=== PATIENT | female | born 1960 | race Caucasian/White ===

== ENCOUNTER 2022-06-15 16:51 | Outpatient (REF) | payer MEDICARE, MEDICAID, SELFPAY ==
[2022-06-15 16:38] LABS: ALT 20 U/L (14-59); AST 18 U/L (15-37); Albumin 3.9 g/dL (3.4-5.0); Alkaline Phosphatase 125 U/L (46-116); Anion Gap 8.6 mmol/L (3-11); BUN 26 mg/dL (7-18); Bilirubin, Total 0.3 mg/dL (0.2-1.0); CO2 29.4 mmol/L (21.0-32.0); CREATININE 0.9 mg/dL (0.55-1.02); Calcium 9.2 mg/dL (8.5-10.1); Chloride 99 mmol/L (98-107); Estimated GFR 72.28 (mL/min/1.73m2); Glucose 147 mg/dL (74-106); Potassium 4.1 mmol/L (3.5-5.1); Sodium 137 mmol/L (136-145)
[2022-06-16 17:18] LABS: COMMENT (LAB VIEW ONLY) 64.76 mg/dL; Microalb ug/mg Crea 4.3 ug/mg Cr
[2022-06-16 17:23] LABS: Bilirubin Negative (Negative); Blood Trace-intact (Negative); Clarity Clear (Clear); Glucose Negative (Negative); Ketones Negative (Negative); Leukocyte Esterase Small (Negative); Nitrite Negative (Negative); Specific Gravity 1.015 (1.005-1.025); Urobilinogen 0.2 EU/dL (Up TO 0.2); pH 6.5 (5-8)
[2022-06-16 17:38] LABS: Bacteria Few HPF (Negative); C & S Indicated? Yes; Crystals Negative HPF (Negative); Epithelial Cells Few HPF (Negative); Mucus Trace (Negative); RBC 0-2 HPF (0-2)
== END 2022-06-15 16:52 | disposition home or self-care (01) ==
LOC: NCHCN 16:51
PROVIDERS: PCP Nurse Practitioner Family; Visit Provider Nurse Practitioner Family
DX: N39.0 Urinary tract infection, site not specified (principal)
CPT/HCPCS: 80053; 81003; 81015; 82043; 82570; 87086

== ENCOUNTER 2022-08-02 11:02 | Outpatient (REF) | payer MEDICARE, MEDICAID, SELFPAY ==
[2022-08-02 10:03] LABS: Abs Immature Grans 0.04 10^3/uL (0.0-0.06); Absolute Basophil Count 0.08 10^3/uL (0.0-0.2); Absolute Eosinophil Count 0.08 10^3/uL (0.0-0.7); Absolute Lymphocyte Count 1.77 10^3/uL (1.2-3.4); Basophils % 0.9; Eosinophils % 0.9; HCT 43.3 % (36.0-46.0); HGB 13.5 g/dL (11.2-15.7); Immature Grans % 0.4; Lymphocytes % 19.5; MCH 30.5 pg (27.0-33.0); MCHC 31.2 % (32.0-36.0); MCV 98 fL (80-95); MPV 9.9 fL (8.0-11.0); Monocytes % 5.5; Neutrophils % 72.8; Platelet Count 245 10^3/uL (130-400); RBC 4.43 10^6/uL (3.93-5.22); RDW 14.2 % (11.7-14.6); RDW-SD 51.9 fL; WBC 9.07 10^3/uL (4.4-10.8)
[2022-08-02 10:12] LABS: Iron 119 ug/dL (50-170); Total Iron Binding Capacity 370 ug/dL (250-450); Transferrin Sat 32 % (15-50)
[2022-08-02 10:36] LABS: Vitamin D 25 Total 55.3 ng/mL (30-100)
[2022-08-02 10:42] LABS: ALT 18 U/L (14-59); AST 13 U/L (15-37); Albumin 3.8 g/dL (3.4-5.0); Alkaline Phosphatase 116 U/L (46-116); BUN 21 mg/dL (7-18); Bilirubin, Total 0.3 mg/dL (0.2-1.0); CREATININE 0.8 mg/dL (0.55-1.02); Calcium 9.5 mg/dL (8.5-10.1); Chloride 102 mmol/L (98-107); Estimated GFR 83.26 (mL/min/1.73m2); Ferritin 29 ng/mL (8-252); Glucose 110 mg/dL (74-106); Magnesium 1.8 mg/dL (1.8-2.4); Potassium 4.3 mmol/L (3.5-5.1); Sodium 139 mmol/L (136-145); TSH (W/Ref FT4) 1.83 uIU/mL (0.36-3.74); Total Protein 6.7 g/dL (6.4-8.2); Vitamin B12 1583 pg/mL (193-986)
[2022-08-02 10:49] LABS: GGT 19 U/L (5-55)
[2022-08-02 12:01] LABS: Hemoglobin A1C 5.9 % (<5.7)
[2022-08-02 23:42] LABS: Parathyroid Hormone,Intact 38 pg/mL (19-88)
[2022-08-05 20:17] LABS: Thiamine (Vitamin B1), WB 168 nmol/L (70-180)
== END 2022-08-02 11:03 | disposition home or self-care (01) ==
LOC: NCHCN 11:02
PROVIDERS: PCP Nurse Practitioner Family; Visit Provider Nurse Practitioner Family
DX: E66.9 Obesity, unspecified (principal); R73.03 Prediabetes; K59.00 Constipation, unspecified; E55.9 Vitamin D deficiency, unspecified; E03.9 Hypothyroidism, unspecified; E53.8 Deficiency of other specified B group vitamins; I25.10 Atherosclerotic heart disease of native coronary artery without angina pectoris
CPT/HCPCS: 80053; 82306; 82607; 82728; 82977; 83036; 83540; 83550; 83735; 83970; 84425; 84443; 85025

== ENCOUNTER 2022-08-20 00:42 | Outpatient (CLI) | payer MEDICARE, MEDICAID, SELFPAY ==
--- NOTE | 2022-08-20 | DI.CTLCSR_ITS ---
Exam(s) CT CHEST LUNG CANCER SCREEN EXAM: CT CHEST LUNG CANCER SCREEN CLINICAL HISTORY: SCREENING FOR LUNG CA, SMOKER,F17.210 TECHNIQUE: Imaging Protocol: Axial computed tomography images with coronal and sagittal reformatted images were created and reviewed COMPARISON: No exams were available for comparison FINDINGS: Tracheobronchial tree: Patent where visualized. Pulmonary parenchyma: No consolidation or dominant measurable mass. No architectural distortion. Ther e are calcified granuloma present. Lung Nodules: There is a 4 mm nodule in the right lower lobe. Mediastinum and Ruth: No dominant adenopathy or fluid collection. The esophagus is unremarkable. Thyroid gland: Unremarkable. Lymph nodes: Unremarkable. Pleura: No effusion or pneumothorax. Heart: The heart is not dilated. Moderate coronary artery calcification is present. No pericardial e ffusion. Aorta: Thoracic aorta non-dilated.Atherosclerosis is present. Upper abdomen: Status post cholecystectomy. Soft Tissues: Unremarkable. Bones: Within normal limits. IMPRESSION: 4 mm noncalcified right lower lobe pulmonary nodule. Lung RADS Cat 3 - Probably Benign: Probably benign finding(s) - short term follow-up suggested; inclu de nodules with a low likelihood of becoming a clinically active cancer. Lung-RADS 1.0 CATEGORIES: Category 0 - Prior chest CT exam(s) being located for comparison. Category 1 - Annual screening in 12 months. No nodules or definitely benign nodules. Category 2 - Annual screening in 12 months. Benign appearance. Nodules with low likelihood of becomin g active cancer. Category 3 - 6-month follow-up. Probably benign. Short-term follow-up suggested. Nodules with low lik elihood of becoming active cancer. Category 4A - 3-month follow-up and CT/PET if >8 mm in size. Suspicious finding. Findings which requi re additional testing. Category 4B - Findings which require additional testing and tissue sampling. Suspicious finding. Category 4X - Category 3 or 4 nodules with additional features or imaging findings that increases the suspicion of malignancy. Modifier S- Potentially clinically significant finding. (Non lung cancer) RADIATION DOSE DELIVERED: 87.29mGy.cm Total DLP 87.29mGy.cmTotal DLP DATA REPOSITORY: All CT scans at this facility are submitted to the National Radiology Data Registry (NRDR) Dose Index Registry (DIR) with the [employer] (ACR). RADIATION OPTIMIZATION: All CT scans at this facility use at least one of these dose optimization te chniques: automated exposure control; mA and/or kV adjustment per patient size (includes targeted exa ms where dose is matched to clinical indication); or iterative reconstruction.
== END 2022-08-20 01:02 ==
LOC: DI 00:42
PROVIDERS: PCP Nurse Practitioner Family; Visit Provider Nurse Practitioner Family
DX: Z12.2 Encounter for screening for malignant neoplasm of respiratory organs (principal); F17.210 Nicotine dependence, cigarettes, uncomplicated; R91.1 Solitary pulmonary nodule
CPT/HCPCS: 71271

== ENCOUNTER 2022-09-09 13:37 | Outpatient (REF) | payer MEDICARE, MEDICAID, SELFPAY ==
[2022-09-09 10:17] LABS: Abs Immature Grans 0.03 10^3/uL (0.0-0.06); Absolute Basophil Count 0.06 10^3/uL (0.0-0.2); Absolute Eosinophil Count 0.08 10^3/uL (0.0-0.7); Absolute Monocyte Count 0.55 10^3/uL (0.1-0.8); Absolute Neutrophil Count 5.84 10^3/uL (1.2-6.7); Basophils % 0.7; HCT 42.6 % (36.0-46.0); HGB 13.6 g/dL (11.2-15.7); Immature Grans % 0.4; Lymphocytes % 18.6; MCH 31.2 pg (27.0-33.0); MCHC 31.9 % (32.0-36.0); MCV 98 fL (80-95); MPV 10.1 fL (8.0-11.0); Monocytes % 6.8; Neutrophils % 72.5; Platelet Count 222 10^3/uL (130-400); RBC 4.36 10^6/uL (3.93-5.22); RDW 14.1 % (11.7-14.6); RDW-SD 50.8 fL; WBC 8.06 10^3/uL (4.4-10.8)
[2022-09-09 10:34] LABS: VALPROIC ACID 17.9 ug/mL
[2022-09-09 10:44] LABS: Hemoglobin A1C 5.8 % (<5.7)
[2022-09-09 10:59] LABS: ALT 17 U/L (14-59); AST 11 U/L (15-37); Albumin 3.8 g/dL (3.4-5.0); Alkaline Phosphatase 113 U/L (46-116); BUN 20 mg/dL (7-18); Bilirubin, Total 0.4 mg/dL (0.2-1.0); CREATININE 0.8 mg/dL (0.55-1.02); Calcium 9.4 mg/dL (8.5-10.1); Calculated LDL 41 mg/dL (<100); Chloride 102 mmol/L (98-107); Cholesterol 104 mg/dL (<200); Estimated GFR 83.26 (mL/min/1.73m2); Folate 13.1 ng/mL (8.6-20.0); Glucose 88 mg/dL (74-106); HDL Cholesterol 52 mg/dL (40-60); Potassium 4.7 mmol/L (3.5-5.1); Sodium 140 mmol/L (136-145); Total Protein 6.5 g/dL (6.4-8.2); Triglyceride 56 mg/dL (<150)
[2022-09-09 11:01] LABS: Vitamin D 25 Total 58.4 ng/mL (30-100)
[2022-09-09 11:02] LABS: Vitamin B12 > 2000 pg/mL (193-986)
[2022-09-09 11:19] LABS: FREE T4 1.23 ng/dL (0.76-1.46)
[2022-09-13 09:43] LABS: Insulin 7.8 uIU/mL (<29.0)
== END 2022-09-09 13:38 | disposition home or self-care (01) ==
LOC: LBN 13:37
PROVIDERS: PCP Nurse Practitioner Family; Visit Provider Psychiatry & Neurology Psychiatry
DX: Z79.899 Other long term (current) drug therapy (principal); Z51.81 Encounter for therapeutic drug level monitoring; E03.9 Hypothyroidism, unspecified; E53.8 Deficiency of other specified B group vitamins; E55.9 Vitamin D deficiency, unspecified; E66.8 Other obesity; R73.03 Prediabetes
CPT/HCPCS: 80053; 80061; 82306; 83090; 80164; 82607; 82746; 83036; 83525; 83735; 84439; 84443; 85025

== ENCOUNTER 2022-09-16 11:40 | Observation (INO) | payer MEDICARE, MEDICAID, SELFPAY ==
[2022-09-16 11:40] VITALS: BP 157/75; PULSE 54; RESP 18; TEMP 36.9; O2SAT 95
--- NOTE | 2022-09-16 11:45 | DI.RAD_ITS ---
Exam(s) XR ANKLE RT COMPLETE EXAM: XR ANKLE RT COMPLETE CLINICAL HISTORY: fall, pain. TECHNIQUE: 2D digital imaging was performed of the right ankle. Three images were obtained. AP, la teral and oblique views were obtained. COMPARISON: No exams were available for comparison FINDINGS: BONES: There is an old healed distal fibular fracture. There is an acute comminuted oblique fracture through the metadiaphyseal junction of the distal right tibia. The distal fracture is displaced 1/2 shaft's with laterally. No bony destructive lesion is seen. JOINTS: The ankle mortise is normally aligned. SOFT TISSUE: There is soft tissue swelling about the ankle. IMPRESSION: Acute comminuted displaced fracture of the distal metadiaphyseal junction of the right tibia. Associ ated soft tissue swelling. DATA REPOSITORY: RADIATION DOSE DELIVERED:
--- NOTE | 2022-09-16 11:59 | ED.GENADUL_ITS ---
Discharge Plan Disposition Patient Disposition: Admit to [facility] Condition: Fair Discharge Details Clinical Impression: Closed right tibial fracture, Fall Admit Date/Time: 09/16/22 14:05 Admit Provider: Yannick Saldaña Attending Provider: Yannick Saldaña Primary Care Provider: Jolly Davenport ED Provider: Nuno Purdy Discharge Data Discharge Date/Time-TO BE ENTERED AT DEPARTURE: 09/16/22 15:17 Medical Decision Making 1253??62-year-old female presents after mechanical fall from standing using her walker to the ground with injury to her right ankle. Ankle is exquisitely tender. Concern for fracture. Patient is neurovascular intact distal to injury. No proximal lower leg tenderness. Dilaudid 1 mg IM for pain. Will obtain x-ray 1350 --x-ray of the ankle was reviewed and interpreted by me: Displaced oblique fracture distal tibia. I called and spoke with Dr. Box, on-call orthopedics who evaluated the patient. He recommends posterior splint and CT of the leg. He recommends admission to hospitalist service given medical problems. Posterior splint was applied by me without complication. Patient neurovascular intact post splint application. HPI General Mode of arrival: EMS . Date/Time Provider Initiated Documentation: 09/16/22 11:58 . Limitations to Documentation: no limitations . Information obtained by: patient . HPI Narrative: 62-year-old female here after mechanical fall with injury to her right ankle. Pain in her ankle severe and worse with any movement. No associated numbness or tingling. No other injury sustained. Patient denies neck pain or back pain. Related Data Home Medications Medication Instructions Recorded Confirmed Lactobacillus rhamnosus GG 10 1 cap PO DAILY 09/16/22 09/16/22 billion cell capsule (Culturelle) acetaminophen 500 mg capsule 1,000 mg PO QHS PRN 09/16/22 09/16/22 albuterol 90 mcg/actuation aerosol 90 mcg inhalation Q6H PRN PRN 09/16/22 09/16/22 inhaler ascorbic acid (vitamin C) 1,000 mg 1,000 mg PO DAILY 09/16/22 09/16/22 tablet atorvastatin 40 mg tablet 40 mg PO QPM 09/16/22 09/16/22 calcium citrate 200 mg PO BID 09/16/22 09/16/22 cannabidiol 100 mg/mL oral solution 100 mg PO DAILY 09/16/22 09/16/22 cholecalciferol (vitamin D3) 25 75 mcg PO HS 09/16/22 09/16/22 mcg (1,000 unit) tablet clonazepam 0.5 mg tablet (Klonopin) 0.5 mg PO QPM 09/16/22 09/16/22 cyanocobalamin (vitamin B-12) 1,000 mcg PO HS 09/16/22 09/16/22 1,000 mcg tablet (Vitamin B-12) divalproex 250 mg tablet,extended 250 mg PO QPM 09/16/22 09/16/22 release 24 hr famotidine 20 mg tablet (Pepcid) 20 mg PO DAILY 09/16/22 09/16/22 ferrous sulfate 325 mg (65 mg 325 mg PO DIRECTED 09/16/22 09/16/22 iron) tablet (FeroSul) fluoxetine 20 mg capsule 20 mg PO DAILY 09/16/22 09/16/22 fluticasone 500 mcg-salmeterol 50 1 inh inhalation BID 09/16/22 09/16/22 mcg/dose blistr powdr for inhalation (Advair Diskus) ibuprofen 800 mg tablet 800 mg PO Q8H PRN PRN 09/16/22 09/16/22 lamotrigine 200 mg tablet 200 mg PO QPM 09/16/22 09/16/22 levothyroxine 50 mcg tablet 50 mcg PO DAILY 09/16/22 09/16/22 magnesium oxide 400 mg PO QPM 09/16/22 09/16/22 nicotine (polacrilex) 2 mg gum 2 mg buccal Q2H 09/16/22 09/16/22 nicotine 14 mg/24 hr daily 1 patch transdermal DAILY 09/16/22 09/16/22 transdermal patch nitroglycerin 0.4 mg sublingual 0.4 mg sublingual Q5M PRN 09/16/22 09/16/22 tablet omeprazole 20 mg capsule,delayed 20 mg PO DAILY PRN PRN 09/16/22 09/16/22 release phenyleph-shark liver 1 applic NV QID PRN PRN 09/16/22 09/16/22 uno-[id number]-vjh rectal cream polyethylene glycol 3350 17 gram 17 g PO DAILY 09/16/22 09/16/22 oral powder packet (Miralax) prazosin 2 mg capsule 6 mg PO QPM 09/16/22 09/16/22 sennosides 8.6 mg tablet (senna) 8.6 mg PO QPM 09/16/22 09/16/22 tiotropium bromide 2.5 2 puff inhalation QHS 09/16/22 09/16/22 mcg/actuation mist for inhalation (Spiriva Respimat) tizanidine 4 mg tablet 4 mg PO QHS PRN 09/16/22 09/16/22 trazodone 50 mg tablet 50 mg PO QHS PRN Insomnia 09/16/22 09/16/22 aspirin 81 mg chewable tablet 81 mg PO BID #0 tabs 09/18/22 09/16/22 calcium citrate 200 mg (950 mg) 950 mg PO DAILY #0 tabs 09/18/22 tablet clonazepam 0.5 mg tablet 0.5 mg PO BID PRN PRN Anxiety #0 09/18/22 tabs docusate sodium 100 mg capsule 100 mg PO TID PRN PRN #0 caps 09/18/22 (Colace) oxycodone 5 mg tablet 5 mg PO Q4H PRN PRN #0 tabs 09/18/22 prazosin 2 mg capsule (Minipress) 6 mg PO QPM #0 caps 09/18/22 tizanidine 4 mg tablet 4 mg PO BID #0 tabs 09/18/22 Previous Rx's Medication Instructions Recorded aspirin 81 mg chewable tablet 81 mg PO BID #0 tabs 09/18/22 calcium citrate 200 mg (950 mg) 950 mg PO DAILY #0 tabs 09/18/22 tablet clonazepam 0.5 mg tablet 0.5 mg PO BID PRN PRN Anxiety #0 09/18/22 tabs docusate sodium 100 mg capsule 100 mg PO TID PRN PRN #0 caps 09/18/22 (Colace) oxycodone 5 mg tablet 5 mg PO Q4H PRN PRN #0 tabs 09/18/22 prazosin 2 mg capsule (Minipress) 6 mg PO QPM #0 caps 09/18/22 tizanidine 4 mg tablet 4 mg PO BID #0 tabs 09/18/22 Allergies Allergy/AdvReac Type Severity Reaction Status Date / Time sumatriptan [From Imitrex] Allergy Unverified 09/16/22 11:44 General Stated Complaint: Orthopedic GEOFFREY: 3 Review of Systems All systems reviewed & are unremarkable except as noted in HPI and below Musculoskeletal Musculoskeletal: Reports as per HPI PFSH All Active Problems (Updated 09/19/22 @ 00:04 by ANNALISE ELAINE) Fracture of right tibia and fibula (Acute) Fracture of left proximal fibula (Acute) Closed fracture of left distal tibia (Acute) Medical History Asthma CAD (coronary artery disease) Cervical stenosis of spinal canal Chronic neck pain with history of cervical spinal surgery Migraine Prediabetes Smoker Surgical History Stented coronary artery Social History Smoking/Tobacco Use Status: Current every day Tobacco Type: cigarettes Smoking risk assessment performed?: Yes Alcohol Intake: never Substance use type: marijuana Do you feel safe at home: Yes Do you feel safe in your relationship?: Yes Exam Const General: cooperative and no acute distress HENMT Head: atraumatic Mouth: moist mucous membranes Cardio Rate: regular rate and not tachycardic Rhythm: regular rhythm Back/Spine/Pelvis Cervical Spine: cervical ROM normal, No cervical spinal tenderness and No step off deformity Thoracic/Lumbar Spine: No thoracic spinal tenderness and No lumbar spinal tenderness Neuro General: patient alert, patient awake and tone normal Extrem Right lower extremity: lower leg Details: no tenderness, ankle Details: tenderness Location: of the lateral malleolus and of the medial malleolus and foot Details: normal to inspection, toes with normal ROM, vascular exam Details: dorsalis pedis pulse present and motor-sensory exam Details: light-touch normal; no tenderness Course Vital Signs Vital signs: Vital Signs Temperature 36.9 C 09/16/22 11:40 Pulse 54 L 09/16/22 11:40 Respiratory Rate 18 09/16/22 11:40 Blood Pressure 157/75 H 09/16/22 11:40 Pulse Oximetry 95 09/16/22 11:40 Temperature 36.9 C 09/16/22 11:40 Temperature Source Oral 09/16/22 11:40 Pulse 54 L 09/16/22 11:40 Respiratory Rate 18 09/16/22 11:40 Respiratory Effort Normal, Non-Labored 09/16/22 11:43 Blood Pressure 157/75 H 09/16/22 11:40 Pulse Oximetry 95 09/16/22 11:40 Oxygen Delivery Method Room Air 09/16/22 11:40 Oxygen Flow Rate 0 09/16/22 11:40 Pain Level 6 09/16/22 11:45 Procedures Orthopedic Splinting/Casting Injury #1: Side: right Lower Extremity Injury Location: lower leg Lower Extremity Immobilizer: posterior splint Additional Comments: Neurovascular intact post splint application
[2022-09-16] MEDS: HYDROmorphone 2 MG/ML SYR 1 MG IM (12:11)
[2022-09-16 13:04] VITALS: BP 127/78; PULSE 66; RESP 16; O2SAT 97
[2022-09-16 13:05] VITALS: BP 127/78; PULSE 60; O2SAT 97
--- NOTE | 2022-09-16 13:30 | DI.CT_ITS ---
Exam(s) CT LOWER EXTREMITY RT WO EXAM: CT LOWER EXTREMITY RT WO CLINICAL HISTORY: fracture distal tibia, request from ortho. TECHNIQUE: Imaging Protocol: Axial computed tomography images with coronal and sagittal reformatted images were created and reviewed. COMPARISON: CR XR ANKLE RT COMPLETE from 09/16/2022 FINDINGS: Bones: There is an acute fracture involving the metadiaphyseal junction of the distal tibia. There is lateral displacement of the distal fracture 1/2 shaft's width. There is an old healed distal fibu lar fracture. There is a well corticated osseous density at the lateral aspect of the distal tibia w hich is chronic. No cellulitic or osteomyelitic changes are identified. There is no evidence of luanne nt space narrowing or cystic degeneration seen. No lytic or sclerotic lesions are identified. Soft Tissues: There is edema in the soft tissues of the lower extremity. IMPRESSION: Comminuted displaced distal right tibial fracture as described above. RADIATION DOSE DELIVERED: 246.26mGy.cm Total DLP 246.26mGy.cm Total DLP DATA REPOSITORY: All CT scans at this facility are submitted to the National Radiology Data Registry (NRDR) Dose Index Registry (DIR) with the [employer] (ACR). RADIATION OPTIMIZATION: All CT scans at this facility use at least one of these dose optimization te chniques: automated exposure control; mA and/or kV adjustment per patient size (includes targeted exa ms where dose is matched to clinical indication); or iterative reconstruction.
[2022-09-16 13:56] LABS: Source Nasal/Nares
[2022-09-16 13:58] LABS: Abs Immature Grans 0.06 10^3/uL (0.0-0.06); Absolute Basophil Count 0.07 10^3/uL (0.0-0.2); Absolute Eosinophil Count 0.07 10^3/uL (0.0-0.7); Absolute Lymphocyte Count 1.38 10^3/uL (1.2-3.4); Basophils % 0.5; Eosinophils % 0.5; HCT 40.8 % (36.0-46.0); Immature Grans % 0.4; Lymphocytes % 9.7; MCHC 31.9 % (32.0-36.0); MCV 97 fL (80-95); MPV 9.4 fL (8.0-11.0); Monocytes % 5.6; Neutrophils % 83.3; Platelet Count 235 10^3/uL (130-400); RBC 4.19 10^6/uL (3.93-5.22); RDW 14.2 % (11.7-14.6); RDW-SD 51.2 fL; WBC 14.23 10^3/uL (4.4-10.8)
[2022-09-16 13:59] LABS: Absolute Neutrophil Count 11.85 10^3/uL (1.2-6.7)
--- NOTE | 2022-09-16 14:00 | DI.RAD_ITS ---
Exam(s) XR CHEST 2V PA LATERAL EXAM: XR CHEST 2V PA LATERAL CLINICAL HISTORY: elev wbc, preop TECHNIQUE: 2D digital imaging was performed of the chest. Three images were obtained. PA and later al views were obtained. COMPARISON: CT CT CHEST LUNG CANCER SCREEN from 08/20/2022 FINDINGS: MEDIASTINUM: Normal. HEART: Normal. PULMONARY VASCULATURE: Normal. LUNGS: Clear. PLEURAL SPACE: No pleural effusion or pneumothorax. BONE:Within normal limits for the patient's age. Calcifications are seen centrally in the proximal m etaphysis of the left humerus. These findings are most suggestive of an enchondroma. These findings are present on the prior CT scan of the chest. OTHER FINDINGS:Normal. IMPRESSION: No acute pulmonary findings. DATA REPOSITORY: RADIATION DOSE DELIVERED:
--- NOTE | 2022-09-16 14:00 | RT.EKG_ITS ---
APPROVED REPORT Exam: Resting ECG Reason for Exam: preop Patient Location: E HR:60 bpm ECG Measurements Heart Rate 60 AXIS RI 143 P 18 QRSd 88 QRS 33 QT 404 T 28 QTc 405 Conclusion Sinus rhythm...normal P axis, V-rate 60- 99 Low voltage, extremity leads...all extremity leads <0.5mV
--- NOTE | 2022-09-16 14:08 | OCONE_ITS ---
Date of service: 09/16/22 Time of Service: 14:09 History of Present Illness History of Present Illness Chief Complaint: Right leg deformity and pain Narrative: Jeannie is a 62-year-old who lives at the [facility]. She was mobilizing to the bathroom when she tripped and fell. When she went down she had a twisting injury to her right leg and had immediate deformity and pain. She is brought to the emergency department and diagnosed with a right tibia and fibula fracture. She does have a longstanding history of cardiovascular disease as well as seizure disorder. However, she reports all these have been stable. She denies any modification to her health in the last years. She has been living at [facility] for the last few months. She uses a walker for all mobilization. She denies any numbness or tingling which is new from this fall. She denies any issues with this right leg prior to the fall. Consults Consult date: 09/16/22 Requesting physician: Nuno Purdy Consult Reason Right distal tibia fracture Assessment and Plan Assessment and plan (1) Closed right tibial fracture: Status: Acute Assessment and plan: Jeannie is a 62-year-old resident of the [facility] who had a mechanical fall today twisting her right ankle suffering a distal tibia fracture. There is notable displacement. Given this fracture pattern I recommend proceeding with operative fixation. This would allow for early mobilization and more accurate control of fracture positioning. She does have multiple medical issues although they seem to be stable. Therefore, I do recommend admission to the hospital service for medical management. I discussed treatment options with Jeannie and recommended proceeding with operative fixation of the right distal tibia, likely with an intramedullary nail. The fracture pattern, although low, would still allow 3 screws to be placed in the distal segment which should be adequate for stability. I discussed treatment options with her and she agrees to proceed with surgery. I reviewed the risk include bleeding, infection, pain, stiffness, malunion, nonunion, malrotation, damage to nerves and vessels, damage to muscle and tendons, loss of reduction, hardware failure, however prominence, blood clot, need for repeat procedures, cardiopulmonary demise. After answering her questions and discussing these risks, she elects to proceed. Review of Systems All systems reviewed & are unremarkable except as noted in HPI and below PFSH All Active Problems DVT prophylaxis (Acute) Discharge planning issues (Acute) Closed right tibial fracture (Acute) Fall (Acute) Medical History Asthma CAD (coronary artery disease) Cervical stenosis of spinal canal Chronic neck pain with history of cervical spinal surgery Migraine Prediabetes Smoker Surgical History Stented coronary artery Social History Smoking/Tobacco Use Status: Current every day Tobacco Type: cigarettes Smoking risk assessment performed?: Yes Alcohol Intake: never Substance use type: marijuana Do you feel safe at home: Yes Do you feel safe in your relationship?: Yes Exam Narrative Exam Narrative: Resting in the hospital stretcher. Appears comfortable. Alert and oriented x3. Head is normocephalic and atraumatic. No pain with head or neck range of motion. No gross deformities upper extremities that she is able to demonstrate full active range of motion of both upper extremities. Extrem Other: Evaluation of the right lower extremity shows an externally rotated foot in comparison to the right knee. There is no skin breakdown. No lacerations or abrasions. No pain to palpation of the knee, thigh. No significant ecchymosis is appreciated she endorses sensation over the superficial and deep peroneal nerve as well as the tibial nerve. Palpable DP and PT pulse. Results Last Vital Signs Temp 36.9 C 09/16/22 11:40 Pulse 66 09/16/22 13:04 Resp 16 09/16/22 13:04 BP 127/78 09/16/22 13:04 Pulse Ox 97 09/16/22 13:04 Labs 09/16/22 13:50 09/16/22 13:50 Labs: Laboratory Results - last 24 hr 09/16/22 09/16/22 13:50 13:50 WBC 14.23 H RBC 4.19 Hgb 13.0 Hct 40.8 MCV 97 H MCH 31.0 MCHC 31.9 L RDW 14.2 Plt Count 235 MPV 9.4 Immature Gran % 0.4 Neutrophils % 83.3 Lymphocytes % 9.7 Monocytes % 5.6 Eosinophils % 0.5 Basophils % 0.5 Nucleated RBC % 0.0 Absolute Neutrophils 11.85 H Absolute Lymphocytes 1.38 Absolute Monocytes 0.80 Absolute Eosinophils 0.07 Absolute Basophils 0.07 COVID-19 Source Nasal/Nares Imaging Imaging Studies: X-ray of the right ankle shows a displaced distal tibia fracture with lateral displacement. Is a short oblique fracture in the metaphyseal region. There appears to be a subacute fracture of the distal fibula. CT scan of the right ankle demonstrates the above-mentioned fracture of the distal tibia. There is no apparent fracture line extending into the joint surface. No articular involvement. The distalmost aspect of the fracture plane is approximately 24 mm above the physeal scar.
[2022-09-16 14:21] LABS: Anion Gap 5.7 mmol/L (3-11); BUN 22 mg/dL (7-18); CO2 30.3 mmol/L (21.0-32.0); CREATININE 0.8 mg/dL (0.55-1.02); Chloride 104 mmol/L (98-107); Estimated GFR 83.26 (mL/min/1.73m2); Glucose 99 mg/dL (74-106); Potassium 5.1 mmol/L (3.5-5.1); Sodium 140 mmol/L (136-145)
[2022-09-16 14:29] LABS: COVID-19 PCR Negative (Negative)
[2022-09-16 15:45] VITALS: BP 150/79; PULSE 59; RESP 20; TEMP 36.9; O2SAT 93
[2022-09-16] MEDS: HYDROmorphone 2 MG/ML SYR 0.5 MG IVP (16:18)
[2022-09-16] MEDS: Normal Saline Flush 10 ML SYR IVP (16:19)
[2022-09-16 17:05] LABS: Bilirubin Negative (Negative); Blood Negative (Negative); Clarity Sl Cloudy (Clear); Glucose Negative (Negative); Ketones Negative (Negative); Leukocyte Esterase Moderate (Negative); Nitrite Negative (Negative); Urobilinogen 0.2 mg/dL (Up to 0.2)
[2022-09-16 17:20] LABS: Bacteria Moderate HPF (Negative); C & S Indicated? Yes; Casts Negative LPF (Negative); Crystals Negative HPF (Negative); Epithelial Cells Few HPF (Negative); Mucus Negative (Negative); RBC 0-2 HPF (0-2)
--- NOTE | 2022-09-16 17:43 | HPE_ITS ---
Date of service: 09/16/22 Time of Service: 17:00 Assessment and Plan Assessment and plan (1) Closed right tibial fracture: Status: Deleted Assessment and plan: NPO after midnight Ice, immobilize, elevate, IVF Ketorolac and hydromorphone for pain Plan ortho to take her to OR 09/17 She would like to go to [facility] for rehab (2) Fall: Status: Deleted Assessment and plan: Fx right lower leg; see above (3) Chronic neck pain with history of cervical spinal surgery: Assessment and plan: Recent surgery at [facility] for cervical spinal stenosis; stable (4) Smoker: Assessment and plan: Continues to smoke 5 cigarettes/day 60 pack years - she moved to the [facility] 4 months ago and has slowed down to 5/d (5) CAD (coronary artery disease): Assessment and plan: Stents x2 2006 @ [facility] one vessel occluded 96%, the other 76% (6) Prediabetes: Assessment and plan: unknown A1C - will add on to ED labs (7) Asthma: Assessment and plan: Stable; continues to smoke (8) DVT prophylaxis: Status: Deleted Assessment and plan: Held for OR (9) Discharge planning issues: Status: Deleted Assessment and plan: Would like to rehab at [facility] History of Present Illness History of Present Illness Chief Complaint: Right leg pain Narrative: This is a 62-year-old female patient with past medical history of presented to the [facility] ED after a mechanical fall from standing while using her walker, with injury to her right ankle.? Pain in her ankle severe and worse with any movement, she denied associated numbness or tingling.? No other injury sustained.?She states she did not hit her head and did not have any dizziness. Patient denies neck pain or back pain. Xray in the ED revealed oblique displaced fracture of the right distal tibia. She was put in a posterior splint and given dilaudid for pain. She was evaluated by orthopedics; they will take her to the OR tomorrow, 09/17/2022 for repair. She is NPO after midnight. [facility] pharmacy order for med rec placed. She does not have PCP in the area, although she lives at the [facility]. Review of Systems All systems reviewed & are unremarkable except as noted in HPI and below PFSH All Active Problems (Updated 10/11/22 @ 10:36 by Raffi Rosas RN) Fracture of right tibia and fibula (Acute) S/P IM FIXATION Fracture of left proximal fibula (Acute) Closed fracture of left distal tibia (Acute) Medical History Asthma CAD (coronary artery disease) Cervical stenosis of spinal canal Chronic neck pain with history of cervical spinal surgery Migraine Prediabetes Smoker Surgical History Stented coronary artery Social History Smoking/Tobacco Use Status: Current every day Tobacco Type: cigarettes Smoking risk assessment performed?: Yes Alcohol Intake: never Substance use type: marijuana Do you feel safe at home: Yes Do you feel safe in your relationship?: Yes Meds Allergies and Home Medications Allergies Allergy/AdvReac Type Severity Reaction Status Date / Time sumatriptan [From Imitrex] Allergy Unverified 10/11/22 10:26 Home Medications Medication Instructions Recorded Confirmed Type Lactobacillus rhamnosus GG 10 1 cap PO DAILY 09/16/22 10/11/22 History billion cell capsule (Culturelle) acetaminophen 500 mg capsule 1,000 mg PO QHS PRN 09/16/22 10/11/22 History albuterol 90 mcg/actuation aerosol 90 mcg inhalation Q6H PRN PRN 09/16/22 10/11/22 History inhaler ascorbic acid (vitamin C) 1,000 mg 1,000 mg PO DAILY 09/16/22 10/11/22 History tablet atorvastatin 40 mg tablet 40 mg PO QPM 09/16/22 10/11/22 History calcium citrate 200 mg PO BID 09/16/22 10/11/22 History cannabidiol 100 mg/mL oral solution 100 mg PO DAILY 09/16/22 10/11/22 History cholecalciferol (vitamin D3) 25 75 mcg PO HS 09/16/22 10/11/22 History mcg (1,000 unit) tablet clonazepam 0.5 mg tablet (Klonopin) 0.5 mg PO QPM 09/16/22 10/11/22 History cyanocobalamin (vitamin B-12) 1,000 mcg PO HS 09/16/22 10/11/22 History 1,000 mcg tablet (Vitamin B-12) divalproex 250 mg tablet,extended 250 mg PO QPM 09/16/22 10/11/22 History release 24 hr famotidine 20 mg tablet (Pepcid) 20 mg PO DAILY 09/16/22 10/11/22 History ferrous sulfate 325 mg (65 mg 325 mg PO DIRECTED 09/16/22 10/11/22 History iron) tablet (FeroSul) fluoxetine 20 mg capsule 20 mg PO DAILY 09/16/22 10/11/22 History fluticasone 500 mcg-salmeterol 50 1 inh inhalation BID 09/16/22 10/11/22 History mcg/dose blistr powdr for inhalation (Advair Diskus) ibuprofen 800 mg tablet 800 mg PO Q8H PRN PRN 09/16/22 10/11/22 History lamotrigine 200 mg tablet 200 mg PO QPM 09/16/22 10/11/22 History levothyroxine 50 mcg tablet 50 mcg PO DAILY 09/16/22 10/11/22 History magnesium oxide 400 mg PO QPM 09/16/22 10/11/22 History nicotine (polacrilex) 2 mg gum 2 mg buccal Q2H 09/16/22 10/11/22 History nicotine 14 mg/24 hr daily 1 patch transdermal DAILY 09/16/22 10/11/22 History transdermal patch nitroglycerin 0.4 mg sublingual 0.4 mg sublingual Q5M PRN 09/16/22 10/11/22 History tablet omeprazole 20 mg capsule,delayed 20 mg PO DAILY PRN PRN 09/16/22 10/11/22 History release polyethylene glycol 3350 17 gram 17 g PO DAILY 09/16/22 10/11/22 History oral powder packet (Miralax) sennosides 8.6 mg tablet (senna) 8.6 mg PO QPM 09/16/22 10/11/22 History tiotropium bromide 2.5 2 puff inhalation QHS 09/16/22 10/11/22 History mcg/actuation mist for inhalation (Spiriva Respimat) tizanidine 4 mg tablet 4 mg PO QHS PRN 09/16/22 10/11/22 History trazodone 50 mg tablet 50 mg PO QHS PRN Insomnia 09/16/22 10/11/22 History aspirin 81 mg chewable tablet 81 mg PO BID #0 tabs 09/18/22 10/11/22 Rx calcium citrate 200 mg (950 mg) 950 mg PO DAILY #0 tabs 09/18/22 10/11/22 Rx tablet docusate sodium 100 mg capsule 100 mg PO TID PRN PRN #0 caps 09/18/22 10/11/22 Rx (Colace) prazosin 2 mg capsule (Minipress) 6 mg PO QPM #0 caps 09/18/22 10/11/22 Rx isosorbide mononitrate 30 mg 30 mg PO DAILY 10/11/22 10/11/22 History tablet,extended release 24 hr Exam Const General: cooperative and no acute distress HENMT Head: atraumatic Mouth: moist mucous membranes Cardio Rate: regular rate and not tachycardic Rhythm: regular rhythm Back/Spine/Pelvis Cervical Spine: cervical ROM normal, No cervical spinal tenderness and No step off deformity Thoracic/Lumbar Spine: No thoracic spinal tenderness and No lumbar spinal tenderness Neuro General: patient alert, patient awake and tone normal Extrem Right lower extremity: lower leg Details: no tenderness, ankle Details: tenderness Location: of the lateral malleolus and of the medial malleolus and foot Details: normal to inspection, toes with normal ROM, vascular exam Details: dorsalis pedis pulse present and motor-sensory exam Details: light-touch normal; no tenderness Results Labs 09/16/22 13:50 09/16/22 13:50 Labs: Laboratory Results - last 24 hr 09/16/22 09/16/22 09/16/22 13:50 13:50 13:50 WBC 14.23 H RBC 4.19 Hgb 13.0 Hct 40.8 MCV 97 H MCH 31.0 MCHC 31.9 L RDW 14.2 Plt Count 235 MPV 9.4 Immature Gran % 0.4 Neutrophils % 83.3 Lymphocytes % 9.7 Monocytes % 5.6 Eosinophils % 0.5 Basophils % 0.5 Nucleated RBC % 0.0 Absolute Neutrophils 11.85 H Absolute Lymphocytes 1.38 Absolute Monocytes 0.80 Absolute Eosinophils 0.07 Absolute Basophils 0.07 Sodium 140 Potassium 5.1 Chloride 104 Carbon Dioxide 30.3 Anion Gap 5.7 BUN 22 H Creatinine 0.8 Est GFR (CKD-EPI 2020) 83.26 Glucose 99 Calcium 10.0 Urine Color Urine Clarity Urine pH Ur Specific Perryman Urine Protein Urine Ketones Urine Blood Urine Nitrite Urine Bilirubin Urine Urobilinogen Ur Leukocyte Esterase Urine RBC Urine WBC Ur Epithelial Cells Urine Crystals Urine Bacteria Urine Casts Urine Mucus Ur Culture Indicated? Urine Glucose COVID-19 Source Nasal/Nares SARS-CoV-2 (PCR) Negative 09/16/22 16:28 WBC RBC Hgb Hct MCV MCH MCHC RDW Plt Count MPV Immature Gran % Neutrophils % Lymphocytes % Monocytes % Eosinophils % Basophils % Nucleated RBC % Absolute Neutrophils Absolute Lymphocytes Absolute Monocytes Absolute Eosinophils Absolute Basophils Sodium Potassium Chloride Carbon Dioxide Anion Gap BUN Creatinine Est GFR (CKD-EPI 2020) Glucose Calcium Urine Color Yellow Urine Clarity Sl Cloudy Urine pH 6.0 Ur Specific Perryman 1.020 Urine Protein Negative Urine Ketones Negative Urine Blood Negative Urine Nitrite Negative Urine Bilirubin Negative Urine Urobilinogen 0.2 Ur Leukocyte Esterase Moderate H Urine RBC 0-2 Urine WBC 10-20 H Ur Epithelial Cells Few Urine Crystals Negative Urine Bacteria Moderate Urine Casts Negative Urine Mucus Negative Ur Culture Indicated? Yes Urine Glucose Negative COVID-19 Source SARS-CoV-2 (PCR) Last Vital Signs Temp 36.9 C 09/16/22 15:45 Pulse 59 L 09/16/22 15:45 Resp 20 09/16/22 15:45 BP 150/79 H 09/16/22 15:45 Pulse Ox 93 09/16/22 15:45 Time Spent Time spent with Patient: 40-54 minutes Time was spent: preparing to see the patient(eg.review tests), obtaining and/or reviewing separately otained hiistory, ordering medications,tests, procedures, referring, communicating with other health progressive care unit registered nurse, indepentently interpreting results and counseling the patient
[2022-09-16] MEDS: Ketorolac 30 MG/ML VIAL IVP (17:54)
[2022-09-16] MEDS: Nicotine 14 MG/24 HR PATCH TD (17:55)
[2022-09-16] MEDS: Lactated Ringers 1,000 ML 125 ML IV (18:54)
[2022-09-16 19:25] VITALS: BP 146/76; PULSE 64; RESP 18; TEMP 36.2; O2SAT 97
[2022-09-16] MEDS: traZODone 50 MG TAB PO (20:23)
[2022-09-16] MEDS: Acetaminophen 500 MG TAB 1000 MG PO (20:23)
[2022-09-16] MEDS: Lactobacillus Acidophilus CAP 1 CAP PO (20:23)
[2022-09-16] MEDS: Prazosin 2 MG CAP PO (20:23)
[2022-09-16] MEDS: clonazePAM 0.5 MG TAB PO (20:23)
[2022-09-16] MEDS: Budesonide/Formoterol 160/4.5 6 GM 60 PUFF INH IH (20:24)
[2022-09-16] MEDS: Tiotropium Bromide-Respimat 10 PUFF INH 2 PUFF IH (20:24)
--- NOTE | 2022-09-16 21:17 | TELEP.MEDR_ITS ---
Date of service: 09/16/22 Time of Service: 21:17 Telepharmacy Home Med Rec Allergies Allergies: sumatriptan [From Imitrex] Allergy (Unverified 09/16/22 11:44) Interview Person Interviewed: * facility MAR Quality Quality of Interview/Accuracy of Medication List: Excellent Sources Sources used to compile medication list: [facility]book Medication List and MAR Changes made to Home Medication List: ADDITIONS: * Vitamin C 1000mg PO daily * cannabis 1 capsule PO daily DELETIONS: * none CHANGES: * calcium 200mg PO BID (increased from 200mg PO daily) * Prazosin 6mg PO QPM (changed from 2mg PO QPM) * Vitamin D 75mcg (3000 units) PO HS (changed from 250mcg Po daily) Recommended Changes Attestation: The home medication list is now updated to the best of my knowledge and is ready to be reconciled by the provider. Please contact the TelePharmacy Medication Reconciliation Pharmacist at for any questions.
--- NOTE | 2022-09-16 21:17 | TELEP.MEDREC ---
Date of service: 09/16/22 Time of Service: 21:17 Telepharmacy Home Med Rec Allergies Allergies: sumatriptan [From Imitrex] Allergy (Unverified 09/16/22 11:44) Interview Person Interviewed: facility MAR Quality Quality of Interview/Accuracy of Medication List: Excellent Sources Sources used to compile medication list: [facility] Medication List and MAR Changes made to Home Medication List: ADDITIONS: Vitamin C 1000mg PO daily cannabis 1 capsule PO daily DELETIONS: none CHANGES: calcium 200mg PO BID (increased from 200mg PO daily) Prazosin 6mg PO QPM (changed from 2mg PO QPM) Vitamin D 75mcg (3000 units) PO HS (changed from 250mcg Po daily) Recommended Changes Attestation: The home medication list is now updated to the best of my knowledge and is ready to be reconciled by the provider. Please contact the TelePharmacy Medication Reconciliation Pharmacist at for any questions.
[2022-09-16 23:20] VITALS: BP 109/58; PULSE 62; RESP 18; TEMP 36.3; O2SAT 92
[2022-09-17] VITALS (16 sets, daily range): BP systolic 101–134; BP diastolic 46–83; PULSE 53–63; RESP 14–19; TEMP 36.2–37.3; O2SAT 91–97; BMI 42.7
--- NOTE | 2022-09-17 | DI.CT_ITS ---
Exam(s) CT LOWER EXTREMITY LT WO EXAM: CT LOWER EXTREMITY LT WO CLINICAL HISTORY: ?nondisplaced distal tibia fracture. TECHNIQUE: Imaging Protocol: Axial computed tomography images with coronal and sagittal reformatted images were created and reviewed. COMPARISON: CR,XR XR TIB/FIB LT from 09/17/2022 FINDINGS: Bones: There is a fracture of the neck of the proximal fibula which shows very mild displacement. T here is also a nondisplaced fracture involving the base of the medial malleolus. There is a nondispl aced fracture also seen at the lateral aspect of the tibial plafond. Bony alignment is satisfactory. No cellulitic or osteomyelitic changes are identified. There is no evidence of joint space narrowi ng or cystic degeneration seen. No lytic or sclerotic lesions are identified. Soft Tissues: There is soft tissue swelling of the leg. IMPRESSION: 1. Acute minimally displaced fracture of the proximal fibular neck. 2. Nondisplaced fracture involving the base of the medial malleolus. 3. Nondisplaced fracture involving the lateral aspect of the tibial plafond. 4. Soft tissue swelling of the leg. RADIATION DOSE DELIVERED: 418.18mGy.cm Total DLP 418.18mGy.cm Total DLP DATA REPOSITORY: All CT scans at this facility are submitted to the National Radiology Data Registry (NRDR) Dose Index Registry (DIR) with the [employer] ([employer]). RADIATION OPTIMIZATION: All CT scans at this facility use at least one of these dose optimization te chniques: automated exposure control; mA and/or kV adjustment per patient size (includes targeted exa ms where dose is matched to clinical indication); or iterative reconstruction.
--- NOTE | 2022-09-17 | DI.RAD_ITS ---
Exam(s) XR TIB/FIB LT XR ANKLE LT COMPLETE XR FOOT LT LIMITED EXAM: XR TIB/FIB LT, XR foot LT limited and XR ankle LT complete CLINICAL HISTORY: left leg pain. TECHNIQUE: 2D digital imaging was performed of the left tibia and fibula. Eight images were obtained . AP, oblique and lateral views were obtained. COMPARISON: None. FINDINGS: BONES: There is an acute nondisplaced fracture at the proximal metadiaphyseal junction of the left fi bula. There is a nondisplaced fracture of the base of the medial malleolus. No bony destructive les ion is seen. Visualized portion of the knee is unremarkable. SOFT TISSUE: Soft tissue swelling is seen in the lower leg, foot and ankle. IMPRESSION: 1. Nondisplaced fracture of the base of the medial malleolus. 2. Nondisplaced fracture at the proximal metadiaphyseal junction of the left fibula. 3. Soft tissue swelling of the leg and foot. DATA REPOSITORY: RADIATION DOSE DELIVERED:
--- NOTE | 2022-09-17 | DI.RAD_ITS ---
Exam(s) XR KNEE RT 2V AP,LAT EXAM: XR KNEE RT 2V AP,LAT INDICATION: s/p R tib-fib fracture, hemarthrosis. COMPARISON: XR TIB/FIB RT from 09/17/2022 CR XR TIB/FIB RT from 09/17/2022 TECHNIQUE: 2D digital imaging was performed. Two views. FINDINGS: Intramedullary conchita has been placed in the tibia. Skin artie are noted. There is a mildly displace d fracture of the proximal fibula. The knee is unremarkable. DATA REPOSITORY: RADIATION DOSE DELIVERED:
--- NOTE | 2022-09-17 | DI.RAD_ITS ---
Exam(s) XR TIB/FIB RT EXAM: XR TIB/FIB RT INDICATION: s/p IMN of R tib-fib frx. COMPARISON: XR TIB/FIB RT from 09/17/2022 TECHNIQUE: 2D digital imaging was performed. Two views. FINDINGS: An intramedullary conchita has been placed through the tibia for fixation of the distal tibial fracture. The alignment is satisfactory. Proximal fibular fracture mildly displaced, unchanged.. Skin staple s and splint in place. DATA REPOSITORY: RADIATION DOSE DELIVERED:
[2022-09-17] MEDS: Lactated Ringers 1,000 ML 125 ML IV ×3 (03:07→15:53)
[2022-09-17] MEDS: Normal Saline Flush 10 ML SYR IVP ×3 (03:07→18:21)
[2022-09-17] MEDS: Levothyroxine 50 MCG TAB PO (05:52)
[2022-09-17 07:03] LABS: Abs Immature Grans 0.03 10^3/uL (0.0-0.06); Absolute Basophil Count 0.06 10^3/uL (0.0-0.2); Absolute Lymphocyte Count 1.37 10^3/uL (1.2-3.4); Absolute Monocyte Count 0.92 10^3/uL (0.1-0.8); Absolute Neutrophil Count 7.29 10^3/uL (1.2-6.7); Basophils % 0.6; HCT 35.7 % (36.0-46.0); HGB 11.7 g/dL (11.2-15.7); Immature Grans % 0.3; MCHC 32.8 % (32.0-36.0); MCV 98 fL (80-95); MPV 9.4 fL (8.0-11.0); Monocytes % 9.4; Neutrophils % 74.7; Platelet Count 205 10^3/uL (130-400); RBC 3.66 10^6/uL (3.93-5.22); RDW 14.2 % (11.7-14.6); RDW-SD 51.4 fL; WBC 9.77 10^3/uL (4.4-10.8)
[2022-09-17 07:18] LABS: Anion Gap 1.6 mmol/L (3-11); BUN 24 mg/dL (7-18); CO2 32.4 mmol/L (21.0-32.0); CREATININE 0.8 mg/dL (0.55-1.02); Calcium 8.8 mg/dL (8.5-10.1); Chloride 104 mmol/L (98-107); Estimated GFR 83.26 (mL/min/1.73m2); Glucose 88 mg/dL (74-106); Magnesium 1.9 mg/dL (1.8-2.4); Potassium 4.1 mmol/L (3.5-5.1); Sodium 138 mmol/L (136-145)
--- NOTE | 2022-09-17 08:34 | NUR.NOTE ---
Nursing Note: At approximately 0834 on 09/17/22, RN called the OR desk and asked to speak with one of the GENERATION ENGINEERING TECHNOLOGIST's regarding which medications they would like administered to the pt. prior to surgery. OR pathology secretary stated that all GENERATION ENGINEERING TECHNOLOGIST's were busy, that Hunter Garsia CRNA would be participating in the pt.'s surgery, and that she would have Hunter Garsia CRNA call up to Med/Surg when available.
[2022-09-17] MEDS: Budesonide/Formoterol 160/4.5 6 GM 60 PUFF INH IH ×2 (08:37→19:43)
--- NOTE | 2022-09-17 08:49 | INITIAL_ITS ---
- If Service Date Differs Date of service: 09/17/22 Time of Service: 08:49 Care Management Initial Assess REASON FOR HOSPITALIZATION:: Fracture of distal right tibia PAST MEDICAL HISTORY/PAST SURGICAL HISTORY:: Medical History. Asthma. CAD (coronary artery disease). Cervical stenosis of spinal canal. Chronic neck pain with history of cervical spinal surgery. Migraine. Prediabetes. Smoker. Surgical History (Updated 09/16/22 @ 18:49 by Luci Barbosa NP). Stented coronary artery PREVIOUS FUNCTIONAL STATUS/SOCIAL/FAMILY SUPPORTS:: Resides at [facility] for last four months, with her Brandon who has advanced dementia. Uses [facility] at baseline. CURRENT FUNCTIONAL STATUS:: NPO for OR today, 09/17/22. ADVANCE DIRECTIVES:: None on file. Has patient been provided with info about the portal/API?: No Did the patient sign up for the portal?: No CODE STATUS:: Full Code INSURANCE COVERAGE / FINANCIAL ISSUES:: Medicaid. Medicare CURRENT HOME/COMMUNITY SERVICES/EQUIPMENT:: [facility]: Level 3 Assisted Living PRIMARY CARE PHYSICIAN:: Jolly Davenport POTENTIAL DISCHARGE NEEDS:: Evaluations for further needs. PATIENT/FAMILY EDUCATION NEEDS:: Review discharge instructions, discuss Ask Me Three. ANTICIPATED BARRIERS TO DISCHARGE:: None identified. TRANSPORTATION:: Dependent on mobility and disposition. PLAN:: Jeannie will be brought to the OR today for a right tibia fracture fix. She will be evaluated post surgically for rehab needs, and is reportedly asking for a referral to be faxed to [facility]. This will be completed if recommended by PTMD once evaluations and documentation is available. CM continues to follow.
--- NOTE | 2022-09-17 08:52 | NUR.NOTE ---
Nursing Note: At approximately 0852 on 09/17/22, this RN answered a call from Hunter Garsia CRNA. Per TOPHER, pt. can take all of the medications scheduled for this morning with small sips of water to take them.
[2022-09-17] MEDS: Cholecalciferol (Vitamin D3) 1,000 UNIT TAB 5000 UNITS PO (09:13)
[2022-09-17] MEDS: Divalproex Sodium 250 MG TAB.ER.24H PO (09:13)
[2022-09-17] MEDS: lamoTRIgine 100 MG TAB 200 MG PO (09:14)
[2022-09-17] MEDS: Atorvastatin 40 MG TAB PO (09:14)
[2022-09-17] MEDS: FLUoxetine 20 MG CAP PO (09:14)
[2022-09-17] MEDS: Senna TAB 1 TAB PO (09:14)
[2022-09-17] MEDS: Famotidine 20 MG TAB PO (09:14)
[2022-09-17] MEDS: Ferrous Sulfate 325 MG TAB PO (09:14)
[2022-09-17] MEDS: Calcium Citrate 950 MG TAB PO (09:14)
[2022-09-17] MEDS: Cyanocobalamin 500 MCG TAB 1000 MCG PO (09:14)
[2022-09-17] MEDS: Isosorbide Mononitrate 30 MG TABCR PO (09:14)
[2022-09-17] MEDS: clonazePAM 0.5 MG TAB PO (09:14)
[2022-09-17] MEDS: Lactobacillus Acidophilus CAP 1 CAP PO ×2 (09:14→19:41)
[2022-09-17] MEDS: Magnesium Oxide 400 MG TAB PO (09:14)
[2022-09-17] MEDS: Omeprazole 20 MG CAPCR PO (09:14)
[2022-09-17] MEDS: Ketorolac 30 MG/ML VIAL IVP (09:15)
--- NOTE | 2022-09-17 10:44 | ANES.PREOP_ITS ---
General Info Date of Service Date Performed: 09/17/22 Height: 5 ft 2 in Weight: 106.1 kg Body Mass Index (BMI): 42.7 Surgical Procedure: Operation Date: 09/17/22 11:40 Proposed Procedure Side Surgeon p Tibial Rodding/IM Nailing Right Xander Box MD Meds Allergies and Home Medications Allergies Allergy/AdvReac Type Severity Reaction Status Date / Time sumatriptan [From Imitrex] Allergy Unverified 09/16/22 11:44 Home Medication Medication Instructions Recorded Lactobacillus rhamnosus GG 10 1 cap PO DAILY 09/16/22 billion cell capsule (Culturelle) acetaminophen 500 mg capsule 1,000 mg PO QHS PRN 09/16/22 albuterol 90 mcg/actuation aerosol 90 mcg inhalation Q6H PRN PRN 09/16/22 inhaler ascorbic acid (vitamin C) 1,000 mg 1,000 mg PO DAILY 09/16/22 tablet aspirin 81 mg chewable tablet 81 mg PO DAILY 09/16/22 atorvastatin 40 mg tablet 40 mg PO QPM 09/16/22 calcium citrate 200 mg PO BID 09/16/22 cannabidiol 100 mg/mL oral solution 100 mg PO DAILY 09/16/22 cholecalciferol (vitamin D3) 25 75 mcg PO HS 09/16/22 mcg (1,000 unit) tablet clonazepam 0.5 mg tablet (Klonopin) 0.5 mg PO QPM 09/16/22 cyanocobalamin (vitamin B-12) 1,000 mcg PO HS 09/16/22 1,000 mcg tablet (Vitamin B-12) divalproex 250 mg tablet,extended 250 mg PO QPM 09/16/22 release 24 hr famotidine 20 mg tablet (Pepcid) 20 mg PO DAILY 09/16/22 ferrous sulfate 325 mg (65 mg 325 mg PO DIRECTED 09/16/22 iron) tablet (FeroSul) fluoxetine 20 mg capsule 20 mg PO DAILY 09/16/22 fluticasone 500 mcg-salmeterol 50 1 inh inhalation BID 09/16/22 mcg/dose blistr powdr for inhalation (Advair Diskus) ibuprofen 800 mg tablet 800 mg PO Q8H PRN PRN 09/16/22 isosorbide mononitrate 30 mg 30 mg PO DAILY 09/16/22 tablet,extended release 24 hr lamotrigine 200 mg tablet 200 mg PO QPM 09/16/22 levothyroxine 50 mcg tablet 50 mcg PO DAILY 09/16/22 magnesium oxide 400 mg PO QPM 09/16/22 nicotine (polacrilex) 2 mg gum 2 mg buccal Q2H 09/16/22 nicotine 14 mg/24 hr daily 1 patch transdermal DAILY 09/16/22 transdermal patch nitroglycerin 0.4 mg sublingual 0.4 mg sublingual Q5M PRN 09/16/22 tablet omeprazole 20 mg capsule,delayed 20 mg PO DAILY PRN PRN 09/16/22 release phenyleph-shark liver 1 applic NM QID PRN PRN 09/16/22 dob-kbspzr-wly rectal cream polyethylene glycol 3350 17 gram 17 g PO DAILY 09/16/22 oral powder packet (Miralax) prazosin 2 mg capsule 6 mg PO QPM 09/16/22 sennosides 8.6 mg tablet (senna) 8.6 mg PO QPM 09/16/22 tiotropium bromide 2.5 2 puff inhalation QHS 09/16/22 mcg/actuation mist for inhalation (Spiriva Respimat) tizanidine 4 mg tablet 4 mg PO QHS PRN 09/16/22 trazodone 50 mg tablet 50 mg PO QHS PRN Insomnia 09/16/22 Current Visit Medications: Current Medications Generic Name Dose Route Start Last Admin Trade Name Freq PRN Reason Stop Dose Admin Acetaminophen 0 mg 09/16/22 14:10 Acetaminophen 325 Mg Tab PO Q4H PRN PRN Acetaminophen 1,000 mg 09/16/22 17:06 09/16/22 20:23 Acetaminophen 500 Mg Tab PO 1,000 mg HS PRN PRN Administration Acidophilus/Pectin 1 cap 09/16/22 20:00 09/17/22 09:14 Lactobacillus Acidophilus Cap PO 1 cap BID MARIA VICTORIA Administration Al Hydrox/Mg Hydrox/Simethicone 30 ml 09/16/22 14:10 Mylanta Suspension 30 Ml Cup PO Q2H PRN PRN Atorvastatin Calcium 40 mg 09/17/22 08:30 09/17/22 09:14 Atorvastatin 40 Mg Tab PO 40 mg DAILY MARIA VICTORIA Administration Budesonide/Formoterol Fumarate 2 puff 09/16/22 20:00 09/17/22 08:37 Budesonide/Formoterol 160/4.5 6 Gm 60 Puff Inh IH 2 puff BID MARIA VICTORIA Administration Calcium Citrate 950 mg 09/17/22 08:30 09/17/22 09:14 Calcium Citrate 950 Mg Tab PO 950 mg DAILY MARIA VICTORIA Administration Cholecalciferol 5,000 units 09/17/22 08:30 09/17/22 09:13 Cholecalciferol (Vitamin D3) 1,000 Unit Tab PO 5,000 units DAILY MARIA VICTORIA Administration Clonazepam 0.5 mg 09/16/22 14:17 09/16/22 20:23 Clonazepam 0.5 Mg Tab PO 0.5 mg BID PRN PRN Administration Anxiety Clonazepam 0.5 mg 09/17/22 08:30 09/17/22 09:14 Clonazepam 0.5 Mg Tab PO 0.5 mg QAM MARIA VICTORIA Administration Cyanocobalamin 1,000 mcg 09/17/22 08:30 09/17/22 09:14 Cyanocobalamin 500 Mcg Tab PO 1,000 mcg DAILY MARIA VICTORIA Administration Dextrose 0 gm 09/16/22 14:05 Glucose Oral Gel 15 Gm/37.5 Gm Tube PO DIRECTED PRN Dextrose/Water 0 gm 09/16/22 14:05 Dextrose 50%-Water 25 Gm/50 Ml Syr IVP DIRECTED PRN Divalproex Sodium 250 mg 09/17/22 08:30 09/17/22 09:13 Divalproex Sodium 250 Mg Tab.Er.24h PO 250 mg DAILY MARIA VICTORIA Administration Docusate Sodium 100 mg 09/16/22 14:10 Docusate Sodium 100 Mg Cap PO TID PRN PRN Famotidine 20 mg 09/17/22 08:30 09/17/22 09:14 Famotidine 20 Mg Tab PO 20 mg DAILY MARIA VICTORIA Administration Ferrous Sulfate 325 mg 09/17/22 08:30 09/17/22 09:14 Ferrous Sulfate 325 Mg Tab PO 325 mg DAILY MARIA VICTORIA Administration Fluoxetine HCl 20 mg 09/17/22 08:30 09/17/22 09:14 Fluoxetine 20 Mg Cap PO 20 mg DAILY MARIA VICTORIA Administration Hydromorphone HCl 1 - 2 mg 09/16/22 18:34 Hydromorphone 2 Mg/Ml Syr IVP Q3H PRN PRN Ringer's Solution 1,000 mls @ 125 mls/hr 09/16/22 18:15 09/17/22 10:31 IV 125 mls/hr INFUSION MARIA VICTORIA Administration IV Miscellaneous Supplies 1 each 09/16/22 13:15 Iv Access IV DIRECTED MARIA VICTORIA Isosorbide Mononitrate 30 mg 09/17/22 08:30 09/17/22 09:14 Isosorbide Mononitrate 30 Mg Tabcr PO 30 mg DAILY MARIA VICTORIA Administration Ketorolac Tromethamine 30 mg 09/16/22 17:37 09/17/22 09:15 Ketorolac 30 Mg/Ml Vial IVP 09/21/22 17:36 30 mg Q6H PRN PRN Administration Lamotrigine 200 mg 09/17/22 08:30 09/17/22 09:14 Lamotrigine 100 Mg Tab PO 200 mg DAILY MARIA VICTORIA Administration Levothyroxine Sodium 50 mcg 09/17/22 06:00 09/17/22 05:52 Levothyroxine 50 Mcg Tab PO 50 mcg DAILY@0600 MARIA VICTORIA Administration Magnesium Hydroxide 30 ml 09/16/22 14:10 Milk Of Magnesia 30 Ml Cup PO DAILY PRN PRN Magnesium Oxide 400 mg 09/17/22 08:30 09/17/22 09:14 Magnesium Oxide 400 Mg Tab PO 400 mg DAILY MARIA VICTORIA Administration Nicotine 14 mg 09/16/22 18:00 09/16/22 17:55 Nicotine 14 Mg/24 Hr Patch TD 14 mg Q24H MARIA VICTORIA Administration Omeprazole 20 mg 09/17/22 07:30 09/17/22 09:14 Omeprazole 20 Mg Capcr PO 20 mg DAILY@0730 MARIA VICTORIA Administration Ondansetron HCl 4 mg 09/16/22 14:42 Ondansetron 4 Mg/2 Ml Vial IVP Q4H PRN PRN Polyethylene Glycol 17 gm 09/16/22 14:10 Polyethylene Glycol 3350 17 Gm Packet PO DAILY PRN PRN Constipation Prazosin HCl 2 mg 09/16/22 20:00 09/16/22 20:23 Prazosin 2 Mg Cap PO 2 mg QPM MARIA VICTORIA Administration Sennosides 1 tab 09/17/22 08:30 09/17/22 09:14 Senna Tab PO 1 tab DAILY MARIA VICTORIA Administration Sodium Chloride 0 ml 09/16/22 13:13 09/17/22 09:15 Normal Saline Flush 10 Ml Syr IVP 20 ml PRN PRN Administration Tiotropium [place] 2 puff 09/16/22 22:00 09/16/22 20:24 Tiotropium [place]-Respimat 10 Puff Inh IH 2 puff HS MARIA VICTORIA Administration Trazodone HCl 50 mg 09/16/22 14:17 09/16/22 20:23 Trazodone 50 Mg Tab PO 50 mg HS PRN PRN Administration PFSH Active Problems Active Problems: Problem Status Onset Code DVT prophylaxis Z29.9 Discharge planning issues Z02.9 Closed right tibial fracture S82.201A Fall W19.XXXA Medical History Medical History Asthma CAD (coronary artery disease) Cervical stenosis of spinal canal Chronic neck pain with history of cervical spinal surgery Migraine Prediabetes Smoker Surgical History Surgical History Stented coronary artery Tobacco Smoking/Tobacco Use Status: Current every day Tobacco Type: cigarettes Alcohol Alcohol Intake: never Substance Use Substance use type: marijuana Vital Signs and Lab Results Vital Signs Most Recent Vital Signs in EMR: Most Recent Vital Signs Temp Pulse Resp BP Pulse Ox 37.3 C 57 L 16 124/67 92 09/17/22 07:45 09/17/22 07:45 09/17/22 07:45 09/17/22 07:45 09/17/22 07:45 Lab Results 09/17/22 06:25 09/17/22 06:25 Blood Type / Crossmatch: No Data to Display Complete Blood Count: White Blood Count 9.77 10^3/uL (4.4-10.8) 09/17/22 06:25 Red Blood Count 3.66 10^6/uL (3.93-5.22) L 09/17/22 06:25 Hemoglobin 11.7 g/dL (11.2-15.7) 09/17/22 06:25 Hematocrit 35.7 % (36.0-46.0) L 09/17/22 06:25 Platelet Count 205 10^3/uL (130-400) 09/17/22 06:25 Complete Metabolic Panel: Sodium 138 mmol/L (136-145) 09/17/22 06:25 Potassium 4.1 mmol/L (3.5-5.1) 09/17/22 06:25 Chloride 104 mmol/L (98-107) 09/17/22 06:25 Carbon Dioxide 32.4 mmol/L (21.0-32.0) H 09/17/22 06:25 BUN 24 mg/dL (7-18) H 09/17/22 06:25 Creatinine 0.8 mg/dL (0.55-1.02) 09/17/22 06:25 Est GFR (CKD-EPI 2020) 83.26 (mL/min/1.73m2) 09/17/22 06:25 Magnesium 1.9 mg/dL (1.8-2.4) 09/17/22 06:25 Calcium 8.8 mg/dL (8.5-10.1) 09/17/22 06:25 Albumin 3.8 g/dL (3.4-5.0) 09/09/22 07:35 Glucose 88 mg/dL (74-106) 09/17/22 06:25 Hemoglobin A1c 5.8 % (<5.7) H 09/09/22 07:35 Liver Function Panel: Alanine Aminotransferase (ALT/SGPT) 17 U/L (14-59) 09/09/22 07: 35 Aspartate Amino Transf (AST/SGOT) 11 U/L (15-37) L 09/09/22 07: 35 Coagulation Panel: No Data to Display Cardiac Panel: No Data to Display Arterial Blood Gas: No Data to Display Venous Blood Gas: No Data to Display Pancreas Panel: No Data to Display Thyroid Panel: Thyroid Stimulating Hormone (TSH) 1.80 uIU/mL (0.36-3.74) 09/09 07:35 Infectious Disease: Coronavirus (COVID-19)(PCR) Negative (Negative) 09/16/22 13:50 Coronavirus 2019 Source Nasal/Nares 09/16/22 13:50 Blood Cultures: No Data to Display Toxicology Panel: No Data to Display Imaging and Studies Imaging and Studies Study information below may be from another EMR and interpreted by another provider. Please see original notes in EMR for more complete details. EKG Summary: 09/16/22: sinus rhythm, low voltage. Echocardiogram Summary: 01/07/2021: ([facility] [place]): EF 65%, No hemodynamically significant valve disease Anesthesia Assessment and Plan Anesthesia History Personal History: No History of Anesthesia Complications Family History: No Family History of Anesthesia Complications Exercise Tolerance Exercise Tolerance: Metabolic Equivalents>4 Cardiac & Pulmonary Exam Cardiac Exam: Normal S1/S2 Heart Sounds Pulmonary Exam: Clear Bilateral Breath Sounds Implantable Cardiac Device Does patient have a Pacemaker or an ICD?: No Airway Exam Known Difficult Airway: No Mallampati Class: 3 Mouth Opening: Normal (> 3cm) Thyromental Distance: Greater than 3 cm Neck Range of Motion: Full ROM Neck Circumference: Thick Teeth Condition: Edentulous ASA Classification ASA Score: ASA 3 Emergency Case?: No NPO Status NPO Status: NPO Clears >2 hours, Solids >8 hours Anesthesia Plan Resuscitation Status: Full Code Anesthesia Technique: General Anesthesia Airway Planned: Endotracheal Tube Monitors Used: Standard Monitors Preoperative Comments:: 62 yo female with tib fib fracture. Sig PMHx: CAD, cervial spinal stenosis, migraine, preDM, smoker (tobacco and cannabis)
--- NOTE | 2022-09-17 11:04 | PGE_ITS ---
Date of Service Date of service: 09/17/22 Time of Service: 11:04 Assessment and Plan Assessment and plan (1) Closed right tibial fracture: Status: Deleted Assessment and plan: Ice, immobilize, elevate, IVF Seen by Ortho - other leg, left lower leg has a fx also that is non operable; splint/boot Ketorolac and hydromorphone for pain Post op day 1 She would like to go to [facility] for rehab, care mgrs have sent referrals (2) Fall: Status: Deleted Assessment and plan: Fx right lower leg; see above Fx left lower leg: see above (3) Chronic neck pain with history of cervical spinal surgery: Assessment and plan: Recent surgery at [facility] [place] for cervical spinal stenosis; stable (4) Smoker: Assessment and plan: Continues to smoke 5 cigarettes/day 60 pack years - she moved to the [facility] 4 months ago and has slowed down to 5/d (5) CAD (coronary artery disease): Assessment and plan: Stents x2 2006 @ [facility] [place] one vessel occluded 96%, the other 76% (6) Prediabetes: Assessment and plan: unknown A1C - will add on to ED labs (7) Asthma: Assessment and plan: Stable; continues to smoke (8) DVT prophylaxis: Status: Deleted Assessment and plan: Aspirin 81 mg BID (9) Discharge planning issues: Status: Deleted Assessment and plan: Would like to rehab at [facility] Discussed with Dr Saldaña and Dr Box Subjective Subjective Patient reports: no new complaints, pain is less, tolerating a regular diet and afebrile; denies flatus, diarrhea, vomiting or shortness of breath Exam Narrative Exam Narrative: Sitting up in hospital bed. No acute distress. Alert and oriented x3. Evaluation of the right lower extremity shows clean dry and intact dressings, some swelling, DP/PT palp and DRUM BARKER OPERATOR < 2 sec Evaluation of the left lower extremity shows no gross deformity, DP/PT palp and DRUM BARKER OPERATOR < 2 sec Const General: cooperative and no acute distress HENMT Head: atraumatic Mouth: moist mucous membranes Cardio Rate: regular rate and not tachycardic Rhythm: regular rhythm Back/Spine/Pelvis Cervical Spine: cervical ROM normal, No cervical spinal tenderness and No step off deformity Thoracic/Lumbar Spine: No thoracic spinal tenderness and No lumbar spinal tenderness Neuro General: patient alert, patient awake and tone normal Extrem Right lower extremity: lower leg Details: no tenderness, ankle Details: tenderness Location: of the lateral malleolus and of the medial malleolus and foot Details: normal to inspection, toes with normal ROM, vascular exam Details: dorsalis pedis pulse present and motor-sensory exam Details: light-touch normal; no tenderness Psych Mental Status: mental status grossly normal Speech and Movement: speech and movement normal Mood: congruent mood Affect: normal affect Objective Last Vital Signs Temp 37.3 C 09/17/22 07:45 Pulse 57 L 09/17/22 07:45 Resp 16 09/17/22 07:45 BP 124/67 09/17/22 07:45 Pulse Ox 92 09/17/22 07:45 Laboratory Results - last 24 hr 09/16/22 09/16/22 09/16/22 13:50 13:50 13:50 WBC 14.23 H RBC 4.19 Hgb 13.0 Hct 40.8 MCV 97 H MCH 31.0 MCHC 31.9 L RDW 14.2 Plt Count 235 MPV 9.4 Immature Gran % 0.4 Neutrophils % 83.3 Lymphocytes % 9.7 Monocytes % 5.6 Eosinophils % 0.5 Basophils % 0.5 Nucleated RBC % 0.0 Absolute Neutrophils 11.85 H Absolute Lymphocytes 1.38 Absolute Monocytes 0.80 Absolute Eosinophils 0.07 Absolute Basophils 0.07 Sodium 140 Potassium 5.1 Chloride 104 Carbon Dioxide 30.3 Anion Gap 5.7 BUN 22 H Creatinine 0.8 Est GFR (CKD-EPI 2020) 83.26 Glucose 99 Calcium 10.0 Magnesium Urine Color Urine Clarity Urine pH Ur Specific [place] Urine Protein Urine Ketones Urine Blood Urine Nitrite Urine Bilirubin Urine Urobilinogen Ur Leukocyte Esterase Urine RBC Urine WBC Ur Epithelial Cells Urine Crystals Urine Bacteria Urine Casts Urine Mucus Ur Culture Indicated? Urine Glucose COVID-19 Source Nasal/Nares SARS-CoV-2 (PCR) Negative 09/16/22 09/17/22 09/17/22 16:28 06:25 06:25 WBC 9.77 RBC 3.66 L Hgb 11.7 Hct 35.7 L MCV 98 H MCH 32.0 MCHC 32.8 RDW 14.2 Plt Count 205 MPV 9.4 Immature Gran % 0.3 Neutrophils % 74.7 Lymphocytes % 14.0 Monocytes % 9.4 Eosinophils % 1.0 Basophils % 0.6 Nucleated RBC % 0.0 Absolute Neutrophils 7.29 H Absolute Lymphocytes 1.37 Absolute Monocytes 0.92 H Absolute Eosinophils 0.10 Absolute Basophils 0.06 Sodium 138 Potassium 4.1 D Chloride 104 Carbon Dioxide 32.4 H Anion Gap 1.6 L BUN 24 H Creatinine 0.8 Est GFR (CKD-EPI 2020) 83.26 Glucose 88 Calcium 8.8 Magnesium 1.9 Urine Color Yellow Urine Clarity Sl Cloudy Urine pH 6.0 Ur Specific [place] 1.020 Urine Protein Negative Urine Ketones Negative Urine Blood Negative Urine Nitrite Negative Urine Bilirubin Negative Urine Urobilinogen 0.2 Ur Leukocyte Esterase Moderate H Urine RBC 0-2 Urine WBC 10-20 H Ur Epithelial Cells Few Urine Crystals Negative Urine Bacteria Moderate Urine Casts Negative Urine Mucus Negative Ur Culture Indicated? Yes Urine Glucose Negative COVID-19 Source SARS-CoV-2 (PCR) Time Spent with Patient Time Spent with Patient: 25-34 minutes Time was spent: preparing to see the patient(eg.review tests), ordering medications,tests, procedures, referring, communicating with other health client care consultant, indepentently interpreting results and counseling the patient
--- NOTE | 2022-09-17 13:15 | W.PM.PROGNOT ---
Date of Service Date of service: 09/17/22 Time of Service: 13:15 Assessment and Plan Assessment and plan (1) Closed right tibial fracture: Status: Acute Assessment and plan: Jeannie is a 62-year-old who has a distal tibia fracture which is notably displaced. Given the fracture location and its displacement I recommend operative fixation. I discussed the case with with Jeannie. I also called her sister, Kyra Mittal, her power of contract attorney. I discussed the case with Kyra at length. I reviewed the risk of the procedure to include bleeding, infection, pain, stiffness, damage nerves and vessels, damage to muscle and tendons, hardware prominence, heart failure, malunion, nonunion, loss of reduction, blood clot, cardiopulmonary complication, need for repeat procedures. Despite these risk, Jeannie and her sister, Kyra, agreed to proceed. Subjective Subjective Interval history since last seen: Jeannie denies any significant change from yesterday. She has some pain but has been controlled with the splint. She denies any new numbness or tingling. No new symptoms. She denies any chest pain or shortness of breath. She has been evaluated by the medicine service and has been cleared for surgery today. She is NPO. Objective Last Vital Signs Temp 37.3 C 09/17/22 11:10 Pulse 61 09/17/22 11:10 Resp 16 09/17/22 11:10 BP 106/62 09/17/22 11:10 Pulse Ox 93 09/17/22 11:10 Laboratory Results - last 24 hr 09/16/22 09/16/22 09/16/22 13:50 13:50 13:50 WBC 14.23 H RBC 4.19 Hgb 13.0 Hct 40.8 MCV 97 H MCH 31.0 MCHC 31.9 L RDW 14.2 Plt Count 235 MPV 9.4 Immature Gran % 0.4 Neutrophils % 83.3 Lymphocytes % 9.7 Monocytes % 5.6 Eosinophils % 0.5 Basophils % 0.5 Nucleated RBC % 0.0 Absolute Neutrophils 11.85 H Absolute Lymphocytes 1.38 Absolute Monocytes 0.80 Absolute Eosinophils 0.07 Absolute Basophils 0.07 Sodium 140 Potassium 5.1 Chloride 104 Carbon Dioxide 30.3 Anion Gap 5.7 BUN 22 H Creatinine 0.8 Est GFR (CKD-EPI 2020) 83.26 Glucose 99 Calcium 10.0 Magnesium Urine Color Urine Clarity Urine pH Ur Specific [place] Urine Protein Urine Ketones Urine Blood Urine Nitrite Urine Bilirubin Urine Urobilinogen Ur Leukocyte Esterase Urine RBC Urine WBC Ur Epithelial Cells Urine Crystals Urine Bacteria Urine Casts Urine Mucus Ur Culture Indicated? Urine Glucose COVID-19 Source Nasal/Nares SARS-CoV-2 (PCR) Negative 09/16/22 09/17/22 09/17/22 16:28 06:25 06:25 WBC 9.77 RBC 3.66 L Hgb 11.7 Hct 35.7 L MCV 98 H MCH 32.0 MCHC 32.8 RDW 14.2 Plt Count 205 MPV 9.4 Immature Gran % 0.3 Neutrophils % 74.7 Lymphocytes % 14.0 Monocytes % 9.4 Eosinophils % 1.0 Basophils % 0.6 Nucleated RBC % 0.0 Absolute Neutrophils 7.29 H Absolute Lymphocytes 1.37 Absolute Monocytes 0.92 H Absolute Eosinophils 0.10 Absolute Basophils 0.06 Sodium 138 Potassium 4.1 D Chloride 104 Carbon Dioxide 32.4 H Anion Gap 1.6 L BUN 24 H Creatinine 0.8 Est GFR (CKD-EPI 2020) 83.26 Glucose 88 Calcium 8.8 Magnesium 1.9 Urine Color Yellow Urine Clarity Sl Cloudy Urine pH 6.0 Ur Specific [place] 1.020 Urine Protein Negative Urine Ketones Negative Urine Blood Negative Urine Nitrite Negative Urine Bilirubin Negative Urine Urobilinogen 0.2 Ur Leukocyte Esterase Moderate H Urine RBC 0-2 Urine WBC 10-20 H Ur Epithelial Cells Few Urine Crystals Negative Urine Bacteria Moderate Urine Casts Negative Urine Mucus Negative Ur Culture Indicated? Yes Urine Glucose Negative COVID-19 Source SARS-CoV-2 (PCR) Time Spent with Patient Time Spent with Patient: <25 minutes Time was spent: counseling the patient and care coordination
[2022-09-17] MEDS: ceFAZolin 2 GM/50 ML BAG 100 GM (13:45)
--- NOTE | 2022-09-17 14:02 | CHAPLAIN ---
Jeannie was waiting to go to surgery this morning when I visited. She and her live at [facility]. Her has dementia so Jeannie is quite worried about him and would like to get back to as soon as possible. While I was there, an CELLULAR BIOLOGIST brought in the phone so Jeannie could talk with her . I didn't stay after that.
--- NOTE | 2022-09-17 14:53 | DI.RAD_ITS ---
Exam(s) XR TIB/FIB RT EXAM: XR TIB/FIB RT CLINICAL HISTORY: right tibia and fibula fracture. TECHNIQUE: 2D and realtime digital imaging was performed. COMPARISON: CR XR ANKLE RT COMPLETE from 09/16/[address] LOWER EXTREMITY RT WO from 09/16/2022 FINDINGS: Hard copy images show placement of an intramedullary conchita through the tibia for fracture fixation. Th e alignment is improved. Proximal fibular fracture also noted. Please see procedure note for details. Fluoro time: 148.1seconds RADIATION DOSE DELIVERED: whitney Tanner=5.36 mGy
--- NOTE | 2022-09-17 16:01 | ROE_ITS ---
Date of service: 09/17/22 Time of Service: 15:15 Operative Note Operative Note DATE OF PROCEDURE: 09/17/22 PRE-OP DIAGNOSIS: Right Tibia and Fibula Fracture POST-OP DIAGNOSIS: same Right Knee Hemarthrosis PROCEDURE: Right Intramedullary Fixation of Tibia Fracture SURGEON: Xander Box BOWLING FLOOR MANAGER: Nilam Connelly ANESTHESIA TYPE: General LMA/ETT Refer to Anesthesia Record ESTIMATED BLOOD LOSS: 100 PATHOLOGY: none sent COMPLICATIONS: None Patient was transported to: PACU Patient's condition: stable Implants: Depuy-Synthes Tibial Nail Advanced 12mm x 315mm Indications: Jeannie who presented to the Emergency Department after a fall. X-rays confirmed the diagnosis of a oblique fracture of the right distal tibia. I reviewed the possible treatment options and given the fracture, I recommended operative fixation. I discussed the technical details of the surgery. I reviewed the risks such as bleeding, infection, pain, stiffness, malunion, nonunion, hardware prominence, hardware faiilure, malrotation, damage to nerves and vessels, blood clot. Despite these risks, she and her sister, Kyra (DPSHANEL), agreed to proceed. Findings: There was a fracture of the tibia which was reduced with traction and internal rotation and external manipulation, held with a clamp. This was secured with the IMN and screws. There was a hemarthrosis encountered. The knee was inspected with fluoroscopy and showed no signs of fracture. Procedure Description: Jeannie was greeted in the preoperative area. Consent was previously reviewed and signed. Once in the operating room, general anesthesia was administered. The patient was transferred to the fracture table in the supine position. She was positioned in the supine position with the operative side placed onto a bone foam ramp. All bony prominences were well padded. Arms were placed out to the side, padded, and secured. A single dose of TXA, 1 gram, was then administered IV. Prophylactic antibioti cs, Cefazolin 2 grams, was given for prophylactic antibiotics. A timeout was performed for safe surgery. The right leg was prepped with Chloraprep. The leg was draped with a stockinette and U drapes. An incision was then made over the lateral aspect of the knee. This was taken down from the midpoint of patella at his lateral margin following the lateral aspect of the patellar tendon down to the tibial tubercle. The skin was incised sharply. The retinacular tissues were then incised sharply as well. The synovium underlying this was visualized and bluntly dissected off of the anterior, proximal tibia. The patella was mobilized medially allowing access to the central portion of the proximal tibia. A starting position in line with the axis of the tibia, approximate the level of the lateral spine, and at the ventral edge of the proximal tibia was made with the awl. X-ray in both the AP and lateral views were used to confirm this positioning. The awl was then advanced manually into the proximal tibia. This was once again confirmed to be in good position on the AP and lateral views. The ball-tipped guidewire was then inserted through the awl and into the proximal tibia. A bend in the guidewire was placed prior to insertion allowing it to make the turn off the back of the tibia. At this point there was noted to be a small defect of the synovium with blood. This defect was enlarged and there was a large hemarthrosis which was evacuated. This was unexpected. Therefore, brought in the C arm to fully investigate the distal femur and the knee itself. No fracture was identified. Reduction maneuver was then performed of the fracture. Gentle traction and some internal rotation was used to grossly reduce the fracture fragments. Focus was made sure to restore normal rotational alignment of the leg in length. A clamp was used to help secure and hold these pieces in appropriate position. This appeared to be nearly anatomic on the AP view as well as the lateral view. The bone was quite soft and therefore I did not want to over tighten the clamp. The ball-tipped guidewire was then advanced across the fracture site into the distal tibia. It was confirmed to be in appropriate positions on both the AP and the lateral. This was then measured. Using a tissue protector to protect proximal tissues, the tibia was reamed from 8.5 mm to 13.5mm. The 12mm x 315mm Synthes tibial nail advanced was opened. The nail was assembled to the aiming arm on the back table and confirmed to be aligned with the trochars for screw insertion. Using manual force the nail was advanced into the tibia. A few light mallet blows advanced the nail through the proximal tibia and down into the final seated position of the distal tibia, approximately at the level of the physeal scar. AP and lateral x-rays of both the knee and the ankle and the entire tibia was performed. They show appropriate positioning of the tibial nail. Starting distally, perfect circles were obtained for each screw. Distal locking screws were placed in the 3 distal holes. These were inserted to be bicortical but prominence was attempted to be minimized as much as possible without compromisi ng stability and screw purchase. The bone was fairly soft and the oblique, most distal hole, was noted to have some screw head insertion into the bone due to the poor quality of the bone cortex. Attention was then turned to the proximal aspect. Through the targeting arm, two 5.0 millimeter screws were placed. One was placed in the dynamic hole and the other was placed in the static hole. These were placed without difficulty and once again were ensured to be bicortical. The targeting device was removed. AP and lateral x-rays of were taken of the tibia and fibula. The fracture site is once again investigated and showed to be well aligned as was the overall alignment of the leg. The deep tissues and superficial tissues of the leg and the incision sites were injected with a mixture of 50 cc of ropivacaine, epinephrine, clonidine, and ketorolac. The wounds were thoroughly irrigated. The retinaculum of the knee was reapproximated with a running #1 Vicryl. The deep tissue was closed with a 2-0 Vicryl followed by artie. The smaller wounds for screw placement were closed with Vicryl and artie in a similar fashion. The wounds were dressed with Xeroform, 4 x 4's, ABD, web roll. A short posterior leg splint was applied. At the end of the case, all counts were correct. Jeannie tolerated the procedure well without known complication and was taken to the PACU for recovery. Physical therapy will start post-operatively, touchdown weightbearing for the first 2 weeks with assistive devices. Anticoagulation will start within 12-24 hours. 3 doses of post-operative antibiotics for prophylaxis will be administered.
--- NOTE | 2022-09-17 16:39 | W.ANESPOSTOP ---
Postoperative Evaluation Date, Time and Location Date Performed: 09/17/22 Time Performed: 16:39 Patient Location: PACU Vital Signs Most Recent Imported Vital Signs: Most Recent Vital Signs Temp Pulse Resp BP Pulse Ox 36.2 C L 56 L 16 103/68 95 09/17/22 16:30 09/17/22 16:30 09/17/22 16:30 09/17/22 16:30 09/17/22 16:30 Pain Score Most Recent Pain Score: Most Recent Pain Score Pain Level [Right Ankle] 6 09/16/22 11:45 Pain Level 0 09/17/22 16:30 Assessment Mental Status: Awake (Alert & Oriented to Patient Baseline) Airway and Respiratory Function: Patent airway with normal (patient baseline) respiratory exam Cardiovascular Function: Hemodynamically Stable Hydration Status: Adequately Hydrated Nausea & Vomiting: No Nausea or Vomiting Pain: Pain is tolerable per patient Peripheral Nerve Block: Patient did not receive a nerve block
--- NOTE | 2022-09-17 16:55 | PT.INIE ---
Date of service: 09/17/22 Time of Service: 16:30 PT Notes Visit Reasons: Fracture of the Distal Right Tibia Inpatient Physical Therapy Evaluation Date: 09/17/22 Referring Doctor: Xander Box MD PT Orders: PT CONSULT: S/P ortho surgery, S/P IMN fixation of R tibia, TDWB Precautions: TDWB R LE Patient Profile/Admitting Diagnosis: This is a 62-year-old female patient with past medical? history of? presented to the [facility] ED after a mechanical fall from standing while using her walker, with injury to her right ankle.?Status post IMN fixation of right tibia 09/17/2022, orders of touchdown weightbearing right LE. PMHX: All Active Problems?(Updated 09/16/22 @ 18:56 by Luci Barbosa NP) DVT prophylaxis (Acute) Discharge planning issues (Acute) Closed right tibial fracture (Acute) Fall (Acute) Medical History Asthma CAD (coronary artery disease) Cervical stenosis of spinal canal Chronic neck pain with history of cervical spinal surgery Migraine Prediabetes Smoker Surgical History?(Updated 09/16/22 @ 18:49 by Luci Barbosa NP) Stented coronary artery Social History/Home Situation: Resident at [facility] in [facility]. Elevators in the building, she does not have to utilize stairs. Current Functional Limitations: Touchdown weightbearing right LE with RW, requires max assist for bed mobility and mod assist sit to stand. C/o left LE pain, making standing difficult Equipment Owned/DME: RW Subjective: C/o pain left LE in addition to right LE. She feels she strained her left leg during her fall as well. Pain level 5/10 right knee region, increasing to 7/10 post attempt of transfer. Objective: General Observation: Right lower extremity cast, Hernandez, IV, O2 via nasal cannula 1 L, lying in hospital bed. Mental Status: Alert and oriented to person, place, and time Pain: 5/10 pretransfer, 7/10 post transfer Vital Signs: Stable per nursing notes ROM: Right Upper Extremity: WNL Left Upper Extremity: WNL Right Lower Extremity: Not assessed Left Lower Extremity: WNL Strength: Right Upper Extremity: Grossly 4/5 Left Upper Extremity: Grossly 4/5 Right Lower Extremity: Not assessed, demonstrating active movement of toes Left Lower Extremity: Grossly 4/5, exception of left ankle inversion limited to 3+/5, and 4 -/5 all other planes Sensation: WNL Bed Mobility/Transfers: Bed mobility max assist x2 Attempt of sit to stand to RW mod assist x2, had to abort due to patient inability to not put weight through right LE, due to left LE pain. Gait: Unable Balance: Static Sitting: Fair Dynamic Sitting: Poor Static Standing: Poor Dynamic Standing: Unable to assess Special Tests: Mobility Limitations Standardized Measure [facility] AM-PAC 6 clicks Basic Mobility Inpatient Short Form: 92% disability Informed Consent/Education: Patient instructed in purpose of PT consult and plan of care. Assessment: Patient is a 62 year old female referred to physical therapy services status post right tibial IMN fixation of right tibia, 09/17/2022, touchdown weightbearing. Patient presents with clinical signs and symptoms consistent with postop condition, in addition to left lower extremity pain due to possible strain or injury at time of fall, limiting her tolerance to transfer attempt. Evaluation of left ankle reveals pain with range of motion and weakness with internal rotation, lateral ankle swelling. This may be worth further evaluation to determine potential for aggravation and safety with attempt of transfers, and need for further stabilization or bracing etc of L LE. Patient requires max assist with bed mobility moderate assist for sit to stand, requiring PT services to improve her functional ability and transfer ability in hopes of returning to [facility]. Current functional performance suggesting need for SNF rehab. Patient is assessed as a Moderate 50851 complexity based on the following: History: See comorbidities Examination: Poor right LE mobility and strength, intolerant to left lower extremity weightbearing, touchdown weightbearing right LE Presentation: Evolving Decision Making: Moderate Goals: Goals X1 week 1. Supine-Sit independent 2. Sit-Supine independent 3. Sit-Stand contact-guard 4. Stand-Sit contact-guard 5. Bed-Chair min assist x1 RW 6. Chair-Bed min assist x1 RW 7. Gait 10 feet, touchdown weightbearing right LE, CG x1, RW Plan of Care/Treatment Plan: 1-2x/day, 7 days/week x 1 week. Plan of care has been reviewed with the ELEMENTARY EDUCATOR providing the service under Physical Therapy direction. Initiate Physical Therapy intervention for strengthening, bed mobility, transfers, gait, stairs, balance training, use of assistive device. DISCHARGE RECOMMENDATIONS: SNF for continued rehabilitation TREATMENT CODE/TIME: 30 minutes, [id number]
[2022-09-17] MEDS: ceFAZolin 1 GM/50 ML BAG IVPB (17:49)
[2022-09-17] MEDS: Nicotine 14 MG/24 HR PATCH TD (17:51)
[2022-09-17] MEDS: Ketorolac 15 MG/ML VIAL IVP (18:20)
[2022-09-17] MEDS: Prazosin 2 MG CAP PO (19:41)
[2022-09-17] MEDS: Docusate Sodium 100 MG CAP PO (19:41)
[2022-09-17] MEDS: Polyethylene Glycol 3350 17 GM PACKET PO (19:42)
--- NOTE | 2022-09-17 20:51 | DI.VRAD_ITS ---
PROCEDURE INFORMATION: Exam: XR Left Ankle Exam date and time: 09/17/2022 8:23 PM Age: 62 years old Clinical indication: Pain; Ankle; Left TECHNIQUE: Imaging protocol: Radiologic exam of the left ankle. Views: 3 or more views. COMPARISON: CR XR TIB/FIB LT 09/17/2022 8:21 PM FINDINGS: Bones/joints: Mild fracture at the base of the medial malleolus. This is an oblique fracture which is nondisplaced. No fibular fracture is evident. Talar dome is unremarkable. Ankle mortise is intact. Soft tissues: Nonspecific soft tissue swelling. No gas. No foreign body. IMPRESSION: 1. Nondisplaced fracture at the base of the medial malleolus. 2. Soft tissue swelling. Dictated and Authenticated by: Ken Lamar MD. Ordering:COREY Terrell MD
--- NOTE | 2022-09-17 20:52 | DI.VRAD_ITS ---
PROCEDURE INFORMATION: Exam: XR Left Tibia and Fibula Exam date and time: 09/17/2022 8:21 PM Age: 62 years old Clinical indication: Pain; Lower leg; Left TECHNIQUE: Imaging protocol: Radiologic exam of the left tibia and fibula. Views: 2 views. COMPARISON: No relevant prior studies available. FINDINGS: Bones/joints: There is a proximal fracture of the fibula. This is an oblique fracture of the fibular neck. Best appreciated on the lateral view. Nondisplaced. Proximal tibia is unremarkable. Distal tibia remarkable for nondisplaced fracture of the base of the medial malleolus. Soft tissues: Soft tissue swelling. No gas or foreign body. IMPRESSION: 1. Fibular neck oblique nondisplaced fracture. 2. Medial malleolus nondisplaced fracture. 3. Soft tissue swelling. Dictated and Authenticated by: Ken Lamar MD. Ordering:COREY Terrell MD
--- NOTE | 2022-09-17 20:53 | DI.VRAD_ITS ---
PROCEDURE INFORMATION: Exam: XR Left Foot Exam date and time: 09/17/2022 8:28 PM Age: 62 years old Clinical indication: Pain; Foot; Left TECHNIQUE: Imaging protocol: Radiologic exam of the left foot. Views: 1 or 2 views. COMPARISON: CR XR ANKLE LT COMPLETE 09/17/2022 8:23 PM FINDINGS: Bones/joints: Forefoot and midfoot structures without acute fracture or dislocation. Soft tissues: Soft tissue swelling over the dorsum of the foot. This is nonspecific. IMPRESSION: 1. Soft tissue swelling over the dorsum of the foot. No gas or foreign body. 2. No foot fracture or dislocation. Dictated and Authenticated by: Ken Lamar MD. Ordering:COREY Terrell MD
--- NOTE | 2022-09-17 22:10 | DI.VRAD_ITS ---
PROCEDURE INFORMATION: Exam: CT Left Lower Extremity Without Contrast; Lower Leg Exam date and time: 09/17/2022 9:44 PM Age: 62 years old Clinical indication: Pain; Lower leg; Left TECHNIQUE: Imaging protocol: CT of the left lower extremity without contrast was performed. Exam focused on the lower leg. Radiation optimization: All CT scans at this facility use at least one of these dose optimization techniques: automated exposure control; mA and/or kV adjustment per patient size (includes targeted exams where dose is matched to clinical indication); or iterative reconstruction. COMPARISON: CR XR TIB/FIB LT 09/17/2022 8:21 PM FINDINGS: Bones/joints: Mild nondisplaced fracture of the base of the medial malleolus. This extends to the medial aspect the tibial plafond. There is also a mild fracture of the lateral tibial plafond without displacement. See series 2, image 210. A proximal oblique fibular neck fracture is noted with minor displacement. Axial series 2, images 66-90. Soft tissues: Soft tissue swelling. No foreign body or soft tissue gas. IMPRESSION: 1. Proximal fibular neck fracture with mild displacement. 2. Nondisplaced fracture the tibial medial malleolus. There is also a mild fracture of the lateral aspect of the tibial plafond. No significant displacement. No articular step-off. 3. Soft tissue swelling. Dictated and Authenticated by: Ken Lamar MD. Ordering:COREY Terrell MD
--- NOTE | 2022-09-17 22:22 | W.PM.PROGNOT ---
Date of Service Date of service: 09/17/22 Time of Service: 19:10 Assessment and Plan Assessment and plan (1) Closed fracture of left distal tibia: Status: Acute Assessment and plan: Partial weightbearing with a fracture walker boot. Given the injury to her right side this will make her transfers only. This will need to be followed closely to ensure there is no displacement. (2) Fracture of left proximal fibula: Status: Acute Assessment and plan: Concerning for Maisonneuve variant which is an unstable injury about the ankle. However, there is no incongruity seen on CT scan therefore a trial of weightbearing and transferring is reasonable to start. (3) Fracture of right tibia and fibula: Status: Acute Assessment and plan: Status post intramedullary nail fixation of the right tibia. Protected weightbearing on the right lower extremity. Given the newly discovered injury to the left side I will plan to transition her to a fracture walker boot on the right side, hopefully to allow for ease of transfers. May resume anticoagulation this evening or in the morning. Continue physical therapy. Complete 3 doses of postoperative Ancef. Will likely require group home facility discharge or acute level rehab given bilateral lower extremity fractures. Subjective Subjective Interval history since last seen: Jeannie reports be doing well for her right leg after surgery. She tried to mobilize physical therapy and found that putting weight on the right leg was actually minimally painful. However, she had significant pain with weightbearing on the left side. She has not reported much left leg pain until she tried to mobilize today. She says feels like a sprain. She reports pain over the medial aspect of the ankle and the medial aspect of the foot as well as towards the knee slightly more lateral than medial but more diffuse. No hip or groin pain. She denies numbness or tingling. Exam Extrem Other: Evaluation of the right leg shows a dressing which is clean dry and intact. She is able to actively dorsiflex and plantarflex the right foot. She endorses sensation over the deep and superficial peroneal nerve and tibial nerve. No significant pain with passive or active range of motion of the toes nor the knee. Evaluation of the left leg shows no overlying skin changes. There is no ecchymosis. There is no significant swelling. There is no abrasions or lacerations. There is some tenderness palpation over the medial aspect of the foot and the medial aspect of the ankle. This ankle pain is quite significant. She does have some pain with palpation laterally although it is worse medially. Active range of motion is limited and passive range of motion does recreate some pain. Manipulation of the leg is tolerable although she does have some pains at the endpoints of motion. There is pain to palpation about the proximal leg, worse laterally than medially. No knee instability, stable to varus and valgus stress. No quadriceps defect, able to straight leg raise. However, active motion seem to recreate some of the ankle and foot pain. Objective Last Vital Signs Temp 36.5 C 09/17/22 22:47 Pulse 56 L 09/17/22 22:47 Resp 16 09/17/22 22:47 BP 104/53 L 09/17/22 22:47 Pulse Ox 97 09/17/22 23:50 Laboratory Results - last 24 hr 09/17/22 06:25 Sodium 138 Potassium 4.1 D Chloride 104 Carbon Dioxide 32.4 H Anion Gap 1.6 L BUN 24 H Creatinine 0.8 Est GFR (CKD-EPI 2020) 83.26 Glucose 88 Calcium 8.8 Magnesium 1.9 Objective Narrative Objective Narrative: X-ray of the left foot, ankle, tibia and fibula shows a proximal fibula fracture as well as a nondisplaced medial malleolus fracture. Given these fracture patterns I ordered a CT scan. CT scan of the left ankle and leg demonstrates is nondisplaced fracture of the medial malleolus there is no displacement of the articular segment. There is no displacement of the talus or incongruity of the tibiotalar joint. Time Spent with Patient Time Spent with Patient: 35-49 minutes Time was spent: obtaining and/or reviewing separately otained hiistory, ordering medications,tests, procedures, referring, communicating with other health memory care program director and indepentently interpreting results
[2022-09-17] MEDS: Acetaminophen 325 MG TAB PO (22:35)
[2022-09-17] MEDS: traZODone 50 MG TAB PO (22:36)
[2022-09-17] MEDS: Tiotropium Bromide-Respimat 10 PUFF INH 2 PUFF IH (22:38)
[2022-09-18] MEDS: Lactated Ringers 1,000 ML 125 ML IV (01:31)
[2022-09-18] MEDS: ceFAZolin 1 GM/50 ML BAG IVPB ×2 (01:45→09:22)
[2022-09-18] MEDS: HYDROmorphone 2 MG/ML SYR IVP ×3 (02:06→14:34)
[2022-09-18] MEDS: Levothyroxine 50 MCG TAB PO (05:58)
[2022-09-18 07:45] LABS: Abs Immature Grans 0.06 10^3/uL (0.0-0.06); Absolute Basophil Count 0.03 10^3/uL (0.0-0.2); Absolute Eosinophil Count 0.01 10^3/uL (0.0-0.7); Absolute Lymphocyte Count 1.02 10^3/uL (1.2-3.4); Absolute Monocyte Count 1.02 10^3/uL (0.1-0.8); Basophils % 0.2; Eosinophils % 0.1; HCT 31.2 % (36.0-46.0); HGB 9.8 g/dL (11.2-15.7); Immature Grans % 0.5; Lymphocytes % 7.9; MCH 30.7 pg (27.0-33.0); MCHC 31.4 % (32.0-36.0); MCV 98 fL (80-95); MPV 9.5 fL (8.0-11.0); Monocytes % 7.9; Neutrophils % 83.4; Platelet Count 181 10^3/uL (130-400); RBC 3.19 10^6/uL (3.93-5.22); RDW 13.7 % (11.7-14.6); RDW-SD 49.4 fL; WBC 12.97 10^3/uL (4.4-10.8)
[2022-09-18 07:56] LABS: Absolute Neutrophil Count 10.82 10^3/uL (1.2-6.7); Anion Gap 0.5 mmol/L (3-11); BUN 25 mg/dL (7-18); CO2 33.5 mmol/L (21.0-32.0); CREATININE 0.7 mg/dL (0.55-1.02); Calcium 8.8 mg/dL (8.5-10.1); Chloride 104 mmol/L (98-107); Estimated GFR 97.72 (mL/min/1.73m2); Glucose 127 mg/dL (74-106); Magnesium 2.1 mg/dL (1.8-2.4); Potassium 4.6 mmol/L (3.5-5.1); Sodium 138 mmol/L (136-145)
[2022-09-18 08:30] VITALS: BP 118/53; PULSE 53; RESP 16; TEMP 36.9; O2SAT 99
[2022-09-18 08:33] VITALS: O2SAT 99
[2022-09-18] MEDS: Senna TAB 1 TAB PO (08:35)
[2022-09-18] MEDS: Lactobacillus Acidophilus CAP 1 CAP PO (08:35)
[2022-09-18] MEDS: Cyanocobalamin 500 MCG TAB 1000 MCG PO (08:35)
[2022-09-18] MEDS: Cholecalciferol (Vitamin D3) 1,000 UNIT TAB 5000 UNITS PO (08:36)
[2022-09-18] MEDS: Calcium Citrate 950 MG TAB PO (08:36)
[2022-09-18] MEDS: Ferrous Sulfate 325 MG TAB PO (08:36)
[2022-09-18] MEDS: Famotidine 20 MG TAB PO (08:37)
[2022-09-18] MEDS: Atorvastatin 40 MG TAB PO (08:37)
[2022-09-18] MEDS: FLUoxetine 20 MG CAP PO (08:39)
[2022-09-18] MEDS: lamoTRIgine 100 MG TAB 200 MG PO (08:39)
[2022-09-18] MEDS: Divalproex Sodium 250 MG TAB.ER.24H PO (08:40)
[2022-09-18] MEDS: clonazePAM 0.5 MG TAB PO (08:41)
[2022-09-18] MEDS: Budesonide/Formoterol 160/4.5 6 GM 60 PUFF INH IH (08:54)
[2022-09-18] MEDS: Normal Saline Flush 10 ML SYR IVP ×2 (09:22→14:34)
[2022-09-18] MEDS: Ketorolac 15 MG/ML VIAL IVP (09:23)
--- NOTE | 2022-09-18 10:28 | W.PM.PROGNOT ---
Date of Service Date of service: 09/18/22 Time of Service: 09:15 Assessment and Plan Assessment and plan (1) Closed fracture of left distal tibia: Status: Acute Assessment and plan: Nondisplaced fracture of the medial malleolus. Questionable fracture of the very far lateral aspect of the distal tibia. Not a true plafond injury but likely an ankle type injury from rotation. Concern for potential Maisonneuve type variant. We will treat nonoperatively in a boot. She was placed into a boot today. Protected weightbearing on the left lower extremity in the boot. She may remove the boot while in the bed. (2) Fracture of left proximal fibula: Status: Acute Assessment and plan: We will follow with serial ankle x-rays. (3) Fracture of right tibia and fibula: Status: Acute Assessment and plan: Postop day #1 status post intramedullary nail fixation of a complex distal tibia fracture. This is notably complicated given his low position on the tibia and also her poor bone quality. He was able to tolerate some weightbearing on this yesterday. Given the new diagnosis of a fracture of the left side I did remove the splint and the dressings and have a boot which she can go into. However, this is going to be challenging given the contracture of her right leg. I think a portion of this is related to her previous spinal cord issues with myelopathy status post decompression last year. She was very spastic even in the operating room. I think is imperative to work on try to get the foot to a more neutral position. Resumption of muscle relaxation may be necessary. She has used tizanidine at home. I discussed this with the medical team. I also reviewed this with the physical therapist will work on transfers. She may place her weight on the right leg although protected weightbearing is usually all that can be expected. I recommend use of the boot for transfers but if unable to tolerate the boot we may place her back into the splint. The splint was left in the room as well. Mepilex dressings may be left in place. However, if they get saturated they can be changed. Arash to be removed between 2 and 3 weeks postoperatively. We will likely need rehabilitation on discharge either acute or penitentiary facility level. May resume DVT prophylaxis today. Continue with multimodal pain treatment. Subjective Subjective Interval history since last seen: Jeannie reports having some increasing pain about the right leg overnight. She continues have some pain about the left leg. I did see her last night with concern about her left leg. X-rays and CT scan did show a nondisplaced fracture of the medial malleolus, questionable through the lateral aspect of the distal tibia and then with a proximal fibula fracture. She denies any chest pain or shortness of breath. She denies any new numbness or tingling. Exam Narrative Exam Narrative: Sitting up in hospital bed. No acute distress. Alert and oriented x3. Evaluation of the right lower extremity shows clean dry and intact dressings. I did remove the dressings on the right leg which did show sanguinous discharge on the deeper levels. Mepilex silver dressings were applied to the wounds in anticipation of placing the right leg into a boot. There was some swelling but the thigh and the calf is compressible. However, she had notable contracture of the posterior chain with the knee in some flexion and the foot and some plantarflexion. The posterior calf was quite tight with almost spastic characteristics of the gastrocsoleus complex. However, with some passive work I was able to get the foot to almost neutral dorsiflexion although this did cause some pain within the distal leg. Evaluation of the left lower extremity shows no gross deformity. Once again there is pain to palpation about the ankle, worse medially than laterally. There is also pain within the leg, worse laterally than medially and some generalized pain with palpation about the knee itself. Gentle passive range of motion of the knee did not seem to increase pain with manipulation of the leg did. Passive and active range of motion of the left ankle causes pain. Sensation intact to light touch over the deep and superficial peroneal nerve and tibial nerve. Objective Last Vital Signs Temp 36.5 C 09/17/22 22:47 Pulse 56 L 09/17/22 22:47 Resp 16 09/17/22 22:47 BP 104/53 L 09/17/22 22:47 Pulse Ox 99 09/18/22 08:33 Laboratory Results - last 24 hr 09/18/22 09/18/22 07:15 07:15 WBC 12.97 H RBC 3.19 L Hgb 9.8 L Hct 31.2 L MCV 98 H MCH 30.7 MCHC 31.4 L RDW 13.7 Plt Count 181 MPV 9.5 Immature Gran % 0.5 Neutrophils % 83.4 Lymphocytes % 7.9 Monocytes % 7.9 Eosinophils % 0.1 Basophils % 0.2 Nucleated RBC % 0.0 Absolute Neutrophils 10.82 H Absolute Lymphocytes 1.02 L Absolute Monocytes 1.02 H Absolute Eosinophils 0.01 Absolute Basophils 0.03 Sodium 138 Potassium 4.6 Chloride 104 Carbon Dioxide 33.5 H Anion Gap 0.5 L BUN 25 H Creatinine 0.7 Est GFR (CKD-EPI 2020) 97.72 Glucose 127 H Calcium 8.8 Magnesium 2.1 Time Spent with Patient Time Spent with Patient: 25-34 minutes Time was spent: preparing to see the patient(eg.review tests), obtaining and/or reviewing separately otained hiistory, ordering medications,tests, procedures, referring, communicating with other health personal care aide and counseling the patient
[2022-09-18 11:12] VITALS: BP 103/64; PULSE 64; RESP 16; TEMP 36.4; O2SAT 94
--- NOTE | 2022-09-18 11:35 | PT.INTREAT ---
PT Notes Visit Reasons: Fracture of the Distal Right Tibia Inpatient Physical Therapy Treatment Note [facility] Date:09/18/22 SUBJECTIVE: Jeannie states that she is feeling a little better as her pain meds have kicked in. She reports significant improvement in pain on left since being in boot. OBJECTIVE: [] BED MOBILITY/TRANSFERS Supine-sit: min assist with LE Sit-stand: CGA Stand-sit: CGA Bed-Chair: CGA GAIT Assistive Device:FWW Weight bearing: WBAT in B CAM boot Assist: SBA Distance: 3-4 steps Deviation: cues for proper gait sequencing ASSESSMENT: tolerated session quite well. Was able to get her into CAM boot on right after I provided some light stretching of gastroc. PLAN: continue to progress strength and functional mobility to tolerance. TREATMENT CODE/TIME: 25 min [id number]
[2022-09-18 11:50] VITALS: O2SAT 100
[2022-09-18 15:03] VITALS: BP 107/64; PULSE 65; RESP 19; TEMP 36.7; O2SAT 98
--- NOTE | 2022-09-18 15:28 | W.PM.DS.N ---
Date of service: 09/18/22 Time of Service: 15:28 DS: Diagnosis Discharge Diagnosis (1) Closed fracture of left distal tibia: Status: Acute Asessment and Plan: Splint/boot - non-displaced - no surgery Going to [facility] for rehab (2) Fracture of right tibia and fibula: Status: Acute Asessment and Plan: Surgically repaired, no bleeding, dressing dry intact Going to [facility] for rehab Discharge Plan Disposition Patient Disposition: Group Home Facility(SNF) Condition: Fair Condition: Improving Discharge Details Reason For Visit: Fracture of the Distal Right Tibia Admit Date/Time: 09/16/22 14:05 Admit Provider: Yannick Saldaña Attending Provider: Yannick Saldaña Primary Care Provider: Jolly Davenport [facility] Hospital Course: This is a 62-year-old female patient who lives at the [facility].? She was mobilizing to the bathroom with a walker, when she tripped and fell.? When she went down she had a twisting injury to her right leg and had immediate deformity and pain.? She was brought to the [facility] emergency department and diagnosed with a right tibia and fibula fracture.? She does have a longstanding history of cardiovascular disease as well as seizure disorder.? She had neck surgery in October 2021 for cervical neck spinal stenosis. She reports all of her chronic medical problems have been stable.? She denied any modification to her health in the last few years.? She has been living at [facility] for about four months.? She uses a walker for all mobilization.? She denied any numbness or tingling.? She denied any issues with the injured right leg prior to the fall. She was seen by orthopedic surgery. This fracture was displaced and orthopedics recommended proceeding with operative fixation.? Orthopedics discussed patient?s right leg being repaired likely with an intramedullary nail.? Patient agreed to proceed with surgery.? She went to surgery and had an uneventful repair.? On reexamination, and her first time up with physical therapy, she complained of a lot of pain to her left lower leg which she did not have prior to the fall, suspect the pain of the left lower leg was masked by the pain of her right leg fractures and once repaired and stable, she was able to localize pain to the left lower leg.? A plain film was completed and she was found to have a non displaced fracture of her left tibia.? This is not an operable fracture.? The orthopedic surgeon recommended she place her weight on the right leg although protected weightbearing is usually all that can be expected.? Orthopedic surgeon recommended use of the boot for transfers but if unable to tolerate the boot we may place her back into the splint - sent with her to the rehab facility.? Mepilex dressings may be left in place.? However, if they get saturated they can be changed.? Arash to be removed between 2 and 3 weeks postoperatively.? DVT prophalaxis started today, Aspirin 81 mg BID; 09/18/2022.?She was receiving ketorelac and dilaudid IV for pain, with good pain control. Continue with oral multimodal pain treatment. She was discharged stable via EMS to [facility] in [facility], this was the patient's preferable facility. Discussed with Dr Glass. Home Meds and New Rx's Prescriptions: New clonazepam 0.5 mg Tablet 0.5 mg PO BID PRN PRN (Reason: Anxiety) Qty: 0 0RF tizanidine 4 mg Tablet 4 mg PO BID Qty: 0 0RF prazosin [Minipress] 2 mg Capsule 6 mg PO QPM Qty: 0 0RF oxycodone 5 mg Tablet 5 mg PO Q4H PRN PRNQty: 0 0RF calcium citrate 200 mg (950 mg) Tablet 950 mg PO DAILY Qty: 0 0RF docusate sodium [Colace] 100 mg Capsule 100 mg PO TID PRN PRNQty: 0 0RF Continued atorvastatin 40 mg Tablet 40 mg PO QPM ferrous sulfate [FeroSul] 325 mg (65 mg iron) tablet 325 mg PO DIRECTED Rx Instructions: 3 times weekly divalproex 250 mg Tablet Extended Release 24 Hr 250 mg PO QPM sennosides [senna] 8.6 mg Tablet 8.6 mg PO QPM lamotrigine 200 mg Tablet 200 mg PO QPM nicotine 14 mg/24 hr Patch 24 Hour 1 patch TRANSDERMAL DAILY trazodone 50 mg Tablet 50 mg PO QHS PRN (Reason: Insomnia) polyethylene glycol 3350 [Miralax] 17 gram Powder In Packet 17 g PO DAILY ibuprofen 800 mg Tablet 800 mg PO Q8H PRN PRN tizanidine 4 mg Tablet 4 mg PO QHS PRN clonazepam [Klonopin] 0.5 mg Tablet 0.5 mg PO QPM cyanocobalamin (vitamin B-12) [Vitamin B-12] 1,000 mcg Tablet 1,000 mcg PO HS famotidine [Pepcid] 20 mg tablet 20 mg PO DAILY Patient Comments: Take 1 tablet by mouth once a day as needed levothyroxine 50 mcg Tablet 50 mcg PO DAILY fluticasone propion-salmeterol [Advair Diskus] 500-50 mcg/dose Blister With Device 1 inh INHALATION BID nitroglycerin 0.4 mg Tablet, Sublingual 0.4 mg SUBLINGUAL Q5M PRN Rx Instructions: do not exceed 3 doses per episode omeprazole 20 mg Capsule,Delayed Release(Dr/Ec) 20 mg PO DAILY PRN PRN fluoxetine 20 mg Capsule 20 mg PO DAILY acetaminophen 500 mg Capsule 1,000 mg PO QHS PRN prazosin 2 mg Capsule 6 mg PO QPM calcium citrate 250 mg calcium Tablet 200 mg PO BID Spiriva Respimat 2.5 mcg/actuation Mist 2 puff INHALATION QHS magnesium oxide 400 mg magnesium Tablet 400 mg PO QPM ascorbic acid (vitamin C) 1,000 mg Tablet 1,000 mg PO DAILY nicotine (polacrilex) 2 mg Gum 2 mg BUCCAL Q2H albuterol 90 mcg/actuation Aerosol 90 mcg INHALATION Q6H PRN PRN Culturelle 10 billion cell Capsule 1 cap PO DAILY phenyleph-shark [id number]-[id number] Cream 1 applic WV QID PRN PRN cholecalciferol (vitamin D3) 25 mcg (1,000 unit) Tablet 75 mcg PO HS cannabidiol 100 mg/mL Solution 100 mg PO DAILY Rx Instructions: 1 capsule THC cannabis daily Changed aspirin 81 mg Tablet,Chewable 81 mg PO BID Qty: 0 0RF Discontinued isosorbide mononitrate 30 mg Tablet Extended Release 24 Hr 30 mg PO DAILY Discharge Instructions Instructions: Ankle Fracture (DC) Stand Alone Forms: Nursing Discharge Form Referrals: Xander Box MD [ [facility] STAFF PHYSICIAN] - (Please call Tuesday to make her an Appointment with the Surgical Team [phone]) Activity:: per rehab facility Equipment/Supplies:: Walker Diet:: Low Sodium Discharge Orders Discharge Orders: Discharge Order (Routine); Ordered 09/18/22 Ordered By: Luci Barbosa Discharge Data Discharge Date/Time-TO BE ENTERED AT DEPARTURE: 09/18/22 15:44 DS: Summary Time Spent with Patient providing and/or coordinating discharge services: Greater than 30 minutes Status at Discharge Functional status at discharge: wheelchair bound Overall status at discharge: patient is not back to baseline Mental Status: mental status grossly normal Speech and Movement: speech and movement normal Mood: congruent mood Affect: normal affect Exam Narrative Exam Narrative: Sitting up in hospital bed. No acute distress. Alert and oriented x3. Evaluation of the right lower extremity shows clean dry and intact dressings, some swelling, DP/PT palp and [facility] < 2 sec Evaluation of the left lower extremity shows no gross deformity, DP/PT palp and [facility] < 2 sec Const General: cooperative and no acute distress HENMT Head: atraumatic Mouth: moist mucous membranes Cardio Rate: regular rate and not tachycardic Rhythm: regular rhythm Back/Spine/Pelvis Cervical Spine: cervical ROM normal, No cervical spinal tenderness and No step off deformity Thoracic/Lumbar Spine: No thoracic spinal tenderness and No lumbar spinal tenderness Neuro General: patient alert, patient awake and tone normal Extrem Right lower extremity: lower leg Details: no tenderness, ankle Details: tenderness Location: of the lateral malleolus and of the medial malleolus and foot Details: normal to inspection, toes with normal ROM, vascular exam Details: dorsalis pedis pulse present and motor-sensory exam Details: light-touch normal; no tenderness Psych Mental Status: mental status grossly normal Speech and Movement: speech and movement normal Mood: congruent mood Affect: normal affect DS: Data Vitals/I&O Vitals and I&O: Vital Signs Temperature 36.4 C L 09/18/22 11:12 Temperature Source Tympanic 09/18/22 11:12 Pulse 64 09/18/22 11:12 Pulse Rhythm Regular 09/18/22 12:13 Respiratory Rate 16 09/18/22 11:12 Respiratory Effort Normal 09/18/22 12:13 Respiratory Depth Normal 09/18/22 12:13 Respiratory Pattern Normal 09/18/22 12:13 Blood Pressure 103/64 09/18/22 11:12 Blood Pressure Mean 89 09/16/22 13:05 Pulse Oximetry 100 09/18/22 11:50 Respiratory End-tidal CO2 39 09/17/22 15:50 Oxygen Delivery Method Nasal Cannula 09/18/22 11:50 Oxygen Flow Rate 3 09/18/22 11:12 Pain Level 9 09/18/22 14:34 Comment decreased to 2LNC 09/18/22 11:50 Intake & Output 09/17/22 09/18/22 09/18/22 23:59 11:59 23:59 Intake Total 2410.00 / 4355.00 1100 / 1220 120 / 1220 Output Total 850 / 1550 400 / 400 Balance 1560.00 / 2805.00 700 / 820 120 / 820 Intake: IV 1970.00 / 3915.00 1100 / 1100 Oral 440 / 440 120 / 120 Output: Urine 750 / 1450 400 / 400 Estimated Blood Loss 100 / 100 Other: Urine Color Light Karen Yellow Urine Appearance Clear Cloudy Clear Emesis Description None Data Completed and Pending Labs on day of discharge: Labs from last 24 hours 09/18/22 09/18/22 07:15 07:15 WBC 12.97 H RBC 3.19 L Hgb 9.8 L Hct 31.2 L MCV 98 H MCH 30.7 MCHC 31.4 L RDW 13.7 Plt Count 181 MPV 9.5 Immature Gran % 0.5 Neutrophils % 83.4 Lymphocytes % 7.9 Monocytes % 7.9 Eosinophils % 0.1 Basophils % 0.2 Nucleated RBC % 0.0 Absolute Neutrophils 10.82 H Absolute Lymphocytes 1.02 L Absolute Monocytes 1.02 H Absolute Eosinophils 0.01 Absolute Basophils 0.03 Sodium 138 Potassium 4.6 Chloride 104 Carbon Dioxide 33.5 H Anion Gap 0.5 L BUN 25 H Creatinine 0.7 Est GFR (CKD-EPI 2020) 97.72 Glucose 127 H Calcium 8.8 Magnesium 2.1 PFSH All Active Problems (Updated 09/18/22 @ 07:27 by Xander Box MD) Fracture of right tibia and fibula (Acute) Fracture of left proximal fibula (Acute) Closed fracture of left distal tibia (Acute) DVT prophylaxis (Acute) Discharge planning issues (Acute) Fall (Acute) Medical History Asthma CAD (coronary artery disease) Cervical stenosis of spinal canal Chronic neck pain with history of cervical spinal surgery Migraine Prediabetes Smoker Surgical History Stented coronary artery Social History Smoking/Tobacco Use Status: Current every day Tobacco Type: cigarettes Smoking risk assessment performed?: Yes Alcohol Intake: never Substance use type: marijuana Do you feel safe at home: Yes Do you feel safe in your relationship?: Yes Time Spent with Patient Time Spent with Patient: 45-69 minutes Time was spent: preparing to see the patient(eg.review tests), obtaining and/or reviewing separately otained hiistory, ordering medications,tests, procedures, referring, communicating with other health lawn care specialist, indepentently interpreting results, counseling the patient and care coordination
[2022-09-18] MEDS: Aspirin 81 MG CHEW PO (15:29)
--- NOTE | 2022-09-18 16:31 | PDOC.CMDIS ---
- If Service Date Differs Date of service: 09/18/22 Time of Service: 16:31 LACE Index Scoring Tool - Questions: Length of Stay (in days): 2 Acuity (Admit via E.D.?): Yes E.D. Visits: 2 - Answers: Total Score: 7 Risk of Readmission: Low Risk Care Management Discharge Reason for Hospitalization: Fracture of distal right tibia Discharge Plan: Jeannie is discharged to [facility] for short term rehab. She will follow up with her PCP, surgeon and plan of care as instructed. She is transported to the rehab center via EMS. Patient/Family Education Needs: Nursing staff review discharge instructions including medications, limitations and follow up plan of care and discuss Ask Me Three.
--- NOTE | 2022-09-21 15:05 | INDS_ITS ---
PT Notes Visit Reasons: Fracture of the Distal Right Tibia Inpatient Physical Therapy Discharge Summary Date: 09/21/22 Dates of Service: 09/17/22 through 09/18/22 Referring Doctor:? Xander Box MD PT Orders: PT CONSULT: S/P ortho surgery, S/P IMN fixation of R tibia, TDWB Precautions: TDWB R LE This is a clinical summary of care provided for the duration of dates listed above. No charge was made in the completion of this documentation. Patient Profile/Admitting Diagnosis:?This is a 62-year-old female patient who presented to the [facility] ED after a mechanical fall from standing while using her walker, with injury to her right ankle.?Status post IMN fixation of right tibia 09/17/2022, orders of touchdown weightbearing right LE.? Assessment: Patient discharged by attending physician and transferred to [facility] for short term rehab. Due to requiring bilateral CAM boots, walking is limited. Goals: Goals X1 week 1. Supine-Sit independent - Min A with LEs 2. Sit-Supine independent - - Min A with LEs 3. Sit-Stand contact-guard - Met 4. Stand-Sit contact-guard - Met 5. Bed-Chair min assist x1 RW - Met, CGA 6. Chair-Bed min assist x1 RW - Met, CGA 7. Gait 10 feet, touchdown weightbearing right LE, CG x1, RW - Not met TREATMENT CODE/TIME: No charge Thank you for the opportunity to participate in the care of this patient.
== END 2022-09-18 15:44 | disposition skilled nursing facility (03) ==
LOC: ER 14:25 → MS 15:19
PROVIDERS: Nurse Practitioner Family; Student in an Organized Health Care Education/Training Program; Admitting Provider Family Medicine; Emergency Provider Student in an Organized Health Care Education/Training Program; PCP Nurse Practitioner Family; Visit Provider Family Medicine
PROC: (CPT 27759; principal; 2022-09-17 11:30)
DX: S82.201A Unspecified fracture of shaft of right tibia, initial encounter for closed fracture (principal); S82.832A Other fracture of upper and lower end of left fibula, initial encounter for closed fracture; S82.875A Nondisplaced pilon fracture of left tibia, initial encounter for closed fracture; Z20.822 Contact with and (suspected) exposure to COVID-19; W01.0XXA Fall on same level from slipping, tripping and stumbling without subsequent striking against object, initial encounter; I25.10 Atherosclerotic heart disease of native coronary artery without angina pectoris; J45.909 Unspecified asthma, uncomplicated; M48.02 Spinal stenosis, cervical region; G43.909 Migraine, unspecified, not intractable, without status migrainosus; R73.03 Prediabetes; Z95.5 Presence of coronary angioplasty implant and graft; F17.210 Nicotine dependence, cigarettes, uncomplicated; F12.90 Cannabis use, unspecified, uncomplicated; G89.29 Other chronic pain; Z79.899 Other long term (current) drug therapy
CPT/HCPCS: 27759; 29515; 36415; 80048; 87635; 93005; 94640; 96361; 96365; 96372; 96375; 96376; 97162; 97530; 99223; 99231; 99285; 71046; 73560; 73590; 73610; 73620; 73700; 81003; 81015; 83735; 85025; 87086; 93010; 94664; 99232; 99239; G0378; J0690; J1100; J1170; J1885; J2370; J2405; J2704

== ENCOUNTER 2022-10-11 10:42 | Outpatient (CLI) | payer MEDICARE, MEDICAID, SELFPAY ==
--- NOTE | 2022-10-11 10:55 | DI.RAD_ITS ---
Exam(s) XR TIB/FIB RT EXAM: XR TIB/FIB RT CLINICAL HISTORY: S/P IM FIXATION. TECHNIQUE: 2D digital imaging was performed. COMPARISON: CR,XR XR TIB/FIB LT from 09/17/2022 FINDINGS: 2 views-AP and lateral. There is an intramedullary conchita in the tibia transfixing the fracture site in the lower half the tibia . Satisfactory position. The fracture at the junction of the upper and mid thirds of the fibula aga in noted. No widening of the ankle mortise evident. No obvious fracture of the tibial plateau. IMPRESSION: As above. DATA REPOSITORY: RADIATION DOSE DELIVERED:
--- NOTE | 2022-10-11 10:58 | DI.RAD_ITS ---
Exam(s) XR ANKLE LT COMPLETE EXAM: XR ANKLE LT COMPLETE CLINICAL HISTORY: LEFT DISTAL TIB FX. TECHNIQUE: 2D digital imaging was performed. COMPARISON: CR,XR XR ANKLE LT COMPLETE from 09/17/[address] LOWER EXTREMITY LT WO from 09/17/2022 FINDINGS: 3 views Fracture line at the base of the medial malleolus is again noted, nondisplaced. No obvious fracture at the level of the posterior malleolus. Talar dome appears unremarkable. Later al malleolus unremarkable. There is no widening of the ankle mortise. Base of the 5th metatarsal is intact. IMPRESSION: Subtle fracture lines/till evident at the base of the medial malleolus, nondisplaced. No widening of the ankle mortise. Soft tissue swelling evident. DATA REPOSITORY: RADIATION DOSE DELIVERED:
== END 2022-10-11 10:43 | disposition home or self-care (01) ==
LOC: DIORS 10:42
PROVIDERS: PCP Nurse Practitioner Family; Referring Provider Nurse Practitioner Family; Visit Provider Student in an Organized Health Care Education/Training Program
DX: S82.302D Unspecified fracture of lower end of left tibia, subsequent encounter for closed fracture with routine healing (principal); S82.201D Unspecified fracture of shaft of right tibia, subsequent encounter for closed fracture with routine healing; S82.401D Unspecified fracture of shaft of right fibula, subsequent encounter for closed fracture with routine healing; S82.832D Other fracture of upper and lower end of left fibula, subsequent encounter for closed fracture with routine healing; X58.XXXD Exposure to other specified factors, subsequent encounter
CPT/HCPCS: 73590; 73610

== ENCOUNTER 2022-11-01 13:59 | Outpatient (REF) | payer MEDICARE, MEDICAID, SELFPAY ==
[2022-11-01 11:00] LABS: Abs Immature Grans 0.03 10^3/uL (0.0-0.06); Absolute Basophil Count 0.06 10^3/uL (0.0-0.2); Absolute Eosinophil Count 0.11 10^3/uL (0.0-0.7); Absolute Lymphocyte Count 1.66 10^3/uL (1.2-3.4); Absolute Monocyte Count 0.84 10^3/uL (0.1-0.8); Absolute Neutrophil Count 7.79 10^3/uL (1.2-6.7); Basophils % 0.6; HCT 39.2 % (36.0-46.0); HGB 12.4 g/dL (11.2-15.7); Immature Grans % 0.3; Lymphocytes % 15.8; MCH 31.6 pg (27.0-33.0); MCHC 31.6 % (32.0-36.0); MCV 100 fL (80-95); MPV 9.4 fL (8.0-11.0); Neutrophils % 74.3; Platelet Count 263 10^3/uL (130-400); RBC 3.92 10^6/uL (3.93-5.22); RDW-SD 51.3 fL; WBC 10.49 10^3/uL (4.4-10.8)
[2022-11-01 11:19] LABS: Iron 52 ug/dL (50-170); Total Iron Binding Capacity 338 ug/dL (250-450); Transferrin Sat 15 % (15-50)
[2022-11-01 11:25] LABS: Ferritin 62 ng/mL (8-252)
== END 2022-11-01 14:00 | disposition home or self-care (01) ==
LOC: NCHCN 13:59
PROVIDERS: PCP Nurse Practitioner Family; Visit Provider Nurse Practitioner Family
DX: D64.9 Anemia, unspecified (principal)
CPT/HCPCS: 82728; 83540; 83550; 85025

== ENCOUNTER 2022-11-08 10:33 | Outpatient (CLI) | payer MEDICARE, MEDICAID, SELFPAY ==
--- NOTE | 2022-11-08 10:00 | DI.RAD_ITS ---
Exam(s) XR TIB/FIB RT EXAM: XR TIB/FIB RT CLINICAL HISTORY: f/u fx. TECHNIQUE: 2D digital imaging was performed. COMPARISON: CR XR TIB/FIB RT from 10/11/2022 FINDINGS: Two views: Long intramedullary conchita in the tibia is again noted is stable alignment the fracture fragments in the distal tibia. No further displacement. No radiographic evidence of prominent callus formation at t his time. Fracture line still visible. No hardware loosening. No radiographic evidence of osteomye litis The fracture site in the upper half of the fibula appears unchanged. IMPRESSION: Stable appearance. DATA REPOSITORY: RADIATION DOSE DELIVERED:
--- NOTE | 2022-11-08 10:00 | DI.RAD_ITS ---
Exam(s) XR ANKLE LT COMPLETE EXAM: XR ANKLE LT COMPLETE CLINICAL HISTORY: f/u fx. TECHNIQUE: 2D digital imaging was performed. COMPARISON: CR XR ANKLE LT COMPLETE from 10/11/2022 FINDINGS: Five views: No evidence of acute fracture nor widening of the ankle mortise. Fracture site at the medial malleol us base exhibits further healing and no displacement. Talar dome unremarkable. No obvious degenerat kayden changes in the tibiotalar and subtalar joints. No osseous tarsal coalition. IMPRESSION: Further healing at the medial malleolus fracture site. No widening of the ankle mortise. DATA REPOSITORY: RADIATION DOSE DELIVERED:
== END 2022-11-08 10:34 | disposition home or self-care (01) ==
LOC: DIORS 10:33
PROVIDERS: PCP Nurse Practitioner Family; Referring Provider Nurse Practitioner Family
DX: S82.52XD Displaced fracture of medial malleolus of left tibia, subsequent encounter for closed fracture with routine healing; S82.832D Other fracture of upper and lower end of left fibula, subsequent encounter for closed fracture with routine healing; X58.XXXD Exposure to other specified factors, subsequent encounter
CPT/HCPCS: 73590; 73610

== ENCOUNTER 2022-11-10 13:51 | Outpatient (REF) | payer MEDICARE, MEDICAID, SELFPAY ==
[2022-11-10 15:01] LABS: HCT 41.1 % (36.0-46.0); MCH 31.6 pg (27.0-33.0); MCHC 31.6 % (32.0-36.0); MCV 100 fL (80-95); MPV 9.5 fL (8.0-11.0); Platelet Count 263 10^3/uL (130-400); RBC 4.12 10^6/uL (3.93-5.22); RDW 13.5 % (11.7-14.6); RDW-SD 50.2 fL
[2022-11-10 15:44] LABS: Folate 11.9 ng/mL (8.6-20.0)
[2022-11-10 15:45] LABS: Vitamin B12 > 2000 pg/mL (193-986)
== END 2022-11-10 13:52 | disposition home or self-care (01) ==
LOC: NCHCN 13:51
PROVIDERS: PCP Nurse Practitioner Family; Visit Provider Nurse Practitioner Family
DX: D64.9 Anemia, unspecified (principal); D75.89 Other specified diseases of blood and blood-forming organs; M79.604 Pain in right leg; M79.605 Pain in left leg; E53.8 Deficiency of other specified B group vitamins
CPT/HCPCS: 85027; 82607; 82746

== ENCOUNTER 2022-12-06 10:48 | Outpatient (CLI) | payer MEDICARE, MEDICAID, SELFPAY ==
--- NOTE | 2022-12-06 10:30 | DI.RAD_ITS ---
Exam(s) XR TIB/FIB RT EXAM: XR TIB/FIB RT INDICATION: s/p IM fixation. COMPARISON: CR XR TIB/FIB RT from 11/08/2022 TECHNIQUE: 2D digital imaging was performed. Two views. FINDINGS: Intramedullary conchita is again noted in the tibia. There has been continued healing at distal tibial an d proximal fibular fractures. No new abnormalities are seen. DATA REPOSITORY: RADIATION DOSE DELIVERED:
--- NOTE | 2022-12-06 10:30 | DI.RAD_ITS ---
Exam(s) XR ANKLE LT COMPLETE EXAM: XR ANKLE LT COMPLETE CLINICAL HISTORY: fu left fib fracture TECHNIQUE: 2D digital imaging was performed. Three views. COMPARISON: CR,XR XR ANKLE LT COMPLETE from 09/17/2022 CR XR ANKLE LT COMPLETE from 11/08/2022 FINDINGS: BONES: There has been further healing at the medial malleolar fracture. No new abnormalities are see n. No bony destructive lesion is seen. Heel spurs are again noted. JOINTS:The ankle mortise is normally aligned. SOFT TISSUE: Normal. IMPRESSION: Healing fracture of the medial malleolus. DATA REPOSITORY: RADIATION DOSE DELIVERED:
== END 2022-12-06 10:49 | disposition home or self-care (01) ==
LOC: DIORS 10:48
PROVIDERS: PCP Nurse Practitioner Family; Referring Provider Nurse Practitioner Family; Visit Provider Student in an Organized Health Care Education/Training Program
DX: S82.832D Other fracture of upper and lower end of left fibula, subsequent encounter for closed fracture with routine healing (principal); S82.201D Unspecified fracture of shaft of right tibia, subsequent encounter for closed fracture with routine healing; S82.301D Unspecified fracture of lower end of right tibia, subsequent encounter for closed fracture with routine healing; X58.XXXD Exposure to other specified factors, subsequent encounter
CPT/HCPCS: 73590; 73610

== ENCOUNTER 2023-01-02 12:08 | Outpatient (REF) | payer MEDICARE, MEDICAID, SELFPAY ==
[2023-01-02 14:50] LABS: Reticulocyte 1.4 % (0.5-2.4)
[2023-01-04 14:10] LABS: Albumin 58.8 % (55.8-66.1); Albumin g/dL 3.8 g/dL (3.6-5.2); Total Protein 6.4 g/dL (6.3-8.2)
== END 2023-01-02 12:09 | disposition home or self-care (01) ==
LOC: NCHCN 12:08
PROVIDERS: PCP Nurse Practitioner Family; Visit Provider Nurse Practitioner Family
DX: D75.89 Other specified diseases of blood and blood-forming organs (principal)
CPT/HCPCS: 82525; 84165; 85045

== ENCOUNTER 2023-01-13 01:15 | Outpatient (CLI) | payer MEDICARE, MEDICAID, SELFPAY ==
--- NOTE | 2023-01-13 | DI.DEXA_ITS ---
Exam(s) XR DEXA BONE DENSITY W/WO KILO EXAM: XR DEXA BONE DENSITY W/WO KILO CLINICAL HISTORY: OSTEOPOROSIS M81.0 TECHNIQUE: HoloKeyVive Horizon C densitometer analysis of left hip, lumbar spine and left forearm. Lat eral survey image of the thoracic and lumbar spine could not be performed due to patient pain. COMPARISON: No exams were available for comparison FINDINGS: Bone mineral density measurements of the lumbar spine correspond to a total T-score of -1.5, in the osteopenic range. Bone mineral density measurements of the left hip correspond to a total T-score of -2.6. The femora l neck T-score is -3.3, in the osteoporotic range.. The left forearm bone mineral density measurements correspond to a T-score of the distal 3rd of -4.2 , in the osteoporotic range. IMPRESSION: Osteoporosis of the left hip and forearm. Osteopenia of the spine.
--- NOTE | 2023-01-13 11:23 | DI.MAMMO_ITS ---
Exam(s) MG MAMMO SCREENING 60 MIN DUR EXAM: MG MAMMO SCREENING 60 MIN DUR CLINICAL HISTORY: SCREENING MAMMO Z12.31 TECHNIQUE: Mammograms were interpreted according to the usual protocol including computer analysis w ith CAD system, tomosynthesis and C-view imaging. COMPARISON: No comparison exams are available. If priors become available, an addendum will be issu ed. FINDINGS: The breasts are composed of mainly fatty density , Breast Density category A. No suspicious masses or suspicious microcalcifications are seen. No skin thickening or abnormal axillary lymph nodes are seen. IMPRESSION: BI-RADS Category 1, Negative mammogram Yearly screening mammography is recommended. Breast Density - Category A, fatty density. A negative radiographic report should not delay biopsy if a dominant or clinically suspicious mass is present. Up to ten percent of cancers are not identified on mammography. A negative report may reinforce clinical impression. Adenosis and dense breasts may obscure an underlying neoplasm. False positive reports average 6 to 10%. Patient will receive a letter notifying them of these results.
== END 2023-01-13 01:35 ==
LOC: DI 01:15
PROVIDERS: PCP Nurse Practitioner Family; Visit Provider Nurse Practitioner Family
DX: M81.0 Age-related osteoporosis without current pathological fracture (principal); Z13.820 Encounter for screening for osteoporosis; M85.88 Other specified disorders of bone density and structure, other site
CPT/HCPCS: 77080

== ENCOUNTER 2023-01-13 02:09 | Outpatient (CLI) | payer MEDICARE, MEDICAID, SELFPAY ==
[2023-01-13 10:31] LABS: Bilirubin Negative (Negative); Blood Negative (Negative); Clarity Clear (Clear); Glucose Negative (Negative); Ketones Trace mg/dL (Negative); Leukocyte Esterase Small (Negative); Nitrite Negative (Negative); pH 5.5 (5-8)
[2023-01-13 10:38] LABS: Bacteria Few HPF (Negative); C & S Indicated? No/Sq. Contamination; Casts 0-2 Hyaline LPF (Negative); Crystals Negative HPF (Negative); Epithelial Cells Moderate HPF (Negative); Mucus Trace (Negative); RBC Negative HPF (0-2)
[2023-01-13 11:17] LABS: COMMENT (LAB VIEW ONLY) 181.85 mg/dL; Microalb ug/mg Crea 5.6 ug/mg Cr
[2023-01-14 19:21] LABS: Copper, Serum 141 mcg/dL (77-206)
== END 2023-01-13 02:10 | disposition home or self-care (01) ==
LOC: LBO 02:09
PROVIDERS: PCP Nurse Practitioner Family; Visit Provider Nurse Practitioner Family
DX: D75.89 Other specified diseases of blood and blood-forming organs (principal); N39.0 Urinary tract infection, site not specified; R74.8 Abnormal levels of other serum enzymes
CPT/HCPCS: 36415; 77063; 77067; 77080; 82525; 81003; 81015; 82043; 82570

== ENCOUNTER 2023-01-19 11:56 | Outpatient (REF) | payer MEDICARE, MEDICAID, SELFPAY ==
[2023-01-19 10:13] LABS: Abs Immature Grans 0.03 10^3/uL (0.0-0.06); Absolute Basophil Count 0.07 10^3/uL (0.0-0.2); Absolute Eosinophil Count 0.11 10^3/uL (0.0-0.7); Absolute Lymphocyte Count 1.76 10^3/uL (1.2-3.4); Absolute Monocyte Count 0.55 10^3/uL (0.1-0.8); Absolute Neutrophil Count 7.13 10^3/uL (1.2-6.7); Basophils % 0.7; Eosinophils % 1.1; HCT 42.5 % (36.0-46.0); HGB 13.5 g/dL (11.2-15.7); Immature Grans % 0.3; Lymphocytes % 18.2; MCH 30.6 pg (27.0-33.0); MCHC 31.8 % (32.0-36.0); MCV 96 fL (80-95); MPV 9.2 fL (8.0-11.0); Monocytes % 5.7; Platelet Count 250 10^3/uL (130-400); RBC 4.41 10^6/uL (3.93-5.22); RDW 14.4 % (11.7-14.6); RDW-SD 51.3 fL; Reticulocyte 1.5 % (0.5-2.4); WBC 9.65 10^3/uL (4.4-10.8)
[2023-01-19 11:04] LABS: Folate 13.3 ng/mL (8.6-20.0)
[2023-01-19 11:05] LABS: Vitamin B12 > 2000 pg/mL (193-986)
[2023-01-20 11:14] LABS: Haptoglobin 184 mg/dL (32-197)
== END 2023-01-19 11:57 | disposition home or self-care (01) ==
LOC: NCHCN 11:56
PROVIDERS: PCP Nurse Practitioner Family; Visit Provider Nurse Practitioner Family
DX: D64.9 Anemia, unspecified (principal); D75.89 Other specified diseases of blood and blood-forming organs; E53.8 Deficiency of other specified B group vitamins
CPT/HCPCS: 82607; 82746; 83010; 85025; 85045

== ENCOUNTER 2023-01-31 11:22 | Outpatient (CLI) | payer MEDICARE, MEDICAID, SELFPAY ==
--- NOTE | 2023-01-31 12:20 | DI.RAD_ITS ---
Exam(s) XR FOOT RT COMPLETE EXAM: XR FOOT RT COMPLETE CLINICAL HISTORY: fall/pain. TECHNIQUE: 2D digital imaging was performed. COMPARISON: CR,XR XR FOOT LT LIMITED from 09/17/2022 FINDINGS: 3 views Hardware at level of the ankle is described on the ankle images. There is osteopenia in the foot evident. There appears to be a fracture site at the head-neck level of the 4th metatarsal. IMPRESSION: Healing fracture 4th metatarsal head-neck. DATA REPOSITORY: RADIATION DOSE DELIVERED:
--- NOTE | 2023-01-31 12:20 | DI.RAD_ITS ---
Exam(s) XR ANKLE RT COMPLETE EXAM: XR ANKLE RT COMPLETE CLINICAL HISTORY: fall/pain. TECHNIQUE: 2D digital imaging was performed. COMPARISON: CR XR ANKLE LT COMPLETE from 10/11/2022 CR XR ANKLE LT COMPLETE from 11/08/2022 CR XR TIB/FIB RT from 12/06/2022 CR XR ANKLE LT COMPLETE from 12/06/2022 FINDINGS: Three views. Lower aspect of lung trick medullary conchita in the tibia is noted. Healing oblique fracture of the dist al diaphysis of the tibia is again noted appears stable. No acute appearing ankle fractures identifi ed. No widening of the ankle mortise. Talar dome unremarkable. No hardware loosening. The intrame dullary conchita is secured by 3 3 screws distally, without evidence of sitting and no radiographic eviden ce of osteomyelitis. Sub talar and tibiotalar joints appear unremarkable. IMPRESSION: Satisfactory appearance. DATA REPOSITORY: RADIATION DOSE DELIVERED:
--- NOTE | 2023-01-31 12:21 | DI.RAD_ITS ---
Exam(s) XR TIB/FIB RT EXAM: XR TIB/FIB RT CLINICAL HISTORY: fall/pain. TECHNIQUE: 2D digital imaging was performed. COMPARISON: CR XR TIB/FIB RT from 12/06/2022 FINDINGS: Two views: Stable position of the intramedullary conchita and distal oblique fracture site in the distal diaphysis of the tibia. No further displacement. Some callus formation noted. No hardware loosening. Also fur ther callus formation at the healing fracture in the proximal half of the ipsilateral fibula. IMPRESSION: Satisfactory appearance. DATA REPOSITORY: RADIATION DOSE DELIVERED:
== END 2023-01-31 11:23 | disposition home or self-care (01) ==
LOC: DIORS 11:22
PROVIDERS: PCP Nurse Practitioner Family; Referring Provider Nurse Practitioner Family; Visit Provider Student in an Organized Health Care Education/Training Program
DX: S82.831D Other fracture of upper and lower end of right fibula, subsequent encounter for closed fracture with routine healing; S82.832D Other fracture of upper and lower end of left fibula, subsequent encounter for closed fracture with routine healing; X58.XXXD Exposure to other specified factors, subsequent encounter
CPT/HCPCS: 99213; 73590; 73610; 73630

== ENCOUNTER 2023-02-15 01:49 | Outpatient (CLI) | payer MEDICARE, MEDICAID, SELFPAY ==
--- NOTE | 2023-02-15 | DI.CT_ITS ---
Exam(s) CT CHEST WO EXAM: CT CHEST WO CLINICAL HISTORY: FORMER SMOKER, Z87.8916 MO F/U, F/U ABNL LDCT,RLL PULMONARY NODULE. TECHNIQUE: Multi planar reconstructions were performed. CONTRAST MATERIAL: None COMPARISON: CT CT CHEST LUNG CANCER SCREEN from 08/20/2022 FINDINGS: CHEST: LUNGS: Benign calcified granulomas again noted in the lower lobe left lung. The previously described right lower lobe nodule exhibits stable size. No new nodules. No confluent infiltrates. No pleura l effusions no new findings in trachea and mainstem bronchi. MEDIASTINUM: There is no obvious hilar nor mediastinal adenopathy. Visualized thyroid unremarkable.No obvious axillary adenopathy CARDIAC: Heart size is normal. There is no pericardial effusion.Moderate coronary artery calcificati on noted in the LAD. The thoracic aorta is within normal limits. VISUALIZED UPPER ABDOMEN:There appears to been prior bariatric surgery. OSSEOUS: No significant osseous lesions.Fractures.. IMPRESSION: 1. Stable appearance of previously described right lower lobe nodule. No new ominous pulmonary nodul es nor pleural effusions. No intrathoracic adenopathy. 2. Other findings as above RADIATION DOSE DELIVERED: Total DLP DATA REPOSITORY: All CT scans at this facility are submitted to the National Radiology Data Registry (NRDR) Dose Index Registry (DIR) with the [employer] (ACR). RADIATION OPTIMIZATION: All CT scans at this facility use at least one of these dose optimization te chniques: automated exposure control; mA and/or kV adjustment per patient size (includes targeted exa ms where dose is matched to clinical indication); or iterative reconstruction.
== END 2023-02-15 02:09 ==
LOC: DI 01:50
PROVIDERS: PCP Nurse Practitioner Family; Visit Provider Nurse Practitioner Family
DX: Z87.891 Personal history of nicotine dependence (principal); M81.0 Age-related osteoporosis without current pathological fracture; R91.1 Solitary pulmonary nodule
CPT/HCPCS: 71250

== ENCOUNTER → 2023-03-14 10:34 | Outpatient (BNVA) | payer MEDICARE, MEDICAID, SELFPAY | PROVIDERS: PCP Nurse Practitioner Family; Referring Provider Nurse Practitioner Family; Visit Provider Student in an Organized Health Care Education/Training Program | DX: S82.201D Unspecified fracture of shaft of right tibia, subsequent encounter for closed fracture with routine healing (principal); S82.401D Unspecified fracture of shaft of right fibula, subsequent encounter for closed fracture with routine healing; S82.832D Other fracture of upper and lower end of left fibula, subsequent encounter for closed fracture with routine healing; X58.XXXD Exposure to other specified factors, subsequent encounter | CPT/HCPCS: 99213 ==

== ENCOUNTER 2023-03-21 13:24 | Outpatient (REF) | payer MEDICARE, MEDICAID, SELFPAY ==
[2023-03-21 16:06] LABS: Abs Immature Grans 0.03 10^3/uL (0.0-0.06); Absolute Basophil Count 0.07 10^3/uL (0.0-0.2); Absolute Eosinophil Count 0.07 10^3/uL (0.0-0.7); Absolute Lymphocyte Count 1.83 10^3/uL (1.2-3.4); Absolute Monocyte Count 0.66 10^3/uL (0.1-0.8); Absolute Neutrophil Count 8.03 10^3/uL (1.2-6.7); Basophils % 0.7; Eosinophils % 0.7; HCT 42.8 % (36.0-46.0); HGB 13.5 g/dL (11.2-15.7); Immature Grans % 0.3; Lymphocytes % 17.1; MCH 31.4 pg (27.0-33.0); MCHC 31.5 % (32.0-36.0); MCV 100 fL (80-95); MPV 9.9 fL (8.0-11.0); Monocytes % 6.2; Platelet Count 274 10^3/uL (130-400); RDW 15.3 % (11.7-14.6); WBC 10.69 10^3/uL (4.4-10.8)
[2023-03-21 17:15] LABS: ALT 23 U/L (14-59); AST 14 U/L (15-37); Albumin 3.9 g/dL (3.4-5.0); Alkaline Phosphatase 94 U/L (46-116); Anion Gap 7.2 mmol/L (3-11); BUN 21 mg/dL (7-18); Bilirubin, Total 0.3 mg/dL (0.2-1.0); CO2 30.8 mmol/L (21.0-32.0); CREATININE 0.8 mg/dL (0.55-1.02); Calcium 9.5 mg/dL (8.5-10.1); Chloride 104 mmol/L (98-107); Estimated GFR 83.26 (mL/min/1.73m2); Ferritin 47 ng/mL (8-252); Glucose 109 mg/dL (74-106); Potassium 4.3 mmol/L (3.5-5.1); Sodium 142 mmol/L (136-145); Total Protein 6.6 g/dL (6.4-8.2)
[2023-03-21 17:16] LABS: Vitamin B12 > 2000 pg/mL (193-986)
[2023-03-21 17:38] LABS: Iron 54 ug/dL (50-170); Total Iron Binding Capacity 320 ug/dL (250-450); Transferrin Sat 17 % (15-50)
[2023-03-21 18:24] LABS: Vitamin D 25 Total 56.7 ng/mL (30-100)
[2023-03-21 22:27] LABS: Parathyroid Hormone,Intact 37 pg/mL (19-88)
[2023-03-23 12:42] LABS: Lamotrigine 3.6 mcg/mL (3.0-15.0)
== END 2023-03-21 13:25 | disposition home or self-care (01) ==
LOC: NCHCN 13:24
PROVIDERS: PCP Nurse Practitioner Family; Visit Provider Nurse Practitioner Family
DX: D64.9 Anemia, unspecified (principal); D75.89 Other specified diseases of blood and blood-forming organs; E55.9 Vitamin D deficiency, unspecified; E53.8 Deficiency of other specified B group vitamins; R56.9 Unspecified convulsions; F31.9 Bipolar disorder, unspecified; Z98.84 Bariatric surgery status; E66.9 Obesity, unspecified; Z79.899 Other long term (current) drug therapy; Z51.81 Encounter for therapeutic drug level monitoring
CPT/HCPCS: 80053; 80175; 82306; 82607; 82728; 83540; 83550; 83874; 83970; 85025

== ENCOUNTER 2023-07-31 15:54 | Outpatient (REF) | payer MEDICARE, MEDICAID, SELFPAY ==
[2023-07-31 16:17] LABS: Abs Immature Grans 0.04 10^3/uL (0.0-0.06); Absolute Basophil Count 0.07 10^3/uL (0.0-0.2); Absolute Eosinophil Count 0.06 10^3/uL (0.0-0.7); Absolute Lymphocyte Count 2.14 10^3/uL (1.2-3.4); Absolute Monocyte Count 0.73 10^3/uL (0.1-0.8); Absolute Neutrophil Count 7.76 10^3/uL (1.2-6.7); Basophils % 0.6; Eosinophils % 0.6; HCT 41.6 % (36.0-46.0); HGB 13.3 g/dL (11.2-15.7); Immature Grans % 0.4; Lymphocytes % 19.8; MCH 31.3 pg (27.0-33.0); MCV 98 fL (80-95); MPV 9.8 fL (8.0-11.0); Monocytes % 6.8; Neutrophils % 71.8; Platelet Count 250 10^3/uL (130-400); RBC 4.25 10^6/uL (3.93-5.22); RDW 14.7 % (11.7-14.6); RDW-SD 53.5 fL
[2023-07-31 16:40] LABS: Iron 81 ug/dL (50-170); Total Iron Binding Capacity 326 ug/dL (250-450); Transferrin Sat 25 % (15-50)
[2023-07-31 17:04] LABS: ALT 22 U/L (14-59); AST 12 U/L (15-37); Albumin 3.6 g/dL (3.4-5.0); Alkaline Phosphatase 94 U/L (46-116); Anion Gap 4.3 mmol/L (3-11); BUN 25 mg/dL (7-18); Bilirubin, Total 0.3 mg/dL (0.2-1.0); CO2 32.7 mmol/L (21.0-32.0); Calcium 9.6 mg/dL (8.5-10.1); Chloride 101 mmol/L (98-107); Ferritin 42 ng/mL (8-252); Glucose 81 mg/dL (74-106); Potassium 4.9 mmol/L (3.5-5.1); Sodium 138 mmol/L (136-145); Total Protein 6.4 g/dL (6.4-8.2); Vitamin B12 1898 pg/mL (193-986)
[2023-08-05 12:26] LABS: Thiamine (Vitamin B1), WB 184 nmol/L (70-180)
== END 2023-07-31 15:55 | disposition home or self-care (01) ==
LOC: NCHCN 15:54
PROVIDERS: PCP Nurse Practitioner Family; Visit Provider Nurse Practitioner Family
DX: E66.9 Obesity, unspecified (principal)
CPT/HCPCS: 80053; 82306; 82607; 82728; 83036; 83540; 83550; 84425; 85025

== ENCOUNTER 2023-10-27 16:46 | Outpatient (REF) | payer MEDICARE, MEDICAID, SELFPAY ==
[2023-10-27 16:19] LABS: TSH (W/Ref FT4) 2.01 uIU/mL (0.36-3.74)
== END 2023-10-27 16:47 | disposition home or self-care (01) ==
LOC: NCHCN 16:46
PROVIDERS: PCP Nurse Practitioner Family; Visit Provider Nurse Practitioner Family
DX: E03.9 Hypothyroidism, unspecified (principal)
CPT/HCPCS: 84443

== ENCOUNTER → 2023-12-30 15:18 | Outpatient (CLI) | payer MEDICARE, MEDICAID, SELFPAY ==
--- NOTE | 2023-12-30 | DI.RAD_ITS ---
Exam(s) XR KNEE LT 3V AP,LAT,MAYRA EXAM: XR KNEE LT 3V AP,LAT,MAYRA CLINICAL HISTORY: M25.562 pain in rt leg, fell, twisted rt knee/leg. TECHNIQUE: 2D digital imaging was performed of the left knee. Three images were obtained. AP, late ral and PA tunnel views were obtained. COMPARISON: No priors for comparison. FINDINGS: BONES: No acute fracture is present. No bony destructive lesion is seen. Enthesophytes are seen at t he anterior patella. JOINTS: The knee is normally aligned. No joint effusion is seen. No loose body. SOFT TISSUE: Normal. IMPRESSION: No acute fracture or dislocation. DATA REPOSITORY: RADIATION DOSE DELIVERED:
--- NOTE | 2023-12-30 | DI.RAD_ITS ---
Exam(s) XR KNEE RT 3V AP,LAT,MAYRA XR TIB/FIB RT EXAM: XR TIB/FIB RT and XR knee RT 3 V CLINICAL HISTORY: M79.604 pain in rt leg, fell, twisted rt knee/leg. TECHNIQUE: 2D digital imaging was performed of the right knee, tibia and fibula. Five images were ob tained. AP, AP tunnel and lateral views were obtained. COMPARISON: CR XR TIB/FIB RT from 01/31/2023 CR XR KNEE RT 3V AP,LAT,MAYRA from 12/30/2023 FINDINGS: BONES: No acute fracture is present. There is an intramedullary conchita again seen in the tibia. Old he aled tibial and fibular fractures are noted. No bony destructive lesion is seen. The knee is well ma intained. The articular surfaces are unremarkable. There is a small joint effusion. There is a sma ll enthesophyte at the superior patella. SOFT TISSUE: Normal. IMPRESSION: No acute fracture or dislocation in the right knee, tibia or fibula. DATA REPOSITORY: RADIATION DOSE DELIVERED:
== END ==
PROVIDERS: PCP Nurse Practitioner Family; Visit Provider Nurse Practitioner Family
DX: M79.604 Pain in right leg (principal); M79.605 Pain in left leg
CPT/HCPCS: 73562; 73590

== ENCOUNTER 2024-01-01 10:22 | Outpatient (REF) | payer MEDICARE, MEDICAID, SELFPAY ==
[2024-01-01 11:52] LABS: Bilirubin Negative (Negative); Blood Negative (Negative); Clarity Clear (Clear); Glucose Negative (Negative); Ketones Negative (Negative); Leukocyte Esterase Small (Negative); Nitrite Negative (Negative); Urobilinogen 0.2 mg/dL (Up to 0.2)
[2024-01-01 11:59] LABS: Bacteria Rare HPF (Negative); C & S Indicated? Yes; Casts Negative LPF (Negative); Crystals Negative HPF (Negative); Epithelial Cells Few HPF (Negative); Mucus Negative (Negative); RBC Negative HPF (0-2)
[2024-01-01 13:01] LABS: COMMENT (LAB VIEW ONLY) 103.44 mg/dL; Microalb ug/mg Crea 8.3 ug/mg Cr
== END 2024-01-01 10:23 | disposition home or self-care (01) ==
LOC: LBN 10:22
PROVIDERS: PCP Nurse Practitioner Family; Visit Provider Nurse Practitioner Family
DX: I25.10 Atherosclerotic heart disease of native coronary artery without angina pectoris (principal)
CPT/HCPCS: 81003; 81015; 82043; 82570; 87086

== ENCOUNTER → 2024-02-22 00:42 | Outpatient (CLI) | payer MEDICARE, MEDICAID, SELFPAY ==
--- OUTSIDE RECORDS SUMMARY | 2024-02-22 00:44 | XMS_ITS | Encounter Summary ---
Author Organization [facility] Address [address] [place] [address] Care Team Providers Care Surveyor Mine Name Role Phone Unavailable Primary Care Provider Unavailabl e Encounter Details Date Type Department Care Team (Late st Contact Info) Description 01/03/2023 Lab Requisition [facility] Pathology & Laboratory Medicine - [facility] [address] [place] [address] Outr Resulting Lab, Provider Social History Tobacco Use Types Packs/Day Years Used Date Smoking Tobacco: Never Assessed Sex and Gender Information Value Date Recorded Sex Assigned at Not on file Gender Identity Not on file Sexual Orientation Not on file documented as of this encounter Plan of Treatment Not on file documented as of this encounter Procedures Procedure Name Priority Date/Time Associated Diagnosis Comments SPEP, INCLUDES QUANTITATION OF MONOCLONAL SPIKE PERFORMABLE Today 01/02/2023 11:00 EDT SPEP, INCLUDES QUANTITATION OF MONOCLONAL SPIKE Routine 01/02/2023 11:00 EDT PROTEIN, TOTAL Today 01/02/2023 11:00 EDT documented in this encounter Results * (ABNORMAL) SPEP, INCLUDES QUANTITATION OF MONOCLONAL SPIKE PERFORMABLE (01/02/2023 11:00 EDT) Albumin % 58.8 55.8 - 66.1 % 01/04/2023 14:04 EDT [facility] Albumin g/dL 3.8 3.6 - 5.2 g/dL 01/04/2023 14:04 EDT [facility] Alpha-1 % 5.6(H) 2.9 - 4.9 % 01/04/2023 14:04 EDT [facility] Alpha-1 g/dL 0.40 0.15 - 0.40 g/dL 01/04/2023 14:04 [facility] Alpha-2 % 11.8 7.1 - 11.8 % 01/04/2023 14:04 [facility] Alpha-2 g/dL 0.80 0.50 - 1.00 g/dL 01/04/2023 14:04 [facility] Beta % 12.8 8.4 - 13.1 % 01/04/2023 14:04 [facility] Beta g/dL 0.80 0.60 - 1.20 g/dL 01/04/2023 14:04 [facility] Gamma % 11.0(L) 11.1 - 18.8 % 01/04/2023 14:04 [facility] Gamma g/dL 0.70 0.60 - 1.60 g/dL 01/04/2023 14:04 [facility] SPEP Comment No apparent monoclonal protein seen on serum electrophoresis 01/04/2023 14:04 [facility] Comment:See scanned/suppleme ntary report. Total Protein 6.4 6.3 - 8.2 g/dL 01/04/2023 14:04 [facility] Blood VENOUS BLOOD / Unknown 01/02/2023 11:00 EDT 01/03/2023 17:13 EDT Provider Outr Resulting Lab CHEMISTRY & BLOOD GAS ORDERABLES Performing Organization Address City/[facility]/ZIP Co de Phone Number [facility] [address] [place] [address] * PROTEIN, TOTAL (01/02/2023 11:00 EDT) Blood VENOUS BLOOD / Unknown 01/02/2023 11:00 EDT 01/03/2023 17:13 EDT Provider Outr Resulting Lab CHEMISTRY & BLOOD GAS ORDERABLES Performing Organization Address City/[facility]/ZIP Co de Phone Number [facility] [address] [place] [address] documented in this encounter Visit Diagnoses Not on filedocumented in this encounter
--- OUTSIDE RECORDS SUMMARY | 2024-02-22 00:44 | XMS_ITS | Encounter Summary ---
Author Organization [facility] Address [address] [place] [address] Care Team Providers Care Groutman Name Role Phone Unavailable Primary Care Provider Unavailabl e Encounter Details Date Type Department Care Team (Late st Contact Info) Description 08/02/2022 Lab Requisition [facility] Pathology & Laboratory Medicine - [facility] [address] [place] [address] Outr Resulting Lab, Provider Social History Tobacco [...] Procedure Name Priority Date/Time Associated Diagnosis Comments PTH INTACT Routine 08/02/2022 9:00 EST documented in this encounter Results * PTH INTACT (08/02/2022 9:00 EST) Intact PTH 38 19 - 88 pg/mL 08/02/2022 23:37 EST [facility] Blood VENOUS BLOOD / Unknown 08/02/2022 9:00 EST 08/02/2022 17:01 EST Provider Outr Resulting Lab CHEMISTRY & BLOOD GAS ORDERABLES [facility] [address] [place] [address] documented in this encounter Visit Diagnoses Not on filedocumented in this encounter
--- OUTSIDE RECORDS SUMMARY | 2024-02-22 00:44 | XMS_ITS | Encounter Summary ---
Author Organization [facility] Address [address] [place] [address] Care Team Providers Care Glass Designer Name Role Phone Unavailable Primary Care Provider Unavailabl e Encounter Details Date Type Department Care Team (Late st Contact Info) Description 03/21/2023 Lab Requisition [facility] Pathology & Laboratory Medicine - [facility] [address] [place] [address] Outr Resulting Lab, Provider Social History Tobacco [...] Date/Time Associated Diagnosis Comments PTH INTACT Routine 03/21/2023 9:45 EDT documented in this encounter Results * PTH INTACT (03/21/2023 9:45 EDT) Intact PTH 37 19 - 88 pg/mL 03/21/2023 22:22 EDT [facility] Blood VENOUS BLOOD / Unknown 03/21/2023 9:45 EDT 03/21/2023 21:17 EDT Provider Outr Resulting Lab CHEMISTRY & BLOOD GAS ORDERABLES [facility] [address] [place] [address] documented in this encounter Visit Diagnoses Not on filedocumented in this encounter
--- OUTSIDE RECORDS SUMMARY | 2024-02-22 00:44 | XMS_ITS | Referral Summary ---
Author Organization [facility] Address [address] [place] [address] Care Team Providers Care Aircraft Systems Repairer Name Role Phone Unavailable Primary Care Provider Unavailabl e Social History Tobacco Use Types Packs/Day Years Used Date Smoking Tobacco: Never Assessed Sex and Gender Information Value Date Recorded Sex Assigned at Not on file Gender Identity Not on file Sexual Orientation Not on file Plan of Treatment Not on file
--- OUTSIDE RECORDS SUMMARY | 2024-02-22 00:44 | XMS_ITS | Clinical Summary ---
Author Organization [facility] Address [address] [place] [address] Care Team Providers Care Director Of Student Financial Services Name Role Phone Unavailable Primary Care Provider Unavailabl e Social History Tobacco Use Types Packs/Day Years Used Date Smoking Tobacco: Never Assessed Sex and Gender Information Value Date Recorded Sex Assigned at Not on file Gender Identity Not on file Sexual Orientation Not on file Plan of Treatment Health Maintenance Due Date Last Done Comments Hepatitis C Screen 1960 RSV Immunization ( o r 60+ Years) (1 - 1-dose 60+ series) 2020 COVID-19 Vaccine (24 season) 2023
--- OUTSIDE RECORDS SUMMARY | 2024-02-22 00:44 | XMS_ITS | Encounter Summary ---
Author Organization [facility] Address [address] [place] [address] Care Team Providers Care Electric Motors Salesperson Name Role Phone Unavailable Primary Care Provider Unavailabl e Encounter Details Date Type Department Care Team (Late st Contact Info) Description 09/09/2022 Lab Requisition [facility] Pathology & Laboratory Medicine - [facility] [address] [place] [address] Outr Resulting Lab, Provider Social History Tobacco [...] Procedure Name Priority Date/Time Associated Diagnosis Comments INSULIN Routine 09/09/2022 7:35 EST documented in this encounter Results * INSULIN (09/09/2022 7:35 EST) Insulin 7.8 <29.0 uIU/mL 09/13/2022 9:38 EST [facility] Comment: Displayed Reference Range applies to fasting specimens only. Blood VENOUS BLOOD / Unknown 09/09/2022 7:35 EST 09/09/2022 16:51 EST Provider Outr Resulting Lab CHEMISTRY & BLOOD GAS ORDERABLES [facility] [address] [place] [address] documented in this encounter Visit Diagnoses Not on filedocumented in this encounter
--- OUTSIDE RECORDS SUMMARY | 2024-02-22 00:44 | XMS_ITS | Encounter Summary ---
Author Organization [facility] Address [address] [place] [address] Care Team Providers Care Phlebotomist Prn Name Role Phone Unavailable Primary Care Provider Unavailabl e Encounter Details Date Type Department Care Team (Late st Contact Info) Description 01/19/[address] [facility] Pathology & Laboratory Medicine - [facility] [address] [place] [address] Outr Resulting Lab, Provider Social History Tobacco [...] Procedure Name Priority Date/Time Associated Diagnosis Comments HAPTOGLOBIN Routine 01/19/2023 8:05 EDT documented in this encounter Results * HAPTOGLOBIN (01/19/2023 8:05 EDT) Haptoglobin 184 32 - 197 mg/dL 01/20/2023 11:[address] [facility] Blood VENOUS BLOOD / Unknown 01/19/2023 8:05 EDT 01/19/2023 17:07 EDT Provider Outr Resulting Lab CHEMISTRY & BLOOD GAS ORDERABLES [facility] [address] [place] [address] documented in this encounter Visit Diagnoses Not on filedocumented in this encounter
--- OUTSIDE RECORDS SUMMARY | 2024-02-22 00:45 | XMS_ITS | Encounter Summary ---
Author Organization [facility] [place] [address] Care Team Providers Care Network Support Manager Name Role Phone Hoang Castellanos APRN Primary Care Provider Encounter Details Date Type Department Care Team (Late st Contact Info) Description 05/06/2022 12:00 PM EDT Home Care Visit [facility] [address] [place] [id number] Kimberly Austin, RETAIL SERVICE SPECIALIST LT LIABILITY CLAIMS MANAGER HOME VISIT Social History Tobacco Use Types Packs/Day Years Used Date Smoking Tobacco: Every Day Cigarettes Last attempted to quit: 07/25/2021 Smokeless Tobacco: Never Comments:smoking 3 cigarette s some days Alcohol Use Standard Drinks/Week Comments No 0 (1 standard drink = 0.6 oz pur e alcohol) not drank in 24 years Overall Financial Resource Strain (CARDIA) Answe r Date Recorded How hard is it for you to pa y for the very basics like food, housing, medical care, and heating? Hard 03/23/2022 Exercise Vital Sign Answer Date Recorde d On average, how many days pe r week do you engage in moderate to strenuous exercise (like a brisk walk)? 1 day Minutes of Exercise per Session Not on file 03/23/2022 Hunger Vital Sign Answer Date Recorded Within the past 12 months, y ou worried that your food would run out before you got the money to buy more. Sometimes true Within the past 12 months, t he food you bought just didn't last and you didn't have money to get more. Often true PRAPARE - Transportation Answer Date Re corded In the past 12 months, has l ack of transportation kept you from medical appointments or from getting medications? No 02/24 In the past 12 months, has l ack of transportation kept you from meetings, work, or from getting things needed for daily living? No 03/23/2022 Housing Stability Vital Sign Answer Aaron e Recorded In the last 12 months, was t here a time when you were not able to pay the mortgage or rent on time? No 03/23/2022 In the last 12 months, how many places have you lived? 1 03/23/2022 In the last 12 months, was t here a time when you did not have a steady place to sleep or slept in a care home (including now)? No 03/23/2022 Sex and Gender Information Value Date Recorded Sex Assigned at Not on file Gender Identity Not on file Sexual Orientation Not on file documented as of this encounter Plan of Treatment Not on file documented as of this encounter Visit Diagnoses Not on filedocumented in this encounter Home Health Visit - Care Plan Visit Details Visit Type -LTC LIABILITY CLAIMS MANAGER Home Vis it Discipline -Home Health Aide Problems Problem Description Start Date Status Goals Interve ntions A Required Screenings Disciplines: [facility] 03/25/2022 Active 1 goal linked to scheduled/documente d intervention 1 goal intervention scheduled/documente d in this visit Other Disciplines: [facility] 03/25/2022 Active 1 goal linked to scheduled/documente d intervention 1 goal intervention scheduled/documente d in this visit House Keeping Disciplines: [facility] 03/25/2022 Active 1 goal linked to scheduled/documente d intervention 9 goal interventions scheduled/documente d in this visit Personal Care Disciplines: [facility] 03/25/2022 Active 1 goal linked to scheduled/documente d intervention 2 goal interventions scheduled/documente d in this visit Goals Goal Associated Problem Outcome Goal Met? Visit Notes Screenings will be perfomed by aide as directed A Required Screenings No Additional duties for patient will be perfomed by aide as directed Other No Aide to assist with clean-up of patient's environment as directed House Keeping No Patient's personal care will be completed by aide as directed Personal Care No Interventions Intervention Associated Problem/Goal Status Variance Visit Notes COVID-19 (ALMANZA VIRUS) SCREEN QUESTIONS Description: Complete COVID-19 (Almanza virus) screening questions Problem:A Required Screenings Goal:Screenings will be perfomed by aide as directed Completed SHOP FOR GROCERIES Description: Shop for Groceries Problem:Other Goal:Additional duties for patient will be perfomed by aide as directed Scheduled with variance N/A MOP Description: Mop Problem:House Keeping Goal:Aide to assist with clean-up of patient's environment as directed Completed [facility] KITCHEN AREA Description: Straighten kitchen area Problem:House Keeping Goal:Aide to assist with clean-up of patient's environment as directed Completed STRAIGHTEN IMMEDIATE CARE AREA Description: Straighten immediate care area Problem:House Keeping Goal:Aide to assist with clean-up of patient's environment as directed Completed SWEEP Description: Sweep Problem:House Keeping Goal:Aide to assist with clean-up of patient's environment as directed Completed CLEAN BATHROOM Description: Clean Bathroom Problem:House Keeping Goal:Aide to assist with clean-up of patient's environment as directed Completed LINEN CHANGE AND MAKE BED Description: Linen Change and Make Bed Problem:House Keeping Goal:Aide to assist with clean-up of patient's environment as directed Completed VACUUM Description: Vacuum Problem:House Keeping Goal:Aide to assist with clean-up of patient's environment as directed Scheduled with variance N/A DUST Description: Dust Problem:House Keeping Goal:Aide to assist with clean-up of patient's environment as directed Scheduled with variance N/A DO LAUNDRY Description: Do Laundry Problem:House Keeping Goal:Aide to assist with clean-up of patient's environment as directed Scheduled with variance N/A LOTION AND OR POWDER Description: Lotion and or Powder Problem:Personal Care Goal:Patient's personal care will be completed by aide as directed Scheduled with variance Patient refused BATHE SHOW ASSISTING ONLY NEEDED USING ASSISTIVE DEVICES Description: Bathe show assisting only as needed using assistive devices Problem:Personal Care Goal:Patient's personal care will be completed by aide as directed Scheduled with variance Patient refused documented in this encounter Care Teams Network Support Manager Relationship Specialty Start Date End Date Hoang Castellanos, WATER TANKER DRIVER [address] [place] [address] PCP - General Family Medicine 03/12/20 documented as of this encounter
--- OUTSIDE RECORDS SUMMARY | 2024-02-22 00:45 | XMS_ITS | Encounter Summary ---
Author Organization [facility] Address [facility] [place] [address] Care Team Providers Care Home And Family Living Professor Name Role Phone Hoang aCstellanos APRN Primary Care Provider Encounter Details Date Type Department Care Team (Late st Contact Info) Description 05/03/2022 12:00 PM EDT Home Care Visit [facility] for Care [address] [place] [phone] Kimberly Austin, REGIONAL DRIVER LT SHEET CUTTER HOME VISIT Social History Tobacco Use Types [...] place to sleep or slept in a residential (including now)? No 03/23/2022 Sex and Gender Information Value Date Recorded Sex Assigned at Not on file Gender Identity Not on file Sexual Orientation Not on file documented as of this encounter Plan of Treatment Not on file documented as of this encounter Visit Diagnoses Not on filedocumented in this encounter Home Health Visit - Care Plan Visit Details Visit Type -LTC SHEET CUTTER Home Vis it Discipline -Home Health Aide Problems Problem Description Start Date Status Goals Interve ntions A Required Screenings Disciplines: [facility] 03/25/2022 Active 1 goal linked to scheduled/documente d intervention 1 goal intervention scheduled/documente d in this visit Other Disciplines: [facility] 03/25/2022 Active 1 goal linked to scheduled/documente d intervention 1 goal intervention scheduled/documente d in this visit House Keeping Disciplines: [facility] 03/25/2022 Active 1 goal linked to scheduled/documente d intervention 9 goal interventions scheduled/documente d in this visit Personal Care Disciplines: [facility] 03/25/2022 Active 1 goal linked to [...] of patient's environment as directed Completed STRAIGHTEN KITCHEN AREA Description: Straighten kitchen area Problem:House [...] clean-up of patient's environment as directed Completed DUST Description: Dust Problem:House Keeping Goal:Aide to assist with clean-up of patient's environment as directed Completed CLEAN BATHROOM Description: Clean Bathroom Problem:House Keeping Goal:Aide to assist with clean-up of patient's environment as directed Completed LINEN CHANGE AND MAKE BED Description: Linen Change and Make Bed Problem:House Keeping Goal:Aide to assist with clean-up of patient's environment as directed Completed DO LAUNDRY Description: Do Laundry Problem:House Keeping [...] refused documented in this encounter Care Teams Home And Family Living Professor Relationship Specialty Start Date End Date Hoang Castellanos, DEALER DEVELOPMENT MANAGER [address] [place] [address] PCP - General Family Medicine 03/12/20 documented as of this encounter
--- OUTSIDE RECORDS SUMMARY | 2024-02-22 00:45 | XMS_ITS | Encounter Summary ---
Author Organization [facility] [place] [address] Care Team Providers Care Postal Service Window Clerk Name Role Phone Hoang Castellanos APRN Primary Care Provider Reason for Visit * Reason Comments Medication Refill Encounter Details Date Type Department Care Team (Late st Contact Info) Description 05/07/2022 Refill Primary Care at [facility] [address] [facility] [place] [phone] Hoang Castellanos APRN [address] [facility] [address] Social History Tobacco Use Types Packs/Day Years [...] place to sleep or slept in a intermediate (including now)? No 03/23/2022 Sex and Gender Information Value Date Recorded Sex Assigned at Not on file Gender Identity Not on file Sexual Orientation Not on file documented as of this encounter Miscellaneous Notes * Telephone Encounter - Jeannie Luciano RN - 05/07/2022 1:35 PM EDT PCP: Hoang Castellanos APRN Last Visit: With PCP: 03/23/2022 In Primary Care: 03/23/2022 (All medications/supplies require visit within the last 12 months except for: Allergy (24 mo), OralContraceptives (24 mo), Diabetes Meds (6 mo)) Upcoming Appointment: Future Appointments Date Time Provider Department Center 05/10/2022 To Be Determined Kimberly Austin None 05/11/2022 To Be Determined Kimberly Austin None 05/12/2022 To Be Determined Kimberly AustinHCM None 05/13/2022 9:45 AM APD PRIMARY CARE NURSE [facility] 05/13/2022 To Be Determined Kimberly AustinM None 05/14/2022 To Be Determined Norman, Kimberly M [facility] None 05/17/2022 To Be Determined Norman, Kimberly M [facility] None 05/18/2022 To Be Determined Norman, Kimberly M [facility] None 05/19/2022 To Be Determined Norman, Kimberly M [facility] None 05/20/2022 8:00 AM [facility] DX ROOM 2 MH Xray [facility] Rad 05/20/2022 9:00 AM Freddy Dolan [place] [facility] [id number] [facility] 05/20/2022 To Be Determined Norman, Kimberly M [facility] None 05/21/2022 To Be Determined Norman, Kimberly M [facility] None 05/24/2022 To Be Determined Norman, Kimberly M [facility] None 05/25/2022 To Be Determined Norman, Kimberly M [facility] None 05/26/2022 To Be Determined Norman, Kimberly M [facility] None 2022 To Be Determined Norman, Kimberly M [facility] None 05/28/2022 To Be Determined Norman, Kimberly M [facility] None 05/31/2022 To Be Determined Norman, Kimberly M [facility] None 06/01/2022 To Be Determined Norman, Kimberly M [facility] None 06/02/2022 To Be Determined Norman, Kimberly M [facility] None 06/03/2022 To Be Determined Norman, Kimberly M [facility] None 06/04/2022 To Be Determined Norman, Kimberly M [facility] None 06/07/2022 To Be Determined Norman, Kimberly M [facility] None 06/08/2022 To Be Determined Norman, Kimberly M [facility] None 06/09/2022 To Be Determined Norman, Kimberly M [facility] None 06/10/2022 To Be Determined Norman, Kimberly M [facility] None 06/11/2022 To Be Determined Norman, Kimberly M [facility] None 06/14/2022 To Be Determined Norman, Kimberly M [facility] None 06/15/2022 To Be Determined Norman, Kimberly M [facility] None 06/16/2022 To Be Determined Norman, Kimberly M [facility] None 06/18/2022 To Be Determined Norman, Kimberly M [facility] None 06/21/2022 To Be Determined Kimberly Austin [facility] None 06/22/2022 To Be Determined Kimberly Austin [facility] None 06/23/2022 To Be Determined [facility] If no appointment recommendation at last visit - Per PCP return in about 1 yr (around 03/23/23) for in person CDR Requested Prescriptions Pending Prescriptions Disp Refills ??? lamoTRIgine (LaMICtal) 200 mg Tablet [Pharmacy Med Name: lamoTRIgine 200 MG Tablet] 28 tablet 11 Sig: TAKE ONE (1) TABLET BY MOUTH EVERY DAY ??? levothyroxine (Synthroid) 50 mcg Tablet [Pharmacy Med Name: Levothyroxine Sodium 50 MCG Tablet]28 tablet 11 Sig: TAKE ONE (1) TABLET BY MOUTH EVERY DAY Last refill date: lamotrigine 06/09/21 Levothyroxine 06/09/21 LAB Requirements: TSH (Thyroid Meds) Lab Results Component Value Date TSH 2.42 03/31/2022 TSH must be in the last 12 months If TSH not in normal range (0.8 - 4.15), pend Special Considerations: THYROID: Must be on med for more than 6 months without any changes All medications are refilled for 90 day supply with 3 Refills unless noted below: Oral Contraceptives: 84 day supply with 4 refills Diabetes Meds: 90 day supply with 1 refill documented in this encounter Plan of Treatment Not on file documented as of this encounter Visit Diagnoses Not on filedocumented in this encounter Care Teams Postal Service Window Clerk Relationship Specialty Start Date End Date Hoang Castellanos APRN [address] [facility] [place] [address] PCP - General Family Medicine 03/12/20 documented as of this encounter
--- OUTSIDE RECORDS SUMMARY | 2024-02-22 00:45 | XMS_ITS | Encounter Summary ---
Author Organization [facility] [place] [address] Care Team Providers Care Public Safety Dispatcher Name Role Phone Hoang Castellanos APRN Primary Care Provider Encounter Details Date Type Department Care Team (Late st Contact Info) Description 06/04/2022 Telephone Primary Care at [facility] [address] [facility] [place] [phone] Jeannie Luciano, RN Social History Tobacco Use Types Packs/Day Years [...] place to sleep or slept in a nursing home (including now)? No 03/23/2022 Sex and Gender Information Value Date Recorded Sex Assigned at Not on file Gender Identity Not on file Sexual Orientation Not on file documented as of this encounter Miscellaneous Notes * Telephone Encounter - Jeannie Luciano RN - 06/04/2022 11:16 AM EST Message received from Kasia at [facility] where Jeannie has moved to. They received a sign medication list but Jeannie arrived with 2 medications not on our list. They are Depakote ER 250mg and Prozac 20mg. She asked if Jeannie is supposed to be on both Sertraline and Prozac. Returned call to [facility] and spoke with felicita Farr who asked us to add those medications to Jeannie's medication list and have the list signed by Hoang Castellanos APRN. As those are not prescribed by this office, asked Chika to reach out to the provider who is prescribing those for a signed order but I would send message to Hoang Castellanos APRN. documented in this encounter Plan of Treatment Not on file documented as of this encounter Visit Diagnoses Not on filedocumented in this encounter Care Teams Public Safety Dispatcher Relationship Specialty Start Date End Date Hoang Castellanos APRN [address] [place] [address] PCP - General Family Medicine 03/12/20 documented as of this encounter
--- OUTSIDE RECORDS SUMMARY | 2024-02-22 00:45 | XMS_ITS | Encounter Summary ---
Author Organization [facility] Address [facility] [place] [address] Care Team Providers Care Learning And Development Specialist Name Role Phone Hoang Castellanos APRN Primary Care Provider Encounter Details Date Type Department Care Team (Latest Contact Info) Description 05/26/2022 Travel Social History Tobacco Use Types Packs/Day Years [...] have money to get more. Often true 08/ PRAPARE - Transportation Answer Date Re corded [...] place to sleep or slept in a fci (including now)? No 03/23/2022 Sex and Gender Information Value Date Recorded Sex Assigned at Not on file Gender Identity Not on file Sexual Orientation Not on file documented as of this encounter Plan of Treatment Not on file documented as of this encounter Visit Diagnoses Not on filedocumented in this encounter Care Teams Learning And Development Specialist Relationship Specialty Start Date End Date Hoang Castellanos, CURATOR HERBARIUM [address] [place] [address] PCP - General Family Medicine 03/12/20 documented as of this encounter
--- OUTSIDE RECORDS SUMMARY | 2024-02-22 00:45 | XMS_ITS | Encounter Summary ---
Author Organization [facility] Address [facility] [place] [address] Care Team Providers Care Supervisor Tower Name Role Phone Hoang Castellanos APRN Primary Care Provider Encounter Details Date Type Department Care Team (Late st Contact Info) Description 05/07/2022 11:15 AM EDT Home Care Visit [facility] for Care [address] [place] [phone] Kimberly Austin, HIGHWAY PAINTER LT FIELD STAFF HOME VISIT Social History Tobacco Use Types [...] place to sleep or slept in a penitentiary (including now)? No 03/23/2022 Sex and Gender Information Value Date Recorded Sex Assigned at Not on file Gender Identity Not on file Sexual Orientation Not on file documented as of this encounter Plan of Treatment Not on file documented as of this encounter Visit Diagnoses Not on filedocumented in this encounter Home Health Visit - Care Plan Visit Details Visit Type -LTC FIELD STAFF Home Vis it Discipline -Home Health Aide Problems Problem Description Start Date Status Goals Interve ntions A Required Screenings Disciplines: [facility] 03/25/2022 Active 1 goal linked to scheduled/documente d intervention 1 goal intervention scheduled/documente d in this visit Other Disciplines: [facility] 03/25/2022 Active 1 goal linked to scheduled/documente d intervention 1 goal intervention scheduled/documente d in this visit House Keeping Disciplines: [facility] 03/25/2022 Active 1 goal linked to scheduled/documente d intervention 9 goal interventions scheduled/documente d in this visit Personal Care Disciplines: [facility] 03/25/2022 Active 1 goal linked to [...] be perfomed by aide as directed Completed MOP Description: Mop Problem:House Keeping Goal:Aide to [...] refused documented in this encounter Care Teams Supervisor Tower Relationship Specialty Start Date End Date Hoang Castellanos, CHANGE DIRECTOR [address] [place] [address] PCP - General Family Medicine 03/12/20 documented as of this encounter
--- OUTSIDE RECORDS SUMMARY | 2024-02-22 00:45 | XMS_ITS | Encounter Summary ---
Author Organization [facility] Address [facility] [place] [address] Care Team Providers Care Seed Technician Name Role Phone Hoang Castellanos APRN Primary Care Provider Encounter Details Date Type Department Care Team (Latest Contact Info) Description 05/19/2022 Travel Social History Tobacco Use Types Packs/Day [...] on filedocumented in this encounter Care Teams Seed Technician Relationship Specialty Start Date End Date Hoang Castellanos, FACSIMILE OPERATOR [address] [place] [address] PCP - General Family Medicine 03/12/20 documented as of this encounter
--- OUTSIDE RECORDS SUMMARY | 2024-02-22 00:45 | XMS_ITS | Encounter Summary ---
Author Organization [facility] [place] [address] Care Team Providers Care Internet Systems Administrator Name Role Phone Hoang Castellanos APRN Primary Care Provider Encounter Details Date Type Department Care Team (Late st Contact Info) Description 05/20/2022 Telephone Primary Care at [facility] [place] [phone] Jeannie Luciano, RN Social History Tobacco Use [...] place to sleep or slept in a fpc (including now)? No 03/23/2022 Sex and Gender Information Value Date Recorded Sex Assigned at Not on file Gender Identity Not on file Sexual Orientation Not on file documented as of this encounter Miscellaneous Notes * Telephone Encounter - Jeannie Luciano RN - 05/26/2022 9:35 AM EDT Pt notified, TH made for 130p today. * Telephone Encounter - Hoang Castellanos APRN - 05/26/2022 8:31 AM EDT Received a 3 page fax on my desk. Unsure what they need me to complete. Please book HV at 1:30 today so I can review. * Telephone Encounter - Devi Mccormick RN - 05/25/2022 2:29 PM EDT Received fax, placed on Koffi Castellanos desk, no available appointments for this week. * Telephone Encounter - Hoang Castellanos APRN - 05/20/2022 4:21 PM EDT Happy to look at it-might want to set up an appt next week w patient anyways- assuming it could be over [facility]? * Telephone Encounter - Jeannie Luciano RN - 05/20/2022 4:01 PM EDT Message received from Kimberly with [employer] asking if Hoagn Castellanos APRN would complete paperwork for her to continue in the LTC Choices for Care with the [facility]. Jeannie will be moving very soon to an assisted living facility and that program will cover her expenses there. Jeannie is moving 05/31/22. Kimberly said this is normally done with a nurse through their program, but they are without a nurse todo this at this time. Kimberly will fax the paper to office on 05/25/22. She is aware, depending on the questions asked, we may need her to come in. Note routed to PCP. documented in this encounter Plan of Treatment Not on file documented as of this encounter Visit Diagnoses Not on filedocumented in this encounter Care Teams Internet Systems Administrator Relationship Specialty Start Date End Date Hoang Castellanos APRN [address] [place] [address] PCP - General Family Medicine 03/12/20 documented as of this encounter
--- OUTSIDE RECORDS SUMMARY | 2024-02-22 00:45 | XMS_ITS | Encounter Summary ---
Author Organization [facility] Address [facility] [place] [address] Care Team Providers Care Belt Glass Sander Name Role Phone Hoang Castellanos APRN Primary Care Provider [phone] Encounter Details Date Type Department Care Team (Late st Contact Info) Description 05/04/2022 9:00 AM EDT Home Care Visit [facility] for Care [address] [place] [phone] Kimberly Austin, OFFSET PLATEMAKER LT BOARD HAMMER OPERATOR HOME VISIT Social History Tobacco Use Types [...] place to sleep or slept in a assisted (including now)? No 03/23/2022 Sex and Gender Information Value Date Recorded Sex Assigned at Not on file Gender Identity Not on file Sexual Orientation Not on file documented as of this encounter Plan of Treatment Not on file documented as of this encounter Visit Diagnoses Not on filedocumented in this encounter Home Health Visit - Care Plan Visit Details Visit Type -LTC BOARD HAMMER OPERATOR Home Vis it Discipline -Home Health Aide Problems Problem Description Start Date Status Goals Interve ntions A Required Screenings Disciplines: [facility] 03/25/2022 Active 1 goal linked to scheduled/documente d intervention 1 goal intervention scheduled/documente d in this visit Other Disciplines: [facility] 03/25/2022 Active 1 goal linked to scheduled/documente d intervention 1 goal intervention scheduled/documente d in this visit House Keeping Disciplines: [facility] 03/25/2022 Active 1 goal linked to scheduled/documente d intervention 9 goal interventions scheduled/documente d in this visit Personal Care Disciplines: [facility] 03/25/2022 Active 1 goal linked to [...] clean-up of patient's environment as directed Completed [facility] KITCHEN AREA Description: [facility] kitchen area Problem:House Keeping Goal:Aide to assist [...] refused documented in this encounter Care Teams Belt Glass Sander Relationship Specialty Start Date End Date Hoang Castellanos APRN [address] [place] [address] PCP - General Family Medicine 03/12/20 documented as of this encounter
--- OUTSIDE RECORDS SUMMARY | 2024-02-22 00:45 | XMS_ITS | Encounter Summary ---
Author Organization [facility] Address [facility] [place] [address] Care Team Providers Care Weight Recorder Name Role Phone Hoang Castellanos APRN Primary Care Provider [phone] Reason for Visit * Reason Comments Medication Refill Encounter Details Date Type Department Care Team (Late st Contact Info) Description 05/07/2022 [place] [phone] Michael Espinoza MD [facility] [place] [address] Social History Tobacco Use Types Packs/Day Years [...] place to sleep or slept in a senior care (including now)? No 03/23/2022 Sex and Gender Information Value Date Recorded Sex Assigned at Not on file Gender Identity Not on file Sexual Orientation Not on file documented as of this encounter Plan of Treatment Not on file documented as of this encounter Visit Diagnoses Not on filedocumented in this encounter Care Teams Weight Recorder Relationship Specialty Start Date End Date Hoang Castellanos APRN [address] [place] [address] PCP - General Family Medicine 03/12/20 documented as of this encounter
--- OUTSIDE RECORDS SUMMARY | 2024-02-22 00:45 | XMS_ITS | Encounter Summary ---
Author Organization [facility] [place] [address] Care Team Providers Care Music Teacher Name Role Phone Hoang Castellanos APRN Primary Care Provider Encounter Details Date Type Department Care Team (Late st Contact Info) Description 12/31/2022 Orders [place] [phone] Priya Charles, NETWORK ADMINISTRATOR 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
--- OUTSIDE RECORDS SUMMARY | 2024-02-22 00:45 | XMS_ITS | Encounter Summary ---
Author Organization [facility] [place] [address] Care Team Providers Care Bill Adjuster Name Role Phone Hoang Castellanos APRN Primary Care Provider Encounter Details Date Type Department Care Team (Latest Contact Info) Description 05/13/2022 9:45 AM EDT Clinical Support Primary Care at [facility] [place] [address] Need for vaccination Social History Tobacco Use Types Packs/Day Years [...] place to sleep or slept in a longterm (including now)? No 03/23/2022 Sex and Gender Information Value Date Recorded Sex Assigned at Not on file Gender Identity Not on file Sexual Orientation Not on file documented as of this encounter Progress Notes * Bhavani Watters, RMA - 05/13/2022 9:45 AM EDT Flu Vaccine [id number] Age Considerations Vaccine Name Pediatric [] 6 month to 18 yrs If patient is receiving their first flu vaccination and is below the age 7 years they will require a booster in 1 month. Fluarix State vaccine only [] 2 yrs -18 yrs DO NOT GIVE IF: ??? Dx of Asthma ??? Children age 2-4 yrs with episodes of wheezing within the last 12 months ??? Patient currently has moderate nasal congestion ??? Immunosuppressed conditions or lives in a home with someone who is immunocompromised ??? If taking aspirin or asprin containing products Flumist State vaccine only Adult [x] 19 yrs and older None Flulaval [] 65 yrs and older Should only be given to those patients who are 65 yrs and older Fluzone The information was supplied by patient. Have you had any of the following: History of Guillian-Theresa Syndrome, allergy to eggs, or allergicreaction to a previous dose of influenza, or fever greater than 101 degrees in the last 24 hours? no. Influenza immunization was administered as documented. . Patient here for bivalent covid booster. Are you 60 days past your last covid vaccine? yes If no, reschedule appointment. Which vaccine does the patient want? Pfizer documented in this encounter Plan of Treatment Not on file documented as of this encounter Visit Diagnoses Diagnosis Need for vaccination Need for prophylactic vaccination and inoculation against unspecified single disease documented in this encounter Care Teams Bill Adjuster Relationship Specialty Start Date End Date Hoang Castellanos, MECHANIC FOREMAN [address] [place] [address] PCP - General Family Medicine 03/12/20 documented as of this encounter
--- OUTSIDE RECORDS SUMMARY | 2024-02-22 00:45 | XMS_ITS | Encounter Summary ---
Author Organization [facility] Address [facility] [place] [address] Care Team Providers Care Police Crime Scene Technician Name Role Phone Hoang Castellanos APRN Primary Care Provider Encounter Details Date Type Department Care Team (Late st Contact Info) Description 05/05/2022 12:00 PM EDT Home Care Visit [facility] [address] [place] [id number] Kimberly Austin, LAB AID LT ORDER ENTRY SPECIALIST HOME VISIT Social History Tobacco Use Types [...] Care Plan Visit Details Visit Type -LTC ORDER ENTRY SPECIALIST Home Vis it Discipline -Home Health Aide Problems Problem Description Start Date Status Goals Interve ntions A Required Screenings Disciplines: [facility] 03/25/2022 Active 1 goal linked to scheduled/documente d intervention 1 goal intervention scheduled/documente d in this visit Other Disciplines: [facility] 03/25/2022 Active 1 goal linked to scheduled/documente d intervention 1 goal intervention scheduled/documente d in this visit House Keeping Disciplines: [facility] 03/25/2022 Active 1 goal linked to scheduled/documente d intervention 9 goal interventions scheduled/documente d in this visit Personal Care Disciplines: [facility] 03/25/2022 Active 1 goal linked to scheduled/documente [...] clean-up of patient's environment as directed Completed [facility] Description: Straighten kitchen area Problem:House [...] refused documented in this encounter Care Teams Police Crime Scene Technician Relationship Specialty Start Date End Date Hoang Castellanos, SENIOR CONTRACTS ADMINISTRATOR [address] [place] [address] PCP - General Family Medicine 03/12/20 documented as of this encounter
--- OUTSIDE RECORDS SUMMARY | 2024-02-22 00:45 | XMS_ITS | Encounter Summary ---
Author Organization [facility] [place] [address] Care Team Providers Care Medical Records Secretary Name Role Phone Hoang Castellanos APRN Primary Care Provider [phone] Reason for Visit * Consultation (Routine) - Closed Specialty Diagnoses / Procedures Referred By Vanita t Referred To Contact Hematology and Oncology Diagnoses Macrocytosis Anemia, unspecified type Jolly Davenport APRN [address] [place] [address] [facility] [address] [place] [address] Referral ID Status Reason Start Date Expiration Date V isits Requested Visits Authorized [id number] Closed Consult, Test & Treat PCP Updated and/or Approved 03/31/2023 03/30/2024 12 12 Encounter Details Date Type Department Care Team (Late st Contact Info) Description 04/14/2023 3:00 PM EDT Office Visit Hematology/Oncology at [address] [phone] Matthew Ortiz MD [facility] [address] HEMATOLOGY [place] [address] Macrocytosis without anemia Social History Tobacco Use Types Packs/Day Years [...] like food, housing, medical care, and heating? Not hard at all 04/14/2023 Exercise Vital Sign Answer Date Recorde d [...] you got the money to buy more. Never true 04/14/20 23 Within the past 12 months, t he food you bought just didn't last and you didn't have money to get more. Never true 04/14/2023 PRAPARE - Transportation Answer Date Re corded In the past 12 months, has l ack of transportation kept you from medical appointments or from getting medications? No 03/26 In the past 12 months, has l ack of transportation kept you from meetings, work, or from getting things needed for daily living? No 04/14/2023 Housing Stability Vital Sign Answer Aaron e Recorded In the last 12 months, was t here a time when you were not able to pay the mortgage or rent on time? No 04/14/2023 In the last 12 months, how many places have you lived? 2 04/14/2023 In the last 12 months, was t here a time when you did not have a steady place to sleep or slept in a jail (including now)? No 04/14/2023 Sex and Gender Information Value Date Recorded Sex Assigned at Not on file Gender Identity Not on file Sexual Orientation Not on file documented as of this encounter Last Filed Vital Signs Vital Sign Reading Time Taken Comments Blood Pressure 144/93 04/14/2023 3:08 PM EDT Pulse 52 04/14/2023 3:08 PM EDT Temperature 36.3 ??C (97.3 ??F) 04/14/2023 3:08 PM ED T Respiratory Rate 20 04/14/2023 3:08 PM EDT Oxygen Saturation 100% 04/14/2023 3:08 PM EDT Inhaled Oxygen Concentration - - Weight 96.2 kg (212 lb) 04/14/2023 3:08 PM EDT Height 161.5 cm (5' 3.58) 04/14/2023 3:08 PM ED T Body Mass Index 36.87 04/14/2023 3:08 PM EDT documented in this encounter Progress Notes * Matthew Ortiz MD - 04/14/2023 3:00 PM EDT Subjective Patient ID: Jeannie Rico is a 62 y.o. female. HPI The patient is a 62-year-old female referred by Jolly Davenport APRN in evaluation of macrocytosis. I had a chance to review the available records including old computer records at [facility] The patient has multiple medical problems as noted below. She did have gastric bypass and has been on a variety of symptoms including iron and B12 as well as multivitamins. She does not tolerate oraliron very well. She has been iron deficient in the past but most recent iron studies have been adequate. She is referred to me because of the persistent macrocytosis. Her MCV has varied from 96-100. The laboratory locally reports that those are elevated MCVs. She has had B12, folate, thyroid studies, SPEP, reticulocyte count and evaluation of hemolysis. Allhave been normal. The patient has no new symptoms. She has not been anemic. Her neutrophils occasionally are mildly elevated but not persistently. I did find a report of a CBC from 1995 with an MCV of 94 Patient Active Problem List Diagnosis Code Cervicalgia M54.2 Chronic pain G89.29 Lumbago M54.50 GERD (gastroesophageal reflux disease) K21.9 Anxiety F41.9 Depression F32.A Post traumatic stress disorder (PTSD) F43.10 Hidradenitis suppurativa L73.2 Osteoporosis M81.0 Borderline personality disorder F60.3 Asthma J45.909 Benign essential hypertension I10 Bulimia F50.2 Chronic obstructive pulmonary disease J44.9 Constipation K59.00 History of diabetes mellitus, type II Z86.39 Hyperlipidemia E78.5 Obstructive sleep apnea (adult) (pediatric) G47.33 Osteoarthrosis M19.90 Seizures R56.9 Coronary artery disease I25.10 Headache R51.9 Bipolar disorder F31.9 Hypothyroidism, acquired E03.9 Vitamin D deficiency E55.9 Vitamin B12 deficiency E53.8 Cataract of right eye H26.9 Right leg weakness R29.898 Chronic pain of right ankle M25.571, G89.29 Bilateral leg edema R60.0 Cervical spinal stenosis M48.02 Arthrodesis present Z98.1 Current Outpatient Medications: famotidine (Pepcid) 20 mg tablet, Take 20 mg by mouth daily., Disp: , Rfl: FLUoxetine (PROzac) 20 mg capsule, Take 20 mg by mouth daily., Disp: , Rfl: divalproex EC (Depakote) [address] tablet, Take 125 mg by mouth 2 times daily., Disp: , Rfl: calcium citrate (Calcitrate) 200 mg (950 mg) Tablet, TAKE TWO (2) TABLETS BY MOUTH THREE TIMES A DAY, Disp: 180 tablet, Rfl: 3 cholecalciferol (Vitamin D) 1,000 unit Tablet, TAKE THREE (3) TABLETS (3000IU) BY MOUTH EVERY DAY (PM), Disp: 84 tablet, Rfl: 11 lamoTRIgine (LaMICtal) 200 mg Tablet, TAKE ONE (1) TABLET BY MOUTH EVERY DAY, Disp: 28 tablet, Rfl:11 levothyroxine (Synthroid) 50 mcg Tablet, TAKE ONE (1) TABLET BY MOUTH EVERY DAY, Disp: 28 tablet, Rfl: 11 ibuprofen (Advil) 800 mg Tablet, TAKE ONE (1) TABLET BY MOUTH EVERY 8HRS NEEDED FOR PAIN - SKIP ASPIRIN IF USING THIS- *CALL TO REFILL* (VIAL) (Patient taking differently: Take 400 mg by mouth Daily at Noon.), Disp: 90 tablet, Rfl: 5 Advair Diskus 500-50 mcg/dose Disk with Device, USE 1 INHALATION TWICE A DAY, Disp: 60 each, Rfl: 11 Spiriva Respimat 2.5 mcg/actuation Mist, INHALE TWO (2) PUFFS INTO THE LUNGS NIGHTLY, Disp: 3 each,Rfl: 3 cyanocobalamin, Vitamin B-12, (Vitamin B-12) 1,000 mcg Tablet, TAKE ONE (1) TABLET BY MOUTH ONCE WEEKLY (PM) (Patient taking differently: Take 1,000 mcg by mouth daily.), Disp: 4 tablet, Rfl: 11 isosorbide mononitrate CR (Imdur) 30 mg Tablet Sustained Release 24 hr, Take 1 tablet by mouth daily., Disp: 28 tablet, Rfl: 11 albuteroL (Ventolin HFA) 90 mcg/actuation HFA Aerosol Inhaler, INHALE 1 TO 2 PUFFS EVERY SIX HOURS NEEDED *CALL TO REFILL*, Disp: 18 g, Rfl: 2 diclofenac (Voltaren) 1 % Gel, Apply 2-4g daily., Disp: 100 g, Rfl: 5 Lactobacillus acidophilus 500 million cell Capsule, Take 2 capsules by mouth 2 times daily., Disp: 120 capsule, Rfl: 11 tiZANidine (Zanaflex) 4 mg Tablet, Take 1 tablet by mouth every 6 hours as needed. (Patient taking differently: Take 4 mg by mouth nightly.), Disp: 56 tablet, Rfl: 3 polyethylene glycoL (Miralax) 17 gram Powder in Packet, Take 17 g by mouth daily as needed., Disp: 14 each, Rfl: 0 acetaminophen (Tylenol) 500 mg Tablet, Take 2 tablets by mouth every 6 hours., Disp: 30 tablet, Rfl: 1 aspirin EC 81 mg Tablet, Delayed Release (E.C.), Take 1 tablet by mouth daily., Disp: 30 tablet, Rfl: 5 atorvastatin (Lipitor) 40 mg Tablet, TAKE ONE (1) TABLET BY MOUTH EVERY DAY, Disp: 28 tablet, Rfl: 11 clonazePAM (KlonoPIN) 0.5 mg Tablet, Take 0.5 mg by mouth nightly., Disp: , Rfl: multivitamin (THERAGRAN) Tablet, Take 1 tablet by mouth daily., Disp: , Rfl: MARIJUANA ORAL, Take 1 Dose by mouth 2 times daily., Disp: , Rfl: nicotine (Nicoderm CQ) 14 mg/24 hr Patch 24 hr, APPLY ONE (1) PATCH EVERY DAY (Patient not taking: Reported on 04/14/2023), Disp: 28 patch, Rfl: 3 Miconazole Powder, 1 Application by [facility].(Non-Drug; Combo Route) route 2 times daily., Disp: 100 g,Rfl: 3 nitroGLYcerin (Nitrostat) 0.4 mg Tablet, Sublingual, Place 1 tablet under the tongue every 5 minutes as needed for Chest pain., Disp: 30 tablet, Rfl: 1 lidocaine (Lidoderm) 5% Adhesive Patch, Medicated, Place 2 patches onto affected area for 12 hours then remove for 12 hours, Disp: 60 patch, Rfl: 5 senna-docusate (Pericolace) 8.6-50 mg Tablet, Take 2 tablets by mouth 2 times daily., Disp: 60 tablet, Rfl: 11 ferrous sulfate (FeroSuL) 325 mg (65 mg iron) Tablet, Take 1 tablet by mouth three times a week. (Patient not taking: Reported on 04/14/2023), Disp: 12 tablet, Rfl: 11 omeprazole (PriLOSEC) 20 mg Capsule, Delayed Release(E.C.), TAKE ONE (1) CAPSULE BY MOUTH TWICE A DAY 30 MIN BEFORE BREKAFAST AND IN THE EVENING (Patient not taking: Reported on 04/14/2023), Disp: 56 capsule, Rfl: 11 Miscellaneous Medical Supply Misc, 1 walker on wheels with seat, Disp: 1 each, Rfl: 0 Allergies Allergen Reactions Morphine Shortness Of Breath Sumatriptan Hives Other reaction(s): Hives and Rash (Urticaria) Oxycodone Other (See Comments) drunk feeling, dizzy Oxycodone-Acetaminophen Other (See Comments) dizziness, feels drunk Other reaction(s): Unknown Chantix [Varenicline] psychotic Imitrex [Sumatriptan Succinate] Hives Prednisone Other reaction(s): aggitation Social History Socioeconomic History Marital status: Spouse name: Not on file Number of children: Not on file Years of education: Not on file Highest education level: Not on file Occupational History Not on file Tobacco Use Smoking status: Every Day Types: Cigarettes Last attempt to quit: 07/25/2021 Years since quittin.7 Smokeless tobacco: Never Tobacco comments: smoking 3 cigarettes some days Vaping Use Vaping Use: Never used Substance and Sexual Activity Alcohol use: No Comment: not drank in 24 years Drug use: Yes Frequency: 21.0 times per week Types: Marijuana Comment: 3 times per day, edibles Sexual activity: Not on file Other Topics Concern Do You live alone? No Tobacco in Home Not Asked Social History Narrative Living w , Brandon. Social Determinants of Health Financial Resource Strain: Low Risk Difficulty of Paying Living Expenses: Not hard at all Food Insecurity: No Food Insecurity Worried About Running Out of Food in the Last Year: Never true Ran Out of Food in the Last Year: Never true Transportation Needs: No Transportation Needs Lack of Transportation (Medical): No Lack of Transportation (Non-Medical): No Physical Activity: Not on file Housing Stability: Low Risk Unable to Pay for Housing in the Last Year: No Number of Places Lived in the Last Year: 2 Unstable Housing in the Last Year: No Review of Systems Constitutional: Negative for fatigue, fever and unexpected weight change. HENT: Negative for nosebleeds. Respiratory: Negative for cough and shortness of breath. Cardiovascular: Negative for chest pain and palpitations. Gastrointestinal: Negative for abdominal pain and diarrhea. Musculoskeletal: Negative for back pain. Skin: Negative for rash. Neurological: Negative for speech difficulty. Hematological: Negative for adenopathy. Does not bruise/bleed easily. All other systems reviewed and are negative. Objective BP (!) 144/93 (Patient Position: Sitting) Pulse 52 Temp 36.3 ??C (97.3 ??F) (Temporal) Resp 20 Ht 161.5 cm (5' 3.58) Wt 96.2 kg (212 lb) LMP (LMP Unknown) SpO2 100% BMI 36.87 kg/m?? Physical Exam Constitutional: Appearance: She is not ill-appearing. HENT: Mouth/Throat: Mouth: Mucous membranes are moist. Eyes: General: No scleral icterus. Pulmonary: Effort: Pulmonary effort is normal. Skin: Findings: No rash. Neurological: Mental Status: She is alert and oriented to person, place, and time. Assessment and Plan 62-year-old female who has had a persistent macrocytosis by laboratory reports since 1995. I do not think she has a pathologic condition. I think this is just normal for her. Historically we have considered a normal MCV to be 80-100. Some labs report a lower MCV probably because they are normalizing their local values based on the normal values which include iron deficient just. I would not work this up further. She does not need monitoring for her CBC. I did provide reassurance. She does not need further hematologic follow-up. documented in this encounter Plan of Treatment Not on file documented as of this encounter Visit Diagnoses Diagnosis Macrocytosis without anemia Other specified diseases of blood and blood-forming organs documented in this encounter Care Teams Medical Records Secretary Relationship Specialty Start Date End Date Hoang Castellanos, COMMERCIAL HOUSEKEEPER [address] [place] [address] PCP - General Family Medicine 03/12/20 documented as of this encounter
--- OUTSIDE RECORDS SUMMARY | 2024-02-22 00:45 | XMS_ITS | Encounter Summary ---
Author Organization [facility] Address [facility] [place] [address] Care Team Providers Care Supervisor Machine Setter Name Role Phone Hoang Castellanos APRN Primary Care Provider Encounter Details Date Type Department Care Team (Latest Contact Info) Description 04/14/2023 Travel Social History Tobacco Use Types Packs/Day [...] in a senior care (including now)? No 04/14/2023 Sex and Gender Information Value Date Recorded Sex Assigned at Not on file Gender Identity Not on file Sexual Orientation Not on file documented as of this encounter Plan of Treatment Not on file documented as of this encounter Visit Diagnoses Not on filedocumented in this encounter Care Teams Supervisor Machine Setter Relationship Specialty Start Date End Date Hoang Castellanos, BRACER [address] [place] [address] PCP - General Family Medicine 03/12/20 documented as of this encounter
--- OUTSIDE RECORDS SUMMARY | 2024-02-22 00:45 | XMS_ITS | Encounter Summary ---
Author Organization [facility] Address [facility] [place] [address] Care Team Providers Care Track Service Person Name Role Phone Hoang Castellanos APRN Primary Care Provider Encounter Details Date Type Department Care Team (Latest Contact Info) Description 07/13/2023 Travel Social History Tobacco Use Types Packs/Day [...] place to sleep or slept in a fdc (including now)? No 04/14/2023 Sex and Gender Information Value Date Recorded Sex Assigned at Not on file Gender Identity Not on file Sexual Orientation Not on file documented as of this encounter Plan of Treatment Not on file documented as of this encounter Visit Diagnoses Not on filedocumented in this encounter Care Teams Track Service Person Relationship Specialty Start Date End Date Hoang Castellanos, SKIN LIFTER BACON [address] [place] [address] PCP - General Family Medicine 03/12/20 documented as of this encounter
--- OUTSIDE RECORDS SUMMARY | 2024-02-22 00:45 | XMS_ITS | Clinical Summary ---
Author Organization [facility] Address [facility] [address] Care Team Providers Care Automobile Designer Name Role Phone Hoang Castellanos APRN Primary Care Provider Allergies Active Allergy Reactions Criticality Noted Date Comments Varenicline 07/04/2013 psychotic Sumatriptan Succinate Hives 02/07/2019 Morphine Shortness Of Breath High 06/14/2016 Oxycodone Other (See Comments) Medium drunk feeling, dizzy Oxycodone-Acetaminophe n Other (See Comments) Medium 09/12/2009 dizziness, feels drunk Other reaction(s): Unknown Prednisone 05/17/2011 Other reaction(s): aggitation Sumatriptan Hives High 09/12/2009 Other reaction(s): Hives and Rash (Urticaria) Medications Medication Sig Dispensed Refills Start Date End Date Status MARIJUANA ORAL Take 1 Dose by mouth 2 times daily. Active multivitamin (THERAGRAN) Tablet Take 1 tablet by mouth daily. Active Miscellaneous Medical Supply MiscIndications:Dizz iness,Chronic right-sided low back pain without sciatica 1 walker on wheels with seat 1 each 03/12/2020 Active clonazePAM (KlonoPIN) 0.5 mg Tablet Take 0.5 mg by mouth nightly. 05/20/2021 Active atorvastatin (Lipitor) 40 mg TabletIndications:Hy perlipidemia, unspecified hyperlipidemia type TAKE ONE (1) TABLET BY MOUTH EVERY DAY 28 tablet 11 09/01/2021 Active omeprazole (PriLOSEC) 20 mg Capsule, Delayed Release(E.C.)Indicat ions:Gastroesophagea l reflux disease TAKE ONE (1) CAPSULE BY MOUTH TWICE A DAY 30 MIN BEFORE BREKAFAST AND IN THE EVENING 56 capsule 11 09/01/2021 Active Additional Information Patient not taking.Reported on 04/14/2023 ferrous sulfate (FeroSuL) 325 mg (65 mg iron) Tablet Take 1 tablet by mouth three times a week. 12 tablet 11 10/28/2021 Active Additional Information Patient not taking.Reported on 04/14/2023 polyethylene glycoL (Miralax) 17 gram Powder in Packet Take 17 g by mouth daily as needed. 14 each 11/04/2021 Active senna-docusate (Pericolace) 8.6-50 mg Tablet Take 2 tablets by mouth 2 times daily. 60 tablet 11 11/04/2021 Active acetaminophen (Tylenol) 500 mg Tablet Take 2 tablets by mouth every 6 hours. 30 tablet 1 11/04/2021 Active aspirin EC 81 mg Tablet, Delayed Release (E.C.) Take 1 tablet by mouth daily. 30 tablet 5 11/09/2021 Active lidocaine (Lidoderm) 5% Adhesive Patch, MedicatedIndications :Cervicalgia Place 2 patches onto affected area for 12 hours then remove for 12 hours 60 patch 5 12/01/2021 Active tiZANidine (Zanaflex) 4 mg TabletIndications:Ce rvicalgia,Chronic pain syndrome Take 1 tablet by mouth every 6 hours as needed. 56 tablet 3 12/01/2021 Active Additional Information Patient taking differently:4 mg OralNIGHTLY, Reported on 04/14/2023 nitroGLYcerin (Nitrostat) 0.4 mg Tablet, SublingualIndication s:Coronary artery disease involving [place] coronary artery of [place] heart without angina pectoris Place 1 tablet under the tongue every 5 minutes as needed for Chest pain. 30 tablet 1 12/02/2021 Active albuteroL (Ventolin HFA) 90 mcg/actuation HFA Aerosol InhalerIndications:C hronic obstructive pulmonary disease, unspecified COPD type INHALE 1 TO 2 PUFFS EVERY SIX HOURS NEEDED *CALL TO REFILL* 18 g 2 12/02/2021 Active diclofenac (Voltaren) 1 % GelIndications:Cervi calgia Apply 2-4g daily. 100 g 5 12/02/2021 Active Lactobacillus acidophilus 500 million cell CapsuleIndications:C ervicalgia Take 2 capsules by mouth 2 times daily. 120 capsule 11 12/02/2021 Active Miconazole PowderIndications:De rmal mycosis 1 Application by [facility]Non-Drug; Combo Route) route 2 times daily. 100 g 3 01/14/2022 Active isosorbide mononitrate CR (Imdur) 30 mg Tablet Sustained Release 24 hrIndications:Almanza ry artery disease involving [place] coronary artery of [place] heart without angina pectoris Take 1 tablet by mouth daily. 28 tablet 11 01/18/2022 Active cyanocobalamin, Vitamin B-12, (Vitamin B-12) 1,000 mcg TabletIndications:B1 2 deficiency TAKE ONE (1) TABLET BY MOUTH ONCE WEEKLY (PM) 4 tablet 11 02/15/2022 Active Additional Information Patient taking differently: 1,000 mcg Oral DAILY, Reported on 04/14/2023 nicotine (Nicoderm CQ) 14 mg/24 hr Patch 24 hrIndications:Cervic algia APPLY ONE (1) PATCH EVERY DAY 28 patch 3 03/19/2022 Active Additional Information Patient not taking.Reported on 04/14/2023 Spiriva Respimat 2.5 mcg/actuation MistIndications:Asth ma with acute exacerbation, unspecified asthma severity, unspecified whether persistent INHALE TWO (2) PUFFS INTO THE LUNGS NIGHTLY 3 each 3 03/19/2022 Active ibuprofen (Advil) 800 mg Tablet TAKE ONE (1) TABLET BY MOUTH EVERY 8HRS NEEDED FOR PAIN - SKIP ASPIRIN IF USING THIS- *CALL TO REFILL* (VIAL) 90 tablet 5 04/12/2022 Active Additional Information Patient not taking.Reported on 07/13/2023 Advair Diskus 500-50 mcg/dose Disk with Device USE 1 INHALATION TWICE A DAY 60 each 11 04/12/2022 Active calcium citrate (Calcitrate) 200 mg (950 mg) Tablet TAKE TWO (2) TABLETS BY MOUTH THREE TIMES A DAY 180 tablet 3 05/10/2022 Active cholecalciferol (Vitamin D) 1,000 unit Tablet TAKE THREE (3) TABLETS (3000IU) BY MOUTH EVERY DAY (PM) 84 tablet 11 05/10/2022 Active lamoTRIgine (LaMICtal) 200 mg Tablet TAKE ONE (1) TABLET BY MOUTH EVERY DAY 28 tablet 11 05/07/2022 Active levothyroxine (Synthroid) 50 mcg Tablet TAKE ONE (1) TABLET BY MOUTH EVERY DAY 28 tablet 11 05/07/2022 Active famotidine (Pepcid) 20 mg tablet Take 20 mg by mouth daily. Active FLUoxetine (PROzac) 20 mg capsule Take 20 mg by mouth daily. Active divalproex EC (Depakote) [address] tablet Take 125 mg by mouth 2 times daily. Active prazosin (Minipress) 1 mg capsule 06/25/2023 Active traZODone (Desyrel) 50 mg tablet Take 50 mg by mouth nightly. 07/07/2023 Active Incruse Ellipta 62.5 mcg/actuation Disk with Device Inhale into the lungs. 06/20/2023 Active lactobacillus rhamnosus, GG, (CULTURELLE) 10 billion cell Capsule Take 1 capsule by mouth daily. Active magnesium oxide (Mag-Ox) 400 mg (241.3 mg magnesium) Tablet Take 400 mg by mouth daily. Active ascorbic acid, vitamin C, (Vitamin C) 1,000 mg tablet Take 1,000 mg by mouth daily. Active Active Problems Problem Noted Date Diagnosed Date Arthrodesis present 10/28/2021 Cervical spinal stenosis 08/31/2021 Cataract of right eye 12/17/2020 Right leg weakness 12/17/2020 Chronic pain of right ankle 12/17/2020 Bilateral leg edema 12/17/2020 Vitamin D deficiency 10/16/2020 Vitamin B12 deficiency 10/16/2020 Asthma 08/02/2019 Benign essential hypertension 08/02/2019 Bulimia 08/02/2019 Chronic obstructive pulmonary disease 08/02/2019 Constipation 08/02/2019 History of diabetes mellitus, type II 08/02/2019 Hyperlipidemia 08/02/2019 Obstructive sleep apnea (adult) (pediatric) 03/2020 Osteoarthrosis 08/02/2019 Seizures 08/02/2019 Coronary artery disease 08/02/2019 Overview (04/24/2021): s/p PCI to prox and mid LAD (2012) 10/09/2020 Zio Patch Ambulatory Cardiac Event Monitor Duration of recording - 7 days 1 hour Conclusion(s): 1. Predominant rhythm is sinus. 2. Symptoms occurred during sinus rhythm. 3. No sustained arrhythmias. TTE 01/07/2021: SUMMARY: 1. The left ventricular chamber size is normal. Left ventricular wall thickness is normal. There are no left ventricular segmental wall motion abnormalities. There is normal global left ventricular systolic function. Ejection fraction is estimated to be 65%. 2. Right ventricular chamber size, wall thickness, and systolic function are within normal limits. 3. There is no hemodynamically significant valve disease. 4. See remainder of report for additional findings. [employer] Stress 04/15/2021: No fixed or reversible perfusion defects are present. Functional analysis: Myocardial function: There is normal wall thickening and wall motion. Left ventricular ejection fraction: 66 % (normal greater than than 50%). INCIDENTAL CT FINDINGS: Coronary artery calcifications. ??IMPRESSION No ischemia or scar. Left ventricular function is normal. Headache 08/02/2019 Bipolar disorder 08/02/2019 Hypothyroidism, acquired 08/02/2019 Borderline personality disorder 11/06/2018 Overview (11/06/2018): Per [facility] Osteoporosis 02/02/2016 Overview (02/02/2016): DEXA done at [facility] on 10/29/15: osteoporosis at the left hip T-3, and osteopenia of the spine T-1.9 GERD (gastroesophageal reflux disease) 3 Anxiety 05/09/2013 Depression 05/09/2013 Post traumatic stress disorder (PTSD) 05/09/2013 Hidradenitis suppurativa 05/09/2013 Cervicalgia Chronic pain Lumbago Resolved Problems Problem Noted Date Diagnosed Date Resolved Date Generalized weakness 03/12/2020 022 Right forearm pain 02/05/2020 0 Closed fracture of right distal radius 02/05/2020 07/14/2020 Dizziness 08/02/2019 12/01/2021 Suicide attempt 08/02/2019 03/04/2020 Low back pain 08/02/2019 03/23/2022 Cerumen impaction 12/13/2014 02/05/2020 Atherosclerosis of [place] co ronary artery of [place] heart without angina pectoris 05/09/2013 Hypertension 05/09/2013 01/08/2020 Smokes cigarettes 05/09/2013 12/01/2021 Hypothyroidism 05/09/2013 01/08/2020 Obesity, S/P remote gastric bypass in 1996, prior VBG 05/09/2013 03/04/2020 Immunizations Name Administration Dates Next Due Covid-19 (Pfizer), [place] Cap Bivalent 30mcg (12Yrs+) 05/13/2022 Covid-19 (Pfizer), Purple Ca p Monovalent Vaccine (12yrs+) 06/10/2021,10/26/2020,09/25/2020 Influenza PF, Split 05/03/2014,04/17/2013 Influenza Quadrivalent, Pres ervative Free 05/13/2022,2021,05/01/2020,09/23 Influenza Trivalent w/Preservative 05/03,04/17/2013,05/25/2012,06/14,05/13/2009 Influenza Unspecified Formulation 07/14/2010, Influenza Vaccine PF, Season al, Injectible 06/27/2018,05/19/2017,05/24/2016,05/30 Pneumococcal Conjugate (Prevnar 20) 03/23/2022 Pneumococcal Polysaccharide (Pneumovax 23) 05/19/2017,05/13/2008 TD Adult 01/22/2007 Td Adult, Absorbed 01/22/2007 Tdap 03/28/2018 Zoster (ShingRix), Recombinant 03/04/2020,2019 Family History Medical History Relation Comments Depression Father Heart Disease Father Hypertension Father Obesity Father Type 2 Diabetes Father Heart Disease Maternal Grandfather Type 2 Diabetes Maternal Grandfather Heart Disease Maternal Grandmother Anxiety Disorder Mother Depression Mother Heart Disease Mother Congestive Heart Failure Hypertension Mother Lung Cancer Mother Multiple Sclerosis Mother Leukemia Other Heart Disease Paternal Grandmother Cervical Cancer Sister 1 Other Sister 2 Breast Neoplasm, Benign Breast Cancer Neg Hx Relation Status Comments Father Maternal Grandfather Maternal Grandmother Mother Other Alive Paternal Grandmother Sister 1 Sister 2 Social History Tobacco Use Types Packs/Day Years Used Date Smoking Tobacco: Every Day Cigarettes Last attempted to quit: 07/25/2021 Smokeless Tobacco: Never Tobacco Cessation:Ready to Q uit: No; Counseling Given: Yes Comments:smoking 3 cigarettes some days Alcohol Use Standard Drinks/Week Comments [...] place to sleep or slept in a chcf (including now)? No 04/14/2023 Sex and Gender Information Value Date Recorded Sex Assigned at Not on file Gender Identity Not on file Sexual Orientation Not on file Last Filed Vital Signs Vital Sign Reading Time Taken Comments Blood Pressure 151/82 07/13/2023 1:20 PM EST Pulse 47 07/13/2023 1:20 PM EST Temperature 36.3 ??C (97.4 ??F) 07/13/2023 1:20 PM ES T Respiratory Rate 16 07/13/2023 1:20 PM EST Oxygen Saturation 99% 07/13/2023 1:20 PM EST Inhaled Oxygen Concentration - - Weight 91.9 kg (202 lb 9.6 oz) 07/13/2023 1:20 P M EST Height 161.5 cm (5' 3.58) 07/13/2023 1:20 PM ES T Body Mass Index 35.23 07/13/2023 1:20 PM EST Plan of Treatment Health Maintenance Due Date Last Done Comments CT Colonography 1960 Colonoscopy 1960 Colorectal Cancer Screening 1960 FIT DNA 1960 FIT 1960 Sigmoidoscopy (10 year) with FIT yearly 1960 Sigmoidoscopy 1960 HIV screen 1978 Hepatitis C Screening 1978 HPV test 1990 PAP Smear 1990 Breast Cancer Share Decision Needed 2000 Breast Cancer screening 05/26/2023 05/26/2021, 11/09 Influenza (Flu) vaccine (1 o f 1 - Influenza standard series) 03/25/2024 05/13/2022, 2021, 05/01/2020, Additional history exists Diabetes Screening (HgbA1C o r Glucose) 07/13/2026 07/13/2023, 03/31/2022, 03/31/2022, Additional history exists Tetanus vaccine 03/28/2028 03/28/2018, 07/2006, 01/22/2007 Tdap adult Completed 03/28/2018 Zoster vaccine Completed 03/04/2020, 09/24/2019 Pneumococcal Vaccine: At-Ris k 5-64yrs Completed 03/23/2022, 05/19/2017, 05/13/2008 Covid-19 Vaccine Completed 06/30/2023, , 06/10/2021, Additional history exists Medical Devices Implanted Type Area Shiatsu Therapist Device Identifier Shelf Expiration Date Model / Serial / Lot Graft Bone Filler [id number] Dbm Freeze Dried Chips ([id number]) (Autoreq) - [id number] Implanted:Qty : 1 on 10/30/2021 by Campos Puente MD at [facility] IMPLANTS N/A: Spine Cervical [employer] 06/16/2025 [id number] / [id number] / [id number] Graft Bone Filler 5cc Dbm Jar Putty Maury ([id number]) ([employer]oreq) - [id number] Implanted:Qty : 1 on 10/30/2021 by Campos Puente MD at [facility] IMPLANTS N/A: Spine Cervical [employer] - [employer] 06/08/2024 [id number] / [id number] / Yaya Spinal 3.5x25mm [place] Cervical Pre Cut Ti ([id number]) ([employer]) - [id number] Implanted:Qty : 2 on 10/30/2021 by Campos Puente MD at [facility] IMPLANTS N/A: Spine Cervical [employer] [id number] / / Screw Spinal 3.5x12mm Posterior Cervical Mltaxl Sld Ti ([id number]) ([employer]q) - [id number] Implanted:Qty : 4 on 10/30/2021 by Campos Puente MD at [facility] IMPLANTS N/A: Spine Cervical [employer] - [employer] [id number] / / Screw Spinal Set Posterior Cervical Mltaxl Sld Pt Infinity ([id number]) ([employer]q) - [id number] Implanted:Qty : 1 on 10/30/2021 by Campos Puente MD at [facility] IMPLANTS N/A: Spine Cervical [employer] [id number] / / Procedures Procedure Name Priority Date/Time Associated Diagnosis Comments COMPREHENSIVE METABOLIC PANEL (NON-FASTING) Routine 07/13/2023 12:38 PM EST S/P gastric bypass Disorder of iron metabolism Intestinal malabsorption, unspecified type MAMMO SCREENING CAD AND JESSY BILATERAL Routine 05/26/2021 10:30 AM EDT Breast cancer screening by mammogram from Last 3 Months or Most Recently Relevant to Health Maintenance Results * (ABNORMAL) Comprehensive metabolic panel (non-fasting) (07/13/2023 12:38 PM EST) Glucose Lvl 131 65 - 199 mg/dL [facility] Comment:Diabetes: >=200 mg/d L plus symptoms BUN 24(H) 8 - 18 mg/dL [facility] Creatinine 0.69(L) 0.70 - 1.20 mg/dL [facility] Sodium 139 135 - 145 mmol/L [facility] Potassium 4.5 3.5 - 5.0 mmol/L [facility] Comment: Please note: ??Patients with WBC >100,000 may have falsely elevated Potassium levels. ??For accurate Potassium quantification in these patients send serum separator tube (gold top) for subsequent determinations. ??Contact the Clinical Chemistry Laboratory if there are any questions. Chloride 100 98 - 107 mmol/L [facility] CO2 30 22 - 31 mmol/L [facility] Anion Gap 9 5 - 15 mmol/L [facility] Calcium 10.0 8.5 - 10.5 mg/dL [facility] Total Protein 6.9 6.1 - 8.0 g/dL [facility] Albumin 4.4 3.2 - 5.2 g/dL [facility] AST 20 0 - 30 unit/L [facility] ALT 21 0 - 30 unit/L [facility] Alk Phos 97 35 - 105 unit/L [facility] Total Bilirubin <0.2(L) 0.2 - 1.3 mg/dL [facility] Estimated GFR 97 >=60 mL/min/1. 73 m?? [facility] Comment: This patient's estimated GFR was calculated using the 2020 CKD-EPI equation. The estimated GFR can vary from the measured GFR by up to 30% in the absence of rapidly changing kidney function. Assessment of the estimated GFR is not appropriate when creatinine concentrations are rapidly changing. For clinical situations in which a more precise estimate of GFR is necessary, consider alternative methods of GFR estimation such as a 24-hour urine creatinine clearance. Assignment of CKD stage 1-5 for patients with an eGFR near the transition point between stages may be based on clinical assessment of muscle mass and symptoms in addition to eGFR. Blood 07/13/2023 12:3 8 PM EST 07/13/2023 12:43 PM EST Narrative Resulting Agency Comment Spec In Lab Priya Charles APRN CHEMISTRY ORDERA BLES [facility] [place] [address] * Mammo Screening Cad and Jessy Bilateral (05/26/2021 10:30 AM EDT) Anatomical Region Laterality Modality Breast Bilateral Mammography Narrative 05/29/2021 10:20 PM EDT BILATERAL MAMMOGRAPHY REASON FOR EXAM: Screening TECHNIQUE: CC and MLO views were obtained of each breast using standard 2-D mammography as well as 3-D tomosynthesis. Computer aided detection was used. This is compared with prior images from 11/10/11. FINDINGS: There are scattered areas of fibroglandular density. There are no suspicious microcalcifications, masses, or areas of distortion. The pattern is stable. CONCLUSION: No mammographic evidence of malignancy. RECOMMENDATION: Regular screening mammograms starting between age 40 and 50 reduces the risk of from breast cancer. All screening tests have both risks and benefits. These risks and benefits should be assessed for each individual patient through discussion with their provider to determine their preferred breast cancer screening schedule. Women should report any breast changes to a health care provider right away. Some women, because of their family history, a genetic tendency, or other factors, should be screened with annual breast MRI as well as with mammograms. (The number of women who fall into this category is very small). Patients and health care providers should discuss each patient? s history to decide if earlier screening and/or breast MRI are appropriate. Screening should continue as long as a woman is in good health and is expected to live 10 years or longer. Screening mammography may not detect 10-15% of breast cancers. A result letter has been sent to this patient by the [facility]. BIRADS CATEGORY 1: NEGATIVE Electronically signed by: Serafin Yan MD Hoang Castellanos APRN IMG MAMMO ORDERABLES from Last 3 Months or Most Recently Relevant to Health Maintenance Advance Directives Documents on File Type Date Recorded Patient Straw Boss Expl anation Advance Directives and Livin g Will 09/26/2014 2:30 PM 09/06/14 * Attempt Cardiopulmonary Resuscitation - Inpatient (Latest Code Status on File) Date Activated Date Inactivated Comments 10/30/2021 1:52 PM 11/04/2021 6:08 PM Question Answer Comments Code Status decision made by: Healthcare Agent ( DPOA) Name (and relationship if needed): DPOA * Full Code Date Activated Date Inactivated Comments 04/15/2013 1:27 AM 04/17/2013 5:43 PM Question Answer Comments Order Status: Initial Order Does patient have decision m aking capacity? Yes, Order is based on Patients wishes. Care Teams Automobile Designer Relationship Specialty Start Date End Date Hoang Castellanos, FILM SOUND ENGINEER [address] [place] [address] PCP - General Family Medicine 03/12/20
--- OUTSIDE RECORDS SUMMARY | 2024-02-22 00:45 | XMS_ITS | Encounter Summary ---
[place] [address] Care Team Providers Care Bowling Teacher Name Role Phone Hoang Castellanos APRN Primary Care Provider Reason for Visit * Reason Comments Establish Care Encounter Details Date Type Department Care Team (Late st Contact Info) Description 07/13/2023 1:30 PM EST Office Visit [place] [address] Jessica Mcfarland APRN [facility] [place] [address] Meena Hastings, JEREMY [facility] [place] [address] S/P gastric bypass; Disorder of iron metabolism; Intestinal malabsorption, unspecified type Social History Tobacco Use Types Packs/Day Years Used Date Smoking Tobacco: Every Day Cigarettes Last attempted to quit: 07/25/2021 Smokeless Tobacco: Never Comments:smoking 3 cigarette s some days Alcohol Use Standard Drinks/Week Comments No 0 (1 standard drink = 0.6 oz pur e alcohol) not drank in 24 years Overall Financial Resource Strain (CARDIA) [place]et[place] r Date Recorded How hard is it [...] slept in a residential (including now)? No 04/14/2023 Sex and Gender [...] Mass Index 35.23 07/13/2023 1:20 PM EST documented in this encounter Patient Instructions * Patient Instructions* Jessica Mcfarland, CARE CENTER MANAGER - 07/13/2023 1:30 PM EST [facility] business support professional Lela [phone] and [place] [phone] Dietitians: [phone] Surgeons/ nurse practitioners: [phone] Nurse line: [phone] Dear Jeannie, Please see your electronic medical record note from today for details we discussed at your visit. Below is some additional general information that you may find helpful. Testing: It would be helpful if you can have your lab work drawn a couple days before your visit guerline [facility] facility so the results are available at the time of your follow up visit. If you have labwork done by your primary patient care coordinator before that date, please have a copy sent to the Bariatric Surgery Program. Please call/send my SafeMedia message if you have not heard from us within 2 weeks of having labs work done. Here's the link to [facility] Lab hours and locations: [email or web address] Next visit: Follow up visits are done at 4 months and 12 months after surgery and yearly thereafter. Some patients are evaluated on a more frequent basis. Please call [phone] if you do not receive an appointment by 3-4 weeks prior to the expected visit. Vitamins/Nutrition/Activity Recommendations: Please see your visit note for personalized recommendations General Vitamin recommendations: Multivitamins with minerals twice daily- needs to be an under 50 multivitamin that contains iron. Vitamin B12 500 mcg by mouth once daily Calcium citrate 500-600 mg with Vitamin D 400 units twice daily (600 mg in AM and 600 mg in PM- 2 pills twice a day) (or 1 chewable twice a day) Iron supplement: as specified in today's visit Vitamin D: as specified in today's visit General Nutrition recommendations: 1,000-1,200 calories per day (300 calories per meal, 100 calories per snack, 1-2 snacks per day) 60 grams of protein per day (20 grams per meal) 48-64 oz of non-caloric and hydrating fluids per day (6-8, 8 oz cups) Do not drink with meals- pushes food through more quickly, can cause upset stomach Activity: Aim for 30 minutes of exercise daily, 5 days a week of both cardio and strength training exercises. Skinfold care: Cleanse area with soap and water. Blow dry area on low setting with hairspring adjuster. Avoid excessive heat and/or sweating as friction and moisture can exacerbate disease. Try OTC Dove clinical strength anti perspirant to affected areas nightly or an absorbent powder such as Gold Villalobos and Desinex Apply cotton strips (such as strips from old sheets) or larger size cotton underwear folded beneathskin folds to act as a wick. Do not apply pipo cloth toweling which can cause further irritation Try combination of over the counter hydrocortisone cream with over the counter antifungal cream such as lotrimin twice a day for 2 weeks. If your symptoms do not improve you may require prescription of anti-fungal cream/powder. Follow up with PCP if symptoms worsen/fail to improve with above strategies. Constipation: Increase fiber, fluids and fitness. Yerba Prima is a fiber supplement that comes in capsule form. Additionally, consider trying 1 capful daily of miralax daily (preferably at night) with a goal of at least 1 BM per day. You can increase the dose as needed every 2-3 days (by adding on 1 capful either morning or night) without safety concerns, noting that individual tolerance becomes limited by loose stools and bloating with doses higher than 2 capfuls twice daily. Please call if you do not have a BM after 3 days. On days with loose stools, we recommend reducing miralax to 1/2 capful daily but continue to take miralax every day Nausea: Common causes for nausea post bariatric surgery are: Eating too fast, eating too much, drinking with meals, or not chewing well enough. Be sure to eat slowly and chew food well. Take at least30 minutes or more to eat a meal. Call if symptoms worsen, fail to improve, or if you have difficulty keeping food or fluid down. Alcohol: is not recommended for at least 6-12 months after surgery. Alcohol is absorbed much fasterand stays in your system much longer post bariatric surgery and as a result there is an increase risk of alcohol misuse/abuse after bariatric surgery. It should be used sparingly, no more than one drink per occasion, no more than 2 drinks a week. Alcohol is toxic to the liver, a source of empty calories, it can cause ulcers, vitamin and mineral deficiencies, as well as impair digestion and absorption of nutrients. Call or follow up with your therapist or primary care provider if you are struggling or think your alcohol intake is a problem. control for women of child bearing age: is recommended for at least 18-24 months after surgery. f non-prescribed drugs and treet drugs is unsafe Anti-inflammatory medications such as Ibuprofen (Advil), Aleve (Naproxen), Excedrin, Aimee-Greenwood should be used sparingly after gastric bypass, since they increase the risk of ulcer and bleeding. A bone mineral density scan (DEXA) is recommended every 2 years after bariatric surgery. Please schedule this study through your primary care providers office. Hair Loss: is associated with rapid weight loss and is seen approximately 3 to 6 months after surgery and can last 3 to 6 months. It is almost always temporary. Eating a healthy diet with 60 grams ofprotein per day and taking your multivitamin with minerals will help. Sleep Apnea: If you have a history of sleep apnea and have a CPAP/BiPAP, please be sure to follow up with the sleep center to confirm your pressures and determine if continued use of CPAP/BiPAP is recommended. Potential lifetime risks of gastric bypass include risk of ulcer, which is increased with alcohol and antiinflammatory medications and internal hernia (less than 5%), which may be increased with higher than predicted weight loss Potential lifetime risks of sleeve gastrectomy include developed heartburn or severe reflux Call us: If you have concerns. If you have unexplained abdominal pain. if you see blood in your stool or vomit blood If you have prolonged vomiting Post Surgery Support Group: Our post surgery support group meets at [facility] on the first Tuesday of every month from 1:00 PM-2:00 PM. You can attend online or in person. Use the following link to attend online: [email or web address] Nutrition and Activity apps- Baritastic, My Fitness Pal, Lose It, My Plate Internet resources: www.Wooshii www.TheWorldAccordingtoEggFace.com www.bariatriceating.com www.MyFitnessPal.com/blog [facility] facebook page: [email or web address] Books & Magazines: - Recipes for Life After Weight Loss Surgery by Suly Cruz - Shrink Yourself by Dr Juan Carlos Carlos - Eating Well - www.BigDNA.Scaled Agile - Cooking Light- www.cookinglight.Scaled Agile Anxiety: The Happiness Trap by Efren Richey The Mindfulness and acceptance workbook for anxiety By Jose A Acosta. Mindful eating: What are you Hungry For? By Ricardo Murray The Mindful Diet by Katerine Nelson and the [facility] group. Emotional eating: End Emotional Eating by Tamar Russo Calming the Emotional Storm Jessica Hayes documented in this encounter Progress Notes * Jessica Mcfarland APRN - 07/13/2023 1:30 PM EST [place] [address] Reason for visit: Bariatric Surgery follow up visit Subjective: Jeannie Rico is s/p partitioned, non-divided Genesis en Y gastric bypass on 05/12/[address] Trejo. Last seen in 2019. Jeannie is reestablishing care for support with supplements and diet. Jennifer lives in an assisted living facility ([facility]). She is seeking for our team to advise on her recommended supplement and meal plan. She notes she has been placed on a gluten free meal planfor antiinflammatory effect (change made by her PCP). Jeannie was last seen by [facility] in 12/2019. She reports since then her weight is down, which she attributes to her restricted meal plan. Tolerating foods and fluids. Pt reports no difficulty swallowing, epigastric pain, or bloating. Continues to struggle with constipation (FB PCP who has prescribed Miralax and sees her at [facility]). Taking PRN omeprazole and daily famotidine. Endorses GERD (rare regurgitation and heartburn unsure of frequency). Supplements: Per list from [facility] MV B12 1000 mcg daily Blood Builders Iron daily Calcium citrate 200 mg twice daily Vitamin D 2000 IU daily Vitamin c 1000 mg daily Magnesium oxide Probiotic Interim Health: Reports health has been stable overall, no new medical issues, surgeries or hospitalizations/ED visits since the last visit. No kidney stones or atraumatic fractures. Pt has no bariatric related concerns/complaints today Pt follows with PCP/specialist for disease management and age specific screening. Pre-Bariatric Surgery Obesity related medical issues: Problem Baseline issue if checked Comments Diabetes/prediabetes/insulin resistance [x] Metabolic syndrome or PCOS [] HTN [x] GERD [x] Recommend increase to daily PPI today re: GERD symptoms and Nicotine use Hyperlipidemia [x] KARINA [] Musculoskeletal issues [] Liver Disease [] Other [] Patient Active Problem List Diagnosis Code Cervicalgia [...] Cervical spinal stenosis M48.02 Arthrodesis present Z98.1 Review of Systems Constitutional: energy level is really poor (re: mental health PTSD), stable c/o restless (using magnesium with good effect), hair loss Neuro: stable paresthesias (re: neck surgery), denies memory loss CV: no chest pain or palpitations. Pulm: endorses SOB and cough (re: smoking) GI: denies bloating or abdominal pain. occasional nausea, no vomiting, diarrhea. BM tend toward constipation, seeing PCP taking Miralax. : no urinary concerns/changes Skin: + redundant skin. no skin fold rashes. Mood: stable, in therapy and on meds. Dietary history/ exericse/ activity level: See dietitian note from today's visit for complete dietary evaluation. Health Habits: Tobacco: previously 2.5 packs/day, now 8 cigarettes/day. ETOH: none NSAIDS: None, tylenol only. Visit date Wt (lbs) BMI HT: 64 Pre-op 06/08/99 299 51.8 Post-op %EBW lost 08/13/10 248 42.5 30 07/04/13 236 40.5 37.5 10/23/15 238 41.6 36.3 11/15/16 228 40 42 11/15/18 221 38 53 01/08/20 224 38.4 51 07/13/23 202 35.2 64 Post op wt history: 222 pounds on 02/20/01, 238 pounds on 03/30/02, 242 pounds on 10/04/02, 255 pounds on 10/22/03, 263 pounds on 05/26/05, 222 pounds on 10/11/05 LMP (LMP Unknown) Physical Exam General: Alert, pleasant, NAD, appears well. Abdomen: Soft, non-distended, non-tender. Resp: No increased work of breathing. Speaking in full sentences. No cough/wheeze witnessed. Skin: excess skin noted abdomen. Skin is warm and dry. No rash noted on exam today. Psychiatric: Normal mood and affect. Appropriate eye contact. Recent Results (from the past 72 hour(s)) Vitamin D, 25-Hydroxy Result Value Ref Range 25-OH Vit D Total 56 21 - 100 ng/mL 25-OH Vit D Interp Sufficient PTH Result Value Ref Range PTH 46 15 - 65 pg/mL Iron and TIBC Result Value Ref Range Iron 74 30 - 150 mcg/dL TIBC 344 250 - 450 mcg/dL Iron Saturation 22 20 - 50 % Hemogram Result Value Ref Range WBC 11.1 (H) 4.0 - 9.5 x10(3)/mcL RBC 4.53 4.00 - 5.21 x10(6)/mcL Hemoglobin 14.3 11.7 - 15.5 g/dL Hematocrit 44.5 35.7 - 45.8 % MCV 98.2 (H) 82.6 - 94.4 fL MCH 31.6 27.1 - 32.0 pg MCHC 32.1 31.7 - 35.0 g/dL Platelets 226 145 - 357 x10(3)/mcL RDWSD 52.4 (H) 37.0 - 46.0 fL RDWCV 14.4 (H) 11.5 - 14.1 % MPV 9.4 7.6 - 12.9 fL nRBC % Auto 0.0 % nRBC Abs Auto 0.000 0.000 - 0.000 x10(3)/mcL Folate, serum Result Value Ref Range Folate Lvl 16.5 4.8 - 24.2 ng/mL Ferritin Result Value Ref Range Ferritin 46 11 - 328 ng/mL Comprehensive metabolic panel (non-fasting) Result Value Ref Range Glucose Lvl 131 65 - 199 mg/dL BUN 24 (H) 8 - 18 mg/dL Creatinine 0.69 (L) 0.70 - 1.20 mg/dL Sodium 139 135 - 145 mmol/L Potassium 4.5 3.5 - 5.0 mmol/L Chloride 100 98 - 107 mmol/L CO2 30 22 - 31 mmol/L Anion Gap 9 5 - 15 mmol/L Calcium 10.0 8.5 - 10.5 mg/dL Total Protein 6.9 6.1 - 8.0 g/dL Albumin 4.4 3.2 - 5.2 g/dL AST 20 0 - 30 unit/L ALT 21 0 - 30 unit/L Alk Phos 97 35 - 105 unit/L Total Bilirubin <0.2 (L) 0.2 - 1.3 mg/dL Estimated GFR 97 >=60 mL/min/1.73 m?? Assessment/Plan : Jeannie Rico is 63 y.o. woman approaching 23 years s/p non- divided Genesis en Y gastric bypass on 05/12/00. S/p bariatric surgery: Doing well from a bariatric surgery perspective, reviewed dietary considerations and strategies to meet nutritional goals. Reviewed importance of meeting nutritional/protein/fluid requirements , tracking food/preplanning, meal prep, pairing carbs with protein and following post bariatric eating behaviors. JEREMY has contacted [facility] and discussed meal plan with Daniella (television program director), who states gluten free meal plan has been discontinued. Discussed risks associated with alcohol intake after bariatric surgery (increased risk of alcohol misuse/abuse, increased risk of ulcers, empty calorie). Patient has met with rejector today, please see note for additional details/dietary evaluation. Discussion re: patient's nicotine/tobacco use: encouraged cessation. Toxic nature, carcinogenic effects and risk for ulcers were reviewed. Recommended PPI for ulcer prevention. Pt understands rationale for quitting, declines desire to quit today. Pre-Bariatric surgery obesity related co-morbidities: Improved/stable overall, patient to continue to follow with PCP/specialist. GERD: recommend increasing PPI to daily (also to decrease risk of ulcer re: nicotine use). Recommendation sent through ED[facility] to PCP (Jolly Davenport). Constipation: Reviewed supportive measures, recommend Risk for vitamin deficiencies: Reviewed lab results as above. Labs faxed to [facility] for PCP review. Reviewed recommended vitamin/mineral supplements- recommendations sent to Sherry [facility] (by JEREMY merinoo reviewed recommendations with Sherry [facility] by phone) and shared with PCP via EDH. As below: These are the bariatric surgery supplements we recommend: -Multivitamin with iron and minerals twice a day (the recommendation for all bariatric surgery patients is 2x the INDUCTION BRAZER) -Continue B12 1000 mcg once a day (labs were at goal) -Calcium citrate 600 mg with vitamin D 400 IU twice a day -Continue Vitamin D 2000 IU/Daily (labs were at goal) -Based on her recent labs with us, Jeannie did not seem to need extra iron at this time (I suspect the double dose of iron in the multivitamin would be sufficient). -If you feel she should stay on additional iron, that is totally fine as well. We recommend every other day administration of iron as this has been shown to increase absorption. We usually recommend the brand Vitron C which contains vitamin C, to further help with absorption. The other supplements Jeannie is taking are not related to her bariatric surgery and thus I have no strong opinion either way. These include: Vitamin c 1000 mg daily Magnesium oxide Probiotic Pt reminded that a bone mineral density scan (DEXA) is recommended every 2 years after bariatric surgery. Recommended f/u with primary care provider to check if up to date. RTC in for next annual BSP follow up visit, with labs (patient undecided, may choose to continue follow up with PCP instead). Call/rtc sooner prn with questions/concerns or unexplained abdominal pain, prolonged nausea, vomiting or inability to hydrate. Bariatric Program Summary report is availabe for patient's review via e-DH I spent a total 60 minutes associated with this encounter, including chart review, the patient encounter, and documentation. Jessica Mcfarland APRN RECOMMENDED BARIATRIC SURGERY PROGRAM POSTOPERATIVE FOLLOW-UP: Follow up: done at 4, 12 and yearly thereafter. High risk patients are evaluated on a more frequentbasis. *Typical Supplement recommendations: Multivitamin with minerals twice a day, B12 500 mcg once a day, calcium citrate 600 mg/400 units vitamin D twice a day, iron (ferrous fumarate, carbonyl iron taken with vitamin C 250 mg once every other day) for menstruating females or those with Iron Deficiency. Labwork: Hemogram, ferritin, iron (transferrin) saturation, iron, folate, B1, B12, D (25 hydroxy only), Intact PTH and comprehensive metabolic profile at 4, 12 months and yearly. If labwork is done by the primary patient care coordinator: please send a copy to the Bariatric Surgery Program, General Surgery Clinic, [facility], or fax [phone] * Meena Hastings, RD - 07/13/2023 1:30 PM EST Bariatric Surgery Program Nutrition Progress Note Encounter Type: follow up SUBJECTIVE: Topics Discussed/Patient Concerns: Pt states she would like to discuss vitamin and mineral supplement costs and necessity of taking supplements. Advised pt that the vitamin and mineral supplements are necessary for life after bariatric surgery. Reviewed vitamin and mineral supplements in detail and discussed average cost. Advised pt that I would call [facility] facility to review vitamin and mineral supplement recommendations Pt also reported that she was instructed to follow a gluten-free diet at the [facility] for inflammation. Advised pt that I would also discuss her dietary restrictions with the [facility] Welfare Supervisor. Social History: Has a supportive home health care case manager. OBJECTIVE: Type of Surgery: non-divided RNY gastric bypass on 05/12/00 Weight History: Date WT HT BMI Comments 06/08/99 306 64 51.8 Pre-op weight %EWL 08/13/10 248 30 42.5 11/11/10 237 37.5 40.7 07/04/13 236 37.5 40.5 13 Years post-op 10/23/15 238 36.3% 41.6 15.5 years post-op 11/15/16 228# 42.3% 40.5 16.5 years post-op 11/15/18 221# 53% 38.1 18.5 years post-op 01/08/20 224# 51% 38.4 19.5 years post-op 07/13/23 203# 64% 34.8 23 years post-op Bryan Body Weight (based on BMI of 25): 146# 30-70% Excess Weight Loss: 194-258#; 50% Excess Weight Loss: 226# Vitamin/Mineral Supplements (reported by patient): Supplement Type Brand/Form Dosage/Amount Frequency Comments Multivitamin none Start complete MVM 2 pills daily Calcium Calcium citrate petite 200 mg Twice daily Vitamin B12 pill 1,000 mcg daily Iron Blood builder 1 tablet daily 26 mg iron w/ vitamin C Discuss constipation with PCP Vitamin D3 pill 2,000 IU daily Vitamin C pill 1,000 mg daily probiotics Magnesium oxide 400 mg daily Food Allergies/Intolerances: Lactose intolerant, red meat, sausage, pork chops, lettuce (can tolerate spinach and other leafy greens)- not reviewed at today's visit Tracking Intake: Not currently tracking 24-Hour Intake: Pt states she uses Premier Protein drinks to increase protein intake Breakfast Premier protein, chex cereal w/ LF milk, 1/4 banana, 1/4 c yogurt, coffee AM Snack 20 oz water Lunch Salad OR protein drink and cereal PM Snack Dinner Salad OR protein drink and cereal HS Snack Protein/ grams per day: 60+g Hydrating fluids- oz/ day: 60 oz+ Plain ice water in addition to protein drinks Soda: none ETOH: None. Caffeine: 1 cup daily Sweets: avoids Meals per day: 3 Has had dumping syndrome: none In the past month, pt has vomited/regurgitated: none Constipation/Diarrhea: +constipation, 1 BM every 7 days, taking Miralax and senna. Advised pt to discuss constipation with PCP. Exercise: not discussed at today's visit ASSESSMENT: Summary of Weight Loss: Jeannie Rico returns for routine follow-up at 23 years s/p surgery. Her excess weight loss is at64%. Pt is tolerating the diet and is meeting protein and fluid goals. Pt reported that she was instructed to follow a gluten-free diet at the [facility] for inflammation, advised pt that I woulddiscuss her dietary restrictions with the [facility] Welfare Supervisor to further understand the reasoning for the gluten-free diet. Pt asked to discuss vitamin and mineral supplement costs and necessity of taking supplements. Advised pt that the vitamin and mineral supplements are necessary for life after bariatric surgery. Reviewed vitamin and mineral supplements in detail and discussedaverage cost. Advised pt to take vitamin and mineral supplements as listed above. Advised pt that Iwould call [facility] facility to review vitamin and mineral supplement recommendations. NUTRITION INTERVENTION & MONITORING: Provided support/encouragement and reinforced importance of meeting nutritional goals. Aim for 60-80g of protein/day- eat protein at all meals and snacks, eat protein first Aim for 48-64 oz hydrating fluid/day Reviewed vitamin and mineral supplement recommendations. Multivitamins with minerals twice daily- needs to be an under 50 multivitamin that contains iron. Vitamin B12 500 mcg by mouth once daily Calcium citrate 500-600 mg with Vitamin D 400 units twice daily (2 pills twice a day) (or 1 chewable twice a day) Vitamin D 2000 IU daily Evaluation by nurse practitioner today. Handouts provided: Bariatric Toolkit (revised 2020) Refer to this booklet for high protein recipes and snack ideas F/u in 1 yr, sooner if requested. documented in this encounter Plan of Treatment Not on file documented as of this encounter Results * Vitamin D, 25-Hydroxy (07/13/2023 12:38 PM EST) 25-OH Vit D Total 56 21 - 100 ng/mL [facility] 25-OH Vit D Interp Sufficient [facility] Blood 07/13/2023 12:3 8 PM EST 07/13/2023 12:43 PM EST Narrative Resulting Agency Comment Spec In Lab Priya Charles CARE CENTER MANAGER CHEMISTRY ORDERA BLES [facility] [place] [address] * (ABNORMAL) Vitamin B12 (07/13/2023 12:38 PM EST) [facility] Vitamin B-12 1,754(H) 232 - 1,245 pg/mL [facility] Blood 07/13/2023 12:3 8 PM EST 07/13/2023 12:43 PM EST Narrative Resulting Agency Comment Spec In Lab Priya Charles APRN CHEMISTRY ORDERA BLES Performing Organization Address [facility]/ZIP Co de Phone Number [facility] [place] [address] * (ABNORMAL) Vitamin B1, whole blood (07/13/2023 12:38 PM EST) [facility] Vit B1 Lvl WB 189(H) 70 - 180 nmol/L [facility] Comment: ADDITIONAL INFORMATION This test was developed and its performance characteristics determined by [facility] in a manner consistent with CLIA requirements. This test has not been cleared or approved by the U.S. Food and Drug Administration. Test Performed by: [facility] [place] [id number] Filling Station Laborer: Skinny Reyes M.D. Ph.D.; CLIA# [id number] Blood 07/13/2023 12:3 8 PM EST 07/14/2023 9:55 AM EST Narrative Resulting Agency Comment Spec In Lab Priya Charles APRN CHEMISTRY ORDERA BLES Performing Organization Address City/[facility]/ZIP Co de Phone Number [facility] [place] [address] * PTH (07/13/2023 12:38 PM EST) [facility] PTH 46 15 - 65 pg/mL [facility] Blood 07/13/2023 12:3 8 PM EST 07/13/2023 12:43 PM EST Narrative Resulting Agency Comment Spec In Lab Priyaeunice Ricoliher VARGAS CHEMISTRY ORDERA BLES Performing Organization Address [facility]/ZIP Co de Phone Number [facility] [place] [address] * Iron and TIBC (07/13/2023 12:38 PM EST) Iron 74 30 - 150 mcg/dL [facility] TIBC 344 250 - 450 mcg/dL [facility] Iron Saturation 22 20 - 50 % [facility] Blood 07/13/2023 12:3 8 PM EST 07/13/2023 12:43 PM EST Narrative Resulting Agency Comment Spec In Lab Priya Charles APRN CHEMISTRY ORDERA BLES Performing Organization Address [facility] Co de Phone Number [facility] [place] [address] * (ABNORMAL) Hemogram (07/13/2023 12:38 PM EST) WBC 11.1(H) 4.0 - 9.5 x10(3)/[facility] LABORATORY RBC 4.53 4.00 - 5.21 x10(6)/[facility] LABORATORY Hemoglobin 14.3 11.7 - 15.5 g/dL [facility] Hematocrit 44.5 35.7 - 45.8 % [facility] MCV 98.2(H) 82.6 - 94.4 fL [facility] MCH 31.6 27.1 - 32.0 pg [facility] MCHC 32.1 31.7 - 35.0 g/dL [facility] Platelets 226 145 - 357 x10(3)/[facility] LABORATORY RDWSD 52.4(H) 37.0 - 46.0 fL [facility] RDWCV 14.4(H) 11.5 - 14.1 % [facility] MPV 9.4 7.6 - 12.9 fL [facility] nRBC % Auto 0.0 % [facility] nRBC Abs Auto 0.000 0.000 - 0.000 x10(3)/mcL [facility] Blood 07/13/2023 12:3 8 PM EST 07/13/2023 12:43 PM EST Narrative Resulting Agency Comment Spec In Lab Priya Charles APRN HEMATOLOGY ORDER MORENO Performing Organization Address [facility] Co de Phone Number [facility] [place] [address] * Folate, serum (07/13/2023 12:38 PM EST) Folate Lvl 16.5 4.8 - 24.2 ng/mL [facility] Blood 07/13/2023 12:3 8 PM EST 07/13/2023 12:43 PM EST Narrative Resulting Agency Comment Spec In Lab Priya Charles APRN CHEMISTRY ORDERA BLES Performing Organization Address [facility] Co de Phone Number [facility] [place] [address] * Ferritin (07/13/2023 12:38 PM EST) Ferritin 46 11 - 328 ng/mL [facility] Comment: Please note that as of 06/29/2023, the reference intervals for Ferritin have been updated. Blood 07/13/2023 12:3 8 PM EST 07/13/2023 12:43 PM EST Narrative Resulting Agency Comment Spec In Lab Priya Charles APRN CHEMISTRY ORDERA BLES Performing Organization Address City/[facility]/ZIP Co de Phone Number [facility] [place] [address] * (ABNORMAL) Comprehensive metabolic panel (non-fasting) (07/13/2023 12:38 PM EST) Glucose Lvl 131 65 - 199 mg/dL [facility] Comment:Diabetes: >=200 mg/d L plus symptoms BUN 24(H) 8 - 18 mg/dL [facility] Creatinine 0.69(L) 0.70 - 1.20 mg/dL [facility] Sodium 139 135 - 145 mmol/L [facility] Potassium 4.5 3.5 - 5.0 mmol/L [facility] Comment: Please note: ??Patients with WBC >100,000 may have falsely elevated Potassium levels. ??For accurate Potassium quantification in these patients send serum separator tube (gold top) for subsequent determinations. ??Contact the Clinical Chemistry Laboratory if there are any questions. Chloride 100 98 - 107 mmol/L [facility] CO2 30 22 - 31 mmol/L [facility] Anion Gap 9 5 - 15 mmol/L [facility] Calcium 10.0 8.5 - 10.5 mg/dL [facility] Total Protein 6.9 6.1 - 8.0 g/dL [facility] Albumin 4.4 3.2 - 5.2 g/dL [facility] AST 20 0 - 30 unit/L [facility] ALT 21 0 - 30 unit/L [facility] Alk Phos 97 35 - 105 unit/L [facility] Total Bilirubin <0.2(L) 0.2 - 1.3 mg/dL [facility] Estimated GFR 97 >=60 mL/min/1. 73 m?? [facility] Comment: This patient's estimated GFR [...] Lab Priya Charles APRN CHEMISTRY ORDERA BLES [facility] [place] [address] documented in this encounter Visit Diagnoses Diagnosis S/P gastric bypass Bariatric surgery status Disorder of iron metabolism Other disorders of iron metabolism Intestinal malabsorption, unspecified type documented in this encounter Care Teams Bowling Teacher Relationship Specialty Start Date End Date Hoang Castellanos APRN [address] [place] [address] PCP - General Family Medicine 03/12/20 documented as of this encounter
--- OUTSIDE RECORDS SUMMARY | 2024-02-22 00:45 | XMS_ITS | Encounter Summary ---
Author Organization [facility] Address [facility] [place] [address] Care Team Providers Care Patient Services Rep Name Role Phone Hoang Castellanos APRN Primary Care Provider Encounter Details Date Type Department Care Team (Late st Contact Info) Description 05/06/2022 Telephone Primary Care at [facility] [place] [phone] Prior, Gabriela Cruz Social History Tobacco Use Types Packs/Day Years [...] slept in a jail (including now)? No 03/23/2022 Sex and Gender Information Value Date Recorded Sex Assigned at Not on file Gender Identity Not on file Sexual Orientation Not on file documented as of this encounter Miscellaneous Notes * Telephone Encounter - Gabriela Torres - 05/06/2022 1:50 PM EDT Msg from PT on PSW line: PT wanted to know if release was rec'd for [facility] Called back: Advised release had been rec'd documented in this encounter Plan of Treatment Not on file documented as of this encounter Visit Diagnoses Not on filedocumented in this encounter Care Teams Patient Services Rep Relationship Specialty Start Date End Date Hoang Castellanos APRN [address] [place] [address] PCP - General Family Medicine 03/12/20 documented as of this encounter
--- OUTSIDE RECORDS SUMMARY | 2024-02-22 00:45 | XMS_ITS | Encounter Summary ---
Author Organization [facility] [address] Care Team Providers Care Litigation Services Manager Name Role Phone Hoang Castellanos APRN Primary Care Provider [phone] Encounter Details Date Type Department Care Team (Latest Contact Info) Description 05/26/2022 1:30 PM EDT TH Visit (TeleHealth) Primary Care at [facility] [address] [facility] [place] [phone] Hoang Castellanos APRN [address] [place] [address] Cervical spinal stenosis; Arthrodesis present; Right leg weakness; Administrative encounter; Bipolar affective disorder, remission status unspecified Social History Tobacco Use Types Packs/Day Years [...] as of this encounter Progress Notes * Hoang Castellanos, LOGISTICS VICE PRESIDENT - 05/26/2022 1:30 PM EDT [facility] Telehealth Encounter Nurse Call: Patient called to notify of telehealth visit. For patients in facilities or with caregivers, these were also notified. BEST PHONE NUMBER: [phone] Is this a cell phone number: yes Patient or family advised that telehealth visit will be conducted similar to office/home visit and may ultimately be billable. Patient or family agrees to visit: yes Patient advised to check vital signs prior to visit to report to provider if possible (for patientsin facility setting, nursing staff asked to obtain vitals in advance). Subjective: HPI: Jeannie Rico is a 61 y.o. female who presents for a telehealth visit with [facility] Primary Care. Concerns: 1. Paperwork Chronic care needs Urinary incontinence, occasional fecal incontinence RLE weakness Cervical stenosis, chronic neck pain PTSD/LAURA/bipolar disorder Moving to a facility in [facility] Will be switching her primary care Objective: VS: Physical Exam Assessment and Plan: Diagnoses and all orders for this visit: Cervical spinal stenosis Arthrodesis present Right leg weakness Administrative encounter On the day of this encounter, I the medical provider spent a total of at least 20 minutes providingthis patient's care. This includes time spent [id number] with the patient performing evaluation, examination, and counseling. It also includes non [id number] time preparing to see the patient, reviewing the chart, coordinating care, and documenting clinical information in the electronic health record. (Established patient total visit time: 84541 - 20min, 87022 - 30 min, 32742 - 40 min; New patient total visit times: 55074 - 30 min, 16913 - 45 min, 52402 - 60 min) Follow-up: No follow-ups on file. documented in this encounter Plan of Treatment Not on file documented as of this encounter Visit Diagnoses Diagnosis Cervical spinal stenosis Spinal stenosis in cervical region Arthrodesis present Arthrodesis status Right leg weakness Other musculoskeletal symptoms referable to limbs Administrative encounter Encounters for unspecified administrative purpose Bipolar affective disorder, remission status unspecified documented in this encounter Care Teams Litigation Services Manager Relationship Specialty Start Date End Date Hoang Castellanos APRN [address] [place] [address] PCP - General Family Medicine 03/12/20 documented as of this encounter
--- OUTSIDE RECORDS SUMMARY | 2024-02-22 00:45 | XMS_ITS | Encounter Summary ---
[place] [address] Care Team Providers Care Third Mate Name Role Phone Haong Castellanos APRN Primary Care Provider Reason for Referral * Consultation (Routine) - Closed Specialty Diagnoses / Procedures Referred By Vanita t Referred To Contact Hematology and Oncology Diagnoses Macrocytosis Anemia, unspecified type Jolly Davenport APRN [address] [place] [address] [facility] [address] [place] [address] Referral ID Status Reason Start Date Expiration Date V isits Requested Visits Authorized [id number] Closed Consult, Test & Treat PCP Updated and/or Approved 03/31/2023 03/30/2024 12 12 Encounter Details Date Type Department Care Team (Latest Contact Info) Description 03/31/2023 Transcribe Orders eDH Incoming Referrals [phone] Jolly Davenport APRN [address] [place], [place] [address] Macrocytosis; Anemia, unspecified type Social History Tobacco Use Types [...] place to sleep or slept in a group home (including now)? No 03/23/2022 Sex and Gender Information Value Date Recorded Sex Assigned at Not on file Gender Identity Not on file Sexual Orientation Not on file documented as of this encounter Plan of Treatment Scheduled Referrals Name Type Priority Associated Diagnoses Orde r Schedule Referral to Hematology and Oncology Outpatient Referral Routine Macrocytosis Anemia, unspecified type Ordered: 03/31/2023 documented as of this encounter Visit Diagnoses Diagnosis Macrocytosis Other specified diseases of blood and blood-forming organs Anemia, unspecified type documented in this encounter Care Teams Third Mate Relationship Specialty Start Date End Date Hoang Castellanos, AUTOMATIC VULCANIZING LEAD OPERATOR [address] [place] [address] PCP - General Family Medicine 03/12/20 documented as of this encounter
--- OUTSIDE RECORDS SUMMARY | 2024-02-22 00:45 | XMS_ITS | Encounter Summary ---
Author Organization [facility] Address [facility] [place] [address] Care Team Providers Care Note Taker Name Role Phone Hoang Castellanos APRN Primary Care Provider Encounter Details Date Type Department Care Team (Late st Contact Info) Description 07/14/2023 Telephone [place] [phone] Meena Hastings, JEREMY [facility] [place] [address] Social History Tobacco Use Types Packs/Day Years [...] money to buy more. Never true 04/14/20 Within the past 12 months, t he [...] slept in a longterm (including now)? No 04/14/2023 Sex and Gender Information Value Date Recorded Sex Assigned at Not on file Gender Identity Not on file Sexual Orientation Not on file documented as of this encounter Miscellaneous Notes * Telephone Encounter - Meena Hastings, RD - 07/14/2023 3:48 PM EST Called [facility] after appt with Jeannie on 07/13/23 and spoke with Daniella, the nursing educator. Reviewed vitamin and mineral supplement recommendation with Daniella and the typical cost of the supplements. As discussed during Jeannie's visit, the vitamin and mineral s upplements are recommended for life after bariatric surgery and the cost of her current supplement plan is less than what we typically see. Advised Daniella that I would send a written copy of the vitamin and mineral supplements to her to have documented. Daniella requested a endoscopy nurse of Jeannie's labwork be sent to the [facility]. Asked Daniella about Jeannie's gluten-free diet. Daniella reported that Jeannie has struggled with pain management since joining the [facility] about 1 yr ago. Jeannie will not take many pain medications given her history of addiction. Daniella reported that Jeannie wanted to try cannabis for pain managementand found it helpful but expensive. Daniella reported that in discussions with Jeannie's PCP they discussed trying a gluten-free diet to see if it would help with inflammation and reduce pain. Daniella reported that Jeannie has difficulty following the diet and was upset with the meal options provided. Daniella reported that Jeannie had a;ready been taken off of the gluten-free diet. Briefly discussed dietary recommendations for patients s/p bariatric surgery and advised Daniella that I would also send her awritten copy of our protein, carbohydrate, and fluid recommendations. Advised Daniella that Jessica Mcfarland APRN would also call Jeannie's PCP to discuss POC. documented in this encounter Plan of Treatment Not on file documented as of this encounter Visit Diagnoses Not on filedocumented in this encounter Care Teams Note Taker Relationship Specialty Start Date End Date Hoang Castellanos APRN [address] [place] [address] PCP - General Family Medicine 03/12/20 documented as of this encounter
--- OUTSIDE RECORDS SUMMARY | 2024-02-22 00:45 | XMS_ITS | Encounter Summary ---
[place] [address] Care Team Providers Care Stone [employer]ter [employer] Name Role Phone Hoang Castellanos APRN Primary Care Provider Encounter Details Date Type Department Care Team (Latest Contact Info) Description 07/13/2023 12:30 PM EST Laboratory Appointment Lab [address] [place] [id number] S/P gastric bypass; Disorder of iron metabolism; [...] slept in a fpc (including now)? No 04/14/2023 Sex and Gender Information Value Date Recorded Sex Assigned at Not on file Gender Identity Not on file Sexual Orientation Not on file documented as of this encounter Plan of Treatment Not on file documented as of this encounter Procedures Procedure Name Priority Date/Time Associated Diagnosis Comments HC PARATHYROID HORMONE(PTH INTACT Routine 07/13/2023 12:38 PM EST S/P gastric bypass Disorder of iron metabolism Intestinal malabsorption, unspecified type HC HEMOGRAM Routine 07/13/2023 12:38 PM EST S/P gastric bypass Disorder of iron metabolism Intestinal malabsorption, unspecified type HC PCH THIAMIN LVL(VITAMIN B1) WB-PERALTA Routine 07/13/2023 12:38 PM EST S/P gastric bypass Disorder of iron metabolism Intestinal malabsorption, unspecified type HC IRON BINDING CAPACITY Routine 07/13/2023 12:38 PM EST S/P gastric bypass Disorder of iron metabolism Intestinal malabsorption, unspecified type HC VITAMIN D TOTAL-25 HYDROXY Routine 07/13/2023 12:38 PM EST S/P gastric bypass Disorder of iron metabolism Intestinal malabsorption, unspecified type HC FOLATE, SERUM Routine 07/13/2023 12:3 8 PM EST S/P gastric bypass Disorder of iron metabolism Intestinal malabsorption, unspecified type HC FERRITIN, SERUM Routine 07/13/2023 12 :38 PM EST S/P gastric bypass Disorder of iron metabolism Intestinal malabsorption, unspecified type HC VITAMIN B12 SERUM Routine 07/13/2023 12:38 PM EST S/P gastric bypass Disorder of iron metabolism Intestinal malabsorption, unspecified type COMPREHENSIVE METABOLIC PANEL (NON-FASTING) Routine 07/13/2023 12:38 PM EST S/P gastric bypass Disorder of iron metabolism Intestinal malabsorption, unspecified type documented in this encounter Results * (ABNORMAL) Comprehensive metabolic panel (non-fasting) (07/13/2023 12:38 PM EST) [facility] Glucose Lvl 131 65 - 199 mg/dL [facility] Comment:Diabetes: >=200 mg/d L plus symptoms BUN 24(H) 8 - 18 mg/dL [facility] Creatinine 0.69(L) 0.70 - 1.20 mg/dL [facility] Sodium 139 135 - 145 mmol/L [facility] Potassium 4.5 3.5 - 5.0 mmol/L [facility] Comment: Please note: ??Patients with WBC >100,000 may have falsely elevated Potassium levels. ??For accurate Potassium quantification in these patients send serum separator tube (gold top) for subsequent determinations. ??Contact the Clinical Chemistry Laboratory if there are any questions. Chloride 100 98 - 107 mmol/L [facility] CO2 30 22 - 31 mmol/L [facility] Anion Gap 9 5 - 15 mmol/L [facility] Calcium 10.0 8.5 - 10.5 mg/dL [facility] Total Protein 6.9 6.1 - 8.0 g/dL [facility] Albumin 4.4 3.2 - 5.2 g/dL [facility] AST 20 0 - 30 unit/L [facility] ALT 21 0 - 30 unit/L [facility] Alk Phos 97 35 - 105 unit/L [facility] Total Bilirubin <0.2(L) 0.2 - 1.3 mg/dL [facility] Estimated GFR 97 >=60 mL/min/1. 73 m?? [facility] Comment: This patient's estimated GFR was [...] APRN CHEMISTRY ORDERA BLES Performing Organization Address [facility] Co de Phone Number [facility] [place] [address] * Ferritin (07/13/2023 12:38 PM EST) Ferritin 46 11 - 328 ng/mL [facility] Comment: Please note that as of 06/29/2023, the reference intervals for Ferritin have been updated. Blood 07/13/2023 12:3 8 PM EST 07/13/2023 12:43 PM EST Narrative Resulting Agency Comment Spec In Lab Priya Charles APRN CHEMISTRY ORDERA BLES Performing Organization Address City/[facility]/ZIP Co de Phone Number [facility] [place] [address] * Folate, serum (07/13/2023 12:38 PM EST) Folate Lvl 16.5 4.8 - 24.2 ng/mL [facility] Blood 07/13/2023 12:3 8 PM EST 07/13/2023 12:43 PM EST Narrative Resulting Agency Comment Spec In Lab Priya Charles MANAGER [employer] CHEMISTRY ORDERA BLES [facility] [place] [address] * (ABNORMAL) Hemogram (07/13/2023 12:38 PM EST) Pathologist [facility] WBC 11.1(H) 4.0 - 9.5 x10(3)/[facility] RBC 4.53 4.00 - 5.21 x10(6)/[facility] Hemoglobin 14.3 11.7 - 15.5 g/dL [facility] Hematocrit 44.5 35.7 - 45.8 % [facility] MCV 98.2(H) 82.6 - 94.4 [facility] MCH 31.6 27.1 - 32.0 pg [facility] MCHC 32.1 31.7 - 35.0 g/dL [facility] Platelets 226 145 - 357 x10(3)/[facility] LAB[facility] RDWSD 52.4(H) 37.0 - 46.0 [facility] RDWCV 14.4(H) 11.5 - 14.1 % [facility] MPV 9.4 7.6 - 12.9 [facility] nRBC % Auto 0.0 % [facility] nRBC Abs Auto 0.000 0.000 - 0.000 x10(3)/[facility] Blood 07/13/2023 12:3 8 PM EST 07/13/2023 12:43 PM EST Narrative Resulting Agency Comment Spec In Lab Priya Charles APRN HEMATOLOGY ORDER MORENO Performing Organization Address [facility] de Phone Number [facility] [place] [address] * Iron and TIBC (07/13/2023 12:38 PM EST) Iron 74 30 - 150 mcg/dL [facility] TIBC 344 250 - 450 mcg/dL [facility] Iron Saturation 22 20 - 50 % [facility] Blood 07/13/2023 12:3 8 PM EST 07/13/2023 12:43 PM EST Narrative Resulting Agency Comment Spec In Lab Priya Charles APRN CHEMISTRY ORDERA BLES Performing Organization Address [facility] de Phone Number [facility] [place] [address] * PTH (07/13/2023 12:38 PM EST) PTH 46 15 - 65 pg/mL [facility] Blood 07/13/2023 12:3 8 PM EST 07/13/2023 12:43 PM EST Narrative Resulting Agency Comment Spec In Lab Priya Charles APRN CHEMISTRY ORDERA BLES Performing Organization Address [facility] de Phone Number [facility] [place] [address] * (ABNORMAL) Vitamin B1, whole blood (07/13/2023 12:38 PM EST) Vit B1 Lvl WB 189(H) 70 - 180 nmol/L [facility] Comment: ADDITIONAL INFORMATION This test was developed and its performance characteristics determined by [facility] in a manner consistent with CLIA requirements. This test has not been cleared or approved by the U.S. Food and Drug Administration. Test Performed by: [facility], [place] [address] [place] [id number] [address] [place]: Skinny Reyes M.D. Ph.D.; CLIA# [id number] Blood 07/13/2023 12:3 8 PM EST 07/14/2023 9:55 AM EST Narrative Resulting Agency Comment Spec In Lab Priya Charles APRN CHEMISTRY ORDERA BLES Performing Organization Address City/[facility]/ZIP Co de Phone Number [facility] [place] [place] [address] * (ABNORMAL) Vitamin B12 (07/13/2023 12:38 PM EST) Vitamin B-12 1,754(H) 232 - 1,245 pg/mL [facility] Blood 07/13/2023 12:3 8 PM EST 07/13/2023 12:43 PM EST Narrative Resulting Agency Comment Spec In Lab Priya Charles APRN CHEMISTRY ORDERA BLES Performing Organization Address [facility]/ZIP Co de Phone Number [facility] [place] [address] * Vitamin D, 25-Hydroxy (07/13/2023 12:38 PM EST) 25-OH Vit D Total 56 21 - 100 ng/mL [facility] 25-OH Vit D Interp Sufficient [facility] Blood 07/13/2023 12:3 8 PM EST 07/13/2023 12:43 PM EST Narrative Resulting Agency Comment Spec In Lab Priya Charles APRN CHEMISTRY ORDERA BLES Performing Organization Address City/[facility]/ZIP Co de Phone Number [facility] [place] [address] documented in this encounter Visit Diagnoses Diagnosis S/P gastric bypass Bariatric surgery status Disorder of iron metabolism Other disorders of iron metabolism Intestinal malabsorption, unspecified type documented in this encounter Care Teams [employer] Relationship Specialty Start Date End Date Hoang Castellanos, MANAGER [employer] [address] [place] [address] PCP - General Family Medicine 03/12/20 documented as of this encounter
--- OUTSIDE RECORDS SUMMARY | 2024-02-22 00:45 | XMS_ITS | Encounter Summary ---
Author Organization [facility] [place] [address] Care Team Providers Care Rabbit Dresser Name Role Phone Hoang Castellanos APRN Primary Care Provider Encounter Details Date Type Department Care Team (Late st Contact Info) Description 05/21/2022 Home Care Visit [facility] Choices for Care [address] [place] [phone] Farrah Jama [facility] [place] DISCHARGE Social History Tobacco Use Types Packs/Day Years [...] on filedocumented in this encounter Care Teams Rabbit Dresser Relationship Specialty Start Date End Date Hoang Castellanos, SMA [address] [place] [address] PCP - General Family Medicine 03/12/20 documented as of this encounter
--- OUTSIDE RECORDS SUMMARY | 2024-02-22 00:45 | XMS_ITS | Data Portability ---
Author Organization [place] - [facility] [place] [address] Assessment Encounter Date Assessment Date Assessment LastModified by Organization Details LastModified Time 06/30/2023 06/30/2023 Cominarty vaccine provided today. Tolerated well. Observed, no reactions occurred. Not available 06/28/2023 12:42:35 07/14/2023 07/14/2023 The total time devoted to today's encounter, including both the jfiz-up-coki time with the patient and/or family/caregi thanh and fqh-qakf-ve-f noa time I personally spent is 65 minutes. [facility] Orders: 1. CBCD, iron, ferritin, TIBC, calcium, PTH, CMP, vitamin B12, vitamin D, thiamine, A1C, lamictal level, TSH with R- Due Aug 17 2. Miralax 1 cap PO BID 3. D/C diclofenac 4. D/C magnesium Not available 07/14/2023 11:34:01 10/20/2023 10/20/2023 The total time devoted to today's encounter, including both the xnep-jo-pulw time with the patient and/or family/caregi thanh and lzd-pcmo-dm-f noa time I personally spent is 30 minutes. Follow-up in 6 Months. Call or RTO sooner if needs arise. [facility] Orders: 1. CBCD, iron, ferritin, TIBC, calcium, PTH, CMP, vitamin B12, vitamin D, thiamine, A1C, lamictal level, Due Jul 2024. 2. TSH with R 10/15 3. UA/ MA next 01/15 4. LDCT scan due February 14 Not available 10/20/2023 09:04:27 Plan of Treatment Reminders Order Date Submit Date Provider Last Modified By Organization Details Last Modified Time Details Appointments Home Visit 2023 09:00A M DAMARI CHAPMAN Not available Not available Not available Lab CBC w/ diff 2022 024 [email or web address] [facility] (Registration ), [address] [place] [address] [place], [address], 08/08/2023 08:52:07 iron + TIBC + ferritin, serum 2022 024 [email or web address] [facility] (Registration ), [address] [place] [address] [place], [address], 08/08/2023 08:52:08 CMP, serum or plasma 2022 024 [email or web address] [facility] (Registration ), [address] [place] [address] [place], [address], 08/08/2023 08:52:08 vitamin B12, serum 2022 024 [email or web address] [facility] (Registration ), [address] [place] [address] [place], [address], 08/08/2023 08:52:08 vitamin D, 25-hydrox y, total, serum [address] Laboratory (Registration ), [address] [place] [address] [place], [address], 08/08/2023 08:52:08 vitamin B1 (thiamine ), blood 2022 024 [email or web address] [facility] (Registration ), [address] [place] [address] [place], [address], 08/08/2023 08:52:08 HbA1c (hemoglob in A1c), blood [address] [facility] (Registration ), [address] [place] [address] [place], [address], 08/08/2023 08:52:08 PTH (parathyr oid hormone), intact, serum or plasma [address] Laboratory (Registration ), [address] [place] [address] [place], [address], 08/30/2023 04:31:33 magnesium , serum or plasma [address] [facility] (Registration ), [address] [place] [address] [place], [address], 08/30/2023 04:31:32 TSH, serum, reflex free T4 [address] [facility] (Registration ), [address] [place] [address] [place], [address], 11/21/2023 09:18:41 urinalysi s, complete [address] [facility] (Registration ), [address] [place] [address] [place], [address], 01/23/2024 11:04:38 microalbu min/creat inine, ratio panel, urine [address] [facility] (Registration ), [address] [place] [address] [place], [address], 01/23/2024 11:04:52 CBC w/ diff [address] [facility] (Registration ), [address] [place] [address] [place], [address], 10/20/2023 09:04:33 iron + TIBC + ferritin, serum 2023 024 [email or web address] [facility] (Registration ), [address] [place] [address] [place], [address], 10/27/2023 14:08:01 CMP, serum or plasma [address] [facility] (Registration ), [address] [place] [address] [place], [address], 10/20/2023 09:04:33 vitamin B12, serum [address] [facility] (Registration ), [address] [place] [address] [place], [address], 10/20/2023 09:04:33 vitamin D, 25-hydrox y, total, serum [address] [facility] (Registration ), [address] [place] [address] [place], [address], 10/20/2023 09:04:34 vitamin B1 (thiamine ), blood [address] [facility] (Registration ), [address] [place] [address] [place], [address], 10/20/2023 09:04:34 HbA1c (hemoglob in A1c), blood [address] [facility] (Registration ), [address] [place] [address] [place], [address], 10/20/2023 09:04:34 PTH (parathyr oid hormone), intact, serum or plasma [address] [facility] (Registration ), [address] [place] [address] [place], [address], 10/20/2023 09:04:34 urinalysi s complete, reflex culture 2023 024 [facility] (Registration ), [address] [place] [address] [place], [address], 10/28/2023 09:06:37 urinalysi s complete, reflex culture 2023 024 [facility] (Registration ), [address] [place] [address] [place], [address], 11/01/2023 08:34:00 urinalysi s complete, reflex culture 2023 024 [email or web address] [facility] ([facility] ), [address] [place] [address] , [place], [address], 11/03/2023 11:01:11 urinalysi s complete, reflex culture 2023 024 [email or web address] [facility] ([facility] ), [address] [place] [address] [place], [address], 11/10/2023 12:55:05 urinalysi s complete, reflex culture 2023 024 [email or web address] [facility] ([facility] ), [address] [place] [address] [place], [address], 11/17/2023 09:39:13 urinalysi s complete, reflex culture 2023 024 [email or web address] [facility] ([facility] ), [address] [place] [address] [place], [address], 11/24/2023 08:17:11 urinalysi s complete, reflex culture 2023 024 [facility] ([facility] ), [address] [place] [address] [place], [address], 12/01/2023 10:25:37 urinalysi s complete, reflex culture 2023 024 [email or web address] [facility] (Registration ), [address] [place] [address] [place], [address], 12/15/2023 08:17:14 urinalysi s complete, reflex culture 2023 024 [email or web address] [facility] (Registration ), [address] [place] [address] [place], [address], 12/15/2023 09:51:29 urinalysi s complete, reflex culture 2023 024 [email or web address] [facility] (Registration ), [address] [place] [address] [place], [address], 12/22/2023 08:41:56 urinalysi s complete, reflex culture 2023 [facility]24 [email or web address] (Registration ), [address] [place] [address] [place], [address], 12/29/2023 13:36:34 urinalysi s complete, reflex culture 2023 024 [email or web address] [facility] (Registration ), [address] [place] [address] [place], [address], 01/05/2024 09:42:00 urinalysi s complete, reflex culture 2023 024 [facility] (Registration ), [address] [place] [address] [place], [address], 01/12/2024 12:28:35 urinalysi s complete, reflex culture 2023 024 [facility] (Registration ), [address] [place] [address] [place], [address], 01/19/2024 10:53:44 urinalysi s complete, reflex culture 2023 024 [facility] (Registration ), [address] [place] [address] [place], [address], 01/19/2024 10:53:44 TSH, serum, reflex free T4 [address] Laboratory (Registration ), [address] [place] [address] [place], [address], 11/08/2023 14:16:44 Referral None recorded. Procedures None recorded. Surgeries None recorded. Imaging LDCT, chest, for lung cancer screening - Due in February 142023 024 [facility] (Radiology), [address] [facility] [place], [address], 02/01/2024 08:13:39 Medication Orders Miralax 17 gram/dose oral powder [address], [address], 10/20/2023 09:00:53 Miralax 17 gram/dose oral powder [address], [address], 10/20/2023 09:04:47 docusate sodium 100 mg capsule [address], [address], 10/20/2023 10:27:53 senna 8.6 mg tablet [address], [address], 10/20/2023 10:27:53 omeprazol e 40 mg capsule,d elayed release [address], [address], 10/20/2023 09:04:48 Patient TargetsNo targets recorded. Patient InstructionsNo instructions recorded. Reason for Referral None Reported. Results Created Date Observation Date Name Description Value Unit Range Abnormal Flag LastModifiedBy Organization Detail LastModifiedTime 07/31/1907/31/2023 COMPL ETE BLOOD COUNT W/DIF F WBC 10.80 10_3/ uL 4.4-10 .8 normal Not Available [address] [place], [address] 07/31/2023 16:23:02 07/31/19 24 07/31/2023 COMPL ETE BLOOD COUNT W/DIF F RBC 4.25 10_6/ uL 3.93-5 .22 normal Not Available [address] [place], [address] 07/31/2023 16:23:02 07/31/19 24 07/31/2023 COMPL ETE BLOOD COUNT W/DIF F HGB 13.3 g/dL 11.2-1 5.7 normal Not Available [address] [place], [address] 07/31/2023 16:23:02 07/31/19 24 07/31/2023 COMPL ETE BLOOD COUNT W/DIF F HCT 41.6 % 36.0-4 6.0 normal Not Available [address] [place], [address] 07/31/2023 16:23:02 07/31/19 24 07/31/2023 COMPL ETE BLOOD COUNT W/DIF F MCV 98 fL 80-95 high Not Available [address] [place], [address] 07/31/2023 16:23:02 07/31/19 24 07/31/2023 COMPL ETE BLOOD COUNT W/DIF F MCH 31.3 pg 27.0-3 3.0 normal Not Available [address] [place], [address] 07/31/2023 16:23:02 07/31/19 24 07/31/2023 COMPL ETE BLOOD COUNT W/DIF F MCHC 32.0 % 32.0-3 6.0 normal Not Available [address] [place], [address] 07/31/2023 16:23:02 07/31/19 24 07/31/2023 COMPL ETE BLOOD COUNT W/DIF F RDW 14.7 % 11.7-1 4.6 high Not Available [address] [place], [address] 07/31/2023 16:23:02 07/31/19 24 07/31/2023 COMPL ETE BLOOD COUNT W/DIF F platelet count 250 10_3/ uL 130-40 0 normal Not Available [address] [place], [address] 07/31/2023 16:23:02 07/31/19 24 07/31/2023 COMPL ETE BLOOD COUNT W/DIF F MPV 9.8 fL 8.0-11 .0 normal Not Available [address] [place], [address] 07/31/2023 16:23:02 07/31/19 24 07/31/2023 COMPL ETE BLOOD COUNT W/DIF F neutrophils % 71.8 Not Available [address] [place], [address] 07/31/2023 16:23:02 07/31/19 24 07/31/2023 COMPL ETE BLOOD COUNT W/DIF F lymphocytes % 19.8 Not Available [address] [place], [address] 07/31/2023 16:23:02 07/31/19 24 07/31/2023 COMPL ETE BLOOD COUNT W/DIF F monocytes % 6.8 Not Available [address] [place], [address] 07/31/2023 16:23:02 07/31/19 24 07/31/2023 COMPL ETE BLOOD COUNT W/DIF F eosinophils % 0.6 Not Available [address] [place], [address] 07/31/2023 16:23:02 07/31/19 24 07/31/2023 COMPL ETE BLOOD COUNT W/DIF F basophils % 0.6 Not Available [address] [place], [address] 07/31/2023 16:23:02 07/31/19 24 07/31/2023 COMPL ETE BLOOD COUNT W/DIF F immature grans % 0.4 Not Available [address] [place], [address] 07/31/2023 16:23:02 07/31/19 24 07/31/2023 COMPL ETE BLOOD COUNT W/DIF F nucleated RBC 0.0 % 0.0-0. 3 normal Not Available [address] [place], [address] 07/31/2023 16:23:02 07/31/19 24 07/31/2023 COMPL ETE BLOOD COUNT W/DIF F absolute neutrophil count 7.76 10_3/ uL 1.2-6. 7 high Not Available [address] [place], [address] 07/31/2023 16:23:02 07/31/19 24 07/31/2023 COMPL ETE BLOOD COUNT W/DIF F absolute lymphocyte count 2.14 10_3/ uL 1.2-3. 4 normal Not Available [address] [place], [address] 07/31/2023 16:23:02 07/31/19 24 07/31/2023 COMPL ETE BLOOD COUNT W/DIF F absolute monocyte count 0.73 10_3/ uL 0.1-0. 8 normal Not Available [address] [place], [address] 07/31/2023 16:23:02 07/31/19 24 07/31/2023 COMPL ETE BLOOD COUNT W/DIF F absolute eosinophil count 0.06 10_3/ uL 0.0-0. 7 normal Not Available [address] [place], [address] 07/31/2023 16:23:02 07/31/19 24 07/31/2023 COMPL ETE BLOOD COUNT W/DIF F absolute basophil count 0.07 10_3/ uL 0.0-0. 2 normal Not Available [address] [place], [address] 07/31/2023 16:23:02 07/31/19 24 07/31/2023 HEMOG LOBIN A1C hemoglobin A1C 6.0 % <5.7 high Not Available [address] [place], [address] 07/31/2023 16:37:02 07/31/19 24 07/31/2023 IRON/ IBCT iron 81 ug/dL 50-170 normal Not Available [address] [place], [address] 07/31/2023 16:49:05 07/31/19 24 07/31/2023 IRON/ IBCT total iron binding capacity 326 ug/dL 250-45 0 normal Not Available [address] [place], [address] 07/31/2023 16:49:05 07/31/19 24 07/31/2023 IRON/ IBCT transferrin sat 25 % 15-50 normal Not Available [address] [place], [address] 07/31/2023 16:49:05 07/31/19 24 07/31/2023 VITAM IN D 25 TOTAL vitamin D 25 total 53.0 NG/mL 30-100 normal Not Available [address] [place], [address] 07/31/2023 17:08:09 07/31/19 24 07/31/2023 COMPR EHENS DARIUS METAB OLIC PANEL calcium 9.6 mg/dL 8.5-10 .1 normal Not Available [address] [place], [address] 07/31/2023 17:08:10 07/31/19 24 07/31/2023 COMPR EHENS DARIUS METAB OLIC PANEL glucose 81 mg/dL 74-106 normal Not Available [address] [place], [address] 07/31/2023 17:08:10 07/31/19 24 07/31/2023 COMPR EHENS DARIUS METAB OLIC PANEL BUN 25 mg/dL 7-18 high Not Available [address] [place], [address] 07/31/2023 17:08:10 07/31/19 24 07/31/2023 COMPR EHENS DARIUS METAB OLIC PANEL creatinine 1.0 mg/dL 0.55-1 .02 normal Not Available [address] [place], [address] 07/31/2023 17:08:10 07/31/19 24 07/31/2023 COMPR EHENS DARIUS METAB OLIC PANEL estimated GFR 63.30 mL/min /1.73m 2 Not Available [address] [place], [address] 07/31/2023 17:08:10 07/31/19 24 07/31/2023 COMPR EHENS DARIUS METAB OLIC PANEL total protein 6.4 g/dL 6.4-8. 2 normal Not Available [address] [place], [address] 07/31/2023 17:08:10 07/31/19 24 07/31/2023 COMPR EHENS DARIUS METAB OLIC PANEL albumin 3.6 g/dL 3.4-5. 0 normal Not Available [address] [place], [address] 07/31/2023 17:08:10 07/31/19 24 07/31/2023 COMPR EHENS DARIUS METAB OLIC PANEL bilirubin, total 0.3 mg/dL 0.2-1. 0 normal Not Available [address] [place], [address] 07/31/2023 17:08:10 07/31/19 24 07/31/2023 COMPR EHENS DARIUS METAB OLIC PANEL alk phos 94 U/L 46-116 normal Not Available [address] [place], [address] 07/31/2023 17:08:10 07/31/19 24 07/31/2023 COMPR EHENS DARIUS METAB OLIC PANEL sodium 138 mmol/ L 136-14 5 normal Not Available [address] [place], [address] 07/31/2023 17:08:10 07/31/19 24 07/31/2023 COMPR EHENS DARIUS METAB OLIC PANEL potassium 4.9 mmol/ L 3.5-5. 1 normal Not Available [address] [place], [address] 07/31/2023 17:08:10 07/31/19 24 07/31/2023 COMPR EHENS DARIUS METAB OLIC PANEL chloride 101 mmol/ L 98-107 normal Not Available [address] [place], [address] 07/31/2023 17:08:10 07/31/19 24 07/31/2023 COMPR EHENS DARIUS METAB OLIC PANEL CO2 32.7 mmol/ L 21.0-3 2.0 high Not Available [address] [place], [address] 07/31/2023 17:08:10 07/31/19 24 07/31/2023 COMPR EHENS DARIUS METAB OLIC PANEL anion gap 4.3 mmol/ L 3-11 normal Not Available [address] [place], [address] 07/31/2023 17:08:10 07/31/19 24 07/31/2023 COMPR EHENS DARIUS METAB OLIC PANEL AST 12 U/L 15-37 low Not Available [address] [place], [address] 07/31/2023 17:08:10 07/31/19 24 07/31/2023 COMPR EHENS DARIUS METAB OLIC PANEL ALT 22 U/L 14-59 normal Not Available [address] [place], [address] 07/31/2023 17:08:10 07/31/19 24 07/31/2023 ELSY TIN ferritin 42 NG/mL 8-252 normal Not Available [address] [place], [address] 07/31/2023 17:08:11 07/31/19 24 07/31/2023 VITAM IN B12 vitamin B12 1898 pg/mL 193-98 6 high Not Available [address] [place], [address] 07/31/2023 17:08:11 07/31/19 24 08/05/2023 JOSIAH IN (PASQUALE MIN B1), WB thiamin (vitamin B1), WB 184 nmol/ L 70-180 abnormal Not Available [address] [place], [address] 08/05/2023 15:52:45 10/27/19 24 10/27/2023 TSH (W/RE F FT4) TSH (w/ref FT4) 2.01 uIU/m L 0.36-3 .74 normal Not Available [address] [place], [address] 10/28/2023 10:23:48 01/01/20 24 01/01/2024 URINA LYSIS color Yellow yellow Not Available [address] [place], [address] 01/01/2024 12:01:17 01/01/20 24 01/01/2024 URINA LYSIS clarity Clear clear Not Available [address] [place], [address] 01/01/2024 12:01:17 01/01/20 24 01/01/2024 URINA LYSIS specific gravity 1.020 1.005- 1.025 normal Not Available [address] [place], [address] 01/01/2024 12:01:17 01/01/20 24 01/01/2024 URINA LYSIS pH 7.0 5-8 normal [facility] [address] [place], [address] 01/01/2024 12:01:17 01/01/20 24 01/01/2024 URINA LYSIS leukocyte esterase Small negati ve abnormal Not Available [address] [place], [address] 01/01/2024 12:01:17 01/01/20 24 01/01/2024 URINA LYSIS nitrite Negati ve negati ve Not Available [address] [place], [address] 01/01/2024 12:01:17 01/01/20 24 01/01/2024 URINA LYSIS protein Negati ve mg/dL neg-tr noa Not Available [address] [place], [address] 01/01/2024 12:01:17 01/01/20 24 01/01/2024 URINA LYSIS glucose Negati ve mg/dL negati ve Not Available [address] [place], [address] 01/01/2024 12:01:17 01/01/20 24 01/01/2024 URINA LYSIS ketones Negati ve mg/dL negati ve Not Available [address] [place], [address] 01/01/2024 12:01:17 01/01/20 24 01/01/2024 URINA LYSIS urobilinogen 0.2 mg/dL up to 0.2 Not Available [address] [place], [address] 01/01/2024 12:01:17 01/01/20 24 01/01/2024 URINA LYSIS bilirubin Negati ve negati ve Not Available [address] [place], [address] 01/01/2024 12:01:17 01/01/20 24 01/01/2024 URINA LYSIS blood Negati ve negati ve Not Available [address] [place], [address] 01/01/2024 12:01:17 01/01/20 24 01/01/2024 MICRO SCOPI C FINDI NGS WBC 10-20 hpf 0-5 abnormal Not Available [address] [place], [address] 01/01/2024 12:01:19 01/01/20 24 01/01/2024 MICRO SCOPI C FINDI NGS RBC Negati ve hpf 0-2 Not Available [address] [place], [address] 01/01/2024 12:01:19 01/01/20 24 01/01/2024 MICRO SCOPI C FINDI NGS epithelial cells Few hpf negati ve Not Available [address] [place], [address] 01/01/2024 12:01:19 01/01/20 24 01/01/2024 MICRO SCOPI C FINDI NGS bacteria Rare hpf negati ve Not Available [address] [place], [address] 01/01/2024 12:01:19 01/01/20 24 01/01/2024 MICRO SCOPI C FINDI NGS crystals Negati ve hpf negati ve Not Available [address] [place], [address] 01/01/2024 12:01:19 01/01/20 24 01/01/2024 MICRO SCOPI C FINDI NGS mucus Negati ve negati ve Not Available [address] [place], [address] 01/01/2024 12:01:19 01/01/20 24 01/01/2024 MICRO SCOPI C FINDI NGS casts Negati ve lpf negati ve Not Available [address] [place], [address] 01/01/2024 12:01:19 01/01/20 24 01/01/2024 MICRO SCOPI C FINDI NGS C S indicated? Yes Not Available [address] [place], [address] 01/01/2024 12:01:19 01/01/20 24 01/01/2024 MICRO ALBUM IN microalbumin 8.6 mg/L 1.30-2 0.0 normal Not Available [address] [place], [address] 01/01/2024 13:04:19 01/01/20 24 01/01/2024 MICRO ALBUM IN creatinine urine 103.44 mg/dL Not Available [address] [place], [address] 01/01/2024 13:04:19 01/01/20 24 01/01/2024 MICRO ALBUM IN microalb ug/mg crea 8.3 ug/mg _cr Not Available [address] [place], [address] 01/01/2024 13:04:19 01/01/20 24 01/02/2024 URINE CULTU RE urine culture Not Available [address] [place], [address] 01/02/2024 07:50:07 01/01/20 24 01/02/2024 URINE CULTU RE urine culture colon ies/m L Not Available [address] [place], [address] 01/02/2024 07:50:07 01/01/20 24 01/03/2024 URINE CULTU RE urine culture Not Available [facility] [place] [address] [facility] [place], [address] 01/03/2024 08:13:04 01/01/20 24 01/03/2024 URINE CULTU RE urine culture colon ies/m L Not Available [address] [place], [address] 01/03/2024 08:13:04 12/30/19 24 12/30/2023 XR, knee, 3 view No observ ation record ed. Not Available 01/02/2024 11:33:25 12/30/19 24 12/30/2023 XR, tibia + fibul a, 2 view Patien t Name: Silvia De La Cruz Unit #: [id number] Loc: DI Orderi [facility] er: Delfina Mojica Accoun t #: [id number] Status : REG CLI Primar y Care Provid er: Delfina Mojica Date of Exam: 02/14 Sex: F Admiss ion Date: : 1959 Age: 63 Exam(s ) XR KNEE RT 3V AP,LAT ,MAYRA XR TIB/FI B RT EXAM: XR TIB/FI B RT and XR knee RT 3 V CLINIC AL HISTOR Y: M79.60 4 pain in rt leg, fell, twiste d rt knee/l eg. TECHNI QUE: 2D digita l imagin g was perfor med of the right knee, tibia and fibula . Five images were obtain ed. AP, AP tunnel and latera l views were obtain ed. COMPAR WAYNE: CR XR TIB/FI B RT from 2022 CR XR KNEE RT 3V AP,LAT ,MAYRA from 2023 FINDIN GS: BONES: No acute fractu re is presen t. There is an intram edulla ry conchita again seen in the tibia. Old healed tibial and fibula r fractu res are noted. No bony destru ctive lesion is seen. The knee is well mainta ined. The articu lar surfac es are unrema rkable . There is a small joint effusi on. There is a small enthes ophyte at the superi or patell a. SOFT TISSUE : Normal . IMPRES IRVIN: No acute fractu re or disloc ation in the right knee, tibia or fibula . DATA REPOSI TORY: RADIAT ION DOSE DELIVE RED: Ordere d By: Delfina Mojica CC: ------ ------ ------ ------ ------ ------ ------ ------ ------ ------ ------ ------ - Dictat ed By: Anthony Rosas M.D. [id number] Transc ribed By: Anthony Rosas 154 This is privil eged, confid ential inform ation intend ed only for the provid er named. Any use or distri bution by any person other than this provid er is strict ly prohib ited. If you receiv e this report in error, please notify us immedi jeremíasly at and return the origin al report to us at the addres s above. Thank- you. [email or web address] [facility] (Radiology) [address], [place], [address], 01/13/2024 11:19:10 12/30/19 24 12/30/2023 XR, knee Patien t Name: iSlvia De La Cruz Unit #: [id number] Loc: DI Orderi ng Provid er: Delfina Mojica Accoun t #: [id number] Status : REG CLI Primar y Care Provid er: Delfina Mojica Date of Exam: 02/14 Sex: F Admiss ion Date: : 1959 Age: 63 Exam(s ) XR KNEE RT 3V AP,LAT ,MAYRA XR TIB/FI B RT EXAM: XR TIB/FI B RT and XR knee RT 3 V CLINIC AL HISTOR Y: M79.60 4 pain in rt leg, fell, twiste d rt knee/l eg. TECHNI QUE: 2D digita l imagin g was perfor med of the right knee, tibia and fibula . Five images were obtain ed. AP, AP tunnel and latera l views were obtain ed. COMPAR WAYNE: CR XR TIB/FI B RT from 2022 CR XR KNEE RT 3V AP,LAT ,MAYRA from 2023 FINDIN GS: BONES: No acute fractu re is presen t. There is an intram edulla ry conchita again seen in the tibia. Old healed tibial and fibula r fractu res are noted. No bony destru ctive lesion is seen. The knee is well mainta ined. The articu lar surfac es are unrema rkable . There is a small joint effusi on. There is a small enthes ophyte at the superi or patell a. SOFT TISSUE : Normal . IMPRES IRVIN: No acute fractu re or disloc ation in the right knee, tibia or fibula . DATA REPOSI TORY: RADIAT ION DOSE DELIVE RED: Ordere d By: Delfina Mojica CC: ------ ------ ------ ------ ------ ------ ------ ------ ------ ------ ------ ------ - Dictat ed By: Anthony Rosas M.D. 1545 1545 Transc ribed By: Anthony Rosas 1545 This is privil eged, confid ential inform ation intend ed only for the provid er named. Any use or distri bution by any person other than this [facility] is strict ly prohib ited. If you receiv e this report in error, please notify us immedi ately at [phone] and return the origin al report to us at the addres s above. Thank- you. [email or web address] [facility] (Radiology) [address], [place], [address], 01/13/2024 11:19:43 12/30/19 24 12/30/2023 XR, knee, 3 view No observ ation record ed. [email or web address] [facility] (Radiology) [address] [place], [address], 01/02/2024 11:33:10 12/30/19 24 12/30/2023 XR, knee Patien t Name: Silvia De La Cruz Unit #: [id number] Loc: DI Orderi ng Provid er: Delfina Mojica Accoun t #: [id number] Status : REG CLI Primar y Care Provid er: Delfina Mojica Date of Exam: 02/14 Sex: F Admiss ion Date: : 1959 Age: 63 Exam(s ) XR KNEE LT 3V AP,LAT ,MAYRA EXAM: XR KNEE LT 3V AP,LAT ,MAYRA CLINIC AL HISTOR Y: M25.56 2 pain in rt leg, fell, twiste d rt knee/l eg. TECHNI QUE: 2D digita l imagin g was perfor med of the left knee. Three images were obtain ed. AP, latera l and PA tunnel views were obtain ed. COMPAR WAYNE: No priors for compar wayne. FINDIN GS: BONES: No acute fractu re is presen t. No bony destru ctive lesion is seen. Enthes ophyte s are seen at the anteri or patell a. JOINTS : The knee is normal ly aligne d. No joint effusi on is seen. No loose body. SOFT TISSUE : Normal . IMPRES IRVIN: No acute fractu re or disloc ation. DATA REPOSI TORY: RADIAT ION DOSE DELIVE RED: Ordere d By: Delfina Mojica CC: ------ ------ ------ ------ ------ ------ ------ ------ ------ ------ ------ ------ - Dictat ed By: Anthony Rosas M.D. 1602 160 Transc ribed By: Anthony Rosas 160 This is privil eged, confid ential inform ation intend ed only for the provid er named. Any use or distri bution by any person other than this provid er is strict ly prohib ited. If you receiv e this report in error, please notify us immedi jeremíasly at and return the origin al report to us at the addres s above. Thank- you. [email or web address] [facility] (Radiology) [facility], [place], [address], 01/13/2024 11:19:58 01/02/20 24 12/30/2023 x-ray imagi ng repor t Patien t Name: Silvia De La Cruz Unit #: [id number] Loc: DI Orderi ng Provid er: Delfina Mojica Accoun t #: [id number] Status : REG CLI Primar y Care Provid er: Delfina Mojica Date of Exam: 02/14 Sex: F Admiss ion Date: : 1959 Age: 63 Exam(s ) XR KNEE RT 3V AP,LAT ,MAYRA XR TIB/FI B RT EXAM: XR TIB/FI B RT and XR knee RT 3 V CLINIC AL HISTOR Y: M79.60 4 pain in rt leg, fell, twiste d rt knee/l eg. TECHNI QUE: 2D digita l imagin g was perfor med of the right knee, tibia and fibula . Five images were obtain ed. AP, AP tunnel and latera l views were obtain ed. COMPAR WAYNE: CR XR TIB/FI B RT from 2022 CR XR KNEE RT 3V AP,LAT ,MAYRA from 2023 FINDIN GS: BONES: No acute fractu re is presen t. There is an intram edulla ry conchita again seen in the tibia. Old healed tibial and fibula r fractu res are noted. No bony destru ctive lesion is seen. The knee is well mainta ined. The articu lar surfac es are unrema rkable . There is a small joint effusi on. There is a small enthes ophyte at the superi or patell a. SOFT TISSUE : Normal . IMPRES IRVIN: No acute fractu re or disloc ation in the right knee, tibia or fibula . DATA REPOSI TORY: RADIAT ION DOSE DELIVE RED: Ordere d By: Delfina Mojica CC: ------ ------ ------ ------ ------ ------ ------ ------ ------ ------ ------ ------ - Dictat ed By: Anthony Rosas M.D. 1545 1545 Transc ribed By: Anthony Rosas 1545 This is privil eged, confid ential inform ation intend ed only for the provid er named. Any use or distri bution by any person other than this provid er is strict ly prohib ited. If you receiv e this report in error, please notify us immedi ately at and return the origin al report to us at the addres s above. Thank- you. [facility] [address], [place], [address] 01/02/2024 09:08:56 01/02/20 24 12/30/2023 x-ray imagi ng repor t Ming t Name: Silvia De La Cruz Unit #: [id number] Loc: DI Orderi ng Provid er: Delfina Mojica Accoun t #: [id number] Status : REG CLI Primar y Care Provid er: Delfina Mojica Date of Exam: 02/14 Sex: F Admiss ion Date: : 1959 Age: 63 Exam(s ) XR KNEE LT 3V AP,LAT ,MAYRA EXAM: XR KNEE LT 3V AP,LAT ,MAYRA CLINIC AL HISTOR Y: M25.56 2 pain in rt leg, fell, twiste d rt knee/l eg. TECHNI QUE: 2D digita l imagin g was perfor med of the left knee. Three images were obtain ed. AP, latera l and PA tunnel views were obtain ed. COMPAR WAYNE: No priors for compar wayne. FINDIN GS: BONES: No acute fractu re is presen t. No bony destru ctive lesion is seen. Enthes ophyte s are seen at the anteri or patell a. JOINTS : The knee is normal ly aligne d. No joint effusi on is seen. No loose body. SOFT TISSUE : Normal . IMPRES IRVIN: No acute fractu re or disloc ation. DATA REPOSI TORY: RADIAT ION DOSE DELIVE RED: Ordere d By: Delfina Mojica CC: ------ ------ ------ ------ ------ ------ ------ ------ ------ ------ ------ ------ - Dictat ed By: Anthony Rosas M.D. 1602 1602 Transc ribed By: Anthony Rosas 1602 This is privil eged, confid ential inform ation intend ed only for the provid er named. Any use or distri bution by any person other than this provid er is strict ly prohib ited. If you receiv e this report in error, please notify us immedi ately at and return the origin al report to us at the addres s above. Thank- you. [facility] [address], [place], [address] 01/02/2024 09:08:57 01/02/20 24 12/30/2023 x-ray imagi ng repor t Patien t Name: Silvia De La Cruz Unit #: [id number] Loc: DI Orderi ng Provid er: Delfina Mojica Accoun t #: [id number] Status : REG CLI Primar y Care Provid er: Delfina Mojica Date of Exam: 02/14 Sex: F Admiss ion Date: : 1959 Age: 63 Exam(s ) XR KNEE RT 3V AP,LAT ,MAYRA XR TIB/FI B RT EXAM: XR TIB/FI B RT and XR knee RT 3 V CLINIC AL HISTOR Y: M79.60 4 pain in rt leg, fell, twiste d rt knee/l eg. TECHNI QUE: 2D digita l imagin g was perfor med of the right knee, tibia and fibula . Five images were obtain ed. AP, AP tunnel and latera l views were obtain ed. COMPAR WAYNE: CR XR TIB/FI B RT from 2022 CR XR KNEE RT 3V AP,LAT ,MAYRA from 2023 FINDIN GS: BONES: No acute fractu re is presen t. There is an intram edulla ry conchita again seen in the tibia. Old healed tibial and fibula r fractu res are noted. No bony destru ctive lesion is seen. The knee is well mainta ined. The articu lar surfac es are unrema rkable . There is a small joint effusi on. There is a small enthes ophyte at the superi or patell a. SOFT TISSUE : Normal . IMPRES IRVIN: No acute fractu re or disloc ation in the right knee, tibia or fibula . DATA REPOSI TORY: RADIAT ION DOSE DELIVE RED: Ordere d By: Delfina Mojica CC: ------ ------ ------ ------ ------ ------ ------ ------ ------ ------ ------ ------ - Dictat ed By: Anthony Rosas M.D. 1545 1545 Transc ribed By: Anthony Rosas 1545 This is privil eged, confid ential inform ation intend ed only for the provid er named. Any use or distri bution by any person other than this [facility] is strict ly prohib ited. If you receiv e this report in error, please notify us immedi ately at [phone] and return the origin al report to us at the addres s above. Thank- you. [facility] [address], [facility] [address] 01/02/2024 09:08:57 Result Notes None recorded. Problems Name Status Onset Date Resolution Date Notes Provider Name and Address Organization Details Recorded Time Anxiety disorder Active 2021 Problem Code: F41.9; Problem Code Type: ICD-10; [address], [facility] [address] , [facility] 3 10:18:48 Arthrodesis Active 2021 Problem Code: Z98.1; Problem Code Type: ICD-10; [address], [facility] [address] [place] [address] 3 10:18:48 Asthma Active 2021 Problem Code: J45.998; Problem Code Type: ICD-10; [address], [facility] [id number] [place] [address] 3 10:18:48 Atherosclerosis of coronary artery without angina pectoris Active 2021 Problem Code: I25.10; Problem Code Type: ICD-10; [address], [facility] [id number] [place] [address] 3 10:18:48 Essential hypertension Active 2021 Problem Code: I10; Problem Code Type: ICD-10; [address], [facility] [address] [place] [address] 3 10:18:48 Localized edema Active 2021 Problem Code: R60.0; Problem Code Type: ICD-10; [address], [facility] [address] [place] [address] 3 10:18:48 Bipolar disorder Active 2021 Problem Code: F31.9; Problem Code Type: ICD-10; [address], [place], [address] , [facility] 3 10:18:48 Borderline personality disorder Active 2021 Problem Code: F60.3; Problem Code Type: ICD-10; [address], [place], [address] , [facility] 3 10:18:48 Bulimia nervosa Active 2021 Problem Code: F50.2; Problem Code Type: ICD-10; [address], [place], [address] , [facility] 3 10:18:49 Cataract Active 2021 Problem Code: H26.9; Problem Code Type: ICD-10; [address], [place], [address] , [facility] 3 10:18:48 Spinal stenosis in cervical region Active 2021 Problem Code: M48.02; Problem Code Type: ICD-10; [address], [place], [address] , [facility] 3 10:18:49 Neck pain Active 2021 Problem Code: M54.2; Problem Code Type: ICD-10; [address], [place], [address] , [facility] 3 10:18:49 Chronic obstructive pulmonary disease Active 2021 Problem Code: J44.9; Problem Code Type: ICD-10; [address], [place], [address] , [facility] 3 10:18:48 Chronic pain Active 2021 Problem Code: G89.29; Problem Code Type: ICD-10; [address], [address] 3 10:18:49 Arthralgia of the ankle and/or foot Active 2021 Problem Code: M25.579; Problem Code Type: ICD-10; [address], [address] 3 10:18:48 Major depression, single episode Active 2021 Problem Code: F32.9; Problem Code Type: ICD-10; [address], [address] 3 10:18:48 Dizziness and giddiness Active 2021 Problem Code: R42; Problem Code Type: ICD-10; [address], [address] 3 10:18:48 Asthenia Active 2021 Problem Code: R53.1; Problem Code Type: ICD-10; [address], [address] 3 10:18:48 Gastroesophageal reflux disease without esophagitis Active 2021 Problem Code: K21.9; Problem Code Type: ICD-10; [address], [address] 3 10:18:48 Headache Active 2021 Problem Code: R51.9; Problem Code Type: ICD-10; [address], [address] 3 10:18:48 Hyperlipidemia Active 2021 Problem Code: E78.5; Problem Code Type: ICD-10; [address], [address] 3 10:18:48 Hypothyroidism Active 2021 Problem Code: E03.9; Problem Code Type: ICD-10; [address], [address] 3 10:18:48 Low back pain Active 2021 Problem Code: M54.50; Problem Code Type: ICD-10; [address], [address] 3 10:18:48 Obesity Active 2021 Problem Code: E66.9; Problem Code Type: ICD-10; [address], [address] 3 10:18:48 Obstructive sleep apnea syndrome Active 2021 Problem Code: G47.33; Problem Code Type: ICD-10; [address], [address] 3 10:18:49 Osteoarthritis of multiple joints Active 2021 Problem Code: M15.9; Problem Code Type: ICD-10; [address], [address] 3 10:18:48 Senile osteoporosis Active 2021 Problem Code: M81.0; Problem Code Type: ICD-10; [address], [address] 3 10:18:48 Posttraumatic stress disorder Active 2021 Problem Code: F43.10; Problem Code Type: ICD-10; [address], [address] 3 10:18:48 Seizure Active 2021 Problem Code: R56.9; Problem Code Type: ICD-10; [address], [address] 3 10:18:49 Nicotine dependence Active 2021 Problem Code: Z87.891; Problem Code Type: ICD-10; [address], [address] 3 10:18:48 History of risk factor for suicide Active 2021 Problem Code: Z91.51; Problem Code Type: ICD-10; [address], [address] 3 10:18:48 Vitamin D deficiency Active 2021 Problem Code: E55.9; Problem Code Type: ICD-10; [address], [place] [address] , [facility] 3 10:18:48 Vitamin B deficiency Active 2021 Problem Code: E53.8; Problem Code Type: ICD-10; [address], [facility] [address] [place] [address] 3 10:18:48 History of bariatric surgical procedure Active 2021 Problem Code: Z98.84; Problem Code Type: ICD-10; [address], [address] 3 10:18:48 Prediabetes Active 2021 Problem Code: R73.03; Problem Code Type: ICD-10; [address], [address] 3 10:18:49 Hemorrhoids Active 2021 Problem Code: K64.9; Problem Code Type: ICD-10; [address], [address] 3 10:18:49 Constipation Active 2021 Problem Code: K59.00; Problem Code Type: ICD-10; [address], [address] 3 10:18:48 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 Active 2021 Problem Code: H54.3; Problem Code Type: ICD-10; [address], [address] 3 10:18:48 Urinary incontinence Active 2021 Problem Code: R32; Problem Code Type: ICD-10; [address], [address] 3 10:18:48 History of malignant neoplasm of ovary Active 2021 Problem Code: Z85.43; Problem Code Type: ICD-Nany; [address], [address] 3 10:18:48 Screening mammography Active 2022 Problem Code: Z12.31; Problem Code Type: ICD-10; [address], [place], [address] , [facility] 3 10:18:48 Solitary nodule of lung Active 2022 Problem Code: R91.1; Problem Code Type: ICD-10; [address], [place], [address] , [facility] 3 10:18:48 Anemia Active 2022 Problem Code: D64.9; Problem Code Type: ICD-10; [address], [place], [address] , [facility] 3 10:18:48 Disorder of hematopoietic structure Active 2022 Problem Code: D75.89; Problem Code Type: ICD-10; [address], [facility] [address] , [facility] 3 10:18:48 Pain in lower limb Completed 202202/03/2023 Problem Code: M79.606; Problem Code Type: ICD-10; Not Available [facility] 3 05:27:04 Urinary tract infectious disease Completed 202106/18/2022 Problem Code: N39.0; Problem Code Type: ICD-10; Not Available [facility] 3 05:27:05 Tobacco dependence caused by cigarettes Completed 202104/20/2023 Problem Code: F17.210; Problem Code Type: ICD-10; Not Available [facility] 3 05:27:05 History of nutritional disorder Completed 202109/09/2022 Not Available [facility] 3 05:27:05 Tobacco dependence caused by cigarettes Completed 202208/23/2022 Problem Code: F17.210; Problem Code Type: ICD-10; Not Available [facility] 3 05:27:05 Nicotine dependence Completed 202208/23/2022 Problem Code: F17.200; Problem Code Type: ICD-10; DAMARI CHAPMAN APRN [address], [place], [address] , [facility] 3 10:18:48 Edema of lower leg Active 2022 DAMARI CHAPMAN APRN [address], [place], [address] , [facility] 3 14:13:38 Restless legs Active 2022 DAMARI CHAPMAN APRN [address], [place], [address] , [facility] 3 11:31:07 Active immunization Active 2022 Problem Code: Z23; Problem Code Type: ICD-10; Not Available [facility] 4 05:37:46 Problem Notes None recorded. Procedures Surgical History None recorded. Imaging Results Imaging Date Name Status [facility] by [facility] Details LastModified Time 12/30/2023 XR, knee, 3 view completed Information not available 01/02/2024 11:33:25 12/30/2023 XR, tibia + fibula, [address] [facility] (Radiology) [address] [place] [address] [place], [address], 01/13/2024 11:19:10 12/30/2023 XR, knee completed [email or web address] [facility] (Radiology) [address] [place] [address] [place], [address], 01/13/2024 11:19:43 12/30/2023 XR, knee, [email or web address] [facility] (Radiology) [address] [place] [address] [place], [address], 01/02/2024 11:33:10 12/30/2023 XR, knee completed [email or web address] [facility] (Radiology) [address] [place] [address] [place], [address], 01/13/2024 11:19:58 12/30/2023 x-ray imaging report completed [address] [place], [address] 01/02/2024 09:08:56 12/30/2023 x-ray imaging report completed [address] [place] [place], [address] 01/02/2024 09:08:57 12/30/2023 x-ray imaging report completed [address] [place] [place], [address] 01/02/2024 09:08:57 Procedure Notes None recorded. Medical Equipment None Reported. Allergies Allergen ID Allergen Name Allergen Category Reaction Reaction Severity Criticality Documentation Date Start Date Code Code System Note Provider Name and Address Organization Details Recorded Time 54339 prednison e medicatio n other moderate Not available 06/03/20232010 8640 RxNorm Aggit ation Aller gyRea ction : 'Aggi tatio n'; Not Available [facility] 3 16:21:47 52200 morphine sulfate medicatio n dyspnea Not available Not available 06/03/20232015 83966 RxNorm SOB Aller gyRea ction : 'SOB' ; Not Available [facility] 3 16:21:47 Medications Name Sig Start Date Stop Date Status Note LastModified by Organization Details LastModified Time fluoxetine 40 mg capsule 1 tablet daily active Not Available Not Available No t Available atorvastat in 40 mg tablet 1 TAB BY MOUTH EVERY DAY active Not Available Not Available No t Available lamotrigin e 200 mg tablet Take 1 tablet by mouth at bedtime 02/02 completed Not Available Not Available Not Available divalproex 250 mg tablet,del ayed release 1 capsule sprinkle over yogurt in the morning active Not Available Not Available No t Available Vitamin C 500 mg tablet Take 2 tablets every day by oral route. 2023 active Not Available Not Available Not Avai lable trazodone 50 mg tablet Take 1 tablet by mouth at bedtime active Not Available Not Available No t Available ibuprofen 800 mg tablet Take 1 tablet by mouth every eight hours as needed for pain Hold aspirin if using 07/08 completed Not Available Not Available Not Available tizanidine 4 mg tablet Take 1 tablet by mouth at bedtime active Not Available Not Available No t Available prazosin 1 mg capsule 4 capsuls at bedtime active Not Available Not Available No t Available senna 8.6 mg tablet TAKE 2 TABLET BY MOUTH AT NOON 2023 active Not Available Not Available Not Avai lable Nicorette 2 mg gum chew 1 piece every 2-4 hours for 3 weeks, then 1 piece every 4-8 hours for 3 weeks; then stop 12/30 completed Not Available Not Available Not Available isosorbide mononitrat e ER 30 mg tablet,ext ended release 24 hr TAKE 1 TABLET BY MOUTH ONCE A DAY active Not Available Not Available No t Available clonazepam 0.5 mg tablet TAKE 1 TABLET BY ORAL ROUTE PER AT BEDTIME NEEDED ONLY FOR BREAKTHR OUGH ANXIETY. active Not Available Not Available No t Available fluoxetine 10 mg tablet Take 1 tablet by mouth once a day 06/14 completed Not Available Not Available Not Available cyanocobal saldana (vit B-12) 1,000 mcg tablet Take 1 tablet by mouth at Noon active Not Available Not Available No t Available omeprazole 40 mg capsule,de layed release Take 1 capsule every day by oral route. active Not Available Not Available No t Available aspirin 81 mg tablet,del ayed release 1 TABLET BY MOUTH ONCE A DAY 2022 active Not Available Not Available Not Avai lable prazosin 5 mg capsule active Not Available Not Available N ot Available Nicoderm CQ 7 mg/24 hr daily transderma l patch 1 patch to skin once a day for six weeks 03/17 completed Not Available Not Available Not Available famotidine 20 mg tablet Take 1 tablet by mouth once a day 07/15 completed Not Available Not Available Not Available magnesium oxide 400 mg (241.3 mg magnesium) tablet 1 TAB BY MOUTH AT BEDTIME 07/14 completed Not Available Not Available Not Available Vitamin C 1,000 mg tablet Take 1 tablet by mouth once a day 10/19 completed Not Available Not Available Not Available miconazole nitrate (bulk) powder apply 2 times daily 08/04 completed Not Available Not Available Not Available Nicoderm CQ 14 mg/24 hr daily transderma l patch Apply 1 patch to skin once a day alternat ing arms for six weeks then switch to Nicoderm CQ 7mg. 03/17 completed Not Available Not Available Not Available levothyrox ine 50 mcg tablet TAKE 1 TABLET BY MOUTH ONCE A DAY active Not Available Not Available No t Available ferrous sulfate 325 mg (65 mg iron) tablet Take 1 tablet by mouth three times a week 06/09 completed Not Available Not Available Not Available divalproex 125 mg tablet,del ayed release Take by mouth as directed as directed 1 tablet every morning and 2 tablets in the evening. 07/08 completed Not Available Not Available Not Available fluoxetine 10 mg capsule 06/14 completed Not Available Not Available Not Available Advair Diskus 500 mcg-50 mcg/dose powder for inhalation Inhale 1 puff as directed twice a day 2023 active Not Available Not Available Not Avai lable nitroglyce rin 0.[address] 1 under the tongue every 5 minutes for chest pain, ma repeat x 3 active Not Available Not Available No t Available docusate sodium 100 mg capsule TAKE 1 CAPSULE BY MOUTH TWICE A DAY 2023 active Not Available Not Available Not Avai lable omeprazole 20 mg capsule,de layed release Take 1 capsule by mouth once a day as needed 10/19 completed Not Available Not Available Not Available polyethyle ne glycol 3350 17 gram/dose oral powder 1/2 CAP BY MOUTH TWICE A DAY 2023 active Not Available Not Available Not Avai lable albuterol sulfate HFA 90 mcg/actuat ion aerosol inhaler Inhale 1-2 puff using inhaler every six hours as needed active Not Available Not Available No t Available Ibuprofen IB 200 mg tablet Take 2 tablet by mouth once a day 05/12 completed Not Available Not Available Not Available fluoxetine 20 mg capsule Take 1 capsule by mouth once a day 08/04 completed Not Available Not Available Not Available divalproex 125 mg capsule,de layed release sprinkle 1 capsule sprinkle d over yogurt at bedtime with a 250mg. totallyi ng 375mg active Not Available Not Available No t Available lamotrigin e 100 mg tablet Take 1 tablet every day by oral route. active Not Available Not Available No t Available prazosin 2 mg capsule Take 3 capsule by mouth at bedtime 06/09 completed Not Available Not Available Not Available Acidophilu s capsule Take 2 capsule by mouth twice a day 06/09 completed Not Available Not Available Not Available Tylenol Extra Strength 500 mg tablet Take 1 tablet 3 times a day by oral route with meals. 2022 active Not Available Not Available Not Avai lable oxycodone 5 mg tablet TAKE ONE TABLET BY MOUTH EVERY 4 HOURS NEEDED FOR PAIN (SCALE 4-10) 07/08 completed Not Available Not Available Not Available calcium citrate 200 mg (950 mg) tablet TAKE 1 TABLET BY MOUTH TWICE A DAY 2023 active Not Available Not Available Not Avai lable divalproex ER 250 mg tablet,ext ended release 24 hr Take 1 tablet by mouth at bedtime 02/21 completed Not Available Not Available Not Available cholecalci ferol (vitamin D3) 25 mcg (1,000 unit) tablet Take 3 tablet by mouth at bedtime 06/09 completed Not Available Not Available Not Available diclofenac 1 % topical gel Apply 2-4 gram to affected area once a day 07/14 completed Not Available Not Available Not Available cholecalci ferol (vitamin D3) 50 mcg (2,000 unit) tablet Take 1 tablet by mouth at noon 2022 active Not Available Not Available Not Avai lable Probiotic 10 billion cell capsule Take 1 capsule by mouth once a day Dairy Free 08/04 completed Not Available Not Available Not Available Affirm Underwear Use 1 each as directed six times a day adult pull ups briefs 3x active Not Available Not Available No t Available boswellia frank extract (bulk) 65 % powder Take 1 capsule TID active Mental health Not Available Not Available Not Available Preparatio n H 0.25 %-14 %-74.9 % ointment Apply 1 a small amount to affected area four times a day as needed around rectum- Bedside may self administ er 2022 active Not Available Not Available Not Avai lable Spiriva Respimat 2.5 mcg/actuat ion solution for inhalation Inhale 2 puff as directed every night 06/09 completed Not Available Not Available Not Available Incruse Ellipta 62.5 mcg/actuat ion powder for inhalation Inhale 1 puff every day by inhalati on route. active Not Available Not Available No t Available fluticason e furoate 200 mcg-vilant aly 25 mcg/dose inhalation powder Inhale 1 puff every day by inhalati on route. active Not Available Not Available No t Available Wixela Inhub 100 mcg-50 mcg/dose powder for inhalation INHALE 1 PUFF BY MOUTH TWICE A DAY active Not Available Not Available No t Available lidocaine HCl 4 % topical patch Apply 1 patch to skin as directed 12 hours on 12 hours off as needed active Not Available Not Available No t Available Lagevrio 200 mg capsule (EUA) TAKE 4 CAPSULES BY MOUTH EVERY 12 HOURS FOR 5 DAYS active Not Available Not Available No t Available Vitals Date Recorded Body height Body temperature Oxygen saturation Oxygen saturation in Arterial blood by Pulse oximetry Heart rate Respiratory rate Systolic blood pressure Diastolic blood pressure Provider Name and Address Organization Details Last Updated DateTime 3 157.48 cm 93.7 [degF] 97 % 97 % 50 /min 15 /min 150 mm[Hg] 67 mm[Hg] DAMARI CHAPMAN, SAM [address], [place], [address] [place] [address] 3 13:11:35 Date Recorded Body height Body mass index (BMI) Body weight Body temperature Oxygen saturation Oxygen saturation in Arterial blood by Pulse oximetry Heart rate Respiratory rate Systolic blood pressure Diastolic blood pressure Provider Name and Address Organization Details Last Updated DateTime 3 157.48 cm 37.3 kg/m2 15981.8 4 g 97.2 [degF] 97 % 97 % 51 /min 14 /min 135 mm[Hg] 69 mm[Hg] DAMARI CHAPMAN, SAM [address], [place], [address] [place] [address] 3 10:43:49 Date Recorded Body height Body mass index (BMI) Body weight Body temperature Oxygen saturation Oxygen saturation in Arterial blood by Pulse oximetry Heart rate Respiratory rate Systolic blood pressure Diastolic blood pressure Provider Name and Address Organization Details Last Updated DateTime 4 157.48 cm 34.5 kg/m2 95223.4 7 g 97 [degF] 96 % 96 % 67 /min 15 /min 130 mm[Hg] 67 mm[Hg] DAMARI CHAPMAN APRN [address], [place], [address] [place] [address] 08:44:52 Social History Question Answer Notes LastModified by Organizat ion Details LastModified Time Tobacco Smoking Status Current Every Day Smoker DAMARI CHAPMAN APRN [address], [place], [address], [facility] 10/20/2023 08:49:41 What Was The Date Of Your Most Recent Tobacco Screening? 10/20/2023 Information not available 10/20/2023 What Is Your Current Pack Years? 30ormorepack years Information not available 10/20/2023 At What Age Did You Start Smoking Tobacco? 11 Information not available 10/20/2023 How Much Tobacco Do You Smoke? 2 PPW Information not available 10/20/2023 Has Tobacco Cessation Counseling Been Provided? Yes Information not available 10/20/2023 On What Date Was Tobacco Cessation Counseling Provided? 10/20/2023 Information not available 10/20/2023 How Many Years Have You Smoked Tobacco? 50 Information not available 10/20/2023 Do You Or Have You Ever Used Any Other Forms Of Tobacco Or Nicotine? No Information not available 10/20/2023 Sex: Female Functional Status None recorded. Mental Status None recorded. Family History Relationship Description Onset Age of this Age Resolved Age Notes Notes:*Problem: Mother- anxi ety, depression, CHF, HTN, lung CA, multiple sclerosis Father- depression, CAD, HTN, obesity, Diabetes Siblings- sister, cervical cancer Other: leukemia in uncle CAD: maternal grandmother, maternal grandfather, paternal grandmother Medical History No medical history recorded. Gynecological HistoryNo gynecological history recorded. Obstetrics History GPAL:G 0 P 0 0 0 0 Immunizations Vaccine Type Date Status Provider Name and Address Organization Details Recorded Time Tdap 03/28/2018 completed Not Available [facility] 04:40:27 zoster live 09/24/2019 completed Not Available [facility] 06/03/2023 04:40:27 zoster live 03/04/2022 completed Not Available [facility] 06/03/2023 04:40:27 Td(adult) unspecified formulation 01/22/2007 completed Not Available [facility] 06/03/2023 04:40:27 SARS-COV-2 (COVID-19) vaccine, UNSPECIFIED 09/25/2020 completed Not Available [facility] 06/03/2023 04:40:27 SARS-COV-2 (COVID-19) vaccine, UNSPECIFIED 10/26/2020 completed Not Available [facility] 06/03/2023 04:40:27 SARS-COV-2 (COVID-19) vaccine, UNSPECIFIED 05/13/2022 completed Not Available [facility] 06/03/2023 04:40:28 SARS-COV-2 (COVID-19) vaccine, UNSPECIFIED 06/10/2021 completed Not Available [facility] 06/03/2023 04:40:28 Pneumococcal conjugate PCV20, polysaccharide [id number] conjugate, adjuvant, PF 03/23/2022 completed Not Available [facility] 06/03/2023 04:40:28 pneumococcal polysaccharide PPV23 05/13/2008 completed Not Available [facility] 2022 04:40:29 pneumococcal polysaccharide PPV23 05/19/2017 completed Not Available [facility] 2022 04:40:29 influenza, unspecified formulation 09/24/2019 completed Not Available [facility] 06/03/2023 04:40:29 influenza, unspecified formulation 05/13/2022 completed Not Available [facility] 06/03/2023 04:40:30 influenza, unspecified formulation 05/19/2017 completed Not Available [facility] 06/03/2023 04:40:30 influenza, unspecified formulation 05/24/2016 completed Not Available [facility] 06/03/2023 04:40:30 influenza, unspecified formulation 2021 completed Not Available [facility] 06/03/2023 04:40:30 influenza, unspecified formulation 05/30/2015 completed Not Available [facility] 06/03/2023 04:40:30 influenza, unspecified formulation 06/27/2018 completed Not Available [facility] 06/03/2023 04:40:31 COVID-19, mRNA, LNP-S, PF, mike-sucrose, 30 mcg/0.3 mL 06/30/[address], [place], [address], [facility] 06/30/2023 13:41:28 Influenza, split virus, quadrivalent, PF 05/12/2023 completed Not Available [facility] 08/05/2023 05:33:03 Past Encounters Encounter ID Performer Location Encounter Start Date Encounter Closed Date Diagnosis/Indication Diagnosis SNOMED-CT Code [id number] DAMARI CHAPMAN [address] [address] 06/30/2023 09:47:30 06/30/2023 15:17:56 Active or passive immunization [id number] DAMARI CHAPMAN [address] [address] 07/14/2023 06:52:54 09/08/2023 05:37:42 Urinary incontinence 993361312 Constipation 32578546 Seizure 31303355 Obstructiv e sleep apnea syndrome 30382171 Obesity 507322675 Hypothyroidism 11406220 Headache 64545166 Gastroesop hageal reflux disease without esophagitis 525859019 Chronic pain 58612590 Atheroscle rosis of coronary artery without angina pectoris 048448114228114 Dizziness and giddiness 657885114 Asthma 191899038 Bipolar disorder 6418172 4 Edema of lower leg 48536 7004 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 Restless legs 76395096 [id number] DAMARI CHAPMAN APRN [address] [address] 10/20/2023 07:32:39 10/20/2023 13:47:57 Urinary incontinence 350873334 Constipation 54581758 Seizure 24477187 Obstructiv e sleep apnea syndrome 85246265 Obesity 947784933 Hypothyroidism 97078003 Headache 43068157 Gastroesop hageal reflux disease without esophagitis 442943918 Edema of lower leg 53962 7004 Dizziness and giddiness 828105405 Atheroscle rosis of coronary artery without angina pectoris 740550080554298 Asthma 632581253 Bipolar disorder 1476851 4 Chronic pain 03221166 Disorder o f hematopoietic structure 345882663 Restless legs 53254734 Tobacco de pendence caused by cigarettes [id number] 07 Health Concerns Section Related Observation LastModified by Organization Detai ls LastModified Time None Recorded Concern Status LastModified by Organization Details LastModified Time None Recorded Advance Directives Directive None Recorded Payers Encounter Date Sequence Insurance Name Policy Number Policy Brar Covered Member ID Brar Member ID Guarantor Name 06/30/2023 1 [place] [employer] Jeannie Carbino [id number] Jeannie Carbino 06/30/2023 2 [facility] (MEDICAID) Jeannie Carbino [id number] Jeannie Carbino 07/14/2023 1 [place] [facility] [employer] Jeannie Carbino [id number] Jeannie Carbino 07/14/2023 2 [facility] (MEDICAID) Jeannie Carbino [id number] Jeannie Carbino 10/20/2023 1 [place] [facility] [employer] Jeannie Carbino [id number] Jeannie Carbino 10/20/2023 2 [facility] (MEDICAID) Jeannie Carbino [id number] Jeannie Carbino Notes Date Note Type Note Provider Name and Address Organization Details Recorded Time 06/30/2023 text/html HPI Notes: Home visit for vaccination. Needs Cominarty vaccine. Denies fevers or chills. Has no concerns. DAMARI CHAPMAN, EMBLEM FUSER TENDER [address], [place], [address], [facility]. 06/30/2023 13:41:45 07/14/2023 text/html HPI Notes: Home visit for follow-up: - Urinary incont. Has depends PRN. - Constipation. Hemorrhoids. Takes senna, miralax ?? cap daily, colace, prep H. Uses prep H. Iron was stopped last visit. - Seizures. Takes lamotrigine - KARINA. Managed with side sleeping. - Obesity. hx of gastric bypass. Hx of DM. Prediabetes. B12 deficiency. Vitamin D deficiency. Osteoporosis. Takes vitamin D, calcium citrate, B12. Last visit iron was stopped to see if constipation improved/ lessened. She saw the gastric bypass specialist and was told they were worried about her kidney function and being gluten free - Hypothyroidism. Takes levothyroxine - Headache. Has APAP PRN. - GERD. Takes pepcid, has prilosec PRN. - Leg edema. Completed course of PT. Does not wear compression socks. - Dizziness. see ROS. - HLD. CAD. HTN. Takes ASA, isosorbide, prazosin, atorvastatin. - COPD. Asthma. Smoker. Takes spirva, advair, albuterol PRN. - Chronic pain. Cervicalgia. spinal stenosis cervical. Ankle pain, chronic. lumbago. Osteoarthrosis. Takes tizanidine, voltaren topically, lidocaine patch, APAP PRN, magnesium QHS - Bipolar. bulimia. borderline personality disorder. anxiety. depression. PTSD. hx of suicide attempt. Takes prozac, klonopin, lamotrigine, depakote, prazosin, trazodone through psychiatry. - Macrocytosis. 01/14 labs- retic, normal; SPEP abnormal, elevated alpha1 and gamma, but no monoclonal protein, copper normal; B12 and folate normal; haptoglobin normal. Saw hematology [facility], their note stated persistent macrocytosis since 1995, recommends no further work-up needed. DAMARI CHAPMAN, EMBLEM FUSER TENDER [address], [place], [address], [facility]. 07/14/2023 11:50:46 10/20/2023 text/html HPI Notes: Home visit for follow-up: - Urinary incont. Has depends PRN. - Constipation. Hemorrhoids. Takes senna, miralax 1/2 cap BID, colace, prep H. Uses prep H. - Seizures. Takes lamotrigine - KARINA. Managed with side sleeping. - Obesity. hx of gastric bypass. Hx of DM. Prediabetes. B12 deficiency. Vitamin D deficiency. Osteoporosis. Takes vitamin D, calcium citrate, B12. no longer on iron supplement. Takes MVI and supplements per recommendations of bariatric clinic. - Hypothyroidism. Takes levothyroxine - Headache. Has APAP PRN. - GERD. Takes pepcid, has prilosec PRN. - Leg edema. Completed course of PT. Does not wear compression socks. - Dizziness. see ROS. - HLD. CAD. HTN. Takes ASA, isosorbide, prazosin, atorvastatin. - COPD. Asthma. Smoker. Takes wixela, advair, albuterol PRN. Feels helpful regimen. Not needing emergency inahler. - Chronic pain. Cervicalgia. spinal stenosis cervical. Ankle pain, chronic. lumbago. Osteoarthrosis. Takes tizanidine, lidocaine patch, APAP PRN. Mag and diclofenac were stopped last visit per her desires. - Bipolar. bulimia. borderline personality disorder. anxiety. depression. PTSD. hx of suicide attempt. Takes prozac, klonopin, lamotrigine, depakote, prazosin, trazodone through psychiatry. - Macrocytosis. 01/14 labs- retic, normal; SPEP abnormal, elevated alpha1 and gamma, but no monoclonal protein, copper normal; B12 and folate normal; haptoglobin normal. Saw hematology [facility], their note stated persistent macrocytosis since 1995, recommends no further work-up needed. DAMARI CHAPMAN, EMBLEM FUSER TENDER [address], [place], [address], [place] [facility]. 10/20/2023 11:06:26 OBGyn Episode No OBEpisode recorded.
--- OUTSIDE RECORDS SUMMARY | 2024-02-22 00:46 | XMS_ITS | Encounter Summary ---
Author Organization [facility] Address [facility] [place] [address] Care Team Providers Care Puller Out Name Role Phone Hoang Castellanos APRN Primary Care Provider Encounter Details Date Type Department Care Team (Late st Contact Info) Description 04/09/2022 12:00 PM EDT Home Care Visit [facility] for Care [address] [place] [phone] Kimberly Austin, SENIOR ACCOUNTANT CPA LT CONCRETE PIPE PLANT SUPERVISOR HOME VISIT Social History Tobacco Use Types [...] Care Plan Visit Details Visit Type -LTC CONCRETE PIPE PLANT SUPERVISOR Home Vis it Discipline -Home Health Aide Problems Problem Description Start Date Status Goals Interve ntions A Required Screenings Disciplines: [facility] 03/25/2022 Active 1 goal linked to scheduled/documente d intervention 1 goal intervention scheduled/documente d in this visit Other Disciplines: [facility] 03/25/2022 Active 1 goal linked to scheduled/documente d intervention 1 goal intervention scheduled/documente d in this visit House Keeping Disciplines: [facility] 03/25/2022 Active 1 goal linked to scheduled/documente d intervention 9 goal interventions scheduled/documente d in this visit Personal Care Disciplines: [facility] 03/25/2022 Active 1 goal linked to [...] patient's environment as directed Scheduled with variance Patient refused DO LAUNDRY Description: Do Laundry Problem:House Keeping Goal:Aide to assist with clean-up of patient's environment as directed Scheduled with variance Equipment unavailable LOTION AND OR POWDER Description: Lotion and [...] refused documented in this encounter Care Teams Puller Out Relationship Specialty Start Date End Date Hoang Castellanos, ESTATE PLANNING PAR[employer] [address] [place] [address] PCP - General Family Medicine 03/12/20 documented as of this encounter
--- OUTSIDE RECORDS SUMMARY | 2024-02-22 00:46 | XMS_ITS | Encounter Summary ---
Author Organization [facility] Address [facility] [place] [address] Care Team Providers Care Operating Cost Clerk Name Role Phone Hoang Castellanos APRN Primary Care Provider Encounter Details Date Type Department Care Team (Late st Contact Info) Description 04/12/2022 1:00 PM EDT Home Care Visit [facility] for Care [address] [place] [phone] Kimberly Austin, COPPER MINER LT DISSOLVER OPERATOR HOME VISIT Social History Tobacco Use [...] Care Plan Visit Details Visit Type -LTC DISSOLVER OPERATOR Home Vis it Discipline -Home Health Aide Problems Problem Description Start Date Status Goals Interve ntions A Required Screenings Disciplines: [facility] 03/25/2022 Active 1 goal linked to scheduled/documente d intervention 1 goal intervention scheduled/documente d in this visit Other Disciplines: [facility] 03/25/2022 Active 1 goal linked to scheduled/documente d intervention 1 goal intervention scheduled/documente d in this visit House Keeping Disciplines: [facility] 03/25/2022 Active 1 goal linked to scheduled/documente d intervention 9 goal interventions scheduled/documente d in this visit Personal Care Disciplines: [facility] 03/25/2022 Active 1 goal linked to [...] refused documented in this encounter Care Teams Operating Cost Clerk Relationship Specialty Start Date End Date Hoang Castellanos, MANA[address] [place] [address] PCP - General Family Medicine 03/12/20 documented as of this encounter
--- OUTSIDE RECORDS SUMMARY | 2024-02-22 00:46 | XMS_ITS | Encounter Summary ---
Author Organization [facility] Address [facility] [place] [address] Care Team Providers Care Negative Restorer Name Role Phone Hoang Castellanos APRN Primary Care Provider [phone] Encounter Details Date Type Department Care Team (Late st Contact Info) Description 04/21/2022 11:00 AM EDT Home Care Visit [facility] for Care [address] [place] [phone] Kimbelry Austin, CAN RUNNER LT SHIP PURSER HOME VISIT Social History Tobacco Use Types [...] Care Plan Visit Details Visit Type -LTC SHIP PURSER Home Vis it Discipline -Home Health Aide Problems Problem Description Start Date Status Goals Interve ntions A Required Screenings Disciplines: [facility] 03/25/2022 Active 1 goal linked to scheduled/documente d intervention 1 goal intervention scheduled/documente d in this visit Other Disciplines: [facility] 03/25/2022 Active 1 goal linked to scheduled/documente d intervention 1 goal intervention scheduled/documente d in this visit House Keeping Disciplines: [facility] 03/25/2022 Active 1 goal linked to scheduled/documente d intervention 9 goal interventions scheduled/documente d in this visit Personal Care Disciplines: [facility] 03/25/2022 Active 1 goal linked to [...] clean-up of patient's environment as directed Completed [facility] KITCHEN AREA Description: [facility] kitchen area Problem:House Keeping Goal:Aide to assist [...] refused documented in this encounter Care Teams Negative Restorer Relationship Specialty Start Date End Date Haong Castellanos, CARE ANALYST [address] [place] [address] PCP - General Family Medicine 03/12/20 documented as of this encounter
--- OUTSIDE RECORDS SUMMARY | 2024-02-22 00:46 | XMS_ITS | Encounter Summary ---
Author Organization [place] [address] Care Team Providers Care Tenon Machine Operator Name Role Phone Hoang Castellanos APRN Primary Care Provider [phone] Reason for Visit * Reason Comments Medication Refill Encounter Details Date Type Department Care Team (Late st Contact Info) Description 03/18/2022 Refill Primary Care at [facility] [address] [facility] [place] [address] Hoang Castellanos APRN [address] [place] [address] Cervicalgia; Asthma with acute exacerbation, unspecified asthma severity, unspecified whether persistent Social History Tobacco Use Types Packs/Day Years [...] food, housing, medical care, and heating? Hard 12/01/2021 Exercise Vital Sign Answer Date Recorde d On average, how many days pe r week do you engage in moderate to strenuous exercise (like a brisk walk)? 3 days 12/01/2021 On average, how many minutes do you engage in exercise at this level? 30 min 12/01/2021 Hunger Vital Sign Answer Date Recorded Within the past 12 months, y ou worried that your food would run out before you got the money to buy more. Often true Within the past 12 months, t he food you bought just didn't last and you didn't have money to get more. Sometimes true 04/2022 PRAPARE - Transportation Answer Date Re corded In the past 12 months, has l ack of transportation kept you from medical appointments or from getting medications? Yes 11/22 In the past 12 months, has l ack of transportation kept you from meetings, work, or from getting things needed for daily living? Yes 12/01/2021 Housing Stability Vital Sign Answer Aaron e Recorded In the last 12 months, was t here a time when you were not able to pay the mortgage or rent on time? No 12/01/2021 In the last 12 months, how many places have you lived? 1 12/01/2021 In the last 12 months, was t here a time when you did not have a steady place to sleep or slept in a penitentiary (including now)? No 12/01/2021 Sex and Gender Information Value Date Recorded Sex Assigned at Not on file Gender Identity Not on file Sexual Orientation Not on file documented as of this encounter Miscellaneous Notes * Telephone Encounter - Jeannie Luciano RN - 03/19/2022 4:05 PM EDT Requested Prescriptions Pending Prescriptions Disp Refills ??? nicotine (Nicoderm CQ) 14 mg/24 hr Patch 24 hr [Pharmacy Med Name: Nicotine 14 MG/24HR Patch 24hr] 11 Sig: APPLY ONE (1) PATCH EVERY DAY ??? Spiriva Respimat 2.5 mcg/actuation Mist [Pharmacy Med Name: Spiriva Respimat 2.5 MCG/ACT Aerosol, solution] 11 Sig: INHALE TWO (2) PUFFS INTO THE LUNGS NIGHTLY Last Prescription Fill Date: Nicoderm 12/01/2119/10 Spiriva 03/23/2107/27 Last Related Office Visit: 5/10/22 Upcoming Appointment: 03/23/2022 No flowsheet data found. Lab Results Component Value Date HGB 13.0 10/31/2021 HCT 40.9 10/31/2021 CHLPL 114 12/27/2019 TRIG 102 12/27/2019 HDL 38 12/27/2019 LDLCHOL 56 12/27/2019 ALT 8 2021 AST 11 2021 NA 134 (L) 10/31/2021 K 4.7 10/31/2021 CL 98 10/31/2021 CREATININE 0.74 10/31/2021 TSH 2.40 2021 INR 1.0 07/03/2020 HA1C 5.6 2021 documented in this encounter Plan of Treatment Not on file documented as of this encounter Visit Diagnoses Diagnosis Cervicalgia Asthma with acute exacerbation, unspecified asthma severity, unspecified whether persistent documented in this encounter Care Teams Tenon Machine Operator Relationship Specialty Start Date End Date Hoang Castellanos, CHARTERED WEALTH MANAGER [address] [place] [address] PCP - General Family Medicine 03/12/20 documented as of this encounter
--- OUTSIDE RECORDS SUMMARY | 2024-02-22 00:46 | XMS_ITS | Encounter Summary ---
Author Organization Formerly [facility] Address [facility] [place] [address] Care Team Providers Care Stenciling Machine Tender Name Role Phone Hoang Castellanos APRN Primary Care Provider Encounter Details Date Type Department Care Team (Late st Contact Info) Description 04/02/2022 8:00 AM EDT Home Care Visit [facility] [address] [place] [phone] Kimberly Austin, ASSISTANT WRESTLING COACH LT PARK WORKER HOME VISIT Social History Tobacco Use Types [...] place to sleep or slept in a long term (including now)? No 03/23/2022 Sex and Gender Information Value Date Recorded Sex Assigned at Not on file Gender Identity Not on file Sexual Orientation Not on file documented as of this encounter Plan of Treatment Not on file documented as of this encounter Visit Diagnoses Not on filedocumented in this encounter Home Health Visit - Care Plan Visit Details Visit Type -LTC PARK WORKER Home Vis it Discipline -Home Health Aide Problems Problem Description Start Date Status Goals Interve ntions A Required Screenings Disciplines: [facility] 03/25/2022 Active 1 goal linked to scheduled/documente d intervention 1 goal intervention scheduled/documente d in this visit Other Disciplines: [facility] 03/25/2022 Active 1 goal linked to scheduled/documente d intervention 1 goal intervention scheduled/documente d in this visit House Keeping Disciplines: [facility] 03/25/2022 Active 1 goal linked to scheduled/documente d intervention 9 goal interventions scheduled/documente d in this visit Personal Care Disciplines: [facility] 03/25/2022 Active 1 goal linked to scheduled/documente [...] will be completed by aide as directed Completed BATHE SHOW ASSISTING ONLY NEEDED USING ASSISTIVE DEVICES Description: Bathe show assisting only as needed using assistive devices Problem:Personal Care Goal:Patient's personal care will be completed by aide as directed Completed documented in this encounter Care Teams Stenciling Machine Tender Relationship Specialty Start Date End Date Hoang Castellanos, BARN AND PROPERTY MANAGER [address] [place] [address] PCP - General Family Medicine 03/12/20 documented as of this encounter
--- OUTSIDE RECORDS SUMMARY | 2024-02-22 00:46 | XMS_ITS | Encounter Summary ---
Author Organization [facility] Address [facility] [place] [address] Care Team Providers Care Highway Traffic Control Technician Name Role Phone Hoang Castellanos APRN Primary Care Provider Encounter Details Date Type Department Care Team (Late st Contact Info) Description 04/22/2022 12:00 PM EDT Home Care Visit [facility] for Care [address] [place] [phone] Kimberly Austin, SEWAGE RETICULATION DRAFTING OFFICER LT FIRM ADMINISTRATOR HOME VISIT Social History Tobacco Use Types [...] Care Plan Visit Details Visit Type -LTC FIRM ADMINISTRATOR Home Vis it Discipline -Home Health Aide Problems Problem Description Start Date Status Goals Interve ntions A Required Screenings Disciplines: [facility] 03/25/2022 Active 1 goal linked to scheduled/documente d intervention 1 goal intervention scheduled/documente d in this visit Other Disciplines: [facility] 03/25/2022 Active 1 goal linked to scheduled/documente d intervention 1 goal intervention scheduled/documente d in this visit House Keeping Disciplines: [facility] 03/25/2022 Active 1 goal linked to scheduled/documente d intervention 9 goal interventions scheduled/documente d in this visit Personal Care Disciplines: [facility] 03/25/2022 Active 1 goal linked to [...] aide as directed Scheduled with variance N/A STRAIGHT KITCHEN AREA Description: Straighten kitchen area Problem:House [...] clean-up of patient's environment as directed Completed MOP Description: Mop Problem:House [...] refused documented in this encounter Care Teams Highway Traffic Control Technician Relationship Specialty Start Date End Date Hoang Castellanos, MACHINE HEDDLE CLEANER [address] [place] [address] PCP - General Family Medicine 03/12/20 documented as of this encounter
--- OUTSIDE RECORDS SUMMARY | 2024-02-22 00:46 | XMS_ITS | Encounter Summary ---
Author Organization [facility] Address [facility] [place] [address] Care Team Providers Care Precinct Commanding Officer Name Role Phone Hoang Castellanos APRN Primary Care Provider [phone] Reason for Referral * Physical Therapy (Routine) - Closed Specialty Diagnoses / Procedures Referred By Vanita t Referred To Contact Physical Therapy Diagnoses Cervical spinal stenosis Hoang Castellanos APRN [address] [place] [address] Physical Therapy, [address] [address] Referral ID Status Reason Start Date Expiration Date V isits Requested Visits Authorized [id number] Closed Evaluate and Treat 01/22/2022 07/21/2022 12 12 Encounter Details Date Type Department Care Team (Late st Contact Info) Description 01/22/2022 Orders Only [facility] at [facility] [address] [place] [phone] Hoang Castellanos APRN [address] [place] [address] Cervical spinal stenosis Social History Tobacco Use Types Packs/Day Years [...] place to sleep or slept in a halfway (including now)? No 12/01/2021 Sex and Gender Information Value Date Recorded Sex Assigned at Not on file Gender Identity Not on file Sexual Orientation Not on file documented as of this encounter Plan of Treatment Scheduled Referrals Name Type Priority Associated Diagnoses Orde r Schedule Referral to Physical Therapy Outpatient Referral Routine Cervical spinal stenosis Ordered: 01/22/2022 documented as of this encounter Visit Diagnoses Diagnosis Cervical spinal stenosis Spinal stenosis in cervical region documented in this encounter Care Teams Precinct Commanding Officer Relationship Specialty Start Date End Date Hoang Castellanos, STAINED GLASS WINDOW DESIGNER [address] [place] [address] PCP - General Family Medicine 03/12/20 documented as of this encounter
--- OUTSIDE RECORDS SUMMARY | 2024-02-22 00:46 | XMS_ITS | Encounter Summary ---
Author Organization [facility] Address [facility] [address] Care Team Providers Care Child Neurologist Name Role Phone Hoang Castellanos APRN Primary Care Provider Encounter Details Date Type Department Care Team (Late st Contact Info) Description 04/16/2022 8:00 AM EDT Home Care Visit [facility] for Care [address] [place] [phone] Kimberly Austin, SKEIN TIER LT FOURDRINIER OPERATOR HOME VISIT Social History Tobacco Use [...] Care Plan Visit Details Visit Type -LTC FOURDRINIER OPERATOR Home Vis it Discipline -Home Health Aide Problems Problem Description Start Date Status Goals Interve ntions A Required Screenings Disciplines: [facility] 03/25/2022 Active 1 goal linked to scheduled/documente d intervention 1 goal intervention scheduled/documente d in this visit Other Disciplines: [facility] 03/25/2022 Active 1 goal linked to scheduled/documente d intervention 1 goal intervention scheduled/documente d in this visit House Keeping Disciplines: [facility] 03/25/2022 Active 1 goal linked to scheduled/documente d intervention 9 goal interventions scheduled/documente d in this visit Personal Care Disciplines: [facility] 03/25/2022 Active 1 goal linked to scheduled/documente [...] clean-up of patient's environment as directed Completed [facility] KITCHEN AREA Description: [facility] kitchen area Problem:House Keeping Goal:Aide to [...] refused documented in this encounter Care Teams Child Neurologist Relationship Specialty Start Date End Date Hoang Castellanos, PURLER [address] [place] [address] PCP - General Family Medicine 03/12/20 documented as of this encounter
--- OUTSIDE RECORDS SUMMARY | 2024-02-22 00:46 | XMS_ITS | Encounter Summary ---
Author Organization [facility] Address [facility] [place] [address] Care Team Providers Care Children'S Minister Name Role Phone Hoang Castellanos APRN Primary Care Provider [phone] Encounter Details Date Type Department Care Team (Late st Contact Info) Description 01/21/2022 [place] [phone] Freddy Dolan PA [facility] [place] [address] Social History Tobacco Use Types Packs/Day Years [...] slept in a intermediate (including now)? No 12/01/2021 Sex and Gender Information Value Date Recorded Sex Assigned at Not on file Gender Identity Not on file Sexual Orientation Not on file documented as of this encounter Miscellaneous Notes * Telephone Encounter - Marli Hernández - 01/21/2022 2:49 PM EDT Scheduled XR and DPS for 05/20 appts Sent pt a Operax message with appt details. Jeannie Rico - 01/21/22 Freddy Dolan PA Sent: Carlota January 21, 2022 ??9:40 AM To: P [facility] [place] ?? Follow-up and Dispositions Check-out Note: FU 4 months w/ XR c-spine documented in this encounter Plan of Treatment Not on file documented as of this encounter Visit Diagnoses Not on filedocumented in this encounter Care Teams Children'S Minister Relationship Specialty Start Date End Date Hoang Castellanos APRN [address] [place] [address] PCP - General Family Medicine 03/12/20 documented as of this encounter
--- OUTSIDE RECORDS SUMMARY | 2024-02-22 00:46 | XMS_ITS | Encounter Summary ---
Author Organization [facility] Address [facility] [place] [address] Care Team Providers Care Sales And Leasing Consultant Name Role Phone Hoang Castellanos APRN Primary Care Provider [phone] Encounter Details Date Type Department Care Team (Late st Contact Info) Description 04/07/2022 12:00 PM EDT Home Care Visit [facility] [address] [place] [phone] Kimberly Austin, POLICE STENOGRAPHER LT REHABILITATION INSPECTOR HOME VISIT Social History Tobacco Use Types [...] place to sleep or slept in a usp (including now)? No 03/23/2022 Sex and Gender Information Value Date Recorded Sex Assigned at Not on file Gender Identity Not on file Sexual Orientation Not on file documented as of this encounter Plan of Treatment Not on file documented as of this encounter Visit Diagnoses Not on filedocumented in this encounter Home Health Visit - Care Plan Visit Details Visit Type -LTC REHABILITATION INSPECTOR Home Vis it Discipline -Home Health Aide [...] refused documented in this encounter Care Teams Sales And Leasing Consultant Relationship Specialty Start Date End Date Hoang Castellanos, RN SANE [address] [place] [address] PCP - General Family Medicine 03/12/20 documented as of this encounter
--- OUTSIDE RECORDS SUMMARY | 2024-02-22 00:46 | XMS_ITS | Encounter Summary ---
Author Organization [facility] Address [facility] [place] [address] Care Team Providers Care Iron Miner Blasting Name Role Phone Hoang Castellanos APRN Primary Care Provider Encounter Details Date Type Department Care Team (Late st Contact Info) Description 04/27/2022 9:00 AM EDT Home Care Visit [facility] for Care [address] [place] [phone] Kimberly Austin, CORPORATE QUALITY ASSURANCE MANAGER LT SENIOR SUPPORT ENGINEER HOME VISIT Social History Tobacco Use Types [...] place to sleep or slept in a detention (including now)? No 03/23/2022 Sex and Gender Information Value Date Recorded Sex Assigned at Not on file Gender Identity Not on file Sexual Orientation Not on file documented as of this encounter Plan of Treatment Not on file documented as of this encounter Visit Diagnoses Not on filedocumented in this encounter Home Health Visit - Care Plan Visit Details Visit Type -LTC SENIOR SUPPORT ENGINEER Home Vis it Discipline -Home Health Aide Problems Problem Description Start Date Status Goals Interve ntions A Required Screenings Disciplines: [facility] 03/25/2022 Active 1 goal linked to scheduled/documente d intervention 1 goal intervention scheduled/documente d in this visit Other Disciplines: [facility] 03/25/2022 Active 1 goal linked to scheduled/documente d intervention 1 goal intervention scheduled/documente d in this visit House Keeping Disciplines: [facility] 03/25/2022 Active 1 goal linked to scheduled/documente d intervention 9 goal interventions scheduled/documente d in this visit Personal Care Disciplines: [facility] 03/25/2022 Active 1 goal linked to [...] be perfomed by aide as directed Completed [facility] KITCHEN AREA [...] environment as directed Scheduled with variance N/A VACUUM Description: Vacuum Problem:House Keeping Goal:Aide to [...] aide as directed Scheduled with variance N/A BATHE SHOW ASSISTING ONLY NEEDED USING ASSISTIVE DEVICES Description: Bathe show assisting only as needed using assistive devices Problem:Personal Care Goal:Patient's personal care will be completed by aide as directed Scheduled with variance Patient refused documented in this encounter Care Teams Iron Miner Blasting Relationship Specialty Start Date End Date Hoang Castellanos APRN [address] [place] [address] PCP - General Family Medicine 03/12/20 documented as of this encounter
--- OUTSIDE RECORDS SUMMARY | 2024-02-22 00:46 | XMS_ITS | Encounter Summary ---
Author Organization [facility] Address [facility] [address] Care Team Providers Care Online User Experience Strategist Name Role Phone Hoang Castellanos APRN Primary Care Provider Encounter Details Date Type Department Care Team (Late st Contact Info) Description 03/25/2022 Home Care Visit [facility] for Care [address] [place] [phone] Kimberly Austin, [facility] [place] HOME VISIT Social History Tobacco Use Types [...] place to sleep or slept in a [facility] (including now)? No 03/23/2022 Sex and Gender Information Value Date Recorded Sex Assigned at Not on file Gender Identity Not on file Sexual Orientation Not on file documented as of this encounter Plan of Treatment Not on file documented as of this encounter Visit Diagnoses Not on filedocumented in this encounter Home Health Visit - Care Plan Visit Details Visit Type -LTC [place] Home Vis it Discipline -Home Health Aide Problems Problem Description Start Date Status Goals Interve ntions A Required Screenings Disciplines: [facility] 03/25/2022 Active 1 goal linked to scheduled/documente d intervention 1 goal intervention scheduled/documente d in this visit Other Disciplines: [facility] 03/25/2022 Active 1 goal linked to scheduled/documente d intervention 1 goal intervention scheduled/documente d in this visit House Keeping Disciplines: [facility] 03/25/2022 Active 1 goal linked to scheduled/documente d intervention 9 goal interventions scheduled/documente d in this visit Personal Care Disciplines: [facility] 03/25/2022 Active 1 goal linked to scheduled/documente [...] be perfomed by aide as directed Completed STRAIGHTEN KITCHEN AREA Description: [...] as directed Scheduled with variance Patient refused DUST Description: Dust Problem:House Keeping Goal:Aide to assist with clean-up of patient's environment as directed Scheduled with variance Patient refused DO LAUNDRY Description: Do Laundry Problem:House Keeping Goal:Aide to assist with clean-up of patient's environment as directed Scheduled with variance Patient refused LOTION AND OR POWDER Description: Lotion and or Powder Problem:Personal Care Goal:Patient's personal care will be completed by aide as directed Completed BATHE SHOW ASSISTING ONLY NEEDED USING ASSISTIVE DEVICES Description: Bathe show assisting only as needed using assistive devices Problem:Personal Care Goal:Patient's personal care will be completed by aide as directed Completed documented in this encounter Care Teams Online User Experience Strategist Relationship Specialty Start Date End Date Hoang Castellanos, SYNOPTIC METEOROLOGIST [address] [place] [address] PCP - General Family Medicine 03/12/20 documented as of this encounter
--- OUTSIDE RECORDS SUMMARY | 2024-02-22 00:46 | XMS_ITS | Encounter Summary ---
Author Organization [facility] Address [facility] [place] [address] Care Team Providers Care Aerospace Physiological Technician Name Role Phone Hoang Castellanos APRN Primary Care Provider Reason for Visit * Reason Onset Date Comments Prior Authorization 04/20/2022 Spiriva Resp imat 2.5mcg Encounter Details Date Type Department Care Team (Late st Contact Info) Description 04/20/2022 Telephone Primary Care at [facility] [address] [place] [phone] Gautam Davidson Prior Authorization (Spiriva Respimat 2.5mcg) Social History Tobacco Use Types Packs/Day Years [...] to sleep or slept in a senior living (including now)? No 03/23/2022 Sex and Gender Information Value Date Recorded Sex Assigned at Not on file Gender Identity Not on file Sexual Orientation Not on file documented as of this encounter Miscellaneous Notes * Telephone Encounter - Deepa Spencer - 04/23/2022 9:44 AM EDT Medication Prior Authorization Approval Approved: Yes Start Date: 07/25/2021 End Date: 04/20/2023 Case/Reference #: Was Patient Notified: Yes Was Pharmacy Notified: Yes See Approval Letter in scanned documents. * Telephone Encounter - Gautam Davidson - 04/20/2022 10:40 AM EDT Medication Prior Authorization Request received via: Fax from [employer]: Medicare Part D Renewed previous Prior Authorization Sent via: Cover my meds [place]: [id number] Physician: Hoang Castellanos APRN Medication Requested: Spiriva Respimat Strength: 2.5MCG Frequency/Sig: Inhale 2 puffs into the lungs nightly Disp: 3 each Refills: 3 Currently taking: yes If yes, how lon09/12/18 Diagnosis for this medication: ICD-10 code: J45.901 Prior medications trialed in this patient: Atrovent HFA and Incruse Ellipta based off of the prior authorization that was submitted in 2020 Additional Notes: documented in this encounter Plan of Treatment Not on file documented as of this encounter Visit Diagnoses Not on filedocumented in this encounter Care Teams Aerospace Physiological Technician Relationship Specialty Start Date End Date Hoang Castellanos, COUNTERPERSON [address] [place] [address] PCP - General Family Medicine 03/12/20 documented as of this encounter
--- OUTSIDE RECORDS SUMMARY | 2024-02-22 00:46 | XMS_ITS | Encounter Summary ---
Author Organization [facility] Address [place] [address] Care Team Providers Care Collection Correspondent Name Role Phone Hoang Castellanos APRN Primary Care Provider [phone] Encounter Details Date Type Department Care Team (Late st Contact Info) Description 03/26/2022 Home Care Visit [facility] Choices for Care [address] [place] [phone] Kimberly Austin, [facility] INVENTORY CHECKER HOME VISIT Social History Tobacco Use Types [...] place to sleep or slept in a [facility] (including now)? No 03/23/2022 Sex and Gender Information Value Date Recorded Sex Assigned at Not on file Gender Identity Not on file Sexual Orientation Not on file documented as of this encounter Plan of Treatment Not on file documented as of this encounter Visit Diagnoses Not on filedocumented in this encounter Home Health Visit - Care Plan Visit Details Visit Type -LTC INVENTORY CHECKER Home Vis it Discipline -Home Health Aide Problems Problem Description Start Date Status Goals Interve ntions A Required Screenings Disciplines: [facility] 03/25/2022 Active 1 goal linked to scheduled/documente d intervention 1 goal intervention scheduled/documente d in this visit Other Disciplines: [facility] 03/25/2022 Active 1 goal linked to scheduled/documente d intervention 1 goal intervention scheduled/documente d in this visit House Keeping Disciplines: [facility] 03/25/2022 Active 1 goal linked to scheduled/documente d intervention 9 goal interventions scheduled/documente d in this visit Personal Care Disciplines: [facility] 03/25/2022 Active 1 goal linked to [...] be perfomed by aide as directed Completed DO LAUNDRY Description: Do Laundry Problem:House Keeping Goal:Aide to assist with clean-up of patient's environment as directed Completed with variance Equipment unavailable MOP Description: Mop Problem:House Keeping Goal:Aide to [...] clean-up of patient's environment as directed Completed LOTION AND OR POWDER Description: Lotion and [...] refused documented in this encounter Care Teams Collection Correspondent Relationship Specialty Start Date End Date Hoang Castellanos, DIRECTOR OF OUTPATIENT SERVICES [address] [place] [address] PCP - General Family Medicine 03/12/20 documented as of this encounter
--- OUTSIDE RECORDS SUMMARY | 2024-02-22 00:46 | XMS_ITS | Encounter Summary ---
Author Organization [facility] Address [facility] [place] [place] [address] Care Team Providers Care Skein Inspector Name Role Phone Hoang Casetllanos APRN Primary Care Provider Reason for Referral * [facility] Assisted Care (Routine) - Closed Specialty Diagnoses / Procedures Referred By Contdavide t Referred To Contact Home Health Services Diagnoses Age-related physical debility Visiting Nurse, [facility] [address] [address] [facility] Choices For Care [address] [place] [phone] Referral ID Status Reason Start Date Expiration Date V isits Requested Visits Authorized [id number] Closed Consult, Test & Treat 03/03/2022 03/03/[phone] Encounter Details Date Type Department Care Team (Late st Contact Info) Description 03/03/2022 Transcribe Orders eD Incoming Referrals [phone] Visiting Nurse, [facility] [address] [address] Age-related physical debility Social History Tobacco Use Types Packs/Day Years [...] slept in a detention (including now)? 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
--- OUTSIDE RECORDS SUMMARY | 2024-02-22 00:46 | XMS_ITS | Encounter Summary ---
Author Organization [facility] Address [facility] [place] [address] Care Team Providers Care Director Of Cath Lab Name Role Phone Hoang Castellanos APRN Primary Care Provider [phone] Encounter Details Date Type Department Care Team (Late st Contact Info) Description 04/20/2022 8:15 AM EDT Home Care Visit [facility] for Care [address] [place] [phone] Kimberly Austin, RIM BUSTER LT RISK MANAGEMENT SPECIALIST HOME VISIT Social History Tobacco Use [...] Care Plan Visit Details Visit Type -LTC RISK MANAGEMENT SPECIALIST Home Vis it Discipline -Home Health Aide Problems Problem Description Start Date Status Goals Interve ntions A Required Screenings Disciplines: [facility] 03/25/2022 Active 1 goal linked to scheduled/documente d intervention 1 goal intervention scheduled/documente d in this visit Other Disciplines: [facility] 03/25/2022 Active 1 goal linked to scheduled/documente d intervention 1 goal intervention scheduled/documente d in this visit House Keeping Disciplines: [facility] 03/25/2022 Active 1 goal linked to scheduled/documente d intervention 9 goal interventions scheduled/documente d in this visit Personal Care Disciplines: [facility] 03/25/2022 Active 1 goal linked to [...] Associated Problem/Goal Status Variance Visit Notes COVID-19 (CONROY VIRUS) SCREEN QUESTIONS Description: Complete COVID-19 (Conroy virus) screening questions Problem:A Required Screenings Goal:Screenings will be perfomed by aide as directed Completed [employer] Description: Shop for Groceries Problem:Other Goal:Additional duties for patient will be perfomed by aide as directed Scheduled with variance N/A MOP Description: Mop Problem:House Keeping Goal:Aide to assist with clean-up of patient's environment as directed Completed [facility] KITCHEN AREA Description: Straighten kitchen area [...] refused documented in this encounter Care Teams Director Of Cath Lab Relationship Specialty Start Date End Date Hoang Castellanos, TOWN PLANNER [address] [place] [address] PCP - General Family Medicine 03/12/20 documented as of this encounter
--- OUTSIDE RECORDS SUMMARY | 2024-02-22 00:46 | XMS_ITS | Encounter Summary ---
Author Organization [facility] Address [facility] [place] [address] Care Team Providers Care Maintenance Representative Name Role Phone Hoang Castellanos APRN Primary Care Provider Encounter Details Date Type Department Care Team (Late st Contact Info) Description 04/15/2022 12:00 PM EDT Home Care Visit [facility] for Care [address] [place] [phone] Kimberly Austin, REVIT DRAFTER LT SPIRITUAL ADVISOR HOME VISIT Social History Tobacco Use Types [...] slept in a fdc (including now)? No 03/23/2022 Sex and Gender Information Value Date Recorded Sex Assigned at Not on file Gender Identity Not on file Sexual Orientation Not on file documented as of this encounter Plan of Treatment Not on file documented as of this encounter Visit Diagnoses Not on filedocumented in this encounter Home Health Visit - Care Plan Visit Details Visit Type -LTC SPIRITUAL ADVISOR Home Vis it Discipline -Home Health Aide Problems Problem Description Start Date Status Goals Interve ntions A Required Screenings Disciplines: [facility] 03/25/2022 Active 1 goal linked to scheduled/documente d intervention 1 goal intervention scheduled/documente d in this visit Other Disciplines: [facility] 03/25/2022 Active 1 goal linked to scheduled/documente d intervention 1 goal intervention scheduled/documente d in this visit House Keeping Disciplines: [facility] 03/25/2022 Active 1 goal linked to scheduled/documente d intervention 9 goal interventions scheduled/documente d in this visit Personal Care Disciplines: [facility] 03/25/2022 Active 1 goal linked to scheduled/documente [...] refused documented in this encounter Care Teams Maintenance Representative Relationship Specialty Start Date End Date Hoang Castellanos, CELLOPHANE BAG MACHINE OPERATOR [address] [place] [address] PCP - General Family Medicine 03/12/20 documented as of this encounter
--- OUTSIDE RECORDS SUMMARY | 2024-02-22 00:46 | XMS_ITS | Encounter Summary ---
Author Organization [facility] [place] [address] Care Team Providers Care Logistics Planner Name Role Phone Hoang Castellanos APRN Primary Care Provider Reason for Visit * Reason Comments Medication Refill Encounter Details Date Type Department Care Team (Late st Contact Info) Description 04/12/2022 Refill Primary Care at [facility] [address] [facility] [phone] Hoang Castellanos APRN [address] [place] [place] [address] Social History Tobacco Use Types Packs/Day Years [...] place to sleep or slept in a retirement (including now)? No 03/23/2022 Sex and Gender Information Value Date Recorded Sex Assigned at Not on file Gender Identity Not on file Sexual Orientation Not on file documented as of this encounter Miscellaneous Notes * Telephone Encounter - Rachel Serrano MA - 04/12/2022 1:35 PM EDT Last Prescription Fill Date: 12/01/2021- [facility] Medical Number Dispensed and Refills: 1 puff Last Related Office Visit: 03/23/2022 Upcoming Appointment: Visit date not found No flowsheet data found. Lab Results Component Value Date HGB 13.2 03/31/2022 HCT 42.9 03/31/2022 CHLPL 103 03/31/2022 TRIG 111 03/31/2022 HDL 47 03/31/2022 LDLCHOL 34 03/31/2022 ALT 10 03/31/2022 AST 11 03/31/2022 NA 143 03/31/2022 K 4.2 03/31/2022 CL 104 03/31/2022 CREATININE 0.72 03/31/2022 TSH 2.42 03/31/2022 INR 1.0 07/03/2020 HA1C 6.0 (H) 03/31/2022 Last Prescription Fill Date: Ibuprofen Number Dispensed and Refills: ? Last Related Office Visit: 03/23/2022 Upcoming Appointment: Visit date not found No flowsheet data found. Lab Results Component Value Date HGB 13.2 03/31/2022 HCT 42.9 03/31/2022 CHLPL 103 03/31/2022 TRIG 111 03/31/2022 HDL 47 03/31/2022 LDLCHOL 34 03/31/2022 ALT 10 03/31/2022 AST 11 03/31/2022 NA 143 03/31/2022 K 4.2 03/31/2022 CL 104 03/31/2022 CREATININE 0.72 03/31/2022 TSH 2.42 03/31/2022 INR 1.0 07/03/2020 HA1C 6.0 (H) 03/31/2022 documented in this encounter Plan of Treatment Not on file documented as of this encounter Visit Diagnoses Not on filedocumented in this encounter Care Teams Logistics Planner Relationship Specialty Start Date End Date Hoang Castellanos APRN [address] [place] [address] PCP - General Family Medicine 03/12/20 documented as of this encounter
--- OUTSIDE RECORDS SUMMARY | 2024-02-22 00:46 | XMS_ITS | Encounter Summary ---
Author Organization [facility] Address [facility] [place] [address] Care Team Providers Care Career Coordinator Name Role Phone Hoang Castellanos APRN Primary Care Provider Encounter Details Date Type Department Care Team (Late st Contact Info) Description 04/20/2022 Home Care Visit [facility] for Care [address] [place] [phone] Farrah Jama TELEPHONE ENCOUNTER Social History Tobacco Use Types Packs/Day Years [...] the money to buy more. Sometimes true 08 / Within the past 12 months, t he [...] place to sleep or slept in a custodial (including now)? No 03/23/2022 Sex and Gender Information Value Date Recorded Sex Assigned at Not on file Gender Identity Not on file Sexual Orientation Not on file documented as of this encounter Miscellaneous Notes * Case Communication - Farrah Jama - 04/21/2022 12:46 PM EDTSPOKE TO COA CASE MANAGE [facility] [employer] CLIENT IS RECEIVING THRU [facility]. PER BRITTA CLIENT IS VERY HAPPY WITH MINERALOGY TEACHER. SHE DOES A WONDERFUL JOB, PER BRITTA NEED TO ADD COOKING TO THE CARE GLADYS THE MINERALOGY TEACHER ONCE IN AWHILE WILL MAKE MEALS FOR THE CLIENT. BRITTA ALSO INDICATED THAT CLIENT WOULD LIKE 3 HOURS EACH DAY IF POSSIBLE. I LET BRITTA KNOW THAT I WOULD LOOK AT THE MINERALOGY TEACHER'S SCHEDULE AND SEE WHAT WE COULD DO. OTHER THAN THAT, BRITTA INDICATED THE CLIENT HAS NO QUESTIONS OR CONCERNS AT THIS TIME. documented in this encounter Plan of Treatment Not on file documented as of this encounter Visit Diagnoses Not on filedocumented in this encounter Care Teams Career Coordinator Relationship Specialty Start Date End Date Hoang Castellanos APRN [address] [place] [address] PCP - General Family Medicine 03/12/20 documented as of this encounter
--- OUTSIDE RECORDS SUMMARY | 2024-02-22 00:46 | XMS_ITS | Encounter Summary ---
Author Organization [facility] Address [facility] [place] [address] Care Team Providers Care Epic Beacon Analyst Name Role Phone Hoang Castellanos APRN Primary Care Provider [phone] Reason for Visit * Reason Onset Date Comments Colonoscopy 03/25/2022 Pt screening jessica sierra Encounter Details Date Type Department Care Team (Late st Contact Info) Description 03/25/2022 Telephone Surgical Specialties at [facility] [address] [facility] [place] [phone] [place] Arvizu Colonoscopy (Pt screening questions) Social History Tobacco Use Types Packs/Day Years [...] slept in a chcf (including now)? No 03/23/2022 Sex and Gender Information Value Date Recorded Sex Assigned at Not on file Gender Identity Not on file Sexual Orientation Not on file documented as of this encounter Miscellaneous Notes * Telephone Encounter - Kingston Arvizu - 03/25/2022 10:20 AM EDT Jeannie Rico [phone] PCP: Hoang Castellanos APRN Received referral: Yes Received last office note: Yes Insurance verified: Yes Diagnosis/Indication: Screening ICD-10 Codes: Z12.11 1. Have you ever had a/an Colonoscopy before? No If yes, did you have any problems with the procedure? No What type of sedation was used? N/A Have you had a problem with sedation or anesthesia? No 2. Do you take any Blood Thinners such as Coumadin, Xeralto, Eliquis, or Brilinta? No 3. Do you have any cardiac disease? Such as a history of heart surgery, stent placement, or PA (heart attack)? No 4. Do you have a Pacemaker or Defibrillator device? No 5. Are you a diabetic? No 6. Do you have any Allergies to Eggs, Latex or Medications? Yes: in edh 7. Have you had any recent lab work within the last 3 months? No 8. Do you have any respiratory issues such as a recent COVID infection, sleep apnea, COPD, or asthma. yes 9. Do you have a c-pap machine or oxygen tank? Neither 10. Are you on dialysis? No 11. Do you take prescription narcotic pain medications, including suboxone or methodone? No 12. Have you been diagnoses with or experiencing constipation? Yes 13. Do you have a daily bowel movement? No 14. Have you had any problems with colonoscopy prep in the past (including being told that it was poor or incomplete)? No 15. Are you allergic or unable to tolerate Miralax due to side effects of nausea and vomiting? No *Please Verify the height and weight, and adjust if height and/or weight have changed* Estimated body mass index is 41.37 kg/m?? as calculated from the following: Height as of 03/23/22: 157.5 cm (5' 2). Weight as of 03/23/22: 102.6 kg (226 lb 3.2 oz). documented in this encounter Plan of Treatment Not on file documented as of this encounter Visit Diagnoses Not on filedocumented in this encounter Care Teams Epic Beacon Analyst Relationship Specialty Start Date End Date Hoang Castellanos, SAM [address] [place] [address] PCP - General Family Medicine 03/12/20 documented as of this encounter
--- OUTSIDE RECORDS SUMMARY | 2024-02-22 00:46 | XMS_ITS | Encounter Summary ---
Author Organization [facility] Address [facility] [place] [address] Care Team Providers Care Children'S Tutor Name Role Phone Hoang Castellanos APRN Primary Care Provider Encounter Details Date Type Department Care Team (Late st Contact Info) Description 04/14/2022 12:00 PM EDT Home Care Visit [facility] for Care [address] [place] [phone] Kimberly Austin, CYBER THREAT ANALYST LT CHORE TENDER HOME VISIT Social History Tobacco Use Types [...] Care Plan Visit Details Visit Type -LTC CHORE TENDER Home Vis it Discipline -Home Health Aide Problems Problem Description Start Date Status Goals Interve ntions A Required Screenings Disciplines: [facility] 03/25/2022 Active 1 goal linked to scheduled/documente d intervention 1 goal intervention scheduled/documente d in this visit Other Disciplines: [facility] 03/25/2022 Active 1 goal linked to scheduled/documente d intervention 1 goal intervention scheduled/documente d in this visit House Keeping Disciplines: [facility] 03/25/2022 Active 1 goal linked to scheduled/documente d intervention 9 goal interventions scheduled/documente d in this visit Personal Care Disciplines: [facility] 03/25/2022 Active 1 goal linked [...] Completed documented in this encounter Care Teams Children'S Tutor Relationship Specialty Start Date End Date Hoang Castellanos APRN [address] [place] [phone] PCP - General Family Medicine 03/12/20 documented as of this encounter
--- OUTSIDE RECORDS SUMMARY | 2024-02-22 00:46 | XMS_ITS | Encounter Summary ---
Author Organization [facility] [place] [address] Care Team Providers Care Gig Tender Name Role Phone Hoang Castellanos APRN Primary Care Provider Encounter Details Date Type Department Care Team (Latest Contact Info) Description 02/23/2022 Transcribe Orders Laboratory at [facility] [place] [phone] Sophie Mejia MD [address] [place] [id number] Encounter for long-term (current) use of other medications; Explosive personality disorder Social History Tobacco Use Types Packs/Day Years [...] place to sleep or slept in a correction (including now)? No 12/01/2021 Sex and Gender Information Value Date Recorded Sex Assigned at Not on file Gender Identity Not on file Sexual Orientation Not on file documented as of this encounter Plan of Treatment Not on file documented as of this encounter Results * TSH (03/31/2022 9:29 AM EDT) TSH 2.42 0.27 - 4.20 mcIU/mL [facility] Comment: Reference Interval (mcIU/mL): Females: ??First Trimester: 0.23-3.88 ??Second Trimester: 0.22-3.90 ??Third Trimester: 0.44-4.66 Blood 03/31/2022 9:29 AM EDT 03/31/2022 11:41 AM EDT Narrative Resulting Agency Comment Spec In Lab Sophie Mejia MD CHEMISTRY ORDERABLES [facility] [address] [place] [address] * Lipid Panel (Reflex Direct LDL) (03/31/2022 9:29 AM EDT) Chol, Total 103 mg/dL [facility] Comment: Lower Risk: <200 mg/dL Average Risk: 200-239 mg/dL Higher Risk: >rq=360 mg/dL Triglycerides 111 mg/dL [facility] Comment: Average Risk/Lower Risk: <150 mg/dL Borderline High Risk: 150-199 mg/dL High Risk: 200-499 mg/dL Very High Risk: >hc=926 mg/dL HDL 47 mg/dL [facility] Comment: Males: ?? Higher Risk: <40 mg/dL Females: ?? Higher Risk: <50 mg/dL LDL Cholesterol 34 mg/dL [facility] Comment: Lowest Risk: <100 mg/dL Lower Risk: 100-129 mg/dL Borderline High Risk: 130-159 mg/dL High Risk: 160-189 mg/dL Very High Risk: >wf=791 mg/dL Chol/HDL Ratio 2.2 ratio [facility] Lipid Interpretation See Note [facility] Comment: Lipid management should be guided by a patient? s ASCVD risk, goals and preferences. ACC/AHA Guidelines recommend high intensity statin if clinical ASCVD or LDL greater than or equal to 190 mg/dL. http://TempoIQ.com/TMB-DIK-Agstzhapv Adults aged 40-75 with LDL 70-189 mg/dL should have their 10 year ASCVD risk estimated with the ACC/AHA ASCVD risk reel repairer http://tools.acc.org/KXOFW-Xtnq-Wvumbjznk/ Statin should be discussed if risk greater than or equal to 7.5% in non-diabetics. With diabetes, moderate intensity statin is recommended if risk less than 7.5%, high intensity if risk greater than or equal to 7.5%. Annual lipid monitoring on statins is not necessary. Evaluate secondary causes of Triglycerides greater than 500 mg/dL or LDL greater than 190 mg/dL: See table 6 of ACC/AHA Guideline. Lifestyle modification is a critical component of ASCVD risk reduction. Blood 03/31/2022 9:29 AM EDT 03/31/2022 11:41 AM EDT Narrative Resulting Agency Comment Spec In Lab Sophie Mejia MD CHEMISTRY ORDERABLES [facility] [address] [place] [address] * (ABNORMAL) CMP w/fasting Glucose (03/31/2022 9:29 AM EDT) Glucose Fasting 99 65 - 99 mg/dL [facility] Comment: ?Fasting* Glucose Interpretive Criteria Normal ?65-99 mg/dL Impaired Fasting glucose ?100-125 mg/dL Consistent with Diabetes Mellitus ? >or= 126 mg/dL *Fasting is defined as no caloric intake for at least 8 hours In the absence of unequivocal hyperglycemia a plasma glucose value of >or= 126 mg/dL should be repeated on a subsequent day. Diagnosis and Classification of Diabetes Mellitus, Position Statement from the [place] Diabetes Association. ??Diabetes Care, Volume 33, Supplement 1, Jul 2009 BUN 18 8 - 18 mg/dL [facility] Creatinine 0.72 0.70 - 1.20 mg/dL [facility] Sodium 143 135 - 145 mmol/L [facility] Potassium 4.2 3.5 - 5.0 mmol/L [facility] Comment: Please note: ??Patients with WBC >100,000 may have falsely elevated Potassium levels. ??For accurate Potassium quantification in these patients send serum separator tube (gold top) for subsequent determinations. ??Contact the Clinical Chemistry Laboratory if there are any questions. Chloride 104 98 - 107 mmol/L [facility] CO2 28 22 - 31 mmol/L [facility] Anion Gap 11 5 - 15 mmol/L [facility] Calcium 9.7 8.5 - 10.5 mg/dL [facility] Total Protein 6.9 6.1 - 8.0 g/dL [facility] Albumin 4.0 3.2 - 5.2 g/dL [facility] AST 11 0 - 30 unit/L [facility] ALT 10 0 - 30 unit/L [facility] Alk Phos 134(H) 35 - 105 unit/L [facility] Total Bilirubin 0.2 0.2 - 1.3 mg/dL [facility] Estimated GFR 95 >=60 mL/min/1. 73 m?? [facility] Comment: This patient's estimated GFR was [...] and symptoms in addition to eGFR. Blood 03/31/2022 9:29 AM EDT 03/31/2022 11:41 AM EDT Narrative Resulting Agency Comment Spec In Lab Sophie Mejia MD CHEMISTRY ORDERABLES [facility] [address] [place] [address] documented in this encounter Visit Diagnoses Diagnosis Encounter for long-term (current) use of other medications Explosive personality disorder documented in this encounter Care Teams Gig Tender Relationship Specialty Start Date End Date Hoang Castellanos, SAM [address] [address] PCP - General Family Medicine 03/12/20 documented as of this encounter
--- OUTSIDE RECORDS SUMMARY | 2024-02-22 00:46 | XMS_ITS | Encounter Summary ---
Author Organization [facility] [place] [address] Care Team Providers Care Cable Worker Helper Name Role Phone Hoang Castellanos APRN Primary Care Provider Encounter Details Date Type Department Care Team (Late st Contact Info) Description 03/25/2022 Telephone Primary Care at [facility] 10 [facility] [place] [phone] Jeannie Luciano, RN Social History Tobacco Use [...] place to sleep or slept in a long-term (including now)? No 03/23/2022 Sex and Gender Information Value Date Recorded Sex Assigned at Not on file Gender Identity Not on file Sexual Orientation Not on file documented as of this encounter Miscellaneous Notes * Telephone Encounter - Jeannie Luciano RN - 03/31/2022 8:33 AM EDT Images from the original note were not included. Called to speak with Jeannie and she does consent to referral. Demographics, medlist and notes faxed to facility. Lashawn Brunner, DISTRICT COURT JUDGE to Me ??? Hoang Castellanos, SOLUTION DEVELOPER ?? 12:30 PM Samara Gallegos provides Level II (SNF) and Level III ([facility]). We can certainly send a referral, is pt/spouse consenting to referral? Thanks Lashawn * Telephone Encounter - Jeannie Luciano RN - 03/25/2022 1:55 PM EDT Message received from Angela at [facility] ([facility] on file) asking for call back to discuss a referral to an JUDITH for Jeannie. [facility] is Samara Gallegos in [facility]. Contact at [facility] is Colin Martinez [phone] fax#[phone]. Angela said a referral is needed to the facility, tried to reach pt to discuss, no answer, msg left. Discussed with SW Lashawn Brunner for assistance in this matter as I am not familiar with this process. Note routed to PCP and SW. documented in this encounter Plan of Treatment Not on file documented as of this encounter Visit Diagnoses Not on filedocumented in this encounter Care Teams Cable Worker Helper Relationship Specialty Start Date End Date Hoang Castellanos, SOLUTION DEVELOPER [address] [place] [address] PCP - General Family Medicine 03/12/20 documented as of this encounter
--- OUTSIDE RECORDS SUMMARY | 2024-02-22 00:46 | XMS_ITS | Encounter Summary ---
Author Organization [facility] Address [facility] [address] Care Team Providers Care Incinerator Attendant Name Role Phone Hoang Castellanos APRN Primary Care Provider Encounter Details Date Type Department Care Team (Late st Contact Info) Description 03/30/2022 8:00 AM EDT Home Care Visit [facility] for Care [address] [place] [phone] Kimberly Austin, CHANGE MANAGEMENT MANAGER LT GATE OPERATOR HOME VISIT Social History Tobacco Use [...] Care Plan Visit Details Visit Type -LTC GATE OPERATOR Home Vis it Discipline -Home Health Aide Problems Problem Description Start Date Status Goals Interve ntions A Required Screenings Disciplines: [facility] 03/25/2022 Active 1 goal linked to scheduled/documente d intervention 1 goal intervention scheduled/documente d in this visit Other Disciplines: [facility] 03/25/2022 Active 1 goal linked to scheduled/documente d intervention 1 goal intervention scheduled/documente d in this visit House Keeping Disciplines: [facility] 03/25/2022 Active 1 goal linked to scheduled/documente d intervention 9 goal interventions scheduled/documente d in this visit Personal Care Disciplines: [facility] 03/25/2022 Active 1 goal linked to [...] refused documented in this encounter Care Teams Incinerator Attendant Relationship Specialty Start Date End Date Hoang Castellanos APRN [address] [place] [address] PCP - General Family Medicine 03/12/20 documented as of this encounter
--- OUTSIDE RECORDS SUMMARY | 2024-02-22 00:46 | XMS_ITS | Encounter Summary ---
Author Organization [facility] Address [facility] [place] [address] Care Team Providers Care Assistant Import Manager Name Role Phone Hoang Castellanos APRN Primary Care Provider Encounter Details Date Type Department Care Team (Late st Contact Info) Description 04/23/2022 11:00 AM EDT Home Care Visit [facility] for Care [address] [place] [phone] Kimberly Austin, METAL SPRAYER MACHINED PARTS LT FAMILY HELPER HOME VISIT Social History Tobacco Use Types [...] Care Plan Visit Details Visit Type -LTC FAMILY HELPER Home Vis it Discipline -Home Health Aide Problems Problem Description Start Date Status Goals Interve ntions A Required Screenings Disciplines: [facility] 03/25/2022 Active 1 goal linked to scheduled/documente d intervention 1 goal intervention scheduled/documente d in this visit Other Disciplines: [facility] 03/25/2022 Active 1 goal linked to scheduled/documente d intervention 1 goal intervention scheduled/documente d in this visit House Keeping Disciplines: [facility] 03/25/2022 Active 1 goal linked to scheduled/documente d intervention 9 goal interventions scheduled/documente d in this visit Personal Care Disciplines: [facility] 03/25/2022 Active 1 goal linked to [...] refused documented in this encounter Care Teams Assistant Import Manager Relationship Specialty Start Date End Date Hoang Castellanos, MANAGER WOUND [address] [place] [address] PCP - General Family Medicine 03/12/20 documented as of this encounter
--- OUTSIDE RECORDS SUMMARY | 2024-02-22 00:46 | XMS_ITS | Encounter Summary ---
Author Organization [facility] Address [facility] [place] [address] Care Team Providers Care Manager Social Responsibility Name Role Phone Hoang Castellanos APRN Primary Care Provider [phone] Encounter Details Date Type Department Care Team (Late st Contact Info) Description 04/13/2022 9:30 AM EDT Home Care Visit [facility] for Care [address] [place] [phone] Kimberly Austin, WOOD POLISHER LT RESPIRATORY CLINICIAN HOME VISIT Social History Tobacco Use Types [...] Care Plan Visit Details Visit Type -LTC RESPIRATORY CLINICIAN Home Vis it Discipline -Home Health Aide Problems Problem Description Start Date Status Goals Interve ntions A Required Screenings Disciplines: [facility] 03/25/2022 Active 1 goal linked to scheduled/documente d intervention 1 goal intervention scheduled/documente d in this visit Other Disciplines: [facility] 03/25/2022 Active 1 goal linked to scheduled/documente d intervention 1 goal intervention scheduled/documente d in this visit House Keeping Disciplines: [facility] 03/25/2022 Active 1 goal linked to scheduled/documente d intervention 9 goal interventions scheduled/documente d in this visit Personal Care Disciplines: [facility] 03/25/2022 Active 1 goal linked [...] refused documented in this encounter Care Teams Manager Social Responsibility Relationship Specialty Start Date End Date Hoang Castellanos, SENIOR MECHANICAL TECHNICIAN [address] [facility] [place] [address] PCP - General Family Medicine 03/12/20 documented as of this encounter
--- OUTSIDE RECORDS SUMMARY | 2024-02-22 00:46 | XMS_ITS | Encounter Summary ---
Author Organization [facility] Address [facility] [place] [address] Care Team Providers Care Recreation Adviser Name Role Phone Hoang Castellanos APRN Primary Care Provider Encounter Details Date Type Department Care Team (Late st Contact Info) Description 04/26/2022 12:00 PM EDT Home Care Visit [facility] for Care [address] [place] [phone] Kimberly Austin, FINISH MACHINE TENDER LT STAFF COUNSELOR HOME VISIT Social History Tobacco Use Types [...] Care Plan Visit Details Visit Type -LTC STAFF COUNSELOR Home Vis it Discipline -Home Health Aide Problems Problem Description Start Date Status Goals Interve ntions A Required Screenings Disciplines: [facility] 03/25/2022 Active 1 goal linked to scheduled/documente d intervention 1 goal intervention scheduled/documente d in this visit Other Disciplines: [facility] 03/25/2022 Active 1 goal linked to scheduled/documente d intervention 1 goal intervention scheduled/documente d in this visit House Keeping Disciplines: [facility] 03/25/2022 Active 1 goal linked to scheduled/documente d intervention 9 goal interventions scheduled/documente d in this visit Personal Care Disciplines: [facility] 03/25/2022 Active 1 goal linked to [...] be perfomed by aide as directed Completed STRAIGHT KITCHEN AREA Description: Straighten kitchen area [...] environment as directed Scheduled with variance N/A SWEEP Description: Sweep Problem:House Keeping Goal:Aide to assist with clean-up of patient's environment as directed Scheduled with variance N/A DUST Description: Dust Problem:House Keeping Goal:Aide to assist with clean-up of patient's environment as directed Scheduled with variance N/A CLEAN BATHROOM Description: Clean Bathroom Problem:House Keeping [...] refused documented in this encounter Care Teams Recreation Adviser Relationship Specialty Start Date End Date Hoang Castellanos, RECEIVING CHECKER [address] [place] [address] PCP - General Family Medicine 03/12/20 documented as of this encounter
--- OUTSIDE RECORDS SUMMARY | 2024-02-22 00:46 | XMS_ITS | Encounter Summary ---
Author Organization [place] [address] Care Team Providers Care Child & Adolescent Psychiatrist Name Role Phone Hoang Castellanos APRN Primary Care Provider Reason for Visit * Reason Comments Medication Refill Encounter Details Date Type Department Care Team (Late st Contact Info) Description 02/15/2022 Refill Primary Care at [facility] [address] [place] [phone] Hoang Castellanos APRN [address] [place] [address] B12 deficiency Social History Tobacco Use Types Packs/Day Years [...] place to sleep or slept in a half-way (including now)? No 12/01/2021 Sex and Gender Information Value Date Recorded Sex Assigned at Not on file Gender Identity Not on file Sexual Orientation Not on file documented as of this encounter Miscellaneous Notes * Telephone Encounter - [facility], [facility] - 02/15/2022 1:45 PM EDT Requested Prescriptions Pending Prescriptions Disp Refills ??? cyanocobalamin, Vitamin B-12, (Vitamin B-12) 1,000 mcg Tablet [Pharmacy Med Name: Vitamin B-12 1000 MCG Tablet] 4 tablet 11 Sig: TAKE ONE (1) TABLET BY MOUTH ONCE WEEKLY (PM) Last Prescription Fill Date: 03/17/21 Number Dispensed and Refills: 11/02 Last Related Office Visit: 12/01/21 Upcoming Appointment: 03/10/2022 No flowsheet data found. Lab Results Component [...] as of this encounter Visit Diagnoses Diagnosis B12 deficiency Other B-complex deficiencies documented in this encounter Care Teams Child & Adolescent Psychiatrist Relationship Specialty Start Date End Date Hoang Castellanos, HIGH RISK OB [address] [place] [address] PCP - General Family Medicine 03/12/20 documented as of this encounter
--- OUTSIDE RECORDS SUMMARY | 2024-02-22 00:46 | XMS_ITS | Encounter Summary ---
Author Organization [facility] Address [facility] [place] [address] Care Team Providers Care Liquor Bridge Operator Helper Name Role Phone Hoang Castellanos APRN Primary Care Provider Encounter Details Date Type Department Care Team (Late st Contact Info) Description 04/19/2022 11:00 AM EDT Home Care Visit [facility] for Care [address] [place] [phone] Kimberly Austin, SHOE LAY OUT PLANNER LT SUPERVISOR SALVAGE HOME VISIT Social History Tobacco Use Types [...] slept in a halfway (including now)? No 03/23/2022 Sex and Gender Information Value Date Recorded Sex Assigned at Not on file Gender Identity Not on file Sexual Orientation Not on file documented as of this encounter Plan of Treatment Not on file documented as of this encounter Visit Diagnoses Not on filedocumented in this encounter Home Health Visit - Care Plan Visit Details Visit Type -LTC SUPERVISOR SALVAGE Home Vis it Discipline -Home Health Aide Problems Problem Description Start Date Status Goals Interve ntions A Required Screenings Disciplines: [facility] 03/25/2022 Active 1 goal linked to scheduled/documente d intervention 1 goal intervention scheduled/documente d in this visit Other Disciplines: [facility] 03/25/2022 Active 1 goal linked to scheduled/documente d intervention 1 goal intervention scheduled/documente d in this visit House Keeping Disciplines: [facility] 03/25/2022 Active 1 goal linked to scheduled/documente d intervention 9 goal interventions scheduled/documente d in this visit Personal Care Disciplines: [facility] 03/25/2022 Active 1 goal linked to scheduled/documente [...] aide as directed Scheduled with variance N/A STRAIGHTEN KITCHEN AREA Description: Straighten kitchen area [...] refused documented in this encounter Care Teams Liquor Bridge Operator Helper Relationship Specialty Start Date End Date Hoang Castellanos, DEALER SALES REP [address] [place] [address] PCP - General Family Medicine 03/12/20 documented as of this encounter
--- OUTSIDE RECORDS SUMMARY | 2024-02-22 00:46 | XMS_ITS | Encounter Summary ---
Author Organization [facility] Address [facility] [place] [address] Care Team Providers Care Financial Services Technician Name Role Phone Hoang Castellanos APRN Primary Care Provider Encounter Details Date Type Department Care Team (Late st Contact Info) Description 04/28/2022 12:00 PM EDT Home Care Visit [facility] for Care [address] [place] [phone] Kimberly Austin, OLERICULTURIST LT STEAM TUNNEL FEEDER HOME VISIT Social History Tobacco Use Types [...] place to sleep or slept in a [place] [facility] [place] (including now)? No 03/23/2022 Sex and Gender Information Value Date Recorded Sex Assigned at Not on file Gender Identity Not on file Sexual Orientation Not on file documented as of this encounter Plan of Treatment Not on file documented as of this encounter Visit Diagnoses Not on filedocumented in this encounter Home Health Visit - Care Plan Visit Details Visit Type -LTC STEAM TUNNEL FEEDER Home Vis it Discipline -Home Health Aide Problems Problem Description Start Date Status Goals Interve ntions A Required Screenings Disciplines: [facility] 03/25/2022 Active 1 goal linked to scheduled/documente d intervention 1 goal intervention scheduled/documente d in this visit Other Disciplines: [facility] 03/25/2022 Active 1 goal linked to scheduled/documente d intervention 1 goal intervention scheduled/documente d in this visit House Keeping Disciplines: [facility] 03/25/2022 Active 1 goal linked to scheduled/documente d intervention 9 goal interventions scheduled/documente d in this visit Personal Care Disciplines: [facility] 03/25/2022 Active 1 goal linked to [...] Completed documented in this encounter Care Teams Financial Services Technician Relationship Specialty Start Date End Date Hoang Castellanos, SCHEDULING ASSISTANT [address] [place] [address] PCP - General Family Medicine 03/12/20 documented as of this encounter
--- OUTSIDE RECORDS SUMMARY | 2024-02-22 00:46 | XMS_ITS | Encounter Summary ---
Author Organization [facility] [place] [address] Care Team Providers Care River Tester Name Role Phone Hoang Castellanos APRN Primary Care Provider Encounter Details Date Type Department Care Team (Latest Contact Info) Description 03/31/2022 9:15 AM EDT Laboratory Appointment Laboratory at [facility] [place] [address] S/P gastric bypass; Disorder of iron metabolism; Post-resection malabsorption; Encounter for long-term (current) use of other medications; Explosive personality disorder; Vitamin D deficiency; History of diabetes mellitus, type II Social History Tobacco Use Types Packs/Day Years [...] Diagnosis Comments HC PARATHYROID HORMONE(PTH INTACT Routine 03/31/2022 9:29 AM EDT S/P gastric bypass Disorder of iron metabolism Post-resection malabsorption CMP W/FASTING GLUCOSE Routine 03/31/2022 9:29 AM EDT Encounter for long-term (current) use of other medications Explosive personality disorder HC HEMOGRAM Routine 03/31/2022 9:29 AM EDT S/P gastric bypass Disorder of iron metabolism Post-resection malabsorption DIFFERENTIAL, AUTOMATED Routine 03/31/2022 9:29 AM EDT Encounter for long-term (current) use of other medications Explosive personality disorder HC PCH THIAMIN LVL(VITAMIN B1) -PERALTA Routine 03/31/2022 9:29 AM EDT S/P gastric bypass Disorder of iron metabolism Post-resection malabsorption HC IRON BINDING CAPACITY Routine 03/31/2022 9:29 AM EDT S/P gastric bypass Disorder of iron metabolism Post-resection malabsorption HC VITAMIN D TOTAL-25 HYDROXY Routine 03/31/2022 9:29 AM EDT Vitamin D deficiency CBC (WITH DIFF) Routine 03/31/2022 9:29 AM EDT Encounter for long-term (current) use of other medications Explosive personality disorder HC THYROID STIMULATING HORMONE, SERUM Routine 03/31/2022 9:29 AM EDT Encounter for long-term (current) use of other medications Explosive personality disorder HC HEMOGLOBIN A1C Routine 03/31/2022 9:2 9 AM EDT History of diabetes mellitus, type II HC FOLATE, SERUM Routine 03/31/2022 9:29 AM EDT S/P gastric bypass Disorder of iron metabolism Post-resection malabsorption HC FERRITIN, SERUM Routine 03/31/2022 9: 29 AM EDT S/P gastric bypass Disorder of iron metabolism Post-resection malabsorption HC VITAMIN B12 SERUM Routine 03/31/2022 9:29 AM EDT S/P gastric bypass Disorder of iron metabolism Post-resection malabsorption LIPID PANEL (REFLEX DIRECT LDL) Routine 03/31/2022 9:29 AM EDT Encounter for long-term (current) use of other medications Explosive personality disorder documented in this encounter Results * (ABNORMAL) Differential, Automated (03/31/2022 9:29 AM EDT) Neutrophils % 72.3 % [facility] Neutr Abs (ANC) 7.72(H) 1.70 - 6.10 x10(3)/mc L [facility] Lymphocytes % 19.9 % [facility] Lymphocytes Abs 2.1 0.9 - 3.2 x10(3)/mc L [facility] Monocytes % 7.0 % [facility] Monocyte Abs 0.8 0.3 - 0.9 x10(3)/mc L [facility] Eosinophils % 0.3 % [facility] Eosinophils Abs 0.0 0.0 - 0.4 x10(3)/mc L [facility] Basophils % 0.3 % [facility] Basophils Abs 0.0 0.0 - 0.1 x10(3)/mc L [facility] Immature Gran % 0.20 % [facility] Comment: Immature granulocytes(IG's)percentage and absolute count will include metamyelocytes, myelocytes, and promyelocytes. Blood smears from CBCs yielding IG's will be scanned manually for concordance. If this scan disagrees with the automated IG or if promyelocytes are noted, a manual differential will be performed. Fartun Gran Abs 0.02 0.00 - 0.04 x10(3)/mc L [facility] Blood 03/31/2022 9:29 AM EDT 03/31/2022 11:41 AM EDT Narrative Resulting Agency Comment Spec In Lab Sophie Mejia MD HEMATOLOGY ORDERABLE S Performing Organization Address City/[facility]/ZIP Co de Phone Number LABORATORY [address] [place] [address] * (ABNORMAL) Hemoglobin A1c (03/31/2022 9:29 AM EDT) Hemoglobin A1C 6.0(H) 4.3 - 5.6 % [facility] Est Avg Gluc 126 mg/dL [facility] Blood 03/31/2022 9:29 AM EDT 03/31/2022 11:41 AM EDT Narrative Resulting Agency Comment Spec In Lab Hoang Castellanos APRN CHEMISTRY ORDERABLES [facility]AT[facility] [address] [place] [address] * Vitamin D, 25-Hydroxy (03/31/2022 9:29 AM EDT) 25-OH Vit D Total 54 21 - 100 ng/mL [facility] 25-OH Vit D Interp Sufficient [facility] Blood 03/31/2022 9:29 AM EDT 03/31/2022 5:10 PM EDT Narrative Resulting Agency Comment Spec In Lab Hoang Castellanos PARKING LOT ATTENDANT CHEMISTRY ORDERABLES [facility] [place] [address] * (ABNORMAL) CMP w/fasting Glucose (03/31/2022 9:29 AM EDT) Glucose Fasting 99 65 - 99 mg/dL [facility] Comment: ?Fasting* Glucose Interpretive Criteria Normal [...] of Diabetes Mellitus, Position Statement from the [place] [employer]. ??Diabetes Care, Volume 33, Supplement 1, Jul 2009 BUN 18 8 - 18 mg/dL [facility] Creatinine 0.72 0.70 - 1.20 mg/dL [facility] Sodium 143 135 - 145 mmol/L [facility] Potassium 4.2 3.5 - 5.0 mmol/L [facility] Comment: Please note: ??Patients with WBC >100,000 may have falsely elevated Potassium levels. ??For accurate Potassium quantification in these patients send serum separator tube (gold top) for subsequent determinations. ??Contact the Clinical Chemistry Laboratory if there are any questions. Chloride 104 98 - 107 mmol/L [facility] CO2 28 22 - 31 mmol/L [facility] Anion Gap 11 5 - 15 mmol/L [facility] Calcium 9.7 8.5 - 10.5 mg/dL [facility] Total Protein 6.9 6.1 - 8.0 g/dL [facility] Albumin 4.0 3.2 - 5.2 g/dL [...] In Lab Sophie Mejia MD CHEMISTRY ORDERABLES LABORATORY [address] [place] [address] * Lipid Panel (Reflex Direct LDL) (03/31/2022 9:29 AM EDT) Chol, Total 103 mg/dL [facility] Comment: Lower Risk: <200 mg/dL Average Risk: 200-239 mg/dL Higher Risk: >oh=520 mg/dL Triglycerides 111 mg/dL [facility] Comment: Average Risk/Lower Risk: <150 mg/dL Borderline High Risk: 150-199 mg/dL High Risk: 200-499 mg/dL Very High Risk: >jk=443 mg/dL HDL 47 mg/dL [facility] Comment: Males: ?? Higher Risk: <40 mg/dL Females: ?? Higher Risk: <50 mg/dL LDL Cholesterol 34 mg/dL [facility] Comment: Lowest Risk: <100 mg/dL Lower Risk: 100-129 mg/dL Borderline High Risk: 130-159 mg/dL High Risk: 160-189 mg/dL Very High Risk: >sv=010 mg/dL Chol/HDL Ratio 2.2 ratio LAB[facility]ORY Lipid Interpretation See Note [facility]ORY Comment: Lipid management should be guided by a patient? s ASCVD risk, goals and preferences. ACC/AHA Guidelines recommend high intensity statin if clinical ASCVD or LDL greater than or equal to 190 mg/dL. http://[employer]com/UTD-EHI-Kyqtkbufd Adults aged 40-75 with LDL 70-189 mg/dL should have their 10 year ASCVD risk estimated with the ACC/AHA ASCVD risk plasterer spray gun http://tools.acc.org/PIDVY-Xwkm-Xkbuiprzc/ Statin should be discussed if risk greater [...] In Lab Sophie Mejia MD CHEMISTRY ORDERABLES LABORATORY [address] [place] [address] * TSH (03/31/2022 9:29 AM EDT) [facility] TSH 2.42 0.27 - 4.20 mcIU/mL [facility] Comment: Reference Interval (mcIU/mL): Females: ??First Trimester: 0.23-3.88 ??Second Trimester: 0.22-3.90 ??Third Trimester: 0.44-4.66 Blood 03/31/2022 9:29 AM EDT 03/31/2022 11:41 AM EDT Narrative Resulting Agency Comment Spec In Lab Sophie Mejia MD CHEMISTRY ORDERABLES Performing Organization Address [facility] Co de Phone Number [facility] [address] [place] [address] * (ABNORMAL) Ferritin (03/31/2022 9:29 AM EDT) [facility] Ferritin 17(L) 30 - 400 ng/mL [facility] Comment: Pediatric reference ranges not verified at [facility], interpret with caution. Reference ranges for females greater than 50 years of age approach values for men, i.e., 30-400 ng/mL. Blood 03/31/2022 9:29 AM EDT 03/31/2022 11:41 AM EDT Narrative Resulting Agency Comment Spec In Lab Priya Charles APRN CHEMISTRY ORDERA BLES Performing Organization Address [facility] Co de Phone Number [facility] [address] [place] [address] * Folate, serum (03/31/2022 9:29 AM EDT) [facility] Folate Lvl 7.5 4.8 - 24.2 ng/mL [facility] Blood 03/31/2022 9:29 AM EDT 03/31/2022 5:10 PM EDT Narrative Resulting Agency Comment Spec In Lab Priya Charles APRN CHEMISTRY ORDERA BLES Performing Organization Address City/[facility]/ZIP Co de Phone Number [facility] [place] [address] * (ABNORMAL) Hemogram (03/31/2022 9:29 AM EDT) WBC 10.7(H) 4.0 - 9.5 x10(3)/mcL [facility] RBC 4.46 4.00 - 5.21 x10(6)/[facility] Hemoglobin 13.2 11.7 - 15.5 g/dL [facility] Hematocrit 42.9 35.7 - 45.8 % [facility] MCV 96.2(H) 82.6 - 94.4 fL [facility] MCH 29.6 27.1 - 32.0 pg [facility] MCHC 30.8(L) 31.7 - 35.0 g/dL [facility] Platelets 277 145 - 357 x10(3)/mcL [facility] RDWSD 53.0(H) 37.0 - 46.0 fL [facility] RDWCV 14.6(H) 11.5 - 14.1 % [facility] MPV 10.5 7.6 - 12.9 fL [facility] Blood 03/31/2022 9:29 AM EDT 03/31/2022 11:41 AM EDT Narrative Resulting Agency Comment Spec In Lab Priya Charles PARKING LOT ATTENDANT HEMATOLOGY ORDER MORENO [facility] [address] [place] [address] * (ABNORMAL) Iron and TIBC (03/31/2022 9:29 AM EDT) Iron 40 30 - 150 mcg/dL [facility] TIBC 381 250 - 450 mcg/dL [facility] Iron Saturation 10(L) 20 - 50 % [facility] Blood 03/31/2022 9:29 AM EDT 03/31/2022 11:41 AM EDT Narrative Resulting Agency Comment Spec In Lab Priya Ricoliher PARKING LOT ATTENDANT CHEMISTRY ORDERA BLES Performing Organization Address City/[facility]/ZIP Co de Phone Number [facility] [address] [place] [address] * PTH (03/31/2022 9:29 AM EDT) PTH 52 15 - 65 pg/mL [facility] Blood 03/31/2022 9:29 AM EDT 03/31/2022 4:41 PM EDT Narrative Resulting Agency Comment Spec In Lab Priya Charles APRN CHEMISTRY ORDERA BLES Performing Organization Address [facility] Co de Phone Number [facility] [place] [address] * Vitamin B12 (03/31/2022 9:29 AM EDT) Vitamin B-12 690 232 - 1,245 pg/mL [facility] Blood 03/31/2022 9:29 AM EDT 03/31/2022 5:10 PM EDT Narrative Resulting Agency Comment Spec In Lab Priya Charles APRN CHEMISTRY ORDERA BLES Performing Organization Address [facility] Co de Phone Number [facility] [place] [address] * Vitamin B1, whole blood (03/31/2022 9:29 AM EDT) Vit B1 Lvl WB 150 70 - 180 nmol/L [facility] Comment: ADDITIONAL INFORMATION This test was developed and its performance characteristics determined by [facility] in a manner consistent with CLIA requirements. This test has not been cleared or approved by the U.S. Food and Drug Administration. Test Performed by: [facility] [address] [place] [address] Manufacturing Shift Supervisor: Skinny Reyes M.D. Ph.D.; CLIA# [id number] Blood 03/31/2022 9:29 AM EDT 03/31/2022 4:59 PM EDT Narrative Resulting Agency Comment Spec In Lab Priya Charles APRN CHEMISTRY ORDERA BLES [facility] [address] [place] [address] documented in this encounter Visit Diagnoses Diagnosis S/P gastric bypass Bariatric surgery status Disorder of iron metabolism Other disorders of iron metabolism Post-resection malabsorption Other and unspecified postsurgical nonabsorption Encounter for long-term (current) use of other medications Explosive personality disorder Vitamin D deficiency Unspecified vitamin D deficiency History of diabetes mellitus, type II Personal history of other endocrine, metabolic, and immunity disorders documented in this encounter Care Teams River Tester Relationship Specialty Start Date End Date Hoang Castellanos APRN [address] [place] [address] PCP - General Family Medicine 03/12/20 documented as of this encounter
--- OUTSIDE RECORDS SUMMARY | 2024-02-22 00:46 | XMS_ITS | Encounter Summary ---
Author Organization [facility] Address [facility] [place] [address] Care Team Providers Care Clinical Haematologist Name Role Phone Hoang Castellanos APRN Primary Care Provider Reason for Referral * [facility] Skilled Nursing Care (Routine) - Closed Specialty Diagnoses / Procedures Referred By Contdavide t Referred To Contact Home Health Services Diagnoses Age-related physical debility R54 [facility] [address] [address] [facility] Choices For Care [address] [place] [phone] Referral ID Status Reason Start Date Expiration Date V isits Requested Visits Authorized [id number] Closed Consult, Test & Treat 02/08/2022 02/08/[phone] Encounter Details Date Type Department Care Team (Late st Contact Info) Description 02/08/2022 Transcribe Orders eD Incoming Referrals [phone] [facility] [address] [address] Social History Tobacco Use Types Packs/Day Years [...] slept in a assisted (including now)? No 12/01/2021 Sex and Gender Information Value Date Recorded Sex Assigned at Not on file Gender Identity Not on file Sexual Orientation Not on file documented as of this encounter Plan of Treatment Scheduled Referrals Name Type Priority Associated Diagnoses Orde r Schedule Amb Referral to [facility] Skilled Nursing Care Outpatient Referral Routine Ordered: 02/08/2022 documented as of this encounter Visit Diagnoses Not on filedocumented in this encounter Care Teams Clinical Haematologist Relationship Specialty Start Date End Date Hoang Castellanos, PACK WORKER SUPERVISOR [address] [place] [address] PCP - General Family Medicine 03/12/20 documented as of this encounter
--- OUTSIDE RECORDS SUMMARY | 2024-02-22 00:46 | XMS_ITS | Encounter Summary ---
Author Organization [facility] Address [facility] [place] [address] Care Team Providers Care Operator Electronic Warfare Name Role Phone Hoang Castellanos APRN Primary Care Provider Encounter Details Date Type Department Care Team (Late st Contact Info) Description 04/01/2022 8:00 AM EDT Home Care Visit [facility] for Care [address] [place] [phone] Kimberly Austin, SCREEN PRINTING PASTER LT UX DESIGN LEAD HOME VISIT Social History Tobacco Use Types [...] Care Plan Visit Details Visit Type -LTC UX DESIGN LEAD Home Vis it Discipline -Home Health Aide Problems Problem Description Start Date Status Goals Interve ntions A Required Screenings Disciplines: [facility] 03/25/2022 Active 1 goal linked to scheduled/documente d intervention 1 goal intervention scheduled/documente d in this visit Other Disciplines: [facility] 03/25/2022 Active 1 goal linked to scheduled/documente d intervention 1 goal intervention scheduled/documente d in this visit House Keeping Disciplines: [facility] 03/25/2022 Active 1 goal linked to scheduled/documente d intervention 9 goal interventions scheduled/documente d in this visit Personal Care Disciplines: [facility] 03/25/2022 Active 1 goal linked to [...] refused documented in this encounter Care Teams Operator Electronic Warfare Relationship Specialty Start Date End Date Hoang Castellanos, CONVERTIBLE POWER SHOVEL OPERATOR [address] [place] [address] PCP - General Family Medicine 03/12/20 documented as of this encounter
--- OUTSIDE RECORDS SUMMARY | 2024-02-22 00:46 | XMS_ITS | Encounter Summary ---
Author Organization [facility] Address [facility] [place] [address] Care Team Providers Care Resolution Rep Name Role Phone Hoang aCstellanos APRN Primary Care Provider Encounter Details Date Type Department Care Team (Late st Contact Info) Description 03/31/2022 1:00 PM EDT Home Care Visit [facility] for Care [address] [place] [phone] Kimberly Austin, VICE SQUAD POLICE OFFICER LT DRY PRESS OPERATOR HOME VISIT Social History Tobacco Use [...] Care Plan Visit Details Visit Type -LTC DRY PRESS OPERATOR Home Vis it Discipline -Home Health Aide Problems Problem Description Start Date Status Goals Interve ntions A Required Screenings Disciplines: [facility] 03/25/2022 Active 1 goal linked to scheduled/documente d intervention 1 goal intervention scheduled/documente d in this visit Other Disciplines: [facility] 03/25/2022 Active 1 goal linked to scheduled/documente d intervention 1 goal intervention scheduled/documente d in this visit House Keeping Disciplines: [facility] 03/25/2022 Active 1 goal linked to scheduled/documente d intervention 9 goal interventions scheduled/documente d in this visit Personal Care Disciplines: [facility] 03/25/2022 Active 1 goal linked [...] Completed documented in this encounter Care Teams Resolution Rep Relationship Specialty Start Date End Date Hoang Castellanos, LIVE IN COMPANION [address] [place] [address] PCP - General Family Medicine 03/12/20 documented as of this encounter
--- OUTSIDE RECORDS SUMMARY | 2024-02-22 00:46 | XMS_ITS | Encounter Summary ---
Author Organization [facility] [place] [address] Care Team Providers Care Associate Material Handler Name Role Phone Hoang Castellanos APRN Primary Care Provider Reason for Referral * Surgical (Routine) - Closed Specialty Diagnoses / Procedures Referred By Vanita dimas Referred To Contact Gastroenterology Diagnoses Colon cancer screening screen Procedures PRO COLONOSCOPY, DIAGNOSTIC PRO ANESTH, LWR INTESTINE, SCREENING COLONOSCOPY colo Hoang Castellanos APRN [address] [place] [address] [facility] End[facility] [address] [place] [address] Referral ID Status Reason Start Date Expiration Date V isits Requested Visits Authorized [id number] Closed Test Only 03/23/2022 03/23/2023 6 6 * Consultation (Routine) - Specialty Diagnoses / Procedures Referred By Vanita dimas Referred To Contact Ophthalmology Diagnoses Cataract of right eye, unspecified cataract type Hoang Castellanos APRN [address] [place] [address] Ruby Calderon, OD [facility] [place] [address] Referral ID Status Reason Start Date Expiration Date V isits Requested Visits Authorized [id number] Consult, Test & Treat 03/23/2022 03/23/2023 6 6 Encounter Details Date Type Department Care Team (Late st Contact Info) Description 03/23/2022 9:00 AM EDT Office Visit Primary Care at [address] [place] [address] Hoang Castellanos, FATBACK TRIMMER [address] [place] [address] Annual physical exam; Depression, unspecified depression type; Cataract of right eye, unspecified cataract type; Health care maintenance; History of diabetes mellitus, type II; Vitamin D deficiency; Cervical spinal stenosis; Right ear impacted cerumen; Colon cancer screening Social History Tobacco Use Types Packs/Day Years [...] Sign Reading Time Taken Comments Blood Pressure 116/72 03/23/2022 9:12 AM EDT Pulse 60 03/23/2022 9:12 AM EDT Temperature - - Respiratory Rate - - Oxygen Saturation 95% 03/23/2022 9:12 AM EDT Inhaled Oxygen Concentration - - Weight 102.6 kg (226 lb 3.2 oz) 03/23/2022 9:12 AM EDT Height 157.5 cm (5' 2) 03/23/2022 9:12 AM EDT Body Mass Index 41.37 03/23/2022 9:12 AM EDT documented in this encounter Progress Notes * Hoang Castellanos, FATBACK TRIMMER - 03/23/2022 9:00 AM EDT Subjective: HPI: Jeannie Rico is a 61 y.o. female presenting to the [facility] Primary Care Clinic for an annual chronicdisease review. 1. Depression, unspecified depression type A lot of anxiety and depression She has an appt w Psychiatry on 04/01 Tried viibryd/trintellix/abilify but did not tolerate d/t side effects States she should not be taking Vraylar 2. Cataract of right eye, unspecified cataract type Referral to Ophthalmology at [facility] Evaluated by Jasmeet Garica at [facility] Right eye completely blind d/t cataract Concerns Today: 1. Swelling in feet Has zipper compression stockings but they are the wrong size 2. Constipation Painful BMs Going 2-3 times per week, or some medications cause diarrhea 3. Using MJ for pain and PTSD every day Chronic pain persists in neck/pain Right arm tingling and weakness Right leg swelling, weakness Using walker at home WC at home, buggy at home No falls at home Awaiting assisted living voltaren gel is helping Lifestyle Diet: Not so healthy Exercise: no regular exercise never Sleep: sleeping poorly Preventative Immunizations Due: Health Maintenance Due Topic ??? Covid-19 Vaccine (1) ??? Influenza (Flu) vaccine (1 of 1 - Influenza standard series) Completed COVID vaccine and booster Labs: Lab Results Component Value Date CHLPL 114 12/27/2019 HDL 38 12/27/2019 CHOLHDL 3.0 12/27/2019 TRIG 102 12/27/2019 LDLCHOL 56 12/27/2019 Lab Results Component Value Date HA1C 5.6 2021 GLUCOSE 118 10/31/2021 Recent Labs 10/31/21 1221 10/31/21 0814 08/07/21 1100 NA 134* -- 138 K 4.7 -- 4.4 CO2 28 -- 28 ANIONGAP 8 -- 10 BUN 12 -- 19* CREATININE 0.74 -- 0.91 CALCIUM 9.0 -- 10.1 WBC -- 10.6* 6.8 HGB -- 13.0 14.7 HCT -- 40.9 45.7 MCV -- 96.0* 94.2 PLATELET -- 210 215 No results for input(s): HQBXAECT64, SFOLATE, BQDO0GE, VITAMINB6, 25OHVITD, NUVA10UB, VITAMIND, VITAMINA, VITAMINE, IRON, TRANSFERRIN, IRONSAT, FERRITIN in the last 7068 hours. Colonoscopy: Declines colonoscopy Skin concerns: Denies any changing moles, spot or skin lesions. Advance Directives: Y has advance directives and a copy is on file. Mammogram: Last mammogram: 05/26/2021 Last mammogram was 2020 Bone Density Scan: has osteoporosis, postmenopausal and has had a Dexa scan in 05/26/2021 Lung cancer screening Does patient qualify for low-dose CT (age 50-80, 20+pack years, current smoker or quit within 15y)? Yes Geriatric Screens and Health Risk Assessment: Hearing Good Vision (date of last eye check) Needs referral Falls (# last six months) No Assistive Device Walker, wheel chair and buggy Urinary Incontinence No Fecal Incontinence No ADLs (bathing, dressing, transfers, Toileting, feeding) Yes, home health aid Driving No IADLs (transport, cooking, meds, Finances, phone, shopping, Housekeeping) Home health aid Cognitive Screen: Mini-Cog 5/5 PHQ-9 QUESTIONNAIRE (AMB) 03/23/2022 PHQ - 9 Score (Clinic) - PHQ - 9 Score (Patient) 14 (Moderate Depression) Little interest or pleasure (Clinic) - Little interest or pleasure (Patient) More than half the days Down, depressed, hopeless (Clinic) - Down, depressed, hopeless (Patient) More than half the days Trouble sleeping (Patient) More than half the days Tired or no energy (Patient) More than half the days Poor appetite or overeating (Patient) More than half the days Feeling like a failure (Patient) More than half the days Trouble concentrating (Patient) More than half the days Moving or speaking slowly (Patient) Not at all Would be better off (Patient) Not at all PHQ-9 QUESTIONNAIRE SCORE ONLY (AMB) 03/23/2022 PHQ - 9 Score (Patient) 14 (Moderate Depression) Some recent data might be hidden Current Outpatient Medications Medication Sig ??? Spiriva Respimat 2.5 mcg/actuation Mist INHALE TWO (2) PUFFS INTO THE LUNGS NIGHTLY ??? cyanocobalamin, Vitamin B-12, (Vitamin B-12) 1,000 mcg Tablet TAKE ONE (1) TABLET BY MOUTH ONCEWEEKLY (PM) ??? isosorbide mononitrate CR (Imdur) 30 mg Tablet Sustained Release 24 hr Take 1 tablet by mouth daily. ??? Miconazole Powder [address] [facility]Non-Drug; Combo Route) route 2 times daily. ??? nitroGLYcerin (Nitrostat) 0.4 mg Tablet, Sublingual Place 1 tablet under the tongue every 5 minutes as needed for Chest pain. ??? albuteroL (Ventolin HFA) 90 mcg/actuation HFA Aerosol Inhaler INHALE 1 TO 2 PUFFS EVERY SIX HOURS NEEDED *CALL TO REFILL* ??? diclofenac (Voltaren) 1 % Gel Apply 2-4g daily. ??? Lactobacillus acidophilus 500 million cell Capsule Take 2 capsules by mouth 2 times daily. ??? fluticasone propion-salmeteroL (ADVAIR) 500-50 mcg/dose Disk with Device Inhale 1 puff into thelungs every 12 hours. ??? lidocaine (Lidoderm) 5% Adhesive Patch, Medicated Place 2 patches onto affected area for 12 hours then remove for 12 hours ??? tiZANidine (Zanaflex) 4 mg Tablet Take 1 tablet by mouth every 6 hours as needed. ??? polyethylene glycoL (Miralax) 17 gram Powder in Packet Take 17 g by mouth daily as needed. ??? senna-docusate (Pericolace) 8.6-50 mg Tablet Take 2 tablets by mouth 2 times daily. ??? acetaminophen (Tylenol) 500 mg Tablet Take 2 tablets by mouth every 6 hours. ??? aspirin EC 81 mg Tablet, Delayed Release (E.C.) Take 1 tablet by mouth daily. ??? ferrous sulfate (FeroSuL) 325 mg (65 mg iron) Tablet Take 1 tablet by mouth three times a week. ??? prazosin (Minipress) 2 mg Capsule Take 3 capsules by mouth nightly. ??? atorvastatin (Lipitor) 40 mg Tablet TAKE ONE (1) TABLET BY MOUTH EVERY DAY ??? omeprazole (PriLOSEC) 20 mg Capsule, Delayed Release(E.C.) TAKE ONE (1) CAPSULE BY MOUTH TWICE A DAY 30 MIN BEFORE BREKAFAST AND IN THE EVENING ??? cholecalciferol, Vitamin D3, (Vitamin D3) 1,000 unit Tablet Take 3 tabs daily ??? calcium citrate (Calcitrate) 200 mg (950 mg) Tablet Take 2 tabs three times daily ??? lamoTRIgine (LaMICtal) 200 mg Tablet TAKE ONE (1) TABLET BY MOUTH EVERY DAY ??? levothyroxine (Synthroid) 50 mcg Tablet TAKE ONE (1) TABLET BY MOUTH EVERY DAY ??? clonazePAM (KlonoPIN) 0.5 mg Tablet Take 0.5 mg by mouth daily as needed. ??? Miscellaneous Medical Supply [facility] 1 walker on wheels with seat ??? sertraline (ZOLOFT) 100 mg Tablet Take 2 tablets by mouth 2 times daily. ??? multivitamin (THERAGRAN) Tablet Take 1 tablet by mouth daily. ??? MARIJUANA ORAL Take by mouth. ??? nicotine (Nicoderm CQ) 14 mg/24 hr Patch 24 hr APPLY ONE (1) PATCH EVERY DAY Patient Active Problem List Diagnosis ??? Chronic obstructive pulmonary disease ??? Seizures ??? Coronary artery disease s/p PCI to prox and mid LAD [...] or scar. Left ventricular function is normal. ??? Post traumatic stress disorder (PTSD) ??? Asthma ??? Benign essential hypertension ??? History of diabetes mellitus, type II ??? Obstructive sleep apnea (adult) (pediatric) ??? Bipolar disorder ??? Hypothyroidism, acquired ??? Osteoporosis DEXA done at [facility] on 10/29/15: osteoporosis at the left hip T-3, and osteopenia of the spine T-1.9 ??? Arthrodesis present ??? Cervical spinal stenosis ??? Cataract of right eye ??? Right leg weakness ??? Chronic pain of right ankle ??? Bilateral leg edema ??? Vitamin D deficiency ??? Vitamin B12 deficiency ??? Bulimia ??? Constipation ??? Hyperlipidemia ??? Osteoarthrosis ??? Headache ??? Borderline personality disorder Per [facility] ??? GERD (gastroesophageal reflux disease) ??? Anxiety ??? Depression ??? Hidradenitis suppurativa ??? Chronic pain ??? Cervicalgia ??? Lumbago Past Medical History: Diagnosis Date ??? Depression ??? Diabetes mellitus ??? Hypertension ??? Obesity, S/P remote gastric bypass in 1995, prior VBG 05/09/2013 ??? Osteoporosis ??? Suicide attempt 08/02/2019 ??? Thyroid disease Past Surgical History: Procedure Laterality Date ??? CHOLECYSTECTOMY, OPEN 1991 ??? CORONARY ANGIOPLASTY WITH STENT PLACEMENT 2012 stent to LAD ??? CREATED BY INTERFACE a carotid bypass Procedure Date: Unknown ??? DENTAL SURGERY 1998 complete dental extractions ??? GASTRIC BYPASS SURGERY 05/05/2000 open, non-divided. Dr Trejo ??? HYSTERECTOMY, TOTAL ABDOMINAL 1985 ??? LIPECTOMY 2001 ??? PRO ARTHRODESIS, POST/POSTEROLAT TQ, SNGLE INTERSPACE; CERVICAL BELOW C2 SEGMNT N/A 10/30/2021 @ARTHRODESIS, POSTERIOR CERVICAL SPINE (WRVU 17.4) performed by Campos Puente MD at [facility] MAIN OR ??? PRO DUDLEY W/O FACETEC FORAMOT/DSKC 07/26 VRT SEG, CERVICAL N/A 10/30/2021 LAMINECTOMY, CX W/EXPLOR , W/O FACETECTOMY, 1 OR 2 SEGMENTS (WRVU 17.61) performed by Campos Puente MD at [facility] MAIN OR ??? PRO POSTERIOR SEGMENTAL INSTRUMENTATION 3-6 VRT SEG N/A 10/30/2021 POST SPINAL INSTRUMENTATION, 3-6 VERTEBRA, NON SEGMENTAL (WRVU 12.56) performed by Campos Puente MD at [facility] MAIN OR ??? PRO UPPER GI ENDOSCOPY, BIOPSY N/A 12/03/2015 EGD WITH BIOPSY performed by Ken Sanders MD at [facility] ENDOSCOPY ??? PRO UPPER GI ENDOSCOPY, BIOPSY N/A 09/19/2018 UPPER GASTROINTESTINAL ENDOSCOPY,WITH BIOPSY SINGLE OR MULTIPLE (WRVU 2.49) performed by Tyron Mercado MD at [facility] ENDOSCOPY ??? TONSILLECTOMY ??? UPPER GI ENDOSCOPY, EXAM 12/04/2010 UPPER GI ENDOSCOPY performed by DEE WRIGHT at [facility] ENDOSCOPY Family History Problem (# of Occurrences) Relation (Name,Age of Onset) Anxiety Disorder (1) Mother Cervical Cancer (1) Sister Depression (2) Mother, Father Heart Disease (5) Mother: Congestive Heart Failure, Father, Maternal Grandmother, Maternal Grandfather, Paternal Grandmother Hypertension (2) Mother, Father Leukemia (1) Other (Uncle) Lung Cancer (1) Mother Multiple Sclerosis (1) Mother Obesity (1) Father Other (1) Sister (43): Breast Neoplasm, Benign Type 2 Diabetes (2) Father, Maternal Grandfather Negative family history of: Breast Cancer Allergies Allergen Reactions ??? Morphine Shortness Of Breath ??? Sumatriptan Hives Other reaction(s): Hives and Rash (Urticaria) ??? Oxycodone Other (See Comments) drunk feeling, dizzy ??? Oxycodone-Acetaminophen Other (See Comments) dizziness, feels drunk Other reaction(s): Unknown ??? Chantix [Varenicline] psychotic ??? Imitrex [Sumatriptan Succinate] Hives ??? Prednisone Other reaction(s): aggitation Social History Tobacco Use ??? Smoking status: Current Every Day Smoker Types: Cigarettes Last attempt to quit: 07/25/2021 Years since quittin.6 ??? Smokeless tobacco: Never Used ??? Tobacco comment: smoking 3 cigarettes some days Substance Use Topics ??? Alcohol use: No Comment: not drank in 24 years Social History Social History Narrative Living w , Brandon. ROS: Review of Systems REVIEW OF SYSTEMS 03/23/2022 Constitutional Weakness, Fatigue, lack of energy, Pain Ear / nose / throat / mouth Dry mouth, Difficulty swallowing Eyes Blurry vision, Dry eyes Respiratory Wheezing, Cough, Thick mucous or spit (Sputum or Phlegm) Cardiovascular Swelling of legs Gastrointestinal Trouble swallowing, Constipation, Diarrhea, Appetite problems, Abdominal pain Skin, hair Itching Musculoskeletal Joint stiffness, Back pain, Joint pain, Muscle stiffness, Reduced range of motion, Unable to walk/difficulty walking Neurological Balance difficulty, dizziness, Headaches, Numbness, tingling Hematologic / Lymphatic None of the above Genitourinary None of the above Objective: VS: BP 116/72 (BP Location (NBP): Left arm, Patient Position: Sitting, BP Cuff Sizes: Adult (25-34 cm)) Pulse 60 Ht 157.5 cm (5' 2) Wt 102.6 kg (226 lb 3.2 oz) LMP (LMP Unknown) SpO2 95% BMI 41.37 kg/m?? BMI: Body mass index is 41.37 kg/m??. Physical Exam Vitals reviewed. Constitutional: General: She is awake. Appearance: Normal appearance. She is well-developed and well-groomed. She is obese. HENT: Head: Normocephalic and atraumatic. Right Ear: Hearing, tympanic membrane and ear canal normal. Left Ear: Hearing, tympanic membrane and ear canal normal. Nose: Nose normal. Mouth/Throat: Lips: [place]. Mouth: Mucous membranes are moist. Pharynx: Oropharynx is clear. Uvula midline. Eyes: General: Lids are normal. Pupils: Pupils are equal, round, and reactive to light. Neck: Thyroid: No thyroid mass or thyromegaly. Cardiovascular: Rate and Rhythm: Normal rate and regular rhythm. Pulses: Normal pulses. Radial pulses are 2+ on the right side and 2+ on the left side. Dorsalis pedis pulses are 2+ on the right side and 2+ on the left side. Heart sounds: Normal heart sounds, S1 normal and S2 normal. Pulmonary: Effort: Pulmonary effort is normal. Breath sounds: Normal breath sounds. Abdominal: General: Bowel sounds are normal. Palpations: Abdomen is soft. Musculoskeletal: General: Normal range of motion. Cervical back: Normal range of motion. Right lower le+ Edema present. Left lower le+ Edema present. Lymphadenopathy: Cervical: No cervical adenopathy. Skin: General: Skin is warm and dry. Capillary Refill: Capillary refill takes less than 2 seconds. Neurological: General: No focal deficit present. Mental Status: She is alert, oriented to person, place, and time and easily aroused. Mental status is at baseline. Psychiatric: Attention and Perception: Attention normal. Mood and Affect: Mood normal. Speech: Speech normal. Behavior: Behavior normal. Behavior is cooperative. Thought Content: Thought content normal. Judgment: Judgment normal. Assessment and Plan: Diagnoses and all orders for this visit: Annual physical exam - Pneumococcal Conjugate 20-Valent (PCV20) Depression, unspecified depression type Cataract of right eye, unspecified cataract type - Referral to Ophthalmology Health care maintenance - Pneumococcal Conjugate 20-Valent (PCV20) History of diabetes mellitus, type II - Hemoglobin A1c; Future Vitamin D deficiency - Vitamin D, 25-Hydroxy; Future Cervical spinal stenosis Right ear impacted cerumen - Ear wax removal Colon cancer screening - REFERRAL TO COLONOSCOPY PROCEDURE Depression/PTSD managed by psychiatry at [facility]. Encouraged her to bring med list from pharmacy to each appt as psychiatry is working on medication adjustments and can be difficult to keep track of. Right eye cataract-referral to Ophthalmology Hx of DM-due for repeat A1c Encouraged compression stockings for bilateral LE edema. Normal LVEF on Echo 01/07/21. Likely r/t dependent position in WC often. Cervical spine stenosis s/p C5-6 PCDF 10/30/[address] Puente-chronic neck/back pain, using MJ daily for management. Certification of condition for therapeutic cannabis program completed. She agrees to colonoscopy w the right sedation. According to the automated reminder system in the medical record, the following health maintenance items are due: Health Maintenance Due Topic Date Due ??? Covid-19 Vaccine (1) Never done ??? Hepatitis C Screening Never done ??? HIV screen Never done ??? PAP Smear Never done ??? HPV test Never done ??? Breast Cancer Share Decision Needed Never done ??? Colonoscopy Never done ??? Influenza (Flu) vaccine (1 of 1 - Influenza standard series) 03/25/2022 FOLLOWUP: Return in about 1 year (around 03/23/2023) for In Person CDR. documented in this encounter Plan of Treatment Scheduled Referrals Name Type Priority Associated Diagnoses Order Schedule Referral to Ophthalmology Outpatient Referral Routine Cataract of right eye, unspecified cataract type Ordered: 03/23/2022 REFERRAL TO COLONOSCOPY PROCEDURE Outpatient Referral Routine Colon cancer screening Ordered: 03/23/2022 documented as of this encounter Procedures Procedure Name Priority Date/Time Associated Diagnosis Comments EAR WAX REMOVAL Routine 03/23/2022 Right ear impacted cerumen documented in this encounter Results * Vitamin D, 25-Hydroxy (03/31/2022 9:29 AM EDT) 25-OH Vit D Total 54 21 - 100 ng/mL [facility] 25-OH Vit D Interp Sufficient [facility] Blood 03/31/2022 9:29 AM EDT 03/31/2022 5:10 PM EDT Narrative Resulting Agency Comment Spec In Lab Hoang Castellanos APRN CHEMISTRY ORDERABLES [facility] [place] [address] * (ABNORMAL) Hemoglobin A1c (03/31/2022 9:29 AM EDT) Hemoglobin A1C 6.0(H) 4.3 - 5.6 % [facility] Est Avg Gluc 126 mg/dL [facility] Blood 03/31/2022 9:29 AM EDT 03/31/2022 11:41 AM EDT Narrative Resulting Agency Comment Spec In Lab Hoang Castellanos APRN CHEMISTRY ORDERABLES Performing Organization Address City/[facility]/ZIP Co de Phone Number [facility] [address] [place] [address] * Ear wax removal (03/23/2022) Narrative Heena Stapleton - 03/23/2022 R ear wax flushed and cleared. Hoang Castellanos APRN NURSING TREATMENT OR DERABLES - ONCE documented in this encounter Visit Diagnoses Diagnosis Annual physical exam Routine general medical examination at a health care facility Depression, unspecified depression type Cataract of right eye, unspecified cataract type Health care maintenance Unspecified general medical examination History of diabetes mellitus, type II Personal history of other endocrine, metabolic, and immunity disorders Vitamin D deficiency Unspecified vitamin D deficiency Cervical spinal stenosis Spinal stenosis in cervical region Right ear impacted cerumen Impacted cerumen Colon cancer screening Special screening for malignant neoplasms, colon documented in this encounter Care Teams Associate Material Handler Relationship Specialty Start Date End Date Hoang Castellanos APRN [address] [place] [address] PCP - General Family Medicine 03/12/20 documented as of this encounter
--- OUTSIDE RECORDS SUMMARY | 2024-02-22 00:46 | XMS_ITS | Encounter Summary ---
Author Organization [facility] Address [facility] [place] [address] Care Team Providers Care Counter Molder Name Role Phone Hoang Castellanos APRN Primary Care Provider Encounter Details Date Type Department Care Team (Late st Contact Info) Description 04/29/2022 12:00 PM EDT Home Care Visit [facility] [address] [place] [phone] Kimberly Austin, FLOOR INSTALLER LT [employer] HOME VISIT Social History Tobacco Use Types [...] Care Plan Visit Details Visit Type -LTC [employer] Home Vis it Discipline -Home Health Aide Problems Problem Description Start Date Status Goals Interve ntions A Required Screenings Disciplines: [facility] 03/25/2022 Active 1 goal linked to scheduled/documente d intervention 1 goal intervention scheduled/documente d in this visit Other Disciplines: [facility] 03/25/2022 Active 1 goal linked to scheduled/documente d intervention 1 goal intervention scheduled/documente d in this visit House Keeping Disciplines: [facility] 03/25/2022 Active 1 goal linked to scheduled/documente d intervention 9 goal interventions scheduled/documente d in this visit Personal Care Disciplines: [facility] 03/25/2022 Active 1 goal linked to [...] clean-up of patient's environment as directed Completed [employer] MOP Description: Mop Problem:House Keeping Goal:Aide to assist with clean-up of patient's environment as directed Scheduled with variance N/A STRAIGHTEN KITCHEN AREA Description: Straighten kitchen area Problem:House Keeping Goal:Aide to assist with clean-up of patient's environment as directed Scheduled with variance N/A VACUUM Description: Vacuum Problem:House Keeping Goal:Aide to assist with clean-up of patient's environment as directed Scheduled with variance N/A STRAIGHTEN IMMEDIATE CARE AREA Description: Straighten immediate [...] patient's environment as directed Scheduled with variance Environmental barriers Bombing house for bugs today LINEN CHANGE AND MAKE BED Description: Linen [...] aide as directed Scheduled with variance N/A documented in this encounter Care Teams Counter Molder Relationship Specialty Start Date End Date Hoang Castellanos, TELEVISION PROGRAM DIRECTOR [address] [place] [address] PCP - General Family Medicine 03/12/20 documented as of this encounter
--- OUTSIDE RECORDS SUMMARY | 2024-02-22 00:46 | XMS_ITS | Encounter Summary ---
Author Organization [facility] Address [facility] [place] [address] Care Team Providers Care Geoscience Technician Name Role Phone Hoang Castellanos APRN Primary Care Provider Encounter Details Date Type Department Care Team (Late st Contact Info) Description 04/30/2022 11:00 AM EDT Home Care Visit [facility] for Care [address] [place] [phone] Kimberly Austin, PLANT CHIEF LT FOOD PROCESSING CHEMIST HOME VISIT Social History Tobacco Use Types [...] Care Plan Visit Details Visit Type -LTC FOOD PROCESSING CHEMIST Home Vis it Discipline -Home Health Aide Problems Problem Description Start Date Status Goals Interve ntions A Required Screenings Disciplines: [facility] 03/25/2022 Active 1 goal linked to scheduled/documente d intervention 1 goal intervention scheduled/documente d in this visit Other Disciplines: [facility] 03/25/2022 Active 1 goal linked to scheduled/documente d intervention 1 goal intervention scheduled/documente d in this visit House Keeping Disciplines: [facility] 03/25/2022 Active 1 goal linked to scheduled/documente d intervention 9 goal interventions scheduled/documente d in this visit Personal Care Disciplines: [facility] 03/25/2022 Active 1 goal linked to scheduled/documente [...] N/A documented in this encounter Care Teams Geoscience Technician Relationship Specialty Start Date End Date Hoang Castellanos APRN [address] [place] [address] PCP - General Family Medicine 03/12/20 documented as of this encounter
--- OUTSIDE RECORDS SUMMARY | 2024-02-22 00:47 | XMS_ITS | Encounter Summary ---
Author Organization [facility] [place] [address] Care Team Providers Care Inside Trucker Name Role Phone Hoang Castellanos APRN Primary Care Provider Encounter Details Date Type Department Care Team (Late st Contact Info) Description 12/18/2021 10:00 AM EDT Home Care Visit [facility] [address] [place] [phone] Renetta Ta, OT OT HOME VISIT Social History Tobacco Use Types [...] place to sleep or slept in a skilled nursing (including now)? No 12/01/2021 Sex and Gender Information Value Date Recorded Sex Assigned at Not on file Gender Identity Not on file Sexual Orientation Not on file documented as of this encounter Last Filed Vital Signs Vital Sign Reading Time Taken Comments Blood Pressure 130/70 12/18/2021 9:30 AM EDT Pulse 90 12/18/2021 9:30 AM EDT Temperature 36.6 ??C (97.9 ??F) 12/18/2021 9:30 AM ED T Respiratory Rate 18 12/18/2021 9:30 AM EDT Oxygen Saturation 90% 12/18/2021 9:30 AM EDT Inhaled Oxygen Concentration - - Weight - - Height - - Body Mass Index - - documented in this encounter Miscellaneous Notes * Case Communication - Renetta Ta, OT - 12/18/2021 3:38 PM EDTPT PRESENTS TO SKILLED OT INTERVENTION TODAY WITH FOCUS ON ADL INCLUDING USE OF DME (TUB SHOWER BENCH) WITH CGA AND CUES FOR HAND PLACEMENT AND TRANSFER TECHNIQUES. PT ALSO WAS PROVIDED SKILLED ED ONUSE OF HAND HELD SHOWER HOSE AND LONG HANDLED EQUIPMENT INCLUDING USE OF LONG HANDLED SPONGE FOR CARMELITA CARE AND WASHING HER BACK. SHE REQ MIN A FOR BACK OF HER LEGS AND HER BACK BUT WAS ABLE TO COMPLETE CARMELITA CARE WITH CGA AND VERBAL CUES. SHE ALSO REQ MIN A FOR DRESSING AND USE OF IT SUPPORT ANALYST FOR UNDERWEAR. HER IS BACK AT THE HOSPITAL AND MADE COMMENTS TO THIS CERTIFIED PESTICIDE APPLICATOR THAT SHE IS WORRIED ABOUT HER SAFETY BEING HOME ALONE AND COOKING.FABIANA DUDLEY, FROM [facility] PCP OFFICE, CALLED DURING OT VISIT AND DISCUSSED WITH PT STRATEGIES TO INCREASE HER SAFETY IN THE HOME INCLUDING USE OF NIGHT LIGHTS, FLASHLIGHTS, CONTINUED USE OF WALKER AND CARRYING A PHONE, AND HAVING HER FRIEND FROM [place] COME TO CHECK ON HER DAILY, WELL OBTAINING FROZEN MEALS THAT ARE EASIER FOR PTTO COOK. PCP OFFICE AWARE OF OT'S SAFETY CONCERNS BROUGHT ABOUT VIA TELEPHONE MENTIONED ABOVE. PLAN FOR NEXT VISIT: SHOWER LEVEL BATHING AND HEP FOR UB * Home Health - Renetta Ta OT - 12/18/2021 11:06 AM EDT PT PRESENTS TO SKILLED OT INTERVENTION TODAY WITH FOCUS ON ADL INCLUDING USE OF DME (TUB SHOWER BENCH) WITH CGA AND CUES FOR HAND PLACEMENT AND TRANSFER TECHNIQUES. PT ALSO WAS PROVIDED SKILLED ED ONUSE OF HAND HELD SHOWER HOSE AND LONG HANDLED EQUIPMENT INCLUDING USE OF LONG HANDLED SPONGE FOR CARMELITA CARE AND WASHING HER BACK. SHE REQ MIN A FOR BACK OF HER LEGS AND HER BACK BUT WAS ABLE TO COMPLETE CARMELITA CARE WITH CGA AND VERBAL CUES. SHE ALSO REQ MIN A FOR DRESSING AND USE OF IT SUPPORT ANALYST FOR UNDERWEAR. HER IS BACK AT THE HOSPITAL AND MADE COMMENTS TO THIS CERTIFIED PESTICIDE APPLICATOR THAT SHE IS WORRIED ABOUT HER SAFETY BEING HOME ALONE AND COOKING. FABIANA DUDLEY, FROM [facility] PCP OFFICE, CALLED DURING OT VISIT AND DISCUSSED WITH PT STRATEGIES TO INCREASE HER SAFETY IN THE HOME INCLUDING USE OF NIGHT LIGHTS, FLASHLIGHTS, CONTINUED USE OF WALKER AND CARRYING A PHONE, AND HAVING HER FRIEND FROM [place] [address] COMET[place] CHECK ON HER DAILY, WELL OBTAINING FROZEN MEALS THAT ARE EASIER FOR PT TO COOK. PCP OFFICEAWARE OF OT'S SAFETY CONCERNS BROUGHT ABOUT VIA TELEPHONE MENTIONED ABOVE. PLAN FOR NEXT VISIT: S HOWER LEVEL BATHING AND HEP FOR UB documented in this encounter Plan of Treatment Not on file documented as of this encounter Visit Diagnoses Not on filedocumented in this encounter Home Health Visit - Care Plan Visit Details Visit Type -OT Home Visit Discipline -Occupational Therapy Problems Problem Description Start Date Status Goals Interve ntions Decreased ADLs Disciplines: OT Decreased independence in self-care including bathing, toileting, personal cares, ambulating, grooming, hygiene, dressing upper body, dressing lower body and meal preparation. 12/02/2021 Active 1 goal linked to scheduled/documen leela intervention 1 goal intervention scheduled/document ed in this visit Decreased IADLs Disciplines: OT Decreased independence in instrumental meal preparation, housekeeping, laundry and leisure 12/02/2021 Active 1 goal linked to scheduled/documen leela intervention 1 goal intervention scheduled/document ed in this visit Goals Goal Associated Problem Outcome Goal Met? Visit Notes Patient demonstrates increased functional mobility and/or endurance Description: - Improve bathing, toileting, personal cares, ambulating, grooming, hygiene, dressing upper body, dressing lower body and meal preparation to stand-by assist within 60 days. - Demonstrate safe use of adaptive equipment within 30 days. - Patient demonstrates energy conservation and breathing techniques within <2 weeks. - Demonstrate improved endurance for activities of daily living utilizing energy conservation and deep breathing techniques within 30 days. - Improve functional mobility with transfer and walker within 30 days. - Instruct/recommend low vision techniques and adaptations in activities of daily living within 60 days. - Patient demonstrates improved cognitive abilities problem solving and judgment for activities of daily living and instrumental activities of daily living within <2 weeks. - Demonstrate improved safety in home environment within 30 days. - Patient and Caregiver demonstrate ability to follow diagnosis and surgically related precautions within 30 days. Decreased ADLs No Patient improves functional mobility Description: - Improve instrumental activities of daily living and leisure to stand-by assist within 30 days. - Demonstrate safe use of adaptive equipment within 30 days. - Patient demonstrates energy conservation and breathing techniques within <2 weeks. - Demonstrate improved endurance for activities of daily living utilizing energy conservation and deep breathing techniques within <2 weeks. - Improve functional mobility with transfer and walker within 30 days. - Instruct/recommend low vision techniques and adaptations in activities of daily living within 30 days. - Patient demonstrates improved cognitive abilities attention and concentration, problem solving and judgment for activities of daily living and instrumental activities of daily living within 30 days. - Demonstrate improved safety in home environment within 30 days. - Patient and caregiver demonstrate ability to follow diagnosis and surgically related precautions within 30 days. Decreased IADLs No Interventions Intervention Associated Problem/Goal Status Variance Visit Notes ADLs Interventions Description: - Instruct in self-care including bathing, toileting, personal cares, ambulating, grooming, hygiene, dressing upper body, dressing lower body and meal preparation. - Instruct in use of adaptive equipment and environmental adaptations. - Activities of daily living mobility training with transfer and walker. - Low vision training and adaptations. - Instruct in cognitive strategies. - Assess and make recommendations for increased safety. - Instruct in energy conservation and breathing techniques. - Patient and Caregiver education. - Instruct patient in following surgically related precautions. Problem:Decreased ADLs Goal:Patient demonstrates increased functional mobility and/or endurance Completed Completed this visit: Instruct in self-care including bathing, toileting, personal cares, ambulating, grooming, hygiene, dressing upper body, dressing lower body and meal preparation, Instruct in use of adaptive equipment and environmental adaptations, Activities of daily living mobility training with transfer and walker, Assess and make recommendations for increased safety and Patient/Caregiver education IADLs Interventions Description: - Instruct in instrumental activities of daily living and leisure. - Instruct in use of adaptive equipment and environmental adaptations. - Activities of daily living mobility training with transfer and walker. - Low vision training and adaptations. - Instruct in cognitive strategies. - Assess and make recommendations for increased safety. - Instruct in energy conservation and breathing techniques. - Patient and caregiver education. - Instruct safe functional reaching Problem:Decreased IADLs Goal:Patient improves functional mobility Completed Completed this visit: Assess and make recommendations for increased safety, Instruct in energy conservation and breathing techniques, Patient and caregiver education and Instruct in instrumental activities of daily living documented in this encounter Care Teams Inside Trucker Relationship Specialty Start Date End Date Hoang Castellanos, COLOR ADVISER [address] [place] [address] PCP - General Family Medicine 03/12/20 documented as of this encounter
--- OUTSIDE RECORDS SUMMARY | 2024-02-22 00:47 | XMS_ITS | Encounter Summary ---
Author Organization [facility] Address [facility] [place] [address] Care Team Providers Care Orthopedic Physician Assistant Name Role Phone Hoang Castellanos APRN Primary Care Provider [phone] Encounter Details Date Type Department Care Team (Late st Contact Info) Description 01/11/2022 3:00 PM EDT Home Care Visit [facility] [address] [place] [phone] Raj Nowak, PT PT HOME VISIT Social History Tobacco Use Types [...] slept in a fci (including now)? No 12/01/2021 Sex and Gender Information Value Date Recorded Sex Assigned at Not on file Gender Identity Not on file Sexual Orientation Not on file documented as of this encounter Last Filed Vital Signs Vital Sign Reading Time Taken Comments Blood Pressure 140/80 01/11/2022 2:40 PM EDT Pulse 64 01/11/2022 2:40 PM EDT Temperature 37.1 ??C (98.8 ??F) 01/11/2022 2:40 PM ED T Respiratory Rate - - Oxygen Saturation 92% 01/11/2022 2:40 PM EDT Inhaled Oxygen Concentration - - Weight - - Height - - Body Mass Index - - documented in this encounter Miscellaneous Notes * Home Health - Raj Lr, PT - 01/11/2022 2:35 PM EDT PATIENT CONTINUES SKILLED HH PT FOCUSED ON IMPROVING GAIT/BALANCE, MOBILITY, POSTURE, AND OVERALL STRENGTH. PATIENT CONTINUES WITH GAIT TRAINING ON UNEVEN SURFACES USING FWW- SHE REQUIRES VC THROUGHOUT FOR UPRIGHT POSTURE TO REDUCE STRESS ON CERVICOTHORACIC SPINE. SHE IS ABLE TO AMBULATE UP/DOWN RAMP TO FRONTDOOR USING ONLY UNILATERAL RAILING IN LUE. SHE CONTINUES WITH PROGRESSIVE LE STRENGTHENING, AND INITIATES SEATED LAQ/HS CURL WITH THERABAND RESISTANCE. SHE TOLERATES WITH FATIGUE BUT NO ADVERSE EFFECTS. PATIENT EDUCATED THAT SHE IS NEARING APPROPRIATE TIME-FRAME FOR OPPT. HOWEVER, SHE DEMONSTRATES SOME APPREHENSION ABOUT GOING TO OPPT DUE TO FEAR OF FALLING OR INJURY. documented in this encounter Plan of Treatment Not on file documented as of this encounter Visit Diagnoses Not on filedocumented in this encounter Home Health Visit - Care Plan Visit Details Visit Type -PT Home Visit Discipline -Physical Therapy Problems Problem Description Start Date Status Goals Interve ntions Gait Deficit Disciplines: PT - Decreased ambulation requiring stand-by level of assist. - Decreased quality of gait with gait deviations and/or impaired postural alignment. 11/30/2021 Active 1 goal linked to scheduled/documen leela intervention 1 goal intervention scheduled/document ed in this visit Decreased Strength Disciplines: PT Decreased strength in lower extremities and upper extremities related to HISTORY OF CORD COMPRESSION. 11/30/2021 Active 1 goal linked to scheduled/documen leela intervention 1 goal intervention scheduled/document ed in this visit Home Exercise Program Disciplines: PT Requires instruction of home program for therapeutic exercise and functional mobility. 11/30/2021 Active 1 goal linked to scheduled/documen leela intervention 1 goal intervention scheduled/document ed in this visit Balance Deficit Disciplines: PT Impaired standing and dynamic balance with potential safety problems related to HISTORY OF CORD COMPRESSION, STRENGTH DEFICITS. 11/30/2021 Active 1 goal linked to scheduled/documen leela intervention 1 goal intervention scheduled/document ed in this visit Goals Goal Associated Problem Outcome Goal Met? Visit Notes Patient improves ambulation and quality of gait Description: - Improved household and outdoors ambulation as evidenced by ambulation with independent with device level of assist within 60 days. - Improved quality of gait as evidenced by reduced right foot drag in 60 days. - Patient will negotiate ramp, curb requiring independent with device level of assist with RW/FWW, within 60 days. Gait Deficit No Patient increases strength and/or functional mobility Description: - Demonstrate good follow-through with progressive program within 60 days. - Increased functional mobility as evidenced by improved transfers, bed mobility, gait within 60 days. Decreased Strength No Patient performs home exercise program Description: - Demonstrates good follow-through with progressive exercise and ambulation program within 60 days. - Patient will be able to demonstrate home program within 60 days. - Patient will be able to perform home program with independent with device level of assist in 60 days. Home Exercise Program No Patient improves balance and reduces fall frequency Description: - Improved balance for functional ambulation within 60 days. - Patient will implement fall risk strategies within 60 days. - Patient will report reduced fall/balance frequency within 60 days. - Improved standard balance testing score TO >19/28 Tinetti within 60 days. Balance Deficit No Interventions Intervention Associated Problem/Goal Status Variance Visit Notes Gait Deficit Description: Gait training Therapeutic exercise Therapeutic activities Balance training Problem:Gait Deficit Goal:Patient improves ambulation and quality of gait Completed Decreased Strength Description: - Therapeutic exercise. - Establish home exercise program. - Therapeutic Activities Problem:Decreased Strength Goal:Patient increases strength and/or functional mobility Completed Completed this visit: Therapeutic exercise and Modify home exercise program Home Exercise Program Description: - Establish home exercise program. - Instruct Patient and Caregiver in home exercise program. Problem:Home Exercise Program Goal:Patient performs home exercise program Completed Completed this visit: Upgrade home exercise program Balance Deficit Description: - Therapeutic exercise. - Establish or upgrade home program. - Implement balance training. - Refer to occupational therapist for evaluation and treatment. - Perform home safety assessment and give recommendations to Patient and Caregiver. - Instruct Patient and Caregiver to assist patient with fall prevention strategies, functional mobility and home exercise program. Problem:Balance Deficit Goal:Patient improves balance and reduces fall frequency Completed Completed this visit: Therapeutic exercise and Implement balance training documented in this encounter Care Teams Orthopedic Physician Assistant Relationship Specialty Start Date End Date Hoang Castellanos APRN [address] [place] [address] PCP - General Family Medicine 03/12/20 documented as of this encounter
--- OUTSIDE RECORDS SUMMARY | 2024-02-22 00:47 | XMS_ITS | Encounter Summary ---
Author Organization [facility] Address [facility] [place] [address] Care Team Providers Care Hydraulic Plumber Name Role Phone Hoang Castellanos APRN Primary Care Provider [phone] Encounter Details Date Type Department Care Team (Late st Contact Info) Description 01/08/2022 9:30 AM EDT Home Care Visit [facility] [address] [place] [phone] Renetta Ta, OT OT HOME VISIT [...] Sign Reading Time Taken Comments Blood Pressure 138/80 01/08/2022 10:16 AM EDT Pulse 56 01/08/2022 10:16 AM EDT Temperature 36.9 ??C (98.4 ??F) 01/08/2022 10:16 AM E DT Respiratory Rate 16 01/08/2022 10:16 AM EDT Oxygen Saturation 96% 01/08/2022 10:16 AM EDT Inhaled Oxygen Concentration - - Weight - - Height - - Body Mass Index - - documented in this encounter Miscellaneous Notes * Home Health - Renetta Ta, OT - 01/08/2022 10:14 AM EDT PT PARTICIPATED IN OT SESSION TODAY WITH FOCUS ON OT UE HEP WITH WILLIAM BANERJEE AND SHANE CALLEJAS WAS PRESENT FOR CAREGIVER ED WELL. PT IS PROGRESSING WELL WITH OT HEP AND NEEDED ONLY V. CUES ONLY FOR ACCURACY OF TECHNIQUE. OT ALSO PROVIDED SKILLED OT ED ON ADL ADAPTIVE/COMPENSATORY TECHNIQUES USING AEFOR BACK WASHING - PT AND CAREGIVER VERB. UNDERSTANDING OF TECHNIQUE. PLAN FOR NEXT SESSION: PROGRESS UE HEP USING RESISTANCE BAND TO ADDRESS IMPAIRED STRENGTH AND AROM OF BILATERAL UE. documented in this encounter Plan of Treatment [...] intervention scheduled/document ed in this visit Decreased Upper Extremity Function Disciplines: OT Decreased upper extremity function in bilateral upper extremity. 12/02/2021 Active 1 goal linked to scheduled/documen [...] within 30 days. Decreased ADLs No Patient demonstrates improved endurance for activities of daily living Description: - Increase functional use of right/left upper extremity for activities of daily living within 30 days. - Increase right/left upper extremity range of motion within 30 days. - Increase right/left upper extremity strength within 60 days.- Increase right/left upper extremity fine motor strength/coordination within 60 days. - Improve right/left side sensation within 30 days. - Patient and Caregiver demonstrates ability to follow diagnosis and surgically related precautions within 30 days. - Patient will have therapeutic home program in place within 30 days. - Decreased pain as evidenced by improved functional activity within 30 days. Decreased Upper Extremity Function No Patient improves functional mobility Description: - [...] mobility and/or endurance Completed Completed this visit: Assess and make recommendations for increased safety and Patient/Caregiver education Upper Extremity Description: - Instruct in range of motion exercises. - Instruct in therapeutic strengthening program. - Instruct in fine and gross motor coordination exercises. - Safety for decreased sensory - Measure edema and perform reduction techniques and education. - Measure and recommend for compression garments. - Instruct in home program. - Patient and caregiver education. - Instruct Patient and Caregiver in following surgically related precautions within 30 days. - Teach home safety to prevent falls. - Pain management and instruct on positioning of upper extremity Problem:Decreased Upper Extremity Function Goal:Patient demonstrates improved endurance for activities of daily living Completed Completed this visit: Instruct in range of motion exercises and flexibility, Instruct in therapeutic strengthening program, Instruct in home program and Patient and caregiver education IADLs Interventions Description: - Instruct in [...] improves functional mobility Completed Completed this visit: Instruct in instrumental activities of daily living and leisure, Instruct in use of adaptive equipment and environmental adaptations, Assess and make recommendations for increased safety and Patient and caregiver education documented in this encounter Care Teams Hydraulic Plumber Relationship Specialty Start Date End Date Hoang Castellanos, SAM [address] [place] [address] PCP - General Family Medicine 03/12/20 documented as of this encounter
--- OUTSIDE RECORDS SUMMARY | 2024-02-22 00:47 | XMS_ITS | Encounter Summary ---
Author Organization [facility] Address [facility] [place] [address] Care Team Providers Care Calciner Feeder Name Role Phone Hoang Castellanos APRN Primary Care Provider Encounter Details Date Type Department Care Team (Late st Contact Info) Description 12/16/2021 Home Care Visit [facility] [address] [place] [phone] Meena Greenwood, MANAGER RECOVERY CASE COMMUNICATION Social History Tobacco Use Types Packs/Day Years [...] in a senior living (including now)? No 12/01/2021 Sex and Gender Information Value Date Recorded Sex Assigned at Not on file Gender Identity Not on file Sexual Orientation Not on file documented as of this encounter Miscellaneous Notes * Case Communication - Meena Greenwood LPN - 12/16/2021 8:43 AM EDTPt thought her visit was supposed to be for . States her and her are cleaning the house and have things all over the place. Please move to . documented in this encounter Plan of Treatment Not on file documented as of this encounter Visit Diagnoses Not on filedocumented in this encounter Care Teams Calciner Feeder Relationship Specialty Start Date End Date Hoang Castellanos APRN [address] [place] [address] PCP - General Family Medicine 03/12/20 documented as of this encounter
--- OUTSIDE RECORDS SUMMARY | 2024-02-22 00:47 | XMS_ITS | Encounter Summary ---
Author Organization [facility] Address [facility] [place] [address] Care Team Providers Care Tape Calender Name Role Phone Hoang Castellanos APRN Primary Care Provider Encounter Details Date Type Department Care Team (Late st Contact Info) Description 12/17/2021 9:00 AM EDT Home Care Visit [facility] [address] [place] [phone] Bárbara Morfin, RN SN HOME VISIT Social History Tobacco Use Types [...] place to sleep or slept in a prison (including now)? No 12/01/2021 Sex and Gender Information Value Date Recorded Sex Assigned at Not on file Gender Identity Not on file Sexual Orientation Not on file documented as of this encounter Last Filed Vital Signs Vital Sign Reading Time Taken Comments Blood Pressure - - Pulse - - Temperature 36.3 ??C (97.3 ??F) 12/17/2021 11:32 AM E DT Respiratory Rate - - Oxygen Saturation - - Inhaled Oxygen Concentration - - Weight - - Height - - Body Mass Index - - documented in this encounter Miscellaneous Notes * Home Health - Bárbara Morfin RN - 12/17/2021 11:17 AM EDT Plan for next visit: CP assess, Oxygen safety, reconcile/add New medications that were not in home yet, FOUNTAIN VENDING MECHANIC check in, Hygiene GI/ care, Pain mgmt documented in this encounter Plan of Treatment Not on file documented as of this encounter Visit Diagnoses Not on filedocumented in this encounter Home Health Visit - Care Plan Visit Details Visit Type -SN Home Visit Discipline -Prison Problems Problem Description Start Date Status Goals Interventions Learning/Teaching Needs - Inhalation Treatments Disciplines: SN, COMPLETIONS ENGINEER Lack of knowledge in how to administer inhalant treatments and how to care for the equipment. 11/26/2021 Active 1 goal linked to scheduled/docume nted intervention 1 goal intervention scheduled/documen shabana in this visit Supervisory Visit Disciplines: DONALD BARRERA Supervision of the [facility]. 11/26/2021 Active 1 goal linked to scheduled/docume nted intervention 1 goal intervention scheduled/documen shabana in this visit Pain/Comfort Deficit Disciplines: DONALD BARRERA Pain/comfort deficit related to back and shoulders from cervical surgery. 11/26/2021 Active 1 goal linked to scheduled/docume nted intervention 1 goal intervention scheduled/documen shabana in this visit Edema Disciplines: All Disciplines Edema - Location: bilateral lower extremities - Amount: non-pitting with compression sock use 11/26/2021 Active 1 goal linked to scheduled/docume nted intervention 1 goal intervention scheduled/documen shabana in this visit Alteration in Integumentary Status - Other Disciplines: DONALD BARRERA Patient d/c from rehab with sutures remaining in skin 12/01/2021 Active - 1 problem intervention scheduled/documen shabana in this visit Chronic Obstructive Pulmonary Disease Disciplines: DONALD BARRERA, Physical Therapy, Occupational Therapy Care related to chronic obstructive pulmonary disease (includes asthma/bronchiti s/emphysema). 12/11/2021 Active 1 goal linked to scheduled/docume nted intervention 1 goal intervention scheduled/documen shabana in this visit Goals Goal Associated Problem Outcome Goal Met? Visit Notes Patient/caregiver demonstrates ability to administer inhalant medications and care for inhalant equipment Description: Pt will demonstrate the ability to administer inhalant medications and care for the equipment within end of certification period Learning/Teaching Needs - Inhalation Treatments No Supervisory visit will be completed as ordered Description: Perform supervisory visit at minimum every 16 days. Supervisory Visit No Patient reports that pain has been reduced or controlled through verbal or nonverbal means and that measures to promote comfort are effective Description: Patient will report that pain has been reduced or controlled through verbal or nonverbal means and that measures to promote comfort are effective withinend of certification period Pain/Comfort Deficit No Patient's edema is decreased or stabilized Description: Decrease or stabilization in amount of edema. Edema No Patient pulmonary care needs met without signs/symptoms of complications Description: Patient verbalizes comfort, ease of respiratory effort within 30 days. Chronic Obstructive Pulmonary Disease No Interventions Intervention Associated Problem/Goal Status Variance Visit Notes Instruct Oxygen Description: Instruct pt and cg in use of home oxygen therapy including precautions to avoid smoking, static electricity, pilot plant operator lights on gas stoves and water heaters, oil-based lubricants, and proper storage of portable tanks. Problem:Learning/Teach ing Needs - Inhalation Treatments Goal:Patient/caregiver demonstrates ability to administer inhalant medications and care for inhalant equipment Completed Patient instructed in the use of home oxygen therapy, safe/proper use of equipment, and precautions. Patient verbalizes understanding of disease process, causative factors, complication, and management related to use of oxygen. Pt will try to use oxygen one night this week and assess symptoms. Supervisory Visit Description: Perform supervisory visit of the FOUNTAIN VENDING MECHANIC at minimum every 16 days. Perform supervisory visit of the PT Kardex Clerk at minimum every 5th visit or every 30 days. Problem:Supervisory Visit Goal:Supervisory visit will be completed as ordered Completed Supervisory visit of FOUNTAIN VENDING MECHANIC performed. See aide/supervisory visit documentation for assessment. Skilled Assessment Pain Description: Assess pain (with standardized pain assessment tool) Problem:Pain/Comfort Deficit Goal:Patient reports that pain has been reduced or controlled through verbal or nonverbal means and that measures to promote comfort are effective Completed Instruct on management of edema Description: - Provide instruction regarding the cause/treatment of edema. - Instruct on infection prevention - Positioning, medication use, dietary restrictions (fluid/salt). - Ongoing assessment with measurement and documentation. - Notification of breaks in skin integrity to care team. - Management of drainage. - Elastic, support or SHABANA stockings - Avoid tight, constrictive clothing - Evaluate and consider removal of rings - Treat underlying co-morbidity, if clinically indicated per treatment goals, and as indicated to relieve symptoms of swelling and edema. Problem:Edema Goal:Patient's edema is decreased or stabilized Completed Skin Integrity Description: Remove any remaining sutures, these should have been removed prior to rehab discharge Problem:Alteration in Integumentary Status - Other Completed Assess Signs and Symptoms Description: - Assess respiratory rate and effort, lung sounds, changes in vital signs, SpO2, pain. - Assess for inability to move secretions, air hunger, reduced tolerance for activity, confusion, anxiety. Problem:Chronic Obstructive Pulmonary Disease Goal:Patient pulmonary care needs met without signs/symptoms of complications Completed documented in this encounter Care Teams Tape Calender Relationship Specialty Start Date End Date Hoang Castellanos APRN [address] [place] [address] PCP - General Family Medicine 03/12/20 documented as of this encounter
--- OUTSIDE RECORDS SUMMARY | 2024-02-22 00:47 | XMS_ITS | Encounter Summary ---
Author Organization [facility] Address [facility] [place] [address] Care Team Providers Care Mortgage Loan Assistant Name Role Phone Hoang Castellanos APRN Primary Care Provider [phone] Encounter Details Date Type Department Care Team (Late st Contact Info) Description 12/17/2021 10:30 AM EDT Home Care Visit [facility] [address] [place] [phone] Raj Nowak, PT PT HOME VISIT [...] in a long term (including now)? No 12/01/2021 Sex and Gender Information Value Date Recorded Sex Assigned at Not on file Gender Identity Not on file Sexual Orientation Not on file documented as of this encounter Last Filed Vital Signs Vital Sign Reading Time Taken Comments Blood Pressure 128/60 12/17/2021 10:35 AM EDT Pulse 66 12/17/2021 10:35 AM EDT Temperature 36.5 ??C (97.7 ??F) 12/17/2021 10:35 AM E DT Respiratory Rate - - Oxygen Saturation 98% 12/17/2021 10:35 AM EDT Inhaled Oxygen Concentration - - Weight - - Height - - Body Mass Index - - documented in this encounter Miscellaneous Notes * Home Health - Raj Lr, PT - 12/17/2021 10:30 AM EDT PATIENT MAKING GOOD PROGRESS WITH THERAPY, WITH IMPROVED PAIN LEVELS AND IMPROVED OVERALL MOBILITY.HEP UPDATED TO REFLECT CONTINUED RIGHT FOOT DROP AND NEED FOR DORSIFLEXION STRENGTHENING. SHE TRIALS TRANSFER TO<>FROM MOTORIZED SCOOTER TODAY, WHICH SHE CAN USE TO GET AROUND TOWN IF NEEDED. SHE REQUIRES USE OF FWW AND SUPERVISION FOR TRANSFER. SHE CONTINUES WITH AMBULATION TRAINING OUTDOORSUSING ROLLATOR WALKER- DEGREE OF RIGHT FOOT DROP INCREASES SHE FATIGUES, POSING TRIPPING HAZARD.PLAN TO CONTINUE WITH MOBILITY TRAINING, SAFETY TRAINING, AND PROGRESSIVE STRENGTHENING IN ORDER TOMEET HER GOALS. documented in this encounter Plan of Treatment [...] reduces fall frequency Completed Completed this visit: Establish or upgrade home program and Implement balance training documented in this encounter Care Teams Mortgage Loan Assistant Relationship Specialty Start Date End Date Hoang Castellanos APRN [address] [place] [address] PCP - General Family Medicine 03/12/20 documented as of this encounter
--- OUTSIDE RECORDS SUMMARY | 2024-02-22 00:47 | XMS_ITS | Encounter Summary ---
Author Organization [facility] Address [facility] [place] [place] [address] Care Team Providers Care Radio Station Audio Engineer Name Role Phone Hoang Castellanos APRN Primary Care Provider Encounter Details Date Type Department Care Team (Late st Contact Info) Description 12/14/2021 1:00 PM EDT Home Care Visit [facility] [address] [place] [phone] Raj Nowak, PT PT HOME VISIT [...] in a care home (including now)? No 12/01/2021 Sex and Gender Information Value Date Recorded Sex Assigned at Not on file Gender Identity Not on file Sexual Orientation Not on file documented as of this encounter Last Filed Vital Signs Vital Sign Reading Time Taken Comments Blood Pressure 112/60 12/14/2021 1:10 PM EDT Pulse 70 12/14/2021 1:10 PM EDT Temperature 36.7 ??C (98 ??F) 12/14/2021 1:10 PM EDT Respiratory Rate - - Oxygen Saturation 97% 12/14/2021 1:10 PM EDT Inhaled Oxygen Concentration - - Weight - - Height - - Body Mass Index - - documented in this encounter Miscellaneous Notes * Home Health - Raj Lr, PT - 12/14/2021 1:00 PM EDT PATIENT WITH COMPLAINTS OF CERVICAL PAIN TODAY. SHE INITIATES GAIT TRAINING ON UNEVEN SURFACES OUTDOORS WITH USE OF ROLLATOR WALKER. SHE REQUIRES VC FOR INCREASED HIP/KNEE FLEXION AND DORSIFLEXION THROUGHOUT RIGHT SWING PHASE TO AVOID CATCHING RIGHT FOOT ON THE GROUND. SHE TOLERATES APPROPRIATELY, ALTHOUGH WITH FATIGUE. PLAN TO CONTINUE TOLERATED NEXT VISIT. documented in this encounter Plan of Treatment [...] within 60 days. Gait Deficit No Patient performs home exercise program Description: [...] improves ambulation and quality of gait Completed Home Exercise Program Description: - Establish home [...] training documented in this encounter Care Teams Radio Station Audio Engineer Relationship Specialty Start Date End Date Hoang Castellanos, ELECTROPHYSIOLOGY TECHNICIAN [address] [place] [place] [address] PCP - General Family Medicine 03/12/20 documented as of this encounter
--- OUTSIDE RECORDS SUMMARY | 2024-02-22 00:47 | XMS_ITS | Encounter Summary ---
Author Organization [facility] Address [facility] [place] [address] Care Team Providers Care Engineer Assistant Name Role Phone Hoang Castellanos APRN Primary Care Provider Reason for Visit * Reason Onset Date Comments Prior Authorization 12/02/2021 Encounter Details Date Type Department Care Team (Late st Contact Info) Description 12/02/2021 Telephone Primary Care at [facility] [address] [place] [phone] Gautam Davidson Prior Authorization Social History Tobacco Use Types Packs/Day Years [...] * Telephone Encounter - Deepa Spencer - 12/02/2021 4:09 PM EDT MedPA for Diclofenac sodium gel has been approved from 07/25/2021 - 12/02/2022. Patient and pharmacy are aware. * Telephone Encounter - Gautam Davidson - 12/02/2021 10:02 AM EDT Sent in Med [facility] for Diclofenac Sodium 1% gel. Awaiting review. documented in this encounter Plan of Treatment Not on file documented as of this encounter Visit Diagnoses Not on filedocumented in this encounter Care Teams Engineer Assistant Relationship Specialty Start Date End Date Hoang Castellanos APRN [address] [place] [address] PCP - General Family Medicine 03/12/20 documented as of this encounter
--- OUTSIDE RECORDS SUMMARY | 2024-02-22 00:47 | XMS_ITS | Encounter Summary ---
Author Organization [facility] Address [facility] [place] [address] Care Team Providers Care Grey Stock Recorder Name Role Phone Hoang Castellanos APRN Primary Care Provider Encounter Details Date Type Department Care Team (Late st Contact Info) Description 01/20/2022 10:00 AM EDT Home Care Visit [facility] [address] [place] [phone] Meena Greenwood LPN SN HOME VISIT Social History Tobacco Use [...] slept in a usp (including now)? No 12/01/2021 Sex and Gender Information Value Date Recorded Sex Assigned at Not on file Gender Identity Not on file Sexual Orientation Not on file documented as of this encounter Last Filed Vital Signs Vital Sign Reading Time Taken Comments Blood Pressure 134/72 01/20/2022 12:45 PM EDT Pulse - - Temperature 36.2 ??C (97.1 ??F) 01/20/2022 12:45 PM E DT Respiratory Rate 18 01/20/2022 12:45 PM EDT Oxygen Saturation 95% 01/20/2022 12:45 PM EDT Inhaled Oxygen Concentration - - Weight - - Height - - Body Mass Index - - documented in this encounter Miscellaneous Notes * Case Communication - Meena Greenwood LPN - 01/20/2022 9:10 PM EDTPt ready for SN discharge. PT and OT have already discharged pt. Lizbet or Jasmin please set next visit up for a DC. Pt prefers phone DC, but ok with either. * Home Health - Meena Greenwood LPN - 01/20/2022 12:20 PM EDT Discharge next visit. Forms signed 6/29/22. documented in this encounter Plan of Treatment Not on file documented as of this encounter Visit Diagnoses Not on filedocumented in this encounter Home Health Visit - Care Plan Visit Details Visit Type -SN Home Visit Discipline -Jail Problems Problem Description Start Date Status Goals Interventions Learning/Teaching Needs - Inhalation Treatments Disciplines: DONALD BARRERA Lack of knowledge in how to administer inhalant treatments and how to care for the equipment. 11/26/2021 Resolved on 01/20/2022 1 goal linked to scheduled/docume nted intervention Supervisory Visit Disciplines: DONALD BARRERA Supervision of the JAVA SQL DEVELOPER. 11/26/2021 Resolved on 01/20/2022 1 goal linked to scheduled/docume nted intervention Pain/Comfort Deficit Disciplines: DONALD BARRERA Pain/comfort deficit related to back and shoulders from cervical surgery. 11/26/2021 Resolved on 01/20/2022 1 goal linked to scheduled/docume nted intervention 2 goal interventions scheduled/documen leela in this visit Edema Disciplines: All Disciplines Edema - Location: bilateral lower extremities - Amount: non-pitting with compression sock use 11/26/2021 Resolved on 01/20/2022 1 goal linked to scheduled/docume nted intervention 1 goal intervention scheduled/documen leela in this visit Chronic Obstructive Pulmonary Disease Disciplines: DONALD BARRERA, Physical Therapy, Occupational Therapy Care related to chronic obstructive pulmonary disease (includes asthma/bronchiti s/emphysema). 12/11/2021 Resolved on 01/20/2022 1 goal linked to scheduled/docume nted intervention Goals Goal Associated Problem Outcome Goal Met? Visit Notes Patient/caregiver demonstrates ability to administer inhalant medications and care for inhalant equipment Description: Pt will demonstrate the ability to administer inhalant medications and care for the equipment within end of certification period Learning/Teaching Needs - Inhalation Treatments Outcome (s) achieved Yes Supervisory visit will be completed as ordered Description: Perform supervisory visit at minimum every 16 days. Supervisory Visit Outcome (s) achieved Yes Patient reports that pain has been reduced or controlled through verbal or nonverbal means and that measures to promote comfort are effective Description: Patient will report that pain has been reduced or controlled through verbal or nonverbal means and that measures to promote comfort are effective withinend of certification period Pain/Comfort Deficit Outcome (s) achieved Yes Patient's edema is decreased or stabilized Description: Decrease or stabilization in amount of edema. Edema Outcome (s) achieved Yes Patient pulmonary care needs met without signs/symptoms of complications Description: Patient verbalizes comfort, ease of respiratory effort within 30 days. Chronic Obstructive Pulmonary Disease Outcome (s) achieved Yes Interventions Intervention Associated Problem/Goal Status Variance Visit Notes Skilled Assessment Pain Description: Assess pain (with standardized pain assessment tool) Problem:Pain/Comfort Deficit Goal:Patient reports that pain has been reduced or controlled through verbal or nonverbal means and that measures to promote comfort are effective Completed Pain Management Description: Instruct in pharmacologic and nonpharmacologic pain management techniques. Problem:Pain/Comfort Deficit Goal:Patient reports that pain has been reduced or controlled through verbal or nonverbal means and that measures to promote comfort are effective Completed Completed this visit: Instruct patient/caregiver in pain management Assess Edema Description: - Measure and document degree of edema. - Obtain patient weight (if appropriate). - Assess effectiveness of positioning and medication use. - Initiate changes as patient status dictates. - Assess for risk of infection. - Assess for underlying cause of edema. - Assess fluid balance and other systems such as respiratory status Problem:Edema Goal:Patient's edema is decreased or stabilized Completed documented in this encounter Care Teams Grey Stock Recorder Relationship Specialty Start Date End Date Hoang Castellanos, SENIOR RUBY DEVELOPER [address] [place] [address] PCP - General Family Medicine 03/12/20 documented as of this encounter
--- OUTSIDE RECORDS SUMMARY | 2024-02-22 00:47 | XMS_ITS | Encounter Summary ---
Author Organization [facility] [place] [address] Care Team Providers Care Gas Burner Operator Name Role Phone Hoang Castellanos APRN Primary Care Provider Encounter Details Date Type Department Care Team (Late st Contact Info) Description 12/15/2021 Refill Primary Care at [facility] [address] [place] [phone] Yvonne Luciano RN Social History Tobacco Use Types Packs/Day [...] as of this encounter Miscellaneous Notes * Addendum Note - Yvonne Luciano RN - 12/16/2021 3:43 PM EDTAddended by: YVONNE LUCIANO on: 12/16/2021 03:43 PM Modules accepted: Orders * Telephone Encounter - Yvonne Luciano RN - 12/16/2021 3:38 PM EDT Spoke with pt. She is not tachycardic, she has none of the following: chills, wheezing, N/V/D, headache, sore throat, fatigue, loss of taste or smell, runny nose, fever or nasal congestion. Reviewed GERD precautions per Fabby Freedman APRN. She is taking her Omeprazole BID, will try to elevate the HOB and not eat too close to bedtime. She would like to try benzonatate capsules and asked if they could go to [facility]. Rx pended to PCP if ok. * Telephone Encounter - Hoang Castellanos APRN - 12/16/2021 3:26 PM EDT She has HH, looks like nursing is going to home tomorrow, 12/17? Can they listen to her lungs, checkher vitals, O2 sat and call us with their assessment? May be COPD exacerbation as well-can treat with prednisone if sx are not improving, wheezing, low O2 sat. * Telephone Encounter - Fabby Freedman APRN - 12/16/2021 12:11 PM EDT Sorry for the delay. If her inhalers aren't really helping, especially albuterol at least for a bit, then it's probably not asthma itself that's setting this off. I would recommend triaging for COVIDand pneumonia (especially pneumo in the post-op setting), bringing her in if tachycardia at rest orany fever, and if none, then making sure she has GERD precautions optimized (PPI and elevated head of bed by just a couple of inches, smaller meals for inactivity, separate foods and liquids in the evening, sit up for 2-3 hours after dinner), and adding a cough suppressant at nighttime ([id number]) for about two weeks. Hopefully in that time she'll be able to get more active. If not able to get more active, then incentive spirometer. That whole discussion would certainly be reasonable for a THHV (better yet an in person V), but if no one has time, that's what I'd recommend. Ro, sound good to you? * Telephone Encounter - Yvonne Luciano RN - 12/15/2021 2:45 PM EDT Message received from pt that she has a cough, asthma is worsening Symptoms started about a week ago; Cough worse at HS; She has 3 inhalers she's using, minimally helpful with asthma . Her cough is productive of clear sputum. No fever; SOB when ambulating but since her surgery she has not been very active. Some SOB is not unusual for her. She can take a deep breath, no pain with inhalation. Surgery was 10/30/21 and she's not able to make it in for an appt. She is interested in TH visit if needed. She will continue with inhalers knows if her cough, SOB worsen or if she has chest tightness she should call office PRN or go to the closest ED. Pt verbalized understanding. Note routed to universal branch consultant provider. documented in this encounter Plan of Treatment Not on file documented as of this encounter Visit Diagnoses Not on filedocumented in this encounter Care Teams Gas Burner Operator Relationship Specialty Start Date End Date Hoang Castellanos APRN [address] [place] [address] PCP - General Family Medicine 03/12/20 documented as of this encounter
--- OUTSIDE RECORDS SUMMARY | 2024-02-22 00:47 | XMS_ITS | Encounter Summary ---
Author Organization [facility] Address [facility] [place] [address] Care Team Providers Care Delivery Coordinator Name Role Phone Hoang Castellanos APRN Primary Care Provider Encounter Details Date Type Department Care Team (Late st Contact Info) Description 12/29/2021 12:00 PM EDT Home Care Visit [facility] [address] [place] [phone] Raj Nowak, PT PT REASSESSMENT Social History Tobacco Use Types Packs/Day Years [...] place to sleep or slept in a alf (including now)? No 03/23/2022 Sex and Gender Information Value Date Recorded Sex Assigned at Not on file Gender Identity Not on file Sexual Orientation Not on file documented as of this encounter Last Filed Vital Signs Vital Sign Reading Time Taken Comments Blood Pressure 124/78 12/29/2021 12:25 PM EDT Pulse 62 12/29/2021 12:25 PM EDT Temperature 36.3 ??C (97.3 ??F) 12/29/2021 12:25 PM E DT Respiratory Rate - - Oxygen Saturation 96% 12/29/2021 12:25 PM EDT Inhaled Oxygen Concentration - - Weight - - Height - - Body Mass Index - - documented in this encounter Miscellaneous Notes * Home Health - aRj Nowak, PT - 12/29/2021 12:25 PM EDT PATIENT SEEN TODAY FOR PT REASSESSMENT. PATIENT CONTINUES TO FOCUS ON GAIT TRAINING, WITH EMPHASIS ON AVOIDING R FOOT DROP/DRAG. PATIENT DEMONSTRATES IMPROVED GAIT PATTERN TODAY, WITH FEWER INSTANCESOF FOOT DROP. PATIENT CONTINUES TO BE LIMITED BY FATIGUE. PATIENT WITH OVERALL IMPROVEMENT IN SYMPTOMS AND OVERALL FUNCTION. PLAN TO CONTINUE FUNCTIONAL STRENGTHENING, ACTIVITY TOLERANCE, GAIT TRAINING NEXT VISIT. documented in this encounter Plan of Treatment Not on file documented as of this encounter Visit Diagnoses Not on filedocumented in this encounter Home Health Visit - Care Plan Visit Details Visit Type -PT Reassessment Discipline -Physical Therapy Problems Problem Description Start [...] within 60 days. Decreased Strength No Patient improves balance and reduces fall [...] mobility Completed Completed this visit: Therapeutic exercise Balance Deficit Description: - Therapeutic exercise. - [...] training documented in this encounter Care Teams Delivery Coordinator Relationship Specialty Start Date End Date Hoang Castellanos, PETROLEUM INSPECTOR SUPERVISOR [address] [place] [address] PCP - General Family Medicine 03/12/20 documented as of this encounter
--- OUTSIDE RECORDS SUMMARY | 2024-02-22 00:47 | XMS_ITS | Encounter Summary ---
Author Organization [facility] Address [facility] [place] [address] Care Team Providers Care Meat Cutting Teacher Name Role Phone Hoang Castellanos APRN Primary Care Provider Encounter Details Date Type Department Care Team (Late st Contact Info) Description 01/14/2022 Orders Only Primary Care at [facility] [address] [place] [phone] Hoang Castellanos APRN [address] [place] [address] Dermal mycosis Social History Tobacco Use Types Packs/Day Years [...] slept in a custodial (including now)? No 12/01/2021 Sex and Gender Information Value Date Recorded Sex Assigned at Not on file Gender Identity Not on file Sexual Orientation Not on file documented as of this encounter Plan of Treatment Not on file documented as of this encounter Visit Diagnoses Diagnosis Dermal mycosis Dermatomycosis, unspecified documented in this encounter Care Teams Meat Cutting Teacher Relationship Specialty Start Date End Date Hoang Castellanos APRN [address] [place] [address] PCP - General Family Medicine 03/12/20 documented as of this encounter
--- OUTSIDE RECORDS SUMMARY | 2024-02-22 00:47 | XMS_ITS | Encounter Summary ---
Author Organization [facility] Address [facility] [place] [address] Care Team Providers Care Individual Small Group Instructor Name Role Phone Hoang Castellanos APRN Primary Care Provider Encounter Details Date Type Department Care Team (Late st Contact Info) Description 01/07/2022 1:30 PM EDT Home Care Visit [facility] [address] [place] [phone] Raj Nowak, PT PT HOME VISIT [...] Reading Time Taken Comments Blood Pressure 130/70 01/07/2022 3:42 PM EDT Pulse 60 01/07/2022 3:42 PM EDT Temperature 36.7 ??C (98 ??F) 01/07/2022 3:42 PM EDT Respiratory Rate - - Oxygen Saturation 94% 01/07/2022 3:42 PM EDT Inhaled Oxygen Concentration - - Weight - - Height - - Body Mass Index - - documented in this encounter Miscellaneous Notes * Home Health - Raj Lr, PT - 01/07/2022 2:03 PM EDT PATIENT MAKING GOOD PROGRESS WITH PT. SHE IS ABLE TO INCREASED AMBULATORY DISTANCE WITH FWW TO 300FT WITH PT SUPERVISION. SHE REQUIRES 1 INSTANCE OF STANDING REST THROUGHOUT 300FT. SHE CONTINUES TO DEMONSTRATE R FOOT DROP, DESPITE CONTINUED EFFORTS TO IMPROVE STRENGTH. PATIENT EDUCATED REGARDINGUSE OF R AFO DURING LONG DISTANCE AMBULATION IN ORDER TO IMPROVE GAIT AND INCREASE WALKING TOLERANCE. SHE VERBALIZES UNDERSTANDING. PATIENT TRIALS AMBULATION TODAY USING LEFT UNILATERAL HANDRAIL ON OUTDOOR RAMP- SHE REQUIRES SUPERVISION BUT IS ABLE TO AMBULATE WITH UNILATERAL EXTERNAL SUPPORT FROM RAILING. PLAN TO CONTINUE PROGRESSING GAIT/BALANCE TRAINING NEXT VISIT. PATIENT NEARING PT DISCHARGEBY END OF CERT. documented in this encounter Plan of Treatment [...] fall frequency Completed Completed this visit: Therapeutic exercise, Implement balance training and Perform home safety assessment and give recommendations to patient/caregiver documented in this encounter Care Teams Individual Small Group Instructor Relationship Specialty Start Date End Date Hoang Castellanos, DRAFTER GEOLOGICAL [address] [place] [address] PCP - General Family Medicine 03/12/20 documented as of this encounter
--- OUTSIDE RECORDS SUMMARY | 2024-02-22 00:47 | XMS_ITS | Encounter Summary ---
Author Organization [facility] Address [facility] [place] [address] Care Team Providers Care Blood Bank Supervisor Name Role Phone Hoang Castellanos APRN Primary Care Provider Reason for Visit * Reason Onset Date Comments Social Service Coordination 12/18/2021 Encounter Details Date Type Department Care Team (Late st Contact Info) Description 12/18/2021 Telephone Primary Care at [facility] [address] [place] [phone] Jeannie Luciano, RN Social Service Coordination Social History Tobacco Use Types Packs/Day Years [...] slept in a m[facility] (including now)? No 12/01/2021 Sex and Gender Information Value Date Recorded Sex Assigned at Not on file Gender Identity Not on file Sexual Orientation Not on file documented as of this encounter Miscellaneous Notes * Telephone Encounter - Hoang Castellanos APRN - 12/18/2021 2:44 PM EDT I think that's a well thought out plan. Thanks for working with her today! * Telephone Encounter - Jeannie Luciano RN - 12/18/2021 1:32 PM EDT Message received from pt's sister (Rae Mittal) with concerns about Jeannie. Jeannie's is the hospital and Jeannie has a hard doing anything for herself. She isn't able to cook anything at home, she doesn't drive, and has difficulty getting into her hospital bed without assistance. Rae was concerned Jeannie couldn't get to the bathroom alone. Rae said she's been visiting but will be ret'd home to [place] tomorrow. No release on file to speak with rae; placed call to pt. Jeannie said ERMA Jackson from [facility] was there at the time. Renetta did have Jeannie transfer to bathroom and back safely. Jeannie was dressed before Renetta arrivedfor her visit today. I let Jeannie know why I was calling and she was happy to hear from me. Jeannie put me on speaker phoneso Renetta could hear conversation as well. Concerns: 1) Jeannie is living alone. 2) Can't afford to hire private home care. 3) Unable to drive to store and p/u food. 4) high fall risk d/t the lights in her rooms are in the middle of the ceiling so she has to walk skilled nursing into the room before she can turn a light on. Discussed with Jeannie and Renetta and the plan is as follows: Jeannie has a friend who is also her neighbor, Sanjuana. Sanjuana does work but Jeannie was contacting her tosee if Sanjuana could check in with her after she gets home from work every day. Jeannie was also going to see if Sanjuana would be willing to machine operator hop picker some easy to prepare frozen foods that are also healthy options. Jeannie does get [employer] Wheels on weekdays and they also have frozen meal options. Jeannie will call them to arrange delivery. Jeannie has [facility] PT, OT, CLINICAL LEADER and SN who will visit her regularly. HCRS Matcher, Angela was scheduled to visit Jeannie today to help her have a plan in place anddo some add'l problem solving. Rae will continue to check in with Jeannie twice a day by phone and is going to look into getting her Lifeline or something similar. Jeannie will keep her phones nearby at all times and will give her neighbor Sanjuana a ramírez to her apartment for emergencies. eJannie is aware she can call [facility] 14/02 with any questions or concerns. She knows she can also call the clinic at any time; if it's after hours, the provider electronic induction hardener will be paged. Jeannie or Rae will call 911 if needed. Jeannie did give me verbal permission to speak with her sister about our conversation and the plan put in place. documented in this encounter Plan of Treatment Not on file documented as of this encounter Visit Diagnoses Not on filedocumented in this encounter Care Teams Blood Bank Supervisor Relationship Specialty Start Date End Date Hoang Castellanos, VOCAL PERFORMER [address] [place] [address] PCP - General Family Medicine 03/12/20 documented as of this encounter
--- OUTSIDE RECORDS SUMMARY | 2024-02-22 00:47 | XMS_ITS | Encounter Summary ---
Author Organization [facility] Address [facility] [place] [address] Care Team Providers Care Legal Associate Name Role Phone Hoang Castellanos APRN Primary Care Provider Encounter Details Date Type Department Care Team (Late st Contact Info) Description 01/13/2022 9:00 AM EDT Home Care Visit [facility] [address] [place] [phone] Fara Joel RN SN HOME VISIT Social History Tobacco [...] Sign Reading Time Taken Comments Blood Pressure 118/62 01/13/2022 9:29 AM EDT Pulse 55 01/13/2022 9:29 AM EDT Temperature 37.1 ??C (98.8 ??F) 01/13/2022 9:29 AM ED T Respiratory Rate 21 01/13/2022 9:29 AM EDT Oxygen Saturation 97% 01/13/2022 9:29 AM EDT Inhaled Oxygen Concentration - - Weight - - Height - - Body Mass Index - - documented in this encounter Miscellaneous Notes * Case Communication - Fara Joel RN - 01/13/2022 10:01 AM EDTCG met SN at the door and let SN into the home upon arrival. SNV was done for observationand assesment of COPD and concern about redness under R breast. Moved to living room where visit completed. Upon assessment, R breast has some redness that appears to be yeast, lungs clear, pt continues to smoke, meds stable. Advised to get some Miconazole powder and place once a day, advised to keep area clean and dry. No drainage from wound Educated on COPD exac using zone tool, smoking cessation which pt has chosen a date of 01/22 to stop. Prior to arrival COVID screening performed and no positives found. Standard COVID precautions used entirevisit. SN wore masks. Hoang, if you agree with this plan for area under breast please respond. paz Garcias report * Home Health - Fara Joel RN - 01/13/2022 9:17 AM EDT CG met SN at the door and let SN into the home upon arrival. SNV was done for observationand assesment of COPD and concern about redness under R breast. Moved to living room where visit completed. Upon assessment, R breast has some redness that appears to be yeast, lungs clear, pt continues to smoke, meds stable. Advised to get some Miconazole powder and place once a day, advised to keep area clean and dry. No drainage from wound Educated on COPD exac using zone tool, smoking cessation which pthas chosen a date of 01/22 to stop. Prior to arrival COVID screening performed and no positives found. Standard COVID precautions used entire visit. SN wore masks. documented in this encounter Plan of Treatment Not on file documented as of this encounter Visit Diagnoses Not on filedocumented in this encounter Care Teams Legal Associate Relationship Specialty Start Date End Date Hoang Castellanos, MAINTENANCE SHOP WELDER [address] [place] [address] PCP - General Family Medicine 03/12/20 documented as of this encounter
--- OUTSIDE RECORDS SUMMARY | 2024-02-22 00:47 | XMS_ITS | Encounter Summary ---
Author Organization [facility] Address [facility] [place] [address] Care Team Providers Care Market Analyst Name Role Phone Hoang Castellanos APRN Primary Care Provider [phone] Encounter Details Date Type Department Care Team (Late st Contact Info) Description 01/12/2022 [facility] [address] [place] [phone] Marlene Carolina, RN TELEPHONE ENCOUNTER Social History Tobacco Use Types [...] on filedocumented in this encounter Care Teams Market Analyst Relationship Specialty Start Date End Date Hoang Castellanos APRN [address] [place] [address] PCP - General Family Medicine 03/12/20 documented as of this encounter
--- OUTSIDE RECORDS SUMMARY | 2024-02-22 00:47 | XMS_ITS | Encounter Summary ---
Author Organization [facility] Address [facility] [place] [address] Care Team Providers Care Plant Maintenance Worker Name Role Phone Hoang Castellanos APRN Primary Care Provider Encounter Details Date Type Department Care Team (Late st Contact Info) Description 12/04/2021 11:00 AM EDT Home Care Visit [facility] [address] [place] [phone] Jolly Haddad LNA AIDE HOME VISIT Social History Tobacco Use Types [...] slept in a fpc (including now)? No 12/01/2021 Sex and Gender Information Value Date Recorded Sex Assigned at Not on file Gender Identity Not on file Sexual Orientation Not on file documented as of this encounter Plan of Treatment Not on file documented as of this encounter Visit Diagnoses Not on filedocumented in this encounter Home Health Visit - Care Plan Visit Details Visit Type -Aide Home Visit Discipline -Home Health Aide Problems Problem Description Start Date Status Goals Interve ntions Personal Care Disciplines: ACCOUNT REVIEW SPECIALIST Aide to assist patient with personal cares as directed. 11/26/2021 Active 1 goal linked to scheduled/documen leela intervention 6 goal interventions scheduled/document ed in this visit Activity Disciplines: ACCOUNT REVIEW SPECIALIST Aide to assist patient activity tasks as directed. 11/26/2021 Active 1 goal linked to scheduled/documen leela intervention 3 goal interventions scheduled/document ed in this visit Goals Goal Associated Problem Outcome Goal Met? Visit Notes Patient's personal care will be completed by aide as ordered Description: Patient's personal cares will be supported by aide to maintain or improve function as ordered within certification period Personal Care No Patient activity needs will be completed by aide as ordered Description: Aide support with the goal in patient activity of maintaining current function, and/or improving function aide as ordered within certification period Activity No Interventions Intervention Associated Problem/Goal Status Variance Visit Notes Perform Hair Care Description: Perform hair care using brush or comb. Problem:Personal Care Goal:Patient's personal care will be completed by aide as ordered Completed Inspect Skin Description: Inspect skin for signs of pressure or irritation. Report any observed or patient-reported concerns to RN. Problem:Personal Care Goal:Patient's personal care will be completed by aide as ordered Completed Assist Dressing Description: Assist patient with upper and lower clothes dressing. Problem:Personal Care Goal:Patient's personal care will be completed by aide as ordered Completed Assist Bath Description: Assistance with bath. Acceptable bath location(s): tub/shower, bathroom area. Clean immediate area after bath. Problem:Personal Care Goal:Patient's personal care will be completed by aide as ordered Completed Assist Shampoo Description: Assist patient with shampooing hair in shower or bathtub, pt not able (due to md orders) to lean over sink Problem:Personal Care Goal:Patient's personal care will be completed by aide as ordered Completed Apply Lotion Description: Apply lotion to patient's skin. Lotion per patient preference. Problem:Personal Care Goal:Patient's personal care will be completed by aide as ordered Scheduled with variance N/A Transfers Description: ACCOUNT REVIEW SPECIALIST assist with transfers using Tub chair with extension Problem:Activity Goal:Patient activity needs will be completed by aide as ordered Completed Assist with Ambulation Description: ACCOUNT REVIEW SPECIALIST assist with ambulation using walker or wheelchair Problem:Activity Goal:Patient activity needs will be completed by aide as ordered Completed Assist Repositioning Description: Assist with repositioning patient. Problem:Activity Goal:Patient activity needs will be completed by aide as ordered Completed documented in this encounter Care Teams Plant Maintenance Worker Relationship Specialty Start Date End Date Hoang Castellanos, ELECTRICIAN AIRCRAFT [address] [place] [address] PCP - General Family Medicine 03/12/20 documented as of this encounter
--- OUTSIDE RECORDS SUMMARY | 2024-02-22 00:47 | XMS_ITS | Encounter Summary ---
Author Organization [facility] Address [facility] [place] [address] Care Team Providers Care Carry All Driver Name Role Phone Hoang Castellanos APRN Primary Care Provider Encounter Details Date Type Department Care Team (Late st Contact Info) Description 12/24/2021 12:30 PM EDT Home Care Visit [facility] [address] [place] [phone] Raj Nowak, PT PT HOME VISIT [...] Sign Reading Time Taken Comments Blood Pressure 140/82 12/24/2021 1:16 PM EDT Pulse 65 12/24/2021 1:16 PM EDT Temperature 36.9 ??C (98.4 ??F) 12/24/2021 1:16 PM ED T Respiratory Rate - - Oxygen Saturation 95% 12/24/2021 1:16 PM EDT Inhaled Oxygen Concentration - - Weight - - Height - - Body Mass Index - - documented in this encounter Miscellaneous Notes * Home Health - Raj Lr, PT - 12/24/2021 12:37 PM EDT PATIENT CONTINUES TODAY WITH AMBULATION OUTDOORS ON UNEVEN TERRAIN UTILIZING RW. PATIENT CONTINUES TO DEMONSTRATE R FOOT DROP, MOST SIGNIFICANT IN TERMINAL STANCE TO INITIAL SWING PHASES OF RLE. DROPFOOT IMPROVES WITH WALKING, BUT WILL THEN WORSEN AGAIN SHE FATIGUES. PATIENT CONTINUES WITH AND PROGRESSES FUNCTIONAL STRENGTHENING EXERCISES TO INCLUDE SIT<>STAND, WHICH SHE TOLERATES WITHOUT ADVERSE EFFECTS. PT REMINDS PATIENT OF IMPORTANCE OF POSTURE, INCLUDING INCREASED EXTENSION THROUGHOUT THORACIC SPINE TO BETTER SUPPORT HER NECK. SHE IS EDUCATED THAT SHE NEEDS TO MAKE A CONSCIOUS EFFORT TO IMPROVE HER POSTURE, AND THAN IT LIKELY WILL NOT BE INSTINCTIVE YET. SHE VERBALIZES UNDERSTANDING. PLAN TO CONTINUE WITH PT WEEKLY FOCUSED ON IMPROVING GAIT/BALANCE, STRENGTH, AND OVERALL MOBILITY. documented in this encounter Plan of Treatment [...] training documented in this encounter Care Teams Carry All Driver Relationship Specialty Start Date End Date Hoang Castellanos, SAM [address] [place] [address] PCP - General Family Medicine 03/12/20 documented as of this encounter
--- OUTSIDE RECORDS SUMMARY | 2024-02-22 00:47 | XMS_ITS | Encounter Summary ---
Author Organization [facility] Address [facility] [place] [address] Care Team Providers Care Sound Ranging Crewmember Name Role Phone Hoang Castellanos APRN Primary Care Provider Encounter Details Date Type Department Care Team (Late st Contact Info) Description 12/14/2021 9:45 AM EDT Home Care Visit [facility] [address] [place] [phone] Jolly Haddad LNA AIDE HOME VISIT [...] Status Goals Interve ntions Personal Care Disciplines: LAY BROTHER Aide to assist patient with personal cares as directed. 11/26/2021 Active 1 goal linked to scheduled/documen leela intervention 6 goal interventions scheduled/document ed in this visit Activity Disciplines: LAY BROTHER Aide to assist patient activity tasks as [...] be completed by aide as ordered Completed Transfers Description: LAY BROTHER assist with transfers using Tub chair with extension Problem:Activity Goal:Patient activity needs will be completed by aide as ordered Completed Assist with Ambulation Description: LAY BROTHER assist with ambulation using walker or wheelchair Problem:Activity Goal:Patient activity needs will be completed by aide as ordered Completed Assist Repositioning Description: Assist with repositioning patient. Problem:Activity Goal:Patient activity needs will be completed by aide as ordered Completed documented in this encounter Care Teams Sound Ranging Crewmember Relationship Specialty Start Date End Date Hoang Castellanos, BEREAVEMENT COUNSELOR [address] [place] [address] PCP - General Family Medicine 03/12/20 documented as of this encounter
--- OUTSIDE RECORDS SUMMARY | 2024-02-22 00:47 | XMS_ITS | Encounter Summary ---
Author Organization [facility] Address [facility] [place] [address] Care Team Providers Care Chartered Accountant Name Role Phone Hoang Castellanos APRN Primary Care Provider [phone] Encounter Details Date Type Department Care Team (Late st Contact Info) Description 01/21/2022 2:00 PM EDT Home Care Visit [facility] Home Health [address] [place] [phone] Fara Joel RN SN OASIS DISCHARGE Social History Tobacco Use Types Packs/Day [...] slept in a fdc (including now)? No 12/01/2021 Sex and Gender Information Value Date Recorded Sex Assigned at Not on file Gender Identity Not on file Sexual Orientation Not on file documented as of this encounter Plan of Treatment Not on file documented as of this encounter Visit Diagnoses Not on filedocumented in this encounter Care Teams Chartered Accountant Relationship Specialty Start Date End Date Hoang Castellanos APRN [address] [place] [address] PCP - General Family Medicine 03/12/20 documented as of this encounter
--- OUTSIDE RECORDS SUMMARY | 2024-02-22 00:47 | XMS_ITS | Encounter Summary ---
Author Organization [facility] Address [facility] [address] Care Team Providers Care Supervisory Forester Name Role Phone Hoang Castellanos APRN Primary Care Provider Encounter Details Date Type Department Care Team (Late st Contact Info) Description 01/12/2022 Home Care Visit [facility] Home Health [address] [place] [phone] Fara Joel RN TELEPHONE ENCOUNTER Social History Tobacco Use [...] slept in a alf (including now)? No 12/01/2021 Sex and Gender Information Value Date Recorded Sex Assigned at Not on file Gender Identity Not on file Sexual Orientation Not on file documented as of this encounter Miscellaneous Notes * Case Communication - Fara Joel RN - 01/12/2022 11:49 AM EDTCalled and spoke to pt RE: triage call about the redness under her breast. She is ok with visit tomorrow (Tuesday) am as planned. She denies drainage or pain at the site. Advised she could get somemiconazole powder as if its from moisture it's likely yeast. She verbalized understanding and will be seen in am tomorrow. documented in this encounter Plan of Treatment Not on file documented as of this encounter Visit Diagnoses Not on filedocumented in this encounter Care Teams Supervisory Forester Relationship Specialty Start Date End Date Hoang Castellanos, DIRECTOR PRESALES [address] [place] [address] PCP - General Family Medicine 03/12/20 documented as of this encounter
--- OUTSIDE RECORDS SUMMARY | 2024-02-22 00:47 | XMS_ITS | Encounter Summary ---
Author Organization [facility] Address [facility] [place] [address] Care Team Providers Care Sorting Grapple Operator Name Role Phone Hoang Castellanos APRN Primary Care Provider Encounter Details Date Type Department Care Team (Latest Contact Info) Description 01/19/2022 9:00 AM EDT Home Care Visit [facility] [address] [place] [phone] Raj Nowak, PT PT DISCIPLINE DISCHARGE Social History Tobacco Use Types Packs/Day [...] Sign Reading Time Taken Comments Blood Pressure 110/76 01/19/2022 9:05 AM EDT Pulse 55 01/19/2022 9:05 AM EDT Temperature 36.9 ??C (98.4 ??F) 01/19/2022 9:05 AM ED T Respiratory Rate - - Oxygen Saturation 96% 01/19/2022 9:05 AM EDT Inhaled Oxygen Concentration - - Weight - - Height - - Body Mass Index - - documented in this encounter Miscellaneous Notes * Home Health - Raj Lr, PT - 01/19/2022 9:00 AM EDT NO FURTHER PT NEEDED. GOALS MET. documented in this encounter Plan of Treatment Not on file documented as of this encounter Visit Diagnoses Not on filedocumented in this encounter Home Health Visit - Care Plan Visit Details Visit Type -PT Discipline Judith bar Discipline -Physical Therapy Problems Problem Description Start Date Status Goals Interve ntions Pain Disciplines: PT Chronic pain of grade 2 or less on a scale of 0-10. 11/30/2021 Active 1 goal linked to scheduled/documen leela intervention Decreased Bed Mobility Disciplines: PT Decreased bed mobility. 11/30/2021 Active 1 goal linked to scheduled/documen leela intervention Gait Deficit Disciplines: PT - Decreased ambulation requiring stand-by level of assist. - Decreased quality of gait with gait deviations and/or impaired postural alignment. 11/30/2021 Active 1 goal linked to scheduled/documen leela intervention 1 goal intervention scheduled/document ed in this visit Transfer Deficit Disciplines: PT - Decreased transfer ability requiring independent with device level of assist related to sit<>stand. - Requires caregiver instruction. 11/30/2021 Active 1 goal linked to scheduled/documen leela intervention Decreased Strength Disciplines: PT Decreased strength in lower extremities and upper extremities related to HISTORY OF CORD COMPRESSION. 11/30/2021 Active 1 goal linked to scheduled/documen leela intervention 1 goal intervention scheduled/document ed in this visit Home Exercise Program Disciplines: PT Requires instruction of home program for therapeutic exercise and functional mobility. 11/30/2021 Active 1 goal linked to scheduled/documen leela intervention Balance Deficit Disciplines: PT Impaired standing and dynamic balance with potential safety problems related to HISTORY OF CORD COMPRESSION, STRENGTH DEFICITS. 11/30/2021 Active 1 goal linked to scheduled/documen leela intervention 1 goal intervention scheduled/document ed in this visit Goals Goal Associated Problem Outcome Goal Met? Visit Notes Patient reports decreased pain and/or increased functional activity Description: - Patient will report decreased shoulder/neck pain to 2 or less on a scale of 0-10 within 60 days. - Decreased neck/shoulder pain as evidenced by improved functional activity within 60 days. - Patient will demonstrate safe use of appropriate modality for pain management within 60 days. Pain Outcome (s) achieved Yes Patient improves bed mobility Description: Improved bed mobility as evidenced by moving in bed with independent with device level of assist within 60 days. Decreased Bed Mobility Outcome (s) achieved Yes Patient improves ambulation and quality of gait Description: - Improved household and outdoors ambulation as evidenced by ambulation with independent with device level of assist within 60 days. - Improved quality of gait as evidenced by reduced right foot drag in 60 days. - Patient will negotiate ramp, curb requiring independent with device level of assist with RW/FWW, within 60 days. Gait Deficit Outcome (s) achieved Yes Patient improves transfer ability Description: Improved transfer ability of patient as evidenced by independent with device level of assist in 60 days. Transfer Deficit Outcome (s) achieved Yes Patient increases strength and/or functional mobility Description: - Demonstrate good follow-through with progressive program within 60 days. - Increased functional mobility as evidenced by improved transfers, bed mobility, gait within 60 days. Decreased Strength Outcome (s) achieved Yes Patient performs home exercise program Description: - Demonstrates good follow-through with progressive exercise and ambulation program within 60 days. - Patient will be able to demonstrate home program within 60 days. - Patient will be able to perform home program with independent with device level of assist in 60 days. Home Exercise Program Outcome (s) achieved Yes Patient improves balance and reduces fall frequency Description: - Improved balance for functional ambulation within 60 days. - Patient will implement fall risk strategies within 60 days. - Patient will report reduced fall/balance frequency within 60 days. - Improved standard balance testing score TO >19/28 Tinetti within 60 days. Balance Deficit Outcome (s) achieved Yes Interventions Intervention Associated [...] reduces fall frequency Completed Completed this visit: Implement balance training documented in this encounter Care Teams Sorting Grapple Operator Relationship Specialty Start Date End Date Hoang Castellanos APRN [address] [place] [place] [address] PCP - General Family Medicine 03/12/20 documented as of this encounter
--- OUTSIDE RECORDS SUMMARY | 2024-02-22 00:47 | XMS_ITS | Encounter Summary ---
Author Organization [facility] [place] [address] Care Team Providers Care Alcoholic Counselor Name Role Phone Hoang Castellanos APRN Primary Care Provider [phone] Encounter Details Date Type Department Care Team (Late st Contact Info) Description 01/08/2022 Orders Only [place] [phone] Priya Charles, LINEN CONTROLLER [facility] [place] [address] S/P gastric bypass; Disorder of iron metabolism; [...] as of this encounter Results * Vitamin B1, whole blood (03/31/2022 9:29 AM EDT) Pathologist [facility] Vit B1 Lvl WB 150 70 - 180 nmol/L [facility] Comment: ADDITIONAL INFORMATION This test was developed and its performance characteristics determined by [facility] in a manner consistent with CLIA requirements. This test has not been cleared or approved by the U.S. Food and Drug Administration. Test Performed by: [facility] - [address] [address] Environmental Manager: Skinny Reyes M.D. Ph.D.; CLIA# [id number] Blood 03/31/2022 9:29 AM EDT 03/31/2022 4:59 PM EDT Narrative Resulting Agency Comment Spec In Lab Priya Charles APRN CHEMISTRY ORDERA BLES Performing Organization Address City/[facility]/ZIP Co de Phone Number LABORATORY [address] [place] [address] * Vitamin B12 (03/31/2022 9:29 AM EDT) Vitamin B-12 690 232 - 1,245 pg/mL [facility] Blood 03/31/2022 9:29 AM EDT 03/31/2022 5:10 PM EDT Narrative Resulting Agency Comment Spec In Lab Priya Charles APRN CHEMISTRY ORDERA BLES Performing Organization Address [facility] Co de Phone Number [facility] [place] [address] * PTH (03/31/2022 9:29 AM EDT) PTH 52 15 - 65 pg/mL [facility] Blood 03/31/2022 9:29 AM EDT 03/31/2022 4:41 PM EDT Narrative Resulting Agency Comment Spec In Lab Priya Charles APRN CHEMISTRY ORDERA BLES Performing Organization Address [facility] Co de Phone Number [facility] [place] [address] * (ABNORMAL) Iron and TIBC (03/31/2022 9:29 AM EDT) Iron 40 30 - 150 mcg/dL [facility] TIBC 381 250 - 450 mcg/dL [facility] Iron Saturation 10(L) 20 - 50 % [facility] Blood 03/31/2022 9:29 AM EDT 03/31/2022 11:41 AM EDT Narrative Resulting Agency Comment Spec In Lab Priya Charles LINEN CONTROLLER CHEMISTRY ORDERA BLES Performing Organization Address City/[facility]/ZIP Co de Phone Number LABORATORY [address] [place] [address] * (ABNORMAL) Hemogram (03/31/2022 9:29 AM EDT) WBC 10.7(H) 4.0 - 9.5 x10(3)/mcL [facility] RBC 4.46 4.00 - 5.21 x10(6)/mcL [facility] Hemoglobin 13.2 11.7 - 15.5 g/dL [facility] Hematocrit 42.9 35.7 - 45.8 % [facility] MCV 96.2(H) 82.6 - 94.4 fL [facility] MCH 29.6 27.1 - 32.0 pg [facility] MCHC 30.8(L) 31.7 - 35.0 g/dL [facility] Platelets 277 145 - 357 x10(3)/mcL [facility] RDWSD 53.0(H) 37.0 - 46.0 fL [facility] RDWCV 14.6(H) 11.5 - 14.1 % [facility] MPV 10.5 7.6 - 12.9 fL [facility] Blood 03/31/2022 9:29 AM EDT 03/31/2022 11:41 AM EDT Narrative Resulting Agency Comment Spec In Lab Priya Charles APRN HEMATOLOGY ORDER MORENO [facility] [address] [place] [address] * Folate, serum (03/31/2022 9:29 AM EDT) Folate Lvl 7.5 4.8 - 24.2 ng/mL [facility] Blood 03/31/2022 9:29 AM EDT 03/31/2022 5:10 PM EDT Narrative Resulting Agency Comment Spec In Lab Priya Charles APRN CHEMISTRY ORDERA KE Performing Organization Address [facility] Co de Phone Number [facility] [place] [address] * (ABNORMAL) Ferritin (03/31/2022 9:29 AM EDT) [facility] Signature Ferritin 17(L) 30 - 400 ng/mL [facility] Comment: Pediatric reference ranges not verified at [facility], interpret with caution. Reference ranges for females greater than 50 years of age approach values for men, i.e., 30-400 ng/mL. 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
--- OUTSIDE RECORDS SUMMARY | 2024-02-22 00:47 | XMS_ITS | Encounter Summary ---
[place] [address] Care Team Providers Care Senior Naval Parachutist Name Role Phone Hoang Castellanos APRN Primary Care Provider Encounter Details Date Type Department Care Team (Late st Contact Info) Description 01/06/2022 [place] [address] Tegan Garcia RN Cervical spinal stenosis Social History Tobacco Use [...] documented as of this encounter Results * XR Cervical Spine 2 or 3 Views (01/21/2022 8:08 AM EDT) Anatomical Region Laterality Modality C-spine N/A Digital Radiogra phy Impressions 01/21/2022 11:34 AM EDT Postoperative changes status post posterior decompression and fusion from C5 to C6. No breakage of the hardware. No screw backout. No change in position of the hardware. Minimally displaced C7 spinous process fracture. I have personally reviewed the image(s) and the resident's interpretation and agree with the findings, Naomi Ricci MD at 01/21/2022 11:34 AM Thank you for letting us participate in the care of this patient. ??If you are a health care provider and have any questions regarding this report, please contact the number below. ??For patients who have questions please contact the health manager critical care that requested your imaging first. ? Electronically signed by: Naomi Ricci MD, [facility] ([phone]), at 01/21/2022 11:34 AM Narrative 01/21/2022 11:34 AM EDT EXAMINATION: XR CERVICAL SPINE 2 OR 3 VIEWS CLINICAL HISTORY: Cspine fracture (as entered by ordering provider in the order requisition) TECHNIQUE: AP and lateral views of the cervical spine. COMPARISON: None FINDINGS: The cervical spine is well seen in the lateral projection from C1 to C7. . Postoperative changes status post posterior decompression and fusion from C5-6. The anterior atlantodental interval is within normal limits. There is trace retrolisthesis of C4 on C5. No focal vertebral body height loss. Unchanged alignment of posterior cervical lateral mass screws and rods at C5-C6 accounting for subtle differences in projection. No hardware fracture or hernan-hardware lucency. Normal prevertebral soft tissues. Redemonstrated disc height loss and degenerative endplate changes with osteophytes at C6-7. Fracture of the C7 spinous process. Procedure Note Naomi Ricci MD - 01/21/2022 EXAMINATION: XR CERVICAL SPINE 2 OR 3 VIEWS CLINICAL HISTORY: Cspine fracture (as entered by ordering provider in theorder requisition) TECHNIQUE: AP and lateral views of the cervical spine. COMPARISON: None FINDINGS: The cervical spine is well seen in the lateral projection from C1 to C7.. Postoperative changes status post posterior decompression and fusion fromC5-6. The anterior atlantodental interval is within normal limits. There istrace retrolisthesis of C4 on C5. No focal vertebral body height loss.Unchanged alignment of posterior cervical lateral mass screws and rods at C5-[id number] for subtle differences in projection. No hardware fracture orperi-hardware lucency. Normal prevertebral soft tissues. Redemonstrated disc height lossand degenerative endplate changes with osteophytes at C6-7. Fracture of theC7 spinous process. IMPRESSION Postoperative changes status post posterior decompression and fusion fromC5 to C6. No breakage of the hardware. No screw backout. No change in positionof the hardware. Minimally displaced C7 spinous process fracture. I have personally reviewed the image(s) and the resident's interpretationand agree with the findings, Naomi Ricci MD at 01/21/2022 11:34 AM Thank you for letting us participate in the care of this patient. If youare a health care provider and have any questions regarding this report,please contact the number below. For patients who have questions please contactthe health manager critical care that requested your imaging first. Campos Puente MD IMG DX ORDERABLES documented in this encounter Visit Diagnoses Diagnosis Cervical spinal stenosis Spinal stenosis in cervical region Cervical spinal stenosis Spinal stenosis in cervical region documented in this encounter Care Teams Senior Naval Parachutist Relationship Specialty Start Date End Date Hoang Castellanos, FAMILY SPECIALIST [address] [place] [address] PCP - General Family Medicine 03/12/20 documented as of this encounter
--- OUTSIDE RECORDS SUMMARY | 2024-02-22 00:47 | XMS_ITS | Encounter Summary ---
Author Organization [facility] Address [facility] [place] [place] [address] Care Team Providers Care Airport Electrician Name Role Phone Hoang Castellanos APRN Primary Care Provider Encounter Details Date Type Department Care Team (Late st Contact Info) Description 12/28/2021 9:30 AM EDT Home Care Visit [facility] [address] [place] [phone] Renetta Ta, OT OT HOME VISIT [...] place to sleep or slept in a snf (including now)? No 12/01/2021 Sex and Gender Information Value Date Recorded Sex Assigned at Not on file Gender Identity Not on file Sexual Orientation Not on file documented as of this encounter Last Filed Vital Signs Vital Sign Reading Time Taken Comments Blood Pressure 130/80 12/28/2021 10:02 AM EDT Pulse 80 12/28/2021 10:02 AM EDT Temperature 36.9 ??C (98.5 ??F) 12/28/2021 10:02 AM E DT Respiratory Rate 18 12/28/2021 10:02 AM EDT Oxygen Saturation 94% 12/28/2021 10:02 AM EDT Inhaled Oxygen Concentration - - Weight - - Height - - Body Mass Index - - documented in this encounter Miscellaneous Notes * Home Health - Renetta Ta, OT - 12/28/2021 10:25 AM EDT PT PARTICIPATED IN OT SESSION TODAY TO GOOD EFFECT. SHE WAS ABLE TO TOLERATE IMPLEMENTATION OF A SEATED UB STRENGTHENING HEP WITH USE OF ORGANGE/LIGHT THERAPY BAND, WITH 5 EXERCISES, 10 REPS EACH (BICEP CURL, SHOULDER FLEXION, SHOULDER ABUDCTION, SHOULDER INTERNAL/EXTERNAL ROTATION, SHOULDER BLADE P INCHES/ROWS). SHE REQ MIN A AND VERB. AND TACTILE CUES FOR ACCURACY OF TECHNIQUE DUE TO PT NEW LEARNING. PLAN FOR NEXT SESSION IS TO ASSESS AND PROGRESS HEP APPROPRIATE AND CONTINUE TO ADDRESS ADL/IADL NEEDED. PT HAS PROGRESSED INDEP. WITH SHOWER LEVEL BATHING AND TOILETING. documented in this encounter Plan of Treatment [...] endurance Completed Completed this visit: Instruct in use of adaptive equipment and environmental adaptations, Instruct in energy conservation and breathing techniques and Patient/Caregiver education Upper Extremity Description: - [...] this visit: Instruct in range of motion exercises, Instruct in therapeutic strengthening program, Instruct in fine motor coordination exercises, Instruct in home program and Patient and [...] instrumental activities of daily living and leisure, documented in this encounter Care Teams Airport Electrician Relationship Specialty Start Date End Date Hoang Castellanos APRN [address] [place] [address] PCP - General Family Medicine 03/12/20 documented as of this encounter
--- OUTSIDE RECORDS SUMMARY | 2024-02-22 00:47 | XMS_ITS | Encounter Summary ---
Author Organization [facility] Address [facility] [place] [address] Care Team Providers Care Product Engineer Name Role Phone Hoang Castellanos APRN Primary Care Provider Encounter Details Date Type Department Care Team (Late st Contact Info) Description 01/06/2022 11:00 AM EDT Home Care Visit [facility] [address] [place] [phone] Meena Greenwood LPN SN HOME VISIT [...] Sign Reading Time Taken Comments Blood Pressure 148/83 01/06/2022 10:00 AM EDT Pulse 52 01/06/2022 10:00 AM EDT Temperature 36.8 ??C (98.3 ??F) 01/06/2022 10:00 AM E DT Respiratory Rate 16 01/06/2022 10:00 AM EDT Oxygen Saturation 98% 01/06/2022 10:00 AM EDT Inhaled Oxygen Concentration - - Weight - - Height - - Body Mass Index - - documented in this encounter Miscellaneous Notes * Case Communication - Meena Greenwood LPN - 01/06/2022 7:03 PM EDTStates her landlord will charge her if she plugs the toilet again. Now pt affraid to have a BM in their bathroom in fear of having to pay. Pt states the health dept is involved and discussing w the landlord. * Home Health - Meena Greenwood LPN - 01/06/2022 10:00 AM EDT CP assessment, not using o2, edema, has the pt had a BM? States her landlord will charge her if sheplugs the toilet again. Now pt afraid to have a BM in their bathroom in fear of having to pay. Pt states the health dept is involved and discussing w the landlord. documented in this encounter Plan of Treatment Not on file documented as of this encounter Visit Diagnoses Not on filedocumented in this encounter Home Health Visit - Care Plan Visit Details Visit Type -SN Home Visit Discipline -Correction Problems Problem Description Start Date Status Goals Interventions Learning/Teaching Needs - Inhalation Treatments Disciplines: , DONALD Lack of knowledge in how to administer inhalant treatments and how to care for the equipment. 11/26/2021 Active 1 goal linked to scheduled/docume nted intervention 2 goal interventions scheduled/documen shabana in this visit Medications Disciplines: DONALD BARRERA Management of home medications. 11/26/2021 Active 1 goal linked to scheduled/docume nted intervention 5 goal interventions scheduled/documen shabana in this visit Home Safety Deficit Disciplines: DONALD BARRERA Safety deficit related to Fall Risk post surgery, oxygen use, and smoking 11/26/2021 Resolved on 01/06/2022 1 goal linked to scheduled/docume nted intervention 1 goal intervention scheduled/documen shabana in this visit Pain/Comfort Deficit Disciplines: SN, SPECIALIZED LANGUAGE INSTRUCTOR Pain/comfort deficit related to back and shoulders from cervical surgery. 11/26/2021 Active 1 goal linked to scheduled/docume nted intervention 2 goal interventions scheduled/documen shabana in this visit Nutritional Concerns - Diabetes Disciplines: , DONALD Lack of knowledge related to diabetic nutritional concerns. 11/26/2021 Active 1 goal linked to scheduled/docume nted intervention 1 goal intervention scheduled/documen shabana in this visit Edema Disciplines: All Disciplines Edema - Location: bilateral lower extremities - Amount: non-pitting with compression sock use 11/26/2021 Active 1 goal linked to scheduled/docume nted intervention 2 goal interventions scheduled/documen shabana in this visit Alteration in Integumentary Status - Other Disciplines: DONALD BARRERA Patient d/c from rehab with sutures remaining in skin 12/01/2021 Resolved on 01/06/2022 - 1 problem intervention scheduled/documen shabana in this visit Chronic Obstructive Pulmonary Disease Disciplines: DONALD BARRERA, Physical Therapy, Occupational Therapy Care related to chronic obstructive pulmonary disease (includes asthma/bronchit is/emphysema). 12/11/2021 Active 1 goal linked to scheduled/docume nted intervention 6 goal interventions scheduled/documen shabana in this visit Goals Goal Associated Problem Outcome Goal Met? Visit Notes Patient/caregiver demonstrates ability to administer inhalant medications and care for inhalant equipment Description: Pt will demonstrate the ability to administer inhalant medications and care for the equipment within end of certification period Learning/Teaching Needs - Inhalation Treatments Ongoing (Interventions Implemented as Appropriate) No Patient verbalizes understanding of medication regimen Description: Pt will verbalize understanding of medication regimen within end of certification period. Medications Outcome (s) achieved Yes Patient remains safe and free from harm Description: Pt will demonstrate use of safety precautions to prevent falls and improve safety within end of certification period. Home Safety Deficit Outcome (s) achieved Yes Patient reports that pain has been reduced or controlled through verbal or nonverbal means and that measures to promote comfort are effective Description: Patient will report that pain has been reduced or controlled through verbal or nonverbal means and that measures to promote comfort are effective withinend of certification period Pain/Comfort Deficit Ongoing (Interventions Implemented as Appropriate) No Patient/caregiver demonstrates compliance with diabetic diet and appropriate diet planning to maintain blood sugar levels within normal range Description: Patient/caregiver will demonstrate compliance with diabetic diet and appropriate diet planning to maintain A1C levels Nutritional Concerns - Diabetes Outcome (s) achieved Yes Patient's edema is decreased or stabilized Description: Decrease or stabilization in amount of edema. Edema No Patient pulmonary care needs met without signs/symptoms of complications Description: Patient verbalizes comfort, ease of respiratory effort within 30 days. Chronic Obstructive Pulmonary Disease No Interventions Intervention Associated Problem/Goal Status Variance Visit Notes Teaching and Training Inhalation Description: Instruct pt in how to administer inhalant medications. Problem:Learning/Teac elbert Needs - Inhalation Treatments Goal:Patient/caregive r demonstrates ability to administer inhalant medications and care for inhalant equipment Completed Instruct Oxygen Description: Instruct pt and cg in use of home oxygen therapy including precautions to avoid smoking, static electricity, skill training program coordinator lights on gas stoves and water heaters, oil-based lubricants, and proper storage of portable tanks. Problem:Learning/Teac elbert Needs - Inhalation Treatments Goal:Patient/caregive r demonstrates ability to administer inhalant medications and care for inhalant equipment Completed Patient instructed in the use of home oxygen therapy, safe/proper use of equipment, and precautions. Patient verbalize ability to perform o2 safety. Skilled Assessment Medications Description: - Assess pt ability to manage medications. - Assess pt knowledge of drug allergies, dose/route/frequency, new or changed medications, classifications, food and drug interactions, and potential complications. Problem:Medications Goal:Patient verbalizes understanding of medication regimen Completed Instruct Side Effects Description: Instruct pt and cg to monitor for side effects and adverse reactions. Problem:Medications Goal:Patient verbalizes understanding of medication regimen Completed Instruct Medications Description: Instruct pt in medication administration, purpose, dosages, preparation, scheduling, side effects, food/drug interactions, storage, and potential complications. Problem:Medications Goal:Patient verbalizes understanding of medication regimen Completed Patient instructed on medication administration, purpose, dosages, preparation, scheduling, side effects, food/drug interactions, and potential complications. Current regimen and compliance reviewed with Patient. Patient verbalize ability to perform take meds safely. Instruct Medication Box Description: Instruct pt how to fill medication box. Problem:Medications Goal:Patient verbalizes understanding of medication regimen Completed Instruct High-Risk Meds Description: Instruct pt on high-risk medications including narcotics. Problem:Medications Goal:Patient verbalizes understanding of medication regimen Completed Safety Deficit Description: - Assess and make recommendations for increased safety. - Reinforce in use of adaptive equipment and environmental adaptations. - Activities of daily living mobility training. - Patient and caregiver education. - Assess fall risk. - Teach home safety to prevent falls. Tape or secure rugs - Add PT/OT referral/eval as appropriate Problem:Home Safety Deficit Goal:Patient remains safe and free from harm Completed Skilled Assessment Pain Description: Assess pain (with [...] comfort are effective Completed Completed this visit: Implement appropriate modality for pain control Instruct Diet Description: - Instruct on Diabetic diet and any fluid restrictions/requirement s. - Instruct on how to keep a daily log of intake of food, carbohydrates, weekly weight, and incidence of changes in diet to reflect changes in blood sugars. Problem:Nutritional Concerns - Diabetes Goal:Patient/caregive r demonstrates compliance with diabetic diet and appropriate diet planning to maintain blood sugar levels within normal range Completed Patient instructed on diabetic and fluid restrictions/requir ements. Patient verbalize ability to perform ada diet. Instruct on management of edema Description: - [...] Goal:Patient's edema is decreased or stabilized Completed Assess Edema Description: - Measure and document [...] Problem:Alteration in Integumentary Status - Other Completed Anxiety Management Description: - Instruct patient in methods to reduce anxiety including providing a calm environment with minimal disturbances, encouraging family members and friends to visit in small numbers to reduce stimulation, and routine schedule of ADLs. - Instruct caregiver on the proper administration and use of anti-anxiety medications. Problem:Chronic Obstructive Pulmonary Disease Goal:Patient pulmonary care needs met without signs/symptoms of complications Completed Respiratory Appliance Description: -Instruct patient in proper use and cleansing of if appropriate oxygenm, inhalers -Instruct in mouth care for infection prevention and optimal pulmonary function Problem:Chronic Obstructive Pulmonary Disease Goal:Patient pulmonary care needs met without signs/symptoms of complications Completed Instruct Disease Process Description: - Instruct patient in COPD process; respiratory distress; complications of exacerbation, hypoxia, and cardiac function. - Instruct patient on the types of disease: chronic bronchitis, emphysema, or asthma. Symptoms may be due to alveolar destruction or mucus. - Discuss signs/symptoms, complications, and actions to take if exacerbation occurs. -Provide patient with COPD zone tool. -Instruct patient on COPD zone tool. Problem:Chronic Obstructive Pulmonary Disease Goal:Patient pulmonary care needs met without signs/symptoms of complications Completed Assess Signs and Symptoms Description: - Assess respiratory rate and effort, lung sounds, changes in vital signs, SpO2, pain. - Assess for inability to move secretions, air hunger, reduced tolerance for activity, confusion, anxiety. Problem:Chronic Obstructive Pulmonary Disease Goal:Patient pulmonary care needs met without signs/symptoms of complications Completed Instruct Smoking Cessation Description: Instruct patient in smoking cessation rationales, strategies, and available resources. QUIT DAY 12/12/21, patch use Problem:Chronic Obstructive Pulmonary Disease Goal:Patient pulmonary care needs met without signs/symptoms of complications Completed Patient instructed on smoking cessation rationales, strategies, and available resources. Patient verbalize ability to perform less smoking. Medication Management Description: Instruct patient in medication administration, purpose, dosages, preparation, scheduling, side effects, food/drug interactions, storage, and potential complications. Problem:Chronic Obstructive Pulmonary Disease Goal:Patient pulmonary care needs met without signs/symptoms of complications Completed Home medication management demonstrated with patient. documented in this encounter Care Teams Product Engineer Relationship Specialty Start Date End Date Hoang Castellanos, RESIDENTIAL CAREGIVER [address] [place] [address] PCP - General Family Medicine 03/12/20 documented as of this encounter
--- OUTSIDE RECORDS SUMMARY | 2024-02-22 00:47 | XMS_ITS | Encounter Summary ---
Author Organization [facility] Address [facility] [place] [address] Care Team Providers Care Creative Project Manager Name Role Phone Hoang Castellanos APRN Primary Care Provider Encounter Details Date Type Department Care Team (Latest Contact Info) Description 01/21/2022 7:52 AM EDT - 01/21/2022 11:59 PM EDT [place] [facility] [place] [address] [place] [address] Cervical spinal stenosis Discharge Disposition: Home Social History Tobacco Use Types Packs/Day Years [...] on file documented as of this encounter Medications at Time of Discharge Medication Sig Dispensed Refills Start Date End Date isosorbide mononitrate CR (Imdur) 30 mg Tablet Sustained Release 24 hrIndications:Coronary artery disease involving kashia coronary artery of kashia heart without angina pectoris Take 1 tablet by mouth daily. 28 tablet 11 01/18/2022 Miconazole PowderIndications:Derm al mycosis 1 [place] [facility] [place]; Combo Route) route 2 times daily. 100 g 3 01/14/2022 nitroGLYcerin (Nitrostat) 0.4 mg Tablet, SublingualIndications: Coronary artery disease involving kashia coronary artery of kashia heart without angina pectoris Place 1 tablet under the tongue every 5 minutes as needed for Chest pain. 30 tablet 1 12/02/2021 albuteroL (Ventolin HFA) 90 mcg/actuation HFA Aerosol InhalerIndications:Chr onic obstructive pulmonary disease, unspecified COPD type INHALE 1 TO 2 PUFFS EVERY SIX HOURS NEEDED *CALL TO REFILL* 18 g 2 12/02/2021 diclofenac (Voltaren) 1 % GelIndications:Cervica lgia Apply 2-4g daily. 100 g 5 12/02/2021 Lactobacillus acidophilus 500 million cell CapsuleIndications:Cer vicalgia Take 2 capsules by mouth 2 times daily. 120 capsule 11 12/02/2021 lidocaine (Lidoderm) 5% Adhesive Patch, MedicatedIndications:C ervicalgia Place 2 patches onto affected area for 12 hours then remove for 12 hours 60 patch 5 12/01/2021 tiZANidine (Zanaflex) 4 mg TabletIndications:Cerv icalgia,Chronic pain syndrome Take 1 tablet by mouth every 6 hours as needed. 56 tablet 3 12/01/2021 polyethylene glycoL (Miralax) 17 gram Powder in Packet Take 17 g by mouth daily as needed. 14 each 11/04/2021 senna-docusate (Pericolace) 8.6-50 mg Tablet Take 2 tablets by mouth 2 times daily. 60 tablet 11 11/04/2021 acetaminophen (Tylenol) 500 mg Tablet Take 2 tablets by mouth every 6 hours. 30 tablet 1 11/04/2021 aspirin EC 81 mg Tablet, Delayed Release (E.C.) Take 1 tablet by mouth daily. 30 tablet 5 11/09/2021 ferrous sulfate (FeroSuL) 325 mg (65 mg iron) Tablet Take 1 tablet by mouth three times a week. 12 tablet 11 10/28/2021 atorvastatin (Lipitor) 40 mg TabletIndications:Hype rlipidemia, unspecified hyperlipidemia type TAKE ONE (1) TABLET BY MOUTH EVERY DAY 28 tablet 11 09/01/2021 omeprazole (PriLOSEC) 20 mg Capsule, Delayed Release(E.C.)Indicatio ns:Gastroesophageal reflux disease TAKE ONE (1) CAPSULE BY MOUTH TWICE A DAY 30 MIN BEFORE BREKAFAST AND IN THE EVENING 56 capsule 11 09/01/2021 clonazePAM (KlonoPIN) 0.5 mg Tablet Take 0.5 mg by mouth nightly. 05/20/2021 Miscellaneous Medical Supply MiscIndications:Dizzin ess,Chronic right-sided low back pain without sciatica 1 walker on wheels with seat 1 each 03/12/2020 multivitamin (THERAGRAN) Tablet Take 1 tablet by mouth daily. MARIJUANA ORAL Take 1 Dose by mouth 2 times daily. Vraylar 1.5 mg Capsule 01/18/202203/23 fluticasone propion-salmeteroL (ADVAIR) 500-50 mcg/dose Disk with Device Inhale 1 puff into the lungs every 12 hours. 04/12/2022 prazosin (Minipress) 2 mg Capsule Take 3 capsules by mouth nightly. 84 capsule 11 09/29/2021 04/14/2023 cholecalciferol, Vitamin D3, (Vitamin D3) 1,000 unit Tablet Take 3 tabs daily 270 tablet 3 06/22/2021 05/10/2022 calcium citrate (Calcitrate) 200 mg (950 mg) Tablet Take 2 tabs three times daily 540 tablet 3 06/22/2021 05/10/2022 lamoTRIgine (LaMICtal) 200 mg Tablet TAKE ONE (1) TABLET BY MOUTH EVERY DAY 28 tablet 11 06/09/2021 05/07/2022 levothyroxine (Synthroid) 50 mcg Tablet TAKE ONE (1) TABLET BY MOUTH EVERY DAY 28 tablet 11 06/09/2021 05/07/2022 sertraline (ZOLOFT) 100 mg Tablet Take 2 tablets by mouth 2 times daily. 01/27/2020 04/14/2023 nicotine (Nicoderm CQ) 14 mg/24 hr Patch 24 hrIndications:Cervical jin Change 1 patch on the skin daily. 28 patch 3 12/01/2021 03/19/2022 tiotropium bromide (Spiriva Respimat) 2.5 mcg/actuation MistIndications:Asthma with acute exacerbation, unspecified asthma severity, unspecified whether persistent Inhale 2 puffs into the lungs nightly. 12 g 3 03/23/2021 03/19/2022 Vitamin B-12 1,000 mcg TabletIndications:B12 deficiency TAKE ONE (1) TABLET BY MOUTH ONCE WEEKLY (PM) 4 tablet 11 03/17/2021 02/15/2022 documented as of this encounter Plan of Treatment Not on file documented as of this encounter Procedures Procedure Name Priority Date/Time Associated Diagnosis Comments XR CERVICAL SPINE 2 OR 3 VIEWS Routine 01/21/2022 8:08 AM EDT Cervical spinal stenosis documented in this encounter Results * XR Cervical Spine [...] who have questions please contact the health direct care staffer that requested your imaging first. ? Electronically signed by: Naomi Ricci MD, [facility] ([phone]), at 01/21/2022 11:34 AM Narrative 01/21/2022 11:34 [...] cervical lateral mass screws and rods at [id number] for subtle differences in projection. No hardware [...] patients who have questions please contactthe health direct care staffer that requested your imaging first. Electronically signed by: Naomi Ricci MD, [facility]([phone]), at 01/21/2022 11:34 AM Campos Puente MD IMG DX ORDERABLES documented in this encounter Visit Diagnoses Diagnosis Cervical spinal stenosis Spinal stenosis in cervical region documented in this encounter Care Teams Creative Project Manager Relationship Specialty Start Date End Date Hoang Castellanos, UNDERGROUND ROOF BOLTER [address] [place] [address] PCP - General Family Medicine 03/12/20 documented as of this encounter
--- OUTSIDE RECORDS SUMMARY | 2024-02-22 00:47 | XMS_ITS | Encounter Summary ---
Author Organization [facility] Address [facility] [place] [address] Care Team Providers Care Medical Transcriber Name Role Phone Hoang Castellanos APRN Primary Care Provider [phone] Encounter Details Date Type Department Care Team (Latest Contact Info) Description 01/18/2022 12:30 PM EDT Home Care Visit [facility] [address] [place] [phone] Renetta Ta, OT OT DISCIPLINE DISCHARGE Social History Tobacco Use Types [...] Sign Reading Time Taken Comments Blood Pressure 130/90 01/18/2022 1:09 PM EDT Pulse 55 01/18/2022 1:09 PM EDT Temperature 36.9 ??C (98.4 ??F) 01/18/2022 1:09 PM ED T Respiratory Rate 16 01/18/2022 1:09 PM EDT Oxygen Saturation 99% 01/18/2022 1:09 PM EDT Inhaled Oxygen Concentration - - Weight - - Height - - Body Mass Index - - documented in this encounter Miscellaneous Notes * Case Communication - Renetta Ta, OT - 01/18/2022 1:25 PM EDTPT PRESENTS TO OT DC VIST TODAY WITH HER BULLET ASSEMBLY PRESS OPERATOR CAREGIVER, BRITTA, AND HER SPOUSE. SHE IS APPROPRIATE FOR HH OT DC AT THIS POINT IN TIME SHE HAS MET HER OT GOALS INCLUDING INCREASED SAFETY AND INDEP. WITH ADL, IADL, AND UE FUNCTION. SHE HAS CHRONIC RIGHT SHOULDER PAIN, HOWEVER, HER AROM HAS IMPROVED AND SHE IS INDEP WITH HER OT HEP WHICH SHE WILL CONTINUE AT HOME POST OT DC VISIT TODAY. SHE HAS APPROPRIATE DME AND AE FOR CONTINUED SAFE ADL AND SHE WILL CONTINUE TO HAVE BULLET ASSEMBLY PRESS OPERATOR CARE SUPPORTS NEEDED. PT IS AGREEABLE WITH OT POC. * Home Health - Renetta Ta OT - 01/18/2022 1:20 PM EDT PT PRESENTS TO OT DC VIST TODAY WITH HER BULLET ASSEMBLY PRESS OPERATOR CAREGIVER, BRITTA, AND HER SPOUSE. SHE IS APPROPRIATE FOR HH OT DC AT THIS POINT IN TIME SHE HAS MET HER OT GOALS INCLUDING INCREASED SAFETY AND INDEP. WITH ADL, IADL, AND UE FUNCTION. SHE HAS CHRONIC RIGHT SHOULDER PAIN, HOWEVER, HER AROM HAS IMPROVED AND SHE IS INDEP WITH HER OT HEP WHICH SHE WILL CONTINUE AT HOME POST OT DC VISIT TODAY. SHE HAS APPROPRIATE DME AND AE FOR CONTINUED SAFE ADL AND SHE WILL CONTINUE TO HAVE JAIL CARE SUPPORTS NEEDED. PT IS AGREEABLE WITH OT POC AND PCP HAS BEEN NOTIFIED. documented in this encounter Plan of Treatment Not on file documented as of this encounter Visit Diagnoses Not on filedocumented in this encounter Home Health Visit - Care Plan Visit Details Visit Type -OT Discipline Judith bar Discipline -Occupational Therapy Problems Problem Description Start [...] related precautions within 30 days. Decreased ADLs Outcome (s) achieved Yes Patient demonstrates improved endurance for activities of [...] within 30 days. Decreased Upper Extremity Function Outcome (s) achieved Yes Patient improves functional mobility Description: - Improve [...] related precautions within 30 days. Decreased IADLs Outcome (s) achieved Yes Interventions Intervention Associated [...] in self-care including bathing, toileting, personal cares, grooming and meal preparation, Instruct in use of adaptive equipment and environmental adaptations, Activities of daily living mobility training with transfer and walker, Assess and make recommendations for increased safety, Instruct in energy conservation and breathing techniques [...] in therapeutic strengthening program, Instruct in home program, Patient and caregiver education and Teach home safety to prevent falls IADLs Interventions Description: - Instruct in instrumental [...] visit: Instruct in instrumental activities of daily living, Instruct in use of adaptive equipment and environmental adaptations, Activities of daily living mobility training with transfer and walker, Assess and make recommendations for increased safety, Instruct in energy conservation and breathing techniques and Patient and caregiver education documented in this encounter Care Teams Medical Transcriber Relationship Specialty Start Date End Date Hoang Castellanos APRN [address] [facility] [place] [address] PCP - General Family Medicine 03/12/20 documented as of this encounter
--- OUTSIDE RECORDS SUMMARY | 2024-02-22 00:47 | XMS_ITS | Encounter Summary ---
Author Organization [facility] Address [facility] [place] [address] Care Team Providers Care Hot Patcher Name Role Phone Hoang Castellanos APRN Primary Care Provider Encounter Details Date Type Department Care Team (Late st Contact Info) Description 12/11/2021 2:15 PM EDT Home Care Visit [facility] [address] [place] [phone] Bárbara Morfin, RN SN HOME VISIT [...] slept in a residential (including now)? No 12/01/2021 Sex and Gender Information Value Date Recorded Sex Assigned at Not on file Gender Identity Not on file Sexual Orientation Not on file documented as of this encounter Last Filed Vital Signs Vital Sign Reading Time Taken Comments Blood Pressure 152/88 12/11/2021 12:09 PM EDT Pulse 86 12/11/2021 12:09 PM EDT Temperature 36.8 ??C (98.2 ??F) 12/11/2021 12:09 PM E DT Respiratory Rate - - Oxygen Saturation - - Inhaled Oxygen Concentration - - Weight - - Height - - Body Mass Index - - documented in this encounter Miscellaneous Notes * Home Health - Bárbara Morfin RN - 12/11/2021 1:12 PM EDT CP assess and inhaler use/management, smoking QUIT DAY 12/12/21 with patch use and list of tools, ptwrote out a set of goals for the week: 6-16 ounce bottle of water a day, 1 glass of prune juice to prevent further constipation, pt inquiring with senior solutions and landlord about additional assistance in the home, GI/ assess- call md if still decreased urine output for possible urainalysis, assess oxygen nocturnal use and anxiety about having tank in home, pt may need assistance calling [employer] to remove empty tank. documented in this encounter Plan of Treatment Not on file documented as of this encounter Visit Diagnoses Not on filedocumented in this encounter Home Health Visit - Care Plan Visit Details Visit Type -SN Home Visit Discipline -Long Term Problems Problem Description Start Date Status Goals Interventions Learning/Teaching Needs - Inhalation Treatments Disciplines: DONALD BARRERA Lack of knowledge in how to administer inhalant treatments and how to care for the equipment. 11/26/2021 Active 1 goal linked to scheduled/docume nted intervention 1 goal intervention scheduled/documen leela in this visit Medications Disciplines: DONALD BARRERA Management of home medications. 11/26/2021 Active 1 goal linked to scheduled/docume nted intervention 1 goal intervention scheduled/documen leela in this visit Pain/Comfort Deficit Disciplines: DONALD BARRERA Pain/comfort deficit related to back and shoulders from cervical surgery. 11/26/2021 Active 1 goal linked to scheduled/docume nted intervention 1 goal intervention scheduled/documen leela in this visit Nutritional Concerns - Diabetes Disciplines: DONALD BARRERA Lack of knowledge related to diabetic nutritional concerns. 11/26/2021 Active 1 goal linked to scheduled/docume nted intervention 1 goal intervention scheduled/documen leela in this visit Edema Disciplines: All Disciplines Edema - Location: bilateral lower extremities - Amount: non-pitting with compression sock use 11/26/2021 Active 1 goal linked to scheduled/docume nted intervention 1 goal intervention scheduled/documen leela in this visit Alteration in Integumentary Status - Other Disciplines: DONALD BARRERA Patient d/c from rehab with sutures remaining in skin 12/01/2021 Active - 1 problem intervention scheduled/documen leela in this visit Chronic Obstructive Pulmonary Disease Disciplines: DONALD BARRERA, Physical Therapy, Occupational Therapy Care related to chronic obstructive pulmonary disease (includes asthma/bronchiti s/emphysema). 12/11/2021 Active 1 goal linked to scheduled/docume nted intervention 3 goal interventions scheduled/documen leela in this visit Goals Goal Associated Problem Outcome Goal Met? Visit Notes Patient/caregiver demonstrates ability to administer inhalant medications and care for inhalant equipment Description: Pt will demonstrate the ability to administer inhalant medications and care for the equipment within end of certification period Learning/Teaching Needs - Inhalation Treatments No Patient verbalizes understanding of medication regimen Description: Pt will verbalize understanding of medication regimen within end of certification period. Medications No Patient reports that pain has been reduced or controlled through verbal or nonverbal means and that measures to promote comfort are effective Description: Patient will report that pain has been reduced or controlled through verbal or nonverbal means and that measures to promote comfort are effective withinend of certification period Pain/Comfort Deficit No Patient/caregiver demonstrates compliance with diabetic diet and appropriate diet planning to maintain blood sugar levels within normal range Description: Patient/caregiver will demonstrate compliance with diabetic diet and appropriate diet planning to maintain A1C levels Nutritional Concerns - Diabetes No Patient's edema is decreased or stabilized [...] including precautions to avoid smoking, static electricity, menhaden vessel pilot lights on gas stoves and water heaters, oil-based lubricants, and proper storage of portable tanks. Problem:Learning/Teac elbert Needs - Inhalation Treatments Goal:Patient/caregive r demonstrates ability to administer inhalant medications and care for inhalant equipment Completed Reviewed oxygen safety and relieved anxiety about nocturnal use with no smoking in home. Instruct Side Effects Description: Instruct pt and cg to monitor for side effects and adverse reactions. Problem:Medications Goal:Patient verbalizes understanding of medication regimen Pain Management Description: Instruct in pharmacologic and nonpharmacologic pain management techniques. Problem:Pain/Comfort Deficit Goal:Patient reports that pain has been reduced or controlled through verbal or nonverbal means and that measures to promote comfort are effective Completed Pt will start using lidocaine patches below shoulder at night. Instruct Diet Description: - Instruct on Diabetic [...] blood sugar levels within normal range Completed Pt states goal is to drink 6 -16 ounce water bottles a day, add prune juice 8 ounces a day, and apple juice. Assess Edema Description: - Measure and document degree of edema. - Obtain patient weight (if appropriate). - Assess effectiveness of positioning and medication use. - Initiate changes as patient status dictates. - Assess for risk of infection. - Assess for underlying cause of edema. - Assess fluid balance and other systems such as respiratory status Problem:Edema Goal:Patient's edema is decreased or stabilized Completed non-pitting edema 1+ noted Skin Integrity Description: Remove any remaining sutures, these should have been removed prior to rehab discharge Problem:Alteration in Integumentary Status - Other Completed No remainin sutures to remove, surgical incision is healed. Instruct Disease Process Description: - Instruct patient [...] needs met without signs/symptoms of complications Completed Provided pt with COPD zone tool and pt verbally understood when to call 911. Instruct Smoking Cessation Description: Instruct patient in smoking cessation rationales, strategies, and available resources. QUIT DAY 12/12/21, patch use Problem:Chronic Obstructive Pulmonary Disease Goal:Patient pulmonary care needs met without signs/symptoms of complications Completed Confirmed quit day is 12/12/21, pt agreed to use patch and write down distraction tools when she has an urge Medication Management Description: Instruct patient in medication administration, purpose, dosages, preparation, scheduling, side effects, food/drug interactions, storage, and potential complications. Problem:Chronic Obstructive Pulmonary Disease Goal:Patient pulmonary care needs met without signs/symptoms of complications Completed pt states she takes: purple one each morning, 2 puffs yellow Albuterol one each morning Green Spireva in evening Alubuterol as needed: pt reports s/s of asthma attack before taking. Oxygen nocturnally use, educated oxygen safety and use with the wall heater is ok, no smoking in house. documented in this encounter Care Teams Hot Patcher Relationship Specialty Start Date End Date Hoang Castellanos APRN [address] [place] [address] PCP - General Family Medicine 03/12/20 documented as of this encounter
--- OUTSIDE RECORDS SUMMARY | 2024-02-22 00:47 | XMS_ITS | Encounter Summary ---
Author Organization [facility] Address [facility] [place] [address] Care Team Providers Care Technical Data Analyst Name Role Phone Hoang Castellanos APRN Primary Care Provider Encounter Details Date Type Department Care Team (Late st Contact Info) Description 12/12/2021 3:00 PM EDT Home Care Visit [facility] [address] [place] [phone] Dhruv Balderrama, PT PT HOME VISIT Social History Tobacco [...] [place] [facility] (including now)? No 12/01/2021 Sex and Gender Information Value Date Recorded Sex Assigned at Not on file Gender Identity Not on file Sexual Orientation Not on file documented as of this encounter Last Filed Vital Signs Vital Sign Reading Time Taken Comments Blood Pressure 146/85 12/12/2021 3:50 PM EDT Pulse - - Temperature - - Respiratory Rate - - Oxygen Saturation - - Inhaled Oxygen Concentration - - Weight - - Height - - Body Mass Index - - documented in this encounter Miscellaneous Notes * Home Health - Dhruv Balderrama, PT - 12/12/2021 3:40 PM EDT Pt demonstrates good HEP compliance. She was able to complete all HEP exercises from memory withouthaving to look at written handout. She demonstrates improved ther ex tolerance this visit. Pt recently obtained hospital bed and is now IND with bed mobility. Her BUE function is returning as she is now able to lift her arms above her head. She will continue to benefit from skilled PT services to fu rther improve her strength and endurance. documented in this encounter Plan of Treatment [...] goal intervention scheduled/document ed in this visit Gait Deficit Disciplines: PT - Decreased ambulation [...] for pain management within 60 days. Pain No Patient improves ambulation and quality of gait [...] Intervention Associated Problem/Goal Status Variance Visit Notes Pain Management Description: - Implement appropriate modality for pain control. - Implement therapeutic exercise program for pain control. - Instruct Patient and Caregiver in pain management. - Perform manual therapy. Problem:Pain Goal:Patient reports decreased pain and/or increased functional activity Completed Completed this visit: Implement therapeutic exercise program for pain control Gait Deficit Description: Gait training Therapeutic exercise Therapeutic activities Balance training Problem:Gait Deficit Goal:Patient improves ambulation and quality of gait Completed Decreased Strength Description: - Therapeutic exercise. - Establish home exercise program. - Therapeutic Activities Problem:Decreased Strength Goal:Patient increases strength and/or functional mobility Completed Completed this visit: Therapeutic exercise Home Exercise Program Description: - Establish home [...] frequency Completed Completed this visit: Therapeutic exercise documented in this encounter Care Teams Technical Data Analyst Relationship Specialty Start Date End Date Hoang Castellanos, TWITCHELL OPERATOR [address] [place] [address] PCP - General Family Medicine 03/12/20 documented as of this encounter
--- OUTSIDE RECORDS SUMMARY | 2024-02-22 00:47 | XMS_ITS | Encounter Summary ---
Author Organization [facility] [place] [address] Care Team Providers Care Cfa Name Role Phone Hoang Castellanos APRN Primary Care Provider [phone] Reason for Referral * Physical Therapy (Routine) - Closed Specialty Diagnoses / Procedures Referred By Contac t Referred To Contact Diagnoses Cervical spinal stenosis Freddy Dolan PA [facility] [place] [address] Physical Therapy, [address] [address] Referral ID Status Reason Start Date Expiration Date V isits Requested Visits Authorized [id number] Closed Evaluate and Treat 01/21/2022 07/20/2022 12 12 Encounter Details Date Type Department Care Team (Late st Contact Info) Description 01/21/2022 9:00 AM EDT [place] [address] Freddy Dolan PA [facility] [place] [address] Cervical spinal stenosis; Cervicalgia Social History Tobacco Use Types Packs/Day Years [...] Sign Reading Time Taken Comments Blood Pressure 124/67 01/21/2022 9:03 AM EDT Pulse 53 01/21/2022 9:03 AM EDT Temperature 36.6 ??C (97.9 ??F) 01/21/2022 9:03 AM ED T Respiratory Rate 18 01/21/2022 9:03 AM EDT Oxygen Saturation 96% 01/21/2022 9:03 AM EDT Inhaled Oxygen Concentration - - Weight 97.4 kg (214 lb 12.8 oz) 01/21/2022 9:03 AM EDT Height 160 cm (5' 3) 01/21/2022 9:03 AM EDT Body Mass Index 38.05 01/21/2022 9:03 AM EDT documented in this encounter Progress Notes * Freddy Dolan PA - 01/21/2022 9:00 AM EDT Name: Jeannie Rico : 1960 PCP: Hoang Castellanos APRN REF: Gurjit Bass Date of Service: 01/21/2022 CHIEF COMPLAINT: Postoperative follow up HISTORY: Jeannie Rico presents in FU s/p C5-6 PCDF (Ball 10/30/21) Ms. Rico reports that she is doing well. She reports her neck pain and incidentally her back pain improved following surgery. Her neck ROM is also better. Pain down the left arm has improved immensely and coordination has improved too. She can stand up straighter (better posture). Gait is about the same. Using a walker at home. Still having pain down the R arm. Incontinence unchanged. Home PT through [facility] just ended. PHYSICAL EXAM: BP 124/67 (BP Location (NBP): Left arm, Patient Position: Sitting, BP Cuff Sizes: Large Adult (32-43 cm)) Pulse 53 Temp 36.6 ??C (97.9 ??F) (Temporal) Resp 18 Ht 160 cm (5' 3) Wt 97.4 kg (214 lb 12.8 oz) LMP (LMP Unknown) SpO2 96% BMI 38.05 kg/m?? . 61 y.o. female in no cardiorespiratory distress Awake and alert conversing appropriately Strength is subtly weaker on the R compared to the L diffusely R orchid hand is 4/5 and R HF is 4/5 otherwise no focal motor deficits Sensation intact to LT x4 extremities DTRs are brisk bilaterally at the patellars Cruz's positive on the R and negative on the L Seated in wheelchair, gait not assessed Posterior cervical incision is well healed IMAGING & OTHER RESULTS: XR cervical spine 01/21/2022 Expected postop changes without evidence of hardware complication ASSESSMENT: 61 yo F s/p C5-6 PCDF Presenting for routine 3 month FU Satisfactory clinical and radiologic postoperative course with improvement in preoperative symptomsand no radiographic evidence of hardware complication PLAN: Referral provided to continue PT FU in 4 months with repeat x-rays Freddy Dolan PA-C, MS Physician [facility] of Neurosurgery [address] [address] documented in this encounter Plan of Treatment Scheduled Referrals Name Type Priority Associated Diagnoses Orde r Schedule Referral to Physical Therapy Outpatient Referral Routine Cervical spinal stenosis Ordered: 01/21/2022 documented as of this encounter Visit Diagnoses Diagnosis Cervical spinal stenosis Spinal stenosis in cervical region Cervicalgia documented in this encounter Care Teams Cfa Relationship Specialty Start Date End Date Hoang Csatellanos, BENCH CARPENTER [address] [place] [address] PCP - General Family Medicine 03/12/20 documented as of this encounter
--- OUTSIDE RECORDS SUMMARY | 2024-02-22 00:47 | XMS_ITS | Encounter Summary ---
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 Social History Tobacco Use Types Packs/Day Years [...] encounter Miscellaneous Notes * Telephone Encounter - Earlene Head, ISELA - 01/18/2022 1:45 PM EDT Isosorbide mononitrate CR (Imdur) 30 mg Tablet, sustained release 24 hr, take one tablet by mouth every day Last Prescription Fill Date: 02/17/2021 Number Dispensed and Refills: 21/06 Last Related Office Visit: 12/01/2021 Upcoming Appointment: 03/10/2022 Lab Results Component Value Date HGB 13.0 [...] as of this encounter Visit Diagnoses Diagnosis 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
--- OUTSIDE RECORDS SUMMARY | 2024-02-22 00:47 | XMS_ITS | Encounter Summary ---
Author Organization [facility] [place] [address] Care Team Providers Care Solutions Consultant Name Role Phone Hoang Castellanos APRN Primary Care Provider [phone] Reason for Visit * Home Health Care (Routine) - Closed Specialty Diagnoses / Procedures Referred By Vanita t Referred To Contact Diagnoses Cervical spondylosis with myelopathy Adri Moe MD [address] [place] [address] [address] Referral ID Status Reason Start Date Expiration Date V isits Requested Visits Authorized [id number] Closed Consult, Test & Treat 11/24/2021 11/24/[phone] Encounter Details Date Type Department Care Team (Late st Contact Info) Description 12/02/2021 9:00 AM EDT Home Care Visit [address] [phone] Renetta Ta, OT OT EVALUATION Social History Tobacco Use Types Packs/Day Years [...] Reading Time Taken Comments Blood Pressure 138/80 12/02/2021 9:45 AM EDT Pulse 60 12/02/2021 9:45 AM EDT Temperature 36.3 ??C (97.4 ??F) 12/02/2021 9:45 AM ED T Respiratory Rate 16 12/02/2021 9:45 AM EDT Oxygen Saturation 98% 12/02/2021 9:45 AM EDT Inhaled Oxygen Concentration - - Weight - - Height - - Body Mass Index - - documented in this encounter Miscellaneous Notes * Case Communication - Renetta Ta OT - 12/02/2021 10:33 AM EDTPT SEEN FOR OT EVAL TODAY. SHE REQ MIN A TO [facility] FOR ALL ADL AND IADL WITH USE OF WALKER AND DME. SHE HAD OT INSTALL A NEW TUB SHOWER BENCH TODAY AND REQ MIN A FOR SAFE USE AND WILL NEED ONGOING INTERVENTION AND SHOWER ASSIST. SHE ALSO REQ MIN A FOR LB/UB DRESSING, HYGIENE/GROOMING, HAIR CARE, AND DONNING COMPRESSION STOCKINS. ED. WAS PROVIDED TO SPOUSE FOR EASIER DONNING OF COMPRESSION STOCKINGS TODAY WITH FAIR TEACHBACK. SHE WILL REQ FURTHER OT ED TO PROGRESS SAFETY AND INDEP WITH ADL/IAL WITH USE OF COMPENSATORY STRATEGIES, AE/DME,AND A HEP FOR UE STRENGTH/FUNCTION. * Home Health - Renetta Ta OT - 12/02/2021 10:27 AM EDT OT WAS SEEN FOR OT ADD ON EVAL TO ASSESS FOR SAFETY AND INDEP WITH ADL AND IADL POST OP. SHE PRESENTS WITH BILATERAL UE WEAKNESS, LIMITED ROM, AND COORDINATION DEFECITS IMPACTING PARTICIPATION WITH ADL, IADL, AND CHOICE OCCUPATIONS. SHE HAS SEVERAL PIECES OF DME/AE BUT REQ SKILLED ED. ON SAFE AND APPROPRIATE USE FOR ADL/IADL. SHE ALSO WOULD BENEFIT FROM IMPLEMENTATION OF A HEP TO ADDRESS UE DEFECITS NOTED ABOVE. SHE IS AGREEABLE TO OT POC. OT TO FOLLOW 1X/WEEK FOR 6 WEEKS FOR HEP AND ADL/IADL INTERVENTION. documented in this encounter Plan of Treatment Not on file documented as of this encounter Visit Diagnoses Not on filedocumented in this encounter Care Teams Solutions Consultant Relationship Specialty Start Date End Date Hoang Castellanos APRN [address] [place] [address] PCP - General Family Medicine 03/12/20 documented as of this encounter
--- OUTSIDE RECORDS SUMMARY | 2024-02-22 00:47 | XMS_ITS | Encounter Summary ---
Author Organization [facility] Address [facility] [address] Care Team Providers Care Hydraulic Miner Blasting Name Role Phone Hoang Castellanos APRN Primary Care Provider Encounter Details Date Type Department Care Team (Late st Contact Info) Description 12/30/2021 10:00 AM EDT Home Care Visit [facility] Home Health [address] [place] [phone] Samira Gasca LNA [facility] HOME VISIT Social History Tobacco Use Types [...] in a senior care (including now)? No 12/01/2021 Sex and Gender [...] Status Goals Interve ntions Personal Care Disciplines: MANAGER MARKETING COMMUNICATION Aide to assist patient with personal cares as directed. 11/26/2021 Active 1 goal linked to scheduled/documen leela intervention 6 goal interventions scheduled/document ed in this visit Activity Disciplines: MANAGER MARKETING COMMUNICATION Aide to assist patient activity tasks as [...] ordered Scheduled with variance N/A Transfers Description: MANAGER MARKETING COMMUNICATION assist with transfers using Tub chair with extension Problem:Activity Goal:Patient activity needs will be completed by aide as ordered Completed Assist with Ambulation Description: MANAGER MARKETING COMMUNICATION assist with ambulation using walker or wheelchair Problem:Activity Goal:Patient activity needs will be completed by aide as ordered Completed Assist Repositioning Description: Assist with repositioning patient. Problem:Activity Goal:Patient activity needs will be completed by aide as ordered Scheduled with variance N/A documented in this encounter Care Teams Hydraulic Miner Blasting Relationship Specialty Start Date End Date Hoang Castellanos, SPECIAL EVENTS DRIVER [address] [place] [address] PCP - General Family Medicine 03/12/20 documented as of this encounter
--- OUTSIDE RECORDS SUMMARY | 2024-02-22 00:47 | XMS_ITS | Encounter Summary ---
Author Organization [facility] Address [facility] [place] [address] Care Team Providers Care Marketing Information Analyst Name Role Phone Hoang Castellanos APRN Primary Care Provider Encounter Details Date Type Department Care Team (Late st Contact Info) Description 01/15/2022 9:00 AM EDT Home Care Visit [facility] [address] [place] [id number] Renetta Ta, OT OT HOME VISIT [...] in a nursing home (including now)? No 12/01/2021 Sex and Gender Information Value Date Recorded Sex Assigned at Not on file Gender Identity Not on file Sexual Orientation Not on file documented as of this encounter Last Filed Vital Signs Vital Sign Reading Time Taken Comments Blood Pressure - - Pulse 70 01/15/2022 9:50 AM EDT Temperature - - Respiratory Rate 18 01/15/2022 9:50 AM EDT Oxygen Saturation 95% 01/15/2022 9:50 AM EDT Inhaled Oxygen Concentration - - Weight - - Height - - Body Mass Index - - documented in this encounter Miscellaneous Notes * Home Health - Renetta Ta OT - 01/15/2022 9:58 AM EDT PT PARTICIPATED IN HH OT SESSION TODAY WITH FOCUS ON IADL MANAGEMENT INCLUDING LAUNDRY, HEATING MEALS, SAFE USE OF MICROWAVE, SAFE USE OF ROLLING WALKER IN KITCHEN, TRANSFERS, AND SAFE USE OF ROLLATOR SEAT FOR PACING AND ENERGY CONSERVATION TECHNIQUES. PT IS PROGRESSING WELL BUT WILL REQ FURTHER OTVISITS TO ENSURE SAFE CARRYOVER OF NEWLY LEARNED TECHNIQUES FOR ADL AND IADL MANAGEMENT. documented in this encounter Plan of Treatment Not on file documented as of this encounter Visit Diagnoses Not on filedocumented in this encounter Home Health Visit - Care Plan Visit Details Visit Type -OT Home Visit Discipline -Occupational Therapy Problems Problem Description Start Date Status Goals Interve ntions Decreased IADLs Disciplines: OT Decreased independence in instrumental meal preparation, housekeeping, laundry and leisure 12/02/2021 Active 1 goal linked to scheduled/documen leela intervention 1 goal intervention scheduled/document ed in this visit Goals Goal Associated Problem Outcome Goal Met? Visit Notes Patient improves functional mobility Description: - Improve [...] Intervention Associated Problem/Goal Status Variance Visit Notes IADLs Interventions Description: - Instruct in instrumental [...] education documented in this encounter Care Teams Marketing Information Analyst Relationship Specialty Start Date End Date Hoang Castellanos, ACCOUNT PROCESSOR [address] [place] [address] PCP - General Family Medicine 03/12/20 documented as of this encounter
--- OUTSIDE RECORDS SUMMARY | 2024-02-22 00:47 | XMS_ITS | Encounter Summary ---
Author Organization [facility] Address [facility] [place] [address] Care Team Providers Care Manager Clinical Name Role Phone Hoang Castellanos APRN Primary Care Provider Encounter Details Date Type Department Care Team (Late st Contact Info) Description 12/23/2021 1:30 PM EDT Home Care Visit [facility] [address] [place] [phone] Bárbara Morfin, RN SN HOME VISIT [...] slept in a longterm (including now)? No 12/01/2021 Sex and Gender Information Value Date Recorded Sex Assigned at Not on file Gender Identity Not on file Sexual Orientation Not on file documented as of this encounter Last Filed Vital Signs Vital Sign Reading Time Taken Comments Blood Pressure 158/88 12/23/2021 11:33 AM EDT Pulse 80 12/23/2021 11:33 AM EDT Temperature 36.9 ??C (98.4 ??F) 12/23/2021 11:33 AM E DT Respiratory Rate - - Oxygen Saturation 97% 12/23/2021 11:33 AM EDT Inhaled Oxygen Concentration - - Weight - - Height - - Body Mass Index - - documented in this encounter Miscellaneous Notes * Home Health - Bárbara Morfin RN - 12/23/2021 11:29 AM EDT POC reviewed as pt expressed once [facility] is done, [facility] will take over care. Cleanliness and hygiene reviewed to prevent infection, new rib pain assessment from bending over, pt considering muscle relaxant as advised by PCP. was back in hospital for 4 days and she had a lot of anxiety about it, continues to smoke Has number to call oxygen company to remove tank, pt is not using nocturnally. documented in this encounter Plan of Treatment Not on file documented as of this encounter Visit Diagnoses Not on filedocumented in this encounter Home Health Visit - Care Plan Visit Details Visit Type -SN Home Visit Discipline -Halfway Problems Problem Description Start Date Status Goals Interventions Learning/Teaching Needs - Inhalation Treatments Disciplines: SN, HAND SAMPLE MAKER Lack of knowledge in how to administer inhalant treatments and how to care for the equipment. 11/26/2021 Active 1 goal linked to scheduled/docume nted intervention 1 goal intervention scheduled/documen leela in this visit Medications Disciplines: , DONALD Management of home medications. 11/26/2021 Active 1 goal linked to scheduled/docume nted intervention 1 goal intervention scheduled/documen leela in this visit Home Safety Deficit Disciplines: DONALD BARRERA Safety deficit related to Fall Risk post surgery, oxygen use, and smoking 11/26/2021 Active 1 goal linked to scheduled/docume [...] goal intervention scheduled/documen leela in this visit Goals Goal [...] end of certification period. Medications No Patient remains safe and free from harm Description: Pt will demonstrate use of safety precautions to prevent falls and improve safety within end of certification period. Home Safety Deficit No Patient reports that pain has been [...] including precautions to avoid smoking, static electricity, storage architect lights on gas stoves and water heaters, oil-based lubricants, and proper storage of portable tanks. Problem:Learning/Teac elbert Needs - Inhalation Treatments Goal:Patient/caregive r demonstrates ability to administer inhalant medications and care for inhalant equipment Completed PTwill call to remove Oxygen tank, pt does not report using and smoking still in home Instruct Medications Description: Instruct pt in medication administration, purpose, dosages, preparation, scheduling, side effects, food/drug interactions, storage, and potential complications. Problem:Medications Goal:Patient verbalizes understanding of medication regimen Completed Inhaler found on floor, educated about storage Safety Deficit Description: - Assess and make [...] remains safe and free from harm Completed Flies present in home, has spray bug stuff, pt has researched getting cleaning bombs but needs to be out of the house for 4 hours. [facility] looking for a weekly boat cleaner but needs a deep clean first. Pain Management Description: Instruct in pharmacologic and [...] Goal:Patient's edema is decreased or stabilized Completed No edema noted Skin Integrity Description: Remove any remaining sutures, these should have been removed prior to rehab discharge Problem:Alteration in Integumentary Status - Other Scheduled Instruct Smoking Cessation Description: Instruct patient in smoking cessation rationales, strategies, and available resources. QUIT DAY 12/12/21, patch use Problem:Chronic Obstructive Pulmonary Disease Goal:Patient pulmonary care needs met without signs/symptoms of complications Completed Pt has quit for three weeks while in rehab didn't even think about it, pt not using patches and has not utilize the hotline number documented in this encounter Care Teams Manager Clinical Relationship Specialty Start Date End Date Hoang Castellanos, SCIENCE WRITER [address] [place] [address] PCP - General Family Medicine 03/12/20 documented as of this encounter
--- OUTSIDE RECORDS SUMMARY | 2024-02-22 00:47 | XMS_ITS | Encounter Summary ---
Author Organization [facility] Address [facility] [place] [address] Care Team Providers Care Analytical Laboratory Technician Name Role Phone Hoang Castellanos APRN Primary Care Provider Encounter Details Date Type Department Care Team (Late st Contact Info) Description 12/02/2021 2:00 PM EDT Home Care Visit [facility] [address] [place] [phone] Bárbara Morfin, RN SN HOME VISIT [...] slept in a [facility] (including now)? No 12/01/2021 Sex and Gender Information Value Date Recorded Sex Assigned at Not on file Gender Identity Not on file Sexual Orientation Not on file documented as of this encounter Last Filed Vital Signs Vital Sign Reading Time Taken Comments Blood Pressure 111/65 12/02/2021 2:23 PM EDT Pulse 64 12/02/2021 2:23 PM EDT Temperature 36.7 ??C (98 ??F) 12/02/2021 2:23 PM EDT Respiratory Rate 12 12/02/2021 2:23 PM EDT Oxygen Saturation 97% 12/02/2021 2:23 PM EDT Inhaled Oxygen Concentration - - Weight - - Height - - Body Mass Index - - documented in this encounter Miscellaneous Notes * Home Health - Bárbara Morfin RN - 12/02/2021 2:05 PM EDT CP assessment, hospital bed, constipation Mirilax use, SENIOR COMPLIANCE ANALYST supervisory if necessary, Covid screening s/s, oxygen tank removal support, inhaler medication management documented in this encounter Plan of Treatment [...] goal intervention scheduled/documen shabana in this visit Medications Disciplines: [...] goal intervention scheduled/documen shabana in this visit Nutritional Concerns [...] problem intervention scheduled/documen shabana in this visit Goals [...] of certification period. Home Safety Deficit No Patient/caregiver demonstrates compliance with diabetic diet and appropriate diet planning to maintain blood sugar levels within normal range Description: Patient/caregiver will demonstrate compliance with diabetic diet and appropriate diet planning to maintain A1C levels Nutritional Concerns - Diabetes No Patient's edema is decreased or stabilized Description: Decrease or stabilization in amount of edema. Edema No Interventions Intervention Associated Problem/Goal Status Variance Visit Notes Instruct Oxygen Description: Instruct pt and cg in use of home oxygen therapy including precautions to avoid smoking, static electricity, highway patrol pilot lights on gas stoves and water heaters, oil-based lubricants, and proper storage of portable tanks. Problem:Learning/Teac elbert Needs - Inhalation Treatments Goal:Patient/caregive r demonstrates ability to administer inhalant medications and care for inhalant equipment Completed Patient instructed in the use of home oxygen therapy, safe/proper use of equipment, and precautions. Patient verbalize understanding of execution of plan, who to call and where to go in case of emergency. Pt verbalized she will call oxygen company to report empty tank and interest in having it removed. Pt verbalize understanding of smoking risk and her and spouse smoke outside. Instruct Medication Box Description: Instruct pt how to fill medication box. Problem:Medications Goal:Patient verbalizes understanding of medication regimen Completed Pt stated she has a cg coming in to fill the pill town planner for her and her . Pt keeps pain medication separate. Instruct High-Risk Meds Description: Instruct pt on high-risk medications including narcotics. Problem:Medications Goal:Patient verbalizes understanding of medication regimen Completed Pt verbalizes inhalers were taken in the am and will take as needed for sob, wheezing, and increase coughing. Safety Deficit Description: - Assess and make [...] remains safe and free from harm Completed Instruct Diet Description: - Instruct on Diabetic diet and any fluid restrictions/requiremen ts. - Instruct on how to keep a daily log of intake of food, carbohydrates, weekly weight, and incidence of changes in diet to reflect changes in blood sugars. Problem:Nutritional Concerns - Diabetes Goal:Patient/caregive r demonstrates compliance with diabetic diet and appropriate diet planning to maintain blood sugar levels within normal range Completed Patient instructed on low sugar diet and fluid restrictions/require ments. Patient verbalize increase in knowledge level related to choosing low sugar items to comply with diabetic diet. Instruct on management of edema Description: [...] Problem:Alteration in Integumentary Status - Other Completed documented in this encounter Care Teams Analytical Laboratory Technician Relationship Specialty Start Date End Date Hoang Castellanos, COLLEGE ARCHIVIST [address] [place] [address] PCP - General Family Medicine 03/12/20 documented as of this encounter
--- OUTSIDE RECORDS SUMMARY | 2024-02-22 00:48 | XMS_ITS | Encounter Summary ---
[place] [address] Care Team Providers Care Offshoring Manager Name Role Phone Hoang Castellanos APRN Primary Care Provider Reason for Visit * Auth/Cert Specialty Diagnoses / Procedures Referred By Vanita t Referred To Contact Diagnoses C 11/27 and 12/29 ACDF Procedures PRO ARTHRODESIS, ANT INTERBODY,DECOMPRESSION; CERVICAL BELOW C2 PRO ARTHRD ANT INTERDY CERVCL BELW C2 EA ADDL NTRSPC PRO ALLOGRAFT FOR SPINE SURGERY ONLY STRUCTURAL PRO ANTERIOR INSTRUMENTATION 2-3 VERTEBRAL SEGMENTS ARTHRODESIS, ANT INTERBODY,DECOMPRESSION; CERVICAL BELOW C2 (WRVU 25) ARTHRODESIS ANT INTERBDY CERVCL BELOW C2 EA ADDL INTRSPACE (WRVU 6.5) ALLOGRAFT FOR SPINE SURGERY ONLY; STRUCTUAL (WRVU 1.81) ANT. SPINAL INSTRUMENTATION, 2-3 VERTEBRA, SEGMENTED (WRVU 11.94) MODIFIER,ANTERIOR CERVICAL ZEVO REGULAR [employer] Referral ID Status Reason Start Date Expiration Date Visits Re quested Visits Authorized [id number] 1 1 Encounter Details Date Type Department Care Team (Latest Contact Info) Description 10/30/2021 6:57 AM EDT - 11/04/2021 4:02 PM EDT Hospital Encounter [address] [place] [id number] Campos Schumacher MD [facility] [address] Cervical spinal stenosis; Bradycardia; Right leg weakness Discharge Disposition: Rehab Center in a Facility Social History Tobacco Use Types Packs/Day Years Used Date Smoking Tobacco: Former Cigarettes Q uit: 07/25/2021 Smokeless Tobacco: Never Comments:smoking 3 cigarette s some days Alcohol Use Standard Drinks/Week Comments No 0 (1 standard drink = 0.6 oz pur e alcohol) not drank in 24 years Sex and Gender Information Value Date Recorded Sex Assigned at Not on file Gender Identity Not on file Sexual Orientation Not on file documented as of this encounter Last Filed Vital Signs Vital Sign Reading Time Taken Comments Blood Pressure 131/73 11/04/2021 12:05 PM EDT Pulse 70 11/04/2021 9:10 AM EDT Temperature 36.5 ??C (97.7 ??F) 11/04/2021 12:05 PM E DT Respiratory Rate 17 11/04/2021 12:05 PM EDT Oxygen Saturation 91% 11/04/2021 12:05 PM EDT Inhaled Oxygen Concentration - - Weight 96.7 kg (213 lb 3.2 oz) 10/30/2021 7:53 A M EDT Height 160 cm (5' 3) 10/30/2021 7:53 AM EDT Body Mass Index 37.77 10/30/2021 7:53 AM EDT documented in this encounter Discharge Summaries * Lela Giordano APRN - 11/04/2021 10:49 AM EDTSummary: Neurosurgery Discharge Summary Images from the original note were not included. Patient Name: Jeannie Rico Patient Age: 61 y.o. Admit date: 10/30/2021 Discharge Date and Time: 11/04/21 11:39 AM Attending Physician: Campos Schumacher MD Discharging Provider: Lela Giordano APRN Discharging Service: NEUROSURGERY Operations/Major Procedures: 10/30/2021; Dr. Campos Schumacher; C5-6 PCDF Active Hospital Problems: Active Hospital Problems Diagnosis ??? Arthrodesis present Resolved Hospital Problems No resolved problems to display. Active Non Hospital Problems: Active Non-Hospital Problems Diagnosis ??? Cervical spinal stenosis ??? Cataract of right eye ??? Right leg weakness ??? Chronic pain of right ankle ??? Bilateral leg edema ??? Vitamin D deficiency ??? Vitamin B12 deficiency ??? Generalized weakness ??? Asthma ??? Benign essential hypertension ??? Bulimia ??? Chronic obstructive pulmonary disease ??? Constipation ??? Diabetes mellitus, type II ??? Dizziness ??? Hyperlipidemia ??? Obstructive sleep apnea (adult) (pediatric) ??? Osteoarthrosis ??? Seizures ??? Coronary artery disease ??? Headache ??? Bipolar disorder ??? Low back pain ??? Hypothyroidism, acquired ??? Borderline personality disorder ??? Osteoporosis ??? Smokes cigarettes ??? GERD (gastroesophageal reflux disease) ??? Anxiety ??? Depression ??? Post traumatic stress disorder (PTSD) ??? Hidradenitis suppurativa ??? Chronic pain ??? Cervicalgia ??? Lumbago History of Presentation: Per review of relevant records-from H&P on 10/30/2021 from [facility] This is a 61 y.o. female h/o CAD s/p stents x 2 on ASA 81mg (stopped for surgery), anxiety, bipolar, PTSD, hypothyoidism, migraines, R wrist fracture, R ankle fracture, gastric bypass, hysterectomy,DM, smoker (quit in July 2021) who presents for elective procedure with Dr. Schumacher. Patient has had unsteadiness while ambulating and too many falls to count recently. Patient states that she usually uses a wheelchair now. She states that she has trouble using her hands because she has numbness bilaterally. She states that she has right > left radicular arm pain. This has been getting worseover the last few months. telephone consent by [facility] Course: Jeannie Rico presented 10/30/2021 for elective surgery with Dr. Schumacher. She underwent a C5-6 PCDF due to worsening neurological symptoms which include too many falls to count, bilateral hand numbness and right worse than left radicular arm pain in the setting of C5-6 stenosis with myelopathy. A JPdrain was placed. Incision was closed with artie(due 11/13) . There were no complications with theprocedure. Patient tolerated the procedure well. Post-op imaging was appropriate. Patient was awakened from anesthesia, extubated and taken to the recovery room in a stable condition, having sufferedno apparent untoward event. drain was removed 10/31/21; closed with monocryl. 11/01/21; patient having urinary retention. A hernandez was placed at that time. Patient will be due fora voiding trial at rehab on Tuesday11/06/21. On 11/02/21; patient requiring O2 between 2-4L nasal cannula. Patient does not have a home requirement. A BLE duplex completed which was negative. No tachycardia noted. Hospital medicine was consulted for further work-up. Per initial consult on 11/02 reports: Medicine is consulted for intermittent hypoxia and trace pleural effusions seen on CXR. ?? I suspect patient's hypoxia and dypsnea are likely secondary to atelectasis in the setting of possible COPD w/ smoking hx and inactivity/deconditioning while recuperating from surgery. Her pleural effusions appear minor and patient does not appear to be in acute heart failure, if no improvement, can consider getting proBNP level and trial 20 mg IV lasix as patient is net up a 1L since admission. Cardiac work up in the past year does not seem likely given echo and NST in the past year was normal, although patient may have component of pulmonary hypertension given risk factors. Wbc count mildly elevated no URI sx and CXR shows no signs of PNA or aspiration making an infectivecause less likely. Her Wells score is 1.5; low likelihood of PE. No trauma or signs of pulmonary contusion or PTX. Would recommend continuing monitoring improvement of hypoxia with IS and current inhalers with PRN duonebs. As patient reported was recommended using a CPAP at night in the past, could trial at night. F/u with outpatient PFTs as it did not appear she had those completed when prescribed previously On day of discharge (11/04), patient with improvement with O2 requirements and dyspnea. Intermittently requiring 2-3L NC with talking and movement but otherwise remains asymptomatic. Did receive a dose of 20mg IV lasix on 11/03 with 2.6L of urine output. Despite diuresing, patient continued to have an oxygen requirement. Final recommendations from Hospital Medicine include; continue home inhalers, IS, PT/OT to improve conditioning, outpatient PFTs, outpatient referral for CPAP/KARINA and evaluation for home oxygen use. During OT evaluation while in the hospital on 11/04; patient ambulating on room air and within one minute oxygen went down to 83%, which required use of nasal cannula. Patient intermittently may require oxygen use when out of the hospital. Patient was evaluated by rehab services and deemed appropriate for rehab. Patient was discharged instable condition 11/04/21 At time of discharge patient is afebrile, tolerating a carb controlled diet, ambulating with assistance and walker for safety , has a hernandez in place due to urinary retentionand due for a voiding trial on Tuesday11/06/2021, and managing pain with oral pain medications. Patient required tylenol and tramadol for pain management. Patient will be discharged to rehab with a prescription for tramadol. Exam on Day of Discharge; GEN: NAD, sitting up in bedside chair eating ice cream NEURO: AOx4 PERRL, FS 5/5 LUE 4+ R D/B/T, otherwise 5/5 LLE: 5/5 throughout RLE: The R knee is extended with difficult active range of motion in flexion (baseline). She is able to flex passively with moderate resistance. HF 3/5. KE 5/5. 5/5 at the ankle. Incision CDI (artie in place), SHERIN site c/d/i Case discussed with Neurosurgery Attending Dr. Campos Schumacher, who agrees with the above plan for discharge to rehab. Important Studies and Lab Data: Labs: Recent Results (from the past 24 hour(s)) POCT Glucose Result Value Ref Range POC Glucose 307 (H) 65 - 199 mg/dL POCT Glucose Result Value Ref Range POC Glucose 216 (H) 65 - 199 mg/dL POCT Glucose Result Value Ref Range POC Glucose 95 65 - 199 mg/dL POCT Glucose Result Value Ref Range POC Glucose 98 65 - 199 mg/dL POCT Glucose Result Value Ref Range POC Glucose 85 65 - 199 mg/dL POCT Glucose Result Value Ref Range POC Glucose 133 65 - 199 mg/dL Studies: Results for orders placed or performed during the hospital encounter of 10/30/21 XR Cervical Spine 2 or 3 Views (Exam End: 10/30/2021 5:15 PM) Impression Baseline radiographic appearance of the cervical spine in patient status post C5-6 PCDF without findings to suggest complication. Thank you for letting us participate in the care of this patient. If you are a health care provider and have any questions regarding this report, please contact the number below. For patients who have questions please contact the health child care associate teacher that requested your imaging first. Head wo & Multiphase CTA Head/Neck (THROMBECTOMY PROTOCOL) (Exam End: 11/01/2021 10:35 PM) Impression CT HEAD WITHOUT CONTRAST: * No acute intracranial abnormality. MULTIPHASE CTA HEAD AND CTA NECK: * No intracranial large vessel occlusion. * No hemodynamically significant stenosis, aneurysm or dissection of anterior or posterior circulation. * Postsurgical changes in posterior neck. Preliminary report signed by: Tyron Roach at 11/01/2021 11:52 PM I have personally reviewed the image(s) and the resident's interpretation and agree with the findings, Janie Aguilar MD at 11/02/2021 12:47 AM Thank you for letting us participate in the care of this patient. If you are a health care provider and have any questions regarding this report, please contact the number below. For patients who have questions please contact the health child care associate teacher that requested your imaging first. Electronically signed by: Janie Aguilar MD, [facility] ([phone]), at 11/02/2021 12:47 AM XR Chest PA & Lateral (Generic) (Exam End: 11/02/2021 9:39 AM) Impression Trace bibasilar pleural effusions and atelectasis by posterior costophrenic angles. Thank you for letting us participate in the care of this patient. If you are a health care provider and have any questions regarding this report, please contact the number below. For patients who have questions please contact the health child care associate teacher that requested your imaging first. Electronically signed by: Tahira Medrano MD, [facility] ([phone]), at 11/02/2021 11:12 AM Pending Studies and Lab Data: na Discharge Condition: Stable Discharge to: rehab Future Appointments and Orders Future Appointments and Orders Future Appointments Provider Department Dept Phone 12/03/2021 10:30 AM Campos Schumacher MD [place] at [facility] [place] at: [place] [facility] [phone] 12/22/2021 9:45 AM Michael Espinoza MD Endocrinology at [facility] [place]rive at: [place] [facility] [address]A [phone] Future Orders Complete By Expires XR Cervical Spine 2 or 3 Views [[id number] Custom] 12/04/2021 (Approximate) 01/04/2022 Process Instructions: Scheduling Instructions: Questions: Where will study be performed?: [facility] Radiology Portable exam?: Reason for exam and clinical history: Cspine fracture Clinical information / ramírez questions for radiologist: Stat read required?: Date of injury if applicable: Requested Time: Discharge Medications: Your Medications New Medications Dose Details acetaminophen 500 mg Tab Commonly known as: Tylenol Take 2 tablets by mouth every 6 hours. 1,000 mg Quantity: 30 tablet Refills: 1 polyethylene glycoL 17 gram Pwpk Commonly known as: Miralax Take 17 g by mouth daily as needed. 17 g Quantity: 14 each Refills: 0 senna-docusate 8.6-50 mg Tab Commonly known as: Pericolace Take 2 tablets by mouth 2 times daily. 2 tablet Quantity: 60 tablet Refills: 11 traMADoL 100 mg Tab Take 100 mg by mouth every 6 hours as needed for Pain. 100 mg Quantity: 45 tablet Refills: 0 Continued medications with new dosing Dose Details aspirin EC 81 mg Tbec Take 1 tablet by mouth daily. Start taking on: November 09, 2021 What changed: These instructions start on November 09, 2021. If you are unsure what to do until then, ask your doctor or other care provider. 81 mg Quantity: 30 tablet Refills: 5 Spiriva Respimat 2.5 mcg/actuation Mist Inhale 2 puffs into the lungs nightly. Generic drug: tiotropium bromide What changed: when to take this 2 puff Quantity: 12 g Refills: 3 Continued medications, unchanged Dose Details Acidophilus Cap Take 1 tablet by mouth daily. Generic drug: lactobacillus 1 tablet Refills: 0 Advair Diskus 500-50 mcg/dose Dsdv USE 1 INHALATION TWICE A DAY Generic drug: fluticasone propion-salmeteroL Quantity: 60 each Refills: 11 alum-mag hydroxide-simeth 200-200-20 mg/5 mL Susp Commonly known as: Maalox Take 10 mLs by mouth every 6 hours as needed for Indigestion. 10 mL Refills: 0 amLODIPine 5 mg Tab Commonly known as: Norvasc TAKE ONE (1) TABLET BY MOUTH EVERY DAY Quantity: 28 tablet Refills: 11 ARIPiprazole 5 mg Tab Commonly known as: Abilify Take 5 mg by mouth daily. 5 mg Refills: 0 atorvastatin 40 mg Tab Commonly known as: Lipitor TAKE ONE (1) TABLET BY MOUTH EVERY DAY Quantity: 28 tablet Refills: 11 calcium citrate 200 mg (950 mg) Tab Commonly known as: Calcitrate Take 2 tabs three times daily Quantity: 540 tablet Refills: 3 cholecalciferol 1,000 unit Tab Commonly known as: Vitamin D3 Take 3 tabs daily Quantity: 270 tablet Refills: 3 clonazePAM 0.5 mg Tab Commonly known as: KlonoPIN Take 0.5 mg by mouth daily as needed. 0.5 mg Refills: 0 ferrous sulfate 325 mg (65 mg iron) Tab Commonly known as: FeroSuL Take 1 tablet by mouth three times a week. 325 mg Quantity: 12 tablet Refills: 11 isosorbide mononitrate CR 30 mg Tablet sr Commonly known as: Imdur TAKE ONE (1) TABLET BY MOUTH EVERY DAY Quantity: 28 tablet Refills: 11 lamoTRIgine 200 mg Tab Commonly known as: LaMICtal TAKE ONE (1) TABLET BY MOUTH EVERY DAY Quantity: 28 tablet Refills: 11 lancets 30 gauge Misc 1 each by [facility].(Non-Drug; Combo Route) route daily. 1 each Quantity: 100 each Refills: 3 levothyroxine 50 mcg Tab Commonly known as: Synthroid TAKE ONE (1) TABLET BY MOUTH EVERY DAY Quantity: 28 tablet Refills: 11 lisinopriL 40 mg Tab Commonly known as: Zestril TAKE ONE (1) TABLET BY MOUTH EVERY DAY Quantity: 28 tablet Refills: 11 MARIJUANA ORAL Take by mouth. Refills: 0 metoprolol succinate XL 25 mg Tablet sr Commonly known as: Toprol-XL TAKE ONE-HALF (1/2) TABLET BY MOUTH EVERY DAY Quantity: 14 tablet Refills: 11 Miscellaneous Medical Supply Misc 1 walker on wheels with seat Quantity: 1 each Refills: 0 multivitamin Tab Commonly known as: THERAGRAN Take 1 tablet by mouth daily. 1 tablet Refills: 0 * nicotine polacrilex 2 mg Gum Commonly known as: Nicorette Take 1 each by mouth every 4 hours as needed for Smoking cessation (may alternate with lozenges). 2 mg Quantity: 100 each Refills: 5 * nicotine polacrilex 2 mg Lozg Commonly known as: Commit Place 1 lozenge inside cheek every 4 hours as needed for Smoking cessation (may alternative with gum). 2 mg Quantity: 100 tablet Refills: 3 nitroGLYcerin 0.4 mg Subl Commonly known as: Nitrostat Place 1 tablet under the tongue every 5 minutes as needed for Chest pain. 0.4 mg Quantity: 30 tablet Refills: 1 omeprazole 20 mg Cpdr Commonly known as: PriLOSEC TAKE ONE (1) CAPSULE BY MOUTH TWICE A DAY 30 MIN BEFORE BREKAFAST AND IN THE EVENING Quantity: 56 capsule Refills: 11 prazosin 2 mg Cap Commonly known as: Minipress Take 3 capsules by mouth nightly. 6 mg Quantity: 84 capsule Refills: 11 sertraline 100 mg Tab Commonly known as: ZOLOFT Take 2 tablets by mouth 2 times daily. 2 tablet Refills: 0 tiZANidine 4 mg Tab Commonly known as: Zanaflex Take 1 tablet by mouth every 6 hours as needed. 4 mg Quantity: 30 tablet Refills: 3 Ventolin HFA 90 mcg/actuation Hfaa INHALE 1 TO 2 PUFFS EVERY SIX HOURS NEEDED *CALL TO REFILL* Generic drug: albuteroL Quantity: 18 g Refills: 2 Vitamin B-12 1,000 mcg Tab TAKE ONE (1) TABLET BY MOUTH ONCE WEEKLY (PM) Generic drug: cyanocobalamin (Vitamin B-12) Quantity: 4 tablet Refills: 11 * This list has 2 medication(s) that are the same as other medications prescribed for you. Read thedirections carefully, and ask your doctor or other care provider to review them with you. STOPPED Medications ibuprofen 800 mg Tab Commonly known as: Advil Updated Allergies/ADRs: Allergies Allergen Reactions ??? Morphine Shortness Of Breath ??? Sumatriptan Hives Other reaction(s): Hives and Rash (Urticaria) ??? Oxycodone Other (See Comments) drunk feeling, dizzy ??? Oxycodone-Acetaminophen Other (See Comments) dizziness, feels drunk Other reaction(s): Unknown ??? Chantix [Varenicline] psychotic ??? Imitrex [Sumatriptan Succinate] Hives ??? Prednisone Other reaction(s): aggitation Follow-up Recommendations for Providers: Please see Discharge Instructions Please follow up in Neurosurgery Clinic in 4-[address] Schumacher. An Xray will be completed priorto your visit. Please follow up with your PCP for further work-up for new oxygen requirement Outpatient referrals: na Instructions Given to Patient at Discharge: Patient Instructions SPINAL SURGERY DISCHARGE INSTRUCTIONS PRESCRIPTION INSTRUCTIONS: Please see the medication reconciliation list on this discharge summary for a current list of your medications. Stop the use of blood thinning medications until instructed otherwise by your surgical team. This includes medications known as antiplatelet, anticoagulant, and non-steroidal anti-inflammatory (NSAIDs) drugs. Common qwcu-qns-zztzrsj medications which should be avoided include Aspirin, ibuprofen, and naproxen among others. These medications are sometimes combined with other drugs or are sold undera trade name. Common prescription medications which should be avoided include Plavix (clopidogrel) and Coumadin (warfarin) among others. You may restart your ASA 81mg daily starting on 11/09/2021 The following medications are commonly prescribed after surgery. An [x] indicates that these medications have been prescribed for you. Tramadol 50mg q 6-8 as needed for pain [x] Stool softeners - Constipation relief: docusate or senakot and/or miralax Stool softeners are commonly used after surgery to help make stools easier to pass. These medications can be obtained gcah-dgp-yeemysk and their use is recommended on an as needed basis for hard or difficult stools. They should be discontinued for loose stools and diarrhea. [x] Tylenol prn as needed for mil pain WHEN TO SEEK MEDICAL CARE: Signs or symptoms of an infection: - Fever over 101F - Redness, swelling, or increasing pain around your incision - Drainage of pus, blood, or clear fluid from your incision New neurologic symptoms: - New sensory changes such as numbness, tingling, or altered sensation - New weakness, unsteadiness, difficulty walking, or difficulty using your hands - New pain that radiates down your spine or into one of you extremities - New bowel or bladder dysfunction such as incontinence or retention Constipation not relieved by diet and/or taau-efz-sgvnili stool softeners and laxatives Nausea/vomiting (upset stomach) not controlled with anti-nausea medication Symptoms of a deep venous thrombosis (DVT) or pulmonary embolism (PE): - Swelling/warmth/redness of the leg - Pain in the leg, which can be worse with standing or walking - Chest pain or shortness of breath To help prevent a DVT: - Exercise regularly. Walking, at least several times daily, is helpful. - Ankle pump exercises (like pressing and releasing the gas pedal) should be done regularly. - Keep hydrated with water or other clear liquids (coffee/tea/cola can dehydrate you). - Avoid alcohol and crossing your legs. - Remember not to sit or lay in bed, while awake, for prolonged amounts of time. WOUND CARE: - Keep incisional site clean and dry. You can remove your dressing 2 days after surgery. - You may shower and shampoo incisional site, per your usual routine, 4 days after surgery. - Do not pick/scratch/itch your incision. Pat dry. - Do not submerge your incision underwater (do not bath in a tub or go swimming in any pools, [place], lakes, oceans) for a minimal of 4 weeks after the operation. - Please consider taking supplemental Vitamin C (500mg) for up to 3 months, Zinc (220mg) for 2-6 weeks, and Vitamin A (10,000units) for up to 5 days as these supplements may decrease your risk of infection and promote healing of your surgical wound. - Keep your incision out of the sun for at least 6 months. The new skin is at high risk of having malignant (cancerous) changes and UV sunlight also makes scars more pronounced. DIET: - You may resume your usual diet. - Make sure your stay well hydrate. - A well-balanced diet is recommended for wound healing. - Prune juice or prunes can be added to your diet to assist with any constipation. - If you do not have kidney diease, it is recommended that you consume extra protein to help your body heal. You may consider supplemental protein in the form of shakes, powders, or bars. - Consider foods high in calcium (ex. dairy products or dark, leafy greens) and vitamin D (ex. Seafood) if you have had a spinal fusion as these will help your bones heal. You should also consider taking supplemental calcium (citrate is better than carbonate) 1000mg and vitamin D3 600units daily. ACTIVITY: - You should avoid lifting more than 5 lbs. - Restrict strenuous activity (such as running, jumping, jogging, shoveling, etc.) until cleared byyour surgical team - Avoid bending and twisting your spine. DRIVING: - Do not drive while taking narcotic pain medication. [x] You may NOT drive until cleared by Neurosurgery. SMOKING: Smoking has a negative impact on bone healing, in terms of delayed union, nonunion, and more complications. Smoking is the leading preventable cause of , and quitting is the single most important thing you can do for your health. However, it's hard to quit smoking and you might need some help. Nicotine in tobacco is an addictive drug and it can be a very difficult to quit. Seventy percent of all adult smokers want to quit smoking but are overwhelmed with the process. We can help! Our Tobacco Dependence Clinics We have tobacco dependence clinics in these locations: ??? [facility] for Tobacco-Free Communities: [place] ??? [facility] [place], [place] Other Programs at [facility] [place] ??? Living Free of Tobacco support group: For anyone who has quit tobacco or is considering quitting tobacco. [facility] Education [facility], Level 4, [place] 3:30 to 4:30 p.m. on the tuesday of every month. Other Programs in the Area ??? [facility] in [place] One-on-one counseling, hypnosis. Cassidy Jamison ??? [facility] in [place], [place] One-on-one counseling, QuitLine, classes. Lay Ferris ??? [facility]: One-on-one counseling. All ages and incomes eligible. Sakshi Camacho [facility]: Classes & support group. Behzad Schwab ??? [facility] in [place], [place] One-on-one counseling, QuitLine, classes, hypnosis therapy. Ruth Corey Information about Quitting Smoking and Tobacco See our Quitting Smoking - Information and Materials page ([email or web address]- information/[email or web address]/information_on_quitting_smoking.html) for educational information about quitting smoking, downloadable smoking cessation materials, podcasts, websites, helplines, and more. FOLLOW UP PLAN: Incision: [x] Your artie need to be removed on 11/13/2021. You can get them removed by coming into our office, PCP office, or at rehab. a Appointments: Please follow up in the Neurosurgery Clinic in 4-6 weeks. Please call the Neurosurgery Office at [phone] if you do not receive a scheduled appointment within two weeks. Your follow-up appointment will be with: [x] Dr. Schumacher Follow-up Imaging: [x] XR - Cervical HOW TO REACH NEUROSURGERY Office Hours: Tuesday through Tuesday, 8am-5pm. Call . On weekends or after office hours: Call [phone] and ask the central office operator to page the Neurosurgery Resident/Advanced Practice Provider home care companion. IMPORTANT PHONE NUMBERS: Outpatient Nurse (Karen Belle) Inpatient Nurses Neurosurgical Resident/Advanced Practice Provider On-Call (after 5pm or before 8am) Neurosurgery offices (Tuesday through Tuesday between 8am-5pm): Adult Neurosurgery Dr. Remy Green Pediatric Neurosurgery Dr. Cassidy Funes Advanced Practice Providers Prudence Heaton, Nurse Practitioner (outpatient) Cheryl Patel, Physician Dope Edger (inpatient) Mabel Metcalf, Nurse Practitioner (inpatient) Brandi Chiu, Physician Dope Edger (inpatient) Brandi Benavides, Physician Dope Edger (inpatient) Karen Barksdale, Nurse Practitioner (outpatient: vascular) Amanda Mendez, Physician Dope Edger (outpatient: spine) David Herring, Nurse Practitioner (inpatient/outpatient) Freddy Dolan, Physician Dope Edger (outpatient) Margo Almodovar, Nurse Practitioner (outpatient: neuro-oncology) HOW TO REACH NEUROSURGERY Office Hours (Tuesday through Tuesday 8am-5pm): Call On weekends or after office hours (after 5pm or before 8am): Call [phone] and ask the central office operator to page the Neurosurgery Resident/Advanced Practice Provider home care companion. *Your surgeon may not be body recall instructor (especially after office hours or on the weekend) so be ready totell about yourself and your surgery when you call. Neurosurgery Providers Adult Neurosurgery Dr. Remy Green Pediatric Neurosurgery Dr. Cassidy Funes Advanced Practice Providers Prudence Heaton, Nurse Practitioner (outpatient) Cheryl Patel, Physician Dope Edger (inpatient) Mabel Metcalf, Nurse Practitioner (inpatient) Brandi Chiu, Physician Dope Edger (inpatient) Dereck Salgado, Nurse Practitioner (outpatient: pediatric) Brandi Benavides, Physician Dope Edger (inpatient) Karen Barksdale, Nurse Practitioner (outpatient: vascular) Amanda Mendez, Physician Dope Edger (outpatient: spine) David Herring, Nurse Practitioner (inpatient/outpatient) Freddy Dolan, Physician Dope Edger (outpatient) Margo Almodovar, Nurse Practitioner (outpatient: neuro-oncology) Outpatient Nurses Tegan Giordano APRN 11/04/2021 documented in this encounter Discharge Instructions * Patient Instructions* Lela Giordano APRN - 11/03/2021 1:06 PM EDT SPINAL SURGERY DISCHARGE INSTRUCTIONS PRESCRIPTION INSTRUCTIONS: Please see the medication reconciliation list on this discharge summary for a current list of your medications. Stop the use of blood thinning medications until instructed otherwise by your surgical team. This includes medications known as antiplatelet, anticoagulant, and non-steroidal anti-inflammatory (NSAIDs) drugs. Common brqz-ipe-uhpwzqa medications which should be avoided include Aspirin, ibuprofen, and naproxen among others. These medications are sometimes combined with other drugs or are sold undera trade name. Common prescription medications which should be avoided include Plavix (clopidogrel) and Coumadin (warfarin) among others. You may restart your ASA 81mg daily starting on 11/09/2021 The following medications are commonly prescribed after surgery. An [x] indicates that these medications have been prescribed for you. Tramadol 50mg q 6-8 as needed for pain [x] Stool softeners - Constipation relief: docusate or senakot and/or miralax Stool softeners are commonly used after surgery to help make stools easier to pass. These medications can be obtained teck-bbv-kbldbvk and their use is recommended on an as needed basis for hard or difficult stools. They should be discontinued for loose stools and diarrhea. [x] Tylenol prn as needed for mil pain WHEN TO SEEK MEDICAL CARE: Signs or symptoms of an infection: - Fever over 101F - Redness, swelling, or increasing pain around your incision - Drainage of pus, blood, or clear fluid from your incision New neurologic symptoms: - New sensory changes such as numbness, tingling, or altered sensation - New weakness, unsteadiness, difficulty walking, or difficulty using your hands - New pain that radiates down your spine or into one of you extremities - New bowel or bladder dysfunction such as incontinence or retention Constipation not relieved by diet and/or efqt-imz-mxjpgyy stool softeners and laxatives Nausea/vomiting (upset stomach) not controlled with anti-nausea medication Symptoms of a deep venous thrombosis (DVT) or pulmonary embolism (PE): - Swelling/warmth/redness of the leg - Pain in the leg, which can be worse with standing or walking - Chest pain or shortness of breath To help prevent a DVT: - Exercise regularly. Walking, at least several times daily, is helpful. - Ankle pump exercises (like pressing and releasing the gas pedal) should be done regularly. - Keep hydrated with water or other clear liquids (coffee/tea/cola can dehydrate you). - Avoid alcohol and crossing your legs. - Remember not to sit or lay in bed, while awake, for prolonged amounts of time. WOUND CARE: - Keep incisional site clean and dry. You can remove your dressing 2 days after surgery. - You may shower and shampoo incisional site, per your usual routine, 4 days after surgery. - Do not pick/scratch/itch your incision. Pat dry. - Do not submerge your incision underwater (do not bath in a tub or go swimming in any pools, [place], lakes, oceans) for a minimal of 4 weeks after the operation. - Please consider taking supplemental Vitamin C (500mg) for up to 3 months, Zinc (220mg) for 2-6 weeks, and Vitamin A (10,000units) for up to 5 days as these supplements may decrease your risk of infection and promote healing of your surgical wound. - Keep your incision out of the sun for at least 6 months. The new skin is at high risk of having malignant (cancerous) changes and UV sunlight also makes scars more pronounced. DIET: - You may resume your usual diet. - Make sure your stay well hydrate. - A well-balanced diet is recommended for wound healing. - Prune juice or prunes can be added to your diet to assist with any constipation. - If you do not have kidney diease, it is recommended that you consume extra protein to help your body heal. You may consider supplemental protein in the form of shakes, powders, or bars. - Consider foods high in calcium (ex. dairy products or dark, leafy greens) and vitamin D (ex. Seafood) if you have had a spinal fusion as these will help your bones heal. You should also consider taking supplemental calcium (citrate is better than carbonate) 1000mg and vitamin D3 600units daily. ACTIVITY: - You should avoid lifting more than 5 lbs. - Restrict strenuous activity (such as running, jumping, jogging, shoveling, etc.) until cleared byyour surgical team - Avoid bending and twisting your spine. DRIVING: - Do not drive while taking narcotic pain medication. [x] You may NOT drive until cleared by Neurosurgery. SMOKING: Smoking has a negative impact on bone healing, in terms of delayed union, nonunion, and more complications. Smoking is the leading preventable cause of , and quitting is the single most important thing you can do for your health. However, it's hard to quit smoking and you might need some help. Nicotine in tobacco is an addictive drug and it can be a very difficult to quit. Seventy percent of all adult smokers want to quit smoking but are overwhelmed with the process. We can help! Our Tobacco Dependence Clinics We have tobacco dependence clinics in these locations: [facility] for Tobacco-Free Communities: [place] [facility] Tobacco Treatment [facility], [place] Other Programs at [facility] in [place] Living Free of Tobacco support group: For anyone who has quit tobacco or is considering quitting tobacco. [facility], Level 4, [place] 3:30 to 4:30 p.m. on the tuesday of every month. Other Programs in the Area [facility] in [place] One-on-one counseling, hypnosis. Cassidy Jamison [facility] in [place], [place] One-on-one counseling, QuitLine, classes. Lay Ferris [facility]: One-on-one counseling. All ages and incomes eligible. Sakshi Camacho [facility]: Classes & support group. Behzad Schwab [facility] in [place], [place] One-on-one counseling, QuitLine, classes, hypnosis therapy. Ruth Corey Information about Quitting Smoking and Tobacco See our Quitting Smoking - Information and Materials page ([email or web address]- [email or web address]_[email or web address]_quitting_[email or web address]) for educational information about quitting smoking, downloadable smoking cessation materials, podcasts, websites, helplines, and more. FOLLOW UP PLAN: Incision: [x] Your artie need to be removed on 11/13/2021. You can get them removed by coming into our office, PCP office, or at rehab. a Appointments: Please follow up in the Neurosurgery Clinic in 4-6 weeks. Please call the Neurosurgery Office at [phone] if you do not receive a scheduled appointment within two weeks. Your follow-up appointment will be with: [x] Dr. Schumacher Follow-up Imaging: [x] XR - Cervical HOW TO REACH NEUROSURGERY Office Hours: Tuesday through Tuesday, 8am-5pm. Call . On weekends or after office hours: Call [phone] and ask the central office operator to page the Neurosurgery Resident/Advanced Practice Provider home care companion. IMPORTANT PHONE NUMBERS: Outpatient Nurse (Karen Belle) Inpatient Nurses Neurosurgical Resident/Advanced Practice Provider On-Call (after 5pm or before 8am) Neurosurgery offices (Tuesday through Tuesday between 8am-5pm): Adult Neurosurgery Dr. Remy Green Pediatric Neurosurgery Dr. Cassidy Funes Advanced Practice Providers Prudence Heaton, Nurse Practitioner (outpatient) Cheryl Patel, Physician Dope Edger (inpatient) Mabel Metcalf, Nurse Practitioner (inpatient) Brandi Chiu, Physician Dope Edger (inpatient) Brandi Benavides, Physician Dope Edger (inpatient) Karen Barksdale, Nurse Practitioner (outpatient: vascular) Amanda Mendez, Physician Dope Edger (outpatient: spine) David Herring, Nurse Practitioner (inpatient/outpatient) Freddy Dolan, Physician Dope Edger (outpatient) Margo Almodovar, Nurse Practitioner (outpatient: neuro-oncology) documented in this encounter Medications at Time of Discharge Medication Sig Dispensed Refills Start Date End Date polyethylene glycoL (Miralax) 17 gram Powder in [...] tablet 11 10/28/2021 atorvastatin (Lipitor) 40 mg TabletIndications:Hyper lipidemia, unspecified hyperlipidemia type TAKE ONE (1) TABLET BY MOUTH EVERY DAY 28 tablet 11 09/01/2021 omeprazole (PriLOSEC) 20 mg Capsule, Delayed Release(E.C.)Indication s:Gastroesophageal reflux disease TAKE ONE (1) CAPSULE BY MOUTH TWICE A DAY 30 MIN BEFORE BREKAFAST AND IN THE EVENING 56 capsule 11 09/01/2021 clonazePAM (KlonoPIN) 0.5 mg Tablet Take 0.5 mg by mouth nightly. 05/20/2021 Miscellaneous Medical Supply MiscIndications:Dizzine ss,Chronic right-sided low back pain without sciatica 1 walker on wheels with seat 1 each 03/12/2020 multivitamin (THERAGRAN) Tablet Take 1 tablet by mouth daily. MARIJUANA ORAL Take 1 Dose by mouth 2 times daily. prazosin (Minipress) 2 mg Capsule Take 3 [...] by mouth 2 times daily. 01/27/2020 04/14/2023 traMADoL 100 mg Tablet Take 100 mg by mouth every 6 hours as needed for Pain. 45 tablet 11/04/2021 12/01/2021 tiZANidine (Zanaflex) 4 mg TabletIndications:Cervi calgia,Chronic pain syndrome Take 1 tablet by mouth every 6 hours as needed. 30 tablet 3 09/15/2021 12/01/2021 amLODIPine (Norvasc) 5 mg TabletIndications:Benig n essential hypertension TAKE ONE (1) TABLET BY MOUTH EVERY DAY 28 tablet 11 09/01/2021 12/01/2021 Acidophilus Capsule Take 1 tablet by mouth daily. 05/24/2021 12/01/2021 nicotine polacrilex (Nicorette) 2 mg GumIndications:Smokes cigarettes Take 1 each by mouth every 4 hours as needed for Smoking cessation (may alternate with lozenges). 100 each 5 2021 12/01/2021 nicotine polacrilex (Commit) 2 mg LozengeIndications:Smok es cigarettes Place 1 lozenge inside cheek every 4 hours as needed for Smoking cessation (may alternative with gum). 100 tablet 3 2021 12/01/2021 Advair Diskus 500-50 mcg/dose Disk with Device [The details of the medication are not available because there are pending changes by a home health clinician.] 60 each 11 04/24/2021 11/30/2021 lisinopriL (Zestril) 40 mg TabletIndications:Candy n essential hypertension TAKE ONE (1) TABLET BY MOUTH EVERY DAY 28 tablet 11 04/14/2021 12/01/2021 tiotropium bromide (Spiriva Respimat) 2.5 mcg/actuation MistIndications:Asthma with acute exacerbation, unspecified asthma severity, unspecified whether persistent Inhale 2 puffs into the lungs nightly. 12 g 3 03/23/2021 03/19/2022 metoprolol succinate XL (Toprol-XL) 25 mg Tablet Sustained Release 24 hr TAKE ONE-HALF (1/2) TABLET BY MOUTH EVERY DAY 14 tablet 11 03/17/2021 12/01/2021 Vitamin B-12 1,000 mcg TabletIndications:B12 deficiency TAKE ONE (1) TABLET BY MOUTH ONCE WEEKLY (PM) 4 tablet 11 03/17/2021 02/15/2022 isosorbide mononitrate CR (Imdur) 30 mg Tablet Sustained Release 24 hrIndications:Coronary artery disease involving [place] coronary artery of [place] heart without angina pectoris TAKE ONE (1) TABLET BY MOUTH EVERY DAY 28 tablet 11 02/17/2021 01/18/2022 Ventolin HFA 90 mcg/actuation HFA Aerosol InhalerIndications:Pharmacy Student randell obstructive pulmonary disease, unspecified COPD type INHALE 1 TO 2 PUFFS EVERY SIX HOURS NEEDED *CALL TO REFILL* 18 g 2 10/27/2020 12/01/2021 nitroGLYcerin (Nitrostat) 0.4 mg Tablet, Sublingual Place 1 tablet under the tongue every 5 minutes as needed for Chest pain. 30 tablet 1 06/02/2020 12/01/2021 lancets 30 gauge MiscIndications:Type 2 diabetes mellitus without complication, without long-term current use of insulin [The details of the medication are not available because there are pending changes by a home health clinician.] 100 each 3 12/26/2019 11/30/2021 ARIPiprazole (Abilify) 5 mg Tablet Take 5 mg by mouth daily. Taking half 12/12/2019 12/11/2021 alum-mag hydroxide-simeth (Maalox) 200-200-20 mg/5 mL Suspension Take 10 mLs by mouth every 6 hours as needed for Indigestion. 11/26/2021 documented as of this encounter Progress Notes * Kanu Roberts RN - 11/04/2021 4:02 PM EDT Jeannie Rico discharged to [facility] by ambulance. All belongings sent with patient. KILO removed, incision GRINDER OPERATOR TOOL, skin free from pressure ulcers. Discharge instructions, medications, and follow-up appointments reviewed, education provided on 1300, all questions answered. Report called to at 1300. Patient instructed to call with concerns. * Parvin Barksdale RN - 11/04/2021 11:44 AM EDT Physician Certification Statement for Non-Emergency Ambulance Services Section I - General Information Jeannie Rico 1960 Medicare Number: [id number] Transport Date: 11/04/21 (PCS is valid for round trips on this date and for all repetitive trips in the 60-day range as noted below.) Origin: [facility] Destination: [facility], [place] Is the patient's stay covered under Medicare Part A (PPS/DRG)?: Yes Closest appropriate facility? Yes Transfer Type: N/A Section II - Medical Necessity Questionnaire Ambulance Transportation is medically necessary only if other means of transport are contraindicated or would be potentially harmful to the patient. To meet this requirement, the patient must be either bed confined or suffer from a condition such that transport by means other than ambulance is contraindicated by the patient's condition. The following questions must be answered by the medical professional signing below for this form to be valid: 1) Describe the MEDICAL CONDITION (physical and/or mental) of this patient AT THE TIME OF AMBULANCETRANSPORT that requires the patient to be transported in an ambulance and why transport by other means is contraindicated by the patient's condition: s/p ACDF for Arthrodesis 2) Is the patient bed confined as defined below? Yes To be bed confined the patient must satisfy all three of the following conditions: - unable to get up from bed without assistance AND unable to ambulate AND unable to sit in a chair or wheelchair. 3) Can this patient safely be transported by car or wheelchair van (i.e. seated during transport, without director of medical review or monitoring?): No 4) In addition to complete questions 1-3 above, please select any of the following conditions that apply: *Note: supporting documentation for any boxes checked must be maintained in the patient's medical records Moderate/severe pain on movement Unable to tolerate seated position for time needed to transport Section III - Signature of Physician or Healthcare Professional I certify that the above information is true and correct based on my evaluation of this patient, and represent that the patient requires transport by ambulance and that other forms of transport are contraindicated. I understand that this information will be used by the Centers of Medicare and Medicaid Services (CMS) to support the determination of medical necessity for ambulance services, and I represent that I have personal knowledge of the patient's condition at the time of transport. Parvin Barksdale RN 11/04/21 Form was electronically signed and dated by the patient's Physician or Healthcare Professional *Form must be signed only by patient's attending physician for scheduled, repetitive transports. For non-repetitive, unscheduled ambulance transports, when unable to obtain the signature of the attending physician, this form was signed by Registered Nurse * Pravin Barksdale RN - 11/04/2021 11:43 AM EDT Ambulance transportation is medically necessary at discharge related to s/p PCDF for Arthrodesis, pain, unable to tolerate seated position for time of transport. I have discussed Medicare/Private Insurance reimbursement guidelines for ambulance transport. Patient/family(name of individual)pt and SO verbalize understanding of their potential financial obligation and agree with ambulance transport. Parvin Barksdale MSN-Ed, RN ACM resident medical officer Office of Care Management Pager #[phone] * Kanu Roberts RN - 11/04/2021 11:23 AM EDT OUTCOME EVALUATION NOTE: ?? OUTCOME SUMMARY: ?? Pt neurologically unchanged. VSS fair with 2L NC. Pt controlled with scheduled and PRN medication. Hernandez in place with adequate output. Safety maintained.? PLAN MOVING FORWARD: ?? DC to rehab ?? INDIVIDUALIZED FALL PREVENTION INTERVENTIONS: ?? Patient-specific fall risk factors per assessment: recent surgery, generalized weakness, hospital environment, lines/wires ?? Assistance: 2 assist, FWW ?? Supervision: ??Hands on ?? Surveillance: Bed locked in low position, call damian within reach, purposeful hourly rounding, clutter free environment, bed/chair alarm on, family at bedside ?? CPG GOAL OUTCOME EVALUATION: ?? Continue care plan as documented. * Jeremy Pearson - 11/04/2021 11:11 AM EDTSummary: Discharge Note Office of Care Management/Rail Car Welder Patient Name: Jeannie Rico : 1960 Patient has been offered an acute rehab bed at [facility] for today, 11/04/21 [facility] arranged for a 1530 transport. Ambulance will need: Medicare ambulance form completed and signed (MD or Cleaning Attendant RN/COLLEGE DEAN) Copy of patient demographics [place] or [place] [facility] Hospital DNR/DNI order, if active No MD to MD report necessary Please call Nursing Report to , ask for clinical informaticist. Info to accompany patient: Copies of Medication Administration Records and IV sheets for past 10 days. Plan: Rail Car Welder will be available to the patient and Cleaning Attendant-RN and/or Social Workerfor further assistance. Patient will be discharged to: [facility] Jeremy Pearson, Rail Car Welder * Amelie Howell OTA - 11/04/2021 9:37 AM EDT Occupational Therapy Treatment Note Treatment Number OT: 3 Patient Dx: Jeannie Rico is a 61 y.o. 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 Pt is not s/p C5-C6 PCDF on 10/[address] Schumacher. Precautions/Special Considerations: fall risk, SBP 90-160, up with assist, activity as tolerated, up in chair TID, ambulate TID Interval History: Per Resident Note 11/04/2021 A&O x 4 - AVSS on room air currently but intermittently requires 2-3L NC - resting comfortably; dyspnea improved - pt was diuresed with 20 mg IV lasix yesterday with 2.6L UO and cumulatively net negative 1L - denies fevers, chills, chest pain, pleurisy, wheezing, URI sx, dizziness, nausea, vomiting, or any other acute sx - chronic cough but stable - on room air this morning but intermittently sats drop to low 80s and 70s with talking or movementrequiring 2-3L NC; hypoxia is asymptomatic S: I feel great after walking, I knew I could do it O: Patient seen for skilled OT treatment, and demonstrated the following: ?? Self-care/Functional Mobility ?? Pt seated in chair upon entry, agreeable to therapy ?? Pt was pre medicated prior to session after request given to RN ?? Pt ambulated to bathroom to complete sink side ADL. Demonstrated the following ?? Washed B LE and UE with L arm. Pt winces in pain when her L UE is unsupported, required cues forboth direction and prevention ?? Pt Max A to don personal gown secondary to reports of pain (05/03) ?? Pain behaviors remain inconsistent with specific motions or actions however appear at their worst when pt is seated with R UE unsupported ?? Pt provided education about importance of R UE positioning for pain prevention ?? Sit>stand Min A with FWW and gait belt pt reported feeling lightheaded following sit >stad, BP taken: 122/71. ?? Following max encouragement, pt agreed to ambulate in hallway, ambulated ~150 ft in total with intermittent rest breaks and 2 L O2 ?? Pt ambulated in hallway before O2 destatted to 80. 2L of O2 applied and pt seated, recovered in ~1 min. O2 remained on for remainder of session ?? Pt requires frequent seated rest breaks (approx. every 20 ft) during ambulation secondary to desaturation of O2 levels and reports of feeling lightheaded ?? Pt returned to room and sat in recliner chair. ?? Pt slightly impulsive with using FWW when performing stand>sit, not keeping walker close to body/surface. Pt provided education on importance of safety with FWW ?? Rinsed mouth with mouthwash following setup assistance ?? Pt left in recliner with alarm active and all needs within reach. ?? Cognition: ?? Behavior / Mood: alert, cooperative and labile ?? Alert and oriented to: person, place, time and situation ?? Follows commands: 1 step, 75% of the time, requires increased time and requires repetition ?? Attention: WFL ?? Safety awareness: impulsive ?? 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 minimal vision R eye ?? Strength and ROM: ?? Pt strength and ROM in RUE improved 4/5 strength with report of improvement in sensation ?? Endurance:fair ?? Vitals: pt reported feeling lightheaded following sit >stad, BP taken: 122/71. Pain: Pt articulates pain in R cervical/ shoulder area intermittently throughout session. Pain not consistent with specific behaviors and appears somewhat sporadic. Pt rates pain at 10/10 Education: Pt/family/caregiver education ongoing regarding: Role of occupational therapy/rehabilitation, Transfers, Assistive device/technique, ADL, Exercise, Positioning, Safety, Precautions/Protocol, Functional Mobility and Balance. Staff Communication: Patient status, treatment, and mobility recommendations discussed with nursing/other staff. ASSESSMENT: Pt seen today for occupational therapy services. Pt was premedicated in anticipation ofOT session this morning. Pt continues to articulate severe pain behaviors central to R cervical area (05/03) during seated ADL. Pain does not appear to be consistent with certain movements however occurs when R UE is unsupported in seated positions. Pt mobilized ~[address] with FWW, gaitbelt and ~5 seated rest breaks (every ~20ft). Will continue to encourage participation in therapy. Pt will benefit from ongoing therapeutic interventions to achieve pt's and therapy goals Anticipated Discharge Disposition (OT): acute rehabilitation facility Equipment Recommendations: TBD ?? Daily schedule / Staff Recommendations: Transfer to recliner chair or commode as appropriate with min assist of 2 and FWW Encourage participation in ADL's by providing set up A on tray table and physical assist only as needed Occupational Therapy Goals: To be achieved by November 16, 2021. Pt will complete self feeding after complete set up with necessary tools and opening packages/cutting foods to consume 75% of all meals. Pt will complete toileting routine including transfer, clothing management, and hygiene with min assist. Pt will complete UB bathing and dressing in sitting with supervision assist using compensatory strategies as needed.Progressing Pt will complete LB dressing with min assist using AE as needed. Pt will complete functional transfers and mobility of a household distance with supervision assist for participation in ADLs using self pacing as needed. Progressing Pt will participate in UE strength/ROM/coordination exercises as appropriate for improved participation in daily tasks. Therapy Frequency (OT): 1-3 times/wk Total Minutes, Occupational Therapy: 47 (2x SCHM 1xfunctional mobility) 9:37-10:24 Herminio MIGUEL Occupational Therapy Rehabilitation Department SRUTHI Tomas Pager # [phone] Patient status, treatment interventions, and goals discussed with student. I am in agreement with all details and associated flowsheet rows as documented and was present for all aspects of the patient treatment session. * Darby Cruz MD - 11/04/2021 9:04 AM EDT Medicine Consults Progress Note ID: Ms. Jeannie Rico is a ??61 y.o.??female??h/o CAD s/p stents x 2 on ASA 81mg (stopped for surgery), anxiety, bipolar, PTSD, hypothyoidism, migraines, R wrist fracture, R ankle fracture, gastric bypass, hysterectomy, DM, smoker (quit in July 2021) who presents for elective cervical decompression fusion with Dr. Schumacher for myelopathic sx with unsteadiness, recent falls, BUE numbness, and right > left radicular arm pain. Medicine is consulted for intermittent hypoxia and trace pleural effusions seen on CR. 24 Hour Events/Subjective: - A&O x 4 - AVSS on room air currently but intermittently requires 2-3L NC - resting comfortably; dyspnea improved - pt was diuresed with 20 mg IV lasix yesterday with 2.6L UO and cumulatively net negative 1L - denies fevers, chills, chest pain, pleurisy, wheezing, URI sx, dizziness, nausea, vomiting, or any other acute sx - chronic cough but stable - on room air this morning but intermittently sats drop to low 80s and 70s with talking or movementrequiring 2-3L NC; hypoxia is asymptomatic Vitals: Last value Range last 24 hrs Temperature Temp: 37 ??C (98.6 ??F) Temp: [36.5 ??C (97.7 ??F)-37.1 ??C (98.8 ??F)] Heart Rate Heart Rate: 59 Heart Rate: [59-70] Blood Pressure BP: 112/60 BP: (93-114)/(55-62) Respiratory Rate Resp: 16 Resp: [15-18] SpO2 SpO2: 97 % SpO2: [89 %-97 %] Ins/Outs: Intake/Output Summary (Last 24 hours) at 11/04/2021 0904 Last data filed at 11/04/2021 0400 Gross per 24 hour Intake 750 ml Output 2600 ml Net -1850 ml Weights: Admit weight: 96.71 kg Patient Vitals for the past 168 hrs: Weight 10/30/21 0753 96.7 kg (213 lb 3.2 oz) Physical Exam: General: Chronically ill-appearing obese female in NAD, A&O x 4 Head: NCAT Eyes: EOMI, PERRLA, no scleral icterus Oropharynx: MMM, no erythema, exudates, or lesions Neck: Supple, trachea midline, no thyromegaly; cervical spine with long-vertical surgical scar on posterior side closed by artie; no bleeding, purulence, or erythema Lungs: Improved air movement in upper lobes and lower lobes but mild rales in LLL; no clubbing, cyanosis, or tachypnea on room air; no noted wheezing Heart: RRR w/o M/R/G/C with loud S1; no JVD Abdomen: Soft, NT/ND Extremities: Trace non-pitting edema to BLE; 2+ DP pulses Neuro: Cranial Nerves 2-12 grossly intact; no gross focal deficits Skin: No gross rashes, lesions, or ecchymoses; noted hirsutism Lymphatics: No cervical or clavicular LAD Labs: Recent Labs 10/31/21 0814 WBC 10.6* HGB 13.0 HCT 40.9 PLATELET 210 Recent Labs 10/31/21 1221 NA 134* K 4.7 CL 98 CO2 28 BUN 12 CREATININE 0.74 No results for input(s): AST, ALT, ALKPHOS, BILITOT, BILIDIR in the last 168 hours. Recent Labs 10/31/21 1221 CALCIUM 9.0 MAGNESIUM 0.78 PHOS 4.4 No results for input(s): INR, PT, PTT in the last 168 hours. Recent Labs 10/31/21 1221 TROPONINT <0.01 Recent Labs 11/04/21 0741 11/04/21 0356 11/03/21 2346 11/03/21 1956 11/03/21 1515 11/03/21 1203 POCGLU 133 85 98 95 216* 307* Microbiology: Microbiology Results (Last 30 days) Procedure Component Value Units Date/Time COVID-19 PCR [[id number]] Collected: 11/02/21 1615 Lab Status: Final result Specimen: Nasopharyngeal Swab Updated: 11/02/212002 SARS-CoV-2 RNA PCR Not Detected Comment: This result should be interpreted in combination with the clinical observations, patient history and epidemiological information. For testing of asymptomatic individuals, assay performance characteristics and clinical utility have not been evaluated. Testing for SARS-CoV-2 (Severe acute respiratory syndrome coronavirus 2, formerly known as 2019 novel coronavirus or 2019-nCoV) to aid in the diagnosis of COVID-19 is performed using the Simplex[employer] COVID-19 Direct Assay by [employer] as authorized by the FDA issued Emergency Use Authorization (EUA). This assay is intended for In-vitro Diagnostic (IVD) use with nasopharyngeal swabs collected from individuals meeting the CDC criteria for testing. The assay is performed based on the instructions for use and additional guidance provided by the FDA. Testing is performed in the Microbiology Laboratory within the Department of Pathology and Laboratory Medicine at [facility], certified under the Clinical Laboratory Improvement Amendments of 1988 (CLIA), 42 U.S.C. section 263a, to perform high complexity tests. Assay performance has been verified according to clinical laboratory regulatory requirements. Test results are provided above. A result of Not Detected indicates that the viral RNA target is not present but does not preclude SARS-CoV-2 infection. False negative results may occur if a specimen is improperly collected, transported or handled; if amplification inhibitors are present; or if inadequate numbers of viral particles are present in the specimen. A result of Detected suggests a current or recent infection and the patient is presumed to be infected. Positive and negative predictive values for this test are highly dependent on disease prevalence. A result of Invalid indicates the inability to conclusively determine the presence or absence of SARS-CoV-2 RNA in the sample which can be due to a variety of factors. Recollection is recommended in the case of an invalid result. CDC COVID-19 criteria for testing on human specimens and clinical management guidance information are available at the CDC Coronavirus Disease 2019 (COVID-19) webpage under Information for Healthcare Professionals (https://www.cdc.gov/coronavirus/2019-ncov/hcp/index.html). Additional information about this and other EUA tests can be found in provider and patient fact sheets at the following FDA website: https://www.fda.gov/medical-devices/cxkxobkhwzp-twmwgoh-1902-zrkdv-42-icgmuswwh- vib-enndwxcokfgbtx-jpbrlwg-devices/wmvdn-sunahcfsukw-pepw SARS-CoV-2 Source [employer] Swab COVID-19 PCR [[id number]] Collected: 10/27/21 1132 Lab Status: Final result Specimen: Nasopharyngeal Swab Updated: 10/28/21821 SARS-CoV-2 RNA Not Detected Comment: This result should be interpreted in combination with the clinical observations, patient history and epidemiological information in making a final diagnosis. For testing of asymptomatic individuals, assay performance characteristics and clinical utility have not been evaluated. Testing for SARS-CoV-2 (Severe acute respiratory syndrome coronavirus 2, formerly known as 2019 novel coronavirus or 2019-nCoV) to aid in the diagnosis of COVID-19 is performed using the [employer] m SARS-CoV-2 Assay as authorized by the FDA Emergency Use Authorization (EUA). This EUA assay is intended for In-vitro Diagnostic (IVD) use with respiratory specimens such as nasopharyngeal swabs collected from individuals during the acute phase of infection. This assay is performed based on the instructions for use provided by [employer] and additional guidance provided by CDC and FDA. Testing is performed in the Clinical Genomics and [facility] Laboratory within the Department of Pathology and Laboratory Medicine at [facility], certified under the Clinical Laboratory Improvement Amendments of 1988 (CLIA), 42 U.S.C. 263a, to perform high complexity tests. Assay performance has been verified according to clinical laboratory regulatory requirements for use with specimens collected from individuals suspected of COVID-19. Test results are provided above. A result of Not Detected indicates that the viral RNA target is not present above the limit of detection, but does not preclude SARS-CoV-2 infection. False negative results may occur if a specimen is improperly collected, transported or handled; if amplification inhibitors are present; or if inadequate numbers of viral particles are present in the specimen. When a diagnostic test is negative, the possibility of a false negative result should be considered in the context of a patient's recent exposures and the presence of clinical signs and symptoms consistent with COVID-19. A result of Detected indicates that RNA from SARS-CoV-2 was detected and the patient is infected. As required or requested by public health authorities, positive specimens may be sent for additional testing. Positive and negative predictive values for this test are highly dependent on disease prevalence. A result of Invalid indicates that neither the viral RNA targets nor the internal control target was detected. An invalid result suggests the presence of inhibitors. Recollection and re-testing is recommended in the case of an invalid result. CDC COVID-19 criteria for testing on human specimens and clinical management guidance information are available at the CDC Coronavirus Disease 2019 (COVID-19) webpage under Information for Healthcare Professionals (https://www.cdc.gov/coronavirus/2019-ncov/hcp/index.html) Additional information about this and other EUA tests can be found in provider and patient fact sheets at the following FDA website: https://www.fda.gov/medical-devices/uzjyiddqnfj-mmrkepn-1289-mjqic-12-xtgmuspro- wpc-menogpnlcjdfem-yubvjpj-devices/pvwus-xcvraikusqk-ynih SARS-Cov-2 RNA Source [employer] Swab Diagnostic Studies: Results for orders placed or performed during the hospital encounter of 10/30/21 XR Cervical Spine 2 or 3 Views (Exam End: 10/30/2021 5:15 PM) Impression Baseline radiographic appearance of the cervical spine in patient status post C5-6 PCDF without findings to suggest complication. Thank you for letting us participate in the care of this patient. If you are a health care provider and have any questions regarding this report, please contact the number below. For patients who have questions please contact the health child care associate teacher that requested your imaging first. Head wo & Multiphase CTA Head/Neck (THROMBECTOMY PROTOCOL) (Exam End: 11/01/2021 10:35 PM) Impression CT HEAD WITHOUT CONTRAST: * No acute intracranial abnormality. MULTIPHASE CTA HEAD AND CTA NECK: * No intracranial large vessel occlusion. * No hemodynamically significant stenosis, aneurysm or dissection of anterior or posterior circulation. * Postsurgical changes in posterior neck. Preliminary report signed by: Tyron Roach at 11/01/2021 11:52 PM I have personally reviewed the image(s) and the resident's interpretation and agree with the findings, Janie Aguilar MD at 11/02/2021 12:47 AM Thank you for letting us participate in the care of this patient. If you are a health care provider and have any questions regarding this report, please contact the number below. For patients who have questions please contact the health child care associate teacher that requested your imaging first. Electronically signed by: Janie Aguilar MD, [facility] ([phone]), at 11/02/2021 12:47 AM XR Chest PA & Lateral (Generic) (Exam End: 11/02/2021 9:39 AM) Impression Trace bibasilar pleural effusions and atelectasis by posterior costophrenic angles. Thank you for letting us participate in the care of this patient. If you are a health care provider and have any questions regarding this report, please contact the number below. For patients who have questions please contact the health child care associate teacher that requested your imaging first. Electronically signed by: Tahira Medrano MD, [facility] ([phone]), at 11/02/2021 11:12 AM Inpatient Medications: Scheduled Meds: ??? sodium chloride 0.9 % (flush) 5 mL Intravenous BID ??? budesonide-formoteroL 2 Inhalation Inhalation BID ??? tiotropium bromide 2 puff Inhalation BID ??? gabapentin 900 mg Oral TID ??? heparin (porcine) 5,000 Units Subcutaneous 2 times per day ??? prazosin 6 mg Oral Nightly ??? pantoprazole EC 40 mg Oral Daily ??? metoprolol succinate XL 12.5 mg Oral Daily ??? lisinopriL 40 mg Oral Daily ??? levothyroxine 50 mcg Oral Daily ??? lamoTRIgine 200 mg Oral Daily ??? isosorbide mononitrate CR 30 mg Oral Daily ??? atorvastatin 40 mg Oral Daily ??? ARIPiprazole 5 mg Oral Daily ??? amLODIPine 5 mg Oral Daily ??? senna-docusate 2 tablet Oral BID ??? insulin lispro 1-4 Units Subcutaneous Q4H MARIA VICTORIA ??? acetaminophen 1,000 mg Oral Q6H MARIA VICTORIA ??? lidocaine 3 patch Transdermal Q24H And ??? lidocaine 3 patch Transdermal Q24H ??? sertraline 200 mg Oral Daily Continuous Infusions: PRN Meds: sodium chloride 0.9 % (flush), lidocaine, albuteroL, traMADoL, gelatin adsorbable, bacitracin zinc-polymyxin B, thrombin (Bovine), lidocaine- EPINEPHrine, ipratropium-albuteroL, nitroGLYcerin, nicotine polacrilex, clonazePAM, bisacodyL, magnesium hydroxide, polyethylene glycoL, magnesium citrate OR magnesium citrate, ondansetron OR ondansetron, prochlorperazine OR prochlorperazine, labetaloL, hydrALAZINE, glucose 40% oral geL OR dextrose 10% OR glucagon, bisacodyl EC Assessment: Ms. Jeannie Rico is a ??61 y.o.??female??h/o CAD s/p stents x 2 on ASA 81mg (stopped for surgery),anxiety, bipolar, PTSD, hypothyoidism, migraines, R wrist fracture, R ankle fracture, gastric bypass, hysterectomy, DM, smoker (quit in July 2021) who presents for elective cervical decompression fusion with Dr. Schumacher for myelopathic sx with unsteadiness, recent falls, BUE numbness, and right > left radicular arm pain. Medicine is consulted for intermittent hypoxia and trace pleural effusions seen on CXR. Despite diuresis trial yesterday with sufficient output, patient continues to intermittently require 2-3L NC cannula with exertion and while speaking, but otherwise remains asymptomatic from a respiratory standpoint, resting comfortably. I suspect that this is her baseline function in the setting of her likely preexisting COPD that was exacerbated by atelectasis and deconditioning during her hospitalization. At this point, would recommend evaluation for home O2 and outpatient PFTs for further work up. Otherwise, remaining recommendations will standing including continuing inhalers, nightly CPAP, and incentive spirometry with pulmonary toileting as well as working with PT/OT and mobilizing as tolerated. Would not continue diuresis as patient does not appear overtly overloaded. No signs of respiratory infection. Recommendations: - continue spiriva and symbicort and PRN duonebs - continue incentive spirometry and pulmonary toileting - PT/OT to improve deconditioning - outpatient PFTs -CPAP at night with outpatient referral for CPAP at home - eval for home O2 Darby Cruz MD Internal Medicine - PGY3 Medicine Consults #[id number] Recommendations discussed with primary treating team. Medicine Consult service will continue to follow. X Recommendations are above. Medicine Consult service will sign off. If clinical changes occur or new questions arise, page [phone]. Case discussed with Dr. Adal Trinidad. Associated attestation - Adal Trinidad MD - 11/04/2021 12:41 PM EDT Medicine Staff I saw and examined the patient and discussed their care with the medical team. I have reviewed all data and studies personally. My findings agree with those outlined by Dr. Cruz, whose note reflects our assessment and plan. Oxygen weaned off, with intermittent requirement in aluminum pourer which likely relates to sleep apnea. Hemodynamics remain excellent. Our suspicion for severe volume overload or a pulmonary embolus or pulmonary infection is very low. I expect as she mobilizes with rehab her oxygenation will improve. A target SpO2 > 88% is acceptable. I think she would benefit from CPAP at night. From my perspective on her oxygenation, she is safe to discharge to rehab. Adal Trinidad MD * David Byers RN - 11/04/2021 1:40 AM EDT OUTCOME EVALUATION NOTE: OUTCOME SUMMARY: A+Ox4, neuro status unchanged. VSS on 3LNC. Pt reporting 2/10 pain treated with scheduled tylenol. Pt appears to be resting comfortably overnight. Hernandez in place with adequate output. Safety maintained. ?? PLAN MOVING FORWARD: ?? Q4 NC Q4 VS Q4 BS Work with PT/OT Pain management Maintain Safety Discharge planning ?? INDIVIDUALIZED FALL PREVENTION INTERVENTIONS: ?? Patient-specific fall risk factors per assessment: recent surgery, generalized weakness, hospital environment, lines/wires ?? Assistance: 2 assist, FWW ?? Supervision: ??Hands on ?? Surveillance: Bed locked in low position, call damian within reach, purposeful hourly rounding, clutter free environment, bed/chair alarm on, family at bedside ?? Patient-specific fall prevention interventions for sensory deficits provided: Yes CPG GOAL OUTCOME EVALUATION: Continue care plan as documented. * Kimberly Lee MSW - 11/03/2021 3:50 PM EDT Went to meet with patient at the request of RNSARIKA.Patient reported she would go to the [facility] facility.She reported that the [facility] staff had told her they would be checking on her in the home while she was at Rehab which has made the decision easier. Kimberly Lee [facility] [phone] * Kanu Roberts RN - 11/03/2021 1:59 PM EDT OUTCOME EVALUATION NOTE: OUTCOME SUMMARY: A+Ox4, neuro status unchanged. VSS on 3LNC. Pt reporting 8/10 pain treated with prn meds. Safety maintained. ?? PLAN MOVING FORWARD: ?? DC to rehab INDIVIDUALIZED FALL PREVENTION INTERVENTIONS: ?? Patient-specific fall risk factors per assessment: recent surgery, generalized weakness, hospital environment, lines/wires ?? Assistance: 2 assist, FWW ?? Supervision: ??Hands on ?? Surveillance: Bed locked in low position, call damian within reach, purposeful hourly rounding, clutter free environment, bed/chair alarm on, family at bedside CPG GOAL OUTCOME EVALUATION: Continue care plan as documented. * Andres Nino, PT - 11/03/2021 1:33 PM EDT Physical Therapy Note Treatment Number PT: 3 Patient profile: Jeannie Rico is a 61 y.o. right handed female admitted on 10/30/2021. Pt presented to same day surgery with history of C5-6 stenosis and myelopathy. She underwent 10/30/21 C5-6 laminectomy and arthrodesis. She had issues with pain, hypotension, and lethargy on POD#1. She is being managed on 5- west. She has required straight caths due to urinary retention, and has had on and off issues with continued lethargy. Hernandez replaced due to retention. Interval History: Hospital medicine consulted- recommend trial of CPAP at night. Reports she had pain after walking, worked with OT earlier today. Continues issues with pain. Sleepy at times. Social History: Home set-up: Pt lives with he in an apt with 3 cats. is home, and has home PT and home therapy teacher services. Bathroom Set-up: tub shower with seat and grab bars. Stairs: reports there is a ramp to enter. Baseline Mobility: uses a rollator walker in the home, helps with pericare and with mobility as needed. Has started getting home PT. Sleeps in a regular bed. Equipment at home: rollator walker, rolling walker, wheelchair, shower chair, grab bars. Fall history: reports no recent falls, but reports she hurt her right knee in a fall in June, Pt groggy at times during history taking. ?? Precautions/Special Considerations: c-spine surgery- no lifting, avoid strain, Fall risk, UE weakness and incoordination bilaterally, right foot drop, and limited right knee flexion ROM on the right,decreased RLE strength. Lines: IV RUE, hernandez catheter, O2. Activity Orders: activity as tolerated, up with assistance. Diet: carb controlled. Mobility and Positioning Recommendations: ?? Pt. to utilize rolling walker and contact guard to min assist of 1-2 with gait belt for transfers with nursing. Encourage short walker with walker and follow of chair, 2 assist present with gait belt for safety. ?? Please encourage up to chair for meal times as able. Subjective: It hurts, it hurts, it comes and goes, had some right arm shooting pain in sitting that resolved with rest. I am going to [facility], regarding rehab. Objective: Patient seen for physical therapy and demonstrated the following: Pain: Reports 0/10 pre and post treatment session; but reported occ sharp shooting RUE pain and neck painas 10/10 with sitting or after standing, and some left leg/buttock pain with bed mobility. Left in supine with HOB elevated with ice pack on right side of neck and shoulder. Vital Signs: Heart Rate: 67 (end HR=72 rest) BP: 110/62 SpO2: 92 % (end 95% 2L) O2 Flow Rate (L/min): 2 L/min O2 Device: Nasal cannula ?? Pt in bed when PT arrived, she was sleepy and needed stimulation to arise. Perked up with stimulation. ?? Able to move UE in supine without issues, but more limited knee flexion in supine today, but moving bilateral ankles. ?? Supine to sit to right side of bed with cues and contact guard with HOB elevated using rail, With mod assist today due to pain, needed extra time and cues. ?? Able to sit EOB with contact guard and was steady, sits with head forward flexed, some RUE pain at times in sitting. ?? Stood 3x from bed with cues, gait belt and min assist to walker. ?? Stood for 1 minute the 1st time, and able to side step to right with walker and gait belt 5 steps with cues and min assist. ?? 2nd time stood for 1-2 minutes and marched in place 10x, occ posterior sway or loss of balance and needed min assist with gait belt to correct. Used ROM. ?? Stood a 3rd time with min assist, but fatigued quickly and sat back down. ?? Stand to sit with contact guard to min assist and cues. ?? Sit to supine with cues and min assist for LEs. ?? Left in bed with HOB elevated, UEs supported on pillows and bed alarm on with all needs in reach, RN aware of her status, ice on her neck. Education: Again discussed rehab, and pt remains agreeable, reviewed ther-ex, and need to call for assistance with all mobility. Discussed mobility progression and need for 2 assist with walker and gait belt for ambulation at this time. Assessment: Jeannie Rico was seen today for physical therapy treatment session for continuation of POC. Pt a bit sleepier today than yesterday, but agreeable to work with PT. She had some sharp pains in RUE that were not present yesterday. She continues to need cues, a walker and gait belt and 1-2 assist for transfer and short distances ambulation and she remains generally weak and deconditioned. She will benefit from and is agreeable to a rehab stay prior to returning home. Will continue PTto safely progress her mobility and function while she remains in-house. Pt will benefit from ongoing therapeutic interventions to achieve therapy goals. Discharge Recommendations: Based on the current findings, Anticipated Discharge Disposition (PT): acute rehabilitation facility, swing bed rehabilitation facility when medically ready for hospital discharge. Consult Recommendations: Inpatient rehab prior to returning home Equipment needs: Anticipated Equipment Needs at Discharge (PT): to be determined Physical Therapy Goals: To be achieved by 11/26/21:-The BELOW GOALS remain ONGOING- ?? 1. Pt. to demonstrate knowledge of safety limitations and precautions and will appropriately request assistance for functional activities and to mobilize. 2. Pt. to demonstrate understanding of AROM and breathing exercises. 3. Pt. to perform bed mobility with supervision. 4. Pt. to perform Sit<->stand and Stand Pivot transfers with supervision using a front wheeled walker. 5. Pt. to ambulate 150 feet with supervision using a front wheeled walker. ?? 6. Family or caregiver to demonstrate understanding of therapeutic interventions to support the care of the patient. ?? Plan: Therapy Frequency (PT): 3-5 times/wk for as outlined in initial evaluation. Time IN / OUT: 1305 to 1333 Total Minutes, Physical Therapy: 28 ; Billing Code: functional mobility ANDRES NINO PT Pager:[phone] Physical Therapy Inpatient Rehabilitation Department * Kimberly Lee MSW - 11/03/2021 11:50 AM EDT Met with patient at the request of RNCM.Patient reported that she was receiving excellent care and feels the staff are talking to her at a level she understands and are answering all of her questions. Patient reported that she tried to work with OT/PT without taking pain meds and said it was too painful.She just had some meds and is hoping that she can try to work with them later on this afternoon. Patient reports that she has a history of MH issues and works with a team of people including her therapist John King and her Casemanager Jodie at [facility] out of [place].Her team has been callingto check in on her while she has been Hospitalized.Patient reports she is on MH medications and hasnot had any side effects from the medications that she can not tolerate at this time.Patient ststesher has MH struggles also and [facility] will be checking on him while she is I rehab for a couple of weeks. Kimberly DIOR,[facility] [phone] * Amelie Howell, GRINDER OPERATOR [employer]OL - 11/03/2021 9:47 AM EDT Occupational Therapy Treatment Note Treatment Number OT: 2 Patient Dx: Jeannie Rico is a 61 y.o. 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 Pt is not s/p C5-C6 PCDF on 10/[address] Schumacher. Precautions/Special Considerations: fall risk, SBP 90-160, up with assist, activity as tolerated, up in chair TID, ambulate TID Interval History: Per RN Note 11/02/2021 Neuro status unchanged. Sating at 93- 96% on 3L NC. Pt endorsing pain -10/01, PRN meds given. Ativan PRN given for anxiety as well S: I could walk to the bathroom last time O: Patient seen for skilled OT treatment, and demonstrated the following: ?? Self-care/Functional Mobility ?? Pt supine in bed upon entry, agreeable to therapy, therapist asked pt about being premedicated prior to therapy, pt declining ?? Sup>sit with HOB elevated, bed rails. Pt required Min A with bringing R LE off bed ?? Pt seated EOB and attempted to perform sit>stand, suddenly winced and exclaimed pain in cervical incision area/ R shoulder, unable to move ?? Pt remained EOB holding R UE, rated pain as 10/10 ?? Pt reported that pain meds prior to activity would increase activity tolerance though she previously denied pre medication. RN in to provided pain meds, made plan with pt to return after meds tookeffect ?? Pt performed bed mobility to return to supine, Min A for R LE ?? Session terminated at this time (10:20am) for RN to provide pain medication ?? Returned to pt at 11:28 ?? Sup>sit Min A to bring R LE off bed ?? Pt somewhat dizzy sitting EOB, BP taken:109/68 ?? Pt sit>stands throughout session Min-Mod Ax2 ?? Pt ambulated ~10 feet with CGA, FWW ?? Pt seated at sink to complete ADLs, extended R arm forward to retreive ADL item and suddenly winced and exclaimed pain 10/10. Pt continued to demonstrate consistent and severe pain for ~2 min. Pain inconsistent with behaviors and not present with specific motions. ?? Pt unable to continue ADL activity, performed lateral stand step transfer back to recliner chairwith Mod A x2. ?? Pt provided education on importance of premedication for activity, admits understanding. ?? Pt left seated in recline chair with all needs met and in reach ?? Cognition: ?? Behavior / Mood: alert, cooperative and labile ?? Alert and oriented to: person, place, time and situation ?? Follows commands: 1 step, 75% of the time, requires increased time and requires repetition ?? Attention: WFL ?? Safety awareness: impulsive ?? 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 minimal vision R eye ?? Strength and ROM: ?? Pt strength and ROM in RUE improved 4/5 strength with report of improvement in sensation ?? Endurance:fair ?? Vitals: pt reported feeling lightheaded following sup>sit, BP taken: 109/68. ?? Pt oxygen found not to be turned on, this travel writer placed pt on 2 L. VSS through remainder of session Pain: Pt articulates pain in R cervical/ shoulder area intermittently throughout session. Pain not consistent with specific behaviors and appears somewhat sporadic. Pt rates pain at 10/10 Education: Pt/family/caregiver education ongoing regarding: Role of occupational therapy/rehabilitation, Transfers, Assistive device/technique, ADL, Exercise, Positioning, Safety, Precautions/Protocol, Functional Mobility and Balance. Staff Communication: Patient status, treatment, and mobility recommendations discussed with nursing/other staff. ASSESSMENT: Pt seen today for occupational therapy services. Pt supine in bed agreeable to therapy.Pt denied pre medication for pain management prior to session. Attempted to stand pt however pt displayed severe pain behaviors central to R cervical area and rated pain 10/10. Pt placed back in bed and provided education on benefit of premedication prior to therapy, RN notified and pt provided medication. Returned to pt within 1 hour and resumed session. Pt mobilized with Min-Mod A x2 and FWW short distance and tolerated well, however was unable to complete ADL tasks at sink 2' pain. Will continue to encourage participation in therapy. Pt will benefit from ongoing therapeutic interventions to achieve pt's and therapy goals Anticipated Discharge Disposition (OT): acute rehabilitation facility Equipment Recommendations: TBD ?? Daily schedule / Staff Recommendations: Transfer to recliner chair or commode as appropriate with min assist of 2 and FWW Encourage participation in ADL's by providing set up A on tray table and physical assist only as needed Occupational Therapy Goals: To be achieved by November 16, 2021. Pt will complete self feeding after complete set up with necessary tools and opening packages/cutting foods to consume 75% of all meals. Pt will complete toileting routine including transfer, clothing management, and hygiene with min assist. Pt will complete UB bathing and dressing in sitting with supervision assist using compensatory strategies as needed. Pt will complete LB dressing with min assist using AE as needed. Pt will complete functional transfers and mobility of a household distance with supervision assist for participation in ADLs using self pacing as needed. Pt will participate in UE strength/ROM/coordination exercises as appropriate for improved participation in daily tasks. Therapy Frequency (OT): 1-3 times/wk Total Minutes, Occupational Therapy: 63 (3x SCHM 1x functional mobility) 9:47-10:20 11:28-11:58 Herminio MIGUEL Occupational Therapy Rehabilitation Department Amelie NEGRO Pager #[phone] Patient status, treatment interventions, and goals discussed with student. I am in agreement with all details and associated flowsheet rows as documented and was present for all aspects of the patient treatment session. * Darby Cruz MD - 11/03/2021 7:54 AM EDT Medicine Consults Progress Note ID: Ms. Jeannie Rico is a ??61 y.o.??female??h/o CAD s/p stents x 2 on ASA 81mg (stopped for surgery), anxiety, bipolar, PTSD, hypothyoidism, migraines, R wrist fracture, R ankle fracture, gastric bypass, hysterectomy, DM, smoker (quit in July 2021) who presents for elective cervical decompression fusion with Dr. Schumacher for myelopathic sx with unsteadiness, recent falls, BUE numbness, and right> left radicular arm pain. Medicine is consulted for intermittent hypoxia and trace pleural effusions seen on CR. 24 Hour Events/Subjective: - A&O x 4 - AVSS on 3L NC satting 95& - patient reports her breathing feels improved today and she able to clear her lungs more by coughing with some brown sputum - denies fevers, chills, chest pain, pleurisy, wheezing, URI sx, dizziness, nausea, vomiting, or any other acute sx Vitals: Last value Range last 24 hrs Temperature Temp: 36.9 ??C (98.4 ??F) Temp: [36.4 ??C (97.5 ??F)-37.2 ??C (99 ??F)] Heart Rate Heart Rate: 65 Heart Rate: [65-70] Blood Pressure BP: 125/58 BP: (112-151)/(51-69) Respiratory Rate Resp: 18 Resp: [16-18] SpO2 SpO2: 95 % SpO2: [91 %-95 %] Ins/Outs: Intake/Output Summary (Last 24 hours) at 11/03/2021 0843 Last data filed at 11/03/2021 0411 Gross per 24 hour Intake 700 ml Output 2175 ml Net -1475 ml Weights: Admit weight: 96.71 kg Patient Vitals for the past 168 hrs: Weight 10/30/21 0753 96.7 kg (213 lb 3.2 oz) Physical Exam: General: Chronically ill-appearing obese female in NAD, A&O x 4 Head: NCAT Eyes: EOMI, PERRLA, no scleral icterus Oropharynx: MMM, no erythema, exudates, or lesions Neck: Supple, trachea midline, no thyromegaly; neck veins mildly distended; cervical spine with long-vertical surgical scar on posterior side closed by artie; no bleeding, purulence, or erythema Lungs: Improved air movement in upper lobes; mildly diminished in lower lobes; no rales or wheezing; no clubbing, cyanosis, or tachypnea on 3L NC; no noted wheezing Heart: RRR w/o M/R/G/C with loud S1 Abdomen: Soft, NT/ND Extremities: Trace non-pitting edema to BLE; 2+ DP pulses Neuro: Cranial Nerves 2-12 grossly intact; no gross focal deficits Skin: No gross rashes, lesions, or ecchymoses; noted hirsutism Lymphatics: No cervical or clavicular LAD Labs: Recent Labs 10/31/21 0814 WBC 10.6* HGB 13.0 HCT 40.9 PLATELET 210 Recent Labs 10/31/21 1221 NA 134* K 4.7 CL 98 CO2 28 BUN 12 CREATININE 0.74 No results for input(s): AST, ALT, ALKPHOS, BILITOT, BILIDIR in the last 168 hours. Recent Labs 10/31/21 1221 CALCIUM 9.0 MAGNESIUM 0.78 PHOS 4.4 No results for input(s): INR, PT, PTT in the last 168 hours. Recent Labs 10/31/21 1221 TROPONINT <0.01 Recent Labs 11/03/21 0744 11/03/21 0413 11/03/21 0003 11/02/21 1951 11/02/21 1535 11/02/21 1157 POCGLU 110 103 100 116 100 77 Microbiology: Microbiology Results (Last 30 days) Procedure Component Value Units Date/Time COVID-19 PCR [[id number]] Collected: 11/02/21 1615 Lab Status: Final result Specimen: Nasopharyngeal Swab Updated: 11/02/212002 SARS-CoV-2 RNA PCR Not Detected Comment: This result should be interpreted in combination with the clinical observations, patient history and epidemiological information. For testing of asymptomatic individuals, assay performance characteristics and clinical utility have not been evaluated. Testing for SARS-CoV-2 (Severe acute respiratory syndrome coronavirus 2, formerly known as 2019 novel coronavirus or 2019-nCoV) to aid in the diagnosis of COVID-19 is performed using the Simplexa COVID-19 Direct Assay by [employer] as authorized by the FDA issued Emergency Use Authorization (EUA). This assay is intended for In-vitro Diagnostic (IVD) use with nasopharyngeal swabs collected from individuals meeting the CDC criteria for testing. The assay is performed based on the instructions for use and additional guidance provided by the FDA. Testing is performed in the Microbiology Laboratory within the Department of Pathology and Laboratory Medicine at [facility], certified under the Clinical Laboratory Improvement Amendments of 1988 (CLIA), 42 U.S.C. section 263a, to perform high complexity tests. Assay performance has been verified according to clinical laboratory regulatory requirements. Test results are provided above. A result of Not Detected indicates that the viral RNA target is not present but does not preclude SARS-CoV-2 infection. False negative results may occur if a specimen is improperly collected, transported or handled; if amplification inhibitors are present; or if inadequate numbers of viral particles are present in the specimen. A result of Detected suggests a current or recent infection and the patient is presumed to be infected. Positive and negative predictive values for this test are highly dependent on disease prevalence. A result of Invalid indicates the inability to conclusively determine the presence or absence of SARS-CoV-2 RNA in the sample which can be due to a variety of factors. Recollection is recommended in the case of an invalid result. CDC COVID-19 criteria for testing on human specimens and clinical management guidance information are available at the CDC Coronavirus Disease 2019 (COVID-19) webpage under Information for Healthcare Professionals (https://www.cdc.gov/coronavirus/2019-ncov/hcp/index.html). Additional information about this and other EUA tests can be found in provider and patient fact sheets at the following FDA website: https://www.fda.gov/medical-devices/zvglvjektty-drbkqyj-6502-ojvgo-53-gwnnfnefq- ovq-icjfbhulnojchu-sqsvjfg-devices/oqisg-zxklumjzcmt-mtre SARS-CoV-2 Source [employer] Swab COVID-19 PCR [[id number]] Collected: 10/27/21 1132 Lab Status: Final result Specimen: Nasopharyngeal Swab Updated: 10/28/21821 SARS-CoV-2 RNA Not Detected Comment: This result should be interpreted in combination with the clinical observations, patient history and epidemiological information in making a final diagnosis. For testing of asymptomatic individuals, assay performance characteristics and clinical utility have not been evaluated. Testing for SARS-CoV-2 (Severe acute respiratory syndrome coronavirus 2, formerly known as 2019 novel coronavirus or 2019-nCoV) to aid in the diagnosis of COVID-19 is performed using the [employer] m SARS-CoV-2 Assay as authorized by the FDA Emergency Use Authorization (EUA). This EUA assay is intended for In-vitro Diagnostic (IVD) use with respiratory specimens such as nasopharyngeal swabs collected from individuals during the acute phase of infection. This assay is performed based on the instructions for use provided by [employer] and additional guidance provided by CDC and FDA. Testing is performed in the Clinical [facility] Laboratory within the Department of Pathology and Laboratory Medicine at [facility], certified under the Clinical Laboratory Improvement Amendments of 1988 (CLIA), 42 U.S.C. 263a, to perform high complexity tests. Assay performance has been verified according to clinical laboratory regulatory requirements for use with specimens collected from individuals suspected of COVID-19. Test results are provided above. A result of Not Detected indicates that the viral RNA target is not present above the limit of detection, but does not preclude SARS-CoV-2 infection. False negative results may occur if a specimen is improperly collected, transported or handled; if amplification inhibitors are present; or if inadequate numbers of viral particles are present in the specimen. When a diagnostic test is negative, the possibility of a false negative result should be considered in the context of a patient's recent exposures and the presence of clinical signs and symptoms consistent with COVID-19. A result of Detected indicates that RNA from SARS-CoV-2 was detected and the patient is infected. As required or requested by public health authorities, positive specimens may be sent for additional testing. Positive and negative predictive values for this test are highly dependent on disease prevalence. A result of Invalid indicates that neither the viral RNA targets nor the internal control target was detected. An invalid result suggests the presence of inhibitors. Recollection and re-testing is recommended in the case of an invalid result. CDC COVID-19 criteria for testing on human specimens and clinical management guidance information are available at the CDC Coronavirus Disease 2019 (COVID-19) webpage under Information for Healthcare Professionals (https://www.cdc.gov/coronavirus/2019-ncov/hcp/index.html) Additional information about this and other EUA tests can be found in provider and patient fact sheets at the following FDA website: https://www.fda.gov/medical-devices/vkjgjgtjqal-stnggps-5054-yrqob-48-fjnnajuni- slt-yxchzpybtghcph-eoknwdi-devices/tobye-zavoafzdkvz-hhld SARS-Cov-2 RNA Source [employer] Swab Diagnostic Studies: Results for orders placed or performed during the hospital encounter of 10/30/21 XR Cervical Spine 2 or 3 Views (Exam End: 10/30/2021 5:15 PM) Impression Baseline radiographic appearance of the cervical spine in patient status post C5-6 PCDF without findings to suggest complication. Thank you for letting us participate in the care of this patient. If you are a health care provider and have any questions regarding this report, please contact the number below. For patients who have questions please contact the health child care associate teacher that requested your imaging first. Head wo & Multiphase CTA Head/Neck (THROMBECTOMY PROTOCOL) (Exam End: 11/01/2021 10:35 PM) Impression CT HEAD WITHOUT CONTRAST: * No acute intracranial abnormality. MULTIPHASE CTA HEAD AND CTA NECK: * No intracranial large vessel occlusion. * No hemodynamically significant stenosis, aneurysm or dissection of anterior or posterior circulation. * Postsurgical changes in posterior neck. Preliminary report signed by: Tyron Roach at 11/01/2021 11:52 PM I have personally reviewed the image(s) and the resident's interpretation and agree with the findings, Janie Aguilar MD at 11/02/2021 12:47 AM Thank you for letting us participate in the care of this patient. If you are a health care provider and have any questions regarding this report, please contact the number below. For patients who have questions please contact the health child care associate teacher that requested your imaging first. Electronically signed by: Janie Aguilar MD, [facility] ([phone]), at 11/02/2021 12:47 AM XR Chest PA & Lateral (Generic) (Exam End: 11/02/2021 9:39 AM) Impression Trace bibasilar pleural effusions and atelectasis by posterior costophrenic angles. Thank you for letting us participate in the care of this patient. If you are a health care provider and have any questions regarding this report, please contact the number below. For patients who have questions please contact the health child care associate teacher that requested your imaging first. Electronically signed by: Tahira Medrano MD, [facility] ([phone]), at 11/02/2021 11:12 AM Inpatient Medications: Scheduled Meds: ??? furosemide 20 mg Intravenous Once ??? budesonide-formoteroL 2 Inhalation Inhalation BID ??? tiotropium bromide 2 puff Inhalation BID ??? gabapentin 900 mg Oral TID ??? heparin (porcine) 5,000 Units Subcutaneous 2 times per day ??? prazosin 6 mg Oral Nightly ??? pantoprazole EC 40 mg Oral Daily ??? metoprolol succinate XL 12.5 mg Oral Daily ??? lisinopriL 40 mg Oral Daily ??? levothyroxine 50 mcg Oral Daily ??? lamoTRIgine 200 mg Oral Daily ??? isosorbide mononitrate CR 30 mg Oral Daily ??? atorvastatin 40 mg Oral Daily ??? ARIPiprazole 5 mg Oral Daily ??? amLODIPine 5 mg Oral Daily ??? senna-docusate 2 tablet Oral BID ??? insulin lispro 1-4 Units Subcutaneous Q4H MARIA VICTORIA ??? acetaminophen 1,000 mg Oral Q6H MARIA VICTORIA ??? lidocaine 3 patch Transdermal Q24H And ??? lidocaine 3 patch Transdermal Q24H ??? sertraline 200 mg Oral Daily Continuous Infusions: PRN Meds: albuteroL, traMADoL, gelatin adsorbable, bacitracin zinc-polymyxin B, thrombin (Bovine), lidocaine-EPINEPHrine, ipratropium-albuteroL, nitroGLYcerin, nicotine polacrilex, clonazePAM, bisacodyL, magnesium hydroxide, polyethylene glycoL, magnesium citrate OR magnesium citrate, ondansetron OR ondansetron, prochlorperazine OR prochlorperazine, labetaloL, hydrALAZINE, glucose 40% oral geL OR dextrose 10% OR glucagon, bisacodyl EC Assessment: Ms. Jeannie Rico is a ??61 y.o.??female??h/o CAD s/p stents x 2 on ASA 81mg (stopped for surgery),anxiety, bipolar, PTSD, hypothyoidism, migraines, R wrist fracture, R ankle fracture, gastric bypass, hysterectomy, DM, smoker (quit in July 2021) who presents for elective cervical decompression fusion with Dr. Schumacher for myelopathic sx with unsteadiness, recent falls, BUE numbness, and right > left radicular arm pain. Medicine is consulted for intermittent hypoxia and trace pleural effusions seen on CXR. Patient reports subjective improvement with incentive spirometry and with restarting of home inhalers. Pt's oxygen requirements are stable and for now would continue to monitor on conservative therapy with incentive spirometry, inhalers, and COPD. Patient did not appear to be placed on CPAP at night and would recommend trialing CPAP when sleeping to improve lung volumes. If no improvement in oxygen requirements, can consider repeat CXR in the AM. Recommendations: - continue spiriva and symbicort and PRN duonebs - continue incentive spirometry and pulmonary toileting - PT/OT to improve deconditioning - consider f/u outpatient PFTs -CPAP at night Darby Cruz MD Internal Medicine - PGY3 Medicine Consults #[id number] X Recommendations discussed with primary treating team. Medicine Consult service will continue to follow. Recommendations are above. Medicine Consult service will sign off. If clinical changes occur or newquestions arise, page [phone]. Case discussed with Dr. Adal Trinidad. Associated attestation - Adal Trinidad MD - 11/03/2021 4:27 PM EDT Medicine Staff I saw and examined the patient and discussed their care with the medical team. I have reviewed all data and studies personally. My findings agree with those outlined by Dr. Cruz, whose note reflects our assessment and plan. Adal Trinidad MD * David Byers RN - 11/03/2021 1:31 AM EDT OUTCOME EVALUATION NOTE: OUTCOME SUMMARY: A+Ox4, neuro status unchanged. VSS on 3LNC. Pt reporting 8/10 pain treated with prn meds. Pt appears to be resting comfortably overnight. Hernandez in place with adequate output. Safety maintained. PLAN MOVING FORWARD: Q4 NC Q4 VS Q4 BS Work with PT/OT Pain management Maintain Safety Discharge planning ?? INDIVIDUALIZED FALL PREVENTION INTERVENTIONS: ?? Patient-specific fall risk factors per assessment: recent surgery, generalized weakness, hospital environment, lines/wires ?? Assistance: 2 assist, FWW ?? Supervision: ??Hands on ?? Surveillance: Bed locked in low position, call damian within reach, purposeful hourly rounding, clutter free environment, bed/chair alarm on, family at bedside ?? Patient-specific fall prevention interventions for sensory deficits provided: Yes CPG GOAL OUTCOME EVALUATION: Continue care plan as documented. * Andres Nino, PT - 11/02/2021 1:32 PM EDT Physical Therapy Note Treatment Number PT: 2 Patient profile: Jeannie Rico is a 61 y.o. right handed female admitted on 10/30/2021. Pt presented to same day surgery with history of C5-6 stenosis and myelopathy. She underwent 10/30/21 C5-6 laminectomy and arthrodesis. She had issues with pain, hypotension, and lethargy on POD#1. She is being managed on 5- west. She has required straight caths due to urinary retention, and has had on and off issues with continued lethargy. Hernandez replaced due to retention. Interval History: hernandez catheter placed, head CT overnight negative was done due to concern of RLE weakness. More alert today, still on O2. Medicine team consulted. Social History: Home set-up: Pt lives with he in an apt with 3 cats. is home, and has home PT and home therapy teacher services. Bathroom Set-up: tub shower with seat and grab bars. Stairs: reports there is a ramp to enter. Baseline Mobility: uses a rollator walker in the home, helps with pericare and with mobility as needed. Has started getting home PT. Sleeps in a regular bed. Equipment at home: rollator walker, rolling walker, wheelchair, shower chair, grab bars. Fall history: reports no recent falls, but reports she hurt her right knee in a fall in June, Pt groggy at times during history taking. ?? Precautions/Special Considerations: c-spine surgery- no lifting, avoid strain, Fall risk, UE weakness and incoordination bilaterally, right foot drop, and limited right knee flexion ROM on the right,decreased RLE strength. Lines: IV RUE, hernandez catheter, O2. Activity Orders: activity as tolerated, up with assistance. Diet: carb controlled. Mobility and Positioning Recommendations: ?? Pt. to utilize rolling walker and contact guard to min assist of 1-2 with gait belt for transfers with nursing. Encourage short walker with walker and follow of chair, 2 assist present with gait belt for safety. ?? Please encourage up to chair for meal times as able. Subjective: That is about it, I have to sit, after walking a short distance today. Objective: Patient seen for physical therapy and demonstrated the following: Pain: Reports 610 neck and shoulder pain pre and post treatment session. Vital Signs: Heart Rate: (74-80 during session.) BP: 123/53 SpO2: 91 % (91-94% end session at rest on 2L) O2 Flow Rate (L/min): 2 L/min O2 Device: Nasal cannula ?? Pt in bed when PT arrived, friendly and pleasant, and alert and talkative. ?? Moving RLE more actively in bed today. ?? Reviewed deep breathing, and IS use to 1000ml. ?? Able to also move right ankle actively with ankles pumps which she could not do yesterday. Also more coordinated movement of UEs today, able to bring soda can to mouth without issues. ?? Supine to sit to right side of bed with cues and contact guard with HOB elevated using rail, needed extra time and cues. ?? Able to sit EOB with contact guard and was steady, head still forward flexed some. ?? Sit to and from bed with gait belt with cues and min assist, sat abruptly 1st time with min assist for safety. ?? Sit to stand a 2nd time with cues and contact guard, able to pivot to right to recliner with minassist and cues with walker and extra time and cues. ?? Stand to sit with cues and contact guard. ?? Rested in recliner for several minutes, received a phone call. ?? Pt then able to stand from recliner with cues and contact guard to min assist. ?? Ambulated 6 ft with rolling walker and gait belt with contact guard to min assist, and 2nd follow with recliner, with cues, step to gait, slight sway, decreased DAMIR, decreased step length. ?? Stand to sit with contact guard and cues. ?? Then returned to recliner with assist in recliner with pillows for UEs and LE support. Left withchair alarm on and all need in reach, and educated to call for assistance with all mobility. Education: Again discussed rehab, and pt remains agreeable, reviewed ther-ex, and need to call for assistance with all mobility. Assessment: Jeannie Rico was seen today for physical therapy treatment session for continuation of POC. Pt more alert today with no lethargy during session. He had improved coordination of UEs andRLE today. She continues to need cues, a walker and gait belt and 1-2 assist for transfer and shortdistances ambulation and she remains generally deconditioned. She will benefit from and is agreeable to a rehab stay prior to returning home. Will continue PT to safely progress her mobility and function while she remains in-house. Pt will benefit from ongoing therapeutic interventions to achieve therapy goals. Discharge Recommendations: Based on the current findings, Anticipated Discharge Disposition (PT): acute rehabilitation facility, swing bed rehabilitation facility when medically ready for hospital discharge. Consult Recommendations: Inpatient rehab prior to returning home Equipment needs: Anticipated Equipment Needs at Discharge (PT): to be determined Physical Therapy Goals: To be achieved by 11/26/21:-The BELOW GOALS remain ONGOING- ?? 1. Pt. to demonstrate knowledge of safety limitations and precautions and will appropriately request assistance for functional activities and to mobilize. 2. Pt. to demonstrate understanding of AROM and breathing exercises. 3. Pt. to perform bed mobility with supervision. 4. Pt. to perform Sit<->stand and Stand Pivot transfers with supervision using a front wheeled walker. 5. Pt. to ambulate 150 feet with supervision using a front wheeled walker. ?? 6. Family or caregiver to demonstrate understanding of therapeutic interventions to support the care of the patient. ?? Plan: Therapy Frequency (PT): 3-5 times/wk for as outlined in initial evaluation. Time IN / OUT: 1255 to 1332 Total Minutes, Physical Therapy: 37 ; Billing Code: functional mobility ANDRES NINO, PT Pager:[phone] Physical Therapy Inpatient Rehabilitation Department * Parvin Barksdale RN - 11/02/2021 10:28 AM EDT Based on discussions with the multi-disciplinary healthcare team, the patient would benefit from acute/swing level of care at discharge. ?? I have met with the Patient to discuss discharge planning needs. I have provided the [facility] Office of Care Management letter from the Supervisor [employer] pertaining to rehab referrals. I have also provided a letter describing our affiliations within the [facility] and educatedthem about their right to choose where referrals are. ?? Provided patient with [facility] Star Quality Rating for SNF, LTAC and/or IRF hand out. ?? I reviewed the different levels of rehab including SNF, swing, acute and LTAC with the Patient. ?? The Patient has been provided a list of facilities within their preferred geographic area. ?? I have requested that the Patient provide at least three choices for referral. ?? The Patient have requested referrals to: 1. [facility] [address] [place] [address] ?? 2. [facility] Acute Rehabilitation and Sub-Acute (Swing) Rehab Levels of Care [address] [place] [address] ?? 3. [facility] (Swing) ([facility]) [address] [place] [address] ?? PHONE: [phone] FAX: [phone] ?? Expected date of discharge: 11/03/21 Has patient received the COVID vaccine: Yes Booster: Yes Does patient have COVID vaccine card: Yes Copy of Card Obtained: No Note routed to Rail [employer] who will communicate referrals to facilities and provide any required information. Parvin Barksdale MSN-Ed, RN ACM resident medical officer Office of Care Management Pager #[phone] * Earlene Lee RN - 11/02/2021 12:14 AM EDT Patient desated to 70s on 3l NC o2, on 4L o2 NC, sat is 94%. Provider aware. Patient had a ct head and neck as her RLE was 2/5 strength at bedtime, and family was concerned about patient's shorter responses and confusion, though was AOx4 for this travel writer's check of orientationat bedtime. Provider aware. * Andres Nino, PT - 11/01/2021 11:29 AM EDT Physical Therapy Evaluation Patient profile: Jeannie Rico is a 61 y.o. right handed female admitted on 10/30/2021. Pt presented to same day surgery with history of C5-6 stenosis and myelopathy. She underwent 10/30/21 C5-6 laminectomy and arthrodesis. She had issues with pain, hypotension, and lethargy on POD#1. She is being managed on 5- west. She has required straight caths due to urinary retention, and has had on and off issues with continued lethargy. Patient with the following active problems: Past Medical History: Diagnosis Date Depression Diabetes mellitus Hypertension Obesity, S/P remote gastric bypass in 1995, prior VBG 05/09/2013 Osteoporosis Suicide attempt 08/02/2019 Thyroid disease Active Non-Hospital Problems Diagnosis Cervical spinal stenosis Cataract of right eye Right leg weakness Chronic pain of right ankle Bilateral leg edema Vitamin D deficiency Vitamin B12 deficiency Generalized weakness Asthma Benign essential hypertension Bulimia Chronic obstructive pulmonary disease Constipation Diabetes mellitus, type II Dizziness Hyperlipidemia Obstructive sleep apnea (adult) (pediatric) Osteoarthrosis Seizures Coronary artery disease Headache Bipolar disorder Low back pain Hypothyroidism, acquired Borderline personality disorder Osteoporosis Smokes cigarettes GERD (gastroesophageal reflux disease) Anxiety Depression Post traumatic stress disorder (PTSD) Hidradenitis suppurativa Chronic pain Cervicalgia Lumbago Past Surgical History: Procedure Laterality Date CHOLECYSTECTOMY, OPEN 1991 CORONARY ANGIOPLASTY WITH STENT PLACEMENT 2012 stent to LAD CREATED BY INTERFACE a carotid bypass Procedure Date: Unknown DENTAL SURGERY 1998 complete dental extractions GASTRIC BYPASS SURGERY 05/05/2000 open, non-divided. Dr Trejo HYSTERECTOMY, TOTAL ABDOMINAL 1986 LIPECTOMY 2001 PRO ARTHRODESIS, POST/POSTEROLAT TQ, SNGLE INTERSPACE; CERVICAL BELOW C2 SEGMNT N/A 10/30/2021 @ARTHRODESIS, POSTERIOR CERVICAL SPINE (WRVU 17.4) performed by Campos Schumacher MD at [facility] MAIN OR PRO DUDLEY W/O FACETEC FORAMOT/DSKC 1/ VRT SEG, CERVICAL N/A 10/30/2021 LAMINECTOMY, CX W/EXPLOR , W/O FACETECTOMY, 1 OR 2 SEGMENTS (WRVU 17.61) performed by Campos Schumacher MD at [facility] MAIN OR PRO POSTERIOR SEGMENTAL INSTRUMENTATION 3-6 VRT SEG N/A 10/30/2021 POST SPINAL INSTRUMENTATION, 3-6 VERTEBRA, NON SEGMENTAL (WRVU 12.56) performed by Campos Schumacher MD at [facility] MAIN OR PRO UPPER GI ENDOSCOPY, BIOPSY N/A 12/03/2015 EGD WITH BIOPSY performed by Ken Sanders MD at [facility] ENDOSCOPY PRO UPPER GI ENDOSCOPY, BIOPSY N/A 09/19/2018 UPPER GASTROINTESTINAL ENDOSCOPY,WITH BIOPSY SINGLE OR MULTIPLE (WRVU 2.49) performed by Tyron Mercado MD at [facility] ENDOSCOPY TONSILLECTOMY UPPER GI ENDOSCOPY, EXAM 12/04/2010 UPPER GI ENDOSCOPY performed by DEE WRIGHT at [facility] ENDOSCOPY Social History: Home set-up: Pt lives with he in an apt with 3 cats. is home, and has home PT and home therapy teacher services. Bathroom Set-up: tub shower with seat and grab bars. Stairs: reports there is a ramp to enter. Baseline Mobility: uses a rollator walker in the home, helps with pericare and with mobility as needed. Has started getting home PT. Sleeps in a regular bed. Equipment at home: rollator walker, rolling walker, wheelchair, shower chair, grab bars. Fall history: reports no recent falls, but reports she hurt her right knee in a fall in June, Pt groggy at times during history taking. Precautions/Special Considerations: c-spine surgery- no lifting, avoid strain, Fall risk, UE weakness and incoordination bilaterally, right foot drop, and limited right knee flexion ROM on the right,decreased RLE strength. Lines: IV RUE Activity Orders: activity as tolerated, up with assistance. Diet: carb controlled. Mobility and Positioning Recommendations: Pt. to utilize rolling walker and contact guard to min assist of 2 for transfers with nursing. Please encourage up to chair for meal times as able. Would follow with chair if any attempts to mobilize or ambulate more than pivoting to chair. Has only pivoted to a chair at this point. Subjective: ???My helps me at home.?? I have medical marijuana at home. I want to go to rehab, pt stated at end of session. Objective: Pt seen for evaluation today; pt seen on in collaboration with OT; she was very groggy when we arrived, but perked up some during session. RN aware of pt's status. Pain: Pt reports 6-7/10 at rest in her neck, and after mobility reported 8-9/10 pain in neck; left with an ice back for neck. Vital Signs: Heart Rate: 63 (69 in sitting) BP: 123/65 (sitting reported dizzy 127/76) SpO2: 92 % (90% in sitting when dizzy.) O2 Flow Rate (L/min): 3 L/min O2 Device: Nasal cannula Mental Status: very groggy initially, but perked up as session progressed. Friendly and cooperative. Vision: not tested, but at times closed eyes. Skin: bruises BUEs, cervical incision bandaged posteriorly. Forward flexes head in sitting. IV RUE. Musculoskeletal: ROM: limited AROM of Bilateral shoulders, and limited AROM of right and knees- has a right foot drop, but able to wiggle toes, has increased extensor tone in RLE and keeps knee extended in supine with tone; able to flex knee ~ 40 degrees in sitting with extra times. Strength: decreased RLE, but unable to tested; moves LLE against gravity. Incoordination of BUEs- needed assist to feed self today- see OT note. Sensation: intact to light touch in the LEs. Bed Mobility: Supine to Sit: to right side of bed via pivoting with min assist and cues. Sit to Supine: not done left sitting in reclined in recliner. Transfers: Sit to Stand: with min assist of 2 and cues. Stand to Sit: with contact guard of 2 and cues. Bed to Chair: with min assist of one and contact guard of a 2nd pivoting to right with cues and rolling walker. Gait: Pivoted a few steps to the right with walker with min assist of one and contact guard of a 2nd today. Stairs: not done. Balance: Sitting Static: able to sit EOB with contact guard- forward flexed head. Standing Static: with walker with contact guard Standing Dynamic / Gait: with walker with contact guard to min assist of 1-2. Education: family has been educated on Bed mobility, Transfers, Assistive device/technique, Exercise, Breathing exercises, Positioning, Safety , Equipment use, Gait , Role of therapy, Balance, Discharge planning, and to call for assistance with all mobility and needs reinforcement. Patient status, treatment, and mobility recommendations discussed with nursing. Ther-ex: reviewed AROM and deep breathing ther-ex. Assessment: Jeannie Rico was seen today for physical therapy evaluation. Patient presenting withinitial grogginess and impaired response time, but perked up some as session progressed. She has impaired mobility, strength, balance, and function, and needs 1-2 assist with walker for safety with all mobility at this time. She also continues to have issues with neck pain and safety awareness and coordination issues. She needed assistance with mobility and feeding today. She is weak and generally deconditioned from surgery and medical issues, and she will benefit from and is agreeable to rehabprior to returning home. Will continue PT to safely progress patient's mobility and function while she remains in-house working toward a safe d/c plan. Discharge Recommendations: Based on the current findings, Anticipated Discharge Disposition (PT): acute rehabilitation facility, swing bed rehabilitation facility when medically ready for hospital discharge. Consult Recommendations: No other consults recommended at this time. Equipment needs: Anticipated Equipment Needs at Discharge (PT): to be determined Goals: To be achieved by 11/26/21: Pt. to demonstrate knowledge of safety limitations and precautions and will appropriately request assistance for functional activities and to mobilize. Pt. to demonstrate understanding of AROM and breathing exercises. Pt. to perform bed mobility with supervision. Pt. to perform Sit<->stand and Stand Pivot transfers with supervision using a front wheeled walker. Pt. to ambulate 150 feet with supervision using a front wheeled walker. Family or caregiver to demonstrate understanding of therapeutic interventions to support the care of the patient. Plan: Therapy Frequency (PT): 3-5 times/wk for therapy including balance training, bed mobility training, gait training, home exercise program, motor coordination training, neuromuscular re-education, orthotic fitting and training, patient/family education, postural re-education, range of motion, st rengthening, stretching, transfer training, wheelchair managment/propulsion training, and d/c planning, functional mobility training, selfcare and home management training . 2017 PT Evaluation Code Rationale: Diagnosis & Pertinent Co-Morbidities, personal factors, and present illness affecting Plan of Care: (see above); Additional personal factors or co- morbidities that impact plan: Total # of Factors: 0 1-2 3+ x Examination of body system impairments, functional limitations and behaviors, and/or participation restrictions. Addressing 1-2 elements Addressing 3 + elements Addressing 4 + elements x Clinical presentation: See assessment above. Stable/Uncomplicated Evolving/Fluctuating Symptoms Unstable/Unpredictable x Clinical decision making of high complexity based on pt's functional performance as outlined in this evaluation. Time IN / OUT: 1035 to 1129 Total Minutes, Physical Therapy: 54 Billing Code: miles NINO, PT Pager: [phone] Physical Therapy Inpatient Rehabilitation Department * Pham Shannon, OT - 11/01/2021 10:35 AM EDT Occupational Therapy Evaluation Patient profile: Jeannie Rico is a 61 y.o. 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 Pt is not s/p C5-C6 PCDF on 10/[address] Schumacher. Past Medical History: Diagnosis Date ??? Depression [...] CERVICAL SPINE (WRVU 17.4) performed by Campos Schumacher MD at [facility] MAIN OR ??? PRO DUDLEY W/O FACETEC FORAMOT/DSKC 1/2 VRT SEG, CERVICAL N/A 10/30/2021 LAMINECTOMY, CX W/EXPLOR , W/O FACETECTOMY, 1 OR 2 SEGMENTS (WRVU 17.61) performed by Campos Schumacher MD at [facility] MAIN OR ??? PRO POSTERIOR SEGMENTAL INSTRUMENTATION 3-6 VRT SEG N/A 10/30/2021 POST SPINAL INSTRUMENTATION, 3-6 VERTEBRA, NON SEGMENTAL (WRVU 12.56) performed by Campos Schumacher MD at [facility] MAIN OR ??? PRO UPPER GI ENDOSCOPY, BIOPSY N/A 12/03/2015 EGD WITH BIOPSY performed by Ken Sanders MD at [facility] ENDOSCOPY ??? PRO UPPER GI ENDOSCOPY, BIOPSY N/A 09/19/2018 UPPER GASTROINTESTINAL ENDOSCOPY,WITH BIOPSY SINGLE OR MULTIPLE (WRVU 2.49) performed by Tyron Mercado MD at [facility] ENDOSCOPY ??? TONSILLECTOMY ??? UPPER GI ENDOSCOPY, EXAM 12/04/2010 UPPER GI ENDOSCOPY performed by DEE WRIGHT at [facility] ENDOSCOPY Social History: Patient lives with her in an apartment with a ramp entrance. is supportive and hometo assist as needed. Home Setup: Bathroom has a tub shower with grab bars and a shower chair. DME: 4WW, shower chair, FWW, wheelchair Baseline ADL/Mobility: Pt reported her was assisting with all ADLs and she was using a Rollator walker indoors and a wheelchair in the community. She was working with home services including RN/OT/PT/aide. Precautions/Special Considerations: fall risk, SBP 90-160, up with assist, activity as tolerated, up in chair TID, ambulate TID Subjective: He takes really good care of me. Objective: Seen today for OT evaluation. Cognitive Status/Behavior: ?? Behavior / Mood: cooperative and lethargic ?? Alert and oriented to: person, place and time ?? Follows commands: 1 step and 100% of the time ?? Attention: difficulty attending to task/directions and requires cues to redirect ?? Safety awareness: decreased insight into deficits Vision & Perception: ?? 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 minimal vision R eye Communication: WFL Range of motion, strength, coordination: Hand dominance: right UE limitations: decreased AROM, decreased strength, and impaired coordination BUE; shoulder flexion3-/5; elbow flexion 4-/5 LE limitations: decreased strength RLE; extensor tone RLE Sensation: diminished BUE; intact to light touch BLE Activities of Daily Living: Self-feeding: Mod assist; Pt was provided built up utensils and education for use of compensatory strategies for self feeding. Grooming: Mod assist for combing hair in sitting Dressing: Max assist LB dressing Bathing: Not assessed Toileting: Transfer: Min assist of 2 for stand step transfer to bedside commode Hygiene: Max assist Functional Mobility: Supine to sit: Min assist Sit to stand: Min assist of 2 Ambulation: Min to CGA of 2 for stand step transfer to recliner chair Stand to sit: CGA Sit to supine: Not assessed Balance: Sitting balance: Fair Standing balance: Fair with use of FWW Vitals: 3L O2 NC At Rest With Activity SpO2 93% Heart Rate 65 Blood Pressure 123/65 127/76 Pain: 6-7/10 at rest and 9/10 following activity Skin: incision cervical spine vertical, at high risk for skin breakdown Education: patient have been educated on Role of occupational therapy/rehabilitation, Transfers, ADL, Safety, Precautions/Protocol, Functional Mobility, Activity pacing/Energy conservation, Balance, Recommendations and Discharge planning and verbalizes understanding. Patient status, treatment, and mobility recommendations discussed with nursing. Assessment: Pt has been seen for occupational therapy evaluation. Jeannie Rico presents with thefollowing performance skill deficits and client factors: increased pain, decreased activity tolerance, decreased flexibility/ROM, decreased strength, decreased sitting/standing balance and decreased motor control. These performance deficits have led to activity limitations and participation restrictions in the following areas of occupation: dressing, bathing, grooming, toileting, self-feeding, transfers/mobility and community mobility. Pt was sleeping upon arrival but was willing to wake to part icipate initially needing mod cues to remain alert. She presented as motivated for independence despite demonstrated UE weakness and incoordination during participation in self care activities. She was able to perform stand step transfer with min assist of 2. Recommend inpatient rehab placement upon discharge for continued skilled therapy to reach functional goals. Pt would benefit from further inpatient OT interventions to address performance deficits and maximize participation and independence with occupations of daily living. Equipment needs at discharge: TBD Anticipated Discharge Disposition (OT): acute rehabilitation facility, swing bed rehabilitation facility Other Recommendations: ?? Transfer to recliner chair or commode as appropriate with min assist of 2 and FWW ?? Encourage participation in ADL's by providing set up A on tray table and physical assist only asneeded Other Recommendations: No other consults recommended at this time Goals: To be achieved by November 16, 2021. Pt will complete self feeding after complete set up with necessary tools and opening packages/cutting foods to consume 75% of all meals. Pt will complete 2 grooming tasks in sitting with supervision assist using compensatory strategies/AE as needed. Pt will complete toileting routine including transfer, clothing management, and hygiene with min assist. Pt will complete UB bathing and dressing in sitting with supervision assist using compensatory strategies as needed. Pt will complete LB dressing with min assist using AE as needed. Pt will complete functional transfers and mobility of a household distance with supervision assist for participation in ADLs using self pacing as needed. Pt will participate in UE strength/ROM/coordination exercises as appropriate for improved participation in daily tasks. Plan: OT: Therapy Frequency (OT): 1-3 times/wk Planned OT interventions: Role of occupational therapy/rehabilitation, Transfers, Assistive device/technique, Adaptive equipment training, ADL, Exercise, Breathing exercises, Positioning, Safety, Precautions/Protocol, Functional Mobility, Activity pacing/Energy conservation, Home Management, Balance, Recommendations, Family training and Discharge planning. Total Minutes, Occupational Therapy: 51 OT Evaluation Code Rationale: ?? Diagnosis & Pertinent Co-Morbidities affecting Plan of Care: see PMHx ?? Occupational Profile & Client History: Brief Expanded Extensive X ?? Assessment of Occupational Performance: 1-3 performance deficits 3-5 performance deficits 5 + performance deficits X ?? Clinical Decision Making: Low Moderate High X Clinical decision making of moderate complexity using standardized patient assessment instrument and measurable assessment of functional outcome. Pager: [phone] Pham Shannon OT 11/01/2021 Occupational Therapy Rehabilitation Department * Kenna Diane, PT - 10/31/2021 3:25 PM EDT Physical Therapy Contact Note 10/31/21 1355 Evaluation & Treatment Document Type contact Total Minutes, Physical Therapy 0 Comment, Session Not Performed Consult received, chart reviewed. Attempted to see pt however discussed with RN and pt having difficulties with pain control in AM and lethargy, hypotension and bradycardia in PM. Not appropriate for PT at this time, will follow up for formal eval as able. Kenna Diane, PT Pager: [phone] Physical Therapy Inpatient Rehabilitation Department * Moe Cantrell OT - 10/31/2021 2:54 PM EDT Occupational Therapy Note Document Type: contact Total Minutes, Occupational Therapy: 0 Reason: 10/31/21 1323 Evaluation & Treatment Document Type contact Total Minutes, Occupational Therapy 0 Comment, Session Not Performed Order received. Attempted to see Pt twice with PT. Pt though struggling with pain control, and then lethargic in the afternoon & hypotensive, and bradycardiac. Willput on list for tomorrow to see as appropriate. Pager: [phone] MOE CANTRELL OT 10/31/2021 Occupational Therapy Rehabilitation Department * Tom Hernandez RN - 10/30/2021 1:53 PM EDT Pt admitted from OR, report received, VSS, pt GUILLORY, denies pain documented in this encounter H&P Notes * Brandi Benavides PA - 10/30/2021 7:47 AM EDT Neurosurgery ID: Name: Jeannie Rico, 61 y.o. female Admission Date: 10/30/2021 CC: Elective procedure HPI: This is a 61 y.o. female h/o CAD s/p stents x 2 on ASA 81mg (stopped for surgery), anxiety, bipolar, PTSD, hypothyoidism, migraines, R wrist fracture, R ankle fracture, gastric bypass, hysterectomy, DM, smoker (quit in July 2021) who presents for elective procedure with Dr. Schumacher. Patient has hadunsteadiness while ambulating and too many falls to count recently. Patient states that she usually uses a wheelchair now. She states that she has trouble using her hands because she has numbness bilaterally. She states that she has right > left radicular arm pain. This has been getting worse over the last few months. PMH: Past Medical History: Diagnosis Date ??? Depression [...] ABDOMINAL 1985 ??? LIPECTOMY 2001 ??? PRO UPPER GI ENDOSCOPY, BIOPSY N/A 12/03/2015 EGD WITH BIOPSY performed by Ken Sanders MD at [facility] ENDOSCOPY ??? PRO UPPER GI ENDOSCOPY, BIOPSY N/A 09/19/2018 UPPER GASTROINTESTINAL ENDOSCOPY,WITH BIOPSY SINGLE OR MULTIPLE (WRVU 2.49) performed by Tyron Mercado MD at [facility] ENDOSCOPY ??? TONSILLECTOMY ??? UPPER GI ENDOSCOPY, EXAM 12/04/2010 UPPER GI ENDOSCOPY performed by DEE WRIGHT at [facility] ENDOSCOPY Medications: No current facility-administered medications on file prior to encounter. Current Outpatient Medications on File Prior to Encounter Medication Sig Dispense Refill ??? Advair Diskus 500-50 mcg/dose Disk with Device USE 1 INHALATION TWICE A DAY 60 each 11 ??? lisinopriL (Zestril) 40 mg Tablet TAKE ONE (1) TABLET BY MOUTH EVERY DAY 28 tablet 11 ??? tiotropium bromide (Spiriva Respimat) 2.5 mcg/actuation Mist Inhale 2 puffs into the lungs nightly. (Patient taking differently: Inhale 2 puffs into the lungs 2 times daily.) 12 g 3 ??? aspirin EC 81 mg Tablet, Delayed Release (E.C.) TAKE ONE (1) TABLET BY MOUTH EVERY DAY 28 tablet 11 ??? metoprolol succinate XL (Toprol-XL) 25 mg Tablet Sustained Release 24 hr TAKE ONE-HALF (1/2) TABLET BY MOUTH EVERY DAY 14 tablet 11 ??? Vitamin B-12 1,000 mcg Tablet TAKE ONE (1) TABLET BY MOUTH ONCE WEEKLY (PM) 4 tablet 11 ??? isosorbide mononitrate CR (Imdur) 30 mg Tablet Sustained Release 24 hr TAKE ONE (1) TABLET BY MOUTH EVERY DAY 28 tablet 11 ??? Ventolin HFA 90 mcg/actuation HFA Aerosol Inhaler INHALE 1 TO 2 PUFFS EVERY SIX HOURS NEEDED*CALL TO REFILL* 18 g 2 ??? nitroGLYcerin (Nitrostat) 0.4 mg Tablet, Sublingual Place 1 tablet under the tongue every 5 minutes as needed for Chest pain. 30 tablet 1 ??? Miscellaneous Medical Supply [facility] 1 walker on wheels with seat 1 each 0 ??? ibuprofen (Advil;Motrin) 800 mg Tablet Take 1 tablet by mouth every 8 hours as needed for Pain.90 tablet 5 ??? sertraline (ZOLOFT) 100 mg Tablet Take 2 tablets by mouth 2 times daily. ??? multivitamin (THERAGRAN) Tablet Take 1 tablet by mouth daily. ??? lancets 30 gauge Misc 1 each by [facility].(Non-Drug; Combo Route) route daily. 100 each 3 ??? ARIPiprazole (Abilify) 5 mg Tablet Take 5 mg by mouth daily. ??? alum-mag hydroxide-simeth (Maalox) 200-200-20 mg/5 mL Suspension Take 10 mLs by mouth every 6 hours as needed for Indigestion. ??? MARIJUANA ORAL Take by mouth. Scheduled Meds: ??? ceFAZolin 2 g Intravenous Once Continuous Infusions: PRN Meds:. Allergies: Allergies Allergen Reactions ??? Morphine Shortness Of Breath ??? Sumatriptan Hives ??? Oxycodone Other (See Comments) drunk feeling, dizzy ??? Oxycodone-Acetaminophen Other (See Comments) dizziness, feels drunk ??? Chantix [Varenicline] psychotic ??? Imitrex [Sumatriptan Succinate] Hives ??? Prednisone Other reaction(s): aggitation Family Hx: Family History Problem Relation Age of Onset ??? Depression Mother ??? Anxiety Disorder Mother ??? Lung Cancer Mother ??? Multiple Sclerosis Mother ??? Heart Disease Mother Congestive Heart Failure ??? Hypertension Mother ??? Depression Father ??? Type 2 Diabetes Father ??? Heart Disease Father ??? Hypertension Father ??? Obesity Father ??? Cervical Cancer Sister ??? Heart Disease Maternal Grandmother ??? Type 2 Diabetes Maternal Grandfather ??? Heart Disease Maternal Grandfather ??? Heart Disease Paternal Grandmother ??? Leukemia Other ??? Other Sister 43 Breast Neoplasm, Benign ??? Breast Cancer Neg Hx Social Hx: Social History Socioeconomic History ??? Marital status: Spouse name: None ??? Number of children: None ??? Years of education: None ??? Highest education level: None Occupational History ??? None Tobacco Use ??? Smoking status: Current Some Day Smoker Packs/day: 2.00 Years: 50.00 Pack years: 100.00 Types: Cigarettes ??? Smokeless tobacco: Never Used ??? Tobacco comment: smoking 3 cigarettes some days Vaping Use ??? Vaping Use: Never used Substance and Sexual Activity ??? Alcohol use: No Comment: not drank in 24 years ??? Drug use: Yes Frequency: 21.0 times per week Types: Marijuana Comment: 3 times per day, edibles ??? Sexual activity: None Other Topics Concern ??? Do You live alone? No ??? Tobacco in Home Not Asked Social History Narrative ??? None Social Determinants of Health Financial Resource Strain: Not on file Food Insecurity: Not on file Transportation Needs: Not on file Physical Activity: Not on file Housing Stability: Not on file Vitals: There were no vitals filed for this visit. Physical Exam: -Gen: NAD. -HEENT:ATNC. No perimastoid or periorbital bruising. No rhinorrhea or otorrhea. -CV: RR -Resp: Breathing non-labored. -GI: S/ND. Benign. -Neuro: Mental Status/Cognitive: Awake, alert, oriented x3 GCS: 15 Speech: Fluent, appropriate. Naming and repetition intact. Cranial Nerves: PERRL CN II - Visual acuity and lawson grossly intact CN III, IV, - EOMI CN V - Sensation intact in V1,2 and 3 distributions CN VII - No facial asymmetry/droop CN VIII - Intact hearing bilaterally to finger rub CN IX, X - Palate and uvula midline CN XI - Trapezius 5/5 bilat CN XII - Tongue midline Tone: Normal Power: No pronator drift Segment Muscle Action Left Right C5 Deltoid Shoulder Abduction 5 4 C6 Biceps Elbow flexion 5 4+ C6 Extensor carpi radialis Wrist extension 5 4+ C7 Triceps Elbow extension 5 4+ C8 Finger flexors Grasp 5 5 T1 Interossei Finger abduction 5 5 L2 Iliopsoas Hip flexion 5 4+ L3 Quadriceps Knee extension 5 5 L4 Tibialis anterior Dorsiflexion 5 4+ L5 Extensor hallucis Great toe extension 5 5 S1 Gastrocnemius Plantar flexion 5 5 Bilateral hoffmans R clonus Sensation in the extremities: Light touch: Intact x 4 decrease b/l arms/hands Labs: No results for input(s): WBC, HGB, PLATELET in the last 72 hours. No results for input(s): NA, K, CL, CO2, BUN, CREATININE in the last 72 hours. No results for input(s): PT, INR in the last 72 hours. Imaging: Assessment: This is a 61 y.o. female h/o CAD s/p stents x 2 on ASA 81mg (stopped for surgery), anxiety, bipolar, PTSD, hypothyoidism, migraines, R wrist fracture, R ankle fracture, gastric bypass, hysterectomy, DM, smoker (quit in July 2021) who presents for elective procedure with Dr. Mendez for posterior cervical decompression and fusion for spondylosis with myelopathy. Patient understood that the goal is to prevent progression of neurologic decline over time rather than gaining back her current neurological deficits. Telephone consent by DPOA. Plan: -Proceed to OR as planned I have reviewed the above with Dr. Schumacher, who agrees with the assessment and plan. documented in this encounter Procedure Notes * Yanet Le MD - 10/30/2021 12:50 PM EDT NEURODIAGNOSTIC LABORATORY [facility] INTRAOPERATIVE MONITORING REPORT Name: Jeannie Rico : 1960 Date of Surgery: 10/30/2021 Surgeon(s): Campos Schumacher MD; Palmer Lu MD Surgical Procedure: C5-6 posterior decompression and fusion Monitoring Procedure: Intraoperative free-running EMG of the bilateral C3-S1 innervated muscles of the upper and lower extremities; motor cord monitoring using transcranial motor evoked potentials (tcMEPs) from the aforementioned muscles; sensory cord and brachial plexus monitoring using bilateral ulnar, median, and posterior tibial nerve somatosensory evoked potentials (SSEPs); scalp EEG monitoring; peripheral nerve conduction testing using ulnar and posterior tibial nerve stimulation with ipsilateral first dorsal interosseous, and abductor hallucis brevis recordings. CPT Codes: 80853 (EEG); 35540 (EMG 2 limbs); 64206 (EMG limited x2) 40477 (TOF, 4 nerves); 96202 (upper & lower MEP); 97390 (upper and lower SSEP bilateral); 06384 (IOM, 7 units); 24531 (IOM, 2 units). Intraoperative Neurophysiologic Monitoring was performed for a total duration of 3 hours 14 mins. During this time period, the IOM attending was present in the operating room for a total of 98 mins. Clinical History: 61-year-old female with predominantly C5-6 degenerative stenosis with myelopathy presenting for elective surgical decompression. Monitoring Team: Yanet Le MD/PhD; Dustin Villalpando; Tamiko Ruffin, PhD, CN Anesthesia: Propofol/opiate, no muscle relaxant after intubation. Report: Following anesthesia and prior to positioning the patient, surface needle electrode pairs were placed bilaterally in the trapezius, deltoid, biceps, triceps, extensor carpi radialis, abductor pollicis brevis, first dorsal interosseous, tibialis anterior, and abductor hallucis brevis muscles. Surface needle electrodes were also placed at appropriate locations on the scalp and over Erb's point to record SSEPs from stimulation leads placed bilaterally over the ulnar, median, and posterior tibial nerves. Stimulating electrodes were placed at scalp locations C3, and C4 to elicit tcMEPs in the aforementioned muscles. Counts were kept of all needles and other items attached to the patient for monitoring, and all were accounted for and disposed of at the conclusion of the surgery. At baseline before positioning the patient prone, reproducible SSEPs were obtained from the bilateral ulnar, median and posterior tibial nerves stimulations. Baseline peripheral motor conduction testing indicated adequate peripheral conduction and validated subsequent EMG-based monitoring. Concurren tly, tcMEPs were elicited from all monitored muscles, except for the right hand and right tibialis anterior muscles. However, there was still inhalational anesthetic present that may have been inhibiting MEP responses. EEG was typical with periods of burst suppression. After flipping the patient to prone position, SSEPs were globally delayed in latency in the cortical channels, while subcortical and Erb's point responses remained stable. This likely corresponded with a decrease in the patient's temperature during positioning. MEP responses became reliably presentin the right hand muscles, as the inhalational anesthetic wore off, although there was still trial-trial variability in the amplitude of these responses. During the decompression and instrumentation placement, MEPs and SSEPs remained stable. EMG was mostly quiet, except for some sporadic activity in the bilateral trapezius muscles, which did not correspond with any surgical manipulation. At closing, SSEPs and MEPs were stable from baseline and EMG was quiet. Impression: This IONM study suggests transient irritation of the bilateral spinal accessory nerves and/or C3-4 spinal nerve roots. No other significant changes were noted in the aforementioned responses during the neuromonitoring period. Overall, this IONM study suggests the procedure was accomplished without significant neurophysiologic changes when compared to the patient???s baseline. Yanet Le MD/PhD CC: Campos Schumacher MD documented in this encounter Miscellaneous Notes * Care Management Discharge - Parvin Barksdale RN - 11/04/2021 12:28 PM EDT CARE MANAGEMENT FINAL DISCHARGE NOTE Chart reviewed, care reviewed with primary team and at interdisciplinary rounds. Patient is medically ready for discharge to [facility] acute rehab. Needs for Transition of Care: Plan for discharge is: Pending Hospital Course and PT/OT Recommendations Outpatient Agency/Support Group Needs: *TBD Agency Referrals & Follow-up Care: Contact information for follow-up [facility] Admissions - [place] [address] [address] Transportation: Wheelchair van/Ambulance? Yes Ambulance transportation is medically necessary at discharge related to s/p NSGY. I have discussed Medicare/Private Insurance reimbursement guidelines for ambulance transport. Patient/family(name of individual)pt, , sister verbalize understanding of their potential financial obligation and agree with ambulance transport. Functional status prior to admission: unable to assess Home Environment: Others in the home: spouse. Current Living Arrangements: home/apartment/condo. Accessibility Concerns: . Current Functional Ability: Completely Dependent DME used at home: unable to assess DME Needed at Discharge: Patient is insured through: Primary Insurance: MEDICARE Payor: MEDICARE / Plan: MEDICARE PART A & B / Product Type: *No Product type* / Secondary Insurance: MEDICAID [place] Prescription Coverage: Yes Preferred Pharmacy: [facility] - [place], [place] - [address] [address] [facility] - [place], [place] [facility] [address] [facility] [address] [facility] [id number] This plan was formulated with input from patient, pt and family (please identify family/friend involved if applicable) and team. All are in agreement with plan. Parvin BATEMAN, RN Pager #[phone] * Plan of Care - Sarah Hanson RN - 11/02/2021 6:17 PM EDT OUTCOME EVALUATION NOTE: OUTCOME SUMMARY: A&O x 4. Neuro status unchanged. Sating at 93- 96% on 3L NC. Pt endorsing pain 8-/10, PRN medsgiven. Ativan PRN given for anxiety as well. CXR and BLE duplex study done this shift. Encouraging IS with demonstration. Medicine consulted for use of O2. PT working with pt recommending 2A with FWWand gaitbelt. Safety maintained. PLAN MOVING FORWARD: Q4 NC Q4 VS Q4 BS Work with PT/OT Pain management Maintain Safety Discharge planning INDIVIDUALIZED FALL PREVENTION INTERVENTIONS: Patient-specific fall risk factors per assessment: recent surgery, generalized weakness, hospital environment, lines/wires Assistance: 2 assist, FWW Supervision: Hands on Surveillance: Bed locked in low position, call damian within reach, purposeful hourly rounding, clutter free environment, bed/chair alarm on, family at bedside Patient-specific fall prevention interventions for sensory deficits provided: Yes CPG GOAL OUTCOME EVALUATION: Continue care plan as documented. * Consult Note - Darby Cruz MD - 11/02/2021 1:57 PM EDT Internal Medicine Initial Consult Note Admit date: Hospital day: Service: Primary Attending Consult Attending 10/30/2021 3 Neurosurgery MD Gil Springer Reason for Consult: Intermittent Hypoxia/Trace Pleural Effusions HPI: Ms. Jeannie Rico is a 61 y.o. female h/o CAD s/p stents x 2 on ASA 81mg (stopped for surgery), anxiety, bipolar, PTSD, hypothyoidism, migraines, R wrist fracture, R ankle fracture, gastric bypass, hysterectomy, DM, smoker (quit in July 2021) who presents for elective cervical decompressionfusion with Dr. Schumacher for myelopathic sx with unsteadiness, recent falls, BUE numbness, and right > left radicular arm pain. Medicine is consulted for intermittent hypoxia and trace pleural effusions seen on CR. Pt is currently POD3 reportedly had a new O2 requirement of 3L since BLE duplex was negative and patient is not tachycardic. She has been held on her home inhaler(spiriva, advair, ventolin) sinces admission and was started on spiriva and symbicort today due to her increasing dypsnea. Overall, net up 1L since admission. Last TTE in December 2020 wsymbicorith an EF of 65% without signs of systolic or diastolic HF, with no valvulopathies or wall motion abnormalities w/ proBNP of 347 in 2019. NST in Mar 2021 was negative. PFTs ordered for this past May but no results. CXR today showed trace bilateral pleural effusions and atelectasis. Pt does not use oxygen at home. She was evaluated with a sleep study in the past, and reportedly was prescribed a CPAP for symptomatic relief although reportedly did not have hypoxia. Pt is currently resting comfortably in her chair on 2L O2 speaking in full sentences satting 93%. Pt reports she had been shortness of breath yesterday but appears to be improving with restarting herhome inhalers this morning. She also states she's been feeling better with incentive spirometer. Ptreports she is intermittently dyspneic at home with wheezing and has been using her inhalers for years which usually improve her sx. Her dyspnea worsens with exertion. Pt denies fevers, chills, sweats, weakness, fatigue, weight changes, URI sx, cough, pleurisy, chestpain, palpitations, orthopnea, edema, pnd, nausea, bleeding, myalgias or arthralgias, dizziness, headaches, or any other acute sx. Past Medical History/Problem List Patient Active Problem List Diagnosis Code ??? Cervicalgia M54.2 ??? Chronic pain G89.29 ??? Lumbago M54.50 ??? Smokes cigarettes F17.210 ??? GERD (gastroesophageal reflux disease) K21.9 ??? Anxiety F41.9 ??? Depression F32.A ??? Post traumatic stress disorder (PTSD) F43.10 ??? Hidradenitis suppurativa L73.2 ??? Osteoporosis M81.0 ??? Borderline personality disorder F60.3 ??? Asthma J45.909 ??? Benign essential hypertension I10 ??? Bulimia F50.2 ??? Chronic obstructive pulmonary disease J44.9 ??? Constipation K59.00 ??? Diabetes mellitus, type II E11.9 ??? Dizziness R42 ??? Hyperlipidemia E78.5 ??? Obstructive sleep apnea (adult) (pediatric) G47.33 ??? Osteoarthrosis M19.90 ??? Seizures R56.9 ??? Coronary artery disease I25.10 ??? Headache R51.9 ??? Bipolar disorder F31.9 ??? Low back pain M54.50 ??? Hypothyroidism, acquired E03.9 ??? Generalized weakness R53.1 ??? Vitamin D deficiency E55.9 ??? Vitamin B12 deficiency E53.8 ??? Cataract of right eye H26.9 ??? Right leg weakness R29.898 ??? Chronic pain of right ankle M25.571, G89.29 ??? Bilateral leg edema R60.0 ??? Cervical spinal stenosis M48.02 ??? Arthrodesis present Z98.1 Past Medical History: Diagnosis Date ??? Depression ??? Diabetes mellitus ??? Hypertension ??? Obesity, S/P remote gastric bypass in 1995, prior VBG 05/09/2013 ??? Osteoporosis ??? Suicide attempt 08/02/2019 ??? Thyroid disease Meds: No current facility-administered medications on file prior to encounter. Current Outpatient Medications on File Prior to Encounter Medication Sig Dispense Refill ??? Advair Diskus 500-50 mcg/dose Disk with Device USE 1 INHALATION TWICE A DAY 60 each 11 ??? lisinopriL (Zestril) 40 mg Tablet TAKE ONE (1) TABLET BY MOUTH EVERY DAY 28 tablet 11 ??? tiotropium bromide (Spiriva Respimat) 2.5 mcg/actuation Mist Inhale 2 puffs into the lungs nightly. (Patient taking differently: Inhale 2 puffs into the lungs 2 times daily.) 12 g 3 ??? aspirin EC 81 mg Tablet, Delayed Release (E.C.) TAKE ONE (1) TABLET BY MOUTH EVERY DAY 28 tablet 11 ??? metoprolol succinate XL (Toprol-XL) 25 mg Tablet Sustained Release 24 hr TAKE ONE-HALF (1/2) TABLET BY MOUTH EVERY DAY 14 tablet 11 ??? Vitamin B-12 1,000 mcg Tablet TAKE ONE (1) TABLET BY MOUTH ONCE WEEKLY (PM) 4 tablet 11 ??? isosorbide mononitrate CR (Imdur) 30 mg Tablet Sustained Release 24 hr TAKE ONE (1) TABLET BY MOUTH EVERY DAY 28 tablet 11 ??? Ventolin HFA 90 mcg/actuation HFA Aerosol Inhaler INHALE 1 TO 2 PUFFS EVERY SIX HOURS NEEDED*CALL TO REFILL* 18 g 2 ??? nitroGLYcerin (Nitrostat) 0.4 mg Tablet, Sublingual Place 1 tablet under the tongue every 5 minutes as needed for Chest pain. 30 tablet 1 ??? Miscellaneous Medical Supply Misc 1 walker on wheels with seat 1 each 0 ??? ibuprofen (Advil;Motrin) 800 mg Tablet Take 1 tablet by mouth every 8 hours as needed for Pain.90 tablet 5 ??? sertraline (ZOLOFT) 100 mg Tablet Take 2 tablets by mouth 2 times daily. ??? multivitamin (THERAGRAN) Tablet Take 1 tablet by mouth daily. ??? lancets 30 gauge Misc 1 each by [facility].(Non-Drug; Combo Route) route daily. 100 each 3 ??? ARIPiprazole (Abilify) 5 mg Tablet Take 5 mg by mouth daily. ??? alum-mag hydroxide-simeth (Maalox) 200-200-20 mg/5 mL Suspension Take 10 mLs by mouth every 6 hours as needed for Indigestion. ??? MARIJUANA ORAL Take by mouth. Allergies: Allergies Allergen Reactions ??? Morphine Shortness Of Breath ??? Sumatriptan Hives Other reaction(s): Hives and Rash (Urticaria) ??? Oxycodone Other (See Comments) drunk feeling, dizzy ??? Oxycodone-Acetaminophen Other (See Comments) dizziness, feels drunk Other reaction(s): Unknown ??? Chantix [Varenicline] psychotic ??? Imitrex [Sumatriptan Succinate] Hives ??? Prednisone Other reaction(s): aggitation Past Surgical History Past Surgical History: Procedure Laterality Date ??? CHOLECYSTECTOMY, OPEN 1991 ??? CORONARY ANGIOPLASTY WITH STENT PLACEMENT 2013 stent to LAD ??? CREATED BY INTERFACE a carotid bypass Procedure Date: Unknown ??? DENTAL SURGERY 1998 complete dental extractions ??? GASTRIC BYPASS SURGERY 05/05/2000 open, non-divided. Dr Trejo ??? HYSTERECTOMY, TOTAL ABDOMINAL 1985 ??? LIPECTOMY 2001 ??? PRO ARTHRODESIS, POST/POSTEROLAT TQ, SNGLE INTERSPACE; CERVICAL BELOW C2 SEGMNT N/A 10/30/2021 @ARTHRODESIS, POSTERIOR CERVICAL SPINE (WRVU 17.4) performed by Campos Schumacher MD at [facility] MAIN OR ??? PRO DUDLEY W/O FACETEC FORAMOT/DSKC 07/26 VRT SEG, CERVICAL N/A 10/30/2021 LAMINECTOMY, CX W/EXPLOR , W/O FACETECTOMY, 1 OR 2 SEGMENTS (WRVU 17.61) performed by Campos Schumacher MD at [facility] MAIN OR ??? PRO POSTERIOR SEGMENTAL INSTRUMENTATION 3-6 VRT SEG N/A 10/30/2021 POST SPINAL INSTRUMENTATION, 3-6 VERTEBRA, NON SEGMENTAL (WRVU 12.56) performed by Campos Schumacher MD at [facility] MAIN OR ??? PRO UPPER GI ENDOSCOPY, BIOPSY N/A 12/03/2015 EGD WITH BIOPSY performed by Ken Sanders MD at [facility] ENDOSCOPY ??? PRO UPPER GI ENDOSCOPY, BIOPSY N/A 09/19/2018 UPPER GASTROINTESTINAL ENDOSCOPY,WITH BIOPSY SINGLE OR MULTIPLE (WRVU 2.49) performed by Tyron Mercado MD at [facility] ENDOSCOPY ??? TONSILLECTOMY ??? UPPER GI ENDOSCOPY, EXAM 12/04/2010 UPPER GI ENDOSCOPY performed by DEE WRIGHT at [facility] ENDOSCOPY Family History: Mother: from lung cancer at age 64; COPD, smoker, congestive heart failure Father: HTN, DM, Kidney Cancer, Skin Cancer; from [place] at 76 Maternal Grandmother - at age 35 y/o due to ovarian Social History: Tobacco: not a current smoker; prior 3 packs a day smoker - quit 3 months prior Etoh: none Illicits: uses medical marijuana Living Situation: Lives in [place], [place] Occupation: On disability due to mental health; PTSD, BPD Vitals: Last value Range last 24 hrs Temperature Temp: 36.7 ??C (98.1 ??F) Temp: [36.6 ??C (97.9 ??F)-37.4 ??C (99.4 ??F)] Heart Rate Heart Rate: 64 Heart Rate: [64] Blood Pressure BP: 128/61 BP: (102-138)/(48-103) Respiratory Rate Resp: 18 Resp: [16-20] SpO2 SpO2: 92 % SpO2: [90 %-96 %] I/O last 3 completed shifts: In: 800 [P.O.:800] Out: 2150 [Urine:2150] Examination: General: Chronically ill-appearing obese female in NAD, A&O x 4 Head: NCAT Eyes: EOMI, PERRLA, no scleral icterus Oropharynx: MMM, no erythema, exudates, or lesions Neck: Supple, trachea midline, no thyromegaly; neck veins mildly distended; cervical spine with long-vertical surgical scar on posterior side closed by artie; no bleeding, purulence, or erythema Lungs: Diminished breath sounds with some mild bibasilar rales; no clubbing, cyanosis, or tachypneaon 2L NC; no noted wheezing Heart: RRR w/o M/R/G/C with loud S1 Abdomen: Soft, NT/ND Extremities: Trace non-pitting edema to BLE; 2+ DP pulses Neuro: Cranial Nerves 2-12 grossly intact; no gross focal deficits Skin: No gross rashes, lesions, or ecchymoses; noted hirsutism Lymphatics: No cervical or clavicular LAD Laboratory: CBC: Recent Labs 10/31/21 0814 08/07/21 1100 05/27/21 1054 WBC 10.6* 6.8 7.7 HGB 13.0 14.7 14.4 PLATELET 210 215 208 Chemistry: Recent Labs 10/31/21 1221 08/07/21 1100 05/27/21 1054 NA 134* 138 139 K 4.7 4.4 4.2 CL 98 100 101 CO2 28 28 26 BUN 12 19* 19* CREATININE 0.74 0.91 0.70 GLUCOSE 118 93 90 Recent Labs 10/31/21 1221 08/07/21 1100 05/27/21 1054 CALCIUM 9.0 10.1 9.8 MAGNESIUM 0.78 -- -- PHOS 4.4 -- -- LFT's: Recent Labs 05/27/21 1054 04/07/21 1329 BILITOT 0.3 0.2 BILIDIR -- 0.1 ALBUMIN 4.1 4.0 ALKPHOS 125* 125* ALT 8 10 AST 11 9 Coags: No results for input(s): PT, INR, PTT, FIBRINOGEN, DDIMER in the last 168 hours. Invalid input(s): THROMBIN TIME Cardiac enzymes: Recent Labs 10/31/21 1221 08/07/21 1349 08/07/21 1100 02/26/21 1214 TROPONINT <0.01 <0.01 <0.01 -- CK -- -- -- 79 Endocrine: Recent Labs 05/27/21 1054 04/07/21 1329 TSH 2.40 2.27 Heme: No results for input(s): LDH, HAPTOGLOBIN, URICACID in the last 168 hours. Microbiology: No results for input(s): URINECULTURE in the last 720 hours. No results for input(s): GRAMSTAIN, BFCX, LOWERRESPCX, TISSUECX in the last 720 hours. No results for input(s): BLOODCX in the last 720 hours. Diagnostic Studies: Results for orders placed or performed during the hospital encounter of 10/30/21 XR Cervical Spine 2 or 3 Views (Exam End: 10/30/2021 5:15 PM) Impression Baseline radiographic appearance of the cervical spine in patient status post C5-6 PCDF without findings to suggest complication. Thank you for letting us participate in the care of this patient. If you are a health care provider and have any questions regarding this report, please contact the number below. For patients who have questions please contact the health child care associate teacher that requested your imaging first. Head wo & Multiphase CTA Head/Neck (THROMBECTOMY PROTOCOL) (Exam End: 11/01/2021 10:35 PM) Impression CT HEAD WITHOUT CONTRAST: * No acute intracranial abnormality. MULTIPHASE CTA HEAD AND CTA NECK: * No intracranial large vessel occlusion. * No hemodynamically significant stenosis, aneurysm or dissection of anterior or posterior circulation. * Postsurgical changes in posterior neck. Preliminary report signed by: Tyron Roach at 11/01/2021 11:52 PM I have personally reviewed the image(s) and the resident's interpretation and agree with the findings, Janie Aguilar MD at 11/02/2021 12:47 AM Thank you for letting us participate in the care of this patient. If you are a health care provider and have any questions regarding this report, please contact the number below. For patients who have questions please contact the health child care associate teacher that requested your imaging first. Electronically signed by: Janie Aguilar MD, [facility] ([phone]), at 11/02/2021 12:47 AM XR Chest PA & Lateral (Generic) (Exam End: 11/02/2021 9:39 AM) Impression Trace bibasilar pleural effusions and atelectasis by posterior costophrenic angles. Thank you for letting us participate in the care of this patient. If you are a health care provider and have any questions regarding this report, please contact the number below. For patients who have questions please contact the health child care associate teacher that requested your imaging first. Electronically signed by: Tahira Medrano MD, [facility] ([phone]), at 11/02/2021 11:12 AM Assessment: Ms. Jeannie Rico is a 61 y.o. female h/o CAD s/p stents x 2 on ASA 81mg (stopped for surgery), anxiety, bipolar, PTSD, hypothyoidism, migraines, R wrist fracture, R ankle fracture, gastric bypass, hysterectomy, DM, smoker (quit in July 2021) who presents for elective cervical decompression fusion with Dr. Schumacher for myelopathic sx with unsteadiness, recent falls, BUE numbness, and right > left radicular arm pain. Medicine is consulted for intermittent hypoxia and trace pleural effusions seen on CXR. I suspect patient's hypoxia and dypsnea are likely secondary to atelectasis in the setting of possible COPD w/ smoking hx and inactivity/deconditioning while recuperating from surgery. Her pleural effusions appear minor and patient does not appear to be in acute heart failure, if no improvement, can consider getting proBNP level and trial 20 mg IV lasix as patient is net up a 1L since admission. Cardiac work up in the past year does not seem likely given echo and NST in the past year was normal, although patient may have component of pulmonary hypertension given risk factors. Wbc count mildly elevated no URI sx and CXR shows no signs of PNA or aspiration making an infectivecause less likely. Her Wells score is 1.5; low likelihood of PE. No trauma or signs of pulmonary contusion or PTX. Would recommend continuing monitoring improvement of hypoxia with IS and current inhalers with PRN duonebs. As patient reported was recommended using a CPAP at night in the past, couldtrial at night. F/u with outpatient PFTs as it did not appear she had those completed when prescribed previously. Recommendations: - continue spiriva and symbicort - duonebs q4hrs PRN in place of albuterol MDI - continue incentive spirometry and pulmonary toileting - PT/OT to improve deconditioning - no indication for CT/PE - if no improvement or worsening hypoxia, can consider assessing proBNP in the AM and trial 20 mg IV lasix - if fever or showing others signs of infection, can repeat CXR and respiratory viral panel - consider f/u outpatient PFTs - can trial CPAP at night Case was discussed with medicine consult attending, Dr. Adal Trinidad. X Consult service will continue to follow patient. Recommendations are above, please page if further consultation required. Darby Cruz MD Internal Medicine, PGY3 DINORA Pager # [phone] Associated attestation - Adal Trinidad MD - 11/02/2021 4:57 PM EDT Medicine Staff I saw and examined the patient. I have reviewed all data and studies personally. My findings agree with those outlined by Dr. Cruz, whose note reflects our assessment and plan. Hypoxia is likely multifactorial with atelectasis from immobility after surgery and extrathoracic mass (BMI = 37.77 kg/m^2) as well as underlying suspected obstructive lung disease. Recommend resumption of inhalers and encouraged incentive spirometry and mobilization with PT/OT. Limited suspicion for pulmonary embolus and pleural effusions are too small to consider drainage for therapeutic benefit. She also has likely KARINA and may benefit from nightly CPAP to recruit atelectatic lung units. I discussed our impression with Dr. Schumacher. Adal Trinidad MD * Plan of Care - Earlene Lee RN - 11/01/2021 8:43 PM EDT OUTCOME EVALUATION NOTE: OUTCOME SUMMARY: AOx4, BUE 3/5 LLE 3/5 RLE 2/5 Per provider Jeannie Rico is a 61 y.o. female on ASA81 (held preop) with PMH tobacco smoker, CAD s/p remote stent, PTSD, anxiety, bipolar disorder, hypothyroidism, migraines as well as b/l hand numbness, gait instability, multiple falls, ambulatory with walker (sometimes needs wheelchair), R>L radicular pain found to have C5-6 severe stenosis with cervical myelopathy presenting for elective surgery. 10/30, Dr. Schumacher: C5-6 PCDF GEN: NAD NEURO: AOx4 PERRL, FS 5/5 LUE 4+ R D/B/T, otherwise 5/5 5/5 BLE Dressing CDI (artie in place) Assessment: 61 y.o. female on ASA81 (held preop) with PMH tobacco smoker, CAD s/p remote stent, PTSD, anxiety, bipolar disorder, hypothyroidism, migraines as well as b/l hand numbness, gait instability, multiple falls, ambulatory with walker (sometimes needs wheelchair) found to have C5-6 severe stenosis with cervical myelopathy presenting for elective surgery. Now s/p C5-6 PCDF. Stable post op. -Q4 neuro checks -SBP 90-160 -DVT ppx with SCDs, hold antiplatelets/anticoagulants -Hold home ASA -Activity as tolerated, PT/OT -Diet as tolerated -Pain control -Imaging done -Remove SHERIN -Dispo pending course Active Hospital Problems Diagnosis Arthrodesis present PLAN MOVING FORWARD: Rehab or snf INDIVIDUALIZED FALL PREVENTION INTERVENTIONS: Patient-specific fall risk factors per assessment: general weakness, pain management Assistance: 2 assist, FWW, gait belt, Stand & Pivot, or in Bed w/ Q2hr turns Supervision: Hands on Surveillance: Bed locked in low position, call damian within reach, purposeful hourly rounding, clutter free environment, bed/chair alarm on Patient-specific fall prevention interventions for sensory deficits provided: Yes bed alarm CPG GOAL OUTCOME EVALUATION: Continue care plan as documented. * Plan of Care - Irasema Calix RN - 11/01/2021 6:39 PM EDT OUTCOME EVALUATION NOTE: OUTCOME SUMMARY: A&O x 4. Neuro status unchanged. Sating at 93- 96% on 3L NC. Pt continues to be sleepy/groggy throughout shift, team notified, pain med's discontinued. Pt continues to have complaints of pain, treated with PRN tramadol and scheduled tylenol, encouraged heat pack/ice pack, good improvement. Pt with poor PO intake, fluids encouraged throughout shift. Pt unable to void despite multiple attempts to use the bathroom, previous straight cath x 4, bladder scan >600, hernandez catheter placed per order. OOB to chair with 2A and a walker. Call light within reach. Bed/chair alarm on. Will continue tomonitor. PLAN MOVING FORWARD: Q4 NC Q4 VS Q4 BS Work with PT/OT Pain management Maintain Safety Discharge planning INDIVIDUALIZED FALL PREVENTION INTERVENTIONS: Patient-specific fall risk factors per assessment: recent surgery, generalized weakness, hospital environment, lines/wires Assistance: 2 assist, FWW Supervision: Hands on Surveillance: Bed locked in low position, call damian within reach, purposeful hourly rounding, clutter free environment, bed/chair alarm on, family at bedside Patient-specific fall prevention interventions for sensory deficits provided: Yes CPG GOAL OUTCOME EVALUATION: Continue care plan as documented. * Plan of Care - Earlene Lee RN - 10/31/2021 9:06 PM EDT OUTCOME EVALUATION NOTE: OUTCOME SUMMARY: AOx4, RUE 3/5 LUE 3/5 BLE 3/5, DSD intact to back of neck with scant old shadowing (artie beneath), SHERIN removed (removable suture at site, DSD) Per provider: ID: Jeannie Rico is a 61 y.o. female on ASA81 (held preop) with PMH tobacco smoker, CAD s/p remote stent, PTSD, anxiety, bipolar disorder, hypothyroidism, migraines as well as b/l hand numbness, gait instability, multiple falls, ambulatory with walker (sometimes needs wheelchair) found to have C5-6 severe stenosis with cervical myelopathy presenting for elective surgery. 10/30, Dr. Schumacher: C5-6 PCDF GEN:NAD NEURO: Waking up from anesthesia FC x4 Dressing CDI (artie in place) Assessment: 61 y.o. female on ASA81 (held preop) with PMH tobacco smoker, CAD s/p remote stent, PTSD, anxiety, bipolar disorder, hypothyroidism, migraines as well as b/l hand numbness, gait instability, multiple falls, ambulatory with walker (sometimes needs wheelchair) found to have C5-6 severe stenosis with cervical myelopathy presenting for elective surgery. Now s/p C5-6 PCDF. Stable post op. Plan: -Q4 neuro checks -SBP 90-160 -DVT ppx with SCDs, hold antiplatelets/anticoagulants -Hold home ASA -Activity as tolerated -Diet as tolerated -Due to void -Pain control -F/u post op imaging XR C spine -Monitor SHERIN full suction -Dispo pending course Active Hospital Problems Diagnosis ??? Arthrodesis present PLAN MOVING FORWARD: Pain management, recovery from curgery INDIVIDUALIZED FALL PREVENTION INTERVENTIONS: Patient-specific fall risk factors per assessment: weakness s/p surgery Assistance: SBA, 2 assist, FWW, or in Bed w/ Q2hr turns Supervision: Hands on Surveillance: Bed locked in low position, call damian within reach, purposeful hourly rounding, clutter free environment, bed/chair alarm on Patient-specific fall prevention interventions for sensory deficits provided: Yes bedalarm CPG GOAL OUTCOME EVALUATION: Continue care plan as documented. * Plan of Care - Irasema Calix RN - 10/31/2021 6:34 PM EDT OUTCOME EVALUATION NOTE: OUTCOME SUMMARY: A&O x 4. Neuro status unchanged. Sating at 93- 96% on 3L NC. Pt became a bit groggy with bradycardia and hypotension in the late morning, sustaining at 48 bpm, team notified, EKG and labs obtained, dilaudid discontinued. Magnesium infusion given, tolerated well. Pt continues to have complaints of pain, treated with PRN and scheduled meds, some improvement noted. Pt with poor PO intake, fluidsencouraged throughout shift. Pt unable to void, bladder scan >400, straight cath performed x 1 on my shift. OOB to chair with 2A and a walker. Call light within reach. Bed/chair alarm on. Will continue to monitor. PLAN MOVING FORWARD: Q4 NC Q4 VS Q4 BS Work with PT/OT Pain management Maintain Safety Discharge planning INDIVIDUALIZED FALL PREVENTION INTERVENTIONS: Patient-specific fall risk factors per assessment: recent surgery, generalized weakness, hospital environment, lines/wires Assistance: 2 assist, FWW Supervision: Hands on Surveillance: Bed locked in low position, call damian within reach, purposeful hourly rounding, clutter free environment, bed/chair alarm on, family at bedside Patient-specific fall prevention interventions for sensory deficits provided: Yes CPG GOAL OUTCOME EVALUATION: Continue care plan as documented. * Care Management - Parvin Barksdale RN - 10/31/2021 1:58 PM EDT OFFICE OF CARE MANAGEMENT PROGRESS NOTE LOS: Hospital Day 1 day Chart reviewed, care reviewed with primary team and at interdisciplinary rounds. Patient continues to meet inpatient level of care related to: Arthrodesis with surgical intervention Functional status prior to admission: unable to assess Home Environment: Others in the home: spouse. Current Living Arrangements: home/apartment/condo. Accessibility Concerns: . Current Functional Ability: Completely Dependent DME used at home: unable to assess DME Needed at Discharge: Patient is insured through: Primary Insurance: MEDICARE Payor: MEDICARE / Plan: MEDICARE PART A & B / Product Type: *No Product type* / Secondary Insurance: MEDICAID [place] Prescription Coverage: Yes Last Physical Therapy Recommendation: with Last Occupational Therapy Recommendation: with Plan for discharge is: Pending Hospital Course and PT/OT Recommendations Outpatient Agency/Support Group Needs: *TBD Agency Referrals & Follow-up Care: Transportation: Barriers to discharge: Basic needs, Discharge planning Psych: Mental health Plan going forward: TBD pending rehab evals and hospital course. COLLE[facility] DEAN support for PMH PTSD, bipolar DO and anxiety. Care Management will continue to follow and assist with discharge planning and coordination of care as indicated. Anticipated Date of Discharge: 11/04/2021 Parvin BATEMAN, RN Pager #[phone] * Initial Assessments - Parvin Barksdale RN - 10/31/2021 1:55 PM EDT Office of Care Management Initial Assessment Medical record reviewed. Plan of care and patient status discussed with direct care Registered Nurse and/or Care Team in multidisciplinary rounds. Reason for Hospitalization: spinal surgery Last COVID test: Lab Results Component Value Date COVID19 Not Detected 10/27/2021 [id number] Not Detected 07/03/2020 Present on Admission: ??? Arthrodesis present Hospitalizations Within the Past 30 Days: no previous admission in last 30 days Patient receiving hospital care under IPI- SDP Admission (IP) status. Admission order reviewed. Primary Insurance on file: MEDICARE Secondary Insurance on file:@ Primary care provider on file: Hoang Castellanos, DOCUMENTATION CONSULTANT [phone] Pharmacy: [facility] - [place], [place] - [address] [facility] [address] [place] [address] [facility] - [place], [place] - [address] [facility] [address] Advance Care Planning: Attempt Cardiopulmonary Resuscitation - Inpatient Received -Advanced Directive: Yes, on file Who is your DPOA-HC?: Sibling Current Functional Ability: Completely Dependent Functional Status Prior to Admission: unable to assess Home Environment: Others in the home: spouse. Current Living Arrangements: home/apartment/condo. Accessibility Concerns: . Current DME: unable to assess [address] [place] [address] Social & Family Supports: All names listed below confirmed with patient as current and correct Extended Emergency Contact Information Primary Emergency Contact: Kyra Mittal Address: [address] of [place] Relation: Sibling Secondary Emergency Contact: jodie espinoza Mobile Relation: Passenger Attendant Current Care Provided by: unable to assess Transportation: no concerns Transportation Anticipated: ambulance, family or friend will provide Assessment: Patient with no apparent RNCM/SW needs at this time. No housing, transportation, insurance, resources concerns identified at this time. Supports in place to achieve a safe post-hospital transition. No identified barriers to accessing necessary care and/or follow-up after discharge. Plan: Patient to d/c TBD pending hospital course and rehab evals. COLLEGE DEAN consult requested for emotional support r/t PMH PTSD, bipolar DO and anxiety. Registered Nurse Cleaning Attendant / Supervisor [employer] will continue to follow patient???s progress and remain available if situation changes for coordination of care, psychosocial support and/or discharge planning. Office of Care Management Parvin Barksdale MSN, RN Pager #[phone] * Plan of Care - Irasema Calix RN - 10/30/2021 6:42 PM EDT Pt arrived to room 504A from PACU at ~1735. Pt is A&O x 4. VSS on 2L NC. Surgical site covered with mepilex, CDI. SHERIN drain intact with adequate output. 9/10 pain, PRN and scheduled meds given. Lidocaine patches applied to back. Call light within reach. Will continue to monitor. * Brief Op Note - Campos Schumacher MD - 10/30/2021 1:30 PM EDT Brief Operative Note Patient Name: Jeannie Rico : [id number] MR#: [id number] Case Date: 10/30/2021 Surgeon: Surgeon(s) and Role: * Campos Schumacher MD - Primary * Palmer Lu MD - Resident Preoperative diagnosis: C 5/6 and 6/7 ACDF Postoperative diagnosis: C 5/6 and 6/7 ACDF Procedure(s) (LRB): @ARTHRODESIS, POSTERIOR CERVICAL SPINE (WRVU 17.4) (N/A) POST SPINAL INSTRUMENTATION, 3-6 VERTEBRA, NON SEGMENTAL (WRVU 12.56) (N/A) MODIFIER,POSTERIOR CERVICAL INFINITY MEDTRONIC (N/A) LAMINECTOMY, CX W/EXPLOR , W/O FACETECTOMY, 1 OR 2 SEGMENTS (WRVU 17.61) (N/A) Anesthesia: General Findings: stenosis; no CSF seen; EMG, SSEP and motor unchanged during case Intake: Intraprocedure Crystalloid Total Intake Lactated Ringers 1000.00 mL lactated ringers infusion 600.00 mL Total Intake 1600 mL Output Urine Output 550 mL Total Output 550 mL Net Net Volume 1050 mL Transfusion No data found in the last 1 encounters. Output: Estimated Blood Loss:75cc Urine Output:: 550 mL Other Output: (no other output recorded) Drains: SHERIN Specimens removed during surgery: None Attestation: Case Date: 10/30/2021 I was present and I participated during the entire procedure (does not need to include opening and closing). (Please see the Surgical Encounter Summary for any Implant and Specimen details pertinent to this patient.) * Op Note - Palmer Lu MD - 10/30/2021 10:44 AM EDT [facility] [place] Patient Name: Jeannie Rico : [id number] MR#: [id number] Case Date: 10/30/2021 Surgeon: Surgeon(s) and Role: * Campos Schumacher MD - Primary * Palmer Lu MD - Resident Preoperative diagnosis: C5-6 stenosis with myelopathy Postoperative diagnosis: C5-6 stenosis with myelopathy Procedure(s) (LRB): @ARTHRODESIS, POSTERIOR CERVICAL SPINE (WRVU 17.4) (N/A) POST SPINAL INSTRUMENTATION, 3-6 VERTEBRA, NON SEGMENTAL (WRVU 12.56) (N/A) MODIFIER,POSTERIOR CERVICAL INFINITY MEDTRONIC (N/A) LAMINECTOMY, CX W/EXPLOR , W/O FACETECTOMY, 1 OR 2 SEGMENTS (WRVU 17.61) (N/A) 1. C5-6 laminectomy, undercutting of C4 and C7 2. C5-6 posterior instrumentation with autograft and allograft 3. Fluoroscopy use 4. Ultrasound use 5. Neuro monitoring use Findings: Degenerative cervical stenosis as expected Anesthesia: General Estimated Blood Loss: * No values recorded between 10/30/2021 10:44 AM and 10/30/2021 1:24 PM * Specimens removed during surgery: None Drains: SHERIN x1 (subfascial) Surgical Closure: Primary Closure - skin incision is completely closed without any wires, kennedi, drains or other devices Disposition: awakened from anesthesia, extubated and taken to the recovery room in a stable condition, having suffered no apparent untoward event. Condition: doing well without problems (Please see the Surgical Encounter Summary for any Implant and Specimen details pertinent to this patient.) HPI/Surgical Indications: 61-year-old female with predominantly C5-6 degenerative stenosis with myelopathy presenting for elective surgical decompression. Benefits and risks were discussed with the patient and via telephone with her DPOA which is her sister and informed consent was obtained. Procedure Description: The patient was transported to the operating room and smooth general anesthesia was induced by the anesthesia team. Neuro monitoring leads were placed and baseline signals were obtained demonstratingsome baseline lower signals on the right arm and leg concordant with preoperative exam. All hemodynamic monitoring lines were in place. SCDs for DVT prophylaxis were in place. The Garsia head clampwas placed and the patient was then flipped onto thoracic gel rolls in the prone position with armstucked at her side. All pressure points were padded. Fluoroscopy was used to nova the midline posterior cervical incision along the intended levels and this was then prepped and draped in the usual sterile fashion. Preoperative antibiotics were given. A hard timeout was then performed confirming patient identity and procedure. Everyone agreed to proceed. After local anesthetic was administered the skin was opened sharply with #10 blade followed by dissection with Bovie electrocautery down the midline ligamentum nuchae to the spinous processes and then via subperiosteal dissection to expose the lateral masses in their entirety. Hemostasis was obtained with bipolar electrocautery. Fluoroscopy was then obtained to identify our levels. We placed a clamp at the C4 spinous process level which then allowed us to identify our intended working levels immediately below which were C5 and C6, which was again confirmed by fluoroscopy. Acid Tender holes for our screws were then fashioned bilaterally along the lateral masses of C5 and C6 using a modified Magerl technique with insertion point slightly inferior and medial to the midpoint ofthe lateral masses first using the [employer]tera[employer] Cirilo C1 drill bit for the cortical rim, followed by hand drill, tap, and confirmation with ball tip feeler. The right C6 entry point required redirection to avoid entering the facet space. Once we were satisfied with the car pilot holes bone wax was placed in thepilot holes. Attention was then given to laminectomy. The [employer]tera[employer] Cirilo drill M8 bit was used to to drill troughs along the spinal laminar junctions bilaterally at C5 and C6 followed by the use of Kerrison to releasethe ligamentum flavum and remove the C5 and 6 lamina in one piece. Kerrison was used to undercut the C4 and C7 levels and to completely remove the ligamentum flavum at these levels. No durotomies encountered. Ultrasound was then utilized to confirm full decompression of the underlying dura with visible CSF pulsation circumferentially around the spinal cord all throughout our surgical exposure. Hemostasis was then obtained with combination of FloSeal, thrombin soaked Gelfoam, and patties. The drill was then used to decorticate the C5 and C6 lateral masses. We then placed 12 mm lateral mass screws x4 at C5 and 6 followed by placement of rods and final tightening using the Medtronic Infinity posterior instrumentation set. Lastly, DBM with autograft was then packed lateral to our hardware to promote bone healing. Attention was then given to closure. [place] irrigation was then performed and meticulous hemostasis obtained once again. A small round subfasical SHERIN drain was passed and placed in the epidural space. The wound was closed in a multilayer fashion using 0 Vicryl for paravertebral muscle, 0 Vicryl fordeep fascia, 2-0 Vicryl for superficial fascia, 2-0 Vicryl for deep dermal layer, and artie for the skin. An anchoring Vicryl stitch was placed along the exit site of the SHERIN drain. Sterile dressingapplied. The patient was then flipped onto the recovery bed, Garsia pile header removed, and extubated without incident. At the conclusion, neuro monitoring signals were all at baseline. Dr. Schumacher was present for the entire procedure. Surgical Infection Prevention Bundle Used? No Palmer Lu MD Associated attestation - Campos Schumacher MD - 11/08/2021 6:25 PM EDT Attestation: Case Date: 10/30/2021 I was present and I participated during the entire procedure (does not need to include opening and closing). CAMPOS SCHUMACHER MD 11/08/2021 documented in this encounter Plan of Treatment Not on file documented as of this encounter Procedures Procedure Name Priority Date/Time Associated Diagnosis Comments POCT GLUCOSE Routine 11/04/2021 11:50 AM EDT POCT GLUCOSE Routine 11/04/2021 7:41 AM EDT POCT GLUCOSE Routine 11/04/2021 3:56 AM EDT POCT GLUCOSE Routine 11/03/2021 11:46 PM EDT POCT GLUCOSE Routine 11/03/2021 7:56 PM EDT POCT GLUCOSE Routine 11/03/2021 3:15 PM EDT POCT GLUCOSE Routine 11/03/2021 12:03 PM EDT POCT GLUCOSE Routine 11/03/2021 7:44 AM EDT POCT GLUCOSE Routine 11/03/2021 4:13 AM EDT POCT GLUCOSE Routine 11/03/2021 12:03 AM EDT POCT GLUCOSE Routine 11/02/2021 7:51 PM EDT RAPID COVID-19 PCR ([facility]) Routine 11/02/2021 4:15 PM EDT POCT GLUCOSE Routine 11/02/2021 3:35 PM EDT POCT GLUCOSE Routine 11/02/2021 11:57 AM EDT XR CHEST PA AND LATERAL Routine 11/03/19 9:39 AM EDT POCT GLUCOSE Routine 11/02/2021 7:20 AM EDT DUPLEX FOR DVT BILAT LEGS Routine 11/02/2021 7:15 AM EDT Right leg weakness POCT GLUCOSE Routine 11/02/2021 4:02 AM EDT POCT GLUCOSE Routine 11/01/2021 11:[address] HEAD WO & MULTIPHASE CTA HEAD/NECK W (STROKE PROTOCOL) STAT 11/01/2021 10:35 PM EDT POCT GLUCOSE Routine 11/01/2021 7:50 PM EDT POCT GLUCOSE Routine 11/01/2021 4:01 PM EDT POCT GLUCOSE Routine 11/01/2021 11:56 AM EDT POCT GLUCOSE Routine 11/01/2021 7:52 AM EDT POCT GLUCOSE Routine 11/01/2021 3:09 AM EDT POCT GLUCOSE Routine 11/01/2021 12:37 AM EDT POCT GLUCOSE Routine 10/31/2021 8:17 PM EDT POCT GLUCOSE Routine 10/31/2021 4:16 PM EDT HC TROPONIN T STAT 10/31/2021 12:21 PM EDT HC PHOSPHORUS, SERUM Routine 10/31/2021 12:21 PM EDT PRO-BRAIN NATRIURETIC PEPTIDE Routine 10/31/2021 12:21 PM EDT HC MAGNESIUM, SERUM Routine 10/31/2021 1 2:21 PM EDT BASIC METABOLIC PANEL (NON-FASTING) Routine 10/31/2021 12:21 PM EDT EKG 12-LEAD Routine 10/31/2021 12:08 PM EDT Cervical spinal stenosis Bradycardia POCT GLUCOSE Routine 10/31/2021 11:53 AM EDT HEMOGRAM Routine 10/31/2021 8:14 AM EDT DIFFERENTIAL, AUTOMATED Routine 04/09/20 22 8:14 AM EDT HC CBC,PLT & AUTO DIFF Routine 8:14 AM EDT POCT GLUCOSE Routine 10/31/2021 7:50 AM EDT POCT GLUCOSE Routine 10/31/2021 5:36 AM EDT POCT GLUCOSE Routine 10/30/2021 11:28 PM EDT POCT GLUCOSE Routine 10/30/2021 7:50 PM EDT XR CERVICAL SPINE 2 OR 3 VIEWS Routine 10/30/2021 5:15 PM EDT POCT GLUCOSE Routine 10/30/2021 3:17 PM EDT XR FLUORO NO RAD <1HR - OR USE Routine 10/30/2021 1:30 PM EDT Dudley W/O Facetec Foramot/Dskc 07/26 Vrt Seg, Cervical ([id number]) 10/30/2021 8:44 AM EDT C 5/6 and 6/7 ACDF MODIFIER,POSTERIOR CERVICAL INFINITY MEDTRONIC 10/30/2021 8:44 AM EDT C 5/6 and 6/7 ACDF Posterior Segmental Instrumentation 3-6 Vrt Seg ([id number]) 10/30/2021 8:44 AM EDT C 5/6 and 6/7 ACDF Arthrodesis, Post/Posterolat Tq, Sngle Interspace; Cervical Below C2 Segmnt ([id number]) 10/30/2021 8:44 AM EDT C 5/6 and 6/7 ACDF POCT GLUCOSE Routine 10/30/2021 8:11 AM EDT documented in this encounter Results * POCT Glucose (11/04/2021 11:50 AM EDT) POC Glucose 97 65 - 199 mg/dL [facility] Comment: Supplemental ranges: <140 mg/dL before meals <180 mg/dL all other times of the day Blood 11/04/2021 11:5 0 AM EDT 11/04/2021 11:50 AM EDT Campos Schumacher MD POINT OF CARE TEST O ALYSON Performing Organization Address [facility] Co de Phone Number [facility] [place] [address] * POCT Glucose (11/04/2021 7:41 AM EDT) POC Glucose 133 65 - 199 mg/dL [facility] Comment: Supplemental ranges: <140 mg/dL before meals <180 mg/dL all other times of the day Blood 11/04/2021 7:41 AM EDT 11/04/2021 7:41 AM EDT Campos Schumacher MD POINT OF CARE TEST O ALYSON Performing Organization Address [facility] Co de Phone Number [facility] [place] [address] * POCT Glucose (11/04/2021 3:56 AM EDT) POC Glucose 85 65 - 199 mg/dL [facility] Comment: Supplemental ranges: <140 mg/dL before meals <180 mg/dL all other times of the day Blood 11/04/2021 3:56 AM EDT 11/04/2021 3:56 AM EDT Campos Schuamcher MD POINT OF CARE TEST O ALYSON Performing Organization Address [facility] Co de Phone Number [facility] [place] [address] * POCT Glucose (11/03/2021 11:46 PM EDT) POC Glucose 98 65 - 199 mg/dL [facility] Comment: Supplemental ranges: <140 mg/dL before meals <180 mg/dL all other times of the day Blood 11/03/2021 11:4 6 PM EDT 11/03/2021 11:46 PM EDT Campos Schumacher MD POINT OF CARE TEST O ALYSON Performing Organization Address [facility]/ZIP Co de Phone Number [facility] [place] [address] * POCT Glucose (11/03/2021 7:56 PM EDT) POC Glucose 95 65 - 199 mg/dL [facility] Comment: Supplemental ranges: <140 mg/dL before meals <180 mg/dL all other times of the day Blood 11/03/2021 7:56 PM EDT 11/03/2021 7:56 PM EDT Campos Schumacher MD POINT OF CARE TEST O ALYSON Performing Organization Address [facility] Co de Phone Number [facility] [place] [address] * (ABNORMAL) POCT Glucose (11/03/2021 3:15 PM EDT) POC Glucose 216(H) 65 - 199 mg/dL [facility] Comment: Supplemental ranges: <140 mg/dL before meals <180 mg/dL all other times of the day Blood 11/03/2021 3:15 PM EDT 11/03/2021 3:15 PM EDT Campos Schumacher MD POINT OF CARE TEST O JEREMYERAKE Performing Organization Address [facility] Co de Phone Number [facility] [place] [address] * (ABNORMAL) POCT Glucose (11/03/2021 12:03 PM EDT) POC Glucose 307(H) 65 - 199 mg/dL [facility] Comment: Supplemental ranges: <140 mg/dL before meals <180 mg/dL all other times of the day Blood 11/03/2021 12:0 3 PM EDT 11/03/2021 12:03 PM EDT Campos Schumacher MD POINT OF CARE TEST O ALYSON Performing Organization Address [facility] Co de Phone Number [facility] [place] [address] * POCT Glucose (11/03/2021 7:44 AM EDT) POC Glucose 110 65 - 199 mg/dL [facility] Comment: Supplemental ranges: <140 mg/dL before meals <180 mg/dL all other times of the day Blood 11/03/2021 7:44 AM EDT 11/03/2021 7:44 AM EDT Campos Schumacher MD POINT OF CARE TEST O ALYSON Performing Organization Address [facility] Co de Phone Number [facility] [place] [address] * POCT Glucose (11/03/2021 4:13 AM EDT) POC Glucose 103 65 - 199 mg/dL [facility] Comment: Supplemental ranges: <140 mg/dL before meals <180 mg/dL all other times of the day Blood 11/03/2021 4:13 AM EDT 11/03/2021 4:13 AM EDT Campos Schumacher MD POINT OF CARE TEST O ALYSON Performing Organization Address [facility] Co de Phone Number [facility] [place] [address] * POCT Glucose (11/03/2021 12:03 AM EDT) POC Glucose 100 65 - 199 mg/dL [facility] Comment: Supplemental ranges: <140 mg/dL before meals <180 mg/dL all other times of the day Blood 11/03/2021 12:0 3 AM EDT 11/03/2021 12:03 AM EDT Campos Schumacher MD POINT OF CARE TEST O RDERABLES Performing Organization Address City/[facility]/ZIP Co de Phone Number [facility] [place] [address] * POCT Glucose (11/02/2021 7:51 PM EDT) POC Glucose 116 65 - 199 mg/dL [facility] Comment: Supplemental ranges: <140 mg/dL before meals <180 mg/dL all other times of the day Blood 11/02/2021 7:51 PM EDT 11/02/2021 7:51 PM EDT Campos Schumacher MD POINT OF CARE TEST O ALYSON Performing Organization Address [facility] Co de Phone Number [facility] [place] [address] * COVID-19 PCR (11/02/2021 4:15 PM EDT) Pathologist [facility] SARS-CoV-2 RNA PCR Not Detected Not Detected [facility] Comment: This result should be interpreted in combination with the clinical observations, patient history and epidemiological information. For testing of asymptomatic individuals, assay performance characteristics and clinical utility have not been evaluated. Testing for SARS-CoV-2 (Severe acute respiratory syndrome coronavirus 2, formerly known as 2019 novel coronavirus or 2019-nCoV) to aid in the diagnosis of COVID-19 is performed using the Simplexa COVID-19 Direct Assay by Viewfinity as authorized by the FDA issued Emergency Use Authorization (EUA). This assay is intended for In-vitro Diagnostic (IVD) use with nasopharyngeal swabs collected from individuals meeting the CDC criteria for testing. The assay is performed based on the instructions for use and additional guidance provided by the FDA. Testing is performed in the Microbiology Laboratory within the Department of Pathology and Laboratory Medicine at [facility], certified under the Clinical Laboratory Improvement Amendments of 1988 (CLIA), 42 U.S.C. section 263a, to perform high complexity tests. Assay performance has been verified according to clinical laboratory regulatory requirements. Test results are provided above. A result of Not Detected indicates that the viral RNA target is not present but does not preclude SARS-CoV-2 infection. False negative results may occur if a specimen is improperly collected, transported or handled; if amplification inhibitors are present; or if inadequate numbers of viral particles are present in the specimen. A result of Detected suggests a current or recent infection and the patient is presumed to be infected. Positive and negative predictive values for this test are highly dependent on disease prevalence. A result of Invalid indicates the inability to conclusively determine the presence or absence of SARS-CoV-2 RNA in the sample which can be due to a variety of factors. Recollection is recommended in the case of an invalid result. CDC COVID-19 criteria for testing on human specimens and clinical management guidance information are available at the CDC Coronavirus Disease 2019 (COVID-19) webpage under Information for Healthcare Professionals (https://www.cdc.gov/coronavirus/2019-ncov/hcp/index.html). Additional information about this and other EUA tests can be found in provider and patient fact sheets at the following FDA website: https://www.fda.gov/medical-devices/tifnefklhar-mhnxfyv-4437-zymbq-14-lweibgosh- use-a lcwnvecuflqnp-rtxbnku-dxzuumn/jgaje-gzqspxpyrxx-xqxb SARS-CoV-2 Source [facility] Nasopharyngeal Swab 11/03/19 4:15 PM EDT 11/02/2021 5:10 PM EDT Comment:Symptoms->Surveillan ce Narrative Resulting Agency Comment Spec In Lab Campos Schumacher MD MICROBIOLOGY - GENER AL ORDERABLES [facility] [place] [address] * POCT Glucose (11/02/2021 3:35 PM EDT) POC Glucose 100 65 - 199 mg/dL [facility] Comment: Supplemental ranges: <140 mg/dL before meals <180 mg/dL all other times of the day Blood 11/02/2021 3:35 PM EDT 11/02/2021 3:35 PM EDT Campos Schumacher MD POINT OF CARE TEST O RDLEOBARDO Performing Organization Address [facility] Co de Phone Number [facility] [place] [address] * POCT Glucose (11/02/2021 11:57 AM EDT) POC Glucose 77 65 - 199 mg/dL [facility] Comment: Supplemental ranges: <140 mg/dL before meals <180 mg/dL all other times of the day Blood 11/02/2021 11:5 7 AM EDT 11/02/2021 11:57 AM EDT Campos Schumacher MD POINT OF CARE TEST O ALYSON Performing Organization Address [facility] de Phone Number [facility] [place] [address] * XR Chest PA & Lateral (Generic) (11/02/2021 9:39 AM EDT) Anatomical Region Laterality Modality Chest N/A Digital Radiogra phy Impressions 11/02/2021 11:12 AM EDT Trace bibasilar pleural effusions and atelectasis by posterior costophrenic angles. Thank you for letting us participate in the care of this patient. ??If you are a health care provider and have any questions regarding this report, please contact the number below. ??For patients who have questions please contact the health child care associate teacher that requested your imaging first. ? Electronically signed by: Tahira Medrano MD, [facility] ([phone]), at 11/02/2021 11:12 AM Narrative 11/02/2021 11:12 AM EDT EXAMINATION: XR CHEST PA AND LATERAL (GENERIC) CLINICAL HISTORY: Respiratory sxs TECHNIQUE: AP and lateral views of the chest. COMPARISON: 07/03/2020. FINDINGS: Patient position is slightly rotated. Trace pleural effusions and atelectasis by the posterior costophrenic angles. Otherwise, the lungs appear clear. Unchanged cardiomediastinal silhouette. Pulmonary vascular redistribution consistent with pulmonary venous hypertension. Surgical clips and incompletely imaged fixation hardware by the imaged portion of the lower cervical spine. 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 Procedure Note Tahira Medrano MD - 11/02/2021 EXAMINATION: XR CHEST PA AND LATERAL (GENERIC) CLINICAL HISTORY: Respiratory sxs TECHNIQUE: AP and lateral views of the chest. COMPARISON: 07/03/2020. FINDINGS: Patient position is slightly rotated. Trace pleural effusionsand atelectasis by the posterior costophrenic angles. Otherwise, the lungsappear clear. Unchanged cardiomediastinal silhouette. Pulmonary vascularredistribution consistent with pulmonary venous hypertension. Surgical clips andincompletely imaged fixation hardware by the imaged portion of the lower cervicalspine. 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 IMPRESSION Trace bibasilar pleural effusions and atelectasis by posterior costophrenic angles. Thank you for letting us participate in the care of this patient. If youare a health care provider and have any questions regarding this report,please contact the number below. For patients who have questions please contactthe health child care associate teacher that requested your imaging first. Campos Schumacher MD IMG DX ORDERABLES * POCT Glucose (11/02/2021 7:20 AM EDT) POC Glucose 97 65 - 199 mg/dL [facility] Comment: Supplemental ranges: <140 mg/dL before meals <180 mg/dL all other times of the day Blood 11/02/2021 7:20 AM EDT 11/02/2021 7:20 AM EDT Campos Schumacher MD POINT OF CARE TEST O RDERABLES Performing Organization Address City/[facility]/ZIP Co de Phone Number [facility] [place] [address] * Duplex Study for DVT, Bilat legs (11/02/2021 7:15 AM EDT) VB Text Report Department: Vascular Surgery Lab Patient: [id number] (JEANNIE RICO) CPT: 59850 Referring Physician: CAMPOS SCHUMACHER ?? Indications: New O2 requirements, s/p C-spine surgery, ? DVT Findings: RIGHT: Patent common femoral vein and popliteal vein with spontaneous, respirophasic Doppler waveforms that respond normally to augmentation maneuvers. The common femoral vein, saphenofemoral junction, femoral vein through the thigh and popliteal vein are fully compressible. Patent posterior tibial and peroneal veins with no evidence of thrombus. LEFT: Patent common femoral vein and popliteal vein with spontaneous, respirophasic Doppler waveforms that respond normally to augmentation maneuvers. The common femoral vein, saphenofemoral junction, femoral vein through the thigh and popliteal vein are fully compressible. Patent posterior tibial and peroneal veins with no evidence of thrombus. Interpretation: RIGHT: ??No evidence of lower extremity deep venous thrombosis. LEFT: ??No evidence of lower extremity deep venous thrombosis. Comparison: ?? No previous study in our vascular lab database for comparison. Electronically Signed by: ADAL RAND on 2021-11-03 01:46:55 PM [facility] VB Text Report End of Report [facility] 11/02/2021 7:15 AM EDT Campos Schumacher MD VASCULAR ORDERABLES Performing Organization Address [facility]/ZIP Co de Phone Number [facility] * POCT Glucose (11/02/2021 4:02 AM EDT) POC Glucose 90 65 - 199 mg/dL [facility] Comment: Supplemental ranges: <140 mg/dL before meals <180 mg/dL all other times of the day Blood 11/02/2021 4:02 AM EDT 11/02/2021 4:02 AM EDT Campos Schumacher MD POINT OF CARE TEST O ALYSON [facility] [place] [address] * POCT Glucose (11/01/2021 11:59 PM EDT) POC Glucose 97 65 - 199 mg/dL [facility] Comment: Supplemental ranges: <140 mg/dL before meals <180 mg/dL all other times of the day Blood 11/01/2021 11:5 9 PM EDT 11/01/2021 11:59 PM EDT Campos Schumacher MD POINT OF CARE TEST O ALYSON Performing Organization Address [facility]/ZIP Co de Phone Number [facility] [place] [address] * CT Head wo & Multiphase CTA Head/Neck (THROMBECTOMY PROTOCOL) (11/01/2021 10:35 PM EDT) Anatomical Region Laterality Modality Head Computed Tomogra phy 11/01/2021 10:5 5 PM EDT Impressions 11/02/2021 12:[address] HEAD WITHOUT CONTRAST: * ??No acute intracranial abnormality. MULTIPHASE CTA HEAD AND CTA NECK: * ??No intracranial large vessel occlusion. * ??No hemodynamically significant stenosis, aneurysm or dissection of anterior or posterior circulation. * ??Postsurgical changes in posterior neck. Preliminary report signed by: Tyron Roach at 11/01/2021 11:52 PM I have personally reviewed the image(s) and the resident's interpretation and agree with the findings, Janie Aguilar MD at 11/02/2021 12:47 AM Thank you for letting us participate in the care of this patient. ??If you are a health care provider and have any questions regarding this report, please contact the number below. ??For patients who have questions please contact the health child care associate teacher that requested your imaging first. ? Electronically signed by: Janie Aguilar MD, [facility] ([phone]), at 11/02/2021 12:47 AM Narrative 11/02/2021 12:47 AM EDT EXAMINATION: CT HEAD WO & MULTIPHASE CTA HEAD/NECK (THROMBECTOMY PROTOCOL) CLINICAL HISTORY: cva sx. neuro feficiets TECHNIQUE: CT of head without intravenous contrast. Multiphase CTA of the carotids and [place] is performed after the administration of 65cc of Omnipaque 350 intravenous contrast MIP and 3-D volumetric reconstructions were created. COMPARISON: CT head 08/07/2021 FINDINGS: CT Head without contrast: Motion artifact confounds evaluation. No scalp hematoma or skull fracture. No acute intracranial hemorrhage or extra-axial collection. No mass or mass effect. Bryan-white matter differentiation is normal. The ventricles are normal. Basilar cisterns are patent. Visualized paranasal sinuses and otomastoid air spaces appear well aerated. CTA Head/Neck: 2 vessel aortic arch with common origin of the right innominate and left common carotid arteries. Patent origins of the great vessels. Bilateral CCAs, ICAs, MCAs, ACAs, and anterior communicating artery are patent without evidence of hemodynamically significant stenosis, aneurysm or dissection. Bilateral vertebral arteries, basilar artery, bilateral furnace setter, and bilateral posterior communicating arteries are patent without evidence of hemodynamically significant stenosis, aneurysm or dissection. Diminutive right P1 segment. No perfusion asymmetry on the delayed phase images. No abnormal enhancement in the head and neck. Globes, orbits, maxillofacial soft tissues, aerodigestive tract, and superior mediastinum are within normal limits. Left greater than right dependent atelectasis in lung apices. Multilevel degenerative changes in the spine. Unremarkable appearance of the C5-C6 posterior fusion hardware; overlying soft tissue edema and posterior midline skin artie. Procedure Note De Aguilar MD - 11/02/2021 EXAMINATION: CT HEAD WO & MULTIPHASE CTA HEAD/NECK (THROMBECTOMYPROTOCOL) CLINICAL HISTORY: cva sx. neuro feficiets TECHNIQUE: CT of head without intravenous contrast. Multiphase CTA of the carotidsand [place] is performed after the administration of 65cc ofOmnipaque 350 intravenous contrast MIP and 3-D volumetric reconstructions werecreated. COMPARISON: CT head 08/07/2021 FINDINGS: CT Head without contrast: Motion artifact confounds evaluation. No scalp hematoma or skull fracture. No acute intracranial hemorrhage or extra-axial collection. No mass or mass effect. Bryan-white matter differentiation is normal. The ventricles are normal. Basilar cisterns are patent. Visualized paranasal sinuses and otomastoid air spaces appear wellaerated. CTA Head/Neck: 2 vessel aortic arch with common origin of the right innominate and leftcommon carotid arteries. Patent origins of the great vessels. Bilateral CCAs, ICAs, MCAs, ACAs, and anterior communicating artery arepatent without evidence of hemodynamically significant stenosis, aneurysm or dissection. Bilateral vertebral arteries, basilar artery, bilateral furnace setter, andbilateral posterior communicating arteries are patent without evidence ofhemodynamically significant stenosis, aneurysm or dissection. Diminutive right [id number]. No perfusion asymmetry on the delayed phase images. No abnormalenhancement in the head and neck. Globes, orbits, maxillofacial soft tissues, aerodigestive tract, andsuperior mediastinum are within normal limits. Left greater than right dependent atelectasis in lung apices. Multilevel degenerative changes in thespine. Unremarkable appearance of the C5-C6 posterior fusion hardware; overlyingsoft tissue edema and posterior midline skin artie. IMPRESSION CT HEAD WITHOUT CONTRAST: * No acute intracranial abnormality. MULTIPHASE CTA HEAD AND CTA NECK: * No intracranial large vessel occlusion. * No hemodynamically significant stenosis, aneurysm or dissection ofanterior or posterior circulation. * Postsurgical changes in posterior neck. Preliminary report signed by: Tyron Roach at 11/01/2021 11:52 PM I have personally reviewed the image(s) and the resident's interpretationand agree with the findings, Janie Aguilar MD at 11/02/2021 12:47 AM Thank you for letting us participate in the care of this patient. If youare a health care provider and have any questions regarding this report,please contact the number below. For patients who have questions please contactthe health child care associate teacher that requested your imaging first. Electronically signed by: Janie Aguilar MD, [facility]([phone]), at 11/02/2021 12:47 AM Campos Schumacher MD IMG CT ORDERABLES * POCT Glucose (11/01/2021 7:50 PM EDT) POC Glucose 91 65 - 199 mg/dL [facility] Comment: Supplemental ranges: <140 mg/dL before meals <180 mg/dL all other times of the day Blood 11/01/2021 7:50 PM EDT 11/01/2021 7:50 PM EDT Campos Schumacher MD POINT OF CARE TEST O RDERAKE Performing Organization Address City/[facility]/ZIP Co de Phone Number [facility] [place] [address] * POCT Glucose (11/01/2021 4:01 PM EDT) POC Glucose 110 65 - 199 mg/dL [facility] Comment: Supplemental ranges: <140 mg/dL before meals <180 mg/dL all other times of the day Blood 11/01/2021 4:01 PM EDT 11/01/2021 4:01 PM EDT Campos Schumacher MD POINT OF CARE TEST O RDERABLES [facility] [place] [address] * POCT Glucose (11/01/2021 11:56 AM EDT) POC Glucose 119 65 - 199 mg/dL [facility] Comment: Supplemental ranges: <140 mg/dL before meals <180 mg/dL all other times of the day Blood 11/01/2021 11:5 6 AM EDT 11/01/2021 11:56 AM EDT Campos Schumacher MD POINT OF CARE TEST O ALYSON Performing Organization Address City/[facility] Co de Phone Number [facility] [place] [address] * POCT Glucose (11/01/2021 7:52 AM EDT) POC Glucose 108 65 - 199 mg/dL [facility] Comment: Supplemental ranges: <140 mg/dL before meals <180 mg/dL all other times of the day Blood 11/01/2021 7:52 AM EDT 11/01/2021 7:52 AM EDT Campos Schumacher MD POINT OF CARE TEST O ALYSON Performing Organization Address [facility] Co de Phone Number [facility] [place] [address] * POCT Glucose (11/01/2021 3:09 AM EDT) POC Glucose 117 65 - 199 mg/dL [facility] Comment: Supplemental ranges: <140 mg/dL before meals <180 mg/dL all other times of the day Blood 11/01/2021 3:09 AM EDT 11/01/2021 3:09 AM EDT Campos Schumacher MD POINT OF CARE TEST O ALYSON Performing Organization Address City/[facility] Co de Phone Number [facility] [place] [address] * POCT Glucose (11/01/2021 12:37 AM EDT) POC Glucose 134 65 - 199 mg/dL [facility] Comment: Supplemental ranges: <140 mg/dL before meals <180 mg/dL all other times of the day Blood 11/01/2021 12:3 7 AM EDT 11/01/2021 12:37 AM EDT Campos Schumacher MD POINT OF CARE TEST O ALYSON Performing Organization Address City/[facility] Co de Phone Number [facility] [place] [address] * POCT Glucose (10/31/2021 8:17 PM EDT) POC Glucose 109 65 - 199 mg/dL [facility] Comment: Supplemental ranges: <140 mg/dL before meals <180 mg/dL all other times of the day Blood 10/31/2021 8:17 PM EDT 10/31/2021 8:17 PM EDT Campos Schumacher MD POINT OF CARE TEST O ALYSON Performing Organization Address [facility] Co de Phone Number [facility] [place] [address] * POCT Glucose (10/31/2021 4:16 PM EDT) POC Glucose 129 65 - 199 mg/dL [facility] Comment: Supplemental ranges: <140 mg/dL before meals <180 mg/dL all other times of the day Blood 10/31/2021 4:16 PM EDT 10/31/2021 4:16 PM EDT Campos Schumacher MD POINT OF CARE TEST O ALYSON Performing Organization Address City/[facility] Co de Phone Number [facility] [place] [address] * (ABNORMAL) pro-Brain Natriuretic Peptide (10/31/2021 12:21 PM EDT) ProBNP 428(H) <=124 pg/mL [facility] Blood Venous Draw / Unknown 10/31/2021 12:21 PM EDT 10/31/2021 12:57 PM EDT Narrative Resulting Agency Comment Spec In Lab Cheryl GR CHEMISTRY ORDERAB LES Performing Organization Address [facility] Co de Phone Number [facility] [place] [address] * Troponin (10/31/2021 12:21 PM EDT) [facility] Troponin-T <0.01 0.00 - 0.00 ng/mL [facility] Comment: The 99th percentile for Troponin T is less than 0.01 ng/mL, any detectable cTnT concentration using this assay should be considered elevated. According to the third universal definition of myocardial infarction the following criteria with a clinical presentation consistent with acute myocardial ischemia meets the diagnosis for a myocardial infarction ([place]). Detection of a rise and/or fall of cTnT, with at least one value greater than the 99th percentile (> or = 0.01) and with at least one of the following ?? Symptoms of ischemia ?? New or presumed new significant YO-gfyvnbp-U wave (ST-T) changes or new left bundle branch block (LBBB) ?? Development of pathologic Q waves in the ECG ?? Imaging evidence of new loss of viable myocardium or new regional wall motion abnormality ?? Identification of an intracoronary thrombus by angiography or autopsy Samples for cTnT testing should be obtained serially upon first assessment and again 3 to 6 hours later. If the clinical suspicion is high and previous samples have been negative an additional sample may be indicated. Reference: Third [place] Definition of Myocardial Infarction. Journal of the [employer] 2012;60:1581-98 Blood 10/31/2021 12:2 1 PM EDT 10/31/2021 12:32 PM EDT Narrative Resulting Agency Comment Spec In Lab Campos Schumacher MD CHEMISTRY ORDERABLES Performing Organization Address [facility] Co de Phone Number [facility] [place] [address] * (ABNORMAL) Basic Metabolic Panel (non-fasting) (10/31/2021 12:21 PM EDT) [facility] Glucose Lvl 118 65 - 199 mg/dL [facility] Comment:Diabetes: >=200 mg/d L plus symptoms BUN 12 8 - 18 mg/dL [facility] Creatinine 0.74 0.70 - 1.20 mg/dL [facility] Sodium 134(L) 135 - 145 mmol/L [facility] Potassium 4.7 3.5 - 5.0 mmol/L [facility] Comment: Please note: ??Patients with WBC >100,000 may have falsely elevated Potassium levels. ??For accurate Potassium quantification in these patients send serum separator tube (gold top) for subsequent determinations. ??Contact the Clinical Chemistry Laboratory if there are any questions. Chloride 98 98 - 107 mmol/L [facility] CO2 28 22 - 31 mmol/L [facility] Anion Gap 8 5 - 15 mmol/L [facility] Calcium 9.0 8.5 - 10.5 mg/dL [facility] Estimated GFR 87 >=60 mL/min/1. 73 m?? [facility] Comment: This patient? s estimated glomerular filtration rate (eGFR) is between 87 mL/min/1.73 m2 (patients with less muscle mass) and 101 mL/min/1.73 m2 (patients with more muscle mass) as determined by the CKD-EPI equation. Assessment of eGFR is not appropriate when creatinine concentrations are rapidly changing. For clinical decisions where creatinine clearance will affect therapy, a 24-hour urine creatinine clearance may be advised. Assignment of CKD stage 1 - 5 for patients with an eGFR near the transition point between stages may be based on clinical assessment of muscle mass and symptoms in addition to eGFR. Blood 10/31/2021 12:2 1 PM EDT 10/31/2021 12:27 PM EDT Narrative Resulting Agency Comment Spec In Lab Campos Schumacher MD CHEMISTRY ORDERABLES [facility] [place] [address] * Phosphorus (10/31/2021 12:21 PM EDT) Phosphorus 4.4 2.5 - 4.5 mg/dL [facility] Blood 10/31/2021 12:2 1 PM EDT 10/31/2021 12:27 PM EDT Narrative Resulting Agency Comment Spec In Lab Campos Schumacher MD CHEMISTRY ORDERABLES Performing Organization Address [facility] Co de Phone Number [facility] [place] [address] * Magnesium (10/31/2021 12:21 PM EDT) Magnesium 0.78 0.69 - 1.07 mmol/L [facility] Blood 10/31/2021 12:2 1 PM EDT 10/31/2021 12:27 PM EDT Narrative Resulting Agency Comment Spec In Lab Campos Schumacher MD CHEMISTRY ORDERABLES Performing Organization Address [facility] Co de Phone Number [facility] [place] [address] * EKG 12 Lead (10/31/2021 12:08 PM EDT) Ventricular rate 59 BPM MUSE SYSTEM Atrial Rate 59 BPM MUSE SYSTEM P-R Interval 142 ms MUSE SYSTEM QRS Duration 82 ms MUSE SYSTEM Q-T Interval 408 ms MUSE SYSTEM QTC Calculated (Bezet) 403 ms MUSE SYSTEM Calculated P [place] 9 degrees MUSE SYSTEM Calculated R [place] 27 degrees MUSE SYSTEM Calculated T [place] 11 degrees MUSE SYSTEM INTERPRETATION Sinus bradycardia with sinus arrhythmia Low voltage QRS T wave abnormality, consider anterior ischemia Abnormal ECG When compared with ECG of 07-AUG-2021 10:47, ST no longer elevated in Inferior leads T wave inversion now evident in Anterior leads Confirmed by MD Helder, Tavon ([id number]) on 11/01/2021 8:56:31 AM MUSE SYSTEM 10/31/2021 12:0 8 PM EDT 11/01/2021 8:56 AM EDT Campos Schumacher MD ECG ORDERABLES MUSE SYSTEM * POCT Glucose (10/31/2021 11:53 AM EDT) Pathologist [facility] POC Glucose 118 65 - 199 mg/dL [facility] Comment: Supplemental ranges: <140 mg/dL before meals <180 mg/dL all other times of the day Blood 10/31/2021 11:5 3 AM EDT 10/31/2021 11:53 AM EDT Campos Schumacher MD POINT OF CARE TEST O RDERABLES Performing Organization Address City/[facility]/ZIP Co de Phone Number [facility] [place] [address] * (ABNORMAL) Differential, Automated (10/31/2021 8:14 AM EDT) Pathologist [facility] Neutrophils % 85.7 % [facility] Neutr Abs (ANC) 9.06(H) 1.70 - 6.10 x10(3)/ L [facility] Lymphocytes % 6.3 % [facility] Lymphocytes Abs 0.7(L) 0.9 - 3.2 x10(3)/[facility] Monocytes % 7.1 % [facility] Monocyte Abs 0.8 0.3 - 0.9 x10(3)/ L [facility] Eosinophils % 0.2 % [facility] Eosinophils Abs 0.0 0.0 - 0.4 x10(3)/ L [facility] Basophils % 0.3 % [facility] Basophils Abs 0.0 0.0 - 0.1 x10(3)/ L [facility] Immature Gran % 0.40 % [facility] Comment: Immature granulocytes(IG's)percentage and absolute count will include metamyelocytes, myelocytes, and promyelocytes. Blood smears from CBCs yielding IG's will be scanned manually for concordance. If this scan disagrees with the automated IG or if promyelocytes are noted, a manual differential will be performed. Fartun Gran Abs 0.04 0.00 - 0.04 x10(3)/mc L [facility] Blood 10/31/2021 8:14 AM EDT 10/31/2021 8:47 AM EDT Narrative Resulting Agency Comment Spec In Lab Melania Gaxiola MD HEMATOLOGY ORDERAB LES Performing Organization Address City/State/[facility] Co de Phone Number [facility] [place] [address] * (ABNORMAL) Hemogram (10/31/2021 8:14 AM EDT) WBC 10.6(H) 4.0 - 9.5 x10(3)/[facility] RBC 4.26 4.00 - 5.21 x10(6)/[facility] Hemoglobin 13.0 11.7 - 15.5 g/dL [facility] Hematocrit 40.9 35.7 - 45.8 % [facility] MCV 96.0(H) 82.6 - 94.4 fL [facility] MCH 30.5 27.1 - 32.0 pg [facility] MCHC 31.8 31.7 - 35.0 g/dL [facility] Platelets 210 145 - 357 x10(3)/[facility] RDWSD 47.4(H) 37.0 - 46.0 [facility] RDWCV 13.2 11.5 - 14.1 % [facility] MPV 9.8 7.6 - 12.9 [facility] nRBC % Auto 0.0 % [facility] nRBC Abs Auto 0.000 0.000 - 0.000 x10(3)/[facility] Blood 10/31/2021 8:14 AM EDT 10/31/2021 8:47 AM EDT Narrative Resulting Agency Comment Spec In Lab Melania Gaxiola MD HEMATOLOGY ORDERAB LES Performing Organization Address [facility] Co de Phone Number [facility] [place] [address] * POCT Glucose (10/31/2021 7:50 AM EDT) POC Glucose 111 65 - 199 mg/dL [facility] Comment: Supplemental ranges: <140 mg/dL before meals <180 mg/dL all other times of the day Blood 10/31/2021 7:50 AM EDT 10/31/2021 7:50 AM EDT Campos Schumacher MD POINT OF CARE TEST O ALYSON Performing Organization Address [facility] Co de Phone Number [facility] [place] [address] * POCT Glucose (10/31/2021 5:36 AM EDT) POC Glucose 116 65 - 199 mg/dL [facility] Comment: Supplemental ranges: <140 mg/dL before meals <180 mg/dL all other times of the day Blood 10/31/2021 5:36 AM EDT 10/31/2021 5:36 AM EDT Campos Schumacher MD POINT OF CARE TEST O ALYSON Performing Organization Address [facility] Co de Phone Number [facility] [place] [address] * POCT Glucose (10/30/2021 11:28 PM EDT) POC Glucose 119 65 - 199 mg/dL [facility] Comment: Supplemental ranges: <140 mg/dL before meals <180 mg/dL all other times of the day Blood 10/30/2021 11:2 8 PM EDT 10/30/2021 11:28 PM EDT Campos Schumacher MD POINT OF CARE TEST O ALYSON Performing Organization Address [facility] Co de Phone Number [facility] [place] [address] * POCT Glucose (10/30/2021 7:50 PM EDT) POC Glucose 142 65 - 199 mg/dL [facility] Comment: Supplemental ranges: <140 mg/dL before meals <180 mg/dL all other times of the day Blood 10/30/2021 7:50 PM EDT 10/30/2021 7:50 PM EDT Campos Schumacher MD POINT OF CARE TEST O ALYSON Performing Organization Address [facility] de Phone Number [facility] [place] [address] * XR Cervical Spine 2 or 3 Views (10/30/2021 5:15 PM EDT) Anatomical Region Laterality Modality C-spine N/A Digital Radiogra phy Impressions 10/31/2021 10:23 AM EDT Baseline radiographic appearance of the cervical spine in patient status post C5-6 PCDF without findings to suggest complication. Thank you for letting us participate in the care of this patient. ??If you are a health care provider and have any questions regarding this report, please contact the number below. ??For patients who have questions please contact the health child care associate teacher that requested your imaging first. ? Narrative 10/31/2021 10:23 AM EDT EXAMINATION: XR CERVICAL SPINE 2 OR 3 VIEWS CLINICAL HISTORY: s/p C5-6 PCDF Include swimmers view TECHNIQUE: 3 view cervical spine COMPARISON: CT cervical spine 08/18/2021. FINDINGS: 6 cervical vertebral bodies are clearly visualized. Posterior cervical fusion hardware spanning C5-6. There is normal frontal and sagittal alignment. Vertebral body heights and intervertebral disc spaces are maintained. Osteophyte formation and facet joint hypertrophy. Subcutaneous emphysema in the soft tissues in the posterior neck with overlying skin artie. Procedure Note Yanet Gann MD - 10/31/2021 EXAMINATION: XR CERVICAL SPINE 2 OR 3 VIEWS CLINICAL HISTORY: s/p C5-6 PCDF Include swimmers view TECHNIQUE: 3 view cervical spine COMPARISON: CT cervical spine 08/18/2021. FINDINGS: 6 cervical vertebral bodies are clearly visualized. Posterior cervicalfusion hardware spanning C5-6. There is normal frontal and sagittal alignment. Vertebral body heights and intervertebral disc spaces are maintained.Osteophyte formation and facet joint hypertrophy. Subcutaneous emphysema in the soft tissues in the posterior neck withoverlying skin artie. IMPRESSION Baseline radiographic appearance of the cervical spine in patient statuspost C5-6 PCDF without findings to suggest complication. Thank you for letting us participate in the care of this patient. If youare a health care provider and have any questions regarding this report,please contact the number below. For patients who have questions please contactthe health child care associate teacher that requested your imaging first. Electronically signed by: YANET GANN [facility] ([phone]),at 10/31/2021 10:23 AM Campos Schumacher MD IMG DX ORDERABLES * POCT Glucose (10/30/2021 3:17 PM EDT) POC Glucose 103 65 - 199 mg/dL [facility] Comment: Supplemental ranges: <140 mg/dL before meals <180 mg/dL all other times of the day Blood 10/30/2021 3:17 PM EDT 10/30/2021 3:17 PM EDT Campos Schumacher MD POINT OF CARE TEST O RDERABLES [facility] [place] [address] * XR Fluoro No Rad <1Hr - OR Use (10/30/2021 1:30 PM EDT) Narrative Dicom, Auditing User - 10/30/2021 2:07 PM EDT This exam is auto-finalizing. No interpretation was done. Campos Schumacher MD IMG FLUORO ORDERABLE S * POCT Glucose (10/30/2021 8:11 AM EDT) POC Glucose 110 65 - 199 mg/dL [facility] Comment: Supplemental ranges: <140 mg/dL before meals <180 mg/dL all other times of the day Blood 10/30/2021 8:11 AM EDT 10/30/2021 8:11 AM EDT Campos Schumacher MD POINT OF CARE TEST O RDERABLES Performing Organization Address City/State/[facility] Co de Phone Number [facility] [place] [address] documented in this encounter Visit Diagnoses Diagnosis Cervical spinal stenosis Spinal stenosis in cervical region Bradycardia Other specified cardiac dysrhythmias Right leg weakness Other musculoskeletal symptoms referable to limbs Arthrodesis present Arthrodesis status documented in this encounter Admitting Diagnoses Diagnosis Arthrodesis present Arthrodesis status documented in this encounter Administered Medications Inactive Administered Medications - up to 3 most recent administrations Medication Order MAR Action Action Date Dose Rate Site acetaminophen (Tylenol) tablet 1,000 mg 1,000 mg, Oral, EVERY 6 HOURS SCHEDULED, First dose on Tue10/30/21 at 1815, Until Discontinued, Routine Given 11/04/2021 1:24 PM EDT 1,000 mg Given 11/04/2021 5:05 AM EDT 1,000 mg Given 11/03/2021 11:46 PM EDT 1,000 mg albuteroL 90 mcg/actuation inhaler 2 puff 2 puff, Inhalation, EVERY 4 HOURS PRN, Starting on Tue11/02/21 at 1008, Until Tue11/04/21 at 1803, Wheezing, Routine, Is there a contraindication to the patient receiving this medication as a nebulizer? Yes Given 11/04/2021 9:08 AM EDT 2 puffs amLODIPine (Norvasc) tablet 5 mg 5 mg, Oral, DAILY, First dose on 10/31/21 at 0900, Until Discontinued, Routine Given 11/04/2021 9:11 AM EDT 5 mg Given 11/03/2021 9:11 AM EDT 5 mg Given 11/02/2021 9:03 AM EDT 5 mg ARIPiprazole (Abilify) tablet 5 mg 5 mg, Oral, DAILY, First dose on 10/31/21 at 0900, Until Discontinued, Routine Given 11/04/2021 9:09 AM EDT 5 mg Given 11/03/2021 9:44 AM EDT 5 mg Given 11/02/2021 9:08 AM EDT 5 mg atorvastatin (Lipitor) tablet 40 mg 40 mg, Oral, DAILY, First dose on 10/31/21 at 0900, Until Discontinued, Routine Given 11/03/2021 6:01 PM EDT 40 mg Given 11/02/2021 5:49 PM EDT 40 mg Given 11/01/2021 9:02 AM EDT 40 mg bisacodyl EC (Dulcolax) tablet 10 mg 10 mg, Oral, 2 TIMES DAILY PRN, Starting on Tue10/30/21 at 1722, Until Tue11/04/21 at 1803, Constipation, DO NOT CRUSH OR OPEN Administer if no bowel movement within 48 hours to achieve: (1) One bowel movement at least every 48 hours, AND (2) without straining. If multiple PRN bowel medications ordered, start with polyethylene glycol, then lactulose, then oral bisacodyl, then bisacodyl suppository, then magnesium citrate, then tap water enema. Multiple medications may be given concomitantly for constipation., Routine Given 11/04/2021 5:54 AM EDT 10 mg budesonide-formoteroL (Symbicort) 160-4.5 mcg/actuation inhaler 2 Inhalation 2 Inhalation , Inhalation, 2 TIMES DAILY, First dose on 11/02/21 at 1100, Until Discontinued Given 11/04/2021 9:00 AM EDT 2 Inhalation Given 11/03/2021 8:11 PM EDT 2 Inhalation Given 11/03/2021 9:14 AM EDT 2 Inhalation ceFAZolin (Ancef) 1 g vial attached to sodium chloride 0.9% 50 mL Mini-Bag Plus 1 g, Intravenous, EVERY 8 HOURS, 3 doses, First dose on Tue10/30/21 at 2100, Last dose on Tue10/31/21 at 1300, Administer over 30 Minutes, Indication for (Active or Suspected): Prophylaxis New Bag 10/31/2021 1:31 PM EDT 1 g 100 mL/hr New Bag 10/31/2021 5:49 AM EDT 1 g 100 mL/hr New Bag 10/30/2021 8:42 PM EDT 1 g 100 mL/hr clonazePAM (KlonoPIN) tablet 0.5 mg 0.5 mg, Oral, DAILY PRN, Starting on Tue10/30/21 at 1722, Until Tue11/04/21 at 1803, Anxiety, DO NOT SPLIT, CRUSH OR OPEN Regular tablets should be swallowed whole with water. Disintegrating tablets (ODTs) should be placed in mouth; may be swallowed with or without water. May also be dissolved in small volume (~30 mL) of water if going to be administered via feeding tube., Routine Given 11/02/2021 12:28 PM EDT 0.5 mg dextrose 10% infusion 250 mL, at 1,000 mL/hr, Intravenous, EVERY 30 MIN PRN, Starting on Tue10/30/21 at 1722, Until Tue11/04/21 at 1803, For BG 50-70 mg/dL: Oral treatment preferred: If able to drink, give 120 mL Juice or Regular (not diet) soda OR If NPO, give 15 gram glucose 40% oral gel massaged into buccal mucosa OR if unconscious or uncooperative, give 25 gram (250 mL) Dextrose 10% IV over 15 minutes per protocol OR, if no IV access, 1 mg Glucagon IM. For BG less than 50 mg/dL: Oral treatment preferred: If able to drink, give 240 mL Juice or Regular (not diet) soda OR If NPO, give 30 gram glucose 40% oral gel massaged in buccal mucosa OR if unconscious or uncooperative, give 25 gram (250 mL) Dextrose 10% IV over 15 minutes per protocol OR, if no IV access, 1 mg Glucagon IM. Recheck BG in 30 minutes. May repeat juice/soda, gel, dextrose or glucagon once per episode. For persistent hypoglycemia, consider longer-acting treatment for the duration of the active insulin. furosemide (Lasix) (10 mg/mL) injection 20 mg 20 mg, Intravenous, ONCE, 1 dose, On Tu11/03/21 at 0745 Given 11/03/2021 9:09 AM EDT 20 mg gabapentin (Neurontin) capsule 600 mg 600 mg, Oral, 3 TIMES DAILY, First dose on 10/31/21 at 2245, Until Discontinued, Routine Given 11/02/2021 9:03 AM EDT 600 mg Given 11/01/2021 8:23 PM EDT 600 mg Given 11/01/2021 3:58 PM EDT 600 mg gabapentin (Neurontin) capsule 900 mg 900 mg, Oral, 3 TIMES DAILY, First dose (after last modification) on 11/02/21 at 1500, Until Discontinued, Routine Given 11/04/2021 9:09 AM EDT 900 mg Given 11/03/2021 8:10 PM EDT 900 mg Given 11/03/2021 3:11 PM EDT 900 mg glucagon (Glucagen) (1 mg/mL) injection solution 1 mg 1 mg, Intramuscular, EVERY 30 MIN PRN, Starting on Tue10/30/21 at 1722, Until Tue11/04/21 at 1803, Low blood sugar, For BG 50-70 mg/dL: Oral treatment preferred: If able to drink, give 120 mL Juice or Regular (not diet) soda OR If NPO, give 15 gram glucose 40% oral gel massaged into buccal mucosa OR if unconscious or uncooperative, give 25 gram (250 mL) Dextrose 10% IV over 15 minutes per protocol OR, if no IV access, 1 mg Glucagon IM. For BG less than 50 mg/dL: Oral treatment preferred: If able to drink, give 240 mL Juice or Regular (not diet) soda OR If NPO, give 30 gram glucose 40% oral gel massaged in buccal mucosa OR if unconscious or uncooperative, give 25 gram (250 mL) Dextrose 10% IV over 15 minutes per protocol OR, if no IV access, 1 mg Glucagon IM. Recheck BG in 30 minutes. May repeat juice/soda, gel, dextrose or glucagon once per episode. For persistent hypoglycemia, consider longer-acting treatment for the duration of the active insulin., Routine glucose (GLUTOSE) 40% oral geL 15-30 g, Buccal, EVERY 30 MIN PRN, Starting on Tue10/30/21 at 1722, Until Tue11/04/21 at 1803, Low blood sugar, For BG 50-70 mg/dL: Oral treatment preferred: If able to drink, give 120 mL Juice or Regular (not diet) soda OR If NPO, give 15 gram glucose 40% oral gel massaged into buccal mucosa OR if unconscious or uncooperative, give 25 gram (250 mL) Dextrose 10% IV over 15 minutes per protocol OR, if no IV access, 1 mg Glucagon IM. For BG less than 50 mg/dL: Oral treatment preferred: If able to drink, give 240 mL Juice or Regular (not diet) soda OR If NPO, give 30 gram glucose 40% oral gel massaged in buccal mucosa OR if unconscious or uncooperative, give 25 gram (250 mL) Dextrose 10% IV over 15 minutes per protocol OR, if no IV access, 1 mg Glucagon IM. Recheck BG in 30 minutes. May repeat juice/soda, gel, dextrose or glucagon once per episode. For persistent hypoglycemia, consider longer-acting treatment for the duration of the active insulin. 1 tube contains 15 grams of glucose (net weight of tube = 37.5 grams., Routine heparin (porcine) (5,000 units/1 mL) subcutaneous injection 5,000 Units 5,000 Units, Subcutaneous, EVERY 12 HOURS SCHEDULED (2 times per day), First dose on Tue11/01/21 at 0930, Until Discontinued, Routine Given 11/04/2021 9:16 AM EDT 5,000 Units Given 11/03/2021 8:12 PM EDT 5,000 Units Given 11/03/2021 9:12 AM EDT 5,000 Units HYDROmorphone (Dilaudid) (2 mg/mL) multi-dose injection solution 0.4 mg 0.4 mg, Intravenous, EVERY 10 MIN PRN, Starting on Tue10/30/21 at 1428, Until Tue10/30/21 at 1720, Pain, For Mild to Moderate Pain (1-5 out of 10), Hold for respiratory rate less than 10 per minute. Maximum dose 4 mg over one hour including administrations in the OR. If multiple pain medications are ordered, start with HYDROmorphone or morphine and use fentaNYL for breakthrough pain, PACU Recovery, Routine Given 10/30/2021 4:20 PM EDT 0.4 mg Given 10/30/2021 4:02 PM EDT 0.4 mg Given 10/30/2021 3:00 PM EDT 0.4 mg HYDROmorphone (Dilaudid) tablet 2 mg 2 mg, Oral, EVERY 4 HOURS PRN, Starting on Tue10/30/21 at 1431, Until 10/31/21 at 1408, Pain, for mild pain (1-3), May give an additional 2 mg once if pain not relieved in 30-60 minutes., Routine Given 10/30/2021 11:30 PM EDT 2 mg HYDROmorphone (Dilaudid) tablet 4 mg 4 mg, Oral, EVERY 4 HOURS PRN, Starting on Tue10/30/21 at 1431, Until 10/31/21 at 1408, Pain, for moderate pain (4-6), May give an additional 2 mg once if pain not relieved in 30-60 minutes., Routine Given 10/31/2021 8:43 AM EDT 4 mg HYDROmorphone (Dilaudid) tablet 6 mg 6 mg, Oral, EVERY 4 HOURS PRN, Starting on Tue10/30/21 at 1431, Until 10/31/21 at 1408, Pain, for severe pain (7-10), May give an additional 2 mg once if pain not relieved in 30-60 minutes., Routine Given 10/30/2021 5:30 PM EDT 6 mg insulin lispro (HumaLOG;Admelog) (100 unit/mL) subcutaneous injection vial 1-4 Units 1-4 Units, Subcutaneous, EVERY 4 HOURS SCHEDULED, First dose on Tue10/30/21 at 2000, Until Discontinued, CORRECTION BOLUS [1-4 Units] Sensitive Sliding Scale (BG in mg/dL): Correction factor 40 (1 unit of insulin is expected to drop the glucose 40 mg/dL) BG 160 - 200 Give 1 unit BG 201 - 240 Give 2 units BG 241 - 280 Give 3 units BG greater than 280, give 4 units and recheck BG in 2 hours. - If recheck BG is LESS than 280, give no insulin and resume schedule - If recheck BG is GREATER than 280, give 4 units and repeat BG in 2 hours (no more than 3 times) & call for new insulin orders. DO NOT hold if NPO, unless specifically directed to do so by written order. Per Blood Glucose Monitoring Policy, re-check a BG of > 240 mg/dL in 2 hours., Routine Given 11/03/2021 3:17 PM EDT 2 Units Given 11/03/2021 12:13 PM EDT 4 Units iohexoL (Omnipaque) (350 mg/mL) solution 0-200 mL 0-200 mL, Intravenous, ONCE PRN, 1 dose, Starting on 11/01/21 at 2204, Until 11/01/21 at 2231, Per Protocol, Warning Vesicant/Irritant Medication , Radiology Contrast, Routine Given 11/01/2021 10:31 PM EDT 65 mLs isosorbide mononitrate CR (Imdur) tablet 30 mg 30 mg, Oral, DAILY, First dose on 10/31/21 at 0900, Until Discontinued, DO NOT CRUSH OR OPEN, Routine Given 11/04/2021 9:10 AM EDT 30 mg Given 11/03/2021 9:10 AM EDT 30 mg Given 11/02/2021 9:04 AM EDT 30 mg lamoTRIgine (LaMICtal) tablet 200 mg 200 mg, Oral, DAILY, First dose on 10/31/21 at 0900, Until Discontinued, Routine Given 11/03/2021 8:08 PM EDT 200 mg Given 11/02/2021 8:26 PM EDT 200 mg Given 11/01/2021 9:03 AM EDT 200 mg levothyroxine (Synthroid) tablet 50 mcg 50 mcg, Oral, DAILY, First dose on 10/31/21 at 0600, Until Discontinued, Routine Given 11/04/2021 5:05 AM EDT 50 mcg Given 11/03/2021 5:34 AM EDT 50 mcg Given 11/02/2021 6:37 AM EDT 50 mcg lidocaine (Lidoderm) 5% patch 3 patch 3 patch, Transdermal, EVERY 24 HOURS, First dose on Tue10/30/21 at 1815, Until Discontinued, Apply patch(es) for 12 hours, and then remove for 12 hours, Routine Patch Applied 11/03/2021 6:02 PM EDT 3 patches 05- Back Upper (Left) Patch Applied 11/02/2021 5:49 PM EDT 3 patches 08- Back Lower (Right) Patch Applied 11/01/2021 5:36 PM EDT 3 patches 20-Other (document in comment section) lidocaine (Lidoderm) topical patch REMOVAL Transdermal, EVERY 24 HOURS, First dose on 10/31/21 at 0200, Until Discontinued, Remove lidocaine 5 %(700 mg/patch) patch lidocaine (Xylocaine) 1% (10 mg/mL) injection 50 mg 50 mg (5 mL), Subcutaneous, ONCE, 1 dose, On 10/31/21 at 1215, Routine Given 10/31/2021 11:40 AM EDT 50 mg lisinopriL (Zestril) tablet 40 mg 40 mg, Oral, DAILY, First dose on 10/31/21 at 0900, Until Discontinued, Routine Given 11/04/2021 9:11 AM EDT 40 mg Given 11/03/2021 9:10 AM EDT 40 mg Given 11/02/2021 9:03 AM EDT 40 mg magnesium citrate oral liquid 296 mL 296 mL, Oral, DAILY PRN, Starting on Tue10/30/21 at 1722, Until Tue11/04/21 at 1803, Constipation, Administer if no bowel movement within 48 hrs to achieve 1) one bowel movement at least every 48 hrs and 2) without straining. If multiple PRN bowel medications ordered, start with polyethylene glycol, then lactulose, then oral bisacodyl, then bisacodyl suppository, then magnesium citrate, then tap water enema. Multiple medications may be given concomitantly for constipation. May repeat times 1 in 4 hours., Routine magnesium citrate oral liquid 296 mL 296 mL, Per G Tube, DAILY PRN, Starting on Tue10/30/21 at 1722, Until Tue11/04/21 at 1803, Constipation, Administer if no bowel movement within 48 hrs to achieve 1) one bowel movement at least every 48 hrs and 2) without straining. If multiple PRN bowel medications ordered, start with polyethylene glycol, then lactulose, then oral bisacodyl, then bisacodyl suppository, then magnesium citrate, then tap water enema. Multiple medications may be given concomitantly for constipation. May repeat times 1 in 4 hours., Routine magnesium sulfate 2 g in sterile water 50 mL infusion 2 g, Intravenous, ONCE, 1 dose, On 10/31/21 at 1415, Administer over 120 Minutes New Bag 10/31/2021 2:34 PM EDT 2 g 25 mL/hr methocarbamoL (Robaxin) tablet 500 mg 500 mg, Oral, EVERY 6 HOURS, 8 doses, First dose on Tue10/30/21 at 1815, Last dose on Tue11/01/21 at 1215, Routine Given 11/01/2021 6:07 AM EDT 500 mg Given 11/01/2021 1:00 AM EDT 500 mg Given 10/31/2021 6:21 PM EDT 500 mg metoprolol succinate XL (Toprol-XL) tablet 12.5 mg 12.5 mg, Oral, DAILY, First dose on 10/31/21 at 0900, Until Discontinued, DO NOT CRUSH OR OPEN, Routine Given 11/04/2021 9:12 AM EDT 12.5 mg Given 11/03/2021 9:11 AM EDT 12.5 mg Given 11/02/2021 9:03 AM EDT 12.5 mg ondansetron (pf) (Zofran) (2 mg/mL) injection 4-8 mg 4-8 mg, Intravenous, EVERY 8 HOURS PRN, Starting on Tue10/30/21 at 1722, Until 11/04/21 at 1803, Nausea, If multiple antiemetics are ordered, use ondansetron first, prochlorperazine second, and metaclopramide third. Start with 4mg and if ineffective in 30 minutes, give an additional 4mg ondansetron (Zofran) tablet 4-8 mg 4-8 mg, Oral, EVERY 8 HOURS PRN, Starting on Tue10/30/21 at 1722, Until Tue11/04/21 at 1803, Nausea, Vomiting, If multiple antiemetics are ordered, use ondansetron first, prochlorperazine second, and metaclopramide third. PO Preferred. If patient unable to take PO, may give IV if ordered. Start with 4mg and if ineffective in 45 minutes, give an additional 4mg, Routine pantoprazole EC (Protonix) tablet 40 mg 40 mg, Oral, DAILY, First dose on Tue10/31/21 at 0900, Until Discontinued Given 11/04/2021 9:10 AM EDT 40 mg Given 11/03/2021 9:11 AM EDT 40 mg Given 11/02/2021 9:02 AM EDT 40 mg prazosin (Minipress) capsule 6 mg 6 mg, Oral, NIGHTLY, First dose on Tue10/30/21 at 2100, Until Discontinued, Routine Given 11/03/2021 8:09 PM EDT 6 mg Given 11/02/2021 8:15 PM EDT 6 mg Given 11/01/2021 8:28 PM EDT 6 mg prochlorperazine (Compazine) (5 mg/mL) injection 10 mg 10 mg, Intravenous, EVERY 6 HOURS PRN, Starting on Tue10/30/21 at 1722, Until Tue11/04/21 at 1803, Nausea, Vomiting, If multiple antiemetics are ordered, use ondansetron first, prochlorperazine second, and metaclopramide third., Routine prochlorperazine (Compazine) tablet 10 mg 10 mg, Oral, EVERY 6 HOURS PRN, Starting on Tue10/30/21 at 1722, Until Tue11/04/21 at 1803, Nausea, Vomiting, If multiple antiemetics are ordered, use ondansetron first, prochlorperazine second, and metaclopramide third. PO Preferred. If patient unable to take PO, may give IV if ordered., Routine senna-docusate (Pericolace) 8.6-50 mg per tablet 2 tablet 2 tablet, Oral, 2 TIMES DAILY, First dose on Tue10/30/21 at 2100, Until Discontinued, Routine Given 11/04/2021 9:11 AM EDT 2 tablets Given 11/03/2021 8:07 PM EDT 2 tablets Given 11/03/2021 9:10 AM EDT 2 tablets sertraline (Zoloft) tablet 200 mg 200 mg, Oral, DAILY, First dose (after last modification) on Tue10/30/21 at 2100, Until Discontinued, Routine Given 11/03/2021 8:08 PM EDT 200 mg Given 11/02/2021 8:18 PM EDT 200 mg Given 11/01/2021 8:24 PM EDT 200 mg sodium chloride 0.9 % (flush) (BD PosiFlush Normal Saline 0.9) flush 5 mL 5 mL, Intravenous, 2 TIMES DAILY, First dose on Tue11/03/21 at 2100, Until Discontinued, Recovery (Recovery-Hospital Unit), Routine Given 11/04/2021 9:16 AM EDT 5 mLs Given 11/03/2021 8:12 PM EDT 5 mLs tiotropium bromide (Spiriva Respimat) 2.5 mcg/actuation inhaler 2 puff 2 puff, Inhalation, 2 TIMES DAILY, First dose on Tue11/02/21 at 1100, Until Discontinued, Must be primed prior to first administration, Routine Given 11/04/2021 9:00 AM EDT 2 puffs Given 11/03/2021 8:11 PM EDT 2 puffs Given 11/03/2021 9:14 AM EDT 2 puffs tiZANidine (Zanaflex) tablet 4 mg 4 mg, Oral, EVERY 6 HOURS PRN, Starting on Tue10/30/21 at 1722, Until Tue11/01/21 at 1235, Muscle spasms, Routine Given 10/31/2021 10:03 PM EDT 4 mg Given 10/31/2021 8:57 AM EDT 4 mg tolterodine (Detrol) tablet 2 mg 2 mg, Oral, 2 TIMES DAILY, First dose on Tue10/31/21 at 2330, Until Discontinued, Routine Given 11/01/2021 9:17 AM EDT 2 mg Given 10/31/2021 11:00 PM EDT 2 mg traMADoL (Ultram) tablet 100 mg 100 mg, Oral, EVERY 6 HOURS PRN, Starting on Tue11/02/21 at 1221, Until Tue11/04/21 at 1803, Pain, Routine Given 11/04/2021 10:58 AM EDT 100 mg Given 11/04/2021 5:54 AM EDT 100 mg Given 11/03/2021 10:18 AM EDT 100 mg traMADoL (Ultram) tablet 50 mg 50 mg, Oral, EVERY 6 HOURS PRN, Starting on 10/31/21 at 1407, Until 11/02/21 at 1221, Pain, Routine Given 11/02/2021 9:04 AM EDT 50 mg Given 11/01/2021 9:05 AM EDT 50 mg Given 10/31/2021 4:38 PM EDT 50 mg documented in this encounter Active and Recently Administered Medications Times are shown in EDT. Scheduled Medication Order 11/02/2021 11/03/2021 11/04/2021 acetaminophen (Tylenol) tablet 1,000 mg 1,000 mg, Oral, EVERY 6 HOURS SCHEDULED, First dose on Tue10/30/21 at 1815, Until Discontinued, Routine 0100 (Given - Provider: Earlene Lee RN)0636 (Given - Provider: Earlene Lee RN)1158 (Given - Provider: Sarah Hanson RN)1749 (Given - Provider: Sarah Hanson RN) 0000 (Not Given - Provider: David Byers RN - Reason: Patient/family refused)0534 (Given - Provider: David Byers RN)1213 (Given - Provider: Ana Damian)1801 (Given - Provider: Ana Damian)2346 (Given - Provider: David Byers RN) 0505 (Given - Provider: David Byers RN)1324 (Given - Provider: Kanu Roberts, FABIANA) amLODIPine (Norvasc) tablet 5 mg 5 mg, Oral, DAILY, First dose on 10/31/21 at 0900, Until Discontinued, Routine 0903 (Given - Provider: Sarah Hanson RN) 0911 (Given - Provider: Ana Damian) 0911 (Given - Provider: Kanu Roberts, FABIANA) ARIPiprazole (Abilify) tablet 5 mg 5 mg, Oral, DAILY, First dose on 10/31/21 at 0900, Until Discontinued, Routine 0908 (Given - Provider: Sarah Hanson RN) 0944 (Given - Provider: Kanu Roberts RN) 0909 (Given - Provider: Kanu Roberts, FABIANA) atorvastatin (Lipitor) tablet 40 mg 40 mg, Oral, DAILY, First dose on Sat 22 at 0900, Until Discontinued, Routine 1749 (Given - Provider: Sarah Hanson RN) 1801 (Given - Provider: Ana Damian) budesonide-formoteroL (Symbicort) 160-4.5 mcg/actuation inhaler 2 Inhalation 2 Inhalation , Inhalation, 2 TIMES DAILY, First dose on Tue11/02/21 at 1100, Until Discontinued 1156 (Given - Provider: Sarah Hanson RN)2020 (Given - Provider: David Byers RN) 0914 (Given - Provider: Ana Damian)2010 (Given - Provider: David Byers, FABIANA) 0900 (Given - Provider: Kanu Roberts, FABIANA) furosemide (Lasix) (10 mg/mL) injection 20 mg (COMPLETED) 20 mg, Intravenous, ONCE, 1 dose, On Tue11/03/21 at 0745 0909 (Given - Provider: Ana Damian) gabapentin (Neurontin) capsule 600 mg (CANCELED) 600 mg, Oral, 3 TIMES DAILY, First dose on Tue10/31/21 at 2245, Until Discontinued, Routine 0903 (Given - Provider: Sarah Hanson RN) gabapentin (Neurontin) capsule 900 mg 900 mg, Oral, 3 TIMES DAILY, First dose (after last modification) on Tue11/02/21 at 1500, Until Discontinued, Routine 1505 (Given - Provider: Sarah Hanson RN)2016 (Given - Provider: David Byers RN) 0910 (Given - Provider: Ana Damian)1511 (Given - Provider: Ana Damian)2009 (Given - Provider: David Byers, FABIANA) 0909 (Given - Provider: Kanu Roberts RN)1500 (Due) heparin (porcine) (5,000 units/1 mL) subcutaneous injection 5,000 Units 5,000 Units, Subcutaneous, EVERY 12 HOURS SCHEDULED (2 times per day), First dose on Tue11/01/21 at 0930, Until Discontinued, Routine 0908 (Given - Provider: Sarah Hanson RN)2021 (Given - Provider: David Byers RN) 0912 (Given - Provider: Ana Damian)2011 (Given - Provider: David Byers RN) 0916 (Given - Provider: Kanu Roberts RN) insulin lispro (HumaLOG;Admelog) (100 unit/mL) subcutaneous injection vial 1-4 Units(Linked Group 1) 1-4 Units, Subcutaneous, EVERY 4 HOURS SCHEDULED, First dose on Tue10/30/21 at 2000, Until Discontinued, CORRECTION BOLUS [1-4 Units] Sensitive Sliding Scale (BG in mg/dL): Correction factor 40 (1 unit of insulin is expected to drop the glucose 40 mg/dL) BG 160 - 200 Give 1 unit BG 201 - 240 Give 2 units BG 241 - 280 Give 3 units BG greater than 280, give 4 units and recheck BG in 2 hours. - If recheck BG is LESS than 280, give no insulin and resume schedule - If recheck BG is GREATER than 280, give 4 units and repeat BG in 2 hours (no more than 3 times) & call for new insulin orders. DO NOT hold if NPO, unless specifically directed to do so by written order. Per Blood Glucose Monitoring Policy, re-check a BG of > 240 mg/dL in 2 hours., Routine 0000 (Not Given - Provider: Earlene Lee RN - Reason: Order parameters not met)0400 (Not Given - Provider: Earlene Lee RN - Reason: Patient/family refused)0800 (Not Given - Provider: Pham Vasquez RN - Reason: Contraindicated)1200 (Not Given - Provider: Sarah Hanson RN - Reason: Order parameters not met)1600 (Not Given - Provider: Pham Vasquez RN - Reason: Contraindicated)2000 (Not Given - Provider: David Byers RN - Reason: Order parameters not met - Comment: BG 116) 0000 (Not Given - Provider: David Byers RN - Reason: Order parameters not met - Comment: BG 100)0400 (Not Given - Provider: David Byers RN - Reason: Order parameters not met - Comment: BG 103)0800 (Not Given - Provider: Kanu Roberts RN - Reason: Order parameters not met - Comment: POC Glucose of 110 mg/dL)1213 (Given - Provider: Ana Damian)1517 (Given - Provider: Ana Damian)2000 (Not Given - Provider: David Byers RN - Reason: Order parameters not met - Comment: BG 95) 0000 (Not Given - Provider: David Byers RN - Reason: Order parameters not met - Comment: BG 98)0400 (Not Given - Provider: David Byers RN - Reason: Order parameters not met - Comment: BG 85)0800 (Not Given - Provider: Kanu Roberts RN - Reason: Order parameters not met - Comment: POC Glucose of 133)1200 (Not Given - Provider: Kanu Roberts RN - Reason: Order parameters not met - Comment: POC glucose of 97 mg/dL)1600 (Due) isosorbide mononitrate CR (Imdur) tablet 30 mg 30 mg, Oral, DAILY, First dose on 10/31/21 at 0900, Until Discontinued, DO NOT CRUSH OR OPEN, Routine 09 (Given - Provider: Sarah Hanson RN) 0910 (Given - Provider: Ana Damian) 0910 (Given - Provider: Kanu Roberts RN) lamoTRIgine (LaMICtal) tablet 200 mg 200 mg, Oral, DAILY, First dose on 10/31/21 at 0900, Until Discontinued, Routine 2025 (Given - Provider: David Byers RN) 2007 (Given - Provider: David Byers RN) levothyroxine (Synthroid) tablet 50 mcg 50 mcg, Oral, DAILY, First dose on 10/31/21 at 0600, Until Discontinued, Routine 06 (Given - Provider: Earlene Lee RN) 0534 (Given - Provider: David Byers RN) 0505 (Given - Provider: David Byers RN) lidocaine (Lidoderm) 5% patch 3 patch(Linked Group 2) 3 patch, Transdermal, EVERY 24 HOURS, First dose on Tue10/30/21 at 1815, Until Discontinued, Apply patch(es) for 12 hours, and then remove for 12 hours, Routine 174 (Patch Applied - Provider: Sarah Hanson RN) 180 (Patch Applied - Provider: Ana Damian - Comment: upper shoulders and back midline) lidocaine (Lidoderm) topical patch REMOVAL(Linked Group 2) Transdermal, EVERY 24 HOURS, First dose on 10/31/21 at 0200, Until Discontinued, Remove lidocaine 5 %(700 mg/patch) patch 0200 (Patch Removed - Provider: Earlene Lee RN) 0240 (Patch Removed - Provider: David Byers, FABIANA) 0200 (Patch Removed - Provider: David Byers, FABIANA) lisinopriL (Zestril) tablet 40 mg 40 mg, Oral, DAILY, First dose on 10/31/21 at 0900, Until Discontinued, Routine 902 (Given - Provider: Sarah Hanson RN) 09 (Given - Provider: Ana Damian) 09 (Given - Provider: Kanu Roberts, FABIANA) metoprolol succinate XL (Toprol-XL) tablet 12.5 mg 12.5 mg, Oral, DAILY, First dose on 10/31/21 at 0900, Until Discontinued, DO NOT CRUSH OR OPEN, Routine 902 (Given - Provider: Sarah Hanson RN) 09 (Given - Provider: Ana Damian) 911 (Given - Provider: Kanu Roberts, FABIANA) pantoprazole EC (Protonix) tablet 40 mg 40 mg, Oral, DAILY, First dose on 10/31/21 at 0900, Until Discontinued 901 (Given - Provider: Sarah Hanson RN) 09 (Given - Provider: Ana Damian) 0910 (Given - Provider: Kanu Roberts, FABIANA) prazosin (Minipress) capsule 6 mg 6 mg, Oral, NIGHTLY, First dose on Tue10/30/21 at 2100, Until Discontinued, Routine 2014 (Given - Provider: David Byers, FABIANA) 2008 (Given - Provider: David Byers, FABIANA) senna-docusate (Pericolace) 8.6-50 mg per tablet 2 tablet 2 tablet, Oral, 2 TIMES DAILY, First dose on Tue10/30/21 at 2100, Until Discontinued, Routine 903 (Given - Provider: Sarah Hanson RN)2015 (Given - Provider: David ByersFABIANA) 0910 (Given - Provider: Ana Damian)2006 (Given - Provider: David Byers RN) 09 (Given - Provider: Kanu Roberts RN) sertraline (Zoloft) tablet 200 mg 200 mg, Oral, DAILY, First dose (after last modification) on Tue10/30/21 at 2100, Until Discontinued, Routine 2017 (Given - Provider: David Byers RN) 2007 (Given - Provider: David Byers RN) sodium chloride 0.9 % (flush) (BD PosiFlush Normal Saline 0.9) flush 5 mL 5 mL, Intravenous, 2 TIMES DAILY, First dose on Tue11/03/21 at 2100, Until Discontinued, Recovery ([facility]), Routine 2011 (Given - Provider: David Byers RN) 915 (Given - Provider: Kanu Roberts RN) tiotropium bromide (Spiriva Respimat) 2.5 mcg/actuation inhaler 2 puff 2 puff, Inhalation, 2 TIMES DAILY, First dose on Tue11/02/21 at 1100, Until Discontinued, Must be primed prior to first administration, Routine 1156 (Given - Provider: Sarah Hanson RN)2020 (Given - Provider: David Byers RN) 0914 (Given - Provider: Ana Damian)2010 (Given - Provider: David Byers RN) 09 (Given - Provider: Kanu Roberts RN) PRN Medication Order 11/02/2021 11/03/2021 11/04/2021 albuteroL 90 mcg/actuation inhaler 2 puff 2 puff, Inhalation, EVERY 4 HOURS PRN, Starting on Tue11/02/21 at 1008, Until Tue11/04/21 at 1803, Wheezing, Routine, Is there a contraindication to the patient receiving this medication as a nebulizer? Yes 907 (Given - Provider: Kanu Roberts RN) bisacodyL (Dulcolax) suppository 10 mg 10 mg, Rectal, DAILY PRN, Starting on Tue10/30/21 at 1722, Until Tue11/04/21 at 1803, Constipation, Administer if needed per patient's routine or if no bowel movement within 48 hours to achieve: (1) One bowel movement every 48 hours, AND (2) Without straining. If multiple PRN bowel medications ordered, start with magnesium hydroxide, then bisacodyl. Multiple medications may be given concomitantly for constipation., Routine bisacodyl EC (Dulcolax) tablet 10 mg 10 mg, Oral, 2 TIMES DAILY PRN, Starting on Tue10/30/21 at 1722, Until Tue11/04/21 at 1803, Constipation, DO NOT CRUSH OR OPEN Administer if no bowel movement within 48 hours to achieve: (1) One bowel movement at least every 48 hours, AND (2) without straining. If multiple PRN bowel medications ordered, start with polyethylene glycol, then lactulose, then oral bisacodyl, then bisacodyl suppository, then magnesium citrate, then tap water enema. Multiple medications may be given concomitantly for constipation., Routine 0554 (Given - Provider: David Byers RN) clonazePAM (KlonoPIN) tablet 0.5 mg 0.5 mg, Oral, DAILY PRN, Starting on Tue10/30/21 at 1722, Until Tue11/04/21 at 1803, Anxiety, DO NOT SPLIT, CRUSH OR OPEN Regular tablets should be swallowed whole with water. Disintegrating tablets (ODTs) should be placed in mouth; may be swallowed with or without water. May also be dissolved in small volume (~30 mL) of water if going to be administered via feeding tube., Routine 1228 (Given - Provider: Sarah Hasnon RN) dextrose 10% infusion(Linked Group 3) 250 mL, at 1,000 mL/hr, Intravenous, EVERY 30 MIN PRN, Starting on Tue10/30/21 at 1722, Until Tue11/04/21 at 1803, For BG 50-70 mg/dL: Oral treatment preferred: If able to drink, give 120 mL Juice or Regular (not diet) soda OR If NPO, give 15 gram glucose 40% oral gel massaged into buccal mucosa OR if unconscious or uncooperative, give 25 gram (250 mL) Dextrose 10% IV over 15 minutes per protocol OR, if no IV access, 1 mg Glucagon IM. For BG less than 50 mg/dL: Oral treatment preferred: If able to drink, give 240 mL Juice or Regular (not diet) soda OR If NPO, give 30 gram glucose 40% oral gel massaged in buccal mucosa OR if unconscious or uncooperative, give 25 gram (250 mL) Dextrose 10% IV over 15 minutes per protocol OR, if no IV access, 1 mg Glucagon IM. Recheck BG in 30 minutes. May repeat juice/soda, gel, dextrose or glucagon once per episode. For persistent hypoglycemia, consider longer-acting treatment for the duration of the active insulin. glucagon (Glucagen) (1 mg/mL) injection solution 1 mg(Linked Group 3) 1 mg, Intramuscular, EVERY 30 MIN PRN, Starting on Tue10/30/21 at 1722, Until Tue11/04/21 at 1803, Low blood sugar, For BG 50-70 mg/dL: Oral treatment preferred: If able to drink, give 120 mL Juice or Regular (not diet) soda OR If NPO, give 15 gram glucose 40% oral gel massaged into buccal mucosa OR if unconscious or uncooperative, give 25 gram (250 mL) Dextrose 10% IV over 15 minutes per protocol OR, if no IV access, 1 mg Glucagon IM. For BG less than 50 mg/dL: Oral treatment preferred: If able to drink, give 240 mL Juice or Regular (not diet) soda OR If NPO, give 30 gram glucose 40% oral gel massaged in buccal mucosa OR if unconscious or uncooperative, give 25 gram (250 mL) Dextrose 10% IV over 15 minutes per protocol OR, if no IV access, 1 mg Glucagon IM. Recheck BG in 30 minutes. May repeat juice/soda, gel, dextrose or glucagon once per episode. For persistent hypoglycemia, consider longer-acting treatment for the duration of the active insulin., Routine glucose (GLUTOSE) 40% oral geL(Linked Group 3) 15-30 g, Buccal, EVERY 30 MIN PRN, Starting on Tue10/30/21 at 1722, Until Tue11/04/21 at 1803, Low blood sugar, For BG 50-70 mg/dL: Oral treatment preferred: If able to drink, give 120 mL Juice or Regular (not diet) soda OR If NPO, give 15 gram glucose 40% oral gel massaged into buccal mucosa OR if unconscious or uncooperative, give 25 gram (250 mL) Dextrose 10% IV over 15 minutes per protocol OR, if no IV access, 1 mg Glucagon IM. For BG less than 50 mg/dL: Oral treatment preferred: If able to drink, give 240 mL Juice or Regular (not diet) soda OR If NPO, give 30 gram glucose 40% oral gel massaged in buccal mucosa OR if unconscious or uncooperative, give 25 gram (250 mL) Dextrose 10% IV over 15 minutes per protocol OR, if no IV access, 1 mg Glucagon IM. Recheck BG in 30 minutes. May repeat juice/soda, gel, dextrose or glucagon once per episode. For persistent hypoglycemia, consider longer-acting treatment for the duration of the active insulin. 1 tube contains 15 grams of glucose (net weight of tube = 37.5 grams., Routine hydrALAZINE (Apresoline) (20 mg/mL) injection 10 mg 10 mg, Intravenous, EVERY 1 HOUR PRN, Starting on Tue10/30/21 at 1722, Until Tue11/04/21 at 1803, High Blood Pressure, Target systolic blood pressure (SBP) less than 160 mmHg. Administer 10 mg IV . May repeat once in 15 minutes if SBP greater than target BP (caution if HR greater than 90). Use if labetalol ineffective after 1 hour., Routine ipratropium-albuteroL (Duoneb) 0.5 mg-3 mg(2.5 mg base)/3 mL nebulizer solution 3 mL 3 mL, Nebulization, EVERY 4 HOURS PRN, Starting on Tue10/30/21 at 1722, Until Tue11/04/21 at 1803, Wheezing, Routine labetaloL (Normodyne) (5 mg/mL) injection solution 10-20 mg 10-20 mg, Intravenous, EVERY 1 HOUR PRN, Starting on Tue10/30/21 at 1722, Until Tue11/04/21 at 1803, High Blood Pressure, Target systolic blood pressure (SBP) less than 160 mmHg. Administer 10 mg over 2 minutes. May repeat every 15 minutes if SBP remains above goal. If inadequate effect with second 10 mg dose then increase dose to 20 mg for subsequent dosing every 15 minutes. Dose not to exceed 300 mg per day. Hold if pulse is less than 50 beats per minute., Routine lidocaine (Xylocaine) 1% (10 mg/mL) injection 3 mg 3 mg (0.3 mL), Subcutaneous, ONCE PRN, 1 dose, Starting on Tue11/03/21 at 1536, Until Tue11/04/21 at 1803, for discomfort with PIV insertion, Recovery (Recovery[facility]ospital Unit), Routine magnesium citrate oral liquid 296 mL(Linked Group 4) 296 mL, Oral, DAILY PRN, Starting on Tue10/30/21 at 1722, Until Tue11/04/21 at 1803, Constipation, Administer if no bowel movement within 48 hrs to achieve 1) one bowel movement at least every 48 hrs and 2) without straining. If multiple PRN bowel medications ordered, start with polyethylene glycol, then lactulose, then oral bisacodyl, then bisacodyl suppository, then magnesium citrate, then tap water enema. Multiple medications may be given concomitantly for constipation. May repeat times 1 in 4 hours., Routine magnesium citrate oral liquid 296 mL(Linked Group 4) 296 mL, Per G Tube, DAILY PRN, Starting on Tue10/30/21 at 1722, Until Tue11/04/21 at 1803, Constipation, Administer if no bowel movement within 48 hrs to achieve 1) one bowel movement at least every 48 hrs and 2) without straining. If multiple PRN bowel medications ordered, start with polyethylene glycol, then lactulose, then oral bisacodyl, then bisacodyl suppository, then magnesium citrate, then tap water enema. Multiple medications may be given concomitantly for constipation. May repeat times 1 in 4 hours., Routine magnesium hydroxide (Milk of Magnesia) (240 mg/mL) oral liquid 10 mL 10 mL, Oral, DAILY PRN, Starting on Tue10/30/21 at 1722, Until Tue11/04/21 at 1803, Constipation, Administer if needed per patient's routine or if no bowel movement within 48 hours to achieve: (1) One bowel movement every 48 hours, AND (2) Without straining. If multiple PRN bowel medications ordered, start with magnesium hydroxide, then bisacodyl. Multiple medications may be given concomitantly for constipation., Routine nicotine polacrilex (Nicorette) gum 2 mg 2 mg, Buccal, EVERY 4 HOURS PRN, Starting on Tue10/30/21 at 1722, Until Tue11/04/21 at 1803, Smoking cessation, may alternate with lozenges, Chew gum slowly. Do not swallow. Maximum of 48 mg/day., Routine nitroGLYcerin (Nitrostat) disintegrating tablet 0.4 mg 0.4 mg, Sublingual, EVERY 5 MIN PRN, Starting on Tue10/30/21 at 1722, Until Tue11/04/21 at 1803, Chest pain, SL nitroglycerin may be repeated every 5 minutes as needed up to 3 doses, Routine ondansetron (pf) (Zofran) (2 mg/mL) injection 4-8 mg(Linked Group 5) 4-8 mg, Intravenous, EVERY 8 HOURS PRN, Starting on Tue10/30/21 at 1722, Until Tue11/04/21 at 1803, Nausea, If multiple antiemetics are ordered, use ondansetron first, prochlorperazine second, and metaclopramide third. Start with 4mg and if ineffective in 30 minutes, give an additional 4mg ondansetron (Zofran) tablet 4-8 mg(Linked Group 5) 4-8 mg, Oral, EVERY 8 HOURS PRN, Starting on Tue10/30/21 at 1722, Until Tue11/04/21 at 1803, Nausea, Vomiting, If multiple antiemetics are ordered, use ondansetron first, prochlorperazine second, and metaclopramide third. PO Preferred. If patient unable to take PO, may give IV if ordered. Start with 4mg and if ineffective in 45 minutes, give an additional 4mg, Routine polyethylene glycoL (Miralax) packet 17 g 17 g, Oral, DAILY PRN, Starting on Tue10/30/21 at 1722, Until Tue11/04/21 at 1803, Constipation, Administer if no bowel movement within 48 hours to achieve: (1) One bowel movement at least every 48 hours, AND (2) without straining. If multiple PRN bowel medications ordered, start with polyethylene glycol, then lactulose, then oral bisacodyl, then bisacodyl suppository, then magnesium citrate, then tap water enema. Multiple medications may be given concomitantly for constipation., Routine prochlorperazine (Compazine) (5 mg/mL) injection 10 mg(Linked Group 6) 10 mg, Intravenous, EVERY 6 HOURS PRN, Starting on Tue10/30/21 at 1722, Until Tue11/04/21 at 1803, Nausea, Vomiting, If multiple antiemetics are ordered, use ondansetron first, prochlorperazine second, and metaclopramide third., Routine prochlorperazine (Compazine) tablet 10 mg(Linked Group 6) 10 mg, Oral, EVERY 6 HOURS PRN, Starting on Tue10/30/21 at 1722, Until Tue11/04/21 at 1803, Nausea, Vomiting, If multiple antiemetics are ordered, use ondansetron first, prochlorperazine second, and metaclopramide third. PO Preferred. If patient unable to take PO, may give IV if ordered., Routine sodium chloride 0.9 % (flush) (BD PosiFlush Normal Saline 0.9) flush 5-20 mL 5-20 mL, Intravenous, EVERY 1 MIN PRN, Starting on Tue11/03/21 at 1536, Until Tue11/04/21 at 1803, flush, Flush pertains to all indwelling lines. Flush per protocol found in the job aid using the link provided on this medication record., Recovery ([facility] Unit), Routine traMADoL (Ultram) tablet 100 mg 100 mg, Oral, EVERY 6 HOURS PRN, Starting on Tue11/02/21 at 1221, Until Tue11/04/21 at 1803, Pain, Routine 2018 (Given - Provider: David Byers RN) 1018 (Given - Provider: Meena Gramajo RN) 0554 (Given - Provider: David Byers, FABIANA)1058 (Given - Provider: Kanu Roberts RN) traMADoL (Ultram) tablet 50 mg (CANCELED) 50 mg, Oral, EVERY 6 HOURS PRN, Starting on 10/31/21 at 1407, Until 11/02/21 at 1221, Pain, Routine 0904 (Given - Provider: Sarah Hanson RN) Linked Groups Order Group 1: POCT Fingerstick Glucose (CANCELED) Routine, EVERY 4 HOURS, First occurrence on Tue10/30/21 at 1725, Until Specified, Consider choosing EVERY 4 HOURS as frequency for: - Type 1 Diabetes - At least 24 hours after coming off an insulin drip - At least 24 hours after admission for DKA - Hypoglycemia unawareness - Patients who are otherwise unstable Select the same frequency for the correction bolus insulin order And insulin lispro (HumaLOG;Admelog) (100 unit/mL) subcutaneous injection vial 1-4 UnitsJump to med 1-4 Units, Subcutaneous, EVERY 4 HOURS SCHEDULED, First dose on Tue10/30/21 at 2000, Until Discontinued, CORRECTION BOLUS [1-4 Units] Sensitive Sliding Scale (BG in mg/dL): Correction factor 40 (1 unit of insulin is expected to drop the glucose 40 mg/dL) BG 160 - 200 Give 1 unit BG 201 - 240 Give 2 units BG 241 - 280 Give 3 units BG greater than 280, give 4 units and recheck BG in 2 hours. - If recheck BG is LESS than 280, give no insulin and resume schedule - If recheck BG is GREATER than 280, give 4 units and repeat BG in 2 hours (no more than 3 times) & call for new insulin orders. DO NOT hold if NPO, unless specifically directed to do so by written order. Per Blood Glucose Monitoring Policy, re-check a BG of > 240 mg/dL in 2 hours., Routine Group 2: lidocaine (Lidoderm) 5% patch 3 patchJump to med 3 patch, Transdermal, EVERY 24 HOURS, First dose on Tue10/30/21 at 1815, Until Discontinued, Apply patch(es) for 12 hours, and then remove for 12 hours, Routine And lidocaine (Lidoderm) topical patch REMOVALJump to med Transdermal, EVERY 24 HOURS, First dose on Tue10/31/21 at 0200, Until Discontinued, Remove lidocaine 5 %(700 mg/patch) patch Group 3: glucose (GLUTOSE) 40% oral geLJump to med 15-30 g, Buccal, EVERY 30 MIN PRN, Starting on Tue10/30/21 at 1722, Until Tue11/04/21 at 1803, Low blood sugar, For BG 50-70 mg/dL: Oral treatment preferred: If able to drink, give 120 mL Juice or Regular (not diet) soda OR If NPO, give 15 gram glucose 40% oral gel massaged into buccal mucosa OR if unconscious or uncooperative, give 25 gram (250 mL) Dextrose 10% IV over 15 minutes per protocol OR, if no IV access, 1 mg Glucagon IM. For BG less than 50 mg/dL: Oral treatment preferred: If able to drink, give 240 mL Juice or Regular (not diet) soda OR If NPO, give 30 gram glucose 40% oral gel massaged in buccal mucosa OR if unconscious or uncooperative, give 25 gram (250 mL) Dextrose 10% IV over 15 minutes per protocol OR, if no IV access, 1 mg Glucagon IM. Recheck BG in 30 minutes. May repeat juice/soda, gel, dextrose or glucagon once per episode. For persistent hypoglycemia, consider longer- acting treatment for the duration of the active insulin. 1 tube contains 15 grams of glucose (net weight of tube = 37.5 grams., Routine Or dextrose 10% infusionJump to med 250 mL, at 1,000 mL/hr, Intravenous, EVERY 30 MIN PRN, Starting on Tue10/30/21 at 1722, Until Tue11/04/21 at 1803, For BG 50-70 mg/dL: Oral treatment preferred: If able to drink, give 120 mL Juice or Regular (not diet) soda OR If NPO, give 15 gram glucose 40% oral gel massaged into buccal mucosa OR if unconscious or uncooperative, give 25 gram (250 mL) Dextrose 10% IV over 15 minutes per protocol OR, if no IV access, 1 mg Glucagon IM. For BG less than 50 mg/dL: Oral treatment preferred: If able to drink, give 240 mL Juice or Regular (not diet) soda OR If NPO, give 30 gram glucose 40% oral gel massaged in buccal mucosa OR if unconscious or uncooperative, give 25 gram (250 mL) Dextrose 10% IV over 15 minutes per protocol OR, if no IV access, 1 mg Glucagon IM. Recheck BG in 30 minutes. May repeat juice/soda, gel, dextrose or glucagon once per episode. For persistent hypoglycemia, consider longer-acting treatment for the duration of the active insulin. Or glucagon (Glucagen) (1 mg/mL) injection solution 1 mgJump to med 1 mg, Intramuscular, EVERY 30 MIN PRN, Starting on Tue10/30/21 at 1722, Until Tue11/04/21 at 1803, Low blood sugar, For BG 50-70 mg/dL: Oral treatment preferred: If able to drink, give 120 mL Juice or Regular (not diet) soda OR If NPO, give 15 gram glucose 40% oral gel massaged into buccal mucosa OR if unconscious or uncooperative, give 25 gram (250 mL) Dextrose 10% IV over 15 minutes per protocol OR, if no IV access, 1 mg Glucagon IM. For BG less than 50 mg/dL: Oral treatment preferred: If able to drink, give 240 mL Juice or Regular (not diet) soda OR If NPO, give 30 gram glucose 40% oral gel massaged in buccal mucosa OR if unconscious or uncooperative, give 25 gram (250 mL) Dextrose 10% IV over 15 minutes per protocol OR, if no IV access, 1 mg Glucagon IM. Recheck BG in 30 minutes. May repeat juice/soda, gel, dextrose or glucagon once per episode. For persistent hypoglycemia, consider longer-acting treatment for the duration of the active insulin., Routine Group 4: magnesium citrate oral liquid 296 mLJump to med 296 mL, Oral, DAILY PRN, Starting on Tue10/30/21 at 1722, Until Tue11/04/21 at 1803, Constipation, Administer if no bowel movement within 48 hrs to achieve 1) one bowel movement at least every 48 hrs and 2) without straining. If multiple PRN bowel medications ordered, start with polyethylene glycol, then lactulose, then oral bisacodyl, then bisacodyl suppository, then magnesium citrate, then tap water enema. Multiple medications may be given concomitantly for constipation. May repeat times 1 in 4 hours., Routine Or magnesium citrate oral liquid 296 mLJump to med 296 mL, Per G Tube, DAILY PRN, Starting on Tue10/30/21 at 1722, Until Tue11/04/21 at 1803, Constipation, Administer if no bowel movement within 48 hrs to achieve 1) one bowel movement at least every 48 hrs and 2) without straining. If multiple PRN bowel medications ordered, start with polyethylene glycol, then lactulose, then oral bisacodyl, then bisacodyl suppository, then magnesium citrate, then tap water enema. Multiple medications may be given concomitantly for constipation. May repeat times 1 in 4 hours., Routine Group 5: ondansetron (Zofran) tablet 4-8 mgJump to med 4-8 mg, Oral, EVERY 8 HOURS PRN, Starting on Tue10/30/21 at 1722, Until Tue11/04/21 at 1803, Nausea, Vomiting, If multiple antiemetics are ordered, use ondansetron first, prochlorperazine second, and metaclopramide third. PO Preferred. If patient unable to take PO, may give IV if ordered. Start with 4mg and if ineffective in 45 minutes, give an additional 4mg, Routine Or ondansetron (pf) (Zofran) (2 mg/mL) injection 4-8 mgJump to med 4-8 mg, Intravenous, EVERY 8 HOURS PRN, Starting on Tue10/30/21 at 1722, Until Tue11/04/21 at 1803, Nausea, If multiple antiemetics are ordered, use ondansetron first, prochlorperazine second, and metaclopramide third. Start with 4mg and if ineffective in 30 minutes, give an additional 4mg Group 6: prochlorperazine (Compazine) tablet 10 mgJump to med 10 mg, Oral, EVERY 6 HOURS PRN, Starting on Tue10/30/21 at 1722, Until Tue11/04/21 at 1803, Nausea, Vomiting, If multiple antiemetics are ordered, use ondansetron first, prochlorperazine second, and metaclopramide third. PO Preferred. If patient unable to take PO, may give IV if ordered., Routine Or prochlorperazine (Compazine) (5 mg/mL) injection 10 mgJump to med 10 mg, Intravenous, EVERY 6 HOURS PRN, Starting on Tue10/30/21 at 1722, Until Tue11/04/21 at 1803, Nausea, Vomiting, If multiple antiemetics are ordered, use ondansetron first, prochlorperazine second, and metaclopramide third., Routine documented in this encounter Care Teams Offshoring Manager Relationship Specialty Start Date End Date Hoang Castellanos, SAM [address] [place] [address] PCP - General Family Medicine 03/12/20 documented as of this encounter
--- OUTSIDE RECORDS SUMMARY | 2024-02-22 00:48 | XMS_ITS | Encounter Summary ---
[place] [address] Care Team Providers Care Radio Script Writer Name Role Phone Hoang aCstellanos APRN Primary Care Provider Reason for Visit [...] Expiration Date Visits Re quested Visits Authorized [id number] 1 1 Encounter Details Date Type Department Care Team (Late st Contact Info) Description 10/30/2021 8:35 AM EDT - 10/30/2021 1:12 PM EDT [place] [address] Campos Schumacher MD [facility] [place] [address] [address] @ARTHRODESIS, POSTERIOR CERVICAL SPINE (WRVU 17.4) Social History Tobacco Use Types Packs/Day Years [...] Sign Reading Time Taken Comments Blood Pressure 146/80 10/30/2021 7:53 AM EDT Pulse 56 10/30/2021 7:53 AM EDT Temperature 36.6 ??C (97.9 ??F) 10/30/2021 7:53 AM ED T Respiratory Rate 18 10/30/2021 7:53 AM EDT Oxygen Saturation 98% 10/30/2021 7:53 AM EDT Inhaled Oxygen Concentration - - [...] the last few months. telephone consent by [facility]: Jeannie Rico presented 10/30/2021 for elective [...] who have questions please contact the health career discovery teacher that requested your imaging first. Head [...] who have questions please contact the health career discovery teacher that requested your imaging first. Electronically signed by: Janie Aguilar MD, [facility] ([phone]), at 11/02/2021 12:47 AM XR Chest PA [...] who have questions please contact the health career discovery teacher that requested your imaging first. Electronically signed by: Tahira Medrano MD, [facility] ([phone]), at 11/02/2021 11:12 AM Pending Studies and Lab Data: na Discharge Condition: Stable Discharge to: rehab Future Appointments and Orders Future Appointments and Orders Future Appointments Provider Department Dept Phone 12/03/2021 10:30 AM Campos Schumacher MD Neurosurgery at [facility] Arrive at: [facility] [phone] 12/22/2021 9:45 AM Michael Espinoza MD Endocrinology at [facility] Arrive at: [facility] 3A [phone] Future Orders Complete By Expires XR Cervical Spine 2 or 3 Views [[id number] Custom] 12/04/2021 (Approximate) 01/04/2022 Process Instructions: Scheduling Instructions: Questions: Where will study be performed?: [facility] Radiology Portable exam?: Reason for exam and [...] lancets 30 gauge Misc 1 each by [facility].(Non-Drug; Combo Route) route daily. 1 each Quantity: [...] anticoagulant, and non-steroidal anti-inflammatory (NSAIDs) drugs. Common aeqj-hzp-twdfhrz medications which should be avoided include Aspirin, [...] to pass. These medications can be obtained efnm-zbi-vmethbg and their use is recommended on an [...] retention Constipation not relieved by diet and/or qcbr-fyq-etorupg stool softeners and laxatives Nausea/vomiting (upset stomach) [...] tobacco dependence clinics in these locations: ??? [facility]: [place] ??? [facility] Tobacco Treatment [place], [place] Other Programs at [facility] in [place] ??? Living Free of Tobacco support group: For anyone who has quit tobacco or is considering quitting tobacco. [facility] Health Education Center, Level 4, [place] 3:30 to 4:30 p.m. on the tuesday of every month. Other Programs in the Area ??? [facility] in [place] One-on-one counseling, hypnosis. Cassidy Jamison ??? [facility] in [place], [place] One-on-one counseling, QuitLine, classes. Lay Ferris ??? [facility]: One-on-one counseling. All ages and incomes eligible. Sakshi Camacho [facility]: Classes & support group. Behzad Schwab ??? [facility] in [place], [place] One-on-one counseling, QuitLine, classes, hypnosis therapy. Ruth Corey Information about Quitting Smoking and Tobacco See our Quitting Smoking - Information and Materials page ([email or web address]- [email or web address]/[email or web address]/information_on_quitting_smoking.html) for educational information about quitting smoking, downloadable smoking cessation materials, podcasts, websites, helplines, and more. FOLLOW UP PLAN: Incision: [x] Your artie need to be removed on 11/13/2021. You can get them removed by coming into our office, PCP office, or at rehab. a Appointments: Please follow up in the Neurosurgery Clinic in 4-6 weeks. Please call the Neurosurgery Office at [phone] if you do not receive a scheduled appointment within two weeks. Your follow-up appointment will be with: [x] Dr. Schumacher Follow-up Imaging: [x] XR - Cervical HOW TO REACH NEUROSURGERY Office Hours: Tuesday through Tuesday, 8am-5pm. Call . On weekends or after office hours: Call [phone] and ask the base draw operator to page the Neurosurgery Resident/Advanced Practice Provider physical education specialist. IMPORTANT PHONE NUMBERS: Outpatient Nurse (Karen Belle) Inpatient Nurses Neurosurgical Resident/Advanced Practice Provider On-Call (after 5pm or before 8am) Neurosurgery offices (Tuesday through Tuesday between 8am-5pm): Adult Neurosurgery Dr. Remy Green Pediatric Neurosurgery Dr. Cassidy Funes Advanced Practice Providers Prudence Heaton, Nurse Practitioner (outpatient) Cheryl Patel, Physician 3D Modeler (inpatient) Mabel Metcalf, Nurse Practitioner (inpatient) Brandi Chiu, Physician 3D Modeler (inpatient) Brandi Benavides, Physician 3D Modeler (inpatient) Karen Barksdale, Nurse Practitioner (outpatient: vascular) Amanda Mendez, Physician 3D Modeler (outpatient: spine) David Herring, Nurse Practitioner (inpatient/outpatient) Freddy Dolan, Physician 3D Modeler (outpatient) Margo Almodovar, Nurse Practitioner (outpatient: neuro-oncology) HOW TO REACH NEUROSURGERY Office Hours (Tuesday through Tuesday 8am-5pm): Call On weekends or after office hours (after 5pm or before 8am): Call [phone] and ask the base draw operator to page the Neurosurgery Resident/Advanced Practice Provider physical education specialist. *Your surgeon may not be call center consultant (especially after office hours or on the weekend) so be ready totell about yourself and your surgery when you call. Neurosurgery Providers Adult Neurosurgery Dr. Remy Green Pediatric Neurosurgery Dr. Cassidy Funes Advanced Practice Providers Prudence Heaton, Nurse Practitioner (outpatient) Cheryl Patel, Physician 3D Modeler (inpatient) Mabel Metcalf, Nurse Practitioner (inpatient) Brandi Chiu, Physician 3D Modeler (inpatient) Dereck Salgado, Nurse Practitioner (outpatient: pediatric) Brandi Benavides, Physician 3D Modeler (inpatient) Karen Barksdale, Nurse Practitioner (outpatient: vascular) Amanda Mendez, Physician 3D Modeler (outpatient: spine) David Herring, Nurse Practitioner (inpatient/outpatient) Freddy Dolan, Physician 3D Modeler (outpatient) Margo Almodovar, Nurse Practitioner (outpatient: neuro-oncology) [...] anticoagulant, and non-steroidal anti-inflammatory (NSAIDs) drugs. Common ajav-mwp-fzqnlfz medications which should be avoided include Aspirin, [...] to pass. These medications can be obtained gxuj-ded-ywokttz and their use is recommended on an [...] retention Constipation not relieved by diet and/or duph-wig-pnjjgkw stool softeners and laxatives Nausea/vomiting (upset stomach) [...] have tobacco dependence clinics in these locations: [facility]: [place] [facility] Tobacco Treatment [facility], [place] Other Programs at [facility] in [place] Living Free of Tobacco support group: For anyone who has quit tobacco or is considering quitting tobacco. [facility] Health Education Center, Level 4, [place] 3:30 to 4:30 p.m. on the tuesday of every month. Other Programs in the Area [facility] in [place] One-on-one counseling, hypnosis. Cassidy Jamison [facility] in [place], [place] One-on-one counseling, QuitLine, classes. Lay Ferris [facility]: One-on-one counseling. All ages and incomes eligible. Sakshi Camacho [facility]: Classes & support group. Behzad Schwab [facility] in [place], [place] One-on-one counseling, QuitLine, classes, hypnosis therapy. Ruth Corey Information about Quitting Smoking and Tobacco See our Quitting Smoking - Information and Materials page ([email or web address]- information/[email or web address]/information_on_quitting_smoking.html) for educational information about quitting smoking, downloadable smoking cessation materials, podcasts, websites, helplines, and more. FOLLOW UP PLAN: Incision: [x] Your artie need to be removed on 11/13/2021. You can get them removed by coming into our office, PCP office, or at rehab. a Appointments: Please follow up in the Neurosurgery Clinic in 4-6 weeks. Please call the Neurosurgery Office at [phone] if you do not receive a scheduled appointment within two weeks. Your follow-up appointment will be with: [x] Dr. Schumacher Follow-up Imaging: [x] XR - Cervical HOW TO REACH NEUROSURGERY Office Hours: Tuesday through Tuesday, 8am-5pm. Call . On weekends or after office hours: Call [phone] and ask the base draw operator to page the Neurosurgery Resident/Advanced Practice Provider physical education specialist. IMPORTANT PHONE NUMBERS: Outpatient Nurse (Karen Belle) Inpatient Nurses Neurosurgical Resident/Advanced Practice Provider On-Call (after 5pm or before 8am) Neurosurgery offices (Tuesday through Tuesday between 8am-5pm): Adult Neurosurgery Dr. Remy Green Pediatric Neurosurgery Dr. Cassidy Funes Advanced Practice Providers Prudence Heaton, Nurse Practitioner (outpatient) Cheryl Patel, Physician 3D Modeler (inpatient) Mabel Metcalf, Nurse Practitioner (inpatient) Brandi Chiu, Physician 3D Modeler (inpatient) Brandi Benavides, Physician 3D Modeler (inpatient) Karen Barksdale, Nurse Practitioner (outpatient: vascular) Amanda Mendez, Physician 3D Modeler (outpatient: spine) David Herring, Nurse Practitioner (inpatient/outpatient) Freddy Dolan, Physician 3D Modeler (outpatient) Margo Almodovar, Nurse Practitioner (outpatient: neuro-oncology) [...] Sustained Release 24 hrIndications:Coronary artery disease involving [place] coronary artery of [place] heart without angina pectoris TAKE ONE (1) TABLET BY MOUTH EVERY DAY 28 tablet 11 02/17/2021 01/18/2022 Ventolin HFA 90 mcg/actuation HFA Aerosol InhalerIndications:Vehicle 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 All belongings sent with patient. 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 Discharge instructions, medications, and follow-up appointments reviewed, education provided on 1300, all questions answered. Report called to [phone] at 1300. Patient instructed to call with concerns. * Parvin Barksdale RN - 11/04/2021 11:44 AM EDT Physician Certification Statement for Non-Emergency Ambulance Services Section I - General Information Jeannie Rico 1960 Medicare Number: [id number] Transport Date: 11/04/21 (PCS is valid for round trips on this date and for all repetitive trips in the 60-day range as noted below.) Origin: [facility] Destination: [facility], [place] Is the patient's stay covered under [...] van (i.e. seated during transport, without director medical economics or monitoring?): No 4) In addition to [...] form was signed by Registered Nurse * Parvin Barksdale RN - 11/04/2021 11:43 AM EDT Ambulance transportation is medically necessary at discharge related to s/p PCDF for Arthrodesis, pain, unable to tolerate seated position for time of transport. I have discussed Medicare/Private Insurance reimbursement guidelines for ambulance transport. Patient/family(name of individual)pt and SO verbalize understanding of their potential financial obligation and agree with ambulance transport. Parvin Barksdale MSN-Ed, RN ACM glass presser Office of Care Management Pager #[phone] * Kanu Roberts RN - 11/04/2021 11:23 [...] AM EDTSummary: Discharge Note Office of Care Management/Sliver Lapper Patient Name: Jeannie Rico : 1960 Patient has been offered an acute rehab bed at [facility] for today, 11/04/21 [facility] arranged for a 1530 transport. Ambulance will need: Medicare ambulance form completed and signed (MD or Supply Teacher RN/AFTER SCHOOL COUNSELOR) Copy of patient demographics [place] Out of Hospital DNR/DNI order, if active No MD to MD report necessary Please call Nursing Report to , ask for process manufacturing engineer. Info to accompany patient: Copies of Medication Administration Records and IV sheets for past 10 days. Plan: Sliver Lapper will be available to the patient and Supply Teacher-RN and/or Social Workerfor further assistance. Patient will be discharged to: [facility] Jeremy Pearson, Sliver Lapper * Amelie Howell OTA - 11/04/2021 9:37 [...] ?? Safety awareness: impulsive ?? Vision:corrective lenses senior project engineer ?? minimal vision R eye ?? Strength [...] Therapy Rehabilitation Department SRUTHI Tomas Pager # [phone] Patient status, treatment interventions, and goals discussed [...] Procedure Component Value Units Date/Time COVID-19 PCR [[id number]] Collected: 11/02/21 1615 Lab Status: Final result [...] using the Simplexa COVID-19 Direct Assay by [employer] as authorized by the FDA issued Emergency [...] Department of Pathology and Laboratory Medicine at [facility], certified under the Clinical Laboratory Improvement [...] fact sheets at the following FDA website: https://www.fda.gov/medical-devices/juvoyfcpoyv-pouzdra-5337-hdkzb-25-bmdnpwurj- rcu-wkwwmbaoxycboq-uywzepe-devices/ucalv-sariqlsblww-kghh SARS-CoV-2 Source ASPHALT SURFACE HEATER OPERATOR Swab COVID-19 PCR [[id number]] Collected: 10/27/21 1132 Lab Status: Final result [...] diagnosis of COVID-19 is performed using the [employer] m SARS-CoV-2 Assay as authorized by the FDA Emergency Use Authorization (EUA). This EUA assay is intended for In-vitro Diagnostic (IVD) use with respiratory specimens such as nasopharyngeal swabs collected from individuals during the acute phase of infection. This assay is performed based on the instructions for use provided by [employer] and additional guidance provided by CDC and FDA. Testing is performed in the Clinical Genomics and Advanced Technology Laboratory within the Department of Pathology and Laboratory Medicine at [facility], certified under the Clinical Laboratory Improvement [...] fact sheets at the following FDA website: https://www.fda.gov/medical-devices/sqiptlpjzhq-bpexqjs-2137-iycov-95-nrfrfhqwg- fsy-qjraekqqclmihv-bgmtekq-devices/bnwwg-xqnpyewlvhz-fqtf SARS-Cov-2 RNA Source ASPHALT SURFACE HEATER OPERATOR Swab Diagnostic Studies: Results for orders placed [...] who have questions please contact the health career discovery teacher that requested your imaging first. Head [...] who have questions please contact the health career discovery teacher that requested your imaging first. Electronically signed by: Janie Aguilar MD, [facility] ([phone]), at 11/02/2021 12:47 AM XR Chest PA [...] who have questions please contact the health career discovery teacher that requested your imaging first. Electronically signed by: Tahira Medrano MD, [facility] ([phone]), at 11/02/2021 11:12 AM Inpatient Medications: Scheduled [...] changes occur or new questions arise, page [phone]. Case discussed with Dr. Adal Trinidad. 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 Hemodynamics [...] RNSARIKA.Patient reported she would go to the [facility] facility.She reported that the [facility] staff had told her they would be checking on her in the home while she was at Rehab which has made the decision easier. Kimberly Lee AFTER SCHOOL COUNSELOR,[facility] [id number] * Kanu Roberts RN [...] is home, and has home PT and group home paraprofessional services. Bathroom Set-up: tub shower with seat [...] Billing Code: functional mobility ANDRES NINO PT Pager:[phone] Physical Therapy Inpatient Rehabilitation Department * Kimberly [...] John King and her Casemanager Jodie at [facility] out of [place].Her team has been callingto check in on her while she has been Hospitalized.Patient reports she is on MH medications and hasnot had any side effects from the medications that she can not tolerate at this time.Patient ststesher has MH struggles also and [facility] will be checking on him while she is I rehab for a couple of weeks. Kimberly DIOR,[facility] [id number] * Amelie Howell, FRANCISCO - 11/03/2021 9:47 AM EDT Occupational Therapy [...] 96% on 3L NC. Pt endorsing pain 8-10/01, PRN meds given. Ativan PRN given for [...] ?? Safety awareness: impulsive ?? Vision:corrective lenses senior project engineer ?? minimal vision R eye ?? Strength and ROM: ?? Pt strength and ROM in RUE improved 4/5 strength with report of improvement in sensation ?? Endurance:fair ?? Vitals: pt reported feeling lightheaded following sup>sit, BP taken: 109/68. ?? Pt oxygen found not to be turned on, this editorial writer placed pt on 2 L. VSS [...] Occupational Therapy Rehabilitation Department Amelie NEGRO Pager #[phone] Patient status, treatment interventions, and goals discussed [...] Procedure Component Value Units Date/Time COVID-19 PCR [[id number]] Collected: 11/02/21 1615 Lab Status: Final result [...] using the Simplexa COVID-19 Direct Assay by [employer] as authorized by the FDA issued Emergency [...] Department of Pathology and Laboratory Medicine at [facility], certified under the Clinical Laboratory Improvement [...] fact sheets at the following FDA website: https://www.fda.gov/medical-devices/mntupfrpzlo-aujirvb-7887-tqdku-07-ojbmsoglt- dun-honmuehknaxpez-linybyo-devices/sywuz-qtfkskigikj-sbij SARS-CoV-2 Source ASPHALT SURFACE HEATER OPERATOR Swab COVID-19 PCR [[id number]] Collected: 10/27/21 1132 Lab Status: Final result Specimen: Nasopharyngeal Swab Updated: 10/28/21 08 SARS-CoV-2 RNA Not Detected Comment: This result [...] diagnosis of COVID-19 is performed using the [employer] m SARS-CoV-2 Assay as authorized by the FDA Emergency Use Authorization (EUA). This EUA assay is intended for In-vitro Diagnostic (IVD) use with respiratory specimens such as nasopharyngeal swabs collected from individuals during the acute phase of infection. This assay is performed based on the instructions for use provided by [employer] and additional guidance provided by CDC and FDA. Testing is performed in the Clinical Inspro and Advanced Technology Laboratory within the Department of Pathology and Laboratory Medicine at [facility], certified under the Clinical Laboratory Improvement [...] fact sheets at the following FDA website: https://www.fda.gov/medical-devices/btuhxtjdgob-pzlgjvc-8882-mwrbi-86-naxehuxva- yvo-grqfsfnxmsdmvh-hqkigrb-devices/ltckh-ntzakanxcoz-ujia SARS-Cov-2 RNA Source ASPHALT SURFACE HEATER OPERATOR Swab Diagnostic Studies: Results for orders placed [...] who have questions please contact the health career discovery teacher that requested your imaging first. Head [...] who have questions please contact the health career discovery teacher that requested your imaging first. Electronically signed by: Janie Aguilar MD, [facility] ([phone]), at 11/02/2021 12:47 AM XR Chest PA [...] who have questions please contact the health career discovery teacher that requested your imaging first. Electronically signed by: Tahira Medrano MD, [facility] ([phone]), at 11/02/2021 11:12 AM Inpatient Medications: Scheduled [...] is home, and has home PT and group home paraprofessional services. Bathroom Set-up: tub shower with seat [...] therapy and demonstrated the following: Pain: Reports 6/10 neck and shoulder pain pre and post [...] for assistance with all mobility. Assessment: Jeannie Rcio was seen today for physical therapy treatment [...] Billing Code: functional mobility ANDRES NINO, PT Pager:[phone] Physical Therapy Inpatient Rehabilitation Department * Parvin Barksdale RN - 11/02/2021 10:28 AM EDT Based on discussions with the multi-disciplinary healthcare team, the patient would benefit from acute/swing level of care at discharge. ?? I have met with the Patient to discuss discharge planning needs. I have provided the [facility], Office of Care Management letter from the Vessel Crew Member pertaining to rehab referrals. I have also provided a letter describing our affiliations within the [facility] and educatedthem about their right to choose where referrals are. ?? Provided patient with [facility] Star Quality Rating for SNF, LTAC [...] requested referrals to: 1. [facility] [address] [place] [address] ?? [address] [facility] Acute Rehabilitation and Sub-Acute (Swing) Rehab Levels of Care [address] [place] [address] ?? 3. [facility] (Swing) ([facility]) [address] [place] [address] ?? PHONE: [phone] FAX: [phone] ?? Expected date of discharge: 11/03/21 Has patient received the COVID vaccine: Yes Booster: Yes Does patient have COVID vaccine card: Yes Copy of Card Obtained: No Note routed to Sliver Lapper who will communicate referrals to facilities and provide any required information. Parvin Barksdale MSN-Ed, RN ACM glass presser Office of Care Management Pager #[phone] * Earlene Lee RN - 11/02/2021 12:14 AM EDT Patient desated to 70s on 3l NC o2, on 4L o2 NC, sat is 94%. Provider aware. Patient had a ct head and neck as her RLE was 2/5 strength at bedtime, and family was concerned about patient's shorter responses and confusion, though was AOx4 for this editorial writer's check of orientationat bedtime. Provider aware. [...] CERVICAL SPINE (WRVU 17.4) performed by Campos Schumacehr MD at [facility] MAIN OR PRO DUDLEY W/O FACETEC FORAMOT/DSKC 1/ VRT SEG, CERVICAL N/A 10/30/2021 LAMINECTOMY, CX W/EXPLOR , W/O FACETECTOMY, 1 OR 2 SEGMENTS (WRVU 17.61) performed by Campos Schumacher MD at [facility] MAIN OR PRO POSTERIOR SEGMENTAL INSTRUMENTATION 3-6 VRT SEG N/A 10/30/2021 POST SPINAL INSTRUMENTATION, 3-6 VERTEBRA, NON SEGMENTAL (WRVU 12.56) performed by Campos Schumacher MD at [facility] MAIN OR PRO UPPER GI ENDOSCOPY, BIOPSY N/A 12/03/2015 EGD WITH BIOPSY performed by Ken Sanders MD at [facility] ENDOSCOPY PRO UPPER GI ENDOSCOPY, BIOPSY N/A 09/19/2018 UPPER GASTROINTESTINAL ENDOSCOPY,WITH BIOPSY SINGLE OR MULTIPLE (WRVU 2.49) performed by Tyron Mercado MD at [facility] ENDOSCOPY TONSILLECTOMY UPPER GI ENDOSCOPY, EXAM 12/04/2010 UPPER GI ENDOSCOPY performed by DEE WRIGHT at [facility] ENDOSCOPY Social History: Home set-up: Pt lives with he in an apt with 3 cats. is home, and has home PT and group home paraprofessional services. Bathroom Set-up: tub shower with seat [...] 54 Billing Code: miles NINO, PT Pager: [phone] Physical Therapy Inpatient Rehabilitation Department * Pham [...] 17.4) performed by Campos Schumacher MD at [facility] MAIN OR ??? PRO DUDLEY W/O FACETEC FORAMOT/DSKC 1/ VRT SEG, CERVICAL N/A 10/30/2021 LAMINECTOMY, CX W/EXPLOR , W/O FACETECTOMY, 1 OR 2 SEGMENTS (WRVU 17.61) performed by Campos Schumacher MD at [facility] MAIN OR ??? PRO POSTERIOR SEGMENTAL INSTRUMENTATION 3-6 VRT SEG N/A 10/30/2021 POST SPINAL INSTRUMENTATION, 3-6 VERTEBRA, NON SEGMENTAL (WRVU 12.56) performed by Campos Schumacher MD at [facility] MAIN OR ??? PRO UPPER GI ENDOSCOPY, BIOPSY N/A 12/03/2015 EGD WITH BIOPSY performed by Ken Sanders MD at [facility] ENDOSCOPY ??? PRO UPPER GI ENDOSCOPY, BIOPSY N/A 09/19/2018 UPPER GASTROINTESTINAL ENDOSCOPY,WITH BIOPSY SINGLE OR MULTIPLE (WRVU 2.49) performed by Tyron Mercado MD at [facility] ENDOSCOPY ??? TONSILLECTOMY ??? UPPER GI ENDOSCOPY, EXAM 12/04/2010 UPPER GI ENDOSCOPY performed by DEE WRIGHT at [facility] ENDOSCOPY Social History: Patient lives with her [...] deficits Vision & Perception: ?? corrective lenses senior project engineer ?? minimal vision R eye Communication: WFL [...] and measurable assessment of functional outcome. Pager: [phone] Pham Shannon OT 11/01/2021 Occupational Therapy Rehabilitation [...] eval as able. Kenna Diane, PT Pager: [phone] Physical Therapy Inpatient Rehabilitation Department * Moe [...] for tomorrow to see as appropriate. Pager: [phone] MOE CANTRELL OT 10/31/2021 Occupational Therapy Rehabilitation [...] BIOPSY performed by Ken Sanders MD at [facility] ENDOSCOPY ??? PRO UPPER GI ENDOSCOPY, BIOPSY N/A 09/19/2018 UPPER GASTROINTESTINAL ENDOSCOPY,WITH BIOPSY SINGLE OR MULTIPLE (WRVU 2.49) performed by Tyron Mercado MD at [facility] ENDOSCOPY ??? TONSILLECTOMY ??? UPPER GI ENDOSCOPY, EXAM 12/04/2010 UPPER GI ENDOSCOPY performed by DEE WRIGHT at [facility] ENDOSCOPY Medications: No current facility-administered medications on [...] 30 tablet 1 ??? Miscellaneous Medical Supply [facility] 1 walker on wheels with seat 1 each 0 ??? ibuprofen (Advil;Motrin) 800 mg Tablet Take 1 tablet by mouth every 8 hours as needed for Pain.90 tablet 5 ??? sertraline (ZOLOFT) 100 mg Tablet Take 2 tablets by mouth 2 times daily. ??? multivitamin (THERAGRAN) Tablet Take 1 tablet by mouth daily. ??? lancets 30 gauge Misc 1 each by [facility].(Non-Drug; Combo Route) route daily. 100 each 3 [...] - 10/30/2021 12:50 PM EDT NEURODIAGNOSTIC LABORATORY [facility] INTRAOPERATIVE MONITORING REPORT Name: Jeannie Rico : [...] and abductor hallucis brevis recordings. CPT Codes: 67429 (EEG); 39284 (EMG 2 limbs); 28963 (EMG limited x2) 91759 (TOF, 4 nerves); 93978 (upper & lower MEP); 21286 (upper and lower SSEP bilateral); 47101 (IOM, 7 units); 98347 (IOM, 2 units). Intraoperative Neurophysiologic Monitoring was [...] & Follow-up Care: Contact information for follow-up [facility] [address] [facility] [address] Transportation: Wheelchair van/Ambulance? Yes Ambulance transportation is [...] MEDICAID [place] Prescription Coverage: Yes Preferred Pharmacy: [facility] [place] - [place] - [address] [facility] [address] [facility] [address] [facility] [place] [place] [facility] [address] [facility] [address] [facility] [address] This plan was formulated with input from patient, pt and family (please identify family/friend involved if applicable) and team. All are in agreement with plan. Parvin BATEMAN, RN Pager #[phone] * Plan of Care - Sarah Hanson [...] lancets 30 gauge Misc 1 each by [facility].(Non-Drug; Combo Route) route daily. 100 each 3 [...] 17.4) performed by Campos Schumacher MD at [facility] MAIN OR ??? PRO DUDLEY W/O FACETEC FORAMOT/DSKC 07/26 VRT SEG, CERVICAL N/A 10/30/2021 LAMINECTOMY, CX W/EXPLOR , W/O FACETECTOMY, 1 OR 2 SEGMENTS (WRVU 17.61) performed by Campos Schumacher MD at [facility] MAIN OR ??? PRO POSTERIOR SEGMENTAL INSTRUMENTATION 3-6 VRT SEG N/A 10/30/2021 POST SPINAL INSTRUMENTATION, 3-6 VERTEBRA, NON SEGMENTAL (WRVU 12.56) performed by Campos Schumacher MD at [facility] MAIN OR ??? PRO UPPER GI ENDOSCOPY, BIOPSY N/A 12/03/2015 EGD WITH BIOPSY performed by Ken Sanders MD at [facility] ENDOSCOPY ??? PRO UPPER GI ENDOSCOPY, BIOPSY N/A 09/19/2018 UPPER GASTROINTESTINAL ENDOSCOPY,WITH BIOPSY SINGLE OR MULTIPLE (WRVU 2.49) performed by Tyron Mercado MD at [facility] ENDOSCOPY ??? TONSILLECTOMY ??? UPPER GI ENDOSCOPY, EXAM 12/04/2010 UPPER GI ENDOSCOPY performed by DEE WRIGHT at [facility] ENDOSCOPY Family History: Mother: from lung cancer at age 64; COPD, smoker, congestive heart failure Father: HTN, DM, Kidney Cancer, Skin Cancer; from [place] at 76 Maternal Grandmother - at age 35 y/o due to ovarian Social History: Tobacco: not a current smoker; prior 3 packs a day smoker - quit 3 months prior Etoh: none Illicits: uses medical marijuana Living Situation: Lives in [place], [place] Occupation: On disability due to mental [...] who have questions please contact the health career discovery teacher that requested your imaging first. Head [...] who have questions please contact the health career discovery teacher that requested your imaging first. Electronically signed by: Janie Aguilar MD, [facility] ([phone]), at 11/02/2021 12:47 AM XR Chest PA [...] who have questions please contact the health career discovery teacher that requested your imaging first. Electronically signed by: Tahira Medrano MD, [facility] ([phone]), at 11/02/2021 11:12 AM Assessment: Ms. Jeannie [...] MD Internal Medicine, PGY3 DINORA Pager # [phone] Associated attestation - Adal Trinidad MD - [...] MD * Plan of Care - Earlene Lee, RN - 11/01/2021 8:43 PM EDT OUTCOME [...] as documented. * Plan of Care - rIasema Calix RN - 10/31/2021 6:34 PM EDT [...] TBD pending rehab evals and hospital course. AFTER SCHOOL COUNSELOR support for PMH PTSD, bipolar DO and anxiety. Care Management will continue to follow and assist with discharge planning and coordination of care as indicated. Anticipated Date of Discharge: 11/04/2021 Parvin BATEMAN, RN Pager #[phone] * Initial Assessments - Parvin Barksdale RN - 10/31/2021 1:55 PM EDT Office of Care Management Initial Assessment Medical record reviewed. Plan of care and patient status discussed with direct care Registered Nurse and/or Care Team in multidisciplinary rounds. Reason for Hospitalization: spinal surgery Last COVID test: Lab Results Component Value Date COVID19 Not Detected 10/27/2021 [id number] Not Detected 07/03/2020 Present on Admission: ??? Arthrodesis present Hospitalizations Within the Past 30 Days: no previous admission in last 30 days Patient receiving hospital care under IPI- SDP Admission (IP) status. Admission order reviewed. Primary Insurance on file: MEDICARE Secondary Insurance on file:@ Primary care provider on file: Hoang Castellanos, SUPPLY REQUIREMENTS OFFICER [phone] Pharmacy: [facility] [place] - [place], [place] - [address] [facility] [address] [place] [address] [facility] - [place], [place] - [address] [facility] [address] Advance Care Planning: Attempt Cardiopulmonary Resuscitation - Inpatient Received -Advanced Directive: Yes, on file Who is your DPOA-HC?: Sibling Current Functional Ability: Completely Dependent Functional Status Prior to Admission: unable to assess Home Environment: Others in the home: spouse. Current Living Arrangements: home/apartment/condo. Accessibility Concerns: . Current DME: unable to assess [address] [place] [address] Social & Family Supports: All names listed below confirmed with patient as current and correct Extended Emergency Contact Information Primary Emergency Contact: MittalKyra dubose Address: [address] of [place] Relation: Sibling Secondary Emergency Contact: jodie espinoza Mobile Relation: [employer] Current Care Provided by: unable to assess [...] TBD pending hospital course and rehab evals. AFTER SCHOOL COUNSELOR consult requested for emotional support r/t PMH PTSD, bipolar DO and anxiety. Registered Nurse Supply Teacher / Dental Coordinator will continue to follow patient???s progress and remain available if situation changes for coordination of care, psychosocial support and/or discharge planning. Office of Care Management Parvin Barksdale MSN, RN Pager #[phone] * Plan of Care - Irasema Calix [...] Operative Note Patient Name: Jeannie Rico : [id number] MR#: [id number] Case Date: 10/30/2021 Surgeon: Surgeon(s) and Role: [...] Lu MD - 10/30/2021 10:44 AM EDT [facility] Operative Note Patient Name: Jeannie Rico : [id number] MR#: [id number] Case Date: 10/30/2021 Surgeon: Surgeon(s) and Role: [...] C6, which was again confirmed by fluoroscopy. Certified Recreational Therapist holes for our screws were then fashioned bilaterally along the lateral masses of C5 and C6 using a modified Magerl technique with insertion point slightly inferior and medial to the midpoint ofthe lateral masses first using the iLyngoas Cirilo C1 drill bit for the cortical rim, followed by hand drill, tap, and confirmation with ball tip feeler. The right C6 entry point required redirection to avoid entering the facet space. Once we were satisfied with the ear pull machine operator holes bone wax was placed in thepilot holes. Attention was then given to laminectomy. The Midas Cirilo drill M8 bit was used to [...] healing. Attention was then given to closure. [place] irrigation was then performed and meticulous hemostasis [...] then flipped onto the recovery bed, Garsia cotton header removed, and extubated without incident. At [...] 11/02/2021 7:51 PM EDT RAPID COVID-19 PCR ([facility]) Routine 11/02/2021 4:15 PM EDT POCT GLUCOSE [...] 10/31/2021 8:14 AM EDT DIFFERENTIAL, AUTOMATED Routine 11/01/19 8:14 AM EDT HC CBC,PLT & AUTO [...] W/O Facetec Foramot/Dskc 07/26 Vrt Seg, Cervical ([id number]) 10/30/2021 8:44 AM EDT C 5/6 and 6/7 ACDF MODIFIER,POSTERIOR CERVICAL INFINITY MEDTRONIC 10/30/2021 8:44 AM EDT C 5/6 and 6/7 ACDF Posterior Segmental Instrumentation 3-6 Vrt Seg ([id number]) 10/30/2021 8:44 AM EDT C 5/6 and 6/7 ACDF Arthrodesis, Post/Posterolat Tq, Sngle Interspace; Cervical Below C2 Segmnt ([id number]) 10/30/2021 8:44 AM EDT C 5/6 and 6/7 ACDF POCT GLUCOSE Routine 10/30/2021 8:11 AM EDT documented in this encounter Results * POCT Glucose (11/04/2021 11:50 AM EDT) POC Glucose 97 65 - 199 mg/dL [facility] Comment: Supplemental ranges: <140 mg/dL before meals <180 mg/dL all other times of the day Blood 11/04/2021 11:5 0 AM EDT 11/04/2021 11:50 AM EDT Campos Schumacher MD POINT OF CARE TEST O ALYSON Performing Organization Address [facility] Co de Phone Number [facility] [place] [address] * POCT Glucose (11/04/2021 7:41 AM EDT) POC Glucose 133 65 - 199 mg/dL [facility] Comment: Supplemental ranges: <140 mg/dL before meals <180 mg/dL all other times of the day Blood 11/04/2021 7:41 AM EDT 11/04/2021 7:41 AM EDT Campos Schumacher MD POINT OF CARE TEST O ALYSON Performing Organization Address [facility] Co de Phone Number [facility] [place] [address] * POCT Glucose (11/04/2021 3:56 AM EDT) POC Glucose 85 65 - 199 mg/dL [facility] Comment: Supplemental ranges: <140 mg/dL before meals <180 mg/dL all other times of the day Blood 11/04/2021 3:56 AM EDT 11/04/2021 3:56 AM EDT Campos Schumacher MD POINT OF CARE TEST O RDERAKE Performing Organization Address [facility] Co de Phone Number [facility] [place] [address] * POCT Glucose (11/03/2021 11:46 PM EDT) POC Glucose 98 65 - 199 mg/dL [facility] Comment: Supplemental ranges: <140 mg/dL before meals <180 mg/dL all other times of the day Blood 11/03/2021 11:4 6 PM EDT 11/03/2021 11:46 PM EDT Campos Schumacher MD POINT OF CARE TEST O ALYSON Performing Organization Address [facility]/ZIP Co de Phone Number [facility] [place] [address] * POCT Glucose (11/03/2021 7:56 PM EDT) POC Glucose 95 65 - 199 mg/dL [facility] Comment: Supplemental ranges: <140 mg/dL before meals <180 mg/dL all other times of the day Blood 11/03/2021 7:56 PM EDT 11/03/2021 7:56 PM EDT Campos Schumacher MD POINT OF CARE TEST O ALYSON Performing Organization Address [facility] Co de Phone Number [facility] [place] [address] * (ABNORMAL) POCT Glucose (11/03/2021 3:15 PM EDT) POC Glucose 216(H) 65 - 199 mg/dL [facility] Comment: Supplemental ranges: <140 mg/dL before meals <180 mg/dL all other times of the day Blood 11/03/2021 3:15 PM EDT 11/03/2021 3:15 PM EDT Campos Schumacher MD POINT OF CARE TEST O ALYSON Performing Organization Address [facility]/ZIP Co de Phone Number [facility] [place] [address] * (ABNORMAL) POCT Glucose (11/03/2021 12:03 PM EDT) POC Glucose 307(H) 65 - 199 mg/dL [facility] Comment: Supplemental ranges: <140 mg/dL before meals <180 mg/dL all other times of the day Blood 11/03/2021 12:0 3 PM EDT 11/03/2021 12:03 PM EDT Campos Schumacher MD POINT OF CARE TEST O ALYSON Performing Organization Address [facility] Co de Phone Number [facility] [place] [address] * POCT Glucose (11/03/2021 7:44 AM EDT) POC Glucose 110 65 - 199 mg/dL [facility] Comment: Supplemental ranges: <140 mg/dL before meals <180 mg/dL all other times of the day Blood 11/03/2021 7:44 AM EDT 11/03/2021 7:44 AM EDT Campos Schumacher MD POINT OF CARE TEST O ALYSON Performing Organization Address [facility] Co de Phone Number [facility] [place] [address] * POCT Glucose (11/03/2021 4:13 AM EDT) POC Glucose 103 65 - 199 mg/dL [facility] Comment: Supplemental ranges: <140 mg/dL before meals <180 mg/dL all other times of the day Blood 11/03/2021 4:13 AM EDT 11/03/2021 4:13 AM EDT Campos Schumacher MD POINT OF CARE TEST O ALYSON Performing Organization Address [facility] Co de Phone Number [facility] [place] [address] * POCT Glucose (11/03/2021 12:03 AM EDT) POC Glucose 100 65 - 199 mg/dL [facility] Comment: Supplemental ranges: <140 mg/dL before meals <180 mg/dL all other times of the day Blood 11/03/2021 12:0 3 AM EDT 11/03/2021 12:03 AM EDT Campos Schumacher MD POINT OF CARE TEST O RDERAKE Performing Organization Address City/[facility]/ZIP Co de Phone Number [facility] [place] [address] * POCT Glucose (11/02/2021 7:51 PM EDT) POC Glucose 116 65 - 199 mg/dL [facility] Comment: Supplemental ranges: <140 mg/dL before meals <180 mg/dL all other times of the day Blood 11/02/2021 7:51 PM EDT 11/02/2021 7:51 PM EDT Campos Schumacher MD POINT OF CARE TEST O ALYSON Performing Organization Address [facility] Co de Phone Number [facility] [place] [address] * COVID-19 PCR (11/02/2021 4:15 PM EDT) Pathologist [facility] SARS-CoV-2 RNA PCR Not Detected Not Detected [facility] Comment: This result should be interpreted [...] using the Simplexa COVID-19 Direct Assay by [employer] as authorized by the FDA issued Emergency [...] Department of Pathology and Laboratory Medicine at [facility], certified under the Clinical Laboratory Improvement [...] fact sheets at the following FDA website: https://www.fda.gov/medical-devices/rocsedgpwbx-iyifrro-9934-hbexa-04-wevpfbswk- use-a obcahxjgjvofg-hljliak-awsxwlv/gmkhu-ozulgcsgqli-prct SARS-CoV-2 Source [employer] SURFACE HEATER OPERATOR Swab [facility] Nasopharyngeal Swab 11/03/19 4:15 PM EDT 11/02/2021 5:10 PM EDT Comment:Symptoms->Surveillan ce Narrative Resulting Agency Comment Spec In Lab Campos Schumacher MD MICROBIOLOGY - BEKA AL ORDERABLES [facility] [place] [address] * POCT Glucose (11/02/2021 3:35 PM EDT) POC Glucose 100 65 - 199 mg/dL [facility] Comment: Supplemental ranges: <140 mg/dL before meals <180 mg/dL all other times of the day Blood 11/02/2021 3:35 PM EDT 11/02/2021 3:35 PM EDT Campos Schumacher MD POINT OF CARE TEST O ALYSON Performing Organization Address [facility] Co de Phone Number [facility] [place] [address] * POCT Glucose (11/02/2021 11:57 AM EDT) POC Glucose 77 65 - 199 mg/dL [facility] Comment: Supplemental ranges: <140 mg/dL before meals <180 mg/dL all other times of the day Blood 11/02/2021 11:5 7 AM EDT 11/02/2021 11:57 AM EDT Campos Schumacher MD POINT OF CARE TEST O ALYSON Performing Organization Address [facility] de Phone Number [facility] [place] [address] * XR Chest PA & Lateral (Generic) [...] who have questions please contact the health career discovery teacher that requested your imaging first. ? Electronically signed by: Tahira Medrano MD, [facility] ([phone]), at 11/02/2021 11:12 AM Narrative 11/02/2021 11:12 [...] patients who have questions please contactthe health career discovery teacher that requested your imaging first. Campos Schumacher MD IMG DX ORDERABLES * POCT Glucose (11/02/2021 7:20 AM EDT) POC Glucose 97 65 - 199 mg/dL [facility] Comment: Supplemental ranges: <140 mg/dL before meals <180 mg/dL all other times of the day Blood 11/02/2021 7:20 AM EDT 11/02/2021 7:20 AM EDT Campos Schumacher MD POINT OF CARE TEST O RDERABLES Performing Organization Address City/[facility]/ZIP Co de Phone Number [facility] [place] [address] * Duplex Study for DVT, Bilat legs (11/02/2021 7:15 AM EDT) VB Text Report Department: Vascular Surgery Lab Patient: [id number] (JEANNIE RICO) CPT: 18325 Referring Physician: CAMPOS SCHUMACHER ?? Indications: New [...] Schumacher MD VASCULAR ORDERABLES Performing Organization Address [facility]/ZIP Co de Phone Number [facility] * POCT Glucose (11/02/2021 4:02 AM EDT) POC Glucose 90 65 - 199 mg/dL [facility] Comment: Supplemental ranges: <140 mg/dL before meals <180 mg/dL all other times of the day Blood 11/02/2021 4:02 AM EDT 11/02/2021 4:02 AM EDT Campos Schumacher MD POINT OF CARE TEST O ALYSON Performing Organization Address City/[facility]/ZIP Co de Phone Number [facility] [place] [address] * POCT Glucose (11/01/2021 11:59 PM EDT) POC Glucose 97 65 - 199 mg/dL [facility] Comment: Supplemental ranges: <140 mg/dL before meals <180 mg/dL all other times of the day Blood 11/01/2021 11:5 9 PM EDT 11/01/2021 11:59 PM EDT Campos Schumacher MD POINT OF CARE TEST O ALYSON Performing Organization Address [facility]/ZIP Co de Phone Number [facility] [place] [address] * CT Head wo & Multiphase CTA [...] who have questions please contact the health career discovery teacher that requested your imaging first. ? Electronically signed by: Janie Aguilar MD, [facility] ([phone]), at 11/02/2021 12:47 AM Narrative 11/02/2021 12:47 AM EDT EXAMINATION: CT HEAD WO & MULTIPHASE CTA HEAD/NECK (THROMBECTOMY PROTOCOL) CLINICAL HISTORY: cva sx. neuro feficiets TECHNIQUE: CT of head without intravenous contrast. Multiphase CTA of the carotids and chick[place] is performed after the administration [...] dissection. Bilateral vertebral arteries, basilar artery, bilateral form worker, and bilateral posterior communicating arteries are patent [...] intravenous contrast. Multiphase CTA of the carotidsand chickahom[place] is performed after the administration [...] dissection. Bilateral vertebral arteries, basilar artery, bilateral form worker, andbilateral posterior communicating arteries are patent without evidence ofhemodynamically significant stenosis, aneurysm or dissection. Diminutive right [id number]. No perfusion asymmetry on the delayed phase [...] patients who have questions please contactthe health career discovery teacher that requested your imaging first. Campos Schumacher MD IMG CT ORDERABLES * POCT Glucose (11/01/2021 7:50 PM EDT) POC Glucose 91 65 - 199 mg/dL [facility] Comment: Supplemental ranges: <140 mg/dL before meals <180 mg/dL all other times of the day Blood 11/01/2021 7:50 PM EDT 11/01/2021 7:50 PM EDT Campos Schumacher MD POINT OF CARE TEST O RDERAKE Performing Organization Address City/[facility]/ZIP Co de Phone Number [facility] [place] [address] * POCT Glucose (11/01/2021 4:01 PM EDT) POC Glucose 110 65 - 199 mg/dL [facility] Comment: Supplemental ranges: <140 mg/dL before meals <180 mg/dL all other times of the day Blood 11/01/2021 4:01 PM EDT 11/01/2021 4:01 PM EDT Campos Schumacher MD POINT OF CARE TEST O RDERABLES [facility] [place] [address] * POCT Glucose (11/01/2021 11:56 AM EDT) POC Glucose 119 65 - 199 mg/dL [facility] Comment: Supplemental ranges: <140 mg/dL before meals <180 mg/dL all other times of the day Blood 11/01/2021 11:5 6 AM EDT 11/01/2021 11:56 AM EDT Campos Schumacher MD POINT OF CARE TEST O RDERAKE Performing Organization Address City/[facility]/ZIP Co de Phone Number [facility] [place] [address] * POCT Glucose (11/01/2021 7:52 AM EDT) POC Glucose 108 65 - 199 mg/dL [facility] Comment: Supplemental ranges: <140 mg/dL before meals <180 mg/dL all other times of the day Blood 11/01/2021 7:52 AM EDT 11/01/2021 7:52 AM EDT Campos Schumacher MD POINT OF CARE TEST O RDERAKE Performing Organization Address [facility] Co de Phone Number [facility] [place] [address] * POCT Glucose (11/01/2021 3:09 AM EDT) POC Glucose 117 65 - 199 mg/dL [facility] Comment: Supplemental ranges: <140 mg/dL before meals <180 mg/dL all other times of the day Blood 11/01/2021 3:09 AM EDT 11/01/2021 3:09 AM EDT Campos Schumacher MD POINT OF CARE TEST O RDERAKE Performing Organization Address City/[facility] Co de Phone Number [facility] [place] [address] * POCT Glucose (11/01/2021 12:37 AM EDT) POC Glucose 134 65 - 199 mg/dL [facility] Comment: Supplemental ranges: <140 mg/dL before meals <180 mg/dL all other times of the day Blood 11/01/2021 12:3 7 AM EDT 11/01/2021 12:37 AM EDT Campos Schumacher MD POINT OF CARE TEST O ALYSON Performing Organization Address City/[facility] Co de Phone Number [facility] [place] [address] * POCT Glucose (10/31/2021 8:17 PM EDT) POC Glucose 109 65 - 199 mg/dL [facility] Comment: Supplemental ranges: <140 mg/dL before meals <180 mg/dL all other times of the day Blood 10/31/2021 8:17 PM EDT 10/31/2021 8:17 PM EDT Campos Schumacher MD POINT OF CARE TEST O ALYSON Performing Organization Address [facility] Co de Phone Number [facility] [place] [address] * POCT Glucose (10/31/2021 4:16 PM EDT) POC Glucose 129 65 - 199 mg/dL [facility] Comment: Supplemental ranges: <140 mg/dL before meals <180 mg/dL all other times of the day Blood 10/31/2021 4:16 PM EDT 10/31/2021 4:16 PM EDT Campos Schumacher MD POINT OF CARE TEST O ALYSON Performing Organization Address [facility] Co de Phone Number [facility] [place] [address] * (ABNORMAL) pro-Brain Natriuretic Peptide (10/31/2021 12:21 PM EDT) ProBNP 428(H) <=124 pg/mL [facility] Blood Venous Draw / Unknown 10/31/2021 12:21 PM EDT 10/31/2021 12:57 PM EDT Narrative Resulting Agency Comment Spec In Lab Cheryl GR CHEMISTRY ORDERAB LES Performing Organization Address [facility] Co de Phone Number [facility] [place] [address] * Troponin (10/31/2021 12:21 PM EDT) [facility] Troponin-T <0.01 0.00 - 0.00 ng/mL [facility] Comment: The 99th percentile for Troponin T is less than 0.01 ng/mL, any detectable cTnT concentration using this assay should be considered elevated. According to the third universal definition of myocardial infarction the following criteria with a clinical presentation consistent with acute myocardial ischemia meets the diagnosis for a myocardial infarction (SD). Detection of a rise and/or fall of cTnT, with at least one value greater than the 99th percentile (> or = 0.01) and with at least one of the following ?? Symptoms of ischemia ?? New or presumed new significant SK-xslkigl-N wave (ST-T) changes or new left bundle [...] additional sample may be indicated. Reference: Third [place] Definition of Myocardial Infarction. Journal of the [place] [employer] 2012;60:1581-98 Blood 10/31/2021 12:2 1 PM EDT 10/31/2021 12:32 PM EDT Narrative Resulting Agency Comment Spec In Lab Campos Schumacher MD CHEMISTRY ORDERABLES Performing Organization Address [facility] Co de Phone Number [facility] [place] [address] * (ABNORMAL) Basic Metabolic Panel (non-fasting) (10/31/2021 12:21 PM EDT) [facility] Glucose Lvl 118 65 - 199 mg/dL [facility] Comment:Diabetes: >=200 mg/d L plus symptoms BUN 12 8 - 18 mg/dL [facility] Creatinine 0.74 0.70 - 1.20 mg/dL [facility] Sodium 134(L) 135 - 145 mmol/L [facility] Potassium 4.7 3.5 - 5.0 mmol/L [facility] Comment: Please note: ??Patients with WBC >100,000 may have falsely elevated Potassium levels. ??For accurate Potassium quantification in these patients send serum separator tube (gold top) for subsequent determinations. ??Contact the Clinical Chemistry Laboratory if there are any questions. Chloride 98 98 - 107 mmol/L [facility] CO2 28 22 - 31 mmol/L [facility] Anion Gap 8 5 - 15 mmol/L [facility] Calcium 9.0 8.5 - 10.5 mg/dL [facility] Estimated GFR 87 >=60 mL/min/1. 73 m?? [facility] Comment: This patient? s estimated glomerular [...] In Lab Campos Schumacher MD CHEMISTRY ORDERABLES [facility] [place] [address] * Phosphorus (10/31/2021 12:21 PM EDT) Phosphorus 4.4 2.5 - 4.5 mg/dL [facility] Blood 10/31/2021 12:2 1 PM EDT 10/31/2021 12:27 PM EDT Narrative Resulting Agency Comment Spec In Lab Campos Schumacher MD CHEMISTRY ORDERABLES Performing Organization Address [facility] Co de Phone Number [facility] [place] [address] * Magnesium (10/31/2021 12:21 PM EDT) Magnesium 0.78 0.69 - 1.07 mmol/L [facility] Blood 10/31/2021 12:2 1 PM EDT 10/31/2021 12:27 PM EDT Narrative Resulting Agency Comment Spec In Lab Campos Schumacher MD CHEMISTRY ORDERABLES Performing Organization Address [facility] Co de Phone Number [facility] [place] [address] * EKG 12 Lead (10/31/2021 12:08 PM EDT) Ventricular rate 59 BPM MUSE SYSTEM Atrial Rate 59 BPM MUSE SYSTEM P-R Interval 142 ms MUSE SYSTEM QRS Duration 82 ms MUSE SYSTEM Q-T Interval 408 ms MUSE SYSTEM QTC Calculated (Bezet) 403 ms MUSE SYSTEM Calculated P [place] 9 degrees MUSE SYSTEM Calculated R [place] 27 degrees MUSE SYSTEM Calculated T [place] 11 degrees MUSE SYSTEM INTERPRETATION Sinus bradycardia [...] POC Glucose 118 65 - 199 mg/dL [facility] Comment: Supplemental ranges: <140 mg/dL before meals <180 mg/dL all other times of the day Blood 10/31/2021 11:5 3 AM EDT 10/31/2021 11:53 AM EDT Campos Schumacher MD POINT OF CARE TEST O RDERABLES [facility] [place] [address] * (ABNORMAL) Differential, Automated (10/31/2021 8:14 AM EDT) Pathologist [facility] Neutrophils % 85.7 % [facility] Neutr Abs (ANC) 9.06(H) 1.70 - 6.10 x10(3)/ L [facility] Lymphocytes % 6.3 % [facility] Lymphocytes Abs 0.7(L) 0.9 - 3.2 x10(3)/[facility] LABORAT[facility] Monocytes % 7.1 % [facility] Monocyte Abs 0.8 0.3 - 0.9 x10(3)/ L [facility] Eosinophils % 0.2 % [facility] Eosinophils Abs 0.0 0.0 - 0.4 x10(3)/ L [facility] Basophils % 0.3 % [facility] Basophils Abs 0.0 0.0 - 0.1 x10(3)/ L [facility] Immature Gran % 0.40 % [facility] Comment: Immature granulocytes(IG's)percentage and absolute count will include metamyelocytes, myelocytes, and promyelocytes. Blood smears from CBCs yielding IG's will be scanned manually for concordance. If this scan disagrees with the automated IG or if promyelocytes are noted, a manual differential will be performed. Fartun Gran Abs 0.04 0.00 - 0.04 x10(3)/mc L [facility] Blood 10/31/2021 8:14 AM EDT 10/31/2021 8:47 AM EDT Narrative Resulting Agency Comment Spec In Lab Melania Gaxiola MD HEMATOLOGY ORDERAB LES [facility] [place] [address] * (ABNORMAL) Hemogram (10/31/2021 8:14 AM EDT) WBC 10.6(H) 4.0 - 9.5 x10(3)/[facility] LABORATORY RBC 4.26 4.00 - 5.21 x10(6)/[facility] Hemoglobin 13.0 11.7 - 15.5 g/dL [facility] Hematocrit 40.9 35.7 - 45.8 % [facility] MCV 96.0(H) 82.6 - 94.4 fL [facility] MCH 30.5 27.1 - 32.0 pg [facility] MCHC 31.8 31.7 - 35.0 g/dL [facility] Platelets 210 145 - 357 x10(3)/[facility] LABORATORY RDWSD 47.4(H) 37.0 - 46.0 [facility]ORY RDWCV 13.2 11.5 - 14.1 % [facility] MPV 9.8 7.6 - 12.9 [facility] nRBC % Auto 0.0 % [facility] nRBC Abs Auto 0.000 0.000 - 0.000 x10(3)/[facility] Blood 10/31/2021 8:14 AM EDT 10/31/2021 8:47 AM EDT Narrative Resulting Agency Comment Spec In Lab Melania Gaxiola MD HEMATOLOGY ORDERAB LES Performing Organization Address [facility] Co de Phone Number [facility] [place] [address] * POCT Glucose (10/31/2021 7:50 AM EDT) POC Glucose 111 65 - 199 mg/dL [facility] Comment: Supplemental ranges: <140 mg/dL before meals <180 mg/dL all other times of the day Blood 10/31/2021 7:50 AM EDT 10/31/2021 7:50 AM EDT Campos Schumacher MD POINT OF CARE TEST O ALYSON Performing Organization Address [facility] Co de Phone Number [facility] [place] [address] * POCT Glucose (10/31/2021 5:36 AM EDT) POC Glucose 116 65 - 199 mg/dL [facility] Comment: Supplemental ranges: <140 mg/dL before meals <180 mg/dL all other times of the day Blood 10/31/2021 5:36 AM EDT 10/31/2021 5:36 AM EDT Campos Schumacher MD POINT OF CARE TEST O ALYSON Performing Organization Address [facility] Co de Phone Number [facility] [place] [address] * POCT Glucose (10/30/2021 11:28 PM EDT) POC Glucose 119 65 - 199 mg/dL [facility] Comment: Supplemental ranges: <140 mg/dL before meals <180 mg/dL all other times of the day Blood 10/30/2021 11:2 8 PM EDT 10/30/2021 11:28 PM EDT Campos Schumacher MD POINT OF CARE TEST O RDERABLES Performing Organization Address [facility] Co de Phone Number [facility] [place] [address] * POCT Glucose (10/30/2021 7:50 PM EDT) POC Glucose 142 65 - 199 mg/dL [facility] Comment: Supplemental ranges: <140 mg/dL before meals <180 mg/dL all other times of the day Blood 10/30/2021 7:50 PM EDT 10/30/2021 7:50 PM EDT Campos Schumacher MD POINT OF CARE TEST O RDERABLES Performing Organization Address [facility] de Phone Number [facility] [place] [address] * XR Cervical Spine 2 or 3 [...] who have questions please contact the health career discovery teacher that requested your imaging first. ? [...] in the posterior neck with overlying skin arite. Procedure Note Yanet Gann MD - 10/31/2021 [...] patients who have questions please contactthe health career discovery teacher that requested your imaging first. Electronically signed by: YANET GANN [facility] ([phone]),at 10/31/2021 10:23 AM Campos Schumacher MD IMG DX ORDERABLES * POCT Glucose (10/30/2021 3:17 PM EDT) POC Glucose 103 65 - 199 mg/dL [facility] Comment: Supplemental ranges: <140 mg/dL before meals <180 mg/dL all other times of the day Blood 10/30/2021 3:17 PM EDT 10/30/2021 3:17 PM EDT Campos Schumacher MD POINT OF CARE TEST O RDERABLES [facility] [place] [address] * XR Fluoro No Rad <1Hr - OR Use (10/30/2021 1:30 PM EDT) Narrative Dicom, Auditing User - 10/30/2021 2:07 PM EDT This exam is auto-finalizing. No interpretation was done. Campos Schumacher MD IMG FLUORO ORDERABLE S * POCT Glucose (10/30/2021 8:11 AM EDT) POC Glucose 110 65 - 199 mg/dL [facility] Comment: Supplemental ranges: <140 mg/dL before meals <180 mg/dL all other times of the day Blood 10/30/2021 8:11 AM EDT 10/30/2021 8:11 AM EDT Campos Schumacher MD POINT OF CARE TEST O RDERABLES Performing Organization Address City/State/[facility] Co de Phone Number [facility] [place] [address] documented in this encounter Visit Diagnoses Not on filedocumented in this encounter Admitting Diagnoses Diagnosis Arthrodesis [...] Inhalation, EVERY 4 HOURS PRN, Starting on 11/02/21 at 1008, Until Tue11/04/21 at 1803, Wheezing, [...] Given 11/01/2021 9:02 AM EDT 40 mg bacitracin zinc-polymyxin B (Polysporin) ointment ONCE PRN, Starting on Tue10/30/21 at 1106, Until Tue11/04/21 at 1803, Intra-Operative (Intra-Procedure) Given 10/30/2021 11:06 AM EDT 1 oz 20-Other (document in comment section) bisacodyl EC (Dulcolax) tablet 10 mg 10 [...] dose on Tue11/02/21 at 1100, Until Discontinued Given 11/04/2021 9:00 AM EDT 2 Inhalation Given 11/03/2021 8:11 PM EDT 2 Inhalation Given 11/03/2021 9:14 AM EDT 2 Inhalation clonazePAM (KlonoPIN) tablet 0.5 mg 0.5 mg, [...] for the duration of the active insulin. gabapentin (Neurontin) capsule 900 mg 900 mg, Oral, 3 TIMES DAILY, First dose (after last modification) on Tue11/02/21 at 1500, Until Discontinued, Routine Given 11/04/2021 9:09 AM EDT 900 mg Given 11/03/2021 8:10 PM EDT 900 mg Given 11/03/2021 3:11 PM EDT 900 mg gelatin adsorbable (Gelfoam) sponge ONCE PRN, Starting on Tue10/30/21 at 1106, Until Tue11/04/21 at 1803, Intra-Operative (Intra-Procedure) Given 10/30/2021 11:06 AM EDT 1 each 19- Surgical Site glucagon (Glucagen) (1 mg/mL) injection solution 1 [...] Given 11/03/2021 9:12 AM EDT 5,000 Units insulin lispro (HumaLOG;Admelog) (100 unit/mL) subcutaneous injection [...] Routine Given 11/03/2021 3:17 PM EDT 2 Uni ts Given 11/03/2021 12:13 PM EDT 4 Units isosorbide mononitrate CR (Imdur) tablet 30 mg [...] Discontinued, Remove lidocaine 5 %(700 mg/patch) patch lidocaine-EPINEPHrine (pf) (2% - 1:200,000) injection ONCE PRN, Starting on Tue10/30/21 at 1316, Until Tue11/04/21 at 1803, Intra-Operative (Intra-Procedure), Routine Given 10/30/2021 1:16 PM EDT 10 mLs 19- Surgical Site lisinopriL (Zestril) tablet 40 mg 40 mg, [...] repeat times 1 in 4 hours., Routine metoprolol succinate XL (Toprol-XL) tablet 12.5 mg [...] Given 11/03/2021 8:12 PM EDT 5 mLs thrombin (Bovine) (Thrombinar) kit ONCE PRN, Starting on Tue10/30/21 at 1107, Until Tue11/04/21 at 1803, Intra-Operative (Intra-Procedure) Given 10/30/2021 11:07 AM EDT 20,000 Units 19- Surgical Site tiotropium bromide (Spiriva Respimat) 2.5 mcg/actuation inhaler 2 puff 2 puff, Inhalation, 2 TIMES DAILY, First dose on Tue11/02/21 at 1100, Until Discontinued, Must be primed prior to first administration, Routine Given 11/04/2021 9:00 AM EDT 2 puffs Given 11/03/2021 8:11 PM EDT 2 puffs Given 11/03/2021 9:14 AM EDT 2 puffs traMADoL (Ultram) tablet 100 mg 100 mg, Oral, EVERY 6 HOURS PRN, Starting on Tue11/02/21 at 1221, Until 11/04/21 at 1803, Pain, Routine Given 11/04/2021 10:58 AM EDT 100 mg Given 11/04/2021 5:54 AM EDT 100 mg Given 11/03/2021 10:18 AM EDT 100 mg documented in this encounter Active and [...] Provider: Ana Damian)2346 (Given - Provider: David Byers, FABIANA) 0505 (Given - Provider: David Byers, FABIANA)1324 (Given - Provider: Kanu Roberts, FABIANA) amLODIPine [...] Hanson RN) 0944 (Given - Provider: Kanu Roberts, FABIANA) 0909 (Given - Provider: Kanu Roberts, FABIANA) atorvastatin (Lipitor) tablet 40 mg 40 mg, Oral, DAILY, First dose on 10/31/21 at 0900, Until Discontinued, Routine 1749 (Given [...] Byers RN) 09 (Given - Provider: Kanu Roberts, FABIANA) furosemide [...] Byers RN) 0910 (Given - Provider: Ana Damian)151 (Given - Provider: Ana Damian)2009 (Given - Provider: David Byers RN) 0909 (Given - Provider: Kanu Roberts, FABIANA)1500 (Due) heparin (porcine) (5,000 units/1 mL) subcutaneous injection 5,000 Units 5,000 Units, Subcutaneous, EVERY 12 HOURS SCHEDULED (2 times per day), First dose on Tue11/01/21 at 0930, Until Discontinued, Routine 0908 (Given - Provider: Sarah Hanson RN)2021 (Given - Provider: David Byers RN) 09 (Given - Provider: Ana Damian)2011 (Given - Provider: David Byers RN) 0916 (Given - Provider: Kanu Roberts, FABIANA) insulin lispro (HumaLOG;Admelog) (100 unit/mL) subcutaneous injection [...] on 10/31/21 at 0600, Until Discontinued, Routine 0637 (Given - Provider: Earlene Lee RN) 0534 [...] RN) 0240 (Patch Removed - Provider: David Byers RN) 0200 (Patch Removed - Provider: David Byers, FABIANA) lisinopriL (Zestril) tablet 40 mg 40 mg, Oral, DAILY, First dose on 10/31/21 at 0900, Until Discontinued, Routine 902 (Given - Provider: Sarah Hanson RN) 909 (Given - Provider: Ana Damian) 910 (Given - Provider: Kanu Roberts RN) metoprolol succinate XL (Toprol-XL) tablet 12.5 mg 12.5 mg, Oral, DAILY, First dose on 10/31/21 at 0900, Until Discontinued, DO NOT CRUSH OR OPEN, Routine 902 (Given - Provider: Saarh Hanson RN) 910 (Given - Provider: Ana Damian) 911 (Given - Provider: Kanu Roberts RN) pantoprazole EC (Protonix) tablet 40 mg 40 mg, Oral, DAILY, First dose on 10/31/21 at 0900, Until Discontinued 901 (Given - Provider: Sarah Hanson RN) 09 (Given - Provider: Ana Damian) 909 (Given - Provider: Kanu Roberts, FABIANA) prazosin [...] Sarah Hanson RN)2015 (Given - Provider: David Byers RN) 909 (Given - Provider: Ana Damian)2006 (Given - Provider: David Byers RN) 09 (Given - Provider: Kanu Roberts, FABIANA) sertraline (Zoloft) tablet 200 mg 200 mg, Oral, DAILY, First dose (after last modification) on Tue10/30/21 at 2100, Until Discontinued, Routine 2017 (Given - Provider: David Byers, FABIANA) 2007 (Given - Provider: David Byers RN) [...] 0900 (Given - Provider: Kanu Roberts, FABIANA) PRN Medication Order 11/02/2021 11/03/2021 11/04/2021 albuteroL 90 mcg/actuation inhaler 2 puff 2 puff, Inhalation, EVERY 4 HOURS PRN, Starting on Tue11/02/21 at 1008, Until Tue11/04/21 at 1803, Wheezing, Routine, Is there a contraindication to the patient receiving this medication as a nebulizer? Yes 907 (Given - Provider: Kanu Roberts, FABIANA) bisacodyL (Dulcolax) suppository 10 mg 10 mg, [...] tube., Routine 1228 (Given - Provider: Sarah Hanson RN) dextrose 10% infusion(Linked Group 3) 250 [...] Pain, Routine 2018 (Given - Provider: David Byers, FABIANA) 1018 (Given - Provider: Meena Gramajo RN) 0554 (Given - Provider: David Byers RN)1058 (Given - Provider: Kanu Roberts RN) traMADoL [...] Routine documented in this encounter Care Teams Radio Script Writer Relationship Specialty Start Date End Date Hoang Castellanos APRN [address] [place] [address] PCP - General Family Medicine 03/12/20 documented as of this encounter
--- OUTSIDE RECORDS SUMMARY | 2024-02-22 00:48 | XMS_ITS | Encounter Summary ---
[place] [address] Care Team Providers Care Solar Applications Development Engineer Name Role Phone Hoang Castellanos APRN Primary Care Provider [phone] Encounter Details Date Type Department Care Team (Late st Contact Info) Description 11/04/2021 [place] [address] Chikis Orourke Social History Tobacco Use Types Packs/Day Years [...] encounter Miscellaneous Notes * Telephone Encounter - Chikis Orourke - 11/04/2021 1:54 PM EDT Monique from [facility] calling to advise potential interaction between tramadol prescribed and Viibryd, please call to approve script or change medications documented in this encounter Plan of Treatment Not on file documented as of this encounter Visit Diagnoses Not on filedocumented in this encounter Care Teams Solar Applications Development Engineer Relationship Specialty Start Date End Date Hoang Castellanos, SET UP INSPECTOR [address] [place] [address] PCP - General Family Medicine 03/12/20 documented as of this encounter
--- OUTSIDE RECORDS SUMMARY | 2024-02-22 00:48 | XMS_ITS | Encounter Summary ---
Author Organization [facility] [address] Care Team Providers Care Trench Digger Helper Name Role Phone Hoang Castellanos APRN Primary Care Provider Encounter Details Date Type Department Care Team (Late st Contact Info) Description 11/26/2021 Telephone Primary Care at [facility] [place] [place] [phone] Jeannie Luciano, RN Social History Tobacco Use [...] Telephone Encounter - Jeannie Luciano RN - 11/30/2021 11:33 AM EDT [facility]; re: jeannie marti 60 any sutures can be removed now;not sure how she left without having them remvoed; will send overnight oximetry notes; and thinks they were going to order home O2 and she'll f/u with RT; and hospital bed--doesn't feel lke she has any positional requiresment; not needed; doing well getting in/out of bed fine there; ? spinal precatuions; but no speciofica requirements for hopsital bed from their standpoint; they will send notes and any further ? call [phone] Message received from Raven at [facility]. 1)any sutures can be removed at any time. Paige apologized and said she's not sure why they were missed upon discharge from their facility 2)she will send notes on overnight oximetry 3)respiratory therapy was supposed to order O2 for Jeannie when she was d/c and she will f/u with RT and make sure that is taken care of 4) Paige said there are no specific positional requirements for Jeannie in regards to a hospital bed. She said she was doing fine there getting in/out of bed before discharge but said there are no specific needs for her. Paige did speak with PT who said maybe spinal precautions could be used for diagnosis but they didn't feel it necessary for hospital bed. * Telephone Encounter - Jeannie Luciano RN - 11/27/2021 3:20 PM EDT Message received from Paige at [facility] calling back to discuss. Tried to reach her, but she is out of the office today. Left detailed message asking for more information on 1)overnight oximetry documentation 2)when do sutures need to be removed 3)any documentation for positional needs to support need for hospital bed * Telephone Encounter - Jeannie Luciano RN - 11/26/2021 4:22 PM EDT Message received from Bárbara Morfin RN with [facility] that she admitted Jeannie to services today but she had questions about 1)suture removal--she knows there were artie removed but said Jeannie still has sutures and they weren't sure when they needed to be removed 2)questions about hospital bed 3) questions about O2. Reviewed the d/c summary from [facility] and there was nothing noted about sutures, nothing noted about her positional needs for hospital bed and according to the D/C summary, respiratory therapy at [facility] was ordering an overnight oximetry while she was admitted and they would order the O2. We have not received notes from the overnight oximetry and those will be needed per Medicare guidelines. Call placed to [facility] asking for more information; awaiting call back. documented in this encounter Plan of Treatment Not on file documented as of this encounter Visit Diagnoses Not on filedocumented in this encounter Care Teams Trench Digger Helper Relationship Specialty Start Date End Date Hoang Castellanos, POUNDMASTER [address] [place] [place] [address] PCP - General Family Medicine 03/12/20 documented as of this encounter
--- OUTSIDE RECORDS SUMMARY | 2024-02-22 00:48 | XMS_ITS | Encounter Summary ---
Author Organization [facility] Address [facility] [place] [address] Care Team Providers Care Web Design Instructor Name Role Phone Hoang Castellanos APRN Primary Care Provider Encounter Details Date Type Department Care Team (Late st Contact Info) Description 06/06/2022 Plan of Care Documentation [facility] Home Health [address] [place] [phone] Social History Tobacco Use Types Packs/Day Years [...] slept in a correction (including now)? No 03/23/2022 Sex and Gender Information Value Date Recorded Sex Assigned at Not on file Gender Identity Not on file Sexual Orientation Not on file documented as of this encounter Plan of Treatment Not on file documented as of this encounter Visit Diagnoses Not on filedocumented in this encounter Care Teams Web Design Instructor Relationship Specialty Start Date End Date Hoang Castellanos, SAM [address] [place] [address] PCP - General Family Medicine 03/12/20 documented as of this encounter
--- OUTSIDE RECORDS SUMMARY | 2024-02-22 00:48 | XMS_ITS | Encounter Summary ---
[place] [address] Care Team Providers Care Magazine Grinder Loader Name Role Phone Mark Holguin APRN Primary Care Provider Encounter Details Date Type Department Care Team (Late st Contact Info) Description 11/26/2021 Telephone Primary Care at [facility] [address] [place] [phone] Yvonne Luciano, RN Social History Tobacco Use Types [...] encounter Miscellaneous Notes * Addendum Note - Mark Holguin APRN - 11/27/2021 9:16 AM EDTAddended by: MARK HOLGUIN on: 11/27/2021 09:16 AM Modules accepted: Orders * Telephone Encounter - Mark Holguin APRN - 11/27/2021 9:15 AM EDT OK for scanning-thanks * Addendum Note - Yvonne Luciano RN - 11/26/2021 2:43 PM EDTAddended by: YVONNE LUCIANO on: 11/26/2021 02:43 PM Modules accepted: Orders * Telephone Encounter - Mark Holguin APRN - 11/26/2021 12:[address] order for hospital bed. thanks * Telephone Encounter - Yvonne Luciano RN - 11/26/2021 10:02 AM EDT Message received from pt asking for an Rx for a hospital bed after her recent D/C from [facility] after neck surgery. No D/C notes in chart. Called [facility] and they are re-faxing now. documented in this encounter Plan of Treatment Not on file documented as of this encounter Visit Diagnoses Diagnosis Cervical spondylosis with myelopathy documented in this encounter Care Teams Magazine Grinder Loader Relationship Specialty Start Date End Date Mark Holguin APRN [address] [place] [address] PCP - General Family Medicine 03/12/20 documented as of this encounter
--- OUTSIDE RECORDS SUMMARY | 2024-02-22 00:48 | XMS_ITS | Encounter Summary ---
Author Organization [facility] [place] [address] Care Team Providers Care Social Media Marketer Name Role Phone Hoang Castellanos APRN Primary Care Provider [phone] Reason for Referral * Home Health Care (Routine) - Closed Specialty Diagnoses / Procedures Referred By Contdavide t Referred To Contact Diagnoses Cervical spondylosis with myelopathy Adri Moe MD [address] [place] [address] [address] Referral ID Status Reason Start Date Expiration Date V isits Requested Visits Authorized [id number] Closed Consult, Test & Treat 11/24/2021 11/24/[phone] Encounter Details Date Type Department Care Team (Late st Contact Info) Description 11/24/2021 Transcribe Orders [facility] Incoming Referrals [phone] Adri Moe MD [address] [place] [id number] Cervical spondylosis with myelopathy Social History Tobacco Use Types Packs/Day Years [...] Associated Diagnoses Orde r Schedule Referral to Home Health Outpatient Referral Routine Cervical spondylosis with myelopathy Ordered: 11/24/2021 documented as of this encounter Visit Diagnoses Diagnosis Cervical spondylosis with myelopathy documented in this encounter Care Teams Social Media Marketer Relationship Specialty Start Date End Date Hoang Castellanos, ENTERTAINMENT & MEDIA CORRESPONDENT [address] [place] [address] PCP - General Family Medicine 03/12/20 documented as of this encounter
--- OUTSIDE RECORDS SUMMARY | 2024-02-22 00:48 | XMS_ITS | Encounter Summary ---
Author Organization [facility] [place] [address] Care Team Providers Care Instructional Technology Teacher Name Role Phone Hoang Castellanos APRN Primary Care Provider Reason for Visit * Home Health Care (Routine) - Closed Specialty Diagnoses / Procedures Referred By Vanita t Referred To Contact Diagnoses Cervical spondylosis with myelopathy Adri Moe MD [address] [place] [address] [phone] Referral ID Status Reason Start Date Expiration Date V isits Requested Visits Authorized [id number] Closed Consult, Test & Treat 11/24/2021 11/24/[phone] Encounter Details Date Type Department Care Team (Late st Contact Info) Description 11/30/2021 9:00 AM EDT Home Care Visit [address] [phone] Raj Nowak, PT PT EVALUATION Social History Tobacco Use Types Packs/Day [...] Sign Reading Time Taken Comments Blood Pressure 100/58 11/30/2021 9:18 AM EDT Pulse 67 11/30/2021 9:18 AM EDT Temperature 36.6 ??C (97.9 ??F) 11/30/2021 9:18 AM ED T Respiratory Rate - - Oxygen Saturation 94% 11/30/2021 9:18 AM EDT Inhaled Oxygen Concentration - - Weight - - Height - - Body Mass Index - - documented in this encounter Miscellaneous Notes * Home Health - Raj Lr, PT - 11/30/2021 9:00 AM EDT PATIENT IS A 61 YEAR OLD FEMALE S/P C5/6 PCDF ON 10.30.21. [facility] RETURNED HOME ON 11.24.21. PATIENT LIVES AT HOME WITH HER IN 1ST FLOOR APARTMENTWITH RAMP TO ENTER. PATIENT RECEIVED COUNT INCLUDES THE [facility] HH PT SERVICES PRIOR TO SURGERY TO IMPROVE HER MOBILITY AND STRENGTH PRIOR TO SURGERY. SHE PRESENTS TODAY FOLLOWING C5/6 PCDF- SHE REPORTS COMPLAINTS OF B SHOULDER/NECK PAIN, BUT OVERALL FEELING BETTER THAN PRE-SURGERY. SHE CONTINUES TO HAVE WEAKNESS AND REDUCED MOBILITY OF BUE AND R>LLE. THIS WEAKNESS CONTRIBUTES TO DIFFICULTY WITH ADLS, AMBULATION, BED MOBILITY, AND HOUSEHOLD TRANSFERS. SHE IS INSTRUCTED TODAY IN STANDING EXERCISES TO COMPLETE DAILYTO FUNCTIONALLY IMPROVE LE STRENGTH, WELL EDUCATED TO CONTINUE WITH SUPINE/SEATED EXERCISES INSTRUCTED PER [facility]. SHE VERBALIZES UNDERSTANDING. SHE WILL CONTINUE TO BENEFIT FROM [facility] PT SERVICES IN ORDER TO FURTHER IMPROVE HER STRENGTH, SAFETY, AND ACTIVITY TOLERANCE, WITH GOAL FOR EVENTUAL DC TO OPPT. documented in this encounter Plan of Treatment Not on file documented as of this encounter Visit Diagnoses Not on filedocumented in this encounter Care Teams Instructional Technology Teacher Relationship Specialty Start Date End Date Hoang Castellanos APRN [address] [place] [address] PCP - General Family Medicine 03/12/20 documented as of this encounter
--- OUTSIDE RECORDS SUMMARY | 2024-02-22 00:48 | XMS_ITS | Encounter Summary ---
Author Organization [facility] [place] [address] Care Team Providers Care Computer Repair Engineer Name Role Phone Hoang Castellanos APRN Primary Care Provider [phone] Reason for Visit * Reason Comments Follow-up Encounter Details Date Type Department Care Team (Late st Contact Info) Description 12/01/2021 11:30 AM EDT Office Visit Primary Care at [facility] [place] [phone] Hoang Castellanos APRN [address] [place] [address] Cervicalgia; Chronic pain syndrome; Chronic obstructive pulmonary disease, unspecified COPD type; History of diabetes mellitus, type II; Arthrodesis present; Right leg weakness Social History Tobacco Use Types Packs/Day Years [...] Sign Reading Time Taken Comments Blood Pressure 96/60 12/01/2021 11:13 AM EDT Pulse 76 12/01/2021 11:13 AM EDT Temperature - - Respiratory Rate - - Oxygen Saturation 96% 12/01/2021 11:13 AM EDT Inhaled Oxygen Concentration - - Weight - - Height - - Body Mass Index - - documented in this encounter Progress Notes * Hoang Castellanos APRN - 12/01/2021 11:30 AM EDT Images from the original note were not included. Subjective: HPI: Jeannie Rico is a 61 y.o. female presenting to the [facility] HPI Discharge from [facility] Neck pain s/p C5-6 PCDF on 10/30/[address] Puente Patient is managing pain with use of Tizanidine 4mg q6h PRN Tramadol caused psychosis She also has lidoderm patches and is requesting RF of Voltaren gel She wants a hospital bed Difficulty lying flat d/t SOB She states she ends up on stomach during the night Hard time getting in/out of bed Fairly high bed at home Trying to use pillows to prop up but ends up on stomach anyway [facility] HH services HH RN, P.T., O.T. Right leg feels good All of the lower back pain is gone Occasional tingling/stiffness in arms/shoulder Has an appt with Dr. Puente on 12/03. She is supposed to have XRs in the AM, visit at noon-unsure how to do this d/t significant pain sitting in WC for too long. She arrived 45 min early and threatened to leave after 30 min d/t pain. Sitting up in WC increases her pain, usually needs to change position frequently She is off some of her BP meds d/t hypotension, including Lisinopril, Amlodipine, and Toprol XL. She is still taking Imdur. No smoking She admits to cravings because partner smokes Not using nicotine lozenges/gum-would like patches Overnight oximetry done at [facility]. Home O2 was ordered through [employer]. Lowest sleep sat was 75%. Objective: VS: BP 96/60 Pulse 76 LMP (LMP Unknown) SpO2 96% Physical Exam Vitals reviewed. Constitutional: General: She is awake. Appearance: Normal appearance. She is well-developed and well-groomed. She is obese. Comments: Sitting in wheelchair HENT: Head: Normocephalic and atraumatic. Cardiovascular: Rate and Rhythm: Normal rate and regular rhythm. Pulses: Normal pulses. Radial pulses are 2+ on the right side and 2+ on the left side. Heart sounds: Normal heart sounds, S1 normal and S2 normal. Pulmonary: Effort: Pulmonary effort is normal. Breath sounds: Normal breath sounds. Musculoskeletal: Cervical back: Decreased range of motion (wearing brace). Right lower leg: No edema. Left lower leg: No edema. Skin: General: Skin is warm and dry. Capillary Refill: Capillary refill takes less than 2 seconds. Neurological: Mental Status: She is alert and oriented to person, place, and time. Motor: Weakness (right lower leg) present. Psychiatric: Attention and Perception: Attention normal. Mood and Affect: Mood and affect normal. Behavior: Behavior normal. Behavior is cooperative. Thought Content: Thought content normal. Judgment: Judgment normal. Assessment and Plan: Jeannie was seen today for follow-up . Diagnoses and all orders for this visit: Cervicalgia - lidocaine (Lidoderm) 5% Adhesive Patch, Medicated; Place 2 patches onto affected area for 12 hours then remove for 12 hours - diclofenac (Voltaren) 1 % Gel; Apply topically daily. - nicotine (Nicoderm CQ) 14 mg/24 hr Patch 24 hr; Change 1 patch on the skin daily. - tiZANidine (Zanaflex) 4 mg Tablet; Take 1 tablet by mouth every 6 hours as needed. Chronic pain syndrome - tiZANidine (Zanaflex) 4 mg Tablet; Take 1 tablet by mouth every 6 hours as needed. Chronic obstructive pulmonary disease, unspecified COPD type History of diabetes mellitus, type II - Hemoglobin A1c; Future; Expected date: 12/01/2021 Arthrodesis present Right leg weakness Other orders - Discontinue: Saccharomyces boulardii (Florastor) 250 mg Capsule; Take 250 mg by mouth 2 times daily. - fluticasone propion-salmeteroL (ADVAIR) 500-50 mcg/dose Disk with Device; Inhale 1 puff into the lungs every 12 hours. - Saccharomyces boulardii (Florastor) 250 mg Capsule; Take 1 capsule by mouth 2 times daily. Patient is doing well status post C5-6 PCDF on 10/30. [facility] and is happy to be home. She has had no falls since being home and notices a significant improvement in herneurological symptoms and pain overall. She continues to have right lower extremity weakness and isambulating with a walker at home. She is managing pain with lidocaine patches, tizanidine. Will resume diclofenac gel as well. She has a follow-up appointment with Dr. Puente on 12/03. She will call their department to manage scheduling of her x-rays and follow-up appointment as she cannot sit at the hospital for 4 hours between due to worsening pain sitting in wheelchair. COPD-stable on Advair and Spiriva. She has been able to quit smoking since preop. We will continue NicoDerm patches however as her partner smokes and she is high risk of resuming. She has nocturnal oxygen ordered through supplier [employer]. Reviewed nocturnal oximetry. Patient with history of diabetes however recent A1c was in normal range at 5.6. She does not need to monitor home glucose levels. We will repeat A1c every 6 to 12 months for close monitoring. There are no Patient Instructions on file for this visit. FOLLOWUP: Return in about 3 months (around 03/03/2022) for In Person CDR/AWV. On the day of this encounter, I the medical provider spent a total of at least 40 minutes providingthis patient's care. This includes time spent [id number] with the patient performing evaluation, examination, and counseling. It also includes non [id number] time preparing to see the patient, reviewing the chart, coordinating care, and documenting clinical information in the electronic health record. (Established patient total visit time: 20791 - 20min, 43144 - 30 min, 01043 - 40 min; New patient total visit times: 50761 - 30 min, 20209 - 45 min, 92422 - 60 min) documented in this encounter Plan of Treatment Not on file documented as of this encounter Visit Diagnoses Diagnosis Cervicalgia Chronic pain syndrome Chronic obstructive pulmonary disease, unspecified COPD type History of diabetes mellitus, type II Personal history of other endocrine, metabolic, and immunity disorders Arthrodesis present Arthrodesis status Right leg weakness Other musculoskeletal symptoms referable to limbs documented in this encounter Care Teams Computer Repair Engineer Relationship Specialty Start Date End Date Hoang Castellanos APRN [address] [place] [address] PCP - General Family Medicine 03/12/20 documented as of this encounter
--- OUTSIDE RECORDS SUMMARY | 2024-02-22 00:48 | XMS_ITS | Encounter Summary ---
Author Organization [facility] [place] [address] Care Team Providers Care Instructional Leader Name Role Phone Hoang Castellanos APRN Primary Care Provider Encounter Details Date Type Department Care Team (Late st Contact Info) Description 12/01/2021 Refill Primary Care at [facility] [place] [phone] Jeannie Luciano RN Chronic obstructive pulmonary disease, unspecified COPD type; Cervicalgia; Coronary artery disease involving [place] coronary artery of [place] heart without angina pectoris Social History Tobacco [...] Telephone Encounter - Hoang Castellanos APRN - 12/02/2021 8:23 AM EDT RX sent per pharmacy recs. We need to clarify Sertraline/Vibryd, because this was not on recent med list from hospitalization in October or rehab stay at [facility]-unsure if patient realizes this change * Telephone Encounter - Jeannie Luciano RN - 12/01/2021 4:02 PM EDT Message received from Saba at [facility] asking to do a med reconciliation. meds reviewed, and she will need refills of Ventolin HFA, nitro--pended to PCP. 1)Diclofenac sodium--they need a new Rx with how many grams to apply per day for insurance otherwise they won't cover 2)Lidocaine patches at 5% are not normally covered but her insurance will usually cover 4% patches--need new Rx 3)FLorastor capsules unlikely to be covered as well--they've dispensed Acidophilus with 500million lactobacillus 2 caps BID in the past and asked to keep her on that--will need a new Rx as well. Also, they show she has stopped Sertraline in September 2021 and was changed to Viibryd 10mg QD per [facility]. Saba said she is happy to ask [facility] when she talks with them to do a med reconciliation to have Jeannie sign a release so we can exchange current medication lists. Requested Prescriptions Pending Prescriptions Disp Refills ??? nitroGLYcerin (Nitrostat) 0.4 mg Tablet, Sublingual 30 tablet 1 Sig: Place 1 tablet under the tongue every 5 minutes as needed for Chest pain. ??? albuteroL (Ventolin HFA) 90 mcg/actuation HFA Aerosol Inhaler 18 g 2 Sig: INHALE 1 TO 2 PUFFS EVERY SIX HOURS NEEDED *CALL TO REFILL* documented in this encounter Plan of Treatment Not on file documented as of this encounter Visit Diagnoses Diagnosis Chronic obstructive pulmonary disease, unspecified COPD type Cervicalgia Coronary artery disease involving [place] coronary artery of [place] heart without angina pectoris documented in this encounter Care Teams Instructional Leader Relationship Specialty Start Date End Date Hoang Castellanos APRN [address] [place] [address] PCP - General Family Medicine 03/12/20 documented as of this encounter
--- OUTSIDE RECORDS SUMMARY | 2024-02-22 00:48 | XMS_ITS | Encounter Summary ---
Author Organization [facility] Address [facility] [place] [address] Care Team Providers Care Commissary Helper Name Role Phone Hoang Castellanos APRN Primary Care Provider [phone] Encounter Details Date Type Department Care Team (Late st Contact Info) Description 11/30/2021 Orders Only [facility] [place] [phone] Hoang Castellanos APRN [address] [place] [address] Social History Tobacco Use Types Packs/Day Years [...] on filedocumented in this encounter Care Teams Commissary Helper Relationship Specialty Start Date End Date Hoang Castellanos APRN [address] [place] [address] PCP - General Family Medicine 03/12/20 documented as of this encounter
--- OUTSIDE RECORDS SUMMARY | 2024-02-22 00:48 | XMS_ITS | Encounter Summary ---
Author Organization [facility] [place] [address] Care Team Providers Care Supplier Manager Name Role Phone Hoang Castellanos APRN Primary Care Provider Reason for Visit * Home Health Care (Routine) - Closed Specialty Diagnoses / Procedures Referred By Vanita t Referred To Contact Diagnoses Cervical spondylosis with myelopathy Adri Moe MD [address] [place] [address] [address] Referral ID Status Reason Start Date Expiration Date V isits Requested Visits Authorized [id number] Closed Consult, Test & Treat 11/24/2021 11/24/[phone] Encounter Details Date Type Department Care Team (Latest Contact Info) Description 11/26/2021 9:30 AM EDT Home Care Visit [address] [phone] Bárbara Morfin RN SN [facility] START OF CARE Social History Tobacco Use Types Packs/Day Years [...] in a group home (including now)? No 12/01/2021 Sex and Gender Information Value Date Recorded Sex Assigned at Not on file Gender Identity Not on file Sexual Orientation Not on file documented as of this encounter Last Filed Vital Signs Vital Sign Reading Time Taken Comments Blood Pressure 126/54 11/26/2021 9:47 AM EDT Pulse 55 11/26/2021 9:47 AM EDT Temperature 36.2 ??C (97.2 ??F) 11/26/2021 9:47 AM ED T Respiratory Rate 12 11/26/2021 9:47 AM EDT Oxygen Saturation 98% 11/26/2021 9:47 AM EDT Inhaled Oxygen Concentration - - Weight 96.2 kg (212 lb) 11/26/2021 9:47 AM EDT Height 160 cm (5' 3) 11/26/2021 9:47 AM EDT Body Mass Index 37.55 11/26/2021 9:47 AM EDT documented in this encounter Miscellaneous Notes * Home Health - Bárbara Morfin RN - 11/26/2021 9:25 AM EDT Pt waiting on hospital bed referral from PCP Assess pill senior buyer planner usage as there are new medications in bottles and existing ones in bubble packs. Assess oxygen safety r/t nocturnal oxygen use 2L, smoking outside, and o2 use signage posted. Follow up about orders for suture removal DM II with hyperglycemia that is managed only by diet, pt interested in nutrition education Edema and application of compression socks Flying nats present, not cluttered, has full hallway hand railing, 3 cats present in home, step over tub, shower chair present, pt waiting on extended chair for shower, pt not able to wash hair in sink due to md orders to not lean over. Assess use of nicotine gum and Smoking cessation DC intended for 1 month of visits Kimberly Majano [phone] from [employer] [facility]: wheelchair Aminah Haro [phone] emergency contact documented in this encounter Plan of Treatment Scheduled Referrals Name Type Priority Associated Diagnoses Orde r Schedule Referral to Home Health Outpatient Referral Routine Cervical spondylosis with myelopathy Ordered: 11/24/2021 documented as of this encounter Visit Diagnoses Not on filedocumented in this encounter Care Teams Supplier Manager Relationship Specialty Start Date End Date Hoang Castellanos APRN [address] [place] [address] PCP - General Family Medicine 03/12/20 documented as of this encounter
--- OUTSIDE RECORDS SUMMARY | 2024-02-22 00:49 | XMS_ITS | Encounter Summary ---
Author Organization [facility] Address [facility] [place] [address] Care Team Providers Care Supervisor Coffee Name Role Phone Hoang Castellanos APRN Primary Care Provider Encounter Details Date Type Department Care Team (Late st Contact Info) Description 06/06/2022 Plan of Care Documentation [facility] Choices for Care [address] [place] [phone] Social History Tobacco Use Types Packs/Day Years Used Date Smoking Tobacco: Every Day Cigarettes 2 50 Smokeless Tobacco: Never Alcohol Use Standard Drinks/Week Comments No 0 [...] filedocumented in this encounter Care Teams Supervisor Coffee Relationship Specialty Start Date End Date Hoang Castellanos APRN [address] [place] [address] PCP - General Family Medicine 03/12/20 documented as of this encounter
--- OUTSIDE RECORDS SUMMARY | 2024-02-22 00:49 | XMS_ITS | Encounter Summary ---
[place] [address] Care Team Providers Care Cone Classifier Tender Name Role Phone Hoang Castellanos APRN Primary Care Provider [phone] Reason for Referral * Diagnostic Test (Routine) - Closed Specialty Diagnoses / Procedures Referred By Contac t Referred To Contact Radiology Diagnoses Cervical spondylosis Procedures CT Cervical Spine wo Contrast Campos Puente MD [facility] [place] [address] [facility] [place] [address] Referral ID Status Reason Start Date Expiration Date V isits Requested Visits Authorized [id number] Closed Specialty Service Requested 08/09/2021 02/06/2023 1 1 Encounter Details Date Type Department Care Team (Late st Contact Info) Description 08/06/2021 10:00 AM EST Office [place] [address] Campos Puente MD [facility] [place] [address] Cervical spondylosis Social History Tobacco Use Types Packs/Day Years Used Date Smoking Tobacco: Some Days Cigarettes 2 50 Smokeless Tobacco: Never Comments:smoking 3 cigarette s [...] Sign Reading Time Taken Comments Blood Pressure 144/69 08/06/2021 9:36 AM EST Pulse 50 08/06/2021 9:36 AM EST Temperature 36.4 ??C (97.5 ??F) 08/06/2021 9:36 AM ES T Respiratory Rate 18 08/06/2021 9:36 AM EST Oxygen Saturation 98% 08/06/2021 9:36 AM EST Inhaled Oxygen Concentration - - Weight 94.5 kg (208 lb 6.4 oz) 08/06/2021 9:36 A M EST Height 160 cm (5' 3) 08/06/2021 9:36 AM EST Body Mass Index 36.92 08/06/2021 9:36 AM EST documented in this encounter Progress Notes * Campos Puente MD - 08/06/2021 10:00 AM EST Jeannie Rico returns to neurosurgery clinic. She was scheduled to undergo cervical spine surgery but she canceled the operation due to visitor restrictions during the current pandemic. She is accompanied to this visit by her life enrichment specialist. She states that her function has been completely stable sincewe last spoke. She is now agreeable to undergo surgery with the current visitor restrictions in place. We again had a discussion on the risks and potential benefits of surgery. I think it would be valuable to get aCT scan of her cervical spine and then we will proceed with scheduling. documented in this encounter Plan of Treatment Not on file documented as of this encounter Results * CT Cervical Spine wo Contrast (08/18/2021 8:08 AM EST) Anatomical Region Laterality Modality C-spine Computed Tomogra phy 08/18/2021 8:23 AM EST Impressions 08/18/2021 10:43 AM EST Cervical spondylosis with severe stenosis at C5-6 and C6-7 due to combination of bone, disc, and ligamentous redundancy.. I have personally reviewed the image(s) and the resident's interpretation and agree with the findings, Siomara Rahman MD at 08/18/2021 10:43 AM Thank you for letting us participate in the care of this patient. ??If you are a health care provider and have any questions regarding this report, please contact the number below. ??For patients who have questions please contact the health director of career resources that requested your imaging first. ? Narrative 08/18/2021 10:43 AM EST EXAMINATION: CT CERVICAL SPINE WO CONTRAST CLINICAL HISTORY: Cervical radiculopathy ? Ossification of the posterior longitudinal ligament (OPLL). Pending cervical spine surgery. TECHNIQUE: CT cervical spine performed without intravenous contrast administration. COMPARISON: MRI cervical spine 03/10/2021 FINDINGS: Several millimeter retrolisthesis of C3 on C4, C4-C5, C5 on C6, unchanged from prior. No ossification of the posterior longitudinal ligament. Multilevel degenerative cervical spine characterized by disc height loss, endplate deformity, osteophyte formation, uncovertebral arthropathy, facet arthropathy, most severe at C5-C6. C2-3: No significant spinal canal or foraminal stenosis. C3-4: No significant spinal canal or foraminal stenosis. C4-5: The disc seen on the prior MRI examination is not calcified. Uncovertebral arthropathy mildly narrows the foramina. C5-6: Severe disc height loss at this level. Portions of the disc calcified along with large endplate osteophytes projecting into the canal. This combined with ligamentous redundancy contributes to pronounced central canal stenosis. Uncovertebral arthropathy severely narrows the foramina. C6-7: Endplate proliferation combined with the disc seen on the prior MRI and this redundancy severely narrowing the central canal. Uncovertebral arthropathy severely narrowing the foramina. C7-T1: No significant spinal canal or foraminal stenosis. Visualized lung apices are clear. Procedure Note Siomara Rahman MD - 08/18/2021 EXAMINATION: CT CERVICAL SPINE WO CONTRAST CLINICAL HISTORY: Cervical radiculopathy ? Ossification of the posterior longitudinal ligament (OPLL). Pending cervical spine surgery. TECHNIQUE: CT cervical spine performed without intravenous contrast administration. COMPARISON: MRI cervical spine 03/10/2021 FINDINGS: Several millimeter retrolisthesis of C3 on C4, C4-C5, C5 on C6, unchangedfrom prior. No ossification of the posterior longitudinal ligament. Multilevel degenerative cervical spine characterized by disc heightloss, endplate deformity, osteophyte formation, uncovertebral arthropathy,facet arthropathy, most severe at C5-C6. C2-3: No significant spinal canal or foraminal stenosis. C3-4: No significant spinal canal or foraminal stenosis. C4-5: The disc seen on the prior MRI examination is not calcified.Uncovertebral arthropathy mildly narrows the foramina. C5-6: Severe disc height loss at this level. Portions of the disccalcified along with large endplate osteophytes projecting into the canal. Thiscombined with ligamentous redundancy contributes to pronounced central canalstenosis. Uncovertebral arthropathy severely narrows the foramina. C6-7: Endplate proliferation combined with the disc seen on the prior MRIand this redundancy severely narrowing the central canal. Uncovertebralarthropathy severely narrowing the foramina. C7-T1: No significant spinal canal or foraminal stenosis. Visualized lung apices are clear. IMPRESSION Cervical spondylosis with severe stenosis at C5-6 and C6-7 due tocombination of bone, disc, and ligamentous redundancy.. I have personally reviewed the image(s) and the resident's interpretationand agree with the findings, Siomara Rahman MD at 08/18/2021 10:43 AM Thank you for letting us participate in the care of this patient. If youare a health care provider and have any questions regarding this report,please contact the number below. For patients who have questions please contactthe health director of career resources that requested your imaging first. Campos Puente MD IMG CT ORDERABLES documented in this encounter Visit Diagnoses Diagnosis Cervical spondylosis Cervical spondylosis without myelopathy Cervical spondylosis Cervical spondylosis without myelopathy documented in this encounter Care Teams Cone Classifier Tender Relationship Specialty Start Date End Date Hoang Castellanos, STUDENT SERVICES DEAN [address] [place] [address] PCP - General Family Medicine 03/12/20 documented as of this encounter
--- OUTSIDE RECORDS SUMMARY | 2024-02-22 00:49 | XMS_ITS | Encounter Summary ---
Author Organization [facility] [place] [address] Care Team Providers Care Bulk Mail Technician Name Role Phone Hoang Castellanos APRN Primary Care Provider [phone] Reason for Visit * Reason Comments Medication Refill Encounter Details Date Type Department Care Team (Late st Contact Info) Description 09/14/2021 Refill Primary Care at [facility] [address] [place] [phone] Hoang Castellanos APRN [address] [place] [address] Cervicalgia; Chronic pain syndrome Social History Tobacco Use Types Packs/Day Years [...] encounter Miscellaneous Notes * Telephone Encounter - Maria D Joshi CCMA - 09/14/2021 3:11 PM EST Medication name: Tizanidine Last Prescription Fill Date: 06/16/21 Number Dispensed and Refills: 21/10 Last Related Office Visit: 2/7/22 Upcoming Appointment: Visit date not found No flowsheet data found. Lab Results Component Value Date HGB 14.7 08/07/2021 HCT 45.7 08/07/2021 CHLPL 114 12/27/2019 TRIG 102 12/27/2019 HDL 38 12/27/2019 LDLCHOL 56 12/27/2019 ALT 8 2021 AST 11 2021 NA 138 08/07/2021 K 4.4 08/07/2021 CL 100 08/07/2021 CREATININE 0.91 08/07/2021 TSH 2.40 2021 INR 1.0 07/03/2020 HA1C 5.6 2021 documented in this encounter Plan of Treatment Not on file documented as of this encounter Visit Diagnoses Diagnosis Cervicalgia Chronic pain syndrome documented in this encounter Care Teams Bulk Mail Technician Relationship Specialty Start Date End Date Hoang Castellanos, MEDICAL TECHNOLOGIST PRN [address] [place] [address] PCP - General Family Medicine 03/12/20 documented as of this encounter
--- OUTSIDE RECORDS SUMMARY | 2024-02-22 00:49 | XMS_ITS | Encounter Summary ---
Author Organization [facility] [place] [address] Care Team Providers Care Sales Compensation Analyst Name Role Phone Hoang Castellanos APRN Primary Care Provider Reason for Visit * Reason Comments Medication Refill Encounter Details Date Type Department Care Team (Late st Contact Info) Description 06/16/2021 Refill Primary Care at [facility] [address] [facility] [place] [phone] Hoang Castellanos APRN [address] [place] [address] Cervicalgia; Chronic pain syndrome Social History Tobacco [...] Notes * Telephone Encounter - Maria D Joshi, [facility] - 06/16/2021 1:29 PM EST Medication name: Tizanidine Last Prescription Fill Date: 05/20/21 Number Dispensed and Refills: Last Related Office Visit: 06/09/21 Upcoming Appointment: 08/31/2021 No flowsheet data found. Lab Results Component Value Date HGB 14.4 2021 HCT 44.1 2021 CHLPL 114 12/27/2019 TRIG 102 12/27/2019 HDL 38 12/27/2019 LDLCHOL 56 12/27/2019 ALT 8 2021 AST 11 2021 NA 139 2021 K 4.2 2021 CL 101 2021 CREATININE 0.70 2021 TSH 2.40 2021 INR 1.0 07/03/2020 HA1C 5.6 2021 documented in this encounter Plan of Treatment Not on file documented as of this encounter Visit Diagnoses Diagnosis Cervicalgia Chronic pain syndrome documented in this encounter Care Teams Sales Compensation Analyst Relationship Specialty Start Date End Date Hoang Castellanos APRN [address] [place] [address] PCP - General Family Medicine 03/12/20 documented as of this encounter
--- OUTSIDE RECORDS SUMMARY | 2024-02-22 00:49 | XMS_ITS | Encounter Summary ---
Author Organization [facility] [place] [address] Care Team Providers Care Combination Machine Tender Name Role Phone Hoang Castellanos APRN Primary Care Provider Reason for Visit * Reason Onset Date Comments Medication Refill 09/28/2021 Encounter Details Date Type Department Care Team (Late st Contact Info) Description 09/28/2021 Refill Primary Care at [facility] [address] [facility] [place] [address] Hoang Castellanos APRN [address] [place] [address] Social History Tobacco Use Types Packs/Day Years [...] Encounter - Maria D Joshi CCMA - 09/28/2021 2:58 PM EST Medication name: Prazosin Last Prescription Fill Date: 10/31/20 Number Dispensed and Refills: 84/11 Last Related Office Visit: 03/23/21 Upcoming Appointment: Visit date not found No [...] on filedocumented in this encounter Care Teams Combination Machine Tender Relationship Specialty Start Date End Date Hoang Castellanos, SHEETMETAL PATTERNMAKER [address] [place] [address] PCP - General Family Medicine 03/12/20 documented as of this encounter
--- OUTSIDE RECORDS SUMMARY | 2024-02-22 00:49 | XMS_ITS | Encounter Summary ---
Author Organization [facility]ly [facility] [place] [address] Care Team Providers Care Toxicologist Name Role Phone Hoang Castellanos APRN Primary Care Provider Reason for Visit * Reason Comments Medication Refill Encounter Details Date Type Department Care Team (Late st Contact Info) Description 09/01/2021 Refill Primary Care at [facility] [address] [place] [phone] Hoang Castellanos APRN [address] [facility] [facility] [place] [address] Benign essential hypertension; Hyperlipidemia, unspecified hyperlipidemia type; Gastroesophageal reflux disease Social History Tobacco Use Types Packs/Day Years [...] encounter Miscellaneous Notes * Telephone Encounter - Alva Castellanos LPN - 09/01/2021 12:45 PM EST Last Prescription Fill Date: 10/02/2020 Number Dispensed and Refills: Last Related Office Visit: 2021 Upcoming Appointment: Visit date not found Requested Prescriptions Pending Prescriptions Disp Refills ??? amLODIPine (Norvasc) 5 mg Tablet [Pharmacy Med Name: amLODIPine Besylate 5 MG Tablet] 28 bpbooh30 Sig: TAKE ONE (1) TABLET BY MOUTH EVERY DAY ??? atorvastatin (Lipitor) 40 mg Tablet [Pharmacy Med Name: Atorvastatin Calcium 40 MG Tablet] 28 tablet 11 Sig: TAKE ONE (1) TABLET BY MOUTH EVERY DAY ??? omeprazole (PriLOSEC) 20 mg Capsule, Delayed Release(E.C.) [Pharmacy Med Name: Omeprazole 20 MGCapsule delayed release] 56 capsule 11 Sig: TAKE ONE (1) CAPSULE BY MOUTH TWICE A DAY 30 MIN BEFORE BREKAFAST AND IN THE EVENING No flowsheet data found. Lab Results Component [...] as of this encounter Visit Diagnoses Diagnosis Benign essential hypertension Essential hypertension, benign Hyperlipidemia, unspecified hyperlipidemia type Gastroesophageal reflux disease Esophageal reflux documented in this encounter Care Teams Toxicologist Relationship Specialty Start Date End Date Hoang Castellanos, PRINCIPAL MILITARY ANALYST [address] [place] [address] PCP - General Family Medicine 03/12/20 documented as of this encounter
--- OUTSIDE RECORDS SUMMARY | 2024-02-22 00:49 | XMS_ITS | Encounter Summary ---
[place] [address] Care Team Providers Care Grove Worker Name Role Phone Hoang Castellanos APRN Primary Care Provider Encounter Details Date Type Department Care Team (Late st Contact Info) Description 10/05/2021 [place]phone [place] [address] Tamar Velazquez Social History Tobacco Use Types Packs/Day Years [...] encounter Miscellaneous Notes * Telephone Encounter - Tamar Velazquez - 10/05/2021 1:50 PM EDT 1. ASK: TRAVEL ???Have you travelled outside of [place] ([place], [place], [place], [place], [place], [place]) in the past 14 days??? 2. ASK: EXPOSURE Have you been in contact with anyone suspected or confirmed to have COVID-19 in the past 14 days??? 3. ASK: SYMPTOMS Do you have any new or worsening symptoms on this list that are not related to another medical condition? Fever or chills ?? Cough ?? Shortness of breath or difficulty breathing ?? Fatigue ?? Muscle or body aches ?? Headache ?? Loss of taste or smell ?? Sore throat ?? Congestion or runny nose ?? Nausea or vomiting ?? Diarrhea If 'Yes' to any of the questions above Transfer patient to the Covid-19 Hotline Number ([phone]) for further instructions. If 'No' to all of the questions above Is this the first test for Covid 19 If no, please list date of previous test, result, and type of test (Molecular, Antigen, Antibody orunknown): Resides in Nursing/retirement or other residential setting No Employee or Household Member of Employee No Healthcare Worker No Telephone call placed/received to schedule Covid 19 testing with patient. Ordering provider: Campos Puente Testing Facility: Date of Testin/05 Time of Testin:30 Symptoms: pre-op Give directions to testing facility. All passengers in the vehicle MUST wear a mask. Leave dogs/pets at home or have them crated/behind a net. documented in this encounter Plan of Treatment Not on file documented as of this encounter Visit Diagnoses Not on filedocumented in this encounter Care Teams Grove Worker Relationship Specialty Start Date End Date Hoang Castellanos APRN [address] [place] [address] PCP - General Family Medicine 03/12/20 documented as of this encounter
--- OUTSIDE RECORDS SUMMARY | 2024-02-22 00:49 | XMS_ITS | Encounter Summary ---
Author Organization [facility] [place] [address] Care Team Providers Care Student Life Vice President Name Role Phone Hoang Castellanos APRN Primary Care Provider Reason for Visit * Reason Onset Date Comments Other 06/22/2021 Encounter Details Date Type Department Care Team ([facility] st Contact Info) Description 06/22/2021 [place] [phone] Gurjit Bass MD [address] [place] [address] Other Social History Tobacco Use Types Packs/Day Years [...] encounter Miscellaneous Notes * Telephone Encounter - Bárbara Moreau RN - 06/22/2021 3:14 PM EST Called patient and let her know that, yes, she did need the MRI and she needed to arrive on time. MRI was needed before surgery. * Telephone Encounter - Bárbara Moreau RN - 06/22/2021 3:07 PM EST Called number provided and spoke with patient named Gianni. No one there by the name of Angela. * Telephone Encounter - Nisreen Miller - 06/22/2021 11:56 AM EST Call Center / [facility] Message - General Issue Call Provider patient sees in Clinic: Gurjit Bass Caller and relationship (if other than patient-full name): Angela Company and position if other than patient or family: n Call back number: [phone] Ok to leave a message: y Reason for call: Angela states patient has upcoming MRI on 06/24and wants to verify with the provider if this needs to be done before the surgery on 07/03 . Please call Angela back to verify. Disposition of Call (choose one and remove others): ??? Red Arrow Message Reason red arrow Message: n ??? Routine Message sent to the Nurse: y ??? Routine message sent to [facility]: n Nurse/Die Press Operator contacted via: Message: y Call: n Pager: n documented in this encounter Plan of Treatment Not on file documented as of this encounter Visit Diagnoses Not on filedocumented in this encounter Care Teams Student Life Vice President Relationship Specialty Start Date End Date Hoang Castellanos, ALL ROUND BUTCHER [address] [place] [address] PCP - General Family Medicine 03/12/20 documented as of this encounter
--- OUTSIDE RECORDS SUMMARY | 2024-02-22 00:49 | XMS_ITS | Encounter Summary ---
Author Organization [facility] [place] [address] Care Team Providers Care Booking Supervisor Name Role Phone Hoang Castellanos APRN Primary Care Provider Encounter Details Date Type Department Care Team (Latest Contact Info) Description 2021 10:50 AM EDT Laboratory Appointment Laboratory at [facility] [address] [place] [id number] Seizures; Myelopathy; Bipolar affective disorder, remission status unspecified; Type 2 diabetes mellitus without complication, without long-term current use of insulin Social History Tobacco Use Types Packs/Day Years [...] Name Priority Date/Time Associated Diagnosis Comments HC LYME DISEASE, CHRISTIE Routine 10:54 AM EDT Seizures Myelopathy Bipolar affective disorder, remission status unspecified HC PCH LAMOTRIGINE Routine 2021 10 :54 AM EDT Seizures Myelopathy Bipolar affective disorder, remission status unspecified HC HEMOGRAM Routine 2021 10:54 AM EDT Seizures Myelopathy Bipolar affective disorder, remission status unspecified DIFFERENTIAL, AUTOMATED Routine 2021 10:54 AM EDT Seizures Myelopathy Bipolar affective disorder, remission status unspecified CBC (WITH DIFF) Routine 2021 10:54 AM EDT Seizures Myelopathy Bipolar affective disorder, remission status unspecified HC THYROID STIMULATING HORMONE, SERUM Routine 2021 10:54 AM EDT Seizures Myelopathy Bipolar affective disorder, remission status unspecified HC TOTAL T4 Routine 2021 10:54 AM EDT Seizures Myelopathy Bipolar affective disorder, remission status unspecified HC HEMOGLOBIN A1C Routine 2021 10: 54 AM EDT Type 2 diabetes mellitus without complication, without long-term current use of insulin HC VITAMIN B12 SERUM Routine 2021 10:54 AM EDT Seizures Myelopathy Bipolar affective disorder, remission status unspecified COMPREHENSIVE METABOLIC PANEL (NON-FASTING) Routine 2021 10:54 AM EDT Seizures Myelopathy Bipolar affective disorder, remission status unspecified documented in this encounter Results * Differential, Automated (2021 10:54 AM EDT) Neutrophils % 72.5 % [facility] Neutr Abs (ANC) 5.56 1.70 - 6.10 x10(3)/mcL [facility] Lymphocytes % 18.1 % [facility] Lymphocytes Abs 1.4 0.9 - 3.2 x10(3)/mcL [facility] Monocytes % 8.0 % [facility] Monocyte Abs 0.6 0.3 - 0.9 x10(3)/mcL [facility] Eosinophils % 0.8 % [facility] Eosinophils Abs 0.1 0.0 - 0.4 x10(3)/mcL [facility] Basophils % 0.5 % [facility] Basophils Abs 0.0 0.0 - 0.1 x10(3)/[facility] Immature Gran % 0.10 % [facility] Comment: Immature granulocytes(IG's)percentage and absolute count will include metamyelocytes, myelocytes, and promyelocytes. Blood smears from CBCs yielding IG's will be scanned manually for concordance. If this scan disagrees with the automated IG or if promyelocytes are noted, a manual differential will be performed. Fartun Gran Abs 0.01 0.00 - 0.04 x10(3)/[facility] Blood 2021 10:5 4 AM EDT 2021 11:55 AM EDT Narrative Resulting Agency Comment Spec In Lab Gurjit Bass MD HEMATOLOGY ORDERABLE S Performing Organization Address City/[facility]/ZIP Co de Phone Number LABORATORY [address] [place] [address] * Hemoglobin A1c (2021 10:54 AM EDT) Hemoglobin A1C 5.6 4.3 - 5.6 % [facility] Est Avg Gluc 114 mg/dL [facility] Blood 2021 10:5 4 AM EDT 2021 11:55 AM EDT Narrative Resulting Agency Comment Spec In Lab Hoang Castellanos APRN CHEMISTRY ORDERABLES [facility] [address] [place] [address] * Lamotrigine Lvl (2021 10:54 AM EDT) Lamotrigine Lvl 3.7 2.5 - 15.0 mcg/mL [facility] Comment: ADDITIONAL INFORMATION This test was developed and its performance characteristics determined by [facility] in a manner consistent with CLIA requirements. This test has not been cleared or approved by the U.S. Food and Drug Administration. Test Performed by: [facility] [address] [place] [address] Industrial Chemistry Teacher: Skinny Reyes M.D. Ph.D.; CLIA# [id number] Blood 2021 10:5 4 AM EDT 2021 4:54 PM EDT Narrative Resulting Agency Comment Spec In Lab Gurjit Bass MD CHEMISTRY ORDERABLES Performing Organization Address [facility]/ZIP Co de Phone Number [facility] [address] [place] [address] * Vitamin B12 (2021 10:54 AM EDT) [facility] Vitamin B-12 1,017 232 - 1,245 pg/mL [facility] Blood 2021 10:5 4 AM EDT 2021 4:48 PM EDT Narrative Resulting Agency Comment Spec In Lab Gurjit Bass MD CHEMISTRY ORDERABLES Performing Organization Address [facility] Co de Phone Number [facility] [place] [address] * (ABNORMAL) Comprehensive metabolic panel (non-fasting) (2021 10:54 AM EDT) Glucose Lvl 90 65 - 199 mg/dL [facility] Comment:Diabetes: >=200 mg/d L plus symptoms BUN 19(H) 8 - 18 mg/dL [facility] Creatinine 0.70 0.70 - 1.20 mg/dL [facility] Sodium 139 135 - 145 mmol/L [facility] Potassium 4.2 3.5 - 5.0 mmol/L [facility] Comment: Please note: ??Patients with WBC >100,000 may have falsely elevated Potassium levels. ??For accurate Potassium quantification in these patients send serum separator tube (gold top) for subsequent determinations. ??Contact the Clinical Chemistry Laboratory if there are any questions. Chloride 101 98 - 107 mmol/L [facility] CO2 26 22 - 31 mmol/L [facility] Anion Gap 12 5 - 15 mmol/L [facility] Calcium 9.8 8.5 - 10.5 mg/dL [facility] Total Protein 6.9 6.1 - 8.0 g/dL [facility] Albumin 4.1 3.2 - 5.2 g/dL [facility] AST 11 0 - 30 unit/L [facility] ALT 8 0 - 30 unit/L [facility] Alk Phos 125(H) 35 - 105 unit/L [facility] Total Bilirubin 0.3 0.2 - 1.3 mg/dL [facility] Estimated GFR 94 >=60 mL/min/1. 73 m?? [facility] Comment: This patient? s estimated glomerular filtration rate (eGFR) is between 94 mL/min/1.73 m2 (patients with less muscle mass per kg body weight) and 108 mL/min/1.73 m2 (patients with more muscle mass per kg body weight) as determined by the CKD-EPI equation. Assessment [...] and symptoms in addition to eGFR. Blood 2021 10:5 4 AM EDT 2021 11:55 AM EDT Narrative Resulting Agency Comment Spec In Lab Gurjit Bass MD CHEMISTRY ORDERABLES [facility] [address] [place] [address] * T4 Total (2021 10:54 AM EDT) T4, total 8.2 5.3 - 11.6 mcg/dL [facility] Comment: Reference Interval (mcg/dL): Females: ??First Trimester: 6.3-13.5 ??Second Trimester: 7.1-14.3 ??Third Trimester: 6.9-14.1 Blood 2021 10:5 4 AM EDT 2021 11:55 AM EDT Narrative Resulting Agency Comment Spec In Lab Gurijt Bass MD CHEMISTRY ORDERABLES Performing Organization Address [facility] Co de Phone Number [facility] [address] [place] [address] * TSH (2021 10:54 AM EDT) Pathologist [facility] TSH 2.40 0.27 - 4.20 mcIU/mL [facility] Comment: Reference Interval (mcIU/mL): Females: ??First Trimester: 0.23-3.88 ??Second Trimester: 0.22-3.90 ??Third Trimester: 0.44-4.66 Blood 2021 10:5 4 AM EDT 2021 11:55 AM EDT Narrative Resulting Agency Comment Spec In Lab Gurjit Bass MD CHEMISTRY ORDERABLES Performing Organization Address [facility] Co de Phone Number [facility] [address] [place] [address] * Lyme IgG & IgM Antibody (2021 10:54 AM EDT) Pathologist [facility] Lyme Screening Antibody Neg Neg [facility] Blood 2021 10:5 4 AM EDT 05/28/2021 6:53 AM EDT Narrative Resulting Agency Comment Spec In Lab Gurjit Bass MD IMMUNOLOGY ORDERABLE S Performing Organization Address [facility] Co de Phone Number [facility] [place] [address] * (ABNORMAL) Hemogram (2021 10:54 AM EDT) WBC 7.7 4.0 - 9.5 x10(3)/mcL [facility] RBC 4.64 4.00 - 5.21 x10(6)/mcL [facility] Hemoglobin 14.4 11.7 - 15.5 g/dL [facility] Hematocrit 44.1 35.7 - 45.8 % [facility] MCV 95.0(H) 82.6 - 94.4 fL [facility] MCH 31.0 27.1 - 32.0 pg [facility] MCHC 32.7 31.7 - 35.0 g/dL [facility] Platelets 208 145 - 357 x10(3)/mcL [facility] RDWSD 47.3(H) 37.0 - 46.0 fL [facility] RDWCV 13.3 11.5 - 14.1 % [facility] MPV 9.6 7.6 - 12.9 fL [facility] Blood 2021 10:5 4 AM EDT 2021 11:55 AM EDT Narrative Resulting Agency Comment Spec In Lab Gurjit Bass MD HEMATOLOGY ORDERABLE S LABORATORY [address] [place] [address] documented in this encounter Visit Diagnoses Diagnosis Seizures Other convulsions Myelopathy Unspecified disease of spinal cord Bipolar affective disorder, remission status unspecified Type 2 diabetes mellitus without complication, without long-term current use of insulin documented in this encounter Care Teams Booking Supervisor Relationship Specialty Start Date End Date Hoang Castellanos, CORKING MACHINE OPERATOR [address] [facility] [facility] [address] [place] [address] PCP - General Family Medicine 03/12/20 documented as of this encounter
--- OUTSIDE RECORDS SUMMARY | 2024-02-22 00:49 | XMS_ITS | Encounter Summary ---
[facility] [address] Care Team Providers Care Manager Union Name Role Phone Hoang Castellanos APRN Primary Care Provider Reason for Visit * Reason Onset Date Comments TeleHealth 06/04/2021 Encounter Details Date Type Department Care Team (Late st Contact Info) Description 06/04/2021 Telephone [place] [address] Campos Puente MD [facility] [place] [address] TeleHealth Social History Tobacco Use Types Packs/Day Years [...] encounter Miscellaneous Notes * Telephone Encounter - Prudence Graff RN - 06/04/2021 3:40 PM EST Spoke to this patient by phone to review their medications and allergies prior to their upcoming tele-appointment with the Neurosurgery provider. Medications and allergies reviewed, verified and updated as needed. documented in this encounter Plan of Treatment Not on file documented as of this encounter Visit Diagnoses Not on filedocumented in this encounter Care Teams Manager Union Relationship Specialty Start Date End Date Hoang Castellanos, SAM [address] [place] [address] PCP - General Family Medicine 03/12/20 documented as of this encounter
--- OUTSIDE RECORDS SUMMARY | 2024-02-22 00:49 | XMS_ITS | Encounter Summary ---
[place] [address] Care Team Providers Care Starchmaker Name Role Phone Hoang Castellanos APRN Primary Care Provider Encounter Details Date Type Department Care Team (Late st Contact Info) Description 06/15/2021 Telephone [place] [address] Sheree Escalante Social History Tobacco Use Types Packs/Day Years [...] encounter Miscellaneous Notes * Telephone Encounter - Sheree Escalante - 06/15/2021 9:01 AM EST Ms. Rico stated she has been able to cut down to a two or three cigarettes per day. She is usingthe nicotine gum which she prefers over other products. She has lozenges and states that the gum lasts longer than lozenges which is more satisfying. Ms. Rico stated she appreciates the support and feels as though she can get over the last few cigarettes. She has found a supportive network of people who have been encouraging. She is agreeable to gettingmore walking exercise. I will send a box of nicotine gum to Ms. Rico and asked her to shop for more at a box store or on line so she doesn't run out. We will talk again on Tuesday, 06/22. documented in this encounter Plan of Treatment Not on file documented as of this encounter Visit Diagnoses Not on filedocumented in this encounter Care Teams Starchmaker Relationship Specialty Start Date End Date Hoang Castellanos, HAND BOOTMAKER [address] [place] [address] PCP - General Family Medicine 03/12/20 documented as of this encounter
--- OUTSIDE RECORDS SUMMARY | 2024-02-22 00:49 | XMS_ITS | Encounter Summary ---
Author Organization [facility] [place] [address] Care Team Providers Care Cold Type Artist Name Role Phone Hoang Castellanos APRN Primary Care Provider Reason for Visit * Reason Comments Medication Refill Encounter Details Date Type Department Care Team (Late st Contact Info) Description 06/05/2021 Refill Primary Care at [facility] [address] [place] [id number] Hoang Castellanos APRN [address] [facility] [address] Social History Tobacco Use Types Packs/Day Years [...] Miscellaneous Notes * Telephone Encounter - Meena Galloway CCMA - 06/08/2021 2:18 PM EST Levothyroxine 50 mcg Last Prescription Fill Date: 07/16/2020 Number Dispensed and Refills: 90/3 Last Related Office Visit: 03/23/2021 Upcoming Appointment: 08/31/2021 Lab Results Component Value Date HGB 14.4 [...] on filedocumented in this encounter Care Teams Cold Type Artist Relationship Specialty Start Date End Date Hoang Castellanos APRN [address] [place] [address] PCP - General Family Medicine 03/12/20 documented as of this encounter
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
--- OUTSIDE RECORDS SUMMARY | 2024-02-22 00:49 | XMS_ITS | Encounter Summary ---
[place] [address] Care Team Providers Care Acid Conditioning Worker Name Role Phone Hoang Castellanos APRN Primary Care Provider Encounter Details Date Type Department Care Team (Late st Contact Info) Description 06/08/2021 [place]phone [place] [address] Sheree Escalante Social History Tobacco Use Types [...] * Telephone Encounter - Sheree Escalante - 06/08/2021 9:03 AM EST Sheere Escalante, [place]TT[place] [address] [email or web address] HPI: Jeannie Rico is a 61 y.o. female who is being seen today for tobacco cessation. Date: 06/08/2021 Name: Jeannie Rico Date of : 1960 Patient Active Problem List Diagnosis Date Noted ??? Cataract of right eye 12/17/2020 ??? Right leg weakness 12/17/2020 ??? Chronic pain of right ankle 12/17/2020 ??? Bilateral leg edema 12/17/2020 ??? Vitamin D deficiency 10/16/2020 ??? Vitamin B12 deficiency 10/16/2020 ??? Generalized weakness 03/12/2020 ??? Asthma 08/02/2019 ??? Benign essential hypertension 08/02/2019 ??? Bulimia 08/02/2019 ??? Chronic obstructive pulmonary disease 08/02/2019 ??? Constipation 08/02/2019 ??? Diabetes mellitus, type II 08/02/2019 ??? Dizziness 08/02/2019 ??? Hyperlipidemia 08/02/2019 ??? Obstructive sleep apnea (adult) (pediatric) 08/02/2019 ??? Osteoarthrosis 08/02/2019 ??? Seizures 08/02/2019 ??? Coronary artery disease 08/02/2019 ??? Headache 08/02/2019 ??? Bipolar disorder 08/02/2019 ??? Low back pain 08/02/2019 ??? Hypothyroidism, acquired 08/02/2019 ??? Borderline personality disorder 11/06/2018 ??? Osteoporosis 02/02/2016 ??? Smokes cigarettes 05/09/2013 ??? GERD (gastroesophageal reflux disease) 05/09/2013 ??? Anxiety 05/09/2013 ??? Depression 05/09/2013 ??? Post traumatic stress disorder (PTSD) 05/09/2013 ??? Hidradenitis suppurativa 05/09/2013 ??? Chronic pain ??? Cervicalgia ??? Lumbago Past Medical History: Diagnosis Date ??? Depression ??? Diabetes mellitus ??? Hypertension ??? Obesity, S/P remote gastric bypass in 1995, prior VBG 05/09/2013 ??? Osteoporosis ??? Suicide attempt 08/02/2019 ??? Thyroid disease Past Surgical History: Procedure Laterality Date ??? CHOLECYSTECTOMY, OPEN 1992 ??? CORONARY ANGIOPLASTY WITH STENT PLACEMENT 2013 stent to LAD ??? CREATED BY INTERFACE a carotid bypass Procedure Date: Unknown ??? DENTAL SURGERY 1998 complete dental extractions ??? GASTRIC BYPASS SURGERY 05/05/2000 open, non-divided. Dr Trejo ??? HYSTERECTOMY, TOTAL ABDOMINAL 1985 ??? LIPECTOMY 2001 ??? PRO UPPER GI ENDOSCOPY, BIOPSY N/A 12/03/2015 EGD WITH BIOPSY performed by Ken Sanders MD at [facility] ENDOSCOPY ??? PRO UPPER GI ENDOSCOPY, BIOPSY N/A 09/19/2018 UPPER GASTROINTESTINAL ENDOSCOPY,WITH BIOPSY SINGLE OR MULTIPLE (WRVU 2.49) performed by Tyron Mercado MD at [facility] ENDOSCOPY ??? TONSILLECTOMY ??? UPPER GI ENDOSCOPY, EXAM 12/04/2010 UPPER GI ENDOSCOPY performed by DEE WRIGHT at [facility] ENDOSCOPY Current Outpatient Medications on File Prior to Visit Medication Sig Dispense Refill ??? clonazePAM (KlonoPIN) 0.5 mg Tablet Take 0.5 mg by mouth daily as needed. ??? Acidophilus Capsule Take 1 tablet by mouth daily. ??? nicotine polacrilex (Nicorette) 2 mg Gum Take 1 each by mouth every 4 hours as needed for Smoking cessation (may alternate with lozenges). 100 each 5 ??? nicotine polacrilex (Commit) [address] 1 lozenge inside cheek every 4 hours as needed for Smoking cessation (may alternative with gum). 100 tablet 3 ??? tiZANidine (Zanaflex) 4 mg Tablet Take 1 tablet by mouth every 6 hours as needed. 30 tablet 0 ??? Advair Diskus 500-50 mcg/dose Disk with Device USE 1 INHALATION TWICE A DAY 60 each 11 ??? lisinopriL (Zestril) 40 mg Tablet TAKE ONE (1) TABLET BY MOUTH EVERY DAY 28 tablet 11 ??? alendronate (Fosamax) 70 mg Tablet Take [...] MOUTH EVERY DAY 28 tablet 11 ??? FeroSuL 325 mg (65 mg iron) Tablet TAKE ONE (1) TABLET BY MOUTH THREE TIMES A WEEK 12 tablet 11 ??? prazosin (Minipress) 2 mg Capsule TAKE [...] IN THE EVENING 56 capsule 11 ??? lamoTRIgine (LaMICtal) 200 mg Tablet Take [...] 30 tablet 1 ??? Miscellaneous Medical Supply [facility] 1 walker on wheels with seat 1 each 0 ??? ibuprofen (Advil;Motrin) 800 mg Tablet Take 1 tablet by mouth every 8 hours as needed for Pain.90 tablet 5 ??? sertraline (ZOLOFT) 100 mg Tablet Take 2 tablets by mouth 2 times daily. ??? multivitamin (THERAGRAN) Tablet Take 1 tablet by mouth daily. ??? lancets 30 gauge Misc 1 each by Misc.(Non-Drug; Combo Route) route daily. 100 each 3 ??? ARIPiprazole (Abilify) 5 mg Tablet Take 5 mg by mouth daily. ??? alum-mag hydroxide-simeth (Maalox) 200-200-20 mg/5 mL Suspension Take 10 mLs by mouth every 6 hours as needed for Indigestion. ??? MARIJUANA ORAL Take by mouth. No current facility-administered medications on file prior to visit. Allergies Allergen Reactions ??? Morphine Shortness Of Breath ??? Sumatriptan Hives ??? Oxycodone Other (See Comments) drunk feeling, dizzy ??? Oxycodone-Acetaminophen Other (See Comments) dizziness, feels drunk ??? Chantix [Varenicline] psychotic ??? Imitrex [Sumatriptan Succinate] Hives ??? Prednisone Other reaction(s): aggitation Social History Tobacco Use ??? Smoking status: Current Every Day Smoker Packs/day: 2.00 Years: 50.00 Pack years: 100.00 Types: Cigarettes ??? Smokeless tobacco: Never Used Substance Use Topics ??? Alcohol use: No Comment: not drank in 24 years Family History Problem Relation Age of Onset [...] Neoplasm, Benign ??? Breast Cancer Neg Hx Type of tobacco used: () Smokeless tobacco () e-cigarette () Cigarettes X Brand currently smoking:roll your own Current amount: 8 cpd Cost per pack: 25.00 a month Age initiated: 11 yrs Years smoked: 50 Previous quit attempts and methods: 8 months Most recent quit attempt: 8 or 9 years Are there other smokers in the home:yes Are there children in the home:NO smoking outside What will be different this time: why because of surgery Positive aspects of smoking: big stress reliever Negative aspects of smoking: causes coughing/smells bad Reasons for quitting: Needs surgery Concerns about quitting: no Concerns about weight gain: not really Triggers for smoking: stress Ready to set a quit date: wants to be quit by Tuesday. Readiness: Importance scale:10 Confidence scale: 9 Support systems include: family Stage of Change: Precontemplation: Contemplation: Preparation: X Action: Maintenance: NICOTINE DEPENDENCE 0 Points 1Points 2 Points 3 Points Score 1.How soon after waking do you smoke your first cigarette? After 60 minutes 31- 60 minutes minutes 6-30 minutes Within 5 minutes 2 2. Do you find it difficult to refrain from smoking in places where it is forbidden? (ex. denominational) No Yes 0 3. Which cigarette would you hate to give up? All others The first one in the morning 1 4. How many cigarette do you smoke a day? 10 or less 11-20 21-30 30 or more 0/3 Do you smoke more frequently during the first hour after waking than the rest of the day? No Yes 1 6. Do you smoke if you are so ill that you are in bed all day? 0 Classification: 4/Low 0-2 Very low 3-4 Low 5 Moderate 6-7 High 8-10 Very high Assessment/Plan: Ms. Rico has a Fagerstrom Score of4 indicating a low dependence on Nicotine. I reviewed the physiology of addiction as well as apparent health risks specific to the patient. I discussed the options for treatment including NRT, Zyban and Chantix. I reviewed possible side effects of therapy. I stressed that medication alone is not optimum but used in conjunction with behavioral counseling will add to success for cessation. The patient decided that the best course of action is to try using the nicotine gum and nicotine lozenges. IThe patient will be on the gum or lozenges for two weeks or longer If at any point after tapering the patient has an increased craving they should go back to the higher dose for another two weeks then try to decrease again. I instructed Ms. Rico in the correct use of the Nicotine lozenge and explained that the nicotinewould be absorbed through the mucous membranes of the mouth, at a specific pH or acidity. Thereforethey should not eat or drink anything except water for 15 minutes before or during use of the lozenge or the nicotine would not be absorbed and the medication won't help . The patient understands it should not be chewed or swallowed whole or in pieces. The maximum number of lozenges to be used in [facility] is 20. Most people who use the Nicotine patch plus lozenges generally use about 4-5 lozenges a day. The patient has been instructed to use the lozenge upon awakening, 30 minutes before meals and at bedtime at a minimum. It can also be used every 1-2 hours in between. The lozenge should be used when there is a strong urge to smoke, instead of smoking. I reviewed several tips for helping with quitting including the 4 D's, using straws cut the length of cigarettes, cinnamon sticks, flavored toothpicks, sugar free candy, etc. We discussed the importance of exercise, especially walking. Support systems include: family The patient has been provided with a [facility] Smoking Cessation packet. The patient has my card with mycontact information and has been encouraged to call with additional questions or concerns. The patient also has the Quit line number and the smokefree txt information. Patient has been advised to contact me if any unusual symptoms occur. A follow up clinic appointment has been made for 06/15/21. CO Monitor Reading First Visit Subsequent visit deferred (phone consult) I also discussed the meaning of elevated CO measurements and explained that this level would returnto normal within 24-48 hours of quitting smoking. Next steps: Recommended that Ms. Rico consult with doctor about getting generic varenicline.which was recently approved by the FDA. Ms Rico is very interested. Sheree Escalante 06/08/21 Tobacco Treatment Program [facility] documented in this encounter Plan of Treatment Not on file documented as of this encounter Visit Diagnoses Not on filedocumented in this encounter Care Teams Acid Conditioning Worker Relationship Specialty Start Date End Date Hoang Castellanos APRN [address] [place] [address] PCP - General Family Medicine 03/12/20 documented as of this encounter
--- OUTSIDE RECORDS SUMMARY | 2024-02-22 00:49 | XMS_ITS | Encounter Summary ---
Author Organization [facility] [place] [address] Care Team Providers Care Warehouse Freight Handler Name Role Phone Hoang Castellanos APRN Primary Care Provider Reason for Visit * Reason Comments Medication Refill Encounter Details Date Type Department Care Team (Late st Contact Info) Description 09/28/2021 Refill Primary Care at [facility] [address] [place] [id number] Hoang Castellanos APRN [address] [place] [address] Social History Tobacco Use Types Packs/Day Years [...] * Telephone Encounter - Maria D Joshi [facility] - 09/28/2021 1:19 PM EST Medication name: Prazosin Last Prescription [...] on filedocumented in this encounter Care Teams Warehouse Freight Handler Relationship Specialty Start Date End Date Hoang Castellanos, FREIGHT SOLICITOR [address] [place] [address] PCP - General Family Medicine 03/12/20 documented as of this encounter
--- OUTSIDE RECORDS SUMMARY | 2024-02-22 00:49 | XMS_ITS | Encounter Summary ---
[place] [address] Care Team Providers Care Junior Art Director Name Role Phone Hoang Castellanos APRN Primary Care Provider Encounter Details Date Type Department Care Team (Late st Contact Info) Description 05/26/2021 [place] [address] Hiral Jose Social History Tobacco Use Types Packs/Day Years Used Date Smoking Tobacco: Every Day Cigarettes 1.5 45 Smokeless Tobacco: Never Alcohol Use Standard Drinks/Week Comments No 0 (1 standard drink = 0.6 oz pur e alcohol) not drank in 24 years Sex and Gender Information Value Date Recorded Sex Assigned at Not on file Gender Identity Not on file Sexual Orientation Not on file documented as of this encounter Miscellaneous Notes * Telephone Encounter - Hiral Jose - 05/26/2021 9:02 AM EDT Left message to schedule surgery with Dr. Puente documented in this encounter Plan of Treatment Not on file documented as of this encounter Visit Diagnoses Not on filedocumented in this encounter Care Teams Junior Art Director Relationship Specialty Start Date End Date Hoang Castellanos APRN [address] [place] [address] PCP - General Family Medicine 03/12/20 documented as of this encounter
--- OUTSIDE RECORDS SUMMARY | 2024-02-22 00:49 | XMS_ITS | Encounter Summary ---
Author Organization [facility] Address [facility] [place] [address] Care Team Providers Care Bariatric Nurse Name Role Phone Hoang Castellanos APRN Primary [...] Expiration Date Visits Re quested Visits Authorized [id number] 1 1 Encounter Details Date Type Department Care Team (Late st Contact Info) Description 10/30/2021 8:45 AM EDT Anesthesia [place] [address] Pat Leblanc MD [facility] [address] [place] [address] Evelia Dickerson [place] [address] Anesthesia Record Procedure Summary Procedure Name Responsible Anesthesiologist Anesthesia Start Time Anesthesia Stop Time @ARTHRODESIS, POSTERIOR CERVICAL SPINE (WRVU 17.4) (Spine Cervical) Pat Leblanc MD 10/30/21 0845 10/30/21 1403 Events Date Time Event Comment 10/30/2021 0832 0845 AN Verify 0845 Start 0845 An Start Data 0855 An Induction 0856 An Intubation 0915 Anesthesia Ready 1044 Procedure Start 1147 Break/Relief In I assumed ca re for Break Relief before which we: 1. Identified the patient 2. Identified the responsible provider(s) 3. Reviewed the pertinent medical history 4. Discussed the surgical plan and course 5. Reviewed intra-op anesthesia management and issues during anesthesia 6. Set expectations for the relief (and/or post-procedure) period 7. Allowed opportunity for questions and acknowledgement of understanding Yolanda Melendez CRNA 1217 Break/Relief Out 1344 Extubation/LMA Out 1351 an stop data 1403 Recovery or ICU Handoff Liana ent care was transferred to the destination unit staff after review of the patient's medical history, current anesthetic/surgical status and plan, according to the Provider Handoff Checklist. 1403 Stop Meds Name Total Midazolam 2 mg fentaNYL 100 mcg IV Lidocaine 100 mg Propofol 250 mg Rocuronium 30 mg PHENYLephrine 120 mcg Ondansetron 4 mg HYDROmorphone 2 mg/mL 0.8 mg Succinylcholine 100 mg ceFAZolin (Ancef) 2 g in dextrose 5% 100 mL infusion 4 g Propofol INF 2,076.63 mg REMIfentanil INF 4.03 mg Ketamine 10 mg/mL 30 mg PHENYLephrine INF 1,770 mcg ePHEDrine 10 mg lactated ringers infusion 600 mL Lactated Ringers 1,200 mL * Agents Name O2 Air N2O Sevoflurane (et) * Blood No blood administrations on file. Lines, Drains, and Airways Type Details Placement Removal (RETIRED) Peripheral IV Line - Single Lumen 10/30/21; 08; median cubital vein (antecubital fossa), left; fzim-rpz-spwvtl catheter system; Anatomical Landmarks; US Not Used; 20 gauge; BYokasta,RN; intradermal injection; 0; removed inadvertently; 10/31/21; 0613 10/30/21 0827 by Merary Lennon RN 10/31/21 0613 by Anna Cesar RN Urethral Catheter 10/30/21; 0900; Physician order; indwelling double lumen catheter; hydrophilic coated, latex; 14; inserted at this facility; 1; 5; 10; none; drainage bag to dependent drainage; LDA not present upon assessment; 10/30/21; 1400 (Estimated time of removal. Removed in PACU) 10/30/21 0900 by Caridad Le RN 10/30/21 1400 by Anna Cesar RN (RETIRED) Peripheral IV Line - Single Lumen 10/30/21; 0916; metacarpal vein (top of hand), right; bwyp-tgg-gmphhq catheter system; Anatomical Landmarks; 20 gauge; Leblanc MD; LDA not present upon assessment; 10/31/21; 1717 10/30/21 0916 by Shan Wheeler, FLOWER CUTTER 10/31/21 1717 by Leila Sanchez RN Arterial Line 10/30/21; 0923; radi al artery, right; 20 gauge; Guidewire, Anatomical Landmarks; continuous blood pressure monitoring; MD Deana; Sterile Prep, Sterile Gloves; 10/30/21; 19310/30/21 0923 by Shan Wheeler, FLOWER CUTTER 10/30/21 193 by Anna Cesar RN (RETIRED) Peripheral IV Line - Single Lumen 10/30/21; 0933; great saphenous vein (medial side of leg), right; cdrr-cea-hsccnp catheter system; Anatomical Landmarks; 18 gauge; S.Liam, FLOWER CUTTER; 10/30/21; 1513 10/30/21 0933 by Shan Wheeler, FLOWER CUTTER 10/30/21 1513 by Tom Hernandez RN Incision 10/30/21; 1045; cerv ical spine; vertical; 10/30/21; 1244 10/30/21 1045 by Caridad Le RN 10/30/21 1244 by Caridad Le RN Incision 10/30/21; 1045; cerv ical spine; vertical; 01/20/22 10/30/21 1045 by Caridad Le RN 01/20/22 0000 by Meena Greenwood LPN ETT Mask Ventilation: Ea lucero (1); ETT Type: Cuffed, Oral; ETT Size: 7 mm; Indirect: Video; Notes: Asleep, Pre-O2, Cricoid Pressure, Stylette; Attempts: 1; Laryngoscopy Grade: 1; ETT Placement Verified By: Auscultation, Capnometry, Visual; Secured at Teeth: 22 cm; Inserted by: rajat Chapman; Removal Date: 10/30/21; Removal Time: 1344 10/30/21 1048 by Shan Wheeler CRNA 10/30/21 1344 by Shan Wheeler CRNA Drain/Device Site 10/30/21; 1245; midl ine; cervical spine; collapsible closed device (10fr round); Dr. Puente; Sterile prep and drape; Prone; (C5/6); Asleep; 10/31/21; 1230 10/30/21 1245 by Caridad Le RN 10/31/21 1230 by Irasema Calix RN documented in this encounter Social History Tobacco Use Types Packs/Day Years [...] on file documented as of this encounter OR Notes * Anesthesia Postprocedure Evaluation - Pat Leblanc MD - 10/30/2021 5:12 PM EDT Department of Anesthesiology Post-procedure Note Patient: Jeannie Rico Procedure Summary Date: 10/30/21 Room / Location: [facility] OR [address] [place] [address] MAIN OR Anesthesia Start: 844 Anesthesia Stop: 140 Procedures: @ARTHRODESIS, POSTERIOR CERVICAL SPINE (WRVU 17.4) (N/A Spine Cervical) POST SPINAL INSTRUMENTATION, 3-6 VERTEBRA, NON SEGMENTAL (WRVU 12.56) (N/A Spine Cervical) MODIFIER,POSTERIOR CERVICAL INFINITY MEDTRONIC (N/A Spine Cervical) LAMINECTOMY, CX W/EXPLOR , W/O FACETECTOMY, 1 OR 2 SEGMENTS (WRVU 17.61) (N/A Spine Cervical) Diagnosis: (C 5/6 and 6/7 ACDF) Surgeons: Campos Puente MD Responsible Provider: Pat Leblanc MD Anesthesia Type: general ASA Status: 3 All Anesthesia Providers: Anesthesiologist: Pat Leblanc MD FLOWER CUTTER: Shan Wheeler CRNA Vitals Value Taken Time BP 177/97 10/30/21 1632 Temp 36.3 ??C (97.3 ??F) 10/30/21 1515 Pulse 69 10/30/21 1646 Resp 19 10/30/21 1646 SpO2 97 % 10/30/21 1649 Pain Level 5 10/30/21 1620 Vitals shown include unvalidated device data. Patient Location: PACU/[facility] Level of Consciousness: Conscious but Sleepy Pain Management: Satisfactory Analgesia PONV: None Cardiovascular Status: At Baseline Respiratory Status: At Baseline Postoperative Fluid Status: Intravascular EUvolemia Possible Anesthetic Complications: NONE apparent at time of evaluation Final Primary Anesthesia Type: General (The anesthetic type performed was the same as planned.) Comments: * Anesthesia Preprocedure Evaluation - Pat Leblanc MD - 06/23/2021 10:53 AM EST Pre-Anesthesia Evaluation for: Jeannie Rico a 61 y.o. female. Procedure(s): ARTHRODESIS, ANT INTERBODY,DECOMPRESSION; CERVICAL BELOW C2 (WRVU 25) ARTHRODESIS ANT INTERBDY CERVCL BELOW C2 EA ADDL INTRSPACE (WRVU 6.5) ALLOGRAFT FOR SPINE SURGERY ONLY; STRUCTUAL (WRVU 1.81) ANT. SPINAL INSTRUMENTATION, 2-3 VERTEBRA, SEGMENTED (WRVU 11.94) MODIFIER,ANTERIOR CERVICAL ZEVO REGULAR MEDTRONIC Patient Active Problem List Diagnosis ??? Cataract [...] Osteoarthrosis ??? Seizures ??? Coronary artery disease s/p [...] scar. Left ventricular function is normal. ??? Headache ??? Bipolar disorder ??? Low back pain ??? Hypothyroidism, acquired ??? Borderline personality disorder Per [facility] ??? Osteoporosis DEXA done at [facility] on 10/29/15: osteoporosis at the [...] BIOPSY performed by Ken Sanders MD at [facility] ENDOSCOPY ??? PRO UPPER GI ENDOSCOPY, BIOPSY N/A 09/19/2018 UPPER GASTROINTESTINAL ENDOSCOPY,WITH BIOPSY SINGLE OR MULTIPLE (WRVU 2.49) performed by Tyron Mercado MD at [facility] ENDOSCOPY ??? TONSILLECTOMY ??? UPPER GI ENDOSCOPY, EXAM 12/04/2010 UPPER GI ENDOSCOPY performed by DEE WRIGHT at [facility] END[facility] Social History Tobacco Use ??? Smoking status: Current Every Day Smoker Packs/day: 2.00 Years: 50.00 Pack years: 100.00 Types: Cigarettes ??? Smokeless tobacco: Never Used Substance Use Topics ??? Alcohol use: No Comment: not drank in 24 years Social History Substance and Sexual Activity Drug Use Yes ??? Types: Marijuana Comment: 3 times per day, edibles Allergies Allergen Reactions ??? Morphine Shortness Of Breath ??? Sumatriptan Hives ??? Oxycodone Other (See Comments) drunk feeling, dizzy ??? Oxycodone-Acetaminophen Other (See Comments) dizziness, feels drunk ??? Chantix [Varenicline] psychotic ??? Imitrex [Sumatriptan Succinate] Hives ??? Prednisone Other reaction(s): aggitation Medications: MAR and/or home medications have been reviewed. Physical Exam: Preprocedure Vitals Current as of 06/23/21 1053 No BP, pulse, respiration, SpO2, or temperature recorded. Height: Weight: BMI: IBW: Airway Assessment: Mallampati: I TM distance: >3 FB Neck ROM: full Cardiovascular Assessment: Rhythm: regular Rate: abnormal PE comment: Bradycardic Pulmonary Assessment: breath sounds clear to auscultation Dental Assessment: Misc Assessment: Last Filed Perioperative Cognitive Screening None Anesthesia Plan: ASA 3 general, with a(n) intravenous induction See pre op assessment note below GETA; PIV; A-line Region - Other Informed Consent: Anesthetic plan and risks discussed with patient. Plan discussed with FLOWER CUTTER. Anesthesia Screening Note: Date and Time of Entry: 06/23/2021 10:55 AM Entered By: Evelia Dickerson APRN Reason for Evaluation: Surgeon Request Other Reason: History of COPD, CAD, HTN Screening Visit Type: Interviewed in person Additional/Outside Records Requested? Did not request medical information from outside organization. Findings, Assessment and Plan: 61 y.o. female who is scheduled for arthrodesis, anterior interbody decompression, cervical below C2 with Dr. Puente on 07/03/21. MEDICAL HISTORY: COPD, KARINA, COPD, chronic bronchitis, diabetes, current smoker SURGICAL HISTORY: gastric bypass, cholecystectomy, lipectomy, coronary angioplasty with stent placement, tonsillectomy ANESTHETIC HISTORY: No previous complications with anesthesia Allergies reviewed Labs reviewed Meds reviewed FUNCTIONAL EXERCISE TOLLERANCE: <4 METS Zio patch: 10/09/20 No sustained arrhythmias Echocardiogram: 01/07/21 Ejection fraction estimated to be 65%. No hemodynamically significant valvedisease. Nuclear stress test: 04/15/21 No ischemia or scar. Left ventricular function is normal. ASSESSMENT: Jeannie presented to the [facility] clinic today with her wood type finisher Angela to discuss anesthesia for her upcoming cervical spine decompression. She has a history of CAD requiring coronary angioplasty with stent placement. She denies chest pain or lightheadedness. She had an echocardiogram in December which showed an EF of 65%, no significant valve disease. A stress test was performed in [facility] of this year which was normal. Patient was seen by Dr. Talbot in cardiology on 04/30/21 and given clearance for her upcoming surgery. Jeannie has a history of COPD, chronic bronchitis which is well managed with Advair and Spiriva. She uses albuterol about twice a month and has not needed to use a this for the last month. No shortnessof breath at rest. She arrived to clinic today in a wheelchair and reports limited mobility. She isable to ambulate around her house using a walker but does get short of breath with walking short distances. She is a current smoker with a 100 pack year history but is working on smoking cessation. She has cut down to four cigarettes per day with a goal of complete cessation by her surgery date. She reports undergoing a sleep study several years ago which indicated sleep apnea but reports being told a CPAP was optional and she did not pursue this. She does snore at nighttime but no episodes of apnea or daytime sleepiness. She also has a history of diabetes, her last A1C from 05/27/21 was 5.6. PLAN: Jeannie has received clearance from cardiology, please see note dated 04/30/[address] Talbot. From a pulmonary standpoint, she denies any shortness of breath and her COPD symptoms are well controlled on her current inhaler regimen. She will continue on these medications. No additional testingis warranted at this time. We reviewed general anesthesia and the risks associated with it. We will contact the patient's DPOA, Rae, to obtain anesthesia consent. Case was discussed with Dr. Myles who agrees with the plan. Evelia Dickerson, SAM 06/23/2021 documented in this encounter Plan of Treatment Not on file documented as of this encounter Visit Diagnoses Not on filedocumented in this encounter Administered Medications Inactive Administered Medications - up to 3 most recent administrations Medication Order MAR Action Action Date Dose Rate Site ceFAZolin (Ancef) 2 g in dextrose 5% 100 mL infusion 2 g, Intravenous, ONCE, 1 dose, On Tue10/30/21 at 0830, Administer over 30 Minutes, To be administered upon arrival to the OR within one hour prior to incision., Day of Surgery (Day of Procedure), Indication for (Active or Suspected): Prophylaxis Given 10/30/2021 1:10 PM EDT 2 g Given 10/30/2021 9:12 AM EDT 2 g ePHEDrine sulfate (5 mg/mL) multi-dose injection Intravenous, PRN, Starting on Tue10/30/21 at 1315, Until Tue10/30/21 at 1403, Anesthesia Intra-op, Routine Given 10/30/2021 1:15 PM EDT 10 mg fentaNYL (pf) (50 mcg/mL) multi-dose injection Intravenous, PRN, Starting on Tue10/30/21 at 0855, Until Tue10/30/21 at 1403, Anesthesia Intra-op, Routine Given 10/30/2021 8:55 AM EDT 100 mcg HYDROmorphone (Dilaudid) (2 mg/mL) multi-dose injection solution Intravenous, PRN, Starting on Tue10/30/21 at 1033, Until Tue10/30/21 at 1403, Anesthesia Intra-op, Routine Given 10/30/2021 10:33 AM EDT 0.4 mg Given 10/30/2021 9:47 AM EDT 0.4 mg ketamine (Ketalar) (10 mg/mL) IV bolus injection (Anesthesia) Intravenous, PRN, Starting on Tue10/30/21 at 1044, Until Tue10/30/21 at 1403, Anesthesia Intra-op Given 10/30/2021 10:44 AM EDT 30 mg lactated ringers infusion 1,000 mL, at 100 mL/hr, Intravenous, CONTINUOUS, Starting on Tue10/30/21 at 0830, Until Tue10/30/21 at 1720, Day of Surgery (Day of Procedure) New Bag 10/30/2021 8:45 AM EDT lactated ringers infusion Intravenous, CONTINUOUS PRN, Starting on Tue10/30/21 at 0918, Until Tue10/30/21 at 1403, Anesthesia Intra-op New Bag 10/30/2021 11:00 AM EDT New Bag 10/30/2021 9:18 AM EDT lidocaine (pf) (Xylocaine) (20 mg/mL) 2% injection syringe Intravenous, PRN, Starting on Tue10/30/21 at 0855, Until Tue10/30/21 at 1403, Anesthesia Intra-op, Routine Given 10/30/2021 8:55 AM EDT 100 mg midazolam (pf) (Versed) (1 mg/mL) multi-dose injection Intravenous, PRN, Starting on Tue10/30/21 at 0845, Until Tue10/30/21 at 1403, Anesthesia Intra-op, Routine Given 10/30/2021 8:45 AM EDT 2 mg ondansetron (pf) (Zofran) (2 mg/mL) injection Intravenous, PRN, Starting on Tue10/30/21 at 1304, Until Tue10/30/21 at 1403, Anesthesia Intra-op, Routine Given 10/30/2021 1:04 PM EDT 4 mg PHENYLephrine (Jacob-Synephrine) (80 mcg/mL) in sodium chloride 0.9% 250 mL infusion Intravenous, CONTINUOUS PRN, Starting on Tue10/30/21 at 1051, Until Tue10/30/21 at 1403, Anesthesia Intra-op, Routine Rate/Dose Change 10/30/2021 12:02 PM EDT 20 mcg/min 15 mL/hr New Bag 10/30/2021 10:51 AM EDT 10 mcg/min 7.5 mL/hr PHENYLephrine in NS (PF) (JACOB-SYNEPHRINE) 0.8 mg/10 mL (80 mcg/mL) multi-dose injection Syrg Intravenous, PRN, Starting on Tue10/30/21 at 0904, Until Tue10/30/21 at 1403, Anesthesia Intra-op, Routine Given 10/30/2021 9:04 AM EDT 120 mcg propofoL (Diprivan) (10 mg/mL) infusion Intravenous, CONTINUOUS PRN, Starting on Tue10/30/21 at 0955, Until Tue10/30/21 at 1403, Anesthesia Intra-op, Routine Rate/Dose Change 10/30/2021 12:55 PM EDT 50 mcg/kg/min 29.01 mL/hr Rate/Dose Change 10/30/2021 11:08 AM EDT 125 mcg/kg/min 72 .525 mL/hr New Bag 10/30/2021 9:55 AM EDT 100 mcg/kg/min 58.02 mL/ hr propofoL (Diprivan) 10 mg/mL bolus injection (Anesthesia) Intravenous, PRN, Starting on Tue10/30/21 at 0855, Until Tue10/30/21 at 1403, Anesthesia Intra-op Given 10/30/2021 8:55 AM EDT 250 mg remifentaniL (Ultiva) (0.02 mg/mL) infusion (Anesthesia) Intravenous, CONTINUOUS PRN, Starting on Tue10/30/21 at 0955, Until Tue10/30/21 at 1403, Anesthesia Intra-op Rate/Dose Change 10/30/2021 12:52 PM EDT 0.15 mcg/kg/min 43.515 mL/hr New Bag 10/30/2021 9:55 AM EDT 0.2 mcg/kg/min 58.02 mL/ hr rocuronium (Zemuron) (10 mg/mL) multi-dose injection Intravenous, PRN, Starting on Tue10/30/21 at 0902, Until Tue10/30/21 at 1403, Anesthesia Intra-op, Routine Given 10/30/2021 9:02 AM EDT 30 mg succinylcholine (Anectine;Quelicin) (20 mg/mL) injection Intravenous, PRN, Starting on Tue10/30/21 at 0855, Until Tue10/30/21 at 1403, Anesthesia Intra-op, Routine Given 10/30/2021 8:55 AM EDT 100 mg documented in this encounter Care Teams Bariatric Nurse Relationship Specialty Start Date End Date Haong Castellanos, MEDICARE COORDINATOR [address] [place] [address] PCP - General Family Medicine 03/12/20 documented as of this encounter
--- OUTSIDE RECORDS SUMMARY | 2024-02-22 00:49 | XMS_ITS | Encounter Summary ---
[place] [address] Care Team Providers Care Ice Hockey Coach Name Role Phone Hoang Castellanos APRN Primary Care Provider Reason for Visit * Reason Onset Date Comments Other 10/28/2021 Test results Encounter Details Date Type Department Care Team (Late st Contact Info) Description 10/28/2021 [place]phone [place] [id number] Laurel Ordoñez RN Other (Test results) Social History Tobacco Use Types Packs/Day Years [...] encounter Miscellaneous Notes * Telephone Encounter - Laurel Ordoñez RN - 10/28/2021 11:30 AM EDT Telephone call to pt to inform pt of NEGATIVE Covid-19 test results. Pt verbalizes understanding and will contact healthcare provider if any concerns or requires further care. documented in this encounter Plan of Treatment Not on file documented as of this encounter Visit Diagnoses Not on filedocumented in this encounter Care Teams Ice Hockey Coach Relationship Specialty Start Date End Date Hoang Castellanos, [facility] [address] [place] [address] PCP - General Family Medicine 03/12/20 documented as of this encounter
--- OUTSIDE RECORDS SUMMARY | 2024-02-22 00:49 | XMS_ITS | Encounter Summary ---
Author Organization [facility] Address [facility] [place] [address] Care Team Providers Care Cordwainer Name Role Phone Hoang Castellanos APRN Primary Care Provider Encounter Details Date Type Department Care Team (Late st Contact Info) Description 10/29/2021 Telephone [place] [address] Campos Puente MD [facility] [place] [address] Social History Tobacco Use Types Packs/Day Years [...] encounter Miscellaneous Notes * Telephone Encounter - Campos Puente MD - 10/29/2021 9:48 AM EDT I telephoned Kyra Mittal, Ms Rico's DPOA; I explained that I had reviewed imaging and decidedthat laminectomy via posterior approach would be preferable strategy here. Clear discussion of risks of anesthesia, visual loss, bleeding, infection, injury to spinal cord including possibilitiy of paralysis, CSF leak, numbness, weakness, bowel/bladder dysfunction, failure of instrumentation, failure of fusion, failure to relieve symptoms, spinal instability, need for further surgery all explicitly discussed, all questions answered, she wishes to proceed. documented in this encounter Plan of Treatment Not on file documented as of this encounter Visit Diagnoses Not on filedocumented in this encounter Care Teams Cordwainer Relationship Specialty Start Date End Date Hoang Castellanos, NEGOTIATOR SALES [address] [place] [address] PCP - General Family Medicine 03/12/20 documented as of this encounter
--- OUTSIDE RECORDS SUMMARY | 2024-02-22 00:49 | XMS_ITS | Encounter Summary ---
Author Organization [facility] [place] [address] Care Team Providers Care Geological Scout Name Role Phone Hoang Castellanos APRN Primary Care Provider [phone] Reason for Visit * Reason Comments Medication Refill Encounter Details Date Type Department Care Team (Late st Contact Info) Description 10/26/2021 Refill Primary Care at [facility] [address] [place] [phone] Hoang Castellanos APRN [address] [facility] [place] [address] Social History Tobacco Use Types Packs/Day Years [...] Encounter - Maria D Joshi CCMA - 10/26/2021 2:33 PM EDT Medication name: FeroSul Last Prescription Fill Date: 11/26/20 Number Dispensed and Refills: 07/04 Last Related Office Visit: 08/31/21 Upcoming Appointment: Visit date not found No [...] on filedocumented in this encounter Care Teams Geological Scout Relationship Specialty Start Date End Date Hoang Castellanos, STREET LIGHT LAMP CLEANER [address] [place] [address] PCP - General Family Medicine 03/12/20 documented as of this encounter
--- OUTSIDE RECORDS SUMMARY | 2024-02-22 00:49 | XMS_ITS | Encounter Summary ---
Author Organization [facility] [place] [address] Care Team Providers Care Mortgage Loan Processor Name Role Phone Hoang Castellanos APRN Primary [...] Expiration Date Visits Re quested Visits Authorized [id number] 1 1 Encounter Details Date Type Department Care Team (Latest Contact Info) Description 10/27/2021 10:30 AM EDT Public [place] [address] Encounter for preprocedure screening laboratory testing for COVID-19 Social History Tobacco Use Types Packs/Day Years [...] Procedure Name Priority Date/Time Associated Diagnosis Comments COVID-19 PCR Routine 10/27/2021 11:32 AM EDT Encounter for preprocedure screening laboratory testing for COVID-19 documented in this encounter Results * COVID-19 PCR (10/27/2021 11:32 AM EDT) SARS-CoV-[address] Not Detected [facility] Comment: This result should be [...] diagnosis of COVID-19 is performed using the [employer] m SARS-CoV-2 Assay as authorized by the FDA Emergency Use Authorization (EUA). This EUA assay is intended for In-vitro Diagnostic (IVD) use with respiratory specimens such as nasopharyngeal swabs collected from individuals during the acute phase of infection. This assay is performed based on the instructions for use provided by [employer] and additional guidance provided by CDC and FDA. 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[employer] Swab [facility] Nasopharyngeal Swab 10/28/19 11:32 AM EDT 10/27/2021 11:32 AM EDT Comment:Symptoms->Asymptomat ic Narrative Resulting Agency Comment Spec In Lab Campos Puente MD MICROBIOLOGY - GENER AL ORDERABLES [facility] [place] [address] documented in this encounter Visit Diagnoses Diagnosis Encounter for preprocedure screening laboratory testing for COVID-19 documented in this encounter Care Teams Mortgage Loan Processor Relationship Specialty Start Date End Date Hoang Castellanos APRN [address] [place] [address] PCP - General Family Medicine 03/12/20 documented as of this encounter
--- OUTSIDE RECORDS SUMMARY | 2024-02-22 00:49 | XMS_ITS | Encounter Summary ---
[place] [address] Care Team Providers Care Waste Disposal Leakage Tester Name Role Phone Hoang Castellanos APRN Primary Care Provider Reason for Referral * Diagnostic Test (Routine) - Closed Specialty Diagnoses / Procedures Referred By Contac t Referred To Contact Radiology Diagnoses Cervical spondylosis Procedures CT Cervical Spine wo Contrast Campos Puente MD [facility] [place] [address] [address] [facility] [place] [address] Referral ID Status Reason Start Date Expiration Date V isits Requested Visits Authorized [id number] Closed Specialty Service Requested 08/09/2021 02/06/2023 1 1 Reason for Visit * Diagnostic Test (Routine) - Closed Specialty Diagnoses / Procedures Referred By Contac t Referred To Contact Radiology Diagnoses Cervical spondylosis Procedures CT Cervical Spine wo Contrast Campos Puetne MD [facility] [place] [address] [facility] [place] [address] Referral ID Status Reason Start Date Expiration Date V isits Requested Visits Authorized [id number] Closed Specialty Service Requested 08/09/2021 02/06/2023 1 1 Encounter Details Date Type Department Care Team (Latest Contact Info) Description 08/18/2021 7:49 AM EST - 08/18/2021 11:59 PM EST Hospital Encounter CT Scan at [facility] [place] [address] Campos Puente MD [facility] [place] [address] Cervical spondylosis Discharge Disposition: Home Social History Tobacco Use [...] by mouth daily. 30 tablet 5 11/09/2021 clonazePAM (KlonoPIN) 0.5 mg Tablet Take 0.5 mg by mouth nightly. 05/20/2021 Miscellaneous Medical Supply MiscIndications:Dizzine ss,Chronic right-sided low back pain without sciatica 1 walker on wheels with seat 1 each 03/12/2020 multivitamin (THERAGRAN) Tablet Take 1 tablet by mouth daily. MARIJUANA ORAL Take 1 Dose by mouth 2 times daily. cholecalciferol, Vitamin D3, (Vitamin D3) 1,000 unit [...] 6 hours as needed. 30 tablet 3 06/16/2021 09/14/2021 Acidophilus Capsule Take 1 tablet by mouth [...] 11 04/24/2021 11/30/2021 lisinopriL (Zestril) 40 mg TabletIndications:Benig n essential hypertension TAKE ONE (1) TABLET BY MOUTH EVERY DAY 28 tablet 11 04/14/2021 12/01/2021 tiotropium bromide (Spiriva Respimat) 2.5 mcg/actuation MistIndications:Asthma with acute exacerbation, unspecified asthma severity, unspecified whether persistent Inhale 2 puffs into the lungs nightly. 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 TAKE ONE (1) TABLET BY MOUTH EVERY DAY 28 tablet 11 02/17/2021 01/18/2022 FeroSuL 325 mg (65 mg iron) Tablet TAKE ONE (1) TABLET BY MOUTH THREE TIMES A WEEK 12 tablet 11 11/26/2020 10/26/2021 prazosin (Minipress) 2 mg Capsule TAKE THREE (3) CAPSULES BY MOUTH DAILY AT BEDTIME 84 each 10/31/2020 09/28/2021 Ventolin HFA 90 mcg/actuation HFA Aerosol InhalerIndications: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 90 tablet 3 10/16/2020 09/01/2021 atorvastatin (Lipitor) 40 mg TabletIndications:Hyper lipidemia, unspecified hyperlipidemia type Take 1 tablet by mouth daily. 90 tablet 3 10/16/2020 09/01/2021 omeprazole (PriLOSEC) 20 mg Capsule, Delayed Release(E.C.)Indication s:Gastroesophageal reflux disease TAKE ONE (1) CAPSULE BY MOUTH TWICE A DAY 30 MIN BEFORE BREKAFAST AND IN THE EVENING 56 capsule 11 10/02/2020 09/01/2021 nitroGLYcerin (Nitrostat) 0.4 mg Tablet, Sublingual Place 1 tablet under the tongue every 5 minutes as needed for Chest pain. 30 tablet 1 06/02/2020 12/01/2021 ibuprofen (Advil;Motrin) 800 mg TabletIndications:Chron ic right-sided low back pain without sciatica Take 1 tablet by mouth every 8 hours as needed for Pain. 90 tablet 5 03/04/2020 11/04/2021 lancets 30 gauge MiscIndications:Type 2 diabetes mellitus [...] Indigestion. 11/26/2021 documented as of this encounter Plan of Treatment Not on file documented as of this encounter Procedures Procedure Name Priority Date/Time Associated Diagnosis Comments CT CERVICAL SPINE WO CONTRAST Routine 08/18/2021 8:08 AM EST Cervical spondylosis documented in this encounter Results * CT Cervical Spine [...] who have questions please contact the health companion caregiver that requested your imaging first. ? Electronically signed by: Siomara Rahman MD, [facility] ([phone]), at 08/18/2021 10:43 AM Narrative 08/18/2021 10:43 AM EST EXAMINATION: CT [...] patients who have questions please contactthe health companion caregiver that requested your imaging first. Electronically signed by: Siomara Rahman MD, [facility]([phone]), at 08/18/2021 10:43 AM Campos Puente MD IMG CT ORDERABLES documented in this encounter Visit Diagnoses Diagnosis Cervical spondylosis Cervical spondylosis without myelopathy documented in this encounter Care Teams Waste Disposal Leakage Tester Relationship Specialty Start Date End Date Hoang Castellanos, DEV TECHNICAL MGR [address] [place] [address] PCP - General Family Medicine 03/12/20 documented as of this encounter
--- OUTSIDE RECORDS SUMMARY | 2024-02-22 00:49 | XMS_ITS | Encounter Summary ---
[facility] [place] [address] Care Team Providers Care Radiation Control Specialist Name Role Phone Hoang Castellanos APRN Primary Care Provider Encounter Details Date Type Department Care Team (Late st Contact Info) Description 08/11/2021 Telephone [place] [address] Campos Puente MD [facility] [place] [address] Social History Tobacco Use Types Packs/Day Years [...] * Telephone Encounter - Marli Hernández - 08/31/2021 9:[address] Puente, Patient calling re: CT scan she had done on 08/18 for you to review prior to scheduling surgery. Please review and call patient [phone] Thank you Marli (Email sent to [facility]) * Telephone Encounter - Marli Hernández - 08/11/2021 11:40 AM EST Called pt scheduled CT C-spine for 08/18 send email and IB to PAB to review on 08/19 then schedule surgery ~~~~~~~~~~~~~~~~~~~~~~~~~~~~~~~ Jeannie Rico - 08/06/21 Campos Puente MD Sent: Jennifer August 09, 2021 10:50 AM To: P [facility] Strategic Consultant ?? Message CT cervical spine; have me review and then schedule surgery documented in this encounter Plan of Treatment Not on file documented as of this encounter Visit Diagnoses Not on filedocumented in this encounter Care Teams Radiation Control Specialist Relationship Specialty Start Date End Date Hoang Castellanos, SAM [address] [place] [address] PCP - General Family Medicine 03/12/20 documented as of this encounter
--- OUTSIDE RECORDS SUMMARY | 2024-02-22 00:49 | XMS_ITS | Encounter Summary ---
Author Organization [facility] [place] [address] Care Team Providers Care Pediatric Neurologist Name Role Phone Hoang Castellanos APRN Primary Care Provider Reason for Visit * Consultation (Routine) - Closed Specialty Diagnoses / Procedures Referred By Contac t Referred To Contact Endocrinology Diagnoses Osteoporosis, unspecified osteoporosis type, unspecified pathological fracture presence Hoang Castellanos APRN [address] [place] [address] [facility] [address] [place] [phone] Referral ID Status Reason Start Date Expiration Date V isits Requested Visits Authorized [id number] Closed Specialty Service Requested 2021 2022 12 12 Encounter Details Date Type Department Care Team (Latest Contact Info) Description 06/22/2021 2:15 PM EST TH Visit (TeleHealth) [place] [address] Michael Espinoza MD [facility] [place] [address] Vitamin D deficiency; 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 TELEHEALTH NEW PATIENT VISIT Patient verbally consents to this telehealth visit and understands that this visit may be billed, similar to a clinic office visit Jeannie Rico is a 61 y.o., female about whom I am asked to consult for osteoporosis/low bone mineral density. Referring provider: Hoang Castellanos APRN HPI: Patient presents to discuss recent worsening of her bone mineral density on DEXA scan. She has beentaking Fosamax for approximately 5 years and has had multiple recent fractures in addition to the decline in bone density. Notably she has a history of significant spinal stenosis and is due to have a surgical intervention for this next month. She tells me that this condition and regarding significant dizziness which is led to some falls in the recent past. This is precluded her from being as physically active as she would like. Notably she has a history of Genesis-en-Y gastric bypass. There is some conflicting information in thechart, it appears that this surgery occurred either in 1995 or 1999. She was formally followed by the bariatric surgery clinic, it appears the last time was in 2016. They were helping to monitor her electrolyte levels and administer mineral and vitamin supplementation. They had advised her against t aking Fosamax given concerns about increased risk for GI ulceration given her history of bypass surgery. History of metabolic bone disease summarized below. Metabolic Bone History: Menstrual History: Menopause: HRT: Yes (see below) Notably she had a CHIP/BSO for ovarian cancer, age 24. Was put on estrogen afterwards, stopped in 1996 (age 37). Did do radiation, no chemo. As far as she knows she is cancer free History of fractures: Last January broke right wrist fell when working outside Fractured distal fibula late 2019 Notable family history of osteoporosis: Mother had osteoporosis Falls: does fall frequently due to dizziness, has done PT Previous bone medications/Duration: 1. Alendronate 70 mg weekly, taking for about 5 years Side effects: Ca intake: takes in Vitamin D supplement Vit D intake: vitamin D3 2000 IU daily Exercise: limited due to dizziness, afraid of falling. She believes dizziness is related to spinal stenosis Risk factors of osteoporosis: Dietary History: Not much dairy intake Does have salads in her meals on wheels Takes a multivitamin that contains calcium. She believes there may be some calcium in her vitamin Dsupplement. Smoking: Has been smoking for many years, trying to cut down/quit Medical History: No history of thyroid, liver or renal disease. +does have frequent diarrhea Does have GERD and takes a PPI +radiation to pelvis for ovarian cancer Has lost 2 inches of height +gastric bypass surgery in 1998. Believes she has a rou-en-y gastric bypass Past Medical History: Diagnosis Date ??? Depression [...] BIOPSY performed by Ken Sanders MD at [facility] ??? PRO UPPER GI ENDOSCOPY, BIOPSY N/A 09/19/2018 UPPER GASTROINTESTINAL ENDOSCOPY,WITH BIOPSY SINGLE OR MULTIPLE (WRVU 2.49) performed by Tyron Mercado MD at [facility] ??? TONSILLECTOMY ??? UPPER GI ENDOSCOPY, EXAM 12/04/2010 UPPER GI ENDOSCOPY performed by DEE WRIGHT at [facility] Social history Social History Socioeconomic History ??? Marital status: Spouse name: Not on file ??? Number of children: Not on file ??? Years of education: Not on file ??? Highest education level: Not on file Occupational History ??? Not on file Tobacco Use ??? Smoking status: Current Every Day Smoker Packs/day: 2.00 Years: 50.00 Pack years: 100.00 Types: Cigarettes ??? Smokeless tobacco: Never Used Vaping Use ??? Vaping Use: Never used Substance and Sexual Activity ??? Alcohol use: No Comment: not drank in 24 years ??? Drug use: Yes Types: Marijuana Comment: 3 times per day, edibles ??? Sexual activity: Not on file Other Topics Concern ??? Do You live alone? No ??? Tobacco in Home Not Asked Social History Narrative ??? Not on file Social Determinants of Health Financial Resource Strain: Not on file Food Insecurity: Not on file Transportation Needs: Not on file Physical Activity: Not on file Housing Stability: Not on file Last dental visit: Has full dentures, top and bottom. Somewhat loose Past Medical History: Diagnosis Date ??? Depression [...] BIOPSY performed by Ken Sanders MD at [facility] ??? PRO UPPER GI ENDOSCOPY, BIOPSY N/A 09/19/2018 UPPER GASTROINTESTINAL ENDOSCOPY,WITH BIOPSY SINGLE OR MULTIPLE (WRVU 2.49) performed by Tyron Mercado MD at [facility] ??? TONSILLECTOMY ??? UPPER GI ENDOSCOPY, EXAM 12/04/2010 UPPER GI ENDOSCOPY performed by DEE WRIGHT at [facility] Current Outpatient Medications: ??? tiZANidine (Zanaflex) 4 mg Tablet, Take 1 tablet by mouth every 6 hours as needed., Disp: 30 tablet, Rfl: 3 ??? lamoTRIgine (LaMICtal) 200 mg Tablet, TAKE ONE (1) TABLET BY MOUTH EVERY DAY, Disp: 28 tablet, Rfl: 11 ??? levothyroxine (Synthroid) 50 mcg Tablet, TAKE ONE (1) TABLET BY MOUTH EVERY DAY, Disp: 28 tablet, Rfl: 11 ??? clonazePAM (KlonoPIN) 0.5 mg Tablet, Take 0.5 mg by mouth daily as needed., Disp: , Rfl: ??? Acidophilus Capsule, Take 1 tablet by mouth daily., Disp: , Rfl: ??? nicotine polacrilex (Nicorette) 2 mg Gum, Take 1 each by mouth every 4 hours as needed for Smoking cessation (may alternate with lozenges)., Disp: 100 each, Rfl: 5 ??? nicotine polacrilex (Commit) 2 mg Lozenge, Place 1 lozenge inside cheek every 4 hours as neededfor Smoking cessation (may alternative with gum)., Disp: 100 tablet, Rfl: 3 ??? Advair Diskus 500-50 mcg/dose Disk with Device, USE 1 INHALATION TWICE A DAY, Disp: 60 each, Rfl: 11 ??? lisinopriL (Zestril) 40 mg Tablet, TAKE ONE (1) TABLET BY MOUTH EVERY DAY, Disp: 28 tablet, Rfl: 11 ??? alendronate (Fosamax) 70 mg Tablet, Take 1 tablet by mouth every 7 days. Take in AM with full glass of water, on an empty stomach. Do not lie down for 30 min., Disp: 4 tablet, Rfl: 11 ??? tiotropium bromide (Spiriva Respimat) 2.5 mcg/actuation Mist, Inhale 2 puffs into the lungs nightly. (Patient taking differently: Inhale 2 puffs into the lungs 2 times daily.), Disp: 12 g, Rfl: 3 ??? aspirin EC 81 mg Tablet, Delayed Release (E.C.), TAKE ONE (1) TABLET BY MOUTH EVERY DAY, Disp: 28 tablet, Rfl: 11 ??? metoprolol succinate XL (Toprol-XL) 25 mg Tablet Sustained Release 24 hr, TAKE ONE-HALF (1/2) TABLET BY MOUTH EVERY DAY, Disp: 14 tablet, Rfl: 11 ??? Vitamin B-12 1,000 mcg Tablet, TAKE ONE (1) TABLET BY MOUTH ONCE WEEKLY (PM), Disp: 4 tablet, Rfl: 11 ??? cholecalciferol, Vitamin D3, 50 mcg (2,000 unit) Tablet, TAKE ONE (1) TABLET BY MOUTH EVERY DAY(PM), Disp: 28 tablet, Rfl: 11 ??? isosorbide mononitrate CR (Imdur) 30 mg Tablet Sustained Release 24 hr, TAKE ONE (1) TABLET BY MOUTH EVERY DAY, Disp: 28 tablet, Rfl: 11 ??? FeroSuL 325 mg (65 mg iron) Tablet, TAKE ONE (1) TABLET BY MOUTH THREE TIMES A WEEK, Disp: 12 tablet, Rfl: 11 ??? prazosin (Minipress) 2 mg Capsule, TAKE THREE (3) CAPSULES BY MOUTH DAILY AT BEDTIME, Disp: 84 each, Rfl: 11 ??? Ventolin HFA 90 mcg/actuation HFA Aerosol Inhaler, INHALE 1 TO 2 PUFFS EVERY SIX HOURS NEEDED *CALL TO REFILL*, Disp: 18 g, Rfl: 2 ??? amLODIPine (Norvasc) 5 mg Tablet, Take 1 tablet by mouth daily., Disp: 90 tablet, Rfl: 3 ??? atorvastatin (Lipitor) 40 mg Tablet, Take 1 tablet by mouth daily., Disp: 90 tablet, Rfl: 3 ??? omeprazole (PriLOSEC) 20 mg Capsule, Delayed Release(E.C.), TAKE ONE (1) CAPSULE BY MOUTH TWICEA DAY 30 MIN BEFORE BREKAFAST AND IN THE EVENING, Disp: 56 capsule, Rfl: 11 ??? nitroGLYcerin (Nitrostat) 0.4 mg Tablet, Sublingual, Place 1 tablet under the tongue every 5 minutes as needed for Chest pain., Disp: 30 tablet, Rfl: 1 ??? Miscellaneous Medical Supply [facility], 1 walker on wheels with seat, Disp: 1 each, Rfl: 0 ??? ibuprofen (Advil;Motrin) 800 mg Tablet, Take 1 tablet by mouth every 8 hours as needed for Pain., Disp: 90 tablet, Rfl: 5 ??? sertraline (ZOLOFT) 100 mg Tablet, Take 2 tablets by mouth 2 times daily., Disp: , Rfl: ??? multivitamin (THERAGRAN) Tablet, Take 1 tablet by mouth daily., Disp: , Rfl: ??? lancets 30 gauge Misc, 1 each by Misc.(Non-Drug; Combo Route) route daily., Disp: 100 each, Rfl: 3 ??? ARIPiprazole (Abilify) 5 mg Tablet, Take 5 mg by mouth daily., Disp: , Rfl: ??? alum-mag hydroxide-simeth (Maalox) 200-200-20 mg/5 mL Suspension, Take 10 mLs by mouth every 6 hours as needed for Indigestion., Disp: , Rfl: ??? MARIJUANA ORAL, Take by mouth., Disp: , Rfl: Allergies Allergen Reactions ??? Morphine Shortness Of Breath ??? Sumatriptan Hives ??? Oxycodone Other (See Comments) drunk feeling, dizzy ??? Oxycodone-Acetaminophen Other (See Comments) dizziness, feels drunk ??? Chantix [Varenicline] psychotic ??? Imitrex [Sumatriptan Succinate] Hives ??? Prednisone Other reaction(s): aggitation Review of Systems: As described above, otherwise is negative All other systems negative. Physical Exam: There were no vitals taken for this visit.There is no height or weight on file to calculate BMI. Wt Readings from Last 5 Encounters: 05/27/21 94.3 kg (208 lb) 04/30/21 94.3 kg (208 lb) 05/26/21 94.3 kg (208 lb) 03/23/21 93.8 kg (206 lb 12.8 oz) 02/03/21 96.4 kg (212 lb 9.6 oz) General: no acute distress, pleasant, sitting comfortably Face: not round or red Eyes: no lid lag; normal eye movements Nose/mouth: Nose not enlarged, mucous membranes moist Neck: no supraclavicular fat pads; trachea midline Respiratory: symmetrical chest expansion, breathing comfortably on room air Psychological: alert/oriented to person, place, time; normal affect; memory intact; normal judgement/insight LABS: Lab Results Component Value Date CALCIUM 9.8 2021 Lab Results Component Value Date CREATININE 0.70 2021 No results for input(s): ALBUMIN in the last 168 hours. Lab Results Component Value Date PHOS 3.4 09/11/2018 Invalid input(s): THYROIDSTIMULATINGHORMONE 25-OH Vit D Total (ng/mL) Date Value Status 10/14/2020 54 Final Component Latest Ref Rng & Units 2021 04/07/2021 10/14/2020 Glucose Lvl 65 - 199 mg/dL 90 BUN 8 - 18 mg/dL 19 (H) Creatinine 0.70 - 1.20 mg/dL 0.70 Sodium 135 - 145 mmol/L 139 Potassium 3.5 - 5.0 mmol/L 4.2 Chloride 98 - 107 mmol/L 101 CO2 22 - 31 mmol/L 26 Anion Gap 5 - 15 mmol/L 12 Calcium 8.5 - 10.5 mg/dL 9.8 Total Protein 6.1 - 8.0 g/dL 6.9 Albumin 3.2 - 5.2 g/dL 4.1 AST 0 - 30 unit/L 11 ALT 0 - 30 unit/L 8 Alk Phos 35 - 105 unit/L 125 (H) Total Bilirubin 0.2 - 1.3 mg/dL 0.3 Estimated GFR >=60 mL/min/1.73 m?? 94 Neutrophils % % 72.5 Neutr Abs (ANC) 1.70 - 6.10 x10(3)/mcL 5.56 Lymphocytes % % 18.1 Lymphocytes Abs 0.9 - 3.2 x10(3)/mcL 1.4 Monocytes % % 8.0 Monocyte Abs 0.3 - 0.9 x10(3)/mcL 0.6 Eosinophils % % 0.8 Eosinophils Abs 0.0 - 0.4 x10(3)/mcL 0.1 Basophils % % 0.5 Basophils Abs 0.0 - 0.1 x10(3)/mcL 0.0 Immature Gran % % 0.10 Fartun Gran Abs 0.00 - 0.04 x10(3)/mcL 0.01 25-OH Vit D Total 21 - 100 ng/mL 54 25-OH Vit D Interp Sufficient TSH 0.27 - 4.20 mcIU/mL 2.27 T4, total 5.3 - 11.6 mcg/dL 7.4 RADIOLOGY I personally reviewed these DXA images and in my review there is low bone density, meeting WHO criteria for osteoporosis. There has been statistically significant decline at both L spine and left hip. Lowest T score is at left femoral neck Assessment / Plan: 61 y.o. female with low bone mineral density I think it is likely that her low bone density is actually multifactorial and probably represents amix of osteomalacia and osteoporosis. She certainly has risk for osteoporosis given her premature menopause (stopped estrogen therapy following BSO at age 37) and also takes PPI. However she does also have a reported history of what sounds to be a Genesis-en-Y gastric bypass and does not appear to be taking the appropriate supplementation with calcium and phosphorus. The latter issue would lead to osteomalacia given insufficient bone mineralization. I think the driving force in the more recent decline in bone mineral density is osteomalacia given that the decline occurred while she was taking Fosamax more potent antiresorptive medication that should stabilize the bone mineral density of patients with osteoporosis. Another biochemical clue that she has active osteomalacia is the fact that her alkaline phosphatasehas been mildly elevated recently. This probably represents excessive bone turnover from insufficient calcium and phosphorus intake coming into the diet. I recommended at this point that she stopped the Fosamax because this could further exacerbate the osteomalacia. I recommended that she consume at minimum between 1200 to 1500 mg of elemental calciumdaily in divided doses. Because she is on a PPI I think that calcium citrate would be more effective. I will send a prescription for this to her pharmacy. She should also increase her vitamin D3 to 3000 international units daily. I recommended that we reassess her blood work for calcium and phosphorus and vitamin D and alkalinephosphatase in August when she is due to see her primary care provider. I will consider further work-up after seeing those labs to include urinary calcium. We did discuss that if it seems that her osteomalacia is stabilizing (sufficient calcium and vitamin D is assured and alkaline phosphatase is normalized) we can consider using a medication such as Forteo or Tymlos to enhance her bone density but these medications carry a risk of osteosarcoma which would be higher in her case given her prior radiation therapy. I will have to discuss the pros versus the cons of this again after the lab results are available. We discussed the importance of regular physical activity strengthen the bones and fall avoidance and fracture. Plan to repeat DXA scan in 2 years. RTC in 5 to 6 months . It was a pleasure to be involved in the care of Jeannie Rico. If you have any questions about the management and treatment plan as outlined above, or if I can be of further assistance, please do not hesitate to contact me. This note was sent to the referring provider Orders Placed This Encounter Procedures ??? Calcium ??? Albumin Level ??? Phosphorus ??? Alkaline Phosphatase ??? Alkaline Phosphatase, Bone Specific ??? 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
--- OUTSIDE RECORDS SUMMARY | 2024-02-22 00:49 | XMS_ITS | Encounter Summary ---
[place] [address] Care Team Providers Care Simulation Educator Name Role Phone Hoang Castellanos APRN Primary Care Provider [phone] Encounter Details Date Type Department Care Team (Late st Contact Info) Description 07/07/2021 [place] [address] Chikis Orourke Social History Tobacco Use Types [...] encounter Miscellaneous Notes * Telephone Encounter - Tegan Garcia RN - 07/07/2021 10:37 AM EST Caller: Jeannie Reason for call: wants to wait to have surgery until she is able to have family here, wanting to know what she can do in the meantime Plan: I explained to Jeannie that we typically would recommend conservative treatment options while waitingfor surgery. That typically includes Pt/OT, medications for pain management or injections if appropriate. Discussed that Jeannie can do PT/OT if shed like. She is hoping to have this done at her home, so I recommended she ask her PCP for this referral as we typically will just do outpatient referrals. She said she will talk to PCP about this. She has done injections in the past which weren't helpful to her. She currently uses medical marijuana and tizanidine to manage her pain, she feels that this is sufficient at this time. I told Jeannie that she should call us with any changes in pain, new n/t, new weakness, changes in bowel or bladder habits. She agreed to call us if any of her symptoms worsen and we can advise her at that time. She will also call us if she decides she'd like to get on the surgery schedule. * Telephone Encounter - Chikis Orourke - 07/07/2021 9:09 AM EST Caller: Patient Best number to reach caller: [phone] Reason for call: Patient asking for next steps, as she has elected to postpone surgery until Covid has settled down. She also requests a referral for in home PT Recent Surgery?: No If before 4:00 pm: Inform caller that the typical expectation for a call back is within 1-2 hours. documented in this encounter Plan of Treatment Not on file documented as of this encounter Visit Diagnoses Not on filedocumented in this encounter Care Teams Simulation Educator Relationship Specialty Start Date End Date Hoang Castellanos, HEAVY FORGER HELPER [address] [place] [address] PCP - General Family Medicine 03/12/20 documented as of this encounter
--- OUTSIDE RECORDS SUMMARY | 2024-02-22 00:49 | XMS_ITS | Encounter Summary ---
Author Organization [facility] Address [facility] [place] [address] Care Team Providers Care First Aid Director Name Role Phone Hoang Castellanos APRN Primary Care Provider Encounter Details Date Type Department Care Team (Late st Contact Info) Description 06/24/2021 Home Care Visit [facility] Choices for Care [address] [place] [id number] Farrah Jama [facility] CUTOVER Social History Tobacco Use Types Packs/Day Years [...] on filedocumented in this encounter Care Teams First Aid Director Relationship Specialty Start Date End Date Hoang Castellanos APRN [address] [place] [address] PCP - General Family Medicine 03/12/20 documented as of this encounter
--- OUTSIDE RECORDS SUMMARY | 2024-02-22 00:49 | XMS_ITS | Encounter Summary ---
Author Organization [facility], [facility] [place] [address] Care Team Providers Care Darkroom Technician Name Role Phone Hoang Castellanos APRN Primary Care Provider [phone] Encounter Details Date Type Department Care Team (Late st Contact Info) Description 2021 Telephone Primary Care at [facility] [place] [phone] Jeannie Luciano, RN Social History Tobacco Use [...] Telephone Encounter - Jeannie Luciano RN - 2021 2:46 PM EDT Message received from Porfirio pharmacist at [facility] re: rx sent for nicotine gum/lozenges. They need 1)more specific directions on both--asking if she should be alternating them Q hour and if there cedric limit as to how many per day and 2) the gum was sent for #50 but it comes in a box of #110. They will need a corrected amount sent as well. documented in this encounter Plan of Treatment Not on file documented as of this encounter Visit Diagnoses Diagnosis Smokes cigarettes Tobacco use disorder documented in this encounter Care Teams Darkroom Technician Relationship Specialty Start Date End Date Hoang Castellanos APRN [address] [place] [address] PCP - General Family Medicine 03/12/20 documented as of this encounter
--- OUTSIDE RECORDS SUMMARY | 2024-02-22 00:49 | XMS_ITS | Encounter Summary ---
Author Organization [facility] Address [facility] [place] [address] Care Team Providers Care Sand Slinger Name Role Phone Hoang Castellanos APRN Primary Care Provider Reason for Referral * Home Health Care (Routine) - Closed Specialty Diagnoses / Procedures Referred By Contdavide t Referred To Contact Home Health Agency Diagnoses Cervical spondylosis Cervicalgia Eden Lemos MD [address] [facility] [address] Visiting Nurse[facility] & [address] [address] Referral ID Status Reason Start Date Expiration Date V isits Requested Visits Authorized [id number] Closed PT/OT 09/04/2021 03/03/2022 1 1 Encounter Details Date Type Department Care Team (Late st Contact Info) Description 09/03/2021 Telephone [facility] at [facility] [address] [place] [address] Lay Rosas, RN Social History Tobacco Use Types Packs/Day [...] encounter Miscellaneous Notes * Telephone Encounter - Lay Rosas RN - 09/04/2021 1:26 PM EST Referral placed * Telephone Encounter - Hoang Castellanos APRN - 09/04/2021 12:[address] referrals! Thank you! * Telephone Encounter - Lay Rosas RN - 09/03/2021 2:57 PM EST Received message from Elena a PT from the [facility] stating they admitted Jeannie to their service and will provide PT Twice a week for six weeks. Elena is also requesting a referral for OT and a medical advisor which she feels Jeannie can benefit from. Requested routed to provider documented in this encounter Plan of Treatment Scheduled Referrals Name Type Priority Associated Diagnoses Orde r Schedule Referral to Home Health - Clinic Use Outpatient Referral Routine Syncope, unspecified syncope type Ordered: 09/04/2021 documented as of this encounter Visit Diagnoses Diagnosis Syncope, unspecified syncope type documented in this encounter Care Teams Sand Slinger Relationship Specialty Start Date End Date Hoang Castellanos APRN [address] [place] [address] PCP - General Family Medicine 03/12/20 documented as of this encounter
--- OUTSIDE RECORDS SUMMARY | 2024-02-22 00:49 | XMS_ITS | Encounter Summary ---
[place] [address] Care Team Providers Care Hybrid Powertrain Development Engineer Name Role Phone Hoang Castellanos APRN Primary Care Provider [phone] Encounter Details Date Type Department Care Team (Late st Contact Info) Description 06/23/2021 10:00 AM EST Office [place] [phone] Social History Tobacco Use Types Packs/Day Years [...] Sign Reading Time Taken Comments Blood Pressure 111/63 06/23/2021 9:38 AM EST Pulse 47 06/23/2021 9:38 AM EST Temperature - - Respiratory Rate - - Oxygen Saturation 100% 06/23/2021 9:38 AM EST Inhaled Oxygen Concentration - - Weight 95.3 kg (210 lb) 06/23/2021 9:38 AM EST Height 160 cm (5' 3) 06/23/2021 9:38 AM EST Body Mass Index 37.2 06/23/2021 9:38 AM EST documented in this encounter Progress Notes * Monique López RN - 06/23/2021 10:00 AM EST documented in this encounter Plan of Treatment Not on file documented as of this encounter Visit Diagnoses Not on filedocumented in this encounter Care Teams Hybrid Powertrain Development Engineer Relationship Specialty Start Date End Date Hoang Castellanos, SAM [address] [place] [address] PCP - General Family Medicine 03/12/20 documented as of this encounter
--- OUTSIDE RECORDS SUMMARY | 2024-02-22 00:49 | XMS_ITS | Encounter Summary ---
[place] [address] Care Team Providers Care Food Cashier Name Role Phone Hoang Castellanos APRN Primary Care Provider Reason for Referral * Psychiatric (Urgent) - Closed Specialty Diagnoses / Procedures Referred By Contac t Referred To Contact Psychiatry Diagnoses Syncope, unspecified syncope type Cornelio Rosado MD [facility] [place] [address] [facility] [address] [place] [address] Referral ID Status Reason Start Date Expiration Date V isits Requested Visits Authorized [id number] Closed Consult, Test & Treat 08/07/2021 08/07/2022 1 1 Reason for Visit * Reason Comments Chest Pain Encounter Details Date Type Department Care Team (Late st Contact Info) Description 08/07/2021 10:46 AM EST - 08/07/2021 4:16 PM EST Emergency [place] [id number] Xander Reese MD [facility] [place] [address] Syncope, unspecified syncope type Discharge Disposition: Home Social History Tobacco Use [...] Sign Reading Time Taken Comments Blood Pressure 144/86 08/07/2021 4:14 PM EST Pulse 54 08/07/2021 4:14 PM EST Temperature 36.5 ??C (97.7 ??F) 08/07/2021 10:[address] Respiratory Rate 16 08/07/2021 4:14 PM EST Oxygen Saturation 97% 08/07/2021 4:14 PM EST Inhaled Oxygen Concentration - - Weight 94.3 kg (208 lb) 08/07/2021 10:50 AM EST Height 160 cm (5' 3) 08/07/2021 10:50 AM EST Body Mass Index 36.85 08/07/2021 10:50 AM EST documented in this encounter Discharge Instructions * Discharge Instructions* Cornelio Rosado MD - 08/07/2021 3:28 PM EST Why you were in the Emergency department: You came to the Emergency Department because you had a syncopal event. In the ED we made sure you did not have a heart attack or a head injury. We are sending an urgent referral to psychiatry to follow up with your anxiety symptoms. When to call your doctor: - Chest pain, shortness of breath, fatigue with usual exertion, or new rest/night time symptoms. - Call if you develop a temp >100.5 - Your pain is not under control Future Appointments Date Time Provider Department Center 08/31/2021 10:00 AM Hoang Castellanos APRN [facility] 12/22/2021 9:45 AM Michael Espinoza MD [facility] PCP: Hoang Castellanos APRN at [phone] Your Doctor(s) at [facility]: Xander Reese MD - Attending physician Cornelio Rosado MD - Resident documented in this encounter Medications at Time [...] 04/24/2021 11/30/2021 lisinopriL (Zestril) 40 mg TabletIndications:Candy call essential hypertension TAKE ONE (1) TABLET BY [...] Sustained Release 24 hrIndications:Coronary artery disease involving [place]at coronary artery of y[place]at heart without angina pectoris TAKE ONE (1) TABLET BY MOUTH EVERY DAY 28 tablet 11 02/17/2021 01/18/2022 FeroSuL 325 mg (65 mg iron) Tablet TAKE ONE (1) TABLET BY MOUTH THREE TIMES A WEEK 12 tablet 11 11/26/2020 10/26/2021 prazosin (Minipress) 2 mg Capsule TAKE THREE (3) CAPSULES BY MOUTH DAILY AT BEDTIME 84 each 11 10/31/2020 09/28/2021 Ventolin HFA 90 mcg/actuation HFA Aerosol InhalerIndications:Position Description Manager randell obstructive pulmonary disease, unspecified COPD type [...] as of this encounter Progress Notes * Nohemi Washington MSW - 08/07/2021 3:17 PM EST PUBLISHING SPECIALIST went to speak with pt. Jeannie reported she was outside smoking a cigarette when she got dizzy and passed out. She stated her said she was down for 10 minutes. Pt came to ED via EMS. Pt was in trauma room, but was moved to ADM rooms. Pt stated her PTSD was triggered by being in trauma room, she voices feeling some relief being in ADM room. PUBLISHING SPECIALIST assisted pt in called her outpatient SARIKA Miller ([phone]). SARIKA Miller stated she was working remote today and would not be able to come get Jeannie to bring her home. She did say she would speak to her coworkers/form setter supervisor to determine if someone could provide transportation for the pt to get home. PUBLISHING SPECIALIST spoke to pt who reported that she had been experiencing a pinched nerve in her neck which has affected her arm and leg on the left side. She discussed having PTSD and 'mental health' problems, but did not go into detail. SARIKA Miller suggested a psych eval, which pt was open to. PUBLISHING SPECIALIST made medical team aware of pt's/CM concerns. PUBLISHING SPECIALIST also alerted team that pt was very hungry. RN to bring pt food. SARIKA Miller called PUBLISHING SPECIALIST, who handed phone to . stated he could put in emergency psych consult. SARIKA stated she could have a ride for pt if she was able to discharge by 4pm. PUBLISHING SPECIALIST inquired with team who will put discharge orders in now. PUBLISHING SPECIALIST confirmed with Angela that worker Roberto Carlos would pick pt up from the ED entrance at 4pm today. PUBLISHING SPECIALIST will relay that to pt and medical team. Nohemi Washington PUBLISHING SPECIALIST Emergency Department Roller Checker [phone] Pager: [phone] documented in this encounter ED Notes * Cornelio Rosado MD - 08/07/2021 11:29 AM EST ED PROVIDER NOTE Patient: Jeannie Rico Age (): 61 y.o. (1960) SUBJECTIVE CC: Chief Complaint Patient presents with ??? Chest Pain HPI: Jeannie Rico is a 61 y.o. female with PMH significant for asthma, diabetes, hypertension, hyperlipidemia, prior OR (PCI to prox and mid LAD, 2012) who presented to the ED for syncope. Patient was feeling lightheaded today in the morning so she went outside to smoke a cigarette when she subsequently syncopized for about 10 minutes until her woke her up. Denies any recent fevers, chills,nausea vomiting or diarrhea, chest pain or shortness of breath. ROS: A 10 point review of systems was performed and was negative aside from pertinent positives listed in HPI. OBJECTIVE VS: BP 147/86 Pulse (!) 48 Temp 36.5 ??C (97.7 ??F) (Oral) Resp 11 Ht 160 cm (5' 3) Wt 94.3 kg (208 lb) LMP (LMP Unknown) SpO2 95% BMI 36.85 kg/m?? PE: General: This is a well-nourished, well-developed female who appears her stated age. Skin: Color and turgor appropriate. Head: Atraumatic and normocephalic. Neck: Symmetrical with midline trachea. Eyes: Visual acuity grossly intact. Sclera anicteric. Ears: Hearing grossly intact to normal conversation. Nose: No bleeding or discharge. Chest/Pulmonary: No respiratory distress. Breathing unlabored. Cardiovascular: Warm extremities. Normal rate. Abdomen: Non-tender to palpation in all quadrants. No rebound or guarding. Musculoskeletal: No gross deformities to the extremities. Neurological: Attention, concentration, language, and fund of knowledge are within expected range. Speech is fluent with normal content. Psychiatric: Patient cooperative with appropriate behavior, thought content, and affect. ED Course: - Medications and fluid administered: Medications - No data to display - I have reviewed the labs, which are significant for: Recent Results (from the past 24 hour(s)) Troponin Result Value Ref Range Troponin-T <0.01 0.00 - 0.00 ng/mL Basic Metabolic Panel (non-fasting) Result Value Ref Range Glucose Lvl 93 65 - 199 mg/dL BUN 19 (H) 8 - 18 mg/dL Creatinine 0.91 0.70 - 1.20 mg/dL Sodium 138 135 - 145 mmol/L Potassium 4.4 3.5 - 5.0 mmol/L Chloride 100 98 - 107 mmol/L CO2 28 22 - 31 mmol/L Anion Gap 10 5 - 15 mmol/L Calcium 10.1 8.5 - 10.5 mg/dL Estimated GFR 68 >=60 mL/min/1.73 m?? Hemogram Result Value Ref Range WBC 6.8 4.0 - 9.5 x10(3)/mcL RBC 4.85 4.00 - 5.21 x10(6)/mcL Hemoglobin 14.7 11.7 - 15.5 g/dL Hematocrit 45.7 35.7 - 45.8 % MCV 94.2 82.6 - 94.4 fL MCH 30.3 27.1 - 32.0 pg MCHC 32.2 31.7 - 35.0 g/dL Platelets 215 145 - 357 x10(3)/mcL RDWSD 46.5 (H) 37.0 - 46.0 fL RDWCV 13.2 11.5 - 14.1 % MPV 10.1 7.6 - 12.9 fL nRBC % Auto 0.0 % nRBC Abs Auto 0.000 0.000 - 0.000 x10(3)/mcL Differential, Automated Result Value Ref Range Neutrophils % 62.7 % Neutr Abs (ANC) 4.25 1.70 - 6.10 x10(3)/mcL Lymphocytes % 26.0 % Lymphocytes Abs 1.8 0.9 - 3.2 x10(3)/mcL Monocytes % 8.8 % Monocyte Abs 0.6 0.3 - 0.9 x10(3)/mcL Eosinophils % 0.9 % Eosinophils Abs 0.1 0.0 - 0.4 x10(3)/mcL Basophils % 1.2 % Basophils Abs 0.1 0.0 - 0.1 x10(3)/mcL Immature Gran % 0.40 % Fartun Gran Abs 0.03 0.00 - 0.04 x10(3)/mcL Blue Tube HOLD Result Value Ref Range Blue Hold Sample in lab. Troponin Result Value Ref Range Troponin-T <0.01 0.00 - 0.00 ng/mL - I have reviewed the imaging, which is significant for: CT Head wo Contrast (Generic) Final Result No acute intracranial process. Thank you for letting us participate in the care of this patient. If you are a health care provider and have any questions regarding this report, please contact the number below. For patients who have questions please contact the health care analyst that requested your imaging first. Electronically signed by: Freddy Christian [facility] ([phone]), at 08/07/2021 11:41 AM - I have reviewed the EKG, which is significant for: afib ASSESSMENT & PLAN MDM: Jeannie Rico is a 61 y.o. female with past medical history of prior OR as well as cervical myelopathy who presents after a syncopal event. In the emergency department she was hemodynamically stable (chronically bradycardic) with appropriate mentation. Physical exam unremarkable. Bedside ultrasound demonstrates wall motion normalities which are not favored to be new given prior OR and nonischemic EKG. Patient did not have a positive delta troponin. Rest of lab work including BMP, CBC and headCT unremarkable. Patient's nursing home social worker reached out to [facility] social work for psychiatric evaluation given recent stress. Outside nursing home social worker describes increased distress due to housing insecurity as well as pending surgery for cervical process. In the emergency department she denied SI or HI and was mentating a ppropriately and preferred urgent referral to outpatient psychiatry. This MD spoke with outpatient can striper and confirmed no statements of SI or HI. Urgent referral to psychiatry placed. PLAN: Patient will be discharged home, urgent referral to psychiatry placed Cornelio Rosado MD Resident 08/07/21 [id number] Associated attestation - Xander Reese MD - 08/07/2021 7:51 PM EST ED ATTENDING ATTESTATION NOTE The patient was seen in conjunction with the resident physician. I have independently performed thekey portions of the history and physical exam. I have personally reviewed nursing notes, vital signs, and diagnostic studies including labs, imaging studies and EKGs. I have discussed the details of the case with the resident and agree with the assessment and plan as described in the resident's note. Briefly, 61 y.o. female who presents with a history of coronary artery disease status post PCI to the proximal and mid LAD in 2013 as well as cervical myelopathy with a recent appointment yesterday with Dr. Puente in the neurosurgery clinic as well as Dr. Bass in the neurology clinic on August 04. The patient reports she has been under increased psychosocial stressors with housing insecurity but when out her front door this morning he began to feel dizzy and lightheaded and then woke up to her poking her. She reports that he said she was unconscious for approximately 10 minutes. Shedid not have any palpitations earlier. No other headache vision changes chest pain dyspnea or new weakness or numbness. She notes that the symptoms in the lower extremities and weakness are the symptoms she has been experiencing for which she saw Dr. Puente. We received signout from the paramedics. Reviewed prehospital EKG. On the initial evaluation she was speaking in full sentences, had a normal mental status, she does not have any cranial nerve deficits. She did not have any posterior neck pain and no pain with passive and active range of motion. There is no midline tenderness. Her heart rate was a regular bradycardia, her lungs were clear bilaterally, her abdomen was soft. She had grossly equal strength in the upper lower extremities, she had mildly decreased strength in the right lower extremity that she reports that at her baseline. Her sensation was at her baseline and intact. Her speech was fluent. She did not have any homicidal or suicidal ideation. Her EKG showed a sinus bradycardia with no ST elevation. I reviewed her telemetry that showed his bradycardia of note she had bradycardia in her clinic appointment as well. Her labs had a grossly normal metabolic panel. Had a normal hemoglobin. Had troponin negative x2 by approximately 3 hours. Discussed discharge and follow-up with her outpatient providers as previously scheduled. At that time did not have any further questions and was getting a ride home from a friend. We later received message from social work that her can striper was in touch with her and concern. We asked the patient who described having increasing PTSD and being in the trauma bay on her initial presentation but didnot feel overtly homicidal or suicidal. Dr. Rosado also discussed the case with her outpatient can striper. Assessment: Syncope without findings of intracranial hemorrhage, acute cardiac ischemia, I have a low suspicion for pulmonary embolism. No signs of bleeding and no significant neurologic abnormalities off her baseline. I think a stroke or a seizure is highly unlikely. After her CT head, observationand cardiac evaluation she is medically stable for discharge home and follow-up as an outpatient. Xander Reese MD documented in this encounter Miscellaneous Notes * ED Triage - Ever Sotelo RN - 08/07/2021 10:54 AM EST Per EMS, pt was smoking a cigarette outside when her found her passed out. Pt is reporting right sided chest pain and neck pain, denies SOB. HPI (Adult) Stated Reason for Visit: pt passed out in chair at home. History Obtained From: EMS Medications/Treatments Prior to Arrival: none documented in this encounter Plan of Treatment Scheduled Orders Name Type Priority Associated Diagnoses Orde r Schedule EKG 12 Lead ECG STAT One Time for 1 Occurrences starting 08/07/2021 until 08/07/2021 Scheduled Referrals Name Type Priority Associated Diagnoses Orde r Schedule Referral to Psychiatry Outpatient Referral Routine Syncope, unspecified syncope type Ordered: 08/07/2021 documented as of this encounter Procedures Procedure Name Priority Date/Time Associated Diagnosis Comments HC TROPONIN T STAT 08/07/2021 1:[address] HEAD WO CONTRAST (GENERIC) STAT 08/07/2021 11:38 AM EST HEMOGRAM STAT 08/07/2021 11:00 AM EST DIFFERENTIAL, AUTOMATED STAT 08/07/2021 11:00 AM EST BLUE TUBE HOLD STAT 08/07/2021 11:00 AM EST HC CBC,PLT & AUTO DIFF STAT 08/07/2021 11:00 AM EST HC TROPONIN T STAT 08/07/2021 11:00 AM EST BASIC METABOLIC PANEL (NON-FASTING) STAT 08/07/2021 11:00 AM EST EKG 12-LEAD STAT 08/07/2021 10:47 AM EST documented in this encounter Results * Troponin (08/07/2021 1:49 PM EST) Troponin-T <0.01 0.00 - 0.00 ng/mL [facility] Comment: The 99th percentile for Troponin T is less than 0.01 ng/mL, any detectable cTnT concentration using this assay should be considered elevated. According to the third universal definition of myocardial infarction the following criteria with a clinical presentation consistent with acute myocardial ischemia meets the diagnosis for a myocardial infarction (OR). Detection of a rise and/or fall of cTnT, with at least one value greater than the 99th percentile (> or = 0.01) and with at least one of the following ?? Symptoms of ischemia ?? New or presumed new significant DH-lzgitwk-C wave (ST-T) changes or new left bundle [...] additional sample may be indicated. Reference: Third [place] Definition of Myocardial Infarction. Journal of the [place] 2012;60:1581-98 Blood 08/07/2021 1:49 PM EST 08/07/2021 2:01 PM EST Narrative Resulting Agency Comment Spec In Lab Xander Reese MD CHEMISTRY ORDERABL ES [facility] [place] [address] * CT Head wo Contrast (Generic) (08/07/2021 11:38 AM EST) Anatomical Region Laterality Modality Head Computed Tomogra phy 08/07/2021 11:5 4 AM EST Impressions 08/07/2021 11:41 AM EST No acute intracranial process. Thank you for letting us participate in the care of this patient. ??If you are a health care provider and have any questions regarding this report, please contact the number below. ??For patients who have questions please contact the health care analyst that requested your imaging first. ? Electronically signed by: Freddy Christian [facility] ([phone]), at 08/07/2021 11:41 AM Narrative 08/07/2021 11:41 AM EST EXAMINATION: CT HEAD WO CONTRAST (GENERIC) CLINICAL HISTORY: Syncope, simple, normal neuro exam TECHNIQUE: CT Head was performed without contrast COMPARISON: CT head 05/31/2005. FINDINGS: There is no acute intracranial hemorrhage. ??There is no mass effect, midline shift or extra-axial fluid collection. The ventricles are normal in size. The visualized paranasal sinuses and mastoid air cells are mostly clear. The visualized orbits are unremarkable in appearance. ??The osei-white differentiation is preserved. ??No aggressive osseous lesions. Procedure Note Freddy Christian MD - 08/07/2021 EXAMINATION: CT HEAD WO CONTRAST (GENERIC) CLINICAL HISTORY: Syncope, simple, normal neuro exam TECHNIQUE: CT Head was performed without contrast COMPARISON: CT head 05/31/2005. FINDINGS: There is no acute intracranial hemorrhage. There is no masseffect, midline shift or extra-axial fluid collection. The ventricles are normalin size. The visualized paranasal sinuses and mastoid air cells are mostlyclear. The visualized orbits are unremarkable in appearance. The osei-white differentiation is preserved. No aggressive osseous lesions. IMPRESSION No acute intracranial process. Thank you for letting us participate in the care of this patient. If youare a health care provider and have any questions regarding this report,please contact the number below. For patients who have questions please contactthe health care analyst that requested your imaging first. Xander Reese MD IMG CT ORDERABLES * Blue Tube HOLD (08/07/2021 11:00 AM EST) Blue Hold Sample in lab. [facility] Blood Venous Draw / Unknown 08/07/2021 11:00 AM EST 08/07/2021 11:14 AM EST Cornelio Rosado MD HEMATOLOGY OR DERABLES [facility] [place] [address] * Differential, Automated (08/07/2021 11:00 AM EST) Neutrophils % 62.7 % [facility] Neutr Abs (ANC) 4.25 1.70 - 6.10 x10(3)/[facility] Lymphocytes % 26.0 % [facility] Lymphocytes Abs 1.8 0.9 - 3.2 x10(3)/[facility] Monocytes % 8.8 % [facility] Monocyte Abs 0.6 0.3 - 0.9 x10(3)/[facility] Eosinophils % 0.9 % [facility] Eosinophils Abs 0.1 0.0 - 0.4 x10(3)/[facility] Basophils % 1.2 % [facility] Basophils Abs 0.1 0.0 - 0.1 x10(3)/[facility] Immature Gran % 0.40 % [facility] Comment: Immature granulocytes(IG's)percentage and absolute count will include metamyelocytes, myelocytes, and promyelocytes. Blood smears from CBCs yielding IG's will be scanned manually for concordance. If this scan disagrees with the automated IG or if promyelocytes are noted, a manual differential will be performed. Fartun Gran Abs 0.03 0.00 - 0.04 x10(3)/[facility] Blood 08/07/2021 11:0 0 AM EST 08/07/2021 11:14 AM EST Narrative Resulting Agency Comment Spec In Lab Cornelio Rosado MD HEMATOLOGY OR DERABLES Performing Organization Address City/State/[facility] Co de Phone Number [facility] [place] [address] * (ABNORMAL) Hemogram (08/07/2021 11:00 AM EST) WBC 6.8 4.0 - 9.5 x10(3)/[facility] RBC 4.85 4.00 - 5.21 x10(6)/[facility] Hemoglobin 14.7 11.7 - 15.5 g/dL [facility] Hematocrit 45.7 35.7 - 45.8 % [facility] MCV 94.2 82.6 - 94.4 fL [facility] MCH 30.3 27.1 - 32.0 pg [facility] MCHC 32.2 31.7 - 35.0 g/dL [facility] Platelets 215 145 - 357 x10(3)/[facility] RDWSD 46.5(H) 37.0 - 46.0 [facility] RDWCV 13.2 11.5 - 14.1 % [facility] MPV 10.1 7.6 - 12.9 [facility] nRBC % Auto 0.0 % [facility] nRBC Abs Auto 0.000 0.000 - 0.000 x10(3)/[facility] Blood 08/07/2021 11:0 0 AM EST 08/07/2021 11:14 AM EST Narrative Resulting Agency Comment Spec In Lab Cornelio Rosado MD HEMATOLOGY OR DERABLES [facility] [place] [address] * (ABNORMAL) Basic Metabolic Panel (non-fasting) (08/07/2021 11:00 AM EST) Glucose Lvl 93 65 - 199 mg/dL [facility] Comment:Diabetes: >=200 mg/d L plus symptoms BUN 19(H) 8 - 18 mg/dL [facility] Creatinine 0.91 0.70 - 1.20 mg/dL [facility] Sodium 138 135 - 145 mmol/L [facility] Potassium 4.4 3.5 - 5.0 mmol/L [facility] Comment: Please note: ??Patients with WBC >100,000 may have falsely elevated Potassium levels. ??For accurate Potassium quantification in these patients send serum separator tube (gold top) for subsequent determinations. ??Contact the Clinical Chemistry Laboratory if there are any questions. Chloride 100 98 - 107 mmol/L [facility] CO2 28 22 - 31 mmol/L [facility] Anion Gap 10 5 - 15 mmol/L [facility] Calcium 10.1 8.5 - 10.5 mg/dL [facility] Estimated GFR 68 >=60 mL/min/1. 73 m?? [facility] Comment: This patient? s estimated glomerular filtration rate (eGFR) is between 68 mL/min/1.73 m2 (patients with less muscle mass) and 79 mL/min/1.73 m2 (patients with more muscle mass) [...] and symptoms in addition to eGFR. Blood 08/07/2021 11:0 0 AM EST 08/07/2021 11:14 AM EST Narrative Resulting Agency Comment Spec In Lab Xander Reese MD CHEMISTRY ORDERABL ES Performing Organization Address [facility] Co de Phone Number [facility] [place] [address] * Troponin (08/07/2021 11:00 AM EST) Troponin-T <0.01 0.00 - 0.00 ng/mL [facility] Comment: The 99th percentile for Troponin T is less than 0.01 ng/mL, any detectable cTnT concentration using this assay should be considered elevated. According to the third universal definition of myocardial infarction the following criteria with a clinical presentation consistent with acute myocardial ischemia meets the diagnosis for a myocardial infarction (OR). Detection of a rise and/or fall of cTnT, with at least one value greater than the 99th percentile (> or = 0.01) and with at least one of the following ?? Symptoms of ischemia ?? New or presumed new significant RI-bajoske-O wave (ST-T) changes or new left bundle [...] additional sample may be indicated. Reference: Third [place] Definition of Myocardial Infarction. Journal of the [employer] 2012;60:1581-98 Blood 08/07/2021 11:0 0 AM EST 08/07/2021 11:14 AM EST Narrative Resulting Agency Comment Spec In Lab Xander Reese MD CHEMISTRY ORDERABL ES Performing Organization Address [facility] [place] Co de Phone Number [facility] [place] [address] * EKG 12 Lead (08/07/2021 10:47 AM EST) Ventricular rate 46 BPM MUSE SYSTEM Atrial Rate 46 BPM MUSE SYSTEM P-R Interval 126 ms MUSE SYSTEM QRS Duration 76 ms MUSE SYSTEM Q-T Interval 448 ms MUSE SYSTEM QTC Calculated (Bezet) 392 ms MUSE SYSTEM Calculated P [place] 43 degrees MUSE SYSTEM Calculated R [place] 62 degrees MUSE SYSTEM Calculated T [place] 42 degrees MUSE SYSTEM INTERPRETATION Sinus bradycardia Otherwise normal ECG When compared with ECG of 08-SEP-2018 19:26, No significant change was found I personally reviewed the tracing and edited the fellows interpretation Confirmed by fellow Trenton Cloud ([id number]) on 08/08/2021 12:29:27 PM Confirmed by Tabitha Aguilar ([id number]) on 08/08/2021 1:45:23 PM MUSE SYSTEM 08/07/2021 10:4 7 AM EST 08/08/2021 1:45 PM EST Xander Reese MD ECG ORDERABLES MUSE SYSTEM documented in this encounter Visit Diagnoses Diagnosis Syncope, unspecified syncope type documented in this encounter Care Teams Food Cashier Relationship Specialty Start Date End Date Hoang Castellanos, NITROGEN OPERATOR [address] [place] [address] PCP - General Family Medicine 03/12/20 documented as of this encounter
--- OUTSIDE RECORDS SUMMARY | 2024-02-22 00:49 | XMS_ITS | Encounter Summary ---
Author Organization [facility] [place] [address] Care Team Providers Care Equipment Operator/Laborer Name Role Phone Hoang Castellanos APRN Primary Care Provider Reason for Referral * Diagnostic Test (Routine) - Closed Specialty Diagnoses / Procedures Referred By Contac t Referred To Contact Radiology Diagnoses Myelopathy Procedures MRI Thoracic Spine wo Contrast (Generic) Gurjit Bass MD [facility] [place] [address] [facility] [address] [place] [address] Referral ID Status Reason Start Date Expiration Date V isits Requested Visits Authorized [id number] Closed Specialty Service Requested 03/26/2021 09/23/2022 1 1 Reason for Visit * Diagnostic Test (Routine) - Closed Specialty Diagnoses / Procedures Referred By Contac t Referred To Contact Radiology Diagnoses Myelopathy Procedures MRI Thoracic Spine wo Contrast (Generic) Gurjit Bass MD [facility] [address] [facility] [address] [place] [address] Referral ID Status Reason Start Date Expiration Date V isipamela Requested Visits Authorized [id number] Closed Specialty Service Requested 03/26/2021 09/23/2022 1 1 Encounter Details Date Type Department Care Team (Latest Contact Info) Description 06/24/2021 1:30 PM EST - 06/24/2021 11:59 PM EST Hospital Encounter Radiology MRI at [facility] [address] [place] [address] Gurjit Bass MD [facility] [place] [address] Myelopathy Discharge Disposition: Home Social History Tobacco Use [...] 11 04/24/2021 11/30/2021 lisinopriL (Zestril) 40 mg TabletIndications:Benkallie n essential hypertension TAKE ONE (1) TABLET [...] Sustained Release 24 hrIndications:Coronary artery disease involving [place] coronary artery of [place] heart without angina pectoris TAKE ONE (1) [...] 09/28/2021 Ventolin HFA 90 mcg/actuation HFA Aerosol InhalerIndications:[place] rand[place] obstructive pulmonary disease, unspecified COPD type [...] Procedure Name Priority Date/Time Associated Diagnosis Comments MRI THORACIC SPINE WITHOUT CONTRAST Routine 06/24/2021 2:28 PM EST Myelopathy documented in this encounter Results * MRI Thoracic Spine wo Contrast (Generic) (06/24/2021 2:28 PM EST) Anatomical Region Laterality Modality T-spine Magnetic Resonan ce Impressions 06/24/2021 3:53 PM EST No evidence for thoracic spinal cord myelopathy. Minimal degenerative change. Thank you for letting us participate in the care of this patient. ??If you are a health care provider and have any questions regarding this report, please contact the number below. ??For patients who have questions please contact the health vocational childcare teacher that requested your imaging first. ? Narrative 06/24/2021 3:53 PM EST EXAMINATION: MRI THORACIC SPINE WO CONTRAST (GENERIC) CLINICAL HISTORY: Mid-back pain, neuro deficit Patient has had unremarkable MRI brain and L-spine. ??C-spine shows cord improved cord compression. ??Patient is clinically myelopathic, with neurogenic bladder symptoms. ??Rule out dual pathology in thoracic spine TECHNIQUE: MRI of the thoracic spine performed without intravenous contrast administration. Routine protocol COMPARISON: None FINDINGS: Alignment is near-anatomic. Preservation of disc space and vertebral body heights. No spinal canal narrowing. Normal size and signal intensity of the thoracic spinal cord. 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 Mild inferior endplate edema at T10 is likely degenerative in nature. Neural foramen are patent. Procedure Note Freddy Christian MD - 06/24/2021 EXAMINATION: MRI THORACIC SPINE WO CONTRAST (GENERIC) CLINICAL HISTORY: Mid-back pain, neuro deficit Patient has had unremarkable MRI brain and L-spine. C-spine shows cordimproved cord compression. Patient is clinically myelopathic, with neurogenicbladder symptoms. Rule out dual pathology in thoracic spine TECHNIQUE: MRI of the thoracic spine performed without intravenous contrastadministration. Routine protocol COMPARISON: None FINDINGS: Alignment is near-anatomic. Preservation of disc space and vertebralbody heights. No spinal canal narrowing. Normal size and signal intensity ofthe thoracic spinal cord. Multiple vertebral body hemangiomas areidentified, largest at T10 and L1. Mild inferior endplate edema at T10 is likely degenerative in nature. Neural foramen are patent. IMPRESSION No evidence for thoracic spinal cord myelopathy. Minimal degenerative change. Thank you for letting us participate in the care of this patient. If youare a health care provider and have any questions regarding this report,please contact the number below. For patients who have questions please contactthe health vocational childcare teacher that requested your imaging first. Gurjit Bass MD IMG MRI ORDERABLES documented in this encounter Visit Diagnoses Diagnosis Myelopathy Unspecified disease of spinal cord documented in this encounter Care Teams Equipment Operator/Laborer Relationship Specialty Start Date End Date Hoang Castellanos, SAM [address] [place] [address] PCP - General Family Medicine 03/12/20 documented as of this encounter
--- OUTSIDE RECORDS SUMMARY | 2024-02-22 00:49 | XMS_ITS | Encounter Summary ---
Author Organization [facility] Address [facility] [place] [address] Care Team Providers Care Advertising Analyst Name Role Phone Hoang Castellanos APRN Primary Care Provider [phone] Reason for Referral * Home Health Care (Routine) - Closed Specialty Diagnoses / Procedures Referred By Contdavide t Referred To Contact Physical Therapy Diagnoses Cervicalgia Cervical spinal stenosis Generalized weakness Hoang Castellanos APRN [address] [place] [address] Vis[facility] & [address] [address] Referral ID Status Reason Start Date Expiration Date V isits Requested Visits Authorized [id number] Closed Continuity of Care 08/31/2021 02/27/2022 12 12 Encounter Details Date Type Department Care Team (Latest Contact Info) Description 08/31/2021 10:00 AM EST TH Visit (TeleHealth) Primary Care at [facility] [address] [facility] [place] [address] Hoang Castellanos APRN [address] [place] [address] Cervicalgia; Cervical spinal stenosis; Generalized weakness; Anxiety Social History Tobacco Use Types Packs/Day Years [...] Pressure - - Pulse - - Temperature - - Respiratory Rate - - Oxygen Saturation - - Inhaled Oxygen Concentration - - Weight 95.3 kg (210 lb) 08/31/2021 9:49 AM EST Height 160 cm (5' 3) 08/31/2021 9:49 AM EST Body Mass Index 37.2 08/31/2021 9:49 AM EST documented in this encounter Progress Notes * Hoang Castellanos, ASSOCIATE PROFESSOR OF HISTORY - 08/31/2021 10:00 AM EST [facility] Telehealth Encounter Nurse Call: Patient called to notify of telehealth visit. For patients in facilities or with caregivers, these were also notified. BEST PHONE NUMBER: Is this a cell phone number: no Patient or family advised that telehealth visit [...] who presents for a telehealth visit with [facility] Primary Care. She is having surgery coming up but doesn't know the date She states it hasn't been scheduled yet due to covid She wants to discuss physical therapy and would like to get that going She had someone coming to the house but they told her they wouldn't come again until she had surgery. She wants to be able to do stuff again and feel normal Weakness in both legs, getting progressively worse. Difficulty lifting legs at times. Lower back pain. Neck feels like it is going to fall off head Pain is aggravated by emotional stress Completed the CT scan on 08/18-has not heard anything since then. Called Dr. Puente's office this morning. She was sent to store promoter-awaiting inpatient bed to open up. Neck pain Stressful-emotional pain Supposed to get choices plus care, needs to move apts by November 21 [facility] is helping but they are not getting anywhere either. Current CM is Angela ([phone]). Feeling hopeless, would like to be able to get out of the house Hard to go shopping or go to doctor's appts d/t pain Has a roller walker Feels totally exhausted getting around Has considered assisted living-Brandon's CM (Roberto Carlos) is trying to get into there as well. They have section VIII. 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 Neurological: Mental Status: She is alert. Psychiatric: Attention and Perception: Attention normal. Mood and Affect: Affect is tearful. Speech: Speech normal. Behavior: Behavior normal. Behavior is cooperative. Thought Content: Thought content normal. Assessment and Plan: Diagnoses and all orders for this visit: Cervicalgia - Referral to Home Health - Clinic Use Cervical spinal stenosis - Referral to Home Health - Clinic Use Generalized weakness - Referral to Home Health - Clinic Use Anxiety Cervical myelopathy due to cervical stenosis-she was scheduled for surgery with Dr. Puente and then canceled due to Covid restrictions, and visitor policy. She has been in contact with Dr. Puente's office and is awaiting a new surgical date. Patient would like to start physical therapy as she has noticed she is progressively weaker due to inactivity. She should continue to use walker and rest as able. Patient with increased anxiety related to housing issues. They will be losing housing at the end ofApril and are unsure where they will be going next. The do of a section 8 Nicki in egg caser from [employer] who are assisting both her and her , who are both disabled. I did call and leave a nonspecific message for SARIKA Miller to see if there is any support I can offer regarding housing, psychiatry, etc. Follow-up: Return in about 3 months (around 11/28/2021) for Either In Person or Telehealth anxiety. A total of 30 minutes was spent on the day of the visit for completion of this encounter. (Established patient total visit time: 51586 - 20min, 74879 - 30 min, 93855 - 40 min; New patient total visit times: 36588 - 30 min, 21560 - 45 min, 58084 - 60 min) documented in this encounter Plan of Treatment Scheduled Referrals Name Type Priority Associated Diagnoses Orde r Schedule Referral to Home Health - Clinic Use Outpatient Referral Routine Cervicalgia Cervical spinal stenosis Generalized weakness Ordered: 08/31/2021 documented as of this encounter Visit Diagnoses Diagnosis Cervicalgia Cervical spinal stenosis Spinal stenosis in cervical region Generalized weakness Other malaise and fatigue Anxiety Anxiety state, unspecified documented in this encounter Care Teams Advertising Analyst Relationship Specialty Start Date End Date Hoang Castellanos APRN [address] [place] [address] PCP - General Family Medicine 03/12/20 documented as of this encounter
--- OUTSIDE RECORDS SUMMARY | 2024-02-22 00:49 | XMS_ITS | Encounter Summary ---
Author Organization [facility] Address [facility] [place] [address] Care Team Providers Care Crawler Tractor Operator Name Role Phone Hoang Castellanos APRN Primary Care Provider Encounter Details Date Type Department Care Team (Late st Contact Info) Description 05/28/2021 Notes Only Primary Care at [facility] [address] [place] [phone] Flavia Zamora Social History Tobacco Use Types Packs/Day Years [...] as of this encounter Progress Notes * Flavia Ochoa - 05/28/2021 2:32 PM EDT Patient expressed need for winter clothing and qualifies to receive a $20 voucher to [facility] [place]. documented in this encounter Plan of Treatment Not on file documented as of this encounter Visit Diagnoses Not on filedocumented in this encounter Care Teams Crawler Tractor Operator Relationship Specialty Start Date End Date Hoang Castellanos APRN [address] [place] [address] PCP - General Family Medicine 03/12/20 documented as of this encounter
--- OUTSIDE RECORDS SUMMARY | 2024-02-22 00:49 | XMS_ITS | Encounter Summary ---
Author Organization [facility] [place] [address] Care Team Providers Care Scaffold Builder Name Role Phone Hoang Castellanos APRN Primary Care Provider Reason for Visit * Reason Onset Date Comments TeleHealth 07/28/2021 Encounter Details Date Type Department Care Team (Late st Contact Info) Description 07/28/2021 [place] [id number] Gurjit Bass MD [facility] [place] [address] TeleHealth Social History Tobacco Use Types Packs/Day [...] Telephone Encounter - Prudence Graff RN - 07/28/2021 1:49 PM EST Spoke to this patient by phone to review their medications and allergies prior to their upcoming tele-appointment with the Neurology provider. Medications and allergies reviewed, verified and updatedas needed. documented in this encounter Plan of Treatment Not on file documented as of this encounter Visit Diagnoses Not on filedocumented in this encounter Care Teams Scaffold Builder Relationship Specialty Start Date End Date Hoang Castellanos, SMA [address] [place] [address] PCP - General Family Medicine 03/12/20 documented as of this encounter
--- OUTSIDE RECORDS SUMMARY | 2024-02-22 00:49 | XMS_ITS | Encounter Summary ---
Author Organization [facility] [address] Care Team Providers Care Office Automation Clerk Name Role Phone Hoang Castellanos APRN Primary Care Provider Encounter Details Date Type Department Care Team (Latest Contact Info) Description 06/09/2021 2:00 PM EST TH Visit (TeleHealth) [place] [address] Campos Puente MD [facility] [place] [address] Cervical spondylosis Social History Tobacco Use Types [...] as of this encounter Progress Notes * Campos Puente MD - 06/09/2021 2:00 PM EST I telephoned Kyra Mittal, Ms. Rico's sister and DPOA. I explained the nature of her problem, cervical spondylotic myelopathy. I explained that I thought that without treatment it was likely that her disability would progress. I stated that I thought the goal of surgery would be to try to prevent further deterioration and no assurances could be given of improvement, but we would hope that with time she could improve following decompression. We reviewed the nature of anterior cervical discectomy and the risks of anesthesia, infection, bleeding, injury to the trachea, esophagus, recurrent laryngeal nerve, great vessels. We reviewed the risk of injury to the spinal cord including the possi bility of paralysis or worsening of her myelopathy. We reviewed the options of allograft or autograft and why I would recommend allograft. We discussed that with Ms. Rico's history of smoking her chances of fusion were lower. We discussed the possibility of failure of the fusion or failure of the instrumentation. She appeared to understand and would be in favor of proceeding with surgery. I will send her a surgical consent form for her to sign and mail back to me. All questions were answered. documented in this encounter Plan of Treatment Not on file documented as of this encounter Visit Diagnoses Diagnosis Cervical spondylosis Cervical spondylosis without myelopathy documented in this encounter Care Teams Office Automation Clerk Relationship Specialty Start Date End Date Hoang Castellanos, [employer]OP[employer] [address] [place] [address] PCP - General Family Medicine 03/12/20 documented as of this encounter
--- OUTSIDE RECORDS SUMMARY | 2024-02-22 00:49 | XMS_ITS | Encounter Summary ---
[place] [address] Care Team Providers Care Ship'S Carpenter Name Role Phone Hoang Castellanos APRN Primary Care Provider Reason for Referral * Consultation (Routine) - Closed Specialty Diagnoses / Procedures Referred By Contac t Referred To Contact Primary Care Diagnoses Financial difficulties Hoang Castellanos APRN [address] [place] [address] Flavia Zamora Referral ID Status Reason Start Date Expiration Date V isits Requested Visits Authorized [id number] Closed Consult, Test & Treat 2021 2022 12 12 * Consultation (Routine) - Closed Specialty Diagnoses / Procedures Referred By Contac t Referred To Contact Endocrinology Diagnoses Osteoporosis, unspecified osteoporosis type, unspecified pathological fracture presence Hoang Castellanos APRN [address] [place] [address] [facility] Endocrinology [address] [place] [phone] Referral ID Status Reason Start Date Expiration Date V isits Requested Visits Authorized [id number] Closed Specialty Service Requested 2021 2022 12 12 Reason for Visit * Reason Comments Pre-op Exam Encounter Details Date Type Department Care Team (Latest Contact Info) Description 2021 9:30 AM EDT Office Visit Primary Care at [facility] [address] [facility] [place] [address] Hoang Castellanos, SAM [address] [place] [address] Preop examination; Cervicalgia; Preop cardiovascular exam; Health care maintenance; Smokes cigarettes; Type 2 diabetes mellitus without complication, without long-term current use of insulin; Chronic obstructive pulmonary disease, unspecified COPD type; Osteoporosis, unspecified osteoporosis type, unspecified pathological fracture presence; Financial difficulties Social History Tobacco Use Types Packs/Day Years [...] Sign Reading Time Taken Comments Blood Pressure 120/80 2021 9:29 AM EDT Pulse 45 2021 9:29 AM EDT Temperature - - Respiratory Rate 14 2021 9:29 AM EDT Oxygen Saturation 95% 2021 9:29 AM EDT Inhaled Oxygen Concentration - - Weight 94.3 kg (208 lb) 2021 9:29 AM EDT Height 160 cm (5' 3) 2021 9:29 AM EDT Body Mass Index 36.85 2021 9:29 AM EDT documented in this encounter Progress Notes * Hoang Castellanos, WELDING MACHINE OPERATOR [employer] - 2021 9:30 AM EDT Subjective: Patient ID: Jeannie Rico is a 61 y.o. female. ?? Reason for surgery - Arthodesis, decompression below C2 ?? HPI - Pain in her neck for years. ?? Patient's concerns about surgery - patient is concerned about where she is going after surgery. She also has to quit smoking need to have a prescription. ?? Patient's difficulties with anesthesia in the past - No problems ?? Date of surgery - 06/26/2021 ?? Surgical procedure - Decompression of C2 ?? Surgeon - Dr. Campos Puente ?? Advance Directives - Y ?? Durable Power of Car Supplier for Health Care - [] No; [x] Yes (identify): Sister, Mellisa Mittal ?? Patient's Preferred Medical Decision Maker and Relationship to Patient - Sister Cardiology clearance 04/30/21-Dr. Chase Talbot Preoperative risk stratification. She has a low RCRI index of 0 or at most 1 point (see below). She has poor exercise capacity and iswheel chair bound mostly. She has had a normal echo and a normal nuclear stress test recently. She also had a recent ZioPatch which did not show any arrhythmias of conduction disturbances. She is cleared to undergo her spine surgery with a low and acceptable risk of hernan procedural myocardial adverse events. No history of blood clot No previous problems with anesthesia No family history of problems with anesthesia No history of sleep apnea COPD Stable on Incruse Ellipta, Advair, Spiriva, Albuterol Currently smoking 8-10 cig per day Working on smoking cessation nicoderm patches cause palpitations Currently using Albuterol twice per day Cold weather aggravates Does not have recent PFTs DM A1c 5.7 on 10/14/20 Doing COVID booster shot on 06/10 Osteoporosis Repeat DXA scan yesterday, demonstrates worsening Taking Fosamax weekly Interested in moving into assisted living with partner, Brandon Choices For Care Patient Active Problem List Diagnosis Code ??? [...] M25.571, G89.29 ??? Bilateral leg edema R60.0 Past Surgical History: Procedure Laterality Date ??? [...] BIOPSY performed by Ken Sanders MD at [facility] ENDOSCOPY ??? PRO UPPER GI ENDOSCOPY, BIOPSY N/A 09/19/2018 UPPER GASTROINTESTINAL ENDOSCOPY,WITH BIOPSY SINGLE OR MULTIPLE (WRVU 2.49) performed by Tyron Mercado MD at [facility] ENDOSCOPY ??? TONSILLECTOMY ??? UPPER GI ENDOSCOPY, EXAM 12/04/2010 UPPER GI ENDOSCOPY performed by DEE WRIGHT at [facility] ENDOSCOPY Allergies Allergen Reactions ??? Morphine Shortness Of Breath ??? Sumatriptan Hives ??? Oxycodone Other (See Comments) drunk feeling, dizzy ??? Oxycodone-Acetaminophen Other (See Comments) dizziness, feels drunk ??? Chantix [Varenicline] psychotic ??? Imitrex [Sumatriptan Succinate] Hives ??? Prednisone Other reaction(s): aggitation Latex Allergy - [x] No; [] Yes Current Outpatient Medications on File Prior to Visit Medication Sig Dispense Refill ??? clonazePAM (KlonoPIN) 0.5 mg Tablet ??? Acidophilus Capsule ??? tiZANidine (Zanaflex) 4 mg Tablet Take 1 tablet by mouth every 6 hours as needed. 30 tablet 0 ??? Advair Diskus 500-50 mcg/dose Disk with Device USE 1 INHALATION TWICE A DAY 60 each 11 ??? lisinopriL (Zestril) 40 mg Tablet TAKE ONE (1) TABLET BY MOUTH EVERY DAY 28 tablet 11 ??? [DISCONTINUED] Acidophilus Capsule ??? fluticasone propion-salmeteroL (ADVAIR) 500-50 mcg/dose Disk with Device Inhale 1 puff into thelungs every 12 hours. ??? alendronate (Fosamax) 70 mg Tablet Take [...] MOUTH EVERY DAY 28 tablet 11 ??? [DISCONTINUED] Acidophilus Capsule TAKE TWO (2) CAPSULES BY [...] 30 tablet 1 ??? Miscellaneous Medical Supply [facility] 1 walker on wheels with seat 1 each 0 ??? ibuprofen (Advil;Motrin) 800 mg Tablet Take 1 tablet by mouth every 8 hours as needed for Pain.90 tablet 5 ??? sertraline (ZOLOFT) 100 mg Tablet Take 2 tablets by mouth 2 times daily. ??? multivitamin (THERAGRAN) Tablet Take 1 tablet by mouth daily. ??? lancets 30 gauge Misc 1 each by [facility].(Non-Drug; Combo Route) route daily. 100 each 3 ??? ARIPiprazole (Abilify) 5 mg Tablet Take 5 mg by mouth daily. ??? alum-mag hydroxide-simeth (Maalox) 200-200-20 mg/5 mL Suspension Take 10 mLs by mouth every 6 hours as needed for Indigestion. ??? MARIJUANA ORAL Take by mouth. No current facility-administered medications on file prior to visit. Visit Vitals BP 120/80 Pulse (!) 45 Resp 14 Ht 160 cm (5' 3) Wt 94.3 kg (208 lb) LMP (LMP Unknown) SpO2 95% BMI 36.85 kg/m?? BP Readings from Last 3 Encounters: 05/27/21 120/80 04/30/21 114/60 04/07/21 125/57 Wt Readings from Last 3 Encounters: 05/27/21 94.3 kg (208 lb) 04/30/21 94.3 kg (208 lb) 05/26/21 94.3 kg (208 lb) Flu Vaccine [id number] Age Considerations Vaccine Name Pediatric [] 6 [...] had any of the following: History of Guillian-Mitchell Syndrome, allergy to eggs, or allergicreaction to a previous dose of influenza, or fever greater than 101 degrees in the last 24 hours? no. Influenza immunization was administered as documented. . Review of Systems Objective: Physical Exam Vitals reviewed. Constitutional: General: She is awake. Appearance: Normal appearance. She is well-developed and well-groomed. She is obese. Comments: Sitting in a wheelchair for exam HENT: Head: Normocephalic and atraumatic. Right Ear: There is impacted cerumen. Left Ear: There is impacted cerumen. Mouth/Throat: Lips: [place]. Mouth: Mucous membranes are moist. Dentition: Abnormal dentition (edentulous). Does not have dentures. Cardiovascular: Rate and Rhythm: Normal rate and regular rhythm. Pulses: Normal pulses. Radial pulses are 2+ on the right side and 2+ on the left side. Heart sounds: Normal heart sounds, S1 normal and S2 normal. Pulmonary: Effort: Pulmonary effort is normal. Breath sounds: Normal breath sounds. Musculoskeletal: Cervical back: Rigidity present. Decreased range of motion. Right lower leg: No edema. Left lower leg: No edema. Skin: General: Skin is warm and dry. Capillary Refill: Capillary refill takes less than 2 seconds. Neurological: Mental Status: She is alert and oriented to person, place, and time. Motor: No weakness. Psychiatric: Attention and Perception: Attention normal. Mood and Affect: Mood and affect normal. Behavior: Behavior normal. Behavior is cooperative. Thought Content: Thought content normal. Judgment: Judgment normal. Assessment and Plan: Jeannie was seen today for pre-op exam. Diagnoses and all orders for this visit: Preop examination Cervicalgia Preop cardiovascular exam Health care maintenance - FluLaval Quadrivalent vaccine, Preservative Free 6MOS+ Smokes cigarettes - nicotine polacrilex (Nicorette) 2 mg Gum; Take 1 each by mouth as needed for Smoking cessation. - nicotine polacrilex (Commit) 2 mg Lozenge; Place 1 lozenge inside cheek as needed for Smoking cessation. Type 2 diabetes mellitus without complication, without long-term current use of insulin - Hemoglobin A1c; Future Chronic obstructive pulmonary disease, unspecified COPD type - Pulmonary Function Testing; Future Osteoporosis, unspecified osteoporosis type, unspecified pathological fracture presence - Referral to Endocrinology Financial difficulties - Referral to Social Work FUNCTIONAL CAPACITY FOR INTERMEDIATE OR HIGH RISK SURGERY Mets Examples [x] 1 Perform ADL's Walk indoors Walk a block at 2-3 mph [] 4 Walk up a flight of steps or a hill Walk on level ground at 3 to 4 mph [] 4-10 Can do heavy work around the house (scrubbing floors or lifting or moving heavy furniture. Climb two flights of stair Run a short distance Scrub floors / move heavy furniture Moderate recreational activities [] 10 Participate in strenuous sports such as swimming, singles tennis, football, basketball, and skiing SURGICAL RISK Surgical risk Procedure Examples [] High risk Major emergency surgery Aortic and other major vascular surgery Peripheral artery surgery [x] Intermediate Carotid endarterectomy Head and neck surgery Intraperitoneal and intrathoracic Orthopedic surgery (not same day) Prostate surgery [] Low Ambulatory surgery (includes most arthroscopies) Endoscopic procedures Superficial procedures Cataract surgery Breast surgery RISK FACTOR STRATIFICATION FOR PATIENTS UNABLE TO EXERCISE BEYOND 4 METS [x] None [] History of Ischemic heart disease [] History of heart failure [] History of cerebrovascular disease [] Insulin dependent diabetes mellitus [] Peroperative serum creatinine >= 2.0 mg/dl [] Increasing age [] Higher Risk Procedure (intraperitoneal, intrathoracic, vascular) Clinical Risk Factors Surgical Risk Further Testing [] 3 or more High / Vascular YES [] 3 or more Intermediate HR Control, consider non-invasive testing [] 1 or 2 ANY HR Control, consider non-invasive testing [x] None ANY NO PERIOPERATIVE TESTING History Action [] Intermediate risk procedure with 1+ clinical risk factors, or patient without recent EKG [] Preoperative EKG [] Prior history or concern for anemia, history of clotting or bleeding disorder (should not be ordered routinely) [] CBC [] Coagulation studies [x] Pt on medications: Digoxin, Donny-I/ARB, diuretics OR patients undergoing urologic procedure w/ bladder irrigation [x] Electrolytes/creatinine [x] Pts with Diabetes or Risk Factors for Diabetes [] fasting BG [x] HbA1c (if not within last 3 months) [] None of the above No testing unless clinically indicated PERIOPERATIVE MEDICATION MANAGEMENT Medication Usual Action Considerations [] NO CHANGES [x] Aspirin Clopidogrel Ticlopiine Prasugrel Stop 7-10 days prior to surgery Low-dose aspirin for secondary prevention of CV disease or primary prevention in a high-risk patient can be continued through surgery. [x] RAAS antagonists (ACEIs, ARBs) Discontinue at least 10 hours prior to surgery For all Surgery Types [] If T1DM basal insulin of 0.2-0.3 units/kg/day of long-acting. Give the morning of surgery If patient using an insulin pump, basal rate should be continued. [x] If T2DM Decrease long acting dose by 50% on day of surgery Recommend more frequent monitoring if poorly controlled [] Corticosteroids (inhaled and PO) Continue at regular dosing Stress dosing only necessary if signs of adrendal insufficiency. [x] NSAIDs Discontinue 5 days prior to surgery to reverse antiplatelet effect. Also, stop THC x3 days prior to surgery SUMMARY: CARDIAC RISK STRATIFICATION Surgery Risk Mets Risk Action [x] Low risk Any Proceed to OR [] Intermediate ?4 Proceed to OR [] Intermediate <4 No cardiac risk factors Proceed to OR [] Intermediate ?4 1 or more cardiac Risk factors - Consider Beta Blockers initation for resting heart Rate < 65 (re-assess prior to surgery) - Consider Stress Testing if it would oil changer or would be done otherwise PULMONARY RISK REDUCTION [] None needed [x] Incentive Spirometry Reviewed. Will obtain PFTs. PRE-OP TESTING ORDERED [] None [x] By clinic-A1c, PFTs [] By surgeon and will be done in clinic [] By surgeon and will be done as part of PAT RISK FOR SURGERY [x] Low risk - proceed to surgery [] High risk - further assessment is needed RECOMMENDATIONS [] Pre-anesthesia consult required for all patients with a DNR or limited resuscitation order who are expected to receive anesthesia services. Would like to do MRI thoracic spine at [facility] instead-will coordinate with [facility] Radiology SW support for lore enrique-she has a case loader operator helping her get into assisted living facility RX for Smoking Cessation A total of 45 minutes was spent on the day of the visit for completion of this encounter. (Established patient total visit time: 38853 - 20min, 42181 - 30 min, 13418 - 40 min; New patient total visit times: 94708 - 30 min, 02195 - 45 min, 34347 - 60 min) * Conor Velazquez - 2021 9:30 AM EDT Called patient, left message to call back. documented in this encounter Plan of Treatment Scheduled Referrals Name Type Priority Associated Diagnoses Orde r Schedule Referral to Endocrinology Outpatient Referral Routine Osteoporosis, unspecified osteoporosis type, unspecified pathological fracture presence Ordered: 2021 Referral to Social Work Outpatient Referral Routine Financial difficulties Ordered: 2021 documented as of this encounter Results * Hemoglobin A1c (2021 10:54 AM EDT) Hemoglobin A1C 5.6 4.3 - 5.6 % [facility] Est Avg Gluc 114 mg/dL [facility] Blood 2021 10:5 4 AM EDT 2021 11:55 AM EDT Narrative Resulting Agency Comment Spec In Lab Hoang Castellanos WELDING MACHINE OPERATOR [facility] CHEMISTRY ORDERABLES [facility] [address] [place] [address] documented in this encounter Visit Diagnoses Diagnosis Preop examination Preoperative examination, unspecified Cervicalgia Preop cardiovascular exam Pre-operative cardiovascular examination Health care maintenance Unspecified general medical examination Smokes cigarettes Tobacco use disorder Type 2 diabetes mellitus without complication, without long-term current use of insulin Chronic obstructive pulmonary disease, unspecified COPD type Osteoporosis, unspecified osteoporosis type, unspecified pathological fracture presence Financial difficulties Inadequate material resources documented in this encounter Care Teams Ship'S Carpenter Relationship Specialty Start Date End Date Hoang Castellanos, WELDING MACHINE OPERATOR [employer] [address] [place] [address] PCP - General Family Medicine 03/12/20 documented as of this encounter
--- OUTSIDE RECORDS SUMMARY | 2024-02-22 00:49 | XMS_ITS | Encounter Summary ---
[place] [address] Care Team Providers Care Car Blocker Name Role Phone Hoang Castellanos APRN Primary Care Provider Encounter Details Date Type Department Care Team (Late st Contact Info) Description 06/22/2021 [place]phone [place] [address] Sheree Escalante Social History Tobacco Use Types [...] on filedocumented in this encounter Care Teams Car Blocker Relationship Specialty Start Date End Date Hoang Castellanos APRN [address] [place] [address] PCP - General Family Medicine 03/12/20 documented as of this encounter
--- OUTSIDE RECORDS SUMMARY | 2024-02-22 00:49 | XMS_ITS | Encounter Summary ---
[place] [address] Care Team Providers Care Seed Production Field Supervisor Name Role Phone Hoang Castellanos APRN Primary Care Provider Encounter Details Date Type Department Care Team (Late st Contact Info) Description 06/23/2021 10:30 AM EST Clinical [place] [id number] Social History Tobacco Use Types Packs/Day Years [...] as of this encounter Progress Notes * Monique López RN - 06/23/2021 10:30 AM EST Pt has tolerated anesthesia in the past. Pt is here with Overhead Cleaner Maintainer Angela. Pre-operative instruction booklet reviewed. Patient verbalizes a good understanding of all information reviewed. PLAN: Testing: None, pt to have anesthesia consult today with Evelia Dickerson APRN Special medication instructions: Procedure date: 07-03-21 Dr Puente Pre Surgery Covid screening: Were you diagnosed with COVID 19 or had symptoms consistent with COVID19 within the last 3 months. No Pt reports having received 2 covid 19 vaccines and a booster shot. documented in this encounter Plan of Treatment Not on file documented as of this encounter Visit Diagnoses Not on filedocumented in this encounter Care Teams Seed Production Field Supervisor Relationship Specialty Start Date End Date Hoang Castellanos, SAM [address] [place] [address] PCP - General Family Medicine 03/12/20 documented as of this encounter
--- OUTSIDE RECORDS SUMMARY | 2024-02-22 00:50 | XMS_ITS | Encounter Summary ---
Author Organization [facility] [place] [address] Care Team Providers Care Retail Advisor Name Role Phone Hoang Castellanos APRN Primary Care Provider Reason for Visit * Reason Comments Medication Refill Encounter Details Date Type Department Care Team (Late st Contact Info) Description 04/23/2021 Refill Primary Care at [facility] [address] [place] [phone] Hoang Castellanos APRN [address] [facility] [place] [address] Social History Tobacco Use Types Packs/Day Years [...] Notes * [facility] En[facility]/23/2021 2:31 PM EDT Advair Diskus 500-50 mcg Last Prescription Fill Date: unknown Number Dispensed and Refills: unknown Last Related Office Visit: 03/23/2021 Upcoming Appointment: 06/23/2021 Lab Results Component Value Date HGB 13.8 04/07/2021 HCT 42.1 04/07/2021 CHLPL 114 12/27/2019 TRIG 102 12/27/2019 HDL 38 12/27/2019 LDLCHOL 56 12/27/2019 ALT 10 04/07/2021 AST 9 04/07/2021 NA 140 04/07/2021 K 3.9 04/07/2021 CL 101 04/07/2021 CREATININE 0.81 04/07/2021 TSH 2.27 04/07/2021 INR 1.0 07/03/2020 HA1C 5.7 (H) 10/14/2020 documented in this encounter Plan of Treatment Not on file documented as of this encounter Visit Diagnoses Not on filedocumented in this encounter Care Teams Retail Advisor Relationship Specialty Start Date End Date Hoang Castellanos APRN [address] [place] [address] PCP - General Family Medicine 03/12/20 documented as of this encounter
--- OUTSIDE RECORDS SUMMARY | 2024-02-22 00:50 | XMS_ITS | Encounter Summary ---
Author [place] [address] Care Team Providers Care Personal Insurance Advisor Name Role Phone Hoang Castellanos APRN Primary Care Provider Encounter Details Date Type Department Care Team (Late st Contact Info) Description 03/27/2021 Telephone Primary Care at [facility] [address] [place] [phone] Shannon Cruz, RN Social History Tobacco Use Types Packs/Day [...] encounter Miscellaneous Notes * Telephone Encounter - Shannon Cruz RN - 03/27/2021 2:29 PM EDT Patient called for multiple reasons. 1) wants PCP to review Tandani, note and testing. 2) FYI that she will get lab work done at [facility] soon. documented in this encounter Plan of Treatment Not on file documented as of this encounter Visit Diagnoses Not on filedocumented in this encounter Care Teams Personal Insurance Advisor Relationship Specialty Start Date End Date Hoang Castellanos, HIGHWAY MAINTENANCE CREW WORKER [address] [place] [address] PCP - General Family Medicine 03/12/20 documented as of this encounter
--- OUTSIDE RECORDS SUMMARY | 2024-02-22 00:50 | XMS_ITS | Encounter Summary ---
Author Organization [facility] [place] [address] Care Team Providers Care Cycle Analyst Name Role Phone Hoang Castellanos APRN Primary Care Provider Encounter Details Date Type Department Care Team (Late st Contact Info) Description 04/08/2021 [place] [address] Campos Puente MD [facility] [place] [address] [address] Social History Tobacco Use Types Packs/Day Years [...] * Telephone Encounter - Marli Hernández - 06/24/2021 9:18 AM EST Consent in edh from 06/22 * Telephone Encounter - Marli Hernández - 06/10/2021 10:[address] Puente Consent mailed to pt with a return self addressed prepaid envelope to have mailed backprior to surgery with PAB Pt to have Anesthesia consult on 06/23 * Telephone Encounter - Eldon Phan - 06/02/2021 3:11 PM EST Angela from [facility] calling to provide fax number. * Telephone Encounter - Marli Hernández - 06/02/2021 2:23 PM EST Per PAB schedule TOV with Pt and siblings for Saturday 06/09 at 2pm LM for [facility] Tool Maker Apprentice Angela to provide fax # to fax op consent to after PAB has had TOV on 06/09 with pt. (will fax consent and have it returned by 07/03 surgery) * Telephone Encounter - Marli Hernández - 06/02/2021 8:50 AM EST Spoke to PAB requested email to be sent to him emailed him asking if TOV with siblings is needed prior to 07/03 surgery. * Telephone Encounter - Marli Hernández - 06/01/2021 2:30 PM EST Surgery noticed scheduled for 07/03 Scheduled Anesthesia consult for 06/23 at 10 am Need to ask PAB if he wants to do a TOV with pt and siblings pre-op? * Telephone Encounter - Marli Hernández - 05/11/2021 3:44 PM EDT Hiral pt needs Anesthesia consult and surgery date. Pt called back to schedule surgery she has been cleared by Cardiology 04/30 appt was moved up soonerfrom 05/21. Karen sent IB message to Dr. Puente and Hiral to schedule surgery on 05/08. Sending Email to Dr. Puente in regards to TOV with Siblings per pt this already happened just needs surgery date and Anesthesia consult. * Telephone Encounter - Marli Hernández - 04/16/2021 8:26 AM EDT Pt had pre-op clearance with Cardiology on 05/21 to go over stress tests etc. Postpone until 05/22 to see if Cardiology cleared pt for surgery with PAB TOV to be scheduled with PAB and Siblings once cleared from Cardiology * Telephone Encounter - Marli Hernández - 04/08/2021 2:28 PM EDT 04/07 called Cardiology to schedule Stress test and cardiac clearance, once pt is cleared for surgery by Cardiology let Dr. Puente know. Dr. Puente to discuss surgery with siblings TOV once Cardiology clearance is obtained. Pt will need OR date and PAT, anesthesia consult. * Telephone Encounter - Marli Hernández - 04/08/2021 2:28 PM EDT Jeannie Rico - 04/07/21 Campos Puente MD Sent: Bruce April 07, 2021 ??5:17 PM To: P [facility] Neuro[facility] [place] ?? Message Needs cardiology W/U; PAT consult and schedule for surgery: C5/6 and 6/& ACDF documented in this encounter Plan of Treatment Not on file documented as of this encounter Visit Diagnoses Not on filedocumented in this encounter Care Teams Cycle Analyst Relationship Specialty Start Date End Date Hoang Castellanos APRN [address] [place] [address] PCP - General Family Medicine 03/12/20 documented as of this encounter
--- OUTSIDE RECORDS SUMMARY | 2024-02-22 00:50 | XMS_ITS | Encounter Summary ---
Author Organization [facility] [place] [address] Care Team Providers Care Loss Prevention Manager Name Role Phone Hoang Csatellanos APRN Primary Care Provider Reason for Referral * Consultation (Routine) - Closed Specialty Diagnoses / Procedures Referred By Contac t Referred To Contact Thoracic Surgery Diagnoses Smokes cigarettes Hoang Castellanos APRN [address] [place] [address] Beatriz Matthews APRN [facility] [place] [address] Referral ID Status Reason Start Date Expiration Date V isits Requested Visits Authorized [id number] Closed Consult, Test & Treat 03/24/2021 03/24/2022 12 12 * Home Health Care (Routine) - Closed Specialty Diagnoses / Procedures Referred By Contac t Referred To Contact Physical Therapy Diagnoses Acute pain of right shoulder Hoang Castellanos APRN [address] [place] [address] [facility] [address] [address] Referral ID Status Reason Start Date Expiration Date V isits Requested Visits Authorized [id number] Closed Continuity of Care 03/23/2021 09/19/2021 12 12 * Diagnostic Test (Routine) - Closed Specialty Diagnoses / Procedures Referred By Contac t Referred To Contact Radiology Diagnoses Age-related osteoporosis without current pathological fracture Procedures DXA Central Spine, Hip, and/or Whole Body (Generic) Hoang Castellanos APRN [address] [facility] [address] [facility] Rad Xray [address] [place] [address] Referral ID Status Reason Start Date Expiration Date V isits Requested Visits Authorized [id number] Closed Specialty Service Requested 03/23/2021 09/21/2022 1 1 Reason for Visit * Reason Comments Hypertension Diabetes Dizziness Edema Encounter Details Date Type Department Care Team (Late Contact Info) Description 03/23/2021 10:00 AM EDT Office Visit Primary Care at [facility] [address] [place] [address] Hoang Castellanos APRN [address] [facility] [address] Type 2 diabetes mellitus without complication, without long-term current use of insulin; Benign essential hypertension; Cervicalgia; Cervical stenosis of spinal canal; Chronic pain syndrome; Acute pain of right shoulder; Smokes cigarettes; Asthma with acute exacerbation, unspecified asthma severity, unspecified whether persistent; Age-related osteoporosis without current pathological fracture; Breast cancer screening by mammogram Social History Tobacco Use Types Packs/Day Years [...] Sign Reading Time Taken Comments Blood Pressure 126/70 03/23/2021 10:04 AM EDT Pulse 53 03/23/2021 10:04 AM EDT Temperature - - Respiratory Rate 14 03/23/2021 10:0 4 AM EDT Oxygen Saturation 98% 03/23/2021 10: 04 AM EDT Inhaled Oxygen Concentration - - Weight 93.8 kg (206 lb 12.8 oz) 021 10:04 AM EDT Height 162.6 cm (5' 4) 03/23/2021 10:0 4 AM EDT Body Mass Index 35.5 03/23/2021 10:04 AM EDT documented in this encounter Progress Notes * Hoang Castellanos, CLINICAL RADIOLOGIST - 03/23/2021 10:00 AM EDT Subjective: HPI: Jeannie Rico is a 60 y.o. female [facility] HPI Patient presents for a 3 month follow up of these issues: HYPERTENSION: - Metoprolol XL 25 mg - Lisinopril 40 mg - Amlodipine She has not been checking her blood pressure at home. Her blood She taking medications as instructed, no medication side effects noted, no TIA's, no chest pain on exertion, no dyspnea on exertion, no swelling of ankles She is following a low salt diet. She is exercising regularly- walking Hx CAD s/p PCI 03/2013 Cardiology visit 01/07 NM stress test-has not been done yet-unsure why it was ordered. DIABETES: - Testing supplies patient does not check sugars She has not had symptomatic high/low blood sugars. She has not been following a carbohydrate controlled diet. Her dietary downfall is carbohydrates . She does drink sweetened beverages. She states she does exercise regularly- patient is walking as much as she can. ?? Right leg weakness - Referral to Neurology - did a [employer] video ordered an MRI of my neck. Neurology-Dr. Baltazar 02/04 Severe spinal stenosis on MRI c-spine F/u with Dr. Baltazar on 04/14 ?? Dizziness - Referral to Neurology - Dr. Bass on , 03/26. [facility] PT/OT working on balance at home. Able to take a shower now. Hx of seizures nonepileptic Hx ICH dx 2005 MRI brain 09/16/20-negative Strength in legs improving, P.T. helping with balance Able to walk farther Ramp at house, bars inside Getting around better at home Patient fell again 1.5 months ago-landing on right arm Right shoulder pain since then, radiating distally Right wrist pains/p fx Numbness/tinging in right palm, 4th/5th digitis. Numbness/burning in left hand as well as fingerpads Increased pain with external rotation-10/10 pain Worse in the morning upon getting out of bed MMJ patches are helping with night time pain-sleeping through the night sometimes but other times the pain still wakes her up-20mg patches at night MMJ edibles 20mg usually during the day ?? Chronic pain of right ankle - Referral to Orthopaedics - 02/26/2021 [facility] ?? Bilateral leg edema - comes and goes, sleep with pillow under my feet. Smoking Cessation: Interested in quitting Increased smoking with stress-constantly smoking Osteoporosis left femoral neck Last DXA scan 02/20/2019 Objective: VS: BP 126/70 Pulse 53 Resp 14 Ht 162.6 cm (5' 4) Wt 93.8 kg (206 lb 12.8 oz) LMP (LMP Unknown) SpO2 98% BMI 35.50 kg/m?? Physical Exam Vitals reviewed. Constitutional: General: She is awake. Appearance: Normal appearance. She is well-developed and well-groomed. She is obese. HENT: Head: Normocephalic and atraumatic. Cardiovascular: Rate and Rhythm: Normal rate and regular rhythm. Pulses: Normal pulses. Radial pulses are 2+ on the right side and 2+ on the left side. Heart sounds: Normal heart sounds, S1 normal and S2 normal. Pulmonary: Effort: Pulmonary effort is normal. Breath sounds: Normal breath sounds. Musculoskeletal: Right shoulder: Deformity, tenderness and bony tenderness present. Decreased range of motion (decreased external rotation). Decreased strength (of subscapularis). Right lower leg: No edema. Left lower leg: No edema. Skin: General: Skin is warm and dry. Capillary Refill: Capillary refill takes less than 2 seconds. Neurological: Mental Status: She is alert and oriented to person, place, and time. Psychiatric: Attention and Perception: Attention normal. Mood and Affect: Mood and affect normal. Behavior: Behavior normal. Behavior is cooperative. Thought Content: Thought content normal. Judgment: Judgment normal. Assessment and Plan: Jeannie was seen today for hypertension, diabetes, dizziness and edema. Diagnoses and all orders for this visit: Type 2 diabetes mellitus without complication, without long-term current use of insulin Benign essential hypertension Cervicalgia Cervical stenosis of spinal canal Chronic pain syndrome Acute pain of right shoulder - Referral to Home Health - Clinic Use Smokes cigarettes - Referral to Smoking Cessation Program Asthma with acute exacerbation, unspecified asthma severity, unspecified whether persistent - tiotropium bromide (Spiriva Respimat) 2.5 mcg/actuation Mist; Inhale 2 puffs into the lungs nightly. Age-related osteoporosis without current pathological fracture - alendronate (Fosamax) 70 mg Tablet; Take 1 tablet by mouth every 7 days. Take in AM with full glass of water, on an empty stomach. Do not lie down for 30 min. - DXA Central Spine, Hip, and/or Whole Body (Generic); Future Breast cancer screening by mammogram - Mammo Screening Cad and Garret Bilateral; Future Diabetes with good control-last A1c of 5.7. Due for repeat in 1 to 6 months. Hypertension well controlled. Patient is interested in smoking cessation. Chronic neck pain, cervical stenosis. She will follow up with neurology. Acute pain of right shoulder status post fall-she does have decreased external rotation and pain ofthe subscapularis. We will add home PT for shoulder. There are no Patient Instructions on file for this visit. FOLLOWUP: Return in about 3 months (around 06/23/2021) for In Person HTN f/u . A total of 40 minutes was spent on the day of the visit for completion of this encounter. (Established patient total visit time: 16128 - 20min, 87202 - 30 min, 88329 - 40 min; New patient total visit times: 65639 - 30 min, 46006 - 45 min, 36084 - 60 min) documented in this encounter Plan of Treatment Scheduled Referrals Name Type Priority Associated Diagnoses Orde r Schedule Referral to Home Health - Clinic Use Outpatient Referral Routine Acute pain of right shoulder Ordered: 03/23/2021 Referral to Smoking Cessation Program Outpatient Referral Routine Smokes cigarettes Ordered: 03/24/2021 documented as of this encounter Results * Mammo Screening Cad and Garret Bilateral (05/26/2021 10:30 AM EDT) Anatomical Region [...] MD Hoang Castellanos APRN IMG MAMMO ORDERABLES * DXA Central Spine, Hip, and/or Whole Body (Generic) (05/26/2021 10:04 AM EDT) Anatomical Region Laterality Modality C-spine, Hip N/A Digital Radiogra phy Impressions 05/26/2021 1:03 PM EDT Osteoporosis of the left femoral neck and total left hip. Patient is at significantly increased risk for fracture. Follow-up examination one year's time to monitor response to therapy is recommended Estimating Fracture Risk: The relationship between bone mineral density (BMD) and risk of fracture is well established. As BMD decreases, risk increases. Quantifying risk is difficult and is usually limited to estimation of the relative risk - a term which may have limited value when trying to discuss an individual's risk. Estimating the absolute risk for a patient requires an understanding of the incidence rate in a given population and consideration of multiple, partially independent, risk factors in addition to BMD. The World Health Organization (WHO) has developed a fracture risk prediction tool that calculates a ten-year risk of major osteoporotic fracture based on femoral neck bone density measurements and nine clinical risk factors for individuals who have not been treated for osteoporosis. This is available through an interactive web-based interface (http://www.shef.ac.uk/FRAX/) and can be used to estimate a given patient's absolute risk of major osteoporotic fracture or hip fracture over the next 10 years. These estimates may prove useful when discussing risk with a patient. It is important, however, to understand the tool's limitations and how a given individual's risk might differ from the tool's estimate. The tool does not take into account the dose-response associated with most risk factors. For example, the significant increase in risk associated with multiple prior fractures compared to a single prior fracture is not taken into account. Similarly, the location of a previous fracture, the amount of glucocorticoids and number of cigarettes smoked are not considered. These limitations are discussed in a Frequently Asked Questions section of the FRAX website which you are encouraged to review. DXA data sheets with BMD measurements and plots are available in [employer] under the imaging tab. Paper copies will be sent to providers without [employer] access. If you have received this report without the data sheet and do not have access to [employer], please contact [facility] at [phone]. Thank you for letting us participate in the care of this patient. ??If you are a health care provider and have any questions regarding this report, please contact the number below. ??For patients who have questions please contact the health team primary care physician that requested your imaging first. ? Electronically signed by: Hong Catherine MD, [facility] ([phone]), at 05/26/2021 1:03 PM Narrative 05/26/2021 1:03 PM EDT EXAMINATION: DXA CENTRAL SPINE, HIP, AND/OR WHOLE BODY (GENERIC) CLINICAL HISTORY: osteoporosis f/u TECHNIQUE: Scans were acquired at the lumbar spine and left hip COMPARISON: February 20, 2019 and October 29, 2015 FINDINGS: The bone mineral density of the lumbar spine L1-L4 is 0.786 g/sq cm with a T score of -2.4 and a Z score of -0.9 and 7% less than on the prior study. The bone mineral density of the left femoral neck is 0.455 g/sq cm with a ??T score of -3.6 and a Z score of -2.2. The total bone mineral density of the left hip is 0.641 g/sq cm with a T score of -2.5 and a Z score of -1.5 and 12.58% less than on the prior study Procedure Note Hong Catherine MD - 05/26/2021 EXAMINATION: DXA CENTRAL SPINE, HIP, AND/OR WHOLE BODY (GENERIC) CLINICAL HISTORY: osteoporosis f/u TECHNIQUE: Scans were acquired at the lumbar spine and left hip COMPARISON: February 20, 2019 and October 29, 2015 FINDINGS: The bone mineral density of the lumbar spine L1-L4 is 0.786 g/sq cm with aT score of -2.4 and a Z score of -0.9 and 7% less than on the prior study. The bone mineral density of the left femoral neck is 0.455 g/sq cm with aT score of -3.6 and a Z score of -2.2. The total bone mineral density of theleft hip is 0.641 g/sq cm with a T score of -2.5 and a Z score of -1.5 and12.58% less than on the prior study IMPRESSION Osteoporosis of the left femoral neck and total left hip. Patient is at significantly increased risk for fracture. Follow-up examination oneyear's time to monitor response to therapy is recommended Estimating Fracture Risk: The relationship between bone mineral density (BMD) and risk of fractureis well established. As BMD decreases, risk increases. Quantifying risk isdifficult and is usually limited to estimation of the relative risk - a term which mayhave limited value when trying to discuss an individual's risk. Estimatingthe absolute risk for a patient requires an understanding of the incidencerate in a given population and consideration of multiple, partially independent,risk factors in addition to BMD. The World Health Organization (WHO) has developed a fracture riskprediction tool that calculates a ten-year risk of major osteoporotic fracture basedon femoral neck bone density measurements and nine clinical risk factorsfor individuals who have not been treated for osteoporosis. This isavailable through an interactive web-based interface (http://www.shef.ac.uk/FRAX/)and can be used to estimate a given patient's absolute risk of majorosteoporotic fracture or hip fracture over the next 10 years. These estimates mayprove useful when discussing risk with a patient. It is important, however, to understand the tool's limitations and how a given individual's risk mightdiffer from the tool's estimate. The tool does not take into account thedose-response associated with most risk factors. For example, the significant increasein risk associated with multiple prior fractures compared to a single priorfracture is not taken into account. Similarly, the location of a previous fracture,the amount of glucocorticoids and number of cigarettes smoked are notconsidered. These limitations are discussed in a Frequently Asked Questions sectionof the FRAX website which you are encouraged to review. DXA data sheets with BMD measurements and plots are available in [employer]under the imaging tab. Paper copies will be sent to providers without [employer] access.If you have received this report without the data sheet and do not haveaccess to E-, please contact [facility] at [phone]. Thank you for letting us participate in the care of this patient. If youare a health care provider and have any questions regarding this report,please contact the number below. For patients who have questions please contactthe health team primary care physician that requested your imaging first. Electronically signed by: Hong Catherine MD, [facility]([phone]), at 05/26/2021 1:03 PM Hoang Castellanos APRN IMG DEXA ORDERABLES documented in this encounter Visit Diagnoses Diagnosis Type 2 diabetes mellitus without complication, without long-term current use of insulin Benign essential hypertension Essential hypertension, benign Cervicalgia Cervical stenosis of spinal canal Spinal stenosis in cervical region Chronic pain syndrome Acute pain of right shoulder Smokes cigarettes Tobacco use disorder Asthma with acute exacerbation, unspecified asthma severity, unspecified whether persistent Age-related osteoporosis without current pathological fracture Senile osteoporosis Breast cancer screening by mammogram Age-related osteoporosis without current pathological fracture Senile osteoporosis Breast cancer screening by mammogram documented in this encounter Care Teams Loss Prevention Manager Relationship Specialty Start Date End Date Hoang Castellanos APRN [address] [place] [address] PCP - General Family Medicine 03/12/20 documented as of this encounter
--- OUTSIDE RECORDS SUMMARY | 2024-02-22 00:50 | XMS_ITS | Encounter Summary ---
[place] [address] Care Team Providers Care Chip Bin Conveyor Tender Name Role Phone Hoang Castellanos APRN Primary Care Provider Reason for Referral * Diagnostic Test (Routine) - Closed Specialty Diagnoses / Procedures Referred By Contac t Referred To Contact Radiology Diagnoses Coronary artery disease involving [place] coronary artery of [place] heart without angina pectoris Procedures NM Pharmacologic Stress and Rest Myocardial Perfusion Dustin Haynes [facility] [address] [place] [address] Referral ID Status Reason Start Date Expiration Date V isits Requested Visits Authorized [id number] Closed Specialty Service Requested 02/16/2021 07/24/2021 1 1 Reason for Visit * Diagnostic Test (Routine) - Closed Specialty Diagnoses / Procedures Referred By Contac t Referred To Contact Radiology Diagnoses Coronary artery disease involving [place] coronary artery of [place] heart without angina pectoris Procedures NM Pharmacologic Stress and Rest Myocardial Perfusion Dustin Haynes [facility] [place] [address] [facility] [place] [address] Referral ID Status Reason Start Date Expiration Date V isits Requested Visits Authorized [id number] Closed Specialty Service Requested 02/16/2021 07/24/2021 1 1 Encounter Details Date Type Department Care Team (Late st Contact Info) Description 04/15/2021 10:20 AM EDT - 04/15/2021 10:28 AM EDT Hospital En[place] [address] Benito Reed MD [facility] CARDIOLOGY [place] [id number] Coronary artery disease involving t[place] coronary artery of [place] heart without angina pectoris Discharge Disposition: Home Social History Tobacco Use [...] Sig Dispensed Refills Start Date End Date Miscellaneous Medical Supply MiscIndications:Dizzine ss,Chronic right-sided low back pain without sciatica 1 walker on wheels with seat 1 each 03/12/2020 multivitamin (THERAGRAN) Tablet Take 1 tablet by mouth daily. MARIJUANA ORAL Take 1 Dose by mouth 2 times daily. sertraline (ZOLOFT) 100 mg Tablet Take 2 tablets by mouth 2 times daily. 01/27/2020 04/14/2023 lisinopriL (Zestril) 40 mg TabletIndications:Benig n essential hypertension TAKE ONE (1) TABLET BY MOUTH EVERY DAY 28 tablet 11 04/14/2021 12/01/2021 Acidophilus Capsule 03/29/2021 05/27/20 21 fluticasone propion-salmeteroL (ADVAIR) 500-50 mcg/dose Disk with Device Inhale 1 puff into the lungs every 12 hours. 2021 Advair Diskus 500-50 mcg/dose Disk with Device 03/01/2021 04/24/2021 alendronate (Fosamax) 70 mg TabletIndications:Age-r elated osteoporosis without current pathological fracture Take 1 tablet by mouth every 7 days. Take in AM with full glass of water, on an empty stomach. Do not lie down for 30 min. 4 tablet 11 03/23/2021 06/22/2021 tiotropium bromide (Spiriva Respimat) 2.5 mcg/actuation MistIndications:Asthma with acute exacerbation, unspecified asthma severity, unspecified whether persistent Inhale 2 puffs into the lungs nightly. 12 g 3 03/23/2021 03/19/2022 aspirin EC 81 mg Tablet, Delayed Release (E.C.) TAKE ONE (1) TABLET BY MOUTH EVERY DAY 28 tablet 03/17/2021 11/03/2021 metoprolol succinate XL (Toprol-XL) 25 mg Tablet Sustained Release 24 hr TAKE ONE-HALF (1/2) TABLET BY MOUTH EVERY DAY 14 tablet 03/17/2021 12/01/2021 Vitamin B-12 1,000 mcg TabletIndications:B12 deficiency TAKE ONE (1) TABLET BY MOUTH ONCE WEEKLY (PM) 4 tablet 03/17/2021 02/15/2022 cholecalciferol, Vitamin D3, 50 mcg (2,000 unit) Tablet TAKE ONE (1) TABLET BY MOUTH EVERY DAY (PM) 28 tablet 03/17/2021 06/22/2021 isosorbide mononitrate CR (Imdur) 30 mg Tablet Sustained Release 24 hrIndications:Coronary artery disease involving [place] coronary artery of [place] heart without angina pectoris TAKE ONE (1) TABLET BY MOUTH EVERY DAY 28 tablet 02/17/2021 01/18/2022 Acidophilus Capsule TAKE TWO (2) CAPSULES BY MOUTH TWICE A DAY (VIAL) 112 capsule 12/23/2020 2021 FeroSuL 325 mg (65 mg iron) Tablet TAKE ONE (1) TABLET BY MOUTH THREE TIMES A WEEK 12 tablet 11 11/26/2020 10/26/2021 Incruse Ellipta 62.5 mcg/actuation Disk with Device Inhale 1 puff into the lungs daily. 10/12/2020 2021 prazosin (Minipress) 2 mg Capsule TAKE THREE (3) CAPSULES BY MOUTH DAILY AT BEDTIME 84 each 11 10/31/2020 09/28/2021 Ventolin HFA 90 mcg/actuation HFA Aerosol InhalerIndications:Box Office Attendant randell obstructive pulmonary disease, unspecified COPD type [...] THE EVENING 56 capsule 11 10/02/2020 09/01/2021 lamoTRIgine (LaMICtal) 200 mg Tablet Take 1 tablet by mouth daily. 90 tablet 3 07/16/2020 06/09/2021 levothyroxine (Synthroid) 50 mcg Tablet Take 1 tablet by mouth daily. Pt needs to come in for TSH. 90 tablet 3 07/16/2020 06/09/2021 nitroGLYcerin (Nitrostat) 0.4 mg Tablet, Sublingual Place [...] Procedure Name Priority Date/Time Associated Diagnosis Comments NM PHARMACOLOGIC STRESS AND REST MYOCARDIAL PERFUSION Routine 04/15/2021 11:37 AM EDT Coronary artery disease involving [place] coronary artery of [place] heart without angina pectoris documented in this encounter Results * NM Pharmacologic Stress and Rest Myocardial Perfusion (04/15/2021 11:37 AM EDT) Anatomical Region Laterality Modality Nuclear Medicine Impressions 04/15/2021 3:42 PM EDT No ischemia or scar. ??Left ventricular function is normal. Preliminary report signed by: Wang Atkins at 04/15/2021 2:34 PM I have personally reviewed the image(s) and the resident's interpretation and agree with the findings, Matthew Morrison MD at 04/15/2021 3:42 PM Thank you for letting us participate in the care of this patient. ??If you are a health care provider and have any questions regarding this report, please contact the number below. ??For patients who have questions please contact the health childcare teacher that requested your imaging first. ? Electronically signed by: Matthew Morrison MD, [facility] ([phone]), at 04/15/2021 3:42 PM Narrative 04/15/2021 3:42 PM EDT EXAMINATION: NM PHARMACOLOGIC STRESS AND REST MYOCARDIAL PERFUSION, NM PHARMACOLOGIC STRESS CT COMPONENT CLINICAL HISTORY: profound AVILA in setting of known ASCVD TECHNIQUE: During rest, 7.9 mCi of technetium-99m sestamibi was administered intravenously. Approximately 20 minutes later, SPECT images of the heart were obtained with reconstruction in the short, vertical long and horizontal long axis. The patient then received regadenoson intravenously at a dose of 0.4 mg. 20 seconds later, 27.5 mCi of technetium-99m sestamibi was administered intravenously. Images of the heart were then again obtained with SPECT reconstruction. A low-dose CT scan was acquired for the purpose of attenuation correction COMPARISON: None FINDINGS: No fixed or reversible perfusion defects are present. Functional analysis: Myocardial function: There is normal wall thickening and wall motion. Left ventricular ejection fraction: 66 % (normal greater than than 50%). INCIDENTAL CT FINDINGS: Coronary artery calcifications. Procedure Note Matthew Morrison MD - 04/15/2021 EXAMINATION: NM PHARMACOLOGIC STRESS AND REST MYOCARDIAL PERFUSION, NM PHARMACOLOGIC STRESS CT COMPONENT CLINICAL HISTORY: profound AVILA in setting of known ASCVD TECHNIQUE: During rest, 7.9 mCi of technetium-99m sestamibi wasadministered intravenously. Approximately 20 minutes later, SPECT images of the heartwere obtained with reconstruction in the short, vertical long and horizontallong axis. The patient then received regadenoson intravenously at a dose of 0.4 mg.20 seconds later, 27.5 mCi of technetium-99m sestamibi was administered intravenously. Images of the heart were then again obtained with SPECT reconstruction. A low-dose CT scan was acquired for the purpose of attenuationcorrection COMPARISON: None FINDINGS: No fixed or reversible perfusion defects are present. Functional analysis: Myocardial function: There is normal wall thickening and wall motion. Left ventricular ejection fraction: 66 % (normal greater than than 50%). INCIDENTAL CT FINDINGS: Coronary artery calcifications. IMPRESSION No ischemia or scar. Left ventricular function is normal. Preliminary report signed by: Wang Atkins at 04/15/2021 2:34 PM I have personally reviewed the image(s) and the resident's interpretationand agree with the findings, Matthew Morrison MD at 04/15/2021 3:42 PM Thank you for letting us participate in the care of this patient. If youare a health care provider and have any questions regarding this report,please contact the number below. For patients who have questions please contactthe health childcare teacher that requested your imaging first. Benito Reed MD IMG NM ORDERABL ES documented in this encounter Visit Diagnoses Diagnosis Coronary artery disease involving t[place] coronary artery of [place] heart without angina pectoris documented in this encounter Administered Medications Inactive Administered Medications - up to 3 most recent administrations Medication Order MAR Action Action Date Dose Rate Site technetium (Tc-99m) sestamibi injection 0-30 mCi 0-30 mCi, Intravenous, 2 TIMES DAILY PRN, 2 doses, Starting on Tue04/15/21 at 1034, Until Tue04/15/21 at 1130, Per Protocol, Radiology Contrast, Routine Given 04/15/2021 11:30 AM EDT 27.5 mCi Given 04/15/2021 10:30 AM EDT 7.9 mCi L eft Arm documented in this encounter Care Teams Chip Bin Conveyor Tender Relationship Specialty Start Date End Date Hoang Castellanos, GEOPHYSICAL DRAFTER [address] [place] [address] PCP - General Family Medicine 03/12/20 documented as of this encounter
--- OUTSIDE RECORDS SUMMARY | 2024-02-22 00:50 | XMS_ITS | Encounter Summary ---
Author Organization [facility] Address [facility] [place] [address] Care Team Providers Care Machine I Trimmer Name Role Phone Hoang Castellanos APRN Primary Care Provider [phone] Encounter Details Date Type Department Care Team (Late st Contact Info) Description 04/07/2021 2:00 PM EDT Office [place] [address] Campos Puente MD [facility] [place] [address] Cervical spondylosis Social History Tobacco Use Types [...] Sign Reading Time Taken Comments Blood Pressure 125/57 04/07/2021 1:39 PM EDT Pulse 44 04/07/2021 1:39 PM EDT Temperature 36.7 ??C (98.1 ??F) 04/07/2021 1:39 PM ED T Respiratory Rate - - Oxygen Saturation - - Inhaled Oxygen Concentration - - Weight - - Height 162.6 cm (5' 4) 04/07/2021 1:39 PM EDT Body Mass Index - - documented in this encounter Progress Notes * Campos Puente MD - 04/07/2021 2:00 PM EDT Jeannie Rico is a 60-year-old woman with a chief complaint of increasing unsteadiness on her feet with resultant falls. She states that she is sustained a wrist fracture and ankle fracture due to falls. She states that she feels unsteady on her feet and has bilateral hand numbness. She had the onset of bladder incontinence in June 2020. She states that she uses a walker in her home or if sheleaves her home. She does occasionally use a wheelchair. She can occasionally ambulate within her home by grabbing onto furniture. Her past medical history is significant for coronary artery disease for which she underwent stenting. She has an extensive mental health history including PTSD, anxiety and bipolar disorder. She has a history of hypothyroidism as well as migraines. Her past surgical history is significant for gastric bypass and hysterectomy. She smokes between a half a pack and 1 pack/day and has done so since age 11. She currently lives with her who has schizophrenia. Her medical decisions are made by her sister, Rae Mittal who resides in [place]. She arrives to this visit in a wheelchair. She is accompanied to this visit by her bicycle rental clerk. On examination this is a woman with a stated height of 5 feet 4 inches tall and a weight of 206 pounds for a BMI of 35. There is good motion of the neck and flexion extension without provocation of symptoms. Motor strength is full in the upper extremity lower extremities except some weakness of finger flexion on the right. Deep tendon reflexes are brisk with spread in the upper extremities wrist with crossed adduction responses in the lower extremities. Plantar responses are equivocal. Aniya signis positive bilaterally. Sensation is intact to light touch and proprioception. [id number] is performed accurately. She can arise from a seated position with the use of her arms and can take a few steps but requires holding onto furniture to accomplish this. Review of her MRI shows preserved cervical lordosis with C5-6 and C6-7 spondylosis. We had a varinder discussion on the situation and options here. She does have cervical spondylosis bronson cervical spondylotic myelopathy. We discussed that the natural history is somewhat uncertain but that I think decompressive surgery has the best chance of her preserving her independence and ability to ambulate. We discussed that without surgery I think the likelihood of progression of neurologicdisability is reasonably high. We reviewed the nature of surgery including the risks of anesthesia,infection, bleeding, injury to the trachea, esophagus, recurrent laryngeal nerve, great vessels, injury to the spinal cord including the possibility of paralysis, the options of allograft or autograft and why I would recommend allograft and the possibility of fusion given her long smoking history, the possibility of instrumentation failure or the possibility of failure to improve or neurologic worsening following surgery. I told her that I thought that there was the possibility of postoperativedelirium as well as the almost certain need for a stay at rehab following surgery. Before surgery could even be considered it would be necessary to clarify the status in regard to her coronary arterydisease. At her most recent appointment with cardiology a nuclear stress test was scheduled but that study has not been obtained. We would need to have that obtained and the options in regard to surgery would need to be discussed with her DPOA, her sister Rae. This was all discussed and questions answered. documented in this encounter Plan of Treatment Not on file documented as of this encounter Visit Diagnoses Diagnosis Cervical spondylosis Cervical spondylosis without myelopathy documented in this encounter Care Teams Machine I Trimmer Relationship Specialty Start Date End Date Hoang Castellanos APRN [address] [place] [address] PCP - General Family Medicine 03/12/20 documented as of this encounter
--- OUTSIDE RECORDS SUMMARY | 2024-02-22 00:50 | XMS_ITS | Encounter Summary ---
[place] [address] Care Team Providers Care Roving Teller Name Role Phone Hoang Castellanos APRN Primary Care Provider Reason for Referral * Diagnostic Test (Routine) - Closed Specialty Diagnoses / Procedures Referred By Contac t Referred To Contact Radiology Diagnoses Coronary artery disease involving [place] coronary artery of [place] heart without angina pectoris Procedures NM Pharmacologic Stress CT Component Dustin Haynes [facility] [place] [address] [place] [address] Referral ID Status Reason Start Date Expiration Date V isits Requested Visits Authorized [id number] Closed Specialty Service Requested 02/16/2021 07/24/2021 1 1 Reason for Visit * Diagnostic Test (Routine) - Closed Specialty Diagnoses / Procedures Referred By Contac t Referred To Contact Radiology Diagnoses Coronary artery disease involving [place] coronary artery of [place] heart without angina pectoris Procedures NM Pharmacologic Stress CT Component Dustin Haynes [facility] [place] [address] [facility] [place] [address] Referral ID Status Reason Start Date Expiration Date V isits Requested Visits Authorized [id number] Closed Specialty Service Requested 02/16/2021 07/24/2021 1 1 Encounter Details Date Type Department Care Team (Late st Contact Info) Description 04/15/2021 10:33 AM EDT - 04/15/2021 11:59 PM EDT Hospital Encounter [place] [address] Benito Reed MD [facility] [place] [address] Coronary artery disease involving [place] coronary artery of [place] heart without angina pectoris Discharge Disposition: Home [...] daily. 01/27/2020 04/14/2023 lisinopriL (Zestril) 40 mg TabletIndications:Benkallie n essential hypertension TAKE ONE (1) TABLET BY MOUTH EVERY DAY 28 tablet 04/14/2021 12/01/2021 Acidophilus Capsule 03/29/2021 05/27/20 21 [...] Sustained Release 24 hrIndications:Coronary artery disease involving [place] coronary artery of [place] heart without angina pectoris TAKE ONE (1) [...] 09/28/2021 Ventolin HFA 90 mcg/actuation HFA Aerosol InhalerIndications:Applications Intern randell obstructive pulmonary disease, unspecified COPD type INHALE 1 TO 2 PUFFS EVERY SIX HOURS NEEDED *CALL TO REFILL* 18 g 2 10/27/2020 12/01/2021 amLODIPine (Norvasc) 5 mg TabletIndications:Benkallie n essential hypertension Take 1 tablet by [...] Date/Time Associated Diagnosis Comments NM PHARMACOLOGIC STRESS CT COMPONENT Routine 04/15/2021 11:54 AM EDT Coronary artery disease involving [place] coronary artery of [place] heart without angina pectoris documented in this encounter Results * NM Pharmacologic Stress CT Component (04/15/2021 11:54 AM EDT) Anatomical Region Laterality Modality Nuclear [...] questions please contact the health director of critical care that requested your imaging first. ? Narrative 04/15/2021 3:42 PM EDT EXAMINATION: NM [...] have questions please contactthe health director of critical care that requested your imaging first. Benito Reed MD IMG NM ORDERABL ES documented in this encounter Visit Diagnoses Diagnosis Coronary artery disease involving [place] coronary artery of [place] heart without angina pectoris documented in this encounter Care Teams Roving Teller Relationship Specialty Start Date End Date Hoang Castellanos, PARTS ADMINISTRATOR [address] [place] [address] PCP - General Family Medicine 03/12/20 documented as of this encounter
--- OUTSIDE RECORDS SUMMARY | 2024-02-22 00:50 | XMS_ITS | Encounter Summary ---
[place] [address] Care Team Providers Care Medical Interpreter Name Role Phone Hoang Castellanos APRN Primary Care Provider Reason for Visit * Reason Onset Date Comments Questions 02/27/2021 note clarificati on Encounter Details Date Type Department Care Team (Late st Contact Info) Description 02/27/2021 Telephone Orthopaedics at [facility] [address] [place] [id number] Irasema Chairez RN Questions (note clarification) Social History Tobacco Use Types Packs/Day Years [...] encounter Miscellaneous Notes * Telephone Encounter - Irasema Lou RN - 02/27/2021 4:17 PM EDT Telephone Call 02/27/2021 4:17 PM Caller: Jeannie Rico 1960 No relevant phone numbers on file. [phone] (home) Problem/Question: Celi from [facility] left a message stating that she was looking over Joels note on theabove patient from yesterday and in that note it said the patient had a +Homans sign.. indicating aDVT? Upon further review of note, there was no further assessment or planning for DVT possibility. Plan of care was just listed as referral for neurology for weakness and then continued PT through [facility]. Contacted Festus asking whether or not this was perhaps a typo in the record. Festus confirmed that yes this was a typo and no further testing was necessary and to addend the note indicating so. Outcome: Returned call to Celi relaying this information who was appreciative of call. Plan/Follow up: Celi instructed to call with any questions or concerns. Irasema Lou RN documented in this encounter Plan of Treatment Not on file documented as of this encounter Visit Diagnoses Not on filedocumented in this encounter Care Teams Medical Interpreter Relationship Specialty Start Date End Date Hoang Castellanos, SOLAR TECHNICIAN [address] [place] [address] PCP - General Family Medicine 03/12/20 documented as of this encounter
--- OUTSIDE RECORDS SUMMARY | 2024-02-22 00:50 | XMS_ITS | Encounter Summary ---
[place] [address] Care Team Providers Care Elderly Sitter Name Role Phone Hoang Castellanos APRN Primary Care Provider [phone] Encounter Details Date Type Department Care Team (Late st Contact Info) Description 04/13/2021 Telephone [place] [address] Marli Hernández Social History Tobacco Use Types Packs/Day Years [...] encounter Miscellaneous Notes * Telephone Encounter - Karen Belle RN - 04/13/2021 1:44 PM EDT Jeannie Rico [phone] Caller: Symone RITCHIE from [facility] is out in the field. I spoke with Melania JUNG from the [facility] Reason for call: I let Melania know it is up to Symone RITCHIE and whoever referred Jeannie for OT to decide if it should continue. She does not have a surgery date because she needs to be cleared by cardiology and is waiting for tests from them. * Telephone Encounter - Marli Hernández Shahriar - 04/13/2021 1:14 PM EDT Caller: Office If not the patient: Name of caller: Relationship to patient: Personal Rep on file?: Best time to reach caller: anytime Best number to reach caller: [phone] Reason for call: Calling to confirm if okay for patient to continue OT or discontinue until after surgery, not sure if should continue with exercises. Needs clarification on diagnosis and continuation prior to 04/17 when orders run out. Please call and have her paged. Recent Surgery?: No If before 4:00 pm: Inform caller that the typical expectation for a call back is within 1-2 hours. If after 4:00 pm: Inform caller that if the nurse does not call back by the end of the day, they will be called in the AM of the next business day. documented in this encounter Plan of Treatment Not on file documented as of this encounter Visit Diagnoses Not on filedocumented in this encounter Care Teams Elderly Sitter Relationship Specialty Start Date End Date Hoang Castellanos APRN [address] [place] [address] PCP - General Family Medicine 03/12/20 documented as of this encounter
--- OUTSIDE RECORDS SUMMARY | 2024-02-22 00:50 | XMS_ITS | Encounter Summary ---
[place] [address] Care Team Providers Care Site Supervising Technical Operator Name Role Phone Trever Castellanos APRN Primary Care Provider Reason for Visit * Reason Onset Date Comments New Medication Request 05/20/2021 Encounter Details Date Type Department Care Team (Late st Contact Info) Description 05/20/2021 Telephone Primary Care at [facility] [place] [address] Jeannie Luciano RN New Medication Request Social History Tobacco Use Types Packs/Day Years [...] Telephone Encounter - Jeannie Luciano RN - 05/20/2021 1:17 PM EDT Message received from pt that she thought an Rx for tizanidine 4mg BID was going to be sent to [facility] after her conversation with trever Castellanos APRN. Routed note to PCP. documented in this encounter Plan of Treatment Not on file documented as of this encounter Visit Diagnoses Diagnosis Cervicalgia Chronic pain syndrome documented in this encounter Care Teams Site Supervising Technical Operator Relationship Specialty Start Date End Date Trever Castellanos, ROTARY SLICING MACHINE OPERATOR [address] [place] [place] [address] PCP - General Family Medicine 03/12/20 documented as of this encounter
--- OUTSIDE RECORDS SUMMARY | 2024-02-22 00:50 | XMS_ITS | Encounter Summary ---
Author Organization [facility] Address [facility] [place] [address] Care Team Providers Care Chiller Operator Name Role Phone Hoang Castellanos APRN Primary Care Provider Encounter Details Date Type Department Care Team (Late st Contact Info) Description 04/15/2021 10:29 AM EDT - 04/15/2021 10:31 AM EDT Hospital Encounter [place] [phone] Benito Reed MD [facility] [place] [address] Coronary artery disease involving [place] coronary artery of [place] heart without angina pectoris Discharge Disposition: Home [...] daily. 01/27/2020 04/14/2023 lisinopriL (Zestril) 40 mg TabletIndications:[place] essential hypertension TAKE ONE (1) TABLET BY MOUTH EVERY DAY 28 tablet 11 04/14/2021 12/01/2021 Acidophilus Capsule 03/29/2021 05/27/20 fluticasone propion-salmeteroL (ADVAIR) 500-50 mcg/dose Disk with [...] WEEKLY (PM) 4 tablet 11 03/17/2021 02/15/2022 cholecalciferol, Vitamin D3, 50 mcg (2,000 unit) Tablet TAKE ONE (1) TABLET BY MOUTH EVERY DAY (PM) 28 tablet 11 03/17/2021 06/22/2021 isosorbide mononitrate CR (Imdur) 30 mg Tablet Sustained Release 24 hrIndications:Coronary artery disease involving [place] coronary artery of [place] heart without angina pectoris TAKE ONE (1) TABLET BY MOUTH EVERY DAY 28 tablet 11 02/17/2021 01/18/2022 Acidophilus Capsule TAKE TWO (2) CAPSULES BY MOUTH TWICE A DAY (VIAL) 112 capsule 11 12/23/2020 2021 FeroSuL 325 mg (65 mg [...] 09/28/2021 Ventolin HFA 90 mcg/actuation HFA Aerosol InhalerIndications: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 obstructive pulmonary disease, unspecified COPD type [...] Procedure Name Priority Date/Time Associated Diagnosis Comments NUCLEAR PHARMACOLOGIC STRESS CARDIOLOGY Routine 04/15/2021 12:06 PM EDT Coronary artery disease involving [place] coronary artery of [place] heart without angina pectoris documented in this encounter Results * Nuclear Pharmacologic Stress Cardiology (04/15/2021 12:06 PM EDT) Anatomical Region Laterality Modality Other Benito Reed MD CARDIAC SERVICE S ORDERABLES documented in this encounter Visit Diagnoses Diagnosis Coronary artery disease involving [place] coronary artery of [place] heart without angina pectoris documented in this encounter Care Teams Chiller Operator Relationship Specialty Start Date End Date Hoang Castellanos, SAM [address] [place] [address] PCP - General Family Medicine 03/12/20 documented as of this encounter
--- OUTSIDE RECORDS SUMMARY | 2024-02-22 00:50 | XMS_ITS | Encounter Summary ---
[place] [address] Care Team Providers Care Teacher Cclc Name Role Phone Hoang Castellanos APRN Primary Care Provider Encounter Details Date Type Department Care Team (Late st Contact Info) Description 04/14/2021 3:00 PM EDT TH Visit (TeleHealth) [place] [address] Altagracia Pereira MD [facility] [place] [address] Myelopathy; Weakness of both lower limbs; Bilateral hand numbness; Gait disturbance Social History Tobacco Use Types Packs/Day Years [...] as of this encounter Progress Notes * Altagracia Pereira MD - 04/14/2021 3:00 PM EDT Neurology Clinic Telephone/Telehealth Follow-up Note Per COVID19 Restrictions 04/13/21 11:50 PM Patient Name: Jeannie Lawson Trisha : 1960 PCP: Hoang Castellanos APRN Patient ID: Jeannie Rico is a 60 y.o. female was evaluated remotely instead of scheduled FU visit. Last visit was 02/04/2021. Diagnosis: Cervical myelopathy PMHx relevant to diagnosis: Patient Active Problem List Diagnosis ??? Cataract [...] ??? Hypothyroidism, acquired ??? Borderline personality disorder Overview Note: Per [facility] Psychiatry ??? Osteoporosis Overview Note: [facility]: osteoporosis at the left hip T-3, and osteopenia of the spine T-1.9 ??? Smokes cigarettes ??? GERD (gastroesophageal reflux disease) ??? Anxiety ??? Depression ??? Post traumatic stress disorder (PTSD) ??? Hidradenitis suppurativa ??? Chronic pain ??? Cervicalgia Overview Note: ??? Lumbago Overview Note: Assessment from last visit, 02/04/2021: Briefly, this is a very pleasant gentlewoman who presents with a somewhat longstanding complaint offalls in the setting of right lower extremity weakness localized to knee flexion, ankle dorsiflexion and possibly also hip flexion. She does not endorse associated sensory abnormalities although she does have pain localized to the anterior thighs. She has dysesthesias affecting her hands bilaterally and some upper extremity fatigability although this is over several minutes rather than seconds. She endorses lower extremity stiffness but no dysesthesias in her feet. She also endorses some ptosisand diplopia but no chewing or swallowing difficulties. She reports these to be fatigable although t his was not reproduced on telehealth evaluation. I independently reviewed the lumbar spine MRI and did not appreciate sufficient degenerative disc disease that would explain her right-sided weakness and certainly not enough neural foraminal narrowing to place her L5 nerve root on the right at risk. I also independently reviewed the cervical spinefrom 2009 revealing some significant stenosis without cord signal changes. Agree with the impression as elucidated in the resident's note. The most serendipitous explanation would be that her symptoms are emanating from cervical myelopathy due to progression of cervical stenosis as noted from her 2009 MRI; this does not adequately explain asymmetry of lower extremity weakness but this could be related to fascicular injury of descending cord fibers. Within the differential would include a neuromuscular junction defect as well as primary myopathic process but neither of these would account for lower extremity asymmetric weakness. Reviewing the lumbar MRI I think this is unlikely to be radiculopathy but a more distal lesion involving either the sciatic nerve or the lumbosacral plexus could be considered. Her diabetes is not poorly controlled an d would likely be an inadequate explanation for lumbosacral plexopathy. Going against these diagnoses is the absence of significant sensory abnormalities. I recommended serologic studies as elucidated in the resident's note as well as cervical MRI. Telehealth visit will be performed after completion of the cervical MRI. If these do not reveal changes from the 2009 study we will proceed with electrodiagnostic study to evaluate for upper extremity entrapment neuropathies, right lumbosacral plexopathy, radiculopathy, or sciatic mononeuropathy. Interval History: She has not had another fall in the recent past. She was seen by Dr. Bass last while she was supposed to come back to follow up with me. PT has been very helpful. She has been having more trouble with incontinence - this was in July. Numbness in her feet is not bad but the numbness in her hands are more severe. She is experiencing a lot of neck pain. Her leg muscles are good. Her left upper extremity is weaker than th right but she attributes this pain. She has been able to see Dr. Puente about cervical stenosis with myelopathy. In order to get this done she needs to see cardiology and quit smoking. Her Relevant work up: I independently reviewed the cervical MRI - this was revealing for myelopathy. Serologic studies: Component Latest Ref Rng & Units 04/07/2021 02/26/2021 WBC 4.0 - 9.5 x10(3)/mcL 9.4 9.6 (H) RBC 4.00 - 5.21 x10(6)/mcL 4.36 4.48 Hemoglobin 11.7 - 15.5 gm/dL 13.8 14.1 Hematocrit 35.7 - 45.8 % 42.1 43.2 MCV 82.6 - 94.4 fL 96.6 (H) 96.4 (H) MCH 27.1 - 32.0 pg 31.7 31.5 MCHC 31.7 - 35.0 gm/dL 32.8 32.6 Platelets 145 - 357 x10(3)/mcL 236 243 RDWSD 37.0 - 46.0 fL 49.1 (H) 51.8 (H) RDWCV 11.5 - 14.1 % 13.7 14.3 (H) MPV 7.6 - 12.9 fL 10.1 9.8 nRBC % Auto % 0.0 nRBC Abs Auto 0.000 - 0.000 x10(3)/mcL 0.000 Neutrophils % % 71.8 67.7 Neutr Abs (ANC) 1.70 - 6.10 x10(3)/mcL 6.73 (H) 6.51 (H) Lymphocytes % % 20.4 23.3 Lymphocytes Abs 0.9 - 3.2 x10(3)/mcL 1.9 2.2 Monocytes % % 6.2 7.2 Monocyte Abs 0.3 - 0.9 x10(3)/mcL 0.6 0.7 Eosinophils % % 0.7 1.1 Eosinophils Abs 0.0 - 0.4 x10(3)/mcL 0.1 0.1 Basophils % % 0.6 0.5 Basophils Abs 0.0 - 0.1 x10(3)/mcL 0.1 0.0 Immature Gran % % 0.30 0.20 Fartun Gran Abs 0.00 - 0.04 x10(3)/mcL 0.03 0.02 Glucose Lvl 65 - 199 mg/dL 124 107 BUN 8 - 18 mg/dL 18 18 Creatinine 0.70 - 1.20 mg/dL 0.81 0.66 (L) Sodium 135 - 145 mmol/L 140 139 Potassium 3.5 - 5.0 mmol/L 3.9 4.3 Chloride 98 - 107 mmol/L 101 101 CO2 22 - 31 mmol/L 31 25 Anion Gap 5 - 15 mmol/L 8 13 Calcium 8.5 - 10.5 mg/dL 9.6 9.7 Estimated GFR >=60 mL/min/1.73 m?? 79 96 Total Protein 6.1 - 8.0 gm/dL 6.6 Albumin 3.2 - 5.2 gm/dL 4.0 AST 0 - 30 unit/L 9 ALT 0 - 30 unit/L 10 Alk Phos 35 - 105 unit/L 125 (H) Total Bilirubin 0.2 - 1.3 mg/dL 0.2 Bili, Direct 0.0 - 0.3 mg/dL 0.1 ACHr Binding Ab <=0.02 nmol/L 0.00 CK, Total 0 - 160 unit/L 79 Lyme Screening Antibody Neg Neg TSH 0.27 - 4.20 mcIU/mL 2.27 T4, total 5.3 - 11.6 mcg/dL 7.4 Vitamin B-12 232 - 1,245 pg/mL 1,018 Past Medical History: Diagnosis Date ??? Depression ??? Diabetes mellitus ??? Hypertension ??? Obesity, S/P remote gastric bypass in 1995, prior VBG 05/09/2013 ??? Osteoporosis ??? Suicide attempt 08/02/2019 ??? Thyroid disease Medications: Medications 04/07/21 1355 Medication Sig Taking? Acidophilus Capsule fluticasone propion-salmeteroL (ADVAIR) 500-50 mcg/dose Disk with Device Inhale 1 puff into the lungs every 12 hours. Advair Diskus 500-50 mcg/dose Disk with Device alendronate (Fosamax) 70 mg Tablet Take 1 tablet by mouth every 7 days. Take in AM with full glass of water, on an empty stomach. Do not lie down for 30 min. tiotropium bromide (Spiriva Respimat) 2.5 mcg/actuation Mist Inhale 2 puffs into the lungs nightly. aspirin EC 81 mg Tablet, Delayed Release (E.C.) TAKE ONE (1) TABLET BY MOUTH EVERY DAY metoprolol succinate XL (Toprol-XL) 25 mg Tablet Sustained Release 24 hr TAKE ONE-HALF (1/2) TABLETBY MOUTH EVERY DAY Vitamin B-12 1,000 mcg Tablet TAKE ONE (1) TABLET BY MOUTH ONCE WEEKLY (PM) cholecalciferol, Vitamin D3, 50 mcg (2,000 unit) Tablet TAKE ONE (1) TABLET BY MOUTH EVERY DAY (PM) isosorbide mononitrate CR (Imdur) 30 mg Tablet Sustained Release 24 hr TAKE ONE (1) TABLET BY MOUTHEVERY DAY Acidophilus Capsule TAKE TWO (2) CAPSULES BY MOUTH TWICE A DAY (VIAL) FeroSuL 325 mg (65 mg iron) Tablet TAKE ONE (1) TABLET BY MOUTH THREE TIMES A WEEK Incruse Ellipta 62.5 mcg/actuation Disk with Device Inhale 1 puff into the lungs daily. prazosin (Minipress) 2 mg Capsule TAKE THREE (3) CAPSULES BY MOUTH DAILY AT BEDTIME Ventolin HFA 90 mcg/actuation HFA Aerosol Inhaler INHALE 1 TO 2 PUFFS EVERY SIX HOURS NEEDED *CALL TO REFILL* amLODIPine (Norvasc) 5 mg Tablet Take 1 tablet by mouth daily. atorvastatin (Lipitor) 40 mg Tablet Take 1 tablet by mouth daily. omeprazole (PriLOSEC) 20 mg Capsule, Delayed Release(E.C.) TAKE ONE (1) CAPSULE BY MOUTH TWICE A DAY 30 MIN BEFORE BREKAFAST AND IN THE EVENING lisinopriL (Prinivil;Zestril) 40 mg Tablet Take 1 tablet by mouth daily. lamoTRIgine (LaMICtal) 200 mg Tablet Take 1 tablet by mouth daily. levothyroxine (Synthroid) 50 mcg Tablet Take 1 tablet by mouth daily. Pt needs to come in for TSH. nitroGLYcerin (Nitrostat) 0.4 mg Tablet, Sublingual Place 1 tablet under the tongue every 5 minutesas needed for Chest pain. Miscellaneous Medical Supply [facility] 1 walker on wheels with seat ibuprofen (Advil;Motrin) 800 mg Tablet Take 1 tablet by mouth every 8 hours as needed for Pain. sertraline (ZOLOFT) 100 mg Tablet Take 2 tablets by mouth 2 times daily. multivitamin (THERAGRAN) Tablet Take 1 tablet by mouth daily. lancets 30 gauge [facility] 1 each by [facility].(Non-Drug; Combo Route) route daily. ARIPiprazole (Abilify) 5 mg Tablet Take 5 mg by mouth daily. alum-mag hydroxide-simeth (Maalox) 200-200-20 mg/5 mL Suspension Take 10 mLs by mouth every 6 hoursas needed for Indigestion. MARIJUANA ORAL Take by mouth. Allergy: Allergies Allergen Reactions ??? Morphine Shortness Of Breath ??? Sumatriptan Hives ??? Oxycodone Other (See Comments) drunk feeling, dizzy ??? Oxycodone-Acetaminophen Other (See Comments) dizziness, feels drunk ??? Chantix [Varenicline] psychotic ??? Imitrex [Sumatriptan Succinate] Hives ??? Prednisone Other reaction(s): aggitation Assessment / Plan: Jeannie Rico is a 60 y.o. female who presents in follow-up after initially being seen for generalized weakness. At the time of her last visit, impression was of cervical myelopathy and MRI of the cervical spine was recommended. This indeed revealed progression of cervical stenosis with development of severe cervical stenosis without cord signal. She was subsequently seen by Dr. Puente in neurosurgery who recommended cardiac evaluation and cessation of smoking prior to initiation of decompressions procedure. We discussed this today. She is scheduled for nuclear stress scan tomorrow and will be seen cardiology, Dr. Kumari, at the end of April. I was able to reach out to Dr. Kumari, who gracio usly accommodated a sooner appointment in order to help facilitate her pre- surgical assessment. I also asked her to reach out to her primary care provider, Hoang Castellanos, for help with smoking cessation. It is reassuring that she reports stability in her clinical status since my last visit; she has nothad any falls or near falls and her incontinence is stable. However, given progression from beginning of the year, it is reasonable to try to expedite her presurgical assessment. Follow up with myself or Dr. Bass as is her preference. ALTAGRACIA PEREIRA MD [facility] Rn Oncology, Neuromuscular Medicine [facility] 04/13/21 11:50 PM Patient provided verbal consent prior to initiation of this telephone/televisit encounter and expressed understanding that the telephone/televisit may be billed similar to a clinic visit. I spent a total of 25 Minutes in discussion/counseling related to ongoing medical problems, with 10minutes spent in same day chart and test review, ordering testing/drugs, coordination of care and documentation. documented in this encounter Plan of Treatment Not on file documented as of this encounter Visit Diagnoses Diagnosis Myelopathy Unspecified disease of spinal cord Weakness of both lower limbs Other musculoskeletal symptoms referable to limbs Bilateral hand numbness Disturbance of skin sensation Gait disturbance Abnormality of gait documented in this encounter Care Teams Teacher Cclc Relationship Specialty Start Date End Date Hoang Castellanos, BIOPHYSICS PROFESSOR [address] [place] [address] PCP - General Family Medicine 03/12/20 documented as of this encounter
--- OUTSIDE RECORDS SUMMARY | 2024-02-22 00:50 | XMS_ITS | Encounter Summary ---
Author Organization [facility] [place] [address] Care Team Providers Care Chemical Librarian Name Role Phone Hoang Castellanos APRN Primary Care Provider [phone] Encounter Details Date Type Department Care Team (Latest Contact Info) Description 02/26/2021 12:05 PM EDT Laboratory Appointment Laboratory at [facility] [address] [place] [phone] Weakness of both lower limbs; Diplopia Social History Tobacco Use Types Packs/Day Years [...] Procedure Name Priority Date/Time Associated Diagnosis Comments HEMOGRAM Routine 02/26/2021 12:14 PM EDT Weakness of both lower limbs DIFFERENTIAL, AUTOMATED Routine 02/26/2021 12:14 PM EDT Weakness of both lower limbs HC PCH ACETYLCHOLINE RECEPTOR ANTIBODY Routine 02/26/2021 12:14 PM EDT Weakness of both lower limbs Diplopia HC CBC,PLT & AUTO DIFF Routine 12:14 PM EDT Weakness of both lower limbs HC CREATINE PHOSPHOKINASE, SERUM Routine 02/26/2021 12:14 PM EDT Weakness of both lower limbs HC VENIPUNCTURE Routine 02/26/2021 12:14 PM EDT Weakness of both lower limbs documented in this encounter Results * (ABNORMAL) Differential, Automated (02/26/2021 12:14 PM EDT) Neutrophils % 67.7 % [facility] Neutr Abs (ANC) 6.51(H) 1.70 - 6.10 x10(3)/mc L [facility] Lymphocytes % 23.3 % [facility] Lymphocytes Abs 2.2 0.9 - 3.2 x10(3)/mc L [facility] Monocytes % 7.2 % [facility] Monocyte Abs 0.7 0.3 - 0.9 x10(3)/mc L [facility] Eosinophils % 1.1 % [facility] Eosinophils Abs 0.1 0.0 - 0.4 x10(3)/mc L [facility] Basophils % 0.5 % [facility] Basophils Abs 0.0 0.0 - 0.1 x10(3)/mc L [facility] Immature Gran % 0.20 % [facility] Comment: Immature granulocytes(IG's)percentage and absolute count will include metamyelocytes, myelocytes, and promyelocytes. Blood smears from CBCs yielding IG's will be scanned manually for concordance. If this scan disagrees with the automated IG or if promyelocytes are noted, a manual differential will be performed. Fartun Gran Abs 0.02 0.00 - 0.04 x10(3)/mc L [facility] Blood 02/26/2021 12:1 4 PM EDT 02/26/2021 12:26 PM EDT Narrative Resulting Agency Comment Spec In Lab Altagracia Baltazar MD HEMATOLOGY ORDERABL ES Performing Organization Address [facility] de Phone Number [facility] [address] [place] [address] * (ABNORMAL) Hemogram (02/26/2021 12:14 PM EDT) WBC 9.6(H) 4.0 - 9.5 x10(3)/mcL [facility] RBC 4.48 4.00 - 5.21 x10(6)/mcL [facility] Hemoglobin 14.1 11.7 - 15.5 gm/dL [facility] Hematocrit 43.2 35.7 - 45.8 % [facility] MCV 96.4(H) 82.6 - 94.4 fL [facility] MCH 31.5 27.1 - 32.0 pg [facility] MCHC 32.6 31.7 - 35.0 gm/dL [facility] Platelets 243 145 - 357 x10(3)/mcL [facility] RDWSD 51.8(H) 37.0 - 46.0 fL [facility] RDWCV 14.3(H) 11.5 - 14.1 % [facility] MPV 9.8 7.6 - 12.9 fL [facility] Blood 02/26/2021 12:1 4 PM EDT 02/26/2021 12:26 PM EDT Narrative Resulting Agency Comment Spec In Lab Altagracia Baltazar MD HEMATOLOGY ORDERABL ES Performing Organization Address [facility] Co de Phone Number [facility] [address] [place] [address] * CK (02/26/2021 12:14 PM EDT) CK, Total 79 0 - 160 unit/L [facility] Blood 02/26/2021 12:1 4 PM EDT 02/26/2021 12:26 PM EDT Narrative Resulting Agency Comment Spec In Lab Altagracia Baltazar MD CHEMISTRY ORDERABLE S Performing Organization Address [facility] de Phone Number [facility] [address] [place] [address] * Acetylcholine Receptor Ab Binding (02/26/2021 12:14 PM EDT) [facility] ACHr Binding Ab 0.00 <=0.02 nmol/L [facility] Comment: ADDITIONAL INFORMATION This test was developed and its performance characteristics determined by [facility] in a manner consistent with CLIA requirements. This test has not been cleared or approved by the U.S. Food and Drug Administration. Test Performed by: [address] [address] Remote Encoding Operations Supervisor: Skinny Reyes M.D. Ph.D.; CLIA# [id number] Blood 02/26/2021 12:1 4 PM EDT 02/26/2021 5:14 PM EDT Narrative Resulting Agency Comment Spec In Lab Altagracia Baltazar MD CHEMISTRY ORDERABLE S Performing Organization Address [facility] de Phone Number [facility] [address] [place] [address] * (ABNORMAL) Basic Metabolic Panel (non-fasting) (02/26/2021 12:14 PM EDT) [facility] Glucose Lvl 107 65 - 199 mg/dL [facility] Comment:Diabetes: >=200 mg/d L plus symptoms BUN 18 8 - 18 mg/dL [facility] Creatinine 0.66(L) 0.70 - 1.20 mg/dL [facility] Sodium 139 135 - 145 mmol/L [facility] Potassium 4.3 3.5 - 5.0 mmol/L [facility] Comment: Please note: ??Patients with WBC >100,000 may have falsely elevated Potassium levels. ??For accurate Potassium quantification in these patients send serum separator tube (gold top) for subsequent determinations. ??Contact the Clinical Chemistry Laboratory if there are any questions. Chloride 101 98 - 107 mmol/L [facility] CO2 25 22 - 31 mmol/L [facility] Anion Gap 13 5 - 15 mmol/L [facility] Calcium 9.7 8.5 - 10.5 mg/dL [facility] Estimated GFR 96 >=60 mL/min/1. 73 m?? [facility] Comment: This patient? s estimated glomerular filtration rate (eGFR) is between 96 mL/min/1.73 m2 (patients with less muscle mass per kg body weight) and 111 mL/min/1.73 m2 (patients with more muscle mass [...] and symptoms in addition to eGFR. Blood 02/26/2021 12:1 4 PM EDT 02/26/2021 12:26 PM EDT Narrative Resulting Agency Comment Spec In Lab Altagracia Baltazar MD CHEMISTRY ORDERABLE S [facility] [address] [place] [address] documented in this encounter Visit Diagnoses Diagnosis Weakness of both lower limbs Other musculoskeletal symptoms referable to limbs Diplopia documented in this encounter Care Teams Chemical Librarian Relationship Specialty Start Date End Date Hoang Castellanos, END FRAZER [address] [place] [address] PCP - General Family Medicine 03/12/20 documented as of this encounter
--- OUTSIDE RECORDS SUMMARY | 2024-02-22 00:50 | XMS_ITS | Encounter Summary ---
[place] [address] Care Team Providers Care Pooling Operator Name Role Phone Hoang Castellanos APRN Primary Care Provider [phone] Reason for Referral * Diagnostic Test (Routine) - Closed Specialty Diagnoses / Procedures Referred By Contac t Referred To Contact Radiology Diagnoses Weakness of both lower limbs Bilateral hand numbness Procedures MRI Cervical Spine wo Contrast (Generic) Altagracia Baltazar MD [facility] [place] [address] [place] [address] Referral ID Status Reason Start Date Expiration Date V isits Requested Visits Authorized [id number] Closed Specialty Service Requested 02/04/2021 08/07/2022 1 1 Reason for Visit * Diagnostic Test (Routine) - Closed Specialty Diagnoses / Procedures Referred By Contac t Referred To Contact Radiology Diagnoses Weakness of both lower limbs Bilateral hand numbness Procedures MRI Cervical Spine wo Contrast (Generic) Altagracia Baltazar MD [facility] [address] [place] [address] Referral ID Status Reason Start Date Expiration Date V isits Requested Visits Authorized [id number] Closed Specialty Service Requested 02/04/2021 08/07/2022 1 1 Encounter Details Date Type Department Care Team (Latest Contact Info) Description 03/10/2021 7:01 AM EDT - 03/10/2021 11:59 PM EDT Hospital [place] [address] Altagracia Baltazar MD [facility] [place] [address] Weakness of both lower limbs; Bilateral hand numbness Discharge Disposition: Home Social History Tobacco Use [...] by mouth 2 times daily. 01/27/2020 04/14/2023 Advair Diskus 500-50 mcg/dose Disk with Device 03/01/2021 04/24/2021 isosorbide mononitrate CR (Imdur) 30 mg Tablet Sustained Release 24 hrIndications:Coronary artery disease involving [place] coronary artery of [place] heart without angina pectoris TAKE ONE (1) [...] 09/28/2021 Ventolin HFA 90 mcg/actuation HFA Aerosol InhalerIndications:Charge Account Authorizer randell obstructive pulmonary disease, unspecified COPD type [...] THE EVENING 56 capsule 11 10/02/2020 09/01/2021 lisinopriL (Prinivil;Zestril) 40 mg TabletIndications:Benig n essential hypertension Take 1 tablet by mouth daily. 90 tablet 2 09/01/2020 04/14/2021 lamoTRIgine (LaMICtal) 200 mg Tablet Take 1 [...] Chest pain. 30 tablet 1 06/02/2020 12/01/2021 cholecalciferol, Vitamin D3, (Vitamin D-3) 50 mcg (2,000 unit) Tablet Take 1 tablet by mouth daily. 90 tablet 3 04/28/2020 03/17/2021 cyanocobalamin, Vitamin B-12, (Vitamin B-12) 1,000 mcg TabletIndications:B12 deficiency Take 1 tablet by mouth once a week. 12 tablet 3 04/28/2020 03/17/2021 metoprolol succinate XL (Toprol-XL) 25 mg Tablet Sustained Release 24 hr Take 0.5 tablets by mouth daily. 45 tablet 3 04/28/2020 03/17/2021 alendronate (Fosamax) 70 mg TabletIndications:Age-r elated osteoporosis without current pathological fracture Take 1 tablet by mouth every 7 days. Take in AM with full glass of water, on an empty stomach. Do not lie down for 30 min. 52 tablet 04/01/2020 03/23/2021 ibuprofen (Advil;Motrin) 800 mg TabletIndications:Chron ic right-sided [...] 6 hours as needed for Indigestion. 11/26/2021 tiotropium bromide (SPIRIVA RESPIMAT) 2.5 mcg/actuation MistIndications:Asthma with acute exacerbation, unspecified asthma severity, unspecified whether persistent Inhale 2 puffs into the lungs nightly. 12 g 3 06/04/2019 03/23/2021 documented as of this encounter Plan of Treatment Not on file documented as of this encounter Procedures Procedure Name Priority Date/Time Associated Diagnosis Comments MRI CERVICAL SPINE WO CONTRAST Routine 03/10/2021 8:29 AM EDT Weakness of both lower limbs Bilateral hand numbness documented in this encounter Results * MRI Cervical Spine wo Contrast (Generic) (03/10/2021 8:29 AM EDT) Anatomical Region Laterality Modality C-spine Magnetic Resonan ce Impressions 03/10/2021 10:54 AM EDT 1. ??Examination severely degraded by motion artifact. 2. ??Degenerative changes greatest at C5-C6 and C6-C7 where there is severe canal stenosis, moderate/severe bilateral neural foraminal narrowing, and likely degenerative marrow signal changes in the vertebral bodies. Thank you for letting us participate in the care of this patient. ??If you are a health care provider and have any questions regarding this report, please contact the number below. ??For patients who have questions please contact the health manager managed care that requested your imaging first. ? Narrative 03/10/2021 10:54 AM EDT EXAMINATION: MRI CERVICAL SPINE WO CONTRAST (GENERIC) CLINICAL HISTORY: Myelopathy, acute or progressive TECHNIQUE: MRI of the cervical spine performed without intravenous contrast administration. COMPARISON: MRI cervical spine 05/19/2009 FINDINGS: The examination is markedly degraded by motion artifact. Alignment is unremarkable and unchanged from the prior MRI. The vertebral bodies are normal in height. Moderate loss of intervertebral disc heights at C5-C6 and C6-C7. Abnormal marrow signal at the C5 and C6 vertebral bodies, hypointense on T1-weighted images and hyperintense on the STIR sequence, indicating edema that is most likely degenerative in etiology. The cervical spinal cord is narrowed at the C5-C6 levels and there is increased central T2 signal in the cord, greatest at the level of C6 on sagittal STIR image 8. The remainder of the cervical cord is normal in signal and caliber. No prevertebral or perivertebral soft tissue abnormalities. C2-C3: Normal. No disc herniation, canal stenosis or neural foraminal narrowing. C3-C4: Normal. C4-C5: Small central disc protrusion indents the ventral thecal sac. Bilateral uncovertebral and facet arthropathy contribute to mild bilateral neural foraminal narrowing. Mild overall canal stenosis. C5-C6: Severe central canal stenosis secondary to central disc protrusion, bilateral uncovertebral and facet arthropathy, as well as congenitally short pedicles. Severe bilateral neural foraminal narrowing. No definite interval change. C6-C7: Severe central canal stenosis secondary to central disc protrusion, uncovertebral and facet arthropathy. Congenitally short pedicles at this level as well. Moderate bilateral neural foraminal narrowing. No definite interval change. C7-T1: No disc herniation, canal stenosis or neural foraminal narrowing. Procedure Note Xander Whittington MD - 03/10/2021 EXAMINATION: MRI CERVICAL SPINE WO CONTRAST (GENERIC) CLINICAL HISTORY: Myelopathy, acute or progressive TECHNIQUE: MRI of the cervical spine performed without intravenous contrastadministration. COMPARISON: MRI cervical spine 05/19/2009 FINDINGS: The examination is markedly degraded by motion artifact. Alignment is unremarkable and unchanged from the prior MRI. The vertebral bodies arenormal in height. Moderate loss of intervertebral disc heights at C5-C6 andC6-C7. Abnormal marrow signal at the C5 and C6 vertebral bodies, hypointense on T1-weighted images and hyperintense on the STIR sequence, indicating edemathat is most likely degenerative in etiology. The cervical spinal cord is narrowed at the C5-C6 levels and there isincreased central T2 signal in the cord, greatest at the level of C6 on sagittalSTIR image 8. The remainder of the cervical cord is normal in signal andcaliber. No prevertebral or perivertebral soft tissue abnormalities. C2-C3: Normal. No disc herniation, canal stenosis or neural foraminalnarrowing. C3-C4: Normal. C4-C5: Small central disc protrusion indents the ventral thecal sac.Bilateral uncovertebral and facet arthropathy contribute to mild bilateral neural foraminal narrowing. Mild overall canal stenosis. C5-C6: Severe central canal stenosis secondary to central discprotrusion, bilateral uncovertebral and facet arthropathy, as well as congenitallyshort pedicles. Severe bilateral neural foraminal narrowing. No definiteinterval change. C6-C7: Severe central canal stenosis secondary to central discprotrusion, uncovertebral and facet arthropathy. Congenitally short pedicles at thislevel as well. Moderate bilateral neural foraminal narrowing. No definiteinterval change. C7-T1: No disc herniation, canal stenosis or neural foraminal narrowing. IMPRESSION 1. Examination severely degraded by motion artifact. 2. Degenerative changes greatest at C5-C6 and C6-C7 where there is severecanal stenosis, moderate/severe bilateral neural foraminal narrowing, andlikely degenerative marrow signal changes in the vertebral bodies. Thank you for letting us participate in the care of this patient. If youare a health care provider and have any questions regarding this report,please contact the number below. For patients who have questions please contactthe health manager managed care that requested your imaging first. Altagracia Baltazar MD IMG MRI ORDERABLES documented in this encounter Visit Diagnoses Diagnosis Weakness of both lower limbs Other musculoskeletal symptoms referable to limbs Bilateral hand numbness Disturbance of skin sensation documented in this encounter Care Teams Pooling Operator Relationship Specialty Start Date End Date Hoang Castellanos, SENIOR ACCOUNT DIRECTOR [address] [place] [address] PCP - General Family Medicine 03/12/20 documented as of this encounter
--- OUTSIDE RECORDS SUMMARY | 2024-02-22 00:50 | XMS_ITS | Encounter Summary ---
Author Organization [facility] [place] [address] Care Team Providers Care Livestock Buyer Name Role Phone Hoang Castellanos APRN Primary Care Provider Reason for Visit * Reason Comments Right Leg Pain * Consultation (Routine) - Closed Specialty Diagnoses / Procedures Referred By Vanita dimas Referred To Contact Orthopaedics Diagnoses Chronic pain of right ankle Hoang Castellanos APRN [address] [facility] [address] [facility] [address] [place] [address] Referral ID Status Reason Start Date Expiration Date V isits Requested Visits Authorized [id number] Closed Specialty Service Requested 12/17/2020 12/17/2021 12 12 Encounter Details Date Type Department Care Team (Late st Contact Info) Description 02/26/2021 1:00 PM EDT Office Visit Orthopaedics at [facility] [address] [place] [address] Alexis Menezes PA [address] [facility] [place] [address] Chronic pain of right ankle Social History Tobacco Use Types Packs/Day Years [...] as of this encounter Progress Notes * Alexis Menezes PA - 02/26/2021 1:00 PM EDT PATIENT NAME: Jeannie Rico AGE: 60 y.o. MR#: [id number] DATE OF VISIT: 02/26/2021 DATE OF INJURY/ONSET: 07/03/2021 CHIEF COMPLAINT: Right Ankle Pain HISTORY OF PRESENT ILLNESS Jeannie Rico is a 60 y.o. year old female who presents to the clinic today for evaluation of right ankle pain. The patient reports that she injured the ankle on 07/03/2020. She was seen at [facility] emergency department and treated for sprain. Today she reports that she really does not have ankle pain. Her biggest issue is weakness with ankle dorsiflexion. She sometimes drags her foot and this causes her to fall. She has had repeated falls due to a lack of balance, right lower extremity weakness and this intermittent what she calls foot drop. She denies any associated numbness or tingling of thelower extremities. She denies of any pain of her ankle. She denies any prior history of ankle fracture. She is currently doing home VNA physical therapy with C[facility] who is working with her on lower extremity strengthening balance and proprioception. The patient has been recently seen neurology for evaluation of her above symptoms. She has a cervical MRI that is scheduled as well as some lab test for blood. The patient uses a walker to ambulate. Outside reports reviewed: none. Past Medical History: Diagnosis Date ??? Depression ??? Diabetes mellitus ??? Hypertension ??? Obesity, S/P remote gastric bypass in 1995, prior VBG 05/09/2013 ??? Osteoporosis ??? Suicide attempt 08/02/2019 ??? Thyroid disease Patient Active Problem List Diagnosis Date Noted [...] Chronic pain ??? Cervicalgia ??? Lumbago Past Surgical History: Procedure Laterality Date ??? [...] BIOPSY performed by Ken Sanders MD at [facility] ??? PRO UPPER GI ENDOSCOPY, BIOPSY N/A 09/19/2018 UPPER GASTROINTESTINAL ENDOSCOPY,WITH BIOPSY SINGLE OR MULTIPLE (WRVU 2.49) performed by Tyron Mercado MD at [facility] ??? TONSILLECTOMY ??? UPPER GI ENDOSCOPY, EXAM 12/04/2010 UPPER GI ENDOSCOPY performed by DEE WRIGHT at [facility] Family History Problem Relation Age of Onset [...] ??? Other Sister 43 Breast Neoplasm, Benign Social History Socioeconomic History ??? Marital status: Spouse name: Not on file ??? Number of children: Not on file ??? Years of education: Not on file ??? Highest education level: Not on file Occupational History ??? Not on file Tobacco Use ??? Smoking status: Current Every Day Smoker Packs/day: 1.50 Years: 45.00 Pack years: 67.50 Types: Cigarettes ??? Smokeless tobacco: Never Used Vaping Use ??? Vaping Use: Never used Substance and Sexual Activity ??? Alcohol use: No Comment: not drank in 24 years ??? Drug use: Yes Types: Marijuana Comment: 3 times per day, medical ??? Sexual activity: Not on file Other Topics Concern ??? Do You live alone? No ??? Tobacco in Home Not Asked Social History Narrative ??? Not on file Social Determinants of Health Financial Resource Strain: ??? Difficulty of Paying Living Expenses: Food Insecurity: ??? Worried About Running Out of Food in the Last Year: ??? Ran Out of Food in the Last Year: Transportation Needs: ??? Lack of Transportation (Medical): ??? Lack of Transportation (Non-Medical): Physical Activity: ??? Days of Exercise per Week: ??? Minutes of Exercise per Session: Current Outpatient Medications Medication Sig Dispense Refill ??? isosorbide mononitrate CR (Imdur) 30 mg [...] for Chest pain. 30 tablet 1 ??? aspirin EC 81 mg Tablet, Delayed Release (E.C.) Take 1 tablet by mouth daily. 90 tablet 3 ??? cholecalciferol, Vitamin D3, (Vitamin D-3) 50 mcg (2,000 unit) Tablet Take 1 tablet by mouth daily. 90 tablet 3 ??? cyanocobalamin, Vitamin B-12, (Vitamin B-12) 1,000 mcg Tablet Take 1 tablet by mouth once a week. 12 tablet 3 ??? metoprolol succinate XL (Toprol-XL) 25 mg Tablet Sustained Release 24 hr Take 0.5 tablets by mouth daily. 45 tablet 3 ??? alendronate (Fosamax) 70 mg Tablet Take 1 tablet by mouth every 7 days. Take in AM with full glass of water, on an empty stomach. Do not lie down for 30 min. 52 tablet 0 ??? Miscellaneous Medical Supply Misc 1 walker [...] lancets 30 gauge Misc 1 each by [facility].(Non-Drug; Combo Route) route daily. (Patient not taking: Reported on 02/03/2021) 100 each 3 ??? ARIPiprazole (Abilify) 5 mg Tablet Take 5 mg by mouth daily. ??? lactobacillus rhamnosus, GG, (CULTURELLE) 10 billion cell Capsule Take 2 capsules by mouth 2 times daily. ??? alum-mag hydroxide-simeth (Maalox) 200-200-20 mg/5 mL Suspension Take 10 mLs by mouth every 6 hours as needed for Indigestion. ??? tiotropium bromide (SPIRIVA RESPIMAT) 2.5 mcg/actuation Mist Inhale 2 puffs into the lungs nightly. 12 g 3 ??? MARIJUANA ORAL Take by mouth. No current facility-administered medications for this visit. Allergies Allergen Reactions ??? Morphine Shortness Of Breath ??? Sumatriptan Hives ??? Oxycodone Other (See Comments) drunk feeling, dizzy ??? Oxycodone-Acetaminophen Other (See Comments) dizziness, feels drunk ??? Chantix [Varenicline] psychotic ??? Imitrex [Sumatriptan Succinate] Hives ??? Prednisone Other reaction(s): aggitation REVIEW OF SYMPTOMS: Constitutional: Denies fever, chills, fatigue Cardiovascular: Denies chest pain Respiratory: Denies shortness of breath Gastrointestinal: Denies nausea, vomiting, diarrhea, constipation or abdominal pain Neurovascular: Denies numbness or tingling Musculoskeletal: Admits Psychiatric: Mood and affect appropriate PHYSICAL EXAM Constitution: Patient sits in the clinic today in no apparent distress.Grossly oriented to person, place, and time. The patient is alert and oriented x 3. Appearance is age-appropriate, affect is similarly appropriate. Gait: Unable to ambulate, patient sat in her wheelchair throughout General: alert and oriented. She appears in no acute discomfort and is resting comfortably in a chair in the exam room. Right Foot & Ankle Exam Standing alignment reveals well-maintained longitudinal arches bilaterally. There is not obvious swelling or deformities. The foot and ankle is nontender to palpation. ROM & Stablility: Full and equal subtalar ROM. There is not gross ankle instability with a negative anterior drawer and talar tilt testing. Ankle: Dorsiflexion: neutral deg Plantar Flexion: 40 deg Motor strength Ankle Dorsiflexion: 4/5 Ankle Plantar Flexion: 5/5 Eversion: 4/5 Inversion: 5/5 Great Toe Dorsiflexion: 5/5 Great Toe Plantar Flexion: 5/5 Tests: negative Ivan's Sign negative Christiansen Test Neurovascular Evaluation DP and TP pulses are 2+ The patient sensation is intact in the sural, deep peroneal, superficial peroneal nerve distributions. RADIOLOGICAL STUDIES: right ankle/foot X-ray series were performed on 02/26/2021 at [facility] which showed healing distal fibula fracture with bony callous present, no seen on previous images on 07/03/2020. ASSESSMENT/PLAN: Jeannie Rico is a 60 y.o. female presents to the clinic with right ankle weakness without any pain. The patient had x-rays performed of her ankle today which show healing fracture of the distal fibula which is not present on her previous x-rays taken on 07/03/2020. We discussed she likely fracture the ankle sometime after that x-ray was taken. The patient does not recall any time that she has had ankle pain or limitations. Her biggest limitation she reports is in regards to her ankle is weakness with dorsiflexion. Patient is currently undergoing a work-up for cervical myelopathy which may be causing her weakness of the right lower extremity. She has a cervical MRI scheduled along with lab oratory testing which are pending. Questions solicited and answered. Patient voiced understanding to info/instructions given. The Pathophysiology and treatment options were discussed with the patient to include, NSAIDS, physical therapy, cortisone injections, further diagnostic imaging, and surgical intervention. I discussed that their treatment plan will be determined by how they feel and how they are able to do what they want to do. Continue working with physical therapy and performing your home physical therapy exercises on lowerextremity strengthening, gait, balance, proprioception and return to functional activities. We discussed given that she has no pain over her ankle do not recommend any bracing, we discussed that comfortable supportive shoes would be helpful for her foot and ankle. Recommend she follow-up with neurology to further evaluate her complaints of lower extremity weakness and history of recurrent falls. Patient is agreeable with this approach. Please refer to the [employer] website at [email or web address], the patient information section. Click on the shoulder and it will direct you to information regarding your injury. Discussed with patient indications for prompt return or to call the clinic if they have any questions, otherwise they will follow-up as needed and with their PCP as scheduled. Marcin Menezes PA-C documented in this encounter Plan of Treatment Scheduled Referrals Name Type Priority Associated Diagnoses Order Schedule Referral to Orthopaedics Outpatient Referral Routine Chronic pain of right ankle Ordered: 12/17/2020 documented as of this encounter Visit Diagnoses Diagnosis Chronic pain of right ankle documented in this encounter Care Teams Livestock Buyer Relationship Specialty Start Date End Date Hoang Castellanos, SAM [address] [place] [address] PCP - General Family Medicine 03/12/20 documented as of this encounter
--- OUTSIDE RECORDS SUMMARY | 2024-02-22 00:50 | XMS_ITS | Encounter Summary ---
Author Organization [facility] [place] [address] Care Team Providers Care Flake Cutter Operator Name Role Phone Hoang Castellanos APRN Primary Care Provider [phone] Reason for Visit * Reason Comments Medication Refill Encounter Details Date Type Department Care Team (Late st Contact Info) Description 02/16/2021 Refill Primary Care at [facility] [address] [place] [phone] Hoang Castellanos APRN [address] [facility] [place] [address] Coronary artery disease involving [place] coronary artery of [place] heart without angina pectoris Social History Tobacco [...] Telephone Encounter - Meena Galloway CCMA - 02/17/2021 9:37 AM EDT Imudur 30 mg Last Prescription Fill Date: 03/21/2020 Number Dispensed and Refills: 90/3 Last Related Office Visit: 12/15/2020 Upcoming Appointment: 03/23/2021 Lab Results Component Value Date HGB 14.6 10/14/2020 HCT 45.7 10/14/2020 CHLPL 114 12/27/2019 TRIG 102 12/27/2019 HDL 38 12/27/2019 LDLCHOL 56 12/27/2019 ALT 6 10/14/2020 AST 11 10/14/2020 NA 138 10/14/2020 K 4.1 10/14/2020 CL 99 10/14/2020 CREATININE 0.72 10/14/2020 TSH 1.96 10/14/2020 INR 1.0 07/03/2020 HA1C 5.7 (H) 10/14/2020 documented in this encounter Plan of Treatment Not on file documented as of this encounter Visit Diagnoses Diagnosis Coronary artery disease involving [place] coronary artery of [place] heart without angina pectoris documented in this encounter Care Teams Flake Cutter Operator Relationship Specialty Start Date End Date Hoang Castellanos, SAM [address] [place] [address] PCP - General Family Medicine 03/12/20 documented as of this encounter
--- OUTSIDE RECORDS SUMMARY | 2024-02-22 00:50 | XMS_ITS | Encounter Summary ---
[place] [address] Care Team Providers Care Pollution Control Chemist Name Role Phone Hoang Castellanos APRN Primary Care Provider Encounter Details Date Type Department Care Team (Latest Contact Info) Description 05/26/2021 10:20 AM EDT Ancillary Procedure Radiology Mammo at [facility] [address] [place] [phone] Hoang Castellanos APRN [address] [place] [address] Breast cancer screening by mammogram Social History [...] Procedure Name Priority Date/Time Associated Diagnosis Comments MAMMO SCREENING CAD AND JESSY BILATERAL Routine 05/26/2021 10:30 AM EDT Breast cancer screening by mammogram documented in this encounter Results * Mammo Screening Cad and Jessy Bilateral [...] by: Serafin Yan MD Hoang Castellanos APRN IM MAMMO ORDERABLES documented in this encounter Visit Diagnoses Diagnosis Breast cancer screening by mammogram documented in this encounter Care Teams Pollution Control Chemist Relationship Specialty Start Date End Date Hoang Castellanos APRN [address] [place] [address] PCP - General Family Medicine 03/12/20 documented as of this encounter
--- OUTSIDE RECORDS SUMMARY | 2024-02-22 00:50 | XMS_ITS | Encounter Summary ---
[place] [address] Care Team Providers Care Senior Microstrategy Developer Name Role Phone Hoang Castellanos APRN Primary Care Provider [phone] Reason for Referral * Diagnostic Test (Routine) - Closed Specialty Diagnoses / Procedures Referred By Vanita dimas Referred To Contact Radiology Diagnoses Weakness of both lower limbs Bilateral hand numbness Procedures MRI Cervical Spine wo Contrast (Generic) Altagracia Baltazar MD [facility] [place] [address] [place] [address] Referral ID Status Reason Start Date Expiration Date V isits Requested Visits Authorized [id number] Closed Specialty Service Requested 02/04/2021 08/07/2022 1 1 Encounter Details Date Type Department Care Team (Late st Contact Info) Description 02/04/2021 [place] [address] Altagracia Baltazar MD [facility] [place] [address] Weakness of both lower limbs; Bilateral hand numbness; Gait disturbance; Diplopia Social History Tobacco Use Types Packs/Day [...] documented as of this encounter Results * MRI Cervical Spine [...] who have questions please contact the health day care worker that requested your imaging first. ? Electronically signed by: Xander Whittington MD, [facility] ([phone]), at 03/10/2021 10:54 AM Narrative 03/10/2021 10:54 AM EDT EXAMINATION: MRI [...] patients who have questions please contactthe health day care worker that requested your imaging first. Electronically signed by: Xander Whittington MD, [facility]([phone]), at 03/10/2021 10:54 AM Altagracia Baltazar MD [facility] MRI ORDERABLES * (ABNORMAL) Basic Metabolic Panel (non-fasting) (02/26/2021 12:14 PM EDT) [facility] Glucose Lvl 107 65 - 199 [...] questions. Chloride 101 98 - 107 mmol/L [facility] CO2 25 22 - 31 mmol/L [facility] Anion Gap 13 5 - 15 mmol/L [facility] Calcium 9.7 8.5 - 10.5 mg/dL [facility] Estimated GFR 96 >=60 mL/min/1. 73 m?? [facility] Comment: This patient? s estimated glomerular [...] Lab Altagracia Baltazar MD CHEMISTRY ORDERABLE S [facility] [address] [place] [address] * Acetylcholine Receptor Ab Binding (02/26/2021 12:14 PM EDT) ACHr Binding Ab 0.00 <=0.02 nmol/L [facility] Comment: ADDITIONAL INFORMATION This test was developed and its performance characteristics determined by [facility] in a manner consistent with CLIA requirements. This test has not been cleared or approved by the U.S. Food and Drug Administration. Test Performed by: [address] [address] Sales Analytics Manager: Skinny Reyes M.D. Ph.D.; CLIA# [id number] Blood 02/26/2021 12:1 4 PM EDT 02/26/2021 5:14 PM EDT Narrative Resulting Agency Comment Spec In Lab Altagracia Baltazar MD CHEMISTRY ORDERABLE S Performing Organization Address City/[facility] Co de Phone Number [facility] [address] [place] [address] * CK (02/26/2021 12:14 PM EDT) CK, Total 79 0 - 160 unit/L [facility] Blood 02/26/2021 12:1 4 PM EDT 02/26/2021 12:26 PM EDT Narrative Resulting Agency Comment Spec In Lab Altagracia Baltazar MD CHEMISTRY ORDERABLE S Performing Organization Address [facility] Co de Phone Number [facility] [address] [place] [address] documented in this encounter Visit Diagnoses Diagnosis Weakness of both lower limbs Other musculoskeletal symptoms referable to limbs Bilateral hand numbness Disturbance of skin sensation Gait disturbance Abnormality of gait Diplopia Weakness of both lower limbs Other musculoskeletal symptoms referable to limbs Bilateral hand numbness Disturbance of skin sensation documented in this encounter Care Teams Senior Microstrategy Developer Relationship Specialty Start Date End Date Hoang Castellanos, SERVICE BAR CASHIER [address] [place] [address] PCP - General Family Medicine 03/12/20 documented as of this encounter
--- OUTSIDE RECORDS SUMMARY | 2024-02-22 00:50 | XMS_ITS | Encounter Summary ---
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 Procedures NM Pharmacologic Stress and Rest Myocardial Perfusion Dustin Haynes, [facility] [place] [address] [place] [address] Referral ID Status Reason Start Date Expiration Date V isits Requested Visits Authorized [id number] Closed Specialty Service Requested 02/16/2021 07/24/2021 1 1 Encounter Details Date Type Department Care Team (Late st Contact Info) Description 04/15/2021 10:32 AM EDT Hospital En[place] [address] Benito Reed MD [facility] [place] [address] Discharge Disposition: Home Social History Tobacco Use [...] 01/27/2020 04/14/2023 lisinopriL (Zestril) 40 mg TabletIndications:Candy n essential [...] Sustained Release 24 hrIndications:Coronary artery disease involving [place] lions coronary artery of [place] lions heart without angina pectoris TAKE ONE (1) [...] 09/28/2021 Ventolin HFA 90 mcg/actuation HFA Aerosol InhalerIndications:Fuel Cell Battery Technician randell obstructive pulmonary disease, unspecified COPD type [...] 11:37 AM EDT Coronary artery disease involving [place] lions coronary artery of port lions heart without angina pectoris documented in this [...] who have questions please contact the health rn primary care that requested your imaging first. ? Electronically signed by: Matthew Morrison MD, [facility] ([phone]), at 04/15/2021 3:42 PM Narrative 04/15/2021 3:42 [...] patients who have questions please contactthe health rn primary care that requested your imaging first. Electronically signed by: Matthew Morrison MD, [facility]([phone]), at 04/15/2021 3:42 PM Benito Reed MD IMG NM ORDERABL ES * NM Pharmacologic Stress and Rest Myocardial [...] who have questions please contact the health rn primary care that requested your imaging first. ? Electronically signed by: Matthew Morrison MD, [facility] ([phone]), at 04/15/2021 3:42 PM Narrative 04/15/2021 3:42 [...] patients who have questions please contactthe health rn primary care that requested your imaging first. Electronically signed by: Matthew Morrison MD, [facility]([phone]), at 04/15/2021 3:42 PM Benito Reed MD IM NM ORDERABL ES documented in this encounter Visit Diagnoses Not on filedocumented in this encounter Care Teams Telephone Diaphragm Assembler Relationship Specialty Start Date End Date Hoang Castellanos APRN [address] [place] [place] [address] PCP - General Family Medicine 03/12/20 documented as of this encounter
--- OUTSIDE RECORDS SUMMARY | 2024-02-22 00:50 | XMS_ITS | Encounter Summary ---
Author Organization [facility] [place] [address] Care Team Providers Care Soda Tester Name Role Phone Hoang Castellanos APRN Primary Care Provider Reason for Visit * Reason Comments Medication Refill Encounter Details Date Type Department Care Team (Late st Contact Info) Description 03/16/2021 Refill Primary Care at [facility] [address] [place] [phone] Hoang Castellanos APRN [address] [facility] [place] [address] B12 deficiency Social History Tobacco Use Types [...] Telephone Encounter - Meena Galloway CCMA - 03/17/2021 2:29 PM EDT Vitamin D3 50 mcg Last Prescription Fill Date: 04/28/2020 Number Dispensed and Refills: 90/3 Last Related Office Visit: 12/15/2020 Upcoming Appointment: 03/23/2021 Vitamin B-12 1,000 mcg Last Prescription Fill Date: 04/28/2020 Number Dispensed and Refills: 12/3 Last Related Office Visit: 12/15/2020 Upcoming Appointment: 03/23/2021 Metoprolol succinate XL 25 mg Last Prescription Fill Date: 04/28/2020 Number Dispensed and Refills: 45/3 Last Related Office Visit: 12/15/2020 Upcoming Appointment: 03/23/2021 Lab Results Component Value Date HGB 14.1 02/26/2021 HCT 43.2 02/26/2021 CHLPL 114 12/27/2019 TRIG 102 12/27/2019 HDL 38 12/27/2019 LDLCHOL 56 12/27/2019 ALT 6 10/14/2020 AST 11 10/14/2020 NA 139 02/26/2021 K 4.3 02/26/2021 CL 101 02/26/2021 CREATININE 0.66 (L) 02/26/2021 TSH 1.96 10/14/2020 INR 1.0 07/03/2020 HA1C 5.7 (H) 10/14/2020 documented in this encounter Plan of Treatment Not on file documented as of this encounter Visit Diagnoses Diagnosis B12 deficiency Other B-complex deficiencies documented in this encounter Care Teams Soda Tester Relationship Specialty Start Date End Date Hoang Castellanos APRN [address] [place] [address] PCP - General Family Medicine 03/12/20 documented as of this encounter
--- OUTSIDE RECORDS SUMMARY | 2024-02-22 00:50 | XMS_ITS | Encounter Summary ---
[place] [address] Care Team Providers Care Key Entry Operator Name Role Phone Hoang Castellanos APRN Primary Care Provider Encounter Details Date Type Department Care Team (Late st Contact Info) Description 04/07/2021 12:45 PM EDT Laboratory Appointment Lab [address] [place] [phone] Social History Tobacco Use Types Packs/Day Years [...] Procedure Name Priority Date/Time Associated Diagnosis Comments LYME IGG & IGM ANTIBODY Routine 04/07/2021 1:29 PM EDT LAMOTRIGINE LVL Routine 04/07/2021 1:29 PM EDT HEMOGRAM Routine 04/07/2021 1:29 PM EDT DIFFERENTIAL, AUTOMATED Routine 04/07/2021 1:29 PM EDT TSH Routine 04/07/2021 1:29 PM EDT T4 TOTAL Routine 04/07/2021 1:29 PM EDT VITAMIN B12 Routine 04/07/2021 1:29 PM EDT HEPATIC FUNCTION PANEL Routine 04/07/2021 1:29 PM EDT BASIC METABOLIC PANEL (NON-FASTING) Routine 04/07/2021 1:29 PM EDT documented in this encounter Results * Lamotrigine Lvl (04/07/2021 1:29 PM EDT) [facility] Lamotrigine Lvl 3.5 2.5 - 15.0 mcg/mL [facility] Comment: ADDITIONAL INFORMATION This test was developed and its performance characteristics determined by [facility] in a manner consistent with CLIA requirements. This test has not been cleared or approved by the U.S. Food and Drug Administration. Test Performed by: [facility] [place] [id number] Machine Spreader: Skinny Reyes M.D. Ph.D.; CLIA# [id number] Blood Venous Draw / Unknown 04/07/2021 1:29 PM EDT 04/07/2021 4:27 PM EDT Narrative Resulting Agency Comment Spec In Lab Gurjit Bass MD CHEMISTRY ORDERABLES [facility] [place] [address] * Vitamin B12 (04/07/2021 1:29 PM EDT) [facility] Vitamin B-12 1,018 232 - 1,245 pg/mL [facility] Blood Venous Draw / Unknown 04/07/2021 1:29 PM EDT 04/07/2021 2:08 PM EDT Narrative Resulting Agency Comment Spec In Lab Gurjit Bass MD CHEMISTRY ORDERABLES [facility] [place] [address] * Basic Metabolic Panel (non-fasting) (04/07/2021 1:29 PM EDT) Glucose Lvl 124 65 - 199 mg/dL [facility] Comment:Diabetes: >=200 mg/d L plus symptoms BUN 18 8 - 18 mg/dL [facility] Creatinine 0.81 0.70 - 1.20 mg/dL [facility] Sodium 140 135 - 145 mmol/L [facility] Potassium 3.9 3.5 - 5.0 mmol/L [facility] Comment: Please note: ??Patients with WBC >100,000 may have falsely elevated Potassium levels. ??For accurate Potassium quantification in these patients send serum separator tube (gold top) for subsequent determinations. ??Contact the Clinical Chemistry Laboratory if there are any questions. Chloride 101 98 - 107 mmol/L [facility] CO2 31 22 - 31 mmol/L [facility] Anion Gap 8 5 - 15 mmol/L [facility] Calcium 9.6 8.5 - 10.5 mg/dL [facility] Estimated GFR 79 >=60 mL/min/1. 73 m?? [facility] Comment: This patient? s estimated glomerular filtration rate (eGFR) is between 79 mL/min/1.73 m2 (patients with less muscle mass) and 91 mL/min/1.73 m2 (patients with more muscle mass) [...] and symptoms in addition to eGFR. Blood Venous Draw / Unknown 04/07/2021 1:29 PM EDT 04/07/2021 2:08 PM EDT Narrative Resulting Agency Comment Spec In Lab Gurjit Bass MD CHEMISTRY ORDERABLES Performing Organization Address [facility] Co de Phone Number [facility] [place] [address] * (ABNORMAL) Hepatic Function Panel (04/07/2021 1:29 PM EDT) Total Protein 6.6 6.1 - 8.0 gm/dL [facility] Albumin 4.0 3.2 - 5.2 gm/dL [facility] AST 9 0 - 30 unit/L [facility] ALT 10 0 - 30 unit/L [facility] Alk Phos 125(H) 35 - 105 unit/L [facility] Total Bilirubin 0.2 0.2 - 1.3 mg/dL [facility] Bili, Direct 0.1 0.0 - 0.3 mg/dL [facility] Blood Venous Draw / Unknown 04/07/2021 1:29 PM EDT 04/07/2021 2:08 PM EDT Narrative Resulting Agency Comment Spec In Lab Gurjit Bass MD CHEMISTRY ORDERABLES Performing Organization Address [facility] Co de Phone Number [facility] [place] [address] * T4 Total (04/07/2021 1:29 PM EDT) T4, total 7.4 5.3 - 11.6 mcg/dL [facility] Comment: Reference Interval (mcg/dL): Females: ??First Trimester: 6.3-13.5 ??Second Trimester: 7.1-14.3 ??Third Trimester: 6.9-14.1 Blood Venous Draw / Unknown 04/07/2021 1:29 PM EDT 04/07/2021 2:08 PM EDT Narrative Resulting Agency Comment Spec In Lab Gurjit Bass MD CHEMISTRY ORDERABLES [facility] [place] [address] * TSH (04/07/2021 1:29 PM EDT) Pathologist [facility] TSH 2.27 0.27 - 4.20 mcIU/mL [facility] Comment: Reference Interval (mcIU/mL): Females: ??First Trimester: 0.23-3.88 ??Second Trimester: 0.22-3.90 ??Third Trimester: 0.44-4.66 Blood Venous Draw / Unknown 04/07/2021 1:29 PM EDT 04/07/2021 2:08 PM EDT Narrative Resulting Agency Comment Spec In Lab Gurjit Bass MD CHEMISTRY ORDERABLES Performing Organization Address City/[facility]/ZIP Co de Phone Number [facility] [place] [address] * (ABNORMAL) Differential, Automated (04/07/2021 1:29 PM EDT) [facility] Neutrophils % 71.8 % [facility] Neutr Abs (ANC) 6.73(H) 1.70 - 6.10 x10(3)/mc L [facility] Lymphocytes % 20.4 % [facility] Lymphocytes Abs 1.9 0.9 - 3.2 x10(3)/mc L [facility] Monocytes % 6.2 % [facility] Monocyte Abs 0.6 0.3 - 0.9 x10(3)/mc L [facility] Eosinophils % 0.7 % [facility] Eosinophils Abs 0.1 0.0 - 0.4 x10(3)/mc L [facility] Basophils % 0.6 % [facility] Basophils Abs 0.1 0.0 - 0.1 x10(3)/mc L [facility] Immature Gran % 0.30 % [facility] Comment: Immature granulocytes(IG's)percentage and absolute count will include metamyelocytes, myelocytes, and promyelocytes. Blood smears from CBCs yielding IG's will be scanned manually for concordance. If this scan disagrees with the automated IG or if promyelocytes are noted, a manual differential will be performed. Fartun Gran Abs 0.03 0.00 - 0.04 x10(3)/mc L [facility] Blood Venous Draw / Unknown 04/07/2021 1:29 PM EDT 04/07/2021 2:08 PM EDT Narrative Resulting Agency Comment Spec In Lab Gurjit Bass MD HEMATOLOGY ORDERABLE S Performing Organization Address City/State/[facility] Co de Phone Number [facility] [place] [address] * (ABNORMAL) Hemogram (04/07/2021 1:29 PM EDT) WBC 9.4 4.0 - 9.5 x10(3)/[facility] RBC 4.36 4.00 - 5.21 x10(6)/[facility] Hemoglobin 13.8 11.7 - 15.5 gm/dL [facility] Hematocrit 42.1 35.7 - 45.8 % [facility] MCV 96.6(H) 82.6 - 94.[address] [facility] MCH 31.7 27.1 - 32.[address] [facility] MCHC 32.8 31.7 - 35.0 gm/dL [facility] Platelets 236 145 - 357 x10(3)/[facility] RDWSD 49.1(H) 37.0 - 46.[address] [facility] RDWCV 13.7 11.5 - 14.1 % [facility] MPV 10.1 7.6 - 12.[address] [facility] nRBC % Auto 0.0 % [facility] nRBC Abs Auto 0.000 0.000 - 0.000 x10(3)/mcL [facility] Blood Venous Draw / Unknown 04/07/2021 1:29 PM EDT 04/07/2021 2:08 PM EDT Narrative Resulting Agency Comment Spec In Lab Gurjit Bass MD HEMATOLOGY ORDERABLE S [facility] [place] [address] * Lyme IgG & IgM Antibody (04/07/2021 1:29 PM EDT) Lyme Screening Antibody Neg Neg [facility] Blood Venous Draw / Unknown 04/07/2021 1:29 PM EDT 04/08/2021 7:10 AM EDT Narrative Resulting Agency Comment Spec In Lab Gurjit Bass MD IMMUNOLOGY ORDERABLE S [facility] [place] [address] documented in this encounter Visit Diagnoses Not on filedocumented in this encounter Care Teams Key Entry Operator Relationship Specialty Start Date End Date Hoang Castellanos, APPAREL FASHION DESIGNER [address] [place] [address] PCP - General Family Medicine 03/12/20 documented as of this encounter
--- OUTSIDE RECORDS SUMMARY | 2024-02-22 00:50 | XMS_ITS | Encounter Summary ---
[place] [address] Care Team Providers Care Academic Services Professional Name Role Phone Hoang Castellanos APRN Primary Care Provider Reason for Visit * Diagnostic Test (Routine) - Closed Specialty Diagnoses / Procedures Referred By Contac t Referred To Contact Radiology Diagnoses Coronary artery disease involving [facility]. [place] ira coronary artery of [place] heart without angina pectoris Procedures NM Pharmacologic Stress and Rest Myocardial Perfusion Dustin Haynes, [facility] [place] [address] [place] [address] Referral ID Status Reason Start Date Expiration Date V isits Requested Visits Authorized [id number] Closed Specialty Service Requested 02/16/2021 07/24/2021 1 1 Encounter Details Date Type Department Care Team (Late st Contact Info) Description 04/15/2021 10:32 AM EDT Hospital Encounter [place] [address] Benito Reed MD [facility] [place] [address] Discharge Disposition: Home Social History [...] Sustained Release 24 hrIndications:Coronary artery disease involving st. michael ira coronary artery of [place]. [place] heart without angina pectoris TAKE ONE (1) [...] 09/28/2021 Ventolin HFA 90 mcg/actuation HFA Aerosol InhalerIndications:Roll Line Operator randell obstructive pulmonary disease, unspecified COPD type [...] 11:37 AM EDT Coronary artery disease involving st. michael ira coronary artery of [facility]. [place] ir[place] heart without angina pectoris documented in this encounter Visit Diagnoses Not on filedocumented in this encounter Administered Medications Inactive Administered Medications - up to 3 most recent administrations Medication Order MAR Action Action Date Dose Rate Site regadenoson (Lexiscan) injection 0.4 mg 0.4 mg, Intravenous, ONCE, 1 dose, On Tue04/15/21 at 1200, Radiology Contrast, Routine Given 04/15/2021 11:30 AM EDT 0.4 mg technetium (Tc-99m) sestamibi injection 0-30 mCi 0-30 mCi, Intravenous, 2 TIMES DAILY PRN, 2 doses, Starting on Tue04/15/21 at 1034, Until Tue04/15/21 at 1130, Per Protocol, Radiology Contrast, Routine Given 04/15/2021 11:30 AM EDT 27.5 mCi Given 04/15/2021 10:30 AM EDT 7.9 mCi L eft Arm documented in this encounter Care Teams Academic Services Professional Relationship Specialty Start Date End Date Hoang Castellanos, CORNER TRIMMER OPERATOR [address] [place] [address] PCP - General Family Medicine 03/12/20 documented as of this encounter
--- OUTSIDE RECORDS SUMMARY | 2024-02-22 00:50 | XMS_ITS | Encounter Summary ---
Author Organization [facility] [place] [address] Care Team Providers Care Harpsichord Maker Name Role Phone Hoang Castellanos APRN Primary Care Provider Reason for Visit * Reason Comments Medication Refill Encounter Details Date Type Department Care Team (Late st Contact Info) Description 04/13/2021 Refill Primary Care at [facility] [address] [place] [phone] Hoang Castellanos APRN [address] [facility] [address] [place] [address] Benign essential hypertension Social History Tobacco Use Types Packs/Day Years [...] Telephone Encounter - Meena Galloway CCMA - 04/13/2021 3:52 PM EDT Lisinopril 40 mg Last Prescription Fill Date: 09/01/2020 Number Dispensed and Refills: 90/2 Last Related Office Visit: 03/23/2021 Upcoming Appointment: [...] Diagnosis Benign essential hypertension Essential hypertension, benign documented in this encounter Care Teams Harpsichord Maker Relationship Specialty Start Date End Date Hoang Castellanos, DINING ROOM HELPER [address] [place] [address] PCP - General Family Medicine 03/12/20 documented as of this encounter
--- OUTSIDE RECORDS SUMMARY | 2024-02-22 00:50 | XMS_ITS | Encounter Summary ---
Author Organization [facility] Address [facility] [place] [address] Care Team Providers Care Medical Data Analyst Name Role Phone Hoang Castellanos APRN Primary Care Provider Encounter Details Date Type Department Care Team (Latest Contact Info) Description 04/30/2021 11:20 AM EDT Office Visit Cardiology at [address] [address] Chase Talbot MD [facility] [place] [address] Dizziness; Hyperlipidemia, unspecified hyperlipidemia type; Bilateral leg edema; Obstructive sleep apnea (adult) (pediatric); Smokes cigarettes; 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 Formerly [facility] [place] [address] CARDIOLOGY OUTPATIENT CLINIC VISIT [facility] Jeannie Rico 04/30/2021 Referring Providers: Hoang Castellanos APRN None None N/A CHIEF COMPLAINT: I am here for clearance for my spine surgery CARDIAC-RELEVANT PROBLEM LIST: 1. Pre-diabetes HBA!C 5.7% in september 2020 2. Hypertension 3. Hyperlipidemia 4. Heavy smoker, since age 11, 2 PPD, nearly 100 PY history 5. COPD chronic bronchitis 6. Osteoporosis, spine and back problems 7. Mostly wheel chair and bed bound, although is able to ambulate with a walker. HISTORY OF PRESENT ILLNESS: Jeannie Rico is a 60 y.o. female patient presenting for an outpatient cardiology visit. She is seeing us today for pre-op clearance for neck and cervical spine surgery. She underwent a nuclear stress test on 04/15/2021 which showed: FINDINGS:?? No fixed or reversible perfusion defects are present. Functional analysis: Myocardial function: There is normal wall thickening and wall motion. Left ventricular ejection fraction: 66 % (normal greater than than 50%).?? INCIDENTAL CT FINDINGS: Coronary artery calcifications. Echo Mar SUMMARY:?? 1. The left ventricular chamber size is [...] See remainder of report for additional findings. ?? A Ziopatch in October 2020 showed: Conclusion(s): 1. Predominant rhythm is sinus. 2. Symptoms occurred during sinus rhythm. 3. No sustained arrhythmias. She is not very active due to her spine and back problems. Mostly wheel chair and bed bound, although is able to ambulate with a walker. She has some shortness of breath due to COPD. Denies lightheadedness, syncope, chest pain/pressure/tightness, shortness of breath, weight loss orweight gain, lower extremity swelling. No PND or orthopnea. No symptoms of sleep disordered breathing. Review of systems: Please see the HPI for pertinent positives and negatives. The remainder of the ROS was reviewed and is negative. PAST MEDICAL HISTORY: has a past medical history of Depression, Diabetes mellitus, Hypertension, Obesity, S/P remote gastric bypass in 1995, prior VBG (05/09/2013), Osteoporosis, Suicide attempt (08/02/2019), and Thyroid disease. PAST SURGICAL HISTORY: Past Surgical History: Procedure Laterality Date ??? [...] BIOPSY performed by Ken Sanders MD at [facility] ??? PRO UPPER GI ENDOSCOPY, BIOPSY N/A 09/19/2018 UPPER GASTROINTESTINAL ENDOSCOPY,WITH BIOPSY SINGLE OR MULTIPLE (WRVU 2.49) performed by Tyron Mercado MD at [facility] ??? TONSILLECTOMY ??? UPPER GI ENDOSCOPY, EXAM 12/04/2010 UPPER GI ENDOSCOPY performed by DEE WRIGHT at [facility] SOCIAL HISTORY: reports that she has been smoking cigarettes. She has a 67.50 pack-year smoking history. She has never used smokeless tobacco. She reports current drug use. Drug: Marijuana. She reports that she does not drink alcohol. FAMILY HISTORY: family history includes Anxiety Disorder in her mother; Cervical Cancer in her sister; Depression in her father and mother; Heart Disease in her father, maternal grandfather, maternalgrandmother, mother, and paternal grandmother; Hypertension in her father and mother; Leukemia in an other family member; Lung Cancer in her mother; Multiple Sclerosis in her mother; Obesity in her father; Other (age of onset: 43) in her sister; Type 2 Diabetes in her father and maternal grandfather. MEDICATIONS: Current Outpatient Medications Medication Sig Dispense Refill ??? Advair Diskus 500-50 mcg/dose Disk with Device USE 1 INHALATION TWICE A DAY 60 each 11 ??? lisinopriL (Zestril) 40 mg Tablet TAKE ONE (1) TABLET BY MOUTH EVERY DAY 28 tablet 11 ??? Acidophilus Capsule ??? fluticasone propion-salmeteroL (ADVAIR) 500-50 [...] 30 tablet 1 ??? Miscellaneous Medical Supply [facility] 1 walker on wheels with seat 1 each 0 ??? ibuprofen (Advil;Motrin) 800 mg Tablet Take 1 tablet by mouth every 8 hours as needed for Pain.90 tablet 5 ??? sertraline (ZOLOFT) 100 mg Tablet Take 2 tablets by mouth 2 times daily. ??? multivitamin (THERAGRAN) Tablet Take 1 tablet by mouth daily. ??? lancets 30 gauge Misc [address] [facility]Non-Drug; Combo Route) route daily. 100 each 3 ??? ARIPiprazole (Abilify) 5 mg Tablet Take 5 mg by mouth daily. ??? alum-mag hydroxide-simeth (Maalox) 200-200-20 mg/5 mL Suspension Take 10 mLs by mouth every 6 hours as needed for Indigestion. ??? MARIJUANA ORAL Take by mouth. No current facility-administered medications for this visit. ALLERGIES: Reviewed and updated as appropriate in the medical record: Morphine, Sumatriptan, Oxycodone, Oxycodone-acetaminophen, Chantix [varenicline], Imitrex [sumatriptan succinate], and Prednisone PHYSICAL EXAMINATION: Vitals: Patient Vitals for the past 24 hrs: Pulse BP SpO2 04/30/21 1105 (!) 46 114/60 97 % Constitutional: Normal general appearance, no distress HEENT: PERRL, EOMI; dentition unremarkable Respiratory: CTAB, no wheezes, rales Cardiovascular: Normal S1S2, no murmurs, rubs or gallops Vessels: Normal jugular venous pressure; palpable pulses in all extremities Extremities: No clubbing; no edema Musculoskeletal: No significant kyphosis; no difficulty in ambulating across the room and stepping up to exam table Skin: No cyanosis, no open sores Neurologic: Alert, oriented to person, place and time Psychiatric: Normal mood and affect; no barriers to learning identified TESTING: I have reviewed the pertinent outside records, laboratory data, and imaging studies. 1. LABS: Recent Labs 04/07/21 1329 WBC 9.4 HGB 13.8 HCT 42.1 PLATELET 236 NA 140 K 3.9 BUN 18 CREATININE 0.81 ALT 10 Lab Results Component Value Date CHLPL 114 12/27/2019 HDL 38 12/27/2019 CHOLHDL 3.0 12/27/2019 TRIG 102 12/27/2019 LDLCHOL 56 12/27/2019 ASSESSMENT/PLAN: Jeannie Rico is a 60 y.o. 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 Preoperative risk stratification. She has a low [...] risk of hernan procedural myocardial adverse events. Revised Cardiac Risk Index: 1. Criteria 1. High Risk Surgery: 1 Point 2. Coronary Artery Disease (Including +stress test): 1 Point 3. Congestive Heart Failure: 1 Point 4. Cerebrovascular Disease: 1 Point 5. Diabetes Mellitus on Insulin: 1 Point 6. Serum Creatinine >2 mg/dl: 1 Point 2. Interpretation 1. Scoring 1. Points 0: Class I Very Low (0.4% complications) 2. Points 1: Class II Low (0.9% complications) 3. Points 2: Class III Moderate (6.6% complications) 4. Points 3: Class IV High (>11% complications) 2. Complications predicted by above scoring 1. Myocardial Infarction 2. Pulmonary Embolism 3. Ventricular Fibrillation 4. Cardiac Arrest 5. Complete Heart Block 3. References 1. Gregor (1998) Circulation 100:1043-9 2. Hypertension Well controlled. No changes to her regimen. 3. Sinus bradycardia. She is on metoprolol. Continue for now. May consider a dose reduction in the future. If she becomesbradycardic post spine surgery, may hold or discontinue. Thank you for the opportunity to take care of Jeannie Rico. Sincerely, Dr. 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
--- OUTSIDE RECORDS SUMMARY | 2024-02-22 00:50 | XMS_ITS | Encounter Summary ---
Author Organization [facility] Address [facility] [place] [address] Care Team Providers Care Investment Counselor Name Role Phone Hoang Castellanos APRN Primary Care Provider Encounter Details Date Type Department Care Team (Late st Contact Info) Description 03/27/2021 [place] [address] Altagracia Baltazar MD [facility] [place] [address] Social History Tobacco Use Types Packs/Day Years [...] Telephone Encounter - Bárbara Moreau RN - 03/27/2021 1:49 PM EDT Called patient to let her know that per Dr. Baltazar, Jeannie has a very tight cervical spine - I willbe seeing her on the but I'd like to get the ball rolling for her to see the spine center sooner rather than later. Can you contact her and let her know I'm going to go ahead and place that referral? I am also sending her a message about her cervical MRI. Patient states that she saw Dr. Bass and he has referred her to neurosurgery but she will be referred wherever it is felt best that she go. Patient agreeable to plans and will wait for secretaries to call to get her scheduled accordingly. documented in this encounter Plan of Treatment Not on file documented as of this encounter Visit Diagnoses Not on filedocumented in this encounter Care Teams Investment Counselor Relationship Specialty Start Date End Date Hoang Castellanos, SANDBLASTING SUPERVISOR [address] [place] [address] PCP - General Family Medicine 03/12/20 documented as of this encounter
--- OUTSIDE RECORDS SUMMARY | 2024-02-22 00:50 | XMS_ITS | Encounter Summary ---
Author Organization [facility] [place] [address] Care Team Providers Care Commodities Broker Name Role Phone Hoang Castellanos APRN Primary Care Provider Reason for Visit * Reason Onset Date Comments Pre-op Exam 05/13/2021 Encounter Details Date Type Department Care Team (Late st Contact Info) Description 05/13/2021 Telephone Primary Care at [facility] [address] [facility] [place] [address] Hoang Castellanos APRN [address] [place] [address] Pre-op Exam Social History Tobacco Use Types Packs/Day Years [...] encounter Miscellaneous Notes * Telephone Encounter - Gautam Davidson - 05/14/2021 7:58 AM EDT Thank you. I will let her know. * Telephone Encounter - Hoang Castellanos, ADJUNCT INSTRUCTOR OF WOMEN'S STUDIES - 05/13/2021 1:04 PM EDT hTomas! I just took a call from Angela Espinoza who is the caseworker protective services for Jeannie Bates called and has a few questions regarding her care. Please call her at [phone]. I received the above message from Amanda Martinez on 05/11 at 1503. I called the above number and had to leave a message on 05/13 at 1305. I called the patient who picked up. Patient called Neurosurgery yesterday and discussed with the nurse about her Cardiology preop appt-received cardiac clearance. Patient requesting preop PE with me-but advised her that without a surgery date then the preop apptmay need to be moved. She verbalized understanding-will schedule in 2 weeks. Patient inquiring flu shot, booster dose of pfizer-informed of below. Thank you for your message. We are currently able to schedule the 3rd dose Pfizer booster vaccine to those who qualify. Below is the following criteria for 3rd dose Pfizer booster. The current CDC criteria is the following: People aged 50-64 years with underlying medical conditions should receive a booster dose of Pfizer vaccine at least 6 months after completion of their Pfizer vaccine primary series (formal recommendation for a booster) * Cancer ??? Chronic Kidney Disease ??? Chronic Lung Disease (asthma, COPD, scarred lung tissue, cystic fibrosis, pulmonary hypertension) ??? Dementia or other Neurologic disease ??? Diabetes ??? Down Syndrome ??? Heart Conditions (heart disease, coronary artery disease, hypertension) ??? HIV ??? Liver Disease ? ? Overweight & Obesity ??? or recent ??? Sickle Cell Disease or Thalassemia ??? Smoker, current or former ??? Solid Organ or Blood Stem Cell Transplant ??? Stroke or cerebral vascular disease ??? Substance Use Disorders ??? Weakened immune system ??? My physician recommended the booster 4. People aged 18-64 years who are at increased risk for COVID-19 exposure and transmission becauseof occupational or institutional setting may receive a booster dose of Pfizer vaccine at least 6 months after completion of their Pfizer vaccine primary series, based on their individual benefits and risks (permissive recommendation based on an individual???s own assessment of their risks and benefits) If you can attest that you are eligible, please call [phone] to schedule your appointment. You are required to bring your proof of vaccine card * Telephone Encounter - Gautam Davidson - 05/13/2021 9:57 AM EDT Jeannie needs a preop and would really like to follow up with you on it. She said surgery is either the first or second week of May but wasnt sure on the date. She is having it at [facility] with neurology. Please advise documented in this encounter Plan of Treatment Not on file documented as of this encounter Visit Diagnoses Not on filedocumented in this encounter Care Teams Commodities Broker Relationship Specialty Start Date End Date Hoang Castellanos APRN [address] [place] [address] PCP - General Family Medicine 03/12/20 documented as of this encounter
--- OUTSIDE RECORDS SUMMARY | 2024-02-22 00:50 | XMS_ITS | Encounter Summary ---
[place] [address] Care Team Providers Care Truck Hopper Name Role Phone Hoang Castellanos APRN Primary Care Provider Encounter Details Date Type Department Care Team (Latest Contact Info) Description 02/26/2021 12:45 PM EDT Ancillary Procedure Radiology XRay at the [facility] at [facility] [address] [place] [address] Jose A Mejia MD [address] [place] [address] Chronic pain of right ankle Social History [...] Name Priority Date/Time Associated Diagnosis Comments XR ANKLE MIN 3 VIEWS RIGHT Routine 02/26/2021 11:28 AM EDT Chronic pain of right ankle documented in this encounter Results * XR Ankle Min 3 views Right (Generic) (02/26/2021 11:28 AM EDT) Anatomical Region Laterality Modality Ankle Right Digital Radiogra phy Impressions 02/26/2021 12:58 PM EDT Healing fracture of the distal fibula shaft. Thank you for letting us participate in the care of this patient. ??If you are a health care provider and have any questions regarding this report, please contact the number below. ??For patients who have questions please contact the health overnight caregiver that requested your imaging first. ? Electronically signed by: Rinku Wilkins MD, [facility] ([phone]), at 02/26/2021 12:58 PM Narrative 02/26/2021 12:58 PM EDT EXAMINATION: XR ANKLE MIN 3 VIEWS RIGHT (GENERIC) CLINICAL HISTORY: right ankle pain pls eval TECHNIQUE: 3 views RIGHT ankle COMPARISON: Previous examination 07/03/2020 FINDINGS: There is a healing oblique fracture of the distal fibula shaft. There is no malalignment at the ankle joint. There is new bone formation. There is no significant displacement. Procedure Note Rinku Wilkins MD - 02/26/2021 EXAMINATION: XR ANKLE MIN 3 VIEWS RIGHT (GENERIC) CLINICAL HISTORY: right ankle pain pls eval TECHNIQUE: 3 views RIGHT ankle COMPARISON: Previous examination 07/03/2020 FINDINGS: There is a healing oblique fracture of the distal fibula shaft. There isno malalignment at the ankle joint. There is new bone formation. There isno significant displacement. IMPRESSION Healing fracture of the distal fibula shaft. Thank you for letting us participate in the care of this patient. If youare a health care provider and have any questions regarding this report,please contact the number below. For patients who have questions please contactthe health overnight caregiver that requested your imaging first. Jose A Mejia MD IMG DX ORDERABLES documented in this encounter Visit Diagnoses Diagnosis Chronic pain of right ankle documented in this encounter Care Teams Truck Hopper Relationship Specialty Start Date End Date Hoang Castellanos, CABLE TOOL DRILLER [address] [place] [address] PCP - General Family Medicine 03/12/20 documented as of this encounter
--- OUTSIDE RECORDS SUMMARY | 2024-02-22 00:50 | XMS_ITS | Encounter Summary ---
Author Organization [facility] [place] [address] Care Team Providers Care Bundler Seasonal Greenery Name Role Phone Hoang Castellanos APRN Primary Care Provider Encounter Details Date Type Department Care Team (Late st Contact Info) Description 04/08/2021 Telephone [place] [address] Campos Puente MD [facility] [place] [address] Social History Tobacco Use Types Packs/Day Years [...] Telephone Encounter - Campos Puente MD - 04/08/2021 2:18 PM EDT I telephoned Kyra Mittal, the patient's sister and DPOA. 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 We reviewed the risks and we discussed the fact that she would need cardiac clearance before consideration of surgery. Shewould like to discuss things with the patient's other siblings and we will have another telephone visit once the patient's cardiac evaluation is been completed documented in this encounter Plan of Treatment Not on file documented as of this encounter Visit Diagnoses Not on filedocumented in this encounter Care Teams Bundler Seasonal Greenery Relationship Specialty Start Date End Date Hoang Castellanos, SAM [address] [place] [address] PCP - General Family Medicine 03/12/20 documented as of this encounter
--- OUTSIDE RECORDS SUMMARY | 2024-02-22 00:50 | XMS_ITS | Encounter Summary ---
Author Organization [facility] [place] [address] Care Team Providers Care Automotive Parts Specialist Name Role Phone Hoang Castellanos APRN Primary Care Provider Reason for Referral * Diagnostic Test (Routine) - Closed Specialty Diagnoses / Procedures Referred By Contac t Referred To Contact Radiology Diagnoses Myelopathy Procedures MRI Thoracic Spine wo Contrast (Generic) Gurjit Bass MD [facility] [place] [address] [facility] Rad Mri [address] [place] [address] Referral ID Status Reason Start Date Expiration Date V isits Requested Visits Authorized [id number] Closed Specialty Service Requested 03/26/2021 09/23/2022 1 1 Reason for Visit * Consultation (Routine) - Closed Specialty Diagnoses / Procedures Referred By Contac t Referred To Contact Neurology Diagnoses Intracranial hypertension Hoang Castellanos APRN [address] [facility] [place] [address] Gurjit Bass MD [facility] [place] [address] Referral ID Status Reason Start Date Expiration Date V isits Requested Visits Authorized [id number] Closed Specialty Service Requested 02/09/2021 02/09/2022 12 12 Encounter Details Date Type Department Care Team (Late st Contact Info) Description 03/26/2021 1:00 PM EDT Office [place] [address] Gurjit Bass MD [facility] [place] [address] Bipolar affective disorder, remission status unspecified; Seizures; Myelopathy Social History Tobacco Use Types Packs/Day [...] Sign Reading Time Taken Comments Blood Pressure 149/75 03/26/2021 12:52 PM EDT Pulse 53 03/26/2021 12:52 PM EDT Temperature - - Respiratory Rate - - Oxygen Saturation - - Inhaled Oxygen Concentration - - Weight - - Height - - Body Mass Index - - documented in this encounter Patient Instructions * Patient Instructions* Gurjit Bass MD - 03/26/2021 1:00 PM EDT I think your walking and balance are bad because pinched nerves in your neck are preventing messages from your legs from getting to your brain and from your brain to your legs The problem is bad enough that I think you need surgery I am Contacting neurosurgery and they should contact you and your shoe parts caser to set up a clinic appointment. You will see Dr. Puente. He will discuss with you how exactly to proceed with the surgery. This is urgent but not an emergency. Something will happen in the next few weeks In the meantime please stop smoking. Please keep your medications unchanged for now. I will plan to see you back in 3 months or sooner if any urgent problems arise. Gurjit Bass MD Professor of neurology, [facility] Department of Neurology, [place] [address], [address] Pager: [phone], #[phone] Email: [email or web address] documented in this encounter Progress Notes * Gurjit Bass MD - 03/26/2021 1:00 PM EDT Neurology Clinic Note Chief complaint: Gait ataxia History: The patient is 60 years old and right handed, and was referred for neurological consultation by Hoang Castellanos to address the issue of gait ataxia. The patient was recently seen in neurology by telehealth by Dr. Willis and Dr. Baltazar, and work-up was initiated, but the patient, who has rather eccentric thought processes, choose to re-connect with me, as I had followed her from [phone]. Has a complex medical and neurological history [...] Mg in orthopedics did not recommend surgery. Interval History: The patient re-presented to neurology in 2020. [...] but the major problem was in legs. He describes walking stiffly and awkwardly and frequently [...] chemistry and liver profile, thyroid function tests, K12hprqd, TSH level, CK and hemoglobin A1c and acetylcholine receptor antibody were all normal or negative. Dr Baltazar and requested and obtained MRI scan of the cervical spine which shows substantial progression of disease from 2009, with now varinder cord compression including cord signal change at C5-6, with significant canal stenosis from C5-C7. There is also multilevel foraminal disease. Past medical history: Patient Active Problem List [...] Hypothyroidism, acquired ??? Borderline personality disorder Per [facility] Psychiatry ??? 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 Review of systems: 1. Eating: Normal 2. [...] 30 tablet 1 ??? Miscellaneous Medical Supply [facility] 1 walker on wheels with seat 1 [...] ??? Prednisone Other reaction(s): aggitation Physical Exam: VS: BP 149/75 Pulse 53 LMP (LMP [...] suggestions: This is a rather disturbing situation. 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 Given the tightness of the cervical canal with cord signal change, and her deteriorated neurological exam, including urge incontinence, there is no doubt in my mind that surgical decompression is rather urgently indicated. I do not think there is any other major cause of weakness and gait ataxia. I discussed the case with Dr. Puente who has kindly agreed to see the patient soon in clinic, and we will proceed from there. I have spoken with the patient, and the shoe parts caser who accompanied her, to discuss what needs to be done. I have strongly advised her to stop smoking immediately Thank you for this consultation. I will see the patient back in 3 months or sooner if necessary Gurjit Bass MD [place] [address] Pager: [phone], #[phone] Email: CC: Hoang Baltazar MD documented in this encounter Plan of Treatment Not on file documented as of this encounter Results * MRI Thoracic Spine [...] who have questions please contact the health healthcare corporate account director that requested your imaging first. ? Electronically signed by: ANGUS Claudio [facility] ([phone]), at 06/24/2021 3:53 PM Narrative 06/24/2021 3:53 PM EST EXAMINATION: MRI [...] patients who have questions please contactthe health healthcare corporate account director that requested your imaging first. Electronically signed by: Freddy Christian [facility]([phone]), at 06/24/2021 3:53 PM Gurjit Bass MD IMG MRI ORDERABLES documented in this encounter Visit Diagnoses Diagnosis Bipolar affective disorder, remission status unspecified Seizures Other convulsions Myelopathy Unspecified disease of spinal cord Myelopathy Unspecified disease of spinal cord documented in this encounter Care Teams Automotive Parts Specialist Relationship Specialty Start Date End Date Hoang Castellanos, PROCESSING TALC AND BORATE SUPERVISOR [address] [place] [address] PCP - General Family Medicine 03/12/20 documented as of this encounter
--- OUTSIDE RECORDS SUMMARY | 2024-02-22 00:50 | XMS_ITS | Encounter Summary ---
Author Organization [facility] Address [facility] [place] [address] Care Team Providers Care Supply Chain Vice President Name Role Phone Mark Holguin APRN Primary Care Provider Reason for Referral * Consultation (Routine) - Closed Specialty Diagnoses / Procedures Referred By Vanita dimas Referred To Contact Neurology Diagnoses Intracranial hypertension Mark Holguin APRN [address] [facility] [address] Gurjit Bass MD [facility] [place] [address] Referral ID Status Reason Start Date Expiration Date V isits Requested Visits Authorized [id number] Closed Specialty Service Requested 02/09/2021 02/09/2022 12 12 Reason for Visit * Reason Onset Date Comments Referral 02/09/2021 Encounter Details Date Type Department Care Team (Late Contact Info) Description 02/09/2021 Telephone Primary Care at [facility] [address] [place] [address] Minerva Calderón RN Referral Social History Tobacco Use Types Packs/Day Years [...] encounter Miscellaneous Notes * Telephone Encounter - Minerva Calderón RN - 02/09/2021 1:25 PM EDT Called patient, advised of the below per PCP. Patient verbalized understanding and is grateful for the referral. She states that in the meantime, she had reached out to her [facility] case repairer Alondrashania left a VM on the PCP nurse's line to follow up on the referral request. Patient states she is trying to work on not becoming frustrated so easily. Jeannie asked me to reach out to Angela to inform her of the update that the referral was placed. Left VM for Angela at [facility], advised the requested referral has been placed by PCP after clarification. * Addendum Note - Mark Holguin APRN - 02/09/2021 12:15 PM EDTAddended by: MARK HOLGUIN on: 02/09/2021 12:15 PM Modules accepted: Orders * Telephone Encounter - Mark Holguin APRN - 02/09/2021 12:15 PM EDT This was not stated in Dr. Baltazar's notes. New referral to alternative Neurologist-Dr. Bass, completed. * Telephone Encounter - Minerva Calderón RN - 02/09/2021 11:53 AM EDT Called patient, advised of the below per PCP. Patient verbalized frustration, states Dr. 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 Current workup is for bilat LE weakness. Patient is awaiting MRI and EMG appointments, will have labs at that time, but insists that she wants referral to a neurologist who specializes in intracranial HTN like Dr. Bass as she feels this is the root cause of her imbalance and dizziness. She states she is considering switching to a different PCP. Routing to PCP. * Telephone Encounter - Mark Holguin APRN - 02/09/2021 11:14 AM EDT Patient needs to complete labs and MRI as recommended by Neurology on 02/04, then schedule f/u with them. Previously diagnosed by Dr. Bass, but Dr. Baltazar is equipped to manage intracranial hypertension, pending her additional work up. * Telephone Encounter - Minerva Calderón RN - 02/09/2021 8:55 AM EDT Triage call: History of falls, about 6 in past month. History of intracranial HTN. Fell Wednesday 02/07 around 3 AM. Had gone to bathroom, leaned forward, felt unsteady and fell forward. Denies dizziness with this episode but has had intermittent dizziness. Bruised all over body, hit forehead. Deniesvision changes, new headache, N/V. Not on anticoagulant (ASA 81 mg only). Did not get evaluated after fall and declines appt now. Patient requests referral to neurology for intracranial HTN. Is under the care of neurology, last THV 02/04/21 for weakness of bilat LE and being worked up with labs and MRI. Pt is concerned that intracranial HTN is causing balance issues and dizziness, states has seen ?Dr. Gomes at Neuro in the past for Intracranial HTN. Routing to PCP for review. documented in this encounter Plan of Treatment Scheduled Referrals Name Type Priority Associated Diagnoses Orde r Schedule Referral to Neurology Outpatient Referral Routine Intracranial hypertension Ordered: 02/09/2021 documented as of this encounter Visit Diagnoses Diagnosis Intracranial hypertension Benign intracranial hypertension documented in this encounter Care Teams Supply Chain Vice President Relationship Specialty Start Date End Date Mark Holguin, CHEMISTRY TECHNOLOGIST [address] [place] [address] PCP - General Family Medicine 03/12/20 documented as of this encounter
--- OUTSIDE RECORDS SUMMARY | 2024-02-22 00:50 | XMS_ITS | Encounter Summary ---
[place] [address] Care Team Providers Care Revenue Settlements Administrator Name Role Phone Hoang Castellanos APRN Primary Care Provider Encounter Details Date Type Department Care Team (Late st Contact Info) Description 04/07/2021 Orders [place] [address] Gurjit Bass MD [facility] [place] [address] Seizures; Myelopathy; Bipolar affective disorder, remission status unspecified Social [...] documented as of this encounter Results * (ABNORMAL) Hemogram (2021 10:54 AM EDT) WBC 7.7 4.0 - 9.5 x10(3)/mcL [facility] RBC 4.64 4.00 - 5.21 x10(6)/mcL [...] MD HEMATOLOGY ORDERABLE S Performing Organization Address City/[facility]/ZIP Co de Phone Number [facility] [address] [place] [address] * Lyme IgG & IgM Antibody (2021 10:54 AM EDT) Pathologist [facility] Lyme Screening Antibody Neg Neg [facility] Blood 2021 10:5 4 AM EDT 05/28/2021 6:53 AM EDT Narrative Resulting Agency Comment Spec In Lab Gurjit Bass MD IMMUNOLOGY ORDERABLE S [facility] [place] [address] * TSH (2021 10:54 AM EDT) Pathologist [facility] TSH 2.40 0.27 - 4.20 mcIU/mL [facility] Comment: Reference Interval (mcIU/mL): Females: ??First Trimester: 0.23-3.88 ??Second Trimester: 0.22-3.90 ??Third Trimester: 0.44-4.66 Blood 2021 10:5 4 AM EDT 2021 11:55 AM EDT Narrative Resulting Agency Comment Spec In Lab Gurjit Bass MD CHEMISTRY ORDERABLES Performing Organization Address [facility] de Phone Number [facility] [address] [place] [address] * T4 Total (2021 10:54 AM EDT) T4, total 8.2 5.3 - 11.6 mcg/dL [facility] Comment: Reference Interval (mcg/dL): Females: ??First Trimester: 6.3-13.5 ??Second Trimester: 7.1-14.3 ??Third Trimester: 6.9-14.1 Blood 2021 10:5 4 AM EDT 2021 11:55 AM EDT Narrative Resulting Agency Comment Spec In Lab Gurjit Bass MD CHEMISTRY ORDERABLES Performing Organization Address [facility] de Phone Number [facility] [address] [place] [address] * (ABNORMAL) Comprehensive metabolic panel (non-fasting) (2021 10:54 AM EDT) Pathologist [facility] [place] Glucose Lvl 90 65 - 199 mg/dL [facility] Comment:Diabetes: >=200 mg/d L plus symptoms [...] In Lab Gurjit Bass MD CHEMISTRY ORDERABLES [facility] [address] [place] [address] * Vitamin B12 (2021 10:54 AM EDT) Vitamin B-12 1,017 232 - 1,245 pg/mL [facility] Blood 2021 10:5 4 AM EDT 2021 4:48 PM EDT Narrative Resulting Agency Comment Spec In Lab Gurjit Bass MD CHEMISTRY ORDERABLES Performing Organization Address City/[facility]/ZIP Co de Phone Number [facility] [place] [address] * Lamotrigine Lvl (2021 10:54 AM EDT) Lamotrigine Lvl 3.7 2.5 - 15.0 mcg/mL [facility] Comment: ADDITIONAL INFORMATION This test was developed and its performance characteristics determined by [facility] in a manner consistent with CLIA requirements. This test has not been cleared or approved by the U.S. Food and Drug Administration. Test Performed by: [facility] [address] [place] [address] Sewing Line Baler: Skinny Reyes M.D. Ph.D.; CLIA# [id number] Blood 2021 10:5 4 AM EDT 2021 4:54 PM EDT Narrative Resulting Agency Comment Spec In Lab Gurjit Bass MD CHEMISTRY ORDERABLES Performing Organization Address City/[facility] Co de Phone Number [facility] [address] [place] [address] documented in this encounter Visit Diagnoses Diagnosis Seizures Other convulsions Myelopathy Unspecified disease of spinal cord Bipolar affective disorder, remission status unspecified documented in this encounter Care Teams Revenue Settlements Administrator Relationship Specialty Start Date End Date Hoang Castellanos, AGILE DEVELOPER [address] [place] [address] PCP - General Family Medicine 03/12/20 documented as of this encounter
--- OUTSIDE RECORDS SUMMARY | 2024-02-22 00:50 | XMS_ITS | Encounter Summary ---
Author Organization [facility] Address [facility] [place] [address] Care Team Providers Care Belt Back Operator Name Role Phone Hoang Castellanos APRN Primary Care Provider Reason for Visit * Diagnostic Test (Routine) - Closed Specialty Diagnoses / Procedures Referred By Contdavide t Referred To Contact Radiology Diagnoses Age-related osteoporosis without current pathological fracture Procedures DXA Central Spine, Hip, and/or Whole Body (Generic) Hoang Castellanos APRN [address] [facility] [place] [address] [facility] X[facility] [address] [place] [phone] Referral ID Status Reason Start Date Expiration Date V isits Requested Visits Authorized [id number] Closed Specialty Service Requested 03/23/2021 09/21/2022 1 1 Encounter Details Date Type Department Care Team (Latest Contact Info) Description 05/26/2021 9:30 AM EDT Ancillary Procedure Radiology D[facility] at [address] [address] Hoang Castellanos APRN [address] [place] [address] Age-related osteoporosis without current pathological fracture Social History Tobacco Use Types Packs/Day Years [...] Procedure Name Priority Date/Time Associated Diagnosis Comments DXA CENTRAL SPINE, HIP, AND/OR WHOLE BODY (GENERIC) Routine 05/26/2021 10:04 AM EDT Age-related osteoporosis without current pathological fracture documented in this encounter Results * DXA Central Spine, Hip, and/or Whole [...] BMD measurements and plots are available in Evver under the imaging tab. Paper copies will be sent to providers without Evver access. If you have received this report without the data sheet and do not have access to Evver, please contact [facility] at [phone]. Thank you for letting us participate in the care of this patient. ??If you are a health care provider and have any questions regarding this report, please contact the number below. ??For patients who have questions please contact the health family day care provider that requested your imaging first. ? Electronically signed by: Hong Catherine MD, [facility] ([phone]), at 05/26/2021 1:03 PM Narrative 05/26/2021 1:03 [...] BMD measurements and plots are available in Evverunder the imaging tab. Paper copies will be sent to providers without Evver access.If you have received this report without the data sheet and do not haveaccess to E-, please contact [facility] at [phone]. Thank you for letting us participate in the care of this patient. If youare a health care provider and have any questions regarding this report,please contact the number below. For patients who have questions please contactthe health family day care provider that requested your imaging first. Electronically signed by: Hong Catherine MD, [facility]([phone]), at 05/26/2021 1:03 PM Hoang Castellanos APRN IMG DEXA ORDERABLES documented in this encounter Visit Diagnoses Diagnosis Age-related osteoporosis without current pathological fracture Senile osteoporosis documented in this encounter Care Teams Belt Back Operator Relationship Specialty Start Date End Date Hoang Castellanos, SAM [address] [place] [address] PCP - General Family Medicine 03/12/20 documented as of this encounter
--- OUTSIDE RECORDS SUMMARY | 2024-02-22 00:51 | XMS_ITS | Encounter Summary ---
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 Procedures Echocardiogram Transthoracic([facility]) [place]on Haynes [facility] [place] [address] [facility] [place] [address] Referral ID Status Reason Start Date Expiration Date V isits Requested Visits Authorized [id number] Closed Specialty Service Requested 10/01/2020 10/01/2021 1 1 Reason for Visit * Diagnostic Test (Routine) - Closed Specialty Diagnoses / Procedures Referred By Contac t Referred To Contact Cardiology Diagnoses 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 Procedures Echocardiogram Transthoracic([facility]) [place] Haynes [facility] [place] [address] [facility] [place] [address] Referral ID Status Reason Start Date Expiration Date V isits Requested Visits Authorized [id number] Closed Specialty Service Requested 10/01/2020 10/01/2021 1 1 Encounter Details Date Type Department Care Team (Late st Contact Info) Description 01/07/2021 12:08 PM EDT - 01/07/2021 11:59 PM EDT Hospital Encounter Non[place] [address] Benito Reed MD [facility] [address] 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 01/27/2020 04/14/2023 Acidophilus Capsule TAKE TWO (2) CAPSULES BY [...] 09/28/2021 Ventolin HFA 90 mcg/actuation HFA Aerosol InhalerIndications:Ladle Repairman randell obstructive pulmonary disease, unspecified COPD type [...] Chest pain. 30 tablet 1 06/02/2020 12/01/2021 fluticasone propion-salmeteroL (Advair Diskus) 500-50 mcg/dose Disk with Device Inhale 1 puff into the lungs 2 times daily. 60 each 05/09/2020 02/03/2021 aspirin EC 81 mg Tablet, Delayed Release (E.C.) Take 1 tablet by mouth daily. 90 tablet 3 04/28/2020 02/26/2021 cholecalciferol, Vitamin D3, (Vitamin D-3) 50 mcg [...] for 30 min. 52 tablet 04/01/2020 03/23/2021 isosorbide mononitrate CR (Imdur) 30 mg Tablet Sustained Release 24 hr Take 1 tablet by mouth daily. 90 tablet 3 03/21/2020 02/17/2021 ibuprofen (Advil;Motrin) 800 mg TabletIndications:Chron ic right-sided [...] by mouth daily. Taking half 12/12/2019 12/11/2021 lactobacillus rhamnosus, GG, (CULTURELLE) 10 billion cell Capsule Take 2 capsules by mouth 2 times daily. 02/26/2021 alum-mag hydroxide-simeth (Maalox) 200-200-20 mg/5 mL Suspension Take 10 mLs by mouth every 6 hours as needed for Indigestion. 11/26/2021 sertraline (Zoloft) 50 mg Tablet Take 1 tablet by mouth daily. 90 tablet 3 08/20/2019 02/03/2021 tiotropium bromide (SPIRIVA RESPIMAT) 2.5 mcg/actuation MistIndications:Asthma with acute exacerbation, unspecified asthma severity, unspecified whether persistent Inhale 2 puffs into the lungs nightly. 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 (Age): 1960(60y) Med Rec#: ? [id number] ?Sex: ?F ? Site Loc: ? [facility] ?Ht / Wt: ??163(cm)/99(kg) Pt. Loc: ?Echo Lab ?BSA: ?2.03 Study Date: ?? 01/07/2021 ?Pt. Type: Outpatient Tape: ? Referring: LAURA Reading: Freddy Mejias ([id number]) Range Technician: [facility] Aide: FriendZackary Diagnosis: *Atherosclerotic heart disease of tyonek coronary artery without angina pectoris (I25.10) BP: ? 147/65 SUMMARY: 1. The left ventricular chamber size is normal. Left ventricular wall thickness is normal. There are no left ventricular segmental wall motion abnormalities. There is normal global left ventricular systolic function. ??Ejection fraction is estimated to be 65%. 2. Right ventricular chamber size, wall thickness, and systolic function are within normal limits. 3. There is no hemodynamically significant valve disease. 4. See remainder of report for additional findings. Findings ? : Left Ventricle: ? The left ventricular chamber size is normal. ?Left ventricular wall thickness is normal. ?There is no evidence of LVOT obstruction. ?No ventricular septal defect is visualized. ?There is normal global left ventricular systolic function. ??Ejection fraction is estimated to be 65%. ?There are no left ventricular segmental wall motion abnormalities. ?Doppler assessment is consistent with normal left sided filling pressure. Left Atrium: ? The left atrium is normal in size. ?No atrial septal defect is visualized. Right Ventricle: ? Right ventricular chamber size, wall thickness, and systolic function are within normal limits. ?Pulmonary artery hypertension could not be assessed due to inadequate tricuspid regurgitation jet. Right Atrium: ? The right atrium appears normal. Aortic Valve: ? The aortic valve is tricuspid. ?Systolic excursion of the aortic valve is normal. ?There is no evidence of aortic valve stenosis. ?There is no evidence of aortic regurgitation. Mitral Valve: ? The mitral valve leaflets are mildly thickened. ?There is trace mitral regurgitation present. Tricuspid Valve: ? The tricuspid valve leaflets are morphologically normal. ?There is trace tricuspid regurgitation present. Pulmonic Valve: ? The pulmonic valve appears normal in structure and function. Pericardium: ? The pericardium appears normal and there is no evidence of a pericardial effusion. Aorta: ? The aortic root is normal in size. ?The ascending aorta is normal in size. Pulmonary Artery: ? The main pulmonary artery appears normal. Venous: ? The inferior vena cava appears normal in size. ?There is a greater than 50% respiratory change in the inferior vena cava dimension. Misc: ? Two-dimensional echo, spectral Doppler and color Doppler performed. ?Optison contrast (one 3 ml vial) was used to enhance endocardial definition. Excess contrast was discarded. Chambers 2D ?Value ?Units (Range) ? IVSd (2D) ? 0.98 ? cm ? LVPWd (2D) ?0.74 ? cm ? IVS:LVPW ratio (2D) 1.33 ? ratio ? RWT (2D) ?0.37 ? ratio ? RWT PW (2D) ? 0.32 ? ratio ? LVIDd (2D) ?4.64 ? cm ? LVIDs (2D) ?3.26 ? cm ? LVIDd (2D) index ?2.28 ? cm/m2 ? LVIDs (2D) index ?1.6 ?cm/m2 ? LV FS (2D) ?29.72 ?% ? EF Teichholz (2D) ?? 56.83 ?% ? Ao root diameter (2D3.04 ? cm (2.1 - 3.6) ? Ascending Ao ?3.24 ? cm (2 - 3.5) ? Volumes/Mass ?Value ?Units (Range) ? LA Area 4 CH ?21.4 ? cm2 (<21) ? LA ESV BP (A/L) inde34.26 ?ml/m2 ? LV ESV SP 4CH (MOD) 30.84 ?ml ? LV ESV SP 2CH (MOD) 23.61 ?ml ? LV EDV BP ? 122.22 ? ml ? LV ESV BP ? 26.84 ?ml ? LV EDV BP index ? 60.09 ?ml/m2 ? LV ESV BP index ? 13.2 ? ml/m2 ? BP EF (MOD) ? 78.04 ?% ? LV mass (2D) ?131.04 ? g ? LV mass (2D) index ??64.42 ?g/m2 ? Diastolic/Systolic Function ?Value ?Units (Range) ? MV E-wave Vmax ?0.56 ? m/sec ? MV deceleration dgxe644.41 ? msec ? MV A-wave Vmax ?0.81 ? m/sec ? MV E:A ratio ?0.7 ?ratio ? LV septal e' Vmax ?? 0.06 ? m/sec ? LV lateral e' Vmax ??0.09 ? m/sec ? LV average e' Vmax ??0.08 ? m/sec ? LV E:e' septal ratio9.35 ? ratio ? LV E:e' lateral rati6.23 ? ratio ? LV average E:e' rati7.48 ? ratio ? Aortic Valve ?Value ?Units (Range) ? LVOT diameter ? 2 ?cm ? LVOT Vmax ? 1.29 ? m/sec ? LVOT VTI ?28.81 ?cm ? LVOT peak gradient ??6.64 ? mmHg ? LVOT mean gradient ??3.24 ? mmHg ? SV LVOT ? 90.7 ? ml ? SV LVOT Index ? 44.7 ? ml/m2 ? CO LVOT ? 4.97 ? l/min ? Cardiac index ? 2.44 ? l/min/m2 ? Wall Motion: Segment Name ?Rest ? Base-Anteroseptal ?? Normal ? Base-Anterior ? Normal ? Base-Anterolateral ??Normal ? Base-Posterolateral Normal ? Base-Inferior ? Normal ? Base-Inferoseptal ?? Normal ? Mid-Anteroseptal ?Normal ? Mid-Anterior ?Normal ? Mid-Anterolateral ?? Normal ? Mid-Posterolateral ??Normal ? Mid-Inferior ?Normal ? Mid-Inferoseptal ?Normal ? Bond-Septal ? Normal ? Bond-Anterior ? Normal ? Bond-Lateral ?Normal ? Bond-Inferior ? Normal ? Bond-Tip ?Normal ? This report has been electronically signed by: Freddy Mejias MD ? 01/07/2021 13:36:15 Images reviewed and interpretation verified [facility] Cardiac Ultrasound Laboratory Procedure Note Freddy Mejias MD - 01/07/2021 Procedure: Transthoracic Echocardiogram Patient: APOLINAR SHAY(Age): 1960(60y) Med Rec#: [id number] Sex: F Site Loc: [facility] Ht / Wt: 163(cm)/99(kg) Pt. Loc: Echo Lab BSA: 2.03 Study Date: 01/07/2021 Pt. 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 The left ventricular chamber size [...] See remainder of report for additional findings. Findings : Left Ventricle: The left ventricular chamber size is normal. Left ventricular wall thickness is normal. There is no evidence of LVOT obstruction. No ventricular septal defect is visualized. There is normal global left ventricular systolic function. Ejection fraction is estimated to be 65%. There are no left ventricular segmental wall motion abnormalities. Doppler assessment is consistent with normal left sided filling pressure. Left Atrium: The left atrium is normal in size. No atrial septal defect is visualized. Right Ventricle: Right ventricular chamber size, wall thickness, and systolic function are within normal limits. Pulmonary artery hypertension could not be assessed due to inadequate tricuspid regurgitation jet. Right Atrium: The right atrium appears normal. Aortic Valve: The aortic valve is tricuspid. Systolic excursion of the aortic valve is normal. There is no evidence of aortic valve stenosis. There is no evidence of aortic regurgitation. Mitral Valve: The mitral valve leaflets are mildly thickened. There is trace mitral regurgitation present. Tricuspid Valve: The tricuspid valve leaflets are morphologically normal. There is trace tricuspid regurgitation present. Pulmonic Valve: The pulmonic valve appears normal in structure and function. Pericardium: The pericardium appears normal and there is no evidence of a pericardial effusion. Aorta: The aortic root is normal in size. The ascending aorta is normal in size. Pulmonary Artery: The main pulmonary artery appears normal. Venous: The inferior vena cava appears normal in size. There is a greater than 50% respiratory change in the inferior vena cava dimension. Misc: Two-dimensional echo, spectral Doppler and color Doppler performed. Optison contrast (one 3 ml vial) was used to enhance endocardial definition. Excess contrast was discarded. Chambers 2D Value Units (Range) IVSd (2D) 0.98 cm LVPWd (2D) 0.74 cm IVS:LVPW ratio (2D) 1.33 ratio RWT (2D) 0.37 ratio RWT PW (2D) 0.32 ratio LVIDd (2D) 4.64 cm LVIDs (2D) 3.26 cm LVIDd (2D) index 2.28 cm/m2 LVIDs (2D) index 1.6 cm/m2 LV FS (2D) 29.72 % EF Teichholz (2D) 56.83 % Ao root diameter (2D3.04 cm (2.1 - 3.6) Ascending Ao 3.24 cm (2 - 3.5) Volumes/Mass Value Units (Range) LA Area 4 CH 21.4 cm2 (<21) LA ESV BP (A/L) inde34.26 ml/m2 LV ESV SP 4CH (MOD) 30.84 ml LV ESV SP 2CH (MOD) 23.61 ml LV EDV BP 122.22 ml LV ESV BP 26.84 ml LV EDV BP index 60.09 ml/m2 LV ESV BP index 13.2 ml/m2 BP EF (MOD) 78.04 % LV mass (2D) 131.04 g LV mass (2D) index 64.42 g/m2 Diastolic/Systolic Function Value Units (Range) MV E-wave Vmax 0.56 m/sec MV deceleration puby245.41 msec MV A-wave Vmax 0.81 m/sec MV E:A ratio 0.7 ratio LV septal e' Vmax 0.06 m/sec LV lateral e' Vmax 0.09 m/sec LV average e' Vmax 0.08 m/sec LV E:e' septal ratio9.35 ratio LV E:e' lateral rati6.23 ratio LV average E:e' rati7.48 ratio Aortic Valve Value Units (Range) LVOT diameter 2 cm LVOT Vmax 1.29 m/sec LVOT VTI 28.81 cm LVOT peak gradient 6.64 mmHg LVOT mean gradient 3.24 mmHg SV LVOT 90.7 ml SV LVOT Index 44.7 ml/m2 CO LVOT 4.97 l/min Cardiac index 2.44 l/min/m2 Wall Motion: Segment Name Rest Base-Anteroseptal Normal Base-Anterior Normal Base-Anterolateral Normal Base-Posterolateral Normal Base-Inferior Normal Base-Inferoseptal Normal Mid-Anteroseptal Normal Mid-Anterior Normal Mid-Anterolateral Normal Mid-Posterolateral Normal Mid-Inferior Normal Mid-Inferoseptal Normal Bond-Septal Normal Bond-Anterior Normal Bond-Lateral Normal Bond-Inferior Normal Bond-Tip Normal This report has been electronically signed by: Freddy Mejias MD 01/07/2021 13:36:15 Images reviewed and interpretation verified [facility] Cardiac Ultrasound Laboratory Benito Reed MD ECHO ORDERABLES documented in this encounter Visit Diagnoses Diagnosis 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 documented in this encounter Administered Medications Inactive Administered Medications - up to 3 most recent administrations Medication Order MAR Action Action Date Dose Rate Site perflutren protein-A microsphers (Optison) (0.22 mg/mL) injection 0.5 mL 0.5 mL, Intravenous, ONCE PRN, 1 dose, Starting on Tue01/07/21 at 1328, Until Tue01/07/21 at 1328, for enhancement of sub-optimal echo images, Echo Lab (Intra-Procedure), Routine Given 01/07/2021 1:28 PM EDT 0.5 mLs documented in this encounter Care Teams Web Manager Relationship Specialty Start Date End Date Hoang Castellanos, RESOURCE DIRECTOR [address] [place] [address] PCP - General Family Medicine 03/12/20 documented as of this encounter
--- OUTSIDE RECORDS SUMMARY | 2024-02-22 00:51 | XMS_ITS | Encounter Summary ---
[place] [address] Care Team Providers Care Armhole Feller Handstitching Machine Name Role Phone Hoang Castellanos APRN Primary Care Provider Encounter Details Date Type Department Care Team (Late st Contact Info) Description 10/08/2020 Telephone Primary Care at [facility] [address] [place] [id number] Shannon Cruz RN Social History Tobacco Use Types Packs/Day [...] Telephone Encounter - Shannon Cruz RN - 10/09/2020 1:57 PM EDT Appt schedule: 10/10/2020 Status: Gloria Time: 1:00 PM * Telephone Encounter - Shannon Cruz RN - 10/09/2020 12:46 PM EDT Pt states that she is homebound and cannot safely get out of the appt. Talked to [facility] PT, they are trying to help with with, but right now with dizziness, cannot go down the stairs to leave. Today BP: 150/78 - asking large blood cuff * Telephone Encounter - Shannon Cruz RN - 10/09/2020 12:44 PM EDT Hoang Castellanos APRN to Me RA ?? 3:54 PM Patient needs to make an appt to see me. Perhaps Flavia can help with transportation if that is an issue. We can order UA with reflex to culture for now while awaiting appt. * Telephone Encounter - Shannon Cruz RN - 10/08/2020 1:11 PM EDT Patient reports that she has HTN and also urinary incontinence with foul- smelling and dark urine. She is asking for [facility] RN to come in for BP monitoring and UA and culture. She is also wondering if she needs labs. documented in this encounter Plan of Treatment Not on file documented as of this encounter Results * (ABNORMAL) Urine culture Clean Catch Urine (10/14/2020 10:20 AM EDT) Urine Culture 50,000-99,000 cfu/ml mixed mucosal jan Note: Culture shows multiple bacterial species suggesting mucosal contamination. If symptoms continue to indicate urinary tract infection, submit a new specimen. (A) [facility] Urine specimen obtained by clean catch procedure (specimen) 10/14/2020 10:20 AM EDT 10/14/2020 4:00 PM EDT Narrative Resulting Agency Comment Spec In Lab Hoang Castellanos APRN MICROBIOLOGY - GENER AL ORDERABLES [facility] [address] [place] [address] * (ABNORMAL) _Urinalysis with microscopic (10/14/2020 10:20 AM EDT) Glucose UA Negative Negative LABORATORY Protein UA Negative Negative LABORATORY Bilirubin UA Negative Negative [facility] Comment: Clinical correlation required for positive Urine Bilirubin results as false positive may occur with some drugs and drug related products. If a false positive is suspected a serum total bilirubin should be considered if clinically indicated. Urobilinogen UA Normal Normal mg/dL LABORATORY pH UA 6.5 5.0 - 8.0 LABORATORY Blood UA Moderate(A) Negative LABORATORY Ketones UA Negative Negative LABORATORY Nitrite UA Negative Negative LABORATORY Leukocytes UA Small(A) Negative LABORATORY Appearance UA Slightly Cloudy LABORATORY Spec [employer] UA 1.020 1.006 - 1.030 LABORATORY Color UA Yellow Yellow LABORATORY RBC UA 20(H) 0 - 4 /HPF LABORATORY WBC UA 10(H) 0 - 5 /HPF LABORATORY Bacteria UA Occasional( A) None /HPF LABORATORY Yeast [place] UA Occasional( A) None /HPF LABORATORY Trans Epith UA 2(H) <=1 /HPF LABORATORY CaOx Nadia UA Rare(A) None /HPF [facility] Urine specimen (specimen) 10/14/2020 10:20 AM EDT 10/14/2020 11:15 AM EDT Narrative Resulting Agency Comment Spec In Lab Hoang Castellanos APRN URINE ORDERABLES LABORATORY [address] [place] [address] documented in this encounter Visit Diagnoses Diagnosis Foul smelling urine Other nonspecific finding on examination of urine documented in this encounter Care Teams Armhole Feller Handstitching Machine Relationship Specialty Start Date End Date Hoang Castellanos APRN [address] [place] [address] PCP - General Family Medicine 03/12/20 documented as of this encounter
--- OUTSIDE RECORDS SUMMARY | 2024-02-22 00:51 | XMS_ITS | Encounter Summary ---
Author Organization [facility] [place] [address] Care Team Providers Care Tennis Player Name Role Phone Hoang Castellanos APRN Primary Care Provider Encounter Details Date Type Department Care Team (Late st Contact Info) Description 10/07/2020 Telephone Primary Care at [facility] [address] [place] [phone] Shannon Cruz, RN Social History Tobacco Use [...] Miscellaneous Notes * Telephone Encounter - Shannon Cruz, RN - 10/07/2020 3:02 PM EDT Pharmacy called because patient notified them that cardio told her to d/c plavix. Pharmacy notifiedthat cardio d/c'd rx. Per 10/01 cardio note: #ASCVD s/p PCI - stop plavix at this time (no reason from a stent/cardiology perspective) and given her frequent falls poses significant harm - cont ASA 81mg - cont metoprolol (could consider switching this to carvedilol but baseline bradycardia limits titrate of BB) - recheck lipids - switch simvastatin to atorvastatin 40mg QD documented in this encounter Plan of Treatment Not on file documented as of this encounter Visit Diagnoses Not on filedocumented in this encounter Care Teams Tennis Player Relationship Specialty Start Date End Date Hoang Castellanos APRN [address] [place] [address] PCP - General Family Medicine 03/12/20 documented as of this encounter
--- OUTSIDE RECORDS SUMMARY | 2024-02-22 00:51 | XMS_ITS | Encounter Summary ---
Author Organization [facility] Address [facility] [place] [address] Care Team Providers Care Sales Engineer Engineered Products Name Role Phone Hoang Castellanos APRN Primary Care Provider Reason for Referral * Home Health Care (Routine) - Closed Specialty Diagnoses / Procedures Referred By Contdavide t Referred To Contact Home Health Agency Diagnoses Essential hypertension Hoang Castellanos APRN [address] [place] [address] Visiting Nurse, [facility] [address] [address] Referral ID Status Reason Start Date Expiration Date V isits Requested Visits Authorized [id number] Closed Continuity of Care 10/08/2020 04/06/2021 1 1 Encounter Details Date Type Department Care Team (Late st Contact Info) Description 10/08/2020 Telephone Primary Care at [facility] [place] [address] [facility] [place] [phone] Hoang Castellanos APRN [address] [facility] [place], [place] [id number] Social History Tobacco Use Types Packs/Day Years [...] encounter Miscellaneous Notes * Telephone Encounter - Jasmin Iniguez - 10/08/2020 3:34 PM EDT She would like a referral to the [facility] for blood pressure checks documented in this encounter Plan of Treatment Scheduled Referrals Name Type Priority Associated Diagnoses Orde r Schedule Referral to Home Health - Clinic Use Outpatient Referral Routine Essential hypertension Ordered: 10/08/2020 documented as of this encounter Visit Diagnoses Diagnosis Essential hypertension Unspecified essential hypertension documented in this encounter Care Teams Sales Engineer [employer]ered Products Relationship Specialty Start Date End Date Hoang Castellanos, CARTON LETTERING MACHINE OPERATOR [address] [place] [address] PCP - General Family Medicine 03/12/20 documented as of this encounter
--- OUTSIDE RECORDS SUMMARY | 2024-02-22 00:51 | XMS_ITS | Encounter Summary ---
[facility] [place] [address] Care Team Providers Care Catastrophe Claims Supervisor Name Role Phone Hoang Castellanos APRN Primary Care Provider [phone] Encounter Details Date Type Department Care Team (Late st Contact Info) Description 12/10/2020 Telephone Primary Care at [facility] [address] [facility] [place] [phone] Hoang Castellanos APRN [address] [place] [address] Social History Tobacco Use Types Packs/Day Years [...] Miscellaneous Notes * Telephone Encounter - Meena Galloway, [facility] - 12/10/2020 10:09 AM EDT I placed a follow up call this morning to speak with patient regarding her loss of vision in her right eye. I saw the note from candle extrusion machine operator provider recommending patient go to the ER, and I did not see an ER encounter. Patient states she lost her vision about a week ago, and the ER was to stressful for her to handle given that she has a flare up of her PTSD. I followed up with April Carrington this morning and she suggested that patient be seen emergently by Dr. Garcia at [facility] for an urgent exam. In speaking with patient this morning she was agreeable to this, and I let her know as soon as I spoke to elizabeth bond at [facility], I would let her know. I spoke to Marli at [facility] who was able to have patient seen and refer her to [facility] if needed. Patient was notified that Dr. Garcia office would be contacting her for appointment information. Demographics were faxed to Dr. Garcia office, per Marli's request. Hoang Castellaons APRN was notified of the above action plan and agreed with the plan. documented in this encounter Plan of Treatment Not on file documented as of this encounter Visit Diagnoses Not on filedocumented in this encounter Care Teams Catastrophe Claims Supervisor Relationship Specialty Start Date End Date Hoang Castellanos APRN [address] [place] [address] PCP - General Family Medicine 03/12/20 documented as of this encounter
--- OUTSIDE RECORDS SUMMARY | 2024-02-22 00:51 | XMS_ITS | Encounter Summary ---
[place] [address] Care Team Providers Care Power Shovel Engineer Name Role Phone Hoang Castellanos APRN Primary Care Provider [phone] Reason for Referral * Diagnostic Test (Routine) - Closed Specialty Diagnoses / Procedures Referred By Contac t Referred To Contact Radiology Diagnoses Coronary artery disease involving [place] coronary artery of [place] heart without angina pectoris Procedures NM Pharmacologic Stress and Rest Myocardial Perfusion Dustin Haynes [facility] [place] [address] [place] [address] Referral ID Status Reason Start Date Expiration Date V isits Requested Visits Authorized [id number] Closed Specialty Service Requested 02/16/2021 07/24/2021 1 1 * Diagnostic Test (Routine) - Closed Specialty Diagnoses / Procedures Referred By Contac t Referred To Contact Radiology Diagnoses Coronary artery disease involving [place] coronary artery of [place] heart without angina pectoris Procedures NM Pharmacologic Stress CT Component Dustin Haynes [facility] [place] [address] [facility] [place] [address] Referral ID Status Reason Start Date Expiration Date V isits Requested Visits Authorized [id number] Closed Specialty Service Requested 02/16/2021 07/24/2021 1 1 * Consultation (Routine) - Closed Specialty Diagnoses / Procedures Referred By Vanita dimas Referred To Contact Primary Care Diagnoses Coronary artery disease involving [place] coronary artery of [place] heart without angina pectoris Dustin Haynes, [facility] [place] [address] [facility] [place] [address] Referral ID Status Reason Start Date Expiration Date V isits Requested Visits Authorized [id number] Closed Consult, Test & Treat 01/07/2021 01/07/2022 1 1 Reason for Visit * Consultation (Routine) - Closed Specialty Diagnoses / Procedures Referred By Vanita dimas Referred To Contact Cardiology Diagnoses Coronary artery disease involving [place] coronary artery of [place] heart without angina pectoris CAD - Coronary artery disease involving [place] coronary artery of [place] heart without angina pectoris *[facility] Hoang Castellanos, TEMPLATE CLERK [address] [place] [address] Freddy Mejias MD [facility] [place] [address] Referral ID Status Reason Start Date Expiration Date V isits Requested Visits Authorized [id number] Closed Consult, Test & Treat 07/16/2020 07/16/2021 6 6 Encounter Details Date Type Department Care Team (Late st Contact Info) Description 01/07/2021 2:20 PM EDT Office Visit Cardiology at [address] [phone] Benito Reed MD [facility] [address] Ananth Almodovar MD [facility] [place] [address] Dustin Haynes DO [facility] [place] [address] Coronary artery disease involving [place] coronary artery of [place] heart without angina pectoris Social History Tobacco [...] Sign Reading Time Taken Comments Blood Pressure 128/69 01/07/2021 2:01 PM EDT Pulse 63 01/07/2021 2:01 PM EDT Temperature - - Respiratory Rate - - Oxygen Saturation 100% 01/07/2021 2:01 PM EDT Inhaled Oxygen Concentration - - Weight 98 kg (216 lb) 01/07/2021 2:01 PM EDT Height - - Body Mass Index 37.06 12/15/2020 1:13 PM EDT documented in this encounter Progress Notes * Dustin Haynes DO - 01/07/2021 2:20 PM EDT Images from the original note were not included. [facility] [place] [address] CARDIOLOGY OUTPATIENT NOTE PRIMARY CARE PROVIDER: Hoang Castellanos APRN REFERRING PROVIDER: Dustin Haynes Subjective: Patient ID: Jeannie Rico is a 60 y.o. female. with a hx of ASCVD s/p PCI to prox and mid LAD (2012) HTN, tobacco use, type II DM, depression, and COPD here to discuss the above issues. HPI This is a follow up from our telehealth visit in September of 2020. Major issues at that time were uncontrolled HTN and frequent falls which appeared mechanical in nature but were severally limiting her mobility. She was unfortunately essentially unable to leave her house due to a combination of falls/instability and transportation issues. It appears this has somewhat improved and Jeannie is now ambulating with a walker and has a motorized scooter and is able to go about daily household activities and is beginning to venture outside of her house with assistance for essential appointments. At our last visit pt was still taking Plavix from a remote hx of PCI which she was instructed to stop. Other workup recommended at that time was a Zio and TTE. Zio has since shown NSR without significant arrythmia or pauses. TTE today shows normal LVEF at 65%, no regional WMA, and no valvular heart disease. Regarding her BP, she reported a hx of severely uncontrolled BP in the 180-190s/80-90s at home and was started on amlodipine 5mg and at her recent PCP appointment her BP was 100/60 and today is 128/69. Jeannie hasn't fallen in ~ 1 month and is ambulating with a walker. Despite using the walker she is only able to walk across the room before she has to stop due to severe dyspnea and it takes her considerable amount of time to get around her house. Prior to her prior PCI her anginal sx were predominantly left shoulder and arm pain and she denies any of these sx since her PCI in 2012. She continues to smoke ~ 1-2 ppd and is interested in quiting but lives with her who has schizophrenia andmellyo is a heavy smoker. 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 From Telehealth visit from 10/01/20: Jeannie is a 60 yo female who was previously seen by Dr. Mejias, last in 2016 and was lost to cardiology follow up since then. From a cardiology perspective she has done relatively well and denies any chest pain or pressure, exertional AVILA or chest tightness, orthopnea, LE edema, PND or symptoms similar to her those prior toher last PCI. We reviewed all of her current medications (which she reportedly received pre-packaged from a specialty pharmacy) and she confirms that she is still taking the Plavix. Unfortunately Jeannie's major issues recently have been marked HTN and unsteadiness/falls. Due to frequent falls she is essentially unable to leave the house and is reliant on others to bring her medications and shop for her. All of her medications come pre-packaged and she has PT that comes to the house 1x a week. They check her BP and over the past 4 weeks values have been 180-190/80-90s with HR in the low 50s. Her PCP is aware of this and has increased her lisinopril from 10 mg to 40 mg with minimal improvement in her BP. She denies headaches or chest pain and is not able to check her BP outside of when PT is there. Regarding the falls, Shahla reports she is falling very frequently and essentially can not leave thehouse due to falls. She does use a walker at home which has helped some. Pt reports feeling dizzy and unsteady before the falls but denies any lightheadedness, syncope, or near syncope. When pressed to describe symptoms further she is unable to aside from being unsteady and just falling. She reportedly broke her hand over the winter but denies hitting her head or or losing consciousness. Onchart review this has been a longstanding problem and it appears Dr. Mejias had decreased her lisinopril at prior visits out of concerns for orthostatic symptoms. Jeannie also reports a diagnosis of be nign intracranial hypertension (reportedly made by Dr. Bass in the ). She has stopped trazodone and seroquel without a change in symptoms. Jeannie continues to smoke at least 1 ppd and lives athome with her . Review of Systems: No flowsheet data found. PROBLEM LIST: Patient Active Problem List Diagnosis ??? Cataract [...] Hypothyroidism, acquired ??? Borderline personality disorder Per [facility]CR[facility] Psychiatry ??? Osteoporosis DEXA done at [facility] on 10/29/15: osteoporosis at the left hip T-3, and osteopenia of the spine T-1.9 ??? Smokes cigarettes ??? GERD (gastroesophageal reflux disease) ??? Anxiety ??? Depression ??? Post traumatic stress disorder (PTSD) ??? Hidradenitis suppurativa ??? Chronic pain ??? Cervicalgia ??? Lumbago MEDICATIONS: Outpatient Medications Marked as Taking for the 01/07/21 encounter (Office Visit) with Ananth Almodovar MD Medication Sig Dispense Refill ??? Acidophilus Capsule TAKE TWO (2) CAPSULES BY MOUTH TWICE A DAY (VIAL) 112 capsule 11 ??? FeroSuL 325 mg (65 mg iron) Tablet TAKE ONE (1) TABLET BY MOUTH THREE TIMES A WEEK 12 tablet 11 ??? Incruse Ellipta 62.5 mcg/actuation Disk with Device ??? prazosin (Minipress) 2 mg Capsule TAKE [...] for Chest pain. 30 tablet 1 ??? fluticasone propion-salmeteroL (Advair Diskus) 500-50 mcg/dose Disk with Device Inhale 1 puff into the lungs 2 times daily. 60 each 11 ??? aspirin EC 81 mg Tablet, Delayed [...] for 30 min. 52 tablet 0 ??? isosorbide mononitrate CR (Imdur) 30 mg Tablet Sustained Release 24 hr Take 1 tablet by mouth daily. 90 tablet 3 ??? Miscellaneous Medical Supply [facility] 1 walker on wheels with seat 1 each 0 ??? ibuprofen (Advil;Motrin) 800 mg Tablet Take 1 tablet by mouth every 8 hours as needed for Pain.90 tablet 5 ??? sertraline (ZOLOFT) 100 mg Tablet Take 1 tablet by mouth 2 times daily. ??? multivitamin (THERAGRAN) Tablet Take 1 tablet by mouth daily. ??? calcium-vitamin D 500 mg(1,250mg) -200 unit Tablet Take 1 tablet by mouth 2 times daily (with meals). ??? lancets 30 gauge Misc 1 each by [facility].(Non-Drug; Combo Route) route daily. 100 each 3 ??? ARIPiprazole (Abilify) 5 mg Tablet ??? lactobacillus rhamnosus, GG, (CULTURELLE) 10 billion cell Capsule Take 2 capsules by mouth 2 times daily. ??? alum-mag hydroxide-simeth (Maalox) 200-200-20 mg/5 mL Suspension Take 10 mLs by mouth every 6 hours as needed for Indigestion. ??? tiotropium bromide (SPIRIVA RESPIMAT) 2.5 mcg/actuation Mist Inhale 2 puffs into the lungs nightly. 12 g 3 ??? MARIJUANA ORAL Take by mouth. FAMILY HISTORY: + Family history of CAD SOCIAL HISTORY: , no children. [place] in [place]. Occupation: On Disability. Smoking: Active smoker, 1-2ppd, previously 2 ppd Alcohol: Prior alcohol use, quit ~ 1994 Illicits: Denies Objective: Vitals: 01/07/21 1401 BP: 128/69 Patient Position: Sitting Pulse: 63 SpO2: 100% Weight: 98 kg (216 lb) Physical Exam Gen: obese, appears older than stated age HEENT: sclera non-icteric, MMM CV: RRR, no murmurs, radial pulses 2+ b/l, Pulm: CTA b/l, breathing non-labored Abd: soft, NT, ND, +nabs Ext: no edema or clubbing Neuro: no focal deficits grossly noted. Orientation - person, place and time. Moving all extremities spontaneously Last 3 wbc, hgb, hct plt Recent Labs 10/14/20 1020 07/03/20 1255 WBC 9.9* 12.3* HGB 14.6 14.2 HCT 45.7 43.6 PLATELET 241 240 Last 3 Lytes Recent Labs 10/14/20 1020 07/03/20 1255 NA 138 139 K 4.1 4.3 CL 99 101 CO2 28 29 BUN 21* 17 CREATININE 0.72 0.81 Last 3 LFTs Recent Labs 10/14/20 1020 AST 11 ALT 6 ALKPHOS 108* BILITOT 0.3 Lipid Panel Lab Results Component Value Date CHLPL 114 12/27/2019 HDL 38 12/27/2019 CHOLHDL 3.0 12/27/2019 TRIG 102 12/27/2019 LDLCHOL 56 12/27/2019 Recent Labs 10/14/20 1020 TSH 1.96 Last 3 Lipids No results for input(s): CHLPL, HDL, LDLCHOL, LDLDIRECT, TRIG in the last 7068 hours. Last 3 HgbA1C Recent Labs 10/14/20 1020 HA1C 5.7* Imaging/Diagnostics TTE 01/07/21: 1. The left ventricular chamber size is [...] See remainder of report for additional findings. Zio 10/09/20: - Atrial fibrillation none - <1% atrial premature beats (APC? s) - <1% ventricular premature beats (VPC's) -1 runs of SVT was observed, 7 beats at 133 bpm. ??- No high grade ectopy ??Triggered and Patient Diary Events ??There were 10 triggered and 6 patient diary events: Pounding, lightheaded, dizzy, pain/tingling in neck/arm and triggered events occurred during sinus rhythm with heart rate range of 40s-70s bpm. Conclusion(s): 1. Predominant rhythm is sinus. 2. Symptoms occurred during sinus rhythm. 3. No sustained arrhythmias. Assessment and Plan: 1. CAD s/p PCI to prox and mid LAD (03/2013) 2. HTN 3. Type II DM 4. COPD 5. Active tobacco use Jeannie Rico is a 60 y.o. female with known CAD and multiple risk factors presenting for follow-up. Her primary issues at our last telehealth visit were uncontrolled HTN and frequent falls. The BPhas since improved with addition of low dose amlodipine - however suspect inaccurate measurements at home since her office BP readings have always been well controlled. At her PCP appointment and today her BP is well controlled and at goal. Her falls have also improved and appear likely mechanical in nature with possible neuropathy component. There is no evidence either from hx or objective workup thus far to suggest a cardiac etiology to her falls. Pt is on a good medication regimen with ASA, high intensity statin, and BB with well controlled BP and lipids that were at goal at last check. Her most concerning sx at this point is her significant, activity limiting AVILA. This is likely multifactorial in nature but given her known prior CAD and multiple active risk factors will obtain pharmacologic nuclear stress test to assess for potential ischemia contributing to sx. #ASCVD - cont ASA 81mg - cont metoprolol - cont atorvastatin 40mg QD - pharmacologic nuclear stress test - if small area of ischemia will likely opt for medical management. If large area of ischemia or significant anterior ischemia will likely plan on cath ?? #HTN - cont current regimen of amlodipine 5mg, Lisinopril 40mg, Imdur, and metoprolol as BP is well controlled on the above regimen - RTC in 1 year, sooner pending results of stress test or symptoms. Dustin Haynes, Otr Van Cdl Truck Driver; PGY-5 01/07/2021 I have seen the patient and reviewed the fellow's above history and I agree with the details as written. The assessment and plan were formulated in discussion with me and I agree with them as documented. documented in this encounter Plan of Treatment Scheduled Referrals Name Type Priority Associated Diagnoses Orde r Schedule Referral to Smoking Cessation Program Outpatient Referral Routine Coronary artery disease involving [place] coronary artery of [place] heart without angina pectoris Ordered: 01/07/2021 documented as of this encounter Results * Nuclear Pharmacologic Stress Cardiology (04/15/2021 12:06 PM EDT) Anatomical Region Laterality Modality Other Benito Reed MD CARDIAC SERVICE S ORDERABLES * NM Pharmacologic Stress CT Component (04/15/2021 [...] have questions please contact the health care program resident that requested your imaging first. ? Electronically signed by: Matthew Morrison MD, [facility] ([phone]), at 04/15/2021 3:42 PM Narrative 04/15/2021 3:42 [...] who have questions please contactthe health care program resident that requested your imaging first. Electronically signed by: Matthew Morrison MD, [facility]([phone]), at 04/15/2021 3:42 PM Benito Reed MD [...] have questions please contact the health care program resident that requested your imaging first. ? Electronically signed by: Matthew Morrison MD, [facility] ([phone]), at 04/15/2021 3:42 PM Narrative 04/15/2021 3:42 [...] who have questions please contactthe health care program resident that requested your imaging first. Benito Reed MD IMG NM ORDERABL ES documented in this encounter Visit Diagnoses Diagnosis Coronary artery disease involving [place] coronary artery of [place] heart without angina pectoris Coronary artery disease involving [place] coronary artery of [place] heart without angina pectoris Coronary artery disease involving [place] coronary artery of [place] heart without angina pectoris documented in this encounter Care Teams Power Shovel Engineer Relationship Specialty Start Date End Date Hoang Castellanos, TEMPLATE CLERK [address] [place] [address] PCP - General Family Medicine 03/12/20 documented as of this encounter
--- OUTSIDE RECORDS SUMMARY | 2024-02-22 00:51 | XMS_ITS | Encounter Summary ---
Author Organization [facility] [place] [address] Care Team Providers Care Laboratory Immunologist Name Role Phone Hoang Castellanos APRN Primary Care Provider Encounter Details Date Type Department Care Team (Late st Contact Info) Description 01/13/2021 Abstract [facility] [address] [place] [id number] Provider, His MD Che Social History Tobacco Use Types Packs/Day Years [...] on filedocumented in this encounter Care Teams Laboratory Immunologist Relationship Specialty Start Date End Date Hoang Castellanos APRN [address] [place] [address] PCP - General Family Medicine 03/12/20 documented as of this encounter
--- OUTSIDE RECORDS SUMMARY | 2024-02-22 00:51 | XMS_ITS | Encounter Summary ---
Author Organization [facility] [address] Care Team Providers Care Fiction Writer Name Role Phone Hoang Castellanos APRN Primary Care Provider Reason for Visit * Reason Comments Medication Refill Encounter Details Date Type Department Care Team (Late st Contact Info) Description 11/24/2020 Refill Primary Care at [facility] [address] [facility] [phone] Hoang Castellanos APRN [address] [facility] [place] [address] Social History Tobacco Use Types Packs/Day Years [...] Telephone Encounter - Shannon Cruz RN - 11/25/2020 4:08 PM EDT PCP: Hoang Castellanos APRN Medication: Requested Prescriptions Pending Prescriptions Disp Refills ??? FeroSuL 325 mg (65 mg iron) Tablet [Pharmacy Med Name: FeroSul 325 (65 Fe) MG Tablet] 12 Sig: TAKE ONE (1) TABLET BY MOUTH THREE TIMES A WEEK Last Appt: 10/10/2020 Future Appt: 12/15/2020 Comments: last prescribed by Priya Charles APRN Pharmacy: [facility] Last rx: 01/08/2020: 36 tablets/capsules, 3 refills Lab Results Component Value Date IRON 67 10/14/2020 TIBC 342 10/14/2020 FERRITIN 60 10/14/2020 documented in this encounter Plan of Treatment Not on file documented as of this encounter Visit Diagnoses Not on filedocumented in this encounter Care Teams Fiction Writer Relationship Specialty Start Date End Date Hoang Castellanos APRN [address] [place] [address] PCP - General Family Medicine 03/12/20 documented as of this encounter
--- OUTSIDE RECORDS SUMMARY | 2024-02-22 00:51 | XMS_ITS | Encounter Summary ---
Author Organization [facility] [place] [address] Care Team Providers Care Beef Tagger Name Role Phone Hoang Castellanos APRN Primary Care Provider [phone] Reason for Visit * Reason Onset Date Comments Other 10/07/2020 Encounter Details Date Type Department Care Team (Late st Contact Info) Description 10/07/2020 Telephone Cardiology at [address] [phone] Devi Thomson, RN Other Social History Tobacco Use Types Packs/Day [...] encounter Miscellaneous Notes * Telephone Encounter - Devi Thomson, RN - 10/07/2020 1:31 PM EDT Call from Jeannie,states [facility]ER[facility] P.T. is planning to discharge her from homecare services in the next fewweeks,states she will no longer have access to B/P assessment . This RN recommending Jeannie speak with her P.T. and request her Physical Therapist refer Skilled Nurse services based upon need for assessment of B/P and response to medication changes( recently made by PCP). [facility] will forward this request for services to PCP office. Dr Haynes also stated in his 10/01/20 Telehealth visit : Unfortunately due to transportation issues Jeannie reports she is not able to come in and get these tests done. I will communicate my thoughts and recommendations to the pt's PCP as it seems like there are more underlying issues present and wonder if Jeannie would benefit from [facility] to help facilitate la bs and transportation. Jeannie expresses good understanding,will contact this office with any questions or concerns,appreciative of this conversation. documented in this encounter Plan of Treatment Not on file documented as of this encounter Visit Diagnoses Not on filedocumented in this encounter Care Teams Beef Tagger Relationship Specialty Start Date End Date Hoang Castellanos, SAM [address] [place] [address] PCP - General Family Medicine 03/12/20 documented as of this encounter
--- OUTSIDE RECORDS SUMMARY | 2024-02-22 00:51 | XMS_ITS | Encounter Summary ---
Author Organization [facility] Address [facility] [place] [address] Care Team Providers Care Neurophysiology Tech Name Role Phone Hoang Castellanos APRN Primary Care Provider Reason for Referral * Home Health Care (Routine) - Closed Specialty Diagnoses / Procedures Referred By Contac t Referred To Contact Diagnoses Dizziness Generalized weakness Benign essential hypertension Right leg weakness Ananth Wilson MD [address] [place] [address] Unknown None Referral ID Status Reason Start Date Expiration Date V isits Requested Visits Authorized [id number] Closed Continuity of Care 02/03/2021 08/02/2021 1 1 Encounter Details Date Type Department Care Team (Late st Contact Info) Description 02/03/2021 10:00 AM EDT Office Visit [facility] at [facility] [address] [place] [place] [id number] Ananth Wilson MD [address] [place] [address] Dizziness; Generalized weakness; Benign essential hypertension; Right leg weakness Social History Tobacco Use [...] Sign Reading Time Taken Comments Blood Pressure 116/60 02/03/2021 9:54 AM EDT Pulse 53 02/03/2021 9:54 AM EDT Temperature - - Respiratory Rate 20 02/03/2021 9:54 AM EDT Oxygen Saturation 98% 02/03/2021 9:54 AM EDT Inhaled Oxygen Concentration - - Weight 96.4 kg (212 lb 9.6 oz) 02/03/2021 9:54 A M EDT Height 162.6 cm (5' 4.02) 02/03/2021 9:54 AM ED T Body Mass Index 36.47 02/03/2021 9:54 AM EDT documented in this encounter Progress Notes * Ananth Wilson MD - 02/03/2021 10:00 AM EDT Subjective: HPI: Jeannie Rico is a 60 y.o. female presenting to the [facility] Balance Issues/Dizziness Sx for 2-2.5 yrs. Sx got worse in June 2020 got really bad. Has fallen at home 2 times, bottom of her ramp, fell in bath tub. Dizziness comes & goes, sometimes bad other times tolerable. Fellout of her bed 2 years ago. Is no longer sleeping in high bed. Has a handle in tub wall. She has trouble lifting leg over tub.Has shower chair in tub. Has no handles on ramp to her house. Is looking for VNA referral. States she needs help with house work, light cleaning, she needs help with showers, ADL's, P.T. in home. is living in home with her but has medical issues himself & is unable to do much in the way of helping her. Objective: VS: BP 116/60 Pulse 53 Resp 20 Ht 162.6 cm (5' 4.02) Wt 96.4 kg (212 lb 9.6 oz) LMP (LMPUnknown) SpO2 98% BMI 36.47 kg/m?? Physical Exam Vitals and nursing note reviewed. Constitutional: General: She is not in acute distress. Appearance: She is well-developed. She is not diaphoretic. Comments: Wheelchair today (walker at home). Eyes: General: No scleral icterus. Conjunctiva/sclera: Conjunctivae normal. Cardiovascular: Rate and Rhythm: Normal rate. Pulmonary: Effort: Pulmonary effort is normal. Skin: General: Skin is warm and dry. Neurological: Mental Status: She is alert and oriented to person, place, and time. Motor: Weakness present. Gait: Gait abnormal. Comments: Lower extrem's bilaterally. Psychiatric: Mood and Affect: Mood normal. Behavior: Behavior normal. Thought Content: Thought content normal. Judgment: Judgment normal. Assessment and Plan: Diagnoses and all orders for this visit: Dizziness - Referral to Home Health - Clinic Use Generalized weakness - Referral to Home Health - Clinic Use Benign essential hypertension - Referral to Home Health - Clinic Use Right leg weakness - Referral to Home Health - Clinic Use Problem List Items Addressed This Visit Benign essential hypertension Relevant Orders Referral to Home Health - Clinic Use Dizziness Relevant Orders Referral to Home Health - Clinic Use Generalized weakness Relevant Orders Referral to Home Health - Clinic Use Right leg weakness Relevant Orders Referral to Home Health - Clinic Use Plan: [facility] referral. There are no Patient Instructions on file for this visit. FOLLOWUP: Return if symptoms worsen or fail to improve, with PCP Hoang Castellanos.. documented in this encounter Plan of Treatment Scheduled Referrals Name Type Priority Associated Diagnoses Orde r Schedule Referral to Home Health - Clinic Use Outpatient Referral Routine Dizziness Generalized weakness Benign essential hypertension Right leg weakness Ordered: 02/03/2021 documented as of this encounter Visit Diagnoses Diagnosis Dizziness Dizziness and giddiness Generalized weakness Other malaise and fatigue Benign essential hypertension Essential hypertension, benign Right leg weakness Other musculoskeletal symptoms referable to limbs documented in this encounter Care Teams Neurophysiology Tech Relationship Specialty Start Date End Date Hoang Castellanos APRN [address] [place] [address] PCP - General Family Medicine 03/12/20 documented as of this encounter
--- OUTSIDE RECORDS SUMMARY | 2024-02-22 00:51 | XMS_ITS | Encounter Summary ---
Author Organization [facility] [place] [address] Care Team Providers Care Motor Coach Supervisor Name Role Phone Hoang Castellanos APRN Primary Care Provider Reason for Visit * Reason Onset Date Comments TeleHealth 02/03/2021 Encounter Details Date Type Department Care Team (Late st Contact Info) Description 02/03/2021 Telephone [place] [address] Altagracia Baltazar MD [facility] [place] [address] TeleHealth Social History Tobacco Use Types Packs/Day [...] Telephone Encounter - Prudence Graff RN - 02/03/2021 8:42 AM EDT Spoke to this patient??by phone to review their medications and allergies prior to their upcoming tele-appointment with the Neurology provider. ??Medications and allergies reviewed, verified and updated as needed. documented in this encounter Plan of Treatment Not on file documented as of this encounter Visit Diagnoses Not on filedocumented in this encounter Care Teams Motor Coach Supervisor Relationship Specialty Start Date End Date Hoang Castellanos APRN [address] [place] [address] PCP - General Family Medicine 03/12/20 documented as of this encounter
--- OUTSIDE RECORDS SUMMARY | 2024-02-22 00:51 | XMS_ITS | Encounter Summary ---
[place] [address] Care Team Providers Care Director Of Staff Development Name Role Phone Hoang Castellanos APRN Primary Care Provider Encounter Details Date Type Department Care Team (Late st Contact Info) Description 12/12/2020 Telephone Primary Care at [facility] [address] [place] [id number] Shannon Cruz, RN Social History Tobacco Use [...] Telephone Encounter - Shannon Cruz RN - 12/12/2020 2:08 PM EDT Patient LM reporting that she went to optomitrist today. She has a dense cataract and they are referring her ophthalmology. documented in this encounter Plan of Treatment Not on file documented as of this encounter Visit Diagnoses Not on filedocumented in this encounter Care Teams Director Of Staff Development Relationship Specialty Start Date End Date Hoang Castellanos, SALES PRODUCT SPECIALIST [address] [place] [address] PCP - General Family Medicine 03/12/20 documented as of this encounter
--- OUTSIDE RECORDS SUMMARY | 2024-02-22 00:51 | XMS_ITS | Encounter Summary ---
Author Organization [facility] [place] [address] Care Team Providers Care Block Piler Name Role Phone Hoang Castellanos APRN Primary Care Provider Reason for Visit * Consultation (Routine) - Closed Specialty Diagnoses / Procedures Referred By Contdavide t Referred To Contact Neurology Diagnoses Right leg weakness Dizziness Hoang Castellanos APRN [address] [place] [address] [facility] [address] [place] [address] Referral ID Status Reason Start Date Expiration Date V isits Requested Visits Authorized [id number] Closed Specialty Service Requested 12/17/2020 12/17/2021 12 12 Encounter Details Date Type Department Care Team (Late st Contact Info) Description 02/04/2021 8:00 AM EDT TH Visit (TeleHealth) [place] [address] Altagracia Baltazar MD [facility] [place] [address] Weakness of both lower limbs Social History Tobacco Use Types Packs/Day Years [...] as of this encounter Progress Notes * Mariana Willis MD - 02/04/2021 8:00 AM EDT Neurology Outpatient Clinic Note - 02/04/2021 PCP: Hoang Castellanos APRN Clinic Attending: Altagracia Baltazar MD CC: proximal weakness BL LE R > L HPI: Jeannie Rico is a 60 y.o. female with PMHx of DM2, cervical central spinal stenosis; presenting with BL LE proximal weakness worse on the R, paresthesias in the BL hands. Patient reports difficulty with standing and walking that started in June. She describes the sensation of weakness in BL LE, but R > L. Further describes it as difficulty bending at the knee on the RLE, hitting her toes against the ground when walking BL but R>L, and trouble getting into the bathtub. She has had a lot of PT. Walks with a walker, which helps. She feels weakest first thing in the AM, gets better as the day goes on, then worsens again at night. Also has pain in her upperthigh of both sides that started years ago; intermittent, usually 5/10 but can be 8-9/10. Describesas a shooting pain. Starts in her back (lower back) and radiates to both thighs. Since onset, both weakness and pain have gotten worse. It worsens with standing, improves with sitting/lying down/hunching over. Additionally reports that while not as impairing, she does have BL upper arm weakness, manifesting as difficulty extending arms above head (e.g. brushing teeth or hair) for extended periodsof time and necessitating breaks. No LOS or paresthesias in legs but does experience both LOS and paresthesias in BL hands (fingers),and describes a burning sensation (this has persisted/worsened for 3 years). Does have Hx of DM, Hgb A1c was 5.7 in September 2020. Falls- she falls 'out of the blue', ever since she was a kid, has worsened over time. No lightheadedness before falling, no other prodromal Sx, though sometimes has double vision. Double vision ongoing for a couple years, uncertain whether worse in AM or night. Sometimes her diplopia is associated with migraines but sometimes occurs independently. She reports that she does have neck pain, and has previously been told her neck imaging shows severe disease. Past Medical & Surgical History: Patient Active Problem List Diagnosis ??? Cataract [...] ??? Borderline personality disorder Overview Note: Per [facility] ??? Osteoporosis Overview Note: DEXA done at [facility] on 10/29/15: osteoporosis at the left hip T-3, and osteopenia of the spine T-1.9 ??? Smokes cigarettes ??? GERD (gastroesophageal reflux disease) ??? Anxiety ??? Depression ??? Post traumatic stress disorder (PTSD) ??? Hidradenitis suppurativa ??? Chronic pain ??? Cervicalgia Overview Note: ??? Lumbago Overview Note: Past Medical History: Diagnosis Date ??? Depression [...] BIOPSY performed by Ken Sanders MD at [facility] ENDOSCOPY ??? PRO UPPER GI ENDOSCOPY, BIOPSY N/A 09/19/2018 UPPER GASTROINTESTINAL ENDOSCOPY,WITH BIOPSY SINGLE OR MULTIPLE (WRVU 2.49) performed by Tyron Mercado MD at [facility] ENDOSCOPY ??? TONSILLECTOMY ??? UPPER GI ENDOSCOPY, EXAM 12/04/2010 UPPER GI ENDOSCOPY performed by DEE WRIGHT at [facility] ENDOSCOPY Medications: Current Outpatient Medications on File Prior to Visit Medication Sig Dispense Refill ??? Acidophilus Capsule [...] 90 tablet 3 ??? Miscellaneous Medical Supply [facility] 1 walker on [...] lancets 30 gauge Misc 1 each by [facility].(Non-Drug; Combo Route) route daily. (Patient not taking: [...] facility-administered medications on file prior to visit. Allergy: Allergies Allergen Reactions ??? Morphine Shortness Of Breath ??? Sumatriptan Hives ??? Oxycodone Other (See Comments) drunk feeling, dizzy ??? Oxycodone-Acetaminophen Other (See Comments) dizziness, feels drunk ??? Chantix [Varenicline] psychotic ??? Imitrex [Sumatriptan Succinate] Hives ??? Prednisone Other reaction(s): aggitation Family History: Family History Problem Relation Age of Onset [...] Other Sister 43 Breast Neoplasm, Benign Social History: Social History Tobacco Use ??? Smoking status: Current Every Day Smoker Packs/day: 1.50 Years: 45.00 Pack years: 67.50 Types: Cigarettes ??? Smokeless tobacco: Never Used Vaping Use ??? Vaping Use: Never used Substance Use Topics ??? Alcohol use: No Comment: not drank in 24 years ??? Drug use: Yes Types: Marijuana Comment: 3 times per day, medical Review of systems: Constitutional: No fevers or chills Eyes: No vision changes, +diplopia ENT: No rhinorrhea or pharyngitis, no meningismus CV: No chest pain or palpitations Resp: No cough, no shortness of breath GI: No nausea, vomiting, diarrhea or constipation : No dysuria, no incontinence Heme: No bleeding or bruising Endo: No polyuria or cold intolerance Neuro: See HPI Psych: No depression, normal sleep [x] Review of systems otherwise negative Physical Exam: Not performed in this TeleHealth Visit Diagnostic Tests and Imagin09/16/2020 MRI brain wwo contrast: No acute intracranial abnormality. No IAC mass or abnormal enhancement. 02/19/2020: MRI L-spine wo contrast: Overall mild degenerative change in the lumbar spine as described level by level in the body of the report. No nerve root impingement at any level. New small disc bulge at L3-L4, though with no more than mild central canal narrowing. 05/19/2009 MRI C-spine: (1) Central disc herniation resulting in severe central spinal stenosis at C5-C6. (2) Lesser central spinal stenosis at C6-C7 due to bulging of the annulus fibrosus. Assessment / Plan: Jeannie Rico is a 60 y.o. female with PMHx of DM2 and cervical spinal stenosis, presenting now with BL LE proximal weakness worse on R and paresthesias/LOS of BL hands. Differential of patient's proximal weakness is broad, including an L5 neuropathy (lumbosacral radiculopathy, plexopathy), a mononeuropathy of the sciatic nerve, or (especially considering associated symptoms like diplopia) a NMJ disorder. Less likely to be 2/2 cord compression given MRI L-spine last year showing only very mild dz. Hx of MRI with evidence of severe cervical disease might explain some of pt's proximal arm weakness and BL hand paresthesias/LOS, especially in t/s/o well-controlled DM2 as evidenced by recent Hgb A1c < 6. Reasonable to begin workup with blood work to evaluate for primary myositis vs. NMJ disorder, and to repeat MRI of C-spine as previously over 10 years ago showed severe disease. Can eventually consider EMG/NCS pending results of blood work and imaging. # BL LE weakness, R > L #Mild proximal UE weakness, BL #Diplopia - obtain the following labs: CBC, BMP, CK, anti-AchR - pending results of above, can consider EMG/NCS #BL hand LOS/paresthesias - repeat MRI C-spine // Patient seen with Dr. Baltazar //RTC for Tele-Health after MRI completed Mariana Willis MD Neurology, PGY-2 02/04/2021 * Altagracia Baltazar MD - 02/04/2021 8:00 AM EDT ATTENDING NOTE: I reviewed the pertinent aspects of the history with the patient and agree with the history as outlined in the resident's note. I reviewed the impression and plan with the resident and agree with it as documented. Briefly, this is a very pleasant gentlewoman [...] considered. Her diabetes is not poorly controlled and would likely be an inadequate explanation for [...] right lumbosacral plexopathy, radiculopathy, or sciatic mononeuropathy. Altagracia Baltazar MD Associate Prof Neurol Neuromuscular Medicine & Clinical Neurophysiology\ documented in this encounter Plan of Treatment Scheduled Referrals Name Type Priority Associated Diagnoses Orde r Schedule Referral to Neurology Outpatient Referral Routine Right leg weakness Dizziness Ordered: 12/17/2020 documented as of this encounter Visit Diagnoses Diagnosis Weakness of both lower limbs Other musculoskeletal symptoms referable to limbs documented in this encounter Care Teams Block Piler Relationship Specialty Start Date End Date Hoang Castellanos, LEARNING AND DEVELOPMENT ANALYST [address] [place] [address] PCP - General Family Medicine 03/12/20 documented as of this encounter
--- OUTSIDE RECORDS SUMMARY | 2024-02-22 00:51 | XMS_ITS | Encounter Summary ---
Author Organization [facility] Address [facility] [place] [address] Care Team Providers Care Lumber Tallier Name Role Phone Hoang Castellanos APRN Primary Care Provider Encounter Details Date Type Department Care Team (Latest Contact Info) Description 10/14/2020 10:45 AM EDT - 10/14/2020 11:59 PM EDT Hospital Encounter Laboratory at [facility] [place] [address] Foul smelling urine; Vitamin B12 deficiency; Vitamin D deficiency; Iron deficiency anemia, unspecified iron deficiency anemia type; Hypothyroidism, acquired; Type 2 diabetes mellitus without complication, without long-term current use of insulin Discharge Disposition: Home Social History Tobacco Use [...] Start Date End Date Miscellaneous Medical Supply MiscIndications:Dizzin ess,Chronic right-sided low back pain without sciatica 1 walker on wheels with seat 1 each 03/12/2020 multivitamin (THERAGRAN) Tablet Take 1 tablet by mouth daily. MARIJUANA ORAL Take 1 Dose by mouth 2 times daily. sertraline (ZOLOFT) 100 mg Tablet Take 2 tablets by mouth 2 times daily. 01/27/2020 04/14/2023 Incruse Ellipta 62.5 mcg/actuation Disk with Device Inhale 1 puff into the lungs daily. 10/12/2020 2021 amLODIPine (Norvasc) 5 mg TabletIndications:Augie gn essential hypertension Take 1 tablet by mouth daily. 90 tablet 3 10/16/2020 09/01/2021 nitrofurantoin (Macrobid) 100 mg CapsuleIndications:Acu te cystitis with hematuria Take 1 capsule by mouth 2 times daily for 5 days. 10 capsule 10/14/2020 10/19/2020 omeprazole (PriLOSEC) 20 mg Capsule, Delayed Release(E.C.)Indicatio ns:Gastroesophageal reflux disease TAKE ONE (1) CAPSULE BY MOUTH TWICE A DAY 30 MIN BEFORE BREKAFAST AND IN THE EVENING 56 capsule 11 10/02/2020 09/01/2021 lisinopriL (Prinivil;Zestril) 40 mg TabletIndications:Augie gn essential hypertension Take 1 tablet by mouth [...] lungs 2 times daily. 60 each 11 05/09/2020 02/03/2021 aspirin EC 81 mg Tablet, [...] 3 04/28/2020 03/17/2021 alendronate (Fosamax) 70 mg TabletIndications:Age- related osteoporosis without current pathological fracture Take 1 tablet by mouth every 7 days. Take in AM with full glass of water, on an empty stomach. Do not lie down for 30 min. 52 tablet 04/01/2020 03/23/2021 prazosin (Minipress) 2 mg Capsule Take 1 capsule by mouth daily. 03/23/2020 10/31/2020 isosorbide mononitrate CR (Imdur) 30 mg Tablet Sustained Release 24 hr Take 1 tablet by mouth daily. 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 90 tablet 5 03/04/2020 11/04/2021 Acidophilus Capsule TAKE TWO (2) CAPSULES BY MOUTH TWICE A DAY 112 capsule 11 01/21/2020 12/23/2020 ferrous sulfate 325 mg (65 mg iron) Tablet Take 1 tablet by mouth three times a week. 36 tablet 3 01/08/2020 11/26/2020 lancets 30 gauge MiscIndications:Type 2 diabetes mellitus without complication, without long-term current use of insulin [The details of the medication are not available because there are pending changes by a home health clinician.] 100 each 3 12/26/2019 11/30/2021 simvastatin (Zocor) 40 mg TabletIndications:CAD (coronary artery disease) Take 1 tablet by mouth nightly. 90 tablet 3 12/25/2019 10/16/2020 ARIPiprazole (Abilify) 5 mg Tablet Take 5 [...] lungs nightly. 12 g 3 06/04/2019 03/23/2021 albuterol (PROAIR HFA) 90 mcg/actuation HFA Aerosol Inhaler Inhale 2 puffs into the lungs every 4 hours as needed. Use with spacer 1 Inhaler 11 05/21/2019 10/27/2020 documented as of this encounter Plan of Treatment Not on file documented as of this encounter Procedures Procedure Name Priority Date/Time Associated Diagnosis Comments HC URINALYSIS ROUTINE Routine 10/14/2020 10:20 AM EDT Foul smelling urine CMP W/FASTING GLUCOSE Routine 10/14/2020 10:20 AM EDT Type 2 diabetes mellitus without complication, without long-term current use of insulin HEMOGRAM Routine 10/14/2020 10:20 AM EDT Iron deficiency anemia, unspecified iron deficiency anemia type DIFFERENTIAL, AUTOMATED Routine 10/14/2020 10:20 AM EDT Iron deficiency anemia, unspecified iron deficiency anemia type HC IRON BINDING CAPACITY Routine 10/14/2020 10:20 AM EDT Iron deficiency anemia, unspecified iron deficiency anemia type HC VITAMIN D TOTAL-25 HYDROXY Routine 10/14/2020 10:20 AM EDT Vitamin D deficiency HC CBC,PLT & AUTO DIFF Routine 10/14/2020 10:20 AM EDT Iron deficiency anemia, unspecified iron deficiency anemia type HC URINE CULTURE Routine 10/14/2020 10:2 0 AM EDT Foul smelling urine HC THYROID STIMULATING HORMONE, SERUM Routine 10/14/2020 10:20 AM EDT Hypothyroidism, acquired HC HEMOGLOBIN A1C Routine 10/14/2020 10: 20 AM EDT Type 2 diabetes mellitus without complication, without long-term current use of insulin HC FERRITIN, SERUM Routine 10/14/2020 10 :20 AM EDT Iron deficiency anemia, unspecified iron deficiency anemia type HC VITAMIN B12 SERUM Routine 10/14/2020 10:20 AM EDT Vitamin B12 deficiency documented in this encounter Results * (ABNORMAL) Differential, Automated (10/14/2020 10:20 AM EDT) Neutrophils % 69.9 % [facility] Neutr Abs (ANC) 6.91(H) 1.70 - 6.10 x10(3)/mc L [facility] Lymphocytes % 21.2 % [facility] Lymphocytes Abs 2.1 0.9 - 3.2 x10(3)/mc L [facility] Monocytes % 7.9 % [facility] Monocyte Abs 0.8 0.3 - 0.9 x10(3)/mc L [facility] Eosinophils % 0.5 % [facility] Eosinophils Abs 0.0 0.0 - 0.4 x10(3)/mc L [facility] Basophils % 0.4 % [facility] Basophils Abs 0.0 0.0 - 0.1 x10(3)/mc L [facility] Immature Gran % 0.10 % [facility] Comment: Immature granulocytes(IG's)percentage and absolute count will include metamyelocytes, myelocytes, and promyelocytes. Blood smears from CBCs yielding IG's will be scanned manually for concordance. If this scan disagrees with the automated IG or if promyelocytes are noted, a manual differential will be performed. Fartun Gran Abs 0.01 0.00 - 0.04 x10(3)/mc L [facility] Blood specimen (specimen) 10/14/2020 10:20 AM EDT 10/14/2020 11:15 AM EDT Narrative Resulting Agency Comment Spec In Lab Hoang Castellanos INTENSIVE CARE NURSE HEMATOLOGY ORDERABLE S Performing Organization Address City/[facility]/ZIP Co de Phone Number [facility] [address] [place] [address] * (ABNORMAL) Hemogram (10/14/2020 10:20 AM EDT) WBC 9.9(H) 4.0 - 9.5 x10(3)/mcL [facility] RBC 4.84 4.00 - 5.21 x10(6)/mcL [facility] Hemoglobin 14.6 11.7 - 15.5 gm/dL [facility] Hematocrit 45.7 35.7 - 45.8 % [facility] MCV 94.4 82.6 - 94.4 fL [facility] MCH 30.2 27.1 - 32.0 pg [facility] MCHC 31.9 31.7 - 35.0 gm/dL [facility] Platelets 241 145 - 357 x10(3)/mcL [facility] RDWSD 48.4(H) 37.0 - 46.0 fL [facility] RDWCV 13.7 11.5 - 14.1 % [facility] MPV 9.8 7.6 - 12.9 fL [facility] Blood specimen (specimen) 10/14/2020 10:20 AM EDT 10/14/2020 11:15 AM EDT Narrative Resulting Agency Comment Spec In Lab Hoang Trinidad Emanuel INTENSIVE CARE NURSE HEMATOLOGY ORDERABLE S Performing Organization Address City/[facility]/ZIP Co de Phone Number [facility] [address] [place] [address] * (ABNORMAL) CMP w/fasting Glucose (10/14/2020 10:20 AM EDT) [facility] Glucose Fasting 88 65 - 99 mg/dL [facility] Comment: ?Fasting* Glucose Interpretive Criteria Normal [...] of Diabetes Mellitus, Position Statement from the [place] [employer]. ??Diabetes Care, Volume 33, Supplement 1, Jul 2009 BUN 21(H) 8 - 18 mg/dL [facility] Creatinine 0.72 0.70 - 1.20 mg/dL [facility] Sodium 138 135 - 145 mmol/L [facility] Potassium 4.1 3.5 - 5.0 mmol/L [facility] Comment: Please note: ??Patients with WBC >100,000 may have falsely elevated Potassium levels. ??For accurate Potassium quantification in these patients send serum separator tube (gold top) for subsequent determinations. ??Contact the Clinical Chemistry Laboratory if there are any questions. Chloride 99 98 - 107 mmol/L [facility] CO2 28 22 - 31 mmol/L [facility] Anion Gap 11 5 - 15 mmol/L [facility] Calcium 9.5 8.5 - 10.5 mg/dL [facility] Total Protein 6.9 6.1 - 8.0 gm/dL [facility] Albumin 4.1 3.2 - 5.2 gm/dL [facility] AST 11 0 - 30 unit/L [facility] ALT 6 0 - 30 unit/L [facility] Alk Phos 108(H) 35 - 105 unit/L [facility] Total Bilirubin 0.3 0.2 - 1.3 mg/dL [facility] Estimated GFR 91 >=60 mL/min/1. 73 m?? [facility] Comment: This patient? s estimated glomerular filtration rate (eGFR) is between 91 mL/min/1.73 m2 (patients with less muscle mass per kg body weight) and 105 mL/min/1.73 m2 (patients with more muscle mass [...] and symptoms in addition to eGFR. Blood specimen (specimen) 10/14/2020 10:20 AM EDT 10/14/2020 1:58 PM EDT Narrative Resulting Agency Comment Spec In Lab Hoang Castellanos INTENSIVE CARE NURSE CHEMISTRY ORDERABLES Performing Organization Address [facility] Co de Phone Number [facility] [address] [place] [address] * (ABNORMAL) Hemoglobin A1c (10/14/2020 10:20 AM EDT) Hemoglobin A1C 5.7(H) 4.3 - 5.6 % [facility] Est Avg Gluc 117 mg/dL [facility] Blood specimen (specimen) 10/14/2020 10:20 AM EDT 10/14/2020 11:15 AM EDT Narrative Resulting Agency Comment Spec In Lab Hoang Castellanos INTENSIVE CARE NURSE CHEMISTRY ORDERABLES Performing Organization Address [facility] Co de Phone Number [facility] [address] [place] [address] * TSH (10/14/2020 10:20 AM EDT) TSH 1.96 0.27 - 4.20 mcIU/mL [facility] Blood specimen (specimen) 10/14/2020 10:20 AM EDT 10/14/2020 11:15 AM EDT Narrative Resulting Agency Comment Spec In Lab Hoang Castellanos INTENSIVE CARE NURSE CHEMISTRY ORDERABLES Performing Organization Address City/[facility] Co de Phone Number [facility] [address] [place] [address] * Ferritin (10/14/2020 10:20 AM EDT) Pathologist [facility] Ferritin 60 30 - 400 ng/mL [facility] Comment: Pediatric reference ranges not verified at [facility], interpret with caution. Reference ranges for females greater than 50 years of age approach values for men, i.e., 30-400 ng/mL. Blood specimen (specimen) 10/14/2020 10:20 AM EDT 10/14/2020 11:15 AM EDT Narrative Resulting Agency Comment Spec In Lab Hoang Castellanos INTENSIVE CARE NURSE CHEMISTRY ORDERABLES Performing Organization Address [facility] Co de Phone Number [facility] [address] [place] [address] * Iron and TIBC (10/14/2020 10:20 AM EDT) [facility] Iron 67 30 - 150 mcg/dL [facility] TIBC 342 250 - 450 mcg/dL [facility] Iron Saturation 20 20 - 50 [facility] Blood specimen (specimen) 10/14/2020 10:20 AM EDT 10/14/2020 1:58 PM EDT Narrative Resulting Agency Comment Spec In Lab Hoang Castellanos INTENSIVE CARE NURSE CHEMISTRY ORDERABLES Performing Organization Address City/[facility]/ZIP Co de Phone Number [facility] [address] [place] [address] * Vitamin D, 25-Hydroxy (10/14/2020 10:20 AM EDT) 25-OH Vit D Total 54 21 - 100 ng/mL [facility] 25-OH Vit D Interp Sufficient [facility] Blood specimen (specimen) 10/14/2020 10:20 AM EDT 10/14/2020 4:28 PM EDT Narrative Resulting Agency Comment Spec In Lab Hoang Castellanos INTENSIVE CARE NURSE CHEMISTRY ORDERABLES Performing Organization Address City/[facility]/ZIP Co de Phone Number [facility] [place] [address] * Vitamin B12 (10/14/2020 10:20 AM EDT) Vitamin B-12 1,085 232 - 1,245 pg/mL [facility] Blood specimen (specimen) 10/14/2020 10:20 AM EDT 10/14/2020 4:28 PM EDT Narrative Resulting Agency Comment Spec In Lab Hoang Castellanos INTENSIVE CARE NURSE CHEMISTRY ORDERABLES Performing Organization Address City/[facility] Co de Phone Number [facility] [place] [address] * (ABNORMAL) _Urinalysis with microscopic (10/14/2020 10:20 AM EDT) Glucose UA Negative Negative [facility] Protein UA Negative Negative [facility] Bilirubin UA Negative Negative [facility] Comment: Clinical correlation required for positive Urine Bilirubin results as false positive may occur with some drugs and drug related products. If a false positive is suspected a serum total bilirubin should be considered if clinically indicated. Urobilinogen UA Normal Normal mg/dL [facility] pH UA 6.5 5.0 - 8.0 [facility] Blood UA Moderate(A) Negative [facility] Ketones UA Negative Negative [facility] Nitrite UA Negative Negative [facility] Leukocytes UA Small(A) Negative [facility] Appearance UA Slightly Cloudy [facility] Spec [place]ord UA 1.020 1.006 - 1.030 [facility] Color UA Yellow Yellow [facility] RBC UA 20(H) 0 - 4 /HPF [facility] WBC UA 10(H) 0 - 5 /HPF [facility] Bacteria UA Occasional( A) None /HPF [facility] Yeast [place] UA Occasional( A) None /HPF [facility] Trans Epith UA 2(H) <=1 /HPF [facility] CaOx Nadia UA Rare(A) None /HPF [facility] Urine specimen (specimen) 10/14/2020 10:20 AM EDT 10/14/2020 11:15 AM EDT Narrative Resulting Agency Comment Spec In Lab Hoang Castellanos INTENSIVE CARE NURSE URINE ORDERABLES Performing Organization Address City/[facility]/ZIP Co [place] [address] * (ABNORMAL) Urine culture Clean Catch Urine (10/14/2020 10:20 AM EDT) Urine Culture 50,000-99,000 cfu/ml mixed mucosal jan Note: Culture shows multiple bacterial species suggesting mucosal contamination. If symptoms continue to indicate urinary tract infection, submit a new specimen. (A) [facility] Urine specimen obtained by clean catch procedure (specimen) 10/14/2020 10:20 AM EDT 10/14/2020 4:00 PM EDT Narrative Resulting Agency Comment Spec In Lab Hoang Castellanos APRN MICROBIOLOGY - GENER AL ORDERABLES Performing Organization Address City/[facility]/ZIP Co de Phone Number [facility] [place] [address] documented in this encounter Visit Diagnoses Diagnosis Foul smelling urine Other nonspecific finding on examination of urine Vitamin B12 deficiency Other B-complex deficiencies Vitamin D deficiency Unspecified vitamin D deficiency Iron deficiency anemia, unspecified iron deficiency anemia type Hypothyroidism, acquired Unspecified hypothyroidism Type 2 diabetes mellitus without complication, without long-term current use of insulin documented in this encounter Care Teams Lumber Tallier Relationship Specialty Start Date End Date Hoang Castellanos APRN [address] [facility] [address] PCP - General Family Medicine 03/12/20 documented as of this encounter
--- OUTSIDE RECORDS SUMMARY | 2024-02-22 00:51 | XMS_ITS | Encounter Summary ---
Author Organization [facility], 1928–[address] [place] [address] Care Team Providers Care Clin Nurse Spec Name Role Phone Hoang Castellanos APRN Primary Care Provider Reason for Visit * Reason Comments Medication Refill Encounter Details Date Type Department Care Team (Late st Contact Info) Description 10/27/2020 Refill Primary Care at [facility] [address] [facility] [place] [phone] Hoang Castellanos APRN [address] [place] [address] Social History Tobacco Use Types Packs/Day Years [...] encounter Miscellaneous Notes * Telephone Encounter - Ayde Babin RN - 10/27/2020 4:17 PM EDT Last Related Office Visit: 10/10/2020 Upcoming Appointment: 11/10/2020 - Per PCP return in about 4 weeks (around 11/07/2020) for in person or tele health Requested Prescriptions Pending Prescriptions Disp Refills ??? prazosin (Minipress) 2 mg Capsule [Pharmacy Med Name: Prazosin HCl 2 MG Capsule] 84 each 11 Sig: TAKE THREE (3) CAPSULES BY MOUTH DAILY AT BEDTIME Last Prescription Fill Date: 03/27/2020 Number Dispensed and Refills: ? Lab Results Component Value Date HGB 14.6 [...] on filedocumented in this encounter Care Teams Clin Nurse Spec Relationship Specialty Start Date End Date Hoang Castellanos APRN [address] [place] [address] PCP - General Family Medicine 03/12/20 documented as of this encounter
--- OUTSIDE RECORDS SUMMARY | 2024-02-22 00:51 | XMS_ITS | Encounter Summary ---
Author Organization [facility] [address] Care Team Providers Care Manager Alliance Name Role Phone Hoang Castellanos APRN Primary Care Provider [phone] Encounter Details Date Type Department Care Team (Late st Contact Info) Description 12/10/2020 Telephone Primary Care at [facility] [address] [facility] [place] [phone] Alva Castellanos LPN Social History Tobacco Use Types Packs/Day Years [...] Telephone Encounter - Alva Castellanos LPN - 12/10/2020 8:41 AM EDT I spoke with Jeannie this morning. She did not go to the ER, she said she has PTSD and could not go to the ER. Jeannie states she she has had balance, breathing issues, migraine, amnd dizziness for months. She states the dizziness has gotten better. She denies any drooping, no flashes of light. She states she can't see her fingers through her right eye. I explained she should see an Barker Peeler, I gave her a number for [facility].That is where she wanted to go. I told her to leave a message with their answering service. She asked about keeping the appointment today, I told her she needs to see the Barker Peeler hopefully this morning. documented in this encounter Plan of Treatment Not on file documented as of this encounter Visit Diagnoses Not on filedocumented in this encounter Care Teams Manager Alliance Relationship Specialty Start Date End Date Hoang Castellanos, EMERGENCY PLANNING AND RESPONSE MANAGER [address] [place] [address] PCP - General Family Medicine 03/12/20 documented as of this encounter
--- OUTSIDE RECORDS SUMMARY | 2024-02-22 00:51 | XMS_ITS | Encounter Summary ---
[place] [address] Care Team Providers Care Fur Remodeler Name Role Phone Hoang Castellanos APRN Primary Care Provider [phone] Encounter Details Date Type Department Care Team (Late st Contact Info) Description 12/09/2020 Telephone Primary Care at [facility] [address] [facility] [place] [phone] Hoang Castellanos APRN [address] [place] [address] Social History Tobacco Use Types Packs/Day Years [...] Telephone Encounter - Minerva Calderón RN - 12/09/2020 5:01 PM EDT TRAIN STATION SERVER came to triage office to report patient is scheduled for OV tomorrow for loss of sight right eye, PMH DM. She states per provider Anthony Carrington APRN, patient needs to be triaged further for stroke assessment. Call to patient for further triage. Left detailed VM to call provider operations and maintenance supervisor via answering servicefor further triage. Advised DH ED or call 911 if sudden partial or total vision loss, change in speech, weakness, facial droop, confusion, dizziness. ED for severe eye pain. Will send myDH message as well. documented in this encounter Plan of Treatment Not on file documented as of this encounter Visit Diagnoses Not on filedocumented in this encounter Care Teams Fur Remodeler Relationship Specialty Start Date End Date Hoang Castellanos, RN OR LPN [address] [place] [address] PCP - General Family Medicine 03/12/20 documented as of this encounter
--- OUTSIDE RECORDS SUMMARY | 2024-02-22 00:51 | XMS_ITS | Encounter Summary ---
[place] [address] Care Team Providers Care Helpdesk Specialist Name Role Phone Hoang Castellanos APRN Primary Care Provider Reason for Visit * Reason Onset Date Comments Results 10/14/2020 Encounter Details Date Type Department Care Team (Late st Contact Info) Description 10/14/2020 Telephone Primary Care at [facility] [address] [facility] [place] [phone] Shannon Chung, RN Results Social History Tobacco Use Types Packs/Day Years [...] encounter Miscellaneous Notes * Addendum Note - Shannon Chung RN - 10/16/2020 5:16 PM EDTAddended by: SHANNON CHUNG on: 10/16/2020 05:16 PM Modules accepted: Orders * Telephone Encounter - Shannon Chung RN - 10/16/2020 5:16 PM EDT Pt notified. * Telephone Encounter - Shannon Chung RN - 10/16/2020 5:14 PM EDT Hoang Castellanos APRN to Me ?? 9:32 AM Please inform patient that her labs were normal. ??No anemia and her electrolytes were normal. We will plan to start amlodipine 5 mg daily as recommended by cardiology since her electrolytes arenormal. ??I will send a prescription. Please also inform patient that she can call [facility] to start the process for EMS transportation to appointments. ??They will likely need us to fill out a form stating that she is homebound/wheelchair-bound but she or her helper kalin Polanco can start the process. Thanks * Telephone Encounter - Shannon Chung RN - 10/16/2020 8:35 AM EDT Pt notified of results. Patient asking if blood work showed anything significant. * Telephone Encounter - Shannon Chung RN - 10/16/2020 8:34 AM EDT Images from the original note were not included. Message Received: Yesterday Message Contents Hoang Castellanos APRN P [facility] Primary Care Nurse Please inform patient of abnormal lab results. ??Urine culture suggest contamination. ??If she is not feeling better on Macrobid then we need to recollect sample. * Telephone Encounter - Shannon Chung RN - 10/14/2020 2:24 PM EDT Pt notified. * Telephone Encounter - Shannon Chung RN - 10/14/2020 2:21 PM EDT ----- Message from Hoang Castellanos APRN sent at 10/14/2020 12:32 PM EDT ----- Please inform patient of abnormal lab results. UA positive for signs of UTI. Will treat with macrobid. documented in this encounter Plan of Treatment Not on file documented as of this encounter Visit Diagnoses Not on filedocumented in this encounter Care Teams Helpdesk Specialist Relationship Specialty Start Date End Date Hoang Castellanos APRN [address] [place] [address] PCP - General Family Medicine 03/12/20 documented as of this encounter
--- OUTSIDE RECORDS SUMMARY | 2024-02-22 00:51 | XMS_ITS | Encounter Summary ---
[place] [address] Care Team Providers Care Facility Practice Specialist Name Role Phone Hoang Castellanos APRN Primary Care Provider Encounter Details Date Type Department Care Team (Late st Contact Info) Description 12/09/2020 Telephone Primary Care at [facility] [address] [place] [phone] Ananth Wilson MD 10 [facility] [place] [address] Social History Tobacco Use Types Packs/Day Years [...] encounter Miscellaneous Notes * Telephone Encounter - Ananth Wilson MD - 12/09/2020 7:22 PM EDT After hours on-call note: Patient demographics: 60 y.o. female Date: 12/09/20 Time: 7:22 PM Caller: self Phone number: [phone] Primary care provider: Hoang Castellanos APRN Reason for call (on pager): loss of vision right eye. Details of call: States she lost almost all her vision in the right eye about a week ago but only called to get an appt. With Hoang Castellanos for tomorrow. States she can see some light through the eye but otherwise nothing; can't see her fingers in front of her face. Assessment: Acute loss of vision , right eye, apparently occurring about a week ago. I informed her that sudden loss of vision in an eye is a medical emergency and urged her to get a ride up to the emergency room for further evaluation. Plan: Recommended going to the emergency room for further evaluation. documented in this encounter Plan of Treatment Not on file documented as of this encounter Visit Diagnoses Not on filedocumented in this encounter Care Teams Facility Practice Specialist Relationship Specialty Start Date End Date Hoang Castellanos APRN [address] [place] [address] PCP - General Family Medicine 03/12/20 documented as of this encounter
--- OUTSIDE RECORDS SUMMARY | 2024-02-22 00:51 | XMS_ITS | Encounter Summary ---
[place] [address] Care Team Providers Care Supervisor Patching Name Role Phone Hoang Castellanos APRN Primary Care Provider Encounter Details Date Type Department Care Team (Late st Contact Info) Description 12/17/2020 Telephone Primary Care at [facility] [address] [place] [phone] Jeannie Luciano, RN Social History Tobacco Use [...] Telephone Encounter - Jeannie Luciano RN - 12/17/2020 3:27 PM EDT ----- Message from Hoang Castellanos APRN sent at 12/17/2020 3:23 PM EDT ----- She needs order for compression stockings sent to DME-thanks documented in this encounter Plan of Treatment Not on file documented as of this encounter Visit Diagnoses Diagnosis Bilateral leg edema Edema Type 2 diabetes mellitus without complication, without long-term current use of insulin documented in this encounter Care Teams Supervisor Patching Relationship Specialty Start Date End Date Hoang Castellanos, WRAPPING MACHINE TENDER [address] [place] [place] [address] PCP - General Family Medicine 03/12/20 documented as of this encounter
--- OUTSIDE RECORDS SUMMARY | 2024-02-22 00:51 | XMS_ITS | Encounter Summary ---
[place] [address] Care Team Providers Care Elephant Keeper Name Role Phone Hoang Castellanos APRN Primary Care Provider Encounter Details Date Type Department Care Team (Late st Contact Info) Description 10/13/2020 Telephone Primary Care at [facility] 10 [place] [phone] Shannon Cruz, RN Social History Tobacco Use [...] Telephone Encounter - Shannon Cruz RN - 10/13/2020 11:06 AM EDT Collette RN called from [facility] in regards to Jeannie Lawson Trisha. She is asking if patient needs labs and urine. Let nurse know we needed both. documented in this encounter Plan of Treatment Not on file documented as of this encounter Visit Diagnoses Not on filedocumented in this encounter Care Teams Elephant Keeper Relationship Specialty Start Date End Date Hoang Castellanos, REPAIR CLERK [address] [place] [address] PCP - General Family Medicine 03/12/20 documented as of this encounter
--- OUTSIDE RECORDS SUMMARY | 2024-02-22 00:51 | XMS_ITS | Encounter Summary ---
Author Organization [facility] [place] [address] Care Team Providers Care Leveling Machine Operator Name Role Phone Hoang Castellanos APRN Primary Care Provider Encounter Details Date Type Department Care Team (Latest Contact Info) Description 10/10/2020 1:00 PM EDT TH Visit (TeleHealth) Primary Care at [facility] 10 [facility] [place] [phone] Hoang Castellanos APRN [address] [facility] [place] [address] Type 2 diabetes mellitus without complication, without long-term current use of insulin; Benign essential hypertension; Dizziness; Hypothyroidism, acquired; Vitamin B12 deficiency; Vitamin D deficiency; Iron deficiency anemia, unspecified iron deficiency anemia type Social History Tobacco Use Types Packs/Day [...] of this encounter Progress Notes * Hoang Castellanos APRN - 10/10/2020 1:00 PM EDT [facility] Telehealth Encounter Nurse Call: Patient called to notify of telehealth visit in lieu of office/home visit due to public health emergency. For patients in facilities or with caregivers, these were also notified. BEST PHONE NUMBER: Is this a cell phone number: no Patient or family advised that telehealth visit will be conducted similar to office/home visit and may ultimately be billable. Patient or family agrees to visit: yes If yes, given time window for the telehealth visit. Chief complaint entered. High Blood pressure and dizziness, and concentrated urine with an odor. Patient denies pain with urination, no fever, back pain or flank, voiding normal amounts. Dizziness is really bad that's why I can't come in Physical therapy comes to the house and I am dragging my leg. Physical therapy have been checking my blood pressure and it's been high 190's / 90's. My heart doctor is sending a monitor. Medications and allergies reconciled. Patient states she just takes what the pharmacy sends her. Patient advised to check vital signs prior to visit to report to provider if possible (for patientsin facility setting, nursing staff asked to obtain vitals in advance). VNArjun is coming to house for physical therapy and checks her blood pressure every two weeks, only have one more visit. Subjective: HPI: Jeannie Rico is a 60 y.o. female Due to public health emergency this visit was conducted as a telehealth encounter. Confirmed that patient consents to visit. Dizziness Chronic Feels like the room is spinning when she stands up Feels like she is going to fall over Falling almost every day Dizzy almost constantly Using a walker at home-has a wheelchair, getting a ramp and travel size iaooter [facility] with Cardiology on 10/01-Dr. Timothy Haynes Planning to do Zio patch and Echo RECOVER program in [facility] helping her build a ramp Right now has [employer] Right ankle sprain in June Right leg catches, unable to flex the leg Minimal back pain, but more arm pain J managing back/arm pain No numbness/tingling down legs, but swelling more Tingling in fingers on both hands Right leg feels heavy and weak, unable to pick it up and move it Weekly P.T.-not progressing HH has been ordered for BP monitoring and med management Pain on left side of pelvis Intermittent sharp pain, improves with BM No hx of diverticulitis Bowel/bladder incontinence-BM 1-2 times per day Fecal incontinence x1 mo Concentrated urinary odor Objective: VS: Exam Constitutional: General: she is not in acute distress. Neurological: Mental Status: she is alert and oriented to person, place, and time. Psychiatric: Mood: Normal. Judgment: Normal. Assessment and Plan: Diagnoses and all orders for this visit: Type 2 diabetes mellitus without complication, without long-term current use of insulin - CMP w/fasting Glucose; Future - Hemoglobin A1c; Future Benign essential hypertension - amLODIPine (Norvasc) 5 mg Tablet; Take 1 tablet by mouth daily. Dizziness Hypothyroidism, acquired - TSH; Future Vitamin B12 deficiency - Vitamin B12; Future Vitamin D deficiency - Vitamin D, 25-Hydroxy; Future Iron deficiency anemia, unspecified iron deficiency anemia type - CBC (with Diff); Future - Ferritin; Future - Iron and TIBC; Future Medication ordered or changed during this encounter, will not show discontinued medications Medications ??? amLODIPine (Norvasc) 5 mg Tablet Sig: Take 1 tablet by mouth daily. Dispense: 90 tablet Refill: 3 Nursing: Please d/c Plavix, Tizanidine and Meloxicam with pharmacy. Will add amlodipine 5 mg daily per recommendation of Cardiology as well as electrolytes and labs are normal. Will order CBC, CMP, orthostatic vital signs per home health nurse. Patient with UTI symptoms. Will ask nursing to collect UA for further evaluation. Treatment pendingresults. Patient has been homebound due to leg and ankle pain. She has home health PT working with her but she is unable to ambulate down steps. She is also a very high fall risk. She was instructed to call [employer] to start working with them for EMS transportation to appointments. They should be able to help her in and out of her house as she is unable to ambulate the steps. Follow-up: Return in about 4 weeks (around 11/07/2020) for Either In Person or Telehealth. Total time spent in telehealth encounter: 30 minutes documented in this encounter Plan of Treatment Not on file documented as of this encounter Results * Vitamin B12 (10/14/2020 10:20 AM EDT) Vitamin B-12 1,085 232 - 1,245 pg/mL [facility] Blood specimen (specimen) 10/14/2020 10:20 AM EDT 10/14/2020 4:28 PM EDT Narrative Resulting Agency Comment Spec In Lab Hoang Castellanos APRN CHEMISTRY ORDERABLES [facility] [place] [address] * Vitamin D, 25-Hydroxy (10/14/2020 10:20 AM EDT) 25-OH Vit D Total 54 21 - 100 ng/mL [facility] 25-OH Vit D Interp Sufficient [facility] Blood specimen (specimen) 10/14/2020 10:20 AM EDT 10/14/2020 4:28 PM EDT Narrative Resulting Agency Comment Spec In Lab Hoang Castellanos APRN CHEMISTRY ORDERABLES Performing Organization Address City/[facility]/ZIP Co de Phone Number [facility] [place] [address] * Iron and TIBC (10/14/2020 10:20 AM EDT) Iron 67 30 - 150 mcg/dL [facility] TIBC 342 250 - 450 mcg/dL [facility] Iron Saturation 20 20 - 50 % [facility] Blood specimen (specimen) 10/14/2020 10:20 AM EDT 10/14/2020 1:58 PM EDT Narrative Resulting Agency Comment Spec In Lab Hoang Castellanos APRN CHEMISTRY ORDERABLES [facility] [address] [place] [address] * Ferritin (10/14/2020 10:20 AM EDT) Ferritin 60 30 - 400 ng/mL [facility] Comment: Pediatric reference ranges not verified at [facility], interpret with caution. Reference ranges for females greater than 50 years of age approach values for men, i.e., 30-400 ng/mL. Blood specimen (specimen) 10/14/2020 10:20 AM EDT 10/14/2020 11:15 AM EDT Narrative Resulting Agency Comment Spec In Lab Hoang Castellanos APRN CHEMISTRY ORDERABLES Performing Organization Address City/[facility]/ZIP Co de Phone Number [facility] [address] [place] [address] * TSH (10/14/2020 10:20 AM EDT) [facility] TSH 1.96 0.27 - 4.20 mcIU/mL [facility] Blood specimen (specimen) 10/14/2020 10:20 AM EDT 10/14/2020 11:15 AM EDT Narrative Resulting Agency Comment Spec In Lab Hoang Castellanos APRN CHEMISTRY ORDERABLES Performing Organization Address [facility] Co de Phone Number [facility] [address] [place] [address] * (ABNORMAL) Hemoglobin A1c (10/14/2020 10:20 AM EDT) [facility] Hemoglobin A1C 5.7(H) 4.3 - 5.6 % [facility] Est Avg Gluc 117 mg/dL [facility] Blood specimen (specimen) 10/14/2020 10:20 AM EDT 10/14/2020 11:15 AM EDT Narrative Resulting Agency Comment Spec In Lab Hoang Castellanos MEASURER MACHINE CHEMISTRY ORDERABLES Performing Organization Address [facility] Co de Phone Number [facility] [address] [place] [address] * (ABNORMAL) CMP w/fasting Glucose (10/14/2020 10:20 AM EDT) [facility] Glucose Fasting 88 65 - 99 mg/dL [facility] Comment: ?Fasting* Glucose Interpretive [...] of Diabetes Mellitus, Position Statement from the [place] [employer]. ??Diabetes Care, Volume 33, Supplement 1, Jul 2009 BUN 21(H) 8 - 18 mg/dL [facility] Creatinine 0.72 0.70 - 1.20 mg/dL [facility] Sodium 138 135 - 145 mmol/L [facility] Potassium 4.1 3.5 - 5.0 mmol/L [facility] Comment: Please note: ??Patients with WBC >100,000 may have falsely elevated Potassium levels. ??For accurate Potassium quantification in these patients send serum separator tube (gold top) for subsequent determinations. ??Contact the Clinical Chemistry Laboratory if there are any questions. Chloride 99 98 - 107 mmol/L [facility] CO2 28 22 - 31 mmol/L [facility] Anion Gap 11 5 - 15 mmol/L [facility] Calcium 9.5 8.5 - 10.5 mg/dL [facility] Total Protein 6.9 6.1 - 8.0 gm/dL [facility] Albumin 4.1 3.2 - 5.2 gm/dL [facility] AST 11 0 - 30 unit/L [facility] ALT 6 0 - 30 unit/L [facility] Alk Phos 108(H) 35 - 105 unit/L [facility] Total Bilirubin 0.3 0.2 - 1.3 mg/dL [facility] Estimated GFR 91 >=60 mL/min/1. 73 m?? [facility] Comment: This patient? s estimated glomerular [...] Castellanos APRN CHEMISTRY ORDERABLES Performing Organization Address City/State/[facility] Co de Phone Number [facility] [address] [place] [address] documented in this encounter Visit Diagnoses Diagnosis Type 2 diabetes mellitus without complication, without long-term current use of insulin Benign essential hypertension Essential hypertension, benign Dizziness Dizziness and giddiness Hypothyroidism, acquired Unspecified hypothyroidism Vitamin B12 deficiency Other B-complex deficiencies Vitamin D deficiency Unspecified vitamin D deficiency Iron deficiency anemia, unspecified iron deficiency anemia type documented in this encounter Care Teams Leveling Machine Operator Relationship Specialty Start Date End Date Hoang Castellanos APRN [address] [place] [address] PCP - General Family Medicine 03/12/20 documented as of this encounter
--- OUTSIDE RECORDS SUMMARY | 2024-02-22 00:51 | XMS_ITS | Encounter Summary ---
Author [facility] [place] [address] Care Team Providers Care Card Room Manager Name Role Phone Hoang Castellanos APRN Primary Care Provider Encounter Details Date Type Department Care Team (Late st Contact Info) Description 10/14/2020 Orders Only Primary Care at [facility] 10 [place] [phone] Hoang Castellanos APRN 10 [facility] [place] [address] Acute cystitis with hematuria Social History Tobacco Use Types Packs/Day Years [...] as of this encounter Visit Diagnoses Diagnosis Acute cystitis with hematuria Acute cystitis documented in this encounter Care Teams Card Room Manager Relationship Specialty Start Date End Date Hoang Castellanos APRN [address] [facility] [place] [address] PCP - General Family Medicine 03/12/20 documented as of this encounter
--- OUTSIDE RECORDS SUMMARY | 2024-02-22 00:51 | XMS_ITS | Encounter Summary ---
Author Organization [facility] [place] [address] Care Team Providers Care Therapist Asst Name Role Phone Hoang Castellanos APRN Primary Care Provider Reason for Referral * Consultation (Routine) - Closed Specialty Diagnoses / Procedures Referred By Contac t Referred To Contact Orthopaedics Diagnoses Chronic pain of right ankle Hoang Castellanos APRN [address] [place] [address] [facility] [address] [place] [address] Referral ID Status Reason Start Date Expiration Date V isits Requested Visits Authorized [id number] Closed Specialty Service Requested 12/17/2020 12/17/2021 12 12 * Consultation (Routine) - Closed Specialty Diagnoses / Procedures Referred By Contac t Referred To Contact Neurology Diagnoses Right leg weakness Dizziness Hoang Castellanos APRN [address] [place] [address] [facility] [address] [place] [phone] Referral ID Status Reason Start Date Expiration Date V isits Requested Visits Authorized [id number] Closed Specialty Service Requested 12/17/2020 12/17/2021 12 12 Reason for Visit * Reason Comments Hypertension Diabetes Encounter Details Date Type Department Care Team (Late st Contact Info) Description 12/15/2020 1:30 PM EDT Office Visit Primary Care at [facility] 10 [facility] [place] [address] Hoang Castellanos, SAM [address] [place] [address] Benign essential hypertension; Cataract of right eye, unspecified cataract type; Type 2 diabetes mellitus without complication, without long-term current use of insulin; Right leg weakness; Dizziness; Chronic pain of right ankle; Bilateral leg edema Social History Tobacco Use Types Packs/Day Years [...] Sign Reading Time Taken Comments Blood Pressure 100/60 12/15/2020 1:13 PM EDT Pulse 60 12/15/2020 1:13 PM EDT Temperature - - Respiratory Rate - - Oxygen Saturation 96% 12/15/2020 1:13 PM EDT Inhaled Oxygen Concentration - - Weight 98.6 kg (217 lb 6.4 oz) 12/15/2020 1:13 P M EDT Height 162.6 cm (5' 4.02) 12/15/2020 1:13 PM ED T Body Mass Index 37.3 12/15/2020 1:13 PM EDT documented in this encounter Progress Notes * Hoang Castellanos, SAM - 12/15/2020 1:30 PM EDT Subjective: HPI: Jeannie Rico is a 60 y.o. female presenting to the [facility] Primary Care Clinic Patient Due For: 1. DM Ophthalmology Exam 2. DM Urine Microalbumin (Yearly) 3. Hepatitis C Screening 4. HIV Screening 5. Breast Cancer Share Decision 6. Breast Cancer Screening 7. HPV Testing 8. Pap Smear 9. Colonoscopy Has a hard time walking and breathing. Had a fall in the beginning of June and now has difficulty lifting one of her feet up to walk. Needs help walking. Did PT without much help from the sessions. Right leg weakness, drop foot since approx 07/2019 Led to a fall x2 Right foot/ankle pain s/p sprain 06/2020-P.T. helped S/p injury on 07/03/20 Has a ramp and scooter now so getting more mobile Lumbar pain-MRI 01/2020 Pain is from neck to tailbone Needs to use a walker for ambulation Vision loss eval with Optometry, diagnsoed with dense cataract Awaiting appt at [facility] Right wrist pain Hx of fracture 02/05/[address] Hernandez Hypertension: Currently taking: Amlodipine started in September, Lisinopril Checking blood pressure at home: No Following a low salt diet: no, does not add salt Exercising: No Scheduled for Echo and Cardiology f/u on 01/07 Has lost 19 lbs Swelling in both ankles Dizziness-would like to go back to Neurology again Hx ICH 2004 MRI brain 09/16/20-negative Diabetes patient does not check sugars She has not had symptomatic high/low blood sugars. She has; is working on it been following a carbohydrate controlled diet. She does not drink sweetened beverages. She states she does not exercise regularly. COPD Increased SOB with mask on PTSD R/t ER visits-goes back to childhood Also has concerns about transportation/finances when going to ER Better tolerates daytime ER visits Objective: VS: BP 100/60 Pulse 60 Ht 162.6 cm (5' 4.02) Wt 98.6 kg (217 lb 6.4 oz) LMP (LMP Unknown) SpO2 96% BMI 37.30 kg/m?? Physical Exam Vitals reviewed. Constitutional: General: [...] normal. Breath sounds: Normal breath sounds. Musculoskeletal: Lumbar back: Normal. Negative right straight leg raise test and negative left straight leg raise test. Right lower le+ Edema present. Left lower le+ Edema present. Skin: General: Skin is warm and dry. Capillary Refill: Capillary refill takes less than 2 seconds. Neurological: Mental Status: She is alert and oriented to person, place, and time. Motor: Weakness (RLE) present. Deep Tendon Reflexes: Reflex Scores: Patellar reflexes are 2+ on the right side and 2+ on the left side. Psychiatric: Attention and Perception: Attention normal. Mood and Affect: Mood and affect normal. Behavior: Behavior normal. Behavior is cooperative. Thought Content: Thought content normal. Judgment: Judgment normal. Assessment and Plan: Jeannie was seen today for hypertension and diabetes. Diagnoses and all orders for this visit: Benign essential hypertension Cataract of right eye, unspecified cataract type Type 2 diabetes mellitus without complication, without long-term current use of insulin Right leg weakness - Referral to Neurology Dizziness - Referral to Neurology Chronic pain of right ankle - Referral to Orthopaedics Bilateral leg edema Blood pressure currently well controlled, happy with addition of amlodipine, although she is noticing some bilateral lower extremity edema. She is comfortable with this side effect for this moment. She has follow-up with cardiology in 01/07. She was instructed to wear compression stockings for mild e jaya. Diabetes is currently well controlled with A1c of 5.7. Cataract of right eye diagnosed by optometry. She will have a follow-up appointment with ophthalmology. Patient with long history of dizziness. She also reports right leg weakness and has difficulty doing straight leg raises result. She had normal brain MRI in August. She was previously referred to neurology in the fall however was unable to make the appointment due to difficulty with mobility and t ransportation. Will complete subsequent referral today. Chronic right wrist and ankle pain. She has decreased dorsiflexion of right ankle and difficulty bearing full weight status post ankle sprain 06/2020 and physical therapy. Will refer to Ortho for further evaluation. There are no Patient Instructions on file for this visit. FOLLOWUP: Return in about 3 months (around 03/17/2021) for In Person HTN, etc.. documented in this encounter Plan of Treatment Scheduled Referrals Name Type Priority Associated Diagnoses Order Schedule Referral to Neurology Outpatient Referral Routine Right leg weakness Dizziness Ordered: 12/17/2020 Referral to Orthopaedics Outpatient Referral Routine Chronic pain of right ankle Ordered: 12/17/2020 documented as of this encounter Visit Diagnoses Diagnosis Benign essential hypertension Essential hypertension, benign Cataract of right eye, unspecified cataract type Type 2 diabetes mellitus without complication, without long-term current use of insulin Right leg weakness Other musculoskeletal symptoms referable to limbs Dizziness Dizziness and giddiness Chronic pain of right ankle Bilateral leg edema Edema documented in this encounter Care Teams Therapist Asst Relationship Specialty Start Date End Date Hoang Castellanos APRN [address] [place] [place] [address] PCP - General Family Medicine 03/12/20 documented as of this encounter
--- OUTSIDE RECORDS SUMMARY | 2024-02-22 00:51 | XMS_ITS | Encounter Summary ---
Author Organization Formerly [facility], [facility] [place] [address] Care Team Providers Care Lens Gauger Name Role Phone Hoang Castelalnos APRN Primary Care Provider [phone] Reason for Visit * Reason Comments Medication Refill Encounter Details Date Type Department Care Team (Late st Contact Info) Description 10/27/2020 Refill Primary Care at [facility] [address] [place] [phone] Hoang Castellanos APRN [address] [facility] [place] [address] Chronic obstructive pulmonary disease, unspecified COPD type Social History Tobacco Use Types Packs/Day [...] Telephone Encounter - Shannon Cruz RN - 10/27/2020 11:06 AM EDT PCP: Hoang Castellanos APRN Medication: Requested Prescriptions Pending Prescriptions Disp Refills ??? Ventolin HFA 90 mcg/actuation HFA Aerosol Inhaler [Pharmacy Med Name: Ventolin HFA 108 (90 Base) MCG/ACT Aerosol, solution] 18 g 11 Sig: INHALE 1 TO 2 PUFFS EVERY SIX HOURS NEEDED *CALL TO REFILL* Last Appt: 10/10/2020 Future Appt: 11/10/2020 Pharmacy: [facility] Last rx: 05/21/2019: 1 inhaler,, 11 refills Protocol: MEDICATION CLASS: Asthma/COPD Advair discus Aerobid Albuterol Atrovent Azmacort Cromolyn Duoneb Flovent Maxair Proventil Pulmicort Flexhaler (powder) Pulmicort Respules (susp) Serevent Singulair Spiriva Ventolin HFA Xopenex Protocol: Office visit within past year (asthma or COPD addressed) Consult provider if requires > one inhaler in < 1 month Refill: Till next appt documented in this encounter Plan of Treatment Not on file documented as of this encounter Visit Diagnoses Diagnosis Chronic obstructive pulmonary disease, unspecified COPD type documented in this encounter Care Teams Lens Gauger Relationship Specialty Start Date End Date Hoang Castellanos, PROJ ENGINEER [address] [place] [address] PCP - General Family Medicine 03/12/20 documented as of this encounter
--- OUTSIDE RECORDS SUMMARY | 2024-02-22 00:51 | XMS_ITS | Encounter Summary ---
[place] [address] Care Team Providers Care Pill Machine Operator Name Role Phone Hoang Castellanos APRN Primary Care Provider [phone] Encounter Details Date Type Department Care Team (Late st Contact Info) Description 10/15/2020 Telephone Primary Care at [facility] [address] [facility] [place] [phone] Shannon Cruz, RN Social History Tobacco Use [...] Telephone Encounter - Shannon Cruz RN - 10/15/2020 1:37 PM EDT Pharmacy called asking what rx were d/c'd during visit. Pharmacy notified that tizanidine 4mg and meloxicam 15mg were d/c'd on 10/10. Pharmacy also asking if meds could be filled 4 days early so hers and husbands med packs could be mailed together. Pharmacy notified that they could. documented in this encounter Plan of Treatment Not on file documented as of this encounter Visit Diagnoses Not on filedocumented in this encounter Care Teams Pill Machine Operator Relationship Specialty Start Date End Date Hoang Castellanos, SAM [address] [place] [address] PCP - General Family Medicine 03/12/20 documented as of this encounter
--- OUTSIDE RECORDS SUMMARY | 2024-02-22 00:51 | XMS_ITS | Encounter Summary ---
Author Organization [facility] [place] [address] Care Team Providers Care Athletic Training Internship Name Role Phone Hoang Castellanos APRN Primary Care Provider Reason for Referral * Diagnostic Test (Routine) - Closed Specialty Diagnoses / Procedures Referred By Contac t Referred To Contact Radiology Diagnoses Dizziness Procedures MRI Brain wwo Contrast (Generic) Hoang Castellanos APRN [address] [place] [address] [facility] [address] [place] [address] Referral ID Status Reason Start Date Expiration Date V isits Requested Visits Authorized [id number] Closed Specialty Service Requested 07/14/2020 01/12/2022 1 1 Reason for Visit * Diagnostic Test (Routine) - Closed Specialty Diagnoses / Procedures Referred By Contac t Referred To Contact Radiology Diagnoses Dizziness Procedures MRI Brain wwo Contrast (Generic) Hoang Castellanos APRN [address] [place] [address] [facility] [address] [place] [address] Referral ID Status Reason Start Date Expiration Date V isits Requested Visits Authorized [id number] Closed Specialty Service Requested 07/14/2020 01/12/2022 1 1 Encounter Details Date Type Department Care Team (Latest Contact Info) Description 09/16/2020 12:12 PM EST - 09/16/2020 11:59 PM EST Hospital Encounter Radiology MRI at [facility] [address] [facility] [place] [address] Hoang Castellanos, TEACHER AIDE [address] [place] [address] Dizziness Discharge Disposition: Home Social History Tobacco Use [...] mouth 2 times daily. 01/27/2020 04/14/2023 lisinopriL (Prinivil;Zestril) 20 mg Tablet 09/01/2020 10/10/2020 lisinopriL (Prinivil;Zestril) 40 mg TabletIndications:Augie gn essential hypertension Take 1 tablet by mouth daily. 90 tablet 2 09/01/2020 04/14/2021 meloxicam (MOBIC) 15 mg Tablet Take 1 tablet by mouth daily. 30 tablet 3 08/12/2020 10/10/2020 lamoTRIgine (LaMICtal) 200 mg Tablet Take 1 tablet by mouth daily. 90 tablet 3 07/16/2020 06/09/2021 levothyroxine (Synthroid) 50 mcg Tablet Take 1 tablet by mouth daily. Pt needs to come in for TSH. 90 tablet 3 07/16/2020 06/09/2021 clopidogreL (Plavix) 75 mg Tablet Take 1 tablet by mouth daily. 90 tablet 3 07/16/2020 10/10/2020 nitroGLYcerin (Nitrostat) 0.4 mg Tablet, Sublingual Place [...] mouth daily. 45 tablet 3 04/28/2020 03/17/2021 traZODone (Desyrel) 50 mg Tablet Take 1 tablet by mouth daily. 04/20/2020 10/01/2020 alendronate (Fosamax) 70 mg TabletIndications:Age- related osteoporosis [...] 3 03/21/2020 02/17/2021 ibuprofen (Advil;Motrin) 800 mg TabletIndications:Grinder Outside Diameter randell right-sided low back pain without sciatica Take 1 tablet by mouth every 8 hours as needed for Pain. 90 tablet 5 03/04/2020 11/04/2021 traZODone (Desyrel) 100 mg Tablet Take 1 tablet by mouth daily. 02/26/2020 10/01/2020 Acidophilus Capsule TAKE TWO (2) CAPSULES BY MOUTH TWICE A DAY 112 capsule 11 01/21/2020 12/23/2020 polyethylene glycoL (Miralax) 17 gram/dose Powder Take 17 g by mouth 2 times daily. 1020 g 11 01/08/2020 10/10/2020 ferrous sulfate 325 mg (65 mg iron) [...] by mouth daily. Taking half 12/12/2019 12/11/2021 tiZANidine (Zanaflex) 4 mg Tablet TAKE ONE (1) TABLET BY MOUTH EVERY 6-8 HOURS NEEDED *MAX 3 DOSES PER 24HR* (VIAL) 60 tablet 5 11/21/2019 10/10/2020 Incruse Ellipta 62.5 mcg/actuation Disk with Device USE ONE PUFF INTO THE LUNGS EVERY DAY 30 each 11 11/08/2019 10/10/2020 omeprazole (PriLOSEC) 20 mg Capsule, Delayed Release(E.C.)Indicatio ns:Gastroesophageal reflux disease, esophagitis presence not specified Take 1 capsule by mouth 2 times daily. 56 capsule 11 10/29/2019 10/02/2020 lactobacillus rhamnosus, GG, (CULTURELLE) 10 billion cell [...] with spacer 1 Inhaler 11 05/21/2019 10/27/2020 traZODone (DESYREL) 150 mg Tablet Take 75 mg by mouth nightly. 10/01/2020 documented as of this encounter Plan of Treatment Not on file documented as of this encounter Procedures Procedure Name Priority Date/Time Associated Diagnosis Comments MRI BRAIN WWO CONTRAST (GENERIC) Routine 09/16/2020 1:27 PM EST Dizziness documented in this encounter Results * MRI Brain wwo Contrast (Generic) (09/16/2020 1:27 PM EST) Anatomical Region Laterality Modality Head Magnetic Resonan ce Impressions 09/16/2020 1:32 PM EST No acute intracranial abnormality. No IAC mass or abnormal enhancement. Thank you for letting us participate in the care of this patient. For questions regarding this report, please contact the number below. ? Narrative 09/16/2020 1:32 PM EST EXAMINATION: MRI BRAIN WWO CONTRAST (GENERIC) CLINICAL HISTORY: Dizziness, persistent/recurrent, cardiac or vascular cause suspected TECHNIQUE: MRI of the brain was performed before and after the intravenous administration of 17cc ProHance. COMPARISON: 03/13/2003 FINDINGS: Images somewhat limited by motion. Internal auditory canals normal bilaterally without IAC mass or abnormal enhancement. The ventricles remain normal in size and contour. There is no evidence of recent infarct. There are a few areas of T2 signal alteration the white matter both cerebral hemispheres hemispheres, a common nonspecific finding typically attributed to small vessel ischemic change. Major intracranial flow voids are normal for technique. Procedure Note Yannick Solis MD - 09/16/2020 EXAMINATION: MRI BRAIN WWO CONTRAST (GENERIC) CLINICAL HISTORY: Dizziness, persistent/recurrent, cardiac or vascularcause suspected TECHNIQUE: MRI of the brain was performed before and after the intravenousadministration of 17cc ProHance. COMPARISON: 03/13/2003 FINDINGS: Images somewhat limited by motion. Internal auditory canals normalbilaterally without IAC mass or abnormal enhancement. The ventricles remain normal insize and contour. There is no evidence of recent infarct. There are a few areasof T2 signal alteration the white matter both cerebral hemispheres hemispheres,a common nonspecific finding typically attributed to small vessel ischemicchange. Major intracranial flow voids are normal for technique. IMPRESSION No acute intracranial abnormality. No IAC mass or abnormal enhancement. Thank you for letting us participate in the care of this patient. Forquestions regarding this report, please contact the number below. Hoang Castellanos APRN IMG MRI ORDERABLES documented in this encounter Visit Diagnoses Diagnosis Dizziness Dizziness and giddiness documented in this encounter Administered Medications Inactive Administered Medications - up to 3 most recent administrations Medication Order MAR Action Action Date Dose Rate Site gadoteridoL (Prohance) (279.3 mg/mL) injection 17 mL 17 mL, Intravenous, ONCE PRN, 1 dose, Starting on 2/23/21 at 1240, Until Tu09/16/20 at 1301, Per Protocol, Radiology Contrast, Routine Given 09/16/2020 1:01 PM EST 17 mLs documented in this encounter Care Teams Athletic Training Internship Relationship Specialty Start Date End Date Hoang Castellanos, TEACHER AIDE [address] [place] [address] PCP - General Family Medicine 03/12/20 documented as of this encounter
--- OUTSIDE RECORDS SUMMARY | 2024-02-22 00:51 | XMS_ITS | Encounter Summary ---
Author Organization Formerly [facility] [place] [address] Care Team Providers Care Electrocardiograph Technician Name Role Phone Hoang Castellanos APRN Primary Care Provider [phone] Reason for Visit * Reason Onset Date Comments Appointment 12/29/2020 Encounter Details Date Type Department Care Team (Late st Contact Info) Description 12/29/2020 Telephone [place] [phone] Keron Theodore MD [facility] [address] Appointment Social History Tobacco Use Types Packs/Day Years [...] encounter Miscellaneous Notes * Telephone Encounter - Marilu Estrada - 12/29/2020 12:21 PM EDT Patient canceled appointment and would like to have a consult only first appointment. documented in this encounter Plan of Treatment Not on file documented as of this encounter Visit Diagnoses Not on filedocumented in this encounter Care Teams Electrocardiograph Technician Relationship Specialty Start Date End Date Hoang Castellanos, COVERAGE SPECIALIST [address] [place] [address] PCP - General Family Medicine 03/12/20 documented as of this encounter
--- OUTSIDE RECORDS SUMMARY | 2024-02-22 00:51 | XMS_ITS | Encounter Summary ---
[place] [address] Care Team Providers Care Wood Tank Erector Name Role Phone Hoang Castellanos APRN Primary Care Provider [phone] Reason for Referral * Diagnostic Test (Routine) - Closed Specialty Diagnoses / Procedures Referred By Contac t Referred To Contact Diagnoses Coronary artery disease involving tununak coronary artery of tununak heart without angina pectoris Repeated falls Procedures Ziopatch 48 Hrs-15 Days Dustin Haynes [facility] [address] Referral ID Status Reason Start Date Expiration Date V isits Requested Visits Authorized [id number] Closed Specialty Service Requested 10/01/2020 10/01/2021 1 1 * Diagnostic Test (Routine) - Closed Specialty Diagnoses / Procedures Referred By Contac t Referred To Contact Cardiology Diagnoses Coronary artery disease involving tununak coronary artery of tununak heart without angina pectoris Procedures Echocardiogram Transthoracic([facility]) Dustin Haynes [facility] [address] [facility] [place] [address] Referral ID Status Reason Start Date Expiration Date V isits Requested Visits Authorized [id number] Closed Specialty Service Requested 10/01/2020 10/01/2021 1 1 Reason for Visit * Consultation (Routine) - Closed Specialty Diagnoses / Procedures Referred By Contac t Referred To Contact Cardiology Diagnoses Coronary artery disease involving tununak coronary artery of tununak heart without angina pectoris CAD - Coronary artery disease involving tununak coronary artery of tununak heart without angina pectoris *[facility] Hoang Castellanos, CLINICAL PHYSICIAN ASSISTANT [address] [place] [phone] Freddy Mejias MD [facility] [place] [address] Referral ID Status Reason Start Date Expiration Date V isits Requested Visits Authorized [id number] Closed Consult, Test & Treat 07/16/2020 07/16/2021 6 6 Encounter Details Date Type Department Care Team (Late st Contact Info) Description 10/01/2020 3:00 PM EST TH Visit (TeleHealth) Cardiology at [address] [address] Benito Reed MD [facility] [place] [address] Dustin Haynes DO [facility] [place] [address] Coronary artery disease involving tununak coronary artery of tununak heart without angina pectoris; Repeated falls Social History Tobacco Use Types Packs/Day Years [...] as of this encounter Progress Notes * Dustin Haynes, DO - 10/01/2020 3:00 PM EST Images from the original note were not included. [facility] [place] [address] CARDIOLOGY OUTPATIENT TELEHEALTH NOTE PRIMARY CARE PROVIDER: Hoang Castellanos APRN REFERRING PROVIDER: Hoang Castellanos This was a Telehealth visit Subjective: Patient ID: Jeannie Rico is a 60 y.o. 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 LEEROY Dennis is a 60 yo female who was previously seen by Dr. Mejias, last in 2017 and was lost to cardiology follow up [...] ppd and lives athome with her . PROBLEM LIST: Patient Active Problem List Diagnosis ??? Generalized weakness ??? Asthma ??? Benign [...] RS Psychiatry ??? Osteoporosis DEXA done at [facility] on 10/29/15: osteoporosis at the left hip T-3, and osteopenia of the spine T-1.9 ??? Smokes cigarettes ??? GERD (gastroesophageal reflux disease) ??? Anxiety ??? Depression ??? Post traumatic stress disorder (PTSD) ??? Hidradenitis suppurativa ??? Chronic pain ??? Cervicalgia ??? Lumbago MEDICATIONS: Current Outpatient Medications on File Prior to Visit Medication Sig Dispense Refill ??? lisinopriL (Prinivil;Zestril) 40 mg Tablet Take 1 tablet by mouth daily. 90 tablet 2 ??? meloxicam (MOBIC) 15 mg Tablet Take 1 tablet by mouth daily. 30 tablet 3 ??? lamoTRIgine (LaMICtal) 200 mg Tablet Take 1 tablet by mouth daily. 90 tablet 3 ??? levothyroxine (Synthroid) 50 mcg Tablet Take 1 tablet by mouth daily. Pt needs to come in for TSH. 90 tablet 3 ??? clopidogreL (Plavix) 75 mg Tablet Take 1 tablet by mouth daily. 90 tablet 3 ??? nitroGLYcerin (Nitrostat) 0.4 [...] by mouth daily. 45 tablet 3 ??? traZODone (Desyrel) 50 mg Tablet Take 1 tablet by mouth daily. ??? alendronate (Fosamax) 70 mg Tablet Take 1 tablet by mouth every 7 days. Take in AM with full glass of water, on an empty stomach. Do not lie down for 30 min. 52 tablet 0 ??? prazosin (Minipress) 2 mg Capsule Take 1 capsule by mouth daily. ??? isosorbide mononitrate CR (Imdur) 30 mg Tablet Sustained Release 24 hr Take 1 tablet by mouth daily. 90 tablet 3 ??? Miscellaneous Medical Supply [facility] 1 walker on wheels with seat 1 each 0 ??? ibuprofen (Advil;Motrin) 800 mg Tablet Take 1 tablet by mouth every 8 hours as needed for Pain.90 tablet 5 ??? traZODone (Desyrel) 100 mg Tablet Take 1 tablet by mouth daily. ??? sertraline (ZOLOFT) 100 mg Tablet Take 1 tablet by mouth daily. ??? Acidophilus Capsule TAKE TWO (2) CAPSULES BY MOUTH TWICE A DAY 112 capsule 11 ??? multivitamin (THERAGRAN) Tablet Take 1 tablet by mouth daily. ??? calcium-vitamin D 500 mg(1,250mg) -200 unit Tablet Take 1 tablet by mouth 2 times daily (with meals). ??? polyethylene glycoL (Miralax) 17 gram/dose Powder Take 17 g by mouth 2 times daily. 1020 g 11 ??? ferrous sulfate 325 mg (65 mg iron) Tablet Take 1 tablet by mouth three times a week. 36 tablet3 ??? lancets 30 gauge Misc 1 each by Misc.(Non-Drug; Combo Route) route daily. 100 each 3 ??? simvastatin (Zocor) 40 mg Tablet Take 1 tablet by mouth nightly. 90 tablet 3 ??? ARIPiprazole (Abilify) 5 mg Tablet ??? tiZANidine (Zanaflex) 4 mg Tablet TAKE ONE (1) TABLET BY MOUTH EVERY 6-8 HOURS NEEDED *MAX 3DOSES PER 24HR* (VIAL) 60 tablet 5 ??? Incruse Ellipta 62.5 mcg/actuation Disk with Device USE ONE PUFF INTO THE LUNGS EVERY DAY 30 each 11 ??? omeprazole (PriLOSEC) 20 mg Capsule, Delayed Release(E.C.) Take 1 capsule by mouth 2 times daily. 56 capsule 11 ??? lactobacillus rhamnosus, GG, (CULTURELLE) 10 billion cell Capsule Take 2 capsules by mouth 2 times daily. ??? alum-mag hydroxide-simeth (Maalox) 200-200-20 mg/5 mL Suspension Take 10 mLs by mouth every 6 hours as needed for Indigestion. ??? sertraline (Zoloft) 50 mg Tablet Take 1 tablet by mouth daily. 90 tablet 3 ??? tiotropium bromide (SPIRIVA RESPIMAT) 2.5 mcg/actuation Mist Inhale 2 puffs into the lungs nightly. 12 g 3 ??? albuterol (PROAIR HFA) 90 mcg/actuation HFA Aerosol Inhaler Inhale 2 puffs into the lungs every4 hours as needed. Use with spacer 1 Inhaler 11 ??? MARIJUANA ORAL Take by mouth. ??? traZODone (DESYREL) 150 mg Tablet Take 75 mg by mouth nightly. No current facility-administered medications on file prior to visit. FAMILY HISTORY: + Family history of CAD SOCIAL HISTORY: , no children. Lives in [place]. Occupation: On Disability. Smoking: Active smoker, 1-2ppd, previously 2 ppd Alcohol: Prior alcohol use, quit ~ 1994 Illicits: Denies Last 3 wbc, hgb, hct plt Recent Labs 07/03/20 1255 01/01/20 0833 WBC 12.3* 8.3 HGB 14.2 13.9 HCT 43.6 44.3 PLATELET 240 268 Last 3 Lytes Recent Labs 07/03/20 1255 01/01/20 0833 NA 139 136 K 4.3 4.7 CL 101 97* CO2 29 28 BUN 17 14 CREATININE 0.81 0.90 Last 3 LFTs Recent Labs 01/01/20 0833 AST 14 ALT 8 ALKPHOS 111* BILITOT 0.3 Last Ca, Mg, Phos No results for input(s): CALCIUM, PHOS, MAGNESIUM in the last 168 hours. Last 3 Coags No results for input(s): PT, INR, PTT in the last 168 hours. Last 3 ProBNP, Trop, CK No results for input(s): CK, TROPONINT, PROBNP in the last 168 hours. Last 3 TFT Recent Labs 01/01/20 0833 TSH 1.53 Last 3 Lipids Recent Labs 12/27/19 0727 CHLPL 114 HDL 38 LDLCHOL 56 TRIG 102 Last 3 HgbA1C Recent Labs 01/01/20 0833 HA1C 6.0* Last CRP, SEDRATENo results for input(s): CRP, SEDRATE in the last 7068 hours. Imaging/Diagnostics MRI brain 09/16/2020 FINDINGS: Images somewhat limited by motion. Internal [...] intracranial flow voids are normal for technique. ?? IMPRESSION No acute intracranial abnormality. No IAC mass or abnormal enhancement. Assessment and Plan: Jeannie Rico is a 60 y.o. female with a hx of ASCVD s/p PCI to prox and mid LAD, HTN, tobacco use, type II DM, depression, and COPD calling into today to re-establish cardiology care regarding theabove issues. At this time the pt's coronary artery disease appears stable, however is confounded somewhat by hermarkedly limited functional status due to unsteadiness and falls. Major issues now appear to be poorly controlled hypertension and falls/unsteadiness. This is all complicated by the pt's reported inability to leave the house (however she was able to get to an MRI on 09/16). My suspicion for a cardiac etiology to her falls is low at this time as they due not sound a rrhythmogenic in nature and the description sounds more mechanical/balance related. However, it would be reasonable to update her echo as she is at risk for structural heart disease and pursue rhythmmonitoring to rule those out given the severity of symptoms. Unfortunately due to transportation issues Jeannie reports she is not able to come in and get these tests done. I will communicate my thoughts and recommendations to the pt's PCP as it seems like thereare more underlying issues present and wonder if Jeannie would benefit from VNA to help facilitate labs and transportation. It would be most hopeful to see Jeannie in person. I will request 3 month in person f/u to f/u the below recommendations. #ASCVD s/p PCI - stop plavix at this time (no reason from a stent/cardiology perspective) and given her frequent falls poses significant harm - cont ASA 81mg - cont metoprolol (could consider switching this to carvedilol but baseline bradycardia limits titrate of BB) - recheck lipids - switch simvastatin to atorvastatin 40mg QD #Uncontrolled HTN - check BMP given increase in lisinopril dose and daily NSAID use - pending BMP consider adding Amlodipine or Chlorthalidone (pt will likely need both). Could start amlodipine without checking BMP first. Will defer this to pt's PCP who has more regular contact withher. - encourage pt to wean NSAID use #Falls - TTE (ordered) - Zio patch (ordered) - recommend checking orthostatic vitals as this could represent autonomic insufficency in setting of type II DM Dustin Haynes DO Sports Anchor; PGY-5 10/01/2020 Cardiology Attending Attestation: 60 y.o. female with history of coronary artery disease status post remote PCI who was subsequently lost to follow-up and who continues to have multiple medical comorbidities. She could not travel in for her visit today due to severe gait instability which has been incompletely characterized. A Zio patch will be mailed to her and a TTE ordered to ensure no cardiac structural or rhythm contributionto her debilitating symptoms. The fellow and I reviewed the case including patient history, physical exam, ECG, and pertinent imaging/invasive cardiovascular studies. We developed a plan with the patient for diagnosis and management according to the recommendations above. [place] [address] (office); Pager #[phone] Email: [email or web address] documented in this encounter Plan of Treatment Not on file documented as of this encounter Results * ECHO COMPLETE W CONTRAST (01/07/2021 1:27 PM EDT) EF 65 HEARTEmailage SYSTEM Anatomical Region Laterality Modality Other 01/07/2021 Narrative 01/07/2021 1:36 PM EDT Procedure: ?Transthoracic Echocardiogram Patient: ?CARBANGIE JEANNIE L ? (Age): 1960(60y) Med Rec#: ? [id number] ?Sex: ?F ? Site Loc: ? [facility] ?Ht / Wt: ??163(cm)/99(kg) Pt. Loc: ?Echo Lab ?BSA: ?2.03 Study Date: ?? 01/07/2021 ?Pt. Type: Outpatient Tape: ? Referring: LAURA Reading: Freddy Mejias ([id number]) Commercial Horticulture Instructor: Saranya Monson Mill Tender: Zackary Feldman Diagnosis: *Atherosclerotic heart disease of tununak coronary artery without angina pectoris (I25.10) BP: [...] Vmax ?0.56 ? m/sec ? MV deceleration [id number] ? msec ? MV A-wave Vmax ?0.81 [...] ? Mid-Inferior ?Normal ? Mid-Inferoseptal ?Normal ? [place]-Septal ? Normal ? [place]-Anterior ? Normal ? [place]-Lateral ?Normal ? [place]-Inferior ? Normal ? [place]-Tip ?Normal ? This report has been electronically signed by: Freddy Mejias MD ? 01/07/2021 13:36:15 Images reviewed and interpretation verified [facility] Cardiac Ultrasound Laboratory Procedure Note Freddy Mejias MD - 01/07/2021 Procedure: Transthoracic Echocardiogram Patient: APOLINAR Lawson DOB(Age): 1960(60y) Med Rec#: [id number] Sex: F Site Loc: [facility] Ht / Wt: 163(cm)/99(kg) Pt. Loc: Echo Lab BSA: 2.03 Study Date: 01/07/2021 Pt. Type: Outpatient Tape: Referring: LAURA Reading: Freddy Mejias ([id number]) Commercial Horticulture Instructor: Saranya Monson Mill Tender: Friend, Zackary Diagnosis: *Atherosclerotic heart disease of tununak coronary artery without angina pectoris (I25.10) BP: [...] MV E-wave Vmax 0.56 m/sec MV deceleration [id number] msec MV A-wave Vmax 0.81 m/sec MV [...] Normal Mid-Posterolateral Normal Mid-Inferior Normal Mid-Inferoseptal Normal [place]-Septal Normal [place]-Anterior Normal [place]-Lateral Normal [place]-Inferior Normal [place]-Tip Normal This report has been electronically signed by: Freddy Mejias MD 01/07/2021 13:36:15 Images reviewed and interpretation verified [facility] Cardiac Ultrasound Laboratory Benito Reed MD ECHO ORDERABLES * Ziopatch 48 Hrs-15 Days (10/09/2020 8:29 AM EDT) Anatomical Region Laterality Modality Other Narrative 11/07/2020 2:39 PM EDT [facility] ? Zio Patch? Ambulatory Cardiac Event Monitor Report Indication: atherosclerotic disease of heart Duration of recording ? 7 days 1 hour Summary Data Predominant rhythm ? sinus rhythm Minimum sinus rate 37 bpm Maximum sinus rate 90 bpm Average heart rate 54 bpm Heart rate variability is reduced: Atrial fibrillation none Ectopic beats <1% atrial premature beats (APC? s) <1% ventricular premature beats (VPC's) 1 runs of SVT was observed, 7 beats at 133 bpm. No high grade ectopy Triggered and Patient Diary Events There were 10 triggered and 6 patient diary events: Pounding, lightheaded, dizzy, pain/tingling in neck/arm and triggered events occurred during sinus rhythm with heart rate range of 40s-70s bpm. Conclusion(s): ?? 1) Predominant rhythm is sinus. 2) Symptoms occurred during sinus rhythm. 3) No sustained arrhythmias. Chance Moya MD [facility] Cardiac Electrophysiology 11/07/2020 2:38 PM Benito Reed MD CARDIAC SERVICE S ORDERABLES documented in this encounter Visit Diagnoses Diagnosis Coronary artery disease involving tununak coronary artery of tununak heart without angina pectoris Repeated falls Other symptoms involving nervous and musculoskeletal systems Coronary artery disease involving tununak coronary artery of tununak heart without angina pectoris Repeated falls Other symptoms involving nervous and musculoskeletal systems Coronary artery disease involving tununak coronary artery of tununak heart without angina pectoris documented in this encounter Care Teams Wood Tank Erector Relationship Specialty Start Date End Date Hoang Castellanos, CLINICAL PHYSICIAN ASSISTANT [address] [place] [address] PCP - General Family Medicine 03/12/20 documented as of this encounter
--- OUTSIDE RECORDS SUMMARY | 2024-02-22 00:51 | XMS_ITS | Encounter Summary ---
[place] [address] Care Team Providers Care Jeweler Apprentice Name Role Phone Hoang Castellanos APRN Primary Care Provider Encounter Details Date Type Department Care Team (Late st Contact Info) Description 09/16/2020 Telephone Primary Care at [facility] [address] [place] [id number] Shannon Cruz RN Social History Tobacco Use [...] Telephone Encounter - Shannon Cruz RN - 09/16/2020 4:29 PM EST Pt notified. * Telephone Encounter - Shannon Cruz RN - 09/16/2020 4:28 PM EST ----- Message from Hoang aCstellanos APRN sent at 09/16/2020 2:17 PM EST ----- Please inform patient of normal mri results. documented in this encounter Plan of Treatment Not on file documented as of this encounter Visit Diagnoses Not on filedocumented in this encounter Care Teams Jeweler Apprentice Relationship Specialty Start Date End Date Hoang Castellanos, SAM [address] [place] [address] PCP - General Family Medicine 03/12/20 documented as of this encounter
--- OUTSIDE RECORDS SUMMARY | 2024-02-22 00:51 | XMS_ITS | Encounter Summary ---
Author Organization [facility] [place] [address] Care Team Providers Care Nurse Charge Rn Name Role Phone Hoang Castellanos APRN Primary Care Provider Reason for Visit * Reason Comments Medication Refill Encounter Details Date Type Department Care Team (Late st Contact Info) Description 12/23/2020 Refill Primary Care at [facility] [address] [place] [phone] Hoang Castellanos APRN [address] [facility] [address] Social History Tobacco Use Types Packs/Day Years [...] encounter Miscellaneous Notes * Telephone Encounter - Isadora Hidalgo LPN - 12/23/2020 1:12 PM EDT Last Prescription Fill Date: 01/21/2020 Number Dispensed and Refills: 112/11 refills Last Related Office Visit: 12/15/2020 Upcoming Appointment: 03/23/2021 No flowsheet data found. Lab Results Component Value Date HGB 14.6 [...] on filedocumented in this encounter Care Teams Nurse Charge Rn Relationship Specialty Start Date End Date Hoang Castellanos, HEAD TURBINE OPERATOR [address] [place] [address] PCP - General Family Medicine 03/12/20 documented as of this encounter
--- OUTSIDE RECORDS SUMMARY | 2024-02-22 00:51 | XMS_ITS | Encounter Summary ---
Author Organization [place] [address] Care Team Providers Care Denial Management Representative Name Role Phone Hoang Castellanos APRN Primary Care Provider [phone] Encounter Details Date Type Department Care Team (Late st Contact Info) Description 12/10/2020 Telephone Primary Care at [facility] [address] [facility] [place] [address] Hoang Castellanos APRN [address] [place] [address] Social History Tobacco Use Types Packs/Day Years [...] Telephone Encounter - Alva Castellanos LPN - 12/11/2020 8:22 AM EDT I spoke with Jeannie; #1 She states her eye has not gotten any better nor any worse. #2 Jeannie states that Marli did call her from Dr. Garcia office and they scheduled her to be seen on 12/12/2020 @0930. We did confirm that it was not katalina that told her about the appointment with Dr. Garcia. #3 Jeannie states that her sister would like to speak with her Provider and/or her nurse about her PTSD and being asked to go to the ER. There is not a Personal Rep signed for this office to speak withher sister. Jeannie is going to have someone picker a form so she can fill it out. #4 Jeannie states she has been very upset over the fact of being asked to go to the ER. She has PTSD from a previous ER visit and does not want to go through that again. She did explain the details Mari also explained the urgency for her to have immediate attention if she has loss all sight in that eye now. #5 She has an appointment her at [facility] on 12/15/2020 with her Provider, Hoang Castellanos APRN. #6 I advised patient to call and speak with her Provider's nurse with any further issues or problems from this point on. Jeannie will have her appointment with Dr. Garcia tomorrow(12/12/2020) and she islooking forward to seeing her Provider on Tuesday(12/15/2020). She agreed. * Telephone Encounter - Alva Castellanos LPN - 12/10/2020 2:38 PM EDT I spoke with Jeannie and she was very anxious. She said her heart was pounding and she was panicking. She said she called triage at [facility]. She doesn't want to go to the ER because she has PTSD. She said Katalina told her Dr. Garcia (Ophthamologist) would see her on Tuesday at 0930. Jeannie states she can't see anything with that eye now. I strongly suggested she go to the ER. She states she can't. Jeannie did agree if her symptoms worsen she will make an effort to go to the ER. documented in this encounter Plan of Treatment Not on file documented as of this encounter Visit Diagnoses Not on filedocumented in this encounter Care Teams Denial Management Representative Relationship Specialty Start Date End Date Hoang Castellanos, IN PROCESS INSPECTOR [address] [place] [address] PCP - General Family Medicine 03/12/20 documented as of this encounter
--- OUTSIDE RECORDS SUMMARY | 2024-02-22 00:51 | XMS_ITS | Encounter Summary ---
[place] [address] Care Team Providers Care Construction Stonemason Name Role Phone Hoang Castellanos APRN Primary Care Provider [phone] Reason for Visit * Reason Onset Date Comments Eye Problem 12/10/2020 Sudden vision lo ss RE Encounter Details Date Type Department Care Team (Late st Contact Info) Description 12/10/2020 Tele[place] [phone] Ilana Whittington MD [facility] [place] [address] Eye Problem (Sudden vision loss RE) Social History Tobacco Use Types Packs/Day Years [...] Miscellaneous Notes * Telephone Encounter - Lay Hilario COT - 12/12/2020 1:14 PM EDT Follow up call to patient. She was seen by local eye care provider and dx of dense cataract RE. Will be sending referral here. Patient given head up about scheduling time frame of several months. * Telephone Encounter - Lay Hilario COT - 12/10/2020 10:03 AM EDT Patient states via VM; called PCP office about recent problems with dizziness, difficulty breathingas well was sudden decreased VA OD. They advised patient to go to ED, however, she did not go due to PDST. Patient calling as recommended to discuss options for urgent eye appointment. Per PCP telephone encounter, patient prefers to be seen at [facility] which is appropriate for eye problem, however, given systemic issues patient is describing, PCP visit likely more time sensitive give possible symptoms of vascular changes/episodes. LVM for patient call back. documented in this encounter Plan of Treatment Not on file documented as of this encounter Visit Diagnoses Not on filedocumented in this encounter Care Teams Construction Stonemason Relationship Specialty Start Date End Date Hoang Castellanos, DATA SYSTEMS ANALYST [address] [place] [place] [address] PCP - General Family Medicine 03/12/20 documented as of this encounter
--- OUTSIDE RECORDS SUMMARY | 2024-02-22 00:51 | XMS_ITS | Encounter Summary ---
[place] [address] Care Team Providers Care Insurance Verification Representative Name Role Phone Hoang Castellanos APRN Primary Care Provider Reason for Visit * Reason Onset Date Comments Medication Refill 10/16/2020 Encounter Details Date Type Department Care Team (Late st Contact Info) Description 10/16/2020 Telephone Primary Care at [facility] [address] [facility] [place] [phone] Shannon Cruz, miniature set designer Refill Social History Tobacco Use Types Packs/Day Years [...] Telephone Encounter - Shannon Cruz RN - 10/16/2020 4:06 PM EDT Hoang Castellanos APRN to Me ?? 10/16/20 3:53 PM We should replace simvastatin with atorvastatin. ??I have sent a new prescription to the pharmacy. Pharmacy notified. * Telephone Encounter - Shannon Cruz RN - 10/16/2020 1:35 PM EDT Pharmacy called in regards to interaction between simvastatin 40mg and amlodipine 5mg. Warning: Patient Management Carefully consider the potential benefits and risks of this combination. Limit the dose of simvastatin to 20 mg daily if coadministering with amlodipine. If coadministering simvastatin and amlodipine, close laboratory and clinical monitoring for signs and symptoms of rhab domyolysis (eg, creatine phosphokinase, muscle aches and pains) is warranted. documented in this encounter Plan of Treatment Not on file documented as of this encounter Visit Diagnoses Diagnosis Hyperlipidemia, unspecified hyperlipidemia type documented in this encounter Care Teams Insurance Verification Representative Relationship Specialty Start Date End Date Hoang Castellanos APRN [address] [place] [address] PCP - General Family Medicine 03/12/20 documented as of this encounter
--- OUTSIDE RECORDS SUMMARY | 2024-02-22 00:51 | XMS_ITS | Encounter Summary ---
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 Repeated falls Procedures Ziopatch 48 Hrs-15 Days Dustin Haynes [facility] [place] [address] Referral ID Status Reason Start Date Expiration Date V isits Requested Visits Authorized [id number] Closed Specialty Service Requested 10/01/2020 10/01/2021 1 1 Reason for Visit * Diagnostic Test (Routine) - Closed Specialty Diagnoses / Procedures Referred By Contac t Referred To Contact Diagnoses 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 Repeated falls Procedures Ziopatch 48 Hrs-15 Days Dustin Haynes [facility] [place] [address] Referral ID Status Reason Start Date Expiration Date V isits Requested Visits Authorized [id number] Closed Specialty Service Requested 10/01/2020 10/01/2021 1 1 Encounter Details Date Type Department Care Team (Late st Contact Info) Description 10/09/2020 8:25 AM EDT - 10/09/2020 11:59 PM EDT Hospital Encounter Non-Invasive Cardiology Lab Formerly [facility] [place] [address] Benito Reed MD [facility] [place] [address] 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; Repeated falls Discharge Disposition: Home Social History Tobacco Use [...] lisinopriL (Prinivil;Zestril) 20 mg Tablet 09/01/2020 10/10/2020 omeprazole (PriLOSEC) 20 mg Capsule, Delayed [...] 3 03/21/2020 02/17/2021 ibuprofen (Advil;Motrin) 800 mg TabletIndications:Nurse Ortho randell right-sided low back pain without sciatica [...] INTO THE LUNGS EVERY DAY 30 each 11/08/2019 10/10/2020 lactobacillus rhamnosus, GG, (CULTURELLE) 10 billion cell [...] Procedure Name Priority Date/Time Associated Diagnosis Comments ZIOPATCH 48 HRS-15 DAYS Routine 10/09/2020 8:29 AM EDT 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 Zio Patch? 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
--- OUTSIDE RECORDS SUMMARY | 2024-02-22 00:51 | XMS_ITS | Encounter Summary ---
Author Organization [facility] [place] [address] Care Team Providers Care Marketing Traffic Coordinator Name Role Phone Hoang Castellanos APRN Primary Care Provider [phone] Reason for Visit * Reason Comments Medication Refill Encounter Details Date Type Department Care Team (Late st Contact Info) Description 09/30/2020 Refill Primary Care at [facility] [address] [facility] [place] [phone] Hoang Castellanos APRN [address] [facility] [place] [address] Gastroesophageal reflux disease Social History Tobacco Use [...] Telephone Encounter - Shannon Cruz RN - 10/01/2020 3:20 PM EST PCP: Hoang Castellanos APRN Medication: Requested Prescriptions Pending Prescriptions Disp Refills ??? omeprazole (PriLOSEC) 20 mg Capsule, Delayed Release(E.C.) [Pharmacy Med Name: Omeprazole 20 MGCapsule delayed release] 56 capsule 11 Sig: TAKE ONE (1) CAPSULE BY MOUTH TWICE A DAY 30 MIN BEFORE BREKAFAST AND IN THE EVENING Last Appt: 07/14/2020 Future Appt: Visit date not found Pharmacy: [facility] Last rx: 10/29/2019: 56 tablets/capsules, 11 refills documented in this encounter Plan of Treatment Not on file documented as of this encounter Visit Diagnoses Diagnosis Gastroesophageal reflux disease Esophageal reflux documented in this encounter Care Teams Marketing Traffic Coordinator Relationship Specialty Start Date End Date Hoang Castellanos, PATIENT SUPPORT SPECIALIST [address] [place] [address] PCP - General Family Medicine 03/12/20 documented as of this encounter
--- OUTSIDE RECORDS SUMMARY | 2024-02-22 00:52 | XMS_ITS | Encounter Summary ---
Author Organization [facility] [place] [address] Care Team Providers Care Inspector Machine Cut Glass Name Role Phone Hoang Castellanos APRN Primary Care Provider Reason for Visit * Reason Onset Date Comments Medication Refill 07/16/2020 Encounter Details Date Type Department Care Team (Late st Contact Info) Description 07/16/2020 Refill Primary Care at [facility] [address] [facility] [place] [phone] Isadora Hidalgo LPN Social History Tobacco Use Types Packs/Day [...] Telephone Encounter - Isadora Hidalgo LPN - 07/16/2020 3:42 PM EST Received a fax from pharmacy requesting Rx for clopidogrel 75 mg, lamotrigine 200 mg levothyroxine 50 mcg Last Prescription Fill Date: 08/20/19 Number Dispensed and Refills: 30, 3 refills Last Related Office Visit: 07/14/20 Upcoming Appointment: Visit date not found No flowsheet data found. Lab Results Component Value Date HGB 14.2 07/03/2020 HCT 43.6 07/03/2020 CHLPL 114 12/27/2019 TRIG 102 12/27/2019 HDL 38 12/27/2019 LDLCHOL 56 12/27/2019 ALT 8 01/01/2020 AST 14 01/01/2020 NA 139 07/03/2020 K 4.3 07/03/2020 CL 101 07/03/2020 CREATININE 0.81 07/03/2020 TSH 1.53 01/01/2020 INR 1.0 07/03/2020 HA1C 6.0 (H) 01/01/2020 documented in this encounter Plan of Treatment Not on file documented as of this encounter Visit Diagnoses Not on filedocumented in this encounter Care Teams Inspector Machine Cut Glass Relationship Specialty Start Date End Date Hoang Castellanos, SAM [address] [place] [address] PCP - General Family Medicine 03/12/20 documented as of this encounter
--- OUTSIDE RECORDS SUMMARY | 2024-02-22 00:52 | XMS_ITS | Encounter Summary ---
Author Organization [facility] [address] Care Team Providers Care Spine Surgeon Name Role Phone Hoang Castellanos APRN Primary Care Provider [phone] Encounter Details Date Type Department Care Team (Late st Contact Info) Description 07/03/2020 12:30 PM EST Ancillary Procedure Radiology Xray at [facility] [place] [address] Social History Tobacco Use Types Packs/Day Years [...] Name Priority Date/Time Associated Diagnosis Comments XR CHEST PA AND LATERAL STAT 07/03/2020 12:40 PM EST documented in this encounter Results * XR Chest PA & Lateral (Generic) (07/03/2020 12:40 PM EST) Anatomical Region Laterality Modality Chest N/A Digital Radiogra phy Impressions 07/03/2020 1:01 PM EST No acute finding. Thank you for letting us participate in the care of this patient. For questions regarding this report, please contact the number below. ? Narrative 07/03/2020 1:01 PM EST EXAMINATION: XR CHEST PA AND LATERAL (GENERIC) CLINICAL HISTORY: trauma with rib pain eval for fracture TECHNIQUE: PA and lateral views of the chest. COMPARISON: Chest x-ray dated 09/08/2018 FINDINGS: The cardiomediastinal silhouette is stable. There is no pulmonary vascular congestion, focal consolidation, pleural effusion or pneumothorax. No acute displaced rib fractures. Procedure Note Monty Sams DO - 07/03/2020 EXAMINATION: XR CHEST PA AND LATERAL (GENERIC) CLINICAL HISTORY: trauma with rib pain eval for fracture TECHNIQUE: PA and lateral views of the chest. COMPARISON: Chest x-ray dated 09/08/2018 FINDINGS: The cardiomediastinal silhouette is stable. There is nopulmonary vascular congestion, focal consolidation, pleural effusion orpneumothorax. No acute displaced rib fractures. IMPRESSION No acute finding. Thank you for letting us participate in the care of this patient. Forquestions regarding this report, please contact the number below. Nilam Blair MD IMG DX ORDERABLES documented in this encounter Visit Diagnoses Not on filedocumented in this encounter Care Teams Spine Surgeon Relationship Specialty Start Date End Date Hoang Castellanos APRN [address] [place] [address] PCP - General Family Medicine 03/12/20 documented as of this encounter
--- OUTSIDE RECORDS SUMMARY | 2024-02-22 00:52 | XMS_ITS | Encounter Summary ---
[place] [address] Care Team Providers Care Rippler Name Role Phone Hoang Castellanos APRN Primary Care Provider [phone] Encounter Details Date Type Department Care Team (Late st Contact Info) Description 07/15/2020 Telephone Primary Care at [facility] [address] [place] [phone] Isadora Hidalgo LPN Social History Tobacco Use [...] Telephone Encounter - Isadora Hidalgo LPN - 07/15/2020 9:58 AM EST 07/14 [facility] called to report b/p for 07/09 140/80 07/11 136/70 07/14 154/80 documented in this encounter Plan of Treatment Not on file documented as of this encounter Visit Diagnoses Not on filedocumented in this encounter Care Teams Rippler Relationship Specialty Start Date End Date Hoang Castellanos, PRODUCT SUPPORT ANALYST [address] [place] [address] PCP - General Family Medicine 03/12/20 documented as of this encounter
--- OUTSIDE RECORDS SUMMARY | 2024-02-22 00:52 | XMS_ITS | Encounter Summary ---
Author Organization [facility] [place] [address] Care Team Providers Care Senior Linux Systems Administrator Name Role Phone Hoang Castellanos APRN Primary Care Provider Reason for Visit * Reason Onset Date Comments Medication Refill 08/12/2020 Encounter Details Date Type Department Care Team (Late st Contact Info) Description 08/12/2020 Refill Primary Care at [facility] [address] [facility] [place] [phone] Hoang Castellanos APRN [address] [place] [address] Social History Tobacco Use Types Packs/Day Years [...] Miscellaneous Notes * Telephone Encounter - Maria Esther Thomas CMA - 08/12/2020 2:42 PM EST Request received via fax from [facility] for meloxicam Last Prescription Fill Date: 03/23/2020 Number Dispensed and Refills: not on file Last Related Office Visit: 07/14/2020 (telehealth) Upcoming Appointment: Visit date not found No [...] on filedocumented in this encounter Care Teams Senior Linux Systems Administrator Relationship Specialty Start Date End Date Hoang Castellanos, MOTOR VEHICLE EMISSIONS INSPECTOR [address] [place] [address] PCP - General Family Medicine 03/12/20 documented as of this encounter
--- OUTSIDE RECORDS SUMMARY | 2024-02-22 00:52 | XMS_ITS | Encounter Summary ---
Author Organization [facility] [place] [address] Care Team Providers Care Shop Teacher Name Role Phone Hoang Castellanos APRN Primary Care Provider Reason for Visit * Reason Comments Follow-up Right intra-articula r distal radius and ulna fracture 02/04/20 Encounter Details Date Type Department Care Team (Late st Contact Info) Description 03/04/2020 9:00 AM EDT Office Visit Orthopaedics at [facility] [place] [address] Closed fracture of distal end of right radius, unspecified fracture morphology, sequela Social History Tobacco Use Types Packs/Day Years Used Date Smoking Tobacco: Every Day Cigarettes 0.5 45 Smokeless Tobacco: Never Alcohol Use Standard Drinks/Week Comments No 0 (1 standard drink = 0.6 oz pur e alcohol) Sex and Gender Information Value Date Recorded Sex Assigned at Not on file Gender Identity Not on file Sexual Orientation Not on file documented as of this encounter Last Filed Vital Signs Vital Sign Reading Time Taken Comments Blood Pressure - - Pulse - - Temperature - - Respiratory Rate - - Oxygen Saturation - - Inhaled Oxygen Concentration - - Weight 107.5 kg (236 lb 15.9 oz) 02/28/2020 2:52 PM EDT Height 163.8 cm (5' 4.49) 02/28/2020 2:52 PM ED T Body Mass Index 40.07 02/28/2020 2:52 PM EDT documented in this encounter Patient Instructions * Patient Instructions* Libertad Day - 03/04/2020 9:00 AM EDT Images from the original note were not included. Fracture and Cast Care Icing: ??? You should ice 20 -30 minutes every 2-3 hours, for first 3-4 days over a splint. ??? You can ice over a cast or splint as long as it does not wet the splint ??? Elevate extremity above level of heart to help reduce swelling. Pain Management: ??? Take Tylenol as needed for pain. ??? May take ibuprofen (Mortin, Advil) occasionally as needed for swelling. This can be taken with most pain medications. Cast/Splint Fit: ??? Cast and splints should fit snugly, so that they do not move on the extremity, but should not inhibit blood flow. ??? Any cast or splint that causes increased pain, from pressure points or restriction of blood flow call office. Hygiene: ??? Cast and splints should NOT get wet. ??? You may shower but casts will require a covering with a proper cast cover (which can be obtained from your local pharmacy or medical supply stores), or a plastic bag with a rubber band at end to stop water from flowing into it. Remember casts should NOT get wet. ??? Do not put anything down into the casts to scratch, or for any other reason. This could lead toa skin infection. When to call Office at : ??? The office is most effective to answer your questions or problems Tuesday through Tuesday 8:00 a.m. - 4:30 p.m. ??? Cast/splint gets wet. ??? Increased pain from cast as mentioned above. documented in this encounter Progress Notes * Libertad Day - 03/04/2020 9:00 AM EDT History of Present Illness or Injury: Jeannie Rico is an 59 y.o. year old female, for treatment and evaluation of Right intra-articular distal radius and ulna fracture 02/04/20. Patient reports she has been comfortable in the cast The old cast was removed ad the patients arm was washed at the table. REVIEW OF SYMPTOMS: Constitutional: Denies fever, chills, fatigue Cardiovascular: Denies chest pain Respiratory: Denies shortness of breath Gastrointestinal: Denies nausea, vomiting, diarrhea, constipation, or abdominal pain Neurovascular: no weakness, numbness or tingling Musculoskeletal: no pain, swelling, decreased ROM Psychiatric: Mood and affect appropriate Jeannie Rico presents to the cast room for a cast on per David . The patient's skin is intact. The patient is going into a well padded fiberglass short arm cast on the right side. The patient tolerated the procedure well. The patient was given instructions for cast care and was given instructionto call the clinic with any questions or concerns She will follow up in 2 weeks for cast removal and xray documented in this encounter Plan of Treatment Not on file documented as of this encounter Visit Diagnoses Diagnosis Closed fracture of distal end of right radius, unspecified fracture morphology, sequela documented in this encounter Care Teams Shop Teacher Relationship Specialty Start Date End Date Hoang Castellanos, SAM [address] [place] [address] PCP - General Family Medicine 12/07/19 03/11/20 documented as of this encounter
--- OUTSIDE RECORDS SUMMARY | 2024-02-22 00:52 | XMS_ITS | Encounter Summary ---
Author Organization [place] [address] Care Team Providers Care Brewery Representative Name Role Phone Hoang Castellanos APRN Primary Care Provider Reason for Referral * Occupational Therapy (Routine) - Closed Specialty Diagnoses / Procedures Referred By Vanita t Referred To Contact Occupational Therapy Diagnoses Closed fracture of distal end of right radius, unspecified fracture morphology, sequela Talita Hernandez MD [address] [place] [address] [facility] [address] [place] [address] Referral ID Status Reason Start Date Expiration Date V isits Requested Visits Authorized [id number] Closed Evaluate and Treat 05/01/2020 05/01/2021 12 12 Reason for Visit * Reason Comments Follow-up Right wrist intra-ar ticular distal radius fracture 02/04/20 Encounter Details Date Type Department Care Team (Late st Contact Info) Description 05/01/2020 11:30 AM EDT Office Visit [facility] at [facility] [address] [place] [id number] Talita Hernandez MD [address] [place] [address] Closed fracture of distal end of right [...] - Inhaled Oxygen Concentration - - Weight 107.1 kg (236 lb 1.8 oz) 04/22/2020 3:07 PM EDT Height 162.6 cm (5' 4.02) 04/22/2020 3:07 PM ED T Body Mass Index 40.51 04/22/2020 3:07 PM EDT documented in this encounter Patient Instructions * Patient Instructions* Eugenie Moreau MA - 05/01/2020 11:30 AM EDT Images from the original note were not included. ?? FUTURO??? Wrist Brace ?? Available online, or at your local pharmacy. documented in this encounter Progress Notes * Eugenie Moreau MA - 05/01/2020 11:30 AM EDT [facility] Follow up Note History of Present Illness or Injury: Jeannie Rico is an 59 y.o. year old female, being seen for evaluation and treatment of Right wrist intra-articular distal radius fracture02/04/20. Patient is in clinic for follow up of her fracture with xray first. She has been wearing her EXOS. Review of Systems Constitutional: Negative for chills, fatigue, fever and unexpected weight change. Respiratory: Negative for cough, chest tightness and shortness of breath. Cardiovascular: Negative for chest pain, palpitations and leg swelling. Gastrointestinal: Negative for abdominal pain, constipation, diarrhea, nausea and vomiting. Musculoskeletal: Negative for arthralgias, back pain, joint swelling, myalgias and neck pain. Neurological: Negative for weakness and numbness. Psychiatric/Behavioral: Negative for dysphoric mood and sleep disturbance. The patient is not nervous/anxious. Allergies Allergen Reactions ??? Morphine Shortness Of Breath ??? Sumatriptan Hives ??? Oxycodone Other (See Comments) drunk feeling, dizzy ??? Oxycodone-Acetaminophen Other (See Comments) dizziness, feels drunk ??? Chantix [Varenicline] psychotic ??? Imitrex [Sumatriptan Succinate] Hives ??? Prednisone Other reaction(s): aggitation Current Outpatient Medications on File Prior to Visit Medication Sig Dispense Refill ??? aspirin EC 81 mg Tablet, Delayed [...] Take 1 tablet by mouth daily. ??? azithromycin (Zithromax) 250 mg Tablet Day 1: Take 2 tablets daily, Day 2 - 5: Take one tablet daily 6 tablet 0 ??? alendronate (Fosamax) 70 mg Tablet Take 1 tablet by mouth every 7 days. Take in AM with full glass of water, on an empty stomach. Do not lie down for 30 min. 52 tablet 0 ??? meloxicam (MOBIC) 15 mg Tablet Take 1 tablet by mouth daily. ??? prazosin (Minipress) 2 mg Capsule Take 1 capsule by mouth daily. ??? isosorbide mononitrate CR (Imdur) 30 mg Tablet Sustained Release 24 hr Take 1 tablet by mouth daily. 90 tablet 3 ??? ibuprofen (Advil;Motrin) 800 mg Tablet Take 1 tablet by mouth every 8 hours as needed for Pain.90 tablet 5 ??? traZODone (Desyrel) 100 mg Tablet Take 1 tablet by mouth daily. ??? lisinopriL (Prinivil;Zestril) 10 mg Tablet Take 1 tablet by mouth daily. 90 tablet 3 ??? sertraline (ZOLOFT) 100 mg Tablet Take [...] in for TSH. 90 tablet 3 ??? lamoTRIgine (LaMICtal) 200 mg Tablet Take 1 tablet by mouth daily. 90 tablet 3 ??? clopidogrel (Plavix) 75 mg Tablet Take 1 tablet by mouth daily. 90 tablet 3 ??? tiotropium bromide (SPIRIVA RESPIMAT) 2.5 mcg/actuation Mist Inhale 2 puffs into the lungs nightly. 12 g 3 ??? fluticasone propion-salmeterol (ADVAIR DISKUS) 500-50 mcg/dose Disk with Device Inhale 1 puff into the lungs 2 times daily. 180 each 3 ??? albuterol (PROAIR HFA) 90 mcg/actuation HFA Aerosol Inhaler Inhale 2 puffs into the lungs every4 hours as needed. Use with spacer 1 Inhaler 11 ??? MARIJUANA ORAL Take by mouth. ??? traZODone (DESYREL) 150 mg Tablet Take 75 mg by mouth nightly. ??? [DISCONTINUED] aspirin EC 81 mg Tablet, Delayed Release (E.C.) Take 1 tablet by mouth daily. 90tablet 3 ??? [DISCONTINUED] metoprolol succinate XL (Toprol-XL) 25 mg Tablet Sustained Release 24 hr Take 0.5 tablets by mouth daily. 45 tablet 3 ??? [DISCONTINUED] cyanocobalamin, Vitamin B-12, (Vitamin B-12) 1,000 mcg Tablet Take 1 tablet by mouth once a week. 12 tablet 3 ??? [DISCONTINUED] cholecalciferol, Vitamin D3, (Vitamin D-3) 50 mcg (2,000 unit) Tablet Take 1 tablet by mouth daily. 90 tablet 3 ??? Miscellaneous Medical Supply Misc 1 walker on wheels with seat 1 each 0 No current facility-administered medications on file prior to visit. Visit Vitals Ht 162.6 cm (5' 4.02) Wt 107.1 kg (236 lb 1.8 oz) LMP (LMP Unknown) BMI 40.51 kg/m?? * Talita Hernandez MD - 05/01/2020 11:30 AM EDT [facility] Follow up Note History of Present Illness: Jeannie Rico is a 59 y.o. female who presents today for evaluation of Follow- up (Right wrist intra-articular distal radius fracture 02/04/20) The patient has what she would describe some arthritis achiness in her ulnar side of her wrist but no numbness or tingling. She did not like the XO and so switch to a different brace that she had. Radiographs ordered and reviewed today show that she has nearly fully healed the fracture. It did healwith a dorsal tilt but wrist extension and flexion or rotation is not painful to her. She is very pleased and says that she absolutely did not want surgery. Physical Exam: Ht 162.6 cm (5' 4.02) Wt 107.1 kg (236 lb 1.8 oz) LMP (LMP Unknown) BMI 40.51 kg/m?? Constitutional: Well-nourished, well-developed, alert in no acute distress Psychiatric: Mood and affect: The patient is pleasant and in a good mood Dermis:there skin is soft and supple without any rashes or lesions Inspection: There is no edema, erythema or synovitis. Palpation: There is no pain to palpation Vascular: There is normal capillary refill and temperature. Sensory: Sensation is intact and symmetric to light touch in all digits. Range of motion: ?? Digits:ROM to distal palmar crease index- little finger. WE/WF : Symmetric wrist extension and flexion at 50/40 with pronation and supination symmetric at 80/80 motor: ?? Muscle bulk: No atrophy ?? Muscle tone: Normal tone, no fasciculations ?? Manual motor grades: Palmar abduction, FPL, EPL, FDP to the index through little finger, EDC of the index through little finger, finger abduction, finger adduction, wrist extension, wrist flexion are 5 out of 5 Impression and Plan: The films were shown to the patient today. We will send her to therapy for strengthening and make arecommendation of a wrist wrap. She will follow-up with me on an as-needed basis. MD Hoang Scott documented in this encounter Plan of Treatment Scheduled Referrals Name Type Priority Associated Diagnoses Orde r Schedule Referral to Occupational Therapy Outpatient Referral Routine Closed fracture of distal end of right radius, unspecified fracture morphology, sequela Ordered: 05/01/2020 documented as of this encounter Visit Diagnoses Diagnosis Closed fracture of distal end of right radius, unspecified fracture morphology, sequela documented in this encounter Care Teams Brewery Representative Relationship Specialty Start Date End Date Hoang Castellanos, SAM [address] [place] [address] PCP - General Family Medicine 03/12/20 documented as of this encounter
--- OUTSIDE RECORDS SUMMARY | 2024-02-22 00:52 | XMS_ITS | Encounter Summary ---
[place] [address] Care Team Providers Care Manager Supply Name Role Phone Hoang Castellanos APRN Primary Care Provider Encounter Details Date Type Department Care Team (Late st Contact Info) Description 03/04/2020 Orders Only Orthopaedics at [facility] [address] [place] [address] Talita Hernandez MD [address] [facility] [place] [address] Closed fracture of distal end of right radius, unspecified fracture morphology, sequela (Primary Dx) Social History Tobacco Use Types Packs/Day Years [...] end of right radius, unspecified fracture morphology, sequela- Primary documented in this encounter Care Teams Manager Supply Relationship Specialty Start Date End Date Hoang Castellanos APRN [address] [facility] [place] [address] PCP - General Family Medicine 12/07/19 03/11/20 documented as of this encounter
--- OUTSIDE RECORDS SUMMARY | 2024-02-22 00:52 | XMS_ITS | Encounter Summary ---
Author Organization [facility] [place] [address] Care Team Providers Care Electric Container Tester Name Role Phone Hoang Castellanos APRN Primary Care Provider Encounter Details Date Type Department Care Team (Late st Contact Info) Description 04/08/2020 12:00 PM EDT Office Visit Physical Therapy at [address] [phone] Keely Childers PTA Low back pain, non-specific Social History Tobacco Use Types Packs/Day Years [...] as of this encounter Miscellaneous Notes * Treatment - Therapy - Keely Childers PTA - 04/08/2020 12:00 PM EDT Physical Therapy Daily Note Total treatment time: 45 minutes Total timed code treatment: 40 minutes Primary Insurance: Payor: MEDICARE / Plan: MEDICARE PART A & B / Product Type: *No Product type* / Re-Eval(s): Follow up visit for patient with the following Diagnosis and Pertinent Co-morbidities affecting Plan of Care: ICD-10-CM 1. Low back pain, non-specific M54.5 S: Pt reports that her back hurts today, she has not been able to walk as much lately because she has not felt good respiratory stuff and she may of re injured her thumb. Her has been using arolling pin for her ITB. Pt rates her pain symptoms today. O: Therex: Strength/Endurance/ROM (42953) 40 min ?? Supine Posterior/anterior pelvic rocks with positive results. ?? ITB foam roller STM x 1 minute with no pain to report. ?? ITB sideling stretch x 30 sec. ?? Lumbar bridging x 10 reps ?? Supine piriformis stretch 2 x 30 sec ?? Clamshells x 10 reps on right side. ?? Sideling AA Right hip straight leg abduction x 10 reps ?? Sideling Left hip abduction x 10 reps ?? LAQ x 10 reps ?? Sit to stand x 10 reps ?? Scapular retraction x 10 reps ?? Seat low back stretch 3 x 30 sec ?? Within // bars Standing hip abduction x 10 reps ?? Within // bars Heel raise x 10 reps ?? NuStep LE ROM level 1 for 5 minutes, VC for knee and hip alignment on right. A: Pt demonstrated increasing tolerance and positive progress to lumbar flexibility and core and LEstrengthening. Ms. Jeannie Rico will continue to benefit from skilled PT services for improved ROM and strength. ?? PLAN: Follow-up PT as needed. ?? Treatment plan: Manual Techniques, Soft Tissue Mobilization, Stretching, Joint Mobilization, Therapeutic Exercise, Body Mechanics, Posture and Home Exercise Program ?? documented in this encounter Plan of Treatment Not on file documented as of this encounter Visit Diagnoses Diagnosis Low back pain, non-specific documented in this encounter Care Teams Electric Container Tester Relationship Specialty Start Date End Date Hoang Castellanos APRN [address] [place] [address] PCP - General Family Medicine 03/12/20 documented as of this encounter
--- OUTSIDE RECORDS SUMMARY | 2024-02-22 00:52 | XMS_ITS | Encounter Summary ---
Author Organization [facility] [place] [address] Care Team Providers Care Php Lamp Developer Name Role Phone Hoang Castellanos APRN Primary Care Provider Encounter Details Date Type Department Care Team (Late st Contact Info) Description 03/26/2020 3:00 PM EDT Office Visit Physical Therapy at [address] [phone] Keely Childers PTA Low back pain, non-specific [...] - Therapy - Keely Childers PTA - 03/26/2020 3:00 PM EDT Images from the original note were not included. Physical Therapy Daily Note Total treatment time: 45 minutes Total timed code treatment: 45 minutes Primary Insurance: Payor: MEDICARE / Plan: MEDICARE PART A & B / Product Type: *No Product type* / Re-Eval(s): Follow up visit for patient with the following Diagnosis and Pertinent Co-morbidities affecting Plan of Care: ICD-10-CM 1. Low back pain, non-specific M54.5 S: Pt reports that her back feels better, however she is currently dragging her foot. When her leg swells up she is unable to lift her leg up to put her close on. She has no pain. . Pt rates her pain symptoms today. O: Therex: Strength/Endurance/ROM (75584) 45 min ?? ITB foam roller STM x 5 minutes ?? ITB sideling stretch 2 x 30 sec. ?? Supine piriformis stretch 2 x 30 sec ?? Posterior pelvic tilt progressing to lumbar bridging x 10 reps. ?? Sit to stand x 10 reps with VC for technique ?? Seat low back stretch 3 x 30 sec ?? Sideling left hip straight leg abduction x 10 reps. (unable to perform on Right.) ?? Clamshells x 10 reps on right side. ?? Right LE strength: ?? Right quad ~ 3+ ?? Right hamstring ~ 4 ?? Right hip abduction ~ 3- HEP's updated. A: Pt presented with decrease complaint of low back symptoms, however has increase R LE weakness and edema. She feels as if her leg is heavy and hard to move around. Right IT band was observed to be taught and painful to light foam roller STM. Gross muscle strength testing on the right LE observed to be decreased. Ms. Jeannie Rico will continue to benefit from skilled PT services for improved ROM and strength. EXERCISES: ? PLAN: Follow-up PT as needed. Will consult with Barry Spring DPT supervising PT prior to next vist. ?? Treatment plan: Manual Techniques, Soft Tissue Mobilization, Stretching, Joint Mobilization, Therapeutic Exercise, Body Mechanics, Posture and Home Exercise Program ?? documented in this encounter Plan of Treatment Not on file documented as of this encounter Visit Diagnoses Diagnosis Low back pain, non-specific documented in this encounter Care Teams Php Lamp Developer Relationship Specialty Start Date End Date Hoang Castellanos, ASSOCIATE ENGINEER [address] [place] [address] PCP - General Family Medicine 03/12/20 documented as of this encounter
--- OUTSIDE RECORDS SUMMARY | 2024-02-22 00:52 | XMS_ITS | Encounter Summary ---
Author Organization [facility] [place] [address] Care Team Providers Care Band Splitter Name Role Phone Hoang Castellanos APRN Primary Care Provider Encounter Details Date Type Department Care Team (Late st Contact Info) Description 04/22/2020 Orders Only Orthopaedics at [facility] [address] [place] [address] Talita Hernandez MD [address] [facility] [place] [address] Closed fracture of distal end of right [...] as of this encounter Results * XR Wrist 3 Views Right (05/01/2020 10:52 AM EDT) Anatomical Region Laterality Modality Right Digital Radiogra phy Impressions 05/01/2020 11:13 AM EDT Healing distal radius fracture with unchanged dorsal angulation. I have personally reviewed the image(s) and the resident's interpretation and agree with the findings, Odell Monsalve MD at 05/01/2020 11:13 AM Thank you for letting us participate in the care of this patient. For questions regarding this report, please contact the number below. ? Electronically signed by: Odell Monsalve MD, [facility] ([phone]), at 05/01/2020 11:13 AM Narrative 05/01/2020 11:13 AM EDT EXAMINATION: XR WRIST 3 VIEWS RIGHT CLINICAL HISTORY: Right wrist fracture assess healing pa/lateral/ oblique right wrist TECHNIQUE: 3 views RIGHT wrist COMPARISON: Dated 04/07/2020 FINDINGS: Redemonstrated comminuted fracture of the distal right radius with unchanged dorsal angulation or tilt of the radiocarpal joint. Persistent ulnar positive variance. Unchanged tiny ulnar styloid process osseous fragment. The radial fracture is less conspicuous on the [facility] radiograph. Procedure Note Odell Monsalve MD - 05/01/2020 EXAMINATION: XR WRIST 3 VIEWS RIGHT CLINICAL HISTORY: Right wrist fracture assess healing pa/lateral/ oblique right wrist TECHNIQUE: 3 views RIGHT wrist COMPARISON: Dated 04/07/2020 FINDINGS: Redemonstrated comminuted fracture of the distal right radius withunchanged dorsal angulation or tilt of the radiocarpal joint. Persistent ulnarpositive variance. Unchanged tiny ulnar styloid process osseous fragment. Theradial fracture is less conspicuous on the [facility] radiograph. IMPRESSION Healing distal radius fracture with unchanged dorsal angulation. I have personally reviewed the image(s) and the resident's interpretationand agree with the findings, Odell Monsalve MD at 05/01/2020 11:13 AM Thank you for letting us participate in the care of this patient. Forquestions regarding this report, please contact the number below. Talita Hernandez MD IMG DX ORDERABLES documented in this encounter Visit Diagnoses Diagnosis Closed fracture of distal end of right radius, unspecified fracture morphology, sequela- Primary Closed fracture of distal end of right radius, unspecified fracture morphology, sequela documented in this encounter Care Teams Band Splitter Relationship Specialty Start Date End Date Hoang Castellanos, CAR PAINTER [address] [place] [address] PCP - General Family Medicine 03/12/20 documented as of this encounter
--- OUTSIDE RECORDS SUMMARY | 2024-02-22 00:52 | XMS_ITS | Encounter Summary ---
Author Organization [facility] [place] [address] Care Team Providers Care Tip Bander Name Role Phone Hoang Castellanos APRN Primary Care Provider Reason for Visit * Reason Comments Follow-up Right intra-articula r distal radius fracture 02/04/20 Encounter Details Date Type Department Care Team (Late st Contact Info) Description 03/19/2020 10:45 AM EDT Office Visit Orthopaedics at [facility] [address] [place] [address] Talita Hernandez MD [address] [place] [address] Closed fracture of distal end of right [...] Weight 107.1 kg (236 lb 1.8 oz) 03/14/2020 1:48 PM EDT Height 162.6 cm (5' 4.02) 03/14/2020 1:48 PM ED T Body Mass Index 40.51 03/14/2020 1:48 PM EDT documented in this encounter Progress Notes * Libertad Day Vivi - 03/19/2020 10:45 AM EDT [facility] Follow up Note History of Present Illness or Injury: Jeannie Rico is an 59 y.o. year old female being seen for treatment and evaluation of Right intra-articular distal radius fracture 02/04/20. Patient is in clinic for cast removal and xray. She has been casted for 6 weeks. She did not want any surgical intervention. She has been compliant with the cast. She is not having any pain. Review of Systems Constitutional: Negative for chills, [...] to Visit Medication Sig Dispense Refill ??? Miscellaneous Medical Supply Misc 1 walker [...] the lungs nightly. 12 g 3 ??? metoprolol succinate (TOPROL-XL) 25 mg Tablet Sustained Release 24 hr Take 0.5 tablets by mouthdaily. 45 tablet 3 ??? cyanocobalamin, vitamin B-12, (VITAMIN B-12) 1,000 mcg Tablet Take 1 tablet by mouth once a week. 12 tablet 3 ??? aspirin 81 mg Tablet, Delayed Release (E.C.) Take 1 tablet by mouth daily. 90 tablet 3 ??? fluticasone propion-salmeterol (ADVAIR DISKUS) 500-50 mcg/dose Disk with Device Inhale 1 puff into the lungs 2 times daily. 180 each 3 ??? albuterol (PROAIR HFA) 90 mcg/actuation HFA Aerosol Inhaler Inhale 2 puffs into the lungs every4 hours as needed. Use with spacer 1 Inhaler 11 ??? isosorbide mononitrate (IMDUR) 30 mg Tablet Sustained Release 24 hr Take 1 tablet by mouth daily. 90 tablet 3 ??? alendronate (FOSAMAX) 70 mg Tablet Take 1 tablet by mouth every 7 days. Take in AM with full glass of water, on an empty stomach. Do not lie down for 30 min. 52 tablet 0 ??? MARIJUANA ORAL Take by mouth. ??? traZODone (DESYREL) 150 mg Tablet Take 75 mg by mouth nightly. No current facility-administered medications on file prior to visit. Visit Vitals Ht 162.6 cm (5' 4.02) Wt 107.1 kg (236 lb 1.8 oz) LMP (LMP Unknown) BMI 40.51 kg/m?? * Talita Hernandez MD - 03/19/2020 10:45 AM EDT [facility] Follow up Note History of Present Illness: Jeannie Rico is a 59 y.o. female who presents today for evaluation of Follow- up (Right intra-articular distal radius fracture 02/04/20) The patient is in no pain. She has tolerated the cast well and thinks she is doing well. The radiographs today show that she is now ulnar positive where she had not been before on the lateral view itdoes not show a significant change in the dorsal tilt however. The PA view shows that she is healing but has not fully healed the lunate facet fragment. After discussing things with the patient we will place her back in a short arm cast for another 2 weeks and then try to convert this to either an XO or a wrist splint with therapy. Physical Exam: Ht 162.6 cm (5' 4.02) [...] in all digits. Range of motion: ?? Digits: Full ROM to distal palmar crease index- little finger. Motor: ?? Muscle bulk: No atrophy ?? Muscle tone: Normal tone, no fasciculations ?? Manual motor grades: Palmar abduction, FPL, EPL, FDP to the index through little finger, EDC of the index through little finger, finger abduction, finger adduction are 5 out of 5 Impression and Plan: The patient still does not desire surgery and says she may have been using the hand more than she had expected. Since she is asymptomatic right now she will continue with casting and then hopefully be converted to a splint at her next visit. Procedure: The [employer] placed the patient in a waterproof fiberglass short arm cast for the right distal radius fracture MD Hoang Scott documented in this encounter Plan of Treatment Not on file documented as of this encounter Results * XR Wrist 2 views Right (04/07/2020 8:14 AM EDT) Anatomical Region Laterality Modality Hand, Wrist Right Digital Radiogra phy Impressions 04/07/2020 8:21 AM EDT Ongoing healing without change in alignment. Thank you for letting us participate in the care of this patient. For questions regarding this report, please contact the number below. ? Electronically signed by: Bandar Tejeda MD, [facility] ([phone]), at 04/07/2020 8:21 AM Narrative 04/07/2020 8:21 AM EDT EXAMINATION: XR WRIST 2 VIEWS RIGHT CLINICAL HISTORY: right distal radius fracture assess healing pa/lateral right wrist TECHNIQUE: 2 views RIGHT wrist COMPARISON: Right wrist radiographs 03/19/2020 FINDINGS: Redemonstration of comminuted, impacted, intra-articular distal right radial fracture with increased density about the fracture line margins. ??No change in alignment with persistent ulnar positive variance. Dorsal angulation is also unchanged. Unchanged ulnar styloid process fracture fragment. Procedure Note Bandar Tejeda MD - 04/07/2020 EXAMINATION: XR WRIST 2 VIEWS RIGHT CLINICAL HISTORY: right distal radius fracture assess healing pa/lateral right wrist TECHNIQUE: 2 views RIGHT wrist COMPARISON: Right wrist radiographs 03/19/2020 FINDINGS: Redemonstration of comminuted, impacted, intra-articular distal rightradial fracture with increased density about the fracture line margins. Nochange in alignment with persistent ulnar positive variance. Dorsal angulation isalso unchanged. Unchanged ulnar styloid process fracture fragment. IMPRESSION Ongoing healing without change in alignment. Thank you for letting us participate in the care of this patient. Forquestions regarding this report, please contact the number below. Electronically signed by: Bandar Tejeda MD, [facility]([phone]), at 04/07/2020 8:21 AM Talita Hernandez MD IMG DX ORDERABLES documented in this encounter Visit Diagnoses Diagnosis Closed fracture of distal end of right radius, unspecified fracture morphology, sequela Closed fracture of distal end of right radius, unspecified fracture morphology, sequela documented in this encounter Care Teams Tip Bander Relationship Specialty Start Date End Date Hoang Castellanos, SAM [address] [place] [address] PCP - General Family Medicine 03/12/20 documented as of this encounter
--- OUTSIDE RECORDS SUMMARY | 2024-02-22 00:52 | XMS_ITS | Encounter Summary ---
Author Organization [facility] Address [facility] [place] [address] Care Team Providers Care Nurse Orthopedic Name Role Phone Hoang Castellanos APRN Primary Care Provider Reason for Referral * Home Health Care (Routine) - Closed Specialty Diagnoses / Procedures Referred By Contac t Referred To Contact Home Health Agency Diagnoses Benign essential hypertension Generalized weakness Hoang Castellanos APRN [address] [place] [address] Visiting Nurse, Assoc [facility] & [address] [address] Referral ID Status Reason Start Date Expiration Date V isits Requested Visits Authorized [id number] Closed Continuity of Care 07/07/2020 01/03/2021 1 1 Reason for Visit * Reason Onset Date Comments Triage 07/07/2020 Encounter Details Date Type Department Care Team ([facility] Contact Info) Description 07/07/2020 Telephone Primary Care at [facility] [address] [place] [address] Jeannie Luciano, stave mill hand Social History Tobacco Use Types Packs/Day Years [...] Telephone Encounter - Isadora Hidalgo LPN - 07/07/2020 10:32 AM EST Per RA She should still be taking Toprol XL 12.5mg and Lisinopril 10mg daily. We should check and make sure she is taking this. If so, then I would recommend increasing Lisinopril to 20mg daily. Whenis P.T. back in the home? We can definitely add nursing to recheck BP as well. Spoke with Jeannie she is taking the medications will increase the lisinopril needs new Rx for increase of dose, she does want the [facility] nursing for b/p check, doesn't want to do in person appointment okwith telehealth she has one tomorrow with her family caseworker and wants RA to be part of that I explain to her RA has a full schedule tomorrow and i'm not sure if that is going to be possible * Telephone Encounter - Jeannie Luciano RN - 07/07/2020 10:14 AM EST Images from the original note were not included. Called pt and her mail order pharmacy. She is taking both BP meds daily in the AM. However, she said her BP the day VN took it was before she had taken her medications for the day. oHang Castellanos, MACHINE HEEL SEAT FITTER to [facility] Primary Care Nurse ?? 07/07/20 9:29 AM She should still be taking Toprol XL 12.5mg and Lisinopril 10mg daily. We should check and make sure she is taking this. If so, then I would recommend increasing Lisinopril to 20mg daily. When is P.T. back in the home? We can definitely add nursing to recheck BP as well. Thanks * Telephone Encounter - Jeannie Luciano RN - 07/07/2020 8:49 AM EST Pt called through triage because [facility] PT made a visit with her over the weekend and her BP was 184/100; no headache, no SOB. She did go to ED last week for f/u fall as well ( no injuries). Jeannie said she does have anxiety and pain from the fall and figured it was because of that but asked if her BP medication should be restarted. Coming in to the office is difficult for her and she asked if she could do tele- health. She also only has PT w/[facility] in home. documented in this encounter Plan of Treatment Scheduled Referrals Name Type Priority Associated Diagnoses Orde r Schedule Referral to Home Health - Clinic Use Outpatient Referral Routine Benign essential hypertension Generalized weakness Ordered: 07/07/2020 documented as of this encounter Visit Diagnoses Diagnosis Benign essential hypertension Essential hypertension, benign Generalized weakness Other malaise and fatigue documented in this encounter Care Teams Nurse Orthopedic Relationship Specialty Start Date End Date Hoang Castellanos, SAM [address] [place] [address] PCP - General Family Medicine 03/12/20 documented as of this encounter
--- OUTSIDE RECORDS SUMMARY | 2024-02-22 00:52 | XMS_ITS | Encounter Summary ---
[place] [address] Care Team Providers Care Delivery Man Name Role Phone Hoang Castellanos APRN Primary Care Provider Encounter Details Date Type Department Care Team (Late st Contact Info) Description 08/28/2020 Telephone Primary Care at [facility] [address] [place] [id number] Shannon Chung, RN Social History Tobacco Use Types Packs/Day [...] Addendum Note - Shannon Chung RN - 09/01/2020 1:39 PM ESTAddended by: SHANNON CHUNG on: 09/01/2020 01:39 PM Modules accepted: Orders * Telephone Encounter - Shannon Chung RN - 09/01/2020 1:39 PM EST Patient notified, new rx sent. * Telephone Encounter - Shannon Chung RN - 09/01/2020 1:38 PM EST Hoang Castellanos APRN to Me ?? 9:27 AM Please call patient and tell her that we should increase Lisinopril from 20mg daily to 40mg daily as her BP is elevated above goal. Thanks * Telephone Encounter - Shannon Chung RN - 08/28/2020 3:21 PM EST [facility]OW Alatorre [facility] in regards to Jeannie Renny Rico. Update: visiting nurses called in vitals. 08/28/20: BP 156/88, HR 55 08/22/20: BP 164/93 BP Readings from Last 3 Encounters: 07/14/20 150/80 07/03/20 139/65 04/03/20 125/69 documented in this encounter Plan of Treatment Not on file documented as of this encounter Visit Diagnoses Diagnosis Benign essential hypertension Essential hypertension, benign documented in this encounter Care Teams Delivery Man Relationship Specialty Start Date End Date Hoang Castellanos APRN [address] [place] [address] PCP - General Family Medicine 03/12/20 documented as of this encounter
--- OUTSIDE RECORDS SUMMARY | 2024-02-22 00:52 | XMS_ITS | Encounter Summary ---
Author Organization [place] [address] Care Team Providers Care Counterintelligence Agent Name Role Phone Hoang Castellanos APRN Primary Care Provider Reason for Visit * Reason Comments Follow Up Fracture RIGHT distal radius fx 02/04/20 Encounter Details Date Type Department Care Team (Late st Contact Info) Description 04/11/2020 8:30 AM EDT Office Visit Orthopaedics at [facility] [place] [phone] Closed fracture of distal end of right [...] as of this encounter Progress Notes * Irasema Lou RN - 04/11/2020 8:30 AM EDT [facility] Follow up Note History of Present Illness or Injury: Jeannie Rico is an 59 y.o. year old female, is in clinic for follow up RIGHT distal radius fracture sustained 02/04/20 for an exos splint application Patient reports no pain. Patient also reports the current wrist wrap that she has been wearing is not providing support in comparison to the cast that she previously had. Patient arrived to clinic with wrist wrap on/dry/intact. Patient fitted for exos splint and indicated that it is comfortable. Patient provided instructions surrounding wearing this splint and when totake it off. Patient expressed understanding of instructions. Patient will follow up in 3 weeks time with repeat xrays with Dr. Hernandez. Review of Systems All other systems reviewed and are negative. Allergies Allergen Reactions ??? Morphine Shortness Of Breath ??? Sumatriptan Hives ??? Oxycodone Other (See Comments) drunk feeling, dizzy ??? Oxycodone-Acetaminophen Other (See Comments) dizziness, feels drunk ??? Chantix [Varenicline] psychotic ??? Imitrex [Sumatriptan Succinate] Hives ??? Prednisone Other reaction(s): aggitation Current Outpatient Medications on File Prior to Visit Medication Sig Dispense Refill ??? azithromycin (Zithromax) 250 mg Tablet Day [...] 90 tablet 3 ??? Miscellaneous Medical Supply [facility] 1 walker on wheels with seat 1 [...] on file prior to visit. Visit Vitals LMP (LMP Unknown) documented in this encounter Plan of Treatment Not on file documented as of this encounter Visit Diagnoses Diagnosis Closed fracture of distal end of right radius, unspecified fracture morphology, sequela documented in this encounter Care Teams Counterintelligence Agent Relationship Specialty Start Date End Date Hoang Castellanos, AIRCRAFT MECHANIC [employer] [address] [place] [address] PCP - General Family Medicine 03/12/20 documented as of this encounter
--- OUTSIDE RECORDS SUMMARY | 2024-02-22 00:52 | XMS_ITS | Encounter Summary ---
Author Organization [facility] [place] [address] Care Team Providers Care Audiometric Technician Name Role Phone Hoang Castellanos APRN Primary Care Provider Reason for Referral * Consultation (Routine) - Closed Specialty Diagnoses / Procedures Referred By Contac t Referred To Contact Neurology Diagnoses Dizziness Hoang Castellanos APRN [address] [place] [address] [facility] [address] [place] [id number] Referral ID Status Reason Start Date Expiration Date V isits Requested Visits Authorized [id number] Closed Specialty Service Requested 03/04/2020 03/04/2021 6 6 * Physical Therapy (Routine) - Closed Specialty Diagnoses / Procedures Referred By Contac t Referred To Contact Physical Therapy Diagnoses Chronic right-sided low back pain without sciatica Hoang Castellanos APRN [address] [place] [address] [facility] [address] [place] [address] Referral ID Status Reason Start Date Expiration Date V isits Requested Visits Authorized [id number] Closed Evaluate and Treat 03/04/2020 03/04/2021 12 12 Reason for Visit * Reason Comments Hypertension Back Pain Dizziness Encounter Details Date Type Department Care Team (Late st Contact Info) Description 03/04/2020 11:00 AM EDT [facility] [place] [address] Hoang Castellanos, CHIEF STRATEGY OFFICER [address] [place] [address] Dizziness; Chronic right-sided low back pain without sciatica; Healthcare maintenance; Type 2 diabetes mellitus without complication, without [...] Sign Reading Time Taken Comments Blood Pressure 140/76 03/04/2020 10:35 AM EDT Pulse 44 03/04/2020 10:35 AM EDT Temperature - - Respiratory Rate 14 03/04/2020 10:3 5 AM EDT Oxygen Saturation 97% 03/04/2020 10: 35 AM EDT Inhaled Oxygen Concentration - - Weight 107.1 kg (236 lb 3.2 oz) 020 10:35 AM EDT Height 162.6 cm (5' 4) 03/04/2020 10:3 5 AM EDT Body Mass Index 40.54 03/04/2020 10:35 AM EDT documented in this encounter Progress Notes * Hoang Castellanos APRN - 03/04/2020 11:00 AM EDT Subjective: HPI: Jeannie Rico is a 59 y.o. female presenting to the [facility] Primary Care Clinic HPI HYPERTENSION: She has not been checking her blood pressure at home. She taking medications as instructed, no medication side effects noted, no TIA's, no chest pain on exertion, no dyspnea on exertion, no swelling of ankles She is following a low salt diet. She Doing what I can to exercise. Right wrist fx Healing well Changed cast this AM THC in elderberry syrup Dizziness: Patient states the dizziness is still full force, but have had it for years- present her entire life Caused by intercranial hypertension - 2007 Still experiencing the dizziness even after lowering dose of Lisinopril Lightheaded like she is going to fall Occasional FELTON-top vertex/frontal Diagnosed with intracranial hypertension as cause of dizziness-last OV with Neurology in 2004 Back pain: Patient states that back pain is better had the MRI. 02/19/2020. States it is feeling better Back will freeze at times-sharp pain on right side-unable to walk for a couple seconds Still doing P.T. for neck pain at home-doing well overall-was at functional rehab at [facility]: Review of Systems Objective: VS: BP 140/76 (BP Location (NBP): Left arm, Patient Position: Sitting, BP Cuff Sizes: Large Adult (32-43 cm)) Pulse (!) 44 Resp 14 Ht 162.6 cm (5' 4) Wt 107.1 kg (236 lb 3.2 oz) LMP (LMP Unknown) SpO2 97% BMI 40.54 kg/m?? Physical Exam Vitals signs reviewed. Constitutional: General: She is awake. Appearance: Normal appearance. She is well-developed and well-groomed. She is morbidly obese. HENT: Head: Normocephalic and atraumatic. Cardiovascular: Rate and Rhythm: Normal rate and regular rhythm. Pulses: Normal pulses. Radial pulses are 2+ on the right side and 2+ on the left side. Heart sounds: Normal heart sounds, S1 normal and S2 normal. Pulmonary: Effort: Pulmonary effort is normal. Breath sounds: Normal breath sounds. Musculoskeletal: Right lower leg: No edema. Left lower [...] Plan: Jeannie was seen today for hypertension, back pain and dizziness. Diagnoses and all orders for this visit: Dizziness - [facility] 1 walker on wheels with seat Chronic right-sided low back pain without sciatica - ibuprofen (Advil;Motrin) 800 mg Tablet; Take 1 tablet by mouth every 8 hours as needed for Pain. - [facility] 1 walker on wheels with seat Healthcare maintenance - Shingrix Zoster Vaccine, IM Type 2 diabetes mellitus without complication, without long-term current use of insulin - CMP w/fasting Glucose; Future - Hemoglobin A1c; Future Will send Rx for walker with a seat to [facility] Referral back to Neurology for f/u on dizziness Reduce Tizanidine to 4mg PRN use only Forms redone for medicinal MJ use There are no Patient Instructions on file for this visit. FOLLOWUP: Return in about 4 months (around 07/04/2020) for prediabetes . documented in this encounter Plan of Treatment Scheduled Referrals Name Type Priority Associated Diagnoses Orde r Schedule Referral to Physical Therapy Outpatient Referral Routine Chronic right-sided low back pain without sciatica Ordered: 03/04/2020 Referral to Neurology Outpatient Referral Routine Dizziness Ordered: 03/04/2020 documented as of this encounter Visit Diagnoses Diagnosis Dizziness Dizziness and giddiness Chronic right-sided low back pain without sciatica Healthcare maintenance Routine general medical examination at a health care facility Type 2 diabetes mellitus without complication, without long-term current use of insulin documented in this encounter Care Teams Audiometric Technician Relationship Specialty Start Date End Date Hoang Castellanos APRN [address] [place] [address] PCP - General Family Medicine 12/07/19 03/11/20 documented as of this encounter
--- OUTSIDE RECORDS SUMMARY | 2024-02-22 00:52 | XMS_ITS | Encounter Summary ---
[place] [address] Care Team Providers Care Signal And Communications Maintainer Name Role Phone Hoang Castellanos APRN Primary Care Provider Encounter Details Date Type Department Care Team (Late st Contact Info) Description 04/03/2020 Telephone Primary Care at [facility] [place] [phone] Isadora Hidalgo LPN Social History Tobacco Use [...] Telephone Encounter - Isadora Hidalgo LPN - 04/03/2020 4:56 PM EDT Spoke with Jeannie she wants you to know she got zithromax today You were tested for COVID-19. We will call you with the test results. If you have a [employer] account, you can see your results as soon as they are completed. This may take 1-2 days. You and household members should please stay quarantined at home while waiting for your results. If you test positive (Detected) for COVID-19 (SARS-CoV2 RNA), you may leave home after: (1) you have had no fever for at least 24 hours without using medicine that lowers fevers AND (2) other symptoms, such as cough or shortness of breath, have improved AND (3) 10 days have passed since you first had symptoms. If you don't have symptoms (you are asymptomatic), you must wait 10 days since the time you tested positive. If you test negative (Not Detected) for COVID-19 (SARS-CoV2 RNA), please follow the guidelines for your particular result. Symptomatic, no known COVID-19 exposure: You were tested for COVID-19 while you had symptoms, and your test was negative. ??? You should stay at home until your symptoms have improved and you have had no fever for at least 24 hours. Call your primary care provider if your symptoms get worse or don't go away. Symptomatic or asymptomatic, known COVID-19 exposure: You were tested for COVID- 19, with or withoutsymptoms, and you had contact with someone who was known to have COVID-19. You must quarantine for 14 days since contact. ??? If the person who had COVID-19 is a household member, you must quarantine for 14 days after they have finished their quarantine, as explained above. This will take at least 24 days. Asymptomatic, no known COVID-19 exposure: You were tested for COVID-19 while you did not have symptoms. You do not have to quarantine. ??? Asymptomatic testing for Pre-Op: Please consult with your surgeon but it is advised you continue to quarantine from the time of testing up until your surgical date. Please follow the precautions below: WHO (people and pets to take into consideration): ??? The Department of Health has advised that you MUST self-isolate until your results are known lurdes negative ??? You MUST restrict activities outside your home, except for getting medical care. Do not go to work, school or public areas. Avoid using public transportation, ride-sharing or taxis. ??? As much as possible, you should stay in a specific room away from other people in your home. You should also use a separate bathroom, if available. ??? As advised by the Centers for Disease Control and Prevention (CDC), you must stay in your home and minimize contact with others to avoid spreading this infection. WHAT (objects/surfaces to take into consideration): ??? Avoid sharing personal household items. You should not share dishes, drinking glasses, cups, eating utensils, towels, or bedding with other people or pets in your home. After using these items, they should be washed thoroughly with soap and water. ??? Clean all high-touch surfaces every day. High-touch surfaces include counters, tabletops, doorknobs, bathroom fixtures, toilets, phones, keyboards, tablets, and bedside tables. ??? Use household cleaning spray or wipe to clean high-touch surfaces; follow the label instructions. HOW (guidelines for hand washing and germ management): ??? Clean your hands often. Wash your hands with soap and water for at least 20 seconds. If soap and water are not available, clean your hands with an alcohol- based hand market development trainer that contains at least 60% alcohol, covering all surfaces of your hands and rubbing them together until they feel dry. Soap and water should be used preferentially if hands are visibly dirty. ??? Avoid touching your eyes, nose, and mouth with unwashed hands. ??? Cover your mouth and nose with a tissue when you cough or sneeze. ??? Throw used tissue in a lined trash can. Immediately wash your hands with soap and water or handsanitizer. WHEN (guidelines for seeking medical care): ??? Call your doctor if you start to feel worse (increased congestion, coughing or fevers). ??? Seek emergency medical treatment if you have difficulty breathing. ??? Call ahead if possible and advise health care workers of possible exposure to COVID-19. ??? Ask for a facemask as you enter the facility. ??? These steps will help the healthcare provider's office to keep other people in the office or waiting room from getting infected or exposed. ??? If possible, put on a facemask before emergency medical services arrive. You MUST review the instructions provided on the website below by the [place] Department of Health and Human services regarding self quarantine. If you reside in a state other than [place], please review your state's specific self-quarantine instructions. https://www.[facility].[place].gov/dphs/cdcs/documents/dceu-yceudzupmz-tcyhn.pdf * Telephone Encounter - Isadora Hidalgo LPN - 04/03/2020 4:56 PM EDT ----- Message from Hoang Castellanos APRN sent at 04/03/2020 4:45 PM EDT ----- Please inform patient of normal lab results. Negative covid. documented in this encounter Plan of Treatment Not on file documented as of this encounter Visit Diagnoses Not on filedocumented in this encounter Additional Health Concerns Infection Onset Date Last Indicated Resolved Time Rule Out COVID-19 04/03/2020 04/03/2020 04/03/2020 11:21 AM EDT documented as of this encounter Care Teams Signal And Communications Maintainer Relationship Specialty Start Date End Date Hoang Castellanos APRN [address] [place] [address] PCP - General Family Medicine 03/12/20 documented as of this encounter
--- OUTSIDE RECORDS SUMMARY | 2024-02-22 00:52 | XMS_ITS | Encounter Summary ---
[place] [address] Care Team Providers Care Front Office Developer Name Role Phone Hoang Castellanos APRN Primary Care Provider Reason for Visit * Reason Onset Date Comments Medication Refill 04/22/2020 Medication Refill 04/28/2020 Encounter Details Date Type Department Care Team (Late st Contact Info) Description 04/22/2020 Refill Primary Care at [facility] [place] [phone] Isadora Hidalgo LPN B12 deficiency Social History Tobacco Use Types [...] encounter Miscellaneous Notes * Addendum Note - Meli Avila RN - 04/28/2020 11:08 AM EDTAddended by: MELI AVILA on: 04/28/2020 11:08 AM Modules accepted: Orders * Telephone Encounter - Isadora Hidalgo LPN - 04/22/2020 2:19 PM EDT Received a fax from [facility] Requesting Rx for aspirin metoprolol vitamin B12, vitamin D3 This prescription got send to [facility] clarify with patient she uses [facility] pharmacy for all her medications only time she uses [facility] is if she needs antibiotics. documented in this encounter Plan of Treatment Not on file documented as of this encounter Visit Diagnoses Diagnosis B12 deficiency Other B-complex deficiencies documented in this encounter Care Teams Front Office Developer Relationship Specialty Start Date End Date Hoang Castellanos, ACID CONDENSER [address] [place] [address] PCP - General Family Medicine 03/12/20 documented as of this encounter
--- OUTSIDE RECORDS SUMMARY | 2024-02-22 00:52 | XMS_ITS | Encounter Summary ---
Author Organization [facility] [place] [address] Care Team Providers Care Artificial Snow Making Machine Operator Name Role Phone Hoang Castellanos APRN Primary Care Provider Reason for Visit * Reason Comments URI Encounter Details Date Type Department Care Team (Late st Contact Info) Description 04/03/2020 11:30 AM EDT Office Visit Primary Care at [facility] [address] [place] [phone] Karl Rowe MD [address] [place] [address] Suspected COVID-19 virus infection; Chronic obstructive pulmonary disease, unspecified COPD type [...] Sign Reading Time Taken Comments Blood Pressure 125/69 04/03/2020 10:40 AM EDT Pulse 56 04/03/2020 10:40 AM EDT Temperature 37.3 ??C (99.1 ??F) 04/03/2020 10:40 AM E DT Respiratory Rate - - Oxygen Saturation 95% 04/03/2020 10:40 AM EDT Inhaled Oxygen Concentration - - Weight - - Height - - Body Mass Index - - documented in this encounter Progress Notes * Karl Rowe MD - 04/03/2020 11:30 AM EDT Subjective: HPI: Jeannie Rico is a 59 y.o. female presenting to the [facility] URI This is a new problem. The current episode started in the past 7 days. The problem has been waxing and waning. There has been no fever. Associated symptoms include coughing, diarrhea, rhinorrhea and a sore throat. She has tried antihistamine and inhaler use for the symptoms. The treatment provided no relief. Cough slightly worse than usual past 7 days Has COPD Wheezing more at night Raising sputum a little more than usual Yellow in color No CP Some AVILA ROS: Review of Systems Constitutional: Positive for fatigue. HENT: Positive for rhinorrhea and sore throat. Respiratory: Positive for cough. Gastrointestinal: Positive for diarrhea. Objective: VS: BP 125/69 Pulse 56 Temp 37.3 ??C (99.1 ??F) LMP (LMP Unknown) SpO2 95% Physical Exam HEENT Eyes: Conjunctiva clear no injection no icterus Heart: Regular no murmur Lungs: Clear to auscultation bilaterally Skin no rash Psychiatric mood and affect appropriate Assessment and Plan: Jeannie was seen today for uri. Diagnoses and all orders for this visit: Suspected COVID-19 virus infection - Cancel: COVID-19 PCR Chronic obstructive pulmonary disease, unspecified COPD type Other orders - COVID-19 PCR - azithromycin (Zithromax) 250 mg Tablet; Day 1: Take 2 tablets daily, Day 2 - 5: Take one tablet daily Slight exacerbation of COPD Covid test sent Covid test sent and changed to rapid Await results prior to leaving [facility] campus as patient uses Public transportation There are no Patient Instructions on file for this visit. FOLLOWUP: No follow-ups on file. documented in this encounter Plan of Treatment Not on file documented as of this encounter Procedures Procedure Name Priority Date/Time Associated Diagnosis Comments RAPID COVID-19 PCR ([facility]/APD/[facility]) Routine 04/03/2020 11:19 AM EDT documented in this encounter Results * COVID-19 PCR (04/03/2020 11:19 AM EDT) SARS-CoV-2 RNA PCR Not Detected Not Detected [facility] Comment: This result should [...] using the Simplexa COVID-19 Direct Assay by [employer] as authorized by the FDA issued Emergency [...] Department of Pathology and Laboratory Medicine at [facility], certified under the Clinical Laboratory [...] webpage under Information for Healthcare Professionals (https://www.cdc.gov/coronavirus/2019-ncov/hcp/index.html). SARS-CoV-2 Source CONTENT DIRECTOR Swab RICH LOZADA [facility] Nasopharyngeal swab (specimen) Other / Unknown 04/03/2020 11:19 AM EDT 04/03/2020 12:42 PM EDT Comment:Symptoms->Fever / Re spiratory Symptoms Narrative Resulting Agency Comment Spec In Lab / APD Hoang Castellanos APRN MICROBIOLOGY - GENER AL ORDERABLES [facility] [place] [address] documented in this encounter Visit Diagnoses Diagnosis Suspected COVID-19 virus infection Chronic obstructive pulmonary disease, unspecified COPD type documented in this encounter Care Teams Artificial Snow Making Machine Operator Relationship Specialty Start Date End Date Hoang Castellanos APRN [address] [place] [address] PCP - General Family Medicine 03/12/20 documented as of this encounter
--- OUTSIDE RECORDS SUMMARY | 2024-02-22 00:52 | XMS_ITS | Encounter Summary ---
Author Organization [facility] Address [facility] [place] [address] Care Team Providers Care Selenium Plant Operator Name Role Phone Hoang Castellanos APRN Primary Care Provider Reason for Referral * Consultation (Routine) - Closed Specialty Diagnoses / Procedures Referred By Contac t Referred To Contact Cardiology Diagnoses Coronary artery disease involving [place] coronary artery of [place] heart without angina pectoris CAD - Coronary artery disease involving [place] coronary artery of [place] heart without angina pectoris *[facility] Hoang Castellanos APRN [address] [place] [address] Freddy Mejias MD [facility] [place] [address] Referral ID Status Reason Start Date Expiration Date V isits Requested Visits Authorized [id number] Closed Consult, Test & Treat 07/16/2020 07/16/2021 6 6 * Diagnostic Test (Routine) - Closed Specialty Diagnoses / Procedures Referred By Contac t Referred To Contact Radiology Diagnoses Dizziness Procedures MRI Brain wwo Contrast (Generic) Hoang Castellanos APRN [address] [place] [address] [facility] [address] [place] [address] Referral ID Status Reason Start Date Expiration Date V isits Requested Visits Authorized [id number] Closed Specialty Service Requested 07/14/2020 01/12/2022 1 1 Reason for Visit * Reason Comments Follow-up ER Visit Encounter Details Date Type Department Care Team (Latest Contact Info) Description 07/14/2020 3:30 PM EST TH Visit (TeleHealth) Primary Care at [address] [phone] Hoang Castellanos APRN [address] [facility] [place] [place] [address] Dizziness; Sprain of right ankle, unspecified ligament, subsequent encounter; Generalized weakness; Benign essential hypertension; Coronary artery disease involving [place] coronary artery of [place] heart without angina pectoris Social History Tobacco [...] Sign Reading Time Taken Comments Blood Pressure 150/80 07/14/2020 3:31 PM EST Pulse 58 07/14/2020 3:31 PM EST Temperature - - Respiratory Rate - - Oxygen Saturation 96% 07/14/2020 3:31 PM EST Inhaled Oxygen Concentration - - Weight 107 kg (236 lb) 07/14/2020 3:31 PM EST Height 162.6 cm (5' 4) 07/14/2020 3:31 PM EST Body Mass Index 40.51 07/14/2020 3:31 PM EST documented in this encounter Progress Notes * Hoang Castellanos APRN - 07/14/2020 3:30 PM EST [facility] Telehealth Encounter Nurse Call: Patient called to notify of telehealth visit in lieu of office/home visit due to public health emergency. For patients in facilities or with caregivers, these were also notified. BEST PHONE NUMBER: - Video visit Is this a cell phone number: yes Patient or family advised that telehealth visit will be conducted similar to office/home visit and may ultimately be billable. Patient or family agrees to visit: yes If yes, given time window for the telehealth visit. Chief complaint entered. Yes - Follow up from ER visit on 07/03/2020 Medications and allergies reconciled. Yes. Subjective: HPI: Jeannie Rico is a 60 y.o. female Due to public health emergency this visit was conducted as a telehealth encounter. Confirmed that patient consents to visit. Jeannie Rico is a 60 y.o. female who comes in today to follow up after a recent emergency room visit. Jeannie Rico was seen at [facility] emergency room on 07/03/2020 for Right ankle pain and dizziness. The records from this visit were reviewed. Jeannie Rico was diagnosed withSprain of right ankle.. Jeannie Rico was not given a prescription for no new medications. The ERrecommended follow up with Hoang, and physical therapy - AILEENA is coming to the house twice a week. Santos Alatorre is helping with the ankle pain, bearing weight on it Using a big walker most of the time Using a walking boot Swollen and bruised Pain is tolerable Since being seen at the ER, his/her symptoms are better. Patient states her ankle pain is better, dizziness can still hit at any time. Dizziness worse this past 4 weeks-comes/goes A wave of dizziness can occur at random Feels lightheaded like she might faint Has had approx 8-9 falls in the past 4 weeks Was referred to Neurology but has not seen them No [facility] Numbness/tingling in fingers of both hands Both legs with tremors since last fall-has occurred approx 3 times, resolves after 1 minute Known CAD s/p ALF x2 to LAD in 2012 Patient had episodic dizziness noted in Cardiology eval on 12/13/16-she was instructed to f/u with Dr. Mejias in 6 months and has not returned Patient advised to check vital signs prior to visit to report to provider if possible (for patientsin facility setting, nursing staff asked to obtain vitals in advance). VNA / PT They check her blood pressure twice a week. Today's reading was 150/80, pulse was 58, Spo2 96. BP was really high the first day P.T. came-but she has a lot of pain/anxiety ROS: Review of Systems Objective: VS: Exam Constitutional: General: she is not in acute distress. Neurological: Mental Status: she is alert and oriented to person, place, and time. Psychiatric: Mood: Normal. Judgment: Normal. Assessment and Plan: Jeannie was seen today for follow-up . Diagnoses and all orders for this visit: Dizziness - MRI Brain wwo Contrast (Generic); Future Sprain of right ankle, unspecified ligament, subsequent encounter Generalized weakness Benign essential hypertension Coronary artery disease involving [place] coronary artery of [place] heart without angina pectoris - Referral to Cardiology Obtain MRI brain d/t episodes of dizziness, lightheadedness, generalized weakness, being off balance, and falls. Right ankle sprain-continue P.T. HTN-monitor BP closely. CAD-referral back to Cardiology for routine f/u as she has not been seen since 11/2016 Follow-up: Return in about 4 weeks (around 08/11/2020) for In Person f/u dizziness. Total time spent in telehealth encounter: 30 minutes documented in this encounter Plan of Treatment Scheduled Referrals Name Type Priority Associated Diagnoses Order Schedule Referral to Cardiology Outpatient Referral Routine Coronary artery disease involving [place] coronary artery of [place] heart without angina pectoris Ordered: 07/16/2020 documented as of this encounter Results * MRI Brain wwo Contrast (Generic) (09/16/2020 1:27 PM EST) Anatomical Region Laterality Modality Head Magnetic Resonan ce Impressions 09/16/2020 1:32 PM EST No acute intracranial abnormality. No IAC mass or abnormal enhancement. Thank you for letting us participate in the care of this patient. For questions regarding this report, please contact the number below. ? Electronically signed by: Yannick Solis MD, [facility] ([phone]), at 09/16/2020 1:32 PM Narrative 09/16/2020 1:32 PM EST EXAMINATION: MRI [...] contact the number below. Electronically signed by: Yannick Solis MD, [facility]([phone]), at 09/16/2020 1:32 PM Hoang Castellanos APRN IMG MRI ORDERABLES documented in this encounter Visit Diagnoses Diagnosis Dizziness Dizziness and giddiness Sprain of right ankle, unspecified ligament, subsequent encounter Generalized weakness Other malaise and fatigue Benign essential hypertension Essential hypertension, benign Coronary artery disease involving [place] coronary artery of [place] heart without angina pectoris Dizziness Dizziness and giddiness documented in this encounter Care Teams Selenium Plant Operator Relationship Specialty Start Date End Date Hoang Castellanos APRN [address] [place] [address] PCP - General Family Medicine 03/12/20 documented as of this encounter
--- OUTSIDE RECORDS SUMMARY | 2024-02-22 00:52 | XMS_ITS | Encounter Summary ---
[place] [address] Care Team Providers Care Vb Net Developer Name Role Phone Hoang Castellanos APRN Primary Care Provider Encounter Details Date Type Department Care Team (Late st Contact Info) Description 07/09/2020 Telephone Primary Care at [facility] [address] [place] [phone] Isadora Hidalgo LPN Social History Tobacco Use [...] Telephone Encounter - Isadora Hidalgo LPN - 07/09/2020 9:06 AM EST [facility]NA call they want a verbal order for OT evaluation. Spoke with [facility] gave verbal order documented in this encounter Plan of Treatment Not on file documented as of this encounter Visit Diagnoses Not on filedocumented in this encounter Care Teams Vb Net Developer Relationship Specialty Start Date End Date Hoang Castellanos, HOBBER [address] [place] [place] [address] PCP - General Family Medicine 03/12/20 documented as of this encounter
--- OUTSIDE RECORDS SUMMARY | 2024-02-22 00:52 | XMS_ITS | Encounter Summary ---
Author Organization [facility] [place] [address] Care Team Providers Care Academic Support Coordinator Name Role Phone Hoang Castellanos APRN Primary Care Provider Encounter Details Date Type Department Care Team (Late st Contact Info) Description 03/12/2020 1:00 PM EDT Office Visit Physical Therapy at [address] [phone] Karl Spring, PT Low back pain, non-specific Social History Tobacco [...] as of this encounter Miscellaneous Notes * Initial Evaluation - Karl Spring, PT - 03/12/2020 1:00 PM EDT Images from the original note were not included. PHYSICAL THERAPY INITIAL EXAMINATION Date of Exam/First Treatment: 03/12/2020 Date of onset: chronic Referring Provider: Hoang Castellanos Medicare Certification period: 03/12/2020 - 2020 Diagnosis and pertinent co-morbidities: ICD-10-CM 1. Low back pain, non-specific M54.5 CURRENT HISTORY: Jeannie Rico is a 59 y.o. female referred to physical therapy for treatment of an acute on chronic episode of low back pain. She has a history of chronic low back pain but sustained a fall back on02/05 pulling up gibbons in her garden. She fell onto her right arm and sustained a distal radius fracture. She aggravated her back in the fall as well and had been experiencing sharp right- sided low back and intermittent episodes of right leg sciatica. She denies any numbness and tingling nor does she appreciate any weakness in the leg. She had an MRI which showed mild degenerative changes in thelumbar spine with no nerve root impingement. Her care has been managed through primary care and Orth opaedics over at [facility]. She states the back has gradually improved since her fall and at present has no longer been experiencing right lower extremity pain. The back pain has improved as well and feelslike she is back to her baseline. She would like to review some PT exercises that she can do independently at home. Past Medical History: Diagnosis Date ??? Depression ??? Diabetes mellitus ??? Hypertension ??? Obesity, S/P remote gastric bypass in 1995, prior VBG 05/09/2013 ??? Osteoporosis ??? Suicide attempt 08/02/2019 ??? Thyroid disease Imaging: (summary of most recent radiology report only, please see [facility] for full report and imaging history) MRI LUMBAR SPINE WO CONTRAST (GENERIC) - 02/19/2020 ?? CLINICAL HISTORY: Lumbar radiculopathy, > 6 wks ?? TECHNIQUE: MRI of the lumbar spine performed without intravenous contrast administration. ?? COMPARISON: MRI lumbar spine 03/13/2013 ?? FINDINGS: Hemangiomas throughout the lumbar spine with the largest being located in L1 and L5, similar to prior. Alignment is maintained. No spondylolisthesis. There is mild loss of intervertebral disc space signal throughout the lumbar spine. The conus is normal. Terminates at the level of the L1 vertebral body. ?? Probable bilateral renal cysts present. No abdominal aortic aneurysm. ?? T12-L1: Normal ?? L1-L2: Small disc bulge indents the thecal sac. No significant central canal stenosis. No neural foraminal narrowing. ?? L2-L3: Small disc bulge and mild bilateral facet arthropathy along with redundancy ligamentum flavum are present and indent thecal sac without significant central canal stenosis. No neural foraminal narrowing. ?? L3-L4: There is a new, small disc bulge at L3-L4 and this along with mild bilateral facet arthropathy and redundancy ligamentum flavum combined produce mild central canal narrowing. There is also mild narrowing of the caudal aspect of each neural foramen. Subarticular recess narrowing is also mild, bilaterally. ?? L4-L5: Small disc bulge and mild bilateral facet arthropathy along with redundancy ligamentum flavum are present and indent thecal sac without significant central canal stenosis. No neural foraminal narrowing. ?? L5-S1: There are small disc bulge with superimposed small central disc protrusion and moderate bilateral facet arthropathy. There is indentation of the thecal sac without significant central canal stenosis. No neural foraminal narrowing. ?? IMPRESSION Overall mild degenerative change in the lumbar spine as described level by level in the body of the report. No nerve root impingement at any level. New small disc bulge at L3-L4, though with no more than mild central canal narrowing. Current Functional Limitations: Walking, bending, lifting Prior level of Function: history of chronic neck and back pain, completed FRP program previously, Current Exercise/Hobbies: walking, gardening Pain: Location: Right low back and right lower extremity Intensity: best 2/10; worst 5/10 Nature: aching and shooting Duration: recurrent Paresthesias: denies any numbness and tingling in the right lower extremity RED FLAGS: denies: Previous history of cancer, Bowel/bladder incontinence, recurrent fever/chills, saddle paresthesias, unexplained weight loss of 10 lbs over 3 months, Cauda equina syndrome, fracture, tumor, unremitting night pain CLINICAL FINDINGS: Observation: Posture: Lumbar lordosis decreased, rounded shoulders and forward head posture Lateral Shift: absent Gait: Gait Pattern: Normal reciprocal non-antalgic gait Heel Walking: able Toe Walking: able Functional Movements: Sit-to Stand: able to complete without upper extremity support Balance: Single Leg Stance: (L) 15 sec, (R) 12 sec ACTIVE PHYSIOLOGICAL MOVEMENTS: Lumbar Spine Affected side: right % of Pain free Motion Reproduction of Concordant Sign flexion 75% Positive, right-sided tightness and LBP extension 100% Negative SB right 100% Negative SB left 100% Negative rotation right 100% Negative rotation left 100% Negative 1. * = Performed with Increased pain 2. NT = Not Tested LOWER QUARTER SCREEN Spinal Level Dermatome Myotome Grade L2 normal Hip flexion 5/5 L3 normal Knee extension 5/5 L4 normal Ankle dorsiflexion 5/5 L5 normal Great toe extension 5/5 S1 normal Ankle PF, ankle EV, hip extension 5/5 S2 normal Knee flexion 5/5 Reflexes Right Left Patella Normal Normal Achilles Normal Normal Affected side: right NEURAL MOBILITY TESTS OUTCOME SLR test (sensitive test) Negative Prone Knee Bending (sensitive test) Negative Slump test (sensitive test) Negative Palpation: Mild tenderness to palpation of the right lumbar paraspinals and QL. Mild right gluteal and piriformis tenderness Flexibility: Decreased at: hip flexors, gluteals Repeated Motion Testing: Repeated flexion in standing: decreased symptoms Repeated end range extension in standing: unchanged symptoms Centralization (+LR 6.7, -LR .12): no reproduction of lower extremity symptoms Special Tests: Affected side: right TEST NAME OUTCOME PURPOSE Prone Instability not performed Lumbar Instability Passive Lumbar Extension not performed Lumbar Instability ARGELIA's - HIP pathology FADIR - Hip impingment Scour Test - Hip Pathology EXERCISES: CLINICAL EVALUATION AND DIAGNOSIS: Jeannie Rico is a 59 y.o. female seen for a PT evaluation of an acute on chronic episode of low back pain. She sustained a fall in her garden back on February 05 where she fractured her distal rightradius and sustained an acute aggravation of her low back and sciatica. She states her symptoms have slowly been improving and her lower extremity pain has resolved. Her lower quarter neural screen is unremarkable today and her recent MRI is consistent with previous lumbar spine MRI's. At this point she feels she is returning to her baseline status with her low back. We reviewed a home exercise program today that she will complete independently but is welcome to return for additional PT should her symptoms worsen again. Clinical decision making of low complexity using standardized patient assessment instrument and measurable assessment of functional outcome. Clinical Presentation: Stable Evolving Unstable X GOALS: Therapy Goals (6 weeks) Patient will: 1. Be indep with home exercise program. 2. Report decreased pain of 2 points or greater on VAS for MCID 3. Be able to walk community distances with less than 2/10 pain 4. Be independent in ablity to self-manage symptoms. INITIAL TREATMENT INCLUDED: Examination and instruction in a home exercise program PLAN: Follow-up PT as needed Treatment plan: Manual Techniques, Soft Tissue Mobilization, Stretching, Joint Mobilization, Therapeutic Exercise, Body Mechanics, Posture and Home Exercise Program Total Treatment time: 45 min Total Timed Coded Treatment: 0 min The plan has been discussed with the patient and Jeannie Rico has agreed with the planned treatment. KARL SPRING, PT, DPT, OCS documented in this encounter Plan of Treatment Not on file documented as of this encounter Visit Diagnoses Diagnosis Low back pain, non-specific documented in this encounter Care Teams Academic Support Coordinator Relationship Specialty Start Date End Date Hoang Castellanos, BILINGUAL NANNY [address] [place] [address] PCP - General Family Medicine 03/12/20 documented as of this encounter
--- OUTSIDE RECORDS SUMMARY | 2024-02-22 00:52 | XMS_ITS | Encounter Summary ---
[place] [address] Care Team Providers Care Desilverizer Name Role Phone Hoang Castellanos APRN Primary Care Provider Encounter Details Date Type Department Care Team (Late st Contact Info) Description 04/08/2020 Telephone Orthopaedics at [facility] [address] [facility] [place] [phone] Irasema Chairez, RN Social History Tobacco Use Types Packs/Day [...] Miscellaneous Notes * Telephone Encounter - Irasema Lou, FABIANA - 04/08/2020 10:16 AM EDT Patient contacted clinic to see what the next steps would be regarding her ongoing care for an associated fracture with Dr. Hernandez now that she has obtained the xray yesterday. Patient is under the care of Dr. Hernandez for Right intra- articular distal radius fracture 02/04/20. After consulting with Dr. Hernandez, it was determined that patient would come in for placement into anexos splint for best continued healing. documented in this encounter Plan of Treatment Not on file documented as of this encounter Visit Diagnoses Not on filedocumented in this encounter Care Teams Desilverizer Relationship Specialty Start Date End Date Hoang Castellanos, SAM [address] [place] [address] PCP - General Family Medicine 03/12/20 documented as of this encounter
--- OUTSIDE RECORDS SUMMARY | 2024-02-22 00:52 | XMS_ITS | Encounter Summary ---
[place] [address] Care Team Providers Care Central Lab Technician Name Role Phone Hoang Castellanos APRN Primary Care Provider Encounter Details Date Type Department Care Team (Late st Contact Info) Description 03/12/2020 [place] [phone] Shakir Mark RN Social History Tobacco Use Types Packs/Day [...] encounter Miscellaneous Notes * Telephone Encounter - Shakir Mark, RN - 03/12/2020 6:59 AM EDT Spoke with Jeannie and she said there was a mix up and that she did not need to get tested for covid. documented in this encounter Plan of Treatment Not on file documented as of this encounter Visit Diagnoses Not on filedocumented in this encounter Care Teams Central Lab Technician Relationship Specialty Start Date End Date Hoang Castellanos APRN [address] [place] [address] PCP - General Family Medicine 03/12/20 documented as of this encounter
--- OUTSIDE RECORDS SUMMARY | 2024-02-22 00:52 | XMS_ITS | Encounter Summary ---
Author Organization [facility] [place] [address] Care Team Providers Care Online Publisher Name Role Phone Hoang Castellanos APRN Primary Care Provider [phone] Reason for Visit * Reason Onset Date Comments Medication Refill 04/15/2020 Encounter Details Date Type Department Care Team (Late st Contact Info) Description 04/15/2020 Refill Primary Care at [facility] [address] [place] [phone] Isadora Hidalgo LPN B12 deficiency Social History [...] Telephone Encounter - Isadora Hidalgo LPN - 04/15/2020 11:28 AM EDT Received a fax requesting refill of aspirin 81 g, metoprolol 25 mg,vitamin B12 and vitamin D3 Aspirin 81mcg 90, Last Prescription Fill Date:06/01/19 Number Dispensed and Refills: 90, 3 refills Last Related Office Visit: 03/04/20 Upcoming Appointment: Visit date not found No flowsheet data found. Lab Results Component Value Date HGB 13.9 01/01/2020 HCT 44.3 01/01/2020 CHLPL 114 12/27/2019 TRIG 102 12/27/2019 HDL 38 12/27/2019 LDLCHOL 56 12/27/2019 ALT 8 01/01/2020 AST 14 01/01/2020 NA 136 01/01/2020 K 4.7 01/01/2020 CL 97 (L) 01/01/2020 CREATININE 0.90 01/01/2020 TSH 1.53 01/01/2020 INR 1.0 04/16/2013 HA1C 6.0 (H) 01/01/2020 Metoprolol Last Prescription Fill Date: 06/01/20 Number Dispensed and Refills: 45, 3 refills Last Related Office Visit: 06/01/20 Upcoming Appointment: Visit date not found No flowsheet data found. Lab Results Component Value Date HGB 13.9 01/01/2020 HCT 44.3 01/01/2020 CHLPL 114 12/27/2019 TRIG 102 12/27/2019 HDL 38 12/27/2019 LDLCHOL 56 12/27/2019 ALT 8 01/01/2020 AST 14 01/01/2020 NA 136 01/01/2020 K 4.7 01/01/2020 CL 97 (L) 01/01/2020 CREATININE 0.90 01/01/2020 TSH 1.53 01/01/2020 INR 1.0 04/16/2013 HA1C 6.0 (H) 01/01/2020 Vitamin B12 Last Prescription Fill Date: 06/01/19 Number Dispensed and Refills: 12, 3 refills Last Related Office Visit: 03/04/20 Upcoming Appointment: Visit date not found No flowsheet data found. Lab Results Component Value Date HGB 13.9 01/01/2020 HCT 44.3 01/01/2020 CHLPL 114 12/27/2019 TRIG 102 12/27/2019 HDL 38 12/27/2019 LDLCHOL 56 12/27/2019 ALT 8 01/01/2020 AST 14 01/01/2020 NA 136 01/01/2020 K 4.7 01/01/2020 CL 97 (L) 01/01/2020 CREATININE 0.90 01/01/2020 TSH 1.53 01/01/2020 INR 1.0 04/16/2013 HA1C 6.0 (H) 01/01/2020 Vitamin D3 Last Prescription Fill Date: Number Dispensed and Refills: Last Related Office Visit: Upcoming Appointment: Visit date not found No flowsheet data found. Lab Results Component Value Date HGB 13.9 01/01/2020 HCT 44.3 01/01/2020 CHLPL 114 12/27/2019 TRIG 102 12/27/2019 HDL 38 12/27/2019 LDLCHOL 56 12/27/2019 ALT 8 01/01/2020 AST 14 01/01/2020 NA 136 01/01/2020 K 4.7 01/01/2020 CL 97 (L) 01/01/2020 CREATININE 0.90 01/01/2020 TSH 1.53 01/01/2020 INR 1.0 04/16/2013 HA1C 6.0 (H) 01/01/2020 documented in this encounter Plan of Treatment Not on file documented as of this encounter Visit Diagnoses Diagnosis B12 deficiency Other B-complex deficiencies documented in this encounter Care Teams Online Publisher Relationship Specialty Start Date End Date Hoang Castellanos, RESPIRATORY THERAPY AIDE [address] [place] [address] PCP - General Family Medicine 03/12/20 documented as of this encounter
--- OUTSIDE RECORDS SUMMARY | 2024-02-22 00:52 | XMS_ITS | Encounter Summary ---
Author Organization [facility] [place] [address] Care Team Providers Care Credit Or Loans Officer Name Role Phone Hoang Castellanos APRN Primary Care Provider Encounter Details Date Type Department Care Team (Late st Contact Info) Description 07/14/2020 [place] [address] Chidi Dow MD [facility] [address] [place] [address] Social History Tobacco Use Types Packs/Day Years [...] on filedocumented in this encounter Care Teams Credit Or Loans Officer Relationship Specialty Start Date End Date Hoang Castellanos APRN [address] [place] [address] PCP - General Family Medicine 03/12/20 documented as of this encounter
--- OUTSIDE RECORDS SUMMARY | 2024-02-22 00:52 | XMS_ITS | Encounter Summary ---
Author Organization [place] [address] Care Team Providers Care Rn Office Name Role Phone Hoang Castellanos APRN Primary Care Provider Encounter Details Date Type Department Care Team (Late st Contact Info) Description 04/03/2020 - 04/03/2020 1:17 PM EDT Emergency Emergency Services at [address] [phone] Discharge Disposition: Home Social History Tobacco Use [...] by mouth 2 times daily. 01/27/2020 04/14/2023 azithromycin (Zithromax) 250 mg Tablet Day 1: Take 2 tablets daily, Day 2 - 5: Take one tablet daily 6 tablet 04/03/2020 07/16/2020 alendronate (Fosamax) 70 mg TabletIndications:Age- related osteoporosis without current pathological fracture Take 1 tablet by mouth every 7 days. Take in AM with full glass of water, on an empty stomach. Do not lie down for 30 min. 52 tablet 04/01/2020 03/23/2021 meloxicam (MOBIC) 15 mg Tablet Take 1 tablet by mouth daily. 03/23/2020 08/12/2020 prazosin (Minipress) 2 mg Capsule Take 1 capsule by mouth daily. 03/23/2020 10/31/2020 isosorbide mononitrate CR (Imdur) 30 mg Tablet Sustained Release 24 hr Take 1 tablet by mouth daily. 90 tablet 3 03/21/2020 02/17/2021 ibuprofen (Advil;Motrin) 800 mg TabletIndications:Programming Specialist randell right-sided low back pain without sciatica Take 1 tablet by mouth every 8 hours as needed for Pain. 90 tablet 5 03/04/2020 11/04/2021 traZODone (Desyrel) 100 mg Tablet Take 1 tablet by mouth daily. 02/26/2020 10/01/2020 lisinopriL (Prinivil;Zestril) 10 mg TabletIndications:Augie gn essential hypertension Take 1 tablet by mouth daily. 90 tablet 3 02/05/2020 07/07/2020 Acidophilus Capsule TAKE TWO (2) CAPSULES BY [...] mouth daily. 90 tablet 3 08/20/2019 02/03/2021 levothyroxine (Synthroid) 50 mcg Tablet Take 1 tablet by mouth daily. Pt needs to come in for TSH. 90 tablet 3 08/20/2019 07/16/2020 lamoTRIgine (LaMICtal) 200 mg Tablet Take 1 tablet by mouth daily. 90 tablet 3 08/20/2019 07/16/2020 clopidogrel (Plavix) 75 mg Tablet Take 1 tablet by mouth daily. 90 tablet 3 08/20/2019 07/16/2020 tiotropium bromide (SPIRIVA RESPIMAT) 2.5 mcg/actuation MistIndications:Asthma with acute exacerbation, unspecified asthma severity, unspecified whether persistent Inhale 2 puffs into the lungs nightly. 12 g 3 06/04/2019 03/23/2021 metoprolol succinate (TOPROL-XL) 25 mg Tablet Sustained Release 24 hr Take 0.5 tablets by mouth daily. 45 tablet 3 06/01/2019 04/15/2020 cyanocobalamin, vitamin B-12, (VITAMIN B-12) 1,000 mcg TabletIndications:B12 deficiency Take 1 tablet by mouth once a week. 12 tablet 3 06/01/2019 04/15/2020 aspirin 81 mg Tablet, Delayed Release (E.C.) Take 1 tablet by mouth daily. 90 tablet 3 06/01/2019 04/15/2020 fluticasone propion-salmeterol (ADVAIR DISKUS) 500-50 mcg/dose Disk with Device Inhale 1 puff into the lungs 2 times daily. 180 each 3 06/01/2019 05/09/2020 albuterol (PROAIR HFA) 90 mcg/actuation HFA Aerosol [...] documented as of this encounter Care Teams Rn Office Relationship Specialty Start Date End Date Hoang Castellanos, SAM [address] [place] [address] PCP - General Family Medicine 03/12/20 documented as of this encounter
--- OUTSIDE RECORDS SUMMARY | 2024-02-22 00:52 | XMS_ITS | Encounter Summary ---
Author Organization [facility] [place] [address] Care Team Providers Care Instrument Panel Assembler Name Role Phone Hoang Castellanos APRN Primary Care Provider Encounter Details Date Type Department Care Team (Late st Contact Info) Description 07/03/2020 12:25 PM EST Ancillary Procedure Radiology Xray at [facility] [place] [address] Social History Tobacco Use Types [...] Comments XR ANKLE MIN 3 VIEWS RIGHT STAT 07/03/2020 12:41 PM EST documented in this encounter Results * XR Ankle Min 3 views Right (Generic) (07/03/2020 12:41 PM EST) Anatomical Region Laterality Modality Ankle Right Digital Radiogra phy Impressions 07/03/2020 1:02 PM EST No acute fracture. Thank you for letting us participate in the care of this patient. For questions regarding this report, please contact the number below. ? Narrative 07/03/2020 1:02 PM EST EXAMINATION: XR ANKLE MIN 3 VIEWS RIGHT (GENERIC) CLINICAL HISTORY: trauma and pain eval for fracture TECHNIQUE: 3 views RIGHT ankle COMPARISON: Ankle radiographs dated 05/19/2008 FINDINGS: No acute fracture or dislocation. There is no ankle joint effusion. Ankle mortise is intact. Bimalleolar soft tissue swelling. Procedure Note Monty Sams DO - 07/03/2020 EXAMINATION: XR ANKLE MIN 3 VIEWS RIGHT (GENERIC) CLINICAL HISTORY: trauma and pain eval for fracture TECHNIQUE: 3 views RIGHT ankle COMPARISON: Ankle radiographs dated 05/19/2008 FINDINGS: No acute fracture or dislocation. There is no ankle joint effusion.Ankle mortise is intact. Bimalleolar soft tissue swelling. IMPRESSION No acute fracture. Thank you for letting us participate in the care of this patient. Forquestions regarding this report, please contact the number below. Nilam Blair MD IMG DX ORDERABLES documented in this encounter Visit Diagnoses Not on filedocumented in this encounter Care Teams Instrument Panel Assembler Relationship Specialty Start Date End Date Hoang Castellanos APRN [address] [place] [address] PCP - General Family Medicine 03/12/20 documented as of this encounter
--- OUTSIDE RECORDS SUMMARY | 2024-02-22 00:52 | XMS_ITS | Encounter Summary ---
Author Organization [facility] [place] [address] Care Team Providers Care Spray Maker Name Role Phone Hoang Castellanos APRN Primary Care Provider Encounter Details Date Type Department Care Team (Late st Contact Info) Description 04/03/2020 Telephone Primary Care at [facility] [place] [phone] Jeannie Luciano, RN Social History Tobacco Use [...] Telephone Encounter - Jeannie Luciano RN - 04/03/2020 9:41 AM EDT Pt arrived at [facility] and screened positive for COVID like symptoms; runny nose, fatigue, cough. High Threat Infection Intake Questions Best Contact number: PATIENT TRIAGE: COVID-19 Screening and Testing Protocol According to The Center for Disease Control and Prevention (CDC), the following symptoms may indicate COVID-19 if they are new, and not explained by another health condition: COVID-19 Symptoms (check all that apply). Any one of the symptoms below would qualify the patient for testing. [] Fever (subjective or documented fever) [] Chills [x] Cough [] Shortness of breath or difficulty breathing [x] Fatigue [] Muscle or body aches [] Headache [] New loss of taste or smell [x] Sore throat [x] Congestion or runny nose [] Nausea or vomiting [x] Diarrhea 2. ASYMPTOMATIC PATIENTS (no signs or symptoms suspicious for COVID-19)- Check all that apply. [] Patients being admitted to facilities that require testing prior to admission (ideally done 24-48 hours prior to ) [] Patients being admitted for stem cell or solid organ transplant (ideally done 24-48 hours prior to admission) [] We are performing community asymptomatic screening for: family members or close contacts of confirmed COVID-19 cases; members of or healthcare workers at group homes/shelters, long term facilities or long lines operator care facilities (LTCFs); and all first responders. [] For patients with an [facility] primary care provider (PCP), we perform asymptomatic screening requiredfor school, work, or travel. 3. PATIENT REQUEST [] Patient does not meet above criteria but is requesting testing. All patients requesting testing will need to be referred below to [facility] prior to scheduling. PLAN [] Patient scheduled for an appointment with provider [] OV []TH [] Patient declined provider appointment [] Patient referred to [facility] for testing (send signed note to [facility]) [] Triage note sent to provider for input Patient instructions: documented in this encounter Plan of Treatment Not on file documented as of this encounter Visit Diagnoses Diagnosis Suspected COVID-19 virus infection documented in this encounter Care Teams Spray Maker Relationship Specialty Start Date End Date Hoang Castellanos APRN [address] [place] [address] PCP - General Family Medicine 03/12/20 documented as of this encounter
--- OUTSIDE RECORDS SUMMARY | 2024-02-22 00:52 | XMS_ITS | Encounter Summary ---
[place] [address] Care Team Providers Care Neurology Manager Name Role Phone Hoang Castellanos APRN Primary Care Provider [phone] Encounter Details Date Type Department Care Team (Late st Contact Info) Description 07/07/2020 Telephone Primary Care at [facility] [address] [place] [phone] Isadora Hidalgo LPN Social History Tobacco Use [...] Encounter - Isadora Hidalgo LPN - 07/07/2020 3:27 PM EST Jeannie called pharmacy to let them know you increase the lisinopril she gets her meds put together by the pharmacy so they need a new prescription. documented in this encounter Plan of Treatment Not on file documented as of this encounter Visit Diagnoses Not on filedocumented in this encounter Care Teams Neurology Manager Relationship Specialty Start Date End Date Hoang Castellanos, DATA SCIENTIST [address] [place] [address] PCP - General Family Medicine 03/12/20 documented as of this encounter
--- OUTSIDE RECORDS SUMMARY | 2024-02-22 00:52 | XMS_ITS | Encounter Summary ---
[place] [address] Care Team Providers Care Medical Lab Scientist Name Role Phone Hoang Castellanos APRN Primary Care Provider [phone] Encounter Details Date Type Department Care Team (Latest Contact Info) Description 04/07/2020 8:00 AM EDT Ancillary Procedure Radiology XRay at the [facility] at [facility] [address] [facility] [place] [address] Talita Hernandez MD [address] [place] [address] Closed fracture of distal end of right [...] Name Priority Date/Time Associated Diagnosis Comments XR WRIST 2 VIEWS RIGHT Routine 04/07/2020 8:14 AM EDT Closed fracture of distal end of right radius, unspecified fracture morphology, sequela documented in this encounter Results * XR Wrist 2 [...] signed by: Bandar Tejeda MD, [facility] ([phone]), at 04/07/2020 8:21 AM Narrative 04/07/2020 8:21 [...] sequela documented in this encounter Care Teams Medical Lab Scientist Relationship Specialty Start Date End Date Hoang Castellanos, COO [address] [place] [address] PCP - General Family Medicine 03/12/20 documented as of this encounter
--- OUTSIDE RECORDS SUMMARY | 2024-02-22 00:52 | XMS_ITS | Encounter Summary ---
[place] [address] Care Team Providers Care Campground Hand Name Role Phone Hoang Castellanos APRN Primary Care Provider Encounter Details Date Type Department Care Team (Latest Contact Info) Description 05/01/2020 11:15 AM EDT Ancillary Procedure Radiology XRay at the [facility] at [facility] [address] [facility] [place] [address] Talita Hernandez MD [address] [facility] [address] OR[place]OPAED[place] [address] Closed fracture of distal end of right [...] Priority Date/Time Associated Diagnosis Comments XR WRIST 3 VIEWS RIGHT Routine 05/01/2020 10:52 AM EDT Closed fracture of distal end of right radius, unspecified fracture morphology, sequela documented in this encounter Results * XR Wrist 3 [...] ? Electronically signed by: Odell Monsalve MD, [facility] ([phone]), at 05/01/2020 11:13 AM Narrative 05/01/2020 11:13 [...] on the AP radiograph. Procedure Note Odell Monslave MD - 05/01/2020 EXAMINATION: XR WRIST 3 [...] the resident's interpretationand agree with the findings, Oedll Monsalve MD at 05/01/2020 11:13 AM Thank you for letting us participate in the care of this patient. Forquestions regarding this report, please contact the number below. Talita Hernandez MD IMG DX ORDERABLES documented in this encounter Visit Diagnoses Diagnosis Closed fracture of distal end of right radius, unspecified fracture morphology, sequela documented in this encounter Care Teams Campground Hand Relationship Specialty Start Date End Date Hoang Castellanos, WASTE SPECIALIST [address] [place] [address] PCP - General Family Medicine 03/12/20 documented as of this encounter
--- OUTSIDE RECORDS SUMMARY | 2024-02-22 00:52 | XMS_ITS | Encounter Summary ---
[place] [address] Care Team Providers Care Tyre Retreader Name Role Phone Hoang Castellanos APRN Primary Care Provider Encounter Details Date Type Department Care Team (Late st Contact Info) Description 07/16/2020 Telephone Primary Care at [facility] [address] [facility] [place] [phone] Isadora Hidalgo LPN Social History Tobacco Use [...] Encounter - Isadora Hidalgo LPN - 07/16/2020 2:41 PM EST Spoke with patient she already has appointment with cardiology and MRI * Telephone Encounter - Isadora Hidalgo LPN - 07/16/2020 2:41 PM EST ----- Message from Hoang Castellanos APRN sent at 07/16/2020 12:54 PM EST ----- Please inform patient that she is also due for Cardiology follow up-I have done the referral for her to be scheduled since her last OV was 11/2016 she is much overdue. documented in this encounter Plan of Treatment Not on file documented as of this encounter Visit Diagnoses Not on filedocumented in this encounter Care Teams Tyre Retreader Relationship Specialty Start Date End Date Hoang Castellanos APRN [address] [place] [address] PCP - General Family Medicine 03/12/20 documented as of this encounter
--- OUTSIDE RECORDS SUMMARY | 2024-02-22 00:52 | XMS_ITS | Encounter Summary ---
[place] [address] Care Team Providers Care Senior Software Project Manager Name Role Phone Hoang Castellanos APRN Primary Care Provider Reason for Visit * Reason Onset Date Comments Appointment 05/07/2020 Encounter Details Date Type Department Care Team (Late st Contact Info) Description 05/07/2020 [place] [phone] Caridad Moon Appointment Social History Tobacco Use Types Packs/Day [...] Miscellaneous Notes * Telephone Encounter - Meena Lyn - 05/08/2020 10:54 AM EDT Closing encounter. See referral communications. Patient requesting a call back in one month. * Telephone Encounter - Caridad Cuadra - 05/07/2020 9:10 AM EDT Call Center / [facility] Message - General Issue Call Provider patient sees in Clinic: none, new patient Caller and relationship (if other than patient-full name): self Call back number: [phone] Ok to leave a message: yes Reason for call: Patient is calling to reschedule the new patient appointment with Dr Michael Rosas.Patient is requesting a call back to see if this appointment can be a TOV. Please call patient to discuss further. Disposition of Call (choose one and remove others): ??? Routine message sent to [facility]: yes documented in this encounter Plan of Treatment Not on file documented as of this encounter Visit Diagnoses Not on filedocumented in this encounter Care Teams Senior Software Project Manager Relationship Specialty Start Date End Date Hoang Castellanos, GAS GENERATOR OPERATOR [address] [place] [address] PCP - General Family Medicine 03/12/20 documented as of this encounter
--- OUTSIDE RECORDS SUMMARY | 2024-02-22 00:52 | XMS_ITS | Encounter Summary ---
[place] [address] Care Team Providers Care Senior Ux Designer Name Role Phone Hoang Castellanos APRN Primary Care Provider Reason for Visit * Reason Onset Date Comments Medication Refill 04/01/2020 Encounter Details Date Type Department Care Team (Late st Contact Info) Description 04/01/2020 Refill Primary Care at [facility] [address] [place] [phone] Isadora Hidalgo LPN Age-related osteoporosis without current pathological fracture Social [...] Telephone Encounter - Isadora Hidalgo LPN - 04/01/2020 1:54 PM EDT Received a fax from [facility] requesting an Rx for Fosamax, Last Prescription Fill Date: 04/11/19 Number Dispensed and Refills: 52 tab. Last Related Office Visit: 03/04/20 Upcoming Appointment: [...] of this encounter Visit Diagnoses Diagnosis Age-related osteoporosis without current pathological fracture Senile osteoporosis documented in this encounter Care Teams Senior Ux Designer Relationship Specialty Start Date End Date Hoang Castellanos, MORNING SHOW PRODUCER [address] [place] [address] PCP - General Family Medicine 03/12/20 documented as of this encounter
--- OUTSIDE RECORDS SUMMARY | 2024-02-22 00:52 | XMS_ITS | Encounter Summary ---
Author Organization [facility]ly [facility] [place] [address] Care Team Providers Care Online Trader Name Role Phone Hoang Castellanos APRN Primary Care Provider Encounter Details Date Type Department Care Team (Late st Contact Info) Description 03/08/2020 Telephone Primary Care at [facility] [address] [facility] [place] [phone] Hoang Castellanos APRN [address] [place] [address] Social History Tobacco Use Types Packs/Day Years [...] Telephone Encounter - Hoang Castellanos APRN - 03/08/2020 8:23 AM EDT Another call from pt. She needs covid testing authorized for the covid hotline. I have called them and given the authorization. We are also able to route a message to the [id number] pool to coordinate and authorize testing. * Telephone Encounter - Hoang Castellanos APRN - 03/08/2020 8:07 AM EDT weight caller note: Pt with hx of chronic bronchitis, smoker. Reports worsening cough, SOB with activity. Unsure if it is really new. Often has sx this time of year. Reports friend who is at her house has been exposed to someone with covid 19 although they were not in contact >15 min face to face. Advised that she may call covid hotline for weekend testing, appt at Resp clinic on Tuesday if not feeling better. documented in this encounter Plan of Treatment Not on file documented as of this encounter Visit Diagnoses Not on filedocumented in this encounter Care Teams Online Trader Relationship Specialty Start Date End Date Hoang Castellanos APRN [address] [place] [address] PCP - General Family Medicine 12/07/19 03/11/20 documented as of this encounter
--- OUTSIDE RECORDS SUMMARY | 2024-02-22 00:52 | XMS_ITS | Encounter Summary ---
[place] [address] Care Team Providers Care Joiner Helper Name Role Phone Hoang Castellanos APRN Primary Care Provider Reason for Visit * Reason Onset Date Comments Fall 07/03/2020 Ankle Injury 07/03/2020 Encounter Details Date Type Department Care Team (Late st Contact Info) Description 07/03/2020 Telephone Primary Care at [facility] [place] [phone] Minerva Calderón RN Fall; Ankle Injury Social History Tobacco Use Types Packs/Day Years [...] Telephone Encounter - Minerva Calderón RN - 07/03/2020 10:03 AM EST Patient's RYAN called into triage to report Jeannie fell at RYAN home in [place] last night, injured ankle, unable to bear weight. They would like to avoid calling 911 but need ambulance transport to get Jeannie to ED. They called her [facility] case monitor who advised to call PCP office. Advised may try to reach [facility] directly, if unable, call 911 for transport to ED. RYAN verbalized understanding and agreement. documented in this encounter Plan of Treatment Not on file documented as of this encounter Visit Diagnoses Not on filedocumented in this encounter Care Teams Joiner Helper Relationship Specialty Start Date End Date Hoang Castellanos, DESIGN PAINTER [address] [place] [address] PCP - General Family Medicine 03/12/20 documented as of this encounter
--- OUTSIDE RECORDS SUMMARY | 2024-02-22 00:52 | XMS_ITS | Encounter Summary ---
Author Organization [facility] [place] [address] Care Team Providers Care Cattle Manager Name Role Phone Hoang Castellanos APRN Primary Care Provider Reason for Visit * Reason Onset Date Comments Medication Refill 03/12/2020 Encounter Details Date Type Department Care Team (Late st Contact Info) Description 03/12/2020 Refill Primary Care at [facility] [address] [facility] [place] [phone] Isadora Hidalgo LPN Dizziness; Chronic right-sided low back pain without sciatica Social History Tobacco Use Types Packs/Day Years [...] Telephone Encounter - Isadora Hidalgo LPN - 03/12/2020 9:58 AM EDT Jeannie serrano asking to send the Rx for walker to [facility] ortho fax # [phone], this way patient doesn't have to pay out of pocket. Rx printed and faxed to [facility] ortho documented in this encounter Plan of Treatment Not on file documented as of this encounter Visit Diagnoses Diagnosis Dizziness Dizziness and giddiness Chronic right-sided low back pain without sciatica documented in this encounter Care Teams Cattle Manager Relationship Specialty Start Date End Date Hoang Castellanos APRN [address] [place] [address] PCP - General Family Medicine 03/12/20 documented as of this encounter
--- OUTSIDE RECORDS SUMMARY | 2024-02-22 00:52 | XMS_ITS | Encounter Summary ---
Author Organization [facility] Address [facility] [place] [address] Care Team Providers Care Sewer Hand Name Role Phone Hoang Castellanos APRN Primary Care Provider [phone] Reason for Visit * Reason Comments Right Ankle Pain Encounter Details Date Type Department Care Team (Late st Contact Info) Description 07/03/2020 11:32 AM EST - 07/03/2020 6:11 PM EST Emergency Emergency Services at [facility] [address] [facility] [place] [id number] Nilam Blair MD [facility] [place] [address] Sprain of right ankle, unspecified ligament, initial encounter Discharge Disposition: Home Social History Tobacco Use Types Packs/Day Years Used Date Smoking Tobacco: Every Day Cigarettes 0.5 45 Smokeless Tobacco: Never Tobacco Cessation:Ready to Q uit: No; Counseling Given: Yes Alcohol Use Standard Drinks/Week Comments No 0 (1 standard drink = 0.6 oz pur e alcohol) not drank in 24 years Sex and Gender Information Value Date Recorded Sex Assigned at Not on file Gender Identity Not on file Sexual Orientation Not on file documented as of this encounter Last Filed Vital Signs Vital Sign Reading Time Taken Comments Blood Pressure 139/65 07/03/2020 4:45 PM EST Pulse 61 07/03/2020 4:45 PM EST Temperature 36.9 ??C (98.4 ??F) 07/03/2020 4:45 PM ES T Respiratory Rate 20 07/03/2020 4:45 PM EST Oxygen Saturation 97% 07/03/2020 4:45 PM EST Inhaled Oxygen Concentration - - Weight 107 kg (236 lb) 07/03/2020 11:37 AM EST Height 162.6 cm (5' 4) 07/03/2020 11:37 AM EST Body Mass Index 40.51 07/03/2020 11:37 AM EST documented in this encounter Discharge Instructions * Discharge Instructions* Nilam Blair MD - 07/03/2020 4:25 PM EST You were evaluated in the ER after a fall with right ankle injury. Xray showed no evidence of fracture. Your symptoms are consistent with a severe sprain. Use the orthopedic boot to stabilize the ankle over the next 1 to 2 weeks. Elevate to decrease pain. Use your wheelchair if weightbearing is toopainful. Case management is arranging to have home PT visit you at home to help you with physical therapy. Take Tylenol for pain. You can try applying ice locally to the painful area every few hours for the next 2 days. Turn to the ER if you have severe/uncontrolled pain, severe weakness, or any worrisome symptoms. Call your doctor for follow-up for reevaluation. You may require referral to orthopedics if symptoms persist. * Attachments The following attachments cannot be sent through Care Everywhere. * Ankle Sprain (Nepali) documented in this encounter Medications at Time [...] by mouth 2 times daily. 01/27/2020 04/14/2023 nitroGLYcerin (Nitrostat) 0.4 mg Tablet, Sublingual Place [...] 1 tablet by mouth daily. 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 10/01/2020 documented as of this encounter ED Notes * Nilam Blair MD - 07/03/2020 6:11 PM EST Chief Complaint Patient presents with ??? Right Ankle Pain HPI This is a 60-year-old female with a history of chronic dizziness, diabetes type 2, COPD, hypertension, hyperlipidemia, borderline personality disorder, GERD, CAD, who presents after she tripped whilegetting up from a couch last night and twisted her right ankle. She states that she had fallen a couple of hours before that and landed on her abdomen, but denies head strike. She reports mild right-s ided rib pain due to that fall, but no significant pain with breathing. No head or neck injury. Fewhours later she had a second fall. She states that she often gets dizziness with standing up and her doctor has referred her to neurology for work-up of this. Dizziness was not worrisome to her today, but she presents worried about a possible ankle fracture. She has not been able to weight-bear dueto pain. No back pain. No hip or knee pain. No anterior chest pain or shortness of breath. Denies urinary symptoms. No fever/chills. Allergies Allergen Reactions ??? Morphine Shortness Of Breath ??? Sumatriptan Hives ??? Oxycodone Other (See Comments) drunk feeling, dizzy ??? Oxycodone-Acetaminophen Other (See Comments) dizziness, feels drunk ??? Chantix [Varenicline] psychotic ??? Imitrex [Sumatriptan Succinate] Hives ??? Prednisone Other reaction(s): aggitation Social History Socioeconomic History ??? Marital status: Spouse name: Not on file ??? Number of children: Not on file ??? Years of education: Not on file ??? Highest education level: Not on file Occupational History ??? Not on file Social Needs ??? Financial resource strain: Not on file ??? Food insecurity Worry: Not on file Inability: Not on file ??? Transportation needs Medical: Not on file Non-medical: Not on file Tobacco Use ??? Smoking status: Current Every Day Smoker Packs/day: 0.50 Years: 45.00 Pack years: 22.50 Types: Cigarettes ??? Smokeless tobacco: Never Used Substance and Sexual Activity ??? Alcohol use: No Comment: not drank in 24 years ??? Drug use: Yes Types: Marijuana Comment: 3 times per day, medical ??? Sexual activity: Not on file Lifestyle ??? Physical activity Days per week: Not on file Minutes per session: Not on file ??? Stress: Not on file Relationships ??? Social connections Talks on phone: Not on file Gets together: Not on file Attends taoism service: Not on file Active member of club or organization: Not on file Attends meetings of clubs or organizations: Not on file Relationship status: Not on file ??? Intimate partner violence Fear of current or ex partner: Not on file Emotionally abused: Not on file Physically abused: Not on file Forced sexual activity: Not on file Other Topics Concern ??? Do You live alone? No ??? Tobacco in Home Not Asked Social History Narrative ??? Not on file Family History Problem Relation Age of Onset [...] ??? Other Sister 43 Breast Neoplasm, Benign Past Medical History: Diagnosis Date ??? Depression ??? Diabetes mellitus ??? Hypertension ??? Obesity, S/P remote gastric bypass in 1995, prior VBG 05/09/2013 ??? Osteoporosis ??? Suicide attempt 08/02/2019 ??? Thyroid disease Past Surgical History: Procedure Laterality Date ??? CHOLECYSTECTOMY, OPEN 1991 ??? CREATED BY INTERFACE a carotid bypass Procedure Date: Unknown ??? DENTAL SURGERY 1998 complete dental extractions ??? GASTRIC BYPASS SURGERY 05/05/2000 open, non-divided. Dr Trejo ??? HYSTERECTOMY, TOTAL ABDOMINAL 1985 ??? LIPECTOMY 2001 ??? PRO UPPER GI ENDOSCOPY, BIOPSY N/A 12/03/2015 EGD WITH BIOPSY performed by Ken Sanders MD at [facility] ENDOSCOPY ??? PRO UPPER GI ENDOSCOPY, BIOPSY N/A 09/19/2018 UPPER GASTROINTESTINAL ENDOSCOPY,WITH BIOPSY SINGLE OR MULTIPLE (WRVU 2.49) performed by Tyron Mercado MD at [facility] ENDOSCOPY ??? TONSILLECTOMY ??? UPPER GI ENDOSCOPY, EXAM 12/04/2010 UPPER GI ENDOSCOPY performed by DEE WRIGHT at [facility] ENDOSCOPY Review of Systems All other systems reviewed and are negative. Physical Exam Constitutional: Appearance: Normal appearance. She is obese. HENT: Head: Normocephalic. Nose: Nose normal. Mouth/Throat: Mouth: Mucous membranes are moist. Eyes: General: No scleral icterus. Conjunctiva/sclera: Conjunctivae normal. Neck: Musculoskeletal: Normal range of motion and neck supple. No neck rigidity or muscular tenderness. Cardiovascular: Rate and Rhythm: Normal rate and regular rhythm. Heart sounds: No murmur. Pulmonary: Effort: Pulmonary effort is normal. No respiratory distress. Breath sounds: Normal breath sounds. Chest: Chest wall: Tenderness (Mild right-sided rib tenderness, no crepitus) present. Abdominal: General: Bowel sounds are normal. Palpations: Abdomen is soft. Tenderness: There is abdominal tenderness. There is rebound. There is no guarding. Musculoskeletal: Comments: Full range of motion of bilateral upper extremities at the shoulders/elbows/wrists. FROM of bilateral hips and knees. RLE: +tenderness at right lateral malleolus. Skin: General: Skin is warm and dry. Capillary Refill: Capillary refill takes less than 2 seconds. Findings: No rash. Neurological: General: No focal deficit present. Mental Status: She is alert and oriented to person, place, and time. Sensory: No sensory deficit. Psychiatric: Mood and Affect: Mood normal. Thought Content: Thought content normal. Procedures MDM Number of Diagnoses or Management Options Sprain of right ankle, unspecified ligament, initial encounter: Diagnosis management comments: 60-year-old female with history of chronic dizziness, presents aftermechanical fall last night where she tripped over the leg of the a recliner couch and twisted her ankle. She had had an fall earlier in the evening onto her abdomen, causing mild right rib pain. No head or neck injury. On exam she has focal tenderness at the right lateral ankle. No head or neck tenderness, no back tenderness. She has a normal cardiopulmonary exam, benign abdomen. The patient states the orthostatic dizziness is ongoing for her and her doctor is aware of this and is arranging neuro follow-up. There are no new neurologic symptoms. X-ray of chest shows no rib fracture, x-ray of right ankle shows no ankle fracture. Her symptoms are consistent with ankle sprain. She was placed anjali orthopedic boot for ankle stability/splinting. We obtained PT and case management consults to evaluate her ability to ambulate safely with assistive device, and case management has arranged for home PT visits. Feels safe to be discharged home with her family. Return precautions given. Follow-up with PCP/Ortho as needed. 1. Sprain of right ankle, unspecified ligament, initial encounter Nilam Blair MD 07/03/20 [id number] * Evonne Evangelista RN - 07/03/2020 4:50 PM EST Patient unable to arrange for ride. [employer] contacted for transportation. * Evonne Evangelista RN - 07/03/2020 3:31 PM EST Lunch ordered for patient. * Evonne Evangelista RN - 07/03/2020 2:04 PM EST PT evaluating patient. Patient ambulated with walker. Case management contacted for Visiting Nurse assistance. documented in this encounter Miscellaneous Notes * Care Management - Melania Almodovar - 07/03/2020 6:11 PM EST The VNA referral was faxed to the patient's preferred agency, [facility] ([phone]). * Care Management - Lele Davenport - 07/03/2020 4:27 PM EST Met with pt at RN request to discuss VNA services for home PT and review any other needs. Pt is agreeable to VNA services and after reviewing options requests referral to [facility]. She denies need for other community services like Meals on Wheels, [employer], or food pantries. She lives with her and feels that she has adequate supports at home. Pt already has a walker, wheelchair and shower seat. She indicates that she would like a commode. Discussed that this is not often covered by Medicare and pt was given options for obtaining a commode for free through localagencies including [facility]. VNA referral initiated, will continue to follow as needed. * Initial Assessments - Merary Orantes, PT - 07/03/2020 2:00 PM EST PT Initial Evaluation Diagnosis: (R) ankle sprain Rehab Potential: Good Evaluation Date: 07/03/2020 Orders through: Consult Referring Physician: Dr. Nilam Blair Anticipated DME and discharge needs: FWW, Home Health PT for ankle sprain Precautions: Full code, fall, up with assistance, Covid Rule Out (asymptomatic) Weight Bearing status: R LE WBAT Time In/Out: 1400/1421 Total time: 21 minutes Cognitive Status: Alert and Oriented x3 Patient Active Problem List Diagnosis ??? Generalized weakness ??? Closed fracture of right distal radius ??? Asthma ??? Benign essential hypertension ??? [...] ??? Osteoporosis Overview Note: DEXA done at [facility] on 10/29/15: osteoporosis at the left hip T-3, and osteopenia of the spine T-1.9 ??? Atherosclerosis of [place] coronary artery of [place] heart without angina pectoris ??? Smokes cigarettes ??? GERD (gastroesophageal reflux disease) ??? Anxiety ??? Depression ??? Post traumatic stress disorder (PTSD) ??? Hidradenitis suppurativa ??? Chronic pain ??? Cervicalgia Overview Note: ??? Lumbago Overview Note: Past Surgical History: Procedure Laterality Date ??? CHOLECYSTECTOMY, OPEN 1991 ??? CREATED BY INTERFACE a carotid bypass Procedure Date: Unknown ??? DENTAL SURGERY 1998 complete dental extractions ??? GASTRIC BYPASS SURGERY 05/05/2000 open, non-divided. Dr Trejo ??? HYSTERECTOMY, TOTAL ABDOMINAL 1985 ??? LIPECTOMY 2001 ??? PRO UPPER GI ENDOSCOPY, BIOPSY N/A 12/03/2015 EGD WITH BIOPSY performed by Ken Sanders MD at [facility] ENDOSCOPY ??? PRO UPPER GI ENDOSCOPY, BIOPSY N/A 09/19/2018 UPPER GASTROINTESTINAL ENDOSCOPY,WITH BIOPSY SINGLE OR MULTIPLE (WRVU 2.49) performed by Tyron Mercado MD at [facility] ENDOSCOPY ??? TONSILLECTOMY ??? UPPER GI ENDOSCOPY, EXAM 12/04/2010 UPPER GI ENDOSCOPY performed by DEE WRIGHT at [facility] ENDOSCOPY Prior Hospital Care related to current admission: Pt presented to ED on 07/03/20 with (R) ankle pain following a mechanical fall on 07/02/20. X-rays negative for fracture Subjective Patient reported history: Pt reports that she was sitting in the recliner, her RYAN had lowered the leg rest for her, but when she got up, it elevated and caught her ankle, causing her to fall. She heard a pop pop pop in her ankle. Prior Level of Function: Community dwelling with assistance. Limited ambulator at baseline due to multiple falls, which pt attributes to lightheadedness. Pt utilizes w/c outside home. She normally ambulates within her home. She sponge bathes at baseline due to difficulty getting in the shower (dizziness?) Home Set Up: 2 stairs to enter, with grab bar to enter, then single floor. Tub/shower with shower chair. Can access home using w/c once in. Pt reports no concern with stairs. Pain: Pt reports pain lateral>medial>anterior. Increased pain with ROM and WB Objective Pt position at start of session: Reclined in stretcher Pt position and personal items at end of session: Reclined in stretcher. Ice pack to (R) ankle. Call curry within reach Range of Motion Spinal: Grossly WNL Upper Extremity: Grossly WNL Lower Extremity: (R) ankle limited in DF, Inv, Ev, all other grossly WNL Strength (quick screen in short sitting unless otherwise noted): Upper Extremities: WNL Lower Extremities: Able to move against gravity and accept WB R DF: 4/5 painful R Inversion: 3+/5 painful R Eversion: 3+/5 painful Transfers: ??? Bed Mobility: Mod I, Increased time o Comments: Increased time ??? Sit/stand: Supervision due to pain o Comments: Decreased WB R LE ??? Ambulation: 30 ft, FWW, Supervision due to pain o Comments: difficulty WB through R LE and increased pain with duration Balance ??? Static Balance Assessment: o Seated: able to move within DAMIR o Standing normal DAMIR: difficulty balancing within DAMIR due to pain and difficulty WB through R LE ??? Dynamic Balance Assessment o Seated: able to move outside DAMIR o Standing: requires significant UE support due to R ankle pain Sensation: Grossly WNL Coordination: Grossly WNL Today's Treatment: ?? PT Evaluation ?? Self Care: ?? Stairs: instructed in sequencing and ability to call fire department if she needs assistance to enter ?? Ambulation: recommend FWW - pt plans to borrow from her friend, otherwise will get one from [employer] ?? Educated pt on availability of shoe lift/evenup to help with leg length if ambulating in walker boot ?? Exercises: Educated to perform ankle pumps, circles, and alphabet. ?? Recommend pt have home health PT to address ankle sprain ?? Education to elevate and ice Assessment Assessment:Pt is a pleasant 60 y.o. female who presented to the ED following a mechanical fall withdecreased ability to weight bear through R LE. xrays negative for (R) ankle fracture. Pt presents with decreased strength and ROM in (R) ankle consistent with ankle sprain. Pain impaired pt ability to WB through R LE. She demonstrated ability to utilize FWW to ambulate short distances and reports she will be able to utilize w/c inside her home. She already frequently uses w/c due to history of falls. Pt will have assistance from her for safe discharge. Pt has demonstrated safe mobility as needed for home access. Recommend continued PT following discharge to address ankle injury. Plan of care has been discussed with the pt and the pt is in agreement. Plan Frequency: Consult Planned Interventions: TherEx, Thac, Neuro, GT, MT, Pt/family education, and d/c planning Plan of care has been discussed with the Pt and the Pt is in agreement Charges: Ev low LookStat, Self care 2017 PT Evaluation Code Rationale: ?? Diagnosis & Pertinent Co-Morbidities, personal factors, and present illness affecting Plan of Care: (see above); Additional personal factors or co- morbidities that impact plan: ?? Total # of Factors: 0 1-2 3+ x ?? Examination of body system impairments, functional limitations and behaviors, and/or participation restrictions. Addressing 1-2 elements Addressing 3 + elements Addressing 4 + elements x ?? Clinical presentation: See assessment above. Stable/Uncomplicated Evolving/Fluctuating Symptoms Unstable/Unpredictable x ?? Clinical decision making of low complexity based on pt's functional performance as outlined in this evaluation. * ED Triage - Evonne Evangelista RN - 07/03/2020 11:41 AM EST 60 yr old female. Alert and oriented. Brought to the EMS for right ankle pain and injury after 2 falls last night. Patient reports she is unable to walk on it. Right ankle splinted with ice in place.CSM+ Pain 01/31. MD in to see patient. documented in this encounter Plan of Treatment Not on file documented as of this encounter Procedures Procedure Name Priority Date/Time Associated Diagnosis Comments RAPID COVID-19 PCR ([facility]/APD/[facility]) STAT 07/03/2020 1:27 PM EST HEMOGRAM STAT 07/03/2020 12:55 PM EST DIFFERENTIAL, AUTOMATED STAT 07/03/2020 12:55 PM EST HC PROTHROMBIN TIME STAT 07/03/2020 1 2:55 PM EST HC CBC,PLT & AUTO DIFF STAT 07/03/2020 12:55 PM EST BASIC METABOLIC PANEL (NON-FASTING) STAT 07/03/2020 12:55 PM EST XR ANKLE MIN 3 VIEWS RIGHT STAT 07/03/2020 12:41 PM EST XR CHEST PA AND LATERAL STAT 07/03/2020 12:40 PM EST documented in this encounter Results * COVID-19 PCR (07/03/2020 1:27 PM EST) SARS-CoV-2 RNA PCR Not Detected Not Detected [facility] Comment: This result should be [...] using the Simplexa COVID-19 Direct Assay by [employer] as authorized by the FDA issued Emergency [...] fact sheets at the following FDA website: https://www.fda.gov/medical-devices/zrokngcfwqp-jaqizlf-0748-ngvbe-07-kznooyjve- use-a fpdexnvnzqxzd-ergndvy-fenembv/uzxfb-vtmpdwbrkhh-xtvz SARS-CoV-2 Source [employer] Swab MA [facility] Nasopharyngeal swab (specimen) 07/03/2020 1:27 PM EST 07/03/2020 2:37 PM EST Comment:Symptoms->COVID-19 S uspected Narrative Resulting Agency Comment Spec In Lab Nilam Blair MD MICROBIOLOGY - GENER AL ORDERABLES [facility] [place] [address] * (ABNORMAL) Differential, Automated (07/03/2020 12:55 PM EST) Neutrophils % 77.3 % [facility] Neutr Abs (ANC) 9.52(H) 1.70 - 6.10 x10(3)/mc L [facility] Lymphocytes % 13.6 % [facility] Lymphocytes Abs 1.7 0.9 - 3.2 x10(3)/mc L [facility] Monocytes % 8.3 % [facility] Monocyte Abs 1.0(H) 0.3 - 0.9 x10(3)/mc L [facility] Eosinophils % 0.3 % [facility] Eosinophils Abs 0.0 0.0 - 0.4 x10(3)/mc L [facility] Basophils % 0.3 % [facility] Basophils Abs 0.0 0.0 - 0.1 x10(3)/mc L [facility] Immature Gran % 0.20 % [facility] Comment: Immature granulocytes(IG's)percentage and absolute count will include metamyelocytes, myelocytes, and promyelocytes. Blood smears from CBCs yielding IG's will be scanned manually for concordance. If this scan disagrees with the automated IG or if promyelocytes are noted, a manual differential will be performed. Fartun Gran Abs 0.03 0.00 - 0.04 x10(3)/mc L [facility] Blood specimen (specimen) 07/03/2020 12:55 PM EST 07/03/2020 1:13 PM EST Narrative Resulting Agency Comment Spec In Lab Nilam Blair MD HEMATOLOGY ORDERABLE S Performing Organization Address [facility] Co de Phone Number LABORATORY [address] [place] [address] * (ABNORMAL) Hemogram (07/03/2020 12:55 PM EST) WBC 12.3(H) 4.0 - 9.5 x10(3)/mcL [facility] RBC 4.57 4.00 - 5.21 x10(6)/mcL [facility] Hemoglobin 14.2 11.7 - 15.5 gm/dL LAB[facility] Hematocrit 43.6 35.7 - 45.8 % [facility] MCV 95.4(H) 82.6 - 94.4 fL [facility] MCH 31.1 27.1 - 32.0 pg LAB[facility] MCHC 32.6 31.7 - 35.0 gm/dL LAB[facility] Platelets 240 145 - 357 x10(3)/mcL [facility] RDWSD 47.8(H) 37.0 - 46.0 fL LAB[facility] RDWCV 13.2 11.5 - 14.1 % LAB[facility] MPV 9.3 7.6 - 12.9 fL LAB[facility]ORY Blood specimen (specimen) 07/03/2020 12:55 PM EST 07/03/2020 1:13 PM EST Narrative Resulting Agency Comment Spec In Lab Nilam Blair MD HEMATOLOGY ORDERABLE S [facility] [address] [place] [address] * Basic Metabolic Panel (non-fasting) (07/03/2020 12:55 PM EST) Glucose Lvl 104 65 - 199 mg/dL LAB[facility]ORY Comment:Diabetes: >=200 mg/d L plus symptoms BUN 17 8 - 18 mg/dL LAB[facility] Creatinine 0.81 0.70 - 1.20 mg/dL LAB[facility] Sodium 139 [...] 101 98 - 107 mmol/L LAB[facility] CO2 29 22 - 31 mmol/L [facility] Anion Gap 9 5 - 15 mmol/L [facility] Calcium 9.7 8.5 - 10.5 mg/dL LAB[facility] Estimated GFR 79 >=60 mL/min/1. 73 m?? [facility] Comment: This patient? s estimated glomerular filtration rate (eGFR) is between 79 mL/min/1.73 m2 (patients with less muscle mass per kg body weight) and 91 mL/min/1.73 m2 (patients with more muscle mass per kg body weight) as determined by the CKD-EPI equation. Assessment of eGFR is not appropriate when creatinine concentrations are rapidly changing. For clinical decisions where creatinine clearance will affect therapy, a 24-hour urine creatinine clearance may be advised. Assignment of CKD stage 1 ? 5 for patients with an eGFR near the transition point between stages may be based on clinical assessment of muscle mass and symptoms in addition to eGFR. Blood specimen (specimen) 07/03/2020 12:55 PM EST 07/03/2020 1:13 PM EST Narrative Resulting Agency Comment Spec In Lab Nilam Blair MD CHEMISTRY ORDERABLES LABORATORY [address] [place] [address] * Prothrombin Time (07/03/2020 12:55 PM EST) PT 12.0 9.4 - 12.5 sec LABORATORY INR 1.0 LABORATORY Comment: An INR <2.0 indicates adequate procoagulant activity for hemostasis in most patients without underlying bleeding disorders, though the INR may not adequately reflect hemostatic capacity in patients with liver disease and synthetic impairment. The recommended target INR range for therapeutic anticoagulation is 2.0 ? 3.0 for most applications, though lower and higher ranges may be appropriate depending on clinical circumstances. Blood specimen (specimen) 07/03/2020 12:55 PM EST 07/03/2020 1:13 PM EST Narrative Resulting Agency Comment Spec In Lab Nilam Blair MD HEMATOLOGY ORDERABLE S [facility] [address] [place] [place] [address] * XR Ankle Min 3 views Right (Generic) (07/03/2020 12:41 PM EST) Anatomical Region Laterality Modality Ankle Right Digital Radiogra phy Impressions 07/03/2020 1:02 PM EST No acute fracture. Thank you for letting us participate in the care of this patient. For questions regarding this report, please contact the number below. ? Electronically signed by: MONTY GRIFFIN DO, [facility] ([phone]), at 07/03/2020 1:02 PM Narrative 07/03/2020 1:02 PM EST EXAMINATION: XR ANKLE MIN 3 VIEWS RIGHT (GENERIC) CLINICAL HISTORY: trauma and pain eval for fracture TECHNIQUE: 3 views RIGHT ankle COMPARISON: Ankle radiographs dated 05/19/2008 FINDINGS: No acute fracture or dislocation. There is no ankle joint effusion. Ankle mortise is intact. Bimalleolar soft tissue swelling. Procedure Note Monty Griffin DO - 07/03/2020 EXAMINATION: XR ANKLE MIN [...] contact the number below. Electronically signed by: MONTY GRIFFIN DO [facility]([phone]), at 07/03/2020 1:02 PM Nilam Blair MD IMG DX ORDERABLES * XR Chest PA & Lateral (Generic) (07/03/2020 12:40 PM EST) Anatomical Region Laterality Modality Chest N/A Digital Radiogra phy Impressions 07/03/2020 1:01 PM EST No acute finding. Thank you for letting us participate in the care of this patient. For questions regarding this report, please contact the number below. ? Electronically signed by: MONTY GRIFFIN DO [facility] ([phone]), at 07/03/2020 1:01 PM Narrative 07/03/2020 1:01 PM EST EXAMINATION: XR CHEST PA AND LATERAL (GENERIC) CLINICAL HISTORY: trauma with rib pain eval for fracture TECHNIQUE: PA and lateral views of the chest. COMPARISON: Chest x-ray dated 09/08/2018 FINDINGS: The cardiomediastinal silhouette is stable. There is no pulmonary vascular congestion, focal consolidation, pleural effusion or pneumothorax. No acute displaced rib fractures. Procedure Note Monty Griffin DO - 07/03/2020 EXAMINATION: XR CHEST PA [...] contact the number below. Electronically signed by: MONTY GRIFFIN DO, [facility]([phone]), at 07/03/2020 1:01 PM Nilam Blair MD IMG DX ORDERABLES documented in this encounter Visit Diagnoses Diagnosis Sprain of right ankle, unspecified ligament, initial encounter documented in this encounter Administered Medications Inactive Administered Medications - up to 3 most recent administrations Medication Order MAR Action Action Date Dose Rate Site acetaminophen (Tylenol) tablet 975 mg 975 mg, Oral, ONCE, 1 dose, On [place] 07/03/20 at 1305, Maximum dose of acetaminophen is 4000 mg from all sources in 24 hours. When ordered for pain, acetaminophen should be given even when other ordered pain medications are indicated. , STAT Given 07/03/2020 1:07 PM EST 975 mg ibuprofen (Advil;Motrin) tablet 600 mg 600 mg, Oral, ONCE, 1 dose, On [place] 07/03/20 at 1305, Administer orally with milk or food to minimize GI irritation , STAT Given 07/03/2020 1:07 PM EST 600 mg documented in this encounter Active and Recently Administered Medications Times are shown in EST. Scheduled Medication Order 07/01/2020 07/02/2020 07/03/2020 acetaminophen (Tylenol) tablet 975 mg (COMPLETED) 975 mg, Oral, ONCE, 1 dose, On [place] 07/03/20 at 1305, Maximum dose of acetaminophen is 4000 mg from all sources in 24 hours. When ordered for pain, acetaminophen should be given even when other ordered pain medications are indicated. , STAT 1307 (Given - Provid er: Evonne Evangelista RN) ibuprofen (Advil;Motrin) tablet 600 mg (COMPLETED) 600 mg, Oral, ONCE, 1 dose, On [place] 07/03/20 at 1305, Administer orally with milk or food to minimize GI irritation , STAT 1307 (Given - Provid er: Evonne E Jean Carlos, RN) documented in this encounter Additional Health Concerns Infection Onset Date Last Indicated Resolved Time Rule Out COVID-19 07/03/2020 07/03/2020 07/03/2020 4:30 PM EST documented as of this encounter Care Teams Sewer Hand Relationship Specialty Start Date End Date Hoang Castellanos, MECHANICAL SYSTEMS CONTROL ENGINEER [address] [place] [address] PCP - General Family Medicine 03/12/20 documented as of this encounter
--- OUTSIDE RECORDS SUMMARY | 2024-02-22 00:52 | XMS_ITS | Encounter Summary ---
[place] [address] Care Team Providers Care Nursing Clinical Director Name Role Phone Hoang Castellanos APRN Primary Care Provider [phone] Encounter Details Date Type Department Care Team (Latest Contact Info) Description 03/19/2020 10:30 AM EDT Ancillary Procedure Radiology XRay at the [facility] at [facility] [address] [place] [address] Talita Hernandez MD [address] [place] [address] Closed fracture of distal end of right [...] Comments XR WRIST 2 VIEWS RIGHT Routine 03/19/2020 10:15 AM EDT Closed fracture of distal end of right radius, unspecified fracture morphology, sequela documented in this encounter Results * XR Wrist 2 views Right (03/19/2020 10:15 AM EDT) Anatomical Region Laterality Modality Hand, Wrist Right Digital Radiogra phy Impressions 03/19/2020 10:26 AM EDT Comminuted fracture of the distal radius, with increased impaction and dorsal angulation since the prior exam. Secondary positive ulnar variance. Thank you for letting us participate in the care of this patient. For questions regarding this report, please contact the number below. ? Narrative 03/19/2020 10:26 AM EDT EXAMINATION: XR WRIST 2 VIEWS RIGHT CLINICAL HISTORY: RIGHT Intra-Articular Distal Radius Fx 02/04/20, Assess healing PA/Lateral TECHNIQUE: 2 views RIGHT wrist COMPARISON: 02/12/2020 FINDINGS: Casting material has been removed. Redemonstrated is a comminuted and intra-articular fracture of the distal radius. There is increased impaction of the fracture since the prior exam, with subsequent positive ulnar variance. Degree of dorsal angulation has also increased, and there is mild depression of the articular surface at the ulnar fragment. There is a nondisplaced fracture of the ulnar styloid. Procedure Note Flory Bedoya MD - 03/19/2020 EXAMINATION: XR WRIST 2 VIEWS RIGHT CLINICAL HISTORY: RIGHT Intra-Articular Distal Radius Fx 02/04/20,Assess healing PA/Lateral TECHNIQUE: 2 views RIGHT wrist COMPARISON: 02/12/2020 FINDINGS: Casting material has been removed. Redemonstrated is a comminuted and intra-articular fracture of the distal radius. There is increasedimpaction of the fracture since the prior exam, with subsequent positive ulnarvariance. Degree of dorsal angulation has also increased, and there is milddepression of the articular surface at the ulnar fragment. There is a nondisplacedfracture of the ulnar styloid. IMPRESSION Comminuted fracture of the distal radius, with increased impaction anddorsal angulation since the prior exam. Secondary positive ulnar variance. Thank you for letting us participate in the care of this patient. Forquestions regarding this report, please contact the number below. Talita Hernandez MD IMG DX ORDERABLES documented in this encounter Visit Diagnoses Diagnosis Closed fracture of distal end of right radius, unspecified fracture morphology, sequela documented in this encounter Care Teams Nursing Clinical Director Relationship Specialty Start Date End Date Hoang Castellanos, SAM [address] [place] [address] PCP - General Family Medicine 03/12/20 documented as of this encounter
--- OUTSIDE RECORDS SUMMARY | 2024-02-22 00:52 | XMS_ITS | Encounter Summary ---
Author Organization [facility] [place] [address] Care Team Providers Care Seed Cleaning Machine Operator Name Role Phone Hoang Castellanos APRN Primary Care Provider Encounter Details Date Type Department Care Team (Late st Contact Info) Description 07/04/2020 Telephone Primary Care at [facility] [address] [place] [phone] Isadora Hidalgo LPN Social History Tobacco Use [...] Telephone Encounter - Isadora Hidalgo LPN - 07/04/2020 10:27 AM EST Date of Emergency Room Visit: 07/03/20 Name and phone of Emergency Room: [place], [place] [phone] Name of Emergency Room Provider? Nilam Blair MD Emergency Room Diagnosis? Right ankle ain Were imaging studies done? yes Were labs drawn? yes Was the patient prescribed medications? no Follow up instructions from Emergency Room? Call PCP 12/12 First follow-up contact? Patient How is patient feeling now? Pain is under control with tylenol, Follow up appointment made: no Patient question or concerns: afraid this happens again, ER recommended for her to call PCP to figure out about her dizziness, patient was refer to neurology she is afraid to make the appointment dueto covid, wants to talk to RA Per RA telehealth appointment schedule for 07/14 at 3:30 Jeannie requested that her protective services case worker be part of this appointment documented in this encounter Plan of Treatment Not on file documented as of this encounter Visit Diagnoses Not on filedocumented in this encounter Care Teams Seed Cleaning Machine Operator Relationship Specialty Start Date End Date Hoang Castellanos, FEED ADVISER [address] [place] [address] PCP - General Family Medicine 03/12/20 documented as of this encounter
--- OUTSIDE RECORDS SUMMARY | 2024-02-22 00:52 | XMS_ITS | Encounter Summary ---
Author Organization [facility] [place] [address] Care Team Providers Care Employment Law Attorney Name Role Phone Hoang Castellanos APRN Primary Care Provider [phone] Encounter Details Date Type Department Care Team (Late st Contact Info) Description 04/04/2020 Telephone Orthopaedics at [facility] [address] [place] [phone] Talita Hernandez MD [address] [place] [address] Social History Tobacco Use Types Packs/Day Years [...] encounter Miscellaneous Notes * Telephone Encounter - Talita Hernandez MD - 04/08/2020 4:12 PM EDT Please let the patient know that her fracture has not fully healed but it has not shifted. She needs to wear the exo brace at all times except when doing gentle wrist flexion and extension ( no palm up or down) she should not twist with it eithe. Repeat film in 3 weeks. * Telephone Encounter - Eugenie Moreau MA - 04/04/2020 9:29 AM EDT Jeannie contacted Talita Hernandez's office this morning to discuss her hand. Patient was scheduled for anappointment yesterday, however screened positive for COVID symptoms at the door and was sent to PCP, who ordered a COVID test. Patient explained that COVID test came back negative (see lab results) and is wondering what the action plan for her hand is. Patient explained that her cast came off on Tuesday, Apr 02 and feels as though it has slipped. Patient states that she has been wearing a wrist splint at all times since her cast came off. With consulting with [facility], plan was relayed that she will come in for x-ray appointment Tuesday to assess healing and staff will consult with Dr. Hernandez for next steps. Patient was in agreement with this plan and will contact the office with any further questions. documented in this encounter Plan of Treatment Not on file documented as of this encounter Visit Diagnoses Not on filedocumented in this encounter Care Teams Employment Law Attorney Relationship Specialty Start Date End Date Hoang Castellanos APRN [address] [place] [address] PCP - General Family Medicine 03/12/20 documented as of this encounter
--- OUTSIDE RECORDS SUMMARY | 2024-02-22 00:52 | XMS_ITS | Encounter Summary ---
[place] [address] Care Team Providers Care Intensive Care Unit Nurse Name Role Phone Hoang Castellanos APRN Primary Care Provider Reason for Visit * Reason Onset Date Comments Medication Refill 05/30/2020 Medication Refill 06/03/2020 Encounter Details Date Type Department Care Team (Late st Contact Info) Description 05/30/2020 Refill Primary Care at [facility] [place] [phone] Isadora Hidalgo LPN Social History Tobacco Use [...] Telephone Encounter - Isadora Hidalgo LPN - 06/03/2020 11:46 AM EST Spoke with Jeannie she states she is doing ok just keeping the nitrostat in case she needs it. Jeannie thank me for the call. * Telephone Encounter - Hoang Castellanos APRN - 06/02/2020 9:16 AM EST Please check in with patient and ask her if she is having any cardiac sx, which may warrant an appt-thanks * Telephone Encounter - Isadora Hidalgo LPN - 05/30/2020 5:37 PM EST Received a fax requesting Rx for Nitrostat sub 0.4 mg Look like this prescription was given on 2014 by Aman Lawrence . documented in this encounter Plan of Treatment Not on file documented as of this encounter Visit Diagnoses Not on filedocumented in this encounter Care Teams Intensive Care Unit Nurse Relationship Specialty Start Date End Date Hoang Castellanos APRN [address] [place] [address] PCP - General Family Medicine 03/12/20 documented as of this encounter
--- OUTSIDE RECORDS SUMMARY | 2024-02-22 00:52 | XMS_ITS | Encounter Summary ---
Author Organization [facility] [address] Care Team Providers Care Housekeeper Head Name Role Phone Hoang Castellanos APRN Primary Care Provider Reason for Visit * Reason Onset Date Comments Medication Refill 03/12/2020 Encounter Details Date Type Department Care Team (Late st Contact Info) Description 03/12/2020 Refill Primary Care at [facility] [address] [place] [phone] Hoang Castellanos APRN [address] [place] [address] Dizziness; Chronic right-sided low back pain without [...] Encounter - Isadora Hidalgo LPN - 03/12/2020 11:25 AM EDT [facility] ortho call they need patient's HT, WT, and different diagnosis.new Rx send with all information documented in this encounter Plan of Treatment Not on file documented as of this encounter Visit Diagnoses Diagnosis Dizziness Dizziness and giddiness Chronic right-sided low back pain without sciatica documented in this encounter Care Teams Housekeeper Head Relationship Specialty Start Date End Date Hoang Castellanos APRN [address] [place] [address] PCP - General Family Medicine 03/12/20 documented as of this encounter
--- OUTSIDE RECORDS SUMMARY | 2024-02-22 00:52 | XMS_ITS | Encounter Summary ---
Author Organization [facility] [place] [address] Care Team Providers Care Lead Welder Name Role Phone Hoang Castellanos APRN Primary Care Provider Reason for Visit * Reason Onset Date Comments Medication Refill 03/21/2020 Encounter Details Date Type Department Care Team (Late st Contact Info) Description 03/21/2020 Refill Primary Care at [facility] [address] [facility] [place] [phone] Isadora Hidalgo LPN Social History Tobacco Use [...] Telephone Encounter - Isadora Hidalgo LPN - 03/21/2020 9:35 AM EDT Received a fax Requesting rx for isosorbide 30 mg Last Prescription Fill Date: 04/11/19 Number Dispensed and Refills: 90, 3 refills [...] on filedocumented in this encounter Care Teams Lead Welder Relationship Specialty Start Date End Date Hoang Castellanos, SAM [address] [place] [address] PCP - General Family Medicine 03/12/20 documented as of this encounter
--- OUTSIDE RECORDS SUMMARY | 2024-02-22 00:52 | XMS_ITS | Encounter Summary ---
Author Organization [facility] [place] [address] Care Team Providers Care Linotype Machinist Apprentice Name Role Phone Hoang Castellanos APRN Primary Care Provider Reason for Visit * Reason Onset Date Comments Medication Refill 05/09/2020 Encounter Details Date Type Department Care Team (Late st Contact Info) Description 05/09/2020 Refill Primary Care at [facility] [place] [phone] Isadora Hidalgo LPN Social History Tobacco Use [...] Telephone Encounter - Isadora Hidalgo LPN - 05/09/2020 10:54 AM EDT Received a fax from pharmacy requesting Rx for Advair. Last Prescription Fill Date: 06/01/19 Number Dispensed and Refills: 180, 3 refills Last Related Office Visit: 03/04/20 [...] on filedocumented in this encounter Care Teams Linotype Machinist Apprentice Relationship Specialty Start Date End Date Hoang Castellanos APRN [address] [place] [address] PCP - General Family Medicine 03/12/20 documented as of this encounter
--- OUTSIDE RECORDS SUMMARY | 2024-02-22 00:53 | XMS_ITS | Encounter Summary ---
Author Organization [facility] Address [facility] [place] [address] Care Team Providers Care Gumming Machine Operator Name Role Phone Hoang Castellanos APRN Primary Care Provider [phone] Reason for Visit * Reason Comments Establish Care Right distal radius and ulnar styloid fracture 02/04/20 * Consultation (Routine) - Specialty Diagnoses / Procedures Referred By Vanita dimas Referred To Contact Orthopaedics Diagnoses Closed fracture of distal end of right radius, unspecified fracture morphology, initial encounter Hoang Castellanos APRN [address] [facility] [address] [facility] [address] [place] [address] Referral ID Status Reason Start Date Expiration Date Visits Requested Visits Authorized [id number] Specialty Service Requested 02/05/2020 02/04/2021 6 6 Encounter Details Date Type Department Care Team (Late st Contact Info) Description 02/06/2020 10:00 AM EDT Office Visit Orthopaedics at [facility] [address] [place] [address] Talita Hernandez MD [address] [facility] [place] [address] Other closed intra-articular fracture of distal end of right radius, initial encounter Social History Tobacco Use Types Packs/Day [...] Reading Time Taken Comments Blood Pressure 100/60 02/05/2020 1:45 PM EDT Pulse 58 02/05/2020 1:45 PM EDT Temperature - - Respiratory Rate 16 02/05/2020 1:45 PM EDT Oxygen Saturation 94% 02/05/2020 1:45 PM EDT Inhaled Oxygen Concentration - - Weight 107.5 kg (236 lb 15.9 oz) 02/05/2020 1:45 PM EDT Height 163.8 cm (5' 4.49) 02/05/2020 1:45 PM ED T Body Mass Index 40.07 02/05/2020 1:45 PM EDT documented in this encounter Progress Notes * [facility] [facility] - 02/06/2020 10:00 AM EDT Hand Surgery Outpatient Consultation Note History of Present Illness or Injury: Jeannie Rico is a 59 y.o. year old female, RIGHT hand dominant, is being seen at the request of Hoang Castellanos APRN, for the evaluation and treatment of Right intra-articular distal radius and ulnar styloid fracture 02/04/20. Patient reports symptoms began approximately 2 days ago, after an injury that occurred she fell on an outstretched hand in her garden.. Patient's greatest concern regarding her symptoms is pain and use of her hands. Patient reports that her symptoms have made it made it somewhat difficult to work, take care of things at home, and or do recreational activities or hobbies. Patient reports pain, at its worst is a 3 on a scale of 0-10; describing it as achy. Patient also reports decreased range of motion, joint pain, night pain, stiffness, swelling and weakness of effected extremity. Patient reports that gripping, getting up from a chair, lifting , normal daily activities and pinching aggravate her symptoms. Patient has treated her symptoms with ice/heat, rest/elevation and brace/wrap; with no improvement improvement. Patient does not have any history of cold hands, blanching, or cyanosis; and does not carry a diagnosis of Raynaud's. Patient carries diagnosis of Diabetes, Osteoporosis and Thyroid Disease. Patient's family history is positive for Autoimmune Disease, Diabetes and Osteoarthritis. Review of Systems Constitutional: Negative for chills, fatigue, fever and unexpected weight change. HENT: Negative for hearing loss, nosebleeds and trouble swallowing. Eyes: Negative for visual disturbance. Respiratory: Negative for cough, chest tightness and shortness of breath. Cardiovascular: Negative for chest pain, palpitations and leg swelling. Gastrointestinal: Negative for abdominal pain, constipation, diarrhea, nausea and vomiting. Endocrine: Negative for cold intolerance and heat intolerance. Genitourinary: Negative for difficulty urinating and pelvic pain. Musculoskeletal: Negative for arthralgias, back pain, gait problem, joint swelling, neck pain and neck stiffness. Right wrist pain Skin: Negative for pallor, rash and wound. Neurological: Negative for seizures, weakness, numbness and headaches. Psychiatric/Behavioral: Negative for confusion, dysphoric mood and sleep disturbance. The patient [...] Medication Sig Dispense Refill ??? lisinopriL (Prinivil;Zestril) 10 mg Tablet Take 1 tablet by mouth daily. 90 tablet 3 ??? sertraline (ZOLOFT) 100 mg Tablet Take 1 tablet by mouth daily. ??? Acidophilus Capsule TAKE TWO (2) CAPSULES BY MOUTH TWICE A DAY 112 capsule 11 ??? multivitamin (THERAGRAN) Tablet Take 1 tablet by mouth daily. ??? polyethylene glycoL (Miralax) 17 gram/dose Powder [...] 6 hours as needed for Indigestion. ??? meloxicam (MOBIC) 15 mg Tablet Take 1 tablet by mouth daily. 30 tablet 11 ??? sertraline (Zoloft) 50 mg Tablet Take [...] mouth daily. 90 tablet 3 ??? ibuprofen (ADVIL;MOTRIN) 600 mg Tablet TAKE ONE (1) TABLET BY MOUTH THREE TIMES A DAY NEEDED-SKIP ASPIRIN IF USING THIS- (VIAL) 90 tablet 3 ??? tiotropium bromide (SPIRIVA [...] 75 mg by mouth nightly. ??? [DISCONTINUED] lidocaine (LIDODERM) 5 % Adhesive Patch, Medicated Place 1 patch onto affected area for 12 hours then remove for 12 hours 30 patch 5 ??? calcium-vitamin D 500 mg(1,250mg) -200 unit Tablet Take 1 tablet by mouth 2 times daily (with meals). ??? [DISCONTINUED] lisinopriL (Prinivil;Zestril) 5 mg Tablet ??? prazosin (Minipress) 2 mg Capsule Take 3 capsules by mouth nightly. (Patient not taking: Reported on 01/08/2020) 84 each 11 ??? [DISCONTINUED] cholecalciferol, Vitamin D3, 2,000 unit Tablet Take 1 tablet by mouth daily. (Patient not taking: Reported on 01/08/2020) 90 tablet 3 ??? [DISCONTINUED] lisinopril (PRINIVIL;ZESTRIL) 10 mg Tablet Take 1.5 tablets by mouth daily. 135 tablet 3 No current facility-administered medications on file prior to visit. Past Medical History: Diagnosis Date ??? Depression ??? Diabetes mellitus ??? Hypertension ??? Osteoporosis ??? Thyroid disease Patient Active Problem List Diagnosis Code ??? Cervicalgia M54.2 ??? Chronic pain G89.29 ??? Lumbago M54.5 ??? Atherosclerosis of [place] coronary artery of [place] heart without angina pectoris I25.10 ??? Smokes cigarettes F17.210 ??? GERD (gastroesophageal reflux disease) K21.9 ??? Anxiety F41.9 ??? Depression F32.9 ??? Post traumatic stress disorder (PTSD) F43.10 ??? Hidradenitis suppurativa L73.2 ??? Obesity, S/P remote gastric bypass in 1995, prior VBG E66.9 ??? Osteoporosis M81.0 ??? Borderline personality disorder F60.3 ??? Asthma J45.909 ??? Benign essential hypertension I10 ??? Bulimia F50.2 ??? Chronic obstructive pulmonary disease J44.9 ??? Constipation K59.00 ??? Diabetes mellitus, type II E11.9 ??? Dizziness R42 ??? Hyperlipidemia E78.5 ??? Obstructive sleep apnea (adult) (pediatric) G47.33 ??? Osteoarthrosis M19.90 ??? Seizures R56.9 ??? Suicide attempt T14.91XA ??? Coronary artery disease I25.10 ??? Headache R51 ??? Bipolar disorder F31.9 ??? Low back pain M54.5 ??? Hypothyroidism, acquired E03.9 ??? Right forearm pain M79.631 ??? Closed fracture of right distal radius S52.501A Past Surgical History: Procedure Laterality Date ??? CHOLECYSTECTOMY, OPEN 1991 ??? CREATED BY INTERFACE a carotid bypass Procedure Date: Unknown ??? DENTAL SURGERY 1998 complete dental extractions ??? GASTRIC BYPASS SURGERY 05/05/2000 open, non-divided. Dr Trejo ??? HYSTERECTOMY, TOTAL ABDOMINAL 1985 ??? LIPECTOMY 2001 ??? PRO UPPER GI ENDOSCOPY, BIOPSY N/A 12/03/2015 EGD WITH BIOPSY performed by Ken Sanders MD at [facility] ENDOSCOPY ??? PRO UPPER GI ENDOSCOPY, BIOPSY N/A 09/19/2018 UPPER GASTROINTESTINAL ENDOSCOPY,WITH BIOPSY SINGLE OR MULTIPLE (WRVU 2.49) performed by Tyron Mercado MD at [facility] ENDOSCOPY ??? TONSILLECTOMY ??? UPPER GI ENDOSCOPY, EXAM 12/04/2010 UPPER GI ENDOSCOPY performed by DEE WRIGHT at [facility] ENDOSCOPY Family History Problem (# of Occurrences) [...] Type 2 Diabetes (2) Father, Maternal Grandfather Social History Occupational History ??? Not on file Tobacco Use ??? Smoking status: Current Every Day Smoker Packs/day: 0.50 Years: 45.00 Pack years: 22.50 Types: Cigarettes ??? Smokeless tobacco: Never Used Substance and Sexual Activity ??? Alcohol use: No ??? Drug use: Yes Types: Marijuana Comment: 3 times per day, medical ??? Sexual activity: Not on file Patient Care Team: Hoang Castellanos APRN as PCP - General (Family Medicine) None as PCP - Regular Care Provider Sheree Gillespie MD (Psychiatry) Visit Vitals BP 100/60 Pulse 58 Resp 16 Ht 163.8 cm (5' 4.49) Wt 107.5 kg (236 lb 15.9 oz) LMP (LMP Unknown) SpO2 94% BMI 40.07 kg/m?? Relevant Laboratory Values: Lab Results Component Value Date HA1C 6.0 (H) 01/01/2020 Lab Results Component Value Date [id number] 02/07/2019 Lab Results Component Value Date TSH 1.53 01/01/2020 No results found for: URICACID * Talita Hernandez MD - 02/06/2020 10:00 AM EDT Hand Surgery Outpatient Consultation Note Reason for Consult: The patient is seen at the request of Hoang aCstellanos for evaluation and treatment of Chief Complaint Patient presents with ??? Establish Care Right distal radius and ulnar styloid fracture 02/04/20 History of Present Illness: Jeannie Rico is a 59 y.o. female who presents today for evaluation of her right wrist. The patient was gardening and slipped landing on her right foot wrist and forearm as well as her right hip. She was seen by her primary care physician yesterday who referred her down for a splint. The patient says she got dizzy and has had significant dizzy spells for well over a year. She does have issues with chronic pain and uses medical marijuana for that. She is a diabetic but her hemoglobin A1c is 6.The radiographs showed an intra-articular fracture with a intact distal radial ulnar joint but displacement on the lateral view of approximately 15 degrees. The patient says that last night she did have some tingling in her fingers but that has resolved. The pain is controlled with the medical marijuana. She also has pain in her hip but no hip films per se were done she says that she had pain in the hip prior to the fall but it is slightly worse since the fall. . Her primary care physician is following this and is ordering an MRI. llReview of Systems Allergies Allergen Reactions ??? Morphine Shortness Of Breath ??? Sumatriptan Hives ??? Oxycodone Other (See Comments) drunk feeling, dizzy ??? Oxycodone-Acetaminophen Other (See Comments) dizziness, feels drunk ??? Chantix [Varenicline] psychotic ??? Imitrex [Sumatriptan Succinate] Hives ??? Prednisone Other reaction(s): aggitation Current Outpatient Medications on File Prior to Visit Medication Sig Dispense Refill ??? lisinopriL (Prinivil;Zestril) 10 mg Tablet Take 1 tablet by mouth daily. 90 tablet 3 ??? sertraline (ZOLOFT) 100 mg Tablet Take 1 tablet by mouth daily. ??? Acidophilus Capsule TAKE TWO (2) CAPSULES BY MOUTH TWICE A DAY 112 capsule 11 ??? multivitamin (THERAGRAN) Tablet Take 1 tablet by mouth daily. ??? polyethylene glycoL (Miralax) 17 gram/dose Powder Take 17 g by mouth 2 times daily. 1020 g 11 ??? ferrous sulfate 325 mg (65 mg iron) Tablet Take 1 tablet by mouth three times a week. 36 tablet3 ??? lancets 30 gauge Misc 1 each by Misc.(Non-Drug; Combo Route) route daily. (Patient not taking: Reported on 02/05/2020) 100 each 3 ??? simvastatin (Zocor) 40 [...] 6 hours as needed for Indigestion. ??? meloxicam (MOBIC) 15 mg Tablet Take 1 tablet by mouth daily. 30 tablet 11 ??? sertraline (Zoloft) 50 mg Tablet Take [...] mouth daily. 90 tablet 3 ??? ibuprofen (ADVIL;MOTRIN) 600 mg Tablet TAKE ONE (1) TABLET BY MOUTH THREE TIMES A DAY NEEDED-SKIP ASPIRIN IF USING THIS- (VIAL) 90 tablet 3 ??? tiotropium bromide (SPIRIVA [...] Take 75 mg by mouth nightly. ??? calcium-vitamin D 500 mg(1,250mg) -200 unit Tablet Take 1 tablet by mouth 2 times daily (with meals). ??? prazosin (Minipress) 2 mg Capsule Take 3 capsules by mouth nightly. (Patient not taking: Reported on 01/08/2020) 84 each 11 No current facility-administered medications on file prior to visit. Past Medical History: Diagnosis Date ??? Depression ??? Diabetes mellitus ??? Hypertension ??? Osteoporosis ??? Thyroid disease Patient Active Problem List Diagnosis Code ??? Cervicalgia M54.2 ??? Chronic pain G89.29 ??? Lumbago M54.5 ??? Atherosclerosis of [place] coronary artery of [place] heart without angina pectoris I25.10 ??? Smokes cigarettes F17.210 ??? GERD (gastroesophageal reflux disease) K21.9 ??? Anxiety F41.9 ??? Depression F32.9 ??? Post traumatic stress disorder (PTSD) F43.10 ??? Hidradenitis suppurativa L73.2 ??? Obesity, S/P remote gastric bypass in 1995, prior VBG E66.9 ??? Osteoporosis M81.0 ??? Borderline personality disorder F60.3 ??? Asthma J45.909 ??? Benign essential hypertension I10 ??? Bulimia F50.2 ??? Chronic obstructive pulmonary disease J44.9 ??? Constipation K59.00 ??? Diabetes mellitus, type II E11.9 ??? Dizziness R42 ??? Hyperlipidemia E78.5 ??? Obstructive sleep apnea (adult) (pediatric) G47.33 ??? Osteoarthrosis M19.90 ??? Seizures R56.9 ??? Suicide attempt T14.91XA ??? Coronary artery disease I25.10 ??? Headache R51 ??? Bipolar disorder F31.9 ??? Low back pain M54.5 ??? Hypothyroidism, acquired E03.9 ??? Right forearm pain M79.631 ??? Closed fracture of right distal radius S52.501A Past Surgical History: Procedure Laterality Date ??? CHOLECYSTECTOMY, OPEN 1991 ??? CREATED BY INTERFACE a carotid bypass Procedure Date: Unknown ??? DENTAL SURGERY 1998 complete dental extractions ??? GASTRIC BYPASS SURGERY 05/05/2000 open, non-divided. Dr Trejo ??? HYSTERECTOMY, TOTAL ABDOMINAL 1985 ??? LIPECTOMY 2001 ??? PRO UPPER GI ENDOSCOPY, BIOPSY N/A 12/03/2015 EGD WITH BIOPSY performed by Ken Sanders MD at [facility] ENDOSCOPY ??? PRO UPPER GI ENDOSCOPY, BIOPSY N/A 09/19/2018 UPPER GASTROINTESTINAL ENDOSCOPY,WITH BIOPSY SINGLE OR MULTIPLE (WRVU 2.49) performed by Tyron Mercado MD at [facility] ENDOSCOPY ??? TONSILLECTOMY ??? UPPER GI ENDOSCOPY, EXAM 12/04/2010 UPPER GI ENDOSCOPY performed by DEE WRIGHT at [facility] ENDOSCOPY Family History Problem (# of Occurrences) [...] Type 2 Diabetes (2) Father, Maternal Grandfather Social History Occupational History ??? Not on file Tobacco Use ??? Smoking status: Current Every Day Smoker Packs/day: 0.50 Years: 45.00 Pack years: 22.50 Types: Cigarettes ??? Smokeless tobacco: Never Used Substance and Sexual Activity ??? Alcohol use: No ??? Drug use: Yes Types: Marijuana Comment: 3 times per day, medical ??? Sexual activity: Not on file Physical Examination: BP 100/60 Pulse 58 Resp 16 Ht 163.8 cm (5' 4.49) Wt 107.5 kg (236 lb 15.9 oz) LMP (LMP Unknown) SpO2 94% BMI 40.07 kg/m?? Constitutional: Well-nourished, well-developed, alert in no acute distress Psychiatric: Mood and affect: The patient is pleasant and in a good moodShe is here with her care provider Dermis: There are no cuts or scratches on the hand. There are no new rashes or skin lesions noted. There is no ecchymosis. They have soft supple skin with normal moisture. Inspection: There is mild edema, volar wrist on the right palpation: There is pain to palpation over the right distal radius vascular: There is normal capillary refill and temperature. Sensory: Sensation is intact and symmetric to light touch in all digits. Range of motion: ??? Digits:There is full range of motion at the MP, PIP, and DIP joints of the index-little finger.Thumb opposition is to the base of the little finger. ??? Wrist: ?? WE/WF: Not tested secondary to the known fracture ?? Elbow: 0/1 125 Motor: ??? Muscle bulk: No atrophy ??? Muscle tone: Normal tone, no fasciculations Manual motor grades: Thumb opposition, palmar abduction, thumb abduction, finger abduction, finger adduction, FDP to the index through little finger, FPL, EPL, EDC index through little finger, are functioning although full manual motor grades cannot be utilized secondary to pain Images: The 3 views of the right wrist that were obtained yesterday were shown to the patient and reviewed showing a dorsal tilt to an intra-articular fr extension and flexion Talita Hernandez MD acture of the right distal radius with intact distal radial ulnar joint specifically the lunate facet. Assessment and plan: The patient has a mildly displaced intra-articular fracture of the right distal radius. She expressed that she does not want surgery unless she absolutely needs to have it. I do not feel that she is a good surgical candidate at this point in time and warrants reevaluation by her primary care physician to assess whether or not if we needed to proceed with surgery we could. We will place her in a Mu nster cast bringing the wrist into neutral alignment it was in slight flexion and repeat the films.We will follow her up in 1 week's time with repeat films and if the patient feels that she would prefer to treat this nonoperatively and accept the risks of loss of range of motion then we will continue with nonoperative care. CC: Hoang Castellanos documented in this encounter Miscellaneous Notes * Addendum Note - Irasema Rincon RN - 02/06/2020 10:00 AM EDTAddended by: IRASEMA RINCON on: 02/06/2020 10:39 AM Modules accepted: Orders documented in this encounter Plan of Treatment Not on file documented as of this encounter Results * XR Wrist 2 views Right (02/12/2020 9:22 AM EDT) Anatomical Region Laterality Modality Hand, Wrist Right Digital Radiogra phy Impressions 02/12/2020 10:17 AM EDT Stable fracture alignment. Thank you for letting us participate in the care of this patient. For questions regarding this report, please contact the number below. ? Narrative 02/12/2020 10:17 AM EDT EXAMINATION: XR WRIST 2 VIEWS RIGHT CLINICAL HISTORY: RIGHT distal radius fracture pa/lateral views RIGHT wrist TECHNIQUE: 2 views RIGHT wrist COMPARISON: 02/05/2020 FINDINGS: An overlying cast is in place. A comminuted fracture of the distal radius is once again identified. Avulsion of the ulnar styloid is noted. The proximal and distal carpal row are in good alignment. There is no change in fracture alignment. Procedure Note Rinku Wilkins MD - 02/12/2020 EXAMINATION: XR WRIST 2 VIEWS RIGHT CLINICAL HISTORY: RIGHT distal radius fracture pa/lateral views RIGHT wrist TECHNIQUE: 2 views RIGHT wrist COMPARISON: 02/05/2020 FINDINGS: An overlying cast is in place. A comminuted fracture of the distal radiusis once again identified. Avulsion of the ulnar styloid is noted. Theproximal and distal carpal row are in good alignment. There is no change in fracture alignment. IMPRESSION Stable fracture alignment. Thank you for letting us participate in the care of this patient. Forquestions regarding this report, please contact the number below. Talita Hernandez MD IMG DX ORDERABLES documented in this encounter Visit Diagnoses Diagnosis Other closed intra-articular fracture of distal end of right radius, initial encounter Other closed intra-articular fracture of distal end of right radius, initial encounter documented in this encounter Care Teams Gumming Machine Operator Relationship Specialty Start Date End Date Hoang Castellanos, SAM [address] [place] [address] PCP - General Family Medicine 12/07/19 03/11/20 documented as of this encounter
--- OUTSIDE RECORDS SUMMARY | 2024-02-22 00:53 | XMS_ITS | Encounter Summary ---
[place] [address] Care Team Providers Care Administration Dean Name Role Phone Hoang Castellanos APRN Primary Care Provider Encounter Details Date Type Department Care Team (Late st Contact Info) Description 01/08/2020 1:00 PM EDT TH Visit (TeleHealth) [place] [address] Priya Charles, SCREEN PRINTING MACHINE OPERATOR [facility] [place] [address] Tamar Guerra, RD [facility] [place] [address] Essential hypertension; Smokes cigarettes; Gastroesophageal reflux disease, esophagitis presence not specified; Obesity, unspecified classification, unspecified obesity type, unspecified whether serious comorbidity present; Benign essential hypertension; Constipation, unspecified constipation type; Type 2 diabetes mellitus without complication, without long-term current use of insulin; Hyperlipidemia, unspecified hyperlipidemia type; Obstructive sleep apnea (adult) (pediatric); Disorder of iron metabolism; Post-resection malabsorption Social [...] this encounter Patient Instructions * Patient Instructions* Tamar Guerra, RD - 01/08/2020 1:00 PM EDT [facility] lab support tech Lela [phone] and [place] [phone] Dietitians: [phone] Surgeons/ nurse practitioners: [phone] Nurse line: [phone] Dear Jeannie It was nice talking to you today. Below please find a summary of our discussion/recommendations from your visit. Testing: Lab orders are in the system, please have them done when you are able. I will plan to follow up with you once I have your results and make additional recommendations re: your vitamins and supplements. Please call/send my message if you have not heard from us within 2weeks of having labs work done. Next visit: Recommend follow up in 1 year. Please call [phone] if you do not receive an appointment by 3-4weeks prior to the expected visit. Recommendations ?? Consider tapering Prilosec to every other day x 2 weeks, if no reflux symptoms may stop Prilosec. Restart if symptoms return. ??? Constipation: miralax daily to twice daily, fiber supplement (yerba prima is a good brand), andincrease activity. Call if you continue to struggle with constipation. ??? Smoking cessation follow up with PCP or [facility] for additional support. ??? Iron supplement three times a week, may need to increase miralax to 2x day on the day you takesIron. Call if having difficulty tolerating iron. Vitamins: Further recommendations pending testing results The following vitamins are recommended: Please send us a photo of your supplements and prescriptionmedications you are taking. ??? Multivitamins with minerals daily- Take 2 pills daily ??? Vitamin B12 1000 mcg by mouth once daily ??? Calcium citrate 600 mg with Vitamin D 400 units twice daily (2 pills twice a day) ??? Iron with Vitamin C, 50-66 mg three times weekly (take iron with vitamin C 250 mg to help with absorption). ??? Vitamin D 2000 IU daily or as recommended Nutrition recommendations: - Continue to focus on protein first at all meals. On days you have oatmeal at breakfast you may need to have a protein drink as a snack to aid in meeting protein needs. - OK to decrease your water intake to 4-5 16 oz bottles water daily. - Consider slowing down the speed of drinking your protein drink to see if it's better tolerated. Also make sure your almond milk does not have added sugar in it. - Your Daily Goals: ?? 1,000-1,200 calories per day (300 calories per meal, 100 calories per snack, 1-2 snacks per day) ?? Goal 60 grams of protein per day (20 grams per meal) ?? 48-64 oz of non-caloric and hydrating fluids per day (6-8, 8 oz cups) ?? Do not drink with meals- pushes food through more quickly, can cause upset stomach Activity: Great work restarting your walking routine! ??? Aim for 30 minutes of exercise daily, 5 days a week of both cardio and strength training exercises. Alcohol: should be used sparingly, no more than one drink per occasion. Alcohol is a source of empty calories and can cause ulcers and vitamin and mineral deficiencies. Alcohol is toxic to the liver and is absorbed more quickly after surgery, it stays in the system longer. Studies have noted that there is an increased risk of alcohol dependence after bariatric surgery. Alcohol is not recommended until at least1 year post surgery, and after goal weight has been achieved f non-prescribed drugs and treet drugs is unsafe Anti-inflammatory medications such as Ibuprofen (Advil), Aleve (Naproxen), Excedrin, should be usedsparingly after gastric bypass, since they increase the risk of ulcer and bleeding. Potential lifetime risks of gastric bypass include risk of ulcer, which is increased with alcohol and antiinflammatory medications and internal hernia (less than 5%), which may be increased with higher than predicted weight loss Call us: ??? If you have concerns. ??? If you have unexplained abdominal pain. ??? if you see blood in your stool or vomit blood ??? If you have prolonged vomiting Post Surgery Support Group: Our post surgery support group meets at [facility]- currently on hold due to covid 19 1. on the first Tuesday of every month from 1:00 PM-2:00 PM Nutrition and Activity apps- Baritastic, My Fitness Pal, Lose It, My Plate Internet resources: www.The Ultimate [employer] wwwDecoSnap www.bariatriceating.Wobeek www.DangDang.com.Wobeek/blog [facility] facebook page: https://www.facebook.com/[facility]ric[facility]gery Books & Magazines: - Recipes for Life After Weight Loss Surgery by Suly Cruz - Shrink Yourself by Dr Juan Carlos Carlos - Eating Well - www.[employer] - Cooking Light- www.cookingInaura.Wobeek Anxiety: The Happiness Trap by Efren Richey The Mindfulness and acceptance workbook for anxiety By Jose A Acosta. Mindful eating: What are you Hungry For? By Ricardo Murray The Mindful Diet by Katerine Nelson and the [facility] group. Emotional eating: End Emotional Eating by Tamar Russo Calming the Emotional Storm Jessica Hayes documented in this encounter Progress Notes * Priya Charles APRN - 01/08/2020 1:00 [place] [address] Bariatric Surgery Program: Telephone Encounter. 1. Reason/purpose for phone call: BSP follow up visit 2. The patient voiced an understanding of the reason and intent of the phone call, and provided verbal consent to discuss clinical issues by phone. Additionally, the patient acknowledged that a telephone consultation is a billable encounter, and that the patient or their medical insurance carrier co uld be billed. 3. Date 01/08/20, Time: Call began at: 1:05; call ended at: 2:00. Total time of call: 55 minutes. 4. Summary of conversation, decision making, and plan: see below encounter note for details. Reason for visit: Bariatric Surgery follow up visit Subjective: Jeannie Rico is s/p partitioned, non-divided Genesis en Y gastric bypass on 05/12/[address] Trejo. Feeling ok overall, had some wt gain initially with COVID social isolation, she had stopped exercising an was not paying attention to her diet. She is now back on track and has lost a few pounds,tolerating foods and fluids. Rare nausea associated with protein drink. She has not been taking heriron supplement due to constipation. Interim Health: Reports health has been stable overall, no new medical issues, surgeries or hospitalizations/ED visits since the last visit. No kidney stones or atraumatic fractures. Pt has no bariatric related concerns/complaints today Pt follows with PCP/specialist for disease management and age specific screening. Obesity related medical issues- o Diabetes- Improved, off meds o HTN- stable on 2 meds. o GERD-doing well, no problems or symptoms, on prilosec 20 mg o Hyperlipidemia- controlled on meds o KARINA-not a baseline issue Review of Systems Constitutional: energy level is really good, no c/o restless leg or pica, hair loss Neuro: no c/o paresthesias or memory loss CV: no chest pain or palpitations. Pulm: denies SOB. + smokers cough GI: denies bloating or abdominal pain. occasional nausea, no vomiting, diarrhea. BM tend toward constipation, BM are q 3 + days : no urinary concerns/changes Skin: + redundant skin. no skin fold rashes. Mood: stable, in therapy and on meds. Complications summary: Early unknown Late Question of staple line breakdown by barium swallow in 2010, normal EGD November 2015 Dietary history/ exericse/ activity level: See dietitian note from today's visit for complete dietary evaluation. Health Habits: Tobacco: 2.5 packs/day ETOH: none Patient Active Problem List Diagnosis Code ??? Cervicalgia M54.2 ??? Chronic pain G89.29 ??? Lumbago M54.5 ??? Atherosclerosis of [place] coronary artery of [place] heart without angina pectoris I25.10 ??? Hypertension I10 ??? Smokes cigarettes F17.210 ??? Hypothyroidism E03.9 ??? GERD (gastroesophageal reflux disease) K21.9 ??? Anxiety F41.9 ??? Depression F32.9 ??? Post traumatic stress disorder (PTSD) F43.10 ??? Hidradenitis suppurativa L73.2 ??? Obesity, S/P remote gastric bypass in 1995, prior VBG E66.9 ??? Osteoporosis M81.0 ??? Borderline personality disorder F60.3 ??? Asthma J45.909 ??? Benign essential hypertension I10 ??? Bulimia F50.2 ??? Cerumen impaction H61.20 ??? Chronic obstructive pulmonary disease J44.9 ??? Constipation K59.00 ??? Diabetes mellitus, type II E11.9 ??? Dizziness R42 ??? Hyperlipidemia E78.5 ??? Obstructive sleep apnea (adult) (pediatric) G47.33 ??? Osteoarthrosis M19.90 ??? Seizures R56.9 ??? Suicide attempt T14.91XA ??? Coronary artery disease I25.10 ??? Headache R51 ??? Bipolar disorder F31.9 ??? Low back pain M54.5 ??? Hypothyroidism, acquired E03.9 Medication, Allergies and PSHX: reviewed and updated in edh, no NSAID use. Visit date Wt (lbs) BMI Pre-op 06/08/99 299 51.8 HT: 64 WT 305 on 08/21/99 Post-op %EBW lost Supplement compliance Labwork 08/13/10 248 42.5 30 multi only Hg 11.4 Hct 36.8 ferritin 12 iron 21 sat 6 B12 789 Nl fol. A 27 B1 82 Nl CMP PTH 66 D 11 Prealb 14 07/04/13 236 40.5 37.5 Good. B12 ?dose Iron once a day D 50K 2x wk 04/14: Hg 13.3 Hct 41.3 Nl CMP A1c 6.1 Pending PCP [facility] 10/23/15 238 41.6 36.3 10/15/15: BMP nl, TSH 1.53, TC 121 tg 174 HDL 40 LDL 46 A1c 6.0 11/15/16 228 40 42 Multi QD, no calcium, iron 3x wk D3 2K/day 09/28: WBC 11.4 Hg 14.4 Hct 44.3 11/15: ferritin 36 iron 88 sat 23% B12 1588 PTH 47 D 44 11/15/18 221 38 53 No multi, no calcium or iron due to constipation 09/11: Hg 14 Hct 42.7 CMP nl x ALP 115 11/15: ordered, pending 6/16/[address] Post op wt history: 222 pounds on 02/20/01, 238 pounds on 03/30/02, 242 pounds on 10/04/02, 255 pounds on 10/22/03, 263 pounds on 05/26/05, 222 pounds on 10/11/05 Assessment and Plan: ??? approaching 20 years s/p non-divided Genesis en Y gastric bypass on 05/12/00 with 51 % of excess body weight lost, wt is overall stable. ??? Obesity related co-morbidities are improved/stable overall. o GERD- asymptomatic- discussed tapering Prilosec to every other day x 2 weeks, if no reflux symptoms may trial without Prilosec. Restart if sx. ??? Constipation: suggested miralax daily to twice daily, fiber supplement, and increase activity. Advised to call if she continues to struggle with constipation. ??? Discussed patient's tobacco use: encouraged smoking cessation. Toxic nature of smoking and carcinogenic effects were reviewed. She understands rationale for quitting smoking. Options for quittingwere explored. Encouraged to f/u with PCP or [facility] for additional support. ??? Iron deficient: discussion re: trial of iron three times a week, and reviewed may need to increase miralax to 2x day on the day she takes Iron. Call if having difficulty tolerating iron. ??? Reviewed recommended vitamin/mineral supplements- see RD note for details, will make additionalrecommendations once lab results are available. ??? Will check iron studies, Vit D, PTH, Pre-albumin, will f/u with patient once results are available. RTC in 1 year for next BSP follow up visit, with labs. Call/rtc sooner prn with questions/concerns. Bariatric Program Summary report is availabe for patient's review via e- Priya Charles APRN * Tamar Guerra, RD - 01/08/2020 1:00 PM EDT Bariatric Nutrition Telephone Office Visit Phone call made with Priya Charles APRN SUBJECTIVE: Topics Discussed/Patient Concerns: ?? No exercise, off track with eating ?? 224# now- down 5#. ?? Using Premier Protein powder. [place] milk- feels like she's going to throw- up. Drinks it fast. ?? Works with therapist weekly and nurse case management daily Social History: Has a supportive corrections caseworker.? OBJECTIVE: Type of Surgery:??non-divided RNY gastric bypass on 05/12/00 ?? Weight History: Date WT HT BMI Comments 06/08/99 306 64 51.8 Pre-op weight %EWL 08/13/10 248 30 42.5 ?? 11/11/10 237 37.5 40.7 ?? 07/04/13 236 37.5 40.5 13 Years post-op 10/23/15 238 36.3% 41.6 15.5 years post-op 11/15/16 228# 42.3% ??40.5 16.5 years post-op 11/15/18 221# 53% 38.1 18.5 years post-op 01/08/20 224# 51% 38.4 19.5 years post-op Lambert Body Weight (based on BMI of 25): 146# 30-70% Excess Weight Loss: 194-258#; 50% Excess Weight Loss: 226# ? Vitamin/Mineral Supplements??(reported by patient): probiotics; gets pill packs Recommendations: 1. Restart multivitamin with iron, aim for twice a day. This is a very low dose iron, and should not cause constipation. 2. Continue vitamin D3 2000 units a day. 3. Consider taking a low dose iron a few times a week, such as Perfect Iron which is made by the [employer]. Supplement Type Brand/Form Dosage/Amount Frequency Comments Multivitamin pill 1 daily ?? Calcium ? Vitamin??B12 pill 1,000 mcg weekly ?? Iron None Causes constipation - lower dose iron did not work for her. Vitamin D3 pill 2,000 IU daily ?? Vitamin C pill 1,000 mg daily ?? probiotics ?? Food Allergies/Intolerances:?Lactose intolerant, red meat, sausage, pork chops, lettuce (can tolerate spinach and other leafy greens) ?? 24-Hour??Intake: Uses almond breeze. Premier Protein - powder- 25 g per serving. occ has their bars. Can tolerate deli meats and chicken. Generally no snacking. Eating wrong things and the wrong time Breakfast Protein drink OR oatmeal and toast AM Snack Lunch Protein drink if not at brkfast OR lunchable - ham and cheese, green salad PM Snack Dinner Chicken drumstick, spinach and applesauce HS Snack Protein- grams/day: 40-50 g Hydrating fluids - oz/day: 8-16 oz. Bottles water Soda: None. ETOH: None. Caffeine: None. Other: ?? Vomiting/ regurgitation: none ?? Nausea: Only when drinking protein drinks ?? Constipation/diarrhea: + constipation due inactivity and not eating as well. Using a suppositoryor laxative pills. Exercise: just restarted walking. Prior to was doing some yoga on her bed. ASSESSMENT: Jeannie is coming up on 20 years s/p RNYGB. Her weight has been fairly stable x 3 years. She notes she got a little off track when COVID first hit and was not eating well. She got back on track about 2weeks ago. She restarted her protein drink and is trying to push fluids. Reviewed vitamin and mineral supplements. She was a little confused about whether or not she was taking calcium and/or vitaminD. She just restarted walking. PLAN: ?? Provided support/encouragement and reinforced importance of meeting nutritional goals. - Continue to focus on protein first at all meals. On days you have oatmeal at breakfast you may need to have a protein drink as a snack to aid in meeting protein needs. - OK to decrease your water intake to 4-5 16 oz bottles water daily. - Consider slowing down the speed of drinking your protein drink to see if it's better tolerated. Also make sure your almond milk does not have added sugar in it. Reviewed nutrition and vitamin and mineral supplement recommendations. Please send us a photo of your supplements and prescription medications you are taking. ??? Multivitamins with minerals daily- Increase to 2 pills daily ??? Vitamin B12 1000 mcg by mouth once daily ??? Calcium citrate 600 mg with Vitamin D 400 units twice daily (2 pills twice a day) ??? Iron with Vitamin C, 50-66 mg three times weekly (take iron with vitamin C 250 mg to help with absorption) ??? Vitamin D 2000 IU daily or as recommended documented in this encounter Plan of Treatment Not on file documented as of this encounter Results * Vitamin D, 25-Hydroxy (01/18/2020 12:56 PM EDT) 25-OH Vit D Total 38 21 - 100 ng/mL [facility] Comment: Please note, effective November 28, 2019, additional result field for Vitamin D Interpretation, and updated flagging notification. 25-OH Vit D Interp Sufficient [facility] Blood specimen (specimen) 01/18/2020 12:56 PM EDT 01/18/2020 4:52 PM EDT Narrative Resulting Agency Comment Spec In Lab / APD Priya Charles APRN CHEMISTRY ORDERA BLES Performing Organization Address City/[facility]/ZIP Co de Phone Number [facility] [place] [address] * PTH (01/18/2020 12:56 PM EDT) PTH 54 15 - 65 pg/mL [facility] Blood specimen (specimen) 01/18/2020 12:56 PM EDT 01/18/2020 4:52 PM EDT Narrative Resulting Agency Comment Spec In Lab / APD Priya Charles APRN CHEMISTRY ORDERA BLES Performing Organization Address [facility]/ZIP Co de Phone Number [facility] [place] [address] * (ABNORMAL) Iron and TIBC (01/18/2020 12:56 PM EDT) Iron 44 30 - 150 mcg/dL [facility] TIBC 397 250 - 450 mcg/dL [facility] Iron Saturation 11(L) 20 - 50 % [facility] Blood specimen (specimen) 01/18/2020 12:56 PM EDT 01/18/2020 1:45 PM EDT Narrative Resulting Agency Comment Spec In Lab / APD Priya Charles APRN CHEMISTRY ORDERA BLES Performing Organization Address [facility] de Phone Number [facility] [address] [place] [address] * (ABNORMAL) Ferritin (01/18/2020 12:56 PM EDT) Ferritin 16(L) 30 - 400 ng/mL [facility] Comment: Pediatric reference ranges not verified at [facility], interpret with caution. Reference ranges for females greater than 50 years of age approach values for men, i.e., 30-400 ng/mL. Blood specimen (specimen) 01/18/2020 12:56 PM EDT 01/18/2020 1:45 PM EDT Narrative Resulting Agency Comment Spec In Lab / APD Priya Charles APRN CHEMISTRY ORDERA BLES Performing Organization Address [facility] de Phone Number [facility] [address] [place] [phone] * (ABNORMAL) Prealbumin (01/18/2020 12:56 PM EDT) Prealbumin 18(L) 20 - 40 mg/dL [facility] Comment: Prealbumin levels are generally lower in the pediatric population; adult concentrations are usually attained near puberty. Blood specimen (specimen) 01/18/2020 12:56 PM EDT 01/18/2020 4:52 PM EDT Narrative Resulting Agency Comment Spec In Lab / APD Priya Charles APRN CHEMISTRY ORDERA BLES Performing Organization Address [facility] Co de Phone Number [facility] [place] [place] [address] documented in this encounter Visit Diagnoses Diagnosis Essential hypertension Unspecified essential hypertension Smokes cigarettes Tobacco use disorder Gastroesophageal reflux disease, esophagitis presence not specified Obesity, unspecified classification, unspecified obesity type, unspecified whether serious comorbidity present Benign essential hypertension Essential hypertension, benign Constipation, unspecified constipation type Type 2 diabetes mellitus without complication, without long-term current use of insulin Hyperlipidemia, unspecified hyperlipidemia type Obstructive sleep apnea (adult) (pediatric) Disorder of iron metabolism Other disorders of iron metabolism Post-resection malabsorption Other and unspecified postsurgical nonabsorption documented in this encounter Care Teams Administration Dean Relationship Specialty Start Date End Date Hoang Castellanos, SCREEN PRINTING MACHINE OPERATOR [address] [place] [address] PCP - General Family Medicine 12/07/19 03/11/20 documented as of this encounter
--- OUTSIDE RECORDS SUMMARY | 2024-02-22 00:53 | XMS_ITS | Encounter Summary ---
[place] [address] Care Team Providers Care Hand Outside Cutter Name Role Phone Hoang Castellanos APRN Primary Care Provider Encounter Details Date Type Department Care Team (Late st Contact Info) Description 12/28/2019 Telephone Primary Care at [facility] [address] [facility] [place] [id number] Isadora Hidalgo LPN Social History Tobacco Use [...] Telephone Encounter - Isadora Hidalgo LPN - 12/28/2019 1:56 PM EDT Spoke with Jeannie and she will go to the lab next week either tue, or . * Telephone Encounter - Isadora Hidalgo LPN - 12/28/2019 1:55 PM EDT ----- Message from Hoang Castellanos APRN sent at 12/28/2019 12:21 PM EDT ----- Please apologize for me and inform pt that we need 1 more tube of blood. Thanks ----- Message ----- From: Isadora Hidalgo LPN Sent: 12/28/2019 11:29 AM EDT To: Hoang Castellanos APRN Spoke with the lab she needs to have her blood done again the tube they use was green tube and is not for A1C isadora ----- Message ----- From: Hoang Castellanos APRN Sent: 12/27/2019 2:11 PM EDT To: [facility] Primary Care Nurse Can we please see if we can add on A1c-I didn't realized the previous order on 12/22. documented in this encounter Plan of Treatment Not on file documented as of this encounter Visit Diagnoses Not on filedocumented in this encounter Care Teams Hand Outside Cutter Relationship Specialty Start Date End Date Hoang Castellanos APRN [address] [place] [address] PCP - General Family Medicine 12/07/19 03/11/20 documented as of this encounter
--- OUTSIDE RECORDS SUMMARY | 2024-02-22 00:53 | XMS_ITS | Encounter Summary ---
Author Organization [facility] [place] [address] Care Team Providers Care Web Content & Social Media Manager Name Role Phone Yisel Marroquin MD Primary Care Provider [phone] Encounter Details Date Type Department Care Team (Late st Contact Info) Description 07/24/2019 Telephone Primary Care at [facility] [address] [place] [phone] Meli Jaimes RN Social History Tobacco Use Types Packs/Day Years Used Date Smoking Tobacco: Every Day Cigarettes 1 45 Smokeless Tobacco: Never Alcohol Use Standard Drinks/Week Comments No 0 (1 standard drink = 0.6 oz pur e alcohol) Sex and Gender Information Value Date Recorded Sex Assigned at Not on file Gender Identity Not on file Sexual Orientation Not on file documented as of this encounter Miscellaneous Notes * Telephone Encounter - Yisel Marroquin MD - 07/24/2019 1:58 PM EST Yes, change to incruse, one inhalation daily * Telephone Encounter - Meli Velez RN - 07/24/2019 9:43 AM EST Fax received from [facility] stating that the Spiriva is not on her formulary. They are asking for the prescription to be changed to incruse ellipta. Ok to switch? documented in this encounter Plan of Treatment Not on file documented as of this encounter Visit Diagnoses Not on filedocumented in this encounter Care Teams Web Content & Social Media Manager Relationship Specialty Start Date End Date Yisel Marroquin MD [address] [place] [address] PCP - General General Internal Medicine 03/06/1911/22 documented as of this encounter
--- OUTSIDE RECORDS SUMMARY | 2024-02-22 00:53 | XMS_ITS | Encounter Summary ---
Author Organization [facility] [place] [address] Care Team Providers Care Informatics Application Analyst Name Role Phone Hoang Castellanos APRN Primary Care Provider [phone] Reason for Visit * Reason Comments Medication Refill Encounter Details Date Type Department Care Team (Late st Contact Info) Description 01/21/2020 Refill Primary [facility] at [facility] [place] [address] [place] [phone] Yisel Marroquin MD 10 [facility] [place] [address] Social History Tobacco Use Types Packs/Day Years [...] encounter Miscellaneous Notes * Telephone Encounter - Meli Velez RN - 01/21/2020 3:44 PM EDT Last Related Office Visit: 12/26/2019 Upcoming Appointment: 03/24/2020 Last Prescription Fill Date: 06/12/2018 Number Dispensed and Refills: #112, 5 refills Lab Results Component Value Date HGB 13.9 [...] on filedocumented in this encounter Care Teams Informatics Application Analyst Relationship Specialty Start Date End Date Hoang Castellanos APRN [address] [place] [address] PCP - General Family Medicine 12/07/19 03/11/20 documented as of this encounter
--- OUTSIDE RECORDS SUMMARY | 2024-02-22 00:53 | XMS_ITS | Encounter Summary ---
Author Organization [facility] [place] [address] Care Team Providers Care Rn Ent Name Role Phone Yisel Marroquin MD Primary Care Provider [phone] Reason for Visit * Reason Comments Medication Refill Encounter Details Date Type Department Care Team (Late st Contact Info) Description 06/29/2019 Refill Primary Care at [facility] 10 [place] [phone] Ananth Wilson MD 10 [facility] [place] [address] Social History Tobacco Use Types Packs/Day Years [...] Telephone Encounter - Alva Castellanos LPN - 06/29/2019 9:42 AM EST Last Prescription Fill Date: 01/29/2019 Number Dispensed and Refills: 60/3 Last Related Office Visit: 05/04/2019 Upcoming Appointment: 08/06/2019 No flowsheet data found. Lab Results Component Value Date HGB 14.0 09/11/2018 HCT 42.7 09/11/2018 CHLPL 134 (External Lab) 01/04/2018 TRIG 154 (ExtH) 01/04/2018 HDL 40 (External Lab) 01/04/2018 LDLCHOL 63 (External Lab) 01/04/2018 ALT 7 09/11/2018 AST 13 09/11/2018 NA 141 09/11/2018 K 4.1 09/11/2018 CL 101 09/11/2018 CREATININE 0.83 09/11/2018 TSH 2.125 (External Lab) 01/04/2018 INR 1.0 04/16/2013 HA1C 5.9 (H) 02/07/2019 documented in this encounter Plan of Treatment Not on file documented as of this encounter Visit Diagnoses Not on filedocumented in this encounter Care Teams Rn Ent Relationship Specialty Start Date End Date Yisel Marroquin MD [address] [place] [address] PCP - General General Internal Medicine 03/06/1911/22 documented as of this encounter
--- OUTSIDE RECORDS SUMMARY | 2024-02-22 00:53 | XMS_ITS | Encounter Summary ---
Author Organization [facility] [place] [address] Care Team Providers Care Ct Tech Name Role Phone Yisel Marroquin MD Primary Care Provider Reason for Visit * Reason Comments Medication Refill Encounter Details Date Type Department Care Team (Late st Contact Info) Description 11/20/2019 Refill Primary Care at [facility] 10 [facility] [place] [phone] Ananth Wilson MD 10 [facility] [place] [address] Social History Tobacco Use Types Packs/Day Years [...] Telephone Encounter - Alva Castellanos LPN - 11/21/2019 8:04 AM EDT Last Prescription Fill Date: 06/29/2019 Number Dispensed and Refills: 60/3 Last Related Office Visit: 09/24/2019 Upcoming Appointment: 12/26/2019 No flowsheet data found. Lab Results Component [...] on filedocumented in this encounter Care Teams Ct Tech Relationship Specialty Start Date End Date Yisel Marroquin MD 10 [facility] [place] [address] PCP - General General Internal Medicine 03/06/1911/22 documented as of this encounter
--- OUTSIDE RECORDS SUMMARY | 2024-02-22 00:53 | XMS_ITS | Encounter Summary ---
Author Organization [place] [address] Care Team Providers Care Net Fisher Name Role Phone Yisel Marroquin MD Primary Care Provider [phone] Reason for Visit * Reason Comments Medication Refill Encounter Details Date Type Department Care Team (Late st Contact Info) Description 06/15/2019 [facility] [place] [phone] Yisel Marroquin MD 10 [place] [address] Social History Tobacco Use Types Packs/Day Years [...] encounter Miscellaneous Notes * Telephone Encounter - Sabine Yee RMA - 06/18/2019 12:47 PM EST Last Prescription Fill Date: 06/01/19 Number Dispensed and Refills: 90/0 Last Related Office Visit: 05/04/19 Upcoming Appointment: 08/06/2019 No flowsheet data found. [...] on filedocumented in this encounter Care Teams Net Fisher Relationship Specialty Start Date End Date Yisel Marroquin MD 10 [place] [address] PCP - General General Internal Medicine 03/06/1911/22 documented as of this encounter
--- OUTSIDE RECORDS SUMMARY | 2024-02-22 00:53 | XMS_ITS | Encounter Summary ---
Author Organization [facility] [place] [address] Care Team Providers Care Skiver Operator Name Role Phone Yisel Marroquin MD Primary Care Provider [phone] Reason for Visit * Reason Onset Date Comments Medication Refill 05/18/2019 Encounter Details Date Type Department Care Team (Late st Contact Info) Description 05/18/2019 Refill Primary Care at [employer] [place] [address] [place] [phone] Yisel Marroquin MD 10 [place] [address] Social History Tobacco Use Types Packs/Day Years [...] encounter Miscellaneous Notes * Telephone Encounter - Brunilda Cabrales LPN - 05/18/2019 11:23 AM EDT Last Prescription Fill Date: 06/12/2018 Number Dispensed and Refills: #18/11 Last Related Office Visit: 05/04/2019 Upcoming Appointment: [...] on filedocumented in this encounter Care Teams Skiver Operator Relationship Specialty Start Date End Date Yisel [place] [address] PCP - General General Internal Medicine 03/06/1911/22 documented as of this encounter
--- OUTSIDE RECORDS SUMMARY | 2024-02-22 00:53 | XMS_ITS | Encounter Summary ---
Author Organization [facility] [place] [address] Care Team Providers Care Estate Attorney Name Role Phone Yisel Marroquin MD Primary Care Provider [phone] Reason for Visit * Reason Comments Medication Refill Encounter Details Date Type Department Care Team (Late st Contact Info) Description 11/26/2019 Refill Primary Care at [employer] [place] [address] [place] [phone] Yisel Marroquin MD [address] [place] [address] Social History Tobacco Use Types Packs/Day Years [...] encounter Miscellaneous Notes * Telephone Encounter - Lis Rossi CMA - 11/27/2019 9:09 AM EDT PRAZOSIN HCI 2 MG: Last Prescription Fill Date: 11/04/2019 Number Dispensed and Refills: 84/11 Last Related Office Visit: 09/24/2019 Upcoming Appointment: [...] INR 1.0 04/16/2013 HA1C 5.9 (H) 02/07/2019 * Telephone Encounter - Meena Galloway CCMA - 11/26/2019 5:06 PM EDT Prazosin 2 mg Last Prescription Fill Date: 06/18/2019 Number Dispensed and Refills: 90/5 Last Related Office Visit: 09/24/2019 Upcoming Appointment: [...] on filedocumented in this encounter Care Teams Estate Attorney Relationship Specialty Start Date End Date Yisel Marroquin MD [address] [place] [address] PCP - General General Internal Medicine 03/06/1911/22 documented as of this encounter
--- OUTSIDE RECORDS SUMMARY | 2024-02-22 00:53 | XMS_ITS | Encounter Summary ---
Author Organization [facility] [place] [address] Care Team Providers Care Basketball Commentator Name Role Phone Mark Holguin APRN Primary Care Provider [phone] Encounter Details Date Type Department Care Team (Late st Contact Info) Description 01/01/2020 Orders Only Primary Care at [facility] 10 [facility] [place] [address] Mark Holguin APRN [address] [place] [address] Essential hypertension; Hypothyroidism, acquired; Type 2 diabetes mellitus without [...] Addendum Note - Mark Holguin APRN - 01/01/2020 8:31 AM EDTAddended by: MARK HOLGUIN on: 01/01/2020 09:53 AM Modules accepted: Orders documented in this encounter Plan of Treatment Not on file documented as of this encounter Results * TSH (01/01/2020 8:33 AM EDT) TSH 1.53 0.27 - 4.20 mcIU/mL LABORATORY Blood specimen (specimen) 01/01/2020 8:33 AM EDT 01/01/2020 11:13 AM EDT Narrative Resulting Agency Comment Spec In Lab / APD Mark Holguin STITCHING MACHINE SETTER CHEMISTRY ORDERABLES LABORATORY [address] [place] [address] * (ABNORMAL) Comprehensive metabolic panel (non-fasting) (01/01/2020 8:33 AM EDT) Glucose Lvl 105 65 - 199 mg/dL LABORATORY Comment:Diabetes: >=200 mg/d L plus symptoms BUN 14 8 - 18 mg/dL LABORATORY Creatinine 0.90 0.70 - 1.20 mg/dL LABORATORY Sodium 136 135 - 145 mmol/L LABORATORY Potassium 4.7 3.5 - 5.0 mmol/L LABORATORY Comment: Please note: ??Patients with WBC >100,000 may have falsely elevated Potassium levels. ??For accurate Potassium quantification in these patients send serum separator tube (gold top) for subsequent determinations. ??Contact the Clinical Chemistry Laboratory if there are any questions. Chloride 97(L) 98 - 107 mmol/L LABORATORY CO2 28 22 - 31 mmol/L LABORATORY Anion Gap 11 5 - 15 mmol/L LABORATORY Calcium 9.6 8.5 - 10.5 mg/dL LABORATORY Total Protein 7.1 6.1 - 8.0 gm/dL LABORATORY Albumin 4.0 3.2 - 5.2 gm/dL LABORATORY AST 14 0 - 30 unit/L LABORATORY ALT 8 0 - 30 unit/L LABORATORY Alk Phos 111(H) 35 - 105 unit/L LABORATORY Total Bilirubin 0.3 0.2 - 1.3 mg/dL LABORATORY Estimated GFR 70 >=60 mL/min/1. 73 m?? LABORATORY Comment: The eGFR was calculated using the CKD-EPI equation. As with all creatinine based estimates of kidney function, eGFR values calculated with the CKD-EPI equation are not accurate in patients with acute kidney failure, extremes of body mass or the acutely ill. http://NumberFour/[facility] eGFR 81 >=60 mL/min/1. 73 m?? LABORATORY Comment: The eGFR was calculated using the CKD-EPI equation. As with all creatinine based estimates of kidney function, eGFR values calculated with the CKD-EPI equation are not accurate in patients with acute kidney failure, extremes of body mass or the acutely ill. http://NumberFour/[facility] Blood specimen (specimen) 01/01/2020 8:33 AM EDT 01/01/2020 11:13 AM EDT Narrative Resulting Agency Comment Spec In Lab / APD Mark Holguin APRN CHEMISTRY ORDERABLES Performing Organization Address City/[facility]/ZIP Co de Phone Number LABORATORY [address] [place] [address] * (ABNORMAL) Hemoglobin A1c (01/01/2020 8:33 AM EDT) Hemoglobin A1C 6.0(H) 4.3 - 5.6 % LABORATORY Est Avg Gluc 126 mg/dL [facility] Blood specimen (specimen) 01/01/2020 8:33 AM EDT 01/01/2020 11:11 AM EDT Narrative Resulting Agency Comment Spec In Lab / APD Mark Holguin APRN CHEMISTRY ORDERABLES Performing Organization Address City/[facility] Co de Phone Number [facility] 10 [place] [address] documented in this encounter Visit Diagnoses Diagnosis Essential hypertension Unspecified essential hypertension Hypothyroidism, acquired Unspecified hypothyroidism Type 2 diabetes mellitus without complication, without long-term current use of insulin documented in this encounter Care Teams Basketball Commentator Relationship Specialty Start Date End Date Mark Holguin, STITCHING MACHINE SETTER [address] [place] [address] PCP - General Family Medicine 12/07/19 03/11/20 documented as of this encounter
--- OUTSIDE RECORDS SUMMARY | 2024-02-22 00:53 | XMS_ITS | Encounter Summary ---
[place] [address] Care Team Providers Care Outbound Sales Executive Name Role Phone Hoang Castellanos APRN Primary Care Provider Encounter Details Date Type Department Care Team (Late st Contact Info) Description 01/18/2020 Orders [place] [address] Priya Charles APRN [facility] [place] [address] Iron deficiency Social History Tobacco Use Types Packs/Day [...] as of this encounter Visit Diagnoses Diagnosis Iron deficiency Iron deficiency anemia, unspecified documented in this encounter Care Teams Outbound Sales Executive Relationship Specialty Start Date End Date Hoang Castellanos APRN [address] [place] [address] PCP - General Family Medicine 12/07/19 03/11/20 documented as of this encounter
--- OUTSIDE RECORDS SUMMARY | 2024-02-22 00:53 | XMS_ITS | Encounter Summary ---
Author Organization [facility] Address [facility] [address] Care Team Providers Care Corporate Trust Officer Name Role Phone Hoang Castellanos APRN Primary Care Provider Encounter Details Date Type Department Care Team (Latest Contact Info) Description 12/27/2019 7:25 AM EDT Laboratory Appointment Laboratory at [facility] [place] [phone] Hyperlipidemia, unspecified hyperlipidemia type; Dizzinesses; Vision changes Social History Tobacco Use Types Packs/Day Years [...] Name Priority Date/Time Associated Diagnosis Comments HC MAGNESIUM, SERUM Routine 12/27/2019 7 :27 AM EDT Dizzinesses Vision changes HC VENIPUNCTURE Routine 12/27/2019 7:27 AM EDT Hyperlipidemia, unspecified hyperlipidemia type documented in this encounter Results * Magnesium (12/27/2019 7:27 AM EDT) Magnesium 0.80 0.69 - 1.07 mmol/L [facility] Blood specimen (specimen) 12/27/2019 7:27 AM EDT 12/27/2019 8:44 AM EDT Narrative Resulting Agency Comment Spec In Lab / APD Yisel Marroquin MD CHEMISTRY ORDERABLES LABORATORY [address] [place] [address] * Lipid Panel (Reflex Direct LDL) (12/27/2019 7:27 AM EDT) Chol, Total 114 mg/dL [facility] Comment: Lower Risk: <200 mg/dL Average Risk: 200-239 mg/dL Higher Risk: >rw=482 mg/dL Triglycerides 102 mg/dL LABORATORY Comment: Average Risk/Lower Risk: <150 mg/dL Borderline High Risk: 150-199 mg/dL High Risk: 200-499 mg/dL Very High Risk: >fg=475 mg/dL HDL 38 mg/dL LABORATORY Comment: Males: ?? Higher Risk: <40 mg/dL Females: ?? HIgher Risk: <50 mg/dL LDL Cholesterol 56 mg/dL [facility] Comment: Lowest Risk: <100 mg/dL Lower Risk: 100-129 mg/dL Borderline High Risk: 130-159 mg/dL High Risk: 160-189 mg/dL Very High Risk: >qx=188 mg/dL Chol/HDL Ratio 3.0 ratio LABORATORY Lipid Interpretation See Note LABORATORY Comment: Lipid management should be guided by a patient? s ASCVD risk, goals and preferences. ACC/AHA Guidelines recommend high intensity statin if clinical ASCVD or LDL greater than or equal to 190 mg/dL. http://tinyurl.com/GJU-LKI-Xlroduphm Adults aged 40-75 with LDL 70-189 mg/dL should have their 10 year ASCVD risk estimated with the ACC/AHA ASCVD risk resolution expert http://tools.acc.org/USKHF-Ezaa-Pwtwewxiq/ Statin should be discussed if risk greater [...] critical component of ASCVD risk reduction. Blood specimen (specimen) 12/27/2019 7:27 AM EDT 12/27/2019 8:44 AM EDT Narrative Resulting Agency Comment Spec In Lab / APD Yisel Marroquin MD CHEMISTRY ORDERABLES [facility] [address] [place] [address] documented in this encounter Visit Diagnoses Diagnosis Hyperlipidemia, unspecified hyperlipidemia type Dizzinesses Vision changes Unspecified visual disturbance documented in this encounter Care Teams Corporate Trust Officer Relationship Specialty Start Date End Date Hoang Castellanos APRN [address] [place] [address] PCP - General Family Medicine 12/07/19 03/11/20 documented as of this encounter
--- OUTSIDE RECORDS SUMMARY | 2024-02-22 00:53 | XMS_ITS | Encounter Summary ---
Author Organization [facility] [place] [address] Care Team Providers Care Sulfuric Acid Plant Supervisor Name Role Phone Hoang Castellanos APRN Primary Care Provider Reason for Visit * Reason Comments Follow Up Fracture RIGHT distal radius intra-articular fracture 02/04/20 Encounter Details Date Type Department Care Team (Late st Contact Info) Description 02/05/2020 1:00 PM EDT Office Visit Orthopaedics at [facility] [place] [address] Closed fracture of distal end of right radius, unspecified fracture morphology, initial encounter Social History Tobacco Use Types [...] this encounter Patient Instructions * Patient Instructions* Irasema Lou RN - 02/05/2020 1:00 PM EDT Images from the original [...] documented in this encounter Progress Notes * Irasema Lou RN - 02/05/2020 1:00 PM EDT APD Clinic Follow up Note History of Present Illness or Injury: Jeannie Rico is an 59 y.o. year old female, RIGHT hand dominant at the request of Hoang Castellanos APRN for treatment and evaluation of RIGHT distal radius fracture DOI: 02/04/20 for a sugar tongue splint application. Patient reports pain, at its worst is a 6 on a scale of 0-10; describing it as generalized throbbing/achiness. Patient also reports she has iced and elevated throughout last night and is currently wearing an otc splint. Jeannie Rico presents to the cast room for a sugar tongue splint on per Hoang Castellanos APRN . Thepatient's skin is intact. The patient is going into a well padded fiberglass sugar tongue splint onthe right side. The patient tolerated the procedure well. The patient was given instructions for splint care and was given instruction to call the clinic with any questions or concerns. Patient is referred to Dr. Hernandez for further consultation per Hoang Castellanos APRN. Review of Systems Musculoskeletal: Admits RIGHT wrist pain All other systems reviewed and are negative. [...] by mouth daily. 90 tablet 3 ??? Acidophilus Capsule TAKE TWO (2) CAPSULES [...] for 30 min. 52 tablet 0 ??? traZODone (DESYREL) 150 mg Tablet Take 75 mg by mouth nightly. ??? [DISCONTINUED] lidocaine (LIDODERM) 5 % Adhesive Patch, Medicated Place 1 patch onto affected area for 12 hours then remove for 12 hours 30 patch 5 ??? [DISCONTINUED] lisinopriL (Prinivil;Zestril) 5 mg Tablet [...] tablets by mouth daily. 135 tablet 3 ??? MARIJUANA ORAL Take by mouth. No current facility-administered medications on file prior to visit. Visit Vitals LMP (LMP Unknown) documented in this encounter Plan of Treatment Not on file documented as of this encounter Visit Diagnoses Diagnosis Closed fracture of distal end of right radius, unspecified fracture morphology, initial encounter documented in this encounter Care Teams Sulfuric Acid Plant Supervisor Relationship Specialty Start Date End Date Hoang Castellanos, TANK FARM ATTENDANT [address] [place] [address] PCP - General Family Medicine 12/07/19 03/11/20 documented as of this encounter
--- OUTSIDE RECORDS SUMMARY | 2024-02-22 00:53 | XMS_ITS | Encounter Summary ---
[place] [address] Care Team Providers Care Technology Applications Teacher Name Role Phone Yisel Marroquin MD Primary Care Provider [phone] Encounter Details Date Type Department Care Team (Late st Contact Info) Description 08/23/2019 Orders Only Primary Care at [facility] [place] [address] [place] [phone] Meli Jaimes RN Social History Tobacco Use [...] on filedocumented in this encounter Care Teams Technology Applications Teacher Relationship Specialty Start Date End Date Yisel Marroquin MD [address] [place] [address] PCP - General General Internal Medicine 03/06/1911/22 documented as of this encounter
--- OUTSIDE RECORDS SUMMARY | 2024-02-22 00:53 | XMS_ITS | Encounter Summary ---
Author Organization [facility] [address] Care Team Providers Care Lockstitch Waistband Setter Name Role Phone Hoang Castellanos APRN Primary Care Provider Reason for Visit * Reason Onset Date Comments Medication Refill Medication Refill 12/28/2019 Encounter Details Date Type Department Care Team (Late st Contact Info) Description 12/24/2019 Refill Primary Care at [employer] [address] [place] [phone] Yisel Marroquin MD 10 [place] [address] CAD (coronary artery disease) Social History Tobacco Use Types Packs/Day Years Used Date Smoking Tobacco: Every Day Cigarettes 0.5 45 Smokeless Tobacco: Never Alcohol Use Standard Drinks/Week Comments No 0 (1 standard drink = 0.6 oz pur e alcohol) Overall Financial Resource Strain (CARDIA) Answe r [...] encounter Miscellaneous Notes * Telephone Encounter - Payal Ace, [facility] - 12/24/2019 4:24 PM EDT Medication name: simvastatin Last Prescription Fill Date: 01/04/19 Number Dispensed and Refills: #90 3 ref Last Related Office Visit: 09/24/19 Upcoming Appointment: 12/26/2019 No flowsheet data found. [...] as of this encounter Visit Diagnoses Diagnosis CAD (coronary artery disease) Coronary atherosclerosis of unspecified type of vessel, [place] or graft documented in this encounter Additional Health Concerns Infection Onset Date Last Indicated Resolved Time Rule Out COVID-19 04/03/2020 04/03/2020 04/03/2020 11:21 AM EDT Rule Out COVID-19 07/03/2020 07/03/2020 07/03/2020 4:30 PM EST documented as of this encounter Care Teams Lockstitch Waistband Setter Relationship Specialty Start Date End Date Hoang Castellanos, SAM [address] [place] [address] PCP - General Family Medicine 03/12/20 documented as of this encounter
--- OUTSIDE RECORDS SUMMARY | 2024-02-22 00:53 | XMS_ITS | Encounter Summary ---
Author Organization [facility] 1928[facility] [place] [address] Care Team Providers Care Operating Room Rn Name Role Phone Yisel Marroquin MD Primary Care Provider [phone] Reason for Visit * Reason Comments Medication Refill Encounter Details Date Type Department Care Team (Late st Contact Info) Description 11/08/2019 Refill Primary Care at [facility] [address] [place] [phone] Yisel Marroquin MD 10 [place] [address] Social History Tobacco Use Types Packs/Day Years [...] Notes * [facility] - [facility]08/[facility] 2:04 PM EDT Incruse Ellipta 62.5 mcg Last Prescription Fill Date: 07/24/2019 Number Dispensed and Refills: 07/27 Last Related Office Visit: 09/24/2019 Upcoming Appointment: [...] on filedocumented in this encounter Care Teams Operating Room Rn Relationship Specialty Start Date End Date Yisel Marroquin MD [address] [place] [address] PCP - General General Internal Medicine 03/06/1911/22 documented as of this encounter
--- OUTSIDE RECORDS SUMMARY | 2024-02-22 00:53 | XMS_ITS | Encounter Summary ---
Author Organization [place] [address] Care Team Providers Care Activities Concierge Name Role Phone Yisel Marroquin MD Primary Care Provider [phone] Encounter Details Date Type Department Care Team (Late st Contact Info) Description 09/24/2019 Telephone Primary Care at [facility] [address] [facility] [place] [phone] Meli Jaimes RN Social History Tobacco Use [...] Telephone Encounter - Meli Velez RN - 09/25/2019 9:22 AM EST Called and spoke with Jeannie. She confirmed that she has been taking Asprin 81mg. I made her aware that it interacts with the meloxicam and you do not want her taking it while taking the meloxicam. She has agreed to stop the Asprin at this time. I notified that pharmacy that you are aware of the interactions and that I have spoken with the patient so it is fine for them to go ahead and fill it at this time. * Telephone Encounter - Yisel Marroquin MD - 09/25/2019 8:32 AM EST I was not aware she was taking ASA, can you call her and let her know we want her to only take thatif she does not take the meloxicam on any given day. Then let the pharmacy know we have discuss that with her and the others we know the risk and I already discusses the risk yesterday with the patient. She is aware to call with any changes in status or side effects. She has taken NSAIDS before on this program and has tolerated it. -EM * Telephone Encounter - Meli Velez RN - 09/24/2019 4:40 PM EST Message received from Patel with [facility]. He is calling because the patient's prescriptionfor meloxicam interacts with her aspirin, lisinopril, sertraline and plavix. They need to confirm that you are aware of this and okay with the possible interactions. documented in this encounter Plan of Treatment Not on file documented as of this encounter Visit Diagnoses Not on filedocumented in this encounter Care Teams Activities Concierge Relationship Specialty Start Date End Date Yisel Marroquin MD [address] [place] [address] PCP - General General Internal Medicine 03/06/1911/22 documented as of this encounter
--- OUTSIDE RECORDS SUMMARY | 2024-02-22 00:53 | XMS_ITS | Encounter Summary ---
[place] [address] Care Team Providers Care Silk Screen Frame Assembler Name Role Phone Yisel Marroquin MD Primary Care Provider [phone] Reason for Visit * Reason Onset Date Comments Medication Refill 06/04/2019 Encounter Details Date Type Department Care Team (Late st Contact Info) Description 06/04/2019 Refill Primary Care at [facility] [email or web address] [phone] Yisel Marroquin MD [address] [place] [address] Gastroesophageal reflux disease, esophagitis presence not specified; Asthma with acute exacerbation, unspecified asthma severity, [...] Miscellaneous Notes * Addendum Note - Shannon Chung, RN - 06/04/2019 10:12 AM ESTAddended by: SHANNON CHUNG on: 06/04/2019 10:12 AM Modules accepted: Orders * Telephone Encounter - Shannon Chung RN - 06/04/2019 10:04 AM EST PCP: Yisel Marroquin MD Medication: spirivia Last Appt: 05/04/2019 Future Appt: 08/06/2019 Comments: rx was sent on 06/01/19. Pharmacy: [facility] * Telephone Encounter - Shannon Chung RN - 06/04/2019 9:29 AM EST PCP: Yisel Marroquin MD Medication: omeprazole 20mg BID Last Appt: 05/04/2019 Future Appt: 08/06/2019 Comments: pharmacy called stating that they are missing rx for omeprazole. Need 28 worth of rx. Last prescribed 10/19/18 1 year worth. Rest of rx sent Pharmacy: [facility] documented in this encounter Plan of Treatment Not on file documented as of this encounter Visit Diagnoses Diagnosis Gastroesophageal reflux disease, esophagitis presence not specified Asthma with acute exacerbation, unspecified asthma severity, unspecified whether persistent documented in this encounter Care Teams Silk Screen Frame Assembler Relationship Specialty Start Date End Date Yisel Marroquin MD [address] [id number] PCP - General General Internal Medicine 03/06/1911/22 documented as of this encounter
--- OUTSIDE RECORDS SUMMARY | 2024-02-22 00:53 | XMS_ITS | Encounter Summary ---
Author Organization [facility] [place] [address] Care Team Providers Care Storage Wharfage Clerk Name Role Phone Hoang Castellanos APRN Primary Care Provider Encounter Details Date Type Department Care Team (Latest Contact Info) Description 01/18/2020 12:45 PM EDT Laboratory Appointment Laboratory at [facility] [place] [phone] Obesity, unspecified classification, unspecified obesity type, unspecified whether serious comorbidity present; Post-resection malabsorption; Disorder of iron metabolism Social History Tobacco Use Types Packs/Day Years [...] Diagnosis Comments HC PARATHYROID HORMONE(PTH INTACT Routine 01/18/2020 12:56 PM EDT Obesity, unspecified classification, unspecified obesity type, unspecified whether serious comorbidity present Post-resection malabsorption HC IRON BINDING CAPACITY Routine 01/18/2020 12:56 PM EDT Obesity, unspecified classification, unspecified obesity type, unspecified whether serious comorbidity present Disorder of iron metabolism Post-resection malabsorption HC VENIPUNCTURE Routine 01/18/2020 12:56 PM EDT Obesity, unspecified classification, unspecified obesity type, unspecified whether serious comorbidity present Post-resection malabsorption HC PREALBUMIN, SERUM Routine 01/18/2020 12:56 PM EDT Obesity, unspecified classification, unspecified obesity type, unspecified whether serious comorbidity present Post-resection malabsorption HC FERRITIN, SERUM Routine 01/18/2020 12 :56 PM EDT Obesity, unspecified classification, unspecified obesity type, unspecified whether serious comorbidity present Disorder of iron metabolism Post-resection malabsorption documented in this encounter Results * (ABNORMAL) Prealbumin (01/18/2020 12:56 PM EDT) Prealbumin 18(L) 20 - 40 mg/dL [facility] Comment: Prealbumin levels are generally lower in the pediatric population; adult concentrations are usually attained near puberty. Blood specimen (specimen) 01/18/2020 12:56 PM EDT 01/18/2020 4:52 PM EDT Narrative Resulting Agency Comment Spec In Lab / APD Priya Charles APRN CHEMISTRY ORDERA BLES [facility] [place] [address] * (ABNORMAL) Ferritin (01/18/2020 12:56 PM EDT) Ferritin 16(L) 30 - 400 ng/mL [facility] [...] BLES Performing Organization Address [facility]/ZIP Co de Phone Number LABORATORY [address] [place] [address] * (ABNORMAL) Iron and TIBC (01/18/2020 12:56 PM EDT) Iron 44 30 - 150 mcg/dL LABORATORY TIBC 397 250 - 450 mcg/dL LAB[facility]ORY Iron Saturation 11(L) 20 - 50 % [facility] Blood specimen (specimen) 01/18/2020 12:56 PM EDT 01/18/2020 1:45 PM EDT Narrative Resulting Agency Comment Spec In Lab / APD Priya Vivi [place] [facility] CHEMISTRY ORDERA BLES Performing Organization Address [facility] Co de Phone Number LABORATORY [address] [place] [address] * PTH (01/18/2020 12:56 PM EDT) PTH 54 15 - 65 pg/mL [facility] Blood specimen (specimen) 01/18/2020 12:56 PM EDT 01/18/2020 4:52 PM EDT Narrative Resulting Agency Comment Spec In Lab / APD Priya Charles APRN CHEMISTRY ORDERA BLES Performing Organization Address City/[facility]/ZIP Co de Phone Number [facility] [place] [address] * Vitamin D, 25-Hydroxy (01/18/2020 12:56 PM EDT) 25-OH Vit D Total 38 21 - 100 ng/mL [facility] Comment: Please note, effective November 28, 2019, additional result field for Vitamin D Interpretation, and updated flagging notification. 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
--- OUTSIDE RECORDS SUMMARY | 2024-02-22 00:53 | XMS_ITS | Encounter Summary ---
Author Organization [facility] [place] [address] Care Team Providers Care Pain Coordinator Name Role Phone Hoang Castellanos APRN Primary Care Provider Encounter Details Date Type Department Care Team (Late st Contact Info) Description 12/24/2019 Orders Only Primary Care at [facility] [address] [place] [phone] Payal Ace, NETWORK ENGINEER Social History Tobacco Use Types Packs/Day Years [...] on filedocumented in this encounter Care Teams Pain Coordinator Relationship Specialty Start Date End Date Hoang Castellanos APRN [address] [place] [address] PCP - General Family Medicine 12/07/19 03/11/20 documented as of this encounter
--- OUTSIDE RECORDS SUMMARY | 2024-02-22 00:53 | XMS_ITS | Encounter Summary ---
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 Name Role Phone Yisel Marroquin MD Primary Care Provider [phone] Reason for Visit * Reason Comments Follow-up Encounter Details Date Type Department Care Team (Latest Contact Info) Description 09/24/2019 1:30 PM EST Office Visit [facility] [address] [place] [id number] Yisel Marroquin MD [address] [facility] [place] [address] Need for shingles vaccine; Need for prophylactic vaccination and inoculation against influenza; Dizzinesses; Vision changes; Postsurgical malabsorption, not elsewhere classified ; Abnormal findings on diagnostic imaging of other specified body structures ; Chronic left SI joint pain; Hyperlipidemia, unspecified hyperlipidemia type Social History Tobacco Use Types Packs/Day [...] Sign Reading Time Taken Comments Blood Pressure 138/72 09/24/2019 1:15 PM EST Pulse 64 09/24/2019 1:15 PM EST Temperature - - Respiratory Rate - - Oxygen Saturation 95% 09/24/2019 1:15 PM EST Inhaled Oxygen Concentration - - Weight 103 kg (227 lb) 09/24/2019 1:15 PM EST Height 162 cm (5' 3.78) 09/24/2019 1:15 PM EST Body Mass Index 39.23 09/24/2019 1:15 PM EST documented in this encounter Patient Instructions * Patient Instructions* Yisel Marroquin MD - 09/24/2019 1:30 PM EST Images from the original note were not included. Use a topical patch for the L side pain. Patient Education Sacroiliac Joint Pain: Care Instructions Your Care Instructions The sacroiliac joints connect the spine and each side of the pelvis. These joints bear the weight and stress of your torso. This makes them easy to injure. Injury or overuse of these joints may causelow back pain. Stress on these joints can cause joint pain. Sacroiliac joint pain is more common in women. Certain kinds of arthritis also may cause this type of joint pain. Home treatment may help you feel better. So can avoiding activities that stress your back. Your doctor also may recommend physical therapy. This may include doing exercises and stretches to help withpain. You may also learn to use good posture. Follow-up care is a ramírez part of your treatment and safety. Be sure to make and go to all appointments, and call your doctor if you are having problems. It's also a good idea to know your test resultsand keep a list of the medicines you take. How can you care for yourself at home? ?? Ask your doctor about light exercises that may help your back pain. Try to do light activity throughout the day. But make sure to take rests as needed. Find a comfortable position for rest, but don't stay in one position for too long. Avoid activities that cause pain. ?? To apply heat, put a warm water bottle, a heating pad set on low, or a warm cloth on your back. Do not go to sleep with a heating pad on your skin. ?? Put ice or a cold pack on your back for 10 to 20 minutes at a time. Put a thin cloth between theice and your skin. ?? If the doctor gave you a prescription medicine for pain, take it as prescribed. ?? If you are not taking a prescription pain medicine, ask your doctor if you can take an eupq-fuo-dgcthlf pain medicine, such as acetaminophen (Tylenol), ibuprofen (Advil, Motrin), or naproxen (Aleve). Read and follow all instructions on the label. Take pain medicines exactly as directed. ?? Do not take two or more pain medicines at the same time unless the doctor told you to. Many painmedicines have acetaminophen, which is Tylenol. Too much acetaminophen (Tylenol) can be harmful. ?? To prevent future back pain, do exercises to stretch and strengthen your back and stomach. Learnhow to use good posture, safe lifting techniques, and proper body mechanics. When should you call for help? Call 911 anytime you think you may need emergency care. For example, call if: ? You are unable to move a leg at all. ??Call your doctor now or seek immediate medical care if: ? You have new or worse symptoms in your legs or buttocks. Symptoms may include: ? Numbness or tingling. ? Weakness. ? Pain. ? You lose bladder or bowel control. ??Watch closely for changes in your health, and be sure to contact your doctor if: ? You are not getting better as expected. Where can you learn more? Visit our [employer] information library at [email or web address] You can also view health information on [employer], your personal patient account. Log in or sign uptoday. Enter Y571 in the search box to learn more about Sacroiliac Joint Pain: Care Instructions. Current as of: January 17, 2019 Content Version: 12.3 ?? [id number] [employer]. Care instructions adapted under license by [facility]. If you have questions about a medical condition or this instruction, always ask your healthcare professional. [employer] disclaims any warranty or liability for your use of this information. Patient Education Sacroiliac Pain: Exercises Introduction Here are some examples of exercises for you to try. The exercises may be suggested for a condition or for rehabilitation. Start each exercise slowly. Ease off the exercises if you start to have pain. You will be told when to start these exercises and which ones will work best for you. How to do the exercises Sceu-ii-kndns stretch 1. Do not do the zkbo-qv-mylcu exercise if it causes or increases back or leg pain. 2. Lie on your back with your knees bent and your feet flat on the floor. You can put a small pillow under your head and neck if it is more comfortable. 3. Grasp your hands under one knee and bring the knee to your chest, keeping the other foot flat onthe floor. 4. Keep your lower back pressed to the floor. Hold for at least 15 to 30 seconds. 5. Relax and lower the knee to the starting position. Repeat with the other leg. 6. Repeat 2 to 4 times with each leg. 7. To get more stretch, keep your other leg flat on the floor while pulling your knee to your chest. Bridging 1. Lie on your back with both knees bent. Your knees should be bent about 90 degrees. 2. Tighten your belly muscles by pulling in your belly button toward your spine. Then push your feet into the floor, squeeze your buttocks, and lift your hips off the floor until your shoulders, hips, and knees are all in a straight line. 3. Hold for about 6 seconds as you continue to breathe normally, and then slowly lower your hips back down to the floor and rest for up to 10 seconds. 4. Repeat 8 to 12 times. Hip extension 1. Get down on your hands and knees on the floor. 2. Keeping your back and neck straight, lift one leg straight out behind you. When you lift your leg, keep your hips level. Don't let your back twist, and don't let your hip drop toward the floor. 3. Hold for 6 seconds. Repeat 8 to 12 times with each leg. 4. If you feel steady and strong when you do this exercise, you can make it more difficult. To do this, when you lift your leg, also lift the opposite arm straight out in front of you. For example, lift the left leg and the right arm at the same time. (This is sometimes called the bird dog exercise.) Hold for 6 seconds, and repeat 8 to 12 times on each side. Clamshell 1. Lie on your side with a pillow under your head. Keep your feet and knees together and your kneesbent. 2. Raise your top knee, but keep your feet together. Do not let your hips roll back. Your legs should open up like a clamshell. 3. Hold for 6 seconds. 4. Slowly lower your knee back down. Rest for 10 seconds. 5. Repeat 8 to 12 times. 6. Switch to your other side and repeat steps 1 through 5. Hamstring wall stretch 1. Lie on your back in a doorway, with one leg through the open door. 2. Slide your affected leg up the wall to straighten your knee. You should feel a gentle stretch down the back of your leg. 1. Do not arch your back. 2. Do not bend either knee. 3. Keep one heel touching the floor and the other heel touching the wall. Do not point your toes. 3. Hold the stretch for at least 1 minute to begin. Then try to lengthen the time you hold the stretch to as long as 6 minutes. 4. Switch legs, and repeat steps 1 through 3. 5. Repeat 2 to 4 times. 6. If you do not have a place to do this exercise in a doorway, there is another way to do it: 7. Lie on your back, and bend one knee. 8. Loop a towel under the ball and toes of that foot, and hold the ends of the towel in your hands. 9. Straighten your knee, and slowly pull back on the towel. You should feel a gentle stretch down the back of your leg. 10. Switch legs, and repeat steps 1 through 3. 11. Repeat 2 to 4 times. Lower abdominal strengthening 1. Lie on your back with your knees bent and your feet flat on the floor. 2. Tighten your belly muscles by pulling your belly button in toward your spine. 3. Lift one foot off the floor and bring your knee toward your chest, so that your knee is straightabove your hip and your leg is bent like the letter L. 4. Lift the other knee up to the same position. 5. Lower one leg at a time to the starting position. 6. Keep alternating legs until you have lifted each leg 8 to 12 times. 7. Be sure to keep your belly muscles tight and your back still as you are moving your legs. Be sure to breathe normally. Piriformis stretch 1. Lie on your back with your legs straight. 2. Lift your affected leg, and bend your knee. With your opposite hand, reach across your body, andthen gently pull your knee toward your opposite shoulder. 3. Hold the stretch for 15 to 30 seconds. 4. Switch legs and repeat steps 1 through 3. 5. Repeat 2 to 4 times. Follow-up care is a ramírez part of your treatment and safety. Be sure to make and go to all appointments, and call your doctor if you are having problems. It's also a good idea to know your test resultsand keep a list of the medicines you take. Where can you learn more? Visit our [employer] information library at [email or web address] You can also view health information on [employer], your personal patient account. Log in or sign uptoday. Enter T635 in the search box to learn more about Sacroiliac Pain: Exercises. Current as of: January 17, 2019 Content Version: 12.3 ?? [id number] [employer]. Care instructions adapted under license by [facility]. If you have questions about a medical condition or this instruction, always ask your healthcare professional. [employer] disclaims any warranty or liability for your use of this information. Patient Education Sacroiliac Joint Pain: Care Instructions Your Care Instructions The sacroiliac joints connect the spine and each side of the pelvis. These joints bear the weight and stress of your torso. This makes them easy to injure. Injury or overuse of these joints may causelow back pain. Stress on these joints can cause joint pain. Sacroiliac joint pain is more common in women. Certain kinds of arthritis also may cause this type of joint pain. Home treatment may help you feel better. So can avoiding activities that stress your back. Your doctor also may recommend physical therapy. This may include doing exercises and stretches to help withpain. You may also learn to use good posture. Follow-up care is a ramírez part of your treatment and safety. Be sure to make and go to all appointments, and call your doctor if you are having problems. It's also a good idea to know your test resultsand keep a list of the medicines you take. How can you care for yourself at home? ?? Ask your doctor about light exercises that may help your back pain. Try to do light activity throughout the day. But make sure to take rests as needed. Find a comfortable position for rest, but don't stay in one position for too long. Avoid activities that cause pain. ?? To apply heat, put a warm water bottle, a heating pad set on low, or a warm cloth on your back. Do not go to sleep with a heating pad on your skin. ?? Put ice or a cold pack on your back for 10 to 20 minutes at a time. Put a thin cloth between theice and your skin. ?? If the doctor gave you a prescription medicine for pain, take it as prescribed. ?? If you are not taking a prescription pain medicine, ask your doctor if you can take an zfgu-gmd-xjcdnbq pain medicine, such as acetaminophen (Tylenol), ibuprofen (Advil, Motrin), or naproxen (Aleve). Read and follow all instructions on the label. Take pain medicines exactly as directed. ?? Do not take two or more pain medicines at the same time unless the doctor told you to. Many painmedicines have acetaminophen, which is Tylenol. Too much acetaminophen (Tylenol) can be harmful. ?? To prevent future back pain, do exercises to stretch and strengthen your back and stomach. Learnhow to use good posture, safe lifting techniques, and proper body mechanics. When should you call for help? Call 911 anytime you think you may need emergency care. For example, call if: ? You are unable to move a leg at all. ??Call your doctor now or seek immediate medical care if: ? You have new or worse symptoms in your legs or buttocks. Symptoms may include: ? Numbness or tingling. ? Weakness. ? Pain. ? You lose bladder or bowel control. ??Watch closely for changes in your health, and be sure to contact your doctor if: ? You are not getting better as expected. Where can you learn more? Visit our health information library at [email or web address] You can also view health information on [employer], your personal patient account. Log in or sign uptoday. Enter Y571 in the search box to learn more about Sacroiliac Joint Pain: Care Instructions. Current as of: January 17, 2019 Content Version: 12.3 ?? [id number] [employer]. Care instructions adapted under license by [facility]. If you have questions about a medical condition or this instruction, always ask your healthcare professional. [employer] disclaims any warranty or liability for your use of this information. documented in this encounter Progress Notes * Yisel Marroquin MD - 09/24/2019 1:30 PM EST Images from the original note were not included. Subjective: Patient ID: Jeannie Rico is a 59 y.o. female who presents for a follow up. Diabetes Follow-up: She does not check her blood sugars at home. ?? She has been trying to follow a carbohydrate controlled diet. Her dietary downfall is candy or chips. She does drink sweetened beverages, occasional coffee, stopped drinking Pepsis ?? She states she exercises regularly, not as active outside but does yoga every night. ?? Last 3 Hemoglobin A1Cs Lab Results Component Value Date HA1C 5.9 (H) 02/07/2019 HA1C 5.6 (External Lab) 01/04/2018 HA1C 6.3 (ExtH) 02/07/2017 Hypertension: She has not been checking her blood pressure at home. BP Readings from Last 3 Encounters: 09/24/19 138/72 05/04/19 144/68 04/11/19 124/64 Obesity: Wt Readings from Last 3 Encounters: 09/24/19 103 kg (227 lb) 05/04/19 104.1 kg (229 lb 9.6 oz) 04/11/19 104.2 kg (229 lb 12.8 oz) Hypothyroidism: Lab Results Component Value Date TSH 2.125 (External Lab) 01/04/2018 Hyperlipidemia: Lipid Panel Lab Results Component Value Date CHLPL 134 (External Lab) 01/04/2018 HDL 40 (External Lab) 01/04/2018 CHOLHDL 3.4 (External Lab) 01/04/2018 TRIG 154 (ExtH) 01/04/2018 LDLCHOL 63 (External Lab) 01/04/2018 Depression/Mood/Anxiety: PHQ9 Questionnaires Data (Clinic and Pt Entered): Today's value PHQ-9 QUESTIONNAIRE (AMB) 09/24/2019 PHQ - 9 Score (Clinic) - PHQ - 9 Score (Patient) 3 (Minimal Depression) Little interest or pleasure (Patient) More than half the days Down, depressed, hopeless (Patient) Not at all Trouble sleeping (Patient) Not at all Tired or no energy (Patient) Not at all Poor appetite or overeating (Patient) Not at all Feeling like a failure (Patient) Not at all Trouble concentrating (Patient) Several days Moving or speaking slowly (Patient) Not at all Would be better off (Patient) Not at all GAD7 LAURA-7 Patient Reported Responses 09/24/2019 Nervous, anxious (Patient) Not at all Unable to stop worrying (Patient) Not at all Worrying about different things (Patient) Not at all Trouble relaxing (Patient) Not at all Restless (Patient) Not at all Easily annoyed, irritable (Patient) Several days Afraid something awful will happen (Patient) Not at all Difficulty (Patient) Somewhat difficult LAURA-7 Score (Patient) 1 (Minimal Anxiety) TODAY's Concerns: Low Abdominal Pain that has been happening for a over a month- worsens after drinking a lot of water or eating Worsening Low Back Pain, worsening over the last 3 weeks, Intermittent and sharp at times Dizziness- ? Blood glucose monitor Notices she feels more dizzy after eating sweets or if she does not eat enough. She felt off her bed one month ago. Did bruise her rib and saw starts. She did hit her head. Since then the dizziness is worse. She is now dizzy pretty much all the time worse when she does not eat enough or she eats too much sugar. When she is hungry her hunger is intense and immediate. Back is painful in the lumbar area and she sometimes can't bend straight up. She sometimes feels weak in the knees. No difference between going up or down a hill. When she bends down she gets more pain. She does do yoga in the bedbut doing alto of walking she is having problems with his. Now it has been bad for a year in her spine but 3-4 weeks ago she got worse. She is working to do In [employer] program with her [employer] program. Would like shingles and flu vaccine Patient states they do not need any refills at this time. Flu Vaccine [id number] Age Considerations Vaccine Name Adult [x] 6 month and older None Flulaval [] 50 yrs -65 yrs GIVE IF Patient has: ??? Dx of Asthma or COPD and uses inhaler other than just albuterol, Dx of Diabetes with an A1C greater than 8% pt's current A1C: Lab Results Component Value Date HA1C 5.9 (H) 02/07/2019 ? Immunocompromised patients (active malignancy, asplenia, HIV infection, cochlear implant, cerebrospinal fluid leak, sever kidney disease, pt with autoimmune disease or on immunosuppressive drug) Flublok [] 65 yrs and older Should only be given to those patients who are 65 yrs and older Fluad The information was supplied by patient. Have you had any of the following: History of Guillian-Leach[place] Syndrome, allergy to eggs, or allergicreaction to a previous dose of influenza, or fever greater than 101 degrees in the last 24 hours? no. Influenza immunization was administered as documented. . REVIEW OF SYSTEMS 09/24/2019 Constitutional Weakness, Pain Ear / nose / throat / mouth None of the above Eyes Blurry vision, Dry eyes Respiratory None of the above Cardiovascular None of the above Gastrointestinal Appetite problems, Abdominal pain Skin, hair Dry skin Musculoskeletal Joint stiffness, Back pain, Muscle stiffness, Reduced range of motion, Unable to walk/difficulty walking Neurological Balance difficulty, dizziness, Fainting, Headaches Hematologic / Lymphatic Easy bruising or bleeding Genitourinary None of the above Objective: Physical Exam Gen: Awake, alert, oriented, no distress HEENT: No head trauma noted, no scleral icterus. CV: Regular rate and rhythm, S1/S2 normal, no extra sounds noted. Pulm: Diffuse crackles and b/l, poor air flow Extremities: Warm, posterior tibial, dorsalis pedis pulses 2+ bilaterally. Neuro: Normal speech, moving all extremities equally. Psych: Normal Mood and affect Skin: No rashes or concerning lesions on exposed skin MS: +tender L SI joint, other kim normal gait, strength, movements BP 138/72 (BP Location (NBP): Right arm, Patient Position: Sitting) Pulse 64 Ht 162 cm (5' 3.78) Wt 103 kg (227 lb) LMP (LMP Unknown) SpO2 95% BMI 39.23 kg/m?? Lab Results Component Value Date WBC 7.6 09/11/2018 HGB 14.0 09/11/2018 HCT 42.7 09/11/2018 PLATELET 161 09/11/2018 CHLPL 134 (External Lab) 01/04/2018 TRIG 154 (ExtH) 01/04/2018 HDL 40 (External Lab) 01/04/2018 LDLCHOL 63 (External Lab) 01/04/2018 ALT 7 09/11/2018 AST 13 09/11/2018 NA 141 09/11/2018 K 4.1 09/11/2018 CL 101 09/11/2018 CREATININE 0.83 09/11/2018 BUN 15 09/11/2018 CO2 26 09/11/2018 TSH 2.125 (External Lab) 01/04/2018 INR 1.0 04/16/2013 HA1C 5.9 (H) 02/07/2019 MICROALBUR 2.1 (External Lab) 01/04/2018 Assessment and Plan: 58 y/o F with ashtma and smoking hx, has reduced her smoking, also new SI joint pain on background of chronic complex back pain. Will trial PT at home and with program, start meloxicam but may not tolerate with stomach issues, will also use topical patches. Check labs for worsening dizziness. May need re-eval with nuero in future if not improving and no answers from labs. Problem List Items Addressed This Visit Hyperlipidemia Relevant Orders Lipid Panel (Reflex Direct LDL) Other Visit Diagnoses Need for shingles vaccine Relevant Orders Shingrix Zoster Vaccine, IM (Completed) Need for prophylactic vaccination and inoculation against influenza Relevant Orders FluLaval Quadrivalent vaccine, Preservative Free 6MOS+ (Completed) Dizzinesses Relevant Orders Hemoglobin A1c CBC (with Diff) Comprehensive metabolic panel (non-fasting) Magnesium TSH Vision changes Relevant Orders Hemoglobin A1c CBC (with Diff) Comprehensive metabolic panel (non-fasting) Magnesium Postsurgical malabsorption, not elsewhere classified Relevant Orders Hemoglobin A1c Abnormal findings on diagnostic imaging of other specified body structures Relevant Orders TSH Chronic left SI joint pain Relevant Medications meloxicam (MOBIC) 15 mg Tablet Your Medications Accurate as of September 24, 2019 2:35 PM. If you have any questions, ask your nurse or doctor. New Medications Dose Details meloxicam 15 mg Tab Commonly known as: MOBIC Take 1 tablet by mouth daily. Started by: Yisel Marroquin MD 15 mg Quantity: 30 tablet Refills: 11 Continued medications, unchanged Dose Details albuterol 90 mcg/actuation Hfaa Commonly known as: ProAir HFA Inhale 2 puffs into the lungs every 4 hours as needed. Use with spacer 2 puff Quantity: 1 Inhaler Refills: 11 alendronate 70 mg Tab Commonly known as: Fosamax Take 1 tablet by mouth every 7 days. Take in AM with full glass of water, on an empty stomach. Do not lie down for 30 min. 70 mg Quantity: 52 tablet Refills: 0 alum-mag hydroxide-simeth 200-200-20 mg/5 mL Susp Commonly known as: Maalox Take 10 mLs by mouth every 6 hours as needed for Indigestion. 10 mL Refills: 0 aspirin EC 81 mg Tbec Take 1 tablet by mouth daily. 81 mg Quantity: 90 tablet Refills: 3 cholecalciferol (Vitamin D3) 50 mcg (2,000 unit) Tab Take 1 tablet by mouth daily. 2,000 Units Quantity: 90 tablet Refills: 3 clopidogreL 75 mg Tab Commonly known as: Plavix Take 1 tablet by mouth daily. 75 mg Quantity: 90 tablet Refills: 3 cyanocobalamin (Vitamin B-12) 1,000 mcg Tab Commonly known as: Vitamin B-12 Take 1 tablet by mouth once a week. 1,000 mcg Quantity: 12 tablet Refills: 3 fluticasone propion-salmeteroL 500-50 mcg/dose Dsdv Commonly known as: Advair Diskus Inhale 1 puff into the lungs 2 times daily. 1 puff Quantity: 180 each Refills: 3 ibuprofen 600 mg Tab Commonly known as: Advil;Motrin TAKE ONE (1) TABLET BY MOUTH THREE TIMES A DAY NEEDED -SKIP ASPIRIN IF USING THIS- (VIAL) Quantity: 90 tablet Refills: 3 isosorbide mononitrate CR 30 mg Tablet sr Commonly known as: Imdur Take 1 tablet by mouth daily. 30 mg Quantity: 90 tablet Refills: 3 lactobacillus rhamnosus (GG) 10 billion cell Cap Commonly known as: CULTURELLE Take 2 capsules by mouth 2 times daily. 2 capsule Refills: 0 lamoTRIgine 200 mg Tab Commonly known as: LaMICtal Take 1 tablet by mouth daily. 200 mg Quantity: 90 tablet Refills: 3 levothyroxine 50 mcg Tab Commonly known as: Synthroid Take 1 tablet by mouth daily. Pt needs to come in for TSH. 50 mcg Quantity: 90 tablet Refills: 3 lisinopriL 10 mg Tab Commonly known as: Prinivil;Zestril Take 1.5 tablets by mouth daily. 15 mg Quantity: 135 tablet Refills: 3 MARIJUANA ORAL Take by mouth. Refills: 0 metoprolol succinate XL 25 mg Tablet sr Commonly known as: Toprol-XL Take 0.5 tablets by mouth daily. 12.5 mg Quantity: 45 tablet Refills: 3 omeprazole 20 mg Cpdr Commonly known as: PriLOSEC Take 1 capsule by mouth 2 times daily for 180 days. Take 30 minutes before breakfast and in the evening 20 mg Quantity: 56 capsule Refills: 5 prazosin 2 mg Cap Commonly known as: Minipress Take 3 capsules by mouth nightly. 6 mg Quantity: 90 capsule Refills: 5 sertraline 50 mg Tab Commonly known as: Zoloft Take 1 tablet by mouth daily. 50 mg Quantity: 90 tablet Refills: 3 simvastatin 40 mg Tab Commonly known as: Zocor Take 1 tablet by mouth nightly. 40 mg Quantity: 90 tablet Refills: 3 tiotropium bromide 2.5 mcg/actuation Mist Commonly known as: Spiriva Respimat Inhale 2 puffs into the lungs nightly. 2 puff Quantity: 12 g Refills: 3 tiZANidine 4 mg Tab Commonly known as: Zanaflex TAKE ONE (1) TABLET BY MOUTH EVERY 6-8 HOURS NEEDED *MAX 3 DOSES PER 24HR* (VIAL) Quantity: 60 tablet Refills: 3 traZODone 150 mg Tab Commonly known as: DESYREL Take 150 mg by mouth nightly. 150 mg Refills: 0 umeclidinium 62.5 mcg/actuation Dsdv Commonly known as: Incruse Ellipta Inhale 62.5 mcg into the lungs daily. 62.5 mcg Quantity: 1 each Refills: 3 Yisel Marroquin MD documented in this encounter Plan of Treatment Not on file documented as of this encounter Results * Lipid Panel (Reflex Direct LDL) (12/27/2019 7:27 AM EDT) Chol, Total 114 mg/dL [facility] Comment: Lower Risk: <200 mg/dL Average Risk: 200-239 mg/dL Higher Risk: >ir=460 mg/dL Triglycerides 102 mg/dL [facility] Comment: Average Risk/Lower Risk: <150 mg/dL Borderline High Risk: 150-199 mg/dL High Risk: 200-499 mg/dL Very High Risk: >oc=800 mg/dL HDL 38 mg/dL [facility] Comment: Males: ?? Higher Risk: <40 mg/dL Females: ?? HIgher Risk: <50 mg/dL LDL Cholesterol 56 mg/dL [facility] Comment: Lowest Risk: <100 mg/dL Lower Risk: 100-129 mg/dL Borderline High Risk: 130-159 mg/dL High Risk: 160-189 mg/dL Very High Risk: >ev=468 mg/dL Chol/HDL Ratio 3.0 ratio [facility] Lipid Interpretation See Note [facility] Comment: Lipid management should be guided by a patient? s ASCVD risk, goals and preferences. ACC/AHA Guidelines recommend high intensity statin if clinical ASCVD or LDL greater than or equal to 190 mg/dL. http://[employer].atCollab/IBO-MUC-Bwfkentvk Adults aged 40-75 with LDL 70-189 mg/dL should have their 10 year ASCVD risk estimated with the ACC/AHA ASCVD risk station cashier http://tools.acc.org/TIPBU-Ccmm-Edfbehyey/ Statin should be discussed if risk greater [...] APD Yisel Marroquin MD CHEMISTRY ORDERABLES [facility] [address] [place] [address] * Magnesium (12/27/2019 7:27 AM EDT) Magnesium 0.80 0.69 - 1.07 mmol/L [facility] Blood specimen (specimen) 12/27/2019 7:27 AM EDT 12/27/2019 8:44 AM EDT Narrative Resulting Agency Comment Spec In Lab / APD Yisel Marroquin MD CHEMISTRY ORDERABLES [facility] [address] [place] [address] documented in this encounter Visit Diagnoses Diagnosis Need for shingles vaccine Need for prophylactic vaccination and inoculation against other viral diseases Need for prophylactic vaccination and inoculation against influenza Dizzinesses Vision changes Unspecified visual disturbance Postsurgical malabsorption, not elsewhere classified Abnormal findings on diagnostic imaging of other specified body structures Chronic left SI joint pain Disorders of sacrum Hyperlipidemia, unspecified hyperlipidemia type documented in this encounter Care Teams Ampoule Inspector Relationship Specialty Start Date End Date Yisel Marroquin MD [address] [place] [address] PCP - General General Internal Medicine 03/06/1911/22 documented as of this encounter
--- OUTSIDE RECORDS SUMMARY | 2024-02-22 00:53 | XMS_ITS | Encounter Summary ---
Author Organization [facility] [place] [address] Care Team Providers Care Kier Pleater Name Role Phone Yisel Marroquin MD Primary Care Provider [phone] Reason for Visit * Reason Onset Date Comments Medication Refill 08/20/2019 Encounter Details Date Type Department Care Team (Late st Contact Info) Description 08/20/2019 Refill Primary Care at [facility] [address] [place] [phone] Yisel Marroquin MD [address] [place] [address] Social History Tobacco Use Types Packs/Day Years [...] Telephone Encounter - Brunilda Cabrales LPN - 08/20/2019 12:30 PM EST Last Prescription Fill Date: 06/12/2018 Number Dispensed and Refills: 23/06 Last Related Office Visit: 04/11/2019 Upcoming Appointment: 09/24/2019 No flowsheet data found. Lab Results Component [...] on filedocumented in this encounter Care Teams Kier Pleater Relationship Specialty Start Date End Date Yisel Marroquin MD [address] [place] [address] PCP - General General Internal Medicine 03/06/1911/22 documented as of this encounter
--- OUTSIDE RECORDS SUMMARY | 2024-02-22 00:53 | XMS_ITS | Encounter Summary ---
[place] [address] Care Team Providers Care Spun Paste Machine Operator Name Role Phone Hoang Castellanos APRN Primary Care Provider Encounter Details Date Type Department Care Team (Latest Contact Info) Description 02/05/2020 12:55 PM EDT Ancillary Procedure Radiology XRay at the [facility] at [facility] [address] [place] [phone] Hoang Castellanos APRN [address] [facility] [place] [address] Closed fracture of distal end of right [...] Comments XR WRIST 2 VIEWS RIGHT Routine 02/05/2020 1:05 PM EDT Closed fracture of distal end of right radius, unspecified fracture morphology, initial encounter documented in this encounter Results * XR Wrist 2 views Right (02/05/2020 1:05 PM EDT) Anatomical Region Laterality Modality Hand, Wrist Right Digital Radiogra phy Impressions 02/05/2020 1:43 PM EDT Comminuted fracture of the distal radius. Minimally displaced fracture of the ulnar styloid. Thank you for letting us participate in the care of this patient. For questions regarding this report, please contact the number below. ? Electronically signed by: Flory Bedoya [facility] ([phone]), at 02/05/2020 1:43 PM Narrative 02/05/2020 1:43 PM EDT EXAMINATION: XR WRIST 2 VIEWS RIGHT CLINICAL HISTORY: distal fx-need additional views of wrist TECHNIQUE: 2 views RIGHT wrist COMPARISON: Right forearm radiographs 02/05/2020 FINDINGS: There is a comminuted fracture of the distal radius, with involvement of the metaphysis and diaphysis. A subtle linear lucency extends through the articular surface. The dominant fracture is transversely oriented, however there is a vertically oriented component that extends approximately 6 cm proximal of the articular surface. Mildly displaced fracture of the ulnar styloid. Procedure Note Flory Bedoya MD - 02/05/2020 EXAMINATION: XR WRIST 2 VIEWS RIGHT CLINICAL HISTORY: distal fx-need additional views of wrist TECHNIQUE: 2 views RIGHT wrist COMPARISON: Right forearm radiographs 02/05/2020 FINDINGS: There is a comminuted fracture of the distal radius, with involvement ofthe metaphysis and diaphysis. A subtle linear lucency extends through thearticular surface. The dominant fracture is transversely oriented, however there cedric vertically oriented component that extends approximately 6 cm proximal ofthe articular surface. Mildly displaced fracture of the ulnar styloid. IMPRESSION Comminuted fracture of the distal radius. Minimally displaced fracture of the ulnar styloid. Thank you for letting us participate in the care of this patient. Forquestions regarding this report, please contact the number below. Electronically signed by: Flory Bedoya [facility]([phone]), at 02/05/2020 1:43 PM Hoang Castellanos APRN IMG DX ORDERABLES documented in this encounter Visit Diagnoses Diagnosis Closed fracture of distal end of right radius, unspecified fracture morphology, initial encounter documented in this encounter Care Teams Spun Paste Machine Operator Relationship Specialty Start Date End Date Hoang Castellanos APRN [address] [place] [address] PCP - General Family Medicine 12/07/19 03/11/20 documented as of this encounter
--- OUTSIDE RECORDS SUMMARY | 2024-02-22 00:53 | XMS_ITS | Encounter Summary ---
Author Organization [facility] [place] [address] Care Team Providers Care Mat Worker Name Role Phone Hoang Castellanos APRN Primary Care Provider [phone] Encounter Details Date Type Department Care Team (Latest Contact Info) Description 02/05/2020 12:30 PM EDT Ancillary Procedure Radiology XRay at the [facility] at [facility] [address] [place] [phone] Hoang Castellanos APRN [address] [facility] [place] [address] Right forearm pain Social History Tobacco Use Types Packs/Day Years [...] Name Priority Date/Time Associated Diagnosis Comments XR FOREARM RIGHT Routine 02/05/2020 12:2 9 PM EDT Right forearm pain documented in this encounter Results * XR Forearm Right (Generic) (02/05/2020 12:29 PM EDT) Anatomical Region Laterality Modality Forearm Right Digital Radiogra phy Impressions 02/05/2020 12:53 PM EDT Comminuted fracture of the distal radius. Minimally displaced fracture of the ulnar styloid. Thank you for letting us participate in the care of this patient. For questions regarding this report, please contact the number below. ? Electronically signed by: Flory Bedoya [facility] ([phone]), at 02/05/2020 12:53 PM Narrative 02/05/2020 12:53 PM EDT EXAMINATION: XR FOREARM RIGHT (GENERIC) CLINICAL HISTORY: pain over mid shaft of radius s/p fall yesterday eval for fx TECHNIQUE: 2 views RIGHT forearm COMPARISON: None FINDINGS: Is a comminuted fracture of the distal radius, with involvement of the diaphysis and metaphysis. There is no appreciable involvement of the articular surface. In addition to the transverse fracture, which demonstrates apex volar angulation, a vertically oriented component extends 6 cm proximal to the articular surface. There is a minimally displaced fracture of the ulnar styloid. Procedure Note Flory Bedoya MD - 02/05/2020 EXAMINATION: XR FOREARM RIGHT (GENERIC) CLINICAL HISTORY: pain over mid shaft of radius s/p fall yesterday evalfor fx TECHNIQUE: 2 views RIGHT forearm COMPARISON: None FINDINGS: Is a comminuted fracture of the distal radius, with involvement of thediaphysis and metaphysis. There is no appreciable involvement of the articularsurface. In addition to the transverse fracture, which demonstrates apex volarangulation, a vertically oriented component extends 6 cm proximal to the articularsurface. There is a minimally displaced fracture of the ulnar styloid. IMPRESSION Comminuted fracture of the distal radius. Minimally displaced fracture of the ulnar styloid. Thank you for letting us participate in the care of this patient. Forquestions regarding this report, please contact the number below. Hoang Castellanos APRN IMG DX ORDERABLES documented in this encounter Visit Diagnoses Diagnosis Right forearm pain Pain in limb documented in this encounter Care Teams Mat Worker Relationship Specialty Start Date End Date Hoang Castellanos APRN [address] [place] [address] PCP - General Family Medicine 12/07/19 03/11/20 documented as of this encounter
--- OUTSIDE RECORDS SUMMARY | 2024-02-22 00:53 | XMS_ITS | Encounter Summary ---
Author Organization [facility] [place] [address] Care Team Providers Care Senior Mechanical Development Engineer Name Role Phone Hoang Castellanos APRN Primary Care Provider [phone] Reason for Referral * Diagnostic Test (Routine) - Closed Specialty Diagnoses / Procedures Referred By Contac t Referred To Contact Radiology Diagnoses Chronic right-sided low back pain with right-sided sciatica Procedures MRI Lumbar Spine wo Contrast (Generic) Hoang Castellanos APRN [address] [place] [address] [facility] [address] [place] [address] Referral ID Status Reason Start Date Expiration Date V isits Requested Visits Authorized [id number] Closed Specialty Service Requested 02/05/2020 08/07/2021 1 1 Reason for Visit * Diagnostic Test (Routine) - Closed Specialty Diagnoses / Procedures Referred By Contac t Referred To Contact Radiology Diagnoses Chronic right-sided low back pain with right-sided sciatica Procedures MRI Lumbar Spine wo Contrast (Generic) Hoang Castellanos APRN [address] [place] [address] [facility] [address] [place] [address] Referral ID Status Reason Start Date Expiration Date V isits Requested Visits Authorized [id number] Closed Specialty Service Requested 02/05/2020 08/07/2021 1 1 Encounter Details Date Type Department Care Team (Latest Contact Info) Description 02/19/2020 7:23 AM EDT - 02/19/2020 11:59 PM EDT Hospital Encounter Radiology MRI at [facility] [address] [place] [address] Hoang Castellanos, POLICY ADVISER [address] [facility] [place], [place] [id number] Chronic right-sided low back pain with right-sided sciatica Discharge Disposition: Home Social History Tobacco Use [...] Sig Dispensed Refills Start Date End Date multivitamin (THERAGRAN) Tablet Take 1 tablet by mouth daily. MARIJUANA ORAL Take 1 Dose by mouth 2 times daily. sertraline (ZOLOFT) 100 mg Tablet Take 2 tablets by mouth 2 times daily. 01/27/2020 04/14/2023 lisinopriL (Prinivil;Zestril) 10 mg TabletIndications:Augie gn essential [...] by mouth daily. Taking half 12/12/2019 12/11/2021 prazosin (Minipress) 2 mg Capsule Take 3 capsules by mouth nightly. 84 each 11 11/27/2019 02/28/2020 tiZANidine (Zanaflex) 4 mg Tablet TAKE ONE [...] 6 hours as needed for Indigestion. 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 30 tablet 11 09/24/2019 03/04/2020 sertraline (Zoloft) 50 mg Tablet Take 1 [...] mouth daily. 90 tablet 3 08/20/2019 07/16/2020 ibuprofen (ADVIL;MOTRIN) 600 mg Tablet TAKE ONE (1) TABLET BY MOUTH THREE TIMES A DAY NEEDED -SKIP ASPIRIN IF USING THIS- (VIAL) 90 tablet 3 07/24/2019 03/04/2020 tiotropium bromide (SPIRIVA RESPIMAT) 2.5 mcg/actuation MistIndications:Asthma [...] with spacer 1 Inhaler 11 05/21/2019 10/27/2020 isosorbide mononitrate (IMDUR) 30 mg Tablet Sustained Release 24 hr Take 1 tablet by mouth daily. 90 tablet 3 04/11/2019 03/21/2020 alendronate (FOSAMAX) 70 mg TabletIndications:Age- related osteoporosis without current pathological fracture Take 1 tablet by mouth every 7 days. Take in AM with full glass of water, on an empty stomach. Do not lie down for 30 min. 52 tablet 04/11/2019 04/01/2020 traZODone (DESYREL) 150 mg Tablet Take 75 mg by mouth nightly. 10/01/2020 documented as of this encounter Plan of Treatment Not on file documented as of this encounter Procedures Procedure Name Priority Date/Time Associated Diagnosis Comments MRI LUMBAR SPINE WITHOUT CONTRAST Routine 02/19/2020 8:14 AM EDT Chronic right-sided low back pain with right-sided sciatica documented in this encounter Results * MRI Lumbar Spine wo Contrast (Generic) (02/19/2020 8:14 AM EDT) Anatomical Region Laterality Modality L-spine Magnetic Resonan ce Impressions 02/19/2020 10:08 AM EDT Overall mild degenerative change in the lumbar spine as described level by level in the body of the report. No nerve root impingement at any level. New small disc bulge at L3-L4, though with no more than mild central canal narrowing. Comment: The following findings are so common in people without low back pain that while we report their presence, they must be interpreted with caution and in context of the clinical situation (Reference- Carolynevik Et Al, Spine 2001). Findings: (Prevalence in patients without low back pain), disc degeneration (decreased T2 signal, height loss, bulge) (91%), disc T2-signal loss (83%), disc height loss (56%), disc bulge (64%), disc protrusion (32%), annular fissure (38%). Thank you for letting us participate in the care of this patient. For questions regarding this report, please contact the number below. ? Narrative 02/19/2020 10:08 AM EDT EXAMINATION: MRI LUMBAR SPINE WO CONTRAST (GENERIC) CLINICAL HISTORY: Lumbar radiculopathy, > 6 wks TECHNIQUE: MRI of the lumbar spine performed without intravenous contrast administration. COMPARISON: MRI lumbar spine 03/13/2013 FINDINGS: Hemangiomas throughout the lumbar spine with the largest being located in L1 and L5, similar to prior. Alignment is maintained. No spondylolisthesis. There is mild loss of intervertebral disc space signal throughout the lumbar spine. The conus is normal. Terminates at the level of the L1 vertebral body. Probable bilateral renal cysts present. No abdominal aortic aneurysm. T12-L1: Normal L1-L2: Small disc bulge indents the thecal sac. No significant central canal stenosis. No neural foraminal narrowing. L2-L3: Small disc bulge and mild bilateral facet arthropathy along with redundancy ligamentum flavum are present and indent thecal sac without significant central canal stenosis. No neural foraminal narrowing. L3-L4: There is a new, small disc bulge at L3-L4 and this along with mild bilateral facet arthropathy and redundancy ligamentum flavum combined produce mild central canal narrowing. There is also mild narrowing of the caudal aspect of each neural foramen. Subarticular recess narrowing is also mild, bilaterally. L4-L5: ??Small disc bulge and mild bilateral facet arthropathy along with redundancy ligamentum flavum are present and indent thecal sac without significant central canal stenosis. No neural foraminal narrowing. L5-S1: There are small disc bulge with superimposed small central disc protrusion and moderate bilateral facet arthropathy. There is indentation of the thecal sac without significant central canal stenosis. No neural foraminal narrowing. Procedure Note Bandar Tejeda MD - 02/19/2020 EXAMINATION: MRI LUMBAR SPINE WO CONTRAST (GENERIC) CLINICAL HISTORY: Lumbar radiculopathy, > 6 wks TECHNIQUE: MRI of the lumbar spine performed without intravenous contrastadministration. COMPARISON: MRI lumbar spine 03/13/2013 FINDINGS: Hemangiomas throughout the lumbar spine with the largest being located inL1 and L5, similar to prior. Alignment is maintained. No spondylolisthesis. Thereis mild loss of intervertebral disc space signal throughout the lumbar spine.The conus is normal. Terminates at the level of the L1 vertebral body. Probable bilateral renal cysts present. No abdominal aortic aneurysm. T12-L1: Normal L1-L2: Small disc bulge indents the thecal sac. No significant centralcanal stenosis. No neural foraminal narrowing. L2-L3: Small disc bulge and mild bilateral facet arthropathy along with redundancy ligamentum flavum are present and indent thecal sac without significant central canal stenosis. No neural foraminal narrowing. L3-L4: There is a new, small disc bulge at L3-L4 and this along withmild bilateral facet arthropathy and redundancy ligamentum flavum combinedproduce mild central canal narrowing. There is also mild narrowing of the caudalaspect of each neural foramen. Subarticular recess narrowing is also mild,bilaterally. L4-L5: Small disc bulge and mild bilateral facet arthropathy along with redundancy ligamentum flavum are present and indent thecal sac without significant central canal stenosis. No neural foraminal narrowing. L5-S1: There are small disc bulge with superimposed small central disc protrusion and moderate bilateral facet arthropathy. There is indentationof the thecal sac without significant central canal stenosis. No neuralforaminal narrowing. IMPRESSION Overall mild degenerative change in the lumbar spine as described level bylevel in the body of the report. No nerve root impingement at any level. New small disc bulge at L3-L4, though with no more than mild centralcanal narrowing. Comment: The following findings are so common in people without low backpain that while we report their presence, they must be interpreted with cautionand in context of the clinical situation (Reference- Sugark Et Al, [id number]). Findings: (Prevalence in patients without low back pain), discdegeneration (decreased T2 signal, height loss, bulge) (91%), disc T2-signal loss(83%), disc height loss (56%), disc bulge (64%), disc protrusion (32%), annularfissure (38%). Thank you for letting us participate in the care of this patient. Forquestions regarding this report, please contact the number below. Hoang Castellanos APRN [facility] MRI ORDERABLES documented in this encounter Visit Diagnoses Diagnosis Chronic right-sided low back pain with right-sided sciatica documented in this encounter Care Teams Senior Mechanical Development Engineer Relationship Specialty Start Date End Date Hoang Castellanos APRN [address] [place] [address] PCP - General Family Medicine 12/07/19 03/11/20 documented as of this encounter
--- OUTSIDE RECORDS SUMMARY | 2024-02-22 00:53 | XMS_ITS | Encounter Summary ---
[place] [address] Care Team Providers Care Water Superintendent Name Role Phone Yisel Marroquin MD Primary Care Provider [phone] Encounter Details Date Type Department Care Team (Late st Contact Info) Description 05/23/2019 Telephone Primary Care at [facility] [address] [place] [phone] Shannon Chung RN Social History Tobacco Use Types Packs/Day [...] Addendum Note - Shannon Chung RN - 05/28/2019 10:08 AM ESTAddended by: SHANNON CHUNG on: 05/28/2019 10:08 AM Modules accepted: Orders * Telephone Encounter - Shannon Chung RN - 05/28/2019 10:06 AM EST Pt called asking for rx to sent to [facility]. rx sent * Telephone Encounter - Shannon Chung RN - 05/25/2019 5:11 PM EDT Discussed with PCP, pt instructed to increase lisinopril to 15mg QD, continue to monitor with goal to <120/80 * Telephone Encounter - Shannon Chung RN - 05/23/2019 3:34 PM EDT Jeannie called to give update of her BP. She has this taken once a week at [facility]. She states that it has been really good other than 05/22/19. Other BP has been in the 140s/70s. On 05/22: 164/85. She contributes this to having pneumonia, anxiety, and stress. PCP notified. documented in this encounter Plan of Treatment Not on file documented as of this encounter Visit Diagnoses Not on filedocumented in this encounter Care Teams Water Superintendent Relationship Specialty Start Date End Date Yisel Marroquin MD [address] [place] [address] PCP - General General Internal Medicine 03/06/1911/22 documented as of this encounter
--- OUTSIDE RECORDS SUMMARY | 2024-02-22 00:53 | XMS_ITS | Encounter Summary ---
Author Organization Formerly [facility] [place] [address] Care Team Providers Care Poker Room Manager Name Role Phone Hoang Castellanos APRN Primary Care Provider [phone] Encounter Details Date Type Department Care Team (Latest Contact Info) Description 12/26/2019 10:00 AM EDT TH Visit (TeleHealth) Primary Care at [facility] [address] [facility] [phone] Hoang Castellanos APRN [address] [facility] [place] [address] Benign essential hypertension; Type 2 diabetes mellitus without complication, without long-term current use of insulin; Hypothyroidism, unspecified type; Chronic obstructive pulmonary disease, unspecified COPD type [...] Progress Notes * Hoang Castellanos APRN - 12/26/2019 10:00 AM EDT Subjective: HPI: Jeannie Rico is a 59 y.o. female presenting to the [facility] HPI Mental health condition Dr. Vera and case briefer, Sherri Fuller-talked to them this morning Has a therapist and crisis team Feeling paranoid Not tolerating Zyprexa Planning to start on new medication, increasing antidepressant-Zoloft Taking Lamotrigine and Abilify No suicidal thoughts DM Did not get blood work done d/t covid pandemic Stress eating Only eating a meal once per day, snacking a lot Not getting out to exercise d/t back pain and paranoia Not checking BGs at home Foot swelling at times Has not had an eye exam in years Increased thirst, hunger, no increase in urination COPD/asthma/allergies Cough in the evening Still smoking-increased recently, up to 2 ppd No chest pain SOB with activity Ellipta inhaler helps Albuterol inhaler use 1-2 times per day Taking an antihistamine ROS: Review of Systems Objective: VS: LMP (LMP Unknown) Physical Exam Constitutional: General: She is awake. Neurological: Mental Status: She is alert. Psychiatric: Attention and Perception: Attention normal. Mood and Affect: Mood and affect normal. Speech: Speech normal. Behavior: Behavior is cooperative. Thought Content: Thought content normal. Assessment and Plan: Diagnoses and all orders for this visit: Benign essential hypertension Type 2 diabetes mellitus without complication, without long-term current use of insulin - Blood-Glucose Meter Misc; 1 each by Misc.(Non-Drug; Combo Route) route once for 1 dose. - blood sugar diagnostic strips Strip; Use as instructed test BG once daily - lancets 30 gauge Misc; 1 each by Misc.(Non-Drug; Combo Route) route daily. Hypothyroidism, unspecified type Chronic obstructive pulmonary disease, unspecified COPD type She is aware that she is due for labs and will consider doing labs tomorrow to review A1c, TSH, etc She is experiencing worsening paranoia d/t pandemic. She was encouraged to continue to work with therapist and psychiatrist regarding her concerns. They have adjusted medications. She was encouraged to get outside and take walks when she feels it is safe to do so. Discussed dietary modifications for management of DM. Will order glucometer so she can monitor BGs at home. Patient verbally consents to this telephone visit and understands that this visit may be billed, similar to a clinic office visit. I provided care to the patient today via telephone call. The total time associated with this visit was 30 minutes. There are no Patient Instructions on file for this visit. FOLLOWUP: Return in about 3 months (around 03/27/2020), or if symptoms worsen or fail to improve, forDM, HTN . documented in this encounter Plan of Treatment Not on file documented as of this encounter Visit Diagnoses Diagnosis Benign essential hypertension Essential hypertension, benign Type 2 diabetes mellitus without complication, without long-term current use of insulin Hypothyroidism, unspecified type Chronic obstructive pulmonary disease, unspecified COPD type documented in this encounter Care Teams Poker Room Manager Relationship Specialty Start Date End Date Hoang Castellanos APRN [address] [place] [address] PCP - General Family Medicine 12/07/19 03/11/20 documented as of this encounter
--- OUTSIDE RECORDS SUMMARY | 2024-02-22 00:53 | XMS_ITS | Encounter Summary ---
Author Organization [place] [address] Care Team Providers Care Behavioral Consultant Name Role Phone Yisel Marroquin MD Primary Care Provider [phone] Encounter Details Date Type Department Care Team (Late st Contact Info) Description 06/01/2019 Orders Only Primary Care at [facility] [address] [place] [phone] Devi Mccormick RN B12 deficiency Social History Tobacco Use Types [...] deficiencies documented in this encounter Care Teams Behavioral Consultant Relationship Specialty Start Date End Date Yisel Marroquin MD [address] [place] [address] PCP - General General Internal Medicine 03/06/1911/22 documented as of this encounter
--- OUTSIDE RECORDS SUMMARY | 2024-02-22 00:53 | XMS_ITS | Encounter Summary ---
[place] [address] Care Team Providers Care Product Development Manager Name Role Phone Hoang Castellanos APRN Primary Care Provider Encounter Details Date Type Department Care Team (Late st Contact Info) Description 01/02/2020 Telephone Primary Care at [facility] [place] [phone] Isadora Hidalgo LPN Social History Tobacco Use [...] Telephone Encounter - Isadora Hidalgo LPN - 01/02/2020 3:17 PM EDT Patient notify * Telephone Encounter - Isadora Hidalgo LPN - 01/02/2020 3:17 PM EDT ----- Message from Hoang Castellanos APRN sent at 01/01/2020 12:38 PM EDT ----- Please inform patient of normal lab results. Normal thyroid. A1c is stable at 6.0. documented in this encounter Plan of Treatment Not on file documented as of this encounter Visit Diagnoses Not on filedocumented in this encounter Care Teams Product Development Manager Relationship Specialty Start Date End Date Hoang Castellanos APRN [address] [place] [address] PCP - General Family Medicine 12/07/19 03/11/20 documented as of this encounter
--- OUTSIDE RECORDS SUMMARY | 2024-02-22 00:53 | XMS_ITS | Encounter Summary ---
Author Organization [facility] [place] [address] Care Team Providers Care Medical Case Manager Name Role Phone Hoang Castellanos APRN Primary Care Provider Reason for Visit * Reason Comments Follow-up Right intra-articula r distal radius and ulna fracture 02/04/20 Encounter Details Date Type Department Care Team (Late st Contact Info) Description 02/21/2020 11:30 AM EDT Office Visit Orthopaedics at [facility] [place] [address] Closed fracture of distal end of right [...] Weight 107.5 kg (236 lb 15.9 oz) 2019 12:02 PM EDT Height 163.8 cm (5' 4.49) 02/21/2020 1 2:02 PM EDT Body Mass Index 40.07 02/21/2020 12:02 PM EDT documented in this encounter Patient Instructions * Patient Instructions* Libertad Day - 02/21/2020 11:30 AM EDT Images from the original [...] encounter Progress Notes * Libertad Day - 02/21/2020 11:30 AM EDT History of Present Illness or Injury: Jeannie Rico is an 59 y.o. year old female, for treatment and evaluation of right intra-articular distal radius and ulna fracture 02/04/20. Patient reports she has done well in the cast. She is using tylenol and the CBD oil for pain. She states again she really does not want surgery. The cast was removed and I washed her arm with a warm wash cloth. REVIEW OF SYMPTOMS: Constitutional: Denies fever, chills, fatigue Cardiovascular: Denies chest pain Respiratory: Denies shortness of breath Gastrointestinal: Denies nausea, vomiting, diarrhea, constipation, or abdominal pain Neurovascular: no weakness, numbness or tingling Musculoskeletal: no pain, swelling, decreased ROM Psychiatric: Mood and affect appropriate Jeannie Rico presents to the cast room for a cast on per DR Hernandez . The patient's skin is intact. The patient is going into a well padded fiberglass short arm cast on the right side. The patient tolerated the procedure well. The patient was given instructions for cast care and was given instruction to call the clinic with any questions or concerns. She will follow up in 2 weeks for cast change. documented in this encounter Plan of Treatment Not on file documented as of this encounter Visit Diagnoses Diagnosis Closed fracture of distal end of right radius, unspecified fracture morphology, sequela documented in this encounter Care Teams Medical Case Manager Relationship Specialty Start Date End Date Hoang Castellanos, CHIEF QUALITY OFFICER [address] [place] [address] PCP - General Family Medicine 12/07/19 03/11/20 documented as of this encounter
--- OUTSIDE RECORDS SUMMARY | 2024-02-22 00:53 | XMS_ITS | Encounter Summary ---
[place] [address] Care Team Providers Care Microbiology Soil Scientist Name Role Phone Yisel Marroquin MD Primary Care Provider [phone] Encounter Details Date Type Department Care Team (Late st Contact Info) Description 06/01/2019 Telephone Primary Care at [facility] 10 [place] [phone] Devi Mccormick RN Social History Tobacco Use Types Packs/Day [...] Telephone Encounter - Yisel Marroquin MD - 06/06/2019 4:52 PM EST Can you check on this and make sure pt has what she needs? * Telephone Encounter - Devi Mccormick RN - 06/01/2019 4:43 PM EST Pts last OV was 05/04/19 with acute exacerbation asthma, and before that 04/11/19 for diabetes f/u( as well as htn.) 04/11/19 124/64 02/07/19 118/62 01/05/19 124/68 Note Last Prescription Fill Date: 06/12/2018 Number Dispensed and Refills: #18/11 Last Related Office Visit: 05/04/2019 Upcoming Appointment: 08/06/2019 ?? No flowsheet data found. ? Lab Results Component Value Date ?? HGB 14.0 09/11/2018 ?? HCT 42.7 09/11/2018 ?? CHLPL 134 (External Lab) 01/04/2018 ?? TRIG 154 (ExtH) 01/04/2018 ?? HDL 40 (External Lab) 01/04/2018 ?? LDLCHOL 63 (External Lab) 01/04/2018 ?? ALT 7 09/11/2018 ?? AST 13 09/11/2018 ?? NA 141 09/11/2018 ?? K 4.1 09/11/2018 ?? CL 101 09/11/2018 ?? CREATININE 0.83 09/11/2018 ?? TSH 2.125 (External Lab) 01/04/2018 ?? INR 1.0 04/16/2013 ?? HA1C 5.9 (H) 02/07/2019 ?? * Telephone Encounter - Devi Mccormick RN - 06/01/2019 4:04 PM EST Looking for refills, pt is nearly out of medication, the pharmacy has sent several electronic requests. documented in this encounter Plan of Treatment Not on file documented as of this encounter Visit Diagnoses Not on filedocumented in this encounter Care Teams Microbiology Soil Scientist Relationship Specialty Start Date End Date Yisel Marroquin MD 10 [place] [address] PCP - General General Internal Medicine 03/06/1911/22 documented as of this encounter
--- OUTSIDE RECORDS SUMMARY | 2024-02-22 00:53 | XMS_ITS | Encounter Summary ---
Author Organization [facility] [place] [address] Care Team Providers Care Stove Fitter Name Role Phone Hoang Castellanos APRN Primary Care Provider Reason for Visit * Reason Comments Follow-up Right intra-articula r distal radius and ulna fracture 02/04/20 Encounter Details Date Type Department Care Team (Late st Contact Info) Description 02/12/2020 10:15 AM EDT Office Visit Orthopaedics at [facility] [address] [facility] [place] [address] Talita Hernandez MD [address] [facility] [facility] [place] [address] Closed fracture of distal end of right [...] 107.5 kg (236 lb 15.9 oz) 2019 10:08 AM EDT Height 163.8 cm (5' 4.49) 02/07/2020 1 0:08 AM EDT Body Mass Index 40.07 02/07/2020 10:08 AM EDT documented in this encounter Patient Instructions * Patient Instructions* Libertad Day - 02/12/2020 10:15 AM EDT Images from the original note [...] encounter Progress Notes * Libertad Day - 02/12/2020 10:15 AM EDT [facility] Follow up Note History of Present Illness or Injury: Jeannie Rico is an 59 y.o. year old female being seen for treatment and evaluation of Right intra-articular distal radius and ulna fracture 02/04/20. Patient is in clinic for follow up for xray check. Sh does not desire surgery. She reports she is comfortable in the cast. The cast is intact. No numbness or tingling. She has equal sensation to light touch in all digits. Review of Systems Constitutional: Negative for chills, [...] three times a week. 36 tablet3 ??? simvastatin (Zocor) 40 mg Tablet Take [...] Take 75 mg by mouth nightly. ??? lancets 30 gauge Misc 1 each by Misc.(Non-Drug; Combo Route) route daily. (Patient not taking: Reported on 02/05/2020) 100 each 3 ??? prazosin (Minipress) 2 mg Capsule Take 3 capsules by mouth nightly. (Patient not taking: Reported on 01/08/2020) 84 each 11 No current facility-administered medications on file prior to visit. Visit Vitals Ht 163.8 cm (5' 4.49) Wt 107.5 kg (236 lb 15.9 oz) LMP (LMP Unknown) BMI 40.07 kg/m?? Dr Hernandez saw the patient with me. reviewed the xrays and Her alignment is good. Her cast is intact and not loose. She will follow up next week for cast change. documented in this encounter Plan of Treatment Not on file documented as of this encounter Visit Diagnoses Diagnosis Closed fracture of distal end of right radius, unspecified fracture morphology, sequela documented in this encounter Care Teams Stove Fitter Relationship Specialty Start Date End Date Hoang Castellanos, SAM [address] [place] [address] PCP - General Family Medicine 12/07/19 03/11/20 documented as of this encounter
--- OUTSIDE RECORDS SUMMARY | 2024-02-22 00:53 | XMS_ITS | Encounter Summary ---
[place] [address] Care Team Providers Care Solution Make Up Operator Name Role Phone Hoang Castellanos APRN Primary Care Provider Encounter Details Date Type Department Care Team (Latest Contact Info) Description 02/12/2020 10:00 AM EDT Ancillary Procedure Radiology XRay at the [facility] at [facility] [address] [facility] [place] [address] Talita Hernandez MD [address] [facility] [address] [place] [address] Other closed intra-articular fracture of distal end [...] Comments XR WRIST 2 VIEWS RIGHT Routine 02/12/2020 9:22 AM EDT Other closed intra-articular fracture of distal end of right radius, initial encounter documented in this encounter Results [...] encounter documented in this encounter Care Teams Solution Make Up Operator Relationship Specialty Start Date End Date Hoang Castellanos, SAM [address] [place] [address] PCP - General Family Medicine 12/07/19 03/11/20 documented as of this encounter
--- OUTSIDE RECORDS SUMMARY | 2024-02-22 00:53 | XMS_ITS | Encounter Summary ---
[place] [address] Care Team Providers Care Diesel Engine Mechanic Apprentice Name Role Phone Hoang Castellanos APRN Primary Care Provider Encounter Details Date Type Department Care Team (Late st Contact Info) Description 02/27/2020 Telephone Primary Care at [facility] [address] [place] [phone] Isadora Hidalgo LPN Social History Tobacco Use [...] Telephone Encounter - Hoang Castellanos APRN - 03/04/2020 3:00 PM EDT Done during visit. * Telephone Encounter - Isadora Hidalgo LPN - 02/27/2020 9:25 AM EDT Jeannie call to request for her appointment on the with RA to call Sherri [phone], Jeannie dobson to be part of the appointment documented in this encounter Plan of Treatment Not on file documented as of this encounter Visit Diagnoses Not on filedocumented in this encounter Care Teams Diesel Engine Mechanic Apprentice Relationship Specialty Start Date End Date Hoang Castellanos, SAM [address] [place] [address] PCP - General Family Medicine 12/07/19 03/11/20 documented as of this encounter
--- OUTSIDE RECORDS SUMMARY | 2024-02-22 00:53 | XMS_ITS | Encounter Summary ---
[place] [address] Care Team Providers Care Ship'S Surveyor Name Role Phone Hoang Castellanos APRN Primary Care Provider Encounter Details Date Type Department Care Team (Late st Contact Info) Description 02/18/2020 Telephone Primary Care at [facility] [address] [place] [phone] Hoang Castellanos APRN [address] [place] [address] Social History Tobacco Use Types Packs/Day Years [...] encounter Miscellaneous Notes * Telephone Encounter - Grace Lockhart - 02/21/2020 3:11 PM EDT [place] [facility] aware. They will DC the order. * Telephone Encounter - Isadora Hidalgo LPN - 02/21/2020 1:22 PM EDT Received another call from [facility] they want to know if we still working to try and get this patches for Jeannie they want an answer either way * Telephone Encounter - Grace Lockhart - 02/18/2020 2:44 PM EDT Lalit Bolton I received a call from [facility] about Jeannie's Lidocaine 5% patch. The insurance denied it (denial is under scanned docs) so they are wondering if this is just being canceled or if you were going to try something different? documented in this encounter Plan of Treatment Not on file documented as of this encounter Visit Diagnoses Not on filedocumented in this encounter Care Teams Ship'S Surveyor Relationship Specialty Start Date End Date Hoang Castellanos, BUILDING MAINTENANCE CUSTODIAN [address] [place] [address] PCP - General Family Medicine 12/07/19 03/11/20 documented as of this encounter
--- OUTSIDE RECORDS SUMMARY | 2024-02-22 00:53 | XMS_ITS | Encounter Summary ---
[place] [address] Care Team Providers Care Thoroughbred Horse Farm Manager Name Role Phone Yisel Marroquin MD Primary Care Provider [phone] Encounter Details Date Type Department Care Team (Late st Contact Info) Description 08/24/2019 Orders Only Primary Care at [facility] [address] [place] [phone] Meli Jaimes RN Social History Tobacco Use [...] on filedocumented in this encounter Care Teams Thoroughbred Horse Farm Manager Relationship Specialty Start Date End Date Yisel Marroquin MD [address] [place] [address] PCP - General General Internal Medicine 03/06/1911/22 documented as of this encounter
--- OUTSIDE RECORDS SUMMARY | 2024-02-22 00:53 | XMS_ITS | Encounter Summary ---
Author Organization [facility] [place] [address] Care Team Providers Care Baling Machine Operator Name Role Phone Hoang Castellanos APRN Primary Care Provider Reason for Referral * Consultation (Routine) - Specialty Diagnoses / Procedures Referred By Contdavide t Referred To Contact Orthopaedics Diagnoses Closed fracture of distal end of right radius, unspecified fracture morphology, initial encounter Hoang Castellanos APRN [address] [place] [address] [facility] [place] [address] Referral ID Status Reason Start Date Expiration Date Visits Requested Visits Authorized [id number] Specialty Service Requested 02/05/2020 02/04/2021 6 6 * Diagnostic Test (Routine) - Closed Specialty Diagnoses / Procedures Referred By Contac t Referred To Contact Radiology Diagnoses Chronic right-sided low back pain with right-sided sciatica Procedures MRI Lumbar Spine wo Contrast (Generic) Hoang Castellanos APRN [address] [facility] [place] [address] [facility] Rad Mri [address] [place] [address] Referral ID Status Reason Start Date Expiration Date V isits Requested Visits Authorized [id number] Closed Specialty Service Requested 02/05/2020 08/07/2021 1 1 Reason for Visit * Reason Comments Diabetes Hypertension Right Arm Pain Encounter Details Date Type Department Care Team (Late st Contact Info) Description 02/05/2020 11:30 AM EDT Office Visit [facility] at [facility] [address] [facility] [place] [address] Hoang Castellanos, SAM [address] [facility] [place], [place] [id number] Closed fracture of distal end of right radius, unspecified fracture morphology, initial encounter (Primary Dx); Chronic right-sided low back pain with right-sided sciatica; Type 2 diabetes mellitus without complication, without long-term current use of insulin; Benign essential hypertension Social History Tobacco Use [...] Time Taken Comments Blood Pressure 100/60 02/05/2020 11:28 AM EDT Pulse 57 02/05/2020 11:28 AM EDT Temperature - - Respiratory Rate 14 02/05/2020 11:28 AM EDT Oxygen Saturation 94% 02/05/2020 11:28 AM EDT Inhaled Oxygen Concentration - - Weight 107.5 kg (237 lb) 02/05/2020 11:28 AM EDT Height 163.8 cm (5' 4.5) 02/05/2020 11:28 AM ED T Body Mass Index 40.05 02/05/2020 11:28 AM EDT documented in this encounter Progress Notes * Hoang Castellanos, SAM - 02/05/2020 11:30 AM EDT Subjective: HPI: Jeannie Rico is a 59 y.o. female presenting to the [facility] HPI Patient presents today to meet RICH Montalvo for the first time. Patient also states she fell in her garden yesterday pulling up black eyed corina's and landed on my arm, I don't know if itsbroken or sprained. Patient states she has been having really bad dizziness Her caregiver - emotional support person states like vertigo. Patient states it's like room spinning She state this has been going on since the last time she saw Dr. Marroquin. She states this is all the time. Worse upon standing up, or if standing up too long right leg will give out Leg feels like it freezes then unable to walk on it Has had back pain, SI joint pain-right sided Sharp pain down leg, then just gives out, not numb/tingly Using cane all the time MRI c-spine 04/2009 MRI lumbar 2012 Functional quaker program had helped but that was prior to having dizziness THC/CBD to manage pain Previously did injections which did not help COPD Inhalers helping Still smoking-would like to quit-has used patches, time restricting methods to decrease use Fell down yesterday-right arm is painful Landed on her wrist when she fell Using a wrist splint THC helping with pain Bruising on underside 1. Type 2 diabetes mellitus without complication, without long-term current use of insulin. Is patient checking sugars at home? Patient does not check her sugars at home. Last 3 Hemoglobin A1Cs Lab Results Component Value Date HA1C 6.0 (H) 01/01/2020 HA1C 5.9 (H) 02/07/2019 HA1C 5.6 (External Lab) 01/04/2018 2. Benign essential hypertension Lisinopril 10 mg Metoprolol 25 mg Is patient checking blood pressure at home? Patient does not check her blood pressure at home. Lab Results Component Value Date NA 136 01/01/2020 K 4.7 01/01/2020 CL 97 (L) 01/01/2020 CO2 28 01/01/2020 BUN 14 01/01/2020 CREATININE 0.90 01/01/2020 GLUCOSE 105 01/01/2020 CALCIUM 9.6 01/01/2020 ESTGFR 70 01/01/2020 ROS: Review of Systems Objective: VS: BP 100/60 Pulse 57 Resp 14 Ht 163.8 cm (5' 4.5) Wt 107.5 kg (237 lb) LMP (LMP Unknown) SpO2 94% BMI 40.05 kg/m?? Physical Exam Vitals signs reviewed. Constitutional: [...] Breath sounds: Normal breath sounds. Musculoskeletal: Right elbow: No radial head tenderness noted. Right wrist: She exhibits decreased range of motion, tenderness, bony tenderness and swelling (ecchymosis). Lumbar back: She exhibits tenderness (pos right straight leg raise) and bony tenderness. She exhibits normal range of motion. Right lower leg: No [...] and Plan: Jeannie was seen today for diabetes, hypertension and right arm pain. Diagnoses and all orders for this visit: Closed fracture of distal end of right radius, unspecified fracture morphology, initial encounter - XR Forearm Right (Generic); Future - Referral to Orthopaedics - XR Wrist 2 views Right; Future - Splint Application; Future Chronic right-sided low back pain with right-sided sciatica - lidocaine (LIDODERM) 5 % Adhesive Patch, Medicated; Place 1 patch onto affected area for 12 hoursthen remove for 12 hours - MRI Lumbar Spine wo Contrast (Generic); Future Type 2 diabetes mellitus without complication, without long-term current use of insulin Benign essential hypertension - lisinopriL (Prinivil;Zestril) 10 mg Tablet; Take 1 tablet by mouth daily. Displaced distal radius fracture on XR-stat Ortho eval-will obtain additional images of wrist and they will provide a sugar tong splint to go home in. Chronic right sided low back pain with intermittent pain down RLE, reporting right LE weakness. Shehad an MRI in 2012 demonstrating small disc protrusion at L5-S1. Will update MRI with worsening/progressive sx, pos straight leg raise. Will try to get lidocaine patches covered. DM-stable, A1c 6.0 HTN-well controlled, low BP in the office-will reduce Lisinopril from 15mg to 10mg daily d/t dizziness which may be d/t hypotension. There are no Patient Instructions on file for this visit. FOLLOWUP: Return in about 4 weeks (around 03/04/2020) for dizziness, HTN, back pain . documented in this encounter Plan of Treatment Scheduled Referrals Name Type Priority Associated Diagnoses Orde r Schedule Referral to Orthopaedics Outpatient Referral Routine Closed fracture of distal end of right radius, unspecified fracture morphology, initial encounter Ordered: 02/05/2020 documented as of this encounter Results * MRI Lumbar Spine [...] the clinical situation (Reference- Sugark Et Al, Spine 2001). Findings: (Prevalence in [...] below. ? Electronically signed by: Bandar Tejeda [facility] ([phone]), at 02/19/2020 10:08 AM Narrative 02/19/2020 10:08 AM EDT EXAMINATION: MRI [...] the clinical situation (Reference- Sugark Et Al, [id number]). Findings: (Prevalence in patients without low back pain), discdegeneration (decreased T2 signal, height loss, bulge) (91%), disc T2-signal loss(83%), disc height loss (56%), disc bulge (64%), disc protrusion (32%), annularfissure (38%). Thank you for letting us participate in the care of this patient. Forquestions regarding this report, please contact the number below. Electronically signed by: Bandar Tejeda [facility]([phone]), at 02/19/2020 10:08 AM Hoang Castellanos APRN IMG MRI ORDERABLES * XR Wrist 2 views Right (02/05/2020 [...] below. ? Electronically signed by: Flory Bedoya [facility] ([phone]), at 02/05/2020 1:43 PM Narrative 02/05/2020 1:43 [...] please contact the number below. Hoang Castellanos SENIOR CONTRACT SPECIALIST IMG DX ORDERABLES * XR Forearm Right (Generic) (02/05/2020 12:29 [...] below. ? Electronically signed by: Flory Bedoya [facility] ([phone]), at 02/05/2020 12:53 PM Narrative 02/05/2020 12:53 [...] of right radius, unspecified fracture morphology, initial encounter- Primary Chronic right-sided low back pain with right-sided sciatica Type 2 diabetes mellitus without complication, without long-term current use of insulin Benign essential hypertension Essential hypertension, benign Right forearm pain Pain in limb Closed fracture of distal end of right radius, unspecified fracture morphology, initial encounter Chronic right-sided low back pain with right-sided sciatica documented in this encounter Care Teams Baling Machine Operator Relationship Specialty Start Date End Date Hoang Castellanos APRN [address] [place] [address] PCP - General Family Medicine 12/07/19 03/11/20 documented as of this encounter
--- OUTSIDE RECORDS SUMMARY | 2024-02-22 00:53 | XMS_ITS | Encounter Summary ---
Author Organization [facility] [place] [address] Care Team Providers Care Photo Manager Name Role Phone Yisel Marroquin MD Primary Care Provider [phone] Reason for Visit * Reason Comments Medication Refill Encounter Details Date Type Department Care Team (Late st Contact Info) Description 10/29/2019 Refill [facility] at [facility] [address] [place] [phone] Yisel Marroquin MD [address] [place] [address] Gastroesophageal reflux disease, esophagitis presence not specified Social History Tobacco Use Types Packs/Day Years [...] Telephone Encounter - Lis Rossi CMA - 10/29/2019 4:21 PM EDT OMEPRAZOLE 20 MG: Last Prescription Fill Date: 10/03/2019 Number Dispensed and Refills: 56/ Last Related Office Visit: 09/24/2019 Upcoming Appointment: [...] Gastroesophageal reflux disease, esophagitis presence not specified documented in this encounter Care Teams Photo Manager Relationship Specialty Start Date End Date Yisel Marroquin MD [address] [place] [address] PCP - General General Internal Medicine 03/06/1911/22 documented as of this encounter
--- OUTSIDE RECORDS SUMMARY | 2024-02-22 00:53 | XMS_ITS | Encounter Summary ---
[place] [address] Care Team Providers Care Stock Mover Name Role Phone Hoang Castellanos APRN Primary Care Provider [phone] Encounter Details Date Type Department Care Team (Late st Contact Info) Description 02/26/2020 Telephone Primary Care at [facility] 10 [place] [phone] Devi Mccormick RN Social History Tobacco Use [...] Telephone Encounter - Isadora Hidalgo LPN - 02/26/2020 3:46 PM EDT Spoke with patient with results of MRI, appointment for 03/04 for f/u with RA * Telephone Encounter - Devi Mccormick RN - 02/26/2020 3:19 PM EDT ----- Message from Hoang Castellanos APRN sent at 02/26/2020 2:30 PM EDT ----- Please inform patient of MRI results. Mild degeneration (wear and tear), but no nerve root impingement. Recommend P.T. if she is interested. documented in this encounter Plan of Treatment Not on file documented as of this encounter Visit Diagnoses Not on filedocumented in this encounter Care Teams Stock Mover Relationship Specialty Start Date End Date Hoang Castellanos APRN [address] [place] [address] PCP - General Family Medicine 12/07/19 03/11/20 documented as of this encounter
--- OUTSIDE RECORDS SUMMARY | 2024-02-22 00:53 | XMS_ITS | Encounter Summary ---
Author Organization [facility] [place] [address] Care Team Providers Care Temperature Logging Operator Name Role Phone Yisel Marroquin MD Primary Care Provider [phone] Reason for Visit * Reason Comments Medication Refill Encounter Details Date Type Department Care Team (Late st Contact Info) Description 07/20/2019 [facility] [place] [phone] Yisel Marroquin MD 10 [place] [address] Social History Tobacco Use Types Packs/Day Years [...] Telephone Encounter - Meli Velez RN - 07/20/2019 4:09 PM EST Ibuprofen Last Prescription Fill Date: 10/19/2018 Number Dispensed and Refills: #90, 0 refills Last Related Office Visit: 05/04/2019 Upcoming Appointment: [...] on filedocumented in this encounter Care Teams Temperature Logging Operator Relationship Specialty Start Date End Date Yisel Marroquin MD 10 [facility] [place] [address] PCP - General General Internal Medicine 03/06/1911/22 documented as of this encounter
--- OUTSIDE RECORDS SUMMARY | 2024-02-22 00:53 | XMS_ITS | Encounter Summary ---
Author Organization [facility] [place] [address] Care Team Providers Care Supervisor Winding Department Name Role Phone Hoang Castellanos APRN Primary Care Provider [phone] Encounter Details Date Type Department Care Team (Latest Contact Info) Description 01/01/2020 8:30 AM EDT Laboratory Appointment Laboratory at [facility] [place] [phone] Essential hypertension; Type 2 diabetes mellitus without complication, without long-term current use of insulin; Hypothyroidism, acquired Social History Tobacco Use Types Packs/Day Years [...] Priority Date/Time Associated Diagnosis Comments HEMOGRAM Routine 01/01/2020 8:33 AM EDT Essential hypertension DIFFERENTIAL, AUTOMATED Routine 01/01/2020 8:33 AM EDT Essential hypertension HC CBC,PLT & AUTO DIFF Routine 01/01/2020 8:33 AM EDT Essential hypertension HC THYROID STIMULATING HORMONE, SERUM Routine 01/01/2020 8:33 AM EDT Hypothyroidism, acquired HC HEMOGLOBIN A1C Routine 01/01/2020 8:3 3 AM EDT Type 2 diabetes mellitus without complication, without long-term current use of insulin COMPREHENSIVE METABOLIC PANEL (NON-FASTING) Routine 01/01/2020 8:33 AM EDT Essential hypertension documented in this encounter Results * TSH (01/01/2020 8:33 AM EDT) TSH 1.53 0.27 - 4.20 mcIU/mL [facility] Blood specimen (specimen) 01/01/2020 8:33 AM EDT 01/01/2020 11:13 AM EDT Narrative Resulting Agency Comment Spec In Lab / APD Hoang Castellanos MOBILE DEVELOPER CHEMISTRY ORDERABLES Performing Organization Address City/State/[facility] Co de Phone Number [facility] [address] [place] [address] * Differential, Automated (01/01/2020 8:33 AM EDT) Neutrophils % 70.8 % [facility] Neutr Abs (ANC) 5.87 1.70 - 6.10 x10(3)/mcL [facility] Lymphocytes % 19.6 % [facility] Lymphocytes Abs 1.6 0.9 - 3.2 x10(3)/mcL [facility] Monocytes % 8.3 % [facility] Monocyte Abs 0.7 0.3 - 0.9 x10(3)/mcL [facility] Eosinophils % 0.6 % [facility] Eosinophils Abs 0.0 0.0 - 0.4 x10(3)/mcL [facility] Basophils % 0.6 % [facility] Basophils Abs 0.0 0.0 - 0.1 x10(3)/mcL [facility] Immature Gran % 0.10 % [facility] Comment: Immature granulocytes(IG's)percentage and absolute count will include metamyelocytes, myelocytes, and promyelocytes. Blood smears from CBCs yielding IG's will be scanned manually for concordance. If this scan disagrees with the automated IG or if promyelocytes are noted, a manual differential will be performed. Fartun Gran Abs 0.01 0.00 - 0.04 x10(3)/mcL [facility] Blood specimen (specimen) 01/01/2020 8:33 AM EDT 01/01/2020 11:11 AM EDT Narrative Resulting Agency Comment Spec In Lab / APD Hoang Castellanos APRN HEMATOLOGY ORDERABLE S Performing Organization Address City/[facility] Co de Phone Number [facility] [address] [place] [address] * (ABNORMAL) Hemogram (01/01/2020 8:33 AM EDT) WBC 8.3 4.0 - 9.5 x10(3)/mcL [facility] RBC 4.62 4.00 - 5.21 x10(6[facility] Hemoglobin 13.9 11.7 - 15.5 gm/dL [facility] Hematocrit 44.3 35.7 - 45.8 % [facility] MCV 95.9(H) 82.6 - 94.4 fL [facility] MCH 30.1 27.1 - 32.0 pg [facility] MCHC 31.4(L) 31.7 - 35.0 gm/dL [facility] Platelets 268 145 - 357 x10(3)/[facility] RDWSD 50.6(H) 37.0 - 46.0 fL [facility] RDWCV 14.1 11.5 - 14.1 % [facility] MPV 10.0 7.6 - 12.9 fL [facility] Blood specimen (specimen) 01/01/2020 8:33 AM EDT 01/01/2020 11:11 AM EDT Narrative Resulting Agency Comment Spec In Lab / APD Hoang Castellanos APRN HEMATOLOGY ORDERABLE S Performing Organization Address City/State/[facility] Co de Phone Number [facility] [address] [facility] [place] [address] * (ABNORMAL) Hemoglobin A1c (01/01/2020 8:33 AM EDT) Pathologist [facility] Hemoglobin A1C 6.0(H) 4.3 - 5.6 % LABORATORY Est Avg Gluc 126 mg/dL [facility] Blood specimen (specimen) 01/01/2020 8:33 AM EDT 01/01/2020 11:11 AM EDT Narrative Resulting Agency Comment Spec In Lab / APD Hoang Castellanos MOBILE DEVELOPER CHEMISTRY ORDERABLES Performing Organization Address [facility] Co de Phone Number [facility] [address] [facility] [place] [address] * (ABNORMAL) Comprehensive metabolic panel (non-fasting) (01/01/2020 8:33 AM EDT) Pathologist [facility] Glucose Lvl 105 65 - 199 mg/dL [...] of body mass or the acutely ill. [email or web address] STIGLERPipeline [employer] eGFR 81 >=60 mL/min/1. 73 m?? LABORATORY Comment: The eGFR was calculated using the CKD-EPI equation. As with all creatinine based estimates of kidney function, eGFR values calculated with the CKD-EPI equation are not accurate in patients with acute kidney failure, extremes of body mass or the acutely ill. [email or web address] STIGLERnkf Blood specimen (specimen) 01/01/2020 8:33 AM EDT 01/01/2020 11:13 AM EDT Narrative Resulting Agency Comment Spec In Lab / APD Hoang Castellanos APRN CHEMISTRY ORDERABLES LABORATORY 10 [place] [address] documented in this encounter Visit Diagnoses Diagnosis Essential hypertension Unspecified essential hypertension Type 2 diabetes mellitus without complication, without long-term current use of insulin Hypothyroidism, acquired Unspecified hypothyroidism documented in this encounter Care Teams Supervisor Winding Department Relationship Specialty Start Date End Date Hoang Castellanos APRN [address] [place] [address] PCP - General Family Medicine 12/07/19 03/11/20 documented as of this encounter
--- OUTSIDE RECORDS SUMMARY | 2024-02-22 00:53 | XMS_ITS | Encounter Summary ---
Author Organization [facility] [place] [address] Care Team Providers Care Wet Mix Operator Name Role Phone Hoang Castellanos APRN Primary Care Provider Encounter Details Date Type Department Care Team (Late st Contact Info) Description 12/28/2019 Notes Only Primary Care at [facility] [address] [place] [phone] Isadora Hidalgo LPN Social History Tobacco Use [...] on filedocumented in this encounter Care Teams Wet Mix Operator Relationship Specialty Start Date End Date Hoang Castellanos APRN [address] [facility] [place] [address] PCP - General Family Medicine 12/07/19 03/11/20 documented as of this encounter
--- OUTSIDE RECORDS SUMMARY | 2024-02-22 00:54 | XMS_ITS | Encounter Summary ---
Author Organization [place] [address] Care Team Providers Care Wire Coiler Machine Operator Name Role Phone Yisel Marroquin MD Primary Care Provider [phone] Reason for Visit * Reason Comments Follow-up Encounter Details Date Type Department Care Team (Late st Contact Info) Description 04/11/2019 11:30 AM EDT Office Visit Primary Care at [facility] [address] [place] [phone] Yisel Marroquin MD [address] [place] [address] Routine history and physical examination of adult; Age-related osteoporosis without current pathological fracture Social [...] Sign Reading Time Taken Comments Blood Pressure 124/64 04/11/2019 11:20 AM EDT Pulse 58 04/11/2019 11:20 AM EDT Temperature - - Respiratory Rate - - Oxygen Saturation 97% 04/11/2019 11: 20 AM EDT Inhaled Oxygen Concentration - - Weight 104.2 kg (229 lb 12.8 oz) 2018 11:20 AM EDT Height 162 cm (5' 3.78) 04/11/2019 11: 20 AM EDT Body Mass Index 39.72 04/11/2019 11:20 AM EDT documented in this encounter Patient Instructions * Patient Instructions* Yisel Marroquin MD - 04/11/2019 11:30 AM EDT Images from the original note were not included. Try to take your blood pressure at least once per week. Goal around 130/80 not too much higher or lower. You can try [facility] sinus rinses or saline spray for nose, use a q-tip with a little vaseline to protect the inside and prevent. Keep up with your fiber intake- you can use metamucil daily as well. Patient Education Colon Cancer Screening: Care Instructions Your Care Instructions Colorectal cancer occurs in the colon or rectum. That's the lower part of your digestive system. Itis the second-leading cause of cancer deaths in the [place]. It often starts with small growths called polyps in the colon or rectum. Polyps are usually found with screening tests. Depending onthe type of test, any polyps found may be removed during the tests. Colorectal cancer usually does not cause symptoms at first. But regular tests can help find it early, before it spreads and becomes harder to treat. Your risk for colorectal cancer gets higher as you get older. Some experts say that adults should start regular screening at age 50 and stop at age 75. Others say to start before age 50 or continue after age 75. Talk with your doctor about your risk and when to start and stop screening. You may have one of several tests. Follow-up care is a ramírez part of your treatment and safety. Be sure to make and go to all appointments, and call your doctor if you are having problems. It's also a good idea to know your test resultsand keep a list of the medicines you take. What are the main screening tests for colon cancer? ?? Stool tests. These include the fecal immunochemical test (FIT) and the fecal occult blood test (FOBT). These tests check stool samples for signs of cancer. If your test is positive, you will need to have a colonoscopy. ?? Sigmoidoscopy. This test lets your doctor look at the lining of your rectum and the lowest part of your colon. Your doctor uses a lighted tube called a sigmoidoscope. This test can't find cancers or polyps in the upper part of your colon. In some cases, polyps that are found can be removed. But if your doctor finds polyps, you will need to have a colonoscopy to check the upper part of your colon. ?? Colonoscopy. This test lets your doctor look at the lining of your rectum and your entire colon.The doctor uses a thin, flexible tool called a colonoscope. It can also be used to remove polyps orget a tissue sample (biopsy). What tests do you need? The following guidelines are for adults who are not at high risk for colorectal cancer. You may have at least one of these tests as directed by your doctor. ?? Fecal immunochemical test (FIT) or guaiac fecal occult blood test (gFOBT) every year ?? Sigmoidoscopy every 5 years ?? Colonoscopy every 10 years If you are over age 75, you can work with your doctor to decide if screening is a good option. Talk with your doctor about when you need to be tested. And discuss which tests are right for you. Your doctor may recommend earlier or more frequent testing if you: ?? Have had colorectal cancer before. ?? Have had colon polyps. ?? Have symptoms of colorectal cancer. These include blood in your stool and changes in your bowel habits. ?? Have a parent, brother or sister, or child with colon polyps or colorectal cancer. ?? Have a bowel disease. This includes ulcerative colitis and Crohn's disease. ?? Have a rare polyp syndrome that runs in families, such as familial adenomatous polyposis (FAP). ?? Have had radiation treatments to the belly or pelvis. When should you call for help? Watch closely for changes in your health, and be sure to contact your doctor if: ? You have any changes in your bowel habits. ? You have any problems. Where can you learn more? Visit our health information library at [email or web address]. You can also view health information on [employer], your personal patient account. Log in or sign uptoday. Enter M541 in the search box to learn more about Colon Cancer Screening: Care Instructions. Current as of: July 12, 2018 Content Version: 12.1 ?? [id number] [employer]. Care instructions adapted under license by [facility]. If you have questions about a medical condition or this instruction, always ask your healthcare professional. [employer] disclaims any warranty or liability for your use of this information. documented in this encounter Progress Notes * Yisel Marroquin MD - 04/11/2019 11:30 AM EDT Images from the original note were not included. Subjective: Patient ID: Jeannie Rico is a 58 y.o. female. HPI Diabetes Follow-up: She does not check her blood sugars at home. She is not prescribed insulin. She is on no medications. She has been trying to follow a carbohydrate controlled diet. Her dietary downfall pastas, wraps, and rice because it is cheaper and that is what she is given. She does drink sweetened beverages, occasional ice coffee, stopped drinking Pepsis 3-4 a week. She states she exercises regularly, not as active outside but does yoga every night. Last 3 Hemoglobin A1Cs Lab Results Component Value Date HA1C 5.9 (H) 02/07/2019 HA1C 5.6 (External Lab) 01/04/2018 HA1C 6.3 (ExtH) 02/07/2017 HYPERTENSION: She has not been checking her blood pressure at home. She does take her blood pressure medicine on a regular basis. She is following a low salt diet. BP Readings from Last 3 Encounters: 04/11/19 124/64 02/07/19 118/62 01/05/19 124/68 Wt Readings from Last 3 Encounters: 04/11/19 104.2 kg (229 lb 12.8 oz) 02/07/19 101.9 kg (224 lb 9.6 oz) 01/05/19 101 kg (222 lb 10.6 oz) TODAY's Concerns: Allergies - congestion, runny nose, and cough at night Has been dizzy lately- she has been having this worse with allergies the past 2- 3 days. Constipation- uses laxative when she gets bad. Does not really eat any fiber in her diet. Smoking: She is not really able to cut back right now. REVIEW OF SYSTEMS 04/11/2019 Constitutional Weakness, Fatigue, lack of energy, Fever or chills, Pain Ear / nose / throat / mouth Hearing difficulty, Dry mouth, Difficulty swallowing, Sore throat Eyes Blurry vision, Double vision, Dry eyes Respiratory Cough Cardiovascular - Gastrointestinal Trouble swallowing, Constipation, Feeling bloated Skin, hair Dry skin Musculoskeletal Back pain, Muscle stiffness Neurological Balance difficulty, dizziness, Headaches, Muscular weakness Hematologic / Lymphatic Easy bruising or bleeding Genitourinary None of the above Objective: Physical Exam Gen: Awake, alert, oriented, no distress, obese white female, sample case porter at side HEENT: Dry mucus membranes. CV: Regular rate and rhythm, S1/S2 normal, no extra sounds noted. Pulm: Clear to auscultation bilaterally, no crackles or wheezing. Abdominal: BS+, non-distended, non-tender, no masses noted. Extremities: Warm, posterior tibial, dorsalis pedis pulses 2+ bilaterally. Neuro: Normal speech, moving all extremities equally. Psych: Normal Mood and affect Skin: no concerning or new lesions on exposed skin. BP 124/64 (BP Location (NBP): Left arm, Patient Position: Sitting) Pulse 58 Ht 162 cm (5' 3.78) Wt 104.2 kg (229 lb 12.8 oz) SpO2 97% BMI 39.72 kg/m?? Lab Results Component Value Date WBC [...] Lab) 01/04/2018 Assessment and Plan: 58 y/o M with PMHx Smoking, chronic pain, DM presents for follow up also has a rash today. Discussed her DEXA, would benefit from treatment, will start weekly pills in her pill pack. Hypotension: giving dizziness, we are lowering her ACEI and imdur and watch for effect, if needed can also lower prazosin. Encouraged to keep working on her DM. Problem List Items Addressed This Visit Osteoporosis Relevant Medications alendronate (FOSAMAX) 70 mg Tablet Other Visit Diagnoses Routine history and physical examination of adult Relevant Orders Mammo Screening Cad and Garret Bilateral Your Medications Accurate as of April 11, 2019 1:36 PM. If you have any questions, ask your nurse or doctor. New Medications Dose Details alendronate 70 mg Tab Commonly known as: FOSAMAX Take 1 tablet by mouth every 7 days. Take in AM with full glass of water, on an empty stomach. Do not lie down for 30 min. Started by: Yisel Marroquin MD 70 mg Quantity: 52 tablet Refills: 0 isosorbide mononitrate 30 mg Tablet sr Commonly known as: IMDUR Take 1 tablet by mouth daily. Started by: Yisel Marroquin MD 30 mg Quantity: 90 tablet Refills: 3 Continued medications with new dosing Dose Details lisinopril 10 mg Tab Commonly known as: PRINIVIL;ZESTRIL Take 1 tablet by mouth daily. What changed: ?? medication strength ?? how much to take Changed by: Yisel Marroquin MD 10 mg Quantity: 90 tablet Refills: 3 Continued medications, unchanged Dose Details ACIDOPHILUS Cap TAKE TWO (2) CAPSULES BY MOUTH TWICE A DAY Generic drug: lactobacillus Quantity: 112 capsule Refills: 5 ADVAIR DISKUS 500-50 mcg/dose Dsdv 1 Disk(s), Inh, Twice daily Generic drug: fluticasone propion-salmeterol Refills: 0 aspirin 81 mg Tbec Take 1 tablet by mouth daily. 81 mg Quantity: 28 tablet Refills: 5 cholecalciferol (Vitamin D3) 2,000 unit Tab Take 1 tablet by mouth daily. 2,000 Units Quantity: 28 tablet Refills: 5 clopidogrel 75 mg Tab Commonly known as: PLAVIX Take 1 tablet by mouth daily. 75 mg Quantity: 30 tablet Refills: 6 cyanocobalamin (vitamin B-12) 1,000 mcg Tab Commonly known as: VITAMIN B-12 Take 1 tablet by mouth once a week. 1,000 mcg Quantity: 4 tablet Refills: 5 ibuprofen 600 mg Tab Commonly known as: ADVIL;MOTRIN Take 600 mg by mouth 2 times daily as needed for Pain. Indications: up to two times per day as needed 600 mg Refills: 0 lamoTRIgine 200 mg Tab Commonly known as: LaMICtal Take 200 mg by mouth daily. 200 mg Refills: 0 levothyroxine 50 mcg Tab Commonly known as: SYNTHROID 50MCG, PO, Once daily Refills: 0 MARIJUANA ORAL Take by mouth. Refills: 0 metoprolol succinate 25 mg Tablet sr Commonly known as: TOPROL-XL Take 0.5 tablets by mouth daily. 12.5 mg Quantity: 30 tablet Refills: 3 omeprazole 20 mg Cpdr Commonly known as: PriLOSEC Take 1 capsule by mouth 2 times daily for 180 days. Take 30 minutes before breakfast and in the evening 20 mg Quantity: 180 capsule Refills: 1 prazosin 2 mg Cap Commonly known as: MINIPRESS Take 6 mg by mouth nightly. 6 mg Refills: 0 * albuterol 2.5 mg /3 mL (0.083 %) Nebu Commonly known as: PROVENTIL Take 2.5 mg by nebulization every 4 hours as needed for Wheezing. Indications: Only use as needed 2.5 mg Refills: 0 * PROAIR HFA 90 mcg/actuation Hfaa Inhale 2 puffs into the lungs every 4 hours as needed. Use with spacer Generic drug: albuterol 2 puff Refills: 0 sertraline 50 mg Tab Commonly known as: ZOLOFT Take 50 mg by mouth daily. 50 mg Refills: 0 simvastatin 40 mg Tab Commonly known as: ZOCOR Take 1 tablet by mouth nightly. 40 mg Quantity: 90 tablet Refills: 3 SPIRIVA RESPIMAT 2.5 mcg/actuation Mist Inhale 2 puffs into the lungs nightly. Generic drug: tiotropium bromide 2 puff Refills: 0 * tiZANidine 2 mg Tab Commonly known as: ZANAFLEX Refills: 0 * tiZANidine 4 mg Tab Commonly known as: ZANAFLEX Take 1 tablet by mouth 3 times daily. 4 mg Quantity: 60 tablet Refills: 3 traZODone 150 mg Tab Commonly known as: DESYREL Take 150 mg by mouth nightly. 150 mg Refills: 0 * This list has 4 medication(s) that are the same as other medications prescribed for you. Read thedirections carefully, and ask your doctor or other care provider to review them with you. Yisel Marroquin MD documented in this encounter Plan of Treatment Not on file documented as of this encounter Visit Diagnoses Diagnosis Routine history and physical examination of adult Routine general medical examination at a [facility] care facility Age-related osteoporosis without current pathological fracture Senile osteoporosis documented in this encounter Care Teams Wire Coiler Machine Operator Relationship Specialty Start Date End Date Yisel Marroquin MD [address] [place] [address] PCP - General General Internal Medicine 03/06/1911/22 documented as of this encounter
--- OUTSIDE RECORDS SUMMARY | 2024-02-22 00:54 | XMS_ITS | Encounter Summary ---
[place] [address] Care Team Providers Care Supply Chain Vice President Name Role Phone Yisel Marroquin MD Primary Care Provider [phone] Encounter Details Date Type Department Care Team (Late st Contact Info) Description 01/04/2019 Telephone Primary Care at [facility] [address] [place] [phone] Shannon Cruz, RN Social History Tobacco Use [...] Telephone Encounter - Shannon Cruz RN - 01/05/2019 9:20 AM EDT Patient booked for rash. Pt was insistant of being put back on omeprazole. Discussed with PCP and she needs to talk to cardiology/GI and PCP does not feel comfortable prescribing. * Telephone Encounter - Yisel Marroquin MD - 01/04/2019 6:04 PM EDT Hi Shannon, Let's make sure she knows the pantoprazole is a REPLACEMENT for her omprazole and she should not take them at the same time. Omeprazole has an interaction with her other meds (plavix). Also, yes, she should come in for the rash. If she just wants a quick look at the rash I am ok for her to be double booked tomorrow (but we won't have time to go over other issues unfortunately). Yisel Marroquin MD * Telephone Encounter - Shannon Cruz RN - 01/04/2019 4:13 PM EDT Jeannie called saying that she has a really bad rash on back for a while and wants PCP asked what itis. She reports that it is itchy. It started itching 3 weeks ago, there 3 round circles together. states it looks like pimples with scratch holland. Pt states that she does get dry skin on herback and she has had shingles. The three round circles are in the iddle of back going to right side. States that it is not painful. PCP notified. She also states that Sidra Del Toro APRN changed her medication and she wants a refill of her omeprazole. Per note in 11/22/18 from Sidra Del Toro: It was good to see you and Dorcas! I sent in a new heartburn prescription medication- pantoprazole twice a day, which is less likely to interfere with the plavix. Discontinue the omeprazole once you get the prescription for pantoprazole filled. documented in this encounter Plan of Treatment Not on file documented as of this encounter Visit Diagnoses Not on filedocumented in this encounter Care Teams Supply Chain Vice President Relationship Specialty Start Date End Date Yisel Marroquin MD [address] [place] [address] PCP - General 11/13/18 03/05/19 documented as of this encounter
--- OUTSIDE RECORDS SUMMARY | 2024-02-22 00:54 | XMS_ITS | Encounter Summary ---
Author Organization [facility] [place] [address] Care Team Providers Care Network Solutions Architect Name Role Phone Yisel Marroquin MD Primary Care Provider Reason for Visit * Diagnostic Test (Routine) - Closed Specialty Diagnoses / Procedures Referred By Contac t Referred To Contact Radiology Diagnoses Long-term use of high-risk medication Other osteoporosis without current pathological fracture Procedures DXA Central-Spine, Hip, And/Or Whole Body (Generic) Yisel Marroquin MD [address] [place] [address] [facility] Rad Xray [address] [place] [address] Referral ID Status Reason Start Date Expiration Date V isits Requested Visits Authorized [id number] Closed Specialty Service Requested 02/07/2019 02/07/2020 1 1 Encounter Details Date Type Department Care Team (Latest Contact Info) Description 02/20/2019 10:00 AM EDT Ancillary Procedure Radiology DXA at [facility] [address] [place] [address] Yisel Marroquin MD [address] [place] [address] Long-term use of high-risk medication; Other osteoporosis without current pathological fracture Social History [...] SPINE, HIP, AND/OR WHOLE BODY (GENERIC) Routine 02/20/2019 10:27 AM EDT Long-term use of high-risk medication Other osteoporosis without current pathological fracture documented in this encounter Results * DXA Central-Spine, Hip, And/Or Whole Body (Generic) (02/20/2019 10:27 AM EDT) Anatomical Region Laterality Modality C-spine, Hip N/A Digital Radiogra phy Impressions 02/20/2019 10:58 AM EDT Osteoporosis left femoral neck Estimating Fracture Risk: The relationship between bone [...] BMD measurements and plots are available in [email or web address] under the imaging tab. Paper copies will be sent to providers without [employer] access. If you have received this report without the data sheet and do not have access to [employer], please contact Radiology Cotton Program Technician at [phone] Tuesday thru Tuesday 8am-4pm. Thank you for letting us participate in the care of this patient. For questions regarding this report, please contact the number below. ? Narrative 02/20/2019 10:58 AM EDT EXAMINATION: DXA CENTRAL-SPINE, HIP, AND/OR WHOLE BODY (GENERIC) CLINICAL HISTORY: Hx bariatric surgery amd fdc PPI use, rec by gen surg TECHNIQUE: Scans were acquired at the lumbar spine, left hip, ?? COMPARISON: 10/29/2015 FINDINGS: Lowest T-score at a diagnostic region of interest: T-score: -2.0, CHANCE: Left femoral neck, WHO diagnosis: Osteoporosis. The bone mineral density of the hip total has decreased by 5.5% compared with the previous DEXA Procedure Note Rinku Wilkins MD - 02/20/2019 EXAMINATION: DXA CENTRAL-SPINE, HIP, AND/OR WHOLE BODY (GENERIC) CLINICAL HISTORY: Hx bariatric surgery amd fdc PPI use, rec by [place] TECHNIQUE: Scans were acquired at the lumbar spine, left hip, COMPARISON: 10/29/2015 FINDINGS: Lowest T-score at a diagnostic region of interest: T-score: -2.0, CHANCE: Left femoral neck, WHO diagnosis: Osteoporosis. The bone mineral density of the hip total has decreased by 5.5% comparedwith the previous DEXA IMPRESSION Osteoporosis left femoral neck Estimating Fracture Risk: The relationship between bone [...] BMD measurements and plots are available in E-DHunder the imaging tab. Paper copies will be sent to providers without E- access.If you have received this report without the data sheet and do not haveaccess to [email or web address], please contact Radiology Cotton Program Technician at [phone] Tuesday thruFriday 8am-4pm. Thank you for letting us participate in the care of this patient. Forquestions regarding this report, please contact the number below. Yisel Marroquin MD IMG DEXA ORDERABLES documented in this encounter Visit Diagnoses Diagnosis Long-term use of high-risk medication Other osteoporosis without current pathological fracture documented in this encounter Care Teams Network Solutions Architect Relationship Specialty Start Date End Date Yisel Marroquin MD [address] [place] [address] PCP - General 11/13/18 03/05/19 documented as of this encounter
--- OUTSIDE RECORDS SUMMARY | 2024-02-22 00:54 | XMS_ITS | Encounter Summary ---
Author Organization [facility] [place] [address] Care Team Providers Care Director Skills Name Role Phone Yisel Marroquin MD Primary Care Provider [phone] Reason for Visit * Reason Onset Date Comments Other 09/11/2018 Encounter Details Date Type Department Care Team (Late st Contact Info) Description 09/11/2018 Telephone [place] [phone] Sidra Del Toro, SOFTWARE CONFIGURATION ANALYST [facility] [address] Other Social History Tobacco Use Types Packs/Day [...] encounter Miscellaneous Notes * Telephone Encounter - Sidra Del Toro - 09/11/2018 9:02 AM EST Bariatric Surgery Program S/P gastric bypass in 1999 Jeannie saldaña reports minimal fluid intake (a few sips) since discharge from the ED on 09/09, when she refused admission for dysphagia and pneumonia. She reports that due to her PTSD, she needed some time to process the information. She requests a BSP follow up today. Plan: given her ongoing symptoms of dysphagia with extended poor oral intake, I recommended that she return to the ED for evaluation for admission documented in this encounter Plan of Treatment Not on file documented as of this encounter Visit Diagnoses Not on filedocumented in this encounter Care Teams Director Skills Relationship Specialty Start Date End Date Yisel Marroquin MD [address] [place] [address] PCP - General General Internal Medicine 06/28/1810/24 documented as of this encounter
--- OUTSIDE RECORDS SUMMARY | 2024-02-22 00:54 | XMS_ITS | Encounter Summary ---
Author Organization [facility] [place] [address] Care Team Providers Care Customs Inspector Name Role Phone Yisel Marroquin MD Primary Care Provider [phone] Reason for Visit * Reason Onset Date Comments Medication Refill 01/04/2019 Encounter Details Date Type Department Care Team (Late st Contact Info) Description 01/04/2019 Refill Primary Care at [facility] [address] [place] [phone] Yisel Marroquin MD [address] [place] [address] CAD (coronary artery disease) Social History Tobacco [...] Telephone Encounter - Sabine Yee RMA - 01/04/2019 1:10 PM EDT Last Prescription Fill Date: 10/09/18 Number Dispensed and Refills: 90/2 90/3 Last Related Office Visit: 10/19/18 Upcoming Appointment: 02/07/2019 No flowsheet data found. Lab Results Component Value Date HGB 14.0 09/11/2018 HCT 42.7 09/11/2018 CHLPL 159 04/15/2013 TRIG 138 04/15/2013 HDL 30 (L) 04/15/2013 LDLCHOL 101 (H) 04/15/2013 ALT 7 09/11/2018 AST 13 09/11/2018 NA 141 09/11/2018 K 4.1 09/11/2018 CL 101 09/11/2018 CREATININE 0.83 09/11/2018 TSH 2.125 (External Lab) 01/04/2018 INR 1.0 04/16/2013 HA1C 5.6 (External Lab) 01/04/2018 documented in this encounter Plan of Treatment Not on file documented as of this encounter Visit Diagnoses Diagnosis CAD (coronary artery disease) Coronary atherosclerosis of unspecified type of vessel, flandreau or graft documented in this encounter Care Teams Customs Inspector Relationship Specialty Start Date End Date Yisel Marroquin MD [address] [place] [address] PCP - General 11/13/18 03/05/19 documented as of this encounter
--- OUTSIDE RECORDS SUMMARY | 2024-02-22 00:54 | XMS_ITS | Encounter Summary ---
Author Organization [facility] [place] [address] Care Team Providers Care Nuclear Test Technician Name Role Phone Yisel Marroquin MD Primary Care Provider [phone] Reason for Visit * Reason Comments Medication Refill Encounter Details Date Type Department Care Team (Late st Contact Info) Description 12/12/2018 Refill [facility] at [facility] [address] [place] [id number] Yisel Marroquin MD 10 [place] [address] Social History Tobacco Use Types Packs/Day Years [...] encounter Miscellaneous Notes * Telephone Encounter - Sydney Mckenna RN - 12/13/2018 8:53 AM EDT Last Prescription Fill Date: 07/05/2018 Number Dispensed and Refills: Last Related Office Visit: 10/19/18 Upcoming Appointment: 01/26/2019 No flowsheet data found. Lab Results Component [...] on filedocumented in this encounter Care Teams Nuclear Test Technician Relationship Specialty Start Date End Date Yisel Marroquin MD [address] [place] [address] PCP - General 11/13/18 03/05/19 documented as of this encounter
--- OUTSIDE RECORDS SUMMARY | 2024-02-22 00:54 | XMS_ITS | Encounter Summary ---
Author Organization [facility] Address [facility] [place] [address] Care Team Providers Care Sandblast Carver Name Role Phone Yisel Marroquin MD Primary Care Provider [phone] Encounter Details Date Type Department Care Team (Late st Contact Info) Description 10/19/2018 Abstract [facility] Conversion Results [address] [place] [address] Apd Conversion, Flowsheet Provider, Social History Tobacco Use Types Packs/Day Years [...] Sign Reading Time Taken Comments Blood Pressure 138/78 10/19/2018 11:31 AM EDT Sourced from APD Conversion Pulse - - Temperature - - Respiratory Rate - - Oxygen Saturation - - Inhaled Oxygen Concentration - - Weight 99.4 kg (219 lb 2.2 oz) 10/19/2018 11:31 AM EDT Sourced from APD Conversion Height 162 cm (5' 3.78) 10/19/2018 11: 31 AM EDT Sourced from APD Conversion Body Mass Index 37.87 10/19/2018 11:31 AM EDT documented in this encounter Plan of Treatment Not on file documented as of this encounter Visit Diagnoses Not on filedocumented in this encounter Care Teams Sandblast Carver Relationship Specialty Start Date End Date Yisel Marroquin MD [address] [place] [address] PCP - General 11/13/18 03/05/19 documented as of this encounter
--- OUTSIDE RECORDS SUMMARY | 2024-02-22 00:54 | XMS_ITS | Encounter Summary ---
Author Organization [facility] [place] [address] Care Team Providers Care Regulator Mechanic Name Role Phone Yisel Marroquin MD Primary Care Provider [phone] Encounter Details Date Type Department Care Team (Late st Contact Info) Description 01/05/2019 Telephone Cardiology at [address] [phone] Jessica Galindo RN Social History Tobacco Use Types Packs/Day [...] Telephone Encounter - Yisel Marroquin MD - 01/05/2019 2:59 PM EDT Shannon, can you confirm with patient that cards says ok to keep the omprazole she was on before per prior. I am ok to Rx this if needed since they have approved but please stay on plavix! - * Telephone Encounter - Jessica Galindo RN - 01/05/2019 1:32 PM EDT Received incoming message from patient and Jorge Del Toro APRN - asking about patient taking omeprazole with clopidogrel. Patient was switched to Pantoprazole- and c/o stomach pain. She had previously been on omeprazole 20 mg BID- and did tolerate this well with the clopidogrel. Patient asking if we could call her PCP and Ms. Alverto APRN - to let them know it is acceptable for her to go back to the opmeprazole 40 mg daily dosage. Discussed with Dr. Gomez- in the absence of Dr. Mejias. Dr. Mejias's 12/13/16 office note was reviewed. Patient was clearly taking both omeprazole 20 mg twice daily and 75 mg of clopidogrel- so Dr. Gomezdid not foresee any problems with patient continuing with both of these medications. I did speak with Jorge Del Toro APRN directly about this. This message will be forwarded to PCP- Kalin Marroquin MD for her consideration. Call to patient to relay the above information and to let her know that she is overdue for f/u withDr. Mejias. Patient was willing to schedule this appointment - so her call was transferred to scheduling. Patient knows how to contact Cardiology office and understands she may do so at any time with further questions or concerns.\ Jessica Galnido RN, BSN Ambulatory Cardiology Department documented in this encounter Plan of Treatment Not on file documented as of this encounter Visit Diagnoses Not on filedocumented in this encounter Care Teams Regulator Mechanic Relationship Specialty Start Date End Date Yisel Marroquin MD [address] [place] [address] PCP - General 11/13/18 03/05/19 documented as of this encounter
--- OUTSIDE RECORDS SUMMARY | 2024-02-22 00:54 | XMS_ITS | Encounter Summary ---
Author Organization [facility] Address [facility] [place] [address] Care Team Providers Care Community Dietitian Name Role Phone Yisel Marroquin MD Primary Care Provider [phone] Encounter Details Date Type Department Care Team (Late st Contact Info) Description 06/27/2018 Abstract [facility] Conversion Results [address] [place] [address] Apd Conversion, Flowsheet Provider, Social History Tobacco [...] Sign Reading Time Taken Comments Blood Pressure 134/68 06/27/2018 9:59 AM EST Sourced from AP[facility] Conversion Pulse - - Temperature - - Respiratory Rate - - Oxygen Saturation - - Inhaled Oxygen Concentration - - Weight 104.4 kg (230 lb 2.6 oz) 06/27/2018 9:59 AM EST Sourced from APD Conversion Height 162 cm (5' 3.78) 06/27/2018 9:5 9 AM EST Sourced from APD Conversion Body Mass Index 39.78 06/27/2018 9:59 AM EST documented in this encounter Plan of Treatment Not on file documented as of this encounter Visit Diagnoses Not on filedocumented in this encounter Care Teams Community Dietitian Relationship Specialty Start Date End Date Yisel Marroquin MD [address] [place] [address] PCP - General 11/13/18 03/05/19 documented as of this encounter
--- OUTSIDE RECORDS SUMMARY | 2024-02-22 00:54 | XMS_ITS | Encounter Summary ---
Author Organization [facility] [place] [address] Care Team Providers Care Licensed Nuclear Operator Name Role Phone Yisel Marroquin MD Primary Care Provider [phone] Reason for Visit * Reason Onset Date Comments Medication Refill 12/14/2018 Encounter Details Date Type Department Care Team (Late st Contact Info) Description 12/14/2018 Refill Primary Care at [facility] [address] [place] [phone] Yisel Marroquin MD [address] [place] [address] B12 deficiency Social History Tobacco Use Types [...] Telephone Encounter - Shannon Cruz RN - 12/14/2018 5:25 PM EDT [place] [facility] called because they received a vitamin B12 1000mcg rx. The rx was for QD, but is usually for every week. 4 tabs were sent in. Rx fixed and sent to pharmacy. documented in this encounter Plan of Treatment Not on file documented as of this encounter Visit Diagnoses Diagnosis B12 deficiency Other B-complex deficiencies documented in this encounter Care Teams Licensed Nuclear Operator Relationship Specialty Start Date End Date Yisel Marroquin MD [address] [place] [address] PCP - General 11/13/18 03/05/19 documented as of this encounter
--- OUTSIDE RECORDS SUMMARY | 2024-02-22 00:54 | XMS_ITS | Encounter Summary ---
Author Organization [facility] [address] Care Team Providers Care Bit Welder Name Role Phone Yisel Marroquin MD Primary Care Provider Reason for Visit * Reason Comments Rash Encounter Details Date Type Department Care Team (Late st Contact Info) Description 01/05/2019 10:45 AM EDT Office Visit Primary Care at [facility] [address] [place] [phone] Yisel Marroquin MD [address] [place] [address] Dermatitis Social History Tobacco Use Types Packs/Day Years [...] Sign Reading Time Taken Comments Blood Pressure 124/68 01/05/2019 11:01 AM EDT Pulse 62 01/05/2019 11:01 AM EDT Temperature 37 ??C (98.6 ??F) 01/05/2019 11:01 AM EDT Respiratory Rate - - Oxygen Saturation 96% 01/05/2019 11:01 AM EDT Inhaled Oxygen Concentration - - Weight 101 kg (222 lb 10.6 oz) 01/05/2019 11:01 AM EDT Height 162 cm (5' 3.78) 01/05/2019 11:01 AM EDT Body Mass Index 38.48 01/05/2019 11:01 AM EDT documented in this encounter Progress Notes * Yisel Marroquin MD - 01/05/2019 10:45 AM EDT Images from the original note were not included. Subjective: Patient ID: Jeannie Rico is a 58 y.o. female. Rash This is a new problem. The current episode started 1 to 4 weeks ago. The problem has been graduallyworsening since onset. The affected locations include the back. The rash is characterized by itchiness. She was exposed to a new detergent/soap and chemicals. Associated symptoms include coughing andfatigue. Past treatments include moisturizer and antihistamine. The treatment provided mild relief. Review of Systems Constitutional: Positive for appetite change and fatigue. HENT: Negative. Eyes: Negative. Respiratory: Positive for cough. Cardiovascular: Negative. Gastrointestinal: Positive for nausea. Endocrine: Negative. Genitourinary: Negative. Musculoskeletal: Negative. Skin: Positive for rash. Allergic/Immunologic: Positive for environmental allergies. Neurological: Positive for dizziness and light-headedness. Hematological: Negative. Psychiatric/Behavioral: Positive for sleep disturbance. All other systems reviewed and are negative. Objective: Physical Exam Skin: pictured scabbed lesions primarily on R mid back, scattered lesions on L upper shoulder as well, arms scarred from scratching. Visit Vitals BP 124/68 (BP Location (NBP): Right arm, Patient Position: Sitting) Pulse 62 Temp 37 ??C (98.6 ??F) (Oral) Ht 162 cm (5' 3.78) Wt 101 kg (222 lb 10.6 oz) SpO2 96% BMI 38.48 kg/m?? Wt Readings from Last 3 Encounters: 01/05/19 101 kg (222 lb 10.6 oz) 11/15/18 100.7 kg (221 lb 14.4 oz) 10/19/18 99.4 kg (219 lb 2.2 oz) Lab Results Component Value Date WBC 7.6 09/11/2018 HGB 14.0 09/11/2018 HCT 42.7 09/11/2018 PLATELET 161 09/11/2018 CHLPL 159 04/15/2013 TRIG 138 04/15/2013 HDL 30 (L) 04/15/2013 LDLCHOL 101 (H) 04/15/2013 ALT 7 09/11/2018 AST 13 09/11/2018 NA 141 09/11/2018 K 4.1 09/11/2018 CL 101 09/11/2018 CREATININE 0.83 09/11/2018 BUN 15 09/11/2018 CO2 26 09/11/2018 TSH 2.125 (External Lab) 01/04/2018 INR 1.0 04/16/2013 HA1C 5.6 (External Lab) 01/04/2018 MICROALBUR 2.1 (External Lab) 01/04/2018 Assessment and Plan: 58 y/o somewhat medically complex F presenting with excoriated rash that is healing. Discussed using benadryl, topical corticosteroids PRN. Unlikely shingles as she reports no nerve like pain and more than one dermatome affected. Also scabbed lesions and not getting any new lesions so treatment would be unlikely to help if it was shingles. She will call back if needed. Problem List Items Addressed This Visit None Visit Diagnoses Dermatitis Yisel Marroquin MD Internal Medicine [facility] documented in this encounter Plan of Treatment Not on file documented as of this encounter Visit Diagnoses Diagnosis Dermatitis Contact dermatitis and other eczema, due to unspecified cause documented in this encounter Care Teams Bit Welder Relationship Specialty Start Date End Date Yisel Marroquin MD [address] [place] [address] PCP - General 11/13/18 03/05/19 documented as of this encounter
--- OUTSIDE RECORDS SUMMARY | 2024-02-22 00:54 | XMS_ITS | Encounter Summary ---
Author Organization [facility] [place] [address] Care Team Providers Care Field Horticultural Specialty Grower Name Role Phone Yisel Marroquin MD Primary Care Provider [phone] Encounter Details Date Type Department Care Team (Late st Contact Info) Description 12/11/2018 Orders Only [facility] at [facility] [place] [facility] [address] [place] [address] Ruth Rene Social History Tobacco Use Types Packs/Day Years [...] on filedocumented in this encounter Care Teams Field Horticultural Specialty Grower Relationship Specialty Start Date End Date Yisel Marroquin MD [address] [place] [address] PCP - General 11/13/18 03/05/19 documented as of this encounter
--- OUTSIDE RECORDS SUMMARY | 2024-02-22 00:54 | XMS_ITS | Encounter Summary ---
Author Organization [facility] [place] [address] Care Team Providers Care Lidar Scientist Name Role Phone Yisel Marroquin MD Primary Care Provider [phone] Encounter Details Date Type Department Care Team (Late st Contact Info) Description 01/05/2019 Notes [place] [address] Sidra Del Toro, REINSURANCE CLAIMS ANALYST [facility] [place] [address] Social History Tobacco Use Types Packs/Day Years [...] as of this encounter Progress Notes * Sidra Del Toro - 01/05/2019 12:36 PM EDT Bariatric Surgery Program [facility] cardiology clinic called to clarify whether Jeannie had a conversation today with a cardiology clinician regarding plavix and omeprazole. Jeannie left a message with me stating that she had spoken with a cardiology clinician today. There is no documentation of a call with cardiology documented in this encounter Plan of Treatment Not on file documented as of this encounter Visit Diagnoses Not on filedocumented in this encounter Care Teams Lidar Scientist Relationship Specialty Start Date End Date Yisel Marroquin MD [address] [place] [address] PCP - General 11/13/18 03/05/19 documented as of this encounter
--- OUTSIDE RECORDS SUMMARY | 2024-02-22 00:54 | XMS_ITS | Encounter Summary ---
Author Organization [facility] [place] [address] Care Team Providers Care Cost And Sales Record Supervisor Name Role Phone Yisel Marroquin MD Primary Care Provider [phone] Reason for Visit * Reason Onset Date Comments Other 01/05/2019 Encounter Details Date Type Department Care Team (Late st Contact Info) Description 01/05/2019 Telephone [place] [phone] Sidra Del Toro, MACHINE TRACER [facility] [place] [address] Other Social History Tobacco Use Types Packs/Day [...] Telephone Encounter - Sidra Del Toro - 01/05/2019 10:50 AM EDT Bariatric Surgery Program Jeannie left message requesting an Rx for omeprazole, reports worsening heartburn since starting pantoprazole, which was started at a recent visit due to heartburn while taking omeprazole. She left a message stating if it wasn't changed back to omeprazole, she would discontinue plavix Plan: message left d/c pantoprazole, restart omeprazole 20 mg daily. Smoking cessation encouraged documented in this encounter Plan of Treatment Not on file documented as of this encounter Visit Diagnoses Not on filedocumented in this encounter Care Teams Cost And Sales Record Supervisor Relationship Specialty Start Date End Date Yisel Marroquin MD [address] [place] [address] PCP - General 11/13/18 03/05/19 documented as of this encounter
--- OUTSIDE RECORDS SUMMARY | 2024-02-22 00:54 | XMS_ITS | Encounter Summary ---
Author Organization [facility] [place] [address] Care Team Providers Care Artist Mannequin Coloring Name Role Phone Yisel Marroquin MD Primary Care Provider [phone] Encounter Details Date Type Department Care Team (Late st Contact Info) Description 04/18/2019 Telephone Primary Care at [facility] [address] [place] [phone] Shannon Cruz, RN Social History Tobacco Use [...] Telephone Encounter - Shannon Cruz, RN - 04/19/2019 11:39 AM EDT Jeannie called and states that she has been really really dizzy x 1 week. She fell 2x. She reports that she was standing and all of sudden falling off a vicenta and fell. She reports that on 04/18/19,a bad headache started. She reports that medical marijuana and aspirin did not help with FELTON. Pt sent to ED for eval and tx * Telephone Encounter - Shannon Cruz RN - 04/18/2019 4:08 PM EDT Jeannie is calling because she was seen on 04/11/19. Her BP was 124/64 and her lisinopril was decreased to 10mg. She was instructed to check BP q weekly. [facility]. 184/89 and 195/104. PCP notified. documented in this encounter Plan of Treatment Not on file documented as of this encounter Visit Diagnoses Not on filedocumented in this encounter Care Teams Artist Mannequin Coloring Relationship Specialty Start Date End Date Yisel Marroquin MD [address] [place] [address] PCP - General General Internal Medicine 03/06/1911/22 documented as of this encounter
--- OUTSIDE RECORDS SUMMARY | 2024-02-22 00:54 | XMS_ITS | Encounter Summary ---
Author Organization [employer], Located Within [facility] [place] [address] Care Team Providers Care Video Game Maker Name Role Phone Yisel Marroquin MD Primary Care Provider [phone] Reason for Visit * Reason Comments Dysphagia Fever Encounter Details Date Type Department Care Team (Late st Contact Info) Description 09/08/2018 3:39 PM EST - 09/08/2018 11:11 PM EST [place] [id number] Meena English MD [facility] [place] [address] Pneumonia due to organism Discharge Disposition: Home Social History Tobacco Use [...] Sign Reading Time Taken Comments Blood Pressure 161/88 09/08/2018 10:17 PM EST Pulse 52 09/08/2018 7:25 PM EST Temperature 36.8 ??C (98.2 ??F) 09/08/2018 10:[address] Respiratory Rate 18 09/08/2018 7:25 PM EST Oxygen Saturation 94% 09/08/2018 10:17 PM EST Inhaled Oxygen Concentration - - Weight 100.7 kg (222 lb) 09/08/2018 2:02 PM EST Height 162.6 cm (5' 4) 09/08/2018 2:02 PM EST Body Mass Index 38.11 09/08/2018 2:02 PM EST documented in this encounter Discharge Instructions * Discharge Instructions* Gerald Benton MD - 09/08/2018 11:01 PM EST You for coming in today, you were seen for fever and difficulty swallowing. You were found to have a pneumonia. Please take the antibiotics that we have prescribed you. Please return the emergency department if you are unable to swallow anything, or if your symptoms worsen. documented in this encounter Medications at Time of Discharge Medication Sig Dispensed Refills Start Date End Date doxycycline (VIBRAMYCIN) 100 mg Capsule Take 1 capsule by mouth 2 times daily for 10 days. 20 capsule 09/08/2018 09/19/2018 isosorbide mononitrate (IMDUR) 60 mg Tablet Sustained Release 24 hr Take 1 tablet by mouth daily. 90 tablet 3 03/27/2018 04/06/2019 lisinopril (PRINIVIL;ZESTRIL) 20 mg Tablet Take 20 mg by mouth daily. 01/04/2019 sertraline (ZOLOFT) 50 mg Tablet Take 50 mg by mouth daily. 12/09/2016 06/01/2019 ASCORBIC ACID, VITAMIN C, ORAL Take 1,000 mg by mouth daily. 02/07/2019 tiZANidine (ZANAFLEX) 4 mg Tablet Take 4 mg by mouth 3 times daily. 05/31/2016 01/29/2019 QUEtiapine (SEROQUEL) 50 mg Tablet Take 75 mg by mouth daily. 05/24/2016 11/15/2018 polyethylene glycol (MIRALAX) 17 gram/dose Powder Take 1 g by mouth as needed. 05/25/2016 02/07/2019 omeprazole (PRILOSEC) 20 mg Capsule, Delayed Release(E.C.) Take 20 mg by mouth 2 times daily. 2016 11/15/2018 lamoTRIgine (LAMICTAL) 200 mg Tablet Take 200 mg by mouth daily. 2016 06/01/2019 alendronate (FOSAMAX) 70 mg Tablet Take 70 mg by mouth daily. 05/23/2016 11/15/2018 QUEtiapine (SEROQUEL) 25 mg tablet Take 50 mg by mouth as needed. 1-4 times per day 11/15/2018 promethazine (PHENERGAN) 25 mg tablet Take 25 mg by mouth 3 times daily. 02/07/2019 TAMSULOSIN HCL (TAMSULOSIN ORAL) Take by mouth daily. 02/07/2019 simvastatin (ZOCOR) 40 mg tabletIndications:CAD (coronary artery disease) Take 1 tablet by mouth nightly. 90 tablet 3 08/02/2013 01/04/2019 metoprolol succinate (TOPROL-XL) 25 mg 24 hr tablet TAKE 1 TABLET BY MOUTH DAILY. 30 tablet 3 06/06/2013 02/07/2019 meloxicam (MOBIC) 7.5 mg tablet Take 7.5 mg by mouth 2 times daily. 09/19/2018 prazosin (MINIPRESS) 2 mg capsule Take 6 mg by mouth nightly. 06/01/2019 traZODone (DESYREL) 150 mg Tablet Take 75 mg by mouth nightly. 10/01/2020 albuterol (PROAIR HFA) 90 mcg/actuation HFA Aerosol Inhaler Inhale 2 puffs into the lungs every 4 hours as needed. Use with spacer 05/18/2019 ferrous sulfate 325 mg (65 mg iron) EC tablet Take 325 mg by mouth every other day. 11/15/2018 aspirin 81 mg EC tablet Take 1 tablet by mouth daily. 30 tablet 6 04/17/2013 09/11/2018 clopidogrel (PLAVIX) 75 mg tablet Take 1 tablet by mouth daily. 30 tablet 6 04/17/2013 06/01/2019 nitroGLYcerin (NITROSTAT) 0.[address] 1 tablet under the tongue every 5 minutes as needed for Chest pain. Do not use more than 3 doses in 15 minute time period 90 tablet 3 04/17/2013 02/07/2019 methocarbamol (ROBAXIN) 500 mg tablet Take 500 mg by mouth 4 times daily. 02/07/2019 fluticasone-salmeterol (ADVAIR DISKUS) 500-50 mcg/dose diskus inhaler 1 Disk(s), Inh, Twice daily 09/23/2010 06/01/2019 levothyroxine (SYNTHROID) 50 mcg tablet 50MCG, PO, Once daily 09/23/2010 06/01/2019 documented as of this encounter ED Notes * Aminah Peguero RN - 09/08/2018 9:25 PM EST Patient returned from CT. Resting comfortably. * Aminah Peguero RN - 09/08/2018 9:06 PM EST Patient to CT scan * Celi Macedo RN - 09/08/2018 7:[address] Jasmeet Benton at bedside. * Celi Macedo RN - 09/08/2018 7:25 PM EST Pt tolerated swallowing PO medication without incident, denied C/O difficulty, no coughing noted. Pt awaiting disposition;call light within reach. Pt's friend remains at bedside. * Celi Macedo RN - 09/08/2018 4:35 PM EST Pt returned to room from xray * Gerald Benton MD - 09/08/2018 4:32 PM EST ED Resident Note Jeannie Rico is an 58 y.o. female who presents to the ED with: Chief Complaint Patient presents with ??? Dysphagia ??? Fever I saw this patient on 09/09/2018. History is from and at the bedside. HPI Jeannie Rico is a 58 y.o. female with history of ASCVD with [place] 1 year ago, obesity status post gastric bypass surgery, heavy tobacco use, hypertension, GERD who presents to the Emergency Department with difficulty swallowing, cough and fever for the past week. Patient states that for the past week she has been having difficulty swallowing, which has progressed. She states that she is now only able to swallow liquids, and is having difficulty even swallowing soup. Over this time. She is also complaining of a dry nonproductive cough, and fevers and chills.She took her temperature yesterday and reported a fever of 101.0. Patient states that she has had aprevious history of dysphasia last year which lasted about 3 months, during that time she underwentEGD and barium swallow study which was unremarkable. Review of Systems: Review of Systems Constitutional: Positive for fever. Negative for activity change, appetite change, chills, diaphoresis and unexpected weight change. HENT: Positive for sore throat. Negative for rhinorrhea and voice change. Respiratory: Positive for cough. Negative for apnea and shortness of breath. Cardiovascular: Negative for chest pain. Gastrointestinal: Negative for abdominal pain, constipation, diarrhea, nausea and vomiting. Genitourinary: Negative for dysuria. Musculoskeletal: Negative for back pain. Skin: Negative for rash. Neurological: Negative for dizziness, numbness and headaches. Psychiatric/Behavioral: Negative for confusion and suicidal ideas. Physical Exam: Patient Vitals for the past 24 hrs: BP Temp Temp src Pulse Resp SpO2 Height Weight 09/08/18 2217 161/88 36.8 ??C (98.2 ??F) Oral -- -- 94 % -- -- 09/08/182099 -- -- -- -- -- 92 % -- -- 09/08/181999 -- -- -- -- -- 95 % -- -- 09/08/18 1930 151/89 -- -- -- -- 92 % -- -- 09/08/18 1925 179/69 36.7 ??C (98.1 ??F) Oral 52 18 98 % -- -- 09/08/18 1830 -- -- -- 63 20 95 % -- -- 09/08/18 1700 141/84 -- -- 52 13 94 % -- -- 09/08/18 1600 159/81 -- -- 51 16 91 % -- -- 09/08/18 1402 139/84 37 ??C (98.6 ??F) Oral 52 18 94 % 162.6 cm (5' 4) 100.7 kg (222 lb) GEN: No acute distress. HEENT: Oropharynx clear, pink, and moist. There are no signs of soft tissue swelling. The uvula is midline. There is no swelling under the tongue. PULM: No resp distress. There are crackles in the bases bilaterally. CV: Normal rate. ABD: Soft, nondistended, nttp. MSK: No gross deformities. NEURO: AAOx3. PERRL. No gross CN deficits. Light touch intact face & body. Moves extremities equally. PSYCH: Normal mood and thought pattern. SKIN: No rashes. ED Course: - Patient seen under the supervision of the attending physician. - Medications, allergies, and past medical history reviewed. Recent Results (from the past 24 hour(s)) Blue Tube HOLD Result Value Ref Range Blue Hold Sample in lab. Gold Tube HOLD Result Value Ref Range Gold Hold Sample in lab. Basic Metabolic Panel (non-fasting) Result Value Ref Range Glucose Lvl 92 65 - 199 mg/dL BUN 9 8 - 18 mg/dL Creatinine 0.88 0.70 - 1.20 mg/dL Sodium 143 135 - 145 mmol/L Potassium 4.6 3.5 - 5.0 mmol/L Chloride 103 98 - 107 mmol/L CO2 30 22 - 31 mmol/L Anion Gap 10 5 - 15 mmol/L Calcium 9.9 8.5 - 10.5 mg/dL eGFR 72 >=60 mL/min/1.73 m?? eGFR 84 >=60 mL/min/1.73 m?? Troponin Result Value Ref Range Troponin-T <0.01 0.00 - 0.00 ng/mL pro-Brain Natriuretic Peptide Result Value Ref Range ProBNP 347 (H) <=125 pg/mL Hemogram Result Value Ref Range WBC 9.3 4.0 - 9.5 x10(3)/mcL RBC 4.60 4.00 - 5.21 x10(6)/mcL Hemoglobin 14.2 11.7 - 15.5 gm/dL Hematocrit 44.9 35.7 - 45.8 % MCV 97.6 (H) 82.6 - 94.4 fL MCH 30.9 27.1 - 32.0 pg MCHC 31.6 (L) 31.7 - 35.0 gm/dL Platelets 249 145 - 357 x10(3)/mcL RDWSD 49.3 (H) 37.0 - 46.0 fL RDWCV 13.5 11.5 - 14.1 % MPV 9.8 7.6 - 12.9 fL nRBC % Auto 0.0 % nRBC Abs Auto 0.000 0.000 - 0.000 x10(3)/mcL Differential, Automated Result Value Ref Range Neutrophils % 67.7 % Neutr Abs (ANC) 6.27 (H) 1.70 - 6.10 x10(3)/mcL Lymphocytes % 23.5 % Lymphocytes Abs 2.2 0.9 - 3.2 x10(3)/mcL Monocytes % 7.0 % Monocyte Abs 0.6 0.3 - 0.9 x10(3)/mcL Eosinophils % 0.6 % Eosinophils Abs 0.1 0.0 - 0.4 x10(3)/mcL Basophils % 0.8 % Basophils Abs 0.1 0.0 - 0.1 x10(3)/mcL Immature Gran % 0.40 % Fartun Gran Abs 0.04 0.00 - 0.04 x10(3)/mcL CT Soft tissue: IMPRESSION 1. No evidence of swelling/a collection within the aerodigestive tract. 2. Mildly prominent anterior projecting osteophytes are seen at C4-5 and C5-6. 3. Limited evaluation demonstrates central canal narrowing seen at the C5-6 level. Correlate with neurologic symptoms and consider supplemental MRI. ?? I Dr. Watson discussed the result(s) with Dr. Meena English on 09/08/2018 10:55 PM and verified that (s)he understood these results. ?? Thank you for letting us participate in the care of this patient. For questions regarding this report, please contact the number below. Assessment and Plan: 58 y.o. female with dysphagia and pneumonia. This 58yo female with a history of gastric bypass, dysphasia to solids, fevers up to 101 and productive cough. The patient has crackles on exam and chest x-ray demonstrates a left lower lobe infiltrate. Most likely she has no evolving pneumonia. Patient was given ceftriaxone and doxycycline. This pneumonia does not explain her dysphagia. The differential diagnosis includes soft tissue swelling or abscess, malignancy, stricture, acalasia. Patient has had dysphasia like this before at least 2 times in the past. She is undergone EGD, barium swallow was not found to have any abnormalities. Her dysphagia resolved on its own. Currently thepatient states that she is unable to tolerate solid foods which is concerning. CT soft tissue neck was obtained which does not demonstrate any soft tissue swelling such as a peritonsillar absces given her inability to tolerate solid foods s. And that she will likely need an EGD for further evaluation admission was recommended. Patient was offered admission for further evaluation and workup and she adamantly refused. Patient states that she will follow-up with her PCP in the next 2 days and promises to return if she is unable to tolerate nutrition. Patient passed a swallow test at the bedside and was able to tolerate oral medications. Patient was implored to return to emergency department should any of her symptoms worsen and she was discharged home. Return precautions were verbally discussed and written in discharge instructions. The patient and/or family expressed understanding that they could come back to the ED at any time and agreed to the follow-up plan. Gerald Benton MD Resident 09/09/18 1133 Associated attestation - Meena English MD - 10/16/2018 3:03 PM EDT ED ATTENDING ATTESTATION NOTE The patient was seen in conjunction with the resident physician. I have independently performed thekey portions of the history and physical exam. I have reviewed the nursing notes, vital signs, and all diagnostic studies personally including labs, imaging studies and EKGs. I have discussed the details of the case with the resident and agree with the assessment and plan as described in the resident note below. documented in this encounter Miscellaneous Notes * ED Triage - Tracy Guevara RN - 09/08/2018 2:03 PM EST Pt arrives ambulatory with cane. A&Ox4 speaking in full sentences. Pt reports difficulty swallowing for two days. Unable to swallow anything except water. Reports it just won't go down. Denies pain. Reports temp of 100.1 this AM. Arrives with no fevers. Respirations even and non labored. Managing secretions and speaking in clear sentences. Skin p/w/d. NAD at this time. documented in this encounter Plan of Treatment Not on file documented as of this encounter Procedures Procedure Name Priority Date/Time Associated Diagnosis Comments CT NECK SOFT TISSUE W CONTRAST STAT 09/08/2018 9:25 PM EST EKG 12-LEAD STAT 09/08/2018 7:26 PM EST HEMOGRAM STAT 09/08/2018 5:01 PM EST DIFFERENTIAL, AUTOMATED STAT 09/08/2018 5:01 PM EST CBC (WITH DIFF) STAT 09/08/2018 5:01 PM EST TROPONIN STAT 09/08/2018 5:01 PM EST PRO-BRAIN NATRIURETIC PEPTIDE STAT 09/08/2018 5:01 PM EST BASIC METABOLIC PANEL (NON-FASTING) STAT 09/08/2018 5:01 PM EST GOLD TUBE HOLD STAT 09/08/2018 5:01 PM EST BLUE TUBE HOLD STAT 09/08/2018 5:01 PM EST XR CHEST PA AND LATERAL STAT 09/08/2018 4:30 PM EST documented in this encounter Results * CT Neck Soft Tissue w Contrast (Generic) (09/08/2018 9:25 PM EST) Anatomical Region Laterality Modality Neck, Head Computed Tomogra phy Impressions 09/08/2018 10:57 PM EST 1. ??No evidence of swelling/a collection within the aerodigestive tract. 2. ??Mildly prominent anterior projecting osteophytes are seen at C4-5 and C5-6. 3. ??Limited evaluation demonstrates central canal narrowing seen at the C5-6 level. Correlate with neurologic symptoms and consider supplemental MRI. I Dr. Watson discussed the result(s) with Dr. Meena English on 09/08/2018 10:55 PM and verified that (s)he understood these results. Thank you for letting us participate in the care of this patient. For questions regarding this report, please contact the number below. ? Electronically signed by: JASMINE WATSON [facility] ([phone]), at 09/08/2018 10:57 PM 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 SUPERVISOR CLAIMS TECHNIQUE: CT neck performed after the intravenous administration of 110 cc of Omnipaque 350. Sagittal and coronal reformats were reviewed. COMPARISON: None FINDINGS: Limited visualization of the intracranial structures demonstrates no abnormality. The orbits are normal. The mastoid air cells are clear. Paranasal sinuses are normal. Craniocervical junction is normal. Sagittal alignment of the cervical spine is normal. Multilevel disc degenerative changes are present. There is prominent disc space height loss seen at C5-6 with posterior calcified disc material and anterior projecting endplate osteophytes. Mildly prominent anterior projecting osteophytes are also noted at C6-7. There is also moderate narrowing of the central canal this level. No prevertebral soft tissue swelling. Patient has a normal three-vessel aortic arch without stenosis at the great vessel origins. Common carotids are widely patent. No evidence of a significant stenosis seen at the ICA origins bilaterally. The extracranial internal carotid arteries are tortuous. Bilateral vertebral arteries are normal in course and caliber. The thyroid is normal. Lung apices are clear. Procedure Note Jasmine Watson MD - 09/08/2018 EXAMINATION: CT NECK SOFT TISSUE W CONTRAST (GENERIC) CLINICAL HISTORY: Dysphagia, concern for possible SUPERVISOR CLAIMS TECHNIQUE: CT neck performed after the intravenous administration of 110 cc ofOmnipaque 350. Sagittal and coronal reformats were reviewed. COMPARISON: None FINDINGS: Limited visualization of the intracranial structures demonstrates no abnormality. The orbits are normal. The mastoid air cells are clear. Paranasal sinusesare normal. Craniocervical junction is normal. Sagittal alignment of thecervical spine is normal. Multilevel disc degenerative changes are present. Thereis prominent disc space height loss seen at C5-6 with posterior calcifieddisc material and anterior projecting endplate osteophytes. Mildly prominentanterior projecting osteophytes are also noted at C6-7. There is also moderatenarrowing of the central canal this level. No prevertebral soft tissue swelling. Patient has a normal three-vessel aortic arch without stenosis at thegreat vessel origins. Common carotids are widely patent. No evidence of asignificant stenosis seen at the ICA origins bilaterally. The extracranial internalcarotid arteries are tortuous. Bilateral vertebral arteries are normal in courseand caliber. The thyroid is normal. Lung apices are clear. IMPRESSION 1. No evidence of swelling/a collection within the aerodigestive tract. 2. Mildly prominent anterior projecting osteophytes are seen at C4-5 andC5-6. 3. Limited evaluation demonstrates central canal narrowing seen at theC5-6 level. Correlate with neurologic symptoms and consider supplemental MRI. I Dr. Watson discussed the result(s) with Dr. Meena English on 09/08/201810:55 PM and verified that (s)he understood these results. Thank you for letting us participate in the care of this patient. Forquestions regarding this report, please contact the number below. Meena English MD IMG CT ORDERABLES * EKG 12 Lead (09/08/2018 7:26 PM EST) Ventricular rate 48 BPM MUSE SYSTEM Atrial Rate 48 BPM MUSE SYSTEM P-R Interval 150 ms MUSE SYSTEM QRS Duration 82 ms MUSE SYSTEM Q-T Interval 438 ms MUSE SYSTEM QTC Calculated (Bezet) 391 ms MUSE SYSTEM Calculated P [place] 46 degrees MUSE SYSTEM Calculated R [place] 52 degrees MUSE SYSTEM Calculated T [place] 34 degrees MUSE SYSTEM INTERPRETATION Marked sinus bradycardia Abnormal ECG When compared with ECG of 10-MAY-2016 07:53, No significant change was found Confirmed by MD Manish, Karl ([id number]) on 09/08/2018 9:41:34 PM MUSE SYSTEM 09/08/2018 7:26 PM EST 09/08/2018 9:41 PM EST Meena English MD ECG ORDERABLES MUSE SYSTEM * (ABNORMAL) Differential, Automated (09/08/2018 5:01 PM EST) Neutrophils % 67.7 % [facility] Neutr Abs (ANC) 6.27(H) 1.70 - 6.10 x10(3)/[facility] Lymphocytes % 23.5 % [facility] Lymphocytes Abs 2.2 0.9 - 3.2 x10(3)/[facility] Monocytes % 7.0 % [facility] Monocyte Abs 0.6 0.3 - 0.9 x10(3)/[facility] Eosinophils % 0.6 % [facility] Eosinophils Abs 0.1 0.0 - 0.4 x10(3)/[facility] Basophils % 0.8 % [facility] Basophils Abs 0.1 0.0 - 0.1 x10(3)/[facility] Immature Gran % 0.40 % [facility] Comment: Immature granulocytes(IG's)percentage and absolute count will include metamyelocytes, myelocytes, and promyelocytes. Blood smears from CBCs yielding IG's will be scanned manually for concordance. If this scan disagrees with the automated IG or if promyelocytes are noted, a manual differential will be performed. Fartun Gran Abs 0.04 0.00 - 0.04 x10(3)/[facility] Blood specimen (specimen) 09/08/2018 5:01 PM EST 09/08/2018 5:01 PM EST Narrative Resulting Agency Comment Spec In Lab Gerald Benton MD HEMATOLOGY G[place]RAKE [facility] [place] [address] * (ABNORMAL) Hemogram (09/08/2018 5:01 PM EST) WBC 9.3 4.0 - 9.5 x10(3)/[facility] RBC 4.60 4.00 - 5.21 x10(6)/[facility] Hemoglobin 14.2 11.7 - 15.5 gm/dL [facility] Hematocrit 44.9 35.7 - 45.8 % [facility] MCV 97.6(H) 82.6 - 94.4 [facility] MCH 30.9 27.1 - 32.0 pg [facility] MCHC 31.6(L) 31.7 - 35.0 gm/dL [facility] Platelets 249 145 - 357 x10(3)/[facility] RDWSD 49.3(H) 37.0 - 46.0 [facility] RDWCV 13.5 11.5 - 14.1 % [facility] MPV 9.8 7.6 - 12.9 [facility] nRBC % Auto 0.0 % [facility] nRBC Abs Auto 0.000 0.000 - 0.000 x10(3)/[facility] Blood specimen (specimen) 09/08/2018 5:01 PM EST 09/08/2018 5:01 PM EST Narrative Resulting Agency Comment Spec In Lab Gerald Benton MD HEMATOLOGY [place] [facility] [place] [address] * (ABNORMAL) pro-Brain Natriuretic Peptide (09/08/2018 5:01 PM EST) ProBNP 347(H) <=125 pg/mL [facility] Blood specimen (specimen) 09/08/2018 5:01 PM EST 09/08/2018 5:01 PM EST Narrative Resulting Agency Comment Spec In Lab Meena English MD CHEMISTRY ORDERABLES Performing Organization Address City/State/[facility] Co de Phone Number [facility] [place] [address] * Troponin (09/08/2018 5:01 PM EST) [facility] Troponin-T <0.01 0.00 - 0.00 ng/mL [facility] Comment: The 99th percentile for Troponin T is less than 0.01 ng/mL, any detectable cTnT concentration using this assay should be considered elevated. According to the third universal definition of myocardial infarction the following criteria with a clinical presentation consistent with acute myocardial ischemia meets the diagnosis for a myocardial infarction ([place]). Detection of a rise and/or fall of cTnT, with at least one value greater than the 99th percentile (> or = 0.01) and with at least one of the following ?? Symptoms of ischemia ?? New or presumed new significant [id number] wave (ST-T) changes or new left bundle [...] additional sample may be indicated. Reference: Third [place] Definition of Myocardial Infarction. Journal of the [place] [employer] 2012;60:1581-98 Blood specimen (specimen) 09/08/2018 5:01 PM EST 09/08/2018 5:01 PM EST Narrative Resulting Agency Comment Spec In Lab Meena English MD CHEMISTRY ORDERABLES [facility] [place] [address] * Basic Metabolic Panel (non-fasting) (09/08/2018 5:01 PM EST) Glucose Lvl 92 65 - 199 mg/dL [facility] Comment:Diabetes: >=200 mg/d L plus symptoms BUN 9 8 - 18 mg/dL [facility] Creatinine 0.88 0.70 - 1.20 mg/dL [facility] Sodium 143 135 - 145 mmol/L [facility] Potassium 4.6 3.5 - 5.0 mmol/L [facility] Comment: Please note: ??Patients with WBC >100,000 may have falsely elevated Potassium levels. ??For accurate Potassium quantification in these patients send serum separator tube (gold top) for subsequent determinations. ??Contact the Clinical Chemistry Laboratory if there are any questions. Chloride 103 98 - 107 mmol/L [facility] CO2 30 22 - 31 mmol/L [facility] Anion Gap 10 5 - 15 mmol/L [facility] Calcium 9.9 8.5 - 10.5 mg/dL [facility] Estimated GFR 72 >=60 mL/min/1. 73 m?? [facility] Comment: The eGFR was calculated using the CKD-EPI equation. As with all creatinine based estimates of kidney function, eGFR values calculated with the CKD-EPI equation are not accurate in patients with acute kidney failure, extremes of body mass or the acutely ill. [email or web address]/DHnkf eGFR 84 >=60 mL/min/1. 73 m?? [facility] Comment: The eGFR was calculated using the CKD-EPI equation. As with all creatinine based estimates of kidney function, eGFR values calculated with the CKD-EPI equation are not accurate in patients with acute kidney failure, extremes of body mass or the acutely ill. [email or web address]/DHMCnkf Blood specimen (specimen) 09/08/2018 5:01 PM EST 09/08/2018 5:01 PM EST Narrative Resulting Agency Comment Spec In Lab Meena English MD CHEMISTRY ORDERABLES Performing Organization Address [facility] Co de Phone Number [facility] [place] [address] * Gold Tube HOLD (09/08/2018 5:01 PM EST) Gold Hold Sample in lab. [facility] Blood specimen (specimen) Venous Draw / Unknown 09/08/2018 5:01 PM EST 09/08/2018 5:02 PM EST Gerald Benton MD CHEMISTRY ORDER MORENO Performing Organization Address [facility] [place] [address] * Blue Tube HOLD (09/08/2018 5:01 PM EST) Blue Hold Sample in lab. [facility] Blood specimen (specimen) Venous Draw / Unknown 09/08/2018 5:01 PM EST 09/08/2018 5:03 PM EST Gerald Benton MD HEMATOLOGY ORDMaicol DRAKE Performing Organization Address [facility] [place] [address] * XR Chest PA & Lateral (Generic) (09/08/2018 4:30 PM EST) Anatomical Region Laterality Modality Chest N/A Digital Radiogra phy Impressions 09/08/2018 4:48 PM EST Suspect developing infiltrate left lower lobe. Thank you for letting us participate in the care of this patient. For questions regarding this report, please contact the number below. ? Electronically signed by: Rinku Wilkins [facility] ([phone]), at 09/08/2018 4:48 PM Narrative 09/08/2018 4:48 PM EST EXAMINATION: XR CHEST PA AND LATERAL (GENERIC) CLINICAL HISTORY: SOB, cough, fever, left lower lobe crackles TECHNIQUE: Frontal and lateral views of the chest COMPARISON: Previous examination 02/28/2018 and older studies dating back to 2012 FINDINGS: The heart and mediastinal structures are normal in size. The thoracic trachea is deviated to the right without change from previous examination probably secondary to tortuosity of the aorta. There is no pneumothorax or effusion. There is asymmetric opacity identified at the left base on the frontal projection, that has increased in comparison to the previous older radiographs from 2012. Suspect a developing infiltrate. Procedure Note Rinku Wilkins MD - 09/08/2018 EXAMINATION: XR CHEST PA AND LATERAL (GENERIC) CLINICAL HISTORY: SOB, cough, fever, left lower lobe crackles TECHNIQUE: Frontal and lateral views of the chest COMPARISON: Previous examination 02/28/2018 and older studies dating back to 2012 FINDINGS: The heart and mediastinal structures are normal in size. The thoracictrachea is deviated to the right without change from previous examination probably secondary to tortuosity of the aorta. There is no pneumothorax oreffusion. There is asymmetric opacity identified at the left base on the frontal projection, that has increased in comparison to the previous olderradiographs from 2012. Suspect a developing infiltrate. IMPRESSION Suspect developing infiltrate left lower lobe. Thank you for letting us participate in the care of this patient. Forquestions regarding this report, please contact the number below. Electronically signed by: Rinku Wilkins [facility]([phone]), at 09/08/2018 4:48 PM Meena English MD IMG DX ORDERABLES documented in this encounter Visit Diagnoses Diagnosis Pneumonia due to organism Pneumonia due to other specified organism documented in this encounter Administered Medications Inactive Administered Medications - up to 3 most recent administrations Medication Order MAR Action Action Date Dose Rate Site cefTRIAXone (ROCEPHIN) 1 g vial attach to sodium chloride 0.9% 50 mL Mini-Bag Plus 1 g, Intravenous, ONCE, 1 dose, On Tue09/08/18 at 1819, Administer over 30 Minutes, Indication for (Active or Suspected): Pneumonia (Community) New Bag 09/08/2018 7:19 PM EST 1 g 100 mL/hr doxycycline monohydrate (MONODOX) capsule 100 mg 100 mg, Oral, ONCE, 1 dose, On Tue09/08/18 at 1819, STAT, Indication for (Active or Suspected): Pneumonia (Community) Given 09/08/2018 7:20 PM EST 100 mg iohexol (OMNIPAQUE) 350 mg/mL solution 0-200 mL 0-200 mL, Intravenous, ONCE PRN, 1 dose, Starting on Tue09/08/18 at 2107, Until Tue09/08/18 at 2107, Per Protocol, Warning Vesicant/Irritant Medication , Radiology Contrast, Routine Given 09/08/2018 9:07 PM EST 110 mLs documented in this encounter Active and Recently Administered Medications Times are shown in EST. Scheduled Medication Order 09/06/2018 09/07/2018 09/08/2018 cefTRIAXone (ROCEPHIN) 1 g vial attach to sodium chloride 0.9% 50 mL Mini-Bag Plus (COMPLETED) 1 g, Intravenous, ONCE, 1 dose, On Tue09/08/18 at 1819, Administer over 30 Minutes, Indication for (Active or Suspected): Pneumonia (Community) 1918 (New Bag - Prov ider: Celi Macedo RN)194 (Stopped - Provider: Aminah Peguero RN) doxycycline monohydrate (MONODOX) capsule 100 mg (COMPLETED) 100 mg, Oral, ONCE, 1 dose, On Tue09/08/18 at 1819, STAT, Indication for (Active or Suspected): Pneumonia (Community) 1919 (Given - Provid er: Celi Macedo RN) PRN Medication Order 09/06/2018 09/07/2018 09/08/2018 iohexol (OMNIPAQUE) 350 mg/mL solution 0-200 mL (COMPLETED) 0-200 mL, Intravenous, ONCE PRN, 1 dose, Starting on Tue09/08/18 at 2107, Until Tue09/08/18 at 2107, Per Protocol, Warning Vesicant/Irritant Medication , Radiology Contrast, Routine 2106 (Given - Provid er: Serafin Hill) documented in this encounter Care Teams Video Game Maker Relationship Specialty Start Date [place] [address] PCP - General General Internal Medicine 06/28/1810/24 documented as of this encounter
--- OUTSIDE RECORDS SUMMARY | 2024-02-22 00:54 | XMS_ITS | Encounter Summary ---
Author Organization [facility] [place] [address] Care Team Providers Care Sleep Scientist Name Role Phone Yisel Marroquin MD Primary Care Provider [phone] Encounter Details Date Type Department Care Team (Latest Contact Info) Description 02/07/2019 12:30 PM EDT Laboratory Appointment Laboratory at [facility] [address] [place] [id number] Disorder of iron metabolism; Status post bariatric surgery; Intestinal malabsorption, unspecified type; Gastroesophageal reflux disease, esophagitis presence not specified; Vitamin D deficiency; History of diabetes mellitus Social History Tobacco Use Types Packs/Day Years [...] Name Priority Date/Time Associated Diagnosis Comments PTH Routine 02/07/2019 12:41 PM EDT Status post bariatric surgery Intestinal malabsorption, unspecified type Vitamin D deficiency VITAMIN B1, WHOLE BLOOD Routine 02/07/2019 12:41 PM EDT Status post bariatric surgery Intestinal malabsorption, unspecified type IRON AND TIBC Routine 02/07/2019 12:41 PM EDT Disorder of iron metabolism Status post bariatric surgery Intestinal malabsorption, unspecified type Gastroesophageal reflux disease, esophagitis presence not specified VITAMIN D, 25-HYDROXY Routine 02/07/2019 12:41 PM EDT Status post bariatric surgery Intestinal malabsorption, unspecified type Vitamin D deficiency HEMOGLOBIN A1C Routine 02/07/2019 12:41 PM EDT History of diabetes mellitus FOLATE, SERUM Routine 02/07/2019 12:41 PM EDT Status post bariatric surgery Intestinal malabsorption, unspecified type FERRITIN Routine 02/07/2019 12:41 PM EDT Disorder of iron metabolism Status post bariatric surgery Intestinal malabsorption, unspecified type Gastroesophageal reflux disease, esophagitis presence not specified VITAMIN B12 Routine 02/07/2019 12:41 PM EDT Status post bariatric surgery Intestinal malabsorption, unspecified type documented in this encounter Results * (ABNORMAL) Hemoglobin A1c (02/07/2019 12:41 PM EDT) Hemoglobin A1C 5.9(H) 4.3 - 5.6 % [facility] Est Avg Gluc 123 mg/dL [facility] Blood specimen (specimen) 02/07/2019 12:41 PM EDT 02/07/2019 2:07 PM EDT Narrative Resulting Agency Comment Spec In Lab / APD Sidra Del Toro HOUSE BUILDER CHEMISTRY ORDERAB LES [facility] [address] [place] [address] * Folate, serum (02/07/2019 12:41 PM EDT) Folate Lvl 8.6 4.8 - 24.2 ng/mL [facility] Blood specimen (specimen) 02/07/2019 12:41 PM EDT 02/07/2019 3:55 PM EDT Narrative Resulting Agency Comment Spec In Lab / APD Sidra T Alverto VARGAS CHEMISTRY ORDERAB LES Performing Organization Address [facility] Co de Phone Number [facility] [place] [address] * Vitamin D, 25-Hydroxy (02/07/2019 12:41 PM EDT) 25-OH Vit D Total 36 30 - 100 ng/mL [facility] Comment: Deficient <10 ng/mL Insufficient 10 to 29 ng/mL Sufficient 30 to 100 ng/mL Potential Intoxication >100 ng/mL According to the [place] National Osteoporosis Foundation, Vitamin D concentrations >30 ng/mL are sufficient to protect bone health. ??The National Kidney Foundation has similarly stated that patients with Vitamin D concentrations <30ng/mL should be considered to be insufficient or deficient. http://LgDb.com/nkf-guidelines http://LgDb.com/nejm-VitD The [employer] i[employer] Vitamin D Immunoassay detects both 25-OH Vitamin D2 and 25-OH Vitamin D3, but only a total Vitamin D concentration is reported. Blood specimen (specimen) 02/07/2019 12:41 PM EDT 02/08/2019 7:27 AM EDT Narrative Resulting Agency Comment Spec In Lab / APD Sidra Del Toro APRN CHEMISTRY ORDERAB LES Performing Organization Address [facility] Co de Phone Number [facility] [place] [address] * Vitamin B1, whole blood (02/07/2019 12:41 PM EDT) Vit B1 Lvl WB 128 70 - 180 nmol/L [facility] Comment: ADDITIONAL INFORMATION This test was developed and its performance characteristics determined by [facility] in a manner consistent with CLIA requirements. This test has not been cleared or approved by the U.S. Food and Drug Administration. Test Performed by: [facility] [address], [place] [address] Blood specimen (specimen) 02/07/2019 12:41 PM EDT 02/07/2019 5:37 PM EDT Narrative Resulting Agency Comment Spec In Lab / APD Sidra T Alverto HOUSE BUILDER CHEMISTRY ORDERAB LES [facility] [address] [place] [address] * Vitamin B12 (02/07/2019 12:41 PM EDT) Pathologist [facility] Vitamin B-12 603 232 - 1,245 pg/mL [facility] Blood specimen (specimen) 02/07/2019 12:41 PM EDT 02/07/2019 3:55 PM EDT Narrative Resulting Agency Comment Spec In Lab / APD Sidra T Alverto HOUSE BUILDER CHEMISTRY ORDERAB LES Performing Organization Address City/[facility]/ZIP Co de Phone Number [facility] [place] [address] * (ABNORMAL) PTH (02/07/2019 12:41 PM EDT) [facility] PTH 71(H) 15 - 65 pg/mL [facility] Blood specimen (specimen) 02/07/2019 12:41 PM EDT 02/07/2019 3:55 PM EDT Narrative Resulting Agency Comment Spec In Lab / APD Sidra Bray Alverto HOUSE BUILDER CHEMISTRY ORDERAB LES Performing Organization Address City/[facility]/ZIP Co de Phone Number [facility] [place] [address] * (ABNORMAL) Ferritin (02/07/2019 12:41 PM EDT) Ferritin 19(L) 30 - 400 ng/mL [facility] Comment: Pediatric reference ranges not verified at [facility], interpret with caution. Reference ranges for females greater than 50 years of age approach values for men, i.e., 30-400 ng/mL. Blood specimen (specimen) 02/07/2019 12:41 PM EDT 02/07/2019 2:05 PM EDT Narrative Resulting Agency Comment Spec In Lab / APD Sidra Del Toro HOUSE BUILDER CHEMISTRY ORDERAB LES Performing Organization Address City/[facility]/ZIP Co de Phone Number [facility] [address] [place] [address] * (ABNORMAL) Iron and TIBC (02/07/2019 12:41 PM EDT) Iron 64 30 - 150 mcg/dL [facility] TIBC 351 250 - 450 mcg/dL [facility] Iron Saturation 18(L) 20 - 50 % [facility] Blood specimen (specimen) 02/07/2019 12:41 PM EDT 02/07/2019 2:05 PM EDT Narrative Resulting Agency Comment Spec In Lab / APD Sidra Del Toro HOUSE BUILDER CHEMISTRY ORDERAB LES Performing Organization Address City/[facility] Co de Phone Number [facility] [address] [place] [phone] documented in this encounter Visit Diagnoses Diagnosis Disorder of iron metabolism Other disorders of iron metabolism Status post bariatric surgery Bariatric surgery status Intestinal malabsorption, unspecified type Gastroesophageal reflux disease, esophagitis presence not specified Vitamin D deficiency Unspecified vitamin D deficiency History of diabetes mellitus Personal history of other endocrine, metabolic, and immunity disorders documented in this encounter Care Teams Sleep Scientist Relationship Specialty Start Date End Date Yisel Marroquin MD [address] [place] [address] PCP - General 11/13/18 03/05/19 documented as of this encounter
--- OUTSIDE RECORDS SUMMARY | 2024-02-22 00:54 | XMS_ITS | Encounter Summary ---
Author Organization [facility] Address [facility] [place] [address] Care Team Providers Care Concert Manager Name Role Phone Yisel Ventura MD Primary Care Provider [phone] Encounter Details Date Type Department Care Team (Latest Contact Info) Description 09/19/2018 10:59 AM EST - 09/19/2018 2:07 PM EST Hospital En[place] [address] Tyron Mercado MD [facility] [place] [address] Discharge Disposition: Home Social History Tobacco Use [...] Sign Reading Time Taken Comments Blood Pressure 129/117 09/19/2018 1:20 PM EST Pulse 55 09/19/2018 11:34 AM EST Temperature 36.9 ??C (98.5 ??F) 09/19/2018 11:[address] Respiratory Rate - - Oxygen Saturation 96% 09/19/2018 1:25 PM EST Inhaled Oxygen Concentration - - Weight 96.6 kg (213 lb) 09/19/2018 11:34 AM EST Height - - Body Mass Index 36.56 09/11/2018 12:52 PM EST documented in this encounter Discharge Instructions * Discharge Instructions* Jeff Jay RN - 09/19/2018 1:11 PM EST Please call [phone] before 8pm Mon-Fri with problems, questions or concerns. If you call after 8pm or on weekends, call the Hospital at [phone] and ask to speak to the Vendor Representatives television writer and the extracting machine operator will contact that person for you. * Attachments The following attachments cannot be sent through Care Everywhere. * EGD (Upper Endoscopy): Post-op ([place]) documented in this encounter Medications at Time of Discharge Medication Sig Dispensed Refills Start Date End Date tiotropium (SPIRIVA WITH HANDIHALER) 18 mcg Capsule, w/Inhalation Device Inhale 18 mcg into the lungs daily. 02/07/2019 aspirin 81 mg Tablet, Delayed Release (E.C.) Take 81 mg by mouth daily. 12/12/2018 isosorbide mononitrate (IMDUR) 60 mg Tablet Sustained [...] MOUTH DAILY. 30 tablet 3 06/06/2013 02/07/2019 prazosin (MINIPRESS) 2 mg capsule Take 6 [...] mg by mouth every other day. 11/15/2018 clopidogrel (PLAVIX) 75 mg tablet Take 1 [...] 09/23/2010 06/01/2019 documented as of this encounter H&P Notes * Andrés Teixeira MD - 09/19/2018 12:33 PM EST PROBLEM LIST Patient Active Problem List Diagnosis Code ??? Cervicalgia M54.2 ??? Chronic pain G89.29 ??? Lumbago M54.5 ??? Atherosclerosis of [place] coronary artery of [place] heart without angina pectoris I25.10 ??? Hypertension I10 ??? Smokes cigarettes F17.210 ??? Hypothyroidism E03.9 ??? GERD (gastroesophageal reflux disease) K21.9 ??? Schizophrenia F20.9 ??? Anxiety F41.9 ??? Depression F32.9 ??? Post traumatic stress disorder (PTSD) F43.10 ??? Hidradenitis suppurativa L73.2 ??? Obesity, S/P remote gastric bypass in 1995, prior VBG E66.9 ??? Osteoporosis M81.0 HISTORY OF PRESENT ILLNESS Jeannie Rico is a 58 y.o. woman with a history of gastric bypass who presents for endoscopic evaluation of dysphagia. She has held her Plavix for 1 week. MEDICATIONS No current facility-administered medications on file prior to encounter. Current Outpatient Medications on File Prior to Encounter Medication Sig Dispense Refill ??? tiotropium (SPIRIVA WITH HANDIHALER) 18 mcg Capsule, w/Inhalation Device Inhale 18 mcg into thelungs daily. ??? lisinopril (PRINIVIL;ZESTRIL) 20 mg Tablet Take 20 mg by mouth daily. ??? sertraline (ZOLOFT) 50 mg Tablet 1 tablet daily. ??? tiZANidine (ZANAFLEX) 4 mg Tablet Take 4 mg by mouth 3 times daily. ??? QUEtiapine (SEROQUEL) 50 mg Tablet Take 75 mg by mouth daily. ??? omeprazole (PRILOSEC) 20 mg Capsule, Delayed Release(E.C.) Take 20 mg by mouth 2 times daily. ??? lamoTRIgine (LAMICTAL) 200 mg Tablet Take 200 mg by mouth daily. ??? QUEtiapine (SEROQUEL) 25 mg tablet Take 50 mg by mouth as needed. 1-4 times per day ??? simvastatin (ZOCOR) 40 mg tablet Take 1 tablet by mouth nightly. 90 tablet 3 ??? metoprolol succinate (TOPROL-XL) 25 mg 24 hr tablet TAKE 1 TABLET BY MOUTH DAILY. 30 tablet 3 ??? prazosin (MINIPRESS) 2 mg capsule Take 6 mg by mouth nightly. ??? traZODone (DESYREL) 100 mg tablet Take 200 mg by mouth nightly. ??? albuterol (PROAIR HFA) 90 mcg/actuation inhaler Inhale 2 puffs into the lungs every 4 hours as needed. Use with spacer ??? ferrous sulfate 325 mg (65 mg iron) EC tablet Take 325 mg by mouth every other day. ??? clopidogrel (PLAVIX) 75 mg tablet Take 1 tablet by mouth daily. 30 tablet 6 ??? methocarbamol (ROBAXIN) 500 mg tablet Take 500 mg by mouth 4 times daily. ??? fluticasone-salmeterol (ADVAIR DISKUS) 500-50 mcg/dose diskus inhaler 1 Disk(s), Inh, Twice daily ??? levothyroxine (SYNTHROID) 50 mcg tablet 50MCG, PO, Once daily ??? aspirin 81 mg Tablet, Delayed Release (E.C.) Take 81 mg by mouth daily. ??? [DISCONTINUED] doxycycline (VIBRAMYCIN) 100 mg Capsule Take 1 capsule by mouth 2 times daily for 10 days. 20 capsule 0 ??? isosorbide mononitrate (IMDUR) 60 mg Tablet Sustained Release 24 hr Take 1 tablet by mouth daily. 90 tablet 3 ??? ASCORBIC ACID, VITAMIN C, ORAL Take 1,000 mg by mouth daily. ??? polyethylene glycol (MIRALAX) 17 gram/dose Powder Take 1 g by mouth daily. ??? alendronate (FOSAMAX) 70 mg Tablet Take 70 mg by mouth daily. ??? promethazine (PHENERGAN) 25 mg tablet Take 25 mg by mouth 3 times daily. ??? TAMSULOSIN HCL (TAMSULOSIN ORAL) Take by mouth daily. ??? [DISCONTINUED] meloxicam (MOBIC) 7.5 mg tablet Take 7.5 mg by mouth 2 times daily. ??? nitroGLYcerin (NITROSTAT) 0.[address] 1 tablet under the tongue every 5 minutes as needed for Chest pain. Do not use more than 3 doses in 15 minute time period 90 tablet 3 PHYSICAL EXAM: Blood pressure 136/86, pulse 55, temperature 36.9 ??C (98.5 ??F), temperature source Oral, weight 96.6 kg (213 lb), SpO2 95 %. GEN: Alert, cooperative. Pleasant. In NAD MP II ASA III HEENT: No oropharyngeal lesions. Neck supple. No masses. Thyroid symmetric LUNGS: CTAB CARD: RRR without m/g/r ABD: Obese. Active BS. Soft. Benign. No masses. No HSM. No succussion splash. No bruits RECENT LABS No results found for this or any previous visit (from the past 24 hour(s)). ASSESSMENT AND PLAN Jeannie Rico is a 58 y.o. woman who presents for endoscopic evaluation. Risks extensively discussed including bleeding, infection, reaction to anesthesia, perforation, pancreatitis (if applicable), bile duct injury (if applicable), missing a cancer (if applicable) and/or other unforseen complication. Consent signed and patient well informed of the risks of the procedure. documented in this encounter Plan of Treatment Not on file documented as of this encounter Procedures Procedure Name Priority Date/Time Associated Diagnosis Comments SURGICAL PATHOLOGY REPORT Routine 09/19/2018 12:59 PM EST SPECIMEN TO PATHOLOGY Routine 09/19/2018 12:59 PM EST SPECIMEN TO PATHOLOGY Routine 09/19/2018 12:59 PM EST SPECIMEN TO PATHOLOGY Routine 09/19/2018 12:59 PM EST UPPER GASTROINTESTINAL ENDOSCOPY,WITH BIOPSY SINGLE OR MULTIPLE (WRVU 2.39) 09/19/2018 12:41 PM EST dysphagia - CONSULT UPPER GI ENDOSCOPY Routine 09/19/2018 12 :17 PM EST documented in this encounter Results * Surgical Pathology Report (09/19/2018 12:59 PM EST) FINAL DIAGNOSIS (AP) [id number] ? Location: 4T; EA07; A The signing pathologist has (i) examined the relevant preparation(s) for the specimen(s) and (ii) rendered or confirmed the diagnosis(es). . ?Surgical Pathology DIAGNOSIS A - Gastric pouch, ??biopsy: - ??Body/fundic-t ype mucosa with parietal cell hyperplasia consistent with PPI effect. B - Z line at 35 cm, ?? biopsy: - ??Squamocolumna r junctional mucosa (cardia type) with mild chronic inflammation. There is no evidence of intestinal metaplasia. C - Mid esophagus, ??biopsy: - ??Squamous mucosa negative for diagnostic abnormality. Electronically signed by: ??John Vigil MD Verified: ??09/22/2018 ?Pathologist Performed at: ??-[facility] [place], [place], [place] CLINICAL INFORMATION Specimen Submitted: A - Gastric pouch r/o H. Pylori B - Z-line at 35cm bx r/o ardon's C - Mid esophagus bx r/o EoE Clinical History and Diagnosis: 58-year-old with history of dysphagia SPECIMEN PROCESSING A - Labeled/Fixativ e: Gastric pouch, formalin. Quantity/Size: Four, 0.1-0.4 cm. Tissue Description: Soft, pink tissues. Sections/Proces sing: Submitted en toto ??in 1 cassette labeled A1. B - Labeled/Fixativ e: Z line at 35 cm, formalin. Quantity/Size: Three, 0.2-0.4 cm. Tissue Description: Soft, pink tissues. Sections/Proces sing: Submitted en toto ??in 1 cassette labeled B1. C - Labeled/Fixativ e: Mid esophageal biopsy, formalin. Quantity/Size: Four, averaging 0.2 cm. Tissue Description: Soft, pink tissues. Sections/Proces sing: Submitted en toto ??in 1 cassette labeled C1. ??ejr 09/22/2018 3:24 PM [facility] GI Biopsy 09/19/2018 12:5 9 PM EST 09/19/2018 12:59 PM EST GI Biopsy 09/19/2018 12:5 9 PM EST 09/19/2018 12:59 PM EST GI Biopsy 09/19/2018 12:5 9 PM EST 09/19/2018 12:59 PM EST Tyron Mercado MD PATHOLOGY/CYTOLOGY ORDERABLES Performing Organization Address [facility]/ZIP Co de Phone Number [facility] [place] [address] * Specimen to Pathology (09/19/2018 12:59 PM EST) AP Specimen 09/19/2018 12:5 9 PM EST 09/19/2018 12:[address] [facility] - 09/19/2018 12:59 PM EST Specimen requisition ordered. ??Separate Pathology report to follow Tyron eMrcado MD PATHOLOGY/CYTOLOGY ORDERABLES Performing Organization Address [facility] Co de Phone Number [facility] [place] [address] * Specimen to Pathology (09/19/2018 12:59 PM EST) AP Specimen 09/19/2018 12:5 9 PM EST 09/19/2018 12:[address] [facility] - 09/19/2018 12:59 PM EST Specimen requisition ordered. ??Separate Pathology report to follow Tyron Mercado MD PATHOLOGY/CYTOLOGY ORDERABLES Performing Organization Address [facility] Co de Phone Number [facility] [place] [address] * Specimen to Pathology (09/19/2018 12:59 PM EST) AP Specimen 09/19/2018 12:5 9 PM EST 09/19/2018 12:[address] [facility] - 09/19/2018 12:59 PM EST Specimen requisition ordered. ??Separate Pathology report to follow Tyron Mercado MD PATHOLOGY/CYTOLOGY [place] [address] * UPPER GI ENDOSCOPY (09/19/2018 12:17 PM EST) Pathologist [facility] UPPER GI ENDOSCOPY [facility] Endoscopy Procedure Date: 09/19/2018 12:17 PM ? Patient Name: Jeannie Rico ? N: [id number] ? Date of : 1960 ? Age: 58 ? Order #: [id number] ? Instrument Name: [id number] ? Procedure: ? Upper GI endoscopy Indications: ? Dysphagia Providers: ? Tyron Mercado MD, Andrés Teixeira, ? Jeannie Alcazar, FABIANA, Anaid Ardon, ? Radiation Oncology Manager Referring MD: ?Yisel Ventura MD Medicines: ? Monitored Anesthesia Care Complications: ? No immediate complications. Procedure: ? Pre-Anesthesia Assessment: ? - Prior to the procedure, a History ? and Physical was performed, and ? patient medications and allergies ? were reviewed. The patient is ? competent. The risks and benefits of ? the procedure and the sedation ? options and risks were discussed with ? the patient. All questions were ? answered and informed consent was ? obtained. Patient identification and ? proposed procedure were verified by ? the physician in the pre-procedure ? area. Mental Status Examination: ? alert and oriented. Airway ? Examination: normal oropharyngeal ? airway and neck mobility. Respiratory ? Examination: clear to auscultation. ? CV Examination: normal. Prophylactic ? Antibiotics: The patient does not ? require prophylactic antibiotics. ? Prior Anticoagulants: The patient ? tppk Plavix 7 days ago. ASA Grade ? Assessment: III - A patient with ? severe systemic disease. After ? reviewing the risks and benefits, the ? patient was deemed in satisfactory ? condition to undergo the procedure. ? The anesthesia plan was to use ? monitored anesthesia care (MAC). ? Immediately prior to administration ? of medications, the patient was ? re-assessed for adequacy to receive ? sedatives. The heart rate, ? respiratory rate, oxygen saturations, ? blood pressure, adequacy of pulmonary ? ventilation, and response to care ? were monitored throughout the ? procedure. The physical status of the ? patient was re-assessed after the ? procedure. ? The procedure, indications, benefits, ? risks and alternatives were explained ? to the patient. Specifically ? discussed were potential ? complications including, but not ? limited to, bleeding, perforation, ? infection, missing a cancer, and ? adverse medication reactions. The ? Endoscope was introduced through the ? mouth, and advanced to the jejunum. ? The patient tolerated the procedure ? well. The upper GI endoscopy was ? accomplished without difficulty. The ? patient tolerated the procedure well. ? Findings: ? The esophagus was normal until the distal esophagus ? at 32 cm. The esophagus was somewhat atrophic ? appearing from 32-35 cm with what appeared to be ? linear ulcerations likely consistent with reflux. At ? 35 cm there was an irregular z-line. Biopsies were ? taken of the esophagus randomly and of the irregular ? z-line in two bottles. ? The gastric pouch measured from 35-40 cm. It was ? atrophic appearing. The GG staple line was not ? disrupted. There was no evidence of ulceration in the ? pouch or at the GJ anastomosis. Biopsies were taken ? randomly of the pouch. ? The jejunal limb was widely patent without evidence ? of stricture. ? Moderate Sedation: ? Not applicable - See Anesthesia documentation Impression: ?- Irregular z-line ? - Ulcerated appearing distal esophagus ? - Atrophic appearing stomach Recommendation: ?- Await pathology results ? - Continue PPI ? - Start Plavix in 48 hours ? Attending Participation: ? I personally performed the entire procedure. ? ___ Tyron Mercado MD 09/19/2018 1:06:02 PM This report has been signed electronically. Number of Addenda: 0 Note Initiated On: 09/19/2018 12:17 PM PROVATION 09/19/2018 12:1 7 PM EST Yisel Ventura MD GENERAL SURGICAL ORD [facility] PROVATION documented in this encounter Visit Diagnoses Not on filedocumented in this encounter Administered Medications Inactive Administered Medications - up to 3 most recent administrations Medication Order MAR Action Action Date Dose Rate Site lactated Ringers infusion 100 mL/hr, Intravenous, CONTINUOUS, Starting on Tue09/19/18 at 1145, Until Tue09/19/18 at 1607, Endoscopy (Day of Procedure) New Bag 09/19/2018 11:45 AM EST 100 mL/hr 100 mL/hr documented in this encounter Active and Recently Administered Medications Times are shown in EST. Continuous Medication Order 09/17/2018 09/18/2018 09/19/2018 lactated Ringers infusion 100 mL/hr, Intravenous, CONTINUOUS, Starting on Tue09/19/18 at 1145, Until Tue09/19/18 at 1607, Endoscopy (Day of Procedure) 1145 (New Bag - Prov ider: Luci Cartwright RN)1304 (Anesthesia Volume Adjustment - Provider: Francisco Javier Lord MD) documented in this encounter Care Teams Concert Manager Relationship Specialty Start Date End Date Yisel [place] [address] PCP - General General Internal Medicine 06/28/1810/24 documented as of this encounter
--- OUTSIDE RECORDS SUMMARY | 2024-02-22 00:54 | XMS_ITS | Encounter Summary ---
[place] [address] Care Team Providers Care Technical System Analyst Name Role Phone Yisel Marroquin MD Primary Care Provider [phone] Encounter Details Date Type Department Care Team (Late st Contact Info) Description 04/12/2019 Telephone Primary Care at [facility] [address] [place] [id number] Shannon Cruz RN Social History Tobacco Use [...] Telephone Encounter - Shannon Cruz, RN - 04/12/2019 1:13 PM EDT Patel called for clarification on isosorbide mononitrate and lisinopril. I called pharmacy and patient had already clarified dosages. documented in this encounter Plan of Treatment Not on file documented as of this encounter Visit Diagnoses Not on filedocumented in this encounter Care Teams Technical System Analyst Relationship Specialty Start Date End Date Yisel Marroquin MD [address] [place] [address] PCP - General General Internal Medicine 03/06/1911/22 documented as of this encounter
--- OUTSIDE RECORDS SUMMARY | 2024-02-22 00:54 | XMS_ITS | Encounter Summary ---
Author Organization [facility] [place] [address] Care Team Providers Care Ultimate Hoops Scoreboard Operator Name Role Phone Yisel Marroquin MD Primary Care Provider [phone] Reason for Visit * Reason Comments Follow-up Encounter Details Date Type Department Care Team (Late st Contact Info) Description 05/04/2019 2:00 PM EDT [facility] [address] [place] [phone] Yisel Marroquin MD [address] [place] [address] Asthma with acute exacerbation, unspecified asthma severity, unspecified whether persistent; Pneumonia of both lower lobes due to infectious organism; Smokes cigarettes Social History Tobacco Use Types Packs/Day Years [...] Sign Reading Time Taken Comments Blood Pressure 144/68 05/04/2019 2:05 PM EDT Pulse 68 05/04/2019 2:05 PM EDT Temperature 37.3 ??C (99.1 ??F) 05/04/2019 2:05 PM ED T Respiratory Rate - - Oxygen Saturation 96% 05/04/2019 2:05 PM EDT Inhaled Oxygen Concentration - - Weight 104.1 kg (229 lb 9.6 oz) 05/04/2019 2:05 PM EDT Height 162 cm (5' 3.78) 05/04/2019 2:05 PM EDT Body Mass Index 39.68 05/04/2019 2:05 PM EDT documented in this encounter Progress Notes * Yisel Marroquin MD - 05/04/2019 2:00 PM EDT Images from the original note were not included. Subjective: Patient ID: Jeannie Rico is a 58 y.o. female. Asthma and lung issues: The current episode started in the past two weeks. She has felt feverish but does not have a thermometer at home. Associated symptoms include congestion, productive coughing with yellow thick mucous,ear pain, headaches that she notices more when she stands up as throbbing pain, joint pain, joint swelling, Rhinorrhea with thick green nasal discharge, sinus pain, sneezing, a sore throat, swollen glands and wheezing. She has tried sleep, inhalers, nebulizer, Nyquil and Mucinex, , NSAIDs, decongestant for the symptoms. The treatment provided mild temporary relief. Worse in the past week. Hypotension: She is doing better on less BP meds and BP has been ok at home checks, no more dizzy spells. BP Readings from Last 3 Encounters: 05/04/19 144/68 04/11/19 124/64 02/07/19 118/62 REVIEW OF SYSTEMS 05/04/2019 Constitutional Weakness, Fatigue, lack of energy, Fever or chills, Drowsiness, Pain Ear / nose / throat / mouth Dry mouth, Change in the way food tastes, Difficulty swallowing, Hoarseness, Sore throat Eyes Don't know Respiratory Wheezing, Cough, Thick mucous or spit (Sputum or Phlegm), Shortness of breath Cardiovascular None of the above Gastrointestinal Trouble swallowing, Nausea, vomiting, Appetite problems Skin, hair Dry skin Musculoskeletal Joint stiffness, Back pain, Joint pain, Muscle stiffness, Reduced range of motion, Unable to walk/difficulty walking Neurological Balance difficulty, dizziness, Headaches, Muscular weakness [...] rashes or concerning lesions on exposed skin BP 144/68 (BP Location (NBP): Left arm, Patient Position: Sitting) Pulse 68 Temp 37.3 ??C (99.1??F) (Oral) Ht 162 cm (5' 3.78) Wt 104.1 kg (229 lb 9.6 oz) SpO2 96% BMI 39.68 kg/m?? Lab Results Component Value Date WBC [...] 58 y/o F with ashtma and smoking hx presents with CAP. Would favor treatment with abx and steroids at this time. If she worsens she needs to go to hospital. She has stopped smoking for the time beingwhich I congratulated her on. Problem List Items Addressed This Visit Smokes cigarettes Other Visit Diagnoses Asthma with acute exacerbation, unspecified asthma severity, unspecified whether persistent Relevant Medications predniSONE (DELTASONE) 20 mg Tablet amoxicillin-clavulanate (AUGMENTIN) 875-125 mg Tablet Pneumonia of both lower lobes due to infectious organism Relevant Medications predniSONE (DELTASONE) 20 mg Tablet amoxicillin-clavulanate (AUGMENTIN) 875-125 mg Tablet Your Medications Accurate as of May 04, 2019 2:41 PM. If you have any questions, ask your nurse or doctor. New Medications Dose Details amoxicillin-clavulanate 875-125 mg Tab Commonly known as: AUGMENTIN Take 1 tablet by mouth 2 times daily. Started by: Yisel Marroquin MD 1 tablet Quantity: 20 tablet Refills: 0 predniSONE 20 mg Tab Commonly known as: DELTASONE Take 3 tablets by mouth daily for 3 days, THEN 2 tablets daily for 3 days, THEN 1 tablet daily for 3 days. Start taking on: May 04, 2019 Started by: Yisel Marroquin MD Quantity: 18 tablet Refills: 3 Continued medications, unchanged Dose Details ACIDOPHILUS Cap TAKE TWO (2) CAPSULES BY MOUTH TWICE A DAY Generic drug: lactobacillus Quantity: 112 capsule Refills: 5 ADVAIR DISKUS 500-50 mcg/dose Dsdv 1 Disk(s), Inh, Twice daily Generic drug: fluticasone propion-salmeterol Refills: 0 alendronate 70 mg Tab Commonly known as: FOSAMAX Take 1 tablet by mouth every 7 days. Take in AM with full glass of water, on an empty stomach. Do not lie down for 30 min. 70 mg Quantity: 52 tablet Refills: 0 aspirin 81 mg Tbec Take [...] day as needed 600 mg Refills: 0 isosorbide mononitrate 30 mg Tablet sr Commonly known as: IMDUR Take 1 tablet by mouth daily. 30 mg Quantity: 90 tablet Refills: 3 lamoTRIgine 200 mg Tab Commonly known as: LaMICtal Take 200 mg by mouth daily. 200 mg Refills: 0 levothyroxine 50 mcg Tab Commonly known as: SYNTHROID 50MCG, PO, Once daily Refills: 0 lisinopril 10 mg Tab Commonly known as: PRINIVIL;ZESTRIL Take 1 tablet by mouth daily. 10 mg Quantity: 90 tablet Refills: 3 MARIJUANA ORAL Take by [...] as of this encounter Visit Diagnoses Diagnosis Asthma with acute exacerbation, unspecified asthma severity, unspecified whether persistent Pneumonia of both lower lobes due to infectious organism Smokes cigarettes Tobacco use disorder documented in this encounter Care Teams Ultimate Hoops Scoreboard Operator Relationship Specialty Start Date End Date Yisel Marroquin MD [address] [place] [address] PCP - General General Internal Medicine 03/06/1911/22 documented as of this encounter
--- OUTSIDE RECORDS SUMMARY | 2024-02-22 00:54 | XMS_ITS | Encounter Summary ---
Author Organization [facility] [place] [address] Care Team Providers Care Vulcanizer Operator Name Role Phone Yisel Marroquin MD Primary Care Provider [phone] Encounter Details Date Type Department Care Team (Late st Contact Info) Description 04/06/2019 Telephone Pharmacy at [facility] [address] [place] [id number] Lyly Dixon, [facility] Social History Tobacco Use Types Packs/Day Years [...] encounter Miscellaneous Notes * [facility] 9[facility]43 AM EDT Jeannie Lawson Trisha [id number] is scheduled for an office visit with on 04/11/19 at 11:30. Pharmacist provided allergy and medication reconciliation review with patient via a telephone call prior to office visit. Patient reports compliance in taking all her chronic maintenance medications, except Advair which she reported taking not taking 1 puff twice daily. She does use her Spiriva daily as directed though.Educated pt on importance of med adherence and compliance in using her inhaler. Pt verbalized understanding. Did not have flu shot this season yet, recommend asking PCP for flu shot at [facility]. Medications 04/09/19 0940 Medication Sig Taking? ibuprofen (ADVIL;MOTRIN) 600 mg Tablet Take 600 mg by mouth 2 times daily as needed for Pain. Indications: up to two times per day as needed Yes albuterol (PROVENTIL) 2.5 mg /3 mL (0.083 %) Solution for Nebulization Take 2.5 mg by nebulization every 4 hours as needed for Wheezing. Indications: Only use as needed Yes tiotropium bromide (SPIRIVA RESPIMAT) 2.5 mcg/actuation Mist Inhale 2 puffs into the lungs nightly.Yes isosorbide mononitrate (IMDUR) 60 mg Tablet Sustained Release 24 hr TAKE 1 TABLET BY MOUTH DAILY. Yes metoprolol succinate (TOPROL-XL) 25 mg Tablet Sustained Release 24 hr Take 0.5 tablets by mouth daily. Yes tiZANidine (ZANAFLEX) 4 mg Tablet Take 1 tablet by mouth 3 times daily. Yes MARIJUANA ORAL Take by mouth. Yes omeprazole (PRILOSEC) 20 mg Capsule, Delayed Release(E.C.) Take 1 capsule by mouth 2 times daily for 180 days. Take 30 minutes before breakfast and in the evening Yes lisinopril (PRINIVIL;ZESTRIL) 20 mg Tablet Take 1 tablet by mouth daily. Yes simvastatin (ZOCOR) 40 mg Tablet Take 1 tablet by mouth nightly. Yes cyanocobalamin, vitamin B-12, (VITAMIN B-12) 1,000 mcg Tablet Take 1 tablet by mouth once a week. Yes aspirin 81 mg Tablet, Delayed Release (E.C.) Take 1 tablet by mouth daily. Yes cholecalciferol, Vitamin D3, 2,000 unit Tablet Take 1 tablet by mouth daily. Yes ACIDOPHILUS Capsule TAKE TWO (2) CAPSULES BY MOUTH TWICE A DAY Yes sertraline (ZOLOFT) 50 mg Tablet Take 50 mg by mouth daily. Yes lamoTRIgine (LAMICTAL) 200 mg Tablet Take 200 mg by mouth daily. Yes prazosin (MINIPRESS) 2 mg capsule Take 6 mg by mouth nightly. Yes traZODone (DESYREL) 150 mg Tablet Take 150 mg by mouth nightly. Yes albuterol (PROAIR HFA) 90 mcg/actuation HFA Aerosol Inhaler Inhale 2 puffs into the lungs every 4 hours as needed. Use with spacer Yes clopidogrel (PLAVIX) 75 mg tablet Take 1 tablet by mouth daily. Yes fluticasone-salmeterol (ADVAIR DISKUS) 500-50 mcg/dose diskus inhaler 1 Disk(s), Inh, Twice daily Patient taking differently: Inhale 1 puff into the lungs 2 times daily. Yes levothyroxine (SYNTHROID) 50 mcg tablet 50MCG, PO, Once daily Patient taking differently: Take 50 mcg by mouth daily. Yes Medications Discontinued During This Encounter Medication Reason ??? pantoprazole (PROTONIX) 20 mg Tablet, Delayed Release (E.C.) No longer taking ??? isosorbide mononitrate (IMDUR) 60 mg Tablet Sustained Release 24 hr Duplicate ??? ranitidine (ZANTAC) 150 mg Tablet No longer taking After careful review of allergy and medication list, there are no other issues to report. Thank you, Lyly Dixon [facility] [phone] 04/09/19 documented in this encounter Plan of Treatment Not on file documented as of this encounter Visit Diagnoses Not on filedocumented in this encounter Care Teams Vulcanizer Operator Relationship Specialty Start Date End Date Yisel Marroquin MD [address] [place] [address] PCP - General General Internal Medicine 03/06/1911/22 documented as of this encounter
--- OUTSIDE RECORDS SUMMARY | 2024-02-22 00:54 | XMS_ITS | Encounter Summary ---
[place] [address] Care Team Providers Care Credit Director Name Role Phone Yisel Marroquin MD Primary Care Provider Reason for Visit * Reason Onset Date Comments Medication Refill Medication Refill 12/05/2018 Encounter Details Date Type Department Care Team (Late st Contact Info) Description 12/04/2018 Refill Primary Care at [facility] [address] [place] [phone] Yisel Marroquin MD [address] [place] [address] Social History Tobacco Use Types Packs/Day Years [...] filedocumented in this encounter Care Teams Credit Director Relationship Specialty Start Date End Date Yisel Marroquin MD [address] [place] [address] PCP - General 11/13/18 03/05/19 documented as of this encounter
--- OUTSIDE RECORDS SUMMARY | 2024-02-22 00:54 | XMS_ITS | Encounter Summary ---
Author Organization [facility] [place] [address] Care Team Providers Care Mill Feeder Name Role Phone Yisel Marroquin MD Primary Care Provider Reason for Referral * Diagnostic Test (Routine) - Closed Specialty Diagnoses / Procedures Referred By Contac t Referred To Contact Radiology Diagnoses Long-term use of high-risk medication Other osteoporosis without current pathological fracture Procedures DXA Central-Spine, Hip, And/Or Whole Body (Generic) Yisel Marroquin MD [address] [place] [address] [facility] [address] [place] [address] Referral ID Status Reason Start Date Expiration Date V isits Requested Visits Authorized [id number] Closed Specialty Service Requested 02/07/2019 02/07/2020 1 1 Reason for Visit * Reason Comments Follow-up Encounter Details Date Type Department Care Team (Late Contact Info) Description 02/07/2019 11:30 AM EDT Office Visit Primary Care at [address] [phone] Yisel Marroquin MD [address] [place] [address] Smokes cigarettes; Cervicalgia; Essential hypertension; Gastroesophageal reflux disease, esophagitis presence not specified; Class 2 obesity with body mass index (BMI) of 38.0 to 38.9 in adult, unspecified obesity type, unspecified whether serious comorbidity present; Long-term use of high-risk medication; Other osteoporosis without current pathological fracture; Nicotine dependence, cigarettes, uncomplicated; Tobacco abuse counseling Social History Tobacco Use Types Packs/Day Years [...] Reading Time Taken Comments Blood Pressure 118/62 02/07/2019 11:31 AM EDT Pulse 65 02/07/2019 11:31 AM EDT Temperature - - Respiratory Rate - - Oxygen Saturation 95% 02/07/2019 11: 31 AM EDT Inhaled Oxygen Concentration - - Weight 101.9 kg (224 lb 9.6 oz) 019 11:31 AM EDT Height 162 cm (5' 3.78) 02/07/2019 11: 31 AM EDT Body Mass Index 38.82 02/07/2019 11:31 AM EDT documented in this encounter Patient Instructions * Patient Instructions* Yisel Marroquin MD - 02/07/2019 11:30 AM EDT Use the hydrocortisone cream to your skin for rash twice daily for two weeks. If you have medication questions, you can always have the specialist send the question to me beforethey change the meds. Take a walk before you have a snack. Drink a seltzer or water instead of soda. I'd like you to do all your labs today (already ordered by Sidra) documented in this encounter Progress Notes * Yisel Marroquin MD - 02/07/2019 11:30 AM EDT Images from the original note were not included. Subjective: Patient ID: Jeannie Rico is a 58 y.o. female. HPI Skin Rash: Dry Patches of skin she would like checked. She has not used any creams on these. They are not itchy, present on upper R arm. Diabetes Follow-up: She does not check her blood sugars at home. She is not prescribed insulin. She is on no medications. She has been trying to follow a carbohydrate controlled diet. Her dietary downfall is summer'. She does drink sweetened beverages, Pepsi 3-4 a week She states she exercises regularly, does yoga every night. Last 3 Hemoglobin A1Cs Lab Results Component Value Date HA1C 5.6 (External Lab) 01/04/2018 HA1C 6.3 (ExtH) 02/07/2017 HA1C 5.8 (External Lab) 09/20/2016 HYPERTENSION: She has not been checking her blood pressure at home. She is currently prescribed Cozaar oral, lisinopril 40 mg oral tablet, metoprolol succinate 25 mg oral tablet extended release 24 hr, and prazosin 2 mg oral capsule for her blood pressure. She does take her blood pressure medicine on a regular basis. She has not noticed side effects from her medication regimen. She is not following a low salt diet. Asthma: Using nebs and this helps her a lot. Pain: She uses MJ three times a day for pain, anxiety and sleep. This helps her a lot and she has been able to stop other meds including opioids for this. REVIEW OF SYSTEMS 02/07/2019 Constitutional Pain Ear / nose / throat / mouth None of the above Eyes Blurry vision, Double vision, Dry eyes, Other eye problems Respiratory Cough Cardiovascular None of the above Gastrointestinal None of the above Skin, hair Rash, Dry skin, Itching, Sweats, Changes in skin Musculoskeletal Joint stiffness, Back pain, Muscle stiffness, Reduced range of motion, Unable to walk/difficulty walking Neurological Balance difficulty, dizziness, Headaches, Numbness, tingling, Muscular weakness Hematologic / Lymphatic Easy bruising or bleeding, Night sweats Genitourinary None of the above Objective: Physical Exam Gen: Awake, alert, oriented, no distress, obese white female, leather case finisher at side HEENT: Dry mucus membranes. CV: Regular rate and rhythm, S1/S2 normal, no extra sounds noted. Pulm: Clear to auscultation bilaterally, no crackles or wheezing. Abdominal: BS+, non-distended, non-tender, no masses noted. Extremities: Warm, posterior tibial, dorsalis pedis pulses 2+ bilaterally. Neuro: Normal speech, moving all extremities equally. Psych: Normal Mood and affect Skin: scabbed lesions on upper R arm, olecranon with rough flaking skin BP 118/62 (BP Location (NBP): Right arm, Patient Position: Sitting) Pulse 65 Ht 162 cm (5' 3.78) Wt 101.9 kg (224 lb 9.6 oz) SpO2 95% BMI 38.82 kg/m?? Wt Readings from Last 3 Encounters: 02/07/19 101.9 kg (224 lb 9.6 oz) 01/05/19 101 kg (222 lb 10.6 oz) 11/15/18 100.7 kg (221 lb 14.4 oz) Lab Results Component Value Date WBC [...] follow up also has a rash today. Use CS cream for rash. Will recheck A1C, decrease sodas and increase walking. Wrote MJ cert today. Pt wants to stop cigs by decreasing over time, down to 10 cigs by next visit Problem List Items Addressed This Visit Cervicalgia Hypertension Smokes cigarettes GERD (gastroesophageal reflux disease) Obesity, S/P remote gastric bypass in 1995, prior VBG Osteoporosis Relevant Orders DXA Central-Spine, Hip, And/Or Whole Body (Generic) Other Visit Diagnoses Long-term use of high-risk medication Relevant Orders DXA Central-Spine, Hip, And/Or Whole Body (Generic) Your Medications Accurate as of 02/07/19 1:25 PM. If you have any questions, ask your nurse or doctor. Continued medications, unchanged Dose Details ACIDOPHILUS Cap TAKE TWO (2) CAPSULES BY MOUTH TWICE A DAY Generic drug: lactobacillus Quantity: 112 capsule Refills: 5 ADVAIR DISKUS 500-50 mcg/dose Dsdv 1 Disk(s), Inh, Twice daily Generic drug: fluticasone propion-salmeterol Refills: 0 ASCORBIC ACID (VITAMIN C) ORAL Take 1,000 mg by mouth daily. 1000 mg Refills: 0 aspirin 81 mg Tbec Take 1 tablet by mouth daily. 81 mg Quantity: 28 tablet Refills: 5 cholecalciferol (Vitamin D3) 2,000 unit Tab Take 1 tablet by mouth daily. 2000 Units Quantity: 28 tablet Refills: 5 clopidogrel 75 mg Tab Commonly known as: PLAVIX Take 1 tablet by mouth daily. 75 mg Quantity: 30 tablet Refills: 6 cyanocobalamin (vitamin B-12) 1,000 mcg Tab Commonly known as: VITAMIN B-12 Take 1 tablet by mouth once a week. 1000 mcg Quantity: 4 tablet Refills: 5 isosorbide mononitrate 60 mg Tablet sr Commonly known as: IMDUR Take 1 tablet by mouth daily. 60 mg Quantity: 90 tablet Refills: 3 lamoTRIgine 200 mg Tab Commonly known as: LaMICtal Take 200 mg by mouth daily. 200 mg Refills: 0 levothyroxine 50 mcg Tab Commonly known as: SYNTHROID 50MCG, PO, Once daily Refills: 0 lisinopril 20 mg Tab Commonly known as: PRINIVIL;ZESTRIL Take 1 tablet by mouth daily. 20 mg Quantity: 90 tablet Refills: 2 MARIJUANA ORAL Take by mouth. Refills: 0 methocarbamol 500 mg Tab Commonly known as: ROBAXIN Take 500 mg by mouth 4 times daily. 500 mg Refills: 0 metoprolol succinate 25 mg Tablet sr Commonly known as: TOPROL-XL TAKE 1 TABLET BY MOUTH DAILY. Quantity: 30 tablet Refills: 3 nitroGLYcerin 0.4 mg Subl Commonly known as: NITROSTAT Place 1 tablet under the tongue every 5 minutes as needed for Chest pain. Do not use more than 3 doses in 15 minute time period 0.4 mg Quantity: 90 tablet Refills: 3 omeprazole 20 mg Cpdr Commonly known as: PriLOSEC Take 1 capsule by mouth 2 times daily for 180 days. Take 30 minutes before breakfast and in the evening 20 mg Quantity: 180 capsule Refills: 1 pantoprazole 20 mg Tbec Commonly known as: PROTONIX Take 20 mg by mouth 2 times daily. 20 mg Refills: 0 polyethylene glycol 17 gram/dose Powd Commonly known as: MIRALAX Take 1 g by mouth as needed. 1 g Refills: 0 prazosin 2 mg Cap Commonly known as: MINIPRESS Take 6 mg by mouth nightly. 6 mg Refills: 0 PROAIR HFA 90 mcg/actuation Hfaa Inhale 2 puffs into the lungs every 4 hours as needed. Use with spacer Generic drug: albuterol 2 puff Refills: 0 promethazine 25 mg Tab Commonly known as: PHENERGAN Take 25 mg by mouth 3 times daily. 25 mg Refills: 0 ranitidine 150 mg Tab Commonly known as: ZANTAC Take 150 mg by mouth 2 times daily. 150 mg Refills: 0 sertraline 50 mg Tab Commonly known as: ZOLOFT 1 tablet daily. 1 tablet Refills: 0 simvastatin 40 mg Tab Commonly known as: ZOCOR Take 1 tablet by mouth nightly. 40 mg Quantity: 90 tablet Refills: 3 SPIRIVA WITH HANDIHALER 18 mcg Cpdv Inhale 18 mcg into the lungs daily. Generic drug: tiotropium 18 mcg Refills: 0 TAMSULOSIN ORAL Take by mouth daily. Refills: 0 tiZANidine 4 mg Tab Commonly known as: ZANAFLEX Take 1 tablet by mouth 3 times daily. 4 mg Quantity: 60 tablet Refills: 3 traZODone 100 mg Tab Commonly known as: DESYREL Take 150 mg by mouth nightly. 150 mg Refills: 0 Yisel Marroquin MD documented in this encounter Plan of Treatment Not on file documented as of this encounter Results * DXA Central-Spine, Hip, [...] BMD measurements and plots are available in [employer] under the imaging tab. Paper copies will be sent to providers without [employer] access. If you have received this report without the data sheet and do not have access to E-, please contact Radiology Fishing Vessel Captain at [phone] Tuesday thru Tuesday 8am-4pm. Thank you for letting us participate in the care of this patient. For questions regarding this report, please contact the number below. ? Narrative 02/20/2019 10:58 AM EDT EXAMINATION: DXA CENTRAL-SPINE, HIP, AND/OR WHOLE BODY (GENERIC) CLINICAL HISTORY: Hx bariatric surgery amd prison PPI use, rec by gen surg TECHNIQUE: [...] (GENERIC) CLINICAL HISTORY: Hx bariatric surgery amd prison PPI use, rec by gensurg TECHNIQUE: Scans [...] copies will be sent to providers without [employer] access.If you have received this report without the data sheet and do not haveaccess to [employer], please contact Radiology Fishing Vessel Captain at [phone] Tuesday thruFriday 8am-4pm. Thank you for letting us participate in the care of this patient. Forquestions regarding this report, please contact the number below. Yisel Marroquin MD IMG DEXA ORDERABLES documented in this encounter Visit Diagnoses Diagnosis Smokes cigarettes Tobacco use disorder Cervicalgia Essential hypertension Unspecified essential hypertension Gastroesophageal reflux disease, esophagitis presence not specified Class 2 obesity with body mass index (BMI) of 38.0 to 38.9 in adult, unspecified obesity type, unspecified whether serious comorbidity present Long-term use of high-risk medication Other osteoporosis without current pathological fracture Nicotine dependence, cigarettes, uncomplicated Tobacco abuse counseling Counseling on substance use and abuse Long-term use of high-risk medication Other osteoporosis without current pathological fracture documented in this encounter Care Teams Mill Feeder Relationship Specialty Start Date End Date Yisel Marroquin MD [address] [place] [address] PCP - General 11/13/18 03/05/19 documented as of this encounter
--- OUTSIDE RECORDS SUMMARY | 2024-02-22 00:54 | XMS_ITS | Encounter Summary ---
Author Organization [facility] [place] [address] Care Team Providers Care Mapping Pilot Name Role Phone Yisel Marroquin MD Primary Care Provider [phone] Encounter Details Date Type Department Care Team (Late st Contact Info) Description 09/19/2018 12:41 PM EST Anesthesia Event [place] [address] Francisco Javier Lord MD [facility] [place] [address] Anesthesia Record Procedure Summary Procedure Name Responsible Anesthesiologist Anesthesia Start Time Anesthesia Stop Time UPPER GASTROINTESTINAL ENDOSCOPY,WITH BIOPSY SINGLE OR MULTIPLE (WRVU 2.39) Francisco Javier Lord MD 09/19/18 1241 09/19/18 1304 Events Date Time Event Comment 09/19/2018 1145 1241 AN Verify 1241 Start 1241 An Start Data 1244 An Induction 1248 Break/Relief In FRANCISCO JAVIER Escobar MD 1248 Anesthesia Ready 1300 an stop data 1304 Recovery or ICU Handoff Liana ent care was transferred to the destination unit staff after review of the patient's medical history, current anesthetic/surgical status and plan, according to the Provider Handoff Checklist. 1304 Stop Meds Name Total IV Lidocaine 100 mg Propofol 40 mg Propofol INF 217.35 mg lactated Ringers infusion 300 mL * Agents Name O2 Air N2O O2 Auxiliary Flowmeter 1 * Blood No blood administrations on file. Lines, Drains, and Airways Type Details Placement Removal (RETIRED) Peripheral IV Line - Single Lumen 09/19/18; 1157; median cubital vein (antecubital fossa), right; [id number] catheter system; 20 gauge; FABIANA Catrwright ; distraction; 09/19/18; 1346 09/19/18 1157 by Luci Cartwright RN 09/19/18 1346 by Jeff Jay RN documented in this encounter Social History [...] OR Notes * Anesthesia Postprocedure Evaluation - Francisco Javier Lord MD - 09/19/2018 2:42 PM EST [facility] Department of Anesthesiology Post-procedure Note Patient: Jeannie Rico Procedure Summary Date: 09/19/18 Room / Location: [facility] 4 / [facility] Anesthesia Start: 1241 Anesthesia Stop: 1304 Procedure: UPPER GASTROINTESTINAL ENDOSCOPY,WITH BIOPSY SINGLE OR MULTIPLE (WRVU 2.49) (N/A ) Diagnosis: (dysphagia - CONSULT) Surgeon: Tyron Mercado MD Responsible Provider: Francisco Javier Lord MD Anesthesia Type: MAC ASA Status: 3 All Anesthesia Providers: Anesthesiologist: Francisco Javier Lord MD GROCERY WORKER: Jose F Mei CRNA Vitals Value Taken Time BP 129/117 09/19/2018 1:20 PM Temp Pulse Resp SpO2 95 % 09/19/2018 1:26 PM Pain Level Vitals shown include unvalidated device data. Patient Location: PACU/[facility] Level of Consciousness: Awake and Alert Pain Management: Satisfactory Analgesia PONV: None Cardiovascular Status: Hemodynamically Stable Respiratory Status: Stable Respiratory Status Postoperative Fluid Status: Intravascular EUvolemia Possible Anesthetic Complications: NONE apparent at time of evaluation Final Primary Anesthesia Type: MAC (The anesthetic type performed was the same as planned.) Comments: * Anesthesia Preprocedure Evaluation - Francisco Javier Lord MD - 09/19/2018 10:41 AM EST Images from the original note were not included. Pre-Anesthesia Evaluation for: Jeannie Rico a 58 y.o. female. Procedure(s): EGD, UPPER GI ENDOSCOPY Patient Active Problem List Diagnosis ??? Osteoporosis DEXA done at [facility] on 10/29/15: osteoporosis at the left hip T-3, and osteopenia of the spine T-1.9 ??? Atherosclerosis of soboba coronary artery of soboba heart without angina pectoris ??? Hypertension ??? Smokes cigarettes ??? Hypothyroidism ??? GERD (gastroesophageal reflux disease) ??? Schizophrenia ??? Anxiety ??? Depression ??? Post traumatic stress disorder (PTSD) ??? Hidradenitis suppurativa ??? Obesity, S/P remote gastric bypass in 1995, prior VBG ??? Chronic pain ??? Cervicalgia ??? Lumbago Past Medical History: Diagnosis Date ??? Depression ??? Diabetes mellitus ??? Hypertension ??? Thyroid disease Past Surgical History: Procedure Laterality Date ??? ABDOMEN SURGERY ??? CREATED BY INTERFACE a carotid bypass Procedure Date: Unknown ??? CREATED BY INTERFACE cholecystectomy Procedure Date: Unknown ??? CREATED BY INTERFACE Entered not Verified Procedure Date: 07/08/2010 ??? CREATED BY INTERFACE hysterectomy Procedure Date: Unknown ??? CREATED BY INTERFACE tonsillectomy Procedure Date: Unknown ??? HYSTERECTOMY ??? PRO UPPER GI ENDOSCOPY, BIOPSY N/A 12/03/2015 EGD WITH BIOPSY performed by Ken Sanders MD at [facility] END[facility]COPY ??? UPPER GI ENDOSCOPY, EXAM 12/04/2010 UPPER GI ENDOSCOPY performed by DEE WRIGHT at [facility] Social History Tobacco Use ??? Smoking status: Current Every Day Smoker Packs/day: 1.00 Years: 45.00 Pack years: 45.00 Types: Cigarettes ??? Smokeless tobacco: Never Used Substance Use Topics ??? Alcohol use: No Social History Substance and Sexual Activity Drug Use No Allergies Allergen Reactions ??? Morphine Shortness Of Breath ??? Sumatriptan Hives ??? Oxycodone Other (See Comments) drunk feeling, dizzy ??? Oxycodone-Acetaminophen Other (See Comments) dizziness, feels drunk ??? Chantix [Varenicline] psychotic ??? Marijuana Other (See Comments) Becomes psychotic Medications: MAR and/or home medications have been reviewed. Physical Exam: There were no vitals filed for this visit. There is no height or weight on file to calculate BMI. Airway Assessment: Mallampati: I TM distance: >3 FB Neck ROM: full Cardiovascular Assessment: Rhythm: regular Rate: normal Pulmonary Assessment: breath sounds clear to auscultation Dental Assessment: Misc Assessment: Patient is wearing No contact(s). Anesthesia Plan: ASA 3 MAC, with a(n) intravenous induction Region - Other Informed Consent: Anesthetic plan and risks discussed with patient. PAT Staff Note Attending NOTE Brief HPI: 58 y.o. with dysphagia to endo suite for EGD Diagnosis ??? Cervicalgia ??? Chronic pain ??? Lumbago ??? Atherosclerosis of soboba coronary artery of soboba heart without angina pectoris ??? Hypertension ??? Smokes cigarettes ??? Hypothyroidism ??? GERD (gastroesophageal reflux disease) ??? Schizophrenia ??? Anxiety ??? Depression ??? Post traumatic stress disorder (PTSD) ??? Hidradenitis suppurativa ??? Obesity, S/P remote gastric bypass in 1995, prior VBG ??? Osteoporosis Cardiac Symptoms: denies EKG: SB @ 48 ECHO: none recent LABS: Lab Results Component Value Date HGB 14.0 09/11/2018 PLATELET 161 09/11/2018 INR 1.0 04/16/2013 NA 141 09/11/2018 K 4.1 09/11/2018 CREATININE 0.83 09/11/2018 Type and Screen: No results found for: ABORH Past anesthetic problems: denies Previous airway notes (on eDH): previous EGD under propofol mac NPO status: Reviewed and appropriate Anesthetic Plan: MAC Monitoring: Standard ASA monitors documented in this encounter Plan of Treatment Not on file documented as of this encounter Visit Diagnoses Not on filedocumented in this encounter Administered Medications Inactive Administered Medications - up to 3 most recent administrations Medication Order MAR Action Action Date Dose Rate Site lidocaine (PF) (XYLOCAINE) 100 mg/5 mL (2 %) injection PRN, Starting on Tue09/19/18 at 1244, Until Tue09/19/18 at 1304, Anesthesia Intra-op, Routine Given 09/19/2018 12:44 PM EST 100 mg propofol (DIPRIVAN) 10 mg/mL bolus injection (Anesthesia) PRN, Starting on Tue09/19/18 at 1244, Until Tue09/19/18 at 1304, Anesthesia Intra-op Given 09/19/2018 12:44 PM EST 40 mg propofol (DIPRIVAN) infusion CONTINUOUS PRN, Starting on Tue09/19/18 at 1244, Until Tue09/19/18 at 1304, Anesthesia Intra-op, Routine New Bag 09/19/2018 12:44 PM EST 150 mcg/kg/min 86.9 mL/hr documented in this encounter Care Teams Mapping Pilot Relationship Specialty Start Date End [place] [address] PCP - General General Internal Medicine 06/28/1810/24 documented as of this encounter
--- OUTSIDE RECORDS SUMMARY | 2024-02-22 00:54 | XMS_ITS | Encounter Summary ---
Author Organization [facility] [place] [address] Care Team Providers Care Percussion Instrument Tuner Name Role Phone Yisel Marroquin MD Primary Care Provider Encounter Details Date Type Department Care Team (Late st Contact Info) Description 01/05/2019 Orders Only [place] [address] Sidra Del Toro, INSTRUMENT SHOP SUPERVISOR [facility] DR [place] [address] Social History Tobacco Use Types Packs/Day Years [...] on filedocumented in this encounter Care Teams Percussion Instrument Tuner Relationship Specialty Start Date End Date Yisel Marroquin MD [address] [place] [address] PCP - General 11/13/18 03/05/19 documented as of this encounter
--- OUTSIDE RECORDS SUMMARY | 2024-02-22 00:54 | XMS_ITS | Encounter Summary ---
[place] [address] Care Team Providers Care Instrument Mechanic Weapons System Name Role Phone Yisel Marroquin MD Primary Care Provider [phone] Encounter Details Date Type Department Care Team (Late st Contact Info) Description 01/08/2019 Telephone [facility] [address] [place] [id number] Yisel Marroquin MD [address] [place] [address] Social History Tobacco Use Types Packs/Day Years [...] Telephone Encounter - Shannon Cruz RN - 01/10/2019 9:04 AM EDT Pharmacy notified about 20mg dose. * Telephone Encounter - Yisel Marroquin MD - 01/10/2019 8:50 AM EDT Ok, then yes, let's keep the 20mg dose. -EM * Telephone Encounter - Shannon Cruz RN - 01/10/2019 8:25 AM EDT Jeannie doesn't take BP at home. If office, since 06/2017, all Bps have been <130/85, ecept on 10/19/18 138/78 and 06/27/2018 134/68. PCP notified. * Telephone Encounter - Yisel Marroquin MD - 01/08/2019 1:23 PM EDT If her BP has been <130/85 consistent at home we should keep 20mg doing, if not, increase to 40mg. -EM * Telephone Encounter - Shannon Cruz RN - 01/08/2019 1:12 PM EDT Jeannie states that she will continue plavix. Sidra Skaggs ordered omeprazole, but Jeannie wants rx'sin the future to be under PCP. PCP okayed this (see note from 01/05/19) [place] pharmacy called asking question about lisinopril dose. PCP notified. documented in this encounter Plan of Treatment Not on file documented as of this encounter Visit Diagnoses Not on filedocumented in this encounter Care Teams Instrument Mechanic Weapons System Relationship Specialty Start Date End Date Yisel Marroquin MD [email or web address] [address] PCP - General 11/13/18 03/05/19 documented as of this encounter
--- OUTSIDE RECORDS SUMMARY | 2024-02-22 00:54 | XMS_ITS | Encounter Summary ---
Author Organization [facility] Address [facility] [place] [address] Care Team Providers Care Bid Manager Name Role Phone Yisel Marroquin MD Primary Care Provider Reason for Visit * Reason Comments Medication Refill Encounter Details Date Type Department Care Team (Late st Contact Info) Description 02/26/2019 Refill Cardiology at [address] [address] Freddy Mejias MD [facility] [place] [address] Medication Refill Social History Tobacco Use Types Packs/Day [...] on filedocumented in this encounter Care Teams Bid Manager Relationship Specialty Start Date End Date [place] [address] PCP - General 11/13/18 03/05/19 documented as of this encounter
--- OUTSIDE RECORDS SUMMARY | 2024-02-22 00:54 | XMS_ITS | Encounter Summary ---
Author Organization [facility] [place] [address] Care Team Providers Care Fan Engine Engineer Name Role Phone Yisel Marroquin MD Primary Care Provider [phone] Reason for Visit * Reason Onset Date Comments Pre Procedure Call 09/12/2018 MED STOP- urg ent surgery scheduled Encounter Details Date Type Department Care Team (Late st Contact Info) Description 09/12/2018 Telephone Cardiology at [address] [address] Freddy Mejias MD [facility] [place] [address] Pre Procedure Call (MED STOP- urgent surgery scheduled) Social History Tobacco Use Types Packs/Day Years [...] encounter Miscellaneous Notes * Telephone Encounter - Kenna Lopez Arjun - 09/12/2018 4:21 PM EST Jeannie Garcia is having emergent surgery on Tuesday and needs your permission to stop the plavix for 5 days. Please advise if ok, and if she needs bridging. [phone] Thank you documented in this encounter Plan of Treatment Not on file documented as of this encounter Visit Diagnoses Not on filedocumented in this encounter Care Teams Fan Engine Engineer Relationship Specialty Start Date [place] [address] PCP - General General Internal Medicine 06/28/1810/24 documented as of this encounter
--- OUTSIDE RECORDS SUMMARY | 2024-02-22 00:54 | XMS_ITS | Encounter Summary ---
Author Organization [facility] [place] [address] Care Team Providers Care Field Artillery Cannoneer Name Role Phone Yisel Ventura MD Primary Care Provider [phone] Encounter Details Date Type Department Care Team (Late st Contact Info) Description 09/19/2018 12:45 PM EST - 09/19/2018 1:15 PM EST [place] [id number] Tyron Mercado MD [facility] [place] [address] UPPER GASTROINTESTINAL ENDOSCOPY,WITH BIOPSY SINGLE OR MULTIPLE (WRVU 2.39) Social History Tobacco Use Types Packs/Day Years [...] Sign Reading Time Taken Comments Blood Pressure 125/103 09/19/2018 1:15 PM EST Pulse 55 09/19/2018 11:34 AM EST Temperature 36.9 ??C (98.5 ??F) 09/19/2018 11:[address] Respiratory Rate - - Oxygen Saturation 82% 09/19/2018 1:15 PM EST Inhaled Oxygen Concentration - - Weight 96.6 kg (213 lb) 09/19/2018 11:34 AM EST Height - - Body Mass Index 36.56 09/11/2018 12:52 PM EST documented in this encounter Discharge Instructions * Discharge Instructions* Jeff Jay RN - 09/19/2018 1:11 PM EST Please call [phone] before 8pm Mon-Fri with problems, questions or concerns. If you call after 8pm or on weekends, call the Hospital at [phone] and ask to speak to the Logging Assistant senior talent acquisition specialist and the brine well operator will contact that person for you. * Attachments The following attachments cannot be sent through Care Everywhere. * EGD (Upper Endoscopy): Post-op (Syrian) documented in this encounter Medications at Time [...] G89.29 ??? Lumbago M54.5 ??? Atherosclerosis of diomede coronary artery of [place]om[place] heart without angina pectoris I25.10 ??? Hypertension [...] (09/19/2018 12:59 PM EST) FINAL DIAGNOSIS (AP) [id number] ? Location: 4T; EA07; A The signing [...] Vigil MD Verified: ??09/22/2018 ?Pathologist Performed at: ??-[facility] Dept. of Pathology, [place], [place] CLINICAL INFORMATION Specimen Submitted: A - [...] cassette labeled C1. ??ejr 09/22/2018 3:24 PM EST [facility] GI Biopsy 09/19/2018 12:5 9 PM EST 09/19/2018 12:59 PM EST GI Biopsy 09/19/2018 12:5 9 PM EST 09/19/2018 12:59 PM EST GI Biopsy 09/19/2018 12:5 9 PM EST 09/19/2018 12:59 PM EST Tyron Mercado MD PATHOLOGY/CYTOLOGY ORDERABLES Performing Organization Address City/[facility]/ZIP Co de Phone Number [facility] [place] [address] * Specimen to Pathology (09/19/2018 12:59 PM EST) AP Specimen 09/19/2018 12:5 9 PM EST 09/19/2018 12:59 PM EST Narrative [facility] - 09/19/2018 12:59 PM EST Specimen requisition ordered. ??Separate Pathology report to follow Tyron Mercado MD PATHOLOGY/CYTOLOGY ORDERABLES Performing Organization Address City/[facility]/ZIP Co de Phone Number [facility] [place] [address] * Specimen to Pathology (09/19/2018 12:59 PM EST) AP Specimen 09/19/2018 12:5 9 PM EST 09/19/2018 12:59 PM EST Narrative [facility] - 09/19/2018 12:59 PM EST Specimen requisition ordered. ??Separate Pathology report to follow Tyron Mercado MD PATHOLOGY/CYTOLOGY ORDERABLES Performing Organization Address City/[facility]/ZIP Co de Phone Number [facility] [place] [address] * Specimen to Pathology (09/19/2018 12:59 PM EST) AP Specimen 09/19/2018 12:5 9 PM EST 09/19/2018 12:59 PM EST Narrative [facility] - 09/19/2018 12:59 PM EST Specimen requisition ordered. ??Separate Pathology report to follow Tyron Mercado MD PATHOLOGY/CYTOLOGY ORDERABLES Performing Organization Address [facility]/ZIP Co de Phone Number [facility] [place] [address] * UPPER GI ENDOSCOPY (09/19/2018 12:17 PM EST) Pathologist [facility] UPPER GI ENDOSCOPY [facility] Endoscopy Procedure Date: 09/19/2018 12:17 PM ? Patient Name: Jeannie Rico ? N: [id number] ? Date of : 1960 ? Age: 58 ? Order #: [id number] ? Instrument Name: [id number] ? Procedure: ? Upper GI endoscopy Indications: ? Dysphagia Providers: ? Tyron Mercado MD, Andrés Teixeira, ? Jeannie Alcazar RN, Anaid Ardon, ? Director Medical Science Referring MD: ?Yisel Ventura MD Medicines: ? [...] EST Yisel Ventura MD GENERAL SURGICAL ORD [facility] documented in this encounter Visit [...] Procedure) 1145 (New Bag - Prov ider: Luic Cartwright RN)1304 (Anesthesia Volume Adjustment - Provider: Francisco Javier Lord MD) documented in this encounter Care Teams Field Artillery Cannoneer Relationship Specialty Start Date End Date Yisel Ventura MD [address] [address] PCP - General General Internal Medicine 06/28/1810/24 documented as of this encounter
--- OUTSIDE RECORDS SUMMARY | 2024-02-22 00:54 | XMS_ITS | Encounter Summary ---
[place] [address] Care Team Providers Care Packaging Tech Name Role Phone Yisel Marroquin MD Primary Care Provider Reason for Referral * Consultation (Urgent) - Closed Specialty Diagnoses / Procedures Referred By Contdavide t Referred To Contact Gastroenterology Carli Tinsley MD [facility] [place] [address] [facility] End[address] [place] [address] Referral ID Status Reason Start Date Expiration Date V isits Requested Visits Authorized [id number] Closed Consult, Test & Treat 09/11/2018 09/11/2019 1 1 Reason for Visit * Reason Comments Hoarseness Encounter Details Date Type Department Care Team (Late st Contact Info) Description 09/11/2018 3:33 PM EST - 09/11/2018 6:25 PM EST [place] [address] Ken Guerrero MD [address] [place] [id number] Dysphagia, unspecified type Discharge Disposition: Home Social History Tobacco [...] Sign Reading Time Taken Comments Blood Pressure 115/68 09/11/2018 2:30 PM EST Pulse 71 09/11/2018 2:30 PM EST Temperature 36.9 ??C (98.4 ??F) 09/11/2018 2:30 PM ES T Respiratory Rate 14 09/11/2018 2:30 PM EST Oxygen Saturation 96% 09/11/2018 2:30 PM EST Inhaled Oxygen Concentration - - Weight 98.9 kg (218 lb) 09/11/2018 12:52 PM EST Height 162.6 cm (5' 4) 09/11/2018 12:52 PM EST Body Mass Index 37.42 09/11/2018 12:52 PM EST documented in this encounter Discharge Instructions * Discharge Instructions* Carli Tinsley MD - 09/11/2018 6:00 PM EST Your labwork is normal and you have no evidence of dehydration. Continue to drink liquids as you have been doing a great job of staying hydrated. GI clinic will contact you for an appointment, but you can call them tomorrow to schedule an appointment. They will evaluate you in clinic for a possiblescope. * Attachments The following attachments cannot be sent through Care Everywhere. * Dysphagia Diet: General Info (Mohawk) documented in this encounter Medications at Time [...] as of this encounter ED Notes * Tianna Mcghee RN - 09/11/2018 6:25 PM EST Pt refusing d/c vitals, in a cabrera to catch her ride. * Carli Tinsley MD - 09/11/2018 3:47 PM EST ED Resident Note Jeannie Rico is a 58 y.o. female who presents to the ED with: Chief Complaint Patient presents with ??? Hoarseness HPI Jeannie Rico is a 58 y.o. female smoker with hx of GERD, gastric bypass, PTSD/anxiety who presents to the Emergency Department with difficulty swallowing foods over the past two years. She had an EGD in 2016 that was unremarkable but has continued to have difficulty swallowing foods. She came tot ED on 09/08 with fever/cough and was treated for aspiration PNA. Admission was advised but she refused, stating it would worsen her anxiety. She has since had worsening difficulty swallowing foods- she is unable to eat because it regurgitates immediately. She has also not been able to drink muchfluid either, and her pills (including her doxycycline) got stuck this morning and came back up. She states her fever/cough have completely resolved. She is fatigued and feels unwell. She has had worsening dysphagia to solids greater than liquids over the past two years. Review of Systems: Review of Systems Constitutional: Positive for fatigue. Negative for diaphoresis and fever. HENT: Positive for trouble swallowing and voice change. Eyes: Negative for visual disturbance. Respiratory: Negative for chest tightness and shortness of breath. Cardiovascular: Negative for chest pain. Gastrointestinal: Negative for abdominal pain, nausea and vomiting. Genitourinary: Negative for dysuria. Musculoskeletal: Negative for neck pain. Skin: Negative for pallor. Neurological: Negative for syncope and light-headedness. Psychiatric/Behavioral: Negative for confusion. Physical Exam: Patient Vitals for the past 24 hrs: BP Temp Temp src Pulse Resp SpO2 Height Weight 09/11/18 1252 143/65 37 ??C (98.6 ??F) Oral 58 18 95 % 162.6 cm (5' 4) 98.9 kg (218 lb) Physical Exam Constitutional: She is oriented to person, place, and time. She appears well- developed and well-nourished. No distress. HENT: Head: Normocephalic and atraumatic. Mouth/Throat: Mucous membranes are pale and dry. Eyes: Conjunctivae are normal. Neck: Neck supple. Cardiovascular: Normal rate, regular rhythm, normal heart sounds and intact distal pulses. Pulmonary/Chest: Effort normal and breath sounds normal. No respiratory distress. She has no wheezes. She has no rales. Abdominal: Soft. Bowel sounds are normal. She exhibits no distension. There is no tenderness. Thereis no rebound and no guarding. Musculoskeletal: She exhibits no edema. Neurological: She is alert and oriented to person, place, and time. No cranial nerve deficit. Skin: Skin is warm and dry. She is not diaphoretic. Psychiatric: She has a normal mood and affect. Nursing note and vitals reviewed. ED Course: Patient was evaluated and discussed with Dr. Cesar Purvis, allergies, and PMH reviewed. Nursing notes and VS reviewed. Recent Results (from the past 24 hour(s)) Blue Tube HOLD Result Value Ref Range Blue Hold Sample in lab. Gold Tube HOLD Result Value Ref Range Gold Hold Sample in lab. Meds and fluid administered: Medications lactated Ringers 1,000 mL IV bolus ( Intravenous New Bag 09/11/18 7875) Relevant imaging findings: No orders to display ED Course as of Sep 11 1813 Mon Sep 11, [id number] Same as 09/08, and last hemogram in 2016 Hemoglobin: 14.0 Assessment and Plan: MEDICAL DECISION MAKIN y.o. female with hoarseness and dysphagia with inability to eat or swallow solids acutely worse over the past several days. She is able to drink fluids, but her pills got stuck this morning thus prompting her ED visit. Her labs are reassuring that she is staying adequately hydrated. Hematocrit appears c/w prior labs, normal creatinine and albumin. I discussed admissionwith medicine but she appears well and has no lab abnormalities warranting admission for her dysphagia. No continued cough/fevers, no concern for clinically significant aspiration PNA today. We considered a diagnosis of myasthenia gravis or alternate etiology of her dysphagia, and felt that GI would best assist her in determining the cause initially. Discussed her case with the GI fellow concrete sculptor,who advised urgent referral for an outpatient clinic visit likely in the next two days. Pt was reassured that she is well hydrated and brought her glass of water which she drink from a straw without difficulty. She will follow-up with GI clinic outpatient. ASSESSMENT: Dysphagia PLAN: - dispo: discharge home - follow-up: GI outpatient, referral placed Carli Tinsley MD EM PGY-3 09/11/2018 Please excuse any errors. This note was dictated with [employer] software. Carli Tinsley MD Resident 09/11/181818 Associated attestation - Ken Guerrero MD - 09/14/2018 2:31 AM EST ED ATTENDING ATTESTATION NOTE The patient was seen in conjunction with Dr. Tinsley, the resident physician. I have independently performed the ramírez portions of the history and physical exam. I have reviewed the nursing notes, vitalsigns, and all diagnostic studies personally including labs, imaging studies and EKGs. I have discussed the details of the case with the resident and agree with the assessment and plan as described in the resident note above unless noted otherwise below. Brief Summary: 58-year-old female with difficulty swallowing. This is apparently been a long-term and intermittent problem that she has had several times. She was able to drink fluids here without difficulty. She has no other neurologic signs or symptoms to suggest more systemic disease or stroke. She has no signs of dehydration or other abnormalities on blood work. Given her ability to tolerate fluids I think a follow-up with gastroenterology with urgent scoping seems reasonable and she was comfortable with this plan. Final Assessment: Difficulty swallowing documented in this encounter Miscellaneous Notes * ED Triage - Remy Melendez, RN - 09/11/2018 12:50 PM EST C/o difficulty swallowing since Tuesday, seen here Tuesday for same complaint. Pt able to manage ownsecretions, denies SOB, but says she gags when trying to swallow food. Ambulatory, alert, oriented.Speaking in complete sentences. documented in this encounter Plan of Treatment Scheduled Referrals Name Type Priority Associated Diagnoses Order Schedule Referral to Gastroenterology Outpatient Referral Routine Ordered: 09/11/2018 documented as of this encounter Procedures Procedure Name Priority Date/Time Associated Diagnosis Comments HEMOGRAM STAT 09/11/2018 4:45 PM EST DIFFERENTIAL, AUTOMATED STAT 09/11/2018 4:45 PM EST GOLD TUBE HOLD STAT 09/11/2018 4:45 PM EST BLUE TUBE HOLD STAT 09/11/2018 4:45 PM EST CBC (WITH DIFF) STAT 09/11/2018 4:45 PM EST PHOSPHORUS STAT 09/11/2018 4:45 PM EST MAGNESIUM STAT 09/11/2018 4:45 PM EST COMPREHENSIVE METABOLIC PANEL (NON-FASTING) STAT 09/11/2018 4:45 PM EST documented in this encounter Results * Phosphorus (09/11/2018 4:45 PM EST) Phosphorus 3.4 2.5 - 4.5 mg/dL [facility] Blood specimen (specimen) Venous Draw / Unknown 09/11/2018 4:45 PM EST 09/11/2018 5:06 PM EST Narrative Resulting Agency Comment Spec In Lab Carli Tinsley MD CHEMISTRY ORDERABLES Performing Organization Address [facility] Co de Phone Number [facility] [place] [address] * Magnesium (09/11/2018 4:45 PM EST) Magnesium 0.80 0.69 - 1.07 mmol/L [facility] Blood specimen (specimen) Venous Draw / Unknown 09/11/2018 4:45 PM EST 09/11/2018 5:06 PM EST Narrative Resulting Agency Comment Spec In Lab Carli Tinsley MD CHEMISTRY ORDERABLES Performing Organization Address [facility] Co de Phone Number [facility] [place] [address] * Gold Tube HOLD (09/11/2018 4:45 PM EST) Gold Hold Sample in lab. [facility] Blood specimen (specimen) Venous Draw / Unknown 09/11/2018 4:45 PM EST 09/11/2018 5:07 PM EST Carli Tinsley MD CHEMISTRY ORDERABLES Performing Organization Address City/[facility] Co de Phone Number [facility] [place] [address] * Blue Tube HOLD (09/11/2018 4:45 PM EST) Blue Hold Sample in lab. [facility] Blood specimen (specimen) Venous Draw / Unknown 09/11/2018 4:45 PM EST 09/11/2018 5:07 PM EST Carli Tinsley MD HEMATOLOGY ORDERABLE S Performing Organization Address City/[facility]/ZIP Co de Phone Number [facility] [place] [address] * Differential, Automated (09/11/2018 4:45 PM EST) Neutrophils % 70.5 % [facility] Neutr Abs (ANC) 5.40 1.70 - 6.10 x10(3)/[facility] Lymphocytes % 21.7 % [facility] Lymphocytes Abs 1.7 0.9 - 3.2 x10(3)/[facility] Monocytes % 6.7 % [facility] Monocyte Abs 0.5 0.3 - 0.9 x10(3)/[facility] Eosinophils % 0.3 % [facility] Eosinophils Abs 0.0 0.0 - 0.4 x10(3)/[facility] Basophils % 0.7 % [facility] Basophils Abs 0.0 0.0 - 0.1 x10(3)/[facility] Immature Gran % 0.10 % [facility] Comment: Immature granulocytes(IG's)percentage and absolute count will include metamyelocytes, myelocytes, and promyelocytes. Blood smears from CBCs yielding IG's will be scanned manually for concordance. If this scan disagrees with the automated IG or if promyelocytes are noted, a manual differential will be performed. Fartun Gran Abs 0.01 0.00 - 0.04 x10(3)/[facility] Blood specimen (specimen) 09/11/2018 4:45 PM EST 09/11/2018 5:06 PM EST Narrative Resulting Agency Comment Spec In Lab Carli Tinsley MD HEMATOLOGY ORDERABLE S [facility] [place] [address] * (ABNORMAL) Hemogram (09/11/2018 4:45 PM EST) WBC 7.6 4.0 - 9.5 x10(3)/[facility] RBC 4.44 4.00 - 5.21 x10(6)/[facility] Hemoglobin 14.0 11.7 - 15.5 gm/dL [facility] Hematocrit 42.7 35.7 - 45.8 % [facility] MCV 96.2(H) 82.6 - 94.4 [facility] MCH 31.5 27.1 - 32.0 pg [facility] MCHC 32.8 31.7 - 35.0 gm/dL [facility] Platelets 161 145 - 357 x10(3)/[facility] RDWSD 48.2(H) 37.0 - 46.0 [facility] RDWCV 13.5 11.5 - 14.1 % [facility] MPV 10.2 7.6 - 12.9 [facility] nRBC % Auto 0.0 % [facility] nRBC Abs Auto 0.000 0.000 - 0.000 x10(3)/[facility] Blood specimen (specimen) 09/11/2018 4:45 PM EST 09/11/2018 5:06 PM EST Narrative Resulting Agency Comment Spec In Lab Carli Tinsley MD HEMATOLOGY ORDERABLE S Performing Organization Address City/State/[facility] Co de Phone Number [facility] [place] [address] * (ABNORMAL) Comprehensive metabolic panel (non-fasting) (09/11/2018 4:45 PM EST) Glucose Lvl 81 65 - 199 mg/dL [facility] Comment:Diabetes: >=200 mg/d L plus symptoms BUN 15 8 - 18 mg/dL [facility] Creatinine 0.83 0.70 - 1.20 mg/dL [facility] Sodium 141 135 - 145 mmol/L [facility] Potassium 4.1 3.5 - 5.0 mmol/L [facility] Comment: Please note: ??Patients with WBC >100,000 may have falsely elevated Potassium levels. ??For accurate Potassium quantification in these patients send serum separator tube (gold top) for subsequent determinations. ??Contact the Clinical Chemistry Laboratory if there are any questions. Chloride 101 98 - 107 mmol/L [facility] CO2 26 22 - 31 mmol/L [facility] Anion Gap 14 5 - 15 mmol/L [facility] Calcium 10.1 8.5 - 10.5 mg/dL [facility] Total Protein 7.4 6.1 - 8.0 gm/dL [facility] Albumin 4.2 3.2 - 5.2 gm/dL [facility] AST 13 0 - 30 unit/L [facility] ALT 7 0 - 30 unit/L [facility] Alk Phos 115(H) 40 - 104 unit/L [facility] Total Bilirubin 0.2 0.2 - 1.3 mg/dL [facility] Estimated GFR 78 >=60 mL/min/1. 73 m?? [facility] Comment: The eGFR was calculated using the CKD-EPI equation. As with all creatinine based estimates of kidney function, eGFR values calculated with the CKD-EPI equation are not accurate in patients with acute kidney failure, extremes of body mass or the acutely ill. http://[employer]/[facility] [place] eGFR 90 >=60 mL/min/1. 73 m?? [facility] Comment: The eGFR was calculated using the CKD-EPI equation. As with all creatinine based estimates of kidney function, eGFR values calculated with the CKD-EPI equation are not accurate in patients with acute kidney failure, extremes of body mass or the acutely ill. http://[employer]/[facility] [place] Blood specimen (specimen) 09/11/2018 4:45 PM EST 09/11/2018 5:06 PM EST Narrative Resulting Agency Comment Spec In Lab Ken Guerrero MD CHEMISTRY ORDERABLES [facility] [place] [address] documented in this encounter Visit Diagnoses Diagnosis Dysphagia, unspecified type documented in this encounter Administered Medications Inactive Administered Medications - up to 3 most recent administrations Medication Order MAR Action Action Date Dose Rate Site lactated Ringers 1,000 mL IV bolus at 2,000 mL/hr, Intravenous, ONCE, 1 dose, On Tue09/11/18 at 1604 New Bag 09/11/2018 4:45 PM EST 2000 mL/hr documented in this encounter Active and Recently Administered Medications Times are shown in EST. Scheduled Medication Order 09/09/2018 09/10/2018 09/11/2018 lactated Ringers 1,000 mL IV bolus (COMPLETED) at 2,000 mL/hr, Intravenous, ONCE, 1 dose, On Tue09/11/18 at 1604 1645 (New Bag - Prov ider: Tianna Mcghee RN)1715 (Stopped - Provider: Tianna Mcghee RN) documented in this encounter Care Teams Packaging Tech Relationship Specialty Start Date End Date Yisel [place] [address] PCP - General General Internal Medicine 06/28/1810/24 documented as of this encounter
--- OUTSIDE RECORDS SUMMARY | 2024-02-22 00:54 | XMS_ITS | Encounter Summary ---
Author Organization [facility] [place] [address] Care Team Providers Care Log Chain Feeder Name Role Phone Yisel Marroquin MD Primary Care Provider [phone] Encounter Details Date Type Department Care Team (Late st Contact Info) Description 01/05/2019 Notes Only [place] [address] Sidra Del Toro, DISTRIBUTION SPECIALIST [facility] [place] [address] Social History Tobacco Use Types Packs/Day Years [...] Notes * Sidra Del Toro - 01/05/2019 2:32 PM EDT Bariatric Surgery Program I spoke with Jessica JUNG in Cardiology, who states their team is comfortable with use of omeprazole in patients on clopidogrel. I will change the omeprazole to 20 mg BID which was in place at her last visit with Dr. Mejias. She will be contacted for cardiology follow up since her last visit was 2 years ago documented in this encounter Plan of Treatment Not on file documented as of this encounter Visit Diagnoses Not on filedocumented in this encounter Care Teams Log Chain Feeder Relationship Specialty Start Date End Date Yisel Marroquin MD [address] [id number] PCP - General 11/13/18 03/05/19 documented as of this encounter
--- OUTSIDE RECORDS SUMMARY | 2024-02-22 00:54 | XMS_ITS | Encounter Summary ---
[place] [address] Care Team Providers Care Science Teacher Name Role Phone Yisel Marroquin MD Primary Care Provider [phone] Encounter Details Date Type Department Care Team (Late st Contact Info) Description 05/04/2019 Telephone Primary Care at [facility] [address] [place] [id number] Fabby Freedman APRN [address] [facility] [place] [address] Social History Tobacco Use Types Packs/Day Years [...] encounter Miscellaneous Notes * Telephone Encounter - Fabby Freedman APRN - 05/04/2019 8:09 AM EDT After hours on-call note: Date: 05/04/19 Time: 8:17 AM Caller: self Phone number: Primary care provider: Yisel Marroquin MD Reason for call (on pager): Extreme flu symptoms, would like to discuss. Details of call: Coughing, sneezing, hard to breathe, especially hard to breathe when she lies down. Has been going on for several days, worse as of last night. Coughing up thick yellow mucous. Propping herself up on pillows makes it somewhat better. No hemoptysis. No syncope. Assessment: Flu vs. COPD exacerbation vs. HF. Plan: Advised to call scheduling line at 8:30am for same-day appointment. EM has one at 2pm today, or SG has wide availability today. Advised self-care until then, and ED if breathing becomes severely compromised while upright. documented in this encounter Plan of Treatment Not on file documented as of this encounter Visit Diagnoses Not on filedocumented in this encounter Care Teams Science Teacher Relationship Specialty Start Date End Date Yisel Marroquin MD [address] [place] [address] PCP - General General Internal Medicine 03/06/1911/22 documented as of this encounter
--- OUTSIDE RECORDS SUMMARY | 2024-02-22 00:54 | XMS_ITS | Encounter Summary ---
Author Organization [facility] [place] [address] Care Team Providers Care Web Developer Programmer Name Role Phone Yisel Marroquin MD Primary Care Provider Reason for Visit * Reason Onset Date Comments Medication Refill 01/29/2019 Encounter Details Date Type Department Care Team (Late st Contact Info) Description 01/29/2019 Refill Primary Care at [facility] [address] [place] [phone] Yisel Marroquin MD [address] [place] [address] Social History Tobacco Use Types Packs/Day Years [...] Telephone Encounter - Brunilda Cabrales LPN - 01/29/2019 3:00 PM EDT Last Prescription Fill Date: 10/19/2018 Number Dispensed and Refills: #60 with 3 Refills Last Related Office Visit: 10/19/2018 Upcoming Appointment: 02/07/2019 No flowsheet data found. [...] filedocumented in this encounter Care Teams Web Developer Programmer Relationship Specialty Start Date End Date Yisel Marroquin MD [address] [place] [address] PCP - General 11/13/18 03/05/19 documented as of this encounter
--- OUTSIDE RECORDS SUMMARY | 2024-02-22 00:54 | XMS_ITS | Encounter Summary ---
[place] [address] Care Team Providers Care Salon Supervisor Name Role Phone Yisel Marroquin MD Primary Care Provider [phone] Encounter Details Date Type Department Care Team (Late st Contact Info) Description 01/30/2019 Telephone Primary Care at [facility] [address] [place] [phone] Ananth Wilson MD [address] [facility] [place] [address] Social History Tobacco Use Types Packs/Day Years [...] Telephone Encounter - Alva Castellanos LPN - 01/30/2019 11:05 AM EDT Pharmacy informed * Telephone Encounter - Ananth Wilson MD - 01/30/2019 9:43 AM EDT Please clarify to pharmacist that it is to be Q 6-8 hrs as needed. * Telephone Encounter - Alva Castellanos LPN - 01/30/2019 8:05 AM EDT [place] from [facility] is calling to ask if you wanted the Tizanidine as scheduled? Patient was taking this medication every 6-8 hours as needed. He is asking if you want it to be scheduled cold they get 28 days supply? documented in this encounter Plan of Treatment Not on file documented as of this encounter Visit Diagnoses Not on filedocumented in this encounter Care Teams Salon Supervisor Relationship Specialty Start Date End Date Yisel Marroquin MD [address] [id number] PCP - General 11/13/18 03/05/19 documented as of this encounter
--- OUTSIDE RECORDS SUMMARY | 2024-02-22 00:54 | XMS_ITS | Encounter Summary ---
[place] [address] Care Team Providers Care Corn Picker Name Role Phone Yisel Marroquin MD Primary Care Provider [phone] Reason for Visit * Reason Comments Follow-up Annual visit S/P RNY gastric bypass Encounter Details Date Type Department Care Team (Late st Contact Info) Description 11/15/2018 9:00 AM EDT Office [place] [address] Sidra Del Toro, VIDEO CLERK [facility] [place] [address] Tamar Guerra, RD [facility] [place] [address] Disorder of iron metabolism; Status post bariatric surgery; Intestinal malabsorption, unspecified type; Gastroesophageal reflux disease, esophagitis presence not specified; Vitamin D deficiency; History of diabetes mellitus; Constipation, unspecified constipation type Social History Tobacco Use Types Packs/Day [...] Sign Reading Time Taken Comments Blood Pressure 139/83 11/15/2018 9:01 AM EDT Pulse 53 11/15/2018 9:01 AM EDT Temperature 36.7 ??C (98.1 ??F) 11/15/2018 9:01 AM ED T Respiratory Rate 14 11/15/2018 9:01 AM EDT Oxygen Saturation 97% 11/15/2018 9:01 AM EDT Inhaled Oxygen Concentration - - Weight 100.7 kg (221 lb 14.4 oz) 11/15/2018 9:01 AM EDT Height 162.6 cm (5' 4) 11/15/2018 9:01 AM EDT Body Mass Index 38.09 11/15/2018 9:01 AM EDT documented in this encounter Patient Instructions * Patient Instructions* Tamar Guerra, RD - 11/15/2018 9:00 AM EDT BSP instructional support services director Lela [phone] and [place] [phone] Dietitians: [phone] Surgeons/ nurse practitioners: [phone] Nurse line: [phone] Ask your PCP about the timing of your next bone density scan Testing: Labwork: soon. Go to [facility], which is 1 flight below the General Surgery Clinic (or any lab including [facility] (open on Tuesday mornings) Please note that you will always receive a letter with lab results and recommendations. Read the letter carefully and follow recommendations. The letter also contains information regarding your next lab draw. A copy of your office visit today is sent to your primary care transport nurse Next visit: 1 year Routine visits are done at 4.8,12, 18 and 24 months after surgery, and yearly thereafter. Please call [phone] if you do not receive an appointment by 3-4 weeks prior to the expected visit. Medications: 1. Will discuss plan for heartburn management with pharmacist- your current medication may interfere with plavix 2. Further recommendations pending labwork. Vitamins: The following vitamins are recommended: ??? Multivitamins with minerals daily- OK to have Flintstones Complete if you need a chewable option. ??? Vitamin B12 1000 mcg by mouth once daily ??? Calcium citrate 600 mg with Vitamin D 400 units twice daily (2 pills twice a day) OK to dissolve in water or try UpCal D which is a powder ??? Vitamin D 2000 IU daily Nutrition recommendations: - continue to eat balanced meals. - make a list of foods you are able to tolerate when you need to follow a soft/liquid diet. - Try Lactaid, Fairlife or unsweetened soy mil as they are all lactose free. - Your Daily Goals: ?? 1,000-1,200 calories per day (300 calories per meal, 100 calories per snack, 1-2 snacks per day) ?? 60 grams of protein per day (20 grams per meal) ?? 48-64 oz of non-caloric and hydrating fluids per day (6-8, 8 oz cups) ?? Do not drink with meals- pushes food through more quickly, can cause upset stomach Activity: ??? Keep up the good work with daily activity. fe Anti-inflammatory medications such as Ibuprofen (Advil), Aleve [...] Group: Our post surgery support group meets on the first Tuesday of every month from 1-2 PM at [facility]- no registration required Nutrition and Activity apps- Baritastic, My Fitness Pal, Lose It, My Plate Internet resources: www.Pact [employer]arel www.Convene www.bariatriceating.PhotoTLC www.[employer].PhotoTLC/blog [facility] facebook page: [email or web address]ric[facility] Books & Magazines: - Recipes for Life After Weight Loss Surgery by Suly Cruz - Shrink Yourself by Dr Juan Carlos Carlos - Eating Well - www.IntelePeer - Cooking Light- www.[employer] documented in this encounter Progress Notes * Tamar Guerra, RD - 11/15/2018 9:00 AM EDT Bariatric Surgery Program Nutrition Progress Note ? Encounter Type: follow up ?? SUBJECTIVE: ? Topics Discussed/Patient Concerns: ?? Currently able to eat. Sometimes has to go to soft/liquids. Sometimes only liquids. Would like to know what she should eat if she has to go back to soft/liquid foods ?? Has been able to eat solid foods since her UGI, August 2018. + ulceration of her esophagus ?? Current tobacco user. ?? Sister is helping pay for her protein drinks Social History: Has a supportive caser shoe parts. OBJECTIVE: Type of Surgery: non-divided RNY gastric bypass on 05/12/00 ?? Weight History: Date WT HT 64 BMI Comments 06/08/99 306 %EWL 51.8 Pre-op weight 08/13/10 248 30 42.5 ?? 11/11/10 237 37.5 40.7 ?? 07/04/13 236 37.5 40.5 13 Years post-op 10/23/15 238 36.3% 41.6 15.5 years post-op 11/15/16 228# 42.3% 40.5 16.5 years post-op 11/15/18 221# 53% 38.1 18.5 years post-op [place] Body Weight (based on BMI of 25): 146# 30-70% Excess Weight Loss: 194-258#; 50% Excess Weight Loss: 226# ? Vitamin/Mineral Supplements (reported by patient): probiotic Supplement Type Brand/Form Dosage/Amount Frequency Comments Multivitamin pill 1 daily ?? Calcium ? none Wants rx Vitamin B12 pill 1,000 mcg weekly ?? Iron Ferrous sulfate 325 mg None Causes constipation Vitamin D3 pill 2,000 IU daily ?? Vitamin C pill 1,000 mg daily ? Food Allergies/Intolerances:?Lactose intolerant, red meat, sausage, pork chops, lettuce (can tolerate spinach and other leafy greens) ?? 24-Hour Intake: Uses almond breeze. Premier Protein - powder- 25 g per serving. occ has their bars.Can tolerate deli meats and chicken ?? Breakfast Premier protein drink made with almond milk AM Snack Lunch Salad (tomato, cucumber, spinach, cooked kale), 1 slices of ham rolled up PM Snack Premier protein bar, fruit Dinner sm piece of chicken, salad, apple sauce, green beans HS Snack Dessert pudding or Jello ?? Protein/ grams per day: 60 Hydrating fluids- oz/ day: Prune juice nightly, 64 oz water daily, decaf coffee/tea with almond breeze Soda: No ETOH: None Caffeine: None Sweets: 2-3 x week Meals per day: 3 ? Feels full/satisfied after eating: yes ?? Feels hungry [x]never []sometimes []most of the time [] always ?? Drinks with meals: No ?? Practices portion control: Yes ?? Spends at least 20 minutes eating each meal: 20-25 minutes ?? Has had dumping syndrome: None ?? In the past month, pt has vomited/regurgitated: None since August. ?? Constipation/Diarrhea: Occ constipation. Will use MiraLAX if needed- maybe twice per month ?? Exercise: yoga, meditation daily, With niceSportsBeep weather walks daily ?? ASSESSMENT: ?? Summary of Weight Loss: Patient's percent excess weight loss is 47%. Significantly improved PO intake since UGI. Discussed modified diet plans, advised pt it may be a bit of trial and error to see what she can/cannot tolerate if her PO tolerance decreases again. Encouraged tobacco cessation which pt is contemplating. Fluid intake is good. Reviewed vitamin and mineral supplementation. Encouraged exercise. ?? NUTRITION INTERVENTION & MONITORING: ?? Provided support/encouragement and reinforced importance of meeting nutritional goals. - continue to eat balanced meals. - make a list of foods you are able to tolerate when you need to follow a soft/liquid diet. - Try Lactaid, Fairlife or unsweetened soy milk as they are all lactose free. ?? Reviewed nutrition and vitamin and mineral supplement recommendations (see patient instructions). ??? Multivitamins with minerals daily- OK to have Flintstones Complete if you need a chewable option. ??? Vitamin B12 1000 mcg by mouth once daily ??? Calcium citrate 600 mg with Vitamin D 400 units twice daily (2 pills twice a day) OK to dissolve in water or try UpCal D which is a powder ??? Vitamin D 2000 IU daily ?? Written recommendations provided. Patient agreed with these and verbalized adequate understanding. ?? Evaluation by nurse practitioner today. * Sidra Del Toro T - 11/15/2018 9:00 AM EDT Reason for visit: Follow up S/P partitioned, non-divided Genesis en Y gastric bypass on 05/12/00 Complications summary: Early unknown Late Question of staple line breakdown by barium swallow in 2010, normal EGD November 2015 Visits summary: Compliance with follow up: less than ideal Visit date Wt (lbs) BMI Pre-op 06/08/99 [...] nl x ALP 115 11/15: ordered, pending Post op wt history: 222 pounds on 02/20/01, 238 pounds on 03/30/02, 242 pounds on 10/04/02, 255 pounds on 10/22/03, 263 pounds on 05/26/05, 222 pounds on 10/11/05 Date Evaluation Results Primary care 09/19/18 EGD Irregular z-line Ulcerated appearing distal esophagus Atrophic appearing stomach Gastric pouch, ??biopsy: Body/fundic-type mucosa with parietal cell hyperplasia consistent with PPI effect. B Z line at 35 cm, ?? biopsy: Squamocolumnar junctional mucosa (cardia type) with mild chronic inflammation. ??There is no evidence of intestinal metaplasia. Mid esophagus, ??biopsy: Squamous mucosanegative for diagnostic abnormality. 12/03/15 EGD Unremarkable, normal gastric bypass anatomy. Path: A - Irregular Z line, ?? biopsy: Squamocolumnar junctional mucosa (cardia type) with mild chronic inflammation. No evidence of intestinal metaplasia. Stomach, ??biopsy: Body/fundic-type mucosa with parietal cell hyperplasia c/w PPI effect. 09/28/16 CT abd APD Non contrast study to evaluate RUQ pain: limited study,no acute findings. Atrophic changes right rectus muscle 08/24/10 Ba swallow Although the initial images showed contrast filling a mildly dilated pouch, withtime of contrast was clearly seen within the cheesh-na fundus indicating a leak. The site of the leak was not identified, but it is assumed to be relatively high. Contrast flowed freely through the anastomosis and no retrograde flow was seen in the afferent loop.There is mild dilatation in the region of the Genesis-en-Y anastomosis. - Discussed at team meeting in 2010, questionable benefit to revision surgery given lack of symptoms, not a surgical candidate based on tobacco use ? Colonoscopy ? Mammogram - Pap [facility] 10/29/15 DEXA Osteoporosis left hip, treated with oral bisphosphonate therapy by PCP, start date unknown, stop date sometime in 2018 11/07/02 DEXA normal Problem List ??? Pre-operative Class IV obesity BMI 51.8, S/P gastric bypass, question of staple line breakdown since 2010, recent EGD 08/2018 without evidence of stable line breakdown ??? Hypertension: current treatment with lisinopril and metoprolol ??? Type 2 diabetes: no current treatment requirements. Repeat A1c pending ??? GERD: Symptomatic at night, taking omeprazole 20 mg daily BID CAD, S/P percutaneous coronary angioplasty: currently stable, remains on clopidogrel A. [facility]F [facility] x 2 to 90% stenosis of proximal 1 LAD and 60% stenosis of proximal 2 LAD on 04/16/13 ??? Musculoskeletal issues: : current treatment with meloxicam A. Cervicalgia B. lumbago ??? Chronic RUQ pain, attributed to musculoskeletal etiology ??? Hypothyroidism ??? COPD ??? Tobacco dependence, started at age 11, highest use 2.5 PPD: she continues to smoke, not ready to quit, she briefly quit last year. Her Brandon continues to smoke ??? Psychological issues: Remains stable with regular counseling Luis, bekah jerri Howell in [place]. She continues to do self-hypnosis, drawing and meditation a. anxiety and panic disorder b. history of depression c. Borderline Personality d/o d. history of self mutilation (burning skin) e. PTSD f. Multiple psychiatric hospitalizations, last 2005 g. schizophrenia ? ? Polysubstance abuse in remission: reports no alcohol use in >20 years ??? History of bulimia: denies purging since 2005 ??? Nonepileptic seizures: none, controlled with self-hypnosis Past Surgical History: Procedure Laterality Date ??? CHOLECYSTECTOMY, OPEN 1991 ??? CREATED BY INTERFACE a carotid bypass Procedure Date: Unknown ??? DENTAL SURGERY 1998 complete dental extractions ??? GASTRIC BYPASS SURGERY 05/05/2000 open, non-divided. Dr Trejo ??? HYSTERECTOMY, TOTAL ABDOMINAL 1985 ??? LIPECTOMY 2001 ??? PRO UPPER GI ENDOSCOPY, BIOPSY N/A 12/03/2015 EGD WITH BIOPSY performed by Ken Sanders MD at [facility] ??? PRO UPPER GI ENDOSCOPY, BIOPSY N/A 09/19/2018 UPPER GASTROINTESTINAL ENDOSCOPY,WITH BIOPSY SINGLE OR MULTIPLE (WRVU 2.49) performed by Tyron Mercado MD at [facility] ??? TONSILLECTOMY ??? UPPER GI ENDOSCOPY, EXAM 12/04/2010 UPPER GI ENDOSCOPY performed by DEE WRIGHT at [facility] Allergies: as per allergy list Medications 11/15/18 0926 Medication Sig Taking? tiotropium (SPIRIVA WITH HANDIHALER) 18 mcg Capsule, w/Inhalation Device Inhale 18 mcg into the lungs daily. Yes aspirin 81 mg Tablet, Delayed Release (E.C.) Take 81 mg by mouth daily. Yes isosorbide mononitrate (IMDUR) 60 mg Tablet Sustained Release 24 hr Take 1 tablet by mouth daily. Yes lisinopril (PRINIVIL;ZESTRIL) 20 mg Tablet Take 20 mg by mouth daily. Yes sertraline (ZOLOFT) 50 mg Tablet 1 tablet daily. Yes ASCORBIC ACID, VITAMIN C, ORAL Take 1,000 mg by mouth daily. Yes tiZANidine (ZANAFLEX) 4 mg Tablet Take 4 mg by mouth 3 times daily. Yes polyethylene glycol (MIRALAX) 17 gram/dose Powder Take 1 g by mouth as needed. Yes lamoTRIgine (LAMICTAL) 200 mg Tablet Take 200 mg by mouth daily. Yes promethazine (PHENERGAN) 25 mg tablet Take 25 mg by mouth 3 times daily. Yes TAMSULOSIN HCL (TAMSULOSIN ORAL) Take by mouth daily. Yes simvastatin (ZOCOR) 40 mg tablet Take 1 tablet by mouth nightly. Yes metoprolol succinate (TOPROL-XL) 25 mg 24 hr tablet TAKE 1 TABLET BY MOUTH DAILY. Yes prazosin (MINIPRESS) 2 mg capsule Take 6 mg by mouth nightly. Yes traZODone (DESYREL) 100 mg tablet Take 150 mg by mouth nightly. Yes albuterol (PROAIR HFA) 90 mcg/actuation inhaler Inhale 2 puffs into the lungs every 4 hours as needed. Use with spacer Yes clopidogrel (PLAVIX) 75 mg tablet Take 1 tablet by mouth daily. Yes nitroGLYcerin (NITROSTAT) 0.[address] 1 tablet under the tongue every 5 minutes as needed for Chest pain. Do not use more than 3 doses in 15 minute time period Yes methocarbamol (ROBAXIN) 500 mg tablet Take 500 mg by mouth 4 times daily. Yes fluticasone-salmeterol (ADVAIR DISKUS) 500-50 mcg/dose diskus inhaler 1 Disk(s), Inh, Twice daily Yes levothyroxine (SYNTHROID) 50 mcg tablet 50MCG, PO, Once daily Yes Visits to emergency department or other unplanned visit to a health care facility since last visit?Admission for dysphagia and bronchitis Changes to health/ evaluations/ social history since last visit: as per updated problem list and e-DH. She had an EGD during her recent hospitalization, which showed a ulcerated distal esophagus Subjective. Patient concerns at today's visit: Jeannie returns for routine annual follow up. She isn't toleratingiron due to constipation, and calcium pills too large, so has stopped both with exception of B12 and vitamin D, both are prescribed by her primary care physician. She reports difficulty with swallowing, vomiting for months out of the year, switches to a soft andsometimes liquid diet, improved after recent EGD in late August. She reports that the omeprazole was discontinued by her PCP a few months ago, was started on zantac and probiotics, and restarted onomeprazole after her EGD She has lost weight since her last visit. She is intolerant to red meat and lactose Bowel regimen: generally regular, miralax twice a week NSAID use: + Dietary and physical activity history: As per RD nonte Review of Systems (negative if left blank): Constitutional: [] fatigue [] pica [x] restless leg at night Neurologic: [] paresthesias [] memory loss CV: [x] treatment for hypertension or taking antihypertensive medication [x] treatment for hyperlipidemia Pulmonary: [] sleep apnea symptoms [] treatment for KARINA GI: [] GERD [] dysphagia [] dumping [] abdominal pain [] hernia [] nausea/vomiting [] blood in stool [] chronic diarrhea/ constipation [employer]: [] LMP: [] control [] menorrhagia [x] post-menopause Heme/Lymph: [] excessive bruising or bleeding [] blood donor in past year Psychiatric [] mental health concerns Other: Employment/social: disabled/ to Brandon who has schizophrenia Health-related habits: Nicotine: as noted above Alcohol: none Physical activity: as per RD Objective: General: 58 y.o. year-old female looks well, appears upbeat. She is accompanied by her special effects specialist, Dorcas Heart: Normal S1S2. RRR Lungs: CTA bilaterally without wheezing Abdomen: soft, non-tender. Abdominal scars including upper midline scar and upper abdominal transverse panniculectomy scars well-healed, without evidence of hernia. Extremities: no lower extremity edema Vital signs: BP 139/83 Pulse 53 Temp 36.7 ??C (98.1 ??F) (Oral) Resp 14 Ht 162.6 cm (5' 4) Wt 100.7 kg (221 lb 14.4 oz) SpO2 97% BMI 38.09 kg/m?? Assessment: S/P remote gastric bypass, with loss of 53% of excess body weight. Ongoing tobacco dependence, recent EGD with ulcerated distal esophagus. Episodic dysphagia. Osteoporosis Plan: ?? Jeannie healthy lifestyle efforts were acknowledged. Dietary/ exercise recommendations: as per Raven Guerra RD LD ?? Advised of resources for smoking cessation. At this time, she is not interested in smoking cessation. She was advised that her upper GI symptoms ?? Given potential interaction of clopidigrel and omeprazole, switched to pantoprazole 20 mg twice a day. She will call if experiences further symptoms of dysphagia ?? Discussion regarding constipation, recommend miralax daily ?? E- medical record since last BSP visit reviewed ?? Non-supplement medication recommendations: ?? Advised to check with her primary care team regarding the timing of her next bone density scan ?? Next BSP visit: 1 year ?? Next labwork: ordered, pending ?? Additional vitamin and mineral supplement recommendations (*in addition to usual post surgery supplements, as noted below): restart bariatric supplements per guidelines, further recommendations pending lab results. ?? Advised to call if develops unexplained abdominal pain, concerns or questions. Risks specific tobariatric procedure discussed She was provided with a Bariatric Program Summary report which included the above recommendations, as well as information on vitamin and mineral supplementation, fluids, exercise and support group meetings. She has had an opportunity to have all her questions answered and is in agreement with the plan of care. RECOMMENDED BARIATRIC SURGERY PROGRAM POSTOPERATIVE FOLLOW-UP: Follow up: done at 4, 8,12 and 18 and 24 months, and yearly thereafter. High risk patients are evaluated on a more frequent basis. *Supplement recommendations: Multivitamin with minerals twice a day, B12 500 mcg once a day, calcium citrate 600 mg/400 units vitamin D twice a day, iron (ferrous fumarate, polysaccharide iron taken with vitamin C 250 mg once a day) for menstruating females or those with DORIAN. Labwork: Hemogram, ferritin, iron (transferrin) saturation, iron, folate, Vitamins B1, B12, D (25 hydroxy only), Intact PTH and comprehensive metabolic profile at 4, 12 and 24 months, and yearly. Prealbumin is done at 4 and 12 months and PRN. If labwork is done by the primary care transport nurse: pleasesend a copy to the Bariatric Surgery Program, General Surgery Clinic, [facility], Questions regarding [facility] Bariatric Surgery Program patients: please call the Bariatric Surgery Program at [phone] documented in this encounter Plan of Treatment Not on file documented as of this encounter Results * (ABNORMAL) Hemoglobin A1c (02/07/2019 12:41 PM EDT) Hemoglobin A1C 5.9(H) 4.3 - 5.6 % [facility] Est Avg Gluc 123 mg/dL [facility] Blood specimen (specimen) 02/07/2019 12:41 PM EDT 02/07/2019 2:07 PM EDT Narrative Resulting Agency Comment Spec In Lab / APD Sidra Del Toro VIDEO CLERK CHEMISTRY ORDERAB LES Performing Organization Address [facility] Co de Phone Number [facility] [address] [place] [address] * (ABNORMAL) Iron and TIBC (02/07/2019 12:41 PM EDT) Iron 64 30 - 150 mcg/dL [facility] TIBC 351 250 - 450 mcg/dL [facility] Iron Saturation 18(L) 20 - 50 % [facility] Blood specimen (specimen) 02/07/2019 12:41 PM EDT 02/07/2019 2:05 PM EDT Narrative Resulting Agency Comment Spec In Lab / APD Sidra Del Toro VIDEO CLERK CHEMISTRY ORDERAB LES Performing Organization Address City/[facility]/ZIP Co de Phone Number [facility] [address] [place] [address] * (ABNORMAL) Ferritin (02/07/2019 12:41 PM EDT) Ferritin 19(L) 30 - 400 ng/mL [facility] Comment: Pediatric reference ranges not verified at [facility], interpret with caution. Reference ranges for females greater than 50 years of age approach values for men, i.e., 30-400 ng/mL. Blood specimen (specimen) 02/07/2019 12:41 PM EDT 02/07/2019 2:05 PM EDT Narrative Resulting Agency Comment Spec In Lab / APD Sidra Katarina Alverto VIDEO CLERK CHEMISTRY ORDERAB LES Performing Organization Address City/[facility] Co de Phone Number LABORATORY [address] [place] [address] * (ABNORMAL) PTH (02/07/2019 12:41 PM EDT) PTH 71(H) 15 - 65 pg/mL [facility] Blood specimen (specimen) 02/07/2019 12:41 PM EDT 02/07/2019 3:55 PM EDT Narrative Resulting Agency Comment Spec In Lab / APD Sidra Del Toro VIDEO CLERK CHEMISTRY ORDERAB LES Performing Organization Address [facility] Co de Phone Number [facility] [place] [address] * Vitamin B12 (02/07/2019 12:41 PM EDT) Vitamin B-12 603 232 - 1,245 pg/mL [facility] Blood specimen (specimen) 02/07/2019 12:41 PM EDT 02/07/2019 3:55 PM EDT Narrative Resulting Agency Comment Spec In Lab / APD Sidra Del Toro VIDEO CLERK CHEMISTRY ORDERAB LES Performing Organization Address [facility] Co de Phone Number [facility] [place] [address] * Vitamin B1, whole blood (02/07/2019 12:41 PM EDT) Vit B1 Lvl WB 128 70 - 180 nmol/L [facility] Comment: ADDITIONAL INFORMATION This test was developed and its performance characteristics determined by [facility] in a manner consistent with CLIA requirements. This test has not been cleared or approved by the U.S. Food and Drug Administration. Test Performed by: [facility] [address] [place] [address] Blood specimen (specimen) 02/07/2019 12:41 PM EDT 02/07/2019 5:37 PM EDT Narrative Resulting Agency Comment Spec In Lab / APD Sidra Del Toro APRN CHEMISTRY ORDERAB LES [facility] [address] [place] [address] * Vitamin D, 25-Hydroxy (02/07/2019 12:41 PM EDT) 25-OH Vit D Total 36 30 - 100 ng/mL [facility] Comment: Deficient <10 ng/mL Insufficient 10 to 29 ng/mL Sufficient 30 to 100 ng/mL Potential Intoxication >100 ng/mL According to the [place] National Osteoporosis Foundation, Vitamin D concentrations >30 ng/mL are sufficient to protect bone health. ??The National Kidney Foundation has similarly stated that patients with Vitamin D concentrations <30ng/mL should be considered to be insufficient or deficient. [email or web address] The [employer] iSYS Vitamin D Immunoassay detects both 25-OH Vitamin D2 and 25-OH Vitamin D3, but only a total Vitamin D concentration is reported. Blood specimen (specimen) 02/07/2019 12:41 PM EDT 02/08/2019 7:27 AM EDT Narrative Resulting Agency Comment Spec In Lab / APD Sidra Del Toro APRN CHEMISTRY ORDERAB LES Performing Organization Address City/[facility]/ZIP Co de Phone Number [facility] [place] [address] * Folate, serum (02/07/2019 12:41 PM EDT) Folate Lvl 8.6 4.8 - 24.2 ng/mL [facility] Blood specimen (specimen) 02/07/2019 12:41 PM EDT 02/07/2019 3:55 PM EDT Narrative Resulting Agency Comment Spec In Lab / APD Sidra Del Toro VIDEO CLERK CHEMISTRY ORDERAB LES [facility] [place] [address] documented in this encounter Visit Diagnoses Diagnosis Disorder of iron metabolism Other disorders of iron metabolism Status post bariatric surgery Bariatric surgery status Intestinal malabsorption, unspecified type Gastroesophageal reflux disease, esophagitis presence not specified Vitamin D deficiency Unspecified vitamin D deficiency History of diabetes mellitus Personal history of other endocrine, metabolic, and immunity disorders Constipation, unspecified constipation type documented in this encounter Care Teams Corn Picker Relationship Specialty Start Date End Date Yisel Marroquin MD [address] [place] [address] PCP - General 11/13/18 03/05/19 documented as of this encounter
--- OUTSIDE RECORDS SUMMARY | 2024-02-22 00:55 | XMS_ITS | Encounter Summary ---
Author Organization [facility] Address [facility] [place] [address] Care Team Providers Care Manager Maintenance Name Role Phone Yisel Marroquin MD Primary Care Provider [phone] Encounter Details Date Type Department Care Team (Late st Contact Info) Description 01/13/2016 Abstract [place] Conversion Results [address] [place] [address] Apd Conversion, Flowsheet Provider, Social History Tobacco Use Types Packs/Day Years Used Date Smoking Tobacco: Every Day Cigarettes Smokeless Tobacco: Never Comments:today is quit day 1 Alcohol Use Standard Drinks/Week Comments No 0 (1 standard drink = 0.6 oz pur e alcohol) Sex and Gender Information Value Date Recorded Sex Assigned at Not on file Gender Identity Not on file Sexual Orientation Not on file documented as of this encounter Last Filed Vital Signs Vital Sign Reading Time Taken Comments Blood Pressure 110/75 01/13/2016 8:26 AM EDT Sourced from APD Conversion Pulse - - Temperature - - Respiratory Rate - - Oxygen Saturation - - Inhaled Oxygen Concentration - - Weight 106.4 kg (234 lb 9.1 oz) 01/13/2016 8:26 AM EDT Sourced from APD Conversion Height - - Body Mass Index 40.26 12/03/2015 7:59 AM EDT documented in this encounter Plan of Treatment Not on file documented as of this encounter Visit Diagnoses Not on filedocumented in this encounter Care Teams Manager Maintenance Relationship Specialty Start Date End Date Yisel Marroquin MD [address] [place] [id number] PCP - General 11/13/18 03/05/19 documented as of this encounter
--- OUTSIDE RECORDS SUMMARY | 2024-02-22 00:55 | XMS_ITS | Encounter Summary ---
Author Organization [facility] Address [facility] [place] [address] Care Team Providers Care Animal Therapist Name Role Phone Yisel Marroquin MD Primary Care Provider [phone] Encounter Details Date Type Department Care Team (Late st Contact Info) Description 01/04/2018 Orders Only Radiology and Cardiology Results [address] [place] [phone] Apd Conversion, Results Provider, Social History Tobacco Use Types Packs/Day [...] Procedure Name Priority Date/Time Associated Diagnosis Comments U ALBUMIN/CRE RATIO Routine 01/04/2018 documented in this encounter Results * (ABNORMAL) U Albumin/Cre Ratio (01/04/2018) Alb/Cr Ratio, Random 5.5(Electron Gun Assembler al Lab) 0 - 29 [facility] CONVERSION U Creatinine 38.0(Exter nal Lab) [facility] CONVERSION U Albumin Conc, Random 2.1(Electron Gun Assembler al Lab) [facility] CONVERSION 01/04/2018 Results Provider Apd Conversion URINE ORDERABLES [facility] CONVERSION documented in this encounter Visit Diagnoses Not on filedocumented in this encounter Care Teams Animal Therapist Relationship Specialty Start Date End Date Yisel Marroquin MD [address] [place] [address] PCP - General 11/13/18 03/05/19 documented as of this encounter
--- OUTSIDE RECORDS SUMMARY | 2024-02-22 00:55 | XMS_ITS | Encounter Summary ---
Author Organization [facility] [place] [address] Care Team Providers Care Candy Spreader Helper Name Role Phone Yisel Marroquin MD Primary Care Provider [phone] Encounter Details Date Type Department Care Team (Late st Contact Info) Description 05/19/2017 Abstract [place] Conversion Results [address] [place] [address] Apd Conversion, Flowsheet Provider, Social History Tobacco [...] Sign Reading Time Taken Comments Blood Pressure 144/66 05/19/2017 3:42 PM EDT Sourced from APD Conversion Pulse - - Temperature - - Respiratory Rate - - Oxygen Saturation - - Inhaled Oxygen Concentration - - Weight 102 kg (224 lb 13.9 oz) 05/19/2017 3:42 PM EDT Sourced from APD Conversion Height - - Body Mass Index 38.6 12/13/2016 10:08 AM EDT documented in this encounter Plan of Treatment Not on file documented as of this encounter Visit Diagnoses Not on filedocumented in this encounter Care Teams Candy Spreader Helper Relationship Specialty Start Date End Date Yisel Marroquin MD [address] [place] [id number] PCP - General 11/13/18 03/05/19 documented as of this encounter
--- OUTSIDE RECORDS SUMMARY | 2024-02-22 00:55 | XMS_ITS | Encounter Summary ---
Author Organization [facility] Address [facility] [place] [address] Care Team Providers Care Aviation Safety Inspector Name Role Phone Aman Lawrence APRN Primary Care Provider [phone] Encounter Details Date Type Department Care Team (Late st Contact Info) Description 05/19/2016 Telephone Cardiology at [address] [phone] Freddy Mejias MD [facility] [place] [address] Social History Tobacco Use Types Packs/Day Years [...] encounter Miscellaneous Notes * Telephone Encounter - Freddy Mejias MD - 05/19/2016 9:18 AM EDT Only 1 brief episode of chest pain since taking the increased dose of Lisinopril and being started on 30 mg of Isosorbide Mononitrate. BP under better control. Will continue with her current medical regimen. Seeing me in 3 weeks in clinic. Can advance the dose of long acting nitrates if she has anyrecurrent chest pain. documented in this encounter Plan of Treatment Not on file documented as of this encounter Visit Diagnoses Not on filedocumented in this encounter Care Teams Aviation Safety Inspector Relationship Specialty Start Date End Date Aman Lawrence APRN [address] [place] [address] PCP - General 06/16/10 06/27/18 documented as of this encounter
--- OUTSIDE RECORDS SUMMARY | 2024-02-22 00:55 | XMS_ITS | Encounter Summary ---
Author Organization [facility] [place] [address] Care Team Providers Care Flocculator Operator Name Role Phone Yisel Marroquin MD Primary Care Provider [phone] Encounter Details Date Type Department Care Team (Late st Contact Info) Description 12/11/2015 Orders Only Radiology and Cardiology Results [address] [place] [phone] Apd Conversion, Results Provider, Social History Tobacco [...] Procedure Name Priority Date/Time Associated Diagnosis Comments LIPID PANEL (REFLEX DIRECT LDL) Routine 12/11/2015 documented in this encounter Results * (ABNORMAL) Lipid Panel (12/11/2015) Chol/HDL Ratio 2.7(ExtL) 3.2 - 4.4 [facility] CONVERSION VLDL 31.2(Exte rnal Lab) [facility] CONVERSION LDL Cholesterol 35(Collection Systems Technician al Lab) [facility] CONVERSION HDL 39(ExtL) 40 - 60 [facility] CONVERSION Triglycerides 156(ExtH) 30 - 150 [facility] CONVERSION Chol, Total 105(Exter nal Lab) 50 - 200 [facility] CONVERSION 12/11/2015 Results Provider Apd Conversion MD JASON ESTRELLA ORDERABLES KOIR CONVERSION documented in this encounter Visit Diagnoses Not on filedocumented in this encounter Care Teams Flocculator Operator Relationship Specialty Start Date End Date Yisel Marroquin MD [address] [place] [address] PCP - General 11/13/18 03/05/19 documented as of this encounter
--- OUTSIDE RECORDS SUMMARY | 2024-02-22 00:55 | XMS_ITS | Encounter Summary ---
Author Organization [facility] Address [facility] [address] [place] [address] Care Team Providers Care Kai Whakaruruhau Name Role Phone Aman Lawrence APRN Primary Care Provider [phone] Encounter Details Date Type Department Care Team (Late st Contact Info) Description 02/28/2018 Interpretation Only [facility] [address] [place] [phone] Sherly Earl APRN [address] [place] [address] Social History Tobacco Use Types Packs/Day Years [...] Diagnosis Comments XR CHEST PA AND LATERAL Routine 02/28/2018 9:52 AM EDT documented in this encounter Results * XR Chest PA & Lateral (Generic) (02/28/2018 9:52 AM EDT) Anatomical Region Laterality Modality Chest N/A Radiographic Ara ging 02/28/2018 9:52 AM EDT Impressions 02/28/2018 10:18 AM EDT No radiographic evidence of pneumonia. If symptoms persist, consider chest CT for further evaluation. Narrative 02/28/2018 10:18 AM EDT EXAMINATION: CHEST PA/LAT (2VWS) -ROUTN CLINICAL HISTORY: HX OF RECENT BRONCHITIS, HX OF ASTHMA, COUGH FOR 2 WEEKS, ?? TECHNIQUE: PA and lateral chest COMPARISON: Chest x-ray 04/15/2013 FINDINGS: The cardiomediastinal silhouette and nano are within normal limits. The central pulmonary vascular markings are prominent, though with distinct margins. There are streaky opacities in each lung base, likely reflecting subsegmental atelectasis. No pleural effusion. No pneumothorax. Allowing for patient rotation there is no tracheal deviation. Visualized osseous structures are intact with mid thoracic spine degenerative change present. Procedure Note Bandar Tejeda MD - 02/28/2018 EXAMINATION: CHEST PA/LAT (2VWS) -ROUTN CLINICAL HISTORY: HX OF RECENT BRONCHITIS, HX OF ASTHMA, COUGH FOR 2WEEKS, TECHNIQUE: PA and lateral chest COMPARISON: Chest x-ray 04/15/2013 FINDINGS: The cardiomediastinal silhouette and nano are within normal limits. Thecentral pulmonary vascular markings are prominent, though with distinct margins.There are streaky opacities in each lung base, likely reflecting subsegmental atelectasis. No pleural effusion. No pneumothorax. Allowing for patient rotation there is no tracheal deviation. Visualized osseous structures are intact with mid thoracic spinedegenerative change present. IMPRESSION No radiographic evidence of pneumonia. If symptoms persist, consider chestCT for further evaluation. Sherly Earl APRN IMG DX ORDERABLES documented in this encounter Visit Diagnoses Not on filedocumented in this encounter Care Teams Kai Whakaruruhau Relationship Specialty Start Date End Date Aman Lawrence [place] [address] [place] [address] PCP - General 06/16/10 06/27/18 documented as of this encounter
--- OUTSIDE RECORDS SUMMARY | 2024-02-22 00:55 | XMS_ITS | Encounter Summary ---
Author Organization [facility] [place] [address] Care Team Providers Care Still Runner Name Role Phone Yisel Marroquin MD Primary Care Provider Encounter Details Date Type Department Care Team (Late st Contact Info) Description 11/22/2017 Abstract [place] Conversion Results [address] [place] [address] Apd Conversion, Flowsheet Provider, Social History Tobacco [...] Sign Reading Time Taken Comments Blood Pressure 132/78 11/22/2017 9:46 AM EDT Sourced from APD Conversion Pulse - - Temperature - - Respiratory Rate - - Oxygen Saturation - - Inhaled Oxygen Concentration - - Weight 105.6 kg (232 lb 12.9 oz) 11/22/2017 9:46 AM EDT Sourced from APD Conversion Height - - Body Mass Index 40.24 08/22/2017 10:40 AM EST documented in this encounter Plan of Treatment Not on file documented as of this encounter Visit Diagnoses Not on filedocumented in this encounter Care Teams Still Runner Relationship Specialty Start Date End Date Yisel Marroquin MD [address] [place] [address] PCP - General 11/13/18 03/05/19 documented as of this encounter
--- OUTSIDE RECORDS SUMMARY | 2024-02-22 00:55 | XMS_ITS | Encounter Summary ---
Author Organization [facility] Address [facility] [place] [address] Care Team Providers Care Land Checker Name Role Phone Yisel Marroquin MD Primary Care Provider [phone] Encounter Details Date Type Department Care Team (Late st Contact Info) Description 09/28/2016 Interpretation Only Radiology [address] [place] [address] [place] [address] Unknown None Social History Tobacco Use Types Packs/Day Years [...] Name Priority Date/Time Associated Diagnosis Comments XR ABDOMEN 1 VIEW Routine 09/28/2016 9:3 7 AM EST documented in this encounter Results * XR Abdomen 1 view (Generic) (09/28/2016 9:37 AM EST) Anatomical Region Laterality Modality Abdomen N/A Radiographic Ara ging 09/28/2016 9:37 AM EST Narrative 09/28/2016 9:37 AM EST APD Historical Result Principal Ecological Modeler: ??JENNY ??SYEDA STACK: INDICATION: ??The patient has 3 days of right upper quadrant pain. ??The patient rates pain 7/10 on the pain scale. Supine view of the abdomen is performed on 3 images. ??Supine image is limited in evaluation for free air. ??There are surgical clips in right upper quadrant in the area of the stomach. ?? Nonspecific bowel gas pattern. ??There is air and stool seen throughout the colon. ??Visualized soft tissue planes are unremarkable. ??Degenerative changes in the spine noted. ??No abnormal calcifications are appreciated. IMPRESSION: No renal calculi identified. Jenny Landa MD [facility]/rr [id number] Procedure Note Unknown - 01/22/2019 APD Historical Result Principal Ecological Modeler: JENNY LANDA KUB: INDICATION: The patient has 3 days of right upper quadrant pain. Thepatient rates pain 7/10 on the pain scale. Supine view of the abdomen is performed on 3 images. Supine image islimited in evaluation for free air. There are surgical clips in right upper quadrant in the areaof the stomach. Nonspecific bowel gas pattern. There is air and stool seen throughout the colon.Visualized soft tissue planes are unremarkable. Degenerative changes in the spine noted. Noabnormal calcifications are appreciated. IMPRESSION: No renal calculi identified. Jenny Landa MD [facility]/rr [id number] Unknown IMG DX ORDERABLES documented in this encounter Visit Diagnoses Not on filedocumented in this encounter Care Teams Land Checker Relationship Specialty Start Date End Date Yisel Marroquin MD [address] [place] [address] PCP - General 11/13/18 03/05/19 documented as of this encounter
--- OUTSIDE RECORDS SUMMARY | 2024-02-22 00:55 | XMS_ITS | Encounter Summary ---
[place] [address] Care Team Providers Care Production Assistant Name Role Phone Aman Lawrence APRN Primary Care Provider [phone] Encounter Details Date Type Department Care Team (Late st Contact Info) Description 12/03/2015 8:22 AM EDT Anesthesia [place] [address] Nilam Hi MD [facility] [place] [address] Francisco Javier Lord MD [facility] [place] [address] Anesthesia Record Procedure Summary Procedure Name Responsible Anesthesiologist Anesthesia Start Time Anesthesia Stop Time EGD WITH BIOPSY (WRVU 2.39) (Trunk) Nilam Hi MD 12/03/15 0822 12/03/15 0836 Events Date Time Event Comment 12/03/2015 0822 AN Verify 0822 Start 0824 An Start Data 0829 An Induction 0831 Anesthesia Ready 0836 an stop data 0836 Recovery or ICU Handoff Liana ent care was transferred to the destination unit staff after review of the patient's medical history, current anesthetic/surgical status and plan, according to the Provider Handoff Checklist. 0836 Stop 12/05/2015 1217 Meds Name Total IV Lidocaine 30 mg Propofol 340 mg lactated ringers infusion 0 mL * Agents Name O2 Auxiliary Flowmeter 1 * Blood No blood administrations on file. Lines, Drains, and Airways Type Details Placement Removal (RETIRED) Peripheral IV Line - Single Lumen 12/03/15; 0807; metacarpal vein right (top of hand); [id number] catheter system; 22 gauge; distraction; 12/03/15; 0852 12/03/15 0807 by Karl Palma RN 12/03/15 0852 by Karl Palma RN documented in this encounter Social History [...] OR Notes * Anesthesia Postprocedure Evaluation - Nilam Hi MD - 12/03/2015 9:18 AM EDT [facility] Department of Anesthesiology Post-procedure Note Patient: Jeannie Rico Procedure Summary Date Anesthesia Start Anesthesia Stop Room / Location 12/03/15 0822 0836 [facility] 7 / [facility] Procedure Diagnosis Surgeon Responsible Provider EGD WITH BIOPSY (N/A Trunk) (? ulcer, Heartburn) Ken Sanders MD Chiang, Laura M, MD All Anesthesia Providers: Anesthesiologist: Nilam Hi MD COFFEE WEIGHER: Dinesh Babin CRNA Last (1hr) Vitals: BP Temp Pulse Resp SpO2 Patient Location: PACU/[facility] Level of Consciousness: Conscious but Sleepy Pain Management: Satisfactory Analgesia PONV: None Cardiovascular Status: At Baseline Respiratory Status: Supplemental O2 (NC or FM) Postoperative Fluid Status: Intravascular EUvolemia Possible Anesthetic Complications: NONE apparent at time of evaluation Final Primary Anesthesia Type: MAC (The anesthetic type performed was the same as planned.) Comments: Nilam Hi MD Patient previously evaluated. * Anesthesia Preprocedure Evaluation - Nilam Hi MD - 12/02/2015 10:05 PM EDT Pre-Anesthesia Evaluation for: Jeannie Rico a 55 y.o. female. Procedure(s): EGD, UPPER GI ENDOSCOPY Patient Active Problem List Diagnosis ??? CAD S/P percutaneous coronary angioplasty ??? Hypertension ??? Smokes cigarettes ??? Hypothyroidism ??? GERD (gastroesophageal reflux disease) ??? Schizophrenia ??? Anxiety ??? Depression ??? Post traumatic stress disorder (PTSD) ??? Hidradenitis suppurativa ??? Obesity, S/P remote gastric bypass in 1995, prior VBG ??? Chronic pain ??? Cervicalgia ??? Lumbago Past Medical History Diagnosis Date ??? Hypertension ??? Diabetes mellitus ??? Depression ??? Thyroid disease Past Surgical History Procedure Laterality Date ??? Created by interface a carotid bypass Procedure Date: Unknown ??? Created by interface cholecystectomy Procedure Date: Unknown ??? Created by interface Entered not Verified Procedure Date: 07/08/2010 ??? Created by interface hysterectomy Procedure Date: Unknown ??? Created by interface tonsillectomy Procedure Date: Unknown ??? Upper gi endoscopy, exam 12/04/2010 UPPER GI ENDOSCOPY performed by DEE WRIGHT at [facility] ??? Abdomen surgery ??? Hysterectomy History Substance Use Topics ??? Smoking status: Current Every Day Smoker -- 2.00 packs/day ??? Smokeless tobacco: Never Used Comment: today is quit day 05/10/13 ??? Alcohol Use: No History Drug Use Not on file Allergies Allergen Reactions ??? Sumatriptan Hives ??? Oxycodone Other (See Comments) drunk feeling, dizzy ??? Oxycodone-Acetaminophen Other (See Comments) dizziness, feels drunk ??? Chantix [Varenicline] psychotic Medications: MAR and/or home medications have been reviewed. Physical Exam: There were no vitals filed for this visit. There is no weight on file to calculate BMI. Airway Assessment: Mallampati: III TM distance: >3 FB Neck ROM: full Cardiovascular Assessment: Rhythm: regular Rate: normal Pulmonary Assessment: breath sounds clear to auscultation Dental Assessment: Misc Assessment: Patient is wearing No contact(s). IV access: Peripheral line Anesthesia Plan: ASA 3 MAC, with a(n) intravenous induction Brief HPI: 55 y.o. with heartburn to OR for EGD Patient Active Problem List: Cervicalgia Chronic pain CAD S/P percutaneous coronary angioplasty Hypertension Smokes cigarettes Hypothyroidism GERD (gastroesophageal reflux disease) Schizophrenia Anxiety Depression Post traumatic stress disorder (PTSD) Hidradenitis suppurativa Obesity, S/P remote gastric bypass in 1995, prior VBG ALLERGIES: -- Sumatriptan -- Hives -- Oxycodone -- Other (See Comments) -- drunk feeling, dizzy -- Oxycodone-Acetaminophen -- Other (See Comments) -- dizziness, feels drunk -- Chantix (Varenicline) -- psychotic -- Marijuana -- Other (See Comments) -- Becomes psychotic METS:>4 Cardiac Symptoms:No CP or SOB with exertion, can do 1 FOS, limited by chronic pain per pt Cath 2013 reviewed. LABS: Lab Results Component Value Date HGB 10.2* 04/17/2013 PLATELET 226 04/17/2013 INR 1.0 04/16/2013 NA 139 04/17/2013 K 3.5 04/17/2013 CREATININE 0.61* 04/17/2013 Type and Screen: No results found for: ABORH Past anesthetic problems:denies Last anesthetic record (on eDH): none NPO status: Reviewed and appropriate Anesthetic Plan: MAC Monitoring: Standard ASA monitors Region - Other Informed Consent: Anesthetic plan and risks discussed with patient. Plan discussed with COFFEE WEIGHER. PAT Staff Note documented in this encounter Miscellaneous Notes * Addendum Note - Nilam Hi MD - 12/05/2015 12:19 PM EDT Addendum created 12/05/15 1219 by Nilam Hi MD Modules edited: Notes Section Notes Section: File: [id number] documented in this encounter Plan of Treatment Not on file documented as of this encounter Visit Diagnoses Not on filedocumented in this encounter Administered Medications Inactive Administered Medications - up to 3 most recent administrations Medication Order MAR Action Action Date Dose Rate Site lactated ringers infusion 30 mL/hr, Intravenous, CONTINUOUS, Starting on Tue12/03/15 at 0815, Until Tue12/03/15 at 0852, Endoscopy (Day of Procedure) New Bag 12/03/2015 8:22 AM EDT lidocaine (PF) (XYLOCAINE) 100 mg/5 mL (2 %) injection PRN, Starting on Tue12/03/15 at 0829, Until Tue12/03/15 at 0836, Anesthesia Intra-op, Routine Given 12/03/2015 8:29 AM EDT 30 mg propofol (DIPRIVAN) 10 mg/mL bolus injection (Anesthesia) PRN, Starting on Tue12/03/15 at 0829, Until Tue12/03/15 at 0836, Anesthesia Intra-op Given 12/03/2015 8:36 AM EDT 200 mg Given 12/03/2015 8:29 AM EDT 140 mg documented in this encounter Care Teams Production Assistant Relationship Specialty Start Date End Date Aman Lawrence APRN [address] [place] [address] PCP - General 06/16/10 06/27/18 documented as of this encounter
--- OUTSIDE RECORDS SUMMARY | 2024-02-22 00:55 | XMS_ITS | Encounter Summary ---
Author Organization [facility] [place] [address] Care Team Providers Care Cloth Reeler Name Role Phone Aman Lawrence APRN Primary Care Provider [phone] Reason for Visit * Reason Onset Date Comments Medication Refill 04/25/2017 Encounter Details Date Type Department Care Team (Late st Contact Info) Description 04/25/2017 Refill Cardiology at [address] [phone] Freddy Mejias MD [facility] [place] [address] Medication Refill Social History Tobacco Use Types [...] on filedocumented in this encounter Care Teams Cloth Reeler Relationship Specialty Start Date End Date Aman Lawrence [place] [address] PCP - General 06/16/10 06/27/18 documented as of this encounter
--- OUTSIDE RECORDS SUMMARY | 2024-02-22 00:55 | XMS_ITS | Encounter Summary ---
[facility] Organization [facility] [place] [address] Care Team Providers Care Independent Consultant Name Role Phone Yisel Marroquin MD Primary Care Provider [phone] Encounter Details Date Type Department Care Team (Late st Contact Info) Description 02/14/2018 Abstract [facility] Conversion Results [address] [place] [address] Apd Conversion, Flowsheet Provider, Social History Tobacco [...] Sign Reading Time Taken Comments Blood Pressure 126/82 02/14/2018 3:31 PM EDT Sourced from APD Conversion Pulse - - Temperature - - Respiratory Rate - - Oxygen Saturation - - Inhaled Oxygen Concentration - - Weight 106 kg (233 lb 11 oz) 02/14/2018 3:31 PM EDT Sourced from APD Conversion Height - - Body Mass Index 40.39 08/22/2017 10:40 AM EST documented in this encounter Plan of Treatment Not on file documented as of this encounter Visit Diagnoses Not on filedocumented in this encounter Care Teams Independent Consultant Relationship Specialty Start Date End Date Yisel Marroquin MD [address] [place] [address] PCP - General 11/13/18 03/05/19 documented as of this encounter
--- OUTSIDE RECORDS SUMMARY | 2024-02-22 00:55 | XMS_ITS | Encounter Summary ---
Author Organization [place] [address] Care Team Providers Care Car Icer Name Role Phone Yisel Marroquin MD Primary Care Provider [phone] Encounter Details Date Type Department Care Team (Late st Contact Info) Description 02/28/2018 Abstract [facility] Conversion Results [address] [place] [id number] Apd Conversion, Flowsheet Provider, Social History Tobacco [...] Sign Reading Time Taken Comments Blood Pressure 128/74 02/28/2018 9:02 AM EDT Nery rced from APD Conversion Pulse - - Temperature - - Respiratory Rate - - Oxygen Saturation - - Inhaled Oxygen Concentration - - Weight - - Height - - Body Mass Index - - documented in this encounter Plan of Treatment Not on file documented as of this encounter Visit Diagnoses Not on filedocumented in this encounter Care Teams Car Icer Relationship Specialty Start Date End Date Yisel Marroquin MD [address] [place] [address] PCP - General 11/13/18 03/05/19 documented as of this encounter
--- OUTSIDE RECORDS SUMMARY | 2024-02-22 00:55 | XMS_ITS | Encounter Summary ---
Author Organization [facility] [place] [address] Care Team Providers Care Certified Appliance Service Technician Name Role Phone Yisel Marroquin MD Primary Care Provider Encounter Details Date Type Department Care Team (Late st Contact Info) Description 08/03/2016 Abstract [facility] Conversion Results [address] [place] [address] Apd Conversion, Flowsheet Provider, Social History Tobacco [...] on filedocumented in this encounter Care Teams Certified Appliance Service Technician Relationship Specialty Start Date End Date Yisel Marroquin MD [address] [place] [address] PCP - General 11/13/18 03/05/19 documented as of this encounter
--- OUTSIDE RECORDS SUMMARY | 2024-02-22 00:55 | XMS_ITS | Encounter Summary ---
Author Organization [facility] Address [facility] [place] [address] Care Team Providers Care Peeler Operator Name Role Phone Aman Lawrence APRN Primary Care Provider [phone] Reason for Visit * Reason Comments Chest Pain Coronary Artery Disease Encounter Details Date Type Department Care Team (Late st Contact Info) Description 05/10/2016 8:00 AM EDT Office Visit Cardiology at [address] [address] Freddy Mejias MD [facility] [place] [address] Chest pain, unspecified type Social History Tobacco Use Types [...] Sign Reading Time Taken Comments Blood Pressure 160/98 05/10/2016 7:41 AM EDT Pulse 60 05/10/2016 7:41 AM EDT Temperature - - Respiratory Rate - - Oxygen Saturation 97% 05/10/2016 7:41 AM EDT on room air Inhaled Oxygen Concentration - - Weight 104.3 kg (230 lb) 05/10/2016 7:41 AM EDT Height 157.5 cm (5' 2) 05/10/2016 7:41 AM EDT Body Mass Index 42.07 05/10/2016 7:41 AM EDT documented in this encounter Patient Instructions * Patient Instructions* Freddy Mejias MD - 05/10/2016 8:00 AM EDT We need to get your blood pressure under better control. To do this we are going to increase your Lisinopril to 40 mg once a day. Currently, you are taking just 20 mg. In addition, I am going to start you on a long acting nitroglycerine preparation. You take that every day. You can still use the small nitro tablets under your tongue. You can use up to 5 nitro's. Ifthe pain persists go to an emergency room. Your heart pain was stop if you stopped smoking. Call me after you have been taking the new medication for a week. I want to know if it is working. [phone]. I will see you back in 1 month. documented in this encounter Progress Notes * Freddy Mejias MD - 05/10/2016 8:00 AM EDT SUBJECTIVE: 54 year old woman with known CAD s/p recent stenting of her LAD. Her cardiac catheterization showed a 90% stenosis of the proximal LAD and a 70% stenosis of the mid LAD. She received ALF x 2. EF was 60% by Echo. Last seen by me 01/07/14. Not seen, as scheduled, in 2014. Patient Active Problem List Diagnosis ??? Osteoporosis DEXA done at [facility] on 10/29/15: osteoporosis at the left hip T-3, and osteopenia of the spine T-1.9 ??? CAD S/P percutaneous coronary angioplasty ??? Hypertension ??? Smokes cigarettes ??? Hypothyroidism ??? GERD (gastroesophageal reflux disease) ??? Schizophrenia ??? Anxiety ??? Depression ??? Post traumatic stress disorder (PTSD) ??? Hidradenitis suppurativa ??? Obesity, S/P remote gastric bypass in 1995, prior VBG ??? Chronic pain ??? Cervicalgia ??? Lumbago Past Surgical History Procedure Laterality Date ??? [...] GI ENDOSCOPY performed by DEE WRIGHT at [facility] ??? Abdomen surgery ??? Hysterectomy ??? Pro upper gi endoscopy, biopsy N/A 12/03/2015 EGD WITH BIOPSY performed by Ken Sanders MD at [facility] No family history on file. Social History Social History ??? Marital status: Spouse name: N/A ??? Number of children: N/A ??? Years of education: N/A Social History Main Topics ??? Smoking status: Current Every Day Smoker Packs/day: 1.00 Types: Cigarettes ??? Smokeless tobacco: Never Used Comment: today is quit day 05/10/13 ??? Alcohol use No ??? Drug use: No ??? Sexual activity: Not on file Other Topics Concern ??? Not on file Social History Narrative Social history: , no children. Lives in [place]. 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 Smoking: Active smoker, 2ppd Alcohol: Prior alcoholic, in remission for 16 years Illicits: Denies Significant family history: + Family history of CAD Current Outpatient Prescriptions Medication Sig Dispense Refill ??? QUEtiapine (SEROQUEL) 25 mg tablet Take 50 mg by mouth as needed. 1-4 times per day ??? HYDROcodone-acetaminophen 5-325 mg per tablet Take 1 tablet by mouth every 4 hours as needed. ??? promethazine (PHENERGAN) 25 mg tablet Take 25 mg by mouth 3 times daily. ??? TAMSULOSIN HCL (TAMSULOSIN ORAL) Take by mouth daily. ??? simvastatin (ZOCOR) 40 mg tablet Take 1 tablet by mouth nightly. 90 tablet 3 ??? OMEPRAZOLE MAGNESIUM ORAL Take 40 mg by mouth daily. ??? metoprolol succinate (TOPROL-XL) 25 mg 24 hr tablet TAKE 1 TABLET BY MOUTH DAILY. 30 tablet 3 ??? meloxicam (MOBIC) 7.5 mg tablet Take 7.5 mg by mouth 2 times daily. ??? prazosin (MINIPRESS) 2 mg capsule Take 4 mg by mouth nightly. ??? lamoTRIgine (LAMICTAL) 100 mg tablet Take 200 mg by mouth daily. 1 1/2 to 2 tablets at night ??? traZODone (DESYREL) 100 mg tablet Take 200 mg by mouth nightly. ??? albuterol (PROAIR HFA) 90 mcg/actuation inhaler Inhale 2 puffs into the lungs every 4 hours as needed. Use with spacer ??? ferrous sulfate 325 mg (65 mg iron) EC tablet Take 325 mg by mouth daily. ??? aspirin 81 mg EC tablet Take 1 tablet by mouth daily. 30 tablet 6 ??? clopidogrel (PLAVIX) 75 mg tablet Take 1 tablet by mouth daily. 30 tablet 6 ??? lisinopril (PRINIVIL;ZESTRIL) 20 mg tablet Take 1 tablet by mouth daily. 30 tablet 6 ??? nitroGLYcerin (NITROSTAT) 0.[address] 1 tablet under the tongue every 5 minutes as needed for Chest pain. Do not use more than 3 doses in 15 minute time period 90 tablet 3 ??? methocarbamol (ROBAXIN) 500 mg tablet Take 500 mg by mouth 4 times daily. ??? fluticasone-salmeterol (ADVAIR DISKUS) 500-50 mcg/dose diskus inhaler 1 Disk(s), Inh, Twice daily ??? levothyroxine (SYNTHROID) 50 mcg tablet 50MCG, PO, Once daily ??? b complex vitamins (B COMPLEX-VITAMIN B12) tablet ??? kjesqejcpswg-noke-kjpfgucz (COMPLETE MULTIVITAMIN) Tab tablet 1 Tablet(s), PO, Once daily ??? calcium citrate-vitamin D (CITRACAL+D) 315-200 mg-unit per tablet 2 Tablet(s), PO, Twice daily ??? ergocalciferol (VITAMIN D) 50,000 unit capsule [id number], PO, TWICE a week No current facility-administered medications for this visit. Allergies Allergen Reactions ??? Sumatriptan Hives ??? Oxycodone Other (See Comments) drunk feeling, dizzy ??? Oxycodone-Acetaminophen Other (See Comments) dizziness, feels drunk ??? Chantix [Varenicline] psychotic ??? Marijuana Other (See Comments) Becomes psychotic HPI: (FROM 01/07/14: Last seen 11 months ago. Has done well. Has used 3 SL NTG over the last 9 months. None at rest. None recently. Taking all her medications and notes no side effects. Has continued to slowly lose weight. Walking 1 mile per day including up a hill. Being seen by Tom GR every 3 months. He is following her lipids, blood glucose, renal function, etc. Unfortunately, smoking 1PPD. also smokes. Has tried numerous aids. Plans to try stopping smoking this summer.) TODAY 05/10/16: Exertional chest/should pain over the last 10 days. 4/10 in intensity. Always relieved within 5 minutes with 1 SL NTG. No associated symptoms. No symptoms at rest. Taking all her medications as prescribed. Still smoking 18 cigarettes/day. Weight up. Not exercising. Remains hypertensive. ROS: The patient denies: General: Unusual fatigue, fever, night sweats Cardiac: Unusual chest pains and/or pressures, unusual AVILA, orthopnea, PND, peripheral edema, new nocturia, palpitations, presyncope, syncope Pulmonary: Cough, wheezing, sputum production, hemoptysis Neuro: TIA or stroke-like symptoms Vascular: Exertional calf, thigh or buttock pain to suggest claudication : Hematuria GI: Melena, bright red blood per rectum MS: Myalgias or arthralgias Endo: Cold or heat intolerance PHYSICAL EXAM Healthy appearing, looking stated age Blood pressure (!) 160/98, pulse 60, height 157.5 cm (5' 2), weight (!) 104.3 kg (230 lb), SpO2 97%. HEENT: Normocephalic, anicteric, pupils equal, round, reactive to light and accomodation Chest: No palpation tenderness Lungs: Clear to auscultation and percussion Cardiac: Normal CVP, carotid up strokes full/not delayed, no carotid bruits, PMI discrete and not displaced, S1, S2 with physiologic splitting, no murmurs/rubs/gallops appreciated Abdomen: Normal bowel sounds, soft, nontender, no organomegaly, liver percusses to 9 cm, no abdominal bruits, abdominal aorta not palpable Pulses: 2+ and symmetrical throughout, no femoral artery bruits, no thrills Extremities: No clubbing, cyanosis, or edema Neuro: Grossly intact ECG 05/10/16: sinus isabelle at 50 bpm, otherwise unchanged from prior tracing ASSESSMENT AND PLAN: (FROM 01/07/14: No evidence of concerning active ischemia, ventricular or valvular dysfunction or concerning arrhythmias. On guideline therapy. Actively engaging in risk factor modification. Have asked her to decrease her Toprol XL to 12.5 mg QD given low resting heart rate. Canstop her Plavix 04/24/14. Must stop smoking. Offered her assistance from our smoking cessation group. She wants to try on her own. Encouraged her to continue efforts at weight loss and exercise. Will ask for a copy of her recent blood work.) TODAY 05/10/16: Has the recurrence of typical angina in a stable pattern. Will benefit from improveBP control, long acting nitrates and smoking cessation. Increased Lisinopril to 40 mg qd. E-faxed aprescription for 30 mg Isosorbide Mononitrate. Firmly stated she must stop smoking. She declined Chantix and/or nicotine patches. Will attend a smoking cessation workshop. Can use up to 5 SL NTG. Should seek medical attention for crescendo pain. Will call me after she has been on her new medicationfor 1 week. Time was spent in a face to face conversation with the patient (and accompanying family members, ifpresent) regarding my impressions and recommendations and providing counseling. All questions were answered to the patient's (and accompanying family's, if present) satisfaction. I will plan to see the patient back in follow-up in 1 month. documented in this encounter Miscellaneous Notes * Addendum Note - Amanda Rand - 05/10/2016 8:44 AM EDTAddended by: AMANDA RAND on: 05/10/2016 08:44 AM Modules accepted: Orders documented in this encounter Plan of Treatment Not on file documented as of this encounter Procedures Procedure Name Priority Date/Time Associated Diagnosis Comments HEMOGRAM Routine 05/10/2016 8:52 AM EDT Chest pain, unspecified type DIFFERENTIAL, AUTOMATED Routine 05/10/2016 8:52 AM EDT Chest pain, unspecified type CBC (WITH DIFF) Routine 05/10/2016 8:52 AM EDT Chest pain, unspecified type EKG 12-LEAD Routine 05/10/2016 7:53 AM EDT Chest pain, unspecified type LAB SCAN Routine 05/03/2016 documented in this encounter Results * (ABNORMAL) Differential, Automated (05/10/2016 8:52 AM EDT) Neutrophils % 66.6 % [facility] Neutr Abs (ANC) 7.47(H) 1.70 - 6.10 x10(3)/[facility] Lymphocytes % 25.1 % [facility] Lymphocytes Abs 2.8 0.9 - 3.2 x10(3)/[facility] Monocytes % 6.2 % [facility] Monocyte Abs 0.7 0.3 - 0.9 x10(3)/[facility] Eosinophils % 1.1 % [facility] Eosinophils Abs 0.1 0.0 - 0.4 x10(3)/[facility] Basophils % 0.6 % [facility] Basophils Abs 0.1 0.0 - 0.1 x10(3)/[facility] Immature Gran % 0.40 % [facility] Comment: Immature granulocytes(IG's)percentage and absolute count will include metamyelocytes, myelocytes, and promyelocytes. Blood smears from CBCs yielding IG's will be scanned manually for concordance. If this scan disagrees with the automated IG or if promyelocytes are noted, a manual differential will be performed. Fartun Gran Abs 0.04 0.00 - 0.04 x10(3)/[facility] Blood specimen (specimen) 05/10/2016 8:52 AM EDT 05/10/2016 9:15 AM EDT Narrative Resulting Agency Comment Spec In Lab Freddy Mejias MD HEMATOLOGY ORDERABLE S [facility] [place] [address] * (ABNORMAL) Hemogram (05/10/2016 8:52 AM EDT) WBC 11.2(H) 4.0 - 9.5 x10(3)/[facility] RBC 4.44 4.00 - 5.21 x10(6)/[facility] Hemoglobin 14.0 11.7 - 15.5 gm/dL [facility] Hematocrit 43.0 35.7 - 45.8 % [facility] MCV 96.8(H) 82.6 - 94.4 [facility] MCH 31.5 27.1 - 32.0 pg [facility] MCHC 32.6 31.7 - 35.0 gm/dL [facility] Platelets 232 145 - 357 x10(3)/[facility] RDWSD 46.5(H) 37.0 - 46.0 [facility] RDWCV 13.0 11.5 - 14.1 % [facility] MPV 10.2 7.6 - 12.9 [facility] nRBC % Auto 0.0 % [facility] nRBC Abs Auto 0.000 0.000 - 0.000 x10(3)/[facility] Blood specimen (specimen) 05/10/2016 8:52 AM EDT 05/10/2016 9:15 AM EDT Narrative Resulting Agency Comment Spec In Lab Freddy Mejias MD HEMATOLOGY ORDERABLE S [facility] [place] [address] * EKG 12 Lead (05/10/2016 7:53 AM EDT) Ventricular rate 50 BPM MUSE SYSTEM Atrial Rate 50 BPM MUSE SYSTEM P-R Interval 150 ms MUSE SYSTEM QRS Duration 86 ms MUSE SYSTEM Q-T Interval 438 ms MUSE SYSTEM QTC Calculated (Bezet) 399 ms MUSE SYSTEM Calculated P [place]ham 55 degrees MUSE SYSTEM Calculated R [place] 61 degrees MUSE SYSTEM Calculated T [place] 36 degrees MUSE SYSTEM INTERPRETATION Sinus bradycardia Low voltage QRS Borderline ECG When compared with ECG of 10-MAY-2013 08:23, Nonspecific T wave abnormality no longer evident in Anterolateral leads Confirmed by MD ASPEN, EDGEORGINA ([id number]) on 05/10/2016 12:03:03 PM MUSE SYSTEM 05/10/2016 7:53 AM EDT 05/10/2016 12:03 PM EDT Freddy Mejias MD ECG ORDERABLES MUSE SYSTEM * Scan Doc: Lab (05/03/2016) Historical Provider MEDIA MGR SCAN EX T ORDR/RSLT documented in this encounter Visit Diagnoses Diagnosis Chest pain, unspecified type documented in this encounter Care Teams Peeler Operator Relationship Specialty Start Date End Date Aman Larwence APRN [address] [place] [address] PCP - General 06/16/10 06/27/18 documented as of this encounter
--- OUTSIDE RECORDS SUMMARY | 2024-02-22 00:55 | XMS_ITS | Encounter Summary ---
Author Organization [facility] [place] [address] Care Team Providers Care Furnace Operator Name Role Phone Aman Lawrence APRN Primary Care Provider [phone] Reason for Visit * Reason Onset Date Comments Medication Refill 03/24/2018 Encounter Details Date Type Department Care Team (Late st Contact Info) Description 03/24/2018 Refill Cardiology at [address] [address] Freddy Mejias MD [facility] [place] [address] Medication Refill Social History Tobacco Use Types [...] on filedocumented in this encounter Care Teams Furnace Operator Relationship Specialty Start Date End Date Aman Lawrence APR[place] [address] PCP - General 06/16/10 06/27/18 documented as of this encounter
--- OUTSIDE RECORDS SUMMARY | 2024-02-22 00:55 | XMS_ITS | Encounter Summary ---
Author Organization [facility] [address] Care Team Providers Care Boat Builder And Repairer Name Role Phone Aman Lawrence APRN Primary Care Provider [phone] Reason for Visit * Reason Comments Chest Pain Coronary Artery Disease Encounter Details Date Type Department Care Team (Latest Contact Info) Description 06/14/2016 9:00 AM EST Office Visit Cardiology at [address] [address] Freddy Mejias MD [facility] [place] [address] Atherosclerosis of [place] coronary artery of [place] heart without angina pectoris; History of cigarette smoking Social History Tobacco Use Types Packs/Day Years Used Date Smoking Tobacco: Every Day Cigarettes 1 45 Smokeless Tobacco: Never Tobacco Cessation:Ready to Q uit: No; Counseling Given: No Alcohol Use Standard Drinks/Week Comments No 0 (1 standard drink = 0.6 oz pur e alcohol) Sex and Gender Information Value Date Recorded Sex Assigned at Not on file Gender Identity Not on file Sexual Orientation Not on file documented as of this encounter Last Filed Vital Signs Vital Sign Reading Time Taken Comments Blood Pressure 114/72 06/14/2016 8:50 AM EST Pulse 50 06/14/2016 8:50 AM EST Temperature - - Respiratory Rate 18 06/14/2016 8:50 AM EST Oxygen Saturation 98% 06/14/2016 8:50 AM EST on room air Inhaled Oxygen Concentration - - Weight 107 kg (236 lb) 06/14/2016 8:50 AM EST wi th heavy jacket Height - - Body Mass Index 40.79 05/24/2016 8:35 AM EDT documented in this encounter Patient Instructions * Patient Instructions* Freddy Mejias MD - 06/14/2016 9:00 AM EST We are going to increase your Isosorbide Mononitrate (Imdur) from 30 mg once a day to 60 mg once a day. Continue with your other medications. STOP SMOKING. I will see you back in 3 months. documented in this encounter Progress Notes * Freddy Mejias MD - 06/14/2016 9:00 AM EST SUBJECTIVE: 54 year old woman with known CAD s/p recent stenting of her LAD. Her cardiac catheterization showed a 90% stenosis of the proximal LAD and a 70% stenosis of the mid LAD. She received ALF x 2. EF was 60% by Echo. Last seen by me 05/10/16 for typical anginal pain. Started on long acting nitrates and ACEI increased to improve BP control. Patient Active Problem List Diagnosis ??? Osteoporosis DEXA done at [facility] on 10/29/15: osteoporosis at the left hip [...] GI ENDOSCOPY performed by DEE WRIGHT at [facility] ??? Abdomen surgery ??? Hysterectomy ??? Pro upper gi endoscopy, biopsy N/A 12/03/2015 EGD WITH BIOPSY performed by Ken Sanders MD at [facility] No family history on file. [...] Social history: , no children. Lives in [place]. 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 Smoking: Active smoker, 2ppd Alcohol: Prior alcoholic, in remission for 16 years Illicits: Denies Significant family history: + Family history of CAD Current Outpatient Prescriptions Medication Sig Dispense Refill ??? tiZANidine (ZANAFLEX) 4 mg Tablet Take 4 mg by mouth 3 times daily. ??? QUEtiapine (SEROQUEL) 50 mg Tablet Take 50 mg by mouth 2 times daily. ??? polyethylene glycol (MIRALAX) 17 gram/dose Powder Take 1 g by mouth daily. ??? omeprazole (PRILOSEC) 20 mg Capsule, Delayed Release(E.C.) Take 20 mg by mouth 2 times daily. ??? lamoTRIgine (LAMICTAL) 200 mg Tablet Take 200 mg by mouth daily. ??? alendronate (FOSAMAX) 70 mg Tablet Take 70 mg by mouth daily. ??? lisinopril (PRINIVIL;ZESTRIL) 40 mg Tablet Take 1 tablet by mouth daily. 30 tablet 11 ??? QUEtiapine (SEROQUEL) 25 mg tablet Take [...] Take 4 mg by mouth nightly. ??? traZODone (DESYREL) [...] complex vitamins (B COMPLEX-VITAMIN B12) tablet ??? loanplrctbir-ptce-akxudluu (COMPLETE MULTIVITAMIN) Tab tablet 1 Tablet(s), PO, Once daily ??? calcium citrate-vitamin D (CITRACAL+D) 315-200 mg-unit per tablet 2 Tablet(s), PO, Twice daily ??? ergocalciferol (VITAMIN D) 50,000 unit capsule [id number], PO, TWICE a week ??? isosorbide mononitrate (IMDUR) 60 mg Tablet Sustained Release 24 hr Take 1 tablet by mouth daily. 30 tablet 11 No current facility-administered medications for this visit. [...] Plans to try stopping smoking this summer.) (FROM 05/10/16: Exertional chest/should pain over the last 10 days. 4/10 in intensity. Always relieved within 5 minutes with 1 SL NTG. No associated symptoms. No symptoms at rest. Taking all her medications as prescribed. Still smoking 18 cigarettes/day. Weight up. Not exercising. Remains hypertensive.) TODAY 06/14/16: Exertional chest/shoulder pressure much improved. Occasional episode <1 per week. No shoulder pain. Using no SL NTG. Tolerating the medications. Having trouble with nightmares. Wonders if her prazosin can be increased. ROS: The patient denies: General: Unusual fatigue, [...] Healthy appearing, looking stated age Blood pressure 114/72, pulse 50, resp. rate 18, weight (!) 107 kg (236 lb), SpO2 98 %. HEENT: Normocephalic, anicteric, pupils equal, round, reactive to light and accomodation Chest: No palpation tenderness Lungs: Clear to auscultation and percussion Cardiac: Normal CVP, carotid up strokes full/not delayed, no carotid bruits, PMI discrete and not displaced, S1, S2 with physiologic splitting, no murmurs/rubs/gallops appreciated BELOW NOT EXAMINED Abdomen: Normal bowel sounds, soft, nontender, no [...] a copy of her recent blood work.) (FROM 05/10/16: Has the recurrence of typical angina [...] has been on her new medicationfor 1 week.) TODAY 06/14/16: NYHA Class II chronic stable angina. Much improved double product control. Will tryadvancing Imdur to 60 mg QD. Informed of possible side effects. If need be her prazosin can be advanced to help with her nightmares. If her BP falls and she is symptomatic with dizziness her lisinopril can be decreased. I once again offered support for smoking cessation. Time was spent in a face to face conversation with the patient (and accompanying family members, ifpresent) regarding my impressions and recommendations and providing counseling. All questions were answered to the patient's (and accompanying family's, if present) satisfaction. I will plan to see the patient back in follow-up in 3 months. documented in this encounter Plan of Treatment Not on file documented as of this encounter Visit Diagnoses Diagnosis Atherosclerosis of [place] coronary artery of [place] heart without angina pectoris History of cigarette smoking documented in this encounter Care Teams Boat Builder And Repairer Relationship Specialty Start Date End Date Aman Lawrence APRN [address] [place] [address] PCP - General 06/16/10 06/27/18 documented as of this encounter
--- OUTSIDE RECORDS SUMMARY | 2024-02-22 00:55 | XMS_ITS | Encounter Summary ---
Author Organization [facility] [place] [address] Care Team Providers Care Building Drafting Officer Name Role Phone Yisel Marroquin MD Primary Care Provider [phone] Encounter Details Date Type Department Care Team (Late st Contact Info) Description 03/28/2018 Abstract [facility] Conversion Results [address] [place] [address] Apd Conversion, Flowsheet Provider, Social History Tobacco [...] Sign Reading Time Taken Comments Blood Pressure 122/70 03/28/2018 2:11 PM EDT Sourced from [facility] Conversion Pulse - - Temperature - - Respiratory Rate - - Oxygen Saturation - - Inhaled Oxygen Concentration - - Weight 107.3 kg (236 lb 8.9 oz) 03/28/2018 2:11 PM EDT Sourced from [facility] Conversion Height - - Body Mass Index 40.88 08/22/2017 10:40 AM EST documented in this encounter Plan of Treatment Not on file documented as of this encounter Visit Diagnoses Not on filedocumented in this encounter Care Teams Building Drafting Officer Relationship Specialty Start Date End Date Yisel Marroquin MD [address] [place] [address] PCP - General 11/13/18 03/05/19 documented as of this encounter
--- OUTSIDE RECORDS SUMMARY | 2024-02-22 00:55 | XMS_ITS | Encounter Summary ---
Author Organization [facility] [place] [address] Care Team Providers Care Business Developer Name Role Phone Yisel Marroquin MD Primary Care Provider [phone] Encounter Details Date Type Department Care Team (Late st Contact Info) Description 07/14/2017 Abstract [facility] Conversion Results [address] [place] [id number] Apd Conversion, Flowsheet Provider, Social History Tobacco [...] Sign Reading Time Taken Comments Blood Pressure 120/76 07/14/2017 10:34 AM EST Sourced from [facility] Conversion Pulse - - Temperature - - Respiratory Rate - - Oxygen Saturation - - Inhaled Oxygen Concentration - - Weight - - Height - - Body Mass Index - - documented in this encounter Plan of Treatment Not on file documented as of this encounter Visit Diagnoses Not on filedocumented in this encounter Care Teams Business Developer Relationship Specialty Start Date End Date Yisel Marroquin MD [address] [place] [address] PCP - General 11/13/18 03/05/19 documented as of this encounter
--- OUTSIDE RECORDS SUMMARY | 2024-02-22 00:55 | XMS_ITS | Encounter Summary ---
Author Organization [facility] [address] Care Team Providers Care Property Management Specialist Name Role Phone Yisel Marroquin MD Primary Care Provider [phone] Encounter Details Date Type Department Care Team (Late st Contact Info) Description 01/04/2018 Orders Only Radiology and Cardiology Results [address] [place] [id number] Apd Conversion, Results Provider, Social History Tobacco [...] Comments LIPID PANEL (REFLEX DIRECT LDL) Routine 01/04/2018 documented in this encounter Results * (ABNORMAL) Lipid Panel (01/04/2018) Chol/HDL Ratio 3.4(Exter nal Lab) 3.2 - 4.4 [facility] CONVERSION VLDL 30.8(Exte rnal Lab) [facility] CONVERSION LDL Cholesterol 63(Vb Net Developer al Lab) [facility] CONVERSION HDL 40(Vb Net Developer al Lab) 40 - 60 [facility] CONVERSION Triglycerides 154(ExtH) 30 - 150 [facility] CONVERSION Chol, Total 134(Exter nal Lab) 50 - 200 [facility] CONVERSION 01/04/2018 Results Provider Apd Conversion MD JASON ESTRELLA ORDERABLES [facility] CONVERSION documented in this encounter Visit Diagnoses Not on filedocumented in this encounter Care Teams Property Management Specialist Relationship Specialty Start Date End Date Yisel Marroquin MD [address] [place] [address] PCP - General 11/13/18 03/05/19 documented as of this encounter
--- OUTSIDE RECORDS SUMMARY | 2024-02-22 00:55 | XMS_ITS | Encounter Summary ---
[place] [address] Care Team Providers Care Global Security Architect Name Role Phone Yisel Marroquin MD Primary Care Provider [phone] Encounter Details Date Type Department Care Team (Late st Contact Info) Description 02/07/2017 Orders Only Radiology and Cardiology Results [address] [place] [phone] Apd Conversion, Results Provider, Social History Tobacco [...] Procedure Name Priority Date/Time Associated Diagnosis Comments HEMOGLOBIN A1C Routine 02/07/2017 documented in this encounter Results * (ABNORMAL) Hemoglobin A1c (02/07/2017) Est Avg Gluc 134.1(ExtH ) 82.5 - 116.9 [facility] CONVERSION Hemoglobin A1C 6.3(ExtH) 4.5 - 6.2 [facility] CONVERSION 02/07/2017 Results Provider Apd Conversion MD JASON ESTRELLA ORDERABLES [facility] CONVERSION documented in this encounter Visit Diagnoses Not on filedocumented in this encounter Care Teams Global Security Architect Relationship Specialty Start Date End Date Yisel Marroquin MD [address] [place] [address] PCP - General 11/13/18 03/05/19 documented as of this encounter
--- OUTSIDE RECORDS SUMMARY | 2024-02-22 00:55 | XMS_ITS | Encounter Summary ---
Author Organization [facility] [place] [address] Care Team Providers Care Customer Consultant Name Role Phone Yisel Marroquin MD Primary Care Provider [phone] Encounter Details Date Type Department Care Team (Late st Contact Info) Description 07/01/2016 Abstract [facility] Conversion Results [address] [place] [address] Apd Conversion, Flowsheet Provider, Social History Tobacco [...] Sign Reading Time Taken Comments Blood Pressure 120/82 07/01/2016 10:02 AM EST Sourced from [facility] Conversion Pulse - - Temperature - - Respiratory Rate - - Oxygen Saturation - - Inhaled Oxygen Concentration - - Weight 104.5 kg (230 lb 6.1 oz) 07/01/2016 10:02 AM EST Sourced from [facility] Conversion Height - - Body Mass Index 39.82 05/24/2016 8:35 AM EDT documented in this encounter Plan of Treatment Not on file documented as of this encounter Visit Diagnoses Not on filedocumented in this encounter Care Teams Customer Consultant Relationship Specialty Start Date End Date Yisel Marroquin MD [address] [place] [id number] PCP - General 11/13/18 03/05/19 documented as of this encounter
--- OUTSIDE RECORDS SUMMARY | 2024-02-22 00:55 | XMS_ITS | Encounter Summary ---
Author Organization [facility] [place] [address] Care Team Providers Care Small Electric Engine Technician Name Role Phone Yisel Marroquin MD Primary Care Provider [phone] Encounter Details Date Type Department Care Team (Late st Contact Info) Description 03/29/2017 Abstract [facility] Conversion Results [address] [place] [address] Apd Conversion, Flowsheet Provider, Social History Tobacco [...] Reading Time Taken Comments Blood Pressure 126/70 03/29/2017 10:29 AM EDT Sourced from [facility] Conversion Pulse - - Temperature - - Respiratory Rate - - Oxygen Saturation - - Inhaled Oxygen Concentration - - Weight 100 kg (220 lb 7.4 oz) 03/29/2017 10:29 AM EDT Sourced from [facility] Conversion Height - - Body Mass Index 37.84 12/13/2016 10:08 AM EDT documented in this encounter Plan of Treatment Not on file documented as of this encounter Visit Diagnoses Not on filedocumented in this encounter Care Teams Small Electric Engine Technician Relationship Specialty Start Date End Date Yisel Marroquin MD [address] [id number] PCP - General 11/13/18 03/05/19 documented as of this encounter
--- OUTSIDE RECORDS SUMMARY | 2024-02-22 00:55 | XMS_ITS | Encounter Summary ---
Author Organization [facility] [place] [address] Care Team Providers Care Window Shade Installer Name Role Phone Yisel Marroquin MD Primary Care Provider [phone] Encounter Details Date Type Department Care Team (Late st Contact Info) Description 09/28/2016 Abstract [facility] Conversion Results [address] [place] [address] Apd Conversion, Flowsheet Provider, Social History Tobacco [...] Sign Reading Time Taken Comments Blood Pressure 160/80 09/28/2016 7:53 AM EST Sourced from [facility] Conversion Pulse - - Temperature - - Respiratory Rate - - Oxygen Saturation - - Inhaled Oxygen Concentration - - Weight 104.2 kg (229 lb 11.5 oz) 09/28/2016 7:53 AM EST Sourced from [facility] Conversion Height - - Body Mass Index 39.7 05/24/2016 8:35 AM EDT documented in this encounter Plan of Treatment Not on file documented as of this encounter Visit Diagnoses Not on filedocumented in this encounter Care Teams Window Shade Installer Relationship Specialty Start Date End Date Yisel Marroquin MD [address] [id number] PCP - General 11/13/18 03/05/19 documented as of this encounter
--- OUTSIDE RECORDS SUMMARY | 2024-02-22 00:55 | XMS_ITS | Encounter Summary ---
[place] [address] Care Team Providers Care Security Delivery Specialist Name Role Phone Yisel Marroquin MD Primary Care Provider [phone] Encounter Details Date Type Department Care Team (Late st Contact Info) Description 09/20/2016 Orders Only Radiology and Cardiology Results [address] [place] [phone] Apd Conversion, Results Provider, Social History Tobacco [...] Date/Time Associated Diagnosis Comments HEMOGLOBIN A1C Routine 09/20/2016 documented in this encounter Results * (ABNORMAL) Hemoglobin A1c (09/20/2016) Est Avg Gluc 119.8(ExtH ) 82.5 - 116.9 [facility] CONVERSION Hemoglobin A1C 5.8(Education Department Chair al Lab) 4.5 - 6.2 [facility] CONVERSION 09/20/2016 Results Provider Apd Conversion MD JASON ESTRELLA ORDERABLES [facility] CONVERSION documented in this encounter Visit Diagnoses Not on filedocumented in this encounter Care Teams Security Delivery Specialist Relationship Specialty Start Date End Date Yisel Marroquin MD [address] [place] [address] PCP - General 11/13/18 03/05/19 documented as of this encounter
--- OUTSIDE RECORDS SUMMARY | 2024-02-22 00:55 | XMS_ITS | Encounter Summary ---
[place] [address] Care Team Providers Care Pill Machine Operator Name Role Phone Aman Lawrence APRN Primary Care Provider [phone] Reason for Visit * Reason Onset Date Comments Follow-up 12/03/2016 Encounter Details Date Type Department Care Team (Late st Contact Info) Description 12/03/2016 Telephone [place] [phone] Sidra Del Toro, ALFALFA DEHYDRATOR OPERATOR [facility] [place] [address] Follow-up Social History Tobacco Use Types Packs/Day Years [...] Telephone Encounter - Sidra Del Toro - 12/03/2016 5:30 PM EDT Bariatric Surgery Program I contacted Jeannie post her recent visit to follow up on her abdominal pain. She has discontinued aldondronate and meloxicam since her last visit. She reports decrease in intensity of pain. She was advised that we will discuss a plan of care at our upcoming team meeting documented in this encounter Plan of Treatment Not on file documented as of this encounter Visit Diagnoses Not on filedocumented in this encounter Care Teams Pill Machine Operator Relationship Specialty Start Date End Date Aman Lawrence APRN [address] [place] [address] PCP - General 06/16/10 06/27/18 documented as of this encounter
--- OUTSIDE RECORDS SUMMARY | 2024-02-22 00:55 | XMS_ITS | Encounter Summary ---
Author Organization [facility] [place] [address] Care Team Providers Care Roll Tube Setter Name Role Phone Aman Lawrence APRN Primary Care Provider [phone] Encounter Details Date Type Department Care Team (Latest Contact Info) Description 12/09/2016 Multidisciplinary Ca re Committee [place] [address] Sidra Del Toro APRN [facility] [place] [address] Social History Tobacco Use Types Packs/Day Years [...] Progress Notes * Sidra Del Toro - 12/09/2016 7:41 AM EDT BARIATRIC SURGERY PROGRAM SURGICAL TEAM CASE REVIEW Jeannie Rico is a 56 y.o. year-old female. Her primary care physician is Aman Lawrence APRN: Bariatric Surgery Program introductory meeting attendance: Evaluation by a member of the [facility] Bariatric Surgery Program previously: Vivi Del Toro/ Jing Darden Case presentation by: Dr Wright Staff present at today's meeting: Kasia Wright MD, Ditch Rider, Skinny Gomez MD, Meena Pena MD, Tamar Guerra, MS RD, Sidra Del Toro APRN, Niecy Darden RDN, Gina Pérez, PhD, Meena Armijo MD Reason for presentation: review [facility] ED visit for RUQ abdominal pain. Question further testing needed Patient Active Problem List Diagnosis Code ??? Cervicalgia M54.2 ??? Chronic pain G89.29 ??? Lumbago M54.5 ??? CAD S/P percutaneous coronary angioplasty I25.10, Z98.61 ??? Hypertension I10 ??? Smokes cigarettes F17.210 ??? Hypothyroidism E03.9 ??? GERD (gastroesophageal reflux disease) K21.9 ??? Schizophrenia F20.9 ??? Anxiety F41.9 ??? Depression F32.9 ??? Post traumatic stress disorder (PTSD) F43.10 ??? Hidradenitis suppurativa L73.2 ??? Obesity, S/P remote gastric bypass in 1995, prior VBG E66.9 ??? Osteoporosis M81.0 Past Surgical History: Procedure Laterality Date ??? [...] BIOPSY performed by Ken Sanders MD at [facility] ??? UPPER GI ENDOSCOPY, EXAM 12/04/2010 UPPER GI ENDOSCOPY performed by KASIA WRIGHT at [facility] Plan of care: no further testing indicated, pain is attributed to being musculoskeletal in nature. documented in this encounter Plan of Treatment Not on file documented as of this encounter Visit Diagnoses Not on filedocumented in this encounter Care Teams Roll Tube Setter Relationship Specialty Start Date End Date Aman Lawrence APRN [address] [place] [address] PCP - General 06/16/10 06/27/18 documented as of this encounter
--- OUTSIDE RECORDS SUMMARY | 2024-02-22 00:55 | XMS_ITS | Encounter Summary ---
Author Organization [facility] [place] [address] Care Team Providers Care Gettering Filament Machine Operator Name Role Phone Yisel Marroquin MD Primary Care Provider [phone] Encounter Details Date Type Department Care Team (Late st Contact Info) Description 10/12/2016 Abstract [facility] Conversion Results [address] [place] [phone] Apd Conversion, Flowsheet Provider, Social History Tobacco [...] Sign Reading Time Taken Comments Blood Pressure 122/82 10/12/2016 12:51 PM EDT Sourced from [facility] Conversion Pulse - - Temperature - - Respiratory Rate - - Oxygen Saturation - - Inhaled Oxygen Concentration - - Weight - - Height - - Body Mass Index - - documented in this encounter Plan of Treatment Not on file documented as of this encounter Visit Diagnoses Not on filedocumented in this encounter Care Teams Gettering Filament Machine Operator Relationship Specialty Start Date End Date Yisel Marroquin MD [address] [place] [address] PCP - General 11/13/18 03/05/19 documented as of this encounter
--- OUTSIDE RECORDS SUMMARY | 2024-02-22 00:55 | XMS_ITS | Encounter Summary ---
Author [place] [address] Care Team Providers Care Recycling Collections Driver Name Role Phone Yisel Marroquin MD Primary Care Provider [phone] Encounter Details Date Type Department Care Team (Late st Contact Info) Description 04/28/2016 Orders Only Radiology and Cardiology Results [address] [place] [phone] Apd Conversion, Results Provider, Social History Tobacco [...] Procedure Name Priority Date/Time Associated Diagnosis Comments TSH Routine 04/28/2016 documented in this encounter Results * (ABNORMAL) TSH (04/28/2016) TSH 1.196(Exte rnal Lab) 0.358 - 3.740 [facility] CONVERSION 04/28/2016 Results Provider Apd Conversion MD JASON ESTRELLA ORDERABLES [facility] CONVERSION documented in this encounter Visit Diagnoses Not on filedocumented in this encounter Care Teams Recycling Collections Driver Relationship Specialty Start Date End Date Yisel Marroquin MD [address] [place] [address] PCP - General 11/13/18 03/05/19 documented as of this encounter
--- OUTSIDE RECORDS SUMMARY | 2024-02-22 00:55 | XMS_ITS | Encounter Summary ---
Author Organization [facility] Address [facility] [place] [address] Care Team Providers Care Regulatory Law Specialist Name Role Phone Yisel Marroquin MD Primary Care Provider [phone] Encounter Details Date Type Department Care Team (Late st Contact Info) Description 05/24/2016 Abstract [facility] Conversion Results [address] [place] [address] Apd Conversion, Flowsheet Provider, Social History Tobacco [...] Reading Time Taken Comments Blood Pressure 128/74 05/24/2016 8:35 AM EDT Sourced from [facility] Conversion Pulse - - Temperature - - Respiratory Rate - - Oxygen Saturation - - Inhaled Oxygen Concentration - - Weight 104.5 kg (230 lb 6.1 oz) 05/24/2016 8:35 AM EDT Sourced from [facility] Conversion Height 162 cm (5' 3.78) 05/24/2016 8:3 5 AM EDT Sourced from [facility] Conversion Body Mass Index 39.82 05/24/2016 8:35 AM EDT documented in this encounter Plan of Treatment Not on file documented as of this encounter Visit Diagnoses Not on filedocumented in this encounter Care Teams Regulatory Law Specialist Relationship Specialty Start Date End Date Yisel Marroquin MD [address] [place] [address] PCP - General 11/13/18 03/05/19 documented as of this encounter
--- OUTSIDE RECORDS SUMMARY | 2024-02-22 00:55 | XMS_ITS | Encounter Summary ---
Author Organization [facility] [place] [address] Care Team Providers Care Patient Office Rep Name Role Phone Aman Lawrence APRN Primary Care Provider [phone] Encounter Details Date Type Department Care Team (Late st Contact Info) Description 12/03/2015 9:00 AM EDT - 12/03/2015 9:30 AM EDT Surgery [place] [id number] Ken Sanders MD [facility] [place] [address] EGD WITH BIOPSY (WRVU 2.39) Social History Tobacco Use Types [...] Sign Reading Time Taken Comments Blood Pressure 102/65 12/03/2015 8:00 AM EDT Pulse 54 12/03/2015 8:00 AM EDT Temperature - - Respiratory Rate 16 12/03/2015 8:00 AM EDT Oxygen Saturation 97% 12/03/2015 8:00 AM EDT Inhaled Oxygen Concentration - - Weight 105.7 kg (233 lb) 12/03/2015 7:59 AM EDT Height 162.6 cm (5' 4) 12/03/2015 7:59 AM EDT Body Mass Index 39.99 12/03/2015 7:59 AM EDT documented in this encounter Discharge Instructions * Discharge Instructions* Karl Palma RN - 12/03/2015 8:43 AM EDT UPPER GI ENDOSCOPY WHAT TO EXPECT AFTER THE PROCEDURE After the test you may feel a little more gassy or bloated than usual, this is normal. ACTIVITY Because of the sedation that you received Your judgement and reaction time are affected ?? Go home and rest quietly for the remainder of the day. You may resume your normal activities tomorrow. ?? Change from one position to the next slowly. You may lose your balance unexpectedly Be careful on stairs, as you may be unsteady on your feet. FOR THE NEXT 24 HRS ?? DO NOT DRIVE OR OPERATE ANY MACHINERY ?? DO NOT DRINK ALCOHOLIC BEVERAGES ?? DO NOT SIGN LEGAL DOCUMENTS ?? If you are a smoker: DO NOT SMOKE WHILE YOU ARE ALONE Diet ?? Start by eating small portions of foods that ordinarily will not upset your stomach. Be gentle with what you choose to start with. ?? Drink plenty of fluids ( unless otherwise told not to) Medications You may have a mild sore throat. Ice chips, popsicles, over the counter throat lozenges or spray may help numb your throat. This procedure should not cause a fever. IV SITE-- slight redness or tenderness is normal, you can use warm compresses if you get concerned.If the tenderness +/or redness increases or foul drainage and a red streak occurs, please contact your PCP immediately. WHEN SHOULD YOU CALL FOR HELP? Call 911 anytime you think that you need emergency care. For example, call if: You passed out (lost consciousness). You cough up blood. You vomit blood or what looks like coffee grounds. You pass maroon or very bloody stools. Call your healthcare provider or seek immediate medical attention if: You have trouble swallowing. You have belly pain. Your stools are black or tarlike or have streaks of blood. You are sick to your stomach or cannot keep fluids down. Watch closely for changes in your health, and be sure to contact your doctor IF Your throat still hurts after a day or two You do not get better as expected. Tuesday-Tuesday Same Day Endo [phone] 7a-8p Otherwise contact [phone] and ask to speak to the dietary aid acetone button paster Follow-up care is a ramírez part of your treatment and safety. Be sure to make and go to all appointments, and call your doctor if you are having problems. Instructions have been reviewed and patient expresses understanding * Attachments The following attachments cannot be sent through Care Everywhere. * EGD (UPPER ENDOSCOPY) : POST-OP (BOLIVIAN) documented in this encounter Medications at Time of Discharge Medication Sig Dispensed Refills Start Date End Date QUEtiapine (SEROQUEL) 25 mg tablet Take 50 mg by mouth as needed. 1-4 times per day 11/15/2018 HYDROcodone-acetaminoph en 5-325 mg per tablet Take 1 tablet by mouth every 4 hours as needed. 11/19/2016 promethazine (PHENERGAN) 25 mg tablet Take 25 mg by mouth 3 times daily. 02/07/2019 TAMSULOSIN HCL (TAMSULOSIN ORAL) Take by mouth daily. ibuprofen (ADVIL;MOTRIN) 600 mg tablet Take 600 mg by mouth every 6 hours as needed. 05/10/2016 simvastatin (ZOCOR) 40 mg tabletIndications:CAD (coronary artery disease) Take 1 tablet by mouth nightly. 90 tablet 3 08/02/2013 01/04/2019 OMEPRAZOLE MAGNESIUM ORAL Take 40 mg by mouth daily. 11/19/2016 metoprolol succinate (TOPROL-XL) 25 mg 24 hr tablet TAKE 1 TABLET BY MOUTH DAILY. 30 tablet 3 06/06/2013 02/07/2019 meloxicam (MOBIC) 7.5 mg tablet Take 7.5 mg by mouth 2 times daily. 09/19/2018 prazosin (MINIPRESS) 2 mg capsule Take 6 mg by mouth nightly. 06/01/2019 lamoTRIgine (LAMICTAL) 100 mg tablet Take 200 mg by mouth daily. 1 1/2 to 2 tablets at night 06/14/2016 traZODone (DESYREL) 150 mg Tablet Take 75 [...] mouth daily. 30 tablet 6 04/17/2013 06/01/2019 lisinopril (PRINIVIL;ZESTRIL) 20 mg tablet Take 1 tablet by mouth daily. 30 tablet 6 04/17/2013 05/10/2016 nitroGLYcerin (NITROSTAT) 0.[address] [...] tablet 50MCG, PO, Once daily 09/23/2010 06/01/2019 b complex vitamins (B COMPLEX-VITAMIN B12) tablet 09/23/2010 11/19/2016 kikxunzcigmw-nzlv-jnhnm als (COMPLETE MULTIVITAMIN) Tab tablet 1 Tablet(s), PO, Once daily 09/23/2010 11/19/2016 calcium citrate-vitamin D (CITRACAL+D) 315-200 mg-unit per tablet 2 Tablet(s), PO, Twice daily 09/23/2010 11/19/2016 ergocalciferol (VITAMIN D) 50,000 unit capsule [id number], PO, TWICE a week 09/23/2010 11/19/2016 documented as of this encounter H&P Notes * Ken Sanders MD - 12/03/2015 8:00 AM EDT Gastroenterology and Hepatology Pre-Procedure History and Physical Exam Procedure: EGD: Indication: epigastric pain dyspepsia s/p gastric bypass Patient Active Problem List Diagnosis Code ??? [...] gastric bypass in 1995, prior VBG E66.9 EXAM: HEENT: Airway examined, oropharynx clear Mallampati Score: II (soft palate, uvula, fauces visible) LUNGS: Clear to auscultation HEART: Regular rate and rhythm, normal S1, S2 ABDOMEN: Normal bowel sounds, soft, non tender, non distended, A/P Proceed with the planned endoscopic procedure. ASA 2 - Patient with mild systemic disease with no functional limitations Sedation Plan: anesthesia Risks and benefits of the procedure explained to the patient. Consent signed. documented in this encounter Plan of Treatment Not on file documented as of this encounter Procedures Procedure Name Priority Date/Time Associated Diagnosis Comments SURGICAL PATHOLOGY REPORT Routine 12/03/2015 8:39 AM EDT SPECIMEN TO PATHOLOGY Routine 12/03/2015 8:39 AM EDT SPECIMEN TO PATHOLOGY Routine 12/03/2015 8:39 AM EDT EGD WITH BIOPSY (WRVU 2.39) 12/03/2015 8:25 AM EDT ? ulcer, Heartburn UPPER GI ENDOSCOPY Routine 12/03/2015 8: 21 AM EDT documented in this encounter Results * Surgical Pathology Report (12/03/2015 8:39 AM EDT) FINAL DIAGNOSIS (AP) [id number] ? Location: 4T; EA11; A The signing pathologist has (i) examined the relevant preparation(s) for the specimen(s) and (ii) rendered or confirmed the diagnosis(es). . ?Surgical Pathology DIAGNOSIS A - Irregular Z line, ?? biopsy: - Squamocolumnar junctional mucosa (cardia type) with mild chronic inflammation. There is no evidence of intestinal metaplasia. B - Stomach, ??biopsy: - Body/fundic-type mucosa with parietal cell hyperplasia consistent with PPI effect. 12/03/15 AAY 12/05/15 Verified by: ? John Vigil MD ?Pathologist ?(Electronic Signature) The attending pathologist whose signature appears on this report has reviewed all diagnostic slides and has edited the gross and/or microscopic portion of the report in rendering the final pathologic diagnosis. CLINICAL INFORMATION Specimen Submitted: A - Bx of irregular z line B - Bx of stomach r/o h pylori Clinical History: Patient with dyspepsia status post gastric bypass Clinical Diagnosis: Same SPECIMEN PROCESSING A - Labeled/Fixative: BX of irregular Z line, formalin. Quantity/Size: Three, ranging from 0.3-0.5 cm. Tissue Description: ??Soft, pink tissues . Sections/Processi ng: (T1) B - Labeled/Fixative: BX of stomach, rule out H. Pylori, formalin. Quantity/Size: Four, ranging from 0.3-0.6 cm. Tissue Description: ??Soft, pink tissues . Sections/Processi ng: (T1) ??sns 12/05/2015 2:25 PM EDT [facility] GI Biopsy 12/03/2015 8:39 AM EDT 12/03/2015 8:39 AM EDT GI Biopsy 12/03/2015 8:39 AM EDT 12/03/2015 8:39 AM EDT Ken Sanders MD PATHOLOGY/CYTOLOGY O ALYSON Performing Organization Address [facility] [place] [address] * Specimen to Pathology (surgical or derm) (12/03/2015 8:39 AM EDT) AP Specimen 12/03/2015 8:39 AM EDT 12/03/2015 8:39 AM EDT Narrative [facility] - 12/03/2015 8:39 AM EDT Specimen requisition ordered. ??Separate Pathology report to follow Ken Sanders MD PATHOLOGY/CYTOLOGY Kate SHIELDS Performing Organization Address [facility] [place] [place] [address] * Specimen to Pathology (surgical or derm) (12/03/2015 8:39 AM EDT) AP Specimen 12/03/2015 8:39 AM EDT 12/03/2015 8:39 AM EDT Narrative [facility] - 12/03/2015 8:39 AM EDT Specimen requisition ordered. ??Separate Pathology report to follow Ken Sanders MD PATHOLOGY/CYTOLOGY O ALYSON Performing Organization Address [facility] [place] [place] [address] * UPPER GI ENDOSCOPY (12/03/2015 8:21 AM EDT) UPPER GI ENDOSCOPY [facility] Endoscopy Patient Name: Jeannie Carbino ? Procedure Date: 12/03/2015 8:21 AM ? Date of : 1960 ? Age: 55 ? Order #: [id number] ? Procedure: ? Upper GI endoscopy Indications: ? Epigastric abdominal pain, S/p gastri ? bypass. Sx have improved with ? modification of eating pattern Providers: ? Ken Sanders MD, Sadie Fontenot ? Karl Hernandez Referring : ?Aman Lawrence MD, Sidra Linares ? MD Alverto Medicines: ? Propofol per Anesthesia Complications: ? No immediate complications. Procedure: ? The procedure, indications, benefits, ? risks [...] the procedure well. ? Findings: ? The examined esophagus was normal. ? The Z-line was irregular and was found 38 cm from the ? incisors. Biopsies were taken with a cold forceps for ? histology. ? S/p gastric bypass The entire examined (gastric ? remnant) stomach was normal. Biopsies were taken with ? a cold forceps for Helicobacter pylori testing. ? Normal gastrojejunostomy ? The examined jejunum was normal for 20 cm. Small ? candycane Jejunal pouch normal ? Impression: ?- Normal esophagus. ? - Z-line irregular, 38 cm from the ? incisors. Biopsied. ? - Normal stomach. Biopsied. ? - Normal examined jejunum. ? Normal s/p gastric bypass anatomy Recommendation: ?- Await pathology results. ? Ken Sanders MD 12/03/2015 8:44 AM This report has been signed electronically. Number of Addenda: 0 Note Initiated On: 12/03/2015 8:21 AM PROVATION 12/03/2015 8:21 AM EDT Aman Lawrence APRN GENERAL SURGICAL ORDERABLES PROVATION documented in this encounter Visit Diagnoses Not on filedocumented in this encounter Active and Recently Administered Medications Times are shown in EDT. Continuous Medication Order 12/01/2015 12/02/2015 12/03/2015 lactated ringers infusion (CANCELED) 30 mL/hr, Intravenous, CONTINUOUS, Starting on Tue12/03/15 at 0815, Until Tue12/03/15 at 0852, Endoscopy (Day of Procedure) 0822 (New Bag - Prov ider: Dinesh Babin) documented in this encounter Care Teams Patient Office Rep Relationship Specialty Start Date End [place] [address] PCP - General 06/16/10 06/27/18 documented as of this encounter
--- OUTSIDE RECORDS SUMMARY | 2024-02-22 00:55 | XMS_ITS | Encounter Summary ---
[place] [address] Care Team Providers Care Brush Fabrication Supervisor Name Role Phone Aman Lawrence APRN Primary Care Provider [phone] Encounter Details Date Type Department Care Team (Late st Contact Info) Description 01/19/2017 Telephone [place] [address] Kenya Villanueva, RN Social History Tobacco Use Types Packs/Day [...] encounter Miscellaneous Notes * Telephone Encounter - Kenya Sanchez, RN - 01/19/2017 11:39 AM EDT I received a call from the [facility] pharmacy about Jeannie's calcium dose changes. I let them know that I have no documentation about any changes in Jeannie's calcium. Medication Calcium Citrate-Vitamin D3 315-250 mg-unit Tablet [[id number]] Calcium Citrate-Vitamin D3 315-250 mg-unit Tablet [[id number]] Order Details Dose: 2 tablet Route: Oral Frequency: 2 TIMES DAILY Dispense Quantity: 360 tablet Refills: 3 Fills Remaining: -- ?? Sig: Take 2 tablets by mouth 2 times daily. (2) tabs 2 times daily. ?? Written Date: 11/19/16 Expiration Date: -- Start Date: 11/19/16 End Date: 11/19/17 after 730 doses ?? Ordering Provider: Sidra Del Toro APRN ARSH #: [id number] Authorizing Provider: Sidra Del Toro APRN ARSH #: [id number] Pharmacy: [address] ARSH #: -- Pharmacy Comments: -- ?? Quantity Remaining: -- Quantity Filled: -- documented in this encounter Plan of Treatment Not on file documented as of this encounter Visit Diagnoses Not on filedocumented in this encounter Care Teams Brush Fabrication Supervisor Relationship Specialty Start Date End Date Aman Lawrence APRN [address] [place] [address] PCP - General 06/16/10 06/27/18 documented as of this encounter
--- OUTSIDE RECORDS SUMMARY | 2024-02-22 00:55 | XMS_ITS | Encounter Summary ---
Author Organization [facility] Address [facility] [place] [address] Care Team Providers Care Inclusion Specialist Name Role Phone Yisel Marroquin MD Primary Care Provider [phone] Encounter Details Date Type Department Care Team (Late st Contact Info) Description 04/28/2016 Orders Only Radiology and Cardiology Results [address] [place] [id number] Apd Conversion, Results Provider, Social History Tobacco [...] Date/Time Associated Diagnosis Comments HEMOGLOBIN A1C Routine 04/28/2016 documented in this encounter Results * (ABNORMAL) Hemoglobin A1c (04/28/2016) Est Avg Gluc 125.5(ExtH ) 82.5 - 116.9 KORI FLORES DAY CONVERSION Hemoglobin A1C 6.0(Articulation Officer al Lab) 4.5 - 6.2 KORI FLORES DAY CONVERSION 04/28/2016 Results Provider Apd Conversion MD JASON ESTRELLA ORDERABLES KORI GARCIA CONVERSION documented in this encounter Visit Diagnoses Not on filedocumented in this encounter Care Teams Inclusion Specialist Relationship Specialty Start Date End Date Yisel Marroquin MD [address] [place] [address] PCP - General 11/13/18 03/05/19 documented as of this encounter
--- OUTSIDE RECORDS SUMMARY | 2024-02-22 00:55 | XMS_ITS | Encounter Summary ---
[place] [address] Care Team Providers Care Ela Teacher Name Role Phone Aman Lawrence APRN Primary Care Provider [phone] Reason for Referral * Consultation (Routine) - Closed Specialty Diagnoses / Procedures Referred By Vanita dimas Referred To Contact Endocrinology Diagnoses Osteoporosis, unspecified osteoporosis type, unspecified pathological fracture presence Tobacco dependence Sidra Del Toro APRN [facility] [place] [address] [facility] [address] [place] [address] Referral ID Status Reason Start Date Expiration Date V isits Requested Visits Authorized [id number] Closed Specialty Service Requested 11/19/2016 11/19/2017 1 1 Reason for Visit * Reason Comments Follow-up Bariatric Surgery Pr ogram follow up Encounter Details Date Type Department Care Team (Late st Contact Info) Description 11/15/2016 9:00 AM EDT Office [place] [id number] Sidra Del Toro APRN [facility] [place] [address] Disorder of iron metabolism; Status post bariatric surgery; Intestinal malabsorption, unspecified type; Vitamin D deficiency; Osteoporosis, unspecified osteoporosis type, unspecified pathological fracture presence; Tobacco dependence Social History Tobacco Use Types Packs/Day Years [...] Sign Reading Time Taken Comments Blood Pressure 139/61 11/15/2016 8:58 AM EDT Pulse 46 11/15/2016 8:58 AM EDT Temperature - - Respiratory Rate - - Oxygen Saturation 99% 11/15/2016 8:58 AM EDT Inhaled Oxygen Concentration - - Weight 103.8 kg (228 lb 12.8 oz) 11/15/2016 8:58 AM EDT Height 160 cm (5' 3) 11/15/2016 8:58 AM EDT Body Mass Index 40.53 11/15/2016 8:58 AM EDT documented in this encounter Patient Instructions * Patient Instructions* Niecy Darden - 11/15/2016 9:00 AM EDT [facility] Admin coordinator Rhonda: [phone] Dietitian: [phone] Surgeons/ nurse practitioner: [phone] Nurse line: [phone] Congratulations on your plan to stop smoking!! Testing: Labwork: Today. Go to [facility], which is 1 flight below the General Surgery Clinic. Please note that you will always receive a letter with lab results and recommendations. Please readthis letter carefully and follow recommendations. The letter also contains information regarding your next lab draw. Next visit: 1 year routine visit, further visits to be determined Routine visits are done at 4.8,12, 18 and 24 months after surgery, and yearly thereafter. Please call [phone] if you do not receive an appointment by 3-4 weeks prior to the expected visit. Medications: 1. A prescription for calcium citrate will be sent to your pharmacy 2. fosamax is not recommended due to risk of ulcer- Sidra will contact Aman 3. Further recommendations pending labwork. Vitamins: The following vitamins are recommended: ??? Multivitamins with minerals twice daily- needs to be an under 50 multivitamin that contains iron. No senior multivitamins. (Or read the serving size if taking a Bariatric specific multivitamin such as procare). ??? Vitamin B12 500 mcg by mouth once daily ??? Calcium citrate 600 mg with Vitamin D 400 units twice daily (600 mg in AM and 600 mg in PM- 2 pills twice a day) (or 1 chewable twice a day) ??? Iron with Vitamin C, 50-66 mg once daily (take iron with vitamin C 250 mg to help with absorption) only if you have regular periods, iron deficiency or anemia. Nutrition recommendations: Increase protein intake, aim for 20 grams of protein per meal. Try Pure or Premier protein shakes for breakfast and choose high protein snacks such as 1/4 cup nuts or yogurt. Add beans or deli meat when having soup to help increase protein content. Continue to avoid chicken and other dry meats. - Your Daily Goals: ?? 1,000-1,200 calories per day (300 calories per meal, 100 calories per snack, 1-2 snacks per day) ?? 60 grams of protein per day (20 grams per meal) ?? 48-64 oz of non-caloric and hydrating fluids per day (6-8, 8 oz cups) ?? Do not drink with meals- pushes food through more quickly, can cause upset stomach Activity: ??? Aim for 30 minutes of exercise daily, 5 days a week of both cardio and strength training exercises. Continue being active with walking and doing weight exercises. Alcohol: should be used sparingly, no more than one drink per occasion. Alcohol is a source of empty calories and can cause ulcers and vitamin and mineral deficiencies. Alcohol is toxic to the liver and is absorbed more quickly after surgery, it stays in the system longer. Studies have noted that there is an increased risk of alcohol dependence after bariatric surgery. f non-prescribed drugs and treet drugs is unsafe Anti-inflammatory medications such as Advil, Aleve, Excedrin, Ibuprofen should be used sparingly after gastric bypass, since they increase the risk of ulcer. Call us: ??? If you have concerns. ??? If you have unexplained abdominal pain. ??? if you see blood in your stool or vomit blood ??? If you have prolonged vomiting Post Surgery Support Group: Our post surgery support group meets on the first Tuesday of every month from 1-2 PM at [facility]- no registration required Nutrition and Activity apps- Baritastic, My Fitness Pal, Lose It, My Plate Internet resources: www.[employer] wwwSoma Water www.[email or web address] [facility] facebook page: [email or web address] Books & Magazines: - Recipes for Life After Weight Loss Surgery by Suly Cruz - Shrink Yourself by Dr Juan Carlos Carlos - Eating Well - Cooking Light documented in this encounter Progress Notes * Sidra Del Toro - 11/15/2016 9:00 AM EDT Reason for visit: Follow [...] 23% B12 1588 PTH 47 D 44 Post op wt history: 222 pounds on 02/20/01, 238 pounds on 03/30/02, 242 pounds on 10/04/02, 255 pounds on 10/22/03, 263 pounds on 05/26/05, 222 pounds on 10/11/05 Date Evaluation Results 09/29/15 Primary care Epigastric pain 12/03/15 EGD Unremarkable, normal gastric bypass anatomy. Path: A - Irregular Z line, ?? biopsy: - Squamocolumnar junctional mucosa (cardia type) with mild chronic inflammation. ??There is no evidence of intestinal metaplasia. Stomach, ??biopsy: - Body/fundic-type mucosa with parietal cell hyperplasia consistent with PPI effect. 08/24/10 Ba swallow Although the initial images showed contrast filling a mildly dilated pouch, withtime of contrast was clearly seen within the standing rock fundus indicating a leak. The site of [...] a surgical candidate based on tobacco use never Colonoscopy ? Mammogram - Pap [facility] DEXA 11/07/02 DEXA normal Problem List ??? Pre-operative Class IV obesity BMI 51.8, S/P gastric bypass, question of staple line breakdown since 2010 ??? Hypertension: current treatment with lisinopril and metoprolol ??? Type 2 diabetes: no current treatment requirements ??? GERD: asymptomatic on omeprazole 20 mg daily CAD, S/P percutaneous coronary angioplasty: currently stable, remains on clopidogrel A. S/P hospitalization for [place], ALF placement x 2 to 90% stenosis of proximal 1 LAD and 60% stenosis of proximal 2 LAD on 04/16/13 ??? Musculoskeletal issues: : current treatment with meloxicam A. Cervicalgia B. lumbago ??? Chronic pain ??? Hypothyroidism ??? COPD ??? Tobacco dependence, started at age 11, highest use 2.5 PPD: She has a plan to stop smoking on 12/23. She is smoking 2 cartons a month. Brandon smokes. - At one point, she reports stopped for 8 months ??? Psychological issues: stable with regular counseling Luis , case jerri Howell in [place]. She finds self-hypnosis, drawing and meditation helpful, reports decreasing medication a. anxiety and panic disorder b. history of depression c. Borderline Personality d/o d. history of self mutilation (burning skin) e. PTSD f. Multiple psychiatric hospitalizations, last 2005 g. schizophrenia ? ? Polysubstance abuse in remission: reports no alcohol use in >20 years ??? History of bulimia: denies purging since 2005 ??? Nonepileptic seizures: non, controlled with self-hypnosis Past Surgical History Procedure Laterality Date ??? Open non-divided Genesis en Y gastric bypass (Dr. Trejo) 05/12/2000 ??? Open cholecystectomy ~1991 ??? Panniculectomy 08/23/2001 ??? CHIP/ BSO 1985 ? ? T &A ??? Complete dental extractions 1998 Allergies Allergen Reactions ??? Morphine Shortness Of Breath ??? Sumatriptan Hives ??? Oxycodone Other (See Comments) drunk feeling, dizzy ??? Oxycodone-Acetaminophen Other (See Comments) dizziness, feels drunk ??? Chantix [Varenicline] psychotic ??? Marijuana Other (See Comments) Becomes psychotic Medications 06/14/16 0902 Medication Sig Taking? ASCORBIC ACID, VITAMIN C, ORAL Take 1,000 mg by mouth daily. Yes cholecalciferol, Vitamin D3, 2,000 unit Capsule Take 1 capsule by mouth daily. Yes omeprazole (PRILOSEC) 20 mg Capsule, Delayed Release(E.C.) Take 20 mg by mouth 2 times daily. Yes lamoTRIgine (LAMICTAL) 200 mg Tablet Take 200 mg by mouth daily. Yes alendronate (FOSAMAX) 70 mg Tablet Take 70 mg by mouth daily. Yes isosorbide mononitrate (IMDUR) 60 mg Tablet Sustained Release 24 hr Take 1 tablet by mouth daily. Yes lisinopril (PRINIVIL;ZESTRIL) 40 mg Tablet Take 1 tablet by mouth daily. Yes metoprolol succinate (TOPROL-XL) 25 mg 24 hr tablet TAKE 1 TABLET BY MOUTH DAILY. Yes meloxicam (MOBIC) 7.5 mg tablet Take 7.5 mg by mouth 2 times daily. Yes albuterol (PROAIR HFA) 90 mcg/actuation inhaler Inhale 2 puffs into the lungs every 4 hours as needed. Use with spacer Yes ferrous sulfate 325 mg (65 mg iron) EC tablet Take 325 mg by mouth every other day. Yes aspirin 81 mg EC tablet Take 1 tablet by mouth daily. Yes clopidogrel (PLAVIX) 75 mg tablet Take 1 tablet by mouth daily. Yes methocarbamol (ROBAXIN) 500 mg tablet Take 500 mg by mouth 4 times daily. Yes fluticasone-salmeterol (ADVAIR DISKUS) 500-50 mcg/dose diskus inhaler 1 Disk(s), Inh, Twice daily Yes levothyroxine (SYNTHROID) 50 mcg tablet 50MCG, PO, Once daily Yes qmtyzranrwdd-xmma-vgwasirh (COMPLETE MULTIVITAMIN) Tab tablet 1 Tablet(s), PO, Once daily Yes tiZANidine (ZANAFLEX) 4 mg Tablet Take 4 mg by mouth 3 times daily. QUEtiapine (SEROQUEL) 50 mg Tablet Take 50 mg by mouth 2 times daily. polyethylene glycol (MIRALAX) 17 gram/dose Powder Take 1 g by mouth daily. QUEtiapine (SEROQUEL) 25 mg tablet Take 50 mg by mouth as needed. 1-4 times per day promethazine (PHENERGAN) 25 mg tablet Take 25 mg by mouth 3 times daily. TAMSULOSIN HCL (TAMSULOSIN ORAL) Take by mouth daily. simvastatin (ZOCOR) 40 mg tablet Take 1 tablet by mouth nightly. prazosin (MINIPRESS) 2 mg capsule Take 4 mg by mouth nightly. traZODone (DESYREL) 100 mg tablet Take 200 mg by mouth nightly. nitroGLYcerin (NITROSTAT) 0.[address] 1 tablet under the tongue every 5 minutes as needed for Chest pain. 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 She reports a 3 day episode of RUQ knife like pain, spasm radiating to her back. There is no nausea or vomiting or relationship to meals associated with the pain episodes, which she reports has had for years, but more frequent recently. When she has an episode, she lies down. She has 1-2 episodes a week. At [facility] a non-enhanced CT scanof the abdomen was done to rule out renal stones, which was negative for stones. Amylase and lipasewere unremarkable. CBC showed a mild elevation in WBC of 11.8 which is baseline for her. She was given toradol which she reports helped the pain. She was diagnosed with osteoporosis and is taking an oral bisphosphonate. She is also taking a daily NSAID for joint pain as well as clopidogrel. She reports that she plans to stop smoking in December She had an EGD at [facility] last November which was unremarkable Subjective. Patient concerns at today's visit: she presents for her annual visit. She has lost 10 pounds in thepast year. Protein intake remains low. She has occasional constipation which she attributes to eating cheese and inactivity, treated effectively with miralax Review of Systems (negative if left blank): Constitutional: [] fatigue [] pica Neurologic: [] paresthesias [] memory loss CV: [+] treatment for hypertension or taking antihypertensive medication [ ] treatment for hyperlipidemia Pulmonary: [] sleep apnea symptoms [ ] treated for KARINA GI: [] GERD, dysphagia [] dumping [] abdominal pain, hernia [] nausea/vomiting [] blood in stool [] chronic diarrhea/ constipation STAMP REDEMPTION CLERK: [] LMP: [] control [] menorrhagia [+] post-menopause Heme/Lymph: [] excessive bruising [] blood donor in past year Psychiatric [] mental health concerns Other: Exercise/activity level: as per RD note Employment/social: disabled/ Health-related habits: Tobacco: 2 cartons a week, rolled by pt Alcohol: none Dietary history: See dietitian note. Objective: General: 56 y.o. year-old female looks well. She is accompanied by her claims agent right of way Dorcas. Heart: RRR Lungs: CTA bilaterally without wheezing Abdomen: soft, non-tender. Abdominal scars well healed Extremities: no edema Vital signs: BP 139/61 (BP Location (NBP): Right arm, Patient Position: Sitting, BP Cuff Sizes: Large Adult (32-43 cm)) Pulse (!) 46 Ht 160 cm (5' 3) Wt (!) 103.8 kg (228 lb 12.8 oz) SpO2 99% BMI 40.53 kg/m2 Results for JEANNIE RICO ( ) Ref. Range 11/15/2016 10:25 Ferritin Latest Ref Range: 30 - 400 ng/mL 36 Folate Lvl Latest Ref Range: 4.8 - 24.2 ng/mL >20.0 Iron Latest Ref Range: 30 - 150 mcg/dL 88 TIBC Latest Ref Range: 250 - 450 mcg/dL 390 Iron Saturation Latest Ref Range: 20 - 50 % 23 Vitamin B-12 Latest Ref Range: 207 - 974 pg/mL 1588 (H) 25-OH Vit D Total Latest Ref Range: 30 - 100 ng/mL 44 Vit B1 Lvl WB Latest Ref Range: 70 - 180 nmol/L 233 (H) PTH Latest Ref Range: 15 - 65 pg/mL 47 Assessment: S/P remote gastric bypass , with loss of 42% of excess body weight. Currently taking alendronate and meloxicam in addition to clopidogrel and using nicotine, placing her at high risk for ulcer/ bleeding. Episodic RUQ pain of unknown etiology, not accompanied by GI symptoms. Polypharmacy Plan: ?? She was advised that aldendronate is not recommended for osteoporosis in patients post gastric bypass due to ulcer/ bleeding risk. Discussed with PCP office, will refer to Endocrine for IV biphosphonate therapy ?? Recommend discussion with PCP regarding meloxicam use, again places her at risk for ulcer. All NSAIDs are contraindicated post surgery. Continue omeprazole 20 mg daily indefinitely ?? She will contact me in 2 weeks to let me know how she is feeling after discontinuing aldendronate. Will review plan of care at next Team meeting ?? Recommend that her primary care team consider pharmacology consult if not previously done given multiple medications and concern for bleeding risk with current regimen ?? Next BSP visit: 1 year ?? Next labwork: As per PCP, 1 year with BSP follow up ?? Additional vitamin and mineral supplement recommendations (*in addition to usual post surgery supplements, as noted below): increase multivitamin with iron to BID per guidelines, start calcium citrate 500-600 mg with vitamin D BID per guidelines, continue vitamin D3 2000 units a day, continue ferrous sulfate 3 x a week (may be able to discontinue after starting multivitamin with iron BID) Rxs provided for calcium citrate, multivitamins and vitamin D3 2,000 units QD x 1 year ?? dietary/ exercise recommendations per RD ?? Advised to call if develops unexplained abdominal pain, concerns or questions ?? provided with a May 2013 edition of One Year [employer] Beyond bariatric surgery, a resource regarding supplements, diet, recommendations for patients > 1 year post-operatively She was provided with a Bariatric Program Summary report which included the above recommendations, as well as information on vitamin and mineral supplementation, fluids, exercise and support group meetings. She has had an opportunity to have all her questions answered and is in agreement with the plan of care. Jeannie was advised of lab results via mail. RECOMMENDED BARIATRIC SURGERY PROGRAM POSTOPERATIVE FOLLOW-UP: Follow [...] PTH and comprehensive metabolic profile at 4, 12, 18 and 24 months, and yearly.Prealbumin is done at 4 and 12 months and PRN. If labwork is done by the primary home care manager rn: please send a copy to the Bariatric Surgery Program, General Surgery Clinic, [facility], attention Sidra Del Toro APRN. Questions regarding [facility] Bariatric Surgery Program patients: please call Jorge Del Toro APRN at [phone] or [phone] beeper [phone]. E-mail: [email or web address] * Niecy Darden - 11/15/2016 9:00 AM EDT Bariatric Surgery Program Nutrition Progress Note Encounter Type: follow up SUBJECTIVE: Topics Discussed/Patient Concerns: ?? Pain attacks on her side, was constant pain but not it's not. ?? Still having trouble with meat but has been drinking protein shakes. She can tolerate deli meat and has been trying more vegetables. She likes zucchini, cabbage, and spinach. She has been avoidingbacon and soda. ?? She has increased her activity with walking and has been losing weight. OBJECTIVE: Type of Surgery: non-divided RNY gastric bypass on 05/12/00 Weight History: Date WT HT 61 BMI Comments 06/08/99 299 %EWL 51.8 Pre-op weight 08/13/10 248 30 42.5 11/11/10 237 37.5 40.7 07/04/13 236 37.5 40.5 13 Years post-op 10/23/15 238 36.3% 41.6 15.5 years post-op 11/15/16 228# 42.3% 40.5 16.5 years post-op Social History: Has a supportive therapeutic case manager. Vitamin/Mineral Supplements (reported by patient): Supplement Type Brand/Form Dosage/Amount Frequency Comments Multivitamin pill 1 daily Calcium none Wants rx Vitamin B12 pill 1,000 mcg 3x/week Iron Ferrous sulfate 325 mg 3x/week Vitamin D3 pill 2,000 IU daily Vitamin C pill 1,000 mg daily Tracking Intake: none Daily Oral Intake: Breakfast Protein shake- organic sf shake (10 gm protein) Or oatmeal with milk Or in the summer corn chex with low fat milk AM Snack Fresh or canned fruit Lunch Whole wheat or spinach wrap with tomato, spinach, 1 slice deli ham or chicken, and sometimes 1 slice cheese PM Snack Sometimes Alevism granola bar Dinner Soup- vegetable, chicken and rice, or tomato Or grilled zuchinni with ham roll up Or 1 egg and 1 slice toast HS Snack Sometimes fruit or tomatoes and carrots Protein/ grams per day: 30-40 grams Calories per day: 8995-1073 kcals Hydrating fluids- oz/ day: 62-68 oz water and 8 oz decaf coffee with sweet n low and 2% milk and once a week pineapple juice Soda: none ETOH: none Caffeine: 8 oz coffee once a week Sweets: 1-2x/ week frozen yogurt or chocolate chip cookies Meals per day: 3/ day ?? Feels full/satisfied after eating: yes ?? Feels hungry []never [x]sometimes []most of the time [] always ?? Drinks with meals: none ?? Practices portion control: yes ?? Spends at least 20 minutes eating each meal: 15 minutes ?? Has had dumping syndrome: sweets and juices Foods/Symptoms: cramps and diarrhea ?? In the past month, pt has vomited/regurgitated: vomited once in the past 2 weeks, she tried to eat baked chicken. Food Allergies/Intolerances: meat and tomato products Exercise: Has been out walking everyday in nice weather for 20 minutes. She is also doing weights and exercises at home, 5 days per week. ASSESSMENT: Summary of Weight Loss: Patient's percent excess weight loss is 42.3% which is within the expected post- op bariatric surgery range. Weight down 10# x 1 year, which patient attributes to increase in activity. She still has trouble tolerating meat but has been getting protein from other sources, such as shakes and deli meat. She is not meeting her protein needs, recommend she increase her protein intake by consuming Pure or Premier protein shakes, beans, yogurt, and nuts. Encouraged patient to avoid dry meat. She is meeting her fluid needs. Compliant with supplements, although she is not taking calcium. Recommend patient start calcium citrate twice a day, she would like a prescription so the calcium will be added toher medication pack. She has a great exercise routine of walking and doing exercises in her home. NUTRITION INTERVENTION & MONITORING: ?? Provided support/encouragement and reinforced importance of meeting nutritional goals. ?? Reviewed nutrition and vitamin and mineral supplement recommendations (see patient instructions). ?? Written recommendations provided. Patient agreed with these and verbalized adequate understanding. ?? Evaluation by nurse practitioner today. ?? Handouts provided: Updated supplement card. documented in this encounter Plan of Treatment Scheduled Referrals Name Type Priority Associated Diagnoses Orde r Schedule Referral to Endocrinology Outpatient Referral Routine Osteoporosis, unspecified osteoporosis type, unspecified pathological fracture presence Tobacco dependence Ordered: 11/19/2016 documented as of this encounter Procedures Procedure Name Priority Date/Time Associated Diagnosis Comments PTH Routine 11/15/2016 10:25 AM EDT Status post bariatric surgery Intestinal malabsorption, unspecified type VITAMIN B1, WHOLE BLOOD Routine 11/15/2016 10:25 AM EDT Status post bariatric surgery Intestinal malabsorption, unspecified type IRON AND TIBC Routine 11/15/2016 10:25 AM EDT Disorder of iron metabolism Status post bariatric surgery Intestinal malabsorption, unspecified type VITAMIN D, 25-HYDROXY Routine 11/15/2016 10:25 AM EDT Status post bariatric surgery Intestinal malabsorption, unspecified type Vitamin D deficiency FOLATE, SERUM Routine 11/15/2016 10:25 AM EDT Status post bariatric surgery Intestinal malabsorption, unspecified type FERRITIN Routine 11/15/2016 10:25 AM EDT Disorder of iron metabolism Status post bariatric surgery Intestinal malabsorption, unspecified type VITAMIN B12 Routine 11/15/2016 10:25 AM EDT Status post bariatric surgery Intestinal malabsorption, unspecified type documented in this encounter Results * Folate, serum (11/15/2016 10:25 AM EDT) Folate Lvl >20.0 4.8 - 24.2 ng/mL [facility] Blood specimen (specimen) 11/15/2016 10:25 AM EDT 11/15/2016 10:36 AM EDT Narrative Resulting Agency Comment Spec In Lab Sidra Del Toro YOUTH AGENT CHEMISTRY ORDERAB LES [facility] [place] [place] [address] * (ABNORMAL) Vitamin B1, whole blood (11/15/2016 10:25 AM EDT) Vit B1 Lvl WB 233(H) 70 - 180 nmol/L [facility] Comment: ADDITIONAL INFORMATION This test was developed and its performance characteristics determined by [facility] in a manner consistent with CLIA requirements. This test has not been cleared or approved by the U.S. Food and Drug Administration. Test Performed by: [facility] - [address] [address] Blood specimen (specimen) 11/15/2016 10:25 AM EDT 11/15/2016 1:08 PM EDT Narrative Resulting Agency Comment Spec In Lab Sidra aKtarina Alverto YOUTH AGENT CHEMISTRY ORDERAB LES Performing Organization Address City/[facility]/ZIP Co de Phone Number [facility] [place] [place] [address] * PTH (11/15/2016 10:25 AM EDT) PTH 47 15 - 65 pg/mL [facility] Blood specimen (specimen) 11/15/2016 10:25 AM EDT 11/15/2016 10:36 AM EDT Narrative Resulting Agency Comment Spec In Lab Sidra Katarina Alverto YOUTH AGENT CHEMISTRY ORDERAB LES Performing Organization Address City/[facility]/ZIP Co de Phone Number [facility] [place] [address] * (ABNORMAL) Vitamin B12 (11/15/2016 10:25 AM EDT) Vitamin B-12 1,588(H) 207 - 974 pg/mL [facility] [facility] Blood specimen (specimen) 11/15/2016 10:25 AM EDT 11/15/2016 10:36 AM EDT Narrative Resulting Agency Comment Spec In Lab Sidra Dimas Alverto YOUTH AGENT CHEMISTRY ORDERAB LES Performing Organization Address City/[facility]/ZIP Co de Phone Number [facility] [place] [address] * Iron and TIBC (11/15/2016 10:25 AM EDT) Pathologist [facility] Iron 88 30 - 150 mcg/dL [facility] TIBC 390 250 - 450 mcg/dL [facility] Iron Saturation 23 20 - 50 % [facility] Blood specimen (specimen) 11/15/2016 10:25 AM EDT 11/15/2016 10:36 AM EDT Narrative Resulting Agency Comment Spec In Lab Sidra Katarina Alverto YOUTH AGENT CHEMISTRY ORDERAB LES [facility] [place] [place] [address] * Ferritin (11/15/2016 10:25 AM EDT) [facility] Ferritin 36 30 - 400 ng/mL [facility] Comment: Pediatric reference ranges not verified at [facility], interpret with caution. Reference ranges for females greater than 50 years of age approach values for men, i.e., 30-400 ng/mL. Blood specimen (specimen) 11/15/2016 10:25 AM EDT 11/15/2016 10:36 AM EDT Narrative Resulting Agency Comment Spec In Lab Sidra Del Toro APRN CHEMISTRY ORDERAB LES Performing Organization Address City/[facility]/ZIP Co de Phone Number [facility] [place] [place] [address] * Vitamin D, 25-Hydroxy (11/15/2016 10:25 AM EDT) [facility] 25-OH Vit D Total 44 30 - 100 ng/mL [facility] Comment: Deficient <10 ng/mL Insufficient 10 to 29 ng/mL Sufficient 30 to 100 ng/mL Potential Intoxication >100 ng/mL According to the [place] National Osteoporosis Foundation, Vitamin D concentrations >30 ng/mL are sufficient to protect bone health. ??The National Kidney Foundation has similarly stated that patients with Vitamin D concentrations <30ng/mL should be considered to be insufficient or deficient. http://[employer] [place].GERS/[facility]atl[facility]neyfoundation http://[employer]ent/DHMCVitD The [employer] i[employer] Vitamin D Immunoassay detects both 25-OH Vitamin D2 and 25-OH Vitamin D3, but only a total Vitamin D concentration is reported. Blood specimen (specimen) 11/15/2016 10:25 AM EDT 11/15/2016 1:13 PM EDT Narrative Resulting Agency Comment Spec In Lab Sidra Del Toro APRN CHEMISTRY ORDERAB LES [facility] [place] [place] [address] documented in this encounter Visit Diagnoses Diagnosis Disorder of iron metabolism Other disorders of iron metabolism Status post bariatric surgery Bariatric surgery status Intestinal malabsorption, unspecified type Vitamin D deficiency Unspecified vitamin D deficiency Osteoporosis, unspecified osteoporosis type, unspecified pathological fracture presence Tobacco dependence Tobacco use disorder documented in this encounter Care Teams Ela Teacher Relationship Specialty Start Date End Date Aman Lawrence APRN [address] [place] [address] PCP - General 06/16/10 06/27/18 documented as of this encounter
--- OUTSIDE RECORDS SUMMARY | 2024-02-22 00:55 | XMS_ITS | Encounter Summary ---
Author Organization [facility] [place] [address] Care Team Providers Care Band Saw Marker Name Role Phone Yisel Marroquin MD Primary Care Provider [phone] Encounter Details Date Type Department Care Team (Late st Contact Info) Description 02/14/2018 Abstract [place] Conversion Results [address] [place] [address] Apd Conversion, Flowsheet Provider, Social History Tobacco [...] on filedocumented in this encounter Care Teams Band Saw Marker Relationship Specialty Start Date End Date Yisel Marroquin MD [address] [place] [address] PCP - General 11/13/18 03/05/19 documented as of this encounter
--- OUTSIDE RECORDS SUMMARY | 2024-02-22 00:55 | XMS_ITS | Encounter Summary ---
Author Organization [facility] [place] [address] Care Team Providers Care Purification Director Name Role Phone Yisel Marroquin MD Primary Care Provider [phone] Encounter Details Date Type Department Care Team (Late st Contact Info) Description 01/13/2017 Abstract [place] Conversion Results [address] [place] [address] Apd Conversion, Flowsheet Provider, Social History Tobacco [...] Sign Reading Time Taken Comments Blood Pressure 144/90 01/13/2017 9:38 AM EDT Sourced from APD Conversion Pulse - - Temperature - - Respiratory Rate - - Oxygen Saturation - - Inhaled Oxygen Concentration - - Weight 103 kg (227 lb 1.2 oz) 01/13/2017 9:38 AM EDT Sourced from APD Conversion Height - - Body Mass Index 38.98 12/13/2016 10:08 AM EDT documented in this encounter Plan of Treatment Not on file documented as of this encounter Visit Diagnoses Not on filedocumented in this encounter Care Teams Purification Director Relationship Specialty Start Date End Date Yisel Marroquin MD [address] [id number] PCP - General 11/13/18 03/05/19 documented as of this encounter
--- OUTSIDE RECORDS SUMMARY | 2024-02-22 00:55 | XMS_ITS | Encounter Summary ---
Author Organization [facility] [place] [address] Care Team Providers Care Quenching Car Operator Name Role Phone Yisel Marroquin MD Primary Care Provider [phone] Encounter Details Date Type Department Care Team (Late st Contact Info) Description 08/03/2016 Abstract [place] Conversion Results [address] [place] [address] Apd Conversion, Flowsheet Provider, Social History Tobacco [...] Reading Time Taken Comments Blood Pressure 122/82 08/03/2016 9:43 AM EST Sourced from APD Conversion Pulse - - Temperature - - Respiratory Rate - - Oxygen Saturation - - Inhaled Oxygen Concentration - - Weight 103.6 kg (228 lb 6.3 oz) 08/03/2016 9:43 AM EST Sourced from APD Conversion Height - - Body Mass Index 39.48 05/24/2016 8:35 AM EDT documented in this encounter Plan of Treatment Not on file documented as of this encounter Visit Diagnoses Not on filedocumented in this encounter Care Teams Quenching Car Operator Relationship Specialty Start Date End Date Yisel Marroquin MD [address] [id number] PCP - General 11/13/18 03/05/19 documented as of this encounter
--- OUTSIDE RECORDS SUMMARY | 2024-02-22 00:55 | XMS_ITS | Encounter Summary ---
Author Organization [facility] Address One [facility] [place] [address] Care Team Providers Care Senior Hris Analyst Name Role Phone Yisel Marroquin MD Primary Care Provider Encounter Details Date Type Department Care Team (Late st Contact Info) Description 09/28/2016 Interpretation Only Radiology 1 [facility] [place] [address] Unknown None Social History Tobacco Use Types [...] Name Priority Date/Time Associated Diagnosis Comments CT ABDOMEN AND PELVIS WO CONTRAST Routine 09/28/2016 9:37 AM EST documented in this encounter Results * CT Abdomen & Pelvis wo Contrast (09/28/2016 9:37 AM EST) Anatomical Region Laterality Modality Abdomen, Pelvis Computed Tomogra phy 09/28/2016 9:37 AM EST Narrative 09/28/2016 9:37 AM EST APD Historical Result Principal Logging Specialist: ??JENNY ??SYEDA CT ABDOMEN AND PELVIS WITHOUT ORAL AND INTRAVENOUS CONTRAST: Scanning is performed with the patient prone and without oral or intravenous contrast following the renal stone protocol. INDICATION: ??The patient had right-sided pain, right upper quadrant pain since Tuesday (for 3 days). ??The patient rates pain 7/10 on the pain scale. ??Dr Singh reports the patient also has a slightly elevated white count. COMPARISON: ??To February 10, 2014. FINDINGS: Lung bases are notable for a number of calcified granulomas in the left lung base. ??There is some dependent atelectasis noted. ??The right lung base peripherally, there is a noncalcified nodule measuring under 5 mm in diameter, which is stable when compared to the February 10, 2014 study. Given its stability, this is benign. Lack of contrast limits evaluation of the visceral organs. ??Unenhanced images of the liver, spleen, pancreas, adrenals, and kidneys are unremarkable. ??There are no renal calculi demonstrated. ??There are surgical clips associated with the stomach and the gallbladder fossa, also seen in the large bowel, left upper abdomen and postoperative changes are stable when compared to the prior study. Changes from gastric bypass appear stable. There is no abdominal or retroperitoneal pelvic lymphadenopathy. ??No free abdominal or free pelvic fluid. ??No free air. ??Bladder is unremarkable. ??There is much stool in the rectum. ?? Aorta and IVC are unremarkable. ??There is a bone island in the 6th rib on the right. ??No acute displaced rib fractures. ??Degenerative endplate changes. Vertebral body heights are maintained. ??Posterior disc bulges at L5/S1, L3-4. ??Bone islands associated with pelvis also incidentally noted. There are atrophic changes in right rectus muscle consistent with previous surgery. ??Degenerative changes in the spine including endplates and facets noted. ??Evaluation of the bowel is limited without contrast though there is no definite abnormal dilated loops of bowel or abnormal air fluid levels. ?? There is gas distended in loops of bowel in the area of previous small bowel surgery on the left side. ?? There are atherosclerotic calcifications of the aorta noted. ??No findings for appendicitis. ?? Common bile duct is stable when compared to the previous study measuring up to 7 mm in diameter in this patient who is post cholecystectomy. IMPRESSION: No kidney stones. ??No hydronephrosis. ??Postoperative changes. ??There is no definite etiology for the patient's right-sided pain or slightly elevated white count identified on this unenhanced CT. Jenny Landa MD [facility]/ [id number] Procedure Note Unknown - 01/22/2019 APD Historical Result Principal Logging Specialist: JENNY LANDA CT ABDOMEN AND PELVIS WITHOUT ORAL AND INTRAVENOUS CONTRAST: Scanning is performed with the patient prone and without oral orintravenous contrast following the renal stone protocol. INDICATION: The patient had right-sided pain, right upper quadrant painsince Tuesday (for 3 days). The patient rates pain 7/[address] on the pain scale[address] Dr Singh reportsthe patient also has a slightly elevated white count. COMPARISON: To February 10, 2014. FINDINGS: Lung bases are notable for a number of calcified granulomas in the leftlung base. There is some dependent atelectasis noted. The right lung base peripherally, thereis a noncalcified nodule measuring under 5 mm in diameter, which is stable when compared to theFebruary 10, 2014 study. Given its stability, this is benign. Lack of contrast limits evaluation of the visceral organs. Unenhancedimages of the liver, spleen, pancreas, adrenals, and kidneys are unremarkable. There are norenal calculi demonstrated. There are surgical clips associated with the stomach and the gallbladder fossa,also seen in the large bowel, left upper abdomen and postoperative changes are stable whencompared to the prior study. Changes from gastric bypass appear stable. There is no abdominal or retroperitoneal pelvic lymphadenopathy. No freeabdominal or free pelvic fluid. No free air. Bladder is unremarkable. There is much stoolin the rectum. Aorta and IVC are unremarkable. There is a bone island in the 6th rib on the right. Noacute displaced rib fractures. Degenerative endplate changes. Vertebral body heights aremaintained. Posterior disc bulges at L5/S1, L3-4. Bone islands associated with pelvis also incidentally noted.There are atrophic changes in right rectus muscle consistent with previous surgery.Degenerative changes in the spine including endplates and facets noted. Evaluation of the bowel is limitedwithout contrast though there is no definite abnormal dilated loops of bowel or abnormalair fluid levels. There is gas distended in loops of bowel in the area of previous small bowel surgery onthe left side. There are atherosclerotic calcifications of the aorta noted. No findingsfor appendicitis. Common bile duct is stable when compared to the previous study measuring up to 7 mm indiameter in this patient who is post cholecystectomy. IMPRESSION: No kidney stones. No hydronephrosis. Postoperative changes.There is no definite etiology for the patient's right-sided pain or slightly elevated whitecount identified on this unenhanced CT. Jenny TYolanda Landa MD [facility]/ [id number] Unknown IMG CT ORDERABLES documented in this encounter Visit Diagnoses Not on filedocumented in this encounter Care Teams Senior Hris Analyst Relationship Specialty Start Date End Date Yisel Marroquin MD [address] [facility] [place] [address] PCP - General 11/13/18 03/05/19 documented as of this encounter
--- OUTSIDE RECORDS SUMMARY | 2024-02-22 00:55 | XMS_ITS | Encounter Summary ---
[facility] Organization [facility] [place] [address] Care Team Providers Care Insulation Manager Name Role Phone Adriana Perla APRN Primary Care Provider [phone] Encounter Details Date Type Department Care Team (Latest Contact Info) Description 12/18/2015 Multidisciplinary Ca re Committee [place] [address] Sidra Del Toro, [facility] [place] [address] Social History Tobacco Use Types Packs/Day Years [...] Progress Notes * Sidra Del Toro - 12/18/2015 5:57 PM EDT BARIATRIC SURGERY PROGRAM SURGICAL TEAM CASE REVIEW Jeannie Rico is a 55 y.o. year-old female. Her primary care physician is ADRIANA PERLA APRN: Bariatric Surgery Program introductory meeting attendance: NA Evaluation by a member of the [facility] Bariatric Surgery Program previously: + Staff present at today's meeting: Kasia Crouch MD, Hand Loom Weaver, Skinny Gomez MD, Meena Pena MD, Rajendra Williamson MD, Tamar Guerra, MS RD, Sidra Del Toro APRN, Niecy Darden RDN Reason for presentation: review egd Problem List ??? Pre-operative Class IV obesity BMI 51.8, S/P gastric bypass, question of staple line breakdown since 2010 ??? Hypertension: current treatment with lisinopril and metoprolol ??? Type 2 diabetes: no current treatment requirements ??? GERD: increased dose of PPI on 09/22 to BID A. EGD scheduled previously in 2010, did not have done due to anxiety CAD, S/P percutaneous coronary angioplasty: currently stable, on clopidogrel A. S/P hospitalization for [facility], ALF placement x 2 to 90% stenosis of proximal 1 LAD and 60% stenosis of proximal 2 LAD on 04/16/13 ??? Musculoskeletal issues: A. Cervicalgia B. lumbago ??? Chronic pain ??? Hypothyroidism ??? COPD ??? Tobacco dependence, started at age 11, highest use 2.5 PPD: Reports current use as 1 pack cigarettes a day, which she rolls herself, she is in contemplation stage of cessation. Brandon smokes. At one point, she reports stopped for 8 months ??? Psychological issues: stable with regular counseling bekah Smithestrellita Lynda in [place]. She finds self-hypnosis, drawing and meditation helpful, reports decreasing medication a. anxiety and panic disorderHidradenitis suppurativa b. history of depression c. Borderline Personality [...] T &A ??? Complete dental extractions 1998 Plan of care: Per report, Ms Rico indicated improvement in epigastric pain after diet improvement. Per letter to patient, Dr Guevara indicated no abnormal findings. Smoking cessation encouraged documented in this encounter Plan of Treatment Not on file documented as of this encounter Visit Diagnoses Not on filedocumented in this encounter Care Teams Insulation Manager Relationship Specialty Start Date End Date Adriana Perla APRN [address] [place] [address] PCP - General 06/16/10 06/27/18 documented as of this encounter
--- OUTSIDE RECORDS SUMMARY | 2024-02-22 00:55 | XMS_ITS | Encounter Summary ---
[place] [address] Care Team Providers Care Checkman Name Role Phone Aman Lawrence APRN Primary Care Provider [phone] Encounter Details Date Type Department Care Team (Late st Contact Info) Description 10/21/2017 Telephone [place] [address] Irasema Calvin Social History Tobacco Use Types Packs/Day Years [...] Miscellaneous Notes * Telephone Encounter - Irasema Calvin - 10/21/2017 12:40 PM EDT Spoke on the phone with Jeannie to schedule her annual follow up appointment with Sidra Del Toro. She said that her binder caser will have to bring her, so she and her binder caser are going to call back to schedule sometime next week. I will push her recall incase we don't hear from her. documented in this encounter Plan of Treatment Not on file documented as of this encounter Visit Diagnoses Not on filedocumented in this encounter Care Teams Checkman Relationship Specialty Start Date End Date Aman Lawrence APRN [address] [place] [address] PCP - General 06/16/10 06/27/18 documented as of this encounter
--- OUTSIDE RECORDS SUMMARY | 2024-02-22 00:55 | XMS_ITS | Encounter Summary ---
Author Organization [facility] [place] [address] Care Team Providers Care Ceiling Installer Name Role Phone Yisel Marroquin MD Primary Care Provider [phone] Encounter Details Date Type Department Care Team (Late st Contact Info) Description 01/04/2018 Orders Only Radiology and Cardiology Results [address] [place] [address] Apd Conversion, Results Provider, Social History Tobacco [...] Priority Date/Time Associated Diagnosis Comments TSH Routine 01/04/2018 documented in this encounter Results * (ABNORMAL) TSH (01/04/2018) TSH 2.125(Exte rnal Lab) 0.358 - 3.740 [facility] [place] CONVERSION 01/04/2018 Results Provider Apd Conversion MD JASON ESTRELLA ORDERABLES KORI GARCIA CONVERSION documented in this encounter Visit Diagnoses Not on filedocumented in this encounter Care Teams Ceiling Installer Relationship Specialty Start Date End Date Yisel Marroquin MD [address] [place] [address] PCP - General 11/13/18 03/05/19 documented as of this encounter
--- OUTSIDE RECORDS SUMMARY | 2024-02-22 00:55 | XMS_ITS | Encounter Summary ---
Author Organization [facility] Address [facility] [place] [address] Care Team Providers Care Yield Engineer Name Role Phone Yisel Marroquin MD Primary Care Provider [phone] Encounter Details Date Type Department Care Team (Late st Contact Info) Description 08/22/2017 Abstract [place] Conversion Results [address] [place] [address] Apd Conversion, Flowsheet Provider, Social History Tobacco [...] Sign Reading Time Taken Comments Blood Pressure 122/78 08/22/2017 10:40 AM EST Sourced from APD Conversion Pulse - - Temperature - - Respiratory Rate - - Oxygen Saturation - - Inhaled Oxygen Concentration - - Weight 102.5 kg (225 lb 15.5 oz) 08/22/2017 10:40 AM EST Sourced from APD Conversion Height 162 cm (5' 3.78) 08/22/2017 10: 40 AM EST Sourced from APD Conversion Body Mass Index 39.06 08/22/2017 10:40 AM EST documented in this encounter Plan of Treatment Not on file documented as of this encounter Visit Diagnoses Not on filedocumented in this encounter Care Teams Yield Engineer Relationship Specialty Start Date End Date Yisel Marroquin MD [address] [id number] PCP - General 11/13/18 03/05/19 documented as of this encounter
--- OUTSIDE RECORDS SUMMARY | 2024-02-22 00:55 | XMS_ITS | Encounter Summary ---
Author Organization [facility] [place] [address] Care Team Providers Care Train Engineer Name Role Phone Yisel Marroquin MD Primary Care Provider [phone] Encounter Details Date Type Department Care Team (Late st Contact Info) Description 01/04/2018 Orders Only Radiology and Cardiology Results [address] [place] [id number] Apd Conversion, Results Provider, Social History Tobacco [...] Date/Time Associated Diagnosis Comments HEMOGLOBIN A1C Routine 01/04/2018 documented in this encounter Results * (ABNORMAL) Hemoglobin A1c (01/04/2018) Est Avg Gluc 114.0(Exte rnal Lab) 82.5 - 116.9 [place] [place] DAY CONVERSION Hemoglobin A1C 5.6(Irradiated Fuel Handler al Lab) 4.5 - 6.2 [place] DAY CONVERSION 01/04/2018 Results Provider Apd Conversion MD JASON ESTRELLA ORDERABLES [place] CONVERSION documented in this encounter Visit Diagnoses Not on filedocumented in this encounter Care Teams Train Engineer Relationship Specialty Start Date End Date Yisel Marroquin MD [address] [place] [address] PCP - General 11/13/18 03/05/19 documented as of this encounter
--- OUTSIDE RECORDS SUMMARY | 2024-02-22 00:55 | XMS_ITS | Encounter Summary ---
[facility] [place] [address] Care Team Providers Care Highway Research Engineer Name Role Phone Aman Lawrence APRN Primary Care Provider [phone] Encounter Details Date Type Department Care Team (Late st Contact Info) Description 01/19/2017 Orders Only [place] [address] Kenya Villanueva, RN Social History Tobacco Use [...] on filedocumented in this encounter Care Teams Highway Research Engineer Relationship Specialty Start Date End Date Aman Lawrence [place] [address] PCP - General 06/16/10 06/27/18 documented as of this encounter
--- OUTSIDE RECORDS SUMMARY | 2024-02-22 00:55 | XMS_ITS | Encounter Summary ---
Author Organization [facility] [place] [address] Care Team Providers Care Television Maintenance Man Name Role Phone Aman Lawrence APRN Primary Care Provider [phone] Reason for Visit * Reason Onset Date Comments Chest Pain 04/26/2016 Encounter Details Date Type Department Care Team (Late st Contact Info) Description 05/03/2016 Telephone Cardiology at [address] [id number] Yadira Sung RN Chest Pain Social History Tobacco Use Types Packs/Day Years [...] encounter Miscellaneous Notes * Telephone Encounter - Yadira Sung RN - 05/03/2016 9:48 AM EDT Pt calls today concerned about daily chest pain for the past 1 week. She describes it as dull pain just to the left of my breast bone and straight through to my back. Pt states she has been taking 1 nitro daily, with relief. She previously was never taking nitro. Pt was recently seen by her PCP and states her blood pressure and heart rate were fine so she didn't consider further evaluation at the time. Appointment scheduled for Tuesday at 8 am with an EKG, instructed pt to arrive by 7:45. Advised pt to seek emergency care if CP persists after 3 NTG, is accompanied by SOB or diaphoresis.Pt verbalized understanding and agreeable with POC. Yadira Sung, RN 9:52 AM 05/03/2016 documented in this encounter Plan of Treatment Not on file documented as of this encounter Results * EKG 12 Lead (05/10/2016 7:53 AM EDT) Ventricular rate 50 BPM MUSE SYSTEM Atrial Rate 50 BPM MUSE SYSTEM P-R Interval 150 ms MUSE SYSTEM QRS Duration 86 ms MUSE SYSTEM Q-T Interval 438 ms MUSE SYSTEM QTC Calculated (Bezet) 399 ms MUSE SYSTEM Calculated P [place] 55 degrees MUSE SYSTEM Calculated R [place] 61 degrees MUSE SYSTEM Calculated T [place] 36 degrees MUSE SYSTEM INTERPRETATION Sinus bradycardia Low voltage QRS Borderline ECG When compared with ECG of 10-MAY-2013 08:23, Nonspecific T wave abnormality no longer evident in Anterolateral leads Confirmed by MD ASPEN, BETTYEWARD ([id number]) on 05/10/2016 12:03:03 PM MUSE SYSTEM 05/10/2016 7:53 AM EDT 05/10/2016 12:03 PM EDT Freddy Mejias MD ECG ORDERABLES MUSE SYSTEM documented in this encounter Visit Diagnoses Diagnosis Chest pain, unspecified type documented in this encounter Care Teams Television Maintenance Man Relationship Specialty Start Date [place] [address] PCP - General 06/16/10 06/27/18 documented as of this encounter
--- OUTSIDE RECORDS SUMMARY | 2024-02-22 00:55 | XMS_ITS | Encounter Summary ---
Author Organization [facility] Address [facility] [place] [address] Care Team Providers Care Monitoring Analyst Name Role Phone Aman Lawrence APRN Primary Care Provider [phone] Reason for Visit * Reason Comments Chest Pain Coronary Artery Disease Hypertension Encounter Details Date Type Department Care Team (Latest Contact Info) Description 12/13/2016 10:00 AM EDT Office Visit Cardiology at [address] [address] Freddy Mejias MD [facility] [place] [address] Atherosclerosis of [place] coronary artery of [place] heart without angina pectoris; Essential hypertension Social History Tobacco Use Types Packs/Day [...] Sign Reading Time Taken Comments Blood Pressure 122/80 12/13/2016 10:08 AM EDT Pulse 54 12/13/2016 10:08 AM EDT Temperature - - Respiratory Rate - - Oxygen Saturation 95% 12/13/2016 10:08 AM EDT Inhaled Oxygen Concentration - - Weight 104.3 kg (230 lb) 12/13/2016 10:08 AM EDT Height 162.6 cm (5' 4) 12/13/2016 10:08 AM EDT Body Mass Index 39.48 12/13/2016 10:08 AM EDT documented in this encounter Patient Instructions * Patient Instructions* Freddy Mejias MD - 12/13/2016 10:00 AM EDT You are doing well. It is possible that your occasional dizziness is due to your medication. Therefore, decrease your Lisinopril to 20 mg once a day. Continue on your other medications. Stop smoking on January 06. It is the single best thing you can do for your health. Stay active. I will see you back in 6 months. documented in this encounter Progress Notes * Freddy Mejias MD - 12/13/2016 10:00 AM EDT SUBJECTIVE: 54 year old woman with known CAD s/p recent stenting of her LAD. Her cardiac catheterization showed a 90% stenosis of the proximal LAD and a 70% stenosis of the mid LAD. She received ALF x 2. EF was 60% by Echo. Last seen by me 06/14/16 for typical anginal pain. Started on long acting nitrates and ACEI increased to improve BP control. Being seen for a CC of angina and hypertension. Patient Active Problem List Diagnosis ??? Osteoporosis DEXA done at [facility] on 10/29/15: osteoporosis at the left hip T-3, and osteopenia of the spine T-1.9 ??? Atherosclerosis of [place] coronary artery of [place] heart without angina pectoris ??? Hypertension ??? [...] BIOPSY performed by Ken Sanders MD at [facility] ENDOSCOPY ??? UPPER GI ENDOSCOPY, EXAM 12/04/2010 UPPER GI ENDOSCOPY performed by DEE WRIGHT at [facility] ENDOSCOPY No family history on file. Social History Social History ??? Marital status: Spouse name: N/A ??? Number of children: N/A ??? Years of education: N/A Social History Main Topics ??? Smoking status: Current Every Day Smoker Packs/day: 1.00 Years: 45.00 Types: Cigarettes ??? Smokeless tobacco: Never Used ??? Alcohol use No ??? Drug use: No ??? Sexual activity: Not on file Other Topics Concern ??? Not on file Social History Narrative Social history: , no children. Lives in [place]. 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 Smoking: Active smoker, 2ppd Alcohol: Prior alcoholic, in remission for 16 years Illicits: Denies Significant family history: + Family history of CAD Current Outpatient Prescriptions Medication Sig Dispense Refill ??? ASCORBIC ACID, VITAMIN C, ORAL Take 1,000 mg by mouth daily. ??? Calcium Citrate-Vitamin D3 315-250 mg-unit Tablet Take 2 tablets by mouth 2 times daily. (2) tabs 2 times daily. 360 tablet 3 ??? dmqylynbblrk-wzym-hradeuqo (COMPLETE MULTIVITAMIN) Tablet Take 1 tablet by mouth 2 times daily.180 tablet 3 ??? cholecalciferol, Vitamin D3, 2,000 unit Capsule Take 1 capsule by mouth daily. 90 capsule 3 ??? tiZANidine (ZANAFLEX) 4 mg Tablet Take [...] Take 70 mg by mouth daily. ??? isosorbide mononitrate (IMDUR) 60 mg Tablet Sustained Release 24 hr Take 1 tablet by mouth daily. 30 tablet 11 ??? lisinopril (PRINIVIL;ZESTRIL) 40 mg Tablet Take 1 tablet by mouth daily. 30 tablet 11 ??? QUEtiapine (SEROQUEL) 25 mg tablet Take 50 mg by mouth as needed. 1-4 times per day ??? promethazine (PHENERGAN) 25 mg tablet Take [...] mg by mouth every other day. ??? aspirin 81 mg EC tablet Take 1 tablet by mouth daily. 30 tablet 6 ??? clopidogrel (PLAVIX) 75 mg tablet Take 1 tablet by mouth daily. 30 tablet 6 ??? nitroGLYcerin (NITROSTAT) 0.[address] 1 tablet under the tongue every 5 minutes as needed for Chest pain. Do not use more than 3 doses in 15 minute time period (Patient not taking: Reported on 11/19/2016) 90 tablet 3 ??? methocarbamol (ROBAXIN) 500 mg tablet Take 500 mg by mouth 4 times daily. ??? fluticasone-salmeterol (ADVAIR DISKUS) 500-50 mcg/dose diskus inhaler 1 Disk(s), Inh, Twice daily ??? levothyroxine (SYNTHROID) 50 mcg tablet 50MCG, PO, Once daily No current facility-administered medications for this visit. [...] cigarettes/day. Weight up. Not exercising. Remains hypertensive.) (FROM 06/14/16: Exertional chest/shoulder pressure much improved. Occasional episode <1 per week. No shoulder pain. Using no SL NTG. Tolerating the medications. Having trouble with nightmares. Wonders if her prazosin can be increased.) FROM 12/13/16: She is doing well. Very productive. Rare dizziness. No exertional chest or should pain and no unusual SOB. Taking all her medications. No obvious side effects. Cutting back on cigarettesmoking. Has a quite date on January 06. ROS: The patient denies: General: Unusual fatigue, [...] PHYSICAL EXAM Healthy appearing, looking stated age There were no vitals taken for this visit. HEENT: Normocephalic, anicteric, pupils equal, round, reactive [...] been on her new medicationfor 1 week.) (FROM 06/14/16: NYHA Class II chronic stable angina. Much improved double product control. Will tryadvancing Imdur to 60 mg QD. Informed of possible side effects. If need be her prazosin can be advanced to help with her nightmares. If her BP falls and she is symptomatic with dizziness her lisinopril can be decreased. I once again offered support for smoking cessation.) FROM 12/13/16: No evidence of active ischemia. On guideline medications. Will decrease her lisinopril to 20 mg QD given the possibility that it is contributing to her episodic dizziness. Encouraged her to quite smoking as planned on January 06. Encouraged her to eat a heart healthy diet, to lose weight and to exercise. Time was spent in a face to face conversation with the patient (and accompanying family members, ifpresent) regarding my impressions and recommendations and providing counseling. All questions were answered to the patient's (and accompanying family's, if present) satisfaction. I will plan to see the patient back in follow-up in 6 months. documented in this encounter Plan of Treatment Not on file documented as of this encounter Visit Diagnoses Diagnosis Atherosclerosis of [place] coronary artery of [place] heart without angina pectoris Essential hypertension Unspecified essential hypertension documented in this encounter Care Teams Monitoring Analyst Relationship Specialty Start Date End Date Aman Lawrence APRN [address] [place] [address] PCP - General 06/16/10 06/27/18 documented as of this encounter
--- OUTSIDE RECORDS SUMMARY | 2024-02-22 00:55 | XMS_ITS | Encounter Summary ---
Author Organization [facility] [place] [address] Care Team Providers Care Woven Blind Loom Tender Name Role Phone Aman Lawrence APRN Primary Care Provider [phone] Encounter Details Date Type Department Care Team (Late st Contact Info) Description 09/28/2016 - 09/28/2016 11:59 PM EST Hospital Encounter [place] [id number] Dr [place] Temporary Pain Discharge Disposition: Home Social History Tobacco Use [...] Sig Dispensed Refills Start Date End Date tiZANidine (ZANAFLEX) 4 mg Tablet Take 4 [...] 70 mg by mouth daily. 05/23/2016 11/15/2018 isosorbide mononitrate (IMDUR) 60 mg Tablet Sustained Release 24 hr Take 1 tablet by mouth daily. 30 tablet 11 06/14/2016 04/25/2017 lisinopril (PRINIVIL;ZESTRIL) 40 mg Tablet Take 1 tablet by mouth daily. 30 tablet 11 05/10/2016 12/13/2016 QUEtiapine (SEROQUEL) 25 mg tablet Take 50 mg by mouth as needed. 1-4 times per day 11/15/2018 HYDROcodone-acetaminophe n 5-325 mg per tablet Take 1 tablet [...] vitamins (B COMPLEX-VITAMIN B12) tablet 09/23/2010 11/19/2016 petfacbggxbk-xpym-xkxgwr ls (COMPLETE MULTIVITAMIN) Tab tablet 1 Tablet(s), PO, Once daily 09/23/2010 11/19/2016 calcium citrate-vitamin D (CITRACAL+D) 315-200 mg-unit per tablet 2 Tablet(s), PO, Twice daily 09/23/2010 11/19/2016 ergocalciferol (VITAMIN D) 50,000 unit capsule [id number], PO, TWICE a week 09/23/2010 11/19/2016 documented as of this encounter Plan of Treatment Not on file documented as of this encounter Procedures Procedure Name Priority Date/Time Associated Diagnosis Comments FILM LIBRARY STORAGE ONLY CT ABDOMEN AND PELVIS Routine 09/28/2016 12:00 AM EST Pain documented in this encounter Results * Film Library- Storage Only CT Abdomen & Pelvis (09/28/2016 12:00 AM EST) Narrative HONEY - 10/12/2016 1:44 PM EDT This exam is for storage only and is [facility]final[facility]. [facility] ORD ERABLES [place], [place] documented in this encounter Visit Diagnoses Diagnosis Pain Generalized pain documented in this encounter Care Teams Woven Blind Loom Tender Relationship Specialty Start Date End Date Aman Lawrence APRN [address] [place] [address] PCP - General 06/16/10 06/27/18 documented as of this encounter
--- OUTSIDE RECORDS SUMMARY | 2024-02-22 00:56 | XMS_ITS | Encounter Summary ---
Author Organization [facility] [place] [address] Care Team Providers Care Production Quality Analyst Name Role Phone Aman Lawrence APRN Primary Care Provider [phone] Reason for Visit * Reason Comments Medication Refill Encounter Details Date Type Department Care Team (Late st Contact Info) Description 06/06/2013 Refill Intermediate [place] [phone] Tamar Kay MD [facility] [place] [address] Social History Tobacco Use Types Packs/Day Years [...] on filedocumented in this encounter Care Teams Production Quality Analyst Relationship Specialty Start Date End Date Aman Lawrence [place] [address] PCP - General 06/16/10 06/27/18 documented as of this encounter
--- OUTSIDE RECORDS SUMMARY | 2024-02-22 00:56 | XMS_ITS | Encounter Summary ---
[place] [address] Care Team Providers Care Senior Interior Designer Name Role Phone Aman Lawrence APRN Primary Care Provider [phone] Encounter Details Date Type Department Care Team (Late st Contact Info) Description 06/20/2013 Notes [place] [address] Monique Lopez Social History Tobacco Use Types Packs/Day Years [...] of this encounter Progress Notes * Monique Lopez - 06/20/2013 2:39 PM EST Received a call from Jeannie, she is unable to attend due to an ear infection. Jeannie was only able toattend 4 sessions in the month of May. It was discussed that Jeannie contact us when she is ready to return to cardiac rehab 3 x wk. Till then she will be moved to [facility]. documented in this encounter Plan of Treatment Not on file documented as of this encounter Visit Diagnoses Not on filedocumented in this encounter Care Teams Senior Interior Designer Relationship Specialty Start Date End Date Aman Lawrence APRN [address] [place] [address] PCP - General 06/16/10 06/27/18 documented as of this encounter
--- OUTSIDE RECORDS SUMMARY | 2024-02-22 00:56 | XMS_ITS | Encounter Summary ---
Author Organization [facility] [place] [address] Care Team Providers Care Sales Review Clerk Name Role Phone Yisel Marroquin MD Primary Care Provider [phone] Encounter Details Date Type Department Care Team (Late st Contact Info) Description 05/16/2014 Abstract [place] Conversion Results [address] [place] [address] Apd Conversion, Flowsheet Provider, Social History Tobacco [...] Sign Reading Time Taken Comments Blood Pressure 138/84 05/16/2014 1:01 PM EDT Sourced from APD Conversion Pulse - - Temperature - - Respiratory Rate - - Oxygen Saturation - - Inhaled Oxygen Concentration - - Weight 108.2 kg (238 lb 8.6 oz) 05/16/2014 1:01 PM EDT Sourced from APD Conversion Height - - Body Mass Index 41.74 04/16/2014 5:05 PM EDT documented in this encounter Plan of Treatment Not on file documented as of this encounter Visit Diagnoses Not on filedocumented in this encounter Care Teams Sales Review Clerk Relationship Specialty Start Date End Date Yisel Marroquin MD [address] [id number] PCP - General 11/13/18 03/05/19 documented as of this encounter
--- OUTSIDE RECORDS SUMMARY | 2024-02-22 00:56 | XMS_ITS | Encounter Summary ---
Author [facility] [place] [address] Care Team Providers Care Target Aircraft Technician Name Role Phone Yisel Marroquin MD Primary Care Provider [phone] Encounter Details Date Type Department Care Team (Late st Contact Info) Description 10/29/2014 Abstract [place] Conversion Results [address] [place] [address] Apd Conversion, Flowsheet Provider, Social History Tobacco [...] Sign Reading Time Taken Comments Blood Pressure 160/84 10/29/2014 10:38 AM EDT Sourced from APD Conversion Pulse - - Temperature - - Respiratory Rate - - Oxygen Saturation - - Inhaled Oxygen Concentration - - Weight 111 kg (244 lb 11.4 oz) 10/29/2014 10:38 AM EDT Sourced from APD Conversion Height - - Body Mass Index 42.82 04/16/2014 5:05 PM EDT documented in this encounter Plan of Treatment Not on file documented as of this encounter Visit Diagnoses Not on filedocumented in this encounter Care Teams Target Aircraft Technician Relationship Specialty Start Date End Date Yisel Marroquin MD [address] [id number] PCP - General 11/13/18 03/05/19 documented as of this encounter
--- OUTSIDE RECORDS SUMMARY | 2024-02-22 00:56 | XMS_ITS | Encounter Summary ---
Author Organization [facility] Address [facility] [place] [address] Care Team Providers Care National Basketball [employer] Scout Name Role Phone Yisel Marroquin MD Primary Care Provider [phone] Encounter Details Date Type Department Care Team (Late st Contact Info) Description 09/29/2015 Abstract [place] Conversion Results [address] [place] [address] Apd Conversion, Flowsheet Provider, Social History Tobacco [...] Sign Reading Time Taken Comments Blood Pressure 132/82 09/29/2015 8:06 AM EST Sourced from APD Conversion Pulse - - Temperature - - Respiratory Rate - - Oxygen Saturation - - Inhaled Oxygen Concentration - - Weight 110 kg (242 lb 8.1 oz) 09/29/2015 8:06 AM EST Sourced from APD Conversion Height - - Body Mass Index 41.91 05/01/2015 9:45 AM EDT documented in this encounter Plan of Treatment Not on file documented as of this encounter Visit Diagnoses Not on filedocumented in this encounter Care Teams [employer] Scout Relationship Specialty Start Date End Date Yisel Marroquin MD [address] [place] [address] PCP - General 11/13/18 03/05/19 documented as of this encounter
--- OUTSIDE RECORDS SUMMARY | 2024-02-22 00:56 | XMS_ITS | Encounter Summary ---
[place] [address] Care Team Providers Care Children'S Counselor Name Role Phone Yisel Marroquin MD Primary Care Provider [phone] Encounter Details Date Type Department Care Team (Late st Contact Info) Description 10/29/2015 Orders Only Radiology and Cardiology Results [address] [place] [phone] Apd Conversion, Results Provider, Social History Tobacco [...] Procedure Name Priority Date/Time Associated Diagnosis Comments VITAMIN D, 25-HYDROXY Routine 10/29/2015 documented in this encounter Results * (ABNORMAL) Vitamin D, 25-Hydroxy (10/29/2015) 25-OH Vit D Total 36.7(Exter nal Lab) 30.0 - 100.0 [facility] CONVERSION 10/29/2015 Results Provider Apd Conversion MD JASON ESTRELLA ORDERABLES KORI CONVERSION documented in this encounter Visit Diagnoses Not on filedocumented in this encounter Care Teams Children'S Counselor Relationship Specialty Start Date End Date Yisel Marroquin MD [address] [place] [address] PCP - General 11/13/18 03/05/19 documented as of this encounter
--- OUTSIDE RECORDS SUMMARY | 2024-02-22 00:56 | XMS_ITS | Encounter Summary ---
Author Organization [facility] Address [facility] [place] [address] Care Team Providers Care Handicrafts Teacher Name Role Phone Aman Lawrence APRN Primary Care Provider [phone] Reason for Visit * Reason Onset Date Comments Medication Refill 08/02/2013 Simvastatin Encounter Details Date Type Department Care Team (Late st Contact Info) Description 08/02/2013 Refill Cardiology at [address] [address] Freddy Mejias MD [facility] [place] [address] Medication Refill (Simvastatin) Social History Tobacco Use Types Packs/Day Years [...] this encounter Visit Diagnoses Diagnosis 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
--- OUTSIDE RECORDS SUMMARY | 2024-02-22 00:56 | XMS_ITS | Encounter Summary ---
Author Organization [facility] Address [facility] [place] [address] Care Team Providers Care Gravedigger Name Role Phone Yisel Marroquin MD Primary Care Provider [phone] Encounter Details Date Type Department Care Team (Late st Contact Info) Description 09/17/2014 Abstract [place] Conversion Results [address] [place] [address] Apd Conversion, Flowsheet Provider, Social History Tobacco [...] Sign Reading Time Taken Comments Blood Pressure 136/80 09/17/2014 2:31 PM EST Sourced from APD Conversion Pulse - - Temperature - - Respiratory Rate - - Oxygen Saturation - - Inhaled Oxygen Concentration - - Weight 109 kg (240 lb 4.8 oz) 09/17/2014 2:31 PM EST Sourced from APD Conversion Height - - Body Mass Index 42.05 04/16/2014 5:05 PM EDT documented in this encounter Plan of Treatment Not on file documented as of this encounter Visit Diagnoses Not on filedocumented in this encounter Care Teams Gravedigger Relationship Specialty Start Date End Date Yisel Marroquin MD [address] [place] [address] PCP - General 11/13/18 03/05/19 documented as of this encounter
--- OUTSIDE RECORDS SUMMARY | 2024-02-22 00:56 | XMS_ITS | Encounter Summary ---
Author Organization [facility] Address [facility] [place] [place] [address] Care Team Providers Care Firer Helper Name Role Phone Yisel Marroquin MD Primary Care Provider [phone] Encounter Details Date Type Department Care Team (Late st Contact Info) Description 02/10/2014 Interpretation Only Radiology [address] [facility] [place] [address] Unknown None Social History Tobacco Use Types [...] CT ABDOMEN AND PELVIS WO CONTRAST Routine 02/10/2014 5:07 PM EDT documented in this encounter Results * CT Abdomen & Pelvis wo Contrast (02/10/2014 5:07 PM EDT) Anatomical Region Laterality Modality Abdomen, Pelvis Computed Tomogra phy 02/10/2014 5:07 PM EDT Narrative 02/10/2014 5:07 PM EDT APD Historical Result Principal Bench Lathe Operator: ??JENNY ??SYEDA CT ABDOMEN AND PELVIS WITHOUT ORAL OR INTRAVENOUS CONTRAST: Scanning was performed from the apices of the diaphragms through pubic symphysis without oral or intravenous contrast and with the patient prone following the renal stone protocol. Calcific granuloma at the left lung base and dependent atelectasis. There is no free air. ?? Unenhanced images of the liver, spleen, pancreas, adrenals, and right kidney are unremarkable. There are surgical clips in the gallbladder fossa. ??There are left upper quadrant abdominal surgical artie from previous bowel surgery. Radiopaque material within the ascending colon incidentally noted likely was an ingested tablet. Right kidney is unremarkable. ??There is moderate left-sided hydronephrosis and left hydroureter. ??There is a 2.5-mm stone at the ureteropelvic junction/proximal- most ureter. ??This is seen at the level of the lower pole of the left kidney. ??There is no abdominal, retroperitoneal, or pelvic lymphadenopathy. ??There is no free abdominal or free pelvic fluid. Bladder is unremarkable. ??There is underdistention of the bladder. The appendix is not visualized, maybe surgically absent. Skeleton is notable for degenerative changes in the spine. IMPRESSION: A 2.5-mm stone at the ureteropelvic junction causing moderate hydronephrosis and stranding in the adjacent fat. Postoperative changes and chronic changes, as described above. ?? Results discussed with Dr Mix at 6:20 p.m. on February 10, 2014. Jenny Landa MD [facility]/[place] [id number] CC: Procedure Note Unknown - 01/22/2019 APD Historical Result Principal Bench Lathe Operator: JENNY LANDA CT ABDOMEN AND PELVIS WITHOUT ORAL OR INTRAVENOUS CONTRAST: Scanning was performed from the apices of the diaphragms through pubicsymphysis without oral or intravenous contrast and with the patient prone following the renalstone protocol. Calcific granuloma at the left lung base and dependent atelectasis. Thereis no free air. Unenhanced images of the liver, spleen, pancreas, adrenals, and rightkidney are unremarkable. There are surgical clips in the gallbladder fossa. There are left upper quadrantabdominal surgical artie from previous bowel surgery. Radiopaque material within the ascending colon incidentally noted likelywas an ingested tablet. Right kidney is unremarkable. There is moderate left-sided hydronephrosisand left hydroureter. There is a 2.5-mm stone at the ureteropelvicjunction/proximal-most ureter. This is seen at the level of the lower pole of the left kidney. There is no abdominal,retroperitoneal, or pelvic lymphadenopathy. There is no free abdominal or free pelvic fluid. Bladder is unremarkable. There is underdistention of the bladder. The appendix is not visualized, maybe surgically absent. Skeleton is notable for degenerative changes in the spine. IMPRESSION: A 2.5-mm stone at the ureteropelvic junction causing moderatehydronephrosis and stranding in the adjacent fat. Postoperative changes and chronic changes,as described above. Results discussed with Dr Mix at 6:20 p.m. on February 10, 2014. Jenny Landa MD [facility]/ne [id number] CC: Unknown IMG CT ORDERABLES documented in this encounter Visit Diagnoses Not on filedocumented in this encounter Care Teams Firer Helper Relationship Specialty Start Date End Date Yisel Marroquin MD [address] [facility] [place] [address] PCP - General 11/13/18 03/05/19 documented as of this encounter
--- OUTSIDE RECORDS SUMMARY | 2024-02-22 00:56 | XMS_ITS | Encounter Summary ---
Author Organization [facility] Address [facility] [place] [address] Care Team Providers Care Assembler Wire Mesh Gate Name Role Phone Yisel Marroquin MD Primary Care Provider [phone] Encounter Details Date Type Department Care Team (Late st Contact Info) Description 11/13/2015 Abstract [place] Conversion Results [address] [place] [address] Apd Conversion, Flowsheet Provider, Social History Tobacco [...] Reading Time Taken Comments Blood Pressure 130/80 11/13/2015 1:38 PM EDT Sourced from APD Conversion Pulse - - Temperature - - Respiratory Rate - - Oxygen Saturation - - Inhaled Oxygen Concentration - - Weight 108 kg (238 lb 1.6 oz) 11/13/2015 1:38 PM EDT Sourced from APD Conversion Height - - Body Mass Index 41.15 05/01/2015 9:45 AM EDT documented in this encounter Plan of Treatment Not on file documented as of this encounter Visit Diagnoses Not on filedocumented in this encounter Care Teams Assembler Wire Mesh Gate Relationship Specialty Start Date End Date Yisel Marroquin MD [address] [id number] PCP - General 11/13/18 03/05/19 documented as of this encounter
--- OUTSIDE RECORDS SUMMARY | 2024-02-22 00:56 | XMS_ITS | Encounter Summary ---
Author Organization [facility] Address [facility] [place] [address] Care Team Providers Care Annual Greenhouse Manager Name Role Phone Yisel Marroquin MD Primary Care Provider [phone] Encounter Details Date Type Department Care Team (Late st Contact Info) Description 01/25/2015 Interpretation Only Radiology [facility] [place] [address] Unknown None Social History Tobacco Use Types [...] XR ANKLE MIN 3 VIEWS RIGHT Routine 01/25/2015 2:54 PM EDT documented in this encounter Results * XR Ankle Min 3 views Right (Generic) (01/25/2015 2:54 PM EDT) Anatomical Region Laterality Modality Ankle Right Radiographic Ara ging 01/25/2015 2:54 PM EDT Narrative 01/25/2015 2:54 PM EDT APD Historical Result Principal Tin Roofer: ??ISAK ??KENNEDY RIGHT ANKLE: INDICATION: ??Injury. COMPARISON: ??Right foot, January 25, 2015. FINDINGS: Three views of the right ankle show soft tissue swelling over the lateral malleolus. ??Three is no fracture, dislocation, or joint effusion. ??The base of the 5th metatarsal is intact. ??The ankle mortise is symmetric. IMPRESSION: Acute injury confined to the lateral soft tissues. Isak De Dios DO KE/mn [id number] CC: Procedure Note Unknown - 01/22/2019 APD Historical Result Principal Tin Roofer: ISAK HITCHCOCKMARGARETTE RIGHT ANKLE: INDICATION: Injury. COMPARISON: Right foot, January 25, 2015. FINDINGS: Three views of the right ankle show soft tissue swelling over the lateralmalleolus. Three is no fracture, dislocation, or joint effusion. The base of the 5thmetatarsal is intact. The ankle mortise is symmetric. IMPRESSION: Acute injury confined to the lateral soft tissues. Isak De Dios DO KE/mn [id number] CC: Unknown IMG DX ORDERABLES documented in this encounter Visit Diagnoses Not on filedocumented in this encounter Care Teams Annual Greenhouse Manager Relationship Specialty Start Date End Date Yisel Marroquin MD [address] [id number] PCP - General 11/13/18 03/05/19 documented as of this encounter
--- OUTSIDE RECORDS SUMMARY | 2024-02-22 00:56 | XMS_ITS | Encounter Summary ---
[place] [address] Care Team Providers Care Posting Clerk Name Role Phone Aman Lawrence APRN Primary Care Provider [phone] Reason for Visit * Reason Onset Date Comments Other 06/04/2013 ?PPI with Plavix Encounter Details Date Type Department Care Team (Late st Contact Info) Description 06/04/2013 Telephone Cardiology at [address] [phone] Irasema Mohan RN Other (?PPI with Plavix) Social History Tobacco Use Types Packs/Day Years [...] Miscellaneous Notes * Telephone Encounter - Irasema García RN - 06/05/2013 12:11 PM EST Spoke with patient. She will be seeing Dr Lawrence tomorrow. She will inform him of Dr Mejias's suggestion tomorrow. * Telephone Encounter - Irasema García RN - 06/05/2013 10:59 AM EST Left message with man at patient's home asking to have patient call-back and left our phone #. * Telephone Encounter - Irasema García RN - 06/05/2013 10:[address] Mejias: I would tell her just to go back on the Nexium. It will be okay. DJM * Telephone Encounter - Irasema García RN - 06/04/2013 12:10 PM EST Patient called and left message on nurse triage line today. Says she used to be on Nexium for GERD, but this was stopped and she was put on Protonix 40 mg after her stent placement. She says the Protonix was not working, her PCP increased the dose to 60 mg, but she is still without good relief of her symptoms. Says her symptoms were fine on the Nexium. She is calling to see if there are any other alternatives for prescription antacid that can be taken in combination with the Plavix. She is hoping for Dr Mejias's insight and recommendation on this matter. documented in this encounter Plan of Treatment Not on file documented as of this encounter Visit Diagnoses Not on filedocumented in this encounter Care Teams Posting Clerk Relationship Specialty Start Date [place] [address] PCP - General 06/16/10 06/27/18 documented as of this encounter
--- OUTSIDE RECORDS SUMMARY | 2024-02-22 00:56 | XMS_ITS | Encounter Summary ---
Author Organization [facility] Address [facility] [place] [address] Care Team Providers Care Occupational Health Coordinator Name Role Phone Yisel Marroquin MD Primary Care Provider [phone] Encounter Details Date Type Department Care Team (Late st Contact Info) Description 08/04/2015 Abstract [place] Conversion Results [address] [place] [address] Apd Conversion, Flowsheet Provider, Social History Tobacco [...] Reading Time Taken Comments Blood Pressure 144/86 08/04/2015 10:03 AM EST Sourced from APD Conversion Pulse - - Temperature - - Respiratory Rate - - Oxygen Saturation - - Inhaled Oxygen Concentration - - Weight 111.8 kg (246 lb 7.6 oz) 08/04/2015 10:03 AM EST Sourced from APD Conversion Height - - Body Mass Index 42.6 05/01/2015 9:45 AM EDT documented in this encounter Plan of Treatment Not on file documented as of this encounter Visit Diagnoses Not on filedocumented in this encounter Care Teams Occupational Health Coordinator Relationship Specialty Start Date End Date Yisel Marroquin MD [address] [id number] PCP - General 11/13/18 03/05/19 documented as of this encounter
--- OUTSIDE RECORDS SUMMARY | 2024-02-22 00:56 | XMS_ITS | Encounter Summary ---
Author Organization [facility] Address [facility] [address] Care Team Providers Care Theatrical Rigger Name Role Phone Yisel Marroquin MD Primary Care Provider [phone] Encounter Details Date Type Department Care Team (Late st Contact Info) Description 08/12/2014 Abstract [place] [place] Conversion Results [address] [place] [address] Apd Conversion, Flowsheet Provider, Social History Tobacco [...] Sign Reading Time Taken Comments Blood Pressure 138/86 08/12/2014 2:21 PM EST Sourced from APD Conversion Pulse - - Temperature - - Respiratory Rate - - Oxygen Saturation - - Inhaled Oxygen Concentration - - Weight 109.2 kg (240 lb 11.9 oz) 08/12/2014 2:21 PM EST Sourced from APD Conversion Height - - Body Mass Index 42.13 04/16/2014 5:05 PM EDT documented in this encounter Plan of Treatment Not on file documented as of this encounter Visit Diagnoses Not on filedocumented in this encounter Care Teams Theatrical Rigger Relationship Specialty Start Date End Date Yisel Marroquin MD [address] [phone] PCP - General 11/13/18 03/05/19 documented as of this encounter
--- OUTSIDE RECORDS SUMMARY | 2024-02-22 00:56 | XMS_ITS | Encounter Summary ---
Author Organization [facility] Address [facility] [place] [address] Care Team Providers Care Swatch Checker Name Role Phone Yisel Marroquin MD Primary Care Provider [phone] Encounter Details Date Type Department Care Team (Late st Contact Info) Description 05/01/2015 Abstract [place] [place] Conversion Results [address] [place] [address] Apd Conversion, Flowsheet Provider, Social History Tobacco [...] Sign Reading Time Taken Comments Blood Pressure 140/86 05/01/2015 9:45 AM EDT Sourced from APD Conversion Pulse - - Temperature - - Respiratory Rate - - Oxygen Saturation - - Inhaled Oxygen Concentration - - Weight 109 kg (240 lb 4.8 oz) 05/01/2015 9:45 AM EDT Sourced from APD Conversion Height 162 cm (5' 3.78) 05/01/2015 9:4 5 AM EDT Sourced from APD Conversion Body Mass Index 41.53 05/01/2015 9:45 AM EDT documented in this encounter Plan of Treatment Not on file documented as of this encounter Visit Diagnoses Not on filedocumented in this encounter Care Teams Swatch Checker Relationship Specialty Start Date End Date Yisel Marroquin MD [address] [place] [address] PCP - General 11/13/18 03/05/19 documented as of this encounter
--- OUTSIDE RECORDS SUMMARY | 2024-02-22 00:56 | XMS_ITS | Encounter Summary ---
[place] [address] Care Team Providers Care Sheriff Deputy Name Role Phone Yisel Marroquin MD Primary Care Provider [phone] Encounter Details Date Type Department Care Team (Late st Contact Info) Description 10/29/2015 Orders Only Radiology and Cardiology Results [address] [place] [phone] Apd Conversion, Results Provider, Social History Tobacco [...] Name Priority Date/Time Associated Diagnosis Comments VITAMIN B12 Routine 10/29/2015 documented in this encounter Results * (ABNORMAL) Vitamin B12 (10/29/2015) Vitamin B-12 >2000(Ext ) 211 - 366 [place] CONVERSION 10/29/2015 Results Provider Apd Conversion MD JASON ESTRELLA ORDERABLES [place]I GARCIA CONVERSION documented in this encounter Visit Diagnoses Not on filedocumented in this encounter Care Teams Sheriff Deputy Relationship Specialty Start Date End Date Yisel Marroquin MD [address] [place] [address] PCP - General 11/13/18 03/05/19 documented as of this encounter
--- OUTSIDE RECORDS SUMMARY | 2024-02-22 00:56 | XMS_ITS | Encounter Summary ---
Author Organization [facility] [place] [address] Care Team Providers Care Historical Interpreter Name Role Phone Hoang Castellanos APRN Primary Care Provider Reason for Visit * Reason Comments Medication Refill Encounter Details Date Type Department Care Team (Late st Contact Info) Description 02/04/2014 Refill Intermediate [place] [phone] Tamar Kay MD [facility] [place] [address] Social History Tobacco Use Types Packs/Day Years [...] documented as of this encounter Care Teams Historical Interpreter Relationship Specialty Start Date End Date Hoang Castellanos, SAM [address] [place] [address] PCP - General Family Medicine 03/12/20 documented as of this encounter
--- OUTSIDE RECORDS SUMMARY | 2024-02-22 00:56 | XMS_ITS | Encounter Summary ---
[place] [address] Care Team Providers Care Rn Registry Name Role Phone Yisel Marroquin MD Primary Care Provider [phone] Encounter Details Date Type Department Care Team (Late st Contact Info) Description 10/29/2015 Orders Only Radiology and Cardiology Results [address] [place] [phone] Apd Conversion, Results Provider, Social History Tobacco [...] Procedure Name Priority Date/Time Associated Diagnosis Comments FERRITIN Routine 10/29/2015 documented in this encounter Results * (ABNORMAL) Ferritin (10/29/2015) Ferritin 81(Externa l Lab) 8 - 388 [place]I [place]ORES CONVERSION 10/29/2015 Results Provider Apd Conversion MD JASON ESTRELLA ORDERABLES KORI GARCIA CONVERSION documented in this encounter Visit Diagnoses Not on filedocumented in this encounter Care Teams Rn Registry Relationship Specialty Start Date End Date Yisel Marroquin MD [address] [place] [address] PCP - General 11/13/18 03/05/19 documented as of this encounter
--- OUTSIDE RECORDS SUMMARY | 2024-02-22 00:56 | XMS_ITS | Encounter Summary ---
[place] [address] Care Team Providers Care Fast Food Sales Assistant Name Role Phone Aman Lawrence APRN Primary Care Provider [phone] [phone] Reason for Visit * Reason Comments Follow-up Bariatric Surgery Zachary suárez Encounter Details Date Type Department Care Team (Late st Contact Info) Description 07/04/2013 2:30 PM EST Follow-[place] [address] Sidra Del Toro VEGETABLE PICKER [facility] [place] [address] S/P gastric bypass (Primary Dx); Hypertension; Type 2 diabetes mellitus; CAD (coronary artery disease); Esophageal reflux Discharge Disposition: Home Social History Tobacco Use [...] Sign Reading Time Taken Comments Blood Pressure 142/70 07/04/2013 1:51 PM EST Pulse 50 07/04/2013 1:51 PM EST Temperature - - Respiratory Rate - - Oxygen Saturation - - Inhaled Oxygen Concentration - - Weight 107 kg (236 lb) 07/04/2013 1:51 PM EST Height 162.6 cm (5' 4) 07/04/2013 1:51 PM EST Body Mass Index 40.51 07/04/2013 1:51 PM EST documented in this encounter Patient Instructions * Patient Instructions* Meena Encarnacion, RD - 07/03/2013 4:36 PM EST [facility] Admin coordinator Rhonda: [phone] Dietitian: [phone] Surgeons/ nurse practitioner: [phone] Nurse line: [phone] Your excess body weight lost: 37.5% Testing: Labwork: To be determined based on recent lab work Ask Mr Lawrence about the timing of your next bone density scan Next visit: 1 year, sooner if you like ?? Next steps: we will discuss your case at our next team meeting. Vitamins: The following vitamins are recommended: 1. Multivitamin with minerals once daily 2. Vitamin B12 500 mcg by mouth once daily 3. Calcium citrate 600 mg with Vitamin D 400 units twice daily (600 mg in AM and 600 mg in PM- 2 pills twice a day) 4. Iron with Vitamin C, 50-66 mg once daily (take iron with vitamin C 250 mg to help with absorption) only if you have regular periods, iron deficiency or anemia. Nutrition recommendations: - Your Daily Goals: Continue to log your food, suggest bringing your food log to the next visit. Orif you prefer, sign up for free account on www.Koalify to log your food- it will count your calories and protein intake for you. 1,000-1,200 calories per day (300 calories per meal, 100 calories per snack, 1-2 snacks per day) 60 grams of protein per day (20 grams per meal)- aim for 3 oz (deck of card serving size) 48-64 oz of non-caloric and hydrating fluids per day (6-8, 8 oz cups) Cut out the toast at breakfast. Try to have more protein by eating a bigger serving of the mongolian yogurt. Other breakfast ideas: low fat/fat free cottage cheese with fruit and veggies Try to reduce your carbohydrate choices at meals- limit to one serving (about 1/2 cup in general) Do not drink with meals- pushes food through more quickly, can cause upset stomach Activity: Aim for 30 minutes of exercise daily, 5 days a week of both cardio and strength training exercises. Alcohol: should be used sparingly, no more than one drink per occasion. Alcohol is a source of empty calories and can cause ulcers and vitamin and mineral deficiencies. Studies have noted that there is an increased risk of alcohol dependence after bariatric surgery. Anti-inflammatory medications such as Advil, Aleve, Excedrin, Ibuprofen should be used sparingly after gastric bypass, since they increase the risk of ulcer. Call us: If you have concerns. If you have unexplained abdominal pain. if you see blood in your stool or vomit blood If you have prolonged vomiting Post Surgery Support Group: Our post surgery support group meets on the first Tuesday of every month from 1-2 PM at [facility] on Track group visits are held monthly Internet resources: www.ThermaSource www.Algorithmics www.Rocket Design Www.[employer] (cat Alonzo) https://www.[employer]ter[email or web address]/[facility] Books & Magazines: - Recipes for Life After Weight Loss Surgery by Suly Cruz - Shrink Yourself by Dr Juan Carlos Carlos - Nutrition Action Health Letter subscribe at [email or web address].org/nah/ documented in this encounter Progress Notes * Sidra Del Toro - 07/03/2013 9:11 PM EST Reason for visit: Follow up S/P partitioned, non-divided Genesis en Y gastric bypass on 05/12/00 Complications summary: Early unknown Late Question of staple line breakdown Visits summary: Compliance with follow up: less [...] Nl CMP A1c 6.1 Pending PCP [facility] Post op wt history: 222 pounds on 02/20/01, 238 pounds on 03/30/02, 242 pounds on 10/04/02, 255 pounds on 10/22/03, 263 pounds on 05/26/05, 222 pounds on 10/11/05 Date Evaluation Results 2010? Primary care 08/24/10 Ba swallow Although the initial images showed contrast filling a mildly dilated pouch, withtime of contrast was clearly seen within the klawock fundus indicating a leak. The site of the leak was not identified, but it is assumed to be relatively high. Contrast flowed freely through the anastomosis and no retrograde flow was seen in the afferent loop.There is mild dilatation in the region of the Genesis-en-Y anastomosis. never Colonoscopy ? Mammogram - Pap [facility] 11/07/02 DEXA normal Problem list: - Pre-operative Class IV obesity BMI 51.8: improved, S/P gastric bypass - Hypertension: current treatment with lisinopril and metoprolol - GERD: stable when takes famoditine - Type 2 diabetes: no current treatment. A1c in March 2013 was 6.1 - CAD: currently stable A. S/P hospitalization for [facility], ALF placement x 2 to 90% stenosis of proximal 1 LAD and 60% stenosis of proximal2 LAD on 04/16/13 - Hypothyroidism - Psychological issues: stable with regular counseling bekah Allen in [facility] a. anxiety and panic disorder b. history of depression c. Borderline Personality d/o d. history of self mutilation (burning skin)-denies since 2004 e. PTSD f. Multiple psychiatric hospitalizations, last 2005 g. schizophrenia - Polysubstance abuse in remission: reports no alcohol use in 17 years - History of bulimia: denies purging since 2005 - Nonepileptic seizures - Hidradenitis suppurativa: no current treatment - COPD - Tobacco dependence: Reports current use as 6 cigarettes a day, plus electronic cigarette, has patch at home, started at age 11-high of 2.5 packs a day. Her smokes, which adds difficulty to the situation. She is working with tobacco cessation group at [facility] Past surgical history: - Open Genesis en Y gastric bypass 05/12/00 - Panniculectomy 05/12/00 - Open cholecystectomy ~1991 - CHIP/BSO 1985 in [place] for ovarian cyst - Complete dental extractions 1998 - T &A Recent changes to health/ evaluations since last visit: she had cardiac stents placed in March.She did not have the upper endoscopy to rule out staple line breakdown that was requested in 2010. Subjective. Patient concerns at today's visit: she presents today because she reports that she was advised by acardiologist that she has fat around her heart and needs to lose weight. 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 Alcohol: none Dietary history: See dietitian note. Objective: General: 53 y.o. year-old female looks well. Strong odor of tobacco permeates exam room Abdomen: soft, non-tender. Upper midline scar well-healed, without evidence of hernia. Extremities: no edema Vital signs: Blood pressure 142/70, pulse 50, height 162.6 cm (5' 4), weight 107.049 kg (236 lb). Assessment: S/P remote non-divided gastric bypass, with loss of 37.5% of excess body weight. Plan: ?? Advised that revision surgery is associated with increased risks as well as poor weight loss, and is never done for weight gain. She was advised that her rodent exterminator weight loss is excellent. She isstable from a bariatric surgery perspective. A staple line breakdown has not been confirmed, since she did not have the upper endoscopy that was ordered at her last visit in 2010. ?? Her case will be discussed at the next team meeting ?? Advised to discuss the timing of her next bone density scan with Primary Beater Tender ?? Next BSP visit: 1 year ?? Next labwork: pending results of most recent lab results done via PCP, which was requested via [facility] ?? Additional vitamin and mineral supplement recommendations (*in addition to usual post surgery supplements, as noted below): pending lab results ?? dietary/ exercise recommendations per RD ?? [...] in agreement with the plan of care. BARIATRIC SURGERY PROGRAM RECOMMENDATIONS: Follow up: done at 4,12 and 18 months, 2 years and yearly thereafter. Adjustable gastric banding and high risk patients are evaluated on a more frequent basis. *Supplement recommendations: Multivitamin with minerals once a day, B12 1000 mcg sublingual twice aweek or oral B12 500 mcg once a day, calcium citrate 600 mg/400 units vitamin D twice a day, iron (ferrous fumarate, polysaccharide iron taken with vitamin C 250 mg once a day for menstruating females or those with DORIAN Labwork: CBC, ferritin, TIBC, iron, folate, Vitamins B1(thiamine), B12, D (25 hydroxy only), IntactPTH and comprehensive metabolic profile done at 4 month and yearly visits. If labwork is done by the primary post anesthesia care unit nurse: please send a copy to the Bariatric Surgery Program, General Surgery Clinic, [facility], attention Sidra Del Toro APRN. Plastic Surgery Clinic evaluation for skin redundancy: done no sooner than 18 months post-operatively when weight loss has been stable for a few months. In general, patients with a BMI >30-35 are not considered candidates due to increased risk of complications unless there are compelling health concern Questions regarding [facility] Bariat[facility] Surgery Program patients: please call Jorge Del Toro APRN at [phone] or [phone] beeper [phone]. * Meena Encarnacion, RD - 07/03/2013 4:30 PM EST Bariatric Surgery Program Nutrition Progress Note Encounter Type: follow up SUBJECTIVE: Topics Discussed/Patient Concerns: ?? Has quit smoking date on 07/09/13, has patch. Also using electronic cigarrettes now + 6 cigarettes per day now. Working with tobacco cessation program. Aware has to be tobacco free for possible revision surgery, which is what brings her here today. Reports she needs to lose weight to decrease fat around my heart. ?? Some constipation- has miralax, but finds that only needs about once a month. OBJECTIVE: S/P non-divided RNY gastric bypass on 05/12/00 Weight History: Date WT HT 61 BMI Comments 06/08/99 299 %EWL 51.8 Pre-op weight 08/13/10 248 30 42.5 11/11/10 237 37.5 40.7 07/04/13 236 37.5 40.5 13 Years post-op Reported Vitamin and Mineral Supplementation: Type Type Frequency dose Comments Calcium ? type 1 pill daily B12 pill ?500mcg dose 1-2 times per week Multivitamin 1 pill daily Iron fumarate ? 40mg dose daily Vitamin C pill 500mg daily Folic acid Ran out, needs to refill Daily Oral Intake: Measures portions, keeps a food log since March. Did not bring to visit. Breakfast 8am: 1/2 cup cooked old fashioned oatmeal, 1/2 cup mongolian yogurt w fruit, 1/2 cup skim milk, 1/2 toast w ICBINB AM Snack none Lunch 12pm: 1/2 turkey sandwich (1 slice turkey), salad, 1/2 cup veggie soup, sugar free pudding PM Snack 2pm: fruit/whole wheat crackers w hummus or fruit/cucumber or tomato Dinner 5pm: chicken (3oz breast), 2 cups veggies, 1/2 cup peaches, salad w low fat hungarian HS Snack 7pm: 1/2 cup sf pudding or sherbet Protein/ grams per day: 55grams/day Hydrating Fluids: 80oz Soda: none ETOH: none Caffeine: none Meals: 3/day. ?? Feels full/satisfied after eating [x]Yes []No ?? Feels hungry []never [x]sometimes []most of the time [] always ?? Drinks with meals []Yes [x]No ?? Has had dumping syndrome [x]Yes []No Foods/Symptoms: sweets- cramping, diarrhea ?? Practices portion control [x]Yes []No ?? Spends at least 20 minutes eating each meal [x]Yes []No ?? In the past month, pt has vomited/regurgitated denies Food Allergies/Intolerances: Red Meat hurts her stomach Pasta, rice Exercise: Had been going to cardiac rehab, but finished, so walking inside at [facility] or at [facility] [employer] where she works daily most days for an hour. Also uses therabands twice a day most of the time. ASSESSMENT: Inadequate protein intake r/t small portions of protein eaten and more carbohydrate foods chosen asevidenced by diet recall. Patient is meeting fluid needs, appears to be compliant with supplements,other than need to make sure she is taking the correct type of calcium and increasing to twice daily. Did reinforce methods to increase protein, while still eating in a heart healthy manner. Also setgoal to track food using online program, such as [employer] [employer] fitness pal as patient reports she is using a paper log, though did not bring it to visit for review. Summary of Weight Loss: Patient's percent excess weight loss is 37.5% which is below the expected post- op bariatric surgeryrange. NUTRITION INTERVENTION & MONITORING: ?? Provided support/encouragement and reinforced importance of meeting nutritional goals. ?? Reviewed nutrition and vitamin and mineral supplement recommendations (see patient instructions). ?? Written recommendations provided. Patient agreed with these and verbalized adequate understanding ?? Evaluation by nurse practitioner today ?? Provided One Year and Beyond (revised 05/2013) documented in this encounter Plan of Treatment Not on file documented as of this encounter Visit Diagnoses Diagnosis S/P gastric bypass- Primary Bariatric surgery status Hypertension Unspecified essential hypertension Type 2 diabetes mellitus Type II or unspecified type diabetes mellitus without mention of complication, not stated as uncontrolled CAD (coronary artery disease) Coronary atherosclerosis of unspecified type of vessel, [place] or graft Esophageal reflux documented in this encounter Care Teams Fast Food Sales Assistant Relationship Specialty Start Date End Date Lawrence, Aman A, VEGETABLE PICKER [address] [place] [address] PCP - General 06/16/10 06/27/18 documented as of this encounter
--- OUTSIDE RECORDS SUMMARY | 2024-02-22 00:56 | XMS_ITS | Encounter Summary ---
Author Organization [facility] [place] [address] Care Team Providers Care Salesperson Floor Coverings Name Role Phone Aman Perla APRN Primary Care Provider [phone] Encounter Details Date Type Department Care Team (Latest Contact Info) Description 11/20/2015 Multidisciplinary Ca re Committee [place] [address] Sidra Del Toro, [facility] [place] [address] Social History Tobacco Use Types Packs/Day Years [...] Progress Notes * Sidra Del Toro - 11/20/2015 6:07 PM EDT BARIATRIC SURGERY PROGRAM SURGICAL TEAM CASE REVIEW Jeannie Rico is a 55 y.o. year-old female. Her primary care physician is AMAN PERLA APRN: Bariatric Surgery Program introductory meeting attendance: no Evaluation by a member of the [facility] Bariatric Surgery Program previously: + Case presentation by: Dr Williamson Staff present at today's meeting: Dee Wright MD, Urology Nurse, Skinny Gomez MD, Meena Pena MD, Rajendra Williamson MD, Tamar Guerra, MS RD, Sidra Del Toro APRN, Niecy Darden RDN Reason for presentation: GGF post non-divided RNY GB Patient Active Problem List Diagnosis Code ??? [...] gastric bypass in 1995, prior VBG E66.9 Past Surgical History Procedure Laterality Date ??? [...] GI ENDOSCOPY performed by DEE WRIGHT at [facility] ??? Abdomen surgery ??? Hysterectomy Plan of care: Smoking cessation, EGD on 12/02, may be candidate for apollo overstitch documented in this encounter Plan of Treatment Not on file documented as of this encounter Visit Diagnoses Not on filedocumented in this encounter Care Teams Salesperson Floor Coverings Relationship Specialty Start Date End [place] [address] PCP - General 06/16/10 06/27/18 documented as of this encounter
--- OUTSIDE RECORDS SUMMARY | 2024-02-22 00:56 | XMS_ITS | Encounter Summary ---
Author Organization [facility] Address [facility] [place] [address] Care Team Providers Care Reclamation Supervisor Name Role Phone Aman Lawrence APRN Primary Care Provider [phone] Reason for Visit * Reason Comments Coronary Artery Disease Encounter Details Date Type Department Care Team (Late st Contact Info) Description 01/07/2014 7:40 AM EDT Follow-Up Cardiology at [address] [address] Freddy Mejias MD [facility] [place] [address] CAD (coronary artery disease) (Primary Dx); Smoking Discharge Disposition: Home Social History Tobacco Use [...] Sign Reading Time Taken Comments Blood Pressure 144/82 01/07/2014 7:55 AM EDT Pulse 48 01/07/2014 7:55 AM EDT Temperature - - Respiratory Rate - - Oxygen Saturation 97% 01/07/2014 7:5 5 AM EDT at rest, room air Inhaled Oxygen Concentration - - Weight 105.2 kg (232 lb) 01/07/2014 7:5 5 AM EDT Height 162.6 cm (5' 4) 01/07/2014 7:55 AM EDT Body Mass Index 39.82 01/07/2014 7:55 AM EDT documented in this encounter Patient Instructions * Patient Instructions* Freddy Mejias MD - 01/07/2014 8:19 AM EDT 1) I would like to decrease the dose of your Toprol XL from 25 mg once a day to 12.5 mg once a day.That will mean splitting a 25 mg tablet in half and taking only half a tablet once a day. 2) On April 24, 2014 you can STOP taking your PLAVIX. 3) Continue your efforts at weight reduction and exercising. 4) Stop smoking NOW. 5) I will see you back in 9 months. documented in this encounter Progress Notes * Freddy Mejias MD - 01/05/2014 12:02 PM EDT SUBJECTIVE: 53 year old woman with known CAD s/p recent stenting of her LAD. Her cardiac catheterization showed a 90% stenosis of the proximal LAD and a 70% stenosis of the mid LAD. She received ALF x 2. EF was 60% by Echo. Last seen by me 9 months ago. Patient Active Problem List Diagnosis ??? CAD S/P percutaneous coronary angioplasty ??? Hypertension ??? Smokes cigarettes ??? Hypothyroidism ??? GERD (gastroesophageal reflux disease) ??? Schizophrenia ??? Anxiety ??? Depression ??? Post traumatic stress disorder (PTSD) ??? Hidradenitis suppurativa ??? Obesity ??? Chronic pain ??? Cervicalgia ??? Lumbago Past Surgical History Procedure Date ??? Created by interface a carotid bypass Procedure Date: Unknown ??? Created by interface cholecystectomy Procedure Date: Unknown ??? Created by interface Entered not Verified Procedure Date: 07/08/2010 ??? Created by interface hysterectomy Procedure Date: Unknown ??? Created by interface tonsillectomy Procedure Date: Unknown ??? Upper gi endoscopy, exam 12/04/2010 UPPER GI ENDOSCOPY performed by DEE WRIGHT at [facility] ??? Abdomen surgery ??? Hysterectomy No family history on file. History Social History ??? Marital Status: Spouse Name: N/A Number of Children: N/A ??? Years of Education: N/A Social History Main Topics ??? Smoking status: Current Every Day Smoker -- 2.0 packs/day ??? Smokeless tobacco: Never Used Comment: today is quit day 05/10/13 ??? Alcohol Use: No ??? Drug Use: Not on file ??? Sexually Active: Not on file Other Topics Concern ??? Not on file Social History Narrative ??? No narrative on file Social history: , no children. Lives in [place]. 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 Smoking: Active smoker, 2ppd Alcohol: Prior alcoholic, in remission for 16 years Illicits: Denies Significant family history: + Family history of CAD Current Outpatient Prescriptions Medication Sig Dispense Refill ??? simvastatin (ZOCOR) 40 mg tablet Take [...] minute time period 90 tablet 3 ??? traMADol (ULTRAM) 50 mg tablet Take 50 mg by mouth every 6 hours as needed. ??? methocarbamol (ROBAXIN) 500 mg tablet Take 500 mg by mouth 4 times daily. ??? hydroCODone-acetaminophen (VICODIN) 5-500 mg per tablet Take 1 tablet by mouth as needed. For flare up pain only ??? fluticasone-salmeterol (ADVAIR DISKUS) 500-50 mcg/dose diskus inhaler 1 Disk(s), Inh, Twice daily ??? levothyroxine (SYNTHROID) 50 mcg tablet 50MCG, PO, Once daily ??? b complex vitamins (B COMPLEX-VITAMIN B12) tablet ??? cetmhfpceaza-kdzt-ynjjtetp (COMPLETE MULTIVITAMIN) Tab tablet 1 Tablet(s), PO, Once daily ??? calcium citrate-vitamin D (CITRACAL+D) 315-200 mg-unit per tablet 2 Tablet(s), PO, Twice daily ??? ergocalciferol (VITAMIN D) 50,000 unit capsule [id number], PO, TWICE a week Allergies Allergen Reactions ??? Sumatriptan Hives ??? Oxycodone Other (See Comments) drunk feeling, dizzy ??? Oxycodone-Acetaminophen Other (See Comments) dizziness, feels drunk ??? Chantix (Varenicline) psychotic HPI: Last seen 9 months ago. Has done well. Has used 3 SL NTG over the last 9 months. None at rest.None recently. Taking all her medications and notes no side effects. Has continued to slowly lose weight. Walking 1 mile per day including up a hill. Being seen by Tom GR every 3 months. He is following her lipids, blood glucose, renal function, etc. Unfortunately, smoking 1 PPD. also smokes. Has tried numerous aids. Plans to try stopping smoking this summer. ROS: The patient denies: General: Unusual fatigue, [...] Healthy appearing, looking stated age Blood pressure 144/82, pulse 48, height 162.6 cm (5' 4), weight 105.235 kg (232 lb), SpO2 97.00%. HEENT: Normocephalic, anicteric, pupils equal, round, reactive [...] clubbing, cyanosis, or edema Neuro: Grossly intact ASSESSMENT AND PLAN: No evidence of concerning active ischemia, ventricular or valvular dysfunctionor concerning arrhythmias. On guideline therapy. Actively engaging in risk factor modification. Have asked her to decrease her Toprol XL to 12.5 mg QD given low resting heart rate. Can stop her Plavix 04/24/14. Must stop smoking. Offered her assistance from our smoking cessation group. She wants to try on her own. Encouraged her to continue efforts at weight loss and exercise. Will ask for a copy of her recent blood work. Time was spent in a face to face conversation with the patient (and accompanying family members, ifpresent) regarding my impressions and recommendations and providing counseling. All questions were answered to the patient's (and accompanying family's, if present) satisfaction. I will plan to see the patient back in follow-up in 9 months. documented in this encounter Plan of Treatment Not on file documented as of this encounter Visit Diagnoses Diagnosis CAD (coronary artery disease)- Primary Coronary atherosclerosis of unspecified type of vessel, [place] or graft Smoking Tobacco use disorder documented in this encounter Care Teams Reclamation Supervisor Relationship Specialty Start Date End Date Aman Lawrence APRN [address] [place] [address] PCP - General 06/16/10 06/27/18 documented as of this encounter
--- OUTSIDE RECORDS SUMMARY | 2024-02-22 00:56 | XMS_ITS | Encounter Summary ---
[place] [address] Care Team Providers Care Statistical Secretary Name Role Phone Aman Lawrence APRN Primary Care Provider [phone] Encounter Details Date Type Department Care Team (Late st Contact Info) Description 03/11/2014 2:50 PM EDT - 03/11/2014 11:59 PM EDT Hospital Encounter [place] [id number] Kidney stone Social History Tobacco Use Types Packs/Day Years [...] time period 90 tablet 3 04/17/2013 02/07/2019 traMADol (ULTRAM) 50 mg tablet Take 50 mg by mouth every 6 hours as needed. 12/03/2015 methocarbamol (ROBAXIN) 500 mg tablet Take 500 mg by mouth 4 times daily. 02/07/2019 fluticasone-salmeterol (ADVAIR DISKUS) 500-50 mcg/dose diskus inhaler 1 Disk(s), Inh, Twice daily 09/23/2010 06/01/2019 levothyroxine (SYNTHROID) 50 mcg tablet 50MCG, PO, Once daily 09/23/2010 06/01/2019 b complex vitamins (B COMPLEX-VITAMIN B12) tablet 09/23/2010 11/19/2016 vpjaglnzwbcs-eyhn-sumqt als (COMPLETE MULTIVITAMIN) Tab tablet 1 Tablet(s), PO, Once daily 09/23/2010 11/19/2016 calcium citrate-vitamin D (CITRACAL+D) 315-200 mg-unit per tablet 2 Tablet(s), PO, Twice daily 09/23/2010 11/19/2016 ergocalciferol (VITAMIN D) 50,000 unit capsule [id number], PO, TWICE a week 09/23/2010 11/19/2016 documented as of this encounter Plan of Treatment Not on file documented as of this encounter Procedures Procedure Name Priority Date/Time Associated Diagnosis Comments US RETROPERITONEAL COMPLETE Routine 03/11/2014 4:02 PM EDT Kidney stone documented in this encounter Results * US retroperitoneal complete (03/11/2014 4:02 PM EDT) Anatomical Region Laterality Modality Abdomen Ultrasound 03/11/2014 4:02 PM EDT Narrative 03/11/2014 4:23 PM EDT Renal ?(Signed Final 03/11/2014 04:10 ? pm) Patient Info ID #: ? [id number] ?: ??[birth year] (53 yrs) Name: ? YVONNE RICO ?Visit Date: 03/11/2014 03:57 pm Performed By Performed By: ?Elsa Guerra RDMS Associate: ? Wilfrido Stuart DO Attending: ? Christiano SLADE, Elba Carbajal Referred By: ? HUMBERTO BARAJAS MD Service(s) Provided ??URETRO - Retroperitoneal Complete - [id number] ? [id number] Indications ??kidney stone Right Kidney Size (cm) ?L: ??12.5 Cortical Thickness: ?Normal Cortical Echogenicity: ?? Normal Hydronephrosis: ?No sonographic evidence Left Kidney Size (cm) ?L: ??11.6 Cortical Thickness: ?Normal Cortical Echogenicity: ?? Normal Hydronephrosis: ?No sonographic evidence Urinary Bladder Right Urinary Jet: Visualized Left Urinary Jet: ??Visualized Pre-void (cm) ? L: ??4.6 ? AP: ??5.2 ? TV: ??8.2 Vol (ml): ?102.7 Comment: ?Partially distended, normal contour Impression Ultrasound - ??Retroperitoneal Complete - Summary Normal renal and bladder ultrasound. I ??viewed the images and agree with the above interpretation. ? Elba Alvarado MD Electronically Signed Final Report ?? 03/11/2014 04:10 pm Film and interpretation reviewed by the attending Procedure Note Elba Alvarado MD - 03/11/2014 Renal (Signed Final 03/11/2014 04:10 pm) Patient Info ID #: [id number] : 60 (53 yrs) Name: YVONNE RICO Visit Date: 03/11/2014 03:57 pm Performed By Performed By: Elsa Guerra RDMS Associate: Wilfrido Stuart DO Attending: Elba Alvarado MD Referred By: HUMBERTO BARAJAS MD Service(s) Provided URETRO - Retroperitoneal Complete - [id number] Indications kidney stone Right Kidney Size (cm) L: 12.5 Cortical Thickness: Normal Cortical Echogenicity: Normal Hydronephrosis: No sonographic evidence Left Kidney Size (cm) L: 11.6 Cortical Thickness: Normal Cortical Echogenicity: Normal Hydronephrosis: No sonographic evidence Urinary Bladder Right Urinary Jet: Visualized Left Urinary Jet: Visualized Pre-void (cm) L: 4.6 AP: 5.2 TV: 8.2 Vol (ml): 102.7 Comment: Partially distended, normal contour Impression Ultrasound - Retroperitoneal Complete - Summary Normal renal and bladder ultrasound. I viewed the images and agree with the above interpretation. Elba Alvarado MD Electronically Signed Final Report 03/11/2014 04:10 pm Film and interpretation reviewed by the attending Humberto Barajas MD IMG US GEN ORDERABLE S documented in this encounter Visit Diagnoses Diagnosis Kidney stone Calculus of kidney documented in this encounter Care Teams Statistical Secretary Relationship Specialty Start Date End Date mAan Lawrence APRN [address] [place] [address] PCP - General 06/16/10 06/27/18 documented as of this encounter
--- OUTSIDE RECORDS SUMMARY | 2024-02-22 00:56 | XMS_ITS | Encounter Summary ---
Author Organization [facility] Address [facility] [place] [address] Care Team Providers Care Power Regulator Name Role Phone Hoang Castellanos APRN Primary Care Provider Reason for Visit * Reason Comments Medication Refill Encounter Details Date Type Department Care Team (Late st Contact Info) Description 07/12/2014 Refill [place] [address] Tamar Kay MD [facility] GENERAL [place] [address] Social History Tobacco Use Types Packs/Day Years [...] documented as of this encounter Care Teams Power Regulator Relationship Specialty Start Date End Date Hoang Castellanos, SAM [address] [place] [address] PCP - General Family Medicine 03/12/20 documented as of this encounter
--- OUTSIDE RECORDS SUMMARY | 2024-02-22 00:56 | XMS_ITS | Encounter Summary ---
Author Organization [facility] [place] [address] Care Team Providers Care Plate Preparer Name Role Phone Aman Lawrence APRN Primary Care Provider [phone] Encounter Details Date Type Department Care Team (Late st Contact Info) Description 10/10/2015 Telephone [place] [address] Tamar Guerra, RD [facility] [place] [address] Social History Tobacco Use Types Packs/Day Years [...] Miscellaneous Notes * Telephone Encounter - Tamar Guerra, RD - 10/10/2015 9:12 AM EDT Jeannie called today to follow-up regarding her recent intolerance to solid food. She states she purchased some of the foods I suggested and is now feeling better. However, she continues to eat mainly soft foods. Typical Day is: NSA [place] Instant Breakfast in the AM and PM, 1 yogurt, Cottage cheese with peaches or fruit cup, Slim Fast High Protein, and chicken broth or bouillon. States the additional Prilosec is helping. Pt states if she needs an upper endoscopy she would need a mental health provider in the waiting room with her but she would be OK going back for the procedure on her own. Pt would arrange to have someone with her. Plan: Pt to continue to advance diet as tolerated. Pt to call if symptoms change. documented in this encounter Plan of Treatment Not on file documented as of this encounter Visit Diagnoses Not on filedocumented in this encounter Care Teams Plate Preparer Relationship Specialty Start Date End Date Aman Lawrence APRN [address] [place] [address] PCP - General 06/16/10 06/27/18 documented as of this encounter
--- OUTSIDE RECORDS SUMMARY | 2024-02-22 00:56 | XMS_ITS | Encounter Summary ---
Author [facility] [place] [address] Care Team Providers Care Dock Coordinator Name Role Phone Aman Lawrence APRN Primary Care Provider [phone] Encounter Details Date Type Department Care Team (Late st Contact Info) Description 02/10/2014 [place] [address] Humberto Cerda MD [facility] [place] [address] Social History Tobacco Use Types Packs/Day Years [...] Associated Diagnosis Comments FILM LIBRARY STORAGE ONLY DX ABDOMEN Routine 02/10/2014 4:40 PM EDT documented in this encounter Results * Film Library- Storage only DX Abdomen (02/10/2014 4:40 PM EDT) Anatomical Region Laterality Modality Other 02/10/2014 4:40 PM EDT Narrative 02/22/2014 4:51 PM EDT This is a Non-reportable exam Procedure Note 02/22/2014 This is a Non-reportable exam Humberto Cerda MD [facility] FILM LIBRARY ORD ERABLES documented in this encounter Visit Diagnoses Not on filedocumented in this encounter Care Teams Dock Coordinator Relationship Specialty Start Date End Date Aman Lawrence APRN [address] [place] [address] PCP - General 06/16/10 06/27/18 documented as of this encounter
--- OUTSIDE RECORDS SUMMARY | 2024-02-22 00:56 | XMS_ITS | Encounter Summary ---
Author Organization [facility] Address [facility] [place] [address] Care Team Providers Care Computer Science Intern Name Role Phone Yisel Marroquin MD Primary Care Provider [phone] Encounter Details Date Type Department Care Team (Late st Contact Info) Description 08/07/2014 Abstract [place]rystal Conversion Results [address] [place] [address] Apd Conversion, Flowsheet Provider, Social History Tobacco [...] Sign Reading Time Taken Comments Blood Pressure 136/86 08/07/2014 8:24 AM EST Sourced from APD Conversion Pulse - - Temperature - - Respiratory Rate - - Oxygen Saturation - - Inhaled Oxygen Concentration - - Weight 111 kg (244 lb 11.4 oz) 08/07/2014 8:24 AM EST Sourced from APD Conversion Height - - Body Mass Index 42.82 04/16/2014 5:05 PM EDT documented in this encounter Plan of Treatment Not on file documented as of this encounter Visit Diagnoses Not on filedocumented in this encounter Care Teams Computer Science Intern Relationship Specialty Start Date End Date Yisel Marroquin MD [address] [place] [address] PCP - General 11/13/18 03/05/19 documented as of this encounter
--- OUTSIDE RECORDS SUMMARY | 2024-02-22 00:56 | XMS_ITS | Encounter Summary ---
Author Organization [facility] Address [facility] [place] [address] Care Team Providers Care Chemical Operations And Training Name Role Phone Yisel Marroquin MD Primary Care Provider [phone] Encounter Details Date Type Department Care Team (Late st Contact Info) Description 01/28/2015 Abstract [place] Conversion Results [address] [place] [address] Apd Conversion, Flowsheet Provider, Social History Tobacco [...] Sign Reading Time Taken Comments Blood Pressure 144/84 01/28/2015 1:48 PM EDT Sourced from APD Conversion Pulse - - Temperature - - Respiratory Rate - - Oxygen Saturation - - Inhaled Oxygen Concentration - - Weight 110 kg (242 lb 8.1 oz) 01/28/2015 1:31 PM EDT Sourced from APD Conversion Height - - Body Mass Index 42.44 04/16/2014 5:05 PM EDT documented in this encounter Plan of Treatment Not on file documented as of this encounter Visit Diagnoses Not on filedocumented in this encounter Care Teams Chemical Operations And Training Relationship Specialty Start Date End Date Yisel Marroquin MD [address] [id number] PCP - General 11/13/18 03/05/19 documented as of this encounter
--- OUTSIDE RECORDS SUMMARY | 2024-02-22 00:56 | XMS_ITS | Encounter Summary ---
[place] [address] Care Team Providers Care Poly Operator Name Role Phone Yisel Marroquin MD Primary Care Provider [phone] Encounter Details Date Type Department Care Team (Late st Contact Info) Description 12/19/2013 Orders Only Radiology and Cardiology Results [address] [place] [id number] Apd Conversion, Results Provider, Social History Tobacco [...] Priority Date/Time Associated Diagnosis Comments TSH Routine 12/19/2013 documented in this encounter Results * (ABNORMAL) TSH (12/19/2013) TSH 2.810(Exte rnal Lab) 0.358 - 3.74 [facility] [place] CONVERSION 12/19/2013 Results Provider Apd Conversion MD JASON ESTRELLA ORDERABLES KORI [place] CONVERSION documented in this encounter Visit Diagnoses Not on filedocumented in this encounter Care Teams Poly Operator Relationship Specialty Start Date End Date Yisel Marroquin MD [address] [place] [address] PCP - General 11/13/18 03/05/19 documented as of this encounter
--- OUTSIDE RECORDS SUMMARY | 2024-02-22 00:56 | XMS_ITS | Encounter Summary ---
Author Organization [place] [address] Care Team Providers Care Soft Metals Engraver Hand Name Role Phone Aman Lawrence APRN Primary Care Provider [phone] Encounter Details Date Type Department Care Team (Late st Contact Info) Description 10/02/2015 Telephone [place] [address] Tamar Guerra, RD [facility] [place] [address] Social History Tobacco Use Types Packs/Day Years [...] Telephone Encounter - Tamar Guerra, RD - 10/02/2015 1:21 PM EST Jeannie called today because she is having difficulty tolerating solid foods. She is s/p partitioned,non-divided Genesis en Y gastric bypass in 1999. States ~ 3 weeks ago she felt a discomfort/stretching in her stomach while she was cooking chicken.She tried to eat the chicken and was not able to tolerate it. Since that time she has been able to tolerate less and less solid food. Reports she is now able to eat applesauce, cottage cheese (1-2 Tbs), randee cracker (eats one square at a time). Yesterday's Intake: 2 NSA CIBs made with low fat milk, 1 original Ensure, and a hard boiled egg. She is able to drink water. This morning she was able to eat dry toast and applesauce. 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 States her PCP increased her omeprazole to 80 mg and that has helped some. Pt reports smoking about 15-16 cigarettes per day. States she is looking into wholistic alternatives for quitting tobacco. Bowels: Takes Miralax for constipation. She takes it for 3 days and then is OK for 1-2 weeks. States she called for an appt in GI today but they cannot fit her in until January 2016. Assessment: pt with decreasing tolerance to solid food. Concerned with meeting nutritional needs. Reviewed goal of 60 grams protein and a minimum of 48 oz. Fluid daily. 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 Plan: Rec. Continue with NSA CIB 3 x daily, providing ~40 g protein. Suggested d/c Ensure and try Atkins Shakes, Low CHO Slim Fast or Boost Glucose Control (all available at [email or web address]) to aid in meeting protein needs. Continue to try solid food as tolerated: [place] Yogurt, cottage cheese, apple sauce, hard boiled eggs, toast, etc. Goal of 48+ oz. Water daily. Will f/u with program CHURCH WORKER for next steps. documented in this encounter Plan of Treatment Not on file documented as of this encounter Visit Diagnoses Not on filedocumented in this encounter Care Teams Soft Metals Engraver Hand Relationship Specialty Start Date End Date Aman Lawrence [place] [place] [address] PCP - General 06/16/10 06/27/18 documented as of this encounter
--- OUTSIDE RECORDS SUMMARY | 2024-02-22 00:56 | XMS_ITS | Encounter Summary ---
Author Organization [facility] Address [facility] [place] [address] Care Team Providers Care Art History Professor Name Role Phone Yisel Marroquin MD Primary Care Provider [phone] Encounter Details Date Type Department Care Team (Late st Contact Info) Description 01/14/2014 Abstract [place] Conversion Results [address] [place] [address] Apd Conversion, Flowsheet Provider, Social History Tobacco [...] Sign Reading Time Taken Comments Blood Pressure 142/84 01/14/2014 9:39 AM EDT Sourced from APD Conversion Pulse - - Temperature - - Respiratory Rate - - Oxygen Saturation - - Inhaled Oxygen Concentration - - Weight 106 kg (233 lb 11 oz) 01/14/2014 9:39 AM EDT Sourced from APD Conversion Height 161 cm (5' 3.39) 01/14/2014 9:3 9 AM EDT Sourced from APD Conversion Body Mass Index 40.89 01/14/2014 9:39 AM EDT documented in this encounter Plan of Treatment Not on file documented as of this encounter Visit Diagnoses Not on filedocumented in this encounter Care Teams Art History Professor Relationship Specialty Start Date End Date Yisel Marroquin MD [address] [place] [address] PCP - General 11/13/18 03/05/19 documented as of this encounter
--- OUTSIDE RECORDS SUMMARY | 2024-02-22 00:56 | XMS_ITS | Encounter Summary ---
Author Organization [facility] [place] [address] Care Team Providers Care Service Dog Trainer Name Role Phone Aman Lawrence APRN Primary Care Provider [phone] Encounter Details Date Type Department Care Team (Late st Contact Info) Description 03/11/2014 4:00 PM EDT [place] [id number] CLINIC, Humberto Bah MD [facility] [place] [address] Kidney stone (Primary Dx) Discharge Disposition: Home Social History Tobacco Use [...] Sign Reading Time Taken Comments Blood Pressure 144/80 03/11/2014 4:16 PM EDT Pulse 60 03/11/2014 4:16 PM EDT Temperature - - Respiratory Rate - - Oxygen Saturation - - Inhaled Oxygen Concentration - - Weight 107 kg (236 lb) 03/11/2014 4:16 PM EDT Height 158.8 cm (5' 2.5) 03/11/2014 4:16 PM EDT Body Mass Index 42.48 03/11/2014 4:16 PM EDT documented in this encounter Progress Notes * Humberto Cerda MD - 03/11/2014 5:25 PM EDT 53F h/o recent kidney stone who presents for f/u. She was seen in the [facility] ED on 02/11/14 with left flank pain. CT demonstrated a 2.5cm left UPJ stone and moderate hydronephrosis. We do not have the images. She was given flomax and pain medication. Nofevers or chills. Advised to strain her urine. Seen 02/22/14. Agreed to continue w/ flomax and trial of passage. Had intermittent left flank pain atthat time. Today feels well. No recent pain. No change in voiding habits. Renal US today shows no stones or hydronephrosis. Past Medical History Diagnosis Date ??? Hypertension ??? Diabetes mellitus ??? Depression ??? Thyroid disease Chronic pain CAD s/p angioplasty on plavix/aspirin Tobacco Schizophrenia Obesity GERD Past Surgical History Procedure Date ??? Created by interface a carotid bypass Procedure Date: Unknown ??? Created by interface cholecystectomy Procedure Date: Unknown ??? Created by interface Entered not Verified Procedure Date: 07/08/2010 ??? Created by interface hysterectomy Procedure Date: Unknown ??? Created by interface tonsillectomy Procedure Date: Unknown ??? Upper gi endoscopy, exam 12/04/2010 UPPER GI ENDOSCOPY performed by DEE WRIGHT at [facility] ENDOSCOPY ??? Abdomen surgery ??? Hysterectomy Gastric bypass Current Outpatient Prescriptions on File Prior to Visit Medication Sig Dispense Refill ??? simvastatin (ZOCOR) [...] complex vitamins (B COMPLEX-VITAMIN B12) tablet ??? nvysaayagaio-dthb-ajjmugsy (COMPLETE MULTIVITAMIN) Tab tablet 1 Tablet(s), PO, Once daily ??? calcium citrate-vitamin D (CITRACAL+D) 315-200 mg-unit per tablet 2 Tablet(s), PO, Twice daily ??? ergocalciferol (VITAMIN D) 50,000 unit capsule [id number], PO, TWICE a week Allergies Allergen Reactions ??? Sumatriptan Hives ??? Oxycodone Other (See Comments) drunk feeling, dizzy ??? Oxycodone-Acetaminophen Other (See Comments) dizziness, feels drunk ??? Chantix (Varenicline) psychotic History Social History ??? Marital Status: Spouse Name: N/A Number of Children: N/A ??? Years of Education: N/A Occupational History ??? Not on file. Social History Main Topics ??? Smoking status: Current Every Day Smoker -- 2.0 packs/day ??? Smokeless tobacco: Never Used Comment: today is quit day 05/10/13 ??? Alcohol Use: No ??? Drug Use: Not on file ??? Sexually Active: Not on file Other Topics Concern ??? Not on file Social History Narrative ??? No narrative on file FH: neg for stones Physical Exam S NTND No CVAT Well appearing A: H/o small UPJ stone, passed by symptoms and ultrasound P: No indication for intervention Counseled on dietary changes to reduce stone risk Alert me for a significant change in sx RTC in 6 months w/ renal US prior Her questions were answered in detail. 16 of 17 min spent in counseling and coordination of care. documented in this encounter Plan of Treatment Not on file documented as of this encounter Visit Diagnoses Diagnosis Kidney stone- Primary Calculus of kidney documented in this encounter Care Teams Service Dog Trainer Relationship Specialty Start Date End Date Aman Lawrence [place] [place] [address] PCP - General 06/16/10 06/27/18 documented as of this encounter
--- OUTSIDE RECORDS SUMMARY | 2024-02-22 00:56 | XMS_ITS | Encounter Summary ---
Author Organization [facility] [place] [address] Care Team Providers Care Medical Technologist Prn Name Role Phone Aman Lawrence APRN Primary Care Provider [phone] Encounter Details Date Type Department Care Team (Late st Contact Info) Description 02/10/2014 [place] [address] Humberto Cerda MD [facility] [place] [address] Social History Tobacco Use Types Packs/Day Years [...] STORAGE ONLY CT ABDOMEN AND PELVIS Routine 02/10/2014 4:45 PM EDT documented in this encounter Results * Film Library- Storage only CT abdomen & pelvis (02/10/2014 4:45 PM EDT) Anatomical Region Laterality Modality Abdomen, Pelvis Other 02/10/2014 4:45 PM EDT Narrative 02/22/2014 4:56 PM EDT This is a Non-reportable exam Procedure Note 02/22/2014 This is a Non-reportable exam Humberto Cerda MD [facility] FILM LIBRARY ORD ERABLES documented in this encounter Visit Diagnoses Not on filedocumented in this encounter Care Teams Medical Technologist Prn Relationship Specialty Start Date End Date Aman Lawrence APRN [address] [place] [address] PCP - General 06/16/10 06/27/18 documented as of this encounter
--- OUTSIDE RECORDS SUMMARY | 2024-02-22 00:56 | XMS_ITS | Encounter Summary ---
Author Organization Formerly [facility] Address [facility] [place] [address] Care Team Providers Care Ladle Car Operator Name Role Phone Yisel Marroquin MD Primary Care Provider [phone] Encounter Details Date Type Department Care Team (Late st Contact Info) Description 10/29/2015 Interpretation Only Radiology [address] [place] [address] Unknown None Social History Tobacco Use Types [...] SPINE, HIP, AND/OR WHOLE BODY (GENERIC) Routine 10/29/2015 11:36 AM EDT documented in this encounter Results * DXA Central-Spine, Hip, And/Or Whole Body (Generic) (10/29/2015 11:36 AM EDT) Anatomical Region Laterality Modality C-spine, Hip N/A Radiographic Ara ging 10/29/2015 11:3 6 AM EDT Narrative 10/29/2015 11:36 AM EDT APD Historical Result Principal Associate Manager: ??MIRIAM IRIZARRY DXA SCAN BONE DENSITY: INDICATION: ??Postmenopausal. ??Medications, vitamin D and calcium. Patient is overweight. ?? History of left arm and ankle fracture. ??Osteoporosis in her mother. ??Current smoker. ??History of family thyroid disease and kidney disease and heart disease. ??Patient has been diagnosed with vitamin D deficiency and calcium deficiency, part of her stomach has been removed. ??She has also had a hysterectomy and oophorectomy. FINDINGS: Average bone mineral density of L1 through L4 is 0.837 grams per centimeter squared for a T-score of -1.9. Average bone mineral density in the neck of the left hip is 0.519 grams per centimeter squared for a T-score is -3. ??Total bone mineral density in the left hip is 0.778 grams per centimeter squared for a T-score of -1.3. ??Brown triangle has a T-score of -3.7. IMPRESSION: The left hip is osteoporotic. ??The spine is osteopenic. There is a 10-year fracture risk of a major osteoporotic fracture of 17% with a history of prior fracture and a 4.1% in the hip with a history of prior fracture. ??Consideration for bone enhancing mineral medication should be made. ??Followup appropriate in 1 year. Miriam Hardy MD MR/mn [id number] Procedure Note Unknown - 01/22/2019 APD Historical Result Principal Associate Manager: MIRIAM HARDY DXA SCAN BONE DENSITY: INDICATION: Postmenopausal. Medications, vitamin D and calcium. Patientis overweight. History of left arm and ankle fracture. Osteoporosis in her mother.Current smoker. History of family thyroid disease and kidney disease and heart disease. Patient has beendiagnosed with vitamin D deficiency and calcium deficiency, part of her stomach has been removed.She has also had a hysterectomy and oophorectomy. FINDINGS: Average bone mineral density of L1 through L4 is 0.837 grams percentimeter squared for a T-score of -1.9. Average bone mineral density in the neck of the left hip is 0.519 gramsper centimeter squared for a T-score is -3. Total bone mineral density in the left hip is 0.778grams per centimeter squared for a T-score of -1.3. Brown triangle has a T-score of -3.7. IMPRESSION: The left hip is osteoporotic. The spine is osteopenic. Thereis a 10- year fracture risk of a major osteoporotic fracture of 17% with a history of priorfracture and a 4.1% in the hip with a history of prior fracture. Consideration for bone enhancing mineralmedication should be made. Followup appropriate in 1 year. Miriam Hardy MD MR/cornelio [id number] Unknown IMG DEXA ORDERABLES documented in this encounter Visit Diagnoses Not on filedocumented in this encounter Care Teams Ladle Car Operator Relationship Specialty Start Date End Date Yisel Marroquin MD [address] [id number] PCP - General 11/13/18 03/05/19 documented as of this encounter
--- OUTSIDE RECORDS SUMMARY | 2024-02-22 00:56 | XMS_ITS | Encounter Summary ---
[place] [address] Care Team Providers Care Astronomy Instructor Name Role Phone Aman Lawrence APRN Primary Care Provider [phone] Encounter Details Date Type Department Care Team (Late st Contact Info) Description 07/15/2014 Abstract Family Practice at [address] [id number] Sadie Britton, RN [address] [address] Social History Tobacco Use Types Packs/Day Years [...] Sign Reading Time Taken Comments Blood Pressure 134/70 06/05/2014 12:00 AM EST Pulse 57 04/16/2014 5:05 PM EDT Temperature - - Respiratory Rate - - Oxygen Saturation - - Inhaled Oxygen Concentration - - Weight 106.8 kg (235 lb 7.2 oz) 04/16/2014 5:05 PM EDT Height 161 cm (5' 3.39) 04/16/2014 5:05 PM EDT Body Mass Index 41.2 04/16/2014 5:05 PM EDT documented in this encounter Plan of Treatment Not on file documented as of this encounter Visit Diagnoses Not on filedocumented in this encounter Care Teams Astronomy Instructor Relationship Specialty Start Date End Date Aman Lawrence [place] [address] PCP - General 06/16/10 06/27/18 documented as of this encounter
--- OUTSIDE RECORDS SUMMARY | 2024-02-22 00:56 | XMS_ITS | Encounter Summary ---
Author Organization [facility] Address [facility] [place] [address] Care Team Providers Care Mechanical Engineer Name Role Phone Yisel Marroquin MD Primary Care Provider [phone] Encounter Details Date Type Department Care Team (Late st Contact Info) Description 05/14/2015 Orders Only Radiology and Cardiology Results [address] [place] [id number] Apd Conversion, Results Provider, Social History Tobacco [...] Comments LIPID PANEL (REFLEX DIRECT LDL) Routine 05/14/2015 documented in this encounter Results * (ABNORMAL) Lipid Panel (05/14/2015) Chol/HDL Ratio 3.0(ExtL) 3.2 - 4.4 [facility] DAY CONVERSION VLDL 34.8(Exte rnal Lab) [facility] DAY CONVERSION LDL Cholesterol 46(Building Custodian al Lab) [facility] DAY CONVERSION HDL 40(Building Custodian al Lab) 40 - 60 [facility] DAY CONVERSION Triglycerides 174(ExtH) 30 - 150 [facility] DAY CONVERSION Chol, Total 121(Exter nal Lab) 50 - 200 [facility] DAY CONVERSION 05/14/2015 Results Provider Apd Conversion MD JASON ESTRELLA ORDERABLES KORI CONVERSION documented in this encounter Visit Diagnoses Not on filedocumented in this encounter Care Teams Mechanical Engineer Relationship Specialty Start Date End Date Yisel Marroquin MD [address] [place] [address] PCP - General 11/13/18 03/05/19 documented as of this encounter
--- OUTSIDE RECORDS SUMMARY | 2024-02-22 00:56 | XMS_ITS | Encounter Summary ---
[place] [address] Care Team Providers Care Plumbing Mechanic Name Role Phone Yisel Marroquin MD Primary Care Provider [phone] Encounter Details Date Type Department Care Team (Late st Contact Info) Description 05/14/2015 Orders Only Radiology and Cardiology Results [address] [place] [id number] Apd Conversion, Results Provider, Social History Tobacco [...] Priority Date/Time Associated Diagnosis Comments TSH Routine 05/14/2015 documented in this encounter Results * (ABNORMAL) TSH (05/14/2015) TSH 1.530(Exte rnal Lab) 0.358 - 3.740 [facility] CONVERSION 05/14/2015 Results Provider Apd Conversion MD JASON ESTRELLA ORDERABLES [facility] CONVERSION documented in this encounter Visit Diagnoses Not on filedocumented in this encounter Care Teams Plumbing Mechanic Relationship Specialty Start Date End Date Yisel Marroquin MD [address] [place] [address] PCP - General 11/13/18 03/05/19 documented as of this encounter
--- OUTSIDE RECORDS SUMMARY | 2024-02-22 00:56 | XMS_ITS | Encounter Summary ---
[place] [address] Care Team Providers Care Child Neurologist Name Role Phone Aman Lawrence APRN Primary Care Provider [phone] Reason for Referral * Consultation (Routine) - Closed Specialty Diagnoses / Procedures Referred By Vanita dimas Referred To Contact Gastroenterology Diagnoses Gastroesophageal reflux disease, esophagitis presence not specified Status post bariatric surgery Intestinal malabsorption, unspecified type Sidra Del Toro APRN [facility] [place] [address] [facility] End[address] [place] [address] Referral ID Status Reason Start Date Expiration Date V isits Requested Visits Authorized [id number] Closed Test Only 10/23/2015 10/22/2016 1 1 Reason for Visit * Reason Comments Follow-up Bariatric Surgery Pr ogram follow up Encounter Details Date Type Department Care Team (Latest Contact Info) Description 10/23/2015 10:30 AM EDT Office [place] [address] Sidra Del Toro APRN [facility] [place] [address] Gastroesophageal reflux disease, esophagitis presence not specified; Vitamin D deficiency; Disorder of iron metabolism; Status post bariatric surgery; Intestinal malabsorption, unspecified type [K90.9] Social History Tobacco Use Types Packs/Day Years [...] Sign Reading Time Taken Comments Blood Pressure 139/71 10/23/2015 10:33 AM EDT Pulse 55 10/23/2015 10:33 AM EDT Temperature 36.8 ??C (98.2 ??F) 10/23/2015 10:33 AM E DT Respiratory Rate 19 10/23/2015 10:33 AM EDT Oxygen Saturation 98% 10/23/2015 10:33 AM EDT Inhaled Oxygen Concentration - - Weight 108 kg (238 lb) 10/23/2015 10:33 AM EDT Height - - Body Mass Index 41.13 05/01/2015 9:45 AM EDT documented in this encounter Patient Instructions * Patient Instructions* Niecy Darden - 10/23/2015 11:14 AM EDT [facility] Admin coordinator Rhonda: [phone] Dietitian: [phone] Surgeons/ nurse practitioner: [phone] Nurse line: [phone] Your excess body weight lost: 36% Continue to with the hard work. Testin. Labwork: Today. Go to [facility], which is 1 flight below the General Surgery Clinic. Please note that you will always receive a letter with lab results and recommendations. Please readthis letter carefully and follow recommendations. The letter also contains information regarding your next lab draw. 2. Ask Aman about a bone density scan Next visit: To be determined Routine visits are done at 4.8,12, 18 and 24 months after surgery, and yearly thereafter. Please call [phone] if you do not receive an appointment by 3-4 weeks prior to the expected visit. Medications: 1. Ask Aman about the plavix medication- when to stop before to the endoscopy 2. recommendations pending labwork. Referrals: Upper endoscopy. The date of the study will like change Date of Procedure: 12/03/15 Arrival Time: 7:30 AM Location: [facility], Endoscopy Center - please park in the parking garage. Estimated Discharge Time Within 2 - 4 hours Please read carefully. If you have any questions please call * We try very hard to be on time, however sometimes there are emergencies. While this doesn???t happen very often you may experience and unanticipated delay. We want each and every patient to get theexcellent care our Endoscopy Center provides, and thus we thank you in advance for your patience ifyour procedure is unexpectedly delayed. Please bring someone to drive you home after the exam and do not drive for 24 hours after your procedure. Due to the sedation given during the procedure, we cannot perform your procedure unless youhave an adult who can pick you up in the Endoscopy Center after your procedure and escort you home.In the interest of patient safety, there can be no exceptions to this. Please, no alternative forms of transportation like cabs or buses. We do request your pick up driver stay at [facility] while you are here foryour procedure. If you have read the enclosed information thoroughly and still have questions about what you have read, please call [phone] between the hours of 7:00am- 7:00pm, Tuesday-Tuesday and a nurse will assist you. If you have an urgent matter after hours, please call [phone] and ask to speak to the Gastroenterology Fellow information systems security specialist. If you need to reschedule your procedure please call: [phone]. The preparation for this procedure is no solids for 8 hours prior to your procedure. You may have clear liquids up to 4 hours prior to your procedure. Follow the above instructions to ensure a safer and more thorough exam. Do NOT eat or drink anything purple, red, or blue. ? Broth, bouillon ? Tea or coffee (you may have sugar, but no dairy or non-dairy creamer) ? Apple juice, white grape juice, white cranberry juice ? Jaimie benny, Sprite, Seven-up, Anna Mist, Fresca ? Water ? Jell-O without any fruit or vegetables added; no purple, red or blue Jell-O ? Popsicles; no purple, red or blue, Life Saver MEDICATION INFORMATION ? Please call your prescribing physician to see if it is safe for you to lessen the dose or stop your medication prior to this procedure. Please note: if you cannot safely stop these medication, please call . The prescribing physician can give you instructions on how to take your medications before and after your procedure if you: o You are on Anti-Arthritic medication. o Take pain medications; please do NOT stop taking your pain medications before our procedure. Vitamins: The following vitamins are recommended: ??? Multivitamins with minerals twice daily- needs to be an under 50 multivitamin that contains iron. (No senior multivitamins. (or once daily if a Bariatric specific multivitamin such as procare). [...] have regular periods, iron deficiency or anemia. Start taking iron 3 days a week andstart taking Miralax daily to help with constipation. Nutrition recommendations: Continue to stick to soft foods, try more soups with soft meat in them and more low fat cheese. Add soft cooked vegetables and more fruit to your diet. Avoid Ensure and shakes high in calories, stick to Slim Fast low carb or Atkins. - Your Daily Goals: ??? 1,000-1,200 calories per day (300 calories per meal, 100 calories per snack, 1-2 snacks per day) ??? 60 grams of protein per day (20 grams per meal) ??? 48-64 oz of non-caloric and hydrating fluids per day (6-8, 8 oz cups) ??? Do not drink with meals- pushes food [...] of every month from 1-2 PM at [facility]- no registration required Internet resources: www.Vivogig www.Edamam www.[employer] www.CANWE STUDIOS (cat Alonzo) https://www.[employer].com/[facility]ric[facility]gery Bariatric surgery apps- [facility] Post-cecy Books & Magazines: - Recipes for Life After Weight Loss Surgery by Suly Cruz - Shrink Yourself by Dr Juan Carlos Carlos - Nutrition Action Health Letter subscribe at [email or web address].org/nah/ - Eating Well - Cooking Light documented in this encounter Progress Notes * Niecy Darden - 10/23/2015 8:32 AM EDT Bariatric Surgery Program Nutrition Progress Note Encounter Type: follow up SUBJECTIVE: Topics Discussed/Patient Concerns: ?? Came to appointment with her mental health worker today. ?? She reports she blew the diet right out the window, she eats on the go/ fast food. 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 She started making changes to her diet in July. One day she started having trouble eating meat, she found she could only eat waller. Now waller upsets her stomach along with a large variety of other foods. OBJECTIVE: S/P non-divided RNY gastric bypass on 05/12/00 Weight History: Date WT HT 61 BMI Comments 06/08/99 299 %EWL 51.8 Pre-op weight 08/13/10 248 30 42.5 11/11/10 237 37.5 40.7 07/04/13 236 37.5 40.5 13 Years post-op 10/23/15 238 36.3% 41.6 15.5 years post-op Reported Vitamin and Mineral Supplementation: Type Type Frequency dose Comments Calcium none Needs to start B12 pill 1,000 mcg daily Multivitamin 1 pill daily Iron Ferrous sulfate 325 mg Once a week Gets constipated, recommended dose on her med sheet she brought today is 3 days a week Vitamin C pill 1,000mg daily Vitamin D 2,000 IU daily Miralax as needed Tracking Intake: used to write down intake, not doing it now. Daily Oral Intake: Breakfast CIB w/ low fat milk AM Snack Sometimes 1/2 cup cottage cheese w/ peaches or Turkmen yogurt Lunch Slimfast or Ensure SF PM Snack 1/2 cup cottage cheese and fruit Dinner CIB or Turkmen yogurt or HB egg HS Snack She is able to eat PB and tomato soup as well, but most other foods bother her stomach. Protein/ grams per day: 60 grams Calories per day: 900-1000 kcal Hydrating Fluids: 1 cup Sleepy tea and 48 oz warm water, and CIB, Slim fast, and Ensure Soda: none ETOH: none Caffeine: none Sweets: Sf pudding and applesauce Meals: 3 /day. ?? Feels full/satisfied after eating: yes ?? Feels hungry []never [x]sometimes []most of the time [] always ?? Drinks with meals: none ?? Practices portion control: measuring portions ?? Spends at least 20 minutes eating each meal: 15 minutes for shakes ?? Has had dumping syndrome: custard Foods/Symptoms: upset stomach, vomiting ?? In the past month, pt has vomited/regurgitated: after eating or the smell of food cooking, has vomited 6 times after eating custard, PB and apple, chicken soup, and stroganoff Food Allergies/Intolerances: Meat, bread, vegetables. She does not like beans. Exercise: PT at home daily for neck and back and tries to walk 15-20 minutes a day. ASSESSMENT: Summary of Weight Loss: Patient's percent excess weight loss is 36.3% which is below the expected post- op bariatric surgeryrange. Weight seems to have stayed stable the past 2 years. Patient has been having difficulty eating tough foods, such as meats and vegetables. She has been consuming a lot of protein shakes and soft foods. Patient is meeting protein needs but her calorie intake is low. Discussed trying more soft foods to help increase her intake of food at meals and using protein in between meals to help meet protein goal. Recommend pt try eating meat based soups, low fat cheese, and well cooked vegetables toadd more variety to her diet. Patient is meeting her fluid needs. Compliant with supplements, although recommend patient start taking calcium and increase her MVI to twice a day and iron dosing to 3 days per week. Recommend pt start taking Miralax daily as she increases her iron to help with constipation. Patient has a good exercise routine with her physical therapy she does at home. NUTRITION INTERVENTION & MONITORING: ?? Provided support/encouragement and reinforced importance of meeting nutritional goals. ?? Reviewed nutrition and vitamin and mineral supplement recommendations (see patient instructions). ?? Written recommendations provided. Patient agreed with these and verbalized adequate understanding ?? Evaluation by nurse practitioner today ?? Handouts provided: One Year and Beyond (revised 10/2013) * Sidra Del Toro - 10/22/2015 8:28 PM EDT Reason for visit: Follow up S/P partitioned, non-divided Genesis en Y gastric bypass on 05/12/00 Complications summary: Early unknown Late Question of staple line breakdown by barium swallow in 2010 Visits summary: Compliance with follow up: less [...] 174 HDL 40 LDL 46 A1c 6.0 Post op wt history: 222 pounds on 02/20/01, 238 pounds on 03/30/02, 242 pounds on 10/04/02, 255 pounds on 10/22/03, 263 pounds on 05/26/05, 222 pounds on 10/11/05 Date Evaluation Results 09/29/15 Primary care Epigastric pain EGD Pending 2016 08/24/10 Ba swallow Although the initial images showed contrast filling a mildly dilated pouch, withtime of contrast was clearly seen within the [place] fundus indicating a leak. The site of [...] a surgical candidate based on tobacco use -EGD was ordered, not done by patient due to anxeity never Colonoscopy ? Mammogram - Pap [facility] 11/07/02 DEXA normal Problem List ??? Pre-operative [...] stable, on clopidogrel A. S/P hospitalization for [facility], ALF placement x 2 to [...] issues: stable with regular counseling Luis , bekah jerri Howell in [place]. She finds self-hypnosis, [...] T &A ??? 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 Patient concerns at today's visit: she Would like to get re-established with the Bariatric Surgery Program. She reports that she has been eating whatever for the past 2 years. She has had worseningdifficulty tolerating meat since July. She wears an upper denture which makes chewing difficult.She has no difficulty with soft foods such as yogurt, cottage cheese and fruit. She receives food st amps. Recently, PPI therapy was increased to 40 mg twice a day increased by her PCP on 09/28 when she presented with 3 week history of epigastric pain Review of Systems (negative if left blank): Constitutional: [] fatigue [] pica Neurologic: [] paresthesias [] memory loss GI: [] GERD, dysphagia [] dumping [] abdominal pain, hernia [] nausea/vomiting [] blood in stool [] chronic diarrhea/ constipation CYBER REVERSE ENGINEER: [] LMP: [] control [] menorrhagia [+] surgical menopause Heme/Lymph: [] excessive bruising [] blood donor in past year Psychiatric [] mental health concerns Other: Exercise/activity level: as per RD note Employment/social: disabled/ Health-related habits: Tobacco: 1 PPD Alcohol: none Dietary history: See dietitian note. Objective: General: 55 y.o. year-old female looks well, appears upbeat. She is accompanied to today's visit byher field traffic investigator. Exam room with nauseating odor of nicotine Heart: RRR Lungs: CTA without wheezing Abdomen: soft, non-tender. Multiple upper abdominal scars, including upper midline, right subcostaland chevron scars well-healed, without evidence of hernia. Extremities: no edema Vital signs:Blood pressure 139/71, pulse 55, temperature 36.8 ??C (98.2 ??F), resp. rate 19, aatzdc604.956 kg (238 lb), SpO2 98 %. Body mass index is 41.65 kg/(m^2). Assessment: S/P remote non-divided gastric bypass, with loss of 36.3% of excess body weight. Question GGF. Chronic tobacco dependence Plan: ?? EGD to rule out gastrogastric fistula, ulcer scheduled for 12/02 with anesthesia, is on cancellation list. She was advised to discuss timing of clopidogrel therapy with regard to EGD ? Hold prior to procedure. The instructions were reviewed in detail with Jeannie and her wrapper caser. ?? She is unable to stay to have labwork done today, will be done at [facility]. Primary care office called to obtain copy of recent labwork for continuity of care and prevent unnecessary duplication of testing ?? Advised to discuss the timing of her next bone density scan with Primary Care Clinicia, since she is at high risk for osteoporosis ?? Her extensive medication list was reviewed. ?? Discussion regarding smoking cessation. She will consider cessation, and was advised that tobacco cessation needed to be in place prior to consideration of surgery, given half-way risks associated with tobacco use including lifetime risk of ulcer ?? Next BSP visit: 1 year, and TBD ?? Discussion at team meeting after EGD completed ?? Next labwork: pending ?? Additional vitamin and mineral supplement recommendations (*in addition to usual post surgery supplements, as noted below): increase multivitamin with iron to BID, pending lab results ?? dietary/ exercise recommendations per RD ?? Advised to call if develops unexplained abdominal pain, concerns or questions provided with a May 2013 edition of One Year and Beyond bariatric surgery, a resource regarding supplements, diet, recommendations for patients > 1 year post surgery documented in this encounter Plan of Treatment Scheduled Referrals Name Type Priority Associated Diagnoses Order Schedule Referral to Gastroenterology Outpatient Referral Routine Gastroesophageal Reflux Disease, Esophagitis Presence Not Specified Status post bariatric surgery Intestinal malabsorption, unspecified type [K90.9] Ordered: 10/23/2015 documented as of this encounter Visit Diagnoses Diagnosis Gastroesophageal reflux disease, esophagitis presence not specified Vitamin D deficiency Unspecified vitamin D deficiency Disorder of iron metabolism Other disorders of iron metabolism Status post bariatric surgery Bariatric surgery status Intestinal malabsorption, unspecified type [K90.9] documented in this encounter Care Teams Child Neurologist Relationship Specialty Start Date End Date Aman Lawrence APRN [address] [place] [address] PCP - General 06/16/10 06/27/18 documented as of this encounter
--- OUTSIDE RECORDS SUMMARY | 2024-02-22 00:56 | XMS_ITS | Encounter Summary ---
Author Organization [facility] Address [facility] [place] [address] Care Team Providers Care Cleaning And Maintenance Worker Name Role Phone Yisel Marroquin MD Primary Care Provider [phone] Encounter Details Date Type Department Care Team (Late st Contact Info) Description 05/14/2015 Orders Only Radiology and Cardiology Results [address] [place] [id number] Apd Conversion, Results Provider, Social History Tobacco [...] Date/Time Associated Diagnosis Comments HEMOGLOBIN A1C Routine 05/14/2015 documented in this encounter Results * (ABNORMAL) Hemoglobin A1c (05/14/2015) Est Avg Gluc 125.5(ExtH ) 82.5 - 116.9 KORI FLORES DAY CONVERSION Hemoglobin A1C 6.0(Flower Buncher Or Picker al Lab) 4.5 - 6.2 KORI FLORES DAY CONVERSION 05/14/2015 Results Provider Apd Conversion MD JASON ESTRELLA ORDERABLES KORI GARCIA CONVERSION documented in this encounter Visit Diagnoses Not on filedocumented in this encounter Care Teams Cleaning And Maintenance Worker Relationship Specialty Start Date End Date Yisel Marroquin MD [address] [place] [address] PCP - General 11/13/18 03/05/19 documented as of this encounter
--- OUTSIDE RECORDS SUMMARY | 2024-02-22 00:56 | XMS_ITS | Encounter Summary ---
Author Organization [facility] Address [facility] [place] [address] Care Team Providers Care Supervisor Inspection Department Name Role Phone Yisel Marroquin MD Primary Care Provider [phone] Encounter Details Date Type Department Care Team (Late st Contact Info) Description 10/21/2014 Orders Only Radiology and Cardiology Results [address] [place] [id number] Apd Conversion, Results Provider, Social History Tobacco [...] Date/Time Associated Diagnosis Comments HEMOGLOBIN A1C Routine 10/21/2014 documented in this encounter Results * (ABNORMAL) Hemoglobin A1c (10/21/2014) Est Avg Gluc 128.4(ExtH ) 82.5 - 116.9 KORI FLORES DAY CONVERSION Hemoglobin A1C 6.1(Production Department Supervisor al Lab) 4.5 - 6.2 KORI FLORES DAY CONVERSION 10/21/2014 Results Provider Apd Conversion MD JASON ESTRELLA ORDERABLES KORI GARCIA CONVERSION documented in this encounter Visit Diagnoses Not on filedocumented in this encounter Care Teams Supervisor Inspection Department Relationship Specialty Start Date End Date Yisel Marroquin MD [address] [place] [address] PCP - General 11/13/18 03/05/19 documented as of this encounter
--- OUTSIDE RECORDS SUMMARY | 2024-02-22 00:56 | XMS_ITS | Encounter Summary ---
Author Organization [facility] Address [facility] [place] [address] Care Team Providers Care Signals Intelligence Analyst Name Role Phone Yisel Marroquin MD Primary Care Provider [phone] Encounter Details Date Type Department Care Team (Late st Contact Info) Description 02/10/2014 Interpretation Only Radiology [address] [place] [address] Unknown None Social History Tobacco Use Types [...] Diagnosis Comments XR ABDOMEN 1 VIEW Routine 02/10/2014 5:0 7 PM EDT documented in this encounter Results * XR Abdomen 1 view (Generic) (02/10/2014 5:07 PM EDT) Anatomical Region Laterality Modality Abdomen N/A Radiographic Ara ging 02/10/2014 5:07 PM EDT Narrative 02/10/2014 5:07 PM EDT APD Historical Result Principal Airport Planner: ??JENNY ??LUZMARIABERRY SUPINE ABDOMEN: Supine views of the abdomen were performed on 4 images for a history of kidney stone, left-sided renal pain. Exam was compared with the CT of the same day. There is a 2.5-mm stone seen by CT at the ureteropelvic junction in the left. ??This is not apparent by radiography. ??Surgical clips, right upper quadrant, as well as left upper abdominal staple lines from previous bowel surgery are noted. ??Degenerative changes in the lower lumbar spine. ?? Visualized soft tissue planes are unremarkable. ??Nonspecific bowel gas pattern. IMPRESSION: A 2.5-mm ureteropelvic junction stone seen by CT not clearly demonstrated by Radiography. Jenny Landa MD [facility]/mn [id number] CC: Procedure Note Unknown - 01/22/2019 APD Historical Result Principal Airport Planner: JENNY LANDA SUPINE ABDOMEN: Supine views of the abdomen were performed on 4 images for a history ofkidney stone, left-sided renal pain. Exam was compared with the CT of the same day. There is a 2.5-mm stone seen by CT at the ureteropelvic junction in theleft. This is not apparent by radiography. Surgical clips, right upper quadrant, as well asleft upper abdominal staple lines from previous bowel surgery are noted. Degenerative changes in the lowerlumbar spine. Visualized soft tissue planes are unremarkable. Nonspecific bowel gaspattern. IMPRESSION: A 2.5-mm ureteropelvic junction stone seen by CT not clearlydemonstrated by Radiography. Jenny Landa MD [facility]/mn [id number] CC: Unknown IMG DX ORDERABLES documented in this encounter Visit Diagnoses Not on filedocumented in this encounter Care Teams Signals Intelligence Analyst Relationship Specialty Start Date End Date Yisel Marroquin MD [address] [place] [address] PCP - General 11/13/18 03/05/19 documented as of this encounter
--- OUTSIDE RECORDS SUMMARY | 2024-02-22 00:56 | XMS_ITS | Encounter Summary ---
Author Organization [facility] Address [facility] [place] [address] Care Team Providers Care Patient Transporter Name Role Phone Yisel Marroquin MD Primary Care Provider [phone] Encounter Details Date Type Department Care Team (Late st Contact Info) Description 06/05/2014 Abstract [place] Conversion Results [address] [place] [address] Apd Conversion, Flowsheet Provider, Social History Tobacco [...] Time Taken Comments Blood Pressure 134/70 06/05/2014 8:42 AM EST Sourced from APD Conversion Pulse - - Temperature - - Respiratory Rate - - Oxygen Saturation - - Inhaled Oxygen Concentration - - Weight 107 kg (235 lb 14.3 oz) 06/05/2014 8:42 AM EST Sourced from APD Conversion Height - - Body Mass Index 41.28 04/16/2014 5:05 PM EDT documented in this encounter Plan of Treatment Not on file documented as of this encounter Visit Diagnoses Not on filedocumented in this encounter Care Teams Patient Transporter Relationship Specialty Start Date End Date Yisel Marroquin MD [address] [place] [address] PCP - General 11/13/18 03/05/19 documented as of this encounter
--- OUTSIDE RECORDS SUMMARY | 2024-02-22 00:56 | XMS_ITS | Encounter Summary ---
Author Organization [facility] [place] [address] Care Team Providers Care Loans Consultant Name Role Phone Aman Lawrence APRN Primary Care Provider [phone] Encounter Details Date Type Department Care Team (Late st Contact Info) Description 02/22/2014 3:50 PM EDT [place] [address] Jovany Cerda MD [facility] [place] [address] Kidney stone (Primary Dx) Discharge Disposition: Home [...] Sign Reading Time Taken Comments Blood Pressure 126/75 02/22/2014 3:49 PM EDT Pulse 63 02/22/2014 3:49 PM EDT Temperature 36.9 ??C (98.5 ??F) 02/22/2014 3:49 PM ED T Respiratory Rate - - Oxygen Saturation - - Inhaled Oxygen Concentration - - Weight 107 kg (236 lb) 02/22/2014 3:49 PM EDT Height 158.8 cm (5' 2.5) 02/22/2014 3:49 PM EDT Body Mass Index 42.48 02/22/2014 3:49 PM EDT documented in this encounter Progress Notes * Jovany Cerda MD - 02/22/2014 3:47 PM EDT 53F h/o multiple medical problems who is referred from the ED with a kidney stone. She was seen in the [facility] ED on 02/11/14 with left flank pain. CT demonstrated a 2.5cm left UPJ stone and moderate hydronephrosis. We do not have the images. She was given flomax and pain medication. Nofevers or chills. Advised to strain her urine. No evident stones have passed. Has intermittent left flank pain, mild, with some nausea controlled w/ zofran. No objective fever. Right side pain is episodic like a muscle spasm. No urinary symptoms. No history of stones. H/o ? 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 Past Medical History Diagnosis Date ??? Hypertension [...] GI ENDOSCOPY performed by DEE WRIGHT at [facility] ??? Abdomen surgery ??? Hysterectomy Gastric [...] complex vitamins (B COMPLEX-VITAMIN B12) tablet ??? tcktnlgbncun-nvgk-nzaswyez (COMPLETE MULTIVITAMIN) Tab tablet 1 Tablet(s), PO, Once daily ??? calcium citrate-vitamin D (CITRACAL+D) 315-200 mg-unit per tablet 2 Tablet(s), PO, Twice daily ??? ergocalciferol (VITAMIN D) 50,000 unit capsule [id number], PO, TWICE a week Allergies Allergen Reactions [...] narrative on file FH: neg for stones Review of Systems Constitutional: Negative for fever, chills and fatigue. HENT: Negative for neck pain. Eyes: Negative for visual disturbance. Respiratory: Negative for shortness of breath. Cardiovascular: Negative for chest pain. Gastrointestinal: Negative for abdominal pain. Genitourinary: Negative for dysuria, hematuria and difficulty urinating. Musculoskeletal: Negative for back pain. Neurological: Negative for dizziness. Psychiatric/Behavioral: Negative for confusion. Physical Exam Constitutional: She appears well-developed and well-nourished. HENT: Head: Normocephalic. Eyes: Pupils are equal, round, and reactive to light. Neck: Normal range of motion. Cardiovascular: Normal rate. Pulmonary/Chest: Effort normal. Abdominal: Soft. There is no tenderness. Musculoskeletal: Normal range of motion. Neurological: She is alert. Skin: Skin is warm and dry. Psychiatric: She has a normal mood and affect. A: 2.5mm L UPJ stone P: We discussed her history in detail. We reviewed options of continued trial of passage vs surgical treatment. Given her low grade symptoms, trial of passage is most reasonable given the stone's small size. We discussed that if she has progression of symptoms, or is unable to pass the stone by 4 weeks, we would move forward with treatment. Options of ureteroscopy and shock wave lithotripsy were reviewed. These were tentatively described but we deferred a complete discussion for her follow up appointment. She desires to avoid surgery if possible. She will continue flomax and symptomatic treatment. She will alert me for signs or symptoms of infection, or severe pain etc. We will have her return in 2 weeks with a renal ultrasound prior. Also we will obtain images from her recent CT scan. Her questions were answered in detail. documented in this encounter Miscellaneous Notes * Addendum Note - Rudy Wilks V - 02/22/2014 4:50 PM EDTAddended by: RUDY WILKS V on: 02/22/2014 04:50 PM Modules accepted: Orders * Addendum Note - Yodit Del Rio LPN - 02/22/2014 4:32 PM EDTAddended by: YODIT DEL RIO on: 02/22/2014 04:32 PM Modules accepted: Orders documented in this encounter Plan of Treatment Not on file documented as of this encounter Procedures Procedure Name Priority Date/Time Associated Diagnosis Comments URINE CULTURE Routine 02/22/2014 5:18 PM EDT Kidney stone URINALYSIS WITH REFLEX CULTURE Routine 02/22/2014 4:35 PM EDT Kidney stone documented in this encounter Results * US retroperitoneal complete (03/11/2014 4:02 PM EDT) Anatomical Region Laterality Modality Abdomen Ultrasound 03/11/2014 4:02 PM EDT Narrative 03/11/2014 4:23 PM EDT Renal ?(Signed Final 03/11/2014 04:10 ? pm) Patient Info ID #: ? [id number] ?: ??[birth year] (53 yrs) Name: ? JEANNIE RICO ?Visit Date: 03/11/2014 03:57 pm Performed By Performed By: ?Charlie STEVENSON, Elsa Associate: ? Wilfrido Stuart DO Attending: ? Christiano SLADE, Elba Carbajal Referred By: ? JOVANY CERDA MD Service(s) Provided ??URETRO - Retroperitoneal Complete - [id number] ? [id number] Indications ??kidney stone Right Kidney Size (cm) [...] 03/11/2014 04:10 pm) Patient Info ID #: [id number] : [birth year] (53 yrs) Name: JEANNIE RICO Visit Date: 03/11/2014 03:57 pm Performed By Performed By: Elsa Guerra RDMS Associate: Wilfrido Stuart DO Attending: Elba Alvarado MD Referred By: JOVANY CERDA MD Service(s) Provided URETRO - Retroperitoneal Complete - [id number] Indications kidney stone Right Kidney Size (cm) [...] Film and interpretation reviewed by the attending Jovany Cerda MD IMG US GEN ORDERABLE S * Urine culture Clean Catch Urine (02/22/2014 5:18 PM EDT) Urine Culture ? Patient Name: JEANNIE RICO ? Ordered By: JOVANY CERDA ? MR#: [id number] ?LOC: ??5B ? /Sex: ??1960 (53 years), ? Female ? PROCEDURE: Urine Culture ?SOURCE: U CC ? COLLECTED: 02/22/2014 17:18 ? STARTED: 02/22/2014 17:19 ? FINAL REPORT ? Final Report ? Verified:2013 15:43 ? 1,000-9,000 cfu/ml Gram Positive organisms , probable contaminant ? CERNER MILLENNIUM Urine specimen obtained by clean catch procedure (specimen) 02/22/2014 5:18 PM EDT 02/22/2014 5:18 PM EDT Narrative Resulting Agency Comment Spec In Lab Jovany Cerda MD MICROBIOLOGY - GENER AL ORDERABLES CERNER MILLENNIUM * (ABNORMAL) Urinalysis with microscopic (02/22/2014 4:35 PM EDT) Glucose UA Negative Negative mg/dL CERNER MILLENNIUM Protein UA Trace(A) Negative mg/dL CERNER MILLENNIUM Bilirubin UA Negative Negative mg/dL CERNER MILLENNIUM Comment: Clinical correlation required for positive Urine Bilirubin results as false positive may occur with some drugs and drug related products. If a false positive is suspected a serum total bilirubin should be considered if clinically indicated. Urobilinogen UA 2.0(A) Normal mg/dL C ERNER MILLENNIUM pH UA 5.5 5.0 - 8.0 CERNER MILLENNIUM Blood UA Negative Negative mg/dL CERNER MILLENNIUM Ketones UA Negative Negative mg/dL CERNER MILLENNIUM Nitrite UA Negative Negative CERNER MILLENNIUM Leukocytes UA Small(A) Negative mcL CER NER MILLENNIUM Appearance UA Clear Clear CERNER MILLENNIUM Spec [place] UA 1.019 1.002 - 1.030 CERNER MILLENNIUM Color UA Yellow Yellow CERNER MILLENNIUM RBC UA 3 0 - 4 /HPF CERNER MILLENNIUM WBC UA 8(H) 0 - 5 /HPF CERNER MILLENNIUM Trans Epith UA <1 <=1 /HPF CERNE R MILLENNIUM Hyaline Cast UA 18(H) 0 - 2 /LPF CER NER MILLENNIUM Urine specimen (specimen) URINE SPECIMEN OBTAINED BY CLEAN CATCH PROCEDURE / Unknown 02/22/2014 4:35 PM EDT 02/22/2014 4:58 PM EDT Narrative Resulting Agency Comment Spec In Lab Jovany Cerda MD URINE ORDERABLES CERNER MILLENNIUM documented in this encounter Visit Diagnoses Diagnosis Kidney stone- Primary Calculus of kidney Kidney stone Calculus of kidney documented in this encounter Care Teams Loans Consultant Relationship Specialty Start Date End Date Aman Lawrence APRN [address] [place] [address] PCP - General 06/16/10 06/27/18 documented as of this encounter
--- OUTSIDE RECORDS SUMMARY | 2024-02-22 00:56 | XMS_ITS | Encounter Summary ---
Author Organization [facility] Address [facility] [place] [address] Care Team Providers Care Studio Musician Name Role Phone Yisel Marroquin MD Primary Care Provider [phone] Encounter Details Date Type Department Care Team (Late st Contact Info) Description 12/13/2014 Abstract [facility] [place] Krystal Conversion Results [address] [place] [address] Apd Conversion, Flowsheet Provider, Social History Tobacco [...] Sign Reading Time Taken Comments Blood Pressure 154/80 12/13/2014 9:09 AM EDT Sourced from APD Conversion Pulse - - Temperature - - Respiratory Rate - - Oxygen Saturation - - Inhaled Oxygen Concentration - - Weight 111 kg (244 lb 11.4 oz) 12/13/2014 9:09 AM EDT Sourced from APD Conversion Height - - Body Mass Index 42.82 04/16/2014 5:05 PM EDT documented in this encounter Plan of Treatment Not on file documented as of this encounter Visit Diagnoses Not on filedocumented in this encounter Care Teams Studio Musician Relationship Specialty Start Date End Date Yisel Marroquin MD [address] [id number] PCP - General 11/13/18 03/05/19 documented as of this encounter
--- OUTSIDE RECORDS SUMMARY | 2024-02-22 00:56 | XMS_ITS | Encounter Summary ---
Author Organization [facility] Address [facility] [place] [address] Care Team Providers Care Military Technician Name Role Phone Yisel Marroquin MD Primary Care Provider [phone] Encounter Details Date Type Department Care Team (Late st Contact Info) Description 12/19/2013 Orders Only Radiology and Cardiology Results [address] [place] [id number] Apd Conversion, Results Provider, Social History Tobacco [...] Comments LIPID PANEL (REFLEX DIRECT LDL) Routine 12/19/2013 documented in this encounter Results * (ABNORMAL) Lipid Panel (12/19/2013) Chol/HDL Ratio 2.7(ExtL) 3.2 - 4.4 [facility] DAY CONVERSION VLDL 21.8(Exte rnal Lab) KORI FLORES DAY CONVERSION LDL Cholesterol 45(Inset Cutter al Lab) KORI FLORES DAY CONVERSION HDL 40(Inset Cutter al Lab) 40 - 60 KORI FLORES DAY CONVERSION Triglycerides 109(Exter nal Lab) 30 - 150 KORI FLORES DAY CONVERSION Chol, Total 107(Exter nal Lab) 0 - 200 KORI FLORES DAY CONVERSION 12/19/2013 Results Provider Apd Conversion MD JASON ESTRELLA ORDERABLES KORI CONVERSION documented in this encounter Visit Diagnoses Not on filedocumented in this encounter Care Teams Military Technician Relationship Specialty Start Date End Date Yisel Marroquin MD [address] [place] [address] PCP - General 11/13/18 03/05/19 documented as of this encounter
--- OUTSIDE RECORDS SUMMARY | 2024-02-22 00:56 | XMS_ITS | Encounter Summary ---
Author Organization [facility] Address [facility] [place] [address] Care Team Providers Care Wire Setter Name Role Phone Aman Lawrence APRN Primary Care Provider [phone] Encounter Details Date Type Department Care Team (Latest Contact Info) Description 12/03/2015 7:35 AM EDT - 12/03/2015 9:01 AM EDT Hospital En[place] [address] Ken Sanders MD [facility] [place] [address] Discharge Disposition: Home Social History Tobacco Use [...] better as expected. Tuesday-Tuesday Same Day Endo [phone]-[phone] Otherwise contact [phone] and ask to speak to the agronomy instructor welder setter electron beam machine Follow-up care is a ramírez part of your treatment and safety. Be sure to make and go to all appointments, and call your doctor if you are having problems. Instructions have been reviewed and patient expresses understanding * Attachments The following attachments cannot be sent through Care Everywhere. * EGD (UPPER ENDOSCOPY) : POST-OP (MALIAN) documented in this encounter Medications at Time [...] vitamins (B COMPLEX-VITAMIN B12) tablet 09/23/2010 11/19/2016 tflqtawkgoze-pnhl-feete als (COMPLETE MULTIVITAMIN) Tab tablet 1 Tablet(s), PO, Once daily 09/23/2010 11/19/2016 calcium citrate-vitamin D (CITRACAL+D) 315-200 mg-unit per tablet 2 Tablet(s), PO, Twice daily 09/23/2010 11/19/2016 ergocalciferol (VITAMIN D) 50,000 unit capsule [id number], PO, TWICE a week 09/23/2010 11/19/2016 documented [...] (12/03/2015 8:39 AM EDT) FINAL DIAGNOSIS (AP) [id number] ? Location: 4T; EA11; A The signing [...] ng: (T1) ??sns 12/05/2015 2:25 PM EDT [facility] GI Biopsy 12/03/2015 8:39 AM EDT 12/03/2015 8:39 AM EDT GI Biopsy 12/03/2015 8:39 AM EDT 12/03/2015 8:39 AM EDT Ken Sanders MD PATHOLOGY/CYTOLOGY O ALYSON Performing Organization Address [facility] [place] [address] * Specimen to Pathology (surgical or derm) (12/03/2015 8:39 AM EDT) AP Specimen 12/03/2015 8:39 AM EDT 12/03/2015 8:39 AM EDT Narrative [facility] - 12/03/2015 8:39 AM EDT Specimen requisition ordered. ??Separate Pathology report to follow Ken Sanders MD PATHOLOGY/CYTOLOGY O ALYSON Performing Organization Address [facility] [place] [address] * Specimen to Pathology (surgical or derm) (12/03/2015 8:39 AM EDT) AP Specimen 12/03/2015 8:39 AM EDT 12/03/2015 8:39 AM EDT Narrative [facility] - 12/03/2015 8:39 AM EDT Specimen requisition ordered. ??Separate Pathology report to follow Ken Sanders MD PATHOLOGY/CYTOLOGY Kate SHIELDS Performing Organization Address [facility] [place] [address] * UPPER GI ENDOSCOPY (12/03/2015 8:21 AM EDT) UPPER GI ENDOSCOPY [facility] Endoscopy Patient Name: Jeannie Trisha ? Procedure Date: 12/03/2015 8:21 AM ? Date of : 1960 ? Age: 55 ? Order #: [id number] ? Procedure: ? Upper GI endoscopy Indications: [...] Babin) documented in this encounter Care Teams Wire Setter Relationship Specialty Start Date End Date Aman Lwarence APRN [address] [place] [address] PCP - General 06/16/10 06/27/18 documented as of this encounter
--- OUTSIDE RECORDS SUMMARY | 2024-02-22 00:56 | XMS_ITS | Encounter Summary ---
Author Organization [facility] Address [facility] [place] [address] Care Team Providers Care Pharmacy Innovation Assistant Name Role Phone Yisel Marroquin MD Primary Care Provider [phone] Encounter Details Date Type Department Care Team (Late st Contact Info) Description 04/16/2014 Abstract [place] Conversion Results [address] [place] [address] Apd Conversion, Flowsheet Provider, Social History Tobacco [...] Sign Reading Time Taken Comments Blood Pressure 124/80 04/16/2014 9:41 AM EDT Sourced from APD Conversion Pulse - - Temperature - - Respiratory Rate - - Oxygen Saturation - - Inhaled Oxygen Concentration - - Weight 106.8 kg (235 lb 7.2 oz) 04/16/2014 9:41 AM EDT Sourced from APD Conversion Height 161 cm (5' 3.39) 04/16/2014 9:4 1 AM EDT Sourced from APD Conversion Body Mass Index 41.2 04/16/2014 9:41 AM EDT documented in this encounter Plan of Treatment Not on file documented as of this encounter Visit Diagnoses Not on filedocumented in this encounter Care Teams Pharmacy Innovation Assistant Relationship Specialty Start Date End Date Yisel Marroquin MD [address] [place] [address] PCP - General 11/13/18 03/05/19 documented as of this encounter
--- OUTSIDE RECORDS SUMMARY | 2024-02-22 00:56 | XMS_ITS | Encounter Summary ---
Author Organization [facility] [place] [address] Care Team Providers Care Knitter Machine Name Role Phone Yisel Marroquin MD Primary Care Provider [phone] Encounter Details Date Type Department Care Team (Late st Contact Info) Description 02/12/2014 Abstract [facility] [place] Conversion Results [address] [place] [id number] Apd Conversion, Flowsheet Provider, Social History Tobacco [...] Sign Reading Time Taken Comments Blood Pressure 142/82 02/12/2014 1:30 PM EDT Nery rced from APD Conversion Pulse - - Temperature - - Respiratory Rate - - Oxygen Saturation - - Inhaled Oxygen Concentration - - Weight - - Height - - Body Mass Index - - documented in this encounter Plan of Treatment Not on file documented as of this encounter Visit Diagnoses Not on filedocumented in this encounter Care Teams Knitter Machine Relationship Specialty Start Date End Date Yisel Marroquin MD [address] [place] [address] PCP - General 11/13/18 03/05/19 documented as of this encounter
--- OUTSIDE RECORDS SUMMARY | 2024-02-22 00:56 | XMS_ITS | Encounter Summary ---
[place] [address] Care Team Providers Care Hot Box Spotter Name Role Phone Aman Lawrence APRN Primary Care Provider [phone] Encounter Details Date Type Department Care Team (Late st Contact Info) Description 10/31/2015 Telephone [place] [address] Niecy Darden, RD Social History Tobacco Use Types Packs/Day Years [...] encounter Miscellaneous Notes * Telephone Encounter - Niecy Darden - 10/31/2015 1:00 PM EDT Bariatric Surgery Program Patient called today to report she has been trying different foods and has been able to tolerate them. At her follow up visit last week, Jeannie was having trouble tolerating solid foods and meats. In thepast week, she has been able to tolerate thinly sliced chicken, turkey, and ham along with slovak muffins and whole wheat tortillas. She has also tried more fruit and has been able to eat watermelon, grapes, and banana. She is making sure to eat really slowly. Patient is very happy that she has been able to tolerate more foods and she feels she was avoiding these foods because she was afraid of getting sick. Now that pt is not getting sick, she has more confidence in trying these foods. Patient has also been logging her food intake everyday and she reports consuming 60 grams of protein most days. Patient reported she had the bone density test and bloodwork done. Patient had a question about Lunchable meals, she was able to tolerate the ham and cheese with wheat crackers Lunchable and was wondering if it was a good option. Advised patient the Lunchable meals can be expensive and highly processed. Recommend pt buy deli ham and cheese slices and a box of whole wheat crackers to make herself, this would be less expensive and less processed. documented in this encounter Plan of Treatment Not on file documented as of this encounter Visit Diagnoses Not on filedocumented in this encounter Care Teams Hot Box Spotter Relationship Specialty Start Date End Date Aman Lawrence APRN [address] [place] [address] PCP - General 06/16/10 06/27/18 documented as of this encounter
--- OUTSIDE RECORDS SUMMARY | 2024-02-22 00:56 | XMS_ITS | Encounter Summary ---
Author Organization [facility] Address [facility] [place] [address] Care Team Providers Care Garland Machine Operator Name Role Phone Yisel Marroquin MD Primary Care Provider [phone] Encounter Details Date Type Department Care Team (Late st Contact Info) Description 01/25/2015 Interpretation Only Radiology [address] [place] [address] Unknown None Social History Tobacco Use Types [...] Name Priority Date/Time Associated Diagnosis Comments XR FOOT MIN 3 VIEWS RIGHT Routine 01/25/2015 2:54 PM EDT documented in this encounter Results * XR Foot Min 3 views Right (Generic) (01/25/2015 2:54 PM EDT) Anatomical Region Laterality Modality Foot Right Radiographic Ara ging 01/25/2015 2:54 PM EDT Narrative 01/25/2015 2:54 PM EDT APD Historical Result Principal Chemistry Technologist: ??ISAK ??ESCHBACH RIGHT FOOT: INDICATION: ??Injury. COMPARISON: ??Right ankle, January 25, 2015. FINDINGS: Three views of the right foot show no fracture, dislocation, joint effusion, or foreign body. Isak De Dios, DO CHRISTINA/mn [id number] CC: Procedure Note Unknown - 01/22/2019 APD Historical Result Principal Chemistry Technologist: SIAK KENNEDY RIGHT FOOT: INDICATION: Injury. COMPARISON: Right ankle, January 25, 2015. FINDINGS: Three views of the right foot show no fracture, dislocation, jointeffusion, or foreign body. Isak De Dios, DO CHRISTINA/mn [id number] CC: Unknown IMG DX ORDERABLES documented in this encounter Visit Diagnoses Not on filedocumented in this encounter Care Teams Garland Machine Operator Relationship Specialty Start Date End Date Yisel Marroquin MD [address] [place] [address] PCP - General 11/13/18 03/05/19 documented as of this encounter
--- OUTSIDE RECORDS SUMMARY | 2024-02-22 00:57 | XMS_ITS | Encounter Summary ---
Author Organization [facility] Address [facility] [place] [address] Care Team Providers Care Outdoor Illuminating Engineer Name Role Phone Aman Lawrence APRN Primary Care Provider [phone] Reason for Visit * Reason Onset Date Comments Medication Problem 04/18/2013 Encounter Details Date Type Department Care Team (Late st Contact Info) Description 04/18/2013 Telephone Cardiology at [address] [phone] Freddy Mejias MD [facility] [place] [address] Medication Problem Social History Tobacco Use Types Packs/Day Years Used Date Smoking Tobacco: Every Day Cigarettes Alcohol Use Standard Drinks/Week Comments No 0 (1 standard drink = 0.6 oz pur e alcohol) Sex and Gender Information Value Date Recorded Sex Assigned at Not on file Gender Identity Not on file Sexual Orientation Not on file documented as of this encounter Miscellaneous Notes * Telephone Encounter - Marissa Rosas - 04/18/2013 9:20 AM EDT Patient called stating that her insurance won't pay for Lamictal or Protonix and the pharmacy had sent a fax (which I haven't seen) possibly for prior authorization. Is there anything else she can take instead? She seemed irritated that I hadn't seen anything regarding this from the pharmacy and said she didn't have time to deal with it and just wouldn't take it. She can be reached at [phone]. Thank you. documented in this encounter Plan of Treatment Not on file documented as of this encounter Visit Diagnoses Not on filedocumented in this encounter Care Teams Outdoor Illuminating Engineer Relationship Specialty Start Date End Date Aman Lawrence APRN [address] [place] [address] PCP - General 06/16/10 06/27/18 documented as of this encounter
--- OUTSIDE RECORDS SUMMARY | 2024-02-22 00:57 | XMS_ITS | Encounter Summary ---
[place] [address] Care Team Providers Care Supervisor Sterile Processing Name Role Phone Aman Lawrence APRN Primary Care Provider [phone] Encounter Details Date Type Department Care Team (Late st Contact Info) Description 05/14/2013 Notes [place] [address] [facility] [place] [address] Social History Tobacco Use Types Packs/Day Years [...] as of this encounter Progress Notes * Ashley Mclaughlin LD - 05/16/2013 8:46 AM EDT CARDIAC REHAB: INITIAL NUTRITION NOTE PROVIDER: Ashley Mclaughlin MS, RD, LD Encounter Date: 05/14/13 Reason for encounter: Jeannie Rico is a 52 y.o. female who was seen during cardiac rehab to assess need for nutritional intervention. Concerns/Comments: Reports she has gastric bypass many years ago. Originally lost 80# and regained much of it. Has lost 13# since stent. Had looked into GB revision in 2010 d/t staple line breakdown but held off not wanting another open surgery. Today she is inquiring about laparoscopic options. Has been more focused on healthier eating since stent placed. PMHx: Past Medical History Diagnosis Date ??? Hypertension ??? Diabetes mellitus ??? Depression ??? Thyroid disease Wt changes: Date Ht (in) Wt (lb) BMI % body fat Waist circumference 05/10/13 64 240 41.1 44.8 52.25 Medications/Supplements: Current Outpatient Prescriptions on File Prior to Visit Medication Sig Dispense Refill ??? famotidine (PEPCID) 20 mg tablet Take 40 mg by mouth nightly. ??? meloxicam (MOBIC) 7.5 mg tablet Take 7.5 mg by mouth 2 times daily. ??? prazosin (MINIPRESS) 2 mg capsule Take 4 mg by mouth nightly. ??? lamoTRIgine (LAMICTAL) 100 mg tablet Take 100 mg by mouth daily. 1 1/2 to 2 tablets at night ??? traZODone (DESYREL) 100 mg tablet Take 200 mg by mouth nightly. ??? simvastatin (ZOCOR) 40 mg tablet Take 40 mg by mouth nightly. ??? albuterol (PROAIR [...] minute time period 90 tablet 3 ??? metoprolol succinate (TOPROL-XL) 25 mg 24 hr tablet Take 1 tablet by mouth daily. 30 tablet 12 ??? QUEtiapine (SEROQUEL) 25 mg tablet Take 25 mg by mouth as needed. ??? traMADol (ULTRAM) 50 mg tablet Take 50 mg by mouth every 6 hours as needed. ??? methocarbamol (ROBAXIN) 500 mg tablet Take 500 mg by mouth 4 times daily. ??? hydroCODone-acetaminophen (VICODIN) 5-500 mg per tablet Take 1 tablet by mouth as needed. For flare up pain only ??? varenicline (CHANTIX) 0.5 mg tablet Take 0.5 mg by mouth 2 times daily. ??? fluticasone-salmeterol (ADVAIR DISKUS) 500-50 mcg/dose diskus inhaler 1 Disk(s), Inh, Twice daily ??? levothyroxine (SYNTHROID) 50 mcg tablet 50MCG, PO, Once daily ??? b complex vitamins (B COMPLEX-VITAMIN B12) tablet ??? jaesknlpbkog-anpn-utiieumb (COMPLETE MULTIVITAMIN) Tab tablet 1 Tablet(s), PO, Once daily ??? calcium citrate-vitamin D (CITRACAL+D) 315-200 mg-unit per tablet 2 Tablet(s), PO, Twice daily ??? 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 Pt will have the opportunity to attend the 2 comprehensive nutrition lectures on heart healthy eating which are part of the standard cardiac rehab education protocol. Next lectures will be Nov and . ?? Will plan to provide pt with basic review of post bariatric nutrition guidelines using the One Year [employer] Beyond book. ?? Follow-up on question regarding revision for bariatric surgery: checked with program and doubtful there is a laparoscopic option. ?? Pt was informed that the cardiology dietitian (Ashley Mclaughlin, MS, RD, LD) is available upon request to address questions and provide individual counseling as needed. Dietitian is typically scheduled to be in cardiac rehab on Mondays. documented in this encounter Plan of Treatment Not on file documented as of this encounter Visit Diagnoses Not on filedocumented in this encounter Care Teams Supervisor Sterile Processing Relationship Specialty Start Date End Date Aman Lawrence APRN [address] [place] [address] PCP - General 06/16/10 06/27/18 documented as of this encounter
--- OUTSIDE RECORDS SUMMARY | 2024-02-22 00:57 | XMS_ITS | Encounter Summary ---
Author Organization [facility] [place] [address] Care Team Providers Care Engagement Manager Name Role Phone Aman Lawrence APRN Primary Care Provider [phone] Reason for Visit * Reason Comments Coronary Artery Disease Encounter Details Date Type Department Care Team (Late st Contact Info) Description 05/10/2013 8:10 AM EDT Office Visit Cardiology at [address] [address] Freddy Mejias MD [facility] [place] [address] CAD (coronary artery disease) (Primary Dx) Discharge Disposition: Home Social History [...] Sign Reading Time Taken Comments Blood Pressure 112/70 05/10/2013 8:17 AM EDT Pulse 52 05/10/2013 8:17 AM EDT Temperature - - Respiratory Rate - - Oxygen Saturation 97% 05/10/2013 8:17 AM EDT Inhaled Oxygen Concentration - - Weight 108.9 kg (240 lb) 05/10/2013 8:17 AM EDT Height 162.6 cm (5' 4) 05/10/2013 8:17 AM EDT Body Mass Index 41.2 05/10/2013 8:17 AM EDT documented in this encounter Patient Instructions * Patient Instructions* Freddy Mejias MD - 05/10/2013 8:47 AM EDT You are doing great. Continue with your current medications. Congratulations on the weight loss, exercising, and best of all, stopping smoking. Call me if you have any concerns. I will see you back in 6 months. documented in this encounter Progress Notes * Freddy Mejias MD - 05/09/2013 4:19 PM EDT SUBJECTIVE: 52 year old woman with known CAD s/p recent stenting of her LAD. Her cardiac catheterization 90% stenosis of the proximal LAD and 70% stenosis of the mid LAD. She received ALF x 2. EF was60% by Echo. Patient Active Problem List Diagnosis ??? CAD [...] ENDOSCOPY performed by DEE WRIGHT at [facility] ??? Abdomen surgery ??? Hysterectomy No family history on file. History Social History ??? Marital Status: Spouse Name: N/A Number of Children: N/A ??? Years of Education: N/A Social History Main Topics ??? Smoking status: Current Every Day Smoker -- 2.0 packs/day ??? Smokeless tobacco: Not on file ??? Alcohol Use: No ??? Drug Use: Not on file ??? Sexually Active: Not on file Other Topics Concern ??? Not on file Social History Narrative ??? No narrative on file Social history: , no children. Lives in [place]. 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 Smoking: Active smoker, 2ppd Alcohol: Prior alcoholic, in remission for 16 years Illicits: Denies Significant family history: + Family history of CAD Current Outpatient Rx Name Route Sig Dispense Refill ??? FAMOTIDINE 20 MG TABLET Oral Take 40 mg by mouth nightly. ??? MELOXICAM 7.5 MG TABLET Oral Take 7.5 mg by mouth 2 times daily. ??? PRAZOSIN 2 MG CAPSULE Oral Take 4 mg by mouth nightly. ??? LAMOTRIGINE 100 MG TABLET Oral Take 100 mg by mouth daily. 1 1/2 to 2 tablets at night ??? TRAZODONE 100 MG TABLET Oral Take 200 mg by mouth nightly. ??? SIMVASTATIN 40 MG TABLET Oral Take 40 mg by mouth nightly. ??? ALBUTEROL SULFATE HFA 90 MCG/ACTUATION AEROSOL INHALER Inhalation Inhale 2 puffs into the lungs every 4 hours as needed. Use with spacer ??? FERROUS SULFATE 325 MG (65 MG IRON) TABLET,DELAYED RELEASE Oral Take 325 mg by mouth daily. ??? ASPIRIN 81 MG TABLET,DELAYED RELEASE Oral Take 1 tablet by mouth daily. 30 tablet 6 ??? CLOPIDOGREL 75 MG TABLET Oral Take 1 tablet by mouth daily. 30 tablet 6 ??? LISINOPRIL 20 MG TABLET Oral Take 1 tablet by mouth daily. 30 tablet 6 ??? NITROGLYCERIN 0.4 MG SUBLINGUAL TABLET Sublingual Place 1 tablet under the tongue every 5 minutes as needed for Chest pain. Do not use more than 3 doses in 15 minute time period 90 tablet 3 ??? METOPROLOL SUCCINATE ER 25 MG TABLET,EXTENDED RELEASE 24 HR Oral Take 1 tablet by mouth daily. 30 tablet 12 ??? QUETIAPINE 25 MG TABLET Oral Take 25 mg by mouth as needed. ??? TRAMADOL 50 MG TABLET Oral Take 50 mg by mouth every 6 hours as needed. ??? METHOCARBAMOL 500 MG TABLET Oral Take 500 mg by mouth 4 times daily. ??? HYDROCODONE 5 MG-ACETAMINOPHEN 500 MG TABLET Oral Take 1 tablet by mouth as needed. For flare up pain only ??? ADVAIR DISKUS 500 MCG-50 MCG/DOSE POWDER FOR INHALATION Inhalation 1 Disk(s), Inh, Twice daily ??? LEVOTHYROXINE 50 MCG TABLET Oral 50MCG, PO, Once daily ??? B COMPLEX-VITAMIN B12 TABLET Oral ??? COMPLETE MULTIVITAMIN TABLET Oral 1 Tablet(s), PO, Once daily ??? CALCIUM CITRATE-VITAMIN D3 315 MG-200 UNIT TABLET Oral 2 Tablet(s), PO, Twice daily ??? VITAMIN D2 50,000 UNIT CAPSULE Oral [id number], PO, TWICE a week ??? QUETIAPINE ER 50 MG TABLET,EXTENDED RELEASE 24 HR Oral Take 50 mg by mouth daily. ??? CALCIUM 500 MG TABLET Oral Take by mouth daily. ??? TETRACYCLINE 250 MG CAPSULE Oral Take 250 mg by mouth nightly. ??? VARENICLINE 0.5 MG TABLET Oral Take 0.5 mg by mouth 2 times daily. ??? ALBUTEROL SULFATE 5 MG/ML (0.5 %) NEB SOLUTION Nebulization Take 2.5 mg by nebulization every 6 hours as needed. Allergies Allergen Reactions ??? Sumatriptan Hives ??? Oxycodone Other (See Comments) drunk feeling, dizzy ??? Oxycodone-Acetaminophen Other (See Comments) dizziness, feels drunk HPI: Has done well since discharge. Some discomfort at her right femoral access site for the first week (she had a large hematoma). No symptoms of concern. Taking all her medications and notes no side effects. Stopping smoking today. On an ADA diet. Has lost 13 pounds. Walking 2 miles 5 days/week. ROS: The patient denies: General: Unusual fatigue, [...] Healthy appearing, looking stated age Blood pressure 112/70, pulse 52, height 162.6 cm (5' 4), weight 108.863 kg (240 lb), SpO2 97.00%. HEENT: Normocephalic, anicteric, pupils [...] clubbing, cyanosis, or edema Neuro: Grossly intact EKG: sinus isabelle at 50, NS-TW changes ASSESSMENT AND PLAN: No evidence of active ischemia, ventricular or valvular dysfunction or concerning arrhythmias. On guideline therapy. Actively engaging in risk factor modification. We discussed what she might do by way of exercise when the weather turns cold. Will make a Cardiac Rehab referral. Time was spent in a face to [...] Procedure Name Priority Date/Time Associated Diagnosis Comments EKG 12-LEAD Routine 05/10/2013 8:23 AM EDT CAD (coronary artery disease) documented in this encounter Results * EKG 12 Lead (05/10/2013 8:23 AM EDT) Ventricular rate 50 BPM MUSE SYSTEM Atrial Rate 50 BPM MUSE SYSTEM P-R Interval 148 ms MUSE SYSTEM QRS Duration 88 ms MUSE SYSTEM Q-T Interval 400 ms MUSE SYSTEM QTC Calculated (Bezet) 364 ms MUSE SYSTEM Calculated P [place] 34 degrees MUSE SYSTEM Calculated R [place] 53 degrees MUSE SYSTEM Calculated T [place] 50 degrees MUSE SYSTEM INTERPRETATION Sinus bradycardia with sinus arrhythmia Nonspecific T wave abnormality Abnormal ECG When compared with ECG of 17-APR-2013 07:21, Nonspecific T wave abnormality no longer evident in Inferior leads Nonspecific T wave abnormality has replaced inverted T waves in Anterolateral leads QT has shortened Confirmed by MD ELIZALDE ALAN ([id number]) on 05/10/2013 8:40:57 PM MUSE SYSTEM 05/10/2013 8:23 AM EDT 05/10/2013 8:40 PM EDT Freddy Mejias MD ECG ORDERABLES MUSE SYSTEM documented in this encounter Visit Diagnoses Diagnosis CAD (coronary artery disease)- Primary Coronary atherosclerosis of unspecified type of vessel, [place] or graft documented in this encounter Care Teams Engagement Manager Relationship Specialty Start Date End Date Aman Lawrence APRN [address] [place] [address] PCP - General 06/16/10 06/27/18 documented as of this encounter
--- OUTSIDE RECORDS SUMMARY | 2024-02-22 00:57 | XMS_ITS | Encounter Summary ---
[place] [address] Care Team Providers Care Ship'S Carpenter Name Role Phone Aman Lawrence APRN Primary Care Provider [phone] Encounter Details Date Type Department Care Team (Latest Contact Info) Description 05/10/2013 8:57 AM EDT - 05/10/2013 11:59 PM EDT Hospital Encounter Non[place] [id number] CARDIAC REHAB, PROG CRP Cardiac Rehab Prog, Crp None CAD (coronary artery disease) (Primary Dx) Discharge [...] Sig Dispensed Refills Start Date End Date famotidine (PEPCID) 20 mg tablet Take 40 mg by mouth nightly. 07/04/2013 meloxicam (MOBIC) 7.5 mg tablet Take 7.5 mg by mouth 2 times daily. 09/19/2018 prazosin (MINIPRESS) 2 mg capsule Take 6 mg by mouth nightly. 06/01/2019 lamoTRIgine (LAMICTAL) 100 mg tablet Take 200 mg by mouth daily. 1 1/2 to 2 tablets at night 06/14/2016 traZODone (DESYREL) 150 mg Tablet Take 75 mg by mouth nightly. 10/01/2020 simvastatin (ZOCOR) 40 mg tablet Take 40 mg by mouth nightly. 08/02/2013 albuterol (PROAIR HFA) 90 mcg/actuation HFA Aerosol [...] time period 90 tablet 3 04/17/2013 02/07/2019 metoprolol succinate (TOPROL-XL) 25 mg 24 hr tablet Take 1 tablet by mouth daily. 30 tablet 12 04/17/2013 06/06/2013 QUEtiapine (SEROQUEL) 25 mg tablet Take 25 mg by mouth as needed. 07/04/2013 traMADol (ULTRAM) 50 mg tablet Take 50 mg by mouth every 6 hours as needed. 12/03/2015 methocarbamol (ROBAXIN) 500 mg tablet Take 500 mg by mouth 4 times daily. 02/07/2019 hydroCODone-acetaminoph en (VICODIN) 5-500 mg per tablet Take 1 tablet by mouth as needed. For flare up pain only 01/18/2011 02/22/2014 varenicline (CHANTIX) 0.5 mg tablet Take 0.5 mg by mouth 2 times daily. 07/04/2013 fluticasone-salmeterol (ADVAIR DISKUS) 500-50 mcg/dose diskus inhaler 1 Disk(s), Inh, Twice daily 09/23/2010 06/01/2019 levothyroxine (SYNTHROID) 50 mcg tablet 50MCG, PO, Once daily 09/23/2010 06/01/2019 b complex vitamins (B COMPLEX-VITAMIN B12) tablet 09/23/2010 11/19/2016 gwogxwlbwosq-qziw-qfcrg als (COMPLETE MULTIVITAMIN) Tab tablet 1 Tablet(s), PO, Once daily 09/23/2010 11/19/2016 calcium citrate-vitamin D (CITRACAL+D) 315-200 mg-unit per tablet 2 Tablet(s), PO, Twice daily 09/23/2010 11/19/2016 ergocalciferol (VITAMIN D) 50,000 unit capsule [id number], PO, TWICE a week 09/23/2010 11/19/2016 documented as of this encounter Progress Notes * Monique Lopez S - 05/10/2013 11:11 AM EDT Phase II Cardiac Rehabilitation Intake Note Jeannie Lawson Mauroeliz was seen today for the initiation of the Phase 2 Cardiac Rehabilitation program. she is four weeks s/p angina-stent. The program meets three times a week, typically for six weeks and is under the direction of the medical office technology instructor,Dr Yvon Gomez. The program includes telemetry monitored exercise sessions with progressive increases in exercise level as appropriate. Educational classes are also provided regarding medications, low fat/chol diet instruction, weight loss, exercise guidelines, stress management and risk factor modification. The patient's progress will be reviewed with the medical office technology instructor every 2-3 weeks during the courseof the program and with the PCP and/or INCOME TAX ADMINISTRATOR intermittently. For details of individual class sessions, see the separate notes in the CRP files in the Cardiac Exercise room. Exercise Eval Summary Exercise: 20 min Functional Capacity in METs: 2.3-2.6 mets Blood Pressure: Pre Exer: 118/68 Peak Exer: 150/80 Heart Rate: Pre Exer: 58 Peak Exer: 76 Telemetry: SR Symptoms: none Risk Factor Assessment: Lipids: yes, simvastatin started this admit Blood Pressure: yes Weight: 239.4 Lbs. I Body Fat %: 44.8 [place] Body Fat: 22-31 % BMI: 40.9 Waist Circumference: 52.25 In. Diabetes: Per pt. She has been advised to follow diabetes diet. Smoking: yes, 2ppd. Today, she quit and is using an E cigarette Stress: yes, has learned techniques to minimize potential stressful situations Home Exercise: walking 1 mile (1/2 down and back) Comments: She will start the group classes on Tuesday. Total session time= 93 minutes (20 min in exercise, 73 min education and counseling re risk modification, goals for treatment, exercise prescription for class and at home, and review of managing angina Physician Order Sheet for Patient Emergencies signed per Dr Chalino Gomez and sent to medical records. Supervising MD for the day Karlo documented in this encounter Plan of Treatment Not on file documented as of this encounter Visit Diagnoses Diagnosis CAD (coronary artery disease)- Primary Coronary atherosclerosis of unspecified type of vessel, [place] or graft documented in this encounter Care Teams Ship'S Carpenter Relationship Specialty Start Date End Date Aman Lawrence APRN [address] [place] [address] PCP - General 06/16/10 06/27/18 documented as of this encounter
--- OUTSIDE RECORDS SUMMARY | 2024-02-22 00:57 | XMS_ITS | Encounter Summary ---
Author Organization [facility] [place] [address] Care Team Providers Care Telemarketing Fundraiser Name Role Phone Adriana Perla APRN Primary Care Provider [phone] Reason for Referral * Rehabilitation (Routine) - Closed Specialty Diagnoses / Procedures Referred By Vanita dimas Referred To Contact Cardiology Diagnoses Unstable angina Freddy Mejias MD [facility] [place] [address] [facility] [address] Referral ID Status Reason Start Date Expiration Date V isits Requested Visits Authorized [id number] Closed Evaluate and Treat 04/17/2013 10/14/2013 1 1 Reason for Visit * Reason Comments Chest Pain Encounter Details Date Type Department Care Team (Latest Contact Info) Description 04/14/2013 11:39 PM EDT - 04/17/2013 3:43 PM EDT Hospital Encounter Intermediate [place] [id number] Tavon Reed MD [facility] [place] [address] Freddy Mejias MD [facility] [place] [address] Unstable angina; Chronic pain Discharge Disposition: Home Social History Tobacco Use [...] Sign Reading Time Taken Comments Blood Pressure 116/52 04/17/2013 2:29 PM EDT Pulse 61 04/17/2013 2:29 PM EDT Temperature 37.3 ??C (99.1 ??F) 04/17/2013 1 0:50 AM EDT Respiratory Rate 18 04/17/2013 2:29 PM EDT Oxygen Saturation 95% 04/17/2013 2:29 PM EDT Inhaled Oxygen Concentration - - Weight 114.2 kg (251 lb 12.3 oz) 04/17/2013 6:30 AM EDT Height 165 cm (5' 4.96) 04/17/2013 6:30 AM EDT Body Mass Index 41.95 04/17/2013 6:30 AM EDT documented in this encounter Discharge Instructions * Patient Instructions* Tamar Kay - 04/17/2013 11:13 AM EDT Instruction after leaving the hospital Why you were hospitalized: Chest pain and unstable angina Call your doctor or report to the nearest Emergency Department: if you have chest pain or pressure or symptoms similar or worse to that which initially brought you in to the hospital. If you begin sweating for no reason, have nausea/vomiting, headaches, blurred vision, lightheadedness/ fainting spells, or bleeding from the access site please call your doctor and/or call EMS. Activity: If you are very physically active, then take it easy for the next month, until you are seen in cardiology follow up or given permission by your primary care doctor. It will take time for your heart to recover, so while cardiovascular activity is highly encouraged, over working the heart too soon can be dangerous. Also do not do any heavy lifting for the next 7-10 days, as we accessed your heart via the high pressure femoral artery. We do not want you to begin bleeding. If you do so, apply much pressure and report to the nearest emergency department. Driving: Please refrain from driving for 48 hours after your procedure, as the access site is an area of high pressure and abrupt automobile accident can result in excessive bleeding. Also, it would be difficult to place pressure at the catheterization site if it began to bleed as you were driving. Diet: heart healthy diet including low carbohydrates/refined sugars, and much vegetables, fruits, lean protein and whole grains. Bathing: Showers are ok. Do not submerge your wound into a bath or hot tub for about 7-10 days in order to prevent infection. Sexual activity: You should refrain from sexual activity for 1 month following a heart attack. Wound care: since your femoral artery is in an area of high pressure, if it begins to bleed at all,please place a lot of pressure on this and report to the nearest emergency department. The importance of your medications: 1. Metoprolol, a beta ange, lowers your heart rate and blood pressure and is known to decrease mortality rates in the acute post-heart attack setting. 2. Lisinopril, an CHANDRAKANT inhibitor, lowers your blood pressure, is anti- inflammatory, and prevents remodeling and dilation of the brito of your heart. 3. Atorvastatin, a statin, is a lipid-lowering drug. It is also anti- inflammatory and studies show intensive lipid lowering therapy decreases the rate of myocardial events after a heart attack. 4. Aspirin, an anti-platelet drug, is protective against future thrombus formation, especially in the stent. 5. Plavix or clopidogrel, is also an anti-platelet drug, is protective against future thrombus formation, especially in the stent. Return to Work: You were hospitalized for a heart attack. It is very important that you abide by the instructions above with regards to activity, and this applies to work. 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 Follow-Up Appointments Date and Time Provider and Specialty Location Tue 2, 2PM Dr. Stephanie Osman [address] / [place] [address] May 10, 8:10AM Ambrosio Maloney, Cardiology [facility] Your Primary Care Provider: ADRIANA PERLA, PI/SENIOR RESEARCH ASSOCIATE [address] / [place] [address] For questions regarding this document or issues relating to this hospitalization on the Medical Service, please contact your inpatient physician through the [facility] Culinary Chef . Issues afterhours and on weekends will be handled by the Hospitalist staff on-call. * Attachments The following attachments cannot be sent through Care Everywhere. * PERCUTANEOUS CORONARY INTERVENTION: WHAT TO EXPECT AT HOME (BOLIVIAN) documented in this encounter Medications at Time of Discharge Medication Sig Dispensed Refills Start Date End Date aspirin 81 mg EC tablet Take 1 tablet by mouth daily. 30 tablet 6 04/17/2013 09/11/2018 atorvastatin (LIPITOR) 80 mg tablet Take 1 tablet by mouth every evening. 30 tablet 6 04/17/2013 05/10/2013 clopidogrel (PLAVIX) 75 mg tablet Take 1 [...] time period 90 tablet 3 04/17/2013 02/07/2019 pantoprazole (PROTONIX) 40 mg tablet Take 1 tablet by mouth daily. 90 tablet 3 04/17/2013 05/10/2013 metoprolol succinate (TOPROL-XL) 25 mg 24 hr tablet Take 1 tablet by mouth daily. 30 tablet 12 04/17/2013 06/06/2013 QUEtiapine (SEROQUEL) 25 mg tablet Take 25 mg by mouth as needed. 07/04/2013 QUEtiapine (SEROQUEL) 50 mg Tablet SR Take 50 mg by mouth daily. 05/10/2013 traMADol (ULTRAM) 50 mg tablet Take 50 mg by mouth every 6 hours as needed. 12/03/2015 methocarbamol (ROBAXIN) 500 mg tablet Take 500 mg by mouth 4 times daily. 02/07/2019 traZODone (DESYREL) 50 mg tablet Take 50 mg by mouth nightly. 05/10/2013 Calcium 500 mg Tab Take by mouth daily. 01/18/2011 1 hydroCODone-acetamino phen (VICODIN) 5-500 mg per tablet Take 1 tablet by mouth as needed. For flare up pain only 01/18/2011 02/22/2014 tetracycline (ACHROMYCIN;SUMYCIN) 250 mg capsule Take 250 mg by mouth nightly. 01/18/2011 05/10/2013 varenicline (CHANTIX) 0.5 mg tablet Take 0.5 mg by mouth 2 times daily. 07/04/2013 albuterol (PROVENTIL) 5 mg/mL nebulizer solution Take 2.5 mg by nebulization every 6 hours as needed. 05/10/2013 fluticasone-salmetero l (ADVAIR DISKUS) 500-50 mcg/dose diskus inhaler 1 Disk(s), Inh, Twice daily 09/23/2010 06/01/2019 levothyroxine (SYNTHROID) 50 mcg tablet 50MCG, PO, Once daily 09/23/20102018 prazosin (MINIPRESS) 1 mg capsule 3M Capsule(s), PO, QHS 09/23/2010 05/10/2013 lamoTRIgine (LAMICTAL) 150 mg tablet 25M Tablet(s), PO, Once daily 09/23/2010 05/10/2013 b complex vitamins (B COMPLEX-VITAMIN B12) tablet 09/23/2010 11/19/2016 vnfonbikhame-ltme-pdl erals (COMPLETE MULTIVITAMIN) Tab tablet 1 Tablet(s), PO, Once daily 09/23/2010 11/19/2016 calcium citrate-vitamin D (CITRACAL+D) 315-200 mg-unit per tablet 2 Tablet(s), PO, Twice daily 09/23/2010 11/19/2016 ergocalciferol (VITAMIN D) 50,000 unit capsule [id number], PO, TWICE a week 09/23/2010 11/19/2016 documented as of this encounter Progress Notes * Margarita Sharma RN - 04/17/2013 3:37 PM EDT 1540- Discharge orders available. Pt and career and guidance counselor given discharge AVS, discharge summary, percutaneous intervention care instructions, medication information, diabetes tool kit and nutrition information via verbal and written communication. Pt and career and guidance counselor expressed a correct verbal understanding of discharge instructions, percutaneous intervention care instructions and medication information. Pt disconnected from telemetry and IVs removed. Pt brought to [facility] via wheelchair and discharged for home via personal vehicle with caregiver. * Pauline Dunn LD - 04/17/2013 2:31 PM EDT Nutrition Progress Note: S: Per pt: Well, I snack a lot. I don't have lunch but I snack, like on a pop tart. Chewing/Swallowing: Pt edentulous, wears dentures at home O: Patient Active Problem List Diagnosis Code ??? Cervicalgia 723.1 ??? Chronic pain 338.29 ??? Lumbago 724.2 Past Medical History Diagnosis Date ??? Hypertension ??? Diabetes mellitus ??? Depression ??? Thyroid disease Diet: CHO Level2 Height: 165 cm Admit Weight: 114.7 kg BMI: 42 Labs: Ha1c: 6.1, Creat: 0.61 Medications: Colace, Lipitor, Novolog A: RD consulted for pt s/p NSTEMI. Pt is on a CHO level 2 diet. Recommend adding [facility] (Heart Healthy) to current diet order. Pt is s/p gastric bypass in 1999. She reports losing about 150# but gaining 75# back. Pt eats a good breakfast, but then snacking throughout the day till dinner time. Pt admits to snacking on pop tarts and other empty calorie foods throughout the day which I suspect is contributing to her obesity. Reinforced 3 balanced meals a day and snacks of fruits, vegetables, or yogurts only if pt is hungry. Reviewed what a balanced meal consists of and reinforced serving size. 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 Recommend a daily multivitamin with minerals, 500 mcg of vitamin B12 daily, and 600 mg of calcium twice daily. Pt reports taking these vitamins consistently at home. P: 1. Recommend adding [facility] (Heart Healthy) to current diet order. 2. Diet education and handouts provided along with means of contact for future reference. 3. Please order vitamins and minerals supplements post gastric bypass as described above if pt remains hospitalized. 4. Nutrition to follow up in one week, unless consulted sooner. * Andres Good PT - 04/17/2013 11:53 AM EDT Physical Therapy Note Pt worked with cardiac rehab and cardiac rehab reports patient is independent and has no PT needs at this time. RN agrees. D/c inpatient PT at this time. Andres Good, PT Beeper# [id number] * Freddy Mejias MD - 04/17/2013 5:23 AM EDT Inpatient Cardiology Progress Note Patient Name: Jeannie Rico Service: S1 Responsible Attending: Dr. Freddy Mejias Day of hospitalization: 04/15/13 Cardiac cath: 04/16/13 * LVEDP: 25 * 1v-disease, LAD (proximal and mid) * BMS placed x 2 * TTE (04/16/13) EF: 60% Reason for continued hospitalization: unstable angina Active Problems: There are no hospital problems to display for this patient. Interval History: - s/p cardiac cath and TTE yesterday - 1 mg bumetanide - 24h I/O: +735mL, net: -1L - no chest pain overnight - no acute events overnight - denies chest pain, shortness of breath, abdominal pain, nausea, vomiting, headache Telemetry: sinus/sinus arrythmia 45-65 Meds: Scheduled Meds: ??? prazosin Active 2 mg Oral Nightly ??? bumetanide Completed 0.5 mg Intravenous Once ??? potassium chloride Active 20 mEq Oral Q2H ??? DISCONTD: bumetanide Discontinued 1 mg Intravenous Once ??? sodium chloride 0.9 % Active 5 mL Intravenous Q12H ??? morphine Completed 0.6 mg Intravenous Once ??? docusate sodium Active 100 mg Oral BID ??? bumetanide Completed 1 mg Intravenous Once ??? sodium chloride 0.9 % Active 5 mL Intravenous Q12H ??? lamoTRIgine Active 25 mg Oral Daily ??? levothyroxine Active 50 mcg Oral QAM ??? methocarbamol Active 500 mg Oral 4 Times Daily ??? QUEtiapine Active 25 mg Oral Daily with lunch ??? QUEtiapine Active 50 mg Oral Nightly ??? traZODone Active 50 mg Oral Nightly ??? atorvastatin Active 80 mg Oral QPM ??? aspirin Active 81 mg Oral Daily ??? clopidogrel Active 75 mg Oral Daily ??? pantoprazole Active 40 mg Oral Daily ??? nicotine Active 14 mg Transdermal Daily And ??? nicotine Active 1 patch Transdermal Daily ? ? insulin aspart Active 1-4 Units Subcutaneous 4 Times Daily AC & HS ??? metoprolol tartrate Active 12.5 mg Oral Q8H MARIA VICTORIA ??? lisinopril Active 20 mg Oral Daily ??? DISCONTD: prazosin Discontinued 3 mg Oral Nightly Continuous Infusions: ??? sodium chloride 0.9% 100 mL/hr (04/16/13 1230) ??? DISCONTD: sodium chloride 0.9% Discontinued 100 mL/hr (04/16/13 0945) ??? DISCONTD: bivalirudin Discontinued Stopped (04/16/13 1154) ??? sodium chloride 0.9% Active 100 mL/hr (04/16/13 0556) ??? DISCONTD: nitroGLYcerin Discontinued 20 mcg/min (04/16/13 1333) ??? DISCONTD: heparin Discontinued 1,300 Units/hr (04/16/13 0504) PRN Meds:.atropine , fentaNYL (PF) , midazolam , DISCONTD: lidocaine Discontinued, DISCONTD: clopidogrel Discontinued, DISCONTD: bivalirudin Discontinued, DISCONTD: bivalirudin Discontinued, DISCONTD: fentaNYL (PF) Discontinued, DISCONTD: nitroGLYCerin Discontinued, DISCONTD: iohexol Discontinued, DISCONTD: nitroGLYcerin Discontinued, nitroGLYcerin Active, acetaminophen Active, hydroCODone-acetaminophen Active, traMADol Active flu vaccine (36 mos+) (PF) Active, hydrALAZINE Active, dextrose 50% Active, glucagon (human recombinant) Active, DISCONTD: heparin (porcine) Discontinued Vital Signs: Patient Vitals for the past 24 hrs: BP Temp Temp src Pulse Resp SpO2 Weight 04/17/13 1050 105/54 mmHg 37.3 ??C (99.1 ??F) Oral 66 18 95 % - 04/17/13 0920 151/75 mmHg - - 61 18 99 % - 04/17/13 0716 107/48 mmHg 37.3 ??C (99.1 ??F) Oral 52 16 97 % - 04/17/13 0630 - - - - - - 114.2 kg (251 lb 12.3 oz) 04/17/13 0500 125/49 mmHg - - 64 - - - 04/16/13 2228 101/51 mmHg 37 ??C (98.6 ??F) Oral 62 16 92 % - 04/16/13 1921 124/53 mmHg 37.6 ??C (99.7 ??F) Oral 56 16 95 % - 04/16/13 1752 153/67 mmHg 37.5 ??C (99.5 ??F) - 57 16 100 % - 04/16/13 1613 143/68 mmHg 37.1 ??C (98.8 ??F) Oral 57 16 98 % - 04/16/13 1500 159/73 mmHg - - 59 12 97 % - 04/16/13 1445 137/79 mmHg - - 58 16 100 % - 04/16/13 1430 160/69 mmHg - - 56 13 96 % - 04/16/13 1415 154/79 mmHg - - 61 14 94 % - 04/16/13 1400 139/83 mmHg - - 62 10 95 % - 04/16/13 1355 166/81 mmHg - - 65 9 95 % - 04/16/13 1350 171/86 mmHg - - 63 15 97 % - 04/16/13 1345 167/81 mmHg - - 62 20 95 % - 04/16/13 1340 167/76 mmHg - - 57 16 96 % - 04/16/13 1330 177/75 mmHg - - 54 7 - - 04/16/13 1315 185/88 mmHg - - 54 13 - - 04/16/13 1300 189/78 mmHg - - 53 21 - - 04/16/13 1245 184/75 mmHg - - 51 19 - - 04/16/13 1230 167/75 mmHg - - 50 15 - - 04/16/13 1220 180/78 mmHg - - 55 15 - - 04/16/13 1215 162/91 mmHg - - 52 14 - - 04/16/13 1210 216/99 mmHg - - 56 21 - - Physical Exam: GEN: NAD, obese, resting comfortably in bed HEENT: AT/NC, PERRL, EOMI, anicteric. MMM CV: Normal rate, regular rhythm. Normal S1/S2, without M/R/G. JVP hard to access PULM: decreased breath sounds at bases. Clear lung field in the mid and apical lawson. ABD: Soft, nontender, nondistended, no masses. Normo-active bowel sounds. No flank pain or ecchymoses noted. EXT: +1 lower extremity edema, 2+ DP pulses bilaterally, good right femoral pulse without bruit/thrill. Moderate sized hematoma. that does not appear to be active bleeding. SKIN: Warm and dry without rashes or lesions. Lab Comments: Recent Labs Basename 04/17/13 0351 04/16/13 04004/14/13 2110 WBC 10.8* 9.0 12.5* HGB 9.8* 11.3 13.3 HCT 31.5* 37.2 41.6 PLATELET 226 218 265 Recent Labs Basename 04/16/13 0407 INR 1.0 Recent Labs Basename 04/17/13 0351 04/16/13 0407 04/14/13 2110 NA 139 141 138 K 3.5 4.1 4.2 CL 105 107 99 CO2 26 32* 27 BUN 9 12 16 CREATININE 0.61* 0.64* 0.78 Recent Labs Basename 04/15/13 0454 AST 14 ALT 12 ALKPHOS 86 BILITOT 0.1* BILIDIR <0.1 Recent Labs Basename 04/17/13 0351 04/16/13 0407 04/15/13 0454 CALCIUM 9.0 8.7 8.9 MAGNESIUM -- -- 0.84 PHOS -- -- 3.5 Recent Labs Basename 04/16/13 1200 04/15/13 1028 04/15/13 0454 CK 39 47 36 TROPONINT <0.03 <0.03 <0.03 Pertinent Radiographic/Diagnostic Results: 04/16/13 Cardiac cath: - 1v-disease - 90% stenosis proximal 1 segment of LAD - 60% stenosis proximal 2 segment of LAD - LVEDP: 25 - 2 BMS placed 04/16/13 TTE: 1. Technically difficult study, even with constrast. 2. The left ventricular chamber size is normal. There is mild septal hypertrophy of the left ventricle. There is normal global left ventricular systolic function. Ejection fraction is estimated to be60%. There are no left ventricular segmental wall motion abnormalities evident. 3. The right ventricle is probably normal in size and systolic function. The estimated pulmonary artery systolic pressure is 23 mmHg. 4. There is no hemodynamically significant valve disease evident 04/09/13 TTE: 1. Definity contrast (one 1.5 ml vial)was used to enhance endocardial definition. Excess contrast was discarded. 2. The left ventricle is probably normal in size.Left ventricular wall thickness is normal.There are no left ventricular segmental wall motion abnormalities.There is normal global left ventricular systolic function. Ejection fraction is estimated to be 60%. 3. The right ventricle is not well visualized.The right ventricle is normal in size.Right ventricular wall thickness is normal. Right ventricular global systolic function is normal.Pulmonary artery hypertension could not be assessed due to inadequate tricuspid regurgitation jet. 4. There is no hemodynamically significant valve disease. Assessment: 52yo obese female with history of HTN, DM2, anxiety/depression, presents with two week history of chest pain relieved with SL NTG. Patient underwent cardiac cath yesterday which showed stenosis in the LAD. Two BMS was placed and elevated LVEDP was noted of 25. Patient does have a large ecchymosis in the right groin area (site of cath) that does not appear to be actively bleeding or spreading. I feel this wound will start to resorb and improve over the next few days. We will follow up with H/H at noon to ensure she is not actively bleeding. She does have good pulses with no thrill or bruit noted so I feel she is stable vascularly. Patient is otherwise doing well and mobile, we will consider discharge later this afternoon if patient continues to do well. I feel patient can benefit from diuresis as raza had been receiving nearly 3L of fluid since admission and she does have decreased breathsounds at bases which may be attributable to fluids. We will give 0.5 bumetanide today and assess output. Plan: # Unstable Angina - Aspirin 81mg daily - Plavix 75mg daily - Atorvastatin 80mg daily - Metoprolol 12.5mg q8h - Lisinopril 20mg daily - d/c Nitroglycerin ggt - consulted with cardiac rehab # Hypertension - Hydralazine PRN - prazosin 2mg - will consider 25mg thiazide at discharge as patient is a bit hypertensive early this AM. # ?Diabetes Mellitus T2 - A1c: 6.1 - ISS # COPD - Duonebs PRN # Hypothyroidism - TSH 1.3 - Continue Synthroid 50mcg daily # Chronic Pain - Vicodin q4h PRN - Methocarbamol 500mg QID PRN - Tramadol 50mg q6h PRN for pain # Depression/Anxiety/Schizophrenia - Seroquel 25mg qAM / 50mg qPM - Lamotrigine 25mg daily # GERD - Pantoprazole 50mg daily # Tobacco Dependence - Nicotine patch - Smoking cessation consult # Routine Maintenance - DVT PPX: ambulation - GI PPX: Pantoprazole 40mg daily - IVF: OFF / Hernandez: OFF - Diet: Carb-controlled diet - PT/OT/cardiac rehab consulted - Code Status: FULL CODE (DPOA: Rae, elder sister) Breanna Somers DO (PGY-1) Internal Medicine Resident Pager [phone] STAFF ADDENDUM Patient interviewed and examined. Medical record reviewed. I agree with the Intercurrent History Past Medical History Physical Exam Objective Data Assessment and Plan as detailed by Dr. Somers, with whom the patient was interviewed, examined, and discussed, with the following additions and/or exceptions. Successful placement of ALF x 2 to the LAD. High LVEDP. Mild pulmonary edema post-procedure. Good diuresis with IV diuretics. Has a small access site hematoma witha large ecchymosis. The is no bruit and no thrill. Distal pulses and sensation are intact. Patient has been up an ambulating. To be seen by Cardiac Rehab. On guideline therapy. I think the patient can be safely discharge this afternoon with early PCP and 4 week Cardiology follow-up. * Corie Alvarado MD - 04/17/2013 4:02 AM EDT Post Cath Note S: No chest pain, dyspnea, abdominal, groin, or back pain. Dressing clean and dry, no signs of infection, no bleeding from R femoral access site. O: Filed Vitals: 04/16/13 2228 BP: 101/51 Pulse: 62 Temp: 37 ??C (98.6 ??F) Resp: 16 General: Lying in bed in NAD. Abd: No flank or back tenderness. Groin: Right femoral access site with large hematoma. Mild tenderness and induration. Marked with pen. No bruit. Ext: warm, sensation intact, 2+ PT pulses. A/P: s/p cath with large hematoma that appears stable. Will continue to monitor. * Katerine Urban RN - 04/16/2013 8:49 PM EDT Noted increase pain after she got out of bed; vicoden given for pain 9/10 on pain scale; noted she has a hematoma; soft on the thigh but hard and tender at the groin hernan area. Call to MD to check the right groin; no new orders at this time. * Andres Good PT - 04/16/2013 2:41 PM EDT Physical Therapy Note Pt had cardiac cath today and is on bedrest until later today. Will follow up tomorrow as appropriate. Andres Good PT Beeper# [id number] * Jeremy Radford OT - 04/16/2013 10:24 AM EDT Chart reviewed and orders received. 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 RN reports patient mobilizingwell and able to perform own ADLS. We will monitor and f/u as needed for evaluation. Jeremy Radford OTR/L [id number] * Freddy Mejias MD - 04/16/2013 6:10 AM EDT Inpatient Cardiology Progress Note Patient Name: Jeannie Rico Service: S1 Responsible Attending: Dr. Freddy Mejias Day of hospitalization: 04/15/13 Reason for continued hospitalization: unstable angina Active Problems: There are no hospital problems to display for this patient. Interval History: - cardiac cath/ECHO today - TSH 1.3, A1c: 6.1 - no chest pain overnight - no acute events overnight - changed fluid from 200cc -> 100cc/hr. (was on 200cc/hr since 4pm yesterday) Telemetry: sinus/sinus arrythmia 45-65 Meds: Scheduled Meds: ??? sodium chloride 0.9 % Active 5 mL Intravenous Q12H ??? diaZEPam Completed 5 mg Oral Once ??? diphenhydrAMINE Completed 25 mg Oral Once ??? sodium chloride 0.9 % Active 5 mL Intravenous Q12H ??? lamoTRIgine Active 25 mg Oral Daily ??? levothyroxine Active 50 mcg Oral QAM ??? methocarbamol Active 500 mg Oral 4 Times Daily ??? prazosin Active 3 mg Oral Nightly ??? QUEtiapine Active 25 mg Oral Daily with lunch ??? QUEtiapine Active 50 mg Oral Nightly ??? traZODone Active 50 mg Oral Nightly ??? atorvastatin Active 80 mg Oral QPM ??? aspirin Active 81 mg Oral Daily ??? clopidogrel Active 75 mg Oral Daily ??? pantoprazole Active 40 mg Oral Daily ??? nicotine Active 14 mg Transdermal Daily And ??? nicotine Active 1 patch Transdermal Daily ? ? insulin aspart Active 1-4 Units Subcutaneous 4 Times Daily AC & HS ??? metoprolol tartrate Active 12.5 mg Oral Q8H MARIA VICTORIA ??? lisinopril Active 20 mg Oral Daily ??? lisinopril Completed 15 mg Oral Once Continuous Infusions: ??? sodium chloride 0.9% Active 100 mL/hr (04/16/13 1230) ??? DISCONTD: sodium chloride 0.9% Discontinued 100 mL/hr (04/16/13 0945) ??? DISCONTD: bivalirudin Discontinued Stopped (04/16/13 1154) ??? sodium chloride 0.9% Active 100 mL/hr (04/16/13 0556) ??? nitroGLYcerin Active 10 mcg/min (04/16/13 1250) ??? heparin Active 1,300 Units/hr (04/16/13 0504) PRN Meds:.perflutren protein-A microspheres Completed, atropine Active, fentaNYL (PF) Active, midazolam Active, DISCONTD: lidocaine Discontinued, DISCONTD: clopidogrel Discontinued, DISCONTD: bivalirudin Discontinued, DISCONTD: bivalirudin Discontinued, DISCONTD: fentaNYL (PF) Discontinued, DISCONTD: nitroGLYCerin Discontinued, DISCONTD: iohexol Discontinued, DISCONTD: nitroGLYcerin Discontinued,nitroGLYcerin Active, acetaminophen Active hydroCODone-acetaminophen Active, traMADol Active, flu vaccine (36 mos+) (PF) Active, hydrALAZINE Active, dextrose 50% Active, glucagon (human recombinant) Active, heparin (porcine) Active Vital Signs: Patient Vitals for the past 24 hrs: BP Temp Temp src Pulse Resp SpO2 Height Weight 04/16/13 1300 189/78 mmHg - - 53 21 - - - 04/16/13 1245 184/75 mmHg - - 51 19 - - - 04/16/13 1230 167/75 mmHg - - 50 15 - - - 04/16/13 1220 180/78 mmHg - - 55 15 - - - 04/16/13 1215 162/91 mmHg - - 52 14 - - - 04/16/13 1210 216/99 mmHg - - 56 21 - - - 04/16/13 0900 - - - - - - 165.1 cm (5' 5) - 04/16/13 0727 134/69 mmHg 37 ??C (98.6 ??F) Oral 52 18 94 % - - 04/16/13 0551 - - - - - - - 115.2 kg (253 lb 15.5 oz) 04/16/13 0402 145/72 mmHg 37.2 ??C (99 ??F) Oral 59 18 96 % - - 04/15/13 1623 135/58 mmHg 36.7 ??C (98.1 ??F) Oral 59 18 96 % - - Physical Exam: GEN: NAD, obese, resting comfortably in bed HEENT: AT/NC, PERRL, EOMI, anicteric. MMM CV: Normal rate, regular rhythm. Normal S1/S2, without M/R/G. No JVD. PULM: Lungs clear to auscultation bilaterally. No increased WOB. ABD: Soft, nontender, nondistended, no masses. Normo-active bowel sounds. EXT: WWP without edema, cyanosis, or clubbing. SKIN: Warm and dry without rashes or lesions. Lab Comments: Recent Labs Basename 04/16/13 0407 04/14/130 WBC 9.0 12.5* HGB 11.3 13.3 HCT 37.2 41.6 PLATELET 218 265 Recent Labs Basename 04/16/13 0407 INR 1.0 Recent Labs Basename 04/16/13 0407 04/14/13 2110 NA 141 138 K 4.1 4.2 CL 107 99 CO2 32* 27 BUN 12 16 CREATININE 0.64* 0.78 Recent Labs Basename 04/15/13 0454 AST 14 ALT 12 ALKPHOS 86 BILITOT 0.1* BILIDIR <0.1 Recent Labs Basename 04/16/13 0407 04/15/13 0454 CALCIUM 8.7 8.9 MAGNESIUM -- 0.84 PHOS -- 3.5 Recent Labs Basename 04/16/13 1200 04/15/13 1028 04/15/13 0454 CK 39 47 36 TROPONINT <0.03 <0.03 <0.03 Pertinent Radiographic/Diagnostic Results: 04/09/13 TTE: 1. Definity contrast (one 1.5 ml vial)was used to enhance endocardial definition. Excess contrast was discarded. 2. The left ventricle is probably normal in size.Left ventricular wall thickness is normal.There are no left ventricular segmental wall motion abnormalities.There is normal global left ventricular systolic function. Ejection fraction is estimated to be 60%. 3. The right ventricle is not well visualized.The right ventricle is normal in size.Right ventricular wall thickness is normal. Right ventricular global systolic function is normal.Pulmonary artery hypertension could not be assessed due to inadequate tricuspid regurgitation jet. 4. There is no hemodynamically significant valve disease. Med: Aspirin 81 plavix 75 Lisinopril 20 Atorvastatin 80 Heparin infusion Nitro gtt NS 100/hr Metoprolol 12.5 q8h Prazosin 3 ISS Trazodone 50 Quetiapine 25 pantoprazole 40 Lamotrigine 25 Levothyroxine 25 methocarbamol Assessment: 52yo obese female with history of HTN, DM2, anxiety/depression, presents with two week history of chest pain relieved with SL NTG. Patient has had similar episode a week ago but left without admission and had normal resting BRITTNEY. This admission EKG notable for t-wave inversions in anterior leads with negative troponins to date. Patient will go for cardiac cath and TTE study today. Plan: # Unstable Angina - Cardiac Catheterization today - enzymes negative thus far - Daily EKG's - Aspirin 81mg daily - Plavix 75mg daily (received plavix load 300mg on admission) - Atorvastatin 80mg daily - Nitroglycerin ggt - Metoprolol 12.5mg q8h - Lisinopril 20mg daily - TTE Tuesday, post-catheterization # Hypertension - Nitroglycerin drip - Uptitrate double-product control - Hydralazine PRN # ?Diabetes Mellitus T2 - A1c: 6.1 - ISS # COPD - Duonebs PRN # Hypothyroidism - TSH 1.3 - Continue Synthroid 50mcg daily # Chronic Pain - Vicodin q4h PRN - Methocarbamol 500mg QID PRN - Tramadol 50mg q6h PRN for pain # Depression/Anxiety/Schizophrenia - Seroquel 25mg qAM / 50mg qPM - Lamotrigine 25mg daily # GERD - Pantoprazole 50mg daily # Tobacco Dependence - Nicotine patch - Smoking cessation consult # Routine Maintenance - DVT PPX: Heparin ggt / Venodynes / Ambulation - GI PPX: Pantoprazole 40mg daily - IVF: OFF / Hernandez: OFF - Diet: Carb-controlled diet - PT/OT consulted - Code Status: FULL CODE (DPOA: Rae, elder sister) Breanna Somers DO (PGY-1) Internal Medicine Resident Pager [phone] STAFF ADDENDUM Patient interviewed and examined. Medical record reviewed. I agree with the Intercurrent History Past Medical History Physical Exam Objective Data Assessment and Plan as detailed by Dr. Somers, with whom the patient was interviewed, examined, and discussed, with the following additions and/or exceptions. No recurrent chest pain or pressures. Tolerating medications. Pre-cath fluids started early and at a higher rate than ordered (in face of eEH going down). Some basilar rales on exam. Telemetry benign. Agree with dharmesh IV furosemide. Can safely proceed with catheterization and possible PCI. * Juliann Crystal RN - 04/15/2013 12:37 PM EDT Pt up to walk and post walk pt states she is having chest pressure. This RN checked on pt and pt states that her pain is a 4/10 and radiates down left arm. Pt denies SOB, lightheaded, dizziness. MD Judith Gallegos notified. Nitro SL given and NItro drip titrated to 30mcg (See MAR). EKG ordered. Will continue to monitor. * Freddy Mejias MD - 04/15/2013 12:41 AM EDT Cardiology H&P CC: Chest pain History of present illness: Ms. Rico is a 52 year-old obese female and active smoker w/ depression/anxiety and chronic pain presenting with Chest pain. She was recently seen in the ED for chest pain on 04/09 with T-wave inversions seen in the anterior leads, negative biomarkers and an unremarkable transthoracic echocardiogram. The pain had started 5-7 days prior to her coming in (approximately 2 weeks from today), described as a substernal chest pressure radiating down her left arm precipitated by walking, relieved by rest. She was advised to stay for further work-up but declined, stating she was needed at home for care of her Schitzophrenic , and promised instead to follow-up with her PCP. Thus, she was given Aspirin and was allowed to follow-up outpatient. As promised, she went to her PCP later that week who prescribed her Nitroglycerin tablets and recommended she follow-up with a Shell Worker. This appointment was scheduled for 04/19 (5 days from today). In the interim however, her chest pain continued to persist. She would get ~2 episodes throughoutthe day that are relieved by Nitroglycerin. Today, she had 2 more episodes of chest pain at 11AM and then at 8PM prior to her arrival to the ED. These episodes although similar in quality, were much more intense and the most recent episode was only partially relieved with a Nitro tab. She was giventwo more tablets of nitroglycerin along with 325mg of Aspirin in route to [facility]. While in the ED, she had another episode of chest pain and an EKG was performed that showed deepening of her already present T-wave inversions in anterior leads. Her first enzyme is negative. She wasstarted on a Heparin & Nitroglycerin drips and her chest pain resolved. Review of systems: General: no fevers, chills, weight change, night sweats, fatigue Eyes: no change in vision ENT: no dysphagia, no change in hearing Cardiovascular: no chest pain, palpitations, orthopnea or PND Respiratory: no dyspnea. + smoker's cough with occasional sputum production. GI: no abdominal pain, nausea, vomiting, diarrhea, constipation, maroon or dark stools : no hematuria or dysuria Musculoskeletal: + Joint pains & muscle aches (chronic) Neuro: no numbness or tingling, no focal weakness Hem/Lymph: no easy bruising or bleeding Psych: no thoughts of harming self or others; no hallucinations Past Medical History: Hypertension GERD Type 2 diabetes: no current treatment Hypothyroidism Anxiety and panic disorder Depressive disorder NOS Borderline Personality Disorder PTSD Hospitalizations in 1993 for suicide attempt, 2005 for severe anxiety Schizophrenia - Polysubstance abuse in remission- no alcohol in 14 years History of bulimia- no purging in 4 years Nonepileptic seizures Hidradenitis suppurativa treated with antibiotics COPD Tobacco dependence: current 1 PPD cigarettes a day, started at age 11-high of 2.5 packs a day Past surgical history: Open [employer] en Y gastric bypass 05/12/00 Panniculectomy 05/12/00 Open cholecystectomy ~1991 CHIP/BSO 1985 in [place] for ovarian cyst Complete dental extractions 1998 T & A Medications: Albuterol Inhaler PRN Nexium 20mg qAM Advair BID Vicodin 5-500 q4-6h PRN for pain Lamotrigine 150mg daily Synthroid 50mcg daily Methocarbamol 500mg BID PRN for pain Prazosin 3mg daily Seroquel 25mg qAM / 50mg qPM Tramadol 50mg q6h PRN for pain Trazodone 50mg qPM for sleep Allergies: Allergies Allergen Reactions ??? Sumatriptan Hives ??? Oxycodone Other (See Comments) drunk feeling, dizzy ??? Oxycodone-Acetaminophen Other (See Comments) dizziness, feels drunk Social history: , no children. Lives in [place]. 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 Smoking: Active smoker, 2ppd Alcohol: Prior alcoholic, in remission for 16 years. :) Illicits: Denies Significant family history: + Family history of CAD Physical Exam: Vitals: Filed Vitals: 04/15/13 0200 BP: 148/67 Pulse: 58 Temp: Resp: Gen: Obese woman sitting up in bed, conversant in NAD HEENT: OP clear, MMM, JVD ~8cm H20 CVS: RRR, No appreciable murmurs, rubs or gallops. Lungs: CTAB Abdomen: Obese, soft, NT/ND, +BS Skin: warm and dry, no lesions Neuro: CN II-XII intact, strength 5/5 in all extremities MSK: No edema or cyanosis. +2 femoral, popliteal & pedal pulses BL Laboratory: All labs reviewed in EDH and are remarkable for: WBC 12.5 Troponin <0.03 / CK 49 Radiology: 04/09/2013 TTE (bedside, ED): 1. Definity contrast (one 1.5 ml vial)was used to enhance endocardial definition. Excess contrast was discarded. 2. The left ventricle is probably normal in size.Left ventricular wall thickness is normal.There are no left ventricular segmental wall motion abnormalities.There is normal global left ventricular systolic function. Ejection fraction is estimated to be 60%. 3. The right ventricle is not well visualized.The right ventricle is normal in size. Right ventricular wall thickness is normal.Right ventricular global systolic function is normal.Pulmonary artery hypertension could not be assessed due to inadequate tricuspid regurgitation jet. 4. There is no hemodynamically significant valve disease. Assessment: Ms. Rico is a 52 year-old obese female with HTN (undiagnosed), chronic pain and anxiety/depression presenting with 2 weeks of persistent chest pain and admitted for Unstable Angina. Despite her having a regular PCP, she has poorly- controlled hypertension and un-treated Diabetes mellitus Type2. Her DUARTE-risk score is 3 (ASA use in last week, Severe angina >2 episodes in 24hrs, EKG changes) with a 13% 14-day mortality. We will keep her over the weekend, cycle troponins, control her chest pain (currently on a Nitroglycerin drip) and optimize medical management per ACS protocol. Although this is moderate risk, the ischemic changes on EKG during active chest pain and her overall story is co ncerning for a Type-I SD. I suspect she will need a Cardiac catheterization on Tuesday. I will Plavix load and start double-product control (including CHANDRAKANT) but these should be stopped if further work-up reveals multi-vessel disease and is a candidate for bypass surgery. Additionally, she has poorly controlled blood pressure despite being on a Nitroglycerin drip and not on any antihypertensives at home. She also has diabetes (per chart review) not on any treatment. Will need to come up with a good antihypertensive regimen (may just optimize double-product control, e specially CHANDRAKANT if diabetic) and follow-up on A1C/lipid profile. Will continue all other home psychiatric medications per her home regimen. Plan: # Unstable Angina - Cardiac Catheterization Tuesday - Cycle Enzymes q6 hours - Daily EKG's - Aspirin 81mg daily - Plavix 75mg daily (received plavix load 300mg on admission) - Atorvastatin 80mg daily - Heparin ggt - Nitroglycerin ggt (with parameters) - Metoprolol 12.5mg q6h (when HR permits) - Lisinopril 5mg daily (will need to uptitrate) - TTE Tuesday, post-catheterization # Hypertension - Nitroglycerin drip - Uptitrate double-product control - Hydralazine PRN # ?Diabetes Mellitus T2 - F/u Hemoglobin A1C # COPD - Duonebs PRN # Hypothyroidism - F/u TSH - Continue Synthroid 50mcg daily # Chronic Pain - Vicodin q4h PRN - Methocarbamol 500mg QID PRN - Tramadol 50mg q6h PRN for pain # Depression/Anxiety/Schizophrenia - Seroquel 25mg qAM / 50mg qPM - Lamotrigine 25mg daily # GERD - Pantoprazole 50mg daily # Tobacco Dependence - Nicotine patch - Smoking cessation consult # Routine Maintenance - DVT PPX: Heparin ggt / Venodynes / Ambulation - GI PPX: Pantoprazole 40mg daily - IVF: OFF / Hernandez: OFF - Diet: Carb-controlled diet - PT/OT consulted - Disposition: Home in 2-3 days - Code Status: FULL CODE (DPOA: Rae, elder sister) Kasia Anthony, PGY-2 Pager [phone] STAFF ADDENDUM Patient interviewed and examined. Medical record reviewed. I agree with the History of Present Illness Past Medical History Family History, Social History Review of Systems Physical Exam Objective Data Assessment and Plan as detailed by Dr. Cruz, with whom the patient was interviewed, examined, and discussed, with the following additions and/or exceptions. Presents with typical exertional angina (exertional substernalchest pain relieved by SL NTG) that has progressed to rest pain with evolving anterolateral ST-TW changes. Cardiac enzymes negative. Pain free on IV heparin with DAP, good double product control, bronson statin. Recent echo 04/09 demonstrating normal EF, no segmental WMAs and no significant valve disease. On exam her CVP is normal. Lungs have only dependent rales that clear. No murmurs/rubs/gallops.Abdomen benign. 2+ and symmetrical pulses. Neuro grossly intact. Labs as per eDH. I recommended proceeding directly to a diagnostic cardiac catheterization with possible PCI given her high DUARTE score, rest pain and EKG changes. Fully discussed the risks and benefits of this procedure and the alternative approach to her management. She agrees to the catheterization. Discussed the risks v benefits of a ALF v BMS. She has no surgery planned for the near future. She is willing to take DAP for at least the next year. Bleeding has not been a particular problem. Given her size may want to consider radial access. documented in this encounter Procedure Notes * Provider, Scanning - 04/18/2013 1:04 PM EDTAssociated Order(s): SCAN DOC: FORMS EXAMINER * Provider, Scanning - 04/16/2013 4:59 PM EDTAssociated Order(s): CARDIAC CATHETERIZATION * Cydney Mccurdy - 04/16/2013 11:59 AM EDTAssociated Order(s): CARDIAC CATHETERIZATION documented in this encounter ED Notes * Donna Saunders RN - 04/15/2013 12:19 AM EDT Awaiting transfer to [facility]. * Donna Saunders RN - 04/15/2013 12:17 AM EDT MD in to admit. * Vandana Marte RN - 04/14/2013 11:13 PM EDT At 2300 pt began to complain of 4/10 mid sternal chest pain with radiation into the left arm. 174/83 with HR 57. She received 1 spray of SL NTG with almost immediate relief of pain to 2/10 localized only in the left arm. At 2309 received a second spray of SL NTG which decreased her pain to 0/10. 168/90. Pt is alert and oriented. NTG drip initiated. Report given to Donna Saunders RN. * Tavon Reed MD - 04/14/2013 10:18 PM EDT Chief Complaint Patient presents with ??? Chest Pain This is a 52 yo f with a h/o DM, Htn and a current smoker who presents with persistent chest pain. I saw her on 04/09 with one week of sx that consisted of substernal cp to left arm that occurred withevery episode of walking even a few hundred yards in addition to some rest symptoms. Her ECG at that time had inverted T waves anteriorly that was unchanged and a negative first troponin. Admission was recommended and she refused due to having to take care of her . She had a resting ECHO that showed no wall motion abnormalities and f/u'd up with her PCP the next day who has arragned for her to see a supervisor model making this coming . She comes in tonight because she had two episodes today that were worse than ever. The current one started at 8pm and was finally relieved after 2 ntg's at home, 2 in the ambulance, and 325 mg of aspirin.Patient is a 52 y.o. female presenting with chest pain. Chest Pain The current episode started more than 2 weeks ago. The problem occurs frequently. The problem has been gradually worsening. The pain is present in the substernal region. The symptoms are aggravated by exertion. Associated symptoms include arm pain. Pertinent negatives include no vomiting or no weakness. Her past medical history is significant for diabetes and hypertension. Her family medical history is significant for CAD in family. Allergies Allergen Reactions ??? Sumatriptan Hives ??? Oxycodone Other (See Comments) drunk feeling, dizzy ??? Oxycodone-Acetaminophen Other (See Comments) dizziness, feels drunk Review of Systems Constitutional: Negative for fever. HENT: Negative for congestion. Eyes: Negative for visual disturbance. Respiratory: Negative for shortness of breath. Cardiovascular: Positive for chest pain. Gastrointestinal: Negative for vomiting. Genitourinary: Negative for dysuria. Musculoskeletal: Negative for myalgias and arthralgias. Skin: Negative for rash. Neurological: Negative for weakness. Hematological: Does not bruise/bleed easily. Psychiatric/Behavioral: Negative for confusion. Physical Exam Nursing note and vitals reviewed. Constitutional: She appears well-developed and well-nourished. HENT: Head: Normocephalic and atraumatic. Eyes: Conjunctivae normal are normal. No scleral icterus. Neck: Neck supple. No JVD present. Cardiovascular: Normal rate and regular rhythm. Pulmonary/Chest: Effort normal and breath sounds normal. Abdominal: Soft. There is no tenderness. Musculoskeletal: She exhibits no edema and no tenderness. Neurological: She is alert. She has normal strength. Skin: Skin is warm and dry. Procedures MDM My review of her ECG is that it shows NSR at a rate of 67 with flipped T's anteriorly that it unchanged from prior. Recent Results (from the past 24 hour(s)) ELECTROLYTES PANEL Component Value Range Sodium 138 135 - 145 mmol/L Potassium 4.2 3.5 - 5.0 mmol/L Chloride 99 98 - 107 mmol/L CO2 27 22 - 31 mmol/L Anion Gap 12 5 - 15 mmol/L BUN Component Value Range BUN 16 8 - 18 mg/dL CREATININE Component Value Range Creatinine 0.78 0.70 - 1.20 mg/dL Estimated GFR >60 >=60 GLUCOSE, RANDOM Component Value Range Glucose Lvl 114 60 - 199 mg/dL CARDIAC ENZYMES Component Value Range Troponin-T <0.03 <=0.03 ng/mL CK, Total 49 0 - 160 unit/L CBC (WITH DIFF) Component Value Range WBC 12.5 (*) 4.0 - 10.0 x10(3)/mcL RBC 4.58 3.93 - 5.22 x10(6)/mcL Hemoglobin 13.3 11.2 - 15.7 gm/dL Hematocrit 41.6 34.0 - 45.0 % MCV 90.8 79.0 - 94.0 fL MCH 29.0 26.6 - 32.2 pg MCHC 32.0 32.0 - 36.5 gm/dL Platelets 265 145 - 370 x10(3)/mcL RDWSD 50.8 (*) 35.0 - 46.0 fL RDWCV 15.4 (*) 10.9 - 14.4 % MPV 10.3 9.0 - 12.0 fL BLUE TUBE HOLD Component Value Range Blue Hold Sample in lab. GOLD TUBE HOLD Component Value Range Gold Hold Sample in lab. DIFFERENTIAL, AUTOMATED Component Value Range Neutrophils % 59.6 34.0 - 71.0 % Neutr Abs (ANC) 7.47 (*) 1.50 - 6.30 x10(3)/mcL Lymphocytes % 31.9 19.0 - 53.0 % Lymphocytes Abs 4.0 (*) 1.0 - 3.6 x10(3)/mcL Monocytes % 6.8 4.0 - 13.0 % Monocyte Abs 0.8 0.2 - 1.0 x10(3)/mcL Eosinophils % 1.0 0.0 - 7.0 % Eosinophils Abs 0.1 0.0 - 0.5 x10(3)/mcL Basophils % 0.5 0.0 - 2.0 % Basophils Abs 0.1 0.0 - 0.2 x10(3)/mcL Immature Gran % 0.20 0.00 - 0.66 % Fartun Gran Abs 0.03 0.00 - 0.05 x10(3)/mcL According to the DUARTE Risk Score for ED patients with possible ACS, ([facility] 2009February 03:[id number]): 1) Age ? 65 years? +1 2) ? 3 Risk Factors for CAD? +1 3) Known CAD (stenosis ? 50%)? +1 4) ASA Use in Past 7d? +1 5) Severe angina (? 2 episodes w/in 24 hrs)? +1 6) ST changes ? 0.5mm? +1 7) Positive Cardiac Marker? +1 This patient's DUARTE Risk is: 3 with a 14-day mortality of 19%. Score: 14-day triple point (mortality, SD, revascularization) 0 1.8% 1 4.0% 2 8.3% 3 19% 52 yo f with risk factors of Htn, DM, smoking with sx. C/w unstable angina. Initially pain free after 4 sl ntgs prior to arrival and full dose aspirin. Subsequently, Her chest pain recurred in the emergency department and an EKG during pain showed more pronounced T wave inversion in her anterior leads and more downsloping segments in her lateral leads. As a result, she is being started on IV nitroglycerin and heparin. She's range hemodynamically stable. I discussed the case with cardiology and we'll admit to their service. Tavon Reed MD 04/14/13 9587 Recent Results (from the past 24 hour(s)) ELECTROLYTES PANEL Component Value Range Sodium 138 135 - 145 mmol/L Potassium 4.2 3.5 - 5.0 mmol/L Chloride 99 98 - 107 mmol/L CO2 27 22 - 31 mmol/L Anion Gap 12 5 - 15 mmol/L BUN Component Value Range BUN 16 8 - 18 mg/dL CREATININE Component Value Range Creatinine 0.78 0.70 - 1.20 mg/dL Estimated GFR >60 >=60 GLUCOSE, RANDOM Component Value Range Glucose Lvl 114 60 - 199 mg/dL CARDIAC ENZYMES Component Value Range Troponin-T <0.03 <=0.03 ng/mL CK, Total 49 0 - 160 unit/L CBC (WITH DIFF) Component Value Range WBC 12.5 (*) 4.0 - 10.0 x10(3)/mcL RBC 4.58 3.93 - 5.22 x10(6)/mcL Hemoglobin 13.3 11.2 - 15.7 gm/dL Hematocrit 41.6 34.0 - 45.0 % MCV 90.8 79.0 - 94.0 fL MCH 29.0 26.6 - 32.2 pg MCHC 32.0 32.0 - 36.5 gm/dL Platelets 265 145 - 370 x10(3)/mcL RDWSD 50.8 (*) 35.0 - 46.0 fL RDWCV 15.4 (*) 10.9 - 14.4 % MPV 10.3 9.0 - 12.0 fL BLUE TUBE HOLD Component Value Range Blue Hold Sample in lab. GOLD TUBE HOLD Component Value Range Gold Hold Sample in lab. DIFFERENTIAL, AUTOMATED Component Value Range Neutrophils % 59.6 34.0 - 71.0 % Neutr Abs (ANC) 7.47 (*) 1.50 - 6.30 x10(3)/mcL Lymphocytes % 31.9 19.0 - 53.0 % Lymphocytes Abs 4.0 (*) 1.0 - 3.6 x10(3)/mcL Monocytes % 6.8 4.0 - 13.0 % Monocyte Abs 0.8 0.2 - 1.0 x10(3)/mcL Eosinophils % 1.0 0.0 - 7.0 % Eosinophils Abs 0.1 0.0 - 0.5 x10(3)/mcL Basophils % 0.5 0.0 - 2.0 % Basophils Abs 0.1 0.0 - 0.2 x10(3)/mcL Immature Gran % 0.20 0.00 - 0.66 % Fartun Gran Abs 0.03 0.00 - 0.05 x10(3)/mcL POCT URINE DIPSTICK Component Value Range POC Sp [place] 1.010 1.002 - 1.030 POC pH, UA 7 5.0 - 8.5 POC Leuk, UA neg Negative - Negative POC Nitrite, UA neg Negative - Negative POC Protein, UA neg Negative - Negative mg/dL POC Glucose, UA neg Normal - Normal mg/dL POC Ketone, UA neg Negative - Negative POC Urobil, UA neg 0.2 - 1.0 mg/dL POC Bili, UA neg Negative - Negative POC Blood, UA neg Negative - Negative awilda/uL POCT URINE Component Value Range POC Urine HCG Negative Negative - Negative POC Control Internal Controls Acceptable Tavon Reed MD 04/14/13 [id number] Tavon Reed MD 04/14/13 [id number] * Vandana Marte RN - 04/14/2013 9:32 PM EDT Pt received 4 81 mg asa in ambulance. Pt to xray and has returned. documented in this encounter Miscellaneous Notes * Discharge Summary - Jefe Sharma MD - 04/19/2013 6:51 AM EDT Inpatient Cardiology - Discharge Summary Patient Name: Jeannie Rico Patient Age: 52 y.o. Birthdate: 1960 Admit date: 04/14/2013 Discharge date : 04/17/2013 Attending Physician: Dr. 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 Chronic pain ??? Cervicalgia ??? Lumbago Operations/Major Procedures: Operations: CARDIAC CATHETERIZATION - Procedure: Coronary Angiography 04/16/13 History of Presentation: (taken from admission H&P 04/15/13) Ms. Rico is a 52 year-old obese female and active smoker w/ depression/anxiety and chronic pain presenting with chest pain. She was recently seen in the ED for chest pain on 04/09 with T-wave inversions seen in the anterior leads, negative biomarkers and an unremarkable transthoracic echocardiogram. The pain had started 5-7 days prior to her coming in (approximately 2 weeks from today), described as a substernal chest pressure radiating down her left arm precipitated by walking, relieved by rest. She was advised to stay for further work-up but declined, stating she was needed at home for care of her Schitzophrenic , and promised instead to follow-up with her PCP. Thus, she was given Aspirin and was allowed to follow-up outpatient. As promised, she went to her PCP later that week who prescribed her Nitroglycerin tablets and recommended she follow-up with a Shell Worker. This appointment was scheduled for 04/19 (5 days from today). In the interim however, her chest pain continued to persist. She would get ~2 episodes throughoutthe day that are relieved by Nitroglycerin. Today, she had 2 more episodes of chest pain at 11AM and then at 8PM prior to her arrival to the ED. These episodes although similar in quality, were much more intense and the most recent episode was only partially relieved with a Nitro tab. She was giventwo more tablets of nitroglycerin along with 325mg of Aspirin in route to [facility]. While in the ED, she had another episode of chest pain and an EKG was performed that showed deepening of her already present T-wave inversions in anterior leads. Her first enzyme is negative. She wasstarted on a Heparin & Nitroglycerin drips and her chest pain resolved. Hospital Course: #Unstable Angina: Cardiac enzymes were negative x3. TTE showed LVEF 60% without wall motion abnormalities (see below). Pt was medically managed with ASA 81mg, clopidogrel 75mg, metoprolol 12.5mg q6hr, atorvastatin 80mg, lisinopril 5mg and nitroglycerin drip to help with chest pain. She underwent cardiac catheterizati on which showed 90% stenosis of proximal 1 LAD and 60% stenosis of proximal2 LAD and received ALF x2 to these areas. LVEDP 25. Pt was given Bumex to help diuresis. Pt remained hemodynamically stable and was deemed safe for discharge 04/17 with out-patient cardiology follow-up. Important Studies and Lab Data: Labs: Lab Results Component Value Date WBC 10.8* 04/17/2013 HGB 10.2* 04/17/2013 HCT 31.5* 04/17/2013 PLATELET 226 04/17/2013 Recent Labs Basename 04/16/13 0407 INR 1.0 Lab Results Component Value Date NA 139 04/17/2013 K 3.5 04/17/2013 CL 105 04/17/2013 CO2 26 04/17/2013 BUN 9 04/17/2013 CREATININE 0.61* 04/17/2013 Recent Labs Basename 04/15/13 0454 TSH 1.73 Recent Labs Basename 04/15/13 0454 HA1C 6.1 Recent Labs Basename 04/16/13 1200 04/15/13 1028 04/15/13 0454 CK 39 47 36 TROPONINT <0.03 <0.03 <0.03 Lab Results Component Value Date CHLPL 159 04/15/2013 HDL 30* 04/15/2013 CHOLHDL 5.3 04/15/2013 TRIG 138 04/15/2013 LDLCHOL 101* 04/15/2013 Studies: 04/16/13 Cardiac cath: - 1v-disease - 90% stenosis proximal 1 segment of LAD - 60% stenosis proximal 2 segment of LAD - LVEDP: 25 - 2 ALF placed 04/16/13 TTE: 1. Technically difficult study, even with constrast. 2. The left ventricular chamber size is normal. There is mild septal hypertrophy of the left ventricle. There is normal global left ventricular systolic function. Ejection fraction is estimated to be60%. There are no left ventricular segmental wall motion abnormalities evident. 3. The right ventricle is probably normal in size and systolic function. The estimated pulmonary artery systolic pressure is 23 mmHg. 4. There is no hemodynamically significant valve disease evident 04/09/13 TTE: 1. Definity contrast (one 1.5 ml vial)was used to enhance endocardial definition. Excess contrast was discarded. 2. The left ventricle is probably normal in size.Left ventricular wall thickness is normal.There are no left ventricular segmental wall motion abnormalities.There is normal global left ventricular systolic function. Ejection fraction is estimated to be 60%. 3. The right ventricle is not well visualized.The right ventricle is normal in size.Right ventricular wall thickness is normal. Right ventricular global systolic function is normal.Pulmonary artery hypertension could not be assessed due to inadequate tricuspid regurgitation jet. 4. There is no hemodynamically significant valve disease. 04/17/13 ECG: Marked sinus bradycardia with Premature atrial complexes; ST & T wave abnormality, consider anterolateral ischemia; Abnormal ECG; When compared with ECG of 16-APR-2013 13:16, (unconfirmed) Sinus rhythm has replaced Junctional rhythm Pending Studies and Lab Data: none Discharge Conditions/Prognosis: Pt was hemodynamically stable during day of discharge Discharge to: Home with Cardiology out-patient follow-up Discharge Medications: Discharge Medication List as of 04/17/2013 3:12 PM New Meds Details aspirin 81 mg EC tablet Take 1 tablet by mouth daily., Oral, DAILY Starting 04/17/2013, Until Discontinued, Disp-30 tablet, R-6, Normal Simvastatin 40mg tablet Take 1 tablet by mouth every day, Starting 04/17/2013, Until Discontinued, Disp-30 tablet, R-6, Normal clopidogrel (PLAVIX) 75 mg tablet Take 1 tablet by mouth daily., Oral, DAILY Starting 04/17/2013, Until Discontinued, Disp-30 tablet, R-6, Normal lisinopril (PRINIVIL;ZESTRIL) 20 mg tablet Take 1 tablet by mouth daily., Oral, DAILY Starting 04/17/2013, Until Discontinued, Disp-30 tablet, R-6, Normal nitroGLYcerin (NITROSTAT) 0.[address] 1 tablet under the tongue every 5 minutes as needed for Chest pain. Do not use more than 3 doses in 15 minute time period, Sublingual, EVERY 5 MIN PRNStarting 04/17/2013, Until Discontinued, Chest pain, Disp-90 tablet, R-3, Normal Pepcid over the counter 20mg tab Take 1 tablet by mouth twice a day metoprolol succinate (TOPROL-XL) 25 mg 24 hr tablet Take 1 tablet by mouth daily., Oral, DAILY Starting 04/17/2013, Until Discontinued, Disp-30 tablet, R- 12, Normal Continued medications, unchanged Details QUEtiapine (SEROQUEL) 25 mg tablet Take 25 mg by mouth in the morning, Until Discontinued, Historical Med QUEtiapine (SEROQUEL) 50 mg Tablet SR Take 50 mg by mouth daily in evening., Oral, DAILY, Until Discontinued, Historical Med traMADol (ULTRAM) 50 mg tablet Take 50 mg by mouth every 6 hours as needed., Oral, EVERY 6 HOURS PRN, Until Discontinued, Historical Med methocarbamol (ROBAXIN) 500 mg tablet Take 500 mg by mouth 4 times daily., Oral, 4 TIMES DAILY, Until Discontinued, Historical Med traZODone (DESYREL) 50 mg tablet Take 50 mg by mouth nightly., Oral, NIGHTLY, Until Discontinued, Historical Med Calcium 500 mg Tab Take by mouth daily., Oral, DAILY Starting 01/18/2011, Until Discontinued, Historical Med hydroCODone-acetaminophen (VICODIN) 5-500 mg per tablet Take 1 tablet by mouth as needed. For flareup pain only , Oral, PRN Starting 01/18/2011, Until Discontinued, Historical Med tetracycline (ACHROMYCIN;SUMYCIN) 250 mg capsule Take 250 mg by mouth nightly., Oral, NIGHTLY Starting 01/18/2011, Until Discontinued, Historical Med albuterol (PROVENTIL) 5 mg/mL nebulizer solution Take 2.5 mg by nebulization every 6 hours as needed., Nebulization, EVERY 6 HOURS PRN, Until Discontinued, Historical Med fluticasone-salmeterol (ADVAIR DISKUS) 500-50 mcg/dose diskus inhaler 1 Disk(s), Inh, Twice daily, Inhalation levothyroxine (SYNTHROID) 50 mcg tablet 50MCG, PO, Once daily, Oral prazosin (MINIPRESS) 1 mg capsule 3M Capsule(s), PO, QHS, Oral lamoTRIgine (LAMICTAL) 150 mg tablet 25M Tablet(s), PO, Once daily, Oral b complex vitamins (B COMPLEX-VITAMIN B12) tablet Oral ghdabdaidlpb-audb-mkswuesf (COMPLETE MULTIVITAMIN) Tab tablet 1 Tablet(s), PO, Once daily, Oral calcium citrate-vitamin D (CITRACAL+D) 315-200 mg-unit per tablet 2 Tablet(s), PO, Twice daily, Oral ergocalciferol (VITAMIN D) 50,000 unit capsule [id number], PO, TWICE a week, Oral varenicline (CHANTIX) 0.5 mg tablet Take 0.5 mg by mouth 2 times daily., Oral, 2 TIMES DAILY, UntilDiscontinued, Historical Med Medications STOPPED esomeprazole (NEXIUM) 20 mg capsule Updated Allergies/ADRs: Allergies Allergen Reactions ??? Sumatriptan Hives ??? Oxycodone Other (See Comments) drunk feeling, dizzy ??? Oxycodone-Acetaminophen Other (See Comments) dizziness, feels drunk Instructions Given to Patient at Discharge: Provider Instructions Instruction after leaving the hospital Why you were hospitalized: Chest pain and unstable angina Call your doctor or report to the nearest Emergency Department: if you have chest pain or pressure or symptoms similar or worse to that which initially brought you in to the hospital. If you begin sweating for no reason, have nausea/vomiting, headaches, blurred vision, lightheadedness/ fainting spells, or bleeding from the access site please call your doctor and/or call EMS. Activity: If you are very physically active, then take it easy for the next month, until you are seen in cardiology follow up or given permission by your primary care doctor. It will take time for your heart to recover, so while cardiovascular activity is highly encouraged, over working the heart too soon can be dangerous. Also do not do any heavy lifting for the next 7-10 days, as we accessed your heart via the high pressure femoral artery. We do not want you to begin bleeding. If you do so, apply much pressure and report to the nearest emergency department. Driving: Please refrain from driving for 48 hours after your procedure, as the access site is an area of high pressure and abrupt automobile accident can result in excessive bleeding. Also, it would be difficult to place pressure at the catheterization site if it began to bleed as you were driving. Diet: heart healthy diet including low carbohydrates/refined sugars, and much vegetables, fruits, lean protein and whole grains. Bathing: Showers are ok. Do not submerge your wound into a bath or hot tub for about 7-10 days in order to prevent infection. Sexual activity: You should refrain from sexual activity for 1 month following a heart attack. Wound care: since your femoral artery is in an area of high pressure, if it begins to bleed at all,please place a lot of pressure on this and report to the nearest emergency department. The importance of your medications: 1. Metoprolol, a beta ange, lowers your heart rate and blood pressure and is known to decrease mortality rates in the acute post-heart attack setting. 2. Lisinopril, an CHANDRAKNAT inhibitor, lowers your blood pressure, is anti- inflammatory, and prevents remodeling and dilation of the brito of your heart. 3. Atorvastatin, a statin, is a lipid-lowering drug. It is also anti- inflammatory and studies show intensive lipid lowering therapy decreases the rate of myocardial events after a heart attack. 4. Aspirin, an anti-platelet drug, is protective against future thrombus formation, especially in the stent. 5. Plavix or clopidogrel, is also an anti-platelet drug, is protective against future thrombus formation, especially in the stent. Return to Work: You were hospitalized for a heart attack. It is very important that you abide by the instructions above with regards to activity, and this applies to work. 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 Follow-Up Appointments Date and Time Provider and Specialty Location TueApr 25, 2PM Dr. Stephanie Osman [address] [facility] [address] May 10, 8:10AM Ambrosio Maloney, Cardiology [facility] Your Primary Care Provider: [place] [address] For questions regarding this document or issues relating to this hospitalization on the Medical Service, please contact your inpatient physician through the [facility] Culinary Chef . Issues afterhours and on weekends will be handled by the Hospitalist staff on-call. General Instructions None Future Appointments and Orders Future Appointments: Provider: Department: Dept Phone: Center: 05/03/2013 1:30 PM [facility] Cardiac Rehab Prog Non-Invasive Cardiology Lab [phone] None 05/10/2013 8:10 AM Freddy Meijas MD Cardiology [phone] [facility] Joint Appt Nurse One Cardiology Intake, FABIANA LYONS 4A [phone] [facility] Future Orders Please Complete By Expires Referral to Cardiac Rehab [[email or web address] Custom] Process Instructions: If no progress note charted, please enter Clinical details in comments. Scheduling Instructions: Comments: Cardiac rehab at [facility] Questions: Responses: Reason for referral Angina, PCI Provider Contact Information: [place] [address] Discharge References/Attachments: Discharge References/Attachments PERCUTANEOUS CORONARY INTERVENTION: WHAT TO EXPECT AT HOME (BOLIVIAN) Signed: Jefe Sharma, PGY-3 DATE: 04/19/13 * Consult Note - Osmin, Kenna, RN - 04/17/2013 11:00 AM EDT Cardiac Rehabilitation Inpatient Evaluation Primary Cardiac Diagnosis: USA, PCI Cardiac Risk Factors: Smoking: yes, 2 ppd Overweight: yes Hyperlipidemia: yes Sedentary: yes HTN: yes Family history: yes DM: yes Stress: yes Patient Education: Reviewed cardiac cath findings, implications of coronary artery disease, managing angina and risk factor modification. Jeannie has multiple risk factors for heart disease. Despite this, she seems very motivated to change. She was a 2 ppd smoker prior to this event. She is adamant about quitting tobacco. She is wearing a patch. She accepted the smoking cessation packet. We discussed ways to cope with stress & triggers. Of note, she has a long standing history of mental illness and addiction. 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 She seemed interested in now talking about heart disease. Given parameters for home exercise. Phase II Referral: [facility], intake 05/03 at 1:30 Activity Summary: By discharge, patient will be able to perform self care, walk 5-7 minutes and go up and down stairs without signs or symptoms of ischemia. Date /Initials Baseline Response Symptoms/Comments Activity HR 66 74 Walked with cane (her baseline) due to Walk/stairs BP 105/54 112/60 Arthritis. Also a little sore from hematoma. O2 Sat 95% 98% Slow pace but valentina well ECG SR SR * Miscellaneous - Provider, Scanning - 04/16/2013 4:37 AM EDT * Miscellaneous - Provider, Scanning - 04/16/2013 4:09 AM EDT * Miscellaneous - Provider, Scanning - 04/16/2013 4:02 AM EDT * ED Triage - Vandana Marte RN - 04/14/2013 9:21 PM EDT Pt reports that she has had midsternal chest pain radiating to her left arm x 4 days. Denies nausea/ SOB/vomiting or diaphoresis during these episodes. Has taken NTG which has relieved her pain. She took 2 sets of 2 SL NTG today for episodes of chest pain with left arm radiation. She presents to the ED tonight via ambulance because she began to exp chest pain with bilateral arm radiation. At present she states she is pain free. Denies nausea/SOB or diaphoresis. IV inserted by EMS and labs drawn. She states that her first episode of chest pain began when she walked down her driveway, but that today the pain occurred when she was just sitting. She states that she has several herniated discs: 2 cervical and 2 lower back. She has osteoarthritis as well as spinal stenosis for which she takes vicodin, tramadol and robaxin. She is moving all ext and denies any difficulty with bowel or bladder.She is alert and oriented. Breath sounds are distant, but clear. On cardiac specialist she is in NSR no ectopy. Friend at the bedside. Pt states taht she is a 2PPD smoker. documented in this encounter Plan of Treatment Pending Results Name Type Priority Associated Diagnoses Date /Time EKG 12 Lead ECG Routine 04/16/2013 1: 16 PM EDT Scheduled Referrals Name Type Priority Associated Diagnoses Orde r Schedule Referral to Cardiac Rehab Outpatient Referral Routine Unstable angina Ordered: 04/17/2013 documented as of this encounter Procedures Procedure Name Priority Date/Time Associated Diagnosis Comments FORMS EXAMINER SCAN 04/18/2013 1:04 PM EDT CARDIAC CATHETERIZATION Routine 04/18/20 13 10:15 AM EDT POCT GLUCOSE Routine 04/17/2013 11:50 AM EDT HEMOGLOBIN Routine 04/17/2013 11:13 AM EDT POCT GLUCOSE Routine 04/17/2013 7:37 AM EDT EKG 12-LEAD STAT 04/17/2013 7:21 AM EDT Unstable angina DIFFERENTIAL, AUTOMATED Routine 04/17/20 13 3:51 AM EDT CBC (WITH DIFF) Routine 04/17/2013 3:51 AM EDT BASIC METABOLIC PANEL (NON-FASTING) Routine 04/17/2013 3:51 AM EDT POCT GLUCOSE Routine 04/16/2013 8:26 PM EDT POCT GLUCOSE Routine 04/16/2013 4:35 PM EDT EKG 12-LEAD Routine 04/16/2013 1:16 PM EDT EKG 12-LEAD Routine 04/16/2013 1:16 PM EDT CARDIAC ENZYMES ([facility]) STAT 04/16/2013 12:00 PM EDT ECHOCARDIOGRAM TRANSTHORACIC Routine 04/16/2013 10:11 AM EDT Unstable angina POCT GLUCOSE Routine 04/16/2013 7:42 AM EDT DIFFERENTIAL, AUTOMATED Routine 04/16/20 13 4:07 AM EDT APTT Routine 04/16/2013 4:07 AM EDT PROTHROMBIN TIME Routine 04/16/2013 4:07 AM EDT CBC (WITH DIFF) Routine 04/16/2013 4:07 AM EDT BASIC METABOLIC PANEL (NON-FASTING) Routine 04/16/2013 4:07 AM EDT APTT STAT 04/15/2013 10:00 PM EDT POCT GLUCOSE Routine 04/15/2013 8:50 PM EDT APTT STAT 04/15/2013 5:00 PM EDT POCT GLUCOSE Routine 04/15/2013 3:54 PM EDT EKG 12-LEAD Routine 04/15/2013 12:49 PM EDT POCT GLUCOSE Routine 04/15/2013 11:27 AM EDT CARDIAC ENZYMES ([facility]) Routine 04/15/2013 10:28 AM EDT APTT STAT 04/15/2013 10:28 AM EDT XR CHEST PA AND LATERAL Routine 04/15/20 13 8:31 AM EDT POCT GLUCOSE Routine 04/15/2013 7:59 AM EDT EKG 12-LEAD Routine 04/15/2013 7:17 AM EDT Unstable angina XR CHEST PA AND LATERAL STAT 04/15/20 13 5:07 AM EDT CARDIAC ENZYMES ([facility]) Routine 04/15/2013 4:54 AM EDT TSH Routine 04/15/2013 4:54 AM EDT PHOSPHORUS Routine 04/15/2013 4:54 AM EDT MAGNESIUM Routine 04/15/2013 4:54 AM EDT HEMOGLOBIN A1C Routine 04/15/2013 4:54 AM EDT CALCIUM Routine 04/15/2013 4:54 AM EDT HEPATIC FUNCTION PANEL Routine 3 4:54 AM EDT LIPID PANEL (REFLEX DIRECT LDL) Routine 04/15/2013 4:54 AM EDT APTT Routine 04/15/2013 4:53 AM EDT PROTHROMBIN TIME Routine 04/15/2013 4:53 AM EDT PROTHROMBIN TIME Routine 04/15/2013 12:4 5 AM EDT APTT STAT 04/14/2013 11:55 PM EDT EKG 12-LEAD STAT 04/14/2013 10:59 PM EDT Unstable angina EKG 12-LEAD STAT 04/14/2013 10:57 PM EDT Unstable angina EKG 12-LEAD STAT 04/14/2013 10:56 PM EDT POCT URINE STAT 04/14/2013 10:41 PM EDT POCT URINE DIPSTICK STAT 04/14/2013 1 0:41 PM EDT DIFFERENTIAL, AUTOMATED STAT 04/14/20 13 9:10 PM EDT GOLD TUBE HOLD STAT 04/14/2013 9:10 PM EDT BLUE TUBE HOLD STAT 04/14/2013 9:10 PM EDT CARDIAC ENZYMES ([facility]) STAT 04/14/2013 9:10 PM EDT CREATININE STAT 04/14/2013 9:10 PM EDT CBC (WITH DIFF) STAT 04/14/2013 9:10 PM EDT BUN STAT 04/14/2013 9:10 PM EDT GLUCOSE, RANDOM STAT 04/14/2013 9:10 PM EDT ELECTROLYTES PANEL STAT 04/14/2013 9: 10 PM EDT EKG 12-LEAD STAT 04/14/2013 8:57 PM EDT documented in this encounter Results * SCAN DOC: FORMS EXAMINER (04/18/2013 1:04 PM EDT) Anatomical Region Laterality Modality Other Narrative 04/18/2013 1:13 PM EDT Procedure Note Provider, Scanning - 04/18/2013 1:04 PM EDT Scanning Provider MEDIA MGR SCAN EXT O RDR/RSLT * Cardiac Catheterization (04/18/2013 10:15 AM EDT) Anatomical Region Laterality Modality Other Narrative 04/18/2013 10:15 AM EDT Procedure Note Provider, Scanning - 04/16/2013 11:59 AM EDT Transcriptions Provider, Scanning - 04/16/2013 4:59 PM EDT Freddy Mejias MD CARDIAC CATH ORDERAB LES * POCT Glucose (04/17/2013 11:50 AM EDT) POC Glucose 138 60 - 199 mg/dL [facility] Comment: Supplemental ranges: <110 mg/dL before meals <200 mg/dL all other times of the day Blood specimen (specimen) 04/17/2013 11:50 AM EDT 04/17/2013 11:50 AM EDT Freddy Mejias MD POINT OF CARE TEST O RDERABLES [facility] * (ABNORMAL) Hemoglobin (04/17/2013 11:13 AM EDT) Hemoglobin 10.2(L) 11.2 - 15.7 gm/dL [facility] Blood specimen (specimen) 04/17/2013 11:13 AM EDT 04/17/2013 11:27 AM EDT Narrative Resulting Agency Comment Spec In Lab Freddy Mejias MD HEMATOLOGY ORDERABLE S Performing Organization Address [facility] Co de Phone Number [facility] * POCT Glucose (04/17/2013 7:37 AM EDT) [facility] POC Glucose 95 60 - 199 mg/dL [facility] Comment: Supplemental ranges: <110 mg/dL before meals <200 mg/dL all other times of the day Blood specimen (specimen) 04/17/2013 7:37 AM EDT 04/17/2013 7:37 AM EDT Freddy Mejias MD POINT OF CARE TEST O RDERABLES Performing Organization Address [facility] de Phone Number [facility] * EKG 12 Lead (04/17/2013 7:21 AM EDT) [facility] Ventricular rate 49 BPM MUSE SYSTEM Atrial Rate 49 BPM MUSE SYSTEM P-R Interval 150 ms MUSE SYSTEM QRS Duration 88 ms MUSE SYSTEM Q-T Interval 460 ms MUSE SYSTEM QTC Calculated (Bezet) 415 ms MUSE SYSTEM Calculated P [employer] 41 degrees MUSE SYSTEM Calculated R [place] 63 degrees MUSE SYSTEM Calculated T [employer] 139 degrees MUSE SYSTEM INTERPRETATION Marked sinus bradycardia with Premature atrial complexes ST & T wave abnormality, consider anterolateral ischemia Abnormal ECG When compared with ECG of 16-APR-2013 13:16, (unconfirmed) Sinus rhythm has replaced Junctional rhythm Confirmed by MD WILBER, SERGO ([id number]) on 04/17/2013 10:42:01 PM MUSE SYSTEM 04/17/2013 7:21 AM EDT 04/17/2013 10:42 PM EDT Tavon Reed MD ECG ORDERABLES Performing Organization Address [facility] Co de Phone Number MUSE SYSTEM * (ABNORMAL) Differential, Automated (04/17/2013 3:51 AM EDT) [facility] Neutrophils % 75.0(H) 34.0 - 71.0 % [facility] Neutr Abs (ANC) 8.09(H) 1.50 - 6.30 x10(3)/mc L [facility] Lymphocytes % 16.0(L) 19.0 - 53.0 % [facility] Lymphocytes Abs 1.7 1.0 - 3.6 x10(3)/mc L [facility] Monocytes % 7.5 4.0 - 13.0 % [facility] Monocyte Abs 0.8 0.2 - 1.0 x10(3)/mc L [facility] Eosinophils % 0.9 0.0 - 7.0 % [facility] Eosinophils Abs 0.1 0.0 - 0.5 x10(3)/mc L [facility] Basophils % 0.3 0.0 - 2.0 % [facility] Basophils Abs 0.0 0.0 - 0.2 x10(3)/mc L [facility] Immature Gran % 0.30 0.00 - 0.66 % [facility] Comment: Immature granulocytes(IG's)percentage and absolute count will include metamyelocytes, myelocytes, and promyelocytes. Blood smears from CBCs yielding IG's will be scanned manually for concordance. If this scan disagrees with the automated IG or if promyelocytes are noted, a manual differential will be performed. Fartun Gran Abs 0.03 0.00 - 0.05 x10(3)/mc L [facility] Blood specimen (specimen) 04/17/2013 3:51 AM EDT 04/17/2013 5:10 AM EDT Tavon Reed MD HEMATOLOGY ORDERABLE S [facility] * (ABNORMAL) Basic Metabolic Panel (non-fasting) (04/17/2013 3:51 AM EDT) Glucose Lvl 102 60 - 199 mg/dL [facility] Comment:Diabetes: >=200 mg/d L plus symptoms BUN 9 8 - 18 mg/dL [facility] Creatinine 0.61(L) 0.70 - 1.20 mg/dL [facility] Comment: Please note that the pediatric reference intervals supplied above were not validated at [facility]. Results from pediatric patients should be interpreted in conjunction to the patient's age, height and muscle mass. Sodium 139 135 - 145 mmol/L [facility] Potassium 3.5 3.5 - 5.0 mmol/L [facility] Comment: Please note: ??Patients with WBC >100,000 may have falsely elevated Potassium levels. ??For accurate Potassium quantification in these patients send serum separator tube (gold top) for subsequent determinations. ??Contact the Clinical Chemistry Laboratory if there are any questions. Chloride 105 98 - 107 mmol/L [facility] CO2 26 22 - 31 mmol/L CERNER MILLENNIUM Anion Gap 8 5 - 15 mmol/L CERNER MILLENNIUM Calcium 9.0 8.5 - 10.5 mg/dL CERNER MILLENNIUM Estimated GFR >60 >=60 CERNER MILLENNIUM Comment: This estimated GFR (eGFR) value was calculated using the MDRD equation which has been validated on patients between the ages of 18 and 70. The MDRD should not be used to assess kidney function in patients < 18 years of age or in patients with extremes of body mass, or in patients with acute kidney failure. This value should be multiplied by 1.2 for patients. For further information please copy and paste the following links into your internet browser. http://www.nkdep.nih.gov/lab-evaluation.shtml http://www.kidney.org/professionals/ Blood specimen (specimen) 04/17/2013 3:51 AM EDT 04/17/2013 5:10 AM EDT Narrative Resulting Agency Comment Spec In Lab Tavon Reed MD CHEMISTRY ORDERABLES [facility] * (ABNORMAL) CBC (with Diff) (04/17/2013 3:51 AM EDT) WBC 10.8(H) 4.0 - 10.0 x10(3)/mcL CERNER MILLENNIUM RBC 3.46(L) 3.93 - 5.22 x10(6)/mcL CERNER MILLENNIUM Hemoglobin 9.8(L) 11.2 - 15.7 gm/dL [facility] MILLENNIUM Hematocrit 31.5(L) 34.0 - 45.0 % CERNER MILLENNIUM MCV 91.0 79.0 - 94.0 fL CERNER MILLENNIUM MCH 28.3 26.6 - 32.2 pg CERNER MILLENNIUM MCHC 31.1(L) 32.0 - 36.5 gm/dL CERNER MILLENNIUM Platelets 226 145 - 370 x10(3)/mcL CERNER MILLENNIUM RDWSD 52.0(H) 35.0 - 46.0 fL CERNER MILLENNIUM RDWCV 15.6(H) 10.9 - 14.4 % CERNER MILLENNIUM MPV 10.6 9.0 - 12.0 fL [facility] Blood specimen (specimen) 04/17/2013 3:51 AM EDT 04/17/2013 5:10 AM EDT Narrative Resulting Agency Comment Spec In Lab Tavon Reed MD HEMATOLOGY ORDERABLE S Performing Organization Address [facility] Co de Phone Number [facility] * POCT Glucose (04/16/2013 8:26 PM EDT) POC Glucose 130 60 - 199 mg/dL [facility] Comment: Supplemental ranges: <110 mg/dL before meals <200 mg/dL all other times of the day Blood specimen (specimen) 04/16/2013 8:26 PM EDT 04/16/2013 8:26 PM EDT Freddy Mejias MD POINT OF CARE TEST O RDERABLES Performing Organization Address [facility] Co de Phone Number [facility] * POCT Glucose (04/16/2013 4:35 PM EDT) POC Glucose 101 60 - 199 mg/dL [facility] Comment: Supplemental ranges: <110 mg/dL before meals <200 mg/dL all other times of the day Blood specimen (specimen) 04/16/2013 4:35 PM EDT 04/16/2013 4:35 PM EDT Freddy Mejias MD POINT OF CARE TEST O RDERABLES Performing Organization Address [facility] de Phone Number [facility] * EKG 12 Lead (04/16/2013 1:16 PM EDT) [facility] Ventricular rate 55 BPM MUSE SYSTEM Atrial Rate 55 BPM MUSE SYSTEM QRS Duration 76 ms MUSE SYSTEM Q-T Interval 458 ms MUSE SYSTEM QTC Calculated (Bezet) 438 ms MUSE SYSTEM Calculated P Du Pont 91 degrees MUSE SYSTEM Calculated R [place] 61 degrees MUSE SYSTEM Calculated T [place] 96 degrees MUSE SYSTEM INTERPRETATION Sinus bradycardia ST & T wave abnormality, consider anterolateral ischemia Abnormal ECG When compared with ECG of 15-APR-2013 12:49, T wave inversion less evident in Lateral leads Confirmed by MD WILBER, SERGO ([id number]) on 04/17/2013 9:58:29 PM MUSE SYSTEM 04/16/2013 1:16 PM EDT 04/17/2013 9:58 PM EDT Sergo Goins MD ECG ORDERABLES Performing Organization Address [facility] de Phone Number MUSE SYSTEM * Cardiac Enzymes (04/16/2013 12:00 PM EDT) [facility] Troponin-T <0.03 <=0.03 ng/mL [facility] Comment: 0.03 ng/mL: Represents the 99th percentile upper reference limit for normals. >0.03 ng/mL: Elevated cardiac troponin T level indicative of myocardial damage. Diagnosis of acute, evolving or recent SD requires a typical rise and gradual fall of cTnT with at least ONE of the following: a) Ischemic symptoms b) Development of pathologic Q waves on the ECG c) ECG changes indicative of eschemia (S-T segment elevation/depression) d) Coronary artery intervention Serial bloods should be obtained for testing on admission, at 6 to 9 hrs and again at 12 to 24 hrs if earlier samples are negative and the clinical index of suspicion is high. Reference: [Myocardial infarction redefined a consensus document of the Joint Society of Cardiology/[place] [employer] Committee for the redefinition of myocardial infarction. Journal of the [place] [employer] 2000; 36: 959-969] CK, Total 39 0 - 160 unit/L [facility] Blood specimen (specimen) 04/16/2013 12:00 PM EDT 04/16/2013 12:05 PM EDT Narrative Resulting Agency Comment Spec In Lab Freddy Mejias MD CHEMISTRY ORDERABLES [facility] * Echocardiogram Transthoracic(Leb) (04/16/2013 10:11 AM EDT) EF 60 [facility] SYSTEM Anatomical Region Laterality Modality Other 04/16/2013 Narrative 04/16/2013 10:37 AM EDT Procedure: ? Transthoracic Echocardiogram Patient: ? APOLINAR Lawson ?(Age): 1960(52) Med Rec#: ?[id number] ? Sex: ?F ? Site Loc: ?[facility] ? Ht / Wt: ??163(cm)/115(kg) Pt. Loc: ? Adult Floor ?BSA: ?2.28 Study Date: ?04/16/2013 ? Pt. Type: Inpatient Tape: ? Referring: Tavon Reed Certified Medical Assistant: Dereck Diaz Diagnosis:CPT Code(s): ??Echo Full (15202), ??Spectral Doppler (53331), Color Doppler (81595), ??Optison ([id number]), ??Spectral Doppler (79311), Color Doppler (82065), ??Definity ([id number]), ??Echo Full (64441), Indication(s): ??Angina Rhythm: HR ?BP ?134/69 ?? SUMMARY: 1. Technically difficult study, even with constrast. 2. The left ventricular chamber size is normal. ??There is mild septal hypertrophy of the left ventricle. ??There is normal global left ventricular systolic function. ??Ejection fraction is estimated to be 60%. ??There are no left ventricular segmental wall motion abnormalities evident. 3. The right ventricle is probably normal in size and systolic function. The estimated pulmonary artery systolic pressure is 23 mmHg. 4. There is no hemodynamically significant valve disease evident. 5. See remainder of report for additional findings. FINDINGS: Study Quality ?Technically limited Left Ventricle ?The left ventricle is not well visualized. ?The left ventricular chamber size is normal. ?There is mild septal hypertrophy of the left ventricle. ?There is no evidence of LVOT obstruction. ?There is normal global left ventricular systolic function. ??Ejection fraction is estimated to be 60%. ?There are no left ventricular segmental wall motion abnormalities. ?Left sided filling pressure could not be assessed by Doppler. Left Atrium ?The left atrium is mildly dilated. Right Ventricle ?The right ventricle is not well visualized. ?The right ventricle is probably normal in size. ?Right ventricular wall thickness is normal. ?Right ventricular global systolic function is probably normal. ?The estimated pulmonary artery systolic pressure is 23 mmHg. ?The estimated right atrial pressure is 8 mmHg. Right Atrium ?The right atrium is mildly dilated. Aortic Valve ?The aortic valve is trileaflet. The leaflets are thin with normal excursion. There is no aortic stenosis or regurgitation present. Mitral Valve ?The mitral valve appears normal in structure and function. ?There is no evidence of mitral regurgitation. Tricuspid Valve ?The tricuspid valve is probably normal. ?There is trace tricuspid regurgitation present. Pulmonic Valve ?The pulmonic valve is probably normal. ?There is trace pulmonic regurgitation present. Pericardium ?The pericardium appears normal and there is no evidence of a pericardial effusion. Aorta ?The aortic root is normal in size. ?The ascending aorta is normal in size. Pulmonary Artery ?The main pulmonary artery appears normal. Venous ?The inferior vena cava appears dilated. ?There is a greater than 50% respiratory change in the inferior vena cava dimension. Misc ?There is no hemodynamically significant valve disease. ?Technically difficult study. ?See remainder of report for additional findings. ?Two-dimensional echo, spectral Doppler and color Doppler performed. ?Optison contrast (one 3 ml vial) was used to enhance endocardial definition. Excess contrast was discarded. Wall Motion: Segment Name ?Rest ? Base-Anteroseptal ?? Normal ? Base-Anterior ? Normal ? Base-Anterolateral ??Normal ? Base-Posterolateral Normal ? Base-Inferior ? Normal ? Base-Inferoseptal ?? Normal ? Mid-Anteroseptal ?Normal ? Mid-Anterior ?Normal ? Mid-Anterolateral ?? Normal ? Mid-Posterolateral ??Normal ? Mid-Inferior ?Normal ? Mid-Inferoseptal ?Normal ? [place]-Septal ? Normal ? [place]-Anterior ? Normal ? [place]-Lateral ?Normal ? [place]-Inferior ? Normal ? [place]-Tip ?Normal ? Chambers ?Value ?Units (Range) ? IVSd 2D ? 1.3 ?cm ? LVIDd 2D ?4.5 ?cm ? PWd 2D ?1.1 ?cm ? LVIDs 2D ?3.4 ?cm ? LVFS 2D ? 24 ? % ? LA area ? 27 ? cm2 (<21) ? RA area ? 19 ? cm2 (<18) ? Ao root ? 2.9 ?cm (2.1 to 3.6) ? Asc Ao ?3.1 ?cm (2 to 3.5) ? Mitral Valve ?Value ?Units (Range) ? E peak ?0.98 ? m/sec ? E/A ratio ? 1.3 ?ratio ? MVDT ?222 ?msec ? E1 ?0.09 ? m/sec ? E/E1 ?11 ? ratio ? Tricuspid/Pulmonic Valves ?Value ?Units (Range) ? TR peak samia ? 1.9 ?m/sec ? RAP ? 8 ?mmHg ? RVSP/PASP ? 23 ? mmHg ? This report has been electronically signed by: Chalino Gomez. ? 04/16/2013 10:36:51 Images reviewed and interpretation verified [facility] Cardiac Ultrasound Laboratory Procedure Note Chalino Gomez MD - 04/16/2013 Procedure: Transthoracic Echocardiogram Patient: APOLINAR Lawson (Age): 1960(52) Med Rec#: [id number] Sex: F Site Loc: [facility] Ht / Wt: 163(cm)/115(kg) Pt. Loc: Adult Floor BSA: 2.28 Study Date: 04/16/2013 Pt. Type: Inpatient Tape: Referring: Tavon Reed Certified Medical Assistant: Dereck Diaz Diagnosis:CPT Code(s): Echo Full (02384), Spectral Doppler (07069), Color Doppler (74113), Optison ([id number]), Spectral Doppler (22885), Color Doppler (52161), Definity ([id number]), Echo Full (70280), Indication(s): Angina Rhythm: HR BP 134/69 SUMMARY: 1. Technically difficult study, even with constrast. 2. The left ventricular chamber size is normal. There is mild septal hypertrophy of the left ventricle. There is normal global left ventricular systolic function. Ejection fraction is estimated to be 60%. There are no left ventricular segmental wall motion abnormalities evident. 3. The right ventricle is probably normal in size and systolic function. The estimated pulmonary artery systolic pressure is 23 mmHg. 4. There is no hemodynamically significant valve disease evident. 5. See remainder of report for additional findings. FINDINGS: Study Quality Technically limited Left Ventricle The left ventricle is not well visualized. The left ventricular chamber size is normal. There is mild septal hypertrophy of the left ventricle. There is no evidence of LVOT obstruction. There is normal global left ventricular systolic function. Ejection fraction is estimated to be 60%. There are no left ventricular segmental wall motion abnormalities. Left sided filling pressure could not be assessed by Doppler. Left Atrium The left atrium is mildly dilated. Right Ventricle The right ventricle is not well visualized. The right ventricle is probably normal in size. Right ventricular wall thickness is normal. Right ventricular global systolic function is probably normal. The estimated pulmonary artery systolic pressure is 23 mmHg. The estimated right atrial pressure is 8 mmHg. Right Atrium The right atrium is mildly dilated. Aortic Valve The aortic valve is trileaflet. The leaflets are thin with normal excursion. There is no aortic stenosis or regurgitation present. Mitral Valve The mitral valve appears normal in structure and function. There is no evidence of mitral regurgitation. Tricuspid Valve The tricuspid valve is probably normal. There is trace tricuspid regurgitation present. Pulmonic Valve The pulmonic valve is probably normal. There is trace pulmonic regurgitation present. Pericardium The pericardium appears normal and there is no evidence of a pericardial effusion. Aorta The aortic root is normal in size. The ascending aorta is normal in size. Pulmonary Artery The main pulmonary artery appears normal. Venous The inferior vena cava appears dilated. There is a greater than 50% respiratory change in the inferior vena cava dimension. Misc There is no hemodynamically significant valve disease. Technically difficult study. See remainder of report for additional findings. Two-dimensional echo, spectral Doppler and color Doppler performed. Optison contrast (one 3 ml vial) was used to enhance endocardial definition. Excess contrast was discarded. Wall Motion: Segment Name Rest Base-Anteroseptal Normal Base-Anterior Normal Base-Anterolateral Normal Base-Posterolateral Normal Base-Inferior Normal Base-Inferoseptal Normal Mid-Anteroseptal Normal Mid-Anterior Normal Mid-Anterolateral Normal Mid-Posterolateral Normal Mid-Inferior Normal Mid-Inferoseptal Normal [place]-Septal Normal [place]-Anterior Normal [place]-Lateral Normal [place]-Inferior Normal [place]-Tip Normal Chambers Value Units (Range) IVSd 2D 1.3 cm LVIDd 2D 4.5 cm PWd 2D 1.1 cm LVIDs 2D 3.4 cm LVFS 2D 24 % LA area 27 cm2 (<21) RA area 19 cm2 (<18) Ao root 2.9 cm (2.1 to 3.6) Asc Ao 3.1 cm (2 to 3.5) Mitral Valve Value Units (Range) E peak 0.98 m/sec E/A ratio 1.3 ratio MVDT 222 msec E1 0.09 m/sec E/E1 11 ratio Tricuspid/Pulmonic Valves Value Units (Range) TR peak samia 1.9 m/sec RAP 8 mmHg RVSP/PASP 23 mmHg This report has been electronically signed by: Chalino Gomez 04/16/2013 10:36:51 Images reviewed and interpretation verified [facility] Cardiac Ultrasound Laboratory Tavon Reed MD ECHO ORDERABLES * POCT Glucose (04/16/2013 7:42 AM EDT) Pathologist [facility] POC Glucose 103 60 - 199 mg/dL CERNER MILLENNIUM Comment: Supplemental ranges: <110 mg/dL before meals <200 mg/dL all other times of the day Blood specimen (specimen) 04/16/2013 7:42 AM EDT 04/16/2013 7:42 AM EDT Freddy Mejias MD POINT OF CARE TEST O RDERABLES [facility] * (ABNORMAL) Differential, Automated (04/16/2013 4:07 AM EDT) Neutrophils % 51.8 34.0 - 71.0 % CERNER MILLENNIUM Neutr Abs (ANC) 4.65 1.50 - 6.30 x10(3)/mc L CERNER MILLENNIUM Lymphocytes % 41.0 19.0 - 53.0 % CERNER MILLENNIUM Lymphocytes Abs 3.7(H) 1.0 - 3.6 x10(3)/mc L CERNER MILLENNIUM Monocytes % 5.6 4.0 - 13.0 % CERNER MILLENNIUM Monocyte Abs 0.5 0.2 - 1.0 x10(3)/mc L CERNER MILLENNIUM Eosinophils % 1.1 0.0 - 7.0 % CERNER MILLENNIUM Eosinophils Abs 0.1 0.0 - 0.5 x10(3)/mc L CERNER MILLENNIUM Basophils % 0.4 0.0 - 2.0 % CERNER MILLENNIUM Basophils Abs 0.0 0.0 - 0.2 x10(3)/mc L CERNER MILLENNIUM Immature Gran % 0.10 0.00 - 0.66 % CERNER MILLENNIUM Comment: Immature granulocytes(IG's)percentage and absolute count will include metamyelocytes, myelocytes, and promyelocytes. Blood smears from CBCs yielding IG's will be scanned manually for concordance. If this scan disagrees with the automated IG or if promyelocytes are noted, a manual differential will be performed. Fartun Gran Abs 0.01 0.00 - 0.05 x10(3)/mc L CERNER MILLENNIUM Blood specimen (specimen) 04/16/2013 4:07 AM EDT 04/16/2013 4:17 AM EDT Tavon Reed MD HEMATOLOGY ORDERABLE S [facility] * (ABNORMAL) Basic Metabolic Panel (non-fasting) (04/16/2013 4:07 AM EDT) Glucose Lvl 97 60 - 199 mg/dL CERNER MILLENNIUM Comment:Diabetes: >=200 mg/d L plus symptoms BUN 12 8 - 18 mg/dL CERNER MILLENNIUM Creatinine 0.64(L) 0.70 - 1.20 mg/dL CERNER MILLENNIUM Comment: Please note that the pediatric reference intervals supplied above were not validated at [facility]. Results from pediatric patients should be interpreted in conjunction to the patient's age, height and muscle mass. Sodium 141 135 - 145 mmol/L CERNER MILLENNIUM Potassium 4.1 3.5 - 5.0 mmol/L CERNER MILLENNIUM Comment: Please note: ??Patients with WBC >100,000 may have falsely elevated Potassium levels. ??For accurate Potassium quantification in these patients send serum separator tube (gold top) for subsequent determinations. ??Contact the Clinical Chemistry Laboratory if there are any questions. Chloride 107 98 - 107 mmol/L CERNER MILLENNIUM CO2 Disregard 22 - 31 mmol/L CERNER MILLENNIUM Comment: The Bicarb value for this sample is suspected to be falsely increased due to an instrumentation error. Corrected from 32 mMol/L [HI] on 04/17/13 15:30:30 EDT by Juan Lisa. Anion Gap 2(L) 5 - 15 mmol/L CERN[facility] MILLENNIUM Calcium 8.7 8.5 - 10.5 mg/dL CERNER MILLENNIUM Estimated GFR >60 >=60 CERNER MILLENNIUM Comment: This estimated GFR (eGFR) value was calculated using the MDRD equation which has been validated on patients between the ages of 18 and 70. The MDRD should not be used to assess kidney function in patients < 18 years of age or in patients with extremes of body mass, or in patients with acute kidney failure. This value should be multiplied by 1.2 for patients. For further information please copy and paste the following links into your internet browser. http://www.nkdep.nih.gov/lab-evaluation.shtml http://www.kidney.org/professionals/ Blood specimen (specimen) 04/16/2013 4:07 AM EDT 04/16/2013 4:18 AM EDT Narrative Resulting Agency Comment Spec In Lab Tavon Reed MD CHEMISTRY ORDERABLES [facility] * (ABNORMAL) CBC (with Diff) (04/16/2013 4:07 AM EDT) WBC 9.0 4.0 - 10.0 x10(3)/mcL CERNER MILLENNIUM RBC 4.05 3.93 - 5.22 x10(6)/mcL CERNER MILLENNIUM Hemoglobin 11.3 11.2 - 15.7 gm/dL CERNER MILLENNIUM Hematocrit 37.2 34.0 - 45.0 % CERNER MILLENNIUM MCV 91.9 79.0 - 94.0 fL CERNER MILLENNIUM MCH 27.9 26.6 - 32.2 pg CERNER MILLENNIUM MCHC 30.4(L) 32.0 - 36.5 gm/dL CERNER MILLENNIUM Platelets 218 145 - 370 x10(3)/mcL CERNER MILLENNIUM RDWSD 51.7(H) 35.0 - 46.0 fL CERNER MILLENNIUM RDWCV 15.3(H) 10.9 - 14.4 % CERNER MILLENNIUM MPV 9.7 9.0 - 12.0 fL CERNER MILLENNIUM Blood specimen (specimen) 04/16/2013 4:07 AM EDT 04/16/2013 4:17 AM EDT Narrative Resulting Agency Comment Spec In Lab Tavon Reed MD HEMATOLOGY ORDERABLE S [facility] * (ABNORMAL) APTT (04/16/2013 4:07 AM EDT) PTT 116(H) 25 - 35 sec CERNER MILLENNIUM Comment: Recommended therapeutic PTT range for full dose unfractionated heparin is 80-114 seconds. Blood specimen (specimen) 04/16/2013 4:07 AM EDT 04/16/2013 4:18 AM EDT Narrative Resulting Agency Comment Spec In Lab Freddy Mejias MD HEMATOLOGY ORDERABLE S [facility] * Prothrombin Time (04/16/2013 4:07 AM EDT) PT 13.2 12.0 - 15.0 sec CERNER MILLENNIUM Comment: [facility] Transfusion Committee Guidelines: INR less than 2.0, PTT less than OR equal to 43.5 seconds, or Fibrinogen greater than or equal to 100 mg/dl indicate adequate procoagulant activity for hemostasis in patients without underlying bleeding disorders. INR 1.0 0.9 - 1.1 CERNER MILLENNIUM Blood specimen (specimen) 04/16/2013 4:07 AM EDT 04/16/2013 4:18 AM EDT Narrative Resulting Agency Comment Spec In Lab Freddy Mejias MD HEMATOLOGY ORDERABLE S Performing Organization Address [facility] Co de Phone Number [facility] * (ABNORMAL) APTT (04/15/2013 10:00 PM EDT) PTT 111(H) 25 - 35 sec [facility] Comment: Recommended therapeutic PTT range for full dose unfractionated heparin is 80-114 seconds. Blood specimen (specimen) 04/15/2013 10:00 PM EDT 04/15/2013 11:27 PM EDT Narrative Resulting Agency Comment Spec In Lab Freddy Mejias MD HEMATOLOGY ORDERABLE S Performing Organization Address [facility] de Phone Number [facility] * POCT Glucose (04/15/2013 8:50 PM EDT) POC Glucose 127 60 - 199 mg/dL [facility] Comment: Supplemental ranges: <110 mg/dL before meals <200 mg/dL all other times of the day Blood specimen (specimen) 04/15/2013 8:50 PM EDT 04/15/2013 8:50 PM EDT Freddy Mejias MD POINT OF CARE TEST O RDERABLES Performing Organization Address [facility] de Phone Number [facility] * (ABNORMAL) APTT (04/15/2013 5:00 PM EDT) PTT 108(H) 25 - 35 sec [facility] Comment: Recommended therapeutic PTT range for full dose unfractionated heparin is 80-114 seconds. Blood specimen (specimen) 04/15/2013 5:00 PM EDT 04/15/2013 11:16 PM EDT Narrative Resulting Agency Comment Spec In Lab Freddy Mejias MD HEMATOLOGY ORDERABLE S Performing Organization Address [facility] Co de Phone Number [facility] * POCT Glucose (04/15/2013 3:54 PM EDT) POC Glucose 133 60 - 199 mg/dL [facility] Comment: Supplemental ranges: <110 mg/dL before meals <200 mg/dL all other times of the day Blood specimen (specimen) 04/15/2013 3:54 PM EDT 04/15/2013 3:54 PM EDT Freddy Mejias MD POINT OF CARE TEST O RDERAKE Performing Organization Address [facility] de Phone Number [facility] * EKG 12 Lead (04/15/2013 12:49 PM EDT) Ventricular rate 43 BPM MUSE SYSTEM Atrial Rate 43 BPM MUSE SYSTEM P-R Interval 156 ms MUSE SYSTEM QRS Duration 84 ms MUSE SYSTEM Q-T Interval 508 ms MUSE SYSTEM QTC Calculated (Bezet) 429 ms MUSE SYSTEM Calculated P [place] 42 degrees MUSE SYSTEM Calculated R [place] 36 degrees MUSE SYSTEM Calculated T [place] 146 degrees MUSE SYSTEM INTERPRETATION Marked sinus bradycardia ST & T wave abnormality, consider anterolateral ischemia Abnormal ECG When compared with ECG of 15-APR-2013 07:17, (unconfirmed) No significant change was found Confirmed by MD NGHIA, JENNY ([id number]) on 04/16/2013 5:25:05 PM MUSE SYSTEM 04/15/2013 12:4 9 PM EDT 04/16/2013 5:25 PM EDT Tavon Reed MD ECG ORDERABLES Performing Organization Address [facility] Phone Number MUSE SYSTEM * POCT Glucose (04/15/2013 11:27 AM EDT) POC Glucose 99 60 - 199 mg/dL [facility] Comment: Supplemental ranges: <110 mg/dL before meals <200 mg/dL all other times of the day Blood specimen (specimen) 04/15/2013 11:27 AM EDT 04/15/2013 11:27 AM EDT Freddy Mejias MD POINT OF CARE TEST O AL[place] Performing Organization Address [facility] de Phone Number [facility] * Cardiac Enzymes (04/15/2013 10:28 AM EDT) Troponin-T <0.03 <=0.03 ng/mL [facility] Comment: 0.03 ng/mL: Represents the 99th percentile upper reference limit for normals. >0.03 ng/mL: Elevated cardiac troponin T level indicative of myocardial damage. Diagnosis of acute, evolving or recent SD requires a typical rise and gradual fall of cTnT with at least ONE of the following: a) Ischemic symptoms b) Development of pathologic Q waves on the ECG c) ECG changes indicative of eschemia (S-T segment elevation/depression) d) Coronary artery intervention Serial bloods should be obtained for testing on admission, at 6 to 9 hrs and again at 12 to 24 hrs if earlier samples are negative and the clinical index of suspicion is high. Reference: [Myocardial infarction redefined a consensus document of the [employer] Society of Cardiology/[place] [employer] Committee for the redefinition of myocardial infarction. Journal of the [place] [employer] of Cardiology 2000; 36: 959-969] CK, Total 47 0 - 160 unit/L [facility] Blood specimen (specimen) 04/15/2013 10:28 AM EDT 04/15/2013 10:37 AM EDT Narrative Resulting Agency Comment Spec In Lab Tavon Reed MD CHEMISTRY ORDERABLES Performing Organization Address [facility] Co de Phone Number [facility] * (ABNORMAL) APTT (04/15/2013 10:28 AM EDT) Pathologist [facility] PTT 66(H) 25 - 35 sec [facility] Comment: Recommended therapeutic PTT range for full dose unfractionated heparin is 80-114 seconds. Blood specimen (specimen) 04/15/2013 10:28 AM EDT 04/15/2013 10:37 AM EDT Narrative Resulting Agency Comment Spec In Lab Freddy Mejias MD HEMATOLOGY ORDERABLE S Performing Organization Address City/[facility]/ZIP Co de Phone Number [facility] * XR chest routine PA & lateral (04/15/2013 8:31 AM EDT) Anatomical Region Laterality Modality Chest N/A Radiographic Ara ging 04/15/2013 8:31 AM EDT Narrative 04/15/2013 12:56 PM EDT Examination CHEST ROUTINE 2 VIEWS Clinical History Unstable angina & SOB Comparison 04/14/2013 technique chest x-ray. Technique PA and lateral chest x-ray Findings Interstitial pulmonary edema is present. ??No pleural effusions. ??Heart size stable and upper limits of normal. Impression Interstitial pulmonary edema and borderline cardiomegaly. ??No pleural effusion. ?? No pneumonia. Procedure Note Anthony Richey MD - 04/15/2013 Examination CHEST ROUTINE 2 VIEWS Clinical History Unstable angina & SOB Comparison 04/14/2013 technique chest x-ray. Technique PA and lateral chest x-ray Findings Interstitial pulmonary edema is present. No pleural effusions. Heartsize stable and upper limits of normal. Impression Interstitial pulmonary edema and borderline cardiomegaly. No pleuraleffusion. No pneumonia. Tavon Reed MD IMG DX ORDERABLES * POCT Glucose (04/15/2013 7:59 AM EDT) POC Glucose 108 60 - 199 mg/dL [facility] [employer] Comment: Supplemental ranges: <110 mg/dL before meals <200 mg/dL all other times of the day Blood specimen (specimen) 04/15/2013 7:59 AM EDT 04/15/2013 7:59 AM EDT Freddy Mejias MD POINT OF CARE TEST O RDERABLES [facility] * EKG 12 Lead (04/15/2013 7:17 AM EDT) Ventricular rate 57 BPM MUSE SYSTEM Atrial Rate 57 BPM MUSE SYSTEM P-R Interval 148 ms MUSE SYSTEM QRS Duration 82 ms MUSE SYSTEM Q-T Interval 474 ms MUSE SYSTEM QTC Calculated (Bezet) 461 ms MUSE SYSTEM Calculated P [employer] 41 degrees MUSE SYSTEM Calculated R [employer] 54 degrees MUSE SYSTEM Calculated T [employer] 123 degrees MUSE SYSTEM INTERPRETATION Sinus bradycardia with sinus arrhythmia T wave abnormality, consider anterolateral ischemia Abnormal ECG When compared with ECG of 14-APR-2013 22:59, (unconfirmed) Inverted T waves have replaced nonspecific T wave abnormality in Lateral leads Confirmed by MD NGHIA, JENNY ([id number]) on 04/16/2013 12:55:43 PM MUSE SYSTEM 04/15/2013 7:17 AM EDT 04/16/2013 12:55 PM EDT Sergo Goins MD ECG ORDERABLES MUSE SYSTEM * XR chest routine PA & lateral (04/15/2013 5:07 AM EDT) Anatomical Region Laterality Modality Chest N/A Radiographic Ara ging 04/15/2013 5:07 AM EDT Narrative 04/15/2013 8:34 AM EDT Examination CHEST ROUTINE 2 VIEWS Clinical History chest pain Comparison 04/09/2013 Technique AP and lateral views of the chest were obtained at 70 degrees upright in the a stretcher ?? Findings Heart and mediastinal contours are unchanged and within normal limits. ??The lungs are clear. Without evidence of focal airspace consolidation, effusions or pneumothoraces. Mild degenerative changes are again noted in the thoracic spine, unchanged. ?? Impression No acute cardiopulmonary abnormality. Procedure Note Renetta Bundy MD - 04/15/2013 Examination CHEST ROUTINE 2 VIEWS Clinical History chest pain Comparison 04/09/2013 Technique AP and lateral views of the chest were obtained at 70 degrees upright inthe a stretcher Findings Heart and mediastinal contours are unchanged and within normal limits.The lungs are clear. Without evidence of focal airspace consolidation,effusions or pneumothoraces. Mild degenerative changes are again noted in the thoracic spine, unchanged. Impression No acute cardiopulmonary abnormality. Freddy Mejias MD IMG DX ORDERABLES * Cardiac Enzymes (04/15/2013 4:54 AM EDT) Troponin-T <0.03 <=0.03 ng/mL [facility] Comment: 0.03 ng/mL: Represents the 99th percentile upper reference limit for normals. >0.03 ng/mL: Elevated cardiac troponin T level indicative of myocardial damage. Diagnosis of acute, evolving or recent SD requires a typical rise and gradual fall of cTnT with at least ONE of the following: a) Ischemic symptoms b) Development of pathologic Q waves on the ECG c) ECG changes indicative of eschemia (S-T segment elevation/depression) d) Coronary artery intervention Serial bloods should be obtained for testing on admission, at 6 to 9 hrs and again at 12 to 24 hrs if earlier samples are negative and the clinical index of suspicion is high. Reference: [Myocardial infarction redefined a consensus document of the Joint Society of Cardiology/[place] College [employer] Committee for the redefinition of myocardial infarction. Journal of the [place] College of [employer]iology 2000; 36: 959-969] CK, Total 36 0 - 160 unit/L [facility] Blood specimen (specimen) 04/15/2013 4:54 AM EDT 04/15/2013 5:33 AM EDT Narrative Resulting Agency Comment Spec In Lab Tavon Reed MD CHEMISTRY ORDERABLES [facility] * Hemoglobin A1c (04/15/2013 4:54 AM EDT) Hemoglobin A1C 6.1 4.3 - 6.1 % [facility] Comment: The [place] Diabetes Association (ADA) has stated that HbA1c values >or= 6.5% are consistent with the diagnosis of diabetes mellitus. In the absence of hyperglycemia (i.e. plasma glucose > 200 mg/dL) or classic symptoms of hyperglycemia a repeat measurement of HbA1c should be performed on a separate sample to confirm the diagnosis. The ADA also considers an HbA1c value between 5.7% and 6.4% to be consistent with an increased risk of diabetes (prediabetes). Patients with an HbA1c value in this range should be counseled about their increased risk of progressing to diabetes. Reference: Position Statement: Standards of Medical Care in Diabetes 2013. Diabetes Care 2013:36;suppl 1:S11-S66. Est Avg Gluc 128 mg/dL [facility] Comment: eAG equivalents for HbA1c percentages: HbA1c(%) ?eAG(mg/dL) 6.0 ?126 6.5 ?140 7.0 ?154 7.5 ?169 8.0 ?183 8.5 ?197 9.0 ?212 9.5 ?226 10.0 ? 240 Limitations: The eAG calculation has not been validated on women, individuals below 18 years old and above 70 years old, and individuals with hemoglobinopathies. Additional resources are available on the ADA website: ??http://professional.diabetes.org/glucosecalculator.aspx Mukesh AMAYA, Antonio J, Abraham R, et al. ??Translating the A1C assay into estimated average glucose values. ??Diabetes Care 2008:31(8):6361-7959. Blood specimen (specimen) 04/15/2013 4:54 AM EDT 04/15/2013 5:33 AM EDT Narrative Resulting Agency Comment Spec In Lab Tavon Reed MD CHEMISTRY ORDERABLES [facility] * (ABNORMAL) Lipid panel (fasting) (04/15/2013 4:54 AM EDT) Chol, Total 159 <=199 mg/dL [facility] Comment: Recommendations of the NCEP Adult Treatment Panel for the following risk cutoff thresholds for the [place] population: Desirable: <200 mg/dL Borderline High: 200-239 mg/dL High: > or = 240 mg/dL Triglycerides 138 <=149 mg/dL [facility] Comment: Reference Range: Normal triglycerides: ??<150 mg/dL Borderline high: ??150-199 mg/dL High: ??200-499 mg/dL Very high: ??>gu=298 mg/dL KIP 2001; 285(19):3900-5255 HDL 30(L) >=40 mg/dL [facility] Comment: Reference range: ??Low HDL: ?? < 40 mg/dL ??Normal: ?40-60 mg/dL ??Desirable: > 60 mg/dL KIP 2001; 285(19):2341-8897 LDL Cholesterol 101(H) <=99 mg/dL [facility] Comment: Reference range: ?? Optimal: ?<100 mg/dL ?? Near Optimal/Above Optimal: ?? 100-129 mg/dL ?? Borderline high: ?130-159 mg/dL ?? High: ? 160-189 mg/dL ?? Very high: ?>ya=155 mg/dL KIP 2001: 285(19):4021-5282 Chol/HDL Ratio 5.3 ratio [facility]ORSAMUEL Jing SALAZAR Comment: A Cholesterol to HDL ratio below 4:1 is desirable. ??Studies suggest that increased CAD risk occurs at ratios above 5 for females and above 6 for men. ? [place] Heart Association ??(http://www.americanheart.org) ? Sadie Int Med, 1994; 121:641 ? AM J Med, 1998; 105(1A):48S Blood specimen (specimen) 04/15/2013 4:54 AM EDT 04/15/2013 5:33 AM EDT Narrative Resulting Agency Comment Spec In Lab Tavon Reed MD CHEMISTRY ORDERABLES [facility] * (ABNORMAL) Hepatic Function Panel (04/15/2013 4:54 AM EDT) Total Protein 6.3(L) 6.4 - 8.3 gm/dL [facility] Albumin 3.8 3.2 - 5.2 gm/dL [facility] MILLENNIUM AST 14 0 - 30 unit/L [facility] ALT 12 0 - 30 unit/L [facility] MILLENNI[facility] Alk Phos 86 40 - 104 unit/L [facility] MILLENNIUM Total Bilirubin 0.1(L) 0.2 - 1.3 mg/dL [facility] MILLENNIUM Bili, Direct <0.1 0.0 - 0.3 mg/dL [facility] MILLENNIUM Blood specimen (specimen) 04/15/2013 4:54 AM EDT 04/15/2013 5:33 AM EDT Narrative Resulting Agency Comment Spec In Lab Tavon Reed MD CHEMISTRY ORDERABLES Performing Organization Address [facility] de Phone Number [facility] * TSH (04/15/2013 4:54 AM EDT) TSH 1.73 0.27 - 4.20 mcIU/mL CERKELSEY MONTANOIUM Blood specimen (specimen) 04/15/2013 4:54 AM EDT 04/15/2013 5:33 AM EDT Narrative Resulting Agency Comment Spec In Lab Tavon Reed MD CHEMISTRY ORDERABLES Performing Organization Address [facility] de Phone Number [facility] * Phosphorus (04/15/2013 4:54 AM EDT) Phosphorus 3.5 2.5 - 4.5 mg/dL [facility] DIEGOENNIUM Blood specimen (specimen) 04/15/2013 4:54 AM EDT 04/15/2013 5:33 AM EDT Narrative Resulting Agency Comment Spec In Lab Tavon Reed MD CHEMISTRY ORDERABLES Performing Organization Address [facility] de Phone Number [facility] * Magnesium (04/15/2013 4:54 AM EDT) Magnesium 0.84 0.69 - 1.07 mmol/L CERKELSEY CORTEZENNIUM Blood specimen (specimen) 04/15/2013 4:54 AM EDT 04/15/2013 5:33 AM EDT Narrative Resulting Agency Comment Spec In Lab Tavon Reed MD CHEMISTRY ORDERABLES Performing Organization Address [facility] Phone Number [facility] * Calcium (04/15/2013 4:54 AM EDT) Calcium 8.9 8.5 - 10.5 mg/dL [facility] Blood specimen (specimen) 04/15/2013 4:54 AM EDT 04/15/2013 5:33 AM EDT Narrative Resulting Agency Comment Spec In Lab Tavon Reed MD CHEMISTRY ORDERABLES Performing Organization Address [facility] Phone Number [facility] * (ABNORMAL) APTT (04/15/2013 4:53 AM EDT) PTT 62(H) 25 - 35 sec [facility] Comment: Recommended therapeutic PTT range for full dose unfractionated heparin is 80-114 seconds. Blood specimen (specimen) 04/15/2013 4:53 AM EDT 04/15/2013 5:33 AM EDT Narrative Resulting Agency Comment Spec In Lab Tavon Reed MD HEMATOLOGY ORDERABLE S Performing Organization Address [facility] Phone Number [facility] * Prothrombin Time (04/15/2013 4:53 AM EDT) PT 12.9 12.0 - 15.0 sec [facility] Comment: [facility] Transfusion Committee Guidelines: INR less than 2.0, PTT less than OR equal to 43.5 seconds, or Fibrinogen greater than or equal to 100 mg/dl indicate adequate procoagulant activity for hemostasis in patients without underlying bleeding disorders. INR 0.9 0.9 - 1.1 [facility] MILLENNIUM Blood specimen (specimen) 04/15/2013 4:53 AM EDT 04/15/2013 5:33 AM EDT Narrative Resulting Agency Comment Spec In Lab Tavon Reed MD HEMATOLOGY ORDERABLE S Performing Organization Address [facility] de Phone Number [facility] * Prothrombin Time (04/15/2013 12:45 AM EDT) PT 13.7 12.0 - 15.0 sec [facility] MILLENNIUM Comment: [facility] Transfusion Committee Guidelines: INR less than 2.0, PTT less than OR equal to 43.5 seconds, or Fibrinogen greater than or equal to 100 mg/dl indicate adequate procoagulant activity for hemostasis in patients without underlying bleeding disorders. INR 1.0 0.9 - 1.1 [facility] MILLENNIUM Blood specimen (specimen) 04/15/2013 12:45 AM EDT 04/15/2013 12:53 AM EDT Narrative Resulting Agency Comment Spec In Lab Tavon Reed MD HEMATOLOGY ORDERABLE S Performing Organization Address [facility] Phone Number [facility] * APTT (04/14/2013 11:55 PM EDT) PTT 28 25 - 35 sec [facility] MILLENNIUM Comment: Recommended therapeutic PTT range for full dose unfractionated heparin is 80-114 seconds. Blood specimen (specimen) 04/14/2013 11:55 PM EDT 04/15/2013 12:07 AM EDT Narrative Resulting Agency Comment Spec In Lab Tavon Reed MD HEMATOLOGY ORDERABLE S Performing Organization Address [facility] de Phone Number [facility] * EKG 12 Lead (04/14/2013 10:59 PM EDT) Ventricular rate 65 BPM MUSE SYSTEM Atrial Rate 65 BPM MUSE SYSTEM P-R Interval 134 ms MUSE SYSTEM QRS Duration 86 ms MUSE SYSTEM Q-T Interval 424 ms MUSE SYSTEM QTC Calculated (Bezet) 440 ms MUSE SYSTEM Calculated P [employer] 26 degrees MUSE SYSTEM Calculated R [employer] 17 degrees MUSE SYSTEM Calculated T [employer] 36 degrees MUSE SYSTEM INTERPRETATION Normal sinus rhythm with sinus arrhythmia T wave abnormality, consider anterior ischemia Abnormal ECG When compared with ECG of 14-APR-2013 22:57, (unconfirmed) No significant change was found Confirmed by MD AGRAWAL MARK ([id number]) on 04/16/2013 11:34:39 AM MUSE SYSTEM 04/14/2013 10:5 9 PM EDT 04/16/2013 11:34 AM EDT Tavon Reed MD ECG ORDERABLES Performing Organization Address [facility] Phone Number MUSE SYSTEM * EKG 12 Lead (04/14/2013 10:57 PM EDT) Ventricular rate 56 BPM MUSE SYSTEM Atrial Rate 56 BPM MUSE SYSTEM P-R Interval 144 ms MUSE SYSTEM QRS Duration 84 ms MUSE SYSTEM Q-T Interval 430 ms MUSE SYSTEM QTC Calculated (Bezet) 414 ms MUSE SYSTEM Calculated P [employer] 25 degrees MUSE SYSTEM Calculated R [employer] 22 degrees MUSE SYSTEM Calculated T [employer] 41 degrees MUSE SYSTEM INTERPRETATION Sinus bradycardia with Sinus arrhythmia T wave abnormality, consider anterolateral ischemia Abnormal ECG Confirmed by MD AGRAWAL MARK ([id number]) on 04/16/2013 11:34:11 AM MUSE SYSTEM 04/14/2013 10:5 7 PM EDT 04/16/2013 11:34 AM EDT Tavon Reed MD ECG ORDERABLES Performing Organization Address [facility] Phone Number MUSE SYSTEM * EKG 12 Lead (04/14/2013 10:56 PM EDT) Ventricular rate 53 BPM MUSE SYSTEM Atrial Rate 53 BPM MUSE SYSTEM P-R Interval 142 ms MUSE SYSTEM QRS Duration 74 ms MUSE SYSTEM Q-T Interval 420 ms MUSE SYSTEM QTC Calculated (Bezet) 394 ms MUSE SYSTEM Calculated P [employer] 32 degrees MUSE SYSTEM Calculated R [employer] 22 degrees MUSE SYSTEM Calculated T [employer] 39 degrees MUSE SYSTEM INTERPRETATION Sinus bradycardia Sinus arrhythmia T wave abnormality, consider anterolateral ischemia Abnormal ECG Confirmed by MD AGRAWAL MARK ([id number]) on 04/16/2013 11:33:23 AM MUSE SYSTEM 04/14/2013 10:5 6 PM EDT 04/16/2013 11:33 AM EDT Freddy Mejias MD ECG ORDERABLES Performing Organization Address [facility]/State/ZIP Co de Phone Number MUSE SYSTEM * POCT urine (04/14/2013 10:41 PM EDT) POC Urine HCG Negative Negative - Negative POC Control Internal Controls Acceptable Tavon Reed MD POINT OF CARE TEST O RDERABLES * POCT urine dipstick (04/14/2013 10:41 PM EDT) Pathologist [facility] POC Sp [place] 1.010 1.002 - 1.030 POC pH, UA 7 5.0 - 8.5 POC Leuk, UA neg Negative - Negative POC Nitrite, UA neg Negative - Negative POC Protein, UA neg Negative - Negative mg/dL POC Glucose, UA neg Normal - Normal mg/dL POC Ketone, UA neg Negative - Negative POC Urobil, UA neg 0.2 - 1.0 mg/dL POC Bili, UA neg Negative - Negative POC Blood, UA neg Negative - Negative awilda/uL Tavon Reed MD POINT OF CARE TEST O RDERABLES * (ABNORMAL) Differential, Automated (04/14/2013 9:10 PM EDT) Pathologist [facility] Neutrophils % 59.6 34.0 - 71.0 % [facility] MILLENNIUM Neutr Abs (ANC) 7.47(H) 1.50 - 6.30 x10(3)/mc L [facility] MILLENNIUM Lymphocytes % 31.9 19.0 - 53.0 % [facility] MILLENNIUM Lymphocytes Abs 4.0(H) 1.0 - 3.6 x10(3)/mc L [facility] MILLENNIUM Monocytes % 6.8 4.0 - 13.0 % [facility] MILLENNIUM Monocyte Abs 0.8 0.2 - 1.0 x10(3)/mc L [facility] MILLENNIUM Eosinophils % 1.0 0.0 - 7.0 % [facility] MILLENNIUM Eosinophils Abs 0.1 0.0 - 0.5 x10(3)/mc L [facility] MILLENNIUM Basophils % 0.5 0.0 - 2.0 % [facility] MILLENNIUM Basophils Abs 0.1 0.0 - 0.2 x10(3)/mc L [facility] MILLENNIUM Immature Gran % 0.20 0.00 - 0.66 % [facility]ILLENNIUM Comment: Immature granulocytes(IG's)percentage and absolute count will include metamyelocytes, myelocytes, and promyelocytes. Blood smears from CBCs yielding IG's will be scanned manually for concordance. If this scan disagrees with the automated IG or if promyelocytes are noted, a manual differential will be performed. Fartun Gran Abs 0.03 0.00 - 0.05 x10(3)/mc L [facility] Blood specimen (specimen) 04/14/2013 9:10 PM EDT 04/14/2013 9:15 PM EDT Tavon Reed MD HEMATOLOGY ORDERABLE S Performing Organization Address [facility] de Phone Number [facility] * Gold Tube HOLD (04/14/2013 9:10 PM EDT) Gold Hold Sample in lab. [facility] Blood specimen (specimen) 04/14/2013 9:10 PM EDT 04/14/2013 9:15 PM EDT Tavon Reed MD CHEMISTRY ORDERABLES Performing Organization Address [facility] de Phone Number [facility] * Blue Tube HOLD (04/14/2013 9:10 PM EDT) Blue Hold Sample in lab. [facility] Blood specimen (specimen) 04/14/2013 9:10 PM EDT 04/14/2013 9:15 PM EDT Tavon Reed MD HEMATOLOGY ORDERABLE S Performing Organization Address [facility] Co de Phone Number [facility] * (ABNORMAL) CBC (with Diff) (04/14/2013 9:10 PM EDT) WBC 12.5(H) 4.0 - 10.0 x10(3)/mcL [facility] MILLENNIUM RBC 4.58 3.93 - 5.22 x10(6)/mcL [facility] MILLENNIUM Hemoglobin 13.3 11.2 - 15.7 gm/dL [facility] MILLENNIUM Hematocrit 41.6 34.0 - 45.0 % [facility] MILLENNIUM MCV 90.8 79.0 - 94.0 fL [facility] MILLENNIUM MCH 29.0 26.6 - 32.2 pg CERNER MILLENNIUM MCHC 32.0 32.0 - 36.5 gm/dL [facility] MILLENNIUM Platelets 265 145 - 370 x10(3)/mcL [facility] MILLENNIUM RDWSD 50.8(H) 35.0 - 46.0 fL [facility] MILLENNIUM RDWCV 15.4(H) 10.9 - 14.4 % [facility] MILLENNIUM MPV 10.3 9.0 - 12.0 fL [facility] MILLENNIUM Blood specimen (specimen) 04/14/2013 9:10 PM EDT 04/14/2013 9:15 PM EDT Narrative Resulting Agency Comment Spec In Lab Tavon Reed MD HEMATOLOGY ORDERABLE S [facility] * Cardiac Enzymes (04/14/2013 9:10 PM EDT) Troponin-T <0.03 <=0.03 ng/mL [facility] M[facility]ENNI[facility] Comment: 0.03 ng/mL: Represents the 99th percentile upper reference limit for normals. >0.03 ng/mL: Elevated cardiac troponin T level indicative of myocardial damage. Diagnosis of acute, evolving or recent SD requires a typical rise and gradual fall of cTnT with at least ONE of the following: a) Ischemic symptoms b) Development of pathologic Q waves on the ECG c) ECG changes indicative of eschemia (S-T segment elevation/depression) d) Coronary artery intervention Serial bloods should be obtained for testing on admission, at 6 to 9 hrs and again at 12 to 24 hrs if earlier samples are negative and the clinical index of suspicion is high. Reference: [Myocardial infarction redefined a consensus document of the Joint Society of Cardiology/[place] [employer] Committee for the redefinition of myocardial infarction. Journal of the [place] College [employer]iology 2000; 36: 959-969] CK, Total 49 0 - 160 unit/L [facility] MILLENNIUM Blood specimen (specimen) 04/14/2013 9:10 PM EDT 04/14/2013 9:14 PM EDT Narrative Resulting Agency Comment Spec In Lab Tavon Reed MD CHEMISTRY ORDERABLES Performing Organization Address [facility] Co de Phone Number [facility] * Glucose, random (04/14/2013 9:10 PM EDT) Glucose Lvl 114 60 - 199 mg/dL [facility] Comment:Diabetes: >=200 mg/d L plus symptoms Blood specimen (specimen) 04/14/2013 9:10 PM EDT 04/14/2013 9:14 PM EDT Narrative Resulting Agency Comment Spec In Lab Tavon Reed MD CHEMISTRY ORDERABLES Performing Organization Address [facility] de Phone Number [facility] * Creatinine (04/14/2013 9:10 PM EDT) Creatinine 0.78 0.70 - 1.20 mg/dL [facility] Comment: Please note that the pediatric reference intervals supplied above were not validated at [facility]. Results from pediatric patients should be interpreted in conjunction to the patient's age, height and muscle mass. Estimated GFR >60 >=60 [facility] Comment: This estimated GFR (eGFR) value was calculated using the MDRD equation which has been validated on patients between the ages of 18 and 70. The MDRD should not be used to assess kidney function in patients < 18 years of age or in patients with extremes of body mass, or in patients with acute kidney failure. This value should be multiplied by 1.2 for patients. For further information please copy and paste the following links into your internet browser. http://www.nkdep.nih.gov/lab-evaluation.shtml http://www.kidney.org/professionals/ Blood specimen (specimen) 04/14/2013 9:10 PM EDT 04/14/2013 9:14 PM EDT Narrative Resulting Agency Comment Spec In Lab Tavon Reed MD CHEMISTRY ORDERABLES Performing Organization Address [facility] de Phone Number [facility] * BUN (04/14/2013 9:10 PM EDT) BUN 16 8 - 18 mg/dL [facility] MILLENNIUM Blood specimen (specimen) 04/14/2013 9:10 PM EDT 04/14/2013 9:14 PM EDT Narrative Resulting Agency Comment Spec In Lab Tavon Reed MD CHEMISTRY ORDERABLES Performing Organization Address [facility] de Phone Number [facility] * Electrolytes panel (04/14/2013 9:10 PM EDT) Sodium 138 135 - 145 mmol/L [facility] MILLENNIUM Potassium 4.2 3.5 - 5.0 mmol/L [facility] MILL[facility]NI[facility] Comment: Please note: ??Patients with WBC >100,000 may have falsely elevated Potassium levels. ??For accurate Potassium quantification in these patients send serum separator tube (gold top) for subsequent determinations. ??Contact the Clinical Chemistry Laboratory if there are any questions. Chloride 99 98 - 107 mmol/L [facility] MILLENNIUM CO2 27 22 - 31 mmol/L [facility] MILLENNIUM Anion Gap 12 5 - 15 mmol/L [facility] MILLENNIUM Blood specimen (specimen) 04/14/2013 9:10 PM EDT 04/14/2013 9:14 PM EDT Narrative Resulting Agency Comment Spec In Lab Tavon Reed MD CHEMISTRY ORDERABLES Performing Organization Address [facility] [facility] [place] Co de Phone Number [facility] * EKG 12 Lead (04/14/2013 8:57 PM EDT) Ventricular rate 67 BPM MUSE SYSTEM Atrial Rate 67 BPM MUSE SYSTEM P-R Interval 140 ms MUSE SYSTEM QRS Duration 72 ms MUSE SYSTEM Q-T Interval 372 ms MUSE SYSTEM QTC Calculated (Bezet) 393 ms MUSE SYSTEM Calculated P [place] 44 degrees MUSE SYSTEM Calculated R [place] 36 degrees MUSE SYSTEM Calculated T [place] 48 degrees MUSE SYSTEM INTERPRETATION Sinus rhythm with Premature atrial complexes ST & T wave abnormality, consider anterior ischemia Abnormal ECG When compared with ECG of 09-APR-2013 14:24, Premature atrial complexes are now Present Confirmed by MD NGHIA, JENNY ([id number]) on 04/16/2013 11:04:11 AM MUSE SYSTEM 04/14/2013 8:57 PM EDT 04/16/2013 11:04 AM EDT Freddy Mejias MD ECG ORDERABLES MUSE SYSTEM documented in this encounter Visit Diagnoses Diagnosis Unstable angina Intermediate coronary syndrome Chronic pain Other chronic pain documented in this encounter Administered Medications Inactive Administered Medications - up to 3 most recent administrations Medication Order MAR Action Action Date Dose Rate Site acetaminophen (TYLENOL) tablet 650 mg 650 mg, Oral, EVERY 4 HOURS PRN, Starting on Tue04/15/13 at 0126, Until Tue04/17/13 at 1743, Pain, Headaches, Maximum dose of acetaminophen is 4000 mg from all sources in 24 hours., Routine Given 04/16/2013 12:49 PM EDT 650 mg aspirin chewable tablet 324 mg 324 mg, Oral, ONCE, 1 dose, On 04/14/13 at 2130, Routine Given 04/14/2013 9:30 PM EDT 324 mg aspirin EC tablet 81 mg 81 mg, Oral, DAILY, First dose on Tue04/15/13 at 0900, Until Discontinued, Routine Given 04/17/2013 9:26 AM EDT 81 mg Given 04/16/2013 10:00 AM EDT 81 mg Given 04/15/2013 10:31 AM EDT 81 mg atorvastatin (LIPITOR) tablet 80 mg 80 mg, Oral, EVERY EVENING, First dose on 04/15/13 at 0145, Until Discontinued, Routine Given 04/16/2013 4:17 PM EDT 80 mg Given 04/15/2013 4:00 PM EDT 80 mg Given 04/15/2013 3:07 AM EDT 80 mg bivalirudin (ANGIOMAX) 250 mg in sodium chloride 0.9% 50 mL infusion (CATTLE MANAGER) CONTINUOUS PRN, Starting on 04/16/13 at 1054, Until Tue04/16/13 at 1203, Cath (Intra-Procedure), Routine New Bag 04/16/2013 11:49 AM EDT New Bag 04/16/2013 10:54 AM EDT 201.3 mg/hr 40.3 mL/hr bumetanide (BUMEX) injection 0.5 mg 0.5 mg, Intravenous, ONCE, 1 dose, On Tue04/17/13 at 0900 Given 04/17/2013 9:30 AM EDT 0.5 mg bumetanide (BUMEX) injection 1 mg 1 mg, Intravenous, ONCE, 1 dose, On Tue04/16/13 at 1915 Given 04/16/2013 7:52 PM EDT 1 mg clopidogrel (PLAVIX) tablet 300 mg 300 mg, Oral, ONCE, 1 dose, On Tue04/15/13 at 0345, Routine Given 04/15/2013 5:01 AM EDT 300 mg clopidogrel (PLAVIX) tablet 75 mg 75 mg, Oral, DAILY, First dose on Tue04/16/13 at 0900, Until Discontinued, Routine Given 04/17/2013 9:26 AM EDT 75 mg Given 04/16/2013 10:00 AM EDT 75 mg diaZEPam (VALIUM) tablet 5 mg 5 mg, Oral, ONCE, 1 dose, On Tue04/16/13 at 0945, Cath (Day of Procedure), Routine Given 04/16/2013 10:00 AM EDT 5 mg diphenhydrAMINE (BENADRYL) capsule 25 mg 25 mg, Oral, ONCE, 1 dose, On Tue04/16/13 at 0945, Cath (Day of Procedure), Routine Given 04/16/2013 10:00 AM EDT 25 m g fentaNYL (PF) 50 mcg/mL injection 1 dose, Starting on Tue04/16/13 at 1326, Until Tue04/16/13 at 1730, CRISTOBAL HUI: cabinet override fentaNYL 50mcg/mL injection 25 mcg, Intravenous, Administer over 4 Hours, EVERY 15 MIN PRN, Starting on Tue04/16/13 at 1233, Until Tue04/16/13 at 1944, Pain, For sheath removal, May repeat once, while in Cath Recovery Unit, Cath (Recovery-Hospital Unit), Routine Given 04/16/2013 3:44 PM EDT 25 mcg Given 04/16/2013 2:50 PM EDT 25 mcg Given 04/16/2013 2:05 PM EDT 25 mcg heparin (porcine) injection 2,000-4,000 Units 2,000-4,000 Units, Intravenous, BOLUS PER HEPARIN PROTOCOL, Starting on 04/14/13 at 2346, Until 04/16/13 at 1854, Per Protocol, Adjust to dosing chart, Patient Weight 110-114 kg PTT less than 60 seconds - 4,000 units PTT 60-79 seconds - 2,000 units PTT 80-114 seconds - no bolus , Routine Given 04/15/2013 12:10 AM EDT 4,000 Units Left Arm heparin (porcine) injection 4,000 Units 4,000 Units, Intravenous, ONCE, 1 dose, On Tue04/15/13 at 0015, Patient Weight 110-114 kg INITIAL LOADING DOSE , Routine Given 04/15/2013 12:06 AM EDT 4,000 Units heparin 25,000 units in dextrose 5% 500 mL infusion 350-7,000 Units/hr (rounded to 7-140 mL/hr), Intravenous, CONTINUOUS, Starting on [place] 04/15/13 at 0015, Until Tue04/16/13 at 1854, Patient Weight 110-114 kg Initial dose - 1,000 units/hr = 20 mL/hr PTT less than 60 sec - increase by 450 units/hr = 9 mL/hr PTT 60-79 sec- increase by 200 units/hr = 4 mL/hr PTT 80-114 sec - no change PTT 115-129 sec - decrease by 100 units/hr = 2 mL/hr PTT 130-145 sec - stop infusion for 30 min then decrease by 200 units/hr = 4 mL/hr PTT greater than 145 sec - stop infusion for 60 min then decrease by 350 units/hr = 7 mL/hr PTT greater than 145 sec X 2 - call warehouse attendant See Bolus dosing guidance for aPTT values less than 80 seconds under PRN medications, Routine Rate/Dose Change 04/16/2013 5:04 AM EDT 1,300 Units/hr 26 mL/hr Rate/Dose Verify 04/15/2013 3:45 PM EDT 1,400 Units/hr 28 mL/hr Rate/Dose Change 04/15/2013 11:01 AM EDT 1,400 Units/hr 28 mL/hr hydrALAZINE (APRESOLINE) injection 10 mg 10 mg, Intravenous, EVERY 4 HOURS PRN, Starting on Tue04/15/13 at 0507, Until Tue04/17/13 at 1743, High Blood Pressure, Please administer for SBP > 160mmHg. Given 04/16/2013 1:21 PM EDT 10 mg hydroCODone-acetaminophen (VICODIN) 5-500 mg per tablet 1 tablet 1 tablet, Oral, EVERY 4 HOURS PRN, Starting on 04/15/13 at 0126, Until Tu04/17/13 at 1743, Pain, Maximum dose of acetaminophen is 4000 mg from all sources in 24 hours., Routine Given 04/17/2013 2:00 PM EDT 1 tablet Given 04/17/2013 9:37 AM EDT 1 tablet Given 04/16/2013 8:47 PM EDT 1 tablet labetalol (NORMODYNE;TRANDATE) injection 10 mg 10 mg, Intravenous, ONCE, 1 dose, On 04/14/13 at 2230, STAT Given 04/14/2013 10:25 PM EDT 10 mg lamoTRIgine (LAMICTAL) tablet 25 mg 25 mg, Oral, DAILY, First dose on 04/15/13 at 0900, Until Discontinued, Routine Given 04/16/2013 8:40 PM EDT 25 mg Given 04/15/2013 10:31 AM EDT 25 mg levothyroxine (SYNTHROID) tablet 50 mcg 50 mcg, Oral, EVERY MORNING, First dose on 04/15/13 at 0600, Until Discontinued, Routine Given 04/17/2013 5:55 AM EDT 50 mcg Given 04/16/2013 6:00 AM EDT 50 mcg Given 04/15/2013 5:01 AM EDT 50 mcg lisinopril (PRINIVIL;ZESTRIL) tablet 15 mg 15 mg, Oral, ONCE, 1 dose, On 04/15/13 at 1245, Routine Given 04/15/2013 2:43 PM EDT 15 mg lisinopril (PRINIVIL;ZESTRIL) tablet 20 mg 20 mg, Oral, DAILY, First dose on 04/16/13 at 0900, Until Discontinued, Hold for SBP<100, Routine Given 04/17/2013 9:25 AM EDT 20 mg Given 04/16/2013 4:17 PM EDT 20 mg lisinopril (PRINIVIL;ZESTRIL) tablet 5 mg 5 mg, Oral, DAILY, First dose on 04/15/13 at 0900, Until Discontinued, Please hold for SBP < 100, Routine Given 04/15/2013 10:31 AM EDT 5 mg methocarbamol (ROBAXIN) tablet 500 mg 500 mg, Oral, 4 TIMES DAILY, First dose on Tue04/15/13 at 0900, Until Discontinued, Routine Given 04/17/2013 1:04 PM EDT 500 mg Given 04/17/2013 9:25 AM EDT 500 mg Given 04/16/2013 9:00 PM EDT 500 mg metoprolol (LOPRESSOR) tablet 12.5 mg 12.5 mg, Oral, EVERY 6 HOURS SCHEDULED, First dose (after last modification) on Tue04/15/13 at 1015, Until Discontinued, Please hold for HR < 50 or SBP < 90. Thanks., Routine Given 04/15/2013 10:58 AM EDT 12.5 mg metoprolol (LOPRESSOR) tablet 12.5 mg 12.5 mg, Oral, EVERY 8 HOURS SCHEDULED, First dose (after last modification) on Tue04/15/13 at 2200, Until Discontinued, Please hold for HR < 50 or SBP < 90. Thanks., Routine Given 04/17/2013 2:32 PM EDT 12.5 mg Given 04/17/2013 5:55 AM EDT 12.5 mg Given 04/16/2013 10:28 PM EDT 12.5 mg midazolam (VERSED) 1 mg/mL injection 1 dose, Starting on Tue04/16/13 at 1343, Until Tue04/16/13 at 1745, LÓPEZ DAY: cabinet override midazolam (VERSED) injection 1 mg 1 mg, Intravenous, Administer over 4 Hours, EVERY 30 MIN PRN, Starting on Tue04/16/13 at 1233, Until Tue04/16/13 at 1851, Anxiety, For sheath removal, May repeat once while in Cath Recovery Unit, Cath (Recovery-Hospital Unit), Routine Given 04/16/2013 2:51 PM EDT 1 mg Given 04/16/2013 1:45 PM EDT 1 mg morphine 2 mg/mL carpuject 0.6 mg 0.6 mg (0.5 mg), Intravenous, ONCE, 1 dose, On Tue04/16/13 at 1615, Routine Given 04/16/2013 4:08 PM EDT 0.6 mg nicotine (NICODERM CQ) 14 mg/24 hr patch 14 mg 14 mg, Transdermal, Administer over 24 Hours, DAILY, First dose on Tue04/15/13 at 0900, Until Discontinued, Routine Given 04/17/2013 9:32 AM EDT 14 mg Given 04/16/2013 10:00 AM EDT 14 mg Given 04/15/2013 10:59 AM EDT 14 mg nicotine (NICODERM CQ) patch REMOVAL Transdermal, DAILY, First dose on Tue04/16/13 at 0900, Until Discontinued, Remove Nicotine Patch Given 04/17/2013 9:32 AM EDT 1 patch Given 04/16/2013 10:00 AM EDT 1 patch nitroGLYcerin (NITROSTAT) SL tablet 0.4 mg 0.4 mg, Sublingual, EVERY 5 MIN PRN, Starting on Tue04/15/13 at 0126, Until Tue04/17/13 at 1743, Chest pain, May repeat every 5 minutes for a total of three doses. Notify provider if chest pain not relieved with nitroglycerin. Do not administer nitroglycerin if the patinet has received or taken phosphodiesterase (PDE-5) inhibitors such as sildenafil, tadalafil or vardenafil within the last 24 to 72 hours., Routine Given 04/15/2013 12:26 PM EDT 0.4 mg nitroGLYcerin 50 mg in dextrose 5% 250 mL infusion 0-20 mcg/min (rounded to 0-6 mL/hr), Intravenous, CONTINUOUS, Starting on 04/14/13 at 2330, Until Tue04/15/13 at 1227, Maximum dose: 200 mcg/min Please hold for SBP < 125 and titrate to achieve SBP 130-140bpm., STAT Rate/Dose Verify 04/15/2013 2:51 AM EDT 20 mcg/min 6 mL/hr Rate/Dose Change 04/15/2013 1:30 AM EDT 20 mcg/min 6 mL/hr New Bag 04/14/2013 11:13 PM EDT 10 mcg/min 3 mL/hr nitroGLYcerin 50 mg in dextrose 5% 250 mL infusion 0-200 mcg/min (rounded to 0-60 mL/hr), Intravenous, CONTINUOUS, Starting on Tue04/15/13 at 1245, Until Tue04/17/13 at 0558, Maximum dose: 200 mcg/min Please hold for SBP < 125 and titrate to achieve SBP 130-140bpm., Routine New Bag 04/16/2013 1:33 PM EDT 20 mcg/m in 6 mL/hr Restarted 04/16/2013 12:50 PM EDT 10 mcg/min 3 mL/hr Restarted 04/16/2013 11:05 AM EDT 10 mcg/min 3 mL/hr pantoprazole (PROTONIX) tablet 40 mg 40 mg, Oral, DAILY, First dose on Tue04/15/13 at 0900, Until Discontinued, Restricted to patients on clopidpgrel (PLAVIX) who require a proton pump inhibitor Given 04/17/2013 9:25 AM EDT 40 mg Given 04/16/2013 10:00 AM EDT 40 mg Given 04/15/2013 10:31 AM EDT 40 mg perflutren protein-A microspheres (OPTISON) 0.22 mg/mL injection 1.5 mL 1.5 mL, Intravenous, ONCE PRN, 1 dose, Starting on Tue04/16/13 at 1012, Until Tue04/16/13 at 0800, for enhancement of sub-optimal echo images, Echo Lab (Intra-Procedure), Routine Given 04/16/2013 8:00 AM EDT 1.5 mLs potassium chloride (K-DUR/KLOR-CON) extended release tablet 20 mEq 20 mEq, Oral, EVERY 2 HOURS, 2 doses, First dose on Tue04/17/13 at 1015, Last dose on Tue04/17/13 at 1215, Routine Given 04/17/2013 1:04 PM EDT 20 mEq Given 04/17/2013 11:38 AM EDT 20 mEq prazosin (MINIPRESS) capsule 3 mg 3 mg, Oral, NIGHTLY, First dose on Tue04/15/13 at 0145, Until Discontinued, Routine Given 04/16/2013 9:00 PM EDT 2 mg Given by Other 04/15/2013 9:00 PM EDT 3 mg Given 04/15/2013 3:07 AM EDT 3 mg QUEtiapine (SEROQUEL) tablet 25 mg 25 mg, Oral, DAILY WITH LUNCH, First dose on Tue04/15/13 at 1200, Until Discontinued, Routine Given 04/17/2013 12:33 PM EDT 25 mg Given 04/16/2013 4:18 PM EDT 25 mg Given 04/15/2013 1:24 PM EDT 25 mg QUEtiapine (SEROQUEL) XR tablet 50 mg 50 mg, Oral, NIGHTLY, First dose on Tue04/15/13 at 0145, Until Discontinued, Routine Given 04/16/2013 10:2 3 PM EDT 50 mg Given by Other 04/15/2013 9:00 PM EDT 50 mg Given 04/15/2013 3:07 AM EDT 50 mg sodium chloride 0.9 % flush 5 mL 5 mL, Intravenous, EVERY 12 HOURS, First dose on Tue04/15/13 at 0145, Until Discontinued Given 04/17/2013 1:00 PM EDT 5 mLs Given 04/17/2013 1:45 AM EDT 5 mLs Given 04/16/2013 1:45 PM EDT 5 mLs sodium chloride 0.9 % flush 5 mL 5 mL, Intravenous, EVERY 12 HOURS, First dose on Tue04/16/13 at 0945, Until Discontinued, Cath (Day of Procedure), Routine Given 04/17/2013 9:32 AM EDT 5 mLs Given 04/16/2013 9:45 PM EDT 5 mLs Given 04/16/2013 10:00 AM EDT 5 mLs sodium chloride 0.9% infusion 100 mL/hr, Intravenous, CONTINUOUS, Starting on Tue04/15/13 at 1700, Until Tue04/17/13 at 1743 Rate/Dose Change 04/16/2013 5:56 AM EDT 100 mL/hr 100 mL/hr Rate/Dose Change 04/16/2013 5:07 AM EDT 100 mL/hr 100 mL/ hr New Bag 04/15/2013 4:01 PM EDT 200 mL/hr 200 mL/hr sodium chloride 0.9% infusion 100 mL/hr, Intravenous, CONTINUOUS, Starting on Tue04/16/13 at 0945, Until Tue04/16/13 at 1206, Cath (Day of Procedure) Rate/Dose Verify 04/16/2013 9:45 AM EDT 100 mL/hr 100 mL/hr sodium chloride 0.9% infusion 100 mL/hr, Intravenous, CONTINUOUS, Starting on Tue04/16/13 at 1230, Until Tue04/16/13 at 2229 New Bag 04/16/2013 12:30 PM EDT 100 mL/hr 100 mL/hr traMADol (ULTRAM) tablet 50 mg 50 mg, Oral, EVERY 6 HOURS PRN, Starting on Tue04/15/13 at 0126, Until Tue04/17/13 at 1743, Pain, Routine Given 04/17/2013 11:48 AM EDT 50 mg Given 04/16/2013 6:20 PM EDT 50 mg Given 04/16/2013 10:00 AM EDT 50 mg traZODone (DESYREL) tablet 50 mg 50 mg, Oral, NIGHTLY, First dose on 04/15/13 at 0145, Until Discontinued, Routine Given 04/16/2013 9:00 PM EDT 50 mg Given by Other 04/15/2013 9:00 PM EDT 50 mg Given 04/15/2013 2:41 AM EDT 50 mg documented in this encounter Active and Recently Administered Medications Times are shown in EDT. Scheduled Medication Order 04/15/2013 04/16/2013 04/17/2013 aspirin EC tablet 81 mg 81 mg, Oral, DAILY, First dose on Tue04/15/13 at 0900, Until Discontinued, Routine 1031 (Given - Provider: Juliann Crystal RN) 1000 (Given - Provider: Rocio Garrison RN) 0926 (Given - Provider: Margarita Sharma RN) atorvastatin (LIPITOR) tablet 80 mg 80 mg, Oral, EVERY EVENING, First dose on Tue04/15/13 at 0145, Until Discontinued, Routine 0307 (Given - Provider: Dejah Ladd RN)1600 (Given - Provider: Juliann Crystal RN) 1617 (Given - Provider: Rocio Garrison RN) bumetanide (BUMEX) injection 0.5 mg (COMPLETED) 0.5 mg, Intravenous, ONCE, 1 dose, On Tue04/17/13 at 0900 0930 (Given - Provider: Margarita Sharma RN) bumetanide (BUMEX) injection 1 mg (COMPLETED) 1 mg, Intravenous, ONCE, 1 dose, On Tue04/16/13 at 1915 1952 (Given - Provider: Katerine Urban RN) clopidogrel (PLAVIX) tablet 300 mg (COMPLETED) 300 mg, Oral, ONCE, 1 dose, On Tue04/15/13 at 0345, Routine 0501 (Given - Provider: Dejah Ladd RN) clopidogrel (PLAVIX) tablet 75 mg 75 mg, Oral, DAILY, First dose on Tue04/16/13 at 0900, Until Discontinued, Routine 1000 (Given - Provider: Rocio Garrison RN) 0926 (Given - Provider: Margarita Sharma, FABIANA) diaZEPam (VALIUM) tablet 5 mg (COMPLETED) 5 mg, Oral, ONCE, 1 dose, On Tue04/16/13 at 0945, Cath (Day of Procedure), Routine 1000 (Given - Provider: Rocio Garrison RN) diphenhydrAMINE (BENADRYL) capsule 25 mg (COMPLETED) 25 mg, Oral, ONCE, 1 dose, On Tue04/16/13 at 0945, Cath (Day of Procedure), Routine 1000 (Given - Provider: Rocio Garrison RN) heparin (porcine) injection 4,000 Units (CANCELED) 4,000 Units, Intravenous, ONCE, 1 dose, On Tue04/15/13 at 0015, Patient Weight 110-114 kg INITIAL LOADING DOSE , Routine 0006 (Given - Provider: Donna Saunders RN) lamoTRIgine (LAMICTAL) tablet 25 mg (CANCELED) 25 mg, Oral, DAILY, First dose on Tue04/15/13 at 0900, Until Discontinued, Routine 1031 (Given - Provider: uJliann Crystal RN) 2040 (Given - Provider: Katerine Urban RN) levothyroxine (SYNTHROID) tablet 50 mcg (CANCELED) 50 mcg, Oral, EVERY MORNING, First dose on Tue04/15/13 at 0600, Until Discontinued, Routine 0501 (Given - Provider: Dejah Ladd RN) 0600 (Given - Provider: Tegan August RN) 0555 (Given - Provider: Katerine Urban RN) lisinopril (PRINIVIL;ZESTRIL) tablet 15 mg (COMPLETED) 15 mg, Oral, ONCE, 1 dose, On Tue04/15/13 at 1245, Routine 1443 (Given - Provider: Juliann Crystal RN) lisinopril (PRINIVIL;ZESTRIL) tablet 20 mg 20 mg, Oral, DAILY, First dose on Tue04/16/13 at 0900, Until Discontinued, Hold for SBP<100, Routine 1617 (Given - Provider: Rocio Garrison RN) 0925 (Given - Provider: Margarita Sharma RN) lisinopril (PRINIVIL;ZESTRIL) tablet 5 mg (CANCELED) 5 mg, Oral, DAILY, First dose on 04/15/13 at 0900, Until Discontinued, Please hold for SBP < 100, Routine 1031 (Given - Provider: Juliann Crystal RN) methocarbamol (ROBAXIN) tablet 500 mg (CANCELED) 500 mg, Oral, 4 TIMES DAILY, First dose on 04/15/13 at 0900, Until Discontinued, Routine 1031 (Given - Provider: Juliann Crystal RN)1324 (Given - Provider: Juliann Crystal RN)1601 (Given - Provider: Juliann Crystal RN)2100 (Given by Other - Provider: Tegan August RN) 1000 (Given - Provider: Rocio Garrison RN)1300 (Not Given - Provider: Rocio Garrison RN - Reason: Transfer to a Procedural area)1618 (Given - Provider: Rocio Garrison RN)2100 (Given - Provider: Katerine Urban RN) 0925 (Given - Provider: Margarita Sharma RN)1304 (Given - Provider: Margarita Sharma RN) metoprolol (LOPRESSOR) tablet 12.5 mg (CANCELED) 12.5 mg, Oral, EVERY 6 HOURS SCHEDULED, First dose (after last modification) on 04/15/13 at 1015, Until Discontinued, Please hold for HR < 50 or SBP < 90. Thanks., Routine 1058 (Given - Provider: Juliann Crystal RN) metoprolol (LOPRESSOR) tablet 12.5 mg (CANCELED) 12.5 mg, Oral, EVERY 8 HOURS SCHEDULED, First dose (after last modification) on 04/15/13 at 2200, Until Discontinued, Please hold for HR < 50 or SBP < 90. Thanks., Routine 2200 (Given by Other - Provider: Tegan August RN) 0600 (Given - Provider: Tegan August RN)1618 (Given - Provider: Rocio Garrison RN)2228 (Given - Provider: Katerine Urban RN) 0555 (Given - Provider: Katerine Urban RN)1432 (Given - Provider: Margarita Sharma RN) morphine 2 mg/mL carpuject 0.6 mg (COMPLETED) 0.6 mg (0.5 mg), Intravenous, ONCE, 1 dose, On Tue04/16/13 at 1615, Routine 1608 (Given - Provider: Rocio Garrison RN) nicotine (NICODERM CQ) 14 mg/24 hr patch 14 mg (CANCELED)(Linked Group 1) 14 mg, Transdermal, Administer over 24 Hours, DAILY, First dose on Tue04/15/13 at 0900, Until Discontinued, Routine 1059 (Given - Provider: Juliann Crystal RN) 1000 (Given - Provider: Rocio Garrison RN) 0932 (Given - Provider: Margarita Sharma RN) nicotine (NICODERM CQ) patch REMOVAL (CANCELED)(Linked Group 1) Transdermal, DAILY, First dose on Tue04/16/13 at 0900, Until Discontinued, Remove Nicotine Patch 1000 (Given - Provider: Rocio Garrison RN) 0932 (Given - Provider: Margarita Sharma RN) pantoprazole (PROTONIX) tablet 40 mg 40 mg, Oral, DAILY, First dose on Tue04/15/13 at 0900, Until Discontinued, Restricted to patients on clopidpgrel (PLAVIX) who require a proton pump inhibitor 1031 (Given - Provider: Juliann Crystal RN) 1000 (Given - Provider: Rocio Garrison RN) 0925 (Given - Provider: Margarita Sharma RN) potassium chloride (K-DUR/KLOR-CON) extended release tablet 20 mEq (COMPLETED) 20 mEq, Oral, EVERY 2 HOURS, 2 doses, First dose on Tue04/17/13 at 1015, Last dose on Tue04/17/13 at 1215, Routine 1138 (Given - Provider: Margarita Sharma RN)1304 (Given - Provider: Margarita Sharma RN) prazosin (MINIPRESS) capsule 3 mg (CANCELED) 3 mg, Oral, NIGHTLY, First dose on Tue04/15/13 at 0145, Until Discontinued, Routine 0307 (Given - Provider: Dejah Ladd RN)2100 (Given by Other - Provider: Tegan August RN) 2100 (Given - Provider: Katerine Urban RN - Comment: pt request) QUEtiapine (SEROQUEL) tablet 25 mg (CANCELED) 25 mg, Oral, DAILY WITH LUNCH, First dose on 04/15/13 at 1200, Until Discontinued, Routine 1324 (Given - Provider: Juliann Crystal RN) 1618 (Given - Provider: Rocio Garrison RN) 1233 (Given - Provider: Margarita Sharma RN) QUEtiapine (SEROQUEL) XR tablet 50 mg (CANCELED) 50 mg, Oral, NIGHTLY, First dose on 04/15/13 at 0145, Until Discontinued, Routine 0307 (Given - Provider: Dejah Ladd RN)2100 (Given by Other - Provider: Tegan August RN) 2223 (Given - Provider: Katerine Urban RN) sodium chloride 0.9 % flush 5 mL (CANCELED) 5 mL, Intravenous, EVERY 12 HOURS, First dose on 04/15/13 at 0145, Until Discontinued 0145 (Given - Provider: Dejah Ladd RN)1317 (Given - Provider: Juliann Crystal RN) 0145 (Given - Provider: Tegan August RN)1345 (Given - Provider: Rocio Garrison RN) 0145 (Given - Provider: Katerine Urban RN)1300 (Given - Provider: Margarita Sharma RN) sodium chloride 0.9 % flush 5 mL (CANCELED) 5 mL, Intravenous, EVERY 12 HOURS, First dose on 04/16/13 at 0945, Until Discontinued, Cath (Day of Procedure), Routine 1000 (Given - Provider: Rocio Garrison RN)2145 (Given - Provider: Katerine Urban, FABIANA) 0932 (Given - Provider: Margarita Sharma RN) traZODone (DESYREL) tablet 50 mg (CANCELED) 50 mg, Oral, NIGHTLY, First dose on 04/15/13 at 0145, Until Discontinued, Routine 0241 (Given - Provider: Dejah Ladd RN)2100 (Given by Other - Provider: Tegan August RN) 2100 (Given - Provider: Katerine Urban, FABIANA) Continuous Medication Order 04/15/2013 04/16/2013 04/17/2013 heparin 25,000 units in dextrose 5% 500 mL infusion (CANCELED) 350-7,000 Units/hr (rounded to 7-140 mL/hr), Intravenous, CONTINUOUS, Starting on 04/15/13 at 0015, Until 04/16/13 at 1854, Patient Weight 110-114 kg Initial dose - 1,000 units/hr = 20 mL/hr PTT less than 60 sec - increase by 450 units/hr = 9 mL/hr PTT 60-79 sec- increase by 200 units/hr = 4 mL/hr PTT 80-114 sec - no change PTT 115-129 sec - decrease by 100 units/hr = 2 mL/hr PTT 130-145 sec - stop infusion for 30 min then decrease by 200 units/hr = 4 mL/hr PTT greater than 145 sec - stop infusion for 60 min then decrease by 350 units/hr = 7 mL/hr PTT greater than 145 sec X 2 - call warehouse attendant See Bolus dosing guidance for aPTT values less than 80 seconds under PRN medications, Routine 0015 (New Bag - Provider: Donna Saunders RN)0554 (Rate/Dose Change - Provider: Dejah Ladd, FABIANA)1101 (Rate/Dose Change - Provider: Juliann Crystal, FABIANA)1545 (Rate/Dose Verify - Provider: Juliann Crystal RN) 0504 (Rate/Dose Change - Provider: Tegan August RN) nitroGLYcerin 50 mg in dextrose 5% 250 mL infusion (CANCELED) 0-20 mcg/min (rounded to 0-6 mL/hr), Intravenous, CONTINUOUS, Starting on 04/14/13 at 2330, Until 04/15/13 at 1227, Maximum dose: 200 mcg/min Please hold for SBP < 125 and titrate to achieve SBP 130-140bpm., STAT 0130 (Rate/Dose Change - Provider: Dejah Ladd RN)0251 (Rate/Dose Verify - Provider: Dejah Ladd, FABIANA) nitroGLYcerin 50 mg in dextrose 5% 250 mL infusion (CANCELED) 0-200 mcg/min (rounded to 0-60 mL/hr), Intravenous, CONTINUOUS, Starting on 04/15/13 at 1245, Until Tue04/17/13 at 0558, Maximum dose: 200 mcg/min Please hold for SBP < 125 and titrate to achieve SBP 130-140bpm., Routine 1245 (Rate/Dose Change - Provider: Juliann Crystal RN)1545 (Rate/Dose Verify - Provider: Juliann Crystal RN) 1101 (Stopped - Provider: Jazmin Esparza RN)1105 (Restarted - Provider: Jazmin Esparza RN)1148 (Stopped - Provider: Jazmin Esparza, RN)1250 (Restarted - Provider: Cristobal Hui, FABIANA)1333 (New Bag - Provider: Cristobal Hui RN) sodium chloride 0.9% infusion (CANCELED) 100 mL/hr, Intravenous, CONTINUOUS, Starting on Tue04/15/13 at 1700, Until Tue04/17/13 at 1743 1601 (New Bag - Provider: Juliann Crystal RN) 0507 (Rate/Dose Change - Provider: Tegan August, FABIANA - Comment: verbal oprder per )0556 (Rate/Dose Change - Provider: Tegan August RN) sodium chloride 0.9% infusion (CANCELED) 100 mL/hr, Intravenous, CONTINUOUS, Starting on Tue04/16/13 at 0945, Until Tue04/16/13 at 1206, Cath (Day of Procedure) 0945 (Rate/Dose Verify - Provider: Rocio Garrison RN) sodium chloride 0.9% infusion () 100 mL/hr, Intravenous, CONTINUOUS, Starting on Tue04/16/13 at 1230, Until Tue04/16/13 at 2229 1230 (New Bag - Provider: Cristobal Hui, FABIANA) PRN Medication Order 04/15/2013 04/16/2013 04/17/2013 acetaminophen (TYLENOL) tablet 650 mg (CANCELED) 650 mg, Oral, EVERY 4 HOURS PRN, Starting on Tue04/15/13 at 0126, Until Tue04/17/13 at 1743, Pain, Headaches, Maximum dose of acetaminophen is 4000 mg from all sources in 24 hours., Routine 1249 (Given - Provider: Cristobal Hui RN - Comment: Back pain) bivalirudin (ANGIOMAX) 250 mg in sodium chloride 0.9% 50 mL infusion (CATTLE MANAGER) (CANCELED) CONTINUOUS PRN, Starting on Tue04/16/13 at 1054, Until Tue04/16/13 at 1203, Cath (Intra-Procedure), Routine 1054 (New Bag - Provider: Deloris Guerni RN)1149 (New Bag - Provider: Jazmin Esparza RN)1154 (Stopped - Provider: Jazmin Esparza RN) bivalirudin (ANGIOMAX) injection (CANCELED) ONCE PRN, Starting on Tue04/16/13 at 1053, Until Tue04/16/13 at 1203, Intra-Operative (Intra-Procedure), Routine 1053 (Given - Provider: Deloris Guerin RN) clopidogrel (PLAVIX) tablet (CANCELED) ONCE PRN, Starting on Tue04/16/13 at 1051, Until Tue04/16/13 at 1203, Intra-Operative (Intra-Procedure), Routine 1051 (Given - Provider: Monty Lopez) fentaNYL 50mcg/mL injection (CANCELED) ONCE PRN, Starting on Tue04/16/13 at 1103, Until Tue04/16/13 at 1203, Pain, Intra-Operative (Intra-Procedure), Routine 1103 (Given - Provider: Monty Lopez)1129 (Given - Provider: Monty Lopez)1149 (Given - Provider: Monty Lopez) fentaNYL 50mcg/mL injection () 25 mcg, Intravenous, Administer over 4 Hours, EVERY 15 MIN PRN, Starting on Tue04/16/13 at 1233, Until Tue04/16/13 at 1944, Pain, For sheath removal, May repeat once, while in Cath Recovery Unit, Cath (Recovery-Hospital Unit), Routine 1330 (Given - Provider: Cristobal Hui RN - Comment: for back and for femoral sheath removal)1344 (Given - Provider: Cristobal Hui RN)1349 (Given - Provider: López Rice RN)1353 (Given - Provider: López Rice RN)1405 (Given - Provider: López Rice RN)1450 (Given - Provider: Cristobal Hui, FABIANA)1544 (Given - Provider: Rocio Garrison RN) heparin (porcine) injection 2,000-4,000 Units (CANCELED) 2,000-4,000 Units, Intravenous, BOLUS PER HEPARIN PROTOCOL, Starting on 04/14/13 at 2346, Until 04/16/13 at 1854, Per Protocol, Adjust to dosing chart, Patient Weight 110-114 kg PTT less than 60 seconds - 4,000 units PTT 60-79 seconds - 2,000 units PTT 80-114 seconds - no bolus , Routine 0010 (Given - Provider: Donna Saunders RN) hydrALAZINE (APRESOLINE) injection 10 mg (CANCELED) 10 mg, Intravenous, EVERY 4 HOURS PRN, Starting on Tue04/15/13 at 0507, Until Tue04/17/13 at 1743, High Blood Pressure, Please administer for SBP > 160mmHg. 1321 (Given - Provider: Cristobal Hui, FABIANA) hydroCODone-acetaminophen (VICODIN) 5-500 mg per tablet 1 tablet (CANCELED) 1 tablet, Oral, EVERY 4 HOURS PRN, Starting on Tue04/15/13 at 0126, Until Tue04/17/13 at 1743, Pain, Maximum dose of acetaminophen is 4000 mg from all sources in 24 hours., Routine 0240 (Given - Provider: Dejah Ladd RN)1030 (Given - Provider: Juliann Crystal, FABIANA)1443 (Given - Provider: Juliann Crystal RN) 2047 (Given - Provider: Katerine Urban RN) 0937 (Given - Provider: Margarita Sharma, FABIANA)1400 (Given - Provider: Margarita Sharma, FABIANA) iohexol (OMNIPAQUE) 350 mg iodine/mL injection (CANCELED) ONCE PRN, Starting on Tue04/16/13 at 1202, Until Tue04/16/13 at 1203, Per Protocol, Cath (Intra-Procedure), Routine 1202 (Given - Provider: Sergo Goins MD) lidocaine (XYLOCAINE) 10 mg/mL (1 %) injection (CANCELED) ONCE PRN, Starting on Tue04/16/13 at 1030, Until Tue04/16/13 at 1203, Cath (Intra-Procedure), Routine 1030 (Given - Provider: Adal Hamilton MD - Comment: Right Fem Artery area) midazolam (VERSED) injection 1 mg () 1 mg, Intravenous, Administer over 4 Hours, EVERY 30 MIN PRN, Starting on Tue04/16/13 at 1233, Until Tue04/16/13 at 1851, Anxiety, For sheath removal, May repeat once while in Cath Recovery Unit, Cath (Recovery-Hospital Unit), Routine 1345 (Given - Provider: Cristobal Hui, FABIANA)1451 (Given - Provider: Cristobal Hui, FABIANA) nitroGLYcerin (NITROSTAT) SL tablet 0.4 mg 0.4 mg, Sublingual, EVERY 5 MIN PRN, Starting on Tue04/15/13 at 0126, Until Tue04/17/13 at 1743, Chest pain, May repeat every 5 minutes for a total of three doses. Notify provider if chest pain not relieved with nitroglycerin. Do not administer nitroglycerin if the patinet has received or taken phosphodiesterase (PDE-5) inhibitors such as sildenafil, tadalafil or vardenafil within the last 24 to 72 hours., Routine 1226 (Given - Provider: Juliann Crystal RN) nitroGLYCerin 100 mcg/mL intracoronary dilution (CANCELED) ONCE PRN, Starting on Tue04/16/13 at 1108, Until Tue04/16/13 at 1203, Cath (Intra-Procedure), Routine 1108 (Given - Provider: Sergo Goins MD)1119 (Given - Provider: Sergo Goins MD)1149 (Given - Provider: Sergo Goins MD) perflutren protein-A microspheres (OPTISON) 0.22 mg/mL injection 1.5 mL (COMPLETED) 1.5 mL, Intravenous, ONCE PRN, 1 dose, Starting on Tue04/16/13 at 1012, Until Tue04/16/13 at 0800, for enhancement of sub-optimal echo images, Echo Lab (Intra-Procedure), Routine 0800 (Given - Provider: Dereck Diaz) traMADol (ULTRAM) tablet 50 mg (CANCELED) 50 mg, Oral, EVERY 6 HOURS PRN, Starting on 04/15/13 at 0126, Until Tu04/17/13 at 1743, Pain, Routine 0616 (Given - Provider: Dejah Ladd, FABIANA)1545 (Given - Provider: Juliann Crystal, FABIANA) 1000 (Given - Provider: Rocio Garrison, RN)1820 (Given - Provider: Rocio Garrison, RN) 1148 (Given - Provider: Margarita Sharma RN) Linked Groups Order Group 1: nicotine (NICODERM CQ) 14 mg/24 hr patch 14 mg (CANCELED)Jump to med 14 mg, Transdermal, Administer over 24 Hours, DAILY, First dose on Tue04/15/13 at 0900, Until Discontinued, Routine And nicotine (NICODERM CQ) patch REMOVAL (CANCELED)Jump to med Transdermal, DAILY, First dose on Tue04/16/13 at 0900, Until Discontinued, Remove Nicotine Patch documented in this encounter Care Teams Telemarketing Fundraiser Relationship Specialty Start Date End Date Adriana Perla APRN [address] [place] [address] PCP - General 06/16/10 06/27/18 documented as of this encounter
--- OUTSIDE RECORDS SUMMARY | 2024-02-22 00:57 | XMS_ITS | Encounter Summary ---
Author Organization [facility] [place] [address] Care Team Providers Care Stave Machine Tender Name Role Phone Adriana Perla APRN Primary Care Provider [phone] Reason for Visit * Reason Comments Chest Pain Encounter Details Date Type Department Care Team (Late st Contact Info) Description 04/16/2013 10:00 AM EDT - 04/16/2013 11:00 AM [place] [phone] Sergo Goins MD [facility] [place] [address] CARDIAC CATHETERIZATION Social History Tobacco Use Types Packs/Day Years [...] Tue 2, 2PM Dr. Stephanie Osman [address] [place] [address] May 10, 8:10AM [facility] Your Primary Care Provider: ADRIANA PERLA APRN [address] / [place] [address] For questions regarding this document or issues relating to this hospitalization on the Medical Service, please contact your inpatient physician through the [facility] Sample Examiner . Issues afterhours and on weekends will be handled by the Hospitalist staff on-call. * Attachments The following attachments cannot be sent through Care Everywhere. * PERCUTANEOUS CORONARY INTERVENTION: WHAT TO EXPECT AT HOME (GREEK) documented in this encounter Medications at Time [...] vitamins (B COMPLEX-VITAMIN B12) tablet 09/23/2010 11/19/2016 enkczugkflxo-csam-dzv erals (COMPLETE MULTIVITAMIN) Tab tablet 1 Tablet(s), PO, Once daily 09/23/2010 11/19/2016 calcium citrate-vitamin D (CITRACAL+D) 315-200 mg-unit per tablet 2 Tablet(s), PO, Twice daily 09/23/2010 11/19/2016 ergocalciferol (VITAMIN D) 50,000 unit capsule [id number], PO, TWICE a week 09/23/2010 11/19/2016 documented as of this encounter Progress Notes * Margarita Sharma RN - 04/17/2013 3:37 PM EDT 1540- Discharge orders available. Pt and personal care worker given discharge AVS, discharge summary, percutaneous intervention care instructions, medication information, diabetes tool kit and nutrition information via verbal and written communication. Pt and personal care worker expressed a correct verbal understanding of discharge instructions, percutaneous intervention care instructions and medication information. Pt disconnected from telemetry and IVs removed. Pt [facility] via wheelchair and discharged for home [...] a CHO level 2 diet. Recommend adding [facility] (Heart Healthy) to current diet order. 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 Recommend a daily multivitamin with minerals, 500 mcg of vitamin B12 daily, and 600 mg of calcium twice daily. Pt reports taking these vitamins consistently at home. P: 1. Recommend adding [facility] (Heart Healthy) to current diet order. 2. [...] inpatient PT at this time. Andres Good, MARYLIN Beeper# [id number] * Freddy Mejias MD - 04/17/2013 5:23 [...] Comments: Recent Labs Basename 04/17/13 0351 04/16/13 0407 04/14/13 2110 WBC 10.8* 9.0 12.5* HGB 9.8* [...] Somers DO (PGY-1) Internal Medicine Resident Pager [phone] STAFF ADDENDUM Patient interviewed and examined. Medical [...] Will follow up tomorrow as appropriate. Andres Good, PT Beeper# [id number] * Jeremy Radford OT - 04/16/2013 10:24 AM EDT Chart reviewed and orders received. Patient at label pinker this morning. RN reports patient mobilizingwell and able to perform own ADLS. We will monitor and f/u as needed for evaluation. Jeremy Radford OTR/L [id number] * Freddy Mejias MD - 04/16/2013 6:10 [...] or lesions. Lab Comments: Recent Labs Basename 04/16/137 04/14/132109 WBC 9.0 12.5* HGB 11.3 13.3 HCT 37.2 41.6 PLATELET 218 265 Recent Labs Basename 04/16/13406 INR 1.0 Recent Labs Basename 04/16/137 04/14/132109 NA 141 138 K 4.1 4.2 CL [...] q8h - Lisinopril 20mg daily - TTE Lazaro, post-catheterization # Hypertension - Nitroglycerin drip - [...] Somers DO (PGY-1) Internal Medicine Resident Pager [phone] STAFF ADDENDUM Patient interviewed and examined. Medical [...] rales on exam. Telemetry benign. Agree with givin IV furosemide. Can safely proceed with catheterization [...] tablets and recommended she follow-up with a Aircraft Fuselage Framer. This appointment was scheduled for 04/19 (5 [...] with 325mg of Aspirin in route to [facility]. While in the ED, she had another [...] PTSD Hospitalizations in 1993 for suicide attempt, 2004 for severe anxiety Schizophrenia - Polysubstance abuse [...] 05/12/00 Open cholecystectomy ~1991 CHIP/BSO 1985 in [place] for ovarian cyst Complete dental extractions 1998 [...] Social history: , no children. Lives in [place]. 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 Smoking: Active smoker, 2ppd Alcohol: Prior alcoholic, [...] story is co ncerning for a Type-I NH. I suspect she will need a Cardiac catheterization on Tuesday AM. I will Plavix load and start double-product [...] FULL CODE (DPOA: Rae, elder sister) Kasia Cruz, PGY-2 Pager [phone] STAFF ADDENDUM Patient interviewed and examined. Medical [...] pulses. Neuro grossly intact. Labs as per eD. I recommended proceeding directly to a diagnostic [...] 04/18/2013 1:04 PM EDTAssociated Order(s): SCAN DOC: EQUINE SCIENCE INSTRUCTOR * Provider, Scanning - 04/16/2013 4:59 PM EDTAssociated Order(s): CARDIAC CATHETERIZATION * Provider, Scanning - 04/16/2013 11:59 AM EDTAssociated Order(s): CARDIAC CATHETERIZATION documented in this encounter ED Notes * Donna Saunders RN - 04/15/2013 12:19 AM EDT Awaiting transfer to [facility]. * Donna Saunders RN - [...] has arragned for her to see a accountant systems this coming . She comes in tonight [...] Score for ED patients with possible ACS, ([facility] 2009February 03:182(10):6206-60): 1) Age ? 65 years? +1 2) [...] of 19%. Score: 14-day triple point (mortality, NH, revascularization) 0 1.8% 1 4.0% 2 8.3% [...] to their service. Tavon Reed MD 04/14/13 6124 Recent Results (from the past 24 hour(s)) [...] URINE DIPSTICK Component Value Range POC Sp [place] 1.010 1.002 - 1.030 POC pH, UA [...] Internal Controls Acceptable Tavon Reed MD 04/14/13 7815 Tavon Reed MD 04/14/13 4554 * Vandana Marte RN - 04/14/2013 9:32 [...] tablets and recommended she follow-up with a Aircraft Fuselage Framer. This appointment was scheduled for 04/19 (5 [...] with 325mg of Aspirin in route to [facility]. While in the ED, she had another [...] 60% stenosis of proximal2 LAD and received LAF x2 to these areas. LVEDP 25. Pt [...] complex vitamins (B COMPLEX-VITAMIN B12) tablet Oral kywqrrxvbmxw-psjq-svljhxbz (COMPLETE MULTIVITAMIN) Tab tablet 1 Tablet(s), PO, Once daily, Oral calcium citrate-vitamin D (CITRACAL+D) 315-200 mg-unit per tablet 2 Tablet(s), PO, Twice daily, Oral ergocalciferol (VITAMIN D) 50,000 unit capsule [id number], PO, TWICE a week, Oral varenicline (CHANTIX) [...] Tue 2, 2PM Dr. Stephanie Osman [address] [place] [address] ThMay 10, 8:10AM [facility] Your Primary Care Provider: ADRIANA PERLA APRN [address] [place] [address] For questions regarding this document or issues relating to this hospitalization on the Medical Service, please contact your inpatient physician through the [facility] Sample Examiner . Issues afterhours and on weekends will be handled by the Hospitalist staff on-call. General Instructions None Future Appointments and Orders Future Appointments: Provider: Department: Dept Phone: Center: 05/03/2013 1:30 PM [facility] Cardiac Re[facility] Prog Non-Invasive Cardiology Lab [phone] None 05/10/2013 8:10 AM Freddy Mejias MD Cardiology [phone] [facility] Joint Appt Nurse One Cardiology Intake, RN [facility] 4A [phone] [facility] Future Orders Please Complete By Expires Referral to Cardiac Rehab [[id number] Custom] Process Instructions: If no progress note charted, please enter Clinical details in comments. Scheduling Instructions: Comments: Cardiac rehab at [facility] Questions: Responses: Reason for referral Angina, PCI Provider Contact Information: ADRIANA PERLA, CHILD ADOLESCENT PSYCHIATRIST [address] [facility] [address] Discharge References/Attachments: Discharge References/Attachments PERCUTANEOUS CORONARY INTERVENTION: WHAT TO EXPECT AT HOME (GREEK) Signed: Jefe Sharma, PGY-3 DATE: 04/19/13 * Consult Note - Kenna Solorio, FABIANA - 04/17/2013 11:00 AM EDT Cardiac Rehabilitation [...] parameters for home exercise. Phase II Referral: [facility], intake 05/03 at 1:30 Activity Summary: By [...] Breath sounds are distant, but clear. On quality assurance monitor chassis she is in NSR no ectopy. Friend [...] Procedure Name Priority Date/Time Associated Diagnosis Comments EQUINE SCIENCE INSTRUCTOR SCAN 04/18/2013 1:04 PM EDT CARDIAC CATHETERIZATION [...] Routine 04/16/2013 1:16 PM EDT CARDIAC ENZYMES ([facility]) STAT 04/16/2013 12:00 PM EDT ECHOCARDIOGRAM TRANSTHORACIC [...] Routine 04/15/2013 11:27 AM EDT CARDIAC ENZYMES ([facility]) Routine 04/15/2013 10:28 AM EDT APTT STAT 04/15/2013 10:28 AM EDT XR CHEST PA AND LATERAL Routine 04/15/20 13 8:31 AM EDT POCT GLUCOSE Routine 04/15/2013 7:59 AM EDT EKG 12-LEAD Routine 04/15/2013 7:17 AM EDT Unstable angina XR CHEST PA AND LATERAL STAT 04/15/20 13 5:07 AM EDT CARDIAC ENZYMES ([facility]) Routine 04/15/2013 4:54 AM EDT TSH Routine [...] STAT 04/14/2013 9:10 PM EDT CARDIAC ENZYMES ([facility]) STAT 04/14/2013 9:10 PM EDT CREATININE STAT 04/14/2013 9:10 PM EDT CBC (WITH DIFF) STAT 04/14/2013 9:10 PM EDT BUN STAT 04/14/2013 9:10 PM EDT GLUCOSE, RANDOM STAT 04/14/2013 9:10 PM EDT ELECTROLYTES PANEL STAT 04/14/2013 9: 10 PM EDT EKG 12-LEAD STAT 04/14/2013 8:57 PM EDT documented in this encounter Results * SCAN DOC: EQUINE SCIENCE INSTRUCTOR (04/18/2013 1:04 PM EDT) Anatomical Region Laterality [...] POC Glucose 138 60 - 199 mg/dL [facility] Comment: Supplemental ranges: <110 mg/dL before meals <200 mg/dL all other times of the day Blood specimen (specimen) 04/17/2013 11:50 AM EDT 04/17/2013 11:50 AM EDT Freddy Mejias MD POINT OF CARE TEST O ALYSON Performing Organization Address [facility] Co de Phone Number [facility] * (ABNORMAL) Hemoglobin (04/17/2013 11:13 AM EDT) Hemoglobin 10.2(L) 11.2 - 15.7 gm/dL [facility] Blood specimen (specimen) 04/17/2013 11:13 AM EDT 04/17/2013 11:27 AM EDT Narrative Resulting Agency Comment Spec In Lab Freddy Mejias MD HEMATOLOGY ORDERABLE S Performing Organization Address [facility] Co de Phone Number [facility] * POCT Glucose (04/17/2013 7:37 AM EDT) POC Glucose 95 60 - 199 mg/dL [facility] Comment: Supplemental ranges: <110 mg/dL before meals <200 mg/dL all other times of the day Blood specimen (specimen) 04/17/2013 7:37 AM EDT 04/17/2013 7:37 AM EDT Freddy Mejias MD POINT OF CARE TEST O RDERABLES Performing Organization Address [facility] de Phone Number [facility] * EKG 12 Lead (04/17/2013 7:21 AM EDT) Ventricular rate 49 BPM MUSE SYSTEM Atrial Rate 49 BPM MUSE SYSTEM P-R Interval 150 ms MUSE SYSTEM QRS Duration 88 ms MUSE SYSTEM Q-T Interval 460 ms MUSE SYSTEM QTC Calculated (Bezet) 415 ms MUSE SYSTEM Calculated P [place] 41 degrees MUSE SYSTEM Calculated R [place] 63 degrees MUSE SYSTEM Calculated T [place] 139 degrees MUSE SYSTEM INTERPRETATION Marked sinus [...] Reed MD ECG ORDERABLES Performing Organization Address [facility] de Phone Number MUSE SYSTEM * (ABNORMAL) Differential, Automated (04/17/2013 3:51 AM EDT) Neutrophils % 75.0(H) 34.0 - 71.0 % [...] EDT Tavon Reed MD HEMATOLOGY ORDERABLE S [facility] * (ABNORMAL) Basic Metabolic Panel (non-fasting) (04/17/2013 3:51 AM EDT) Glucose Lvl 102 60 - 199 mg/dL [facility] Comment:Diabetes: >=200 mg/d L plus symptoms BUN 9 8 - 18 mg/dL [facility] Creatinine 0.61(L) 0.70 - 1.20 mg/dL [facility] Comment: Please note that the pediatric reference intervals supplied above were not validated at [facility]. Results from pediatric patients should be interpreted [...] In Lab Tavon Reed MD CHEMISTRY ORDERABLES [facility] * (ABNORMAL) CBC (with Diff) (04/17/2013 3:51 [...] MILLENNIUM MPV 10.6 9.0 - 12.0 fL [facility] Blood specimen (specimen) 04/17/2013 3:51 AM EDT 04/17/2013 5:10 AM EDT Narrative Resulting Agency Comment Spec In Lab Tavon Reed MD HEMATOLOGY ORDERABLE S Performing Organization Address [facility] de Phone Number [facility] * POCT Glucose (04/16/2013 8:26 PM EDT) POC Glucose 130 60 - 199 mg/dL [facility] Comment: Supplemental ranges: <110 mg/dL before meals <200 mg/dL all other times of the day Blood specimen (specimen) 04/16/2013 8:26 PM EDT 04/16/2013 8:26 PM EDT Freddy Mejias MD POINT OF CARE TEST O RDERABLES Performing Organization Address [facility] de Phone Number [facility] * POCT Glucose (04/16/2013 4:35 PM EDT) POC Glucose 101 60 - 199 mg/dL [facility] Comment: Supplemental ranges: <110 mg/dL before meals <200 mg/dL all other times of the day Blood specimen (specimen) 04/16/2013 4:35 PM EDT 04/16/2013 4:35 PM EDT Freddy Mejias MD POINT OF CARE TEST O RDERAKE Performing Organization Address [facility] de Phone Number [facility] * EKG 12 Lead (04/16/2013 1:16 PM EDT) Ventricular rate 55 BPM MUSE SYSTEM Atrial Rate 55 BPM MUSE SYSTEM QRS Duration 76 ms MUSE SYSTEM Q-T Interval 458 ms MUSE SYSTEM QTC Calculated (Bezet) 438 ms MUSE SYSTEM Calculated P [place] 91 degrees MUSE SYSTEM Calculated R [place] 61 degrees MUSE SYSTEM Calculated T [place] 96 degrees MUSE SYSTEM INTERPRETATION Sinus bradycardia ST & T wave abnormality, consider anterolateral ischemia Abnormal ECG When compared with ECG of 15-APR-2013 12:49, T wave inversion less evident in Lateral leads Confirmed by MD WILBER, SERGO ([id number]) on 04/17/2013 9:58:29 PM MUSE SYSTEM 04/16/2013 1:16 PM EDT 04/17/2013 9:58 PM EDT Sergo Goins MD ECG ORDERABLES Performing Organization Address [facility] Co de Phone Number MUSE SYSTEM * Cardiac Enzymes (04/16/2013 12:00 PM EDT) Troponin-T <0.03 <=0.03 ng/mL [facility] Comment: 0.03 ng/mL: Represents the 99th percentile upper reference limit for normals. >0.03 ng/mL: Elevated cardiac troponin T level indicative of myocardial damage. Diagnosis of acute, evolving or recent NH requires a typical rise and gradual fall [...] consensus document of the Joint Society of Cardiology/[place] College of Cardiology Committee for the redefinition of myocardial infarction. Journal of the [place] College of Cardiology 2000; 36: 959-969] CK, Total 39 0 - 160 unit/L [facility] Blood specimen (specimen) 04/16/2013 12:00 PM EDT 04/16/2013 12:05 PM EDT Narrative Resulting Agency Comment Spec In Lab Freddy Mejias MD CHEMISTRY ORDERABLES Performing Organization Address [facility] Co de Phone Number [facility] * Echocardiogram Transthoracic(Leb) (04/16/2013 10:11 AM EDT) EF 60 [facility]ART[facility] SYSTEM Anatomical Region Laterality Modality Other 04/16/2013 Narrative 04/16/2013 10:37 AM EDT Procedure: ? Transthoracic Echocardiogram Patient: ? CARBINO JEANNIE L ?(Age): 1960(52) Med Rec#: ?[id number] ? Sex: ?F ? Site Loc: ?[facility] ? Ht / Wt: ??163(cm)/115(kg) Pt. Loc: ? Adult Floor ?BSA: ?2.28 Study Date: ?04/16/2013 ? Pt. Type: Inpatient Tape: ? Referring: Tavon Reed Metal Mixer: Dereck Diaz Diagnosis:CPT Code(s): ??Echo Full (11978), ??Spectral Doppler (73368), Color Doppler (50663), ??Optison (69449HL), ??Spectral Doppler (17703), Color Doppler (85042), ??Definity (62881WV), ??Echo Full (09351), Indication(s): ??Angina Rhythm: HR ?BP ?134/69 ?? [...] ? Mid-Inferior ?Normal ? Mid-Inferoseptal ?Normal ? [place]-Septal ? Normal ? [place]-Anterior ? Normal ? [place]-Lateral ?Normal ? [place]-Inferior ? Normal ? [place]-Tip ?Normal ? Chambers ?Value ?Units (Range) ? [...] 04/16/2013 10:36:51 Images reviewed and interpretation verified [facility] Cardiac Ultrasound Laboratory Procedure Note Chalino Gomez MD - 04/16/2013 Procedure: Transthoracic Echocardiogram Patient: APOLINAR SHAY(Age): 1960(52) Med Rec#: [id number] Sex: F Site Loc: [facility] Ht / Wt: 163(cm)/115(kg) Pt. Loc: Adult Floor BSA: 2.28 Study Date: 04/16/2013 Pt. Type: Inpatient Tape: Referring: Tavon Reed Metal Mixer: Dereck Diaz Diagnosis:CPT Code(s): Echo Full (30348), Spectral Doppler (83316), Color Doppler (21174), Optison (54665VG), Spectral Doppler (12682), Color Doppler (16183), Definity (59807NJ), Echo Full (93366), Indication(s): Angina Rhythm: HR BP 134/69 SUMMARY: [...] Normal Mid-Posterolateral Normal Mid-Inferior Normal Mid-Inferoseptal Normal [place]-Septal Normal [place]-Anterior Normal [place]-Lateral Normal [place]-Inferior Normal [place]-Tip Normal Chambers Value Units (Range) IVSd 2D [...] 04/16/2013 10:36:51 Images reviewed and interpretation verified [facility] Cardiac Ultrasound Laboratory Tavon Reed MD ECHO ORDERABLES * POCT Glucose (04/16/2013 7:42 AM EDT) POC Glucose 103 60 - 199 mg/dL [facility] Comment: Supplemental ranges: <110 mg/dL before meals <200 mg/dL all other times of the day Blood specimen (specimen) 04/16/2013 7:42 AM EDT 04/16/2013 7:42 AM EDT Freddy Mejias MD POINT OF CARE TEST O RDERABLES [facility] * (ABNORMAL) Differential, Automated (04/16/2013 4:07 AM [...] EDT Tavon Reed MD HEMATOLOGY ORDERABLE S [facility] * (ABNORMAL) Basic Metabolic Panel (non-fasting) (04/16/2013 4:07 AM EDT) Glucose Lvl 97 60 - 199 mg/dL [facility] Comment:Diabetes: >=200 mg/d L plus symptoms BUN 12 8 - 18 mg/dL [facility] Creatinine 0.64(L) 0.70 - 1.20 mg/dL [facility] Comment: Please note that the pediatric reference intervals supplied above were not validated at [facility]. Results from pediatric patients should be interpreted [...] Reed MD CHEMISTRY ORDERABLES Performing Organization Address [facility] Co de Phone Number [facility] * (ABNORMAL) CBC (with Diff) (04/16/2013 4:07 [...] MD HEMATOLOGY ORDERABLE S Performing Organization Address City/[facility] Co de Phone Number [facility] * (ABNORMAL) APTT (04/16/2013 4:07 AM EDT) PTT 116(H) 25 - [address] [facility] MILL[facility]NIUM Comment: Recommended therapeutic PTT range for full dose unfractionated heparin is 80-114 seconds. Blood specimen (specimen) 04/16/2013 4:07 AM EDT 04/16/2013 4:18 AM EDT Narrative Resulting Agency Comment Spec In Lab Freddy Mejias MD HEMATOLOGY ORDERABLE S Performing Organization Address [facility] Co de Phone Number [facility] * Prothrombin Time (04/16/2013 4:07 AM EDT) PT 13.2 12.0 - 15.0 sec [facility] Comment: [facility] Transfusion Committee Guidelines: INR less than 2.0, PTT less than OR equal to 43.5 seconds, or Fibrinogen greater than or equal to 100 mg/dl indicate adequate procoagulant activity for hemostasis in patients without underlying bleeding disorders. INR 1.0 0.9 - 1.1 [facility] Blood specimen (specimen) 04/16/2013 4:07 AM EDT 04/16/2013 4:18 AM EDT Narrative Resulting Agency Comment Spec In Lab Freddy Mejias MD HEMATOLOGY ORDERABLE S Performing Organization Address [facility] de Phone Number [facility] * (ABNORMAL) APTT (04/15/2013 10:00 PM EDT) PTT 111(H) 25 - 35 sec [facility] Comment: Recommended therapeutic PTT range for full dose unfractionated heparin is 80-114 seconds. Blood specimen (specimen) 04/15/2013 10:00 PM EDT 04/15/2013 11:27 PM EDT Narrative Resulting Agency Comment Spec In Lab Freddy Mejias MD HEMATOLOGY ORDERABLE S Performing Organization Address [facility] Co de Phone Number [facility] [employer] [facility] [employer] [facility] * POCT Glucose (04/15/2013 8:50 PM EDT) Pathologist [facility] POC Glucose 127 60 - 199 mg/dL [facility] Comment: Supplemental ranges: <110 mg/dL before meals <200 mg/dL all other times of the day Blood specimen (specimen) 04/15/2013 8:50 PM EDT 04/15/2013 8:50 PM EDT Freddy Mejias MD POINT OF CARE TEST O RDERABLES Performing Organization Address [facility] de Phone Number [facility] * (ABNORMAL) APTT (04/15/2013 5:00 PM EDT) Pathologist [facility] PTT 108(H) 25 - 35 sec [facility] Comment: Recommended therapeutic PTT range for full dose unfractionated heparin is 80-114 seconds. Blood specimen (specimen) 04/15/2013 5:00 PM EDT 04/15/2013 11:16 PM EDT Narrative Resulting Agency Comment Spec In Lab Freddy Mejias MD HEMATOLOGY ORDERABLE S Performing Organization Address [facility] de Phone Number [facility] * POCT Glucose (04/15/2013 3:54 PM EDT) [facility] POC Glucose 133 60 - 199 mg/dL [facility] Comment: Supplemental ranges: <110 mg/dL before meals <200 mg/dL all other times of the day Blood specimen (specimen) 04/15/2013 3:54 PM EDT 04/15/2013 3:54 PM EDT Freddy Mejias MD POINT OF CARE TEST O RDERABLES Performing Organization Address [facility] de Phone Number [facility] * EKG 12 Lead (04/15/2013 12:49 PM EDT) Pathologist [facility] Ventricular rate 43 BPM MUSE SYSTEM Atrial Rate 43 BPM MUSE SYSTEM P-R Interval 156 ms MUSE SYSTEM QRS Duration 84 ms MUSE SYSTEM Q-T Interval 508 ms MUSE SYSTEM QTC Calculated (Bezet) 429 ms MUSE SYSTEM Calculated P [place] 42 degrees MUSE SYSTEM Calculated R [place] 36 degrees MUSE SYSTEM Calculated T [place] 146 degrees MUSE SYSTEM INTERPRETATION Marked sinus bradycardia ST & T wave abnormality, consider anterolateral ischemia Abnormal ECG When compared with ECG of 15-APR-2013 07:17, (unconfirmed) No significant change was found Confirmed by MD NGHIA, JENNY ([id number]) on 04/16/2013 5:25:05 PM MUSE SYSTEM 04/15/2013 12:4 9 PM EDT 04/16/2013 5:25 PM EDT Tavon Reed MD ECG ORDERABLES MUSE SYSTEM * POCT Glucose (04/15/2013 11:27 AM EDT) [facility] POC Glucose 99 60 - 199 mg/dL [facility] Comment: Supplemental ranges: <110 mg/dL before meals <200 mg/dL all other times of the day Blood specimen (specimen) 04/15/2013 11:27 AM EDT 04/15/2013 11:27 AM EDT Freddy Mejias MD POINT OF CARE TEST O RDERABLES Performing Organization Address [facility] Co de Phone Number [facility] * Cardiac Enzymes (04/15/2013 10:28 AM EDT) [facility] Troponin-T <0.03 <=0.03 ng/mL [facility] Comment: 0.03 ng/mL: Represents the 99th percentile upper reference limit for normals. >0.03 ng/mL: Elevated cardiac troponin T level indicative of myocardial damage. Diagnosis of acute, evolving or recent NH requires a typical rise and gradual fall [...] consensus document of the Joint Society of Cardiology/[place] College of Cardiology Committee for the redefinition of myocardial infarction. Journal of the [place] College of Cardiology 2000; 36: 959-969] CK, Total 47 0 - 160 unit/L [facility] Blood specimen (specimen) 04/15/2013 10:28 AM EDT 04/15/2013 10:37 AM EDT Narrative Resulting Agency Comment Spec In Lab Tavon Reed MD CHEMISTRY ORDERABLES Performing Organization Address [facility]/ZIP Co de Phone Number [facility] * (ABNORMAL) APTT (04/15/2013 10:28 AM EDT) PTT 66(H) 25 - 35 sec [facility] Comment: Recommended therapeutic PTT range for full dose unfractionated heparin is 80-114 seconds. Blood specimen (specimen) 04/15/2013 10:28 AM EDT 04/15/2013 10:37 AM EDT Narrative Resulting Agency Comment Spec In Lab Freddy Mejias MD HEMATOLOGY ORDERABLE S Performing Organization Address [facility] Co de Phone Number [facility] [employer] * XR chest routine PA & lateral [...] POC Glucose 108 60 - 199 mg/dL [facility] Comment: Supplemental ranges: <110 mg/dL before meals <200 mg/dL all other times of the day Blood specimen (specimen) 04/15/2013 7:59 AM EDT 04/15/2013 7:59 AM EDT Freddy Mejias MD POINT OF CARE TEST O RDERABLES Performing Organization Address [facility] Co de Phone Number [facility] * EKG 12 Lead (04/15/2013 7:17 AM EDT) Ventricular rate 57 BPM MUSE SYSTEM Atrial Rate 57 BPM MUSE SYSTEM P-R Interval 148 ms MUSE SYSTEM QRS Duration 82 ms MUSE SYSTEM Q-T Interval 474 ms MUSE SYSTEM QTC Calculated (Bezet) 461 ms MUSE SYSTEM Calculated P [place] 41 degrees MUSE SYSTEM Calculated R [place] 54 degrees MUSE SYSTEM Calculated T [place] 123 degrees MUSE SYSTEM INTERPRETATION Sinus bradycardia with sinus arrhythmia T wave abnormality, consider anterolateral ischemia Abnormal ECG When compared with ECG of 14-APR-2013 22:59, (unconfirmed) Inverted T waves have replaced nonspecific T wave abnormality in Lateral leads Confirmed by MD NGHIA, JENNY ([id number]) on 04/16/2013 12:55:43 PM MUSE SYSTEM 04/15/2013 7:17 AM EDT 04/16/2013 12:55 PM EDT Sergo Goisn MD ECG ORDERABLES Performing Organization Address [facility] Co de Phone Number MUSE SYSTEM * XR chest routine PA [...] 4:54 AM EDT) Troponin-T <0.03 <=0.03 ng/mL [email or web address] Comment: 0.03 ng/mL: Represents the 99th percentile upper reference limit for normals. >0.03 ng/mL: Elevated cardiac troponin T level indicative of myocardial damage. Diagnosis of acute, evolving or recent NH requires a typical rise and gradual fall [...] consensus document of the Joint Society of Cardiology/[place] College of Cardiology Committee for the redefinition of myocardial infarction. Journal of the [place] College of Cardiology 2000; 36: 959-969] CK, Total 36 0 - 160 unit/L [email or web address] Blood specimen (specimen) 04/15/2013 4:54 AM EDT 04/15/2013 5:33 AM EDT Narrative Resulting Agency Comment Spec In Lab Tavon Reed MD CHEMISTRY ORDERABLES [facility] * Hemoglobin A1c (04/15/2013 4:54 AM EDT) Hemoglobin A1C 6.1 4.3 - 6.1 % [facility] Comment: The [place] Diabetes Association (ADA) has stated that HbA1c [...] 2013:36;suppl 1:S11-S66. Est Avg Gluc 128 mg/dL [facility] Comment: eAG equivalents for HbA1c percentages: HbA1c(%) [...] into estimated average glucose values. ??Diabetes Care 2008:31(8):9765-5402. Blood specimen (specimen) 04/15/2013 4:54 AM EDT 04/15/2013 5:33 AM EDT Narrative Resulting Agency Comment Spec In Lab Tavon Reed MD CHEMISTRY ORDERABLES [facility] * (ABNORMAL) Lipid panel (fasting) (04/15/2013 4:54 AM EDT) Chol, Total 159 <=199 mg/dL [facility] Comment: Recommendations of the NCEP Adult Treatment Panel for the following risk cutoff thresholds for the [place] population: Desirable: <200 mg/dL Borderline High: 200-239 mg/dL High: > or = 240 mg/dL Triglycerides 138 <=149 mg/dL [facility] Comment: Reference Range: Normal triglycerides: ??<150 mg/dL Borderline high: ??150-199 mg/dL High: ??200-499 mg/dL Very high: ??>yw=976 mg/dL KIP 2001; 285(19):3607-3449 HDL 30(L) >=40 mg/dL [facility] Comment: Reference range: ??Low HDL: ?? < 40 mg/dL ??Normal: ?40-60 mg/dL ??Desirable: > 60 mg/dL KIP 2001; 285(19):4761-5680 LDL Cholesterol 101(H) <=99 mg/dL [facility] Comment: Reference range: ?? Optimal: ?<100 mg/dL ?? Near Optimal/Above Optimal: ?? 100-129 mg/dL ?? Borderline high: ?130-159 mg/dL ?? High: ? 160-189 mg/dL ?? Very high: ?>je=295 mg/dL KIP 2001: 285(19):5333-3320 Chol/HDL Ratio 5.3 ratio NICANORNE R MILLENNIUM Comment: A Cholesterol to HDL ratio below 4:1 is desirable. ??Studies suggest that increased CAD risk occurs at ratios above 5 for females and above 6 for men. ? [place] Heart Association ??(http://www.americanheart.org) ? Sadie Int Med, 1994; 121:641 ? AM J Med, 1998; 105(1A):48S Blood specimen (specimen) 04/15/2013 4:54 AM EDT 04/15/2013 5:33 AM EDT Narrative Resulting Agency Comment Spec In Lab Tavon Reed MD CHEMISTRY ORDERABLES Performing Organization Address [facility] de Phone Number CERKELSEY CORTEZENNIUM * (ABNORMAL) Hepatic Function Panel (04/15/2013 4:54 AM EDT) Total Protein 6.3(L) 6.4 - 8.3 gm/dL CERNER MILLENNIUM Albumin 3.8 3.2 - 5.2 gm/dL CERNER [...] Reed MD CHEMISTRY ORDERABLES Performing Organization Address [facility] Co de Phone Number CERKELSEY CORTEZENNIUM * TSH (04/15/2013 4:54 AM EDT) TSH 1.73 0.27 - 4.20 mcIU/mL CERKELSEY MONTANOIUM Blood specimen (specimen) 04/15/2013 4:54 AM EDT 04/15/2013 5:33 AM EDT Narrative Resulting Agency Comment Spec In Lab Tavon Reed MD CHEMISTRY ORDERABLES Performing Organization Address [facility] Co de Phone Number [facility] * Phosphorus (04/15/2013 4:54 AM EDT) Phosphorus 3.5 2.5 - 4.5 mg/dL CERKELSEY MONTANOIUM Blood specimen (specimen) 04/15/2013 4:54 AM EDT 04/15/2013 5:33 AM EDT Narrative Resulting Agency Comment Spec In Lab Tavon Reed MD CHEMISTRY ORDERABLES Performing Organization Address [facility] Phone Number [facility] * Magnesium (04/15/2013 4:54 AM EDT) Magnesium 0.84 0.69 - 1.07 mmol/L [facility]ANOIUM Blood specimen (specimen) 04/15/2013 4:54 AM EDT 04/15/2013 5:33 AM EDT Narrative Resulting Agency Comment Spec In Lab Tavon Reed MD CHEMISTRY ORDERABLES Performing Organization Address [facility] de Phone Number [facility] * Calcium (04/15/2013 4:54 AM EDT) Calcium 8.9 8.5 - 10.5 mg/dL [facility] Blood specimen (specimen) 04/15/2013 4:54 AM EDT 04/15/2013 5:33 AM EDT Narrative Resulting Agency Comment Spec In Lab Tavon Reed MD CHEMISTRY ORDERABLES Performing Organization Address City/[facility] Co de Phone Number [facility] * (ABNORMAL) APTT (04/15/2013 4:53 AM EDT) PTT 62(H) 25 - 35 sec CERNER MILLENNIUM Comment: Recommended therapeutic PTT range for full dose unfractionated heparin is 80-114 seconds. Blood specimen (specimen) 04/15/2013 4:53 AM EDT 04/15/2013 5:33 AM EDT Narrative Resulting Agency Comment Spec In Lab Tavon Reed MD HEMATOLOGY ORDERABLE S Performing Organization Address [facility] de Phone Number [facility] * Prothrombin Time (04/15/2013 4:53 AM EDT) PT 12.9 12.0 - 15.0 sec CERNER MILLENNIUM Comment: [facility] Transfusion Committee Guidelines: INR less than 2.0, PTT less than OR equal to 43.5 seconds, or Fibrinogen greater than or equal to 100 mg/dl indicate adequate procoagulant activity for hemostasis in patients without underlying bleeding disorders. INR 0.9 0.9 - 1.1 CERNER MILLENNIUM Blood specimen (specimen) 04/15/2013 4:53 AM EDT 04/15/2013 5:33 AM EDT Narrative Resulting Agency Comment Spec In Lab Tavon Reed MD HEMATOLOGY ORDERABLE S Performing Organization Address [facility] Phone Number [facility] * Prothrombin Time (04/15/2013 12:45 AM EDT) PT 13.7 12.0 - 15.0 sec CERNER MILLENNIUM Comment: [facility] Transfusion Committee Guidelines: INR less than 2.0, [...] MD HEMATOLOGY ORDERABLE S Performing Organization Address [facility] Co de Phone Number [facility] * APTT (04/14/2013 11:55 PM EDT) PTT 28 25 - [address] [facility] Comment: Recommended therapeutic PTT range for full dose unfractionated heparin is 80-114 seconds. Blood specimen (specimen) 04/14/2013 11:55 PM EDT 04/15/2013 12:07 AM EDT Narrative Resulting Agency Comment Spec In Lab Tavon Reed MD HEMATOLOGY ORDERABLE S Performing Organization Address [facility] de Phone Number [facility] * EKG 12 Lead (04/14/2013 10:59 PM EDT) Ventricular rate 65 BPM MUSE SYSTEM Atrial Rate 65 BPM MUSE SYSTEM P-R Interval 134 ms MUSE SYSTEM QRS Duration 86 ms MUSE SYSTEM Q-T Interval 424 ms MUSE SYSTEM QTC Calculated (Bezet) 440 ms MUSE SYSTEM Calculated P [place] 26 degrees MUSE SYSTEM Calculated R [place] 17 degrees MUSE SYSTEM Calculated T [place] 36 degrees MUSE SYSTEM INTERPRETATION Normal sinus rhythm with sinus arrhythmia T wave abnormality, consider anterior ischemia Abnormal ECG When compared with ECG of 14-APR-2013 22:57, (unconfirmed) No significant change was found Confirmed by MD NGHIA, JENNY ([id number]) on 04/16/2013 11:34:39 AM MUSE SYSTEM 04/14/2013 10:5 9 PM EDT 04/16/2013 11:34 AM EDT Tavon Reed MD ECG ORDERABLES Performing Organization Address [facility] Co de Phone Number MUSE SYSTEM * EKG 12 Lead (04/14/2013 10:57 PM EDT) Ventricular rate 56 BPM MUSE SYSTEM Atrial Rate 56 BPM MUSE SYSTEM P-R Interval 144 ms MUSE SYSTEM QRS Duration 84 ms MUSE SYSTEM Q-T Interval 430 ms MUSE SYSTEM QTC Calculated (Bezet) 414 ms MUSE SYSTEM Calculated P [place] 25 degrees MUSE SYSTEM Calculated R [place] 22 degrees MUSE SYSTEM Calculated T [place] 41 degrees MUSE SYSTEM INTERPRETATION Sinus bradycardia with Sinus arrhythmia T wave abnormality, consider anterolateral ischemia Abnormal ECG Confirmed by MD AGRAWAL MARK ([id number]) on 04/16/2013 11:34:11 AM MUSE SYSTEM 04/14/2013 10:5 7 PM EDT 04/16/2013 11:34 AM EDT Tavon Reed MD ECG ORDERABLES Performing Organization Address [facility] Co de Phone Number MUSE SYSTEM * EKG 12 Lead (04/14/2013 10:56 PM EDT) Ventricular rate 53 BPM MUSE SYSTEM Atrial Rate 53 BPM MUSE SYSTEM P-R Interval 142 ms MUSE SYSTEM QRS Duration 74 ms MUSE SYSTEM Q-T Interval 420 ms MUSE SYSTEM QTC Calculated (Bezet) 394 ms MUSE SYSTEM Calculated P [place] 32 degrees MUSE SYSTEM Calculated R [place] 22 degrees MUSE SYSTEM Calculated T [place] 39 degrees MUSE SYSTEM INTERPRETATION Sinus bradycardia Sinus arrhythmia T wave abnormality, consider anterolateral ischemia Abnormal ECG Confirmed by MD AGRAWAL MARK ([id number]) on 04/16/2013 11:33:23 AM MUSE SYSTEM 04/14/2013 10:5 6 PM EDT 04/16/2013 11:33 AM EDT Freddy Mejias MD ECG ORDERABLES Performing Organization Address [facility] de Phone Number MUSE SYSTEM * POCT urine (04/14/2013 10:41 PM EDT) [facility] POC Urine HCG Negative Negative - Negative POC Control Internal Controls Acceptable Tavon Reed MD POINT OF CARE TEST O RDERABLES * POCT urine dipstick (04/14/2013 10:41 PM EDT) Pathologist [facility] POC Sp [place] 1.010 1.002 - 1.030 POC pH, UA [...] Differential, Automated (04/14/2013 9:10 PM EDT) Pathologist [facility] Neutrophils % 59.6 34.0 - 71.0 % [...] x10(3)/mc L CERNER MILLENNIUM Blood specimen (specimen) 04/14/2013 9:10 PM EDT 04/14/2013 9:15 PM EDT Tavon Reed MD HEMATOLOGY ORDERABLE S [facility]ER DIEGOENNIUM * Gold Tube HOLD (04/14/2013 9:10 PM EDT) Gold Hold Sample in lab. CERNER MILLENNIUM Blood specimen (specimen) 04/14/2013 9:10 PM EDT 04/14/2013 9:15 PM EDT Tavon Reed MD CHEMISTRY ORDERABLES [facility] * Blue Tube HOLD (04/14/2013 9:10 PM EDT) Blue Hold Sample in lab. CERKELSEY CORTEZENNIUM Blood specimen (specimen) 04/14/2013 9:10 PM EDT 04/14/2013 9:15 PM EDT Tavon Reed MD HEMATOLOGY ORDERABLE S Performing Organization Address [place]/[facility]/ZIP Co de Phone Number [facility] * (ABNORMAL) CBC (with Diff) (04/14/2013 9:10 PM EDT) WBC 12.5(H) 4.0 - 10.0 x10(3)/mcL CERNER MILLENNIUM RBC 4.58 3.93 - 5.22 x10(6)/mcL CERNER MILLENNIUM Hemoglobin 13.3 11.2 - 15.7 gm/dL [...] MD HEMATOLOGY ORDERABLE S Performing Organization Address [facility] Co de Phone Number [facility] * Cardiac Enzymes (04/14/2013 9:10 PM EDT) Troponin-T <0.03 <=0.03 ng/mL [facility] Comment: 0.03 ng/mL: Represents the 99th percentile upper reference limit for normals. >0.03 ng/mL: Elevated cardiac troponin T level indicative of myocardial damage. Diagnosis of acute, evolving or recent NH requires a typical rise and gradual fall [...] consensus document of the Joint Society of Cardiology/[place] College of Cardiology Committee for the redefinition of myocardial infarction. Journal of the [place] College of Cardiology 2000; 36: 959-969] CK, Total 49 0 - 160 unit/L [facility] Blood specimen (specimen) 04/14/2013 9:10 PM EDT 04/14/2013 9:14 PM EDT Narrative Resulting Agency Comment Spec In Lab Tavon Reed MD CHEMISTRY ORDERABLES Performing Organization Address [facility] de Phone Number [facility] * Glucose, random (04/14/2013 9:10 PM EDT) Glucose Lvl 114 60 - 199 mg/dL [facility] Comment:Diabetes: >=200 mg/d L plus symptoms Blood specimen (specimen) 04/14/2013 9:10 PM EDT 04/14/2013 9:14 PM EDT Narrative Resulting Agency Comment Spec In Lab Tavon Reed MD CHEMISTRY ORDERABLES Performing Organization Address [facility] Co de Phone Number CERNER MILLENNIUM * Creatinine (04/14/2013 9:10 PM EDT) Creatinine 0.78 0.70 - 1.20 mg/dL [facility] Comment: Please note that the pediatric reference intervals supplied above were not validated at [place]. Results from pediatric patients should be interpreted in conjunction to the patient's age, height and muscle mass. Estimated GFR >60 >=60 [facility] Comment: This estimated GFR (eGFR) value was [...] Reed MD CHEMISTRY ORDERABLES Performing Organization Address [facility] de Phone Number [facility] * BUN (04/14/2013 9:10 PM EDT) BUN 16 8 - 18 mg/dL [facility] Blood specimen (specimen) 04/14/2013 9:10 PM EDT 04/14/2013 9:14 PM EDT Narrative Resulting Agency Comment Spec In Lab Tavon Reed MD CHEMISTRY ORDERABLES Performing Organization Address [facility] Co de Phone Number [facility] * Electrolytes panel (04/14/2013 9:10 PM EDT) Sodium 138 135 - 145 mmol/L [facility] Potassium 4.2 3.5 - 5.0 mmol/L [facility] Comment: Please note: ??Patients with WBC >100,000 [...] In Lab Tavon Reed MD CHEMISTRY ORDERABLES [facility] [employer] [facility] * EKG 12 Lead (04/14/2013 8:57 PM EDT) Ventricular rate 67 BPM MUSE SYSTEM Atrial Rate 67 BPM MUSE SYSTEM P-R Interval 140 ms MUSE SYSTEM QRS Duration 72 ms MUSE SYSTEM Q-T Interval 372 ms MUSE SYSTEM QTC Calculated (Bezet) 393 ms MUSE SYSTEM Calculated P [place] 44 degrees MUSE SYSTEM Calculated R [place] 36 degrees MUSE SYSTEM Calculated T [place] 48 degrees MUSE SYSTEM INTERPRETATION Sinus rhythm [...] SYSTEM documented in this encounter Visit Diagnoses Not on filedocumented in this encounter Administered Medications Inactive Administered Medications - up to 3 most recent administrations Medication Order MAR Action Action Date Dose Rate Site bivalirudin (ANGIOMAX) 250 mg in sodium chloride 0.9% 50 mL infusion (DIRECTOR OF CATH LAB) CONTINUOUS PRN, Starting on 04/16/13 at 1054, Until Tue04/16/13 at 1203, Cath (Intra-Procedure), Routine New Bag 04/16/2013 11:49 AM EDT New Bag 04/16/2013 10:54 AM EDT 201.3 mg/hr 40.3 mL/hr bivalirudin (ANGIOMAX) injection ONCE PRN, Starting on Tue04/16/13 at 1053, Until Tue04/16/13 at 1203, Intra-Operative (Intra-Procedure), Routine Given 04/16/2013 10:53 AM EDT 86.3 mg clopidogrel (PLAVIX) tablet ONCE PRN, Starting on Tue04/16/13 at 1051, Until Tue04/16/13 at 1203, Intra-Operative (Intra-Procedure), Routine Given 04/16/2013 10:51 AM EDT 300 mg fentaNYL 50mcg/mL injection ONCE PRN, Starting on Tue04/16/13 at 1103, Until Tue04/16/13 at 1203, Pain, Intra-Operative (Intra-Procedure), Routine Given 04/16/2013 11:49 AM E DT 25 mcg Given 04/16/2013 11:29 AM EDT 25 mcg Given 04/16/2013 11:03 AM EDT 25 mcg iohexol (OMNIPAQUE) 350 mg iodine/mL injection ONCE PRN, Starting on Tue04/16/13 at 1202, Until Tue04/16/13 at 1203, Per Protocol, Cath (Intra-Procedure), Routine Given 04/16/2013 12:02 PM EDT 250 mLs lidocaine (XYLOCAINE) 10 mg/mL (1 %) injection ONCE PRN, Starting on Tue04/16/13 at 1030, Until Tue04/16/13 at 1203, Cath (Intra-Procedure), Routine Given 04/16/2013 10:30 AM EDT 100 mg nitroGLYCerin 100 mcg/mL intracoronary dilution ONCE PRN, Starting on Tue04/16/13 at 1108, Until Tue04/16/13 at 1203, Cath (Intra-Procedure), Routine Given 04/16/2013 11:49 AM EDT 125 mcg Given 04/16/2013 11:19 AM EDT 100 mcg Given 04/16/2013 11:08 AM EDT 150 mcg documented in this encounter Active and Recently Administered Medications Times are shown in EDT. Scheduled Medication Order 04/15/2013 04/16/2013 04/17/2013 aspirin EC tablet 81 mg 81 mg, Oral, DAILY, First dose on 04/15/13 [...] 0926 (Given - Provider: Margarita Sharma RN) diaZEPam (VALIUM) tablet 5 mg (COMPLETED) 5 [...] 1031 (Given - Provider: Juliann Crystal RN) 2040 (Given - Provider: Katerine Urban, FABIANA) levothyroxine (SYNTHROID) tablet 50 mcg (CANCELED) 50 mcg, Oral, EVERY MORNING, First dose on 04/15/13 at 0600, Until Discontinued, Routine 0501 (Given - Provider: Dejah Ladd RN) 0600 (Given - Provider: Tegan August, FABIANA) 0555 (Given - Provider: Katerine Urban, FABIANA) lisinopril (PRINIVIL;ZESTRIL) tablet 15 mg (COMPLETED) 15 mg, Oral, ONCE, 1 dose, On 04/15/13 at 1245, Routine 1443 (Given - Provider: [...] 100, Routine 1031 (Given - Provider: Juliann Crystal, FABIANA) methocarbamol (ROBAXIN) tablet 500 mg (CANCELED) 500 [...] August RN) 0600 (Given - Provider: Tegan August, RN)1618 (Given - Provider: Rocio Garrison RN)2228 (Given - Provider: Katerine Urban RN) 0555 (Given - Provider: Katerine Urban, FABIANA)1432 (Given - Provider: Margarita Sharma RN) morphine 2 mg/mL carpuject 0.6 mg (COMPLETED) 0.6 mg (0.5 mg), Intravenous, ONCE, 1 dose, On 04/16/13 at 1615, Routine 1608 (Given - Provider: Rocio Garrison RN) nicotine (NICODERM CQ) 14 mg/24 hr patch 14 mg (CANCELED)(Linked Group 1) 14 mg, Transdermal, Administer over 24 Hours, DAILY, First dose on 04/15/13 at 0900, Until Discontinued, Routine 1059 (Given [...] 3 mg, Oral, NIGHTLY, First dose on 04/15/13 at 0145, Until Discontinued, Routine 0307 (Given - Provider: Dejah Ladd RN)2100 (Given by Other - Provider: Tegan August RN) 2100 (Given - Provider: Katerine Urban RN - Comment: pt request) QUEtiapine (SEROQUEL) tablet 25 mg (CANCELED) 25 mg, Oral, DAILY WITH LUNCH, First dose on Tue04/15/13 at 1200, Until Discontinued, Routine 1324 (Given [...] August RN) 2223 (Given - Provider: Katerine Urban, RN) sodium chloride 0.9 % flush 5 mL (CANCELED) 5 mL, Intravenous, EVERY 12 HOURS, First dose on 04/15/13 at 0145, Until Discontinued 0145 (Given - Provider: Dejah Ladd RN)1317 (Given - Provider: Juliann Crystal RN) 0145 (Given - Provider: Tegan August, FABIANA)1345 (Given - Provider: Rocio Garrison, RN) 0145 (Given - Provider: Katerine Urban, FABIANA)1300 (Given - Provider: Margarita Sharma, FABIANA) sodium chloride 0.9 % flush 5 mL (CANCELED) 5 mL, Intravenous, EVERY 12 HOURS, First dose on Tue04/16/13 at 0945, Until Discontinued, Cath (Day of Procedure), Routine 1000 (Given - Provider: Rocio Garrison, RN)2145 (Given - Provider: Katerine Urban RN) 0932 (Given - Provider: Margarita Sharma [...] CONTINUOUS, Starting on 04/15/13 at 0015, Until Tue04/16/13 at 1854, [...] 145 sec X 2 - call warehouse administrator See Bolus dosing guidance for aPTT values less than 80 seconds under PRN medications, Routine 0015 (New Bag - Provider: Donna Saunders RN)0554 (Rate/Dose Change - Provider: Dejah Ladd RN)1101 (Rate/Dose Change - Provider: Juliann Crystal RN)1545 [...] Ladd RN)0251 (Rate/Dose Verify - Provider: Dejah Ladd RN) nitroGLYcerin 50 mg in dextrose 5% 250 mL infusion (CANCELED) 0-200 mcg/min (rounded to 0-60 mL/hr), Intravenous, CONTINUOUS, Starting on 04/15/13 at 1245, Until 04/17/13 at 0558, Maximum dose: 200 mcg/min Please hold for SBP < 125 and titrate to achieve SBP 130-140bpm., Routine 1245 (Rate/Dose Change - Provider: Juliann Crystal RN)1545 (Rate/Dose Verify - Provider: Juliann Crystal RN) 1101 (Stopped - Provider: Jazmin Esparza RN)1105 (Restarted - Provider: Jazmin Esparza RN)1148 (Stopped - Provider: Jazmin Esparza RN)1250 (Restarted - Provider: Cristobal Cuellar, FABIANA)1333 (New Bag - Provider: Cristobal Cuellar RN) sodium chloride 0.9% infusion (CANCELED) 100 [...] 2229 1230 (New Bag - Provider: Cristobal Cuellar RN) PRN Medication Order 04/15/2013 04/16/2013 04/17/2013 acetaminophen (TYLENOL) tablet 650 mg (CANCELED) 650 mg, Oral, EVERY 4 HOURS PRN, Starting on Tue04/15/13 at 0126, Until Tue04/17/13 at 1743, Pain, Headaches, Maximum dose of acetaminophen is 4000 mg from all sources in 24 hours., Routine 1249 (Given - Provider: Cristobal Cuellar RN - Comment: Back pain) bivalirudin (ANGIOMAX) 250 mg in sodium chloride 0.9% 50 mL infusion (DIRECTOR OF CATH LAB) (CANCELED) CONTINUOUS PRN, Starting on Tue04/16/13 at 1054, Until Tue04/16/13 at 1203, Cath (Intra-Procedure), Routine 1054 (New Bag - Provider: Deloris Guerin RN)1149 (New Bag - Provider: Jazmin Esparza RN)1154 (Stopped - Provider: Jazmin Esparza RN) bivalirudin (ANGIOMAX) injection (CANCELED) ONCE PRN, Starting on Tue04/16/13 at 1053, Until Tue04/16/13 at 1203, Intra-Operative (Intra-Procedure), Routine 1053 (Given - Provider: Deloris Guerin, FABIANA) clopidogrel (PLAVIX) tablet (CANCELED) ONCE PRN, Starting [...] Unit), Routine 1330 (Given - Provider: Cristobal Cuellar RN - Comment: for back and for femoral sheath removal)1344 (Given - Provider: Cristobal Cuellar RN)1349 (Given - Provider: Cassidy Garcia RN)1353 (Given - Provider: Cassidy Garcia RN)1405 (Given - Provider: Cassidy Garcia RN)1450 (Given - Provider: Cristobal Cuellar RN)1544 (Given - Provider: Rocio Garrison RN) heparin (porcine) injection 2,000-4,000 Units (CANCELED) 2,000-4,000 Units, Intravenous, BOLUS PER HEPARIN PROTOCOL, Starting on 04/14/13 at 2346, Until Tue04/16/13 at 1854, Per Protocol, Adjust to dosing [...] > 160mmHg. 1321 (Given - Provider: Cristobal Cuellar RN) hydroCODone-acetaminophen (VICODIN) 5-500 mg per tablet 1 tablet (CANCELED) 1 tablet, Oral, EVERY 4 HOURS PRN, Starting on Tue04/15/13 at 0126, Until Tue04/17/13 at 1743, Pain, Maximum dose of acetaminophen is 4000 mg from all sources in 24 hours., Routine 0240 (Given - Provider: Dejah Ladd RN)1030 (Given - Provider: Juliann Crystal, RN)1443 (Given - Provider: Juliann Crystal, FABIANA) 2047 (Given - Provider: Katerine Urban, FABIANA) 0937 (Given - Provider: Margarita Sharma, RN)1400 (Given - Provider: Margarita Sharma, FABIANA) iohexol [...] Unit), Routine 1345 (Given - Provider: Cristobal Cuellar, FABIANA)1451 (Given - Provider: Cristobal Cuellar, FABIANA) nitroGLYcerin (NITROSTAT) SL tablet 0.4 mg [...] 0126, Until Tue04/17/13 at 1743, Pain, Routine 0616 (Given - Provider: Dejah Ladd RN)1545 (Given - Provider: Juliann Crystal RN) 1000 (Given - Provider: Rocio Garrison, FABIANA)1820 (Given - Provider: Rocio Garrison, FABIANA) 1148 (Given - Provider: Margarita Sharma RN) [...] Patch documented in this encounter Care Teams Stave Machine Tender Relationship Specialty Start Date End Date Adriana Perla APRN [address] [place] [address] PCP - General 06/16/10 06/27/18 documented as of this encounter
--- OUTSIDE RECORDS SUMMARY | 2024-02-22 00:57 | XMS_ITS | Encounter Summary ---
[place] [address] Care Team Providers Care Director Immunology Name Role Phone Aman Lawrence APRN Primary Care Provider [phone] Reason for Visit * Reason Onset Date Comments Other 06/01/2013 request alternat kayden medication Encounter Details Date Type Department Care Team (Late st Contact Info) Description 06/01/2013 Telephone [place] [id number] Sidra Diaz RN Other (request alternative medication) Social History Tobacco Use Types Packs/Day Years [...] Miscellaneous Notes * Telephone Encounter - Sidra Diaz RN - 06/01/2013 9:31 AM EST Pt requests an alternative reflux medication. She reports recently having a heart stent placed following angina and she was told to discontinue nexium as it interfers with the stent. She is post gastric bypass in 1999 and has been on nexium ever since with control of heartburn. She has been placed on pepcid 60mg and the heartburn has been severe. It prevents her from attending cardiac rehab. Her heartburn occurs upon awakening and when she is hungry. It is better after eating for 1/2 hour andthen a dull ache remains. She mentioned some discussion in the past of redo of the gastric bypass due to spots of leakage. Will discuss with Sidra Vallejo SUPERVISOR NUT PROCESSING documented in this encounter Plan of Treatment Not on file documented as of this encounter Visit Diagnoses Not on filedocumented in this encounter Care Teams Director Immunology Relationship Specialty Start Date End Date Aman Lawrence APRN [address] [place] [address] PCP - General 06/16/10 06/27/18 documented as of this encounter
--- OUTSIDE RECORDS SUMMARY | 2024-02-22 00:57 | XMS_ITS | Encounter Summary ---
[facility] [place] [address] Care Team Providers Care Thin Film Technician Name Role Phone Aman Lawrence APRN Primary Care Provider [phone] Reason for Visit * Reason Onset Date Comments Other 05/31/2013 tobacco cessatio n referral rec'd from Jorge Lopez. T/C to pt re: tobacco cessation resources. See documentation Encounter Details Date Type Department Care Team (Late st Contact Info) Description 05/31/2013 [place] [address] Indu Torres RN Other (tobacco cessation referral rec'd from Jorge Lopez. T/C to pt re: tobacco cessation resources. See documentation) Social History Tobacco Use Types Packs/Day Years [...] encounter Miscellaneous Notes * Telephone Encounter - Indu Torres RN - 05/31/2013 5:33 PM EST Tobacco treatment note: Tobacco cessation referral rec'd from Jorge Lopez, Cardiac Rehab T/c to Mrs Rico S: My and I have set a tentative quit smoking date for Jun 29. We smoke in the house and aregoing to try to smoke outside. We are using the electronic cigarette and have been able to cut down on the amount of cigarettes. Iquit for 1 day after I had my stents placed; but am finding it hard to quit. I can't take Chantix and we want to use the nicotine patch when we quit. I had been smoking 2 ppd. [facility] and would like to come to the [facility]. O/A: Positive recognition was given for planning to quit smoking. Mrs Rico has a high dependenceon nicotine. Reviewed the $ to be saved as she and her opt to stop smoking. Discussed the health benefits of her choosing to stop smoking specific to her. Discussed the 7 FDA approved smokingmedications and their effects. Discussed the facts that the electronic nicotine delivery devices are not approved by the FDA for the safety and efficacy for stopping smoking. Discussed how to use thenicotine patch, gum and nicotine lozenge. Discussed tobacco cessation resources that are available in her local area: [facility] is offering FreshStart Classes at the [facility] in [place], [place] [phone] and there is a one-on-one tobacco counseling program & free N[facility] at the [facility] on Tuesday's 9-3 pm. The [place] [facility] (6-348-GOBF-[phone] offers free telephonic tobacco counseling and free NRT to those whose prescription plans do not cover for the OTC medication. Discussed Reviewed the contents in the [facility] Tobacco cessation packet & D Tobacco treatment free clinic which is held on Tuesday and 9:30-11:30 in the [facility] on 4-H. Plan: Mrs. Rico plans to contact the [facility] for smoking cessation classes and one-on-one to get ready for her Quit date for Jun 29, 2013. She has all contact information and states she will call [facility] if she opts to schedule an appointment for 2012. Indu Torres RN, MS, C-TTS Beeper 0150 documented in this encounter Plan of Treatment Not on file documented as of this encounter Visit Diagnoses Not on filedocumented in this encounter Care Teams Thin Film Technician Relationship Specialty Start Date End Date Aman Lawrence APRN [address] [place] [address] PCP - General 06/16/10 06/27/18 documented as of this encounter
--- OUTSIDE RECORDS SUMMARY | 2024-02-22 00:58 | XMS_ITS | Encounter Summary ---
[facility] Organization [facility] Address [facility] [place] [address] Care Team Providers Care Clay Structure Builder And Servicer Name Role Phone Aman Lawrence APRN Primary Care Provider [phone] Reason for Visit * Reason Comments Chest Pain Encounter Details Date Type Department Care Team (Late st Contact Info) Description 04/09/2013 9:29 AM EDT - 04/09/2013 2:55 PM EDT [place] [id number] Tavon Reed MD [facility] [place] [address] Chest pain; Chest pain radiating to arm Discharge Disposition: Against Medical Advice Social History Tobacco Use Types Packs/Day Years [...] Sign Reading Time Taken Comments Blood Pressure 190/79 04/09/2013 2:15 PM EDT Pulse 59 04/09/2013 2:15 PM EDT Temperature 36.7 ??C (98.1 ??F) 04/09/2013 9:38 AM ED T Respiratory Rate 18 04/09/2013 2:15 PM EDT Oxygen Saturation 95% 04/09/2013 2:15 PM EDT Inhaled Oxygen Concentration - - Weight 113.9 kg (251 lb) 04/09/2013 9:38 AM EDT Height - - Body Mass Index 43.08 11/11/2010 8:29 AM EDT documented in this encounter Discharge Instructions * Discharge Instructions* Tavon Reed MD - 04/09/2013 2:49 PM EDT We do not know if you're chest pain is from your heart or a heart attack. As a result, we have recommended that you stay in the hospital. You're welcome to return at any time for worsening or persistent symptoms. Otherwise followup with your doctor tomorrow as planned documented in this encounter Medications at Time of Discharge Medication Sig Dispensed Refills Start Date End Date QUEtiapine (SEROQUEL) 25 mg tablet Take 25 mg by mouth as needed. 07/04/2013 QUEtiapine (SEROQUEL) 50 mg Tablet SR Take 50 mg by mouth daily. 05/10/2013 traMADol (ULTRAM) 50 mg tablet Take 50 mg by mouth every 6 hours as needed. 12/03/2015 esomeprazole (NEXIUM) 20 mg capsule Take 20 mg by mouth every morning (before breakfast). 04/17/2013 methocarbamol (ROBAXIN) 500 mg tablet Take 500 mg by mouth 4 times daily. 02/07/2019 traZODone (DESYREL) 50 mg tablet Take 50 mg by mouth nightly. 05/10/2013 Calcium 500 mg Tab Take by mouth daily. 01/18/2011 1 hydroCODone-acetaminop hen (VICODIN) 5-500 mg per tablet Take 1 tablet by mouth as needed. For flare up pain only 01/18/2011 02/22/2014 tetracycline (ACHROMYCIN;SUMYCIN) 250 mg capsule Take 250 mg by mouth nightly. 01/18/2011 05/10/2013 varenicline (CHANTIX) 0.5 mg tablet Take 0.5 mg by mouth 2 times daily. 07/04/2013 albuterol (PROVENTIL) 5 mg/mL nebulizer solution Take 2.5 mg by nebulization every 6 hours as needed. 05/10/2013 fluticasone-salmeterol (ADVAIR DISKUS) 500-50 mcg/dose diskus inhaler 1 Disk(s), Inh, Twice daily 09/23/2010 06/01/2019 levothyroxine (SYNTHROID) 50 mcg tablet 50MCG, PO, Once daily 09/23/20102018 prazosin (MINIPRESS) 1 mg capsule 3M Capsule(s), PO, QHS 09/23/2010 05/10/2013 lamoTRIgine (LAMICTAL) 150 mg tablet 25M Tablet(s), PO, Once daily 09/23/2010 05/10/2013 b complex vitamins (B COMPLEX-VITAMIN B12) tablet 09/23/2010 11/19/2016 ypwhijsovydj-gbpc-vsfp rals (COMPLETE MULTIVITAMIN) Tab tablet 1 Tablet(s), PO, Once daily 09/23/2010 11/19/2016 calcium citrate-vitamin D (CITRACAL+D) 315-200 mg-unit per tablet 2 Tablet(s), PO, Twice daily 09/23/2010 11/19/2016 ergocalciferol (VITAMIN D) 50,000 unit capsule [id number], PO, TWICE a week 09/23/2010 11/19/2016 documented as of this encounter ED Notes * Abby Antonio RN - 04/09/2013 2:50 PM EDT Pt wants to leave AMA. Dr. Reed called to BS. Dr. Reed speaking to pt extensively regarding risks of leaving AMA. Pt verbalized good understanding and cont to want to leave AMA. AMA form signed by pt. Pt left AMA. Ambulatory from ED w/o difficulty. Accompanied by visitor. * Abby Antonio RN - 04/09/2013 2:22 PM EDT Pt ambulatory to BR w/o difficulty. Cont to deny CP or SOB. Skin remains warm, pink, and dry. Awaiting 2nd Troponin results. * Abby Antonio RN - 04/09/2013 1:09 PM EDT Bedside ECHO in progress. * Abby Antonio RN - 04/09/2013 1:07 PM EDT Pt wishes to leave AMA. Dr. Reed updated. Pt agrees to speak to Dr. Reed regarding status and ECHO ordered. * Abby Antonio RN - 04/09/2013 12:00 PM EDT Patient is resting comfortably; CP free. No complaints at this time. Awaiting dispo decision. * Abby Antonio RN - 04/09/2013 11:20 AM EDT Pt reports CP free. * Abby Antonio RN - 04/09/2013 11:10 AM EDT Reports CP as 1/10. NTG SL 1 spray given. * Abby Antonio RN - 04/09/2013 11:05 AM EDT AAOx3. Resp even-unlabored. Chest CTA w/BBS. CM shows SB w/o ectopy. Heart sounds audible/strong/regular. Pt hypertensive; not followed by PCP; MD aware. Pt rates mid-sternal chest pressure 1/10 at this time. Denies jaw pain, left arm pain, or nausea. Skin warm, pink, and dry. Abd round/soft/ND. Ptreports recent swelling in bilateral feet. Bilateral feet with 2+ generalized edema. * Earlene Galloway RN - 04/09/2013 10:55 AM EDT Pt sitting up in bed A/ox3, skin intact Missing all front teeth, is not wearing dentures C/o chest pain and dizziness, 11/01 No obvious distress, -n/v,- no other associating symptoms, Pt placed on compliance monitor, EKG done, iv est, labs drawn, Pt Reported a decrease in pain post nitro Placed pt on o2 per cardiac best practice * Tavon Reed MD - 04/09/2013 10:28 AM EDT Chief Complaint Patient presents with ??? Chest Pain Female with a history of hypertension diabetes who presents with chest pain. Symptoms started a week ago and she describes lower sternal/epigastric pain that radiates to her left arm. She says it's brought on by every episode of walking at about a quarter mile point but she's also had some episodesat rest. Prior to one week ago, with the exception of occasional heartburn symptoms, she's had no similar symptoms. She denies shortness of breath and sometimes become diaphoretic. She's not clear whether this is associated nausea. She has a family history of CAD prior to age 55. She came in by private: Currently reports intermittent abdominal pain but now the current chest pain. She does not take aspirin nor did she this morning. Patient is a 52 y.o. female presenting with chest pain. Chest Pain She came to the ER via personal transport. The current episode started 5 to 7 days ago. The problemoccurs frequently. The problem has been unchanged. The pain is present in the substernal region. The pain is mild. The quality of the pain is described as pressure-like and burning. Associated symptoms include arm pain and nausea. Pertinent negatives include no leg swelling, no vomiting or no weakness. Her past [...] of breath. Cardiovascular: Positive for chest pain. Negative for leg swelling. Gastrointestinal: Positive for nausea. Negative for vomiting. Genitourinary: Negative for dysuria. Musculoskeletal: Negative for myalgias and arthralgias. Skin: Negative for rash. Neurological: Negative for weakness. Hematological: Does not bruise/bleed easily. Physical Exam Constitutional: She is oriented to person, place, and time. She appears well- developed and well-nourished. HENT: Head: Normocephalic and atraumatic. Eyes: Conjunctivae normal are normal. No scleral icterus. Neck: Neck supple. No JVD present. Cardiovascular: Normal rate and regular rhythm. Pulmonary/Chest: Effort normal and breath sounds normal. Abdominal: Soft. There is tenderness. Musculoskeletal: She exhibits no edema and no tenderness. Neurological: She is alert and oriented to person, place, and time. She has normal strength. Skin: Skin is warm and dry. She has mild epigastric tenderness that she feels is near baseline Procedures MDM Her EKG is that it shows sinus bradycardia rate of 53 with flipped T.'s in her anterior leads that is unchanged from prior Recent Results (from the past 24 hour(s)) CBC (WITH DIFF) Component Value Range WBC 9.0 4.0 - 10.0 x10(3)/mcL RBC 4.50 3.93 - 5.22 x10(6)/mcL Hemoglobin 12.7 11.2 - 15.7 gm/dL Hematocrit 41.0 34.0 - 45.0 % MCV 91.1 79.0 - 94.0 fL MCH 28.2 26.6 - 32.2 pg MCHC 31.0 (*) 32.0 - 36.5 gm/dL Platelets 251 145 - 370 x10(3)/mcL RDWSD 51.6 (*) 35.0 - 46.0 fL RDWCV 15.4 (*) 10.9 - 14.4 % MPV 10.3 9.0 - 12.0 fL ELECTROLYTES PANEL Component Value Range Sodium 138 135 - 145 mmol/L Potassium 4.4 3.5 - 5.0 mmol/L Chloride 101 98 - 107 mmol/L CO2 25 22 - 31 mmol/L Anion Gap 12 5 - 15 mmol/L BUN Component Value Range BUN 16 8 - 18 mg/dL CREATININE Component Value Range Creatinine 0.75 0.70 - 1.20 mg/dL Estimated GFR >60 >=60 GLUCOSE, RANDOM Component Value Range Glucose Lvl 86 60 - 199 mg/dL TROPONIN T Component Value Range Troponin-T <0.03 <=0.03 ng/mL DIFFERENTIAL, AUTOMATED Component Value Range Neutrophils % 59.6 34.0 - 71.0 % Neutr Abs (ANC) 5.35 1.50 - 6.30 x10(3)/mcL Lymphocytes % 31.4 19.0 - 53.0 % Lymphocytes Abs 2.8 1.0 - 3.6 x10(3)/mcL Monocytes % 7.4 4.0 - 13.0 % Monocyte Abs 0.7 0.2 - 1.0 x10(3)/mcL Eosinophils % 1.0 0.0 - 7.0 % Eosinophils Abs 0.1 0.0 - 0.5 x10(3)/mcL Basophils % 0.4 0.0 - 2.0 % Basophils Abs 0.0 0.0 - 0.2 x10(3)/mcL Immature Gran % 0.20 0.00 - 0.66 % Fartun Gran Abs 0.02 0.00 - 0.05 x10(3)/mcL RAPID QUALITATIVE DRUG SCREEN, URINE ([facility]) Component Value Range MAR[place] Marijuana Metabolites Scr None Detected None Detected [place] Phencyclidine Scr None Detected None Detected [place] Cocaine Metabolites Scr None Detected None Detected [place] Methamphetamines Scr None Detected None Detected [place] Opiates Scr Presumptive Pos (*) None Detected [place] Amphetamines Scr None Detected None Detected [place] Benzodiazepines Scr None Detected None Detected [place] Tricyclics Scr None Detected None Detected [place] Methadone Scr None Detected None Detected [place] Barbiturates Scr None Detected None Detected [place] Oxycodone Src None Detected None Detected [place] Propoxyphene Scr None Detected None Detected [place] Buprenorphine Scr None Detected None Detected TROPONIN T Component Value Range Troponin-T <0.03 <=0.03 ng/mL Mode of hypertension and diabetes who presents with chest pain that is often exertional and radiates to her left arm. Certainly concern that this could represent an acute coronary syndrome. Initial troponin negative. Aspirin and nitrates administered. Cardiology saw the patient in the emergency department and recommended admission and the patient refused. He ordered an echo with results pending. The patient is requesting discharge AGAINST MEDICAL ADVICE. I talked with her about the risks and benefits of admission versus discharge and that the risks include having acute coronary syndrome, arrhythmia and . She appears to have decisional capacity and elects to leave. She is concerned about her who has schizophrenia. She will follow up with her primary care physician tomorrow Mari notified she can return at any time for further evaluation and treatment. Tavon Reed MD 04/09/13 1734 documented in this encounter Miscellaneous Notes * Miscellaneous - Provider, Scanning - 04/09/2013 1:03 PM EDT * ED Triage - Leelee Schumacher RN - 04/09/2013 9:38 AM EDT Chest x 1 week intermittently. severe on Tuesday. Has radiation to L arm. documented in this encounter Plan of Treatment Not on file documented as of this encounter Procedures Procedure Name Priority Date/Time Associated Diagnosis Comments ECHOCARDIOGRAM TRANSTHORACIC Routine 04/09/2013 2:35 PM EDT Chest pain EKG 12-LEAD STAT 04/09/2013 2:24 PM EDT TROPONIN STAT 04/09/2013 2:00 PM EDT RAPID DRUG SCREEN W/O CONFIRMATION, URINE STAT 04/09/2013 11:50 AM EDT XR CHEST PA AND LATERAL STAT 04/09/20 11:08 AM EDT DIFFERENTIAL, AUTOMATED STAT 04/09/20 13 10:44 AM EDT CREATININE Routine 04/09/2013 10:44 AM EDT CBC (WITH DIFF) STAT 04/09/2013 10:44 AM EDT BUN STAT 04/09/2013 10:44 AM EDT TROPONIN STAT 04/09/2013 10:44 AM EDT GLUCOSE, RANDOM STAT 04/09/2013 10:44 AM EDT ELECTROLYTES PANEL STAT 04/09/2013 10 :44 AM EDT EKG 12-LEAD STAT 04/09/2013 9:42 AM EDT documented in this encounter Results * Echocardiogram Transthoracic(Leb) (04/09/2013 2:35 PM EDT) EF 60 HEARTLAB SYSTEM Anatomical Region Laterality Modality Other 04/09/2013 Narrative 04/09/2013 3:20 PM EDT Procedure: ? Transthoracic Echocardiogram Patient: ? APOLINAR RUSSELL L ?(Age): 1960(52) Med Rec#: ?[id number] ? Sex: ?F ? Site Loc: ?[facility] ? Ht / Wt: ??163(cm)/108(kg) Pt. Loc: ? ED ? BSA: ?2.21 Study Date: ?04/09/2013 ? Pt. Type: Outpatient Tape: ? Referring: Sergo Ortiz ([id number]) Electric [employer] Cart Repairers: Remy Campos Interpreting Fellow: Adal Esqueda ([id number]) Diagnosis:CPT Code(s): ??Spectral Doppler (49456), ??Color Doppler (53457), ??Definity (00458GV), ??Echo Full (43010), Indication(s): ??Chest Pain Rhythm: Bradycardia HR ?BP ?186/86 ?? SUMMARY: 1. Definity contrast (one 1.5 ml vial)was [...] normal in size.Right ventricular wall thickness is normal.Right ventricular global systolic function is normal.Pulmonary artery hypertension could not be assessed due to inadequate tricuspid regurgitation jet. 4. There is no hemodynamically significant valve disease. 5. See remainder of report for additional findings. FINDINGS: Study Quality ?Technically limited Left Ventricle ?The left ventricle is not well visualized. ?The left ventricle is probably normal in size. ?Left ventricular wall thickness is normal. ?There is normal global left ventricular systolic function. ??Ejection fraction is estimated to be 60%. ?There are no left ventricular segmental wall motion abnormalities. ?Doppler assessment is consistent with normal left sided filling pressure. Left Atrium ?The left atrium is mildly dilated. Right Ventricle ?The right ventricle is not well visualized. ?The right ventricle is normal in size. ?Right ventricular wall thickness is normal. ?Right ventricular global systolic function is normal. ?Pulmonary artery hypertension could not be assessed due to inadequate tricuspid regurgitation jet. Right Atrium ?The right atrium is mildly dilated. Aortic Valve ?The aortic valve is trileaflet. The leaflets are thin with normal excursion. There is no aortic stenosis or regurgitation present. Mitral Valve ?The mitral valve appears normal in structure and function. ?There is no evidence of mitral regurgitation. Tricuspid Valve ?The tricuspid valve appears normal in structure and function. ?There is trace tricuspid regurgitation present. Pulmonic Valve ?The pulmonic valve appears normal in structure and function. Pericardium ?The pericardium appears normal and there is no evidence of a pericardial effusion. Aorta ?The aortic root is normal in size. ?The ascending aorta is normal in size. Pulmonary Artery ?The main pulmonary artery appears normal. Venous ?The inferior vena cava appears normal in size. ?There is a greater than 50% respiratory change in the inferior vena cava dimension. Misc ?There is no hemodynamically significant valve disease. ?See remainder of report for additional findings. ?Two-dimensional echo, spectral Doppler and color Doppler performed. ?Definity contrast (one 1.5 ml vial)was used to enhance endocardial definition. Excess contrast was discarded. Wall Motion: Segment Name ?Rest ? Base-Anteroseptal ?? Normal ? Base-Anterior ? Normal ? Base-Anterolateral ??Normal ? Base-Posterolateral Normal ? Base-Inferior ? Normal ? Base-Inferoseptal ?? Normal ? Mid-Anteroseptal ?Normal ? Mid-Anterior ?Normal ? Mid-Anterolateral ?? Normal ? Mid-Posterolateral ??Normal ? Mid-Inferior ?Normal ? Mid-Inferoseptal ?Normal ? [place]-Septal ? Normal ? [place]-Anterior ? Normal ? [place]-Lateral ?Normal ? [place]-Inferior ? Normal ? [place]-Tip ?Normal ? Chambers ?Value ?Units (Range) ? LA area ? 24 ? cm2 (<21) ? RA area ? 19 ? cm2 (<18) ? Ao root ? 2.9 ?cm (2.1 to 3.6) ? Asc Ao ?2.8 ?cm (2 to 3.5) ? Mitral Valve ?Value ?Units (Range) ? E peak ?0.82 ? m/sec ? E/A ratio ? 1.1 ?ratio ? MVDT ?268 ?msec ? E1 ?0.11 ? m/sec ? E/E1 ?7 ?ratio ? This report has been electronically signed by: Anthony Leary MD ? 04/09/2013 15:20:08 Images reviewed and interpretation verified [facility] Cardiac Ultrasound Laboratory Procedure Note Anthony Leary MD - 04/09/2013 Procedure: Transthoracic Echocardiogram Patient: APOLINAR Lawson DOB(Age): 1960(52) Med Rec#: [id number] Sex: F Site Loc: [facility] Ht / Wt: 163(cm)/108(kg) Pt. Loc: ED BSA: 2.21 Study Date: 04/09/2013 Pt. Type: Outpatient Tape: Referring: Sergo Ortiz ([id number]) [employer] Repairers: Remy Campos Interpreting Fellow: Adal Esqueda ([id number]) Diagnosis:CPT Code(s): Spectral Doppler (13051), Color Doppler (70212), Definity (15405XE), Echo Full (26352), Indication(s): Chest Pain Rhythm: Bradycardia HR BP 186/86 SUMMARY: 1. Definity contrast (one 1.5 ml vial)was [...] normal in size.Right ventricular wall thickness is normal.Right ventricular global systolic function is normal.Pulmonary artery hypertension could not be assessed due to inadequate tricuspid regurgitation jet. 4. There is no hemodynamically significant valve disease. 5. See remainder of report for additional findings. FINDINGS: Study Quality Technically limited Left Ventricle The left ventricle is not well visualized. The left ventricle is probably normal in size. Left ventricular wall thickness is normal. There is normal global left ventricular systolic function. Ejection fraction is estimated to be 60%. There are no left ventricular segmental wall motion abnormalities. Doppler assessment is consistent with normal left sided filling pressure. Left Atrium The left atrium is mildly dilated. Right Ventricle The right ventricle is not well visualized. The right ventricle is normal in size. Right ventricular wall thickness is normal. Right ventricular global systolic function is normal. Pulmonary artery hypertension could not be assessed due to inadequate tricuspid regurgitation jet. Right Atrium The right atrium is mildly dilated. Aortic Valve The aortic valve is trileaflet. The leaflets are thin with normal excursion. There is no aortic stenosis or regurgitation present. Mitral Valve The mitral valve appears normal in structure and function. There is no evidence of mitral regurgitation. Tricuspid Valve The tricuspid valve appears normal in structure and function. There is trace tricuspid regurgitation present. Pulmonic Valve The pulmonic valve appears normal in structure and function. Pericardium The pericardium appears normal and there is no evidence of a pericardial effusion. Aorta The aortic root is normal in size. The ascending aorta is normal in size. Pulmonary Artery The main pulmonary artery appears normal. Venous The inferior vena cava appears normal in size. There is a greater than 50% respiratory change in the inferior vena cava dimension. Misc There is no hemodynamically significant valve disease. See remainder of report for additional findings. Two-dimensional echo, spectral Doppler and color Doppler performed. Definity contrast (one 1.5 ml vial)was used to enhance endocardial definition. Excess contrast was discarded. Wall Motion: Segment Name Rest Base-Anteroseptal Normal Base-Anterior Normal Base-Anterolateral Normal Base-Posterolateral Normal Base-Inferior Normal Base-Inferoseptal Normal Mid-Anteroseptal Normal Mid-Anterior Normal Mid-Anterolateral Normal Mid-Posterolateral Normal Mid-Inferior Normal Mid-Inferoseptal Normal [place]-Septal Normal [place]-Anterior Normal [place]-Lateral Normal [place]-Inferior Normal [place]-Tip Normal Chambers Value Units (Range) LA area 24 cm2 (<21) RA area 19 cm2 (<18) Ao root 2.9 cm (2.1 to 3.6) Asc Ao 2.8 cm (2 to 3.5) Mitral Valve Value Units (Range) E peak 0.82 m/sec E/A ratio 1.1 ratio MVDT 268 msec E1 0.11 m/sec E/E1 7 ratio This report has been electronically signed by: Anthony Leary MD 04/09/2013 15:20:08 Images reviewed and interpretation verified [facility] Cardiac Ultrasound Laboratory Sergo Ortiz MD ECHO ORDERABLES * EKG 12 Lead (04/09/2013 2:24 PM EDT) Ventricular rate 52 BPM MUSE SYSTEM Atrial Rate 52 BPM MUSE SYSTEM P-R Interval 148 ms MUSE SYSTEM QRS Duration 84 ms MUSE SYSTEM Q-T Interval 418 ms MUSE SYSTEM QTC Calculated (Bezet) 388 ms MUSE SYSTEM Calculated P [place] 51 degrees MUSE SYSTEM Calculated R [place] 52 degrees MUSE SYSTEM Calculated T [place] 42 degrees MUSE SYSTEM INTERPRETATION Sinus bradycardia with sinus arrhythmia Nonspecific T wave abnormality Abnormal ECG When compared with ECG of 09-APR-2013 09:42, No significant change was found Confirmed by MD CARL, SERGO ([id number]) on 04/09/2013 6:04:44 PM MUSE SYSTEM 04/09/2013 2:24 PM EDT 04/09/2013 6:04 PM EDT Tavon Reed MD ECG ORDERABLES Performing Organization Address City/[facility] Co de Phone Number MUSE SYSTEM * Troponin T (04/09/2013 2:00 PM EDT) Troponin-T <0.03 <=0.03 ng/mL [facility] Comment: 0.03 ng/mL: Represents the 99th percentile [...] consensus document of the Joint Society of Cardiology/[place] [employer] Committee for the redefinition of myocardial infarction. Journal of the [place] [employer] 2000; 36: 959-969] Blood specimen (specimen) 04/09/2013 2:00 PM EDT 04/09/2013 2:10 PM EDT Narrative Resulting Agency Comment Spec In Lab Tavon Reed MD CHEMISTRY ORDERABLES Performing Organization Address [facility] Co de Phone Number [facility] * (ABNORMAL) Rapid Qual Drug Screen, Urine ([facility]) (04/09/2013 11:50 AM EDT) Pathologist [facility] [place] Marijuana Metabolites Scr None Detected None Detected [facility] Comment: The marijuana metabolites screen detects the THC Metabolite (14-riu-2-carboxy- 9-THC) at concentrations >50 ng/mL. Qualitative Drug screens are reported as None Detected or Presumptive Positive as the results are not routinely confirmed by highly-specific methods. As with any screen occasional false positive results from cross-reacting substances can occur. Not for Medico-Legal Purposes. [place] Phencyclidine Scr None Detected None Detected [facility] Comment: The phencyclidine screen detects phencyclidine at concentrations >25 ng/mL. Qualitative Drug screens are reported as None Detected or Presumptive Positive as the results are not routinely confirmed by highly-specific methods. As with any screen occasional false positive results from cross-reacting substances can occur. Not for Medico-Legal Purposes. [place] Cocaine Metabolites Scr None Detected None Detected [facility] Comment: The cocaine metabolites screen detects benzoylecgonine (Cocaine Metabolite) at concentrations >150 ng/mL. Qualitative Drug screens are reported as None Detected or Presumptive Positive as the results are not routinely confirmed by highly-specific methods. As with any screen occasional false positive results from cross-reacting substances can occur. Not for Medico-Legal Purposes. [place] Methamphetamines Scr None Detected None Detected [facility] Comment: The methamphetamine screen detects d-methamphetamine at concentrations >500 ng/mL. Qualitative Drug screens are reported as None Detected or Presumptive Positive as the results are not routinely confirmed by highly-specific methods. As with any screen occasional false positive results from cross-reacting substances can occur. Not for Medico-Legal Purposes. [place] Opiates Scr Presumptive Pos(A) None Detected [facility] Comment: The opiates screen detects opiates at a concentration >100 ng/mL and oxymorphone >250 ng/mL. Qualitative Drug screens are reported as None Detected or Presumptive Positive as the results are not routinely confirmed by highly-specific methods. As with any screen occasional false positive results from cross-reacting substances can occur. Not for Medico-Legal Purposes. [place] Amphetamines Scr None Detected None Detected [facility] Comment: The amphetamine screen detects d-amphetamine at concentrations >500 ng/mL. Qualitative Drug screens are reported as None Detected or Presumptive Positive as the results are not routinely confirmed by highly-specific methods. As with any screen occasional false positive results from cross-reacting substances can occur. Not for Medico-Legal Purposes. MARILU Benzodiazepines Scr None Detected None Detected CERNER MILLENNIUM Comment: The benzodiazepines screen detects benzodiazepines at concentrations >150 ng/mL. Not all benzodiazepines cross-react equally with antibody used in this screen. Due to the low dosage of clonazepam, false negatives may be obtained due to low concentration of clonazepam metabolites. Qualitative Drug screens are reported as None Detected or Presumptive Positive as the results are not routinely confirmed by highly-specific methods. As with any screen occasional false positive results from cross-reacting substances can occur. Not for Medico-Legal Purposes. MARILU Tricyclics Scr None Detected None Detected CERNER MILLENNIUM Comment: The tricyclics screen detects tricyclic antidepressants at concentrations >300 ng/mL. Not all tricyclics cross-react equally with the antibody used in this screen. Qualitative Drug screens are reported as None Detected or Presumptive Positive as the results are not routinely confirmed by highly-specific methods. As with any screen occasional false positive results from cross-reacting substances can occur. Not for Medico-Legal Purposes. MARILU Methadone Scr None Detected None Detected CERNER MILLENNIUM Comment: The methadone screen detects methadone at concentrations >200 ng/mL. Qualitative Drug screens are reported as None Detected or Presumptive Positive as the results are not routinely confirmed by highly-specific methods. As with any screen occasional false positive results from cross-reacting substances can occur. Not for Medico-Legal Purposes. MARILU Barbiturates Scr None Detected None Detected CERNER MILLENNIUM Comment: The barbiturates screen detects barbiturate at concentrations >200 ng/mL. Note: Not all barbiturates cross-react equally with antibody used in this screen. Qualitative Drug screens are reported as None Detected or Presumptive Positive as the results are not routinely confirmed by highly-specific methods. As with any screen occasional false positive results from cross-reacting substances can occur. Not for Medico-Legal Purposes. MARILU Oxycodone Scr None Detected None Detected CERNER MILLENNIUM Comment: The oxycodone screen detects oxycodone at concentrations >100 ng/mL and oxymorphone >250 ng/ml. Qualitative Drug screens are reported as None Detected or Presumptive Positive as the results are not routinely confirmed by highly-specific methods. As with any screen occasional false positive results from cross-reacting substances can occur. Not for Medico-Legal Purposes. MARILU Propoxyphene Scr None Detected None Detected CERNER MILLENNIUM Comment: The propoxyphene screen detects propoxyphene at concentrations >300 ng/mL. Qualitative Drug screens are reported as None Detected or Presumptive Positive as the results are not routinely confirmed by highly-specific methods. As with any screen occasional false positive results from cross-reacting substances can occur. Not for Medico-Legal Purposes. MARILU Buprenorphine Scr None Detected None Detected NICANORKELSEY SALAZAR Comment: The buprenorphine screen detects buprenorphine at concentrations >10 ng/mL. Qualitative Drug screens are reported as None Detected or Presumptive Positive as the results are not routinely confirmed by highly-specific methods. As with any screen occasional false positive results from cross-reacting substances can occur. Not for Medico-Legal Purposes. Urine specimen (specimen) 04/09/2013 11:50 AM EDT 04/09/2013 12:10 PM EDT Narrative Resulting Agency Comment Spec In Lab Tavon Reed MD URINE ORDERABLES [facility] * XR chest routine PA & lateral (04/09/2013 11:08 AM EDT) Anatomical Region Laterality Modality Chest N/A Radiographic Ara ging 04/09/2013 11:0 8 AM EDT Narrative 04/09/2013 11:11 AM EDT Examination CHEST ROUTINE 2 VIEWS Clinical History chest pain Comparison 07/19/2005. Technique PA and lateral views of the chest. Findings The lungs appear clear, symmetrically expanded, and unchanged. ??No pleural effusion or pneumothorax is seen. ??The cardiomediastinal silhouette, nano, pulmonary vessels appear within normal limits and unchanged. ??No interval osseous findings are identified. Impression No acute cardiopulmonary pathology. ??No significant change from 07/19/2005. Procedure Note Tahira Medrano MD - 04/09/2013 Examination CHEST ROUTINE 2 VIEWS Clinical History chest pain Comparison 07/19/2005. Technique PA and lateral views of the chest. Findings The lungs appear clear, symmetrically expanded, and unchanged. No pleural effusion or pneumothorax is seen. The cardiomediastinal silhouette, nano, pulmonary vessels appear within normal limits and unchanged. No interval osseous findings are identified. Impression No acute cardiopulmonary pathology. No significant change from07/19/2005. Tavon Reed MD IMG DX ORDERABLES * Differential, Automated (04/09/2013 10:44 AM EDT) Neutrophils % 59.6 34.0 - 71.0 % CERNER MILLENNIUM Neutr Abs (ANC) 5.35 1.50 - 6.30 x10(3)/mcL CERNER MILLENNIUM Lymphocytes % 31.4 19.0 - 53.0 % CERNER MILLENNIUM Lymphocytes Abs 2.8 1.0 - 3.6 x10(3)/mcL CERNER MILLENNIUM Monocytes % 7.4 4.0 - 13.0 % CERNER MILLENNIUM Monocyte Abs 0.7 0.2 - 1.0 x10(3)/mcL CERNER MILLENNIUM Eosinophils % 1.0 0.0 - 7.0 % CERNER MILLENNIUM Eosinophils Abs 0.1 0.0 - 0.5 x10(3)/mcL CERNER MILLENNIUM Basophils % 0.4 0.0 - 2.0 % CERNER MILLENNIUM Basophils Abs 0.0 0.0 - 0.2 x10(3)/mcL CERNER MILLENNIUM Immature Gran % 0.20 0.00 - 0.66 % CERNER MILLENNIUM Comment: Immature granulocytes(IG's)percentage and absolute count will include metamyelocytes, myelocytes, and promyelocytes. Blood smears from CBCs yielding IG's will be scanned manually for concordance. If this scan disagrees with the automated IG or if promyelocytes are noted, a manual differential will be performed. Fartun Gran Abs 0.02 0.00 - 0.05 x10(3)/mcL CERNER MILLENNIUM Blood specimen (specimen) 04/09/2013 10:44 AM EDT 04/09/2013 10:56 AM EDT Tavon Reed MD HEMATOLOGY ORDERABLE S [facility] * Troponin T (04/09/2013 10:44 AM EDT) Troponin-T <0.03 <=0.03 ng/mL [facility] CORTEZENNIUM Comment: 0.03 ng/mL: Represents the 99th percentile [...] consensus document of the Joint Society of Cardiology/[place] College [employer] Committee for the redefinition of myocardial infarction. Journal of the [place] College of [employer]iology 2000; 36: 959-969] Blood specimen (specimen) 04/09/2013 10:44 AM EDT 04/09/2013 10:56 AM EDT Narrative Resulting Agency Comment Spec In Lab Tavon Reed MD CHEMISTRY ORDERABLES Performing Organization Address City/[facility]/ZIP Co de Phone Number [facility] RxAppsIUM * Glucose, random (04/09/2013 10:44 AM EDT) Glucose Lvl 86 60 - 199 mg/dL [facility] Comment:Diabetes: >=200 mg/d L plus symptoms Blood specimen (specimen) 04/09/2013 10:44 AM EDT 04/09/2013 10:56 AM EDT Narrative Resulting Agency Comment Spec In Lab Tavon Reed MD CHEMISTRY ORDERABLES Performing Organization Address City/[facility]/ZIP Co de Phone Number [facility] Rx[facility]UM * Creatinine (04/09/2013 10:44 AM EDT) Creatinine 0.75 0.70 - 1.20 mg/dL [facility] Comment: Please note that the pediatric reference intervals supplied above were not validated at [facility]. Results from pediatric patients should be interpreted in conjunction to the patient's age, height and muscle mass. Estimated GFR >60 >=60 [facility] CylanceENNIUM Comment: This estimated GFR (eGFR) value was [...] internet browser. http://www.nkdep.nih.gov/lab-evaluation.shtml http://www.kidney.org/professionals/ Blood specimen (specimen) 04/09/2013 10:44 AM EDT 04/09/2013 10:56 AM EDT Narrative Resulting Agency Comment Spec In Lab Tavon Reed MD CHEMISTRY ORDERABLES Performing Organization Address [facility] Co de Phone Number [facility] MILLENNIUM * BUN (04/09/2013 10:44 AM EDT) BUN 16 8 - 18 mg/dL CERNER MILLENNIUM Blood specimen (specimen) 04/09/2013 10:44 AM EDT 04/09/2013 10:56 AM EDT Narrative Resulting Agency Comment Spec In Lab Tavon Reed MD CHEMISTRY ORDERABLES Performing Organization Address [facility] de Phone Number CERKELSEY MILLENNIUM * Electrolytes panel (04/09/2013 10:44 AM EDT) Sodium 138 135 - 145 mmol/L CERNER MILLENNIUM Potassium 4.4 3.5 - 5.0 mmol/L CERNER MILLENNIUM Comment: Please note: ??Patients with WBC >100,000 may have falsely elevated Potassium levels. ??For accurate Potassium quantification in these patients send serum separator tube (gold top) for subsequent determinations. ??Contact the Clinical Chemistry Laboratory if there are any questions. Chloride 101 98 - 107 mmol/L CERNER MILLENNIUM CO2 25 22 - 31 mmol/L CERNER MILLENNIUM Anion Gap 12 5 - 15 mmol/L CERNER MILLENNIUM Blood specimen (specimen) 04/09/2013 10:44 AM EDT 04/09/2013 10:56 AM EDT Narrative Resulting Agency Comment Spec In Lab Tavon Reed MD CHEMISTRY ORDERABLES Performing Organization Address [facility] Co de Phone Number CERKELSEY MILLJUANAIUM * (ABNORMAL) CBC (with Diff) (04/09/2013 10:44 AM EDT) WBC 9.0 4.0 - 10.0 x10(3)/mcL CERNER MILLENNIUM RBC 4.50 3.93 - 5.22 x10(6)/mcL CERNER MILLENNIUM Hemoglobin 12.7 11.2 - 15.7 gm/dL CERNER MILLENNIUM Hematocrit 41.0 34.0 - 45.0 % CERNER MILLENNIUM MCV 91.1 79.0 - 94.0 fL CERNER MILLENNIUM MCH 28.2 26.6 - 32.2 pg CERNER MILLENNIUM MCHC 31.0(L) 32.0 - 36.5 gm/dL [facility] MILLENNIUM Platelets 251 145 - 370 x10(3)/mcL [facility] MILLENNIUM RDWSD 51.6(H) 35.0 - 46.0 fL [facility] MILLENNIUM RDWCV 15.4(H) 10.9 - 14.4 % [facility] MILLENNIUM MPV 10.3 9.0 - 12.0 fL [facility] MILLENNIUM Blood specimen (specimen) 04/09/2013 10:44 AM EDT 04/09/2013 10:56 AM EDT Narrative Resulting Agency Comment Spec In Lab Tavon Reed MD HEMATOLOGY ORDERABLE S [facility] * EKG 12 Lead (04/09/2013 9:42 AM EDT) Ventricular rate 53 BPM MUSE SYSTEM Atrial Rate 53 BPM MUSE SYSTEM P-R Interval 152 ms MUSE SYSTEM QRS Duration 84 ms MUSE SYSTEM Q-T Interval 414 ms MUSE SYSTEM QTC Calculated (Bezet) 388 ms MUSE SYSTEM Calculated P [place] 54 degrees MUSE SYSTEM Calculated R [place] 56 degrees MUSE SYSTEM Calculated T [place] 57 degrees MUSE SYSTEM INTERPRETATION Sinus bradycardia with sinus arrhythmia Nonspecific T wave abnormality Abnormal ECG When compared with ECG of 31-MAY-2005 11:28, anterior T wave inversion more pronounced. Confirmed by MD CARL, SERGO ([id number]) on 04/09/2013 6:04:15 PM MUSE SYSTEM 04/09/2013 9:42 AM EDT 04/09/2013 6:04 PM EDT Caleb Goldberg MD ECG ORDERABLES [employer] SYSTEM documented in this encounter Visit Diagnoses Diagnosis Chest pain Chest pain, unspecified Chest pain radiating to arm Chest pain, unspecified documented in this encounter Administered Medications Inactive Administered Medications - up to 3 most recent administrations Medication Order MAR Action Action Date Dose Rate Site aspirin tablet 325 mg 325 mg, Oral, ONCE, 1 dose, On Tue04/09/13 at 1045, STAT Given 04/09/2013 10:45 AM EDT 325 mg nitroGLYcerin (NITROLINGUAL) 0.4 mg/dose spray 1 spray 1 spray, Sublingual, EVERY 5 MIN PRN, 3 doses, Starting on Tue04/09/13 at 1027, Until Tue04/09/13 at 1701, Chest pain, STAT Given 04/09/2013 11:10 AM EDT 1 spray Given 04/09/2013 10:53 AM EDT 1 spray perflutren lipid microspheres (DEFINITY) injection 1.6 mL 1.6 mL, Intravenous, ONCE PRN, 1 dose, Starting on Tue04/09/13 at 1435, Until Tue04/09/13 at 1300, Other, Routine Given 04/09/2013 1:00 PM EDT 1.6 mLs documented in this encounter Active and Recently Administered Medications Times are shown in EDT. Scheduled Medication Order 04/07/2013 04/08/2013 04/09/2013 aspirin tablet 325 mg (COMPLETED) 325 mg, Oral, ONCE, 1 dose, On Tue04/09/13 at 1045, STAT 1045 (Given - Provid er: Earlene Galloway RN) PRN Medication Order 04/07/2013 04/08/2013 04/09/2013 nitroGLYcerin (NITROLINGUAL) 0.4 mg/dose spray 1 spray (CANCELED) 1 spray, Sublingual, EVERY 5 MIN PRN, 3 doses, Starting on Tue04/09/13 at 1027, Until Tue04/09/13 at 1701, Chest pain, STAT 1053 (Given - Provid er: Earlene Galloway RN)1110 (Given - Provider: Abby Antonio RN) perflutren lipid microspheres (DEFINITY) injection 1.6 mL (COMPLETED) 1.6 mL, Intravenous, ONCE PRN, 1 dose, Starting on Tue04/09/13 at 1435, Until Tue04/09/13 at 1300, Other, Routine 1300 (Given - Provid er: Remy Campos) documented in this encounter Care Teams Clay Structure Builder And Servicer Relationship Specialty Start Date End Date Aman Lawrence APRN [address] [place] [address] PCP - General 06/16/10 06/27/18 documented as of this encounter
--- OUTSIDE RECORDS SUMMARY | 2024-02-22 00:58 | XMS_ITS | Encounter Summary ---
Author Organization [facility] Address [facility] [place] [address] Care Team Providers Care Community Affairs Manager Name Role Phone Aman Lawrence APRN Primary Care Provider [phone] Encounter Details Date Type Department Care Team (Late st Contact Info) Description 08/04/2010 7:55 AM EST Office Visit Functional Tenriism Program [place] [address] Ananth Sesay, PT [facility] [place] [address] Social History Tobacco Use Types Packs/Day Years Used Date Smoking Tobacco: Never Assessed Sex and Gender Information Value Date Recorded Sex Assigned at Not on file Gender Identity Not on file Sexual Orientation Not on file documented as of this encounter Plan of Treatment Not on file documented as of this encounter Visit Diagnoses Not on filedocumented in this encounter Care Teams Community Affairs Manager Relationship Specialty Start Date End Date Aman [place] [address] PCP - General 06/16/10 06/27/18 documented as of this encounter
--- OUTSIDE RECORDS SUMMARY | 2024-02-22 00:58 | XMS_ITS | Encounter Summary ---
Author Organization [facility] [place] [address] Care Team Providers Care Heel Emery Buffer Name Role Phone Aman Lawrence APRN Primary Care Provider [phone] Encounter Details Date Type Department Care Team (Late st Contact Info) Description 08/12/2010 9:00 AM EST Office Visit Functional Jew Program [place] [address] Tawnya Allison Social History Tobacco Use Types Packs/Day Years Used Date Smoking Tobacco: Never Assessed Sex and Gender Information Value Date Recorded Sex Assigned at Not on file Gender Identity Not on file Sexual Orientation Not on file documented as of this encounter Plan of Treatment Not on file documented as of this encounter Visit Diagnoses Not on filedocumented in this encounter Care Teams Heel Emery Buffer Relationship Specialty Start Date End [place] [address] PCP - General 06/16/10 06/27/18 documented as of this encounter
--- OUTSIDE RECORDS SUMMARY | 2024-02-22 00:58 | XMS_ITS | Encounter Summary ---
Author Organization [facility] Address [facility] [place] [address] Care Team Providers Care Unemployment Insurance Hearing Officer Name Role Phone Aman Lawrence APRN Primary Care Provider [phone] Encounter Details Date Type Department Care Team (Late st Contact Info) Description 07/31/2010 7:55 AM EST Office Visit Functional Bahai Program [place] [address] Ananth Sesay, PT [facility] [place] [address] Social History Tobacco Use Types Packs/Day Years Used Date Smoking Tobacco: Never Assessed Sex and Gender Information Value Date Recorded Sex Assigned at Not on file Gender Identity Not on file Sexual Orientation Not on file documented as of this encounter Plan of Treatment Not on file documented as of this encounter Visit Diagnoses Not on filedocumented in this encounter Care Teams Unemployment Insurance Hearing Officer Relationship Specialty Start Date End Date [place] [address] PCP - General 06/16/10 06/27/18 documented as of this encounter
--- OUTSIDE RECORDS SUMMARY | 2024-02-22 00:58 | XMS_ITS | Encounter Summary ---
Author Organization [facility] [place] [address] Care Team Providers Care Bone Char Kiln Operator Name Role Phone Aman Lawrence APRN Primary Care Provider [phone] Encounter Details Date Type Department Care Team (Late st Contact Info) Description 08/14/2010 8:00 AM EST Office Visit Functional Uatsdin Program [place] [address] Tawnya Allison Social History Tobacco Use Types [...] on filedocumented in this encounter Care Teams Bone Char Kiln Operator Relationship Specialty Start Date End [place] [address] PCP - General 06/16/10 06/27/18 documented as of this encounter
--- OUTSIDE RECORDS SUMMARY | 2024-02-22 00:58 | XMS_ITS | Encounter Summary ---
[place] [address] Care Team Providers Care Certified Adapted Physical Educator Name Role Phone Yisel Marroquin MD Primary Care Provider [phone] Encounter Details Date Type Department Care Team (Late st Contact Info) Description 11/14/2012 Orders Only Radiology and Cardiology Results [address] [place] [phone] Apd Conversion, Results Provider, Social History Tobacco [...] Date/Time Associated Diagnosis Comments HEMOGLOBIN A1C Routine 11/14/2012 documented in this encounter Results * (ABNORMAL) Hemoglobin A1c (11/14/2012) Est Avg Gluc 128.4(ExtH ) 82.5 - 116.9 [facility] DAY CONVERSION Hemoglobin A1C 6.1(Materials Planner al Lab) 4.5 - 6.2 [facility] DAY CONVERSION 11/14/2012 Results Provider Apd Conversion MD JASON ESTRELLA ORDERABLES [facility] CONVERSION documented in this encounter Visit Diagnoses Not on filedocumented in this encounter Care Teams Certified Adapted Physical Educator Relationship Specialty Start Date End Date Yisel Marroquin MD [address] [place] [address] PCP - General 11/13/18 03/05/19 documented as of this encounter
--- OUTSIDE RECORDS SUMMARY | 2024-02-22 00:58 | XMS_ITS | Encounter Summary ---
[place] [address] Care Team Providers Care Support Clerk Name Role Phone Yisel Marroquin MD Primary Care Provider [phone] Encounter Details Date Type Department Care Team (Late st Contact Info) Description 03/08/2012 Orders Only Radiology and Cardiology Results [address] [place] [phone] Apd Conversion, Results Provider, Social History Tobacco [...] Priority Date/Time Associated Diagnosis Comments TSH Routine 03/08/2012 documented in this encounter Results * (ABNORMAL) TSH (03/08/2012) TSH 2.570(Exte rnal Lab) 0.358 - 3.74 KORI GARCIA CONVERSION 03/08/2012 Results Provider Apd Conversion MD JASON ESTRELLA ORDERABLES [facility] DAY CONVERSION documented in this encounter Visit Diagnoses Not on filedocumented in this encounter Care Teams Support Clerk Relationship Specialty Start Date End Date Yisel Marroquin MD [address] [place] [address] PCP - General 11/13/18 03/05/19 documented as of this encounter
--- OUTSIDE RECORDS SUMMARY | 2024-02-22 00:58 | XMS_ITS | Encounter Summary ---
Author Organization [facility] Address [facility] [place] [address] Care Team Providers Care Data Coder Operator Name Role Phone Aman Lawrence APRN Primary Care Provider [phone] Encounter Details Date Type Department Care Team (Late st Contact Info) Description 08/10/2010 7:55 AM EST Office Visit Functional Christianity Program [place] [address] Ananth Sesay, PT [facility] [place] [address] Social History Tobacco Use Types Packs/Day Years Used Date Smoking Tobacco: Never Assessed Sex and Gender Information Value Date Recorded Sex Assigned at Not on file Gender Identity Not on file Sexual Orientation Not on file documented as of this encounter Plan of Treatment Not on file documented as of this encounter Visit Diagnoses Not on filedocumented in this encounter Care Teams Data Coder Operator Relationship Specialty Start Date End Date [place] [address] PCP - General 06/16/10 06/27/18 documented as of this encounter
--- OUTSIDE RECORDS SUMMARY | 2024-02-22 00:58 | XMS_ITS | Encounter Summary ---
Author Organization [facility] Address [facility] [place] [address] Care Team Providers Care Die Maker Electronic Name Role Phone Aman Lawrence APRN Primary Care Provider [phone] Encounter Details Date Type Department Care Team (Late st Contact Info) Description 08/05/2010 7:55 AM EST Office Visit Functional Jewish Program [place] [address] Ananth Sesay, PT [facility] [place] [address] Social History Tobacco Use Types Packs/Day Years Used Date Smoking Tobacco: Never Assessed Sex and Gender Information Value Date Recorded Sex Assigned at Not on file Gender Identity Not on file Sexual Orientation Not on file documented as of this encounter Plan of Treatment Not on file documented as of this encounter Visit Diagnoses Not on filedocumented in this encounter Care Teams Die Maker Electronic Relationship Specialty Start Date End Date [place] [address] PCP - General 06/16/10 06/27/18 documented as of this encounter
--- OUTSIDE RECORDS SUMMARY | 2024-02-22 00:58 | XMS_ITS | Encounter Summary ---
Author Organization [facility] [place] [address] Care Team Providers Care Singing Telegram Performer Name Role Phone Aman Lawrence APRN Primary Care Provider [phone] Encounter Details Date Type Department Care Team (Latest Contact Info) Description 08/06/2010 8:00 AM EST Procedure visit [place] [address] Caroline Hugo ART CRITIC [facility] [place] [address] Discharge Disposition: Home Social History Tobacco Use [...] on filedocumented in this encounter Care Teams Singing Telegram Performer Relationship Specialty Start Date End Date Aman Lawrence [place] [address] PCP - General 06/16/10 06/27/18 documented as of this encounter
--- OUTSIDE RECORDS SUMMARY | 2024-02-22 00:58 | XMS_ITS | Encounter Summary ---
Author [facility] [place] [address] Care Team Providers Care Hat Sprayer Name Role Phone Aman Lawrence APRN Primary Care Provider [phone] Encounter Details Date Type Department Care Team (Late st Contact Info) Description 01/18/2011 Abstract [place] [address] Bong Cabrera MD [facility] [place] [address] Social History Tobacco Use Types Packs/Day Years [...] on filedocumented in this encounter Care Teams Hat Sprayer Relationship Specialty Start Date End Date Aman Lawrence [place] [address] PCP - General 06/16/10 06/27/18 documented as of this encounter
--- OUTSIDE RECORDS SUMMARY | 2024-02-22 00:58 | XMS_ITS | Encounter Summary ---
Author Organization [facility] [place] [address] Care Team Providers Care Integration Solution Architect Name Role Phone Aman Lawrence APRN Primary Care Provider [phone] Encounter Details Date Type Department Care Team (Late st Contact Info) Description 07/30/2010 9:00 AM EST Office Visit Functional Amish Program [place] [address] Tawnya Allison Social History Tobacco Use Types [...] on filedocumented in this encounter Care Teams Integration Solution Architect Relationship Specialty Start Date End [place] [address] PCP - General 06/16/10 06/27/18 documented as of this encounter
--- OUTSIDE RECORDS SUMMARY | 2024-02-22 00:58 | XMS_ITS | Encounter Summary ---
Author Organization Formerly [facility] [place] [address] Care Team Providers Care Spring Salvage Worker Name Role Phone Aman Lawrence APRN Primary Care Provider [phone] Encounter Details Date Type Department Care Team (Late st Contact Info) Description 01/18/2011 Abstract [place] [address] Lay Davis RN Social History Tobacco Use Types Packs/Day [...] on filedocumented in this encounter Care Teams Spring Salvage Worker Relationship Specialty Start Date [place] [address] PCP - General 06/16/10 06/27/18 documented as of this encounter
--- OUTSIDE RECORDS SUMMARY | 2024-02-22 00:58 | XMS_ITS | Encounter Summary ---
[place] [address] Care Team Providers Care Electrician Marine Name Role Phone Yisel Marroquin MD Primary Care Provider [phone] Encounter Details Date Type Department Care Team (Late st Contact Info) Description 10/11/2011 Orders Only Radiology and Cardiology Results [address] [place] [phone] Apd Conversion, Results Provider, Social History Tobacco [...] Comments LIPID PANEL (REFLEX DIRECT LDL) Routine 10/11/2011 documented in this encounter Results * (ABNORMAL) Lipid Panel (10/11/2011) Chol/HDL Ratio 6.6(ExtH) 3.2 - 4.4 KORI FLORES DAY CONVERSION VLDL 43.4(Exte rnal Lab) KORI FLORES DAY CONVERSION LDL Cholesterol 154(Exter nal Lab) KORI FLORES DAY CONVERSION HDL 34.9(Exte rnal Lab) 29 - 89 KORI FLORES DAY CONVERSION Triglycerides 217(ExtH) 0 - 199 KORI FLORES DAY CONVERSION Chol, Total 232(ExtH) 0 - 199 KORI PE CK DAY CONVERSION 10/11/2011 Results Provider Apd Conversion MD JASON ESTRELLA ORDERABLES KORI FLORES DAY CONVERSION documented in this encounter Visit Diagnoses Not on filedocumented in this encounter Care Teams Electrician Marine Relationship Specialty Start Date End Date Yisel Marroquin MD [address] [place] [address] PCP - General 11/13/18 03/05/19 documented as of this encounter
--- OUTSIDE RECORDS SUMMARY | 2024-02-22 00:58 | XMS_ITS | Encounter Summary ---
[place] [address] Care Team Providers Care Manager Practice Name Role Phone Yisel Marroquin MD Primary Care Provider [phone] Encounter Details Date Type Department Care Team (Late st Contact Info) Description 11/14/2012 Orders Only Radiology and Cardiology Results [address] [place] [phone] Apd Conversion, Results Provider, Social History Tobacco [...] Priority Date/Time Associated Diagnosis Comments TSH Routine 11/14/2012 documented in this encounter Results * (ABNORMAL) TSH (11/14/2012) TSH 3.300(Exte rnal Lab) 0.358 - 3.74 KORI GARCIA CONVERSION 11/14/2012 Results Provider Apd Conversion MD JASON ESTRELLA ORDERABLES KORI FLORES DAY CONVERSION documented in this encounter Visit Diagnoses Not on filedocumented in this encounter Care Teams Manager Practice Relationship Specialty Start Date End Date Yisel Marroquin MD [address] [place] [address] PCP - General 11/13/18 03/05/19 documented as of this encounter
--- OUTSIDE RECORDS SUMMARY | 2024-02-22 00:58 | XMS_ITS | Encounter Summary ---
Author Organization [facility] [place] [address] Care Team Providers Care Special Order Jeweler Name Role Phone Aman Lawrence APRN Primary Care Provider [phone] Encounter Details Date Type Department Care Team (Late st Contact Info) Description 08/04/2010 9:00 AM EST Office Visit Functional [facility] Program [place] [address] Tawnya Allison Social History Tobacco Use Types [...] on filedocumented in this encounter Care Teams Special Order Jeweler Relationship Specialty Start Date End [place] [address] PCP - General 06/16/10 06/27/18 documented as of this encounter
--- OUTSIDE RECORDS SUMMARY | 2024-02-22 00:58 | XMS_ITS | Encounter Summary ---
Author Organization [facility] [place] [address] Care Team Providers Care Radio Sales Account Executive Name Role Phone Aman Lawrence APRN Primary Care Provider [phone] Encounter Details Date Type Department Care Team (Latest Contact Info) Description 12/04/2010 11:46 AM EDT - 12/04/2010 8:23 PM EDT Hospital Encounter [place] [address] Skinny Gomez MD [facility] [place] [address] Kasia Crouch MD [facility] [place] [address] Discharge Disposition: Home Social History Tobacco Use [...] Sign Reading Time Taken Comments Blood Pressure 172/91 12/04/2010 12:11 PM EDT Pulse 51 12/04/2010 12:09 PM EDT Temperature 36.7 ??C (98.1 ??F) 12/04/2010 12:09 PM E DT Respiratory Rate 16 12/04/2010 12:09 PM EDT Oxygen Saturation 100% 12/04/2010 12:09 PM EDT Inhaled Oxygen Concentration - - Weight - - Height - - Body Mass Index - - documented in this encounter Medications at Time of Discharge Medication Sig Dispensed Refills Start Date End Date varenicline (CHANTIX) 0.5 mg tablet Take 0.5 [...] vitamins (B COMPLEX-VITAMIN B12) tablet 09/23/2010 11/19/2016 axtnuglnggon-gfna-sxzv rals (COMPLETE MULTIVITAMIN) Tab tablet 1 Tablet(s), PO, Once daily 09/23/2010 11/19/2016 calcium citrate-vitamin D (CITRACAL+D) 315-200 mg-unit per tablet 2 Tablet(s), PO, Twice daily 09/23/2010 11/19/2016 ergocalciferol (VITAMIN D) 50,000 unit capsule [id number], PO, TWICE a week 09/23/2010 11/19/2016 documented as of this encounter Miscellaneous Notes * Miscellaneous - Provider, Scanning - 12/04/2010 3:33 PM EDT documented in this encounter Plan of Treatment Not on file documented as of this encounter Procedures Procedure Name Priority Date/Time Associated Diagnosis Comments UPPER GI ENDOSCOPY Iron deficiency Bariatric surgery status documented in this encounter Visit Diagnoses Not on filedocumented in this encounter Administered Medications Inactive Administered Medications - up to 3 most recent administrations Medication Order MAR Action Action Date Dose Rate Site sodium chloride 0.9% infusion 30 mL/hr, Intravenous, CONTINUOUS, Starting on Tue12/04/10 at 1230, Until Tue12/04/10 at 2223, Endoscopy (Day of Procedure) New Bag 12/04/2010 12:18 PM EDT 30 mL/hr 30 mL/hr documented in this encounter Active and Recently Administered Medications Times are shown in EDT. Continuous Medication Order 12/02/2010 12/03/2010 12/04/2010 sodium chloride 0.9% infusion (CANCELED) 30 mL/hr, Intravenous, CONTINUOUS, Starting on Tue12/04/10 at 1230, Until Tue12/04/10 at 2223, Endoscopy (Day of Procedure) 1218 (New Bag - Prov ider: Emil Greenwood RN) documented in this encounter Care Teams Radio Sales Account Executive Relationship Specialty Start Date End Date Aman Lawrence APRN [address] [place] [address] PCP - General 06/16/10 06/27/18 documented as of this encounter
--- OUTSIDE RECORDS SUMMARY | 2024-02-22 00:58 | XMS_ITS | Encounter Summary ---
Author Organization [facility] [place] [address] Care Team Providers Care Roof Cement And Paint Maker Helper Name Role Phone Aman Lawrence APRN Primary Care Provider [phone] Encounter Details Date Type Department Care Team (Late st Contact Info) Description 08/24/2010 8:30 AM EST Office Visit Psychiatry and [place]al [place] [address] Sadie Chisholm [facility] [address] [place] [address] Social History Tobacco Use Types Packs/Day Years Used Date Smoking Tobacco: Never Assessed Sex and Gender Information Value Date Recorded Sex Assigned at Not on file Gender Identity Not on file Sexual Orientation Not on file documented as of this encounter Plan of Treatment Not on file documented as of this encounter Visit Diagnoses Not on filedocumented in this encounter Care Teams Roof Cement And Paint Maker Helper Relationship Specialty Start Date End Date Aman Lawrence [place] [address] PCP - General 06/16/10 06/27/18 documented as of this encounter
--- OUTSIDE RECORDS SUMMARY | 2024-02-22 00:58 | XMS_ITS | Encounter Summary ---
Author Organization [facility] [place] [address] Care Team Providers Care Research Biostatistician Name Role Phone Aman Lawrence APRN Primary Care Provider [phone] Encounter Details Date Type Department Care Team (Late st Contact Info) Description 08/24/2010 8:00 AM EST Procedure visit [place] [address] Social History Tobacco Use Types Packs/Day Years Used Date Smoking Tobacco: Never Assessed Sex and Gender Information Value Date Recorded Sex Assigned at Not on file Gender Identity Not on file Sexual Orientation Not on file documented as of this encounter Plan of Treatment Not on file documented as of this encounter Visit Diagnoses Not on filedocumented in this encounter Care Teams Research Biostatistician Relationship Specialty Start Date End Date Aman Lawrence [place] [address] PCP - General 06/16/10 06/27/18 documented as of this encounter
--- OUTSIDE RECORDS SUMMARY | 2024-02-22 00:58 | XMS_ITS | Encounter Summary ---
Author Organization [facility] [place] [address] Care Team Providers Care Legal Services Professional Name Role Phone Aman Lawrence APRN Primary Care Provider [phone] Encounter Details Date Type Department Care Team (Late st Contact Info) Description 07/30/2010 2:30 PM EST Office Visit Functional [facility] Day Program [place] [address] Bong Cabrera MD [facility] [address] Social History Tobacco Use Types Packs/Day Years Used Date Smoking Tobacco: Never Assessed Sex and Gender Information Value Date Recorded Sex Assigned at Not on file Gender Identity Not on file Sexual Orientation Not on file documented as of this encounter Plan of Treatment Not on file documented as of this encounter Visit Diagnoses Not on filedocumented in this encounter Care Teams Legal Services Professional Relationship Specialty Start Date End Date Aman Lawrence [place] [address] PCP - General 06/16/10 06/27/18 documented as of this encounter
--- OUTSIDE RECORDS SUMMARY | 2024-02-22 00:58 | XMS_ITS | Encounter Summary ---
Author Organization [facility] [place] [address] Care Team Providers Care Logging Shovel Operator Name Role Phone Aman Lawrence APRN Primary Care Provider [phone] Encounter Details Date Type Department Care Team (Late st Contact Info) Description 08/11/2010 9:00 AM EST Office Visit Functional Orthodox Program [place] [address] Tawnya Allison Social History Tobacco Use Types [...] on filedocumented in this encounter Care Teams Logging Shovel Operator Relationship Specialty Start Date End Date [place] [address] PCP - General 06/16/10 06/27/18 documented as of this encounter
--- OUTSIDE RECORDS SUMMARY | 2024-02-22 00:58 | XMS_ITS | Encounter Summary ---
Author Organization [facility] [place] [address] Care Team Providers Care Rock Dust Sprayer Name Role Phone Aman Lawrence APRN Primary Care Provider [phone] Encounter Details Date Type Department Care Team (Late st Contact Info) Description 09/23/2010 7:00 AM EST Office [place] [address] CLINIC, Aman Steele APRN [address] [place] [address] Bong Cabrera MD [facility] [place] [address] Tawnya lAlison Social History Tobacco Use Types Packs/Day Years Used Date Smoking Tobacco: Never Assessed Sex and Gender Information Value Date Recorded Sex Assigned at Not on file Gender Identity Not on file Sexual Orientation Not on file documented as of this encounter Plan of Treatment Not on file documented as of this encounter Visit Diagnoses Not on filedocumented in this encounter Care Teams Rock Dust Sprayer Relationship Specialty Start Date End Date Aman Lawrence APRN [address] [place] [address] PCP - General 06/16/10 06/27/18 documented as of this encounter
--- OUTSIDE RECORDS SUMMARY | 2024-02-22 00:58 | XMS_ITS | Encounter Summary ---
Author Organization [facility] [place] [address] Care Team Providers Care Practical Ministries Professor Name Role Phone Aman Lawrence APRN Primary Care Provider [phone] Encounter Details Date Type Department Care Team (Late st Contact Info) Description 08/06/2010 11:00 AM EST [place] [phone] Social History Tobacco Use Types Packs/Day Years Used Date Smoking Tobacco: Never Assessed Sex and Gender Information Value Date Recorded Sex Assigned at Not on file Gender Identity Not on file Sexual Orientation Not on file documented as of this encounter Plan of Treatment Not on file documented as of this encounter Visit Diagnoses Not on filedocumented in this encounter Care Teams Practical Ministries Professor Relationship Specialty Start Date End Date Aman Lawrence [place] [address] PCP - General 06/16/10 06/27/18 documented as of this encounter
--- OUTSIDE RECORDS SUMMARY | 2024-02-22 00:58 | XMS_ITS | Encounter Summary ---
Author Organization [facility] [place] [address] Care Team Providers Care Bow Maker Machine Tender Name Role Phone Aman Lawrence APRN Primary Care Provider [phone] Encounter Details Date Type Department Care Team (Late st Contact Info) Description 08/13/2010 11:00 AM EST Follow-[place] [address] Sidra Del Toro APRN [facility] [place] [address] Discharge Disposition: Home Social History Tobacco Use [...] Priority Date/Time Associated Diagnosis Comments PTH Routine 08/13/2010 12:42 PM EST DIFFERENTIAL, AUTOMATED Routine 08/13/2010 12:42 PM EST VITAMIN B1, WHOLE BLOOD Routine 08/13/2010 12:42 PM EST IRON AND TIBC Routine 08/13/2010 12:42 PM EST VITAMIN A Routine 08/13/2010 12:42 PM EST VITAMIN D, 25-HYDROXY Routine 08/13/2010 12:42 PM EST CBC (WITH DIFF) Routine 08/13/2010 12:42 PM EST PREALBUMIN Routine 08/13/2010 12:42 PM EST FOLATE, RBC Routine 08/13/2010 12:42 PM EST FERRITIN Routine 08/13/2010 12:42 PM EST VITAMIN B12 Routine 08/13/2010 12:42 PM EST COMPREHENSIVE METABOLIC PANEL (NON-FASTING) Routine 08/13/2010 12:42 PM EST documented in this encounter Results * (ABNORMAL) REFLEX LAB-A-DIFF (08/13/2010 12:42 PM EST) Neutrophils % 53.1 34.0 - 71.0 % [facility] MILLENNIUM Neutr Abs (ANC) 5.40 1.50 - 6.30 x10(3)/mc L CERN[facility] MILLENNIUM Lymphocytes % 36.6 19.0 - 53.0 % CERNER MILLENNIUM Lymphocytes Abs 3.7(H) 1.0 - 3.6 x10(3)/mc L CERN[facility] MILLENNIUM Monocytes % 8.1 4.0 - 13.0 % CERNER MILLENNIUM Monocyte Abs 0.8 0.2 - 1.0 x10(3)/mc L CERN[facility] MILLENNIUM Eosinophils % 1.7 0.0 - 7.0 % CERNER MILLENNIUM Eosinophils Abs 0.2 0.0 - 0.5 x10(3)/mc L CERNER MILLENNIUM [...] are noted, a manual differential will be performed.v Fartun Gran Abs 0.01 0.00 - 0.05 x10(3)/mc L [facility] Blood specimen (specimen) 08/13/2010 12:42 PM EST 08/13/2010 12:58 PM EST Sidra Del Toro APRN HEMATOLOGY ORDERA BLES Performing Organization Address [facility]/ZIP Co de Phone Number [facility] * (ABNORMAL) REFLEX LAB-PTH (08/13/2010 12:42 PM EST) PTH 66(H) 15 - 65 pg/mL [facility] Comment: Please note the change in reference range from 10-57 pg/mL to 15-65 pg/mL (11/04/2008). Blood specimen (specimen) 08/13/2010 12:42 PM EST 08/13/2010 12:58 PM EST Sidra Del Toro APRN CHEMISTRY ORDERAB LES Performing Organization Address [facility]/ZIP Co de Phone Number [facility] * (ABNORMAL) VITAMIN D 25 HYDROXY (08/13/2010 12:42 PM EST) 25-Hydroxy D2 <4.0 ng/mL [facility] Comment: Test Performed by: [place] [address] Testing Engineer: Kimberly Antonio, Ph.D. 25-Hydroxy D3 11 ng/mL [facility] Comment: Test Performed by: [place] [address] Testing Engineer: Kimberly Antonio, Ph.D. 25-OH Vit D Total 11(L) ng/mL [facility] Comment: Interpretation: 10-24 (mild to moderate deficiency) -- REFERENCE VALUE -- 25-HYDROXY D TOTAL (D2+D3) Optimum levels in the normal population are 25-80 Test Performed by: [facility] [address], [place] [address] Testing Engineer: Kimberly Antonio, Ph.D. Blood specimen (specimen) 08/13/2010 12:42 PM EST 08/13/2010 2:17 PM EST Sidra Del Toro APRN CHEMISTRY ORDERAB LES Performing Organization Address [facility] Co de Phone Number [facility] * (ABNORMAL) VITAMIN B1, WHOLE BLOOD (08/13/2010 12:42 PM EST) Vit B1 Lvl WB 82(L) 87 - 280 nmol/L [facility] Comment: Test Performed by [facility], [facility], [address] [place] [address] Patricio Jolly M.D., Ph.D., Director of Laboratories , [facility] [id number] Blood specimen (specimen) 08/13/2010 12:42 PM EST 08/13/2010 1:25 PM EST Sidra Del Toro APRN CHEMISTRY ORDERAB LES Performing Organization Address [facility] de Phone Number [facility] * (ABNORMAL) PREALBUMIN (08/13/2010 12:42 PM EST) Prealbumin 14(L) 20 - 40 mg/dL [facility] Comment: Prealbumin levels are generally lower in the pediatric population; adult concentrations are usually attained near puberty. Blood specimen (specimen) 08/13/2010 12:42 PM EST 08/13/2010 12:58 PM EST Sidra Del Toro APRN CHEMISTRY ORDERAB LES Performing Organization Address [facility] Co de Phone Number [facility] * VITAMIN B12 (08/13/2010 12:42 PM EST) Vitamin B-12 789 207 - 974 pg/mL [facility] Blood specimen (specimen) 08/13/2010 12:42 PM EST 08/13/2010 12:58 PM EST Sidra Del Toro APRN CHEMISTRY ORDERAB LES Performing Organization Address City/[facility] Co de Phone Number [facility] * (ABNORMAL) VITAMIN A (08/13/2010 12:42 PM EST) Pathologist [facility] Vitamin A 27.8(L) 32.5 - 78.0 mcg/dL [facility] MILL[facility] Comment: Test Performed by: [place] [address] Testing Engineer: Kimberly Antonio, Ph.D. Blood specimen (specimen) 08/13/2010 12:42 PM EST 08/13/2010 2:17 PM EST Sidra Del Troo APRN CHEMISTRY ORDERAB LES Performing Organization Address [facility] Co de Phone Number [facility] * FOLATE RBC (08/13/2010 12:42 PM EST) Pathologist [facility] Hematocrit 36.8 34.0 - 45.0 % [facility] MILLENNIUM RBC Folate 590 460 - 1500 ng/mL [facility] Blood specimen (specimen) 08/13/2010 12:42 PM EST 08/13/2010 12:58 PM EST Sidra Del Toro APRN CHEMISTRY ORDERAB LES Performing Organization Address [facility]/ZIP Co de Phone Number [facility] MILLENNIUM * (ABNORMAL) COMPREHENSIVE METABOLIC PANEL (NON-FASTING) (08/13/2010 12:42 PM EST) Pathologist [facility] Glucose Lvl 107 <=199 mg/dL [facility] MILLENNIUM Comment:Diabetes: >=200 mg/d L plus symptoms BUN 13 8 - 18 mg/dL [facility] Creatinine 0.69(L) 0.70 - 1.20 mg/dL [facility] MILLENNIUM Sodium 138 135 - 145 mmol/L CERNER [...] 5 - 15 mmol/L [facility] Calcium 9.4 8.5 - 10.5 mg/dL [facility] Total Protein 6.7 6.4 - 8.3 gm/dL [facility] Albumin 4.0 3.2 - 5.2 gm/dL [facility] MILLENNI[facility] AST 21 0 - 30 unit/L [facility] MILL[facility] ALT 19 0 - 30 unit/L [facility]ILL[facility] Alk Phos 105(H) 40 - 104 unit/L [facility] Total Bilirubin 0.1(L) 0.2 - 1.3 mg/dL [facility]ILL[facility]NI[facility] Bili, Direct <0.1 0.0 - 0.3 mg/dL [facility] Estimated GFR >60 >=60 [facility] Comment: The National Kidney Disease Education Program (NKDEP) has recommended all laboratories report estimated GFR (eGFR) along with plasma creatinine measurements to assist you with recognition of early kidney disease. Caveats: ??Plasma creatinine should be at steady-state (unchanged within the past week). ??Patient age > = 18 years, and for Americans multiply eGFR by 1.2. At present, NKDEP does NOT recommend using the MDRD equation for drug dosing purposes and pharmacists should continue to use their current dosing methods. In addition, numerical eGFR values greater than 60 ml/min/1.73 square meters should be treated as > 60, and not an exact number due to greater inaccuracies at these higher values. Per NKDEP, they classify normal renal function as any GFR >60ml/min/1.73 square meters; chronic kidney disease when GFR <60, and renal failure when GFR <15. ??This calculation may not be valid for patients with atypical muscle mass (very lean or obese), acute renal failure, and in patients with diabetic kidney disease. References: http://nkdep.nih.gov/resources/NKDEP_Suggestn4Labs_0606_508.pdf http://www.kidney.org/professionals/kls/pdf/faq_gfr.pdf Blood specimen (specimen) 08/13/2010 12:42 PM EST 08/13/2010 12:58 PM EST Sidra Del Toro HOT SAW OPERATOR CHEMISTRY ORDERAB LES [facility] * (ABNORMAL) IRON AND TIBC (08/13/2010 12:42 PM EST) Iron 21(L) 30 - 150 mcg/dL [facility]NI[facility] TIBC 368 250 - 450 mcg/dL [facility]ILLENNI[facility] Iron Saturation 6(L) 20 - 50 % [facility] MILLENNI[facility] Blood specimen (specimen) 08/13/2010 12:42 PM EST 08/13/2010 12:58 PM EST Sidra Katarina Alverto HOT SAW OPERATOR CHEMISTRY ORDERAB LES Performing Organization Address [facility] de Phone Number [facility] MILLENNIUM * (ABNORMAL) FERRITIN (08/13/2010 12:42 PM EST) Ferritin 12(L) 15 - 150 ng/mL [facility] MILLENNIUM Comment: Pediatric reference ranges not verified at [facility], interpret with caution. Reference ranges for females greater than 50 years of age approach values for men, i.e., 30-400 ng/mL. Blood specimen (specimen) 08/13/2010 12:42 PM EST 08/13/2010 12:58 PM EST Sidra Katarina Alverto HOT SAW OPERATOR CHEMISTRY ORDERAB LES Performing Organization Address [facility]/ZIP Co de Phone Number [facility] * (ABNORMAL) CBC (08/13/2010 12:42 PM EST) WBC 10.2(H) 4.0 - 10.0 x10(3)/mcL C[facility] MILLENNIUM RBC 4.23 3.93 - 5.22 x10(6)/mcL [facility] MILLENNIUM Hemoglobin 11.4 11.2 - 15.7 gm/dL [facility] MILLENNIUM Hematocrit 36.8 34.0 - 45.0 % CERNER MILLENNIUM MCV 87.9 79.0 - 94.0 fL CERNER MILLENNIUM MCH 27.0 26.6 - 32.2 pg CERNER MILLENNIUM MCHC 30.6(L) 32.0 - 36.5 gm/dL [facility] MILLENNIUM Platelets 319 145 - 370 x10(3)/mcL C[facility]ER MILLENNIUM RDWSD 53.9(H) 35.0 - 46.0 fL CERNER MILLENNIUM RDWCV 16.8(H) 10.9 - 14.4 % CERNER MILLENNIUM MPV 9.5 9.0 - 12.0 fL [facility] Blood specimen (specimen) 08/13/2010 12:42 PM EST 08/13/2010 12:58 PM EST Sidra Del Toro APRN HEMATOLOGY ORDERA BLES [facility] documented in this encounter Visit Diagnoses Not on filedocumented in this encounter Care Teams Bow Maker Machine Tender Relationship Specialty Start Date End Date Aman Lawrence [place] [address] [place] [address] PCP - General 06/16/10 06/27/18 documented as of this encounter
--- OUTSIDE RECORDS SUMMARY | 2024-02-22 00:58 | XMS_ITS | Encounter Summary ---
Author Organization [facility] Address [facility] [place] [address] Care Team Providers Care Glass Worker Name Role Phone Aman Lawrence APRN Primary Care Provider [phone] Encounter Details Date Type Department Care Team (Late st Contact Info) Description 08/05/2010 2:30 PM EST Office Visit Functional Shinto Program [place] [address] Bong Cabrera MD [facility] [place] [address] Social History Tobacco Use Types Packs/Day Years Used Date Smoking Tobacco: Never Assessed Sex and Gender Information Value Date Recorded Sex Assigned at Not on file Gender Identity Not on file Sexual Orientation Not on file documented as of this encounter Plan of Treatment Not on file documented as of this encounter Visit Diagnoses Not on filedocumented in this encounter Care Teams Glass Worker Relationship Specialty Start Date End Date Aman Lawrence [place] [address] PCP - General 06/16/10 06/27/18 documented as of this encounter
--- OUTSIDE RECORDS SUMMARY | 2024-02-22 00:58 | XMS_ITS | Encounter Summary ---
Author Organization [facility] Address [facility] [place] [address] Care Team Providers Care Industrial Electrician Journeyman Name Role Phone Aman Lawrence APRN Primary Care Provider [phone] Encounter Details Date Type Department Care Team (Latest Contact Info) Description 11/20/2010 1:44 PM EDT - 11/20/2010 7:55 PM EDT Hospital En[place] [address] Skinny Gomez MD [facility] [place] [address] Discharge Disposition: Home Social History Tobacco Use Types Packs/Day Years Used Date Smoking Tobacco: Every Day Cigarettes Alcohol Use Standard Drinks/Week Comments Not Asked 0 (1 standard drink = 0.6 oz pur e alcohol) Sex and Gender Information Value Date Recorded Sex Assigned at Not on file Gender Identity Not on file Sexual Orientation Not on file documented as of this encounter Medications at Time of Discharge Medication Sig Dispensed Refills Start Date End Date albuterol (PROVENTIL) 5 mg/mL nebulizer solution Take [...] 25M Tablet(s), PO, Once daily 09/23/2010 05/10/2013 QUEtiapine (SEROQUEL) 100 mg tablet 09/23/2010 12/04/2010 b complex vitamins (B COMPLEX-VITAMIN B12) tablet 09/23/2010 11/19/2016 vtxoxlswipmz-qyqb-leon rals (COMPLETE MULTIVITAMIN) Tab tablet 1 Tablet(s), PO, Once daily 09/23/2010 11/19/2016 calcium citrate-vitamin D (CITRACAL+D) 315-200 mg-unit per tablet 2 Tablet(s), PO, Twice daily 09/23/2010 11/19/2016 ergocalciferol (VITAMIN D) 50,000 unit capsule [id number], PO, TWICE a week 09/23/2010 11/19/2016 documented as of this encounter Miscellaneous Notes * Miscellaneous - Provider, Scanning - 11/20/2010 4:02 PM EDT documented in this encounter Plan of Treatment Not on file documented as of this encounter Visit Diagnoses Not on filedocumented in this encounter Care Teams Industrial Electrician Journeyman Relationship Specialty Start Date End Date Aman Lawrence APRN [address] [place] [id number] PCP - General 06/16/10 06/27/18 documented as of this encounter"
--- OUTSIDE RECORDS SUMMARY | 2024-02-22 00:58 | XMS_ITS | Encounter Summary ---
Author Organization [facility] [place] [address] Care Team Providers Care Concrete Worker Name Role Phone Aman Lawrence APRN Primary Care Provider [phone] Encounter Details Date Type Department Care Team (Late st Contact Info) Description 08/07/2010 2:30 PM EST Office Visit Functional Rastafari Program [place] [address] Caroline Hugo STOCK SHEETS CLEANER INSPECTOR [facility] [place] [address] Social History Tobacco Use Types Packs/Day Years Used Date Smoking Tobacco: Never Assessed Sex and Gender Information Value Date Recorded Sex Assigned at Not on file Gender Identity Not on file Sexual Orientation Not on file documented as of this encounter Plan of Treatment Not on file documented as of this encounter Visit Diagnoses Not on filedocumented in this encounter Care Teams Concrete Worker Relationship Specialty Start Date End Date Aman Lawrence APRN [address] [address] PCP - General 06/16/10 06/27/18 documented as of this encounter
--- OUTSIDE RECORDS SUMMARY | 2024-02-22 00:58 | XMS_ITS | Encounter Summary ---
Author Organization [facility] [place] [address] Care Team Providers Care Striping Machine Operator Name Role Phone Aman Lawrence APRN Primary Care Provider [phone] Encounter Details Date Type Department Care Team (Late st Contact Info) Description 08/10/2010 9:40 AM EST Follow-Up Functional Confucianism Program at [facility] [place] [address] Ana Goins, TALKBACK HOST [facility] [place] [address] Social History Tobacco Use Types Packs/Day Years Used Date Smoking Tobacco: Never Assessed Sex and Gender Information Value Date Recorded Sex Assigned at Not on file Gender Identity Not on file Sexual Orientation Not on file documented as of this encounter Plan of Treatment Not on file documented as of this encounter Visit Diagnoses Not on filedocumented in this encounter Care Teams Striping Machine Operator Relationship Specialty Start Date End Date Aman Lawrence [place] [address] PCP - General 06/16/10 06/27/18 documented as of this encounter
--- OUTSIDE RECORDS SUMMARY | 2024-02-22 00:58 | XMS_ITS | Encounter Summary ---
Author Organization [facility] Address [facility] [place] [address] Care Team Providers Care Sculpture Instructor Name Role Phone Aman Lawrence APRN Primary Care Provider [phone] Encounter Details Date Type Department Care Team (Late st Contact Info) Description 08/14/2010 7:55 AM EST Office Visit Functional Uatsdin Program [place] [address] Ananth Sesay, PT [facility] [place] [address] Social History Tobacco Use Types Packs/Day Years Used Date Smoking Tobacco: Never Assessed Sex and Gender Information Value Date Recorded Sex Assigned at Not on file Gender Identity Not on file Sexual Orientation Not on file documented as of this encounter Plan of Treatment Not on file documented as of this encounter Visit Diagnoses Not on filedocumented in this encounter Care Teams Sculpture Instructor Relationship Specialty Start Date End Date [place] [address] PCP - General 06/16/10 06/27/18 documented as of this encounter
--- OUTSIDE RECORDS SUMMARY | 2024-02-22 00:58 | XMS_ITS | Encounter Summary ---
Author Organization [facility] [place] [address] Care Team Providers Care Skin Diving Teacher Name Role Phone Aman Lawrence APRN Primary Care Provider [phone] Encounter Details Date Type Department Care Team (Late st Contact Info) Description 08/13/2010 8:30 AM EST Office Visit Functional Sabianist Program [place] [address] Tawnya Allison Social History Tobacco Use Types [...] on filedocumented in this encounter Care Teams Skin Diving Teacher Relationship Specialty Start Date End [place] [address] PCP - General 06/16/10 06/27/18 documented as of this encounter
--- OUTSIDE RECORDS SUMMARY | 2024-02-22 00:58 | XMS_ITS | Encounter Summary ---
Author Organization [facility] Address [facility] [place] [address] Care Team Providers Care Table Tender Name Role Phone Yisel Marroquin MD Primary Care Provider [phone] Encounter Details Date Type Department Care Team (Late st Contact Info) Description 03/13/2013 Interpretation Only Radiology [address] [facility] [place] [address] Unknown None Social History Tobacco Use Types [...] Comments MRI LUMBAR SPINE WITHOUT CONTRAST Routine 03/13/2013 7:35 AM EDT documented in this encounter Results * MRI Lumbar Spine wo Contrast (Generic) (03/13/2013 7:35 AM EDT) Anatomical Region Laterality Modality L-spine Magnetic Resonan ce 03/13/2013 7:35 AM EDT Narrative 03/13/2013 7:35 AM EDT APD Historical Result Principal Parachute Manufacturing Supervisor: ??BERYL ??BASIM MRI LUMBAR SPINE: CLINICAL HISTORY: ??Low back pain with right radiculopathy. Sagittal and axial images were obtained. The conus shows no definite abnormality. ??A prominent rounded area of increased T1 and T2 signal with associated decreased STIR signal at the L1 vertebral body is normal, compatible with focal fat. Similar finding is noted at the L5 vertebral body and smaller similar areas are noted elsewhere in the lumbar spine. Mild facet joint hypertrophy is noted at multiple levels. L1-2, L2-3, and L3-4 demonstrate no significant disc protrusion, spinal stenosis, or neural foraminal narrowing. L4-5 demonstrates apparent small annular disc bulge. ??No spinal stenosis or neural foramina narrowing is seen. L5/S1 demonstrates an apparent small central disc protrusion. ??No spinal stenosis or gross neural foraminal encroachment is seen. A few small areas of increased T2 signal at the visualized right kidney noted, likely too small to characterize. IMPRESSION: Small central disc protrusion at L5/S1. Beryl Stallworth MD ALBAN/cornelio [id number] CC: Procedure Note Unknown - 01/22/2019 APD Historical Result Principal Parachute Manufacturing Supervisor: BERYL STALLWORTH MRI LUMBAR SPINE: CLINICAL HISTORY: Low back pain with right radiculopathy. Sagittal and axial images were obtained. The conus shows no definite abnormality. A prominent rounded area ofincreased T1 and T2 signal with associated decreased STIR signal at the L1 vertebral body isnormal, compatible with focal fat. Similar finding is noted at the L5 vertebral body and smaller similarareas are noted elsewhere in the lumbar spine. Mild facet joint hypertrophy is noted at multiple levels. L1-2, L2-3, and L3-4 demonstrate no significant disc protrusion, spinalstenosis, or neural foraminal narrowing. L4-5 demonstrates apparent small annular disc bulge. No spinal stenosisor neural foramina narrowing is seen. L5/S1 demonstrates an apparent small central disc protrusion. No spinalstenosis or gross neural foraminal encroachment is seen. A few small areas of increased T2 signal at the visualized right kidneynoted, likely too small to characterize. IMPRESSION: Small central disc protrusion at L5/S1. Beryl Stallworth MD [facility]BAN/cornelio [id number] CC: Unknown IMG MRI ORDERABLES documented in this encounter Visit Diagnoses Not on filedocumented in this encounter Care Teams Table Tender Relationship Specialty Start Date End Date Yisel Marroquin MD [address] [place] [address] PCP - General 11/13/18 03/05/19 documented as of this encounter
--- OUTSIDE RECORDS SUMMARY | 2024-02-22 00:58 | XMS_ITS | Encounter Summary ---
Author Organization [facility] [place] [address] Care Team Providers Care Automobile Inspector Name Role Phone Aman Lawrence APRN Primary Care Provider [phone] Reason for Visit * Reason Onset Date Comments Other 04/21/2011 MAP reorder Encounter Details Date Type Department Care Team (Late st Contact Info) Description 04/21/2011 [place] [id number] Tegan Austin Other (MAP reorder) Social History Tobacco Use Types Packs/Day Years [...] Miscellaneous Notes * Telephone Encounter - Tegan Austin - 04/21/2011 4:56 PM EDT Medication Assistance Program: Jeannie called to request a Lidoderm reorder. I called [employer] and placed an order for Lidoderm Patches (5% #90). Order number [id number] [place] [facility] and[place] arrive within ten business days. I returned Jeannie's call to let her know. documented in this encounter Plan of Treatment Not on file documented as of this encounter Visit Diagnoses Not on filedocumented in this encounter Care Teams Automobile Inspector Relationship Specialty Start Date End Date Aman Lawrence APRN [address] [place] [address] PCP - General 06/16/10 06/27/18 documented as of this encounter
--- OUTSIDE RECORDS SUMMARY | 2024-02-22 00:58 | XMS_ITS | Encounter Summary ---
Author Organization [facility] [address] Care Team Providers Care Prize Fighter Name Role Phone Yisel Marroquin MD Primary Care Provider [phone] Encounter Details Date Type Department Care Team (Late st Contact Info) Description 10/11/2011 Orders Only Radiology and Cardiology Results [address] [place] [id number] Apd Conversion, Results Provider, Social History Tobacco [...] Priority Date/Time Associated Diagnosis Comments TSH Routine 10/11/2011 7:20 AM EDT documented in this encounter Results * (ABNORMAL) TSH (10/11/2011 7:20 AM EDT) TSH 2.38(Exter nal Lab) 0.34 - 5.60 mIU/L [address] DAY CONVERSION 10/11/2011 7:20 AM EDT Results Provider Apd Conversion MD JASON ESTRELLA ORDERABLES [address] CONVERSION documented in this encounter Visit Diagnoses Not on filedocumented in this encounter Care Teams Prize Fighter Relationship Specialty Start Date End Date Yisel Marroquin MD [address] [place] [address] PCP - General General Internal Medicine 03/06/1911/22 documented as of this encounter
--- OUTSIDE RECORDS SUMMARY | 2024-02-22 00:58 | XMS_ITS | Encounter Summary ---
Author Organization [facility] Address [facility] [place] [address] Care Team Providers Care World Travel Counselor Name Role Phone Aman Lawrence APRN Primary Care Provider [phone] Encounter Details Date Type Department Care Team (Late st Contact Info) Description 08/12/2010 7:55 AM EST Office Visit Functional Rastafarian Program [place] [address] Ananth Sesay, PT [facility] [place] [address] Social History Tobacco Use Types Packs/Day Years Used Date Smoking Tobacco: Never Assessed Sex and Gender Information Value Date Recorded Sex Assigned at Not on file Gender Identity Not on file Sexual Orientation Not on file documented as of this encounter Plan of Treatment Not on file documented as of this encounter Visit Diagnoses Not on filedocumented in this encounter Care Teams World Travel Counselor Relationship Specialty Start Date End Date [place] [address] PCP - General 06/16/10 06/27/18 documented as of this encounter
--- OUTSIDE RECORDS SUMMARY | 2024-02-22 00:58 | XMS_ITS | Encounter Summary ---
Author Organization [facility] Address [facility] [place] [address] Care Team Providers Care Power Plant Manager Name Role Phone Aman Lawrence APRN Primary Care Provider [phone] Encounter Details Date Type Department Care Team (Late st Contact Info) Description 08/03/2010 7:55 AM EST Office Visit Functional Mandaen Program [place] [address] Ananth Sesay, PT [facility] [place] [address] Social History Tobacco Use Types Packs/Day Years Used Date Smoking Tobacco: Never Assessed Sex and Gender Information Value Date Recorded Sex Assigned at Not on file Gender Identity Not on file Sexual Orientation Not on file documented as of this encounter Plan of Treatment Not on file documented as of this encounter Visit Diagnoses Not on filedocumented in this encounter Care Teams Power Plant Manager Relationship Specialty Start Date End Date [place] [address] PCP - General 06/16/10 06/27/18 documented as of this encounter
--- OUTSIDE RECORDS SUMMARY | 2024-02-22 00:58 | XMS_ITS | Encounter Summary ---
Author Organization [facility] Address [facility] [place] [address] Care Team Providers Care Furnace Liner Name Role Phone Aman Lawrence APRN Primary Care Provider [phone] Encounter Details Date Type Department Care Team (Late st Contact Info) Description 07/31/2010 2:30 PM EST Office Visit Functional Mandaen Program [place] [address] Bong Cabrera MD [facility] [place] [address] Social History Tobacco Use Types Packs/Day Years Used Date Smoking Tobacco: Never Assessed Sex and Gender Information Value Date Recorded Sex Assigned at Not on file Gender Identity Not on file Sexual Orientation Not on file documented as of this encounter Plan of Treatment Not on file documented as of this encounter Visit Diagnoses Not on filedocumented in this encounter Care Teams Furnace Liner Relationship Specialty Start Date End Date Aman Lawrence [place] [address] PCP - General 06/16/10 06/27/18 documented as of this encounter
--- OUTSIDE RECORDS SUMMARY | 2024-02-22 00:58 | XMS_ITS | Encounter Summary ---
Author Organization [facility] Address [facility] [place] [address] Care Team Providers Care Rn Patient Services Name Role Phone Aman Lawrence APRN Primary Care Provider [phone] Encounter Details Date Type Department Care Team (Late st Contact Info) Description 08/06/2010 7:55 AM EST Office Visit Functional W[place] [address] Ananth Sesay, PT [facility] [place] [address] Social History Tobacco Use Types Packs/Day Years Used Date Smoking Tobacco: Never Assessed Sex and Gender Information Value Date Recorded Sex Assigned at Not on file Gender Identity Not on file Sexual Orientation Not on file documented as of this encounter Plan of Treatment Not on file documented as of this encounter Visit Diagnoses Not on filedocumented in this encounter Care Teams Rn Patient Services Relationship Specialty Start Date End Date [place] [address] PCP - General 06/16/10 06/27/18 documented as of this encounter
--- OUTSIDE RECORDS SUMMARY | 2024-02-22 00:58 | XMS_ITS | Encounter Summary ---
Author Organization [facility] Address [facility] [place] [address] Care Team Providers Care Tunnel Worker Name Role Phone Yisel Marroquin MD Primary Care Provider [phone] Encounter Details Date Type Department Care Team (Late st Contact Info) Description 11/10/2011 Interpretation Only Radiology 1 [facility] [place] [address] Unknown None Social History Tobacco Use Types [...] Date/Time Associated Diagnosis Comments MAMMO SCREENING CAD BILATERAL Routine 11/10/2011 7:42 AM EDT documented in this encounter Results * Mammo Screening Cad Bilateral (11/10/2011 7:42 AM EDT) Anatomical Region Laterality Modality Breast Bilateral Mammography 11/10/2011 7:42 AM EDT Narrative 11/10/2011 7:42 AM EDT APD Historical Result Principal Personnel Training Officer: ??ISAK ??ESCHBACH DIRECT-DIGITAL SCREENING MAMMOGRAM: COMPARISON: ??August 06, 2007. ??June 13, 2006. Interpretation is made with the benefit of CAD. The examination consists of bilateral CC and MLO views. Breast composition is predominately fatty. There are no suspicious clusters of microcalcifications, suspicious masses, or areas of architectural distortion to suggest malignancy. IMPRESSION: ACR 1 - NEGATIVE MAMMOGRAM / A12. Isak Benavides DO [facility] [id number] CC: Procedure Note Unknown - 01/23/2019 APD Historical Result Principal Personnel Training Officer: ISAK BENAVIDES DIRECT-DIGITAL SCREENING MAMMOGRAM: COMPARISON: August 06, 2007. June 13, 2006. Interpretation is made with the benefit of CAD. The examination consists of bilateral CC and MLO views. Breast composition is predominately fatty. There are no suspicious clusters of microcalcifications, suspiciousmasses, or areas of architectural distortion to suggest malignancy. IMPRESSION: ACR 1 - NEGATIVE MAMMOGRAM / A12. Isak Benavides DO [facility] [id number] CC: Unknown IMG MAMMO ORDERABLES documented in this encounter Visit Diagnoses Not on filedocumented in this encounter Care Teams Tunnel Worker Relationship Specialty Start Date End Date Yisel Marroquin MD [address] [facility] [place] [address] PCP - General 11/13/18 03/05/19 documented as of this encounter
--- OUTSIDE RECORDS SUMMARY | 2024-02-22 00:58 | XMS_ITS | Encounter Summary ---
Author Organization [facility] [place] [address] Care Team Providers Care Generation Technologist Name Role Phone Aman Lawrence APRN Primary Care Provider +1 [phone] Reason for Visit * Reason Comments Obesity Encounter Details Date Type Department Care Team (Late st Contact Info) Description 11/11/2010 9:00 AM EDT Follow-[place] [address] Sidra Del Toro BUSINESS ENGLISH INSTRUCTOR [facility] [place] [address] Bariatric surgery status; Vitamin D deficiency; Hyperparathyroidism , secondary, non-renal; Iron deficiency; Vitamin B 12 deficiency; Thiamin deficiency Discharge Disposition: Home Social History Tobacco Use [...] Sign Reading Time Taken Comments Blood Pressure 149/88 11/11/2010 8:29 AM EDT Pulse 58 11/11/2010 8:29 AM EDT Temperature 36.7 ??C (98.1 ??F) 11/11/2010 8:29 AM ED T Respiratory Rate 18 11/11/2010 8:29 AM EDT Oxygen Saturation 98% 11/11/2010 8:29 AM EDT Inhaled Oxygen Concentration - - Weight 107.6 kg (237 lb 3.2 oz) 11/11/2010 8:29 AM EDT Height 162.6 cm (5' 4) 11/11/2010 8:29 AM EDT Body Mass Index 40.72 11/11/2010 8:29 AM EDT documented in this encounter Patient Instructions * Patient Instructions* Sidra Del Toro T - 11/11/2010 9:20 AM EDT BSP Admin coordinator Rhonda: [phone] Dietitians: [phone] Surgeons/ nurse practitioner: [phone] Nurse line: [phone] Follow up: will discuss after your upper endoscopy Testing: Labwork: today Please note that labwork results from non-[facility] labs take longer to get results. Please remind the landscape and yardwork laborer that certain test tubes need to be protected from light, as indicated on the requisition. If you have not received results within 2 weeks of testing, please call Rhonda. Other: Upper endoscopy. Do not eat solid food for 8 hours before the procedure. You may have clear liquids, such as water, SF popsicles, broth, small amounts of unsweetened apple juice for up to 2 hours before the procedure. Park in the Parking Garage. Go to [facility] 4[facility] Prescription Medications: will be sent to the pharmacy of your choice, pending lab results Vitamins: The following vitamins are recommended: Multivitamin with minerals once daily Vitamin B12 500 mcg by mouth once daily Calcium citrate 600 mg with Vitamin D 400 units twice daily (600 mg in AM and 600 mg in PM) only ifyou have had gastric bypass, or are post-menopausal Iron with Vitamin C, 50-66 mg once daily (take iron with vitamin C 250 mg to help with absorption) only if you have regular periods, iron deficiency or anemia. Nutrition recommendations: - Your Daily Goals: 1,000-1,200 calories per day (300 calories per meal, 100 calories per snack, 1-2 snacks per day) 60 grams per day (20 grams per meal) 48-64 oz of non-caloric and hydrating fluids per day (6-8, 8 oz cups) Activity: Aim for 30 minutes of exercise daily, 5 days a week of both cardio and strength training exercises. Call us: If you have concerns. If you have unexplained abdominal pain. if you see blood in your stool or vomit blood If you have prolonged vomiting Post Surgery Support Group: Our post surgery support group meets on the first Tuesday of every month from 1-2 PM at [facility] documented in this encounter Progress Notes * Sidra Del Toro - 11/11/2010 9:07 AM EDT BARIATRIC SURGERY PROGRAM Reason for visit: follow up multiple deficiencies. She is S/P partitioned, non- divided Genesis en Y gastric bypass on 05/12/00 Complications summary: Early unknown Late none Visits summary: Compliance with follow up: poor, no show to previously scheduled visits Visit date Wt (lbs) BMI Pre-op 06/08/99 299 51.8 HT: 64 WT 305 on 08/21/99 Post-op %EBW lost Supplement compliance Labwork 08/13/10 248 42.5 30 multi only Hg 11.4 Hct 36.8 ferritin 12 iron 21 sat 6 B12 789 Nl fol. A 27 B1 82 Nl CMP PTH 66 D 11 Prealb 14 11/11/10 237 40.7 37 good pending Post op wt history: 222 pounds on 02/20/01, 238 pounds on 03/30/02, 242 pounds on 10/04/02, 255 pounds on 10/22/03, 263 pounds on 05/26/05, 222 pounds on 10/11/05 Date Evaluation Results 09/04 Primary care never Colonoscopy Mammogram 2 years ago - Pap CHIP 11/07/02 DEXA normal Problem list: - Pre-operative Class IV obesity BMI 51.8: improved, S/P gastric bypass - Hypertension: current treatment with Prazosin - GERD: stable on Nexium - Type 2 diabetes: no current treatment - Hypothyroidism - Psychological issues: continues to be stable with regular counseling bekah Allen Kathleen alden in [facility] a. anxiety and panic disorder b. history of depression c. Borderline Personality d/o d. history of self mutilation (burning skin)-denies since 2004 e. PTSD f. hospitalizations in 1993 for suicide attempt, 2005 for severe anxiety g. schizophrenia - Polysubstance abuse in remission- no alcohol in 14 years - History of bulimia- no purging in 4 years - Nonepileptic seizures - Hidradenitis suppurativa treated with antibiotics - COPD - Tobacco dependence: current 1 PPD cigarettes a day, started at age 11-high of 2.5 packs a day Past surgical history: - Open Genesis en Y gastric bypass 05/12/00 - Panniculectomy 05/12/00 - Open cholecystectomy ~1991 - CHIP/BSO 1985 in [place] for ovarian cyst - Complete dental extractions 1998 - T &A Subjective: HPI Patient concerns at today's visit: she is doing well, and would like to proceed with revision surgery. She has been compliant with her vitamin and mineral supplements. She reports that she is planning to quit tobacco on 11/24 Review of Systems (negative if left blank): Constitutional: [] fatigue [] pica Neurologic: [] paresthesias GI: [] GERD, dysphagia [] dumping [] abdominal pain, hernia [] nausea/vomiting [] blood in stool [] chronic diarrhea/ constipation ENTERPRISE SYSTEMS ENGINEER: [] LMP: [] control [] menorrhagia [+] menopause 1985 Skin: [+] redundant skin [+] chronic rashes breasts and abdomen Heme/Lymph: [] excessive bruising [] blood donor in past year Psychiatric [] mental health concerns Health-related habits/other: Exercise/activity level: active, as per RD note Tobacco: 1 PPD Alcohol: none Dietary history: See dietitian note. Objective: Physical Exam Objective: General: looks well. Abdomen: soft, non-tender. Trocar sites well-healed, without evidence of hernia. Extremities: no edema Vital signs: Vitals 11/11/2010 SYSTOLIC 149 DIASTOLIC 88 PULSE 58 TEMPERATURE 98.1 RESPIRATIONS 18 HEIGHT 5' 4 WEIGHT 237 lb 3.2 oz BODY MASS INDEX 40.70 kg/m2 Assessment and Plan: Assessment: S/P gastric bypass with staple line breakdown, multiple vitamin and mineral deficiencies Plan: 1. Next BSP follow up: after EGD 2. Next labwork: requested, not done by patient at today's visit 3. Additional vitamin and mineral supplement recommendations (*in addition to routine bariatric supplements, as noted below): pending labwork 4. dietary/ exercise recommendations per RD Potential late complications following gastric bypass reviewed: vitamin and mineral deficiencies, ulcer, small bowel obstruction and internal hernia. ??WATSON?? was advised that any prolonged abdominal pain should be evaluated. She was provided with a Bariatric Program Summary report which included the above recommendations, as well as information on vitamin and mineral supplementation, fluids, exercise and support group meetings. She has had an opportunity to have all questions answered and is in agreement with the plan of care. She is aware that she can call the Bariatric Surgery Program at any time with questions or concerns. RECOMMENDED BARIATRIC SURGERY PROGRAM FOLLOW-UP AFTER GASTRIC BYPASS: Follow up: done at 4,12 and 18 months, 2 years and yearly thereafter. High risk patients are [...] or those with DORIAN Labwork: CBC, ferritin, iron (transferrin) saturation, iron, RBC folate, Vitamins A, B1, B12, D (25hydroxy only), Intact PTH and comprehensive metabolic profile done at 4 month and yearly visits. Iflabwork is done by the primary acute care physical therapist: please send a copy to the Bariatric Surgery Program,General Surgery Clinic, [facility], attention Sidra Del Toro APRN. Plastic Surgery Clinic evaluation for skin redundancy: done no sooner than 18 months post-operatively when weight loss has been stable for a few months. In general, patients with a BMI >30-35 are not considered candidates due to increased risk of complications unless there are compelling health concerns. Questions regarding [facility] Bariatric Surgery Program patients: please call Jorge Del Toro APRN at [phone] or [phone] beeper [phone]. documented in this encounter Plan of Treatment Not on file documented as of this encounter Procedures Procedure Name Priority Date/Time Associated Diagnosis Comments UPPER GI ENDOSCOPY Routine 11/11/2010 9:28 AM EDT Bariatric surgery status Iron deficiency documented in this encounter Visit Diagnoses Diagnosis Bariatric surgery status Vitamin D deficiency Unspecified vitamin D deficiency Hyperparathyroidism , secondary, non-renal Secondary hyperparathyroidism, non-renal Iron deficiency Iron deficiency anemia, unspecified Vitamin B 12 deficiency Other B-complex deficiencies Thiamin deficiency Other and unspecified manifestations of thiamine deficiency documented in this encounter Care Teams Generation Technologist Relationship Specialty Start Date End Date Aman Lawrence APRN [address] [place] [address] PCP - General 06/16/10 06/27/18 documented as of this encounter
--- OUTSIDE RECORDS SUMMARY | 2024-02-22 00:58 | XMS_ITS | Encounter Summary ---
Author Organization [facility] [place] [address] Care Team Providers Care Cephalometric Analyst Name Role Phone Aman Lawrence APRN Primary Care Provider +1 [phone] Encounter Details Date Type Department Care Team (Late st Contact Info) Description 09/23/2010 9:00 AM EST Office [place] [address] Bong Cabrera MD [facility] [place] [address] Discharge Disposition: Home Social History Tobacco Use [...] on filedocumented in this encounter Care Teams Cephalometric Analyst Relationship Specialty Start Date End Date Aman Lawrence [place] [address] [place] [address] PCP - General 06/16/10 06/27/18 documented as of this encounter
--- OUTSIDE RECORDS SUMMARY | 2024-02-22 00:58 | XMS_ITS | Encounter Summary ---
Author Organization [facility] [place] [address] Care Team Providers Care Butter Fat Tester Name Role Phone Aman Lawrence APRN Primary Care Provider +1 [phone] Encounter Details Date Type Department Care Team (Late st Contact Info) Description 08/05/2010 9:00 AM EST Office Visit Functional Latter-Day Program [place] [address] Tawnya Allison Social History Tobacco Use Types [...] on filedocumented in this encounter Care Teams Butter Fat Tester Relationship Specialty Start Date End [place] [address] PCP - General 06/16/10 06/27/18 documented as of this encounter
--- OUTSIDE RECORDS SUMMARY | 2024-02-22 00:58 | XMS_ITS | Encounter Summary ---
Author Organization [facility] Address [facility] [place] [address] Care Team Providers Care Group Fitness Instructor Name Role Phone Aman Lawrence APRN Primary Care Provider +1 -[phone] Encounter Details Date Type Department Care Team (Late st Contact Info) Description 08/11/2010 7:55 AM EST Office Visit Functional Catholic Program [place] [address] Ananth Sesay, PT [facility] [address] Social History Tobacco Use Types Packs/Day Years Used Date Smoking Tobacco: Never Assessed Sex and Gender Information Value Date Recorded Sex Assigned at Not on file Gender Identity Not on file Sexual Orientation Not on file documented as of this encounter Plan of Treatment Not on file documented as of this encounter Visit Diagnoses Not on filedocumented in this encounter Care Teams Group Fitness Instructor Relationship Specialty Start Date End Date [place] [address] PCP - General 06/16/10 06/27/18 documented as of this encounter
--- OUTSIDE RECORDS SUMMARY | 2024-02-22 00:58 | XMS_ITS | Encounter Summary ---
Author Organization [facility] [place] [address] Care Team Providers Care Voting Machine Repairer Name Role Phone Aman Lawrence APRN Primary Care Provider +1 -[phone] Encounter Details Date Type Department Care Team (Late st Contact Info) Description 08/07/2010 9:00 AM EST Office Visit Functional Denominational Program [place] [address] Tawnya Allison Social History Tobacco Use Types [...] on filedocumented in this encounter Care Teams Voting Machine Repairer Relationship Specialty Start Date End [place] [address] PCP - General 06/16/10 06/27/18 documented as of this encounter
--- OUTSIDE RECORDS SUMMARY | 2024-02-22 00:58 | XMS_ITS | Encounter Summary ---
Author Organization [facility] [place] [address] Care Team Providers Care Rivet Tester Name Role Phone Aman Lawrence APRN Primary Care Provider +1 [phone] Encounter Details Date Type Department Care Team (Late st Contact Info) Description 12/04/2010 Surgery [place] [address] Kasia Crouch MD [facility] [place] [address] UPPER GI ENDOSCOPY Social History Tobacco Use Types Packs/Day Years [...] vitamins (B COMPLEX-VITAMIN B12) tablet 09/23/2010 11/19/2016 cpfbnwssnryh-vxgx-ycft rals (COMPLETE MULTIVITAMIN) Tab tablet 1 Tablet(s), PO, Once daily 09/23/2010 11/19/2016 calcium citrate-vitamin D (CITRACAL+D) 315-200 mg-unit per tablet 2 Tablet(s), PO, Twice daily 09/23/2010 11/19/2016 ergocalciferol (VITAMIN D) 50,000 unit capsule [id number], PO, TWICE a week 09/23/2010 11/19/2016 documented as of this encounter Miscellaneous Notes * Miscellaneous - Provider, Scanning - 12/04/2010 3:33 PM EDT documented in this encounter Plan of Treatment Not on file documented as of this encounter Procedures Procedure Name Priority Date/Time Associated Diagnosis Comments UPPER GI ENDOSCOPY Iron deficiency Bariatric surgery status documented in this encounter Visit Diagnoses Diagnosis Iron deficiency Iron deficiency anemia, unspecified Bariatric surgery status documented in this encounter Administered Medications [...] RN) documented in this encounter Care Teams Rivet Tester Relationship Specialty Start Date End Date Aman Lawrence APRN [address] [place] [address] PCP - General 06/16/10 06/27/18 documented as of this encounter
--- OUTSIDE RECORDS SUMMARY | 2024-02-22 00:58 | XMS_ITS | Encounter Summary ---
Author Organization [facility] [place] [address] Care Team Providers Care Senior Oracle Database Administrator Name Role Phone Aman Lawrence APRN Primary Care Provider +1 -[phone] Encounter Details Date Type Department Care Team (Late st Contact Info) Description 08/10/2010 9:00 AM EST Office Visit Functional Anabaptism Program [place] [address] Tawnya Allison Social History Tobacco Use Types [...] filedocumented in this encounter Care Teams Senior Oracle Database Administrator Relationship Specialty Start Date End [place] [address] PCP - General 06/16/10 06/27/18 documented as of this encounter
--- OUTSIDE RECORDS SUMMARY | 2024-02-22 00:58 | XMS_ITS | Encounter Summary ---
Author Organization [facility] [place] [address] Care Team Providers Care Deep Well Contractor Name Role Phone Aman Lawrence APRN Primary Care Provider +1 -[phone] Encounter Details Date Type Department Care Team (Latest Contact Info) Description 08/24/2010 7:32 AM EST - 08/24/2010 11:59 PM EST Hospital Encounter XRay at [address] [place] [address] Skinny Gomez MD [facility] [place] [address] Discharge Disposition: Home Social History Tobacco Use [...] on filedocumented in this encounter Care Teams Deep Well Contractor Relationship Specialty Start Date End Date Aman Lawrence [place] [address] PCP - General 06/16/10 06/27/18 documented as of this encounter
--- OUTSIDE RECORDS SUMMARY | 2024-02-22 00:58 | XMS_ITS | Encounter Summary ---
Author Organization [facility] Address [facility] [place] [address] Care Team Providers Care Engineering Production Worker Name Role Phone Aman Lawrence APRN Primary Care Provider +1 -[phone] Encounter Details Date Type Department Care Team (Late st Contact Info) Description 08/11/2010 2:30 PM EST Office Visit Functional Muslim Program [place] [address] Bong Cabrera MD [facility] [place] [address] Social History Tobacco Use Types Packs/Day Years Used Date Smoking Tobacco: Never Assessed Sex and Gender Information Value Date Recorded Sex Assigned at Not on file Gender Identity Not on file Sexual Orientation Not on file documented as of this encounter Plan of Treatment Not on file documented as of this encounter Visit Diagnoses Not on filedocumented in this encounter Care Teams Engineering Production Worker Relationship Specialty Start Date End Date Aman Lawrence [place] [address] PCP - General 06/16/10 06/27/18 documented as of this encounter
--- OUTSIDE RECORDS SUMMARY | 2024-02-22 00:58 | XMS_ITS | Encounter Summary ---
Author Organization [facility] [place] [address] Care Team Providers Care Senior Trial Attorney Name Role Phone Aman Lawrence APRN Primary Care Provider +1 -[phone] Encounter Details Date Type Department Care Team (Late st Contact Info) Description 08/03/2010 8:00 AM EST Office Visit Functional Anglican Program [place] [address] Tawnya Allison Social History Tobacco Use Types [...] filedocumented in this encounter Care Teams Senior Trial Attorney Relationship Specialty Start Date End [place] [address] PCP - General 06/16/10 06/27/18 documented as of this encounter
--- OUTSIDE RECORDS SUMMARY | 2024-02-22 00:58 | XMS_ITS | Encounter Summary ---
[place] [address] Care Team Providers Care Senior Bioinformatics Specialist Name Role Phone Yisel Marroquin MD Primary Care Provider Encounter Details Date Type Department Care Team (Late st Contact Info) Description 10/11/2011 Orders Only Radiology and Cardiology Results [address] [place] [id number] Apd Conversion, Results Provider, Social History Tobacco [...] Date/Time Associated Diagnosis Comments HEMOGLOBIN A1C Routine 10/11/2011 documented in this encounter Results * (ABNORMAL) Hemoglobin A1c (10/11/2011) Est Avg Gluc 130.3(ExtH ) 82.5 - 116.9 KORI FLORES DAY CONVERSION Hemoglobin A1C 6.2(ExtH) 4.5 - 5.7 KORI FLORES DAY CONVERSION 10/11/2011 Results Provider Apd Conversion MD JASON ESTRELLA ORDERABLES KORI CONVERSION documented in this encounter Visit Diagnoses Not on filedocumented in this encounter Care Teams Senior Bioinformatics Specialist Relationship Specialty Start Date End Date Yisel Marroquin MD [address] [place] [address] PCP - General 11/13/18 03/05/19 documented as of this encounter
--- OUTSIDE RECORDS SUMMARY | 2024-02-22 00:58 | XMS_ITS | Encounter Summary ---
Author Organization [facility] [place] [address] Care Team Providers Care Cell Biologist Name Role Phone Aman Lawrence APRN Primary Care Provider +1 [phone] Encounter Details Date Type Department Care Team (Late st Contact Info) Description 07/31/2010 9:00 AM EST Office Visit Functional Pentecostal Program [place] [address] Tawnya Allison Social History Tobacco Use Types [...] on filedocumented in this encounter Care Teams Cell Biologist Relationship Specialty Start Date End [place] [address] PCP - General 06/16/10 06/27/18 documented as of this encounter
--- OUTSIDE RECORDS SUMMARY | 2024-02-22 00:58 | XMS_ITS | Encounter Summary ---
Author Organization [facility] [place] [address] Care Team Providers Care Submarine Diver Name Role Phone Aman Lawrence APRN Primary Care Provider +1 [phone] Encounter Details Date Type Department Care Team (Late st Contact Info) Description 08/03/2010 2:30 PM EST Office Visit Functional Hinduism Program [place] [address] Caroline Hugo FOUNTAIN BRUSH ASSEMBLER [facility] [address] Social History Tobacco Use Types Packs/Day Years Used Date Smoking Tobacco: Never Assessed Sex and Gender Information Value Date Recorded Sex Assigned at Not on file Gender Identity Not on file Sexual Orientation Not on file documented as of this encounter Plan of Treatment Not on file documented as of this encounter Visit Diagnoses Not on filedocumented in this encounter Care Teams Submarine Diver Relationship Specialty Start Date End Date Aman Lawrence [place] [address] PCP - General 06/16/10 06/27/18 documented as of this encounter
--- OUTSIDE RECORDS SUMMARY | 2024-02-22 00:58 | XMS_ITS | Encounter Summary ---
Author Organization [facility] [place] [address] Care Team Providers Care Expedition Supervisor Name Role Phone Aman Lawrence APRN Primary Care Provider +1 -[phone] Encounter Details Date Type Department Care Team (Late st Contact Info) Description 08/06/2010 9:00 AM EST Office Visit Functional Restorationist Program [place] [address] Tawnya Allison Social History Tobacco Use Types [...] on filedocumented in this encounter Care Teams Expedition Supervisor Relationship Specialty Start Date End [place] [address] PCP - General 06/16/10 06/27/18 documented as of this encounter
--- OUTSIDE RECORDS SUMMARY | 2024-02-22 00:58 | XMS_ITS | Encounter Summary ---
Author Organization [facility] [place] [address] Care Team Providers Care Internal Revenue Agent Name Role Phone Aman Lawrence APRN Primary Care Provider [phone] [phone] Encounter Details Date Type Department Care Team (Late st Contact Info) Description 08/06/2010 2:30 PM EST Office Visit Functional Congregation Program [place] [address] Caroline Hugo RAIL MAINTENANCE WORKER [facility] [place] [address] Social History Tobacco Use Types Packs/Day Years Used Date Smoking Tobacco: Never Assessed Sex and Gender Information Value Date Recorded Sex Assigned at Not on file Gender Identity Not on file Sexual Orientation Not on file documented as of this encounter Plan of Treatment Not on file documented as of this encounter Visit Diagnoses Not on filedocumented in this encounter Care Teams Internal Revenue Agent Relationship Specialty Start Date End Date Aman Lawrence APRN [address] [address] PCP - General 06/16/10 06/27/18 documented as of this encounter
--- OUTSIDE RECORDS SUMMARY | 2024-02-22 00:58 | XMS_ITS | Encounter Summary ---
Author Organization Formerly [facility], [facility] Address [facility] [place] [address] Care Team Providers Care Wage Analyst Name Role Phone Aman Lawrence APRN Primary Care Provider [phone] Encounter Details Date Type Department Care Team (Latest Contact Info) Description 08/14/2010 1:25 PM EST Procedure visit Functional Buddhist Program [place] [address] Bong Cabrera MD [facility] [address] Discharge Disposition: Home Social History Tobacco Use [...] on filedocumented in this encounter Care Teams Wage Analyst Relationship Specialty Start Date End Date Aman Lawrence [place] [address] PCP - General 06/16/10 06/27/18 documented as of this encounter
--- OUTSIDE RECORDS SUMMARY | 2024-02-22 00:58 | XMS_ITS | Encounter Summary ---
Author Organization [facility] Address [facility] [place] [address] Care Team Providers Care Union Contract Representative Name Role Phone Aman Lawrence APRN Primary Care Provider [phone] Encounter Details Date Type Department Care Team (Late st Contact Info) Description 08/07/2010 7:55 AM EST Office Visit Functional Pentecostal Program [place] [address] Ananth Sesay, PT [facility] [place] [address] Social History Tobacco Use Types Packs/Day Years Used Date Smoking Tobacco: Never Assessed Sex and Gender Information Value Date Recorded Sex Assigned at Not on file Gender Identity Not on file Sexual Orientation Not on file documented as of this encounter Plan of Treatment Not on file documented as of this encounter Visit Diagnoses Not on filedocumented in this encounter Care Teams Union Contract Representative Relationship Specialty Start Date End Date [place] [address] PCP - General 06/16/10 06/27/18 documented as of this encounter
--- OUTSIDE RECORDS SUMMARY | 2024-02-22 00:58 | XMS_ITS | Encounter Summary ---
Author Organization [facility] Address [facility] [place] [address] Care Team Providers Care Cereal Chemist Name Role Phone Aman Lawrence APRN Primary Care Provider [phone] Encounter Details Date Type Department Care Team (Late st Contact Info) Description 08/13/2010 7:55 AM EST Office Visit Functional Jehovah'S Witness Program [place] [address] Ananth Sesay, PT [facility] [address] Social History Tobacco Use Types Packs/Day Years Used Date Smoking Tobacco: Never Assessed Sex and Gender Information Value Date Recorded Sex Assigned at Not on file Gender Identity Not on file Sexual Orientation Not on file documented as of this encounter Plan of Treatment Not on file documented as of this encounter Visit Diagnoses Not on filedocumented in this encounter Care Teams Cereal Chemist Relationship Specialty Start Date End Date [place] [id number] PCP - General 06/16/10 06/27/18 documented as of this encounter
--- OUTSIDE RECORDS SUMMARY | 2024-02-22 00:59 | XMS_ITS | Encounter Summary ---
Author Organization Formerly [facility] [place] [address] Care Team Providers Care Control Equipment Electrician Name Role Phone Aman Lawrence APRN Primary Care Provider [phone] Encounter Details Date Type Department Care Team (Late st Contact Info) Description 07/29/2010 9:00 AM EST Office Visit Functional Baptist Program [place] [address] Tawnya Allison Social History Tobacco Use Types [...] on filedocumented in this encounter Care Teams Control Equipment Electrician Relationship Specialty Start Date End Date [place] [address] PCP - General 06/16/10 06/27/18 documented as of this encounter
--- OUTSIDE RECORDS SUMMARY | 2024-02-22 00:59 | XMS_ITS | Encounter Summary ---
[place] [address] Care Team Providers Care Film Developer Name Role Phone Unavailable Primary Care Provider Unavailabl e Encounter Details Date Type Department Care Team (Late st Contact Info) Description 05/28/2010 2:00 PM EDT Office [place] [address] Anabell Simpson, PT Social History Tobacco Use Types Packs/Day Years [...]
--- OUTSIDE RECORDS SUMMARY | 2024-02-22 00:59 | XMS_ITS | Encounter Summary ---
Author Organization [facility] [place] [address] Care Team Providers Care Media Law Faculty Member Name Role Phone Yisel Marroquin MD Primary Care Provider Encounter Details Date Type Department Care Team (Late st Contact Info) Description 08/17/2005 Orders Only Radiology and Cardiology Results [address] [place] [id number] Apd Conversion, Results Provider, Social History Tobacco [...] Date/Time Associated Diagnosis Comments HEMOGLOBIN A1C Routine 08/17/2005 9:24 AM EST documented in this encounter Results * (ABNORMAL) Hemoglobin A1c (08/17/2005 9:24 AM EST) Hemoglobin A1C 5.9(ExtH) 4.5 - 5.7 % KORI FLORES DAY CONVERSION Hemoglobin 16.8(Exter nal Lab) g/dL KORI FLORES DAY CONVERSION 08/17/2005 9:24 AM EST Results Provider Apd Conversion MD JASON ESTRELLA ORDERABLES KORI GARCIA CONVERSION documented in this encounter Visit Diagnoses Not on filedocumented in this encounter Care Teams Media Law Faculty Member Relationship Specialty Start Date End Date Yisel Marroquin MD [address] [place] [address] PCP - General General Internal Medicine 03/06/1911/22 documented as of this encounter
--- OUTSIDE RECORDS SUMMARY | 2024-02-22 00:59 | XMS_ITS | Encounter Summary ---
Author Organization [facility] Address [facility] [place] [address] Care Team Providers Care Contract Lead Name Role Phone Yisel Marroquin MD Primary Care Provider [phone] Encounter Details Date Type Department Care Team (Late st Contact Info) Description 05/19/2009 Interpretation Only Radiology 1 [facility] [place] [address] Unknown None Social History Tobacco Use Types [...] Comments MRI CERVICAL SPINE WO CONTRAST Routine 05/19/2009 10:20 AM EDT documented in this encounter Results * MRI Cervical Spine wo Contrast (Generic) (05/19/2009 10:20 AM EDT) Anatomical Region Laterality Modality C-spine Magnetic Resonan ce 05/19/2009 10:2 0 AM EDT Narrative 05/19/2009 10:20 AM EDT APD Historical Result Principal Heliotherapist: ??TEGAN ??CRIS MR OF THE CERVICAL SPINE: At 1.5 raz, multiplanar imaging is obtained through the cervical spine utilizing both short and long TR pulse sequences. ??Examination is performed in a 46-year-old female with neck pain and bilateral arm tingling. FINDINGS: Sagittal imaging reveals very mild reversal of the normally expected cervical lordosis extending from C4 through C6 vertebra. ??The vertebral bodies are otherwise well aligned. ??They are normal in height. ??Aberrant signal as commonly accompanies degenerative disc disease is identified adjacent to the C5-C6 disc space. There is narrowing of the C6-C7 disc. ??All the visualized discs are of diminished signal intensity on long TR imaging indicating disc desiccation. Axial imaging at C2-C3 reveals no evidence of disc herniation or central or foraminal stenosis. ??Axial imaging at C3-C4 reveals no evidence of disc herniation or central or foraminal stenosis. Axial imaging at C4-C5 reveals a mild bulge of the annulus fibrosus. However, there is no resultant central or foraminal stenosis. Axial imaging at C5-C6 reveals a large central disc herniation with associated marginal osteophytic spurring. ??These combined to result in severe central spinal stenosis. ??There is encroachment on the neural foramina bilaterally as well. Axial imaging at C6-C7 reveals a mild bulge of the annulus fibrosus with resultant mild central spinal stenosis. ??The neural foramina are encroached upon bilaterally. Axial imaging at C7-T1 reveals no evidence of disc herniation or central or foraminal stenosis. The spinal cord, despite severe impingement at C5-C6, and lesser impingement at C6-C7 is normal in signal throughout. 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 ?? (2) Lesser central spinal stenosis at C6-C7 due to bulging of the annulus fibrosus. Tegan Lynch MD KG/ma [id number] CC: Procedure Note Unknown - 01/22/2019 APD Historical Result Principal Heliotherapist: TEGAN LYNCH MR OF THE CERVICAL SPINE: At 1.5 raz, multiplanar imaging is obtained through the cervical spineutilizing both short and long TR pulse sequences. Examination is performed in a [id number] with neck pain and bilateral arm tingling. FINDINGS: Sagittal imaging reveals very mild reversal of the normally expectedcervical lordosis extending from C4 through C6 vertebra. The vertebral bodies are otherwisewell aligned. They are normal in height. Aberrant signal as commonly accompanies degenerative disc diseaseis identified adjacent to the C5-C6 disc space. There is narrowing of the C6-C7 disc. All the visualized discs are ofdiminished signal intensity on long TR imaging indicating disc desiccation. Axial imaging at C2-C3 reveals no evidence of disc herniation or centralor foraminal stenosis. Axial imaging at C3-C4 reveals no evidence of disc herniation or centralor foraminal stenosis. Axial imaging at C4-C5 reveals a mild bulge of the annulus fibrosus.However, there is no resultant central or foraminal stenosis. Axial imaging at C5-C6 reveals a large central disc herniation withassociated marginal osteophytic spurring. These combined to result in severe central spinalstenosis. There is encroachment on the neural foramina bilaterally as well. Axial imaging at C6-C7 reveals a mild bulge of the annulus fibrosus withresultant mild central spinal stenosis. The neural foramina are encroached upon bilaterally. Axial imaging at C7-T1 reveals no evidence of disc herniation or centralor foraminal stenosis. The spinal cord, despite severe impingement at C5-C6, and lesserimpingement at C6-C7 is normal in signal throughout. IMPRESSION: (1) Central disc herniation resulting in severe central spinalstenosis at C5-C6. (2) Lesser central spinal stenosis at C6-C7 due to bulging of the annulusfibrosus. Tegan Lynch MD KG/ma [id number] CC: Unknown IMG MRI ORDERABLES documented in this encounter Visit Diagnoses Not on filedocumented in this encounter Care Teams Contract Lead Relationship Specialty Start Date End Date Yisel Marroquin MD [address] [place] [address] PCP - General 11/13/18 03/05/19 documented as of this encounter
--- OUTSIDE RECORDS SUMMARY | 2024-02-22 00:59 | XMS_ITS | Encounter Summary ---
Author Organization [facility] Address [facility] [place] [address] Care Team Providers Care Recovery Manager Name Role Phone Aman Lawrence APRN Primary Care Provider [phone] Encounter Details Date Type Department Care Team (Late st Contact Info) Description 07/28/2010 7:45 AM EST Office Visit Functional Tenriism Program [place] [address] Ananth Sesay, PT [facility] [place] [address] Unknown None Discharge Disposition: Home Social History Tobacco Use [...] on filedocumented in this encounter Care Teams Recovery Manager Relationship Specialty Start Date [place] [address] PCP - General 06/16/10 06/27/18 documented as of this encounter
--- OUTSIDE RECORDS SUMMARY | 2024-02-22 00:59 | XMS_ITS | Encounter Summary ---
Author Organization [facility] [place] [address] Care Team Providers Care Field Scout Name Role Phone Yisel Marroquin MD Primary Care Provider [phone] Encounter Details Date Type Department Care Team (Late st Contact Info) Description 11/03/2007 Orders Only Radiology and Cardiology Results [address] [place] [phone] Apd Conversion, Results Provider, Social History Tobacco [...] Date/Time Associated Diagnosis Comments HEMOGLOBIN A1C Routine 11/03/2007 7:25 AM EDT documented in this encounter Results * (ABNORMAL) Hemoglobin A1c (11/03/2007 7:25 AM EDT) Hemoglobin A1C 6.5(ExtH) 4.5 - 5.7 % KORI FLORES DAY CONVERSION Hemoglobin 14.1(Exter nal Lab) g/dL KORI FLORES DAY CONVERSION 11/03/2007 7:25 AM EDT Results Provider Apd Conversion MD JASON ESTRELLA ORDERABLES KORI GARCIA CONVERSION documented in this encounter Visit Diagnoses Not on filedocumented in this encounter Care Teams Field Scout Relationship Specialty Start Date End Date Yisel Marroquin MD [address] [place] [address] PCP - General General Internal Medicine 03/06/1911/22 documented as of this encounter
--- OUTSIDE RECORDS SUMMARY | 2024-02-22 00:59 | XMS_ITS | Encounter Summary ---
Author Organization [facility]ly [facility] [place] [address] Care Team Providers Care Newsperson Name Role Phone Yisel Marroqiun MD Primary Care Provider [phone] Encounter Details Date Type Department Care Team (Late st Contact Info) Description 08/17/2005 Orders Only Radiology and Cardiology Results [address] [place] [phone] Apd Conversion, Results Provider, Social History Tobacco [...] Comments LIPID PANEL (REFLEX DIRECT LDL) Routine 08/17/2005 9:24 AM EST documented in this encounter Results * (ABNORMAL) Lipid Panel (Reflex Direct LDL) (08/17/2005 9:24 AM EST) VLDL 21.4(Exter nal Lab) mg/dL KORI FLORES DAY CONVERSION Chol/HDL Ratio 5.7(ExtH) 3.2 - 4.4 KORI FLORES DAY CONVERSION Chol, Total 227(ExtH) 0 - 199 mg/dL KORI FLORES DAY CONVERSION Triglycerides 107(Immigration Judge al Lab) 0 - 199 mg/dL KORI FLORES DAY CONVERSION HDL 40.0(Exter nal Lab) 29 - 89 mg/dL KORI CONVERSION 08/17/2005 9:24 AM EST Results Provider Apd Conversion MD JASON ESTRELLA ORDERABLES KORI FORREST CONVERSION documented in this encounter Visit Diagnoses Not on filedocumented in this encounter Care Teams Newsperson Relationship Specialty Start Date End Date Yisel Marroquin MD [address] [place] [address] PCP - General General Internal Medicine 03/06/1911/22 documented as of this encounter
--- OUTSIDE RECORDS SUMMARY | 2024-02-22 00:59 | XMS_ITS | Encounter Summary ---
Author Organization [facility] [place] [address] Care Team Providers Care Tech Writer Name Role Phone Aman Lawrence APRN Primary Care Provider [phone] Encounter Details Date Type Department Care Team (Late st Contact Info) Description 07/28/2010 7:45 AM EST Office Visit Functional Sikhism Program [place] [address] Tawnya Allison Social History Tobacco Use Types [...] on filedocumented in this encounter Care Teams Tech Writer Relationship Specialty Start Date End Date [place] [address] PCP - General 06/16/10 06/27/18 documented as of this encounter
--- OUTSIDE RECORDS SUMMARY | 2024-02-22 00:59 | XMS_ITS | Encounter Summary ---
Author Organization [facility] [place] [address] Care Team Providers Care Lining Machine Operator Name Role Phone Aman Lawrence APRN Primary Care Provider [phone] Encounter Details Date Type Department Care Team (Late st Contact Info) Description 07/08/2010 8:00 AM EST Follow-[place] [address] CLINIC, Aman Steele APRN [address] [place] [address] Bong Cabrera MD [facility] [place] [address] Tawnya Allison Discharge Disposition: Home Social History Tobacco Use [...] on filedocumented in this encounter Care Teams Lining Machine Operator Relationship Specialty Start Date End Date Aman Lawrence APRN [address] [place] [address] PCP - General 06/16/10 06/27/18 documented as of this encounter
--- OUTSIDE RECORDS SUMMARY | 2024-02-22 00:59 | XMS_ITS | Encounter Summary ---
Author Organization [facility] [place] [address] Care Team Providers Care Clinical Education Manager Name Role Phone Yisel Marroqiun MD Primary Care Provider [phone] Encounter Details Date Type Department Care Team (Late st Contact Info) Description 11/03/2007 Orders Only Radiology and Cardiology Results [address] [place] [phone] Apd Conversion, Results Provider, Social History Tobacco [...] Comments LIPID PANEL (REFLEX DIRECT LDL) Routine 11/03/2007 7:25 AM EDT documented in this encounter Results * (ABNORMAL) Lipid Panel (Reflex Direct LDL) (11/03/2007 7:25 AM EDT) Chol, Total 200(ExtH) 0 - 199 mg/dL KORI FLORES DAY CONVERSION Triglycerides 162(Skirt Maker al Lab) 0 - 199 mg/dL KORI FLORES DAY CONVERSION HDL 32.3(Exter nal Lab) 29 - 89 mg/dL KORI FLORES DAY CONVERSION VLDL 32.4(Exter nal Lab) mg/dL KORI FLORES DAY CONVERSION Chol/HDL Ratio 6.2(ExtH) 3.2 - 4.4 KORI CONVERSION 11/03/2007 7:25 AM EDT Results Provider Apd Conversion MD JASON ESTRELLA ORDERABLES KORI FORREST CONVERSION documented in this encounter Visit Diagnoses Not on filedocumented in this encounter Care Teams Clinical Education Manager Relationship Specialty Start Date End Date Yisel Marroquin MD [address] [place] [address] PCP - General General Internal Medicine 03/06/1911/22 documented as of this encounter
--- OUTSIDE RECORDS SUMMARY | 2024-02-22 00:59 | XMS_ITS | Encounter Summary ---
Author Organization [facility] [place] [address] Care Team Providers Care Hurl Shaker Name Role Phone Aman Lawrence APRN Primary Care Provider [phone] Encounter Details Date Type Department Care Team (Late st Contact Info) Description 06/23/2010 1:00 PM EST Follow-[place] [address] Dhruv Walker PA [facility] [place] [address] Social History Tobacco Use Types Packs/Day Years Used Date Smoking Tobacco: Never Assessed Sex and Gender Information Value Date Recorded Sex Assigned at Not on file Gender Identity Not on file Sexual Orientation Not on file documented as of this encounter Plan of Treatment Not on file documented as of this encounter Visit Diagnoses Not on filedocumented in this encounter Care Teams Hurl Shaker Relationship Specialty Start Date End Date Aman Lawrence [place] [address] PCP - General 06/16/10 06/27/18 documented as of this encounter
--- OUTSIDE RECORDS SUMMARY | 2024-02-22 00:59 | XMS_ITS | Encounter Summary ---
Author Organization [facility] [place] [address] Care Team Providers Care Plate Sensitizer Name Role Phone Aman Lawrence APRN Primary Care Provider [phone] Encounter Details Date Type Department Care Team (Late st Contact Info) Description 06/16/2010 3:00 PM EST Office Visit [place] [address] Adal Oliva, OT [facility]YSICAL MEDIC[facility] & [place] [address] Social History Tobacco Use Types Packs/Day Years Used Date Smoking Tobacco: Never Assessed Sex and Gender Information Value Date Recorded Sex Assigned at Not on file Gender Identity Not on file Sexual Orientation Not on file documented as of this encounter Plan of Treatment Not on file documented as of this encounter Visit Diagnoses Not on filedocumented in this encounter Care Teams Plate Sensitizer Relationship Specialty Start Date End [place] [address] PCP - General 06/16/10 06/27/18 documented as of this encounter
--- OUTSIDE RECORDS SUMMARY | 2024-02-22 00:59 | XMS_ITS | Encounter Summary ---
Author Organization [facility] [place] [address] Care Team Providers Care Supervisor Customer Records Division Name Role Phone Aman Lawrence APRN Primary Care Provider [phone] Encounter Details Date Type Department Care Team (Late st Contact Info) Description 07/08/2010 9:00 AM EST Office Visit [place] [address] Bong Cabrera MD [facility] [place] [address] Discharge Disposition: Home Social History Tobacco Use [...] filedocumented in this encounter Care Teams Supervisor Customer Records Division Relationship Specialty Start Date End Date Aman Lawrence [place] [address] PCP - General 06/16/10 06/27/18 documented as of this encounter
--- OUTSIDE RECORDS SUMMARY | 2024-02-22 00:59 | XMS_ITS | Encounter Summary ---
Author Organization [facility] Address [facility] [place] [address] Care Team Providers Care Consultant Education Name Role Phone Yisel Marroquin MD Primary Care Provider [phone] Encounter Details Date Type Department Care Team (Late st Contact Info) Description 02/26/2009 Interpretation Only Radiology [address] [facility] [place] [address] Unknown None Social History Tobacco Use Types [...] Comments XR CHEST PA AND LATERAL Routine 02/26/2009 10:50 AM EDT documented in this encounter Results * XR Chest PA & Lateral (Generic) (02/26/2009 10:50 AM EDT) Anatomical Region Laterality Modality Chest N/A Radiographic Ara ging 02/26/2009 10:5 0 AM EDT Narrative 02/26/2009 10:50 AM EDT APD Historical Result Principal Department Store Manager: ??MAUREEN ??B CHEST - PA AND LATERAL: There is a clinical history of cough and tobacco abuse. Comparison is made with the study performed on October 02, 2007. FINDINGS: The current and prior studies reveal bilateral hyperexpansion consistent with a measure of chronic obstructive pulmonary disease. ??Peripheral interstitial prominence suggests the measure of simultaneous interstitial fibrosis. ??No definite focal infiltrates, pleural effusions, or atelectasis seen. ??Slight degenerative disc disease throughout the thoracic spine as a stable appearance. IMPRESSION: No acute abnormality seen. ??Stable pattern of slight chronic obstructive pulmonary disease. ??No focal abnormality seen. Maureen Enamorado MD, FACR [facility] [id number] CC: Procedure Note Unknown - 01/22/2019 APD Historical Result Principal Department Store Manager: MAUREEN Garrido CHEST - PA AND LATERAL: There is a clinical history of cough and tobacco abuse. Comparison is made with the study performed on October 02, 2007. FINDINGS: The current and prior studies reveal bilateral hyperexpansion consistentwith a measure of chronic obstructive pulmonary disease. Peripheral interstitial prominencesuggests the measure of simultaneous interstitial fibrosis. No definite focal infiltrates,pleural effusions, or atelectasis seen. Slight degenerative disc disease throughout thethoracic spine as a stable appearance. IMPRESSION: No acute abnormality seen. Stable pattern of slight chronicobstructive pulmonary disease. No focal abnormality seen. Maureen Enamorado MD, FACR [facility] [id number] CC: Unknown IMG DX ORDERABLES documented in this encounter Visit Diagnoses Not on filedocumented in this encounter Care Teams Consultant Education Relationship Specialty Start Date End Date Yisel Marroquin MD [address] [place] [address] PCP - General 11/13/18 03/05/19 documented as of this encounter
--- OUTSIDE RECORDS SUMMARY | 2024-02-22 00:59 | XMS_ITS | Encounter Summary ---
Author Organization [facility] Address [facility] [place] [address] Care Team Providers Care Sports Instructor Name Role Phone Aman Lawrence APRN Primary Care Provider [phone] Encounter Details Date Type Department Care Team (Latest Contact Info) Description 07/29/2010 1:20 PM EST Procedure visit Functional Yazidi Program [place] [address] Bong Cabrera MD [facility] [address] Discharge Disposition: Home Social History Tobacco Use [...] on filedocumented in this encounter Care Teams Sports Instructor Relationship Specialty Start Date End Date Aman Lawrence [place] [address] PCP - General 06/16/10 06/27/18 documented as of this encounter
--- OUTSIDE RECORDS SUMMARY | 2024-02-22 00:59 | XMS_ITS | Encounter Summary ---
Author Organization Formerly [facility] [place] [address] Care Team Providers Care Intensive Care Anaesthetist Name Role Phone Aman Lawrence APRN Primary Care Provider [phone] Encounter Details Date Type Department Care Team (Latest Contact Info) Description 07/28/2010 8:45 AM EST Procedure [place] [address] Bong Cabrera MD [facility] [place] [address] Discharge Disposition: Home Social History Tobacco Use [...] in this encounter Care Teams Intensive Care Anaesthetist Relationship Specialty Start Date End Date [place]man [place] [address] PCP - General 06/16/10 06/27/18 documented as of this encounter
--- OUTSIDE RECORDS SUMMARY | 2024-02-22 00:59 | XMS_ITS | Encounter Summary ---
[place] [address] Care Team Providers Care Balance Recesser Name Role Phone Unavailable Primary Care Provider Unavailabl e Encounter Details Date Type Department Care Team (Late st Contact Info) Description 05/28/2010 1:00 PM EDT Office [place] [address] Unknown None Anabell Simpson, PT Social History Tobacco Use [...]
--- OUTSIDE RECORDS SUMMARY | 2024-02-22 00:59 | XMS_ITS | Encounter Summary ---
Author Organization [place] [address] Care Team Providers Care Concrete Block Mason Name Role Phone Yisel Marroquin MD Primary Care Provider [phone] Encounter Details Date Type Department Care Team (Late st Contact Info) Description 11/14/2006 Orders Only Radiology and Cardiology Results [address] [place] [id number] Apd Conversion, Results Provider, Social History Tobacco [...] Comments LIPID PANEL (REFLEX DIRECT LDL) Routine 11/14/2006 8:19 AM EDT documented in this encounter Results * (ABNORMAL) Lipid Panel (Reflex Direct LDL) (11/14/2006 8:19 AM EDT) Chol, Total 202(ExtH) 0 - 199 mg/dL [facility] DAY CONVERSION Triglycerides 168(Eligibility Manager al Lab) 0 - 199 mg/dL [facility] FLORES DAY CONVERSION HDL 34.9(Exter nal Lab) 29 - 89 mg/dL [facility] FLORES DAY CONVERSION VLDL 33.6(Exter nal Lab) mg/dL [facility] FLORES DAY CONVERSION Chol/HDL Ratio 5.8(ExtH) 3.2 - 4.4 KORI CONVERSION 11/14/2006 8:19 AM EDT Results Provider Apd Conversion MD JASON ESTRELLA ORDERABLES KORI FORREST CONVERSION documented in this encounter Visit Diagnoses Not on filedocumented in this encounter Care Teams Concrete Block Mason Relationship Specialty Start Date End Date Yisel Marroquin MD [address] [place] [address] PCP - General General Internal Medicine 03/06/1911/22 documented as of this encounter
--- OUTSIDE RECORDS SUMMARY | 2024-02-22 00:59 | XMS_ITS | Encounter Summary ---
Author Organization [facility] Address [facility] [place] [address] Care Team Providers Care Director Of Clinical Trials Name Role Phone Aman Lawrence APRN Primary Care Provider [phone] Encounter Details Date Type Department Care Team (Late st Contact Info) Description 07/30/2010 7:55 AM EST Office Visit Functional [facility] [place] [address] Ananth Sesay, PT [facility] [place] [address] Social History Tobacco Use Types Packs/Day Years [...] in this encounter Care Teams Director Of Clinical Trials Relationship Specialty Start Date End Date [place] [address] PCP - General 06/16/10 06/27/18 documented as of this encounter
--- OUTSIDE RECORDS SUMMARY | 2024-02-22 00:59 | XMS_ITS | Encounter Summary ---
Author Organization Formerly [facility] [place] [address] Care Team Providers Care Accordion Repairer Name Role Phone Aman Lawrence APRN Primary Care Provider [phone] Encounter Details Date Type Department Care Team (Late st Contact Info) Description 07/13/2010 9:00 AM EST Follow-[place] [address] Ana Goins, [facility] [place] [address] Social History Tobacco Use Types Packs/Day Years Used Date Smoking Tobacco: Never Assessed Sex and Gender Information Value Date Recorded Sex Assigned at Not on file Gender Identity Not on file Sexual Orientation Not on file documented as of this encounter Plan of Treatment Not on file documented as of this encounter Visit Diagnoses Not on filedocumented in this encounter Care Teams Accordion Repairer Relationship Specialty Start Date End Date Aman Lawrence APRN [place] [address] PCP - General 06/16/10 06/27/18 documented as of this encounter
--- OUTSIDE RECORDS SUMMARY | 2024-02-22 00:59 | XMS_ITS | Encounter Summary ---
Author Organization [facility] Address [facility] [place] [address] Care Team Providers Care Mechatronics Technician Name Role Phone Aman Lawrence APRN Primary Care Provider [phone] Encounter Details Date Type Department Care Team (Late st Contact Info) Description 07/29/2010 7:55 AM EST Office Visit Functional [facility] [place] [address] Ananth Sesay, PT [facility] [place] [address] Social History Tobacco Use Types Packs/Day Years Used Date Smoking Tobacco: Never Assessed Sex and Gender Information Value Date Recorded Sex Assigned at Not on file Gender Identity Not on file Sexual Orientation Not on file documented as of this encounter Plan of Treatment Not on file documented as of this encounter Visit Diagnoses Not on filedocumented in this encounter Care Teams Mechatronics Technician Relationship Specialty Start Date End Date [place] [address] PCP - General 06/16/10 06/27/18 documented as of this encounter
--- OUTSIDE RECORDS SUMMARY | 2024-02-22 00:59 | XMS_ITS | Encounter Summary ---
Author Organization Formerly [facility] [place] [address] Care Team Providers Care Endoscopy Support Specialist Name Role Phone Aman Lawrence APRN Primary Care Provider [phone] Encounter Details Date Type Department Care Team (Late st Contact Info) Description 07/13/2010 8:00 AM EST Office [place] [address] Tawnya Allison Social History Tobacco Use Types [...] on filedocumented in this encounter Care Teams Endoscopy Support Specialist Relationship Specialty Start Date End [place] [address] PCP - General 06/16/10 06/27/18 documented as of this encounter
--- NOTE | 2024-02-22 09:10 | DI.CTLCSR_ITS ---
Exam(s) CT CHEST LUNG CANCER SCREEN EXAM: CT CHEST LUNG CANCER SCREEN CLINICAL HISTORY: NICOTINE DEPENDENCE F17.210 SCREENING LUNG CANCER TECHNIQUE: Imaging Protocol: Axial computed tomography images with coronal and sagittal reformatted images were created and reviewed COMPARISON: CT CT CHEST LUNG CANCER SCREEN from 08/20/[address] CHEST WO from 02/15/2023 FINDINGS: Tracheobronchial tree: Patent where visualized. No bronchiectasis. Pulmonary parenchyma: No consolidation or dominant measurable mass. No architectural distortion. Ther e is a calcified granuloma in the left lower lobe. Lung Nodules: There is a stable 4 mm nodule in the right lower lobe peripherally (series 12, image 40 6). Mediastinum and Ruth: No dominant adenopathy or fluid collection. The esophagus is unremarkable. Thyroid gland: Unremarkable. Lymph nodes: Unremarkable. Pleura: No effusion or pneumothorax. Heart: The heart is not dilated. Coronary artery calcifications are present. No pericardial effusion . Aorta: Thoracic aorta non-dilated.Atherosclerotic calcification is present. Upper abdomen: Unremarkable. Soft Tissues: Unremarkable. Bones: Within normal limits. IMPRESSION: Stable 4 mm right lower lobe pulmonary nodule. No new pulmonary nodules. Lung RADS Cat 2 - Benign Appearance / Behavior: Nodules with a very low likelihood of becoming a clin ically active cancer due to size or lack of growth Lung-RADS 1.0 CATEGORIES: Category 0 - Prior chest CT exam(s) being located for comparison. Category 1 - Annual screening in 12 months. No nodules or definitely benign nodules. Category 2 - Annual screening in 12 months. Benign appearance. Nodules with low likelihood of becomin g active cancer. Category 3 - 6-month follow-up. Probably benign. Short-term follow-up suggested. Nodules with low lik elihood of becoming active cancer. Category 4A - 3-month follow-up and CT/PET if >8 mm in size. Suspicious finding. Findings which requi re additional testing. Category 4B - Findings which require additional testing and tissue sampling. Suspicious finding. Category 4X - Category 3 or 4 nodules with additional features or imaging findings that increases the suspicion of malignancy. Modifier S- Potentially clinically significant finding. (Non lung cancer) RADIATION DOSE DELIVERED: Total DLP Total DLP DATA REPOSITORY: All CT scans at this facility are submitted to the National Radiology Data Registry (NRDR) Dose Index Registry (DIR) with the [employer] (ACR). RADIATION OPTIMIZATION: All CT scans at this facility use at least one of these dose optimization te chniques: automated exposure control; mA and/or kV adjustment per patient size (includes targeted exa ms where dose is matched to clinical indication); or iterative reconstruction.
== END ==
PROVIDERS: PCP Nurse Practitioner Family; Visit Provider Nurse Practitioner Family
DX: F17.210 Nicotine dependence, cigarettes, uncomplicated (principal); R91.1 Solitary pulmonary nodule
CPT/HCPCS: 71271

== ENCOUNTER 2024-04-16 02:06 | Outpatient (CLI) | payer MEDICARE, MEDICAID, SELFPAY ==
--- NOTE | 2024-04-16 | DI.MAMMO_ITS ---
Exam(s) MAMMO SCREENING EXAM: MAMMO SCREENING CLINICAL HISTORY: SCREENING,Z12.31 TECHNIQUE: Bilateral full field digital CC and MLO mammographic images were obtained with 3D tomosyn thesis and utilizing computer aided detection (CAD). COMPARISON: Available for comparison. FINDINGS: Masses/Architectural Distortion: There is new 4 mm nodular density the inferior aspect of the right b reast on the MLO view. There are no areas of architectural distortion. The nodules in the upper out er quadrant of the right breast are stable. Microcalcifications: No suspicious pleomorphic-type are seen. Skin Thickening/Nipple Retraction: None. IMPRESSION: 1. New 4 mm nodule in the inferior aspect of the right breast on the MLO view. 2. Spot compression views requested for further evaluation. Limited right breast ultrasound may be i ndicated at that time. BI-RADS Category 0 - Incomplete: Need additional imaging evaluation Breast Density - Category B - Scattered areas of fibroglandular density Breast density category C or D implies that the patient has dense breast tissue. Dense breast tissue is very common and is not abnormal but dense breast tissue can make it harder to find cancer on a ma mmogram. Also, dense breast tissue may increase their breast cancer risk. This information about the result of the mammogram report was provided to the patient to raise their awareness. Use this report when you speak with the patient about their risks for breast cancer, which includes their family hist ory. At that time, you may recommend for more screening tests (Ultrasound or MRI) as they might be us eful based on their risk. A negative radiographic report should not delay biopsy if a dominant or clinically suspicious mass is present. Up to ten percent of cancers are not identified on mammography. A negative report may reinforce clinical impression. Adenosis and dense breasts may obscure an underlying neoplasm. False positive reports average 6 to 10%. Patient will receive a letter notifying them of these results.
== END 2024-04-16 02:26 ==
LOC: DI 02:06
PROVIDERS: PCP Nurse Practitioner Family; Visit Provider Nurse Practitioner Family
DX: Z12.31 Encounter for screening mammogram for malignant neoplasm of breast (principal); N63.12 Unspecified lump in the right breast, upper inner quadrant
CPT/HCPCS: 77063; 77067

== ENCOUNTER 2024-04-18 01:34 | Outpatient (CLI) | payer MEDICARE, MEDICAID, SELFPAY ==
--- NOTE | 2024-04-18 15:10 | DI.US_ITS ---
Exam(s) MG MAMMO SCREEN CALL BACK UNI US BREAST RT LIMITED EXAM: MG MAMMO SCREEN CALL BACK UNI and U/S breast RT limited CLINICAL HISTORY: F/U MAMMO, NEW 4 MM RT NODULE,R92.8. TECHNIQUE: Craniocaudal and mediolateral oblique Full Field Digital Mammography views of the right b reast with Computer Aided Diagnosis followed by Tomosynthesis and right breast ultrasound. COMPARISON: Comparison is made with prior examinations. FINDINGS: Mammography/Tomosynthesis: Masses/Architectural Distortion: There is again seen an ill-defined nodule at the inferior aspect of the right breast on the additional MLO views. No architectural distortion is seen. Microcalcifictions: No suspicious pleomorphic-type are seen. Skin Thickening/Nipple Retraction: None. Limited right breast US: Echotexture: Normal appearance of the glandular tissue. Shadowing: No suspicious foci. Cyst: At the 4 o'clock position of the right breast 5 cm from the nipple there is a subcutaneous well -circumscribed ovoid radially oriented 0.6 x 0.2 cm lesion most suggestive of a sebaceous cyst. This would appear to correspond to the mammographic abnormality. A similar subcutaneous lesion seen at 9 o'clock 12 cm from the nipple. It measures 9 mm. This corresponds to the nodule seen in the outer right breast on the right CC view. This is unchanged. Solid lesions: None seen. Ductal dilation: None. IMPRESSION: 1. No evidence of malignancy is noted. 2. Unless there is more urgent need, follow-up screening mammography is recommended, as per [place] [employer] guidelines. 3. The findings were discussed with the patient on the date of the examination. BI-RADS Category 2 - Benign Findings Breast Density - Category B - Scattered areas of fibroglandular density Breast density Category C or D implies that the patient has dense breast tissue. Dense breast tissue can make it harder to find cancer on a mammogram. Dense breast tissue is also associated with an incr eased risk of breast cancer. This information about the result of the mammogram report was provided to the patient to raise their awareness. Use this report when you speak with the patient about their risks for breast cancer, which includes their family history. At that time, you may recommend additional screening tests (Ultrasoun d or MRI) as these tests may add significant information. A negative radiographic report should not delay biopsy if a dominant or clinically suspicious mass is present. Up to ten percent of cancers are not identified on mammography. A negative report may reinforce clinical impression. Adenosis and dense breasts may obscure an underlying neoplasm. False positive reports average 6 to 10%. Patient will receive a letter notifying them of these results.
== END 2024-04-18 01:54 ==
LOC: DI 01:34
PROVIDERS: PCP Nurse Practitioner Family; Visit Provider Nurse Practitioner Family
DX: R92.8 Other abnormal and inconclusive findings on diagnostic imaging of breast (principal); Z12.31 Encounter for screening mammogram for malignant neoplasm of breast
CPT/HCPCS: 76642; 77063; 77067

== ENCOUNTER 2024-08-01 18:20 | Outpatient (REF) | payer MEDICARE, MEDICAID, SELFPAY ==
[2024-08-01 16:57] LABS: Abs Immature Grans 0.04 10^3/uL (0.0-0.06); Absolute Basophil Count 0.06 10^3/uL (0.0-0.2); Absolute Eosinophil Count 0.04 10^3/uL (0.0-0.7); Absolute Lymphocyte Count 2.14 10^3/uL (1.2-3.4); Absolute Monocyte Count 0.74 10^3/uL (0.1-0.8); Absolute Neutrophil Count 5.71 10^3/uL (1.2-6.7); Basophils % 0.7 %; Eosinophils % 0.5 %; HCT 40.5 % (36.0-46.0); HGB 13.2 g/dL (11.2-15.7); Immature Grans % 0.5 %; Lymphocytes % 24.5 %; MCH 33.3 pg (27.0-33.0); MCHC 32.6 % (32.0-36.0); MCV 102 fL (80-95); Monocytes % 8.5 %; Neutrophils % 65.3 %; Platelet Count 239 10^3/uL (130-400); RBC 3.96 10^6/uL (3.93-5.22); RDW 13.5 % (11.7-14.6); RDW-SD 51.7 fL; WBC 8.73 10^3/uL (4.4-10.8)
[2024-08-01 17:29] LABS: Hemoglobin A1C 5.4 % (<5.7)
[2024-08-01 17:54] LABS: ALT 26 U/L (14-59); AST 17 U/L (15-37); Albumin 3.7 g/dL (3.4-5.0); Alkaline Phosphatase 83 U/L (46-116); Anion Gap 6.3 mmol/L (3-11); BUN 24 mg/dL (7-18); Bilirubin, Total 0.25 mg/dL (0.2-1.0); CO2 32.7 mmol/L (21.0-32.0); CREATININE 0.7 mg/dL (0.55-1.02); Calcium 9.6 mg/dL (8.5-10.1); Calculated LDL 28 mg/dL (<100); Chloride 104 mmol/L (98-107); Cholesterol 103 mg/dL (<200); Estimated GFR 96.52 (mL/min/1.73m2); Ferritin 193 ng/mL (8-252); Glucose 76 mg/dL (74-106); HDL Cholesterol 67 mg/dL (40-60); Iron 76 ug/dL (50-170); Potassium 5.6 mmol/L (3.5-5.1); Sodium 143 mmol/L (136-145); Total Iron Binding Capacity 268 ug/dL (250-450); Total Protein 6.4 g/dL (6.4-8.2); Transferrin Sat 28 % (15-50); Triglyceride 43 mg/dL (<150); Vitamin B12 > 2000 pg/mL (193-986)
[2024-08-01 18:27] LABS: Vitamin D 25 Total 65.7 ng/mL (30-100)
--- OUTSIDE RECORDS SUMMARY | 2024-08-01 18:27 | XMS_ITS | Clinical Summary ---
Author Organization [facility] Address [address] [place] [address] Care Team Providers Care Security Installation Technician Name Role Phone Unavailable Primary Care Provider Unavailabl e Social History Tobacco Use Types Packs/Day Years Used Date Smoking Tobacco: Never Assessed Comments Unknown Sex and Gender Information Value Date Recorded Sex Assigned at Not on file Legal Sex Female 12:21 EST Gender Identity Not on file Sexual Orientation Not on file Plan of Treatment Health Maintenance Due Date Last Done Comments Hepatitis C Screen 1960 COVID-19 Vaccine (2023-25 season) 2024 RSV Immunization ( o r 60+ Years) (1 - 1-dose 75+ series) 2035
--- OUTSIDE RECORDS SUMMARY | 2024-08-01 18:27 | XMS_ITS | Referral Summary ---
Author Organization [facility] Address [address] [place] [address] Care Team Providers Care Silversmith Apprentice Name Role Phone Unavailable Primary Care Provider [...]
--- OUTSIDE RECORDS SUMMARY | 2024-08-01 18:27 | XMS_ITS | Encounter Summary ---
Author Organization [facility] Address [address] [place] [address] Care Team Providers Care Expansion Joint Builder Name Role Phone Unavailable Primary Care Provider Unavailabl e Encounter Details Date Type Department Care Team (Late st Contact Info) Description 09/09/2022 Lab Requisition [facility] Pathology & Laboratory Medicine - [facility] [address] [place] [address] Outr Resulting Lab, Provider Social History Tobacco [...] Insulin 7.8 <29.0 uIU/mL 09/13/2022 9:38 EST [facility] Comment: Displayed Reference Range applies to fasting specimens only. Blood VENOUS BLOOD / Unknown 09/09/2022 7:35 EST 09/09/2022 16:51 EST us Provider Outr Resulting Lab CHEMISTRY & BLOOD GA S ORDERABLES Final Result [facility] [address] [place] [address] documented in this encounter Visit Diagnoses Not on filedocumented in this encounter
--- OUTSIDE RECORDS SUMMARY | 2024-08-01 18:27 | XMS_ITS | Encounter Summary ---
Author Organization [facility] Address [address] [place] [address] Care Team Providers Care Crane Helper Name Role Phone Unavailable Primary Care Provider Unavailabl e Encounter Details Date Type Department Care Team (Late st Contact Info) Description 03/21/2023 Lab Requisition [facility] Pathology & Laboratory Medicine - [facility] [address] [place] [address] Outr Resulting Lab, Provider Social History Tobacco [...] 19 - 88 pg/mL 03/21/2023 22:22 EDT [facility] Blood VENOUS BLOOD / Unknown 03/21/2023 9:45 EDT 03/21/2023 21:17 EDT us Provider Outr Resulting Lab CHEMISTRY & BLOOD GA S ORDERABLES Final Result [facility] [address] [place] [address] documented in this encounter Visit Diagnoses Not on filedocumented in this encounter
--- OUTSIDE RECORDS SUMMARY | 2024-08-01 18:27 | XMS_ITS | Encounter Summary ---
Author Organization [facility] Address [address] [place] [address] Care Team Providers Care Processing Supervisor Name Role Phone Unavailable Primary Care Provider Unavailabl e Encounter Details Date Type Department Care Team (Late st Contact Info) Description 01/19/2023 Lab Requisition [facility] Pathology & Laboratory Medicine - [facility] [address] [place] [address] Outr Resulting Lab, Provider Social History Tobacco [...] 32 - 197 mg/dL 01/20/2023 11:04 EDT [facility] Blood VENOUS BLOOD / Unknown 01/19/2023 8:05 EDT 01/19/2023 17:07 EDT us Provider Outr Resulting Lab CHEMISTRY & BLOOD GA S ORDERABLES Final Result [facility] [address] [place] [address] documented in this encounter Visit Diagnoses Not on filedocumented in this encounter
--- OUTSIDE RECORDS SUMMARY | 2024-08-01 18:27 | XMS_ITS | Encounter Summary ---
Author Organization [facility] Address [address] [place] [address] Care Team Providers Care Expansion Joint Finisher Name Role Phone Unavailable Primary Care Provider Unavailabl e Encounter Details Date Type Department Care Team (Late st Contact Info) Description 01/03/2023 Lab Requisition [facility] Pathology & Laboratory Medicine - [facility] [address] [place] [address] Outr Resulting Lab, Provider Social History Tobacco [...] 55.8 - 66.1 % 01/04/2023 14:04 EDT [facility] Albumin g/dL 3.8 3.6 - 5.2 g/dL 01/04/2023 14:04 EDT [facility] Alpha-1 % 5.6(H) 2.9 - 4.9 % 01/04/2023 14:04 EDT [facility] Alpha-1 g/dL 0.40 0.15 - 0.40 g/dL 01/04/2023 14:04 [facility] Alpha-2 % 11.8 7.1 - 11.8 % 01/04/2023 14:04 [facility] Alpha-2 g/dL 0.80 0.50 - 1.00 g/dL 01/04/2023 14:04 [facility] Beta % 12.8 8.4 - 13.1 % 01/04/2023 14:04 [facility] Beta g/dL 0.80 0.60 - 1.20 g/dL 01/04/2023 14:04 [facility] Gamma % 11.0(L) 11.1 - 18.8 % 01/04/2023 14:04 [facility] Gamma g/dL 0.70 0.60 - 1.60 g/dL 01/04/2023 14:04 [facility] SPEP Comment No apparent monoclonal protein seen on serum electrophoresis 01/04/2023 14:04 [facility] Comment:See scanned/suppleme ntary report. Total Protein 6.4 6.3 - 8.2 g/dL 01/04/2023 14:04 [facility] Blood VENOUS BLOOD / Unknown 01/02/2023 11:00 EDT 01/03/2023 17:13 EDT us Provider Outr Resulting Lab CHEMISTRY & BLOOD GA S ORDERABLES Final Result [facility] [address] [place] [address] * PROTEIN, TOTAL (01/02/2023 11:00 EDT) Blood VENOUS BLOOD / Unknown 01/02/2023 11:00 EDT 01/03/2023 17:13 EDT us Provider Outr Resulting Lab CHEMISTRY & BLOOD GA S ORDERABLES Final Result [facility] [address] [place] [address] documented in this encounter Visit Diagnoses Not on filedocumented in this encounter
--- OUTSIDE RECORDS SUMMARY | 2024-08-01 18:27 | XMS_ITS | Encounter Summary ---
Author Organization [facility] Address [address] [place] [address] Care Team Providers Care Mattress Filler Name Role Phone Unavailable Primary Care Provider Unavailabl e Encounter Details Date Type Department Care Team (Late st Contact Info) Description 08/02/2022 Lab Requisition [facility] Pathology & Laboratory Medicine - [facility] [address] [place] [address] Outr Resulting Lab, Provider Social History Tobacco [...] 19 - 88 pg/mL 08/02/2022 23:37 EST [facility] Blood VENOUS BLOOD / Unknown 08/02/2022 9:00 EST 08/02/2022 17:01 EST us Provider Outr Resulting Lab CHEMISTRY & BLOOD GA S ORDERABLES Final Result [facility] [address] [place] [address] documented in this encounter Visit Diagnoses Not on filedocumented in this encounter
--- OUTSIDE RECORDS SUMMARY | 2024-08-01 18:28 | XMS_ITS | Encounter Summary ---
Author Organization [facility] [place] [address] Care Team Providers Care Burlap Bag Sewer Name Role Phone Hoang Castellanos APRN Primary Care Provider Encounter Details Date Type Department Care Team (Late st Contact Info) Description 05/20/2022 Telephone Primary Care at [facility] [place] [id number] Jeannie Luciano, RN Social History Tobacco Use [...] patient anyways- assuming it could be over [facility]? * Telephone Encounter - Jeannie Luciano RN - 05/20/2022 4:01 PM EDT Message received from Kimberly with [employer] asking if Hoang Castellanos APRN would complete paperwork for her to continue in the [facility] Choices for Care with the [facility]. Jeannie will be moving very soon to [...] on filedocumented in this encounter Care Teams Burlap Bag Sewer Relationship Specialty Start Date End Date Hoang Castellanos APRN [address] [place] [address] PCP - General Family Medicine 03/12/20 documented as of this encounter
--- OUTSIDE RECORDS SUMMARY | 2024-08-01 18:28 | XMS_ITS | Continuity of Care Document ---
Author Organization [facility], [facility] Address [address] [place] [address] Assessment No assessment recorded. Plan of Treatment Reminders Order Date Submit Date Provider Last Modified By Organization Details Last Modified Time Details Appointments Home Visit 2024 08:10A M DAMARI CHAPMAN Not available Not available Not available Lab None recorded. Referral None recorded. Procedures None recorded. Surgeries None recorded. Imaging None recorded. Medication Orders cephalexi n 500 mg capsule 2023 024 Not available 07/23/2024 15:27:13 Patient TargetsNo targets recorded. Patient Instructions Encounter Date Encounter Id Patient Instructions Last Modified By Organization Details Last Modified Time 05/21/2024 [id number] Today, it does appear that there was an abscess/boil to the right labia, that has since opened and drained on it's own. It appears to be improving, but we will treat any surrounding soft tissue infection with an oral antibiotic (cephalexin) 4 times a day for 5 days. This was sent electronically to [facility], and I have also provided a paper prescription that can be faxed if necessary. Continue to use warm, moist compresses, keep the area clean and dry, and return for any fevers, worsening pain, redness, or drainage not responding to treatment discussed. [email or web address] Not available 05/21/2024 12:48:49 Reason for Referral None Reported. Problems Name Problem SNOMED Code Status Onset Date Resolution Date Notes Provider Name and Address Organization Details Recorded Time Anxiety disorder 875659497 Active 2021 Problem Code: F41.9; Problem Code Type: ICD-10; DAMARI CHAPMAN, SAM [address], [place], [address] , [facility] 3 10:18:48 Arthrode sis Active 2021 Problem Code: Z98.1; Problem Code Type: ICD-10; SAM [address], [address] 3 10:18:48 Asthma 671475303 Active 2021 Problem Code: J45.998; Problem Code Type: ICD-10; SAM ENC[address] Dr, [address] 3 10:18:48 Atherosc lerosis of coronary artery without angina pectoris 85164960921 4103 Active 2021 Problem Code: I25.10; Problem Code Type: ICD-10; SAM ENCISO Dr, [address] 3 10:18:48 [facility] hyperten jerson 07551735 Active 2021 Problem Code: I10; Problem Code Type: ICD-10; SAM ENC[address] Dr, [address] 3 10:18:48 Localize d edema 068175315 Active 2021 Problem Code: R60.0; Problem Code Type: ICD-10; SAM ENC[address] Dr, [address] 3 10:18:48 Bipolar disorder 17290060 Active 2021 Problem Code: F31.9; Problem Code Type: ICD-10; SAM ENC[address] Dr, [address] 3 10:18:48 Borderli ne personal ity disorder Active 2021 Problem Code: F60.3; Problem Code Type: ICD-10; SAM [address] Dr, [address] 3 10:18:48 Bulimia nervosa 26797795 Active 2021 Problem Code: F50.2; Problem Code Type: ICD-10; SAM [address], [address] 3 10:18:49 Cataract 610108851 Active 2021 Problem Code: H26.9; Problem Code Type: ICD-10; SAM [address] Dr, [address] 3 10:18:48 Spinal stenosis in cervical region 20370496 Active 2021 Problem Code: M48.02; Problem Code Type: ICD-10; SAM E[address] Dr, [facility] [address] [place] [address] 3 10:18:49 Neck pain 07312921 Active 2021 Problem Code: M54.2; Problem Code Type: ICD-10; SAM ENC[address] Dr, [facility] [address] [place] [address] 3 10:18:49 Chronic obstruct kayden pulmonar y disease 62726753 Active 2021 Problem Code: J44.9; Problem Code Type: ICD-10; SAM E[address] Dr, [facility] [address] [place] [address] 3 10:18:48 Chronic pain 59594595 Active 2021 Problem Code: G89.29; Problem Code Type: ICD-10; SAM [address] Dr, [place], [place], [address] [place] [address] , [facility] 3 10:18:49 Arthralg ia of the ankle and/or foot 342827002 Active 2021 Problem Code: M25.579; Problem Code Type: ICD-10; SAM E[address] Dr, [address] 3 10:18:48 Major depressi on, single episode 83958446 Active 2021 Problem Code: F32.9; Problem Code Type: ICD-10; SAM ENC[address] Dr, [address] 3 10:18:48 Dizzines s and giddines s 427938201 Active 2021 Problem Code: R42; Problem Code Type: ICD-10; SAM [address] Dr, [address] 3 10:18:48 Asthenia 83187820 Active 2021 Problem Code: R53.1; Problem Code Type: ICD-10; SAM [address] Dr, [address] 3 10:18:48 Gastroes ophageal reflux disease without esophagi tis 467454377 Active 2021 Problem Code: K21.9; Problem Code Type: ICD-10; SAM [address] Dr, [address] 3 10:18:48 Headache 38558669 Active 2021 Problem Code: R51.9; Problem Code Type: ICD-10; SAM ENC[address] Dr, [address] 3 10:18:48 Hyperlip idemia 01600783 Active 2021 Problem Code: E78.5; Problem Code Type: ICD-10; SAM [address] Dr, [facility] [address] , [facility] 3 10:18:48 Hypothyr oidism 52071944 Active 2021 Problem Code: E03.9; Problem Code Type: ICD-10; SAM [address] Dr, [address] 3 10:18:48 Low back pain 763282166 Active 2021 Problem Code: M54.50; Problem Code Type: ICD-10; SAM [address] Dr, [address] 3 10:18:48 Obesity 259418776 Active 2021 Problem Code: E66.9; Problem Code Type: ICD-10; SAM [address] Dr, [address] 3 10:18:48 Obstruct kayden sleep apnea syndrome 69387677 Active 2021 Problem Code: G47.33; Problem Code Type: ICD-10; SAM [address] Dr, [facility] [address] 3 10:18:49 Osteoart hritis of multiple joints 835504831 Active 2021 Problem Code: M15.9; Problem Code Type: ICD-10; SAM E[address] Dr, [facility] [address] [place] [address] 3 10:18:48 Senile osteopor osis 77627323 Active 2021 Problem Code: M81.0; Problem Code Type: ICD-10; SAM [address] Dr, [address] 3 10:18:48 Posttrau matic stress disorder 46348188 Active 2021 Problem Code: F43.10; Problem Code Type: ICD-10; SAM [address], [address] 3 10:18:48 Seizure 01093759 Active 2021 Problem Code: R56.9; Problem Code Type: ICD-10; SAM E[address] Dr, [address] 3 10:18:49 Nicotine dependen ce 52191002 Active 2021 Problem Code: Z87.891; Problem Code Type: ICD-10; SAM E[address] Dr, [address] 3 10:18:48 History of risk factor for suicide 16363509117 4103 Active 2021 Problem Code: Z91.51; Problem Code Type: ICD-10; SAM ENC[address] Dr, [address] 3 10:18:48 Vitamin D deficien cy 39581704 Active 2021 Problem Code: E55.9; Problem Code Type: ICD-10; SAM E[address] Dr, [address] 3 10:18:48 Vitamin B deficien cy 18652672 Active 2021 Problem Code: E53.8; Problem Code Type: ICD-10; SAM [address], [place], [address] , [facility] 3 10:18:48 History of bariatri c surgical procedur e 435370260 Active 2021 Problem Code: Z98.84; Problem Code Type: ICD-10; SAM [address] Dr, [place], [place], [address] [place] [address] , [facility] 3 10:18:48 Prediabe chasity 458703344 Active 2021 Problem Code: R73.03; Problem Code Type: ICD-10; SAM E[address] Dr, [place] [address] , [facility] 3 10:18:49 Hemorrho ids 78467969 Active 2021 Problem Code: K64.9; Problem Code Type: ICD-10; SAM E[address] Dr, [place] [address] , [facility] 3 10:18:49 Constipa tion 75050510 Active 2021 Problem Code: K59.00; Problem Code Type: ICD-10; SAM E[address] Dr, [place] [address] , [facility] 3 10:18:48 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 480467304 Active 2021 Problem Code: H54.3; Problem Code Type: ICD-10; SAM ENC[address] Dr, [place] [address] , [facility] 3 10:18:48 Urinary incontin ence 104445009 Active 2021 Problem Code: R32; Problem Code Type: ICD-10; SAM E[address] Dr, [place] [address] , [facility] 3 10:18:48 History of malignan t neoplasm of ovary 084185015 Active 2021 Problem Code: Z85.43; Problem Code Type: ICD-10; SAM E[address] Dr, [facility] [address] 3 10:18:48 Screenin g mammogra phy Active 2022 Problem Code: Z12.31; Problem Code Type: ICD-10; SAM ENC[address] Dr, [facility] [address] [place] [address] 3 10:18:48 Solitary nodule of lung 373984949 Active 2022 Problem Code: R91.1; Problem Code Type: ICD-10; SAM ENCISO Dr, [facility] [address] , [facility] 3 10:18:48 Anemia 646840361 Active 2022 Problem Code: D64.9; Problem Code Type: ICD-10; SAM ENCISO Dr, [facility] [address] [place] [address] 3 10:18:48 Disorder of hematopo ietic structur e 540874559 Active 2022 Problem Code: D75.89; Problem Code Type: ICD-10; SAM E[address]ISO Dr, [facility] [address] [place] [address] 3 10:18:48 Pain in lower limb 06531270 Completed 202202/03/2023 Problem Code: M79.606; Problem Code Type: ICD-10; Not Available [facility] 3 05:27:04 Urinary tract infectio us disease 36861976 Completed 202106/18/2022 Problem Code: N39.0; Problem Code Type: ICD-10; Not Available [facility] 3 05:27:05 Tobacco dependen ce caused by cigarett es 78238778015 711967 Completed 202104/20/2023 Problem Code: F17.210; Problem Code Type: ICD-10; SAM ENCISO Dr, [facility] [address] , [facility] 4 04:29:59 History of nutritio nal disorder 637049820 Completed 202109/09/2022 Not Available [facility] 3 05:27:05 Tobacco dependen ce caused by cigarett es 54064801744 905117 Completed 202208/23/2022 Problem Code: F17.210; Problem Code Type: ICD-10; SAM ENCISO Dr, [facility] [address] , [facility] 4 04:29:59 Nicotine dependen ce 68704006 Completed 202208/23/2022 Problem Code: F17.200; Problem Code Type: ICD-10; SAM ENCISO Dr, [facility] [address] , [facility] 3 10:18:48 Edema of lower leg 314427232 Active [address], [facility] [address] , [facility] 3 14:13:38 Restless legs 18164244 Active [address], [facility] [address] , [facility] 3 11:31:07 Active immuniza tion Active 2022 Problem Code: Z23; Problem Code Type: ICD-10; Not Available [facility] 4 05:37:46 Supinati on deformit y of foot 562846724 Active 2023 Jing STANLEY MD [address], [place], [address] , [facility] 4 08:41:10 Tobacco dependen ce caused by cigarett es 88292157866 272759 Active 2023 Problem Code: F17.210; Problem Code Type: ICD-10; DAMARI CHAPMAN APRN [address], [place], [address] , [facility] 4 04:29:59 Problem Notes None recorded. Medical Equipment None Reported. Allergies Allergen ID Allergen Name Allergen Category Reaction Reaction Severity Criticality Documentation Date Start Date Code Code System Note Provider Name and Address Organization Details Recorded Time 79653 prednison e medicatio n other moderate Not available 06/03/20232010 8640 RxNorm Aggit ation Aller gyRea ction : 'Aggi tatio n'; Not Available [facility] 3 16:21:47 96249 morphine sulfate medicatio n dyspnea Not available Not available 06/03/20232015 73514 RxNorm SOB Aller gyRea ction : 'SOB' ; Not Available [facility] 3 16:21:47 89024 Imitrex medicatio n hives Not available Not available 05/21/2024 53516 3 RxNorm RICH [place], [facility] 4 12:19:32 Medications Name Sig Start Date Stop Date Status Note LastModified by Organization Details LastModified Time fluoxetin e 40 mg capsule TAKE 1 CAPSULE BY ORAL ROUTE 1 TIME PER DAY active Not Available Not Available No t Available atorvasta tin 40 mg tablet 1 TAB BY MOUTH EVERY DAY active Not Available Not Available No t Available lamotrigi ne 200 mg tablet Take 1 tablet by mouth at bedtime 02/02 completed Not Available Not Available Not Available divalproe x 250 mg tablet,de layed release 1 capsule sprinkle over yogurt in the morning 04/12 completed Not Available Not Available Not Available Vitamin C 500 mg tablet TAKE 2 TABLETS EVERY DAY BY ORAL ROUTE. 2023 active Not Available Not Available Not Avai lable trazodone 50 mg tablet Take 1 tablet by mouth at bedtime active Not Available Not Available No t Available ibuprofen 800 mg tablet Take 1 tablet by mouth every eight hours as needed for pain Hold aspirin if using 07/08 completed Not Available Not Available Not Available tizanidin e 4 mg tablet TAKE 1 TABLET BY MOUTH AT BEDTIME active Not Available Not Available No t Available prazosin 1 mg capsule 4 capsuls at bedtime 04/12 completed Not Available Not Available Not Available senna 8.6 mg tablet TAKE 2 TABLET BY MOUTH AT NOON 2023 active Not Available Not Available Not Avai lable Nicorette 2 mg gum chew 1 piece every 2-4 hours for 3 weeks, then 1 piece every 4-8 hours for 3 weeks; then stop 12/30 completed Not Available Not Available Not Available isosorbid e mononitra te ER 30 mg tablet,ex tended release 24 hr TAKE 1 TAB TABLET BY MOUTH ONCE A DAY active Not Available Not Available No t Available clonazepa m 0.5 mg tablet TAKE 1 TABLET BY ORAL ROUTE PER AT BEDTIME NEEDED ONLY FOR BREAKTHR OUGH ANXIETY. active 1 tablet by mouth once a day at bedtime Not Available Not Available Not Available fluoxetin e 10 mg tablet Take 1 tablet by mouth once a day 06/14 completed Not Available Not Available Not Available cyanocoba mario (vit B-12) 1,000 mcg tablet Take 1 tablet by mouth at Noon active Not Available Not Available No t Available omeprazol e 40 mg capsule,d elayed release Take 1 capsule every day by oral route. active Not Available Not Available No t Available aspirin 81 mg tablet,de layed release 1 TAB TABLET BY MOUTH ONCE A DAY 2023 active Not Available Not Available Not Avai lable acetamino phen 500 mg tablet TAKE 1 TABLET 3 TIMES A DAY BY ORAL ROUTE WITH MEALS. 2023 active Not Available Not Available Not Avai lable prazosin 5 mg capsule Take 1 capsule PO QHS active Not Available Not Available No t Available Nicoderm CQ 7 mg/24 hr daily transderm al patch 1 patch to skin once a day for six weeks 07/23 completed Not Available Not Available Not Available famotidin e 20 mg tablet Take 1 tablet by mouth once a day 07/15 completed Not Available Not Available Not Available magnesium oxide 400 mg (241.3 mg magnesium ) tablet 1 TAB BY MOUTH AT BEDTIME 2023 active Not Available Not Available Not Avai lable Vitamin C 1,000 mg tablet Take 1 tablet by mouth once a day 10/19 completed Not Available Not Available Not Available miconazol e nitrate (bulk) powder apply 2 times daily 08/04 completed Not Available Not Available Not Available Nicoderm CQ 14 mg/24 hr daily transderm al patch Apply 1 patch to skin once a day alternat ing arms for six weeks then switch to Nicoderm CQ 7mg. 07/23 completed Not Available Not Available Not Available levothyro xine 50 mcg tablet TAKE 1 TAB TABLET BY MOUTH ONCE A DAY active Not Available Not Available No t Available cephalexi n 500 mg capsule Take 1 capsule every 6 hours by oral route for 5 days. 07/23 completed Not Available Not Available Not Available ferrous sulfate 325 mg (65 mg iron) tablet Take 1 tablet by mouth three times a week 06/09 completed Not Available Not Available Not Available divalproe x 125 mg tablet,de layed release Take by mouth as directed as directed 1 tablet every morning and 2 tablets in the evening. 07/08 completed Not Available Not Available Not Available fluoxetin e 10 mg capsule 06/14 completed Not Available Not Available Not Available Advair Diskus 500 mcg-50 mcg/dose powder for inhalatio n Inhale 1 puff as directed twice a day 04/12 completed Not Available Not Available Not Available nitroglyc duke 0.4 mg sublingua l tablet Place 1 under the tongue every 5 minutes for chest pain, ma repeat x 3 active Not Available Not Available No t Available docusate sodium 100 mg capsule TAKE 1 CAPSULE BY MOUTH TWICE A DAY 2023 active Not Available Not Available Not Avai lable omeprazol e 20 mg capsule,d elayed release Take 1 capsule by mouth once a day as needed 10/19 completed Not Available Not Available Not Available polyethyl dusty glycol 3350 17 gram/dose oral powder 1/2 CAP BY MOUTH TWICE A DAY 2023 active Not Available Not Available Not Avai lable albuterol sulfate HFA 90 mcg/actua tion aerosol inhaler Inhale 1-2 puff using inhaler every six hours as needed active Not Available Not Available No t Available Ibuprofen IB 200 mg tablet Take 2 tablet by mouth once a day 05/12 completed Not Available Not Available Not Available fluoxetin e 20 mg capsule Take 1 capsule by mouth once a day 08/04 completed Not Available Not Available Not Available divalproe x 125 mg capsule,d elayed release sprinkle 2 capsules in AM and 3 capsules QHS active Not Available Not Available No t Available lamotrigi ne 100 mg tablet Take 1 tablet every day by oral route. 04/12 completed Not Available Not Available Not Available prazosin 2 mg capsule Take 3 capsule by mouth at bedtime 06/09 completed Not Available Not Available Not Available Acidophil us capsule Take 2 capsule by mouth twice a day 06/09 completed Not Available Not Available Not Available oxycodone 5 mg tablet TAKE ONE TABLET BY MOUTH EVERY 4 HOURS NEEDED FOR PAIN (SCALE 4-10) 07/08 completed Not Available Not Available Not Available calcium 200 mg (as calcium citrate 950 mg) tablet TAKE 1 TABLET BY MOUTH TWICE A DAY 2024 active Not Available Not Available Not Avai lable divalproe x ER 250 mg tablet,ex tended release 24 hr Take 1 tablet by mouth at bedtime 02/21 completed Not Available Not Available Not Available cholecalc iferol (vitamin D3) 25 mcg (1,000 unit) tablet Take 3 tablet by mouth at bedtime 06/09 completed Not Available Not Available Not Available diclofena c 1 % topical gel Apply 2-4 gram to affected area once a day 07/14 completed Not Available Not Available Not Available cholecalc iferol (vitamin D3) 50 mcg (2,000 unit) tablet [...] health Not Available Not Available Not Available Preparati on H 0.25 %-14 %-74.9 % ointment Apply 1 a small amount to affected area four times a day as needed around rectum- Bedside may self administ er 2022 active Not Available Not Available Not Avai lable Spiriva Respimat 2.5 mcg/actua tion solution for inhalatio n Inhale 2 puff as directed every night 06/09 completed Not Available Not Available Not Available Incruse Ellipta 62.5 mcg/actua tion powder for inhalatio n INHALE 1 PUFF EVERY DAY BY INHALATI ON ROUTE. active Not Available Not Available No t Available Breo Ellipta 200 mcg-25 mcg/dose powder for inhalatio n Inhale 1 puff every day by inhalati on route. active Not Available Not Available No t Available Wixela Inhub 100 mcg-50 mcg/dose powder for inhalatio n INHALE 1 PUFF BY MOUTH TWICE A DAY 03/06 completed Not Available Not Available Not Available Salonpas 3.1 %-10 %-6 % topical patch Apply patch in AM and off QHS 2023 active Not Available Not Available Not Avai lable lidocaine HCl 4 % topical patch Apply 1 patch to skin as directed 12 hours on 12 hours off as needed active Not Available Not Available No t Available Lagevrio 200 mg capsule (EUA) TAKE 4 CAPSULES BY MOUTH EVERY 12 HOURS FOR 5 DAYS 04/12 completed Not Available Not Available Not Available Vitals Date Recorded Body height Body mass index (BMI) Body weight Body temperature Oxygen saturation Oxygen saturation in Arterial blood by Pulse oximetry Heart rate Respiratory rate Systolic blood pressure Diastolic blood pressure Provider Name and Address Organization Details Last Updated DateTime 4 157.48 cm 29.9 kg/m2 82179.9 6 g 98.3 [degF] 96 % 96 % 61 /min 16 /min 106 mm[Hg] 65 mm[Hg] Moira Morris MA [place] [facility] 4 12:18:34 Social History Question Answer Notes LastModified by Organizat ion Details LastModified Time Tobacco Smoking Status Former Smoker Moira Morris MA [facility], [place] [facility]. 05/21/2024 12:20:36 When Did You Quit Smoking? 1-5yearssin yaniv pedersen Quit April 26, 2024 [email or web address] Information not available 05/21/2024 What Was The Date Of Your Most Recent Tobacco Screening? 05/21/2024 [email or web address] Information not available 05/21/2024 What Is Your Current Pack Years? 30ormorepac kyears Information not available 10/20/2023 At What Age Did You Start Smoking Tobacco? 11 Information not available 10/20/2023 How Much Tobacco Do You Smoke? 2 PPW Information not available 10/20/2023 Has Tobacco Cessation Counseling Been Provided? Yes Information not available 10/20/2023 On What Date Was Tobacco Cessation Counseling Provided? 05/21/2024 Information not available 05/21/2024 How Many Years Have You Smoked Tobacco? 50 Information not available 10/20/2023 Do You Or Have You Ever Used Any Other Forms Of Tobacco Or Nicotine? No Information not available 10/20/2023 Sex: Female Functional Status None recorded. Mental Status None recorded. Family History Nothing Reported Notes:*Problem: Mother- anxi ety, depression, CHF, HTN, lung CA, multiple sclerosis Father- depression, CAD, HTN, obesity, Diabetes Siblings- sister, cervical cancer Other: leukemia in uncle CAD: maternal grandmother, maternal grandfather, paternal grandmother Medical History No medical history recorded. Gynecological HistoryNo gynecological history recorded. Obstetrics History GPAL:G 0 P 0 0 0 0 Immunizations Vaccine Type Date Status Note Provider Nam e and Address Organization Details Recorded Time Tdap 8 completed Not Available [facility] 06/03/2023 04:40:27 zoster live 0 completed Not Available [facility] 06/03/2023 04:40:27 zoster live 2 completed Not Available [facility] 06/03/2023 04:40:27 Td(adult) unspecified formulation 7 completed Not Available [facility] 06/03/2023 04:40:27 SARS-COV-2 (COVID-19) vaccine, UNSPECIFIED 1 completed Not Available [facility] 06/03/2023 04:40:27 SARS-COV-2 (COVID-19) vaccine, UNSPECIFIED 1 completed Not Available [facility] 06/03/2023 04:40:27 SARS-COV-2 (COVID-19) vaccine, UNSPECIFIED 2 completed Not Available [facility] 06/03/2023 04:40:28 SARS-COV-2 (COVID-19) vaccine, UNSPECIFIED 1 completed Not Available [facility] 06/03/2023 04:40:28 Pneumococcal conjugate PCV20, polysaccharide [id number] conjugate, adjuvant, PF 2 completed Not Available [facility] 06/03/2023 04:40:28 pneumococcal polysaccharide PPV23 8 completed Not Available [facility] 06/03/2023 04:40:29 pneumococcal polysaccharide PPV23 7 completed Not Available [facility] 06/03/2023 04:40:29 influenza, unspecified formulation 0 completed Not Available [facility] 06/03/2023 04:40:29 influenza, unspecified formulation 2 completed Not Available [facility] 06/03/2023 04:40:30 influenza, unspecified formulation 7 completed Not Available [facility] 06/03/2023 04:40:30 influenza, unspecified formulation 6 completed Not Available [facility] 06/03/2023 04:40:30 influenza, unspecified formulation 1 completed Not Available [facility] 06/03/2023 04:40:30 influenza, unspecified formulation 5 completed Not Available [facility] 06/03/2023 04:40:30 influenza, unspecified formulation 8 completed Not Available [facility] 06/03/2023 04:40:31 COVID-19, mRNA, LNP-S, PF, mike-sucrose, 30 mcg/0.3 mL 4 completed DAMARI CHAPMAN, [address], [place], [address], [facility] 04/12/2024 15:44:26 Influenza, split virus, trivalent, PF 4 completed DAMARI CHAPMAN APRN [address], [place], [address], [facility] 04/12/2024 15:44:26 COVID-19, mRNA, LNP-S, PF, mike-sucrose, 30 mcg/0.3 mL 3 completed DAMARI CHAPMAN APRN [address], [place], [address], [facility] 06/30/2023 13:41:28 Influenza, split virus, quadrivalent, PF 3 completed Not Available [facility] 08/05/2023 05:33:03 Past Encounters Encounter ID Performer Location Encounter Start Date Encounter Closed Date Diagnosis/Indication Diagnosis SNOMED-CT Code Diagnosis ICD10 Code Diagnosis Note [id number] MAGED COLLAZO, [address] [place] [address] 05/21/2024 11:51:17 05/21/2024 12:53:46 Cellulitis of perineum [id number] L03.315 63 year old female with onset of tender, painful lump to R labia majora 5 days ago, that has since opened and spontaneou sly drained with improvemen t in symptoms, but still with a small, tender area of firmness. No fevers. Today, site does appear to be resolving, with only mild surroundin g redness. We discussed use of cephalexin 500 mg QID X 5 days, continued warm compresses for resolving abscess and any subsequent surroundin g cellulitis /soft tissue infection. Health Concerns Section Related Observation LastModified by Organization Detai ls LastModified Time None Recorded Concern Status LastModified by Organization Details LastModified Time None Recorded Payers Encounter Date Sequence Insurance Name Policy Number Policy Brar Covered Member ID Brar Member ID Guarantor Name 05/21/2024 1 [place] [employer] Jeannie Rico [id number] Jeannie Rico 05/21/2024 2 [facility] (MEDICAID) Jeannie Rico [id number] Jeannie Rico Notes Date Note Type Note Provider Name and Address Organization Details Recorded Time 05/21/2024 text/html Patient with lar ge, painful swollen lump to R labia, first noted 5 days ago, tender to even sit or put any pressure to perineal region. Since onset, the site has opened and spontaneously drained, but still with a small amount of local swelling.Denies any recent fevers.Has been treating with warm washcloth/compresse s. Has had history of boils to underarms. Lives in assisted living facility. Does wear diapers due to urinary incontinence, but has not been wearing the last 4 days due to local tenderness. MAGED COLLAZO, MOUNTER [address], [place], [address], [facility]. 05/21/2024 12:58:27 OBGyn Episode No OBEpisode recorded.
--- OUTSIDE RECORDS SUMMARY | 2024-08-01 18:28 | XMS_ITS | Encounter Summary ---
[place] [address] Care Team Providers Care Professional Soccer Player Name Role Phone Hoang Castellanos APRN Primary Care Provider Encounter Details Date Type Department Care Team (Latest Contact Info) Description 07/13/2023 12:30 PM EST Laboratory Appointment Lab [address] [place] [id number] S/P gastric bypass; Disorder of iron metabolism; [...] in a nursing home (including now)? No 04/14/2023 Sex and Gender Information Value Date Recorded Sex Assigned at Not on file Gender Identity Not on file Sexual Orientation Not on file documented as of this encounter Plan of Treatment Not on file documented as of this encounter Procedures Procedure Name Priority Date/Time Associated Diagnosis Comments PTH Routine 07/13/2023 12:38 PM EST S/P gastric bypass Disorder of iron metabolism Intestinal malabsorption, unspecified type HEMOGRAM Routine 07/13/2023 12:38 PM EST S/P gastric bypass Disorder of iron metabolism Intestinal malabsorption, unspecified type VITAMIN B1, WHOLE BLOOD Routine 07/13/2023 12:38 PM EST S/P gastric bypass Disorder of iron metabolism Intestinal malabsorption, unspecified type IRON AND TIBC Routine 07/13/2023 12:38 PM EST S/P gastric bypass Disorder of iron metabolism Intestinal malabsorption, unspecified type VITAMIN D, 25-HYDROXY Routine 07/13/2023 12:38 PM EST S/P gastric bypass Disorder of iron metabolism Intestinal malabsorption, unspecified type FOLATE, SERUM Routine 07/13/2023 12:38 PM EST S/P gastric bypass Disorder of iron metabolism Intestinal malabsorption, unspecified type FERRITIN Routine 07/13/2023 12:38 PM EST S/P gastric bypass Disorder of iron metabolism Intestinal malabsorption, unspecified type VITAMIN B12 Routine 07/13/2023 12:38 PM EST S/P gastric bypass Disorder of iron metabolism Intestinal malabsorption, unspecified type COMPREHENSIVE METABOLIC PANEL Routine 07/13/2023 12:38 PM EST S/P gastric bypass Disorder of iron metabolism Intestinal malabsorption, unspecified type documented in this encounter Results * (ABNORMAL) Comprehensive metabolic panel (non-fasting) (07/13/2023 12:38 PM EST) Glucose 131 65 - 199 mg/dL [facility] Comment:Diabetes: >=200 mg/d L plus symptoms Blood Urea Nitrogen 24(H) 8 - 18 mg/dL [facility] Creatinine 0.69(L) 0.70 - 1.20 mg/dL [facility] Sodium 139 135 - 145 mmol/L [facility] Potassium 4.5 3.5 - 5.0 mmol/L [facility] Comment: Please note: ??Patients with WBC >100,000 may have falsely elevated Potassium levels. ??For accurate Potassium quantification in these patients send serum separator tube (gold top) for subsequent determinations. ??Contact the Clinical Chemistry Laboratory if there are any questions. Chloride 100 98 - 107 mmol/L [facility] Carbon Dioxide 30 22 - 31 mmol/L [facility] Anion Gap 9 5 - 15 mmol/L [facility] Calcium 10.0 8.5 - 10.5 mg/dL [facility] Protein, Total 6.9 6.1 - 8.0 g/dL [facility] Albumin 4.4 3.2 - 5.2 g/dL [facility] Aspartate Aminotransferase 20 0 - 30 unit/L [facility] Alanine Aminotransferase 21 0 - 30 unit/L [facility] Alkaline Phosphatase 97 35 - 105 unit/L [facility] Bilirubin, Total <0.2(L) 0.2 - 1.3 mg/dL [facility] Est Glomerular Filtration Rate 97 >=60 mL/min/1. 73 m?? [facility] Comment: This patient's estimated GFR was [...] APRN CHEMISTRY ORDERA BLES Performing Organization Address [facility] Co de Phone Number [facility] [place] [place] [address] * Ferritin (07/13/2023 12:38 PM EST) Ferritin 46 11 - 328 ng/mL [facility] Comment: Please note that as of 06/29/2023, the reference intervals for Ferritin have been updated. Blood 07/13/2023 12:3 8 PM EST 07/13/2023 12:43 PM EST Narrative Resulting Agency Comment Spec In Lab Priya Charles APRN CHEMISTRY ORDERA BLES Performing Organization Address City/[facility]/ZIP Co de Phone Number [facility] [place] [address] * Folate, serum (07/13/2023 12:38 PM EST) Folate 16.5 4.8 - 24.2 ng/mL [facility] Blood 07/13/2023 12:3 8 PM EST 07/13/2023 12:43 PM EST Narrative Resulting Agency Comment Spec In Lab Priya Charles WATER SERVER CHEMISTRY ORDERA BLES [facility] [place] [address] * (ABNORMAL) Hemogram (07/13/2023 12:38 PM EST) White Blood Cell 11.1(H) 4.0 - 9.5 x10(3)/mc L [facility] Red Blood Cell 4.53 4.00 - 5.21 x10(6)/mc L [facility] Hemoglobin 14.3 11.7 - 15.5 g/dL [facility] Hematocrit 44.5 35.7 - 45.8 % [facility] Mean Cell Volume 98.2(H) 82.6 - 94.4 fL [facility] Mean Cell Hemoglobin 31.6 27.1 - 32.0 pg [facility] Mean Cell Hemoglobin Concentration 32.1 31.7 - 35.0 g/dL [facility] Platelet 226 145 - 357 x10(3)/mc L [facility] RDW Standard Deviation 52.4(H) 37.0 - 46.0 fL [facility] RDW coefficient of variation 14.4(H) 11.5 - 14.1 % [facility] Mean Platelet Volume 9.4 7.6 - 12.9 fL [facility] NRBC% auto 0.0 % [facility] NRBC Absolute 0.000 0.000 - 0.000 x10(3)/mc L [facility] Blood 07/13/2023 12:3 8 PM EST 07/13/2023 12:43 PM EST Narrative Resulting Agency Comment Spec In Lab Priya Charles APRN HEMATOLOGY ORDER MORENO [facility] [place] [address] * Iron and TIBC (07/13/2023 12:38 PM EST) Iron 74 30 - 150 mcg/dL [facility] TIBC 344 250 - 450 mcg/dL [facility] Iron Saturation 22 20 - 50 % [facility] Blood 07/13/2023 12:3 8 PM EST 07/13/2023 12:43 PM EST Narrative Resulting Agency Comment Spec In Lab Priya Charles APRN CHEMISTRY ORDERA BLES Performing Organization Address [facility] de Phone Number [facility] [place] [address] * PTH (07/13/2023 12:38 PM EST) Parathyroid Hormone 46 15 - 65 pg/mL [facility] Blood 07/13/2023 12:3 8 PM EST 07/13/2023 12:43 PM EST Narrative Resulting Agency Comment Spec In Lab Priya Charles APRN CHEMISTRY ORDERA BLES Performing Organization Address [facility] de Phone Number [facility] [place] [address] * (ABNORMAL) Vitamin B1, whole blood (07/13/2023 12:38 PM EST) Vit B1 Lvl Wb (NOVEMBER) 189(H) 70 - 180 nmol/L [facility] Comment: ADDITIONAL INFORMATION This test was developed and its performance characteristics determined by [facility] in a manner consistent with CLIA requirements. This test has not been cleared or approved by the U.S. Food and Drug Administration. Test Performed by: [facility] - [address] [address] Ambulance Officer: Skinny Reyes M.D. Ph.D.; CLIA# [id number] Blood 07/13/2023 12:3 8 PM EST 07/14/2023 9:55 AM EST Narrative Resulting Agency Comment Spec In Lab Priya Charles APRN LAB SEND OUT ORD ERABLES Performing Organization Address [facility] Co de Phone Number [facility] [place] [address] * (ABNORMAL) Vitamin B12 (07/13/2023 12:38 PM EST) Vitamin B12 1,754(H) 232 - 1,245 pg/mL [facility] Blood 07/13/2023 12:3 8 PM EST 07/13/2023 12:43 PM EST Narrative Resulting Agency Comment Spec In Lab Priya Charles APRN CHEMISTRY ORDERA BLES [facility] [place] [address] * Vitamin D, 25-Hydroxy (07/13/2023 12:38 PM EST) Vitamin D Total 25 OH 56 21 - 100 ng/mL [facility] Vit D Interp Sufficient [facility] Blood 07/13/2023 12:3 8 PM EST 07/13/2023 12:43 PM EST Narrative Resulting Agency Comment Spec In Lab Priya Charles APRN CHEMISTRY ORDERA BLES Performing Organization Address City/[facility]/ZIP Co de Phone Number [facility] [place] [address] documented in this encounter Visit Diagnoses Diagnosis S/P gastric bypass Bariatric surgery status Disorder of iron metabolism Other disorders of iron metabolism Intestinal malabsorption, unspecified type documented in this encounter Care Teams Professional Soccer Player Relationship Specialty Start Date End Date Hoang Castellanos APRN [address] [place] [address] PCP - General Family Medicine 03/12/20 documented as of this encounter
--- OUTSIDE RECORDS SUMMARY | 2024-08-01 18:28 | XMS_ITS | Encounter Summary ---
Author Organization [facility] [place] [address] Care Team Providers Care Tile Installer Name Role Phone Hoang Castellanos APRN Primary Care Provider Reason for Visit * Reason Comments Establish Care Encounter Details Date Type Department Care Team (Late st Contact Info) Description 07/13/2023 1:30 PM EST Office [place] [address] Jessica Mcfarland APRN [facility] [address] Meena Hastings, JEREMY S/P gastric bypass; Disorder of iron metabolism; [...] slept in a long-term (including now)? No 04/14/2023 Sex and Gender [...] encounter Patient Instructions * Patient Instructions* Jessica Mcfarland APRN - 07/13/2023 1:30 PM EST [facility] credit support counselor Lela [phone] and [place] [phone] Dietitians: [phone] Surgeons/ nurse practitioners: [phone] Nurse line: [phone] Dear Jeannie, Please see your electronic medical record note from today for details we discussed at your visit. Below is some additional general information that you may find helpful. Testing: It would be helpful if you can have your lab work drawn a couple days before your visit guerline [facility] facility so the results are available at the time of your follow up visit. If you have labwork done by your primary care transition manager before that date, please have a copy sent to the Bariatric Surgery Program. Please call/send my ONStor message if you have not heard from us within 2 weeks of having labs work done. Here's the link to [facility] Lab hours and locations: [email or web address] Next visit: Follow up visits are done at 4 months and 12 months after surgery and yearly thereafter. Some patients are evaluated on a more frequent basis. Please call [phone] if you do not receive an appointment [...] Blow dry area on low setting with fine arts chair. Avoid excessive heat and/or sweating as friction [...] such as Ibuprofen (Advil), Aleve (Naproxen), Excedrin, [place] should be used sparingly after gastric bypass, [...] Our post surgery support group meets at [facility] on the first Tuesday of every month from 1:00 PM-2:00 PM. You can attend online or in person. Use the following link to attend online: [email or web address] Nutrition and Activity apps- Baritastic, My Fitness Pal, Lose It, My Plate Internet resources: www.bMobilized wwwNeoprospecta www.bariatriceaAsset Tracking Technologies.[place] www.[employer].[place]/blog [facility] facebook page: https://www.facebook.com/[facility]ric[facility] Books & Magazines: - Recipes for Life After Weight Loss Surgery by Suly Cruz - Shrink Yourself by Dr Juan Carlos Carlos - Eating Well - www.LEID Products.[place] - Cooking Light- www.cookinglight.[place] Anxiety: The Happiness Trap by Efren Richey The Mindfulness and acceptance workbook for anxiety By Jose A Acosta. Mindful eating: What are you Hungry For? By Ricardo Murray The Mindful Diet by Katerine Nelson and the [facility] group. Emotional eating: End Emotional Eating by Tamar Russo Calming the Emotional Storm Jessica Hayes documented in this encounter Progress Notes * Jessica Mcfarland APRN - 07/13/2023 1:30 PM [place] [address] Reason for visit: Bariatric Surgery follow up visit Subjective: Jeannie Rico is s/p partitioned, non-divided Genesis en Y gastric bypass on 05/12/[address] Trejo. Last seen in 2019. Jeannie is reestablishing care for support with supplements and diet. Jennifer lives in an assisted living facility ([facility]). She is seeking for our team to [...] has prescribed Miralax and sees her at [facility]). Taking PRN omeprazole and daily famotidine. Endorses GERD (rare regurgitation and heartburn unsure of frequency). Supplements: Per list from [place] No MV B12 1000 mcg daily Blood Builders [...] bariatric eating behaviors. JEREMY has contacted [facility] and discussed meal plan with Daniella (professional nursing tutor), who states gluten free meal plan has been discontinued. Discussed risks associated with alcohol intake after bariatric surgery (increased risk of alcohol misuse/abuse, increased risk of ulcers, empty calorie). Patient has met with signs sales representative today, please see note for additional details/dietary [...] lab results as above. Labs faxed to [facility] for PCP review. Reviewed recommended vitamin/mineral supplements- recommendations sent to [facility] (by JEREMY ramey reviewed recommendations with [facility] by phone) and shared with PCP via EDH. As below: These are the bariatric surgery supplements we recommend: -Multivitamin with iron and minerals twice a day (the recommendation for all bariatric surgery patients is 2x the ASSET PROTECTION PROFESSIONAL) -Continue B12 1000 mcg once a day [...] is availabe for patient's review via e- I spent a total 60 minutes associated [...] labwork is done by the primary care transition manager: please send a copy to the Bariatric Surgery Program, General Surgery Clinic, [facility], or fax [phone] Meena Lewis, RD - 07/13/2023 1:30 PM EST Bariatric [...] cost. Advised pt that I would call [facility] facility to review vitamin and mineral supplement recommendations Pt also reported that she was instructed to follow a gluten-free diet at the [facility] for inflammation. Advised pt that I would also discuss her dietary restrictions with the [facility] Reclamation Engineer. 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 OBJECTIVE: Type of Surgery: non-divided RNY gastric [...] 07/13/23 203# 64% 34.8 23 years post-op Rover Body Weight (based on BMI of 25): [...] Premier protein, chex cereal w/ LF milk, / banana, 1/4 c yogurt, coffee AM Snack [...] to follow a gluten-free diet at the [facility] for inflammation, advised pt that I woulddiscuss her dietary restrictions with the [facility] Reclamation Engineer to further understand the reasoning for the [...] listed above. Advised pt that Iwould call [facility] facility to review vitamin and mineral supplement [...] 25 OH 56 21 - 100 ng/mL [facility] Vit D Interp Sufficient [facility] Blood 07/13/2023 12:3 8 PM EST 07/13/2023 12:43 PM EST Narrative Resulting Agency Comment Spec In Lab Priya Charles BELT NOTCHER CHEMISTRY ORDERA BLES [facility] [place] [address] * (ABNORMAL) Vitamin B12 (07/13/2023 12:38 PM EST) Vitamin B12 1,754(H) 232 - 1,245 pg/mL [facility] Blood 07/13/2023 12:3 8 PM EST 07/13/2023 12:43 PM EST Narrative Resulting Agency Comment Spec In Lab Priya Charles APRN CHEMISTRY ORDERA BLES Performing Organization Address City/[facility] Co de Phone Number [facility] [place] [address] * (ABNORMAL) Vitamin B1, whole blood (07/13/2023 12:38 PM EST) Vit B1 Lvl Wb (NOVEMBER) 189(H) 70 - 180 nmol/L [facility] Comment: ADDITIONAL INFORMATION This test was developed and its performance characteristics determined by [facility] in a manner consistent with CLIA requirements. This test has not been cleared or approved by the U.S. Food and Drug Administration. Test Performed by: [facility] [place] [address] Manager Dairy: Skinny Reyes M.D. Ph.D.; CLIA# [id number] Blood 07/13/2023 12:3 8 PM EST 07/14/2023 9:55 AM EST Narrative Resulting Agency Comment Spec In Lab Priya Charles APRN LAB SEND OUT ORD ERABLES Performing Organization Address [facility]/ZIP Co de Phone Number [facility] [place] [address] * PTH (07/13/2023 12:38 PM EST) Parathyroid Hormone 46 15 - 65 pg/mL [facility] Blood 07/13/2023 12:3 8 PM EST 07/13/2023 12:43 PM EST Narrative Resulting Agency Comment Spec In Lab Priya M Lowden BELT NOTCHER CHEMISTRY ORDERA BLES [facility] [place] [address] * Iron and TIBC (07/13/2023 12:38 PM EST) Iron 74 30 - 150 mcg/dL [facility] TIBC 344 250 - 450 mcg/dL [facility] Iron Saturation 22 20 - 50 % [facility] Blood 07/13/2023 12:3 8 PM EST 07/13/2023 12:43 PM EST Narrative Resulting Agency Comment Spec In Lab Priya Charles APRN CHEMISTRY ORDERA BLES Performing Organization Address City/[facility] Co de Phone Number [facility] [place] [address] * (ABNORMAL) Hemogram (07/13/2023 12:38 PM EST) White Blood Cell 11.1(H) 4.0 - 9.5 x10(3)/mc L [facility] Red Blood Cell 4.53 4.00 - 5.21 x10(6)/mc L [facility] Hemoglobin 14.3 11.7 - 15.5 g/dL [facility] Hematocrit 44.5 35.7 - 45.8 % [facility] Mean Cell Volume 98.2(H) 82.6 - 94.4 fL [facility] Mean Cell Hemoglobin 31.6 27.1 - 32.0 pg [facility] Mean Cell Hemoglobin Concentration 32.1 31.7 - 35.0 g/dL [facility] Platelet 226 145 - 357 x10(3)/mc L [facility] RDW Standard Deviation 52.4(H) 37.0 - 46.0 fL [facility] RDW coefficient of variation 14.4(H) 11.5 - 14.1 % [facility] Mean Platelet Volume 9.4 7.6 - 12.9 fL [facility] NRBC% auto 0.0 % [facility] NRBC Absolute 0.000 0.000 - 0.000 x10(3)/mc L [facility] Blood 07/13/2023 12:3 8 PM EST 07/13/2023 12:43 PM EST Narrative Resulting Agency Comment Spec In Lab Priya Trinidad Lowden SAM HEMATOLOGY ORDER MORENO Performing Organization Address City/[facility] Co de Phone Number [facility] [place] [address] * Folate, serum (07/13/2023 12:38 PM EST) Folate 16.5 4.8 - 24.2 ng/mL [facility] Blood 07/13/2023 12:3 8 PM EST 07/13/2023 12:43 PM EST Narrative Resulting Agency Comment Spec In Lab Priya Ricoliher BELT NOTCHER CHEMISTRY ORDERA BLES Performing Organization Address [facility] Co de Phone Number [facility] [place] [address] * Ferritin (07/13/2023 12:38 PM EST) Ferritin 46 11 - 328 ng/mL [facility] Comment: Please note that as of 06/29/2023, the reference intervals for Ferritin have been updated. Blood 07/13/2023 12:3 8 PM EST 07/13/2023 12:43 PM EST Narrative Resulting Agency Comment Spec In Lab Priya Trinidad Lowden SAM CHEMISTRY ORDERA BLES Performing Organization Address [facility] Co de Phone Number [facility] [place] [address] * (ABNORMAL) Comprehensive metabolic panel (non-fasting) (07/13/2023 12:38 PM EST) Glucose 131 65 - 199 mg/dL [facility] Comment:Diabetes: >=200 mg/d L plus symptoms Blood Urea Nitrogen 24(H) 8 - 18 mg/dL [facility] Creatinine 0.69(L) 0.70 - 1.20 mg/dL [facility] Sodium 139 135 - 145 mmol/L [facility] Potassium 4.5 3.5 - 5.0 mmol/L [facility] Comment: Please note: ??Patients with WBC >100,000 may have falsely elevated Potassium levels. ??For accurate Potassium quantification in these patients send serum separator tube (gold top) for subsequent determinations. ??Contact the Clinical Chemistry Laboratory if there are any questions. Chloride 100 98 - 107 mmol/L [facility] Carbon Dioxide 30 22 - 31 mmol/L [facility] Anion Gap 9 5 - 15 mmol/L [facility] Calcium 10.0 8.5 - 10.5 mg/dL [facility] Protein, Total 6.9 6.1 - 8.0 g/dL [facility] Albumin 4.4 3.2 - 5.2 g/dL [facility] Aspartate Aminotransferase 20 0 - 30 unit/L [facility] Alanine Aminotransferase 21 0 - 30 unit/L [facility] Alkaline Phosphatase 97 35 - 105 unit/L [facility] Bilirubin, Total <0.2(L) 0.2 - 1.3 mg/dL [facility] Est Glomerular Filtration Rate 97 >=60 mL/min/1. 73 m?? [facility] Comment: This patient's estimated GFR was [...] Lab Priya Charles APRN CHEMISTRY ORDERA BLES [facility] [place] [address] documented in this encounter Visit Diagnoses Diagnosis S/P gastric bypass Bariatric surgery status Disorder of iron metabolism Other disorders of iron metabolism Intestinal malabsorption, unspecified type documented in this encounter Care Teams Tile Installer Relationship Specialty Start Date End Date Hoang Castellanos APRN [address] [place] [address] PCP - General Family Medicine 03/12/20 documented as of this encounter
--- OUTSIDE RECORDS SUMMARY | 2024-08-01 18:28 | XMS_ITS | Encounter Summary ---
Author Organization [facility] [place] [address] Care Team Providers Care Gardening Supervisor Name Role Phone Hoang Castellanos APRN [...] on filedocumented in this encounter Care Teams Gardening Supervisor Relationship Specialty Start Date End Date Hoang Castellanos, IT INFRASTRUCTURE PROJECT MANAGER [address] [place] [address] PCP - General Family Medicine 03/12/20 documented as of this encounter
--- OUTSIDE RECORDS SUMMARY | 2024-08-01 18:28 | XMS_ITS | Encounter Summary ---
Author Organization [facility] [place] [address] Care Team Providers Care Sr Account Executive Name Role Phone Hoang Castellanos APRN Primary Care Provider [phone] Encounter Details Date Type Department Care Team (Latest Contact Info) Description 05/13/2022 9:45 AM EDT Clinical Support Primary Care at [facility] [place] [address] Need for vaccination Social History [...] - 05/13/2022 9:45 AM EDT Flu Vaccine 4953-5082 Age Considerations Vaccine Name Pediatric [] 6 [...] had any of the following: History of Guillian-[place] Syndrome, allergy to eggs, or allergicreaction to [...] disease documented in this encounter Care Teams Sr Account Executive Relationship Specialty Start Date End Date Hoang Castellanos, BLANCHARD GRINDER OPERATOR [address] [place] [address] PCP - General Family Medicine 03/12/20 documented as of this encounter
--- OUTSIDE RECORDS SUMMARY | 2024-08-01 18:28 | XMS_ITS | Encounter Summary ---
Author Organization [facility] [place] [address] Care Team Providers Care Vendor Relationship Manager Name Role Phone Hoang Castellanos APRN Primary Care Provider Reason for Visit * Consultation (Routine) - Closed Specialty Diagnoses / Procedures Referred By Vanita t Referred To Contact Hematology and Oncology Diagnoses Macrocytosis Anemia, unspecified type Jolly Davenport APRN [address] [place] [address] [facility] [address] [place] [address] Referral ID Status Reason Start Date Expiration Date V isits Requested Visits Authorized [id number] Closed Consult, Test & Treat PCP Updated and/or Approved 03/31/2023 03/30/2024 12 12 Encounter Details Date Type Department Care Team (Late st Contact Info) Description 04/14/2023 3:00 PM EDT Office Visit Hematology/Oncology at [address] [address] Matthew Ortiz MD [facility] [address] [place] [address] Macrocytosis without anemia Social History [...] available records including old computer records at [facility] The patient has multiple medical problems [...] Rfl: 3 Miconazole Powder, 1 Application by [place].(Non-Drug; Combo Route) route 2 times daily., Disp: [...] organs documented in this encounter Care Teams Vendor Relationship Manager Relationship Specialty Start Date End Date Hoang Castellanos, QUANTITATIVE DEVELOPER [address] [place] [address] PCP - General Family Medicine 03/12/20 documented as of this encounter
--- OUTSIDE RECORDS SUMMARY | 2024-08-01 18:28 | XMS_ITS | Encounter Summary ---
Author Organization [facility] Address [facility] [place] [address] Care Team Providers Care Apartment Coordinator Name Role Phone Hoang Castellanos APRN Primary Care Provider Encounter Details Date Type Department Care Team (Late st Contact Info) Description 05/21/2022 Home Care Visit [facility] Choices for Care [address] [place] [phone] Farrah Jama [facility] [place] DISCHARGE Social History Tobacco Use [...] on filedocumented in this encounter Care Teams Apartment Coordinator Relationship Specialty Start Date End Date Hoang Castellanos, SAM [address] [place] [address] PCP - General Family Medicine 03/12/20 documented as of this encounter
--- OUTSIDE RECORDS SUMMARY | 2024-08-01 18:28 | XMS_ITS | Encounter Summary ---
Author Organization [facility] [place] [address] Care Team Providers Care City Comptroller Name Role Phone Hoang Castellanos APRN Primary Care Provider Encounter Details Date Type Department Care Team (Latest Contact Info) Description 05/26/2022 1:30 PM EDT TH Visit (TeleHealth) Primary Care at [facility] [address] [facility] [place] [phone] Hoang Castellanos APRN [address] [facility] [place] [address] Cervical spinal stenosis; Arthrodesis present; Right leg [...] slept in a snf (including now)? No 03/23/2022 Sex and Gender Information Value Date Recorded Sex Assigned at Not on file Gender Identity Not on file Sexual Orientation Not on file documented as of this encounter Progress Notes * Hoang Castellanos, ASSEMBLER ERECTOR - 05/26/2022 1:30 PM EDT [facility] Telehealth Encounter Nurse Call: Patient called to notify of telehealth visit. For patients in facilities or with caregivers, these were also notified. BEST PHONE NUMBER: [phone] Is this a cell phone number: yes [...] who presents for a telehealth visit with [facility] Primary Care. Concerns: 1. Paperwork Chronic care needs Urinary incontinence, occasional fecal incontinence RLE weakness Cervical stenosis, chronic neck pain PTSD/LAURA/bipolar disorder Moving to a facility in [facility] Will be switching her primary care Objective: VS: Physical Exam Assessment and Plan: Diagnoses and all orders for this visit: Cervical spinal stenosis Arthrodesis present Right leg weakness Administrative encounter On the day of this encounter, I the medical provider spent a total of at least 20 minutes providingthis patient's care. This includes time spent [id number] with the patient performing evaluation, examination, and counseling. It also includes non [id number] time preparing to see the patient, reviewing the chart, coordinating care, and documenting clinical information in the electronic health record. (Established patient total visit time: 76723 - 20min, 74836 - 30 min, 20416 - 40 min; New patient total visit times: 77056 - 30 min, 77541 - 45 min, 20277 - 60 min) Follow-up: No follow-ups on [...] unspecified documented in this encounter Care Teams City Comptroller Relationship Specialty Start Date End Date Hoang Castellanos APRN [address] [place] [address] PCP - General Family Medicine 03/12/20 documented as of this encounter
--- OUTSIDE RECORDS SUMMARY | 2024-08-01 18:28 | XMS_ITS | Continuity of Care Document ---
Author Organization [facility] Address [address] [place] [address] Assessment No assessment recorded. Plan of Treatment Reminders Order Date Submit Date Provider Last Modified By Organization Details Last Modified Time Details Appointments Home Visit 025 08:10AM DAMARI CHAPMAN Not available Not available Not available Lab None recorde d. Referral None recorde d. Procedures None recorde d. Surgeries None recorde d. Imaging None recorde d. Medication Orders None recorde d. Patient TargetsNo targets recorded. Patient InstructionsNo instructions recorded. Reason for Referral None Reported. Problems Name Problem SNOMED Code Status Onset Date Resolution Date Notes Provider Name and Address Organization Details Recorded Time Anxiety disorder 477093867 Active 2021 Problem Code: F41.9; Problem Code Type: ICD-10; [address], [place], [address] , [facility] 3 10:18:48 Arthrode sis Active 2021 Problem Code: Z98.1; Problem Code Type: ICD-Nany; [address], [place], [address] , [facility] 3 10:18:48 Asthma 749974774 Active 2021 Problem Code: J45.998; Problem Code Type: ICD-Nany; [address], [place], [address] , [facility] 3 10:18:48 Atherosc lerosis of coronary artery without angina pectoris 46673224827 4103 Active 2021 Problem Code: I25.10; Problem Code Type: ICD-10; [address], [place] [address] , [facility] 3 10:18:48 Karma l hyperten ejrson 72748735 Active 2021 Problem Code: I10; Problem Code Type: ICD-10; [address], [place] [address] , [facility] 3 10:18:48 Localize d edema 803037710 Active 2021 Problem Code: R60.0; Problem Code Type: ICD-10; [address], [address] 3 10:18:48 Bipolar disorder 23089272 Active 2021 Problem Code: F31.9; Problem Code Type: ICD-10; [address], [address] 3 10:18:48 Borderli ne personal ity disorder Active 2021 Problem Code: F60.3; Problem Code Type: ICD-10; [address], [place] [address] , [facility] 3 10:18:48 Bulimia nervosa 25482089 Active 2021 Problem Code: F50.2; Problem Code Type: ICD-10; [address], [place] [address] , [facility] 3 10:18:49 Cataract 291907576 Active 2021 Problem Code: H26.9; Problem Code Type: ICD-10; [address], [place] [address] , [facility] 3 10:18:48 Spinal stenosis in cervical region 81703098 Active 2021 Problem Code: M48.02; Problem Code Type: ICD-10; [address], [facility] [address] [place] [address] 3 10:18:49 Neck pain 52911413 Active 2021 Problem Code: M54.2; Problem Code Type: ICD-10; [address], [address] 3 10:18:49 Chronic obstruct kayden pulmonar y disease 91476714 Active 2021 Problem Code: J44.9; Problem Code Type: ICD-10; [address], [facility] [address] [place] [address] 3 10:18:48 Chronic pain 40766368 Active 2021 Problem Code: G89.29; Problem Code Type: ICD-10; [address], [facility] [address] [place] [address] 3 10:18:49 Arthralg ia of the ankle and/or foot 581481762 Active 2021 Problem Code: M25.579; Problem Code Type: ICD-10; [address], [facility] [address] [place] [address] 3 10:18:48 Major depressi on, single episode 39802872 Active 2021 Problem Code: F32.9; Problem Code Type: ICD-10; [address], [facility] [address] [place] [address] 3 10:18:48 Dizzines s and giddines s 675588560 Active 2021 Problem Code: R42; Problem Code Type: ICD-10; [address], [address] 3 10:18:48 Asthenia 46708261 Active 2021 Problem Code: R53.1; Problem Code Type: ICD-10; [address], [address] 3 10:18:48 Gastroes ophageal reflux disease without esophagi tis 666103990 Active 2021 Problem Code: K21.9; Problem Code Type: ICD-10; [address], [address] 3 10:18:48 Headache 51204777 Active 2021 Problem Code: R51.9; Problem Code Type: ICD-Nany; [address], [address] 3 10:18:48 Hyperlip idemia 27836454 Active 2021 Problem Code: E78.5; Problem Code Type: ICD-10; [address], [address] 3 10:18:48 Hypothyr oidism 14430020 Active 2021 Problem Code: E03.9; Problem Code Type: ICD-10; [address], [address] 3 10:18:48 Low back pain 195377373 Active 2021 Problem Code: M54.50; Problem Code Type: ICD-10; [address], [facility] [address] , [facility] 3 10:18:48 Obesity 364143510 Active 2021 Problem Code: E66.9; Problem Code Type: ICD-10; [address], [address] 3 10:18:48 Obstruct kayden sleep apnea syndrome 41836495 Active 2021 Problem Code: G47.33; Problem Code Type: ICD-10; [address], [address] 3 10:18:49 Osteoart hritis of multiple joints 478114365 Active 2021 Problem Code: M15.9; Problem Code Type: ICD-10; [address], [facility] [address] [place] [address] 3 10:18:48 Senile osteopor osis 49803797 Active 2021 Problem Code: M81.0; Problem Code Type: ICD-10; [address], [facility] [address] [place] [address] 3 10:18:48 Posttrau matic stress disorder 14594838 Active 2021 Problem Code: F43.10; Problem Code Type: ICD-10; [address], [facility] [address] [place] [address] 3 10:18:48 Seizure 86742244 Active 2021 Problem Code: R56.9; Problem Code Type: ICD-10; [address], [facility] [address] [place] [address] , [facility] 3 10:18:49 Nicotine dependen ce 26067839 Active 2021 Problem Code: Z87.891; Problem Code Type: ICD-10; [address], [address] 3 10:18:48 History of risk factor for suicide 26954402649 4103 Active 2021 Problem Code: Z91.51; Problem Code Type: ICD-10; [address], [address] 3 10:18:48 Vitamin D deficien cy 41719283 Active 2021 Problem Code: E55.9; Problem Code Type: ICD-10; [address], [address] 3 10:18:48 Vitamin B deficien cy 62609331 Active 2021 Problem Code: E53.8; Problem Code Type: ICD-10; [address], [address] 3 10:18:48 History of bariatri c surgical procedur e 582211818 Active 2021 Problem Code: Z98.84; Problem Code Type: ICD-10; [address], [place], [place], [address] [place] [address] 3 10:18:48 Prediabe chasity 234385191 Active 2021 Problem Code: R73.03; Problem Code Type: ICD-10; [address], [address] 3 10:18:49 Hemorrho ids 46873910 Active 2021 Problem Code: K64.9; Problem Code Type: ICD-10; [address], [place] [address] , [facility] 3 10:18:49 Constipa tion 91311916 Active 2021 Problem Code: K59.00; Problem Code Type: ICD-10; [address], [address] 3 10:18:48 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 498078790 Active 2021 Problem Code: H54.3; Problem Code Type: ICD-10; [address], [address] 3 10:18:48 Urinary incontin ence 802602236 Active 2021 Problem Code: R32; Problem Code Type: ICD-10; [address], [address] 3 10:18:48 History of malignan t neoplasm of ovary 484903471 Active 2021 Problem Code: Z85.43; Problem Code Type: ICD-10; [address], [address] 3 10:18:48 Screenin g mammogra phy Active 2022 Problem Code: Z12.31; Problem Code Type: ICD-10; [address], [address] 3 10:18:48 Solitary nodule of lung 357037384 Active 2022 Problem Code: R91.1; Problem Code Type: ICD-10; [address], [facility] [address] , [facility] 3 10:18:48 Anemia 806581780 Active 2022 Problem Code: D64.9; Problem Code Type: ICD-10; [address], [facility] [address] , [facility] 3 10:18:48 Disorder of hematopo ietic structur e 512519285 Active 2022 Problem Code: D75.89; Problem Code Type: ICD-10; [address], [facility] [address] [place] [address] 3 10:18:48 Pain in lower limb 01411423 Completed 202202/03/2023 Problem Code: M79.606; Problem Code Type: ICD-10; Not Available [facility] 3 05:27:04 Urinary tract infectio us disease 64327167 Completed 202106/18/2022 Problem Code: N39.0; Problem Code Type: ICD-10; Not Available [facility] 3 05:27:05 Tobacco dependen ce caused by cigarett es 69321118561 512722 Completed 202104/20/2023 Problem Code: F17.210; Problem Code Type: ICD-10; [address], [facility] [address] , [facility] 4 04:29:59 History of nutritio nal disorder 426509868 Completed 202109/09/2022 Not Available [facility] 3 05:27:05 Tobacco dependen ce caused by cigarett es 35203340907 460790 Completed 202208/23/2022 Problem Code: F17.210; Problem Code Type: ICD-10; DAMARI CHAPMAN APRN [address], [facility] [address] , [facility] 4 04:29:59 Nicotine dependen ce 12079622 Completed 202208/23/2022 Problem Code: F17.200; Problem Code Type: ICD-10; DAMARI CHAPMAN APRN [address], [facility] [address] , [facility] 3 10:18:48 Edema of lower leg 630785975 Active 2022 DAMARI CHAPMAN APRN [address], [facility] [address] [place] [address] 3 14:13:38 Restless legs 51123450 Active 2022 DAMARI CHAPMAN APRN [address], [facility] [address] [place] [address] 3 11:31:07 Active immuniza tion Active 2022 Problem Code: Z23; Problem Code Type: ICD-10; Not Available [facility] 4 05:37:46 Supinati on deformit y of foot 527412970 Active [address], [facility] [address] , [facility] 4 08:41:10 Tobacco dependen ce caused by cigarett es 58998192745 289105 Active 2023 Problem Code: F17.210; Problem Code Type: ICD-10; [address], [facility] [address] [place] [address] 4 04:29:59 Problem Notes None recorded. Medical Equipment None Reported. Allergies Allergen ID Allergen Name Allergen Category Reaction Reaction Severity Criticality Documentation Date Start Date Code Code System Note Provider Name and Address Organization Details Recorded Time 82315 prednison e medicatio n other moderate Not available 06/03/20232010 8640 RxNorm Aggit ation Aller gyRea ction : 'Aggi tatio n'; Not Available [facility] 3 16:21:47 23722 morphine sulfate medicatio n dyspnea Not available Not available 06/03/20232015 39735 RxNorm SOB Aller gyRea ction : 'SOB' ; Not Available [facility] 3 16:21:47 25094 Imitrex medicatio n hives Not available Not available 05/21/2024 46439 3 RxNorm Moira Morris MA [facility], [place] - [facility] 4 12:19:32 Medications Name Sig Start [...] Not Available Vitals Date Recorded Body height Heart rate Respiratory rate Body temperature Oxygen saturation Oxygen saturation in Arterial blood by Pulse oximetry Body mass index (BMI) Body weight Systolic blood pressure Diastolic blood pressure Provider Name and Address Organization Details Last Updated DateTime 4 157.48 cm 60 /min 17 /min 98.2 [degF] 96 % 96 % 28.9 kg/m2 95728.5 9 g 118 mm[Hg] 60 mm[Hg] DAMARI CHAPMAN APRN [address], [place], [address] [place] [address] 15:24:43 Social History Question Answer Notes LastModified by Organizat ion Details LastModified Time Tobacco Smoking Status Former Smoker Moira Morris MA [facility], [facility] 05/21/2024 12:20:36 When Did You Quit Smoking? 1-5yearssin celastcigar ette Quit April 26, 2024 [email or web address] Information not available 05/21/2024 What Was The Date Of Your Most Recent Tobacco Screening? 05/21/2024 [email or web address] Information not available 05/21/2024 What Is Your Current Pack Years? 30ormorepac rosita Information not available 10/20/2023 At What Age Did You Start Smoking Tobacco? 11 Information not available 10/20/2023 How Much Tobacco Do You Smoke? 2 PPW Information not available 10/20/2023 Has Tobacco Cessation Counseling Been Provided? Yes Information not available 10/20/2023 On What Date Was Tobacco Cessation Counseling Provided? 05/21/2024 [email or web address] Information not available 05/21/2024 How Many Years [...] Recorded Time Tdap 8 completed Not Available [facility] 06/03/2023 04:40:27 zoster live 0 completed Not Available [facility] 06/03/2023 04:40:27 zoster live 2 completed Not Available [facility] 06/03/2023 04:40:27 Td(adult) unspecified formulation 7 completed Not Available [facility] 06/03/2023 04:40:27 SARS-COV-2 (COVID-19) vaccine, UNSPECIFIED 1 completed Not Available [facility] 06/03/2023 04:40:27 SARS-COV-2 (COVID-19) vaccine, UNSPECIFIED 1 completed Not Available [facility] 06/03/2023 04:40:27 SARS-COV-2 (COVID-19) vaccine, UNSPECIFIED 2 completed Not Available [facility] 06/03/2023 04:40:28 SARS-COV-2 (COVID-19) vaccine, UNSPECIFIED 1 completed Not Available [facility] 06/03/2023 04:40:28 Pneumococcal conjugate PCV20, polysaccharide [id number] conjugate, adjuvant, PF 2 completed Not Available [facility] 06/03/2023 04:40:28 pneumococcal polysaccharide PPV23 8 completed Not Available [facility] 06/03/2023 04:40:29 pneumococcal polysaccharide PPV23 7 completed Not Available [facility] 06/03/2023 04:40:29 influenza, unspecified formulation 0 completed Not Available [facility] 06/03/2023 04:40:29 influenza, unspecified formulation 2 completed Not Available [facility] 06/03/2023 04:40:30 influenza, unspecified formulation 7 completed Not Available [facility] 06/03/2023 04:40:30 influenza, unspecified formulation 6 completed Not Available [facility] 06/03/2023 04:40:30 influenza, unspecified formulation 1 completed Not Available [facility] 06/03/2023 04:40:30 influenza, unspecified formulation 5 completed Not Available [facility] 06/03/2023 04:40:30 influenza, unspecified formulation 8 completed Not Available [facility] 06/03/2023 04:40:31 COVID-19, mRNA, LNP-S, PF, mike-sucrose, 30 mcg/0.3 mL 4 completed DAMARI CHAPMAN APRN [address], [place], [address], [facility] 04/12/2024 15:44:26 Influenza, split virus, trivalent, PF 4 completed DAMARI CHAPMAN APRN [address], [place], [address], [facility] 04/12/2024 15:44:26 COVID-19, mRNA, LNP-S, PF, mike-sucrose, 30 mcg/0.3 mL 3 completed DAMARI CHAPMAN APRN [address], [place], [address], [facility] 06/30/2023 13:41:28 Influenza, split virus, quadrivalent, PF 3 completed Not Available [facility] 08/05/2023 05:33:03 Past Encounters Encounter ID Performer Location Encounter Start Date Encounter Closed Date Diagnosis/Indication Diagnosis SNOMED-CT Code Diagnosis ICD10 Code Diagnosis Note [id number] DAMARI CHAPMAN APRN [facility] [address] [place] [address] 07/23/2024 14:26:28 07/23/2024 16:06:52 Supination deformity of foot 308819609 M21.6X9 Struggling with ambulation with new AFO. is home bound, does not leave [facility] because of her medical conditions and mobility. order PT for further evaluation and management . Health Concerns Section Related Observation LastModified by Organization Detai ls LastModified Time None Recorded Concern Status LastModified by Organization Details LastModified Time None Recorded Payers Encounter Date Sequence Insurance Name Policy Number Policy Brar Covered Member ID Brar Member ID Guarantor Name 07/23/2024 1 MEDICARE [place]: [employer] Jeannie Wadeeliz [id number] Jeannie Trisha 07/23/2024 2 [facility] (MEDICAID) Jeannie Trisha [id number] Jeannie Trisha Notes Date Note Type Note Provider Name and Address Organization Details Recorded Time 07/23/2024 text/html Virtual visit fo r FU: deformity of the foot. She went to [id number]. She has new orthopedic shoes and a brace. The brace is to the right foot, it is an AFO. Has no breakdown around the foot. When she walks, her right foot is flopping, she is having a hard time trying to walk/ control her ankle/ foot movement. does use her walker for ambulation. no pain or discomfort. Feels tripping at times. DAMARI CHAPMAN APRN [address], [place], [address], [facility]. 07/23/2024 15:43:49 OBGyn Episode No OBEpisode recorded.
--- OUTSIDE RECORDS SUMMARY | 2024-08-01 18:28 | XMS_ITS | Encounter Summary ---
Author Organization [facility] Address [facility] [place] [address] Care Team Providers Care Stringing Machine Operator Name Role Phone Hoang Castellanos APRN Primary Care Provider [phone] Encounter Details Date Type Department Care Team [...] in a care home (including now)? No 04/14/2023 Sex and Gender Information Value Date Recorded Sex Assigned at Not on file Gender Identity Not on file Sexual Orientation Not on file documented as of this encounter Plan of Treatment Not on file documented as of this encounter Visit Diagnoses Not on filedocumented in this encounter Care Teams Stringing Machine Operator Relationship Specialty Start Date End Date Hoang Castellanos, SCHOOL BUSINESS MANAGER [address] [place] [address] PCP - General Family Medicine 03/12/20 documented as of this encounter
--- OUTSIDE RECORDS SUMMARY | 2024-08-01 18:28 | XMS_ITS | Encounter Summary ---
Author Organization [facility] [place] [address] Care Team Providers Care Heavy Equipment Diesel Mechanic Name Role Phone Hoang Castellanos APRN Primary Care Provider Encounter Details Date Type Department Care Team (Late st Contact Info) Description 12/31/2022 Orders [place] [address] Priya Charles, BIOMECHANICAL ENGINEER [facility] [place] [address] S/P gastric bypass; Disorder of iron metabolism; [...] nonabsorption documented in this encounter Care Teams Heavy Equipment Diesel Mechanic Relationship Specialty Start Date End Date Hoang Castellanos APRN [address] [place] [address] PCP - General Family Medicine 03/12/20 documented as of this encounter
--- OUTSIDE RECORDS SUMMARY | 2024-08-01 18:28 | XMS_ITS | Encounter Summary ---
Author Organization [facility] [place] [address] Care Team Providers Care Accounts Adjustable Clerk Name Role Phone Hoang Castellanos APRN Primary Care Provider [phone] Encounter Details Date Type Department Care Team (Late st Contact Info) Description 06/04/2022 Telephone Primary Care at [facility] [address] [place] [id number] Jeannie Luciano, RN Social History Tobacco Use [...] slept in a prison (including now)? No 03/23/2022 Sex and Gender Information Value Date Recorded Sex Assigned at Not on file Gender Identity Not on file Sexual Orientation Not on file documented as of this encounter Miscellaneous Notes * Telephone Encounter - Jeannie Luciano RN - 06/04/2022 11:16 AM EST Message received from Kasia at [facility] where Jeannie has moved to. They received a sign medication list but Jeannie arrived with 2 medications not on our list. They are Depakote ER 250mg and Prozac 20mg. She asked if Jeannie is supposed to be on both Sertraline and Prozac. Returned call to [facility] and spoke with felicita Farr who asked [...] on filedocumented in this encounter Care Teams Accounts Adjustable Clerk Relationship Specialty Start Date End Date Hoang Castellanos APRN [address] [place] [address] PCP - General Family Medicine 03/12/20 documented as of this encounter
--- OUTSIDE RECORDS SUMMARY | 2024-08-01 18:28 | XMS_ITS | Encounter Summary ---
[place] [address] Care Team Providers Care Director Housekeeping Name Role Phone Hoang Castellanos APRN Primary Care Provider Reason for Referral * Consultation (Routine) - Closed Specialty Diagnoses / Procedures Referred By Vanita t Referred To Contact Hematology and Oncology Diagnoses Macrocytosis Anemia, unspecified type Jolly Davenport APRN [address] [place] [address] [facility] [address] [place] [address] Referral ID Status Reason Start Date Expiration Date V isits Requested Visits Authorized [id number] Closed Consult, Test & Treat PCP Updated and/or Approved 03/31/2023 03/30/2024 12 12 Encounter Details Date Type Department Care Team (Latest Contact Info) Description 03/31/2023 Transcribe Orders eDH Incoming Referrals [phone] Jolly Davenport APRN [address] [place], [place] [id number] Macrocytosis; Anemia, unspecified type Social History Tobacco [...] type documented in this encounter Care Teams Director Housekeeping Relationship Specialty Start Date End Date Hoang Castellanos, FLORAL MERCHANDISER [address] [place] [address] PCP - General Family Medicine 03/12/20 documented as of this encounter
--- OUTSIDE RECORDS SUMMARY | 2024-08-01 18:28 | XMS_ITS | Data Portability ---
Author Organization [place] [facility] [place] [address] Assessment Encounter Date Assessment Date Assessment LastModified by Organization Details LastModified Time 10/20/2023 10/20/2023 The total time devoted to today's encounter, including both the wnlf-bl-txwb time with the patient and/or family/caregive r and bep-wsgk-lm-fac e time I personally spent is 30 minutes. Follow-up in 6 Months. Call or RTO sooner if needs arise. [facility] Orders: 1. CBCD, iron, ferritin, TIBC, calcium, PTH, CMP, vitamin B12, vitamin D, thiamine, A1C, lamictal level, Due Jul 2024. 2. TSH with R 10/15 3. UA/ MA next 01/15 4. LDCT scan due February 14 Not available 10/20/2023 09:04:27 03/28/2024 03/28/2024 The primary concern is a chronic deformity of the right foot, contributing to abnormal gait mechanics and frequent falls. The patient? s description and the physical findings suggest a long-standing supination deformity, possibly exacerbated by insufficient orthopedic support. The recurrent falls are likely secondary to this deformity, increasing her risk of further injury and adversely impacting her quality of life. Given the patient's history and symptoms, there is a clear indication for specialized orthopedic footwear and possibly further podiatric evaluation to adequately address her foot mechanics and reduce her fall risk. Inadequate orthopedic footwear: - Referral to [facility] for evaluation and supplying custom footwear. Patient is told they may request formal podiatry referral which will certainly place if needed. Frequent falls: - Emphasize the importance of using the wheeled walker consistently to prevent falls. Chronic right foot deformity: - - Discussion initiated regarding the procurement of custom orthopedic footwear with proper arch support and lateral stability to correct the supination and provide stability. [email or web address] Not available 03/28/2024 08:55:19 04/12/2024 04/12/2024 The total time devoted to today's encounter, including both the enui-eg-qtmj time with the patient and/or family/caregive r and mpl-glhx-hs-fac e time I personally spent is 36 minutes. Flu vaccine: provide today Comirnaty: provide today Td: current due 2027 PCV20: 2021. PPSV23 2016. PPSV23 2007. Shingrix: completed RSV: counseled to get at local pharmacy as desires Pap/ HPV: s/p hys Mammogram: Scheduled next week CRC: order colo DEXA: current; see below Follow-up in 6 Months. Call or RTO sooner if needs arise. [facility] Orders: 1. CBCD, iron, ferritin, TIBC, calcium, PTH, CMP, vitamin B12, vitamin D, thiamine, A1C, lipids. Due Jul 2024. 2. Magnesium oxide 400mg take 1 tab PO QHS 3. Salonpas apply to neck in the AM and off in the PM 4. Colonoscopy- refer local 5. Nicoderm 14mcg apply one patch to arm once a day for 6 weeks 6. Nicoderm 7mcg apply one patch to arm once a day for 6 weeks, then stop 7. D/C omeprazole PRN script Not available 04/12/2024 15:49:18 Plan of Treatment Reminders Order Date Submit Date Provider Last Modified By Organization Details Last Modified Time Details Appointments Home Visit 2024 08:10A M DAMARI CHAPMAN Not available Not available Not available Lab urinalysi s, complete 2023 024 [facility] (Registration ), [address] [place] [address] [place], [address], 01/23/2024 11:04:38 microalbu min/creat inine, ratio panel, urine 2023 024 [email or web address] [facility] (Registration ), [address] [place] [address] [place], [address], 01/23/2024 11:04:52 CBC w/ diff 2023 025 [facility] (Registration ), [address] [place] [address] [place], [address], 07/26/2024 08:10:29 iron + TIBC + ferritin, serum 2023 024 [facility] (Registration ), [address] [place] [address] [place], [address], 10/27/2023 14:08:01 CMP, serum or plasma 2023 025 [facility] (Registration ), [address] [place] [address] [place], [address], 07/26/2024 08:15:33 vitamin B12, serum 2023 025 [facility] (Registration ), [address] [place] [address] [place], [address], 07/26/2024 08:20:11 vitamin D, 25-hydrox y, total, serum 2023 025 [facility] (Registration ), [address] [place] [address] [place], [address], 07/26/2024 08:15:34 vitamin B1 (thiamine ), blood 2023 025 [facility] (Registration ), [address] [place] [address] [place], [address], 07/26/2024 08:20:38 HbA1c (hemoglob in A1c), blood 2023 025 [facility] (Registration ), [address] [place] [address] [place], [address], 07/26/2024 08:15:34 PTH (parathyr oid hormone), intact, serum or plasma 2023 025 [email or web address] [facility] (Registration ), [address] [place] [address] [place], [address], 07/26/2024 08:15:34 urinalysi s complete, reflex culture 2023 024 [facility] (Registration ), [address] [place] [address] [place], [address], 10/28/2023 09:06:37 urinalysi s complete, reflex culture 2023 024 [facility] (Registration ), [address] [place] [address] [place], [address], 11/01/2023 08:34:00 urinalysi s complete, reflex culture 2023 024 [facility] (Registration ), [address] [place] [address] [place], [address], 11/03/2023 11:01:11 urinalysi s complete, reflex culture 2023 024 [facility] (Registration ), [address] [place] [address] [place], [address], 11/10/2023 12:55:05 urinalysi s complete, reflex culture 2023 024 [email or web address] [facility] (Registration ), [address] [place] [address] [place], [address], 11/17/2023 09:39:13 urinalysi s complete, reflex culture 2023 024 [email or web address] [facility] (Registration ), [address] [place] [address] [place], [address], 11/24/2023 08:17:11 urinalysi s complete, reflex culture 2023 024 [email or web address] [facility] (Registration ), [address] [place] [address] [place], [address], 12/01/2023 10:25:37 urinalysi s complete, reflex culture 2023 024 [email or web address] [facility] (Registration ), [address] [place] [address] [place], [address], 12/15/2023 08:17:14 urinalysi s complete, reflex culture 2023 024 [email or web address] [facility] ([facility] ), [address] [place] [address] [place], [address], 12/15/2023 09:51:29 urinalysi s complete, reflex culture 2023 024 [email or web address] [facility] ([facility] ), [address] [place] [address] [place], [address], 12/22/2023 08:41:56 urinalysi s complete, reflex culture 2023 024 [email or web address] [facility] (Registration ), [address] [place] [address] [place], [address], 12/29/2023 13:36:34 urinalysi s complete, reflex culture 2023 024 [email or web address] [facility] (Registration ), [address] [place] [address] [place], [address], 01/05/2024 09:42:00 urinalysi s complete, reflex culture 2023 024 [email or web address] [facility] (Registration ), [address] [place] [address] [place], [address], 01/12/2024 12:28:35 urinalysi s complete, reflex culture 2023 024 [email or web address] [facility] (Registration ), [address] [place] [address] [place], [address], 01/19/2024 10:53:44 urinalysi s complete, reflex culture 2023 024 dot [facility] (Registration ), [address] [place] [address] [place], [address], 01/19/2024 10:53:44 TSH, serum, reflex free T4 2023 024 [email or web address] [facility] (Registration ), [address] [place] [address] [place], [address], 11/08/2023 14:16:44 HbA1c (hemoglob in A1c), blood [address] Laboratory (Registration ), [address] [place] [address] [place], [address], 07/26/2024 09:25:27 CBC w/ diff [address] Laboratory (Registration ), [address] [place] [address] [place], [address], 07/26/2024 09:25:27 iron + TIBC + ferritin, serum 2023 025 [facility] (Registration ), [address] [place] [address] [place], [address], 07/26/2024 08:15:34 vitamin B12 + folate, serum or blood 2023 025 [facility] (Registration ), [address] [place] [address] [place], [address], 07/26/2024 08:25:19 vitamin B1 (thiamine ), blood 2023 024 [facility] (Registration ), [address] [place] [address] [place], [address], 04/12/2024 16:55:22 vitamin D, 1,25-dihy droxy, serum [address] Laboratory (Registration ), [address] [place] [address] [place], [address], 07/26/2024 09:25:27 PTH (parathyr oid hormone), intact, serum or plasma [address] Laboratory (Registration ), [address] [place] [address] [place], [address], 07/26/2024 09:25:27 CMP, serum or plasma 2023 025 [facility] (Registration ), [address] [place] [address] [place], [address], 08/01/2024 17:57:51 lipid panel, serum [address] Laboratory (Registration ), [address] [place] [address] [place], [address], 07/26/2024 09:25:27 TSH, serum, reflex free T4 2023 025 [facility] (Registration ), [address] [place] [address] [place], [address], 07/26/2024 08:10:29 Referral None recorded. Procedures colonosco py screening (PROC) 2023 024 [facility], [address] [place] [address] , [address], [place], [address], 04/12/2024 12:30:56 Surgeries None recorded. Imaging LDCT, chest, for lung cancer screening - Due in February 142023 024 [email or web address] [facility] (Radiology), [address] [place] [address] [place], [address], 03/02/2024 08:35:13 Medication Orders Miralax 17 gram/dose oral powder 2023 024 [facility], [address], 10/20/2023 09:04:47 docusate sodium 100 mg capsule 2023 024 [facility], [address] [place] [address], [address], 10/20/2023 10:27:53 senna 8.6 mg tablet 2023 024 [facility], [address] [place] [address], [address], 10/20/2023 10:27:53 omeprazol e 40 mg capsule,d elayed release 2023 024 [facility], [address] [place] [address], [address], 10/20/2023 09:04:48 magnesium oxide 400 mg (241.3 mg magnesium ) tablet 2023 024 [facility], [address] [place] [address], [address], 04/12/2024 15:50:24 divalproe x 125 mg capsule,d elayed release sprinkle 2023 024 [email or web address] [address], [address], 04/12/2024 15:45:15 Salonpas 3.1 %-10 %-6 % topical patch [address], [address], 04/12/2024 08:25:39 Nicoderm CQ 14 mg/24 hr daily transderm al patch 2023 024 [facility], [address] [place] [address], [address], 07/23/2024 16:09:00 Nicoderm CQ 7 mg/24 hr daily transderm al patch 2023 024 [facility], [address] [place] [address], [place], [address], 07/23/2024 15:28:54 cephalexi n 500 mg capsule 2023 024 Not available 07/23/2024 15:27:13 Patient TargetsNo targets recorded. Patient Instructions Encounter Date Encounter Id Patient Instructions Last Modified By Organization Details Last Modified Time 03/28/2024 [id number] - Continue using the wheeled walker at all times to aid in mobility and prevent falls. - Attend all scheduled appointments with the podiatry specialist for further assessment and fitting for custom footwear. - Report any new or worsening symptoms immediately, particularly related to foot pain or additional falls. [email or web address] Not available 03/28/2024 08:51:21 05/21/2024 [id number] Today, it does appear that there was an abscess/boil to the right labia, that has since opened and drained on it's own. It appears to be improving, but we will treat any surrounding soft tissue infection with an oral antibiotic (cephalexin) 4 times a day for 5 days. This was sent electronically to [facility], and I have also provided a paper prescription that can be faxed if necessary. Continue to use warm, moist compresses, keep the area clean and dry, and return for any fevers, worsening pain, redness, or drainage not responding to treatment discussed. [email or web address] Not available 05/21/2024 12:48:49 Reason for Referral None Reported. Results Created Date Observation Date Name Description Value Unit Range Abnormal Flag Note LastModifiedBy Organization Detail LastModifiedTime 10/27/1910/27/2023 TSH (W/RE F FT4) TSH (w/ref FT4) 2.01 uIU/m L 0.36-3 .74 normal Not Available [facility] [address] [place], [address] 10/28/2023 10:23:48 01/01/20 24 01/01/2024 URINA LYSIS color Yellow yellow Not Available [facility] [address] [place], [address] 01/01/2024 12:01:17 01/01/20 24 01/01/2024 URINA LYSIS clarity Clear clear Not Available [facility] [address] [place], [address] 01/01/2024 12:01:17 01/01/20 24 01/01/2024 URINA LYSIS specific gravity 1.020 1.005- 1.025 normal Not Available [address] [place], [address] 01/01/2024 12:01:01/01/20 24 01/01/2024 URINA LYSIS pH 7.0 5-8 normal Not Available [facility] [address] [place], [address] 01/01/2024 12:01:17 01/01/20 24 01/01/2024 URINA LYSIS leukocyte esterase Small negati ve abnormal Not Available [address] [place], [address] 01/01/2024 12:01:17 01/01/20 24 01/01/2024 URINA LYSIS nitrite Negati ve negati ve Not Available [address] [place], [address] 01/01/2024 12:01:17 01/01/20 24 01/01/2024 URINA LYSIS protein Negati ve mg/dL neg-tr noa Not Available [address] [place], [address] 01/01/2024 12:01:17 01/01/20 24 01/01/2024 URINA LYSIS glucose Negati ve mg/dL negati ve Not Available [address] [place], [address] 01/01/2024 12:01:17 01/01/20 24 01/01/2024 URINA LYSIS ketones Negati ve mg/dL negati ve Not Available [address] [place], [address] 01/01/2024 12:01:17 01/01/20 24 01/01/2024 URINA LYSIS urobilinogen 0.2 mg/dL up to 0.2 Not Available [address] [place], [address] 01/01/2024 12:01:17 01/01/20 24 01/01/2024 URINA LYSIS bilirubin Negati ve negati ve Not Available [address] [place], [address] 01/01/2024 12:01:17 01/01/20 24 01/01/2024 URINA LYSIS blood Negati ve negati ve Not Available [address] [place], [address] 01/01/2024 12:01:17 01/01/20 24 01/01/2024 MICRO SCOPI C FINDI NGS WBC 10-20 hpf 0-5 abnormal Not Available [address] [place], [address] 01/01/2024 12:01:19 01/01/20 24 01/01/2024 MICRO SCOPI C FINDI NGS RBC Negati ve hpf 0-2 Not Available [address] [place], [address] 01/01/2024 12:01:19 01/01/20 24 01/01/2024 MICRO SCOPI C FINDI NGS epithelial cells Few hpf negati ve Not Available [address] [place], [address] 01/01/2024 12:01:19 01/01/20 24 01/01/2024 MICRO SCOPI C FINDI NGS bacteria Rare hpf negati ve Not Available [address] [place], [address] 01/01/2024 12:01:19 01/01/20 24 01/01/2024 MICRO SCOPI C FINDI NGS crystals Negati ve hpf negati ve Not Available [address] [place], [address] 01/01/2024 12:01:19 01/01/20 24 01/01/2024 MICRO SCOPI C FINDI NGS mucus Negati ve negati ve Not Available [address] [place], [address] 01/01/2024 12:01:19 01/01/20 24 01/01/2024 MICRO SCOPI C FINDI NGS casts Negati ve lpf negati ve Not Available [address] [place], [address] 01/01/2024 12:01:19 01/01/20 24 01/01/2024 MICRO SCOPI C FINDI NGS C S indicated? Yes Not Available [address] [place], [address] 01/01/2024 12:01:19 01/01/20 24 01/01/2024 MICRO ALBUM IN microalbumin 8.6 mg/L 1.30-2 0.0 normal Not Available [address] [place], [address] 01/01/2024 13:04:19 01/01/20 24 01/01/2024 MICRO ALBUM IN creatinine urine 103.44 mg/dL Not Available [address] [place], [address] 01/01/2024 13:04:19 01/01/20 24 01/01/2024 MICRO ALBUM IN microalb ug/mg crea 8.3 ug/mg _cr Carolyn l: <30 ug/mg Crea Micro album inuri a: 30-30 0 ug/mg Crea Clini tarik album inuri a: >300 ug/mg Crea Not Available [address] [place], [address] 01/01/2024 13:04:19 01/01/20 24 01/02/2024 URINE CULTU RE urine culture Urine Cultu re APPEA RAH Mixed Gram Posit darius Boris APPEA RAH Gram Negat darius Richar COLON Y COUNT Not Available [address] [place], [address] 01/02/2024 07:50:07 01/01/20 24 01/02/2024 URINE CULTU RE urine culture colon ies/m L <10,0 00 COLON Y COUNT <10,0 00 Day 1 Resul t ISOLA MARIAELENA BELOW O:GPF M (ORGA NIS ID: [id number]) - GRAM POSIT DARIUS BORIS ,MIXE D Urine Cultu re (ORGA NISM ID: 1.1) - COLON Y COUNT (ORGA NISM ID: 1.1) - <10,0 00 O:GNR (ORGA NISM ID: 1.2) - GRAM NEGAT DARIUS RICHAR Urine Cultu re (ORGA NISM ID: 1.2) - COLON Y COUNT (ORGA NISM ID: 1.2) - <10,0 00 Not Available [address] [place], [address] 01/02/2024 07:50:07 01/01/20 24 01/03/2024 URINE CULTU RE urine culture Urine Cultu re APPEA RAH Mixed Gram Posit darius Boris APPEA RAH Gram Negat darius Richar APPEA RAH Mixed Gram Posit darius Boris APPEA RAH Gram Negat darius Richar COLON Y COUNT Not Available [address] [place], [address] 01/03/2024 08:13:04 01/01/20 24 01/03/2024 URINE CULTU RE urine culture colon ies/m L <10,0 00 COLON Y COUNT <10,0 00 COLON Y COUNT 10,00 0 - 50,00 0 COLON Y COUNT <10,0 00 Day 1 Resul t ISOLA MARIAELENA BELOW Day 2 Resul t ISOLA MARIAELENA BELOW O:GPF M (ORGA NISM ID: 1.1) - GRAM POSIT DARIUS BORIS ,MIXE D Urine Cultu re (ORGA NISM ID: 1.1) - COLON Y COUNT (ORGA NISM ID: 1.1) - 10,00 0 - 50,00 0 O:GNR (ORGA NISM ID: 1.2) - GRAM NEGAT DARIUS RICHAR Urine Cultu re (ORGA NISM ID: 1.2) - COLON Y COUNT (ORGA NISM ID: 1.2) - <10,0 00 Not Available [address] [place], [address] 01/03/2024 08:13:04 12/30/19 24 12/30/2023 XR, knee, 3 view No observ ation record ed. [email or web address] Not Available 2023 11:33:25 12/30/19 24 12/30/2023 XR, tibia + fibul a, 2 view Patien t Name: Silvia De La Cruz Unit #: [id number] Loc: DOROTEO Mendez [facility] er: Delfina Mojica Accoun t #: [id number] Status : REG CLI Primar [...] latera l views were obtain ed. COMPAR DAYAMI: CR XR TIB/FI B RT from 2022 CR XR KNEE RT 3V AP,LAT ,MAYRA from 2023 FINDIN GS: BONES: No acute fractu re is presen t. There is an intram edulla ry richar again seen in the tibia. Old healed tibial and fibula r fractu res are noted. No bony destru ctive lesion is seen. The knee is well mainta ined. The articu lar surfac es are unrema rkable . There is a small joint effusi on. There is a small enthes ophyte at the superi or patell a. SOFT TISSUE : Normal . IMPRES JERSON: No acute fractu re or disloc ation in the right knee, tibia or fibula . DATA REPOSI TORY: RADIAT ION DOSE DELIVE RED: Jakub [email or web address] By: Delfina Mojica CC: ------ ------ ------ [...] at the addres s above. Thank- you. [facility] (Radiology) [address], [place], [address], 01/13/2024 11:19:10 12/30/19 24 12/30/2023 XR, knee Patien t Name: Silvia De La Cruz Unit #: [id number] Loc: DI Orderi ng Provid er: Delfina Mojica Accoun t #: [id number] Status : REG CLI Primar [...] latera l views were obtain ed. COMPAR DAYAMI: CR XR TIB/FI B RT from 2022 CR XR KNEE RT 3V AP,LAT ,MAYRA from 2023 FINDIN GS: BONES: No acute fractu re is presen t. There is an intram edulla ry richar again seen in the tibia. Old healed tibial and fibula r fractu res are noted. No bony destru ctive lesion is seen. The knee is well mainta ined. The articu lar surfac es are unrema rkable . There is a small joint effusi on. There is a small enthes ophyte at the superi or patell a. SOFT TISSUE : Normal . IMPRES JERSON: No acute fractu re or disloc ation in the right knee, tibia or fibula . DATA REPOSI TORY: RADIAT ION DOSE DELIVE RED: Ordere d By: Delfina Mojica CC: ------ ------ ------ ------ ------ ------ ------ ------ ------ ------ ------ ------ - Dictat ed By: Anthony Rosas M.D. [id number] Transc ribed By: Anthony Rosas 1545 This [...] at the addres s above. Thank- you. [email or web address] [facility] (Radiology) [address] [place] [address] [place], [address], 01/13/2024 11:19:43 12/30/19 24 12/30/2023 XR, knee, 3 view No observ ation record ed. [email or web address] [facility] (Radiology) [address] [place] [address] [place], [address], 01/02/2024 11:33:10 12/30/19 24 12/30/2023 XR, knee Patien t Name: Lauren tovarSilvia Lawson Unit #: [id number] Loc: DI Orderi ng Provid er: Delfina Mojica Accoun t #: [id number] Status : REG CLI Primar [...] PA tunnel views were obtain ed. COMPAR DAYAMI: No priors for compar dayami. FINDIN GS: BONES: No acute fractu re is presen t. No bony destru ctive lesion is seen. Enthes ophyte s are seen at the anteri or patell a. JOINTS : The knee is normal ly aligne d. No joint effusi on is seen. No loose body. SOFT TISSUE : Normal . IMPRES JERSON: No acute fractu re or disloc ation. [...] error, please notify us immedi ately at [phone] and return the origin al report to us at the addres s above. Thank- you. [facility] (Radiology) [address] [place] [address] [place], [address], 01/13/2024 11:19:58 01/02/20 24 12/30/2023 x-ray imagi ng repor t Patiliz t Name: Silvia De La Cruz Unit #: [id number] Loc: DI Vanessa ng Provid er: Delfina Mojica Accestefania t #: [id number] Status : REG CLI Primar [...] latera l views were obtain ed. COMPAR DAYAMI: CR XR TIB/FI B RT from 2022 CR XR KNEE RT 3V AP,LAT ,MAYRA from 2023 FINDIN GS: BONES: No acute fractu re is presen t. There is an intram edulla ry richar again seen in the tibia. Old healed tibial and fibula r fractu res are noted. No bony destru ctive lesion is seen. The knee is well mainta ined. The articu lar surfac es are unrema rkable . There is a small joint effusi on. There is a small enthes ophyte at the superi or patell a. SOFT TISSUE : Normal . IMPRES JERSON: No acute fractu re or disloc ation in the right knee, tibia or fibula . DATA REPOSI TORY: RADIAT ION DOSE DELIVE RED: Jakub d By: Delfina Mojica CC: ------ ------ ------ ------ ------ ------ ------ ------ ------ ------ ------ ------ - Dictat ed By: Anthony Rosas M.D. 1545 1545 Transc ribed By: Ralph Anthony 1545 This is privil eged, confid ential [...] at the addres s above. Thank- you. [facility] [address] [place], [address] 01/02/2024 09:08:56 01/02/20 24 12/30/2023 x-ray imagi ng repor t Patiliz t Name: Silvia De La Cruz Unit #: [id number] Loc: DI Orderi ng Provid er: Delfina Mojica Accoun t #: [id number] 7 Status : REG CLI Primar [...] PA tunnel views were obtain ed. COMPAR DAYAMI: No priors for compar dayami. FINDIN GS: BONES: No acute fractu re is presen t. No bony destru ctive lesion is seen. Enthes ophyte s are seen at the anteri or patell a. JOINTS : The knee is normal ly aligne d. No joint effusi on is seen. No loose body. SOFT TISSUE : Normal . IMPRES JERSON: No acute fractu re or disloc ation. DATA REPOSI TORY: RADIAT ION DOSE DELIVE RED: Ordere d By: Delfina Mojica CC: ------ ------ ------ ------ ------ ------ ------ ------ ------ ------ ------ ------ - Dictat ed By: Anthony Rosas M.D. 1602 160 Transc ribed By: Anthony Rosas 1602 This is privil eged, confid ential inform ation intend ed only for the provid er named. Any use or distri bution by any person other than this provid er is strict ly prohib ited. If you receiv e this report in error, please notify us immedi ately at [phone] and return the origin al report to us at the addres s above. Thank- you. [facility] [address] [facility] [place], [address] 01/02/2024 09:08:57 01/02/20 24 12/30/2023 x-ray imagi ng repor t Patiliz t Name: Silvia De La Cruz Unit #: [id number] Loc: DI Orderi ng Provid er: Delfina Mojica Accoun t #: [id number] Status : REG CLI Primar [...] latera l views were obtain ed. COMPAR DAYAMI: CR XR TIB/FI B RT from 2022 CR XR KNEE RT 3V AP,LAT ,MAYRA from 2023 FINDIN GS: BONES: No acute fractu re is presen t. There is an intram edulla ry richar again seen in the tibia. Old healed tibial and fibula r fractu res are noted. No bony destru ctive lesion is seen. The knee is well mainta ined. The articu lar surfac es are unrema rkable . There is a small joint effusi on. There is a small enthes ophyte at the superi or patell a. SOFT TISSUE : Normal . IMPRES JERSON: No acute fractu re or disloc ation [...] at the addres s above. Thank- you. [facility] [address], [place], [address] 01/02/2024 09:08:57 02/22/20 24 02/22/2024 LDCT, chest , for lung cance r scree margarita Ming t Name: Lauren guySilvia mims Renny Unit #: [id number] Loc: DI Orderi ng Provid er: Delfina Mojica Accoun t #: [id number] Status : REG CLI Primar y Care Provid er: Delfina Mojica Date of Exam: Sex: F : 1959 Age: 63 Exam(s ) a CT:CT chest lung cancer screen Exam(s ) CT CHEST LUNG CANCER SCREEN EXAM: CT CHEST LUNG CANCER SCREEN CLINIC AL HISTOR Y: KHUSHI NE DEPEND ENCE F17.21 0 SCREEN ING LUNG CANCER TECHNI QUE: Imagin g Protoc ol: Axial comput ed tomogr aphy images with villarreal l and sagitt al reform atted images were create d and review ed COMPAR DAYAMI: CT CT CHEST LUNG CANCER SCREEN from [address] CHEST WO from 2022 FINDIN GS: Trache obronc hial tree: Patent where visual ized. No bronch iectas is. Pulmon mathieu parenc hyma: No consol idatio n or domina nt measur able mass. No jorge a ectura l distor tion. There is a calcif ied granul kishan in the left lower lobe. Lung Nodule s: There is a stable 4 mm nodule in the right lower lobe periph erally (serie s 12, image 406). Medias tinum and Ruth: No domina nt adenop athy or fluid collec tion. The esopha rolando is unrema rkable . Thyroi d gland: Unrema rkable . Lymph nodes: Unrema rkable . Pleura : No effusi on or pneumo thorax . Heart: The heart is not dilate d. Villarreal ry artery calcif icatio ns are presen t. No perica rdial effusi on. Aorta: Thorac ic aorta non-di lated. Athero sclero tic calcif icatio n is presen t. Upper abdome n: Unrema rkable . Soft Tissue s: Unrema rkable . Bones: Within normal limits . IMPRES JERSON: Stable 4 mm right lower lobe pulmon mathieu nodule . No new pulmon mathieu nodule s. Lung RADS Cat 2 - Benign Appear ance / Behavi or: Nodule s with a very low likeli flowers of becomi ng a clinic ally active cancer due to size or lack of growth Lung-R ADS 1.0 CATEGO CATRACHITA: Catego ry 0 - Prior chest CT exam(s ) being locate d for compar dayami. Catego ry 1 - Annual screen ing in 12 months . No nodule s or defini tely benign nodule s. Catego ry 2 - Annual screen ing in 12 months . Benign appear ance. Nodule s with low likeli flowers of becomi ng active cancer . Catego ry 3 - 6-shira h follow -up. Probab ly benign . Short- term follow -up sugges leela. Nodule s with low likeli flowers of becomi ng active cancer . Catego ry 4A - 3-shira h follow -up and CT/PET if >8 mm in size. Suspic ious findin g. Findin gs which requir e additi onal testin g. Catego ry 4B - Findin gs which requir e additi onal testin g and tissue sampli ng. Suspic ious findin g. Catego ry 4X - Catego ry 3 or 4 nodule s with additi onal featur es or imagin g findin gs that increa ses the suspic ion of malign kacie. Modifi er S- Potent [facility] ally signif icant findin g. (Non lung cancer ) RADIAT ION DOSE DELIVE RED: Total DLP Total DLP DATA REPOSI TORY: All CT scans at this facili ty are submit leela to the Nation al Radiol ogy Data Regist ry (NRDR) Dose Index Regist ry (DIR) with the Americ cordell Flores e of Radiol ogy (ACR). RADIAT ION OPTIMI ZATION : [facility] use at least one of these dose optimi zation techni ques: automa leela exposu re contro l; mA and/or kV adjust ment per patien t size (inclu myles target ed exams where dose is matche d to clinic al indica tion); or iterat darius recons tructi on. Orderi ng provid er: Delfina Mojica CC: ------ ------ ------ ------ ------ ------ ------ ------ ------ ------ ------ --- Dictat ed By: Anthony Rosas M.D. [id number] Transc ribed By: Anthony Rosas 1413 This is privil eged, confid ential inform ation intend ed only for the provid er named. Any use or distri bution by any person other than this provid er is strict ly prohib ited. If you receiv e this report in error, please notify us immaranzai soniya at and return the origin al report to us at the addres s above. Thank- you. This report utiliz es the CT Lung Screen ing Report ing and Data System (ACR Lung-R ADS) as below: Assess ment Catego catrachita Manage ment 0 Incomp lete Additi onal lung cancer screen ing CT images needed and/or compar dayami to prior chest CT exam/s needed 1 Negati ve Contin ue annual screen ing with LDCT in 12 months 2 Benign Appear ance or Behavi or Contin ue annual screen ing with LDCT in 12 months 3 Probab ly Benign 6 month LDCT 4A Suspic ious 3 month LDCT; PET CT may be used when there is a >8mm solid compon ent 4B Suspic ious Chest CT with or withou t contra st, PET/CT and/or tissue sampli ng Modifi ers C Prior Lung Cancer Prior diagno sis of lung cancer , return to LDCT screen ing S Signif icant- other Signif icant or potent ially clinic ally signif icant findin gs- non-agustin ng cancer [email or web address] [facility] [address] [place], [address] 05/01/2024 09:38:28 04/09/20 24 09/16/2022 imagi ng/di agnos tic resul t No observ ation record ed. Not Available 04/09 01:17:04 04/09/20 24 09/17/2022 imagi ng/di agnos tic resul t No observ ation record ed. Not Available 04/09 01:18:26 04/09/20 24 09/17/2022 imagi ng/di agnos tic resul t No observ ation record ed. Not Available 04/09 01:18:27 04/09/20 24 09/17/2022 imagi ng/di agnos tic resul t No observ ation record ed. Not Available 04/09 01:18:28 04/09/20 24 09/17/2022 imagi ng/di agnos tic resul t No observ ation record ed. Not Available 04/09 01:18:29 04/09/20 24 08/20/2022 imagi ng/di agnos tic resul t No observ ation record ed. Not Available 04/09 01:18:31 04/09/20 24 09/16/2022 imagi ng/di agnos tic resul t No observ ation record ed. Not Available 04/09 01:18:36 04/09/20 24 09/18/2022 imagi ng/di agnos tic resul t No observ ation record ed. Not Available 04/09 01:18:37 04/09/20 24 02/15/2023 imagi ng/di agnos tic resul t No observ ation record ed. Not Available 04/09 01:18:38 04/09/20 24 01/13/2023 bone densi ty No observ ation record ed. Not Available 04/09 01:18:39 04/09/20 24 01/28/2023 MAMMO , scree margarita No observ ation record ed. Not Available 04/09 01:18:42 04/09/20 24 02/20/2019 XR, lumba r spine No observ ation record ed. Not Available 04/09 01:18:46 04/09/20 24 09/16/2022 imagi ng/di agnos tic resul t No observ ation record ed. Not Available 04/09 01:19:01 04/09/20 24 09/16/2022 imagi ng/di agnos tic resul t No observ ation record ed. Not Available 04/09 01:19:02 04/09/20 24 09/17/2022 imagi ng/di agnos tic resul t No observ ation record ed. Not Available 04/09 01:19:03 04/09/20 24 09/17/2022 imagi ng/di agnos tic resul t No observ ation record ed. Not Available 04/09 01:19:04 04/09/20 24 09/17/2022 imagi ng/di agnos tic resul t No observ ation record ed. Not Available 04/09 01:19:05 04/09/20 24 09/18/2022 imagi ng/di agnos tic resul t No observ ation record ed. Not Available 04/09 01:19:06 04/09/20 24 09/18/2022 imagi ng/di agnos tic resul t No observ ation record ed. Not Available 04/09 01:19:07 04/09/20 24 09/18/2022 imagi ng/di agnos tic resul t No observ ation record ed. Not Available 04/09 01:19:08 04/09/20 24 10/11/2022 imagi ng/di agnos tic resul t No observ ation record ed. Not Available 04/09 01:19:08 04/09/20 24 10/11/2022 imagi ng/di agnos tic resul t No observ ation record ed. Not Available 04/09 01:19:09 04/09/20 24 11/08/2022 imagi ng/di agnos tic resul t No observ ation record ed. Not Available 04/09 01:19:10 04/09/20 24 11/08/2022 imagi ng/di agnos tic resul t No observ ation record ed. Not Available 04/09 01:19:11 04/09/20 24 12/06/2022 imagi ng/di agnos tic resul t No observ ation record ed. Not Available 04/09 01:19:12 04/09/20 24 12/06/2022 imagi ng/di agnos tic resul t No observ ation record ed. Not Available 04/09 01:19:13 04/09/20 24 01/31/2023 imagi ng/di agnos tic resul t No observ ation record ed. Not Available 04/09 01:19:14 04/09/20 24 01/31/2023 imagi ng/di agnos tic resul t No observ ation record ed. Not Available 04/09 01:19:15 04/09/20 24 01/31/2023 imagi ng/di agnos tic resul t No observ ation record ed. Not Available 04/09 01:19:16 04/16/2004/16/2024 MAMMO , scree margarita, bilat eral Patien t Name: Silvia De La Cruz Unit #: [id number] Loc: DI Orderi ng Provid er: Delfina Mojica Accoun t #: [id number] Status : REG CLI Primar y Care Provid er: Delfina Mojica Date of Exam: Sex: F Admiss ion Date: : 1959 Age: 63 Exam(s ) MG MAMMO SCREEN ING EXAM: MG MAMMO SCREEN ING CLINIC AL HISTOR Y: SCREEN ING,Z1 2.31 TECHNI QUE: Bilate ral full field digita l CC and MLO mammog raphic images were obtain ed with 3D tomosy nthesi s and utiliz ing comput er aided detect ion (CAD). COMPAR DAYAMI: Availa ble for compar dayami. FINDIN GS: Masses /Archi tectur al Distor tion: There is new 4 mm nodula r densit y the inferi or aspect of the right breast on the MLO view. There are no areas of jorge a ectura l distor tion. The nodule s in the upper outer quadra nt of the right breast are stable . Microc alcifi cation s: No suspic ious pleomo rphic- type are seen. Skin Thicke margarita/N ipple Retrac tion: None. IMPRES JERSON: 1. New 4 mm nodule in the inferi or aspect of the right breast on the MLO view. 2. Spot compre ssion views reques leela for furthe r evalua tion. Limite d right breast ultras ound may be indica leela at that time. BI-RAD S Catego ry 0 - Incomp lete: Need additi onal imagin g evalua tion Breast Densit y - Catego ry B - Scatte red areas of fibrog landul ar densit y Breast densit y catego ry C or D implie s that the patien t has dense breast tissue . Dense breast tissue is very common and is not abnorm al but dense breast tissue can make it harder to find cancer on a mammog nadir. Also, dense breast tissue may increa se their breast cancer risk. This inform ation about the result of the mammog nadir report was provid ed to the patien t to raise their awaren ess. Use this report when you speak with the patien t about their risks for breast cancer , which includ es their family histor y. At that time, you may recomm end for more screen ing tests (Ultra sound or MRI) as they might be useful based on their risk. A negati ve radiog raphic report should not delay biopsy if a domina nt or clinic ally suspic ious mass is presen t. Up to ten percen t of cancer s are not identi fied on mammog cristin. A negati ve report may reinfo rce clinic al impres jerson. Adenos is and dense breast s may obscur e an underl agata neopla sm. False positi ve report s averag e 6 to 10%. Patien t will receiv e a letter notify ing them of these result s. Ordere d By: Delfina Mojica CC: ------ ------ ------ ------ ------ ------ ------ ------ ------ ------ ------ ------ - Dictat ed By: Anthony Rosas M.D. 1306 1306 Transc ribed By: Anthony Rosas 1306 This is privil eged, confid ential inform ation intend ed only for the provid er named. Any use or distri bution by any person other than this provid er is strict ly prohib ited. If you receiv e this report in error, please notify us immjmaes byrnes at and return the origin al report to us at the addres s above. Thank- you. [email or web address] [facility] (Radiology) [address], [place], [address], 04/17/2024 11:07:14 04/18/20 24 04/18/2024 MAMMO , lurdes avila, yomaira dimas Name: Silvia De La Cruz Unit #: [id number] Loc: DI Orderi ng Provid er: Delfina Mojica Accoun t #: [id number] Status : REG CLI Primar y Care Provid er: Delfina Mojica Date of Exam: Sex: F Admiss ion Date: : 1959 Age: 63 Exam(s ) MG MAMMO SCREEN CALL BACK UNI US BREAST RT LIMITE D EXAM: MG MAMMO SCREEN CALL BACK UNI and U/S breast RT limite d CLINIC AL HISTOR Y: F/U MAMMO, NEW 4 MM RT NODULE ,R92.8 . TECHNI QUE: Cranio caudal and mediol ateral obliqu e Full Field Digita l Mammog cristin views of the right breast with Comput er Aided Diagno sis follow ed by Lavonne coleman and right breast ultras ound. COMPAR DAYAMI: Compar dayami is made with prior examin ations . FINDIN GS: Mammog cristin/ Tomosghulam bhat s: Masses /Archi tectur al Distor tion: There is again seen an ill-de fined nodule at the inferi or aspect of the right breast on the additi onal MLO views. No jorge a ectura l distor tion is seen. Microc alcifi ctions : No suspic ious pleomo rphic- type are seen. Skin Thicke margarita/N ipple Retrac tion: None. Limite d right breast US: Echote xture: Normal appear ance of the glandu lar tissue . Shadow ing: No suspic ious foci. Cyst: At the 4 o'cloc k positi on of the right breast 5 cm from the nipple there is a subcut aneous well-c ircums cribed ovoid radial ly orient ed 0.6 x 0.2 cm lesion most sugges tive of a sebace ous cyst. This would appear to corres pond to the mammog raphic abnorm ality. A simila r subcut aneous lesion seen at 9 o'cloc k 12 cm from the nipple . It measur es 9 mm. This corres ponds to the nodule seen in the outer right breast on the right CC view. This is unchan ged. Solid lesion s: None seen. Ductal dilati on: None. IMPRES JERSON: 1. No eviden ce of malign kacie is noted. 2. Unless there is more urgent need, follow -up screen ing mammog cristin is recomm ended, as per [place] [employer] y guidel isra. 3. The findin gs were discus sed with the patien t on the date of the examin ation. BI-RAD S Catego ry 2 - Benign Findin gs Breast Densit y - Catego ry B - Scatte red areas of fibrog landul ar densit y Breast densit y Catego ry C or D implie s that the patien t has dense breast tissue . Dense breast tissue can make it harder to find cancer on a mammog nadir. Dense breast tissue is also associ ated with an increa sed risk of breast cancer . This inform ation about the result of the mammog nadir report was provid ed to the patien t to raise their awaren ess. Use this report when you speak with the patien t about their risks for breast cancer , which includ es their family histor y. At that time, you may recomm end additi onal screen ing tests (Ultra sound or MRI) as these tests may add signif icant inform ation. A negati ve radiog raphic report should not delay biopsy if a domina nt or clinic ally suspic ious mass is presen t. Up to ten percen t of cancer s are not identi fied on mammog cristin. A negati ve report may reinfo rce clinic al impres jerson. Adenos is and dense breast s may obscur e an underl agata neopla sm. False positi ve report s averag e 6 to 10%. Ming dimas will receiv e a letter notify ing them of these result s. Ordere d By: Delfina Mojica CC: ------ ------ ------ ------ ------ ------ ------ ------ ------ ------ ------ ------ - Dictat ed By: Anthony Rosas M.D. 1546 154 Transc ribed By: Anthony Rosas 154 [...] at the addres s above. Thank- you. [email or web address] [facility] (Radiology) [address] [place] [address] Dr, [place], [address], 04/24/2024 15:55:36 04/18/20 24 04/18/2024 US, shaista dimas, kima teral , limit ed Ming dimas Name: Silvia De La Cruz Unit #: [id number] Loc: DI Orderi ng Provid er: Delfina Mojica Accoun t #: [id number] Status : REG CLI Primar y Care Provid er: Delfina Mojica Date of Exam: Sex: F Admiss ion Date: : 1959 Age: 63 Exam(s ) MG MAMMO SCREEN CALL BACK UNI US BREAST RT LIMITE D EXAM: MG MAMMO SCREEN CALL BACK UNI and U/S breast RT limite d CLINIC AL HISTOR Y: F/U MAMMO, NEW 4 MM RT NODULE ,R92.8 . TECHNI QUE: Cranio caudal and mediol ateral obliqu e Full Field Digita l Mammog cristin views of the right breast with Comput er Aided Diagno sis follow ed by Tomosghulam bhat s and right breast ultras ound. COMPAR DAYAMI: Compar dayami is made with prior examin ations . FINDIN GS: Mammog cristin/ Tomosy home s: Masses /Archi tectur al Distor tion: There is again seen an ill-de fined nodule at the inferi or aspect of the right breast on the additi onal MLO views. No jorge a ectura l distor tion is seen. Microc alcifi ctions : No suspic ious pleomo rphic- type are seen. Skin Thicke margarita/N ipple Retrac tion: None. Limite d right breast US: Echote xture: Normal appear ance of the glandu lar tissue . Shadow ing: No suspic ious foci. Cyst: At the 4 o'cloc k positi on of the right breast 5 cm from the nipple there is a subcut aneous well-c ircums cribed ovoid radial ly orient ed 0.6 x 0.2 cm lesion most sugges tive of a sebace ous cyst. This would appear to corres pond to the mammog raphic abnorm ality. A simila r subcut aneous lesion seen at 9 o'cloc k 12 cm from the nipple . It measur es 9 mm. This corres ponds to the nodule seen in the outer right breast on the right CC view. This is unchan ged. Solid lesion s: None seen. Ductal dilati on: None. IMPRES JERSON: 1. No eviden ce of malign kacie is noted. 2. Unless there is more urgent need, follow -up screen ing mammog cristin is recomm ended, as per [place] an [employer] Societ y guidel isra. 3. The findin gs were discus sed with the patien t on the date of the examin ation. BI-RAD S Catego ry 2 - Benign Findin gs Breast Densit y - Catego ry B - Scatte red areas of fibrog landul ar densit y Breast densit y Catego ry C or D implie s that the patien t has dense breast tissue . Dense breast tissue can make it harder to find cancer on a mammog nadir. Dense breast tissue is also associ ated with an increa sed risk of breast cancer . This inform ation about the result of the mammog nadir report was provid ed to the patiliz t to raise their awaren ess. Use this report when you speak with the patien t about their risks for breast cancer , which includ es their family histor y. At that time, you may recomm end additi onal screen ing tests (Ultra sound or MRI) as these tests may add signif icant inform ation. A negati ve radiog raphic report should not delay biopsy if a domina nt or clinic ally suspic ious mass is presen t. Up to ten percen t of cancer s are not identi fied on mammog cristin. A negati ve report may reinfo rce clinic al impres jerson. Adenos is and dense breast s may obscur e an underl agata neopla sm. False positi ve report s averag e 6 to 10%. Patien t will receiv e a letter notify ing them of these result s. Ordere d By: Delfina Mojica CC: ------ ------ ------ ------ ------ ------ ------ ------ ------ ------ ------ ------ - Dictat ed By: Anthony oRsas M.D. 1546 1546 Transc ribed By: Anthony Rosas 1546 This is privil eged, confid ential inform ation intend ed only for the provid er named. Any use or distri bution by any person other than this provid er is strict ly prohib ited. If you receiv e this report in error, please notify us immedi ately at [phone] and return the origin al report to us at the addres s above. Thank- you. [email or web address] [place] [id number], [place], [address] 04/24/2024 15:55:02 Result Notes None recorded. Problems Name Problem SNOMED Code Status Onset Date Resolution Date Notes Provider Name and Address Organization Details Recorded Time Anxiety disorder [id number] Active 2021 Problem Code: F41.9; Problem Code Type: ICD-10; [address], [place], [address] , [facility] 3 10:18:48 Arthrode sis Active 2021 Problem Code: Z98.1; Problem Code Type: ICD-10; [address], [address] 3 10:18:48 Asthma 801796001 Active 2021 Problem Code: J45.998; Problem Code Type: ICD-10; [address], [address] 3 10:18:48 Atherosc lerosis of coronary artery without angina pectoris [id number] 4103 Active 2021 Problem Code: I25.10; Problem Code Type: ICD-10; [address], [place], [place], [address] [place] [address] 3 10:18:48 [facility] hyperten jerson 79122284 Active 2021 Problem Code: I10; Problem Code Type: ICD-10; [address], [place], [address] [place] [address] 3 10:18:48 Localize d edema 029799441 Active 2021 Problem Code: R60.0; Problem Code Type: ICD-10; [address], [facility] [address] [place] [address] 3 10:18:48 Bipolar disorder 28319775 Active 2021 Problem Code: F31.9; Problem Code Type: ICD-10; [address], [place] [address] , [facility] 3 10:18:48 Borderli ne personal ity disorder 33131259 Active 2021 Problem Code: F60.3; Problem Code Type: ICD-10; [address], [address] 3 10:18:48 Bulimia nervosa 46472486 Active 2021 Problem Code: F50.2; Problem Code Type: ICD-10; [address], [address] 3 10:18:49 Cataract 320449359 Active 2021 Problem Code: H26.9; Problem Code Type: ICD-10; [address], [address] 3 10:18:48 Spinal stenosis in cervical region 77163900 Active 2021 Problem Code: M48.02; Problem Code Type: ICD-10; [address], [address] 3 10:18:49 Neck pain 37258240 Active 2021 Problem Code: M54.2; Problem Code Type: ICD-10; [address], [address] 3 10:18:49 Chronic obstruct darius pulmonar y disease 13720810 Active 2021 Problem Code: J44.9; Problem Code Type: ICD-10; [address], [place] [address] , [facility] 3 10:18:48 Chronic pain 57027573 Active 2021 Problem Code: G89.29; Problem Code Type: ICD-10; [address], [address] 3 10:18:49 Arthralg ia of the ankle and/or foot 344056942 Active 2021 Problem Code: M25.579; Problem Code Type: ICD-10; [address], [address] 3 10:18:48 Major depressi on, single episode 13179421 Active 2021 Problem Code: F32.9; Problem Code Type: ICD-10; [address], [address] 3 10:18:48 Dizzines s and giddines s 818611611 Active 2021 Problem Code: R42; Problem Code Type: ICD-10; [address], [address] 3 10:18:48 Asthenia 46979459 Active 2021 Problem Code: R53.1; Problem Code Type: ICD-10; [address], [address] 3 10:18:48 Gastroes ophageal reflux disease without esophagi tis 126961335 Active 2021 Problem Code: K21.9; Problem Code Type: ICD-10; [address], [address] 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 Active 2021 Problem Code: E03.9; Problem Code Type: ICD-10; [address], [place] [address] , [facility] 3 10:18:48 Low back pain 115015766 Active 2021 Problem Code: M54.50; Problem Code Type: ICD-10; [address], [address] 3 10:18:48 Obesity 542720319 Active 2021 Problem Code: E66.9; Problem Code Type: ICD-10; [address], [address] 3 10:18:48 Obstruct darius sleep apnea syndrome 16242995 Active 2021 Problem Code: G47.33; Problem Code Type: ICD-10; [address], [address] 3 10:18:49 Osteoart hritis of multiple joints 223894793 Active 2021 Problem Code: M15.9; Problem Code Type: ICD-10; [address], [place] [address] , [facility] 3 10:18:48 Senile osteopor osis 45832196 Active 2021 Problem Code: M81.0; Problem Code Type: ICD-10; [address], [address] 3 10:18:48 Posttrau matic stress disorder 64292090 Active 2021 Problem Code: F43.10; Problem Code Type: ICD-10; [address], [address] 3 10:18:48 Seizure 97538980 Active 2021 Problem Code: R56.9; Problem Code Type: ICD-10; [address], [address] 3 10:18:49 Nicotine dependen ce 52437834 Active 2021 Problem Code: Z87.891; Problem Code Type: ICD-10; [address], [address] 3 10:18:48 History of risk factor for suicide 36858653336 4103 Active 2021 Problem Code: Z91.51; Problem Code Type: ICD-Nany; [address], [address] 3 10:18:48 Vitamin D deficien 26025866 Active 2021 Problem Code: E55.9; Problem Code Type: ICD-10; [address], [place] [address] , [facility] 3 10:18:48 Vitamin B deficien cy 41843972 Active 2021 Problem Code: E53.8; Problem Code Type: ICD-10; [address], [address] 3 10:18:48 History of bariatri c surgical procedur e 963043948 Active 2021 Problem Code: Z98.84; Problem Code Type: ICD-10; [address], [address] 3 10:18:48 Prediabe mariaelena 823159145 Active 2021 Problem Code: R73.03; Problem Code Type: ICD-10; [address], [address] 3 10:18:49 Hemorrho ids 57917168 Active 2021 Problem Code: K64.9; Problem Code Type: ICD-10; [address], [address] 3 10:18:49 Constipa tion 05059692 Active 2021 Problem Code: K59.00; Problem Code Type: ICD-10; [address], [address] 3 10:18:48 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 178174015 Active 2021 Problem Code: H54.3; Problem Code Type: ICD-10; [address], [address] 3 10:18:48 Urinary incontin ence 460140117 Active 2021 Problem Code: R32; Problem Code Type: ICD-10; [address], [place], [place], [address] [place] [address] , [facility] 3 10:18:48 History of malignan t neoplasm of ovary 078568286 Active 2021 Problem Code: Z85.43; Problem Code Type: ICD-10; [address], [place], [place], [address] [place] [address] 3 10:18:48 Screenin g mammogra phy Active 2022 Problem Code: Z12.31; Problem Code Type: ICD-10; [address], [place], [place], [address] [place] [address] , [facility] 3 10:18:48 Solitary nodule of lung 921594312 Active 2022 Problem Code: R91.1; Problem Code Type: ICD-10; [address], [place], [place], [address] [place] [address] , [facility] 3 10:18:48 Anemia 886773376 Active 2022 Problem Code: D64.9; Problem Code Type: ICD-10; [address], [place] [address] , [facility] 3 10:18:48 Disorder of hematopo ietic structur e 699068038 Active 2022 Problem Code: D75.89; Problem Code Type: ICD-10; [address], [place], [place], [address] [place] [address] 3 10:18:48 Pain in lower limb 47805008 Completed 202202/03/2023 Problem Code: M79.606; Problem Code Type: ICD-10; Not Available [facility] 3 05:27:04 Urinary tract infectio us disease 73207228 Completed 202106/18/2022 Problem Code: N39.0; Problem Code Type: ICD-10; Not Available [facility] 3 05:27:05 Tobacco dependen ce caused by cigarett es 00458509641 973584 Completed 202104/20/2023 Problem Code: F17.210; Problem Code Type: ICD-10; [address], [facility] [address] , [facility] 4 04:29:59 History of nutritio nal disorder 580850515 Completed 202109/09/2022 Not Available [facility] 3 05:27:05 Tobacco dependen ce caused by cigarett es 13723065424 533377 Completed 202208/23/2022 Problem Code: F17.210; Problem Code Type: ICD-10; [address], [facility] [address] , [facility] 4 04:29:59 Nicotine dependen ce 97720092 Completed 202208/23/2022 Problem Code: F17.200; Problem Code Type: ICD-10; [address], [facility] [address] , [facility] 3 10:18:48 Edema of lower leg 844136861 Active [address], [facility] [address] , [facility] 3 14:13:38 Restless legs 48765026 Active [address], [facility] [address] , [facility] 3 11:31:07 Active immuniza tion Active 2022 Problem Code: Z23; Problem Code Type: ICD-10; Not Available [facility] 4 05:37:46 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 Procedures Surgical History None recorded. Imaging Results Imaging Date Name Status LastModified by [facility] Details LastModified Time 12/30/2023 XR, knee, 3 view completed [email or web address] Information not available 01/02/2024 11:33:25 12/30/2023 XR, tibia + fibula, 2 view completed [facility] (Radiology) [address] [place] [address] [place], [address], 01/13/2024 11:19:10 12/30/2023 XR, knee completed [email or web address] [facility] (Radiology) [address] [place] [address] [place], [address], 01/13/2024 11:19:43 12/30/2023 XR, knee, 3 view completed [email or web address] [facility] (Radiology) [address] [place] [address] [place], [address], 01/02/2024 11:33:10 12/30/2023 XR, knee completed [email or web address] [facility] (Radiology) [address] [place] [address] [place], [address], 01/13/2024 11:19:58 12/30/2023 x-ray imaging report completed [address] [place], [address] 01/02/2024 09:08:56 12/30/2023 x-ray imaging report completed [address] [place], [address] 01/02/2024 09:08:57 12/30/2023 [facility] imaging report [email or web address] [address] [place], [address] 01/02/2024 09:08:57 02/22/2024 LDCT, chest, for lung cancer screening completed [email or web address] [address] [place], [address] 05/01/2024 09:38:28 09/16/2022 imaging/diagno stic result completed Information not available 04/09/2024 01:17:04 09/17/2022 imaging/diagno stic result completed Information not available 04/09/2024 01:18:26 09/17/2022 imaging/diagno stic result completed Information not available 04/09/2024 01:18:27 09/17/2022 imaging/diagno stic result completed Information not available 04/09/2024 01:18:28 09/17/2022 imaging/diagno stic result completed Information not available 04/09/2024 01:18:29 08/20/2022 imaging/diagno stic result completed Information not available 04/09/2024 01:18:31 09/16/2022 imaging/diagno stic result completed Information not available 04/09/2024 01:18:36 09/18/2022 imaging/diagno stic result completed Information not available 04/09/2024 01:18:37 02/15/2023 imaging/diagno stic result completed Information not available 04/09/2024 01:18:38 01/13/2023 bone density completed Information not available 04/09/2024 01:18:39 01/28/2023 MAMMO, screening completed Information not available 04/09/2024 01:18:42 02/20/2019 XR, lumbar spine completed Information not available 04/09/2024 01:18:46 09/16/2022 imaging/diagno stic result completed Information not available 04/09/2024 01:19:01 09/16/2022 imaging/diagno stic result completed Information not available 04/09/2024 01:19:02 09/17/2022 imaging/diagno stic result completed Information not available 04/09/2024 01:19:03 09/17/2022 imaging/diagno stic result completed Information not available 04/09/2024 01:19:04 09/17/2022 imaging/diagno stic result completed Information not available 04/09/2024 01:19:05 09/18/2022 imaging/diagno stic result completed Information not available 04/09/2024 01:19:06 09/18/2022 imaging/diagno stic result completed Information not available 04/09/2024 01:19:07 09/18/2022 imaging/diagno stic result completed Information not available 04/09/2024 01:19:08 10/11/2022 imaging/diagno stic result completed Information not available 04/09/2024 01:19:08 10/11/2022 imaging/diagno stic result completed Information not available 04/09/2024 01:19:09 11/08/2022 imaging/diagno stic result completed Information not available 04/09/2024 01:19:10 11/08/2022 imaging/diagno stic result completed Information not available 04/09/2024 01:19:11 12/06/2022 imaging/diagno stic result completed Information not available 04/09/2024 01:19:12 12/06/2022 imaging/diagno stic result completed Information not available 04/09/2024 01:19:13 01/31/2023 imaging/diagno stic result completed Information not available 04/09/2024 01:19:14 01/31/2023 imaging/diagno stic result completed Information not available 04/09/2024 01:19:15 01/31/2023 imaging/diagno stic result completed Information not available 04/09/2024 01:19:16 04/16/2024 MAMMO, screening, bilateral completed [email or web address] [facility] (Radiology) [address] [facility] [place], [address], 04/17/2024 11:07:14 04/18/2024 MAMMO, screening, bilateral completed [email or web address] [facility] (Radiology) [address] [facility] [place], [address], 04/24/2024 15:55:36 04/18/2024 US, breast, unilateral, limited completed [email or web address] [facility] [address] [facility] [place], [address] 04/24/2024 15:55:02 Procedure Notes None recorded. Medical Equipment None Reported. Allergies Allergen ID Allergen Name Allergen Category Reaction Reaction Severity Criticality Documentation Date Start Date Code Code System Note Provider Name and Address Organization Details Recorded Time 84685 prednison e medicatio n other moderate Not available 06/03/20232010 8640 RxNorm Aggit ation Aller gyRea ction : 'Aggi tatio n'; Not Available [facility] 16:21:47 77740 morphine sulfate medicatio n dyspnea Not available Not available 06/03/20232015 69817 RxNorm SOB Aller gyRea ction : 'SOB' ; Not Available [facility] 3 16:21:47 61903 Imitrex medicatio n hives Not available Not available 05/21/2024 66148 3 RxNorm Moira Morris MA [facility], [place] - [facility]. 12:19:32 Medications Name Sig Start Date Stop [...] Updated DateTime 4 157.48 cm 34.5 kg/m2 41877.4 7 g 97 [degF] 96 % 96 % 67 /min 15 /min 130 mm[Hg] 67 mm[Hg] DAMARI CHAPMAN APRN [address], [place], [address], [facility] 4 08:44:52 Date Recorded Body height Body mass index (BMI) Body weight Body temperature Oxygen saturation Oxygen saturation in Arterial blood by Pulse oximetry Heart rate Systolic blood pressure Diastolic blood pressure Provider Name and Address Organization Details Last Updated DateTime 4 157.48 cm 31.5 kg/m2 43931.8 9 g 97 [degF] 98 % 98 % 74 /min 124 mm[Hg] 76 mm[Hg] JABIER VILLASEÑOR MA [facility] 4 08:25:41 Date Recorded Body height Body mass index (BMI) Body weight Oxygen saturation Oxygen saturation in Arterial blood by Pulse oximetry Heart rate Respiratory rate Body temperature Systolic blood pressure Diastolic blood pressure Provider Name and Address Organization Details Last Updated DateTime 4 157.48 cm 31.1 kg/m2 89084.7 g 96 % 96 % 46 /min 14 /min 97.3 [degF] 120 mm[Hg] 62 mm[Hg] DAMARI CHAPMAN APRN [address], [place], [address], [facility] 4 07:58:53 Date Recorded Body height Body mass index (BMI) Body weight Body temperature Oxygen saturation Oxygen saturation in Arterial blood by Pulse oximetry Heart rate Respiratory rate Systolic blood pressure Diastolic blood pressure Provider Name and Address Organization Details Last Updated DateTime 4 157.48 cm 29.9 kg/m2 59138.9 6 g 98.3 [degF] 96 % 96 % 61 /min 16 /min 106 mm[Hg] 65 mm[Hg] Moira Morris MA [facility] 12:18:34 Date Recorded Body height Heart rate Respiratory rate Body temperature Oxygen saturation Oxygen saturation in Arterial blood by Pulse oximetry Body mass index (BMI) Body weight Systolic blood pressure Diastolic blood pressure Provider Name and Address Organization Details Last Updated DateTime 4 157.48 cm 60 /min 17 /min 98.2 [degF] 96 % 96 % 28.9 kg/m2 24913.5 9 g 118 mm[Hg] 60 mm[Hg] DAMARI CHAPMAN, SAM [address], [place], [address] , [facility] 15:24:43 Social History Question Answer Notes LastModified by Organizat ion Details LastModified Time Tobacco Smoking Status Former Smoker Moira Morris MA [facility], [facility] 05/21/2024 12:20:36 When Did You Quit Smoking? 1-5yearssin celastcigar ette Quit April 26, 2024 [email or web address] Information not available 05/21/2024 What Was The Date Of Your Most Recent Tobacco Screening? 05/21/2024 Information not available 05/21/2024 What Is Your Current Pack Years? 30ormorepac kyears Information not available 10/20/2023 At What Age Did You Start Smoking Tobacco? 11 Information not available 10/20/2023 How Much Tobacco Do You Smoke? 2 PPW Information not available 10/20/2023 Has Tobacco Cessation Counseling Been Provided? Yes Information not available 10/20/2023 On What Date Was Tobacco Cessation Counseling Provided? 05/21/2024 [email or web address] Information not available 05/21/2024 How Many Years [...] Recorded Time Tdap 8 completed Not Available [facility] 06/03/2023 04:40:27 zoster live 0 completed Not Available [facility] 06/03/2023 04:40:27 zoster live 2 completed Not Available [facility] 06/03/2023 04:40:27 Td(adult) unspecified formulation 7 completed Not Available [facility] 06/03/2023 04:40:27 SARS-COV-2 (COVID-19) vaccine, UNSPECIFIED 1 completed Not Available [facility] 06/03/2023 04:40:27 SARS-COV-2 (COVID-19) vaccine, UNSPECIFIED 1 completed Not Available [facility] 06/03/2023 04:40:27 SARS-COV-2 (COVID-19) vaccine, UNSPECIFIED 2 completed Not Available [facility] 06/03/2023 04:40:28 SARS-COV-2 (COVID-19) vaccine, UNSPECIFIED 1 completed Not Available [facility] 06/03/2023 04:40:28 Pneumococcal conjugate PCV20, polysaccharide [id number] conjugate, adjuvant, PF 2 completed Not Available [facility] 06/03/2023 04:40:28 pneumococcal polysaccharide PPV23 8 completed Not Available [facility] 06/03/2023 04:40:29 pneumococcal polysaccharide PPV23 7 completed Not Available [facility] 06/03/2023 04:40:29 influenza, unspecified formulation 0 completed Not Available [facility] 06/03/2023 04:40:29 influenza, unspecified formulation 2 completed Not Available [facility] 06/03/2023 04:40:30 influenza, unspecified formulation 7 completed Not Available [facility] 06/03/2023 04:40:30 influenza, unspecified formulation 6 completed Not Available [facility] 06/03/2023 04:40:30 influenza, unspecified formulation 1 completed Not Available [facility] 06/03/2023 04:40:30 influenza, unspecified formulation 5 completed Not Available [facility] 06/03/2023 04:40:30 influenza, unspecified formulation 8 completed Not Available [facility] 06/03/2023 04:40:31 COVID-19, mRNA, LNP-S, PF, mike-sucrose, 30 mcg/0.3 mL [address], [address] 04/12/2024 15:44:26 Influenza, split virus, trivalent, PF [address], [address] 04/12/2024 15:44:26 COVID-19, mRNA, LNP-S, PF, mike-sucrose, 30 mcg/0.3 mL [address], [address] 06/30/2023 13:41:28 Influenza, split virus, quadrivalent, PF 3 completed Not Available [facility] 08/05/2023 05:33:03 Past Encounters Encounter ID Performer Location Encounter Start Date Encounter Closed Date Diagnosis/Indication Diagnosis SNOMED-CT Code Diagnosis ICD10 Code Diagnosis Note [id number] DAMARI CHAPMAN [address] [address] 06/30/2023 09:47:30 06/30/2023 15:17:56 Active or passive immunization [id number] Z23 [id number] DAMARI CHAPMAN [address] [address] 07/14/2023 06:52:54 09/08/2023 05:37:42 Urinary incontinence 329536584 R32 Urinary incontinen ce. Encouraged good perianal hygiene. Depends PRN. Constipation 22635999 K5 9.00 K64.9 Constipati on. Hemorrhoid s. Bowel movements about once per week.- Continue colace, senna- Increase miralax to BID Seizure 26038173 R56.9 Seizures. Stable. Continue meds; check level with next routine blood draw; briefly discussed seeing neurology. Obstructiv e sleep apnea syndrome 34556362 G47.33 Obstructiv e sleep apnea, adult. Asymptomat ic. Managed with side sleeping Obesity 405551252 E66.9 Obesity.hx of gastric bypass.Hx of DM, prediabete s.Vitamin B12 deficiency .Vitamin D deficiency .Osteoporo sis. Last DEXA was 2022, declines med mgmt, although meets requiremen ts.Bariatr ic labs every Jul- CBCD, iron, ferritin, TIBC, calcium, PTH, CMP, vitamin B12, vitamin D, thiamine, A1C.Encour aged to FU with bariatric clinic, recommend the MVI they prescribe. Request notes Hypothyroidism 46291264 E03.9 Hypothyroi dism. Stable, continue med. Check TSH next 08/17. Headache 93025924 R51.9 Headache, unspecifie d.Migraine s.- Declines PT- Declines additional medication s- She will continue [place] see [place] [facility]; declines referral to neurology for headaches specific. Gastroesop hageal reflux disease without esophagitis 718629623 K21.9 GERD.Reflu x about once per week- continue med; declines dose increase in pepcid.- Known osteoporos is; discussed her prilosec and her bone health- her specialist at [facility] [place] write order to restart this medication on a daily basis- Encouraged diet mgmt. Chronic pain 09078284 G8 9.29 Chronic pain.Cervi calgia.Spi nal stenosis, cervical.A nkle pain,chron ic, lumbago.We akness.OA. Continue APAP. No IBU products. D/C diclofenac per her desires. Atheroscle rosis of coronary artery without angina pectoris 8538533004 65481 I25.10 Benign essential hypertensi on.Atheros clerosis, coronary, [place] artery.HLD .- Stable, continue meds.- UA/ MA normal when checked 01/14, check yearly, no indication ACEI/ ARB. Dizziness and giddiness 309504866 R42 Dizziness. Rare, monitor for now. Asthma 457194994 J45.90 9 Asthma, chronic.CO PD.Current smoker.Pul monary nodule.- Stable, continue meds.- Low dose lung CT scan next February 14. Smoker for 50 years; 1ppd; 50 pack history.- Encouraged smoking cessation. Bipolar disorder 0436967 4 F31.9 Bipolar disorder.B ulimia.Bor derline personalit y disorder.A nxiety.Dep ression.PT SD.Hx of attempted suicide.- Stable, continue meds through her mental health provider and counseling . Meds psychiatry is prescribin g- vitamin D, B12, depakote, klonopin, lamictal, prazosin, probiotic, prozac, trazodone, vitamin C. To discuss the probiotic through them Edema of lower leg 04693 7004 R60.0 Leg edema, bilateral. Chronic. Trace. Monitor for now. 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 Per hematology in 2022, stable, no indication to evaluate further. Restless legs 49578191 G 25.81 Muscle spasms. Desires stopping magnesium. is aware her symptoms may worsen. Monitor for now. Discussed referral to neurosurge [facility]. [id number] DAMARI CHAPMAN [address] [address] 10/20/2023 07:32:39 10/20/2023 13:47:57 Urinary incontinence 617411699 R32 Urinary incontinen ce. Encouraged good perianal hygiene. Depends PRN. Standing order for UA with reflex. Constipation 48896285 K5 9.00 K64.9 Constipati on.Hemorrh oids.- reduce miralax to 1/2 cap BID. Seizure 29771140 R56.9 Seizures.- Stable. Continue meds; check level with next routine blood draw.- Encouraged neurology eval , she declines Obstructiv e sleep apnea syndrome 53095037 G47.33 Obstructiv e sleep apnea, adult. Asymptomat ic. Managed with side sleeping Obesity 864755808 E66.9 Obesity.hx of gastric bypass.Hx of DM, prediabete s.Vitamin B12 deficiency .Vitamin D deficiency .Osteoporo sis.- Last DEXA was 2022, declines med mgmt, although meets requiremen ts.- Bariatric labs every Jul- CBCD, iron, ferritin, TIBC, calcium, PTH, CMP, vitamin B12, vitamin D, thiamine, A1C.- Encouraged to FU with bariatric clinic, recommend the MVI they prescribe. Hypothyroidism 36970466 E03.9 Hypothyroi dism.- Stable, continue med.- Check TSH next 08/18 Headache 72828044 R51.9 Headache, unspecifie d.Migraine s.- Feels tolerable, monitor for now. Gastroesop hageal reflux disease without esophagitis 609788160 K21.9 GERD.- Worsening. increase prilosec to 40mg daily.- Known osteoporos is; bariatric specialist recommends continuing this medication indefinite ly.- Encouraged diet mgmt. Edema of lower leg 19780 7004 R60.0 Leg edema, bilateral. Chronic. Trace. Monitor for now. Dizziness and giddiness 087635137 R42 Dizziness. Suspect drug to drug interactio ns, medication side effects. Right now not frequent. move slowly with position changes. Monitor for now. Atheroscle rosis of coronary artery without angina pectoris 5127894090 57094 I25.10 Benign essential hypertensi on.Atheros clerosis, coronary, [place] artery.HLD .- Stable, continue meds.- UA/ MA normal when checked 01/14, check yearly, no indication ACEI/ ARB. Asthma 207301958 J45.90 9 Asthma, chronic.CO PD.Current smoker.Pul monary nodule.- Stable, continue meds.- Low dose lung CT scan next February 14. Smoker for 50 years; 1ppd; 50 pack history- Encouraged smoking cessation. Bipolar disorder 5391547 4 F31.9 Bipolar disorder.B ulimia.Bor derline personalit y disorder.A nxiety.Dep ression.PT SD.Hx of attempted suicide.- Stable, continue meds through her mental health provider and counseling .- Meds psychiatry is prescribin g- vitamin D, B12, depakote, klonopin, lamictal, prazosin, probiotic, prozac, trazodone, vitamin C, [place], bone builders Chronic pain 06641075 G8 9.29 Chronic pain.Cervi calgia.Spi nal stenosis, cervical.A nkle pain,chron ic, lumbago.We akness.OA. - Well managed with APAP, supplement s. 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 Unclear etiology. Per hematology in 2022, stable, no indication to evaluate further. Restless legs 81154637 G 25.81 Muscle spasms.- No complaints . Tobacco de pendence caused by cigarettes 4189630582 7861464 F17.337 [id number] BELIA STANLEY MD [address] [address] 03/28/2024 08:08:47 03/28/2024 09:38:16 Supination deformity of foot 733945505 M21.6X9 [id number] DAMARI CHAPMAN APRN [address] [address] 04/12/2024 07:28:34 04/12/2024 12:15:26 Urinary incontinence 239094942 R32 Urinary incontinen ce. Encouraged good perianal hygiene. Depends PRN. Standing order for UA with reflex done last September 2023. Constipation 45429616 K5 9.00 K64.9 Constipati on. Hemorrhoid s. Stable, continue medication regimen. Seizure 47772338 R56.9 Seizures. Without her lamictal, psychiatry stopped this medication . She is on depakote currently, managed through psychiatry . Did discuss with her briefly about seeing neurology, she declines. Monitor for seizures. If desires she would like to see neurology, to let nursing know. Obstructiv e sleep apnea syndrome 76637391 G47.33 Obstructiv e sleep apnea, adult. Asymptomat ic. Managed with side sleeping Obesity 836104973 E66.9 Obesity. hx of gastric bypass. Hx of DM, preDM. Vitamin B12 deficiency , D deficiency . Osteoporos is.- Last DEXA was 2022, declines med mgmt, although meets requiremen ts.- Bariatric labs every Jul- CBCD, iron, ferritin, TIBC, calcium, PTH, CMP, vitamin B12, vitamin D, thiamine, A1C.- Encouraged to FU with bariatric clinic, recommend the MVI they prescribe. Hypothyroidism 82026449 E03.9 Hypothyroi dism. - Stable, continue med. Check TSH next 08/18 Headache 43124861 R51.9 Headache, unspecifie d. Migraines. Slight increase in headaches, attributes to stress. Continue with coping skills of meditation . Gastroesop hageal reflux disease without esophagitis 283284155 K21.9 GERD. Stable, continue medication . Encouraged diet mgmt. Check mag, B12 in July. Edema of lower leg [id number] R60.0 Leg edema, bilateral. Chronic. Trace. Monitor for now. Dizziness and giddiness [id number] R42 Dizziness. Unchanged. Tolerable. Monitor for now. Atheroscle rosis of coronary artery without angina pectoris [id number] 27816 I25.10 Benign essential hypertensi on. Atheroscle rosis, coronary, [place] artery. HLD. Bradycardi a.- Stable, continue meds.- UA/ MA normal when checked 01/15, check yearly, no indication ACEI/ ARB.- Check lipids next lab draw. Asthma [id number] J45.90 9 Asthma, chronic. COPD. Current smoker. Pulmonary nodule.- Stable, continue meds.- Low dose lung CT scan next February 14. Smoker for 50 years; 1ppd; 50 pack history.- Encouraged smoking cessation. order nicotine patches 14mcg once a week for 6 weeks, then 7mcg once a week for 6 weeks, then stop. Bipolar disorder [id number] F31.9 Bipolar. Bulimia. Borderline personalit y disorder. Anxiety. Depression . PTSD. Hx of attempted suicide.- Continue mgmt through psychiatry .- Meds psychiatry is prescribin g- vitamin D, B12, depakote, klonopin, lamictal, prazosin, probiotic, prozac, trazodone, vitamin C, boswellia, bone builders Chronic pain [id number] G8 9.29 Chronic pain. Cervicalgi a. Spinal stenosis, cervical. Ankle pain, chronic. lumbago. Weakness. OA.- More discomfort to her neck. Will do salonpas on in AM and off at bedtime. 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 Per hematology in 2022, stable, no indication to evaluate further. Restless legs [id number] G 25.81 Muscle spasms. RLS. Worsening. Start mag oxide 400mg PO QHS and then re-evaluat e. Screening for malignant neoplasm of colon [id number] Z12.11 Active or passive immunization [id number] Z23 Flu: left armCOVID: Right arm [id number] ALLI PAT [address] [place] [address] 05/21/2024 11:51:17 05/21/2024 12:53:46 Cellulitis of perineum [id number] L03.315 63 year old female with onset [...] subsequent surroundin g cellulitis /soft tissue infection. [id number] DAMARI CHAPMAN APRN [address] [place] [address] 07/23/2024 14:26:28 07/23/2024 16:06:52 Supination deformity of foot [id number] M21.6X9 Struggling with ambulation with new AFO. is home bound, does not leave [facility] because of her medical conditions and mobility. order PT for further evaluation and management . Health Concerns Section Related Observation LastModified by Organization Detai ls LastModified Time None Recorded Concern Status LastModified by Organization Details LastModified Time None Recorded Advance Directives Directive None Recorded Payers Encounter Date Sequence Insurance Name Policy Number Policy Brar Covered Member ID Brar Member ID Guarantor Name 10/20/2023 1 [place] [employer] Jeannie Carbino [id number] Jeannie Carbino 10/20/2023 2 [facility] (MEDICAID) Jeannie Carbino [id number] Jeannie Carbino 03/28/2024 1 [place] [employer] Jeannie Carbino [id number] Jeannie Carbino 03/28/2024 2 [facility] (MEDICAID) Jeannie Carbino [id number] Jeannie Wadeino 04/12/2024 1 [place] [facility] Jeannie Wadeino [id number] Jeannie Carbino 04/12/2024 2 [facility] (MEDICAID) Jeannie Wadeino [id number] Jeannie Carbino 05/21/2024 1 [place] [facility] Jeannie Wadeino [id number] Jeannie Carbino 05/21/2024 2 [facility] (MEDICAID) Jeannie Wadeino [id number] Jeannie Carbino 07/23/2024 1 [place] [facility] Jeannie Wadeino [id number] Jeannie Carbino 07/23/2024 2 [facility] (MEDICAID) Jeannie Carbino [id number] Jeannie Carbino Notes Date Note Type Note Provider Name and Address Organization Details Recorded Time 10/20/2023 text/html Home visit for follow-up:- Urinary incont. Has depends PRN.- Constipation. Hemorrhoids. Takes senna, miralax 1/2 cap BID, colace, prep H. Uses prep H.- Seizures. Takes lamotrigine- KARINA. Managed with side sleeping.- Obesity. hx of gastric bypass. Hx of DM. Prediabetes. B12 deficiency. Vitamin D deficiency. Osteoporosis. Takes vitamin D, calcium citrate, B12. no longer on iron supplement. Takes MVI and supplements per recommendations of bariatric clinic.- Hypothyroidism. Takes levothyroxine- Headache. Has APAP PRN.- GERD. Takes pepcid, has prilosec PRN.- Leg edema. Completed course of PT. Does not wear compression socks.- Dizziness. see ROS.- HLD. CAD. HTN. Takes ASA, isosorbide, prazosin, atorvastatin.- COPD. Asthma. Smoker. Takes wixela, advair, albuterol PRN. Feels helpful regimen. Not needing emergency inahler.- Chronic pain. Cervicalgia. spinal stenosis cervical. Ankle pain, chronic. lumbago. Osteoarthrosis. Takes tizanidine, lidocaine patch, APAP PRN. Mag and diclofenac were stopped last visit per her desires.- Bipolar. bulimia. borderline personality disorder. anxiety. depression. PTSD. hx of suicide attempt. Takes prozac, klonopin, lamotrigine, depakote, prazosin, trazodone through psychiatry.- Macrocytosis. 01/14 labs- retic, normal; SPEP abnormal, elevated alpha1 and gamma, but no monoclonal protein, copper normal; B12 and folate normal; haptoglobin normal. [place] [facility] their note stated persistent macrocytosis since 1995, recommends no further work-up needed. DAMARIALYSSA CHAPMAN, WOOD PATTERN MAKER [address], [place], [address], [facility] 10/20/2023 11:06:26 03/28/2024 text/html Patient presents for evaluation and management of chronic right foot deformity, frequent falls, and concerns regarding inadequate orthopedic footwear. The patient is a 63-year-old female with a long-standing history of foot deformity, notably on the right side. This condition predates a surgical intervention she underwent a few years ago due to a fracture on the same foot. Despite surgical correction, she reports progressive worsening of her symptoms over the years, characterized by abnormal gait and excessive wear on the lateral aspect of her shoes, indicative of supination issues. She mentions the use of dnhz-bjn-[id number] shoes which have not alleviated her symptoms. He has not seen spectrographic analyst, orthopedics however is following her and suggested custom foot wear The patient also reports a repetitive history of falls, which she attributes to her foot deformity and instability. These falls have occurred despite the use of a wheeled walker, which she relies on for mobility. Her instability is exacerbated by her chronic foot condition, which affects her balance and gait, leading to frequent replacement of footwear due to uneven wear. BELIA STANLEY MD [address], [place], [address], [facility]. 03/28/2024 08:55:37 04/12/2024 text/html Home visit for follow-up:- Urinary incont. Has depends PRN.-- update 04.12.24. that has been pretty good. Denies hematuria, dysuria. Nocturia, about once per week.- Constipation. Hemorrhoids. Takes senna, miralax, colace, prep H. Uses prep H. Last visit miralax was adjusted to 1/2 cap BID PRN.-- update 04.12.24. Denies nausea, vomiting. Diarrhea, few times, feels r/t med in origin. Satisfied with current med regimen. Deniies rectal bleeding, bloody stools, black tarry stools.- Seizures. lamotrigine was stopped by team leader/research psychologist, now on depakote. Does not see neurology.-- update 04.12.24. Denies seizures.- KARINA. Managed with side sleeping.-- update 04.12.24. Denies fatigue, tired. Feels well rested in AM. no snoring that she is aware of.- Obesity. hx of gastric bypass. Hx of DM. Prediabetes. B12 deficiency. Vitamin D deficiency. Osteoporosis. Takes vitamin D, calcium citrate, B12. no longer on iron supplement. Takes MVI and supplements per recommendations of bariatric clinic.-- update 04.12.24. Feels diet is great.- Hypothyroidism. Takes levothyroxine- Headache. Has APAP PRN.-- update 04.12.24. headaches have been pretty bad. Feels r/t her spouse being sick, feels stress in origin. Not taking anything for headaches. Has scheduled APAP. If she has the headache, she does meditation. Getting headaches about once per week. The headache will last for not as long as they used to. About 30 minutes at the most. No migraines.- GERD. Takes pepcid, has prilosec PRN.-- update 04.12.24. Denies reflux.- Leg edema. Completed course of PT. Does not wear compression socks.-- update 04.12.24. no pedal edema currently. States sometimes, not often.- Dizziness. Last visit plan was to monitor, move slowly with position changes.-- update 04.12.24. Dizziness Sometimes. Feels r/t diet intake, stress. When she has the dizziness she sits and it resolves. Is used to it, it is not changing.- HLD. CAD. HTN. Takes ASA, isosorbide, prazosin, atorvastatin.-- denies chest pain, heaviness, tightness. Denies palpitations, fluttering. Denies PND, orthopnea. Denies syncope.- COPD. Asthma. Smoker. Takes wixela, advair, albuterol PRN. Feels helpful regimen. Not needing emergency inhaler.-- update 04.12.24. Is ready for smoking cessation. Is smoking 10 cig/ day. Feels SOB only with smoking. Cough, smokers phlegm. Reese in color. When she is SOB, she takes a deep breaths and it resolves. Denies wheezing. Does feel she needs more inhaler. She has an emergency inhaler, but not using it routinely; states using it a couple of times. She does not feel she needs other inhalers right now.- Chronic pain. Cervicalgia. spinal stenosis cervical. Ankle pain, chronic. lumbago. Osteoarthrosis. Takes tizanidine, lidocaine patch, APAP PRN. Mag and diclofenac were stopped last visit per her desires.-- update 04.12.24 notice some increase pain in my neck since surgery. For this, she does not want to do any pain meds. She would like lidocaine patches, she would like the lowest dose if possible.- Bipolar. bulimia. borderline personality disorder. anxiety. depression. PTSD. hx of suicide attempt. Takes prozac, klonopin, lamotrigine, depakote, prazosin, trazodone through psychiatry.-- update 04.12.24 Seeing psychiatry today, not addressing.- Macrocytosis. 01/14 labs- retic, normal; SPEP abnormal, elevated alpha1 and gamma, but no monoclonal protein, copper normal; B12 and folate normal; haptoglobin normal. [place] hematology [facility] their note stated persistent macrocytosis since 1995, recommends no further work-up needed. - RLS. Leg cramps. Monitoring for now.-- update 04.12.24. leg cramps are pretty bad. The restless legs are ok. Feels tizanidine less effective. DAMARI CHAPMAN, WOOD PATTERN MAKER [address], [place], [address], [facility]. 04/12/2024 15:53:11 05/21/2024 text/html Patient with lar ge, painful swollen lump to R labia, first noted 5 days ago, tender to even sit or put any pressure to perineal region. Since onset, the site has opened and spontaneously drained, but still with a small amount of local swelling.Denies any recent fevers.Has been treating with warm washcloth/compresses. Has had history of boils to underarms. Lives in assisted living facility. Does wear diapers due to urinary incontinence, but has not been wearing the last 4 days due to local tenderness. MAGED COLLAZO, ALLI [address], [place], [address], [facility]. 05/21/2024 12:58:27 07/23/2024 text/html Virtual visit robin olson FU: deformity of the foot. She went to [facility]24. She has new orthopedic shoes and a brace. The brace is to the right foot, it is an AFO. Has no breakdown around the foot. When she walks, her right foot is flopping, she is having a hard time trying to walk/ control her ankle/ foot movement. does use her walker for ambulation. no pain or discomfort. Feels tripping at times. DAMARI CHAPMAN, WOOD PATTERN MAKER [address], [place], [address], [facility]. 07/23/2024 15:43:49 OBGyn Episode No OBEpisode recorded.
--- OUTSIDE RECORDS SUMMARY | 2024-08-01 18:28 | XMS_ITS | Clinical Summary ---
Author Organization [facility] Address [facility] [place] [address] Care Team Providers Care Literacy Specialist Name Role Phone Hoang Castellanos APRN Primary Care Provider [phone] Allergies Active Allergy Reactions Criticality Noted Date [...] mg Tablet, SublingualIndication s:Coronary artery disease involving ruby coronary artery of ruby heart without angina pectoris Place 1 tablet [...] Miconazole PowderIndications:De rmal mycosis [address] [facility].(Non-Drug; Combo Route) route 2 times daily. 100 g 3 01/14/2022 Active isosorbide mononitrate CR (Imdur) 30 mg Tablet Sustained Release 24 hrIndications:Almanza ry artery disease involving ruby coronary artery of ruby heart without angina pectoris Take 1 tablet [...] Osteoporosis 02/02/2016 Overview (02/02/2016): DEXA done at [facility] on 10/29/15: osteoporosis at the left [...] 03/23/2022 Cerumen impaction 12/13/2014 02/05/2020 Atherosclerosis of ruby co ronary artery of ruby heart without angina pectoris 05/09/2013 Hypertension 05/09/2013 01/08/2020 Smokes cigarettes 05/09/2013 12/01/2021 Hypothyroidism 05/09/2013 01/08/2020 Obesity, S/P remote gastric bypass in 1996, prior VBG 05/09/2013 03/04/2020 Immunizations Name Administration Dates Next Due Covid-19 Bivalent (Pfizer Co mirnaty) 12yrs+ ([id number]) 05/13/2022 Covid-19 Monovalent (Pfizer Comirnaty purple cap) 12yrs+ () 06/10/2021,10/26/2020,09/25/2020 Influenza Quadrivalent, Pres ervative Free 05/13/2022,2021,05/01/2020,09/23 Influenza Trivalent w/Preservative 05/03,04/17/2013,05/25/2012,06/14,05/13/2009 Influenza Trivalent, Preservative Free 1 08/28/2017,05/19/2017,05/24/2016,05/30,05/03/2014,04/17/2013 Influenza Unspecified Formulation 07/14/2010, Pneumococcal 20-Valent Conju gate (Prevnar 20) 03/23/2022 Pneumococcal 23-Valent Polys accharide (Pneumovax 23) 05/19/2017,05/13/2008 Td Adult 01/22/2007 Td Adult (not absorbed) 01/22/2007 Tdap (Adacel, Boostrix) 03/28/2018 Zoster Recombinant (ShingRix) 03/04/2020, 020 Family History Medical History Relation Comments Depression [...] slept in a custodial (including now)? No 04/14/2023 Sex and Gender [...] 1990 Breast Cancer Share Decision Needed 2000 RSV Vaccine (1 - Risk 60-74 years 1-dose series) 2020 Breast Cancer screening 05/26/2023 05/26/2021, 11/09 Influenza (Flu) vaccine (1 o f 1 - Influenza standard series) 03/25/2024 05/13/2022, 2021, 05/01/2020, Additional history exists Diabetes Screening (HgbA1C o r Glucose) 07/13/2026 07/13/2023, 03/31/2022, 03/31/2022, Additional history exists Tetanus/Diphtheria/Pertussis Vaccines (2 - Td or Tdap) 03/28/2028 03/28/2018, 01/22/2007, 01/22/2007 Zoster vaccine Completed 03/04/2020, 09/24/2019 Pneumococcal Vaccine: At-Ris k 5-64yrs Completed 03/23/2022, 05/19/2017, 05/13/2008 Covid-19 Vaccine Completed 04/12/2024, 01/2023, 05/13/2022, Additional history exists Medical Devices Implanted Type Area Case Coordinator Device Identifier Shelf Expiration Date Model / Serial / Lot Graft Bone Filler [id number] Dbm Freeze Dried Chips ([id number]) (Autoreq) - [id number] Implanted:Qty : 1 on 10/30/2021 by Campos Puente MD at [facility] IMPLANTS N/A: Spine Cervical [employer] 06/16/2025 [id number] / [id number] / [id number] Graft Bone Filler 5cc Dbm Jar Putty [place] ([id number]) (Autoreq) - [id number] Implanted:Qty : 1 on 10/30/2021 by Campos Puente MD at [facility] IMPLANTS N/A: Spine Cervical [employer] - [employer] 06/08/2024 [id number] / [id number] / Yaya Spinal 3.5x25mm [place] Cervical Pre Cut Ti ([id number]) (Autoreq) - [id number] Implanted:Qty : 2 on 10/30/2021 by Campos Puente MD at [facility] IMPLANTS N/A: Spine Cervical [employer] - [employer] [id number] / / Screw Spinal 3.5x12mm Posterior Cervical Mltaxl Sld Ti ([id number]) (Autoreq) - [id number] Implanted:Qty : 4 on 10/30/2021 by Campos Puente MD at [facility] IMPLANTS N/A: Spine Cervical [employer] - [employer] [id number] / / Screw Spinal Set Posterior Cervical Mltaxl Sld Pt Infinity ([id number]) (Autoreq) - [id number] Implanted:Qty : 1 on 10/30/2021 by Campos Puente MD at [facility] IMPLANTS N/A: Spine Cervical [employer] [id number] / / Procedures Procedure Name Priority Date/Time Associated Diagnosis Comments COMPREHENSIVE METABOLIC PANEL Routine 07/13/2023 12:38 PM EST S/P gastric bypass Disorder of iron metabolism Intestinal malabsorption, unspecified type MAMMO SCREENING CAD AND JESSY BILATERAL Routine 05/26/2021 10:30 AM EDT Breast cancer screening by mammogram from Last 3 Months or Most Recently Relevant to Health Maintenance Results * (ABNORMAL) Comprehensive metabolic panel (non-fasting) (07/13/2023 12:38 PM EST) Glucose 131 65 - 199 mg/dL [facility] Comment:Diabetes: >=200 mg/d L plus symptoms Blood Urea Nitrogen 24(H) 8 - 18 mg/dL [facility] Creatinine 0.69(L) 0.70 - 1.20 mg/dL [facility] Sodium 139 135 - 145 mmol/L [facility] Potassium 4.5 3.5 - 5.0 mmol/L [facility] Comment: Please note: ??Patients with WBC >100,000 may have falsely elevated Potassium levels. ??For accurate Potassium quantification in these patients send serum separator tube (gold top) for subsequent determinations. ??Contact the Clinical Chemistry Laboratory if there are any questions. Chloride 100 98 - 107 mmol/L [facility] Carbon Dioxide 30 22 - 31 mmol/L [facility] Anion Gap 9 5 - 15 mmol/L [facility] Calcium 10.0 8.5 - 10.5 mg/dL [facility] Protein, Total 6.9 6.1 - 8.0 g/dL [facility] Albumin 4.4 3.2 - 5.2 g/dL [facility] Aspartate Aminotransferase 20 0 - 30 unit/L [facility] Alanine Aminotransferase 21 0 - 30 unit/L [facility] Alkaline Phosphatase 97 35 - 105 unit/L [facility] Bilirubin, Total <0.2(L) 0.2 - 1.3 mg/dL [facility] Est Glomerular Filtration Rate 97 >=60 mL/min/1. 73 m?? [facility] Comment: This patient's estimated GFR was [...] Lab Priya Charles APRN CHEMISTRY ORDERA BLES [facility] [place] [phone] * Mammo Screening Cad and Jessy Bilateral [...] Documents on File Type Date Recorded Patient Kennel Worker Expl anation Advance Directives and Livin g [...] is based on Patients wishes. Care Teams Literacy Specialist Relationship Specialty Start Date End Date Hoang Castellanos, AIR HOSE COUPLER [address] [place] [address] PCP - General Family Medicine 03/12/20
--- OUTSIDE RECORDS SUMMARY | 2024-08-01 18:28 | XMS_ITS | Encounter Summary ---
Author Organization [facility] Address [facility] [place] [address] Care Team Providers Care Advertising Statistical Clerk Name Role Phone Hoang Castellanos APRN [...] slept in a mcfp (including now)? No 04/14/2023 Sex and Gender Information Value Date Recorded Sex Assigned at Not on file Gender Identity Not on file Sexual Orientation Not on file documented as of this encounter Plan of Treatment Not on file documented as of this encounter Visit Diagnoses Not on filedocumented in this encounter Care Teams Advertising Statistical Clerk Relationship Specialty Start Date End Date Hoang Castellanos, PADDLE DYEING MACHINE OPERATOR [address] [place] [address] PCP - General Family Medicine 03/12/20 documented as of this encounter
--- OUTSIDE RECORDS SUMMARY | 2024-08-01 18:28 | XMS_ITS | Encounter Summary ---
[place] [address] Care Team Providers Care Web Worker Name Role Phone Hoang Castellanos APRN Primary Care Provider Encounter Details Date Type Department Care Team (Late st Contact Info) Description 07/14/2023 Telephone [place] [phone] Meena Hastings, RD Social History Tobacco Use Types Packs/Day [...] slept in a snf (including now)? No 04/14/2023 Sex and Gender Information Value Date Recorded Sex Assigned at Not on file Gender Identity Not on file Sexual Orientation Not on file documented as of this encounter Miscellaneous Notes * Telephone Encounter - Meena Hastings, RD - 07/14/2023 3:48 PM EST Called [facility] after appt with Jeannie on 07/13/23 and spoke with Daniella, the nursing education consultant. Reviewed vitamin and mineral supplement recommendation with [...] her to have documented. Daniella requested a copy center specialist of Jeannie's labwork be sent to the [facility]. Asked Daniella about Jeannie's gluten-free diet. Daniella reported that Jeannie has struggled with pain management since joining the [facility] about 1 yr ago. Jeannie will not [...] filedocumented in this encounter Care Teams Web Worker Relationship Specialty Start Date End Date Hoang Castellanos APRN [address] [place] [address] PCP - General Family Medicine 03/12/20 documented as of this encounter
--- OUTSIDE RECORDS SUMMARY | 2024-08-01 18:28 | XMS_ITS | Encounter Summary ---
Author Organization [facility] Address [facility] [place] [address] Care Team Providers Care Kettle Tender Name Role Phone Hoang Castellanos APRN [...] on filedocumented in this encounter Care Teams Kettle Tender Relationship Specialty Start Date End Date Hoang Castellanos, CONCRETE VIBRATOR OPERATOR [address] [place] [address] PCP - General Family Medicine 03/12/20 documented as of this encounter
--- OUTSIDE RECORDS SUMMARY | 2024-08-01 18:29 | XMS_ITS | Encounter Summary ---
Author Organization [facility] Address [facility] [place] [address] Care Team Providers Care Mini Baccarat Dealer Name Role Phone Hoang Castellanos APRN Primary Care Provider Encounter Details Date Type Department Care Team (Late st Contact Info) Description 04/12/2022 1:00 PM EDT Home Care Visit [facility] for Care [address] [place] [phone] Kimberly Austin, SPECIAL EDUCATION TEACHERS LT DRIVE IN WAITER/WAITRESS HOME VISIT Social History Tobacco Use Types [...] slept in a half-way (including now)? No 03/23/2022 Sex and Gender Information Value Date Recorded Sex Assigned at Not on file Gender Identity Not on file Sexual Orientation Not on file documented as of this encounter Plan of Treatment Not on file documented as of this encounter Visit Diagnoses Not on filedocumented in this encounter Home Health Visit - Care Plan Visit Details Visit Type -LTC DRIVE IN WAITER/WAITRESS Home Vis it Discipline -Home Health Aide Problems Problem Description Start Date Status Goals Interve ntions A Required Screenings Disciplines: [facility] 03/25/2022 Active 1 goal linked to scheduled/documente d intervention 1 goal intervention scheduled/documente d in this visit Other Disciplines: [facility] 03/25/2022 Active 1 goal linked to scheduled/documente d intervention 1 goal intervention scheduled/documente d in this visit House Keeping Disciplines: [facility] 03/25/2022 Active 1 goal linked to scheduled/documente d intervention 9 goal interventions scheduled/documente d in this visit Personal Care Disciplines: [facility] 03/25/2022 Active 1 goal linked [...] refused documented in this encounter Care Teams Mini Baccarat Dealer Relationship Specialty Start Date End Date Hoang Castellanos, DITCH WORKER [address] [place] [address] PCP - General Family Medicine 03/12/20 documented as of this encounter
--- OUTSIDE RECORDS SUMMARY | 2024-08-01 18:29 | XMS_ITS | Encounter Summary ---
Author Organization [facility] Address [facility] [place] [address] Care Team Providers Care Director Food And Beverage Name Role Phone Hoang Castellanos APRN Primary Care Provider Encounter Details Date Type Department Care Team (Late st Contact Info) Description 04/16/2022 8:00 AM EDT Home Care Visit [facility] for Care [address] [place] [phone] Kimberly Austin, CIRCULAR RIPSAW OPERATOR LT TRAVEL INSURANCE AGENT HOME VISIT Social History Tobacco Use Types [...] Care Plan Visit Details Visit Type -LTC TRAVEL INSURANCE AGENT Home Vis it Discipline -Home Health Aide Problems Problem Description Start Date Status Goals Interve ntions A Required Screenings Disciplines: [facility] 03/25/2022 Active 1 goal linked to scheduled/documente d intervention 1 goal intervention scheduled/documente d in this visit Other Disciplines: [facility] 03/25/2022 Active 1 goal linked to scheduled/documente d intervention 1 goal intervention scheduled/documente d in this visit House Keeping Disciplines: [facility] 03/25/2022 Active 1 goal linked to scheduled/documente d intervention 9 goal interventions scheduled/documente d in this visit Personal Care Disciplines: [facility] 03/25/2022 Active 1 goal linked to [...] clean-up of patient's environment as directed Completed [facility] KITCHEN AREA Description: [facility] kitchen area Problem:House Keeping Goal:Aide [...] documented in this encounter Care Teams Director Food And Beverage Relationship Specialty Start Date End Date Hoang Castellanos, SUPERVISOR DIALS [address] [place] [address] PCP - General Family Medicine 03/12/20 documented as of this encounter
--- OUTSIDE RECORDS SUMMARY | 2024-08-01 18:29 | XMS_ITS | Encounter Summary ---
Author [facility] Address [facility] [place] [address] Care Team Providers Care Automotive Vehicle Inspector Name Role Phone Hoang Castellanos APRN Primary Care Provider [phone] Encounter Details Date Type Department Care Team (Late st Contact Info) Description 03/26/2022 Home Care Visit [facility] for Care [address] [place] [phone] Kimberly Austin, [facility] TAR HEATER OPERATOR HOME VISIT Social History Tobacco Use [...] Care Plan Visit Details Visit Type -LTC TAR HEATER OPERATOR Home Vis it Discipline -Home Health [...] refused documented in this encounter Care Teams Automotive Vehicle Inspector Relationship Specialty Start Date End Date Hoang Castellanos, COCKTAIL WAITRESS [address] [place] [address] PCP - General Family Medicine 03/12/20 documented as of this encounter
--- OUTSIDE RECORDS SUMMARY | 2024-08-01 18:29 | XMS_ITS | Encounter Summary ---
Author Organization [facility] Address [facility] [place] [address] Care Team Providers Care Dye Padder Operator Name Role Phone Hoang Castellanos APRN Primary Care Provider [phone] Encounter Details Date Type Department Care Team (Late st Contact Info) Description 04/27/2022 9:00 AM EDT Home Care Visit [facility] Care [address] [place] [phone] Kimberly Austin, OLIVER FILTER OPERATOR LT STRINGS TEACHER HOME VISIT Social History Tobacco Use Types [...] Care Plan Visit Details Visit Type -LTC STRINGS TEACHER Home Vis it Discipline -Home Health Aide Problems Problem Description Start Date Status Goals Interve ntions A Required Screenings Disciplines: [facility] 03/25/2022 Active 1 goal linked to scheduled/documente d intervention 1 goal intervention scheduled/documente d in this visit Other Disciplines: [facility] 03/25/2022 Active 1 goal linked to scheduled/documente d intervention 1 goal intervention scheduled/documente d in this visit House Keeping Disciplines: [facility] 03/25/2022 Active 1 goal linked to scheduled/documente d intervention 9 goal interventions scheduled/documente d in this visit Personal Care Disciplines: [facility] 03/25/2022 Active 1 goal linked [...] be perfomed by aide as directed Completed [facility] KITCHEN AREA Description: Straighten kitchen area [...] refused documented in this encounter Care Teams Dye Padder Operator Relationship Specialty Start Date End Date Hoang Castellanos APRN [address] [place] [address] PCP - General Family Medicine 03/12/20 documented as of this encounter
--- OUTSIDE RECORDS SUMMARY | 2024-08-01 18:29 | XMS_ITS | Encounter Summary ---
Author Organization [facility] Address [facility] [place] [address] Care Team Providers Care Bin Piler Name Role Phone Hoang Castellanos APRN Primary Care Provider Encounter Details Date Type Department Care Team (Late st Contact Info) Description 04/07/2022 12:00 PM EDT Home Care Visit [facility] for Care [address] [place] [phone] Kimberly Austin, GORE STITCHER LT PAINT GRINDER HOME VISIT Social History Tobacco Use Types [...] Care Plan Visit Details Visit Type -LTC PAINT GRINDER Home Vis it Discipline -Home Health Aide [...] refused documented in this encounter Care Teams Bin Piler Relationship Specialty Start Date End Date Hoang Castellanos, PIG FARMER [address] [place] [address] PCP - General Family Medicine 03/12/20 documented as of this encounter
--- OUTSIDE RECORDS SUMMARY | 2024-08-01 18:29 | XMS_ITS | Encounter Summary ---
Author Organization [facility] Address [facility] [place] [address] Care Team Providers Care Loft Worker Name Role Phone Hoang Castellanos APRN Primary Care Provider Encounter Details Date Type Department Care Team (Late st Contact Info) Description 05/04/2022 9:00 AM EDT Home Care Visit [facility] for Care [address] [place] [phone] Kimberly Austin, PERMASTONE APPLICATOR LT FORGE HEATER HOME VISIT Social History Tobacco Use Types [...] Care Plan Visit Details Visit Type -LTC FORGE HEATER Home Vis it Discipline -Home Health Aide Problems Problem Description Start Date Status Goals Interve ntions A Required Screenings Disciplines: [facility] 03/25/2022 Active 1 goal linked to scheduled/documente d intervention 1 goal intervention scheduled/documente d in this visit Other Disciplines: [facility] 03/25/2022 Active 1 goal linked to scheduled/documente d intervention 1 goal intervention scheduled/documente d in this visit House Keeping Disciplines: [facility] 03/25/2022 Active 1 goal linked to scheduled/documente d intervention 9 goal interventions scheduled/documente d in this visit Personal Care Disciplines: [facility] 03/25/2022 Active 1 goal linked to [...] clean-up of patient's environment as directed Completed [facility] KITCH[facility] AREA Description: [facility] kitchen area Problem:House Keeping Goal:Aide [...] refused documented in this encounter Care Teams Loft Worker Relationship Specialty Start Date End Date Hoang Castellanos APRN [address] [place] [address] PCP - General Family Medicine 03/12/20 documented as of this encounter
--- OUTSIDE RECORDS SUMMARY | 2024-08-01 18:29 | XMS_ITS | Encounter Summary ---
Author Organization [facility] Address [facility] [place] [address] Care Team Providers Care Mineral Mixer Name Role Phone Hoang Castellanos APRN Primary Care Provider Encounter Details Date Type Department Care Team (Late st Contact Info) Description 04/19/2022 11:00 AM EDT Home Care Visit [facility] for Care [address] [place] [phone] Kimberly Austin, SOLUTION MAKE UP OPERATOR LT DOWELER HOME VISIT Social History Tobacco Use Types [...] Care Plan Visit Details Visit Type -LTC DOWELER Home Vis it Discipline -Home Health Aide Problems Problem Description Start Date Status Goals Interve ntions A Required Screenings Disciplines: [facility] 03/25/2022 Active 1 goal linked to scheduled/documente d intervention 1 goal intervention scheduled/documente d in this visit Other Disciplines: [facility] 03/25/2022 Active 1 goal linked to scheduled/documente d intervention 1 goal intervention scheduled/documente d in this visit House Keeping Disciplines: [facility] 03/25/2022 Active 1 goal linked to scheduled/documente d intervention 9 goal interventions scheduled/documente d in this visit Personal Care Disciplines: [facility] 03/25/2022 Active 1 goal linked [...] refused documented in this encounter Care Teams Mineral Mixer Relationship Specialty Start Date End Date Hoang Castelalnos, LARGE SHEETFED PRESS OPERATOR [address] [place] [address] PCP - General Family Medicine 03/12/20 documented as of this encounter
--- OUTSIDE RECORDS SUMMARY | 2024-08-01 18:29 | XMS_ITS | Encounter Summary ---
Author Organization [facility] Address [facility] [place] [address] Care Team Providers Care Assistant Professor Of German Name Role Phone Hoang Castellanos APRN Primary Care Provider Encounter Details Date Type Department Care Team (Late st Contact Info) Description 04/09/2022 12:00 PM EDT Home Care Visit [facility] for Care [address] [place] [phone] Kimberly Austin, LEAD OXIDE MILL TENDER LT ICE CREAM VAULT WORKER HOME VISIT Social History Tobacco Use [...] Care Plan Visit Details Visit Type -LTC ICE CREAM VAULT WORKER Home Vis it Discipline -Home Health Aide Problems Problem Description Start Date Status Goals Interve ntions A Required Screenings Disciplines: [facility] 03/25/2022 Active 1 goal linked to scheduled/documente d intervention 1 goal intervention scheduled/documente d in this visit Other Disciplines: [facility] 03/25/2022 Active 1 goal linked to scheduled/documente d intervention 1 goal intervention scheduled/documente d in this visit House Keeping Disciplines: [facility] 03/25/2022 Active 1 goal linked to scheduled/documente d intervention 9 goal interventions scheduled/documente d in this visit Personal Care Disciplines: [facility] 03/25/2022 Active 1 goal linked [...] documented in this encounter Care Teams Assistant Professor Of German Relationship Specialty Start Date End Date Hoang Castellanos, TYPE CASTING MACHINE OPERATOR [address] [place] [address] PCP - General Family Medicine 03/12/20 documented as of this encounter
--- OUTSIDE RECORDS SUMMARY | 2024-08-01 18:29 | XMS_ITS | Encounter Summary ---
Author Organization [facility] Address [facility] [place] [address] Care Team Providers Care Welt Cutter Name Role Phone Hoang Castellanos APRN Primary Care Provider Encounter Details Date Type Department Care Team (Late st Contact Info) Description 04/21/2022 11:00 AM EDT Home Care Visit [facility] for Care [address] [place] [phone] Kimberly Austin, FOURTH GRADE TEACHER LT ERP PROJECT MANAGER HOME VISIT Social History Tobacco Use [...] Care Plan Visit Details Visit Type -LTC ERP PROJECT MANAGER Home Vis it Discipline -Home Health Aide Problems Problem Description Start Date Status Goals Interve ntions A Required Screenings Disciplines: [facility] 03/25/2022 Active 1 goal linked to scheduled/documente d intervention 1 goal intervention scheduled/documente d in this visit Other Disciplines: [facility] 03/25/2022 Active 1 goal linked to scheduled/documente d intervention 1 goal intervention scheduled/documente d in this visit House Keeping Disciplines: [facility] 03/25/2022 Active 1 goal linked to scheduled/documente d intervention 9 goal interventions scheduled/documente d in this visit Personal Care Disciplines: [facility] 03/25/2022 Active 1 goal linked to [...] Completed [facility] KITCHEN AREA Description: [facility] kitchen area Problem:House Keeping Goal:Aide to assist [...] refused documented in this encounter Care Teams Welt Cutter Relationship Specialty Start Date End Date Hoang Castellanos, INSURANCE AND BENEFITS CLERK [address] [place] [address] PCP - General Family Medicine 03/12/20 documented as of this encounter
--- OUTSIDE RECORDS SUMMARY | 2024-08-01 18:29 | XMS_ITS | Encounter Summary ---
Author Organization [facility] Address [facility] [place] [address] Care Team Providers Care Computational Mathematician Name Role Phone Hoang Castellanos APRN Primary Care Provider Encounter Details Date Type Department Care Team (Late st Contact Info) Description 05/07/2022 11:15 AM EDT Home Care Visit [facility] for Care [address] [place] [phone] Kimberly Austin, STATISTICS INTERN LT CARE NAVIGATOR HOME VISIT Social History Tobacco Use Types [...] Care Plan Visit Details Visit Type -LTC CARE NAVIGATOR Home Vis it Discipline -Home Health Aide Problems Problem Description Start Date Status Goals Interve ntions A Required Screenings Disciplines: [facility] 03/25/2022 Active 1 goal linked to scheduled/documente d intervention 1 goal intervention scheduled/documente d in this visit Other Disciplines: [facility] 03/25/2022 Active 1 goal linked to scheduled/documente d intervention 1 goal intervention scheduled/documente d in this visit House Keeping Disciplines: [facility] 03/25/2022 Active 1 goal linked to scheduled/documente d intervention 9 goal interventions scheduled/documente d in this visit Personal Care Disciplines: [facility] 03/25/2022 Active 1 goal linked [...] refused documented in this encounter Care Teams Computational Mathematician Relationship Specialty Start Date End Date Hoang Castellanos, CAREERS ADVISER [address] [place] [address] PCP - General Family Medicine 03/12/20 documented as of this encounter
--- OUTSIDE RECORDS SUMMARY | 2024-08-01 18:29 | XMS_ITS | Encounter Summary ---
Author Organization [facility] Address [facility] [place] [address] Care Team Providers Care Cable Ferryboat Operator Name Role Phone Hoang Castellanos APRN Primary Care Provider Encounter Details Date Type Department Care Team (Late st Contact Info) Description 04/02/2022 8:00 AM EDT Home Care Visit [facility] for Care [address] [place] [phone] Kimberly Austin, AUTOMATION CONTROL TECHNICIAN LT CUPOLA OPERATOR INSULATION HOME VISIT Social History Tobacco Use Types [...] Care Plan Visit Details Visit Type -LTC CUPOLA OPERATOR INSULATION Home Vis it Discipline -Home Health Aide Problems Problem Description Start Date Status Goals Interve ntions A Required Screenings Disciplines: [facility] 03/25/2022 Active 1 goal linked to scheduled/documente d intervention 1 goal intervention scheduled/documente d in this visit Other Disciplines: [facility] 03/25/2022 Active 1 goal linked to scheduled/documente d intervention 1 goal intervention scheduled/documente d in this visit House Keeping Disciplines: [facility] 03/25/2022 Active 1 goal linked to scheduled/documente d intervention 9 goal interventions scheduled/documente d in this visit Personal Care Disciplines: [facility] 03/25/2022 Active 1 goal linked to [...] Completed documented in this encounter Care Teams Cable Ferryboat Operator Relationship Specialty Start Date End Date Hoang Castellanos, COSTUME DRAPER [address] [place] [address] PCP - General Family Medicine 03/12/20 documented as of this encounter
--- OUTSIDE RECORDS SUMMARY | 2024-08-01 18:29 | XMS_ITS | Encounter Summary ---
Author Organization [facility] [place] [address] Care Team Providers Care Chief Internal Auditor Name Role Phone Hoang Castellanos APRN Primary Care Provider Reason for Visit * Reason Comments Medication Refill Encounter Details Date Type Department Care Team (Late st Contact Info) Description 04/12/2022 Refill Primary Care at [facility] [address] [facility] [place] [place] [phone] Hoang Castellanos APRN [address] [place] [address] Social History Tobacco Use Types Packs/Day Years [...] PM EDT Last Prescription Fill Date: 12/01/2021- [employer] Number Dispensed and Refills: 1 puff Last [...] on filedocumented in this encounter Care Teams Chief Internal Auditor Relationship Specialty Start Date End Date Hoang Castellanos APRN [address] [place] [address] PCP - General Family Medicine 03/12/20 documented as of this encounter
--- OUTSIDE RECORDS SUMMARY | 2024-08-01 18:29 | XMS_ITS | Encounter Summary ---
Author Organization [facility] Address [facility] [place] [address] Care Team Providers Care Spray Rig Operator Name Role Phone Hoang Castellanos APRN Primary Care Provider Encounter Details Date Type Department Care Team (Late st Contact Info) Description 05/03/2022 12:00 PM EDT Home Care Visit [facility] for Care [address] [place] [phone] Kimberly Austin, NITRILES LAB TECHNICIAN LT LABORER HEADING HOME VISIT Social History Tobacco Use Types [...] Care Plan Visit Details Visit Type -LTC LABORER HEADING Home Vis it Discipline -Home Health Aide Problems Problem Description Start Date Status Goals Interve ntions A Required Screenings Disciplines: [facility] 03/25/2022 Active 1 goal linked to scheduled/documente d intervention 1 goal intervention scheduled/documente d in this visit Other Disciplines: [facility] 03/25/2022 Active 1 goal linked to scheduled/documente d intervention 1 goal intervention scheduled/documente d in this visit House Keeping Disciplines: [facility] 03/25/2022 Active 1 goal linked to scheduled/documente d intervention 9 goal interventions scheduled/documente d in this visit Personal Care Disciplines: [facility] 03/25/2022 Active 1 goal linked [...] refused documented in this encounter Care Teams Spray Rig Operator Relationship Specialty Start Date End Date Hoang Castellanos, MOSAIC LAYER [address] [place] [address] PCP - General Family Medicine 03/12/20 documented as of this encounter
--- OUTSIDE RECORDS SUMMARY | 2024-08-01 18:29 | XMS_ITS | Encounter Summary ---
Author Organization [facility] Address [facility] [place] [address] Care Team Providers Care Foreign Language Stenographer Name Role Phone Hoang Castellanos APRN Primary Care Provider Reason for Visit * Reason Comments Medication Refill Encounter Details Date Type Department Care Team (Late st Contact Info) Description 05/07/2022 [place] [phone] Michael Espinoza MD [facility] [place] [address] Social History Tobacco Use Types Packs/Day Years [...] on filedocumented in this encounter Care Teams Foreign Language Stenographer Relationship Specialty Start Date End Date Hoang Castellanos APRN [address] [place] [address] PCP - General Family Medicine 03/12/20 documented as of this encounter
--- OUTSIDE RECORDS SUMMARY | 2024-08-01 18:29 | XMS_ITS | Encounter Summary ---
Author Organization [facility] [place] [address] Care Team Providers Care Speed Belt Sander Name Role Phone Hoang Castellanos APRN Primary Care Provider Encounter Details Date Type Department Care Team (Latest Contact Info) Description 03/31/2022 9:15 AM EDT Laboratory Appointment Laboratory at [facility] [address] S/P gastric bypass; Disorder of [...] (ABNORMAL) Differential, Automated (03/31/2022 9:29 AM EDT) Neutrophil % 72.3 % [facility] Neutrophil Absolute 7.72(H) 1.70 - 6.10 x10(3)/mc L [facility] Lymph % 19.9 % [facility] Lymphocytes Abs 2.1 0.9 - 3.2 x10(3)/mc L [facility] Monocyte % 7.0 % [facility] Monocyte Abs 0.8 0.3 - 0.9 x10(3)/mc L [facility] Eos % 0.3 % [facility] Eosinophils Abs 0.0 0.0 - 0.4 x10(3)/mc L [facility] Basophil % 0.3 % [facility] Baso Absolute 0.0 0.0 - 0.1 x10(3)/mc L [facility] Immature Gran % 0.20 % [facility] Comment: Immature granulocytes(IG's)percentage and absolute count will include metamyelocytes, myelocytes, and promyelocytes. Blood smears from CBCs yielding IG's will be scanned manually for concordance. If this scan disagrees with the automated IG or if promyelocytes are noted, a manual differential will be performed. Immature Gran Absolute 0.02 0.00 - 0.04 x10(3)/mc L [facility] Blood 03/31/2022 9:29 AM EDT 03/31/2022 11:41 AM EDT Narrative Resulting Agency Comment Spec In Lab Sophie Mejia MD HEMATOLOGY ORDERABLE S Performing Organization Address City/[facility]/ZIP Co de Phone Number LABORATORY [address] [place] [address] * (ABNORMAL) Hemoglobin A1c (03/31/2022 9:29 AM EDT) Hemoglobin A1c 6.0(H) 4.3 - 5.6 % [facility] Estimated Average Glucose 126 mg/dL [facility] Blood 03/31/2022 9:29 AM EDT 03/31/2022 11:41 AM EDT Narrative Resulting Agency Comment Spec In Lab Hoang Castellanos APRN CHEMISTRY ORDERABLES LABORATORY [address] [place] [address] * Vitamin D, 25-Hydroxy (03/31/2022 9:29 AM EDT) Vitamin D Total 25 OH 54 21 - 100 ng/mL [facility] Vit D Interp Sufficient [facility] Blood 03/31/2022 9:29 AM EDT 03/31/2022 5:10 PM EDT Narrative Resulting Agency Comment Spec In Lab Hoang Castellanos APRN CHEMISTRY ORDERABLES [facility] [place] [address] * (ABNORMAL) CMP w/fasting Glucose (03/31/2022 9:29 AM EDT) Glucose Fasting 99 65 - 99 mg/dL [facility] Comment: ?Fasting* Glucose Interpretive Criteria [...] of Diabetes Mellitus, Position Statement from the [place] [employer]. ??Diabetes Care, Volume 33, Supplement 1, Jul 2009 Blood Urea Nitrogen 18 8 - 18 mg/dL [facility] Creatinine 0.72 0.70 - 1.20 mg/dL [facility] Sodium 143 135 - 145 mmol/L [facility] Potassium 4.2 3.5 - 5.0 mmol/L [facility] Comment: Please note: ??Patients with WBC >100,000 may have falsely elevated Potassium levels. ??For accurate Potassium quantification in these patients send serum separator tube (gold top) for subsequent determinations. ??Contact the Clinical Chemistry Laboratory if there are any questions. Chloride 104 98 - 107 mmol/L [facility] Carbon Dioxide 28 22 - 31 mmol/L [facility] Anion Gap 11 5 - 15 mmol/L [facility] Calcium 9.7 8.5 - 10.5 mg/dL [facility] Protein, Total 6.9 6.1 - 8.0 g/dL [facility] Albumin 4.0 3.2 - 5.2 g/dL [facility] Aspartate Aminotransferase 11 0 - 30 unit/L [facility] Alanine Aminotransferase 10 0 - 30 unit/L [facility] Alkaline Phosphatase 134(H) 35 - 105 unit/L [facility] Bilirubin, Total 0.2 0.2 - 1.3 mg/dL [facility] Est Glomerular Filtration Rate 95 >=60 mL/min/1. 73 m?? LABORATORY Comment: [...] Mejia MD CHEMISTRY ORDERABLES LABORATORY [address] [place] [address] * Lipid Panel (Reflex Direct LDL) (03/31/2022 9:29 AM EDT) Pathologist [facility] Cholesterol, Total 103 mg/dL [facility] Comment: Lower Risk: <200 mg/dL Average Risk: 200-239 mg/dL Higher Risk: >cd=354 mg/dL Triglyceride 111 mg/dL [facility] Comment: Average Risk/Lower Risk: <150 mg/dL Borderline High Risk: 150-199 mg/dL High Risk: 200-499 mg/dL Very High Risk: >jz=537 mg/dL HDL Cholesterol 47 mg/dL [facility] Comment: Males: ?? Higher Risk: <40 mg/dL Females: ?? Higher Risk: <50 mg/dL LDL Cholesterol 34 mg/dL [facility] Comment: Lowest Risk: <100 mg/dL Lower Risk: 100-129 mg/dL Borderline High Risk: 130-159 mg/dL High Risk: 160-189 mg/dL Very High Risk: >sz=459 mg/dL Cholesterol/HDL Ratio 2.2 ratio [facility] Lipid Interpretation See Note [facility] Comment: Lipid management should be guided by a patient? s ASCVD risk, goals and preferences. ACC/AHA Guidelines recommend high intensity statin if clinical ASCVD or LDL greater than or equal to 190 mg/dL. http://Wardrobe Housekeeper.com/FPS-YDA-Kqnhpnvqz Adults aged 40-75 with LDL 70-189 mg/dL should have their 10 year ASCVD risk estimated with the ACC/AHA ASCVD risk building construction estimator http://tools.acc.org/JAKCW-Orip-Rplujfcon/ Statin should be discussed if risk greater [...] Lab Sophie Mejia MD CHEMISTRY ORDERABLES [facility] [address] [place] [address] * TSH (03/31/2022 9:29 AM EDT) Thyroid Stimulating Hormone 2.42 0.27 - 4.20 mcIU/mL [facility] Comment: Reference Interval (mcIU/mL): Females: ??First Trimester: 0.23-3.88 ??Second Trimester: 0.22-3.90 ??Third Trimester: 0.44-4.66 Blood 03/31/2022 9:29 AM EDT 03/31/2022 11:41 AM EDT Narrative Resulting Agency Comment Spec In Lab Sophie Mejia MD CHEMISTRY ORDERABLES Performing Organization Address [facility] de Phone Number [facility] [address] [place] [address] * (ABNORMAL) Ferritin (03/31/2022 9:29 AM EDT) [facility] Ferritin 17(L) 30 - 400 ng/mL [facility] Comment: Pediatric reference ranges not [place] [facility] interpret with caution. Reference ranges for females greater than 50 years of age approach values for men, i.e., 30-400 ng/mL. Blood 03/31/2022 9:29 AM EDT 03/31/2022 11:41 AM EDT Narrative Resulting Agency Comment Spec In Lab Priya Charles APRN CHEMISTRY ORDERA BLES Performing Organization Address [facility] de Phone Number [facility] [address] [place] [address] * Folate, serum (03/31/2022 9:29 AM EDT) [facility] Folate 7.5 4.8 - 24.2 ng/mL [facility] Blood 03/31/2022 9:29 AM EDT 03/31/2022 5:10 PM EDT Narrative Resulting Agency Comment Spec In Lab Priya Charles APRN CHEMISTRY ORDERA BLES [facility] [address] [place] [address] * (ABNORMAL) Hemogram (03/31/2022 9:29 AM EDT) White Blood Cell 10.7(H) 4.0 - 9.5 x10(3)/mc L [facility] Red Blood Cell 4.46 4.00 - 5.21 x10(6)/mc L [facility] Hemoglobin 13.2 11.7 - 15.5 g/dL [facility] Hematocrit 42.9 35.7 - 45.8 % [facility] Mean Cell Volume 96.2(H) 82.6 - 94.4 fL [facility] Mean Cell Hemoglobin 29.6 27.1 - 32.0 pg [facility] Mean Cell Hemoglobin Concentration 30.8(L) 31.7 - 35.0 g/dL [facility] Platelet 277 145 - 357 x10(3)/mc L [facility] RDW Standard Deviation 53.0(H) 37.0 - 46.0 fL [facility] RDW coefficient of variation 14.6(H) 11.5 - 14.1 % [facility] Mean Platelet Volume 10.5 7.6 - 12.9 fL [facility] Blood 03/31/2022 9:29 AM EDT 03/31/2022 11:41 AM EDT Narrative Resulting Agency Comment Spec In Lab Priya Charles SPECIAL EDUCATION KINDERGARTEN TEACHER HEMATOLOGY ORDER [facility] [address] [place] [address] * (ABNORMAL) Iron and TIBC (03/31/2022 9:29 AM EDT) Iron 40 30 - 150 mcg/dL [facility] TIBC 381 250 - 450 mcg/dL [facility] Iron Saturation 10(L) 20 - 50 % [facility] Blood 03/31/2022 9:29 AM EDT 03/31/2022 11:41 AM EDT Narrative Resulting Agency Comment Spec In Lab Priya Charles APRN CHEMISTRY ORDERA BLES Performing Organization Address City/[facility]/ZIP Co de Phone Number LABORATORY [address] [place] [address] * PTH (03/31/2022 9:29 AM EDT) Parathyroid Hormone 52 15 - 65 pg/mL [facility] Blood 03/31/2022 9:29 AM EDT 03/31/2022 4:41 PM EDT Narrative Resulting Agency Comment Spec In Lab Priya Charles APRN CHEMISTRY ORDERA BLES Performing Organization Address [facility] Co de Phone Number [facility] [place] [place] [address] * Vitamin B12 (03/31/2022 9:29 AM EDT) Vitamin B12 690 232 - 1,245 pg/mL [facility] Blood 03/31/2022 9:29 AM EDT 03/31/2022 5:10 PM EDT Narrative Resulting Agency Comment Spec In Lab Priya Charles APRN CHEMISTRY ORDERA BLES Performing Organization Address [facility] Co de Phone Number [facility] [place] [address] * Vitamin B1, whole blood (03/31/2022 9:29 AM EDT) Vit B1 Lvl Wb (NOVEMBER) 150 70 - 180 nmol/L LABORATORY Comment: ADDITIONAL INFORMATION This test was developed and its performance characteristics determined by [facility] in a manner consistent with CLIA requirements. This test has not been cleared or approved by the U.S. Food and Drug Administration. Test Performed by: [facility] [address] [place] [address] Cloth Drier: Skinny Reyes M.D. Ph.D.; CLIA# [id number] Blood 03/31/2022 9:29 AM EDT 03/31/2022 4:59 PM EDT Narrative Resulting Agency Comment Spec In Lab Priya Charles APRN LAB SEND OUT ORD ERABLES [facility] [address] [place] [address] documented in this encounter Visit Diagnoses Diagnosis [...] disorders documented in this encounter Care Teams Speed Belt Sander Relationship Specialty Start Date End Date Hoang Castellanos APRN [address] [place] [address] PCP - General Family Medicine 03/12/20 documented as of this encounter
--- OUTSIDE RECORDS SUMMARY | 2024-08-01 18:29 | XMS_ITS | Encounter Summary ---
Author Organization [facility] Address [facility] [place] [address] Care Team Providers Care News Wire Photo Operator Name Role Phone Hoang Castellanos APRN Primary Care Provider Encounter Details Date Type Department Care Team (Late st Contact Info) Description 05/06/2022 Telephone Primary Care at [facility] [place] [phone] Prior, Gabriela Cruz Social History Tobacco Use [...] in a skilled nursing (including now)? No 03/23/2022 Sex and Gender Information Value Date Recorded Sex Assigned at Not on file Gender Identity Not on file Sexual Orientation Not on file documented as of this encounter Miscellaneous Notes * Telephone Encounter - Gabriela Torres - 05/06/2022 1:50 PM EDT Msg from PT on PSW line: PT wanted to know if release was rec'd for [place] Called back: Advised release had been rec'd documented in this encounter Plan of Treatment Not on file documented as of this encounter Visit Diagnoses Not on filedocumented in this encounter Care Teams News Wire Photo Operator Relationship Specialty Start Date End Date Hoang Castellanos APRN [address] [place] [address] PCP - General Family Medicine 03/12/20 documented as of this encounter
--- OUTSIDE RECORDS SUMMARY | 2024-08-01 18:29 | XMS_ITS | Encounter Summary ---
Author Organization [facility] Address [facility] [place] [address] Care Team Providers Care Software Recruiter Name Role Phone Hoang Castellanos APRN Primary Care Provider Encounter Details Date Type Department Care Team (Late st Contact Info) Description 04/30/2022 11:00 AM EDT Home Care Visit [facility] for Care [address] [place] [phone] Kimberly Austin, SALES ENABLEMENT CONSULTANT LT SENIOR BACKUP ADMINISTRATOR HOME VISIT Social History Tobacco Use [...] Plan Visit Details Visit Type -LTC SENIOR BACKUP ADMINISTRATOR Home Vis it Discipline -Home Health Aide Problems Problem Description Start Date Status Goals Interve ntions A Required Screenings Disciplines: [facility] 03/25/2022 Active 1 goal linked to scheduled/documente d intervention 1 goal intervention scheduled/documente d in this visit Other Disciplines: [facility] 03/25/2022 Active 1 goal linked to scheduled/documente d intervention 1 goal intervention scheduled/documente d in this visit House Keeping Disciplines: [facility] 03/25/2022 Active 1 goal linked to scheduled/documente d intervention 9 goal interventions scheduled/documente d in this visit Personal Care Disciplines: [facility] 03/25/2022 Active 1 goal linked to [...] N/A documented in this encounter Care Teams Software Recruiter Relationship Specialty Start Date End Date Hoang Castellanos APRN [address] [place] [address] PCP - General Family Medicine 03/12/20 documented as of this encounter
--- OUTSIDE RECORDS SUMMARY | 2024-08-01 18:29 | XMS_ITS | Encounter Summary ---
Author Organization [facility] Address [facility] [place] [address] Care Team Providers Care Unit Aide Tech Name Role Phone Hoang Castellanos APRN Primary Care Provider Encounter Details Date Type Department Care Team (Late st Contact Info) Description 04/26/2022 12:00 PM EDT Home Care Visit [facility] for Care [address] [place] [phone] Kimberly Austin, ADVERTISEMENT DISTRIBUTOR LT SYSTEMS SOFTWARE DESIGNER HOME VISIT Social History Tobacco Use Types [...] Care Plan Visit Details Visit Type -LTC SYSTEMS SOFTWARE DESIGNER Home Vis it Discipline -Home Health Aide Problems Problem Description Start Date Status Goals Interve ntions A Required Screenings Disciplines: [facility] 03/25/2022 Active 1 goal linked to scheduled/documente d intervention 1 goal intervention scheduled/documente d in this visit Other Disciplines: [facility] 03/25/2022 Active 1 goal linked to scheduled/documente d intervention 1 goal intervention scheduled/documente d in this visit House Keeping Disciplines: [facility] 03/25/2022 Active 1 goal linked to scheduled/documente d intervention 9 goal interventions scheduled/documente d in this visit Personal Care Disciplines: [facility] 03/25/2022 Active 1 goal linked to scheduled/documente [...] refused documented in this encounter Care Teams Unit Aide Tech Relationship Specialty Start Date End Date Hoang Castellanos, BLEACH ANALYST [address] [place] [place] [address] PCP - General Family Medicine 03/12/20 documented as of this encounter
--- OUTSIDE RECORDS SUMMARY | 2024-08-01 18:29 | XMS_ITS | Encounter Summary ---
Author Organization [facility] Address [facility] [place] [address] Care Team Providers Care School Coordinator Name Role Phone Hoang Castellanos APRN Primary Care Provider [phone] Encounter Details Date Type Department Care Team (Late st Contact Info) Description 03/30/2022 8:00 AM EDT Home Care Visit [facility] for Care [address] [place] [phone] Kimberly Austin, RAG CUTTING MACHINE FEEDER LT SNACK STEWARDESS HOME VISIT Social History Tobacco Use Types [...] Care Plan Visit Details Visit Type -LTC SNACK STEWARDESS Home Vis it Discipline -Home Health Aide Problems Problem Description Start Date Status Goals Interve ntions A Required Screenings Disciplines: [facility] 03/25/2022 Active 1 goal linked to scheduled/documente d intervention 1 goal intervention scheduled/documente d in this visit Other Disciplines: [facility] 03/25/2022 Active 1 goal linked to scheduled/documente d intervention 1 goal intervention scheduled/documente d in this visit House Keeping Disciplines: [facility] 03/25/2022 Active 1 goal linked to scheduled/documente d intervention 9 goal interventions scheduled/documente d in this visit Personal Care Disciplines: [facility] 03/25/2022 Active 1 goal linked [...] refused documented in this encounter Care Teams School Coordinator Relationship Specialty Start Date End Date Hoang Castellanos APRN [address] [place] [address] PCP - General Family Medicine 03/12/20 documented as of this encounter
--- OUTSIDE RECORDS SUMMARY | 2024-08-01 18:29 | XMS_ITS | Encounter Summary ---
Author Organization [facility] [place] [address] Care Team Providers Care Livestock Farmers Name Role Phone Hoang Castellanos APRN Primary Care Provider Reason for Visit * Reason Comments Medication Refill Encounter Details Date Type Department Care Team (Late st Contact Info) Description 05/07/2022 Refill Primary Care at [facility] [address] [facility] [place] [phone] Hoang Castellanos APRN [address] [place] [address] Social History Tobacco Use Types Packs/Day Years [...] Kimberly M [facility] None 05/20/2022 8:00 AM [facility] DX ROOM 2 MH Xray [facility] Rad 05/20/2022 9:00 AM Freddy Dolan [place] [id number] 05/20/2022 To Be Determined Norman, Kimberly M [...] None 06/23/2022 To Be Determined [facility] If no appointment recommendation at last [...] on filedocumented in this encounter Care Teams Livestock Farmers Relationship Specialty Start Date End Date Hoang Castellanos APRN [address] [place] [address] PCP - General Family Medicine 03/12/20 documented as of this encounter
--- OUTSIDE RECORDS SUMMARY | 2024-08-01 18:29 | XMS_ITS | Encounter Summary ---
Author Organization [facility] Address [facility] [place] [address] Care Team Providers Care Insecticide Supervisor Name Role Phone Hoang Castellanos APRN Primary Care Provider Encounter Details Date Type Department Care Team (Late st Contact Info) Description 05/05/2022 12:00 PM EDT Home Care Visit [facility] for Care [address] [place] [phone] Kimberly Austin, DIE ENGRAVER LT STORE GROUP MANAGER HOME VISIT Social History Tobacco Use [...] Care Plan Visit Details Visit Type -LTC STORE GROUP MANAGER Home Vis it Discipline -Home Health Aide Problems Problem Description Start Date Status Goals Interve ntions A Required Screenings Disciplines: [facility] 03/25/2022 Active 1 goal linked to scheduled/documente d intervention 1 goal intervention scheduled/documente d in this visit Other Disciplines: [facility] 03/25/2022 Active 1 goal linked to scheduled/documente d intervention 1 goal intervention scheduled/documente d in this visit House Keeping Disciplines: [facility] 03/25/2022 Active 1 goal linked to scheduled/documente d intervention 9 goal interventions scheduled/documente d in this visit Personal Care Disciplines: [facility] 03/25/2022 Active 1 goal linked [...] clean-up of patient's environment as directed Completed [facility] Description: Straighten kitchen area Problem:House [...] refused documented in this encounter Care Teams Insecticide Supervisor Relationship Specialty Start Date End Date Hoang Castellanos, HEADEND TECHNICIAN [address] [place] [address] PCP - General Family Medicine 03/12/20 documented as of this encounter
--- OUTSIDE RECORDS SUMMARY | 2024-08-01 18:29 | XMS_ITS | Encounter Summary ---
Author Organization Count Includes [facility] Address [facility] [place] [address] Care Team Providers Care Shingle Catcher Name Role Phone Hoang Castellanos APRN Primary Care Provider Encounter Details Date Type Department Care Team (Late st Contact Info) Description 05/06/2022 12:00 PM EDT Home Care Visit [facility] for Care [address] [place] [phone] Kimberly Austin, SENIOR DESIGNER/ART DIRECTOR LT HYDROLOGY PROFESSOR HOME VISIT Social History Tobacco Use Types [...] Care Plan Visit Details Visit Type -LTC HYDROLOGY PROFESSOR Home Vis it Discipline -Home Health Aide Problems Problem Description Start Date Status Goals Interve ntions A Required Screenings Disciplines: [facility] 03/25/2022 Active 1 goal linked to scheduled/documente d intervention 1 goal intervention scheduled/documente d in this visit Other Disciplines: [facility] 03/25/2022 Active 1 goal linked to scheduled/documente d intervention 1 goal intervention scheduled/documente d in this visit House Keeping Disciplines: [facility] 03/25/2022 Active 1 goal linked to scheduled/documente d intervention 9 goal interventions scheduled/documente d in this visit Personal Care Disciplines: [facility] 03/25/2022 Active 1 goal linked [...] clean-up of patient's environment as directed Completed [facility] Description: Straighten kitchen area Problem:House [...] refused documented in this encounter Care Teams Shingle Catcher Relationship Specialty Start Date End Date Hoang Castellanos, BULKHEAD CARPENTER [address] [place] [address] PCP - General Family Medicine 03/12/20 documented as of this encounter
--- OUTSIDE RECORDS SUMMARY | 2024-08-01 18:29 | XMS_ITS | Encounter Summary ---
Author Organization [facility] Address [facility] [place] [address] Care Team Providers Care Box Toe Buffer Name Role Phone Hoang Castellanos APRN Primary Care Provider Encounter Details Date Type Department Care Team (Late st Contact Info) Description 04/01/2022 8:00 AM EDT Home Care Visit [facility] for Care [address] [place] [phone] Kimberly Austin, CUT FILER LT PHYSIOTHERAPY PRACTICE MANAGER HOME VISIT Social History Tobacco Use [...] Care Plan Visit Details Visit Type -LTC PHYSIOTHERAPY PRACTICE MANAGER Home Vis it Discipline -Home Health [...] refused documented in this encounter Care Teams Box Toe Buffer Relationship Specialty Start Date End Date Hoagn Castellanos, NEWSPAPER DELIVERY DRIVER [address] [place] [address] PCP - General Family Medicine 03/12/20 documented as of this encounter
--- OUTSIDE RECORDS SUMMARY | 2024-08-01 18:29 | XMS_ITS | Encounter Summary ---
Author Organization [facility] [place] [address] Care Team Providers Care Police Worker Name Role Phone Hoang Castellanos APRN Primary Care Provider Encounter Details Date Type Department Care Team (Late st Contact Info) Description 03/25/2022 Telephone Primary Care at [facility] [address] [facility] [phone] Jeannie Luciano, RN Social History Tobacco Use [...] and notes faxed to facility. Lashawn Brunner, TURBINE SUBASSEMBLER to Me ??? Hoang Castellanos, DIAL MOUNTER ?? 12:30 PM Samara Gallegos provides Level II (SNF) and Level III ([facility]). We can certainly send a referral, is pt/spouse consenting to referral? Thanks Lashawn * Telephone Encounter - Jeannie Luciano RN - 03/25/2022 1:55 PM EDT Message received from Angela at [facility] (CHANCE on file) asking for call back to discuss a referral to an JUDITH for Jeannie. [facility] is Samara Gallegos in [facility]. Contact at [facility] is Colin Martinez [phone] fax#[phone]. Angela said a referral is needed to [...] on filedocumented in this encounter Care Teams Police Worker Relationship Specialty Start Date End Date Hoang Castellanos, DIAL MOUNTER [address] [place] [address] PCP - General Family Medicine 03/12/20 documented as of this encounter
--- OUTSIDE RECORDS SUMMARY | 2024-08-01 18:29 | XMS_ITS | Encounter Summary ---
Author Organization [facility] Address [facility] [place] [address] Care Team Providers Care Vacation Planner Name Role Phone Hoang Castellanos APRN Primary Care Provider Encounter Details Date Type Department Care Team (Late st Contact Info) Description 04/20/2022 8:15 AM EDT Home Care Visit [facility] for Care [address] [place] [phone] Kimberly Austin, MILITARY TECHNICIAN LT SALESPERSON [employer] HOME VISIT Social History Tobacco Use Types [...] Care Plan Visit Details Visit Type -LTC SALESPERSON [employer] Home Vis it Discipline -Home Health Aide Problems Problem Description Start Date Status Goals Interve ntions A Required Screenings Disciplines: [facility] 03/25/2022 Active 1 goal linked to scheduled/documente d intervention 1 goal intervention scheduled/documente d in this visit Other Disciplines: [facility] 03/25/2022 Active 1 goal linked to scheduled/documente d intervention 1 goal intervention scheduled/documente d in this visit House Keeping Disciplines: [facility] 03/25/2022 Active 1 goal linked to scheduled/documente d intervention 9 goal interventions scheduled/documente d in this visit Personal Care Disciplines: [facility] 03/25/2022 Active 1 goal linked [...] [facility] KITCHEN AREA Description: Straighten kitchen area [...] refused documented in this encounter Care Teams Vacation Planner Relationship Specialty Start Date End Date Hoang Castellanos, LENS BLANK GAUGER [address] [place] [address] PCP - General Family Medicine 03/12/20 documented as of this encounter
--- OUTSIDE RECORDS SUMMARY | 2024-08-01 18:29 | XMS_ITS | Encounter Summary ---
Author Organization [facility] Address [facility] [place] [address] Care Team Providers Care Chef De Froid Name Role Phone Hoang Castellanos APRN Primary Care Provider Encounter Details Date Type Department Care Team (Late st Contact Info) Description 04/20/2022 Home Care Visit [facility] for Care [address] [place] [phone] Farrah Jama TELEPHONE ENCOUNTER Social History [...] [facility] CLIENT IS [facility]CE[facility]RU [facility]. PER BRITTA CLIENT IS VERY HAPPY WITH BARK [employer]. 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 BRITTA ALSO INDICATED THAT CLIENT WOULD LIKE 3 HOURS EACH DAY IF POSSIBLE. I LET BRITTA KNOW THAT I WOULD LOOK AT THE [employer]'S SCHEDULE AND SEE WHAT WE COULD DO. OTHER THAN THAT, BRITTA INDICATED THE CLIENT HAS NO QUESTIONS OR CONCERNS AT THIS TIME. documented in this encounter Plan of Treatment Not on file documented as of this encounter Visit Diagnoses Not on filedocumented in this encounter Care Teams Chef De Froid Relationship Specialty Start Date End Date Hoang Castellanos APRN [address] [place] [address] PCP - General Family Medicine 03/12/20 documented as of this encounter
--- OUTSIDE RECORDS SUMMARY | 2024-08-01 18:29 | XMS_ITS | Encounter Summary ---
Author Organization [facility] Address [facility] [place] [address] Care Team Providers Care Kier Boiler Name Role Phone Hoang Castellanos APRN Primary Care Provider Encounter Details Date Type Department Care Team (Late st Contact Info) Description 04/28/2022 12:00 PM EDT Home Care Visit [facility] for Care [address] [place] [phone] Kimberly Austin, ELECTRONIC BENCH TECHNICIAN LT WEB SITE MANAGER HOME VISIT Social History Tobacco Use [...] Care Plan Visit Details Visit Type -LTC WEB SITE MANAGER Home Vis it Discipline -Home Health Aide Problems Problem Description Start Date Status Goals Interve ntions A Required Screenings Disciplines: [facility] 03/25/2022 Active 1 goal linked to scheduled/documente d intervention 1 goal intervention scheduled/documente d in this visit Other Disciplines: [facility] 03/25/2022 Active 1 goal linked to scheduled/documente d intervention 1 goal intervention scheduled/documente d in this visit House Keeping Disciplines: [facility] 03/25/2022 Active 1 goal linked to scheduled/documente d intervention 9 goal interventions scheduled/documente d in this visit Personal Care Disciplines: [facility] 03/25/2022 Active 1 goal linked to scheduled/documente [...] Completed documented in this encounter Care Teams Kier Boiler Relationship Specialty Start Date End Date Hoang Castellanos, HANDLE TURNER [address] [place] [address] PCP - General Family Medicine 03/12/20 documented as of this encounter
--- OUTSIDE RECORDS SUMMARY | 2024-08-01 18:29 | XMS_ITS | Encounter Summary ---
Author Organization [facility] Address [facility] [place] [address] Care Team Providers Care Block Placer Name Role Phone Hoang Castellanos APRN Primary Care Provider Encounter Details Date Type Department Care Team (Late st Contact Info) Description 03/25/2022 Home [facility] [address] [place] [phone] Kimberly Austin, [facility] WELDING OPERATOR HOME VISIT Social History Tobacco Use [...] Care Plan Visit Details Visit Type -LTC WELDING OPERATOR Home Vis it Discipline -Home Health Aide Problems Problem Description Start Date Status Goals Interve ntions A Required Screenings Disciplines: [facility] 03/25/2022 Active 1 goal linked to scheduled/documente d intervention 1 goal intervention scheduled/documente d in this visit Other Disciplines: [facility] 03/25/2022 Active 1 goal linked to scheduled/documente d intervention 1 goal intervention scheduled/documente d in this visit House Keeping Disciplines: [facility] 03/25/2022 Active 1 goal linked to scheduled/documente d intervention 9 goal interventions scheduled/documente d in this visit Personal Care Disciplines: [facility] 03/25/2022 Active 1 goal linked to scheduled/documente [...] Completed documented in this encounter Care Teams Block Placer Relationship Specialty Start Date End Date Hoang Castellanos, COAL GETTER [address] [place] [address] PCP - General Family Medicine 03/12/20 documented as of this encounter
--- OUTSIDE RECORDS SUMMARY | 2024-08-01 18:29 | XMS_ITS | Encounter Summary ---
Author Organization [facility] Address [facility] [place] [address] Care Team Providers Care Mid Level Practitioner Name Role Phone Hoang Castellanos APRN Primary Care Provider Encounter Details Date Type Department Care Team (Late st Contact Info) Description 04/29/2022 12:00 PM EDT Home Care Visit [facility] for Care [address] [place] [phone] Kimberly Austin, MOTOR VEHICLE EMISSIONS INSPECTOR LT SOIL SCIENTIST HOME VISIT Social History Tobacco Use Types [...] Care Plan Visit Details Visit Type -LTC SOIL SCIENTIST Home Vis it Discipline -Home Health Aide Problems Problem Description Start Date Status Goals Interve ntions A Required Screenings Disciplines: [facility] 03/25/2022 Active 1 goal linked to scheduled/documente d intervention 1 goal intervention scheduled/documente d in this visit Other Disciplines: [facility] 03/25/2022 Active 1 goal linked to scheduled/documente d intervention 1 goal intervention scheduled/documente d in this visit House Keeping Disciplines: [facility] 03/25/2022 Active 1 goal linked to scheduled/documente d intervention 9 goal interventions scheduled/documente d in this visit Personal Care Disciplines: [facility] 03/25/2022 Active 1 goal linked to scheduled/documente [...] N/A documented in this encounter Care Teams Mid Level Practitioner Relationship Specialty Start Date End Date Hoang Castellanos, TANK ERECTOR [address] [place] [address] PCP - General Family Medicine 03/12/20 documented as of this encounter
--- OUTSIDE RECORDS SUMMARY | 2024-08-01 18:29 | XMS_ITS | Encounter Summary ---
Author Organization [facility] Address [facility] [place] [address] Care Team Providers Care Admissions Manager Name Role Phone Hoang Castellanos APRN Primary Care Provider Reason for Visit * Reason Onset Date Comments Colonoscopy 03/25/2022 Pt screening jessica sierra Encounter Details Date Type Department Care Team (Late st Contact Info) Description 03/25/2022 Telephone Surgical Specialties at [facility] [address] [facility] [place] [phone] [place] Arvizu Colonoscopy (Pt screening questions) Social [...] - 03/25/2022 10:20 AM EDT Jeannie Rico [phone] PCP: Hoang Castellanos APRN Received referral: [...] history of heart surgery, stent placement, or CO (heart attack)? No 4. Do you have [...] on filedocumented in this encounter Care Teams Admissions Manager Relationship Specialty Start Date End Date Hoang Castellanos, SAM [address] [place] [address] PCP - General Family Medicine 03/12/20 documented as of this encounter
--- OUTSIDE RECORDS SUMMARY | 2024-08-01 18:29 | XMS_ITS | Encounter Summary ---
Author Organization [facility] Address [facility] [address] Care Team Providers Care Senior Reliability Engineer Name Role Phone Hoang Castellanos APRN Primary Care Provider Encounter Details Date Type Department Care Team (Late st Contact Info) Description 04/13/2022 9:30 AM EDT Home Care Visit [facility] for Care [address] [place] [phone] Kimberly Austin, SPORTS TEAM MANAGER LT DRIVEWAY ATTENDANT HOME VISIT Social History Tobacco Use Types [...] Care Plan Visit Details Visit Type -LTC DRIVEWAY ATTENDANT Home Vis it Discipline -Home Health Aide Problems Problem Description Start Date Status Goals Interve ntions A Required Screenings Disciplines: [facility] 03/25/2022 Active 1 goal linked to scheduled/documente d intervention 1 goal intervention scheduled/documente d in this visit Other Disciplines: [facility] 03/25/2022 Active 1 goal linked to scheduled/documente d intervention 1 goal intervention scheduled/documente d in this visit House Keeping Disciplines: [facility] 03/25/2022 Active 1 goal linked to scheduled/documente d intervention 9 goal interventions scheduled/documente d in this visit Personal Care Disciplines: [facility] 03/25/2022 Active 1 goal linked to [...] refused documented in this encounter Care Teams Senior Reliability Engineer Relationship Specialty Start Date End Date Hoang Castellanos, SKULL CHOPPER [address] [place] [address] PCP - General Family Medicine 03/12/20 documented as of this encounter
--- OUTSIDE RECORDS SUMMARY | 2024-08-01 18:29 | XMS_ITS | Encounter Summary ---
Author Organization [facility] Address [facility] [place] [address] Care Team Providers Care Tower Director Name Role Phone Hoang Castellanos APRN Primary Care Provider Encounter Details Date Type Department Care Team (Late st Contact Info) Description 04/14/2022 12:00 PM EDT Home Care Visit [facility] for Care [address] [place] [phone] Kimberly Austin, WOOD STOCK BLANK HANDLER LT WAYBILL CLERK HOME VISIT Social History Tobacco Use Types [...] Care Plan Visit Details Visit Type -LTC WAYBILL CLERK Home Vis it Discipline -Home Health Aide Problems Problem Description Start Date Status Goals Interve ntions A Required Screenings Disciplines: [facility] 03/25/2022 Active 1 goal linked to scheduled/documente d intervention 1 goal intervention scheduled/documente d in this visit Other Disciplines: [facility] 03/25/2022 Active 1 goal linked to scheduled/documente d intervention 1 goal intervention scheduled/documente d in this visit House Keeping Disciplines: [facility] 03/25/2022 Active 1 goal linked to scheduled/documente d intervention 9 goal interventions scheduled/documente d in this visit Personal Care Disciplines: [facility] 03/25/2022 Active 1 goal linked [...] Completed documented in this encounter Care Teams Tower Director Relationship Specialty Start Date End Date Hoang Castellanos APRN [address] [place] [phone] PCP - General Family Medicine 03/12/20 documented as of this encounter
--- OUTSIDE RECORDS SUMMARY | 2024-08-01 18:29 | XMS_ITS | Encounter Summary ---
Author Organization [facility] Address [facility] [place] [address] Care Team Providers Care Fruit Dumper Name Role Phone Hoang Castellanos APRN Primary Care Provider Reason for Visit * Reason Onset Date Comments Prior Authorization 04/20/2022 Spiriva Resp imat 2.5mcg Encounter Details Date Type Department Care Team (Late st Contact Info) Description 04/20/2022 Telephone Primary Care at [facility] [address] [place] [phone] Gautam Davidson Prior Authorization (Spiriva Respimat 2.5mcg) [...] Prior Authorization Request received via: Fax from [employer]: Medicare Part D Renewed previous Prior [...] on filedocumented in this encounter Care Teams Fruit Dumper Relationship Specialty Start Date End Date Hoang Castellanos, REFERENCE DATA EXPERT [address] [place] [address] PCP - General Family Medicine 03/12/20 documented as of this encounter
--- OUTSIDE RECORDS SUMMARY | 2024-08-01 18:29 | XMS_ITS | Encounter Summary ---
Author Organization [facility] Address [facility] [place] [address] Care Team Providers Care Steel Handler Name Role Phone Hoang Castellanos APRN Primary Care Provider Encounter Details Date Type Department Care Team (Late st Contact Info) Description 04/15/2022 12:00 PM EDT Home Care Visit [facility] for Care [address] [place] [phone] Kimberly Austin, CARDING DOUBLER LT ACQUISITIONS LIBRARIAN HOME VISIT Social History Tobacco Use Types [...] Care Plan Visit Details Visit Type -LTC ACQUISITIONS LIBRARIAN Home Vis it Discipline -Home Health Aide [...] refused documented in this encounter Care Teams Steel Handler Relationship Specialty Start Date End Date Hoang Castellanos, MECHANICAL DESIGNER [address] [place] [address] PCP - General Family Medicine 03/12/20 documented as of this encounter
--- OUTSIDE RECORDS SUMMARY | 2024-08-01 18:29 | XMS_ITS | Encounter Summary ---
Author Organization [facility] [place] [address] Care Team Providers Care Hitch Technician Name Role Phone Hoang Castellanos APRN Primary Care Provider Reason for Referral * Surgical (Routine) - Closed Specialty Diagnoses / Procedures Referred By Vanita dimas Referred To Contact Gastroenterology Diagnoses Colon cancer screening screen Procedures PRO COLONOSCOPY, DIAGNOSTIC PRO ANESTH, LWR INTESTINE, SCREENING COLONOSCOPY colo Hoang Castellanos APRN [address] [place] [address] [facility] Endoscopy [address] [place] [address] Referral ID Status Reason Start Date Expiration Date V isits Requested Visits Authorized [id number] Closed Test Only 03/23/2022 03/23/2023 6 6 * Consultation (Routine) - Specialty Diagnoses / Procedures Referred By Vanita dimas Referred To Contact Ophthalmology Diagnoses Cataract of right eye, unspecified cataract type Hoang Castellanos APRN [address] [place] [address] Ruby Calderon, OD [facility] [place] [address] Referral ID Status Reason Start Date Expiration Date V isits Requested Visits Authorized [id number] Consult, Test & Treat 03/23/2022 03/23/2023 6 6 Encounter Details Date Type Department Care Team (Late st Contact Info) Description 03/23/2022 9:00 AM EDT Office Visit Primary Care at [address] [place] [address] Hoang Castellanos, CHISEL TRIMMER [address] [place] [address] Annual physical exam; Depression, unspecified depression type; [...] this encounter Progress Notes * Hoang Castellanos, CHISEL TRIMMER - 03/23/2022 9:00 AM EDT Subjective: HPI: Jeannie Rico is a 61 y.o. female presenting to the [facility] for an annual chronicdisease review. 1. Depression, unspecified depression type A lot of anxiety and depression She has an appt w Psychiatry on 04/01 Tried viibryd/trintellix/abilify but did not tolerate d/t side effects States she should not be taking Vraylar 2. Cataract of right eye, unspecified cataract type Referral to Ophthalmology at [facility] Evaluated by Jasmeet [facility] at [facility] Right eye completely [...] -- 210 215 No results for input(s): HMLAFPGD49, SFOLATE, JKNJ0CU, VITAMINB6, 25OHVITD, DTSU82OE, VITAMIND, VITAMINA, VITAMINE, IRON, TRANSFERRIN, IRONSAT, FERRITIN [...] daily. ??? Miconazole Powder 1 Application by [facility].(Non-Drug; Combo Route) route 2 times daily. ??? [...] daily as needed. ??? Miscellaneous Medical Supply [facility] 1 walker on wheels with seat ??? [...] ??? Osteoporosis DEXA done at [facility] on 10/29/15: osteoporosis at the left hip [...] 17.4) performed by Campos Puente MD at [facility] MAIN OR ??? PRO DUDLEY W/O FACETEC FORAMOT/DSKC 07/26 VRT SEG, CERVICAL N/A 10/30/2021 LAMINECTOMY, CX W/EXPLOR , W/O FACETECTOMY, 1 OR 2 SEGMENTS (WRVU 17.61) performed by Campos Puente MD at [facility] MAIN OR ??? PRO POSTERIOR SEGMENTAL INSTRUMENTATION 3-6 VRT SEG N/A 10/30/2021 POST SPINAL INSTRUMENTATION, 3-6 VERTEBRA, NON SEGMENTAL (WRVU 12.56) performed by Campos Puente MD at [facility] MAIN OR ??? PRO UPPER GI ENDOSCOPY, BIOPSY N/A 12/03/2015 EGD WITH BIOPSY performed by Ken Sanders MD at [facility] ENDOSCOPY ??? PRO UPPER GI ENDOSCOPY, BIOPSY N/A 09/19/2018 UPPER GASTROINTESTINAL ENDOSCOPY,WITH BIOPSY SINGLE OR MULTIPLE (WRVU 2.49) performed by Tyron Mercado MD at [facility] ENDOSCOPY ??? TONSILLECTOMY ??? UPPER GI ENDOSCOPY, EXAM 12/04/2010 UPPER GI ENDOSCOPY performed by DEE WRIGHT at [facility] ENDOSCOPY Family History Problem (# of [...] canal normal. Nose: Nose normal. Mouth/Throat: Lips: [place]. Mouth: Mucous membranes are moist. Pharynx: Oropharynx [...] COLONOSCOPY PROCEDURE Depression/PTSD managed by psychiatry at [facility]. Encouraged her to bring med list from [...] 25 OH 54 21 - 100 ng/mL [facility] Vit D Interp Sufficient [facility] Blood 03/31/2022 9:29 AM EDT 03/31/2022 5:10 PM EDT Narrative Resulting Agency Comment Spec In Lab Hoang Castellanos APRN CHEMISTRY ORDERABLES [facility] [place] [address] * (ABNORMAL) Hemoglobin A1c (03/31/2022 9:29 AM EDT) Hemoglobin A1c 6.0(H) 4.3 - 5.6 % [facility] Estimated Average Glucose 126 mg/dL [facility] Blood 03/31/2022 9:29 AM EDT 03/31/2022 11:41 AM EDT Narrative Resulting Agency Comment Spec In Lab Hoang Castellanos APRN CHEMISTRY ORDERABLES Performing Organization Address City/[facility]/ZIP Co de Phone Number [facility] [address] [place] [address] * Ear wax removal (03/23/2022) Narrative Heena [...] colon documented in this encounter Care Teams Hitch Technician Relationship Specialty Start Date End Date Hoang Castellanos APRN [address] [place] [address] PCP - General Family Medicine 03/12/20 documented as of this encounter
--- OUTSIDE RECORDS SUMMARY | 2024-08-01 18:29 | XMS_ITS | Encounter Summary ---
Author Organization [facility] Address [facility] [place] [address] Care Team Providers Care Lei Maker Name Role Phone Hoang Castellanos APRN Primary Care Provider Encounter Details Date Type Department Care Team (Late st Contact Info) Description 03/31/2022 1:00 PM EDT Home Care Visit [facility] for Care [address] [place] [phone] Kmiberly Austin, PIPE BUFFER LT CAMPAIGN FUNDRAISER HOME VISIT Social History Tobacco Use Types [...] Care Plan Visit Details Visit Type -LTC CAMPAIGN FUNDRAISER Home Vis it Discipline -Home Health Aide Problems Problem Description Start Date Status Goals Interve ntions A Required Screenings Disciplines: [facility] 03/25/2022 Active 1 goal linked to scheduled/documente d intervention 1 goal intervention scheduled/documente d in this visit Other Disciplines: [facility] 03/25/2022 Active 1 goal linked to scheduled/documente d intervention 1 goal intervention scheduled/documente d in this visit House Keeping Disciplines: [facility] 03/25/2022 Active 1 goal linked to scheduled/documente d intervention 9 goal interventions scheduled/documente d in this visit Personal Care Disciplines: [facility] 03/25/2022 Active 1 goal linked to [...] Completed documented in this encounter Care Teams Lei Maker Relationship Specialty Start Date End Date Hoang Castellanos, PADDOCK JUDGE [address] [place] [address] PCP - General Family Medicine 03/12/20 documented as of this encounter
--- OUTSIDE RECORDS SUMMARY | 2024-08-01 18:29 | XMS_ITS | Encounter Summary ---
Author Organization [facility] Address [facility] [place] [address] Care Team Providers Care Wire Straightener Name Role Phone Hoang Castellanos APRN Primary Care Provider Encounter Details Date Type Department Care Team (Late st Contact Info) Description 04/23/2022 11:00 AM EDT Home Care Visit [facility] [address] [place] [phone] Kimberly Austin, COMMAND POST CRAFTSMAN LT SECURITY GUARD SUPERVISOR HOME VISIT Social History Tobacco Use [...] Care Plan Visit Details Visit Type -LTC SECURITY GUARD SUPERVISOR Home Vis it Discipline -Home Health Aide Problems Problem Description Start Date Status Goals Interve ntions A Required Screenings Disciplines: [facility] 03/25/2022 Active 1 goal linked to scheduled/documente d intervention 1 goal intervention scheduled/documente d in this visit Other Disciplines: [facility] 03/25/2022 Active 1 goal linked to scheduled/documente d intervention 1 goal intervention scheduled/documente d in this visit House Keeping Disciplines: [facility] 03/25/2022 Active 1 goal linked to scheduled/documente d intervention 9 goal interventions scheduled/documente d in this visit Personal Care Disciplines: [facility] 03/25/2022 Active 1 goal linked [...] refused documented in this encounter Care Teams Wire Straightener Relationship Specialty Start Date End Date Hoang Castellanos, DIESEL ENGINE FITTER [address] [place] [address] PCP - General Family Medicine 03/12/20 documented as of this encounter
--- OUTSIDE RECORDS SUMMARY | 2024-08-01 18:29 | XMS_ITS | Encounter Summary ---
Author Organization [facility] Address [facility] [place] [address] Care Team Providers Care Web Development Manager Name Role Phone Hoang Castellanos APRN Primary Care Provider Encounter Details Date Type Department Care Team (Late st Contact Info) Description 04/22/2022 12:00 PM EDT Home Care Visit [facility] [address] [place] [phone] Kimberly Austin, FLIGHT FOLLOWER LT HOT BLASTER HOME VISIT Social History Tobacco Use Types [...] Care Plan Visit Details Visit Type -LTC HOT BLASTER Home Vis it Discipline -Home Health Aide Problems Problem Description Start Date Status Goals Interve ntions A Required Screenings Disciplines: [facility] 03/25/2022 Active 1 goal linked to scheduled/documente d intervention 1 goal intervention scheduled/documente d in this visit Other Disciplines: [facility] 03/25/2022 Active 1 goal linked to scheduled/documente d intervention 1 goal intervention scheduled/documente d in this visit House Keeping Disciplines: [facility] 03/25/2022 Active 1 goal linked to scheduled/documente d intervention 9 goal interventions scheduled/documente d in this visit Personal Care Disciplines: [facility] 03/25/2022 Active 1 goal linked [...] refused documented in this encounter Care Teams Web Development Manager Relationship Specialty Start Date End Date Hoang Castellanos, SUPERVISOR MARBLE [address] [place] [address] PCP - General Family Medicine 03/12/20 documented as of this encounter
--- OUTSIDE RECORDS SUMMARY | 2024-08-01 18:30 | XMS_ITS | Encounter Summary ---
Author Organization [facility] Address [facility] [place] [address] Care Team Providers Care Vocational Education Teacher Name Role Phone Hoang Castellanos APRN Primary Care Provider [phone] Encounter Details Date Type Department Care Team (Late st Contact Info) Description 12/30/2021 10:00 AM EDT Home Care Visit [facility] Home Health [address] [place] [phone] Samira Gasca LNA AIDEdison HOME VISIT [...] Status Goals Interve ntions Personal Care Disciplines: INSURANCE COUNSEL Aide to assist patient with personal cares as directed. 11/26/2021 Active 1 goal linked to scheduled/documen leela intervention 6 goal interventions scheduled/document ed in this visit Activity Disciplines: INSURANCE COUNSEL Aide to assist patient activity tasks as [...] ordered Scheduled with variance N/A Transfers Description: INSURANCE COUNSEL assist with transfers using Tub chair with extension Problem:Activity Goal:Patient activity needs will be completed by aide as ordered Completed Assist with Ambulation Description: INSURANCE COUNSEL assist with ambulation using walker or wheelchair Problem:Activity Goal:Patient activity needs will be completed by aide as ordered Completed Assist Repositioning Description: Assist with repositioning patient. Problem:Activity Goal:Patient activity needs will be completed by aide as ordered Scheduled with variance N/A documented in this encounter Care Teams Vocational Education Teacher Relationship Specialty Start Date End Date Hoang Castellanos, SCRUM PRODUCT OWNER [address] [place] [address] PCP - General Family Medicine 03/12/20 documented as of this encounter
--- OUTSIDE RECORDS SUMMARY | 2024-08-01 18:30 | XMS_ITS | Encounter Summary ---
Author Organization [facility] Address [facility] [place] [address] Care Team Providers Care Business Agent Name Role Phone Hoang Castellanos APRN Primary Care Provider Encounter Details Date Type Department Care Team (Late st Contact Info) Description 01/21/2022 Telephone [place] [address] Freddy Dolan PA [facility] [place] [address] Social History Tobacco Use Types Packs/Day Years [...] DPS for 05/20 appts Sent pt a [facility] message with appt details. Jeannie Rico - 01/21/22 Freddy Dolan PA Sent: Carlota January 21, 2022 ??9:40 AM To: P [facility] Neurosurgery [place] ?? Follow-up and Dispositions Check-out Note: FU 4 months w/ XR c-spine documented in this encounter Plan of Treatment Not on file documented as of this encounter Visit Diagnoses Not on filedocumented in this encounter Care Teams Business Agent Relationship Specialty Start Date End Date Hoang Castellanos APRN [address] [place] [address] PCP - General Family Medicine 03/12/20 documented as of this encounter
--- OUTSIDE RECORDS SUMMARY | 2024-08-01 18:30 | XMS_ITS | Encounter Summary ---
Author Organization [facility] Address [facility] [place] [address] Care Team Providers Care Inspector Barrel Name Role Phone Hoang Castellanos APRN Primary Care Provider [phone] Reason for Referral * [facility] [place] Neck Whipper Care (Routine) - Closed Specialty Diagnoses / Procedures Referred By Contdavide t Referred To Contact Home Health Services Diagnoses Age-related physical debility Visiting Nurse, [facility] [address] [address] [facility] [address] [place] [phone] Referral ID Status Reason Start Date Expiration Date V isits Requested Visits Authorized [id number] Closed Consult, Test & Treat 03/03/2022 03/03/[phone] Encounter Details Date Type Department Care Team (Late st Contact Info) Description 03/03/2022 Transcribe Orders eD Incoming Referrals [phone] Visiting [facility], [facility] [address] [address] Age-related physical debility Social History Tobacco Use [...] Diagnoses Orde r Schedule Amb Referral to [facility] Outpatient Referral Routine Age-related physical debility Ordered: 03/03/2022 documented as of this encounter Visit Diagnoses Diagnosis Age-related physical debility Senility without mention of psychosis documented in this encounter Care Teams Inspector Barrel Relationship Specialty Start Date End Date Hoang Castellanos, FARM OPERATIONS MANAGER [address] [place] [address] PCP - General Family Medicine 03/12/20 documented as of this encounter
--- OUTSIDE RECORDS SUMMARY | 2024-08-01 18:30 | XMS_ITS | Encounter Summary ---
Author Organization [facility] Address [facility] [place] [address] Care Team Providers Care Journeyman Electrician Pv Installer Name Role Phone Hoang Castellanos APRN Primary Care Provider Encounter Details Date Type Department Care Team (Late st Contact Info) Description 01/14/2022 Orders Only Primary Care at [facility] [address] [facility] [place] [address] Hoang Castellanos APRN [address] [place] [address] Dermal mycosis Social History Tobacco Use Types [...] unspecified documented in this encounter Care Teams Journeyman Electrician Pv Installer Relationship Specialty Start Date End Date Hoang Castellanos APRN [address] [place] [address] PCP - General Family Medicine 03/12/20 documented as of this encounter
--- OUTSIDE RECORDS SUMMARY | 2024-08-01 18:30 | XMS_ITS | Encounter Summary ---
Author Organization [facility] Address [facility] [place] [address] Care Team Providers Care Instructor Pilot Name Role Phone Hoang Castellanos APRN Primary Care Provider Encounter Details Date Type Department Care Team (Late st Contact Info) Description 12/24/2021 12:30 PM EDT Home Care Visit [facility] [address] [place] [phone] Raj Nowak, PT PT HOME VISIT [...] training documented in this encounter Care Teams Instructor Pilot Relationship Specialty Start Date End Date Hoang Castellanos, SAM [address] [place] [address] PCP - General Family Medicine 03/12/20 documented as of this encounter
--- OUTSIDE RECORDS SUMMARY | 2024-08-01 18:30 | XMS_ITS | Encounter Summary ---
Author Organization [facility] Address [facility] [place] [address] Care Team Providers Care Set Up And Charger Name Role Phone Hoang Castellanos APRN Primary Care Provider Reason for Referral * Physical Therapy (Routine) - Closed Specialty Diagnoses / Procedures Referred By Vanita t Referred To Contact Physical Therapy Diagnoses Cervical spinal stenosis Hoang Castellanos APRN [address] [place] [address] Physical Therapy, [address] [address] Referral ID Status Reason Start Date Expiration Date V isits Requested Visits Authorized [id number] Closed Evaluate and Treat 01/22/2022 07/21/2022 12 12 Encounter Details Date Type Department Care Team (Late st Contact Info) Description 01/22/2022 Orders Only Primary [facility] at [facility] [address] [place] [phone] Hoang Castellanos APRN [address] [place] [address] Cervical spinal stenosis Social History Tobacco Use [...] region documented in this encounter Care Teams Set Up And Charger Relationship Specialty Start Date End Date Hoang Castellanos, DOUBLE BASS PLAYER [address] [place] [address] PCP - General Family Medicine 03/12/20 documented as of this encounter
--- OUTSIDE RECORDS SUMMARY | 2024-08-01 18:30 | XMS_ITS | Encounter Summary ---
Author Organization [facility] Address [facility] [place] [address] Care Team Providers Care Database Manager Name Role Phone Hoang Castellanos APRN Primary Care Provider Encounter Details Date Type Department Care Team (Late st Contact Info) Description 12/18/2021 10:00 AM EDT Home Care Visit [facility] [address] [place] [phone] Renetta Ta, OT OT HOME VISIT [...] MIN A FOR DRESSING AND USE OF COIL WINDING MACHINES SET UP MECHANIC FOR UNDERWEAR. HER IS BACK AT THE HOSPITAL AND MADE COMMENTS TO THIS ESE TEACHER THAT SHE IS WORRIED ABOUT HER SAFETY BEING HOME ALONE AND COOKING.FABIANA DUDLEY, FROM [facility] PCP OFFICE, CALLED DURING OT VISIT AND [...] MIN A FOR DRESSING AND USE OF COIL WINDING MACHINES SET UP MECHANIC FOR UNDERWEAR. HER IS BACK AT THE HOSPITAL AND MADE COMMENTS TO THIS ESE TEACHER THAT SHE IS WORRIED ABOUT HER SAFETY [...] living documented in this encounter Care Teams Database Manager Relationship Specialty Start Date End Date Hoang Castellanos, ACCOUNT AUDITOR [address] [place] [address] PCP - General Family Medicine 03/12/20 documented as of this encounter
--- OUTSIDE RECORDS SUMMARY | 2024-08-01 18:30 | XMS_ITS | Encounter Summary ---
Author Organization [facility] Address [facility] [place] [address] Care Team Providers Care Clay Products Machine Operator Name Role Phone Hoang Castellanos APRN Primary Care Provider [phone] Encounter Details Date Type Department Care Team (Latest Contact Info) Description 01/19/2022 9:00 AM EDT Home Care Visit [facility] [address] [place] [phone] Raj Nowak, PT PT DISCIPLINE DISCHARGE [...] training documented in this encounter Care Teams Clay Products Machine Operator Relationship Specialty Start Date End Date Hoang Castellanos APRN [address] [place] [place] [address] PCP - General Family Medicine 03/12/20 documented as of this encounter
--- OUTSIDE RECORDS SUMMARY | 2024-08-01 18:30 | XMS_ITS | Encounter Summary ---
Author Organization [facility] Address [facility] [place] [address] Care Team Providers Care Road Manager Name Role Phone Hoang Castellanos APRN Primary Care Provider [phone] Encounter Details Date Type Department Care Team (Late st Contact Info) Description 12/29/2021 12:00 PM EDT Home Care Visit [facility] [address] [place] [phone] Raj Nowak, PT PT REASSESSMENT Social [...] Miscellaneous Notes * Home Health - Raj Nowak, PT - 12/29/2021 12:25 PM EDT [...] training documented in this encounter Care Teams Road Manager Relationship Specialty Start Date End Date Hoang Castellanos, PANCAKE PROFESSIONAL [address] [place] [address] PCP - General Family Medicine 03/12/20 documented as of this encounter
--- OUTSIDE RECORDS SUMMARY | 2024-08-01 18:30 | XMS_ITS | Encounter Summary ---
[place] [address] Care Team Providers Care Steel Pourer Name Role Phone Hoang Castellanos APRN Primary Care Provider Encounter Details Date Type Department Care Team (Late st Contact Info) Description 01/06/2022 Orders [place] [address] Tegan Garcia RN Cervical spinal stenosis Social [...] who have questions please contact the health health care aide that requested your imaging first. ? Narrative 01/21/2022 11:34 AM EDT EXAMINATION: XR [...] cervical lateral mass screws and rods at [id number] for subtle differences in projection. No hardware [...] patients who have questions please contactthe health health care aide that requested your imaging first. Campos Puente MD IMG DX ORDERABLES documented in this encounter Visit Diagnoses Diagnosis Cervical spinal stenosis Spinal stenosis in cervical region Cervical spinal stenosis Spinal stenosis in cervical region documented in this encounter Care Teams Steel Pourer Relationship Specialty Start Date End Date Hoang Castellanos, TRUCK DRIVER FLATBED [address] [place] [address] PCP - General Family Medicine 03/12/20 documented as of this encounter
--- OUTSIDE RECORDS SUMMARY | 2024-08-01 18:30 | XMS_ITS | Encounter Summary ---
Author Organization [facility] Address [facility] [place] [address] Care Team Providers Care Therapeutic Massage Technician Name Role Phone Hoang Castellanos APRN Primary Care Provider Encounter Details Date Type Department Care Team (Late st Contact Info) Description 01/12/2022 Home Care Visit [facility] Home Health [address] [place] [phone] Marlene Carolina, RN TELEPHONE ENCOUNTER Social [...] slept in a chcf (including now)? No 12/01/2021 Sex and Gender Information Value Date Recorded Sex Assigned at Not on file Gender Identity Not on file Sexual Orientation Not on file documented as of this encounter Plan of Treatment Not on file documented as of this encounter Visit Diagnoses Not on filedocumented in this encounter Care Teams Therapeutic Massage Technician Relationship Specialty Start Date End Date Hoang Castellanos APRN [address] [place] [address] PCP - General Family Medicine 03/12/20 documented as of this encounter
--- OUTSIDE RECORDS SUMMARY | 2024-08-01 18:30 | XMS_ITS | Encounter Summary ---
Author Organization [facility] [place] [address] Care Team Providers Care Director Of Early Childhood Education Name Role Phone Hoang Castellanos APRN Primary Care Provider [phone] Reason for Referral * Physical Therapy (Routine) - Closed Specialty Diagnoses / Procedures Referred By Contac t Referred To Contact Diagnoses Cervical spinal stenosis Freddy Dolan PA [facility] [place] [address] Physical Therapy, [address] [address] Referral ID Status Reason Start Date Expiration Date V isits Requested Visits Authorized [id number] Closed Evaluate and Treat 01/21/2022 07/20/2022 12 12 Encounter Details Date Type Department Care Team (Late st Contact Info) Description 01/21/2022 9:00 AM EDT Office [place] [address] Freddy Dolan PA [facility] [place] [address] Cervical spinal stenosis; Cervicalgia Social History Tobacco [...] R compared to the L diffusely R paint maker is 4/5 and R HF is 4/5 [...] repeat x-rays Freddy Dolan PA-C, MS Physician Director Of Real Estate Section of Neurosurgery [address] [address] documented in this encounter Plan of Treatment Scheduled Referrals Name Type Priority Associated Diagnoses Orde r Schedule Referral to Physical Therapy Outpatient Referral Routine Cervical spinal stenosis Ordered: 01/21/2022 documented as of this encounter Visit Diagnoses Diagnosis Cervical spinal stenosis Spinal stenosis in cervical region Cervicalgia documented in this encounter Care Teams Director Of Early Childhood Education Relationship Specialty Start Date End Date Hoang Castellanos, MANAGER STEEL [address] [place] [address] PCP - General Family Medicine 03/12/20 documented as of this encounter
--- OUTSIDE RECORDS SUMMARY | 2024-08-01 18:30 | XMS_ITS | Encounter Summary ---
Author Organization [facility] Address [facility] [address] Care Team Providers Care Software Application Tester Name Role Phone Hoang Castellanos APRN Primary Care Provider Encounter Details Date Type Department Care Team (Late st Contact Info) Description 01/13/2022 9:00 AM EDT Home Care Visit [facility] [address] [place] [phone] Fara Joel RN SN HOME VISIT [...] slept in a long-term (including now)? No 12/01/2021 Sex and Gender [...] on filedocumented in this encounter Care Teams Software Application Tester Relationship Specialty Start Date End Date Hoang Castellanos, SUPERVISOR CHEMICAL [address] [place] [address] PCP - General Family Medicine 03/12/20 documented as of this encounter
--- OUTSIDE RECORDS SUMMARY | 2024-08-01 18:30 | XMS_ITS | Encounter Summary ---
Author Organization [place] [address] Care Team Providers Care Reconstructive Dentist Name Role Phone Hoang Castellanos APRN Primary Care Provider Encounter Details Date Type Department Care Team (Late st Contact Info) Description 01/08/2022 Orders Only [place] [address] Priya Charles, REGRINDER [facility] [place] [address] S/P gastric bypass; Disorder of iron metabolism; [...] Wb (NOVEMBER) 150 70 - 180 nmol/L [facility] Comment: ADDITIONAL INFORMATION This test was developed and its performance characteristics determined by [facility] in a manner consistent with CLIA requirements. This test has not been cleared or approved by the U.S. Food and Drug Administration. Test Performed by: [facility] - [address] [address] Bench Lathe Operator: Skinny Reyes M.D. Ph.D.; CLIA# [id number] Blood 03/31/2022 9:29 AM EDT 03/31/2022 4:59 PM EDT Narrative Resulting Agency Comment Spec In Lab Priya Charles APRN LAB [facility] [address] [place] [address] * Vitamin B12 (03/31/2022 9:29 AM EDT) Vitamin B12 690 232 - 1,245 pg/mL [facility] Blood 03/31/2022 9:29 AM EDT 03/31/2022 5:10 PM EDT Narrative Resulting Agency Comment Spec In Lab Priya Charles APRN CHEMISTRY ORDERA BLES Performing Organization Address City/[facility] Co de Phone Number [facility] [place] [address] * PTH (03/31/2022 9:29 AM EDT) Parathyroid Hormone 52 15 - 65 pg/mL [facility] Blood 03/31/2022 9:29 AM EDT 03/31/2022 4:41 PM EDT Narrative Resulting Agency Comment Spec In Lab Priya Charles APRN CHEMISTRY ORDERA BLES Performing Organization Address [facility] Co de Phone Number [facility] [place] [address] * (ABNORMAL) Iron and TIBC (03/31/2022 9:29 AM EDT) Iron 40 30 - 150 mcg/dL [facility] TIBC 381 250 - 450 mcg/dL [facility] Iron Saturation 10(L) 20 - 50 % [facility] Blood 03/31/2022 9:29 AM EDT 03/31/2022 11:41 AM EDT Narrative Resulting Agency Comment Spec In Lab Priya Charles REGRINDER CHEMISTRY [facility] [address] [place] [address] * (ABNORMAL) Hemogram (03/31/2022 9:29 AM EDT) [...] Lab Priya Charles APRN HEMATOLOGY ORDER [facility] [address] [place] [address] * Folate, serum (03/31/2022 9:29 AM EDT) Folate 7.5 4.8 - 24.2 ng/mL [facility] Blood 03/31/2022 9:29 AM EDT 03/31/2022 5:10 PM EDT Narrative Resulting Agency Comment Spec In Lab Priya Charles APRN CHEMISTRY ORDERA BLES Performing Organization Address City/[facility]/ZIP Co de Phone Number [facility] [place] [address] * (ABNORMAL) Ferritin (03/31/2022 9:29 AM EDT) [facility] Signature Ferritin 17(L) 30 - 400 ng/mL [facility] Comment: Pediatric reference ranges not verified at [facility], interpret with caution. Reference ranges for females greater than 50 years of age approach values for men, i.e., 30-400 ng/mL. 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
--- OUTSIDE RECORDS SUMMARY | 2024-08-01 18:30 | XMS_ITS | Encounter Summary ---
Author Organization [facility] Address [facility] [place] [address] Care Team Providers Care Job Hand Name Role Phone Hoang Castellanos APRN Primary Care Provider Encounter Details Date Type Department Care Team (Late st Contact Info) Description 01/06/2022 11:00 AM EDT Home Care Visit [facility] [address] [place] [phone] Meena Greenwood LPN SN HOME VISIT [...] Details Visit Type -SN Home Visit Discipline -Detention Problems Problem Description Start Date Status Goals [...] in this visit Pain/Comfort Deficit Disciplines: SN, RELISH MAKER Pain/comfort deficit related to back and shoulders [...] including precautions to avoid smoking, static electricity, harbor pilot lights on gas stoves and water [...] patient. documented in this encounter Care Teams Job Hand Relationship Specialty Start Date End Date Hoang Castellanos, OIL WELL SERVICES SUPERINTENDENT [address] [place] [address] PCP - General Family Medicine 03/12/20 documented as of this encounter
--- OUTSIDE RECORDS SUMMARY | 2024-08-01 18:30 | XMS_ITS | Encounter Summary ---
Author Organization [facility] Address [facility] [place] [address] Care Team Providers Care Correctional Facility Psychiatrist Name Role Phone Hoang Castellanos APRN Primary Care Provider Reason for Visit * Reason Onset Date Comments Social Service Coordination 12/18/2021 Encounter Details Date Type Department Care Team (Late st Contact Info) Description 12/18/2021 Telephone Primary Care at [facility] [address] [place] [phone] Jeannie Luciano, RN Social Service Coordination Social [...] with her today! * Telephone Encounter - Jeanine Luciano RN - 12/18/2021 1:32 PM EDT [...] visiting but will be ret'd home to [place] tomorrow. No release on file to speak with rae; placed call to pt. Jeannie said ERMA Jackson from [facility] was there at the time. Renetta did [...] the ceiling so she has to walk custodial into the room before she can turn [...] see if Sanjuana would be willing to slate picker some easy to prepare frozen foods that are also healthy options. Jeannie does get Meals [employer] Wheels on weekdays and they also have frozen meal options. Jeannie will call them to arrange delivery. Jeannie has [facility] PT, OT, STRAIGHTEDGE MAN and SN who will visit her regularly. HCRS Dental Nurse, Angela was scheduled to visit Jeannie today [...] a ramírez to her apartment for emergencies. Jeannie is aware she can call [facility] 14/02 with any questions or concerns. She knows she can also call the clinic at any time; if it's after hours, the provider production control technologist will be paged. Jeannie or Rae will call 911 if needed. Jeannie did give me verbal permission to speak with her sister about our conversation and the plan put in place. documented in this encounter Plan of Treatment Not on file documented as of this encounter Visit Diagnoses Not on filedocumented in this encounter Care Teams Correctional Facility Psychiatrist Relationship Specialty Start Date End Date Hoang Castellanos, TITLE LAWYER [address] [place] [address] PCP - General Family Medicine 03/12/20 documented as of this encounter
--- OUTSIDE RECORDS SUMMARY | 2024-08-01 18:30 | XMS_ITS | Encounter Summary ---
Author Organization [facility] Address [facility] [place] [address] Care Team Providers Care Area Director Of Home Health Sales Name Role Phone Hoang Castellanos APRN Primary Care Provider [phone] Encounter Details Date Type Department Care Team (Latest Contact Info) Description 01/18/2022 12:30 PM EDT Home Care Visit [facility] [address] [place] [phone] Renetta Ta, OT OT DISCIPLINE DISCHARGE [...] TO OT DC VIST TODAY WITH HER THERMODYNAMICS TEACHER CAREGIVER, BRITTA, AND HER SPOUSE. SHE IS [...] ADL AND SHE WILL CONTINUE TO HAVE THERMODYNAMICS TEACHER CARE SUPPORTS NEEDED. PT IS AGREEABLE WITH OT POC. * Home Health - Renetta Ta OT - 01/18/2022 1:20 PM EDT PT PRESENTS TO OT DC VIST TODAY WITH HER GROUP HOME CAREGIVER, BRITTA, AND HER SPOUSE. SHE IS [...] ADL AND SHE WILL CONTINUE TO HAVE GROUP HOME CARE SUPPORTS NEEDED. PT IS AGREEABLE WITH [...] education documented in this encounter Care Teams Area Director Of Home Health Sales Relationship Specialty Start Date End Date Hoang Castellanos APRN [address] FAMILY [facility] [place] [address] PCP - General Family Medicine 03/12/20 documented as of this encounter
--- OUTSIDE RECORDS SUMMARY | 2024-08-01 18:30 | XMS_ITS | Encounter Summary ---
Author Organization [facility] Address [facility] [place] [address] Care Team Providers Care Ore Crushing Dust Collector Name Role Phone Hoang Castellanos APRN Primary Care Provider Encounter Details Date Type Department Care Team (Late st Contact Info) Description 01/11/2022 3:00 PM EDT Home Care Visit [facility] [address] [place] [phone] Raj Nowak, PT PT HOME VISIT [...] training documented in this encounter Care Teams Ore Crushing Dust Collector Relationship Specialty Start Date End Date Hoang Castellanos APRN [address] [place] [address] PCP - General Family Medicine 03/12/20 documented as of this encounter
--- OUTSIDE RECORDS SUMMARY | 2024-08-01 18:30 | XMS_ITS | Encounter Summary ---
Author Organization [facility] [place] [address] Care Team Providers Care Sand Conditioner Name Role Phone Hoang Castellanos APRN Primary Care Provider Reason for Visit * Reason Comments Medication Refill Encounter Details Date Type Department Care Team (Late st Contact Info) Description 02/15/2022 Refill Primary Care at [facility] [address] [facility] [place] [phone] Hoang Castellanos APRN [address] [place] [address] B12 deficiency Social History Tobacco Use Types [...] Notes * Telephone Encounter - Elayne Gomez, [facility] - 02/15/2022 1:45 PM EDT Requested Prescriptions [...] deficiencies documented in this encounter Care Teams Sand Conditioner Relationship Specialty Start Date End Date Hoang Castellanos, SUPPLEMENTAL NURSE [address] [place] [address] PCP - General Family Medicine 03/12/20 documented as of this encounter
--- OUTSIDE RECORDS SUMMARY | 2024-08-01 18:30 | XMS_ITS | Encounter Summary ---
Author Organization [facility] Address [facility] [address] Care Team Providers Care Plan Coordinator Name Role Phone Hoang Castellanos APRN Primary Care Provider Encounter Details Date Type Department Care Team (Latest Contact Info) Description 01/21/2022 7:52 AM EDT - 01/21/2022 11:59 PM EDT Hospital Encounter XRay at [facility] [address] [facility] [address] [place] [address] Cervical spinal stenosis Discharge Disposition: Home Social [...] 1 Dose by mouth 2 times daily. isosorbide mononitrate CR (Imdur) 30 mg Tablet Sustained Release 24 hrIndications:Coronary artery disease involving [place] coronary artery of [place] heart without angina pectoris Take 1 tablet by mouth daily. 28 tablet 11 01/18/2022 Miconazole PowderIndications:Derm al mycosis 1 Application by [facility].(Non-Drug; Combo Route) route 2 times daily. 100 g 3 01/14/2022 nitroGLYcerin (Nitrostat) 0.4 mg Tablet, SublingualIndications: Coronary artery disease involving [place] coronary artery of [place] heart without angina pectoris Place 1 tablet [...] Take 0.5 mg by mouth nightly. 05/20/2021 tiotropium bromide (Spiriva Respimat) 2.5 mcg/actuation MistIndications:Asthma with acute exacerbation, unspecified asthma severity, unspecified whether persistent Inhale 2 puffs into the lungs nightly. 12 g 3 03/23/2021 03/19/2022 Vitamin B-12 1,000 mcg TabletIndications:B12 deficiency TAKE ONE (1) TABLET BY MOUTH ONCE WEEKLY (PM) 4 tablet 11 03/17/2021 02/15/2022 sertraline (ZOLOFT) 100 mg Tablet Take 2 tablets by mouth 2 times daily. 01/27/2020 04/14/2023 Vraylar 1.5 mg Capsule 01/18/202203/23 fluticasone propion-salmeteroL (ADVAIR) 500-50 mcg/dose Disk with Device Inhale 1 puff into the lungs every 12 hours. 04/12/2022 nicotine (Nicoderm CQ) 14 mg/24 hr Patch 24 hrIndications:Cervical jin Change 1 patch on the skin daily. 28 patch 3 12/01/2021 03/19/2022 prazosin (Minipress) 2 mg Capsule Take 3 [...] EVERY DAY 28 tablet 11 06/09/2021 05/07/2022 documented as of this encounter Plan of [...] questions please contact the health day care aide that requested your imaging first. [...] cervical lateral mass screws and rods at [id number] for subtle differences in projection. No hardware [...] have questions please contactthe health day care aide that requested your imaging first. Campos Puente MD IMG DX ORDERABLES documented in this encounter Visit Diagnoses Diagnosis Cervical spinal stenosis Spinal stenosis in cervical region documented in this encounter Care Teams Plan Coordinator Relationship Specialty Start Date End Date Hoang Castellanos, ELEMENTARY SCHOOL SCIENCE TEACHER [address] [place] [address] PCP - General Family Medicine 03/12/20 documented as of this encounter
--- OUTSIDE RECORDS SUMMARY | 2024-08-01 18:30 | XMS_ITS | Encounter Summary ---
Author Organization [facility] Address [facility] [place] [address] Care Team Providers Care Motorbike Courier Name Role Phone Hoang Castellanos APRN Primary Care Provider Encounter Details Date Type Department Care Team (Late st Contact Info) Description 12/23/2021 1:30 PM EDT Home Care Visit [facility] [address] [place] [phone] Bárbara Morfin, RN SN HOME VISIT [...] Details Visit Type -SN Home Visit Discipline -Nursing Home Problems Problem Description Start Date Status Goals Interventions Learning/Teaching Needs - Inhalation Treatments Disciplines: SN, STRATEGIC MARKETING LEADER Lack of knowledge in how to administer [...] hours. senior solutions looking for a weekly office cleaner but needs a deep clean first. [...] number documented in this encounter Care Teams Motorbike Courier Relationship Specialty Start Date End Date Hoang Castellanos, TECHNICAL ASST [address] [place] [address] PCP - General Family Medicine 03/12/20 documented as of this encounter
--- OUTSIDE RECORDS SUMMARY | 2024-08-01 18:30 | XMS_ITS | Encounter Summary ---
Author Organization [facility] [place] [address] Care Team Providers Care Crib Pad Maker Name Role Phone Hoang Castellanos APRN Primary Care Provider Reason for Visit * Reason Comments Medication Refill Encounter Details Date Type Department Care Team (Late st Contact Info) Description 01/18/2022 Refill Primary Care at [facility] [address] [facility] [place] [phone] Hoang Castellanos APRN [address] [place] [address] Coronary artery disease involving [place] coronary artery of [place] heart without angina pectoris Social History Tobacco [...] Visit Diagnoses Diagnosis Coronary artery disease involving [place] coronary artery of [place] heart without angina pectoris documented in this encounter Care Teams Crib Pad Maker Relationship Specialty Start Date End Date Hoang Castellanos APRN [address] [place] [address] PCP - General Family Medicine 03/12/20 documented as of this encounter
--- OUTSIDE RECORDS SUMMARY | 2024-08-01 18:30 | XMS_ITS | Encounter Summary ---
Author Organization [facility] [place] [address] Care Team Providers Care Voice And Data Technician Name Role Phone Hoang Castellanos APRN Primary Care Provider [phone] Encounter Details Date Type Department Care Team (Late st Contact Info) Description 12/15/2021 Refill Primary Care at [facility] [address] [place] [phone] Yvonne Luciano RN Social History Tobacco Use [...] and adding a cough suppressant at nighttime ([id number] QHS) for about two weeks. Hopefully in [...] ED. Pt verbalized understanding. Note routed to computer applications engineer provider. documented in this encounter Plan of Treatment Not on file documented as of this encounter Visit Diagnoses Not on filedocumented in this encounter Care Teams Voice And Data Technician Relationship Specialty Start Date End Date Hoang Castellanos APRN [address] [place] [address] PCP - General Family Medicine 03/12/20 documented as of this encounter
--- OUTSIDE RECORDS SUMMARY | 2024-08-01 18:30 | XMS_ITS | Encounter Summary ---
Author Organization [facility] Address [facility] [place] [address] Care Team Providers Care Metal Mold Dresser Name Role Phone Hoang Castellanos APRN Primary Care Provider Encounter Details Date Type Department Care Team (Late st Contact Info) Description 01/12/2022 Home Care Visit [facility] Home Health [address] [place] [phone] Fara Joel RN TELEPHONE ENCOUNTER Social [...] on filedocumented in this encounter Care Teams Metal Mold Dresser Relationship Specialty Start Date End Date Hoang Castellanos, STARTING GATE DRIVER [address] [place] [address] PCP - General Family Medicine 03/12/20 documented as of this encounter
--- OUTSIDE RECORDS SUMMARY | 2024-08-01 18:30 | XMS_ITS | Encounter Summary ---
Author Organization [facility] Address [facility] [place] [place] [address] Care Team Providers Care Cable Splicer Assistant Name Role Phone Hoang Castellanos APRN Primary Care Provider [phone] Encounter Details Date Type Department Care Team (Late st Contact Info) Description 12/17/2021 9:00 AM EDT Home Care Visit [facility] [address] [place] [phone] Bárbara Morfin, RN SN HOME VISIT [...] medications that were not in home yet, ANTIQUE FURNITURE REPAIRER check in, Hygiene GI/ care, Pain mgmt documented in this encounter Plan of Treatment Not on file documented as of this encounter Visit Diagnoses Not on filedocumented in this encounter Home Health Visit - Care Plan Visit Details Visit Type -SN Home Visit Discipline -Senior Living Problems Problem Description Start Date Status Goals Interventions Learning/Teaching Needs - Inhalation Treatments Disciplines: SN, QUALITY ASSURANCE PRACTICE MANAGER Lack of knowledge in how to administer inhalant treatments and how to care for the equipment. 11/26/2021 Active 1 goal linked to scheduled/docume nted intervention 1 goal intervention scheduled/documen shabana in this visit Supervisory Visit Disciplines: DONALD BARRERA Supervision of the [facility]. 11/26/2021 Active 1 goal linked to scheduled/docume [...] including precautions to avoid smoking, static electricity, oversize load pilot escort lights on gas stoves and water heaters, [...] Visit Description: Perform supervisory visit of the ANTIQUE FURNITURE REPAIRER at minimum every 16 days. Perform supervisory visit of the PT Brooch Maker Novelty at minimum every 5th visit or every 30 days. Problem:Supervisory Visit Goal:Supervisory visit will be completed as ordered Completed Supervisory visit of ANTIQUE FURNITURE REPAIRER performed. See aide/supervisory visit documentation for assessment. [...] documented in this encounter Care Teams Cable Splicer Assistant Relationship Specialty Start Date End Date Hoang Castellanos APRN [address] [place] [address] PCP - General Family Medicine 03/12/20 documented as of this encounter
--- OUTSIDE RECORDS SUMMARY | 2024-08-01 18:30 | XMS_ITS | Encounter Summary ---
Author Organization [facility] Address [facility] [place] [address] Care Team Providers Care Environmental Health Technologist Name Role Phone Hoang Castellanos APRN Primary Care Provider Encounter Details Date Type Department Care Team (Late st Contact Info) Description 01/21/2022 2:00 PM EDT Home Care Visit [facility] [address] [place] [phone] Fara Joel RN SN OASIS DISCHARGE [...] on filedocumented in this encounter Care Teams Environmental Health Technologist Relationship Specialty Start Date End Date Hoang Castellanos APRN [address] [place] [address] PCP - General Family Medicine 03/12/20 documented as of this encounter
--- OUTSIDE RECORDS SUMMARY | 2024-08-01 18:30 | XMS_ITS | Encounter Summary ---
Author Organization [facility] Address [facility] [place] [address] Care Team Providers Care Assistant Farm Operations Manager Name Role Phone Hoang Castellanos APRN Primary Care Provider Reason for Referral * [facility] Correctional Officer Chief Care (Routine) - Closed Specialty Diagnoses / Procedures Referred By Contdavide t Referred To Contact Home Health Services Diagnoses Age-related physical debility R54 Visiting [facility], [facility] [address] [address] [facility] Choices For Care [address] [place] [phone] Referral ID Status Reason Start Date Expiration Date V isits Requested Visits Authorized [id number] Closed Consult, Test & Treat 02/08/2022 02/08/[phone] Encounter Details Date Type Department Care Team (Late st Contact Info) Description 02/08/2022 Transcribe Orders eD Incoming Referrals [phone] Visiting [facility], [facility] [address] [address] Social History Tobacco Use Types Packs/Day Years [...] Diagnoses Orde r Schedule Amb Referral to [facility] Correctional Officer Chief Care Outpatient Referral Routine Ordered: 02/08/2022 documented as of this encounter Visit Diagnoses Not on filedocumented in this encounter Care Teams Assistant Farm Operations Manager Relationship Specialty Start Date End Date Hoang Castellanos, FAMILY MEMBER CARETAKER [address] [place] [address] PCP - General Family Medicine 03/12/20 documented as of this encounter
--- OUTSIDE RECORDS SUMMARY | 2024-08-01 18:30 | XMS_ITS | Encounter Summary ---
Author Organization [facility] Address [facility] [address] Care Team Providers Care Battery Engineer Name Role Phone Hoang Castellanos APRN Primary Care Provider Encounter Details Date Type Department Care Team (Late st Contact Info) Description 12/17/2021 10:30 AM EDT Home Care Visit [facility] [address] [place] [phone] Raj Nowak, PT PT HOME VISIT [...] training documented in this encounter Care Teams Battery Engineer Relationship Specialty Start Date End Date Hoang Castellanos APRN [address] [place] [address] PCP - General Family Medicine 03/12/20 documented as of this encounter
--- OUTSIDE RECORDS SUMMARY | 2024-08-01 18:30 | XMS_ITS | Encounter Summary ---
Author Organization [facility] Address [facility] [place] [address] Care Team Providers Care Publishing Manager Name Role Phone Hoang Castellanos APRN Primary Care Provider [phone] Encounter Details Date Type Department Care Team (Late st Contact Info) Description 01/07/2022 1:30 PM EDT Home Care Visit [facility] [address] [place] [phone] Raj Nowak, PT PT HOME VISIT [...] patient/caregiver documented in this encounter Care Teams Publishing Manager Relationship Specialty Start Date End Date Hoang Castellanos, VERIFICATION ENGINEER [address] [place] [address] PCP - General Family Medicine 03/12/20 documented as of this encounter
--- OUTSIDE RECORDS SUMMARY | 2024-08-01 18:30 | XMS_ITS | Encounter Summary ---
Author Organization [facility] Address [facility] [place] [address] Care Team Providers Care Shop Director Name Role Phone Hoang Castellanos APRN Primary Care Provider Encounter Details Date Type Department Care Team (Late st Contact Info) Description 01/15/2022 9:00 AM EDT Home Care Visit [facility] [address] [place] [phone] Renetta Ta, OT OT HOME VISIT [...] education documented in this encounter Care Teams Shop Director Relationship Specialty Start Date End Date Hoang Castellanos, MANUSCRIPT READER [address] [place] [address] PCP - General Family Medicine 03/12/20 documented as of this encounter
--- OUTSIDE RECORDS SUMMARY | 2024-08-01 18:30 | XMS_ITS | Encounter Summary ---
Author Organization [facility] Address [facility] [place] [address] Care Team Providers Care Marking Machine Tender Name Role Phone Hoang Castellanos APRN Primary Care Provider Encounter Details Date Type Department Care Team (Late st Contact Info) Description 01/20/2022 10:00 AM EDT Home Care Visit [facility] [address] [place] [phone] Meena Greenwood LPN SN HOME VISIT [...] Details Visit Type -SN Home Visit Discipline -Alf Problems Problem Description Start Date Status Goals Interventions Learning/Teaching Needs - Inhalation Treatments Disciplines: DONALD BARRERA Lack of knowledge in how to administer inhalant treatments and how to care for the equipment. 11/26/2021 Resolved on 01/20/2022 1 goal linked to scheduled/docume nted intervention Supervisory Visit Disciplines: DONALD BARRERA Supervision of the PHOTOGRAPHIC PRINTER. 11/26/2021 Resolved on 01/20/2022 1 goal linked [...] Completed documented in this encounter Care Teams Marking Machine Tender Relationship Specialty Start Date End Date Hoang Castellanos, EXCHANGE OPERATOR [address] [place] [address] PCP - General Family Medicine 03/12/20 documented as of this encounter
--- OUTSIDE RECORDS SUMMARY | 2024-08-01 18:30 | XMS_ITS | Encounter Summary ---
Author Organization [facility] [place] [address] Care Team Providers Care Radial Drill Press Operator Name Role Phone Hoang Castellanos APRN Primary Care Provider Encounter Details Date Type Department Care Team (Latest Contact Info) Description 02/23/2022 Transcribe Orders Laboratory at [facility] [place] [phone] Sophie Mejia MD [address] [place] [id number] Encounter for long-term (current) use of other [...] Results * TSH (03/31/2022 9:29 AM EDT) Thyroid Stimulating Hormone 2.42 0.27 - 4.20 mcIU/mL [facility] Comment: Reference Interval (mcIU/mL): Females: ??First Trimester: 0.23-3.88 ??Second Trimester: 0.22-3.90 ??Third Trimester: 0.44-4.66 Blood 03/31/2022 9:29 AM EDT 03/31/2022 11:41 AM EDT Narrative Resulting Agency Comment Spec In Lab Sophie Mejia MD CHEMISTRY ORDERABLES [facility] [address] [place] [address] * Lipid Panel (Reflex Direct LDL) (03/31/2022 9:29 AM EDT) Cholesterol, Total 103 mg/dL [facility] Comment: Lower Risk: <200 mg/dL Average Risk: 200-239 mg/dL Higher Risk: >ao=948 mg/dL Triglyceride 111 mg/dL [facility] Comment: Average Risk/Lower Risk: <150 mg/dL Borderline High Risk: 150-199 mg/dL High Risk: 200-499 mg/dL Very High Risk: >fr=557 mg/dL HDL Cholesterol 47 mg/dL [facility] Comment: Males: ?? Higher Risk: <40 mg/dL Females: ?? Higher Risk: <50 mg/dL LDL Cholesterol 34 mg/dL [facility] Comment: Lowest Risk: <100 mg/dL Lower Risk: 100-129 mg/dL Borderline High Risk: 130-159 mg/dL High Risk: 160-189 mg/dL Very High Risk: >sr=830 mg/dL Cholesterol/HDL Ratio 2.2 ratio [facility] Lipid Interpretation See Note [facility] Comment: Lipid management should be guided by a patient? s ASCVD risk, goals and preferences. ACC/AHA Guidelines recommend high intensity statin if clinical ASCVD or LDL greater than or equal to 190 mg/dL. http://[email or web address] [email or web address]/JJW-IID-Rqflowbgx Adults aged 40-75 with LDL 70-189 mg/dL should have their 10 year ASCVD risk estimated with the ACC/AHA ASCVD risk profiler operator http://tools.acc.org/PUPSV-Irno-Kyluyfohp/ Statin should be discussed if risk greater [...] Sophie Mejia MD CHEMISTRY ORDERABLES [facility] [address] [place] [address] * (ABNORMAL) CMP w/fasting Glucose (03/31/2022 9:29 AM EDT) Glucose Fasting 99 65 - 99 mg/dL [facility] Comment: ?Fasting* Glucose Interpretive [...] of Diabetes Mellitus, Position Statement from the [place] [employer]. ??Diabetes Care, Volume 33, Supplement 1, Jul 2009 Blood Urea Nitrogen 18 8 - 18 mg/dL [facility] Creatinine 0.72 0.70 - 1.20 mg/dL [facility] Sodium 143 135 - 145 mmol/L [facility] Potassium 4.2 3.5 - 5.0 mmol/L [facility] Comment: Please note: ??Patients with WBC >100,000 may have falsely elevated Potassium levels. ??For accurate Potassium quantification in these patients send serum separator tube (gold top) for subsequent determinations. ??Contact the Clinical Chemistry Laboratory if there are any questions. Chloride 104 98 - 107 mmol/L [facility] Carbon Dioxide 28 22 - 31 mmol/L [facility] Anion Gap 11 5 - 15 mmol/L [facility] Calcium 9.7 8.5 - 10.5 mg/dL [facility] Protein, Total 6.9 6.1 - 8.0 g/dL [facility] Albumin 4.0 3.2 - 5.2 g/dL [facility] Aspartate Aminotransferase 11 0 - 30 unit/L [facility] Alanine Aminotransferase 10 0 - 30 unit/L [facility] Alkaline Phosphatase 134(H) 35 - 105 unit/L [facility] Bilirubin, Total 0.2 0.2 - 1.3 mg/dL [facility] Est Glomerular Filtration Rate 95 >=60 mL/min/1. 73 m?? [facility] Comment: This patient's estimated GFR was [...] MD CHEMISTRY ORDERABLES [facility] [address] [place] [address] documented in this encounter Visit Diagnoses Diagnosis Encounter for long-term (current) use of other medications Explosive personality disorder documented in this encounter Care Teams Radial Drill Press Operator Relationship Specialty Start Date End Date Hoang Castellanos, AGENCY TRAINER [address] [facility] [address] [place] [address] PCP - General Family Medicine 03/12/20 documented as of this encounter
--- OUTSIDE RECORDS SUMMARY | 2024-08-01 18:30 | XMS_ITS | Encounter Summary ---
Author Organization [facility] [place] [address] Care Team Providers Care Documentation Designer Name Role Phone Hoang Castellanos APRN Primary Care Provider Encounter Details Date Type Department Care Team (Late st Contact Info) Description 12/16/2021 Home Care Visit [facility] Home Health [address] [place] [phone] Meena Greenwood, HOUSEHOLD APPLIANCE MECHANIC CASE COMMUNICATION Social History Tobacco Use Types [...] on filedocumented in this encounter Care Teams Documentation Designer Relationship Specialty Start Date End Date Hoang Castellanos APRN [address] [place] [address] PCP - General Family Medicine 03/12/20 documented as of this encounter
--- OUTSIDE RECORDS SUMMARY | 2024-08-01 18:30 | XMS_ITS | Encounter Summary ---
Author Organization [facility] Address [facility] [place] [address] Care Team Providers Care Behavioral Health Assistant Name Role Phone Hoang Castellanos APRN Primary Care Provider [phone] Encounter Details Date Type Department Care Team (Late st Contact Info) Description 12/28/2021 9:30 AM EDT Home Care Visit [facility] [address] [place] [phone] Renetta Ta, OT OT HOME VISIT [...] leisure, documented in this encounter Care Teams Behavioral Health Assistant Relationship Specialty Start Date End Date Hoang Castellanos APRN [address] [place] [address] PCP - General Family Medicine 03/12/20 documented as of this encounter
--- OUTSIDE RECORDS SUMMARY | 2024-08-01 18:30 | XMS_ITS | Encounter Summary ---
Author Organization [facility] Address [facility] [place] [address] Care Team Providers Care Metal Bonder Name Role Phone Hoang Castellanos APRN Primary Care Provider [phone] Encounter Details Date Type Department Care Team (Late st Contact Info) Description 01/08/2022 9:30 AM EDT Home Care Visit [facility] [address] [place] [phone] Renetta Ta, OT OT HOME VISIT [...] education documented in this encounter Care Teams Metal Bonder Relationship Specialty Start Date End Date Hoang Castellanos, SAM [address] [place] [address] PCP - General Family Medicine 03/12/20 documented as of this encounter
--- OUTSIDE RECORDS SUMMARY | 2024-08-01 18:30 | XMS_ITS | Encounter Summary ---
Author Organization [facility] [place] [address] Care Team Providers Care Manager Auto Name Role Phone Hoang Castellanos APRN Primary Care Provider Reason for Visit * Reason Comments Medication Refill Encounter Details Date Type Department Care Team (Late st Contact Info) Description 03/18/2022 Refill Primary Care at [facility] [address] [facility] [place] [phone] Hoang Castellanos APRN [address] [place] [address] Cervicalgia; Asthma with acute exacerbation, unspecified asthma [...] persistent documented in this encounter Care Teams Manager Auto Relationship Specialty Start Date End Date Hoang Castellanos, GROUP LEADER WAFER POLISHING [address] [place] [address] PCP - General Family Medicine 03/12/20 documented as of this encounter
--- OUTSIDE RECORDS SUMMARY | 2024-08-01 18:31 | XMS_ITS | Encounter Summary ---
Author Organization [facility] [place] [address] Care Team Providers Care Liquid Hydrogen Plant Operator Name Role Phone Hoang Castellanos APRN Primary Care Provider Reason for Visit * Home Health Care (Routine) - Closed Specialty Diagnoses / Procedures Referred By Vanita t Referred To Contact Diagnoses Cervical spondylosis with myelopathy Adri Moe MD [address] [place] [address] [phone] Referral ID Status Reason Start Date Expiration Date V isits Requested Visits Authorized [id number] Closed Consult, Test & Treat 11/24/2021 11/24/[phone] Encounter Details Date Type Department Care Team (Latest Contact Info) Description 11/26/2021 9:30 AM EDT Home Care Visit [address] [phone] Bárbara Morfin RN SN OASIS [...] hospital bed referral from PCP Assess pill insurance application investigator usage as there are new medications in [...] for 1 month of visits Kimberly Majano [phone] from [facility] care budget: wheelchair Aminah Haro [phone] emergency contact documented in this encounter Plan of Treatment Scheduled Referrals Name Type Priority Associated Diagnoses Orde r Schedule Referral to Home Health Outpatient Referral Routine Cervical spondylosis with myelopathy Ordered: 11/24/2021 documented as of this encounter Visit Diagnoses Not on filedocumented in this encounter Care Teams Liquid Hydrogen Plant Operator Relationship Specialty Start Date End Date Hoang Castellanos APRN [address] [place] [address] PCP - General Family Medicine 03/12/20 documented as of this encounter
--- OUTSIDE RECORDS SUMMARY | 2024-08-01 18:31 | XMS_ITS | Encounter Summary ---
Author Organization [facility] [place] [address] Care Team Providers Care Outbound Call Center Representative Name Role Phone Hoang Castellanos APRN Primary Care Provider Reason for Visit * Home Health Care (Routine) - Closed Specialty Diagnoses / Procedures Referred By Vanita t Referred To Contact Diagnoses Cervical spondylosis with myelopathy Adri Moe MD [address] [place] [address] [phone] Referral ID Status Reason Start Date Expiration Date V isits Requested Visits Authorized [id number] Closed Consult, Test & Treat 11/24/2021 11/24/[phone] Encounter Details Date Type Department Care Team (Late st Contact Info) Description 11/30/2021 9:00 AM EDT Home Care Visit [address] [phone] Raj Nowak, PT PT EVALUATION [...] 10.30.21. [facility] RETURNED HOME ON 11.24.21. PATIENT LIVES AT HOME WITH HER IN 1ST FLOOR APARTMENTWITH RAMP TO ENTER. PATIENT RECEIVED [facility] HH PT SERVICES PRIOR TO SURGERY TO [...] TO CONTINUE WITH SUPINE/SEATED EXERCISES INSTRUCTED PER [facility]. SHE VERBALIZES UNDERSTANDING. SHE WILL CONTINUE TO BENEFIT FROM [facility]ILL[facility] HH PT SERVICES IN ORDER TO FURTHER IMPROVE HER STRENGTH, SAFETY, AND ACTIVITY TOLERANCE, WITH GOAL FOR EVENTUAL DC TO OPPT. documented in this encounter Plan of Treatment Not on file documented as of this encounter Visit Diagnoses Not on filedocumented in this encounter Care Teams Outbound Call Center Representative Relationship Specialty Start Date End Date Hoang Castellanos APRN [address] [place] [address] PCP - General Family Medicine 03/12/20 documented as of this encounter
--- OUTSIDE RECORDS SUMMARY | 2024-08-01 18:31 | XMS_ITS | Encounter Summary ---
Author Organization [facility] Address [facility] [place] [address] Care Team Providers Care Gas Appliance Mechanic Name Role Phone Hoang Castellanos APRN Primary Care Provider Encounter Details Date Type Department Care Team (Late st Contact Info) Description 12/02/2021 2:00 PM EDT Home Care Visit [facility] [address] [place] [phone] Bárbara Morfin, RN SN HOME VISIT [...] CP assessment, hospital bed, constipation Mirilax use, LEADERSHIP INTERN supervisory if necessary, Covid screening s/s, oxygen [...] including precautions to avoid smoking, static electricity, car pilot lights on gas stoves and water [...] cg coming in to fill the pill interstate planner for her and her . Pt [...] Completed documented in this encounter Care Teams Gas Appliance Mechanic Relationship Specialty Start Date End Date Hoang Castellanos, BUILDING GUARD DEPUTY SHERIFF [address] [place] [address] PCP - General Family Medicine 03/12/20 documented as of this encounter
--- OUTSIDE RECORDS SUMMARY | 2024-08-01 18:31 | XMS_ITS | Encounter Summary ---
Author Organization [facility] Address [facility] [place] [address] Care Team Providers Care Oil Well Services Superintendent Name Role Phone Hoang Castellanos APRN Primary Care Provider Encounter Details Date Type Department Care Team (Late st Contact Info) Description 12/11/2021 2:15 PM EDT Home Care Visit [facility] [address] [place] [phone] Bárbara Morfin, RN SN HOME VISIT [...] in home, pt may need assistance calling theService Seeking company to remove empty tank. documented in this encounter Plan of Treatment Not on file documented as of this encounter Visit Diagnoses Not on filedocumented in this encounter Home Health Visit - Care Plan Visit Details Visit Type -SN Home Visit Discipline -Fci Problems Problem Description Start Date Status Goals [...] including precautions to avoid smoking, static electricity, airline pilot/first officer lights on gas stoves and water heaters, [...] house. documented in this encounter Care Teams Oil Well Services Superintendent Relationship Specialty Start Date End Date Hoang Castellanos APRN [address] [place] [address] PCP - General Family Medicine 03/12/20 documented as of this encounter
--- OUTSIDE RECORDS SUMMARY | 2024-08-01 18:31 | XMS_ITS | Encounter Summary ---
Author Organization [facility] Address [facility] [place] [address] Care Team Providers Care Office Executive Name Role Phone Hoang Castellanos APRN Primary Care Provider Encounter Details Date Type Department Care Team (Late st Contact Info) Description 12/14/2021 1:00 PM EDT Home Care Visit [facility] [address] [place] [phone] Raj Nowak, PT PT HOME VISIT [...] training documented in this encounter Care Teams Office Executive Relationship Specialty Start Date End Date Hoang Castellanos, WASHROOM OPERATOR [address] [place] [address] PCP - General Family Medicine 03/12/20 documented as of this encounter
--- OUTSIDE RECORDS SUMMARY | 2024-08-01 18:31 | XMS_ITS | Encounter Summary ---
Author Organization [facility] [place] [address] Care Team Providers Care Roulette Dealer Name Role Phone Hoang Castellanos APRN Primary Care Provider Encounter Details Date Type Department Care Team (Late st Contact Info) Description 12/01/2021 Refill Primary Care at [facility] [place] [phone] Jeannie Luciano RN Chronic obstructive pulmonary disease, unspecified COPD type; Cervicalgia; Coronary artery disease involving [place] coronary artery of [place] heart without angina pectoris Social History Tobacco [...] hospitalization in October or rehab stay at [facility]-unsure if patient realizes this change * Telephone Encounter - Jeannie Luciano RN - 12/01/2021 4:02 PM EDT Message received from [place] at [facility] asking to do a med reconciliation. [...] COPD type Cervicalgia Coronary artery disease involving [place] coronary artery of [place] heart without angina pectoris documented in this encounter Care Teams Roulette Dealer Relationship Specialty Start Date End Date Hoang Castellanos APRN [address] [place] [address] PCP - General Family Medicine 03/12/20 documented as of this encounter
--- OUTSIDE RECORDS SUMMARY | 2024-08-01 18:31 | XMS_ITS | Encounter Summary ---
Author Organization [facility] [place] [address] Care Team Providers Care Stationary Equipment Mechanic Name Role Phone Hoang Castellanos APRN Primary Care Provider Reason for Visit * Reason Comments Follow-up Encounter Details Date Type Department Care Team (Late st Contact Info) Description 12/01/2021 11:30 AM EDT Office Visit [facility] at [facility] [place] [phone] Hoang Castellanos APRN [address] [place] [address] Cervicalgia; Chronic pain syndrome; Chronic obstructive pulmonary [...] a 61 y.o. female presenting to the [facility] HPI Discharge from [facility] Neck pain s/p C5-6 PCDF on 10/30/21 [...] up but ends up on stomach anyway [facility] HH services HH RN, P.T., O.T. Right [...] lozenges/gum-would like patches Overnight oximetry done at [facility]. Home O2 was ordered through [employer]. Lowest [...] providingthis patient's care. This includes time spent dwmz-ji-zrke with the patient performing evaluation, examination, and counseling. It also includes non equf-zl-lwjc time preparing to see the patient, reviewing the chart, coordinating care, and documenting clinical information in the electronic health record. (Established patient total visit time: 04974 - 20min, 74807 - 30 min, 05298 - 40 min; New patient total visit times: 44302 - 30 min, 17193 - 45 min, 24038 - 60 min) documented in this encounter [...] limbs documented in this encounter Care Teams Stationary Equipment Mechanic Relationship Specialty Start Date End Date Hoang Castellanos APRN [address] [place] [address] PCP - General Family Medicine 03/12/20 documented as of this encounter
--- OUTSIDE RECORDS SUMMARY | 2024-08-01 18:31 | XMS_ITS | Encounter Summary ---
Author Organization [facility] [place] [address] Care Team Providers Care Stenographer Print Shop Name Role Phone Hoang Castellanos APRN Primary Care Provider Reason for Referral * Home Health Care (Routine) - Closed Specialty Diagnoses / Procedures Referred By Contdavide t Referred To Contact Diagnoses Cervical spondylosis with myelopathy Adri Moe MD [address] [place] [address] [phone] Referral ID Status Reason Start Date Expiration Date V isits Requested Visits Authorized [id number] Closed Consult, Test & Treat 11/24/2021 11/24/[phone] Encounter Details Date Type Department Care Team (Late st Contact Info) Description 11/24/2021 Transcribe Orders [facility] Incoming Referrals [phone] Adri Meo MD [address] [place] [address] Cervical spondylosis with myelopathy Social History Tobacco [...] myelopathy documented in this encounter Care Teams Stenographer Print Shop Relationship Specialty Start Date End Date Hoang Castellanos, CURATOR [address] [place] [address] PCP - General Family Medicine 03/12/20 documented as of this encounter
--- OUTSIDE RECORDS SUMMARY | 2024-08-01 18:31 | XMS_ITS | Encounter Summary ---
Author Organization [facility] Address [facility] [place] [address] Care Team Providers Care Passenger Coach Driver Name Role Phone Hoang Castellanos APRN Primary Care Provider [phone] Reason for Visit * Reason Onset Date Comments Prior Authorization 12/02/2021 Encounter Details Date Type Department Care Team (Late st Contact Info) Description 12/02/2021 Telephone Primary Care at [facility] [address] [place] [phone] Gautam Davidson Prior Authorization Social History Tobacco [...] on filedocumented in this encounter Care Teams Passenger Coach Driver Relationship Specialty Start Date End Date Hoang Castellanos APRN [address] [place] [address] PCP - General Family Medicine 03/12/20 documented as of this encounter
--- OUTSIDE RECORDS SUMMARY | 2024-08-01 18:31 | XMS_ITS | Encounter Summary ---
Author Organization [facility] Address [facility] [place] [address] Care Team Providers Care Vehicle Inspector Name Role Phone Hoang Castellanos APRN Primary Care Provider Encounter Details Date Type Department Care Team (Late st Contact Info) Description 12/04/2021 11:00 AM EDT Home Care Visit [facility] [address] [place] [phone] Jolly Haddad LNA AIDE HOME VISIT [...] Status Goals Interve ntions Personal Care Disciplines: DENTAL CHAIRSIDE ASSISTANT Aide to assist patient with personal cares as directed. 11/26/2021 Active 1 goal linked to scheduled/documen leela intervention 6 goal interventions scheduled/document ed in this visit Activity Disciplines: DENTAL CHAIRSIDE ASSISTANT Aide to assist patient activity tasks as [...] ordered Scheduled with variance N/A Transfers Description: DENTAL CHAIRSIDE ASSISTANT assist with transfers using Tub chair with extension Problem:Activity Goal:Patient activity needs will be completed by aide as ordered Completed Assist with Ambulation Description: DENTAL CHAIRSIDE ASSISTANT assist with ambulation using walker or wheelchair Problem:Activity Goal:Patient activity needs will be completed by aide as ordered Completed Assist Repositioning Description: Assist with repositioning patient. Problem:Activity Goal:Patient activity needs will be completed by aide as ordered Completed documented in this encounter Care Teams Vehicle Inspector Relationship Specialty Start Date End Date Hoang Castellanos, EXPANSION JOINT BUILDER [address] [place] [address] PCP - General Family Medicine 03/12/20 documented as of this encounter
--- OUTSIDE RECORDS SUMMARY | 2024-08-01 18:31 | XMS_ITS | Encounter Summary ---
Author Organization [facility] Address [facility] [place] [address] Care Team Providers Care Remedial Masseur Name Role Phone Hoang Castellanos APRN Primary Care Provider [phone] Encounter Details Date Type Department Care Team (Late st Contact Info) Description 06/06/2022 Plan of Care Documentation [facility] [address] [place] [phone] Social History Tobacco Use Types Packs/Day [...] on filedocumented in this encounter Care Teams Remedial Masseur Relationship Specialty Start Date End Date Hoang Castellanos, SAM [address] [place] [address] PCP - General Family Medicine 03/12/20 documented as of this encounter
--- OUTSIDE RECORDS SUMMARY | 2024-08-01 18:31 | XMS_ITS | Encounter Summary ---
Author Organization [facility] Address [facility] [place] [address] Care Team Providers Care Mussel Opener Name Role Phone Hoang Castellanos APRN Primary Care Provider Encounter Details Date Type Department Care Team (Late st Contact Info) Description 11/30/2021 Orders Only Primary Care at [facility] [address] [facility] [place] [address] Hoang Castellanos APRN [address] [place] [address] Social History Tobacco Use Types Packs/Day Years [...] on filedocumented in this encounter Care Teams Mussel Opener Relationship Specialty Start Date End Date Hoang Castellanos APRN [address] [place] [address] PCP - General Family Medicine 03/12/20 documented as of this encounter
--- OUTSIDE RECORDS SUMMARY | 2024-08-01 18:31 | XMS_ITS | Encounter Summary ---
Author Organization Formerly [facility], [facility] [place] [address] Care Team Providers Care Puncher Name Role Phone Hoang Castellanos APRN Primary Care Provider Reason for Visit * Home Health Care (Routine) - Closed Specialty Diagnoses / Procedures Referred By Vanita t Referred To Contact Diagnoses Cervical spondylosis with myelopathy Adri Moe MD [address] [place] [address] [id number] Referral ID Status Reason Start Date Expiration Date V isits Requested Visits Authorized [id number] Closed Consult, Test & Treat 11/24/2021 11/24/[id number] Encounter Details Date Type Department Care Team (Late st Contact Info) Description 12/02/2021 9:00 AM EDT Home Care Visit [address] [phone] Renetta Ta, OT OT EVALUATION [...] on filedocumented in this encounter Care Teams Puncher Relationship Specialty Start Date End Date Hoang Castellanos APRN [address] [place] [address] PCP - General Family Medicine 03/12/20 documented as of this encounter
--- OUTSIDE RECORDS SUMMARY | 2024-08-01 18:31 | XMS_ITS | Encounter Summary ---
[place] [address] Care Team Providers Care Dairy Lab Technician Name Role Phone Mark Holguin APRN Primary Care Provider Encounter Details Date Type Department Care Team (Late st Contact Info) Description 11/26/2021 Telephone Primary Care at [facility] [address] [place] [phone] Yvonne Luciano, RN Social History Tobacco Use [...] hospital bed after her recent D/C from [facility] after neck surgery. No D/C notes in chart. Called [facility] and they are re-faxing now. documented in this encounter Plan of Treatment Not on file documented as of this encounter Visit Diagnoses Diagnosis Cervical spondylosis with myelopathy documented in this encounter Care Teams Dairy Lab Technician Relationship Specialty Start Date End Date Mark Holguin APRN [address] [place] [address] PCP - General Family Medicine 03/12/20 documented as of this encounter
--- OUTSIDE RECORDS SUMMARY | 2024-08-01 18:31 | XMS_ITS | Encounter Summary ---
Author Organization [facility] [place] [address] Care Team Providers Care Die Stamper Name Role Phone Hoang Castellanos APRN Primary Care Provider [phone] Reason for Visit * Auth/Cert Specialty Diagnoses [...] Expiration Date Visits Re quested Visits Authorized [id number] 1 1 Encounter Details Date Type Department Care Team (Latest Contact Info) Description 10/30/2021 6:57 AM EDT - 11/04/2021 4:02 PM EDT Hospital Encounter [address] [place] [id number] Campos Schumacher MD [facility] [place] [address] Cervical spinal stenosis; Bradycardia; Right leg weakness [...] the last few months. telephone consent by [facility] Course: Jeannie Rico presented 10/30/2021 for elective [...] questions please contact the health child care provider that requested your imaging first. Head wo [...] questions please contact the health child care provider that requested your imaging first. Electronically signed by: Janie Aguilar MD, [facility] ([phone]), at 11/02/2021 12:47 AM XR Chest PA [...] questions please contact the health child care provider that requested your imaging first. Electronically signed by: Tahira Medrano MD, [facility] ([phone]), at 11/02/2021 11:12 AM Pending Studies and Lab Data: na Discharge Condition: Stable Discharge to: rehab Future Appointments and Orders Future Appointments and Orders Future Appointments Provider Department Dept Phone 12/03/2021 10:30 AM Campos Schumacher MD [place] at [facility] [place]rive at: [facility] [phone] 12/22/2021 9:45 AM Michael Espinoza MD Endocrinology at [facility] Arrive at: [facility] 3A [phone] Future Orders Complete By Expires XR Cervical Spine 2 or 3 Views [[id number] Custom] 12/04/2021 (Approximate) 01/04/2022 Process Instructions: Scheduling Instructions: Questions: Where will study be performed?: [facility] Radiology Portable exam?: Reason for exam and [...] lancets 30 gauge Misc 1 each by [facility]Non-Drug; Combo Route) route daily. 1 each Quantity: [...] anticoagulant, and non-steroidal anti-inflammatory (NSAIDs) drugs. Common iofg-gcv-ophzaor medications which should be avoided include Aspirin, [...] to pass. These medications can be obtained ypjf-zjv-iyihhot and their use is recommended on an [...] retention Constipation not relieved by diet and/or btin-bjc-iywmcbj stool softeners and laxatives Nausea/vomiting (upset stomach) [...] tobacco dependence clinics in these locations: ??? [facility] for Tobacco-Free Communities: [place] ??? [facility] [place], [place] Other Programs at [facility] in [place] ??? Living Free of Tobacco support group: For anyone who has quit tobacco or is considering quitting tobacco. [facility] Health Education Center, Level 4, [place] 3:30 to 4:30 p.m. on the tuesday of every month. Other Programs in the Area ??? [facility] in [place] One-on-one counseling, hypnosis. Cassidy Jamison ??? [facility] in [place], [place] One-on-one counseling, QuitLine, classes. Lay Ferris ??? [facility]: One-on-one counseling. All ages and incomes eligible. Sakshi Camacho [facility]: Classes & support group. Behzad Schwab ??? [facility] in [place], [place] One-on-one counseling, QuitLine, classes, hypnosis therapy. Ruth Corey Information about Quitting Smoking and Tobacco See our Quitting Smoking - Information and Materials page (http://www.[email or web address]/medical- information/smoking/information_on_quitting_smoking.html) for educational information about quitting smoking, downloadable smoking cessation materials, podcasts, websites, helplines, and more. FOLLOW UP PLAN: Incision: [x] Your artie need to be removed on 11/13/2021. You can get them removed by coming into our office, PCP office, or at rehab. a Appointments: Please follow up in the Neurosurgery Clinic in 4-6 weeks. Please call the Neurosurgery Office at [phone] if you do not receive a scheduled appointment within two weeks. Your follow-up appointment will be with: [x] Dr. Schumacher Follow-up Imaging: [x] XR - Cervical HOW TO REACH NEUROSURGERY Office Hours: Tuesday through Tuesday, 8am-5pm. Call . On weekends or after office hours: Call [phone] hogger operator to page the Neurosurgery Resident/Advanced Practice Provider professional driver. IMPORTANT PHONE NUMBERS: Outpatient Nurse (Karen Belle) Inpatient Nurses Neurosurgical Resident/Advanced Practice Provider On-Call (after 5pm or before 8am) Neurosurgery offices (Tuesday through Tuesday between 8am-5pm): Adult Neurosurgery Dr. Remy Green Pediatric Neurosurgery Dr. Cassidy Funes Advanced Practice Providers Prudence Heaton, Nurse Practitioner (outpatient) Cheryl Patel, Physician Dairy Technologist (inpatient) Mabel Metcalf, Nurse Practitioner (inpatient) Brandi Chiu, Physician Dairy Technologist (inpatient) Brandi Benavides, Physician Dairy Technologist (inpatient) Karen Barksdale, Nurse Practitioner (outpatient: vascular) Amanda Mendez, Physician Dairy Technologist (outpatient: spine) David Herring, Nurse Practitioner (inpatient/outpatient) Freddy Dolan, Physician Dairy Technologist (outpatient) Margo Almodovar, Nurse Practitioner (outpatient: neuro-oncology) HOW TO REACH NEUROSURGERY Office Hours (Tuesday through Tuesday 8am-5pm): Call On weekends or after office hours (after 5pm or before 8am): Call [phone] hogger operator to page the Neurosurgery Resident/Advanced Practice Provider professional driver. *Your surgeon may not be office machine inspector (especially after office hours or on the weekend) so be ready totell about yourself and your surgery when you call. Neurosurgery Providers Adult Neurosurgery Dr. Remy Green Pediatric Neurosurgery Dr. Cassidy Funes Advanced Practice Providers Prudence Heaton, Nurse Practitioner (outpatient) Cheryl Patel, Physician Dairy Technologist (inpatient) Mabel Metcalf, Nurse Practitioner (inpatient) Brandi Chiu, Physician Dairy Technologist (inpatient) Dereck Salgado, Nurse Practitioner (outpatient: pediatric) Brandi Benavides, Physician Dairy Technologist (inpatient) Karen Barksdale, Nurse Practitioner (outpatient: vascular) Amanda Mendez, Physician Dairy Technologist (outpatient: spine) David Herring, Nurse Practitioner (inpatient/outpatient) Freddy Dolan, Physician Dairy Technologist (outpatient) Margo Almodovar, Nurse Practitioner (outpatient: neuro-oncology) [...] anticoagulant, and non-steroidal anti-inflammatory (NSAIDs) drugs. Common ssoq-ike-pwrnpiu medications which should be avoided include Aspirin, [...] to pass. These medications can be obtained xpjr-amz-qpqpstr and their use is recommended on an [...] retention Constipation not relieved by diet and/or smra-asm-owkrumb stool softeners and laxatives Nausea/vomiting (upset stomach) [...] have tobacco dependence clinics in these locations: [facility] Tobacco-Free Communities: [place] [facility], [place] Other Programs at [facility] [place] Living Free of Tobacco support group: For anyone who has quit tobacco or is considering quitting tobacco. [facility] Health Education Center, Level 4, [place] 3:30 to 4:30 p.m. on the tuesday of every month. Other Programs in the Area [facility] in [place] One-on-one counseling, hypnosis. Cassidy Jamison [facility] in [place], [place] One-on-one counseling, QuitLine, classes. Lay [place] [facility]: One-on-one counseling. All ages and incomes eligible. Sakshi Camacho [facility]: Classes & support group. Behzad Schwab [facility] in [place], [place] One-on-one counseling, QuitLine, classes, hypnosis therapy. Ruth Corey Information about Quitting Smoking and Tobacco See our Quitting Smoking - Information and Materials page (http://[email or web address]/medical- information/smoking/information_on_quitting_smoking.html) for educational information about quitting smoking, downloadable smoking cessation materials, podcasts, websites, helplines, and more. FOLLOW UP PLAN: Incision: [x] Your artie need to be removed on 11/13/2021. You can get them removed by coming into our office, PCP office, or at rehab. a Appointments: Please follow up in the Neurosurgery Clinic in 4-6 weeks. Please call the Neurosurgery Office at [phone] if you do not receive a scheduled appointment within two weeks. Your follow-up appointment will be with: [x] Dr. Schumacher Follow-up Imaging: [x] XR - Cervical HOW TO REACH NEUROSURGERY Office Hours: Tuesday through Tuesday, 8am-5pm. Call . On weekends or after office hours: Call [phone] hogger operator to page the Neurosurgery Resident/Advanced Practice Provider professional driver. IMPORTANT PHONE NUMBERS: Outpatient Nurse (Karen Belle) Inpatient Nurses Neurosurgical Resident/Advanced Practice Provider On-Call (after 5pm or before 8am) Neurosurgery offices (Tuesday through Tuesday between 8am-5pm): Adult Neurosurgery Dr. Remy Green Pediatric Neurosurgery Dr. Cassidy Funes Advanced Practice Providers Prudence Heaton, Nurse Practitioner (outpatient) Cheryl Patel, Physician Dairy Technologist (inpatient) Mabel Metcalf, Nurse Practitioner (inpatient) Brandi Chiu, Physician Dairy Technologist (inpatient) Brandi Benavides, Physician Dairy Technologist (inpatient) Karen Barksdale, Nurse Practitioner (outpatient: vascular) Amanda Mendez, Physician Dairy Technologist (outpatient: spine) David Herring, Nurse Practitioner (inpatient/outpatient) Freddy Dolan, Physician Dairy Technologist (outpatient) Margo Almodovar, Nurse Practitioner (outpatient: neuro-oncology) documented in this encounter Medications at Time of Discharge Medication Sig Dispensed Refills Start Date End Date Miscellaneous Medical Supply MiscIndications:Dizzine ss,Chronic right-sided low back pain without sciatica 1 walker on wheels with seat 1 each 03/12/2020 multivitamin (THERAGRAN) Tablet Take 1 tablet by mouth daily. MARIJUANA ORAL Take 1 Dose by mouth 2 times daily. polyethylene glycoL (Miralax) 17 gram Powder in [...] BREKAFAST AND IN THE EVENING 56 capsule 09/01/2021 clonazePAM (KlonoPIN) 0.5 mg Tablet Take [...] ONCE WEEKLY (PM) 4 tablet 03/17/2021 02/15/2022 isosorbide mononitrate CR (Imdur) 30 mg Tablet Sustained Release 24 hrIndications:Coronary artery disease involving [place] coronary artery of [place] heart without angina pectoris TAKE ONE (1) TABLET BY MOUTH EVERY DAY 28 tablet 02/17/2021 01/18/2022 Ventolin HFA 90 mcg/actuation HFA Aerosol InhalerIndications:Behavioral Health Tech randell obstructive pulmonary disease, unspecified COPD type INHALE 1 TO 2 PUFFS EVERY SIX HOURS NEEDED *CALL TO REFILL* 18 g 2 10/27/2020 12/01/2021 nitroGLYcerin (Nitrostat) 0.4 mg Tablet, Sublingual Place 1 tablet under the tongue every 5 minutes as needed for Chest pain. 30 tablet 1 06/02/2020 12/01/2021 sertraline (ZOLOFT) 100 mg Tablet Take 2 tablets by mouth 2 times daily. 01/27/2020 04/14/2023 lancets 30 gauge MiscIndications:Type 2 diabetes mellitus without complication, without long-term current use of insulin [The details of the medication are not available because there are pending changes by a home health clinician.] 100 each 3 12/26/2019 11/30/2021 alum-mag hydroxide-simeth (Maalox) 200-200-20 mg/5 mL Suspension Take 10 mLs by mouth every 6 hours as needed for Indigestion. 11/26/2021 traMADoL 100 mg Tablet Take 100 mg by mouth every 6 hours as needed for Pain. 45 tablet 11/04/2021 12/01/2021 prazosin (Minipress) 2 mg Capsule Take 3 capsules by mouth nightly. 84 capsule 11 09/29/2021 04/14/2023 tiZANidine (Zanaflex) 4 mg TabletIndications:Cervi calgia,Chronic pain syndrome Take 1 tablet by mouth every 6 hours as needed. 30 tablet 3 09/15/2021 12/01/2021 amLODIPine (Norvasc) 5 mg TabletIndications:[place] essential hypertension TAKE ONE (1) TABLET BY MOUTH EVERY DAY 28 tablet 11 09/01/2021 12/01/2021 cholecalciferol, Vitamin D3, (Vitamin D3) 1,000 unit [...] EVERY DAY 28 tablet 11 06/09/2021 05/07/2022 Acidophilus Capsule Take 1 tablet by mouth [...] EVERY DAY 28 tablet 11 04/14/2021 12/01/2021 ARIPiprazole (Abilify) 5 mg Tablet Take 5 mg by mouth daily. Taking half 12/12/2019 12/11/2021 documented as of this encounter Progress Notes * Kanu Roberts RN - 11/04/2021 4:02 PM EDT Jeannie Rico discharged to [facility] by ambulance. All belongings sent with patient. KILO removed, incision FRANCISCO, skin free from pressure ulcers. Discharge instructions, medications, and follow-up appointments reviewed, education provided on 1300, all questions answered. Report called to at 1300. Patient instructed to call with concerns. * Parvin Barksdale RN - 11/04/2021 11:44 AM EDT Physician Certification Statement for Non-Emergency Ambulance Services Section I - General Information Jeannie Rico 1960 Medicare Number: [id number] Transport Date: 11/04/21 (PCS is valid for round trips on this date and for all repetitive trips in the 60-day range as noted below.) Origin: [facility] Destination: [facility], [place] Is the patient's stay covered under [...] wheelchair van (i.e. seated during transport, without medical secretary teacher or monitoring?): No 4) In addition to [...] ambulance transport. Parvin Barksdale MSN-Ed, RN ACM fountain server Office of Care Management Pager #[phone] * Kanu Roberts RN - 11/04/2021 11:23 [...] AM EDTSummary: Discharge Note Office of Care Management/Nursing Assistants Teacher Patient Name: Jeannie Rico : 1960 Patient has been offered an acute rehab bed at [facility] for today, 11/04/21 [facility] arranged for a 1530 transport. Ambulance will need: Medicare ambulance form completed and signed (MD or Security Professional RN/DOOR REPAIRMAN) Copy of patient demographics [place] Out of Hospital DNR/DNI order, if active No MD to MD report necessary Please call Nursing Report to , ask for spray mixer. Info to accompany patient: Copies of Medication Administration Records and IV sheets for past 10 days. Plan: Nursing Assistants Teacher will be available to the patient and Security Professional-RN and/or Social Workerfor further assistance. Patient will be discharged to: [facility] Jeremy Pearson, Nursing Assistants Teacher * Amelie Howell OTA - 11/04/2021 9:37 [...] ?? Safety awareness: impulsive ?? Vision:corrective lenses maritime guard ?? minimal vision R eye ?? Strength [...] Therapy Rehabilitation Department SRUTHI Tomas Pager # [phone] Patient status, treatment interventions, and goals discussed [...] Procedure Component Value Units Date/Time COVID-19 PCR [[id number]] Collected: 11/02/21 1615 Lab Status: Final result [...] using the Simplexa COVID-19 Direct Assay by Thwapr as authorized by the FDA issued Emergency [...] Department of Pathology and Laboratory Medicine at [facility], certified under the Clinical Laboratory Improvement Amendments [...] fact sheets at the following FDA website: https://www.fda.gov/medical-devices/onsyldjmxsa-crbhxak-9714-rrfdc-14-fgmfgmaxn- qco-qxjzqofrmgirqh-lthvwwo-devices/jkwxs-mwrbdecapiz-dzrd SARS-CoV-2 Source DICER MACHINE OPERATOR Swab COVID-19 PCR [[id number]] Collected: 10/27/21 1132 Lab Status: Final result [...] diagnosis of COVID-19 is performed using the Wink m SARS-CoV-2 Assay as authorized by the FDA Emergency Use Authorization (EUA). This EUA assay is intended for In-vitro Diagnostic (IVD) use with respiratory specimens such as nasopharyngeal swabs collected from individuals during the acute phase of infection. This assay is performed based on the instructions for use provided by [employer] and additional guidance provided by CDC and FDA. Testing is performed in the Clinical Genomics and Advanced Technology Laboratory within the Department of Pathology and Laboratory Medicine at [facility], certified under the Clinical Laboratory Improvement Amendments [...] fact sheets at the following FDA website: https://www.fda.gov/medical-devices/wztsezmwxoe-qybflfn-3146-zrddg-04-ilzmcsbac- kfm-hinxilxiqspspg-hohcaab-devices/plssb-nqxlpgjshwd-pdik SARS-Cov-2 RNA Source DICER MACHINE OPERATOR Swab Diagnostic Studies: Results for orders [...] questions please contact the health child care provider that requested your imaging first. Head wo [...] posterior neck. Preliminary report signed by: Tyron Raoch at 11/01/2021 11:52 PM I have personally [...] questions please contact the health child care provider that requested your imaging first. Electronically signed by: Janie Aguilar MD, [facility] ([phone]), at 11/02/2021 12:47 AM XR Chest PA [...] questions please contact the health child care provider that requested your imaging first. Electronically signed by: Tahira Medrano MD, [facility] ([phone]), at 11/02/2021 11:12 AM Inpatient Medications: Scheduled [...] changes occur or new questions arise, page [phone]. Case discussed with Dr. Adal Trinidad. Associated [...] Oxygen weaned off, with intermittent requirement in manager insurance which likely relates to sleep apnea. Hemodynamics [...] RNSARIKA.Patient reported she would go to the [facility] facility.She reported that the HCRS staff had told her they would be checking on her in the home while she was at Rehab which has made the decision easier. Kimberly Lee DOOR REPAIRMAN,[facility] [id number] * Kanu Roberts RN - 11/03/2021 [...] is home, and has home PT and manager home services. Bathroom Set-up: tub shower with seat [...] Billing Code: functional mobility ANDRES NINO PT Pager:[phone] Physical Therapy Inpatient Rehabilitation Department * Kimberly [...] John King and her Casemanager Jodie at [facility] out of [place].Her team has been callingto check in on her while she has been Hospitalized.Patient reports she is on MH medications and hasnot had any side effects from the medications that she can not tolerate at this time.Patient ststesher has MH struggles also and [facility] will be checking on him while she is I rehab for a couple of weeks. Kimberly DIOR,[facility] [id number] * Amelie Howell, FRANCISCO - 11/03/2021 [...] ?? Safety awareness: impulsive ?? Vision:corrective lenses maritime guard ?? minimal vision R eye ?? Strength and ROM: ?? Pt strength and ROM in RUE improved 4/5 strength with report of improvement in sensation ?? Endurance:fair ?? Vitals: pt reported feeling lightheaded following sup>sit, BP taken: 109/68. ?? Pt oxygen found not to be turned on, this board writer placed pt on 2 L. VSS [...] Occupational Therapy Rehabilitation Department Amelie NEGRO Pager #[phone] Patient status, treatment interventions, and goals discussed [...] Procedure Component Value Units Date/Time COVID-19 PCR [[id number]] Collected: 11/02/21 1615 Lab Status: Final result [...] using the Simplexa COVID-19 Direct Assay by Thwapr as authorized by the FDA issued Emergency [...] Department of Pathology and Laboratory Medicine at [facility], certified under the Clinical Laboratory Improvement Amendments [...] fact sheets at the following FDA website: https://www.fda.gov/medical-devices/hnynbsmqehp-yscbdke-9991-gsrgu-51-xywhygxkc- uwy-ztyvbmgzwivrmo-xezxqfg-devices/dierd-fkjwsvjiolm-wdxs SARS-CoV-2 Source DICER MACHINE OPERATOR Swab COVID-19 PCR [[id number]] Collected: 10/27/21 1132 Lab Status: Final result [...] diagnosis of COVID-19 is performed using the Wink m SARS-CoV-2 Assay as authorized by the FDA Emergency Use Authorization (EUA). This EUA assay is intended for In-vitro Diagnostic (IVD) use with respiratory specimens such as nasopharyngeal swabs collected from individuals during the acute phase of infection. This assay is performed based on the instructions for use provided by [employer] and additional guidance provided by CDC and FDA. Testing is performed in the Clinical [employer] [facility] Laboratory within the Department of Pathology and Laboratory Medicine at [facility], certified under the Clinical Laboratory Improvement Amendments [...] fact sheets at the following FDA website: https://www.fda.gov/medical-devices/qqwzopfzpzr-dosvxfq-9276-jyqsx-85-vjobihawa- zgm-xllzurvnsscujt-kkjkljd-devices/ktbel-mzlgegrcfad-dyvx SARS-Cov-2 RNA Source DICER MACHINE OPERATOR Swab Diagnostic Studies: Results for orders [...] questions please contact the health child care provider that requested your imaging first. Head wo [...] questions please contact the health child care provider that requested your imaging first. Electronically signed by: Janie Aguilar MD, [facility] ([phone]), at 11/02/2021 12:47 AM XR Chest PA [...] questions please contact the health child care provider that requested your imaging first. Electronically signed by: Tahira Medrano MD, [facility] ([phone]), at 11/02/2021 11:12 AM Inpatient Medications: Scheduled [...] is home, and has home PT and manager home services. Bathroom Set-up: tub shower with seat [...] Billing Code: functional mobility ANDRES NINO, PT Pager:[phone] Physical Therapy Inpatient Rehabilitation Department * Parvin Barksdale RN - 11/02/2021 10:28 AM EDT Based on discussions with the multi-disciplinary healthcare team, the patient would benefit from acute/swing level of care at discharge. ?? I have met with the Patient to discuss discharge planning needs. I have provided the [facility], Office of Care Management letter from the Cinder Crew Worker pertaining to rehab referrals. I have also provided a letter describing our affiliations within the [facility] and educatedthem about their right to choose where referrals are. ?? Provided patient with [facility] Star Quality Rating for SNF, LTAC and/or [...] requested referrals to: 1. [facility] [address] [place] [address] ?? 2. [facility] Acute Rehabilitation and Sub-Acute (Swing) Rehab Levels of Care [address] [place] [address] ?? 3. [facility] (Swing) ([facility]) [address] [place] [address] ?? PHONE: [phone] FAX: [phone] ?? Expected date of discharge: 11/03/21 Has patient received the COVID vaccine: Yes Booster: Yes Does patient have COVID vaccine card: Yes Copy of Card Obtained: No Note routed to Nursing Assistants Teacher who will communicate referrals to facilities and provide any required information. Parvin Barksdale MSN-Ed, RN ACM fountain server Office of Care Management Pager #[phone] * Earlene Lee RN - 11/02/2021 12:14 AM EDT Patient desated to 70s on 3l NC o2, on 4L o2 NC, sat is 94%. Provider aware. Patient had a ct head and neck as her RLE was 2/5 strength at bedtime, and family was concerned about patient's shorter responses and confusion, though was AOx4 for this board writer's check of orientationat bedtime. Provider aware. [...] 17.4) performed by Campos Schumacher MD at [facility] MAIN OR PRO DUDLEY W/O FACETEC FORAMOT/DSKC 1/ VRT SEG, CERVICAL N/A 10/30/2021 LAMINECTOMY, CX W/EXPLOR , W/O FACETECTOMY, 1 OR 2 SEGMENTS (WRVU 17.61) performed by Campos Schumacher MD at [facility] MAIN OR PRO POSTERIOR SEGMENTAL INSTRUMENTATION 3-6 VRT SEG N/A 10/30/2021 POST SPINAL INSTRUMENTATION, 3-6 VERTEBRA, NON SEGMENTAL (WRVU 12.56) performed by Campos Schumacher MD at [facility] MAIN OR PRO UPPER GI ENDOSCOPY, BIOPSY N/A 12/03/2015 EGD WITH BIOPSY performed by Ken Sanders MD at [facility] ENDOSCOPY PRO UPPER GI ENDOSCOPY, BIOPSY N/A 09/19/2018 UPPER GASTROINTESTINAL ENDOSCOPY,WITH BIOPSY SINGLE OR MULTIPLE (WRVU 2.49) performed by Tyrno Mercado MD at [facility] TONSILLECTOMY UPPER GI ENDOSCOPY, EXAM 12/04/2010 UPPER GI ENDOSCOPY performed by DEE WRIGHT at [facility] Social History: Home set-up: Pt lives with he in an apt with 3 cats. is home, and has home PT and manager home services. Bathroom Set-up: tub shower with seat [...] 54 Billing Code: miles NINO, PT Pager: [phone] Physical Therapy Inpatient Rehabilitation Department * Pham [...] 17.4) performed by Campos Schumacher MD at [facility] MA[facility] OR ??? PRO DUDLEY W/O FACETEC FORAMOT/DSKC 1/2 VRT SEG, CERVICAL N/A 10/30/2021 LAMINECTOMY, CX W/EXPLOR , W/O FACETECTOMY, 1 OR 2 SEGMENTS (WRVU 17.61) performed by Campos Schumacher MD at [facility] MAIN OR ??? PRO POSTERIOR SEGMENTAL INSTRUMENTATION 3-6 VRT SEG N/A 10/30/2021 POST SPINAL INSTRUMENTATION, 3-6 VERTEBRA, NON SEGMENTAL (WRVU 12.56) performed by Campos Schumacher MD at [facility] MAIN OR ??? PRO UPPER GI ENDOSCOPY, BIOPSY N/A 12/03/2015 EGD WITH BIOPSY performed by Ken Sanders MD at [facility] ??? PRO UPPER GI ENDOSCOPY, BIOPSY N/A 09/19/2018 UPPER GASTROINTESTINAL ENDOSCOPY,WITH BIOPSY SINGLE OR MULTIPLE (WRVU 2.49) performed by Tyron Mercado MD at [facility] ??? TONSILLECTOMY ??? UPPER GI ENDOSCOPY, EXAM 12/04/2010 UPPER GI ENDOSCOPY performed by DEE WRIGHT at [facility] Social History: Patient lives with her [...] deficits Vision & Perception: ?? corrective lenses maritime guard ?? minimal vision R eye Communication: WFL [...] and measurable assessment of functional outcome. Pager: [phone] Pham Shannon OT 11/01/2021 Occupational Therapy Rehabilitation [...] eval as able. Kenna Diane, PT Pager: [phone] Physical Therapy Inpatient Rehabilitation Department * Moe [...] for tomorrow to see as appropriate. Pager: [phone] MOE CANTRELL OT 10/31/2021 Occupational Therapy Rehabilitation [...] BIOPSY performed by Ken Sanders MD at [facility] ??? PRO UPPER GI ENDOSCOPY, BIOPSY N/A 09/19/2018 UPPER GASTROINTESTINAL ENDOSCOPY,WITH BIOPSY SINGLE OR MULTIPLE (WRVU 2.49) performed by Tyron Mercado MD at [facility] ??? TONSILLECTOMY ??? UPPER GI ENDOSCOPY, EXAM 12/04/2010 UPPER GI ENDOSCOPY performed by DEE WRIGHT at [facility] Medications: No current facility-administered medications on [...] 30 tablet 1 ??? Miscellaneous Medical Supply [facility] 1 walker on wheels with seat 1 each 0 ??? ibuprofen (Advil;Motrin) 800 mg Tablet Take 1 tablet by mouth every 8 hours as needed for Pain.90 tablet 5 ??? sertraline (ZOLOFT) 100 mg Tablet Take 2 tablets by mouth 2 times daily. ??? multivitamin (THERAGRAN) Tablet Take 1 tablet by mouth daily. ??? lancets 30 gauge Misc 1 each by [facility]Non-Drug; Combo Route) route daily. 100 each 3 [...] - 10/30/2021 12:50 PM EDT [facility]UR[facility]ST[facility] INTRAOPERATIVE MONITORING REPORT Name: Jeannie Rico [...] and abductor hallucis brevis recordings. CPT Codes: 32790 (EEG); 89615 (EMG 2 limbs); 73748 (EMG limited x2) 21739 (TOF, 4 nerves); 01851 (upper & lower MEP); 96714 (upper and lower SSEP bilateral); 31053 (IOM, 7 units); 40817 (IOM, 2 units). Intraoperative Neurophysiologic Monitoring was [...] & Follow-up Care: Contact information for follow-up [facility] Admissions - [place] [address] [facility] [address] Transportation: Wheelchair van/Ambulance? Yes Ambulance transportation is [...] MEDICAID [place] Prescription Coverage: Yes Preferred Pharmacy: [facility] [place] [address] [facility] [address] [facility] [address] [facility] [place] [place] [facility] [address] [facility] [address] [facility] [address] This plan was formulated with input from patient, pt and family (please identify family/friend involved if applicable) and team. All are in agreement with plan. Parvin BATEMAN, RN Pager #[phone] * Plan of Care - Sarah Hanson [...] lancets 30 gauge Misc 1 each by [facility]Non-Drug; Combo Route) route daily. 100 each 3 [...] 17.4) performed by Campos Schumacher MD at [facility] MAIN OR ??? PRO DUDLEY W/O FACETEC FORAMOT/DSKC 07/26 VRT SEG, CERVICAL N/A 10/30/2021 LAMINECTOMY, CX W/EXPLOR , W/O FACETECTOMY, 1 OR 2 SEGMENTS (WRVU 17.61) performed by Campos Schumacher MD at [facility] MAIN OR ??? PRO POSTERIOR SEGMENTAL INSTRUMENTATION 3-6 VRT SEG N/A 10/30/2021 POST SPINAL INSTRUMENTATION, 3-6 VERTEBRA, NON SEGMENTAL (WRVU 12.56) performed by Campos Schumacher MD at [facility] MAIN OR ??? PRO UPPER GI ENDOSCOPY, BIOPSY N/A 12/03/2015 EGD WITH BIOPSY performed by Ken Sanders MD at [facility] ??? PRO UPPER GI ENDOSCOPY, BIOPSY N/A 09/19/2018 UPPER GASTROINTESTINAL ENDOSCOPY,WITH BIOPSY SINGLE OR MULTIPLE (WRVU 2.49) performed by Tyron Mercado MD at [facility] ??? TONSILLECTOMY ??? UPPER GI ENDOSCOPY, EXAM 12/04/2010 UPPER GI ENDOSCOPY performed by DEE WRIGHT at [facility] Family History: Mother: from lung cancer at age 64; COPD, smoker, congestive heart failure Father: HTN, DM, Kidney Cancer, Skin Cancer; from [place] at 76 Maternal Grandmother - at age 35 y/o due to ovarian Social History: Tobacco: not a current smoker; prior 3 packs a day smoker - quit 3 months prior Etoh: none Illicits: uses medical marijuana Living Situation: Lives in [place], [place] Occupation: On disability due to mental [...] questions please contact the health child care provider that requested your imaging first. Head wo [...] questions please contact the health child care provider that requested your imaging first. Electronically signed by: Janie Aguilar MD, [facility] ([phone]), at 11/02/2021 12:47 AM XR Chest PA [...] questions please contact the health child care provider that requested your imaging first. Electronically signed by: Tahira Medrano MD, [facility] ([phone]), at 11/02/2021 11:12 AM Assessment: Ms. Jeannie [...] MD Internal Medicine, PGY3 DINORA Pager # [phone] Associated attestation - Adal Trinidad MD - [...] TBD pending rehab evals and hospital course. DOOR REPAIRMAN support for PMH PTSD, bipolar DO and anxiety. Care Management will continue to follow and assist with discharge planning and coordination of care as indicated. Anticipated Date of Discharge: 11/04/2021 Parvin BATEMAN, RN Pager #[phone] * Initial Assessments - Parvin Barksdale RN - 10/31/2021 1:55 PM EDT Office of Care Management Initial Assessment Medical record reviewed. Plan of care and patient status discussed with direct care Registered Nurse and/or Care Team in multidisciplinary rounds. Reason for Hospitalization: spinal surgery Last COVID test: Lab Results Component Value Date COVID19 Not Detected 10/27/2021 [id number] Not Detected 07/03/2020 Present on Admission: ??? Arthrodesis present Hospitalizations Within the Past 30 Days: no previous admission in last 30 days Patient receiving hospital care under IPI- SDP Admission (IP) status. Admission order reviewed. Primary Insurance on file: MEDICARE Secondary Insurance on file:@ Primary care provider on file: Hoang Castellanos, NEW ACCOUNTS BANKING REPRESENTATIVE [phone] Pharmacy: [facility] - [place], [place] - [address] [facility] [address] [place] [address] [facility] - [place], [place] [address] [facility] [address] Advance Care Planning: Attempt Cardiopulmonary Resuscitation - Inpatient Received -Advanced Directive: Yes, on file Who is your DPOA-HC?: Sibling Current Functional Ability: Completely Dependent Functional Status Prior to Admission: unable to assess Home Environment: Others in the home: spouse. Current Living Arrangements: home/apartment/condo. Accessibility Concerns: . Current DME: unable to assess [address] [place] [address] Social & Family Supports: All names listed below confirmed with patient as current and correct Extended Emergency Contact Information Primary Emergency Contact: Kyra Mittal Address: [address] [place] Relation: Sibling Secondary Emergency Contact: jodie espinoza Mobile Relation: Electric Range Preparer Current Care Provided by: unable to assess [...] TBD pending hospital course and rehab evals. DOOR REPAIRMAN consult requested for emotional support r/t PMH PTSD, bipolar DO and anxiety. Registered Nurse Security Professional / Webbing Supervisor will continue to follow patient???s progress and remain available if situation changes for coordination of care, psychosocial support and/or discharge planning. Office of Care Management aPrvin Barksdale MSN, RN Pager #[phone] * Plan of Care - Irasema Calix [...] Operative Note Patient Name: Jeannie Rico : [id number] MR#: [id number] Case Date: 10/30/2021 Surgeon: Surgeon(s) and Role: [...] Lu MD - 10/30/2021 10:44 AM EDT [facility] [place] Patient Name: Jeannie Rico : [id number] MR#: [id number] Case Date: 10/30/2021 Surgeon: Surgeon(s) and Role: [...] C6, which was again confirmed by fluoroscopy. Roll Picker holes for our screws were then fashioned bilaterally along the lateral masses of C5 and C6 using a modified Magerl technique with insertion point slightly inferior and medial to the midpoint ofthe lateral masses first using the OSSIANIXas Cirilo C1 drill bit for the cortical rim, followed by hand drill, tap, and confirmation with ball tip feeler. The right C6 entry point required redirection to avoid entering the facet space. Once we were satisfied with the sdv pilot/navigator/dds operator holes bone wax was placed in thepilot holes. Attention was then given to laminectomy. The OSSIANIXas Cirilo drill M8 bit was used to [...] healing. Attention was then given to closure. [place] irrigation was then performed and meticulous hemostasis [...] then flipped onto the recovery bed, Garsia apple packing header removed, and extubated without incident. At [...] 11/02/2021 7:51 PM EDT RAPID COVID-19 PCR ([facility]) Routine 11/02/2021 4:15 PM EDT POCT GLUCOSE [...] 1 2:21 PM EDT BASIC METABOLIC PANEL Routine 10/31/2021 12:21 PM EDT EKG 12-LEAD [...] W/O Facetec Foramot/Dskc 07/26 Vrt Seg, Cervical (28847) 10/30/2021 8:44 AM EDT C 5/6 and 6/7 ACDF MODIFIER,POSTERIOR CERVICAL INFINITY MEDTRONIC 10/30/2021 8:44 AM EDT C 5/6 and 6/7 ACDF Posterior Segmental Instrumentation 3-6 Vrt Seg (71577) 10/30/2021 8:44 AM EDT C 5/6 and 6/7 ACDF Arthrodesis, Post/Posterolat Tq, Sngle Interspace; Cervical Below C2 Segmnt (14397) 10/30/2021 8:44 AM EDT C 5/6 and 6/7 ACDF POCT GLUCOSE Routine 10/30/2021 8:11 AM EDT documented in this encounter Results * POCT Glucose (11/04/2021 11:50 AM EDT) Glucose, POC 97 65 - 199 mg/dL [facility] Comment: Supplemental ranges: <140 mg/dL before meals <180 mg/dL all other times of the day Blood 11/04/2021 11:5 0 AM EDT 11/04/2021 11:50 AM EDT Campos Schumacher MD POINT OF CARE TEST O ALYSON [facility] [place] [address] * POCT Glucose (11/04/2021 7:41 AM EDT) Glucose, POC 133 65 - 199 mg/dL [facility] Comment: Supplemental ranges: <140 mg/dL before meals <180 mg/dL all other times of the day Blood 11/04/2021 7:41 AM EDT 11/04/2021 7:41 AM EDT Campos Schumacher MD POINT OF CARE TEST O ALYSON Performing Organization Address [facility]/ZIP Co de Phone Number [facility] [place] [address] * POCT Glucose (11/04/2021 3:56 AM EDT) Glucose, POC 85 65 - 199 mg/dL [facility] Comment: Supplemental ranges: <140 mg/dL before meals <180 mg/dL all other times of the day Blood 11/04/2021 3:56 AM EDT 11/04/2021 3:56 AM EDT Campos Schumacher MD POINT OF CARE TEST O ALYSON Performing Organization Address City/[facility]/ZIP Co de Phone Number [facility] [place] [address] * POCT Glucose (11/03/2021 11:46 PM EDT) Glucose, POC 98 65 - 199 mg/dL [facility] Comment: Supplemental ranges: <140 mg/dL before meals <180 mg/dL all other times of the day Blood 11/03/2021 11:4 6 PM EDT 11/03/2021 11:46 PM EDT Campos Schumacher MD POINT OF CARE TEST O JEREMYERAKE [facility] [place] [address] * POCT Glucose (11/03/2021 7:56 PM EDT) Glucose, POC 95 65 - 199 mg/dL [facility] Comment: Supplemental ranges: <140 mg/dL before meals <180 mg/dL all other times of the day Blood 11/03/2021 7:56 PM EDT 11/03/2021 7:56 PM EDT Campos Schumacher MD POINT OF CARE TEST O JEREMYERAKE Performing Organization Address City/[facility]/ZIP Co de Phone Number [facility] [place] [address] * (ABNORMAL) POCT Glucose (11/03/2021 3:15 PM EDT) Glucose, POC 216(H) 65 - 199 mg/dL [facility] Comment: Supplemental ranges: <140 mg/dL before meals <180 mg/dL all other times of the day Blood 11/03/2021 3:15 PM EDT 11/03/2021 3:15 PM EDT Campos Schumacher MD POINT OF CARE TEST O RDERABLES Performing Organization Address City/[facility]/ZIP Co de Phone Number [facility] [place] [address] * (ABNORMAL) POCT Glucose (11/03/2021 12:03 PM EDT) Glucose, POC 307(H) 65 - 199 mg/dL [facility] Comment: Supplemental ranges: <140 mg/dL before meals <180 mg/dL all other times of the day Blood 11/03/2021 12:0 3 PM EDT 11/03/2021 12:03 PM EDT Campos Schumacher MD POINT OF CARE TEST O ALYSON Performing Organization Address [facility]/ZIP Co de Phone Number [facility] [place] [address] * POCT Glucose (11/03/2021 7:44 AM EDT) Glucose, POC 110 65 - 199 mg/dL [facility] Comment: Supplemental ranges: <140 mg/dL before meals <180 mg/dL all other times of the day Blood 11/03/2021 7:44 AM EDT 11/03/2021 7:44 AM EDT Campos Schumacher MD POINT OF CARE TEST O ALYSON Performing Organization Address [facility] Co de Phone Number [facility] [place] [address] * POCT Glucose (11/03/2021 4:13 AM EDT) Glucose, POC 103 65 - 199 mg/dL [facility] Comment: Supplemental ranges: <140 mg/dL before meals <180 mg/dL all other times of the day Blood 11/03/2021 4:13 AM EDT 11/03/2021 4:13 AM EDT Campos Schumacher MD POINT OF CARE TEST O ALYSON Performing Organization Address [facility]/ZIP Co de Phone Number [facility] [place] [address] * POCT Glucose (11/03/2021 12:03 AM EDT) Glucose, POC 100 65 - 199 mg/dL [facility] Comment: Supplemental ranges: <140 mg/dL before meals <180 mg/dL all other times of the day Blood 11/03/2021 12:0 3 AM EDT 11/03/2021 12:03 AM EDT Campos Schumacher MD POINT OF CARE TEST O RDERAKE [facility] [place] [address] * POCT Glucose (11/02/2021 7:51 PM EDT) Pathologist [facility] Glucose, POC 116 65 - 199 mg/dL [facility] Comment: Supplemental ranges: <140 mg/dL before meals <180 mg/dL all other times of the day Blood 11/02/2021 7:51 PM EDT 11/02/2021 7:51 PM EDT Campos Schumacher MD POINT OF CARE TEST O ALYSON Performing Organization Address [facility] Co de Phone Number [facility] [place] [address] * COVID-19 PCR (11/02/2021 4:15 PM EDT) [facility] SARS-CoV-2 RNA (Rapid) Not Detected Not Detected [facility] Comment: This result should be [...] using the Simplexa COVID-19 Direct Assay by [employer] as authorized by the FDA issued Emergency [...] Department of Pathology and Laboratory Medicine at [facility], certified under the Clinical Laboratory Improvement Amendments [...] fact sheets at the following FDA website: https://www.fda.gov/medical-devices/nggnhafvanh-uqwspez-8534-mgkbb-44-kuffkzfqk- use-a yobngpmmynznp-qpxgugv-bzdgzei/rhczw-ghvjfmtoewm-clig SARS-CoV-2 Source DICER MACHINE OPERATOR Swab ID [facility] Nasopharyngeal Swab 11/03/19 4:15 PM EDT 11/02/2021 5:10 PM EDT Comment:Symptoms->Surveillan ce Narrative Resulting Agency Comment Spec In Lab Campos Schumacher MD MICROBIOLOGY - GENER AL ORDERABLES [facility] [place] [address] * POCT Glucose (11/02/2021 3:35 PM EDT) Glucose, POC 100 65 - 199 mg/dL [facility] Comment: Supplemental ranges: <140 mg/dL before meals <180 mg/dL all other times of the day Blood 11/02/2021 3:35 PM EDT 11/02/2021 3:35 PM EDT Campos Schumacher MD POINT OF CARE TEST O ALYSON Performing Organization Address City/[facility]/ZIP Co de Phone Number [facility] [place] [address] * POCT Glucose (11/02/2021 11:57 AM EDT) Glucose, POC 77 65 - 199 mg/dL [facility] Comment: Supplemental ranges: <140 mg/dL before meals <180 mg/dL all other times of the day Blood 11/02/2021 11:5 7 AM EDT 11/02/2021 11:57 AM EDT Campos Schumacher MD POINT OF CARE TEST O ALYSON Performing Organization Address [facility] Co de Phone Number [facility] [place] [address] * XR Chest PA & Lateral (Generic) [...] questions please contact the health child care provider that requested your imaging first. ? Narrative 11/02/2021 11:12 AM EDT EXAMINATION: XR [...] have questions please contactthe health child care provider that requested your imaging first. Electronically signed by: Tahira Medrano MD, [facility]([phone]), at 11/02/2021 11:12 AM Campos Schumacher MD IMG DX ORDERABLES * POCT Glucose (11/02/2021 7:20 AM EDT) Glucose, POC 97 65 - 199 mg/dL [facility] Comment: Supplemental ranges: <140 mg/dL before meals <180 mg/dL all other times of the day Blood 11/02/2021 7:20 AM EDT 11/02/2021 7:20 AM EDT Campos Schumacher MD POINT OF CARE TEST O RDERABLES Performing Organization Address City/[facility]/ZIP Co de Phone Number [facility] [place] [address] * Duplex Study for DVT, Bilat legs (11/02/2021 7:15 AM EDT) VB Text Report Department: Vascular Surgery Lab Patient: [id number] (JEANNIE RICO) CPT: 34641 Referring Physician: CAMPOS SCHUMACHER ?? Indications: New [...] Schumacher MD VASCULAR ORDERABLES Performing Organization Address [facility]/ZIP Co de Phone Number [facility] * POCT Glucose (11/02/2021 4:02 AM EDT) Glucose, POC 90 65 - 199 mg/dL [facility] Comment: Supplemental ranges: <140 mg/dL before meals <180 mg/dL all other times of the day Blood 11/02/2021 4:02 AM EDT 11/02/2021 4:02 AM EDT Campos Schumacher MD POINT OF CARE TEST O RDLEOBARDO Performing Organization Address [facility] Co de Phone Number [facility] [place] [address] * POCT Glucose (11/01/2021 11:59 PM EDT) Glucose, POC 97 65 - 199 mg/dL [facility] Comment: Supplemental ranges: <140 mg/dL before meals <180 mg/dL all other times of the day Blood 11/01/2021 11:5 9 PM EDT 11/01/2021 11:59 PM EDT Campos Schumacher MD POINT OF CARE TEST O ALYSON Performing Organization Address [facility] Co de Phone Number [facility] [place] [address] * CT Head wo & Multiphase CTA [...] questions please contact the health child care provider that requested your imaging first. ? Electronically signed by: Janie Aguilar MD, [facility] ([phone]), at 11/02/2021 12:47 AM Narrative 11/02/2021 12:47 AM EDT EXAMINATION: CT HEAD WO & MULTIPHASE CTA HEAD/NECK (THROMBECTOMY PROTOCOL) CLINICAL HISTORY: cva sx. neuro feficiets TECHNIQUE: CT of head without intravenous contrast. Multiphase CTA of the carotids and lower elwha of Barclay is performed after the administration [...] dissection. Bilateral vertebral arteries, basilar artery, bilateral special police officer, and bilateral posterior communicating arteries are patent [...] intravenous contrast. Multiphase CTA of the carotidsand lower elwha of Barclay is performed after the administration [...] dissection. Bilateral vertebral arteries, basilar artery, bilateral special police officer, andbilateral posterior communicating arteries are patent without evidence ofhemodynamically significant stenosis, aneurysm or dissection. Diminutive right S7vohveew. No perfusion asymmetry on the delayed phase images. No abnormalenhancement in the head and neck. Globes, orbits, maxillofacial soft tissues, aerodigestive tract, andsuperior mediastinum are within normal limits. Left greater than right dependent atelectasis in lung apices. Multilevel degenerative changes in thespine. Unremarkable appearance of the C5-C6 posterior fusion hardware; overlyingsoft tissue edema and posterior midline skin arite. IMPRESSION CT HEAD WITHOUT CONTRAST: * No [...] have questions please contactthe health child care provider that requested your imaging first. Electronically signed by: Janie Aguilar MD, [facility]([phone]), at 11/02/2021 12:47 AM Campos Schumacher MD IMG CT ORDERABLES * POCT Glucose (11/01/2021 7:50 PM EDT) Glucose, POC 91 65 - 199 mg/dL [facility] Comment: Supplemental ranges: <140 mg/dL before meals <180 mg/dL all other times of the day Blood 11/01/2021 7:50 PM EDT 11/01/2021 7:50 PM EDT Campos Schumacher MD POINT OF CARE TEST O RDERAKE Performing Organization Address City/[facility]/ZIP Co de Phone Number [facility] [place] [address] * POCT Glucose (11/01/2021 4:01 PM EDT) Glucose, POC 110 65 - 199 mg/dL [facility] Comment: Supplemental ranges: <140 mg/dL before meals <180 mg/dL all other times of the day Blood 11/01/2021 4:01 PM EDT 11/01/2021 4:01 PM EDT Campos Schumacher MD POINT OF CARE TEST O JEREMYERAKE [facility] [place] [address] * POCT Glucose (11/01/2021 11:56 AM EDT) Glucose, POC 119 65 - 199 mg/dL [facility] Comment: Supplemental ranges: <140 mg/dL before meals <180 mg/dL all other times of the day Blood 11/01/2021 11:5 6 AM EDT 11/01/2021 11:56 AM EDT Campos Schumacher MD POINT OF CARE TEST O ALYSON Performing Organization Address City/[facility]/ZIP Co de Phone Number [facility] [place] [address] * POCT Glucose (11/01/2021 7:52 AM EDT) Glucose, POC 108 65 - 199 mg/dL [facility] Comment: Supplemental ranges: <140 mg/dL before meals <180 mg/dL all other times of the day Blood 11/01/2021 7:52 AM EDT 11/01/2021 7:52 AM EDT Campos Schumacher MD POINT OF CARE TEST O ALYSON Performing Organization Address City/[facility]/ZIP Co de Phone Number [facility] [place] [address] * POCT Glucose (11/01/2021 3:09 AM EDT) Glucose, POC 117 65 - 199 mg/dL [facility] Comment: Supplemental ranges: <140 mg/dL before meals <180 mg/dL all other times of the day Blood 11/01/2021 3:09 AM EDT 11/01/2021 3:09 AM EDT Campos Schumacher MD POINT OF CARE TEST O ALYSON Performing Organization Address City/[facility] Co de Phone Number [facility] [place] [address] * POCT Glucose (11/01/2021 12:37 AM EDT) Glucose, POC 134 65 - 199 mg/dL [facility] Comment: Supplemental ranges: <140 mg/dL before meals <180 mg/dL all other times of the day Blood 11/01/2021 12:3 7 AM EDT 11/01/2021 12:37 AM EDT Campos Schumacher MD POINT OF CARE TEST O ALYSON Performing Organization Address City/[facility]/ZIP Co de Phone Number [facility] [place] [address] * POCT Glucose (10/31/2021 8:17 PM EDT) Glucose, POC 109 65 - 199 mg/dL [facility] Comment: Supplemental ranges: <140 mg/dL before meals <180 mg/dL all other times of the day Blood 10/31/2021 8:17 PM EDT 10/31/2021 8:17 PM EDT Campos Schumacher MD POINT OF CARE TEST O ALYSON Performing Organization Address [facility]/ZIP Co de Phone Number [facility] [place] [address] * POCT Glucose (10/31/2021 4:16 PM EDT) Glucose, POC 129 65 - 199 mg/dL [facility] Comment: Supplemental ranges: <140 mg/dL before meals <180 mg/dL all other times of the day Blood 10/31/2021 4:16 PM EDT 10/31/2021 4:16 PM EDT Campos Schumacher MD POINT OF CARE TEST O ALYSON Performing Organization Address City/[facility] Co de Phone Number [facility] [place] [address] * (ABNORMAL) pro-Brain Natriuretic Peptide (10/31/2021 12:21 PM EDT) NT-proBNP 428(H) <=124 pg/mL [facility] Blood Venous Draw / Unknown 10/31/2021 12:21 PM EDT 10/31/2021 12:57 PM EDT Narrative Resulting Agency Comment Spec In Lab Cheryl GR CHEMISTRY ORDERAB LES Performing Organization Address [facility] Co de Phone Number [facility] [place] [address] * Troponin (10/31/2021 12:21 PM EDT) [facility] Troponin-T <0.01 0.00 - 0.00 ng/mL [facility] Comment: The 99th percentile for Troponin T is less than 0.01 ng/mL, any detectable cTnT concentration using this assay should be considered elevated. According to the third universal definition of myocardial infarction the following criteria with a clinical presentation consistent with acute myocardial ischemia meets the diagnosis for a myocardial infarction (NE). Detection of a rise and/or fall of cTnT, with at least one value greater than the 99th percentile (> or = 0.01) and with at least one of the following ?? Symptoms of ischemia ?? New or presumed new significant BY-jxainwa-Q wave (ST-T) changes or new left bundle [...] additional sample may be indicated. Reference: Third Prichard Definition of Myocardial Infarction. Journal of the [place] [employer] 2012;60:1581-98 Blood 10/31/2021 12:2 1 PM EDT 10/31/2021 12:32 PM EDT Narrative Resulting Agency Comment Spec In Lab Campos Schumacher MD CHEMISTRY ORDERABLES Performing Organization Address [facility]/ZIP Co de Phone Number [facility] [place] [address] * (ABNORMAL) Basic Metabolic Panel (non-fasting) (10/31/2021 12:21 PM EDT) Glucose 118 65 - 199 mg/dL [facility] Comment:Diabetes: >=200 mg/d L plus symptoms Blood Urea Nitrogen 12 8 - 18 mg/dL [facility] Creatinine 0.74 0.70 - 1.20 mg/dL [facility] Sodium 134(L) 135 - 145 mmol/L [facility] Potassium 4.7 3.5 - 5.0 mmol/L [facility] Comment: Please note: ??Patients with WBC >100,000 may have falsely elevated Potassium levels. ??For accurate Potassium quantification in these patients send serum separator tube (gold top) for subsequent determinations. ??Contact the Clinical Chemistry Laboratory if there are any questions. Chloride 98 98 - 107 mmol/L [facility] Carbon Dioxide 28 22 - 31 mmol/L [facility] Anion Gap 8 5 - 15 mmol/L [facility] Calcium 9.0 8.5 - 10.5 mg/dL [facility] Est Glomerular Filtration Rate 87 >=60 mL/min/1. 73 m?? [facility] Comment: This patient? s estimated [...] In Lab Campos Schumacher MD CHEMISTRY ORDERABLES [facility] [place] [id number] * Phosphorus (10/31/2021 12:21 PM EDT) Phosphorus 4.4 2.5 - 4.5 mg/dL [facility] Blood 10/31/2021 12:2 1 PM EDT 10/31/2021 12:27 PM EDT Narrative Resulting Agency Comment Spec In Lab Campos Schumacher MD CHEMISTRY ORDERABLES Performing Organization Address City/[facility]/ZIP Co de Phone Number [facility] [place] [address] * Magnesium (10/31/2021 12:21 PM EDT) Pathologist [facility] Magnesium 0.78 0.69 - 1.07 mmol/L [facility] Blood 10/31/2021 12:2 1 PM EDT 10/31/2021 12:27 PM EDT Narrative Resulting Agency Comment Spec In Lab Campos Schumacher MD CHEMISTRY ORDERABLES Performing Organization Address City/[facility]/ZIP Co de Phone Number [facility] [place] [address] * EKG 12 Lead (10/31/2021 12:08 PM EDT) Ventricular rate 59 BPM MUSE SYSTEM Atrial Rate 59 BPM MUSE SYSTEM P-R Interval 142 ms MUSE SYSTEM QRS Duration 82 ms MUSE SYSTEM Q-T Interval 408 ms MUSE SYSTEM QTC Calculated (Bezet) 403 ms MUSE SYSTEM Calculated P Bradley 9 degrees MUSE SYSTEM Calculated R Bradley 27 degrees MUSE SYSTEM Calculated T Bradley 11 degrees MUSE SYSTEM INTERPRETATION Sinus bradycardia with sinus arrhythmia Low voltage QRS T wave abnormality, consider anterior ischemia Abnormal ECG When compared with ECG of 07-AUG-2021 10:47, ST no longer elevated in Inferior leads T wave inversion now evident in Anterior leads Confirmed by MD Pendleton Kevin ([id number]) on 11/01/2021 8:56:31 AM MUSE SYSTEM 10/31/2021 12:0 8 PM EDT 11/01/2021 8:56 AM EDT Campos Schumacher MD ECG ORDERABLES MUSE SYSTEM * POCT Glucose (10/31/2021 11:53 AM EDT) Glucose, POC 118 65 - 199 mg/dL [facility] Comment: Supplemental ranges: <140 mg/dL before meals <180 mg/dL all other times of the day Blood 10/31/2021 11:5 3 AM EDT 10/31/2021 11:53 AM EDT Campos Schumacher MD POINT OF CARE TEST O RDERABLES Performing Organization Address City/[facility]/ZIP Co de Phone Number [facility] [place] [address] * (ABNORMAL) Differential, Automated (10/31/2021 8:14 AM EDT) Neutrophil % 85.7 % [facility] Neutrophil Absolute 9.06(H) 1.70 - 6.10 x10(3)/mc L [facility] Lymph % 6.3 % [facility] Lymphocytes Abs 0.7(L) 0.9 - 3.2 x10(3)/mc L [facility] Monocyte % 7.1 % [facility] Monocyte Abs 0.8 0.3 - 0.9 x10(3)/mc L [facility] Eos % 0.2 % [facility] Eosinophils Abs 0.0 0.0 - 0.4 x10(3)/mc L [facility] Basophil % 0.3 % [facility] Baso Absolute 0.0 0.0 - 0.1 x10(3)/mc L [facility] Immature Gran % 0.40 % [facility] Comment: Immature granulocytes(IG's)percentage and absolute count will include metamyelocytes, myelocytes, and promyelocytes. Blood smears from CBCs yielding IG's will be scanned manually for concordance. If this scan disagrees with the automated IG or if promyelocytes are noted, a manual differential will be performed. Immature Gran Absolute 0.04 0.00 - 0.04 x10(3)/ L [facility] Blood 10/31/2021 8:14 AM EDT 10/31/2021 8:47 AM EDT Narrative Resulting Agency Comment Spec In Lab Melania Gaxiola MD HEMATOLOGY ORDERAB LES [facility] [place] [address] * (ABNORMAL) Hemogram (10/31/2021 8:14 AM EDT) White Blood Cell 10.6(H) 4.0 - 9.5 x10(3)/[facility] Red Blood Cell 4.26 4.00 - 5.21 x10(6)/[facility] Hemoglobin 13.0 11.7 - 15.5 g/dL [facility] Hematocrit 40.9 35.7 - 45.8 % [facility] Mean Cell Volume 96.0(H) 82.6 - 94.4 fL [facility] Mean Cell Hemoglobin 30.5 27.1 - 32.0 pg [facility] Mean Cell Hemoglobin Concentration 31.8 31.7 - 35.0 g/dL [facility] Platelet 210 145 - 357 x10(3)/ L [facility] RDW Standard Deviation 47.4(H) 37.0 - 46.0 [facility] RDW coefficient of variation 13.2 11.5 - 14.1 % [facility] Mean Platelet Volume 9.8 7.6 - 12.9 [facility] NRBC% auto 0.0 % [facility] NRBC Absolute 0.000 0.000 - 0.000 x10(3)/ L [facility] Blood 10/31/2021 8:14 AM EDT 10/31/2021 8:47 AM EDT Narrative Resulting Agency Comment Spec In Lab Melania Gaxiola MD HEMATOLOGY ORDERAB LES [facility] [place] [address] * POCT Glucose (10/31/2021 7:50 AM EDT) Glucose, POC 111 65 - 199 mg/dL [facility] Comment: Supplemental ranges: <140 mg/dL before meals <180 mg/dL all other times of the day Blood 10/31/2021 7:50 AM EDT 10/31/2021 7:50 AM EDT Campos Schumacher MD POINT OF CARE TEST O RDERAKE Performing Organization Address [facility]/ZIP Co de Phone Number [facility] [place] [address] * POCT Glucose (10/31/2021 5:36 AM EDT) Glucose, POC 116 65 - 199 mg/dL [facility] Comment: Supplemental ranges: <140 mg/dL before meals <180 mg/dL all other times of the day Blood 10/31/2021 5:36 AM EDT 10/31/2021 5:36 AM EDT Campos Schumacher MD POINT OF CARE TEST O ALYSON Performing Organization Address City/[facility]/ZIP Co de Phone Number [facility] [place] [address] * POCT Glucose (10/30/2021 11:28 PM EDT) Glucose, POC 119 65 - 199 mg/dL [facility] Comment: Supplemental ranges: <140 mg/dL before meals <180 mg/dL all other times of the day Blood 10/30/2021 11:2 8 PM EDT 10/30/2021 11:28 PM EDT Campos Schumacher MD POINT OF CARE TEST O RDERAKE Performing Organization Address [facility] Co de Phone Number [facility] [place] [address] * POCT Glucose (10/30/2021 7:50 PM EDT) Glucose, POC 142 65 - 199 mg/dL [facility] Comment: Supplemental ranges: <140 mg/dL before meals <180 mg/dL all other times of the day Blood 10/30/2021 7:50 PM EDT 10/30/2021 7:50 PM EDT Campos Schumacher MD POINT OF CARE TEST O ALYSON Performing Organization Address [facility] Co de Phone Number [facility] [place] [address] * XR Cervical Spine 2 or 3 [...] questions please contact the health child care provider that requested your imaging first. ? Narrative [...] have questions please contactthe health child care provider that requested your imaging first. Electronically signed by: YANET GANN [facility] ([phone]),at 10/31/2021 10:23 AM Campos Schumacher MD IMG DX ORDERABLES * POCT Glucose (10/30/2021 3:17 PM EDT) Glucose, POC 103 65 - 199 mg/dL [facility] Comment: Supplemental ranges: <140 mg/dL before meals <180 mg/dL all other times of the day Blood 10/30/2021 3:17 PM EDT 10/30/2021 3:17 PM EDT Campos Schumacher MD POINT OF CARE TEST O ALYSON Performing Organization Address [facility] de Phone Number [facility] [place] [address] * XR Fluoro No Rad <1Hr - OR Use (10/30/2021 1:30 PM EDT) Narrative Dicom, Auditing User - 10/30/2021 2:07 PM EDT This exam is auto-finalizing. No interpretation was done. Campos Schumacher MD IMG FLUORO ORDERABLE S * POCT Glucose (10/30/2021 8:11 AM EDT) Glucose, POC 110 65 - 199 mg/dL [facility] Comment: Supplemental ranges: <140 mg/dL before meals <180 mg/dL all other times of the day Blood 10/30/2021 8:11 AM EDT 10/30/2021 8:11 AM EDT Campos Schumacher MD POINT OF CARE TEST O ALYSON Performing Organization Address [facility] de Phone Number [facility] [place] [address] documented in this encounter Visit Diagnoses Diagnosis [...] (Symbicort) 160-4.5 mcg/actuation inhaler 2 Inhalation 2 .Inhalation , Inhalation, 2 TIMES DAILY, First dose on Tue11/02/21 at 1100, Until Discontinued Given 11/04/2021 9:00 AM EDT 2 .Inhalation Given 11/03/2021 8:11 PM EDT 2 .Inhalation Given 11/03/2021 9:14 AM EDT 2 .Inhalation ceFAZolin (Ancef) 1 g vial attached to [...] ONCE, 1 dose, On Tue11/03/21 at 0745 Given 11/03/2021 9:09 AM EDT [...] (5 mL), Subcutaneous, ONCE, 1 dose, On Tue10/31/21 at 1215, Routine Given 10/31/2021 11:40 AM EDT 50 mg lisinopriL (Zestril) tablet 40 mg 40 mg, Oral, DAILY, First dose on Tue10/31/21 at 0900, Until Discontinued, Routine Given 11/04/2021 [...] Byers, FABIANA) 0505 (Given - Provider: David Byers RN)1324 [...] Roberts RN) 0909 (Given - Provider: Kanu Roberts RN) atorvastatin (Lipitor) tablet 40 mg 40 mg, Oral, DAILY, First dose on Tue10/31/21 at 0900, Until Discontinued, Routine 1749 (Given - Provider: Sarah Hanson RN) 1801 (Given - Provider: Ana Damian) budesonide-formoteroL (Symbicort) 160-4.5 mcg/actuation inhaler 2 Inhalation 2 .Inhalation , Inhalation, 2 TIMES DAILY, First dose on Tue11/02/21 at 1100, Until Discontinued 1156 (Given - Provider: Sarah Hanson RN)2020 (Given - Provider: David Byers RN) 0914 (Given - Provider: Ana Damian)2010 (Given - Provider: David Byers RN) 0900 (Given - Provider: Kanu Roberts RN) furosemide (Lasix) (10 mg/mL) injection 20 mg [...] Byers RN) 0909 (Given - Provider: Kanu Roberts RN)1500 (Due) heparin (porcine) (5,000 units/1 mL) subcutaneous injection 5,000 Units 5,000 Units, Subcutaneous, EVERY 12 HOURS SCHEDULED (2 times per day), First dose on Tue11/01/21 at 0930, Until Discontinued, Routine 09 (Given - Provider: Sarah Hanson, FABIANA)2021 (Given - Provider: David Byers, FABIANA) 911 (Given - Provider: Ana Damian)2011 (Given - Provider: David Byers, FABIANA) 0916 (Given - Provider: Kanu Roberts, FABIANA) [...] 0534 (Given - Provider: David Byers RN) 050 (Given - Provider: David Byers RN) lidocaine [...] 902 (Given - Provider: Sarah Hanson RN) 910 (Given - Provider: Ana Damian) 911 (Given - Provider: Kanu Roberts, FABIANA) pantoprazole EC (Protonix) tablet 40 mg 40 mg, Oral, DAILY, First dose on 10/31/21 at 0900, Until Discontinued 901 (Given - Provider: Sarah Hanson RN) 09 (Given - Provider: Ana Damian) 09 (Given - Provider: Kanu Roberts RN) prazosin (Minipress) capsule 6 mg 6 mg, [...] RN)2015 (Given - Provider: David Byers RN) 09 (Given - Provider: Ana Damian)2006 (Given - Provider: David Byers RN) 0911 (Given - Provider: Kanu Roberts, FABIANA) sertraline [...] 2011 (Given - Provider: David Byers RN) 0916 (Given - Provider: Kanu Roberts RN) tiotropium [...] receiving this medication as a nebulizer? Yes 0908 (Given - Provider: Kanu Roberts RN) bisacodyL [...] PRN, Starting on 10/31/21 at 1407, Until Tue11/02/21 at 1221, Pain, Routine 0904 (Given - [...] Routine documented in this encounter Care Teams Die Stamper Relationship Specialty Start Date End Date Hoang Castellanos, NEW ACCOUNTS BANKING REPRESENTATIVE [address] [place] [address] PCP - General Family Medicine 03/12/20 documented as of this encounter
--- OUTSIDE RECORDS SUMMARY | 2024-08-01 18:31 | XMS_ITS | Encounter Summary ---
Author Organization [facility] Address [facility] [place] [address] Care Team Providers Care Package Yarns Drying Machine Operator Name Role Phone Hoang Castellanos APRN Primary Care Provider Encounter Details Date Type Department Care Team (Late st Contact Info) Description 12/14/2021 9:45 AM EDT Home Care Visit [facility] [address] [place] [phone] Jolly Haddad LNA AIDE HOME VISIT [...] Status Goals Interve ntions Personal Care Disciplines: CARPET JOURNEYMAN Aide to assist patient with personal cares as directed. 11/26/2021 Active 1 goal linked to scheduled/documen leela intervention 6 goal interventions scheduled/document ed in this visit Activity Disciplines: CARPET JOURNEYMAN Aide to assist patient activity tasks as [...] by aide as ordered Completed Transfers Description: CARPET JOURNEYMAN assist with transfers using Tub chair with extension Problem:Activity Goal:Patient activity needs will be completed by aide as ordered Completed Assist with Ambulation Description: CARPET JOURNEYMAN assist with ambulation using walker or wheelchair Problem:Activity Goal:Patient activity needs will be completed by aide as ordered Completed Assist Repositioning Description: Assist with repositioning patient. Problem:Activity Goal:Patient activity needs will be completed by aide as ordered Completed documented in this encounter Care Teams Package Yarns Drying Machine Operator Relationship Specialty Start Date End Date Hoang Castellanos, JOINERY SETTER OUT [address] [place] [place] [address] PCP - General Family Medicine 03/12/20 documented as of this encounter
--- OUTSIDE RECORDS SUMMARY | 2024-08-01 18:31 | XMS_ITS | Encounter Summary ---
Author Organization [facility] Address [facility] [address] Care Team Providers Care Document Control Clerk Name Role Phone Hoang Castellanos APRN Primary Care Provider Encounter Details Date Type Department Care Team (Late st Contact Info) Description 12/12/2021 3:00 PM EDT Home Care Visit [facility] [address] [place] [phone] Dhruv Balderrama, PT PT HOME VISIT [...] exercise documented in this encounter Care Teams Document Control Clerk Relationship Specialty Start Date End Date Hoang Castellanos, WEB PRODUCTION DESIGNER [address] [place] [address] PCP - General Family Medicine 03/12/20 documented as of this encounter
--- OUTSIDE RECORDS SUMMARY | 2024-08-01 18:31 | XMS_ITS | Encounter Summary ---
Author Organization [facility] [place] [address] Care Team Providers Care Nuclear Engineer Name Role Phone Hoang Castellanos APRN Primary Care Provider [phone] Encounter Details Date Type Department Care Team (Late st Contact Info) Description 11/26/2021 Telephone Primary Care at [facility] [place] [phone] Jeannie Luciano, RN Social History Tobacco Use [...] send notes and any further ? call [phone] Message received from Raven at [facility]. 1)any sutures can be removed at [...] PM EDT Message received from Paige at [facility] calling back to discuss. Tried to [...] Message received from Bárbara Morfin RN with [facility] that she admitted Jeannie to services today but she had questions about 1)suture removal--she knows there were artie removed but said Jeannie still has sutures and they weren't sure when they needed to be removed 2)questions about hospital bed 3) questions about O2. Reviewed the d/c summary from [facility] and there was nothing noted about sutures, nothing noted about her positional needs for hospital bed and according to the D/C summary, respiratory therapy at [facility] was ordering an overnight oximetry while she was admitted and they would order the O2. We have not received notes from the overnight oximetry and those will be needed per Medicare guidelines. Call placed to [facility] asking for more information; awaiting call back. documented in this encounter Plan of Treatment Not on file documented as of this encounter Visit Diagnoses Not on filedocumented in this encounter Care Teams Nuclear Engineer Relationship Specialty Start Date End Date Hoang Castellanos, SHAFT MECHANIC [address] [place] [address] PCP - General Family Medicine 03/12/20 documented as of this encounter
--- OUTSIDE RECORDS SUMMARY | 2024-08-01 18:31 | XMS_ITS | Encounter Summary ---
[place] [address] Care Team Providers Care Certified Histologic Technician Name Role Phone Hoang Castellanos APRN Primary Care Provider Encounter Details Date Type Department Care Team (Late st Contact Info) Description 11/04/2021 [place] [phone] Chikis Orourke Social History Tobacco Use Types [...] - 11/04/2021 1:54 PM EDT Monique from [facility] calling to advise potential interaction between tramadol prescribed and Viibryd, please call to approve script or change medications documented in this encounter Plan of Treatment Not on file documented as of this encounter Visit Diagnoses Not on filedocumented in this encounter Care Teams Certified Histologic Technician Relationship Specialty Start Date End Date Hoang Castellanos, SCULPTURE INSTRUCTOR [address] [place] [address] PCP - General Family Medicine 03/12/20 documented as of this encounter
--- OUTSIDE RECORDS SUMMARY | 2024-08-01 18:32 | XMS_ITS | Encounter Summary ---
Author Organization [facility] Address [facility] [place] [address] Care Team Providers Care Wirer Name Role Phone Hoang Castellanos APRN Primary Care Provider [phone] Reason for Visit * Reason Onset Date Comments Medication Refill 09/28/2021 Encounter Details Date Type Department Care Team (Late st Contact Info) Description 09/28/2021 Refill Primary Care at [facility] [address] [facility] [place] [address] Hoang Castellanos APRN [address] [place] [address] Social History Tobacco Use Types Packs/Day Years [...] on filedocumented in this encounter Care Teams Wirer Relationship Specialty Start Date End Date Hoang Castellanos, MOTION DESIGNER [address] [place] [address] PCP - General Family Medicine 03/12/20 documented as of this encounter
--- OUTSIDE RECORDS SUMMARY | 2024-08-01 18:32 | XMS_ITS | Encounter Summary ---
[place] [address] Care Team Providers Care Check Inspector Name Role Phone Hoang Castellanos APRN Primary Care Provider Encounter Details Date Type Department Care Team (Late st Contact Info) Description 07/07/2021 Telephone [place] [phone] Chikis Orourke Social History Tobacco Use Types [...] Caller: Patient Best number to reach caller: [phone] Reason for call: Patient asking for next [...] on filedocumented in this encounter Care Teams Check Inspector Relationship Specialty Start Date End Date Hoang Castellanos, SALAD COUNTER ATTENDANT [address] [place] [address] PCP - General Family Medicine 03/12/20 documented as of this encounter
--- OUTSIDE RECORDS SUMMARY | 2024-08-01 18:32 | XMS_ITS | Encounter Summary ---
Author Organization [facility] [place] [address] Care Team Providers Care Buckle Assembler Name Role Phone Hoang Castellanos APRN [...] Expiration Date Visits Re quested Visits Authorized [id number] 1 1 Encounter Details Date Type Department Care Team (Latest Contact Info) Description 10/27/2021 10:30 AM EDT [place] [address] Encounter for preprocedure screening laboratory testing for [...] EDT) SARS-CoV-2 RNA Not Detected Not Detected [facility] Comment: This result should be [...] diagnosis of COVID-19 is performed using the [employer] m SARS-CoV-2 Assay as authorized by the FDA Emergency Use Authorization (EUA). This EUA assay is intended for In-vitro Diagnostic (IVD) use with respiratory specimens such as nasopharyngeal swabs collected from individuals during the acute phase of infection. This assay is performed based on the instructions for use provided by [employer] and additional guidance provided by CDC and FDA. Testing is performed in the [facility] Laboratory within the Department of Pathology and Laboratory Medicine at [facility], certified under the Clinical Laboratory Improvement Amendments [...] fact sheets at the following FDA website: https://www.fda.gov/medical-devices/fjertgotbbl-wbvsjhz-0469-hwnev-92-pbsgpgspk- use-a whhlrumrbxcdm-onnbefs-vxrpiat/cphox-coiflyvjrrp-bdjy SARS-CoV-2 RNA Source MANAGER OF HUMAN RESOURCES Swab [facility] Nasopharyngeal Swab 10/28/19 11:32 AM EDT 10/27/2021 11:32 AM EDT Comment:Symptoms->Asymptomat ic Narrative Resulting Agency Comment Spec In Lab Campos Puente MD MOLECULAR ORDERABLES [facility] [place] [address] documented in this encounter Visit Diagnoses Diagnosis Encounter for preprocedure screening laboratory testing for COVID-19 documented in this encounter Care Teams Buckle Assembler Relationship Specialty Start Date End Date Hoang Castellanos APRN [address] [place] [address] PCP - General Family Medicine 03/12/20 documented as of this encounter
--- OUTSIDE RECORDS SUMMARY | 2024-08-01 18:32 | XMS_ITS | Encounter Summary ---
Author Organization [facility] Address [facility] [place] [address] Care Team Providers Care Pump Stitcher Name Role Phone Hoang Castellanos APRN Primary [...] Expiration Date Visits Re quested Visits Authorized [id number] 1 1 Encounter Details Date Type Department Care Team (Late st Contact Info) Description 10/30/2021 8:45 AM EDT Anesthesia Event [place] [address] [facility] [place] [address] Evelia Dickerson [place] [address] Anesthesia Record Procedure Summary Procedure Name Responsible [...] 08; median cubital vein (antecubital fossa), left; xdtl-mlh-zbqqhj catheter system; Anatomical Landmarks; US Not Used; [...] 0916; metacarpal vein (top of hand), right; dwtv-leq-rhhuhf catheter system; Anatomical Landmarks; 20 gauge; Leblanc MD; LDA not present upon assessment; 10/31/21; 1717 10/30/21 0916 by Shan Wheeler, APPLICATIONS SALES CONSULTANT 10/31/21 1717 by Leila Sanchez RN Arterial Line 10/30/21; 0923; radi al artery, right; 20 gauge; Guidewire, Anatomical Landmarks; continuous blood pressure monitoring; MD Deana; Sterile Prep, Sterile Gloves; 10/30/21; 19310/30/21 0923 by Shan Wheeler, APPLICATIONS SALES CONSULTANT 10/30/21 193 by Anna Cesar RN (RETIRED) Peripheral IV Line - Single Lumen 10/30/21; 0933; great saphenous vein (medial side of leg), right; ktcy-uvg-lbzgwi catheter system; Anatomical Landmarks; 18 gauge; S.Liam, APPLICATIONS SALES CONSULTANT; 10/30/21; 1513 10/30/21 0933 by Shan Wheeler, APPLICATIONS SALES CONSULTANT 10/30/21 1513 by Tom Hernandez RN Incision [...] Procedure Summary Date: 10/30/21 Room / Location: [facility] OR [address] [place] [id number] MAIN OR Anesthesia Start: 844 Anesthesia Stop: [...] All Anesthesia Providers: Anesthesiologist: Pat Leblanc MD APPLICATIONS SALES CONSULTANT: Shan Wheeler CRNA Vitals Value Taken Time BP 177/97 10/30/21 1632 Temp 36.3 ??C (97.3 ??F) 10/30/21 1515 Pulse 69 10/30/21 1646 Resp 19 10/30/21 1646 SpO2 97 % 10/30/21 1649 Pain Level 5 10/30/21 1620 Vitals shown include unvalidated device data. Patient Location: PACU/[facility] Level of Consciousness: Conscious but Sleepy [...] RS Psychiatry ??? Osteoporosis DEXA done at [facility] on 10/29/15: osteoporosis at the left [...] BIOPSY performed by Ken Sanders MD at [facility] ENDOSCOPY ??? PRO UPPER GI ENDOSCOPY, BIOPSY N/A 09/19/2018 UPPER GASTROINTESTINAL ENDOSCOPY,WITH BIOPSY SINGLE OR MULTIPLE (WRVU 2.49) performed by Tyron Mercado MD at [facility] ENDOSCOPY ??? TONSILLECTOMY ??? UPPER GI ENDOSCOPY, EXAM 12/04/2010 UPPER GI ENDOSCOPY performed by DEE WRIGHT at [facility] ENDOSCOPY Social History Tobacco Use ??? [...] risks discussed with patient. Plan discussed with APPLICATIONS SALES CONSULTANT. Anesthesia Screening Note: Date and Time of [...] is normal. ASSESSMENT: Jeannie presented to the [facility] clinic today with her rig site engineer Angela to discuss anesthesia for her upcoming cervical spine decompression. She has a history of CAD requiring coronary angioplasty with stent placement. She denies chest pain or lightheadedness. She had an echocardiogram in December which showed an EF of 65%, no significant valve disease. A stress test was performed in [facility] of this year which was normal. Patient [...] mg documented in this encounter Care Teams Pump Stitcher Relationship Specialty Start Date End Date Hoang Castellanos, KILN TENDER [address] [place] [address] PCP - General Family Medicine 03/12/20 documented as of this encounter
--- OUTSIDE RECORDS SUMMARY | 2024-08-01 18:32 | XMS_ITS | Encounter Summary ---
Author Organization [facility] Address [facility] [place] [address] Care Team Providers Care Patient Access Coordinator Name Role Phone Hoang Castellanos APRN Primary Care Provider Encounter Details Date Type Department Care Team (Late st Contact Info) Description 10/29/2021 Telephone [place] [address] Campos Puente MD [facility] [address] [place] [phone] Social History Tobacco Use Types Packs/Day Years [...] filedocumented in this encounter Care Teams Patient Access Coordinator Relationship Specialty Start Date End Date Hoang Castellanos, CREW CAR DRIVER [address] [place] [address] PCP - General Family Medicine 03/12/20 documented as of this encounter
--- OUTSIDE RECORDS SUMMARY | 2024-08-01 18:32 | XMS_ITS | Encounter Summary ---
Author Organization [facility] [address] Care Team Providers Care Counseling Department Chair Name Role Phone Hoang Castellanos APRN Primary Care Provider Reason for Visit * Reason Comments Medication Refill Encounter Details Date Type Department Care Team (Late st Contact Info) Description 09/28/2021 Refill Primary Care at [facility] [address] [place] [phone] Hoang Castellanos APRN [address] [facility] [place] [address] Social History Tobacco Use Types Packs/Day Years [...] * Telephone Encounter - Maria D Joshi [facility] - 09/28/2021 1:19 PM EST Medication [...] on filedocumented in this encounter Care Teams Counseling Department Chair Relationship Specialty Start Date End Date Hoang Castellanos, MOLD CAPPER HELPER [address] [place] [address] PCP - General Family Medicine 03/12/20 documented as of this encounter
--- OUTSIDE RECORDS SUMMARY | 2024-08-01 18:32 | XMS_ITS | Encounter Summary ---
[place] [address] Care Team Providers Care Land Title Examiner Name Role Phone Hoang Castellanos APRN Primary Care Provider Reason for Referral * Psychiatric (Urgent) - Closed Specialty Diagnoses / Procedures Referred By Contac t Referred To Contact Psychiatry Diagnoses Syncope, unspecified syncope type Cornelio Rosado MD [facility] [place] [address] [facility] Psychiatry [address] [place] [address] Referral ID Status Reason Start Date Expiration Date V isits Requested Visits Authorized [id number] Closed Consult, Test & Treat 08/07/2021 08/07/2022 1 1 Reason for Visit * Reason Comments Chest Pain Encounter Details Date Type Department Care Team (Late st Contact Info) Description 08/07/2021 10:46 AM EST - 08/07/2021 4:16 PM EST [place] [phone] Xander Reese MD [facility] [place] [address] Syncope, unspecified syncope type Discharge [...] APD 12/22/2021 9:45 AM Michael Espinoza MD [facility] ENDO [facility] PCP: Hoang Castellanos APRN at [phone] Your Doctor(s) at [facility]: Xander Reese MD - Attending physician Cornelio [...] Sustained Release 24 hrIndications: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 90 tablet 5 03/04/2020 11/04/2021 sertraline (ZOLOFT) 100 mg Tablet Take 2 [...] needed for Pain. 45 tablet 11/04/2021 12/01/2021 cholecalciferol, Vitamin D3, (Vitamin D3) 1,000 unit Tablet Take 3 tabs daily 270 tablet 3 06/22/2021 05/10/2022 calcium citrate (Calcitrate) 200 mg (950 mg) Tablet Take 2 tabs three times daily 540 tablet 3 06/22/2021 05/10/2022 tiZANidine (Zanaflex) 4 mg TabletIndications:Cervi calgia,Chronic pain syndrome Take 1 tablet by mouth every 6 hours as needed. 30 tablet 3 06/16/2021 09/14/2021 lamoTRIgine (LaMICtal) 200 mg Tablet TAKE ONE [...] [place] MSW - 08/07/2021 3:17 PM EST USED CAR RENOVATOR went to speak with pt. Jeannie reported [...] feeling some relief being in ADM room. USED CAR RENOVATOR assisted pt in called her outpatient SARIKA Miller ([phone]). SARIKA Miller stated she was working remote today and would not be able to come get Jeannie to bring her home. She did say she would speak to her coworkers/supervisor cytology to determine if someone could provide transportation for the pt to get home. USED CAR RENOVATOR spoke to pt who reported that she had been experiencing a pinched nerve in her neck which has affected her arm and leg on the left side. She discussed having PTSD and 'mental health' problems, but did not go into detail. SARIKA Miller suggested a psych eval, which pt was open to. USED CAR RENOVATOR made medical team aware of pt's/CM concerns. USED CAR RENOVATOR also alerted team that pt was very hungry. RN to bring pt food. SARIKA Miller called USED CAR RENOVATOR, who handed phone to . stated he could put in emergency psych consult. SARIKA stated she could have a ride for pt if she was able to discharge by 4pm. USED CAR RENOVATOR inquired with team who will put discharge orders in now. USED CAR RENOVATOR confirmed with Angela that worker Roberto Carlos would pick pt up from the ED entrance at 4pm today. USED CAR RENOVATOR will relay that to pt and medical team. Nohemi Washington USED CAR RENOVATOR Emergency Department Marriage Counselor Minister [phone] Pager: [phone] documented in this encounter ED Notes * Cornelio Rosado MD - 08/07/2021 11:29 AM EST ED PROVIDER NOTE Patient: Jeannie Rico Age (): 61 y.o. (1960) SUBJECTIVE CC: Chief Complaint Patient presents with ??? Chest Pain HPI: Jeannie Rico is a 61 y.o. female with PMH significant for asthma, diabetes, hypertension, hyperlipidemia, prior NV (PCI to prox and mid LAD, 2012) [...] who have questions please contact the health field care coordinator that requested your imaging first. - I have reviewed the EKG, which is significant for: afib ASSESSMENT & PLAN MDM: Jeannie Rico is a 61 y.o. female with past medical history of prior NV as well as cervical myelopathy who presents after a syncopal event. In the emergency department she was hemodynamically stable (chronically bradycardic) with appropriate mentation. Physical exam unremarkable. Bedside ultrasound demonstrates wall motion normalities which are not favored to be new given prior NV and nonischemic EKG. Patient did not have a positive delta troponin. Rest of lab work including BMP, CBC and headCT unremarkable. Patient's psychotherapist social worker reached out to [facility] ED social work for psychiatric evaluation given recent stress. Outside psychotherapist social worker describes increased distress due to housing insecurity as well as pending surgery for cervical process. In the emergency department she denied SI or HI and was mentating a ppropriately and preferred urgent referral to outpatient psychiatry. This MD spoke with outpatient tying machine operator lumber and confirmed no statements of SI or HI. Urgent referral to psychiatry placed. PLAN: Patient will be discharged home, urgent referral to psychiatry placed Cornelio Rosado MD Resident 08/07/21 0266 Associated attestation - Xander Reese MD - [...] received message from social work that her tying machine operator lumber was in touch with her and concern. We asked the patient who described having increasing PTSD and being in the trauma bay on her initial presentation but didnot feel overtly homicidal or suicidal. Dr. Rosado also discussed the case with her outpatient tying machine operator lumber. Assessment: Syncope without findings of intracranial hemorrhage, [...] 08/07/2021 11:00 AM EST BASIC METABOLIC PANEL STAT 08/07/2021 11:00 AM EST EKG 12-LEAD STAT 08/07/2021 10:47 AM EST documented in this encounter Results * Troponin (08/07/2021 1:49 PM EST) Troponin-T <0.01 0.00 - 0.00 ng/mL [facility] Comment: The 99th percentile for Troponin T is less than 0.01 ng/mL, any detectable cTnT concentration using this assay should be considered elevated. According to the third universal definition of myocardial infarction the following criteria with a clinical presentation consistent with acute myocardial ischemia meets the diagnosis for a myocardial infarction (NV). Detection of a rise and/or fall of cTnT, with at least one value greater than the 99th percentile (> or = 0.01) and with at least one of the following ?? Symptoms of ischemia ?? New or presumed new significant PO-ydwwtwh-B wave (ST-T) changes or new left bundle [...] additional sample may be indicated. Reference: Third [place] Definition of Myocardial Infarction. Journal of the [employer] [place] College of Cardiology 2012;60:1581-98 Blood 08/07/2021 1:49 PM EST 08/07/2021 2:01 PM EST Narrative Resulting Agency Comment Spec In Lab Xander Reese MD CHEMISTRY ORDERABL ES [facility] [place] [address] * CT Head wo Contrast (Generic) (08/07/2021 [...] who have questions please contact the health field care coordinator that requested your imaging first. ? Narrative 08/07/2021 11:41 AM EST EXAMINATION: CT [...] patients who have questions please contactthe health field care coordinator that requested your imaging first. Xander Reese MD IMG CT ORDERABLES * Blue Tube HOLD (08/07/2021 11:00 AM EST) Pathologist [facility] Blue Hold Sample in lab. [facility] Blood Venous Draw / Unknown 08/07/2021 11:00 AM EST 08/07/2021 11:14 AM EST Cornelio Rosado MD HEMATOLOGY OR DERABLES [facility] [place] [address] * Differential, Automated (08/07/2021 11:00 AM EST) Pathologist [facility] Neutrophil % 62.7 % [facility] Neutrophil Absolute 4.25 1.70 - 6.10 x10(3)/[facility] Lymph % 26.0 % [facility] Lymphocytes Abs 1.8 0.9 - 3.2 x10(3)/[facility] Monocyte % 8.8 % [facility] Monocyte Abs 0.6 0.3 - 0.9 x10(3)/[facility] Eos % 0.9 % [facility] Eosinophils Abs 0.1 0.0 - 0.4 x10(3)/[facility] Basophil % 1.2 % [facility] Baso Absolute 0.1 0.0 - 0.1 x10(3)/[facility] Immature Gran % 0.40 % [facility] Comment: Immature granulocytes(IG's)percentage and absolute count will include metamyelocytes, myelocytes, and promyelocytes. Blood smears from CBCs yielding IG's will be scanned manually for concordance. If this scan disagrees with the automated IG or if promyelocytes are noted, a manual differential will be performed. Immature Gran Absolute 0.03 0.00 - 0.04 x10(3)/mcL [facility] Blood 08/07/2021 11:0 0 AM EST 08/07/2021 11:14 AM EST Narrative Resulting Agency Comment Spec In Lab Cornelio Rosado MD HEMATOLOGY OR DERABLES Performing Organization Address City/State/[facility] Co de Phone Number [facility] [place] [address] * (ABNORMAL) Hemogram (08/07/2021 11:00 AM EST) White Blood Cell 6.8 4.0 - 9.5 x10(3)/[facility] Red Blood Cell 4.85 4.00 - 5.21 x10(6)/[facility] Hemoglobin 14.7 11.7 - 15.5 g/dL [facility] Hematocrit 45.7 35.7 - 45.8 % [facility] Mean Cell Volume 94.2 82.6 - 94.[address] [facility] Mean Cell Hemoglobin 30.3 27.1 - 32.[address] [facility] Mean Cell Hemoglobin Concentration 32.2 31.7 - 35.0 g/dL [facility] Platelet 215 145 - 357 x10(3)/[facility] RDW Standard Deviation 46.5(H) 37.0 - 46.0 [facility] RDW coefficient of variation 13.2 11.5 - 14.1 % [facility] Mean Platelet Volume 10.1 7.6 - 12.9 [facility] NRBC% auto 0.0 % [facility] NRBC Absolute 0.000 0.000 - 0.000 x10(3)/ L [facility] Blood 08/07/2021 11:0 0 AM EST 08/07/2021 11:14 AM EST Narrative Resulting Agency Comment Spec In Lab Cornelio Rosado MD HEMATOLOGY OR DERABLES [facility] [place] [address] * (ABNORMAL) Basic Metabolic Panel (non-fasting) (08/07/2021 11:00 AM EST) Glucose 93 65 - 199 mg/dL [facility] Comment:Diabetes: >=200 mg/d L plus symptoms Blood Urea Nitrogen 19(H) 8 - 18 mg/dL [facility] Creatinine 0.91 0.70 - 1.20 mg/dL [facility] Sodium 138 135 - 145 mmol/L [facility] Potassium 4.4 3.5 - 5.0 mmol/L [facility] Comment: Please note: ??Patients with WBC >100,000 may have falsely elevated Potassium levels. ??For accurate Potassium quantification in these patients send serum separator tube (gold top) for subsequent determinations. ??Contact the Clinical Chemistry Laboratory if there are any questions. Chloride 100 98 - 107 mmol/L [facility] Carbon Dioxide 28 22 - 31 mmol/L [facility] Anion Gap 10 5 - 15 mmol/L [facility] Calcium 10.1 8.5 - 10.5 mg/dL [facility] Est Glomerular Filtration Rate 68 >=60 mL/min/1. 73 m?? [facility] [...] MD CHEMISTRY ORDERABL ES Performing Organization Address [facility] Co de Phone Number [facility] [place] [address] * Troponin (08/07/2021 11:00 AM EST) Troponin-T <0.01 0.00 - 0.00 ng/mL [facility] Comment: The 99th percentile for Troponin T is less than 0.01 ng/mL, any detectable cTnT concentration using this assay should be considered elevated. According to the third universal definition of myocardial infarction the following criteria with a clinical presentation consistent with acute myocardial ischemia meets the diagnosis for a myocardial infarction (NV). Detection of a rise and/or fall of cTnT, with at least one value greater than the 99th percentile (> or = 0.01) and with at least one of the following ?? Symptoms of ischemia ?? New or presumed new significant YE-cctnipm-Q wave (ST-T) changes or new left bundle [...] additional sample may be indicated. Reference: Third [place] Definition of Myocardial Infarction. Journal of the [place] College of Cardiology 2012;60:1581-98 Blood 08/07/2021 11:0 0 AM EST 08/07/2021 11:14 AM EST Narrative Resulting Agency Comment Spec In Lab Xander Reese MD CHEMISTRY ORDERABL ES Performing Organization Address City/[facility]/ZIP Co de Phone Number [facility] [place] [address] * EKG 12 Lead (08/07/2021 10:47 AM EST) Ventricular rate 46 BPM MUSE SYSTEM Atrial Rate 46 BPM MUSE SYSTEM P-R Interval 126 ms MUSE SYSTEM QRS Duration 76 ms MUSE SYSTEM Q-T Interval 448 ms MUSE SYSTEM QTC Calculated (Bezet) 392 ms MUSE SYSTEM Calculated P [place] 43 degrees MUSE SYSTEM Calculated R [place] 62 degrees MUSE SYSTEM Calculated T [place] 42 degrees MUSE SYSTEM INTERPRETATION Sinus bradycardia Otherwise normal ECG When compared with ECG of 08-SEP-2018 19:26, No significant change was found I personally reviewed the tracing and edited the fellows interpretation Confirmed by fellow Trenton Cloud ([id number]) on 08/08/2021 12:29:27 PM Confirmed by Tabitha Aguilar ([id number]) on 08/08/2021 1:45:23 PM MUSE SYSTEM 08/07/2021 10:4 7 AM EST 08/08/2021 1:45 PM EST Xander Reese MD ECG ORDERABLES MUSE SYSTEM documented in this encounter Visit Diagnoses Diagnosis Syncope, unspecified syncope type documented in this encounter Care Teams Land Title Examiner Relationship Specialty Start Date End Date Hoang Castellanos, CASINO BANKER [address] [place] [address] PCP - General Family Medicine 03/12/20 documented as of this encounter
--- OUTSIDE RECORDS SUMMARY | 2024-08-01 18:32 | XMS_ITS | Encounter Summary ---
[place] [address] Care Team Providers Care Loss Prevention Leader Name Role Phone Hoang Castellanos APRN [...] Expiration Date Visits Re quested Visits Authorized [id number] 1 1 Encounter Details Date Type Department Care Team (Late st Contact Info) Description 10/30/2021 8:35 AM EDT - 10/30/2021 1:12 PM EDT [place] [address] Campos Schumacher MD [facility] [place] [address] @ARTHRODESIS, POSTERIOR CERVICAL SPINE (WRVU 17.4) Social [...] the last few months. telephone consent by [facility] Course: Jeannie Rico presented 10/30/2021 for elective [...] who have questions please contact the health certified caregiver that requested your imaging first. Electronically signed by: YANET GANN, [facility] ([phone]), at 10/31/2021 10:[address] Head wo & Multiphase CTA Head/Neck [...] who have questions please contact the health certified caregiver that requested your imaging first. Electronically signed by: Janie Aguilra MD, [facility] ([phone]), at 11/02/2021 12:47 AM XR Chest PA [...] who have questions please contact the health certified caregiver that requested your imaging first. Electronically signed by: Tahira Medrano MD, [facility] ([phone]), at 11/02/2021 11:12 AM Pending Studies and Lab Data: na Discharge Condition: Stable Discharge to: rehab Future Appointments and Orders Future Appointments and Orders Future Appointments Provider Department Dept Phone 12/03/2021 10:30 AM Campos Schumacher MD Neurosurgery at [facility] Arrive at: [place] [facility] [phone] 12/22/2021 9:45 AM Michael Espinoza MD Endocrinology at [facility] Arrive at: [place] [facility] 3A [phone] Future Orders Complete By Expires XR Cervical Spine 2 or 3 Views [00692 Custom] 12/04/2021 (Approximate) 01/04/2022 Process Instructions: Scheduling Instructions: Questions: Where will study be performed?: [facility] Radiology Portable exam?: Reason for exam and [...] lancets 30 gauge Misc 1 each by [facility].(Non-Drug; Combo Route) route daily. [...] anticoagulant, and non-steroidal anti-inflammatory (NSAIDs) drugs. Common sbbt-gyd-fukhssi medications which should be avoided include Aspirin, [...] to pass. These medications can be obtained qwbr-zil-dbkmlmm and their use is recommended on an [...] retention Constipation not relieved by diet and/or mkkl-tsh-vhwgynl stool softeners and laxatives Nausea/vomiting (upset stomach) [...] [facility] [place] ??? [facility] Tobacco Treatment [place], [place] Other Programs at [facility] in [place] ??? Living Free of Tobacco support group: For anyone who has quit tobacco or is considering quitting tobacco. [facility] Health Education Center, Level 4, [place] 3:30 to 4:30 p.m. on the tuesday of every month. Other Programs in the Area ??? [facility] in [place] One-on-one counseling, hypnosis. Cassidy Jamison ??? [facility] in [place], [place] One-on-one counseling, QuitLine, classes. Lay Ferris ??? [facility]: One-on-one counseling. All ages and incomes eligible. Sakshi Camacho [facility]: Classes & support group. Behzad Schwab ??? [facility] in [place], [place] One-on-one counseling, QuitLine, classes, hypnosis therapy. Ruth Corey Information about Quitting Smoking and Tobacco See our Quitting Smoking - Information and Materials page (http://www.[facility].org/medical- information/smoking/information_on_quitting_smoking.html) for educational information about quitting smoking, downloadable smoking cessation materials, podcasts, websites, helplines, and more. FOLLOW UP PLAN: Incision: [x] Your artie need to be removed on 11/13/2021. You can get them removed by coming into our office, PCP office, or at rehab. a Appointments: Please follow up in the Neurosurgery Clinic in 4-6 weeks. Please call the Neurosurgery Office at [phone] if you do not receive a scheduled appointment within two weeks. Your follow-up appointment will be with: [x] Dr. Schumacher Follow-up Imaging: [x] XR - Cervical HOW TO REACH NEUROSURGERY Office Hours: Tuesday through Tuesday, 8am-5pm. Call . On weekends or after office hours: Call [phone] and ask the air compressor operator to page the Neurosurgery Resident/Advanced Practice Provider senior mobile application developer. IMPORTANT PHONE NUMBERS: Outpatient Nurse (Karen Belle) Inpatient Nurses Neurosurgical Resident/Advanced Practice Provider On-Call (after 5pm or before 8am) Neurosurgery offices (Tuesday through Tuesday between 8am-5pm): Adult Neurosurgery Dr. Remy Green Pediatric Neurosurgery Dr. Cassidy Funes Advanced Practice Providers Prudenec Heaton, Nurse Practitioner (outpatient) Cheryl Patel, Physician Drama Critic (inpatient) Mabel Metcalf, Nurse Practitioner (inpatient) Brandi Chiu, Physician Drama Critic (inpatient) Brandi Benavides, Physician Drama Critic (inpatient) Karen Barksdale, Nurse Practitioner (outpatient: vascular) Amanda Mendez, Physician Drama Critic (outpatient: spine) David Herring, Nurse Practitioner (inpatient/outpatient) Freddy Dolan, Physician Drama Critic (outpatient) Margo Almodovar, Nurse Practitioner (outpatient: neuro-oncology) HOW TO REACH NEUROSURGERY Office Hours (Tuesday through Tuesday 8am-5pm): Call On weekends or after office hours (after 5pm or before 8am): Call [phone] and ask the air compressor operator to page the Neurosurgery Resident/Advanced Practice Provider senior mobile application developer. *Your surgeon may not be call center support consultant (especially after office hours or on the weekend) so be ready totell about yourself and your surgery when you call. Neurosurgery Providers Adult Neurosurgery Dr. Remy Green Pediatric Neurosurgery Dr. Cassidy Funes Advanced Practice Providers Prudence Heaton, Nurse Practitioner (outpatient) Cheryl Patel, Physician Drama Critic (inpatient) Mabel Metcalf, Nurse Practitioner (inpatient) Brandi Chiu, Physician Drama Critic (inpatient) Dereck Salgado, Nurse Practitioner (outpatient: pediatric) Brandi Benavides, Physician Drama Critic (inpatient) Karen Barksdale, Nurse Practitioner (outpatient: vascular) Amanda Mendez, Physician Drama Critic (outpatient: spine) Dvaid Herring, Nurse Practitioner (inpatient/outpatient) Freddy Dolan, Physician Drama Critic (outpatient) Margo Almodovar, Nurse Practitioner (outpatient: neuro-oncology) [...] anticoagulant, and non-steroidal anti-inflammatory (NSAIDs) drugs. Common wzzn-txu-awnvwmf medications which should be avoided include Aspirin, [...] to pass. These medications can be obtained dvzv-sgn-dyhuuln and their use is recommended on an [...] retention Constipation not relieved by diet and/or nvfr-vbj-fmmlswj stool softeners and laxatives Nausea/vomiting (upset stomach) [...] [facility] [place] [facility] Tobacco Treatment [facility], [place] Other Programs at [facility] in [place] Living Free of Tobacco support group: For anyone who has quit tobacco or is considering quitting tobacco. [facility] Health Education Center, Level 4, [place] 3:30 to 4:30 p.m. on the tuesday of every month. Other Programs in the Area [facility] in [place] One-on-one counseling, hypnosis. Cassidy Jamison [facility] in [place], [place] One-on-one counseling, QuitLine, classes. Lay Ferris [facility]: One-on-one counseling. All ages and incomes eligible. Sakshi Camacho [facility]: Classes & support group. Behzad Schwab [facility] in [place], [place] One-on-one counseling, QuitLine, classes, hypnosis therapy. Ruth Corey Information about Quitting Smoking and Tobacco See our Quitting Smoking - Information and Materials page (http://www.[email or web address]/medical- information/smoking/information_on_quitting_smoking.html) for educational information about quitting smoking, downloadable smoking cessation materials, podcasts, websites, helplines, and more. FOLLOW UP PLAN: Incision: [x] Your artie need to be removed on 11/13/2021. You can get them removed by coming into our office, PCP office, or at rehab. a Appointments: Please follow up in the Neurosurgery Clinic in 4-6 weeks. Please call the Neurosurgery Office at [phone] if you do not receive a scheduled appointment within two weeks. Your follow-up appointment will be with: [x] Dr. Schumacher Follow-up Imaging: [x] XR - Cervical HOW TO REACH NEUROSURGERY Office Hours: Tuesday through Tuesday, 8am-5pm. Call . On weekends or after office hours: Call [phone] and ask the air compressor operator to page the Neurosurgery Resident/Advanced Practice Provider senior mobile application developer. IMPORTANT PHONE NUMBERS: Outpatient Nurse (Karen Belle) Inpatient Nurses Neurosurgical Resident/Advanced Practice Provider On-Call (after 5pm or before 8am) Neurosurgery offices (Tuesday through Tuesday between 8am-5pm): Adult Neurosurgery Dr. Remy Green Pediatric Neurosurgery Dr. Cassidy Funes Advanced Practice Providers Prudence Heaton, Nurse Practitioner (outpatient) Cheryl Patel, Physician Drama Critic (inpatient) Mabel Metcalf, Nurse Practitioner (inpatient) Brandi Chiu, Physician Drama Critic (inpatient) Brandi Benavides, Physician Drama Critic (inpatient) Karen Barksdale, Nurse Practitioner (outpatient: vascular) Amanda Mendez, Physician Drama Critic (outpatient: spine) David Herring, Nurse Practitioner (inpatient/outpatient) Freddy Dolan, Physician Drama Critic (outpatient) Margo Almodovar, Nurse Practitioner (outpatient: neuro-oncology) [...] Sustained Release 24 hrIndications:Coronary artery disease involving shawnee coronary artery of shawnee heart without angina pectoris TAKE ONE (1) TABLET BY MOUTH EVERY DAY 28 tablet 02/17/2021 01/18/2022 Ventolin HFA 90 mcg/actuation HFA Aerosol InhalerIndications: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 All belongings sent with patient. KILO removed, incision HOISTING ENGINEER, skin free from pressure ulcers. Discharge instructions, medications, and follow-up appointments reviewed, education provided on 1300, all questions answered. Report called to at 1300. Patient instructed to call with concerns. * Parvin Barksdale RN - 11/04/2021 11:44 AM EDT Physician Certification Statement for Non-Emergency Ambulance Services Section I - General Information Jeannie Rico 1960 Medicare Number: [id number] Transport Date: 11/04/21 (PCS is valid for round trips on this date and for all repetitive trips in the 60-day range as noted below.) Origin: [facility] Destination: [facility], [place] Is the patient's stay covered under [...] van (i.e. seated during transport, without medical doctor or monitoring?): No 4) In addition to [...] ambulance transport. Parvin Barksdale MSN-Ed, RN ACM gauge machine operator Office of Care Management Pager #[phone] * Kanu Roberts RN - 11/04/2021 11:23 [...] AM EDTSummary: Discharge Note Office of Care Management/Diesel Engine Operator Patient Name: Jeannie Rico : 1960 Patient has been offered an acute rehab bed at [facility] for today, 11/04/21 [facility] arranged for a 1530 transport. Ambulance will need: Medicare ambulance form completed and signed (MD or Senior Loan Processor RN/INFORMATION TECHNOLOGY INTERNSHIP) Copy of patient demographics [place] [facility] DNR/DNI order, if active No MD to MD report necessary Please call Nursing Report to , ask for players assistant. Info to accompany patient: Copies of Medication Administration Records and IV sheets for past 10 days. Plan: Diesel Engine Operator will be available to the patient and Senior Loan Processor-RN and/or Social Workerfor further assistance. Patient will be discharged to: [facility] Jeremy Pearson, Diesel Engine Operator * Amelie Howell OTA - 11/04/2021 9:37 [...] ?? Safety awareness: impulsive ?? 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 minimal vision R eye ?? Strength [...] Therapy Rehabilitation Department SRUTHI Tomas Pager # [phone] Patient status, treatment interventions, and goals discussed [...] Procedure Component Value Units Date/Time COVID-19 PCR [[id number]] Collected: 11/02/21 1615 Lab Status: Final result [...] using the Simplexa COVID-19 Direct Assay by F[employer]ELUP as authorized by the FDA issued Emergency [...] Department of Pathology and Laboratory Medicine at [facility], certified under the Clinical Laboratory Improvement [...] fact sheets at the following FDA website: https://www.fda.gov/medical-devices/tgjqbitqjyh-dtsgdpj-6966-vwkgf-66-fqvadncyk- mnn-okkiwnznnbhkhi-uqovcyc-devices/ohwaa-msyjxeylwgy-ngoi SARS-CoV-2 Source SECURITY PROGRAM MANAGER Swab COVID-19 PCR [[id number]] Collected: 10/27/21 1132 Lab Status: Final result [...] diagnosis of COVID-19 is performed using the Sovex m SARS-CoV-2 Assay as authorized by the FDA Emergency Use Authorization (EUA). This EUA assay is intended for In-vitro Diagnostic (IVD) use with respiratory specimens such as nasopharyngeal swabs collected from individuals during the acute phase of infection. This assay is performed based on the instructions for use provided by [employer] and additional guidance provided by CDC and FDA. Testing is performed in the Clinical [facility] and Advanced Technology Laboratory within the Department of Pathology and Laboratory Medicine at [facility], certified under the Clinical Laboratory Improvement [...] fact sheets at the following FDA website: https://www.fda.gov/medical-devices/tdwbsjnaqya-ursugxn-5303-efvcf-90-qggqebfze- yxy-ztvyhckhqdnsbf-dbbiqiz-devices/amwmi-ssfugtwuund-koyi SARS-Cov-2 RNA Source SECURITY PROGRAM MANAGER Swab Diagnostic Studies: Results for orders placed [...] who have questions please contact the health certified caregiver that requested your imaging first. Electronically signed by: YANET GANN [facility] ([phone]), at 10/31/2021 10:[address] Head wo & Multiphase CTA Head/Neck [...] who have questions please contact the health certified caregiver that requested your imaging first. Electronically signed by: Janie Aguilar MD, [facility] ([phone]), at 11/02/2021 12:47 AM XR Chest PA [...] who have questions please contact the health certified caregiver that requested your imaging first. Electronically signed by: Tahira Medrano MD, [facility] ([phone]), at 11/02/2021 11:12 AM Inpatient Medications: Scheduled [...] changes occur or new questions arise, page [phone]. Case discussed with Dr. Adal Trinidad. Associated [...] Oxygen weaned off, with intermittent requirement in dermatology specialist which likely relates to sleep apnea. Hemodynamics [...] has made the decision easier. Kimberly Lee INFORMATION TECHNOLOGY INTERNSHIP,[facility] [id number] * Kanu Roberts RN - 11/03/2021 [...] home, and has home PT and home sales consultant services. Bathroom Set-up: tub shower with seat [...] Billing Code: functional mobility ANDRES NINO PT Pager:[phone] Physical Therapy Inpatient Rehabilitation Department * Kimberly [...] John King and her Casemanager Jodie at [facility] out of [place].Her team has been callingto check in on her while she has been Hospitalized.Patient reports she is on MH medications and hasnot had any side effects from the medications that she can not tolerate at this time.Patient ststesher has MH struggles also and [facility] will be checking on him while she is I rehab for a couple of weeks. Kimberly DIOR,[facility] [id number] * Amelie Howell, FRANCISCO - 11/03/2021 [...] ?? Safety awareness: impulsive ?? 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 minimal vision R eye ?? Strength and ROM: ?? Pt strength and ROM in RUE improved 4/5 strength with report of improvement in sensation ?? Endurance:fair ?? Vitals: pt reported feeling lightheaded following sup>sit, BP taken: 109/68. ?? Pt oxygen found not to be turned on, this entry writer placed pt on 2 L. VSS [...] Occupational Therapy Rehabilitation Department Amelie NEGRO Pager #[phone] Patient status, treatment interventions, and goals discussed [...] Procedure Component Value Units Date/Time COVID-19 PCR [[id number]] Collected: 11/02/21 1615 Lab Status: Final result [...] using the Simplexa COVID-19 Direct Assay by FUELUP as authorized by the FDA issued Emergency [...] Department of Pathology and Laboratory Medicine at [facility], certified under the Clinical Laboratory Improvement [...] fact sheets at the following FDA website: https://www.fda.gov/medical-devices/rdwvsclqlvb-vgpekwr-4130-ekqbi-06-ncngfayeu- crb-kjauargksqnkfw-zmndavb-devices/fzauo-gfadyjjzcju-geov SARS-CoV-2 Source SECURITY PROGRAM MANAGER Swab COVID-19 PCR [[id number]] Collected: 10/27/21 1132 Lab Status: Final result [...] diagnosis of COVID-19 is performed using the U[employer]KniVel[employer] m SARS-CoV-2 Assay as authorized by the FDA Emergency Use Authorization (EUA). This EUA assay is intended for In-vitro Diagnostic (IVD) use with respiratory specimens such as nasopharyngeal swabs collected from individuals during the acute phase of infection. This assay is performed based on the instructions for use provided by [employer] and additional guidance provided by CDC and FDA. Testing is performed in the Clinical [employer] and Advanced Technology Laboratory within the Department of Pathology and Laboratory Medicine at [facility], certified under the Clinical Laboratory Improvement [...] fact sheets at the following FDA website: https://www.fda.gov/medical-devices/avwyzgiipqw-gztlxem-4212-qqedm-78-hqtrmwydx- wnu-gzhgsrpxswuynn-mlqfrhc-devices/oqzmz-odtdxyoilxn-hpbe SARS-Cov-2 RNA Source SECURITY PROGRAM MANAGER Swab Diagnostic Studies: Results for orders placed [...] who have questions please contact the health certified caregiver that requested your imaging first. Electronically signed by: YANET GANN [facility] ([phone]), at 10/31/2021 10:[address] Head wo & Multiphase CTA Head/Neck [...] who have questions please contact the health certified caregiver that requested your imaging first. Electronically signed by: Janie Aguilar MD, [facility] ([phone]), at 11/02/2021 12:47 AM XR Chest PA [...] who have questions please contact the health certified caregiver that requested your imaging first. Electronically signed by: Tahira Medrano MD, [facility] ([phone]), at 11/02/2021 11:12 AM Inpatient Medications: Scheduled [...] home, and has home PT and home sales consultant services. Bathroom Set-up: tub shower with seat [...] Billing Code: functional mobility ANDRES NINO, PT Pager:[phone] Physical Therapy Inpatient Rehabilitation Department * Parvin Barksdale RN - 11/02/2021 10:28 AM EDT Based on discussions with the multi-disciplinary healthcare team, the patient would benefit from acute/swing level of care at discharge. ?? I have met with the Patient to discuss discharge planning needs. I have provided the [facility], Office of Care Management letter from the [employer] Developer pertaining to rehab referrals. I have also provided a letter describing our affiliations within the [facility] and educatedthem about their right to choose where referrals are. ?? Provided patient with [facility] Star Quality Rating for SNF, LTAC and/or [...] requested referrals to: 1. [facility] [address] [place] [address] ?? 2. [facility] Acute Rehabilitation and Sub-Acute (Swing) Rehab Levels of Care [address] [place] [address] ?? 3. [facility] (Swing) ([facility]) [address] [place] [address] ?? PHONE: [phone] FAX: [phone] ?? Expected date of discharge: 11/03/21 Has patient received the COVID vaccine: Yes Booster: Yes Does patient have COVID vaccine card: Yes Copy of Card Obtained: No Note routed to Diesel Engine Operator who will communicate referrals to facilities and provide any required information. Parvin Barksdale MSN-Ed, RN ACM gauge machine operator Office of Care Management Pager #[phone] * Earlene Lee RN - 11/02/2021 12:14 AM EDT Patient desated to 70s on 3l NC o2, on 4L o2 NC, sat is 94%. Provider aware. Patient had a ct head and neck as her RLE was 2/5 strength at bedtime, and family was concerned about patient's shorter responses and confusion, though was AOx4 for this entry writer's check of orientationat bedtime. Provider aware. [...] 17.4) performed by Campos Schumacher MD at [facility] MAIN OR PRO DUDLEY W/O FACETEC FORAMOT/DSKC 1/ VRT SEG, CERVICAL N/A 10/30/2021 LAMINECTOMY, CX W/EXPLOR , W/O FACETECTOMY, 1 OR 2 SEGMENTS (WRVU 17.61) performed by Campos Schumacher MD at [facility] MAIN OR PRO POSTERIOR SEGMENTAL INSTRUMENTATION 3-6 VRT SEG N/A 10/30/2021 POST SPINAL INSTRUMENTATION, 3-6 VERTEBRA, NON SEGMENTAL (WRVU 12.56) performed by Campos Schumacher MD at [facility] MAIN OR PRO UPPER GI ENDOSCOPY, BIOPSY N/A 12/03/2015 EGD WITH BIOPSY performed by Ken Sanders MD at [facility] ENDOSCOPY PRO UPPER GI ENDOSCOPY, BIOPSY N/A 09/19/2018 UPPER GASTROINTESTINAL ENDOSCOPY,WITH BIOPSY SINGLE OR MULTIPLE (WRVU 2.49) performed by Tyron Mercado MD at [facility] ENDOSCOPY TONSILLECTOMY UPPER GI ENDOSCOPY, EXAM 12/04/2010 UPPER GI ENDOSCOPY performed by DEE WRIGHT at [facility] ENDOSCOPY Social History: Home set-up: Pt lives with he in an apt with 3 cats. is home, and has home PT and home sales consultant services. Bathroom Set-up: tub shower with seat [...] 54 Billing Code: miles NINO, PT Pager: [phone] Physical Therapy Inpatient Rehabilitation Department * Pham [...] 17.4) performed by Campos Schumacher MD at [facility] MAIN OR ??? PRO DUDLEY W/O FACETEC FORAMOT/DSKC 1/ VRT SEG, CERVICAL N/A 10/30/2021 LAMINECTOMY, CX W/EXPLOR , W/O FACETECTOMY, 1 OR 2 SEGMENTS (WRVU 17.61) performed by Campos Schumacher MD at [facility] MAIN OR ??? PRO POSTERIOR SEGMENTAL INSTRUMENTATION 3-6 VRT SEG N/A 10/30/2021 POST SPINAL INSTRUMENTATION, 3-6 VERTEBRA, NON SEGMENTAL (WRVU 12.56) performed by Campos Schumacher MD at [facility] MAIN OR ??? PRO UPPER GI ENDOSCOPY, BIOPSY N/A 12/03/2015 EGD WITH BIOPSY performed by Ken Sanders MD at [facility] ENDOSCOPY ??? PRO UPPER GI ENDOSCOPY, BIOPSY N/A 09/19/2018 UPPER GASTROINTESTINAL ENDOSCOPY,WITH BIOPSY SINGLE OR MULTIPLE (WRVU 2.49) performed by Tyron Mercado MD at [facility] ENDOSCOPY ??? TONSILLECTOMY ??? UPPER GI ENDOSCOPY, EXAM 12/04/2010 UPPER GI ENDOSCOPY performed by DEE WRIGHT at [facility] ENDOSCOPY Social History: Patient lives with her [...] deficits Vision & Perception: ?? 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 minimal vision R eye Communication: WFL [...] and measurable assessment of functional outcome. Pager: [phone] Pham Shannon OT 11/01/2021 Occupational Therapy Rehabilitation [...] eval as able. Kenna Diane, PT Pager: [phone] Physical Therapy Inpatient Rehabilitation Department * Moe [...] for tomorrow to see as appropriate. Pager: [phone] MOE [facility]ANTRE[facility] OT 10/31/2021 Occupational Therapy Rehabilitation [...] BIOPSY performed by Ken Sanders MD at [facility] ENDOSCOPY ??? PRO UPPER GI ENDOSCOPY, BIOPSY N/A 09/19/2018 UPPER GASTROINTESTINAL ENDOSCOPY,WITH BIOPSY SINGLE OR MULTIPLE (WRVU 2.49) performed by Tyron Mercado MD at [facility] ENDOSCOPY ??? TONSILLECTOMY ??? UPPER GI ENDOSCOPY, EXAM 12/04/2010 UPPER GI ENDOSCOPY performed by DEE WRIGHT at [facility] ENDOSCOPY Medications: No current facility-administered medications on [...] 30 tablet 1 ??? Miscellaneous Medical Supply [facility] 1 walker on wheels [...] lancets 30 gauge Misc 1 each by [facility].(Non-Drug; Combo Route) route daily. [...] - 10/30/2021 12:50 PM EDT NEURODIAGNOSTIC LABORATORY [facility] INTRAOPERATIVE MONITORING REPORT Name: Jeannie Rico : [...] and abductor hallucis brevis recordings. CPT Codes: 67384 (EEG); 08443 (EMG 2 limbs); 44604 (EMG limited x2) 37222 (TOF, 4 nerves); 23727 (upper & lower MEP); 51512 (upper and lower SSEP bilateral); 54503 (IOM, 7 units); 95454 (IOM, 2 units). Intraoperative Neurophysiologic Monitoring was [...] & Follow-up Care: Contact information for follow-up [facility] [address] [facility] [address] Transportation: Wheelchair van/Ambulance? Yes Ambulance transportation is [...] MEDICAID [place] Prescription Coverage: Yes Preferred Pharmacy: [facility] [place], [place] - [address] [facility] [address] [facility] [address] [facility] [place], [place] [facility] [address] [facility] [address] [facility] [address] [facility] [address] [facility] [address] This plan was formulated with input from patient, pt and family (please identify family/friend involved if applicable) and team. All are in agreement with plan. Parvin BATEMAN, RN Pager #[phone] * Plan of Care - Sarah Hanson [...] lancets 30 gauge Misc 1 each by [facility].(Non-Drug; Combo Route) route daily. [...] 17.4) performed by Campos Schumacher MD at [facility] MAIN OR ??? PRO DUDLEY W/O FACETEC FORAMOT/DSKC 07/26 VRT SEG, CERVICAL N/A 10/30/2021 LAMINECTOMY, CX W/EXPLOR , W/O FACETECTOMY, 1 OR 2 SEGMENTS (WRVU 17.61) performed by Campos Schumacher MD at [facility] MAIN OR ??? PRO POSTERIOR SEGMENTAL INSTRUMENTATION 3-6 VRT SEG N/A 10/30/2021 POST SPINAL INSTRUMENTATION, 3-6 VERTEBRA, NON SEGMENTAL (WRVU 12.56) performed by Campos Schumacher MD at [facility] MAIN OR ??? PRO UPPER GI ENDOSCOPY, BIOPSY N/A 12/03/2015 EGD WITH BIOPSY performed by Ken Sanders MD at [facility] ENDOSCOPY ??? PRO UPPER GI ENDOSCOPY, BIOPSY N/A 09/19/2018 UPPER GASTROINTESTINAL ENDOSCOPY,WITH BIOPSY SINGLE OR MULTIPLE (WRVU 2.49) performed by Tyron Mercado MD at [facility] ENDOSCOPY ??? TONSILLECTOMY ??? UPPER GI ENDOSCOPY, EXAM 12/04/2010 UPPER GI ENDOSCOPY performed by DEE WRIGHT at [facility] END[facility] Family History: Mother: from lung cancer at age 64; COPD, smoker, congestive heart failure Father: HTN, DM, Kidney Cancer, Skin Cancer; from [place] at 76 Maternal Grandmother - at age 35 y/o due to ovarian Social History: Tobacco: not a current smoker; prior 3 packs a day smoker - quit 3 months prior Etoh: none Illicits: uses medical marijuana Living Situation: Lives in [place], [place] Occupation: On disability due to mental [...] who have questions please contact the health certified caregiver that requested your imaging first. Electronically signed by: YANET GANN [facility] ([phone]), at 10/31/2021 10:[address] Head wo & Multiphase CTA Head/Neck [...] who have questions please contact the health certified caregiver that requested your imaging first. Electronically signed by: Janie Aguilar MD, [facility] ([phone]), at 11/02/2021 12:47 AM XR Chest PA [...] who have questions please contact the health certified caregiver that requested your imaging first. Electronically signed by: Tahira Medrano MD, [facility] ([phone]), at 11/02/2021 11:12 AM Assessment: Ms. Jeannie iRco is a 61 y.o. female h/o CAD [...] MD Internal Medicine, PGY3 DINORA Pager # [phone] Associated attestation - Adal Trinidad MD - [...] TBD pending rehab evals and hospital course. [employer] support for PMH PTSD, bipolar DO and anxiety. Care Management will continue to follow and assist with discharge planning and coordination of care as indicated. Anticipated Date of Discharge: 11/04/2021 Parvin BATEMAN, RN Pager #[phone] * Initial Assessments - Parvin Barksdale RN - 10/31/2021 1:55 PM EDT Office of Care Management Initial Assessment Medical record reviewed. Plan of care and patient status discussed with direct care Registered Nurse and/or Care Team in multidisciplinary rounds. Reason for Hospitalization: spinal surgery Last COVID test: Lab Results Component Value Date COVID19 Not Detected 10/27/2021 [id number] Not Detected 07/03/2020 Present on Admission: ??? Arthrodesis present Hospitalizations Within the Past 30 Days: no previous admission in last 30 days Patient receiving hospital care under IPI- SDP Admission (IP) status. Admission order reviewed. Primary Insurance on file: MEDICARE Secondary Insurance on file:@ Primary care provider on file: Hoang Castellanos, AGRICULTURAL PURCHASING AGENT [phone] Pharmacy: [facility] [place] - [place] - [address] [address] [place] [address] [facility] - [place], [place] - [address] [facility] [address] Advance Care Planning: Attempt Cardiopulmonary Resuscitation - Inpatient Received -Advanced Directive: Yes, on file Who is your DPOA-HC?: Sibling Current Functional Ability: Completely Dependent Functional Status Prior to Admission: unable to assess Home Environment: Others in the home: spouse. Current Living Arrangements: home/apartment/condo. Accessibility Concerns: . Current DME: unable to assess [address] [place] [address] Social & Family Supports: All names listed below confirmed with patient as current and correct Extended Emergency Contact Information Primary Emergency Contact: MittalKyra dubose Address: [address] [place] Relation: Sibling Secondary Emergency Contact: jodie espinoza Mobile Relation: Physical Security Manager Current Care Provided by: unable to assess [...] TBD pending hospital course and rehab evals. [employer] consult requested for emotional support r/t PMH PTSD, bipolar DO and anxiety. Registered Nurse Senior Loan Processor / Marble Carver will continue to follow patient???s progress and remain available if situation changes for coordination of care, psychosocial support and/or discharge planning. Office of Care Management Parvin Barksdale MSN, RN Pager #[phone] * Plan of Care - Irasema Calix [...] Operative Note Patient Name: Jeannie Rico : [id number] MR#: [id number] Case Date: 10/30/2021 Surgeon: Surgeon(s) and Role: [...] Lu MD - 10/30/2021 10:44 AM EDT [facility] Operative Note Patient Name: Jeannie Rico : [id number] MR#: [id number] Case Date: 10/30/2021 Surgeon: Surgeon(s) and Role: [...] C6, which was again confirmed by fluoroscopy. Operations Supervisor holes for our screws were then fashioned bilaterally along the lateral masses of C5 and C6 using a modified Magerl technique with insertion point slightly inferior and medial to the midpoint ofthe lateral masses first using the Div[employer]Cloud[employer] Cirilo C1 drill bit for the cortical rim, followed by hand drill, tap, and confirmation with ball tip feeler. The right C6 entry point required redirection to avoid entering the facet space. Once we were satisfied with the balloon pilot holes bone wax was placed in [...] healing. Attention was then given to closure. Corona irrigation was then performed and meticulous hemostasis [...] then flipped onto the recovery bed, Garsia head golf coach removed, and extubated without incident. At the [...] 11/02/2021 7:51 PM EDT RAPID COVID-19 PCR ([facility]) Routine 11/02/2021 4:15 PM EDT POCT GLUCOSE [...] W/O Facetec Foramot/Dskc 07/26 Vrt Seg, Cervical ([id number]) 10/30/2021 8:44 AM EDT C 5/6 and 6/7 ACDF MODIFIER,POSTERIOR CERVICAL INFINITY MEDTRONIC 10/30/2021 8:44 AM EDT C 5/6 and 6/7 ACDF Posterior Segmental Instrumentation 3-6 Vrt Seg ([id number]) 10/30/2021 8:44 AM EDT C 5/6 and 6/7 ACDF Arthrodesis, Post/Posterolat Tq, Sngle Interspace; Cervical Below C2 Segmnt ([id number]) 10/30/2021 8:44 AM EDT C 5/6 and [...] CARE TEST O ALYSON [facility] [place] [address] * POCT Glucose (11/04/2021 7:41 AM EDT) Glucose, POC 133 65 - 199 mg/dL [facility] Comment: Supplemental ranges: <140 mg/dL before meals <180 mg/dL all other times of the day Blood 11/04/2021 7:41 AM EDT 11/04/2021 7:41 AM EDT Campos Schumacher MD POINT OF CARE TEST O ALYSON Performing Organization Address [facility]/ZIP Co de Phone Number [facility] [place] [address] * POCT Glucose (11/04/2021 3:56 AM EDT) Glucose, POC 85 65 - 199 mg/dL [facility] Comment: Supplemental ranges: <140 mg/dL before meals <180 mg/dL all other times of the day Blood 11/04/2021 3:56 AM EDT 11/04/2021 3:56 AM EDT Campos Schumacher MD POINT OF CARE TEST O ALYSON Performing Organization Address City/[facility]/ZIP Co de Phone Number [facility] [place] [address] * POCT Glucose (11/03/2021 11:46 PM EDT) Glucose, POC 98 65 - 199 mg/dL [facility] Comment: Supplemental ranges: <140 mg/dL before meals <180 mg/dL all other times of the day Blood 11/03/2021 11:4 6 PM EDT 11/03/2021 11:46 PM EDT Campos Schumacher MD POINT OF CARE TEST O ALYSON [facility] [place] [address] * POCT Glucose (11/03/2021 7:56 PM EDT) Glucose, POC 95 65 - 199 mg/dL [facility] Comment: Supplemental ranges: <140 mg/dL before meals <180 mg/dL all other times of the day Blood 11/03/2021 7:56 PM EDT 11/03/2021 7:56 PM EDT Campos Schumacher MD POINT OF CARE TEST O ALYSON Performing Organization Address City/[facility]/ZIP Co de Phone Number [facility] [place] [address] * (ABNORMAL) POCT Glucose (11/03/2021 3:15 PM EDT) Glucose, POC 216(H) 65 - 199 mg/dL [facility] Comment: Supplemental ranges: <140 mg/dL before meals <180 mg/dL all other times of the day Blood 11/03/2021 3:15 PM EDT 11/03/2021 3:15 PM EDT Campos Schumacher MD POINT OF CARE TEST O JER[place]AKE [facility] [place] [address] * (ABNORMAL) POCT Glucose (11/03/2021 12:03 PM EDT) Glucose, POC 307(H) 65 - 199 mg/dL [facility] Comment: Supplemental ranges: <140 mg/dL before meals <180 mg/dL all other times of the day Blood 11/03/2021 12:0 3 PM EDT 11/03/2021 12:03 PM EDT Campos Schumacher MD POINT OF CARE TEST O ALYSON Performing Organization Address [facility] Co de Phone Number [facility] [place] [address] * POCT Glucose (11/03/2021 7:44 AM EDT) Glucose, POC 110 65 - 199 mg/dL [facility] Comment: Supplemental ranges: <140 mg/dL before meals <180 mg/dL all other times of the day Blood 11/03/2021 7:44 AM EDT 11/03/2021 7:44 AM EDT Campos Schumacher MD POINT OF CARE TEST O ALYSON Performing Organization Address [facility] Co de Phone Number [facility] [place] [address] * POCT Glucose (11/03/2021 4:13 AM EDT) Glucose, POC 103 65 - 199 mg/dL [facility] Comment: Supplemental ranges: <140 mg/dL before meals <180 mg/dL all other times of the day Blood 11/03/2021 4:13 AM EDT 11/03/2021 4:13 AM EDT Campos Schumacher MD POINT OF CARE TEST O ALYSON Performing Organization Address [facility] Co de Phone Number [facility] [place] [address] * POCT Glucose (11/03/2021 12:03 AM EDT) Glucose, POC 100 65 - 199 mg/dL [facility] Comment: Supplemental ranges: <140 mg/dL before meals <180 mg/dL all other times of the day Blood 11/03/2021 12:0 3 AM EDT 11/03/2021 12:03 AM EDT Campos Schumacher MD POINT OF CARE TEST O RDERABLES Performing Organization Address City/[facility]/ZIP Co de Phone Number [facility] [place] [address] * POCT Glucose (11/02/2021 7:51 PM EDT) Pathologist [facility] Glucose, POC 116 65 - 199 mg/dL [facility] Comment: Supplemental ranges: <140 mg/dL before meals <180 mg/dL all other times of the day Blood 11/02/2021 7:51 PM EDT 11/02/2021 7:51 PM EDT Campos Schumacher MD POINT OF CARE TEST O ALYSON Performing Organization Address [facility] Co de Phone Number [facility] [place] [address] * COVID-19 PCR (11/02/2021 4:15 PM EDT) [facility] [address] SARS-CoV-2 RNA (Rapid) Not Detected Not Detected [...] using the Simplexa COVID-19 Direct Assay by [employer] as authorized by the FDA issued Emergency [...] Department of Pathology and Laboratory Medicine at [facility], certified under the Clinical Laboratory Improvement [...] fact sheets at the following FDA website: https://www.fda.gov/medical-devices/fqnjzwnblex-tovalxu-9435-wpdbr-21-ashtbwvez- use-a thscpultknqdt-mbkzael-ucgmhtt/qxdgl-ywebygeblxv-drqf SARS-CoV-2 Source SECURITY PROGRAM MANAGER Swab [facility] Nasopharyngeal Swab 11/03/19 4:15 PM EDT 11/02/2021 5:10 PM EDT Comment:Symptoms->Surveillan ce Narrative Resulting Agency Comment Spec In Lab Campos Schumacher MD MICROBIOLOGY - GENER AL ORDERABLES [facility] [place] [address] * POCT Glucose (11/02/2021 3:35 PM EDT) Glucose, POC 100 65 - 199 mg/dL [facility] Comment: Supplemental ranges: <140 mg/dL before meals <180 mg/dL all other times of the day Blood 11/02/2021 3:35 PM EDT 11/02/2021 3:35 PM EDT Campos Schumacher MD POINT OF CARE TEST O ALYSON Performing Organization Address City/[facility]/ZIP Co de Phone Number [facility] [place] [address] * POCT Glucose (11/02/2021 11:57 AM EDT) Glucose, POC 77 65 - 199 mg/dL [facility] Comment: Supplemental ranges: <140 mg/dL before meals <180 mg/dL all other times of the day Blood 11/02/2021 11:5 7 AM EDT 11/02/2021 11:57 AM EDT Campos Schumacher MD POINT OF CARE TEST O ALYSON Performing Organization Address [facility]/ZIP Co de Phone Number [facility] [place] [address] * XR Chest PA & Lateral (Generic) [...] who have questions please contact the health certified caregiver that requested your imaging first. ? Electronically signed by: Tahira Medrano MD, [facility] ([phone]), at 11/02/2021 11:12 AM Narrative 11/02/2021 11:12 [...] patients who have questions please contactthe health certified caregiver that requested your imaging first. Electronically signed by: Tahira Medrano MD, [facility]([phone]), at 11/02/2021 11:12 AM Campos Schumacher MD IMG DX ORDERABLES * POCT Glucose (11/02/2021 7:20 AM EDT) Glucose, POC 97 65 - 199 mg/dL [facility] Comment: Supplemental ranges: <140 mg/dL before meals <180 mg/dL all other times of the day Blood 11/02/2021 7:20 AM EDT 11/02/2021 7:20 AM EDT Campos Schumacher MD POINT OF CARE TEST O RDERABLES Performing Organization Address City/[facility]/ZIP Co de Phone Number [facility] [place] [address] * Duplex Study for DVT, Bilat legs (11/02/2021 7:15 AM EDT) VB Text Report Department: Vascular Surgery Lab Patient: [id number] (JEANNIE RICO) CPT: 03770 Referring Physician: CAMPOS SCHUMACHER ?? Indications: New [...] Schumacher MD VASCULAR ORDERABLES Performing Organization Address [facility]/ZIP Co de Phone Number [facility] * POCT Glucose (11/02/2021 4:02 AM EDT) Glucose, POC 90 65 - 199 mg/dL [facility] Comment: Supplemental ranges: <140 mg/dL before meals <180 mg/dL all other times of the day Blood 11/02/2021 4:02 AM EDT 11/02/2021 4:02 AM EDT Campos Schumacher MD POINT OF CARE TEST O ALYSON Performing Organization Address [facility] Co de Phone Number [facility] [place] [address] * POCT Glucose (11/01/2021 11:59 PM EDT) Glucose, POC 97 65 - 199 mg/dL [facility] Comment: Supplemental ranges: <140 mg/dL before meals <180 mg/dL all other times of the day Blood 11/01/2021 11:5 9 PM EDT 11/01/2021 11:59 PM EDT Campos Schumacher MD POINT OF CARE TEST O ALYSON Performing Organization Address [facility] Co de Phone Number [facility] [place] [address] * CT Head wo & Multiphase CTA [...] who have questions please contact the health certified caregiver that requested your imaging first. ? Electronically signed by: Janie Aguilar MD, [facility] ([phone]), at 11/02/2021 12:47 AM Narrative 11/02/2021 12:47 AM EDT EXAMINATION: CT HEAD WO & MULTIPHASE CTA HEAD/NECK (THROMBECTOMY PROTOCOL) CLINICAL HISTORY: cva sx. neuro feficiets TECHNIQUE: CT of head without intravenous contrast. Multiphase CTA of the carotids and paimiut of Bar[place]ay is performed after the administration [...] dissection. Bilateral vertebral arteries, basilar artery, bilateral indirect fire infantryman, and bilateral posterior communicating arteries are patent [...] intravenous contrast. Multiphase CTA of the carotidsand paimiut of Barclay is performed after the administration [...] dissection. Bilateral vertebral arteries, basilar artery, bilateral indirect fire infantryman, andbilateral posterior communicating arteries are patent without evidence ofhemodynamically significant stenosis, aneurysm or dissection. Diminutive right Q0rabhqar. No perfusion asymmetry on the delayed phase [...] patients who have questions please contactthe health certified caregiver that requested your imaging first. Electronically signed by: Janie Aguilar MD, [facility]([phone]), at 11/02/2021 12:47 AM Campos Schumacher MD IMG CT ORDERABLES * POCT Glucose (11/01/2021 7:50 PM EDT) Glucose, POC 91 65 - 199 mg/dL [facility] Comment: Supplemental ranges: <140 mg/dL before meals <180 mg/dL all other times of the day Blood 11/01/2021 7:50 PM EDT 11/01/2021 7:50 PM EDT Campos Schumacher MD POINT OF CARE TEST O RDERAKE Performing Organization Address City/[facility]/ZIP Co de Phone Number [facility] [place] [address] * POCT Glucose (11/01/2021 4:01 PM EDT) Glucose, POC 110 65 - 199 mg/dL [facility] Comment: Supplemental ranges: <140 mg/dL before meals <180 mg/dL all other times of the day Blood 11/01/2021 4:01 PM EDT 11/01/2021 4:01 PM EDT Campos Schumacher MD POINT OF CARE TEST O ALYSON [facility] [place] [address] * POCT Glucose (11/01/2021 11:56 AM EDT) Glucose, POC 119 65 - 199 mg/dL [facility] Comment: Supplemental ranges: <140 mg/dL before meals <180 mg/dL all other times of the day Blood 11/01/2021 11:5 6 AM EDT 11/01/2021 11:56 AM EDT Campos Schumacher MD POINT OF CARE TEST O ALYSON Performing Organization Address City/[facility]/ZIP Co de Phone Number [facility] [place] [address] * POCT Glucose (11/01/2021 7:52 AM EDT) Glucose, POC 108 65 - 199 mg/dL [facility] Comment: Supplemental ranges: <140 mg/dL before meals <180 mg/dL all other times of the day Blood 11/01/2021 7:52 AM EDT 11/01/2021 7:52 AM EDT Campos Schumacher MD POINT OF CARE TEST O ALYSON Performing Organization Address City/[facility]/ZIP Co de Phone Number [facility] [place] [address] * POCT Glucose (11/01/2021 3:09 AM EDT) Glucose, POC 117 65 - 199 mg/dL [facility] Comment: Supplemental ranges: <140 mg/dL before meals <180 mg/dL all other times of the day Blood 11/01/2021 3:09 AM EDT 11/01/2021 3:09 AM EDT Campos Schumacher MD POINT OF CARE TEST O ALYSON Performing Organization Address City/[facility] Co de Phone Number [facility] [place] [address] * POCT Glucose (11/01/2021 12:37 AM EDT) Glucose, POC 134 65 - 199 mg/dL [facility] Comment: Supplemental ranges: <140 mg/dL before meals <180 mg/dL all other times of the day Blood 11/01/2021 12:3 7 AM EDT 11/01/2021 12:37 AM EDT Campos Schumacher MD POINT OF CARE TEST O ALYSON Performing Organization Address City/[facility]/ZIP Co de Phone Number [facility] [place] [address] * POCT Glucose (10/31/2021 8:17 PM EDT) Glucose, POC 109 65 - 199 mg/dL [facility] Comment: Supplemental ranges: <140 mg/dL before meals <180 mg/dL all other times of the day Blood 10/31/2021 8:17 PM EDT 10/31/2021 8:17 PM EDT Campos Schumacher MD POINT OF CARE TEST O ALYSON Performing Organization Address [facility]/ZIP Co de Phone Number [facility] [place] [address] * POCT Glucose (10/31/2021 4:16 PM EDT) Glucose, POC 129 65 - 199 mg/dL [facility] Comment: Supplemental ranges: <140 mg/dL before meals <180 mg/dL all other times of the day Blood 10/31/2021 4:16 PM EDT 10/31/2021 4:16 PM EDT Campos Schumacher MD POINT OF CARE TEST O ALYSON Performing Organization Address City/[facility] Co de Phone Number [facility] [place] [address] * (ABNORMAL) pro-Brain Natriuretic Peptide (10/31/2021 12:21 PM EDT) NT-proBNP 428(H) <=124 pg/mL [facility] Blood Venous Draw / Unknown 10/31/2021 12:21 PM EDT 10/31/2021 12:57 PM EDT Narrative Resulting Agency Comment Spec In Lab Cheryl GR CHEMISTRY ORDERAB LES Performing Organization Address [facility] Co de Phone Number [facility] [place] [address] * Troponin (10/31/2021 12:21 PM EDT) Pathologist [facility] Troponin-T <0.01 0.00 - 0.00 ng/mL [facility] Comment: The 99th percentile for Troponin T is less than 0.01 ng/mL, any detectable cTnT concentration using this assay should be considered elevated. According to the third universal definition of myocardial infarction the following criteria with a clinical presentation consistent with acute myocardial ischemia meets the diagnosis for a myocardial infarction ([place]). Detection of a rise and/or fall of cTnT, with at least one value greater than the 99th percentile (> or = 0.01) and with at least one of the following ?? Symptoms of ischemia ?? New or presumed new significant XP-aplyikt-Y wave (ST-T) changes or new left bundle [...] additional sample may be indicated. Reference: Third [place] Definition of Myocardial Infarction. Journal of the [place] [employer] 2012;60:1581-98 Blood 10/31/2021 12:2 1 PM EDT 10/31/2021 12:32 PM EDT Narrative Resulting Agency Comment Spec In Lab Campos Schumacher MD CHEMISTRY ORDERABLES Performing Organization Address [facility]/ZIP Co de Phone Number [facility] [place] [address] * (ABNORMAL) Basic Metabolic Panel (non-fasting) (10/31/2021 [...] Schumacher MD CHEMISTRY ORDERABLES [facility] [address] * Phosphorus (10/31/2021 12:21 PM EDT) Phosphorus 4.4 2.5 - 4.5 mg/dL [facility] Blood 10/31/2021 12:2 1 PM EDT 10/31/2021 12:27 PM EDT Narrative Resulting Agency Comment Spec In Lab Campos Schumacher MD CHEMISTRY ORDERABLES Performing Organization Address City/[facility]/ZIP Co de Phone Number [facility] [place] [address] * Magnesium (10/31/2021 12:21 PM EDT) Pathologist [facility] Magnesium 0.78 0.69 - 1.07 mmol/L [facility] Blood 10/31/2021 12:2 1 PM EDT 10/31/2021 12:27 PM EDT Narrative Resulting Agency Comment Spec In Lab Campos Schumacher MD CHEMISTRY ORDERABLES Performing Organization Address City/[facility]/ZIP Co de Phone Number [facility] [place] [address] * EKG 12 Lead (10/31/2021 12:08 PM EDT) Ventricular rate 59 BPM MUSE SYSTEM Atrial Rate 59 BPM MUSE SYSTEM P-R Interval 142 ms MUSE SYSTEM QRS Duration 82 ms MUSE SYSTEM Q-T Interval 408 ms MUSE SYSTEM QTC Calculated (Bezet) 403 ms MUSE SYSTEM Calculated P Midway 9 degrees MUSE SYSTEM Calculated R Midway 27 degrees MUSE SYSTEM Calculated T Midway 11 degrees MUSE SYSTEM INTERPRETATION Sinus bradycardia [...] CARE TEST O RDERABLES Performing Organization Address City/[facility]/ZIP Co de Phone Number [facility] [place] [address] * (ABNORMAL) Differential, Automated (10/31/2021 8:14 AM EDT) Neutrophil % 85.7 % [facility] Neutrophil Absolute 9.06(H) 1.70 - 6.10 x10(3)/mc L [facility] Lymph % 6.3 % [facility] Lymphocytes Abs 0.7(L) 0.9 - 3.2 x10(3)/mc L [facility] Monocyte % 7.1 % [facility] Monocyte Abs 0.8 0.3 - 0.9 x10(3)/mc L [facility] Eos % 0.2 % [facility] Eosinophils Abs 0.0 0.0 - 0.4 x10(3)/mc L [facility] Basophil % 0.3 % [facility] Baso Absolute 0.0 0.0 - 0.1 [...] MD HEMATOLOGY ORDERAB LES [facility] [place] [address] * (ABNORMAL) Hemogram (10/31/2021 8:14 AM EDT) White Blood Cell 10.6(H) 4.0 - 9.5 x10(3)/[facility] Red Blood Cell 4.26 4.00 - 5.21 x10(6)/[facility] Hemoglobin 13.0 11.7 - 15.5 g/dL [facility] Hematocrit 40.9 35.7 - 45.8 % [facility] Mean Cell Volume 96.0(H) 82.6 - 94.4 fL [facility] Mean Cell Hemoglobin 30.5 27.1 - 32.0 pg [facility] Mean Cell Hemoglobin Concentration 31.8 31.7 - 35.0 g/dL [facility] Platelet 210 145 - 357 x10(3)/[facility] LAB[facility]ATORY RDW Standard Deviation 47.4(H) 37.0 - 46.0 [facility] RDW coefficient of variation 13.2 11.5 - 14.1 % [facility] Mean Platelet Volume 9.8 7.6 - 12.9 [facility]ORY NRBC% auto 0.0 % [facility] NRBC Absolute 0.000 0.000 - 0.000 x10(3)/ L [facility] Blood 10/31/2021 8:14 AM EDT 10/31/2021 8:47 AM EDT Narrative Resulting Agency Comment Spec In Lab Melania Gaxiola MD HEMATOLOGY ORDERAB LES [facility] [place] [address] * POCT Glucose (10/31/2021 7:50 AM EDT) Glucose, POC 111 65 - 199 mg/dL [facility] Comment: Supplemental ranges: <140 mg/dL before meals <180 mg/dL all other times of the day Blood 10/31/2021 7:50 AM EDT 10/31/2021 7:50 AM EDT Campos Schumacher MD POINT OF CARE TEST O RDERAKE Performing Organization Address [facility] Co de Phone Number [facility] [place] [address] * POCT Glucose (10/31/2021 5:36 AM EDT) Glucose, POC 116 65 - 199 mg/dL [facility] Comment: Supplemental ranges: <140 mg/dL before meals <180 mg/dL all other times of the day Blood 10/31/2021 5:36 AM EDT 10/31/2021 5:36 AM EDT Campos Schumacher MD POINT OF CARE TEST O RDLEOBARDO Performing Organization Address City/[facility]/ZIP Co de Phone Number [facility] [place] [address] * POCT Glucose (10/30/2021 11:28 PM EDT) Glucose, POC 119 65 - 199 mg/dL [facility] Comment: Supplemental ranges: <140 mg/dL before meals <180 mg/dL all other times of the day Blood 10/30/2021 11:2 8 PM EDT 10/30/2021 11:28 PM EDT Campos Schumacher MD POINT OF CARE TEST O ALYSON Performing Organization Address City/[facility]/ZIP Co de Phone Number [facility] [place] [address] * POCT Glucose (10/30/2021 7:50 PM EDT) Glucose, POC 142 65 - 199 mg/dL [facility] Comment: Supplemental ranges: <140 mg/dL before meals <180 mg/dL all other times of the day Blood 10/30/2021 7:50 PM EDT 10/30/2021 7:50 PM EDT Campos Schumacher MD POINT OF CARE TEST O ALYSON Performing Organization Address [facility] Co de Phone Number [facility] [place] [address] * XR Cervical Spine 2 or 3 [...] who have questions please contact the health certified caregiver that requested your imaging first. ? Electronically signed by: YANET GANN [facility] ([phone]), at 10/31/2021 10:23 AM Narrative 10/31/2021 10:23 AM EDT EXAMINATION: XR [...] patients who have questions please contactthe health certified caregiver that requested your imaging first. Electronically signed by: YANET GANN [facility] ([phone]),at 10/31/2021 10:23 AM Campos Schumacher MD IMG DX ORDERABLES * POCT Glucose (10/30/2021 3:17 PM EDT) Glucose, POC 103 65 - 199 mg/dL [facility] Comment: Supplemental ranges: <140 mg/dL before meals <180 mg/dL all other times of the day Blood 10/30/2021 3:17 PM EDT 10/30/2021 3:17 PM EDT Campos Schumacher MD POINT OF CARE TEST O ALYSON Performing Organization Address [facility] de Phone Number [facility] [place] [address] * XR Fluoro No Rad <1Hr - [...] CARE TEST O ALYSON Performing Organization Address [facility] de Phone Number [facility] [place] [address] documented in this encounter Visit Diagnoses Not [...] Given 11/03/2021 9:14 AM EDT 2 .Inhalation clonazePAM (KlonoPIN) tablet 0.5 mg 0.5 mg, [...] - Reason: Patient/family refused)0534 (Given - Provider: aDvid Byers RN)1213 (Given - Provider: Ana Damian)1801 [...] Byers, FABIANA) 0900 (Given - Provider: Kanu Roberts RN) [...] Byers, FABIANA) 0909 (Given - Provider: Kanu Roberts, FABIANA)1500 (Due) heparin (porcine) (5,000 units/1 mL) subcutaneous injection 5,000 Units 5,000 Units, Subcutaneous, EVERY 12 HOURS SCHEDULED (2 times per day), First dose on Tue11/01/21 at 0930, Until Discontinued, Routine 0908 (Given - Provider: Sarah Hanson, FABIANA)2021 (Given - Provider: David Byers, RN) 911 (Given - Provider: Ana Damian)2011 (Given - Provider: David Byers, FABIANA) 09 (Given - Provider: Kanu Roberts, FABIANA) insulin [...] Comment: BG 100)0400 (Not Given - Provider: aDvid Byers RN - Reason: Order parameters not met - Comment: BG 103)0800 (Not Given - Provider: Kanu Roberts RN - Reason: Order parameters not met - Comment: POC Glucose of 110 mg/dL)1213 (Given - Provider: Ana aDmian)1517 (Given - Provider: Ana Damian)2000 (Not Given [...] Discontinued, DO NOT CRUSH OR OPEN, Routine 0904 (Given - Provider: Sarah Hanson RN) 0910 [...] and then remove for 12 hours, Routine 1748 (Patch Applied - Provider: Sarah Hanson RN) [...] RN) 909 (Given - Provider: Ana Damian) 09 (Given - Provider: Kanu Roberts RN) metoprolol [...] dose on Tue10/31/21 at 0900, Until Discontinued 901 (Given - Provider: Sarah Hanson RN) 09 (Given - Provider: Ana Damian) 09 (Given - Provider: Kanu Roberts, FABIANA) prazosin [...] be primed prior to first administration, Routine 1157 (Given - Provider: Sarah Hanson RN)2020 (Given [...] Intravenous, EVERY 1 MIN PRN, Starting on Tu11/03/21 at 1536, Until Tue11/04/21 at 1803, flush, Flush pertains to all indwelling lines. Flush per protocol found in the job aid using the link provided on this medication record., Recovery (Recovery-Hospital Unit), Routine traMADoL (Ultram) tablet 100 mg 100 mg, Oral, EVERY 6 HOURS PRN, Starting on 11/02/21 at 1221, Until Tue11/04/21 at 1803, Pain, [...] Pain, Routine 0904 (Given - Provider: Sarah G Crowner, RN) Linked Groups Order Group 1: POCT [...] Routine documented in this encounter Care Teams Loss Prevention Leader Relationship Specialty Start Date End Date Hoang Castellanos, AGRICULTURAL PURCHASING AGENT [address] [place] [address] PCP - General Family Medicine 03/12/20 documented as of this encounter
--- OUTSIDE RECORDS SUMMARY | 2024-08-01 18:32 | XMS_ITS | Encounter Summary ---
Author Organization [facility] [place] [address] Care Team Providers Care Sales Floor Manager Name Role Phone Hoang Castellanos APRN Primary Care Provider Reason for Visit * Reason Comments Medication Refill Encounter Details Date Type Department Care Team (Late st Contact Info) Description 10/26/2021 Refill Primary Care at [facility] [address] [place] [phone] Hoang Castellanos APRN [address] [facility] [place] [address] Social History Tobacco Use Types Packs/Day Years [...] * [facility] 10/26/2021 2:33 PM EDT Medication name: [...] filedocumented in this encounter Care Teams Sales Floor Manager Relationship Specialty Start Date End Date Hoang Castellanos, WIND SCIENCE AND PLANNING [address] [place] [address] PCP - General Family Medicine 03/12/20 documented as of this encounter
--- OUTSIDE RECORDS SUMMARY | 2024-08-01 18:32 | XMS_ITS | Encounter Summary ---
Author Organization [facility] [place] [address] Care Team Providers Care Comb Winder Name Role Phone Hoang Castellanos APRN Primary Care Provider Encounter Details Date Type Department Care Team (Late st Contact Info) Description 08/11/2021 [place] [address] Campos Puente MD [facility] [place] [address] Social History Tobacco Use Types Packs/Day Years [...] scheduling surgery. Please review and call patient [phone] Thank you Marli (Email sent to [facility]) * Telephone Encounter - Marli Hernández - 08/11/2021 11:40 AM EST Called pt scheduled CT C-spine for 08/18 send email and IB to [facility] to review on 08/19 then schedule surgery ~~~~~~~~~~~~~~~~~~~~~~~~~~~~~~~ Jeannie Rico - 08/06/21 Campos Puente MD Sent: Jennifer August 09, 2021 10:50 AM To: P [facility] [place] ?? Message CT cervical spine; have me review and then schedule surgery documented in this encounter Plan of Treatment Not on file documented as of this encounter Visit Diagnoses Not on filedocumented in this encounter Care Teams Comb Winder Relationship Specialty Start Date End Date Hoang Castellanos, SAM [address] [place] [address] PCP - General Family Medicine 03/12/20 documented as of this encounter
--- OUTSIDE RECORDS SUMMARY | 2024-08-01 18:32 | XMS_ITS | Encounter Summary ---
[place] [address] Care Team Providers Care Polygraph Technician Name Role Phone Hoang Castellanos APRN Primary Care Provider Encounter Details Date Type Department Care Team (Late st Contact Info) Description 10/05/2021 Telephone [place] [address] Tamar Velazquez Social History Tobacco Use Types [...] ASK: TRAVEL ???Have you travelled outside of [place] ([place], [place], [place], [place], [place], [place]) in the past 14 days??? 2. ASK: [...] Transfer patient to the Covid-19 Hotline Number ([phone]) for further instructions. If 'No' to all of the questions above Is this the first test for Covid 19 If no, please list date of previous test, result, and type of test (Molecular, Antigen, Antibody orunknown): Resides in Nursing/snf or other residential setting No Employee or [...] on filedocumented in this encounter Care Teams Polygraph Technician Relationship Specialty Start Date End Date Hoang Castellanos APRN [address] [place] [address] PCP - General Family Medicine 03/12/20 documented as of this encounter
--- OUTSIDE RECORDS SUMMARY | 2024-08-01 18:32 | XMS_ITS | Encounter Summary ---
[place] [address] Care Team Providers Care Muck Operator Name Role Phone Hoang Castellanos APRN Primary Care Provider Reason for Visit * Reason Onset Date Comments Other 10/28/2021 Test results Encounter Details Date Type Department Care Team (Late st Contact Info) Description 10/28/2021 [place] [phone] Laurel Ordoñez RN Other (Test results) Social [...] on filedocumented in this encounter Care Teams Muck Operator Relationship Specialty Start Date End Date Hoang Castellanos, REGIONAL CONSTRUCTION MANAGER [address] [place] [address] PCP - General Family Medicine 03/12/20 documented as of this encounter
--- OUTSIDE RECORDS SUMMARY | 2024-08-01 18:32 | XMS_ITS | Encounter Summary ---
Author Organization [facility] Address [facility] [place] [address] Care Team Providers Care Health Practice Manager Name Role Phone Hoang Castellanos APRN Primary Care Provider Reason for Referral * Home Health Care (Routine) - Closed Specialty Diagnoses / Procedures Referred By Contdavide t Referred To Contact Physical Therapy Diagnoses Cervicalgia Cervical spinal stenosis Generalized weakness Hoang Castellanos APRN [address] [place] [address] Visiting Nurse[facility] [address] [address] Referral ID Status Reason Start Date Expiration Date V isits Requested Visits Authorized [id number] Closed Continuity of Care 08/31/2021 02/27/2022 12 12 Encounter Details Date Type Department Care Team (Latest Contact Info) Description 08/31/2021 10:00 AM EST TH Visit (TeleHealth) Primary Care at [facility] [address] [facility] [place] [address] Hoang Castellanos APRN [address] [place] [address] Cervicalgia; Cervical spinal stenosis; Generalized weakness; Anxiety [...] this encounter Progress Notes * Hoang Castellanos, SUPERCHARGER REPAIR SUPERVISOR - 08/31/2021 10:00 AM EST [facility] Telehealth Encounter Nurse Call: Patient called [...] who presents for a telehealth visit with [facility] Primary Care. She is having surgery coming [...] office this morning. She was sent to production scheduler-awaiting inpatient bed to open up. Neck pain Stressful-emotional pain Supposed to get choices plus care, needs to move apts by November 21 [facility] is helping but they are not getting anywhere either. Current CM is Angela ([phone]). Feeling hopeless, would like to be able [...] do of a [address] [place] in family preservation caseworker from [facility] who are assisting both her [...] this encounter. (Established patient total visit time: 03439 - 20min, 78066 - 30 min, 07068 - 40 min; New patient total visit times: 27084 - 30 min, 66861 - 45 min, 53528 - 60 min) documented in this encounter [...] unspecified documented in this encounter Care Teams Health Practice Manager Relationship Specialty Start Date End Date Hoang Castellanos APRN [address] [place] [address] PCP - General Family Medicine 03/12/20 documented as of this encounter
--- OUTSIDE RECORDS SUMMARY | 2024-08-01 18:32 | XMS_ITS | Encounter Summary ---
Author Organization [facility] Address [facility] [place] [address] Care Team Providers Care Steel Detailer Name Role Phone Hoang Castellanos APRN Primary Care Provider Encounter Details Date Type Department Care Team (Late st Contact Info) Description 06/24/2021 Home Care Visit [facility] [address] [place] [phone] Farrah Jama [facility] CUTOVER Social History Tobacco Use Types Packs/Day [...] on filedocumented in this encounter Care Teams Steel Detailer Relationship Specialty Start Date End Date Hoang Castellanos APRN [address] [place] [address] PCP - General Family Medicine 03/12/20 documented as of this encounter
--- OUTSIDE RECORDS SUMMARY | 2024-08-01 18:32 | XMS_ITS | Encounter Summary ---
Author Organization [facility] [place] [address] Care Team Providers Care Horticultural Technical Officer Name Role Phone Hoang Castellanos APRN Primary Care Provider Reason for Visit * Reason Comments Medication Refill Encounter Details Date Type Department Care Team (Late st Contact Info) Description 09/01/2021 Refill Primary Care at [facility] [address] [place] [phone] Hoang Castellanos APRN [address] [facility] [facility] [place] [address] Benign essential hypertension; Hyperlipidemia, unspecified hyperlipidemia type; [...] Name: amLODIPine Besylate 5 MG Tablet] 28 [id number] Sig: TAKE ONE (1) TABLET BY MOUTH [...] reflux documented in this encounter Care Teams Horticultural Technical Officer Relationship Specialty Start Date End Date Hoang Castellanos, FINE GRADE OPERATOR [address] [place] [address] PCP - General Family Medicine 03/12/20 documented as of this encounter
--- OUTSIDE RECORDS SUMMARY | 2024-08-01 18:32 | XMS_ITS | Encounter Summary ---
Author Organization [facility] [place] [address] Care Team Providers Care Mental Health Social Worker Name Role Phone Hoang Castellanos APRN Primary Care Provider Reason for Visit * Reason Comments Medication Refill Encounter Details Date Type Department Care Team (Late st Contact Info) Description 09/14/2021 Refill Primary Care at [facility] [address] [place] [phone] Hoang Castellanos APRN [address] [facility] [facility] [place] [address] Cervicalgia; Chronic pain syndrome Social History Tobacco [...] syndrome documented in this encounter Care Teams Mental Health Social Worker Relationship Specialty Start Date End Date Hoang Castellanos, SYSTEMS MANAGEMENT CONSULTANT [address] [place] [address] PCP - General Family Medicine 03/12/20 documented as of this encounter
--- OUTSIDE RECORDS SUMMARY | 2024-08-01 18:32 | XMS_ITS | Encounter Summary ---
[place] [address] Care Team Providers Care Data Base Administrator Name Role Phone Hoang Castellanos APRN Primary Care Provider Reason for Referral * Diagnostic Test (Routine) - Closed Specialty Diagnoses / Procedures Referred By Contac t Referred To Contact Radiology Diagnoses Cervical spondylosis Procedures CT Cervical Spine wo Contrast Campos Puente MD [facility] [place] [address] [facility] [place] [address] Referral ID Status Reason Start Date Expiration Date V isits Requested Visits Authorized [id number] Closed Specialty Service Requested 08/09/2021 02/06/2023 1 1 Reason for Visit * Diagnostic Test (Routine) - Closed Specialty Diagnoses / Procedures Referred By Contac t Referred To Contact Radiology Diagnoses Cervical spondylosis Procedures CT Cervical Spine wo Contrast Campos Puente MD [facility] [place] [address] [facility] [place] [address] Referral ID Status Reason Start Date Expiration Date V isits Requested Visits Authorized [id number] Closed Specialty Service Requested 08/09/2021 02/06/2023 1 1 Encounter Details Date Type Department Care Team (Latest Contact Info) Description 08/18/2021 7:49 AM EST - 08/18/2021 11:59 PM EST Hospital Encounter CT Scan at [facility] [place] [address] Campos Puente MD [facility] [place] [address] Cervical spondylosis Discharge Disposition: Home Social History [...] Sustained Release 24 hrIndications:Coronary artery disease involving [place] coronary artery of [place] heart without angina pectoris TAKE ONE (1) TABLET BY MOUTH EVERY DAY 28 tablet 02/17/2021 01/18/2022 FeroSuL 325 mg (65 mg iron) Tablet TAKE ONE (1) TABLET BY MOUTH THREE TIMES A WEEK 12 tablet 11/26/2020 10/26/2021 prazosin (Minipress) 2 mg Capsule TAKE THREE (3) CAPSULES BY MOUTH DAILY AT BEDTIME 84 each 10/31/2020 09/28/2021 Ventolin HFA 90 mcg/actuation HFA Aerosol InhalerIndications:Tracer Lathe Set Up Operator randell obstructive pulmonary disease, unspecified COPD [...] 12/12/2019 12/11/2021 documented as of this encounter Plan of [...] have questions please contact the health care nurse rn that requested your imaging first. ? Narrative [...] who have questions please contactthe health care nurse rn that requested your imaging first. Campos Puente MD IMG CT ORDERABLES documented in this encounter Visit Diagnoses Diagnosis Cervical spondylosis Cervical spondylosis without myelopathy documented in this encounter Care Teams Data Base Administrator Relationship Specialty Start Date End Date Hoang Castellanos, TALENT CONSULTANT [address] [place] [address] PCP - General Family Medicine 03/12/20 documented as of this encounter
--- OUTSIDE RECORDS SUMMARY | 2024-08-01 18:32 | XMS_ITS | Encounter Summary ---
Author Organization [facility] Address [facility] [place] [address] Care Team Providers Care Assembler Bonding Name Role Phone Hoang Castellanos APRN Primary Care Provider [phone] Encounter Details Date Type Department Care Team (Late st Contact Info) Description 06/06/2022 Plan of Care Documentation [facility] Choices for Care [address] [place] [phone] Social History Tobacco Use Types Packs/Day [...] filedocumented in this encounter Care Teams Assembler Bonding Relationship Specialty Start Date End Date Hoang Castellanos APRN [address] [place] [address] PCP - General Family Medicine 03/12/20 documented as of this encounter
--- OUTSIDE RECORDS SUMMARY | 2024-08-01 18:32 | XMS_ITS | Encounter Summary ---
Author Organization [facility] Address [facility] [place] [address] Care Team Providers Care Jig Mill Operator Name Role Phone Hoang Castellanos APRN Primary Care Provider Reason for Referral * Home Health Care (Routine) - Closed Specialty Diagnoses / Procedures Referred By Contdavide t Referred To Contact Home Health Agency Diagnoses Cervical spondylosis Cervicalgia Eden Lemos MD [address] [place] [address] Visiting Nurse, [facility] & [address] [address] Referral ID Status Reason Start Date Expiration Date V isits Requested Visits Authorized [id number] Closed PT/OT 09/04/2021 03/03/2022 1 1 Encounter Details Date Type Department Care Team (Late st Contact Info) Description 09/03/2021 Telephone Primary Care at [facility] [address] [place] [address] Lay Rosas, RN Social History Tobacco Use [...] message from Elena a PT from the [facility] stating they admitted Jeannie to their service and will provide PT Twice a week for six weeks. Elena is also requesting a referral for OT and a regional medical director which she feels Jeannie can benefit from. Requested routed to provider documented in this encounter Plan of Treatment Scheduled Referrals Name Type Priority Associated Diagnoses Orde r Schedule Referral to Home Health - Clinic Use Outpatient Referral Routine Syncope, unspecified syncope type Ordered: 09/04/2021 documented as of this encounter Visit Diagnoses Diagnosis Syncope, unspecified syncope type documented in this encounter Care Teams Jig Mill Operator Relationship Specialty Start Date End Date Hoang Castellanos APRN [address] [place] [address] PCP - General Family Medicine 03/12/20 documented as of this encounter
--- OUTSIDE RECORDS SUMMARY | 2024-08-01 18:32 | XMS_ITS | Encounter Summary ---
[place] [address] Care Team Providers Care Grease Renderer Name Role Phone Hoang Castellanos APRN Primary Care Provider Reason for Referral * Diagnostic Test (Routine) - Closed Specialty Diagnoses / Procedures Referred By Contac t Referred To Contact Radiology Diagnoses Cervical spondylosis Procedures CT Cervical Spine wo Contrast Campos Puente MD [facility] [place] [address] [address] [facility] [place] [address] Referral ID Status Reason Start Date Expiration Date V isits Requested Visits Authorized [id number] Closed Specialty Service Requested 08/09/2021 02/06/2023 1 1 Encounter Details Date Type Department Care Team (Late st Contact Info) Description 08/06/2021 10:00 AM EST [place] [address] Campos Puente MD [facility] [place] [address] Cervical spondylosis Social History Tobacco [...] is accompanied to this visit by her hand bookbinder. She states that her function has been [...] have questions please contact the health rn progressive care unit that requested your imaging first. ? Electronically signed by: Siomara Rahman MD, [facility] ([phone]), at 08/18/2021 10:43 AM Narrative 08/18/2021 10:43 [...] who have questions please contactthe health rn progressive care unit that requested your imaging first. Campos Puente MD IMG CT ORDERABLES documented in this encounter Visit Diagnoses Diagnosis Cervical spondylosis Cervical spondylosis without myelopathy Cervical spondylosis Cervical spondylosis without myelopathy documented in this encounter Care Teams Grease Renderer Relationship Specialty Start Date End Date Hoang Castellanos, UPTWISTER TENDER [address] [place] [address] PCP - General Family Medicine 03/12/20 documented as of this encounter
--- OUTSIDE RECORDS SUMMARY | 2024-08-01 18:32 | XMS_ITS | Encounter Summary ---
Author Organization [facility] [place] [address] Care Team Providers Care Physician Relations Manager Name Role Phone Hoang Castellanos APRN Primary Care Provider Encounter Details Date Type Department Care Team (Late st Contact Info) Description 08/04/2021 9:00 AM EST TH Visit (TeleHealth) [place] [address] Gurjit Bass MD [facility] [place] [address] Myelopathy Social History Tobacco Use Types Packs/Day [...] Gait ataxia [facility]: [facility] is aware [facility] [...] me, as I had followed her from [phone]. Has a complex medical and neurological history [...] chemistry and liver profile, thyroid function tests, [id number], TSH level, CK and hemoglobin A1c and acetylcholine receptor antibody were all normal or negative. Dr Baltzaar and requested and obtained MRI scan of [...] RS Psychiatry ??? 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 Her sister Who lives in [place] advises her regarding medical decisions Review of [...] 30 tablet 1 ??? Miscellaneous Medical Supply [facility] 1 walker on wheels with seat 1 [...] lancets 30 gauge Misc 1 each by [facility].(Non-Drug; Combo Route) route daily. 100 each 3 [...] necessary Gurjit Bass MD [place] [address] Pager: [phone], #[phone] Email: [email or web address] CC: Hoang Baltazar MD documented in this encounter Plan of Treatment Not on file documented as of this encounter Visit Diagnoses Diagnosis Myelopathy Unspecified disease of spinal cord documented in this encounter Care Teams Physician Relations Manager Relationship Specialty Start Date End Date Hoang Castellanos APRN [address] [place] [address] PCP - General Family Medicine 03/12/20 documented as of this encounter
--- OUTSIDE RECORDS SUMMARY | 2024-08-01 18:32 | XMS_ITS | Encounter Summary ---
Author Organization Replaced By [facility] [place] [address] Care Team Providers Care Digital Printer Operator Name Role Phone Hoang Castellanos APRN Primary Care Provider Reason for Visit * Reason Onset Date Comments TeleHealth 07/28/2021 Encounter Details Date Type Department Care Team (Late st Contact Info) Description 07/28/2021 Telephone [place] [phone] Gurjit Bass MD [facility] [place] [address] TeleHealth Social History Tobacco Use Types Packs/Day [...] on filedocumented in this encounter Care Teams Digital Printer Operator Relationship Specialty Start Date End Date Hoang Castellanos, SAM [address] [place] [address] PCP - General Family Medicine 03/12/20 documented as of this encounter
--- OUTSIDE RECORDS SUMMARY | 2024-08-01 18:33 | XMS_ITS | Encounter Summary ---
[place] [address] Care Team Providers Care Hydrate Control Tender Name Role Phone Hoang Castellanos APRN Primary Care Provider [phone] Encounter Details Date Type Department Care Team (Late st Contact Info) Description 04/07/2021 12:45 PM EDT Laboratory Appointment Lab [address] [place] [phone] Social History Tobacco Use Types Packs/Day Years [...] 04/07/2021 1:29 PM EDT BASIC METABOLIC PANEL Routine 04/07/2021 1:29 PM EDT documented in this encounter Results * Lamotrigine Lvl (04/07/2021 1:29 PM EDT) Pathologist [facility] Lamotrigine Lvl (NOVEMBER) 3.5 2.5 - 15.0 mcg/mL [facility] Comment: ADDITIONAL INFORMATION This test was developed and its performance characteristics determined by [facility] in a manner consistent with CLIA requirements. This test has not been cleared or approved by the U.S. Food and Drug Administration. Test Performed by: [facility] [place] [address] Residential Care Facility Manager: Skinny Reyes M.D. Ph.D.; CLIA# [id number] Blood Venous Draw / Unknown 04/07/2021 1:29 PM EDT 04/07/2021 4:27 PM EDT Narrative Resulting Agency Comment Spec In Lab Gurjit Bass MD LAB SEND OUT ORDERAB LES [facility] [place] [address] * Vitamin B12 (04/07/2021 1:29 PM EDT) [facility] Vitamin B12 1,018 232 - 1,245 pg/mL [facility] Blood Venous Draw / Unknown 04/07/2021 1:29 PM EDT 04/07/2021 2:08 PM EDT Narrative Resulting Agency Comment Spec In Lab Gurjit Bass MD CHEMISTRY ORDERABLES [facility] [place] [address] * Basic Metabolic Panel (non-fasting) (04/07/2021 1:29 PM EDT) Glucose 124 65 - 199 mg/dL [facility] Comment:Diabetes: >=200 mg/d L plus symptoms Blood Urea Nitrogen 18 8 - 18 mg/dL [facility] Creatinine 0.81 0.70 - 1.20 mg/dL [facility] Sodium 140 135 - 145 mmol/L [facility] Potassium 3.9 3.5 - 5.0 mmol/L [facility] Comment: Please note: ??Patients with WBC >100,000 may have falsely elevated Potassium levels. ??For accurate Potassium quantification in these patients send serum separator tube (gold top) for subsequent determinations. ??Contact the Clinical Chemistry Laboratory if there are any questions. Chloride 101 98 - 107 mmol/L [facility] Carbon Dioxide 31 22 - 31 mmol/L [facility] Anion Gap 8 5 - 15 mmol/L [facility] Calcium 9.6 8.5 - 10.5 mg/dL [facility] Est Glomerular Filtration Rate 79 >=60 mL/min/1. 73 m?? [facility] Comment: This patient? s estimated [...] Bass MD CHEMISTRY ORDERABLES Performing Organization Address City/[facility] Co de Phone Number [facility] [place] [address] * (ABNORMAL) Hepatic Function Panel (04/07/2021 1:29 PM EDT) Pathologist [facility] Protein, Total 6.6 6.1 - 8.0 gm/dL [facility] Albumin 4.0 3.2 - 5.2 gm/dL [facility] Aspartate Aminotransferase 9 0 - 30 unit/L [facility] Alanine Aminotransferase 10 0 - 30 unit/L [facility] Alkaline Phosphatase 125(H) 35 - 105 unit/L [facility] Bilirubin, Total 0.2 0.2 - 1.3 mg/dL [facility] Bilirubin, Direct 0.1 0.0 - 0.3 mg/dL [facility] Blood Venous Draw / Unknown 04/07/2021 1:29 PM EDT 04/07/2021 2:08 PM EDT Narrative Resulting Agency Comment Spec In Lab Gurjit Bass MD CHEMISTRY ORDERABLES Performing Organization Address [facility] Co de Phone Number [facility] [place] [address] * T4 Total (04/07/2021 1:29 PM EDT) [facility] T4 Total 7.4 5.3 - 11.6 mcg/dL [facility] Comment: Reference Interval (mcg/dL): Females: ??First Trimester: 6.3-13.5 ??Second Trimester: 7.1-14.3 ??Third Trimester: 6.9-14.1 Blood Venous Draw / Unknown 04/07/2021 1:29 PM EDT 04/07/2021 2:08 PM EDT Narrative Resulting Agency Comment Spec In Lab Gurjit Bass MD CHEMISTRY ORDERABLES Performing Organization Address [facility]/ZIP Co de Phone Number [facility] [place] [address] * TSH (04/07/2021 1:29 PM EDT) [facility] Thyroid Stimulating Hormone 2.27 0.27 - 4.20 mcIU/mL [facility] Comment: Reference Interval (mcIU/mL): Females: ??First Trimester: 0.23-3.88 ??Second Trimester: 0.22-3.90 ??Third Trimester: 0.44-4.66 Blood Venous Draw / Unknown 04/07/2021 1:29 PM EDT 04/07/2021 2:08 PM EDT Narrative Resulting Agency Comment Spec In Lab Gurjit Bass MD CHEMISTRY ORDERABLES Performing Organization Address City/[facility]/ZIP Co de Phone Number [facility] [place] [address] * (ABNORMAL) Differential, Automated (04/07/2021 1:29 PM EDT) [facility] Neutrophil % 71.8 % [facility] Neutrophil Absolute 6.73(H) 1.70 - 6.10 x10(3)/mc L [facility] Lymph % 20.4 % [facility] Lymphocytes Abs 1.9 0.9 - 3.2 x10(3)/mc L [facility] Monocyte % 6.2 % [facility] Monocyte Abs 0.6 0.3 - 0.9 x10(3)/mc L [facility] Eos % 0.7 % [facility] Eosinophils Abs 0.1 0.0 - 0.4 x10(3)/mc L [facility] Basophil % 0.6 % [facility] Baso Absolute 0.1 0.0 - 0.1 x10(3)/[facility] Immature Gran % 0.30 % [facility] Comment: Immature granulocytes(IG's)percentage and absolute count will include metamyelocytes, myelocytes, and promyelocytes. Blood smears from CBCs yielding IG's will be scanned manually for concordance. If this scan disagrees with the automated IG or if promyelocytes are noted, a manual differential will be performed. Immature Gran Absolute 0.03 0.00 - 0.04 x10(3)/[facility] Blood Venous Draw / Unknown 04/07/2021 1:29 PM EDT 04/07/2021 2:08 PM EDT Narrative Resulting Agency Comment Spec In Lab Gurjit Bass MD HEMATOLOGY ORDERABLE S Performing Organization Address City/State/[facility] Co de Phone Number [facility] [place] [address] * (ABNORMAL) Hemogram (04/07/2021 1:29 PM EDT) White Blood Cell 9.4 4.0 - 9.5 x10(3)/[facility] Red Blood Cell 4.36 4.00 - 5.21 x10(6)/[facility] Hemoglobin 13.8 11.7 - 15.5 gm/dL [facility] Hematocrit 42.1 35.7 - 45.8 % [facility] Mean Cell Volume 96.6(H) 82.6 - 94.4 fL [facility] Mean Cell Hemoglobin 31.7 27.1 - 32.0 pg [facility] Mean Cell Hemoglobin Concentration 32.8 31.7 - 35.0 gm/dL [facility] Platelet 236 145 - 357 x10(3)/[facility] RDW Standard Deviation 49.1(H) 37.0 - 46.0 fL [facility] RDW coefficient of variation 13.7 11.5 - 14.1 % [facility] Mean Platelet Volume 10.1 7.6 - 12.9 fL [facility] NRBC% auto 0.0 % [facility] NRBC Absolute 0.000 0.000 - 0.000 x10(3)/mc L [facility] Blood Venous Draw / Unknown 04/07/2021 1:29 PM EDT 04/07/2021 2:08 PM EDT Narrative Resulting Agency Comment Spec In Lab Gurjit Bass MD HEMATOLOGY ORDERABLE S [facility] [place] [address] * Lyme IgG & IgM Antibody (04/07/2021 1:29 PM EDT) Lyme Antibody Neg Neg [facility] Blood Venous Draw / Unknown 04/07/2021 1:29 PM EDT 04/08/2021 7:10 AM EDT Narrative Resulting Agency Comment Spec In Lab Gurjit Bass MD IMMUNOLOGY ORDERABLE S [facility] [place] [address] documented in this encounter Visit Diagnoses Not on filedocumented in this encounter Care Teams Hydrate Control Tender Relationship Specialty Start Date End Date Hoang Castellanos, COPPER ROLLER HANDLER PRINTING [address] [place] [address] PCP - General Family Medicine 03/12/20 documented as of this encounter
--- OUTSIDE RECORDS SUMMARY | 2024-08-01 18:33 | XMS_ITS | Encounter Summary ---
[place] [address] Care Team Providers Care Biztalk Administrator Name Role Phone Hoang Castellanos APRN Primary Care Provider Encounter Details Date Type Department Care Team (Late st Contact Info) Description 04/13/2021 [place] [address] Marli Hernández Social History Tobacco Use Types [...] - 04/13/2021 1:44 PM EDT Jeannie Rico [phone] Caller: Symone RITCHIE from [facility] is out in the field. I spoke with Melania JUNG from the [facility] Reason for call: I let Melania know [...] caller: anytime Best number to reach caller: [phone] Reason for call: Calling to confirm if [...] on filedocumented in this encounter Care Teams Biztalk Administrator Relationship Specialty Start Date End Date Hoang Castellanos APRN [address] [place] [address] PCP - General Family Medicine 03/12/20 documented as of this encounter
--- OUTSIDE RECORDS SUMMARY | 2024-08-01 18:33 | XMS_ITS | Encounter Summary ---
Author Organization [facility] [address] Care Team Providers Care Pecan Grower Name Role Phone Hoang Castellanos APRN Primary Care Provider Encounter Details Date Type Department Care Team (Late st Contact Info) Description 2021 Telephone Primary Care at [facility] [place] [phone] Jeannie Luciano, RN Social History Tobacco Use [...] EDT Message received from Porfirio pharmacist at [facility] re: rx sent for nicotine gum/lozenges. They [...] disorder documented in this encounter Care Teams Pecan Grower Relationship Specialty Start Date End Date Hoang Castellanos APRN [address] [place] [address] PCP - General Family Medicine 03/12/20 documented as of this encounter
--- OUTSIDE RECORDS SUMMARY | 2024-08-01 18:33 | XMS_ITS | Encounter Summary ---
[facility] [place] [address] Care Team Providers Care Waste Oil Pumper Name Role Phone Trever Castellanos APRN Primary Care Provider Reason for Visit * Reason Onset Date Comments New Medication Request 05/20/2021 Encounter Details Date Type Department Care Team (Late st Contact Info) Description 05/20/2021 Telephone Primary Care at [facility] [place] [phone] Jeannie Luciano RN New Medication Request Social [...] BID was going to be sent to [facility] after her conversation with trever Castellanos APRN. Routed note to PCP. documented in this encounter Plan of Treatment Not on file documented as of this encounter Visit Diagnoses Diagnosis Cervicalgia Chronic pain syndrome documented in this encounter Care Teams Waste Oil Pumper Relationship Specialty Start Date End Date Trever Castellanos, IT INFRASTRUCTURE PROJECT MANAGER [address] [place] [address] PCP - General Family Medicine 03/12/20 documented as of this encounter
--- OUTSIDE RECORDS SUMMARY | 2024-08-01 18:33 | XMS_ITS | Encounter Summary ---
[place] [address] Care Team Providers Care Marine Service Manager Name Role Phone Hoang Castellanos APRN Primary Care Provider Encounter Details Date Type Department Care Team (Late st Contact Info) Description 06/23/2021 10:30 AM EST Clinical [place] [phone] Social History Tobacco Use Types Packs/Day Years [...] in the past. Pt is here with Computer Systems Integrator Angela. Pre-operative instruction booklet reviewed. Patient verbalizes [...] on filedocumented in this encounter Care Teams Marine Service Manager Relationship Specialty Start Date End Date Hoang Castellanos, SAM [address] [place] [address] PCP - General Family Medicine 03/12/20 documented as of this encounter
--- OUTSIDE RECORDS SUMMARY | 2024-08-01 18:33 | XMS_ITS | Encounter Summary ---
Author Organization [facility] [address] Care Team Providers Care Doughnut Icer Name Role Phone Hoang Castellanos APRN Primary Care Provider Reason for Visit * Reason Comments Medication Refill Encounter Details Date Type Department Care Team (Late st Contact Info) Description 06/16/2021 Refill Primary Care at [facility] [address] [place] [phone] Hoang Castellanos APRN [address] [place] [address] Cervicalgia; Chronic pain syndrome Social History Tobacco [...] * Telephone Encounter - Maria D Joshi, [facility] - 06/16/2021 1:29 PM EST Medication name: [...] syndrome documented in this encounter Care Teams Doughnut Icer Relationship Specialty Start Date End Date Hoang Castellanos APRN [address] [place] [address] PCP - General Family Medicine 03/12/20 documented as of this encounter
--- OUTSIDE RECORDS SUMMARY | 2024-08-01 18:33 | XMS_ITS | Encounter Summary ---
Author Organization [facility] [place] [address] Care Team Providers Care Optometry Professor Name Role Phone Hoang Castellanos APRN Primary Care Provider [phone] Reason for Visit * Consultation (Routine) - Closed Specialty Diagnoses / Procedures Referred By Contac t Referred To Contact Endocrinology Diagnoses Osteoporosis, unspecified osteoporosis type, unspecified pathological fracture presence Hoang Castellanos APRN [address] [place] [address] [facility] [address] [place] [phone] Referral ID Status Reason Start Date Expiration Date V isits Requested Visits Authorized [id number] Closed Specialty Service Requested 2021 2022 12 12 Encounter Details Date Type Department Care Team (Latest Contact Info) Description 06/22/2021 2:15 PM EST TH Visit (TeleHealth) [place] [address] Michael Espinoza MD [facility] [place] [address] Vitamin D deficiency; Adult osteomalacia [...] BIOPSY performed by Ken Sanders MD at [facility] END[facility] ??? PRO UPPER GI ENDOSCOPY, BIOPSY N/A 09/19/2018 UPPER GASTROINTESTINAL ENDOSCOPY,WITH BIOPSY SINGLE OR MULTIPLE (WRVU 2.49) performed by Tyron Mercado MD at [facility] ENDOS[facility] ??? TONSILLECTOMY ??? UPPER GI ENDOSCOPY, EXAM 12/04/2010 UPPER GI ENDOSCOPY performed by DEE WRIGHT at [facility] Social history Social History Socioeconomic History [...] BIOPSY performed by Ken Sanders MD at [facility] ENDOSCOPY ??? PRO UPPER GI ENDOSCOPY, BIOPSY N/A 09/19/2018 UPPER GASTROINTESTINAL ENDOSCOPY,WITH BIOPSY SINGLE OR MULTIPLE (WRVU 2.49) performed by Tyron Mercado MD at [facility] ENDOSCOPY ??? TONSILLECTOMY ??? UPPER GI ENDOSCOPY, EXAM 12/04/2010 UPPER GI ENDOSCOPY performed by DEE WRIGHT at [facility] Current Outpatient Medications: ??? tiZANidine (Zanaflex) [...] tablet, Rfl: 1 ??? Miscellaneous Medical Supply [facility], 1 walker on wheels with seat, Disp: [...] ??? 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
--- OUTSIDE RECORDS SUMMARY | 2024-08-01 18:33 | XMS_ITS | Encounter Summary ---
Author Organization [facility] [place] [address] Care Team Providers Care Recruiting Internship Name Role Phone Hoang Castellanos APRN Primary Care Provider Encounter Details Date Type Department Care Team (Latest Contact Info) Description 2021 10:50 AM EDT Laboratory Appointment Laboratory at [facility] [address] [place] [phone] Seizures; Myelopathy; Bipolar affective disorder, remission status [...] disorder, remission status unspecified COMPREHENSIVE METABOLIC PANEL Routine 2021 10:54 AM EDT Seizures Myelopathy Bipolar affective disorder, remission status unspecified documented in this encounter Results * Differential, Automated (2021 10:54 AM EDT) Neutrophil % 72.5 % [facility] Neutrophil Absolute 5.56 1.70 - 6.10 x10(3)/mcL [facility] Lymph % 18.1 % [facility] Lymphocytes Abs 1.4 0.9 - 3.2 x10(3)/mcL [facility] Monocyte % 8.0 % [facility] Monocyte Abs 0.6 0.3 - 0.9 x10(3)/mcL [facility] Eos % 0.8 % [facility] Eosinophils Abs 0.1 0.0 - 0.4 x10(3)/mcL [facility] Basophil % 0.5 % [facility] Baso Absolute 0.0 0.0 - 0.1 x10(3)/mcL [facility] Immature Gran % 0.10 % [facility]ORY Comment: Immature granulocytes(IG's)percentage and absolute count will include metamyelocytes, myelocytes, and promyelocytes. Blood smears from CBCs yielding IG's will be scanned manually for concordance. If this scan disagrees with the automated IG or if promyelocytes are noted, a manual differential will be performed. Immature Gran Absolute 0.01 0.00 - 0.04 x10(3)/mcL [facility] Blood 2021 10:5 4 AM EDT 2021 11:55 AM EDT Narrative Resulting Agency Comment Spec In Lab Gurjit Bass MD HEMATOLOGY ORDERABLE S Performing Organization Address City/[facility]/ZIP Co de Phone Number LABORATORY [address] [place] [address] * Hemoglobin A1c (2021 10:54 AM EDT) Hemoglobin A1c 5.6 4.3 - 5.6 % [facility] Estimated Average Glucose 114 mg/dL [facility] Blood 2021 10:5 4 AM EDT 2021 11:55 AM EDT Narrative Resulting Agency Comment Spec In Lab Hoang Castellanos APRN CHEMISTRY ORDERABLES Performing Organization Address City/[facility]/ZIP Co de Phone Number LABORATORY [address] [place] [address] * Lamotrigine Lvl (2021 10:54 AM EDT) Lamotrigine Lvl (NOVEMBER) 3.7 2.5 - 15.0 mcg/mL LABORATORY Comment: ADDITIONAL INFORMATION This test was developed and its performance characteristics determined by [facility] in a manner consistent with CLIA requirements. This test has not been cleared or approved by the U.S. Food and Drug Administration. Test Performed by: [facility] - [facility] [address] [place] [address] It Project Coordinator: Skinny Reyes M.D. Ph.D.; CLIA# [id number] Blood 2021 10:5 4 AM EDT 2021 4:54 PM EDT Narrative Resulting Agency Comment Spec In Lab Gurjit Bass MD LAB SEND OUT ORDERAB LES Performing Organization Address [facility]/ZIP Co de Phone Number [facility] [address] [place] [address] * Vitamin B12 (2021 10:54 AM EDT) Pathologist [facility] Vitamin B12 1,017 232 - 1,245 pg/mL [facility] Blood 2021 10:5 4 AM EDT 2021 4:48 PM EDT Narrative Resulting Agency Comment Spec In Lab Gurjit Bass MD CHEMISTRY ORDERABLES Performing Organization Address [facility] Co de Phone Number [facility] [place] [address] * (ABNORMAL) Comprehensive metabolic panel (non-fasting) (2021 10:54 AM EDT) Glucose 90 65 - 199 mg/dL [facility] Comment:Diabetes: >=200 mg/d L plus symptoms Blood Urea Nitrogen 19(H) 8 - 18 mg/dL [facility] Creatinine [...] Chloride 101 98 - 107 mmol/L [facility] Carbon Dioxide 26 22 - 31 mmol/L [facility] Anion Gap 12 5 - 15 mmol/L [facility] Calcium 9.8 8.5 - 10.5 mg/dL [facility] Protein, Total 6.9 6.1 - 8.0 g/dL [facility] Albumin 4.1 3.2 - 5.2 g/dL [facility] Aspartate Aminotransferase 11 0 - 30 unit/L [facility] Alanine Aminotransferase 8 0 - 30 unit/L [facility] Alkaline Phosphatase 125(H) 35 - 105 unit/L [facility] Bilirubin, Total 0.3 0.2 - 1.3 mg/dL [facility] Est Glomerular Filtration Rate 94 >=60 mL/min/1. 73 m?? LABORATORY Comment: [...] Gurjit Bass MD CHEMISTRY ORDERABLES LABORATORY [address] [place] [address] * T4 Total (2021 10:54 AM EDT) T4 Total 8.2 5.3 - 11.6 mcg/dL [facility] Comment: Reference Interval (mcg/dL): Females: ??First Trimester: 6.3-13.5 ??Second Trimester: 7.1-14.3 ??Third Trimester: 6.9-14.1 Blood 2021 10:5 4 AM EDT 2021 11:55 AM EDT Narrative Resulting Agency Comment Spec In Lab Gurjit Bass MD CHEMISTRY ORDERABLES Performing Organization Address City/[facility] Co de Phone Number [facility] [address] [place] [address] * TSH (2021 10:54 AM EDT) Thyroid Stimulating Hormone 2.40 0.27 - 4.20 mcIU/mL LAB[facility]ATORY Comment: Reference Interval (mcIU/mL): Females: ??First Trimester: 0.23-3.88 ??Second Trimester: 0.22-3.90 ??Third Trimester: 0.44-4.66 Blood 2021 10:5 4 AM EDT 2021 11:55 AM EDT Narrative Resulting Agency Comment Spec In Lab Gurjit Bass MD CHEMISTRY ORDERABLES Performing Organization Address [facility] Co de Phone Number [facility] [address] [place] [address] * Lyme IgG & IgM Antibody (2021 10:54 AM EDT) Lyme Antibody Neg Neg [facility] Blood 2021 10:5 4 AM EDT 05/28/2021 6:53 AM EDT Narrative Resulting Agency Comment Spec In Lab Gurjit Bass MD IMMUNOLOGY ORDERABLE S Performing Organization Address City/[facility]/ZIP Co de Phone Number [facility] [place] [address] * (ABNORMAL) Hemogram (2021 10:54 AM EDT) White Blood Cell 7.7 4.0 - 9.5 x10(3)/mc L [facility] Red Blood Cell 4.64 4.00 - 5.21 x10(6)/mc L [facility] Hemoglobin 14.4 11.7 - 15.5 g/dL [facility] Hematocrit 44.1 35.7 - 45.8 % LAB[facility] Mean Cell Volume 95.0(H) 82.6 - 94.4 fL [facility] Mean Cell Hemoglobin 31.0 27.1 - 32.0 pg LAB[facility] Mean Cell Hemoglobin Concentration 32.7 31.7 - 35.0 g/dL [facility] Platelet 208 145 - 357 x10(3)/mc L [facility] RDW Standard Deviation 47.3(H) 37.0 - 46.0 fL [facility] RDW coefficient of variation 13.3 11.5 - 14.1 % [facility] Mean Platelet Volume 9.6 7.6 - 12.9 fL [facility] Blood 2021 10:5 4 AM EDT 2021 11:55 AM EDT Narrative Resulting Agency Comment Spec In Lab Gurjit Bass MD HEMATOLOGY ORDERABLE S LABORATORY [address] [place] [address] documented in this encounter Visit Diagnoses Diagnosis Seizures Other convulsions Myelopathy Unspecified disease of spinal cord Bipolar affective disorder, remission status unspecified Type 2 diabetes mellitus without complication, without long-term current use of insulin documented in this encounter Care Teams Recruiting Internship Relationship Specialty Start Date End Date Hoang Castellanos, SUPERVISOR [employer] [address] [facility] [place] [address] PCP - General Family Medicine 03/12/20 documented as of this encounter
--- OUTSIDE RECORDS SUMMARY | 2024-08-01 18:33 | XMS_ITS | Encounter Summary ---
[place] [address] Care Team Providers Care Technology Manager Name Role Phone Hoang Castellanos APRN Primary Care Provider Encounter Details Date Type Department Care Team (Late st Contact Info) Description 04/14/2021 3:00 PM EDT TH Visit (TeleHealth) [place] [address] Altagracia Pereira MD [facility] [place] [address] Myelopathy; Weakness of both lower limbs; Bilateral [...] ??? Osteoporosis Overview Note: DEXA done at [facility] on 10/29/15: osteoporosis at the left [...] needed for Chest pain. Miscellaneous Medical Supply [facility] 1 walker on wheels with seat ibuprofen (Advil;Motrin) 800 mg Tablet Take 1 tablet by mouth every 8 hours as needed for Pain. sertraline (ZOLOFT) 100 mg Tablet Take 2 tablets by mouth 2 times daily. multivitamin (THERAGRAN) Tablet Take 1 tablet by mouth daily. lancets 30 gauge [facility] 1 each by [facility].(Non-Drug; Combo Route) route daily. ARIPiprazole (Abilify) 5 [...] as is her preference. ALTAGRACIA PEREIRA MD [facility] Qa Internship, Neuromuscular Medicine [facility] 04/13/21 11:50 PM Patient provided verbal consent [...] gait documented in this encounter Care Teams Technology Manager Relationship Specialty Start Date End Date Hoang Castellanos, AGRICULTURAL SALES REPRESENTATIVE [address] [place] [address] PCP - General Family Medicine 03/12/20 documented as of this encounter
--- OUTSIDE RECORDS SUMMARY | 2024-08-01 18:33 | XMS_ITS | Encounter Summary ---
Author Organization [facility] [place] [address] Care Team Providers Care Special Education Supervisor Name Role Phone Hoang Castellanos APRN Primary Care Provider Reason for Visit * Reason Comments Medication Refill Encounter Details Date Type Department Care Team (Late st Contact Info) Description 04/23/2021 Refill Primary Care at [facility] [address] [place] [phone] Hoang Castellanos APRN 10 [facility] [place] [address] Social History Tobacco Use Types Packs/Day Years [...] Notes * Telephone Encounter - [facility]/23/2021 2:31 PM EDT Advair Diskus [...] filedocumented in this encounter Care Teams Special Education Supervisor Relationship Specialty Start Date End Date Hoang Castellanos APRN [address] [place] [address] PCP - General Family Medicine 03/12/20 documented as of this encounter
--- OUTSIDE RECORDS SUMMARY | 2024-08-01 18:33 | XMS_ITS | Encounter Summary ---
[place] [address] Care Team Providers Care Middle School Teacher Name Role Phone Hoang Castellanos APRN Primary Care Provider Encounter Details Date Type Department Care Team (Late st Contact Info) Description 04/07/2021 [place] [address] Gurjit Bass MD [facility] [place] [address] Seizures; Myelopathy; Bipolar affective disorder, remission status [...] Cell 7.7 4.0 - 9.5 x10(3)/mc L [facility] Red Blood Cell 4.64 4.00 - [...] MD HEMATOLOGY ORDERABLE S Performing Organization Address City/[facility]/ZIP Co de Phone Number [place] [address] * Lyme IgG & IgM Antibody (2021 10:54 AM EDT) Lyme Antibody Neg Neg [facility] Blood 2021 10:5 4 AM EDT 05/28/2021 6:53 AM EDT Narrative Resulting Agency Comment Spec In Lab Gurjit Bass MD IMMUNOLOGY ORDERABLE S [facility] [place] [address] * TSH (2021 10:54 AM EDT) Thyroid Stimulating Hormone 2.40 0.27 - 4.20 mcIU/mL LABORATORY Comment: Reference Interval (mcIU/mL): Females: ??First Trimester: 0.23-3.88 ??Second Trimester: 0.22-3.90 ??Third Trimester: 0.44-4.66 Blood 2021 10:5 4 AM EDT 2021 11:55 AM EDT Narrative Resulting Agency Comment Spec In Lab Authorizing Provider Result Macy Bass MD CHEMISTRY ORDERABLES Performing Organization Address [facility] de Phone Number [facility] [address] [place] [address] * T4 Total (2021 10:54 AM EDT) T4 Total 8.2 5.3 - 11.6 mcg/dL LAB[facility]ORY Comment: Reference Interval (mcg/dL): Females: ??First Trimester: 6.3-13.5 ??Second Trimester: 7.1-14.3 ??Third Trimester: 6.9-14.1 Blood 2021 10:5 4 AM EDT 2021 11:55 AM EDT Narrative Resulting Agency Comment Spec In Lab Authorizing Provider Result Macy Bass MD CHEMISTRY ORDERABLES Performing Organization Address [facility] de Phone Number [facility] [address] [place] [address] * (ABNORMAL) Comprehensive metabolic panel (non-fasting) (2021 10:54 AM EDT) Glucose 90 65 - 199 mg/dL LAB[facility]ORY Comment:Diabetes: [...] Bass MD CHEMISTRY ORDERABLES LABORATORY [address] [place] [address] * Vitamin B12 (2021 10:54 AM EDT) Vitamin B12 1,017 232 - 1,245 pg/mL [facility] Blood 2021 10:5 4 AM EDT 2021 4:48 PM EDT Narrative Resulting Agency Comment Spec In Lab Gurjit Bass MD CHEMISTRY ORDERABLES Performing Organization Address [facility] Co de Phone Number [facility] [place] [address] * Lamotrigine Lvl (2021 10:54 AM EDT) Lamotrigine Lvl (NOVEMBER) 3.7 2.5 - 15.0 mcg/mL [facility] Comment: ADDITIONAL INFORMATION This test was developed and its performance characteristics determined by [facility] in a manner consistent with CLIA requirements. This test has not been cleared or approved by the U.S. Food and Drug Administration. Test Performed by: [facility] - [facility] [address] [place] [address] Water Treatment Plant Operator: Skinny Reyes M.D. Ph.D.; CLIA# [id number] Blood 2021 10:5 4 AM EDT 2021 4:54 PM EDT Narrative Resulting Agency Comment Spec In Lab Gurjit Bass MD LAB SEND OUT ORDERAB LES Performing Organization Address City/[facility] Co de Phone Number [facility] [address] [place] [address] documented in this encounter Visit Diagnoses Diagnosis Seizures Other convulsions Myelopathy Unspecified disease of spinal cord Bipolar affective disorder, remission status unspecified documented in this encounter Care Teams Middle School Teacher Relationship Specialty Start Date End Date Hoang Castellanos, SILK EXAMINER [address] [place] [address] PCP - General Family Medicine 03/12/20 documented as of this encounter
--- OUTSIDE RECORDS SUMMARY | 2024-08-01 18:33 | XMS_ITS | Encounter Summary ---
Author Organization [place] [address] Care Team Providers Care Raw Mill Operator Name Role Phone Hoang Castellanos APRN Primary Care Provider Reason for Visit * Reason Comments Medication Refill Encounter Details Date Type Department Care Team (Late st Contact Info) Description 06/05/2021 Refill Primary Care at [facility] 10 [place] [phone] Hoang Castellanos APRN 10 [facility] [place] [address] Social History Tobacco Use Types Packs/Day Years [...] on filedocumented in this encounter Care Teams Raw Mill Operator Relationship Specialty Start Date End Date Hoang Castellanos APRN [address] [place] [address] PCP - General Family Medicine 03/12/20 documented as of this encounter
--- OUTSIDE RECORDS SUMMARY | 2024-08-01 18:33 | XMS_ITS | Encounter Summary ---
[place] [address] Care Team Providers Care Electrical Engineering Director Name Role Phone Hoang Castellanos APRN Primary Care Provider Reason for Referral * Consultation (Routine) - Closed Specialty Diagnoses / Procedures Referred By Contac t Referred To Contact Primary Care Diagnoses Financial difficulties Hoang Castellanos APRN [address] [place] [address] Flavia Zamora Referral ID Status Reason Start Date Expiration Date V isits Requested Visits Authorized [id number] Closed Consult, Test & Treat 2021 2022 12 12 * Consultation (Routine) - Closed Specialty Diagnoses / Procedures Referred By Contac t Referred To Contact Endocrinology Diagnoses Osteoporosis, unspecified osteoporosis type, unspecified pathological fracture presence Hoang Castellanos APRN [address] [place] [address] [facility] [address] [place] [phone] Referral ID Status Reason Start Date Expiration Date V isits Requested Visits Authorized [id number] Closed Specialty Service Requested 2021 2022 12 12 Reason for Visit * Reason Comments Pre-op Exam Encounter Details Date Type Department Care Team (Latest Contact Info) Description 2021 9:30 AM EDT Office Visit Primary Care at [facility] 10 [facility] [place] [address] Hoang Castellanos, SAM [address] [place] [address] Preop examination; Cervicalgia; Preop cardiovascular exam; Health [...] this encounter Progress Notes * Hoang Castellanos, GROUP TESTER - 2021 9:30 AM EDT Subjective: Patient ID: Jeannie Rioc is a 61 y.o. female. ?? Reason [...] Directives - Y ?? Durable Power of Freight Rate Clerk for Health Care - [] No; [x] [...] performed by Ken Sanders MD at [facility] END[facility]COPY ??? PRO UPPER GI ENDOSCOPY, BIOPSY N/A 09/19/2018 UPPER GASTROINTESTINAL ENDOSCOPY,WITH BIOPSY SINGLE OR MULTIPLE (WRVU 2.49) performed by Tyron Mercado MD at [facility] ENDOSCOPY ??? TONSILLECTOMY ??? UPPER GI ENDOSCOPY, EXAM 12/04/2010 UPPER GI ENDOSCOPY performed by DEE WRIGHT at [facility] END[facility]COPY Allergies Allergen Reactions ??? Morphine Shortness [...] 30 tablet 1 ??? Miscellaneous Medical Supply [facility] [place] [...] lancets 30 gauge Misc 1 each by [facility] [place] [...] 05/26/21 94.3 kg (208 lb) Flu Vaccine 9325-1008 Age Considerations Vaccine Name Pediatric [] 6 [...] had any of the following: History of Guillian-[place] Syndrome, allergy to eggs, or allergicreaction to [...] Ear: There is impacted cerumen. Mouth/Throat: Lips: [place]. Mouth: Mucous membranes are moist. Dentition: Abnormal [...] risk Any Proceed to OR [] Intermediate >=4 Proceed to OR [] Intermediate <4 No cardiac risk factors Proceed to OR [] Intermediate >=4 1 or more cardiac Risk factors - Consider Beta Blockers initation for resting heart Rate < 65 (re-assess prior to surgery) - Consider Stress Testing if it would warp changer or would be done otherwise PULMONARY [...] like to do MRI thoracic spine at [facility] instead-will coordinate with [facility] Radiology SW support for lore enrique-she has a case maker helping her get into assisted living facility RX for Smoking Cessation A total of 45 minutes was spent on the day of the visit for completion of this encounter. (Established patient total visit time: 81058 - 20min, 88734 - 30 min, 15893 - 40 min; New patient total visit times: 41614 - 30 min, 09477 - 45 min, 09496 - 60 min) * Conor Velazquez - [...] Hemoglobin A1c 5.6 4.3 - 5.6 % [facility] Estimated Average Glucose 114 mg/dL [facility] Blood 2021 10:5 4 AM EDT 2021 11:55 AM EDT Narrative Resulting Agency Comment Spec In Lab Haong Castellanos GROUP TESTER CHEMISTRY ORDERABLES [facility] [address] [place] [address] documented in this encounter Visit Diagnoses Diagnosis [...] resources documented in this encounter Care Teams Electrical Engineering Director Relationship Specialty Start Date End Date Hoang Castellanos, GROUP TESTER [address] [place] [address] PCP - General Family Medicine 03/12/20 documented as of this encounter
--- OUTSIDE RECORDS SUMMARY | 2024-08-01 18:33 | XMS_ITS | Encounter Summary ---
Author Organization [facility] Address [facility] [place] [address] Care Team Providers Care Instructor Bus Trolley [employer] Taxi Name Role Phone Hoang Castellanos APRN Primary Care Provider Reason for Visit * Diagnostic Test (Routine) - Closed Specialty Diagnoses / Procedures Referred By Contdavide t Referred To Contact Radiology Diagnoses Age-related osteoporosis without current pathological fracture Procedures DXA Central Spine, Hip, and/or Whole Body (Generic) Hoang Castellanos APRN [address] [facility] [place] [address] [facility] Rad Xray [address] [place] [phone] Referral ID Status Reason Start Date Expiration Date V isits Requested Visits Authorized [id number] Closed Specialty Service Requested 03/23/2021 09/21/2022 1 1 Encounter Details Date Type Department Care Team (Latest Contact Info) Description 05/26/2021 9:30 AM EDT Ancillary Procedure Radiology D[facility] at [address] [phone] Hoang Castellanos APRN [address] [place] [address] Age-related osteoporosis without current pathological [...] BMD measurements and plots are available in [employer] under the imaging tab. Paper copies will be sent to providers without [employer] access. If you have received this report without the data sheet and do not have access to [employer], please contact [facility] at [phone]. Thank you for letting us participate in the care of this patient. ??If you are a health care provider and have any questions regarding this report, please contact the number below. ??For patients who have questions please contact the health laboratory animal caretaker that requested your imaging first. ? Electronically signed by: Hong Catherine MD, [facility] ([phone]), at 05/26/2021 1:03 PM Narrative 05/26/2021 1:03 [...] BMD measurements and plots are available in [employer] the imaging tab. Paper copies will be sent to providers without [employer] access.If you have received this report without the data sheet and do not haveaccess to E-, please contact [facility] at [phone]. Thank you for letting us participate in the care of this patient. If youare a health care provider and have any questions regarding this report,please contact the number below. For patients who have questions please contactthe health laboratory animal caretaker that requested your imaging first. Electronically signed by: Hong Catherine MD, [facility]([phone]), at 05/26/2021 1:03 PM Hoang Castellanos APRN IMG DEXA ORDERABLES documented in this encounter Visit Diagnoses Diagnosis Age-related osteoporosis without current pathological fracture Senile osteoporosis documented in this encounter Care Teams Instructor Bus Trolley [employer] Taxi Relationship Specialty Start Date End Date Hoang Castellanos, SAM [address] [place] [address] PCP - General Family Medicine 03/12/20 documented as of this encounter
--- OUTSIDE RECORDS SUMMARY | 2024-08-01 18:33 | XMS_ITS | Encounter Summary ---
[place] [address] Care Team Providers Care Engineering Professor Name Role Phone Hoang Castellanos APRN Primary Care Provider [phone] Reason for Visit * Diagnostic Test (Routine) - Closed Specialty Diagnoses / Procedures Referred By Contac t Referred To Contact Radiology Diagnoses Coronary artery disease involving [place] coronary artery of [place] heart without angina pectoris Procedures NM Pharmacologic Stress and Rest Myocardial Perfusion Dustin Haynes, [facility] [place] [address] [place] [address] Referral ID Status Reason Start Date Expiration Date V isits Requested Visits Authorized [id number] Closed Specialty Service Requested 02/16/2021 07/24/2021 1 1 Encounter Details Date Type Department Care Team (Late st Contact Info) Description 04/15/2021 10:32 AM EDT Hospital Encounter [place] [address] Benito Reed MD [facility] [place] [address] Discharge Disposition: Home Social History [...] 1 Dose by mouth 2 times daily. fluticasone propion-salmeteroL (ADVAIR) 500-50 mcg/dose Disk with [...] lie down for 30 min. 4 tablet 03/23/2021 06/22/2021 tiotropium bromide (Spiriva Respimat) 2.5 [...] Sustained Release 24 hrIndications:Coronary artery disease involving [place] coronary artery of [place] heart without angina pectoris TAKE ONE (1) [...] 09/28/2021 Ventolin HFA 90 mcg/actuation HFA Aerosol InhalerIndications:Refrigerating Oiler randell obstructive pulmonary disease, unspecified COPD type [...] 6 hours as needed for Indigestion. 11/26/2021 lisinopriL (Zestril) 40 mg TabletIndications:Benig n essential hypertension TAKE ONE (1) TABLET BY MOUTH EVERY DAY 28 tablet 11 04/14/2021 12/01/2021 Acidophilus Capsule 03/29/2021 05/27/20 Incruse Ellipta 62.5 mcg/actuation Disk with Device Inhale 1 puff into the lungs daily. 10/12/2020 2021 ARIPiprazole (Abilify) 5 mg Tablet Take 5 mg by mouth daily. Taking half 12/12/2019 12/11/2021 documented as of this encounter Plan of Treatment Not on file documented as of this encounter Procedures Procedure Name Priority Date/Time Associated Diagnosis Comments NM PHARMACOLOGIC STRESS AND REST MYOCARDIAL PERFUSION Routine 04/15/2021 11:37 AM EDT Coronary artery disease involving [place] coronary artery of [place] heart without angina pectoris documented in this [...] have questions please contact the health care connector that requested your imaging first. ? Narrative [...] who have questions please contactthe health care connector that requested your imaging first. Benito Reed [...] have questions please contact the health care connector that requested your imaging first. ? Narrative [...] who have questions please contactthe health care connector that requested your imaging first. Benito Reed MD IMG NM ORDERABL ES documented in this encounter Visit Diagnoses Not on filedocumented in this encounter Care Teams Engineering Professor Relationship Specialty Start Date End Date Hoang Castellanos APRN [address] [place] [address] PCP - General Family Medicine 03/12/20 documented as of this encounter
--- OUTSIDE RECORDS SUMMARY | 2024-08-01 18:33 | XMS_ITS | Encounter Summary ---
Author Organization [facility] [place] [address] Care Team Providers Care Nursery Worker Name Role Phone Hoang Castellanos APRN Primary Care Provider Encounter Details Date Type Department Care Team (Latest Contact Info) Description 06/09/2021 2:00 PM EST TH Visit (TeleHealth) [place] [address] Campos Puente MD [facility] [place] [address] Cervical spondylosis Social History Tobacco Use Types [...] myelopathy documented in this encounter Care Teams Nursery Worker Relationship Specialty Start Date End Date Hoang Castellanos, MEDICAL AUTHORIZATION SPECIALIST [address] [place] [address] PCP - General Family Medicine 03/12/20 documented as of this encounter
--- OUTSIDE RECORDS SUMMARY | 2024-08-01 18:33 | XMS_ITS | Encounter Summary ---
Author Organization [facility] [place] [address] Care Team Providers Care Sheet Sorter Name Role Phone Hoang Castellanos APRN Primary Care Provider Reason for Visit * Reason Comments Medication Refill Encounter Details Date Type Department Care Team (Late st Contact Info) Description 04/13/2021 Refill Primary Care at [facility] [address] [place] [phone] Hoang Castellanos APRN [address] [place] [address] Benign essential hypertension Social History Tobacco Use [...] benign documented in this encounter Care Teams Sheet Sorter Relationship Specialty Start Date End Date Hoang Castellanos, ALUMNAE SECRETARY [address] [place] [address] PCP - General Family Medicine 03/12/20 documented as of this encounter
--- OUTSIDE RECORDS SUMMARY | 2024-08-01 18:33 | XMS_ITS | Encounter Summary ---
[place] [address] Care Team Providers Care Orthopedic Rn Name Role Phone Hoang Castellanos APRN Primary Care Provider Encounter Details Date Type Department Care Team (Late st Contact Info) Description 05/26/2021 Tele[place] [address] Hiral Jose Social History Tobacco Use Types [...] on filedocumented in this encounter Care Teams Orthopedic Rn Relationship Specialty Start Date End Date Hoang Castellanos APRN [address] [place] [address] PCP - General Family Medicine 03/12/20 documented as of this encounter
--- OUTSIDE RECORDS SUMMARY | 2024-08-01 18:33 | XMS_ITS | Encounter Summary ---
[place] [address] Care Team Providers Care Barrel Coater Name Role Phone Hoang Castellanos APRN Primary Care Provider Encounter Details Date Type Department Care Team (Late st Contact Info) Description 06/08/2021 Telephone [place] [address] Sheree Escalante Social History Tobacco Use Types [...] Sheree Escalante - 06/08/2021 9:03 AM EST Sheree Escalante, [place] [address] [email or web address] HPI: Jeannie Rico is a 61 [...] BIOPSY performed by Ken Sanders MD at [facility] ENDOSCOPY ??? PRO UPPER GI ENDOSCOPY, BIOPSY N/A 09/19/2018 UPPER GASTROINTESTINAL ENDOSCOPY,WITH BIOPSY SINGLE OR MULTIPLE (WRVU 2.49) performed by Tyron Mercado MD at [facility] ENDOSCOPY ??? TONSILLECTOMY ??? UPPER GI ENDOSCOPY, EXAM 12/04/2010 UPPER GI ENDOSCOPY performed by DEE WRIGHT at [facility] ENDOSCOPY Current Outpatient Medications on File Prior [...] 30 tablet 1 ??? Miscellaneous Medical Supply [facility] 1 walker on wheels with seat 1 [...] in places where it is forbidden? (ex. quaker) No Yes 0 3. Which cigarette would [...] number of lozenges to be used in [facility] is 20. Most people who use [...] The patient has been provided with a [facility] Smoking Cessation packet. The patient has my [...] interested. Sheree Escalante 06/08/21 Tobacco Treatment Program [facility] documented in this encounter Plan of Treatment Not on file documented as of this encounter Visit Diagnoses Not on filedocumented in this encounter Care Teams Barrel Coater Relationship Specialty Start Date End Date Hoang Castellanos APRN [address] [place] [address] PCP - General Family Medicine 03/12/20 documented as of this encounter
--- OUTSIDE RECORDS SUMMARY | 2024-08-01 18:33 | XMS_ITS | Encounter Summary ---
[place] [address] Care Team Providers Care Leather Belt Loop Cutter Name Role Phone Hoang Castellanos APRN Primary Care Provider Encounter Details Date Type Department Care Team (Late st Contact Info) Description 06/15/2021 Telephone [place] [address] Sheree Escalante Social History Tobacco Use Types [...] on filedocumented in this encounter Care Teams Leather Belt Loop Cutter Relationship Specialty Start Date End Date Hoang Castellanos, LIVESTOCK AGENT [address] [place] [address] PCP - General Family Medicine 03/12/20 documented as of this encounter
--- OUTSIDE RECORDS SUMMARY | 2024-08-01 18:33 | XMS_ITS | Encounter Summary ---
Author Organization [facility] [place] [address] Care Team Providers Care Electric Mule Driver Name Role Phone Hoang Castellanos APRN Primary Care Provider [phone] Encounter Details Date Type Department Care Team (Late st Contact Info) Description 04/08/2021 [place] [address] Campos Puente MD [facility] [place] [address] Social History Tobacco Use Types Packs/Day Years [...] on filedocumented in this encounter Care Teams Electric Mule Driver Relationship Specialty Start Date End Date Hoang Castellanos, SAM [address] [place] [address] PCP - General Family Medicine 03/12/20 documented as of this encounter
--- OUTSIDE RECORDS SUMMARY | 2024-08-01 18:33 | XMS_ITS | Encounter Summary ---
Author Organization [place] [address] Care Team Providers Care Flexboard Operator Name Role Phone Hoang Castellanos APRN Primary Care Provider Encounter Details Date Type Department Care Team (Latest Contact Info) Description 04/30/2021 11:20 AM EDT Office Visit Cardiology at [address] [address] Chase Talbot MD Dizziness; Hyperlipidemia, unspecified hyperlipidemia type; Bilateral leg edema; Obstructive sleep apnea (adult) (pediatric); Smokes cigarettes; Coronary artery disease involving [place] coronary artery of [place] heart without angina pectoris Social History Tobacco [...] from the original note were not included. [facility] [place] [address] [address] CARDIOLOGY OUTPATIENT CLINIC VISIT [facility] Jeannie Rico 04/30/2021 Referring Providers: Hoang Castellanos [...] of report for additional findings. ?? A [employer] in October 2020 showed: Conclusion(s): 1. Predominant [...] BIOPSY performed by Ken Sanders MD at [facility] ENDOSCOPY ??? PRO UPPER GI ENDOSCOPY, BIOPSY N/A 09/19/2018 UPPER GASTROINTESTINAL ENDOSCOPY,WITH BIOPSY SINGLE OR MULTIPLE (WRVU 2.49) performed by Tyron Mercado MD at [facility] ENDOSCOPY ??? TONSILLECTOMY ??? UPPER GI ENDOSCOPY, EXAM 12/04/2010 UPPER GI ENDOSCOPY performed by DEE WRIGHT at [facility] ENDOSCOPY SOCIAL HISTORY: reports that she has [...] 30 tablet 1 ??? Miscellaneous Medical Supply [facility] 1 walker on [...] lancets 30 gauge Misc 1 each by [facility].(Non-Drug; Combo Route) route [...] (pediatric) Smokes cigarettes Coronary artery disease involving [place] coronary artery of [place] heart without angina pectoris 1. Preoperative risk [...] Sincerely, Dr. Chase Talbot MD [place] MY[facility] Skin Fitter Interventional Cardiology 04/30/2021 CC: Hoang Castellanos APRN documented in this encounter Plan of Treatment Not on file documented as of this encounter Visit Diagnoses Diagnosis Dizziness Dizziness and giddiness Hyperlipidemia, unspecified hyperlipidemia type Bilateral leg edema Edema Obstructive sleep apnea (adult) (pediatric) Smokes cigarettes Tobacco use disorder Coronary artery disease involving [place] coronary artery of [place] heart without angina pectoris documented in this encounter Care Teams Flexboard Operator Relationship Specialty Start Date End Date Hoang Castellanos APRN [address] [place] [address] PCP - General Family Medicine 03/12/20 documented as of this encounter
--- OUTSIDE RECORDS SUMMARY | 2024-08-01 18:33 | XMS_ITS | Encounter Summary ---
[place] [address] Care Team Providers Care Transmission Engineer Name Role Phone Hoang Castellanos APRN Primary Care Provider Encounter Details Date Type Department Care Team (Late st Contact Info) Description 06/22/2021 Telephone [place] [address] Sheree Escalante Social History Tobacco Use Types [...] on filedocumented in this encounter Care Teams Transmission Engineer Relationship Specialty Start Date End Date Hoang Castellanos APRN [address] [place] [address] PCP - General Family Medicine 03/12/20 documented as of this encounter
--- OUTSIDE RECORDS SUMMARY | 2024-08-01 18:33 | XMS_ITS | Encounter Summary ---
Author Organization [facility] [place] [address] Care Team Providers Care Inspector Golf Ball Name Role Phone Hoang Castellanos APRN Primary Care Provider Reason for Referral * Diagnostic Test (Routine) - Closed Specialty Diagnoses / Procedures Referred By Contac t Referred To Contact Radiology Diagnoses Myelopathy Procedures MRI Thoracic Spine wo Contrast (Generic) Gurjit Bass MD [facility] [place] [address] [facility] Rad Mri [address] [place] [address] Referral ID Status Reason Start Date Expiration Date V isits Requested Visits Authorized [id number] Closed Specialty Service Requested 03/26/2021 09/23/2022 1 1 Reason for Visit * Diagnostic Test (Routine) - Closed Specialty Diagnoses / Procedures Referred By Contac t Referred To Contact Radiology Diagnoses Myelopathy Procedures MRI Thoracic Spine wo Contrast (Generic) Gurjit Bass MD [facility] [place] [address] [facility] Rad Mri [address] [place] [address] Referral ID Status Reason Start Date Expiration Date V isipamela Requested Visits Authorized [id number] Closed Specialty Service Requested 03/26/2021 09/23/2022 1 1 Encounter Details Date Type Department Care Team (Latest Contact Info) Description 06/24/2021 1:30 PM EST - 06/24/2021 11:59 PM EST Hospital Encounter Radiology MRI at [facility] [address] [place] [address] Gurjit Bass MD [facility] [place] [place] [address] Myelopathy Discharge Disposition: Home Social History Tobacco [...] Sustained Release 24 hrIndications:Coronary artery disease involving [place] coronary artery of [place] heart without angina pectoris TAKE ONE (1) [...] 09/28/2021 Ventolin HFA 90 mcg/actuation HFA Aerosol InhalerIndications:Mountain Or Glacier Guide randell obstructive pulmonary disease, unspecified COPD type [...] have questions please contact the health career developer that requested your imaging first. ? Narrative [...] who have questions please contactthe health career developer that requested your imaging first. Gurjit Bass MD IMG MRI ORDERABLES documented in this encounter Visit Diagnoses Diagnosis Myelopathy Unspecified disease of spinal cord documented in this encounter Care Teams Inspector Golf Ball Relationship Specialty Start Date End Date Hoang Castellanos, SAM [address] [place] [address] PCP - General Family Medicine 03/12/20 documented as of this encounter
--- OUTSIDE RECORDS SUMMARY | 2024-08-01 18:33 | XMS_ITS | Encounter Summary ---
[place] [address] Care Team Providers Care Telemarketing Agent Name Role Phone Hoang Castellanos APRN Primary Care Provider [phone] Reason for Visit * Diagnostic Test (Routine) - Closed Specialty Diagnoses / Procedures Referred By Contac t Referred To Contact Radiology Diagnoses Coronary artery disease involving [place] coronary artery of [place] heart without angina pectoris Procedures NM Pharmacologic Stress and Rest Myocardial Perfusion Dustin Haynes, [facility] [place] [address] [place] [address] Referral ID Status Reason Start Date Expiration Date V isits Requested Visits Authorized [id number] Closed Specialty Service Requested 02/16/2021 07/24/2021 1 1 Encounter Details Date Type Department Care Team (Late st Contact Info) Description 04/15/2021 10:32 AM EDT Hospital En[place] [address] Benito Reed MD [facility] [place] [address] Discharge Disposition: Home Social History [...] Sustained Release 24 hrIndications:Coronary artery disease involving [place] coronary artery of [place] heart without angina pectoris TAKE ONE (1) [...] 09/28/2021 Ventolin HFA 90 mcg/actuation HFA Aerosol InhalerIndications:Driller Portable randell obstructive pulmonary disease, unspecified COPD type [...] for Indigestion. 11/26/2021 lisinopriL (Zestril) 40 mg TabletIndications:Candy n essential [...] 11:37 AM EDT Coronary artery disease involving [place] coronary artery of [place] heart without angina pectoris documented in this [...] Arm documented in this encounter Care Teams Telemarketing Agent Relationship Specialty Start Date End Date Hoang Castellanos, LIFTER DRIVER [address] [place] [address] PCP - General Family Medicine 03/12/20 documented as of this encounter
--- OUTSIDE RECORDS SUMMARY | 2024-08-01 18:33 | XMS_ITS | Encounter Summary ---
[place] [address] Care Team Providers Care Bulb Brander Name Role Phone Hoang Castellanos APRN Primary Care Provider Reason for Referral * Diagnostic Test (Routine) - Closed Specialty Diagnoses / Procedures Referred By Contac t Referred To Contact Radiology Diagnoses Coronary artery disease involving [place] coronary artery of [place] heart without angina pectoris Procedures NM Pharmacologic Stress CT Component Dustin Haynes [facility] [place] [address] [place] [address] Referral ID Status Reason Start Date Expiration Date V isits Requested Visits Authorized [id number] Closed Specialty Service Requested 02/16/2021 07/24/2021 1 1 Reason for Visit * Diagnostic Test (Routine) - Closed Specialty Diagnoses / Procedures Referred By Contdavide t Referred To Contact Radiology Diagnoses Coronary artery disease involving [place] coronary artery of [place] heart without angina pectoris Procedures NM Pharmacologic Stress CT Component Dustin Haynes [facility] [place] [address] [place] [address] Referral ID Status Reason Start Date Expiration Date V isits Requested Visits Authorized [id number] Closed Specialty Service Requested 02/16/2021 07/24/2021 1 1 Encounter Details Date Type Department Care Team (Late st Contact Info) Description 04/15/2021 10:33 AM EDT - 04/15/2021 11:59 PM EDT Hospital Encounter [place] [address] Benito Reed MD [facility] [address] Coronary artery disease involving [place] coronary artery of [place] heart without angina pectoris Discharge Disposition: Home [...] Sustained Release 24 hrIndications:Coronary artery disease involving [place] coronary artery of [place] heart without angina pectoris TAKE ONE (1) [...] 09/28/2021 Ventolin HFA 90 mcg/actuation HFA Aerosol InhalerIndications:Hazardous Substances Engineer randell obstructive pulmonary disease, unspecified COPD type INHALE 1 TO 2 PUFFS EVERY SIX HOURS NEEDED *CALL TO REFILL* 18 g 2 10/27/2020 12/01/2021 amLODIPine (Norvasc) 5 mg TabletIndications:Candy n essential hypertension Take 1 tablet by [...] 11:54 AM EDT Coronary artery disease involving [place] coronary artery of [place] heart without angina pectoris documented in this [...] who have questions please contact the health wound care specialist that requested your imaging first. ? Electronically signed by: Matthew Morrison MD, [facility] ([phone]), at 04/15/2021 3:42 PM Narrative 04/15/2021 3:42 [...] patients who have questions please contactthe health wound care specialist that requested your imaging first. Electronically signed by: Matthew Morrison MD, [facility]([phone]), at 04/15/2021 3:42 PM Benito Reed MD IMG NM ORDERABL ES documented in this encounter Visit Diagnoses Diagnosis Coronary artery disease involving [place] coronary artery of [place] heart without angina pectoris documented in this encounter Care Teams Bulb Brander Relationship Specialty Start Date End Date Hoang Castellanos, SAM [address] [place] [address] PCP - General Family Medicine 03/12/20 documented as of this encounter
--- OUTSIDE RECORDS SUMMARY | 2024-08-01 18:33 | XMS_ITS | Encounter Summary ---
Author Organization [place] [address] Care Team Providers Care Game Designer Name Role Phone Hoang Castellanos APRN Primary Care Provider [phone] Reason for Visit * Reason Onset Date Comments TeleHealth 06/04/2021 Encounter Details Date Type Department Care Team (Late st Contact Info) Description 06/04/2021 [place] [address] Campos Puente MD [facility] [place] [address] TeleHealth Social History Tobacco Use Types Packs/Day [...] on filedocumented in this encounter Care Teams Game Designer Relationship Specialty Start Date End Date Hoang Castellanos, SAM [address] [place] [address] PCP - General Family Medicine 03/12/20 documented as of this encounter
--- OUTSIDE RECORDS SUMMARY | 2024-08-01 18:33 | XMS_ITS | Encounter Summary ---
Author Organization [place] [address] Care Team Providers Care Security Architect Name Role Phone Hoang Castellanos APRN Primary Care Provider Reason for Visit * Reason Onset Date Comments Pre-op Exam 05/13/2021 Encounter Details Date Type Department Care Team (Late st Contact Info) Description 05/13/2021 Telephone Primary Care at [facility] [address] [facility] [place] [address] Hoang Castellanos APRN [address] [place] [address] Pre-op Exam Social History Tobacco Use Types [...] know. * Telephone Encounter - Hoang Castellanos, SERVICE COUNSELOR - 05/13/2021 1:04 PM EDT Thomas! I just took a call from Angela Espinoza who is the wrapper caser for Jeannie Bates called and has a few questions regarding her care. Please call her at [phone]. I received the above message from Amanda [...] attest that you are eligible, please call [phone] to schedule your appointment. You are required to bring your proof of vaccine card * Telephone Encounter - Gautam Davidson - 05/13/2021 9:57 AM EDT Jeannie needs a preop and would really like to follow up with you on it. She said surgery is either the first or second week of May but wasnt sure on the date. She is having it at [facility] with neurology. Please advise documented in this encounter Plan of Treatment Not on file documented as of this encounter Visit Diagnoses Not on filedocumented in this encounter Care Teams Security Architect Relationship Specialty Start Date End Date Hoang Castellanos APRN [address] [place] [address] PCP - General Family Medicine 03/12/20 documented as of this encounter
--- OUTSIDE RECORDS SUMMARY | 2024-08-01 18:33 | XMS_ITS | Encounter Summary ---
[place] [address] Care Team Providers Care Dynamic Etching Processor Name Role Phone Hoang Castellanos APRN Primary Care Provider Reason for Visit * Reason Onset Date Comments Other 06/22/2021 Encounter Details Date Type Department Care Team (Late st Contact Info) Description 06/22/2021 [place] [phone] Gurjit Bass MD Other Social History Tobacco Use Types Packs/Day [...] before surgery. * Telephone Encounter - Bárbara Moreau, RN - 06/22/2021 3:07 PM EST Called number provided and spoke with patient named Gianni. No one there by the name of Angela. * Telephone Encounter - Nisreen Miller - 06/22/2021 11:56 AM EST Call Center / Account Developer Message - General Issue Call Provider patient sees in Clinic: Gurjit Bass Caller and relationship (if other than patient-full name): Angela Company and position if other than patient or family: n Call back number: [phone] Ok to leave a message: y Reason [...] Nurse: y ??? Routine message sent to [place]: n Nurse/Account Developer contacted via: Message: y Call: n Pager: n documented in this encounter Plan of Treatment Not on file documented as of this encounter Visit Diagnoses Not on filedocumented in this encounter Care Teams Dynamic Etching Processor Relationship Specialty Start Date End Date Hoang Castellanos, SCHOOL LIBRARY MEDIA SPECIALIST [address] [place] [address] PCP - General Family Medicine 03/12/20 documented as of this encounter
--- OUTSIDE RECORDS SUMMARY | 2024-08-01 18:33 | XMS_ITS | Encounter Summary ---
Author Organization [facility] Address [facility] [place] [address] Care Team Providers Care Conversion Developer Name Role Phone Hoang Castellanos APRN Primary Care Provider Encounter Details Date Type Department Care Team (Late st Contact Info) Description 04/15/2021 10:29 AM EDT - 04/15/2021 10:31 AM EDT Hospital Encounter [place] [phone] Benito Reed MD [facility] [address] Coronary artery disease involving iqugmi[place] coronary artery of [place] heart without angina pectoris Discharge Disposition: Home [...] Sustained Release 24 hrIndications:Coronary artery disease involving [place]qu[place] coronary artery of [place] heart without angina pectoris TAKE ONE (1) [...] 09/28/2021 Ventolin HFA 90 mcg/actuation HFA Aerosol InhalerIndications:Optical Instrument Specialist randell obstructive pulmonary disease, unspecified COPD type [...] for Indigestion. 11/26/2021 lisinopriL (Zestril) 40 mg TabletIndications:Benkallie n essential [...] 12:06 PM EDT Coronary artery disease involving iqugmi[place] coronary artery of [place]qu[place] heart without angina pectoris documented in this encounter Results * Nuclear Pharmacologic Stress Cardiology (04/15/2021 12:06 PM EDT) Anatomical Region Laterality Modality Other Benito Reed MD CARDIAC SERVICE S ORDERABLES documented in this encounter Visit Diagnoses Diagnosis Coronary artery disease involving iqugmi[place] coronary artery of [place]qugmi[place] heart without angina pectoris documented in this encounter Care Teams Conversion Developer Relationship Specialty Start Date End Date Hoang Castellanos, UTILIZATION ENGINEER [address] [place] [address] PCP - General Family Medicine 03/12/20 documented as of this encounter
--- OUTSIDE RECORDS SUMMARY | 2024-08-01 18:33 | XMS_ITS | Encounter Summary ---
[place] [address] Care Team Providers Care Consulting Engineer Name Role Phone Hoang Castellanos APRN Primary Care Provider Encounter Details Date Type Department Care Team (Late st Contact Info) Description 06/23/2021 10:00 AM EST [place] [phone] Social History Tobacco Use Types Packs/Day Years [...] on filedocumented in this encounter Care Teams Consulting Engineer Relationship Specialty Start Date End Date Hoang Castellanos, SAM [address] [place] [address] PCP - General Family Medicine 03/12/20 documented as of this encounter
--- OUTSIDE RECORDS SUMMARY | 2024-08-01 18:33 | XMS_ITS | Encounter Summary ---
Author Organization [facility] Address [facility] [place] [address] Care Team Providers Care Cushion Gum Applicator Name Role Phone Hoang Castellanos APRN Primary Care Provider [phone] Encounter Details Date Type Department Care Team (Late st Contact Info) Description 04/08/2021 [place] [address] Campos Puente MD [facility] [place] [address] Social History Tobacco Use Types Packs/Day Years [...] - 06/02/2021 3:11 PM EST Angela from [facility] calling to provide fax number. * Telephone Encounter - Marli Hernández - 06/02/2021 2:23 PM EST Per PAB schedule TOV with Pt and siblings for Saturday 06/09 at 2pm LM for [facility] Education Faculty Member Angela to provide fax # to fax [...] April 07, 2021 ??5:17 PM To: P [facility] Mobile Product Manager ?? Message Needs cardiology W/U; PAT consult and schedule for surgery: C5/6 and 6/& ACDF documented in this encounter Plan of Treatment Not on file documented as of this encounter Visit Diagnoses Not on filedocumented in this encounter Care Teams Cushion Gum Applicator Relationship Specialty Start Date End Date Hoang Castellanos APRN [address] [place] [address] PCP - General Family Medicine 03/12/20 documented as of this encounter
--- OUTSIDE RECORDS SUMMARY | 2024-08-01 18:33 | XMS_ITS | Encounter Summary ---
[place] [address] Care Team Providers Care Freight Car Inspector Name Role Phone Hoang Castellanos APRN Primary Care Provider Encounter Details Date Type Department Care Team (Latest Contact Info) Description 05/26/2021 10:20 AM EDT Ancillary Procedure Radiology Mammo at the [facility] at [facility] [address] [place] [phone] Hoang Castellanos APRN [address] [place] [place] [address] Breast cancer screening by mammogram Social History [...] mammogram documented in this encounter Care Teams Freight Car Inspector Relationship Specialty Start Date End Date Hoang Castellanos APRN [address] [place] [address] PCP - General Family Medicine 03/12/20 documented as of this encounter
--- OUTSIDE RECORDS SUMMARY | 2024-08-01 18:33 | XMS_ITS | Encounter Summary ---
Author Organization [facility] Address [facility] [place] [address] Care Team Providers Care Interior Design Coordinator Name Role Phone Hoang Castellanos APRN Primary Care Provider Encounter Details Date Type Department Care Team (Late st Contact Info) Description 05/28/2021 Notes Only Primary Care at [facility] 10 [facility] [place] [phone] Flavia Zamora Social History Tobacco Use Types [...] qualifies to receive a $20 voucher to [facility] rag [facility] bone. documented in this encounter Plan of Treatment Not on file documented as of this encounter Visit Diagnoses Not on filedocumented in this encounter Care Teams Interior Design Coordinator Relationship Specialty Start Date End Date Hoang Castellanos APRN [address] [place] [address] PCP - General Family Medicine 03/12/20 documented as of this encounter
--- OUTSIDE RECORDS SUMMARY | 2024-08-01 18:33 | XMS_ITS | Encounter Summary ---
[place] [address] Care Team Providers Care Hooking Machine Operator Name Role Phone Hoang Castellanos APRN Primary Care Provider Reason for Referral * Diagnostic Test (Routine) - Closed Specialty Diagnoses / Procedures Referred By Contac t Referred To Contact Radiology Diagnoses Coronary artery disease involving tan[place] coronary artery of tanac[place] heart without angina pectoris Procedures NM Pharmacologic Stress and Rest Myocardial Perfusion Dustin Haynes [facility] [place] [address] [place] [address] Referral ID Status Reason Start Date Expiration Date V isits Requested Visits Authorized [id number] Closed Specialty Service Requested 02/16/2021 07/24/2021 1 1 Reason for Visit * Diagnostic Test (Routine) - Closed Specialty Diagnoses / Procedures Referred By Contac t Referred To Contact Radiology Diagnoses Coronary artery disease involving tan[place] coronary artery of tanacross heart without angina pectoris Procedures NM Pharmacologic Stress and Rest Myocardial Perfusion Dustin Haynes [facility] [place] [address] [place] [address] Referral ID Status Reason Start Date Expiration Date V isits Requested Visits Authorized [id number] Closed Specialty Service Requested 02/16/2021 07/24/2021 1 1 Encounter Details Date Type Department Care Team (Late st Contact Info) Description 04/15/2021 10:20 AM EDT - 04/15/2021 10:28 AM EDT Hospital En[place] [address] Benito Reed MD [facility] [place] [address] Coronary artery disease involving tanacross coronary artery of tanacross heart without angina pectoris Discharge Disposition: Home [...] Sustained Release 24 hrIndications:Coronary artery disease involving tanac[place] coronary artery of tanacross heart without angina pectoris TAKE ONE (1) [...] 09/28/2021 Ventolin HFA 90 mcg/actuation HFA Aerosol InhalerIndications:Repair Weaver randell obstructive pulmonary disease, unspecified COPD type [...] 11:37 AM EDT Coronary artery disease involving tanac[place] coronary artery of tanacross heart without angina pectoris documented in this [...] who have questions please contact the health managed care coordinator that requested your imaging first. ? Electronically signed by: Matthew Morrison MD, [facility] ([phone]), at 04/15/2021 3:42 PM Narrative 04/15/2021 3:42 [...] patients who have questions please contactthe health managed care coordinator that requested your imaging first. Electronically signed by: Matthew Morrison MD, [facility]([phone]), at 04/15/2021 3:42 PM Benito Reed MD IMG NM ORDERABL ES documented in this encounter Visit Diagnoses Diagnosis Coronary artery disease involving tanacross coronary artery of tanacross heart without angina pectoris documented in this [...] Arm documented in this encounter Care Teams Hooking Machine Operator Relationship Specialty Start Date End Date Hoang Castellanos, SAM [address] [place] [address] PCP - General Family Medicine 03/12/20 documented as of this encounter
--- OUTSIDE RECORDS SUMMARY | 2024-08-01 18:34 | XMS_ITS | Encounter Summary ---
[place] [address] Care Team Providers Care Forest Worker Name Role Phone Hoang Castellanos APRN Primary Care Provider Reason for Visit * Reason Onset Date Comments Questions 02/27/2021 note clarificati on Encounter Details Date Type Department Care Team (Late st Contact Info) Description 02/27/2021 Telephone Orthopaedics at [facility] 10 [facility] [place] [phone] Irasema Chairez RN Questions (note clarification) Social [...] 1960 No relevant phone numbers on file. [phone] (home) Problem/Question: Celi from [facility] left a message stating that she was [...] on filedocumented in this encounter Care Teams Forest Worker Relationship Specialty Start Date End Date Hoang Castellanos, CIGAR WRAPPER [address] [place] [address] PCP - General Family Medicine 03/12/20 documented as of this encounter
--- OUTSIDE RECORDS SUMMARY | 2024-08-01 18:34 | XMS_ITS | Encounter Summary ---
Author Organization [facility] [place] [address] Care Team Providers Care Senior Technical Architect Name Role Phone Hoang Castellanos APRN Primary Care Provider [phone] Reason for Visit * Reason Comments Medication Refill Encounter Details Date Type Department Care Team (Late st Contact Info) Description 10/27/2020 Refill Primary Care at [facility] 10 [place] [phone] Hoang Castellanos APRN 10 [facility] [place] [address] Chronic obstructive pulmonary disease, unspecified COPD type [...] Last Appt: 10/10/2020 Future Appt: 11/10/2020 Pharmacy: [facility] Last rx: 05/21/2019: 1 inhaler,, 11 refills [...] type documented in this encounter Care Teams Senior Technical Architect Relationship Specialty Start Date End Date Hoang Castellanos, FLAME CUTTER [address] [place] [address] PCP - General Family Medicine 03/12/20 documented as of this encounter
--- OUTSIDE RECORDS SUMMARY | 2024-08-01 18:34 | XMS_ITS | Encounter Summary ---
Author Organization [facility] [place] [address] Care Team Providers Care Oyster Bed Worker Name Role Phone Hoang Castellanos APRN Primary Care Provider Reason for Visit * Reason Comments Medication Refill Encounter Details Date Type Department Care Team (Late st Contact Info) Description 02/16/2021 Refill Primary Care at [facility] 10 [place] [phone] Hoang Castellanos APRN [address] [facility] [place] [place] [address] Coronary artery disease involving tlingit & haida coronary artery of tlingit & haida heart without angina pectoris Social History Tobacco [...] Visit Diagnoses Diagnosis Coronary artery disease involving tlingit & haida coronary artery of tlingit & haida heart without angina pectoris documented in this encounter Care Teams Oyster Bed Worker Relationship Specialty Start Date End Date Hoang Castellanos, SAM [address] [place] [place] [address] PCP - General Family Medicine 03/12/20 documented as of this encounter
--- OUTSIDE RECORDS SUMMARY | 2024-08-01 18:34 | XMS_ITS | Encounter Summary ---
Author Organization [facility] [place] [address] Care Team Providers Care Irrigation Service Technician Name Role Phone Hoang Castellanos APRN Primary Care Provider Reason for Visit * Reason Comments Medication Refill Encounter Details Date Type Department Care Team (Late st Contact Info) Description 11/24/2020 Refill Primary Care at [facility] 10 [facility] [place] [phone] Hoang Castellanos APRN 10 [facility] [place] [address] Social History Tobacco Use Types Packs/Day Years [...] FeroSul 325 (65 Fe) MG Tablet] 12 [id number] Sig: TAKE ONE (1) TABLET BY MOUTH THREE TIMES A WEEK Last Appt: 10/10/2020 Future Appt: 12/15/2020 Comments: last prescribed by Priya Charles APRN Pharmacy: [place] Last rx: 01/08/2020: 36 tablets/capsules, 3 refills Lab Results Component Value Date IRON 67 10/14/2020 TIBC 342 10/14/2020 FERRITIN 60 10/14/2020 documented in this encounter Plan of Treatment Not on file documented as of this encounter Visit Diagnoses Not on filedocumented in this encounter Care Teams Irrigation Service Technician Relationship Specialty Start Date End Date Hoang Castellanos APRN [address] [place] [address] PCP - General Family Medicine 03/12/20 documented as of this encounter
--- OUTSIDE RECORDS SUMMARY | 2024-08-01 18:34 | XMS_ITS | Encounter Summary ---
Author Organization [facility] [place] [address] Care Team Providers Care Health Safety Coordinator Name Role Phone Hoang Castellanos APRN Primary Care Provider Encounter Details Date Type Department Care Team (Late st Contact Info) Description 12/10/2020 Telephone Primary Care at [facility] 10 [facility] [place] [phone] Alva aCstellanos LPN Social History Tobacco Use Types Packs/Day [...] eye. I explained she should see an Hotel Concierge, I gave her a number for [facility].That is where she wanted to go. I told her to leave a message with their answering service. She asked about keeping the appointment today, I told her she needs to see the Hotel Concierge hopefully this morning. documented in this encounter Plan of Treatment Not on file documented as of this encounter Visit Diagnoses Not on filedocumented in this encounter Care Teams Health Safety Coordinator Relationship Specialty Start Date End Date Hoang Castellanos, CRISIS MANAGER [address] [place] [address] PCP - General Family Medicine 03/12/20 documented as of this encounter
--- OUTSIDE RECORDS SUMMARY | 2024-08-01 18:34 | XMS_ITS | Encounter Summary ---
Author Organization [facility] [place] [address] Care Team Providers Care Food Production Worker Name Role Phone Hoang Castellanos APRN Primary Care Provider Reason for Visit * Reason Comments Medication Refill Encounter Details Date Type Department Care Team (Late st Contact Info) Description 03/16/2021 Refill Primary Care at [facility] 10 [place] [phone] Hoang Castellanos APRN 10 [facility] [place] [address] B12 deficiency Social History Tobacco Use Types [...] deficiencies documented in this encounter Care Teams Food Production Worker Relationship Specialty Start Date End Date Hoang Castellanos APRN [address] [place] [address] PCP - General Family Medicine 03/12/20 documented as of this encounter
--- OUTSIDE RECORDS SUMMARY | 2024-08-01 18:34 | XMS_ITS | Encounter Summary ---
Author Organization [facility] [place] [address] Care Team Providers Care Damage Assessor Name Role Phone Hoang Castellanos APRN Primary Care Provider Encounter Details Date Type Department Care Team (Late st Contact Info) Description 12/10/2020 Telephone Primary Care at [facility] 10 [facility] [place] [phone] Hoang Castellanos APRN [address] [place] [address] Social History Tobacco Use Types Packs/Day Years [...] Notes * Telephone Encounter - Meena Galloway, [facility] - 12/10/2020 10:09 AM EDT I placed a follow up call this morning to speak with patient regarding her loss of vision in her right eye. I saw the note from visualization developer provider recommending patient go to the ER, [...] be seen emergently by Dr. Garcia at [facility] for an urgent exam. In speaking with patient this morning she was agreeable to this, and I let her know as soon as I spoke to elizabeth bond at [facility], I would let her know. I spoke to Marli at [facility] who was able to have patient seen and refer her to [facility] if needed. Patient was notified that Dr. Garcia office would be contacting her for appointment information. Demographics were faxed to Dr. Garcia office, per Marli's request. Hoang Castellanos APRN was notified of the above action plan and agreed with the plan. documented in this encounter Plan of Treatment Not on file documented as of this encounter Visit Diagnoses Not on filedocumented in this encounter Care Teams Damage Assessor Relationship Specialty Start Date End Date Hoang Castellanos APRN [address] [place] [address] PCP - General Family Medicine 03/12/20 documented as of this encounter
--- OUTSIDE RECORDS SUMMARY | 2024-08-01 18:34 | XMS_ITS | Encounter Summary ---
Author Organization [facility] Address [facility] [place] [address] Care Team Providers Care Manager Library Name Role Phone Hoang Castellanos APRN Primary Care Provider Encounter Details Date Type Department Care Team (Late st Contact Info) Description 04/07/2021 2:00 PM EDT Office [place] [address] Campos Puente MD [facility] [place] [address] Cervical spondylosis Social History Tobacco Use Types [...] MD - 04/07/2021 2:00 PM EDT Jeannie Rcio is a 60-year-old woman with a chief [...] her sister, Rae Mittal who resides in [place]. She arrives to this visit in a wheelchair. She is accompanied to this visit by her veterinary dentist. On examination this is a woman with [...] is intact to light touch and proprioception. Axiopo-ja-glkp is performed accurately. She can arise from [...] myelopathy documented in this encounter Care Teams Manager Library Relationship Specialty Start Date End Date Hoang Castellanos APRN [address] [place] [address] PCP - General Family Medicine 03/12/20 documented as of this encounter
--- OUTSIDE RECORDS SUMMARY | 2024-08-01 18:34 | XMS_ITS | Encounter Summary ---
[place] [address] Care Team Providers Care Metrology Technician Name Role Phone Hoang Castellanos APRN Primary Care Provider Reason for Visit * Reason Onset Date Comments Eye Problem 12/10/2020 Sudden vision lo ss RE Encounter Details Date Type Department Care Team (Late st Contact Info) Description 12/10/2020 Telephone [place] [phone] Ilana Whittington MD [facility] [place] [address] Eye Problem (Sudden vision loss RE) Social [...] encounter, patient prefers to be seen at [facility] which is appropriate for eye problem, however, given systemic issues patient is describing, PCP visit likely more time sensitive give possible symptoms of vascular changes/episodes. LVM for patient call back. documented in this encounter Plan of Treatment Not on file documented as of this encounter Visit Diagnoses Not on filedocumented in this encounter Care Teams Metrology Technician Relationship Specialty Start Date End Date Hoang Castellanos, VICE PRESIDENT [employer] [address] [place] [address] PCP - General Family Medicine 03/12/20 documented as of this encounter
--- OUTSIDE RECORDS SUMMARY | 2024-08-01 18:34 | XMS_ITS | Encounter Summary ---
Author Organization [facility] [place] [address] Care Team Providers Care Chemical Plant Operator Supervisor Name Role Phone Hoang Castellanos APRN Primary Care Provider Reason for Visit * Reason Comments Right Leg Pain * Consultation (Routine) - Closed Specialty Diagnoses / Procedures Referred By Vanita dimas Referred To Contact Orthopaedics Diagnoses Chronic pain of right ankle Hoang Castellanos APRN 10 [facility] [place] [address] [facility] Orthopaedics 10 [place] [address] Referral ID Status Reason Start Date Expiration Date V isits Requested Visits Authorized [id number] Closed Specialty Service Requested 12/17/2020 12/17/2021 12 12 Encounter Details Date Type Department Care Team (Late st Contact Info) Description 02/26/2021 1:00 PM EDT Office Visit Orthopaedics at [facility] 10 [place] [address] Alexis Menezes PA 10 [facility] ORTHOP[place]ED[place] [address] Chronic pain of right ankle [...] NAME: Jeannie Rico AGE: 60 y.o. MR#: [id number] DATE OF VISIT: 02/26/2021 DATE OF INJURY/ONSET: [...] BIOPSY performed by Ken Sanders MD at [facility] ENDOSCOPY ??? PRO UPPER GI ENDOSCOPY, BIOPSY N/A 09/19/2018 UPPER GASTROINTESTINAL ENDOSCOPY,WITH BIOPSY SINGLE OR MULTIPLE (WRVU 2.49) performed by Tyron Mercado MD at [facility] ENDOSCOPY ??? TONSILLECTOMY ??? UPPER GI ENDOSCOPY, EXAM 12/04/2010 UPPER GI ENDOSCOPY performed by DEE WRIGHT at [facility] ENDOSCOPY Family History Problem Relation Age [...] lancets 30 gauge Misc 1 each by [facility].(Non-Drug; Combo Route) route daily. (Patient not taking: [...] X-ray series were performed on 02/26/2021 at [facility] which showed healing distal fibula fracture with [...] with this approach. Please refer to the [employer] website at [email or web address], [...] ankle documented in this encounter Care Teams Chemical Plant Operator Supervisor Relationship Specialty Start Date End Date Hoang Castellanos, SAM [address] [place] [address] PCP - General Family Medicine 03/12/20 documented as of this encounter
--- OUTSIDE RECORDS SUMMARY | 2024-08-01 18:34 | XMS_ITS | Encounter Summary ---
Author Organization [facility] Address [facility] [place] [address] Care Team Providers Care Barrel Burner Name Role Phone Mark Holguin APRN Primary Care Provider Reason for Referral * Consultation (Routine) - Closed Specialty Diagnoses / Procedures Referred By Vanita dimas Referred To Contact Neurology Diagnoses Intracranial hypertension Mark Holguin APRN [address] [facility] [address] Gurjit Bass MD [facility] [place] [address] Referral ID Status Reason Start Date Expiration Date V isits Requested Visits Authorized [id number] Closed Specialty Service Requested 02/09/2021 02/09/2022 12 12 Reason for Visit * Reason Onset Date Comments Referral 02/09/2021 Encounter Details Date Type Department Care Team (Late Contact Info) Description 02/09/2021 Telephone Primary Care at [facility] 10 [place] [address] Minerva Claderón RN Referral Social History Tobacco Use Types [...] meantime, she had reached out to her [facility] outsole caser Alondrashania left a VM on the PCP nurse's line to follow up on the referral request. Patient states she is trying to work on not becoming frustrated so easily. Jeannie asked me to reach out to Angela to inform her of the update that the referral was placed. Left VM for Angela at [facility], advised the requested referral has been placed [...] hypertension documented in this encounter Care Teams Barrel Burner Relationship Specialty Start Date End Date Mark Holguin, COMMERCIAL P[employer] [address] [place] [address] PCP - General Family Medicine 03/12/20 documented as of this encounter
--- OUTSIDE RECORDS SUMMARY | 2024-08-01 18:34 | XMS_ITS | Encounter Summary ---
Author Organization [facility] [place] [address] Care Team Providers Care Gang Vibrator Operator Name Role Phone Hoang Castellanos APRN Primary Care Provider Reason for Visit * Reason Comments Medication Refill Encounter Details Date Type Department Care Team (Late st Contact Info) Description 10/27/2020 Refill Primary Care at [facility] 10 [facility] [place] [phone] Hoang Castellanos APRN [address] [facility] [place] [address] Social History Tobacco Use Types Packs/Day Years [...] on filedocumented in this encounter Care Teams Gang Vibrator Operator Relationship Specialty Start Date End Date Hoang Castellanos APRN [address] [place] [address] PCP - General Family Medicine 03/12/20 documented as of this encounter
--- OUTSIDE RECORDS SUMMARY | 2024-08-01 18:34 | XMS_ITS | Encounter Summary ---
Author Organization [facility] [place] [address] Care Team Providers Care Bulkhead Carpenter Name Role Phone Hoang Castellanos APRN Primary Care Provider Reason for Referral * Consultation (Routine) - Closed Specialty Diagnoses / Procedures Referred By Contac t Referred To Contact Orthopaedics Diagnoses Chronic pain of right ankle Hoang Castellanos APRN [address] [place] [address] [facility] Orthopaedics [address] [place] [address] Referral ID Status Reason Start Date Expiration Date V isits Requested Visits Authorized [id number] Closed Specialty Service Requested 12/17/2020 12/17/2021 12 12 * Consultation (Routine) - Closed Specialty Diagnoses / Procedures Referred By Contac t Referred To Contact Neurology Diagnoses Right leg weakness Dizziness Hoang Castellanos APRN [address] [place] [address] [facility] Neurology [address] [place] [id number] Referral ID Status Reason Start Date Expiration Date V isits Requested Visits Authorized [id number] Closed Specialty Service Requested 12/17/2020 12/17/2021 12 12 Reason for Visit * Reason Comments Hypertension Diabetes Encounter Details Date Type Department Care Team (Late st Contact Info) Description 12/15/2020 1:30 PM EDT Office Visit Primary Care at [facility] 10 [facility] [place] [address] Hoang Castellanos, SAM [address] [place] [address] Benign essential hypertension; Cataract of right eye, [...] a 60 y.o. female [facility] the [facility] Primary Care Clinic Patient Due For: 1. [...] diagnsoed with dense cataract Awaiting appt at [facility] Ophthalmology Right wrist pain Hx of fracture [...] Edema documented in this encounter Care Teams Bulkhead Carpenter Relationship Specialty Start Date End Date Hoang Castellanos APRN [address] [place] [address] PCP - General Family Medicine 03/12/20 documented as of this encounter
--- OUTSIDE RECORDS SUMMARY | 2024-08-01 18:34 | XMS_ITS | Encounter Summary ---
Author Organization [facility] [place] [address] Care Team Providers Care Doorkeeper Name Role Phone Hoang Castellanos APRN Primary Care Provider Encounter Details Date Type Department Care Team (Late st Contact Info) Description 10/14/2020 Orders Only Primary Care at [facility] 10 [place] [phone] Hoang Castellanos APRN 10 [facility] [address] Acute cystitis with hematuria Social History Tobacco [...] cystitis documented in this encounter Care Teams Doorkeeper Relationship Specialty Start Date End Date Hoang Castellanos APRN [address] [facility] [place] [address] PCP - General Family Medicine 03/12/20 documented as of this encounter
--- OUTSIDE RECORDS SUMMARY | 2024-08-01 18:34 | XMS_ITS | Encounter Summary ---
[place] [address] Care Team Providers Care Housekeeping Supervisor Name Role Phone Hoang Castellanos APRN Primary Care Provider Reason for Visit * Reason Onset Date Comments Results 10/14/2020 Encounter Details Date Type Department Care Team (Late st Contact Info) Description 10/14/2020 Telephone Primary Care at [facility] 10 [facility] [place] [phone] Shannon Chung, RN Results Social History Tobacco [...] also inform patient that she can call [facility] to start the process for EMS transportation [...] Yesterday Message Contents Hoang Castellanos APRN P [facility] Primary Care Nurse Please inform patient [...] on filedocumented in this encounter Care Teams Housekeeping Supervisor Relationship Specialty Start Date End Date Hoang Castellanos APRN [address] [place] [address] PCP - General Family Medicine 03/12/20 documented as of this encounter
--- OUTSIDE RECORDS SUMMARY | 2024-08-01 18:34 | XMS_ITS | Encounter Summary ---
Author Organization [facility] Address [facility] [place] [address] Care Team Providers Care Tin Flopper Name Role Phone Hoang Castellanos APRN Primary Care Provider Encounter Details Date Type Department Care Team (Latest Contact Info) Description 10/14/2020 10:45 AM EDT - 10/14/2020 11:59 PM EDT Hospital Encounter Laboratory at [facility] [place] [address] Foul smelling urine; Vitamin B12 deficiency; Vitamin [...] 1 Dose by mouth 2 times daily. 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 11/26/2021 Incruse Ellipta 62.5 mcg/actuation Disk with Device Inhale 1 puff into the lungs daily. 10/12/2020 2021 nitrofurantoin (Macrobid) 100 mg CapsuleIndications:Acu te cystitis with hematuria Take 1 capsule by mouth 2 times daily for 5 days. 10 capsule 10/14/2020 10/19/2020 fluticasone propion-salmeteroL (Advair Diskus) 500-50 mcg/dose Disk [...] mouth daily. 90 tablet 3 03/21/2020 02/17/2021 Acidophilus Capsule TAKE TWO (2) CAPSULES BY MOUTH TWICE A DAY 112 capsule 11 01/21/2020 12/23/2020 ferrous sulfate 325 mg (65 mg iron) Tablet Take 1 tablet by mouth three times a week. 36 tablet 3 01/08/2020 11/26/2020 simvastatin (Zocor) 40 mg TabletIndications:CAD (coronary artery disease) Take 1 tablet by mouth nightly. 90 tablet 3 12/25/2019 10/16/2020 ARIPiprazole (Abilify) 5 mg Tablet Take 5 mg by mouth daily. Taking half 12/12/2019 12/11/2021 lactobacillus rhamnosus, GG, (CULTURELLE) 10 billion cell Capsule Take 2 capsules by mouth 2 times daily. 02/26/2021 sertraline (Zoloft) 50 mg Tablet Take 1 [...] (ABNORMAL) Differential, Automated (10/14/2020 10:20 AM EDT) Neutrophil % 69.9 % [facility] Neutrophil Absolute 6.91(H) 1.70 - 6.10 x10(3)/mc L [facility] Lymph % 21.2 % [facility] Lymphocytes Abs 2.1 0.9 - 3.2 x10(3)/mc L [facility] Monocyte % 7.9 % [facility] Monocyte Abs 0.8 0.3 - 0.9 x10(3)/mc L [facility] Eos % 0.5 % [facility] Eosinophils Abs 0.0 0.0 - 0.4 x10(3)/mc L [facility] Basophil % 0.4 % [facility] Baso Absolute 0.0 0.0 - 0.1 x10(3)/mc L [facility] Immature Gran % 0.10 % [facility] Comment: Immature granulocytes(IG's)percentage and absolute count will include metamyelocytes, myelocytes, and promyelocytes. Blood smears from CBCs yielding IG's will be scanned manually for concordance. If this scan disagrees with the automated IG or if promyelocytes are noted, a manual differential will be performed. Immature Gran Absolute 0.01 0.00 - 0.04 x10(3)/mc L [facility] Blood specimen (specimen) 10/14/2020 10:20 AM EDT 10/14/2020 11:15 AM EDT Narrative Resulting Agency Comment Spec In Lab Britnikeri Trinidad Emanuel CORPORATE STRATEGIST HEMATOLOGY ORDERABLE S Performing Organization Address City/[facility]/ZIP Co de Phone Number LABORATORY 10 [place] [address] * (ABNORMAL) Hemogram (10/14/2020 10:20 AM EDT) White Blood Cell 9.9(H) 4.0 - 9.5 x10(3)/mc L [facility] Red Blood Cell 4.84 4.00 - 5.21 x10(6)/mc L [facility] Hemoglobin 14.6 11.7 - 15.5 gm/dL [facility] Hematocrit 45.7 35.7 - 45.8 % [facility] Mean Cell Volume 94.4 82.6 - 94.4 fL [facility] Mean Cell Hemoglobin 30.2 27.1 - 32.0 pg [facility] Mean Cell Hemoglobin Concentration 31.9 31.7 - 35.0 gm/dL [facility] Platelet 241 145 - 357 x10(3)/mc L [facility] RDW Standard Deviation 48.4(H) 37.0 - 46.0 fL [facility] RDW coefficient of variation 13.7 11.5 - 14.1 % [facility] Mean Platelet Volume 9.8 7.6 - 12.9 fL [facility] Blood specimen (specimen) 10/14/2020 10:20 AM EDT 10/14/2020 11:15 AM EDT Narrative Resulting Agency Comment Spec In Lab Hoang Castellanos APRN HEMATOLOGY ORDERABLE S Performing Organization Address City/[facility]/ZIP Co de Phone Number LABORATORY [address] [place] [address] * (ABNORMAL) CMP w/fasting Glucose (10/14/2020 10:20 AM EDT) [facility] Glucose Fasting 88 65 - 99 mg/dL [facility] Comment: ?Fasting* Glucose Interpretive [...] of Diabetes Mellitus, Position Statement from the [place] [employer]. ??Diabetes Care, Volume 33, Supplement 1, Jul 2009 Blood Urea Nitrogen 21(H) 8 - 18 mg/dL [facility] Creatinine 0.72 0.70 - 1.20 mg/dL [facility] Sodium 138 135 - 145 mmol/L [facility] Potassium 4.1 3.5 - 5.0 mmol/L [facility] Comment: Please note: ??Patients with WBC >100,000 may have falsely elevated Potassium levels. ??For accurate Potassium quantification in these patients send serum separator tube (gold top) for subsequent determinations. ??Contact the Clinical Chemistry Laboratory if there are any questions. Chloride 99 98 - 107 mmol/L [facility] Carbon Dioxide 28 22 - 31 mmol/L [facility] Anion Gap 11 5 - 15 mmol/L [facility] Calcium 9.5 8.5 - 10.5 mg/dL [facility] Protein, Total 6.9 6.1 - 8.0 gm/dL [facility] Albumin 4.1 3.2 - 5.2 gm/dL [facility] Aspartate Aminotransferase 11 0 - 30 unit/L [facility] Alanine Aminotransferase 6 0 - 30 unit/L [facility] Alkaline Phosphatase 108(H) 35 - 105 unit/L [facility] Bilirubin, Total 0.3 0.2 - 1.3 mg/dL [facility] Est Glomerular Filtration Rate 91 >=60 mL/min/1. 73 m?? [facility] Comment: [...] Castellanos APRN CHEMISTRY ORDERABLES Performing Organization Address [facility] Co de Phone Number [facility] 10 [place] [address] * (ABNORMAL) Hemoglobin A1c (10/14/2020 10:20 AM EDT) Hemoglobin A1c 5.7(H) 4.3 - 5.6 % [facility] Estimated Average Glucose 117 mg/dL [facility] Blood specimen (specimen) 10/14/2020 10:20 AM EDT 10/14/2020 11:15 AM EDT Narrative Resulting Agency Comment Spec In Lab Hoang Castellanos APRN CHEMISTRY ORDERABLES Performing Organization Address City/[facility] Co de Phone Number [facility] 10 [place] [address] * TSH (10/14/2020 10:20 AM EDT) Thyroid Stimulating Hormone 1.96 0.27 - 4.20 mcIU/mL [facility] Blood specimen (specimen) 10/14/2020 10:20 AM EDT 10/14/2020 11:15 AM EDT Narrative Resulting Agency Comment Spec In Lab Hoang Castellanos APRN CHEMISTRY ORDERABLES Performing Organization Address City/[facility]/ZIP Co de Phone Number [facility] 10 [facility] [place] [address] * Ferritin (10/14/2020 10:20 AM EDT) [facility] Ferritin 60 30 - 400 ng/mL [facility] Comment: Pediatric reference ranges not verified at [facility], interpret with caution. Reference ranges for females greater than 50 years of age approach values for men, i.e., 30-400 ng/mL. Blood specimen (specimen) 10/14/2020 10:20 AM EDT 10/14/2020 11:15 AM EDT Narrative Resulting Agency Comment Spec In Lab Hoang Castellanos APRN CHEMISTRY ORDERABLES Performing Organization Address [facility]/ZIP Co de Phone Number [facility] 10 [facility] [place] [address] * Iron and TIBC (10/14/2020 10:20 AM EDT) [facility] Iron 67 30 - 150 mcg/dL [facility] TIBC 342 250 - 450 mcg/dL [facility] Iron Saturation 20 20 - 50 % [facility] Blood specimen (specimen) 10/14/2020 10:20 AM EDT 10/14/2020 1:58 PM EDT Narrative Resulting Agency Comment Spec In Lab Hoang Castellanos APRN CHEMISTRY ORDERABLES Performing Organization Address [facility]/ZIP Co de Phone Number [facility] 10 [place] [address] * Vitamin D, 25-Hydroxy (10/14/2020 10:20 AM EDT) [facility] Vitamin D Total 25 OH 54 21 - 100 ng/mL [facility] Vit D Interp Sufficient [facility] Blood specimen (specimen) 10/14/2020 10:20 AM EDT 10/14/2020 4:28 PM EDT Narrative Resulting Agency Comment Spec In Lab Hoang Trinidad Emanuel CORPORATE STRATEGIST CHEMISTRY ORDERABLES Performing Organization Address City/[facility]/ZIP Co de Phone Number [facility] [place] [address] * Vitamin B12 (10/14/2020 10:20 AM EDT) Vitamin B12 1,085 232 - 1,245 pg/mL [facility] Blood specimen (specimen) 10/14/2020 10:20 AM EDT 10/14/2020 4:28 PM EDT Narrative Resulting Agency Comment Spec In Lab Hoang Trinidad Emanuel WOLFN CHEMISTRY ORDERABLES Performing Organization Address City/[facility]/ZIP Co de Phone Number [facility] [place] [address] * (ABNORMAL) _Urinalysis with microscopic (10/14/2020 10:20 AM EDT) Glucose, Urine Dipstick Negative Negative [facility] Protein, Urine Dipstick Negative Negative [facility] Bilirubin, Urine Dipstick Negative Negative [facility] Comment: Clinical correlation required for positive Urine Bilirubin results as false positive may occur with some drugs and drug related products. If a false positive is suspected a serum total bilirubin should be considered if clinically indicated. Urobilinogen, Urine Dipstick Normal Normal mg/dL [facility] pH, Urn (dipstick) 6.5 5.0 - 8.0 [facility] Blood, Urine Dipstick Moderate(A) Negative [facility] Ketone, Urine Dipstick Negative Negative [facility] Nitrite, Urine Dipstick Negative Negative [facility] Leukocytes, Urine Dipstick Small(A) Negative [facility] Appearance, Urine Dipstick Slightly Cloudy [facility] Specific [place] Urine Automated 1.020 1.006 - 1.030 LABORATORY Color, Urine Dipstick Yellow Yellow [facility] RBC, Urine 20(H) 0 - 4 /HPF [facility] WBC, Urine 10(H) 0 - 5 /HPF [facility] Bacteria, Urine Occasional( A) None /HPF [facility] Budding Yeast, Urine Occasional( A) None /HPF [facility] Transitional Epithelial Cells, Urine 2(H) <=1 /HPF [facility] Calcium Oxalate Crystal, Urine Rare(A) None /HPF [facility] Urine specimen (specimen) 10/14/2020 10:20 AM EDT 10/14/2020 11:15 AM EDT Narrative Resulting Agency Comment Spec In Lab Hoang Castellanos APRN URINE ORDERABLES Performing Organization Address [facility] Co de Phone Number LABORATORY [address] [place] [address] * (ABNORMAL) Urine culture Clean Catch Urine (10/14/2020 10:20 AM EDT) Urine Culture 50,000-99,000 cfu/ml mixed mucosal jan Note: Culture shows multiple bacterial species suggesting mucosal contamination. If symptoms continue to indicate urinary tract infection, submit a new specimen. (A) [facility] Urine specimen obtained by clean catch procedure (specimen) 10/14/2020 10:20 AM EDT 10/14/2020 4:00 PM EDT Narrative Resulting Agency Comment Spec In Lab Hoang Castellanos APRN MICROBIOLOGY - GENER AL ORDERABLES Performing Organization Address City/[facility]/ZIP Co de Phone Number [facility] [place] [address] documented in this encounter Visit Diagnoses Diagnosis Foul smelling urine Other nonspecific finding on examination of urine Vitamin B12 deficiency Other B-complex deficiencies Vitamin D deficiency Unspecified vitamin D deficiency Iron deficiency anemia, unspecified iron deficiency anemia type Hypothyroidism, acquired Unspecified hypothyroidism Type 2 diabetes mellitus without complication, without long-term current use of insulin documented in this encounter Care Teams Tin Flopper Relationship Specialty Start Date End Date Hoang Castellanos, CORPORATE STRATEGIST [address] [place] [address] PCP - General Family Medicine 03/12/20 documented as of this encounter
--- OUTSIDE RECORDS SUMMARY | 2024-08-01 18:34 | XMS_ITS | Encounter Summary ---
[place] [address] Care Team Providers Care Primary Care Md Name Role Phone Hoang Castellanos APRN Primary Care Provider Encounter Details Date Type Department Care Team (Late st Contact Info) Description 12/09/2020 Telephone Primary Care at [facility] 10 [place] [phone] Ananth Wilson MD 10 [facility] [place] [address] Social History Tobacco Use Types Packs/Day Years [...] Time: 7:22 PM Caller: self Phone number: [phone] Primary care provider: Hoang Castellanos APRN Reason [...] on filedocumented in this encounter Care Teams Primary Care Md Relationship Specialty Start Date End Date Hoang Castellanos APRN [address] [place] [address] PCP - General Family Medicine 03/12/20 documented as of this encounter
--- OUTSIDE RECORDS SUMMARY | 2024-08-01 18:34 | XMS_ITS | Encounter Summary ---
[place] [address] Care Team Providers Care Thiokol Operator Name Role Phone Hoang Castellanos APRN Primary Care Provider Reason for Referral * Diagnostic Test (Routine) - Closed Specialty Diagnoses / Procedures Referred By Vanita dimas Referred To Contact Radiology Diagnoses Weakness of both lower limbs Bilateral hand numbness Procedures MRI Cervical Spine wo Contrast (Generic) Altagracia Baltazar MD [facility] [place] [address] [place] [address] Referral ID Status Reason Start Date Expiration Date V isits Requested Visits Authorized [id number] Closed Specialty Service Requested 02/04/2021 08/07/2022 1 1 Encounter Details Date Type Department Care Team (Late st Contact Info) Description 02/04/2021 [place] [address] Altagracia Baltazar MD [facility] [place] [address] Weakness of both lower limbs; [...] who have questions please contact the health lawn care specialist that requested your imaging first. ? Electronically signed by: Xander Whittington MD, [facility] ([phone]), at 03/10/2021 10:54 AM Narrative 03/10/2021 10:54 [...] patients who have questions please contactthe health lawn care specialist that requested your imaging first. Electronically signed by: Xander Whittington MD, [facility]([phone]), at 03/10/2021 10:54 AM Altagracia Baltazar MD [facility] MRI ORDERABLES * (ABNORMAL) Basic Metabolic Panel (non-fasting) (02/26/2021 12:14 PM EDT) [facility] Glucose 107 65 - 199 mg/dL LABORATORY Comment:Diabetes: >=200 mg/d L plus symptoms Blood Urea Nitrogen 18 8 - 18 mg/dL [facility] Creatinine [...] 101 98 - 107 mmol/L [facility] Carbon Dioxide 25 22 - 31 mmol/L [facility] Anion Gap 13 5 - 15 mmol/L [facility] Calcium 9.7 8.5 - 10.5 mg/dL [facility] Est Glomerular Filtration Rate 96 >=60 mL/min/1. 73 m?? [facility] [...] Lab Altagracia Baltazar MD CHEMISTRY ORDERABLE S [facility] [address] [place] [address] * Acetylcholine Receptor Ab Binding (02/26/2021 12:14 PM EDT) Achr Binding Ab (NOVEMBER) 0.00 <=0.02 nmol/L [facility] Comment: ADDITIONAL INFORMATION This test was developed and its performance characteristics determined by [facility] in a manner consistent with CLIA requirements. This test has not been cleared or approved by the U.S. Food and Drug Administration. Test Performed by: [facility] - [address] [address] Equipment Operat0R: Skinny Reyes M.D. Ph.D.; CLIA# [id number] Blood 02/26/2021 12:1 4 PM EDT 02/26/2021 5:14 PM EDT Narrative Resulting Agency Comment Spec In Lab Altagracia Baltazar MD LAB SEND OUT ORDERA BLES Performing Organization Address [facility] Co de Phone Number [facility] [address] [place] [address] * CK (02/26/2021 12:14 PM EDT) Creatine Kinase 79 0 - 160 unit/L [facility] Blood 02/26/2021 12:1 4 PM EDT 02/26/2021 12:26 PM EDT Narrative Resulting Agency Comment Spec In Lab Altagracia Baltazar MD CHEMISTRY ORDERABLE S Performing Organization Address [facility] de Phone Number [facility] [address] [place] [address] documented in this encounter Visit Diagnoses Diagnosis Weakness of both lower limbs Other musculoskeletal symptoms referable to limbs Bilateral hand numbness Disturbance of skin sensation Gait disturbance Abnormality of gait Diplopia Weakness of both lower limbs Other musculoskeletal symptoms referable to limbs Bilateral hand numbness Disturbance of skin sensation documented in this encounter Care Teams Thiokol Operator Relationship Specialty Start Date End Date Hoang Castellanos, ASSISTANT QUALITY MANAGER [address] [place] [address] PCP - General Family Medicine 03/12/20 documented as of this encounter
--- OUTSIDE RECORDS SUMMARY | 2024-08-01 18:34 | XMS_ITS | Encounter Summary ---
Author Organization [facility] [place] [address] Care Team Providers Care Public Health Social Worker Name Role Phone Hoang Castellanos APRN Primary Care Provider Reason for Referral * Diagnostic Test (Routine) - Closed Specialty Diagnoses / Procedures Referred By Contac t Referred To Contact Radiology Diagnoses Myelopathy Procedures MRI Thoracic Spine wo Contrast (Generic) Gurjit Bass MD [facility] [place] [address] [facility] Rad Mri [address] [place] [address] Referral ID Status Reason Start Date Expiration Date V isits Requested Visits Authorized [id number] Closed Specialty Service Requested 03/26/2021 09/23/2022 1 1 Reason for Visit * Consultation (Routine) - Closed Specialty Diagnoses / Procedures Referred By Contac t Referred To Contact Neurology Diagnoses Intracranial hypertension Hoang Castellanos APRN 10 [facility] [place] [address] Gurjit Bass MD [facility] [place] [address] Referral ID Status Reason Start Date Expiration Date V isits Requested Visits Authorized [id number] Closed Specialty Service Requested 02/09/2021 02/09/2022 12 12 Encounter Details Date Type Department Care Team (Late st Contact Info) Description 03/26/2021 1:00 PM EDT [place] [address] Gurjit Bass MD [facility] [place] [address] Bipolar affective disorder, remission status unspecified; Seizures; [...] and they should contact you and your watch caser to set up a clinic appointment. [...] arise. Gurjit Bass MD Professor of neurology, [facility]ly [facility] [employer] [facility] at [facility] Department of Neurology, [place] [address], [address] Pager: [phone], #[phone] Email: [email or web address] [facility] documented in this encounter Progress Notes * [...] me, as I had followed her from 7206-1630. Has a complex medical and neurological history [...] chemistry and liver profile, thyroid function tests, [id number], TSH level, CK and hemoglobin A1c and [...] Hypothyroidism, acquired ??? Borderline personality disorder Per [facility] Psychiatry ??? 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 Review of systems: 1. Eating: Normal [...] 30 tablet 1 ??? Miscellaneous Medical Supply [facility] 1 walker on wheels with seat [...] have spoken with the patient, and the watch caser who accompanied her, to discuss what needs to be done. I have strongly advised her to stop smoking immediately Thank you for this consultation. I will see the patient back in 3 months or sooner if necessary Gurjit Bass MD [place] [address] Pager: [phone], #[phone] Email: CC: Hoang Baltazar MD documented in [...] who have questions please contact the health small animal caretaker that requested your imaging first. ? Narrative [...] patients who have questions please contactthe health small animal caretaker that requested your imaging first. Gurjit Bass MD IMG MRI ORDERABLES documented in this encounter Visit Diagnoses Diagnosis Bipolar affective disorder, remission status unspecified Seizures Other convulsions Myelopathy Unspecified disease of spinal cord Myelopathy Unspecified disease of spinal cord documented in this encounter Care Teams Public Health Social Worker Relationship Specialty Start Date End Date Hoang Castellanos, CARGOMAN [address] [place] [address] PCP - General Family Medicine 03/12/20 documented as of this encounter
--- OUTSIDE RECORDS SUMMARY | 2024-08-01 18:34 | XMS_ITS | Encounter Summary ---
[place] [address] Care Team Providers Care Mainframe Programmer Name Role Phone Hoang Castellanos APRN Primary Care Provider Encounter Details Date Type Department Care Team (Late st Contact Info) Description 03/27/2021 Telephone Primary Care at [facility] [address] [place] [phone] Shannon Cruz, RN Social History Tobacco Use [...] she will get lab work done at [facility] soon. documented in this encounter Plan of Treatment Not on file documented as of this encounter Visit Diagnoses Not on filedocumented in this encounter Care Teams Mainframe Programmer Relationship Specialty Start Date End Date Hoang Castellanos, KILN PULLER [address] [place] [address] PCP - General Family Medicine 03/12/20 documented as of this encounter
--- OUTSIDE RECORDS SUMMARY | 2024-08-01 18:34 | XMS_ITS | Encounter Summary ---
[place] [address] Care Team Providers Care Loss Mitigation Specialist Name Role Phone Hoang Castellanos APRN Primary Care Provider [phone] Encounter Details Date Type Department Care Team (Late st Contact Info) Description 10/13/2020 Telephone Primary Care at [facility] [address] [place] [phone] Shnanon Cruz, RN Social History Tobacco Use Types [...] 11:06 AM EDT Collette RN called from [facility] in regards to Jeannie Lawson Trisha. She is asking if patient needs labs and urine. Let nurse know we needed both. documented in this encounter Plan of Treatment Not on file documented as of this encounter Visit Diagnoses Not on filedocumented in this encounter Care Teams Loss Mitigation Specialist Relationship Specialty Start Date End Date Hoang Castellanos, SPORTS MEDICINE MASSEUR [address] [place] [address] PCP - General Family Medicine 03/12/20 documented as of this encounter
--- OUTSIDE RECORDS SUMMARY | 2024-08-01 18:34 | XMS_ITS | Encounter Summary ---
[place] [address] Care Team Providers Care Rack Pusher Name Role Phone Hoang Castellanos APRN Primary Care Provider Reason for Visit * Reason Onset Date Comments Medication Refill 10/16/2020 Encounter Details Date Type Department Care Team (Late st Contact Info) Description 10/16/2020 Telephone Primary Care at [facility] [address] [place] [phone] Shannon Cruz, briquetter operator Refill Social History Tobacco Use Types Packs/Day [...] Pharmacy notified. * Telephone Encounter - Shannon Curz RN - 10/16/2020 1:35 PM EDT Pharmacy [...] type documented in this encounter Care Teams Rack Pusher Relationship Specialty Start Date End Date Hoang Castellanos APRN [address] [place] [address] PCP - General Family Medicine 03/12/20 documented as of this encounter
--- OUTSIDE RECORDS SUMMARY | 2024-08-01 18:34 | XMS_ITS | Encounter Summary ---
[place] [address] Care Team Providers Care Alligator Hunter Name Role Phone Hoang Castellanos APRN Primary Care Provider Reason for Visit * Reason Onset Date Comments Appointment 12/29/2020 Encounter Details Date Type Department Care Team (Late st Contact Info) Description 12/29/2020 [place] [phone] Keron Theodore MD Appointment Social History Tobacco Use Types Packs/Day [...] on filedocumented in this encounter Care Teams Alligator Hunter Relationship Specialty Start Date End Date Hoang Castellanos, ELECTRONIC SEMICONDUCTOR PROCESSOR [address] [place] [address] PCP - General Family Medicine 03/12/20 documented as of this encounter
--- OUTSIDE RECORDS SUMMARY | 2024-08-01 18:34 | XMS_ITS | Encounter Summary ---
Author Organization [facility] [place] [address] Care Team Providers Care Flask Cleaner Name Role Phone Hoang Castellanos APRN Primary Care Provider Encounter Details Date Type Department Care Team (Late st Contact Info) Description 01/13/2021 [facility] [address] [place] [phone] Provider, His MD Che Social History Tobacco [...] on filedocumented in this encounter Care Teams Flask Cleaner Relationship Specialty Start Date End Date Hoang Castellanos APRN [address] [place] [address] PCP - General Family Medicine 03/12/20 documented as of this encounter
--- OUTSIDE RECORDS SUMMARY | 2024-08-01 18:34 | XMS_ITS | Encounter Summary ---
Author Organization [facility] [place] [address] Care Team Providers Care Mold Changer Name Role Phone Hoang Castellanos APRN Primary Care Provider Reason for Visit * Reason Comments Medication Refill Encounter Details Date Type Department Care Team (Late st Contact Info) Description 12/23/2020 Refill Primary Care at [facility] 10 [place] [phone] Hoang Castellanos APRN 10 [facility] [place] [address] Social History Tobacco Use Types Packs/Day Years [...] on filedocumented in this encounter Care Teams Mold Changer Relationship Specialty Start Date End Date Hoang Castellanos, LOGISTICS RESEARCH ENGINEER [address] [place] [address] PCP - General Family Medicine 03/12/20 documented as of this encounter
--- OUTSIDE RECORDS SUMMARY | 2024-08-01 18:34 | XMS_ITS | Encounter Summary ---
[place] [address] Care Team Providers Care Boat Outboard Engine Mechanic Name Role Phone Hoang Castellanos APRN Primary Care Provider Reason for Referral * Diagnostic Test (Routine) - Closed Specialty Diagnoses / Procedures Referred By Contac t Referred To Contact Cardiology Diagnoses Coronary artery disease involving [place] coronary artery of [place] heart without angina pectoris Procedures Echocardiogram Transthoracic([facility]) Dustin Haynes, [facility] [place] [address] [facility] [place] [address] Referral ID Status Reason Start Date Expiration Date V isits Requested Visits Authorized [id number] Closed Specialty Service Requested 10/01/2020 10/01/2021 1 1 Reason for Visit * Diagnostic Test (Routine) - Closed Specialty Diagnoses / Procedures Referred By Contac t Referred To Contact Cardiology Diagnoses Coronary artery disease involving [place] coronary artery of [place] heart without angina pectoris Procedures Echocardiogram Transthoracic([facility]) Dustin Haynes [facility] [place] [place] [address] [facility] [place] [address] Referral ID Status Reason Start Date Expiration Date V isits Requested Visits Authorized [id number] Closed Specialty Service Requested 10/01/2020 10/01/2021 1 1 Encounter Details Date Type Department Care Team (Late st Contact Info) Description 01/07/2021 12:08 PM EDT - 01/07/2021 11:59 PM EDT Hospital Encounter [place] [phone] Benito Reed MD [facility] [place] [address] Coronary artery disease involving [place] coronary artery of [place] heart without angina pectoris Discharge Disposition: Home [...] 1 Dose by mouth 2 times daily. Acidophilus Capsule TAKE TWO (2) CAPSULES BY [...] 09/28/2021 Ventolin HFA 90 mcg/actuation HFA Aerosol InhalerIndications:Administrative Resources Associate randell obstructive pulmonary disease, unspecified COPD type [...] puff into the lungs daily. 10/12/2020 2021 fluticasone propion-salmeteroL (Advair Diskus) 500-50 mcg/dose Disk [...] mouth daily. 90 tablet 3 03/21/2020 02/17/2021 ARIPiprazole (Abilify) 5 mg Tablet Take 5 [...] 1:27 PM EDT Coronary artery disease involving [place] coronary artery of [place] heart without angina pectoris documented in this encounter Results * ECHO COMPLETE W CONTRAST (01/07/2021 1:27 PM EDT) EF 65 HEARTspotdock SYSTEM Anatomical Region Laterality Modality Other 01/07/2021 Narrative 01/07/2021 1:36 PM EDT Procedure: ?Transthoracic Echocardiogram Patient: ?APOLINAR RUSSELL L ? (Age): 1960(60y) Med Rec#: ? [id number] ?Sex: ?F ? Site Loc: ? [facility] ?Ht / Wt: ??163(cm)/99(kg) Pt. Loc: ?Echo Lab ?BSA: ?2.03 Study Date: ?? 01/07/2021 ?Pt. Type: Outpatient Tape: ? Referring: LAURA Reading: Freddy Mejias ([id number]) Bakeshop Cleaner: Saranya Monson Outside Sales Account Manager: Zackary Feldman Diagnosis: *Atherosclerotic heart disease of [place] coronary artery without angina pectoris (I25.10) BP: [...] Vmax ?0.56 ? m/sec ? MV deceleration sjxi207.41 ? msec ? MV A-wave Vmax ?0.81 [...] ? Mid-Inferior ?Normal ? Mid-Inferoseptal ?Normal ? Lindsay-Septal ? Normal ? Lindsay-Anterior ? Normal ? Lindsay-Lateral ?Normal ? Lindsay-Inferior ? Normal ? Lindsay-Tip ?Normal ? This report has been electronically signed by: Freddy Mejias MD ? 01/07/2021 13:36:15 Images reviewed and interpretation verified [facility] Cardiac Ultrasound Laboratory Procedure Note Freddy Mejias MD - 01/07/2021 Procedure: Transthoracic Echocardiogram Patient: APOLINAR Lawson (Age): 1960(60y) Med Rec#: [id number] Sex: F Site Loc: [facility] Ht / Wt: 163(cm)/99(kg) Pt. Loc: Echo Lab BSA: 2.03 Study Date: 01/07/2021 Pt. Type: Outpatient Tape: Referring: LAURA Reading: Freddy Mejias ([id number]) Bakeshop Cleaner: Saranya Monson Outside Sales Account Manager: Friend, Zackary Diagnosis: *Atherosclerotic heart disease of [place] coronary artery without angina pectoris (I25.10) BP: [...] MV E-wave Vmax 0.56 m/sec MV deceleration aroa159.41 msec MV A-wave Vmax 0.81 m/sec MV [...] Normal Mid-Posterolateral Normal Mid-Inferior Normal Mid-Inferoseptal Normal Lindsay-Septal Normal Lindsay-Anterior Normal Lindsay-Lateral Normal Lindsay-Inferior Normal Lindsay-Tip Normal This report has been electronically signed by: Freddy Mejias MD 01/07/2021 13:36:15 Images reviewed and interpretation verified [facility] Cardiac Ultrasound Laboratory Benito Reed MD ECHO ORDERABLES documented in this encounter Visit Diagnoses Diagnosis Coronary artery disease involving [place] coronary artery of [place] heart without angina pectoris documented [...] mLs documented in this encounter Care Teams Boat Outboard Engine Mechanic Relationship Specialty Start Date End Date Hoang Castellanos APRN [address] [place] [address] PCP - General Family Medicine 03/12/20 documented as of this encounter
--- OUTSIDE RECORDS SUMMARY | 2024-08-01 18:34 | XMS_ITS | Encounter Summary ---
[place] [address] Care Team Providers Care Pinked Edge Sewing Machine Operator Name Role Phone Hoang Castellanos APRN Primary Care Provider Encounter Details Date Type Department Care Team (Late st Contact Info) Description 12/17/2020 Telephone Primary Care at [facility] 10 [place] [phone] Jeannie Luciano, RN Social History Tobacco Use [...] insulin documented in this encounter Care Teams Pinked Edge Sewing Machine Operator Relationship Specialty Start Date End Date Hoang Castellanos, CLINICAL NURSING ASSISTANT [address] [place] [address] PCP - General Family Medicine 03/12/20 documented as of this encounter
--- OUTSIDE RECORDS SUMMARY | 2024-08-01 18:34 | XMS_ITS | Encounter Summary ---
Author Organization [facility] [place] [address] Care Team Providers Care Aircraft Cleaner Name Role Phone Hoang Castellanos APRN Primary Care Provider Encounter Details Date Type Department Care Team (Late st Contact Info) Description 12/10/2020 Telephone Primary Care at [facility] 10 [facility] [place] [address] Hoang Castellanos APRN [address] [place] [address] Social History Tobacco Use Types Packs/Day Years [...] sister. Jeannie is going to have someone brass pickler a form so she can fill it [...] She has an appointment her at the [facility] on 12/15/2020 with her Provider, Hoang Castellanos [...] panicking. She said she called triage at [facility]. She doesn't want to go to [...] on filedocumented in this encounter Care Teams Aircraft Cleaner Relationship Specialty Start Date End Date Hoang Castellanos, TESTING AND REGULATING CHIEF [address] [place] [address] PCP - General Family Medicine 03/12/20 documented as of this encounter
--- OUTSIDE RECORDS SUMMARY | 2024-08-01 18:34 | XMS_ITS | Encounter Summary ---
Author Organization [facility] [address] Care Team Providers Care Printer Technician Name Role Phone Hoang Castellanos APRN Primary Care Provider Reason for Visit * Consultation (Routine) - Closed Specialty Diagnoses / Procedures Referred By Contdavide t Referred To Contact Neurology Diagnoses Right leg weakness Dizziness Hoang Castellanos APRN [address] [place] [address] [facility] [address] [place] [address] Referral ID Status Reason Start Date Expiration Date V isits Requested Visits Authorized [id number] Closed Specialty Service Requested 12/17/2020 12/17/2021 12 12 Encounter Details Date Type Department Care Team (Late st Contact Info) Description 02/04/2021 8:00 AM EDT TH Visit (TeleHealth) [place] [address] Altagracia Baltazar MD [facility] [place] [address] Weakness of both lower limbs [...] Overview Note: DEXA done at [facility] on 10/29/15: [...] by Ken Sanders MD at [facility] ENDOSCOPY ??? PRO UPPER GI ENDOSCOPY, BIOPSY N/A 09/19/2018 UPPER GASTROINTESTINAL ENDOSCOPY,WITH BIOPSY SINGLE OR MULTIPLE (WRVU 2.49) performed by Tyron Mercado MD at [facility] ENDOSCOPY ??? TONSILLECTOMY ??? UPPER GI ENDOSCOPY, EXAM 12/04/2010 UPPER GI ENDOSCOPY performed by DEE WRIGHT at [facility] ENDOSCOPY Medications: Current Outpatient Medications on File [...] 90 tablet 3 ??? Miscellaneous Medical Supply [facility] 1 walker on wheels [...] lancets 30 gauge Misc 1 each by [facility].(Non-Drug; Combo Route) route daily. [...] limbs documented in this encounter Care Teams Printer Technician Relationship Specialty Start Date End Date Hoang Castellanos, RECOVERY RN [address] [place] [address] PCP - General Family Medicine 03/12/20 documented as of this encounter
--- OUTSIDE RECORDS SUMMARY | 2024-08-01 18:34 | XMS_ITS | Encounter Summary ---
[place] [address] Care Team Providers Care Lead Front Desk Agent Name Role Phone Hoang Castellanos APRN Primary Care Provider [phone] Encounter Details Date Type Department Care Team (Latest Contact Info) Description 02/26/2021 12:45 PM EDT Ancillary Procedure Radiology X[facility] at [facility] [address] [place] [address] Jose A Mejia MD [address] [place] [address] Chronic pain of right ankle Social History [...] have questions please contact the health rn urgent care that requested your imaging first. ? Electronically signed by: Rinku Wilkins MD, [facility] ([phone]), at 02/26/2021 12:58 PM Narrative 02/26/2021 12:58 [...] who have questions please contactthe health rn urgent care that requested your imaging first. Jose A Mejia MD IMG DX ORDERABLES documented in this encounter Visit Diagnoses Diagnosis Chronic pain of right ankle documented in this encounter Care Teams Lead Front Desk Agent Relationship Specialty Start Date End Date Hoang Castellanos, SENIOR LINUX UNIX ADMINISTRATOR [address] [place] [address] PCP - General Family Medicine 03/12/20 documented as of this encounter
--- OUTSIDE RECORDS SUMMARY | 2024-08-01 18:34 | XMS_ITS | Encounter Summary ---
Author Organization [facility] Address [facility] [place] [address] Care Team Providers Care Exploration Engineer Name Role Phone Hoang Castellanos APRN Primary Care Provider Reason for Referral * Home Health Care (Routine) - Closed Specialty Diagnoses / Procedures Referred By Contac t Referred To Contact Diagnoses Dizziness Generalized weakness Benign essential hypertension Right leg weakness Ananth Wilson MD [address] [place] [address] Unknown None Referral ID Status Reason Start Date Expiration Date V isits Requested Visits Authorized [id number] Closed Continuity of Care 02/03/2021 08/02/2021 1 1 Encounter Details Date Type Department Care Team (Late st Contact Info) Description 02/03/2021 10:00 AM EDT Office Visit Primary Care at [facility] [address] [place] [phone] Ananth Wilson MD [address] [address] Dizziness; Generalized weakness; Benign essential hypertension; Right [...] a 60 y.o. female presenting to the [facility] Primary Care Clinic Balance Issues/Dizziness Sx for [...] limbs documented in this encounter Care Teams Exploration Engineer Relationship Specialty Start Date End Date Hoang Castellanos APRN [address] [place] [address] PCP - General Family Medicine 03/12/20 documented as of this encounter
--- OUTSIDE RECORDS SUMMARY | 2024-08-01 18:34 | XMS_ITS | Encounter Summary ---
Author Organization [facility] [place] [address] Care Team Providers Care Seo Strategist Name Role Phone Hoang Castellanos APRN Primary Care Provider Reason for Referral * Consultation (Routine) - Closed Specialty Diagnoses / Procedures Referred By Contac t Referred To Contact Thoracic Surgery Diagnoses Smokes cigarettes Hoang Castellanos APRN [address] [place] [address] Beatriz Matthews APRN [facility] [place] [address] Referral ID Status Reason Start Date Expiration Date V isits Requested Visits Authorized [id number] Closed Consult, Test & Treat 03/24/2021 03/24/2022 12 12 * Home Health Care (Routine) - Closed Specialty Diagnoses / Procedures Referred By Contac t Referred To Contact Physical Therapy Diagnoses Acute pain of right shoulder Hoang Castellanos APRN [address] [place] [address] [facility] [address] [address] Referral ID Status Reason Start Date Expiration Date V isits Requested Visits Authorized [id number] Closed Continuity of Care 03/23/2021 09/19/2021 12 12 * Diagnostic Test (Routine) - Closed Specialty Diagnoses / Procedures Referred By Contac t Referred To Contact Radiology Diagnoses Age-related osteoporosis without current pathological fracture Procedures DXA Central Spine, Hip, and/or Whole Body (Generic) Hoang Castellanos APRN [address] [place] [address] [facility] Rad Xray [address] [place] [address] Referral ID Status Reason Start Date Expiration Date V isits Requested Visits Authorized [id number] Closed Specialty Service Requested 03/23/2021 09/21/2022 1 1 Reason for Visit * Reason Comments Hypertension Diabetes Dizziness Edema Encounter Details Date Type Department Care Team (Late Contact Info) Description 03/23/2021 10:00 AM EDT Office Visit Primary Care at [facility] [address] [place] [address] Hoang Casetllanos APRN [address] [place] [address] Type 2 diabetes mellitus without complication, without [...] this encounter Progress Notes * Hoang Castellanos, WHEELCHAIR VAN OPERATOR FIRST RESPONDER - 03/23/2021 10:00 AM EDT Subjective: HPI: Jeannie Rico is a 60 y.o. female presenting to the [facility] HPI Patient presents for [...] - Referral to Neurology - did a Bionaturis video ordered an MRI of my neck. Neurology-Dr. Baltazar 02/04 Severe spinal stenosis on MRI c-spine F/u with Dr. Baltazar on 04/14 ?? Dizziness - Referral to Neurology - Dr. Bass on , 03/26. [facility] PT/OT working on balance at [...] this encounter. (Established patient total visit time: 26553 - 20min, 72314 - 30 min, 47564 - 40 min; New patient total visit times: 59460 - 30 min, 83938 - 45 min, 14546 - 60 min) documented in this encounter [...] BMD measurements and plots are available in [employer] under the imaging tab. Paper copies will be sent to providers without ESynclogue access. If you have received this report without the data sheet and do not have access to EDr. Tariff, please contact [facility] at [phone]. Thank you for letting us participate in the care of this patient. ??If you are a health care provider and have any questions regarding this report, please contact the number below. ??For patients who have questions please contact the health multi care technician that requested your imaging first. ? Electronically signed by: Hong Catherine MD, [facility] ([phone]), at 05/26/2021 1:03 PM Narrative 05/26/2021 1:03 [...] BMD measurements and plots are available in EDr. Tariffunder the imaging tab. Paper copies will be sent to providers without Meuugame access.If you have received this report without the data sheet and do not haveaccess to E-, please contact [facility] at [phone]. Thank you for letting us participate in the care of this patient. If youare a health care provider and have any questions regarding this report,please contact the number below. For patients who have questions please contactthe health multi care technician that requested your imaging first. Electronically signed by: Hong Catherine MD, [facility]([phone]), at 05/26/2021 1:03 PM Hoang Castellanos APRN [...] mammogram documented in this encounter Care Teams Seo Strategist Relationship Specialty Start Date End Date Hoang Castellanos APRN [address] [place] [address] PCP - General Family Medicine 03/12/20 documented as of this encounter
--- OUTSIDE RECORDS SUMMARY | 2024-08-01 18:34 | XMS_ITS | Encounter Summary ---
[place] [address] Care Team Providers Care Population Health Manager Name Role Phone Hoang Castellanos APRN Primary Care Provider Reason for Referral * Diagnostic Test (Routine) - Closed Specialty Diagnoses / Procedures Referred By Contac t Referred To Contact Radiology Diagnoses Coronary artery disease involving [place] coronary artery of [place] heart without angina pectoris Procedures NM Pharmacologic Stress and Rest Myocardial Perfusion Dustin Haynes [facility] [address] [place] [address] Referral ID Status Reason Start Date Expiration Date V isits Requested Visits Authorized [id number] Closed Specialty Service Requested 02/16/2021 07/24/2021 1 1 * Diagnostic Test (Routine) - Closed Specialty Diagnoses / Procedures Referred By Contac t Referred To Contact Radiology Diagnoses Coronary artery disease involving [place] coronary artery of [place] heart without angina pectoris Procedures NM Pharmacologic Stress CT Component Dustin Haynes [facility] [address] [place] [address] Referral ID Status Reason Start Date Expiration Date V isits Requested Visits Authorized [id number] Closed Specialty Service Requested 02/16/2021 07/24/2021 1 1 * Consultation (Routine) - Closed Specialty Diagnoses / Procedures Referred By Contac t Referred To Contact Primary Care Diagnoses Coronary artery disease involving [place] coronary artery of [place] heart without angina pectoris Dustin Haynes DO [facility] [address] CARDIOLOGY DEPT [place], [place] [id number] [place] [address] [place] [address] Referral ID Status Reason Start Date Expiration Date V isits Requested Visits Authorized [id number] Closed Consult, Test & Treat 01/07/2021 01/07/2022 1 1 Reason for Visit * Consultation (Routine) - Closed Specialty Diagnoses / Procedures Referred By Contac t Referred To Contact Cardiology Diagnoses Coronary artery disease involving [place] coronary artery of [place] heart without angina pectoris CAD - Coronary artery disease involving [place] coronary artery of [place] heart without angina pectoris *ED Hoang Castellanos M, VARIETY LATHE OPERATOR [address] [place] [address] Freddy Mejias MD [facility] [place] [address] Referral ID Status Reason Start Date Expiration Date V isits Requested Visits Authorized [id number] Closed Consult, Test & Treat 07/16/2020 07/16/2021 6 6 Encounter Details Date Type Department Care Team (Late st Contact Info) Description 01/07/2021 2:20 PM EDT Office Visit Cardiology at [address] [address] Benito Reed MD [facility] [place] [address] Ananth Almodovar MD [facility] [place] [address] Dustin Haynes DO Coronary artery disease involving [place] coronary artery of [place] heart without angina pectoris Social History Tobacco [...] from the original note were not included. [facility] [place] [address] CARDIOLOGY OUTPATIENT NOTE PRIMARY CARE PROVIDER: Hoang [...] ??? Osteoporosis DEXA done at [facility] on 10/29/15: osteoporosis at the [...] 90 tablet 3 ??? Miscellaneous Medical Supply [facility] 1 walker on [...] daily (with meals). ??? lancets [facility] by [facility].(Non-Drug; Combo Route) route [...] SOCIAL HISTORY: , no children. Lives in [place]. Occupation: On Disability. Smoking: Active smoker, 1-2ppd, [...] remainder of report for additional findings. Zio 3/18/21: - Atrial fibrillation none - <1% atrial [...] of stress test or symptoms. Dustin Haynes, Extrusion Process Operator; PGY-5 01/07/2021 I have seen the patient [...] Outpatient Referral Routine Coronary artery disease involving [place] coronary artery of [place] heart without angina pectoris Ordered: 01/07/2021 documented [...] questions please contact the health day care attendant that requested your imaging first. ? Electronically signed by: Matthew Morrison MD, [facility] ([phone]), at 04/15/2021 3:42 PM Narrative 04/15/2021 3:42 [...] have questions please contactthe health day care attendant that requested your imaging first. Electronically signed by: Matthew Morrison MD, [facility]([phone]), at 04/15/2021 3:42 PM Benito Reed MD [...] questions please contact the health day care attendant that requested your imaging first. ? Electronically signed by: Matthew Morrison MD, [facility] ([phone]), at 04/15/2021 3:42 PM Narrative 04/15/2021 3:42 [...] have questions please contactthe health day care attendant that requested your imaging first. Benito Reed MD IMG NM ORDERABL ES documented in this encounter Visit Diagnoses Diagnosis Coronary artery disease involving [place] coronary artery of [place] heart without angina pectoris Coronary artery disease involving [place] coronary artery of [place] heart without angina pectoris Coronary artery disease involving [place] coronary artery of [place] heart without angina pectoris documented in this encounter Care Teams Population Health Manager Relationship Specialty Start Date End Date Hoang Castellanos, VARIETY LATHE OPERATOR [address] [place] [address] PCP - General Family Medicine 03/12/20 documented as of this encounter
--- OUTSIDE RECORDS SUMMARY | 2024-08-01 18:34 | XMS_ITS | Encounter Summary ---
Author Organization [facility] Address [facility] [place] [address] Care Team Providers Care Project Development Manager Name Role Phone Hoang Castellanos APRN Primary Care Provider Encounter Details Date Type Department Care Team (Late st Contact Info) Description 03/27/2021 [place] [address] Altagracia Baltazar MD [facility] [place] [address] Social History Tobacco Use Types Packs/Day Years [...] on filedocumented in this encounter Care Teams Project Development Manager Relationship Specialty Start Date End Date Hoang Castellanos, HR OPERATIONS ADVISOR [address] [place] [address] PCP - General Family Medicine 03/12/20 documented as of this encounter
--- OUTSIDE RECORDS SUMMARY | 2024-08-01 18:34 | XMS_ITS | Encounter Summary ---
[place] [address] Care Team Providers Care Clinical Safety Manager Name Role Phone Hoang Castellanos APRN Primary Care Provider [phone] Encounter Details Date Type Department Care Team (Late st Contact Info) Description 12/09/2020 Telephone Primary Care at [facility] [address] [facility] [place] [phone] Hoang Castellanos APRN [address] [place] [address] Social History Tobacco Use Types Packs/Day Years [...] Calderón RN - 12/09/2020 5:01 PM EDT TIRE SETTER came to triage office to report patient is scheduled for OV tomorrow for loss of sight right eye, PMH DM. She states per provider Anthony Carrington APRN, patient needs to be triaged further for stroke assessment. Call to patient for further triage. Left detailed VM to call provider second butler via answering servicefor further triage. Advised DH ED or call 911 if sudden partial or total vision loss, change in speech, weakness, facial droop, confusion, dizziness. ED for severe eye pain. Will send myDH message as well. documented in this encounter Plan of Treatment Not on file documented as of this encounter Visit Diagnoses Not on filedocumented in this encounter Care Teams Clinical Safety Manager Relationship Specialty Start Date End Date Hoang Castellanos, PREVENTION RN [address] [place] [address] PCP - General Family Medicine 03/12/20 documented as of this encounter
--- OUTSIDE RECORDS SUMMARY | 2024-08-01 18:34 | XMS_ITS | Encounter Summary ---
[place] [address] Care Team Providers Care Supervisor Sanding Name Role Phone Hoang Castellanos APRN Primary Care Provider Encounter Details Date Type Department Care Team (Late st Contact Info) Description 10/15/2020 Telephone Primary Care at [facility] [address] [facility] [place] [phone] Shannon Cruz, RN Social History Tobacco Use [...] filedocumented in this encounter Care Teams Supervisor Sanding Relationship Specialty Start Date End Date Hoang Castellanos, SMA [address] [place] [address] PCP - General Family Medicine 03/12/20 documented as of this encounter
--- OUTSIDE RECORDS SUMMARY | 2024-08-01 18:34 | XMS_ITS | Encounter Summary ---
[place] [address] Care Team Providers Care Relations Liaison Name Role Phone Hoang Castellanos APRN Primary Care Provider Encounter Details Date Type Department Care Team (Late st Contact Info) Description 12/12/2020 Telephone Primary Care at [facility] [address] [place] [phone] Shannon Cruz, RN Social History Tobacco Use [...] on filedocumented in this encounter Care Teams Relations Liaison Relationship Specialty Start Date End Date Hoang Castellanos, PAYMENT SPECIALIST [address] [place] [address] PCP - General Family Medicine 03/12/20 documented as of this encounter
--- OUTSIDE RECORDS SUMMARY | 2024-08-01 18:34 | XMS_ITS | Encounter Summary ---
[place] [address] Care Team Providers Care Paint Spraying Machine Operator Helper Name Role Phone Hoang Castellanos APRN Primary Care Provider Reason for Referral * Diagnostic Test (Routine) - Closed Specialty Diagnoses / Procedures Referred By Contac t Referred To Contact Radiology Diagnoses Weakness of both lower limbs Bilateral hand numbness Procedures MRI Cervical Spine wo Contrast (Generic) Altagracia Baltazar MD [facility] [place] [address] [place] [address] Referral ID Status Reason Start Date Expiration Date V isits Requested Visits Authorized [id number] Closed Specialty Service Requested 02/04/2021 08/07/2022 1 1 Reason for Visit * Diagnostic Test (Routine) - Closed Specialty Diagnoses / Procedures Referred By Contac t Referred To Contact Radiology Diagnoses Weakness of both lower limbs Bilateral hand numbness Procedures MRI Cervical Spine wo Contrast (Generic) Altagracia Baltazar MD [facility] [place] [address] [place] [address] Referral ID Status Reason Start Date Expiration Date V isits Requested Visits Authorized [id number] Closed Specialty Service Requested 02/04/2021 08/07/2022 1 1 Encounter Details Date Type Department Care Team (Latest Contact Info) Description 03/10/2021 7:01 AM EDT - 03/10/2021 11:59 PM EDT Hospital [place] [address] Altagracia Baltazar MD [facility] [place] [place] [address] Weakness of both lower limbs; Bilateral hand [...] 1 Dose by mouth 2 times daily. Advair Diskus 500-50 mcg/dose Disk with Device 03/01/2021 04/24/2021 isosorbide mononitrate CR (Imdur) 30 mg Tablet Sustained Release 24 hrIndications:Coronary artery disease involving hab[place] coronary artery of habemat[place]l heart without angina pectoris TAKE ONE (1) [...] 09/28/2021 Ventolin HFA 90 mcg/actuation HFA Aerosol InhalerIndications:Biology Adjunct Instructor randell obstructive pulmonary disease, unspecified COPD type [...] 11 10/02/2020 09/01/2021 lisinopriL (Prinivil;Zestril) 40 mg TabletIndications:Candy n essential hypertension Take 1 [...] puff into the lungs daily. 10/12/2020 2021 cholecalciferol, Vitamin D3, (Vitamin D-3) 50 mcg [...] for 30 min. 52 tablet 04/01/2020 03/23/2021 ARIPiprazole (Abilify) 5 mg Tablet Take 5 mg by mouth daily. Taking half 12/12/2019 12/11/2021 tiotropium bromide (SPIRIVA RESPIMAT) 2.5 mcg/actuation MistIndications:Asthma [...] who have questions please contact the health group care worker that requested your imaging first. ? Narrative [...] patients who have questions please contactthe health group care worker that requested your imaging first. Altagracia Baltazar MD IMG MRI ORDERABLES documented in this encounter Visit Diagnoses Diagnosis Weakness of both lower limbs Other musculoskeletal symptoms referable to limbs Bilateral hand numbness Disturbance of skin sensation documented in this encounter Care Teams Paint Spraying Machine Operator Helper Relationship Specialty Start Date End Date Hoang Castellanos, ASSAULT AMPHIBIOUS VEHICLE OFFICER [address] [place] [address] PCP - General Family Medicine 03/12/20 documented as of this encounter
--- OUTSIDE RECORDS SUMMARY | 2024-08-01 18:34 | XMS_ITS | Encounter Summary ---
Author Organization [facility] [place] [address] Care Team Providers Care Pediatric Ophthalmologist Name Role Phone Hoang Castellanos APRN Primary Care Provider Encounter Details Date Type Department Care Team (Latest Contact Info) Description 02/26/2021 12:05 PM EDT Laboratory Appointment Laboratory at [facility] [address] [place] [phone] Weakness of both lower limbs; Diplopia Social [...] (ABNORMAL) Differential, Automated (02/26/2021 12:14 PM EDT) Neutrophil % 67.7 % [facility] Neutrophil Absolute 6.51(H) 1.70 - 6.10 x10(3)/mc L [facility] Lymph % 23.3 % [facility] Lymphocytes Abs 2.2 0.9 - 3.2 x10(3)/mc L [facility] Monocyte % 7.2 % [facility] Monocyte Abs 0.7 0.3 - 0.9 x10(3)/mc L [facility] Eos % 1.1 % [facility] Eosinophils Abs 0.1 0.0 - 0.4 x10(3)/mc L [facility] Basophil % 0.5 % [facility] Baso Absolute [...] Absolute 0.02 0.00 - 0.04 x10(3)/mc L [facility] Blood 02/26/2021 12:1 4 PM EDT 02/26/2021 12:26 PM EDT Narrative Resulting Agency Comment Spec In Lab Altagracia Baltazar MD HEMATOLOGY ORDERABL [facility] [address] [place] [address] * (ABNORMAL) Hemogram (02/26/2021 12:14 PM EDT) White Blood Cell 9.6(H) 4.0 - 9.5 x10(3)/mc L [facility] Red Blood Cell 4.48 4.00 - 5.21 x10(6)/mc L [facility] Hemoglobin 14.1 11.7 - 15.5 gm/dL [facility] Hematocrit 43.2 35.7 - 45.8 % [facility] Mean Cell Volume 96.4(H) 82.6 - 94.4 fL [facility] Mean Cell Hemoglobin 31.5 27.1 - 32.0 pg [facility] Mean Cell Hemoglobin Concentration 32.6 31.7 - 35.0 gm/dL [facility] Platelet 243 145 - 357 x10(3)/mc L [facility] RDW Standard Deviation 51.8(H) 37.0 - 46.0 fL [facility] RDW coefficient of variation 14.3(H) 11.5 - 14.1 % [facility] Mean Platelet Volume 9.8 7.6 - 12.9 fL [facility] Blood 02/26/2021 12:1 4 PM EDT 02/26/2021 12:26 PM EDT Narrative Resulting Agency Comment Spec In Lab Altagracia Baltazar MD HEMATOLOGY ORDERABL [facility] [address] [place] [address] * CK (02/26/2021 12:14 PM EDT) Creatine Kinase 79 0 - 160 unit/L [facility] Blood 02/26/2021 12:1 4 PM EDT 02/26/2021 12:26 PM EDT Narrative Resulting Agency Comment Spec In Lab Altagracia Baltazar MD CHEMISTRY ORDERABLE S Performing Organization Address [facility] Co de Phone Number [facility] [address] [place] [address] * Acetylcholine Receptor Ab Binding (02/26/2021 12:14 PM EDT) [facility] Achr Binding Ab (NOVEMBER) 0.00 <=0.02 nmol/L [facility] Comment: ADDITIONAL INFORMATION This test was developed and its performance characteristics determined by [facility] in a manner consistent with CLIA requirements. This test has not been cleared or approved by the U.S. Food and Drug Administration. Test Performed by: [place] [address] Segmental Wall Installer: Skinny Reyes M.D. Ph.D.; CLIA# [id number] Blood 02/26/2021 12:1 4 PM EDT 02/26/2021 5:14 PM EDT Narrative Resulting Agency Comment Spec In Lab Altagracia Baltazar MD LAB SEND OUT ORDERA BLES Performing Organization Address [facility] Co de Phone Number [facility] [address] [place] [address] * (ABNORMAL) Basic Metabolic Panel (non-fasting) (02/26/2021 12:14 PM EDT) [facility] Glucose 107 65 - 199 mg/dL [...] questions. Chloride 101 98 - 107 mmol/L [facility] Carbon Dioxide 25 22 - 31 mmol/L [facility] Anion Gap 13 5 - 15 mmol/L [facility] Calcium 9.7 8.5 - 10.5 mg/dL [facility] Est Glomerular Filtration Rate 96 >=60 [...] Altagracia Baltazar MD CHEMISTRY ORDERABLE S [facility] [address] [place] [address] documented in this encounter Visit Diagnoses Diagnosis Weakness of both lower limbs Other musculoskeletal symptoms referable to limbs Diplopia documented in this encounter Care Teams Pediatric Ophthalmologist Relationship Specialty Start Date End Date Hoang Castellanos, DRAMATIC ARTS HISTORIAN [address] [place] [address] PCP - General Family Medicine 03/12/20 documented as of this encounter
--- OUTSIDE RECORDS SUMMARY | 2024-08-01 18:34 | XMS_ITS | Encounter Summary ---
Author Organization [facility] [place] [address] Care Team Providers Care Vice President Of Development Name Role Phone Hoang Castellanos APRN Primary Care Provider Reason for Visit * Reason Onset Date Comments TeleHealth 02/03/2021 Encounter Details Date Type Department Care Team (Late st Contact Info) Description 02/03/2021 [place] [address] Altagracia Baltazar MD [facility] [place] [address] TeleHealth Social History Tobacco Use Types Packs/Day [...] on filedocumented in this encounter Care Teams Vice President Of Development Relationship Specialty Start Date End Date Hoang Castellanos APRN [address] [place] [address] PCP - General Family Medicine 03/12/20 documented as of this encounter
--- OUTSIDE RECORDS SUMMARY | 2024-08-01 18:35 | XMS_ITS | Encounter Summary ---
Author Organization [facility] [place] [address] Care Team Providers Care Water Taxi Boat Mate Name Role Phone Hoang Castellanos APRN Primary Care Provider Encounter Details Date Type Department Care Team (Late st Contact Info) Description 04/04/2020 Telephone Orthopaedics at [facility] [address] [phone] Talita Hernandez MD [address] [place] [address] Social History Tobacco Use Types Packs/Day Years [...] filedocumented in this encounter Care Teams Water Taxi Boat Mate Relationship Specialty Start Date End Date Hoang Castellanos APRN [address] [place] [address] PCP - General Family Medicine 03/12/20 documented as of this encounter
--- OUTSIDE RECORDS SUMMARY | 2024-08-01 18:35 | XMS_ITS | Encounter Summary ---
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 Repeated falls Procedures Ziopatch 48 Hrs-15 Days Dustin Haynes [facility] [place] [address] Referral ID Status Reason Start Date Expiration Date V isits Requested Visits Authorized [id number] Closed Specialty Service Requested 10/01/2020 10/01/2021 1 1 Reason for Visit * Diagnostic Test (Routine) - Closed Specialty Diagnoses / Procedures Referred By Contac t Referred To Contact Diagnoses 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 Repeated falls Procedures Ziopatch 48 Hrs-15 Days Dustin Haynes [facility] [address] Referral ID Status Reason Start Date Expiration Date V isits Requested Visits Authorized [id number] Closed Specialty Service Requested 10/01/2020 10/01/2021 1 1 Encounter Details Date Type Department Care Team (Late st Contact Info) Description 10/09/2020 8:25 AM EDT - 10/09/2020 11:59 PM EDT Hospital Encounter Non-Invasive Cardiology Lab [facility] [place] [phone] Benito Reed MD [facility] [place] [address] 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 omeprazole (PriLOSEC) 20 mg Capsule, Delayed Release(E.C.)Indicatio [...] 1 06/02/2020 12/01/2021 ibuprofen (Advil;Motrin) 800 mg TabletIndications:Tap Builder randell right-sided low back pain without sciatica [...] hours as needed for Indigestion. 11/26/2021 lisinopriL (Prinivil;Zestril) 20 mg Tablet 09/01/2020 10/10/2020 meloxicam (MOBIC) 15 mg Tablet Take 1 tablet by mouth daily. 30 tablet 3 08/12/2020 10/10/2020 clopidogreL (Plavix) 75 mg Tablet Take 1 tablet by mouth daily. 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 Zio Patch? 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
--- OUTSIDE RECORDS SUMMARY | 2024-08-01 18:35 | XMS_ITS | Encounter Summary ---
Author Organization [facility] [place] [address] Care Team Providers Care Granite Block Paver Name Role Phone Hoang Castellanos APRN Primary Care Provider Reason for Visit * Reason Comments URI Encounter Details Date Type Department Care Team (Late st Contact Info) Description 04/03/2020 11:30 AM EDT Office Visit Primary Care at [facility] [address] [place] [phone] Karl Rowe MD [address] [place] [address] Suspected COVID-19 virus infection; Chronic obstructive pulmonary [...] a 59 y.o. female presenting to the [facility] Primary Care Clinic URI This is a [...] to rapid Await results prior to leaving [facility] campus as patient uses Public transportation There are no Patient Instructions on file for this visit. FOLLOWUP: No follow-ups on file. documented in this encounter Plan of Treatment Not on file documented as of this encounter Procedures Procedure Name Priority Date/Time Associated Diagnosis Comments RAPID COVID-19 PCR ([facility]D/[facility]) Routine 04/03/2020 11:19 AM EDT documented in this encounter Results * COVID-19 PCR (04/03/2020 11:19 AM EDT) SARS-CoV-2 RNA (Rapid) Not Detected Not Detected [facility] Comment: This result should be [...] using the Simplexa COVID-19 Direct Assay by [employer] as authorized by the FDA issued Emergency [...] Department of Pathology and Laboratory Medicine at [facility], certified under the Clinical Laboratory Improvement Amendments [...] Information for Healthcare Professionals (https://www.cdc.gov/coronavirus/2019-ncov/hcp/index.html). SARS-CoV-2 Source TILE POWER SHEAR OPERATOR Swab [facility] Nasopharyngeal swab (specimen) Other / Unknown 04/03/2020 11:19 AM EDT 04/03/2020 12:42 PM EDT Comment:Symptoms->Fever / Re spiratory Symptoms Narrative Resulting Agency Comment Spec In Lab / APD Hoang Castellanos APRN MICROBIOLOGY - GENER AL ORDERABLES [facility] [place] [address] documented in this encounter Visit Diagnoses Diagnosis Suspected COVID-19 virus infection Chronic obstructive pulmonary disease, unspecified COPD type documented in this encounter Care Teams Granite Block Paver Relationship Specialty Start Date End Date Hoang Castellanos APRN [address] [place] [address] PCP - General Family Medicine 03/12/20 documented as of this encounter
--- OUTSIDE RECORDS SUMMARY | 2024-08-01 18:35 | XMS_ITS | Encounter Summary ---
Author Organization [facility] Address [facility] [place] [address] Care Team Providers Care Box Printing Machine Operator Name Role Phone Hoang Castellanos APRN Primary Care Provider Reason for Visit * Reason Comments Right Ankle Pain Encounter Details Date Type Department Care Team (Late st Contact Info) Description 07/03/2020 11:32 AM EST - 07/03/2020 6:11 PM EST Emergency Emergency Services at [facility] [address] [place] [phone] Nilam Blair MD [facility] [place] [address] Sprain of right ankle, unspecified ligament, initial [...] sent through Care Everywhere. * Ankle Sprain (Burkinan) documented in this encounter Medications at Time of Discharge Medication Sig Dispensed Refills Start Date End Date Miscellaneous Medical Supply MiscIndications:Dizzin ess,Chronic right-sided low back pain without sciatica 1 walker on wheels with seat 1 each 03/12/2020 multivitamin (THERAGRAN) Tablet Take 1 tablet by mouth daily. MARIJUANA ORAL Take 1 Dose by mouth 2 times daily. nitroGLYcerin (Nitrostat) 0.4 mg Tablet, Sublingual Place 1 tablet under the tongue every 5 minutes as needed for Chest pain. 30 tablet 1 06/02/2020 12/01/2021 ibuprofen (Advil;Motrin) 800 mg TabletIndications:Ob Gyn randell right-sided low back pain without sciatica [...] 6 hours as needed for Indigestion. 11/26/2021 fluticasone propion-salmeteroL (Advair Diskus) 500-50 mcg/dose Disk [...] mouth daily. 90 tablet 3 03/21/2020 02/17/2021 traZODone (Desyrel) 100 mg Tablet Take 1 [...] file Gets together: Not on file Attends religion service: Not on file Active member of [...] BIOPSY performed by Ken Sanders MD at [facility] ??? PRO UPPER GI ENDOSCOPY, BIOPSY N/A 09/19/2018 UPPER GASTROINTESTINAL ENDOSCOPY,WITH BIOPSY SINGLE OR MULTIPLE (WRVU 2.49) performed by Tyron Mercado MD at [facility] ??? TONSILLECTOMY ??? UPPER GI ENDOSCOPY, EXAM 12/04/2010 UPPER GI ENDOSCOPY performed by DEE WRIGHT at [facility] Review of Systems All other systems [...] ligament, initial encounter Nilam Blair MD 07/03/20 [id number] * Evonne Evangelista RN - 07/03/2020 4:50 [...] was faxed to the patient's preferred agency, [facility] ([phone]). * Care Management - Lele Davenport - 07/03/2020 4:27 PM EST Met with pt at RN request to discuss VNA services for home PT and review any other needs. Pt is agreeable to VNA services and after reviewing options requests referral to [facility]. She denies need for other community services [...] a commode for free through localagencies including [facility]. VNA referral initiated, will continue to follow [...] ??? Osteoporosis Overview Note: DEXA done at [facility] on 10/29/15: osteoporosis at the left hip T-3, and osteopenia of the spine T-1.9 ??? Atherosclerosis of kenaitze coronary artery of kenaitze heart without angina pectoris ??? Smokes cigarettes [...] BIOPSY performed by Ken Sanders MD at [facility] ??? PRO UPPER GI ENDOSCOPY, BIOPSY N/A 09/19/2018 UPPER GASTROINTESTINAL ENDOSCOPY,WITH BIOPSY SINGLE OR MULTIPLE (WRVU 2.49) performed by Tyron Mercado MD at [facility] ??? TONSILLECTOMY ??? UPPER GI ENDOSCOPY, EXAM 12/04/2010 UPPER GI ENDOSCOPY performed by DEE WRIGHT at [facility] Prior Hospital Care related to current [...] her friend, otherwise will get one from [employer] ?? Educated pt on availability of shoe [...] Pt is in agreement Charges: Ev low NuScriptRx, Self care 2017 PT Evaluation Code Rationale: [...] Date/Time Associated Diagnosis Comments RAPID COVID-19 PCR ([facility]) STAT 07/03/2020 1:27 PM EST HEMOGRAM STAT 07/03/2020 12:55 PM EST DIFFERENTIAL, AUTOMATED STAT 07/03/2020 12:55 PM EST HC PROTHROMBIN TIME STAT 07/03/2020 1 2:55 PM EST HC CBC,PLT & AUTO DIFF STAT 07/03/2020 12:55 PM EST BASIC METABOLIC PANEL STAT 07/03/2020 12:55 PM EST XR ANKLE MIN 3 VIEWS RIGHT STAT 07/03/2020 12:41 PM EST XR CHEST PA AND LATERAL STAT 07/03/2020 12:40 PM EST documented in this encounter Results * COVID-19 PCR (07/03/2020 1:27 PM EST) SARS-CoV-2 RNA (Rapid) Not Detected Not Detected [facility] Comment: This result [...] using the Simplexa COVID-19 Direct Assay by [employer] as authorized by the FDA issued Emergency [...] Department of Pathology and Laboratory Medicine at [facility], certified under the Clinical Laboratory Improvement Amendments [...] fact sheets at the following FDA website: https://www.fda.gov/medical-devices/ihlqsvdvzwf-bcspoqr-5887-seafy-60-qwwvjsfuq- use-a lmjfanjveejsz-drgqzgc-pglwetf/sxsnn-gptxkzmsuks-epws SARS-CoV-2 Source BULK FILLER Swab [facility] Nasopharyngeal swab (specimen) 07/03/2020 1:27 PM EST 07/03/2020 2:37 PM EST Comment:Symptoms->COVID-19 S uspected Narrative Resulting Agency Comment Spec In Lab Nilam Blair MD MICROBIOLOGY - GENER AL ORDERABLES [facility] [place] [address] * (ABNORMAL) Differential, Automated (07/03/2020 12:55 PM EST) Neutrophil % 77.3 % [facility] Neutrophil Absolute 9.52(H) 1.70 - 6.10 x10(3)/mc L [facility] Lymph % 13.6 % [facility] Lymphocytes Abs 1.7 0.9 - 3.2 x10(3)/mc L [facility] Monocyte % 8.3 % [facility] Monocyte Abs 1.0(H) 0.3 - 0.9 x10(3)/mc L [facility] Eos % 0.3 % [facility] Eosinophils Abs 0.0 0.0 - 0.4 x10(3)/mc L [facility] Basophil % 0.3 % [facility] Baso Absolute 0.0 0.0 - 0.1 x10(3)/mc L [facility] Immature Gran % 0.20 % [facility] Comment: Immature granulocytes(IG's)percentage and absolute count will include metamyelocytes, myelocytes, and promyelocytes. Blood smears from CBCs yielding IG's will be scanned manually for concordance. If this scan disagrees with the automated IG or if promyelocytes are noted, a manual differential will be performed. Immature Gran Absolute 0.03 0.00 - 0.04 x10(3)/mc L [facility] Blood specimen (specimen) 07/03/2020 12:55 PM EST 07/03/2020 1:13 PM EST Narrative Resulting Agency Comment Spec In Lab Nilam Blair MD HEMATOLOGY ORDERABLE S Performing Organization Address City/[facility]/ZIP Co de Phone Number LABORATORY [address] [place] [address] * (ABNORMAL) Hemogram (07/03/2020 12:55 PM EST) White Blood Cell 12.3(H) 4.0 - 9.5 x10(3)/mc L [facility] Red Blood Cell 4.57 4.00 - 5.21 x10(6)/mc L [facility] Hemoglobin 14.2 11.7 - 15.5 gm/dL [facility] Hematocrit 43.6 35.7 - 45.8 % [facility] Mean Cell Volume 95.4(H) 82.6 - 94.4 fL [facility] Mean Cell Hemoglobin 31.1 27.1 - 32.0 pg LAB[facility]ORY Mean Cell Hemoglobin Concentration 32.6 31.7 - 35.0 gm/dL [facility] Platelet 240 145 - 357 x10(3)/mc L [facility] RDW Standard Deviation 47.8(H) 37.0 - 46.0 fL [facility] RDW coefficient of variation 13.2 11.5 - 14.1 % LAB[facility]ORY Mean Platelet Volume 9.3 7.6 - 12.9 fL [facility] Blood specimen (specimen) 07/03/2020 12:55 PM EST 07/03/2020 1:13 PM EST Narrative Resulting Agency Comment Spec In Lab Nilam Blair MD HEMATOLOGY ORDERABLE S [facility] [address] [place] [address] * Basic Metabolic Panel (non-fasting) (07/03/2020 12:55 PM EST) Glucose 104 65 - 199 mg/dL LAB[facility]ORY Comment:Diabetes: >=200 mg/d L plus symptoms Blood Urea Nitrogen 17 8 - 18 mg/dL LAB[facility] Creatinine [...] 98 - 107 mmol/L [facility] Carbon Dioxide 29 22 - 31 mmol/L [facility] Anion Gap 9 5 - 15 mmol/L [facility] Calcium 9.7 8.5 - 10.5 mg/dL [facility] Est Glomerular Filtration Rate 79 >=60 mL/min/1. 73 m?? LABORATORY Comment: [...] Blair MD CHEMISTRY ORDERABLES LABORATORY [address] [place] [address] * Prothrombin Time (07/03/2020 12:55 PM EST) Prothrombin Time 12.0 9.4 - 12.5 sec LABORATORY International Normalization Ratio 1.0 LABORATORY Comment: An INR <2.0 indicates [...] Nilam Blair MD HEMATOLOGY ORDERABLE S [facility] [employer] [facility] [address] [place] [address] * XR Ankle Min 3 views Right (Generic) (07/03/2020 12:41 PM EST) Anatomical Region Laterality Modality Ankle Right Digital Radiogra phy Impressions 07/03/2020 1:02 PM EST No acute fracture. Thank you for letting us participate in the care of this patient. For questions regarding this report, please contact the number below. ? Electronically signed by: MONTY GRIFFIN DO, [facility] ([phone]), at 07/03/2020 1:02 PM Narrative 07/03/2020 1:02 [...] below. Electronically signed by: MONTY GRIFFIN DO [facility]([phone]), at 07/03/2020 1:02 PM Nilam Blair MD [...] ? Electronically signed by: MONTY GRIFFIN DO [facility] ([phone]), at 07/03/2020 1:01 PM Narrative 07/03/2020 1:01 [...] below. Electronically signed by: MONTY GRIFFIN DO, [facility]([phone]), at 07/03/2020 1:01 PM Nilam Blair MD [...] (Given - Provid er: Evonne Evangelista RN) documented in this encounter Additional Health Concerns Infection Onset Date Last Indicated Resolved Time Rule Out COVID-19 07/03/2020 07/03/2020 07/03/2020 4:30 PM EST documented as of this encounter Care Teams Box Printing Machine Operator Relationship Specialty Start Date End Date Hoang Castellanos, SAM [address] [place] [address] PCP - General Family Medicine 03/12/20 documented as of this encounter
--- OUTSIDE RECORDS SUMMARY | 2024-08-01 18:35 | XMS_ITS | Encounter Summary ---
Author Organization [facility] [place] [address] Care Team Providers Care Retail Brand Ambassador Name Role Phone Hoang Castellanos APRN Primary Care Provider Encounter Details Date Type Department Care Team (Late st Contact Info) Description 07/04/2020 Telephone Primary Care at [facility] 10 [place] [phone] Isadora Hidalgo LPN Social History Tobacco Use [...] 07/03/20 Name and phone of Emergency Room: [place], [place] [phone] Name of Emergency Room Provider? Nilam Blair [...] 07/14 at 3:30 Jeannie requested that her case liner be part of this appointment documented in this encounter Plan of Treatment Not on file documented as of this encounter Visit Diagnoses Not on filedocumented in this encounter Care Teams Retail Brand Ambassador Relationship Specialty Start Date End Date Hoang Castellanos, EXTRUSION TECHNICIAN [address] [place] [address] PCP - General Family Medicine 03/12/20 documented as of this encounter
--- OUTSIDE RECORDS SUMMARY | 2024-08-01 18:35 | XMS_ITS | Encounter Summary ---
[place] [address] Care Team Providers Care Obgyn Hospitalist Physician Name Role Phone Hoang Castellanos APRN Primary Care Provider Encounter Details Date Type Department Care Team (Late st Contact Info) Description 07/09/2020 Telephone Primary Care at [facility] [address] [place] [phone] Isadora Hidalgo LPN Social History Tobacco Use [...] on filedocumented in this encounter Care Teams Obgyn Hospitalist Physician Relationship Specialty Start Date End Date Hoang Castellanos, SOCIAL WORKER [address] [place] [place] [address] PCP - General Family Medicine 03/12/20 documented as of this encounter
--- OUTSIDE RECORDS SUMMARY | 2024-08-01 18:35 | XMS_ITS | Encounter Summary ---
Author Organization [facility] [place] [address] Care Team Providers Care Auditing Clerk Name Role Phone Hoang Castellanos APRN Primary Care Provider Reason for Referral * Occupational Therapy (Routine) - Closed Specialty Diagnoses / Procedures Referred By Vanita t Referred To Contact Occupational Therapy Diagnoses Closed fracture of distal end of right radius, unspecified fracture morphology, sequela Talita Hernandez MD [address] [place] [address] [facility] [address] [place] [address] Referral ID Status Reason Start Date Expiration Date V isits Requested Visits Authorized [id number] Closed Evaluate and Treat 05/01/2020 05/01/2021 12 12 Reason for Visit * Reason Comments Follow-up Right wrist intra-ar ticular distal radius fracture 02/04/20 Encounter Details Date Type Department Care Team (Late st Contact Info) Description 05/01/2020 11:30 AM EDT Office Visit Orthopaedics at [facility] [address] [place] [phone] Talita Hernandez MD [address] [place] [address] Closed fracture of distal end of right [...] sequela documented in this encounter Care Teams Auditing Clerk Relationship Specialty Start Date End Date Hoang Castellanos, SAM [address] [place] [address] PCP - General Family Medicine 03/12/20 documented as of this encounter
--- OUTSIDE RECORDS SUMMARY | 2024-08-01 18:35 | XMS_ITS | Encounter Summary ---
[place] [address] Care Team Providers Care Solar Installation Supervisor Name Role Phone Hoang Castellanos APRN Primary Care Provider Encounter Details Date Type Department Care Team (Late st Contact Info) Description 07/07/2020 Telephone Primary Care at [facility] 10 [place] [phone] Isadora Hidalgo LPN Social History Tobacco Use [...] filedocumented in this encounter Care Teams Solar Installation Supervisor Relationship Specialty Start Date End Date Hoang Castellanos, HOME SUPERVISOR [address] [place] [address] PCP - General Family Medicine 03/12/20 documented as of this encounter
--- OUTSIDE RECORDS SUMMARY | 2024-08-01 18:35 | XMS_ITS | Encounter Summary ---
[place] [address] Care Team Providers Care Wired Sweatband Cutter Name Role Phone Hoang Castellanos APRN Primary Care Provider Reason for Visit * Reason Onset Date Comments Medication Refill 05/30/2020 Medication Refill 06/03/2020 Encounter Details Date Type Department Care Team (Late st Contact Info) Description 05/30/2020 Refill Primary Care at [facility] [place] [phone] Isadora Hidalgo LPN Social History Tobacco Use [...] on filedocumented in this encounter Care Teams Wired Sweatband Cutter Relationship Specialty Start Date End Date Hoang Castellanos APRN [address] [place] [address] PCP - General Family Medicine 03/12/20 documented as of this encounter
--- OUTSIDE RECORDS SUMMARY | 2024-08-01 18:35 | XMS_ITS | Encounter Summary ---
Author Organization [facility] [place] [address] Care Team Providers Care Asset Protection Representative Name Role Phone Hoang Castellanos APRN Primary Care Provider Encounter Details Date Type Department Care Team (Late st Contact Info) Description 04/03/2020 - 04/03/2020 1:17 PM EDT Emergency Emergency Services at [address] [address] Discharge Disposition: Home Social History [...] 1 Dose by mouth 2 times daily. ibuprofen (Advil;Motrin) 800 mg TabletIndications:Oncology Navigator randell right-sided low back pain without sciatica [...] 6 hours as needed for Indigestion. 11/26/2021 azithromycin (Zithromax) 250 mg Tablet Day 1: [...] documented as of this encounter Care Teams Asset Protection Representative Relationship Specialty Start Date End Date Hoang Castellanos, SAM [address] [place] [address] PCP - General Family Medicine 03/12/20 documented as of this encounter
--- OUTSIDE RECORDS SUMMARY | 2024-08-01 18:35 | XMS_ITS | Encounter Summary ---
Author Organization [facility] [place] [address] Care Team Providers Care Jacquard Loom Carpet Weaver Name Role Phone Hoang Castellanos APRN Primary Care Provider Reason for Visit * Reason Comments Medication Refill Encounter Details Date Type Department Care Team (Late st Contact Info) Description 09/30/2020 Refill Primary Care at [facility] 10 [place] [phone] Hoang Castellanos APRN [facility] [place] [address] Gastroesophageal reflux disease Social History Tobacco Use [...] Future Appt: Visit date not found Pharmacy: [facility] Last rx: 10/29/2019: 56 tablets/capsules, 11 refills documented in this encounter Plan of Treatment Not on file documented as of this encounter Visit Diagnoses Diagnosis Gastroesophageal reflux disease Esophageal reflux documented in this encounter Care Teams Jacquard Loom Carpet Weaver Relationship Specialty Start Date End Date Hoang Castellanos, TRANSMISSION SYSTEM OPERATOR [address] [place] [address] PCP - General Family Medicine 03/12/20 documented as of this encounter
--- OUTSIDE RECORDS SUMMARY | 2024-08-01 18:35 | XMS_ITS | Encounter Summary ---
Author Organization [facility] [address] Care Team Providers Care Customs Appraiser Name Role Phone Hoang Castellanos APRN Primary Care Provider Encounter Details Date Type Department Care Team (Late st Contact Info) Description 04/22/2020 Orders Only Orthopaedics at [facility] 10 [place] [address] Talita Hernandez MD [address] [place] [address] Closed fracture of distal end of right [...] please contact the number below. ? Narrative 05/01/2020 11:13 AM EDT EXAMINATION: XR [...] sequela documented in this encounter Care Teams Customs Appraiser Relationship Specialty Start Date End Date Hoang Castellanos, ASE MASTER MECHANIC [address] [place] [address] PCP - General Family Medicine 03/12/20 documented as of this encounter
--- OUTSIDE RECORDS SUMMARY | 2024-08-01 18:35 | XMS_ITS | Encounter Summary ---
[place] [address] Care Team Providers Care Floor Covering Layer Name Role Phone Hoang Castellanos APRN Primary Care Provider Encounter Details Date Type Department Care Team (Latest Contact Info) Description 04/07/2020 8:00 AM EDT Ancillary Procedure [facility] [place] [address] Talita Hernandez MD [address] [facility] [facility] [place] [address] Closed fracture of distal end of right [...] ? Electronically signed by: Bandar Tejeda MD, [facility] ([phone]), at 04/07/2020 8:21 AM Narrative 04/07/2020 8:21 [...] sequela documented in this encounter Care Teams Floor Covering Layer Relationship Specialty Start Date End Date Hoang Castellanos, PROMOTIONS PRODUCER [address] [place] [address] PCP - General Family Medicine 03/12/20 documented as of this encounter
--- OUTSIDE RECORDS SUMMARY | 2024-08-01 18:35 | XMS_ITS | Encounter Summary ---
Author Organization [facility] Address [facility] [place] [address] Care Team Providers Care Camera Machinist Name Role Phone Hoang Castellanos APRN Primary Care Provider Reason for Referral * Consultation (Routine) - Closed Specialty Diagnoses / Procedures Referred By Contac t Referred To Contact Cardiology Diagnoses Coronary artery disease involving [place] coronary artery of [place] heart without angina pectoris CAD - Coronary artery disease involving [place] coronary artery of [place] heart without angina pectoris *[facility] Hoang Castellanos APRN [address] [place] [address] Freddy Mejias MD [facility] [place] [address] Referral ID Status Reason Start Date Expiration Date V isits Requested Visits Authorized [id number] Closed Consult, Test & Treat 07/16/2020 07/16/2021 6 6 * Diagnostic Test (Routine) - Closed Specialty Diagnoses / Procedures Referred By Contac t Referred To Contact Radiology Diagnoses Dizziness Procedures MRI Brain wwo Contrast (Generic) Hoang Castellanos APRN [address] [place] [address] [facility] [address] [place] [address] Referral ID Status Reason Start Date Expiration Date V isits Requested Visits Authorized [id number] Closed Specialty Service Requested 07/14/2020 01/12/2022 1 1 Reason for Visit * Reason Comments Follow-up ER Visit Encounter Details Date Type Department Care Team (Latest Contact Info) Description 07/14/2020 3:30 PM EST TH Visit (TeleHealth) Primary Care at [address] [address] Hoang Castellanos APRN [address] [facility] [place] [address] Dizziness; Sprain of right ankle, unspecified ligament, subsequent encounter; Generalized weakness; Benign essential hypertension; Coronary artery disease involving [place] coronary artery of [place] heart without angina pectoris Social History Tobacco [...] - 07/14/2020 3:30 PM EST [facility] Telehealth Encounter Nurse Call: Patient called to [...] room visit. Jeannie Rico was seen at [facility] emergency room on 07/03/2020 for Right ankle [...] Benign essential hypertension Coronary artery disease involving [place] coronary artery of [place] heart without angina pectoris - Referral to [...] Routine Coronary artery disease involving [place] coronary artery of [place] heart without angina pectoris Ordered: 07/16/2020 documented [...] ? Electronically signed by: Yannick Solis MD, [facility] ([phone]), at 09/16/2020 1:32 PM Narrative 09/16/2020 1:32 [...] Essential hypertension, benign Coronary artery disease involving [place] coronary artery of [place] heart without angina pectoris Dizziness Dizziness and giddiness documented in this encounter Care Teams Camera Machinist Relationship Specialty Start Date End Date Hoang Castellanos APRN [address] [place] [address] PCP - General Family Medicine 03/12/20 documented as of this encounter
--- OUTSIDE RECORDS SUMMARY | 2024-08-01 18:35 | XMS_ITS | Encounter Summary ---
Author Organization [facility] [place] [address] Care Team Providers Care Product Demonstrator Name Role Phone Hoang Castellanos APRN Primary Care Provider Encounter Details Date Type Department Care Team (Late st Contact Info) Description 07/03/2020 12:25 PM EST Ancillary Procedure Radiology Xray at [facility] [place] [address] Social History Tobacco Use Types [...] filedocumented in this encounter Care Teams Product Demonstrator Relationship Specialty Start Date End Date Hoang Castellanos APRN [address] [place] [address] PCP - General Family Medicine 03/12/20 documented as of this encounter
--- OUTSIDE RECORDS SUMMARY | 2024-08-01 18:35 | XMS_ITS | Encounter Summary ---
Author Organization [facility] Address [facility] [place] [address] Care Team Providers Care Messaging Architect Name Role Phone Hoang Castellanos APRN Primary Care Provider Reason for Referral * Home Health Care (Routine) - Closed Specialty Diagnoses / Procedures Referred By Contdavide t Referred To Contact Home Health Agency Diagnoses Essential hypertension Hoang Castellanos APRN [address] [place] [address] Visiting Nurse, [facility] [address] [address] Referral ID Status Reason Start Date Expiration Date V isits Requested Visits Authorized [id number] Closed Continuity of Care 10/08/2020 04/06/2021 1 1 Encounter Details Date Type Department Care Team (Late st Contact Info) Description 10/08/2020 Telephone Primary Care at [facility] [address] [facility] [place] [phone] Hoang Castellanos APRN [address] [facility] [address] [address] [facility] [address] FAMILY SNEED [place], [place] [id number] Social History Tobacco Use Types Packs/Day Years [...] She would like a referral to the [facility] for blood pressure checks documented in this encounter Plan of Treatment Scheduled Referrals Name Type Priority Associated Diagnoses Orde r Schedule Referral to Home Health - Clinic Use Outpatient Referral Routine Essential hypertension Ordered: 10/08/2020 documented as of this encounter Visit Diagnoses Diagnosis Essential hypertension Unspecified essential hypertension documented in this encounter Care Teams Messaging Architect Relationship Specialty Start Date End Date Hoang Castellanos, PLATE GRAINER APPRENTICE [address] [place] [address] PCP - General Family Medicine 03/12/20 documented as of this encounter
--- OUTSIDE RECORDS SUMMARY | 2024-08-01 18:35 | XMS_ITS | Encounter Summary ---
[place] [address] Care Team Providers Care Records Associate Name Role Phone Hoang Castellanos APRN Primary Care Provider Encounter Details Date Type Department Care Team (Late st Contact Info) Description 07/16/2020 Telephone Primary Care at [facility] 10 [place] [phone] Isadora Hidalgo LPN Social History Tobacco Use [...] on filedocumented in this encounter Care Teams Records Associate Relationship Specialty Start Date End Date Hoang Castellanos APRN [address] [place] [address] PCP - General Family Medicine 03/12/20 documented as of this encounter
--- OUTSIDE RECORDS SUMMARY | 2024-08-01 18:35 | XMS_ITS | Encounter Summary ---
[place] [address] Care Team Providers Care Asset Coordinator Name Role Phone Hoang Castellanos APRN Primary Care Provider Reason for Visit * Reason Onset Date Comments Medication Refill 04/22/2020 Medication Refill 04/28/2020 Encounter Details Date Type Department Care Team (Late st Contact Info) Description 04/22/2020 Refill Primary Care at [facility] [place] [phone] Isadora Hidalgo LPN B12 deficiency Social History [...] 2:19 PM EDT Received a fax from [facility] Requesting Rx for aspirin metoprolol vitamin B12, vitamin D3 This prescription got send to [facility] clarify with patient she uses [facility] for all her medications only time she uses [facility] is if she needs antibiotics. documented in this encounter Plan of Treatment Not on file documented as of this encounter Visit Diagnoses Diagnosis B12 deficiency Other B-complex deficiencies documented in this encounter Care Teams Asset Coordinator Relationship Specialty Start Date End Date Hoang Castellanos, CLICKING MACHINE OPERATOR [address] [place] [place] [address] PCP - General Family Medicine 03/12/20 documented as of this encounter
--- OUTSIDE RECORDS SUMMARY | 2024-08-01 18:35 | XMS_ITS | Encounter Summary ---
Author Organization [facility] Address [facility] [place] [address] Care Team Providers Care Food Service Worker Hospital Name Role Phone Hoang Castellanos APRN Primary Care Provider Reason for Referral * Home Health Care (Routine) - Closed Specialty Diagnoses / Procedures Referred By Contac t Referred To Contact Home Health Agency Diagnoses Benign essential hypertension Generalized weakness Hoang Castellanos APRN [address] [place] [address] Visiting Nurse, [facility] & [address] [address] Referral ID Status Reason Start Date Expiration Date V isits Requested Visits Authorized [id number] Closed Continuity of Care 07/07/2020 01/03/2021 1 1 Reason for Visit * Reason Onset Date Comments Triage 07/07/2020 Encounter Details Date Type Department Care Team ([facility] Contact Info) Description 07/07/2020 Telephone Primary Care at [facility] 10 [place] [address] Jeannie Luciano, video game maker Social History Tobacco Use Types Packs/Day Years [...] telehealth she has one tomorrow with her case maker and wants RA to be part of [...] had taken her medications for the day. Hoang Castellanos, CABLE TV INSTALLER to [facility] Primary Care Nurse ?? 07/07/20 9:29 AM [...] AM EST Pt called through triage because [facility] made a visit with her [...] fatigue documented in this encounter Care Teams Food Service Worker Hospital Relationship Specialty Start Date End Date Hoang Castellanos, SAM [address] [place] [address] PCP - General Family Medicine 03/12/20 documented as of this encounter
--- OUTSIDE RECORDS SUMMARY | 2024-08-01 18:35 | XMS_ITS | Encounter Summary ---
Author Organization [facility] [place] [address] Care Team Providers Care Landscape Designer Name Role Phone Hoang Castellanos APRN Primary Care Provider Reason for Visit * Reason Onset Date Comments Medication Refill 07/16/2020 Encounter Details Date Type Department Care Team (Late st Contact Info) Description 07/16/2020 Refill Primary Care at [facility] 10 [facility] [place] [phone] Isadora Hidalgo LPN Social History Tobacco Use [...] on filedocumented in this encounter Care Teams Landscape Designer Relationship Specialty Start Date End Date Hoang Castellanos, SAM [address] [place] [address] PCP - General Family Medicine 03/12/20 documented as of this encounter
--- OUTSIDE RECORDS SUMMARY | 2024-08-01 18:35 | XMS_ITS | Encounter Summary ---
Author Organization [facility] [place] [address] Care Team Providers Care Poultry Dresser Name Role Phone Hoang Castellanos APRN Primary Care Provider Reason for Referral * Diagnostic Test (Routine) - Closed Specialty Diagnoses / Procedures Referred By Contac t Referred To Contact Radiology Diagnoses Dizziness Procedures MRI Brain wwo Contrast (Generic) Hoang Castellanos APRN [address] [place] [address] [facility] 10 [place] [address] Referral ID Status Reason Start Date Expiration Date V isits Requested Visits Authorized [id number] Closed Specialty Service Requested 07/14/2020 01/12/2022 1 1 Reason for Visit * Diagnostic Test (Routine) - Closed Specialty Diagnoses / Procedures Referred By Contac t Referred To Contact Radiology Diagnoses Dizziness Procedures MRI Brain wwo Contrast (Generic) Hoang Castellanos APRN [address] [place] [address] [facility] 10 [place] [address] Referral ID Status Reason Start Date Expiration Date V isits Requested Visits Authorized [id number] Closed Specialty Service Requested 07/14/2020 01/12/2022 1 1 Encounter Details Date Type Department Care Team (Latest Contact Info) Description 09/16/2020 12:12 PM EST - 09/16/2020 11:59 PM EST Hospital Encounter Radiology MRI at [facility] [address] [place] [address] Hoang Castellanos, TUBE TELLER [address] [place] [address] Dizziness Discharge Disposition: Home Social History Tobacco [...] 1 Dose by mouth 2 times daily. lisinopriL (Prinivil;Zestril) 40 mg TabletIndications:Augie gn essential [...] 1 06/02/2020 12/01/2021 ibuprofen (Advil;Motrin) 800 mg TabletIndications:Operations Intern randell right-sided low back pain without sciatica [...] mLs documented in this encounter Care Teams Poultry Dresser Relationship Specialty Start Date End Date Hoang Castellanos, TUBE TELLER [address] [place] [address] PCP - General Family Medicine 03/12/20 documented as of this encounter
--- OUTSIDE RECORDS SUMMARY | 2024-08-01 18:35 | XMS_ITS | Encounter Summary ---
Author Organization [facility] [place] [address] Care Team Providers Care Tram Operator Name Role Phone Hoang Castellanos APRN Primary Care Provider [phone] Reason for Visit * Reason Onset Date Comments Medication Refill 08/12/2020 Encounter Details Date Type Department Care Team (Late st Contact Info) Description 08/12/2020 Refill Primary Care at [facility] 10 [place] [phone] Hoang Castellanos APRN [address] [place] [place] [address] Social History Tobacco Use Types Packs/Day Years [...] PM EST Request received via fax from [facility] for meloxicam Last Prescription Fill Date: [...] on filedocumented in this encounter Care Teams Tram Operator Relationship Specialty Start Date End Date Hoang Castellanos, LAMINATION INSPECTOR [address] [place] [address] PCP - General Family Medicine 03/12/20 documented as of this encounter
--- OUTSIDE RECORDS SUMMARY | 2024-08-01 18:35 | XMS_ITS | Encounter Summary ---
[place] [address] Care Team Providers Care Stock Clipper Name Role Phone Hoang Castellanos APRN Primary Care Provider [phone] Encounter Details Date Type Department Care Team (Latest Contact Info) Description 05/01/2020 11:15 AM EDT Ancillary Procedure Radiology XRay at the [facility] at [facility] 10 [facility] [place] [address] Talita Hernandez MD [address] [facility] [address] [place] [address] Closed fracture of distal end of right [...] signed by: Odell Monsalve MD, [facility] ([phone]), at 05/01/2020 11:13 AM Narrative 05/01/2020 11:13 [...] sequela documented in this encounter Care Teams Stock Clipper Relationship Specialty Start Date End Date Hoang Castellanos, HYDRAULIC BARKER OPERATOR [address] [place] [address] PCP - General Family Medicine 03/12/20 documented as of this encounter
--- OUTSIDE RECORDS SUMMARY | 2024-08-01 18:35 | XMS_ITS | Encounter Summary ---
Author Organization [facility] [place] [address] Care Team Providers Care Juvenile Correctional Officer Name Role Phone Hoang Castellanos APRN Primary Care Provider Reason for Visit * Reason Onset Date Comments Medication Refill 05/09/2020 Encounter Details Date Type Department Care Team (Late st Contact Info) Description 05/09/2020 Refill Primary Care at [facility] [place] [phone] Isadora Hidalgo LPN Social History Tobacco Use [...] on filedocumented in this encounter Care Teams Juvenile Correctional Officer Relationship Specialty Start Date End Date Hoang Castellanos APRN [address] [place] [address] PCP - General Family Medicine 03/12/20 documented as of this encounter
--- OUTSIDE RECORDS SUMMARY | 2024-08-01 18:35 | XMS_ITS | Encounter Summary ---
Author Organization [facility] [place] [address] Care Team Providers Care Airport Engineer Name Role Phone Hoang Castellanos APRN Primary Care Provider Encounter Details Date Type Department Care Team (Late st Contact Info) Description 10/07/2020 Telephone Primary Care at [facility] 10 [place] [phone] Shannon Cruz, RN Social History Tobacco Use [...] on filedocumented in this encounter Care Teams Airport Engineer Relationship Specialty Start Date End Date Hoang Castellanos APRN [address] [place] [address] PCP - General Family Medicine 03/12/20 documented as of this encounter
--- OUTSIDE RECORDS SUMMARY | 2024-08-01 18:35 | XMS_ITS | Encounter Summary ---
Author Organization [facility] [place] [address] Care Team Providers Care Press Maintainer Name Role Phone Hoang Castellanos APRN Primary Care Provider Reason for Visit * Reason Onset Date Comments Medication Refill 04/15/2020 Encounter Details Date Type Department Care Team (Late st Contact Info) Description 04/15/2020 Refill Primary Care at [facility] [address] [facility] [place] [phone] Isadora Hidalgo LPN B12 deficiency Social History [...] deficiencies documented in this encounter Care Teams Press Maintainer Relationship Specialty Start Date End Date Hoang Castellanos, OCCUPATIONAL HEALTH AND SAFETY ADVISER [address] [place] [address] PCP - General Family Medicine 03/12/20 documented as of this encounter
--- OUTSIDE RECORDS SUMMARY | 2024-08-01 18:35 | XMS_ITS | Encounter Summary ---
Author Organization [facility] [place] [address] Care Team Providers Care Rough Patcher Name Role Phone Hoang Castellanos APRN Primary Care Provider Encounter Details Date Type Department Care Team (Late st Contact Info) Description 07/03/2020 12:30 PM EST Ancillary Procedure Radiology Xray at [facility] [place] [address] Social History Tobacco Use Types [...] on filedocumented in this encounter Care Teams Rough Patcher Relationship Specialty Start Date End Date Hoang Castellanos APRN [address] [place] [address] PCP - General Family Medicine 03/12/20 documented as of this encounter
--- OUTSIDE RECORDS SUMMARY | 2024-08-01 18:35 | XMS_ITS | Encounter Summary ---
[place] [address] Care Team Providers Care Store Standards Associate Name Role Phone Hoang Castellanos APRN Primary Care Provider Encounter Details Date Type Department Care Team (Late st Contact Info) Description 09/16/2020 Telephone Primary Care at [facility] [address] [place] [phone] Shannon Cruz RN Social History Tobacco Use [...] 4:28 PM EST ----- Message from Hoang Castellanos APRN sent at 09/16/2020 2:17 PM EST ----- Please inform patient of normal mri results. documented in this encounter Plan of Treatment Not on file documented as of this encounter Visit Diagnoses Not on filedocumented in this encounter Care Teams Store Standards Associate Relationship Specialty Start Date End Date Hoang Castellanos, ASM [address] [place] [address] PCP - General Family Medicine 03/12/20 documented as of this encounter
--- OUTSIDE RECORDS SUMMARY | 2024-08-01 18:35 | XMS_ITS | Encounter Summary ---
[place] [address] Care Team Providers Care Dogger Name Role Phone Hoang Castellanos APRN Primary Care Provider Encounter Details Date Type Department Care Team (Late st Contact Info) Description 04/03/2020 Telephone Primary Care at [facility] [place] [phone] Isadora Hidalgo LPN Social History Tobacco Use [...] the test results. If you have a [facility] account, you can see your results as [...] your hands with an alcohol- based hand real estate site analyst that contains at least 60% alcohol, covering [...] provided on the website below by the [place] Department of Health and Human services regarding self quarantine. If you reside in a state other than [place], please review your state's specific self-quarantine instructions. https://www.[facility].[place].gov/dphs/cdcs/documents/skiw-ofxxujharu-havfb.pdf * Telephone Encounter - Isadora Hidalgo LPN [...] documented as of this encounter Care Teams Dogger Relationship Specialty Start Date End Date Hoang Castellanos APRN [address] [place] [address] PCP - General Family Medicine 03/12/20 documented as of this encounter
--- OUTSIDE RECORDS SUMMARY | 2024-08-01 18:35 | XMS_ITS | Encounter Summary ---
Author Organization [facility] [place] [address] Care Team Providers Care Bottling Line Operator Name Role Phone Hoang Castellanos APRN Primary Care Provider Reason for Visit * Reason Onset Date Comments Other 10/07/2020 Encounter Details Date Type Department Care Team (Late st Contact Info) Description 10/07/2020 Telephone Cardiology at [address] [phone] Devi Thomson, RN Other Social History Tobacco [...] on filedocumented in this encounter Care Teams Bottling Line Operator Relationship Specialty Start Date End Date Hoang Castellanos, SAM [address] [place] [address] PCP - General Family Medicine 03/12/20 documented as of this encounter
--- OUTSIDE RECORDS SUMMARY | 2024-08-01 18:35 | XMS_ITS | Encounter Summary ---
Author Organization [facility] [place] [address] Care Team Providers Care Rn Document Improvement Name Role Phone Hoang Castellanos APRN Primary Care Provider Reason for Visit * Reason Comments Follow Up Fracture RIGHT distal radius fx 02/04/20 Encounter Details Date Type Department Care Team (Late st Contact Info) Description 04/11/2020 8:30 AM EDT Office Visit Orthopaedics at [facility] [place] [address] Closed fracture of distal end of right [...] 90 tablet 3 ??? Miscellaneous Medical Supply [facility] [...] sequela documented in this encounter Care Teams Rn Document Improvement Relationship Specialty Start Date End Date Hoagn Castellanos, GEOPHYSICAL COMPUTER [address] [place] [address] PCP - General Family Medicine 03/12/20 documented as of this encounter
--- OUTSIDE RECORDS SUMMARY | 2024-08-01 18:35 | XMS_ITS | Encounter Summary ---
[place] [address] Care Team Providers Care Coil Placer Name Role Phone Hoang Castellanos APRN Primary Care Provider [phone] Reason for Visit * Reason Onset Date Comments Appointment 05/07/2020 Encounter Details Date Type Department Care Team (Late st Contact Info) Description 05/07/2020 Telephone [place] [phone] Caridad Moon Appointment Social History Tobacco Use [...] 05/07/2020 9:10 AM EDT Call Center / [facility] Message - General Issue Call Provider patient sees in Clinic: none, new patient Caller and relationship (if other than patient-full name): self Call back number: [phone] Ok to leave a message: yes Reason for call: Patient is calling to reschedule the new patient appointment with Dr Michael Rosas.Patient is requesting a call back to see if this appointment can be a TOV. Please call patient to discuss further. Disposition of Call (choose one and remove others): ??? Routine message sent to [facility]: yes documented in this encounter Plan of Treatment Not on file documented as of this encounter Visit Diagnoses Not on filedocumented in this encounter Care Teams Coil Placer Relationship Specialty Start Date End Date Hoang Castellanos, TRUSTEE OF ESTATE [address] [place] [address] PCP - General Family Medicine 03/12/20 documented as of this encounter
--- OUTSIDE RECORDS SUMMARY | 2024-08-01 18:35 | XMS_ITS | Encounter Summary ---
[place] [address] Care Team Providers Care Cps Team Lead Name Role Phone Hoang Castellanos APRN Primary Care Provider [phone] Reason for Visit * Reason Onset Date Comments Fall 07/03/2020 Ankle Injury 07/03/2020 Encounter Details Date Type Department Care Team (Late st Contact Info) Description 07/03/2020 Telephone Primary Care at [facility] [place] [phone] Minerva Calderón RN Fall; Ankle Injury Social [...] report Jeannie fell at [facility] home in [place] last night, injured ankle, unable to bear weight. They would like to avoid calling 911 but need ambulance transport to get Jeannie to ED. They called her [employer] housing case manager who advised to call PCP office. Advised may try to reach [facility] directly, if unable, call 911 for transport to ED. [facility] verbalized understanding and agreement. documented in this encounter Plan of Treatment Not on file documented as of this encounter Visit Diagnoses Not on filedocumented in this encounter Care Teams Cps Team Lead Relationship Specialty Start Date End Date Hoang Castellanos, LAUNDRY SUPERVISOR [address] [place] [address] PCP - General Family Medicine 03/12/20 documented as of this encounter
--- OUTSIDE RECORDS SUMMARY | 2024-08-01 18:35 | XMS_ITS | Encounter Summary ---
[place] [address] Care Team Providers Care Alley Worker Name Role Phone Hoang Castellanos APRN Primary Care Provider Encounter Details Date Type Department Care Team (Late st Contact Info) Description 08/28/2020 Telephone Primary Care at [facility] [address] [place] [phone] Shannon Chung, RN Social History Tobacco Use [...] 3:21 PM EST CROW Alatorre called from [facility] in regards to Jeannie Renny Rico. Update: visiting nurses called in vitals. 08/28/20: BP 156/88, HR 55 08/22/20: BP 164/93 BP Readings from Last 3 Encounters: 07/14/20 150/80 07/03/20 139/65 04/03/20 125/69 documented in this encounter Plan of Treatment Not on file documented as of this encounter Visit Diagnoses Diagnosis Benign essential hypertension Essential hypertension, benign documented in this encounter Care Teams Alley Worker Relationship Specialty Start Date End Date Hoang Castellanos APRN [address] [place] [address] PCP - General Family Medicine 03/12/20 documented as of this encounter
--- OUTSIDE RECORDS SUMMARY | 2024-08-01 18:35 | XMS_ITS | Encounter Summary ---
[place] [address] Care Team Providers Care Patternmaker Plaster And Plastic Name Role Phone Hoang Castellanos APRN Primary Care Provider Reason for Referral * Diagnostic Test (Routine) - Closed Specialty Diagnoses / Procedures Referred By Contac t Referred To Contact Diagnoses Coronary artery disease involving [place] coronary artery of [place] heart without angina pectoris Repeated falls Procedures Ziopatch 48 Hrs-15 Days Dustin Haynes [facility] [place] [address] Referral ID Status Reason Start Date Expiration Date V isits Requested Visits Authorized [id number] Closed Specialty Service Requested 10/01/2020 10/01/2021 1 1 * Diagnostic Test (Routine) - Closed Specialty Diagnoses / Procedures Referred By Contac t Referred To Contact Cardiology Diagnoses Coronary artery disease involving [place] coronary artery of [place] heart without angina pectoris Procedures Echocardiogram Transthoracic([facility] or [facility]) Dustin Haynes [facility] [place] [address] [facility] [place] [address] Referral ID Status Reason Start Date Expiration Date V isits Requested Visits Authorized [id number] Closed Specialty Service Requested 10/01/2020 10/01/2021 1 1 Reason for Visit * Consultation (Routine) - Closed Specialty Diagnoses / Procedures Referred By Contac t Referred To Contact Cardiology Diagnoses Coronary artery disease involving [place] coronary artery of [place] heart without angina pectoris CAD - Coronary artery disease involving [place] coronary artery of [place] heart without angina pectoris *BETTYE oHang Castellanos, AIRPORT TOWER CONTROLLER [address] [place] [address] Freddy Mejias MD [facility] [place] [address] Referral ID Status Reason Start Date Expiration Date V isits Requested Visits Authorized [id number] Closed Consult, Test & Treat 07/16/2020 07/16/2021 6 6 Encounter Details Date Type Department Care Team (Late st Contact Info) Description 10/01/2020 3:00 PM EST TH Visit (TeleHealth) Cardiology at [address] [phone] Benito Reed MD [facility] [place] [address] Dustin Haynes DO Coronary artery disease involving ch[place] coronary artery of [place] heart without angina pectoris; Repeated falls Social [...] of this encounter Progress Notes * Dustin Haynes DO - 10/01/2020 3:00 PM EST Images from the original note were not included. [facility] [place] [address] CARDIOLOGY OUTPATIENT TELEHEALTH NOTE PRIMARY CARE PROVIDER: Hoang Castellanos APRN REFERRING PROVIDER: Hoang Castellanos This was a Telehealth visit Subjective: Patient ID: Jeannie Rico is a 60 y.o. 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 HPI Jeannie is a 60 yo female who [...] RS Psychiatry ??? Osteoporosis DEXA done at [facility] on 10/29/15: osteoporosis at the left [...] 90 tablet 3 ??? Miscellaneous Medical Supply [facility] 1 walker on wheels with seat 1 [...] week. 36 tablet3 ??? lancets 30 gauge [facility] 1 each by [facility].(Non-Drug; Combo Route) route daily. 100 each 3 [...] SOCIAL HISTORY: , no children. Lives in [place]. Occupation: On Disability. Smoking: Active smoker, 1-2ppd, [...] of type II DM Dustin Haynes DO Pediatric Associate; PGY-5 10/01/2020 Cardiology Attending Attestation: 60 y.o. [...] to the recommendations above. Benito Reed MD [place] [phone] (office); Pager #[phone] Email: [email or web address] documented in this encounter Plan of Treatment Not on file documented as of this encounter Results * ECHO COMPLETE W CONTRAST (01/07/2021 1:27 PM EDT) EF 65 HEARTLAB SYSTEM Anatomical Region Laterality Modality Other 01/07/2021 Narrative 01/07/2021 1:36 PM EDT Procedure: ?Transthoracic Echocardiogram Patient: ?CARBANGIE JEANNIE L ? (Age): 1960(60y) Med Rec#: ? [id number] ?Sex: ?F ? Site Loc: ? [facility] ?Ht / Wt: ??163(cm)/99(kg) Pt. Loc: ?Echo Lab ?BSA: ?2.03 Study Date: ?? 01/07/2021 ?Pt. Type: Outpatient Tape: ? Referring: LAURA Reading: Freddy Mejias ([id number]) Radiation Control Health Physicist: Saranya Mosnon Perioperative Manager: Zackary Feldman Diagnosis: *Atherosclerotic heart disease of ch[place] coronary artery without angina pectoris (I25.10) BP: [...] Vmax ?0.56 ? m/sec ? MV deceleration viau546.41 ? msec ? MV A-wave Vmax ?0.81 [...] ? Mid-Inferior ?Normal ? Mid-Inferoseptal ?Normal ? [place]-Septal ? Normal ? [place]-Anterior ? Normal ? [place]-Lateral ?Normal ? [place]-Inferior ? Normal ? [place]-Tip ?Normal ? This report has been electronically signed by: Freddy Mejias MD ? 01/07/2021 13:36:15 Images reviewed and interpretation verified [facility] Cardiac Ultrasound Laboratory Procedure Note Freddy Mejias MD - 01/07/2021 Procedure: Transthoracic Echocardiogram Patient: APOLINAR Lawson DOB(Age): 1960(60y) Med Rec#: [id number] Sex: F Site Loc: [facility] Ht / Wt: 163(cm)/99(kg) Pt. Loc: Echo Lab BSA: 2.03 Study Date: 01/07/2021 Pt. Type: Outpatient Tape: Referring: LAURA Reading: Freddy Mejias ([id number]) Radiation Control Health Physicist: Saranya Monson Perioperative Manager: Zackary Feldman Diagnosis: *Atherosclerotic heart disease of [place] coronary artery without angina pectoris (I25.10) BP: [...] MV E-wave Vmax 0.56 m/sec MV deceleration zqwh289.41 msec MV A-wave Vmax 0.81 m/sec MV [...] Normal Mid-Posterolateral Normal Mid-Inferior Normal Mid-Inferoseptal Normal [place]-Septal Normal [place]-Anterior Normal [place]-Lateral Normal [place]-Inferior Normal [place]-Tip Normal This report has been electronically signed by: Freddy Mejias MD 01/07/2021 13:36:15 Images reviewed and interpretation verified [facility] Cardiac Ultrasound Laboratory Benito Reed MD ECHO ORDERABLES * Ziopatch 48 Hrs-15 Days (10/09/2020 8:29 AM EDT) Anatomical Region Laterality Modality Other Narrative 11/07/2020 2:39 PM EDT [facility] ? Zio Patch? Ambulatory Cardiac Event [...] 3) No sustained arrhythmias. Chance Moya MD S Cardiac Electrophysiology 11/07/2020 2:38 PM Benito Reed MD CARDIAC SERVICE S ORDERABLES documented in this encounter Visit Diagnoses Diagnosis Coronary artery disease involving [place] coronary artery of [place] heart without angina pectoris Repeated falls Other symptoms involving nervous and musculoskeletal systems Coronary artery disease involving [place] coronary artery of [place] heart without angina pectoris Repeated falls Other symptoms involving nervous and musculoskeletal systems Coronary artery disease involving [place] coronary artery of [place] heart without angina pectoris documented in this encounter Care Teams Patternmaker Plaster And Plastic Relationship Specialty Start Date End Date Hoang Castellanos, AIRPORT TOWER CONTROLLER [address] [place] [address] PCP - General Family Medicine 03/12/20 documented as of this encounter
--- OUTSIDE RECORDS SUMMARY | 2024-08-01 18:35 | XMS_ITS | Encounter Summary ---
[place] [address] Care Team Providers Care Cnc Supervisor Name Role Phone Hoang Castellanos APRN Primary Care Provider Encounter Details Date Type Department Care Team (Late st Contact Info) Description 04/08/2020 Telephone Orthopaedics at [facility] [place] [address] Irasema Chairez, RN Social History Tobacco Use [...] on filedocumented in this encounter Care Teams Cnc Supervisor Relationship Specialty Start Date End Date Hoang Castellanos, SAM [address] [place] [address] PCP - General Family Medicine 03/12/20 documented as of this encounter
--- OUTSIDE RECORDS SUMMARY | 2024-08-01 18:35 | XMS_ITS | Encounter Summary ---
Author Organization [facility] [place] [address] Care Team Providers Care Tractor Engine Mechanic Name Role Phone Hoang Castellanos APRN Primary Care Provider Encounter Details Date Type Department Care Team (Late st Contact Info) Description 07/14/2020 Orders [place] [address] Chidi Dow MD [facility] [place] [address] Social History Tobacco Use Types Packs/Day Years [...] on filedocumented in this encounter Care Teams Tractor Engine Mechanic Relationship Specialty Start Date End Date Hoang Castellanos APRN [address] [place] [address] PCP - General Family Medicine 03/12/20 documented as of this encounter
--- OUTSIDE RECORDS SUMMARY | 2024-08-01 18:35 | XMS_ITS | Encounter Summary ---
[place] [address] Care Team Providers Care Sewing Machine Assembler Name Role Phone Hoang Castellanos APRN Primary Care Provider Encounter Details Date Type Department Care Team (Late st Contact Info) Description 07/15/2020 Telephone Primary Care at [facility] [address] [place] [phone] Isadora Hidalgo LPN Social History Tobacco Use [...] LPN - 07/15/2020 9:58 AM EST 07/14 [facility] called to report b/p for 07/09 140/80 07/11 136/70 07/14 154/80 documented in this encounter Plan of Treatment Not on file documented as of this encounter Visit Diagnoses Not on filedocumented in this encounter Care Teams Sewing Machine Assembler Relationship Specialty Start Date End Date Hoang Castellanos, RESEARCH GENETICIST [address] [place] [address] PCP - General Family Medicine 03/12/20 documented as of this encounter
--- OUTSIDE RECORDS SUMMARY | 2024-08-01 18:35 | XMS_ITS | Encounter Summary ---
Author Organization [facility] [place] [address] Care Team Providers Care Charge Master Analyst Name Role Phone Hoang Castellanos APRN Primary Care Provider Encounter Details Date Type Department Care Team (Latest Contact Info) Description 10/10/2020 1:00 PM EDT TH Visit (TeleHealth) Primary Care at [facility] 10 [facility] [place] [phone] Hoang Castellanos APRN 10 [facility] [place] [address] Type 2 diabetes mellitus without complication, without [...] - 10/10/2020 1:00 PM EDT [facility] Telehealth Encounter Nurse Call: Patient called to [...] wheelchair, getting a ramp and travel size idooter [facility] with Cardiology on 10/01-Dr. Timothy Haynes Planning to do Zio patch and Echo RECOVER program in [facility] helping her build a ramp [...] fall risk. She was instructed to call [employer] to start working with them for EMS [...] Vitamin B12 1,085 232 - 1,245 pg/mL [facility] Blood specimen (specimen) 10/14/2020 10:20 AM EDT 10/14/2020 4:28 PM EDT Narrative Resulting Agency Comment Spec In Lab Britnikeri Trinidad Emanuel VARGAS CHEMISTRY ORDERABLES [facility] [place] [address] * Vitamin D, 25-Hydroxy (10/14/2020 10:20 AM EDT) Vitamin D Total 25 OH 54 21 - 100 ng/mL [facility] Vit D Interp Sufficient [facility] Blood specimen (specimen) 10/14/2020 10:20 AM EDT 10/14/2020 4:28 PM EDT Narrative Resulting Agency Comment Spec In Lab Hoang Castellanos APRN CHEMISTRY ORDERABLES Performing Organization Address City/[facility]/ZIP Co de Phone Number [facility] [place] [address] * Iron and TIBC (10/14/2020 10:20 AM EDT) Iron 67 30 - 150 mcg/dL [facility] TIBC 342 250 - 450 mcg/dL [facility] Iron Saturation 20 20 - 50 % [facility] Blood specimen (specimen) 10/14/2020 10:20 AM EDT 10/14/2020 1:58 PM EDT Narrative Resulting Agency Comment Spec In Lab Hoang Vivi Emanuel WOLFN CHEMISTRY ORDERABLES [facility] [address] [place] [address] * Ferritin (10/14/2020 10:20 AM EDT) Ferritin 60 30 - 400 ng/mL [facility] Comment: Pediatric reference ranges not verified at [facility], interpret with caution. Reference ranges for females greater than 50 years of age approach values for men, i.e., 30-400 ng/mL. Blood specimen (specimen) 10/14/2020 10:20 AM EDT 10/14/2020 11:15 AM EDT Narrative Resulting Agency Comment Spec In Lab Hoang Castellanos APRN CHEMISTRY ORDERABLES Performing Organization Address City/[facility]/ZIP Co de Phone Number [facility] [address] [place] [address] * TSH (10/14/2020 10:20 AM EDT) [facility] Thyroid Stimulating Hormone 1.96 0.27 - 4.20 mcIU/mL [facility] Blood specimen (specimen) 10/14/2020 10:20 AM EDT 10/14/2020 11:15 AM EDT Narrative Resulting Agency Comment Spec In Lab Hoang Castellanos APRN CHEMISTRY ORDERABLES Performing Organization Address [facility] Co de Phone Number [facility] [address] [place] [address] * (ABNORMAL) Hemoglobin A1c (10/14/2020 10:20 AM EDT) [facility] Hemoglobin A1c 5.7(H) 4.3 - 5.6 % [facility] Estimated Average Glucose 117 mg/dL [facility] Blood specimen (specimen) 10/14/2020 10:20 AM EDT 10/14/2020 11:15 AM EDT Narrative Resulting Agency Comment Spec In Lab Hoang Castellanos APRN CHEMISTRY ORDERABLES Performing Organization Address City/[facility] Co de Phone Number [facility] [address] [place] [address] * (ABNORMAL) CMP w/fasting Glucose (10/14/2020 10:20 AM EDT) [facility] Glucose Fasting 88 65 - 99 mg/dL [facility] Comment: ?Fasting* Glucose Interpretive Criteria [...] of Diabetes Mellitus, Position Statement from the [place] [employer]. ??Diabetes Care, Volume 33, Supplement 1, Jul 2009 Blood Urea Nitrogen 21(H) 8 - 18 mg/dL [facility] Creatinine 0.72 0.70 - 1.20 mg/dL [facility] Sodium 138 135 - 145 mmol/L [facility] Potassium 4.1 3.5 - 5.0 mmol/L [facility] Comment: Please note: ??Patients with WBC >100,000 may have falsely elevated Potassium levels. ??For accurate Potassium quantification in these patients send serum separator tube (gold top) for subsequent determinations. ??Contact the Clinical Chemistry Laboratory if there are any questions. Chloride 99 98 - 107 mmol/L [facility] Carbon Dioxide 28 22 - 31 mmol/L [facility] Anion Gap 11 5 - 15 mmol/L [facility] Calcium 9.5 8.5 - 10.5 mg/dL [facility] Protein, Total 6.9 6.1 - 8.0 gm/dL [facility] Albumin 4.1 3.2 - 5.2 gm/dL [facility] Aspartate Aminotransferase 11 0 - 30 unit/L [facility] Alanine Aminotransferase 6 0 - 30 unit/L [facility] Alkaline Phosphatase 108(H) 35 - 105 unit/L [facility] Bilirubin, Total 0.3 0.2 - 1.3 mg/dL [facility] Est Glomerular Filtration Rate 91 >=60 mL/min/1. 73 m?? [facility] [...] Castellanos APRN CHEMISTRY ORDERABLES Performing Organization Address City/State/[facility] Co de Phone Number [facility] [address] [place] [address] documented in this encounter Visit Diagnoses Diagnosis Type 2 diabetes mellitus without complication, without long-term current use of insulin Benign essential hypertension Essential hypertension, benign Dizziness Dizziness and giddiness Hypothyroidism, acquired Unspecified hypothyroidism Vitamin B12 deficiency Other B-complex deficiencies Vitamin D deficiency Unspecified vitamin D deficiency Iron deficiency anemia, unspecified iron deficiency anemia type documented in this encounter Care Teams Charge Master Analyst Relationship Specialty Start Date End Date Hoang Castellanos APRN [address] [place] [address] PCP - General Family Medicine 03/12/20 documented as of this encounter
--- OUTSIDE RECORDS SUMMARY | 2024-08-01 18:35 | XMS_ITS | Encounter Summary ---
Author Organization [facility] [place] [address] Care Team Providers Care Fabrication Mig Welder Name Role Phone Hoang Castellanos APRN Primary Care Provider Encounter Details Date Type Department Care Team (Late st Contact Info) Description 04/08/2020 12:00 PM EDT Office Visit Physical Therapy at [address] [phone] Keely Childers PTA Low back pain, non-specific [...] her pain symptoms today. O: Therex: Strength/Endurance/ROM ([id number]) 40 min ?? Supine Posterior/anterior pelvic rocks [...] non-specific documented in this encounter Care Teams Fabrication Mig Welder Relationship Specialty Start Date End Date Hoang Castellanos APRN [address] [place] [address] PCP - General Family Medicine 03/12/20 documented as of this encounter
--- OUTSIDE RECORDS SUMMARY | 2024-08-01 18:35 | XMS_ITS | Encounter Summary ---
[place] [address] Care Team Providers Care Streetcar Operator Name Role Phone Hoang Castellanos APRN Primary Care Provider Encounter Details Date Type Department Care Team (Late st Contact Info) Description 10/08/2020 Telephone Primary Care at [facility] 10 [place] [phone] Shannon Cruz RN Social History Tobacco Use [...] of the appt. Talked to [facility] PT, they are trying to help with [...] urine. She is asking for [facility] RN to come in for BP monitoring [...] tract infection, submit a new specimen. (A) [facility] Urine specimen obtained by clean catch procedure (specimen) 10/14/2020 10:20 AM EDT 10/14/2020 4:00 PM EDT Narrative Resulting Agency Comment Spec In Lab Hoang Castellanos APRN MICROBIOLOGY - GENER AL ORDERABLES [facility] [place] [address] * (ABNORMAL) _Urinalysis with microscopic (10/14/2020 10:20 AM EDT) Glucose, Urine Dipstick Negative Negative [facility] Protein, Urine Dipstick Negative Negative [facility] Bilirubin, Urine Dipstick Negative Negative [facility] Comment: Clinical correlation required for positive Urine Bilirubin results as false positive may occur with some drugs and drug related products. If a false positive is suspected a serum total bilirubin should be considered if clinically indicated. Urobilinogen, Urine Dipstick Normal Normal mg/dL [facility] pH, Urn (dipstick) 6.5 5.0 - 8.0 [facility] Blood, Urine Dipstick Moderate(A) Negative [facility] Ketone, Urine Dipstick Negative Negative [facility] Nitrite, Urine Dipstick Negative Negative [facility] Leukocytes, Urine Dipstick Small(A) Negative [facility] Appearance, Urine Dipstick Slightly Cloudy [facility] Specific [place] Urine Automated 1.020 1.006 - 1.030 [facility] Color, Urine Dipstick Yellow Yellow [facility] RBC, Urine 20(H) 0 - 4 /HPF [facility] WBC, Urine 10(H) 0 - 5 /HPF [facility] Bacteria, Urine Occasional( A) None /HPF [facility] Budding Yeast, Urine Occasional( A) None /HPF [facility] Transitional Epithelial Cells, Urine 2(H) <=1 /HPF [facility] Calcium Oxalate Crystal, Urine Rare(A) None /HPF [facility] Urine specimen (specimen) 10/14/2020 10:20 AM EDT 10/14/2020 11:15 AM EDT Narrative Resulting Agency Comment Spec In Lab Hoang Castellanos MESSAGE AND DELIVERY SERVICE PRICER URINE ORDERABLES [facility] 10 [place] [address] documented in this encounter Visit Diagnoses Diagnosis Foul smelling urine Other nonspecific finding on examination of urine documented in this encounter Care Teams Streetcar Operator Relationship Specialty Start Date End Date Hoang Castellanos, MESSAGE AND DELIVERY SERVICE PRICER [address] [place] [address] PCP - General Family Medicine 03/12/20 documented as of this encounter
--- OUTSIDE RECORDS SUMMARY | 2024-08-01 18:36 | XMS_ITS | Encounter Summary ---
Author Organization [facility] [place] [address] Care Team Providers Care Service Associate Name Role Phone Hoang Castellanos APRN Primary Care Provider [phone] Reason for Referral * Diagnostic Test (Routine) - Closed Specialty Diagnoses / Procedures Referred By Contac t Referred To Contact Radiology Diagnoses Chronic right-sided low back pain with right-sided sciatica Procedures MRI Lumbar Spine wo Contrast (Generic) Hoang Castellanos APRN [address] [place] [address] [facility]ri [address] [place] [address] Referral ID Status Reason Start Date Expiration Date V isits Requested Visits Authorized [id number] Closed Specialty Service Requested 02/05/2020 08/07/2021 1 1 Reason for Visit * Diagnostic Test (Routine) - Closed Specialty Diagnoses / Procedures Referred By Contac t Referred To Contact Radiology Diagnoses Chronic right-sided low back pain with right-sided sciatica Procedures MRI Lumbar Spine wo Contrast (Generic) Hoang Castellanos APRN [address] [place] [address] [facility] Rad Mri [address] [place] [address] Referral ID Status Reason Start Date Expiration Date V isits Requested Visits Authorized [id number] Closed Specialty Service Requested 02/05/2020 08/07/2021 1 1 Encounter Details Date Type Department Care Team (Latest Contact Info) Description 02/19/2020 7:23 AM EDT - 02/19/2020 11:59 PM EDT Hospital Encounter Radiology MRI at [facility] [address] [place] [address] Hoang Castellanos, CROP GRAIN OR LIVESTOCK FARM MANAGER [address] FAMILY MEDICINE [place], [place] [phone] Chronic right-sided low back pain with right-sided [...] as needed for Indigestion. 11/26/2021 lisinopriL (Prinivil;Zestril) 10 mg TabletIndications:Augie gn essential [...] 3 capsules by mouth nightly. 84 each 11/27/2019 02/28/2020 tiZANidine (Zanaflex) 4 mg Tablet TAKE ONE (1) TABLET BY MOUTH EVERY 6-8 HOURS NEEDED *MAX 3 DOSES PER 24HR* (VIAL) 60 tablet 5 11/21/2019 10/10/2020 Incruse Ellipta 62.5 mcg/actuation Disk with Device USE ONE PUFF INTO THE LUNGS EVERY DAY 30 each 11/08/2019 10/10/2020 omeprazole (PriLOSEC) 20 mg Capsule, Delayed Release(E.C.)Indicatio ns:Gastroesophageal reflux disease, esophagitis presence not specified Take 1 capsule by mouth 2 times daily. 56 capsule 11 10/29/2019 10/02/2020 lactobacillus rhamnosus, GG, (CULTURELLE) 10 billion cell Capsule Take 2 capsules by mouth 2 times daily. 02/26/2021 meloxicam (MOBIC) 15 mg TabletIndications:Gauge Operator randell left SI joint pain Take 1 [...] the clinical situation (Reference- Sugark Et Al, [id number]). Findings: (Prevalence in patients without low back [...] sciatica documented in this encounter Care Teams Service Associate Relationship Specialty Start Date End Date Hoang Castellanos APRN [address] [place] [address] PCP - General Family Medicine 12/07/19 03/11/20 documented as of this encounter
--- OUTSIDE RECORDS SUMMARY | 2024-08-01 18:36 | XMS_ITS | Encounter Summary ---
Author Organization [facility]ly [facility], [facility] [place] [address] Care Team Providers Care Environmental Monitoring Specialist Name Role Phone Mark Holguin APRN Primary Care Provider Encounter Details Date Type Department Care Team (Late st Contact Info) Description 01/01/2020 Orders Only Primary Care at [facility] 10 [facility] [place] [address] Mark Holguin APRN 10 [facility] [place] [address] Essential hypertension; Hypothyroidism, acquired; Type 2 diabetes [...] Results * TSH (01/01/2020 8:33 AM EDT) Thyroid Stimulating Hormone 1.53 0.27 - 4.20 mcIU/mL [facility] Blood specimen (specimen) 01/01/2020 8:33 AM EDT 01/01/2020 11:13 AM EDT Narrative Resulting Agency Comment Spec In Lab / APD Mark Holguin RETAIL FURNITURE SALES CHEMISTRY ORDERABLES [facility] [address] [place] [address] * (ABNORMAL) Comprehensive metabolic panel (non-fasting) (01/01/2020 8:33 AM EDT) Glucose 105 65 - 199 mg/dL [facility] Comment:Diabetes: >=200 mg/d L plus symptoms Blood Urea Nitrogen 14 8 - 18 mg/dL [facility] Creatinine [...] Chloride 97(L) 98 - 107 mmol/L [facility] Carbon Dioxide 28 22 - 31 mmol/L [facility] Anion Gap 11 5 - 15 mmol/L [facility] Calcium 9.6 8.5 - 10.5 mg/dL [facility] Protein, Total 7.1 6.1 - 8.0 gm/dL [facility] Albumin 4.0 3.2 - 5.2 gm/dL [facility] Aspartate Aminotransferase 14 0 - 30 unit/L [facility] Alanine Aminotransferase 8 0 - 30 unit/L [facility] Alkaline Phosphatase 111(H) 35 - 105 unit/L [facility] Bilirubin, Total 0.3 0.2 - 1.3 mg/dL [facility] Est Glomerular Filtration Rate 70 >=60 mL/min/1. 73 m?? [facility] Comment: The eGFR was calculated using the CKD-EPI equation. As with all creatinine based estimates of kidney function, eGFR values calculated with the CKD-EPI equation are not accurate in patients with acute kidney failure, extremes of body mass or the acutely ill. http://[employer]/[facility] POTEAUnk eGFR 81 >=60 mL/min/1. 73 m?? [facility] Comment: The eGFR was calculated using the CKD-EPI equation. As with all creatinine based estimates of kidney function, eGFR values calculated with the CKD-EPI equation are not accurate in patients with acute kidney failure, extremes of body mass or the acutely ill. http://[employer]/[facility]OTEAUnkf Blood specimen (specimen) 01/01/2020 8:33 AM EDT 01/01/2020 11:13 AM EDT Narrative Resulting Agency Comment Spec In Lab / APD Mark Holguin APRN CHEMISTRY ORDERABLES Performing Organization Address [facility] Co de Phone Number [facility]ATORY [address] [place] [address] * (ABNORMAL) Hemoglobin A1c (01/01/2020 8:33 AM EDT) Hemoglobin A1c 6.0(H) 4.3 - 5.6 % [facility] Estimated Average Glucose 126 mg/dL [facility] Blood specimen (specimen) 01/01/2020 8:33 AM EDT 01/01/2020 11:11 AM EDT Narrative Resulting Agency Comment Spec In Lab / APD Mark Holguin APRN CHEMISTRY ORDERABLES Performing Organization Address City/[facility] Co de Phone Number LABORATORY [address] [place] [place] [address] documented in this encounter Visit Diagnoses Diagnosis Essential hypertension Unspecified essential hypertension Hypothyroidism, acquired Unspecified hypothyroidism Type 2 diabetes mellitus without complication, without long-term current use of insulin documented in this encounter Care Teams Environmental Monitoring Specialist Relationship Specialty Start Date End Date Mark Holguin, RETAIL FURNITURE SALES [address] [place] [address] PCP - General Family Medicine 12/07/19 03/11/20 documented as of this encounter
--- OUTSIDE RECORDS SUMMARY | 2024-08-01 18:36 | XMS_ITS | Encounter Summary ---
Author [place] [address] Care Team Providers Care Customer Marketing Intern Name Role Phone Yisel Marroquin MD Primary Care Provider Unavail able Encounter Details Date Type Department Care Team (Late st Contact Info) Description 09/24/2019 Telephone Primary Care at [facility] 10 [place] [address] Meli Jaimes, ENDODONTICS DENTIST [address] [place] [address] Social History Tobacco Use Types Packs/Day Years [...] PM EST Message received from Patel with [facility]. He is calling because the patient's prescriptionfor meloxicam interacts with her aspirin, lisinopril, sertraline and plavix. They need to confirm that you are aware of this and okay with the possible interactions. documented in this encounter Plan of Treatment Not on file documented as of this encounter Visit Diagnoses Not on filedocumented in this encounter Care Teams Customer Marketing Intern Relationship Specialty Start Date End Date Yisel Marroquin MD PCP - General General Internal Medicine 03/06/19 0 documented as of this encounter
--- OUTSIDE RECORDS SUMMARY | 2024-08-01 18:36 | XMS_ITS | Encounter Summary ---
Author Organization [facility] Address [facility] [place] [address] Care Team Providers Care Plastic Molding Operator Name Role Phone Hoang Castellanos APRN Primary Care Provider Encounter Details Date Type Department Care Team (Latest Contact Info) Description 01/01/2020 8:30 AM EDT Laboratory Appointment Laboratory at [address] [place] [phone] Essential hypertension; Type 2 diabetes mellitus without [...] current use of insulin COMPREHENSIVE METABOLIC PANEL Routine 01/01/2020 8:33 AM EDT Essential hypertension documented in this encounter Results * TSH (01/01/2020 8:33 AM EDT) Thyroid Stimulating Hormone 1.53 0.27 - 4.20 mcIU/mL [facility] Blood specimen (specimen) 01/01/2020 8:33 AM EDT 01/01/2020 11:13 AM EDT Narrative Resulting Agency Comment Spec In Lab / APD Hoang Castellanos APRN CHEMISTRY ORDERABLES [facility] [address] [place] [address] * Differential, Automated (01/01/2020 8:33 AM EDT) Neutrophil % 70.8 % [facility] Neutrophil Absolute 5.87 1.70 - 6.10 x10(3)/mcL [facility] Lymph % 19.6 % [facility] Lymphocytes Abs 1.6 0.9 - 3.2 x10(3)/mcL [facility] Monocyte % 8.3 % [facility] Monocyte Abs 0.7 0.3 - 0.9 x10(3)/mcL [facility] Eos % 0.6 % [facility] Eosinophils Abs 0.0 0.0 - 0.4 x10(3)/mcL [facility] Basophil % 0.6 % [facility] Baso Absolute 0.0 0.0 - 0.1 x10(3)/mcL [facility] Immature Gran % 0.10 [...] 0.01 0.00 - 0.04 x10(3)/mcL [facility] Blood specimen (specimen) 01/01/2020 8:33 AM EDT 01/01/2020 11:11 AM EDT Narrative Resulting Agency Comment Spec In Lab / APD Hoang Castellanos RIGHT OF WAY CLEARER HEMATOLOGY ORDERABLE S LABORATORY [address] [place] [address] * (ABNORMAL) Hemogram (01/01/2020 8:33 AM EDT) White Blood Cell 8.3 4.0 - 9.5 x10(3)/mc L [facility] Red Blood Cell 4.62 4.00 - 5.21 x10(6)/mc L [facility] Hemoglobin 13.9 11.7 - 15.5 gm/dL [facility] Hematocrit 44.3 35.7 - 45.8 % [facility] Mean Cell Volume 95.9(H) 82.6 - 94.4 fL [facility] Mean Cell Hemoglobin 30.1 27.1 - 32.0 pg LAB[facility] Mean Cell Hemoglobin Concentration 31.4(L) 31.7 - 35.0 gm/dL [facility] Platelet 268 145 - 357 x10(3)/mc L [facility] RDW Standard Deviation 50.6(H) 37.0 - 46.0 fL [facility] RDW coefficient of variation 14.1 11.5 - 14.1 % [facility] Mean Platelet Volume 10.0 7.6 - 12.9 fL [facility] Blood specimen (specimen) 01/01/2020 8:33 AM EDT 01/01/2020 11:11 AM EDT Narrative Resulting Agency Comment Spec In Lab / APD Hoang Castellanos APRN HEMATOLOGY ORDERABLE S Performing Organization Address [facility] Co de Phone Number LABORATORY [address] [facility] [place] [address] * (ABNORMAL) Hemoglobin A1c (01/01/2020 8:33 AM EDT) Hemoglobin A1c 6.0(H) 4.3 - 5.6 % LAB[facility] Estimated Average Glucose 126 mg/dL [facility] Blood specimen (specimen) 01/01/2020 8:33 AM EDT 01/01/2020 11:11 AM EDT Narrative Resulting Agency Comment Spec In Lab / APD Hoang Castellanos APRN CHEMISTRY ORDERABLES Performing Organization Address [facility] Co de Phone Number LABORATORY [address] [facility] [place] [address] * (ABNORMAL) Comprehensive metabolic panel (non-fasting) (01/01/2020 [...] of body mass or the acutely ill. [email or web address]nkf eGFR 81 >=60 mL/min/1. 73 m?? LAB[facility]ATORY Comment: The eGFR was calculated using the CKD-EPI equation. As with all creatinine based estimates of kidney function, eGFR values calculated with the CKD-EPI equation are not accurate in patients with acute kidney failure, extremes of body mass or the acutely ill. [email or web address] Blood specimen (specimen) 01/01/2020 8:33 AM EDT 01/01/2020 11:13 AM EDT Narrative Resulting Agency Comment Spec In Lab / APD Hoang Castellanos APRN CHEMISTRY ORDERABLES LABORATORY [address] [place] [address] documented in this encounter Visit Diagnoses Diagnosis Essential hypertension Unspecified essential hypertension Type 2 diabetes mellitus without complication, without long-term current use of insulin Hypothyroidism, acquired Unspecified hypothyroidism documented in this encounter Care Teams Plastic Molding Operator Relationship Specialty Start Date End Date Hoang Castellanos APRN [address] [place] [address] PCP - General Family Medicine 12/07/19 03/11/20 documented as of this encounter
--- OUTSIDE RECORDS SUMMARY | 2024-08-01 18:36 | XMS_ITS | Encounter Summary ---
Author Organization [facility] [place] [address] Care Team Providers Care Stock Wetter Name Role Phone Hoang Castellanos APRN Primary Care Provider Encounter Details Date Type Department Care Team (Latest Contact Info) Description 01/18/2020 12:45 PM EDT Laboratory Appointment Laboratory at [place] [phone] Obesity, unspecified classification, unspecified obesity type, unspecified [...] EDT) Prealbumin 18(L) 20 - 40 mg/dL [facility] Comment: Prealbumin levels are generally lower in the pediatric population; adult concentrations are usually attained near puberty. Blood specimen (specimen) 01/18/2020 12:56 PM EDT 01/18/2020 4:52 PM EDT Narrative Resulting Agency Comment Spec In Lab / APD Priya Charles APRN CHEMISTRY ORDERA BLES [facility] [place] [place] [address] * (ABNORMAL) Ferritin (01/18/2020 12:56 PM EDT) Ferritin 16(L) 30 - 400 ng/mL [facility] Comment: Pediatric reference ranges not verified at [facility], interpret with caution. Reference ranges for females greater than 50 years of age approach values for men, i.e., 30-400 ng/mL. Blood specimen (specimen) 01/18/2020 12:56 PM EDT 01/18/2020 1:45 PM EDT Narrative Resulting Agency Comment Spec In Lab / APD Priya Charles SAM CHEMISTRY ORDERA BLES Performing Organization Address [facility]/ZIP Co de Phone Number [facility] [address] [place] [address] * (ABNORMAL) Iron and TIBC (01/18/2020 12:56 PM EDT) Iron 44 30 - 150 mcg/dL [facility] TIBC 397 250 - 450 mcg/dL [facility] Iron Saturation 11(L) 20 - 50 % [facility] Blood specimen (specimen) 01/18/2020 12:56 PM EDT 01/18/2020 1:45 PM EDT Narrative Resulting Agency Comment Spec In Lab / APD Priya Charles SNACK BAR ATTENDANT CHEMISTRY ORDERA BLES Performing Organization Address [facility] Co de Phone Number [facility] [address] [facility] [place] [address] * PTH (01/18/2020 12:56 PM EDT) Parathyroid Hormone 54 15 - 65 pg/mL [facility] Blood specimen (specimen) 01/18/2020 12:56 PM EDT 01/18/2020 4:52 PM EDT Narrative Resulting Agency Comment Spec In Lab / APD Priya Vivi Clermont SAM CHEMISTRY ORDERA BLES Performing Organization Address City/[facility]/ZIP Co de Phone Number [facility] [place] [address] * Vitamin D, 25-Hydroxy (01/18/2020 12:56 PM EDT) Vitamin D Total 25 OH 38 21 - 100 ng/mL [facility] Comment: Please note, effective November 28, 2019, additional result field for Vitamin D Interpretation, and updated flagging notification. 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
--- OUTSIDE RECORDS SUMMARY | 2024-08-01 18:36 | XMS_ITS | Encounter Summary ---
[place] [address] Care Team Providers Care Transformation Architect Name Role Phone Hoang Castellanos APRN Primary Care Provider Encounter Details Date Type Department Care Team (Late st Contact Info) Description 01/08/2020 1:00 PM EDT TH Visit (TeleHealth) [place] [address] Priya Charles, MANIPULATOR OPERATOR [facility] [place] [address] Tamar Guerra, RD [facility] [place] [address] Essential hypertension; Smokes cigarettes; Gastroesophageal reflux disease, [...] Guerra, RD - 01/08/2020 1:00 PM EDT [facility] bilingual patient support caseworker Lela [phone] and [place] [phone] Dietitians: [phone] Surgeons/ nurse practitioners: [phone] Nurse line: [phone] Dear Jeannie It was nice talking to [...] follow up in 1 year. Please call [phone] if you do not receive an appointment [...] Our post surgery support group meets at [facility]- currently on hold due to covid 19 1. on the first Tuesday of every month from 1:00 PM-2:00 PM Nutrition and Activity apps- Baritastic, My Fitness Pal, Lose It, My Plate Internet resources: www.Merge.rs AG wwwArtify It www.bariatriceating.[employer] www.[employer] Services.[employer]/blog [facility] facebook page: https://www.facebook.com/[facility]DBariatricSurgery Books & Magazines: - Recipes for Life After Weight Loss Surgery by Suly Cruz - Shrink Yourself by Dr Juan Carlos Carlos - Eating Well - www.Movidius - Cooking Light- www.cookingPano Logic.[employer] Anxiety: The Happiness Trap by Efren Richey The Mindfulness and acceptance workbook for anxiety By Jose A Acosta. Mindful eating: What are you Hungry For? By Ricardo Murray The Mindful Diet by Katerine Nelson and the [facility] group. Emotional eating: End Emotional Eating by Tamar Russo Calming the Emotional Storm Jessica Hayes documented in this encounter Progress Notes * Priya Charles APRN - 01/08/2020 1:00 [place] [address] Bariatric Surgery Program: Telephone Encounter. 1. Reason/purpose [...] G89.29 ??? Lumbago M54.5 ??? Atherosclerosis of [place] coronary artery of [place] heart without angina pectoris I25.10 ??? Hypertension [...] down 5#. ?? Using Premier Protein powder. [place] milk- feels like she's going to throw- up. Drinks it fast. ?? Works with therapist weekly and bottle caser daily Social History: Has a supportive manager case management.? OBJECTIVE: Type of Surgery:??non-divided RNY gastric bypass [...] 01/08/20 224# 51% 38.4 19.5 years post-op [place] Body Weight (based on BMI of 25): [...] Perfect Iron which is made by the [employer]. Supplement Type Brand/Form Dosage/Amount Frequency Comments Multivitamin [...] 25 OH 38 21 - 100 ng/mL [facility] Comment: Please note, effective November 28, 2019, additional result field for Vitamin D Interpretation, and updated flagging notification. Vit D Interp Sufficient [facility] Blood specimen (specimen) 01/18/2020 12:56 PM EDT 01/18/2020 4:52 PM EDT Narrative Resulting Agency Comment Spec In Lab / APD Priya Charles APRN CHEMISTRY ORDERA BLES Performing Organization Address City/[facility]/ZIP Co de Phone Number [facility] [place] [place] [address] * PTH (01/18/2020 12:56 PM EDT) Parathyroid Hormone 54 15 - 65 pg/mL [facility] Blood specimen (specimen) 01/18/2020 12:56 PM EDT 01/18/2020 4:52 PM EDT Narrative Resulting Agency Comment Spec In Lab / APD Priya Charles APRN CHEMISTRY ORDERA BLES Performing Organization Address City/[facility]/ZIP Co de Phone Number [facility] [place] [address] * (ABNORMAL) Iron and TIBC (01/18/2020 12:56 [...] CHEMISTRY ORDERA BLES Performing Organization Address [facility] de Phone Number [facility] [address] [place] [phone] * (ABNORMAL) Ferritin (01/18/2020 12:56 PM EDT) Ferritin 16(L) 30 - 400 ng/mL [facility] Comment: Pediatric reference ranges not verified at [facility], interpret with caution. Reference ranges for females greater than 50 years of age approach values for men, i.e., 30-400 ng/mL. Blood specimen (specimen) 01/18/2020 12:56 PM EDT 01/18/2020 1:45 PM EDT Narrative Resulting Agency Comment Spec In Lab / APD Priya Charles APRN CHEMISTRY ORDERA BLES Performing Organization Address [facility] de Phone Number [facility] [address] [place] [phone] * (ABNORMAL) Prealbumin (01/18/2020 12:56 PM EDT) Prealbumin 18(L) 20 - 40 mg/dL [facility] Comment: Prealbumin levels are generally lower in the pediatric population; adult concentrations are usually attained near puberty. Blood specimen (specimen) 01/18/2020 12:56 PM EDT 01/18/2020 4:52 PM EDT Narrative Resulting Agency Comment Spec In Lab / APD Priya Charles APRN CHEMISTRY ORDERA BLES Performing Organization Address [facility] Co de Phone Number [facility] [place] [address] documented in this encounter Visit Diagnoses Diagnosis [...] nonabsorption documented in this encounter Care Teams Transformation Architect Relationship Specialty Start Date End Date Hoang Castellanos, MANIPULATOR OPERATOR [address] [place] [address] PCP - General Family Medicine 12/07/19 03/11/20 documented as of this encounter
--- OUTSIDE RECORDS SUMMARY | 2024-08-01 18:36 | XMS_ITS | Encounter Summary ---
Author Organization [facility] [place] [address] Care Team Providers Care Seasoning Mixer Name Role Phone Honag Castellanos APRN Primary Care Provider Reason for Visit * Reason Comments Follow-up Right intra-articula r distal radius and ulna fracture 02/04/20 Encounter Details Date Type Department Care Team (Late st Contact Info) Description 03/04/2020 9:00 AM EDT Office Visit Orthopaedics at [place] [address] Closed fracture of distal end of right [...] sequela documented in this encounter Care Teams Seasoning Mixer Relationship Specialty Start Date End Date Hoang Castellanos, SAM [address] [place] [address] PCP - General Family Medicine 12/07/19 03/11/20 documented as of this encounter
--- OUTSIDE RECORDS SUMMARY | 2024-08-01 18:36 | XMS_ITS | Encounter Summary ---
Author Organization [place] [address] Care Team Providers Care Mental Health Unit Lead Psychologist Name Role Phone Hoang Castellanos APRN Primary Care Provider [phone] Encounter Details Date Type Department Care Team (Late st Contact Info) Description 12/24/2019 Orders Only Primary Care at [facility] [place] [address] [place] [phone] Payal Ace, PATIENT ACCOUNT ANALYST Social History Tobacco Use Types Packs/Day Years [...] on filedocumented in this encounter Care Teams Mental Health Unit Lead Psychologist Relationship Specialty Start Date End Date Hoang Castellanos APRN [address] [place] [address] PCP - General Family Medicine 12/07/19 03/11/20 documented as of this encounter
--- OUTSIDE RECORDS SUMMARY | 2024-08-01 18:36 | XMS_ITS | Encounter Summary ---
[place] [address] Care Team Providers Care Executive Administrative Assistant Name Role Phone Yisel Marroquin MD Primary Care Provider Unavail able Reason for Visit * Reason Comments Medication Refill Encounter Details Date Type Department Care Team (Late st Contact Info) Description 10/29/2019 Ref[address] Care at [facility] [address] [place] [phone] Yisel Marroquin MD Gastroesophageal reflux disease, esophagitis presence not specified [...] specified documented in this encounter Care Teams Executive Administrative Assistant Relationship Specialty Start Date End Date Yisel Marroquin MD PCP - General General Internal Medicine 03/06/19 0 documented as of this encounter
--- OUTSIDE RECORDS SUMMARY | 2024-08-01 18:36 | XMS_ITS | Encounter Summary ---
[place] [address] Care Team Providers Care Evaluator Name Role Phone Hoang Castellanos APRN Primary Care Provider Encounter Details Date Type Department Care Team (Late st Contact Info) Description 02/27/2020 Telephone Primary Care at [facility] [address] [place] [phone] Isadora Hidalgo LPN Social History Tobacco Use [...] on the with RA to call Sherri [phone], Jeannie dobson to be part of the appointment documented in this encounter Plan of Treatment Not on file documented as of this encounter Visit Diagnoses Not on filedocumented in this encounter Care Teams Evaluator Relationship Specialty Start Date End Date Hoang Castellanos, SAM [address] [place] [address] PCP - General Family Medicine 12/07/19 03/11/20 documented as of this encounter
--- OUTSIDE RECORDS SUMMARY | 2024-08-01 18:36 | XMS_ITS | Encounter Summary ---
Author Organization [facility] [place] [address] Care Team Providers Care Personal Injury Paralegal Name Role Phone Hoang Castellanos APRN Primary Care Provider [phone] Reason for Visit * Reason Comments Medication Refill Encounter Details Date Type Department Care Team (Late st Contact Info) Description 01/21/2020 Refill Primary Care at [facility] 10 [place] [phone] Yisel Marroquin MD Social History Tobacco Use Types Packs/Day Years [...] filedocumented in this encounter Care Teams Personal Injury Paralegal Relationship Specialty Start Date End Date Hoang Castellanos, MACHINE SPREADER [address] [place] [address] PCP - General Family Medicine 12/07/19 03/11/20 documented as of this encounter
--- OUTSIDE RECORDS SUMMARY | 2024-08-01 18:36 | XMS_ITS | Encounter Summary ---
Author Organization [facility] Address [facility] [address] Care Team Providers Care Drop Pit Worker Name Role Phone Hoang Castellanos APRN Primary Care Provider [phone] Reason for Visit * Reason Comments Establish Care Right distal radius and ulnar styloid fracture 02/04/20 * Consultation (Routine) - Specialty Diagnoses / Procedures Referred By Vanita dimas Referred To Contact Orthopaedics Diagnoses Closed fracture of distal end of right radius, unspecified fracture morphology, initial encounter Hoang Castellanos APRN [address] [facility] [place] [address] [facility] [address] [place] [address] Referral ID Status Reason Start Date Expiration Date Visits Requested Visits Authorized [id number] Specialty Service Requested 02/05/2020 02/04/2021 6 6 Encounter Details Date Type Department Care Team (Late st Contact Info) Description 02/06/2020 10:00 AM EDT Office Visit Orthopaedics at [facility] [address] [place] [address] Talita Hernandez MD 10 [facility] [place] [address] Other closed intra-articular fracture of [...] G89.29 ??? Lumbago M54.5 ??? Atherosclerosis of [place] coronary artery of [place] heart without angina pectoris I25.10 ??? Smokes [...] BIOPSY performed by Ken Sanders MD at [facility] ??? PRO UPPER GI ENDOSCOPY, BIOPSY N/A 09/19/2018 UPPER GASTROINTESTINAL ENDOSCOPY,WITH BIOPSY SINGLE OR MULTIPLE (WRVU 2.49) performed by Tyron Mercado MD at [facility] ??? TONSILLECTOMY ??? UPPER GI ENDOSCOPY, EXAM 12/04/2010 UPPER GI ENDOSCOPY performed by DEE WRIGHT at [facility] Family History Problem (# of [...] (H) 01/01/2020 Lab Results Component Value Date [id number] 02/07/2019 Lab Results Component Value Date TSH 1.53 01/01/2020 No results found for: URICACID * Talita Hernandez MD - 02/06/2020 10:00 AM EDT Hand Surgery Outpatient Consultation Note Reason for Consult: The patient is seen at the request of Hoang Castellanos for evaluation and treatment of Chief Complaint [...] G89.29 ??? Lumbago M54.5 ??? Atherosclerosis of [place] coronary artery of [place] heart without angina pectoris I25.10 ??? Smokes [...] BIOPSY performed by Ken Sanders MD at [facility] ??? PRO UPPER GI ENDOSCOPY, BIOPSY N/A 09/19/2018 UPPER GASTROINTESTINAL ENDOSCOPY,WITH BIOPSY SINGLE OR MULTIPLE (WRVU 2.49) performed by Tyron Mercado MD at [facility] ??? TONSILLECTOMY ??? UPPER GI ENDOSCOPY, EXAM 12/04/2010 UPPER GI ENDOSCOPY performed by DEE WRIGHT at [facility] Family History Problem (# of [...] this report, please contact the number below. Tailta Hernandez MD IMG DX ORDERABLES documented in this encounter Visit Diagnoses Diagnosis Other closed intra-articular fracture of distal end of right radius, initial encounter Other closed intra-articular fracture of distal end of right radius, initial encounter documented in this encounter Care Teams Drop Pit Worker Relationship Specialty Start Date End Date Hoang Castellanos, SAM [address] [place] [address] PCP - General Family Medicine 12/07/19 03/11/20 documented as of this encounter
--- OUTSIDE RECORDS SUMMARY | 2024-08-01 18:36 | XMS_ITS | Encounter Summary ---
Author Organization [facility] [place] [address] Care Team Providers Care Senior Oracle Applications Developer Name Role Phone Yisel Marroquin MD Primary Care Provider Unavail able Reason for Visit * Reason Comments Follow-up Encounter Details Date Type Department Care Team (Latest Contact Info) Description 09/24/2019 1:30 PM EST Office Visit Primary Care at [facility] [place] [address] Yisel Marroquin MD Need for shingles vaccine; Need for prophylactic [...] your doctor if you can take an qcet-mit-qgvgmqs pain medicine, such as acetaminophen (Tylenol), ibuprofen [...] Where can you learn more? Visit our [employer] Global information library at [email or web address] You can also view health information on [employer], your personal patient account. Log in or sign uptoday. Enter Y571 in the search box to learn more about Sacroiliac Joint Pain: Care Instructions. Current as of: January 17, 2019 Content Version: 12.3 ?? 3062-1043 [employer]. Care instructions adapted under license by [facility]. If you have questions about a medical condition or this instruction, always ask your healthcare professional. [employer] disclaims any warranty or liability for your [...] for you. How to do the exercises Aahd-yk-qvrau stretch 1. Do not do the vbfi-zo-smldj exercise if it causes or increases back [...] Where can you learn more? Visit our [employer] information library at [email or web address]o You can also view health information on [employer], your personal patient account. Log in or sign uptoday. Enter T635 in the search box to learn more about Sacroiliac Pain: Exercises. Current as of: January 17, 2019 Content Version: 12.3 ?? 2851-6334 [employer]. Care instructions adapted under license by [facility]. If you have questions about a medical condition or this instruction, always ask your healthcare professional. [employer] disclaims any warranty or liability for your [...] your doctor if you can take an beuf-aai-iyjwcgi pain medicine, such as acetaminophen (Tylenol), ibuprofen [...] Where can you learn more? Visit our [employer] information library at [email or web address] Globalinfo You can also view health information on [employer], your personal patient account. Log in or sign uptoday. Enter Y571 in the search box to learn more about Sacroiliac Joint Pain: Care Instructions. Current as of: January 17, 2019 Content Version: 12.3 ?? 7476-2855 [employer]. Care instructions adapted under license by [facility]. If you have questions about a medical condition or this instruction, always ask your healthcare professional. [employer] disclaims any warranty or liability for your [...] to do In Shape program with her [employer] program. Would like shingles and flu vaccine Patient states they do not need any refills at this time. Flu Vaccine 9022-6207 Age Considerations Vaccine Name Adult [x] 6 [...] had any of the following: History of Guillian-Newdale Syndrome, allergy to eggs, or allergicreaction to [...] (Reflex Direct LDL) (12/27/2019 7:27 AM EDT) [facility] Cholesterol, Total 114 mg/dL [facility] Comment: Lower Risk: <200 mg/dL Average Risk: 200-239 mg/dL Higher Risk: >rp=999 mg/dL Triglyceride 102 mg/dL [facility] Comment: Average Risk/Lower Risk: <150 mg/dL Borderline High Risk: 150-199 mg/dL High Risk: 200-499 mg/dL Very High Risk: >qw=601 mg/dL HDL Cholesterol 38 mg/dL [facility] Comment: Males: ?? Higher Risk: <40 mg/dL Females: ?? HIgher Risk: <50 mg/dL LDL Cholesterol 56 mg/dL [facility] Comment: Lowest Risk: <100 mg/dL Lower Risk: 100-129 mg/dL Borderline High Risk: 130-159 mg/dL High Risk: 160-189 mg/dL Very High Risk: >uo=652 mg/dL Cholesterol/HDL Ratio 3.0 ratio [facility] Lipid Interpretation See Note [facility] Comment: Lipid management should be guided by a patient? s ASCVD risk, goals and preferences. ACC/AHA Guidelines recommend high intensity statin if clinical ASCVD or LDL greater than or equal to 190 mg/dL. http://Metrik [email or web address]-NZL-Qlxgvckqo Adults aged 40-75 with LDL 70-189 mg/dL should have their 10 year ASCVD risk estimated with the ACC/AHA ASCVD risk process architect http://tools.acc.org/PHPYN-Apka-Kewfhedsg/ Statin should be discussed if risk greater [...] APD Yisel Marroquin MD CHEMISTRY ORDERABLES [facility] [address] [place] [address] * Magnesium (12/27/2019 7:27 AM EDT) Magnesium 0.80 0.69 - 1.07 mmol/L [facility] Blood specimen (specimen) 12/27/2019 7:27 AM EDT 12/27/2019 8:44 AM EDT Narrative Resulting Agency Comment Spec In Lab / APD Yisel Marroquin MD CHEMISTRY ORDERABLES [facility] [address] [place] [address] documented in this encounter Visit Diagnoses Diagnosis [...] documented in this encounter Care Teams Senior Oracle Applications Developer Relationship Specialty Start Date End Date Yisel Marroquin MD PCP - General General Internal Medicine 03/06/19 0 documented as of this encounter
--- OUTSIDE RECORDS SUMMARY | 2024-08-01 18:36 | XMS_ITS | Encounter Summary ---
Author Organization [facility] [place] [address] Care Team Providers Care Senior Ux Developer Name Role Phone Hoang Castellanos APRN Primary Care Provider [phone] Reason for Referral * Consultation (Routine) - Closed Specialty Diagnoses / Procedures Referred By Contac t Referred To Contact Neurology Diagnoses Dizziness Hoang Castellanos APRN [address] [place] [address] [facility] Neurology [address] [place] [phone] Referral ID Status Reason Start Date Expiration Date V isits Requested Visits Authorized [id number] Closed Specialty Service Requested 03/04/2020 03/04/2021 6 6 * Physical Therapy (Routine) - Closed Specialty Diagnoses / Procedures Referred By Contac t Referred To Contact Physical Therapy Diagnoses Chronic right-sided low back pain without sciatica Hoang Castellanos APRN [address] [place] [address] [facility] [address] [place] [address] Referral ID Status Reason Start Date Expiration Date V isits Requested Visits Authorized [id number] Closed Evaluate and Treat 03/04/2020 03/04/2021 12 12 Reason for Visit * Reason Comments Hypertension Back Pain Dizziness Encounter Details Date Type Department Care Team (Late st Contact Info) Description 03/04/2020 11:00 AM EDT [facility] [place] [address] Hoang Castellanos, CABINET ASSEMBLER [address] [place] [address] Dizziness; Chronic right-sided low back pain without [...] a 59 y.o. [facility] HPI HYPERTENSION: She has [...] visit: Dizziness - [facility]; 1 walker on wheels with seat Chronic right-sided low back pain without sciatica - ibuprofen (Advil;Motrin) 800 mg Tablet; Take 1 tablet by mouth every 8 hours as needed for Pain. - Referral to Physical Therapy [facility]; 1 walker on wheels with seat Healthcare maintenance - Shingrix Zoster Vaccine, IM Type 2 diabetes mellitus without complication, without long-term current use of insulin - CMP w/fasting Glucose; Future - Hemoglobin A1c; Future Will send Rx for walker with a seat to [facility] Referral back to Neurology for f/u [...] insulin documented in this encounter Care Teams Senior Ux Developer Relationship Specialty Start Date End Date Hoang Castellanos APRN [address] [place] [address] PCP - General Family Medicine 12/07/19 03/11/20 documented as of this encounter
--- OUTSIDE RECORDS SUMMARY | 2024-08-01 18:36 | XMS_ITS | Encounter Summary ---
Author Organization [facility] [place] [address] Care Team Providers Care Excel Specialist Name Role Phone Hoang Castellanos APRN Primary Care Provider [phone] Reason for Visit * Reason Onset Date Comments Medication Refill Medication Refill 12/28/2019 Encounter Details Date Type Department Care Team (Late st Contact Info) Description 12/24/2019 Refill Primary Care at [facility] 10 [facility] [place] [phone] Yisel Marroquin MD CAD (coronary artery disease) Social History Tobacco [...] Miscellaneous Notes * Telephone Encounter - Payal Ace CMA - 12/24/2019 4:24 PM EDT Medication name: [...] Coronary atherosclerosis of unspecified type of vessel, tlingit & haida or graft documented in this encounter Additional Health Concerns Infection Onset Date Last Indicated Resolved Time Rule Out COVID-19 04/03/2020 04/03/2020 04/03/2020 11:21 AM EDT Rule Out COVID-19 07/03/2020 07/03/2020 07/03/2020 4:30 PM EST documented as of this encounter Care Teams Excel Specialist Relationship Specialty Start Date End Date Hoang Castellanos, ACCOUNT EXECUTIVE KEY ACCOUNTS [address] [place] [address] PCP - General Family Medicine 03/12/20 documented as of this encounter
--- OUTSIDE RECORDS SUMMARY | 2024-08-01 18:36 | XMS_ITS | Encounter Summary ---
Author Organization Replaced By [facility] [place] [address] Care Team Providers Care Telecommunications Repairer Name Role Phone Hoang Castellanos APRN Primary Care Provider Reason for Visit * Reason Comments Follow-up Right intra-articula r distal radius and ulna fracture 02/04/20 Encounter Details Date Type Department Care Team (Late st Contact Info) Description 02/21/2020 11:30 AM EDT Office Visit Orthopaedics at [facility] [place] [address] Closed fracture of distal end of right [...] sequela documented in this encounter Care Teams Telecommunications Repairer Relationship Specialty Start Date End Date Hoang Castellanos, VISUAL C DEVELOPER [address] [place] [address] PCP - General Family Medicine 12/07/19 03/11/20 documented as of this encounter
--- OUTSIDE RECORDS SUMMARY | 2024-08-01 18:36 | XMS_ITS | Encounter Summary ---
Author Organization [facility] [place] [address] Care Team Providers Care Pricer Bagger Name Role Phone Yisel Marroquin MD Primary Care Provider Unavail able Reason for Visit * Reason Comments Medication Refill Encounter Details Date Type Department Care Team (Late st Contact Info) Description 11/20/2019 Refill Primary Care at [facility] 10 [place] [address] Ananth Wilson MD 10 [facility] [place] [address] Social History Tobacco Use Types Packs/Day Years [...] on filedocumented in this encounter Care Teams Pricer Bagger Relationship Specialty Start Date End Date Yisel Marroquin MD PCP - General General Internal Medicine 03/06/19 0 documented as of this encounter
--- OUTSIDE RECORDS SUMMARY | 2024-08-01 18:36 | XMS_ITS | Encounter Summary ---
Author Organization [facility] Address [facility] [place] [address] Care Team Providers Care Geospatial Applications Developer Name Role Phone Hoang Castellanos APRN Primary Care Provider Encounter Details Date Type Department Care Team (Latest Contact Info) Description 12/27/2019 7:25 AM EDT Laboratory Appointment Laboratory at [facility] [place] [phone] Hyperlipidemia, unspecified hyperlipidemia type; Dizzinesses; Vision changes [...] MD CHEMISTRY ORDERABLES [facility] [address] [place] [address] * Lipid Panel (Reflex Direct LDL) (12/27/2019 7:27 AM EDT) Cholesterol, Total 114 mg/dL [facility] Comment: Lower Risk: <200 mg/dL Average Risk: 200-239 mg/dL Higher Risk: >xs=434 mg/dL Triglyceride 102 mg/dL [facility] Comment: Average Risk/Lower Risk: <150 mg/dL Borderline High Risk: 150-199 mg/dL High Risk: 200-499 mg/dL Very High Risk: >kl=086 mg/dL HDL Cholesterol 38 mg/dL [facility] Comment: Males: ?? Higher Risk: <40 mg/dL Females: ?? HIgher Risk: <50 mg/dL LDL Cholesterol 56 mg/dL [facility] Comment: Lowest Risk: <100 mg/dL Lower Risk: 100-129 mg/dL Borderline High Risk: 130-159 mg/dL High Risk: 160-189 mg/dL Very High Risk: >rh=319 mg/dL Cholesterol/HDL Ratio 3.0 ratio [facility] Lipid Interpretation See Note [facility] Comment: Lipid management should be guided by a patient? s ASCVD risk, goals and preferences. ACC/AHA Guidelines recommend high intensity statin if clinical ASCVD or LDL greater than or equal to 190 mg/dL. http://tinyurl.com/MOY-CFA-Aufpczgxz Adults aged 40-75 with LDL 70-189 mg/dL should have their 10 year ASCVD risk estimated with the ACC/AHA ASCVD risk production estimator http://tools.acc.org/GPYWP-Jajl-Kqnbcepbu/ Statin should be discussed if risk greater [...] ORDERABLES [facility] [address] [place] [address] documented in this encounter Visit Diagnoses Diagnosis Hyperlipidemia, unspecified hyperlipidemia type Dizzinesses Vision changes Unspecified visual disturbance documented in this encounter Care Teams Geospatial Applications Developer Relationship Specialty Start Date End Date Hoang Castellanos, PAPER LATCHER [address] [place] [address] PCP - General Family Medicine 12/07/19 03/11/20 documented as of this encounter
--- OUTSIDE RECORDS SUMMARY | 2024-08-01 18:36 | XMS_ITS | Encounter Summary ---
Author Organization [place] [place] [address] Care Team Providers Care Family And Consumer Education Teacher Name Role Phone Hoang Castellanos APRN Primary Care Provider [phone] Encounter Details Date Type Department Care Team (Latest Contact Info) Description 02/05/2020 12:30 PM EDT Ancillary Procedure Radiology XRay at the [facility] at [facility] [address] [place] [phone] Hoang Castellanos APRN [facility] [place] [address] Right forearm pain Social History Tobacco Use [...] please contact the number below. ? Narrative 02/05/2020 12:53 PM EDT EXAMINATION: XR [...] limb documented in this encounter Care Teams Family And Consumer Education Teacher Relationship Specialty Start Date End Date Hoang Castellanos APRN [address] [place] [address] PCP - General Family Medicine 12/07/19 03/11/20 documented as of this encounter
--- OUTSIDE RECORDS SUMMARY | 2024-08-01 18:36 | XMS_ITS | Encounter Summary ---
[place] [address] Care Team Providers Care Boat Dock Operator Name Role Phone oHang Castellanos APRN Primary Care Provider [phone] Encounter Details Date Type Department Care Team (Late st Contact Info) Description 01/02/2020 Telephone Primary Care at [facility] [place] [phone] Isadora Hidalgo LPN Social History Tobacco Use [...] on filedocumented in this encounter Care Teams Boat Dock Operator Relationship Specialty Start Date End Date Hoang Castellanos APRN [address] [place] [address] PCP - General Family Medicine 12/07/19 03/11/20 documented as of this encounter
--- OUTSIDE RECORDS SUMMARY | 2024-08-01 18:36 | XMS_ITS | Encounter Summary ---
[place] [address] Care Team Providers Care Campaign Worker Name Role Phone Hoang Castellanos APRN Primary Care Provider Encounter Details Date Type Department Care Team (Latest Contact Info) Description 02/05/2020 12:55 PM EDT Ancillary Procedure Radiology XRay at the Multi-Specialty Clinic at [facility] 10 [place] [phone] Hoang Castellanos APRN 10 [facility] [place] [address] Closed fracture of distal end of right [...] contact the number below. ? Narrative 02/05/2020 1:43 PM EDT EXAMINATION: XR [...] encounter documented in this encounter Care Teams Campaign Worker Relationship Specialty Start Date End Date Hoang Castellanos APRN [address] [place] [address] PCP - General Family Medicine 12/07/19 03/11/20 documented as of this encounter
--- OUTSIDE RECORDS SUMMARY | 2024-08-01 18:36 | XMS_ITS | Encounter Summary ---
Author Organization [facility] [place] [address] Care Team Providers Care Grips Name Role Phone Hoang Castellanos APRN Primary Care Provider Encounter Details Date Type Department Care Team (Late st Contact Info) Description 03/26/2020 3:00 PM EDT Office Visit Physical Therapy at [address] [phone] Keely Childers PTA Low back pain, non-specific [...] her pain symptoms today. O: Therex: Strength/Endurance/ROM (44117) 45 min ?? ITB foam roller STM [...] non-specific documented in this encounter Care Teams Grips Relationship Specialty Start Date End Date Hoang Castellanos, PHOTO TECHNICIAN [address] [place] [address] PCP - General Family Medicine 03/12/20 documented as of this encounter
--- OUTSIDE RECORDS SUMMARY | 2024-08-01 18:36 | XMS_ITS | Encounter Summary ---
Author Organization [facility] [place] [address] Care Team Providers Care Net Fisher Name Role Phone Hoang Castellanos APRN Primary Care Provider Reason for Visit * Reason Onset Date Comments Medication Refill 03/21/2020 Encounter Details Date Type Department Care Team (Late st Contact Info) Description 03/21/2020 Refill Primary Care at [facility] 10 [place] [phone] Isadora Hidalgo LPN Social History Tobacco Use [...] Fisher Relationship Specialty Start Date End Date Hoang Castellanos, SAM [address] [place] [address] PCP - General Family Medicine 03/12/20 documented as of this encounter
--- OUTSIDE RECORDS SUMMARY | 2024-08-01 18:36 | XMS_ITS | Encounter Summary ---
Author Organization [place] [address] Care Team Providers Care Lining Inserter Name Role Phone Hoang Castellanos APRN Primary Care Provider Reason for Visit * Reason Comments Follow-up Right intra-articula r distal radius fracture 02/04/20 Encounter Details Date Type Department Care Team (Late st Contact Info) Description 03/19/2020 10:45 AM EDT Office Visit Orthopaedics at [facility] 10 [place] [address] Talita Hernandez MD [address] [facility] [place] [address] Closed fracture of distal end of right [...] ? Electronically signed by: Bandar Tejeda MD, [facility] ([phone]), at 04/07/2020 8:21 AM Narrative 04/07/2020 8:21 [...] below. Electronically signed by: Bandar Tejeda MD, [facility]([phone]), at 04/07/2020 8:21 AM Talita Hernandez MD IMG DX ORDERABLES documented in this encounter Visit Diagnoses Diagnosis Closed fracture of distal end of right radius, unspecified fracture morphology, sequela Closed fracture of distal end of right radius, unspecified fracture morphology, sequela documented in this encounter Care Teams Lining Inserter Relationship Specialty Start Date End Date Hoang Castellanos, SAM [address] [place] [place] [address] PCP - General Family Medicine 03/12/20 documented as of this encounter
--- OUTSIDE RECORDS SUMMARY | 2024-08-01 18:36 | XMS_ITS | Encounter Summary ---
Author Organization [facility] [place] [address] Care Team Providers Care Poultry And Fish Butcher Name Role Phone Hoang Castellanos APRN Primary Care Provider Reason for Referral * Consultation (Routine) - Specialty Diagnoses / Procedures Referred By Contdavide t Referred To Contact Orthopaedics Diagnoses Closed fracture of distal end of right radius, unspecified fracture morphology, initial encounter Hoang Castellanos APRN [address] [place] [address] [facility] [place] [address] Referral ID Status Reason Start Date Expiration Date Visits Requested Visits Authorized [id number] Specialty Service Requested 02/05/2020 02/04/2021 6 6 * Diagnostic Test (Routine) - Closed Specialty Diagnoses / Procedures Referred By Contac t Referred To Contact Radiology Diagnoses Chronic right-sided low back pain with right-sided sciatica Procedures MRI Lumbar Spine wo Contrast (Generic) Hoang Castellanos APRN [address] [facility] [place] [address] [facility] [address] [place] [address] Referral ID Status Reason Start Date Expiration Date V isits Requested Visits Authorized [id number] Closed Specialty Service Requested 02/05/2020 08/07/2021 1 1 Reason for Visit * Reason Comments Diabetes Hypertension Right Arm Pain Encounter Details Date Type Department Care Team (Late st Contact Info) Description 02/05/2020 11:30 AM EDT Office Visit Primary [facility] at [facility] [address] [place] [address] Hoang Castellanos, SAM [address] FAMILY [facility] [place], [place] [phone] Closed fracture of distal end of right [...] a 59 y.o. female presenting to the [facility] Primary Care Clinic HPI Patient presents today [...] MRI c-spine 04/2009 MRI lumbar 2012 Functional alevism program had helped but that was prior [...] the clinical situation (Reference- Sugark Et Al, [id number]). Findings: (Prevalence in patients without low back pain), discdegeneration (decreased T2 signal, height loss, bulge) (91%), disc T2-signal loss(83%), disc height loss (56%), disc bulge (64%), disc protrusion (32%), annularfissure (38%). Thank you for letting us participate in the care of this patient. Forquestions regarding this report, please contact the number below. Hoang Castellanos APRN IMG MRI ORDERABLES * [...] please contact the number below. Hoang Castellanos WATCH CASE POLISHER IMG DX ORDERABLES * XR Forearm Right [...] contact the number below. Electronically signed by: ANGUS Cortez [facility]([phone]), at 02/05/2020 12:53 PM Hoang Castellanos APRN IMG DX ORDERABLES [...] sciatica documented in this encounter Care Teams Poultry And Fish Butcher Relationship Specialty Start Date End Date Hoang Castellanos APRN [address] [place] [place] [address] PCP - General Family Medicine 12/07/19 03/11/20 documented as of this encounter
--- OUTSIDE RECORDS SUMMARY | 2024-08-01 18:36 | XMS_ITS | Encounter Summary ---
[place] [address] Care Team Providers Care Windows 7 Deployment Lead Name Role Phone Hoang Castellanos APRN Primary Care Provider Encounter Details Date Type Department Care Team (Late st Contact Info) Description 02/18/2020 Telephone Primary Care at [facility] 10 [facility] [place] [phone] Hoang Castellanos APRN [address] [place] [address] Social History Tobacco Use Types Packs/Day Years [...] Grace Lockhart - 02/21/2020 3:11 PM EDT [facility] aware. They will DC the order. * Telephone Encounter - Isadora Hidalgo LPN - 02/21/2020 1:22 PM EDT Received another call from [facility] they want to know if we still working to try and get this patches for Jeannie they want an answer either way * Telephone Encounter - Grace Lockhart - 02/18/2020 2:44 PM EDT Lalit Bolton I received a call from [facility] about Jeannie's Lidocaine 5% patch. The insurance denied it (denial is under scanned docs) so they are wondering if this is just being canceled or if you were going to try something different? documented in this encounter Plan of Treatment Not on file documented as of this encounter Visit Diagnoses Not on filedocumented in this encounter Care Teams Windows 7 Deployment Lead Relationship Specialty Start Date End Date Hoang Castellanos, BRAKE LINING DRILLER [address] [place] [address] PCP - General Family Medicine 12/07/19 03/11/20 documented as of this encounter
--- OUTSIDE RECORDS SUMMARY | 2024-08-01 18:36 | XMS_ITS | Encounter Summary ---
[place] [address] Care Team Providers Care Packing Attendant Name Role Phone Hoang Castellanos APRN Primary Care Provider Encounter Details Date Type Department Care Team (Late st Contact Info) Description 12/28/2019 Telephone Primary Care at [facility] [address] [place] [phone] Isadora Hidalgo LPN Social History Tobacco Use [...] APRN Sent: 12/27/2019 2:11 PM EDT To: [facility] Primary Care Nurse Can we please see if we can add on A1c-I didn't realized the previous order on 12/22. documented in this encounter Plan of Treatment Not on file documented as of this encounter Visit Diagnoses Not on filedocumented in this encounter Care Teams Packing Attendant Relationship Specialty Start Date End Date Hoang Castellanos APRN [address] [place] [address] PCP - General Family Medicine 12/07/19 03/11/20 documented as of this encounter
--- OUTSIDE RECORDS SUMMARY | 2024-08-01 18:36 | XMS_ITS | Encounter Summary ---
[place] [address] Care Team Providers Care Safe Technician Name Role Phone Hoang Castellanos APRN Primary Care Provider [phone] Encounter Details Date Type Department Care Team (Latest Contact Info) Description 02/12/2020 10:00 AM EDT Ancillary Procedure Radiology XRay at the Multi-Specialty Clinic at [facility] 10 [facility] [place] [address] Talita Hernandez MD [address] [address] [place] [address] Other closed intra-articular fracture of distal end [...] encounter documented in this encounter Care Teams Safe Technician Relationship Specialty Start Date End Date Hoang Castellanos, SAM [address] [place] [address] PCP - General Family Medicine 12/07/19 03/11/20 documented as of this encounter
--- OUTSIDE RECORDS SUMMARY | 2024-08-01 18:36 | XMS_ITS | Encounter Summary ---
Author Organization [facility] [place] [address] Care Team Providers Care Plant Technical Specialist Name Role Phone Hoang Castellanos APRN Primary Care Provider Reason for Visit * Reason Comments Follow-up Right intra-articula r distal radius and ulna fracture 02/04/20 Encounter Details Date Type Department Care Team (Late st Contact Info) Description 02/12/2020 10:15 AM EDT Office Visit Orthopaedics at [facility] 10 [facility] [place] [address] Talita Hernandez MD [address] [facility] [address] [place] [address] Closed fracture of distal end of right [...] sequela documented in this encounter Care Teams Plant Technical Specialist Relationship Specialty Start Date End Date Hoang Castellanos, SAM [address] [place] [address] PCP - General Family Medicine 12/07/19 03/11/20 documented as of this encounter
--- OUTSIDE RECORDS SUMMARY | 2024-08-01 18:36 | XMS_ITS | Encounter Summary ---
Author Organization [facility] [place] [address] Care Team Providers Care Coat Cutter Name Role Phone Hoang Castellanos APRN Primary Care Provider Reason for Visit * Reason Onset Date Comments Medication Refill 03/12/2020 Encounter Details Date Type Department Care Team (Late st Contact Info) Description 03/12/2020 Refill Primary Care at [facility] 10 [facility] [place] [phone] Isadora Hidalgo LPN Dizziness; Chronic right-sided low [...] to send the Rx for walker to [facility] ortho fax # [phone], this way patient doesn't have to pay out of pocket. Rx printed and faxed to [facility] ortho documented in this encounter Plan of Treatment Not on file documented as of this encounter Visit Diagnoses Diagnosis Dizziness Dizziness and giddiness Chronic right-sided low back pain without sciatica documented in this encounter Care Teams Coat Cutter Relationship Specialty Start Date End Date Hoang Castellanos APRN [address] [place] [address] PCP - General Family Medicine 03/12/20 documented as of this encounter
--- OUTSIDE RECORDS SUMMARY | 2024-08-01 18:36 | XMS_ITS | Encounter Summary ---
[place] [address] Care Team Providers Care Yoke Presser Name Role Phone Hoang Castellanos APRN Primary Care Provider Encounter Details Date Type Department Care Team (Late st Contact Info) Description 03/12/2020 [place] [phone] Shakir Mark RN Social History Tobacco Use [...] on filedocumented in this encounter Care Teams Yoke Presser Relationship Specialty Start Date End Date Hoang Castellanos APRN [address] [place] [address] PCP - General Family Medicine 03/12/20 documented as of this encounter
--- OUTSIDE RECORDS SUMMARY | 2024-08-01 18:36 | XMS_ITS | Encounter Summary ---
[place] [address] Care Team Providers Care Livestock Caretaker Name Role Phone Hoang Castellanos APRN Primary Care Provider Encounter Details Date Type Department Care Team (Late st Contact Info) Description 02/26/2020 Telephone Primary Care at [facility] 10 [place] [phone] Devi Mccormick RN Social History Tobacco Use [...] filedocumented in this encounter Care Teams Livestock Caretaker Relationship Specialty Start Date End Date Hoang Castellanos APRN [address] [place] [address] PCP - General Family Medicine 12/07/19 03/11/20 documented as of this encounter
--- OUTSIDE RECORDS SUMMARY | 2024-08-01 18:36 | XMS_ITS | Encounter Summary ---
[place] [address] Care Team Providers Care Bristle Machine Operator Name Role Phone Hoang Castellanos APRN Primary Care Provider Encounter Details Date Type Department Care Team (Late st Contact Info) Description 03/04/2020 Orders Only Orthopaedics at [facility] 10 [place] [address] Talita Hernandez MD 10 [facility] [place] [address] Closed fracture of distal end of right [...] Primary documented in this encounter Care Teams Bristle Machine Operator Relationship Specialty Start Date End Date Hoang Castellanos APRN [address] [address] PCP - General Family Medicine 12/07/19 03/11/20 documented as of this encounter
--- OUTSIDE RECORDS SUMMARY | 2024-08-01 18:36 | XMS_ITS | Encounter Summary ---
[place] [address] Care Team Providers Care Putty Mixer And Applier Name Role Phone Yisel Marroquin MD Primary Care Provider Unavail able Reason for Visit * Reason Comments Medication Refill Encounter Details Date Type Department Care Team (Late st Contact Info) Description 11/26/2019 Refill Primary Care at [facility] 10 [place] [phone] Yisel Marroquin MD Social History Tobacco Use [...] on filedocumented in this encounter Care Teams Putty Mixer And Applier Relationship Specialty Start Date End Date Yisel Marroquin MD PCP - General General Internal Medicine 03/06/19 5/14/2 0 documented as of this encounter
--- OUTSIDE RECORDS SUMMARY | 2024-08-01 18:36 | XMS_ITS | Encounter Summary ---
[place] [address] Care Team Providers Care Scientologist Name Role Phone Hoang Castellanos APRN Primary Care Provider [phone] Reason for Visit * Reason Onset Date Comments Medication Refill 04/01/2020 Encounter Details Date Type Department Care Team (Late st Contact Info) Description 04/01/2020 Refill Primary Care at [facility] 10 [facility] [place] [phone] Isadora Hidalgo LPN Age-related osteoporosis without current [...] 1:54 PM EDT Received a fax from [facility] requesting an Rx for Fosamax, Last Prescription [...] osteoporosis documented in this encounter Care Teams Scientologist Relationship Specialty Start Date End Date Hoang Castellanos, MEDICATION RECONCILIATION TECHNICIAN [address] [place] [address] PCP - General Family Medicine 03/12/20 documented as of this encounter
--- OUTSIDE RECORDS SUMMARY | 2024-08-01 18:36 | XMS_ITS | Encounter Summary ---
[place] [address] Care Team Providers Care Performing Artist Name Role Phone Hoang Castellanos APRN Primary Care Provider Encounter Details Date Type Department Care Team (Latest Contact Info) Description 03/19/2020 10:30 AM EDT Ancillary Procedure Radiology XRay at the [facility] at [facility] 10 [facility] [place] [address] Talita Hernandez MD 10 [facility] [address] [place] [address] Closed fracture of distal end of right [...] sequela documented in this encounter Care Teams Performing Artist Relationship Specialty Start Date End Date Hoang Castellanos, SAM [address] [place] [address] PCP - General Family Medicine 03/12/20 documented as of this encounter
--- OUTSIDE RECORDS SUMMARY | 2024-08-01 18:36 | XMS_ITS | Encounter Summary ---
Author Organization [place] [address] Care Team Providers Care Traveling Inventory Associate Name Role Phone Hoang Castellanos APRN Primary Care Provider Encounter Details Date Type Department Care Team (Late st Contact Info) Description 04/03/2020 Telephone Primary Care at [facility] [place] [phone] Jeannie Luciano, RN Social History Tobacco Use [...] 04/03/2020 9:41 AM EDT Pt arrived at [facility] and screened positive for COVID like symptoms; [...] of or healthcare workers at group homes/shelters, group home facilities or termite exterminator helper care facilities (LTCFs); and all first responders. [] For patients with an [facility] primary care provider (PCP), we perform asymptomatic screening requiredfor school, work, or travel. 3. PATIENT REQUEST [] Patient does not meet above criteria but is requesting testing. All patients requesting testing will need to be referred below to [facility] prior to scheduling. PLAN [] Patient scheduled for an appointment with provider [] OV []TH [] Patient declined provider appointment [] Patient referred to [facility] for testing (send signed note to [facility]) [] Triage note sent to provider for input Patient instructions: documented in this encounter Plan of Treatment Not on file documented as of this encounter Visit Diagnoses Diagnosis Suspected COVID-19 virus infection documented in this encounter Care Teams Traveling Inventory Associate Relationship Specialty Start Date End Date Hoang Castellanos APRN [address] [place] [address] PCP - General Family Medicine 03/12/20 documented as of this encounter
--- OUTSIDE RECORDS SUMMARY | 2024-08-01 18:36 | XMS_ITS | Encounter Summary ---
Author Organization [facility] [place] [address] Care Team Providers Care Bond Writer Name Role Phone Hoang Castellanos APRN Primary Care Provider Reason for Visit * Reason Comments Follow Up Fracture RIGHT distal radius intra-articular fracture 02/04/20 Encounter Details Date Type Department Care Team (Late st Contact Info) Description 02/05/2020 1:00 PM EDT Office Visit Orthopaedics at [facility] [place] [address] Closed fracture of distal end of right [...] encounter documented in this encounter Care Teams Bond Writer Relationship Specialty Start Date End Date Hoang Castellanos, BLAST HOLE DRILLER [address] [place] [address] PCP - General Family Medicine 12/07/19 03/11/20 documented as of this encounter
--- OUTSIDE RECORDS SUMMARY | 2024-08-01 18:36 | XMS_ITS | Encounter Summary ---
[place] [address] Care Team Providers Care Human Resources District Manager Name Role Phone Yisel Marroquin MD Primary Care Provider Unavail able Reason for Visit * Reason Comments Medication Refill Encounter Details Date Type Department Care Team (Late st Contact Info) Description 11/08/2019 Refill Primary Care at [facility] 10 [place] [phone] Yisel Marroquin MD Social History Tobacco Use [...] Notes * Telephone Encounter - Meena Galloway [facility] - 11/08/2019 2:04 PM EDT Incruse Ellipta [...] on filedocumented in this encounter Care Teams Human Resources District Manager Relationship Specialty Start Date End Date Yisel Marroquin MD PCP - General General Internal Medicine 03/06/19 0 documented as of this encounter
--- OUTSIDE RECORDS SUMMARY | 2024-08-01 18:36 | XMS_ITS | Encounter Summary ---
Author Organization [place] [address] Care Team Providers Care Fisheries Director Name Role Phone Hoang Castellanos APRN Primary Care Provider Encounter Details Date Type Department Care Team (Latest Contact Info) Description 12/26/2019 10:00 AM EDT TH Visit (TeleHealth) Primary Care at [facility] 10 [facility] [place] [phone] Hoang Castellanos APRN 10 [facility] [place] [address] Benign essential hypertension; Type 2 diabetes mellitus [...] a 59 y.o. female presenting to the [facility] Primary [facility] HPI Mental health condition Dr. Vera and case mgr, Sherri Fuller-talked to them this morning Has [...] type documented in this encounter Care Teams Fisheries Director Relationship Specialty Start Date End Date Hoang Castellanos APRN [address] [place] [address] PCP - General Family Medicine 12/07/19 03/11/20 documented as of this encounter
--- OUTSIDE RECORDS SUMMARY | 2024-08-01 18:36 | XMS_ITS | Encounter Summary ---
Author Organization [facility] [place] [address] Care Team Providers Care Power And Recovery Shift Engineer Name Role Phone Hoang Castellanos APRN Primary Care Provider Encounter Details Date Type Department Care Team (Late st Contact Info) Description 03/12/2020 1:00 PM EDT Office Visit Physical Therapy at [address] [phone] Karl Spring, PT Low back pain, non-specific [...] primary care and Orth opaedics over at [facility]. She states the back has gradually improved [...] most recent radiology report only, please see [facility] for full report and imaging history) [...] non-specific documented in this encounter Care Teams Power And Recovery Shift Engineer Relationship Specialty Start Date End Date Hoang Castellanos, ELECTRICIAN SUBSTATION SUPERVISOR [address] [place] [address] PCP - General Family Medicine 03/12/20 documented as of this encounter
--- OUTSIDE RECORDS SUMMARY | 2024-08-01 18:36 | XMS_ITS | Encounter Summary ---
[place] [address] Care Team Providers Care Roll Dough Divider Name Role Phone Hoang Castellanos APRN Primary Care Provider Encounter Details Date Type Department Care Team (Late st Contact Info) Description 01/18/2020 Orders [place] [address] Priya Charles APRN [facility] [address] Iron deficiency Social History Tobacco Use Types [...] unspecified documented in this encounter Care Teams Roll Dough Divider Relationship Specialty Start Date End Date Hoang Castellanos APRN [address] [place] [address] PCP - General Family Medicine 12/07/19 03/11/20 documented as of this encounter
--- OUTSIDE RECORDS SUMMARY | 2024-08-01 18:36 | XMS_ITS | Encounter Summary ---
Author Organization [place] [address] Care Team Providers Care Cardiovascular Lab Director Name Role Phone Hoang Castellanos APRN Primary Care Provider [phone] Reason for Visit * Reason Onset Date Comments Medication Refill 03/12/2020 Encounter Details Date Type Department Care Team (Late st Contact Info) Description 03/12/2020 Refill Primary Care at [facility] 10 [facility] [place] [phone] Hoang Castellanos APRN [address] [place] [address] Dizziness; Chronic right-sided low back pain without [...] Hidalgo LPN - 03/12/2020 11:25 AM EDT [facility] [place]o call they need patient's HT, WT, and different diagnosis.new Rx send with all information documented in this encounter Plan of Treatment Not on file documented as of this encounter Visit Diagnoses Diagnosis Dizziness Dizziness and giddiness Chronic right-sided low back pain without sciatica documented in this encounter Care Teams Cardiovascular Lab Director Relationship Specialty Start Date End Date Hoang Castellanos APRN [address] [place] [address] PCP - General Family Medicine 03/12/20 documented as of this encounter
--- OUTSIDE RECORDS SUMMARY | 2024-08-01 18:36 | XMS_ITS | Encounter Summary ---
Author Organization [facility] [place] [address] Care Team Providers Care Transcribing Machine Operator Name Role Phone Hoang Castellanos APRN Primary Care Provider Encounter Details Date Type Department Care Team (Late st Contact Info) Description 12/28/2019 Notes Only Primary Care at [facility] 10 [place] [phone] Isadora Hidalgo LPN Social History Tobacco Use [...] on filedocumented in this encounter Care Teams Transcribing Machine Operator Relationship Specialty Start Date End Date Hoang Castellanos APRN [address] [facility] [place] [address] PCP - General Family Medicine 12/07/19 03/11/20 documented as of this encounter
--- OUTSIDE RECORDS SUMMARY | 2024-08-01 18:36 | XMS_ITS | Encounter Summary ---
Author Organization [facility] [place] [address] Care Team Providers Care Sharepoint Net Developer Name Role Phone Hoang Castellanos APRN Primary Care Provider Encounter Details Date Type Department Care Team (Late st Contact Info) Description 03/08/2020 Telephone Primary Care at [facility] 10 [facility] [phone] Hoang Castellanos APRN [address] [place] [address] Social History Tobacco Use Types Packs/Day Years [...] able to route a message to the [id number] pool to coordinate and authorize testing. * Telephone Encounter - Hoang Castellanos APRN - 03/08/2020 8:07 AM EDT call center professional note: Pt with hx of chronic bronchitis, [...] on filedocumented in this encounter Care Teams Sharepoint Net Developer Relationship Specialty Start Date End Date Hoang Castellanos APRN [address] [place] [address] PCP - General Family Medicine 12/07/19 03/11/20 documented as of this encounter
--- OUTSIDE RECORDS SUMMARY | 2024-08-01 18:37 | XMS_ITS | Encounter Summary ---
Author Organization [facility] [place] [address] Care Team Providers Care Picking Crew Supervisor Name Role Phone Yisel Marroquin MD Primary Care Provider Unavail able Encounter Details Date Type Department Care Team (Late st Contact Info) Description 08/24/2019 Orders Only [facility] at [facility] 10 [facility] [place] [address] Meli Jaimes, STRIPER MACHINE [address] DR [place] [address] Social History Tobacco Use Types Packs/Day Years [...] on filedocumented in this encounter Care Teams Picking Crew Supervisor Relationship Specialty Start Date End Date Yisel Marroquin MD PCP - General General Internal Medicine 03/06/19 0 documented as of this encounter
--- OUTSIDE RECORDS SUMMARY | 2024-08-01 18:37 | XMS_ITS | Encounter Summary ---
[place] [address] Care Team Providers Care Subway Car Repairer Name Role Phone Yisel Marroquin MD Primary Care Provider Unavail able Encounter Details Date Type Department Care Team (Late st Contact Info) Description 05/23/2019 Telephone Primary Care at [facility] [place] [address] Shannon Chung, RN Social History Tobacco Use [...] called asking for rx to sent to [facility]. rx sent * Telephone Encounter - Shannon Chung RN - 05/25/2019 5:11 PM EDT Discussed with PCP, pt instructed to increase lisinopril to 15mg QD, continue to monitor with goal to <120/80 * Telephone Encounter - Shannon Chung RN - 05/23/2019 3:34 PM EDT Jeannie called to give update of her BP. She has this taken once a week at [facility]. She states that it has been really good other than 05/22/19. Other BP has been in the 140s/70s. On 05/22: 164/85. She contributes this to having pneumonia, anxiety, and stress. PCP notified. documented in this encounter Plan of Treatment Not on file documented as of this encounter Visit Diagnoses Not on filedocumented in this encounter Care Teams Subway Car Repairer Relationship Specialty Start Date End Date Yisel Marroquin MD PCP - General General Internal Medicine 03/06/19 0 documented as of this encounter
--- OUTSIDE RECORDS SUMMARY | 2024-08-01 18:37 | XMS_ITS | Encounter Summary ---
Author Organization [facility] Address [facility] [place] [address] Care Team Providers Care Tax Analyst Name Role Phone Yisel Marroquin MD Primary Care Provider Unavail able Encounter Details Date Type Department Care Team (Latest Contact Info) Description 02/07/2019 12:30 PM EDT Laboratory Appointment Laboratory at [facility] [place] [address] Disorder of iron metabolism; Status post bariatric [...] Hemoglobin A1c (02/07/2019 12:41 PM EDT) Hemoglobin A1c 5.9(H) 4.3 - 5.6 % [facility] Estimated Average Glucose 123 mg/dL [facility] Blood specimen (specimen) 02/07/2019 12:41 PM EDT 02/07/2019 2:07 PM EDT Narrative Resulting Agency Comment Spec In Lab / APD Sidra Del Toro AUTO SALVAGE WORKER CHEMISTRY ORDERAB LES [facility] [address] [place] [address] * Folate, serum (02/07/2019 12:41 PM EDT) Folate 8.6 4.8 - 24.2 ng/mL [facility] Blood specimen (specimen) 02/07/2019 12:41 PM EDT 02/07/2019 3:55 PM EDT Narrative Resulting Agency Comment Spec In Lab / APD Sidra Bray Alverto SAM CHEMISTRY ORDERAB LES Performing Organization Address [facility]/ZIP Co de Phone Number [facility] [place] [address] * Vitamin D, 25-Hydroxy (02/07/2019 12:41 PM EDT) Vitamin D Total 25 OH 36 30 - 100 ng/mL [facility] Comment: Deficient <10 ng/mL Insufficient 10 to 29 ng/mL Sufficient 30 to 100 ng/mL Potential Intoxication >100 ng/mL According to the US National Osteoporosis Foundation, Vitamin D concentrations >30 ng/mL are sufficient to protect bone health. ??The National Kidney Foundation has similarly stated that patients with Vitamin D concentrations <30ng/mL should be considered to be insufficient or deficient. http://Vidible/nkf-guidelines http://Vidible/nejm-VitD The IDS iSYS Vitamin D Immunoassay detects both 25-OH Vitamin D2 and 25-OH Vitamin D3, but only a total Vitamin D concentration is reported. Blood specimen (specimen) 02/07/2019 12:41 PM EDT 02/08/2019 7:27 AM EDT Narrative Resulting Agency Comment Spec In Lab / APD Sidra T Alverto VARGAS CHEMISTRY ORDERAB LES Performing Organization Address [facility] Co de Phone Number [facility] [place] [address] * Vitamin B1, whole blood (02/07/2019 12:41 PM EDT) Vit B1 Lvl Wb (NOVEMBER) 128 70 - 180 nmol/L [facility] Comment: ADDITIONAL INFORMATION This test was developed and its performance characteristics determined by [facility] in a manner consistent with CLIA requirements. This test has not been cleared or approved by the U.S. Food and Drug Administration. Test Performed by: [facility] [address] [place] [address] Blood specimen (specimen) 02/07/2019 12:41 PM EDT 02/07/2019 5:37 PM EDT Narrative Resulting Agency Comment Spec In Lab / APD Sidra Del Toro AUTO SALVAGE WORKER LAB SEND OUT ORDE RABLES [facility] [address] [place] [address] * Vitamin B12 (02/07/2019 12:41 PM EDT) Vitamin B12 603 232 - 1,245 pg/mL [facility] Blood specimen (specimen) 02/07/2019 12:41 PM EDT 02/07/2019 3:55 PM EDT Narrative Resulting Agency Comment Spec In Lab / APD Sidra Del Toro AUTO SALVAGE WORKER CHEMISTRY ORDERAB LES Performing Organization Address City/[facility]/ZIP Co de Phone Number [facility] [place] [address] * (ABNORMAL) PTH (02/07/2019 12:41 PM EDT) Parathyroid Hormone 71(H) 15 - 65 pg/mL [facility] Blood specimen (specimen) 02/07/2019 12:41 PM EDT 02/07/2019 3:55 PM EDT Narrative Resulting Agency Comment Spec In Lab / APD Sidra Del Toro AUTO SALVAGE WORKER CHEMISTRY ORDERAB LES Performing Organization Address City/[facility]/ZIP Co de Phone Number [facility] [place] [address] * (ABNORMAL) Ferritin (02/07/2019 12:41 PM EDT) Ferritin 19(L) 30 - 400 ng/mL [facility] Comment: Pediatric reference ranges not verified at [facility], interpret with caution. Reference ranges for females greater than 50 years of age approach values for men, i.e., 30-400 ng/mL. Blood specimen (specimen) 02/07/2019 12:41 PM EDT 02/07/2019 2:05 PM EDT Narrative Resulting Agency Comment Spec In Lab / APD Sidra Del Toro AUTO SALVAGE WORKER CHEMISTRY ORDERAB LES Performing Organization Address City/[facility] Co de Phone Number [facility]AT[facility] [address] [place] [address] * (ABNORMAL) Iron and TIBC (02/07/2019 12:41 PM EDT) Iron 64 30 - 150 mcg/dL [facility] TIBC 351 250 - 450 mcg/dL [facility] Iron Saturation 18(L) 20 - 50 % [facility] Blood specimen (specimen) 02/07/2019 12:41 PM EDT 02/07/2019 2:05 PM EDT Narrative Resulting Agency Comment Spec In Lab / APD Sidra Del Toro AUTO SALVAGE WORKER CHEMISTRY ORDERAB LES Performing Organization Address [facility] Co de Phone Number LABORATORY [address] [place] [address] documented in this encounter Visit Diagnoses Diagnosis Disorder of iron metabolism Other disorders of iron metabolism Status post bariatric surgery Bariatric surgery status Intestinal malabsorption, unspecified type Gastroesophageal reflux disease, esophagitis presence not specified Vitamin D deficiency Unspecified vitamin D deficiency History of diabetes mellitus Personal history of other endocrine, metabolic, and immunity disorders documented in this encounter Care Teams Tax Analyst Relationship Specialty Start Date End Date Yisel Marroquin MD PCP - General 11/13/18 03/05/19 documented as of this encounter
--- OUTSIDE RECORDS SUMMARY | 2024-08-01 18:37 | XMS_ITS | Encounter Summary ---
[place] [address] Care Team Providers Care Brazing Machine Setter Name Role Phone Yisel Marroquin MD Primary Care Provider Unavail able Reason for Visit * Reason Onset Date Comments Medication Refill 12/14/2018 Encounter Details Date Type Department Care Team (Late st Contact Info) Description 12/14/2018 Refill Primary Care at [facility] 10 [place] [phone] Yisel Marroquin MD B12 deficiency Social History Tobacco Use Types [...] Cruz RN - 12/14/2018 5:25 PM EDT [facility] called because they received a vitamin B12 1000mcg rx. The rx was for QD, but is usually for every week. 4 tabs were sent in. Rx fixed and sent to pharmacy. documented in this encounter Plan of Treatment Not on file documented as of this encounter Visit Diagnoses Diagnosis B12 deficiency Other B-complex deficiencies documented in this encounter Care Teams Brazing Machine Setter Relationship Specialty Start Date End Date Yisel Marroquin MD PCP - General 11/13/18 03/05/19 documented as of this encounter
--- OUTSIDE RECORDS SUMMARY | 2024-08-01 18:37 | XMS_ITS | Encounter Summary ---
Author Organization [facility] [place] [address] Care Team Providers Care Electronic Imaging System Operator Name Role Phone Yisel Marroquin MD Primary Care Provider Unavail able Encounter Details Date Type Department Care Team (Late st Contact Info) Description 10/19/2018 Abstract [facility] Conversion Results [address] [place] [address] Apd Conversion, Flowsheet Provider, Social History Tobacco [...] on filedocumented in this encounter Care Teams Electronic Imaging System Operator Relationship Specialty Start Date End Date Yisel Marroquin MD PCP - General 11/13/18 03/05/19 documented as of this encounter
--- OUTSIDE RECORDS SUMMARY | 2024-08-01 18:37 | XMS_ITS | Encounter Summary ---
Author Organization [facility] [place] [address] Care Team Providers Care Rib Chopper Name Role Phone Yisel Marroquin MD Primary Care Provider Unavail able Encounter Details Date Type Department Care Team (Late st Contact Info) Description 07/24/2019 Telephone Primary Care at [facility] [address] [place] [address] Meli Jaimes, IT SOLUTIONS SALES CONSULTANT [address] [place] [address] Social History Tobacco Use Types Packs/Day Years [...] 07/24/2019 9:43 AM EST Fax received from [employer] stating that the Spiriva is not on her formulary. They are asking for the prescription to be changed to incruse ellipta. Ok to switch? documented in this encounter Plan of Treatment Not on file documented as of this encounter Visit Diagnoses Not on filedocumented in this encounter Care Teams Rib Chopper Relationship Specialty Start Date End Date Yisel Marroquin MD PCP - General General Internal Medicine 03/06/19 0 documented as of this encounter
--- OUTSIDE RECORDS SUMMARY | 2024-08-01 18:37 | XMS_ITS | Encounter Summary ---
Author Organization [facility] [place] [address] Care Team Providers Care Filament Shaper Name Role Phone Yisel Marroquin MD Primary Care Provider Unavail able Reason for Visit * Reason Onset Date Comments Medication Refill 05/18/2019 Encounter Details Date Type Department Care Team (Late st Contact Info) Description 05/18/2019 Refill Primary Care at [place] [phone] Yisel Marroquin MD Social History Tobacco Use [...] Fill Date: 06/12/2018 Number Dispensed and Refills: #11/06 Last Related Office Visit: 05/04/2019 Upcoming Appointment: [...] on filedocumented in this encounter Care Teams Filament Shaper Relationship Specialty Start Date End Date Yisel Marroquin MD PCP - General General Internal Medicine 03/06/19 5 0 documented as of this encounter
--- OUTSIDE RECORDS SUMMARY | 2024-08-01 18:37 | XMS_ITS | Encounter Summary ---
Author Organization [facility] [place] [address] Care Team Providers Care Fund Development Manager Name Role Phone Yisel Marroquin MD Primary Care Provider Unavail able Reason for Visit * Reason Comments Follow-up Encounter Details Date Type Department Care Team (Late st Contact Info) Description 04/11/2019 11:30 AM EDT Office Visit Primary Care at [facility] [place] [phone] Yisel Marroquin MD Routine history and physical examination of adult; [...] more? Visit our health information library at [email or web address]. You can also view health information on AOL, your personal patient account. Log in or sign uptoday. Enter M541 in the search box to learn more about Colon Cancer Screening: Care Instructions. Current as of: July 12, 2018 Content Version: 12. ?? [id number] [employer]. Care instructions adapted under license by [facility]. If you have questions about a medical condition or this instruction, always ask your healthcare professional. [employer] disclaims any warranty or liability for your [...] alert, oriented, no distress, obese white female, embedded case manager at side HEENT: Dry mucus membranes. CV: [...] adult Routine general medical examination at a [facility] care facility Age-related osteoporosis without current pathological fracture Senile osteoporosis documented in this encounter Care Teams Fund Development Manager Relationship Specialty Start Date End Date Yisel Marroquin MD PCP - General General Internal Medicine 03/06/19 0 documented as of this encounter
--- OUTSIDE RECORDS SUMMARY | 2024-08-01 18:37 | XMS_ITS | Encounter Summary ---
Author Organization [facility] [place] [address] Care Team Providers Care Data Base Administrator Name Role Phone Yisel Marroquin MD Primary Care Provider Unavail able Encounter Details Date Type Department Care Team (Late st Contact Info) Description 12/11/2018 Orders Only Primary Care at [facility] [address] [place] [address] Ruth Rene Social History Tobacco Use Types [...] filedocumented in this encounter Care Teams Data Base Administrator Relationship Specialty Start Date End Date Yisel Marroquin MD PCP - General 11/13/18 03/05/19 documented as of this encounter
--- OUTSIDE RECORDS SUMMARY | 2024-08-01 18:37 | XMS_ITS | Encounter Summary ---
[place] [address] Care Team Providers Care Last Repairer Helper Name Role Phone Yisel Marroquin MD Primary Care Provider Unavail able Encounter Details Date Type Department Care Team (Late st Contact Info) Description 04/12/2019 Telephone Primary Care at [facility] [address] [place] [address] Shannon Cruz RN Social History Tobacco Use [...] on filedocumented in this encounter Care Teams Last Repairer Helper Relationship Specialty Start Date End Date Yisel Marroquin MD PCP - General General Internal Medicine 03/06/19 0 documented as of this encounter
--- OUTSIDE RECORDS SUMMARY | 2024-08-01 18:37 | XMS_ITS | Encounter Summary ---
Author Organization [facility] [place] [address] Care Team Providers Care Dye House Vat Worker Name Role Phone Yisel Marroquin MD Primary Care Provider Unavail able Reason for Visit * Reason Onset Date Comments Medication Refill Medication Refill 12/05/2018 Encounter Details Date Type Department Care Team (Late st Contact Info) Description 12/04/2018 Refill Primary Care at [facility] [address] [place] [address] Yisel Marroquin MD Social History Tobacco Use [...] on filedocumented in this encounter Care Teams Dye House Vat Worker Relationship Specialty Start Date End Date Yisel Marroquin MD PCP - General 11/13/18 03/05/19 documented as of this encounter
--- OUTSIDE RECORDS SUMMARY | 2024-08-01 18:37 | XMS_ITS | Encounter Summary ---
[place] [address] Care Team Providers Care Assembler Rubber Footwear Name Role Phone Yisel Marroquin MD Primary Care Provider Unavail able Reason for Visit * Reason Comments Rash Encounter Details Date Type Department Care Team (Late st Contact Info) Description 01/05/2019 10:45 AM EDT Office Visit Primary Care at [facility] [place] [phone] Yisel Marroquin MD Dermatitis Social History Tobacco Use Types Packs/Day [...] Diagnoses Dermatitis Yisel Marroquin MD Internal Medicine [facility] documented in this encounter Plan of Treatment Not on file documented as of this encounter Visit Diagnoses Diagnosis Dermatitis Contact dermatitis and other eczema, due to unspecified cause documented in this encounter Care Teams Assembler Rubber Footwear Relationship Specialty Start Date End Date Yisel Marroquin MD PCP - General 11/13/18 03/05/19 documented as of this encounter
--- OUTSIDE RECORDS SUMMARY | 2024-08-01 18:37 | XMS_ITS | Encounter Summary ---
[place] [address] Care Team Providers Care Rivet Sorter Name Role Phone Yisel Marroquin MD Primary Care Provider Unavail able Encounter Details Date Type Department Care Team (Late st Contact Info) Description 01/08/2019 Telephone Primary Care at [facility] [address] [place] [address] Yisel Marroquin MD Social History Tobacco Use [...] PCP okayed this (see note from 01/05/19) [facility] called asking question about lisinopril dose. PCP notified. documented in this encounter Plan of Treatment Not on file documented as of this encounter Visit Diagnoses Not on filedocumented in this encounter Care Teams Rivet Sorter Relationship Specialty Start Date End Date Yisel Marroquin MD PCP - General 11/13/18 03/05/19 documented as of this encounter
--- OUTSIDE RECORDS SUMMARY | 2024-08-01 18:37 | XMS_ITS | Encounter Summary ---
[place] [address] Care Team Providers Care Tank Builder Supervisor Name Role Phone Yisel Marroquin MD Primary Care Provider Unavail able Encounter Details Date Type Department Care Team (Late st Contact Info) Description 01/05/2019 Orders [place] [address] Sidra Del Toro, SUPERVISOR FISH PROCESSING Social History Tobacco Use Types Packs/Day Years [...] on filedocumented in this encounter Care Teams Tank Builder Supervisor Relationship Specialty Start Date End Date Yisel Marroquin MD PCP - General 11/13/18 03/05/19 documented as of this encounter
--- OUTSIDE RECORDS SUMMARY | 2024-08-01 18:37 | XMS_ITS | Encounter Summary ---
Author Organization [facility] [address] Care Team Providers Care Automatic Seamer Name Role Phone Yisel Marroquin MD Primary Care Provider [phone] Reason for Referral * Consultation (Urgent) - Closed Specialty Diagnoses / Procedures Referred By Contac t Referred To Contact Gastroenterology Carli Tinsley MD [facility] [place] [address] [facility] [address] [place] [address] Referral ID Status Reason Start Date Expiration Date V isits Requested Visits Authorized [id number] Closed Consult, Test & Treat 09/11/2018 09/11/2019 1 1 Reason for Visit * Reason Comments Hoarseness Encounter Details Date Type Department Care Team (Late st Contact Info) Description 09/11/2018 3:33 PM EST - 09/11/2018 6:25 PM EST [place] [address] Ken Guerrero MD [address] [place] [id number] Dysphagia, unspecified type Discharge Disposition: Home Social [...] Care Everywhere. * Dysphagia Diet: General Info (Setswana) documented in this encounter Medications at Time [...] IV bolus ( Intravenous New Bag 09/11/18 1645) Relevant imaging findings: No orders to display ED Course as of Sep 11 1813 Mon Sep 11, 2018 181 Same as 09/08, and last hemogram in [...] Discussed her case with the GI fellow cotton farmworker,who advised urgent referral for an outpatient clinic [...] any errors. This note was dictated with LP33.TV software. Carli Tinsley MD Resident 09/11/181818 Associated [...] 09/11/2018 4:45 PM EST COMPREHENSIVE METABOLIC PANEL STAT 09/11/2018 4:45 PM EST documented in this encounter Results * Phosphorus (09/11/2018 4:45 PM EST) Phosphorus 3.4 2.5 - 4.5 mg/dL [facility] Blood specimen (specimen) Venous Draw / Unknown 09/11/2018 4:45 PM EST 09/11/2018 5:06 PM EST Narrative Resulting Agency Comment Spec In Lab Carli Tinsley MD CHEMISTRY ORDERABLES [facility] [place] [place] [address] * Magnesium (09/11/2018 4:45 PM EST) Magnesium 0.80 0.69 - 1.07 mmol/L [facility] Blood specimen (specimen) Venous Draw / Unknown 09/11/2018 4:45 PM EST 09/11/2018 5:06 PM EST Narrative Resulting Agency Comment Spec In Lab Carli Tinsley MD CHEMISTRY ORDERABLES Performing Organization Address City/[facility]/ZIP Co de Phone Number [facility] [place] [address] * Gold Tube HOLD (09/11/2018 4:45 PM EST) Gold Hold Sample in lab. [facility] Blood specimen (specimen) Venous Draw / Unknown 09/11/2018 4:45 PM EST 09/11/2018 5:07 PM EST Carli Tinsley MD CHEMISTRY ORDERABLES Performing Organization Address City/[facility]/ZIP Co de Phone Number [facility] [place] [address] * Blue Tube HOLD (09/11/2018 4:45 PM EST) Blue Hold Sample in lab. [facility] Blood specimen (specimen) Venous Draw / Unknown 09/11/2018 4:45 PM EST 09/11/2018 5:07 PM EST Carli Tinsley MD HEMATOLOGY ORDERABLE S [facility] [place] [address] * Differential, Automated (09/11/2018 4:45 PM EST) Pathologist [facility] Neutrophil % 70.5 % [facility] Neutrophil Absolute 5.40 1.70 - 6.10 x10(3)/[facility] Lymph % 21.7 % [facility] Lymphocytes Abs 1.7 0.9 - 3.2 x10(3)/[facility] Monocyte % 6.7 % [facility] Monocyte Abs 0.5 0.3 - 0.9 x10(3)/[facility] Eos % 0.3 % [facility] Eosinophils Abs 0.0 0.0 - 0.4 x10(3)/[facility] Basophil % 0.7 % [facility] Baso Absolute 0.0 0.0 - 0.1 x10(3)/[facility] Immature Gran % 0.10 % [facility] Comment: Immature granulocytes(IG's)percentage and absolute count will include metamyelocytes, myelocytes, and promyelocytes. Blood smears from CBCs yielding IG's will be scanned manually for concordance. If this scan disagrees with the automated IG or if promyelocytes are noted, a manual differential will be performed. Immature Gran Absolute 0.01 0.00 - 0.04 x10(3)/[facility] Blood specimen (specimen) 09/11/2018 4:45 PM EST 09/11/2018 5:06 PM EST Narrative Resulting Agency Comment Spec In Lab Carli Tinsley MD HEMATOLOGY ORDERABLE S [facility] [address] * (ABNORMAL) Hemogram (09/11/2018 4:45 PM EST) Pathologist [facility] White Blood Cell 7.6 4.0 - 9.5 x10(3)/[facility] Red Blood Cell 4.44 4.00 - 5.21 x10(6)/mc L [facility] Hemoglobin 14.0 11.7 - 15.5 gm/dL [facility] Hematocrit 42.7 35.7 - 45.8 % [facility] Mean Cell Volume 96.2(H) 82.6 - 94.4 fL [facility] Mean Cell Hemoglobin 31.5 27.1 - 32.0 pg [facility] Mean Cell Hemoglobin Concentration 32.8 31.7 - 35.0 gm/dL [facility] Platelet 161 145 - 357 x10(3)/mc L [facility] RDW Standard Deviation 48.2(H) 37.0 - 46.0 fL [facility] RDW coefficient of variation 13.5 11.5 - 14.1 % [facility] Mean Platelet Volume 10.2 7.6 - 12.9 fL [facility] NRBC% auto 0.0 % [facility] NRBC Absolute 0.000 0.000 - 0.000 x10(3)/mc L [facility] Blood specimen (specimen) 09/11/2018 4:45 PM EST 09/11/2018 5:06 PM EST Narrative Resulting Agency Comment Spec In Lab Carli Tinsley MD HEMATOLOGY ORDERABLE S [facility] [place] [address] * (ABNORMAL) Comprehensive metabolic panel (non-fasting) (09/11/2018 4:45 PM EST) Glucose 81 65 - 199 mg/dL [facility] Comment:Diabetes: >=200 mg/d L plus symptoms Blood Urea Nitrogen 15 8 - 18 mg/dL [facility] Creatinine 0.83 0.70 - 1.20 mg/dL [facility] Sodium 141 135 - 145 mmol/L [facility] Potassium 4.1 3.5 - 5.0 mmol/L [facility] Comment: Please note: ??Patients with WBC >100,000 may have falsely elevated Potassium levels. ??For accurate Potassium quantification in these patients send serum separator tube (gold top) for subsequent determinations. ??Contact the Clinical Chemistry Laboratory if there are any questions. Chloride 101 98 - 107 mmol/L [facility] Carbon Dioxide 26 22 - 31 mmol/L [facility] Anion Gap 14 5 - 15 mmol/L [facility] Calcium 10.1 8.5 - 10.5 mg/dL [facility] Protein, Total 7.4 6.1 - 8.0 gm/dL [facility] Albumin 4.2 3.2 - 5.2 gm/dL [facility] Aspartate Aminotransferase 13 0 - 30 unit/L [facility] Alanine Aminotransferase 7 0 - 30 unit/L [facility] Alkaline Phosphatase 115(H) 40 - 104 unit/L [facility] Bilirubin, Total 0.2 0.2 - 1.3 mg/dL [facility] Est Glomerular Filtration Rate 78 >=60 mL/min/1. 73 m?? [facility] Comment: The eGFR was calculated using the CKD-EPI equation. As with all creatinine based estimates of kidney function, eGFR values calculated with the CKD-EPI equation are not accurate in patients with acute kidney failure, extremes of body mass or the acutely ill. http://[employer]/[facility]ULPHURnkf eGFR 90 >=60 mL/min/1. 73 m?? [facility] Comment: The eGFR was calculated using the CKD-EPI equation. As with all creatinine based estimates of kidney function, eGFR values calculated with the CKD-EPI equation are not accurate in patients with acute kidney failure, extremes of body mass or the acutely ill. http://[employer]/[facility]PHURnkf Blood specimen (specimen) 09/11/2018 4:45 PM EST 09/11/2018 5:06 PM EST Narrative Resulting Agency Comment Spec In Lab Ken Guerrero MD CHEMISTRY ORDERABLES [facility] [place] [address] documented in this encounter Visit Diagnoses Diagnosis [...] RN) documented in this encounter Care Teams Automatic Seamer Relationship Specialty Start Date End Date [place] [address] PCP - General General Internal Medicine 06/28/1810/24 documented as of this encounter
--- OUTSIDE RECORDS SUMMARY | 2024-08-01 18:37 | XMS_ITS | Encounter Summary ---
[place] [address] Care Team Providers Care Tool Honing Machine Set Up Operator Name Role Phone Yisel Marroquin MD Primary Care Provider Unavail able Encounter Details Date Type Department Care Team (Late st Contact Info) Description 05/04/2019 Telephone Primary Care at [facility] [place] [address] Fabby Freedman APRN Social History Tobacco Use Types Packs/Day Years [...] on filedocumented in this encounter Care Teams Tool Honing Machine Set Up Operator Relationship Specialty Start Date End Date Yisel Marroquin MD PCP - General General Internal Medicine 03/06/19 0 documented as of this encounter
--- OUTSIDE RECORDS SUMMARY | 2024-08-01 18:37 | XMS_ITS | Encounter Summary ---
[place] [address] Care Team Providers Care Program Proposals Coordinator Name Role Phone Yisel Marroquin MD Primary Care Provider Unavail able Encounter Details Date Type Department Care Team (Late st Contact Info) Description 04/18/2019 Telephone Primary Care at [facility] [address] [place] [address] Shannon Cruz, RN Social History Tobacco Use [...] Telephone Encounter - Shannon Cruz RN - 04/19/2019 11:39 AM EDT Jeannie [...] check BP q weekly. She went to [facility] and took it twice. 184/89 and 195/104. PCP notified. documented in this encounter Plan of Treatment Not on file documented as of this encounter Visit Diagnoses Not on filedocumented in this encounter Care Teams Program Proposals Coordinator Relationship Specialty Start Date End Date Yisel Marroquin MD PCP - General General Internal Medicine 03/06/19 0 documented as of this encounter
--- OUTSIDE RECORDS SUMMARY | 2024-08-01 18:37 | XMS_ITS | Encounter Summary ---
Author Organization [facility] [place] [address] Care Team Providers Care Detective Sergeant Name Role Phone Yisel Marroquin MD Primary Care Provider Unavail able Reason for Visit * Reason Onset Date Comments Medication Refill 01/04/2019 Encounter Details Date Type Department Care Team (Late st Contact Info) Description 01/04/2019 Refill Primary Care at [facility] [address] [place] [phone] Yisel Marroquin MD CAD (coronary artery disease) [...] Miscellaneous Notes * Telephone Encounter - Sabine Yee, Arjun - 01/04/2019 1:10 PM EDT Last Prescription [...] Coronary atherosclerosis of unspecified type of vessel, citizen [place] or graft documented in this encounter Care Teams Detective Sergeant Relationship Specialty Start Date End Date Yisel Marroquin MD PCP - General 11/13/18 03/05/19 documented as of this encounter
--- OUTSIDE RECORDS SUMMARY | 2024-08-01 18:37 | XMS_ITS | Encounter Summary ---
[place] [address] Care Team Providers Care Police Clerk Name Role Phone Yisel Marroquin MD Primary Care Provider Unavail able Reason for Visit * Reason Onset Date Comments Other 01/05/2019 Encounter Details Date Type Department Care Team (Late st Contact Info) Description 01/05/2019 Telephone [place] [phone] Sidra Del Toro, NAPHTHALENE STILL OPERATOR Other Social History Tobacco Use Types Packs/Day [...] filedocumented in this encounter Care Teams Police Clerk Relationship Specialty Start Date End Date Yisel Marroquin MD PCP - General 11/13/18 03/05/19 documented as of this encounter
--- OUTSIDE RECORDS SUMMARY | 2024-08-01 18:37 | XMS_ITS | Encounter Summary ---
[place] [address] Care Team Providers Care Chief Operations Officer Name Role Phone Yisel Marroquin MD Primary Care Provider Unavail able Encounter Details Date Type Department Care Team (Late st Contact Info) Description 04/06/2019 Telephone Pharmacy at [facility] [address] [place] [address] Lyly Dixon, LTAC, [facility] Social History Tobacco Use Types Packs/Day Years [...] Miscellaneous Notes * [facility]09[facility] 9:43 AM EDT Jeannie Lawson Trisha [id number] is scheduled for an office visit with [...] for flu shot at [facility]. Medications 04/09/19 9040 Medication Sig Taking? ibuprofen (ADVIL;MOTRIN) 600 mg [...] issues to report. Thank you, Lyly Dixon RPH [phone] 04/09/19 documented in this encounter Plan of Treatment Not on file documented as of this encounter Visit Diagnoses Not on filedocumented in this encounter Care Teams Chief Operations Officer Relationship Specialty Start Date End Date Yisel Marroquin MD PCP - General General Internal Medicine 03/06/19 0 documented as of this encounter
--- OUTSIDE RECORDS SUMMARY | 2024-08-01 18:37 | XMS_ITS | Encounter Summary ---
Author Organization [facility] [place] [address] Care Team Providers Care Fruit Peeler Name Role Phone Yisel Marroquin MD Primary Care Provider [phone] Encounter Details Date Type Department Care Team (Late st Contact Info) Description 09/19/2018 12:41 PM EST Anesthesia [place] [address] Francisco Javier Lord MD [facility] [place] [address] Anesthesia Record Procedure Summary Procedure Name Responsible [...] 1157; median cubital vein (antecubital fossa), right; nsfb-dgt-nswczn catheter system; 20 gauge; FABIANA Cartwright ; distraction; 09/19/18; 1346 09/19/18 1157 by [...] * Anesthesia Postprocedure Evaluation - Francisco Javier Lodr MD - 09/19/2018 2:42 PM EST [facility] [place] Department of Anesthesiology Post-procedure Note Patient: Jeannie Rico Procedure Summary Date: 09/19/18 Room / Location: [facility] ENDO 4 / [facility] Anesthesia Start: 1241 Anesthesia Stop: 1304 Procedure: UPPER GASTROINTESTINAL ENDOSCOPY,WITH BIOPSY SINGLE OR MULTIPLE (WRVU 2.49) (N/A ) Diagnosis: (dysphagia - CONSULT) Surgeon: Tyron Mercado MD Responsible Provider: Francisco Javier Lord MD Anesthesia Type: MAC ASA Status: 3 All Anesthesia Providers: Anesthesiologist: Francisco Javier Lord MD WOODS SUPERINTENDENT: Jose F Mei CRNA Vitals Value Taken Time BP 129/117 09/19/2018 1:20 PM Temp Pulse Resp SpO2 95 % 09/19/2018 1:26 PM Pain Level Vitals shown include unvalidated device data. Patient Location: PACU/[facility] Level of Consciousness: Awake and Alert Pain [...] List Diagnosis ??? Osteoporosis DEXA done at [facility] on 10/29/15: osteoporosis at the left hip T-3, and osteopenia of the spine T-1.9 ??? Atherosclerosis of [place] coronary artery of [place] heart without angina pectoris ??? Hypertension ??? [...] BIOPSY performed by Ken Sanders MD at [facility] ??? UPPER GI ENDOSCOPY, EXAM 12/04/2010 UPPER GI ENDOSCOPY performed by DEE WRIGHT at [facility] Social History Tobacco Use ??? Smoking [...] Chronic pain ??? Lumbago ??? Atherosclerosis of [place] coronary artery of [place] heart without angina pectoris ??? Hypertension ??? [...] mL/hr documented in this encounter Care Teams Fruit Peeler Relationship Specialty Start Date End [place] [address] PCP - General General Internal Medicine 06/28/1810/24 documented as of this encounter
--- OUTSIDE RECORDS SUMMARY | 2024-08-01 18:37 | XMS_ITS | Encounter Summary ---
[place] [address] Care Team Providers Care Comfort Station Supervisor Name Role Phone Yisel Marroquin MD Primary Care Provider Unavail able Reason for Visit * Reason Comments Medication Refill Encounter Details Date Type Department Care Team (Late st Contact Info) Description 07/20/2019 Refill Primary Care at [facility] [address] [place] [phone] Yisel Marroquin MD Social History Tobacco Use [...] on filedocumented in this encounter Care Teams Comfort Station Supervisor Relationship Specialty Start Date End Date Yisel Marroquin MD PCP - General General Internal Medicine 03/06/19 0 documented as of this encounter
--- OUTSIDE RECORDS SUMMARY | 2024-08-01 18:37 | XMS_ITS | Encounter Summary ---
[place] [address] Care Team Providers Care Pourer Bull Ladle Name Role Phone Yisel Marroquin MD Primary Care Provider Unavail able Encounter Details Date Type Department Care Team (Late st Contact Info) Description 06/01/2019 Orders Only Primary Care at [facility] [address] [place] [address] eDvi Mccormick RN B12 deficiency Social History Tobacco [...] deficiencies documented in this encounter Care Teams Pourer Bull Ladle Relationship Specialty Start Date End Date Yisel Marroquin MD PCP - General General Internal Medicine 03/06/19 0 documented as of this encounter
--- OUTSIDE RECORDS SUMMARY | 2024-08-01 18:37 | XMS_ITS | Encounter Summary ---
Author Organization [facility] [place] [address] Care Team Providers Care Clarifier Operator Helper Name Role Phone Yisel Marroquin MD Primary Care Provider Unavail able Reason for Referral * Diagnostic Test (Routine) - Closed Specialty Diagnoses / Procedures Referred By Contdavide t Referred To Contact Radiology Diagnoses Long-term use of high-risk medication Other osteoporosis without current pathological fracture Procedures DXA Central-Spine, Hip, And/Or Whole Body (Generic) Yisel Marroquin MD [address] [place] [address] [facility] Xray [address] [place] [address] Referral ID Status Reason Start Date Expiration Date V isits Requested Visits Authorized [id number] Closed Specialty Service Requested 02/07/2019 02/07/2020 1 1 Reason for Visit * Reason Comments Follow-up Encounter Details Date Type Department Care Team ([facility] Contact Info) Description 02/07/2019 11:30 AM EDT Office Visit Primary Care at [address] [address] Yisel Marroquin MD Smokes cigarettes; Cervicalgia; Essential hypertension; Gastroesophageal reflux [...] alert, oriented, no distress, obese white female, egg caser at side HEENT: Dry mucus membranes. CV: [...] BMD measurements and plots are available in EApse under the imaging tab. Paper copies will be sent to providers without E-DH access. If you have received this report without the data sheet and do not have access to E-REHAPP, please contact Radiology Daycare Provider at [phone] Tuesday thru Tuesday 8am-4pm. Thank you for letting us participate in the care of this patient. For questions regarding this report, please contact the number below. ? Narrative 02/20/2019 10:58 AM EDT EXAMINATION: DXA CENTRAL-SPINE, HIP, AND/OR WHOLE BODY (GENERIC) CLINICAL HISTORY: Hx bariatric surgery amd intermediate PPI use, rec by gen surg TECHNIQUE: [...] (GENERIC) CLINICAL HISTORY: Hx bariatric surgery amd intermediate PPI use, rec by gensurg TECHNIQUE: Scans [...] BMD measurements and plots are available in EParentingInformerunder the imaging tab. Paper copies will be sent to providers without ConnectQuest access.If you have received this report without the data sheet and do not haveaccess to ConnectQuest, please contact Radiology Daycare Provider at [phone] Tuesday thruFriday 8am-4pm. Thank you for letting [...] fracture documented in this encounter Care Teams Clarifier Operator Helper Relationship Specialty Start Date End Date Yisel Marroquin MD PCP - General 11/13/18 03/05/19 documented as of this encounter
--- OUTSIDE RECORDS SUMMARY | 2024-08-01 18:37 | XMS_ITS | Encounter Summary ---
Author Organization [facility] [place] [address] Care Team Providers Care Entry Level Programmer Name Role Phone Yisel Marroquin MD Primary Care Provider Unavail able Reason for Visit * Diagnostic Test (Routine) - Closed Specialty Diagnoses / Procedures Referred By Vanita dimas Referred To Contact Radiology Diagnoses Long-term use of high-risk medication Other osteoporosis without current pathological fracture Procedures DXA Central-Spine, Hip, And/Or Whole Body (Generic) Yisel Marroquin MD [address] [place] [address] [facility] Rad Xray [address] [place] [phone] Referral ID Status Reason Start Date Expiration Date V isits Requested Visits Authorized [id number] Closed Specialty Service Requested 02/07/2019 02/07/2020 1 1 Encounter Details Date Type Department Care Team (Latest Contact Info) Description 02/20/2019 10:00 AM EDT Ancillary Procedure Radiology D[facility] at [facility] at [address] [address] Yisel Marroquin MD Long-term use of high-risk medication; Other osteoporosis [...] BMD measurements and plots are available in EOOHLALA Mobile under the imaging tab. Paper copies will be sent to providers without EOOHLALA Mobile access. If you have received this report without the data sheet and do not have access to [employer], please contact Radiology Ukrainian Folk Arts Instructor at [phone] Tuesday thru Tuesday 8am-4pm. Thank you for letting us participate in the care of this patient. For questions regarding this report, please contact the number below. ? Narrative 02/20/2019 10:58 AM EDT EXAMINATION: DXA CENTRAL-SPINE, HIP, AND/OR WHOLE BODY (GENERIC) CLINICAL HISTORY: Hx bariatric surgery amd supervisor intermediates PPI use, rec by gen surg TECHNIQUE: [...] (GENERIC) CLINICAL HISTORY: Hx bariatric surgery amd long-term PPI use, rec by gensurg TECHNIQUE: Scans [...] BMD measurements and plots are available in E-under the imaging tab. Paper copies will be sent to providers without [employer] access.If you have received this report without the data sheet and do not haveaccess to [employer], please contact Radiology Ukrainian Folk Arts Instructor at [phone] Tuesday thruFriday 8am-4pm. Thank you for letting us participate in the care of this patient. Forquestions regarding this report, please contact the number below. Yisel Marroquin MD IMG DEXA ORDERABLES documented in this encounter Visit Diagnoses Diagnosis Long-term use of high-risk medication Other osteoporosis without current pathological fracture documented in this encounter Care Teams Entry Level Programmer Relationship Specialty Start Date End Date Yisel Marroquin MD PCP - General 11/13/18 03/05/19 documented as of this encounter
--- OUTSIDE RECORDS SUMMARY | 2024-08-01 18:37 | XMS_ITS | Encounter Summary ---
Author Organization [facility] [place] [address] Care Team Providers Care Automatic Driller And Reamer Name Role Phone Yisel Marrqouin MD Primary Care Provider Unavail able Encounter Details Date Type Department Care Team (Late st Contact Info) Description 01/30/2019 Telephone Primary Care at [facility] [address] [place] [address] Ananth Wilson MD 10 [facility] [place] [address] Social History Tobacco Use Types Packs/Day Years [...] - 01/30/2019 8:05 AM EDT Bet[place] from [facility] is calling to ask if you wanted the Tizanidine as scheduled? Patient was taking this medication every 6-8 hours as needed. He is asking if you want it to be scheduled cold they get 28 days supply? documented in this encounter Plan of Treatment Not on file documented as of this encounter Visit Diagnoses Not on filedocumented in this encounter Care Teams Automatic Driller And Reamer Relationship Specialty Start Date End Date Yisel Marroquin MD PCP - General 11/13/18 03/05/19 documented as of this encounter
--- OUTSIDE RECORDS SUMMARY | 2024-08-01 18:37 | XMS_ITS | Encounter Summary ---
[place] [address] Care Team Providers Care Vba Developer Name Role Phone Yisel Marroquin MD Primary Care Provider Unavail able Encounter Details Date Type Department Care Team (Late st Contact Info) Description 01/05/2019 Notes [place] [address] Sidra Del Toro, DIE CASTING SUPERVISOR Social History Tobacco Use Types Packs/Day Years [...] on filedocumented in this encounter Care Teams Vba Developer Relationship Specialty Start Date End Date Yisel Marroquin MD PCP - General 11/13/18 03/05/19 documented as of this encounter
--- OUTSIDE RECORDS SUMMARY | 2024-08-01 18:37 | XMS_ITS | Encounter Summary ---
Author Organization [facility] [place] [address] Care Team Providers Care Child Day Care Center Worker Name Role Phone Yisel Marroquin MD Primary Care Provider Unavail able Reason for Visit * Reason Onset Date Comments Medication Refill 01/29/2019 Encounter Details Date Type Department Care Team (Late st Contact Info) Description 01/29/2019 Refill Primary Care at [facility] [address] [place] [phone] Yisel Marroquin MD Social History Tobacco Use [...] on filedocumented in this encounter Care Teams Child Day Care Center Worker Relationship Specialty Start Date End Date Yisel Marroquin MD PCP - General 11/13/18 03/05/19 documented as of this encounter
--- OUTSIDE RECORDS SUMMARY | 2024-08-01 18:37 | XMS_ITS | Encounter Summary ---
Author Organization [facility] [place] [address] Care Team Providers Care Information Services Vice President Name Role Phone Yisel Marroquin MD Primary Care Provider Unavail able Reason for Visit * Reason Comments Follow-up Annual visit S/P RNY gastric bypass Encounter Details Date Type Department Care Team (Late st Contact Info) Description 11/15/2018 9:00 AM EDT Office Visit [place] [address] Sidra Del Toro, Tamar Navarrete, RD [facility] [place] [address] Disorder of iron metabolism; Status post bariatric [...] Guerra, RD - 11/15/2018 9:00 AM EDT [facility] administrative support coordinator Lela [phone] and [place] [phone] Dietitians: [phone] Surgeons/ nurse practitioners: [phone] Nurse line: [phone] Ask your PCP about the timing of your next bone density scan Testing: Labwork: soon. Go to Rn Cardiac Cath Area 3L, which is 1 flight below the General Surgery Clinic (or any lab including [facility] (open on Tuesdays) Please note that you will always receive a letter with lab results and recommendations. Read the letter carefully and follow recommendations. The letter also contains information regarding your next lab draw. A copy of your office visit today is sent to your primary residential care officer Next visit: 1 year Routine visits are done at 4.8,12, 18 and 24 months after surgery, and yearly thereafter. Please call [phone] if you do not receive an appointment [...] of every month from 1-2 PM at [facility]- no registration required Nutrition and Activity apps- Baritastic, My Fitness Pal, Lose It, My Plate Internet resources: www.Whistle www.Nommunity www.bariatriceating.com www.Ion Beam Services.Lorena Gaxiola/blog [facility] facebook page: https://www.facebook.com/[facility] AMERICA – TULSABariatricSurgery Books & Magazines: - Recipes for Life After Weight Loss Surgery by Suly Cruz - Shrink Yourself by Dr Juan Carlos Carlos - Eating Well - www.Headstrong.Lorena Gaxiola - Cooking Light- www.[employer].Lorena Gaxiola documented in this encounter Progress Notes * [...] protein drinks Social History: Has a supportive geriatric case manager. OBJECTIVE: Type of Surgery: non-divided [...] 11/15/18 221# 53% 38.1 18.5 years post-op [place] Body Weight (based on BMI of 25): [...] month ?? Exercise: yoga, meditation daily, With [email or web address] weather walks daily ?? ASSESSMENT: ?? Summary [...] of contrast was clearly seen within the [place] fundus indicating a leak. The site of [...] use ? Colonoscopy ? Mammogram - Pap [facility] 10/29/15 DEXA Osteoporosis left hip, treated [...] 60% stenosis of proximal 2 LAD on 9/23/13 ??? Musculoskeletal issues: : current treatment with [...] at [facility] ENDOSCOPY Allergies: as per allergy list Medications 11/15/18 0937 Medication Sig Taking? tiotropium (SPIRIVA WITH HANDIHALER) [...] blood in stool [] chronic diarrhea/ constipation HOE RUNNER: [] LMP: [] control [] menorrhagia [x] post-menopause Heme/Lymph: [] excessive bruising or bleeding [] blood donor in past year Psychiatric [] mental health concerns Other: Employment/social: disabled/ to [place] who has schizophrenia Health-related habits: Nicotine: as noted above Alcohol: none Physical activity: as per RD Objective: General: 58 y.o. year-old female looks well, appears upbeat. She is accompanied by her digital designerDorcas Heart: Normal S1S2. RRR Lungs: CTA bilaterally [...] acknowledged. Dietary/ exercise recommendations: as per Raven CALI ?? Advised of resources for smoking cessation. [...] If labwork is done by the primary residential care officer: pleasesend a copy to the Bariatric Surgery Program, General Surgery Clinic, [facility], Questions regarding [facility] Bariatric Surgery Program patients: please call the Bariatric Surgery Program at [phone] documented in this encounter Plan of Treatment Not on file documented as of this encounter Results * (ABNORMAL) Hemoglobin A1c (02/07/2019 12:41 PM EDT) [facility] Hemoglobin A1c 5.9(H) 4.3 - 5.6 % LABORATORY Estimated Average Glucose 123 mg/dL [facility] Blood specimen (specimen) 02/07/2019 12:41 PM EDT 02/07/2019 2:07 PM EDT Narrative Resulting Agency Comment Spec In Lab / APD Sidra T Alverto BOX PERSON CHEMISTRY ORDERAB LES Performing Organization Address City/[facility]/ZIP Co de Phone Number [facility] [address] [place] [address] * (ABNORMAL) Iron and TIBC (02/07/2019 12:41 PM EDT) [facility] Iron 64 30 - 150 mcg/dL [facility] TIBC 351 250 - 450 mcg/dL [facility] Iron Saturation 18(L) 20 - 50 % [facility] Blood specimen (specimen) 02/07/2019 12:41 PM EDT 02/07/2019 2:05 PM EDT Narrative Resulting Agency Comment Spec In Lab / APD Sidra Del Toro BOX PERSON CHEMISTRY ORDERAB LES Performing Organization Address City/[facility]/ZIP Co de Phone Number [facility] [address] [place] [address] * (ABNORMAL) Ferritin (02/07/2019 12:41 PM EDT) [facility] Ferritin 19(L) 30 - 400 ng/mL [facility] Comment: Pediatric reference ranges not verified at [facility], interpret with caution. Reference ranges for females greater than 50 years of age approach values for men, i.e., 30-400 ng/mL. Blood specimen (specimen) 02/07/2019 12:41 PM EDT 02/07/2019 2:05 PM EDT Narrative Resulting Agency Comment Spec In Lab / APD Sidra T Alverto BOX PERSON CHEMISTRY ORDERAB LES Performing Organization Address City/[facility]/ZIP Co de Phone Number [facility] [address] [place] [address] * (ABNORMAL) PTH (02/07/2019 12:41 PM EDT) Parathyroid Hormone 71(H) 15 - 65 pg/mL [facility] Blood specimen (specimen) 02/07/2019 12:41 PM EDT 02/07/2019 3:55 PM EDT Narrative Resulting Agency Comment Spec In Lab / APD Sidra Bray Alverto WOLFN CHEMISTRY ORDERAB LES Performing Organization Address [facility] Co de Phone Number [facility] [place] [address] * Vitamin B12 (02/07/2019 12:41 PM EDT) Vitamin B12 603 232 - 1,245 pg/mL [facility] Blood specimen (specimen) 02/07/2019 12:41 PM EDT 02/07/2019 3:55 PM EDT Narrative Resulting Agency Comment Spec In Lab / APD Sidra Bray Alverto BOX PERSON CHEMISTRY ORDERAB LES Performing Organization Address [facility] Co de Phone Number [facility] [place] [address] * Vitamin B1, whole blood (02/07/2019 12:41 PM EDT) Vit B1 Lvl Wb (NOVEMBER) 128 70 - 180 nmol/L [facility] Comment: ADDITIONAL INFORMATION This test was developed and its performance characteristics determined by [facility] in a manner consistent with CLIA requirements. This test has not been cleared or approved by the U.S. Food and Drug Administration. Test Performed by: [facility] [address] [place] [address] Blood specimen (specimen) 02/07/2019 12:41 PM EDT 02/07/2019 5:37 PM EDT Narrative Resulting Agency Comment Spec In Lab / APD Sidra Del Toro APRN LAB SEND OUT ORDE VIDAL Performing Organization Address City/[facility]/ZIP Co de Phone Number [facility] [address] [place] [address] * Vitamin D, 25-Hydroxy (02/07/2019 12:41 PM EDT) Vitamin D Total 25 OH 36 30 - 100 ng/mL [facility] Comment: Deficient <10 ng/mL Insufficient 10 to 29 ng/mL Sufficient 30 to 100 ng/mL Potential Intoxication >100 ng/mL According to the US National Osteoporosis Foundation, Vitamin D concentrations >30 ng/mL are sufficient to protect bone health. ??The National Kidney Foundation has similarly stated that patients with Vitamin D concentrations <30ng/mL should be considered to be insufficient or deficient. http://Canpages.Lorena Gaxiola/nkf-guidelines http://Canpages.Lorena Gaxiola/nejm-VitD The IDS iSYS Vitamin D Immunoassay detects both 25-OH Vitamin D2 and 25-OH Vitamin D3, but only a total Vitamin D concentration is reported. Blood specimen (specimen) 02/07/2019 12:41 PM EDT 02/08/2019 7:27 AM EDT Narrative Resulting Agency Comment Spec In Lab / APD Sidra Del Toro APRN CHEMISTRY ORDERAB LES Performing Organization Address City/[facility]/ZIP Co de Phone Number [facility] [place] [address] * Folate, serum (02/07/2019 12:41 PM EDT) Folate 8.6 4.8 - 24.2 ng/mL [facility] Blood specimen (specimen) 02/07/2019 12:41 PM EDT 02/07/2019 3:55 PM EDT Narrative Resulting Agency Comment Spec In Lab / APD Sidra Del Toro BOX PERSON CHEMISTRY ORDERAB LES [facility] [place] [address] documented in this encounter Visit Diagnoses Diagnosis [...] type documented in this encounter Care Teams Information Services Vice President Relationship Specialty Start Date End Date Yisel Marroquin MD PCP - General 11/13/18 03/05/19 documented as of this encounter
--- OUTSIDE RECORDS SUMMARY | 2024-08-01 18:37 | XMS_ITS | Encounter Summary ---
[place] [address] Care Team Providers Care Claim Administrator Name Role Phone Yisel Marroquin MD Primary Care Provider Unavail able Encounter Details Date Type Department Care Team (Late st Contact Info) Description 01/05/2019 Telephone Cardiology at [address] [phone] Jessica Galindo, RN Social History Tobacco Use Types Packs/Day [...] time with further questions or concerns.\ Jessica Galindo RN, BSN Ambulatory Cardiology Department documented in this encounter Plan of Treatment Not on file documented as of this encounter Visit Diagnoses Not on filedocumented in this encounter Care Teams Claim Administrator Relationship Specialty Start Date End Date Yisel Marroquin MD PCP - General 11/13/18 03/05/19 documented as of this encounter
--- OUTSIDE RECORDS SUMMARY | 2024-08-01 18:37 | XMS_ITS | Encounter Summary ---
Author Organization [facility] Address [facility] [place] [address] Care Team Providers Care Commission Sales Associate Name Role Phone Yisel Marroquin MD Primary Care Provider Reason for Visit * Reason Onset Date Comments Pre Procedure Call 09/12/2018 MED STOP- urg ent surgery scheduled Encounter Details Date Type Department Care Team (Late st Contact Info) Description 09/12/2018 Telephone Cardiology at [address] [address] Freddy Mejias MD [facility] [place] [address] Pre Procedure Call (MED STOP- urgent surgery [...] if ok, and if she needs bridging. [phone] Thank you documented in this encounter Plan of Treatment Not on file documented as of this encounter Visit Diagnoses Not on filedocumented in this encounter Care Teams Commission Sales Associate Relationship Specialty Start Date [place] [address] PCP - General General Internal Medicine 06/28/1810/24 documented as of this encounter
--- OUTSIDE RECORDS SUMMARY | 2024-08-01 18:37 | XMS_ITS | Encounter Summary ---
[place] [address] Care Team Providers Care Program Proposals Coordinator Name Role Phone Yisel Marroquin MD Primary Care Provider Unavail able Encounter Details Date Type Department Care Team (Late st Contact Info) Description 06/01/2019 Telephone Primary Care at [facility] [address] [place] [address] Devi Mccormick RN Social History Tobacco Use [...]
--- OUTSIDE RECORDS SUMMARY | 2024-08-01 18:37 | XMS_ITS | Encounter Summary ---
Author Organization [facility] [place] [address] Care Team Providers Care Ornamenter Name Role Phone Yisel Marroquin MD Primary Care Provider Unavail able Reason for Visit * Reason Comments Medication Refill Encounter Details Date Type Department Care Team (Late st Contact Info) Description 06/29/2019 Refill Primary Care at [facility] [address] [place] [address] Ananth Wilson MD 10 [facility] [place] [address] Social History Tobacco Use Types Packs/Day Years [...] on filedocumented in this encounter Care Teams Ornamenter Relationship Specialty Start Date End Date Yisel Marroquin MD PCP - General General Internal Medicine 03/06/19 0 documented as of this encounter
--- OUTSIDE RECORDS SUMMARY | 2024-08-01 18:37 | XMS_ITS | Encounter Summary ---
[place] [address] Care Team Providers Care Boom Stick Worker Name Role Phone Yisel Marroquin MD Primary Care Provider Unavail able Encounter Details Date Type Department Care Team (Late st Contact Info) Description 01/05/2019 Notes [place] [address] Sidra Del Toro, CHEESEMAKING LABORER Social History Tobacco Use Types Packs/Day Years [...] 01/05/2019 12:36 PM EDT Bariatric Surgery Program [facility] cardiology clinic called to clarify whether Jeannie [...] on filedocumented in this encounter Care Teams Boom Stick Worker Relationship Specialty Start Date End Date Yisel Marroquin MD PCP - General 11/13/18 03/05/19 documented as of this encounter
--- OUTSIDE RECORDS SUMMARY | 2024-08-01 18:37 | XMS_ITS | Encounter Summary ---
Author Organization [facility] [place] [address] Care Team Providers Care Public Health Sanitarian Technician Name Role Phone Yisel aMrroquin MD Primary Care Provider Unavail able Encounter Details Date Type Department Care Team (Late st Contact Info) Description 08/23/2019 Orders Only Primary [facility] at [facility] [place] [address] Meli Jaimes, [employer] ARCHITECT [address] [place] [address] Social History Tobacco Use Types Packs/Day Years [...] filedocumented in this encounter Care Teams Public Health Sanitarian Technician Relationship Specialty Start Date End Date Yisel Marroquin MD PCP - General General Internal Medicine 03/06/19 0 documented as of this encounter
--- OUTSIDE RECORDS SUMMARY | 2024-08-01 18:37 | XMS_ITS | Encounter Summary ---
[place] [address] Care Team Providers Care Groover Operator Name Role Phone Yisel Marroquin MD Primary Care Provider Unavail able Reason for Visit * Reason Comments Medication Refill Encounter Details Date Type Department Care Team (Late st Contact Info) Description 12/12/2018 Refill Primary Care at [facility] [address] [place] [address] Yisel Marroquin MD Social History Tobacco Use [...] on filedocumented in this encounter Care Teams Groover Operator Relationship Specialty Start Date End Date Yisel Marroquin MD PCP - General 11/13/18 03/05/19 documented as of this encounter
--- OUTSIDE RECORDS SUMMARY | 2024-08-01 18:37 | XMS_ITS | Encounter Summary ---
[place] [address] Care Team Providers Care First Line Production Supervisor Name Role Phone Yisel Marroquin MD Primary Care Provider Unavail able Encounter Details Date Type Department Care Team (Late st Contact Info) Description 01/04/2019 Telephone Primary Care at [facility] [address] [place] [address] Shannon Cruz, RN Social History Tobacco Use [...] Marroquin MD - 01/04/2019 6:04 PM EDT Lalit Ortega, Let's make sure she knows the pantoprazole [...] filedocumented in this encounter Care Teams First Line Production Supervisor Relationship Specialty Start Date End Date Yisel Marroquin MD PCP - General 11/13/18 03/05/19 documented as of this encounter
--- OUTSIDE RECORDS SUMMARY | 2024-08-01 18:37 | XMS_ITS | Encounter Summary ---
Author Organization [facility] [place] [address] Care Team Providers Care Lockstitch Front Edge Tape Sewer Name Role Phone Yisel Ventura MD Primary Care Provider [phone] Encounter Details Date Type Department Care Team (Latest Contact Info) Description 09/19/2018 10:59 AM EST - 09/19/2018 2:07 PM EST Hospital Encounter [place] [address] Tyron Mercado MD [facility] [place] [address] Discharge Disposition: Home Social History Tobacco Use [...] - 09/19/2018 1:11 PM EST Please call [phone] before 8pm Mon-Fri with problems, questions or concerns. If you call after 8pm or on weekends, call the Hospital at [phone] and ask to speak to the Folding Rules Printing Machine Operator apron cleaner and the honing machine set up operator will contact that person for you. * Attachments The following attachments cannot be sent through Care Everywhere. * EGD (Upper Endoscopy): Post-op (Japanese) documented in this encounter Medications at Time [...] G89.29 ??? Lumbago M54.5 ??? Atherosclerosis of standing rock coronary artery of standing rock heart without angina pectoris I25.10 ??? Hypertension [...] Surgical Pathology Report (09/19/2018 12:59 PM EST) Final Diagnosis [id number] ? Location: 4T; EA07; A The signing [...] Vigil MD Verified: ??09/22/2018 ?Pathologist Performed at: ??-[facility] [place], [place], [place] CLINICAL INFORMATION Specimen Submitted: A - [...] cassette labeled C1. ??ejr 09/22/2018 3:24 PM [facility] GI Biopsy 09/19/2018 12:5 9 PM EST 09/19/2018 12:59 PM EST GI Biopsy 09/19/2018 12:5 9 PM EST 09/19/2018 12:59 PM EST GI Biopsy 09/19/2018 12:5 9 PM EST 09/19/2018 12:59 PM EST Tyron Mercado MD PATHOLOGY/CYTOLOGY ORDERABLES Performing Organization Address [facility]/ZIP Co de Phone Number [facility] [place] [address] * Specimen to Pathology (09/19/2018 12:59 PM EST) AP Specimen 09/19/2018 12:5 9 PM EST 09/19/2018 12:59 PM EST Narrative [facility] - 09/19/2018 12:59 PM EST Specimen requisition ordered. ??Separate Pathology report to follow Tyron Mercado MD PATHOLOGY/CYTOLOGY ORDERABLES Performing Organization Address [facility] Co de Phone Number [facility] [place] [address] * Specimen to Pathology (09/19/2018 12:59 PM EST) AP Specimen 09/19/2018 12:5 9 PM EST 09/19/2018 12:59 PM EST Narrative [facility] - 09/19/2018 12:59 PM EST Specimen requisition ordered. ??Separate Pathology report to follow Tyron Mercado MD PATHOLOGY/CYTOLOGY ORDERABLES Performing Organization Address [facility] Co de Phone Number [facility] [place] [address] * Specimen to Pathology (09/19/2018 12:59 PM EST) AP Specimen 09/19/2018 12:5 9 PM EST 09/19/2018 12:59 PM EST Narrative [facility] - 09/19/2018 12:59 PM EST Specimen requisition ordered. ??Separate Pathology report to follow Tyron Mercado MD PATHOLOGY/CYTOLOGY ORDERABLES Performing Organization Address [facility]/ZIP Co de Phone Number [facility] [place] [address] * UPPER GI ENDOSCOPY (09/19/2018 12:17 PM EST) Pathologist [facility] UPPER GI ENDOSCOPY [facility] Endoscopy Procedure Date: 09/19/2018 12:17 PM ? Patient Name: Jeannie Rico ? Date of : 1960 ? Age: 58 ? Order #: [id number] ? Instrument Name: [id number] ? Procedure: ? Upper GI endoscopy Indications: ? Dysphagia Providers: ? Tyron Mercado MD, Andrés Teixeira, ? Jeannie Alcazar RN, Anaid Ardon, ? Bookbinder Apprentice Referring MD: ?Yisel Ventura MD Medicines: ? [...] EST Yisel Ventura MD GENERAL SURGICAL ORD [facility] documented in this encounter Visit [...] MD) documented in this encounter Care Teams Lockstitch Front Edge Tape Sewer Relationship Specialty Start Date End Date [place] [address] PCP - General General Internal Medicine 06/28/1810/24 documented as of this encounter
--- OUTSIDE RECORDS SUMMARY | 2024-08-01 18:37 | XMS_ITS | Encounter Summary ---
Author Organization [facility] [place] [address] Care Team Providers Care Overhead Door Technician Name Role Phone Yisel Marroquin MD Primary Care Provider Unavail able Reason for Visit * Reason Comments Medication Refill Encounter Details Date Type Department Care Team (Late st Contact Info) Description 02/26/2019 Refill Cardiology at [address] [address] Freddy Mejias MD [facility] [place] [address] Medication Refill Social History Tobacco Use Types [...] on filedocumented in this encounter Care Teams Overhead Door Technician Relationship Specialty Start Date End Date Yisel Marroquin MD PCP - General 11/13/18 03/05/19 documented as of this encounter
--- OUTSIDE RECORDS SUMMARY | 2024-08-01 18:37 | XMS_ITS | Encounter Summary ---
[place] [address] Care Team Providers Care Reaming Machine Tender Name Role Phone Yisel Marroquin MD Primary Care Provider Unavail able Reason for Visit * Reason Onset Date Comments Medication Refill 06/04/2019 Encounter Details Date Type Department Care Team (Late st Contact Info) Description 06/04/2019 Refill Primary Care at [facility] [address] [place] [phone] Yisel Marroquin MD Gastroesophageal reflux disease, esophagitis presence not specified; [...] Addendum Note - Shannon Chung RN - 06/04/2019 10:12 AM ESTAddended by: SHANNON CHUNG on: 06/04/2019 10:12 AM Modules accepted: Orders * Telephone Encounter - Shannon Chung RN - 06/04/2019 10:04 AM EST PCP: Yisel Marroquin MD Medication: spirivia Last Appt: 05/04/2019 Future Appt: 08/06/2019 Comments: rx was sent on 06/01/19. Pharmacy: [facility] * Telephone Encounter - Shannon Chung RN - 06/04/2019 9:29 AM EST PCP: Yisel Marroquin MD Medication: omeprazole 20mg BID Last Appt: 05/04/2019 Future Appt: 08/06/2019 Comments: pharmacy called stating that they are missing rx for omeprazole. Need 28 worth of rx. Last prescribed 10/19/18 1 year worth. Rest of rx sent Pharmacy: [facility] pharmacy documented in this encounter Plan of Treatment Not on file documented as of this encounter Visit Diagnoses Diagnosis Gastroesophageal reflux disease, esophagitis presence not specified Asthma with acute exacerbation, unspecified asthma severity, unspecified whether persistent documented in this encounter Care Teams Reaming Machine Tender Relationship Specialty Start Date End Date Yisel Marroquin MD PCP - General General Internal Medicine 03/06/19 0 documented as of this encounter
--- OUTSIDE RECORDS SUMMARY | 2024-08-01 18:37 | XMS_ITS | Encounter Summary ---
Author Organization [facility] [place] [address] Care Team Providers Care Dry Cell Sealer Name Role Phone Yisel Ventura MD Primary Care Provider [phone] Encounter Details Date Type Department Care Team (Late st Contact Info) Description 09/19/2018 12:45 PM EST - 09/19/2018 1:15 PM EST Surgery [place] [address] Tyron Mercado MD [facility] [place] [address] UPPER GASTROINTESTINAL ENDOSCOPY,WITH BIOPSY SINGLE OR MULTIPLE [...] - 09/19/2018 1:11 PM EST Please call [phone] before 8pm Mon-Fri with problems, questions or concerns. If you call after 8pm or on weekends, call the Hospital at [phone] and ask to speak to the [employer] hotel recreational facilities manager and the napkin machine operator will contact that person for you. * Attachments The following attachments cannot be sent through Care Everywhere. * EGD (Upper Endoscopy): Post-op (Sinhala) documented in this encounter Medications at Time [...] G89.29 ??? Lumbago M54.5 ??? Atherosclerosis of swinomish coronary artery of swinomish heart without angina pectoris I25.10 ??? Hypertension [...] Report (09/19/2018 12:59 PM EST) Final Diagnosis [id number] ? Location: 4T; EA07; A The signing [...] Vigil MD Verified: ??09/22/2018 ?Pathologist Performed at: ??-[facility] Dept. of Pathology, [place], [place] CLINICAL INFORMATION Specimen Submitted: A - [...] labeled C1. ??ejr 09/22/2018 3:24 PM EST [facility] GI Biopsy 09/19/2018 12:5 9 PM EST 09/19/2018 12:59 PM EST GI Biopsy 09/19/2018 12:5 9 PM EST 09/19/2018 12:59 PM EST GI Biopsy 09/19/2018 12:5 9 PM EST 09/19/2018 12:59 PM EST Tyron Mercado MD PATHOLOGY/CYTOLOGY ORDERABLES Performing Organization Address City/[facility]/ZIP Co de Phone Number [facility] [place] [address] * Specimen to Pathology (09/19/2018 12:59 PM EST) AP Specimen 09/19/2018 12:5 9 PM EST 09/19/2018 12:59 PM EST Narrative [facility] - 09/19/2018 12:59 PM EST Specimen requisition ordered. ??Separate Pathology report to follow Tyron Mercado MD PATHOLOGY/CYTOLOGY ORDERABLES Performing Organization Address City/[facility]/ZIP Co de Phone Number [facility] [place] [address] * Specimen to Pathology (09/19/2018 12:59 PM EST) AP Specimen 09/19/2018 12:5 9 PM EST 09/19/2018 12:59 PM EST Narrative [facility] - 09/19/2018 12:59 PM EST Specimen requisition ordered. ??Separate Pathology report to follow Tyron Mercado MD PATHOLOGY/CYTOLOGY ORDERABLES Performing Organization Address City/[facility]/ZIP Co de Phone Number [facility] [place] [address] * Specimen to Pathology (09/19/2018 12:59 PM EST) AP Specimen 09/19/2018 12:5 9 PM EST 09/19/2018 12:59 PM EST Narrative [facility] - 09/19/2018 12:59 PM EST Specimen requisition ordered. ??Separate Pathology report to follow Tyron Mercado MD PATHOLOGY/CYTOLOGY ORDERABLES Performing Organization Address [facility]/ZIP Co de Phone Number [facility] [place] [address] * UPPER GI ENDOSCOPY (09/19/2018 12:17 PM EST) Pathologist [facility] UPPER GI ENDOSCOPY [facility] Endoscopy Procedure Date: 09/19/2018 12:17 PM ? Patient Name: Jeannie Rico ? [facility]: [id number] ? Date of : 1960 ? Age: 58 ? Order #: [id number] ? Instrument Name: [id number] ? Procedure: ? Upper GI endoscopy Indications: ? Dysphagia Providers: ? Tyron Mercado MD, Andrés Teixeira, ? Jeannie Alcazar RN, Anaid Ardon, ? Lap Welder Referring MD: ?Yisel Ventura MD Medicines: ? [...] EST Yisel Ventura MD GENERAL SURGICAL ORD [facility] documented in this encounter Visit Diagnoses [...] MD) documented in this encounter Care Teams Dry Cell Sealer Relationship Specialty Start Date End Date Yisel [place] [address] PCP - General General Internal Medicine 06/28/1810/24 documented as of this encounter
--- OUTSIDE RECORDS SUMMARY | 2024-08-01 18:37 | XMS_ITS | Encounter Summary ---
Author Organization [facility] [place] [address] Care Team Providers Care Washer And Capper Machine Operator Name Role Phone Yisel Marroquin MD Primary Care Provider Unavail able Reason for Visit * Reason Comments Follow-up Encounter Details Date Type Department Care Team (Late st Contact Info) Description 05/04/2019 2:00 PM EDT Office Visit Primary Care at [facility] [place] [phone] Yisel Marroquin MD Asthma with acute exacerbation, unspecified asthma severity, [...] disorder documented in this encounter Care Teams Washer And Capper Machine Operator Relationship Specialty Start Date End Date Yisel Marroquin MD PCP - General General Internal Medicine 03/06/1912/05/ 0 documented as of this encounter
--- OUTSIDE RECORDS SUMMARY | 2024-08-01 18:37 | XMS_ITS | Encounter Summary ---
Author Organization [facility] [place] [place] [address] Care Team Providers Care Chief Librarian Extension Department Name Role Phone Yisel Marroquin MD Primary Care Provider Unavail able Reason for Visit * Reason Onset Date Comments Medication Refill 08/20/2019 Encounter Details Date Type Department Care Team (Late st Contact Info) Description 08/20/2019 Refill Primary Care at [facility] [address] [place] [address] Yisel Marroquin MD Social History Tobacco Use [...] filedocumented in this encounter Care Teams Chief Librarian Extension Department Relationship Specialty Start Date End Date Yisel Marroquin MD PCP - General General Internal Medicine 03/06/19 0 documented as of this encounter
--- OUTSIDE RECORDS SUMMARY | 2024-08-01 18:37 | XMS_ITS | Encounter Summary ---
[place] [address] Care Team Providers Care Fire Loss Prevention Engineer Name Role Phone Yisel Marroquin MD Primary Care Provider Unavail able Reason for Visit * Reason Comments Medication Refill Encounter Details Date Type Department Care Team (Late st Contact Info) Description 06/15/2019 Refill Primary Care at [facility] [address] [place] [phone] Yisel Marroquin MD Social History Tobacco Use [...] encounter Miscellaneous Notes * Telephone Encounter - SueSabine dimas, Arjun - 06/18/2019 12:47 PM EST Last Prescription [...] on filedocumented in this encounter Care Teams Fire Loss Prevention Engineer Relationship Specialty Start Date End Date Yisel Marroquin MD PCP - General General Internal Medicine 03/06/19 0 documented as of this encounter
--- OUTSIDE RECORDS SUMMARY | 2024-08-01 18:38 | XMS_ITS | Encounter Summary ---
Author Organization [facility] Address [facility] [place] [address] Care Team Providers Care Proof Sorter Name Role Phone Yisel Marroquin MD Primary Care Provider Unavail able Encounter Details Date Type Department Care Team (Late st Contact Info) Description 09/28/2016 Abstract [facility] Conversion Results [address] [place] [address] Apd Conversion, Flowsheet Provider, Social History Tobacco [...] on filedocumented in this encounter Care Teams Proof Sorter Relationship Specialty Start Date End Date Yisel Marroquin MD PCP - General 11/13/18 03/05/19 documented as of this encounter
--- OUTSIDE RECORDS SUMMARY | 2024-08-01 18:38 | XMS_ITS | Encounter Summary ---
[place] [address] Care Team Providers Care Drafter Directional Survey Name Role Phone Adriana Perla APRN Primary Care Provider [phone] Encounter Details Date Type Department Care Team (Latest Contact Info) Description 12/18/2015 Multidisciplinary Ca re Committee [place] [address] Sidra Del Toro APRN Social History Tobacco Use Types Packs/Day [...] NA Evaluation by a member of the [facility] [place] previously: + Staff present at today's meeting: Kasia Crouch MD, Quality Management Coordinator, Skinny Gomez MD, Meena Pena MD, Rajendra [...] stable, on clopidogrel A. S/P hospitalization for [place], [...] Psychological issues: stable with regular counseling bekah Smith in [place]. She finds self-hypnosis, drawing and meditation helpful, [...] on filedocumented in this encounter Care Teams Drafter Directional Survey Relationship Specialty Start Date End Date Adriana Perla APRN [address] [place] [address] PCP - General 06/16/10 06/27/18 documented as of this encounter
--- OUTSIDE RECORDS SUMMARY | 2024-08-01 18:38 | XMS_ITS | Encounter Summary ---
Author Organization [facility] Address [facility] [place] [address] Care Team Providers Care Sales Consultant Residential Manager Name Role Phone Yisel Marroquin MD Primary Care Provider Unavail able Encounter Details Date Type Department Care Team (Late st Contact Info) Description 09/28/2016 Interpretation Only Radiology [address] [place] [address] Unknown None Social History Tobacco Use Types [...] 9:37 AM EST APD Historical Result Principal Radiological Metallurgist: ??JENNY ??SYEDA STACK: INDICATION: ??The patient has [...] renal calculi identified. Jenny Landa MD [facility]/rr [id number] Procedure Note Unknown - 01/22/2019 APD Historical Result Principal Radiological Metallurgist: JENNY LANDA KUB: INDICATION: The patient has [...] renal calculi identified. Jenny Landa MD [facility]/ [id number] Unknown IMG DX ORDERABLES documented in this encounter Visit Diagnoses Not on filedocumented in this encounter Care Teams Sales Consultant Residential Manager Relationship Specialty Start Date End Date Yisel Marroquin MD PCP - General 11/13/18 03/05/19 documented as of this encounter
--- OUTSIDE RECORDS SUMMARY | 2024-08-01 18:38 | XMS_ITS | Encounter Summary ---
Author Organization [facility] Address [facility] [place] [address] Care Team Providers Care Grades 7 And 8 Teacher Name Role Phone Yisel Marroquin MD Primary Care Provider Unavail able Encounter Details Date Type Department Care Team (Late st Contact Info) Description 02/14/2018 Abstract [facility] Conversion Results [address] [place] [address] Apd Conversion, Flowsheet Provider, Social History Tobacco [...] on filedocumented in this encounter Care Teams Grades 7 And 8 Teacher Relationship Specialty Start Date End Date Yisel Marroquin MD PCP - General 11/13/18 03/05/19 documented as of this encounter
--- OUTSIDE RECORDS SUMMARY | 2024-08-01 18:38 | XMS_ITS | Encounter Summary ---
[place] [address] Care Team Providers Care Combat Systems Officer Name Role Phone Yisel Marroquin MD Primary Care Provider Unavail able Encounter Details Date Type Department Care Team (Late st Contact Info) Description 01/04/2018 Orders Only Radiology and Cardiology Results [address] [place] [address] Apd Conversion, Results Provider, Social [...] Results * (ABNORMAL) U Albumin/Cre Ratio (01/04/2018) Albumin / Creatinin Ratio, Urine 5.5(Cloud Operations Engineer al Lab) 0 - 29 [facility] DAY CONVERSION Creatinine, Urine 38.0(Exter nal Lab) KORI FLOR[facility] DAY CONVERSION Albumin, Urine 2.1(Cloud Operations Engineer al Lab) K[facility]I FLORES DAY CONVERSION 01/04/2018 Results Provider Apd Conversion URINE ORDERABLES [facility] CONVERSION documented in this encounter Visit Diagnoses Not on filedocumented in this encounter Care Teams Combat Systems Officer Relationship Specialty Start Date End Date Yisel Marroquin MD PCP - General 11/13/18 03/05/19 documented as of this encounter
--- OUTSIDE RECORDS SUMMARY | 2024-08-01 18:38 | XMS_ITS | Encounter Summary ---
[place] [address] Care Team Providers Care Candy Bar Attendant Name Role Phone Aman Lawrence APRN Primary Care Provider [phone] Encounter Details Date Type Department Care Team (Late st Contact Info) Description 10/21/2017 Telephone [place] [address] Irasema Calvin Social History Tobacco Use Types [...] Sidra Del Toro. She said that her skilled nursing case manager will have to bring her, so she and her skilled nursing case manager are going to call back to schedule sometime next week. I will push her recall incase we don't hear from her. documented in this encounter Plan of Treatment Not on file documented as of this encounter Visit Diagnoses Not on filedocumented in this encounter Care Teams Candy Bar Attendant Relationship Specialty Start Date End Date Aman Lawrence APR[place] [address] [place] [address] PCP - General 06/16/10 06/27/18 documented as of this encounter
--- OUTSIDE RECORDS SUMMARY | 2024-08-01 18:38 | XMS_ITS | Encounter Summary ---
Author Organization [facility] [place] [address] Care Team Providers Care Senior Courtroom Clerk Name Role Phone Aman Lawrence APRN Primary Care Provider [phone] Reason for Visit * Reason Onset Date Comments Medication Refill 03/24/2018 Encounter Details Date Type Department Care Team (Late st Contact Info) Description 03/24/2018 Refill Cardiology at [address] [address] Freddy Mejias MD [facility] [place] [address] Medication Refill Social History Tobacco Use Types [...] filedocumented in this encounter Care Teams Senior Courtroom Clerk Relationship Specialty Start Date End Date Aman Lawrence APRN [place] [address] PCP - General 06/16/10 06/27/18 documented as of this encounter
--- OUTSIDE RECORDS SUMMARY | 2024-08-01 18:38 | XMS_ITS | Encounter Summary ---
Author Organization [facility] Address [facility] [place] [address] Care Team Providers Care Slasher Machine Operator Name Role Phone Yisel Marroquin MD Primary Care Provider Unavail able Encounter Details Date Type Department Care Team (Late st Contact Info) Description 05/24/2016 Abstract [place] Conversion Results [address] [place] [address] Apd Conversion, Flowsheet Provider, Social History Tobacco [...] on filedocumented in this encounter Care Teams Slasher Machine Operator Relationship Specialty Start Date End Date Yisel Marroquin MD PCP - General 11/13/18 03/05/19 documented as of this encounter
--- OUTSIDE RECORDS SUMMARY | 2024-08-01 18:38 | XMS_ITS | Encounter Summary ---
Author Organization [facility] Address [facility] [place] [address] Care Team Providers Care Farm Advisor Name Role Phone Yisel Marroquin MD Primary Care Provider Unavail able Encounter Details Date Type Department Care Team (Late st Contact Info) Description 09/28/2016 Interpretation Only Radiology [address] [facility] [place] [address] Unknown None Social History Tobacco Use Types [...] 9:37 AM EST APD Historical Result Principal Nailer Hand: ??JENNY ??SYEDA CT ABDOMEN AND PELVIS WITHOUT [...] on this unenhanced CT. Jenny Landa MD [facility]/ [id number] Procedure Note Unknown - 01/22/2019 APD Historical Result Principal Nailer Hand: JENNY LANDA CT ABDOMEN AND PELVIS WITHOUT [...] whitecount identified on this unenhanced CT. Jenny Vijay Landa MD [facility]/ [id number] Unknown IMG CT ORDERABLES documented in this encounter Visit Diagnoses Not on filedocumented in this encounter Care Teams Farm Advisor Relationship Specialty Start Date End Date Yisel Marroquin MD PCP - General 11/13/18 03/05/19 documented as of this encounter
--- OUTSIDE RECORDS SUMMARY | 2024-08-01 18:38 | XMS_ITS | Encounter Summary ---
Author Organization [facility] [place] [address] Care Team Providers Care Fluid Designer Name Role Phone Yisel Marroquin MD Primary Care Provider [phone] Reason for Visit * Reason Comments Dysphagia Fever Encounter Details Date Type Department Care Team (Late st Contact Info) Description 09/08/2018 3:39 PM EST - 09/08/2018 11:11 PM EST [place] [id number] Meena English MD [facility] [address] [place] [address] Pneumonia due to organism Discharge Disposition: Home [...] y.o. female with history of ASCVD with SD 1 year ago, obesity status post gastric [...] 09/08/2018 5:01 PM EST BASIC METABOLIC PANEL STAT 09/08/2018 5:01 PM EST GOLD TUBE [...] below. ? Electronically signed by: JASMINE WATSON [facility] ([phone]), at 09/08/2018 10:57 PM 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 APPARATUS REPAIR MECHANIC TECHNIQUE: CT neck performed after the intravenous [...] (GENERIC) CLINICAL HISTORY: Dysphagia, concern for possible APPARATUS REPAIR MECHANIC TECHNIQUE: CT neck performed after the intravenous [...] (Bezet) 391 ms MUSE SYSTEM Calculated P [place] 46 degrees MUSE SYSTEM Calculated R [place] 52 degrees MUSE SYSTEM Calculated T [place] 34 degrees MUSE SYSTEM INTERPRETATION Marked sinus bradycardia Abnormal ECG When compared with ECG of 10-MAY-2016 07:53, No significant change was found Confirmed by MD Manish, Karl ([id number]) on 09/08/2018 9:41:34 PM MUSE SYSTEM 09/08/2018 7:26 PM EST 09/08/2018 9:41 PM EST Meena English MD ECG ORDERABLES MUSE SYSTEM * (ABNORMAL) Differential, Automated (09/08/2018 5:01 PM EST) Neutrophil % 67.7 % [facility] Neutrophil Absolute 6.27(H) 1.70 - 6.10 x10(3)/mc L [facility] Lymph % 23.5 % [facility] Lymphocytes Abs 2.2 0.9 - 3.2 x10(3)/ L [facility] Monocyte % 7.0 % [facility] Monocyte Abs 0.6 0.3 - 0.9 x10(3)/ L [facility] Eos % 0.6 % [facility] Eosinophils Abs 0.1 0.0 - 0.4 x10(3)/ L [facility] Basophil % 0.8 % [facility] Baso Absolute 0.1 0.0 - 0.1 x10(3)/ L [facility] Immature Gran % 0.40 % [facility] Comment: Immature granulocytes(IG's)percentage and absolute count will include metamyelocytes, myelocytes, and promyelocytes. Blood smears from CBCs yielding IG's will be scanned manually for concordance. If this scan disagrees with the automated IG or if promyelocytes are noted, a manual differential will be performed. Immature Gran Absolute 0.04 0.00 - 0.04 x10(3)/mc L [facility] Blood specimen (specimen) 09/08/2018 5:01 PM EST 09/08/2018 5:01 PM EST Narrative Resulting Agency Comment Spec In Lab Gerald Benton MD HEMATOLOGY GUS DRAKE Performing Organization Address City/[facility]/ZIP Co de Phone Number [facility] [place] [address] * (ABNORMAL) Hemogram (09/08/2018 5:01 PM EST) White Blood Cell 9.3 4.0 - 9.5 x10(3)/mc L [facility] Red Blood Cell 4.60 4.00 - 5.21 x10(6)/mc L [facility] Hemoglobin 14.2 11.7 - 15.5 gm/dL [facility] Hematocrit 44.9 35.7 - 45.8 % [facility] Mean Cell Volume 97.6(H) 82.6 - 94.4 fL [facility] Mean Cell Hemoglobin 30.9 27.1 - 32.0 pg [facility] Mean Cell Hemoglobin Concentration 31.6(L) 31.7 - 35.0 gm/dL [facility] Platelet 249 145 - 357 x10(3)/mc L [facility] RDW Standard Deviation 49.3(H) 37.0 - 46.0 [facility] RDW coefficient of variation 13.5 11.5 - 14.1 % [facility] Mean Platelet Volume 9.8 7.6 - 12.9 [facility] NRBC% auto 0.0 % [facility] NRBC Absolute 0.000 0.000 - 0.000 x10(3)/mc L [facility] Blood specimen (specimen) 09/08/2018 5:01 PM EST 09/08/2018 5:01 PM EST Narrative Resulting Agency Comment Spec In Lab Gerald DRAKE [facility] [place] [address] * (ABNORMAL) pro-Brain Natriuretic Peptide (09/08/2018 5:01 PM EST) NT-proBNP 347(H) <=125 pg/mL [facility] Blood specimen (specimen) 09/08/2018 5:01 PM EST 09/08/2018 5:01 PM EST Narrative Resulting Agency Comment Spec In Lab Meena English MD CHEMISTRY ORDERABLES [facility] [place] [address] * Troponin (09/08/2018 5:01 PM EST) Pathologist [facility] Troponin-T <0.01 0.00 - 0.00 ng/mL [facility] Comment: The 99th percentile [...] ischemia ?? New or presumed new significant ZK-tkgolca-H wave (ST-T) changes or new left bundle [...] additional sample may be indicated. Reference: Third [place] Definition of Myocardial Infarction. Journal of the [place] College of Cardiology 2012;60:1581-98 Blood specimen (specimen) 09/08/2018 5:01 PM EST 09/08/2018 5:01 PM EST Narrative Resulting Agency Comment Spec In Lab Meena English MD CHEMISTRY ORDERABLES [facility] [place] [address] * Basic Metabolic Panel (non-fasting) (09/08/2018 5:01 PM EST) Glucose 92 65 - 199 mg/dL [facility] Comment:Diabetes: >=200 mg/d L plus symptoms Blood Urea Nitrogen 9 8 - 18 mg/dL [facility] Creatinine 0.88 0.70 - 1.20 mg/dL [facility] Sodium 143 135 - 145 mmol/L [facility] Potassium 4.6 3.5 - 5.0 mmol/L [facility] Comment: Please note: ??Patients with WBC >100,000 may have falsely elevated Potassium levels. ??For accurate Potassium quantification in these patients send serum separator tube (gold top) for subsequent determinations. ??Contact the Clinical Chemistry Laboratory if there are any questions. Chloride 103 98 - 107 mmol/L [facility] Carbon Dioxide 30 22 - 31 mmol/L [facility] Anion Gap 10 5 - 15 mmol/L [facility] Calcium 9.9 8.5 - 10.5 mg/dL [facility] Est Glomerular Filtration Rate 72 >=60 mL/min/1. 73 m?? [facility] Comment: The eGFR was calculated using the CKD-EPI equation. As with all creatinine based estimates of kidney function, eGFR values calculated with the CKD-EPI equation are not accurate in patients with acute kidney failure, extremes of body mass or the acutely ill. http://[employer]/[facility] [place]nkf eGFR 84 >=60 mL/min/1. 73 m?? [facility] Comment: The eGFR was calculated using the CKD-EPI equation. As with all creatinine based estimates of kidney function, eGFR values calculated with the CKD-EPI equation are not accurate in patients with acute kidney failure, extremes of body mass or the acutely ill. http://[employer]/[facility] [place]nkf Blood specimen (specimen) 09/08/2018 5:01 PM EST 09/08/2018 5:01 PM EST Narrative Resulting Agency Comment Spec In Lab Meena English MD CHEMISTRY ORDERABLES Performing Organization Address [facility] Co de Phone Number [facility] [place] [address] * Gold Tube HOLD (09/08/2018 5:01 PM EST) Gold Hold Sample in lab. [facility] Blood specimen (specimen) Venous Draw / Unknown 09/08/2018 5:01 PM EST 09/08/2018 5:02 PM EST Gerald Bentno MD CHEMISTRY ORDER [place] Performing Organization Address [facility] [place] [address] * Blue Tube HOLD (09/08/2018 5:01 PM EST) Blue Hold Sample in lab. [facility] Blood specimen (specimen) Venous Draw / Unknown 09/08/2018 5:01 PM EST 09/08/2018 5:03 PM EST Gerald Benton MD HEMATOLOGY GUS DRAKE Performing Organization Address [facility] de Phone Number [facility] [place] [address] * XR Chest PA & Lateral (Generic) (09/08/2018 4:30 PM EST) Anatomical Region Laterality Modality Chest N/A Digital Radiogra phy Impressions 09/08/2018 4:48 PM EST Suspect developing infiltrate left lower lobe. Thank you for letting us participate in the care of this patient. For questions regarding this report, please contact the number below. ? Narrative 09/08/2018 4:48 PM EST EXAMINATION: XR [...] the number below. Meena English MD IMG DX ORDERABLES documented [...] Indication for (Active or Suspected): Pneumonia (Community) 191 (New Bag - Prov ider: Celi Macedo RN)1948 (Stopped - Provider: Aminah Peguero RN) doxycycline monohydrate (MONODOX) capsule 100 mg (COMPLETED) 100 mg, Oral, ONCE, 1 dose, On Tue09/08/18 at 1819, STAT, Indication for (Active or Suspected): Pneumonia (Community) 192 (Given - Provid er: Celi Macedo RN) PRN Medication Order 09/06/2018 09/07/2018 09/08/2018 iohexol (OMNIPAQUE) 350 mg/mL solution 0-200 mL (COMPLETED) 0-200 mL, Intravenous, ONCE PRN, 1 dose, Starting on Tue09/08/18 at 2107, Until Tue09/08/18 at 2107, Per Protocol, Warning Vesicant/Irritant Medication , Radiology Contrast, Routine 2106 (Given - Provid er: Serafin Hill) documented in this encounter Care Teams Fluid Designer Relationship Specialty Start Date [place] [address] PCP - General General Internal Medicine 06/28/1810/24 documented as of this encounter
--- OUTSIDE RECORDS SUMMARY | 2024-08-01 18:38 | XMS_ITS | Encounter Summary ---
Author Organization [facility] Address [facility] [place] [address] Care Team Providers Care Peace Officer Name Role Phone Yisel Marroquin MD Primary Care Provider Unavail able Encounter Details Date Type Department Care Team (Late st Contact Info) Description 01/13/2017 Abstract [place] Conversion Results [address] [place] [address] Apd Conversion, Flowsheet Provider, Social History Tobacco [...] on filedocumented in this encounter Care Teams Peace Officer Relationship Specialty Start Date End Date Yisel Marroquin MD PCP - General 11/13/18 03/05/19 documented as of this encounter
--- OUTSIDE RECORDS SUMMARY | 2024-08-01 18:38 | XMS_ITS | Encounter Summary ---
Author Organization [facility] Address [facility] [place] [address] Care Team Providers Care Horticultural Specialty Grower Inside Name Role Phone Yisel Marroquin MD Primary Care Provider Unavail able Encounter Details Date Type Department Care Team (Late st Contact Info) Description 01/13/2016 Abstract [place] Conversion Results [address] [place] [address] Apd Conversion, Flowsheet Provider, Social History Tobacco [...] on filedocumented in this encounter Care Teams Horticultural Specialty Grower Inside Relationship Specialty Start Date End Date Yisel Marroquin MD PCP - General 11/13/18 03/05/19 documented as of this encounter
--- OUTSIDE RECORDS SUMMARY | 2024-08-01 18:38 | XMS_ITS | Encounter Summary ---
[place] [address] Care Team Providers Care Finance Business Manager Name Role Phone Aman Lawrence APRN Primary Care Provider [phone] Encounter Details Date Type Department Care Team (Latest Contact Info) Description 12/09/2016 Multidisciplinary Ca re Committee [place] [address] Sidra Del Toro APRN Social History Tobacco [...] attendance: Evaluation by a member of the [facility] previously: Vivi Del Toro/ Jing Darden Case presentation by: Dr Wright Staff present at today's meeting: Dee Wright MD, Commercial Journeyman Electrician, Skinny Gomez MD, Meena Pena MD, Tamar [...] BIOPSY performed by Ken Sanders MD at [facility] ??? UPPER GI ENDOSCOPY, EXAM 12/04/2010 UPPER GI ENDOSCOPY performed by DEE WRIGHT at [facility] Plan of care: no further testing indicated, pain is attributed to being musculoskeletal in nature. documented in this encounter Plan of Treatment Not on file documented as of this encounter Visit Diagnoses Not on filedocumented in this encounter Care Teams Finance Business Manager Relationship Specialty Start Date End Date Aman Lawrence APRN [address] [place] [address] PCP - General 06/16/10 06/27/18 documented as of this encounter
--- OUTSIDE RECORDS SUMMARY | 2024-08-01 18:38 | XMS_ITS | Encounter Summary ---
[place] [address] Care Team Providers Care Assembler Corncob Pipes Name Role Phone Aman Lawrence APRN Primary Care Provider [phone] [phone] Reason for Referral * Consultation (Routine) - Closed Specialty Diagnoses / Procedures Referred By Vanita dimas Referred To Contact Endocrinology Diagnoses Osteoporosis, unspecified osteoporosis type, unspecified pathological fracture presence Tobacco dependence Sidra Del Toro APRN [facility] [place] [address] [facility] [address] [place] [phone] Referral ID Status Reason Start Date Expiration Date V isits Requested Visits Authorized [id number] Closed Specialty Service Requested 11/19/2016 11/19/2017 1 1 Reason for Visit * Reason Comments Follow-up Bariatric Surgery Pr ogram follow up Encounter Details Date Type Department Care Team (Late st Contact Info) Description 11/15/2016 9:00 AM EDT Office [place] [phone] Sidra Del Toro APRN Stanzione, Rose A, RD Disorder of iron metabolism; Status post [...] Niecy Darden - 11/15/2016 9:00 AM EDT [facility] Admin coordinator Rhonda: [phone] Dietitian: [phone] Surgeons/ nurse practitioner: [phone] Nurse line: [phone] Congratulations on your plan to stop smoking!! Testing: Labwork: Today. Go to [facility], which is 1 flight below the General [...] after surgery, and yearly thereafter. Please call [phone] if you do not receive an appointment [...] of every month from 1-2 PM at [facility] [place]- no registration required Nutrition and Activity apps- Baritastic, My Fitness Pal, Lose It, My Plate Internet resources: www.Fitbay wwwShanghai Anymoba www.bariatriceating.BigTwist www.[employer].BigTwist/blog [facility] facebook page: https://www.facebook.com/[facility] CITYBariatricSurgery Books & Magazines: - Recipes for Life [...] of contrast was clearly seen within the [place] fundus indicating a leak. The site of [...] use never Colonoscopy ? Mammogram - Pap CHIP DEXA 11/07/02 DEXA normal Problem List ??? [...] ? T &A ??? Complete dental extractions 1999 Allergies Allergen Reactions ??? 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 At [facility] a non-enhanced CT scanof the abdomen was [...] in December She had an EGD at [facility] last November which was unremarkable Subjective. Patient [...] blood in stool [] chronic diarrhea/ constipation BOOTH CLEANER: [] LMP: [] control [] menorrhagia [+] post-menopause Heme/Lymph: [] excessive bruising [] blood donor in past year Psychiatric [] mental health concerns Other: Exercise/activity level: as per RD note Employment/social: disabled/ Health-related habits: Tobacco: 2 cartons a week, rolled by pt Alcohol: none Dietary history: See dietitian note. Objective: General: 56 y.o. year-old female looks well. She is accompanied by her finance broker Dorcas. Heart: RRR Lungs: CTA bilaterally without [...] If labwork is done by the primary assisted living care manager: please send a copy to the Bariatric Surgery Program, General Surgery Clinic, [facility], attention Sidra Del Toro APRN. Questions regarding [facility] Bariatric Surgery Program patients: please call Jorge Del Toro APRN at [phone] or [phone]. E-mail: [email or web address] * Niecy Darden - 11/15/2016 9:00 AM [...] years post-op Social History: Has a supportive behavioral health case manager. Vitamin/Mineral Supplements (reported by patient): [...] sometimes 1 slice cheese PM Snack Sometimes Latter-Day granola bar Dinner Soup- vegetable, chicken and rice, or tomato Or grilled zuchinni with ham roll up Or 1 egg and 1 slice toast HS Snack Sometimes fruit or tomatoes and carrots Protein/ grams per day: 30-40 grams Calories per day: 8865-8831 kcals Hydrating fluids- oz/ day: 62-68 oz [...] Folate, serum (11/15/2016 10:25 AM EDT) Folate >20.0 4.8 - 24.2 ng/mL [facility] Blood specimen (specimen) 11/15/2016 10:25 AM EDT 11/15/2016 10:36 AM EDT Narrative Resulting Agency Comment Spec In Lab Sidra Del Toro APRN CHEMISTRY ORDERAB LES [facility] [place] [address] * (ABNORMAL) Vitamin B1, whole blood (11/15/2016 10:25 AM EDT) Vit B1 Lvl Wb (NOVEMBER) 233(H) 70 - 180 nmol/L [facility] Comment: ADDITIONAL INFORMATION This test was developed and its performance characteristics determined by [facility] in a manner consistent with CLIA requirements. This test has not been cleared or approved by the U.S. Food and Drug Administration. Test Performed by: [address] [address] Blood specimen (specimen) 11/15/2016 10:25 AM EDT 11/15/2016 1:08 PM EDT Narrative Resulting Agency Comment Spec In Lab Sidra Katarina Finney [facility] SEND OUT ORDE RABLES Performing Organization Address City/[facility]/ZIP Co de Phone Number [facility] [place] [address] * PTH (11/15/2016 10:25 AM EDT) Parathyroid Hormone 47 15 - 65 pg/mL [facility] Blood specimen (specimen) 11/15/2016 10:25 AM EDT 11/15/2016 10:36 AM EDT Narrative Resulting Agency Comment Spec In Lab Sidra Katarina Alverto [facility]GG[facility] CHEMISTRY ORDERAB LES Performing Organization Address [facility]/ZIP Co de Phone Number [facility] [place] [address] * (ABNORMAL) Vitamin B12 (11/15/2016 10:25 AM EDT) Vitamin B12 1,588(H) 207 - 974 pg/mL [facility] Blood specimen (specimen) 11/15/2016 10:25 AM EDT 11/15/2016 10:36 AM EDT Narrative Resulting Agency Comment Spec In Lab Sidra T Alverto [facility] CHEMISTRY ORDERAB LES Performing Organization Address [facility]/ZIP Co de Phone Number [facility] [place] [address] * Iron and TIBC (11/15/2016 10:25 AM EDT) Iron 88 30 - 150 mcg/dL [facility] TIBC 390 250 - 450 mcg/dL [facility] Iron Saturation 23 20 - 50 % [facility] Blood specimen (specimen) 11/15/2016 10:25 AM EDT 11/15/2016 10:36 AM EDT Narrative Resulting Agency Comment Spec In Lab Sidra Del Toro PEGGER CHEMISTRY ORDERAB LES Performing Organization Address City/[facility]/ZIP Co de Phone Number [facility] [place] [address] * Ferritin (11/15/2016 10:25 AM EDT) Ferritin 36 30 - 400 ng/mL [facility] Comment: Pediatric reference ranges not verified at [facility], interpret with caution. Reference ranges for females greater than 50 years of age approach values for men, i.e., 30-400 ng/mL. Blood specimen (specimen) 11/15/2016 10:25 AM EDT 11/15/2016 10:36 AM EDT Narrative Resulting Agency Comment Spec In Lab Sidra T Alverto PEGGER CHEMISTRY ORDERAB LES Performing Organization Address City/[facility]/ZIP Co de Phone Number [facility] [place] [address] * Vitamin D, 25-Hydroxy (11/15/2016 10:25 AM EDT) Pathologist [facility] Vitamin D Total 25 OH 44 30 - 100 ng/mL [facility] Comment: Deficient <10 ng/mL Insufficient 10 to 29 ng/mL Sufficient 30 to 100 ng/mL Potential Intoxication >100 ng/mL According to the US National Osteoporosis Foundation, Vitamin D concentrations >30 ng/mL are sufficient to protect bone health. ??The National Kidney Foundation has similarly stated that patients with Vitamin D concentrations <30ng/mL should be considered to be insufficient or deficient. http://Super Derivatives.BigTwist/DHnatlkidneyfoundation http://Lingoing/DHVitD The IDS iSYS Vitamin D Immunoassay detects both 25-OH Vitamin D2 and 25-OH Vitamin D3, but only a total Vitamin D concentration is reported. 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
--- OUTSIDE RECORDS SUMMARY | 2024-08-01 18:38 | XMS_ITS | Encounter Summary ---
Author Organization [facility] [place] [address] Care Team Providers Care Salvation Army Officer Name Role Phone Yisel Marroquin MD Primary Care Provider Unavail able Encounter Details Date Type Department Care Team (Late st Contact Info) Description 10/12/2016 Abstract [place] Conversion Results [address] [place] [address] Apd Conversion, Flowsheet Provider, Social History Tobacco [...] on filedocumented in this encounter Care Teams Salvation Army Officer Relationship Specialty Start Date End Date Yisel Marroquin MD PCP - General 11/13/18 03/05/19 documented as of this encounter
--- OUTSIDE RECORDS SUMMARY | 2024-08-01 18:38 | XMS_ITS | Encounter Summary ---
Author Organization [facility] [place] [address] Care Team Providers Care Quality Assurance Supervisor Trim Name Role Phone Aman Lawrence APRN Primary Care Provider [phone] [phone] Reason for Visit * Reason Onset Date Comments Chest Pain 04/26/2016 Encounter Details Date Type Department Care Team (Late st Contact Info) Description 05/03/2016 Telephone Cardiology at [address] [phone] Yadira Sung RN Chest Pain Social History [...] (Bezet) 399 ms MUSE SYSTEM Calculated P [place] 55 degrees MUSE SYSTEM Calculated R [place] 61 degrees MUSE SYSTEM Calculated T [place] 36 degrees MUSE SYSTEM INTERPRETATION Sinus bradycardia [...] type documented in this encounter Care Teams Quality Assurance Supervisor Trim Relationship Specialty Start Date [place] [address] PCP - General 06/16/10 06/27/18 documented as of this encounter
--- OUTSIDE RECORDS SUMMARY | 2024-08-01 18:38 | XMS_ITS | Encounter Summary ---
Author Organization [facility] [place] [address] Care Team Providers Care Ramp Boss Name Role Phone Aman Lawrence APRN Primary Care Provider [phone] [phone] Encounter Details Date Type Department Care Team (Late st Contact Info) Description 01/19/2017 Orders [place] [address] Kenya Villanueva, RN Social History Tobacco Use [...] on filedocumented in this encounter Care Teams Ramp Boss Relationship Specialty Start Date End Date Aman Lawrence [place] [address] PCP - General 06/16/10 06/27/18 documented as of this encounter
--- OUTSIDE RECORDS SUMMARY | 2024-08-01 18:38 | XMS_ITS | Encounter Summary ---
Author Organization [facility] Address [facility] [place] [address] Care Team Providers Care Recycling Program Manager Name Role Phone Aman Lawrence APRN Primary Care Provider [phone] [phone] Reason for Visit * Reason Comments Chest Pain Coronary Artery Disease Hypertension Encounter Details Date Type Department Care Team (Latest Contact Info) Description 12/13/2016 10:00 AM EDT Office Visit Cardiology at [address] [address] Freddy Mejias MD [facility] [address] Atherosclerosis of upper sioux coronary artery of upper sioux heart without angina pectoris; Essential hypertension Social [...] List Diagnosis ??? Osteoporosis DEXA done at [facility] on 10/29/15: osteoporosis at the left hip T-3, and osteopenia of the spine T-1.9 ??? 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 Hypertension ??? [...] BIOPSY performed by Ken Sanders MD at [facility] ENDOSCOPY ??? UPPER GI ENDOSCOPY, EXAM 12/04/2010 UPPER GI ENDOSCOPY performed by DEE WRIGHT at [facility] ENDOSCOPY No family history on file. [...] Social history: , no children. Lives in [place]. 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 Smoking: Active smoker, 2ppd Alcohol: Prior alcoholic, [...] 2 times daily. 360 tablet 3 ??? 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
--- OUTSIDE RECORDS SUMMARY | 2024-08-01 18:38 | XMS_ITS | Encounter Summary ---
Author Organization [facility] Address [facility] [place] [address] Care Team Providers Care Credit Coordinator Name Role Phone Yisel Marroquin MD Primary Care Provider Unavail able Encounter Details Date Type Department Care Team (Late st Contact Info) Description 03/28/2018 Abstract [place] Rice Conversion Results [address] [place] [address] Apd Conversion, Flowsheet Provider, Social History Tobacco [...] filedocumented in this encounter Care Teams Credit Coordinator Relationship Specialty Start Date End Date Yisel Marroquin MD PCP - General 11/13/18 03/05/19 documented as of this encounter
--- OUTSIDE RECORDS SUMMARY | 2024-08-01 18:38 | XMS_ITS | Encounter Summary ---
Author Organization [facility] Address [facility] [place] [address] Care Team Providers Care Office Agent Name Role Phone Yisel Marroquin MD Primary Care Provider Unavail able Encounter Details Date Type Department Care Team (Late st Contact Info) Description 11/22/2017 Abstract [place] Rice Conversion Results [address] [place] [address] Apd Conversion, Flowsheet Provider, Social History Tobacco [...] on filedocumented in this encounter Care Teams Office Agent Relationship Specialty Start Date End Date Yisel Marroquin MD PCP - General 11/13/18 03/05/19 documented as of this encounter
--- OUTSIDE RECORDS SUMMARY | 2024-08-01 18:38 | XMS_ITS | Encounter Summary ---
Author Organization [facility] [place] [address] Care Team Providers Care Music Internship Name Role Phone Yisel Marroquin MD Primary Care Provider Unavail able Encounter Details Date Type Department Care Team (Late st Contact Info) Description 08/03/2016 Abstract [place] Rice Conversion Results [address] [place] [address] Apd Conversion, Flowsheet Provider, Social History Tobacco [...] on filedocumented in this encounter Care Teams Music Internship Relationship Specialty Start Date End Date Yisel Marroquin MD PCP - General 11/13/18 03/05/19 documented as of this encounter
--- OUTSIDE RECORDS SUMMARY | 2024-08-01 18:38 | XMS_ITS | Encounter Summary ---
Author Organization [facility] Address [facility] [place] [place] [address] Care Team Providers Care Band Saw Operator Name Role Phone Aman Lawrence APRN Primary Care Provider [phone] Encounter Details Date Type Department Care Team (Late st Contact Info) Description 02/28/2018 Interpretation Only [facility] [address] [place] [phone] Sherly Earl APRN [address] [place] [address] Social History Tobacco Use Types Packs/Day Years [...] in this encounter Care Teams Band Saw Operator Relationship Specialty Start Date End Date Aman Lawrence [place] [place] [address] PCP - General 06/16/10 06/27/18 documented as of this encounter
--- OUTSIDE RECORDS SUMMARY | 2024-08-01 18:38 | XMS_ITS | Encounter Summary ---
[place] [address] Care Team Providers Care Burn Nurse Name Role Phone Yisel Marroquin MD Primary Care Provider Unavail able Encounter Details Date Type Department Care Team (Late st Contact Info) Description 01/04/2018 Orders Only Radiology and Cardiology Results [address] [place] [address] Apd Conversion, Results Provider, Social [...] this encounter Results * (ABNORMAL) TSH (01/04/2018) Thyroid Stimulating Hormone 2.125(Ext ernal Lab) 0.358 - 3.740 KORI GARCIA CONVERSION 01/04/2018 Results Provider Apd Conversion MD JASON ESTRELLA ORDERABLES KORI FLORES DAY CONVERSION documented in this encounter Visit Diagnoses Not on filedocumented in this encounter Care Teams Burn Nurse Relationship Specialty Start Date End Date Yisel Marroquin MD PCP - General 11/13/18 03/05/19 documented as of this encounter
--- OUTSIDE RECORDS SUMMARY | 2024-08-01 18:38 | XMS_ITS | Encounter Summary ---
Author Organization [facility] [place] [address] Care Team Providers Care Alarm Adjuster Name Role Phone Yisel Marroquin MD Primary Care Provider Unavail able Encounter Details Date Type Department Care Team (Late st Contact Info) Description 02/07/2017 Orders Only Radiology and Cardiology Results [address] [place] [address] Apd Conversion, Results Provider, Social [...] encounter Results * (ABNORMAL) Hemoglobin A1c (02/07/2017) Estimated Average Glucose 134.1(ExtH ) 82.5 - 116.9 KORI FLORES DAY CONVERSION Hemoglobin A1c 6.3(ExtH) 4.5 - 6.2 KORI FLORES DAY CONVERSION 02/07/2017 Results Provider Apd Conversion MD JASON ESTRELLA ORDERABLES KORI FLORES DAY CONVERSION documented in this encounter Visit Diagnoses Not on filedocumented in this encounter Care Teams Alarm Adjuster Relationship Specialty Start Date End Date Yisel Marroquin MD PCP - General 11/13/18 03/05/19 documented as of this encounter
--- OUTSIDE RECORDS SUMMARY | 2024-08-01 18:38 | XMS_ITS | Encounter Summary ---
[place] [address] Care Team Providers Care Client Application Support Specialist Name Role Phone Yisel Marroquin MD Primary Care Provider [phone] Reason for Visit * Reason Onset Date Comments Other 09/11/2018 Encounter Details Date Type Department Care Team (Late st Contact Info) Description 09/11/2018 Telephone [place] [phone] Sidra Del Toro, PUSH BUTTON SWITCH ASSEMBLER Other Social History Tobacco Use Types Packs/Day [...] on filedocumented in this encounter Care Teams Client Application Support Specialist Relationship Specialty Start Date End Date [place] [address] PCP - General General Internal Medicine 06/28/1810/24 documented as of this encounter
--- OUTSIDE RECORDS SUMMARY | 2024-08-01 18:38 | XMS_ITS | Encounter Summary ---
Author Organization [facility] [place] [address] Care Team Providers Care Culinary Specialist Name Role Phone Aman Lawrence APRN Primary Care Provider [phone] Reason for Visit * Reason Onset Date Comments Medication Refill 04/25/2017 Encounter Details Date Type Department Care Team (Late st Contact Info) Description 04/25/2017 Refill Cardiology at [address] [address] Freddy Mejias MD [facility] [place] [address] Medication Refill Social History Tobacco Use Types [...] on filedocumented in this encounter Care Teams Culinary Specialist Relationship Specialty Start Date End Date Aman Lawrence [place] [address] PCP - General 06/16/10 06/27/18 documented as of this encounter
--- OUTSIDE RECORDS SUMMARY | 2024-08-01 18:38 | XMS_ITS | Encounter Summary ---
Author Organization [facility] Address [facility] [address] Care Team Providers Care Draw Bench Operator Name Role Phone Yisel Marroquin MD Primary Care Provider Unavail able Encounter Details Date Type Department Care Team (Late st Contact Info) Description 08/03/2016 Abstract [place] Conversion Results [address] [place] [address] Apd Conversion, Flowsheet Provider, Social History Tobacco [...] on filedocumented in this encounter Care Teams Draw Bench Operator Relationship Specialty Start Date End Date Yisel Marroquin MD PCP - General 11/13/18 03/05/19 documented as of this encounter
--- OUTSIDE RECORDS SUMMARY | 2024-08-01 18:38 | XMS_ITS | Encounter Summary ---
[place] [address] Care Team Providers Care Career And Transition Teacher Name Role Phone Yisel Marroquin MD Primary Care Provider Unavail able Encounter Details Date Type Department Care Team (Late st Contact Info) Description 04/28/2016 Orders Only Radiology and Cardiology Results [address] [place] [address] Apd Conversion, Results Provider, Social [...] encounter Results * (ABNORMAL) Hemoglobin A1c (04/28/2016) Estimated Average Glucose 125.5(ExtH ) 82.5 - 116.9 KORI FLORES DAY CONVERSION Hemoglobin A1c 6.0(Sintering Plant Supervisor al Lab) 4.5 - 6.2 KORI FLORES DAY CONVERSION 04/28/2016 Results Provider Apd Conversion MD JASON ESTRELLA ORDERABLES KORI FLORES DAY CONVERSION documented in this encounter Visit Diagnoses Not on filedocumented in this encounter Care Teams Career And Transition Teacher Relationship Specialty Start Date End Date Yisel Marroquin MD PCP - General 11/13/18 03/05/19 documented as of this encounter
--- OUTSIDE RECORDS SUMMARY | 2024-08-01 18:38 | XMS_ITS | Encounter Summary ---
Author Organization [facility] Address [facility] [place] [address] Care Team Providers Care Cook Specialty Name Role Phone Yisel Marroquin MD Primary Care Provider Unavail able Encounter Details Date Type Department Care Team (Late st Contact Info) Description 05/19/2017 Abstract [place] Rice Conversion Results [address] [place] [address] Apd Conversion, Flowsheet Provider, Social History Tobacco [...] on filedocumented in this encounter Care Teams Cook Specialty Relationship Specialty Start Date End Date Yisel Marroquin MD PCP - General 11/13/18 03/05/19 documented as of this encounter
--- OUTSIDE RECORDS SUMMARY | 2024-08-01 18:38 | XMS_ITS | Encounter Summary ---
[place] [address] Care Team Providers Care Finishing Range Operator Name Role Phone Aman Lawrence APRN Primary Care Provider +1 -[phone] Encounter Details Date Type Department Care Team (Late st Contact Info) Description 01/19/2017 Telephone [place] [address] Kenya Villanueva, RN Social History Tobacco Use [...] EDT I received a call from the [place] pharmacy about Jeannie's calcium dose changes. I let them know that I have no documentation about any changes in Jeannie's calcium. Medication Calcium Citrate-Vitamin D3 315-250 mg-unit Tablet [[id number]] Calcium Citrate-Vitamin D3 315-250 mg-unit Tablet [[id number]] Order Details Dose: 2 tablet Route: Oral Frequency: 2 TIMES DAILY Dispense Quantity: 360 tablet Refills: 3 Fills Remaining: -- ?? Sig: Take 2 tablets by mouth 2 times daily. (2) tabs 2 times daily. ?? Written Date: 11/19/16 Expiration Date: -- Start Date: 11/19/16 End Date: 11/19/17 after 730 doses ?? Ordering Provider: Sidra Del Toro APRN ARSH #: [id number] Authorizing Provider: Sidra Del Toro APRN ARSH #: [id number] Pharmacy: [address] ARSH #: -- Pharmacy Comments: -- ?? Quantity Remaining: -- Quantity Filled: -- documented in this encounter Plan of Treatment Not on file documented as of this encounter Visit Diagnoses Not on filedocumented in this encounter Care Teams Finishing Range Operator Relationship Specialty Start Date End Date Aman Lawrence APRN [address] [address] PCP - General 06/16/10 06/27/18 documented as of this encounter
--- OUTSIDE RECORDS SUMMARY | 2024-08-01 18:38 | XMS_ITS | Encounter Summary ---
Author Organization [facility] [place] [address] Care Team Providers Care Finance And Administration Manager Name Role Phone Yisel Marroquin MD Primary Care Provider Unavail able Encounter Details Date Type Department Care Team (Late st Contact Info) Description 08/22/2017 Abstract [place] Conversion Results [address] [place] [address] Apd Conversion, Flowsheet Provider, Social History Tobacco [...] filedocumented in this encounter Care Teams Finance And Administration Manager Relationship Specialty Start Date End Date Yisel Marroquin MD PCP - General 11/13/18 03/05/19 documented as of this encounter
--- OUTSIDE RECORDS SUMMARY | 2024-08-01 18:38 | XMS_ITS | Encounter Summary ---
Author Organization [facility] Address [facility] [place] [address] Care Team Providers Care Backbreaker Name Role Phone Yisel Marroquin MD Primary Care Provider Unavail able Encounter Details Date Type Department Care Team (Late st Contact Info) Description 07/01/2016 Abstract [place] Conversion Results [address] [place] [address] Apd Conversion, Flowsheet Provider, Social History Tobacco [...] on filedocumented in this encounter Care Teams Backbreaker Relationship Specialty Start Date End Date Yisel Marroquin MD PCP - General 11/13/18 03/05/19 documented as of this encounter
--- OUTSIDE RECORDS SUMMARY | 2024-08-01 18:38 | XMS_ITS | Encounter Summary ---
Author Organization [facility] [place] [address] Care Team Providers Care Contact Lens Inspector Name Role Phone Yisel Marroquin MD Primary Care Provider Unavail able Encounter Details Date Type Department Care Team (Late st Contact Info) Description 12/11/2015 Orders Only Radiology and Cardiology Results [address] [place] [address] Apd Conversion, Results Provider, Social [...] encounter Results * (ABNORMAL) Lipid Panel (12/11/2015) Cholesterol/HDL Ratio 2.7(ExtL) 3.2 - 4.4 KORI FLORES DAY CONVERSION VLDL 31.2(Exte rnal Lab) KORI FLORES DAY CONVERSION LDL Cholesterol 35(Huller Operator al Lab) KORI FLORES DAY CONVERSION HDL Cholesterol 39(ExtL) 40 - 60 ALIC E FLORES DAY CONVERSION Triglyceride 156(ExtH) 30 - 150 KORI P NATALEE DAY CONVERSION Cholesterol, Total 105(Exter nal Lab) 50 - 200 KORI FLORES DAY CONVERSION 12/11/2015 Results Provider Apd Conversion MD JASON ESTRELLA ORDERABLES KORI FLORES DAY CONVERSION documented in this encounter Visit Diagnoses Not on filedocumented in this encounter Care Teams Contact Lens Inspector Relationship Specialty Start Date End Date Yisel Marroquin MD PCP - General 11/13/18 03/05/19 documented as of this encounter
--- OUTSIDE RECORDS SUMMARY | 2024-08-01 18:38 | XMS_ITS | Encounter Summary ---
[place] [address] Care Team Providers Care Box Spinner Name Role Phone Aman Lawrence APRN Primary Care Provider +1 [phone] Reason for Visit * Reason Onset Date Comments Follow-up 12/03/2016 Encounter Details Date Type Department Care Team (Late st Contact Info) Description 12/03/2016 Telephone [place] [phone] Sidra Del Toro, SAM Follow-up Social History Tobacco Use Types Packs/Day [...] on filedocumented in this encounter Care Teams Box Spinner Relationship Specialty Start Date End Date Aman Lawrence APRN [address] [place] [address] PCP - General 06/16/10 06/27/18 documented as of this encounter
--- OUTSIDE RECORDS SUMMARY | 2024-08-01 18:38 | XMS_ITS | Encounter Summary ---
Author Organization [facility] Address [facility] [place] [address] Care Team Providers Care Order Entry Technician Name Role Phone Aman Lawrence APRN Primary Care Provider [phone] [phone] Encounter Details Date Type Department Care Team (Late st Contact Info) Description 09/28/2016 - 09/28/2016 11:59 PM EST Hospital Encounter Radiology Library at [facility], [place] [phone] [facility] Disposition: Home Social History [...] vitamins (B COMPLEX-VITAMIN B12) tablet 09/23/2010 11/19/2016 kiejpaprggqp-kzic-esobdq ls (COMPLETE MULTIVITAMIN) Tab tablet 1 Tablet(s), PO, Once daily 09/23/2010 11/19/2016 calcium citrate-vitamin D (CITRACAL+D) 315-200 mg-unit per tablet 2 Tablet(s), PO, Twice daily 09/23/2010 11/19/2016 ergocalciferol (VITAMIN D) 50,000 unit capsule [id number], PO, TWICE a week 09/23/2010 11/19/2016 documented as of this encounter Plan of Treatment Not on file documented as of this encounter Procedures Procedure Name Priority Date/Time Associated Diagnosis Comments FILM LIBRARY STORAGE ONLY CT ABDOMEN AND PELVIS Routine 09/28/2016 12:00 AM EST Pain documented in this encounter Results * Film Library- Storage Only CT Abdomen & Pelvis (09/28/2016 12:00 AM EST) Narrative ANGUS MÉNEDZ - 10/12/2016 1:44 PM EDT This exam is for storage only and is auto-finalizing. Dr Janie MCKENNA FILM LIBRARY ORD ERABLES [place], [place] documented in this encounter Visit Diagnoses Diagnosis Pain Generalized pain documented in this encounter Care Teams Order Entry Technician Relationship Specialty Start Date End Date Aman Lawrence APRN [address] [place] [address] PCP - General 06/16/10 06/27/18 documented as of this encounter
--- OUTSIDE RECORDS SUMMARY | 2024-08-01 18:38 | XMS_ITS | Encounter Summary ---
Author Organization [facility] [place] [address] Care Team Providers Care Cooper Helper Name Role Phone Yisel Marroquin MD Primary Care Provider Unavail able Encounter Details Date Type Department Care Team (Late st Contact Info) Description 07/14/2017 Abstract [place] [facility] Conversion Results [address] [place] [address] Apd Conversion, Flowsheet Provider, Social History Tobacco [...] on filedocumented in this encounter Care Teams Cooper Helper Relationship Specialty Start Date End Date Yisel Marroquin MD PCP - General 11/13/18 03/05/19 documented as of this encounter
--- OUTSIDE RECORDS SUMMARY | 2024-08-01 18:38 | XMS_ITS | Encounter Summary ---
Author Organization [facility] Address [facility] [place] [address] Care Team Providers Care Slip Tender Name Role Phone Yisel Marroquin MD Primary Care Provider Unavail able Encounter Details Date Type Department Care Team (Late st Contact Info) Description 06/27/2018 Abstract [place] Conversion Results [address] [place] [address] Apd Conversion, Flowsheet Provider, Social History Tobacco [...] on filedocumented in this encounter Care Teams Slip Tender Relationship Specialty Start Date End Date Yisel Marroquin MD PCP - General 11/13/18 03/05/19 documented as of this encounter
--- OUTSIDE RECORDS SUMMARY | 2024-08-01 18:38 | XMS_ITS | Encounter Summary ---
[place] [address] Care Team Providers Care Assistant Surveyor Name Role Phone Yisel Marroquin MD Primary Care Provider Unavail able Encounter Details Date Type Department Care Team (Late st Contact Info) Description 04/28/2016 Orders Only Radiology and Cardiology Results [address] [place] [address] Apd Conversion, Results Provider, Social [...] this encounter Results * (ABNORMAL) TSH (04/28/2016) Thyroid Stimulating Hormone 1.196(Ext ernal Lab) 0.358 - 3.740 KORI GARCIA CONVERSION 04/28/2016 Results Provider Apd Conversion MD JASON ESTRELLA ORDERABLES KORI FLORES DAY CONVERSION documented in this encounter Visit Diagnoses Not on filedocumented in this encounter Care Teams Assistant Surveyor Relationship Specialty Start Date End Date Yisel Marroquin MD PCP - General 11/13/18 03/05/19 documented as of this encounter
--- OUTSIDE RECORDS SUMMARY | 2024-08-01 18:38 | XMS_ITS | Encounter Summary ---
Author Organization [facility] Address [facility] [place] [address] Care Team Providers Care Shrub Grower Name Role Phone Aman Lawrence APRN Primary Care Provider +1 [phone] Reason for Visit * Reason Comments Chest Pain Coronary Artery Disease Encounter Details Date Type Department Care Team (Late st Contact Info) Description 05/10/2016 8:00 AM EDT Office Visit Cardiology at [address] [address] Freddy Mejias MD [facility] [place] [address] Chest pain, unspecified type Social History Tobacco [...] want to know if it is working. [phone]. I will see you back in 1 [...] List Diagnosis ??? Osteoporosis DEXA done at [facility] on 10/29/15: osteoporosis at the left hip [...] WRIGHT at [facility] ENDOSCOPY ??? Abdomen surgery ??? Hysterectomy ??? Pro upper gi endoscopy, biopsy N/A 12/03/2015 EGD WITH BIOPSY performed by Kne Sanders MD at [facility] ENDOSCOPY No family history on file. [...] Social history: , no children. Lives in [place]. 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 Smoking: Active smoker, 2ppd Alcohol: Prior alcoholic, [...] complex vitamins (B COMPLEX-VITAMIN B12) tablet ??? yrkhgjpbyjyq-hqep-afwzmzhj (COMPLETE MULTIVITAMIN) Tab tablet 1 Tablet(s), PO, Once daily ??? calcium citrate-vitamin D (CITRACAL+D) 315-200 mg-unit per tablet 2 Tablet(s), PO, Twice daily ??? ergocalciferol (VITAMIN D) 50,000 unit capsule [id number], PO, TWICE a week No current facility-administered [...] (ABNORMAL) Differential, Automated (05/10/2016 8:52 AM EDT) Neutrophil % 66.6 % [facility] Neutrophil Absolute 7.47(H) 1.70 - 6.10 x10(3)/mc L [facility] Lymph % 25.1 % [facility] Lymphocytes Abs 2.8 0.9 - 3.2 x10(3)/mc L [facility] Monocyte % 6.2 % [facility] Monocyte Abs 0.7 0.3 - 0.9 x10(3)/mc L [facility] Eos % 1.1 % [facility] Eosinophils Abs 0.1 0.0 - 0.4 x10(3)/mc L [facility] Basophil % 0.6 % [facility] Baso Absolute 0.1 0.0 - 0.1 x10(3)/mc L [facility] Immature Gran % 0.40 % [facility] Comment: Immature granulocytes(IG's)percentage and absolute count will include metamyelocytes, myelocytes, and promyelocytes. Blood smears from CBCs yielding IG's will be scanned manually for concordance. If this scan disagrees with the automated IG or if promyelocytes are noted, a manual differential will be performed. Immature Gran Absolute 0.04 0.00 - 0.04 x10(3)/mc L [facility] Blood specimen (specimen) 05/10/2016 8:52 AM EDT 05/10/2016 9:15 AM EDT Narrative Resulting Agency Comment Spec In Lab Freddy Mejias MD HEMATOLOGY ORDERABLE S [facility] [place] [address] * (ABNORMAL) Hemogram (05/10/2016 8:52 AM EDT) White Blood Cell 11.2(H) 4.0 - 9.5 x10(3)/[facility] Red Blood Cell 4.44 4.00 - 5.21 x10(6)/mc L [facility] Hemoglobin 14.0 11.7 - 15.5 gm/dL [facility] Hematocrit 43.0 35.7 - 45.8 % [facility] Mean Cell Volume 96.8(H) 82.6 - 94.4 fL [facility] Mean Cell Hemoglobin 31.5 27.1 - 32.0 pg [facility] Mean Cell Hemoglobin Concentration 32.6 31.7 - 35.0 gm/dL [facility] Platelet 232 145 - 357 x10(3)/mc L [facility] RDW Standard Deviation 46.5(H) 37.0 - 46.0 [facility] RDW coefficient of variation 13.0 11.5 - 14.1 % [facility] Mean Platelet Volume 10.2 7.6 - 12.9 [facility] NRBC% auto 0.0 % [facility] NRBC Absolute 0.000 0.000 - 0.000 x10(3)/ L [facility] Blood specimen (specimen) 05/10/2016 8:52 AM EDT 05/10/2016 9:15 AM EDT Narrative Resulting Agency Comment Spec In Lab Freddy Mejias MD HEMATOLOGY ORDERABLE S [facility] [place] [address] * EKG 12 Lead (05/10/2016 7:53 AM EDT) Ventricular rate 50 BPM MUSE SYSTEM Atrial Rate 50 BPM MUSE SYSTEM P-R Interval 150 ms MUSE SYSTEM QRS Duration 86 ms MUSE SYSTEM Q-T Interval 438 ms MUSE SYSTEM QTC Calculated (Bezet) 399 ms MUSE SYSTEM Calculated P [place] 55 degrees MUSE SYSTEM Calculated R [place] 61 degrees MUSE SYSTEM Calculated T [place] 36 degrees MUSE SYSTEM INTERPRETATION Sinus bradycardia Low voltage QRS Borderline ECG When compared with ECG of 10-MAY-2013 08:23, Nonspecific T wave abnormality no longer evident in Anterolateral leads Confirmed by MD ASPEN, EDWARD ([id number]) on 05/10/2016 12:03:03 PM MUSE SYSTEM 05/10/2016 7:53 AM EDT 05/10/2016 12:03 PM EDT Freddy Mejias MD ECG ORDERABLES Performing Organization Address [facility] Co de Phone Number MUSE SYSTEM * Scan Doc: Lab (05/03/2016) Historical Provider MEDIA MGR SCAN EX T ORDR/RSLT documented in this encounter Visit Diagnoses Diagnosis Chest pain, unspecified type documented in this encounter Care Teams Shrub Grower Relationship Specialty Start Date End Date Aman Lawrence APRN [place] [address] [address] PCP - General 06/16/10 06/27/18 documented as of this encounter
--- OUTSIDE RECORDS SUMMARY | 2024-08-01 18:38 | XMS_ITS | Encounter Summary ---
Author Organization [facility] Address [facility] [place] [address] Care Team Providers Care Auto Air Conditioning Installer Name Role Phone Aman Lawrence APRN Primary Care Provider +1 -[phone] Reason for Visit * Reason Comments Chest Pain Coronary Artery Disease Encounter Details Date Type Department Care Team (Latest Contact Info) Description 06/14/2016 9:00 AM EST Office Visit Cardiology at [address] [address] Freddy Mejias MD [facility] [address] Atherosclerosis of [place] coronary artery of [place] heart without angina pectoris; History of cigarette [...] in this encounter Progress Notes * Freddy Meijas MD - 06/14/2016 9:00 AM EST SUBJECTIVE: [...] List Diagnosis ??? Osteoporosis DEXA done at [facility] on 10/29/15: osteoporosis at the [...] ENDOSCOPY performed by DEE WRIGHT at [facility] ENDOSCOPY ??? Abdomen surgery ??? Hysterectomy ??? Pro upper gi endoscopy, biopsy N/A 12/03/2015 EGD WITH BIOPSY performed by Ken Sanders MD at [facility] ENDOSCOPY No family history on file. [...] Social history: , no children. Lives in [place]. 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 Smoking: Active smoker, 2ppd [...] complex vitamins (B COMPLEX-VITAMIN B12) tablet ??? fcruykivpqbq-yfqm-jxecjaza (COMPLETE MULTIVITAMIN) Tab tablet 1 Tablet(s), PO, Once daily ??? calcium citrate-vitamin D (CITRACAL+D) 315-200 mg-unit per tablet 2 Tablet(s), PO, Twice daily ??? ergocalciferol (VITAMIN D) 50,000 unit capsule [id number], PO, TWICE a week ??? isosorbide mononitrate [...] this encounter Visit Diagnoses Diagnosis Atherosclerosis of [place] coronary artery of [place] heart without angina pectoris History of cigarette smoking documented in this encounter Care Teams Auto Air Conditioning Installer Relationship Specialty Start Date End Date Aman Lawrence APRN [address] [place] [address] PCP - General 06/16/10 06/27/18 documented as of this encounter
--- OUTSIDE RECORDS SUMMARY | 2024-08-01 18:38 | XMS_ITS | Encounter Summary ---
Author Organization [facility] Address [facility] [place] [address] Care Team Providers Care Specimen Preparation Assistant Name Role Phone Yisel Marroquin MD Primary Care Provider Unavail able Encounter Details Date Type Department Care Team (Late st Contact Info) Description 02/14/2018 Abstract [place] Conversion Results [address] [place] [address] Apd Conversion, Flowsheet Provider, Social History Tobacco [...] on filedocumented in this encounter Care Teams Specimen Preparation Assistant Relationship Specialty Start Date End Date Yisel Marroquin MD PCP - General 11/13/18 03/05/19 documented as of this encounter
--- OUTSIDE RECORDS SUMMARY | 2024-08-01 18:38 | XMS_ITS | Encounter Summary ---
[place] [address] Care Team Providers Care Household Worker Name Role Phone Yisel Marroquin MD Primary Care Provider Unavail able Encounter Details Date Type Department Care Team (Late st Contact Info) Description 01/04/2018 Orders Only Radiology and Cardiology Results [address] [place] [address] Apd Conversion, Results Provider, Social [...] encounter Results * (ABNORMAL) Hemoglobin A1c (01/04/2018) Estimated Average Glucose 114.0(Exte rnal Lab) 82.5 - 116.9 KORI FLORES DAY CONVERSION Hemoglobin A1c 5.6(Software Qa Manager al Lab) 4.5 - 6.2 FLORES DAY CONVERSION 01/04/2018 Results Provider Apd Conversion MD JASON ESTRELLA ORDERABLES KORI FLORES DAY CONVERSION documented in this encounter Visit Diagnoses Not on filedocumented in this encounter Care Teams Household Worker Relationship Specialty Start Date End Date Yisel Marroquin MD PCP - General 11/13/18 03/05/19 documented as of this encounter
--- OUTSIDE RECORDS SUMMARY | 2024-08-01 18:38 | XMS_ITS | Encounter Summary ---
Author Organization [facility] [place] [address] Care Team Providers Care Senior Android Developer Name Role Phone Yisel Marroquin MD Primary Care Provider Unavail able Encounter Details Date Type Department Care Team (Late st Contact Info) Description 09/20/2016 Orders Only Radiology and Cardiology Results [address] [place] [address] Apd Conversion, Results Provider, Social [...] encounter Results * (ABNORMAL) Hemoglobin A1c (09/20/2016) Estimated Average Glucose 119.8(ExtH ) 82.5 - 116.9 KORI FLORES DAY CONVERSION Hemoglobin A1c 5.8(Solid Waste Manager al Lab) 4.5 - 6.2 FLORES DAY CONVERSION 09/20/2016 Results Provider Apd Conversion MD JASON ESTRELLA ORDERABLES KORI FLORES DAY CONVERSION documented in this encounter Visit Diagnoses Not on filedocumented in this encounter Care Teams Senior Android Developer Relationship Specialty Start Date End Date Yisel Marroquin MD PCP - General 11/13/18 03/05/19 documented as of this encounter
--- OUTSIDE RECORDS SUMMARY | 2024-08-01 18:38 | XMS_ITS | Encounter Summary ---
Author Organization [facility] Address [facility] [place] [address] Care Team Providers Care Slate Splitter Name Role Phone Yisel Marroquin MD Primary Care Provider Unavail able Encounter Details Date Type Department Care Team (Late st Contact Info) Description 03/29/2017 Abstract [place] Conversion Results [address] [place] [address] Apd Conversion, Flowsheet Provider, Social History Tobacco [...] on filedocumented in this encounter Care Teams Slate Splitter Relationship Specialty Start Date End Date Yisel Marroquin MD PCP - General 11/13/18 03/05/19 documented as of this encounter
--- OUTSIDE RECORDS SUMMARY | 2024-08-01 18:38 | XMS_ITS | Encounter Summary ---
Author Organization [facility] [place] [address] Care Team Providers Care Braille Duplicating Machine Operator Name Role Phone Yisel Marroquin MD Primary Care Provider Unavail able Encounter Details Date Type Department Care Team (Late st Contact Info) Description 02/28/2018 Abstract [place] Conversion Results [address] [place] [address] Apd Conversion, Flowsheet Provider, Social History Tobacco [...] on filedocumented in this encounter Care Teams Braille Duplicating Machine Operator Relationship Specialty Start Date End Date Yisel Marroquin MD PCP - General 11/13/18 03/05/19 documented as of this encounter
--- OUTSIDE RECORDS SUMMARY | 2024-08-01 18:38 | XMS_ITS | Encounter Summary ---
Author Organization [facility] Address [facility] [place] [address] Care Team Providers Care Seed Sales Manager Name Role Phone Aman Lawrence APRN Primary Care Provider [phone] [phone] Encounter Details Date Type Department Care Team (Late st Contact Info) Description 05/19/2016 Telephone Cardiology at [address] [address] Freddy Mejias MD [facility] [place] [address] Social History Tobacco Use Types Packs/Day Years [...] filedocumented in this encounter Care Teams Seed Sales Manager Relationship Specialty Start Date End Date Aman Lawrence APRN [address] [place] [address] PCP - General 06/16/10 06/27/18 documented as of this encounter
--- OUTSIDE RECORDS SUMMARY | 2024-08-01 18:38 | XMS_ITS | Encounter Summary ---
[place] [address] Care Team Providers Care Pig Machine Operator Name Role Phone Yisel Marroquin MD Primary Care Provider Unavail able Encounter Details Date Type Department Care Team (Late st Contact Info) Description 01/04/2018 Orders Only Radiology and Cardiology Results [address] [place] [address] Apd Conversion, Results Provider, Social [...] encounter Results * (ABNORMAL) Lipid Panel (01/04/2018) Cholesterol/HDL Ratio 3.4(Exter nal Lab) 3.2 - 4.4 KORI FLORES DAY CONVERSION VLDL 30.8(Exte rnal Lab) KORI FLORES DAY CONVERSION LDL Cholesterol 63(Trust Administrative Assistant al Lab) KORI FLORES DAY CONVERSION HDL Cholesterol 40(Trust Administrative Assistant al Lab) 40 - 60 KORI FLORES DAY CONVERSION Triglyceride 154(ExtH) 30 - 150 KORI P NATALEE DAY CONVERSION Cholesterol, Total 134(Exter nal Lab) 50 - 200 KORI FLORES DAY CONVERSION 01/04/2018 Results Provider Apd Conversion MD JASON ESTRELLA ORDERABLES KORI FLORES DAY CONVERSION documented in this encounter Visit Diagnoses Not on filedocumented in this encounter Care Teams Pig Machine Operator Relationship Specialty Start Date End Date Yisel Marroquin MD PCP - General 11/13/18 03/05/19 documented as of this encounter
--- OUTSIDE RECORDS SUMMARY | 2024-08-01 18:39 | XMS_ITS | Encounter Summary ---
Author Organization [place] [address] Care Team Providers Care Driver Medic Name Role Phone Aman Lawrence APRN Primary Care Provider +1 [phone] Encounter Details Date Type Department Care Team (Late st Contact Info) Description 10/02/2015 Telephone [place] [address] Tamar Guerra, RD [facility] [place] [address] Social History Tobacco Use Types Packs/Day Years [...] oz. Fluid daily. 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 Plan: Rec. Continue with NSA CIB 3 x daily, providing ~40 g protein. Suggested d/c Ensure and try Atkins Shakes, Low CHO Slim Fast or Boost Glucose Control (all available at [employer]) to aid in meeting protein needs. Continue to try solid food as tolerated: Bermudian Yogurt, cottage cheese, apple sauce, hard boiled eggs, toast, etc. Goal of 48+ oz. Water daily. Will f/u with program SENIOR GAME DESIGNER for next steps. documented in this encounter Plan of Treatment Not on file documented as of this encounter Visit Diagnoses Not on filedocumented in this encounter Care Teams Driver Medic Relationship Specialty Start Date End Date Aman Lawrence [place] [address] [place] [address] PCP - General 06/16/10 06/27/18 documented as of this encounter
--- OUTSIDE RECORDS SUMMARY | 2024-08-01 18:39 | XMS_ITS | Encounter Summary ---
Author Organization [facility] Address [facility] [place] [address] Care Team Providers Care Vp Biology Name Role Phone Yisel Marroquin MD Primary Care Provider Unavail able Encounter Details Date Type Department Care Team (Late st Contact Info) Description 05/01/2015 Abstract [place] Conversion Results [address] [place] [address] Apd Conversion, Flowsheet Provider, Social History Tobacco [...] on filedocumented in this encounter Care Teams Vp Biology Relationship Specialty Start Date End Date Yisel Marroquin MD PCP - General 11/13/18 03/05/19 documented as of this encounter
--- OUTSIDE RECORDS SUMMARY | 2024-08-01 18:39 | XMS_ITS | Encounter Summary ---
Author Organization [facility] Address [facility] [place] [address] Care Team Providers Care Hull Outfit Supervisor Name Role Phone Yisel Marroquin MD Primary Care Provider Unavail able Encounter Details Date Type Department Care Team (Late st Contact Info) Description 10/29/2015 Interpretation Only Radiology [address] [facility] [place] [address] Unknown None Social History Tobacco Use Types [...] 11:36 AM EDT APD Historical Result Principal Consultant [employer]. Vice President [employer] (Ex ): ??MIRIAM Santana?[place] DXA SCAN BONE DENSITY: INDICATION: ??Postmenopausal. ??Medications, [...] in 1 year. Miriam Hardy MD MR/mn [id number] Procedure Note Unknown - 01/22/2019 APD Historical Result Principal Consultant [employer]. Vice President [employer] (Ex ): MIRIAM HARDY DXA SCAN BONE DENSITY: INDICATION: [...] appropriate in 1 year. Miriam Hardy MD /cornelio [id number] Unknown IMG DEXA ORDERABLES documented in this encounter Visit Diagnoses Not on filedocumented in this encounter Care Teams Hull Outfit Supervisor Relationship Specialty Start Date End Date Yisel Marroquin MD PCP - General 11/13/18 03/05/19 documented as of this encounter
--- OUTSIDE RECORDS SUMMARY | 2024-08-01 18:39 | XMS_ITS | Encounter Summary ---
Author Organization [facility] Address [facility] [place] [address] Care Team Providers Care Landscaping Crew Leader Name Role Phone Hoang Castellanos APRN Primary Care Provider Reason for Visit * Reason Comments Medication Refill Encounter Details Date Type Department Care Team (Late st Contact Info) Description 07/12/2014 Refill [place] [address] Tamar Kay MD [facility] [place] [address] Social History Tobacco Use Types Packs/Day Years [...] slept in a jail (including now)? No 12/01/2021 Sex and Gender [...] documented as of this encounter Care Teams Landscaping Crew Leader Relationship Specialty Start Date End Date Hoang Castellanos, SAM [address] [place] [address] PCP - General Family Medicine 03/12/20 documented as of this encounter
--- OUTSIDE RECORDS SUMMARY | 2024-08-01 18:39 | XMS_ITS | Encounter Summary ---
Author Organization [facility] [place] [address] Care Team Providers Care Shortage Worker Name Role Phone Aman Lawrence APRN Primary Care Provider [phone] [phone] Encounter Details Date Type Department Care Team (Late st Contact Info) Description 07/15/2014 Abstract Family Practice at [address] [id number] Sadie Britton, RN Social History Tobacco Use Types Packs/Day [...] on filedocumented in this encounter Care Teams Shortage Worker Relationship Specialty Start Date End Date Aman Lawrence APRN [address] [place] [address] PCP - General 06/16/10 06/27/18 documented as of this encounter
--- OUTSIDE RECORDS SUMMARY | 2024-08-01 18:39 | XMS_ITS | Encounter Summary ---
[place] [address] Care Team Providers Care Brake Coupler Dinkey Name Role Phone Yisel Marroquin MD Primary Care Provider Unavail able Encounter Details Date Type Department Care Team (Late st Contact Info) Description 12/19/2013 Orders Only Radiology and Cardiology Results [address] [place] [address] Apd Conversion, Results Provider, Social [...] this encounter Results * (ABNORMAL) TSH (12/19/2013) Thyroid Stimulating Hormone 2.810(Ext ernal Lab) 0.358 - 3.74 KORI GARCIA CONVERSION 12/19/2013 Results Provider Apd Conversion MD JASON ESTRELLA ORDERABLES KORI FLORES DAY CONVERSION documented in this encounter Visit Diagnoses Not on filedocumented in this encounter Care Teams Brake Coupler Dinkey Relationship Specialty Start Date End Date Yisel Marroquin MD PCP - General 11/13/18 03/05/19 documented as of this encounter
--- OUTSIDE RECORDS SUMMARY | 2024-08-01 18:39 | XMS_ITS | Encounter Summary ---
[place] [address] Care Team Providers Care Retail Key Holder Name Role Phone Yisel Marroquin MD Primary Care Provider Unavail able Encounter Details Date Type Department Care Team (Late st Contact Info) Description 10/29/2015 Orders Only Radiology and Cardiology Results [address] [place] [address] Apd Conversion, Results Provider, Social [...] 81(Externa l Lab) 8 - 388 KORI GARCIA CONVERSION 10/29/2015 Results Provider Apd Conversion MD JASON ESTRELLA ORDERABLES KORI FLORES DAY CONVERSION documented in this encounter Visit Diagnoses Not on filedocumented in this encounter Care Teams Retail Key Holder Relationship Specialty Start Date End Date Yisel Marroquin MD PCP - General 11/13/18 03/05/19 documented as of this encounter
--- OUTSIDE RECORDS SUMMARY | 2024-08-01 18:39 | XMS_ITS | Encounter Summary ---
Author Organization [facility] Address One [facility] [place] [address] Care Team Providers Care Civil Service Clerk Name Role Phone Yisel Marroquin MD Primary Care Provider Unavail able Encounter Details Date Type Department Care Team (Late st Contact Info) Description 02/10/2014 Interpretation Only Radiology [address] [facility] [place] [address] Unknown None Social History Tobacco Use Types [...] 5:07 PM EDT APD Historical Result Principal Game Designer: ??JENNY ?KAYLIE SUPINE ABDOMEN: Supine views of the abdomen [...] clearly demonstrated by Radiography. Jenny Landa MD [facility]/mn [id number] CC: Procedure Note Unknown - 01/22/2019 APD Historical Result Principal Game Designer: JENNY LANDA SUPINE ABDOMEN: Supine views of [...] not clearlydemonstrated by Radiography. Jenny Landa MD [facility]/md [id number] CC: Unknown IMG DX ORDERABLES documented in this encounter Visit Diagnoses Not on filedocumented in this encounter Care Teams Civil Service Clerk Relationship Specialty Start Date End Date Yisel Marroquin MD PCP - General 11/13/18 03/05/19 documented as of this encounter
--- OUTSIDE RECORDS SUMMARY | 2024-08-01 18:39 | XMS_ITS | Encounter Summary ---
[place] [address] Care Team Providers Care Bucket Chucker Name Role Phone Yisel Marroquin MD Primary Care Provider Unavail able Encounter Details Date Type Department Care Team (Late st Contact Info) Description 10/21/2014 Orders Only Radiology and Cardiology Results [address] [place] [address] Apd Conversion, Results Provider, Social [...] encounter Results * (ABNORMAL) Hemoglobin A1c (10/21/2014) Estimated Average Glucose 128.4(ExtH ) 82.5 - 116.9 KORI FLORES DAY CONVERSION Hemoglobin A1c 6.1(Detail Sergeant al Lab) 4.5 - 6.2 KORI FLORES DAY CONVERSION 10/21/2014 Results Provider Apd Conversion MD JASON ESTRELLA ORDERABLES KORI FLORES DAY CONVERSION documented in this encounter Visit Diagnoses Not on filedocumented in this encounter Care Teams Bucket Chucker Relationship Specialty Start Date End Date Yisel Marroquin MD PCP - General 11/13/18 03/05/19 documented as of this encounter
--- OUTSIDE RECORDS SUMMARY | 2024-08-01 18:39 | XMS_ITS | Encounter Summary ---
Author Organization [facility] Address [facility] [place] [address] Care Team Providers Care Food Service Attendant Name Role Phone Yisel Marroquin MD Primary Care Provider Unavail able Encounter Details Date Type Department Care Team (Late st Contact Info) Description 01/14/2014 Abstract [place] Conversion Results [address] [place] [address] Apd Conversion, Flowsheet Provider, Social History Tobacco [...] on filedocumented in this encounter Care Teams Food Service Attendant Relationship Specialty Start Date End Date Yisel Marroquin MD PCP - General 11/13/18 03/05/19 documented as of this encounter
--- OUTSIDE RECORDS SUMMARY | 2024-08-01 18:39 | XMS_ITS | Encounter Summary ---
Author Organization [facility] [place] [address] Care Team Providers Care Chief Data Officer Name Role Phone Yisel Marroquin MD Primary Care Provider Unavail able Encounter Details Date Type Department Care Team (Late st Contact Info) Description 08/04/2015 Abstract [place] Conversion Results [address] [place] [address] Apd Conversion, Flowsheet Provider, Social History Tobacco [...] filedocumented in this encounter Care Teams Chief Data Officer Relationship Specialty Start Date End Date Yisel Marroquin MD PCP - General 11/13/18 03/05/19 documented as of this encounter
--- OUTSIDE RECORDS SUMMARY | 2024-08-01 18:39 | XMS_ITS | Encounter Summary ---
Author Organization [facility] [place] [address] Care Team Providers Care Audioprosthologist Name Role Phone Aman Lawrence APRN Primary Care Provider +1 -[phone] Encounter Details Date Type Department Care Team (Late st Contact Info) Description 10/10/2015 Telephone [place] [address] Tamar Guerra, RD [facility] [place] [address] Social History Tobacco Use Types Packs/Day Years [...] mainly soft foods. Typical Day is: NSA [place] Instant Breakfast in the AM and PM, [...] on filedocumented in this encounter Care Teams Audioprosthologist Relationship Specialty Start Date End Date Aman Lawrence APRN [address] [place] [address] PCP - General 06/16/10 06/27/18 documented as of this encounter
--- OUTSIDE RECORDS SUMMARY | 2024-08-01 18:39 | XMS_ITS | Encounter Summary ---
[place] [address] Care Team Providers Care Shelter Case Manager Name Role Phone Aman Lawrence APRN Primary Care Provider [phone] [phone] Encounter Details Date Type Department Care Team (Late st Contact Info) Description 03/11/2014 4:00 PM EDT [place] [phone] CLINIC, Humberto Bah MD Kidney stone (Primary Dx) Discharge Disposition: Home [...] for f/u. She was seen in the [facility] ED on 02/11/14 with left flank pain. [...] GI ENDOSCOPY performed by DEE WRIGHT at [facility] END[facility]COPY ??? Abdomen surgery ??? Hysterectomy [...] complex vitamins (B COMPLEX-VITAMIN B12) tablet ??? qiwsgxharjab-vdrw-amkomirc (COMPLETE MULTIVITAMIN) Tab tablet 1 Tablet(s), PO, Once daily ??? calcium citrate-vitamin D (CITRACAL+D) 315-200 mg-unit per tablet 2 Tablet(s), PO, Twice daily ??? ergocalciferol (VITAMIN D) 50,000 unit capsule [id number], PO, TWICE a week Allergies Allergen Reactions [...] kidney documented in this encounter Care Teams Shelter Case Manager Relationship Specialty Start Date End Date Aman Lawrence APRN [address] [place] [address] PCP - General 06/16/10 06/27/18 documented as of this encounter
--- OUTSIDE RECORDS SUMMARY | 2024-08-01 18:39 | XMS_ITS | Encounter Summary ---
[place] [address] Care Team Providers Care Employment And Claims Aide Name Role Phone Yisel Marroquin MD Primary Care Provider Unavail able Encounter Details Date Type Department Care Team (Late st Contact Info) Description 10/29/2015 Orders Only Radiology and Cardiology Results [address] [place] [address] Apd Conversion, Results Provider, Social [...] Results * (ABNORMAL) Vitamin D, 25-Hydroxy (10/29/2015) Vitamin D Total 25 OH 36.7(Exter nal Lab) 30.0 - 100.0 KORI CONVERSION 10/29/2015 Results Provider Apd Conversion MD JASON ESTRELLA ORDERABLES KORI FLORES DAY CONVERSION documented in this encounter Visit Diagnoses Not on filedocumented in this encounter Care Teams Employment And Claims Aide Relationship Specialty Start Date End Date Yisel Marroquin MD PCP - General 11/13/18 03/05/19 documented as of this encounter
--- OUTSIDE RECORDS SUMMARY | 2024-08-01 18:39 | XMS_ITS | Encounter Summary ---
[place] [address] Care Team Providers Care Log Handling Equipment Operator Name Role Phone Aman Lawrence APRN Primary Care Provider +1 [phone] Encounter Details Date Type Department Care Team (Late st Contact Info) Description 12/03/2015 8:22 AM EDT Anesthesia [place] [address] [facility] DR [place] [address] Francisco Javier Lord MD [facility] [address] [place]OLOG[place] [address] Anesthesia Record Procedure Summary Procedure Name Responsible [...] 0807; metacarpal vein right (top of hand); ostl-wqg-jnzncx catheter system; 22 gauge; distraction; 12/03/15; 0852 [...] Hi MD - 12/03/2015 9:18 AM EDT [facility] Department of Anesthesiology Post-procedure Note Patient: Jeannie Rico Procedure Summary Date Anesthesia Start Anesthesia Stop Room / Location 12/03/15 0822 0836 [facility] 7 / [facility] Procedure Diagnosis Surgeon Responsible Provider EGD WITH BIOPSY (N/A Trunk) (? ulcer, Heartburn) Ken Sanders MD Chiang, Laura M, MD All Anesthesia Providers: Anesthesiologist: Nilam Hi MD SHANK CEMENTER HAND: Dinesh Babin CRNA Last (1hr) Vitals: BP Temp Pulse Resp SpO2 Patient Location: PACU/MERGED WITH [facility] Level of Consciousness: Conscious but Sleepy [...] GI ENDOSCOPY performed by DEE WRIGHT at [facility] ??? Abdomen surgery ??? Hysterectomy History [...] risks discussed with patient. Plan discussed with SHANK CEMENTER HAND. PAT Staff Note documented in this encounter Miscellaneous Notes * Addendum Note - Nilam Hi MD - 12/05/2015 12:19 PM EDT Addendum created 12/05/15 1219 by Nilam Hi MD Modules edited: Notes Section Notes Section: File: [id number] documented in this encounter Plan of Treatment [...] mg documented in this encounter Care Teams Log Handling Equipment Operator Relationship Specialty Start Date End Date Aman Lawrence APRN [address] [place] [address] PCP - General 06/16/10 06/27/18 documented as of this encounter
--- OUTSIDE RECORDS SUMMARY | 2024-08-01 18:39 | XMS_ITS | Encounter Summary ---
[place] [address] Care Team Providers Care Glazier Helper Name Role Phone Yisel Marroquin MD Primary Care Provider Unavail able Encounter Details Date Type Department Care Team (Late st Contact Info) Description 05/14/2015 Orders Only Radiology and Cardiology Results [address] [place] [address] Apd Conversion, Results Provider, Social [...] this encounter Results * (ABNORMAL) TSH (05/14/2015) Thyroid Stimulating Hormone 1.530(Ext ernal Lab) 0.358 - 3.740 KORI GARCIA CONVERSION 05/14/2015 Results Provider Apd Conversion MD JASON ESTRELLA ORDERABLES KORI FLORES DAY CONVERSION documented in this encounter Visit Diagnoses Not on filedocumented in this encounter Care Teams Glazier Helper Relationship Specialty Start Date End Date Yisel Marroquin MD PCP - General 11/13/18 03/05/19 documented as of this encounter
--- OUTSIDE RECORDS SUMMARY | 2024-08-01 18:39 | XMS_ITS | Encounter Summary ---
[place] [address] Care Team Providers Care Senior Cost Estimator Name Role Phone Aman Perla APRN Primary Care Provider +1 [phone] Encounter Details Date Type Department Care Team (Latest Contact Info) Description 11/20/2015 Multidisciplinary Ca re Committee [place] [address] Sidra Del Toro APRN Social History Tobacco [...] no Evaluation by a member of the [facility] Bariatric Surgery Program previously: + Case presentation by: Dr Williamson Staff present at today's meeting: Dee Wright MD, Bundle Tier, Skinny oGmez MD, Meena Pena MD, Rajendra Williamson MD, [...] DEE WRIGHT at [facility] ENDOSCOPY ??? Abdomen surgery ??? Hysterectomy Plan of care: Smoking cessation, EGD on 12/02, may be candidate for apollo overstitch documented in this encounter Plan of Treatment Not on file documented as of this encounter Visit Diagnoses Not on filedocumented in this encounter Care Teams Senior Cost Estimator Relationship Specialty Start Date End Date Aman Per[place] [address] [place] [address] PCP - General 06/16/10 06/27/18 documented as of this encounter
--- OUTSIDE RECORDS SUMMARY | 2024-08-01 18:39 | XMS_ITS | Encounter Summary ---
[place] [address] Care Team Providers Care Lockstitch Coat Joiner Name Role Phone Yisel Marroquin MD Primary Care Provider Unavail able Encounter Details Date Type Department Care Team (Late st Contact Info) Description 12/19/2013 Orders Only Radiology and Cardiology Results [address] [place] [address] Apd Conversion, Results Provider, Social [...] encounter Results * (ABNORMAL) Lipid Panel (12/19/2013) Cholesterol/HDL Ratio 2.7(ExtL) 3.2 - 4.4 KORI FLORES DAY CONVERSION VLDL 21.8(Exte rnal Lab) KORI FLORES DAY CONVERSION LDL Cholesterol 45(Organic Lab Worker al Lab) KORI FLORES DAY CONVERSION HDL Cholesterol 40(Organic Lab Worker al Lab) 40 - 60 KORI FLORES DAY CONVERSION Triglyceride 109(Exter nal Lab) 30 - 150 KORI FLORES DAY CONVERSION Cholesterol, Total 107(Exter nal Lab) 0 - 200 KORI FLORES DAY CONVERSION 12/19/2013 Results Provider Apd Conversion MD JASON ESTRELLA ORDERABLES KORI FLORES DAY CONVERSION documented in this encounter Visit Diagnoses Not on filedocumented in this encounter Care Teams Lockstitch Coat Joiner Relationship Specialty Start Date End Date Yisel Marroquin MD PCP - General 11/13/18 03/05/19 documented as of this encounter
--- OUTSIDE RECORDS SUMMARY | 2024-08-01 18:39 | XMS_ITS | Encounter Summary ---
Author Organization [facility] Address One [facility] [place] [address] Care Team Providers Care Commercial Green Building Architect Name Role Phone Yisel Marroquin MD Primary Care Provider Unavail able Encounter Details Date Type Department Care Team (Late st Contact Info) Description 02/10/2014 Interpretation Only Radiology [address] [facility] [place] [place] [address] Unknown None Social History Tobacco Use Types [...] 5:07 PM EDT APD Historical Result Principal Operations Program Manager: ??JENNY ??SYEDA CT ABDOMEN AND PELVIS WITHOUT [...] on February 10, 2014. Jenny Landa MD [facility]/ct [id number] CC: Procedure Note Unknown - 01/22/2019 APD Historical Result Principal Operations Program Manager: JENNY LANDA CT ABDOMEN AND PELVIS WITHOUT [...] on February 10, 2014. Jenny Landa MD [facility]/ct [id number] CC: Unknown IMG CT ORDERABLES documented in this encounter Visit Diagnoses Not on filedocumented in this encounter Care Teams Commercial Green Building Architect Relationship Specialty Start Date End Date Yisel Marroquin MD PCP - General 11/13/18 03/05/19 documented as of this encounter
--- OUTSIDE RECORDS SUMMARY | 2024-08-01 18:39 | XMS_ITS | Encounter Summary ---
[place] [address] Care Team Providers Care Animal Therapist Name Role Phone Aman Lawrence APRN Primary Care Provider [phone] [phone] Reason for Referral * Consultation (Routine) - Closed Specialty Diagnoses / Procedures Referred By Vanita dimas Referred To Contact Gastroenterology Diagnoses Gastroesophageal reflux disease, esophagitis presence not specified Status post bariatric surgery Intestinal malabsorption, unspecified type Sidra Del Toro APRN [facility] [place] [address] [facility] [address] [place] [address] Referral ID Status Reason Start Date Expiration Date V isits Requested Visits Authorized [id number] Closed Test Only 10/23/2015 10/22/2016 1 1 Reason for Visit * Reason Comments Follow-up Bariatric Surgery Pr ogram follow up Encounter Details Date Type Department Care Team (Latest Contact Info) Description 10/23/2015 10:30 AM EDT Office [place] [address] Sidra Del Toro APRN Gastroesophageal reflux disease, esophagitis presence not specified; [...] Niecy Darden - 10/23/2015 11:14 AM EDT BSP Admin coordinator Rhonda: [phone] Dietitian: [phone] Surgeons/ nurse practitioner: [phone] Nurse line: [phone] Your excess body weight lost: 36% Continue to with the hard work. Testin. Labwork: Today. Go to [facility], which is 1 flight below [...] after surgery, and yearly thereafter. Please call [phone] if you do not receive an appointment by 3-4 weeks prior to the expected visit. Medications: 1. Ask Aman about the plavix medication- when to stop before to the endoscopy 2. recommendations pending labwork. Referrals: Upper endoscopy. The date of the study will like change Date of Procedure: 12/03/15 Arrival Time: 7:30 AM Location: [facility], Endoscopy Center - please park in [...] cabs or buses. We do request your operator and truck driver stay at [facility] [place] [place] while you are here foryour procedure. If you have read the enclosed information thoroughly and still have questions about what you have read, please call [phone] between the hours of 7:00am- 7:00pm, Tuesday-Tuesday and a nurse will assist you. If you have an urgent matter after hours, please call [phone] and ask to speak to the Gastroenterology Fellow java application engineer. If you need to reschedule your procedure please call: [phone]. The preparation for this procedure is no [...] of every month from 1-2 PM at [facility] [place]- no registration required Internet resources: www.[employer] www.LawPath www.[employer] www.ePropertyData (cat Alonzo) https://www.facebook.[email or web address]/[facility] [place] Bariatric surgery apps- [facility] [employer]: - Recipes for [...] 1/2 cup cottage cheese w/ peaches or Cameroonian yogurt Lunch Slimfast or Ensure SF PM Snack 1/2 cup cottage cheese and fruit Dinner CIB or Cameroonian yogurt or HB egg HS Snack She [...] 09/29/15 Primary care Epigastric pain EGD Pending 201508/24/10 Ba swallow Although the initial images showed contrast filling a mildly dilated pouch, withtime of contrast was clearly seen within the coushatta fundus indicating a leak. The site of [...] anxeity never Colonoscopy ? Mammogram - Pap CHIP 11/07/02 DEXA normal Problem List ??? Pre-operative [...] stable, on clopidogrel A. S/P hospitalization for [facility], ALF placement x 2 to 90% [...] stable with regular counseling bekah Smith in [place]. 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 Patient concerns at today's visit: she Would [...] blood in stool [] chronic diarrhea/ constipation SUPERVISOR COOK HOUSE: [] LMP: [] control [] menorrhagia [+] surgical menopause Heme/Lymph: [] excessive bruising [] blood donor in past year Psychiatric [] mental health concerns Other: Exercise/activity level: as per RD note Employment/social: disabled/ Health-related habits: Tobacco: 1 PPD Alcohol: none Dietary history: See dietitian note. Objective: General: 55 y.o. year-old female looks well, appears upbeat. She is accompanied to today's visit byher trimmer climber. Exam room with nauseating odor of nicotine Heart: RRR Lungs: CTA without wheezing Abdomen: soft, non-tender. Multiple upper abdominal scars, including upper midline, right subcostaland chevron scars well-healed, without evidence of hernia. Extremities: no edema Vital signs:Blood pressure 139/71, pulse 55, temperature 36.8 ??C (98.2 ??F), resp. rate 19, wvuepb299.956 kg (238 lb), SpO2 98 %. Body [...] reviewed in detail with Jeannie and her manager of case. ?? She is unable to stay to have labwork done today, will be done at [facility]. Primary care office called to obtain copy [...] place prior to consideration of surgery, given terminologist risks associated with tobacco use including lifetime [...] [K90.9] documented in this encounter Care Teams Animal Therapist Relationship Specialty Start Date End Date Aman Lawrence APRN [address] [place] [address] PCP - General 06/16/10 06/27/18 documented as of this encounter
--- OUTSIDE RECORDS SUMMARY | 2024-08-01 18:39 | XMS_ITS | Encounter Summary ---
[place] [address] Care Team Providers Care Universal Branch Consultant Name Role Phone Aman Lawrence APRN Primary Care Provider [phone] [phone] Encounter Details Date Type Department Care Team (Late st Contact Info) Description 10/31/2015 Telephone [place] [address] Niecy Darden, RD Social History Tobacco Use [...] sliced chicken, turkey, and ham along with gabonese muffins and whole wheat tortillas. She has [...] on filedocumented in this encounter Care Teams Universal Branch Consultant Relationship Specialty Start Date End Date Aman Lawrence APRN [address] [place] [address] PCP - General 06/16/10 06/27/18 documented as of this encounter
--- OUTSIDE RECORDS SUMMARY | 2024-08-01 18:39 | XMS_ITS | Encounter Summary ---
Author Organization [facility] [place] [address] Care Team Providers Care Car Salesperson Name Role Phone Aman Lawrence APRN Primary Care Provider [phone] [phone] Encounter Details Date Type Department Care Team (Latest Contact Info) Description 12/03/2015 7:35 AM EDT - 12/03/2015 9:01 AM EDT Hospital En[place] [address] Ken Sanders MD [facility] [place] [address] Discharge Disposition: Home Social History Tobacco Use [...] better as expected. Tuesday-Tuesday Same Day Endo [phone] 7a-8p Otherwise contact [phone] and ask to speak to the permastone mechanic chemical reclamation equipment operator Follow-up care is a ramírez part of your treatment and safety. Be sure to make and go to all appointments, and call your doctor if you are having problems. Instructions have been reviewed and patient expresses understanding * Attachments The following attachments cannot be sent through Care Everywhere. * EGD (UPPER ENDOSCOPY) : POST-OP (NORTH KOREAN) documented in this encounter Medications at Time [...] vitamins (B COMPLEX-VITAMIN B12) tablet 09/23/2010 11/19/2016 ffwejvvlsyvw-uwah-uftac als (COMPLETE MULTIVITAMIN) Tab tablet 1 Tablet(s), PO, Once daily 09/23/2010 11/19/2016 calcium citrate-vitamin D (CITRACAL+D) 315-200 mg-unit per tablet 2 Tablet(s), PO, Twice daily 09/23/2010 11/19/2016 ergocalciferol (VITAMIN D) 50,000 unit capsule [id number], PO, TWICE a week 09/23/2010 11/19/2016 documented [...] Surgical Pathology Report (12/03/2015 8:39 AM EDT) Final Diagnosis [id number] ? Location: 4T; EA11; A The signing [...] ng: (T1) ??sns 12/05/2015 2:25 PM EDT [facility] GI Biopsy 12/03/2015 8:39 AM EDT 12/03/2015 8:39 AM EDT GI Biopsy 12/03/2015 8:39 AM EDT 12/03/2015 8:39 AM EDT Ken Sanders MD PATHOLOGY/CYTOLOGY O ALYSON Performing Organization Address [facility] [place] [address] * Specimen to Pathology (surgical or derm) (12/03/2015 8:39 AM EDT) AP Specimen 12/03/2015 8:39 AM EDT 12/03/2015 8:39 AM EDT Narrative [facility] - 12/03/2015 8:39 AM EDT Specimen requisition ordered. ??Separate Pathology report to follow Ken Sanders MD PATHOLOGY/CYTOLOGY Kate SHIELDS Performing Organization Address [facility] [place] [address] * Specimen to Pathology (surgical or derm) (12/03/2015 8:39 AM EDT) AP Specimen 12/03/2015 8:39 AM EDT 12/03/2015 8:39 AM EDT Narrative [facility] - 12/03/2015 8:39 AM EDT Specimen requisition ordered. ??Separate Pathology report to follow Ken Sanders MD PATHOLOGY/CYTOLOGY Kate SHIELDS Performing Organization Address [facility] [place] [place] [address] * UPPER GI ENDOSCOPY (12/03/2015 8:21 AM EDT) UPPER GI ENDOSCOPY [facility] Endoscopy Patient Name: Jeannie Trisha ? Procedure Date: 12/03/2015 8:21 AM ? Date of : 1960 ? Age: 55 ? Order #: [id number] ? Procedure: ? Upper GI endoscopy Indications: [...] Babin) documented in this encounter Care Teams Car Salesperson Relationship Specialty Start Date End Date Aman Lawrence APRN [address] [place] [address] PCP - General 06/16/10 06/27/18 documented as of this encounter
--- OUTSIDE RECORDS SUMMARY | 2024-08-01 18:39 | XMS_ITS | Encounter Summary ---
Author Organization [facility] Address [facility] [place] [address] Care Team Providers Care System Software Developer Name Role Phone Aman Lawrence APRN Primary Care Provider [phone] [phone] Reason for Visit * Reason Onset Date Comments Medication Refill 08/02/2013 Simvastatin Encounter Details Date Type Department Care Team (Late st Contact Info) Description 08/02/2013 Refill Cardiology at [address] [address] Freddy Mejias MD [facility] [place] [address] Medication Refill (Simvastatin) Social History Tobacco Use [...] Coronary atherosclerosis of unspecified type of vessel, tolowa dee-ni' or graft documented in this encounter Care Teams System Software Developer Relationship Specialty Start Date End Date Aman Lawrence APRN [address] [place] [address] PCP - General 06/16/10 06/27/18 documented as of this encounter
--- OUTSIDE RECORDS SUMMARY | 2024-08-01 18:39 | XMS_ITS | Encounter Summary ---
Author Organization [facility] Address [facility] [place] [address] Care Team Providers Care Grain Commodity Manager Name Role Phone Yisel Marroquin MD Primary Care Provider Unavail able Encounter Details Date Type Department Care Team (Late st Contact Info) Description 09/17/2014 Abstract [place] Conversion Results [address] [place] [address] Apd Conversion, Flowsheet Provider, Social History Tobacco [...] on filedocumented in this encounter Care Teams Grain Commodity Manager Relationship Specialty Start Date End Date Yisel Marroquin MD PCP - General 11/13/18 03/05/19 documented as of this encounter
--- OUTSIDE RECORDS SUMMARY | 2024-08-01 18:39 | XMS_ITS | Encounter Summary ---
Author Organization [facility] Address [facility] [place] [address] Care Team Providers Care Steam Shovel Oiler Name Role Phone Yisel Marroquin MD Primary Care Provider Unavail able Encounter Details Date Type Department Care Team (Late st Contact Info) Description 11/13/2015 Abstract [place] Conversion Results [address] [place] [address] Apd Conversion, Flowsheet Provider, Social History Tobacco [...] on filedocumented in this encounter Care Teams Steam Shovel Oiler Relationship Specialty Start Date End Date Yisel Marroquin MD PCP - General 11/13/18 03/05/19 documented as of this encounter
--- OUTSIDE RECORDS SUMMARY | 2024-08-01 18:39 | XMS_ITS | Encounter Summary ---
Author Organization [facility] [place] [address] Care Team Providers Care Senior Interactive Developer Name Role Phone Hoang Castellanos APRN Primary Care Provider Reason for Visit * Reason Comments Medication Refill Encounter Details Date Type Department Care Team (Late st Contact Info) Description 02/04/2014 Refill Intermediate [place]iac [place] [id number] Tamar Kay MD [facility] [place] [address] Social History Tobacco Use Types Packs/Day Years [...] documented as of this encounter Care Teams Senior Interactive Developer Relationship Specialty Start Date End Date Hoang Castellanos, SAM [address] [place] [place] [address] PCP - General Family Medicine 03/12/20 documented as of this encounter
--- OUTSIDE RECORDS SUMMARY | 2024-08-01 18:39 | XMS_ITS | Encounter Summary ---
[place] [address] Care Team Providers Care Front Office Supervisor Name Role Phone Aman Lawrence APRN Primary Care Provider [phone] [phone] Encounter Details Date Type Department Care Team (Late st Contact Info) Description 02/22/2014 3:50 PM EDT [place] [address] Jovany Cerda MD Kidney stone (Primary Dx) Discharge Disposition: [...] kidney stone. She was seen in the [facility] ED on 02/11/14 with left flank [...] GI ENDOSCOPY performed by DEE WRIGHT at [facility] ENDOSCOPY ??? Abdomen surgery ??? Hysterectomy [...] complex vitamins (B COMPLEX-VITAMIN B12) tablet ??? miigsswkfxaq-uqjm-wqhguawa (COMPLETE MULTIVITAMIN) Tab tablet 1 Tablet(s), PO, Once daily ??? calcium citrate-vitamin D (CITRACAL+D) 315-200 mg-unit per tablet 2 Tablet(s), PO, Twice daily ??? ergocalciferol (VITAMIN D) 50,000 unit capsule [id number], PO, TWICE a week Allergies Allergen Reactions [...] ? pm) Patient Info ID #: ? [id number] ?: ??[birth year] (53 yrs) Name: ? JEANNIE Lawson APOLINAR ?Visit Date: 03/11/2014 03:57 pm Performed By Performed By: ?Elsa Geurra RDMS Associate: ? Wilfrido Stuart DO Attending: ? Christiano SLADE, Elba Carbajal Referred By: ? JOVANY CERDA MD Service(s) Provided ??URETRO - Retroperitoneal Complete - [id number] ? [id number] Indications ??kidney stone Right Kidney Size (cm) [...] 03/11/2014 04:10 pm) Patient Info ID #: [id number] : [birth year] (53 yrs) Name: JEANNIE RICO Visit Date: 03/11/2014 03:57 pm Performed By Performed By: Elsa Guerra RDMS Associate: Wilfrido Stuart DO Attending: Elba Alvarado MD Referred By: JOVANY CERDA MD Service(s) Provided URETRO - Retroperitoneal Complete - [id number] Indications kidney stone Right Kidney Size (cm) [...] ? Ordered By: JOVANY CERDA ? MR#: [id number] ?LOC: ??5B ? /Sex: ??1960 (53 years), ? Female ? PROCEDURE: Urine Culture ?SOURCE: U CC ? COLLECTED: 02/22/2014 17:18 ? STARTED: 02/22/2014 17:19 ? FINAL REPORT ? Final Report ? Verified:2013 15:43 ? 1,000-9,000 cfu/ml Gram Positive organisms , probable contaminant ? [facility] Urine specimen obtained by clean catch procedure (specimen) 02/22/2014 5:18 PM EDT 02/22/2014 5:18 PM EDT Narrative Resulting Agency Comment Spec In Lab Jovany Cerda MD MICROBIOLOGY - [facility] AL ORDERABLES Performing Organization Address City/State/[facility] Co de Phone Number CERNER MILLENNIUM * (ABNORMAL) Urinalysis with microscopic (02/22/2014 4:35 PM EDT) Glucose, Urine Dipstick Negative Negative mg/dL CERNER MILLENNIUM Protein, Urine Dipstick Trace(A) Negative mg/dL CERNER MILLENNIUM Bilirubin, Urine Dipstick Negative Negative mg/dL CERNER MILLENNIUM Comment: Clinical correlation required for positive Urine Bilirubin results as false positive may occur with some drugs and drug related products. If a false positive is suspected a serum total bilirubin should be considered if clinically indicated. Urobilinogen, Urine Dipstick 2.0(A) Normal mg/dL CERNER MILLENNIUM pH, Urn (dipstick) 5.5 5.0 - 8.0 CERNER MILLENNIUM Blood, Urine Dipstick Negative Negative mg/dL CERNER MILLENNIUM Ketone, Urine Dipstick Negative Negative mg/dL CERNER MILLENNIUM Nitrite, Urine Dipstick Negative Negative CERNER MILLENNIUM Leukocytes, Urine Dipstick Small(A) Negative mcL CERNER MILLENNIUM Appearance, Urine Dipstick Clear Clear CERNER MILLENNIUM Specific Douglas Urine Automated 1.019 1.002 - 1.030 CERNER MILLENNIUM Color, Urine Dipstick Yellow Yellow CERNER MILLENNIUM RBC, Urine 3 0 - 4 /HPF CERNER MILLENNIUM WBC, Urine 8(H) 0 - 5 /HPF CERNER MILLENNIUM Transitional Epithelial Cells, Urine <1 <=1 /HPF CERNER MILLENNIUM Hyaline Casts, Urine 18(H) 0 - 2 /LPF CERNER MILLENNIUM Urine specimen (specimen) URINE SPECIMEN OBTAINED BY CLEAN CATCH PROCEDURE / Unknown 02/22/2014 4:35 PM EDT 02/22/2014 4:58 PM EDT Narrative Resulting Agency Comment Spec In Lab Jovany Cerda MD URINE ORDERABLES [facility] documented in this encounter Visit Diagnoses Diagnosis Kidney stone- Primary Calculus of kidney Kidney stone Calculus of kidney documented in this encounter Care Teams Front Office Supervisor Relationship Specialty Start Date End Date Aman Lawrence APRN [address] [place] [place] [address] PCP - General 06/16/10 06/27/18 documented as of this encounter
--- OUTSIDE RECORDS SUMMARY | 2024-08-01 18:39 | XMS_ITS | Encounter Summary ---
Author Organization [facility] Address [address] [facility] [place] [address] Care Team Providers Care Deadener Name Role Phone Yisel Marroquin MD Primary Care Provider Unavail able Encounter Details Date Type Department Care Team (Late st Contact Info) Description 01/25/2015 Interpretation Only Radiology [address] [facility] [place] [address] Unknown None Social History Tobacco Use Types [...] 2:54 PM EDT APD Historical Result Principal Scada Engineer: ??ISAK ??ESCHBACH RIGHT ANKLE: INDICATION: ??Injury. COMPARISON: ??Right foot, January 25, 2015. FINDINGS: Three views of the right ankle show soft tissue swelling over the lateral malleolus. ??Three is no fracture, dislocation, or joint effusion. ??The base of the 5th metatarsal is intact. ??The ankle mortise is symmetric. IMPRESSION: Acute injury confined to the lateral soft tissues. Isak DO [place] /[place] [id number] CC: Procedure Note Unknown - 01/22/2019 APD Historical Result Principal Scada Engineer: ISAK BENAVIDES RIGHT ANKLE: INDICATION: Injury. COMPARISON: Right foot, January 25, 2015. FINDINGS: Three views of the right ankle show soft tissue swelling over the lateralmalleolus. Three is no fracture, dislocation, or joint effusion. The base of the 5thmetatarsal is intact. The ankle mortise is symmetric. IMPRESSION: Acute injury confined to the lateral soft tissues. Isak DO Va KE/mn [id number] CC: Unknown IMG DX ORDERABLES documented in this encounter Visit Diagnoses Not on filedocumented in this encounter Care Teams Deadener Relationship Specialty Start Date End Date Yisel Marroquin MD PCP - General 11/13/18 03/05/19 documented as of this encounter
--- OUTSIDE RECORDS SUMMARY | 2024-08-01 18:39 | XMS_ITS | Encounter Summary ---
Author Organization [facility] [address] Care Team Providers Care Parts Counterman Name Role Phone Yisel Marroquin MD Primary Care Provider Unavail able Encounter Details Date Type Department Care Team (Late st Contact Info) Description 10/29/2015 Orders Only Radiology and Cardiology Results [address] [place] [address] Apd Conversion, Results Provider, Social [...] Results * (ABNORMAL) Vitamin B12 (10/29/2015) Vitamin B12 >2000(Ext ) 211 - [address] CONVERSION 10/29/2015 Results Provider Apd Conversion MD JASON ESTRELLA ORDERABLES [address] DAY CONVERSION documented in this encounter Visit Diagnoses Not on filedocumented in this encounter Care Teams Parts Counterman Relationship Specialty Start Date End Date Yisel Marroquin MD PCP - General 11/13/18 03/05/19 documented as of this encounter
--- OUTSIDE RECORDS SUMMARY | 2024-08-01 18:39 | XMS_ITS | Encounter Summary ---
Author Organization [facility] Address [facility] [place] [address] Care Team Providers Care De Alcoholizer Name Role Phone Yisel Marroquin MD Primary Care Provider Unavail able Encounter Details Date Type Department Care Team (Late st Contact Info) Description 08/12/2014 Abstract [place] Krystal Conversion Results [address] [place] [address] Apd Conversion, Flowsheet Provider, Social History Tobacco [...] on filedocumented in this encounter Care Teams De Alcoholizer Relationship Specialty Start Date End Date Yisel Marroquin MD PCP - General 11/13/18 03/05/19 documented as of this encounter
--- OUTSIDE RECORDS SUMMARY | 2024-08-01 18:39 | XMS_ITS | Encounter Summary ---
Author Organization [facility] Address [facility] [place] [address] Care Team Providers Care Buttermaker Helper Name Role Phone Yisel Marroquin MD Primary Care Provider Unavail able Encounter Details Date Type Department Care Team (Late st Contact Info) Description 05/16/2014 Abstract [place] Conversion Results [address] [place] [address] Apd Conversion, Flowsheet Provider, Social History Tobacco [...] on filedocumented in this encounter Care Teams Buttermaker Helper Relationship Specialty Start Date End Date Yisel Marroquin MD PCP - General 11/13/18 03/05/19 documented as of this encounter
--- OUTSIDE RECORDS SUMMARY | 2024-08-01 18:39 | XMS_ITS | Encounter Summary ---
Author Organization [facility] [place] [address] Care Team Providers Care Zinc Chloride Operator Name Role Phone Aman Lawrence APRN Primary Care Provider +1 [phone] Encounter Details Date Type Department Care Team (Late st Contact Info) Description 12/03/2015 9:00 AM EDT - 12/03/2015 9:30 AM EDT Surgery [place] [id number] Ken Sanders MD [facility] DR [place] [address] EGD WITH BIOPSY (WRVU 2.39) Social History [...] better as expected. Tuesday-Tuesday Same Day Endo [phone]-8p Otherwise contact [phone] and ask to speak to the gasateria attendant collision center manager Follow-up care is a ramírez part of your treatment and safety. Be sure to make and go to all appointments, and call your doctor if you are having problems. Instructions have been reviewed and patient expresses understanding * Attachments The following attachments cannot be sent through Care Everywhere. * EGD (UPPER ENDOSCOPY) : POST-OP ([place]) documented in this encounter Medications at Time [...] vitamins (B COMPLEX-VITAMIN B12) tablet 09/23/2010 11/19/2016 wpelzfrerxvz-tczc-mnxxp als (COMPLETE MULTIVITAMIN) Tab tablet 1 Tablet(s), PO, Once daily 09/23/2010 11/19/2016 calcium citrate-vitamin D (CITRACAL+D) 315-200 mg-unit per tablet 2 Tablet(s), PO, Twice daily 09/23/2010 11/19/2016 ergocalciferol (VITAMIN D) 50,000 unit capsule [id number], PO, TWICE a week 09/23/2010 11/19/2016 documented [...] Report (12/03/2015 8:39 AM EDT) Final Diagnosis [id number] ? Location: 4T; EA11; A The signing [...] MD PATHOLOGY/CYTOLOGY O ALYSON Performing Organization Address [facility] [place] [place] [address] * Specimen to Pathology (surgical or derm) (12/03/2015 8:39 AM EDT) AP Specimen 12/03/2015 8:39 AM EDT 12/03/2015 8:39 AM EDT Narrative [facility] - 12/03/2015 8:39 AM EDT Specimen requisition ordered. ??Separate Pathology report to follow Ken Sanders MD PATHOLOGY/CYTOLOGY Kate SHIELDS Performing Organization Address [facility] [place] [place] [address] * Specimen to Pathology (surgical or derm) (12/03/2015 8:39 AM EDT) AP Specimen 12/03/2015 8:39 AM EDT 12/03/2015 8:39 AM EDT Narrative [facility] - 12/03/2015 8:39 AM EDT Specimen requisition ordered. ??Separate Pathology report to follow Ken Sanders MD PATHOLOGY/CYTOLOGY Kate SHIELDS Performing Organization Address [facility] [place] [place] [address] * UPPER GI ENDOSCOPY (12/03/2015 8:21 AM EDT) UPPER GI ENDOSCOPY [facility] Endoscopy Patient Name: Jeannie Trisha ? Procedure Date: 12/03/2015 8:21 AM ? Date of : 1960 ? Age: 55 ? Order #: [id number] ? Procedure: ? Upper GI endoscopy Indications: [...] Babin) documented in this encounter Care Teams Zinc Chloride Operator Relationship Specialty Start Date End Date Aman Lawrence APRN [address] [place] [address] PCP - General 06/16/10 06/27/18 documented as of this encounter
--- OUTSIDE RECORDS SUMMARY | 2024-08-01 18:39 | XMS_ITS | Encounter Summary ---
Author Organization [facility] Address [facility] [place] [address] Care Team Providers Care Buttermaker Name Role Phone Yisel Marroquin MD Primary Care Provider Unavail able Encounter Details Date Type Department Care Team (Late st Contact Info) Description 06/05/2014 Abstract [place] Conversion Results [address] [place] [address] Apd Conversion, Flowsheet Provider, Social History Tobacco [...] filedocumented in this encounter Care Teams Buttermaker Relationship Specialty Start Date End Date Yisel Marroquin MD PCP - General 11/13/18 03/05/19 documented as of this encounter
--- OUTSIDE RECORDS SUMMARY | 2024-08-01 18:39 | XMS_ITS | Encounter Summary ---
Author Organization [facility] [place] [address] Care Team Providers Care Wood Cabinet Finisher Name Role Phone Yisel Marroquin MD Primary Care Provider Unavail able Encounter Details Date Type Department Care Team (Late st Contact Info) Description 10/29/2014 Abstract [place] Conversion Results [address] [place] [address] Apd Conversion, Flowsheet Provider, Social History Tobacco [...] on filedocumented in this encounter Care Teams Wood Cabinet Finisher Relationship Specialty Start Date End Date Yisel Marroquin MD PCP - General 11/13/18 03/05/19 documented as of this encounter
--- OUTSIDE RECORDS SUMMARY | 2024-08-01 18:39 | XMS_ITS | Encounter Summary ---
Author [facility] [place] [address] Care Team Providers Care Printing Agent Name Role Phone Yisel Marroquin MD Primary Care Provider Unavail able Encounter Details Date Type Department Care Team (Late st Contact Info) Description 02/12/2014 Abstract [place] Conversion Results [address] [place] [address] Apd Conversion, Flowsheet Provider, Social History Tobacco [...] on filedocumented in this encounter Care Teams Printing Agent Relationship Specialty Start Date End Date Yisel Marroquin MD PCP - General 11/13/18 03/05/19 documented as of this encounter
--- OUTSIDE RECORDS SUMMARY | 2024-08-01 18:39 | XMS_ITS | Encounter Summary ---
Author Organization [facility] Address [facility] [place] [address] Care Team Providers Care Tnt Line Supervisor Name Role Phone Yisel Marroquin MD Primary Care Provider Unavail able Encounter Details Date Type Department Care Team (Late st Contact Info) Description 08/07/2014 Abstract [place] Conversion Results [address] [place] [address] Apd Conversion, Flowsheet Provider, Social History Tobacco [...] on filedocumented in this encounter Care Teams Tnt Line Supervisor Relationship Specialty Start Date End Date Yisel Marroquin MD PCP - General 11/13/18 03/05/19 documented as of this encounter
--- OUTSIDE RECORDS SUMMARY | 2024-08-01 18:39 | XMS_ITS | Encounter Summary ---
Author Organization [facility] Address [facility] [address] Care Team Providers Care Film Printer Name Role Phone Yisel Marroquin MD Primary Care Provider Unavail able Encounter Details Date Type Department Care Team (Late st Contact Info) Description 09/29/2015 Abstract [place] Conversion Results [address] [place] [address] Apd Conversion, Flowsheet Provider, Social History Tobacco [...] on filedocumented in this encounter Care Teams Film Printer Relationship Specialty Start Date End Date Yisel Marroquin MD PCP - General 11/13/18 03/05/19 documented as of this encounter
--- OUTSIDE RECORDS SUMMARY | 2024-08-01 18:39 | XMS_ITS | Encounter Summary ---
Author Organization [facility] Address [facility] [place] [address] Care Team Providers Care Solar Sales Representative Name Role Phone Yisel Marroquin MD Primary Care Provider Unavail able Encounter Details Date Type Department Care Team (Late st Contact Info) Description 04/16/2014 Abstract [place] Conversion Results [address] [place] [address] Apd Conversion, Flowsheet Provider, Social History Tobacco [...] filedocumented in this encounter Care Teams Solar Sales Representative Relationship Specialty Start Date End Date Yisel Marroquin MD PCP - General 11/13/18 03/05/19 documented as of this encounter
--- OUTSIDE RECORDS SUMMARY | 2024-08-01 18:39 | XMS_ITS | Encounter Summary ---
[place] [address] Care Team Providers Care Tunnel Kiln Repairer Name Role Phone Aman Lawrence APRN Primary Care Provider +1 [phone] Encounter Details Date Type Department Care Team (Late st Contact Info) Description 03/11/2014 2:50 PM EDT - 03/11/2014 11:59 PM EDT Hospital Encounter [place] [phone] Kidney stone Social History Tobacco Use Types [...] vitamins (B COMPLEX-VITAMIN B12) tablet 09/23/2010 11/19/2016 nihxyzyoycit-aqii-ezaob als (COMPLETE MULTIVITAMIN) Tab tablet 1 Tablet(s), PO, Once daily 09/23/2010 11/19/2016 calcium citrate-vitamin D (CITRACAL+D) 315-200 mg-unit per tablet 2 Tablet(s), PO, Twice daily 09/23/2010 11/19/2016 ergocalciferol (VITAMIN D) 50,000 unit capsule [id number], PO, TWICE a week 09/23/2010 11/19/2016 documented [...] ? pm) Patient Info ID #: ? [id number] ?: ??[birth year] (53 yrs) Name: ? YVONNE RICO ?Visit Date: 03/11/2014 03:57 pm Performed By Performed By: ?Elsa Guerra RDMS Associate: ? Wilfrido Stuart DO Attending: ? Christiano SLADE, Elba Carbajal Referred By: ? HUMBERTO BARAJAS MD Service(s) Provided ??URETRO - Retroperitoneal Complete - [id number] ? [id number] Indications ??kidney stone Right Kidney Size (cm) [...] 03/11/2014 04:10 pm) Patient Info ID #: [id number] : 60 (53 yrs) Name: YVONNE RICO Visit Date: 03/11/2014 03:57 pm Performed By Performed By: Elsa Guerra RDMS Associate: Wilfrido Stuart DO Attending: Elba Alvarado MD Referred By: HUMBERTO BARAJAS MD Service(s) Provided URETRO - Retroperitoneal Complete - [id number] Indications kidney stone Right Kidney Size (cm) [...] kidney documented in this encounter Care Teams Tunnel Kiln Repairer Relationship Specialty Start Date End Date Aman Lawrence APRN [address] [place] [address] PCP - General 06/16/10 06/27/18 documented as of this encounter
--- OUTSIDE RECORDS SUMMARY | 2024-08-01 18:39 | XMS_ITS | Encounter Summary ---
Author Organization [facility] Address [facility] [address] Care Team Providers Care Dispatcher Bus And Trolley Name Role Phone Yisel Marroquin MD Primary Care Provider Unavail able Encounter Details Date Type Department Care Team (Late st Contact Info) Description 01/25/2015 Interpretation Only Radiology [address] [facility] [place] [address] Unknown None Social History Tobacco Use Types [...] 2:54 PM EDT APD Historical Result Principal Ldr Nurse: ??ISAK ??ESCHBACH RIGHT FOOT: INDICATION: ??Injury. COMPARISON: ??Right ankle, January 25, 2015. FINDINGS: Three views of the right foot show no fracture, dislocation, joint effusion, or foreign body. Isak Benavides DO CHRISTINA/cornelio [id number] CC: Procedure Note Unknown - 01/22/2019 APD Historical Result Principal Ldr Nurse: ISAK BENAVIDES RIGHT FOOT: INDICATION: Injury. COMPARISON: Right ankle, January 25, 2015. FINDINGS: Three views of the right foot show no fracture, dislocation, jointeffusion, or foreign body. Isak Diazhbzari CHRISTINA/cornelio [id number] CC: Unknown IMG DX ORDERABLES documented in this encounter Visit Diagnoses Not on filedocumented in this encounter Care Teams Dispatcher Bus And Trolley Relationship Specialty Start Date End Date Yisel Marroquin MD PCP - General 11/13/18 03/05/19 documented as of this encounter
--- OUTSIDE RECORDS SUMMARY | 2024-08-01 18:39 | XMS_ITS | Encounter Summary ---
[place] [address] Care Team Providers Care Senior Peoplesoft Developer Name Role Phone Aman Lawrence APRN Primary Care Provider +1 [phone] Encounter Details Date Type Department Care Team (Late st Contact Info) Description 02/10/2014 [place] [address] Humberto Cerda MD Social History Tobacco Use Types Packs/Day [...] is a Non-reportable exam Humberto Cerda MD [facility] FILM LIBRARY ORD ERABLES documented in this encounter Visit Diagnoses Not on filedocumented in this encounter Care Teams Senior Peoplesoft Developer Relationship Specialty Start Date End Date Aman Lawrence APRN [address] [place] [address] PCP - General 06/16/10 06/27/18 documented as of this encounter
--- OUTSIDE RECORDS SUMMARY | 2024-08-01 18:39 | XMS_ITS | Encounter Summary ---
Author Organization [facility] Address [facility] [place] [address] Care Team Providers Care Structural Engineering Technician Name Role Phone Aman Lawrence APRN Primary Care Provider +1 [phone] Reason for Visit * Reason Comments Coronary Artery Disease Encounter Details Date Type Department Care Team (Late st Contact Info) Description 01/07/2014 7:40 AM EDT Follow-Up Cardiology at [address] [address] Freddy Mejias MD [facility] [place] [address] CAD (coronary artery disease) (Primary Dx); Smoking [...] Social history: , no children. Lives in [place]. 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 Smoking: Active smoker, 2ppd Alcohol: Prior [...] complex vitamins (B COMPLEX-VITAMIN B12) tablet ??? tdxfluytynlt-ukoe-yzhpwvxs (COMPLETE MULTIVITAMIN) Tab tablet 1 Tablet(s), PO, Once daily ??? calcium citrate-vitamin D (CITRACAL+D) 315-200 mg-unit per tablet 2 Tablet(s), PO, Twice daily ??? ergocalciferol (VITAMIN D) 50,000 unit capsule [id number], PO, TWICE a week Allergies Allergen Reactions [...] Coronary atherosclerosis of unspecified type of vessel, crow or graft Smoking Tobacco use disorder documented in this encounter Care Teams Structural Engineering Technician Relationship Specialty Start Date End Date Aman Lawrence APRN [address] [place] [address] PCP - General 06/16/10 06/27/18 documented as of this encounter
--- OUTSIDE RECORDS SUMMARY | 2024-08-01 18:39 | XMS_ITS | Encounter Summary ---
Author Organization [facility] Address [facility] [place] [address] Care Team Providers Care Safety Director Name Role Phone Yisel Marroquin MD Primary Care Provider Unavail able Encounter Details Date Type Department Care Team (Late st Contact Info) Description 01/28/2015 Abstract [place] Conversion Results [address] [place] [address] Apd Conversion, Flowsheet Provider, Social History Tobacco [...] on filedocumented in this encounter Care Teams Safety Director Relationship Specialty Start Date End Date Yisel Marroquin MD PCP - General 11/13/18 03/05/19 documented as of this encounter
--- OUTSIDE RECORDS SUMMARY | 2024-08-01 18:39 | XMS_ITS | Encounter Summary ---
[place] [address] Care Team Providers Care Log Manager Name Role Phone Yisel Marroquin MD Primary Care Provider Unavail able Encounter Details Date Type Department Care Team (Late st Contact Info) Description 05/14/2015 Orders Only Radiology and Cardiology Results [address] [place] [address] Apd Conversion, Results Provider, Social [...] encounter Results * (ABNORMAL) Lipid Panel (05/14/2015) Cholesterol/HDL Ratio 3.0(ExtL) 3.2 - 4.4 [facility] CONVERSION VLDL 34.8(Exte rnal Lab) [facility] CONVERSION LDL Cholesterol 46(Fiberglass Grinder al Lab) [facility] CONVERSION HDL Cholesterol 40(Fiberglass Grinder al Lab) 40 - 60 [facility] CONVERSION Triglyceride 174(ExtH) 30 - 150 [facility] P NATAL[place] DAY CONVERSION Cholesterol, Total 121(Exter nal Lab) 50 - 200 [facility] CONVERSION 05/14/2015 Results Provider Apd Conversion MD JASON ESTRELLA ORDERABLES [facility] CONVERSION documented in this encounter Visit Diagnoses Not on filedocumented in this encounter Care Teams Log Manager Relationship Specialty Start Date End Date Yisel Marroquin MD PCP - General 11/13/18 03/05/19 documented as of this encounter
--- OUTSIDE RECORDS SUMMARY | 2024-08-01 18:39 | XMS_ITS | Encounter Summary ---
[place] [address] Care Team Providers Care Machine Cage Maker Name Role Phone Aman Lawrence APRN Primary Care Provider +1 -[phone] Encounter Details Date Type Department Care Team (Late st Contact Info) Description 02/10/2014 [place] [address] Humberto Cerda MD Social History Tobacco Use [...] is a Non-reportable exam Humberto Cerda MD [facility] FILM LIBRARY ORD ERABLES documented in this encounter Visit Diagnoses Not on filedocumented in this encounter Care Teams Machine Cage Maker Relationship Specialty Start Date End Date Aman Lawrence APRN [address] [place] [address] PCP - General 06/16/10 06/27/18 documented as of this encounter
--- OUTSIDE RECORDS SUMMARY | 2024-08-01 18:39 | XMS_ITS | Encounter Summary ---
[place] [address] Care Team Providers Care Electrician Refinery Name Role Phone Yisel Marroquin MD Primary Care Provider Unavail able Encounter Details Date Type Department Care Team (Late st Contact Info) Description 05/14/2015 Orders Only Radiology and Cardiology Results [address] [place] [address] Apd Conversion, Results Provider, [...] encounter Results * (ABNORMAL) Hemoglobin A1c (05/14/2015) Estimated Average Glucose 125.5(ExtH ) 82.5 - 116.9 [facility] CONVERSION Hemoglobin A1c 6.0(Construction And Maintenance Inspector al Lab) 4.5 - 6.2 [facility] CONVERSION 05/14/2015 Results Provider Apd Conversion MD JASON ESTRELLA ORDERABLES [facility] CONVERSION documented in this encounter Visit Diagnoses Not on filedocumented in this encounter Care Teams Electrician Refinery Relationship Specialty Start Date End Date Yisel Marroquin MD PCP - General 11/13/18 03/05/19 documented as of this encounter
--- OUTSIDE RECORDS SUMMARY | 2024-08-01 18:39 | XMS_ITS | Encounter Summary ---
Author Organization [facility] [place] [address] Care Team Providers Care Floor Refinisher Name Role Phone Yisel Marroquin MD Primary Care Provider Unavail able Encounter Details Date Type Department Care Team (Late st Contact Info) Description 12/13/2014 Abstract [place] Conversion Results [address] [place] [address] Apd Conversion, Flowsheet Provider, Social History Tobacco [...] on filedocumented in this encounter Care Teams Floor Refinisher Relationship Specialty Start Date End Date Yisel Marroquin MD PCP - General 11/13/18 03/05/19 documented as of this encounter
--- OUTSIDE RECORDS SUMMARY | 2024-08-01 18:40 | XMS_ITS | Encounter Summary ---
Author Organization [facility] Address [facility] [place] [address] Care Team Providers Care Asphalt Paving Supervisor Name Role Phone Aman Lawrence APRN Primary Care Provider +1 -[phone] Reason for Visit * Reason Comments Coronary Artery Disease Encounter Details Date Type Department Care Team (Late st Contact Info) Description 05/10/2013 8:10 AM EDT Office Visit Cardiology at [address] [address] [facility] [place] [address] CAD (coronary artery disease) (Primary Dx) Discharge [...] GI ENDOSCOPY performed by DEE WRIGHT at [facility] ENDOSCOPY ??? Abdomen surgery ??? Hysterectomy No [...] Social history: , no children. Lives in [place]. 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 Smoking: Active smoker, 2ppd Alcohol: Prior [...] ??? VITAMIN D2 50,000 UNIT CAPSULE Oral [id number], PO, TWICE a week ??? QUETIAPINE ER [...] (Bezet) 364 ms MUSE SYSTEM Calculated P [place] 34 degrees MUSE SYSTEM Calculated R [place] 53 degrees MUSE SYSTEM Calculated T [place] 50 degrees MUSE SYSTEM INTERPRETATION Sinus bradycardia [...] Coronary atherosclerosis of unspecified type of vessel, makah or graft documented in this encounter Care Teams Asphalt Paving Supervisor Relationship Specialty Start Date End Date Aman Lawrence APRN [address] [place] [address] PCP - General 06/16/10 06/27/18 documented as of this encounter
--- OUTSIDE RECORDS SUMMARY | 2024-08-01 18:40 | XMS_ITS | Encounter Summary ---
[place] [address] Care Team Providers Care Engine Boss Name Role Phone Aman Lawrence APRN Primary Care Provider +1 -[phone] Reason for Visit * Reason Onset Date Comments Other 06/01/2013 request alternat kayden medication Encounter Details Date Type Department Care Team (Late st Contact Info) Description 06/01/2013 Telephone [place] [address] Sidra Diaz RN Other (request alternative medication) [...] of leakage. Will discuss with Sidra Vallejo EPIC INTERFACE ANALYST documented in this encounter Plan of Treatment Not on file documented as of this encounter Visit Diagnoses Not on filedocumented in this encounter Care Teams Engine Boss Relationship Specialty Start Date End Date Aman Lawrence APRN [address] [place] [address] PCP - General 06/16/10 06/27/18 documented as of this encounter
--- OUTSIDE RECORDS SUMMARY | 2024-08-01 18:40 | XMS_ITS | Encounter Summary ---
[place] [address] Care Team Providers Care Faceter Name Role Phone Aman Lawrence APRN Primary Care Provider +1 -[phone] Reason for Visit * Reason Onset Date Comments Other 06/04/2013 ?PPI with Plavix Encounter Details Date Type Department Care Team (Late st Contact Info) Description 06/04/2013 Telephone Cardiology at [address] [address] Irasema Mohan RN Other (?PPI with Plavix) [...] on filedocumented in this encounter Care Teams Faceter Relationship Specialty Start Date [place] [address] PCP - General 06/16/10 06/27/18 documented as of this encounter
--- OUTSIDE RECORDS SUMMARY | 2024-08-01 18:40 | XMS_ITS | Encounter Summary ---
Author Organization [facility] [place] [address] Care Team Providers Care Fishing Vessel Deckhand Name Role Phone Adriana Perla APRN Primary Care Provider [phone] Reason for Referral * Rehabilitation (Routine) - Closed Specialty Diagnoses / Procedures Referred By Vanita dimas Referred To Contact Cardiology Diagnoses Unstable angina Freddy Mejias MD [facility] [place] [address] [facility] [place] [address] Referral ID Status Reason Start Date Expiration Date V isits Requested Visits Authorized [id number] Closed Evaluate and Treat 04/17/2013 10/14/2013 1 1 Reason for Visit * Reason Comments Chest Pain Encounter Details Date Type Department Care Team (Latest Contact Info) Description 04/14/2013 11:39 PM EDT - 04/17/2013 3:43 PM EDT Hospital Encounter Intermediate [place] [phone] Tavon Reed MD [facility] [place] [address] Freddy Mejias MD [facility] [place] [address] Unstable angina; Chronic pain Discharge Disposition: Home [...] 2PM Dr. Stephanie Osman 5 / [place] [id number] May 10, 8:10AM Ambrosio Maloney, Cardiology [facility] Your Primary Care Provider: ADRIANA PERLA, CUSTOMER SERVICE LEADER 5 KORI FLORES / [place] [id number] For questions regarding this document or issues relating to this hospitalization on the Medical Service, please contact your inpatient physician through the [facility] Box Lining Machine Operator . Issues afterhours and on weekends will be handled by the Hospitalist staff on-call. * Attachments The following attachments cannot be sent through Care Everywhere. * PERCUTANEOUS CORONARY INTERVENTION: WHAT TO EXPECT AT HOME ([place]) documented in this encounter Medications at Time [...] vitamins (B COMPLEX-VITAMIN B12) tablet 09/23/2010 11/19/2016 knypuacggnga-gfbc-dxi erals (COMPLETE MULTIVITAMIN) Tab tablet 1 Tablet(s), PO, Once daily 09/23/2010 11/19/2016 calcium citrate-vitamin D (CITRACAL+D) 315-200 mg-unit per tablet 2 Tablet(s), PO, Twice daily 09/23/2010 11/19/2016 ergocalciferol (VITAMIN D) 50,000 unit capsule [id number], PO, TWICE a week 09/23/2010 11/19/2016 documented as of this encounter Progress Notes * Margarita Sharma RN - 04/17/2013 3:37 PM EDT 1540- Discharge orders available. Pt and care transition coordinator given discharge AVS, discharge summary, percutaneous intervention care instructions, medication information, diabetes tool kit and nutrition information via verbal and written communication. Pt and care transition coordinator expressed a correct verbal understanding of discharge instructions, percutaneous intervention care instructions and medication information. Pt disconnected from telemetry and IVs removed. [facility] via wheelchair and discharged for home [...] bypass vitamins and minerals which are necessary senior care after gastric bypass. Recommend a daily multivitamin [...] one week, unless consulted sooner. * Andres Godo PT - 04/17/2013 11:53 AM EDT Physical Therapy Note Pt worked with cardiac rehab and cardiac rehab reports patient is independent and has no PT needs at this time. RN agrees. D/c inpatient PT at this time. Andres Good, PT Beeper# [id number] * Freddy Mejias MD - 04/17/2013 5:23 [...] Somers DO (PGY-1) Internal Medicine Resident Pager [phone] STAFF ADDENDUM Patient interviewed and examined. Medical [...] tomorrow as appropriate. Andres Good PT Beeper# [id number] * Jeremy Radford OT - 04/16/2013 10:24 AM EDT Chart reviewed and orders received. 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 RN reports patient mobilizingwell and able to perform own ADLS. We will monitor and f/u as needed for evaluation. Jeremy Radford OTR/L [id number] * Freddy Mejias MD - 04/16/2013 6:10 [...] Somers DO (PGY-1) Internal Medicine Resident Pager [phone] STAFF ADDENDUM Patient interviewed and examined. Medical [...] tablets and recommended she follow-up with a Commercial Food Instructor. This appointment was scheduled for 04/19 (5 [...] with 325mg of Aspirin in route to [facility]. While in the ED, she had another [...] 05/12/00 Open cholecystectomy ~1991 CHIP/BSO 1985 in [place] for ovarian cyst Complete dental extractions 1998 [...] Social history: , no children. Lives in [place]. 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 Smoking: Active smoker, 2ppd Alcohol: Prior alcoholic, [...] story is co ncerning for a Type-I ND. I suspect she will need a Cardiac [...] Rae, elder sister) Kasia Anthony, PGY-2 Pager [phone] STAFF ADDENDUM Patient interviewed and examined. Medical [...] 04/18/2013 1:04 PM EDTAssociated Order(s): SCAN DOC: TRANSPORT COMPANY MANAGER * Provider, Scanning - 04/16/2013 4:59 PM EDTAssociated Order(s): CARDIAC CATHETERIZATION * Cydney Mccurdy - 04/16/2013 11:59 AM EDTAssociated Order(s): CARDIAC CATHETERIZATION documented in this encounter ED Notes * Donna Saunders RN - 04/15/2013 12:19 AM EDT Awaiting transfer to [facility]. * Donna Saunders RN - 04/15/2013 12:17 [...] has arragned for her to see a ticket printer and tagger this coming . She comes in tonight [...] Score for ED patients with possible ACS, ([facility] 2009February 03:182(10):3116-78): 1) Age >= 65 years? +1 2) >= 3 Risk Factors for CAD? +1 3) Known CAD (stenosis >= 50%)? +1 4) ASA Use in Past 7d? +1 5) Severe angina (>= 2 episodes w/in 24 hrs)? +1 6) ST changes >= 0.5mm? +1 7) Positive Cardiac Marker? +1 This patient's DUARTE Risk is: 3 with a 14-day mortality of 19%. Score: 14-day triple point (mortality, ND, revascularization) 0 1.8% 1 4.0% 2 8.3% [...] to their service. Tavon Reed MD 04/14/13 5090 Recent Results (from the past 24 hour(s)) [...] URINE DIPSTICK Component Value Range POC Sp [place] 1.010 1.002 - 1.030 POC pH, UA [...] Internal Controls Acceptable Tavon Reed MD 04/14/13 2328 Tavon Reed MD 04/14/13 2328 * Vandana Marte RN - 04/14/2013 9:32 [...] tablets and recommended she follow-up with a Commercial Food Instructor. This appointment was scheduled for 04/19 (5 [...] with 325mg of Aspirin in route to [facility]. While in the ED, she had another [...] complex vitamins (B COMPLEX-VITAMIN B12) tablet Oral jiaumufxoxbd-quya-frtbwmwq (COMPLETE MULTIVITAMIN) Tab tablet 1 Tablet(s), PO, Once daily, Oral calcium citrate-vitamin D (CITRACAL+D) 315-200 mg-unit per tablet 2 Tablet(s), PO, Twice daily, Oral ergocalciferol (VITAMIN D) 50,000 unit capsule [id number], PO, TWICE a week, Oral varenicline (CHANTIX) [...] Tue 2, 2PM Dr. Stephanie Osman 5 [place] [address] May 10, 8:10AM Ambrosio Maloney, Cardiology [facility] 4A Your Primary Care Provider: [place]ILLALOBOS DR / [place] [id number] For questions regarding this document or issues relating to this hospitalization on the Medical Service, please contact your inpatient physician through the [facility] Box Lining Machine Operator . Issues afterhours and on weekends will be handled by the Hospitalist staff on-call. General Instructions None Future Appointments and Orders Future Appointments: Provider: Department: Dept Phone: Center: 05/03/2013 1:30 PM Crp Cardiac Rehab Prog Non-Invasive Cardiology Lab [phone] None 05/10/2013 8:10 AM Freddy Mejias MD Cardiology [phone] [facility] Joint Appt Nurse One Cardiology Intake, FABIANA LYONS 4A [phone] [facility] Future Orders Please Complete By Expires Referral to Cardiac Rehab [[id number] Custom] Process Instructions: If no progress note charted, please enter Clinical details in comments. Scheduling Instructions: Comments: Cardiac rehab at [facility] Questions: Responses: Reason for referral Angina, PCI Provider Contact Information: [place] [address] Discharge References/Attachments: Discharge References/Attachments PERCUTANEOUS CORONARY INTERVENTION: WHAT TO EXPECT AT HOME ([place]) Signed: Jefe Sharma, PGY-3 DATE: 04/19/13 * Consult Note - Kenna Solorio RN - 04/17/2013 11:00 AM EDT Cardiac [...] parameters for home exercise. Phase II Referral: [facility], intake 05/03 at 1:30 Activity Summary: By [...] Breath sounds are distant, but clear. On classroom monitor she is in NSR no ectopy. Friend [...] Procedure Name Priority Date/Time Associated Diagnosis Comments TRANSPORT COMPANY MANAGER SCAN 04/18/2013 1:04 PM EDT CARDIAC CATHETERIZATION Routine 04/18/20 13 10:15 AM EDT POCT GLUCOSE Routine 04/17/2013 11:50 AM EDT HEMOGLOBIN Routine 04/17/2013 11:13 AM EDT POCT GLUCOSE Routine 04/17/2013 7:37 AM EDT EKG 12-LEAD STAT 04/17/2013 7:21 AM EDT Unstable angina DIFFERENTIAL, AUTOMATED Routine 04/17/20 13 3:51 AM EDT CBC (WITH DIFF) Routine 04/17/2013 3:51 AM EDT BASIC METABOLIC PANEL Routine 04/17/2013 3:51 AM EDT POCT GLUCOSE Routine 04/16/2013 8:26 PM EDT POCT GLUCOSE Routine 04/16/2013 4:35 PM EDT EKG 12-LEAD Routine 04/16/2013 1:16 PM EDT EKG 12-LEAD Routine 04/16/2013 1:16 PM EDT CARDIAC ENZYMES ([facility]) STAT 04/16/2013 12:00 PM EDT ECHOCARDIOGRAM TRANSTHORACIC Routine 04/16/2013 10:11 AM EDT Unstable angina POCT GLUCOSE Routine 04/16/2013 7:42 AM EDT DIFFERENTIAL, AUTOMATED Routine 04/16/20 13 4:07 AM EDT APTT Routine 04/16/2013 4:07 AM EDT PROTHROMBIN TIME Routine 04/16/2013 4:07 AM EDT CBC (WITH DIFF) Routine 04/16/2013 4:07 AM EDT BASIC METABOLIC PANEL Routine 04/16/2013 4:07 AM EDT APTT STAT 04/15/2013 10:00 PM EDT POCT GLUCOSE Routine 04/15/2013 8:50 PM EDT APTT STAT 04/15/2013 5:00 PM EDT POCT GLUCOSE Routine 04/15/2013 3:54 PM EDT EKG 12-LEAD Routine 04/15/2013 12:49 PM EDT POCT GLUCOSE Routine 04/15/2013 11:27 AM EDT CARDIAC ENZYMES ([facility]) Routine 04/15/2013 10:28 AM EDT APTT STAT 04/15/2013 10:28 AM EDT XR CHEST PA AND LATERAL Routine 04/15/20 13 8:31 AM EDT POCT GLUCOSE Routine 04/15/2013 7:59 AM EDT EKG 12-LEAD Routine 04/15/2013 7:17 AM EDT Unstable angina XR CHEST PA AND LATERAL STAT 04/15/20 13 5:07 AM EDT CARDIAC ENZYMES ([facility]) Routine 04/15/2013 4:54 AM EDT TSH Routine [...] EDT BUN STAT 04/14/2013 9:10 PM EDT GLUCOSE STAT 04/14/2013 9:10 PM EDT ELECTROLYTES PANEL STAT 04/14/2013 9: 10 PM EDT EKG 12-LEAD STAT 04/14/2013 8:57 PM EDT documented in this encounter Results * SCAN DOC: TRANSPORT COMPANY MANAGER (04/18/2013 1:04 PM EDT) Anatomical Region Laterality [...] * POCT Glucose (04/17/2013 11:50 AM EDT) Glucose, POC 138 60 - 199 mg/dL [facility] Comment: Supplemental ranges: <110 mg/dL before meals <200 mg/dL all other times of the day Blood specimen (specimen) 04/17/2013 11:50 AM EDT 04/17/2013 11:50 AM EDT Freddy Mejias MD POINT OF CARE TEST O RDERABLES [facility] * (ABNORMAL) Hemoglobin (04/17/2013 11:13 AM EDT) Hemoglobin 10.2(L) 11.2 - 15.7 gm/dL [facility] Blood specimen (specimen) 04/17/2013 11:13 AM EDT 04/17/2013 11:27 AM EDT Narrative Resulting Agency Comment Spec In Lab Freddy Mejias MD HEMATOLOGY ORDERABLE S Performing Organization Address [facility] Co de Phone Number [facility] * POCT Glucose (04/17/2013 7:37 AM EDT) Pathologist [facility] Glucose, POC 95 60 - 199 mg/dL [facility] Comment: Supplemental ranges: <110 mg/dL before meals <200 mg/dL all other times of the day Blood specimen (specimen) 04/17/2013 7:37 AM EDT 04/17/2013 7:37 AM EDT Freddy Mejias MD POINT OF CARE TEST O RDERABLES Performing Organization Address [facility] de Phone Number [facility] * EKG 12 Lead (04/17/2013 7:21 AM EDT) Ventricular rate 49 BPM MUSE SYSTEM Atrial Rate 49 BPM MUSE SYSTEM P-R Interval 150 ms MUSE SYSTEM QRS Duration 88 ms MUSE SYSTEM Q-T Interval 460 ms MUSE SYSTEM QTC Calculated (Bezet) 415 ms MUSE SYSTEM Calculated P Mendon 41 degrees MUSE SYSTEM Calculated R Mendon 63 degrees MUSE SYSTEM Calculated T Mendon 139 degrees MUSE SYSTEM INTERPRETATION Marked sinus [...] Reed MD ECG ORDERABLES Performing Organization Address [facility] Co de Phone Number MUSE SYSTEM * (ABNORMAL) Differential, Automated (04/17/2013 3:51 AM EDT) Pathologist [facility] Neutrophil % 75.0(H) 34.0 - 71.0 % [facility] Neutrophil Absolute 8.09(H) 1.50 - 6.30 x10(3)/mc L [facility] Lymph % 16.0(L) 19.0 - 53.0 % [facility]ILL[facility] Lymphocytes Abs 1.7 1.0 - 3.6 x10(3)/mc L [facility]ILLENNI[facility] Monocyte % 7.5 4.0 - 13.0 % [facility]ILLENNI[facility] Monocyte Abs 0.8 0.2 - 1.0 x10(3)/mc L [facility] Eos % 0.9 0.0 - 7.0 % [facility] Eosinophils Abs 0.1 0.0 - 0.5 x10(3)/mc L [facility] Basophil % 0.3 0.0 - 2.0 % [facility] MILLENNI[facility] Baso Absolute 0.0 0.0 - 0.2 x10(3)/mc L CERNER [...] performed. Immature Gran Absolute 0.03 0.00 - 0.05 x10(3)/mc L [facility] Blood specimen (specimen) 04/17/2013 3:51 AM EDT 04/17/2013 5:10 AM EDT Tavon Reed MD HEMATOLOGY ORDERABLE S [facility] * (ABNORMAL) Basic Metabolic Panel (non-fasting) (04/17/2013 3:51 AM EDT) Glucose 102 60 - 199 mg/dL [facility] Comment:Diabetes: >=200 mg/d L plus symptoms Blood Urea Nitrogen 9 8 - 18 mg/dL [facility] Creatinine 0.61(L) 0.70 - 1.20 mg/dL [facility] Comment: Please note that the pediatric reference intervals supplied above were not validated at [facility]. Results from pediatric patients should be interpreted [...] 105 98 - 107 mmol/L [facility] Carbon Dioxide 26 22 - 31 mmol/L [facility]ILLEN[facility] Anion Gap 8 5 - 15 mmol/L [facility]ILL[facility] Calcium 9.0 8.5 - 10.5 mg/dL [facility] Est Glomerular Filtration Rate >60 >=60 [facility] Comment: This estimated [...] CBC (with Diff) (04/17/2013 3:51 AM EDT) White Blood Cell 10.8(H) 4.0 - 10.0 x10(3)/mc L [facility] Red Blood Cell 3.46(L) 3.93 - 5.22 x10(6)/mc L [facility] Hemoglobin 9.8(L) 11.2 - 15.7 gm/dL [facility] Hematocrit 31.5(L) 34.0 - 45.0 % [facility] MILLENNI[facility] Mean Cell Volume 91.0 79.0 - 94.0 fL [facility]ILLEN[facility] Mean Cell Hemoglobin 28.3 26.6 - 32.2 pg [facility] MILLENNI[facility] Mean Cell Hemoglobin Concentration 31.1(L) 32.0 - 36.5 gm/dL [facility] Platelet 226 145 - 370 x10(3)/mc L [facility] RDW Standard Deviation 52.0(H) 35.0 - 46.0 fL [facility] MILLENNI[facility] RDW coefficient of variation 15.6(H) 10.9 - 14.4 % [facility] MILLENNIUM Mean Platelet Volume 10.6 9.0 - 12.0 fL [facility] Blood specimen (specimen) 04/17/2013 3:51 AM EDT 04/17/2013 5:10 AM EDT Narrative Resulting Agency Comment Spec In Lab Tavon Reed MD HEMATOLOGY ORDERABLE S Performing Organization Address [facility]/ZIP Co de Phone Number [facility] * POCT Glucose (04/16/2013 8:26 PM EDT) Glucose, POC 130 60 - 199 mg/dL [facility] Comment: Supplemental ranges: <110 mg/dL before meals <200 mg/dL all other times of the day Blood specimen (specimen) 04/16/2013 8:26 PM EDT 04/16/2013 8:26 PM EDT Freddy Mejias MD POINT OF CARE TEST O RDERABLES [facility] * POCT Glucose (04/16/2013 4:35 PM EDT) Glucose, POC 101 60 - 199 mg/dL [facility] Comment: Supplemental ranges: <110 mg/dL before meals <200 mg/dL all other times of the day Blood specimen (specimen) 04/16/2013 4:35 PM EDT 04/16/2013 4:35 PM EDT Freddy Mejias MD POINT OF CARE TEST O RDERABLES Performing Organization Address [facility] Co de Phone Number [facility] * EKG 12 Lead (04/16/2013 1:16 PM EDT) Pathologist [facility] Ventricular rate 55 BPM MUSE SYSTEM Atrial Rate 55 BPM MUSE SYSTEM QRS Duration 76 ms MUSE SYSTEM Q-T Interval 458 ms MUSE SYSTEM QTC Calculated (Bezet) 438 ms MUSE SYSTEM Calculated P Mendon 91 degrees MUSE SYSTEM Calculated R Mendon 61 degrees MUSE SYSTEM Calculated T Mendon 96 degrees MUSE SYSTEM INTERPRETATION Sinus bradycardia ST & T wave abnormality, consider anterolateral ischemia Abnormal ECG When compared with ECG of 15-APR-2013 12:49, T wave inversion less evident in Lateral leads Confirmed by MD WILBER, SERGO ([id number]) on 04/17/2013 9:58:29 PM MUSE SYSTEM 04/16/2013 1:16 PM EDT 04/17/2013 9:58 PM EDT Sergo Goins MD ECG ORDERABLES Performing Organization Address [facility] Co de Phone Number MUSE SYSTEM * Cardiac Enzymes (04/16/2013 12:00 PM EDT) [facility] Troponin-T <0.03 <=0.03 ng/mL [facility] Comment: 0.03 ng/mL: Represents the 99th percentile upper reference limit for normals. >0.03 ng/mL: Elevated cardiac troponin T level indicative of myocardial damage. Diagnosis of acute, evolving or recent ND requires a typical rise and gradual fall [...] consensus document of the Joint Society of Cardiology/[place] College of Cardiology Committee for the redefinition of myocardial infarction. Journal of the [place] College [employer]iology 2000; 36: 959-969] Creatine Kinase 39 0 - 160 unit/L [facility] Blood specimen (specimen) 04/16/2013 12:00 PM EDT 04/16/2013 12:05 PM EDT Narrative Resulting Agency Comment Spec In Lab Freddy Mejias MD CHEMISTRY ORDERABLES [facility] * Echocardiogram Transthoracic(Leb) (04/16/2013 10:11 AM EDT) EF 60 [employer] SYSTEM Anatomical Region Laterality Modality Other 04/16/2013 Narrative 04/16/2013 10:37 AM EDT Procedure: ? Transthoracic Echocardiogram Patient: ? APOLINAR RUSSELL L ?(Age): 1960(52) Med Rec#: ?[id number] ? Sex: ?F ? Site Loc: ?DH ? Ht / Wt: ??163(cm)/115(kg) Pt. Loc: ? Adult Floor ?BSA: ?2.28 Study Date: ?04/16/2013 ? Pt. Type: Inpatient Tape: ? Referring: Tavon Reed Farmworker: Dereck Diaz Diagnosis:CPT Code(s): ??Echo Full (35633), ??Spectral Doppler (74083), Color Doppler (56595), ??Optison (59073FY), ??Spectral Doppler (69483), Color Doppler (35422), ??Definity (37425DA), ??Echo Full (65786), Indication(s): ??Angina Rhythm: HR ?BP ?134/69 ?? [...] ? Mid-Inferior ?Normal ? Mid-Inferoseptal ?Normal ? Bennett-Septal ? Normal ? Bennett-Anterior ? Normal ? Bennett-Lateral ?Normal ? Bennett-Inferior ? Normal ? Bennett-Tip ?Normal ? Chambers ?Value ?Units (Range) ? [...] 04/16/2013 10:36:51 Images reviewed and interpretation verified [facility] Cardiac Ultrasound Laboratory Procedure Note Chalino Gomez MD - 04/16/2013 Procedure: Transthoracic Echocardiogram Patient: APOLINAR Lawson DOB(Age): 1960(52) Med Rec#: [id number] Sex: F Site Loc: [facility] Ht / Wt: 163(cm)/115(kg) Pt. Loc: Adult Floor BSA: 2.28 Study Date: 04/16/2013 Pt. Type: Inpatient Tape: Referring: Tavon Reed Farmworker: Dereck Diaz Diagnosis:CPT Code(s): Echo Full (60657), Spectral Doppler (08928), Color Doppler (02624), Optison (45345KY), Spectral Doppler (74424), Color Doppler (88755), Definity (94163GM), Echo Full (88410), Indication(s): Angina Rhythm: HR BP 134/69 SUMMARY: [...] Normal Mid-Posterolateral Normal Mid-Inferior Normal Mid-Inferoseptal Normal Bennett-Septal Normal Bennett-Anterior Normal Bennett-Lateral Normal Bennett-Inferior Normal Bennett-Tip Normal Chambers Value Units (Range) IVSd 2D [...] 04/16/2013 10:36:51 Images reviewed and interpretation verified [facility] Cardiac Ultrasound Laboratory Tavon Reed MD ECHO ORDERABLES * POCT Glucose (04/16/2013 7:42 AM EDT) Pathologist [facility] Glucose, POC 103 60 - 199 mg/dL [facility]ILL[facility] Comment: Supplemental ranges: <110 mg/dL before meals <200 mg/dL all other times of the day Blood specimen (specimen) 04/16/2013 7:42 AM EDT 04/16/2013 7:42 AM EDT Freddy Mejias MD POINT OF CARE TEST O RDERABLES [facility] * (ABNORMAL) Differential, Automated (04/16/2013 4:07 AM EDT) Pathologist [facility] Neutrophil % 51.8 34.0 - 71.0 % [facility]ILL[facility] Neutrophil Absolute 4.65 1.50 - 6.30 x10(3)/mc L [facility] MILLENNI[facility] Lymph % 41.0 19.0 - 53.0 % [facility] MILLENNI[facility] Lymphocytes Abs 3.7(H) 1.0 - 3.6 x10(3)/mc L [facility]ILLENNI[facility] Monocyte % 5.6 4.0 - 13.0 % [facility] MILLENNIUM Monocyte Abs 0.5 0.2 - 1.0 x10(3)/mc L [facility] MILLENNIUM Eos % 1.1 0.0 - 7.0 % [facility] MILLENNIUM Eosinophils Abs 0.1 0.0 - 0.5 x10(3)/mc L [facility] MILLENNIUM Basophil % 0.4 0.0 - 2.0 % [facility] MILLENNIUM Baso Absolute 0.0 0.0 - 0.2 x10(3)/mc L CERNER [...] performed. Immature Gran Absolute 0.01 0.00 - 0.05 x10(3)/mc L [facility]ILLEN[facility] Blood specimen (specimen) 04/16/2013 4:07 AM EDT 04/16/2013 4:17 AM EDT Tavon Reed MD HEMATOLOGY ORDERABLE S [facility] * (ABNORMAL) Basic Metabolic Panel (non-fasting) (04/16/2013 4:07 AM EDT) [facility] Glucose 97 60 - 199 mg/dL [facility] Comment:Diabetes: >=200 mg/d L plus symptoms Blood Urea Nitrogen 12 8 - 18 mg/dL [facility] Creatinine 0.64(L) 0.70 - 1.20 mg/dL [facility] Comment: Please note that the pediatric reference intervals supplied above were not validated at [facility]. Results from pediatric patients should be interpreted [...] 107 98 - 107 mmol/L [facility] Carbon Dioxide Disregard 22 - 31 mmol/L [facility] Comment: The Bicarb value for this sample is suspected to be falsely increased due to an instrumentation error. Corrected from 32 mMol/L [HI] on 04/17/13 15:30:30 EDT by Juan Lisa. Anion Gap 2(L) 5 - 15 mmol/L [facility] Calcium 8.7 8.5 - 10.5 mg/dL [facility] Est Glomerular Filtration Rate >60 >=60 [facility] Comment: This estimated [...] CBC (with Diff) (04/16/2013 4:07 AM EDT) White Blood Cell 9.0 4.0 - 10.0 x10(3)/mc L [facility]ILL[facility] Red Blood Cell 4.05 3.93 - 5.22 x10(6)/mc L [facility]ILLEN[facility] Hemoglobin 11.3 11.2 - 15.7 gm/dL [facility] Hematocrit 37.2 34.0 - 45.0 % [facility] MILLENNI[facility] Mean Cell Volume 91.9 79.0 - 94.0 fL [facility] MILLENNI[facility] Mean Cell Hemoglobin 27.9 26.6 - 32.2 pg [facility] MILLENNIUM Mean Cell Hemoglobin Concentration 30.4(L) 32.0 - 36.5 gm/dL [facility] Platelet 218 145 - 370 x10(3)/mc L [facility] MILLENNI[facility] RDW Standard Deviation 51.7(H) 35.0 - 46.0 fL [facility]ILLENNI[facility] RDW coefficient of variation 15.3(H) 10.9 - 14.4 % [facility] MILLENNI[facility] Mean Platelet Volume 9.7 9.0 - 12.0 fL [facility] Blood specimen (specimen) 04/16/2013 4:07 AM EDT 04/16/2013 4:17 AM EDT Narrative Resulting Agency Comment Spec In Lab Tavon Reed MD HEMATOLOGY ORDERABLE S Performing Organization Address City/[facility]/ZIP Co de Phone Number [facility] * (ABNORMAL) APTT (04/16/2013 4:07 AM EDT) Partial Thromboplastin Time 116(H) 25 - 35 sec [facility] Comment: Recommended therapeutic PTT range for full dose unfractionated heparin is 80-114 seconds. Blood specimen (specimen) 04/16/2013 4:07 AM EDT 04/16/2013 4:18 AM EDT Narrative Resulting Agency Comment Spec In Lab Freddy Mejias MD HEMATOLOGY ORDERABLE S [facility] * Prothrombin Time (04/16/2013 4:07 AM EDT) Prothrombin Time 13.2 12.0 - 15.0 sec [facility]ILL[facility] Comment: [facility] Transfusion Committee Guidelines: INR less than 2.0, PTT less than OR equal to 43.5 seconds, or Fibrinogen greater than or equal to 100 mg/dl indicate adequate procoagulant activity for hemostasis in patients without underlying bleeding disorders. International Normalization Ratio 1.0 0.9 - 1.1 [facility]ILLENNI[facility] Blood specimen (specimen) 04/16/2013 4:07 AM EDT 04/16/2013 4:18 AM EDT Narrative Resulting Agency Comment Spec In Lab Freddy Mejias MD HEMATOLOGY ORDERABLE S Performing Organization Address [facility] Co de Phone Number [facility] * (ABNORMAL) APTT (04/15/2013 10:00 PM EDT) Partial Thromboplastin Time 111(H) 25 - 35 sec [facility] Comment: Recommended therapeutic PTT range for full dose unfractionated heparin is 80-114 seconds. Blood specimen (specimen) 04/15/2013 10:00 PM EDT 04/15/2013 11:27 PM EDT Narrative Resulting Agency Comment Spec In Lab Freddy Mejias MD HEMATOLOGY ORDERABLE S Performing Organization Address [facility] de Phone Number [facility] * POCT Glucose (04/15/2013 8:50 PM EDT) Glucose, POC 127 60 - 199 mg/dL [facility] Comment: Supplemental ranges: <110 mg/dL before meals <200 mg/dL all other times of the day Blood specimen (specimen) 04/15/2013 8:50 PM EDT 04/15/2013 8:50 PM EDT Freddy Mejias MD POINT OF CARE TEST O RDERABLES Performing Organization Address [facility] Co de Phone Number [facility] * (ABNORMAL) APTT (04/15/2013 5:00 PM EDT) Partial Thromboplastin Time 108(H) 25 - 35 sec [facility] Comment: Recommended therapeutic PTT range for full dose unfractionated heparin is 80-114 seconds. Blood specimen (specimen) 04/15/2013 5:00 PM EDT 04/15/2013 11:16 PM EDT Narrative Resulting Agency Comment Spec In Lab Freddy Mejias MD HEMATOLOGY ORDERABLE S Performing Organization Address [facility] Co de Phone Number [facility] * POCT Glucose (04/15/2013 3:54 PM EDT) Glucose, POC 133 60 - 199 mg/dL [facility] Comment: Supplemental ranges: <110 mg/dL before meals <200 mg/dL all other times of the day Blood specimen (specimen) 04/15/2013 3:54 PM EDT 04/15/2013 3:54 PM EDT Freddy Mejias MD POINT OF CARE TEST O RDERABLES Performing Organization Address [facility] de Phone Number [facility] * EKG 12 Lead (04/15/2013 12:49 PM EDT) Ventricular rate 43 BPM MUSE SYSTEM Atrial Rate 43 BPM MUSE SYSTEM P-R Interval 156 ms MUSE SYSTEM QRS Duration 84 ms MUSE SYSTEM Q-T Interval 508 ms MUSE SYSTEM QTC Calculated (Bezet) 429 ms MUSE SYSTEM Calculated P Mendon 42 degrees MUSE SYSTEM Calculated R Mendon 36 degrees MUSE SYSTEM Calculated T Mendon 146 degrees MUSE SYSTEM INTERPRETATION Marked sinus bradycardia ST & T wave abnormality, consider anterolateral ischemia Abnormal ECG When compared with ECG of 15-APR-2013 07:17, (unconfirmed) No significant change was found Confirmed by MD NGHIA, JENNY ([id number]) on 04/16/2013 5:25:05 PM MUSE SYSTEM 04/15/2013 12:4 9 PM EDT 04/16/2013 5:25 PM EDT Tavon Reed MD ECG ORDERABLES Performing Organization Address [facility] de Phone Number MUSE SYSTEM * POCT Glucose (04/15/2013 11:27 AM EDT) Glucose, POC 99 60 - 199 mg/dL [facility] Comment: Supplemental ranges: <110 mg/dL before meals <200 mg/dL all other times of the day Blood specimen (specimen) 04/15/2013 11:27 AM EDT 04/15/2013 11:27 AM EDT Freddy Mejias MD POINT OF CARE TEST O RDERABLES Performing Organization Address [facility] de Phone Number [facility] * Cardiac Enzymes (04/15/2013 10:28 AM EDT) Troponin-T <0.03 <=0.03 ng/mL [facility] Comment: 0.03 ng/mL: Represents the 99th percentile upper reference limit for normals. >0.03 ng/mL: Elevated cardiac troponin T level indicative of myocardial damage. Diagnosis of acute, evolving or recent ND requires a typical rise and gradual fall [...] consensus document of the Joint Society of Cardiology/[place] College [employer] Cardiology Committee for the redefinition of myocardial infarction. Journal of the [place] College [employer]iology 2000; 36: 959-969] Creatine Kinase 47 0 - 160 unit/L [facility] Blood specimen (specimen) 04/15/2013 10:28 AM EDT 04/15/2013 10:37 AM EDT Narrative Resulting Agency Comment Spec In Lab Tavon Reed MD CHEMISTRY ORDERABLES Performing Organization Address [facility] de Phone Number [facility] * (ABNORMAL) APTT (04/15/2013 10:28 AM EDT) Partial Thromboplastin Time 66(H) 25 - 35 sec [facility] Comment: Recommended therapeutic PTT range for full dose unfractionated heparin is 80-114 seconds. Blood specimen (specimen) 04/15/2013 10:28 AM EDT 04/15/2013 10:37 AM EDT Narrative Resulting Agency Comment Spec In Lab Freddy Mejias MD HEMATOLOGY ORDERABLE S Performing Organization Address [facility]/ZIP Co de Phone Number [facility] * XR chest routine PA & lateral [...] * POCT Glucose (04/15/2013 7:59 AM EDT) Pathologist [facility] Glucose, POC 108 60 - 199 mg/dL [facility] Comment: Supplemental ranges: <110 mg/dL before meals <200 mg/dL all other times of the day Blood specimen (specimen) 04/15/2013 7:59 AM EDT 04/15/2013 7:59 AM EDT Freddy Mejias MD POINT OF CARE TEST O RDERABLES Performing Organization Address [facility]/ZIP Co de Phone Number [facility] * EKG 12 Lead (04/15/2013 7:17 AM EDT) Ventricular rate 57 BPM MUSE SYSTEM Atrial Rate 57 BPM MUSE SYSTEM P-R Interval 148 ms MUSE SYSTEM QRS Duration 82 ms MUSE SYSTEM Q-T Interval 474 ms MUSE SYSTEM QTC Calculated (Bezet) 461 ms MUSE SYSTEM Calculated P Mendon 41 degrees MUSE SYSTEM Calculated R [place]on 54 degrees MUSE SYSTEM Calculated T Mendon 123 degrees MUSE SYSTEM INTERPRETATION Sinus bradycardia [...] 4:54 AM EDT) Troponin-T <0.03 <=0.03 ng/mL [facility] Comment: 0.03 ng/mL: Represents the 99th percentile upper reference limit for normals. >0.03 ng/mL: Elevated cardiac troponin T level indicative of myocardial damage. Diagnosis of acute, evolving or recent ND requires a typical rise and gradual fall [...] consensus document of the Joint Society of Cardiology/[place] College of Cardiology Committee for the redefinition of myocardial infarction. Journal of the [place] College of Cardiology 2000; 36: 959-969] Creatine Kinase 36 0 - 160 unit/L [facility] Blood specimen (specimen) 04/15/2013 4:54 AM EDT 04/15/2013 5:33 AM EDT Narrative Resulting Agency Comment Spec In Lab Tavon Reed MD CHEMISTRY ORDERABLES [facility] * Hemoglobin A1c (04/15/2013 4:54 AM EDT) Hemoglobin A1c 6.1 4.3 - 6.1 % [facility] Comment: The [place] Diabetes Association (ADA) has stated that HbA1c [...] in Diabetes 2013. Diabetes Care 2013:36;suppl 1:S11-S66. Estimated Average Glucose 128 mg/dL [facility] Comment: eAG equivalents for HbA1c percentages: HbA1c(%) [...] into estimated average glucose values. ??Diabetes Care 2008:31(8):7358-4871. Blood specimen (specimen) 04/15/2013 4:54 AM EDT 04/15/2013 5:33 AM EDT Narrative Resulting Agency Comment Spec In Lab Tavon Reed MD CHEMISTRY ORDERABLES [facility] * (ABNORMAL) Lipid panel (fasting) (04/15/2013 4:54 AM EDT) [facility] Cholesterol, Total 159 <=199 mg/dL [facility] Comment: Recommendations of the NCEP Adult Treatment Panel for the following risk cutoff thresholds for the [place] population: Desirable: <200 mg/dL Borderline High: 200-239 mg/dL High: > or = 240 mg/dL Triglyceride 138 <=149 mg/dL [facility] Comment: Reference Range: Normal triglycerides: ??<150 mg/dL Borderline high: ??150-199 mg/dL High: ??200-499 mg/dL Very high: ??>sl=871 mg/dL KIP 2001; 285(19):4048-7981 HDL Cholesterol 30(L) >=40 mg/dL [facility] Comment: Reference range: ??Low HDL: ?? < 40 mg/dL ??Normal: ?40-60 mg/dL ??Desirable: > 60 mg/dL KIP 2001; 285(19):6552-8209 LDL Cholesterol 101(H) <=99 mg/dL [facility] Comment: Reference range: ?? Optimal: ?<100 mg/dL ?? Near Optimal/Above Optimal: ?? 100-129 mg/dL ?? Borderline high: ?130-159 mg/dL ?? High: ? 160-189 mg/dL ?? Very high: ?>hw=834 mg/dL KIP 2001: 285(19):8229-7884 Cholesterol/HDL Ratio 5.3 ratio [facility] Comment: A Cholesterol to HDL ratio below 4:1 is desirable. ??Studies suggest that increased CAD risk occurs at ratios above 5 for females and above 6 for men. ? [place] Heart Association ??(http://www.americanheart.org) ? Sadie Int Med, 1994; 121:641 ? AM J Med, 1998; 105(1A):48S Blood specimen (specimen) 04/15/2013 4:54 AM EDT 04/15/2013 5:33 AM EDT Narrative Resulting Agency Comment Spec In Lab Tavon Reed MD CHEMISTRY ORDERABLES [facility] * (ABNORMAL) Hepatic Function Panel (04/15/2013 4:54 AM EDT) Protein, Total 6.3(L) 6.4 - 8.3 gm/dL [facility] Albumin 3.8 3.2 - 5.2 gm/dL [facility] Aspartate Aminotransferase 14 0 - 30 unit/L [facility] Alanine Aminotransferase 12 0 - 30 unit/L [facility] Alkaline Phosphatase 86 40 - 104 unit/L [facility] Bilirubin, Total 0.1(L) 0.2 - 1.3 mg/dL [facility] Bilirubin, Direct <0.1 0.0 - 0.3 mg/dL [facility] Blood specimen (specimen) 04/15/2013 4:54 AM EDT 04/15/2013 5:33 AM EDT Narrative Resulting Agency Comment Spec In Lab Tavon Reed MD CHEMISTRY ORDERABLES Performing Organization Address [facility] Co de Phone Number [facility] * TSH (04/15/2013 4:54 AM EDT) Thyroid Stimulating Hormone 1.73 0.27 - 4.20 mcIU/mL [facility] Blood specimen (specimen) 04/15/2013 4:54 AM EDT 04/15/2013 5:33 AM EDT Narrative Resulting Agency Comment Spec In Lab Tavon Reed MD CHEMISTRY ORDERABLES Performing Organization Address City/[facility] Co de Phone Number [facility]EL[facility] * Phosphorus (04/15/2013 4:54 AM EDT) Phosphorus 3.5 2.5 - 4.5 mg/dL [facility] Blood specimen (specimen) 04/15/2013 4:54 AM EDT 04/15/2013 5:33 AM EDT Narrative Resulting Agency Comment Spec In Lab Tavon Reed MD CHEMISTRY ORDERABLES Performing Organization Address City/[facility] Co de Phone Number [facility] * Magnesium (04/15/2013 4:54 AM EDT) Magnesium 0.84 0.69 - 1.07 mmol/L [facility] Blood specimen (specimen) 04/15/2013 4:54 AM EDT 04/15/2013 5:33 AM EDT Narrative Resulting Agency Comment Spec In Lab Tavon Reed MD CHEMISTRY ORDERABLES Performing Organization Address [facility] Phone Number [facility] * Calcium (04/15/2013 4:54 AM EDT) Calcium 8.9 8.5 - 10.5 mg/dL [facility] Blood specimen (specimen) 04/15/2013 4:54 AM EDT 04/15/2013 5:33 AM EDT Narrative Resulting Agency Comment Spec In Lab Tavon Reed MD CHEMISTRY ORDERABLES Performing Organization Address [facility] Phone Number [facility] * (ABNORMAL) APTT (04/15/2013 4:53 AM EDT) Partial Thromboplastin Time 62(H) 25 - 35 sec [facility] Comment: Recommended therapeutic PTT range for full dose unfractionated heparin is 80-114 seconds. Blood specimen (specimen) 04/15/2013 4:53 AM EDT 04/15/2013 5:33 AM EDT Narrative Resulting Agency Comment Spec In Lab Tavon Reed MD HEMATOLOGY ORDERABLE S Performing Organization Address [facility] de Phone Number [facility] * Prothrombin Time (04/15/2013 4:53 AM EDT) Prothrombin Time 12.9 12.0 - 15.0 sec [facility] Comment: [facility] Transfusion Committee Guidelines: INR less than 2.0, PTT less than OR equal to 43.5 seconds, or Fibrinogen greater than or equal to 100 mg/dl indicate adequate procoagulant activity for hemostasis in patients without underlying bleeding disorders. International Normalization Ratio 0.9 0.9 - 1.1 [facility] Blood specimen (specimen) 04/15/2013 4:53 AM EDT 04/15/2013 5:33 AM EDT Narrative Resulting Agency Comment Spec In Lab Tavon Reed MD HEMATOLOGY ORDERABLE S Performing Organization Address [facility] Co de Phone Number [facility] * Prothrombin Time (04/15/2013 12:45 AM EDT) Prothrombin Time 13.7 12.0 - 15.0 sec [facility] Comment: [facility] Transfusion Committee Guidelines: INR less than 2.0, PTT less than OR equal to 43.5 seconds, or Fibrinogen greater than or equal to 100 mg/dl indicate adequate procoagulant activity for hemostasis in patients without underlying bleeding disorders. International Normalization Ratio 1.0 0.9 - 1.1 [facility] Blood specimen (specimen) 04/15/2013 12:45 AM EDT 04/15/2013 12:53 AM EDT Narrative Resulting Agency Comment Spec In Lab Tavon Reed MD HEMATOLOGY ORDERABLE S Performing Organization Address [facility] de Phone Number [facility] * APTT (04/14/2013 11:55 PM EDT) Partial Thromboplastin Time 28 25 - 35 sec [facility] Comment: Recommended therapeutic PTT range for full dose unfractionated heparin is 80-114 seconds. Blood specimen (specimen) 04/14/2013 11:55 PM EDT 04/15/2013 12:07 AM EDT Narrative Resulting Agency Comment Spec In Lab Tavon Reed MD HEMATOLOGY ORDERABLE S Performing Organization Address [facility] de Phone Number [facility] * EKG 12 Lead (04/14/2013 10:59 PM EDT) Ventricular rate 65 BPM MUSE SYSTEM Atrial Rate 65 BPM MUSE SYSTEM P-R Interval 134 ms MUSE SYSTEM QRS Duration 86 ms MUSE SYSTEM Q-T Interval 424 ms MUSE SYSTEM QTC Calculated (Bezet) 440 ms MUSE SYSTEM Calculated P Mendon 26 degrees MUSE SYSTEM Calculated R Mendon 17 degrees MUSE SYSTEM Calculated T Mendon 36 degrees MUSE SYSTEM INTERPRETATION Normal sinus rhythm with sinus arrhythmia T wave abnormality, consider anterior ischemia Abnormal ECG When compared with ECG of 14-APR-2013 22:57, (unconfirmed) No significant change was found Confirmed by MD AGRAWAL MARK ([id number]) on 04/16/2013 11:34:39 AM MUSE SYSTEM 04/14/2013 10:5 9 PM EDT 04/16/2013 11:34 AM EDT Tavon Reed MD ECG ORDERABLES Performing Organization Address [facility] Phone Number MUSE SYSTEM * EKG 12 Lead (04/14/2013 10:57 PM EDT) Ventricular rate 56 BPM MUSE SYSTEM Atrial Rate 56 BPM MUSE SYSTEM P-R Interval 144 ms MUSE SYSTEM QRS Duration 84 ms MUSE SYSTEM Q-T Interval 430 ms MUSE SYSTEM QTC Calculated (Bezet) 414 ms MUSE SYSTEM Calculated P Mendon 25 degrees MUSE SYSTEM Calculated R Mendon 22 degrees MUSE SYSTEM Calculated T Mendon 41 degrees MUSE SYSTEM INTERPRETATION Sinus bradycardia with Sinus arrhythmia T wave abnormality, consider anterolateral ischemia Abnormal ECG Confirmed by MD AGRAWAL MARK ([id number]) on 04/16/2013 11:34:11 AM MUSE SYSTEM 04/14/2013 10:5 7 PM EDT 04/16/2013 11:34 AM EDT Tavon Reed MD ECG ORDERABLES Performing Organization Address [facility] Phone Number MUSE SYSTEM * EKG 12 Lead (04/14/2013 10:56 PM EDT) Ventricular rate 53 BPM MUSE SYSTEM Atrial Rate 53 BPM MUSE SYSTEM P-R Interval 142 ms MUSE SYSTEM QRS Duration 74 ms MUSE SYSTEM Q-T Interval 420 ms MUSE SYSTEM QTC Calculated (Bezet) 394 ms MUSE SYSTEM Calculated P Mendon 32 degrees MUSE SYSTEM Calculated R Mendon 22 degrees MUSE SYSTEM Calculated T Mendon 39 degrees MUSE SYSTEM INTERPRETATION Sinus bradycardia Sinus arrhythmia T wave abnormality, consider anterolateral ischemia Abnormal ECG Confirmed by MD AGRAWAL MARK ([id number]) on 04/16/2013 11:33:23 AM MUSE SYSTEM 04/14/2013 10:5 6 PM EDT 04/16/2013 11:33 AM EDT Freddy Mejias MD ECG ORDERABLES MUSE SYSTEM * POCT urine (04/14/2013 10:41 PM EDT) Pathologist [facility] POC Urine HCG Negative Negative - Negative POC Control Internal Controls Acceptable Tavon Reed MD POINT OF CARE TEST O RDERABLES * POCT urine dipstick (04/14/2013 10:41 PM EDT) [facility] POC Sp [place] 1.010 1.002 - 1.030 POC pH, UA [...] Differential, Automated (04/14/2013 9:10 PM EDT) Pathologist [facility] Neutrophil % 59.6 34.0 - 71.0 % [facility] Neutrophil Absolute 7.47(H) 1.50 - 6.30 x10(3)/mc L [facility] Lymph % 31.9 19.0 - 53.0 % [facility] Lymphocytes Abs 4.0(H) 1.0 - 3.6 x10(3)/mc L [facility] Monocyte % 6.8 4.0 - 13.0 % [facility] Monocyte Abs 0.8 0.2 - 1.0 x10(3)/mc L [facility] Eos % 1.0 0.0 - 7.0 % [facility] Eosinophils Abs 0.1 0.0 - 0.5 x10(3)/mc L [facility] Basophil % 0.5 0.0 - 2.0 % [facility] Baso Absolute 0.1 0.0 - 0.2 x10(3)/mc L [facility]ER [...] performed. Immature Gran Absolute 0.03 0.00 - 0.05 x10(3)/mc L [facility] Blood specimen (specimen) 04/14/2013 9:10 PM EDT 04/14/2013 9:15 PM EDT Tavon Reed MD HEMATOLOGY ORDERABLE S Performing Organization Address [facility] de Phone Number [facility] * Gold Tube HOLD (04/14/2013 9:10 PM EDT) Gold Hold Sample in lab. [facility] Blood specimen (specimen) 04/14/2013 9:10 PM EDT 04/14/2013 9:15 PM EDT Tavon Reed MD CHEMISTRY ORDERABLES Performing Organization Address [facility] de Phone Number [facility] * Blue Tube HOLD (04/14/2013 9:10 PM EDT) Blue Hold Sample in lab. [facility] Blood specimen (specimen) 04/14/2013 9:10 PM EDT 04/14/2013 9:15 PM EDT Tavon Reed MD HEMATOLOGY ORDERABLE S Performing Organization Address [facility] Co de Phone Number [facility] * (ABNORMAL) CBC (with Diff) (04/14/2013 9:10 PM EDT) White Blood Cell 12.5(H) 4.0 - 10.0 x10(3)/mc L [facility] Red Blood Cell 4.58 3.93 - 5.22 x10(6)/mc L [facility] Hemoglobin 13.3 11.2 - 15.7 gm/dL [facility] Hematocrit 41.6 34.0 - 45.0 % [facility] Mean Cell Volume 90.8 79.0 - 94.0 fL [facility] Mean Cell Hemoglobin 29.0 26.6 - 32.2 pg [facility] Mean Cell Hemoglobin Concentration 32.0 32.0 - 36.5 gm/dL [facility] Platelet 265 145 - 370 x10(3)/mc L [facility] RDW Standard Deviation 50.8(H) 35.0 - 46.0 fL [facility] RDW coefficient of variation 15.4(H) 10.9 - 14.4 % [facility] Mean Platelet Volume 10.3 9.0 - 12.0 fL [facility] Blood specimen (specimen) 04/14/2013 9:10 PM EDT 04/14/2013 9:15 PM EDT Narrative Resulting Agency Comment Spec In Lab Tavon Reed MD HEMATOLOGY ORDERABLE S [facility] * Cardiac Enzymes (04/14/2013 9:10 PM EDT) [facility] Troponin-T <0.03 <=0.03 ng/mL [facility] Comment: 0.03 ng/mL: Represents the 99th percentile upper reference limit for normals. >0.03 ng/mL: Elevated cardiac troponin T level indicative of myocardial damage. Diagnosis of acute, evolving or recent ND requires a typical rise and gradual fall [...] consensus document of the Joint Society of Cardiology/[place] College [employer] Cardiology Committee for the redefinition of myocardial infarction. Journal of the [place] College of Cardiology 2000; 36: 959-969] Creatine Kinase 49 0 - 160 unit/L [facility] Blood specimen (specimen) 04/14/2013 9:10 PM EDT 04/14/2013 9:14 PM EDT Narrative Resulting Agency Comment Spec In Lab Tavon Reed MD CHEMISTRY ORDERABLES [facility] * Glucose, random (04/14/2013 9:10 PM EDT) Glucose 114 60 - 199 mg/dL [facility] Comment:Diabetes: >=200 mg/d L plus symptoms Blood specimen (specimen) 04/14/2013 9:10 PM EDT 04/14/2013 9:14 PM EDT Narrative Resulting Agency Comment Spec In Lab Tavon Reed MD CHEMISTRY ORDERABLES Performing Organization Address City/[facility]/ZIP Co de Phone Number [facility] * Creatinine (04/14/2013 9:10 PM EDT) Creatinine 0.78 0.70 - 1.20 mg/dL [facility] Comment: Please note that the pediatric reference intervals supplied above were not validated at [facility]. Results from pediatric patients should be interpreted in conjunction to the patient's age, height and muscle mass. Est Glomerular Filtration Rate >60 >=60 [facility] Comment: This estimated GFR (eGFR) value was [...] Reed MD CHEMISTRY ORDERABLES Performing Organization Address City/[facility] Co de Phone Number [facility]EL[facility] CORTEZ[facility] * BUN (04/14/2013 9:10 PM EDT) Blood Urea Nitrogen 16 8 - 18 mg/dL [facility] Blood specimen (specimen) 04/14/2013 9:10 PM EDT 04/14/2013 9:14 PM EDT Narrative Resulting Agency Comment Spec In Lab Tavon Reed MD CHEMISTRY ORDERABLES Performing Organization Address [facility] Co de Phone Number [facility]ILL[facility] * Electrolytes panel (04/14/2013 9:10 PM EDT) [...] 99 98 - 107 mmol/L [facility] Carbon Dioxide 27 22 - 31 mmol/L [facility]ILL[facility] Anion Gap 12 5 - 15 mmol/L [facility] Blood specimen (specimen) 04/14/2013 9:10 PM EDT 04/14/2013 9:14 PM EDT Narrative Resulting Agency Comment Spec In Lab Tavon Reed MD CHEMISTRY ORDERABLES Performing Organization Address City/[facility]/ZIP Co de Phone Number [facility] * EKG 12 Lead (04/14/2013 8:57 PM EDT) Ventricular rate 67 BPM MUSE SYSTEM Atrial Rate 67 BPM MUSE SYSTEM P-R Interval 140 ms MUSE SYSTEM QRS Duration 72 ms MUSE SYSTEM Q-T Interval 372 ms MUSE SYSTEM QTC Calculated (Bezet) 393 ms MUSE SYSTEM Calculated P Mendon 44 degrees MUSE SYSTEM Calculated R Mendon 36 degrees MUSE SYSTEM Calculated T Mendon 48 degrees MUSE SYSTEM INTERPRETATION Sinus rhythm [...] at 0126, Until Tu04/17/13 at 1743, Pain, Headaches, Maximum dose of [...] in sodium chloride 0.9% 50 mL infusion ([employer]) CONTINUOUS PRN, Starting on Tue04/16/13 at 1054, [...] 4,000 Units, Intravenous, ONCE, 1 dose, On 04/15/13 at 0015, Patient Weight 110-114 kg INITIAL [...] than 145 sec X 2 - call lead housekeeper See Bolus dosing guidance for aPTT values [...] Tue04/15/13 at 0900, Until Discontinued, Routine Given 04/16/2013 8:40 PM EDT 25 mg Given 04/15/2013 10:31 AM EDT 25 mg levothyroxine (SYNTHROID) tablet 50 mcg 50 mcg, Oral, EVERY MORNING, First dose on Tue04/15/13 at 0600, Until Discontinued, Routine Given 04/17/2013 [...] 04/15/13 at 0900, Until Discontinued, Routine Given 04/17/2013 [...] over 24 Hours, DAILY, First dose on [place] 04/15/13 at 0900, Until Discontinued, Routine Given 04/17/2013 [...] Sublingual, EVERY 5 MIN PRN, Starting on [place] 04/15/13 at 0126, Until 04/17/13 at 1743, Chest pain, May repeat every [...] CONTINUOUS, Starting on 04/14/13 at 2330, Until [place] 04/15/13 at 1227, Maximum dose: 200 mcg/min [...] RN) 1000 (Given - Provider: Rocio Garrison, FABIANA) 0926 (Given - Provider: Margarita Sharma, FABIANA) atorvastatin (LIPITOR) tablet 80 mg 80 mg, Oral, EVERY EVENING, First dose on Tue04/15/13 at 0145, Until Discontinued, Routine 0307 (Given - Provider: Dejah Ladd, RN)1600 (Given - Provider: Juliann Crystal, FABIANA) 1617 (Given - Provider: Rocio Garrison, FABIANA) bumetanide (BUMEX) injection 0.5 mg (COMPLETED) 0.5 mg, Intravenous, ONCE, 1 dose, On Tue04/17/13 at 0900 0930 (Given - Provider: Margarita Sharma, FABIANA) bumetanide (BUMEX) injection 1 mg (COMPLETED) 1 mg, Intravenous, ONCE, 1 dose, On Tue04/16/13 at 1915 1952 (Given - Provider: Katerine Urban RN) clopidogrel (PLAVIX) tablet 300 mg (COMPLETED) 300 mg, Oral, ONCE, 1 dose, On 04/15/13 at 0345, Routine 0501 (Given - Provider: [...] of Procedure), Routine 1000 (Given - Provider: Roico Garrison RN) heparin (porcine) injection 4,000 Units (CANCELED) 4,000 Units, Intravenous, ONCE, 1 dose, On 04/15/13 at 0015, Patient Weight 110-114 kg INITIAL [...] Garrison RN) 0925 (Given - Provider: Margarita Sharma, FABIANA) lisinopril (PRINIVIL;ZESTRIL) tablet 5 mg (CANCELED) 5 [...] August RN) 1000 (Given - Provider: Rocio Garrison, FABIANA)1300 (Not Given - Provider: Rocio Garrison RN [...] 2200 (Given by Other - Provider: Tegan August, FABIANA) 0600 (Given - Provider: Tegan August RN)1618 (Given - Provider: Rocio Garrison RN)2228 (Given - Provider: Katerine Urban, RN) 0555 (Given - Provider: Katerine Urban, RN)1432 (Given - Provider: Margarita Sharma RN) [...] Rocio Garrison RN)2145 (Given - Provider: Katerine Urban RN) 0932 (Given - Provider: Margarita Sharma RN) traZODone (DESYREL) tablet 50 mg (CANCELED) 50 mg, Oral, NIGHTLY, First dose on 04/15/13 at 0145, Until Discontinued, Routine 0241 (Given - Provider: Dejah Ladd RN)2100 (Given by Other - Provider: Tegan August, FABIANA) 2100 (Given - Provider: Katerine Urban RN) Continuous Medication Order 04/15/2013 04/16/2013 04/17/2013 heparin [...] than 145 sec X 2 - call lead housekeeper See Bolus dosing guidance for aPTT values less than 80 seconds under PRN medications, Routine 0015 (New Bag - Provider: Donna Saunders RN)0554 (Rate/Dose Change - Provider: Dejah Ladd RN)1101 (Rate/Dose Change - Provider: Juliann Crystal, FABIANA)1545 (Rate/Dose Verify - Provider: Juliann Crystal, FABIANA) 0504 (Rate/Dose Change - Provider: Tegan August, FABIANA) nitroGLYcerin 50 mg in dextrose 5% 250 mL infusion (CANCELED) 0-20 mcg/min (rounded to 0-6 mL/hr), Intravenous, CONTINUOUS, Starting on 04/14/13 at 2330, Until 04/15/13 at 1227, Maximum dose: 200 mcg/min Please hold for SBP < 125 and titrate to achieve SBP 130-140bpm., STAT 0130 (Rate/Dose Change - Provider: Dejah Ladd, RN)0251 (Rate/Dose Verify - Provider: Dejah Ladd [...] Jazmin Esparza, RN)1250 (Restarted - Provider: Cristobal Hui RN)1333 (New Bag - Provider: Cristobal Hui RN) sodium chloride 0.9% infusion (CANCELED) 100 mL/hr, Intravenous, CONTINUOUS, Starting on Tue04/15/13 at 1700, Until Tue04/17/13 at 1743 1601 (New Bag - Provider: Juliann Crystal RN) 0507 (Rate/Dose Change - Provider: Tegan August RN - Comment: verbal oprder per )0556 (Rate/Dose [...] 2229 1230 (New Bag - Provider: Cristobal Hui RN) PRN Medication Order 04/15/2013 04/16/2013 04/17/2013 [...] in sodium chloride 0.9% 50 mL infusion (F[employer] AGENT) (CANCELED) CONTINUOUS PRN, Starting on Tue04/16/13 at [...] López Rice RN)1450 (Given - Provider: Cristobal Hui RN)1544 (Given - Provider: Rocio Garrison RN) [...] > 160mmHg. 1321 (Given - Provider: Cristobal Hui RN) hydroCODone-acetaminophen (VICODIN) 5-500 mg per tablet 1 tablet (CANCELED) 1 tablet, Oral, EVERY 4 HOURS PRN, Starting on Tue04/15/13 at 0126, Until Tue04/17/13 at 1743, Pain, Maximum dose of acetaminophen is 4000 mg from all sources in 24 hours., Routine 0240 (Given - Provider: Dejah Ladd RN)1030 (Given - Provider: Juliann Crystal RN)1443 (Given - Provider: Juliann Crystal RN) 2047 (Given - Provider: Katerine Urban RN) 0937 (Given - Provider: Margarita Sharma RN)1400 (Given - Provider: Margarita Sharma RN) iohexol (OMNIPAQUE) 350 mg iodine/mL injection (CANCELED) [...] Unit), Routine 1345 (Given - Provider: Cristobal Hui RN)1451 (Given - Provider: Cristobal Hui RN) nitroGLYcerin (NITROSTAT) SL tablet 0.4 mg 0.4 [...] Routine 0616 (Given - Provider: Dejah Ladd, RN)1545 (Given - Provider: Juliann Crystal, RN) 1000 (Given - Provider: Rocio Garrison, [...] Patch documented in this encounter Care Teams Fishing Vessel Deckhand Relationship Specialty Start Date End Date Adriana Perla APRN [address] [place] [address] PCP - General 06/16/10 06/27/18 documented as of this encounter
--- OUTSIDE RECORDS SUMMARY | 2024-08-01 18:40 | XMS_ITS | Encounter Summary ---
[place] [address] Care Team Providers Care History Faculty Member Name Role Phone Aman Lawrence APRN Primary Care Provider [phone] Reason for Visit * Reason Onset Date Comments Other 05/31/2013 tobacco cessatio n referral rec'd from Jorge Lopez. T/C to pt re: tobacco cessation resources. See documentation Encounter Details Date Type Department Care Team (Late st Contact Info) Description 05/31/2013 [place] [address] Indu Torres RN Other (tobacco cessation referral [...] been smoking 2 ppd. [facility] and would like to come to the [facility] Tobacco Treatment clinic. O/A: Positive recognition was [...] are available in her local area: [facility] is offering FreshStart Classes at the [facility] in [place], [place] [phone] and there is a one-on-one tobacco counseling program & free NRT at the [facility] on Tuesday's 9-3 pm. The [place] [facility] ([phone] offers free telephonic tobacco counseling and free NRT to those whose prescription plans do not cover for the OTC medication. Discussed Reviewed the contents in the [facility] Tobacco cessation packet & D Tobacco treatment free clinic which is held on Tuesday and 9:30-11:30 in the [facility] on 4-H. Plan: Mrs. Rico plans to contact the [facility] in [facility] for smoking cessation classes and one-on-one to get ready for her Quit date for Jun 29, 2013. She has all contact information and states she will call [facility] Tobacco treatment Program if she opts to schedule an appointment for 2012. Indu Torres RN, MS, C-TTS Beeper 1214 documented in this encounter Plan of Treatment Not on file documented as of this encounter Visit Diagnoses Not on filedocumented in this encounter Care Teams History Faculty Member Relationship Specialty Start Date End Date Aman Lawrence APRN [address] [place] [address] PCP - General 06/16/10 06/27/18 documented as of this encounter
--- OUTSIDE RECORDS SUMMARY | 2024-08-01 18:40 | XMS_ITS | Encounter Summary ---
Author Organization [facility] Address [facility] [address] Care Team Providers Care Mobile Plant Operators Name Role Phone Aman Lawrence APRN Primary Care Provider [phone] Reason for Visit * Reason Onset Date Comments Medication Problem 04/18/2013 Encounter Details Date Type Department Care Team (Late st Contact Info) Description 04/18/2013 Telephone Cardiology at [address] [id number] Freddy Mejias MD [facility] [place] [address] Medication Problem Social History Tobacco Use Types [...] take it. She can be reached at [phone]. Thank you. documented in this encounter Plan of Treatment Not on file documented as of this encounter Visit Diagnoses Not on filedocumented in this encounter Care Teams Mobile Plant Operators Relationship Specialty Start Date End Date Aman Lawrence APRN [address] [place] [address] PCP - General 06/16/10 06/27/18 documented as of this encounter
--- OUTSIDE RECORDS SUMMARY | 2024-08-01 18:40 | XMS_ITS | Encounter Summary ---
Author Organization [facility] [place] [address] Care Team Providers Care Oil Plant Operator Name Role Phone Aman Lawrence APRN Primary Care Provider [phone] Reason for Visit * Reason Comments Medication Refill Encounter Details Date Type Department Care Team (Late st Contact Info) Description 06/06/2013 Refill Intermediate [place] [id number] Tamar Kay MD [facility] [place] [address] Social History Tobacco Use Types Packs/Day Years [...] on filedocumented in this encounter Care Teams Oil Plant Operator Relationship Specialty Start Date End Date Aman Lawrence APRN [address] [place] [address] PCP - General 06/16/10 06/27/18 documented as of this encounter
--- OUTSIDE RECORDS SUMMARY | 2024-08-01 18:40 | XMS_ITS | Encounter Summary ---
[place] [address] Care Team Providers Care Helmet Hat Brim Cutter Name Role Phone Aman Lawrence APRN Primary Care Provider [phone] Encounter Details Date Type Department Care Team (Late st Contact Info) Description 06/20/2013 Notes [place] [address] Monique Lopez Social History Tobacco Use Types [...] on filedocumented in this encounter Care Teams Helmet Hat Brim Cutter Relationship Specialty Start Date End Date Aman Lawrence APRN [address] [place] [address] PCP - General 06/16/10 06/27/18 documented as of this encounter
--- OUTSIDE RECORDS SUMMARY | 2024-08-01 18:40 | XMS_ITS | Encounter Summary ---
Author Organization [facility] [place] [address] Care Team Providers Care Lean Facilitator Name Role Phone Adriana Perla APRN Primary Care Provider [phone] Reason for Visit * Reason Comments Chest Pain Encounter Details Date Type Department Care Team (Late st Contact Info) Description 04/16/2013 10:00 AM EDT - 04/16/2013 11:00 AM EDT Surgery [place] [id number] Sergo Goins MD [facility] [place] [address] CARDIAC CATHETERIZATION Social History Tobacco Use Types [...] 2, 2PM Dr. Stephanie Osman [address] [place] [address] May 10, 8:10AM Ambrosio Maloney Cardiology [facility] Your Primary Care Provider: ADRIANA PERLA APRN [address] / [place] [address] For questions regarding this document or issues relating to this hospitalization on the Medical Service, please contact your inpatient physician through the [facility] Bottle House Cleaners Supervisor . Issues afterhours and on weekends will be handled by the Hospitalist staff on-call. * Attachments The following attachments cannot be sent through Care Everywhere. * PERCUTANEOUS CORONARY INTERVENTION: WHAT TO EXPECT AT HOME (BRITISH) documented in this encounter Medications at Time [...] vitamins (B COMPLEX-VITAMIN B12) tablet 09/23/2010 11/19/2016 vzlpxsfuifhe-repi-ugv erals (COMPLETE MULTIVITAMIN) Tab tablet 1 Tablet(s), PO, Once daily 09/23/2010 11/19/2016 calcium citrate-vitamin D (CITRACAL+D) 315-200 mg-unit per tablet 2 Tablet(s), PO, Twice daily 09/23/2010 11/19/2016 ergocalciferol (VITAMIN D) 50,000 unit capsule [id number], PO, TWICE a week 09/23/2010 11/19/2016 documented as of this encounter Progress Notes * Margarita Sharma RN - 04/17/2013 3:37 PM EDT 1540- Discharge orders available. Pt and nurse care manager given discharge AVS, discharge summary, percutaneous intervention care instructions, medication information, diabetes tool kit and nutrition information via verbal and written communication. Pt and nurse care manager expressed a correct verbal understanding of discharge instructions, percutaneous intervention care instructions and medication information. Pt disconnected from telemetry and IVs removed. Pt brought to [facility] via wheelchair and discharged for home [...] a CHO level 2 diet. Recommend adding [facility] (Heart Healthy) to current diet order. 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 Recommend a daily multivitamin with minerals, 500 mcg of vitamin B12 daily, and 600 mg of calcium twice daily. Pt reports taking these vitamins consistently at home. P: 1. Recommend adding [facility] (Heart Healthy) to current diet order. 2. [...] at this time. Andres Good, MARYLIN Beeper# [id number] * Freddy Mejias MD - 04/17/2013 5:23 [...] Somers DO (PGY-1) Internal Medicine Resident Pager [phone] STAFF ADDENDUM Patient interviewed and examined. Medical [...] tomorrow as appropriate. Andres Good, PT Beeper# [id number] * Jeremy Radford OT - 04/16/2013 10:24 AM EDT Chart reviewed and orders received. Patient at computer laboratory technician this morning. RN reports patient mobilizingwell and [...] Somers DO (PGY-1) Internal Medicine Resident Pager [phone] STAFF ADDENDUM Patient interviewed and examined. Medical [...] tablets and recommended she follow-up with a Railroad Dispatcher. This appointment was scheduled for 04/19 (5 [...] with 325mg of Aspirin in route to [facility]. While in the ED, [...] 05/12/00 Open cholecystectomy ~1991 CHIP/BSO 1985 in [place] for ovarian cyst Complete dental extractions 1998 [...] Social history: , no children. Lives in [place]. 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 Smoking: Active smoker, 2ppd [...] story is co ncerning for a Type-I OK. I suspect she will need a Cardiac [...] Rae, elder sister) Kasia Cruz, PGY-2 Pager [phone] STAFF ADDENDUM Patient interviewed and examined. Medical [...] 04/18/2013 1:04 PM EDTAssociated Order(s): SCAN DOC: TELEPHONE SALES AGENT * Provider, Scanning - 04/16/2013 4:59 PM EDTAssociated Order(s): CARDIAC CATHETERIZATION * Provider, Scanning - 04/16/2013 11:59 AM EDTAssociated Order(s): CARDIAC CATHETERIZATION documented in this encounter ED Notes * Donna Saunders RN - 04/15/2013 12:19 AM EDT Awaiting transfer to [facility]. * Donna Saunders RN - 04/15/2013 12:17 [...] has arragned for her to see a tool and equipment rental clerk this coming . She comes in tonight [...] Score for ED patients with possible ACS, ([facility] 2009February 03:182(10):8504-65): 1) Age >= 65 years? +1 2) [...] of 19%. Score: 14-day triple point (mortality, OK, revascularization) 0 1.8% 1 4.0% 2 8.3% [...] to their service. Tavon Reed MD 04/14/13 9831 Recent Results (from the past 24 hour(s)) [...] URINE DIPSTICK Component Value Range POC Sp Ramsey 1.010 1.002 - 1.030 POC pH, UA [...] Internal Controls Acceptable Tavon Reed MD 04/14/13 3952 Tavon Reed MD 04/14/13 5408 * Vandana Marte RN - 04/14/2013 9:32 [...] tablets and recommended she follow-up with a Railroad Dispatcher. This appointment was scheduled for 04/19 (5 [...] with 325mg of Aspirin in route to [facility]. While in the ED, [...] complex vitamins (B COMPLEX-VITAMIN B12) tablet Oral ptpeatxhhuva-ycqq-xrafcccs (COMPLETE MULTIVITAMIN) Tab tablet 1 Tablet(s), PO, Once daily, Oral calcium citrate-vitamin D (CITRACAL+D) 315-200 mg-unit per tablet 2 Tablet(s), PO, Twice daily, Oral ergocalciferol (VITAMIN D) 50,000 unit capsule [id number], PO, TWICE a week, Oral varenicline (CHANTIX) [...] 2PM Dr. Stephanie Osman [address] [place] [address] May 10, 8:10AM Ambrosio Maloney Cardiology [facility] 4A Your Primary Care Provider: ADRIANA PERLA APRN [address] [place] [address] For questions regarding this document or issues relating to this hospitalization on the Medical Service, please contact your inpatient physician through the [facility] Bottle House Cleaners Supervisor . Issues afterhours and on weekends will be handled by the Hospitalist staff on-call. General Instructions None Future Appointments and Orders Future Appointments: Provider: Department: Dept Phone: Center: 05/03/2013 1:30 PM [facility] Cardiac Rehab Prog Non-Invasive Cardiology Lab [phone] None 05/10/2013 8:10 AM Freddy Mejias MD Cardiology [phone] [facility] Joint Appt Nurse One Cardiology Intake, RN PETEY 4A [phone] [facility] Future Orders Please Complete By Expires Referral to Cardiac Rehab [[id number] Custom] Process Instructions: If no progress note charted, please enter Clinical details in comments. Scheduling Instructions: Comments: Cardiac rehab at [facility] Questions: Responses: Reason for referral Angina, PCI Provider Contact Information: ADRIANA PERLA, FIRMWARE MANAGER [address] / [facility] [id number] Discharge References/Attachments: Discharge References/Attachments PERCUTANEOUS CORONARY INTERVENTION: WHAT TO EXPECT AT HOME (BRITISH) Signed: Jefe Sharma, PGY-3 DATE: 04/19/13 * [...] parameters for home exercise. Phase II Referral: [facility], intake 05/03 at 1:30 [...] Breath sounds are distant, but clear. On ekg monitor she is in NSR no ectopy. [...] Procedure Name Priority Date/Time Associated Diagnosis Comments TELEPHONE SALES AGENT SCAN 04/18/2013 1:04 PM EDT CARDIAC CATHETERIZATION [...] Routine 04/16/2013 1:16 PM EDT CARDIAC ENZYMES ([facility]) STAT 04/16/2013 12:00 PM [...] Routine 04/15/2013 11:27 AM EDT CARDIAC ENZYMES ([facility]) Routine 04/15/2013 10:28 AM EDT APTT STAT 04/15/2013 10:28 AM EDT XR CHEST PA AND LATERAL Routine 04/15/20 13 8:31 AM EDT POCT GLUCOSE Routine 04/15/2013 7:59 AM EDT EKG 12-LEAD Routine 04/15/2013 7:17 AM EDT Unstable angina XR CHEST PA AND LATERAL STAT 04/15/20 13 5:07 AM EDT CARDIAC ENZYMES ([facility]) Routine 04/15/2013 4:54 AM EDT TSH Routine [...] STAT 04/14/2013 9:10 PM EDT CARDIAC ENZYMES ([facility]) STAT 04/14/2013 9:10 PM EDT CREATININE STAT 04/14/2013 9:10 PM EDT CBC (WITH DIFF) STAT 04/14/2013 9:10 PM EDT BUN STAT 04/14/2013 9:10 PM EDT GLUCOSE STAT 04/14/2013 9:10 PM EDT ELECTROLYTES PANEL STAT 04/14/2013 9: 10 PM EDT EKG 12-LEAD STAT 04/14/2013 8:57 PM EDT documented in this encounter Results * SCAN DOC: TELEPHONE SALES AGENT (04/18/2013 1:04 PM EDT) Anatomical Region Laterality [...] Glucose, POC 138 60 - 199 mg/dL [facility] Comment: Supplemental ranges: <110 mg/dL before meals <200 mg/dL all other times of the day Blood specimen (specimen) 04/17/2013 11:50 AM EDT 04/17/2013 11:50 AM EDT Freddy Mejias MD POINT OF CARE TEST O RDERABLES Performing Organization Address [facility] de Phone Number [facility] * (ABNORMAL) Hemoglobin (04/17/2013 11:13 AM EDT) Hemoglobin 10.2(L) 11.2 - 15.7 gm/dL [facility] Blood specimen (specimen) 04/17/2013 11:13 AM EDT 04/17/2013 11:27 AM EDT Narrative Resulting Agency Comment Spec In Lab Freddy Mejias MD HEMATOLOGY ORDERABLE S Performing Organization Address [facility] de Phone Number [facility] * POCT Glucose (04/17/2013 7:37 AM EDT) Glucose, POC 95 60 - 199 mg/dL [facility] Comment: Supplemental ranges: <110 mg/dL before meals <200 mg/dL all other times of the day Blood specimen (specimen) 04/17/2013 7:37 AM EDT 04/17/2013 7:37 AM EDT Freddy Mejias MD POINT OF CARE TEST O RDERABLES Performing Organization Address [facility]/ZIP Co de Phone Number [facility]IE[facility] * EKG 12 Lead (04/17/2013 7:21 AM EDT) Ventricular rate 49 BPM MUSE SYSTEM Atrial Rate 49 BPM MUSE SYSTEM P-R Interval 150 ms MUSE SYSTEM QRS Duration 88 ms MUSE SYSTEM Q-T Interval 460 ms MUSE SYSTEM QTC Calculated (Bezet) 415 ms MUSE SYSTEM Calculated P [place] 41 degrees MUSE SYSTEM Calculated R [place] 63 degrees MUSE SYSTEM Calculated T [place] 139 degrees MUSE SYSTEM INTERPRETATION Marked sinus [...] Reed MD ECG ORDERABLES Performing Organization Address [facility] de Phone Number MUSE SYSTEM * (ABNORMAL) Differential, Automated (04/17/2013 3:51 AM EDT) Neutrophil % 75.0(H) 34.0 - 71.0 % [...] intervals supplied above were not validated at [facility]. Results from pediatric patients [...] Platelet Volume 10.6 9.0 - 12.0 fL [facility] Blood specimen (specimen) 04/17/2013 3:51 AM EDT 04/17/2013 5:10 AM EDT Narrative Resulting Agency Comment Spec In Lab Tavon Reed MD HEMATOLOGY ORDERABLE S Performing Organization Address [facility] de Phone Number [facility] * POCT Glucose (04/16/2013 8:26 PM EDT) Glucose, POC 130 60 - 199 mg/dL [facility] Comment: Supplemental ranges: <110 mg/dL before meals <200 mg/dL all other times of the day Blood specimen (specimen) 04/16/2013 8:26 PM EDT 04/16/2013 8:26 PM EDT Freddy Mejias MD POINT OF CARE TEST O RDERABLES Performing Organization Address [facility] de Phone Number [facility] * POCT Glucose (04/16/2013 4:35 PM EDT) Glucose, POC 101 60 - 199 mg/dL [facility] Comment: Supplemental ranges: <110 mg/dL before meals <200 mg/dL all other times of the day Blood specimen (specimen) 04/16/2013 4:35 PM EDT 04/16/2013 4:35 PM EDT Freddy Mejias MD POINT OF CARE TEST O RDERABLES Performing Organization Address [facility] de Phone Number [facility] * EKG 12 Lead (04/16/2013 1:16 PM EDT) Ventricular rate 55 BPM MUSE SYSTEM Atrial Rate 55 BPM MUSE SYSTEM QRS Duration 76 ms MUSE SYSTEM Q-T Interval 458 ms MUSE SYSTEM QTC Calculated (Bezet) 438 ms MUSE SYSTEM Calculated P [place] 91 degrees MUSE SYSTEM Calculated R [place] 61 degrees MUSE SYSTEM Calculated T [place] 96 degrees MUSE SYSTEM INTERPRETATION Sinus bradycardia ST & T wave abnormality, consider anterolateral ischemia Abnormal ECG When compared with ECG of 15-APR-2013 12:49, T wave inversion less evident in Lateral leads Confirmed by MD WILBER, SERGO ([id number]) on 04/17/2013 9:58:29 PM MUSE SYSTEM 04/16/2013 1:16 PM EDT 04/17/2013 9:58 PM EDT Sergo Goins MD ECG ORDERABLES Performing Organization Address City/[facility]/ZIP Co de Phone Number MUSE SYSTEM * Cardiac Enzymes (04/16/2013 12:00 PM EDT) Pathologist [facility] Troponin-T <0.03 <=0.03 ng/mL [facility] Comment: 0.03 ng/mL: Represents the 99th percentile upper reference limit for normals. >0.03 ng/mL: Elevated cardiac troponin T level indicative of myocardial damage. Diagnosis of acute, evolving or recent OK requires a typical rise and gradual fall [...] consensus document of the Joint Society of Cardiology/[place] College of Cardiology Committee for the redefinition of myocardial infarction. Journal of the [place] College of Cardiology 2000; 36: 959-969] Creatine Kinase 39 0 - 160 unit/L [facility] Blood specimen (specimen) 04/16/2013 12:00 PM EDT 04/16/2013 12:05 PM EDT Narrative Resulting Agency Comment Spec In Lab Freddy Mejias MD CHEMISTRY ORDERABLES Performing Organization Address City/[facility]/ZIP Co de Phone Number [facility] BoatSetter * Echocardiogram Transthoracic(Leb) (04/16/2013 10:11 AM EDT) Pathologist [facility] EF 60 HEARTLAB SYSTEM Anatomical Region Laterality Modality Other 04/16/2013 Narrative 04/16/2013 10:37 AM EDT Procedure: ? Transthoracic Echocardiogram Patient: ? CARBINO JEANNIE L ?(Age): 1960(52) Med Rec#: ?[id number] ? Sex: ?F ? Site Loc: ?[facility] ? Ht / Wt: ??163(cm)/115(kg) Pt. Loc: ? Adult Floor ?BSA: ?2.28 Study Date: ?04/16/2013 ? Pt. Type: Inpatient Tape: ? Referring: Tavon Reed Sheet Metal Fabricator: Dereck Diaz Diagnosis:CPT Code(s): ??Echo Full (45673), ??Spectral Doppler (19881), Color Doppler (04048), ??Optison (36687WW), ??Spectral Doppler (42259), Color Doppler (71476), ??Definity (54078IN), ??Echo Full (60755), Indication(s): ??Angina Rhythm: HR ?BP ?134/69 ?? [...] ? Mid-Inferior ?Normal ? Mid-Inferoseptal ?Normal ? [place]-Septal ? Normal ? [place]-Anterior ? Normal ? [place]-Lateral ?Normal ? [place]-Inferior ? Normal ? [place]-Tip ?Normal ? Chambers ?Value ?Units (Range) ? [...] 04/16/2013 10:36:51 Images reviewed and interpretation verified [facility] Cardiac Ultrasound Laboratory Procedure Note Chalino Gomez MD - 04/16/2013 Procedure: Transthoracic Echocardiogram Patient: APOLINAR SHAY(Age): 1960(52) Med Rec#: [id number] Sex: F Site Loc: [facility] Ht / Wt: 163(cm)/115(kg) Pt. Loc: Adult Floor BSA: 2.28 Study Date: 04/16/2013 Pt. Type: Inpatient Tape: Referring: Tavon Reed Sheet Metal Fabricator: Dereck Diaz Diagnosis:CPT Code(s): Echo Full (05030), Spectral Doppler (64959), Color Doppler (28722), Optison (10972DF), Spectral Doppler (94629), Color Doppler (51051), Definity (00536XL), Echo Full (99908), Indication(s): Angina Rhythm: HR BP 134/69 SUMMARY: [...] Normal Mid-Posterolateral Normal Mid-Inferior Normal Mid-Inferoseptal Normal [place]-Septal Normal [place]-Anterior Normal [place]-Lateral Normal [place]-Inferior Normal [place]-Tip Normal Chambers Value Units (Range) IVSd 2D [...] 04/16/2013 10:36:51 Images reviewed and interpretation verified [facility] Cardiac Ultrasound Laboratory Tavon Reed MD ECHO ORDERABLES * POCT Glucose (04/16/2013 7:42 AM EDT) Glucose, POC 103 60 - 199 mg/dL [facility] Comment: Supplemental ranges: <110 mg/dL before meals <200 mg/dL all other times of the day Blood specimen (specimen) 04/16/2013 7:42 AM EDT 04/16/2013 7:42 AM EDT Freddy Mejias MD POINT OF CARE TEST O RDERABLES [facility] * (ABNORMAL) Differential, Automated (04/16/2013 4:07 AM EDT) Neutrophil % 51.8 34.0 - 71.0 % [...] EDT Tavon Reed MD HEMATOLOGY ORDERABLE S CERKELSEY MONTANOIUM * (ABNORMAL) Basic Metabolic Panel (non-fasting) (04/16/2013 4:07 AM EDT) Glucose 97 60 - 199 mg/dL [facility] Comment:Diabetes: >=200 mg/d L plus symptoms Blood Urea Nitrogen 12 8 - 18 mg/dL [facility]ENNI[facility] Creatinine 0.64(L) 0.70 - 1.20 mg/dL [facility] Comment: Please note that the pediatric reference intervals supplied above were not validated at [facility]. Results from pediatric patients [...] MD HEMATOLOGY ORDERABLE S Performing Organization Address [facility] de Phone Number [facility] * (ABNORMAL) APTT (04/16/2013 4:07 AM EDT) Partial Thromboplastin Time 116(H) 25 - 35 sec [facility] Comment: Recommended therapeutic PTT range for full dose unfractionated heparin is 80-114 seconds. Blood specimen (specimen) 04/16/2013 4:07 AM EDT 04/16/2013 4:18 AM EDT Narrative Resulting Agency Comment Spec In Lab Freddy Mejias MD HEMATOLOGY ORDERABLE S Performing Organization Address [facility] de Phone Number [facility] * Prothrombin Time (04/16/2013 4:07 AM EDT) Prothrombin Time 13.2 12.0 - 15.0 sec [facility]ERN[facility] MILLENNIUM Comment: [facility] Transfusion Committee Guidelines: INR less than 2.0, PTT less than OR equal to 43.5 seconds, or Fibrinogen greater than or equal to 100 mg/dl indicate adequate procoagulant activity for hemostasis in patients without underlying bleeding disorders. International Normalization Ratio 1.0 0.9 - 1.1 [facility] Blood specimen (specimen) 04/16/2013 4:07 AM EDT 04/16/2013 4:18 AM EDT Narrative Resulting Agency Comment Spec In Lab Freddy Mejias MD HEMATOLOGY ORDERABLE S Performing Organization Address [facility] de Phone Number [facility] * (ABNORMAL) APTT (04/15/2013 10:00 PM EDT) Partial Thromboplastin Time 111(H) 25 - 35 sec [facility] Comment: Recommended therapeutic PTT range for full dose unfractionated heparin is 80-114 seconds. Blood specimen (specimen) 04/15/2013 10:00 PM EDT 04/15/2013 11:27 PM EDT Narrative Resulting Agency Comment Spec In Lab Freddy Mejias MD HEMATOLOGY ORDERABLE S Performing Organization Address [facility] de Phone Number [facility] * POCT Glucose (04/15/2013 8:50 PM EDT) Glucose, POC 127 60 - 199 mg/dL [facility] Comment: Supplemental ranges: <110 mg/dL before meals <200 mg/dL all other times of the day Blood specimen (specimen) 04/15/2013 8:50 PM EDT 04/15/2013 8:50 PM EDT Freddy Mejias MD POINT OF CARE TEST O RDERABLES Performing Organization Address [facility] Phone Number [facility] * (ABNORMAL) APTT (04/15/2013 5:00 PM EDT) Partial Thromboplastin Time 108(H) 25 - 35 sec [facility] Comment: Recommended therapeutic PTT range for full dose unfractionated heparin is 80-114 seconds. Blood specimen (specimen) 04/15/2013 5:00 PM EDT 04/15/2013 11:16 PM EDT Narrative Resulting Agency Comment Spec In Lab Freddy Mejias MD HEMATOLOGY ORDERABLE S Performing Organization Address [facility] Phone Number [facility] * POCT Glucose (04/15/2013 3:54 PM EDT) Glucose, POC 133 60 - 199 mg/dL [facility] Comment: Supplemental ranges: <110 mg/dL before meals <200 mg/dL all other times of the day Blood specimen (specimen) 04/15/2013 3:54 PM EDT 04/15/2013 3:54 PM EDT Freddy Mejias MD POINT OF CARE TEST O RDERABLES Performing Organization Address [facility] de Phone Number [facility] * EKG 12 Lead (04/15/2013 12:49 PM EDT) Ventricular rate 43 BPM MUSE SYSTEM Atrial Rate 43 BPM MUSE SYSTEM P-R Interval 156 ms MUSE SYSTEM QRS Duration 84 ms MUSE SYSTEM Q-T Interval 508 ms MUSE SYSTEM QTC Calculated (Bezet) 429 ms MUSE SYSTEM Calculated P [place] 42 degrees MUSE SYSTEM Calculated R [place] 36 degrees MUSE SYSTEM Calculated T [place] 146 degrees MUSE SYSTEM INTERPRETATION Marked sinus [...] * POCT Glucose (04/15/2013 11:27 AM EDT) [facility] Glucose, POC 99 60 - 199 mg/dL [facility] Comment: Supplemental ranges: <110 mg/dL before meals <200 mg/dL all other times of the day Blood specimen (specimen) 04/15/2013 11:27 AM EDT 04/15/2013 11:27 AM EDT Freddy Mejias MD POINT OF CARE TEST O RDERABLES Performing Organization Address City/[facility]/ZIP Co de Phone Number [facility] * Cardiac Enzymes (04/15/2013 10:28 AM EDT) [facility] Troponin-T <0.03 <=0.03 ng/mL [facility] Comment: 0.03 ng/mL: Represents the 99th percentile upper reference limit for normals. >0.03 ng/mL: Elevated cardiac troponin T level indicative of myocardial damage. Diagnosis of acute, evolving or recent OK requires a typical rise and gradual fall [...] consensus document of the Joint Society of Cardiology/[place] College of Cardiology Committee for the redefinition of myocardial infarction. Journal of the [place] College of Cardiology 2000; 36: 959-969] Creatine Kinase 47 0 - 160 unit/L [facility] Blood specimen (specimen) 04/15/2013 10:28 AM EDT 04/15/2013 10:37 AM EDT Narrative Resulting Agency Comment Spec In Lab Tavon Reed MD CHEMISTRY ORDERABLES Performing Organization Address City/[facility]/ZIP Co de Phone Number [facility] * (ABNORMAL) APTT (04/15/2013 10:28 AM EDT) Partial Thromboplastin Time 66(H) 25 - 35 sec [facility] CORTEZJUANAIUM Comment: Recommended therapeutic PTT range for full dose unfractionated heparin is 80-114 seconds. Blood specimen (specimen) 04/15/2013 10:28 AM EDT 04/15/2013 10:37 AM EDT Narrative Resulting Agency Comment Spec In Lab Freddy Mejias MD HEMATOLOGY ORDERABLE S Performing Organization Address [facility] Co de Phone Number [facility] * XR chest routine PA & lateral [...] * POCT Glucose (04/15/2013 7:59 AM EDT) Glucose, POC 108 60 - 199 mg/dL [facility] [employer] Comment: Supplemental ranges: <110 mg/dL before meals <200 mg/dL all other times of the day Blood specimen (specimen) 04/15/2013 7:59 AM EDT 04/15/2013 7:59 AM EDT Freddy Mejias MD POINT OF CARE TEST O RDERABLES Performing Organization Address [facility] Co de Phone Number [facility]gie[facility] INSTITUTEKOEZY * EKG 12 Lead (04/15/2013 7:17 AM EDT) Ventricular rate 57 BPM MUSE SYSTEM Atrial Rate 57 BPM MUSE SYSTEM P-R Interval 148 ms MUSE SYSTEM QRS Duration 82 ms MUSE SYSTEM Q-T Interval 474 ms MUSE SYSTEM QTC Calculated (Bezet) 461 ms MUSE SYSTEM Calculated P [place] 41 degrees MUSE SYSTEM Calculated R [place] 54 degrees MUSE SYSTEM Calculated T [place] 123 degrees MUSE SYSTEM INTERPRETATION Sinus bradycardia [...] Goins MD ECG ORDERABLES Performing Organization Address [facility] Co [...] 4:54 AM EDT) Troponin-T <0.03 <=0.03 ng/mL [facility] Comment: 0.03 ng/mL: Represents the 99th percentile upper reference limit for normals. >0.03 ng/mL: Elevated cardiac troponin T level indicative of myocardial damage. Diagnosis of acute, evolving or recent OK requires a typical rise and gradual fall [...] consensus document of the Joint Society of Cardiology/[place] [employer] of Cardiology Committee for the redefinition of myocardial infarction. Journal of the [place] [employer]iology 2000; 36: 959-969] Creatine Kinase 36 0 - 160 unit/L [facility] Blood specimen (specimen) 04/15/2013 4:54 AM EDT 04/15/2013 5:33 AM EDT Narrative Resulting Agency Comment Spec In Lab Tavon Reed MD CHEMISTRY ORDERABLES [facility] * Hemoglobin A1c (04/15/2013 4:54 AM EDT) Hemoglobin A1c 6.1 4.3 - 6.1 % [facility] Comment: The [place] Diabetes Association (ADA) has stated that HbA1c [...] 2013:36;suppl 1:S11-S66. Estimated Average Glucose 128 mg/dL [facility] Comment: eAG equivalents for HbA1c percentages: HbA1c(%) [...] into estimated average glucose values. ??Diabetes Care 2008:31(8):1505-7915. Blood specimen (specimen) 04/15/2013 4:54 AM EDT 04/15/2013 5:33 AM EDT Narrative Resulting Agency Comment Spec In Lab Tavon Reed MD CHEMISTRY ORDERABLES [facility] * (ABNORMAL) Lipid panel (fasting) (04/15/2013 4:54 AM EDT) Cholesterol, Total 159 <=199 mg/dL [facility] Comment: Recommendations of the NCEP Adult Treatment Panel for the following risk cutoff thresholds for the [place] population: Desirable: <200 mg/dL Borderline High: 200-239 mg/dL High: > or = 240 mg/dL Triglyceride 138 <=149 mg/dL [facility] Comment: Reference Range: Normal triglycerides: ??<150 mg/dL Borderline high: ??150-199 mg/dL High: ??200-499 mg/dL Very high: ??>ww=681 mg/dL KIP 2001; 285(19):9166-9877 HDL Cholesterol 30(L) >=40 mg/dL [facility] Comment: Reference range: ??Low HDL: ?? < 40 mg/dL ??Normal: ?40-60 mg/dL ??Desirable: > 60 mg/dL KIP 2001; 285(19):4458-8281 LDL Cholesterol 101(H) <=99 mg/dL [facility] Comment: Reference range: ?? Optimal: ?<100 mg/dL ?? Near Optimal/Above Optimal: ?? 100-129 mg/dL ?? Borderline high: ?130-159 mg/dL ?? High: ? 160-189 mg/dL ?? Very high: ?>oq=727 mg/dL KIP 2001: 285(19):9230-2708 Cholesterol/HDL Ratio 5.3 ratio [facility] Comment: A Cholesterol to HDL ratio below 4:1 is desirable. ??Studies suggest that increased CAD risk occurs at ratios above 5 for females and above 6 for men. ? [place] [employer] Association ??(http://www.americanheart.org) ? [facility], [...] Lab Tavon Reed MD CHEMISTRY ORDERABLES [facility] * TSH (04/15/2013 4:54 AM EDT) Thyroid Stimulating Hormone 1.73 0.27 - 4.20 mcIU/mL [facility] Blood specimen (specimen) 04/15/2013 4:54 AM EDT 04/15/2013 5:33 AM EDT Narrative Resulting Agency Comment Spec In Lab Tavon Reed MD CHEMISTRY ORDERABLES [facility] * Phosphorus (04/15/2013 4:54 AM EDT) Phosphorus 3.5 2.5 - 4.5 mg/dL [facility] Blood specimen (specimen) 04/15/2013 4:54 AM EDT 04/15/2013 5:33 AM EDT Narrative Resulting Agency Comment Spec In Lab Tavon Reed MD CHEMISTRY ORDERABLES Performing Organization Address City/[facility]/ZIP Co de Phone Number [facility] * Magnesium (04/15/2013 4:54 AM EDT) Magnesium 0.84 0.69 - 1.07 mmol/L [facility] Blood specimen (specimen) 04/15/2013 4:54 AM EDT 04/15/2013 5:33 AM EDT Narrative Resulting Agency Comment Spec In Lab Tavon Reed MD CHEMISTRY ORDERABLES [facility] * Calcium (04/15/2013 4:54 AM EDT) Calcium 8.9 8.5 - 10.5 mg/dL [facility] Blood specimen (specimen) 04/15/2013 4:54 AM EDT 04/15/2013 5:33 AM EDT Narrative Resulting Agency Comment Spec In Lab Tavon Reed MD CHEMISTRY ORDERABLES Performing Organization Address [facility] de Phone Number [facility] * (ABNORMAL) APTT (04/15/2013 4:53 AM EDT) Partial Thromboplastin Time 62(H) 25 - 35 sec [facility] Comment: Recommended therapeutic PTT range for full dose unfractionated heparin is 80-114 seconds. Blood specimen (specimen) 04/15/2013 4:53 AM EDT 04/15/2013 5:33 AM EDT Narrative Resulting Agency Comment Spec In Lab Tavon Reed MD HEMATOLOGY ORDERABLE S Performing Organization Address [facility] Phone Number [facility] * Prothrombin Time (04/15/2013 4:53 AM EDT) Prothrombin Time 12.9 12.0 - 15.0 sec [facility] Comment: [facility] Transfusion Committee Guidelines: INR less than 2.0, PTT less than OR equal to 43.5 seconds, or Fibrinogen greater than or equal to 100 mg/dl indicate adequate procoagulant activity for hemostasis in patients without underlying bleeding disorders. International Normalization Ratio 0.9 0.9 - 1.1 [facility] Blood specimen (specimen) 04/15/2013 4:53 AM EDT 04/15/2013 5:33 AM EDT Narrative Resulting Agency Comment Spec In Lab Tavon Reed MD HEMATOLOGY ORDERABLE S Performing Organization Address [facility] Co de Phone Number [facility] * Prothrombin Time (04/15/2013 12:45 AM EDT) Prothrombin Time 13.7 12.0 - 15.0 sec [facility] Comment: [facility] Transfusion Committee Guidelines: INR less than 2.0, [...] MD HEMATOLOGY ORDERABLE S Performing Organization Address [facility] Phone Number [facility] * APTT (04/14/2013 11:55 PM EDT) Partial Thromboplastin Time 28 25 - 35 sec [facility] Comment: Recommended therapeutic PTT range for full dose unfractionated heparin is 80-114 seconds. Blood specimen (specimen) 04/14/2013 11:55 PM EDT 04/15/2013 12:07 AM EDT Narrative Resulting Agency Comment Spec In Lab Tavon Reed MD HEMATOLOGY ORDERABLE S Performing Organization Address [facility] Phone Number [facility] * EKG 12 Lead (04/14/2013 10:59 PM EDT) Ventricular rate 65 BPM MUSE SYSTEM Atrial Rate 65 BPM MUSE SYSTEM P-R Interval 134 ms MUSE SYSTEM QRS Duration 86 ms MUSE SYSTEM Q-T Interval 424 ms MUSE SYSTEM QTC Calculated (Bezet) 440 ms MUSE SYSTEM Calculated P [place] 26 degrees MUSE SYSTEM Calculated R [place] 17 degrees MUSE SYSTEM Calculated T [place] 36 degrees MUSE SYSTEM INTERPRETATION Normal sinus rhythm with sinus arrhythmia T wave abnormality, consider anterior ischemia Abnormal ECG When compared with ECG of 14-APR-2013 22:57, (unconfirmed) No significant change was found Confirmed by MD NGHIA, JENNY ([id number]) on 04/16/2013 11:34:39 AM MUSE SYSTEM 04/14/2013 10:5 9 PM EDT 04/16/2013 11:34 AM EDT Tavon Reed MD ECG ORDERABLES Performing Organization Address [facility] Phone Number [facility] * EKG 12 Lead (04/14/2013 10:57 PM EDT) Ventricular rate 56 BPM MUSE SYSTEM Atrial Rate 56 BPM MUSE SYSTEM P-R Interval 144 ms MUSE SYSTEM QRS Duration 84 ms MUSE SYSTEM Q-T Interval 430 ms MUSE SYSTEM QTC Calculated (Bezet) 414 ms MUSE SYSTEM Calculated P [place] 25 degrees MUSE SYSTEM Calculated R [place] 22 degrees MUSE SYSTEM Calculated T [place] 41 degrees MUSE SYSTEM INTERPRETATION Sinus bradycardia with Sinus arrhythmia T wave abnormality, consider anterolateral ischemia Abnormal ECG Confirmed by MD AGRAWAL MARK ([id number]) on 04/16/2013 11:34:11 AM MUSE SYSTEM 04/14/2013 10:5 7 PM EDT 04/16/2013 11:34 AM EDT Tavon Reed MD ECG ORDERABLES Performing Organization Address [facility] de Phone Number [facility] * EKG 12 Lead (04/14/2013 10:56 PM EDT) Ventricular rate 53 BPM MUSE SYSTEM Atrial Rate 53 BPM MUSE SYSTEM P-R Interval 142 ms MUSE SYSTEM QRS Duration 74 ms MUSE SYSTEM Q-T Interval 420 ms MUSE SYSTEM QTC Calculated (Bezet) 394 ms MUSE SYSTEM Calculated P [place] 32 degrees MUSE SYSTEM Calculated R [place] 22 degrees MUSE SYSTEM Calculated T [place] 39 degrees MUSE SYSTEM INTERPRETATION Sinus bradycardia Sinus arrhythmia T wave abnormality, consider anterolateral ischemia Abnormal ECG Confirmed by MD AGRAWAL MARK ([id number]) on 04/16/2013 11:33:23 AM MUSE SYSTEM 04/14/2013 10:5 6 PM EDT 04/16/2013 11:33 AM EDT Freddy Mejias MD ECG ORDERABLES Performing Organization Address City/[facility] Co de Phone Number MUSE [facility] * POCT urine (04/14/2013 10:41 PM EDT) POC Urine HCG Negative Negative - Negative POC Control Internal Controls Acceptable Tavon Reed MD POINT OF CARE TEST O RDERABLES * POCT urine dipstick (04/14/2013 10:41 PM EDT) POC Sp Ramsey 1.010 1.002 - 1.030 POC pH, UA [...] (ABNORMAL) Differential, Automated (04/14/2013 9:10 PM EDT) Neutrophil % 59.6 34.0 - 71.0 % [...] MD HEMATOLOGY ORDERABLE S [facility] * Gold Tube HOLD (04/14/2013 9:10 PM EDT) Gold Hold Sample in lab. [facility] Blood specimen (specimen) 04/14/2013 9:10 PM EDT 04/14/2013 9:15 PM EDT Tavon Reed MD CHEMISTRY ORDERABLES [facility] * Blue Tube HOLD (04/14/2013 9:10 PM EDT) Blue Hold Sample in lab. [facility] Blood specimen (specimen) 04/14/2013 9:10 PM EDT 04/14/2013 9:15 PM EDT Tavon Reed MD HEMATOLOGY ORDERABLE S Performing Organization Address [facility]/ZIP Co de Phone Number [facility] * [...] of variation 15.4(H) 10.9 - 14.4 % [facility] Mean Platelet Volume 10.3 9.0 - 12.0 fL [facility] Blood specimen (specimen) 04/14/2013 9:10 PM EDT 04/14/2013 9:15 PM EDT Narrative Resulting Agency Comment Spec In Lab Tavon Reed MD HEMATOLOGY ORDERABLE S Performing Organization Address [facility] de Phone Number [facility] * Cardiac Enzymes (04/14/2013 9:10 PM EDT) Troponin-T <0.03 <=0.03 ng/mL [facility] Comment: 0.03 ng/mL: Represents the 99th percentile upper reference limit for normals. >0.03 ng/mL: Elevated cardiac troponin T level indicative of myocardial damage. Diagnosis of acute, evolving or recent [place] requires a typical rise and gradual fall [...] consensus document of the Joint Society of Cardiology/[place] College of Cardiology Committee for the redefinition of myocardial infarction. Journal of the [place] College of Cardiology 2000; 36: 959-969] Creatine Kinase 49 0 - 160 unit/L [facility] Blood specimen (specimen) 04/14/2013 9:10 PM EDT 04/14/2013 9:14 PM EDT Narrative Resulting Agency Comment Spec In Lab Tavon Reed MD CHEMISTRY ORDERABLES Performing Organization Address [facility] de Phone Number [facility] * Glucose, random (04/14/2013 9:10 PM EDT) Glucose 114 60 - 199 mg/dL [facility] Comment:Diabetes: >=200 mg/d L plus symptoms Blood specimen (specimen) 04/14/2013 9:10 PM EDT 04/14/2013 9:14 PM EDT Narrative Resulting Agency Comment Spec In Lab Tavon Reed MD CHEMISTRY ORDERABLES Performing Organization Address [facility] Co de Phone Number [facility] * Creatinine (04/14/2013 9:10 PM EDT) Creatinine 0.78 0.70 - 1.20 mg/dL [facility] Comment: Please note that the pediatric reference intervals supplied above were not validated at [facility]. Results from pediatric patients should be interpreted in conjunction to the patient's age, height and muscle mass. Est Glomerular Filtration Rate >60 >=60 [facility] Comment: This estimated GFR (eGFR) value [...] Reed MD CHEMISTRY ORDERABLES Performing Organization Address [facility] Co de Phone Number [facility] * BUN (04/14/2013 9:10 PM EDT) Blood Urea Nitrogen 16 8 - 18 mg/dL [facility] Blood specimen (specimen) 04/14/2013 9:10 PM EDT 04/14/2013 9:14 PM EDT Narrative Resulting Agency Comment Spec In Lab Tavon Reed MD CHEMISTRY ORDERABLES Performing Organization Address [facility] de Phone Number [facility] * Electrolytes [...] Reed MD CHEMISTRY ORDERABLES Performing Organization Address [facility] de Phone Number [facility] * EKG 12 Lead (04/14/2013 8:57 PM EDT) Ventricular rate 67 BPM MUSE SYSTEM Atrial Rate 67 BPM MUSE SYSTEM P-R Interval 140 ms MUSE SYSTEM QRS Duration 72 ms MUSE SYSTEM Q-T Interval 372 ms MUSE SYSTEM QTC Calculated (Bezet) 393 ms MUSE SYSTEM Calculated P [place] 44 degrees MUSE SYSTEM Calculated R [place] 36 degrees MUSE SYSTEM Calculated T [place] 48 degrees MUSE SYSTEM INTERPRETATION Sinus rhythm with Premature atrial complexes ST & T wave abnormality, consider anterior ischemia Abnormal ECG When compared with ECG of 09-APR-2013 14:24, Premature atrial complexes are now Present Confirmed by MD NGHIA, JENNY ([id number]) on 04/16/2013 11:04:11 AM MUSE SYSTEM 04/14/2013 8:57 PM EDT 04/16/2013 11:04 AM EDT Freddy Mejias MD ECG ORDERABLES Performing Organization Address [facility] Co de Phone Number MUSE SYSTEM documented in this encounter Visit Diagnoses Not on filedocumented in this encounter Administered Medications Inactive Administered Medications - up to 3 most recent administrations Medication Order MAR Action Action Date Dose Rate Site bivalirudin (ANGIOMAX) 250 mg in sodium chloride 0.9% 50 mL infusion (CREW BOAT OPERATOR) CONTINUOUS PRN, Starting on Tue04/16/13 at 1054, [...] Dejah Ladd RN)1600 (Given - Provider: Juliann Crystal, FABIANA) 1617 (Given - Provider: Rocio Garrison RN) [...] 1000 (Given - Provider: Rocio Garrison RN) 09 (Given - Provider: Margarita Sharma RN) diaZEPam [...] 1031 (Given - Provider: Juliann Crystal RN) 204 (Given - Provider: Katerine Urban RN) levothyroxine [...] for SBP<100, Routine 1617 (Given - Provider: oRcio Garrison, FABIANA) 0925 (Given - Provider: Margarita Sharma RN) [...] Discontinued, Routine 1031 (Given - Provider: Juliann Crystal, FABIANA)1324 (Given - Provider: Juliann Crystal RN)1601 (Given - Provider: Juliann Crystal RN)2100 (Given by Other - Provider: Tegan August RN) 1000 (Given - Provider: Rocio Garrison, RN)1300 (Not Given - Provider: Rocio Garrison RN - Reason: Transfer to a Procedural area)1618 (Given - Provider: Rocio Garrison RN)2100 (Given - Provider: Katerine Urban RN) 0925 (Given - Provider: Margarita Sharma, FABIANA)1304 (Given - Provider: Margarita Sharma, FABIANA) metoprolol (LOPRESSOR) tablet 12.5 mg (CANCELED) 12.5 [...] Garrison RN)2228 (Given - Provider: Katerine Urban, FABIANA) 0555 (Given - Provider: Katerine Urban, FABIANA)1432 [...] by Other - Provider: Tegan August, FABIANA) 2223 (Given - Provider: Katerine Urban, FABIANA) sodium chloride 0.9 % flush 5 mL (CANCELED) 5 mL, Intravenous, EVERY 12 HOURS, First dose on 04/15/13 at 0145, Until Discontinued 0145 (Given - Provider: Dejah Ladd RN)1317 (Given - Provider: Juliann Crystal RN) 0145 (Given - Provider: Tegan August RN)1345 (Given - Provider: Rocio Garrison RN) 0145 (Given - Provider: Katerine Urban, FABIANA)1300 (Given - Provider: Margarita Sharma RN) sodium chloride 0.9 % flush 5 mL (CANCELED) 5 mL, Intravenous, EVERY 12 HOURS, First dose on 04/16/13 at 0945, Until Discontinued, Cath (Day of Procedure), Routine 1000 (Given - Provider: Rocio Garrison, FABIANA)2145 (Given - Provider: Katerine Urban RN) 0932 (Given - Provider: Margarita Sharma RN) traZODone (DESYREL) tablet 50 mg (CANCELED) 50 mg, Oral, NIGHTLY, First dose on 04/15/13 at 0145, Until Discontinued, Routine 0241 (Given - Provider: Dejah Ladd RN)2100 (Given by Other - Provider: Tegan August RN) 2100 (Given - Provider: Katerine Urban RN) [...] than 145 sec X 2 - call overnight houseperson See Bolus dosing guidance for aPTT values [...] Provider: Jazmin Esparza RN)1148 (Stopped - Provider: Jamzin Esparza RN)1250 (Restarted - Provider: Cristobal Cuellar RN)1333 (New Bag - Provider: Cristobal Cuellar RN) [...] in sodium chloride 0.9% 50 mL infusion (CREW BOAT OPERATOR) (CANCELED) CONTINUOUS PRN, Starting on Tue04/16/13 at 1054, Until Tue04/16/13 at 1203, Cath (Intra-Procedure), Routine 1054 (New Bag - Provider: Deloris Guerin RN)1149 (New Bag - Provider: Jazmin Espazra RN)1154 (Stopped - Provider: Jazmin Esparza RN) [...] Intravenous, BOLUS PER HEPARIN PROTOCOL, Starting on Tue04/14/13 at 2346, Until Tue04/16/13 at 1854, Per [...] > 160mmHg. 1321 (Given - Provider: Cristobal Cuellar, FABIANA) hydroCODone-acetaminophen (VICODIN) 5-500 mg per tablet [...] Crystal RN) 2047 (Given - Provider: Katerine Urban, FABIANA) 0937 (Given - Provider: Margarita Sharma RN)1400 [...] Unit), Routine 1345 (Given - Provider: Cristobal Cuellar RN)1451 (Given - Provider: Cristobal Culelar RN) nitroGLYcerin (NITROSTAT) SL tablet 0.4 mg [...] RN) 1000 (Given - Provider: Rocio Garrison RN)1820 (Given - Provider: Rocio Garrison RN) 1148 (Given - Provider: Margarita Sharma [...] Patch documented in this encounter Care Teams Lean Facilitator Relationship Specialty Start Date End Date Adriana Perla APRN [address] [place] [address] PCP - General 06/16/10 06/27/18 documented as of this encounter
--- OUTSIDE RECORDS SUMMARY | 2024-08-01 18:40 | XMS_ITS | Encounter Summary ---
[place] [address] Care Team Providers Care Cold Water Machine Operator Name Role Phone Aman Lawrence APRN Primary Care Provider [phone] Encounter Details Date Type Department Care Team (Late st Contact Info) Description 05/14/2013 Notes [place] [address] [facility] [place] [address] Social History Tobacco Use Types Packs/Day Years [...] complex vitamins (B COMPLEX-VITAMIN B12) tablet ??? ebgxzufauoaj-ptak-xvkucyjq (COMPLETE MULTIVITAMIN) Tab tablet 1 Tablet(s), PO, Once daily ??? calcium citrate-vitamin D (CITRACAL+D) 315-200 mg-unit per tablet 2 Tablet(s), PO, Twice daily ??? 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
--- OUTSIDE RECORDS SUMMARY | 2024-08-01 18:40 | XMS_ITS | Encounter Summary ---
[place] [address] Care Team Providers Care Community Health Promoter Name Role Phone Aman Lawrence APRN Primary Care Provider [phone] Encounter Details Date Type Department Care Team (Latest Contact Info) Description 05/10/2013 8:57 AM EDT - 05/10/2013 11:59 PM EDT Hospital Encounter Non-[place] [id number] CARDIAC REHAB, PROG CRP Cardiac Rehab Prog, [...] vitamins (B COMPLEX-VITAMIN B12) tablet 09/23/2010 11/19/2016 eefmuhsdloyi-sdsn-okyin als (COMPLETE MULTIVITAMIN) Tab tablet 1 Tablet(s), PO, Once daily 09/23/2010 11/19/2016 calcium citrate-vitamin D (CITRACAL+D) 315-200 mg-unit per tablet 2 Tablet(s), PO, Twice daily 09/23/2010 11/19/2016 ergocalciferol (VITAMIN D) 50,000 unit capsule [id number], PO, TWICE a week 09/23/2010 11/19/2016 documented [...] and is under the direction of the certified court/medical interpreter,Dr Yvon Gomez. The program includes telemetry monitored exercise sessions with progressive increases in exercise level as appropriate. Educational classes are also provided regarding medications, low fat/chol diet instruction, weight loss, exercise guidelines, stress management and risk factor modification. The patient's progress will be reviewed with the certified court/medical interpreter every 2-3 weeks during the courseof the program and with the PCP and/or DYE MACHINE TENDER intermittently. For details of individual class sessions, [...] 239.4 Lbs. I Body Fat %: 44.8 [place] Body Fat: 22-31 % BMI: 40.9 Waist [...] Coronary atherosclerosis of unspecified type of vessel, nome or graft documented in this encounter Care Teams Community Health Promoter Relationship Specialty Start Date End Date Aman Lawrence APRN [address] [place] [address] PCP - General 06/16/10 06/27/18 documented as of this encounter
--- OUTSIDE RECORDS SUMMARY | 2024-08-01 18:40 | XMS_ITS | Encounter Summary ---
[place] [address] Care Team Providers Care Cargo Station Worker Name Role Phone Aman Lawrence APRN Primary Care Provider +1 -[phone] Reason for Visit * Reason Comments Follow-up Bariatric Surgery Zachary suárez Encounter Details Date Type Department Care Team (Late st Contact Info) Description 07/04/2013 2:30 PM EST [place] [address] Sidra Del Toro APRN S/P gastric bypass (Primary Dx); Hypertension; Type [...] Encarnacion, RD - 07/03/2013 4:36 PM EST [facility] Admin coordinator Rhonda: [phone] Dietitian: [phone] Surgeons/ nurse practitioner: [phone] Nurse line: [phone] Your excess body weight lost: 37.5% Testing: [...] prefer, sign up for free account on www.Fashion Genome Project to log your food- it will count [...] by eating a bigger serving of the ukrainian yogurt. Other breakfast ideas: low fat/fat free [...] of every month from 1-2 PM at [facility] Back on Track group visits are held monthly Internet resources: www.RingCaptcha www.Jibo www.GlucoVista Www.Intra-Cellular Therapies (cat Alonzo) https://www.Fastnote.com/[facility] Books & Magazines: - Recipes [...] of contrast was clearly seen within the quartz valley fundus indicating a leak. The site of the leak was not identified, but it is assumed to be relatively high. Contrast flowed freely through the anastomosis and no retrograde flow was seen in the afferent loop.There is mild dilatation in the region of the Genesis-en-Y anastomosis. never Colonoscopy ? Mammogram - Pap [facility] 11/07/02 DEXA normal Problem list: - Pre-operative Class IV obesity BMI 51.8: improved, S/P gastric bypass - Hypertension: current treatment with lisinopril and metoprolol - GERD: stable when takes famoditine - Type 2 diabetes: no current treatment. A1c in March 2013 was 6.1 - CAD: currently stable A. 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 [...] weight gain. She was advised that her termination clerk weight loss is excellent. She isstable from a bariatric surgery perspective. A staple line breakdown has not been confirmed, since she did not have the upper endoscopy that was ordered at her last visit in 2010. ?? Her case will be discussed at the next team meeting ?? Advised to discuss the timing of her next bone density scan with Primary Radio Maintainer ?? Next BSP visit: 1 year ?? [...] If labwork is done by the primary reproductive healthcare assistant: please send a copy to the Bariatric Surgery Program, General Surgery Clinic, [facility], attention Sidra Del Toro APRN. Plastic Surgery Clinic evaluation for skin redundancy: done no sooner than 18 months post-operatively when weight loss has been stable for a few months. In general, patients with a BMI >30-35 are not considered candidates due to increased risk of complications unless there are compelling health concern Questions regarding [facility] Bariatric Surgery Program patients: please call Jorge Del Toro APRN at [phone] or [phone]. * Meena Encarnacion, RD - 07/03/2013 4:30 [...] cup cooked old fashioned oatmeal, 1/2 cup ukrainian yogurt w fruit, 1/2 cup skim milk, 1/2 toast w ICBINB AM Snack none Lunch 12pm: 1/2 turkey sandwich (1 slice turkey), salad, 1/2 cup veggie soup, sugar free pudding PM Snack 2pm: fruit/whole wheat crackers w hummus or fruit/cucumber or tomato Dinner 5pm: chicken (3oz breast), 2 cups veggies, 1/2 cup peaches, salad w low fat tanzanian HS Snack 7pm: 1/2 cup sf pudding [...] rehab, but finished, so walking inside at [facility] or at [facility] [employer] where she works daily most days for [...] track food using online program, such as [employer] as patient reports she is using a [...] Coronary atherosclerosis of unspecified type of vessel, quartz valley or graft Esophageal reflux documented in this encounter Care Teams Cargo Station Worker Relationship Specialty Start Date End Date Aman Lawrence APRN [address] [place] [address] PCP - General 06/16/10 06/27/18 documented as of this encounter
--- OUTSIDE RECORDS SUMMARY | 2024-08-01 18:41 | XMS_ITS | Encounter Summary ---
Author Organization [facility] [place] [address] Care Team Providers Care Operations Associate Name Role Phone Aman Lawrence APRN Primary Care Provider +1 [phone] Encounter Details Date Type Department Care Team (Late st Contact Info) Description 08/06/2010 2:30 PM EST Office Visit Functional Methodist Program [place] [address] Caroline Hugo DITCH DIGGER [facility] [place] [address] Social History Tobacco Use Types Packs/Day Years Used Date Smoking Tobacco: Never Assessed Sex and Gender Information Value Date Recorded Sex Assigned at Not on file Gender Identity Not on file Sexual Orientation Not on file documented as of this encounter Plan of Treatment Not on file documented as of this encounter Visit Diagnoses Not on filedocumented in this encounter Care Teams Operations Associate Relationship Specialty Start Date End Date Aman Lawrence APRN [address] [place] [address] PCP - General 06/16/10 06/27/18 documented as of this encounter
--- OUTSIDE RECORDS SUMMARY | 2024-08-01 18:41 | XMS_ITS | Encounter Summary ---
Author Organization [facility] [address] Care Team Providers Care Fitting Room Attendant Name Role Phone Aman Lawrence APRN Primary Care Provider +1 -[phone] Encounter Details Date Type Department Care Team (Late st Contact Info) Description 08/14/2010 7:55 AM EST Office Visit Functional Mandaen Program [place] [address] Ananth Sesay, PT Social History Tobacco Use Types Packs/Day Years Used Date Smoking Tobacco: Never Assessed Sex and Gender Information Value Date Recorded Sex Assigned at Not on file Gender Identity Not on file Sexual Orientation Not on file documented as of this encounter Plan of Treatment Not on file documented as of this encounter Visit Diagnoses Not on filedocumented in this encounter Care Teams Fitting Room Attendant Relationship Specialty Start Date End Date Aman Lawrence [place] [address] [place] [address] PCP - General 06/16/10 06/27/18 documented as of this encounter
--- OUTSIDE RECORDS SUMMARY | 2024-08-01 18:41 | XMS_ITS | Encounter Summary ---
Author Organization [facility] [place] [address] Care Team Providers Care Crew Clerk Name Role Phone Aman Lawrence APRN Primary Care Provider +1 -[phone] Encounter Details Date Type Department Care Team (Late st Contact Info) Description 08/03/2010 2:30 PM EST Office Visit Functional Sabianism Program [place] [address] [address]URATION MANAGER [facility] [place] [address] Social History Tobacco Use Types Packs/Day Years Used Date Smoking Tobacco: Never Assessed Sex and Gender Information Value Date Recorded Sex Assigned at Not on file Gender Identity Not on file Sexual Orientation Not on file documented as of this encounter Plan of Treatment Not on file documented as of this encounter Visit Diagnoses Not on filedocumented in this encounter Care Teams Crew Clerk Relationship Specialty Start Date End Date Aman Lawrence APRN [address] [address] PCP - General 06/16/10 06/27/18 documented as of this encounter
--- OUTSIDE RECORDS SUMMARY | 2024-08-01 18:41 | XMS_ITS | Encounter Summary ---
Author Organization [facility] [place] [address] Care Team Providers Care Watchstander Name Role Phone Aman Lawrence APRN Primary Care Provider +1 -[phone] Encounter Details Date Type Department Care Team (Late st Contact Info) Description 08/05/2010 9:00 AM EST Office Visit Functional Restorationist Program [place] [address] Tawnya Allison Social History Tobacco Use Types [...] on filedocumented in this encounter Care Teams Watchstander Relationship Specialty Start Date End [place] [address] PCP - General 06/16/10 06/27/18 documented as of this encounter
--- OUTSIDE RECORDS SUMMARY | 2024-08-01 18:41 | XMS_ITS | Encounter Summary ---
Author Organization [facility] [place] [address] Care Team Providers Care Fire Management Specialist Name Role Phone Aman Lawrence APRN Primary Care Provider +1 -[phone] Encounter Details Date Type Department Care Team (Late st Contact Info) Description 08/07/2010 2:30 PM EST Office Visit Functional Sikh Program [place] [address] Caroline Hugo CHARGE AUTHORIZER [facility] [place] [address] Social History Tobacco Use Types Packs/Day Years Used Date Smoking Tobacco: Never Assessed Sex and Gender Information Value Date Recorded Sex Assigned at Not on file Gender Identity Not on file Sexual Orientation Not on file documented as of this encounter Plan of Treatment Not on file documented as of this encounter Visit Diagnoses Not on filedocumented in this encounter Care Teams Fire Management Specialist Relationship Specialty Start Date End Date Aman Lawrence APR[place] [address] PCP - General 06/16/10 06/27/18 documented as of this encounter
--- OUTSIDE RECORDS SUMMARY | 2024-08-01 18:41 | XMS_ITS | Encounter Summary ---
Author Organization [facility] [place] [address] Care Team Providers Care Food And Beverage Assistant Manager Name Role Phone Aman Lawrence APRN Primary Care Provider +1 [phone] Encounter Details Date Type Department Care Team (Late st Contact Info) Description 08/06/2010 9:00 AM EST Office Visit Functional Uatsdin Program [place] [address] Tawnya Allison Social History Tobacco Use Types [...] filedocumented in this encounter Care Teams Food And Beverage Assistant Manager Relationship Specialty Start Date End [place] [address] PCP - General 06/16/10 06/27/18 documented as of this encounter
--- OUTSIDE RECORDS SUMMARY | 2024-08-01 18:41 | XMS_ITS | Encounter Summary ---
Author Organization [facility] [place] [address] Care Team Providers Care Manager News Name Role Phone Aman Lawrence APRN Primary Care Provider +1 -[phone] Encounter Details Date Type Department Care Team (Late st Contact Info) Description 08/10/2010 9:40 AM EST Follow-Up Functional Taoism Program at [facility] [place] [address] Ana Goins, [facility] [place] [address] Social History Tobacco Use Types Packs/Day Years Used Date Smoking Tobacco: Never Assessed Sex and Gender Information Value Date Recorded Sex Assigned at Not on file Gender Identity Not on file Sexual Orientation Not on file documented as of this encounter Plan of Treatment Not on file documented as of this encounter Visit Diagnoses Not on filedocumented in this encounter Care Teams Manager News Relationship Specialty Start Date End Date Aman Lawrence [place] [address] PCP - General 06/16/10 06/27/18 documented as of this encounter
--- OUTSIDE RECORDS SUMMARY | 2024-08-01 18:41 | XMS_ITS | Encounter Summary ---
Author Organization [facility] [place] [address] Care Team Providers Care Outsole Caser Name Role Phone Aman Lawrence APRN Primary Care Provider +1 [phone] Encounter Details Date Type Department Care Team (Late st Contact Info) Description 08/11/2010 2:30 PM EST Office Visit Functional Episcopalian Program [place] [address] Bong Cabrera MD Social History Tobacco Use Types Packs/Day Years Used Date Smoking Tobacco: Never Assessed Sex and Gender Information Value Date Recorded Sex Assigned at Not on file Gender Identity Not on file Sexual Orientation Not on file documented as of this encounter Plan of Treatment Not on file documented as of this encounter Visit Diagnoses Not on filedocumented in this encounter Care Teams Outsole Caser Relationship Specialty Start Date End [place] [address] PCP - General 06/16/10 06/27/18 documented as of this encounter
--- OUTSIDE RECORDS SUMMARY | 2024-08-01 18:41 | XMS_ITS | Encounter Summary ---
Author Organization [facility] [place] [address] Care Team Providers Care Television Script Writer Name Role Phone Aman Lawrence APRN Primary Care Provider +1 -[phone] Encounter Details Date Type Department Care Team (Late st Contact Info) Description 09/23/2010 9:00 AM EST Office [place] [address] Bong Cabrera MD Discharge Disposition: Home Social History Tobacco Use [...] on filedocumented in this encounter Care Teams Television Script Writer Relationship Specialty Start Date End Date Aman Lawrence [place] [address] PCP - General 06/16/10 06/27/18 documented as of this encounter
--- OUTSIDE RECORDS SUMMARY | 2024-08-01 18:41 | XMS_ITS | Encounter Summary ---
Author Organization [facility] [place] [address] Care Team Providers Care Security Technician Name Role Phone Aman Lawrence APRN Primary Care Provider +1 -[phone] Encounter Details Date Type Department Care Team (Latest Contact Info) Description 08/14/2010 1:25 PM EST Procedure visit Functional Rastafari Program [place] [address] Bong Cabrera MD Discharge Disposition: Home Social [...] filedocumented in this encounter Care Teams Security Technician Relationship Specialty Start Date End Date Aman Lawrence [place] [address] PCP - General 06/16/10 06/27/18 documented as of this encounter
--- OUTSIDE RECORDS SUMMARY | 2024-08-01 18:41 | XMS_ITS | Encounter Summary ---
Author Organization [facility] [place] [address] Care Team Providers Care Varnishing Unit Operator Name Role Phone Aman Lawrence APRN Primary Care Provider +1 -[phone] Encounter Details Date Type Department Care Team (Late st Contact Info) Description 08/13/2010 8:30 AM EST Office Visit Functional Gnosticist Program [place] [address] Tawnya Allison Social History Tobacco Use Types [...] on filedocumented in this encounter Care Teams Varnishing Unit Operator Relationship Specialty Start Date End [place] [address] PCP - General 06/16/10 06/27/18 documented as of this encounter
--- OUTSIDE RECORDS SUMMARY | 2024-08-01 18:41 | XMS_ITS | Encounter Summary ---
Author Organization [facility] [place] [address] Care Team Providers Care Contact Center Analyst Name Role Phone Aman Lawrence APRN Primary Care Provider +1 -[phone] Encounter Details Date Type Department Care Team (Late st Contact Info) Description 08/06/2010 7:55 AM EST Office Visit Functional Jewish Program [place] [address] Ananth Sesay, PT Social History Tobacco Use [...] filedocumented in this encounter Care Teams Contact Center Analyst Relationship Specialty Start Date End Date Aman Lawrence [place] [address] PCP - General 06/16/10 06/27/18 documented as of this encounter
--- OUTSIDE RECORDS SUMMARY | 2024-08-01 18:41 | XMS_ITS | Encounter Summary ---
Author Organization [facility] [place] [address] Care Team Providers Care Chemical Research Technician Name Role Phone Aman Lawrence APRN Primary Care Provider +1 -[phone] Encounter Details Date Type Department Care Team (Late st Contact Info) Description 08/24/2010 8:30 AM EST Office Visit Psychiatry [place] [address] Sadie Chisholm [facility] [address] [place] [address] Social History Tobacco Use Types Packs/Day Years Used Date Smoking Tobacco: Never Assessed Sex and Gender Information Value Date Recorded Sex Assigned at Not on file Gender Identity Not on file Sexual Orientation Not on file documented as of this encounter Plan of Treatment Not on file documented as of this encounter Visit Diagnoses Not on filedocumented in this encounter Care Teams Chemical Research Technician Relationship Specialty Start Date End Date Aman Lawrence [place] [address] PCP - General 06/16/10 06/27/18 documented as of this encounter
--- OUTSIDE RECORDS SUMMARY | 2024-08-01 18:41 | XMS_ITS | Encounter Summary ---
Author Organization [facility] [place] [address] Care Team Providers Care Strategic Sourcing Consultant Name Role Phone Aman Lawrence APRN Primary Care Provider +1 -[phone] Encounter Details Date Type Department Care Team (Late st Contact Info) Description 08/04/2010 7:55 AM EST Office Visit Functional Mormon Program [place] [address] Ananth Sesay, PT Social History Tobacco Use [...] on filedocumented in this encounter Care Teams Strategic Sourcing Consultant Relationship Specialty Start Date End Date Aman Lawrence [place] [address] PCP - General 06/16/10 06/27/18 documented as of this encounter
--- OUTSIDE RECORDS SUMMARY | 2024-08-01 18:41 | XMS_ITS | Encounter Summary ---
Author Organization [facility] [place] [address] Care Team Providers Care Bag Grader Name Role Phone Yisel Marroquin MD Primary Care Provider Unavail able Encounter Details Date Type Department Care Team (Late st Contact Info) Description 10/11/2011 Orders Only Radiology and Cardiology Results [address] [place] [address] Apd Conversion, Results Provider, Social [...] encounter Results * (ABNORMAL) Hemoglobin A1c (10/11/2011) Estimated Average Glucose 130.3(ExtH ) 82.5 - 116.9 [address] CONVERSION Hemoglobin A1c 6.2(ExtH) 4.5 - 5.7 KOR[facility] [address] DAY CONVERSION 10/11/2011 Results Provider Apd Conversion MD JASON ESTRELLA ORDERABLES [facility] DAY CONVERSION documented in this encounter Visit Diagnoses Not on filedocumented in this encounter Care Teams Bag Grader Relationship Specialty Start Date End Date Yisel Marroquin MD PCP - General 11/13/18 03/05/19 documented as of this encounter
--- OUTSIDE RECORDS SUMMARY | 2024-08-01 18:41 | XMS_ITS | Encounter Summary ---
Author Organization [facility] [place] [address] Care Team Providers Care Animal Pathology Teacher Name Role Phone Aman Lawrence APRN Primary Care Provider +1 -[phone] Reason for Visit * Reason Onset Date Comments Other 04/21/2011 MAP reorder Encounter Details Date Type Department Care Team (Late st Contact Info) Description 04/21/2011 Telephone [place] [address] Tegan Austin Other (MAP reorder) Social History [...] to request a Lidoderm reorder. I called [employer] and placed an order for Lidoderm Patches (5% #90). Order number [id number] [facility] [place] [facility] and[place] arrive within ten business days. I returned Jeannie's call to let her know. documented in this encounter Plan of Treatment Not on file documented as of this encounter Visit Diagnoses Not on filedocumented in this encounter Care Teams Animal Pathology Teacher Relationship Specialty Start Date End Date Aman Lawrence APRN [address] [place] [address] PCP - General 06/16/10 06/27/18 documented as of this encounter
--- OUTSIDE RECORDS SUMMARY | 2024-08-01 18:41 | XMS_ITS | Encounter Summary ---
[place] [address] Care Team Providers Care Spread Cutter Name Role Phone Aman Lawrence APRN Primary Care Provider +1 -[phone] Encounter Details Date Type Department Care Team (Late st Contact Info) Description 08/13/2010 11:00 AM EST Follow-Up [place] [address] Sidra Del Toro APRN Discharge Disposition: Home Social History Tobacco Use [...] 08/13/2010 12:42 PM EST COMPREHENSIVE METABOLIC PANEL Routine 08/13/2010 12:42 PM EST documented in this encounter Results * (ABNORMAL) REFLEX LAB-A-DIFF (08/13/2010 12:42 PM EST) Neutrophil % 53.1 34.0 - 71.0 % CERNER MILLENNIUM Neutrophil Absolute 5.40 1.50 - 6.30 x10(3)/mc L CERNER MILLENNIUM Lymph % 36.6 19.0 - 53.0 % CERNER MILLENNIUM Lymphocytes Abs 3.7(H) 1.0 - 3.6 x10(3)/mc L CERNER MILLENNIUM Monocyte % 8.1 4.0 - 13.0 % CERNER MILLENNIUM Monocyte Abs 0.8 0.2 - 1.0 x10(3)/mc L CERNER MILLENNIUM Eos % 1.7 0.0 - 7.0 % CERNER [...] noted, a manual differential will be performed.v Immature Gran Absolute 0.01 0.00 - 0.05 x10(3)/mc L [facility] Blood specimen (specimen) 08/13/2010 12:42 PM EST 08/13/2010 12:58 PM EST Sidra Del Toro APRN HEMATOLOGY ORDERA BLES Performing Organization Address [facility]/ZIP Co de Phone Number [facility] * (ABNORMAL) REFLEX LAB-PTH (08/13/2010 12:42 PM EST) Parathyroid Hormone 66(H) 15 - 65 pg/mL [facility] Comment: Please note the change in reference range from 10-57 pg/mL to 15-65 pg/mL (11/04/2008). Blood specimen (specimen) 08/13/2010 12:42 PM EST 08/13/2010 12:58 PM EST Sidra Del Toro APRN CHEMISTRY ORDERAB LES Performing Organization Address [facility] Co de Phone Number [facility] * (ABNORMAL) VITAMIN D 25 HYDROXY (08/13/2010 12:42 PM EST) 25-Hydroxy D2 <4.0 ng/mL [facility] Comment: Test Performed by: [place] [address] White Lead Grinder: Kimberly Antonio, Ph.D. 25-Hydroxy D3 11 ng/mL [facility] Comment: Test Performed by: [place] [address] White Lead Grinder: Kimberly Antonio, Ph.D. Vitamin D Total 25 OH 11(L) ng/mL [facility] Comment: Interpretation: 10-24 (mild to moderate deficiency) -- REFERENCE VALUE -- 25-HYDROXY D TOTAL (D2+D3) Optimum levels in the normal population are 25-80 Test Performed by: [place] [address] White Lead Grinder: Kimberly Antonio, Ph.D. Blood specimen (specimen) 08/13/2010 12:42 PM EST 08/13/2010 2:17 PM EST Sidra Del Toro APRN CHEMISTRY ORDERAB LES Performing Organization Address [facility] Co de Phone Number [facility] * (ABNORMAL) VITAMIN B1, WHOLE BLOOD (08/13/2010 12:42 PM EST) Vit B1 Lvl Wb (NOVEMBER) 82(L) 87 - 280 nmol/L [facility] Comment: Test Performed by [employer] [place], [facility], [address] [place] [address] Patricio Jolly M.D., Ph.D., Director of Laboratories , CLIA [id number] Blood specimen (specimen) 08/13/2010 12:42 PM EST 08/13/2010 1:25 PM EST Sidra Del Toro APRN LAB SEND OUT ORDE RABLES Performing Organization Address [facility] Co ak Phone Number [facility] * (ABNORMAL) PREALBUMIN (08/13/2010 12:42 PM EST) Prealbumin 14(L) 20 - 40 mg/dL [facility] Comment: Prealbumin levels are generally lower in the pediatric population; adult concentrations are usually attained near puberty. Blood specimen (specimen) 08/13/2010 12:42 PM EST 08/13/2010 12:58 PM EST Sidra Del Toro APRN CHEMISTRY ORDERAB LES Performing Organization Address [facility] Co de Phone Number [facility] * VITAMIN B12 (08/13/2010 12:42 PM EST) Vitamin B12 789 207 - 974 pg/mL [facility] Blood specimen (specimen) 08/13/2010 12:42 PM EST 08/13/2010 12:58 PM EST Sidra Del Toro APRN CHEMISTRY ORDERAB LES Performing Organization Address City/[facility] Co de Phone Number [facility]ERN[facility] MILLENNIUM * (ABNORMAL) VITAMIN A (08/13/2010 12:42 PM EST) Vitamin A (NOVEMBER) 27.8(L) 32.5 - 78.0 mcg/dL [facility]NI[facility] Comment: Test Performed by: [facility] [place] [address] White Lead Grinder: Kimberly Antonio, Ph.D. Blood specimen (specimen) 08/13/2010 12:42 PM EST 08/13/2010 2:17 PM EST Sidra Del Toro APRN LAB SEND OUT ORDE RABLES Performing Organization Address [facility] Co de Phone Number CERNER MILLENNIUM * FOLATE RBC (08/13/2010 12:42 PM EST) Hematocrit 36.8 34.0 - 45.0 % CERNER MILLENNIUM RBC Folate 590 460 - 1500 ng/mL [facility]ERN[facility] MILLENNIUM Blood specimen (specimen) 08/13/2010 12:42 PM EST 08/13/2010 12:58 PM EST Sidra Del Toro APRN CHEMISTRY ORDERAB LES Performing Organization Address City/[facility]/ZIP Co de Phone Number [facility]ERN[facility] MILLENNIUM * (ABNORMAL) COMPREHENSIVE METABOLIC PANEL (NON-FASTING) (08/13/2010 12:42 PM EST) Glucose 107 <=199 mg/dL [facility] Comment:Diabetes: >=200 mg/d L plus symptoms Blood Urea Nitrogen 13 8 - 18 mg/dL CERNER MILLENNIUM Creatinine 0.69(L) 0.70 - 1.20 mg/dL CERNER MILLENNIUM Sodium 138 135 - 145 mmol/L [...] - 107 mmol/L CERNER MILLENNIUM Carbon Dioxide 25 22 - 31 mmol/L CERNER MILLENNIUM Anion Gap 8 5 - 15 mmol/L CERNER MILLENNIUM Calcium 9.4 8.5 - 10.5 mg/dL CERNER MILLENNIUM Protein, Total 6.7 6.4 - 8.3 gm/dL CERNER MILLENNIUM Albumin 4.0 3.2 - 5.2 gm/dL CERNER MILLENNIUM Aspartate Aminotransferase 21 0 - 30 unit/L CERNER MILLENNIUM Alanine Aminotransferase 19 0 - 30 unit/L CERNER MILLENNIUM Alkaline Phosphatase 105(H) 40 - 104 unit/L CERNER MILLENNIUM Bilirubin, Total 0.1(L) 0.2 - 1.3 mg/dL CERNER MILLENNIUM Bilirubin, Direct <0.1 0.0 - 0.3 mg/dL CERNER MILLENNIUM Est Glomerular Filtration Rate >60 >=60 [facility]ERN[facility] MILLENNIUM Comment: The National [...] 08/13/2010 12:58 PM EST Sidra Del Toro BENCH TECHNICIAN CHEMISTRY ORDERAB LES Performing Organization Address City/[facility]/ZIP Co de Phone Number CERNER MILLENNIUM * (ABNORMAL) IRON AND TIBC (08/13/2010 12:42 PM EST) Iron 21(L) 30 - 150 mcg/dL CERNER MILLENNIUM TIBC 368 250 - 450 mcg/dL CERNER MILLENNIUM Iron Saturation 6(L) 20 - 50 % CERN ER MILLENNIUM Blood specimen (specimen) 08/13/2010 12:42 PM EST 08/13/2010 12:58 PM EST Sidra T Alverto BENCH TECHNICIAN CHEMISTRY ORDERAB LES Performing Organization Address [facility] Co de Phone Number CERNER MILLENNIUM * (ABNORMAL) FERRITIN (08/13/2010 12:42 PM EST) Ferritin 12(L) 15 - 150 ng/mL CERN[facility] MILLENNIUM Comment: Pediatric reference ranges not verified at [facility], interpret with caution. Reference ranges for females greater than 50 years of age approach values for men, i.e., 30-400 ng/mL. Blood specimen (specimen) 08/13/2010 12:42 PM EST 08/13/2010 12:58 PM EST Sidra T Alverto BENCH TECHNICIAN CHEMISTRY ORDERAB LES Performing Organization Address City/[facility]/ZIP Co de Phone Number CERNER MILLENNIUM * (ABNORMAL) CBC (08/13/2010 12:42 PM EST) White Blood Cell 10.2(H) 4.0 - 10.0 x10(3)/mc L CERNER MILLENNIUM Red Blood Cell 4.23 3.93 - 5.22 x10(6)/mc L CERNER MILLENNIUM Hemoglobin 11.4 11.2 - 15.7 gm/dL CERNER MILLENNIUM Hematocrit 36.8 34.0 - 45.0 % CERNER MILLENNIUM Mean Cell Volume 87.9 79.0 - 94.0 fL CERNER MILLENNIUM Mean Cell Hemoglobin 27.0 26.6 - 32.2 pg CERNER MILLENNIUM Mean Cell Hemoglobin Concentration 30.6(L) 32.0 - 36.5 gm/dL CERNER MILLENNIUM Platelet 319 145 - 370 x10(3)/mc L CERNER MILLENNIUM RDW Standard Deviation 53.9(H) 35.0 - 46.0 fL CERNER MILLENNIUM RDW coefficient of variation 16.8(H) 10.9 - 14.4 % CERNER MILLENNIUM Mean Platelet Volume 9.5 9.0 - 12.0 fL CERNER MILLENNIUM Blood specimen (specimen) 08/13/2010 12:42 PM EST 08/13/2010 12:58 PM EST Sidra Del Toro APRN HEMATOLOGY ORDERA BLES Performing Organization Address City/State/[facility] Co de Phone Number [facility] documented in this encounter Visit Diagnoses Not on filedocumented in this encounter Care Teams Spread Cutter Relationship Specialty Start Date End Date Aman Lawrence [place] [address] PCP - General 06/16/10 06/27/18 documented as of this encounter
--- OUTSIDE RECORDS SUMMARY | 2024-08-01 18:41 | XMS_ITS | Encounter Summary ---
Author Organization [facility] [place] [address] Care Team Providers Care Supervisor Lace Tearing Name Role Phone Aman Lawrence APRN Primary Care Provider +1 -[phone] Encounter Details Date Type Department Care Team (Late st Contact Info) Description 08/03/2010 8:00 AM EST Office Visit Functional Catholic Program [place] [address] Tawnya Allison Social History Tobacco Use Types [...] filedocumented in this encounter Care Teams Supervisor Lace Tearing Relationship Specialty Start Date End Date [place] [address] PCP - General 06/16/10 06/27/18 documented as of this encounter
--- OUTSIDE RECORDS SUMMARY | 2024-08-01 18:41 | XMS_ITS | Encounter Summary ---
Author Organization [place] [address] Care Team Providers Care Outside Dealer Sales Representative Name Role Phone Aman Lawrence APRN Primary Care Provider +1 -[phone] Encounter Details Date Type Department Care Team (Late st Contact Info) Description 08/10/2010 7:55 AM EST Office Visit Functional Jain Program [place] [address] Ananth Sesay, PT Social History Tobacco Use [...] on filedocumented in this encounter Care Teams Outside Dealer Sales Representative Relationship Specialty Start Date End Date Aman Lawrence [place] [address] PCP - General 06/16/10 06/27/18 documented as of this encounter
--- OUTSIDE RECORDS SUMMARY | 2024-08-01 18:41 | XMS_ITS | Encounter Summary ---
[place] [address] Care Team Providers Care Payroll And Benefits Manager Name Role Phone Aman Lawrence APRN Primary Care Provider +1 -[phone] Reason for Visit * Reason Comments Obesity Encounter Details Date Type Department Care Team (Late st Contact Info) Description 11/11/2010 9:00 AM EDT Follow-[place] [id number] Sidra Del Toro APRN Bariatric surgery status; Vitamin D deficiency; Hyperparathyroidism [...] Toro T - 11/11/2010 9:20 AM EDT [facility] Admin coordinator Rhonda: [phone] Dietitians: [phone] Surgeons/ nurse practitioner: [phone] Nurse line: [phone] Follow up: will discuss after your upper endoscopy Testing: Labwork: today Please note that labwork results from non-[facility] labs take longer to get results. Please remind the laborer car barn that certain test tubes need to be [...] Park in the Parking Garage. Go to Assistant Producer Area 4T Prescription Medications: will be sent [...] of every month from 1-2 PM at [facility] documented in this encounter Progress Notes * [...] f. hospitalizations in 1993 for suicide attempt, 2004 for severe anxiety g. schizophrenia - Polysubstance [...] Open cholecystectomy ~1991 - CHIP/BSO 1985 in [place] for ovarian cyst - Complete dental extractions [...] blood in stool [] chronic diarrhea/ constipation BACK TACKER: [] LMP: [] control [] menorrhagia [+] [...] visits. Iflabwork is done by the primary family day care worker: please send a copy to the Bariatric Surgery Program,General Surgery Clinic, [facility], attention Sidra Del Toro APRN. Plastic Surgery Clinic evaluation for skin redundancy: done no sooner than 18 months post-operatively when weight loss has been stable for a few months. In general, patients with a BMI >30-35 are not considered candidates due to increased risk of complications unless there are compelling health concerns. Questions regarding [facility] Bariatric Surgery Program patients: please call Jorge Del Toro APRN at [phone] or [phone] beeper [phone]. documented in this encounter Plan of Treatment [...] deficiency documented in this encounter Care Teams Payroll And Benefits Manager Relationship Specialty Start Date End Date Aman Lawrence APRN [address] [place] [address] PCP - General 06/16/10 06/27/18 documented as of this encounter
--- OUTSIDE RECORDS SUMMARY | 2024-08-01 18:41 | XMS_ITS | Encounter Summary ---
Author Organization [place] [address] Care Team Providers Care Fur Blender Name Role Phone Aman Lawrence APRN Primary Care Provider +1 -[phone] Encounter Details Date Type Department Care Team (Late st Contact Info) Description 08/24/2010 8:00 AM EST Procedure visit [place] [address] Social History Tobacco Use Types Packs/Day Years Used Date Smoking Tobacco: Never Assessed Sex and Gender Information Value Date Recorded Sex Assigned at Not on file Gender Identity Not on file Sexual Orientation Not on file documented as of this encounter Plan of Treatment Not on file documented as of this encounter Visit Diagnoses Not on filedocumented in this encounter Care Teams Fur Blender Relationship Specialty Start Date End Date Aman Lawrence [place] [address] PCP - General 06/16/10 06/27/18 documented as of this encounter
--- OUTSIDE RECORDS SUMMARY | 2024-08-01 18:41 | XMS_ITS | Encounter Summary ---
Author Organization [facility] [place] [address] Care Team Providers Care Photographic Process Attendant Name Role Phone Aman Lawrence APRN Primary Care Provider +1 -[phone] Encounter Details Date Type Department Care Team (Late st Contact Info) Description 08/13/2010 7:55 AM EST Office Visit Functional Latter Day Program [place] [address] Ananth Sesay, PT Social History Tobacco Use [...] on filedocumented in this encounter Care Teams Photographic Process Attendant Relationship Specialty Start Date End Date Aman Lawrence [place] [address] PCP - General 06/16/10 06/27/18 documented as of this encounter
--- OUTSIDE RECORDS SUMMARY | 2024-08-01 18:41 | XMS_ITS | Encounter Summary ---
Author Organization [facility] [place] [address] Care Team Providers Care Sales Representative Publications Name Role Phone Aman Lawrence APRN Primary Care Provider +1 -[phone] Encounter Details Date Type Department Care Team (Late st Contact Info) Description 08/07/2010 9:00 AM EST Office Visit Functional Mu-Ism Program [place] [address] Tawnya Allison Social History Tobacco Use Types [...] filedocumented in this encounter Care Teams Sales Representative Publications Relationship Specialty Start Date End [place] [address] PCP - General 06/16/10 06/27/18 documented as of this encounter
--- OUTSIDE RECORDS SUMMARY | 2024-08-01 18:41 | XMS_ITS | Encounter Summary ---
Author Organization [facility] [place] [address] Care Team Providers Care Pass Worker Name Role Phone Aman Lawrence APRN Primary Care Provider +1 -[phone] Encounter Details Date Type Department Care Team (Late st Contact Info) Description 12/04/2010 Surgery [place] [address] Kasia Crouch MD [facility] [place] [address] UPPER GI ENDOSCOPY Social History Tobacco Use [...] vitamins (B COMPLEX-VITAMIN B12) tablet 09/23/2010 11/19/2016 tnfvbmjvnccu-wblt-fakl rals (COMPLETE MULTIVITAMIN) Tab tablet 1 Tablet(s), PO, Once daily 09/23/2010 11/19/2016 calcium citrate-vitamin D (CITRACAL+D) 315-200 mg-unit per tablet 2 Tablet(s), PO, Twice daily 09/23/2010 11/19/2016 ergocalciferol (VITAMIN D) 50,000 unit capsule [id number], PO, TWICE a week 09/23/2010 11/19/2016 documented [...] RN) documented in this encounter Care Teams Pass Worker Relationship Specialty Start Date End Date Aman Lawrence APRN [address] [place] [address] PCP - General 06/16/10 06/27/18 documented as of this encounter
--- OUTSIDE RECORDS SUMMARY | 2024-08-01 18:41 | XMS_ITS | Encounter Summary ---
Author Organization [facility] [place] [address] Care Team Providers Care Traveling Operator Name Role Phone Aman Lawrence APRN Primary Care Provider +1 -[phone] Encounter Details Date Type Department Care Team (Late st Contact Info) Description 08/07/2010 7:55 AM EST Office Visit Functional Oriental Orthodox Program [place] [address] Ananth Sesay, PT Social History Tobacco Use [...] on filedocumented in this encounter Care Teams Traveling Operator Relationship Specialty Start Date End Date Aman Lawrence [place] [address] PCP - General 06/16/10 06/27/18 documented as of this encounter
--- OUTSIDE RECORDS SUMMARY | 2024-08-01 18:41 | XMS_ITS | Encounter Summary ---
Author Organization [facility] [address] Care Team Providers Care Actuarial Intern Name Role Phone Aman Lawrence APRN Primary Care Provider +1 -[phone] Encounter Details Date Type Department Care Team (Late st Contact Info) Description 08/05/2010 7:55 AM EST Office Visit Functional Anabaptism Program [place] [address] Ananth Sesay, PT Social History Tobacco Use [...] on filedocumented in this encounter Care Teams Actuarial Intern Relationship Specialty Start Date End Date Aman Lawrence [place] [address] PCP - General 06/16/10 06/27/18 documented as of this encounter
--- OUTSIDE RECORDS SUMMARY | 2024-08-01 18:41 | XMS_ITS | Encounter Summary ---
Author Organization [facility] [place] [address] Care Team Providers Care Adult High School Instructor Name Role Phone Aman Lawrence APRN Primary Care Provider +1 -[phone] Encounter Details Date Type Department Care Team (Late st Contact Info) Description 08/04/2010 9:00 AM EST Office Visit Functional Baptist Program [place] [address] Tawnya Allison Social History Tobacco Use Types [...] on filedocumented in this encounter Care Teams Adult High School Instructor Relationship Specialty Start Date End [place] [address] PCP - General 06/16/10 06/27/18 documented as of this encounter
--- OUTSIDE RECORDS SUMMARY | 2024-08-01 18:41 | XMS_ITS | Encounter Summary ---
Author Organization [facility] [place] [address] Care Team Providers Care Tank Pumper Panelboard Name Role Phone Aman Lawrence APRN Primary Care Provider +1 -[phone] Encounter Details Date Type Department Care Team (Late st Contact Info) Description 09/23/2010 7:00 AM EST Office Visit [place] [address] CLINIC, Aman Steele APRN [address] [place] [address] Bong Cabrera MD Bryce, Lydia R Social History Tobacco Use Types Packs/Day Years Used Date Smoking Tobacco: Never Assessed Sex and Gender Information Value Date Recorded Sex Assigned at Not on file Gender Identity Not on file Sexual Orientation Not on file documented as of this encounter Plan of Treatment Not on file documented as of this encounter Visit Diagnoses Not on filedocumented in this encounter Care Teams Tank Pumper Panelboard Relationship Specialty Start Date End Date Aman Lawrence APRN [address] [place] [address] PCP - General 06/16/10 06/27/18 documented as of this encounter
--- OUTSIDE RECORDS SUMMARY | 2024-08-01 18:41 | XMS_ITS | Encounter Summary ---
Author Organization [facility] Address [facility] [place] [address] Care Team Providers Care Sightseeing Guide Name Role Phone Aman Lawrence APRN Primary Care Provider +1 -[phone] Encounter Details Date Type Department Care Team (Latest Contact Info) Description 08/24/2010 7:32 AM EST - 08/24/2010 11:59 PM EST Hospital Encounter XRay at [address] [place] [address] Skinny Gomez MD Discharge Disposition: Home Social History Tobacco [...] on filedocumented in this encounter Care Teams Sightseeing Guide Relationship Specialty Start Date [place] [address] PCP - General 06/16/10 06/27/18 documented as of this encounter
--- OUTSIDE RECORDS SUMMARY | 2024-08-01 18:41 | XMS_ITS | Encounter Summary ---
Author Organization [facility] [place] [address] Care Team Providers Care Pier Master Name Role Phone Aman Lawrence APRN Primary Care Provider +1 -[phone] Encounter Details Date Type Department Care Team (Late st Contact Info) Description 08/05/2010 2:30 PM EST Office Visit Functional Cheondoism Program [place] [address] Bong Cabrera MD Social History Tobacco Use [...] on filedocumented in this encounter Care Teams Pier Master Relationship Specialty Start Date End [place] [address] PCP - General 06/16/10 06/27/18 documented as of this encounter
--- OUTSIDE RECORDS SUMMARY | 2024-08-01 18:41 | XMS_ITS | Encounter Summary ---
[place] [address] Care Team Providers Care Direct Service Worker Name Role Phone Yisel Marroquin MD Primary Care Provider Unavail able Encounter Details Date Type Department Care Team (Late st Contact Info) Description 11/14/2012 Orders Only Radiology and Cardiology Results [address] [place] [address] Apd Conversion, Results Provider, Social [...] this encounter Results * (ABNORMAL) TSH (11/14/2012) Thyroid Stimulating Hormone 3.300(Ext ernal Lab) 0.358 - 3.74 KORI GARCIA CONVERSION 11/14/2012 Results Provider Apd Conversion MD JASON ESTRELLA ORDERABLES KORI GARCIA CONVERSION documented in this encounter Visit Diagnoses Not on filedocumented in this encounter Care Teams Direct Service Worker Relationship Specialty Start Date End Date Yisel Marroquin MD PCP - General 11/13/18 03/05/19 documented as of this encounter
--- OUTSIDE RECORDS SUMMARY | 2024-08-01 18:41 | XMS_ITS | Encounter Summary ---
Author Organization [facility] [place] [address] Care Team Providers Care Trailer Truck Driver Name Role Phone Yisel Marroquin MD Primary Care Provider Unavail able Encounter Details Date Type Department Care Team (Late st Contact Info) Description 10/11/2011 Orders Only Radiology and Cardiology Results [address] [place] [address] Apd Conversion, Results Provider, [...] encounter Results * (ABNORMAL) Lipid Panel (10/11/2011) Cholesterol/HDL Ratio 6.6(ExtH) 3.2 - 4.4 KORI FLORES DAY CONVERSION VLDL 43.4(Exte rnal Lab) KORI FLORES DAY CONVERSION LDL Cholesterol 154(Exter nal Lab) KORI FLORES DAY CONVERSION HDL Cholesterol 34.9(Exte rnal Lab) 29 - 89 KORI FLORES DAY CONVERSION Triglyceride 217(ExtH) 0 - 199 KORI Cobos [place] DAY CONVERSION Cholesterol, Total 232(ExtH) 0 - 199 KORI FLORES DAY CONVERSION 10/11/2011 Results Provider Apd Conversion MD JASON ESTRELLA ORDERABLES KORI FLORES DAY CONVERSION documented in this encounter Visit Diagnoses Not on filedocumented in this encounter Care Teams Trailer Truck Driver Relationship Specialty Start Date End Date Yisel Marroquin MD PCP - General 11/13/18 03/05/19 documented as of this encounter
--- OUTSIDE RECORDS SUMMARY | 2024-08-01 18:41 | XMS_ITS | Encounter Summary ---
Author Organization [facility] Address One [facility] [place] [address] Care Team Providers Care Avionics Mechanic Name Role Phone Yisel Marroquin MD Primary Care Provider Unavail able Encounter Details Date Type Department Care Team (Late st Contact Info) Description 03/13/2013 Interpretation Only Radiology [address] [facility] [place] [address] Unknown None Social History Tobacco Use Types [...] 7:35 AM EDT APD Historical Result Principal Biomass Power Plant Manager: ??BERYL ??BASIM MRI LUMBAR SPINE: CLINICAL HISTORY: [...] protrusion at L5/S1. Beryl Stallworth MD ALBAN/cornelio [id number] CC: Procedure Note Unknown - 01/22/2019 APD Historical Result Principal Biomass Power Plant Manager: BERYL STALLWORTH MRI LUMBAR SPINE: CLINICAL HISTORY: [...] protrusion at L5/S1. Beryl Stallworth MD ALBAN/cornelio [id number] CC: Unknown IMG MRI ORDERABLES documented in this encounter Visit Diagnoses Not on filedocumented in this encounter Care Teams Avionics Mechanic Relationship Specialty Start Date End Date Yisel Marroquin MD PCP - General 11/13/18 03/05/19 documented as of this encounter
--- OUTSIDE RECORDS SUMMARY | 2024-08-01 18:41 | XMS_ITS | Encounter Summary ---
Author Organization [facility] [place] [address] Care Team Providers Care Videotape Recording Engineer Name Role Phone Yisel Marroquin MD Primary Care Provider Unavail able Encounter Details Date Type Department Care Team (Late st Contact Info) Description 11/14/2012 Orders Only Radiology and Cardiology Results [address] [place] [address] Apd Conversion, Results Provider, Social [...] encounter Results * (ABNORMAL) Hemoglobin A1c (11/14/2012) Estimated Average Glucose 128.4(ExtH ) 82.5 - 116.9 [facility] [place] DAY CONVERSION Hemoglobin A1c 6.1(Certified Professional Ergonomist al Lab) 4.5 - 6.2 KORI FLORES DAY CONVERSION 11/14/2012 Results Provider Apd Conversion MD JASON ESTRELLA ORDERABLES KORI FLORES DAY CONVERSION documented in this encounter Visit Diagnoses Not on filedocumented in this encounter Care Teams Videotape Recording Engineer Relationship Specialty Start Date End Date Yisel Marroquin MD PCP - General 11/13/18 03/05/19 documented as of this encounter
--- OUTSIDE RECORDS SUMMARY | 2024-08-01 18:41 | XMS_ITS | Encounter Summary ---
Author Organization [facility] [place] [address] Care Team Providers Care Estimate Clerk Name Role Phone Aman Lawrence APRN Primary Care Provider +1 -[phone] Encounter Details Date Type Department Care Team (Late st Contact Info) Description 07/31/2010 2:30 PM EST Office Visit Functional [facility] [place] [address] Bong Cabrera MD Social History Tobacco Use [...] on filedocumented in this encounter Care Teams Estimate Clerk Relationship Specialty Start Date End Date [place] [address] PCP - General 06/16/10 06/27/18 documented as of this encounter
--- OUTSIDE RECORDS SUMMARY | 2024-08-01 18:41 | XMS_ITS | Encounter Summary ---
Author Organization Count Includes [facility] Address One [facility] [place] [address] Care Team Providers Care Navy Diver Name Role Phone Yisel Marroquin MD Primary Care Provider Unavail able Encounter Details Date Type Department Care Team (Late st Contact Info) Description 11/10/2011 Interpretation Only Radiology 1 [facility] [place] [place] [address] Unknown None Social History Tobacco Use Types [...] 7:42 AM EDT APD Historical Result Principal Guest Relations Coordinator: ??ISAK ??ESCHBACH DIRECT-DIGITAL SCREENING MAMMOGRAM: COMPARISON: ??August 06, 2007. ??June 13, 2006. Interpretation is made with the benefit of CAD. The examination consists of bilateral CC and MLO views. Breast composition is predominately fatty. There are no suspicious clusters of microcalcifications, suspicious masses, or areas of architectural distortion to suggest malignancy. IMPRESSION: ACR 1 - NEGATIVE MAMMOGRAM / A12. Isak Benavides DO [facility] [id number] CC: Procedure Note Unknown - 01/23/2019 APD Historical Result Principal Guest Relations Coordinator: ISAK BENAVIDES DIRECT-DIGITAL SCREENING MAMMOGRAM: COMPARISON: August 06, 2007. June 13, 2006. Interpretation is made with the benefit of CAD. The examination consists of bilateral CC and MLO views. Breast composition is predominately fatty. There are no suspicious clusters of microcalcifications, suspiciousmasses, or areas of architectural distortion to suggest malignancy. IMPRESSION: ACR 1 - NEGATIVE MAMMOGRAM / A12. Isak Benavides DO [facility] [id number] CC: Unknown IMG MAMMO ORDERABLES documented in this encounter Visit Diagnoses Not on filedocumented in this encounter Care Teams Navy Diver Relationship Specialty Start Date End Date Yisel Marroquin MD PCP - General 11/13/18 03/05/19 documented as of this encounter
--- OUTSIDE RECORDS SUMMARY | 2024-08-01 18:41 | XMS_ITS | Encounter Summary ---
Author Organization [facility] [place] [address] Care Team Providers Care Ground Water Technician Name Role Phone Aman Lawrence APRN Primary Care Provider +1 [phone] Encounter Details Date Type Department Care Team (Late st Contact Info) Description 08/12/2010 7:55 AM EST Office Visit Functional [facility] Program [place] [address] Ananth Sesay, PT Social History Tobacco Use [...] on filedocumented in this encounter Care Teams Ground Water Technician Relationship Specialty Start Date End Date Aman Lawrence [place] [address] PCP - General 06/16/10 06/27/18 documented as of this encounter
--- OUTSIDE RECORDS SUMMARY | 2024-08-01 18:41 | XMS_ITS | Encounter Summary ---
Author Organization [facility] [place] [address] Care Team Providers Care Shutdown Planner Name Role Phone Aman Lawrence APRN Primary Care Provider +1 -[phone] Encounter Details Date Type Department Care Team (Late st Contact Info) Description 01/18/2011 [place] [address] Bong Cabrera MD Social History Tobacco Use [...] on filedocumented in this encounter Care Teams Shutdown Planner Relationship Specialty Start Date End [place] [address] PCP - General 06/16/10 06/27/18 documented as of this encounter
--- OUTSIDE RECORDS SUMMARY | 2024-08-01 18:41 | XMS_ITS | Encounter Summary ---
Author Organization [facility] [place] [address] Care Team Providers Care Holter Scanning Technician Name Role Phone Aman Lawrence APRN Primary Care Provider +1 [phone] Encounter Details Date Type Department Care Team (Late st Contact Info) Description 08/12/2010 9:00 AM EST Office Visit Functional [facility]arsani Program [place] [address] Tawnya Allison Social History Tobacco Use Types [...] on filedocumented in this encounter Care Teams Holter Scanning Technician Relationship Specialty Start Date End [place] [address] PCP - General 06/16/10 06/27/18 documented as of this encounter
--- OUTSIDE RECORDS SUMMARY | 2024-08-01 18:41 | XMS_ITS | Encounter Summary ---
Author Organization [facility] Address [facility] [place] [address] Care Team Providers Care Associate Attorney Name Role Phone Aman Lawrence APRN Primary Care Provider +1 -[phone] Reason for Visit * Reason Comments Chest Pain Encounter Details Date Type Department Care Team (Late st Contact Info) Description 04/09/2013 9:29 AM EDT - 04/09/2013 2:55 PM EDT [place] [phone] Tavon Reed MD [facility] [place] [address] Chest pain; Chest pain radiating to arm [...] vitamins (B COMPLEX-VITAMIN B12) tablet 09/23/2010 11/19/2016 cdpfodbgcmra-uopm-yobu rals (COMPLETE MULTIVITAMIN) Tab tablet 1 Tablet(s), PO, Once daily 09/23/2010 11/19/2016 calcium citrate-vitamin D (CITRACAL+D) 315-200 mg-unit per tablet 2 Tablet(s), PO, Twice daily 09/23/2010 11/19/2016 ergocalciferol (VITAMIN D) 50,000 unit capsule [id number], PO, TWICE a week 09/23/2010 11/19/2016 documented [...] no other associating symptoms, Pt placed on staffing branch manager, EKG done, iv est, labs drawn, Pt [...] 0.05 x10(3)/mcL RAPID QUALITATIVE DRUG SCREEN, URINE ([facility] Component Value Range MARILU Marijuana Metabolites Scr [...] EDT TROPONIN STAT 04/09/2013 10:44 AM EDT GLUCOSE STAT 04/09/2013 10:44 AM EDT ELECTROLYTES PANEL STAT 04/09/2013 10 :44 AM EDT EKG 12-LEAD STAT 04/09/2013 9:42 AM EDT documented in this encounter Results * Echocardiogram Transthoracic(Leb) (04/09/2013 2:35 PM EDT) EF 60 HEARTLAB SYSTEM Anatomical Region Laterality Modality Other 04/09/2013 Narrative 04/09/2013 3:20 PM EDT Procedure: ? Transthoracic Echocardiogram Patient: ? APOLINAR RUSSELL L ?(Age): 1960(52) Med Rec#: ?[id number] ? Sex: ?F ? Site Loc: ?[facility] ? Ht / Wt: ??163(cm)/108(kg) Pt. Loc: ? ED ? BSA: ?2.21 Study Date: ?04/09/2013 ? Pt. Type: Outpatient Tape: ? Referring: Sergo Ortiz ([id number]) Degree Clerk: Remy Campos Interpreting Fellow: Adal Esqueda ([id number]) Diagnosis:CPT Code(s): ??Spectral Doppler (19053), ??Color Doppler (43972), ??Definity (66388SF), ??Echo Full (54451), Indication(s): ??Chest Pain Rhythm: Bradycardia HR ?BP [...] ? Mid-Inferior ?Normal ? Mid-Inferoseptal ?Normal ? [place]-Septal ? Normal ? [place]-Anterior ? Normal ? [place]-Lateral ?Normal ? [place]-Inferior ? Normal ? [place]-Tip ?Normal ? Chambers ?Value ?Units (Range) ? [...] 04/09/2013 15:20:08 Images reviewed and interpretation verified [facility] Procedure Note Anthony Leary MD - 04/09/2013 Procedure: Transthoracic Echocardiogram Patient: APOLINAR Lawson (Age): 1960(52) Med Rec#: [id number] Sex: F [place] [facility] Ht / Wt: 163(cm)/108(kg) Pt. Loc: ED BSA: 2.21 Study Date: 04/09/2013 Pt. Type: Outpatient Tape: Referring: Sergo Ortiz ([id number]) Degree Clerk: Remy Campos Interpreting Fellow: Adal Esqueda ([id number]) Diagnosis:CPT Code(s): Spectral Doppler (01078), Color Doppler (24075), Definity (93934KG), Echo Full (49276), Indication(s): Chest Pain Rhythm: Bradycardia HR BP [...] Normal Mid-Posterolateral Normal Mid-Inferior Normal Mid-Inferoseptal Normal [place]-Septal Normal [place]-Anterior Normal [place]-Lateral Normal [place]-Inferior Normal [place]-Tip Normal Chambers Value Units (Range) [place] area [...] 04/09/2013 15:20:08 Images reviewed and interpretation verified [facility] Sergo Ortiz MD ECHO ORDERABLES * EKG 12 Lead (04/09/2013 2:24 PM EDT) Ventricular rate 52 BPM MUSE SYSTEM Atrial Rate 52 BPM MUSE SYSTEM P-R Interval 148 ms MUSE SYSTEM QRS Duration 84 ms MUSE SYSTEM Q-T Interval 418 ms MUSE SYSTEM QTC Calculated (Bezet) 388 ms MUSE SYSTEM Calculated P [place] 51 degrees MUSE SYSTEM Calculated R [place] 52 degrees MUSE SYSTEM Calculated T [place] 42 degrees MUSE SYSTEM INTERPRETATION Sinus bradycardia with sinus arrhythmia Nonspecific T wave abnormality Abnormal ECG When compared with ECG of 09-APR-2013 09:42, No significant change was found Confirmed by MD CARL, SERGO ([id number]) on 04/09/2013 6:04:44 PM MUSE SYSTEM 04/09/2013 2:24 PM EDT 04/09/2013 6:04 PM EDT Tavon Reed MD ECG ORDERABLES Performing Organization Address City/[facility] Co de Phone Number MUSE SYSTEM * Troponin T (04/09/2013 2:00 PM EDT) Pathologist [facility] Troponin-T <0.03 <=0.03 ng/mL [facility] Comment: 0.03 ng/mL: Represents the 99th percentile upper reference limit for normals. >0.03 ng/mL: Elevated cardiac troponin T level indicative of myocardial damage. Diagnosis of acute, evolving or recent [place] requires a typical rise and gradual fall [...] consensus document of the Joint Society of Cardiology/[place] College [employer] Cardiology Committee for the redefinition of myocardial infarction. Journal of the [place] College [employer] 2000; 36: 959-969] Blood specimen (specimen) 04/09/2013 2:00 PM EDT 04/09/2013 2:10 PM EDT Narrative Resulting Agency Comment Spec In Lab Tavon Reed MD CHEMISTRY ORDERABLES Performing Organization Address [facility] Co de Phone Number NICANORKELSEY CORTEZJUANAMONTSERRAT * (ABNORMAL) Rapid Qual Drug Screen, Urine ([facility] (04/09/2013 11:50 AM EDT) Pathologist [facility] MARILU Marijuana Metabolites Screen None Detected None Detected [facility] Comment: The marijuana metabolites screen detects the THC Metabolite (94-rwy-7-carboxy- 9-THC) at concentrations >50 ng/mL. Qualitative Drug screens are reported as None Detected or Presumptive Positive as the results are not routinely confirmed by highly-specific methods. As with any screen occasional false positive results from cross-reacting substances can occur. Not for Medico-Legal Purposes. Phencyclidine Screen, Urine None Detected None Detected [facility] MILLENNIUM Comment: The phencyclidine screen detects phencyclidine at concentrations >25 ng/mL. Qualitative Drug screens are reported as None Detected or Presumptive Positive as the results are not routinely confirmed by highly-specific methods. As with any screen occasional false positive results from cross-reacting substances can occur. Not for Medico-Legal Purposes. MARILU Cocaine Metabolites Screen None Detected None Detected [facility] MILLENNIUM Comment: The cocaine metabolites screen detects benzoylecgonine (Cocaine Metabolite) at concentrations >150 ng/mL. Qualitative Drug screens are reported as None Detected or Presumptive Positive as the results are not routinely confirmed by highly-specific methods. As with any screen occasional false positive results from cross-reacting substances can occur. Not for Medico-Legal Purposes. Methamphetamines Screen, Urine None Detected None Detected [facility]ENNI[facility] Comment: The methamphetamine screen detects d-methamphetamine at concentrations >500 ng/mL. Qualitative Drug screens are reported as None Detected or Presumptive Positive as the results are not routinely confirmed by highly-specific methods. As with any screen occasional false positive results from cross-reacting substances can occur. Not for Medico-Legal Purposes. MARILU Opiates Screen Presumptive Pos(A) None Detected [facility] Comment: The opiates screen detects opiates at a concentration >100 ng/mL and oxymorphone >250 ng/mL. Qualitative Drug screens are reported as None Detected or Presumptive Positive as the results are not routinely confirmed by highly-specific methods. As with any screen occasional false positive results from cross-reacting substances can occur. Not for Medico-Legal Purposes. MARILU Amphetamines Screen None Detected None Detected [facility] MILLENNI[facility] Comment: The amphetamine screen detects d-amphetamine at concentrations >500 ng/mL. Qualitative Drug screens are reported as None Detected or Presumptive Positive as the results are not routinely confirmed by highly-specific methods. As with any screen occasional false positive results from cross-reacting substances can occur. Not for Medico-Legal Purposes. MARILU Benzodiazepines Screen None Detected None Detected [facility] M[facility] Comment: [...] occur. Not for Medico-Legal Purposes. MARILU Tricyclics Screen None Detected None Detected [facility] MILLENNI[facility] Comment: [...] occur. Not for Medico-Legal Purposes. MARILU Methadone Screen None Detected None Detected [facility] MILLENNI[facility] Comment: The methadone screen detects methadone at concentrations >200 ng/mL. Qualitative Drug screens are reported as None Detected or Presumptive Positive as the results are not routinely confirmed by highly-specific methods. As with any screen occasional false positive results from cross-reacting substances can occur. Not for Medico-Legal Purposes. MARILU Barbiturates Screen None Detected None Detected [facility] MILLENNIUM Comment: [...] occur. Not for Medico-Legal Purposes. MARILU Oxycodone Srceen None Detected None Detected [facility] MILLENNI[facility] Comment: The oxycodone screen detects oxycodone at concentrations >100 ng/mL and oxymorphone >250 ng/ml. Qualitative Drug screens are reported as None Detected or Presumptive Positive as the results are not routinely confirmed by highly-specific methods. As with any screen occasional false positive results from cross-reacting substances can occur. Not for Medico-Legal Purposes. Propoxyphene Screen, Urine None Detected None Detected [facility] MILLENNIUM Comment: The propoxyphene screen detects propoxyphene at concentrations >300 ng/mL. Qualitative Drug screens are reported as None Detected or Presumptive Positive as the results are not routinely confirmed by highly-specific methods. As with any screen occasional false positive results from cross-reacting substances can occur. Not for Medico-Legal Purposes. MARILU Buprenorphine Screen None Detected None Detected [facility] Comment: The buprenorphine screen detects buprenorphine [...] * Differential, Automated (04/09/2013 10:44 AM EDT) Neutrophil % 59.6 34.0 - 71.0 % CERNER MILLENNIUM Neutrophil Absolute 5.35 1.50 - 6.30 x10(3)/mcL CERNER MILLENNIUM Lymph % 31.4 19.0 - 53.0 % CERNER MILLENNIUM Lymphocytes Abs 2.8 1.0 - 3.6 x10(3)/mcL CERNER MILLENNIUM Monocyte % 7.4 4.0 - 13.0 % CERNER MILLENNIUM Monocyte Abs 0.7 0.2 - 1.0 x10(3)/mcL CERNER MILLENNIUM Eos % 1.0 0.0 - 7.0 % CERNER MILLENNIUM Eosinophils Abs 0.1 0.0 - 0.5 x10(3)/mcL CERNER MILLENNIUM Basophil % 0.4 0.0 - 2.0 % CERNER MILLENNIUM Baso Absolute 0.0 0.0 - 0.2 x10(3)/mcL CERNER MILLENNIUM [...] performed. Immature Gran Absolute 0.02 0.00 - 0.05 x10(3)/mcL NICANORNER DIEGOENNIUM Blood specimen (specimen) 04/09/2013 10:44 AM EDT 04/09/2013 10:56 AM EDT Tavon Reed MD HEMATOLOGY ORDERABLE S [facility] * Troponin T (04/09/2013 10:44 AM EDT) Troponin-T <0.03 <=0.03 ng/mL [facility] Comment: 0.03 ng/mL: Represents the 99th percentile upper reference limit for normals. >0.03 ng/mL: Elevated cardiac troponin T level indicative of myocardial damage. Diagnosis of acute, evolving or recent [place] requires a typical rise and gradual fall [...] consensus document of the Joint Society of Cardiology/[place] College of Cardiology Committee for the redefinition of myocardial infarction. Journal of the [place] College [employer] Cardiology 2000; 36: 959-969] Blood specimen (specimen) 04/09/2013 10:44 AM EDT 04/09/2013 10:56 AM EDT Narrative Resulting Agency Comment Spec In Lab Tavon Reed MD CHEMISTRY ORDERABLES Performing Organization Address [facility] Co de Phone Number [facility] * Glucose, random (04/09/2013 10:44 AM EDT) Glucose 86 60 - 199 mg/dL [facility] Comment:Diabetes: >=200 mg/d L plus symptoms Blood specimen (specimen) 04/09/2013 10:44 AM EDT 04/09/2013 10:56 AM EDT Narrative Resulting Agency Comment Spec In Lab Tavon Reed MD CHEMISTRY ORDERABLES Performing Organization Address [facility] Co de Phone Number [facility] * Creatinine (04/09/2013 10:44 AM EDT) Creatinine 0.75 0.70 - 1.20 mg/dL [facility] Comment: Please note that the pediatric reference intervals supplied above were not validated at [facility]. Results from pediatric patients should be interpreted in conjunction to the patient's age, height and muscle mass. Est Glomerular Filtration Rate >60 >=60 [facility] Comment: This estimated GFR (eGFR) value was [...] Reed MD CHEMISTRY ORDERABLES Performing Organization Address [facility] de Phone Number CERKELSEY MILLENNIUM * BUN (04/09/2013 10:44 AM EDT) Blood Urea Nitrogen 16 8 - 18 mg/dL [facility]ERNER MILLENNIUM Blood specimen (specimen) 04/09/2013 10:44 AM EDT 04/09/2013 10:56 AM EDT Narrative Resulting Agency Comment Spec In Lab Tavon Reed MD CHEMISTRY ORDERABLES Performing Organization Address [facility] de Phone Number [facility]ELSEY MILLEN[facility] * Electrolytes [...] 101 98 - 107 mmol/L [facility] MILLENNIUM Carbon Dioxide 25 22 - 31 mmol/L [facility] MILLENNIUM Anion Gap 12 5 - 15 mmol/L CERNER MILLENNIUM Blood specimen (specimen) 04/09/2013 10:44 AM EDT 04/09/2013 10:56 AM EDT Narrative Resulting Agency Comment Spec In Lab Tavon Reed MD CHEMISTRY ORDERABLES Performing Organization Address [facility] Co de Phone Number CERKELSEY MILLENNIUM * (ABNORMAL) CBC (with Diff) (04/09/2013 10:44 AM EDT) White Blood Cell 9.0 4.0 - 10.0 x10(3)/mc L CERNER MILLENNIUM Red Blood Cell 4.50 3.93 - 5.22 x10(6)/mc L [facility]ERN[facility] MILLENNIUM Hemoglobin 12.7 11.2 - 15.7 gm/dL CERNER MILLENNIUM Hematocrit 41.0 34.0 - 45.0 % CERNER MILLENNIUM Mean Cell Volume 91.1 79.0 - 94.0 fL CERNER MILLENNIUM Mean Cell Hemoglobin 28.2 26.6 - 32.2 pg CERNER MILLENNIUM Mean Cell Hemoglobin Concentration 31.0(L) 32.0 - 36.5 gm/dL CERNER MILLENNIUM Platelet 251 145 - 370 x10(3)/mc L CERNER MILLENNIUM RDW Standard Deviation 51.6(H) 35.0 - 46.0 fL CERNER MILLENNIUM RDW coefficient of variation 15.4(H) 10.9 - 14.4 % CERNER MILLENNIUM Mean Platelet Volume 10.3 9.0 - 12.0 fL CERNER MILLENNIUM Blood specimen (specimen) 04/09/2013 10:44 [...] (Bezet) 388 ms MUSE SYSTEM Calculated P [place] 54 degrees MUSE SYSTEM Calculated R [place] 56 degrees MUSE SYSTEM Calculated T [place] 57 degrees MUSE SYSTEM INTERPRETATION Sinus bradycardia with sinus arrhythmia Nonspecific T wave abnormality Abnormal ECG When compared with ECG of 31-MAY-2005 11:28, anterior T wave inversion more pronounced. Confirmed by MD CARL, SERGO ([id number]) on 04/09/2013 6:04:15 PM MUSE SYSTEM 04/09/2013 9:42 AM EDT 04/09/2013 6:04 PM EDT Calbe Goldberg MD ECG ORDERABLES MUSE SYSTEM documented in [...] Earlene Galloway RN)1110 (Given - Provider: Abby Antonio, RN) perflutren lipid microspheres (DEFINITY) injection 1.6 mL (COMPLETED) 1.6 mL, Intravenous, ONCE PRN, 1 dose, Starting on Tue04/09/13 at 1435, Until Tue04/09/13 at 1300, Other, Routine 1300 (Given - Provid er: Remy Campos) documented in this encounter Care Teams Associate Attorney Relationship Specialty Start Date End Date Aman Lawrence APRN [address] [place] [address] PCP - General 06/16/10 06/27/18 documented as of this encounter
--- OUTSIDE RECORDS SUMMARY | 2024-08-01 18:41 | XMS_ITS | Encounter Summary ---
Author Organization [facility] Address [facility] [place] [address] Care Team Providers Care Clerk Secretary Name Role Phone Aman Lawrence APRN Primary Care Provider [phone] [phone] Encounter Details Date Type Department Care Team (Latest Contact Info) Description 12/04/2010 11:46 AM EDT - 12/04/2010 8:23 PM EDT Hospital Encounter [place] [id number] Skinny Gomez MD Trus, Thadeus L, MD [facility] [place] [address] Discharge Disposition: Home Social History Tobacco Use [...] vitamins (B COMPLEX-VITAMIN B12) tablet 09/23/2010 11/19/2016 jjfhbcisrcnw-lsff-sbjc rals (COMPLETE MULTIVITAMIN) Tab tablet 1 Tablet(s), PO, Once daily 09/23/2010 11/19/2016 calcium citrate-vitamin D (CITRACAL+D) 315-200 mg-unit per tablet 2 Tablet(s), PO, Twice daily 09/23/2010 11/19/2016 ergocalciferol (VITAMIN D) 50,000 unit capsule [id number], PO, TWICE a week 09/23/2010 11/19/2016 documented [...] RN) documented in this encounter Care Teams Clerk Secretary Relationship Specialty Start Date End Date Aman Lawrence APRN [address] [place] [address] PCP - General 06/16/10 06/27/18 documented as of this encounter
--- OUTSIDE RECORDS SUMMARY | 2024-08-01 18:41 | XMS_ITS | Encounter Summary ---
Author Organization [facility] [place] [address] Care Team Providers Care Manager Supply Name Role Phone Aman Lawrence APRN Primary Care Provider +1 -[phone] Encounter Details Date Type Department Care Team (Late st Contact Info) Description 07/31/2010 9:00 AM EST Office Visit Functional Judaism Program [place] [address] Tawnya Allison Social History Tobacco Use Types [...] filedocumented in this encounter Care Teams Manager Supply Relationship Specialty Start Date End Date [place] [address] PCP - General 06/16/10 06/27/18 documented as of this encounter
--- OUTSIDE RECORDS SUMMARY | 2024-08-01 18:41 | XMS_ITS | Encounter Summary ---
Author Organization [facility] [place] [address] Care Team Providers Care Chief Operator Synthesis Name Role Phone Aman Lawrence APRN Primary Care Provider +1 -[phone] Encounter Details Date Type Department Care Team (Late st Contact Info) Description 08/11/2010 7:55 AM EST Office Visit Functional Orthodox Program [place] [address] Ananth Sesay, PT Social History Tobacco Use [...] filedocumented in this encounter Care Teams Chief Operator Synthesis Relationship Specialty Start Date End Date Aman Lawrence [place] [address] PCP - General 06/16/10 06/27/18 documented as of this encounter
--- OUTSIDE RECORDS SUMMARY | 2024-08-01 18:41 | XMS_ITS | Encounter Summary ---
Author Organization [facility] [place] [address] Care Team Providers Care Supervisor Hot Strip Mill Name Role Phone Aman Lawrence APRN Primary Care Provider +1 -[phone] Encounter Details Date Type Department Care Team (Latest Contact Info) Description 08/06/2010 8:00 AM EST Procedure [place] [address] Caroline Hugo CURVE SAW OPERATOR [facility] [place] [address] Discharge Disposition: Home Social History Tobacco Use [...] filedocumented in this encounter Care Teams Supervisor Hot Strip Mill Relationship Specialty Start Date End Date Aman Lawrence [place] [address] PCP - General 06/16/10 06/27/18 documented as of this encounter
--- OUTSIDE RECORDS SUMMARY | 2024-08-01 18:41 | XMS_ITS | Encounter Summary ---
Author Organization [facility] [place] [address] Care Team Providers Care Newspaper Photographer Name Role Phone Aman Lawrence APRN Primary Care Provider +1 -[phone] Encounter Details Date Type Department Care Team (Late st Contact Info) Description 08/10/2010 9:00 AM EST Office Visit Functional Tenriism Program [place] [address] Tawnya Allison Social History Tobacco Use Types [...] on filedocumented in this encounter Care Teams Newspaper Photographer Relationship Specialty Start Date End [place] [address] PCP - General 06/16/10 06/27/18 documented as of this encounter
--- OUTSIDE RECORDS SUMMARY | 2024-08-01 18:41 | XMS_ITS | Encounter Summary ---
Author Organization [facility] [place] [address] Care Team Providers Care Oracle Agile Plm Consultant Name Role Phone Aman Lawrence APRN Primary Care Provider +1 -[phone] Encounter Details Date Type Department Care Team (Late st Contact Info) Description 08/14/2010 8:00 AM EST Office Visit Functional Jain Program [place] [address] Tawnya Allison Social History Tobacco Use Types [...] on filedocumented in this encounter Care Teams Oracle Agile Plm Consultant Relationship Specialty Start Date End Date [place] [address] PCP - General 06/16/10 06/27/18 documented as of this encounter
--- OUTSIDE RECORDS SUMMARY | 2024-08-01 18:41 | XMS_ITS | Encounter Summary ---
Author Organization [facility] [place] [address] Care Team Providers Care Kiln Car Repairer Name Role Phone Aman Lawrence APRN Primary Care Provider +1 -[phone] Encounter Details Date Type Department Care Team (Late st Contact Info) Description 08/06/2010 11:00 AM EST Follow-[place] [id number] Social History Tobacco Use Types Packs/Day Years Used Date Smoking Tobacco: Never Assessed Sex and Gender Information Value Date Recorded Sex Assigned at Not on file Gender Identity Not on file Sexual Orientation Not on file documented as of this encounter Plan of Treatment Not on file documented as of this encounter Visit Diagnoses Not on filedocumented in this encounter Care Teams Kiln Car Repairer Relationship Specialty Start Date End Date Aman Lawrence [place] [address] PCP - General 06/16/10 06/27/18 documented as of this encounter
--- OUTSIDE RECORDS SUMMARY | 2024-08-01 18:41 | XMS_ITS | Encounter Summary ---
[place] [address] Care Team Providers Care Fur Drummer Name Role Phone Yisel Marroquin MD Primary Care Provider Unavail able Encounter Details Date Type Department Care Team (Late st Contact Info) Description 03/08/2012 Orders Only Radiology and Cardiology Results [address] [place] [address] Apd Conversion, Results Provider, Social [...] this encounter Results * (ABNORMAL) TSH (03/08/2012) Thyroid Stimulating Hormone 2.570(Ext ernal Lab) 0.358 - 3.74 KORI GARCIA CONVERSION 03/08/2012 Results Provider Apd Conversion MD JASON ESTRELLA ORDERABLES KORI GARCIA CONVERSION documented in this encounter Visit Diagnoses Not on filedocumented in this encounter Care Teams Fur Drummer Relationship Specialty Start Date End Date Yisel Marroquin MD PCP - General 11/13/18 03/05/19 documented as of this encounter
--- OUTSIDE RECORDS SUMMARY | 2024-08-01 18:41 | XMS_ITS | Encounter Summary ---
Author Organization [facility] [place] [address] Care Team Providers Care Poultry And Fish Butcher Name Role Phone Aman Lawrence APRN Primary Care Provider +1 -[phone] Encounter Details Date Type Department Care Team (Late st Contact Info) Description 08/11/2010 9:00 AM EST Office Visit Functional Confucianist Program [place] [address] Tawnya Allison Social History Tobacco Use Types [...] on filedocumented in this encounter Care Teams Poultry And Fish Butcher Relationship Specialty Start Date End Date [place] [address] PCP - General 06/16/10 06/27/18 documented as of this encounter
--- OUTSIDE RECORDS SUMMARY | 2024-08-01 18:41 | XMS_ITS | Encounter Summary ---
[place] [address] Care Team Providers Care Strategic Account Director Name Role Phone Aman Lawrence APRN Primary Care Provider +1 [phone] Encounter Details Date Type Department Care Team (Latest Contact Info) Description 11/20/2010 1:44 PM EDT - 11/20/2010 7:55 PM EDT Hospital En[place] [id number] Skinny Gomez MD Discharge Disposition: Home Social [...] vitamins (B COMPLEX-VITAMIN B12) tablet 09/23/2010 11/19/2016 lyhnwqgwczxa-igij-buka rals (COMPLETE MULTIVITAMIN) Tab tablet 1 Tablet(s), PO, Once daily 09/23/2010 11/19/2016 calcium citrate-vitamin D (CITRACAL+D) 315-200 mg-unit per tablet 2 Tablet(s), PO, Twice daily 09/23/2010 11/19/2016 ergocalciferol (VITAMIN D) 50,000 unit capsule [id number], PO, TWICE a week 09/23/2010 11/19/2016 documented as of this encounter Miscellaneous Notes * Miscellaneous - Provider, Scanning - 11/20/2010 4:02 PM EDT documented in this encounter Plan of Treatment Not on file documented as of this encounter Visit Diagnoses Not on filedocumented in this encounter Care Teams Strategic Account Director Relationship Specialty Start Date End Date Aman Lawrence APRN [address] [place] [address] PCP - General 06/16/10 06/27/18 documented as of this encounter
--- OUTSIDE RECORDS SUMMARY | 2024-08-01 18:41 | XMS_ITS | Encounter Summary ---
[place] [address] Care Team Providers Care Inspector Weights And Measures Name Role Phone Yisel Marroquin MD Primary Care Provider Unavail able Encounter Details Date Type Department Care Team (Late st Contact Info) Description 10/11/2011 Orders Only Radiology and Cardiology Results [address] [place] [address] Apd Conversion, Results Provider, Social [...] * (ABNORMAL) TSH (10/11/2011 7:20 AM EDT) Thyroid Stimulating Hormone 2.38(Exte rnal Lab) 0.34 - 5.60 mIU/L KORI GARCIA CONVERSION 10/11/2011 7:20 AM EDT Results Provider Apd Conversion MD JASON ESTRELLA ORDERABLES KORI FLORES DAY CONVERSION documented in this encounter Visit Diagnoses Not on filedocumented in this encounter Care Teams Inspector Weights And Measures Relationship Specialty Start Date End Date Yisel Marroquin MD PCP - General General Internal Medicine 03/06/19 0 documented as of this encounter
--- OUTSIDE RECORDS SUMMARY | 2024-08-01 18:41 | XMS_ITS | Encounter Summary ---
Author Organization [facility] [place] [address] Care Team Providers Care Machine Silk Screen Printer Name Role Phone Aman Lawrence APRN Primary Care Provider +1 -[phone] Encounter Details Date Type Department Care Team (Late st Contact Info) Description 01/18/2011 Abstract [place] [address] Lay Davis RN Social History Tobacco Use [...] filedocumented in this encounter Care Teams Machine Silk Screen Printer Relationship Specialty Start Date [place] [address] PCP - General 06/16/10 06/27/18 documented as of this encounter
--- OUTSIDE RECORDS SUMMARY | 2024-08-01 18:41 | XMS_ITS | Encounter Summary ---
Author Organization [facility] [place] [address] Care Team Providers Care Winch Runner Name Role Phone Aman Lawrence APRN Primary Care Provider +1 -[phone] Encounter Details Date Type Department Care Team (Late st Contact Info) Description 08/03/2010 7:55 AM EST Office Visit Functional Hinduism Program [place] [address] Ananth Sesay, PT Social History Tobacco Use [...] on filedocumented in this encounter Care Teams Winch Runner Relationship Specialty Start Date End Date Aman Lawrence [place] [address] PCP - General 06/16/10 06/27/18 documented as of this encounter
--- OUTSIDE RECORDS SUMMARY | 2024-08-01 18:42 | XMS_ITS | Encounter Summary ---
Author Organization [facility] [place] [address] Care Team Providers Care Desktop Technician Name Role Phone Aman Lawrence APRN Primary Care Provider +1 -[phone] Encounter Details Date Type Department Care Team (Late st Contact Info) Description 07/30/2010 2:30 PM EST Office Visit Functional Episcopal Program [place] [address] Bong Cabrera MD Social History Tobacco Use [...] on filedocumented in this encounter Care Teams Desktop Technician Relationship Specialty Start Date End [place] [address] PCP - General 06/16/10 06/27/18 documented as of this encounter
--- OUTSIDE RECORDS SUMMARY | 2024-08-01 18:42 | XMS_ITS | Encounter Summary ---
Author Organization [facility] [place] [address] Care Team Providers Care Preassembler Printed Circuit Board Name Role Phone Aman Lawrence APRN Primary Care Provider +1 -[phone] Encounter Details Date Type Department Care Team (Late st Contact Info) Description 07/31/2010 7:55 AM EST Office Visit Functional Rastafari Program [place] [address] Ananth Sesay, PT Social History Tobacco Use [...] on filedocumented in this encounter Care Teams Preassembler Printed Circuit Board Relationship Specialty Start Date End Date Aman Lawrence [place] [address] PCP - General 06/16/10 06/27/18 documented as of this encounter
--- OUTSIDE RECORDS SUMMARY | 2024-08-01 18:42 | XMS_ITS | Encounter Summary ---
Author Organization [facility] [place] [address] Care Team Providers Care Neurophysiologist Name Role Phone Aman Lawrence APRN Primary Care Provider +1 -[phone] Encounter Details Date Type Department Care Team (Late st Contact Info) Description 07/13/2010 8:00 AM EST Office [place] [address] Tawnya Allison Social History Tobacco Use Types [...] on filedocumented in this encounter Care Teams Neurophysiologist Relationship Specialty Start Date End Date [place] [address] PCP - General 06/16/10 06/27/18 documented as of this encounter
--- OUTSIDE RECORDS SUMMARY | 2024-08-01 18:42 | XMS_ITS | Encounter Summary ---
Author Organization [facility] [place] [address] Care Team Providers Care Aquatics Coordinator Name Role Phone Yisel Marroquin MD Primary Care Provider Unavail able Encounter Details Date Type Department Care Team (Late st Contact Info) Description 08/17/2005 Orders Only Radiology and Cardiology Results [address] [place] [address] Apd Conversion, Results Provider, Social [...] Hemoglobin A1c (08/17/2005 9:24 AM EST) Hemoglobin A1c 5.9(ExtH) 4.5 - 5.7 % KORI FLORES DAY CONVERSION Hemoglobin 16.8(Exter nal Lab) g/dL KORI FLORES DAY CONVERSION 08/17/2005 9:24 AM EST Results Provider Apd Conversion MD JASON ESTRELLA ORDERABLES KORI FLORES DAY CONVERSION documented in this encounter Visit Diagnoses Not on filedocumented in this encounter Care Teams Aquatics Coordinator Relationship Specialty Start Date End Date Yisel Marroquin MD PCP - General General Internal Medicine 03/06/19 0 documented as of this encounter
--- OUTSIDE RECORDS SUMMARY | 2024-08-01 18:42 | XMS_ITS | Encounter Summary ---
Author Organization [facility]ly [facility] [place] [address] Care Team Providers Care Car Seat Maker Name Role Phone Yisel Marroquin MD Primary Care Provider Unavail able Encounter Details Date Type Department Care Team (Late st Contact Info) Description 11/03/2007 Orders Only Radiology and Cardiology Results [address] [place] [address] Apd Conversion, Results Provider, Social [...] (Reflex Direct LDL) (11/03/2007 7:25 AM EDT) Cholesterol, Total 200(ExtH) 0 - 199 mg/dL KORI FLORES DAY CONVERSION Triglyceride 162(Exter nal Lab) 0 - 199 mg/dL KORI FLORES DAY CONVERSION HDL Cholesterol 32.3(Exte rnal Lab) 29 - 89 mg/dL KORI FLORES DAY CONVERSION VLDL 32.4(Exte rnal Lab) mg/dL KORI FLORES DAY CONVERSION Cholesterol/HDL Ratio 6.2(ExtH) 3.2 - 4.4 KORI FLORES CONVERSION 11/03/2007 7:25 AM EDT Results Provider Apd Conversion MD JASON ESTRELLA ORDERABLES KORI FLORES CONVERSION documented in this encounter Visit Diagnoses Not on filedocumented in this encounter Care Teams Car Seat Maker Relationship Specialty Start Date End Date Yisel Marroquin MD PCP - General General Internal Medicine 03/06/19 0 documented as of this encounter
--- OUTSIDE RECORDS SUMMARY | 2024-08-01 18:42 | XMS_ITS | Encounter Summary ---
Author Organization [facility] [place] [address] Care Team Providers Care Financial Coach Name Role Phone Aman Lawrence APRN Primary Care Provider +1 -[phone] Encounter Details Date Type Department Care Team (Late st Contact Info) Description 07/13/2010 9:00 AM EST Follow-[place] [address] Ana Goins, [facility] [place] [address] Social History Tobacco Use Types Packs/Day Years Used Date Smoking Tobacco: Never Assessed Sex and Gender Information Value Date Recorded Sex Assigned at Not on file Gender Identity Not on file Sexual Orientation Not on file documented as of this encounter Plan of Treatment Not on file documented as of this encounter Visit Diagnoses Not on filedocumented in this encounter Care Teams Financial Coach Relationship Specialty Start Date End Date Aman Lawrence APRN [place] [address] PCP - General 06/16/10 06/27/18 documented as of this encounter
--- OUTSIDE RECORDS SUMMARY | 2024-08-01 18:42 | XMS_ITS | Encounter Summary ---
[place] [address] Care Team Providers Care Agricultural Service Technician Name Role Phone Unavailable Primary Care Provider Unavailabl e Encounter Details Date Type Department Care Team (Late st Contact Info) Description 05/28/2010 1:00 PM EDT Office Visit [place] [address] Unknown None Anabell Simpson, PT Social History [...]
--- OUTSIDE RECORDS SUMMARY | 2024-08-01 18:42 | XMS_ITS | Encounter Summary ---
Author Organization [facility] [place] [address] Care Team Providers Care Teletypesetter Operator Name Role Phone Yisel Marroquin MD Primary Care Provider Unavail able Encounter Details Date Type Department Care Team (Late st Contact Info) Description 11/14/2006 Orders Only Radiology and Cardiology Results [address] [place] [address] Apd Conversion, Results Provider, [...] (Reflex Direct LDL) (11/14/2006 8:19 AM EDT) Cholesterol, Total 202(ExtH) 0 - 199 mg/dL KORI FLORES DAY CONVERSION Triglyceride 168(Exter nal Lab) 0 - 199 mg/dL KORI FLORES DAY CONVERSION HDL Cholesterol 34.9(Exte rnal Lab) 29 - 89 mg/dL KORI FLORES DAY CONVERSION VLDL 33.6(Exte rnal Lab) mg/dL KORI FLORES DAY CONVERSION Cholesterol/HDL Ratio 5.8(ExtH) 3.2 - 4.4 KORI FLORES CONVERSION 11/14/2006 8:19 AM EDT Results Provider Apd Conversion MD JASON ESTRELLA ORDERABLES KORI FLORES CONVERSION documented in this encounter Visit Diagnoses Not on filedocumented in this encounter Care Teams Teletypesetter Operator Relationship Specialty Start Date End Date Yisel Marroquin MD PCP - General General Internal Medicine 03/06/19 0 documented as of this encounter
--- OUTSIDE RECORDS SUMMARY | 2024-08-01 18:42 | XMS_ITS | Encounter Summary ---
[place] [address] Care Team Providers Care Livestock Breeder Name Role Phone Unavailable Primary Care Provider Unavailabl e Encounter Details Date Type Department Care Team (Late st Contact Info) Description 05/28/2010 2:00 PM EDT Office [place] [address] Anabell Simpson, PT Social History Tobacco Use [...]
--- OUTSIDE RECORDS SUMMARY | 2024-08-01 18:42 | XMS_ITS | Encounter Summary ---
Author Organization [facility] [place] [address] Care Team Providers Care Hand Ironer Name Role Phone Aman Lawrence APRN Primary Care Provider +1 -[phone] Encounter Details Date Type Department Care Team (Late st Contact Info) Description 07/29/2010 7:55 AM EST Office Visit Functional Latter Day Program [place] [address] Ananth Sesay, PT Social History Tobacco Use [...] filedocumented in this encounter Care Teams Hand Ironer Relationship Specialty Start Date End Date Aman Lawrence [place] [address] PCP - General 06/16/10 06/27/18 documented as of this encounter
--- OUTSIDE RECORDS SUMMARY | 2024-08-01 18:42 | XMS_ITS | Encounter Summary ---
Author Organization [facility] [place] [address] Care Team Providers Care Slabber Name Role Phone Yisel Marroquin MD Primary Care Provider Unavail able Encounter Details Date Type Department Care Team (Late st Contact Info) Description 08/17/2005 Orders Only Radiology and Cardiology Results [address] [place] [address] Apd Conversion, Results Provider, Social [...] Direct LDL) (08/17/2005 9:24 AM EST) VLDL 21.4(Exte rnal Lab) mg/dL KORI FLORES DAY CONVERSION Cholesterol/HDL Ratio 5.7(ExtH) 3.2 - 4.4 KORI FLORES DAY CONVERSION Cholesterol, Total 227(ExtH) 0 - 199 mg/dL KORI FLORES DAY CONVERSION Triglyceride 107(Exter nal Lab) 0 - 199 mg/dL KORI FLORES DAY CONVERSION HDL Cholesterol 40.0(Exte rnal Lab) 29 - 89 mg/dL KORI FLORES CONVERSION 08/17/2005 9:24 AM EST Results Provider Apd Conversion MD JASON ESTRELLA ORDERABLES KORI FLORES CONVERSION documented in this encounter Visit Diagnoses Not on filedocumented in this encounter Care Teams Slabber Relationship Specialty Start Date End Date Yisel Marroquin MD PCP - General General Internal Medicine 03/06/19 0 documented as of this encounter
--- OUTSIDE RECORDS SUMMARY | 2024-08-01 18:42 | XMS_ITS | Encounter Summary ---
Author Organization [facility] [place] [address] Care Team Providers Care Sports Statistician Name Role Phone Aman Lawrence APRN Primary Care Provider +1 -[phone] Encounter Details Date Type Department Care Team (Late st Contact Info) Description 07/29/2010 9:00 AM EST Office Visit Functional Advent Program [place] [address] Tawnya Allison Social History Tobacco Use Types [...] filedocumented in this encounter Care Teams Sports Statistician Relationship Specialty Start Date End Date [place] [address] PCP - General 06/16/10 06/27/18 documented as of this encounter
--- OUTSIDE RECORDS SUMMARY | 2024-08-01 18:42 | XMS_ITS | Encounter Summary ---
Author Organization [facility] [place] [address] Care Team Providers Care Exchange Floor Manager Name Role Phone Yisel Marroquin MD Primary Care Provider Unavail able Encounter Details Date Type Department Care Team (Late st Contact Info) Description 11/03/2007 Orders Only Radiology and Cardiology Results [address] [place] [address] Apd Conversion, Results Provider, Social [...] Hemoglobin A1c (11/03/2007 7:25 AM EDT) Hemoglobin A1c 6.5(ExtH) 4.5 - 5.7 % KORI GARCIA CONVERSION Hemoglobin 14.1(Exter nal Lab) g/dL KORI GARCIA CONVERSION 11/03/2007 7:25 AM EDT Results Provider Apd Conversion MD JASON ESTRELLA ORDERABLES KORI FLORES DAY CONVERSION documented in this encounter Visit Diagnoses Not on filedocumented in this encounter Care Teams Exchange Floor Manager Relationship Specialty Start Date End Date Yisel Marroquin MD PCP - General General Internal Medicine 03/06/19 0 documented as of this encounter
--- OUTSIDE RECORDS SUMMARY | 2024-08-01 18:42 | XMS_ITS | Encounter Summary ---
Author Organization [facility] Address [address] [facility] [place] [address] Care Team Providers Care Operative Supervisor Name Role Phone Yisel Marroquin MD Primary Care Provider Unavail able Encounter Details Date Type Department Care Team (Late st Contact Info) Description 02/26/2009 Interpretation Only Radiology [address] [facility] [place] [address] Unknown None Social History Tobacco Use Types [...] 10:50 AM EDT APD Historical Result Principal Frame Aligner: ??MAUREEN ??B CHEST - PA AND LATERAL: [...] focal abnormality seen. Maureen Enamorado MD, FACR [facility] [id number] CC: Procedure Note Unknown - 01/22/2019 APD Historical Result Principal Frame Aligner: MAUREEN Garrido CHEST - PA AND LATERAL: [...] focal abnormality seen. Maureen Enamorado MD, FACR [facility] [id number] CC: Unknown IMG DX ORDERABLES documented in this encounter Visit Diagnoses Not on filedocumented in this encounter Care Teams Operative Supervisor Relationship Specialty Start Date End Date Yisel Marroquin MD PCP - General 11/13/18 03/05/19 documented as of this encounter
--- OUTSIDE RECORDS SUMMARY | 2024-08-01 18:42 | XMS_ITS | Encounter Summary ---
Author Organization [facility] [place] [address] Care Team Providers Care Loader Engineer Name Role Phone Aman Lawrence APRN Primary Care Provider +1 -[phone] Encounter Details Date Type Department Care Team (Latest Contact Info) Description 07/29/2010 1:20 PM EST Procedure visit Functional Evangelical Program [place] [address] Bong Cabrera MD Discharge Disposition: Home Social [...] on filedocumented in this encounter Care Teams Loader Engineer Relationship Specialty Start Date End Date Aman Lawrence [place] [address] PCP - General 06/16/10 06/27/18 documented as of this encounter
--- OUTSIDE RECORDS SUMMARY | 2024-08-01 18:42 | XMS_ITS | Encounter Summary ---
Author Organization [facility] Address One [facility] [place] [address] Care Team Providers Care Plaster Mixer Name Role Phone Yisel Marroquin MD Primary Care Provider Unavail able Encounter Details Date Type Department Care Team (Late st Contact Info) Description 05/19/2009 Interpretation Only Radiology [address] [facility] [place] [address] Unknown None Social History Tobacco Use Types [...] 10:20 AM EDT APD Historical Result Principal Cosmetics Machine Operator: ??TEGAN ?MACHELLE MR OF THE CERVICAL SPINE: At 1.5 [...] the annulus fibrosus. Tegan Lynch MD KG/ma [id number] CC: Procedure Note Unknown - 01/22/2019 APD Historical Result Principal Cosmetics Machine Operator: TEGAN LYNCH MR OF THE CERVICAL SPINE: At 1.5 raz, multiplanar imaging is obtained through the cervical spineutilizing both short and long TR pulse sequences. Examination is performed in a [id number] with neck pain and bilateral arm tingling. [...] of the annulusfibrosus. Tegan Lynch MD KG/ma [id number] CC: Unknown IMG MRI ORDERABLES documented in this encounter Visit Diagnoses Not on filedocumented in this encounter Care Teams Plaster Mixer Relationship Specialty Start Date End Date Yisel Marroquin MD PCP - General 11/13/18 03/05/19 documented as of this encounter
--- OUTSIDE RECORDS SUMMARY | 2024-08-01 18:42 | XMS_ITS | Encounter Summary ---
Author Organization [facility] [place] [address] Care Team Providers Care Government Auditor Name Role Phone Aman Lawrence APRN Primary Care Provider +1 [phone] Encounter Details Date Type Department Care Team (Latest Contact Info) Description 07/28/2010 8:45 AM EST Procedure [place] [address] Bong Cabrera MD Discharge Disposition: Home Social [...] on filedocumented in this encounter Care Teams Government Auditor Relationship Specialty Start Date End Date Aman Lawrence [place] [address] PCP - General 06/16/10 06/27/18 documented as of this encounter
--- OUTSIDE RECORDS SUMMARY | 2024-08-01 18:42 | XMS_ITS | Encounter Summary ---
Author Organization [facility] [place] [address] Care Team Providers Care Tank Driver Name Role Phone Aman Lawrence APRN Primary Care Provider +1 -[phone] Encounter Details Date Type Department Care Team (Late st Contact Info) Description 07/28/2010 7:45 AM EST Office Visit Functional Orthodox Program [place] [address] Ananth Sesay M, PT Unknown None Discharge Disposition: Home Social History [...] filedocumented in this encounter Care Teams Tank Driver Relationship Specialty Start Date End Date Aman Lawrence [place] [address] PCP - General 06/16/10 06/27/18 documented as of this encounter
--- OUTSIDE RECORDS SUMMARY | 2024-08-01 18:42 | XMS_ITS | Encounter Summary ---
Author Organization [facility] [place] [address] Care Team Providers Care Outside Event Sales Specialist Name Role Phone Aman Lawrence APRN Primary Care Provider +1 -[phone] Encounter Details Date Type Department Care Team (Late st Contact Info) Description 07/28/2010 7:45 AM EST Office Visit Functional Pentecostal Program [place] [address] Tawnya Allison Social History Tobacco Use Types [...] filedocumented in this encounter Care Teams Outside Event Sales Specialist Relationship Specialty Start Date End [place] [address] PCP - General 06/16/10 06/27/18 documented as of this encounter
--- OUTSIDE RECORDS SUMMARY | 2024-08-01 18:42 | XMS_ITS | Encounter Summary ---
Author Organization [facility] [place] [address] Care Team Providers Care Economic Specialist Name Role Phone Aman Lawrence APRN Primary Care Provider +1 -[phone] Encounter Details Date Type Department Care Team (Late st Contact Info) Description 07/30/2010 7:55 AM EST Office Visit Functional Catholic Program [place] [address] Ananth Sesay, PT Social History Tobacco Use [...] on filedocumented in this encounter Care Teams Economic Specialist Relationship Specialty Start Date End Date Aman Lawrence [place] [address] PCP - General 06/16/10 06/27/18 documented as of this encounter
--- OUTSIDE RECORDS SUMMARY | 2024-08-01 18:42 | XMS_ITS | Encounter Summary ---
Author Organization [facility] [place] [address] Care Team Providers Care Product Picker Name Role Phone Aman Lawrence APRN Primary Care Provider +1 -[phone] Encounter Details Date Type Department Care Team (Late st Contact Info) Description 07/30/2010 9:00 AM EST Office Visit Functional Restorationism Program [place] [address] Tawnya Allison Social History Tobacco Use Types [...] filedocumented in this encounter Care Teams Product Picker Relationship Specialty Start Date End [place] [address] PCP - General 06/16/10 06/27/18 documented as of this encounter
--- OUTSIDE RECORDS SUMMARY | 2024-08-01 18:42 | XMS_ITS | Encounter Summary ---
Author Organization [facility] [place] [address] Care Team Providers Care Recycler Name Role Phone Aman Lawrence APRN Primary Care Provider +1 -[phone] Encounter Details Date Type Department Care Team (Late st Contact Info) Description 07/08/2010 8:00 AM EST [place] [address] CLINIC, Aman Steele APRN [address] [place] [address] Bong Cabrera MD Bryce, Lydia R Discharge Disposition: Home Social History Tobacco Use [...] on filedocumented in this encounter Care Teams Recycler Relationship Specialty Start Date End Date Aman Lawrence APRN [address] [place] [address] PCP - General 06/16/10 06/27/18 documented as of this encounter
--- OUTSIDE RECORDS SUMMARY | 2024-08-01 18:42 | XMS_ITS | Encounter Summary ---
Author Organization [facility] [address] Care Team Providers Care Barrow Worker Helper Name Role Phone Aman Lawrence APRN Primary Care Provider +1 [phone] Encounter Details Date Type Department Care Team (Late st Contact Info) Description 06/16/2010 3:00 PM EST Office [place] [address] Adal Oliva, OT [facility] PHYSICAL MEDICINE & [place] [address] Social History Tobacco Use Types Packs/Day Years Used Date Smoking Tobacco: Never Assessed Sex and Gender Information Value Date Recorded Sex Assigned at Not on file Gender Identity Not on file Sexual Orientation Not on file documented as of this encounter Plan of Treatment Not on file documented as of this encounter Visit Diagnoses Not on filedocumented in this encounter Care Teams Barrow Worker Helper Relationship Specialty Start Date End Date [place] [address] PCP - General 06/16/10 06/27/18 documented as of this encounter
--- OUTSIDE RECORDS SUMMARY | 2024-08-01 18:42 | XMS_ITS | Encounter Summary ---
Author Organization [facility] [place] [address] Care Team Providers Care Jitney Driver Name Role Phone Aman Lawrence APRN Primary Care Provider +1 [phone] Encounter Details Date Type Department Care Team (Late st Contact Info) Description 06/23/2010 1:00 PM EST [place] [address] Dhruv Walker, PA Social History Tobacco Use Types Packs/Day Years Used Date Smoking Tobacco: Never Assessed Sex and Gender Information Value Date Recorded Sex Assigned at Not on file Gender Identity Not on file Sexual Orientation Not on file documented as of this encounter Plan of Treatment Not on file documented as of this encounter Visit Diagnoses Not on filedocumented in this encounter Care Teams Jitney Driver Relationship Specialty Start Date End Date Aman Lawrence [place] [address] PCP - General 06/16/10 06/27/18 documented as of this encounter
--- OUTSIDE RECORDS SUMMARY | 2024-08-01 18:42 | XMS_ITS | Encounter Summary ---
Author Organization [facility] [place] [address] Care Team Providers Care Shoe Laster Name Role Phone Aman Lawrence APRN Primary Care Provider +1 -[phone] Encounter Details Date Type Department Care Team (Late st Contact Info) Description 07/08/2010 9:00 AM EST Office [place] [address] Bong Cabrera MD Discharge Disposition: Home Social [...] on filedocumented in this encounter Care Teams Shoe Laster Relationship Specialty Start Date End Date Aman Lawrence [place] [address] PCP - General 06/16/10 06/27/18 documented as of this encounter
[2024-08-02 20:27] LABS: Parathyroid Hormone,Intact 41.5 pg/mL (19.0-88.0)
[2024-08-03 09:36] LABS: Transferrin 216 mg/dL (201-352)
== END 2024-08-01 18:21 | disposition home or self-care (01) ==
LOC: NCHCN 18:20
PROVIDERS: PCP Nurse Practitioner Family; Visit Provider Nurse Practitioner Family
DX: E66.9 Obesity, unspecified (principal)
CPT/HCPCS: 80053; 80061; 82306; 82607; 82728; 83036; 83540; 83550; 83970; 84425; 84466; 85025

== ENCOUNTER 2024-08-07 14:00 | Outpatient (REF) | payer MEDICARE, MEDICAID, SELFPAY ==
--- OUTSIDE RECORDS SUMMARY | 2024-08-07 14:03 | XMS_ITS | Encounter Summary ---
Author Organization [facility] Address [facility] [place] [address] Care Team Providers Care Residential Electrician Name Role Phone Hoang Castellanos APRN [...] slept in a retirement (including now)? No 04/14/2023 Sex and Gender Information Value Date Recorded Sex Assigned at Not on file Gender Identity Not on file Sexual Orientation Not on file documented as of this encounter Plan of Treatment Not on file documented as of this encounter Visit Diagnoses Not on filedocumented in this encounter Care Teams Residential Electrician Relationship Specialty Start Date End Date Hoang Castellanos, PERSONALIZED LIVING MANAGER [address] [place] [address] PCP - General Family Medicine 03/12/20 documented as of this encounter
--- OUTSIDE RECORDS SUMMARY | 2024-08-07 14:03 | XMS_ITS | Clinical Summary ---
Author Organization [facility] Address [address] [place] [address] Care Team Providers Care Vegetable Worker Name Role Phone Unavailable Primary Care Provider Unavailabl e Encounters Date Type Department Care Team Description 08/02/2024 Lab Requisition [facility] Pathology & Laboratory Medicine - [facility] [address] [place] [address] Outr Resulting Lab, Provider from Last 3 Months Social History Tobacco Use Types Packs/Day Years [...] Years) (1 - 1-dose 75+ series) 2035 Procedures Procedure Name Priority Date/Time Associated Diagnosis Comments PTH INTACT Routine 08/01/2024 14:00 EST TRANSFERRIN Routine 08/01/2024 14:00 EST from Last 3 Months Results * PTH INTACT (08/01/2024 14:00 EST) Intact PTH 41.5 19.0 - 88.0 pg/mL 08/02/2024 20:22 EST [facility] Blood VENOUS BLOOD / Unknown 08/01/2024 14:00 EST 08/02/2024 19:27 EST us Provider Outr Resulting Lab CHEMISTRY & BLOOD GA S ORDERABLES Final Result [facility] [address] [place] [address] * TRANSFERRIN (08/01/2024 14:00 EST) Transferrin 216 201 - 352 mg/dL 08/03/2024 9:30 EST [facility] Blood VENOUS BLOOD / Unknown 08/01/2024 14:00 EST 08/02/2024 19:27 EST us Provider Outr Resulting Lab CHEMISTRY & BLOOD GA S ORDERABLES Final Result [facility] [address] [place], [place] [id number] from Last 3 Months
--- OUTSIDE RECORDS SUMMARY | 2024-08-07 14:03 | XMS_ITS | Clinical Summary ---
Author Organization [facility] Address [facility] [place] [address] Care Team Providers Care Formation Testing Operator Name Role Phone Hoang Castellanos APRN [...] mg Tablet, SublingualIndication s:Coronary artery disease involving [place] coronary artery of [place] heart without angina pectoris Place 1 tablet [...] Miconazole PowderIndications:De rmal mycosis 1 Application by [facility].(Non-Drug; Combo Route) route 2 times daily. 100 g 3 01/14/2022 Active isosorbide mononitrate CR (Imdur) 30 mg Tablet Sustained Release 24 hrIndications:Almanza ry artery disease involving rapp[place]ock coronary artery of rapp[place]ock heart without angina pectoris Take 1 tablet [...] Osteoporosis 02/02/2016 Overview (02/02/2016): DEXA done at [facility] on 10/29/15: osteoporosis at the [...] 03/23/2022 Cerumen impaction 12/13/2014 02/05/2020 Atherosclerosis of [place] co ronary artery of [place]ock heart without angina pectoris 05/09/2013 Hypertension 05/09/2013 01/08/2020 Smokes cigarettes 05/09/2013 12/01/2021 Hypothyroidism 05/09/2013 01/08/2020 Obesity, S/P remote gastric bypass in 1996, prior VBG 05/09/2013 03/04/2020 Immunizations Name Administration Dates Next Due Covid-19 Bivalent (Pfizer Co mirnaty) 12yrs+ (5658-9199) 05/13/2022 Covid-19 Monovalent (Pfizer Comirnaty purple cap) [...] in a group home (including now)? No 04/14/2023 Sex and [...] Completed 03/04/2020, 09/24/2019 Pneumococcal Vaccine: At-Ris k 5-49yrs Completed 03/23/2022, 05/19/2017, 05/13/2008 Covid-19 Vaccine Completed 04/12/2024, 01/2023, 05/13/2022, Additional history exists Medical Devices Implanted Type Area Design Tech Device Identifier Shelf Expiration Date Model / Serial / Lot Graft Bone Filler [id number] Dbm Freeze Dried Chips ([id number]) (Autoreq) - [id number] Implanted:Qty : 1 on 10/30/2021 by Campos Puente MD at [facility] IMPLANTS N/A: Spine Cervical [employer] - [employer] 06/16/2025 [id number] / [id number] / [id number] Graft Bone Filler 5cc Dbm Jar Putty Brule ([id number]) ([employer]oreq) - [id number] Implanted:Qty : 1 on 10/30/2021 by Campos Puente MD at [facility] IMPLANTS N/A: Spine Cervical [employer] - [employer] 06/08/2024 [id number] / [id number] / Yaya Spinal 3.5x25mm [place]ipito Cervical Pre Cut Ti ([id number]) ([employer]oreq) - [id number] Implanted:Qty : 2 on 10/30/2021 by Campos Puente MD at [facility] IMPLANTS N/A: Spine Cervical [employer] - [employer] [id number] / / Screw Spinal 3.5x12mm Posterior Cervical Mltaxl Sld Ti ([id number]) ([employer]oreq) - [id number] Implanted:Qty : 4 on 10/30/2021 by Campos Puente MD at [facility] IMPLANTS N/A: Spine Cervical [employer] - [employer] [id number] / / Screw Spinal Set Posterior Cervical Mltaxl Sld Pt Infinity ([id number]) (Autoreq) - [id number] Implanted:Qty : 1 on 10/30/2021 by Campos Puente MD at [facility] IMPLANTS N/A: Spine Cervical [employer] - [employer] [id number] / / Procedures Procedure Name Priority Date/Time [...] EST) Glucose 131 65 - 199 mg/dL [facility] Comment:Diabetes: >=200 mg/d L plus symptoms Blood Urea Nitrogen 24(H) 8 - 18 mg/dL [facility] Creatinine 0.69(L) 0.70 - 1.20 mg/dL [facility] Sodium 139 135 - 145 mmol/L [facility] Potassium 4.5 3.5 - 5.0 mmol/L [...] [facility] [place] [phone] * Mammo Screening Cad and Jessy Bilateral [...] Documents on File Type Date Recorded Patient Appeals Specialist Expl anation Advance Directives and Livin g [...] is based on Patients wishes. Care Teams Formation Testing Operator Relationship Specialty Start Date End Date Hoang Castellanos, FILM RECORDIST [address] [place] [address] PCP - General Family Medicine 03/12/20
--- OUTSIDE RECORDS SUMMARY | 2024-08-07 14:03 | XMS_ITS | Encounter Summary ---
Author Organization [facility] Address [address] [place] [address] Care Team Providers Care Safety Specialist Name Role Phone Unavailable Primary Care Provider Unavailabl e Encounter Details Date Type Department Care Team (Late st Contact Info) Description 01/19/2023 Lab Requisition [facility] Pathology & Laboratory Medicine - [facility] [address] [place] [address] Outr Resulting Lab, Provider Social History Tobacco [...] 32 - 197 mg/dL 01/20/2023 11:04 EDT [facility] Blood VENOUS BLOOD / Unknown 01/19/2023 8:05 EDT 01/19/2023 17:07 EDT us Provider Outr Resulting Lab CHEMISTRY & BLOOD GA S ORDERABLES Final Result [facility] [address] [place] [address] documented in this encounter Visit Diagnoses Not on filedocumented in this encounter
--- OUTSIDE RECORDS SUMMARY | 2024-08-07 14:03 | XMS_ITS | Encounter Summary ---
Author Organization [facility] Address [address] [place] [address] Care Team Providers Care Optical Instrument Repairer Name Role Phone Unavailable Primary Care Provider Unavailabl e Encounter Details Date Type Department Care Team (Late st Contact Info) Description 03/21/2023 Lab Requisition [facility] Pathology & Laboratory Medicine - [facility] [address] [place] [address] Outr Resulting Lab, Provider Social History Tobacco [...] 19 - 88 pg/mL 03/21/2023 22:22 EDT [facility] Blood VENOUS BLOOD / Unknown 03/21/2023 9:45 EDT 03/21/2023 21:17 EDT us Provider Outr Resulting Lab CHEMISTRY & BLOOD GA S ORDERABLES Final Result [facility] [address] [place] [address] documented in this encounter Visit Diagnoses Not on filedocumented in this encounter
--- OUTSIDE RECORDS SUMMARY | 2024-08-07 14:03 | XMS_ITS | Encounter Summary ---
Author Organization [facility] Address [address] [place] [address] Care Team Providers Care Senior Reservations Agent Name Role Phone Unavailable Primary Care Provider Unavailabl e Encounter Details Date Type Department Care Team (Late st Contact Info) Description 08/02/2022 Lab Requisition [facility] Pathology & Laboratory Medicine - [facility] [address] [place] [address] Outr Resulting Lab, Provider Social History Tobacco [...] 19 - 88 pg/mL 08/02/2022 23:37 EST [facility] Blood VENOUS BLOOD / Unknown 08/02/2022 9:00 EST 08/02/2022 17:01 EST us Provider Outr Resulting Lab CHEMISTRY & BLOOD GA S ORDERABLES Final Result [facility] [address] [place] [address] documented in this encounter Visit Diagnoses Not on filedocumented in this encounter
--- OUTSIDE RECORDS SUMMARY | 2024-08-07 14:03 | XMS_ITS | Encounter Summary ---
Author Organization [facility] Address [address] [place] [address] Care Team Providers Care Orthopedic Cast Specialist Name Role Phone Unavailable Primary Care Provider Unavailabl e Encounter Details Date Type Department Care Team (Late st Contact Info) Description 09/09/[address] [facility] Pathology & Laboratory Medicine - [facility] [address] [place] [address] Outr Resulting Lab, Provider Social History Tobacco [...] Insulin 7.8 <29.0 uIU/mL 09/13/2022 9:[address] [facility] Comment: Displayed Reference Range applies to fasting specimens only. Blood VENOUS BLOOD / Unknown 09/09/2022 7:35 EST 09/09/2022 16:51 EST us Provider Outr Resulting Lab CHEMISTRY & BLOOD GA S ORDERABLES Final Result [facility] [address] [place] [address] documented in this encounter Visit Diagnoses Not on filedocumented in this encounter
--- OUTSIDE RECORDS SUMMARY | 2024-08-07 14:03 | XMS_ITS | Encounter Summary ---
Author Organization [facility] Address [address] [place] [address] Care Team Providers Care Claims Customer Service Representative Name Role Phone Unavailable Primary Care Provider Unavailabl e Encounter Details Date Type Department Care Team (Late st Contact Info) Description 01/03/2023 Lab Requisition [facility] Pathology & Laboratory Medicine - [facility] [address] [place] [address] Outr Resulting Lab, Provider Social History Tobacco [...] 55.8 - 66.1 % 01/04/2023 14:04 EDT [facility] Albumin g/dL 3.8 3.6 - 5.2 g/dL 01/04/2023 14:04 EDT [facility] Alpha-1 % 5.6(H) 2.9 - 4.9 % 01/04/2023 14:04 EDT [facility] Alpha-1 g/dL 0.40 0.15 - 0.40 g/dL 01/04/2023 14:04 [facility] Alpha-2 % 11.8 7.1 - 11.8 % 01/04/2023 14:04 [facility] Alpha-2 g/dL 0.80 0.50 - 1.00 g/dL 01/04/2023 14:04 [facility] Beta % 12.8 8.4 - 13.1 % 01/04/2023 14:04 [facility] Beta g/dL 0.80 0.60 - 1.20 g/dL 01/04/2023 14:04 [facility] Gamma % 11.0(L) 11.1 - 18.8 % 01/04/2023 14:04 [facility] Gamma g/dL 0.70 0.60 - 1.60 g/dL 01/04/2023 14:04 [facility] SPEP Comment No apparent monoclonal protein seen on serum electrophoresis 01/04/2023 14:04 [facility] Comment:See scanned/suppleme ntary report. Total Protein 6.4 6.3 - 8.2 g/dL 01/04/2023 14:04 [facility] Blood VENOUS BLOOD / Unknown 01/02/2023 11:00 EDT 01/03/2023 17:13 EDT us Provider Outr Resulting Lab CHEMISTRY & BLOOD GA S ORDERABLES Final Result [facility] [address] [place] [address] * PROTEIN, TOTAL (01/02/2023 11:00 EDT) Blood VENOUS BLOOD / Unknown 01/02/2023 11:00 EDT 01/03/2023 17:13 EDT us Provider Outr Resulting Lab CHEMISTRY & BLOOD GA S ORDERABLES Final Result [facility] [address] [place] [address] documented in this encounter Visit Diagnoses Not on filedocumented in this encounter
--- OUTSIDE RECORDS SUMMARY | 2024-08-07 14:03 | XMS_ITS | Referral Summary ---
Author Organization [facility] Address [address] [place] [address] Care Team Providers Care Shipping Agent Name Role Phone Unavailable Primary Care Provider Unavailabl e Encounters Date Type Department Care Team Description 08/02/2024 Lab Requisition [facility] Pathology & Laboratory Medicine - [facility] [address] [place] [address] Outr Resulting Lab, Provider from Last 3 Months Social History Tobacco Use Types Packs/Day Years Used Date Smoking Tobacco: Never Assessed Comments Unknown Sex and Gender Information Value Date Recorded Sex Assigned at Not on file Legal Sex Female 12:21 EST Gender Identity Not on file Sexual Orientation Not on file Plan of Treatment Not on file Procedures Procedure Name Priority Date/Time Associated Diagnosis Comments PTH INTACT Routine 08/01/2024 14:00 EST TRANSFERRIN Routine 08/01/2024 14:00 EST from Last 3 Months Results * PTH INTACT (08/01/2024 14:00 EST) Intact PTH 41.5 19.0 - 88.0 pg/mL 08/02/2024 20:22 EST [facility] Blood VENOUS BLOOD / Unknown 08/01/2024 14:00 EST 08/02/2024 19:27 EST us Provider Outr Resulting Lab CHEMISTRY & BLOOD GA S ORDERABLES Final Result [facility] [address] [place] [address] * TRANSFERRIN (08/01/2024 14:00 EST) Transferrin 216 201 - 352 mg/dL 08/03/2024 9:30 EST [facility] Blood VENOUS BLOOD / Unknown 08/01/2024 14:00 EST 08/02/2024 19:27 EST us Provider Outr Resulting Lab CHEMISTRY & BLOOD GA S ORDERABLES Final Result [facility] [address] [place], [place] [id number] from Last 3 Months
--- OUTSIDE RECORDS SUMMARY | 2024-08-07 14:03 | XMS_ITS | Encounter Summary ---
[place] [address] Care Team Providers Care Playground Director Name Role Phone Hoang Castellanos APRN Primary Care Provider Encounter Details Date Type Department Care Team (Late st Contact Info) Description 07/14/2023 Telephone [place] [phone] Meena Hastings, RD Social History Tobacco Use [...] EST Called [facility] appt with Jeannie on 07/13/23 and spoke with Daniella, the assisted living nursing director. Reviewed vitamin and mineral supplement recommendation with [...] to have documented. Daniella requested a endoscopy registered nurse of Jeannie's labwork be sent to the [facility]. Asked Daniella about Jeannie's gluten-free diet. Daniella reported that Jeannie has struggled with pain management since joining the [facility] about 1 yr ago. Jeannie will [...] on filedocumented in this encounter Care Teams Playground Director Relationship Specialty Start Date End Date Hoang Castellanos APRN [address] [place] [address] PCP - General Family Medicine 03/12/20 documented as of this encounter
--- OUTSIDE RECORDS SUMMARY | 2024-08-07 14:03 | XMS_ITS | Encounter Summary ---
Author Organization [facility] Address [address] [place] [address] Care Team Providers Care Pest Control Supervisor Name Role Phone Unavailable Primary Care Provider Unavailabl e Encounter Details Date Type Department Care Team (Late st Contact Info) Description 08/02/2024 Lab Requisition [facility] Pathology & Laboratory Medicine - [facility] [address] [place] [address] Outr Resulting Lab, Provider Social History Tobacco [...] 14:00 EST TRANSFERRIN Routine 08/01/2024 14:00 EST documented in this encounter Results * PTH INTACT (08/01/2024 14:00 EST) Intact PTH 41.5 19.0 - 88.0 pg/mL 08/02/2024 20:22 EST [facility] Blood VENOUS BLOOD / Unknown 08/01/2024 14:00 EST 08/02/2024 19:27 EST us Provider Outr Resulting Lab CHEMISTRY & BLOOD GA S ORDERABLES Final Result [facility] [address] [place] [address] * TRANSFERRIN (08/01/2024 14:00 EST) Transferrin 216 201 - 352 mg/dL 08/03/2024 9:30 EST [facility] Blood VENOUS BLOOD / Unknown 08/01/2024 14:00 EST 08/02/2024 19:27 EST us Provider Outr Resulting Lab CHEMISTRY & BLOOD GA S ORDERABLES Final Result [facility] [address] [place] [id number] documented in this encounter Visit Diagnoses Not on filedocumented in this encounter
--- OUTSIDE RECORDS SUMMARY | 2024-08-07 14:04 | XMS_ITS | Encounter Summary ---
Author Organization [place] [address] Care Team Providers Care Coal Drier Operator Name Role Phone Hoang Castellanos APRN Primary Care Provider [phone] Encounter Details Date Type Department Care Team (Latest Contact Info) Description 05/26/2022 1:30 PM EDT TH Visit (TeleHealth) Primary Care at [facility] [address] [facility] [place] [phone] Hoang Castellanos APRN [address] [place] [address] Cervical spinal stenosis; Arthrodesis present; Right leg [...] this encounter Progress Notes * Hoang Castellanos, WOMEN'S SOCCER COACH - 05/26/2022 1:30 PM EDT [facility] Telehealth Encounter Nurse Call: Patient called to notify of telehealth visit. For patients in facilities or with caregivers, these were also notified. BEST PHONE NUMBER: [phone] Is this a cell phone number: yes [...] who presents for a telehealth visit with [facility] Primary Care. Concerns: 1. Paperwork Chronic care needs Urinary incontinence, occasional fecal incontinence RLE weakness Cervical stenosis, chronic neck pain PTSD/LAURA/bipolar disorder Moving to a facility in [facility] Will be switching her primary care Objective: VS: Physical Exam Assessment and Plan: Diagnoses and all orders for this visit: Cervical spinal stenosis Arthrodesis present Right leg weakness Administrative encounter On the day of this encounter, I the medical provider spent a total of at least 20 minutes providingthis patient's care. This includes time spent [id number] with the patient performing evaluation, examination, and counseling. It also includes non [id number] time preparing to see the patient, reviewing the chart, coordinating care, and documenting clinical information in the electronic health record. (Established patient total visit time: 42737 - 20min, 92597 - 30 min, 42255 - 40 min; New patient total visit times: 91426 - 30 min, 70565 - 45 min, 56289 - 60 min) Follow-up: No follow-ups on [...] unspecified documented in this encounter Care Teams Coal Drier Operator Relationship Specialty Start Date End Date Hoang Castellanos APRN [address] [place] [address] PCP - General Family Medicine 03/12/20 documented as of this encounter
--- OUTSIDE RECORDS SUMMARY | 2024-08-07 14:04 | XMS_ITS | Encounter Summary ---
Author Organization [facility] Address [facility] [place] [address] Care Team Providers Care Account Relationship Manager Name Role Phone Hoang Castellanos [...] slept in a mcc (including now)? No 04/14/2023 Sex and Gender Information Value Date Recorded Sex Assigned at Not on file Gender Identity Not on file Sexual Orientation Not on file documented as of this encounter Plan of Treatment Not on file documented as of this encounter Visit Diagnoses Not on filedocumented in this encounter Care Teams Account Relationship Manager Relationship Specialty Start Date End Date Hoang Castellanos, RFID SPECIALIST [address] [place] [address] PCP - General Family Medicine 03/12/20 documented as of this encounter
--- OUTSIDE RECORDS SUMMARY | 2024-08-07 14:04 | XMS_ITS | Encounter Summary ---
Author Organization [facility] Address [facility] [place] [address] Care Team Providers Care Equal Employment Opportunity Officer Name Role Phone Hoang Castellanos APRN Primary Care Provider Encounter Details Date Type Department Care Team (Late st Contact Info) Description 04/27/2022 9:00 AM EDT Home Care Visit [facility] for Care [address] [place] [phone] Kimberly Austin, FISH BONING MACHINE FEEDER LT PIGMENT SUPPLIER HOME VISIT Social History Tobacco Use Types [...] Care Plan Visit Details Visit Type -LTC PIGMENT SUPPLIER Home Vis it Discipline -Home Health Aide Problems Problem Description Start Date Status Goals Interve ntions A Required Screenings Disciplines: [facility] 03/25/2022 Active 1 goal linked to scheduled/documente d intervention 1 goal intervention scheduled/documente d in this visit Other Disciplines: [facility] 03/25/2022 Active 1 goal linked to scheduled/documente d intervention 1 goal intervention scheduled/documente d in this visit House Keeping Disciplines: [facility] 03/25/2022 Active 1 goal linked to scheduled/documente d intervention 9 goal interventions scheduled/documente d in this visit Personal Care Disciplines: [facility] 03/25/2022 Active 1 goal linked [...] be perfomed by aide as directed Completed [facility] KITCHEN ARE[facility] Description: Straighten kitchen area [...] refused documented in this encounter Care Teams Equal Employment Opportunity Officer Relationship Specialty Start Date End Date Hoang Castellanos APRN [address] [place] [address] PCP - General Family Medicine 03/12/20 documented as of this encounter
--- OUTSIDE RECORDS SUMMARY | 2024-08-07 14:04 | XMS_ITS | Encounter Summary ---
[place] [address] Care Team Providers Care Grease Refining Supervisor Name Role Phone Hoang Castellanos APRN Primary Care Provider Encounter Details Date Type Department Care Team (Latest Contact Info) Description 07/13/2023 12:30 PM EST Laboratory Appointment Lab [address] [place] [phone] S/P gastric bypass; Disorder of iron metabolism; [...] in a skilled nursing (including now)? No 04/14/2023 Sex and Gender [...] EST) Glucose 131 65 - 199 mg/dL [facility] Comment:Diabetes: >=200 mg/d L plus symptoms Blood Urea Nitrogen 24(H) 8 - 18 mg/dL [facility] Creatinine 0.69(L) 0.70 - 1.20 mg/dL [facility] Sodium 139 135 - 145 mmol/L [facility] Potassium 4.5 3.5 - 5.0 mmol/L [facility] Comment: Please note: ??Patients with WBC >100,000 may have falsely elevated Potassium levels. ??For accurate Potassium quantification in these patients send serum separator tube (gold top) for subsequent determinations. ??Contact the Clinical Chemistry Laboratory if there are any questions. Chloride 100 98 - 107 mmol/L [facility] Carbon Dioxide 30 22 - 31 mmol/L [facility] Anion Gap 9 5 - 15 mmol/L [facility] Calcium 10.0 8.5 - 10.5 mg/dL [facility] Protein, Total 6.9 6.1 - 8.0 g/dL [facility] Albumin 4.4 3.2 - 5.2 g/dL [facility] Aspartate Aminotransferase 20 0 - 30 unit/L [facility] Alanine Aminotransferase 21 0 - 30 unit/L [facility] Alkaline Phosphatase 97 35 - 105 unit/L [facility] Bilirubin, Total <0.2(L) 0.2 - 1.3 mg/dL [facility] Est Glomerular Filtration Rate 97 >=60 mL/min/1. 73 m?? [facility] Comment: This patient's estimated GFR [...] APRN CHEMISTRY ORDERA BLES Performing Organization Address [facility] Co de Phone Number [facility] [place] [address] * Ferritin (07/13/2023 12:38 PM EST) Ferritin 46 11 - 328 ng/mL [facility] Comment: Please note that as of 06/29/2023, the reference intervals for Ferritin have been updated. Blood 07/13/2023 12:3 8 PM EST 07/13/2023 12:43 PM EST Narrative Resulting Agency Comment Spec In Lab Priya Charles APRN CHEMISTRY ORDERA BLES Performing Organization Address City/[facility]/ZIP Co de Phone Number [facility] [place] [place] [address] * Folate, serum (07/13/2023 12:38 PM EST) Folate 16.5 4.8 - 24.2 ng/mL [facility] Blood 07/13/2023 12:3 8 PM EST 07/13/2023 12:43 PM EST Narrative Resulting Agency Comment Spec In Lab Priya Charles SPD TECH CHEMISTRY ORDERA BLES [facility] [place] [place] [address] * (ABNORMAL) Hemogram (07/13/2023 12:38 PM EST) White Blood Cell 11.1(H) 4.0 - 9.5 x10(3)/mc L [facility] Red Blood Cell 4.53 4.00 - 5.21 x10(6)/mc L [facility] Hemoglobin 14.3 11.7 - 15.5 g/dL [facility] Hematocrit 44.5 35.7 - 45.8 % [facility] Mean Cell Volume 98.2(H) 82.6 - 94.4 fL [facility] Mean Cell Hemoglobin 31.6 27.1 - 32.0 pg [facility] Mean Cell Hemoglobin Concentration 32.1 31.7 - 35.0 g/dL [facility] Platelet 226 145 - 357 x10(3)/mc L [facility] RDW Standard Deviation 52.4(H) 37.0 - 46.0 fL [facility] RDW coefficient of variation 14.4(H) 11.5 - 14.1 % [facility] Mean Platelet Volume 9.4 7.6 - 12.9 fL [facility] NRBC% auto 0.0 % [facility] NRBC Absolute 0.000 0.000 - 0.000 x10(3)/mc L [facility] Blood 07/13/2023 12:3 8 PM EST 07/13/2023 12:43 PM EST Narrative Resulting Agency Comment Spec In Lab Priya Charles APRN HEMATOLOGY ORDER MORENO [facility] [place] [address] * Iron and TIBC (07/13/2023 12:38 PM EST) Iron 74 30 - 150 mcg/dL [facility] TIBC 344 250 - 450 mcg/dL [facility] Iron Saturation 22 20 - 50 % [facility] Blood 07/13/2023 12:3 8 PM EST 07/13/2023 12:43 PM EST Narrative Resulting Agency Comment Spec In Lab Priya Charles APRN CHEMISTRY ORDERA BLES Performing Organization Address [facility] de Phone Number [facility] [place] [place] [address] * PTH (07/13/2023 12:38 PM EST) Parathyroid Hormone 46 15 - 65 pg/mL [facility] Blood 07/13/2023 12:3 8 PM EST 07/13/2023 12:43 PM EST Narrative Resulting Agency Comment Spec In Lab Priya Charles APRN CHEMISTRY ORDERA BLES Performing Organization Address [facility] de Phone Number [facility] [place] [address] * (ABNORMAL) Vitamin B1, whole blood (07/13/2023 12:38 PM EST) Vit B1 Lvl Wb (NOVEMBER) 189(H) 70 - 180 nmol/L [facility] Comment: ADDITIONAL INFORMATION This test was developed and its performance characteristics determined by [facility] in a manner consistent with CLIA requirements. This test has not been cleared or approved by the U.S. Food and Drug Administration. Test Performed by: [facility] - [address] [address] Rn Urgent Care: Skinny Reyes M.D. Ph.D.; CLIA# [id number] Blood 07/13/2023 12:3 8 PM EST 07/14/2023 9:55 AM EST Narrative Resulting Agency Comment Spec In Lab Priya Charles APRN LAB SEND OUT ORD ERABLES Performing Organization Address [facility] Co de Phone Number [facility] [place] [address] * (ABNORMAL) Vitamin B12 (07/13/2023 12:38 PM EST) Vitamin B12 1,754(H) 232 - 1,245 pg/mL [facility] Blood 07/13/2023 12:3 8 PM EST 07/13/2023 12:43 PM EST Narrative Resulting Agency Comment Spec In Lab Priya Charles APRN CHEMISTRY ORDERA BLES [facility] [place] [place] [address] * Vitamin D, 25-Hydroxy (07/13/2023 12:38 PM EST) Vitamin D Total 25 OH 56 21 - 100 ng/mL [facility] Vit D Interp Sufficient [facility] Blood 07/13/2023 12:3 8 PM EST 07/13/2023 12:43 PM EST Narrative Resulting Agency Comment Spec In Lab Priya Charles APRN CHEMISTRY ORDERA BLES Performing Organization Address City/[facility]/ZIP Co de Phone Number [facility] [address] documented in this encounter Visit Diagnoses Diagnosis S/P gastric bypass Bariatric surgery status Disorder of iron metabolism Other disorders of iron metabolism Intestinal malabsorption, unspecified type documented in this encounter Care Teams Grease Refining Supervisor Relationship Specialty Start Date End Date Hoang Castellanos APRN [address] [place] [address] PCP - General Family Medicine 03/12/20 documented as of this encounter
--- OUTSIDE RECORDS SUMMARY | 2024-08-07 14:04 | XMS_ITS | Encounter Summary ---
Author Organization [facility] Address [facility] [place] [address] Care Team Providers Care Roll Up Operator Name Role Phone Hoang Castellanos APRN Primary Care Provider Encounter Details Date Type Department Care Team (Late st Contact Info) Description 04/19/2022 11:00 AM EDT Home Care Visit [facility] for Care [address] [place] [phone] Kimberly Austin, ALLIGATOR SHEAR OPERATOR LT DIRECTOR BUSINESS INTEGRATION HOME VISIT Social History Tobacco Use Types [...] Care Plan Visit Details Visit Type -LTC DIRECTOR BUSINESS INTEGRATION Home Vis it Discipline -Home Health Aide Problems Problem Description Start Date Status Goals Interve ntions A Required Screenings Disciplines: [facility] 03/25/2022 Active 1 goal linked to scheduled/documente d intervention 1 goal intervention scheduled/documente d in this visit Other Disciplines: [facility] 03/25/2022 Active 1 goal linked to scheduled/documente d intervention 1 goal intervention scheduled/documente d in this visit House Keeping Disciplines: [facility] 03/25/2022 Active 1 goal linked to scheduled/documente d intervention 9 goal interventions scheduled/documente d in this visit Personal Care Disciplines: [facility] 03/25/2022 Active 1 goal linked to [...] refused documented in this encounter Care Teams Roll Up Operator Relationship Specialty Start Date End Date Hoang Castellanos, SOFTWARE ENGINEERING ANALYST [address] [place] [address] PCP - General Family Medicine 03/12/20 documented as of this encounter
--- OUTSIDE RECORDS SUMMARY | 2024-08-07 14:04 | XMS_ITS | Encounter Summary ---
Author Organization [facility] [address] Care Team Providers Care Paper And Pulp Mill Worker Name Role Phone Hoang Castellanos APRN Primary Care Provider Reason for Visit * Reason Comments Medication Refill Encounter Details Date Type Department Care Team (Late st Contact Info) Description 05/07/2022 Refill Primary Care at [facility] [address] [facility] [place] [phone] Hoang Castellanos APRN [address] [place] [address] Social History Tobacco Use Types Packs/Day Years [...] Kimberly M [facility] None 05/20/2022 8:00 AM [facility] DX ROOM 2 MH Xray [facility] Rad 05/20/2022 9:00 AM Freddy Dolan PA [facility] [id number] [facility] 05/20/2022 To Be Determined Norman, [...] None 06/23/2022 To Be Determined Kimber[facility] Austin [facility] None If no appointment recommendation at [...] on filedocumented in this encounter Care Teams Paper And Pulp Mill Worker Relationship Specialty Start Date End Date Hoang Castellanos APRN [address] [place] [address] PCP - General Family Medicine 03/12/20 documented as of this encounter
--- OUTSIDE RECORDS SUMMARY | 2024-08-07 14:04 | XMS_ITS | Encounter Summary ---
Author Organization [facility] Address [facility] [place] [address] Care Team Providers Care Surg Rn Name Role Phone Hoang Castellanos APRN Primary Care Provider Encounter Details Date Type Department Care Team (Late st Contact Info) Description 04/21/2022 11:00 AM EDT Home Care Visit [facility] for Care [address] [place] [phone] Kimberly Austin, FOOT CASTER LT EXTENSION SERVICE SUPERVISOR HOME VISIT Social History Tobacco Use [...] Care Plan Visit Details Visit Type -LTC EXTENSION SERVICE SUPERVISOR Home Vis it Discipline -Home Health Aide Problems Problem Description Start Date Status Goals Interve ntions A Required Screenings Disciplines: [facility] 03/25/2022 Active 1 goal linked to scheduled/documente d intervention 1 goal intervention scheduled/documente d in this visit Other Disciplines: [facility] 03/25/2022 Active 1 goal linked to scheduled/documente d intervention 1 goal intervention scheduled/documente d in this visit House Keeping Disciplines: [facility] 03/25/2022 Active 1 goal linked to scheduled/documente d intervention 9 goal interventions scheduled/documente d in this visit Personal Care Disciplines: [facility] 03/25/2022 Active 1 goal linked to [...] clean-up of patient's environment as directed Completed [facility] Description: [facility] kitchen area Problem:House Keeping Goal:Aide to assist [...] refused documented in this encounter Care Teams Surg Rn Relationship Specialty Start Date End Date Hoang Castellanos, CELL LEAD [address] [place] [address] PCP - General Family Medicine 03/12/20 documented as of this encounter
--- OUTSIDE RECORDS SUMMARY | 2024-08-07 14:04 | XMS_ITS | Encounter Summary ---
Author Organization [facility] Address [facility] [place] [address] Care Team Providers Care Smt Technician Name Role Phone Hoang Castellanos APRN Primary Care Provider Encounter Details Date Type Department Care Team (Late st Contact Info) Description 04/30/2022 11:00 AM EDT Home Care Visit [facility] for Care [address] [place] [phone] Kimberly Austin, [employer] WEBSPHERE COMMERCE CONSULTANT LT OYSTER FARMER HOME VISIT Social History Tobacco Use Types [...] Care Plan Visit Details Visit Type -LTC OYSTER FARMER Home Vis it Discipline -Home Health Aide Problems Problem Description Start Date Status Goals Interve ntions A Required Screenings Disciplines: [facility] 03/25/2022 Active 1 goal linked to scheduled/documente d intervention 1 goal intervention scheduled/documente d in this visit Other Disciplines: [facility] 03/25/2022 Active 1 goal linked to scheduled/documente d intervention 1 goal intervention scheduled/documente d in this visit House Keeping Disciplines: [facility] 03/25/2022 Active 1 goal linked to scheduled/documente d intervention 9 goal interventions scheduled/documente d in this visit Personal Care Disciplines: [facility] 03/25/2022 Active 1 goal linked to [...] N/A documented in this encounter Care Teams Smt Technician Relationship Specialty Start Date End Date Hoang Castellanos APRN [address] [place] [place] [address] PCP - General Family Medicine 03/12/20 documented as of this encounter
--- OUTSIDE RECORDS SUMMARY | 2024-08-07 14:04 | XMS_ITS | Encounter Summary ---
Author Organization [facility] Address [facility] [place] [address] Care Team Providers Care Nut Tightener Name Role Phone Hoang Castellanos APRN Primary Care Provider Reason for Visit * Reason Comments Medication Refill Encounter Details Date Type Department Care Team (Late st Contact Info) Description 05/07/2022 [place] [address] Michael Espinoza MD [facility] [place] [address] Social History Tobacco Use Types Packs/Day Years [...] on filedocumented in this encounter Care Teams Nut Tightener Relationship Specialty Start Date End Date Hoang Castellanos APRN [address] [place] [address] PCP - General Family Medicine 03/12/20 documented as of this encounter
--- OUTSIDE RECORDS SUMMARY | 2024-08-07 14:04 | XMS_ITS | Encounter Summary ---
Author Organization [place] [address] Care Team Providers Care Labels Molder Name Role Phone Hoang Castellanos APRN Primary Care Provider Reason for Visit * Reason Comments Establish Care Encounter Details Date Type Department Care Team (Late st Contact Info) Description 07/13/2023 1:30 PM EST Office [place] [address] Jessica Mcfarland APRN [facility] [place] [address] Meena Hastings, JEREMY S/P gastric bypass; Disorder [...] Mcfarland APRN - 07/13/2023 1:30 PM EST [facility] senior technical support analyst Lela [phone] and [place] [phone] Dietitians: [phone] Surgeons/ nurse practitioners: [phone] Nurse line: [phone] Dear Jeannie, Please see your electronic medical record note from today for details we discussed at your visit. Below is some additional general information that you may find helpful. Testing: It would be helpful if you can have your lab work drawn a couple days before your visit guerline [facility] facility so the results are available at the time of your follow up visit. If you have labwork done by your primary healthcare project manager before that date, please have a copy sent to the Bariatric Surgery Program. Please call/send my Advaction message if you have not heard from us within 2 weeks of having labs work done. Here's the link to [facility] Lab hours and locations: [email or web address] Next visit: Follow up visits are done at 4 months and 12 months after surgery and yearly thereafter. Some patients are evaluated on a more frequent basis. Please call [phone] if you do not receive an appointment [...] Blow dry area on low setting with hairpiece stylist. Avoid excessive heat and/or sweating as friction [...] such as Ibuprofen (Advil), Aleve (Naproxen), Excedrin, Aimee-Howells should be used sparingly after gastric bypass, [...] Our post surgery support group meets at [facility] on the first Tuesday of every month from 1:00 PM-2:00 PM. You can attend online or in person. Use the following link to attend online: [email or web address] Nutrition and Activity apps- Baritastic, My Fitness Pal, Lose It, My Plate Internet resources: www.Vividolabs wwwRockerbox www.bariatriceaScholarPRO.Physcient www.Content Syndicate: Words on Demand.Physcient/blog [facility] facebook page: [email or web address]://www.facebook.[email or web address]/[email or web address]UM[facility]ric[facility]gery Books & Magazines: - Recipes for Life After Weight Loss Surgery by Suly Cruz - Shrink Yourself by Dr Juan Carlos Carlos - Eating Well - www.BrandBeau.Physcient - Cooking Light- www.cookinglight.Physcient Anxiety: The Happiness Trap by Efren Richey The Mindfulness and acceptance workbook for anxiety By Jose A Acosta. Mindful eating: What are you Hungry For? By Ricardo Murray The Mindful Diet by Katerine Nelson and the [facility] group. Emotional eating: End Emotional Eating by Tamar Russo Calming the Emotional Storm Jessica Hayes documented in this encounter Progress Notes * Jessica Mcfarland APRN - 07/13/2023 1:30 PM EST [place] [address] Reason for visit: Bariatric Surgery follow up visit Subjective: Jeannie Rico is s/p partitioned, non-divided Genesis en Y gastric bypass on 05/12/[address] Trejo. Last seen in 2019. Jeannie is reestablishing care for support with supplements and diet. Jennifer lives in an assisted living facility ([facility]). She is seeking for our [...] has prescribed Miralax and sees her at [facility]). Taking PRN omeprazole and daily famotidine. Endorses GERD (rare regurgitation and heartburn unsure of frequency). Supplements: Per list from [place] No MV B12 1000 mcg daily Blood [...] Michela and discussed meal plan with Daniella (nursing instructor), who states gluten free meal plan has been discontinued. Discussed risks associated with alcohol intake after bariatric surgery (increased risk of alcohol misuse/abuse, increased risk of ulcers, empty calorie). Patient has met with housing management officer today, please see note for additional details/dietary [...] lab results as above. Labs faxed to [facility] for PCP review. Reviewed recommended vitamin/mineral supplements- recommendations sent to [facility] (by JEREMY ramey reviewed recommendations with [facility] by phone) and shared with PCP via EDH. As below: These are the bariatric surgery supplements we recommend: -Multivitamin with iron and minerals twice a day (the recommendation for all bariatric surgery patients is 2x the RICE DRYER MECHANIC) -Continue B12 1000 mcg once a day [...] If labwork is done by the primary healthcare project manager: please send a copy to the Bariatric Surgery Program, General Surgery Clinic, [facility], or fax [phone] Meena Lewis, RD - 07/13/2023 1:30 PM [...] cost. Advised pt that I would call [facility] facility to review vitamin and mineral supplement recommendations Pt also reported that she was instructed to follow a gluten-free diet at the [facility] for inflammation. Advised pt that I would also discuss her dietary restrictions with the [facility] Outside Sales Account Executive. Social History: Has a supportive rn case manager. OBJECTIVE: Type of Surgery: non-divided [...] 07/13/23 203# 64% 34.8 23 years post-op [place] Body Weight (based on BMI of 25): [...] to follow a gluten-free diet at the [facility] for inflammation, advised pt that I woulddiscuss her dietary restrictions with the [facility] Outside Sales Account Executive to further understand the reasoning for the [...] listed above. Advised pt that Iwould call [facility] facility to review vitamin and [...] 25 OH 56 21 - 100 ng/mL [facility] Vit D Interp Sufficient [facility] Blood 07/13/2023 12:3 8 PM EST 07/13/2023 12:43 PM EST Narrative Resulting Agency Comment Spec In Lab Priya Charles POSITION CLASSIFICATION MANAGER CHEMISTRY ORDERA BLES [facility] [place] [address] * (ABNORMAL) Vitamin B12 (07/13/2023 12:38 PM EST) Vitamin B12 1,754(H) 232 - 1,245 pg/mL [facility] Blood 07/13/2023 12:3 8 PM EST 07/13/2023 12:43 PM EST Narrative Resulting Agency Comment Spec In Lab Priya Charles APRN CHEMISTRY ORDERA BLES Performing Organization Address City/[facility] Co de Phone Number [facility] [address] * (ABNORMAL) Vitamin B1, whole blood (07/13/2023 12:38 PM EST) Vit B1 Lvl Wb (NOVEMBER) 189(H) 70 - 180 nmol/L [facility] Comment: ADDITIONAL INFORMATION This test was developed and its performance characteristics determined by [facility] in a manner consistent with CLIA requirements. This test has not been cleared or approved by the U.S. Food and Drug Administration. Test Performed by: [facility] [place] [address] Ferry Pilot: Skinny Reyes M.D. Ph.D.; CLIA# [id number] Blood 07/13/2023 12:3 8 PM EST 07/14/2023 9:55 AM EST Narrative Resulting Agency Comment Spec In Lab Priya Charles APRN LAB SEND OUT ORD ERABLES Performing Organization Address [facility]/ZIP Co de Phone Number [facility] [address] * PTH (07/13/2023 12:38 PM EST) Parathyroid Hormone 46 15 - 65 pg/mL [facility] Blood 07/13/2023 12:3 8 PM EST 07/13/2023 12:43 PM EST Narrative Resulting Agency Comment Spec In Lab Priya M [place] POSITION CLASSIFICATION MANAGER CHEMISTRY ORDERA BLES [facility] [address] * Iron and TIBC (07/13/2023 12:38 PM EST) Iron 74 30 - 150 mcg/dL [facility] TIBC 344 250 - 450 mcg/dL [facility] Iron Saturation 22 20 - 50 % [facility] Blood 07/13/2023 12:3 8 PM EST 07/13/2023 12:43 PM EST Narrative Resulting Agency Comment Spec In Lab Priya Charles APRN CHEMISTRY ORDERA BLES Performing Organization Address City/[facility] Co de Phone Number [facility] [address] * (ABNORMAL) Hemogram (07/13/2023 12:38 PM EST) White Blood Cell 11.1(H) 4.0 - 9.5 x10(3)/mc L [facility] Red Blood Cell 4.53 4.00 - 5.21 x10(6)/mc L [facility] Hemoglobin 14.3 11.7 - 15.5 g/dL [facility] Hematocrit 44.5 35.7 - 45.8 % [facility] Mean Cell Volume 98.2(H) 82.6 - 94.4 fL [facility] Mean Cell Hemoglobin 31.6 27.1 - 32.0 pg [facility] Mean Cell Hemoglobin Concentration 32.1 31.7 - 35.0 g/dL [facility] Platelet 226 145 - 357 x10(3)/mc L [facility] RDW Standard Deviation 52.4(H) 37.0 - 46.0 fL [facility] RDW coefficient of variation 14.4(H) 11.5 - 14.1 % [facility] Mean Platelet Volume 9.4 7.6 - 12.9 fL [facility] NRBC% auto 0.0 % [facility] NRBC Absolute 0.000 0.000 - 0.000 x10(3)/mc L [facility] Blood 07/13/2023 12:3 8 PM EST 07/13/2023 12:43 PM EST Narrative Resulting Agency Comment Spec In Lab Priya Trinidad [place] SAM HEMATOLOGY ORDER MORENO Performing Organization Address City/[facility] Co de Phone Number [facility] [address] * Folate, serum (07/13/2023 12:38 PM EST) Folate 16.5 4.8 - 24.2 ng/mL [facility] Blood 07/13/2023 12:3 8 PM EST 07/13/2023 12:43 PM EST Narrative Resulting Agency Comment Spec In Lab Priya Ricoliher POSITION CLASSIFICATION MANAGER CHEMISTRY ORDERA BLES Performing Organization Address [facility] Co de Phone Number [facility] [address] * Ferritin (07/13/2023 12:38 PM EST) Ferritin 46 11 - 328 ng/mL [facility] Comment: Please note that as of 06/29/2023, the reference intervals for Ferritin have been updated. Blood 07/13/2023 12:3 8 PM EST 07/13/2023 12:43 PM EST Narrative Resulting Agency Comment Spec In Lab Priya Trinidad [place] SAM CHEMISTRY ORDERA BLES Performing Organization Address [facility] Co de Phone Number [facility] [address] * (ABNORMAL) Comprehensive metabolic panel (non-fasting) (07/13/2023 12:38 PM EST) Glucose 131 65 - 199 mg/dL [facility] Comment:Diabetes: >=200 mg/d L plus symptoms Blood Urea Nitrogen 24(H) 8 - 18 mg/dL [facility] Creatinine 0.69(L) 0.70 - 1.20 mg/dL [facility] Sodium 139 135 - 145 mmol/L [facility] Potassium 4.5 3.5 - 5.0 mmol/L [facility] Comment: Please note: ??Patients with WBC >100,000 may have falsely elevated Potassium levels. ??For accurate Potassium quantification in these patients send serum separator tube (gold top) for subsequent determinations. ??Contact the Clinical Chemistry Laboratory if there are any questions. Chloride 100 98 - 107 mmol/L [facility] Carbon Dioxide 30 22 - 31 mmol/L [facility] Anion Gap 9 5 - 15 mmol/L [facility] Calcium 10.0 8.5 - 10.5 mg/dL [facility] Protein, Total 6.9 6.1 - 8.0 g/dL [facility] Albumin 4.4 3.2 - 5.2 g/dL [facility] Aspartate Aminotransferase 20 0 - 30 unit/L [facility] Alanine Aminotransferase 21 0 - 30 unit/L [facility] Alkaline Phosphatase 97 35 - 105 unit/L [facility] Bilirubin, Total <0.2(L) 0.2 - 1.3 mg/dL [facility] Est Glomerular Filtration Rate 97 >=60 mL/min/1. 73 m?? 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
--- OUTSIDE RECORDS SUMMARY | 2024-08-07 14:04 | XMS_ITS | Encounter Summary ---
Author Organization [facility] [place] [address] Care Team Providers Care 2Nd Grade Teacher Name Role Phone Hoang Castellanos APRN Primary Care Provider Encounter Details Date Type Department Care Team (Late st Contact Info) Description 12/31/2022 Orders [place] [address] Priya Charles, BONUS CLERK [facility] [place] [address] S/P gastric bypass; Disorder of iron metabolism; [...] nonabsorption documented in this encounter Care Teams 2Nd Grade Teacher Relationship Specialty Start Date End Date Hoang Castellanos APRN [address] [place] [address] PCP - General Family Medicine 03/12/20 documented as of this encounter
--- OUTSIDE RECORDS SUMMARY | 2024-08-07 14:04 | XMS_ITS | Encounter Summary ---
Author Organization [facility] Address [facility] [place] [address] Care Team Providers Care Brick Siding Applicator Name Role Phone Hoang Castellanos APRN Primary Care Provider Encounter Details Date Type Department Care Team (Late st Contact Info) Description 04/16/2022 8:00 AM EDT Home Care Visit [facility] for Care [address] [place] [phone] Kimberly Austin, NUCLEAR EQUIPMENT RESEARCH ENGINEER LT STRIP CATCHER HOME VISIT Social History Tobacco Use Types [...] Care Plan Visit Details Visit Type -LTC STRIP CATCHER Home Vis it Discipline -Home Health Aide Problems Problem Description Start Date Status Goals Interve ntions A Required Screenings Disciplines: [facility] 03/25/2022 Active 1 goal linked to scheduled/documente d intervention 1 goal intervention scheduled/documente d in this visit Other Disciplines: [facility] 03/25/2022 Active 1 goal linked to scheduled/documente d intervention 1 goal intervention scheduled/documente d in this visit House Keeping Disciplines: [facility] 03/25/2022 Active 1 goal linked to scheduled/documente d intervention 9 goal interventions scheduled/documente d in this visit Personal Care Disciplines: [facility] 03/25/2022 Active 1 goal linked to [...] [facility] KITCHEN AREA Description: [facility] kitchen area Problem:House Keeping Goal:Aide to assist [...] refused documented in this encounter Care Teams Brick Siding Applicator Relationship Specialty Start Date End Date Hoang Castellanos, OTR TRUCK DRIVER [address] [place] [address] PCP - General Family Medicine 03/12/20 documented as of this encounter
--- OUTSIDE RECORDS SUMMARY | 2024-08-07 14:04 | XMS_ITS | Encounter Summary ---
Author Organization [facility] [place] [address] Care Team Providers Care Inventory Control Specialist Name Role Phone Hoang Castellanos APRN Primary Care Provider Reason for Visit * Reason Comments Medication Refill Encounter Details Date Type Department Care Team (Late st Contact Info) Description 04/12/2022 Refill Primary Care at [facility] [address] [facility] [place] [address] Hoang Castellanos APRN [address] [place] [address] Social History Tobacco Use Types Packs/Day Years [...] PM EDT Last Prescription Fill Date: 12/01/2021- [employer] Number Dispensed and Refills: 1 puff Last [...] on filedocumented in this encounter Care Teams Inventory Control Specialist Relationship Specialty Start Date End Date Hoang Castellanos APRN [address] [place] [address] PCP - General Family Medicine 03/12/20 documented as of this encounter
--- OUTSIDE RECORDS SUMMARY | 2024-08-07 14:04 | XMS_ITS | Encounter Summary ---
Author Organization [facility] Address [facility] [place] [address] Care Team Providers Care Lacquer Pin Press Operator Name Role Phone Hoang Castellanos APRN Primary Care Provider Encounter Details Date Type Department Care Team (Late st Contact Info) Description 04/20/2022 Home Care Visit [facility] for Care [address] [place] [phone] Farrah Jama TELEPHONE ENCOUNTER Social History [...] 12:46 PM EDTSPOKE TO COA CASE MANAGE [employer]ITAT [facility] [facility] CL[facility]. PER BRITTA CLIENT IS VERY HAPPY WITH STEWARD DISHWASHER. SHE DOES A WONDERFUL JOB, PER BRITTA NEED TO ADD COOKING TO THE CARE GLADYS THE STEWARD DISHWASHER ONCE IN AWHILE WILL MAKE MEALS FOR THE CLIENT. BRITTA ALSO INDICATED THAT CLIENT WOULD LIKE 3 HOURS EACH DAY IF POSSIBLE. I LET BRITTA KNOW THAT I WOULD LOOK AT THE STEWARD DISHWASHER'S SCHEDULE AND SEE WHAT WE COULD DO. OTHER THAN THAT, BRITTA INDICATED THE CLIENT HAS NO QUESTIONS OR CONCERNS AT THIS TIME. documented in this encounter Plan of Treatment Not on file documented as of this encounter Visit Diagnoses Not on filedocumented in this encounter Care Teams Lacquer Pin Press Operator Relationship Specialty Start Date End Date Hoang Castellanos APRN [address] [place] [address] PCP - General Family Medicine 03/12/20 documented as of this encounter
--- OUTSIDE RECORDS SUMMARY | 2024-08-07 14:04 | XMS_ITS | Encounter Summary ---
Author Organization [facility] [place] [address] Care Team Providers Care Cable Layer Name Role Phone Hoang Castellanos APRN Primary Care Provider Encounter Details Date Type Department Care Team (Late st Contact Info) Description 06/04/2022 Telephone Primary Care at [facility] [address] [facility] [place] [phone] Jeannie Luciano, RN Social History Tobacco Use [...] AM EST Message received from Kasia at [facility] where Jeannie has moved to. They received a sign medication list but Jeannie arrived with 2 medications not on our list. They are Depakote ER 250mg and Prozac 20mg. She asked if Jeannie is supposed to be on both Sertraline and Prozac. Returned call to [facility] and spoke with felicita Farr who [...] filedocumented in this encounter Care Teams Cable Layer Relationship Specialty Start Date End Date Hoang Castellanos APRN [address] [place] [address] PCP - General Family Medicine 03/12/20 documented as of this encounter
--- OUTSIDE RECORDS SUMMARY | 2024-08-07 14:04 | XMS_ITS | Encounter Summary ---
Author Organization [facility] Address [facility] [place] [address] Care Team Providers Care Log Preparer Name Role Phone Hoang Castellanos APRN Primary Care Provider Encounter Details Date Type Department Care Team (Late st Contact Info) Description 05/03/2022 12:00 PM EDT Home Care Visit [facility] for Care [address] [place] [phone] Kimberly Austin, BANK ANALYST LT ADVERTISING INSERTER HOME VISIT Social History Tobacco Use Types [...] Care Plan Visit Details Visit Type -LTC ADVERTISING INSERTER Home Vis it Discipline -Home Health Aide Problems Problem Description Start Date Status Goals Interve ntions A Required Screenings Disciplines: [facility] 03/25/2022 Active 1 goal linked to scheduled/documente d intervention 1 goal intervention scheduled/documente d in this visit Other Disciplines: [facility] 03/25/2022 Active 1 goal linked to scheduled/documente d intervention 1 goal intervention scheduled/documente d in this visit House Keeping Disciplines: [facility] 03/25/2022 Active 1 goal linked to scheduled/documente d intervention 9 goal interventions scheduled/documente d in this visit Personal Care Disciplines: [facility] 03/25/2022 Active 1 goal linked to [...] refused documented in this encounter Care Teams Log Preparer Relationship Specialty Start Date End Date Hoang Castellanos, DISTRICT ADVISER [address] [place] [address] PCP - General Family Medicine 03/12/20 documented as of this encounter
--- OUTSIDE RECORDS SUMMARY | 2024-08-07 14:04 | XMS_ITS | Encounter Summary ---
Author Organization [facility] Address [facility] [address] Care Team Providers Care Distribution Engineer Name Role Phone Hoang Castellanos APRN Primary Care Provider Encounter Details Date Type Department Care Team (Late st Contact Info) Description 05/21/2022 [facility] [address] [place] [phone] Farrah Jama [facility] [place] DISCHARGE Social History Tobacco Use [...] on filedocumented in this encounter Care Teams Distribution Engineer Relationship Specialty Start Date End Date Hoang Castellanos, SAM [address] [place] [address] PCP - General Family Medicine 03/12/20 documented as of this encounter
--- OUTSIDE RECORDS SUMMARY | 2024-08-07 14:04 | XMS_ITS | Encounter Summary ---
Author Organization [facility] [place] [address] Care Team Providers Care Plastic Bubble Packer Name Role Phone Hoang Castellanos APRN Primary Care Provider Encounter Details Date Type Department Care Team (Late st Contact Info) Description 05/20/2022 Telephone Primary Care at [facility] [place] [phone] Jeannie Luciano, RN Social History Tobacco Use [...] patient anyways- assuming it could be over [facility]? * Telephone Encounter - Jeannie Luciano RN - 05/20/2022 4:01 PM EDT Message received from Kimberly with [employer] asking if Hoang Castellanos APRN would complete paperwork for her to continue in the LTC Choices for Care with the [facility]. Jeannie will be moving very soon [...] on filedocumented in this encounter Care Teams Plastic Bubble Packer Relationship Specialty Start Date End Date Hoang Castellanos APRN [address] [place] [address] PCP - General Family Medicine 03/12/20 documented as of this encounter
--- OUTSIDE RECORDS SUMMARY | 2024-08-07 14:04 | XMS_ITS | Encounter Summary ---
Author Organization [place] [address] Care Team Providers Care Bow Making Machine Operator Name Role Phone Hoang Castellanos APRN Primary Care Provider Encounter Details Date Type Department Care Team (Latest Contact Info) Description 05/13/2022 9:45 AM EDT Clinical Support Primary Care at [facility] [place] [address] Need for vaccination Social History [...] - 05/13/2022 9:45 AM EDT Flu Vaccine [id number] Age Considerations Vaccine Name Pediatric [] 6 [...] had any of the following: History of Guillian-Grapevine Syndrome, allergy to eggs, or allergicreaction to [...] disease documented in this encounter Care Teams Bow Making Machine Operator Relationship Specialty Start Date End Date Hoang Castellanos, POWDER WORKER TNT [address] [place] [address] PCP - General Family Medicine 03/12/20 documented as of this encounter
--- OUTSIDE RECORDS SUMMARY | 2024-08-07 14:04 | XMS_ITS | Encounter Summary ---
Author Organization [facility] Address [facility] [place] [address] Care Team Providers Care Miller Helper Name Role Phone Hoang Castellanos APRN [...] on filedocumented in this encounter Care Teams Miller Helper Relationship Specialty Start Date End Date Hoang Castellanos, OUTPATIENT CODER [address] [place] [address] PCP - General Family Medicine 03/12/20 documented as of this encounter
--- OUTSIDE RECORDS SUMMARY | 2024-08-07 14:04 | XMS_ITS | Encounter Summary ---
Author Organization [facility] Address [place] [address] Care Team Providers Care Pediatric Physical Therapy Assistant Name Role Phone Hoang Castellanos APRN Primary Care Provider Encounter Details Date Type Department Care Team (Late st Contact Info) Description 05/04/2022 9:00 AM EDT Home Care Visit [facility] [address] [place] [phone] Kimberly Austin, PRODUCT ADVISOR LT DIGITAL STRATEGY SPECIALIST HOME VISIT Social History Tobacco Use [...] Care Plan Visit Details Visit Type -LTC DIGITAL STRATEGY SPECIALIST Home Vis it Discipline -Home Health Aide Problems Problem Description Start Date Status Goals Interve ntions A Required Screenings Disciplines: [facility] 03/25/2022 Active 1 goal linked to scheduled/documente d intervention 1 goal intervention scheduled/documente d in this visit Other Disciplines: [facility] 03/25/2022 Active 1 goal linked to scheduled/documente d intervention 1 goal intervention scheduled/documente d in this visit House Keeping Disciplines: [facility] 03/25/2022 Active 1 goal linked to scheduled/documente d intervention 9 goal interventions scheduled/documente d in this visit Personal Care Disciplines: [facility] 03/25/2022 Active 1 goal linked [...] clean-up of patient's environment as directed Completed [facility] Description: [facility] kitchen area Problem:House Keeping Goal:Aide [...] refused documented in this encounter Care Teams Pediatric Physical Therapy Assistant Relationship Specialty Start Date End Date Hoang Castellanos APRN [address] [place] [address] PCP - General Family Medicine 03/12/20 documented as of this encounter
--- OUTSIDE RECORDS SUMMARY | 2024-08-07 14:04 | XMS_ITS | Encounter Summary ---
Author Organization [facility] [place] [address] Care Team Providers Care Geographic Information Systems Manager Name Role Phone Hoang Castellanos APRN Primary Care Provider [phone] Reason for Visit * Consultation (Routine) - Closed Specialty Diagnoses / Procedures Referred By Vanita t Referred To Contact Hematology and Oncology Diagnoses Macrocytosis Anemia, unspecified type Jolly Davenport APRN [address] [place] [address] [facility] Hem Onc [address] [place] [address] Referral ID Status Reason Start Date Expiration Date V isits Requested Visits Authorized [id number] Closed Consult, Test & Treat PCP Updated and/or Approved 03/31/2023 03/30/2024 12 12 Encounter Details Date Type Department Care Team (Late st Contact Info) Description 04/14/2023 3:00 PM EDT Office Visit Hematology/Oncology at [address] [phone] Matthew Ortiz MD [facility] DR HEMATOLOGY [place] [address] Macrocytosis without anemia Social History [...] [place] [facility] [place] [facility] [place] No 04/14/2023 Sex and Gender [...] available records including old computer records at [facility] The patient has multiple medical problems [...] Rfl: 3 Miconazole Powder, 1 Application by [facility].(Non-Drug; Combo Route) route 2 times daily., Disp: [...] organs documented in this encounter Care Teams Geographic Information Systems Manager Relationship Specialty Start Date End Date Hoang Castellanos, MIDDLE SCHOOL HUMANITIES TEACHER [address] [place] [address] PCP - General Family Medicine 03/12/20 documented as of this encounter
--- OUTSIDE RECORDS SUMMARY | 2024-08-07 14:04 | XMS_ITS | Encounter Summary ---
Author Organization [facility] Address [facility] [place] [address] Care Team Providers Care Traveling Repair Accountant Name Role Phone Hoang Castellanos APRN Primary Care Provider Reason for Visit * Reason Onset Date Comments Prior Authorization 04/20/2022 Spiriva Resp imat 2.5mcg Encounter Details Date Type Department Care Team (Late st Contact Info) Description 04/20/2022 Telephone Primary Care at [facility] [address] [place] [phone] Gautam Davidson Prior Authorization (Spiriva Respimat 2.5mcg) [...] Prior Authorization Request received via: Fax from [employer]: Medicare Part D Renewed previous Prior [...] filedocumented in this encounter Care Teams Traveling Repair Accountant Relationship Specialty Start Date End Date Hoang Castellanos, ENGINEERING PATTERNMAKER [address] [place] [address] PCP - General Family Medicine 03/12/20 documented as of this encounter
--- OUTSIDE RECORDS SUMMARY | 2024-08-07 14:04 | XMS_ITS | Encounter Summary ---
Author Organization [facility] Address [facility] [place] [address] Care Team Providers Care Registered Nurse Cardiac Telemetry Name Role Phone Hoang Castellanos APRN Primary Care Provider [phone] Encounter Details Date Type Department Care Team (Late st Contact Info) Description 04/28/2022 12:00 PM EDT Home Care Visit [facility] for Care [address] [place] [phone] Kimberly Austin, PHOTORADIO OPERATOR LT MARINE ENGINE DRIVER HOME VISIT Social History Tobacco Use Types [...] Care Plan Visit Details Visit Type -LTC MARINE ENGINE DRIVER Home Vis it Discipline -Home Health Aide Problems Problem Description Start Date Status Goals Interve ntions A Required Screenings Disciplines: [facility] 03/25/2022 Active 1 goal linked to scheduled/documente d intervention 1 goal intervention scheduled/documente d in this visit Other Disciplines: [facility] 03/25/2022 Active 1 goal linked to scheduled/documente d intervention 1 goal intervention scheduled/documente d in this visit House Keeping Disciplines: [facility] 03/25/2022 Active 1 goal linked to scheduled/documente d intervention 9 goal interventions scheduled/documente d in this visit Personal Care Disciplines: [facility] 03/25/2022 Active 1 goal linked to scheduled/documente [...] Completed documented in this encounter Care Teams Registered Nurse Cardiac Telemetry Relationship Specialty Start Date End Date Hoang Castellanos, LINTER TENDER [address] [place] [address] PCP - General Family Medicine 03/12/20 documented as of this encounter
--- OUTSIDE RECORDS SUMMARY | 2024-08-07 14:04 | XMS_ITS | Encounter Summary ---
Author Organization [facility] Address [facility] [place] [address] Care Team Providers Care Rn International Name Role Phone Hoang Castellanos APRN Primary Care Provider Encounter Details Date Type Department Care Team (Late st Contact Info) Description 04/13/2022 9:30 AM EDT Home Care Visit [facility] for Care [address] [place] [phone] Kimberly Austin, MANAGER DEMAND LT CARPENTER SUPERVISOR HOME VISIT Social History Tobacco Use [...] Care Plan Visit Details Visit Type -LTC CARPENTER SUPERVISOR Home Vis it Discipline -Home Health Aide Problems Problem Description Start Date Status Goals Interve ntions A Required Screenings Disciplines: [facility] 03/25/2022 Active 1 goal linked to scheduled/documente d intervention 1 goal intervention scheduled/documente d in this visit Other Disciplines: [facility] 03/25/2022 Active 1 goal linked to scheduled/documente d intervention 1 goal intervention scheduled/documente d in this visit House Keeping Disciplines: [facility] 03/25/2022 Active 1 goal linked to scheduled/documente d intervention 9 goal interventions scheduled/documente d in this visit Personal Care Disciplines: [facility] 03/25/2022 Active 1 goal linked [...] refused documented in this encounter Care Teams Rn International Relationship Specialty Start Date End Date Hoang Castellanos, AUTO SERVICE MECHANIC [address] [place] [address] PCP - General Family Medicine 03/12/20 documented as of this encounter
--- OUTSIDE RECORDS SUMMARY | 2024-08-07 14:04 | XMS_ITS | Encounter Summary ---
Author Organization [facility] Address [facility] [place] [address] Care Team Providers Care Spreader Operator Name Role Phone Hoang Castellanos APRN Primary Care Provider Encounter Details Date Type Department Care Team (Late st Contact Info) Description 04/12/2022 1:00 PM EDT Home Care Visit [facility] for Care [address] [place] [phone] Kimberly Austin, MERCERIZING RANGE FEEDER LT CONTINUOUS CHURN BUTTERMAKER HOME VISIT Social History Tobacco Use Types [...] Care Plan Visit Details Visit Type -LTC CONTINUOUS CHURN BUTTERMAKER Home Vis it Discipline -Home Health Aide Problems Problem Description Start Date Status Goals Interve ntions A Required Screenings Disciplines: [facility] 03/25/2022 Active 1 goal linked to scheduled/documente d intervention 1 goal intervention scheduled/documente d in this visit Other Disciplines: [facility] 03/25/2022 Active 1 goal linked to scheduled/documente d intervention 1 goal intervention scheduled/documente d in this visit House Keeping Disciplines: [facility] 03/25/2022 Active 1 goal linked to scheduled/documente d intervention 9 goal interventions scheduled/documente d in this visit Personal Care Disciplines: [facility] 03/25/2022 Active 1 goal linked to [...] refused documented in this encounter Care Teams Spreader Operator Relationship Specialty Start Date End Date Hoang Castellanos, DRY CLEANING MACHINE OPERATOR [address] [place] [address] PCP - General Family Medicine 03/12/20 documented as of this encounter
--- OUTSIDE RECORDS SUMMARY | 2024-08-07 14:04 | XMS_ITS | Encounter Summary ---
Author Organization [facility] Address [facility] [place] [address] Care Team Providers Care Trauma Manager Name Role Phone Hoang Castellanos APRN Primary Care Provider Encounter Details Date Type Department Care Team (Late st Contact Info) Description 04/15/2022 12:00 PM EDT Home Care Visit [facility] for Care [address] [place] [phone] Kimberly Austin, ITEM REPAIR MANAGER LT NUCLEAR WASTE PROCESS OPERATOR HOME VISIT Social History Tobacco Use [...] Care Plan Visit Details Visit Type -LTC NUCLEAR WASTE PROCESS OPERATOR Home Vis it Discipline -Home Health Aide Problems Problem Description Start Date Status Goals Interve ntions A Required Screenings Disciplines: [facility] 03/25/2022 Active 1 goal linked to scheduled/documente d intervention 1 goal intervention scheduled/documente d in this visit Other Disciplines: [facility] 03/25/2022 Active 1 goal linked to scheduled/documente d intervention 1 goal intervention scheduled/documente d in this visit House Keeping Disciplines: [facility] 03/25/2022 Active 1 goal linked to scheduled/documente d intervention 9 goal interventions scheduled/documente d in this visit Personal Care Disciplines: [facility] 03/25/2022 Active 1 goal linked to [...] refused documented in this encounter Care Teams Trauma Manager Relationship Specialty Start Date End Date Hoang Castellanos, DEPUTY COUNTY CLERK [address] [place] [address] PCP - General Family Medicine 03/12/20 documented as of this encounter
--- OUTSIDE RECORDS SUMMARY | 2024-08-07 14:04 | XMS_ITS | Encounter Summary ---
Author Organization [facility] Address [facility] [place] [address] Care Team Providers Care Cook Room Supervisor Name Role Phone Hoang Castellanos APRN Primary Care Provider Encounter Details Date Type Department Care Team (Late st Contact Info) Description 05/06/2022 12:00 PM EDT Home Care Visit [facility] for Care [address] [place] [phone] Kimberly Austin, SAP FICO BUSINESS ANALYST LT SLIDER ASSEMBLER HOME VISIT Social History Tobacco Use Types [...] Care Plan Visit Details Visit Type -LTC SLIDER ASSEMBLER Home Vis it Discipline -Home Health Aide Problems Problem Description Start Date Status Goals Interve ntions A Required Screenings Disciplines: [facility] 03/25/2022 Active 1 goal linked to scheduled/documente d intervention 1 goal intervention scheduled/documente d in this visit Other Disciplines: [facility] 03/25/2022 Active 1 goal linked to scheduled/documente d intervention 1 goal intervention scheduled/documente d in this visit House Keeping Disciplines: [facility] 03/25/2022 Active 1 goal linked to scheduled/documente d intervention 9 goal interventions scheduled/documente d in this visit Personal Care Disciplines: [facility] 03/25/2022 Active 1 goal linked to scheduled/documente [...] [facility] Description: Straighten kitchen area Problem:House [...] refused documented in this encounter Care Teams Cook Room Supervisor Relationship Specialty Start Date End Date Hoang Castellanos, SCHOOL OPERATIONS MANAGER [address] [place] [address] PCP - General Family Medicine 03/12/20 documented as of this encounter
--- OUTSIDE RECORDS SUMMARY | 2024-08-07 14:04 | XMS_ITS | Encounter Summary ---
[place] [address] Care Team Providers Care Bakery Worker Name Role Phone Hoang Castellanos APRN Primary Care Provider Reason for Referral * Consultation (Routine) - Closed Specialty Diagnoses / Procedures Referred By Vanita t Referred To Contact Hematology and Oncology Diagnoses Macrocytosis Anemia, unspecified type Jolly Davenport APRN [address] [place] [address] [facility] Hem Onc [address] [place] [address] Referral ID Status Reason Start Date Expiration Date V isits Requested Visits Authorized [id number] Closed Consult, Test & Treat PCP Updated and/or Approved 03/31/2023 03/30/2024 12 12 Encounter Details Date Type Department Care Team (Latest Contact Info) Description 03/31/2023 Transcribe Orders eDH Incoming Referrals [phone] Jolly Davenport APRN [address] [place], [place] [id number] Macrocytosis; Anemia, unspecified type Social History Tobacco [...] type documented in this encounter Care Teams Bakery Worker Relationship Specialty Start Date End Date Hoang Castellanos, GOLF BALL MOLDER [address] [place] [address] PCP - General Family Medicine 03/12/20 documented as of this encounter
--- OUTSIDE RECORDS SUMMARY | 2024-08-07 14:04 | XMS_ITS | Encounter Summary ---
Author Organization [facility] Address [facility] [place] [address] Care Team Providers Care Manager Of Sales Name Role Phone Hoang Castellanos APRN Primary Care Provider Encounter Details Date Type Department Care Team (Late st Contact Info) Description 04/09/2022 12:00 PM EDT Home Care Visit [facility] for Care [address] [place] [phone] Kimberly Austin, GLOBAL COMPENSATION ANALYST LT CERTIFIED INDOOR ENVIRONMENTALIST HOME VISIT Social History Tobacco Use Types [...] Care Plan Visit Details Visit Type -LTC CERTIFIED INDOOR ENVIRONMENTALIST Home Vis it Discipline -Home Health Aide Problems Problem Description Start Date Status Goals Interve ntions A Required Screenings Disciplines: [facility] 03/25/2022 Active 1 goal linked to scheduled/documente d intervention 1 goal intervention scheduled/documente d in this visit Other Disciplines: [facility] 03/25/2022 Active 1 goal linked to scheduled/documente d intervention 1 goal intervention scheduled/documente d in this visit House Keeping Disciplines: [facility] 03/25/2022 Active 1 goal linked to scheduled/documente d intervention 9 goal interventions scheduled/documente d in this visit Personal Care Disciplines: [facility] 03/25/2022 Active 1 goal linked to scheduled/documente [...] documented in this encounter Care Teams Manager Of Sales Relationship Specialty Start Date End Date Hoang Castellanos, PLANT MANAGER [address] [place] [address] PCP - General Family Medicine 03/12/20 documented as of this encounter
--- OUTSIDE RECORDS SUMMARY | 2024-08-07 14:04 | XMS_ITS | Encounter Summary ---
Author Organization [facility] Address [facility] [place] [address] Care Team Providers Care Chief Cardiopulmonary Technologist Name Role Phone Hoang Castellanos APRN Primary Care Provider Encounter Details Date Type Department Care Team (Late st Contact Info) Description 05/06/2022 Telephone Primary Care at [facility] [place] [phone] Prior, Gabriela Cruz Social History Tobacco Use [...] to know if release was rec'd for [place] Called back: Advised release had been rec'd documented in this encounter Plan of Treatment Not on file documented as of this encounter Visit Diagnoses Not on filedocumented in this encounter Care Teams Chief Cardiopulmonary Technologist Relationship Specialty Start Date End Date Hoang Castellanos APRN [address] [place] [address] PCP - General Family Medicine 03/12/20 documented as of this encounter
--- OUTSIDE RECORDS SUMMARY | 2024-08-07 14:04 | XMS_ITS | Encounter Summary ---
Author Organization [facility] Address [facility] [place] [address] Care Team Providers Care Food Specialist Name Role Phone Hoang Castellanos APRN Primary Care Provider [phone] Encounter Details Date Type Department Care Team (Late st Contact Info) Description 04/14/2022 12:00 PM EDT Home Care Visit [facility] for Care [address] [place] [phone] Kimberly Austin, BAFFLE MOUNTER LT SKIN PASS OPERATOR HOME VISIT Social History Tobacco Use [...] Care Plan Visit Details Visit Type -LTC SKIN PASS OPERATOR Home Vis it Discipline -Home Health Aide Problems Problem Description Start Date Status Goals Interve ntions A Required Screenings Disciplines: [facility] 03/25/2022 Active 1 goal linked to scheduled/documente d intervention 1 goal intervention scheduled/documente d in this visit Other Disciplines: [facility] 03/25/2022 Active 1 goal linked to scheduled/documente d intervention 1 goal intervention scheduled/documente d in this visit House Keeping Disciplines: [facility] 03/25/2022 Active 1 goal linked to scheduled/documente d intervention 9 goal interventions scheduled/documente d in this visit Personal Care Disciplines: [facility] 03/25/2022 Active 1 goal [...] Completed documented in this encounter Care Teams Food Specialist Relationship Specialty Start Date End Date Hoang Castellanos APRN [address] [place] [phone] PCP - General Family Medicine 03/12/20 documented as of this encounter
--- OUTSIDE RECORDS SUMMARY | 2024-08-07 14:04 | XMS_ITS | Encounter Summary ---
Author Organization [facility] Address [facility] [place] [address] Care Team Providers Care Java Development Manager Name Role Phone Hoang Castellanos APRN Primary Care Provider Encounter Details Date Type Department Care Team (Late st Contact Info) Description 05/07/2022 11:15 AM EDT Home Care Visit [facility] for Care [address] [place] [phone] Kimberly Austin, STAPLER HAND LT INTERVENTIONAL RADIOLOGY TECH HOME VISIT Social History Tobacco Use Types [...] Care Plan Visit Details Visit Type -LTC INTERVENTIONAL RADIOLOGY TECH Home Vis it Discipline -Home Health Aide Problems Problem Description Start Date Status Goals Interve ntions A Required Screenings Disciplines: [facility] 03/25/2022 Active 1 goal linked to scheduled/documente d intervention 1 goal intervention scheduled/documente d in this visit Other Disciplines: [facility] 03/25/2022 Active 1 goal linked to scheduled/documente d intervention 1 goal intervention scheduled/documente d in this visit House Keeping Disciplines: [facility] 03/25/2022 Active 1 goal linked to scheduled/documente d intervention 9 goal interventions scheduled/documente d in this visit Personal Care Disciplines: [facility] 03/25/2022 Active 1 goal linked [...] refused documented in this encounter Care Teams Java Development Manager Relationship Specialty Start Date End Date Hoang Castellanos, PLASTER PATTERNMAKER [address] [place] [address] PCP - General Family Medicine 03/12/20 documented as of this encounter
--- OUTSIDE RECORDS SUMMARY | 2024-08-07 14:04 | XMS_ITS | Encounter Summary ---
Author Organization [facility] Address [facility] [place] [address] Care Team Providers Care Cryptoanalysis Teacher Name Role Phone Hoang Castellanos APRN [...] on filedocumented in this encounter Care Teams Cryptoanalysis Teacher Relationship Specialty Start Date End Date Hoang Castellanos, MANAGER OF OPERATIONS [address] [place] [address] PCP - General Family Medicine 03/12/20 documented as of this encounter
--- OUTSIDE RECORDS SUMMARY | 2024-08-07 14:04 | XMS_ITS | Encounter Summary ---
Author Organization [facility] Address [facility] [place] [address] Care Team Providers Care Board Of Directors Name Role Phone Hoang Castellanos APRN Primary Care Provider Encounter Details Date Type Department Care Team (Late st Contact Info) Description 04/22/2022 12:00 PM EDT Home [facility] [address] [place] [phone] Kimberly Austin, GARAGE SUPERVISOR LT RIB BENDER HOME VISIT Social History Tobacco Use Types [...] Care Plan Visit Details Visit Type -LTC RIB BENDER Home Vis it Discipline -Home Health Aide Problems Problem Description Start Date Status Goals Interve ntions A Required Screenings Disciplines: [facility] 03/25/2022 Active 1 goal linked to scheduled/documente d intervention 1 goal intervention scheduled/documente d in this visit Other Disciplines: [facility] 03/25/2022 Active 1 goal linked to scheduled/documente d intervention 1 goal intervention scheduled/documente d in this visit House Keeping Disciplines: [facility] 03/25/2022 Active 1 goal linked to scheduled/documente d intervention 9 goal interventions scheduled/documente d in this visit Personal Care Disciplines: [facility] 03/25/2022 Active 1 goal linked [...] refused documented in this encounter Care Teams Board Of Directors Relationship Specialty Start Date End Date Hoang Castellanos, COUNTY JUDGE [address] [place] [address] PCP - General Family Medicine 03/12/20 documented as of this encounter
--- OUTSIDE RECORDS SUMMARY | 2024-08-07 14:04 | XMS_ITS | Encounter Summary ---
Author Organization [facility] Address [facility] [place] [address] Care Team Providers Care Pot Pusher Name Role Phone Hoang Castellanos APRN Primary Care Provider Encounter Details Date Type Department Care Team (Late st Contact Info) Description 04/20/2022 8:15 AM EDT Home Care Visit [facility] [address] [place] [phone] Kimberly Austin, PATTERNMAKER METAL LT BROOM BUNDLER HOME VISIT Social History Tobacco Use Types [...] Care Plan Visit Details Visit Type -LTC BROOM BUNDLER Home Vis it Discipline -Home Health Aide Problems Problem Description Start Date Status Goals Interve ntions A Required Screenings Disciplines: [facility] 03/25/2022 Active 1 goal linked to scheduled/documente d intervention 1 goal intervention scheduled/documente d in this visit Other Disciplines: [facility] 03/25/2022 Active 1 goal linked to scheduled/documente d intervention 1 goal intervention scheduled/documente d in this visit House Keeping Disciplines: [facility] 03/25/2022 Active 1 goal linked to scheduled/documente d intervention 9 goal interventions scheduled/documente d in this visit Personal Care Disciplines: [facility] 03/25/2022 Active 1 goal linked [...] clean-up of patient's environment as directed Completed [facility] KITCHEN ARE[facility] Description: Straighten kitchen area [...] refused documented in this encounter Care Teams Pot Pusher Relationship Specialty Start Date End Date Hoang Castellanos, IT QUALITY ASSURANCE ANALYST [address] [place] [address] PCP - General Family Medicine 03/12/20 documented as of this encounter
--- OUTSIDE RECORDS SUMMARY | 2024-08-07 14:04 | XMS_ITS | Encounter Summary ---
Author Organization [facility] Address [facility] [place] [address] Care Team Providers Care Network Project Manager Name Role Phone Hoang Castellanos APRN Primary Care Provider Encounter Details Date Type Department Care Team (Late st Contact Info) Description 04/23/2022 11:00 AM EDT Home Care Visit [facility] [address] [place] [phone] Kimberly Austin, BASKET FILLER LT VIDEO CONFERENCE SPECIALIST HOME VISIT Social History Tobacco Use [...] Care Plan Visit Details Visit Type -LTC VIDEO CONFERENCE SPECIALIST Home Vis it Discipline -Home Health Aide Problems Problem Description Start Date Status Goals Interve ntions A Required Screenings Disciplines: [facility] 03/25/2022 Active 1 goal linked to scheduled/documente d intervention 1 goal intervention scheduled/documente d in this visit Other Disciplines: [facility] 03/25/2022 Active 1 goal linked to scheduled/documente d intervention 1 goal intervention scheduled/documente d in this visit House Keeping Disciplines: [facility] 03/25/2022 Active 1 goal linked to scheduled/documente d intervention 9 goal interventions scheduled/documente d in this visit Personal Care Disciplines: [facility] 03/25/2022 Active 1 goal linked [...] documented in this encounter Care Teams Network Project Manager Relationship Specialty Start Date End Date Hoang Castellanos, PLATFORM ENGINEER [address] [place] [address] PCP - General Family Medicine 03/12/20 documented as of this encounter
--- OUTSIDE RECORDS SUMMARY | 2024-08-07 14:04 | XMS_ITS | Encounter Summary ---
Author Organization [facility] Address [facility] [place] [address] Care Team Providers Care Wet Sander Name Role Phone Hoang Castellanos APRN Primary Care Provider Encounter Details Date Type Department Care Team (Late st Contact Info) Description 04/29/2022 12:00 PM EDT Home Care Visit [facility] [address] [place] [phone] Kimberly Austin, CREAMERY WORKER LT TELEMARKETING SUPERVISOR HOME VISIT Social History Tobacco Use [...] Care Plan Visit Details Visit Type -LTC TELEMARKETING SUPERVISOR Home Vis it Discipline -Home Health [...] N/A documented in this encounter Care Teams Wet Sander Relationship Specialty Start Date End Date Hoang Castellanos, BRACELET AND BROOCH MAKER [address] [place] [place] [address] PCP - General Family Medicine 03/12/20 documented as of this encounter
--- OUTSIDE RECORDS SUMMARY | 2024-08-07 14:04 | XMS_ITS | Encounter Summary ---
Author Organization [facility] Address [facility] [place] [address] Care Team Providers Care Director Of Music Therapy Name Role Phone Hoang Castellanos APRN Primary Care Provider Encounter Details Date Type Department Care Team (Late st Contact Info) Description 05/05/2022 12:00 PM EDT Home [facility] [address] [place] [phone] Kimberly Austin, AIR SAMPLER LT MILL TURNER HOME VISIT Social History Tobacco Use Types [...] Care Plan Visit Details Visit Type -LTC MILL TURNER Home Vis it Discipline -Home Health Aide [...] clean-up of patient's environment as directed Completed [facility] KITCHEN AREA Description: Straighten kitchen [...] in this encounter Care Teams Director Of Music Therapy Relationship Specialty Start Date End Date Hoang Castellanos, CORE ANALYST [address] [place] [address] PCP - General Family Medicine 03/12/20 documented as of this encounter
--- OUTSIDE RECORDS SUMMARY | 2024-08-07 14:04 | XMS_ITS | Encounter Summary ---
Author Organization [facility] Address [facility] [place] [address] Care Team Providers Care Forge Heater Name Role Phone Hoang Castellanos APRN Primary Care Provider Encounter Details Date Type Department Care Team (Late st Contact Info) Description 04/26/2022 12:00 PM EDT Home Care Visit [facility] [address] [place] [phone] Kimberly Austin, SHIFT SUPERINTENDENT LT PRODUCT GRADER HOME VISIT Social History Tobacco Use Types [...] Care Plan Visit Details Visit Type -LTC PRODUCT GRADER Home Vis it Discipline -Home Health Aide [...] refused documented in this encounter Care Teams Forge Heater Relationship Specialty Start Date End Date Hoang Castellanos, PLUGGER WORKER [address] [place] [address] PCP - General Family Medicine 03/12/20 documented as of this encounter
--- OUTSIDE RECORDS SUMMARY | 2024-08-07 14:05 | XMS_ITS | Encounter Summary ---
Author Organization [facility] [place] [address] Care Team Providers Care Gameplay Programmer Name Role Phone Hoang Castellanos APRN Primary Care Provider [phone] Reason for Visit * Reason Comments Medication Refill Encounter Details Date Type Department Care Team (Late st Contact Info) Description 01/18/2022 Refill Primary Care at [facility] [address] [facility] [place] [phone] Hoang Castellanos APRN [address] [place] [address] Coronary artery disease involving [place] coronary artery of [place] heart without angina pectoris Social History Tobacco [...] Visit Diagnoses Diagnosis Coronary artery disease involving [place] coronary artery of [place] heart without angina pectoris documented in this encounter Care Teams Gameplay Programmer Relationship Specialty Start Date End Date Hoang Castellanos APRN [address] [place] [address] PCP - General Family Medicine 03/12/20 documented as of this encounter
--- OUTSIDE RECORDS SUMMARY | 2024-08-07 14:05 | XMS_ITS | Encounter Summary ---
Author Organization [facility] Address [facility] [place] [address] Care Team Providers Care Operations Supervisor Name Role Phone Hoang Castellanos APRN Primary Care Provider [phone] Reason for Visit * Reason Onset Date Comments Colonoscopy 03/25/2022 Pt screening jessica sierra Encounter Details Date Type Department Care Team (Late st Contact Info) Description 03/25/2022 Telephone Surgical Specialties at [facility] [address] [facility] [place] [phone] [place] Arvizu Colonoscopy (Pt screening questions) Social [...] - 03/25/2022 10:20 AM EDT Jeannie Rico [phone] PCP: Hoang Castellanos APRN Received referral: [...] history of heart surgery, stent placement, or [place] (heart attack)? No 4. Do you have [...] filedocumented in this encounter Care Teams Operations Supervisor Relationship Specialty Start Date End Date Hoang Castellanos, SAM [address] [place] [address] PCP - General Family Medicine 03/12/20 documented as of this encounter
--- OUTSIDE RECORDS SUMMARY | 2024-08-07 14:05 | XMS_ITS | Encounter Summary ---
Author Organization [facility] Address [facility] [place] [address] Care Team Providers Care Grocery Stocker Name Role Phone Hoang Castellanos APRN Primary Care Provider Encounter Details Date Type Department Care Team (Late st Contact Info) Description 03/31/2022 1:00 PM EDT Home Care Visit [facility] [address] [place] [phone] Kimberly Austin, DIRECTOR OF DEVELOPMENT LT ERP IMPLEMENTATION CONSULTANT HOME VISIT Social History Tobacco Use Types [...] Plan Visit Details Visit Type -LTC ERP IMPLEMENTATION CONSULTANT Home Vis it Discipline -Home Health Aide Problems Problem Description Start Date Status Goals Interve ntions A Required Screenings Disciplines: [facility] 03/25/2022 Active 1 goal linked to scheduled/documente d intervention 1 goal intervention scheduled/documente d in this visit Other Disciplines: [facility] 03/25/2022 Active 1 goal linked to scheduled/documente d intervention 1 goal intervention scheduled/documente d in this visit House Keeping Disciplines: [facility] 03/25/2022 Active 1 goal linked to scheduled/documente d intervention 9 goal interventions scheduled/documente d in this visit Personal Care Disciplines: [facility] 03/25/2022 Active 1 goal linked [...] Completed documented in this encounter Care Teams Grocery Stocker Relationship Specialty Start Date End Date Hoang Castellanos, ACID SPLICER [address] [place] [address] PCP - General Family Medicine 03/12/20 documented as of this encounter
--- OUTSIDE RECORDS SUMMARY | 2024-08-07 14:05 | XMS_ITS | Encounter Summary ---
Author Organization [facility] Address [facility] [place] [address] Care Team Providers Care Customs Broker Name Role Phone Hoang Castellanos APRN Primary Care Provider Encounter Details Date Type Department Care Team (Late st Contact Info) Description 01/21/2022 Telephone [place] [address] Freddy Dolan PA [facility] [place] [address] Social History Tobacco Use Types Packs/Day Years [...] DPS for 05/20 appts Sent pt a I Had Cancer message with appt details. Jeannie Rico - 01/21/22 Freddy Dolan PA Sent: Carlota January 21, 2022 ??9:40 AM To: P [facility] Neurosurgery Property And Equipment Clerk ?? Follow-up and Dispositions Check-out Note: FU 4 months w/ XR c-spine documented in this encounter Plan of Treatment Not on file documented as of this encounter Visit Diagnoses Not on filedocumented in this encounter Care Teams Customs Broker Relationship Specialty Start Date End Date Hoang Castellanos APRN [address] [place] [address] PCP - General Family Medicine 03/12/20 documented as of this encounter
--- OUTSIDE RECORDS SUMMARY | 2024-08-07 14:05 | XMS_ITS | Encounter Summary ---
Author Organization [facility] Address [facility] [place] [address] Care Team Providers Care Heating Worker Name Role Phone Hoang Castellanos APRN Primary Care Provider [phone] Encounter Details Date Type Department Care Team (Late st Contact Info) Description 01/15/2022 9:00 AM EDT Home Care Visit [facility] [address] [place] [phone] Renetta Ta, OT OT HOME VISIT [...] education documented in this encounter Care Teams Heating Worker Relationship Specialty Start Date End Date Hoang Castellanos, CIGARETTE PAPER TESTER [address] [place] [address] PCP - General Family Medicine 03/12/20 documented as of this encounter
--- OUTSIDE RECORDS SUMMARY | 2024-08-07 14:05 | XMS_ITS | Encounter Summary ---
Author Organization [facility] [place] [address] Care Team Providers Care Examining Chair Assembler Name Role Phone Hoang Castellanos APRN Primary Care Provider [phone] Reason for Visit * Reason Comments Medication Refill Encounter Details Date Type Department Care Team (Late st Contact Info) Description 03/18/2022 Refill Primary Care at [facility] [address] [facility] [place] [address] Hoang Castellanos APRN [address] [place] [address] Cervicalgia; Asthma with acute exacerbation, unspecified asthma [...] persistent documented in this encounter Care Teams Examining Chair Assembler Relationship Specialty Start Date End Date Hoang Castellanos, ROCKET MOTOR MECHANIC [address] [place] [address] PCP - General Family Medicine 03/12/20 documented as of this encounter
--- OUTSIDE RECORDS SUMMARY | 2024-08-07 14:05 | XMS_ITS | Encounter Summary ---
Author Organization [facility] Address [facility] [place] [address] Care Team Providers Care Time Checker Name Role Phone Hoang Castellanos APRN Primary Care Provider Encounter Details Date Type Department Care Team (Late st Contact Info) Description 03/25/2022 Home Care Visit [facility] for Care [address] [place] [phone] Kimberly Austin, [facility] SINGER BACK TENDER HOME VISIT Social History Tobacco Use [...] Care Plan Visit Details Visit Type -LTC SINGER BACK TENDER Home Vis it Discipline -Home Health Aide Problems Problem Description Start Date Status Goals Interve ntions A Required Screenings Disciplines: [facility] 03/25/2022 Active 1 goal linked to scheduled/documente d intervention 1 goal intervention scheduled/documente d in this visit Other Disciplines: [facility] 03/25/2022 Active 1 goal linked to scheduled/documente d intervention 1 goal intervention scheduled/documente d in this visit House Keeping Disciplines: [facility] 03/25/2022 Active 1 goal linked to scheduled/documente d intervention 9 goal interventions scheduled/documente d in this visit Personal Care Disciplines: [facility] 03/25/2022 Active 1 goal linked to scheduled/documente [...] Completed documented in this encounter Care Teams Time Checker Relationship Specialty Start Date End Date Hoang Castellanos, ADMISSIONS ASSISTANT [address] [place] [address] PCP - General Family Medicine 03/12/20 documented as of this encounter
--- OUTSIDE RECORDS SUMMARY | 2024-08-07 14:05 | XMS_ITS | Encounter Summary ---
Author Organization [facility] Address [facility] [place] [address] Care Team Providers Care Food Service Sales Representatives Name Role Phone Hoang Castellanos APRN Primary Care Provider [phone] Encounter Details Date Type Department Care Team (Late st Contact Info) Description 04/07/2022 12:00 PM EDT Home Care Visit [facility] [address] [place] [phone] Kimberly Austin, SENIOR CONTROLLER LT PRECISION LENS GRINDER HOME VISIT Social History Tobacco Use [...] Care Plan Visit Details Visit Type -LTC PRECISION LENS GRINDER Home Vis it Discipline -Home Health Aide Problems Problem Description Start Date Status Goals Interve ntions A Required Screenings Disciplines: [facility] 03/25/2022 Active 1 goal linked to scheduled/documente d intervention 1 goal intervention scheduled/documente d in this visit Other Disciplines: [facility] 03/25/2022 Active 1 goal linked to scheduled/documente d intervention 1 goal intervention scheduled/documente d in this visit House Keeping Disciplines: [facility] 03/25/2022 Active 1 goal linked to scheduled/documente d intervention 9 goal interventions scheduled/documente d in this visit Personal Care Disciplines: [facility] 03/25/2022 Active 1 goal linked [...] refused documented in this encounter Care Teams Food Service Sales Representatives Relationship Specialty Start Date End Date Hoang Castellanos, ACUTE CARE ASSISTANT [address] [place] [address] PCP - General Family Medicine 03/12/20 documented as of this encounter
--- OUTSIDE RECORDS SUMMARY | 2024-08-07 14:05 | XMS_ITS | Encounter Summary ---
Author Organization [facility] Address [facility] [place] [address] Care Team Providers Care Viscosity Inspector Name Role Phone Hoang Castellanos APRN Primary Care Provider [phone] Encounter Details Date Type Department Care Team (Late st Contact Info) Description 01/12/2022 Home Care Visit [facility] Home Health [address] [place] [phone] Marlene Carolina, RN TELEPHONE ENCOUNTER Social [...] on filedocumented in this encounter Care Teams Viscosity Inspector Relationship Specialty Start Date End Date Hoang Castellanos APRN [address] [place] [address] PCP - General Family Medicine 03/12/20 documented as of this encounter
--- OUTSIDE RECORDS SUMMARY | 2024-08-07 14:05 | XMS_ITS | Encounter Summary ---
Author Organization [facility] Address [facility] [place] [address] Care Team Providers Care Transmission And Protection Engineer Name Role Phone Hoang Castellanos APRN Primary Care Provider Encounter Details Date Type Department Care Team (Late st Contact Info) Description 01/12/2022 Home Care Visit [facility] Home Health [address] [place] [phone] Fara Joel RN TELEPHONE ENCOUNTER Social [...] filedocumented in this encounter Care Teams Transmission And Protection Engineer Relationship Specialty Start Date End Date Hoang Castellanos, MARKING ROOM SUPERVISOR [address] [place] [address] PCP - General Family Medicine 03/12/20 documented as of this encounter
--- OUTSIDE RECORDS SUMMARY | 2024-08-07 14:05 | XMS_ITS | Encounter Summary ---
Author Organization [facility] [place] [address] Care Team Providers Care Lead Caster Helper Name Role Phone Hoang Castellanos APRN Primary Care Provider Encounter Details Date Type Department Care Team (Late st Contact Info) Description 01/08/2022 Orders [place] [address] Priya Charles, FLAVOR EXTRACTOR [facility] [place] [address] S/P gastric bypass; Disorder of iron metabolism; [...] developed and its performance characteristics determined by [facility] in a manner consistent with CLIA requirements. This test has not been cleared or approved by the U.S. Food and Drug Administration. Test Performed by: [facility] - [address] [address] Basketball Referee: Skinny Reyes M.D. Ph.D.; CLIA# [id number] Blood 03/31/2022 9:29 AM EDT 03/31/2022 4:59 PM EDT Narrative Resulting Agency Comment Spec In Lab Priya Charles APRN LAB SEND OUT ORD ERABLES LABORATORY [address] [place] [address] * Vitamin B12 (03/31/2022 9:29 AM EDT) Vitamin B12 690 232 - 1,245 pg/mL [facility] Blood 03/31/2022 9:29 AM EDT 03/31/2022 5:10 PM EDT Narrative Resulting Agency Comment Spec In Lab Priya Charles APRN CHEMISTRY ORDERA BLES Performing Organization Address City/[facility] Co de Phone Number [facility] [place] [place] [address] * PTH (03/31/2022 9:29 AM EDT) Parathyroid Hormone 52 15 - 65 pg/mL [facility] Blood 03/31/2022 9:29 AM EDT 03/31/2022 4:41 PM EDT Narrative Resulting Agency Comment Spec In Lab Priya Charles APRN CHEMISTRY ORDERA BLES Performing Organization Address [facility] Co de Phone Number [facility] [place] [address] * (ABNORMAL) Iron and TIBC (03/31/2022 9:29 AM EDT) Iron 40 30 - 150 mcg/dL LABORATORY TIBC 381 250 - 450 mcg/dL LABORATORY Iron Saturation 10(L) 20 - 50 % [facility] Blood 03/31/2022 9:29 AM EDT 03/31/2022 11:41 AM EDT Narrative Resulting Agency Comment Spec In Lab Priya Charles FLAVOR EXTRACTOR CHEMISTRY ORDERA BLES [facility] [address] [place] [address] * (ABNORMAL) Hemogram (03/31/2022 9:29 AM EDT) [...] APRN HEMATOLOGY ORDER [facility] [address] [place] [address] * Folate, serum (03/31/2022 9:29 AM EDT) Folate 7.5 4.8 - 24.2 ng/mL [facility] Blood 03/31/2022 9:29 AM EDT 03/31/2022 5:10 PM EDT Narrative Resulting Agency Comment Spec In Lab Priya Charles APRN CHEMISTRY ORDERA BLES Performing Organization Address City/[facility]/ZIP Co de Phone Number [facility] [place] [address] * (ABNORMAL) Ferritin (03/31/2022 9:29 AM EDT) [facility] Signature Ferritin 17(L) 30 - 400 ng/mL [facility] Comment: Pediatric reference ranges not verified at [facility], interpret with caution. Reference ranges for females greater than 50 years of age approach values for men, i.e., 30-400 ng/mL. 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
--- OUTSIDE RECORDS SUMMARY | 2024-08-07 14:05 | XMS_ITS | Encounter Summary ---
Author Organization [facility] Address [facility] [place] [address] Care Team Providers Care Primer Assembler Name Role Phone Hoang Castellanos APRN Primary Care Provider Encounter Details Date Type Department Care Team (Latest Contact Info) Description 01/19/2022 9:00 AM EDT Home Care Visit [facility] [address] [place] [phone] Raj Nowak, PT PT DISCIPLINE DISCHARGE [...] training documented in this encounter Care Teams Primer Assembler Relationship Specialty Start Date End Date Hoang Castellanos APRN [address] [place] [address] PCP - General Family Medicine 03/12/20 documented as of this encounter
--- OUTSIDE RECORDS SUMMARY | 2024-08-07 14:05 | XMS_ITS | Encounter Summary ---
Author Organization [facility] Address [facility] [place] [place] [address] Care Team Providers Care System Safety Manager Name Role Phone Hoang Castellanos APRN Primary Care Provider Encounter Details Date Type Department Care Team (Latest Contact Info) Description 01/18/2022 12:30 PM EDT Home Care Visit [facility] [address] [place] [phone] Renetta Ta, OT OT DISCIPLINE DISCHARGE [...] TO OT DC VIST TODAY WITH HER RESIDENTIAL CAREGIVER, BRITTA, AND HER SPOUSE. SHE IS [...] ADL AND SHE WILL CONTINUE TO HAVE RESIDENTIAL CARE SUPPORTS NEEDED. PT IS AGREEABLE WITH OT POC. * Home Health - Renetta Ta OT - 01/18/2022 1:20 PM EDT PT PRESENTS TO OT DC VIST TODAY WITH HER ROLLER PAINTER CAREGIVER, BRITTA, AND HER SPOUSE. SHE IS [...] ADL AND SHE WILL CONTINUE TO HAVE ROLLER PAINTER CARE SUPPORTS NEEDED. PT IS AGREEABLE WITH [...] education documented in this encounter Care Teams System Safety Manager Relationship Specialty Start Date End Date Hoang Castellanos APRN [address] [place] [place] [address] PCP - General Family Medicine 03/12/20 documented as of this encounter
--- OUTSIDE RECORDS SUMMARY | 2024-08-07 14:05 | XMS_ITS | Encounter Summary ---
Author Organization [facility] [place] [address] Care Team Providers Care Cold Storage Superintendent Name Role Phone Hoang Castellanos APRN Primary Care Provider Reason for Visit * Reason Comments Medication Refill Encounter Details Date Type Department Care Team (Late st Contact Info) Description 02/15/2022 Refill Primary Care at [facility] [address] [facility] [place] [address] Hoang Castellanos APRN [address] [place] [address] B12 deficiency Social History Tobacco Use Types [...] Notes * Telephone Encounter - Elayne Gomez, [facility] - 02/15/2022 1:45 PM EDT Requested [...] deficiencies documented in this encounter Care Teams Cold Storage Superintendent Relationship Specialty Start Date End Date Hoang Castellanos, AUTO CAMP ATTENDANT [address] [place] [address] PCP - General Family Medicine 03/12/20 documented as of this encounter
--- OUTSIDE RECORDS SUMMARY | 2024-08-07 14:05 | XMS_ITS | Encounter Summary ---
Author Organization [facility] Address [facility] [place] [address] Care Team Providers Care Supervisor Canvas Products Name Role Phone Hoang Castellanos APRN Primary Care Provider Encounter Details Date Type Department Care Team (Late st Contact Info) Description 01/20/2022 10:00 AM EDT Home Care Visit [facility] [address] [place] [phone] Meena Greenwood LPN SN HOME VISIT [...] to scheduled/docume nted intervention Supervisory Visit Disciplines: DONLAD BARRERA Supervision of the SUCTION WORKER. 11/26/2021 Resolved on 01/20/2022 1 goal linked [...] Completed documented in this encounter Care Teams Supervisor [employer] Relationship Specialty Start Date End Date Hoang Castellanos, MARKET SALES MANAGER [address] [place] [address] PCP - General Family Medicine 03/12/20 documented as of this encounter
--- OUTSIDE RECORDS SUMMARY | 2024-08-07 14:05 | XMS_ITS | Encounter Summary ---
Author Organization [facility] Address [facility] [place] [address] Care Team Providers Care Melter Assistant Name Role Phone Hoang Castellanos APRN Primary Care Provider Encounter Details Date Type Department Care Team (Late st Contact Info) Description 03/30/2022 8:00 AM EDT Home Care Visit [facility] [address] [place] [phone] Kimberly Austin, HOME SERVICE DIRECTOR LT SITE INSPECTOR HOME VISIT Social History Tobacco Use [...] Care Plan Visit Details Visit Type -LTC SITE INSPECTOR Home Vis it Discipline -Home Health Aide Problems Problem Description Start Date Status Goals Interve ntions A Required Screenings Disciplines: [facility] 03/25/2022 Active 1 goal linked to scheduled/documente d intervention 1 goal intervention scheduled/documente d in this visit Other Disciplines: [facility] 03/25/2022 Active 1 goal linked to scheduled/documente d intervention 1 goal intervention scheduled/documente d in this visit House Keeping Disciplines: [facility] 03/25/2022 Active 1 goal linked to scheduled/documente d intervention 9 goal interventions scheduled/documente d in this visit Personal Care Disciplines: [facility] 03/25/2022 Active 1 goal linked [...] refused documented in this encounter Care Teams Melter Assistant Relationship Specialty Start Date End Date Hoang Castellanos APRN [address] [place] [address] PCP - General Family Medicine 03/12/20 documented as of this encounter
--- OUTSIDE RECORDS SUMMARY | 2024-08-07 14:05 | XMS_ITS | Encounter Summary ---
Author Organization [facility] [place] [address] Care Team Providers Care Principal Clerk Typist Name Role Phone Hoang Castellanos APRN Primary Care Provider Encounter Details Date Type Department Care Team (Latest Contact Info) Description 02/23/2022 Transcribe Orders Laboratory at [facility] [place] [phone] Sophie Mejia MD [address] [place] [phone] Encounter for long-term (current) use of other [...] ORDERABLES [facility] [address] [place] [address] * Lipid Panel (Reflex Direct LDL) (03/31/2022 9:29 AM EDT) Cholesterol, Total 103 mg/dL [facility] Comment: Lower Risk: <200 mg/dL Average Risk: 200-239 mg/dL Higher Risk: >im=019 mg/dL Triglyceride 111 mg/dL [facility] Comment: Average Risk/Lower Risk: <150 mg/dL Borderline High Risk: 150-199 mg/dL High Risk: 200-499 mg/dL Very High Risk: >qe=586 mg/dL HDL Cholesterol 47 mg/dL [facility] Comment: Males: ?? Higher Risk: <40 mg/dL Females: ?? Higher Risk: <50 mg/dL LDL Cholesterol 34 mg/dL [facility] Comment: Lowest Risk: <100 mg/dL Lower Risk: 100-129 mg/dL Borderline High Risk: 130-159 mg/dL High Risk: 160-189 mg/dL Very High Risk: >qj=646 mg/dL Cholesterol/HDL Ratio 2.2 ratio [facility] Lipid Interpretation See Note LABORATORY Comment: Lipid management should be guided by a patient? s ASCVD risk, goals and preferences. ACC/AHA Guidelines recommend high intensity statin if clinical ASCVD or LDL greater than or equal to 190 mg/dL. http://[email or web address]/VBK-WTI-[email or web address] Adults aged 40-75 with LDL 70-189 mg/dL should have their 10 year ASCVD risk estimated with the ACC/AHA ASCVD risk edge beader http://tools.acc.org/KQGRZ-Xexg-Bnqeqdwrn/ Statin should be discussed if risk greater [...] Sophie Mejia MD CHEMISTRY ORDERABLES [facility] [address] [place] [address] * (ABNORMAL) CMP w/fasting Glucose (03/31/2022 9:29 AM EDT) Glucose Fasting 99 65 - 99 mg/dL [facility] Comment: ?Fasting* Glucose Interpretive [...] of Diabetes Mellitus, Position Statement from the [place] [employer]. ??Diabetes Care, Volume 33, Supplement 1, Jul 2009 Blood Urea Nitrogen 18 8 - 18 mg/dL [facility] Creatinine 0.72 0.70 - 1.20 mg/dL [facility] Sodium 143 135 - 145 mmol/L [facility] Potassium 4.2 3.5 - 5.0 mmol/L [facility] Comment: Please note: ??Patients with WBC >100,000 may have falsely elevated Potassium levels. ??For accurate Potassium quantification in these patients send serum separator tube (gold top) for subsequent determinations. ??Contact the Clinical Chemistry Laboratory if there are any questions. Chloride 104 98 - 107 mmol/L [facility] Carbon Dioxide 28 22 - 31 mmol/L [facility] Anion Gap 11 5 - 15 mmol/L [facility] Calcium 9.7 8.5 - 10.5 mg/dL [facility] Protein, Total 6.9 6.1 [...] MD CHEMISTRY ORDERABLES [facility] [address] [place] [address] documented in this encounter Visit Diagnoses Diagnosis Encounter for long-term (current) use of other medications Explosive personality disorder documented in this encounter Care Teams Principal Clerk Typist Relationship Specialty Start Date End Date Hoang Castellanos, ELECTRIC POWERLINE EXAMINER [address] [address] PCP - General Family Medicine 03/12/20 documented as of this encounter
--- OUTSIDE RECORDS SUMMARY | 2024-08-07 14:05 | XMS_ITS | Encounter Summary ---
Author Organization [facility] [place] [address] Care Team Providers Care Disability Advocate Name Role Phone Hoang Castellanos APRN Primary Care Provider Encounter Details Date Type Department Care Team (Late st Contact Info) Description 03/25/2022 Telephone Primary Care at [facility] [address] [place] [phone] Jeannie Luciano, RN Social History Tobacco Use [...] and notes faxed to facility. Lashawn Brunner, VETERINARY MILK SPECIALIST to Me ??? Hoang Castellanos, PROGRAMMING DIRECTOR ?? 12:30 PM Samara Gallegos provides Level II (SNF) and Level III (JUDITH). We can certainly send a referral, is pt/spouse consenting to referral? Thanks Lashawn * Telephone Encounter - Jeannie Luciano RN - 03/25/2022 1:55 PM EDT Message received from Angela at [facility] (CHANCE on file) asking for call back to discuss a referral to an [facility] for Jeannie. JUDITH is Samara Gallegos in [facility]. Contact at [facility] is Colin Martinez [phone] fax#[phone]. Angela said a referral is needed to [...] on filedocumented in this encounter Care Teams Disability Advocate Relationship Specialty Start Date End Date Hoang Castellanos, PROGRAMMING DIRECTOR [address] [place] [address] PCP - General Family Medicine 03/12/20 documented as of this encounter
--- OUTSIDE RECORDS SUMMARY | 2024-08-07 14:05 | XMS_ITS | Encounter Summary ---
Author Organization [facility] Address [facility] [place] [address] Care Team Providers Care Ball Truing Machine Operator Name Role Phone Hoang Castellanos APRN Primary Care Provider Encounter Details Date Type Department Care Team (Late st Contact Info) Description 04/01/2022 8:00 AM EDT Home Care Visit [facility] [address] [place] [phone] Kimberly Austin, GENERAL SCRAP WORKER LT SUPERVISING EDITOR TRAILER HOME VISIT Social History Tobacco Use Types [...] Care Plan Visit Details Visit Type -LTC SUPERVISING EDITOR TRAILER Home Vis it Discipline -Home Health Aide [...] refused documented in this encounter Care Teams Ball Truing Machine Operator Relationship Specialty Start Date End Date Hoang Castellanos, CLASS A [employer] [address] [place] [address] PCP - General Family Medicine 03/12/20 documented as of this encounter
--- OUTSIDE RECORDS SUMMARY | 2024-08-07 14:05 | XMS_ITS | Encounter Summary ---
Author Organization [facility] Address [facility] [place] [address] Care Team Providers Care Glass Installer Name Role Phone Hoang Castellanos APRN Primary Care Provider Encounter Details Date Type Department Care Team (Late st Contact Info) Description 01/11/2022 3:00 PM EDT Home Care Visit [facility] [address] [place] [phone] Raj Nowak, PT PT HOME VISIT [...] training documented in this encounter Care Teams Glass Installer Relationship Specialty Start Date End Date Hoang Castellanos APRN [address] [place] [address] PCP - General Family Medicine 03/12/20 documented as of this encounter
--- OUTSIDE RECORDS SUMMARY | 2024-08-07 14:05 | XMS_ITS | Encounter Summary ---
Author Organization [facility] [address] Care Team Providers Care Right Of Way Maintenance Supervisor Name Role Phone Hoang Castellanos APRN Primary Care Provider Reason for Referral * Surgical (Routine) - Closed Specialty Diagnoses / Procedures Referred By Vanita dimas Referred To Contact Gastroenterology Diagnoses Colon cancer screening screen Procedures PRO COLONOSCOPY, DIAGNOSTIC PRO ANESTH, LWR INTESTINE, SCREENING COLONOSCOPY colo Hoang Castellanos APRN [address] [place] [address] [facility] Endoscopy [address] [place] [address] Referral ID Status Reason Start Date Expiration Date V isits Requested Visits Authorized [id number] Closed Test Only 03/23/2022 03/23/2023 6 6 * Consultation (Routine) - Specialty Diagnoses / Procedures Referred By Vanita dimas Referred To Contact Ophthalmology Diagnoses Cataract of right eye, unspecified cataract type Hoang Castellanos APRN [address] [place] [address] Ruby Calderon, OD [facility] [place] [address] Referral ID Status Reason Start Date Expiration Date V isits Requested Visits Authorized [id number] Consult, Test & Treat 03/23/2022 03/23/2023 6 6 Encounter Details Date Type Department Care Team (Late st Contact Info) Description 03/23/2022 9:00 AM EDT Office Visit Primary Care at [address] [place] [address] Hoang Castellanos, DISCIPLINARY HEARING OFFICER [address] [place] [address] Annual physical exam; Depression, unspecified depression type; [...] this encounter Progress Notes * Hoang Castellanos, DISCIPLINARY HEARING OFFICER - 03/23/2022 9:00 AM EDT Subjective: HPI: Jeannie Rico is a 61 y.o. female presenting to the [facility] for an annual chronicdisease review. 1. Depression, unspecified depression type A lot of anxiety and depression She has an appt w Psychiatry on 04/01 Tried viibryd/trintellix/abilify but did not tolerate d/t side effects States she should not be taking Vraylar 2. Cataract of right eye, unspecified cataract type Referral to [place] [facility] [place]uated by Jasmeet Garcia at [facility] [...] -- 210 215 No results for input(s): FEXVOHJQ27, SFOLATE, NIGN8RU, VITAMINB6, 25OHVITD, RRDS54GT, VITAMIND, VITAMINA, VITAMINE, IRON, TRANSFERRIN, IRONSAT, FERRITIN [...] daily. ??? Miconazole Powder 1 Application by [facility]Non-Drug; Combo Route) route 2 times daily. ??? [...] daily as needed. ??? Miscellaneous Medical Supply [facility] 1 walker on wheels with seat ??? [...] Hypothyroidism, acquired ??? Osteoporosis DEXA done at [facility] on 10/29/15: osteoporosis at [...] 17.4) performed by Campos Puente MD at [facility] MAIN OR ??? PRO DUDLEY W/O FACETEC FORAMOT/DSKC 07/26 VRT SEG, CERVICAL N/A 10/30/2021 LAMINECTOMY, CX W/EXPLOR , W/O FACETECTOMY, 1 OR 2 SEGMENTS (WRVU 17.61) performed by Campos Puente MD at [facility] MAIN OR ??? PRO POSTERIOR SEGMENTAL INSTRUMENTATION 3-6 VRT SEG N/A 10/30/2021 POST SPINAL INSTRUMENTATION, 3-6 VERTEBRA, NON SEGMENTAL (WRVU 12.56) performed by Campos Puente MD at [facility] MAIN OR ??? PRO UPPER GI ENDOSCOPY, BIOPSY N/A 12/03/2015 EGD WITH BIOPSY performed by Ken Sanders MD at [facility] ENDOSCOPY ??? PRO UPPER GI ENDOSCOPY, BIOPSY N/A 09/19/2018 UPPER GASTROINTESTINAL ENDOSCOPY,WITH BIOPSY SINGLE OR MULTIPLE (WRVU 2.49) performed by Tyron Mercado MD at [facility] ENDOSCOPY ??? TONSILLECTOMY ??? UPPER GI ENDOSCOPY, EXAM 12/04/2010 UPPER GI ENDOSCOPY performed by DEE WRIGHT at [facility] ENDOSCOPY Family History Problem (# of [...] canal normal. Nose: Nose normal. Mouth/Throat: Lips: [place]. Mouth: Mucous membranes are moist. Pharynx: Oropharynx [...] COLONOSCOPY PROCEDURE Depression/PTSD managed by psychiatry at [facility]. Encouraged her to bring med list from [...] 25 OH 54 21 - 100 ng/mL [facility] Vit D Interp Sufficient [facility] Blood 03/31/2022 9:29 AM EDT 03/31/2022 5:10 PM EDT Narrative Resulting Agency Comment Spec In Lab Hoang Castellanos APRN CHEMISTRY ORDERABLES [facility] [place] [address] * (ABNORMAL) Hemoglobin A1c (03/31/2022 9:29 AM EDT) Hemoglobin A1c 6.0(H) 4.3 - 5.6 % [facility] Estimated Average Glucose 126 mg/dL [facility] Blood 03/31/2022 9:29 AM EDT 03/31/2022 11:41 AM EDT Narrative Resulting Agency Comment Spec In Lab Hoang Castellanos APRN CHEMISTRY ORDERABLES Performing Organization Address City/[facility]/ZIP Co de Phone Number [facility] [address] [place] [address] * Ear wax removal (03/23/2022) Narrative Heena [...] colon documented in this encounter Care Teams Right Of Way Maintenance Supervisor Relationship Specialty Start Date End Date Hoang Castellanos APRN [address] [place] [address] PCP - General Family Medicine 03/12/20 documented as of this encounter
--- OUTSIDE RECORDS SUMMARY | 2024-08-07 14:05 | XMS_ITS | Encounter Summary ---
Author Organization [facility] Address [facility] [place] [address] Care Team Providers Care Aboriginal Home School Liaison Officer Name Role Phone Hoang Castellanos APRN Primary Care Provider [phone] Encounter Details Date Type Department Care Team (Late st Contact Info) Description 01/13/2022 9:00 AM EDT Home Care Visit [facility] [address] [place] [phone] Fara Joel RN SN HOME VISIT [...] on filedocumented in this encounter Care Teams Aboriginal Home [employer] Liaison Officer Relationship Specialty Start Date End Date Hoang Castellanos, PLACEMENT ASSISTANT [address] [place] [address] PCP - General Family Medicine 03/12/20 documented as of this encounter
--- OUTSIDE RECORDS SUMMARY | 2024-08-07 14:05 | XMS_ITS | Encounter Summary ---
Author Organization [facility] Address [facility] [place] [address] Care Team Providers Care Production Manager Name Role Phone Hoang Castellanos APRN Primary Care Provider Encounter Details Date Type Department Care Team (Late st Contact Info) Description 01/08/2022 9:30 AM EDT Home Care Visit [facility] [address] [place] [phone] Renetta Ta, OT OT HOME VISIT [...] education documented in this encounter Care Teams Production Manager Relationship Specialty Start Date End Date Hoang Castellanos, SAM [address] [place] [address] PCP - General Family Medicine 03/12/20 documented as of this encounter
--- OUTSIDE RECORDS SUMMARY | 2024-08-07 14:05 | XMS_ITS | Encounter Summary ---
Author Organization [facility] Address [facility] [place] [address] Care Team Providers Care Inspecting Machine Adjuster Name Role Phone Hoang Castellanos APRN Primary Care Provider Encounter Details Date Type Department Care Team (Late st Contact Info) Description 01/07/2022 1:30 PM EDT Home Care Visit [facility] [address] [place] [phone] Raj Nowak, PT PT HOME VISIT [...] Yes 12/01/2021 Housing Stability Vital Sign Answer Aaorn e Recorded In the last 12 months, [...] patient/caregiver documented in this encounter Care Teams Inspecting Machine Adjuster Relationship Specialty Start Date End Date Hoang Castellanos, PANEL FLOW MACHINE OPERATOR [address] [place] [address] PCP - General Family Medicine 03/12/20 documented as of this encounter
--- OUTSIDE RECORDS SUMMARY | 2024-08-07 14:05 | XMS_ITS | Encounter Summary ---
Author Organization [facility] [address] Care Team Providers Care Drafting Detailer Name Role Phone Hoang Castellanos APRN Primary Care Provider Reason for Referral * Physical Therapy (Routine) - Closed Specialty Diagnoses / Procedures Referred By Contac t Referred To Contact Diagnoses Cervical spinal stenosis Freddy Dolan PA [facility] [place] [address] Physical Therapy, [address] [address] Referral ID Status Reason Start Date Expiration Date V isits Requested Visits Authorized [id number] Closed Evaluate and Treat 01/21/2022 07/20/2022 12 12 Encounter Details Date Type Department Care Team (Late st Contact Info) Description 01/21/2022 9:00 AM EDT [place] [address] Freddy Dolan PA [facility] [place] [address] Cervical spinal stenosis; Cervicalgia Social History Tobacco [...] R compared to the L diffusely R caravan park and camping ground manager is 4/5 and R HF is 4/5 [...] repeat x-rays Freddy Dolan PA-C, MS Physician Bleach Range Operator Section of Neurosurgery [address] [address] documented in this encounter Plan of Treatment Scheduled Referrals Name Type Priority Associated Diagnoses Orde r Schedule Referral to Physical Therapy Outpatient Referral Routine Cervical spinal stenosis Ordered: 01/21/2022 documented as of this encounter Visit Diagnoses Diagnosis Cervical spinal stenosis Spinal stenosis in cervical region Cervicalgia documented in this encounter Care Teams Drafting Detailer Relationship Specialty Start Date End Date Hoang Castellanos, CYLINDER CHECKER [address] [place] [address] PCP - General Family Medicine 03/12/20 documented as of this encounter
--- OUTSIDE RECORDS SUMMARY | 2024-08-07 14:05 | XMS_ITS | Encounter Summary ---
Author Organization [facility] Address [facility] [place] [address] Care Team Providers Care Sample Checker Name Role Phone Hoang Castellanos APRN Primary Care Provider [phone] Reason for Referral * Physical Therapy (Routine) - Closed Specialty Diagnoses / Procedures Referred By Vanita t Referred To Contact Physical Therapy Diagnoses Cervical spinal stenosis Hoang Castellanos APRN [address] [place] [address] Physical Therapy, [address] [address] Referral ID Status Reason Start Date Expiration Date V isits Requested Visits Authorized [id number] Closed Evaluate and Treat 01/22/2022 07/21/2022 12 12 Encounter Details Date Type Department Care Team (Late st Contact Info) Description 01/22/2022 Orders Only Primary Care at [facility] [address] [place] [phone] Hoang Castellanos APRN [address] [place] [address] Cervical spinal stenosis Social History Tobacco Use [...] region documented in this encounter Care Teams Sample Checker Relationship Specialty Start Date End Date Hoang Castellanos, CIRCULATION SALES REPRESENTATIVE [address] [place] [address] PCP - General Family Medicine 03/12/20 documented as of this encounter
--- OUTSIDE RECORDS SUMMARY | 2024-08-07 14:05 | XMS_ITS | Encounter Summary ---
Author Organization [facility] Address [facility] [place] [address] Care Team Providers Care Fishing Rod Assembler Name Role Phone Hoang Castellanos APRN Primary Care Provider [phone] Reason for Referral * [facility] Fdc Care (Routine) - Closed Specialty Diagnoses / Procedures Referred By Contdavide t Referred To Contact Home Health Services Diagnoses Age-related physical debility R54 Visiting Nurse, [facility] [address] [address] [facility] Choices For Care [address] [place] [phone] Referral ID Status Reason Start Date Expiration Date V isits Requested Visits Authorized [id number] Closed Consult, Test & Treat 02/08/2022 02/08/2023 999 999 Electronically signed by [facility] Visiting Nurse at 02/08/2022 3:18 PM EDT Encounter Details Date Type Department Care Team (Late st Contact Info) Description 02/08/2022 Transcribe Orders eD Incoming Referrals [phone] Visiting Nurse, [facility] [address] [address] Social History Tobacco Use Types Packs/Day Years [...] Orde r Schedule Amb Referral to [facility] Fdc Care Outpatient Referral Routine Ordered: 02/08/2022 documented as of this encounter Visit Diagnoses Not on filedocumented in this encounter Care Teams Fishing Rod Assembler Relationship Specialty Start Date End Date Hoang Castellanos, GLOBAL MANAGER [address] [place] [address] PCP - General Family Medicine 03/12/20 documented as of this encounter
--- OUTSIDE RECORDS SUMMARY | 2024-08-07 14:05 | XMS_ITS | Encounter Summary ---
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 28 tablet 11 01/18/2022 Miconazole PowderIndications:Derm al mycosis 1 Application by [facility].(Non-Drug; Combo Route) route 2 times daily. 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 ? Electronically signed by: Naomi Ricci MD, [facility] ([phone]), at 01/21/2022 11:34 AM Narrative 01/21/2022 11:34 [...] cervical lateral mass screws and rods at C5-I1kyvyofcodr for subtle differences in projection. No hardware [...] patients who have questions please contactthe health primary health care nurse that requested your imaging first. Electronically signed by: Naomi Ricci MD, [facility]([phone]), at 01/21/2022 11:34 AM Campos Puente MD IMG DX ORDERABLES documented in this encounter Visit Diagnoses Diagnosis Cervical spinal stenosis Spinal stenosis in cervical region documented in this encounter Care Teams Director Bioinformatics Relationship Specialty Start Date End Date Hoang Castellanos, SUPERVISOR DRYING AND WINDING [address] [place] [address] PCP - General Family Medicine 03/12/20 documented as of this encounter
--- OUTSIDE RECORDS SUMMARY | 2024-08-07 14:05 | XMS_ITS | Encounter Summary ---
Author Organization [facility] Address [facility] [place] [address] Care Team Providers Care Tank Wagon Operator Name Role Phone Hoang Castellanos APRN Primary Care Provider Encounter Details Date Type Department Care Team (Late st Contact Info) Description 03/26/2022 Home Care Visit [facility] Choices for Care [address] [place] [phone] Kimberly Austin, [facility] DOCTOR OF NATUROPATHIC MEDICINE HOME VISIT Social History Tobacco Use Types [...] Care Plan Visit Details Visit Type -LTC DOCTOR OF NATUROPATHIC MEDICINE Home Vis it Discipline -Home Health Aide Problems Problem Description Start Date Status Goals Interve ntions A Required Screenings Disciplines: [facility] 03/25/2022 Active 1 goal linked to scheduled/documente d intervention 1 goal intervention scheduled/documente d in this visit Other Disciplines: [facility] 03/25/2022 Active 1 goal linked to scheduled/documente d intervention 1 goal intervention scheduled/documente d in this visit House Keeping Disciplines: [facility] 03/25/2022 Active 1 goal linked to scheduled/documente d intervention 9 goal interventions scheduled/documente d in this visit Personal Care Disciplines: [facility] 03/25/2022 Active 1 goal linked to [...] refused documented in this encounter Care Teams Tank Wagon Operator Relationship Specialty Start Date End Date Hoang Castellanos, AIR DEFENSE ARTILLERY SENIOR SERGEANT [address] [place] [address] PCP - General Family Medicine 03/12/20 documented as of this encounter
--- OUTSIDE RECORDS SUMMARY | 2024-08-07 14:05 | XMS_ITS | Encounter Summary ---
Author Organization [facility] Address [facility] [place] [address] Care Team Providers Care Crimp Setter Name Role Phone Hoang Castellanos APRN Primary Care Provider Reason for Referral * [facility] Fdc Care (Routine) - Closed Specialty Diagnoses / Procedures Referred By Contdavide t Referred To Contact Home Health Services Diagnoses Age-related physical debility Visiting Nurse, [facility] [address] [address] [facility] Choices For Care [address] [place] [phone] Referral ID Status Reason Start Date Expiration Date V isits Requested Visits Authorized [id number] Closed Consult, Test & Treat 03/03/2022 03/03/2023 999 999 Electronically signed by [facility] Visiting Nurse at 03/03/2022 8:58 AM EDT Encounter Details Date Type Department Care Team (Late st Contact Info) Description 03/03/2022 Transcribe Orders eD Incoming Referrals [phone] Visiting Nurse, [facility] [address] [address] Age-related physical debility Social History Tobacco Use [...] r Schedule Amb Referral to [facility] Engineered Wood Designer Care Outpatient Referral Routine Age-related physical debility Ordered: 03/03/2022 documented as of this encounter Visit Diagnoses Diagnosis 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
--- OUTSIDE RECORDS SUMMARY | 2024-08-07 14:05 | XMS_ITS | Encounter Summary ---
Author Organization [facility] Address [facility] [place] [address] Care Team Providers Care Product Management Specialist Name Role Phone Hoang Castellanos APRN Primary Care Provider Encounter Details Date Type Department Care Team (Late st Contact Info) Description 01/21/2022 2:00 PM EDT Home Care Visit [facility] [address] [place] [phone] Fara Joel RN SN OASIS DISCHARGE [...] filedocumented in this encounter Care Teams Product Management Specialist Relationship Specialty Start Date End Date Hoang Castellanos APRN [address] [place] [address] PCP - General Family Medicine 03/12/20 documented as of this encounter
--- OUTSIDE RECORDS SUMMARY | 2024-08-07 14:05 | XMS_ITS | Encounter Summary ---
Author Organization [facility] Address [facility] [place] [address] Care Team Providers Care Project Director Name Role Phone Hoang Castellanos APRN Primary Care Provider Encounter Details Date Type Department Care Team (Late st Contact Info) Description 04/02/2022 8:00 AM EDT Home Care Visit [facility] [address] [place] [phone] Kimberly Austin, HOTEL MANAGER LT MANAGER STRATEGIC SOURCING HOME VISIT Social History Tobacco Use Types [...] Care Plan Visit Details Visit Type -LTC MANAGER STRATEGIC SOURCING Home Vis it Discipline -Home Health Aide Problems Problem Description Start Date Status Goals Interve ntions A Required Screenings Disciplines: [facility] 03/25/2022 Active 1 goal linked to scheduled/documente d intervention 1 goal intervention scheduled/documente d in this visit Other Disciplines: [facility] 03/25/2022 Active 1 goal linked to scheduled/documente d intervention 1 goal intervention scheduled/documente d in this visit House Keeping Disciplines: [facility] 03/25/2022 Active 1 goal linked to scheduled/documente d intervention 9 goal interventions scheduled/documente d in this visit Personal Care Disciplines: [facility] 03/25/2022 Active 1 goal linked to scheduled/documente [...] Completed documented in this encounter Care Teams Project Director Relationship Specialty Start Date End Date Hoang Castellanos, ROPEWALK ROPE MAKER [address] [place] [address] PCP - General Family Medicine 03/12/20 documented as of this encounter
--- OUTSIDE RECORDS SUMMARY | 2024-08-07 14:05 | XMS_ITS | Encounter Summary ---
Author Organization [facility] Address [facility] [place] [address] Care Team Providers Care Teacher Vocal Name Role Phone Hoang Castellanos APRN Primary Care Provider Encounter Details Date Type Department Care Team (Late st Contact Info) Description 01/14/2022 Orders Only Primary Care at [facility] [address] [place] [address] Hoang Castellanos APRN [address] [place] [address] Dermal mycosis Social History Tobacco Use Types [...] unspecified documented in this encounter Care Teams Teacher Vocal Relationship Specialty Start Date End Date Hoang Castellanos APRN [address] [place] [address] PCP - General Family Medicine 03/12/20 documented as of this encounter
--- OUTSIDE RECORDS SUMMARY | 2024-08-07 14:05 | XMS_ITS | Encounter Summary ---
Author Organization [facility] [place] [address] Care Team Providers Care Half Backer Name Role Phone Hoang Castellanos APRN Primary Care Provider Encounter Details Date Type Department Care Team (Latest Contact Info) Description 03/31/2022 9:15 AM EDT Laboratory Appointment Laboratory at [facility] [place] [address] S/P gastric bypass; Disorder of [...] MD HEMATOLOGY ORDERABLE S Performing Organization Address City/[facility]/ZIP Co de Phone Number LABORATORY [address] [place] [address] * (ABNORMAL) Hemoglobin A1c (03/31/2022 9:29 AM EDT) Hemoglobin A1c 6.0(H) 4.3 - 5.6 % LABORATORY Estimated Average Glucose 126 mg/dL LABORATORY Blood 03/31/2022 9:29 AM EDT 03/31/2022 11:41 AM EDT Narrative Resulting Agency Comment Spec In Lab Hoang Castellanos APRN CHEMISTRY ORDERABLES LABORATORY [address] [place] [address] * Vitamin D, 25-Hydroxy (03/31/2022 9:29 AM EDT) Vitamin D Total 25 OH 54 21 - 100 ng/mL [facility] Vit D Interp Sufficient [facility] Blood 03/31/2022 9:29 AM EDT 03/31/2022 5:10 PM EDT Narrative Resulting Agency Comment Spec In Lab Hoang Castellanos APRN CHEMISTRY ORDERABLES [facility] [place] [address] * (ABNORMAL) CMP w/fasting Glucose (03/31/2022 9:29 AM EDT) Glucose Fasting 99 65 - 99 mg/dL [facility] Comment: ?Fasting* Glucose [...] of Diabetes Mellitus, Position Statement from the [place] [employer]. ??Diabetes Care, Volume 33, Supplement 1, Jul 2009 Blood Urea Nitrogen 18 8 - 18 mg/dL [facility] Creatinine 0.72 0.70 - 1.20 mg/dL [facility] Sodium 143 135 - 145 mmol/L [facility] Potassium 4.2 3.5 - 5.0 mmol/L [facility] Comment: Please note: ??Patients with [...] Mejia MD CHEMISTRY ORDERABLES LABORATORY [address] [place] [address] * Lipid Panel (Reflex Direct LDL) (03/31/2022 9:29 AM EDT) Pathologist [facility] Cholesterol, Total 103 mg/dL [facility] Comment: Lower Risk: <200 mg/dL Average Risk: 200-239 mg/dL Higher Risk: >wd=462 mg/dL Triglyceride 111 mg/dL [facility] Comment: Average Risk/Lower Risk: <150 mg/dL Borderline High Risk: 150-199 mg/dL High Risk: 200-499 mg/dL Very High Risk: >rg=823 mg/dL HDL Cholesterol 47 mg/dL [facility] Comment: Males: ?? Higher Risk: <40 mg/dL Females: ?? Higher Risk: <50 mg/dL LDL Cholesterol 34 mg/dL LABORATORY Comment: Lowest Risk: <100 mg/dL Lower Risk: 100-129 mg/dL Borderline High Risk: 130-159 mg/dL High Risk: 160-189 mg/dL Very High Risk: >hj=504 mg/dL Cholesterol/HDL Ratio 2.2 ratio [facility] Lipid Interpretation See Note [facility] Comment: Lipid management should be guided by a patient? s ASCVD risk, goals and preferences. ACC/AHA Guidelines recommend high intensity statin if clinical ASCVD or LDL greater than or equal to 190 mg/dL. http://Bandtastic.me.com/WAS-UPL-Utyvrnmau Adults aged 40-75 with LDL 70-189 mg/dL should have their 10 year ASCVD risk estimated with the ACC/AHA ASCVD risk drilling plant operator http://tools.acc.org/EALFQ-Kbek-Qjtbgkoor/ Statin should be discussed if risk greater [...] MD CHEMISTRY ORDERABLES [facility] [address] [place] [address] * TSH (03/31/2022 9:29 AM EDT) Thyroid Stimulating Hormone 2.42 0.27 - 4.20 mcIU/mL [facility] Comment: Reference Interval (mcIU/mL): Females: ??First Trimester: 0.23-3.88 ??Second Trimester: 0.22-3.90 ??Third Trimester: 0.44-4.66 Blood 03/31/2022 9:29 AM EDT 03/31/2022 11:41 AM EDT Narrative Resulting Agency Comment Spec In Lab Sophie Mejia MD CHEMISTRY ORDERABLES Performing Organization Address [facility] de Phone Number [facility] [address] [place] [address] * (ABNORMAL) Ferritin (03/31/2022 9:29 AM EDT) [facility] Ferritin 17(L) 30 - 400 ng/mL [facility] Comment: Pediatric reference ranges not verified at [facility], interpret with caution. Reference ranges for females greater than 50 years of age approach values for men, i.e., 30-400 ng/mL. Blood 03/31/2022 9:29 AM EDT 03/31/2022 11:41 AM EDT Narrative Resulting Agency Comment Spec In Lab Priya Charles APRN CHEMISTRY ORDERA BLES Performing Organization Address [facility] de Phone Number [facility] [address] [place] [address] * Folate, serum (03/31/2022 9:29 AM EDT) [facility] Folate 7.5 4.8 - 24.2 ng/mL [facility] Blood 03/31/2022 9:29 AM EDT 03/31/2022 5:10 PM EDT Narrative Resulting Agency Comment Spec In Lab Priya Charles APRN CHEMISTRY ORDERA BLES [facility] [address] [place] [address] * (ABNORMAL) Hemogram (03/31/2022 9:29 AM EDT) [...] Agency Comment Spec In Lab Priya Charles OCEANOGRAPHY PROFESSOR HEMATOLOGY ORDER [facility] [address] [place] [address] * (ABNORMAL) Iron and TIBC (03/31/2022 9:29 AM EDT) Iron 40 30 - 150 mcg/dL LABORATORY TIBC 381 250 - 450 mcg/dL LABOR[facility]ORY Iron Saturation 10(L) 20 - 50 % LAB[facility]ORY Blood 03/31/2022 9:29 AM EDT 03/31/2022 11:41 AM EDT Narrative Resulting Agency Comment Spec In Lab Priya Charles APRN CHEMISTRY ORDERA BLES Performing Organization Address City/[facility]/ZIP Co de Phone Number LABORATORY [address] [place] [address] * PTH (03/31/2022 9:29 AM EDT) Parathyroid Hormone 52 15 - 65 pg/mL [facility] Blood 03/31/2022 9:29 AM EDT 03/31/2022 4:41 PM EDT Narrative Resulting Agency Comment Spec In Lab Priya Charles APRN CHEMISTRY ORDERA BLES Performing Organization Address [facility] Co de Phone Number [facility] [place] [address] * Vitamin B12 (03/31/2022 9:29 AM EDT) Vitamin B12 690 232 - 1,245 pg/mL [facility] Blood 03/31/2022 9:29 AM EDT 03/31/2022 5:10 PM EDT Narrative Resulting Agency Comment Spec In Lab Priya Charles APRN CHEMISTRY ORDERA BLES Performing Organization Address [facility] Co de Phone Number [facility] [place] [address] * Vitamin B1, whole blood (03/31/2022 9:29 AM EDT) Vit B1 Lvl Wb (NOVEMBER) 150 70 - 180 nmol/L LABORATORY Comment: ADDITIONAL INFORMATION This test was developed and its performance characteristics determined by [facility] in a manner consistent with CLIA requirements. This test has not been cleared or approved by the U.S. Food and Drug Administration. Test Performed by: [facility] [address] [place] [address] Icu Clerk: Skinny Reyes M.D. Ph.D.; CLIA# [id number] Blood 03/31/2022 9:29 AM EDT 03/31/2022 4:59 PM EDT Narrative Resulting Agency Comment Spec In Lab Priya Charles APRN LAB SEND OUT ORD ERABLES [facility] [address] [place] [address] documented in this encounter Visit Diagnoses Diagnosis [...] disorders documented in this encounter Care Teams Half Backer Relationship Specialty Start Date End Date Hoang Castellanos APRN [address] [place] [address] PCP - General Family Medicine 03/12/20 documented as of this encounter
--- OUTSIDE RECORDS SUMMARY | 2024-08-07 14:06 | XMS_ITS | Encounter Summary ---
Author Organization [facility] Address [facility] [place] [address] Care Team Providers Care Floor Coverings Installer Name Role Phone Hoang Castellanos APRN Primary Care Provider Encounter Details Date Type Department Care Team (Late st Contact Info) Description 06/06/2022 Plan of Care Documentation [facility] Home Health [address] [place] [phone] Social History Tobacco Use Types Packs/Day [...] filedocumented in this encounter Care Teams Floor Coverings Installer Relationship Specialty Start Date End Date Hoang Castellanos, SAM [address] [place] [address] PCP - General Family Medicine 03/12/20 documented as of this encounter
--- OUTSIDE RECORDS SUMMARY | 2024-08-07 14:06 | XMS_ITS | Encounter Summary ---
Author Organization [facility] Address [facility] [place] [address] Care Team Providers Care Almond Pan Finisher Name Role Phone Hoang Castellanos APRN Primary Care Provider [phone] Encounter Details Date Type Department Care Team (Late st Contact Info) Description 11/30/2021 Orders Only Primary Care at [facility] [address] [facility] [place] [address] Hoang Castellanos APRN [address] [place] [address] Social History Tobacco Use Types Packs/Day Years [...] on filedocumented in this encounter Care Teams Almond Pan Finisher Relationship Specialty Start Date End Date Hoang Castellanos APRN [address] [place] [address] PCP - General Family Medicine 03/12/20 documented as of this encounter
--- OUTSIDE RECORDS SUMMARY | 2024-08-07 14:06 | XMS_ITS | Encounter Summary ---
Author Organization [facility] [place] [address] Care Team Providers Care Track Liner Operator Name Role Phone Hoang Castellanos APRN Primary Care Provider Reason for Visit * Reason Comments Follow-up Encounter Details Date Type Department Care Team (Late st Contact Info) Description 12/01/2021 11:30 AM EDT Office Visit Primary Care at [facility] [place] [phone] Hoang Castellanos APRN [address] [place] [address] Cervicalgia; Chronic pain syndrome; Chronic obstructive pulmonary [...] a 61 y.o. female presenting to the [facility] Primary Care Clinic HPI Discharge from [facility] Neck pain s/p C5-6 PCDF on [...] but ends up on stomach anyway [facility] HH services HH RN, P.T., O.T. Right [...] lozenges/gum-would like patches Overnight oximetry done at [facility] Home O2 was ordered through [employer]. Lowest [...] providingthis patient's care. This includes time spent fude-kd-judb with the patient performing evaluation, examination, and counseling. It also includes non vzyl-hc-whfp time preparing to see the patient, reviewing the chart, coordinating care, and documenting clinical information in the electronic health record. (Established patient total visit time: 51230 - 20min, 94992 - 30 min, 47897 - 40 min; New patient total visit times: 97654 - 30 min, 37918 - 45 min, 27106 - 60 min) documented in this encounter [...] limbs documented in this encounter Care Teams Track Liner Operator Relationship Specialty Start Date End Date Hoang Castellanos APRN [address] [place] [address] PCP - General Family Medicine 03/12/20 documented as of this encounter
--- OUTSIDE RECORDS SUMMARY | 2024-08-07 14:06 | XMS_ITS | Encounter Summary ---
Author Organization [facility] Address [facility] [place] [address] Care Team Providers Care Deck Steward Name Role Phone Hoang Castellanos APRN Primary Care Provider Encounter Details Date Type Department Care Team (Late st Contact Info) Description 12/12/2021 3:00 PM EDT Home Care Visit [facility] [address] [place] [phone] Dhruv Balderrama, PT PT HOME VISIT [...] exercise documented in this encounter Care Teams Deck Steward Relationship Specialty Start Date End Date Hoang Castellanos, DIRECTOR MEDICARE SALES [address] [place] [address] PCP - General Family Medicine 03/12/20 documented as of this encounter
--- OUTSIDE RECORDS SUMMARY | 2024-08-07 14:06 | XMS_ITS | Encounter Summary ---
Author Organization [facility] Address [facility] [place] [address] Care Team Providers Care Political Director Name Role Phone Hoang Castellanos APRN Primary Care Provider Encounter Details Date Type Department Care Team (Late st Contact Info) Description 12/23/2021 1:30 PM EDT Home Care Visit [facility] [address] [place] [phone] Bárbara Morfin, RN SN HOME VISIT [...] encounter Miscellaneous Notes * Home Health - Bárbraa Morfin RN - 12/23/2021 11:29 AM EDT [...] Learning/Teaching Needs - Inhalation Treatments Disciplines: SN, INSTRUCTIONAL SYSTEMS DESIGN CONSULTANT Lack of knowledge in how to administer [...] precautions to avoid smoking, static electricity, airline pilot flight instructor lights on gas stoves and water heaters, [...] hours. senior solutions looking for a weekly ship cleaner but needs a deep clean first. [...] number documented in this encounter Care Teams Political Director Relationship Specialty Start Date End Date Hoang Castellanos, BALLROOM DANCE INSTRUCTOR [address] [place] [address] PCP - General Family Medicine 03/12/20 documented as of this encounter
--- OUTSIDE RECORDS SUMMARY | 2024-08-07 14:06 | XMS_ITS | Encounter Summary ---
Author Organization [facility] Address [facility] [place] [address] Care Team Providers Care Material Handler Name Role Phone Hoang Castellanos APRN Primary Care Provider Encounter Details Date Type Department Care Team (Late st Contact Info) Description 12/17/2021 9:00 AM EDT Home Care Visit [facility] [address] [place] [phone] Bárbara Morfin, RN SN HOME VISIT [...] medications that were not in home yet, SOLAR WATER HEATER INSTALLER check in, Hygiene GI/ care, Pain mgmt documented in this encounter Plan of Treatment Not on file documented as of this encounter Visit Diagnoses Not on filedocumented in this encounter Home Health Visit - Care Plan Visit Details Visit Type -SN Home Visit Discipline -Jail Problems Problem Description Start Date Status Goals Interventions Learning/Teaching Needs - Inhalation Treatments Disciplines: SN, MIDDLE SCHOOL RESOURCE TEACHER Lack of knowledge in how to administer inhalant treatments and how to care for the equipment. 11/26/2021 Active 1 goal linked to scheduled/docume nted intervention 1 goal intervention scheduled/documen shabana in this visit Supervisory Visit Disciplines: DONALD BARRERA Supervision of the [facility]. 11/26/2021 Active 1 goal linked to [...] including precautions to avoid smoking, static electricity, ship's pilot lights on gas stoves and water [...] Visit Description: Perform supervisory visit of the SOLAR WATER HEATER INSTALLER at minimum every 16 days. Perform supervisory visit of the PT Pathologist Assistant at minimum every 5th visit or every 30 days. Problem:Supervisory Visit Goal:Supervisory visit will be completed as ordered Completed Supervisory visit of SOLAR WATER HEATER INSTALLER performed. See aide/supervisory visit documentation for assessment. [...] Completed documented in this encounter Care Teams Material Handler Relationship Specialty Start Date End Date Hoang Castellanos APRN [address] [place] [address] PCP - General Family Medicine 03/12/20 documented as of this encounter
--- OUTSIDE RECORDS SUMMARY | 2024-08-07 14:06 | XMS_ITS | Encounter Summary ---
[place] [address] Care Team Providers Care Molded Goods Spot Picker Name Role Phone Hoang Castellanos APRN Primary Care Provider Encounter Details Date Type Department Care Team (Late st Contact Info) Description 11/04/2021 Telephone [place] [phone] Chikis Orourke Social History Tobacco Use Types [...] Chikis Orourke - 11/04/2021 1:54 PM EDT oMnique from [facility] calling to advise potential interaction between tramadol prescribed and Viibryd, please call to approve script or change medications documented in this encounter Plan of Treatment Not on file documented as of this encounter Visit Diagnoses Not on filedocumented in this encounter Care Teams Molded Goods Spot Picker Relationship Specialty Start Date End Date Hoang Castellanos, SHAPER SETTER [address] [place] [address] PCP - General Family Medicine 03/12/20 documented as of this encounter
--- OUTSIDE RECORDS SUMMARY | 2024-08-07 14:06 | XMS_ITS | Encounter Summary ---
Author Organization [facility] Address [facility] [place] [address] Care Team Providers Care Horse Wrangler Name Role Phone Hoang Castellanos APRN Primary Care Provider Encounter Details Date Type Department Care Team (Late st Contact Info) Description 12/14/2021 1:00 PM EDT Home Care Visit [facility] [address] [place] [phone] Raj Nowak, PT PT HOME VISIT [...] training documented in this encounter Care Teams Horse Wrangler Relationship Specialty Start Date End Date Hoang Castellanos, STATISTICAL METHODS PROFESSOR [address] [place] [address] PCP - General Family Medicine 03/12/20 documented as of this encounter
--- OUTSIDE RECORDS SUMMARY | 2024-08-07 14:06 | XMS_ITS | Encounter Summary ---
Author Organization [facility] Address [facility] [place] [address] Care Team Providers Care Steam Powerplant Supervisor Name Role Phone Hoang Castellanos APRN Primary Care Provider Encounter Details Date Type Department Care Team (Late st Contact Info) Description 12/17/2021 10:30 AM EDT Home Care Visit [facility] [address] [place] [phone] Raj Nowak, PT PT HOME VISIT [...] training documented in this encounter Care Teams Steam Powerplant Supervisor Relationship Specialty Start Date End Date Hoang Castellanos APRN [address] [place] [address] PCP - General Family Medicine 03/12/20 documented as of this encounter
--- OUTSIDE RECORDS SUMMARY | 2024-08-07 14:06 | XMS_ITS | Encounter Summary ---
Author Organization [facility] [place] [address] Care Team Providers Care Conference Interpreter Name Role Phone Hoang Castellanos APRN Primary Care Provider Reason for Visit * Home Health Care (Routine) - Closed Specialty Diagnoses / Procedures Referred By Vanita t Referred To Contact Diagnoses Cervical spondylosis with myelopathy Adri Moe MD [address] [place] [address] [address] Referral ID Status Reason Start Date Expiration Date V isits Requested Visits Authorized [id number] Closed Consult, Test & Treat 11/24/2021 11/24/[phone] Encounter Details Date Type Department Care Team (Latest Contact Info) Description 11/26/2021 9:30 AM EDT Home Care Visit [address] [phone] Bárbara Morfin RN SN OASIS [...] for 1 month of visits Kimberly Majano [phone] from [employer] [facility] care budget: wheelchair Aminah Haro [phone] emergency contact documented in this encounter Plan of Treatment Scheduled Referrals Name Type Priority Associated Diagnoses Orde r Schedule Referral to Home Health Outpatient Referral Routine Cervical spondylosis with myelopathy Ordered: 11/24/2021 documented as of this encounter Visit Diagnoses Not on filedocumented in this encounter Care Teams Conference Interpreter Relationship Specialty Start Date End Date Hoang Castellanos APRN [address] [place] [address] PCP - General Family Medicine 03/12/20 documented as of this encounter
--- OUTSIDE RECORDS SUMMARY | 2024-08-07 14:06 | XMS_ITS | Encounter Summary ---
Author Organization [facility] Address [facility] [place] [address] Care Team Providers Care Pasteurizing Supervisor Name Role Phone Hoang Castellanos APRN Primary Care Provider [phone] Encounter Details Date Type Department Care Team (Late st Contact Info) Description 12/30/2021 10:00 AM EDT Home Care Visit [facility] Home Health [address] [place] [phone] Samira Gasca LNA AIDEdison HOME VISIT [...] Status Goals Interve ntions Personal Care Disciplines: FLANGER Aide to assist patient with personal cares as directed. 11/26/2021 Active 1 goal linked to scheduled/documen leela intervention 6 goal interventions scheduled/document ed in this visit Activity Disciplines: FLANGER Aide to assist patient activity tasks as [...] ordered Scheduled with variance N/A Transfers Description: FLANGER assist with transfers using Tub chair with extension Problem:Activity Goal:Patient activity needs will be completed by aide as ordered Completed Assist with Ambulation Description: FLANGER assist with ambulation using walker or wheelchair Problem:Activity Goal:Patient activity needs will be completed by aide as ordered Completed Assist Repositioning Description: Assist with repositioning patient. Problem:Activity Goal:Patient activity needs will be completed by aide as ordered Scheduled with variance N/A documented in this encounter Care Teams Pasteurizing Supervisor Relationship Specialty Start Date End Date Hoang Castellanos, LENS POLISHER HAND [address] [place] [address] PCP - General Family Medicine 03/12/20 documented as of this encounter
--- OUTSIDE RECORDS SUMMARY | 2024-08-07 14:06 | XMS_ITS | Encounter Summary ---
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 meds [...] COPD type Cervicalgia Coronary artery disease involving t[place] coronary artery of [place] heart without angina pectoris documented in this encounter Care Teams Sports Internship Relationship Specialty Start Date End Date Hoang Castellanos APRN [address] [place] [address] PCP - General Family Medicine 03/12/20 documented as of this encounter
--- OUTSIDE RECORDS SUMMARY | 2024-08-07 14:06 | XMS_ITS | Encounter Summary ---
Author Organization [facility] Address [facility] [place] [address] Care Team Providers Care Wire Coater Name Role Phone Hoang Castellanos APRN Primary Care Provider Encounter Details Date Type Department Care Team (Late st Contact Info) Description 12/16/2021 Home Care Visit [facility] Home Health [address] [place] [phone] Meena [place], CIVIL RIGHTS INVESTIGATOR CASE COMMUNICATION Social History Tobacco Use Types [...] on filedocumented in this encounter Care Teams Wire Coater Relationship Specialty Start Date End Date Hoang Castellanos APRN [address] [place] [address] PCP - General Family Medicine 03/12/20 documented as of this encounter
--- OUTSIDE RECORDS SUMMARY | 2024-08-07 14:06 | XMS_ITS | Encounter Summary ---
Author Organization [facility] Address [facility] [place] [address] Care Team Providers Care Woods Overseer Name Role Phone Hoang Castellanos APRN Primary Care Provider Encounter Details Date Type Department Care Team (Late st Contact Info) Description 12/11/2021 2:15 PM EDT Home Care Visit [facility] [address] [place] [phone] Bárbara Morfin, RN SN HOME VISIT [...] in home, pt may need assistance calling [employer] company to remove empty tank. documented in this encounter Plan of Treatment Not on file documented as of this encounter Visit Diagnoses Not on filedocumented in this encounter Home Health Visit - Care Plan Visit Details Visit Type -SN Home Visit Discipline -Half-Way Problems Problem Description Start Date Status Goals [...] including precautions to avoid smoking, static electricity, tugboat pilot lights on gas stoves and water [...] house. documented in this encounter Care Teams Woods Overseer Relationship Specialty Start Date End Date Hoang Castellanos APRN [address] [place] [address] PCP - General Family Medicine 03/12/20 documented as of this encounter
--- OUTSIDE RECORDS SUMMARY | 2024-08-07 14:06 | XMS_ITS | Encounter Summary ---
Author Organization [facility] Address [facility] [place] [address] Care Team Providers Care Bottling Line Attendant Name Role Phone Hoang Castellanos APRN Primary Care Provider [phone] Encounter Details Date Type Department Care Team (Late st Contact Info) Description 12/29/2021 12:00 PM EDT Home Care Visit [facility] [address] [place] [phone] Raj Nowak, PT PT REASSESSMENT Social [...] training documented in this encounter Care Teams Bottling Line Attendant Relationship Specialty Start Date End Date Hoang Castellanos, ACCELERATOR SYSTEMS DIRECTOR [address] [place] [address] PCP - General Family Medicine 03/12/20 documented as of this encounter
--- OUTSIDE RECORDS SUMMARY | 2024-08-07 14:06 | XMS_ITS | Encounter Summary ---
Author Organization [facility] Address [facility] [place] [address] Care Team Providers Care Installation Technician Name Role Phone Hoang Castellanos APRN Primary Care Provider Encounter Details Date Type Department Care Team (Late st Contact Info) Description 12/04/2021 11:00 AM EDT Home Care Visit [facility] [address] [place] [phone] Jolly Haddad LNA AIDE HOME VISIT [...] Status Goals Interve ntions Personal Care Disciplines: FULFILLMENT COORDINATOR Aide to assist patient with personal cares as directed. 11/26/2021 Active 1 goal linked to scheduled/documen leela intervention 6 goal interventions scheduled/document ed in this visit Activity Disciplines: FULFILLMENT COORDINATOR Aide to assist patient activity tasks as [...] ordered Scheduled with variance N/A Transfers Description: FULFILLMENT COORDINATOR assist with transfers using Tub chair with extension Problem:Activity Goal:Patient activity needs will be completed by aide as ordered Completed Assist with Ambulation Description: FULFILLMENT COORDINATOR assist with ambulation using walker or wheelchair Problem:Activity Goal:Patient activity needs will be completed by aide as ordered Completed Assist Repositioning Description: Assist with repositioning patient. Problem:Activity Goal:Patient activity needs will be completed by aide as ordered Completed documented in this encounter Care Teams Installation Technician Relationship Specialty Start Date End Date Hoang Castellanos, TEXTILE MACHINE MECHANIC [address] [place] [address] PCP - General Family Medicine 03/12/20 documented as of this encounter
--- OUTSIDE RECORDS SUMMARY | 2024-08-07 14:06 | XMS_ITS | Encounter Summary ---
Author Organization [facility] Address [facility] [place] [address] Care Team Providers Care Car Sealer Name Role Phone Hoang Castellanos APRN Primary Care Provider Encounter Details Date Type Department Care Team (Late st Contact Info) Description 12/02/2021 2:00 PM EDT Home Care Visit [facility] [address] [place] [phone] Bárbara Morfin, RN SN HOME VISIT [...] CP assessment, hospital bed, constipation Mirilax use, HOME SUPERVISOR supervisory if necessary, Covid screening s/s, oxygen [...] including precautions to avoid smoking, static electricity, cafeteria helper lights on gas stoves and water heaters, [...] cg coming in to fill the pill certified financial planner for her and her . Pt [...] Completed documented in this encounter Care Teams Car Sealer Relationship Specialty Start Date End Date Hoang Castellanos, INFORMATION ARCHITECT [address] [place] [address] PCP - General Family Medicine 03/12/20 documented as of this encounter
--- OUTSIDE RECORDS SUMMARY | 2024-08-07 14:06 | XMS_ITS | Encounter Summary ---
Author Organization [facility] [place] [address] Care Team Providers Care Cook Helper Preserves Name Role Phone Hoang Castellanos APRN Primary Care Provider Reason for Referral * Home Health Care (Routine) - Closed Specialty Diagnoses / Procedures Referred By Contdavide t Referred To Contact Diagnoses Cervical spondylosis with myelopathy Adri Moe MD [address] [place] [address] [address] [address] [phone] Referral ID Status Reason Start Date Expiration Date V isits Requested Visits Authorized [id number] Closed Consult, Test & Treat 11/24/2021 11/24/[phone] Encounter Details Date Type Department Care Team (Late st Contact Info) Description 11/24/2021 Transcribe Orders [facility] Incoming Referrals [phone] Adri Moe MD [address] [place] [phone] Cervical spondylosis with myelopathy Social History Tobacco [...] myelopathy documented in this encounter Care Teams Cook Helper Preserves Relationship Specialty Start Date End Date Hoang Castellanos, INFORMATION SERVICES MANAGER [address] [place] [address] PCP - General Family Medicine 03/12/20 documented as of this encounter
--- OUTSIDE RECORDS SUMMARY | 2024-08-07 14:06 | XMS_ITS | Encounter Summary ---
Author Organization [facility] Address [facility] [place] [address] Care Team Providers Care Leather Drier Name Role Phone Hoang Castellanos APRN Primary Care Provider Encounter Details Date Type Department Care Team (Late st Contact Info) Description 12/28/2021 9:30 AM EDT Home Care Visit [facility] [address] [place] [phone] Renetta Ta, OT OT HOME VISIT [...] leisure, documented in this encounter Care Teams Leather Drier Relationship Specialty Start Date End Date Hoang Castellanos APRN [address] [place] [address] PCP - General Family Medicine 03/12/20 documented as of this encounter
--- OUTSIDE RECORDS SUMMARY | 2024-08-07 14:06 | XMS_ITS | Encounter Summary ---
Author Organization Formerly [facility] [place] [address] Care Team Providers Care Fashion Supervisor Name Role Phone Hoang Castellanos APRN Primary Care Provider Encounter Details Date Type Department Care Team (Late st Contact Info) Description 11/26/2021 Telephone Primary Care at [facility] [phone] Jeannie Luciano, RN Social History Tobacco Use [...] send notes and any further ? call [phone] Message received from Raven at [facility]. 1)any sutures can be removed at [...] PM EDT Message received from Paige at [facility] calling back to discuss. Tried to [...] Message received from Bárbara Morfin RN with [facility] that she admitted Jeannie to services today but she had questions about 1)suture removal--she knows there were artie removed but said Jeannie still has sutures and they weren't sure when they needed to be removed 2)questions about hospital bed 3) questions about O2. Reviewed the d/c summary from [facility] and there was nothing noted about sutures, nothing noted about her positional needs for hospital bed and according to the D/C summary, respiratory therapy at [facility] was ordering an overnight oximetry while she was admitted and they would order the O2. We have not received notes from the overnight oximetry and those will be needed per Medicare guidelines. Call placed to [facility] asking for more information; awaiting call back. documented in this encounter Plan of Treatment Not on file documented as of this encounter Visit Diagnoses Not on filedocumented in this encounter Care Teams Fashion Supervisor Relationship Specialty Start Date End Date Hoang Castellanos, FOOTWEAR FACTORY WORKER [address] [place] [address] PCP - General Family Medicine 03/12/20 documented as of this encounter
--- OUTSIDE RECORDS SUMMARY | 2024-08-07 14:06 | XMS_ITS | Encounter Summary ---
[place] [address] Care Team Providers Care Anglesmith Name Role Phone Mark Holguin APRN Primary Care Provider Encounter Details Date Type Department Care Team (Late st Contact Info) Description 11/26/2021 Telephone Primary Care at [facility] [address] [place] [phone] Yvonne Luciano, RN Social History Tobacco Use [...] hospital bed. thanks * Telephone Encounter - vYonne Luciano RN - 11/26/2021 10:02 AM EDT Message received from pt asking for an Rx for a hospital bed after her recent D/C from [facility] after neck surgery. No D/C notes in chart. Called [facility] and they are re-faxing now. documented in this encounter Plan of Treatment Not on file documented as of this encounter Visit Diagnoses Diagnosis Cervical spondylosis with myelopathy documented in this encounter Care Teams Anglesmith Relationship Specialty Start Date End Date Mark Holguin APRN [address] [place] [address] PCP - General Family Medicine 03/12/20 documented as of this encounter
--- OUTSIDE RECORDS SUMMARY | 2024-08-07 14:06 | XMS_ITS | Encounter Summary ---
Author Organization [facility] [place] [address] Care Team Providers Care Bicycle Repairman Name Role Phone Hoang Castellanos APRN Primary Care Provider Reason for Visit * Home Health Care (Routine) - Closed Specialty Diagnoses / Procedures Referred By Vanita t Referred To Contact Diagnoses Cervical spondylosis with myelopathy Adri Moe MD [address] [place] [address] [address] Referral ID Status Reason Start Date Expiration Date V isits Requested Visits Authorized [id number] Closed Consult, Test & Treat 11/24/2021 11/24/[id number] Encounter Details Date Type Department Care Team (Late st Contact Info) Description 12/02/2021 9:00 AM EDT Home Care Visit [address] [address] Renetta Ta, OT OT EVALUATION [...] on filedocumented in this encounter Care Teams Bicycle Repairman Relationship Specialty Start Date End Date Hoang Castellanos APRN [address] [place] [address] PCP - General Family Medicine 03/12/20 documented as of this encounter
--- OUTSIDE RECORDS SUMMARY | 2024-08-07 14:06 | XMS_ITS | Encounter Summary ---
[place] [address] Care Team Providers Care Energy Crop Farmer Name Role Phone Hoang Castellanos APRN Primary Care Provider Encounter Details Date Type Department Care Team (Late st Contact Info) Description 01/06/2022 Orders [place] [address] Tegan Garcia RN Cervical spinal stenosis Social [...] who have questions please contact the health hospice care sales consultant that requested your imaging first. ? Electronically signed by: Naomi Ricci MD, [facility] ([phone]), at 01/21/2022 11:34 AM Narrative 01/21/2022 11:34 [...] cervical lateral mass screws and rods at [id number] for subtle differences in projection. No hardware [...] patients who have questions please contactthe health hospice care sales consultant that requested your imaging first. Campos Puente MD IMG DX ORDERABLES documented in this encounter Visit Diagnoses Diagnosis Cervical spinal stenosis Spinal stenosis in cervical region Cervical spinal stenosis Spinal stenosis in cervical region documented in this encounter Care Teams Energy Crop Farmer Relationship Specialty Start Date End Date Hoang Castellanos, CDL PROGRAM COORDINATOR [address] [place] [address] PCP - General Family Medicine 03/12/20 documented as of this encounter
--- OUTSIDE RECORDS SUMMARY | 2024-08-07 14:06 | XMS_ITS | Encounter Summary ---
Author Organization [facility] Address [facility] [place] [address] Care Team Providers Care Thoracic Medicine Specialist Name Role Phone Hoang Castellanos APRN Primary Care Provider [phone] Encounter Details Date Type Department Care Team (Late st Contact Info) Description 12/18/2021 10:00 AM EDT Home Care Visit [facility] [address] [place] [phone] Renetta Ta, OT OT HOME VISIT [...] slept in a retirement (including now)? No 12/01/2021 Sex and Gender [...] MIN A FOR DRESSING AND USE OF CONSOLE ASSEMBLER FOR UNDERWEAR. HER IS BACK AT THE HOSPITAL AND MADE COMMENTS TO THIS RECOVERY OPERATOR THAT SHE IS WORRIED ABOUT HER SAFETY BEING HOME ALONE AND COOKING.FABIANA DUDLEY, FROM [facility] PCP OFFICE, CALLED DURING OT VISIT [...] MIN A FOR DRESSING AND USE OF CONSOLE ASSEMBLER FOR UNDERWEAR. HER IS BACK AT THE HOSPITAL AND MADE COMMENTS TO THIS RECOVERY OPERATOR THAT SHE IS WORRIED ABOUT HER SAFETY [...] living documented in this encounter Care Teams Thoracic Medicine Specialist Relationship Specialty Start Date End Date Hoang Castellanos, SUPERVISOR MELT HOUSE [address] [place] [address] PCP - General Family Medicine 03/12/20 documented as of this encounter
--- OUTSIDE RECORDS SUMMARY | 2024-08-07 14:06 | XMS_ITS | Encounter Summary ---
Author Organization [facility] Address [facility] [place] [address] Care Team Providers Care Director Data Name Role Phone Hoang Castellanos APRN Primary Care Provider Reason for Visit * Reason Onset Date Comments Social Service Coordination 12/18/2021 Encounter Details Date Type Department Care Team (Late st Contact Info) Description 12/18/2021 Telephone Primary Care at [facility] [address] [place] [phone] Jeannie Luciano, RN Social Service Coordination Social [...] PM EDT Message received from pt's sister (aRe Mittal) with concerns about Jeannie. Jeannie's is the hospital and Jeannie has a hard doing anything for herself. She isn't able to cook anything at home, she doesn't drive, and has difficulty getting into her hospital bed without assistance. Rae was concerned Jeannie couldn't get to the bathroom alone. Rae said she's been visiting but will be ret'd home to [place] tomorrow. No release on file to speak with rae; placed call to pt. Jeannie said ERMA Jackson from [facility] was there at the time. Renetta did [...] the ceiling so she has to walk usp into the room before she can turn [...] see if Sanjuana would be willing to picking machine operator some easy to prepare frozen foods that are also healthy options. Jeannie does get Meals On Wheels on weekdays and they also have frozen meal options. Jeannie will call them to arrange delivery. Jeannie has [facility] PT, OT, WOUND CARE TECHNICIAN and SN who will visit her regularly. [facility] Airport Location Manager, Angela was scheduled to visit Jeannie today [...] emergencies. Jeannie is aware she can call [facility] 14/02 with any questions or concerns. She knows she can also call the clinic at any time; if it's after hours, the provider backshoe person will be paged. Jeannie or Rae will call 911 if needed. Jeannie did give me verbal permission to speak with her sister about our conversation and the plan put in place. documented in this encounter Plan of Treatment Not on file documented as of this encounter Visit Diagnoses Not on filedocumented in this encounter Care Teams Director Data Relationship Specialty Start Date End Date Hoang Castellanos, ELECTRICAL ACCESSORIES II ASSEMBLER [address] [place] [address] PCP - General Family Medicine 03/12/20 documented as of this encounter
--- OUTSIDE RECORDS SUMMARY | 2024-08-07 14:06 | XMS_ITS | Encounter Summary ---
Author Organization [facility] [place] [address] Care Team Providers Care Visual Associate Name Role Phone Hoang Castellanos APRN Primary Care Provider Reason for Visit * Home Health Care (Routine) - Closed Specialty Diagnoses / Procedures Referred By Vanita t Referred To Contact Diagnoses Cervical spondylosis with myelopathy Adri Moe MD [address] [place] [address] [address] Referral ID Status Reason Start Date Expiration Date V isits Requested Visits Authorized [id number] Closed Consult, Test & Treat 11/24/2021 11/24/[phone] Encounter Details Date Type Department Care Team (Late st Contact Info) Description 11/30/2021 9:00 AM EDT Home Care Visit [address] [address] Raj Nowak, PT PT EVALUATION [...] 10.30.21. SHE [facility], RETURNED HOME ON 11.24.21. PATIENT LIVES AT HOME WITH HER IN 1ST FLOOR APARTMENTWITH RAMP TO ENTER. PATIENT RECEIVED [facility] PT SERVICES PRIOR TO SURGERY [...] TO CONTINUE WITH SUPINE/SEATED EXERCISES INSTRUCTED PER [facility]. SHE VERBALIZES UNDERSTANDING. SHE WILL CONTINUE TO BENEFIT FROM [facility] HH PT SERVICES IN ORDER TO FURTHER IMPROVE HER STRENGTH, SAFETY, AND ACTIVITY TOLERANCE, WITH GOAL FOR EVENTUAL DC TO OPPT. documented in this encounter Plan of Treatment Not on file documented as of this encounter Visit Diagnoses Not on filedocumented in this encounter Care Teams Visual Associate Relationship Specialty Start Date End Date Hoang Castellanos APRN [address] [place] [address] PCP - General Family Medicine 03/12/20 documented as of this encounter
--- OUTSIDE RECORDS SUMMARY | 2024-08-07 14:06 | XMS_ITS | Encounter Summary ---
Author Organization [facility] Address [facility] [place] [address] Care Team Providers Care Watch Crystal Edge Grinder Name Role Phone Hoang Castellanos APRN Primary Care Provider Encounter Details Date Type Department Care Team (Late st Contact Info) Description 01/06/2022 11:00 AM EDT Home Care Visit [facility] [address] [place] [phone] Meena Greenwood LPN SN HOME VISIT [...] Details Visit Type -SN Home Visit Discipline -Shelter Problems Problem Description Start Date Status Goals [...] in this visit Pain/Comfort Deficit Disciplines: SN, ROCKET ENGINE COMPONENT MECHANIC Pain/comfort deficit related to back and shoulders from cervical surgery. 11/26/2021 Active 1 goal linked to scheduled/docume nted intervention 2 goal interventions scheduled/documen hsabana in this visit Nutritional Concerns - Diabetes [...] including precautions to avoid smoking, static electricity, check pilot lights on gas stoves and water [...] patient. documented in this encounter Care Teams Watch Crystal Edge Grinder Relationship Specialty Start Date End Date Hoang Castellanos, POUCH MAKING MACHINE OPERATOR [address] [place] [address] PCP - General Family Medicine 03/12/20 documented as of this encounter
--- OUTSIDE RECORDS SUMMARY | 2024-08-07 14:06 | XMS_ITS | Encounter Summary ---
Author Organization [facility] Address [facility] [place] [address] Care Team Providers Care Coal Washer Name Role Phone Hoang Castellanos APRN Primary Care Provider [phone] Reason for Visit * Reason Onset Date Comments Prior Authorization 12/02/2021 Encounter Details Date Type Department Care Team (Late st Contact Info) Description 12/02/2021 Telephone Primary Care at [facility] [address] [place] [address] Gautam Davidson Prior Authorization Social History Tobacco [...] on filedocumented in this encounter Care Teams Coal Washer Relationship Specialty Start Date End Date Hoang Castellanos APRN [address] [place] [address] PCP - General Family Medicine 03/12/20 documented as of this encounter
--- OUTSIDE RECORDS SUMMARY | 2024-08-07 14:06 | XMS_ITS | Encounter Summary ---
Author Organization [facility] Address [facility] [place] [address] Care Team Providers Care Fabric Separator Operator Name Role Phone Hoang Castellanos APRN Primary Care Provider Encounter Details Date Type Department Care Team (Late st Contact Info) Description 12/14/2021 9:45 AM EDT Home Care Visit [facility] [address] [place] [phone] Jolly Haddad LNA AIDE HOME VISIT [...] Status Goals Interve ntions Personal Care Disciplines: CENTERLESS GRINDING MACHINE ADJUSTER Aide to assist patient with personal cares as directed. 11/26/2021 Active 1 goal linked to scheduled/documen leela intervention 6 goal interventions scheduled/document ed in this visit Activity Disciplines: CENTERLESS GRINDING MACHINE ADJUSTER Aide to assist patient activity tasks as [...] by aide as ordered Completed Transfers Description: CENTERLESS GRINDING MACHINE ADJUSTER assist with transfers using Tub chair with extension Problem:Activity Goal:Patient activity needs will be completed by aide as ordered Completed Assist with Ambulation Description: CENTERLESS GRINDING MACHINE ADJUSTER assist with ambulation using walker or wheelchair Problem:Activity Goal:Patient activity needs will be completed by aide as ordered Completed Assist Repositioning Description: Assist with repositioning patient. Problem:Activity Goal:Patient activity needs will be completed by aide as ordered Completed documented in this encounter Care Teams Fabric Separator Operator Relationship Specialty Start Date End Date Hoang Castellanos, CIGARETTE FILTER INSPECTOR [address] [place] [address] PCP - General Family Medicine 03/12/20 documented as of this encounter
--- OUTSIDE RECORDS SUMMARY | 2024-08-07 14:06 | XMS_ITS | Encounter Summary ---
Author Organization [facility] [place] [address] Care Team Providers Care Metallurgical Engineer Name Role Phone Hoang Castellanos APRN Primary Care Provider Encounter Details Date Type Department Care Team (Late st Contact Info) Description 12/15/2021 Refill Primary Care at [facility] [address] [place] [phone] Yvonne Luciano RN Social History Tobacco Use [...] and adding a cough suppressant at nighttime ([id number] QHS) for about two weeks. Hopefully in [...] ED. Pt verbalized understanding. Note routed to waste minimization technician provider. documented in this encounter Plan of Treatment Not on file documented as of this encounter Visit Diagnoses Not on filedocumented in this encounter Care Teams Metallurgical Engineer Relationship Specialty Start Date End Date Hoang Castellanos APRN [address] [place] [address] PCP - General Family Medicine 03/12/20 documented as of this encounter
--- OUTSIDE RECORDS SUMMARY | 2024-08-07 14:06 | XMS_ITS | Encounter Summary ---
Author Organization [facility] Address [facility] [place] [address] Care Team Providers Care Power Distributor Name Role Phone Hoang Castellanos APRN Primary Care Provider Encounter Details Date Type Department Care Team (Late st Contact Info) Description 12/24/2021 12:30 PM EDT Home Care Visit [facility] [address] [place] [phone] Raj Nowak, PT PT HOME VISIT [...] training documented in this encounter Care Teams Power Distributor Relationship Specialty Start Date End Date Hoang Castellanos, SAM [address] [place] [address] PCP - General Family Medicine 03/12/20 documented as of this encounter
--- OUTSIDE RECORDS SUMMARY | 2024-08-07 14:07 | XMS_ITS | Encounter Summary ---
Author Organization [facility] Address [facility] [place] [address] Care Team Providers Care Automobile Painter Name Role Phone Hoang Castellanos APRN Primary Care Provider Reason for Referral * Home Health Care (Routine) - Closed Specialty Diagnoses / Procedures Referred By Contac t Referred To Contact Physical Therapy Diagnoses Cervicalgia Cervical spinal stenosis Generalized weakness Hoang Castellanos APRN [address] [place] [address] [facility] [address] [address] Referral ID Status Reason Start Date Expiration Date V isits Requested Visits Authorized [id number] Closed Continuity of Care 08/31/2021 02/27/2022 12 12 Encounter Details Date Type Department Care Team (Latest Contact Info) Description 08/31/2021 10:00 AM EST TH Visit (TeleHealth) Primary Care at [facility] [address] [place] [address] Hoang Castellanos APRN [address] [place] [address] Cervicalgia; Cervical spinal stenosis; Generalized weakness; Anxiety [...] this encounter Progress Notes * Hoang Castellanos, COMMUNICATIONS INSTRUCTOR - 08/31/2021 10:00 AM EST [facility] Telehealth Encounter Nurse Call: Patient called [...] who presents for a telehealth visit with [facility] Primary Care. She is having surgery coming [...] office this morning. She was sent to hose maker-awaiting inpatient bed to open up. Neck pain Stressful-emotional pain Supposed to get choices plus care, needs to move apts by November 21 [facility] is helping but they are not getting anywhere either. Current CM is Angela ([phone]). Feeling hopeless, would like to be able [...] others Anxiety, PTSD Not seeing psychiatry through [facility] anymore since they left in July [...] do of a section 8 Nicki in bilingual patient support caseworker from [facility] who are assisting both [...] this encounter. (Established patient total visit time: 17413 - 20min, 02594 - 30 min, 34419 - 40 min; New patient total visit times: 50506 - 30 min, 55567 - 45 min, 65050 - 60 min) documented in this encounter [...] unspecified documented in this encounter Care Teams Automobile Painter Relationship Specialty Start Date End Date Hoang Castellanos APRN [address] [place] [address] PCP - General Family Medicine 03/12/20 documented as of this encounter
--- OUTSIDE RECORDS SUMMARY | 2024-08-07 14:07 | XMS_ITS | Encounter Summary ---
[place] [address] Care Team Providers Care Bridge Crane Operator Name Role Phone Hoang Castellanos APRN Primary Care Provider Encounter Details Date Type Department Care Team (Late st Contact Info) Description 10/05/2021 Telephone [place] [address] Tamar Velazquez Social History Tobacco Use Types [...] ASK: TRAVEL ???Have you travelled outside of [place] ([place], [place], [place], [place], [place], [place]) in the past 14 days??? 2. ASK: [...] Transfer patient to the Covid-19 Hotline Number ([phone]) for further instructions. If 'No' to all of the questions above Is this the first test for Covid 19 If no, please list date of previous test, result, and type of test (Molecular, Antigen, Antibody orunknown): Resides in Nursing/intermediate or other residential setting No Employee or Household Member of Employee No Healthcare Worker No Telephone call placed/received to schedule Covid 19 testing with patient. Ordering provider: Camp[facility] Puente Testing Facility: Date of Testin/05 Time of Testin:30 Symptoms: pre-op Give directions to testing facility. All passengers in the vehicle MUST wear a mask. Leave dogs/pets at home or have them crated/behind a net. documented in this encounter Plan of Treatment Not on file documented as of this encounter Visit Diagnoses Not on filedocumented in this encounter Care Teams Bridge Crane Operator Relationship Specialty Start Date End Date Hoang Castellanos APRN [address] [place] [address] PCP - General Family Medicine 03/12/20 documented as of this encounter
--- OUTSIDE RECORDS SUMMARY | 2024-08-07 14:07 | XMS_ITS | Encounter Summary ---
[place] [address] Care Team Providers Care Trolley Car Mechanic Name Role Phone Hoang Castellanos APRN Primary Care Provider Reason for Referral * Diagnostic Test (Routine) - Closed Specialty Diagnoses / Procedures Referred By Contac t Referred To Contact Radiology Diagnoses Cervical spondylosis Procedures CT Cervical Spine wo Contrast Campos Puente MD [facility] [place] [address] [facility] [place] [address] Referral ID Status Reason Start Date Expiration Date V isits Requested Visits Authorized [id number] Closed Specialty Service Requested 08/09/2021 02/06/2023 1 1 Reason for Visit * Diagnostic Test (Routine) - Closed Specialty Diagnoses / Procedures Referred By Contac t Referred To Contact Radiology Diagnoses Cervical spondylosis Procedures CT Cervical Spine wo Contrast Campos Puente MD [facility] [place] [address] [facility] [place] [address] Referral ID Status Reason Start Date Expiration Date V isits Requested Visits Authorized [id number] Closed Specialty Service Requested 08/09/2021 02/06/2023 1 1 Encounter Details Date Type Department Care Team (Latest Contact Info) Description 08/18/2021 7:49 AM EST - 08/18/2021 11:59 PM EST Hospital Encounter CT Scan at [facility] [place] [address] Campos Puente MD [facility] [place] [address] Cervical spondylosis Discharge Disposition: Home Social History [...] Sustained Release 24 hrIndications:Coronary artery disease involving [place] coronary artery of [place] heart without angina pectoris TAKE ONE (1) TABLET BY MOUTH EVERY DAY 28 tablet 02/17/2021 01/18/2022 FeroSuL 325 mg (65 mg iron) Tablet TAKE ONE (1) TABLET BY MOUTH THREE TIMES A WEEK 12 tablet 11/26/2020 10/26/2021 prazosin (Minipress) 2 mg Capsule TAKE THREE (3) CAPSULES BY MOUTH DAILY AT BEDTIME 84 each 10/31/2020 09/28/2021 Ventolin HFA 90 mcg/actuation HFA Aerosol InhalerIndications:Armhole Baster Jumpbasting randell obstructive pulmonary disease, unspecified COPD type [...] interpretation and agree with the findings, Siomara Rahamn MD at 08/18/2021 10:43 AM Thank you for letting us participate in the care of this patient. ??If you are a health care provider and have any questions regarding this report, please contact the number below. ??For patients who have questions please contact the health child adolescent care that requested your imaging first. ? Electronically signed by: Siomara Rahman MD, [facility] ([phone]), at 08/18/2021 10:43 AM Narrative 08/18/2021 10:43 [...] who have questions please contactthe health child adolescent care that requested your imaging first. Campos Puente MD IMG CT ORDERABLES documented in this encounter Visit Diagnoses Diagnosis Cervical spondylosis Cervical spondylosis without myelopathy documented in this encounter Care Teams Trolley Car Mechanic Relationship Specialty Start Date End Date Hoang Castellanos, SUPERINTENDENT GREENS [address] [place] [address] PCP - General Family Medicine 03/12/20 documented as of this encounter
--- OUTSIDE RECORDS SUMMARY | 2024-08-07 14:07 | XMS_ITS | Encounter Summary ---
Author [facility] [place] [address] Care Team Providers Care Child Care Director Name Role Phone Hoang Castellanos APRN [...] Expiration Date Visits Re quested Visits Authorized [id number] 1 1 Encounter Details Date Type Department Care Team (Latest Contact Info) Description 10/27/2021 10:30 AM EDT Public [place] [address] Encounter for preprocedure screening laboratory testing for [...] EDT) SARS-CoV-2 RNA Not Detected Not Detected [facility] Comment: This result [...] diagnosis of COVID-19 is performed using the Luminary Micronity m SARS-CoV-2 Assay as authorized by the FDA Emergency Use Authorization (EUA). This EUA assay is intended for In-vitro Diagnostic (IVD) use with respiratory specimens such as nasopharyngeal swabs collected from individuals during the acute phase of infection. This assay is performed based on the instructions for use provided by [employer] and additional guidance provided by CDC and FDA. Testing is performed in the [facility] within the Department of Pathology and Laboratory Medicine at [facility], certified under the Clinical Laboratory Improvement [...] fact sheets at the following FDA website: https://www.fda.gov/medical-devices/gtvsxnshobp-zfiyfty-3531-aeoim-31-jubivwpnd- use-a pldardiokoimz-saihnfh-vsvffgm/dvnfy-zgdxexkhnin-mypn SARS-CoV-2 RNA Source WOODWORKER HELPER Swab [facility] Nasopharyngeal Swab 10/28/19 11:32 AM EDT 10/27/2021 11:32 AM EDT Comment:Symptoms->Asymptomat ic Narrative Resulting Agency Comment Spec In Lab Campos Puente MD MOLECULAR ORDERABLES [facility] [place] [address] documented in this encounter Visit Diagnoses Diagnosis Encounter for preprocedure screening laboratory testing for COVID-19 documented in this encounter Care Teams Child Care Director Relationship Specialty Start Date End Date Hoang Castellanos APRN [address] [place] [address] PCP - General Family Medicine 03/12/20 documented as of this encounter
--- OUTSIDE RECORDS SUMMARY | 2024-08-07 14:07 | XMS_ITS | Encounter Summary ---
Author Organization [facility] [place] [address] Care Team Providers Care Dispatcher Motor Vehicle Name Role Phone Hoang Castellanos APRN Primary Care Provider Reason for Referral * Home Health Care (Routine) - Closed Specialty Diagnoses / Procedures Referred By Contdavide t Referred To Contact Home Health Agency Diagnoses Cervical spondylosis Cervicalgia Eden Lemos MD [address] [place] [address] Visiting [facility] & [address] [address] Referral ID Status Reason Start Date Expiration Date V isits Requested Visits Authorized [id number] Closed PT/OT 09/04/2021 03/03/2022 1 1 Encounter Details Date Type Department Care Team (Late st Contact Info) Description 09/03/2021 Telephone Primary Care at [facility] [address] [place] [address] Lay Rosas, RN Social History Tobacco Use [...] message from Elena a PT from the [facility] stating they admitted Jeannie to their service and will provide PT Twice a week for six weeks. Elena is also requesting a referral for OT and a medical laboratory technician which she feels Jeannie can benefit from. Requested routed to provider documented in this encounter Plan of Treatment Scheduled Referrals Name Type Priority Associated Diagnoses Orde r Schedule Referral to Home Health - Clinic Use Outpatient Referral Routine Syncope, unspecified syncope type Ordered: 09/04/2021 documented as of this encounter Visit Diagnoses Diagnosis Syncope, unspecified syncope type documented in this encounter Care Teams Dispatcher Motor Vehicle Relationship Specialty Start Date End Date Hoang Castellanos APRN [address] [place] [address] PCP - General Family Medicine 03/12/20 documented as of this encounter
--- OUTSIDE RECORDS SUMMARY | 2024-08-07 14:07 | XMS_ITS | Encounter Summary ---
Author Organization [facility] [place] [address] Care Team Providers Care Drafter Mechanical Name Role Phone Hoang Castellanos APRN Primary Care Provider Reason for Visit * Reason Comments Medication Refill Encounter Details Date Type Department Care Team (Late st Contact Info) Description 09/01/2021 Refill Primary Care at [facility] [address] [place] [phone] Hoang Castellanos APRN [address] [facility] [place] [address] Benign essential hypertension; Hyperlipidemia, unspecified hyperlipidemia type; [...] Fill Date: 10/02/2020 Number Dispensed and Refills: 56 Last Related Office Visit: 2021 Upcoming Appointment: Visit date not found Requested Prescriptions Pending Prescriptions Disp Refills ??? amLODIPine (Norvasc) 5 mg Tablet [Pharmacy Med Name: amLODIPine Besylate 5 MG Tablet] 28 [id number] Sig: TAKE ONE (1) TABLET BY MOUTH [...] reflux documented in this encounter Care Teams Drafter Mechanical Relationship Specialty Start Date End Date Hoang Castellanos, PRINT LINE OPERATOR [address] [place] [address] PCP - General Family Medicine 03/12/20 documented as of this encounter
--- OUTSIDE RECORDS SUMMARY | 2024-08-07 14:07 | XMS_ITS | Encounter Summary ---
Author Organization [facility] [place] [address] Care Team Providers Care Wood Casket Assembler Name Role Phone Hoang Castellanos APRN Primary Care Provider [phone] Reason for Visit * Reason Comments Medication Refill Encounter Details Date Type Department Care Team (Late st Contact Info) Description 09/14/2021 Refill Primary Care at [facility] [address] [place] [phone] Hoang Castellanos APRN [address] [place] [address] Cervicalgia; Chronic pain syndrome Social History Tobacco [...] syndrome documented in this encounter Care Teams Wood Casket Assembler Relationship Specialty Start Date End Date Hoang Castellanos, DRUG SAFETY SPECIALIST [address] [place] [address] PCP - General Family Medicine 03/12/20 documented as of this encounter
--- OUTSIDE RECORDS SUMMARY | 2024-08-07 14:07 | XMS_ITS | Encounter Summary ---
Author Organization [facility] [place] [address] Care Team Providers Care Cargo Operations Agent Name Role Phone Hoang Castellanos APRN Primary Care Provider Encounter Details Date Type Department Care Team (Late st Contact Info) Description 08/11/2021 Telephone [place] [address] Campos Puente MD [facility] [place] [address] Social History Tobacco Use Types Packs/Day Years [...] scheduling surgery. Please review and call patient [phone] Thank you Marli (Email sent to [facility]) * Telephone Encounter - Marli Hernández - 08/11/2021 11:40 AM EST Called pt scheduled CT C-spine for 08/18 send email and IB to PAB to review on 08/19 then schedule surgery ~~~~~~~~~~~~~~~~~~~~~~~~~~~~~~~ Jeannie Rico - 08/06/21 Campos Puente MD Sent: Jennifer August 09, 2021 10:50 AM To: P [facility] Neurosurgery [place] ?? Message CT cervical spine; have me review and then schedule surgery documented in this encounter Plan of Treatment Not on file documented as of this encounter Visit Diagnoses Not on filedocumented in this encounter Care Teams Cargo Operations Agent Relationship Specialty Start Date End Date Hoang Castellanos, SAM [address] [place] [address] PCP - General Family Medicine 03/12/20 documented as of this encounter
--- OUTSIDE RECORDS SUMMARY | 2024-08-07 14:07 | XMS_ITS | Encounter Summary ---
Author Organization [facility] Address [facility] [place] [address] Care Team Providers Care Medication Aid Name Role Phone Hoang Castellanos APRN Primary [...] Expiration Date Visits Re quested Visits Authorized [id number] 1 1 Encounter Details Date Type Department Care Team (Late st Contact Info) Description 10/30/2021 8:45 AM EDT Anesthesia Event [place] [address] Pat Leblanc MD [facility] [place] [address] Evelia Dickerson [place] [address] Anesthesia Record Procedure Summary Procedure Name Responsible [...] 08; median cubital vein (antecubital fossa), left; pivp-rtq-pejvis catheter system; Anatomical Landmarks; US Not Used; [...] 0916; metacarpal vein (top of hand), right; zlfq-yga-kuswlf catheter system; Anatomical Landmarks; 20 gauge; Leblanc MD; LDA not present upon assessment; 10/31/21; 1717 10/30/21 0916 by Shan Wheeler, METAL BUILDING ASSEMBLER 10/31/21 1717 by Leila Sanchez RN Arterial Line 10/30/21; 0923; radi al artery, right; 20 gauge; Guidewire, Anatomical Landmarks; continuous blood pressure monitoring; MD Deana; Sterile Prep, Sterile Gloves; 10/30/21; 19310/30/21 0923 by Shan Wheeler, METAL BUILDING ASSEMBLER 10/30/21 193 by Anna Cesar RN (RETIRED) Peripheral IV Line - Single Lumen 10/30/21; 0933; great saphenous vein (medial side of leg), right; chkk-arr-bshnxm catheter system; Anatomical Landmarks; 18 gauge; S.Liam, METAL BUILDING ASSEMBLER; 10/30/21; 1513 10/30/21 0933 by Shan Wheeler, METAL BUILDING ASSEMBLER 10/30/21 1513 by Tom Hernandez RN Incision [...] Procedure Summary Date: 10/30/21 Room / Location: [facility] OR [address] [place] [address] MAIN OR Anesthesia Start: 844 Anesthesia Stop: [...] All Anesthesia Providers: Anesthesiologist: Pat Leblanc MD METAL BUILDING ASSEMBLER: Shan Wheeler CRNA Vitals Value Taken Time BP 177/97 10/30/21 1632 Temp 36.3 ??C (97.3 ??F) 10/30/21 1515 Pulse 69 10/30/21 1646 Resp 19 10/30/21 1646 SpO2 97 % 10/30/21 1649 Pain Level 5 10/30/21 1620 Vitals shown include unvalidated device data. Patient Location: PACU/[facility] Level of Consciousness: Conscious but Sleepy [...] RS Psychiatry ??? Osteoporosis DEXA done at [facility] on 10/29/15: osteoporosis at the left hip [...] performed by Ken Sanders MD at [facility] ENDOSCOPY ??? PRO UPPER GI ENDOSCOPY, BIOPSY N/A 09/19/2018 UPPER GASTROINTESTINAL ENDOSCOPY,WITH BIOPSY SINGLE OR MULTIPLE (WRVU 2.49) performed by Tyron Mercado MD at [facility] ENDOSCOPY ??? TONSILLECTOMY ??? UPPER GI ENDOSCOPY, EXAM 12/04/2010 UPPER GI ENDOSCOPY performed by DEE WRIGHT at [facility] ENDOSCOPY Social History Tobacco Use ??? [...] risks discussed with patient. Plan discussed with METAL BUILDING ASSEMBLER. Anesthesia Screening Note: Date and Time of [...] is normal. ASSESSMENT: Jeannie presented to the [facility] clinic today with her envelope fold operator Angela to discuss anesthesia for her upcoming cervical spine decompression. She has a history of CAD requiring coronary angioplasty with stent placement. She denies chest pain or lightheadedness. She had an echocardiogram in December which showed an EF of 65%, no significant valve disease. A stress test was performed in [facility] of this year which was [...] mg documented in this encounter Care Teams Medication Aid Relationship Specialty Start Date End Date Hoang Castellanos, WRITING MANAGER [address] [place] [address] PCP - General Family Medicine 03/12/20 documented as of this encounter
--- OUTSIDE RECORDS SUMMARY | 2024-08-07 14:07 | XMS_ITS | Encounter Summary ---
[place] [address] Care Team Providers Care Assistant Spa Manager Name Role Phone Hoang Castellanos APRN [...] Expiration Date Visits Re quested Visits Authorized [id number] 1 1 Encounter Details Date Type Department Care Team (Late st Contact Info) Description 10/30/2021 8:35 AM EDT - 10/30/2021 1:12 PM [place] [address] Campos Schumacher MD [facility] [place] [address] @ARTHRODESIS, POSTERIOR CERVICAL SPINE (WRVU 17.4) Social [...] the last few months. telephone consent by [facility] Course: Jeannie Rico presented 10/30/2021 for [...] who have questions please contact the health home visit field care manager that requested your imaging first. Electronically signed by: YANET GANN, [facility] ([phone]), at 10/31/2021 10:[address] Head wo [...] who have questions please contact the health home visit field care manager that requested your imaging first. Electronically signed by: Janie Aguilar MD, [facility] ([phone]), at 11/02/2021 12:47 AM XR Chest PA [...] who have questions please contact the health home visit field care manager that requested your imaging first. Electronically signed by: Tahira Medrano MD, [facility] ([phone]), at 11/02/2021 11:12 AM Pending Studies and Lab Data: na Discharge Condition: Stable Discharge to: rehab Future Appointments and Orders Future Appointments and Orders Future Appointments Provider Department Dept Phone 12/03/2021 10:30 AM Campos Schumacher MD Neuro[place] [facility] Arrive at: Optometric Technician Area [phone] 12/22/2021 9:45 AM Michael Espinoza MD Endocrinology at [facility] Arrive at: Optometric Technician Area 3A [phone] Future Orders Complete By Expires XR Cervical Spine 2 or 3 Views [68074 Custom] 12/04/2021 (Approximate) 01/04/2022 Process Instructions: Scheduling Instructions: Questions: Where will study be performed?: [facility] Radiology Portable exam?: Reason for exam and [...] 30 gauge Misc 1 each by [facility].(Non-Drug; Combo Route) route daily. 1 each Quantity: [...] anticoagulant, and non-steroidal anti-inflammatory (NSAIDs) drugs. Common ordw-toh-lwbebgk medications which should be avoided include Aspirin, [...] to pass. These medications can be obtained kwhg-yai-rfqospo and their use is recommended on an [...] retention Constipation not relieved by diet and/or guyl-uda-lryniub stool softeners and laxatives Nausea/vomiting (upset stomach) [...] tobacco dependence clinics in these locations: ??? [facility]: [place] ??? [facility] Tobacco Treatment [place], [place] Other Programs at [facility] in [place] ??? Living Free of Tobacco support group: For anyone who has quit tobacco or is considering quitting tobacco. [facility] Health Education Center, Level 4, [place] 3:30 to 4:30 p.m. on the tuesday of every month. Other Programs in the Area ??? [facility] in [place] One-on-one counseling, hypnosis. Cassidy Jamison ??? [facility] in [place], [place] One-on-one counseling, QuitLine, classes. Lay Ferris ??? [facility]: One-on-one counseling. All ages and incomes eligible. Sakshi Camacho [facility]: Classes & support group. Behzad Schwab ??? [facility] in [place], [place] One-on-one counseling, QuitLine, classes, hypnosis therapy. Ruth Corey Information about Quitting Smoking and Tobacco See our Quitting Smoking - Information and Materials page ([email or web address]://[email or web address]/medical- information/smoking/information_on_quitting_smoking.html) for educational information about quitting smoking, downloadable smoking cessation materials, podcasts, websites, helplines, and more. FOLLOW UP PLAN: Incision: [x] Your artie need to be removed on 11/13/2021. You can get them removed by coming into our office, PCP office, or at rehab. a Appointments: Please follow up in the Neurosurgery Clinic in 4-6 weeks. Please call the Neurosurgery Office at [phone] if you do not receive a scheduled appointment within two weeks. Your follow-up appointment will be with: [x] Dr. Schumacher Follow-up Imaging: [x] XR - Cervical HOW TO REACH NEUROSURGERY Office Hours: Tuesday through Tuesday, 8am-5pm. Call . On weekends or after office hours: Call [phone] and ask the box covering machine operator to page the Neurosurgery Resident/Advanced Practice Provider long term care phlebotomist. IMPORTANT PHONE NUMBERS: Outpatient Nurse (Karen Belle) Inpatient Nurses Neurosurgical Resident/Advanced Practice Provider On-Call (after 5pm or before 8am) Neurosurgery offices (Tuesday through Tuesday between 8am-5pm): Adult Neurosurgery Dr. Remy Green Pediatric Neurosurgery Dr. Cassidy Funes Advanced Practice Providers Prudence Heaton, Nurse Practitioner (outpatient) Cheryl Patel, Physician Computerized Mill Mill Recorder (inpatient) Mabel Metcalf, Nurse Practitioner (inpatient) Brandi Chiu, Physician Computerized Mill Mill Recorder (inpatient) Brandi Benavides, Physician Computerized Mill Mill Recorder (inpatient) Karen Barksdale, Nurse Practitioner (outpatient: vascular) Amanda Mendez, Physician Computerized Mill Mill Recorder (outpatient: spine) David Herring, Nurse Practitioner (inpatient/outpatient) Freddy Dolan, Physician Computerized Mill Mill Recorder (outpatient) Margo Almodovar, Nurse Practitioner (outpatient: neuro-oncology) HOW TO REACH NEUROSURGERY Office Hours (Tuesday through Tuesday 8am-5pm): Call On weekends or after office hours (after 5pm or before 8am): Call [phone] and ask the box covering machine operator to page the Neurosurgery Resident/Advanced Practice Provider long term care phlebotomist. *Your surgeon may not be inside parts sales (especially after office hours or on the weekend) so be ready totell about yourself and your surgery when you call. Neurosurgery Providers Adult Neurosurgery Dr. Remy Green Pediatric Neurosurgery Dr. Cassidy Funes Advanced Practice Providers Prudence Heaton, Nurse Practitioner (outpatient) Cheryl Patel, Physician Computerized Mill Mill Recorder (inpatient) Mabel Metcalf, Nurse Practitioner (inpatient) Brandi Chiu, Physician Computerized Mill Mill Recorder (inpatient) Dereck Salgado, Nurse Practitioner (outpatient: pediatric) Brandi Benavides, Physician Computerized Mill Mill Recorder (inpatient) Karen Barksdale, Nurse Practitioner (outpatient: vascular) Amanda Mendez, Physician Computerized Mill Mill Recorder (outpatient: spine) David Herring, Nurse Practitioner (inpatient/outpatient) Freddy Dolan, Physician Computerized Mill Mill Recorder (outpatient) Margo Almodovar, Nurse Practitioner (outpatient: neuro-oncology) [...] anticoagulant, and non-steroidal anti-inflammatory (NSAIDs) drugs. Common fxyi-mda-kieshos medications which should be avoided include Aspirin, [...] to pass. These medications can be obtained repp-pzn-wubtlpd and their use is recommended on an [...] retention Constipation not relieved by diet and/or npso-jyt-idsshyx stool softeners and laxatives Nausea/vomiting (upset stomach) [...] have tobacco dependence clinics in these locations: [facility]: [place] [facility] Tobacco Treatment [facility], [place] Other Programs at [facility] in [place] Living Free of Tobacco support group: For anyone who has quit tobacco or is considering quitting tobacco. [facility] Health Education Center, Level 4, [place] 3:30 to 4:30 p.m. on the tuesday of every month. Other Programs in the Area [facility] in [place] One-on-one counseling, hypnosis. Cassidy Jamison [facility] in [place], [place] One-on-one counseling, QuitLine, classes. Lay Ferris [facility]: One-on-one counseling. All ages and incomes eligible. Sakshi Camacho [facility]: Classes & support group. Behzad Schwab [facility] in [place], [place] One-on-one counseling, QuitLine, classes, hypnosis therapy. Ruth Corey Information about Quitting Smoking and Tobacco See our Quitting Smoking - Information and Materials page (http://[email or web address]- information/smoking/information_on_quitting_smoking.html) for educational information about quitting smoking, downloadable smoking cessation materials, podcasts, websites, helplines, and more. FOLLOW UP PLAN: Incision: [x] Your artie need to be removed on 11/13/2021. You can get them removed by coming into our office, PCP office, or at rehab. a Appointments: Please follow up in the Neurosurgery Clinic in 4-6 weeks. Please call the Neurosurgery Office at [phone] if you do not receive a scheduled appointment within two weeks. Your follow-up appointment will be with: [x] Dr. Schumacher Follow-up Imaging: [x] XR - Cervical HOW TO REACH NEUROSURGERY Office Hours: Tuesday through Tuesday, 8am-5pm. Call . On weekends or after office hours: Call [phone] and ask the box covering machine operator to page the Neurosurgery Resident/Advanced Practice Provider long term care phlebotomist. IMPORTANT PHONE NUMBERS: Outpatient Nurse (Karen Belle) Inpatient Nurses Neurosurgical Resident/Advanced Practice Provider On-Call (after 5pm or before 8am) Neurosurgery offices (Tuesday through Tuesday between 8am-5pm): Adult Neurosurgery Dr. Remy Green Pediatric Neurosurgery Dr. Cassidy Funes Advanced Practice Providers Prudence Heaton, Nurse Practitioner (outpatient) Cheryl Patel, Physician Computerized Mill Mill Recorder (inpatient) Mabel Metcalf, Nurse Practitioner (inpatient) Brandi Chiu, Physician Computerized Mill Mill Recorder (inpatient) Brandi Benavides, Physician Computerized Mill Mill Recorder (inpatient) Karen Barksdale, Nurse Practitioner (outpatient: vascular) Amanda Mendez, Physician Computerized Mill Mill Recorder (outpatient: spine) David Herring, Nurse Practitioner (inpatient/outpatient) Freddy Dolan, Physician Computerized Mill Mill Recorder (outpatient) Margo Almodovar, Nurse Practitioner (outpatient: neuro-oncology) [...] Sustained Release 24 hrIndications:Coronary artery disease involving [place] coronary artery of [place]ark[place] heart without angina pectoris TAKE ONE (1) TABLET BY MOUTH EVERY DAY 28 tablet 02/17/2021 01/18/2022 Ventolin HFA 90 mcg/actuation HFA Aerosol InhalerIndications:Honing Machine Try Out Setter randell obstructive pulmonary disease, unspecified COPD [...] 4:02 PM EDT Jeannie Rico discharged to [facility] by ambulance. All belongings sent with patient. KILO removed, incision BUTTERMAKER CONTINUOUS CHURN, skin free from pressure ulcers. Discharge instructions, medications, and follow-up appointments reviewed, education provided on 1300, all questions answered. Report called to [phone] at 1300. Patient instructed to call with concerns. * Parvin Barksdale RN - 11/04/2021 11:44 AM EDT Physician Certification Statement for Non-Emergency Ambulance Services Section I - General Information Jeannie Rico 1960 Medicare Number: [id number] Transport Date: 11/04/21 (PCS is valid for round trips on this date and for all repetitive trips in the 60-day range as noted below.) Origin: [facility] Destination: [facility], [place] Is the patient's stay covered under [...] wheelchair van (i.e. seated during transport, without phlebotomist medical lab assistant or monitoring?): No 4) In addition to [...] ambulance transport. Parvin Barksdale MSN-Ed, RN ACM rehabilitation liaison Office of Care Management Pager #[phone] * Kanu Roberts RN - 11/04/2021 11:23 [...] ?? Continue care plan as documented. * Jeermy Pearson - 11/04/2021 11:11 AM EDTSummary: Discharge Note Office of Care Management/Casting Inspector Patient Name: Jeannie Rico : 1960 Patient has been offered an acute rehab bed at [facility] for today, 11/04/21 [facility] arranged for a 1530 transport. Ambulance will need: Medicare ambulance form completed and signed (MD or Box Lining Machine Feeder RN/STOCK PARTS INSPECTOR) Copy of patient demographics [place] Out of Hospital DNR/DNI order, if active No MD to MD report necessary Please call Nursing Report to , ask for professional development instructor. Info to accompany patient: Copies of Medication Administration Records and IV sheets for past 10 days. Plan: Casting Inspector will be available to the patient and Box Lining Machine Feeder-RN and/or Social Workerfor further assistance. Patient will be discharged to: [facility] Jeremy Pearson, Casting Inspector * Amelie Howell OTA - 11/04/2021 9:37 [...] ?? Safety awareness: impulsive ?? Vision:corrective lenses transportation director ?? minimal vision R eye ?? Strength [...] Therapy Rehabilitation Department SRUTHI Tomas Pager # [phone] Patient status, treatment interventions, and goals discussed [...] Procedure Component Value Units Date/Time COVID-19 PCR [[id number]] Collected: 11/02/21 1615 Lab Status: Final result [...] using the Simplexa COVID-19 Direct Assay by [employer] as authorized by the FDA issued Emergency [...] Department of Pathology and Laboratory Medicine at [facility], certified under the Clinical Laboratory Improvement [...] fact sheets at the following FDA website: https://www.fda.gov/medical-devices/jjelnepopek-dimikhy-4150-ohblm-29-mzkwmdrxr- xbn-xuotaxkjatwkfx-kmbhgcc-devices/nmfqh-funjvunwihm-dgkt SARS-CoV-2 Source AGILE JAVA DEVELOPER Swab COVID-19 PCR [[id number]] Collected: 10/27/21 1132 Lab Status: Final result [...] diagnosis of COVID-19 is performed using the Reachpod - Inovaktif Bilisim m SARS-CoV-2 Assay as authorized by the FDA Emergency Use Authorization (EUA). This EUA assay is intended for In-vitro Diagnostic (IVD) use with respiratory specimens such as nasopharyngeal swabs collected from individuals during the acute phase of infection. This assay is performed based on the instructions for use provided by [employer] and additional guidance provided by CDC and FDA. Testing is performed in the Clinical Genomics and Advanced Technology Laboratory within the Department of Pathology and Laboratory Medicine at [facility], certified under the Clinical Laboratory Improvement [...] fact sheets at the following FDA website: https://www.fda.gov/medical-devices/hvvcsuuiifm-uiorhcb-8385-msmvu-63-ztcxxutjk- dsu-qehogegmqqksmk-jszbfmo-devices/ijppi-vqypachhbkl-qukj SARS-Cov-2 RNA Source AGILE JAVA DEVELOPER Swab Diagnostic Studies: Results for orders placed [...] who have questions please contact the health home visit field care manager that requested your imaging first. Electronically signed by: YANET GANN [facility] ([phone]), at 10/31/2021 10:[address] Head wo [...] who have questions please contact the health home visit field care manager that requested your imaging first. Electronically signed by: Janie Aguilar MD, [facility] ([phone]), at 11/02/2021 12:47 AM XR Chest PA [...] who have questions please contact the health home visit field care manager that requested your imaging first. Electronically signed by: Tahira Medrano MD, [facility] ([phone]), at 11/02/2021 11:12 AM Inpatient Medications: Scheduled [...] changes occur or new questions arise, page [phone]. Case discussed with Dr. Adal Trinidad. Associated [...] Oxygen weaned off, with intermittent requirement in slip presser which likely relates to sleep apnea. Hemodynamics [...] has made the decision easier. Kimberly Lee STOCK PARTS INSPECTOR,[facility] [id number] * Kanu Roberts RN - [...] is home, and has home PT and mobile home laborer services. Bathroom Set-up: tub shower with seat [...] Billing Code: functional mobility ANDRES NINO PT Pager:[phone] Physical Therapy Inpatient Rehabilitation Department * Kimberly [...] John King and her Casemanager Jodie at [facility] out of [place].Her team has been callingto check in on her while she has been Hospitalized.Patient reports she is on MH medications and hasnot had any side effects from the medications that she can not tolerate at this time.Patient ststesher has MH struggles also and [facility] will be checking on him while she is I rehab for a couple of weeks. Kimberly DIOR,[facility] X4991 * Amelie Howell, FRANCISCO - [...] ?? Safety awareness: impulsive ?? Vision:corrective lenses transportation director ?? minimal vision R eye ?? Strength and ROM: ?? Pt strength and ROM in RUE improved 4/5 strength with report of improvement in sensation ?? Endurance:fair ?? Vitals: pt reported feeling lightheaded following sup>sit, BP taken: 109/68. ?? Pt oxygen found not to be turned on, this business writer placed pt on 2 L. VSS [...] Occupational Therapy Rehabilitation Department Amelie NEGRO Pager #[phone] Patient status, treatment interventions, and goals discussed [...] Procedure Component Value Units Date/Time COVID-19 PCR [[id number]] Collected: 11/02/21 1615 Lab Status: Final result [...] using the Simplexa COVID-19 Direct Assay by [employer] as authorized by the FDA issued Emergency [...] Department of Pathology and Laboratory Medicine at [facility], certified under the Clinical Laboratory Improvement [...] fact sheets at the following FDA website: https://www.fda.gov/medical-devices/jpxltyhlyob-rsbxtlc-5915-hrzxr-99-fgtaguafg- lel-kebsoizljsyctm-shnamrl-devices/fnlku-xdkfflmghxt-awpv SARS-CoV-2 Source AGILE JAVA DEVELOPER Swab COVID-19 PCR [[id number]] Collected: 10/27/21 1132 Lab Status: Final result [...] diagnosis of COVID-19 is performed using the [employer]niKampyle m SARS-CoV-2 Assay as authorized by the FDA Emergency Use Authorization (EUA). This EUA assay is intended for In-vitro Diagnostic (IVD) use with respiratory specimens such as nasopharyngeal swabs collected from individuals during the acute phase of infection. This assay is performed based on the instructions for use provided by [employer] and additional guidance provided by CDC and FDA. Testing is performed in the Clinical Dodonation and Advanced Technology Laboratory within the Department of Pathology and Laboratory Medicine at [facility], certified under the Clinical Laboratory Improvement [...] fact sheets at the following FDA website: https://www.fda.gov/medical-devices/cfakfcqobcw-cwsmnyd-0714-wshwr-68-tgbmstdxj- djm-ufkktxwmgdsvkq-ykxghpi-devices/yabgk-upkvrwllotm-lnbk SARS-Cov-2 RNA Source AGILE JAVA DEVELOPER Swab Diagnostic Studies: Results for orders placed [...] who have questions please contact the health home visit field care manager that requested your imaging first. Electronically signed by: YANET GANN [facility] ([phone]), at 10/31/2021 10:[address] Head wo [...] who have questions please contact the health home visit field care manager that requested your imaging first. Electronically signed by: Janie Aguilar MD, [facility] ([phone]), at 11/02/2021 12:47 AM XR Chest PA [...] who have questions please contact the health home visit field care manager that requested your imaging first. Electronically signed by: Tahira Medrano MD, [facility] ([phone]), at 11/02/2021 11:12 AM Inpatient Medications: Scheduled [...] is home, and has home PT and mobile home laborer services. Bathroom Set-up: tub shower with seat [...] Billing Code: functional mobility ANDRES NINO, PT Pager:[phone] Physical Therapy Inpatient Rehabilitation Department * Parvin Barksdale RN - 11/02/2021 10:28 AM EDT Based on discussions with the multi-disciplinary healthcare team, the patient would benefit from acute/swing level of care at discharge. ?? I have met with the Patient to discuss discharge planning needs. I have provided the [facility], Office of Care Management letter from the Sheeter Operator pertaining to rehab referrals. I have also provided a letter describing our affiliations within the [facility] and educatedthem about their right to choose where referrals are. ?? Provided patient with [facility] Star Quality Rating for SNF, LTAC [...] requested referrals to: 1. [facility] [address] [place] [address] ?? 2. [facility] Acute Rehabilitation and Sub-Acute (Swing) Rehab Levels of Care [address] [place] [address] ?? 3. [facility] (Swing) ([facility]) [address] [facility] [place] [address] ?? PHONE: [phone] FAX: [phone] ?? Expected date of discharge: 11/03/21 Has patient received the COVID vaccine: Yes Booster: Yes Does patient have COVID vaccine card: Yes Copy of Card Obtained: No Note routed to Casting Inspector who will communicate referrals to facilities and provide any required information. Parvin Barksdale MSN-Ed, RN ACM rehabilitation liaison Office of Care Management Pager #[phone] * Earlene Lee RN - 11/02/2021 12:14 AM EDT Patient desated to 70s on 3l NC o2, on 4L o2 NC, sat is 94%. Provider aware. Patient had a ct head and neck as her RLE was 2/5 strength at bedtime, and family was concerned about patient's shorter responses and confusion, though was AOx4 for this business writer's check of orientationat bedtime. Provider aware. [...] 17.4) performed by Campos Schumacher MD at [facility] MAIN OR PRO DUDLEY W/O FACETEC FORAMOT/DSKC 1/ VRT SEG, CERVICAL N/A 10/30/2021 LAMINECTOMY, CX W/EXPLOR , W/O FACETECTOMY, 1 OR 2 SEGMENTS (WRVU 17.61) performed by Campos Schumacher MD at [facility] MAIN OR PRO POSTERIOR SEGMENTAL INSTRUMENTATION 3-6 VRT SEG N/A 10/30/2021 POST SPINAL INSTRUMENTATION, 3-6 VERTEBRA, NON SEGMENTAL (WRVU 12.56) performed by Campos Schumacher MD at [facility] MAIN OR PRO UPPER GI ENDOSCOPY, BIOPSY N/A 12/03/2015 EGD WITH BIOPSY performed by Ken Sanders MD at [facility] ENDOSCOPY PRO UPPER GI ENDOSCOPY, BIOPSY N/A 09/19/2018 UPPER GASTROINTESTINAL ENDOSCOPY,WITH BIOPSY SINGLE OR MULTIPLE (WRVU 2.49) performed by Tyron Mercado MD at [facility] ENDOSCOPY TONSILLECTOMY UPPER GI ENDOSCOPY, EXAM 12/04/2010 UPPER GI ENDOSCOPY performed by DEE WRIGHT at [facility] ENDOSCOPY Social History: Home set-up: Pt lives with he in an apt with 3 cats. is home, and has home PT and mobile home laborer services. Bathroom Set-up: tub shower with seat [...] 54 Billing Code: miles NINO, PT Pager: [phone] Physical Therapy Inpatient Rehabilitation Department * Pham [...] 17.4) performed by Campos Schumacher MD at [facility] MAIN OR ??? PRO DUDLEY W/O FACETEC FORAMOT/DSKC 1/ VRT SEG, CERVICAL N/A 10/30/2021 LAMINECTOMY, CX W/EXPLOR , W/O FACETECTOMY, 1 OR 2 SEGMENTS (WRVU 17.61) performed by Campos Schumacher MD at [facility] MAIN OR ??? PRO POSTERIOR SEGMENTAL INSTRUMENTATION 3-6 VRT SEG N/A 10/30/2021 POST SPINAL INSTRUMENTATION, 3-6 VERTEBRA, NON SEGMENTAL (WRVU 12.56) performed by Campos Schumacher MD at [facility] MAIN OR ??? PRO UPPER GI ENDOSCOPY, [...] at [facility] ENDOSCOPY Social History: Patient lives with her [...] deficits Vision & Perception: ?? corrective lenses transportation director ?? minimal vision R eye Communication: WFL [...] and measurable assessment of functional outcome. Pager: [phone] Pham Shannon OT 11/01/2021 Occupational Therapy Rehabilitation [...] eval as able. Kenna Diane, PT Pager: [id number] Physical Therapy Inpatient Rehabilitation Department * Moe [...] for tomorrow to see as appropriate. Pager: [phone] MOE CANTRELL OT 10/31/2021 Occupational Therapy Rehabilitation [...] at [facility] ENDOSCOPY Medications: No current facility-administered medications on [...] 30 tablet 1 ??? Miscellaneous Medical [facility] 30 gauge Misc 1 each by [facility] [...] - 10/30/2021 12:50 PM EDT NEURODIAGNOSTIC LABORATORY [facility] INTRAOPERATIVE MONITORING REPORT Name: Jeannie Rico : [...] and abductor hallucis brevis recordings. CPT Codes: 39765 (EEG); 61470 (EMG 2 limbs); 17713 (EMG limited x2) 68155 (TOF, 4 nerves); 62734 (upper & lower MEP); 19028 (upper and lower SSEP bilateral); 46973 (IOM, 7 units); 84739 (IOM, 2 units). Intraoperative Neurophysiologic Monitoring was [...] & Follow-up Care: Contact information for follow-up [facility] [address] [address] Transportation: Wheelchair van/Ambulance? Yes Ambulance transportation is [...] MEDICAID [place] Prescription Coverage: Yes Preferred Pharmacy: [facility] [place] - [place] - [address] [facility] [address] [facility] [place] [facility] [address] [facility] - [place], [place] [facility] [address] [facility] [address] [place] [address] [facility] [address] This plan was formulated with input from patient, pt and family (please identify family/friend involved if applicable) and team. All are in agreement with plan. Parvin BATEMAN, RN Pager #[phone] * Plan of Care - Sarah Hanson [...] 30 gauge Misc 1 each by [facility] [...] 17.4) performed by Campos Schumacher MD at [facility] MAIN OR ??? PRO DUDLEY W/O FACETEC FORAMOT/DSKC 07/26 VRT SEG, CERVICAL N/A 10/30/2021 LAMINECTOMY, CX W/EXPLOR , W/O FACETECTOMY, 1 OR 2 SEGMENTS (WRVU 17.61) performed by Campos Schumacher MD at [facility] MAIN OR ??? PRO POSTERIOR SEGMENTAL INSTRUMENTATION 3-6 VRT SEG N/A 10/30/2021 POST SPINAL INSTRUMENTATION, 3-6 VERTEBRA, NON SEGMENTAL (WRVU 12.56) performed by Campos Schumacher MD at [facility] MAIN OR ??? PRO UPPER GI ENDOSCOPY, [...] at [facility] ENDOSCOPY Family History: Mother: from lung cancer at age 64; COPD, smoker, congestive heart failure Father: HTN, DM, Kidney Cancer, Skin Cancer; from [place] at 76 Maternal Grandmother - at age 35 y/o due to ovarian Social History: Tobacco: not a current smoker; prior 3 packs a day smoker - quit 3 months prior Etoh: none Illicits: uses medical marijuana Living Situation: Lives in [place], [place] Occupation: On disability due to mental [...] who have questions please contact the health home visit field care manager that requested your imaging first. Electronically signed by: YANET GANN [facility] ([phone]), at 10/31/2021 10:[address] Head wo [...] who have questions please contact the health home visit field care manager that requested your imaging first. Electronically signed by: Janie Aguilar MD, [facility] ([phone]), at 11/02/2021 12:47 AM XR Chest PA [...] who have questions please contact the health home visit field care manager that requested your imaging first. Electronically signed by: Tahira Medrano MD, [facility] ([phone]), at 11/02/2021 11:12 AM Assessment: Ms. Jeannie [...] MD Internal Medicine, PGY3 DINORA Pager # [phone] Associated attestation - Adal Trinidad MD - [...] TBD pending rehab evals and hospital course. STOCK PARTS INSPECTOR support for PMH PTSD, bipolar DO and anxiety. Care Management will continue to follow and assist with discharge planning and coordination of care as indicated. Anticipated Date of Discharge: 11/04/2021 Parvin BATEMAN, RN Pager #[phone] * Initial Assessments - Parvin Barksdale RN - 10/31/2021 1:55 PM EDT Office of Care Management Initial Assessment Medical record reviewed. Plan of care and patient status discussed with direct care Registered Nurse and/or Care Team in multidisciplinary rounds. Reason for Hospitalization: spinal surgery Last COVID test: Lab Results Component Value Date COVID19 Not Detected 10/27/2021 [id number] Not Detected 07/03/2020 Present on Admission: ??? Arthrodesis present Hospitalizations Within the Past 30 Days: no previous admission in last 30 days Patient receiving hospital care under IPI- SDP Admission (IP) status. Admission order reviewed. Primary Insurance on file: MEDICARE Secondary Insurance on file:@ Primary care provider on file: Hoang Castellanos, CIGARETTE MACHINES MECHANIC [phone] Pharmacy: [facility] [place] - [place] - [address] [facility] [address] [place] [address] [facility] - [place], [place] - [address] [facility] [address] Advance Care Planning: Attempt Cardiopulmonary Resuscitation - Inpatient Received -Advanced Directive: Yes, on file Who is your DPOA-HC?: Sibling Current Functional Ability: Completely Dependent Functional Status Prior to Admission: unable to assess Home Environment: Others in the home: spouse. Current Living Arrangements: home/apartment/condo. Accessibility Concerns: . Current DME: unable to assess [address] [place] [address] Social & Family Supports: All names listed below confirmed with patient as current and correct Extended Emergency Contact Information Primary Emergency Contact: MittalKyra dubose Address: [address] [place] Relation: Sibling Secondary Emergency Contact: jodie espinoza Mobile Relation: [facility] Current Care Provided by: unable to assess [...] TBD pending hospital course and rehab evals. STOCK PARTS INSPECTOR consult requested for emotional support r/t PMH PTSD, bipolar DO and anxiety. Registered Nurse Box Lining Machine Feeder / Sales Agent [employer] will continue to follow patient???s progress and remain available if situation changes for coordination of care, psychosocial support and/or discharge planning. Office of Care Management Parvin Barksdale MSN, RN Pager #[phone] * Plan of Care - Irasema Calix [...] Operative Note Patient Name: Jeannie Rico : [id number] MR#: [id number] Case Date: 10/30/2021 Surgeon: Surgeon(s) and Role: [...] Lu MD - 10/30/2021 10:[address] [facility] [place] Patient Name: Jeannie Rico : [id number] MR#: [id number] Case Date: 10/30/2021 Surgeon: Surgeon(s) and Role: [...] C6, which was again confirmed by fluoroscopy. Pump Erector Helper holes for our screws were then fashioned bilaterally along the lateral masses of C5 and C6 using a modified Magerl technique with insertion point slightly inferior and medial to the midpoint ofthe lateral masses first using the [place] Cirilo C1 drill bit for the cortical rim, followed by hand drill, tap, and confirmation with ball tip feeler. The right C6 entry point required redirection to avoid entering the facet space. Once we were satisfied with the airline transport pilot holes bone wax was placed in [...] healing. Attention was then given to closure. [place] irrigation was then performed and meticulous hemostasis [...] then flipped onto the recovery bed, Garsia miller head assistant wet process removed, and extubated without incident. At the [...] 11/02/2021 7:51 PM EDT RAPID COVID-19 PCR ([facility]) Routine 11/02/2021 4:15 PM EDT POCT GLUCOSE [...] W/O Facetec Foramot/Dskc 07/26 Vrt Seg, Cervical (18767) 10/30/2021 8:44 AM EDT C 5/6 and 6/7 ACDF MODIFIER,POSTERIOR CERVICAL INFINITY MEDTRONIC 10/30/2021 8:44 AM EDT C 5/6 and 6/7 ACDF Posterior Segmental Instrumentation 3-6 Vrt Seg ([id number]) 10/30/2021 8:44 AM EDT C 5/6 and 6/7 ACDF Arthrodesis, Post/Posterolat Tq, Sngle Interspace; Cervical Below C2 Segmnt ([id number]) 10/30/2021 8:44 AM EDT C 5/6 and 6/7 ACDF POCT GLUCOSE Routine 10/30/2021 8:11 AM EDT documented in this encounter Results * POCT Glucose (11/04/2021 11:50 AM EDT) Glucose, POC 97 65 - 199 mg/dL [facility] Comment: Supplemental ranges: <140 mg/dL before meals <180 mg/dL all other times of the day Blood 11/04/2021 11:5 0 AM EDT 11/04/2021 11:50 AM EDT Campos Schumacher MD POINT OF CARE TEST O ALYSON [facility] [place] [address] * POCT Glucose (11/04/2021 7:41 AM EDT) Glucose, POC 133 65 - 199 mg/dL [facility] Comment: Supplemental ranges: <140 mg/dL before meals <180 mg/dL all other times of the day Blood 11/04/2021 7:41 AM EDT 11/04/2021 7:41 AM EDT Campos Schumacher MD POINT OF CARE TEST O ALYSON Performing Organization Address [facility]/ZIP Co de Phone Number [facility] [place] [address] * POCT Glucose (11/04/2021 3:56 AM EDT) Glucose, POC 85 65 - 199 mg/dL [facility] Comment: Supplemental ranges: <140 mg/dL before meals <180 mg/dL all other times of the day Blood 11/04/2021 3:56 AM EDT 11/04/2021 3:56 AM EDT Campos Shcumacher MD POINT OF CARE TEST O ALYSON Performing Organization Address City/[facility]/ZIP Co de Phone Number [facility] [place] [address] * POCT Glucose (11/03/2021 11:46 PM EDT) Glucose, POC 98 65 - 199 mg/dL [facility] Comment: Supplemental ranges: <140 mg/dL before meals <180 mg/dL all other times of the day Blood 11/03/2021 11:4 6 PM EDT 11/03/2021 11:46 PM EDT Campos Schumacher MD POINT OF CARE TEST O ALYSON [facility] [place] [address] * POCT Glucose (11/03/2021 7:56 PM EDT) Glucose, POC 95 65 - 199 mg/dL [facility] Comment: Supplemental ranges: <140 mg/dL before meals <180 mg/dL all other times of the day Blood 11/03/2021 7:56 PM EDT 11/03/2021 7:56 PM EDT Campos Schumacher MD POINT OF CARE TEST O ALYSON Performing Organization Address City/[facility]/ZIP Co de Phone Number [facility] [place] [address] * (ABNORMAL) POCT Glucose (11/03/2021 3:15 PM EDT) Glucose, POC 216(H) 65 - 199 mg/dL [facility] Comment: Supplemental ranges: <140 mg/dL before meals <180 mg/dL all other times of the day Blood 11/03/2021 3:15 PM EDT 11/03/2021 3:15 PM EDT Campos Schumacher MD POINT OF CARE TEST O JEREMYERAKE [facility] [place] [address] * (ABNORMAL) POCT Glucose (11/03/2021 12:03 PM EDT) Glucose, POC 307(H) 65 - 199 mg/dL [facility] Comment: Supplemental ranges: <140 mg/dL before meals <180 mg/dL all other times of the day Blood 11/03/2021 12:0 3 PM EDT 11/03/2021 12:03 PM EDT Campos Schumacher MD POINT OF CARE TEST O ALYSON Performing Organization Address [facility] Co de Phone Number [facility] [place] [address] * POCT Glucose (11/03/2021 7:44 AM EDT) Glucose, POC 110 65 - 199 mg/dL [facility] Comment: Supplemental ranges: <140 mg/dL before meals <180 mg/dL all other times of the day Blood 11/03/2021 7:44 AM EDT 11/03/2021 7:44 AM EDT Campos Schumacher MD POINT OF CARE TEST O ALYSON Performing Organization Address [facility] Co de Phone Number [facility] [place] [address] * POCT Glucose (11/03/2021 4:13 AM EDT) Glucose, POC 103 65 - 199 mg/dL [facility] Comment: Supplemental ranges: <140 mg/dL before meals <180 mg/dL all other times of the day Blood 11/03/2021 4:13 AM EDT 11/03/2021 4:13 AM EDT Campos Schumacher MD POINT OF CARE TEST O ALYSON Performing Organization Address [facility] Co de Phone Number [facility] [place] [address] * POCT Glucose (11/03/2021 12:03 AM EDT) Glucose, POC 100 65 - 199 mg/dL [facility] Comment: Supplemental ranges: <140 mg/dL before meals <180 mg/dL all other times of the day Blood 11/03/2021 12:0 3 AM EDT 11/03/2021 12:03 AM EDT Campos Schumacher MD POINT OF CARE TEST O RDERABLES Performing Organization Address City/[facility]/ZIP Co de Phone Number [facility] [place] [address] * POCT Glucose (11/02/2021 7:51 PM EDT) Pathologist [facility] Glucose, POC 116 65 - 199 mg/dL [facility] Comment: Supplemental ranges: <140 mg/dL before meals <180 mg/dL all other times of the day Blood 11/02/2021 7:51 PM EDT 11/02/2021 7:51 PM EDT Campos Schumacher MD POINT OF CARE TEST O ALYSON Performing Organization Address [facility] Co de Phone Number [facility] [place] [address] * COVID-19 PCR (11/02/2021 4:15 PM EDT) [facility] SARS-CoV-2 RNA (Rapid) Not Detected Not Detected [facility] Comment: This result should [...] using the Simplexa COVID-19 Direct Assay by [employer] as authorized by the FDA issued Emergency [...] Department of Pathology and Laboratory Medicine at [facility], certified under the Clinical Laboratory Improvement [...] fact sheets at the following FDA website: https://www.fda.gov/medical-devices/famdgkfhkwz-ilbcskv-1185-zjxnu-04-kpoytuhtu- use-a zewhsyvksbqat-zfjywbt-grnmdqj/zmbvr-kgojcmtjusd-hdxz SARS-CoV-2 Source AGILE JAVA DEVELOPER Swab [facility] Nasopharyngeal Swab 11/03/19 4:15 PM EDT 11/02/2021 5:10 PM EDT Comment:Symptoms->Surveillan ce Narrative Resulting Agency Comment Spec In Lab Campos Schumacher MD MICROBIOLOGY - GENER AL ORDERABLES [facility] [place] [address] * POCT Glucose (11/02/2021 3:35 PM EDT) Glucose, POC 100 65 - 199 mg/dL [facility] Comment: Supplemental ranges: <140 mg/dL before meals <180 mg/dL all other times of the day Blood 11/02/2021 3:35 PM EDT 11/02/2021 3:35 PM EDT Campos Schumacher MD POINT OF CARE TEST O ALYSON Performing Organization Address City/[facility]/ZIP Co de Phone Number [facility] [place] [address] * POCT Glucose (11/02/2021 11:57 AM EDT) Glucose, POC 77 65 - 199 mg/dL [facility] Comment: Supplemental ranges: <140 mg/dL before meals <180 mg/dL all other times of the day Blood 11/02/2021 11:5 7 AM EDT 11/02/2021 11:57 AM EDT Campos Schumacher MD POINT OF CARE TEST O ALYSON Performing Organization Address [facility]/ZIP Co de Phone Number [facility] [place] [address] * XR Chest PA & Lateral (Generic) [...] who have questions please contact the health home visit field care manager that requested your imaging first. ? Electronically signed by: Tahira Medrano MD, [facility] ([phone]), at 11/02/2021 11:12 AM Narrative 11/02/2021 11:12 [...] patients who have questions please contactthe health home visit field care manager that requested your imaging first. Electronically signed by: Tahira Medrano MD, [facility]([phone]), at 11/02/2021 11:12 AM Campos Schumacher MD IMG DX ORDERABLES * POCT Glucose (11/02/2021 7:20 AM EDT) Glucose, POC 97 65 - 199 mg/dL [facility] Comment: Supplemental ranges: <140 mg/dL before meals <180 mg/dL all other times of the day Blood 11/02/2021 7:20 AM EDT 11/02/2021 7:20 AM EDT Campos Schumacher MD POINT OF CARE TEST O RDERABLES Performing Organization Address City/[facility]/ZIP Co de Phone Number [facility] [place] [address] * Duplex Study for DVT, Bilat legs (11/02/2021 7:15 AM EDT) VB Text Report Department: Vascular Surgery Lab Patient: [id number] (JEANNIE RICO) CPT: 36701 Referring Physician: CAMPOS SCHUMACHER ?? Indications: New [...] Schumacher MD VASCULAR ORDERABLES Performing Organization Address [facility]/ZIP Co de Phone Number [facility] * POCT Glucose (11/02/2021 4:02 AM EDT) Glucose, POC 90 65 - 199 mg/dL [facility] Comment: Supplemental ranges: <140 mg/dL before meals <180 mg/dL all other times of the day Blood 11/02/2021 4:02 AM EDT 11/02/2021 4:02 AM EDT Campos Schumacher MD POINT OF CARE TEST O ALYSON Performing Organization Address [facility] Co de Phone Number [facility] [place] [address] * POCT Glucose (11/01/2021 11:59 PM EDT) Glucose, POC 97 65 - 199 mg/dL [facility] Comment: Supplemental ranges: <140 mg/dL before meals <180 mg/dL all other times of the day Blood 11/01/2021 11:5 9 PM EDT 11/01/2021 11:59 PM EDT Campos Schumacher MD POINT OF CARE TEST O ALYSON Performing Organization Address [facility] Co de Phone Number [facility] [place] [address] * CT Head wo & Multiphase CTA [...] who have questions please contact the health home visit field care manager that requested your imaging first. ? Electronically signed by: Janie Aguilar MD, [facility] ([phone]), at 11/02/2021 12:47 AM Narrative 11/02/2021 12:47 AM EDT EXAMINATION: CT HEAD WO & MULTIPHASE CTA HEAD/NECK (THROMBECTOMY PROTOCOL) CLINICAL HISTORY: cva sx. neuro feficiets TECHNIQUE: CT of head without intravenous contrast. Multiphase CTA of the carotids and chicken ranch of [place] is performed after the administration [...] dissection. Bilateral vertebral arteries, basilar artery, bilateral marine structural welder, and bilateral posterior communicating arteries are patent [...] intravenous contrast. Multiphase CTA of the carotidsand chicken ranch of [place] is performed after the administration [...] dissection. Bilateral vertebral arteries, basilar artery, bilateral marine structural welder, andbilateral posterior communicating arteries are patent without evidence ofhemodynamically significant stenosis, aneurysm or dissection. Diminutive right [id number]. No perfusion asymmetry on the delayed phase [...] patients who have questions please contactthe health home visit field care manager that requested your imaging first. Electronically signed by: Janie Aguilar MD, [facility]([phone]), at 11/02/2021 12:47 AM Campos Schumacher MD IMG CT ORDERABLES * POCT Glucose (11/01/2021 7:50 PM EDT) Glucose, POC 91 65 - 199 mg/dL [facility] Comment: Supplemental ranges: <140 mg/dL before meals <180 mg/dL all other times of the day Blood 11/01/2021 7:50 PM EDT 11/01/2021 7:50 PM EDT Campos Schumacher MD POINT OF CARE TEST O RDERAKE Performing Organization Address City/[facility]/ZIP Co de Phone Number [facility] [place] [address] * POCT Glucose (11/01/2021 4:01 PM EDT) Glucose, POC 110 65 - 199 mg/dL [facility] Comment: Supplemental ranges: <140 mg/dL before meals <180 mg/dL all other times of the day Blood 11/01/2021 4:01 PM EDT 11/01/2021 4:01 PM EDT Campos Schumacher MD POINT OF CARE TEST O ALYSON [facility] [place] [address] * POCT Glucose (11/01/2021 11:56 AM EDT) Glucose, POC 119 65 - 199 mg/dL [facility] Comment: Supplemental ranges: <140 mg/dL before meals <180 mg/dL all other times of the day Blood 11/01/2021 11:5 6 AM EDT 11/01/2021 11:56 AM EDT Campos Schumacher MD POINT OF CARE TEST O ALYSON Performing Organization Address City/[facility]/ZIP Co de Phone Number [facility] [place] [address] * POCT Glucose (11/01/2021 7:52 AM EDT) Glucose, POC 108 65 - 199 mg/dL [facility] Comment: Supplemental ranges: <140 mg/dL before meals <180 mg/dL all other times of the day Blood 11/01/2021 7:52 AM EDT 11/01/2021 7:52 AM EDT Campos Schumacher MD POINT OF CARE TEST O ALYSON Performing Organization Address City/[facility]/ZIP Co de Phone Number [facility] [place] [address] * POCT Glucose (11/01/2021 3:09 AM EDT) Glucose, POC 117 65 - 199 mg/dL [facility] Comment: Supplemental ranges: <140 mg/dL before meals <180 mg/dL all other times of the day Blood 11/01/2021 3:09 AM EDT 11/01/2021 3:09 AM EDT Campos Schumacher MD POINT OF CARE TEST O ALYSON Performing Organization Address City/[facility] Co de Phone Number [facility] [place] [address] * POCT Glucose (11/01/2021 12:37 AM EDT) Glucose, POC 134 65 - 199 mg/dL [facility] Comment: Supplemental ranges: <140 mg/dL before meals <180 mg/dL all other times of the day Blood 11/01/2021 12:3 7 AM EDT 11/01/2021 12:37 AM EDT Campos Schumacher MD POINT OF CARE TEST O ALYSON Performing Organization Address City/[facility]/ZIP Co de Phone Number [facility] [place] [address] * POCT Glucose (10/31/2021 8:17 PM EDT) Glucose, POC 109 65 - 199 mg/dL [facility] Comment: Supplemental ranges: <140 mg/dL before meals <180 mg/dL all other times of the day Blood 10/31/2021 8:17 PM EDT 10/31/2021 8:17 PM EDT Campos Schumacher MD POINT OF CARE TEST O ALYSON Performing Organization Address [facility]/ZIP Co de Phone Number [facility] [place] [address] * POCT Glucose (10/31/2021 4:16 PM EDT) Glucose, POC 129 65 - 199 mg/dL [facility] Comment: Supplemental ranges: <140 mg/dL before meals <180 mg/dL all other times of the day Blood 10/31/2021 4:16 PM EDT 10/31/2021 4:16 PM EDT Campos Schumacher MD POINT OF CARE TEST O ALYSON Performing Organization Address City/[facility] Co de Phone Number [facility] [place] [address] * (ABNORMAL) pro-Brain Natriuretic Peptide (10/31/2021 12:21 PM EDT) NT-proBNP 428(H) <=124 pg/mL [facility] Blood Venous Draw / Unknown 10/31/2021 12:21 PM EDT 10/31/2021 12:57 PM EDT Narrative Resulting Agency Comment Spec In Lab Cheryl GR CHEMISTRY ORDERAB LES Performing Organization Address [facility] Co de Phone Number [facility] [place] [address] * Troponin (10/31/2021 12:21 PM EDT) Pathologist [facility] Troponin-T <0.01 0.00 - 0.00 ng/mL [facility] Comment: The 99th percentile for Troponin T is less than 0.01 ng/mL, any detectable cTnT concentration using this assay should be considered elevated. According to the third universal definition of myocardial infarction the following criteria with a clinical presentation consistent with acute myocardial ischemia meets the diagnosis for a myocardial infarction ([place]). Detection of a rise and/or fall of cTnT, with at least one value greater than the 99th percentile (> or = 0.01) and with at least one of the following ?? Symptoms of ischemia ?? New or presumed new significant LQ-saaorwj-E wave (ST-T) changes or new left bundle [...] additional sample may be indicated. Reference: Third [place] Definition of Myocardial Infarction. Journal of the [place] [employer] 2012;60:1581-98 Blood 10/31/2021 12:2 1 PM EDT 10/31/2021 12:32 PM EDT Narrative Resulting Agency Comment Spec In Lab Campos Schumacher MD CHEMISTRY ORDERABLES Performing Organization Address [facility]/ZIP Co de Phone Number [facility] [place] [address] * (ABNORMAL) Basic Metabolic Panel (non-fasting) (10/31/2021 12:21 PM EDT) Glucose 118 65 - 199 mg/dL [facility] Comment:Diabetes: >=200 mg/d L plus symptoms Blood Urea Nitrogen 12 8 - 18 mg/dL [facility] Creatinine 0.74 0.70 - 1.20 mg/dL [facility] Sodium 134(L) 135 - 145 mmol/L [facility] Potassium 4.7 3.5 - 5.0 mmol/L [facility] Comment: Please note: ??Patients with WBC >100,000 may have falsely elevated Potassium levels. ??For accurate Potassium quantification in these patients send serum separator tube (gold top) for subsequent determinations. ??Contact the Clinical Chemistry Laboratory if there are any questions. Chloride 98 98 - 107 mmol/L [facility] Carbon Dioxide 28 22 - 31 mmol/L [facility] Anion Gap 8 5 - 15 mmol/L [facility] Calcium 9.0 8.5 - 10.5 mg/dL [facility] Est Glomerular Filtration Rate 87 >=60 mL/min/1. 73 m?? [facility] Comment: This patient? s [...] In Lab Campos Schumacher MD CHEMISTRY ORDERABLES [facility] [place] [address] * Phosphorus (10/31/2021 12:21 PM EDT) Phosphorus 4.4 2.5 - 4.5 mg/dL [facility] Blood 10/31/2021 12:2 1 PM EDT 10/31/2021 12:27 PM EDT Narrative Resulting Agency Comment Spec In Lab Campos Schumacher MD CHEMISTRY ORDERABLES Performing Organization Address City/[facility]/ZIP Co de Phone Number [facility] [place] [address] * Magnesium (10/31/2021 12:21 PM EDT) Pathologist [facility] Magnesium 0.78 0.69 - 1.07 mmol/L [facility] Blood 10/31/2021 12:2 1 PM EDT 10/31/2021 12:27 PM EDT Narrative Resulting Agency Comment Spec In Lab Campos Schumacher MD CHEMISTRY ORDERABLES Performing Organization Address City/[facility]/ZIP Co de Phone Number [facility] [place] [address] * EKG 12 Lead (10/31/2021 12:08 PM EDT) Ventricular rate 59 BPM MUSE SYSTEM Atrial Rate 59 BPM MUSE SYSTEM P-R Interval 142 ms MUSE SYSTEM QRS Duration 82 ms MUSE SYSTEM Q-T Interval 408 ms MUSE SYSTEM QTC Calculated (Bezet) 403 ms MUSE SYSTEM Calculated P Walker 9 degrees MUSE SYSTEM Calculated R Walker 27 degrees MUSE SYSTEM Calculated T Walker 11 degrees MUSE SYSTEM INTERPRETATION Sinus bradycardia [...] Glucose, POC 118 65 - 199 mg/dL [facility] Comment: Supplemental ranges: <140 mg/dL before meals <180 mg/dL all other times of the day Blood 10/31/2021 11:5 3 AM EDT 10/31/2021 11:53 AM EDT Campos Schumacher MD POINT OF CARE TEST O RDERABLES Performing Organization Address City/[facility]/ZIP Co de Phone Number [facility] [place] [address] * (ABNORMAL) Differential, Automated (10/31/2021 8:14 AM EDT) Neutrophil % 85.7 % [facility] Neutrophil Absolute 9.06(H) 1.70 - 6.10 x10(3)/mc L [facility] Lymph % 6.3 % [facility] Lymphocytes Abs 0.7(L) 0.9 - 3.2 x10(3)/mc L [facility] Monocyte % 7.1 % [facility] Monocyte Abs 0.8 0.3 - 0.9 x10(3)/mc L [facility] Eos % 0.2 % [facility] Eosinophils Abs 0.0 0.0 - 0.4 x10(3)/mc L [facility] Basophil % 0.3 % [facility] Baso Absolute 0.0 0.0 - 0.1 x10(3)/mc L [facility] Immature Gran % 0.40 % [facility] Comment: Immature granulocytes(IG's)percentage and absolute count will include metamyelocytes, myelocytes, and promyelocytes. Blood smears from CBCs yielding IG's will be scanned manually for concordance. If this scan disagrees with the automated IG or if promyelocytes are noted, a manual differential will be performed. Immature Gran Absolute 0.04 0.00 - 0.04 x10(3)/ L [facility] Blood 10/31/2021 8:14 AM EDT 10/31/2021 8:47 AM EDT Narrative Resulting Agency Comment Spec In Lab Melania Gaxiola MD HEMATOLOGY ORDERAB LES [facility] [place] [address] * (ABNORMAL) Hemogram (10/31/2021 8:14 AM EDT) White Blood Cell 10.6(H) 4.0 - 9.5 x10(3)/[facility] Red Blood Cell 4.26 4.00 - 5.21 x10(6)/[facility] Hemoglobin 13.0 11.7 - 15.5 g/dL [facility] Hematocrit 40.9 35.7 - 45.8 % [facility] Mean Cell Volume 96.0(H) 82.6 - 94.4 fL [facility] Mean Cell Hemoglobin 30.5 27.1 - 32.0 pg [facility] Mean Cell Hemoglobin Concentration 31.8 31.7 - 35.0 g/dL [facility] Platelet 210 145 - 357 x10(3)/[facility] LABORATORY RDW Standard Deviation 47.4(H) 37.0 - 46.0 [facility] RDW coefficient of variation 13.2 11.5 - 14.1 % [facility] Mean Platelet Volume 9.8 7.6 - 12.9 [facility] NRBC% auto 0.0 % [facility] NRBC Absolute 0.000 0.000 - 0.000 x10(3)/ L [facility] Blood 10/31/2021 8:14 AM EDT 10/31/2021 8:47 AM EDT Narrative Resulting Agency Comment Spec In Lab Melania Gaxiola MD HEMATOLOGY ORDERAB LES [facility] [place] [address] * POCT Glucose (10/31/2021 7:50 AM EDT) Glucose, POC 111 65 - 199 mg/dL [facility] Comment: Supplemental ranges: <140 mg/dL before meals <180 mg/dL all other times of the day Blood 10/31/2021 7:50 AM EDT 10/31/2021 7:50 AM EDT Campos Schumacher MD POINT OF CARE TEST O RDERAKE Performing Organization Address [facility] Co de Phone Number [facility] [place] [address] * POCT Glucose (10/31/2021 5:36 AM EDT) Glucose, POC 116 65 - 199 mg/dL [facility] Comment: Supplemental ranges: <140 mg/dL before meals <180 mg/dL all other times of the day Blood 10/31/2021 5:36 AM EDT 10/31/2021 5:36 AM EDT Campos Schumacher MD POINT OF CARE TEST O RDLEOBARDO Performing Organization Address City/[facility]/ZIP Co de Phone Number [facility] [place] [address] * POCT Glucose (10/30/2021 11:28 PM EDT) Glucose, POC 119 65 - 199 mg/dL [facility] Comment: Supplemental ranges: <140 mg/dL before meals <180 mg/dL all other times of the day Blood 10/30/2021 11:2 8 PM EDT 10/30/2021 11:28 PM EDT Campos Schumacher MD POINT OF CARE TEST O ALYSON Performing Organization Address City/[facility]/ZIP Co de Phone Number [facility] [place] [address] * POCT Glucose (10/30/2021 7:50 PM EDT) Glucose, POC 142 65 - 199 mg/dL [facility] Comment: Supplemental ranges: <140 mg/dL before meals <180 mg/dL all other times of the day Blood 10/30/2021 7:50 PM EDT 10/30/2021 7:50 PM EDT Campos Schumacher MD POINT OF CARE TEST O ALYSON Performing Organization Address [facility] Co de Phone Number [facility] [place] [address] * XR Cervical Spine 2 or 3 [...] who have questions please contact the health home visit field care manager that requested your imaging first. ? Electronically signed by: YANET GANN [facility] ([phone]), at 10/31/2021 10:23 AM Narrative 10/31/2021 10:23 [...] patients who have questions please contactthe health home visit field care manager that requested your imaging first. Electronically signed by: YANET GANN [facility] ([phone]),at 10/31/2021 10:23 AM Campos Schumacher MD IMG DX ORDERABLES * POCT Glucose (10/30/2021 3:17 PM EDT) Glucose, POC 103 65 - 199 mg/dL [facility] Comment: Supplemental ranges: <140 mg/dL before meals <180 mg/dL all other times of the day Blood 10/30/2021 3:17 PM EDT 10/30/2021 3:17 PM EDT Campos Schumacher MD POINT OF CARE TEST O ALYSON Performing Organization Address [facility] de Phone Number [facility] [place] [address] * XR Fluoro No Rad <1Hr - OR Use (10/30/2021 1:30 PM EDT) Narrative Dicom, Auditing User - 10/30/2021 2:07 PM EDT This exam is auto-finalizing. No interpretation was done. Campos Schumacher MD IMG FLUORO ORDERABLE S * POCT Glucose (10/30/2021 8:11 AM EDT) Glucose, POC 110 65 - 199 mg/dL [facility] Comment: Supplemental ranges: <140 mg/dL before meals <180 mg/dL all other times of the day Blood 10/30/2021 8:11 AM EDT 10/30/2021 8:11 AM EDT Campos Schumacher MD POINT OF CARE TEST O ALYSON Performing Organization Address [facility] de Phone Number [facility] [place] [address] documented in this encounter Visit Diagnoses Not [...] Routine documented in this encounter Care Teams Assistant Spa Manager Relationship Specialty Start Date End Date Hoang Castellanos, CIGARETTE MACHINES MECHANIC [address] [place] [address] PCP - General Family Medicine 03/12/20 documented as of this encounter
--- OUTSIDE RECORDS SUMMARY | 2024-08-07 14:07 | XMS_ITS | Encounter Summary ---
Author Organization [place] [address] Care Team Providers Care Print Decorator Name Role Phone Hoang Castellanos APRN Primary Care Provider Reason for Visit * Reason Comments Medication Refill Encounter Details Date Type Department Care Team (Late st Contact Info) Description 10/26/2021 Refill Primary Care at [facility] [address] [place] [phone] Hoang Castellanos APRN [address] [facility] [place] [address] Social History Tobacco Use Types Packs/Day Years [...] encounter Miscellaneous Notes * [facility]26/[facility] 2:33 PM EDT Medication name: [...] on filedocumented in this encounter Care Teams Print Decorator Relationship Specialty Start Date End Date Hoang Castellanos, FENCE LABORER [address] [place] [address] PCP - General Family Medicine 03/12/20 documented as of this encounter
--- OUTSIDE RECORDS SUMMARY | 2024-08-07 14:07 | XMS_ITS | Encounter Summary ---
Author Organization [facility] Address [facility] [place] [address] Care Team Providers Care Mems Integration Engineer Name Role Phone Hoang Castellanos APRN Primary Care Provider Encounter Details Date Type Department Care Team (Late st Contact Info) Description 10/29/2021 Telephone [place] [address] Campos Puente MD [facility] [address] Social History Tobacco Use Types Packs/Day Years [...] on filedocumented in this encounter Care Teams Mems Integration Engineer Relationship Specialty Start Date End Date Hoang Castellanos, POLE FRAMER [address] [place] [address] PCP - General Family Medicine 03/12/20 documented as of this encounter
--- OUTSIDE RECORDS SUMMARY | 2024-08-07 14:07 | XMS_ITS | Encounter Summary ---
[place] [address] Care Team Providers Care Shuttle Veneering Supervisor Name Role Phone Hoang Castellanos APRN Primary Care Provider [phone] Reason for Visit * Reason Onset Date Comments Other 10/28/2021 Test results Encounter Details Date Type Department Care Team (Late st Contact Info) Description 10/28/2021 [place] [phone] Laurel Ordoñez RN Other (Test results) Social [...] on filedocumented in this encounter Care Teams Shuttle Veneering Supervisor Relationship Specialty Start Date End Date Hoang Castellanos, BUNDLE HELPER [address] [place] [address] PCP - General Family Medicine 03/12/20 documented as of this encounter
--- OUTSIDE RECORDS SUMMARY | 2024-08-07 14:07 | XMS_ITS | Encounter Summary ---
[place] [address] Care Team Providers Care Grain Oilseed Or Pasture Grower Name Role Phone Hoang Castellanos APRN [...] Expiration Date Visits Re quested Visits Authorized [id number] 1 1 Encounter Details Date Type Department Care Team (Latest Contact Info) Description 10/30/2021 6:57 AM EDT - 11/04/2021 4:02 PM EDT Hospital Encounter [address] [place] [id number] Campos Schumacher MD [facility] [place] [address] [place] [address] Cervical spinal stenosis; Bradycardia; Right leg weakness [...] the last few months. telephone consent by [facility] Course: Jeannie Rico presented 10/30/2021 for elective [...] who have questions please contact the health elderly caregiver that requested your imaging first. Head wo [...] who have questions please contact the health elderly caregiver that requested your imaging first. Chest PA & Lateral (Generic) (Exam End: 11/02/2021 9:39 AM) Impression Trace bibasilar pleural effusions and atelectasis by posterior costophrenic angles. Thank you for letting us participate in the care of this patient. If you are a health care provider and have any questions regarding this report, please contact the number below. For patients who have questions please contact the health elderly caregiver that requested your imaging first. Pending Studies and Lab Data: na Discharge Condition: Stable Discharge to: rehab Future Appointments and Orders Future Appointments and Orders Future Appointments Provider Department Dept Phone 12/03/2021 10:30 AM Campos Schumacher MD Neurosurgery at [facility] Arrive at: [place] [phone] 12/22/2021 9:45 AM Michael Espinoza MD Endocrinology at [facility] Arrive at: [place] 3A [phone] Future Orders Complete By Expires XR Cervical Spine 2 or 3 Views [[id number] Custom] 12/04/2021 (Approximate) 01/04/2022 Process Instructions: Scheduling Instructions: Questions: Where will study be performed?: [facility] Radiology Portable exam?: Reason for exam [...] 30 gauge Misc 1 each by [facility].(Non-Drug; [...] anticoagulant, and non-steroidal anti-inflammatory (NSAIDs) drugs. Common dkpa-vsa-kpzhbfk medications which should be avoided include Aspirin, [...] to pass. These medications can be obtained ngwr-yjt-kcbbrcp and their use is recommended on an [...] retention Constipation not relieved by diet and/or deym-ano-zwiaqgw stool softeners and laxatives Nausea/vomiting (upset stomach) [...] tobacco dependence clinics in these locations: ??? [facility] for Tobacco-Free Communities: [place] ??? [facility] Treatment [place], [place] Other Programs at [facility] in [place] ??? Living Free of Tobacco support group: For anyone who has quit tobacco or is considering quitting tobacco. [facility] Health Education Center, Level 4, [place] 3:30 to 4:30 p.m. on the tuesday of every month. Other Programs in the Area ??? [facility] in [place] One-on-one counseling, hypnosis. Cassidy Jamison ??? [facility] in [place], [place] One-on-one counseling, QuitLine, classes. Lay Ferris ??? [facility]: One-on-one counseling. All ages and incomes eligible. Sakshi Camacho [facility]: Classes & support group. Behzad Schwab ??? [facility] in [place], [place] One-on-one counseling, QuitLine, classes, hypnosis therapy. Ruth Corey Information about Quitting Smoking and Tobacco See our Quitting Smoking - Information and Materials page (http://www.[facility].org/medical- information/smoking/information_on_quitting_smoking.html) for educational information about quitting smoking, downloadable smoking cessation materials, podcasts, websites, helplines, and more. FOLLOW UP PLAN: Incision: [x] Your artie need to be removed on 11/13/2021. You can get them removed by coming into our office, PCP office, or at rehab. a Appointments: Please follow up in the Neurosurgery Clinic in 4-6 weeks. Please call the Neurosurgery Office at [phone] if you do not receive a scheduled appointment within two weeks. Your follow-up appointment will be with: [x] Dr. Schumacher Follow-up Imaging: [x] XR - Cervical HOW TO REACH NEUROSURGERY Office Hours: Tuesday through Tuesday, 8am-5pm. Call . On weekends or after office hours: Call [phone] and ask the conche operator to page the Neurosurgery Resident/Advanced Practice Provider operations examiner. IMPORTANT PHONE NUMBERS: Outpatient Nurse (Karen Belle) Inpatient Nurses Neurosurgical Resident/Advanced Practice Provider On-Call (after 5pm or before 8am) Neurosurgery offices (Tuesday through Tuesday between 8am-5pm): Adult Neurosurgery Dr. Remy Green Pediatric Neurosurgery Dr. Cassidy Funes Advanced Practice Providers Prudence Heaton, Nurse Practitioner (outpatient) Cheryl Patel, Physician Laborer [employer] (inpatient) Mabel Metcalf, Nurse Practitioner (inpatient) Brandi Chiu, Physician Laborer [employer] (inpatient) Brandi Benavides, Physician Laborer [employer] (inpatient) Karen Barksdale, Nurse Practitioner (outpatient: vascular) Amanda Mendez, Physician Laborer [employer] (outpatient: spine) David Herring, Nurse Practitioner (inpatient/outpatient) Freddy Dolan, Physician Laborer [employer] (outpatient) Margo Almodovar, Nurse Practitioner (outpatient: neuro-oncology) HOW TO REACH NEUROSURGERY Office Hours (Tuesday through Tuesday 8am-5pm): Call On weekends or after office hours (after 5pm or before 8am): Call [phone] and ask the conche operator to page the Neurosurgery Resident/Advanced Practice Provider operations examiner. *Your surgeon may not be scalloper (especially after office hours or on the weekend) so be ready totell about yourself and your surgery when you call. Neurosurgery Providers Adult Neurosurgery Dr. Remy Green Pediatric Neurosurgery Dr. Cassidy Funes Advanced Practice Providers Prudence Heaton, Nurse Practitioner (outpatient) Cheryl Patel, Physician Laborer [employer] (inpatient) Mabel Metcalf, Nurse Practitioner (inpatient) Brandi Chiu, Physician Laborer [employer] (inpatient) Dereck Salgado, Nurse Practitioner (outpatient: pediatric) Brandi Benavides, Physician Laborer [employer] (inpatient) Karen Barksdale, Nurse Practitioner (outpatient: vascular) Amanda Mendez, Physician Laborer [employer] (outpatient: spine) David Herring, Nurse Practitioner (inpatient/outpatient) Freddy Dolan, Physician Laborer [employer] (outpatient) Margo Almodovar, Nurse Practitioner (outpatient: neuro-oncology) [...] anticoagulant, and non-steroidal anti-inflammatory (NSAIDs) drugs. Common expc-juf-lzuuyos medications which should be avoided include Aspirin, [...] to pass. These medications can be obtained kvek-vmz-ywzbqbs and their use is recommended on an [...] retention Constipation not relieved by diet and/or qltf-jqj-mfmbmgo stool softeners and laxatives Nausea/vomiting (upset stomach) [...] have tobacco dependence clinics in these locations: [facility] for Tobacco-Free Communities: [place] [facility] Tobacco Treatment [facility], [place] Other Programs at [facility] in [place] Living Free of Tobacco support group: For anyone who has quit tobacco or is considering quitting tobacco. [facility] Health Education Center, Level 4, [place] 3:30 to 4:30 p.m. on the tuesday of every month. Other Programs in the Area [facility] in [place] One-on-one counseling, hypnosis. Cassidy Jamison [facility] in [place], [place] One-on-one counseling, QuitLine, classes. Lay Ferris [facility]: One-on-one counseling. All ages and incomes eligible. Sakshi Camacho [facility]: Classes & support group. Behzad Schwab [facility] in [place], [place] One-on-one counseling, QuitLine, classes, hypnosis therapy. Ruth Corey Information about Quitting Smoking and Tobacco See our Quitting Smoking - Information and Materials page (http://www.[facility].org/medical- information/smoking/information_on_quitting_smoking.html) for educational information about quitting smoking, downloadable smoking cessation materials, podcasts, websites, helplines, and more. FOLLOW UP PLAN: Incision: [x] Your ratie need to be removed on 11/13/2021. You can get them removed by coming into our office, PCP office, or at rehab. a Appointments: Please follow up in the Neurosurgery Clinic in 4-6 weeks. Please call the Neurosurgery Office at [phone] if you do not receive a scheduled appointment within two weeks. Your follow-up appointment will be with: [x] Dr. Schumacher Follow-up Imaging: [x] XR - Cervical HOW TO REACH NEUROSURGERY Office Hours: Tuesday through Tuesday, 8am-5pm. Call . On weekends or after office hours: Call [phone] and ask the conche operator to page the Neurosurgery Resident/Advanced Practice Provider operations examiner. IMPORTANT PHONE NUMBERS: Outpatient Nurse (Karen Belle) Inpatient Nurses Neurosurgical Resident/Advanced Practice Provider On-Call (after 5pm or before 8am) Neurosurgery offices (Tuesday through Tuesday between 8am-5pm): Adult Neurosurgery Dr. Remy Green Pediatric Neurosurgery Dr. Cassidy Funes Advanced Practice Providers Prudence Heaton, Nurse Practitioner (outpatient) Cheryl Patel, Physician Laborer [employer] (inpatient) Mabel Metcalf, Nurse Practitioner (inpatient) Brandi Chiu, Physician Laborer [employer] (inpatient) Brandi Benavides, Physician Laborer [employer] (inpatient) Karen Barksdale, Nurse Practitioner (outpatient: vascular) Amanda Mendez, Physician Laborer [employer] (outpatient: spine) David Herring, Nurse Practitioner (inpatient/outpatient) Freddy Dolan, Physician Laborer [employer] (outpatient) Margo Almodovar, Nurse Practitioner (outpatient: neuro-oncology) [...] Sustained Release 24 hrIndications:Coronary artery disease involving douglas coronary artery of douglas heart without angina pectoris TAKE ONE (1) TABLET BY MOUTH EVERY DAY 28 tablet 02/17/2021 01/18/2022 Ventolin HFA 90 mcg/actuation HFA Aerosol InhalerIndications:Sales Assoc randell obstructive pulmonary disease, unspecified COPD type [...] 4:02 PM EDT Jeannie Rico discharged to [facility] by ambulance. All belongings sent [...] General Information Jeannie Rico 1960 Medicare Number: [id number] Transport Date: 11/04/21 (PCS is valid for round trips on this date and for all repetitive trips in the 60-day range as noted below.) Origin: [facility] Destination: [facility], [place] Is the patient's stay covered under [...] wheelchair van (i.e. seated during transport, without biomedical field service engineer or monitoring?): No 4) In addition to [...] ambulance transport. Parvin Barksdale MSN-Ed, RN ACM dispute coordinator Office of Care Management Pager #[phone] * Kanu Roberts RN - 11/04/2021 11:23 [...] AM EDTSummary: Discharge Note Office of Care Management/Chicken Handler Patient Name: Jeannie Rico : 1960 Patient has been offered an acute rehab bed at [facility] for today, 11/04/21 [facility] arranged for a 1530 transport. Ambulance will need: Medicare ambulance form completed and signed (MD or Window Assembler RN/PELLETISING EXTRUDER OPERATOR) Copy of patient demographics [place] Out of Hospital DNR/DNI order, if active No MD to MD report necessary Please call Nursing Report to , ask for railroad car letterer. Info to accompany patient: Copies of Medication Administration Records and IV sheets for past 10 days. Plan: Chicken Handler will be available to the patient and Window Assembler-RN and/or Social Workerfor further assistance. Patient will be discharged to: [facility] Jeremy Pearson, Chicken Handler * Amelie Howell OTA - 11/04/2021 9:37 [...] ?? Safety awareness: impulsive ?? Vision:corrective lenses manager maritime ?? minimal vision R eye ?? Strength [...] Therapy Rehabilitation Department SRUTHI Tomas Pager # [phone] Patient status, treatment interventions, and goals discussed [...] Procedure Component Value Units Date/Time COVID-19 PCR [[id number]] Collected: 11/02/21 1615 Lab Status: Final result [...] using the Simplexa COVID-19 Direct Assay by Quippi as authorized by the FDA issued Emergency [...] Department of Pathology and Laboratory Medicine at [facility], certified under the Clinical Laboratory [...] fact sheets at the following FDA website: https://www.fda.gov/medical-devices/octrmnbeerl-hucipbz-0333-esaav-10-pgmwlnqwq- sts-yvzrssiyhqhxxs-bfnbbsf-devices/wvwgh-uphqznmqtcd-ugbe SARS-CoV-2 Source HAND PACKER/PACKAGER Swab COVID-19 PCR [[id number]] Collected: 10/27/21 1132 Lab Status: Final result [...] diagnosis of COVID-19 is performed using the SNSplus m SARS-CoV-2 Assay as authorized by the FDA Emergency Use Authorization (EUA). This EUA assay is intended for In-vitro Diagnostic (IVD) use with respiratory specimens such as nasopharyngeal swabs collected from individuals during the acute phase of infection. This assay is performed based on the instructions for use provided by [employer] and additional guidance provided by CDC and FDA. Testing is performed in the Clinical Genomics and Advanced Technology Laboratory within the Department of Pathology and Laboratory Medicine at [facility], certified under the Clinical Laboratory [...] fact sheets at the following FDA website: https://www.fda.gov/medical-devices/pajltyeccyw-bbjqbqd-0817-kfull-74-ebddvuxwf- cju-njfogaelvjqzye-hqqxvph-devices/mngsx-qchildumqmc-kktx SARS-Cov-2 RNA Source HAND PACKER/PACKAGER Swab Diagnostic Studies: Results for orders placed [...] who have questions please contact the health elderly caregiver that requested your imaging first. Head wo [...] who have questions please contact the health elderly caregiver that requested your imaging first. Chest PA & Lateral (Generic) (Exam End: 11/02/2021 9:39 AM) Impression Trace bibasilar pleural effusions and atelectasis by posterior costophrenic angles. Thank you for letting us participate in the care of this patient. If you are a health care provider and have any questions regarding this report, please contact the number below. For patients who have questions please contact the health elderly caregiver that requested your imaging first. Inpatient Medications: Scheduled Meds: ??? sodium chloride [...] changes occur or new questions arise, page [phone]. Case discussed with Dr. Adal Trinidad. Associated [...] Oxygen weaned off, with intermittent requirement in loss prevention manager which likely relates to sleep apnea. Hemodynamics [...] RNSARIKA.Patient reported she would go to the [facility] facility.She reported that the [facility] staff had told her they would be checking on her in the home while she was at Rehab which has made the decision easier. Kimberly Lee PELLETISING EXTRUDER OPERATOR,[facility] [id number] * Kanu Roberts RN - [...] home, and has home PT and home service consultant services. Bathroom Set-up: tub shower with [...] Billing Code: functional mobility ANDRES NINO PT Pager:[phone] Physical Therapy Inpatient Rehabilitation Department * Kimberly [...] John King and her Casemanager Jodie at [facility] out of [place].Her team has been callingto check in on her while she has been Hospitalized.Patient reports she is on MH medications and hasnot had any side effects from the medications that she can not tolerate at this time.Patient ststesher has MH struggles also and [facility] will be checking on him while she is I rehab for a couple of weeks. Kimberly DIOR,[facility] [id number] * Amelie Howell, ABSTRACT MAKER - 11/03/2021 9:47 AM EDT Occupational Therapy [...] ?? Safety awareness: impulsive ?? Vision:corrective lenses manager maritime ?? minimal vision R eye ?? Strength and ROM: ?? Pt strength and ROM in RUE improved 4/5 strength with report of improvement in sensation ?? Endurance:fair ?? Vitals: pt reported feeling lightheaded following sup>sit, BP taken: 109/68. ?? Pt oxygen found not to be turned on, this insurance underwriter placed pt on 2 L. VSS through [...] Occupational Therapy Rehabilitation Department Amelie NEGRO Pager #[phone] Patient status, treatment interventions, and goals discussed [...] Procedure Component Value Units Date/Time COVID-19 PCR [[id number]] Collected: 11/02/21 1615 Lab Status: Final result [...] using the Simplexa COVID-19 Direct Assay by Quippi as authorized by the FDA issued Emergency [...] Department of Pathology and Laboratory Medicine at [facility], certified under the Clinical Laboratory [...] fact sheets at the following FDA website: https://www.fda.gov/medical-devices/fwgshvkxtim-zmrkphr-7783-embsl-71-npdfqiwze- hnp-qgbppzweasdddm-qyyjmvh-devices/rqnez-fvokrqzsoaa-ybts SARS-CoV-2 Source HAND PACKER/PACKAGER Swab COVID-19 PCR [[id number]] Collected: 10/27/21 1132 Lab Status: Final result [...] diagnosis of COVID-19 is performed using the SNSplus m SARS-CoV-2 Assay as authorized by the FDA Emergency Use Authorization (EUA). This EUA assay is intended for In-vitro Diagnostic (IVD) use with respiratory specimens such as nasopharyngeal swabs collected from individuals during the acute phase of infection. This assay is performed based on the instructions for use provided by [employer] and additional guidance provided by CDC and FDA. Testing is performed in the Clinical Endgame and Advanced Technology Laboratory within the Department of Pathology and Laboratory Medicine at [facility], certified under the Clinical Laboratory [...] fact sheets at the following FDA website: https://www.fda.gov/medical-devices/wulgqzkjrjz-kdhhwgh-3087-zmcza-35-vezvetwdp- ihw-qtamxbjdqemejj-hsqdlul-devices/grlcv-pnrcmwpcuuk-ysss SARS-Cov-2 RNA Source HAND PACKER/PACKAGER Swab Diagnostic Studies: Results for orders placed [...] who have questions please contact the health elderly caregiver that requested your imaging first. Head wo [...] who have questions please contact the health elderly caregiver that requested your imaging first. Chest PA & Lateral (Generic) (Exam End: 11/02/2021 9:39 AM) Impression Trace bibasilar pleural effusions and atelectasis by posterior costophrenic angles. Thank you for letting us participate in the care of this patient. If you are a health care provider and have any questions regarding this report, please contact the number below. For patients who have questions please contact the health elderly caregiver that requested your imaging first. Inpatient Medications: Scheduled Meds: ??? furosemide 20 [...] home, and has home PT and home service consultant services. Bathroom Set-up: tub shower with [...] Billing Code: functional mobility ANDRES NINO, PT Pager:[phone] Physical Therapy Inpatient Rehabilitation Department * Parvin Barksdale RN - 11/02/2021 10:28 AM EDT Based on discussions with the multi-disciplinary healthcare team, the patient would benefit from acute/swing level of care at discharge. ?? I have met with the Patient to discuss discharge planning needs. I have provided the [facility], Office of Care Management letter from the Third Shift Lieutenant pertaining to rehab referrals. I have also provided a letter describing our affiliations within the [facility] and educatedthem about their right to choose where referrals are. ?? Provided patient with [facility] Star Quality Rating for SNF, LTAC and/or [...] requested referrals to: 1. [facility] [address] [place] [address] ?? 2. [facility] Acute Rehabilitation and Sub-Acute (Swing) Rehab Levels of Care [address] [place] [address] ?? 3. [facility] (Swing) ([facility]) [address] [place] [address] ?? PHONE: [phone] FAX: [phone] ?? Expected date of discharge: 11/03/21 Has patient received the COVID vaccine: Yes Booster: Yes Does patient have COVID vaccine card: Yes Copy of Card Obtained: No Note routed to Chicken Handler who will communicate referrals to facilities and provide any required information. Parvin Barksdale MSN-Ed, RN ACM dispute coordinator Office of Care Management Pager #[phone] * Earlene Lee RN - 11/02/2021 12:14 AM EDT Patient desated to 70s on 3l NC o2, on 4L o2 NC, sat is 94%. Provider aware. Patient had a ct head and neck as her RLE was 2/5 strength at bedtime, and family was concerned about patient's shorter responses and confusion, though was AOx4 for this insurance underwriter's check of orientationat bedtime. Provider aware. * [...] 17.4) performed by Campos Schumacher MD at [facility] MAIN OR PRO DUDLEY W/O FACETEC FORAMOT/DSKC 1/ VRT SEG, CERVICAL N/A 10/30/2021 LAMINECTOMY, CX W/EXPLOR , W/O FACETECTOMY, 1 OR 2 SEGMENTS (WRVU 17.61) performed by Campos Schumacher MD at [facility] MAIN OR PRO POSTERIOR SEGMENTAL INSTRUMENTATION 3-6 VRT SEG N/A 10/30/2021 POST SPINAL INSTRUMENTATION, 3-6 VERTEBRA, NON SEGMENTAL (WRVU 12.56) performed by Campos Schumacher MD at [facility] MAIN OR PRO UPPER GI ENDOSCOPY, BIOPSY N/A 12/03/2015 EGD WITH BIOPSY performed by Ken Sanders MD at [facility] ENDOSCOPY PRO UPPER GI ENDOSCOPY, BIOPSY N/A 09/19/2018 UPPER GASTROINTESTINAL ENDOSCOPY,WITH BIOPSY SINGLE OR MULTIPLE (WRVU 2.49) performed by Tyron Mercado MD at [facility] ENDOSCOPY TONSILLECTOMY UPPER GI ENDOSCOPY, EXAM 12/04/2010 UPPER GI ENDOSCOPY performed by DEE WRIGHT at [facility] ENDOSCOPY Social History: Home set-up: Pt lives with he in an apt with 3 cats. is home, and has home PT and home service consultant services. Bathroom Set-up: tub shower with [...] 54 Billing Code: miles NINO, PT Pager: [phone] Physical Therapy Inpatient Rehabilitation Department * Pham [...] 17.4) performed by Campos Schumacher MD at [facility] MAIN OR ??? PRO DUDLEY W/O FACETEC FORAMOT/DSKC 1/2 VRT SEG, CERVICAL N/A 10/30/2021 LAMINECTOMY, CX W/EXPLOR , W/O FACETECTOMY, 1 OR 2 SEGMENTS (WRVU 17.61) performed by Campos Schumacher MD at [facility] MAIN OR ??? PRO POSTERIOR SEGMENTAL INSTRUMENTATION 3-6 VRT SEG N/A 10/30/2021 POST SPINAL INSTRUMENTATION, 3-6 VERTEBRA, NON SEGMENTAL (WRVU 12.56) performed by Campos Schumacher MD at [facility] MAIN OR ??? PRO UPPER GI ENDOSCOPY, BIOPSY N/A 12/03/2015 EGD WITH BIOPSY performed by Ken Sanders MD at [facility] ENDOSCOPY ??? PRO UPPER GI ENDOSCOPY, BIOPSY N/A 09/19/2018 UPPER GASTROINTESTINAL ENDOSCOPY,WITH BIOPSY SINGLE OR MULTIPLE (WRVU 2.49) performed by Tyron Mercado MD at [facility] ENDOSCOPY ??? TONSILLECTOMY ??? UPPER GI ENDOSCOPY, EXAM 12/04/2010 UPPER GI ENDOSCOPY performed by DEE WRIGHT at [facility] ENDOSCOPY Social History: Patient lives with [...] deficits Vision & Perception: ?? corrective lenses manager maritime ?? minimal vision R eye Communication: WFL [...] and measurable assessment of functional outcome. Pager: [phone] Pham Shannon OT 11/01/2021 Occupational Therapy Rehabilitation [...] eval as able. Kenna Diane, PT Pager: [phone] Physical Therapy Inpatient Rehabilitation Department * Moe [...] for tomorrow to see as appropriate. Pager: [phone] MOE CANTERLL OT 10/31/2021 Occupational Therapy Rehabilitation Department * [...] by Ken Sanders MD at [facility] ENDOSCOPY ??? PRO UPPER GI ENDOSCOPY, BIOPSY N/A 09/19/2018 UPPER GASTROINTESTINAL ENDOSCOPY,WITH BIOPSY SINGLE OR MULTIPLE (WRVU 2.49) performed by Tyron Mercado MD at [facility] ENDOSCOPY ??? TONSILLECTOMY ??? UPPER GI ENDOSCOPY, EXAM 12/04/2010 UPPER GI ENDOSCOPY performed by DEE WRIGHT at [facility] Medications: No current facility-administered medications [...] 30 tablet 1 ??? Miscellaneous Medical Supply [facility] [...] 30 gauge Misc 1 each by [facility].(Non-Drug; [...] 10/30/2021 12:50 PM EDT NEURODIAGNOSTIC LABORATORY [facility] INTRAOPERATIVE MONITORING REPORT Name: Jeannie Rico : [...] and abductor hallucis brevis recordings. CPT Codes: 32491 (EEG); 39529 (EMG 2 limbs); 54414 (EMG limited x2) 07095 (TOF, 4 nerves); 28848 (upper & lower MEP); 47432 (upper and lower SSEP bilateral); 47426 (IOM, 7 units); 49809 (IOM, 2 units). Intraoperative Neurophysiologic Monitoring was [...] & Follow-up Care: Contact information for follow-up [facility] Admissions - [place] [address] [facility] [address] Transportation: Wheelchair van/Ambulance? Yes Ambulance transportation is [...] MEDICAID [place] Prescription Coverage: Yes Preferred Pharmacy: [facility] [place] - [place], [place] - [address] [facility] [address] [facility] [address] [facility] [place], [place] [facility] [address] [facility] [address] [facility] [address] This plan was formulated with input from patient, pt and family (please identify family/friend involved if applicable) and team. All are in agreement with plan. Parvin BATEMAN, RN Pager #[phone] * Plan of Care - Sarah Hanson [...] 30 gauge Misc 1 each by [facility].(Non-Drug; [...] 17.4) performed by Campos Schumacher MD at [facility] MA[facility] OR ??? PRO DUDLEY W/O FACETEC FORAMOT/DSKC 07/26 VRT SEG, CERVICAL N/A 10/30/2021 LAMINECTOMY, CX W/EXPLOR , W/O FACETECTOMY, 1 OR 2 SEGMENTS (WRVU 17.61) performed by Campos Schumacher MD at [facility] MAIN OR ??? PRO POSTERIOR SEGMENTAL INSTRUMENTATION 3-6 VRT SEG N/A 10/30/2021 POST SPINAL INSTRUMENTATION, 3-6 VERTEBRA, NON SEGMENTAL (WRVU 12.56) performed by Campos Schumacher MD at [facility] MAIN OR ??? PRO UPPER GI ENDOSCOPY, BIOPSY N/A 12/03/2015 EGD WITH BIOPSY performed by Ken Sanders MD at [facility] ??? PRO UPPER GI ENDOSCOPY, BIOPSY N/A 09/19/2018 UPPER GASTROINTESTINAL ENDOSCOPY,WITH BIOPSY SINGLE OR MULTIPLE (WRVU 2.49) performed by Tyron Mercado MD at [facility] ??? TONSILLECTOMY ??? UPPER GI ENDOSCOPY, EXAM 12/04/2010 UPPER GI ENDOSCOPY performed by DEE WRIGHT at [facility] Family History: Mother: from lung cancer at age 64; COPD, smoker, congestive heart failure Father: HTN, DM, Kidney Cancer, Skin Cancer; from [place] at 76 Maternal Grandmother - at age 35 y/o due to ovarian Social History: Tobacco: not a current smoker; prior 3 packs a day smoker - quit 3 months prior Etoh: none Illicits: uses medical marijuana Living Situation: Lives in [place], [place] Occupation: On disability due to mental [...] who have questions please contact the health elderly caregiver that requested your imaging first. Head wo [...] who have questions please contact the health elderly caregiver that requested your imaging first. Chest PA & Lateral (Generic) (Exam End: 11/02/2021 9:39 AM) Impression Trace bibasilar pleural effusions and atelectasis by posterior costophrenic angles. Thank you for letting us participate in the care of this patient. If you are a health care provider and have any questions regarding this report, please contact the number below. For patients who have questions please contact the health elderly caregiver that requested your imaging first. Assessment: Ms. Jeannie Rico is a 61 [...] MD Internal Medicine, PGY3 DINORA Pager # [phone] Associated attestation - Adal Trinidad MD - [...] TBD pending rehab evals and hospital course. 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 Care Management will continue to follow and assist with discharge planning and coordination of care as indicated. Anticipated Date of Discharge: 11/04/2021 Parvin BATEMAN, RN Pager #[phone] * Initial Assessments - Parvin Barksdale RN - 10/31/2021 1:55 PM EDT Office of Care Management Initial Assessment Medical record reviewed. Plan of care and patient status discussed with direct care Registered Nurse and/or Care Team in multidisciplinary rounds. Reason for Hospitalization: spinal surgery Last COVID test: Lab Results Component Value Date COVID19 Not Detected 10/27/2021 [id number] Not Detected 07/03/2020 Present on Admission: ??? Arthrodesis present Hospitalizations Within the Past 30 Days: no previous admission in last 30 days Patient receiving hospital care under IPI- SDP Admission (IP) status. Admission order reviewed. Primary Insurance on file: MEDICARE Secondary Insurance on file:@ Primary care provider on file: Hoang Castellanos, SENIOR CLINICAL STUDY MANAGER [phone] Pharmacy: [facility] [place] - [place], [place] - [address] [facility] [address] [place] [address] [facility] - [place], [place] - [address] [facility] [address] Advance Care Planning: Attempt Cardiopulmonary Resuscitation - Inpatient Received -Advanced Directive: Yes, on file Who is your DPOA-HC?: Sibling Current Functional Ability: Completely Dependent Functional Status Prior to Admission: unable to assess Home Environment: Others in the home: spouse. Current Living Arrangements: home/apartment/condo. Accessibility Concerns: . Current DME: unable to assess [address] [place] [address] Social & Family Supports: All names listed below confirmed with patient as current and correct Extended Emergency Contact Information Primary Emergency Contact: Kyra Mittal Address: [address] [place] Mobile Relation: Sibling Secondary Emergency Contact: jodie espinoza Mobile Relation: Assistant Health Educator Current Care Provided by: unable to assess [...] TBD pending hospital course and rehab evals. PELLETISING EXTRUDER OPERATOR consult requested for emotional support r/t PMH PTSD, bipolar DO and anxiety. Registered Nurse Window Assembler / Fuel Cell Assembler will continue to follow patient???s progress and remain available if situation changes for coordination of care, psychosocial support and/or discharge planning. Office of Care Management Parvin Barksdale MSN, RN Pager #[phone] * Plan of Care - Irasema Calix [...] Operative Note Patient Name: Jeannie Rico : [id number] MR#: [id number] Case Date: 10/30/2021 Surgeon: Surgeon(s) and Role: [...] Lu MD - 10/30/2021 10:44 AM EDT [facility] Operative Note Patient Name: Jeannie Rico : [id number] MR#: [id number] Case Date: 10/30/2021 Surgeon: Surgeon(s) and Role: [...] C6, which was again confirmed by fluoroscopy. Tobacco Blender holes for our screws were then fashioned bilaterally along the lateral masses of C5 and C6 using a modified Magerl technique with insertion point slightly inferior and medial to the midpoint ofthe lateral masses first using the [employer] Cirilo C1 drill bit for the cortical rim, followed by hand drill, tap, and confirmation with ball tip feeler. The right C6 entry point required redirection to avoid entering the facet space. Once we were satisfied with the military pilot holes bone wax was placed in thepilot holes. Attention was then given to laminectomy. The [employer] Cirilo drill M8 bit was used to [...] healing. Attention was then given to closure. [place] irrigation was then performed and meticulous hemostasis [...] then flipped onto the recovery bed, [employer] caf[employer] cook head removed, and extubated without incident. At the [...] 11/02/2021 7:51 PM EDT RAPID COVID-19 PCR ([facility]) Routine 11/02/2021 4:15 PM EDT POCT [...] W/O Facetec Foramot/Dskc 07/26 Vrt Seg, Cervical ([id number]) 10/30/2021 8:44 AM EDT C 5/6 and 6/7 ACDF MODIFIER,POSTERIOR CERVICAL INFINITY MEDTRONIC 10/30/2021 8:44 AM EDT C 5/6 and 6/7 ACDF Posterior Segmental Instrumentation 3-6 Vrt Seg ([id number]) 10/30/2021 8:44 AM EDT C 5/6 and 6/7 ACDF Arthrodesis, Post/Posterolat Tq, Sngle Interspace; Cervical Below C2 Segmnt ([id number]) 10/30/2021 8:44 AM EDT C 5/6 and 6/7 ACDF POCT GLUCOSE Routine 10/30/2021 8:11 AM EDT documented in this encounter Results * POCT Glucose (11/04/2021 11:50 AM EDT) Glucose, POC 97 65 - 199 mg/dL [facility] Comment: Supplemental ranges: <140 mg/dL before meals <180 mg/dL all other times of the day Blood 11/04/2021 11:5 0 AM EDT 11/04/2021 11:50 AM EDT Campos Schumacher MD POINT OF CARE TEST O ALYSON [facility] [place] [address] * POCT Glucose (11/04/2021 7:41 AM EDT) Glucose, POC 133 65 - 199 mg/dL [facility] Comment: Supplemental ranges: <140 mg/dL before meals <180 mg/dL all other times of the day Blood 11/04/2021 7:41 AM EDT 11/04/2021 7:41 AM EDT Campos Schumacher MD POINT OF CARE TEST O ALYSON Performing Organization Address [facility]/ZIP Co de Phone Number [facility] [place] [address] * POCT Glucose (11/04/2021 3:56 AM EDT) Glucose, POC 85 65 - 199 mg/dL [facility] Comment: Supplemental ranges: <140 mg/dL before meals <180 mg/dL all other times of the day Blood 11/04/2021 3:56 AM EDT 11/04/2021 3:56 AM EDT Campos Schumacher MD POINT OF CARE TEST O ALYSON Performing Organization Address City/[facility]/ZIP Co de Phone Number [facility] [place] [address] * POCT Glucose (11/03/2021 11:46 PM EDT) Glucose, POC 98 65 - 199 mg/dL [facility] Comment: Supplemental ranges: <140 mg/dL before meals <180 mg/dL all other times of the day Blood 11/03/2021 11:4 6 PM EDT 11/03/2021 11:46 PM EDT Campos Schumacher MD POINT OF CARE TEST O JEREMYERAKE [facility] [place] [address] * POCT Glucose (11/03/2021 7:56 PM EDT) Glucose, POC 95 65 - 199 mg/dL [facility] Comment: Supplemental ranges: <140 mg/dL before meals <180 mg/dL all other times of the day Blood 11/03/2021 7:56 PM EDT 11/03/2021 7:56 PM EDT Campos Schumacher MD POINT OF CARE TEST O JEREMYERAKE Performing Organization Address City/[facility]/ZIP Co de Phone Number [facility] [place] [address] * (ABNORMAL) POCT Glucose (11/03/2021 3:15 PM EDT) Glucose, POC 216(H) 65 - 199 mg/dL [facility] Comment: Supplemental ranges: <140 mg/dL before meals <180 mg/dL all other times of the day Blood 11/03/2021 3:15 PM EDT 11/03/2021 3:15 PM EDT Campos Schumacher MD POINT OF CARE TEST O RDERABLES Performing Organization Address City/[facility]/ZIP Co de Phone Number [facility] [place] [address] * (ABNORMAL) POCT Glucose (11/03/2021 12:03 PM EDT) Glucose, POC 307(H) 65 - 199 mg/dL [facility] Comment: Supplemental ranges: <140 mg/dL before meals <180 mg/dL all other times of the day Blood 11/03/2021 12:0 3 PM EDT 11/03/2021 12:03 PM EDT Campos Schumacher MD POINT OF CARE TEST O ALYSON Performing Organization Address [facility]/ZIP Co de Phone Number [facility] [place] [address] * POCT Glucose (11/03/2021 7:44 AM EDT) Glucose, POC 110 65 - 199 mg/dL [facility] Comment: Supplemental ranges: <140 mg/dL before meals <180 mg/dL all other times of the day Blood 11/03/2021 7:44 AM EDT 11/03/2021 7:44 AM EDT Campos Schumacher MD POINT OF CARE TEST O ALYSON Performing Organization Address [facility] Co de Phone Number [facility] [place] [address] * POCT Glucose (11/03/2021 4:13 AM EDT) Glucose, POC 103 65 - 199 mg/dL [facility] Comment: Supplemental ranges: <140 mg/dL before meals <180 mg/dL all other times of the day Blood 11/03/2021 4:13 AM EDT 11/03/2021 4:13 AM EDT Campos Schumacher MD POINT OF CARE TEST O ALYSON Performing Organization Address [facility]/ZIP Co de Phone Number [facility] [place] [address] * POCT Glucose (11/03/2021 12:03 AM EDT) Glucose, POC 100 65 - 199 mg/dL [facility] Comment: Supplemental ranges: <140 mg/dL before meals <180 mg/dL all other times of the day Blood 11/03/2021 12:0 3 AM EDT 11/03/2021 12:03 AM EDT Campos Schumacher MD POINT OF CARE TEST O RDERAKE [facility] [place] [address] * POCT Glucose (11/02/2021 7:51 PM EDT) Pathologist [facility] Glucose, POC 116 65 - 199 mg/dL [facility] Comment: Supplemental ranges: <140 mg/dL before meals <180 mg/dL all other times of the day Blood 11/02/2021 7:51 PM EDT 11/02/2021 7:51 PM EDT Campos Schumacher MD POINT OF CARE TEST O ALYSON Performing Organization Address [facility] Co de Phone Number [facility] [place] [address] * COVID-19 PCR (11/02/2021 4:15 PM EDT) [facility] SARS-CoV-2 RNA (Rapid) Not Detected Not Detected [facility] [...] using the Simplexa COVID-19 Direct Assay by Quippi as authorized by the FDA issued Emergency [...] Department of Pathology and Laboratory Medicine at [facility], certified under the Clinical Laboratory [...] fact sheets at the following FDA website: https://www.fda.gov/medical-devices/adhgonwvcql-cfnrzpz-8808-yrmiq-16-jpwuatpuw- use-a kxrlspfvaoieu-aqggsvk-iradmqh/jgser-hwktyvglyfe-pdsj SARS-CoV-2 Source HAND PACKER/PACKAGER Swab [place] [facility] Nasopharyngeal Swab 11/03/19 4:15 PM EDT 11/02/2021 5:10 PM EDT Comment:Symptoms->Surveillan ce Narrative Resulting Agency Comment Spec In Lab Campos Schumacher MD MICROBIOLOGY - GENER AL ORDERABLES [facility] [place] [address] * POCT Glucose (11/02/2021 3:35 PM EDT) Glucose, POC 100 65 - 199 mg/dL [facility] Comment: Supplemental ranges: <140 mg/dL before meals <180 mg/dL all other times of the day Blood 11/02/2021 3:35 PM EDT 11/02/2021 3:35 PM EDT Campos Schumacher MD POINT OF CARE TEST O ALYSON Performing Organization Address City/[facility]/ZIP Co de Phone Number [facility] [place] [address] * POCT Glucose (11/02/2021 11:57 AM EDT) Glucose, POC 77 65 - 199 mg/dL [facility] Comment: Supplemental ranges: <140 mg/dL before meals <180 mg/dL all other times of the day Blood 11/02/2021 11:5 7 AM EDT 11/02/2021 11:57 AM EDT Campos Schumacher MD POINT OF CARE TEST O ALYSON Performing Organization Address [facility] Co de Phone Number [facility] [place] [address] * XR Chest PA & Lateral (Generic) [...] who have questions please contact the health elderly caregiver that requested your imaging first. ? Narrative [...] patients who have questions please contactthe health elderly caregiver that requested your imaging first. Campos Schumacher MD IMG DX ORDERABLES * POCT Glucose (11/02/2021 7:20 AM EDT) Glucose, POC 97 65 - 199 mg/dL [facility] Comment: Supplemental ranges: <140 mg/dL before meals <180 mg/dL all other times of the day Blood 11/02/2021 7:20 AM EDT 11/02/2021 7:20 AM EDT Campos Schumacher MD POINT OF CARE TEST O RDERABLES Performing Organization Address City/[facility]/ZIP Co de Phone Number [facility] [place] [address] * Duplex Study for DVT, Bilat legs (11/02/2021 7:15 AM EDT) VB Text Report Department: Vascular Surgery Lab Patient: [id number] (JEANNIE RICO) CPT: 79404 Referring Physician: CAMPOS SCHUMACHER ?? Indications: New [...] Schumacher MD VASCULAR ORDERABLES Performing Organization Address [facility]/ZIP Co de Phone Number [facility] * POCT Glucose (11/02/2021 4:02 AM EDT) Glucose, POC 90 65 - 199 mg/dL [facility] Comment: Supplemental ranges: <140 mg/dL before meals <180 mg/dL all other times of the day Blood 11/02/2021 4:02 AM EDT 11/02/2021 4:02 AM EDT Campos Schumacher MD POINT OF CARE TEST O RDLEOBARDO Performing Organization Address [facility] Co de Phone Number [facility] [place] [address] * POCT Glucose (11/01/2021 11:59 PM EDT) Glucose, POC 97 65 - 199 mg/dL [facility] Comment: Supplemental ranges: <140 mg/dL before meals <180 mg/dL all other times of the day Blood 11/01/2021 11:5 9 PM EDT 11/01/2021 11:59 PM EDT Campos Schumacher MD POINT OF CARE TEST O ALYSON Performing Organization Address [facility] Co de Phone Number [facility] [place] [address] * CT Head wo & Multiphase CTA [...] who have questions please contact the health elderly caregiver that requested your imaging first. ? Narrative 11/02/2021 12:47 AM EDT EXAMINATION: CT HEAD WO & MULTIPHASE CTA HEAD/NECK (THROMBECTOMY PROTOCOL) CLINICAL HISTORY: cva sx. neuro feficiets TECHNIQUE: CT of head without intravenous contrast. Multiphase CTA of the carotids and [place] is performed after the administration [...] dissection. Bilateral vertebral arteries, basilar artery, bilateral suction worker, and bilateral posterior communicating arteries are [...] intravenous contrast. Multiphase CTA of the carotidsand [place] is performed after the administration [...] dissection. Bilateral vertebral arteries, basilar artery, bilateral suction worker, andbilateral posterior communicating arteries are patent without evidence ofhemodynamically significant stenosis, aneurysm or dissection. Diminutive right N2yqahrps. No perfusion asymmetry on the delayed phase [...] patients who have questions please contactthe health elderly caregiver that requested your imaging first. Campos Schumacher MD IMG CT ORDERABLES * POCT Glucose (11/01/2021 7:50 PM EDT) Glucose, POC 91 65 - 199 mg/dL [facility] Comment: Supplemental ranges: <140 mg/dL before meals <180 mg/dL all other times of the day Blood 11/01/2021 7:50 PM EDT 11/01/2021 7:50 PM EDT Campos Schumacher MD POINT OF CARE TEST O RDERAKE Performing Organization Address City/[facility]/ZIP Co de Phone Number [facility] [place] [address] * POCT Glucose (11/01/2021 4:01 PM EDT) Glucose, POC 110 65 - 199 mg/dL [facility] Comment: Supplemental ranges: <140 mg/dL before meals <180 mg/dL all other times of the day Blood 11/01/2021 4:01 PM EDT 11/01/2021 4:01 PM EDT Campos Schumacher MD POINT OF CARE TEST O JEREMYERAKE [facility] [place] [address] * POCT Glucose (11/01/2021 11:56 AM EDT) Glucose, POC 119 65 - 199 mg/dL [facility] Comment: Supplemental ranges: <140 mg/dL before meals <180 mg/dL all other times of the day Blood 11/01/2021 11:5 6 AM EDT 11/01/2021 11:56 AM EDT Campos Schumacher MD POINT OF CARE TEST O ALYSON Performing Organization Address City/[facility]/ZIP Co de Phone Number [facility] [place] [address] * POCT Glucose (11/01/2021 7:52 AM EDT) Glucose, POC 108 65 - 199 mg/dL [facility] Comment: Supplemental ranges: <140 mg/dL before meals <180 mg/dL all other times of the day Blood 11/01/2021 7:52 AM EDT 11/01/2021 7:52 AM EDT Campos Schumacher MD POINT OF CARE TEST O ALYSON Performing Organization Address City/[facility]/ZIP Co de Phone Number [facility] [place] [address] * POCT Glucose (11/01/2021 3:09 AM EDT) Glucose, POC 117 65 - 199 mg/dL [facility] Comment: Supplemental ranges: <140 mg/dL before meals <180 mg/dL all other times of the day Blood 11/01/2021 3:09 AM EDT 11/01/2021 3:09 AM EDT Campos Schumacher MD POINT OF CARE TEST O ALYSON Performing Organization Address City/[facility] Co de Phone Number [facility] [place] [address] * POCT Glucose (11/01/2021 12:37 AM EDT) Glucose, POC 134 65 - 199 mg/dL [facility] Comment: Supplemental ranges: <140 mg/dL before meals <180 mg/dL all other times of the day Blood 11/01/2021 12:3 7 AM EDT 11/01/2021 12:37 AM EDT Campos Schumacher MD POINT OF CARE TEST O ALYSON Performing Organization Address City/[facility]/ZIP Co de Phone Number [facility] [place] [address] * POCT Glucose (10/31/2021 8:17 PM EDT) Glucose, POC 109 65 - 199 mg/dL [facility] Comment: Supplemental ranges: <140 mg/dL before meals <180 mg/dL all other times of the day Blood 10/31/2021 8:17 PM EDT 10/31/2021 8:17 PM EDT Campos Schumacher MD POINT OF CARE TEST O ALYSON Performing Organization Address [facility]/ZIP Co de Phone Number [facility] [place] [address] * POCT Glucose (10/31/2021 4:16 PM EDT) Glucose, POC 129 65 - 199 mg/dL [facility] Comment: Supplemental ranges: <140 mg/dL before meals <180 mg/dL all other times of the day Blood 10/31/2021 4:16 PM EDT 10/31/2021 4:16 PM EDT Campos Schumacher MD POINT OF CARE TEST O ALYSON Performing Organization Address City/[facility] Co de Phone Number [facility] [place] [address] * (ABNORMAL) pro-Brain Natriuretic Peptide (10/31/2021 12:21 PM EDT) NT-proBNP 428(H) <=124 pg/mL [facility] Blood Venous Draw / Unknown 10/31/2021 12:21 PM EDT 10/31/2021 12:57 PM EDT Narrative Resulting Agency Comment Spec In Lab Cheryl GR CHEMISTRY ORDERAB LES Performing Organization Address [facility] Co de Phone Number [facility] [place] [address] * Troponin (10/31/2021 12:21 PM EDT) [facility] Troponin-T <0.01 0.00 - 0.00 ng/mL [facility] Comment: The 99th percentile for Troponin T is less than 0.01 ng/mL, any detectable cTnT concentration using this assay should be considered elevated. According to the third universal definition of myocardial infarction the following criteria with a clinical presentation consistent with acute myocardial ischemia meets the diagnosis for a myocardial infarction ([place]). Detection of a rise and/or fall of cTnT, with at least one value greater than the 99th percentile (> or = 0.01) and with at least one of the following ?? Symptoms of ischemia ?? New or presumed new significant ZY-[id number]-G wave (ST-T) changes or new left bundle [...] additional sample may be indicated. Reference: Third Arthur Definition of Myocardial Infarction. Journal of the [place] 2012;60:1581-98 Blood 10/31/2021 12:2 1 PM EDT 10/31/2021 12:32 PM EDT Narrative Resulting Agency Comment Spec In Lab Campos Schumacher MD CHEMISTRY ORDERABLES Performing Organization Address [facility]/ZIP Co de Phone Number [facility] [place] [address] * (ABNORMAL) Basic Metabolic Panel (non-fasting) (10/31/2021 12:21 PM EDT) Glucose 118 65 - 199 mg/dL [facility] Comment:Diabetes: >=200 mg/d L plus symptoms Blood Urea Nitrogen 12 8 - 18 mg/dL [facility] Creatinine 0.74 0.70 - 1.20 mg/dL [facility] Sodium 134(L) 135 - 145 mmol/L [facility] Potassium 4.7 3.5 - 5.0 mmol/L [facility] Comment: Please note: ??Patients with WBC >100,000 may have falsely elevated Potassium levels. ??For accurate Potassium quantification in these patients send serum separator tube (gold top) for subsequent determinations. ??Contact the Clinical Chemistry Laboratory if there are any questions. Chloride 98 98 - 107 mmol/L [facility] Carbon Dioxide 28 22 - 31 mmol/L [facility] Anion Gap 8 5 - 15 mmol/L [facility] Calcium 9.0 8.5 - 10.5 mg/dL [facility] Est Glomerular Filtration Rate 87 >=60 mL/min/1. 73 m?? [facility] Comment: This patient? s estimated [...] In Lab Campos Schumacher MD CHEMISTRY ORDERABLES [facility] [place] [id number] * Phosphorus (10/31/2021 12:21 PM EDT) Phosphorus 4.4 2.5 - 4.5 mg/dL [facility] Blood 10/31/2021 12:2 1 PM EDT 10/31/2021 12:27 PM EDT Narrative Resulting Agency Comment Spec In Lab Campos Schumacher MD CHEMISTRY ORDERABLES Performing Organization Address City/[facility]/ZIP Co de Phone Number [facility] [place] [address] * Magnesium (10/31/2021 12:21 PM EDT) Pathologist [facility] Magnesium 0.78 0.69 - 1.07 mmol/L [facility] Blood 10/31/2021 12:2 1 PM EDT 10/31/2021 12:27 PM EDT Narrative Resulting Agency Comment Spec In Lab Campos Schumacher MD CHEMISTRY ORDERABLES Performing Organization Address City/[facility]/ZIP Co de Phone Number [facility] [place] [address] * EKG 12 Lead (10/31/2021 12:08 PM EDT) Ventricular rate 59 BPM MUSE SYSTEM Atrial Rate 59 BPM MUSE SYSTEM P-R Interval 142 ms MUSE SYSTEM QRS Duration 82 ms MUSE SYSTEM Q-T Interval 408 ms MUSE SYSTEM QTC Calculated (Bezet) 403 ms MUSE SYSTEM Calculated P Birney 9 degrees MUSE SYSTEM Calculated R Birney 27 degrees MUSE SYSTEM Calculated T Birney 11 degrees MUSE SYSTEM INTERPRETATION Sinus bradycardia [...] Glucose, POC 118 65 - 199 mg/dL [facility] Comment: Supplemental ranges: <140 mg/dL before meals <180 mg/dL all other times of the day Blood 10/31/2021 11:5 3 AM EDT 10/31/2021 11:53 AM EDT Campos Schumacher MD POINT OF CARE TEST O RDERABLES Performing Organization Address City/[facility]/ZIP Co de Phone Number [facility] [place] [address] * (ABNORMAL) Differential, Automated (10/31/2021 8:14 AM EDT) Neutrophil % 85.7 % [facility] Neutrophil Absolute 9.06(H) 1.70 - 6.10 x10(3)/mc L [facility] Lymph % 6.3 % [facility] Lymphocytes Abs 0.7(L) 0.9 - 3.2 x10(3)/mc L [facility] Monocyte % 7.1 % [facility] Monocyte Abs 0.8 0.3 - 0.9 x10(3)/mc L [facility] Eos % 0.2 % [facility] Eosinophils Abs 0.0 0.0 - 0.4 x10(3)/mc L [facility] Basophil % 0.3 % [facility] Baso Absolute 0.0 0.0 - 0.1 x10(3)/mc L [facility] Immature Gran % 0.40 % [facility] Comment: Immature granulocytes(IG's)percentage and absolute count will include metamyelocytes, myelocytes, and promyelocytes. Blood smears from CBCs yielding IG's will be scanned manually for concordance. If this scan disagrees with the automated IG or if promyelocytes are noted, a manual differential will be performed. Immature Gran Absolute 0.04 0.00 - 0.04 x10(3)/ L [facility] Blood 10/31/2021 8:14 AM EDT 10/31/2021 8:47 AM EDT Narrative Resulting Agency Comment Spec In Lab Melania Gaxiola MD HEMATOLOGY ORDERAB LES [facility] [place] [address] * (ABNORMAL) Hemogram (10/31/2021 8:14 AM EDT) White Blood Cell 10.6(H) 4.0 - 9.5 x10(3)/[facility] Red Blood Cell 4.26 4.00 - 5.21 x10(6)/[facility] Hemoglobin 13.0 11.7 - 15.5 g/dL [facility] Hematocrit 40.9 35.7 - 45.8 % [facility] Mean Cell Volume 96.0(H) 82.6 - 94.4 fL [facility] Mean Cell Hemoglobin 30.5 27.1 - 32.0 pg [facility] Mean Cell Hemoglobin Concentration 31.8 31.7 - 35.0 g/dL [facility] Platelet 210 145 - 357 x10(3)/ L [facility] RDW Standard Deviation 47.4(H) 37.0 - 46.0 [facility] RDW coefficient of variation 13.2 11.5 - 14.1 % [facility] Mean Platelet Volume 9.8 7.6 - 12.9 [facility] NRBC% auto 0.0 % [facility] NRBC Absolute 0.000 0.000 - 0.000 x10(3)/ L [facility] Blood 10/31/2021 8:14 AM EDT 10/31/2021 8:47 AM EDT Narrative Resulting Agency Comment Spec In Lab Melania Gaxiola MD HEMATOLOGY ORDERAB LES [facility] [place] [address] * POCT Glucose (10/31/2021 7:50 AM EDT) Glucose, POC 111 65 - 199 mg/dL [facility] Comment: Supplemental ranges: <140 mg/dL before meals <180 mg/dL all other times of the day Blood 10/31/2021 7:50 AM EDT 10/31/2021 7:50 AM EDT Campos Schumacher MD POINT OF CARE TEST O RDERAKE Performing Organization Address [facility]/ZIP Co de Phone Number [facility] [place] [address] * POCT Glucose (10/31/2021 5:36 AM EDT) Glucose, POC 116 65 - 199 mg/dL [facility] Comment: Supplemental ranges: <140 mg/dL before meals <180 mg/dL all other times of the day Blood 10/31/2021 5:36 AM EDT 10/31/2021 5:36 AM EDT Campos Schumacher MD POINT OF CARE TEST O ALYSON Performing Organization Address City/[facility]/ZIP Co de Phone Number [facility] [place] [address] * POCT Glucose (10/30/2021 11:28 PM EDT) Glucose, POC 119 65 - 199 mg/dL [facility] Comment: Supplemental ranges: <140 mg/dL before meals <180 mg/dL all other times of the day Blood 10/30/2021 11:2 8 PM EDT 10/30/2021 11:28 PM EDT Campos Schumacher MD POINT OF CARE TEST O RDERAKE Performing Organization Address [facility] Co de Phone Number [facility] [place] [address] * POCT Glucose (10/30/2021 7:50 PM EDT) Glucose, POC 142 65 - 199 mg/dL [facility] Comment: Supplemental ranges: <140 mg/dL before meals <180 mg/dL all other times of the day Blood 10/30/2021 7:50 PM EDT 10/30/2021 7:50 PM EDT Campos Schumacher MD POINT OF CARE TEST O ALYSON Performing Organization Address [facility] Co de Phone Number [facility] [place] [address] * XR Cervical Spine 2 or 3 [...] who have questions please contact the health elderly caregiver that requested your imaging first. ? Narrative [...] patients who have questions please contactthe health elderly caregiver that requested your imaging first. Electronically signed by: YANET GNAN [facility] ([phone]),at 10/31/2021 10:23 AM Campos Schumacher MD IMG DX ORDERABLES * POCT Glucose (10/30/2021 3:17 PM EDT) Glucose, POC 103 65 - 199 mg/dL [facility] Comment: Supplemental ranges: <140 mg/dL before meals <180 mg/dL all other times of the day Blood 10/30/2021 3:17 PM EDT 10/30/2021 3:17 PM EDT Campos Schumacher MD POINT OF CARE TEST O ALYSON Performing Organization Address [facility] de Phone Number [facility] [place] [address] * XR Fluoro No Rad <1Hr - OR Use (10/30/2021 1:30 PM EDT) Narrative Dicom, Auditing User - 10/30/2021 2:07 PM EDT This exam is auto-finalizing. No interpretation was done. Campos Schumacher MD IMG FLUORO ORDERABLE S * POCT Glucose (10/30/2021 8:11 AM EDT) Glucose, POC 110 65 - 199 mg/dL [facility] Comment: Supplemental ranges: <140 mg/dL before meals <180 mg/dL all other times of the day Blood 10/30/2021 8:11 AM EDT 10/30/2021 8:11 AM EDT Campos Schumacher MD POINT OF CARE TEST O ALYSON Performing Organization Address [facility] de Phone Number [facility] [place] [address] documented in this encounter Visit Diagnoses Diagnosis [...] Routine documented in this encounter Care Teams Grain Oilseed Or Pasture Grower Relationship Specialty Start Date End Date Hoang Castellanos, SENIOR CLINICAL STUDY MANAGER [address] [place] [address] PCP - General Family Medicine 03/12/20 documented as of this encounter
--- OUTSIDE RECORDS SUMMARY | 2024-08-07 14:07 | XMS_ITS | Encounter Summary ---
Author Organization Formerly [facility] Address [facility] [place] [address] Care Team Providers Care Assistant Manager Trainee Name Role Phone Hoang Castellanos APRN Primary Care Provider Reason for Visit * Reason Onset Date Comments Medication Refill 09/28/2021 Encounter Details Date Type Department Care Team (Late st Contact Info) Description 09/28/2021 Refill Primary Care at [facility] [address] [facility] [place] [address] Hoang Castellanos APRN [address] [place] [address] Social History Tobacco Use Types Packs/Day Years [...] filedocumented in this encounter Care Teams Assistant Manager Trainee Relationship Specialty Start Date End Date Hoang Castellanos, PUBLIC HEALTH REGISTRAR [address] [place] [address] PCP - General Family Medicine 03/12/20 documented as of this encounter
--- OUTSIDE RECORDS SUMMARY | 2024-08-07 14:07 | XMS_ITS | Encounter Summary ---
Author Organization [place] [address] Care Team Providers Care Table Games Shift Manager Name Role Phone Hoang Castellanos APRN Primary Care Provider [phone] Reason for Visit * Reason Comments Medication Refill Encounter Details Date Type Department Care Team (Late st Contact Info) Description 09/28/2021 Refill Primary Care at [facility] [address] [place] [phone] Hoang Castellanos APRN [address] [facility] [place] [address] Social History Tobacco Use Types Packs/Day Years [...] * Telephone Encounter - Maria D Joshi [facility] - 09/28/2021 1:19 PM EST [...] filedocumented in this encounter Care Teams Table Games Shift Manager Relationship Specialty Start Date End Date Hoang Castellanos, ASSET SPECIALIST [address] [place] [address] PCP - General Family Medicine 03/12/20 documented as of this encounter
--- OUTSIDE RECORDS SUMMARY | 2024-08-07 14:08 | XMS_ITS | Encounter Summary ---
Author Organization [facility] [place] [address] Care Team Providers Care Electricity Trader Name Role Phone Hoang Castellanos APRN Primary Care Provider Encounter Details Date Type Department Care Team (Latest Contact Info) Description 2021 10:50 AM EDT Laboratory Appointment Laboratory at [facility] [address] [place] [phone] Seizures; Myelopathy; Bipolar affective disorder, remission status [...] MD HEMATOLOGY ORDERABLE S Performing Organization Address City/[facility]/ZIP Co de Phone Number LABORATORY [address] [place] [address] * Hemoglobin A1c (2021 10:54 AM EDT) Hemoglobin A1c 5.6 4.3 - 5.6 % LAB[facility]ORY Estimated Average Glucose 114 mg/dL LAB[facility]ORY Blood 2021 10:5 4 AM EDT 2021 11:55 AM EDT Narrative Resulting Agency Comment Spec In Lab Hoang Castellanos APRN CHEMISTRY ORDERABLES Performing Organization Address City/[facility]/ZIP Co de Phone Number LABORATORY [address] [place] [address] * Lamotrigine Lvl (2021 10:54 AM EDT) Lamotrigine Lvl (NOVEMBER) 3.7 2.5 - 15.0 mcg/mL LAB[facility]ORY Comment: ADDITIONAL INFORMATION This test was developed and its performance characteristics determined by [facility] in a manner consistent with CLIA requirements. This test has not been cleared or approved by the U.S. Food and Drug Administration. Test Performed by: [facility] - [facility] [address] [place] [address] Seismograph Shooter: Skinny Reyes M.D. Ph.D.; CLIA# [id number] Blood 2021 10:5 4 AM EDT 2021 4:54 PM EDT Narrative Resulting Agency Comment Spec In Lab Gurjit Bass MD LAB SEND OUT ORDERAB LES Performing Organization Address [facility]/ZIP Co de Phone Number [facility] [address] [place] [address] * Vitamin B12 (2021 10:54 AM EDT) Pathologist [facility] Vitamin B12 1,017 232 - 1,245 pg/mL [facility] Blood 2021 10:5 4 AM EDT 2021 4:48 PM EDT Narrative Resulting Agency Comment Spec In Lab Gurjit Bass MD CHEMISTRY ORDERABLES Performing Organization Address [facility] Co de Phone Number [facility] [place] [address] * (ABNORMAL) Comprehensive metabolic panel (non-fasting) (2021 [...] Bass MD CHEMISTRY ORDERABLES LABORATORY [address] [place] [address] * T4 Total (2021 10:54 AM EDT) T4 Total 8.2 5.3 - 11.6 mcg/dL [facility] Comment: Reference Interval (mcg/dL): Females: ??First Trimester: 6.3-13.5 ??Second Trimester: 7.1-14.3 ??Third Trimester: 6.9-14.1 Blood 2021 10:5 4 AM EDT 2021 11:55 AM EDT Narrative Resulting Agency Comment Spec In Lab Gurjit Bass MD CHEMISTRY ORDERABLES Performing Organization Address City/[facility] Co de Phone Number [facility] [address] [place] [address] * TSH (2021 10:54 AM EDT) Thyroid Stimulating Hormone 2.40 0.27 - 4.20 mcIU/mL LABORATORY Comment: Reference Interval (mcIU/mL): Females: ??First Trimester: 0.23-3.88 ??Second Trimester: 0.22-3.90 ??Third Trimester: 0.44-4.66 Blood 2021 10:5 4 AM EDT 2021 11:55 AM EDT Narrative Resulting Agency Comment Spec In Lab Gurjit Bass MD CHEMISTRY ORDERABLES Performing Organization Address [facility] Co de Phone Number [facility] [address] [place] [address] * Lyme IgG & IgM Antibody (2021 10:54 AM EDT) Lyme Antibody Neg Neg [facility] Blood 2021 10:5 4 AM EDT 05/28/2021 6:53 AM EDT Narrative Resulting Agency Comment Spec In Lab Gurjit Bass MD IMMUNOLOGY ORDERABLE S Performing Organization Address City/[facility]/ZIP Co de Phone Number [facility] [place] [address] * (ABNORMAL) Hemogram (2021 10:54 AM EDT) [...] Bass MD HEMATOLOGY ORDERABLE S LABORATORY [address] [place] [address] documented in this encounter Visit Diagnoses Diagnosis Seizures Other convulsions Myelopathy Unspecified disease of spinal cord Bipolar affective disorder, remission status unspecified Type 2 diabetes mellitus without complication, without long-term current use of insulin documented in this encounter Care Teams Electricity Trader Relationship Specialty Start Date End Date Hoang Castellanos, BLUE LINE TRIMMER [address] [place] [address] PCP - General Family Medicine 03/12/20 documented as of this encounter
--- OUTSIDE RECORDS SUMMARY | 2024-08-07 14:08 | XMS_ITS | Encounter Summary ---
Author Organization [facility] [place] [address] Care Team Providers Care Ink Printer Name Role Phone Hoang Castellanos APRN Primary Care Provider Reason for Visit * Reason Onset Date Comments TeleHealth 06/04/2021 Encounter Details Date Type Department Care Team (Late st Contact Info) Description 06/04/2021 [place] [address] Campos Puente MD [facility] [place] [address] TeleHealth Social History Tobacco Use Types Packs/Day [...] on filedocumented in this encounter Care Teams Ink Printer Relationship Specialty Start Date End Date Hoang Castellanos, SAM [address] [place] [address] PCP - General Family Medicine 03/12/20 documented as of this encounter
--- OUTSIDE RECORDS SUMMARY | 2024-08-07 14:08 | XMS_ITS | Encounter Summary ---
[place] [address] Care Team Providers Care Concrete Placement Equipment Operator Name Role Phone Hoang Castellanos APRN Primary Care Provider Reason for Visit * Reason Onset Date Comments Other 06/22/2021 Encounter Details Date Type Department Care Team (Late st Contact Info) Description 06/22/2021 Tele[place] [phone] Gurjit Bass MD Other Social History Tobacco [...] 06/22/2021 11:56 AM EST Call Center / [place] Message - General Issue Call Provider patient sees in Clinic: Gurjit Bass Caller and relationship (if other than patient-full name): [employer] and position if other than patient or family: n Call back number: [phone] Ok to leave a message: y Reason [...] Nurse: y ??? Routine message sent to [place]: n Nurse/[place] contacted via: Message: y Call: n Pager: n documented in this encounter Plan of Treatment Not on file documented as of this encounter Visit Diagnoses Not on filedocumented in this encounter Care Teams Concrete Placement Equipment Operator Relationship Specialty Start Date End Date Hoang Castellanos, CARGO AGENT [address] [place] [address] PCP - General Family Medicine 03/12/20 documented as of this encounter
--- OUTSIDE RECORDS SUMMARY | 2024-08-07 14:08 | XMS_ITS | Encounter Summary ---
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 Discharge Disposition: Home [...] Sustained Release 24 hrIndications: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 TAKE ONE (1) [...] 09/28/2021 Ventolin HFA 90 mcg/actuation HFA Aerosol InhalerIndications: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 Processing 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 randell obstructive pulmonary disease, unspecified COPD type [...] 12:06 PM EDT 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 documented in this encounter Results * Nuclear Pharmacologic Stress Cardiology (04/15/2021 12:06 PM EDT) Anatomical Region Laterality Modality Other Benito Reed MD CARDIAC SERVICE S ORDERABLES documented in this encounter Visit Diagnoses Diagnosis 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 documented in this encounter Care Teams Vp Genetic Relationship Specialty Start Date End Date Hoang Castellanos, RAIL EXPRESS CLERK [address] [place] [address] PCP - General Family Medicine 03/12/20 documented as of this encounter
--- OUTSIDE RECORDS SUMMARY | 2024-08-07 14:08 | XMS_ITS | Encounter Summary ---
Author Organization [place] [address] Care Team Providers Care Office Support Associate Name Role Phone Hoang Castellanos APRN Primary Care Provider Reason for Visit * Reason Onset Date Comments TeleHealth 07/28/2021 Encounter Details Date Type Department Care Team (Late st Contact Info) Description 07/28/2021 [place] [phone] Gurjit Bass MD [facility] [place] [address] TeleHealth Social History Tobacco Use Types Packs/Day [...] filedocumented in this encounter Care Teams Office Support Associate Relationship Specialty Start Date End Date Hoang Castellanos, SAM [address] [place] [address] PCP - General Family Medicine 03/12/20 documented as of this encounter
--- OUTSIDE RECORDS SUMMARY | 2024-08-07 14:08 | XMS_ITS | Encounter Summary ---
[place] [address] Care Team Providers Care Armored Car Driver Name Role Phone Trever Castellanos APRN Primary Care Provider Reason for Visit * Reason Onset Date Comments New Medication Request 05/20/2021 Encounter Details Date Type Department Care Team (Late st Contact Info) Description 05/20/2021 Telephone Primary Care at [facility] [place] [phone] Jaennie Luciano RN New Medication Request Social History [...] BID was going to be sent to [facility] after her conversation with trever Castellanos APRN. Routed note to PCP. documented in this encounter Plan of Treatment Not on file documented as of this encounter Visit Diagnoses Diagnosis Cervicalgia Chronic pain syndrome documented in this encounter Care Teams Armored Car Driver Relationship Specialty Start Date End Date Trever Castellanos, TECHNOLOGY TEACHER [address] [place] [address] PCP - General Family Medicine 03/12/20 documented as of this encounter
--- OUTSIDE RECORDS SUMMARY | 2024-08-07 14:08 | XMS_ITS | Encounter Summary ---
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 Procedures NM Pharmacologic Stress and Rest Myocardial Perfusion Dustin Haynes, [facility] [place] [address] [place] [address] Referral ID Status Reason Start Date Expiration Date V isits Requested Visits Authorized [id number] Closed Specialty Service Requested 02/16/2021 07/24/2021 1 1 Encounter Details Date Type Department Care Team (Late st Contact Info) Description 04/15/2021 10:32 AM EDT Hospital Encounter [place] [address] Benito Reed MD [facility] [place] [address] Discharge Disposition: Home Social History [...] Sustained Release 24 hrIndications:Coronary artery disease involving wales coronary artery of wales heart without angina pectoris TAKE ONE (1) [...] 09/28/2021 Ventolin HFA 90 mcg/actuation HFA Aerosol InhalerIndications: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
--- OUTSIDE RECORDS SUMMARY | 2024-08-07 14:08 | XMS_ITS | Encounter Summary ---
[place] [address] Care Team Providers Care Panel Lay Up Worker Name Role Phone Hoang Castellanos APRN Primary Care Provider Reason for Referral * Diagnostic Test (Routine) - Closed Specialty Diagnoses / Procedures Referred By Contac t Referred To Contact Radiology Diagnoses Cervical spondylosis Procedures CT Cervical Spine wo Contrast Campos Puente MD [facility] [place] [address] [facility] [place] [address] Referral ID Status Reason Start Date Expiration Date V isits Requested Visits Authorized [id number] Closed Specialty Service Requested 08/09/2021 02/06/2023 1 1 Encounter Details Date Type Department Care Team (Late st Contact Info) Description 08/06/2021 10:00 AM EST [place] [address] Campos Puente MD [facility] [place] [address] Cervical spondylosis Social History Tobacco [...] is accompanied to this visit by her extruder operator helper. She states that her function has been [...] questions please contact the health wound care technician that requested your imaging first. ? Narrative [...] have questions please contactthe health wound care technician that requested your imaging first. Campos Puente MD IMG CT ORDERABLES documented in this encounter Visit Diagnoses Diagnosis Cervical spondylosis Cervical spondylosis without myelopathy Cervical spondylosis Cervical spondylosis without myelopathy documented in this encounter Care Teams Panel Lay Up Worker Relationship Specialty Start Date End Date Hoang Castellanos, METEOROLOGICAL AIDE [address] [place] [address] PCP - General Family Medicine 03/12/20 documented as of this encounter
--- OUTSIDE RECORDS SUMMARY | 2024-08-07 14:08 | XMS_ITS | Encounter Summary ---
Author Organization [place] [address] Care Team Providers Care Prepress Supervisor Name Role Phone Hoang Castellanos APRN Primary Care Provider Reason for Visit * Reason Onset Date Comments Pre-op Exam 05/13/2021 Encounter Details Date Type Department Care Team (Late st Contact Info) Description 05/13/2021 Telephone Primary Care at [facility] [address] [facility] [address] Hoang Castellanos APRN [address] [place] [address] Pre-op Exam Social History Tobacco Use Types [...] know. * Telephone Encounter - Hoang Castellanos, ORNAMENTAL IRON ERECTOR - 05/13/2021 1:04 PM EDT Thomas! I just took a call from Angela Espinoza who is the sample case porter for Jeannie Bates called and has a few questions regarding her care. Please call her at [phone]. I received the above message from Amanda [...] attest that you are eligible, please call [phone] to schedule your appointment. You are required to bring your proof of vaccine card * Telephone Encounter - Gautam Davidson - 05/13/2021 9:57 AM EDT Jeannie needs a preop and would really like to follow up with you on it. She said surgery is either the first or second week of May but wasnt sure on the date. She is having it at [facility] with neurology. Please advise documented in this encounter Plan of Treatment Not on file documented as of this encounter Visit Diagnoses Not on filedocumented in this encounter Care Teams Prepress Supervisor Relationship Specialty Start Date End Date Hoang Castellanos APRN [address] [place] [address] PCP - General Family Medicine 03/12/20 documented as of this encounter
--- OUTSIDE RECORDS SUMMARY | 2024-08-07 14:08 | XMS_ITS | Encounter Summary ---
Author Organization [facility] [place] [address] Care Team Providers Care Pilot Steam Yacht Name Role Phone Hoang Castellanos APRN Primary Care Provider Reason for Visit * Reason Comments Medication Refill Encounter Details Date Type Department Care Team (Late st Contact Info) Description 04/23/2021 Refill Primary Care at [facility] [address] [place] [phone] Hoang Castellanos APRN [address] [facility] [place] [address] Social History Tobacco Use Types Packs/Day Years [...] Notes * [facility] En[facility] 2:31 PM EDT Advair [...] on filedocumented in this encounter Care Teams Pilot Steam Yacht Relationship Specialty Start Date End Date Hoang Castellanos APRN [address] [place] [address] PCP - General Family Medicine 03/12/20 documented as of this encounter
--- OUTSIDE RECORDS SUMMARY | 2024-08-07 14:08 | XMS_ITS | Encounter Summary ---
Author Organization [facility] [place] [address] Care Team Providers Care Pan Operator Name Role Phone Hoang Castellanos APRN Primary Care Provider Reason for Referral * Diagnostic Test (Routine) - Closed Specialty Diagnoses / Procedures Referred By Contac t Referred To Contact Radiology Diagnoses Myelopathy Procedures MRI Thoracic Spine wo Contrast (Generic) Gurjit Bass MD [facility] DR NEUROLOGY DEPT [address] [facility] Rad Mri [address] [place] [address] Referral ID Status Reason Start Date Expiration Date V isits Requested Visits Authorized [id number] Closed Specialty Service Requested 03/26/2021 09/23/2022 1 1 Reason for Visit * Diagnostic Test (Routine) - Closed Specialty Diagnoses / Procedures Referred By Contac t Referred To Contact Radiology Diagnoses Myelopathy Procedures MRI Thoracic Spine wo Contrast (Generic) Gurjit Bass MD [facility] NEUROLOGY DEPT [address] [facility] Rad Mri [address] [place] [address] Referral ID Status Reason Start Date Expiration Date V isipamela Requested Visits Authorized [id number] Closed Specialty Service Requested 03/26/2021 09/23/2022 1 1 Encounter Details Date Type Department Care Team (Latest Contact Info) Description 06/24/2021 1:30 PM EST - 06/24/2021 11:59 PM EST Hospital Encounter Radiology MRI at [facility] [address] [place] [address] Gurjit Bass MD 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 ? Narrative [...] questions please contactthe health manager critical care unit that requested your imaging first. Gurjit Bass MD IMG MRI ORDERABLES documented in this encounter Visit Diagnoses Diagnosis Myelopathy Unspecified disease of spinal cord documented in this encounter Care Teams Pan Operator Relationship Specialty Start Date End Date Hoang Castellanos, SAM [address] [facility] [address] PCP - General Family Medicine 03/12/20 documented as of this encounter
--- OUTSIDE RECORDS SUMMARY | 2024-08-07 14:08 | XMS_ITS | Encounter Summary ---
[place] [address] Care Team Providers Care Reimbursement Representative Name Role Phone Hoang Castellanos APRN Primary Care Provider Reason for Referral * Psychiatric (Urgent) - Closed Specialty Diagnoses / Procedures Referred By Contac t Referred To Contact Psychiatry Diagnoses Syncope, unspecified syncope type Cornelio Rosado MD [facility] [place] [address] [facility] Psychiatry [address] [place] [address] Referral ID Status Reason Start Date Expiration Date V isits Requested Visits Authorized [id number] Closed Consult, Test & Treat 08/07/2021 08/07/2022 1 1 Reason for Visit * Reason Comments Chest Pain Encounter Details Date Type Department Care Team (Late st Contact Info) Description 08/07/2021 10:46 AM EST - 08/07/2021 4:16 PM EST Emergency [place] [phone] Xander Reese MD [facility] [place] [address] Syncope, unspecified syncope type Discharge [...] APD 12/22/2021 9:45 AM Michael Espinoza MD [facility] ENDO [facility] PCP: Hoang Castellanos APRN at [phone] Your Doctor(s) at [facility]: Xander Reese MD - Attending physician [...] Sustained Release 24 hrIndications:Coronary artery disease involving [place] coronary artery of [place] heart without angina pectoris TAKE ONE [...] 09/28/2021 Ventolin HFA 90 mcg/actuation HFA Aerosol InhalerIndications:Senior Underwriter randell obstructive pulmonary disease, unspecified COPD type [...] [place] MSW - 08/07/2021 3:17 PM EST ROUNDHOUSE WORKER went to speak with pt. Jeannie reported [...] feeling some relief being in ADM room. ROUNDHOUSE WORKER assisted pt in called her outpatient SARIKA Miller ([phone]). SARIKA Miller stated she was working remote today and would not be able to come get Jeannie to bring her home. She did say she would speak to her coworkers/supervisor denture department to determine if someone could provide transportation for the pt to get home. ROUNDHOUSE WORKER spoke to pt who reported that she had been experiencing a pinched nerve in her neck which has affected her arm and leg on the left side. She discussed having PTSD and 'mental health' problems, but did not go into detail. SARIKA Miller suggested a psych eval, which pt was open to. ROUNDHOUSE WORKER made medical team aware of pt's/CM concerns. ROUNDHOUSE WORKER also alerted team that pt was very hungry. RN to bring pt food. SARIKA Miller called ROUNDHOUSE WORKER, who handed phone to . stated he could put in emergency psych consult. SARIKA stated she could have a ride for pt if she was able to discharge by 4pm. ROUNDHOUSE WORKER inquired with team who will put discharge orders in now. ROUNDHOUSE WORKER confirmed with Angela that worker Roberto Carlos would pick pt up from the ED entrance at 4pm today. ROUNDHOUSE WORKER will relay that to pt and medical team. Nohemi Washington ROUNDHOUSE WORKER Emergency Department Rough Carpenter [phone] Pager: [phone] documented in this encounter ED Notes * Cornelio Rosado MD - 08/07/2021 11:29 AM EST ED PROVIDER NOTE Patient: Jeannie Rico Age (): 61 y.o. (1960) SUBJECTIVE CC: Chief Complaint Patient presents with ??? Chest Pain HPI: Jeannie Rico is a 61 y.o. female with PMH significant for asthma, diabetes, hypertension, hyperlipidemia, prior SD (PCI to prox and mid LAD, 2012) [...] have questions please contact the health rn care manager that requested your imaging first. - I have reviewed the EKG, which is significant for: afib ASSESSMENT & PLAN MDM: Jeannie Rico is a 61 y.o. female with past medical history of prior SD as well as cervical myelopathy who presents after a syncopal event. In the emergency department she was hemodynamically stable (chronically bradycardic) with appropriate mentation. Physical exam unremarkable. Bedside ultrasound demonstrates wall motion normalities which are not favored to be new given prior SD and nonischemic EKG. Patient did not have a positive delta troponin. Rest of lab work including BMP, CBC and headCT unremarkable. Patient's social secretary reached out to [facility] ED social work for psychiatric evaluation given recent stress. Outside social secretary describes increased distress due to housing insecurity as well as pending surgery for cervical process. In the emergency department she denied SI or HI and was mentating a ppropriately and preferred urgent referral to outpatient psychiatry. This MD spoke with outpatient bakery team member and confirmed no statements of SI or HI. Urgent referral to psychiatry placed. PLAN: Patient will be discharged home, urgent referral to psychiatry placed Cornelio Rosado MD Resident 08/07/21 6114 Associated attestation - Xander Reese MD - [...] received message from social work that her bakery team member was in touch with her and concern. We asked the patient who described having increasing PTSD and being in the trauma bay on her initial presentation but didnot feel overtly homicidal or suicidal. Dr. Rosado also discussed the case with her outpatient bakery team member. Assessment: Syncope without findings of intracranial hemorrhage, [...] EST) Troponin-T <0.01 0.00 - 0.00 ng/mL [facility] Comment: The 99th percentile [...] ischemia ?? New or presumed new significant GT-dsfijal-R wave (ST-T) changes or new left bundle [...] additional sample may be indicated. Reference: Third [place] Definition of Myocardial Infarction. Journal of the [place] College [employer]iology 2012;60:1581-98 Blood 08/07/2021 1:49 PM EST 08/07/2021 2:01 PM EST Narrative Resulting Agency Comment Spec In Lab Xander Reese MD CHEMISTRY ORDERABL ES [facility] [place] [address] * CT Head wo Contrast (Generic) (08/07/2021 [...] have questions please contact the health rn care manager that requested your imaging first. ? Narrative [...] who have questions please contactthe health rn care manager that requested your imaging first. Xander Reese MD IMG CT ORDERABLES * Blue Tube HOLD (08/07/2021 11:00 AM EST) Pathologist [facility] Blue Hold Sample in lab. [facility] Blood Venous Draw / Unknown 08/07/2021 11:00 AM EST 08/07/2021 11:14 AM EST Cornelio Rosado MD HEMATOLOGY OR DERABLES [facility] [place] [address] * Differential, Automated (08/07/2021 11:00 AM EST) Pathologist [facility] Neutrophil % 62.7 % [facility] Neutrophil Absolute 4.25 1.70 - 6.10 x10(3)/[facility] Lymph % 26.0 % [facility] Lymphocytes Abs 1.8 0.9 - 3.2 x10(3)/[facility] Monocyte % 8.8 % [facility] Monocyte Abs 0.6 0.3 - 0.9 x10(3)/[facility] Eos % 0.9 % [facility] Eosinophils Abs 0.1 0.0 - 0.4 x10(3)/[facility] Basophil % 1.2 % [facility] Baso Absolute 0.1 0.0 - 0.1 x10(3)/[facility] Immature Gran % 0.40 % [facility] Comment: Immature granulocytes(IG's)percentage and absolute count will include metamyelocytes, myelocytes, and promyelocytes. Blood smears from CBCs yielding IG's will be scanned manually for concordance. If this scan disagrees with the automated IG or if promyelocytes are noted, a manual differential will be performed. Immature Gran Absolute 0.03 0.00 - 0.04 x10(3)/mcL [facility] Blood 08/07/2021 11:0 0 AM EST 08/07/2021 11:14 AM EST Narrative Resulting Agency Comment Spec In Lab Cornelio Rosado MD HEMATOLOGY OR DERABLES Performing Organization Address City/State/[facility] Co de Phone Number [facility] [place] [address] * (ABNORMAL) Hemogram (08/07/2021 11:00 AM EST) White Blood Cell 6.8 4.0 - 9.5 x10(3)/[facility] Red Blood Cell 4.85 4.00 - 5.21 x10(6)/[facility] Hemoglobin 14.7 11.7 - 15.5 g/dL [facility] Hematocrit 45.7 35.7 - 45.8 % [facility] Mean Cell Volume 94.2 82.6 - 94.4 fL [facility] Mean Cell Hemoglobin 30.3 27.1 - 32.0 pg [facility] Mean Cell Hemoglobin Concentration 32.2 31.7 - 35.0 g/dL [facility] Platelet 215 145 - 357 x10(3)/[facility] RDW Standard Deviation 46.5(H) 37.0 - 46.0 [facility] RDW coefficient of variation 13.2 11.5 - 14.1 % [facility] Mean Platelet Volume 10.1 7.6 - 12.9 [facility] NRBC% auto 0.0 % [facility] NRBC Absolute 0.000 0.000 - 0.000 x10(3)/ L [facility] Blood 08/07/2021 11:0 0 AM EST 08/07/2021 11:14 AM EST Narrative Resulting Agency Comment Spec In Lab Cornelio Rosado MD HEMATOLOGY OR DERABLES [facility] [place] [address] * (ABNORMAL) Basic Metabolic Panel (non-fasting) (08/07/2021 11:00 AM EST) Glucose 93 65 - 199 mg/dL [facility] Comment:Diabetes: >=200 mg/d L plus symptoms Blood Urea Nitrogen 19(H) 8 - 18 mg/dL [facility] Creatinine 0.91 0.70 - 1.20 mg/dL [facility] Sodium 138 135 - 145 mmol/L [facility] Potassium 4.4 3.5 - 5.0 mmol/L [facility] Comment: Please note: ??Patients with WBC >100,000 may have falsely elevated Potassium levels. ??For accurate Potassium quantification in these patients send serum separator tube (gold top) for subsequent determinations. ??Contact the Clinical Chemistry Laboratory if there are any questions. Chloride 100 98 - 107 mmol/L [facility] Carbon Dioxide 28 22 - 31 mmol/L [facility] Anion Gap 10 5 - 15 mmol/L [facility] Calcium 10.1 8.5 - 10.5 mg/dL [facility] Est Glomerular Filtration Rate 68 >=60 mL/min/1. 73 m?? [facility] Comment: This patient? s [...] MD CHEMISTRY ORDERABL ES Performing Organization Address [facility] Co de Phone Number [facility] [place] [address] * Troponin (08/07/2021 11:00 AM EST) Troponin-T <0.01 0.00 - 0.00 ng/mL [facility] Comment: The 99th percentile [...] ischemia ?? New or presumed new significant NA-uvvpkvj-F wave (ST-T) changes or new left bundle [...] additional sample may be indicated. Reference: Third [place] Definition of Myocardial Infarction. Journal of the [place] College of Cardiology 2012;60:1581-98 Blood 08/07/2021 11:0 0 AM EST 08/07/2021 11:14 AM EST Narrative Resulting Agency Comment Spec In Lab Xander Reese MD CHEMISTRY ORDERABL ES Performing Organization Address City/[facility]/ZIP Co de Phone Number [facility] [place] [address] * EKG 12 Lead (08/07/2021 10:47 AM EST) Ventricular rate 46 BPM MUSE SYSTEM Atrial Rate 46 BPM MUSE SYSTEM P-R Interval 126 ms MUSE SYSTEM QRS Duration 76 ms MUSE SYSTEM Q-T Interval 448 ms MUSE SYSTEM QTC Calculated (Bezet) 392 ms MUSE SYSTEM Calculated P [place] 43 degrees MUSE SYSTEM Calculated R [place] 62 degrees MUSE SYSTEM Calculated T [place] 42 degrees MUSE SYSTEM INTERPRETATION Sinus bradycardia Otherwise normal ECG When compared with ECG of 08-SEP-2018 19:26, No significant change was found I personally reviewed the tracing and edited the fellows interpretation Confirmed by fellow Trenton Cloud ([id number]) on 08/08/2021 12:29:27 PM Confirmed by Tabitha Aguilar ([id number]) on 08/08/2021 1:45:23 PM MUSE SYSTEM 08/07/2021 10:4 7 AM EST 08/08/2021 1:45 PM EST Xander Reese MD ECG ORDERABLES MUSE SYSTEM documented in this encounter Visit Diagnoses Diagnosis Syncope, unspecified syncope type documented in this encounter Care Teams Reimbursement Representative Relationship Specialty Start Date End Date Hoang Castellanos, CREW LEADER GLUING [address] [place] [address] PCP - General Family Medicine 03/12/20 documented as of this encounter
--- OUTSIDE RECORDS SUMMARY | 2024-08-07 14:08 | XMS_ITS | Encounter Summary ---
[place] [address] Care Team Providers Care Dividing Machine Operator Helper Name Role Phone Hoang Castellanos APRN Primary Care Provider Reason for Referral * Consultation (Routine) - Closed Specialty Diagnoses / Procedures Referred By Contac t Referred To Contact Primary Care Diagnoses Financial difficulties Hoang Castellanos APRN [address] [place] [address] Flavia Zamora Referral ID Status Reason Start Date Expiration Date V isits Requested Visits Authorized [id number] Closed Consult, Test & Treat 2021 2022 12 12 * Consultation (Routine) - Closed Specialty Diagnoses / Procedures Referred By Contac t Referred To Contact Endocrinology Diagnoses Osteoporosis, unspecified osteoporosis type, unspecified pathological fracture presence Hoang Castellanos APRN [address] [place] [address] [facility] Endocrinology [address] [place] [phone] Referral ID Status Reason Start Date Expiration Date V isits Requested Visits Authorized [id number] Closed Specialty Service Requested 2021 2022 12 12 Reason for Visit * Reason Comments Pre-op Exam Encounter Details Date Type Department Care Team (Latest Contact Info) Description 2021 9:30 AM EDT Office Visit Primary Care at [facility] [address] [place] [address] Hoang Castellanos, SAM [address] [place] [address] Preop examination; Cervicalgia; Preop cardiovascular exam; Health [...] this encounter Progress Notes * Hoang Castellanos, SPLITTING MACHINE OPERATOR - 2021 9:30 AM EDT Subjective: Patient [...] Directives - Y ?? Durable Power of Felt Carbonizer for Health Care - [] No; [x] [...] BIOPSY performed by Ken Sanders MD at [facility] ENDOSCOPY ??? PRO UPPER GI ENDOSCOPY, BIOPSY N/A 09/19/2018 UPPER GASTROINTESTINAL ENDOSCOPY,WITH BIOPSY SINGLE OR MULTIPLE (WRVU 2.49) performed by Tyron Mercado MD at [facility] ENDOSCOPY ??? TONSILLECTOMY ??? UPPER GI ENDOSCOPY, EXAM 12/04/2010 UPPER GI ENDOSCOPY performed by DEE WRIGHT at [facility] ENDOSCOPY Allergies Allergen Reactions ??? Morphine [...] 30 tablet 1 ??? Miscellaneous Medical Supply [facility] 1 walker on wheels [...] lancets 30 gauge Misc 1 each by [facility].(Non-Drug; Combo Route) route daily. 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 Mouth/Throat: Lips: [place]. Mouth: Mucous membranes are moist. Dentition: Abnormal [...] - Consider Stress Testing if it would jacket changer or would be done otherwise PULMONARY [...] like to do MRI thoracic spine at [facility] instead-will coordinate with [facility] Radiology SW support for lore enrique-she has a field case manager helping her get into assisted living facility RX for Smoking Cessation A total of 45 minutes was spent on the day of the visit for completion of this encounter. (Established patient total visit time: 26282 - 20min, 65507 - 30 min, 32481 - 40 min; New patient total visit times: 34386 - 30 min, 84560 - 45 min, 39785 - 60 min) * Conor Velazquez - [...] Agency Comment Spec In Lab Hoang Castellanos SPLITTING MACHINE OPERATOR CHEMISTRY ORDERABLES [facility] [address] [place] [address] documented in this encounter Visit Diagnoses Diagnosis [...] resources documented in this encounter Care Teams Dividing Machine Operator Helper Relationship Specialty Start Date End Date Hoang Castellanos, SPLITTING MACHINE OPERATOR [address] [place] [address] PCP - General Family Medicine 03/12/20 documented as of this encounter
--- OUTSIDE RECORDS SUMMARY | 2024-08-07 14:08 | XMS_ITS | Encounter Summary ---
Author Organization [facility] [place] [address] Care Team Providers Care Dipper Operator Name Role Phone Hoang Castellanos APRN Primary Care Provider Reason for Visit * Reason Comments Medication Refill Encounter Details Date Type Department Care Team (Late st Contact Info) Description 06/16/2021 Refill Primary Care at [facility] [address] [facility] [phone] Hoang Castellanos APRN [address] [place] [address] Cervicalgia; Chronic pain syndrome Social History Tobacco [...] * Telephone Encounter - Maria D Joshi, [facility] - 06/16/2021 1:29 PM EST Medication [...] syndrome documented in this encounter Care Teams Dipper Operator Relationship Specialty Start Date End Date Hoang Castellanos APRN [address] [place] [address] PCP - General Family Medicine 03/12/20 documented as of this encounter
--- OUTSIDE RECORDS SUMMARY | 2024-08-07 14:08 | XMS_ITS | Encounter Summary ---
[place] [address] Care Team Providers Care Radio Communications Superintendent Name Role Phone Hoang Castellanos APRN Primary Care Provider [phone] Encounter Details Date Type Department Care Team (Late st Contact Info) Description 06/15/2021 Telephone [place] [address] Sheree Escalante Social History Tobacco Use Types [...] on filedocumented in this encounter Care Teams Radio Communications Superintendent Relationship Specialty Start Date End Date Hoang Castellanos, SENIOR CUSTOMER SERVICE REPRESENTATIVE [address] [place] [address] PCP - General Family Medicine 03/12/20 documented as of this encounter
--- OUTSIDE RECORDS SUMMARY | 2024-08-07 14:08 | XMS_ITS | Encounter Summary ---
Author Organization [facility] [place] [address] Care Team Providers Care Medical Record Technician Name Role Phone Hoang Castellanos APRN Primary Care Provider Encounter Details Date Type Department Care Team (Latest Contact Info) Description 06/09/2021 2:00 PM EST TH Visit (TeleHealth) [place] [address] Campos Puente MD [facility] [place] [address] Cervical spondylosis Social History Tobacco Use Types [...] myelopathy documented in this encounter Care Teams Medical Record Technician Relationship Specialty Start Date End Date Hoang Castellanos, WELDING MACHINE OPERATOR HELPER [employer] [address] [place] [address] PCP - General Family Medicine 03/12/20 documented as of this encounter
--- OUTSIDE RECORDS SUMMARY | 2024-08-07 14:08 | XMS_ITS | Encounter Summary ---
Author Organization [facility] [place] [address] Care Team Providers Care Desulfurizer Machine Name Role Phone Hoang Castellanos APRN Primary Care Provider Reason for Visit * Consultation (Routine) - Closed Specialty Diagnoses / Procedures Referred By Contac t Referred To Contact Endocrinology Diagnoses Osteoporosis, unspecified osteoporosis type, unspecified pathological fracture presence Hoang Castellanos APRN [address] [place] [address] [facility] Endocrinology [address] [place] [phone] Referral ID Status Reason Start Date Expiration Date V isits Requested Visits Authorized [id number] Closed Specialty Service Requested 2021 2022 12 12 Encounter Details Date Type Department Care Team (Latest Contact Info) Description 06/22/2021 2:15 PM EST TH Visit (TeleHealth) [place] [address] Michael Espinoza MD [facility] [place] [address] Vitamin D deficiency; Adult osteomalacia [...] BIOPSY performed by Ken Sanders MD at [facility] ENDOSCOPY ??? PRO UPPER GI ENDOSCOPY, BIOPSY N/A 09/19/2018 UPPER GASTROINTESTINAL ENDOSCOPY,WITH BIOPSY SINGLE OR MULTIPLE (WRVU 2.49) performed by Tyron Mercado MD at [facility] ENDOSCOPY ??? TONSILLECTOMY ??? UPPER GI ENDOSCOPY, EXAM 12/04/2010 UPPER GI ENDOSCOPY performed by DEE WRIGHT at [facility] ENDOSCOPY Social history Social History Socioeconomic History [...] BIOPSY performed by Ken Sanders MD at [facility] ENDOSCOPY ??? PRO UPPER GI ENDOSCOPY, BIOPSY N/A 09/19/2018 UPPER GASTROINTESTINAL ENDOSCOPY,WITH BIOPSY SINGLE OR MULTIPLE (WRVU 2.49) performed by Tyron Mercado MD at [facility] ENDOSCOPY ??? TONSILLECTOMY ??? UPPER GI ENDOSCOPY, EXAM 12/04/2010 UPPER GI ENDOSCOPY performed by DEE WRIGHT at [facility] ENDOSCOPY Current Outpatient Medications: ??? tiZANidine (Zanaflex) [...] tablet, Rfl: 1 ??? Miscellaneous Medical Supply [facility] 1 walker on wheels with seat, Disp: [...] ??? 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
--- OUTSIDE RECORDS SUMMARY | 2024-08-07 14:08 | XMS_ITS | Encounter Summary ---
Author Organization [facility] [address] Care Team Providers Care Ignition Expert Name Role Phone Hoang Castellanos APRN Primary Care Provider Encounter Details Date Type Department Care Team (Latest Contact Info) Description 04/30/2021 11:20 AM EDT Office Visit Cardiology at [address] [address] Chase Talbot MD Dizziness; Hyperlipidemia, unspecified hyperlipidemia type; Bilateral leg edema; Obstructive sleep apnea (adult) (pediatric); Smokes cigarettes; Coronary artery disease involving resighini coronary artery of resighini heart without angina pectoris Social History Tobacco [...] from the original note were not included. [facility] [place] [address] CARDIOLOGY OUTPATIENT CLINIC VISIT [facility] Jeannie Rico 04/30/2021 Referring Providers: Hoang [...] BIOPSY performed by Ken Sanders MD at [facility] ENDOSCOPY ??? PRO UPPER GI ENDOSCOPY, BIOPSY N/A 09/19/2018 UPPER GASTROINTESTINAL ENDOSCOPY,WITH BIOPSY SINGLE OR MULTIPLE (WRVU 2.49) performed by Tyron Mercado MD at [facility] ENDOSCOPY ??? TONSILLECTOMY ??? UPPER GI ENDOSCOPY, EXAM 12/04/2010 UPPER GI ENDOSCOPY performed by DEE WRIGHT at [facility] ENDOSCOPY SOCIAL HISTORY: reports that she has [...] tablet 1 ??? Miscellaneous Medical Supply [facility] 1 walker on wheels with seat 1 each 0 ??? ibuprofen (Advil;Motrin) 800 mg Tablet Take 1 tablet by mouth every 8 hours as needed for Pain.90 tablet 5 ??? sertraline (ZOLOFT) 100 mg Tablet Take 2 tablets by mouth 2 times daily. ??? multivitamin (THERAGRAN) Tablet Take 1 tablet by mouth daily. ??? lancets 30 gauge Misc 1 each by [facility]Non-Drug; Combo Route) route daily. 100 each 3 [...] (pediatric) Smokes cigarettes Coronary artery disease involving resighini coronary artery of resighini heart without angina pectoris 1. Preoperative risk [...] Sincerely, Dr. Chase Talbot MD [facility] Interventional Cardiology 04/30/2021 CC: Hoang Castellanos APRN documented in this encounter Plan of Treatment Not on file documented as of this encounter Visit Diagnoses Diagnosis Dizziness Dizziness and giddiness Hyperlipidemia, unspecified hyperlipidemia type Bilateral leg edema Edema Obstructive sleep apnea (adult) (pediatric) Smokes cigarettes Tobacco use disorder Coronary artery disease involving resighini coronary artery of resighini heart without angina pectoris documented in this encounter Care Teams Ignition Expert Relationship Specialty Start Date End Date Hoang Castellanos APRN [address] [place] [address] PCP - General Family Medicine 03/12/20 documented as of this encounter
--- OUTSIDE RECORDS SUMMARY | 2024-08-07 14:08 | XMS_ITS | Encounter Summary ---
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 Procedures NM Pharmacologic Stress and Rest Myocardial Perfusion Dustin Haynes, [facility] [address] [place] [address] Referral ID Status Reason Start Date Expiration Date V isits Requested Visits Authorized [id number] Closed Specialty Service Requested 02/16/2021 07/24/2021 1 1 Encounter Details Date Type Department Care Team (Late st Contact Info) Description 04/15/2021 10:32 AM EDT Hospital Encounter [place] [address] Benito Reed MD [facility] [place] [address] Discharge Disposition: Home Social History [...] Sustained Release 24 hrIndications: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 ? Electronically signed by: Matthew Morrison MD, [facility] ([phone]), at 04/15/2021 3:42 PM Narrative 04/15/2021 3:42 [...] CT FINDINGS: Coronary artery calcifications. Procedure Note Mathtew Morrison MD - 04/15/2021 EXAMINATION: NM PHARMACOLOGIC [...] patients who have questions please contactthe health pediatric critical care nurse that requested your imaging first. Electronically signed by: Matthew Morrison MD, [facility]([phone]), at 04/15/2021 3:42 PM Benito Reed MD [...] who have questions please contact the health pediatric critical care nurse that requested your imaging first. ? Electronically signed by: Matthew Morrison MD, [facility] ([phone]), at 04/15/2021 3:42 PM Narrative 04/15/2021 3:42 [...] patients who have questions please contactthe health pediatric critical care nurse that requested your imaging first. Electronically signed by: Matthew Morrison MD, [facility]([phone]), at 04/15/2021 3:42 PM Benito Reed MD IMG NM ORDERABL ES documented in this encounter Visit Diagnoses Not on filedocumented in this encounter Care Teams Build Engineer Relationship Specialty Start Date End Date Hoang Castellanos APRN [address] [place] [address] PCP - General Family Medicine 03/12/20 documented as of this encounter
--- OUTSIDE RECORDS SUMMARY | 2024-08-07 14:08 | XMS_ITS | Encounter Summary ---
[place] [address] Care Team Providers Care Conference Services Coordinator Name Role Phone Hoang Castellanos APRN Primary Care Provider Reason for Referral * Diagnostic Test (Routine) - Closed Specialty Diagnoses / Procedures Referred By Contac t Referred To Contact Radiology Diagnoses Coronary artery disease involving napaimute coronary artery of napaimute heart without angina pectoris Procedures NM Pharmacologic Stress CT Component Dustin Haynes [facility] [place] [address] [place] [address] Referral ID Status Reason Start Date Expiration Date V isits Requested Visits Authorized [id number] Closed Specialty Service Requested 02/16/2021 07/24/2021 1 1 Reason for Visit * Diagnostic Test (Routine) - Closed Specialty Diagnoses / Procedures Referred By Contdavide t Referred To Contact Radiology Diagnoses Coronary artery disease involving napaimute coronary artery of napaimute heart without angina pectoris Procedures NM Pharmacologic Stress CT Component Dustin Haynes [facility] [place] [address] [place] [address] Referral ID Status Reason Start Date Expiration Date V isits Requested Visits Authorized [id number] Closed Specialty Service Requested 02/16/2021 07/24/2021 1 1 Encounter Details Date Type Department Care Team (Late st Contact Info) Description 04/15/2021 10:33 AM EDT - 04/15/2021 11:59 PM EDT Hospital Encounter [place] [address] Benito Reed MD [facility] [place] [address] Coronary artery disease involving napaimute coronary artery of napaimute heart without angina pectoris Discharge Disposition: Home [...] Sustained Release 24 hrIndications:Coronary artery disease involving napaimute coronary artery of napaimute heart without angina pectoris TAKE ONE (1) [...] 09/28/2021 Ventolin HFA 90 mcg/actuation HFA Aerosol InhalerIndications: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 ? Electronically signed by: Matthew Morrison MD, [facility] ([phone]), at 04/15/2021 3:42 PM Narrative 04/15/2021 3:42 [...] who have questions please contactthe health care advocate that requested your imaging first. Electronically signed by: Matthew Morrison MD, [facility]([phone]), at 04/15/2021 3:42 PM Benito Reed MD IMG NM ORDERABL ES documented in this encounter Visit Diagnoses Diagnosis Coronary artery disease involving napaimute coronary artery of napaimute heart without angina pectoris documented in this encounter Care Teams Conference Services Coordinator Relationship Specialty Start Date End Date Hoang Castellanos, SAM [address] [place] [address] PCP - General Family Medicine 03/12/20 documented as of this encounter
--- OUTSIDE RECORDS SUMMARY | 2024-08-07 14:08 | XMS_ITS | Encounter Summary ---
[place] [address] Care Team Providers Care Wooling Machine Operator Name Role Phone Hoang Castellanos APRN Primary Care Provider Encounter Details Date Type Department Care Team (Late st Contact Info) Description 06/23/2021 10:30 AM EST Clinical [place] [id number] Social History Tobacco Use Types Packs/Day Years [...] in the past. Pt is here with Editor Department Angela. Pre-operative instruction booklet reviewed. Patient verbalizes [...] on filedocumented in this encounter Care Teams Wooling Machine Operator Relationship Specialty Start Date End Date Hoang Castellanos, SAM [address] [place] [address] PCP - General Family Medicine 03/12/20 documented as of this encounter
--- OUTSIDE RECORDS SUMMARY | 2024-08-07 14:08 | XMS_ITS | Encounter Summary ---
Author Organization [facility] Address [facility] [place] [address] Care Team Providers Care Executive Assistant Name Role Phone Hoang Castellanos APRN Primary Care Provider Encounter Details Date Type Department Care Team (Late st Contact Info) Description 06/06/2022 Plan of Care Documentation [facility] Choices for Care [address] [place] [phone] Social History Tobacco Use Types Packs/Day [...] on filedocumented in this encounter Care Teams Executive Assistant Relationship Specialty Start Date End Date Hoang Castellanos APRN [address] [place] [address] PCP - General Family Medicine 03/12/20 documented as of this encounter
--- OUTSIDE RECORDS SUMMARY | 2024-08-07 14:08 | XMS_ITS | Encounter Summary ---
Author Organization [facility] [place] [address] Care Team Providers Care Financial Engineer Name Role Phone Hoang Castellanos APRN Primary Care Provider [phone] Encounter Details Date Type Department Care Team (Late st Contact Info) Description 2021 Telephone Primary Care at [facility] [place] [phone] Jeannie Luciano, RN Social History Tobacco Use [...] EDT Message received from Porfirio pharmacist at [facility] re: rx sent for nicotine gum/lozenges. [...] disorder documented in this encounter Care Teams Financial Engineer Relationship Specialty Start Date End Date Hoang Castellanos APRN [address] [place] [address] PCP - General Family Medicine 03/12/20 documented as of this encounter
--- OUTSIDE RECORDS SUMMARY | 2024-08-07 14:08 | XMS_ITS | Encounter Summary ---
[place] [address] Care Team Providers Care Heat Sealing Machine Operator Name Role Phone Hoang Castellanos APRN Primary Care Provider [phone] Encounter Details Date Type Department Care Team (Late st Contact Info) Description 06/22/2021 Telephone [place] [address] Sheree Escalante Social History Tobacco Use Types [...] on filedocumented in this encounter Care Teams Heat Sealing Machine Operator Relationship Specialty Start Date End Date Hoang Castellanos APRN [address] [place] [address] PCP - General Family Medicine 03/12/20 documented as of this encounter
--- OUTSIDE RECORDS SUMMARY | 2024-08-07 14:08 | XMS_ITS | Encounter Summary ---
Author Organization [facility] Address [facility] [place] [address] Care Team Providers Care Doctor Of Nurse Anesthesia Name Role Phone Hoang Castellanos APRN Primary Care Provider [phone] Encounter Details Date Type Department Care Team (Late st Contact Info) Description 05/28/2021 Notes Only Primary Care at [facility] [address] [place] [phone] Flavia Zamora Social History Tobacco Use Types [...] qualifies to receive a $20 voucher to [facility] FIRE[facility]. documented in this encounter Plan of Treatment Not on file documented as of this encounter Visit Diagnoses Not on filedocumented in this encounter Care Teams Doctor Of Nurse Anesthesia Relationship Specialty Start Date End Date Hoang Castellanos APRN [address] [place] [address] PCP - General Family Medicine 03/12/20 documented as of this encounter
--- OUTSIDE RECORDS SUMMARY | 2024-08-07 14:08 | XMS_ITS | Encounter Summary ---
Author Organization [facility] Address [facility] [place] [address] Care Team Providers Care Nursery Supervisor Name Role Phone Hoang Castellanos APRN Primary Care Provider Encounter Details Date Type Department Care Team (Late st Contact Info) Description 06/24/2021 Home Care Visit [facility] Choices for Care [address] [place] [phone] Farrah Jama [facility] [place] Social History Tobacco Use Types Packs/Day [...] on filedocumented in this encounter Care Teams Nursery Supervisor Relationship Specialty Start Date End Date Hoang Castellanos APRN [address] [place] [address] PCP - General Family Medicine 03/12/20 documented as of this encounter
--- OUTSIDE RECORDS SUMMARY | 2024-08-07 14:08 | XMS_ITS | Encounter Summary ---
[place] [address] Care Team Providers Care Grazing Aide Name Role Phone Hoang Castellanos APRN Primary Care Provider Encounter Details Date Type Department Care Team (Late st Contact Info) Description 06/23/2021 10:00 AM EST [place] [phone] Social History Tobacco Use Types Packs/Day Years [...] on filedocumented in this encounter Care Teams Grazing Aide Relationship Specialty Start Date End Date Hoang Castellanos, SAM [address] [place] [address] PCP - General Family Medicine 03/12/20 documented as of this encounter
--- OUTSIDE RECORDS SUMMARY | 2024-08-07 14:08 | XMS_ITS | Encounter Summary ---
[place] [address] Care Team Providers Care Quiller Runner Name Role Phone Hoang Castellanos APRN Primary Care Provider Encounter Details Date Type Department Care Team (Late st Contact Info) Description 05/26/2021 Tele[place] [address] Hiral Jose Social History Tobacco Use Types [...] on filedocumented in this encounter Care Teams Quiller Runner Relationship Specialty Start Date End Date Hoang Castellanos APRN [address] [place] [address] PCP - General Family Medicine 03/12/20 documented as of this encounter
--- OUTSIDE RECORDS SUMMARY | 2024-08-07 14:08 | XMS_ITS | Encounter Summary ---
Author Organization [facility] [place] [address] Care Team Providers Care Vacuum Extractor Operator Name Role Phone Hoang Castellanos APRN Primary Care Provider Encounter Details Date Type Department Care Team (Late st Contact Info) Description 08/04/2021 9:00 AM EST TH Visit (TeleHealth) [place] [address] Gurjit Bass MD [facility] [place] [address] Myelopathy Social History Tobacco Use Types Packs/Day [...] Gait ataxia [facility]: [facility] [...] me, as I had followed her from [id number]. Has a complex medical and neurological history [...] chemistry and liver profile, thyroid function tests, Z91zjpse, TSH level, CK and hemoglobin A1c and [...] RS Psychiatry ??? 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 Her sister Who lives in [place] advises her regarding medical decisions Review of [...] 30 tablet 1 ??? Miscellaneous Medical Supply [facility] 1 walker on wheels [...] lancets 30 gauge Misc 1 each by [facility]Non-Drug; Combo Route) route daily. [...] necessary Gurjit Bass MD Department [place] [address] Pager: [phone], #[phone] Email: [email or web address] CC: Hoang Baltazar MD documented in this encounter Plan of Treatment Not on file documented as of this encounter Visit Diagnoses Diagnosis Myelopathy Unspecified disease of spinal cord documented in this encounter Care Teams Vacuum Extractor Operator Relationship Specialty Start Date End Date Hoang Castelalnos APRN [address] [place] [address] PCP - General Family Medicine 03/12/20 documented as of this encounter
--- OUTSIDE RECORDS SUMMARY | 2024-08-07 14:08 | XMS_ITS | Encounter Summary ---
[place] [address] Care Team Providers Care Loom Stop Checker Name Role Phone Hoang Castellanos APRN Primary Care Provider Encounter Details Date Type Department Care Team (Late st Contact Info) Description 06/08/2021 Telephone [place] [address] Sheree Escalante Social History Tobacco Use Types [...] EST Sheree Escalante, [place] [address] [email or web address] HPI: Jeannie Rico is a 61 [...] BIOPSY performed by Ken Sanders MD at [facility] ENDOSCOPY ??? PRO UPPER GI ENDOSCOPY, BIOPSY N/A 09/19/2018 UPPER GASTROINTESTINAL ENDOSCOPY,WITH BIOPSY SINGLE OR MULTIPLE (WRVU 2.49) performed by Tyron Mercado MD at [facility] ENDOSCOPY ??? TONSILLECTOMY ??? UPPER GI ENDOSCOPY, EXAM 12/04/2010 UPPER GI ENDOSCOPY performed by DEE WRIGHT at [facility] ENDOSCOPY Current Outpatient Medications on File [...] in places where it is forbidden? (ex. anabaptism) No Yes 0 3. Which cigarette would [...] number of lozenges to be used in [facility] is 20. Most people who use the [...] The patient has been provided with a [facility] Smoking Cessation packet. The patient has my [...] interested. Sheree Escalante 06/08/21 Tobacco Treatment Program [facility] documented in this encounter Plan of Treatment Not on file documented as of this encounter Visit Diagnoses Not on filedocumented in this encounter Care Teams Loom Stop Checker Relationship Specialty Start Date End Date Hoang Castellanos APRN [address] [place] [address] PCP - General Family Medicine 03/12/20 documented as of this encounter
--- OUTSIDE RECORDS SUMMARY | 2024-08-07 14:08 | XMS_ITS | Encounter Summary ---
Author Organization [facility] Address [facility] [place] [address] Care Team Providers Care Database Marketing Analyst Name Role Phone Hoang Castellanos APRN Primary Care Provider Reason for Visit * Diagnostic Test (Routine) - Closed Specialty Diagnoses / Procedures Referred By Contdavide t Referred To Contact Radiology Diagnoses Age-related osteoporosis without current pathological fracture Procedures DXA Central Spine, Hip, and/or Whole Body (Generic) Hoang Castellanos APRN [address] [facility] [place] [address] [facility] Rad Xray [address] [place] [id number] Referral ID Status Reason Start Date Expiration Date V isits Requested Visits Authorized [id number] Closed Specialty Service Requested 03/23/2021 09/21/2022 1 1 Encounter Details Date Type Department Care Team (Latest Contact Info) Description 05/26/2021 9:30 AM EDT Ancillary Procedure Radiology D[facility] at [facility] at [address] [address] Hoang Castellanos APRN [address] [place] [address] Age-related osteoporosis without current pathological [...] BMD measurements and plots are available in SwypeShield under the imaging tab. Paper copies will be sent to providers without SwypeShield access. If you have received this report without the data sheet and do not have access to SwypeShield, please contact [facility] at [phone]. Thank you for letting us participate in the care of this patient. ??If you are a health care provider and have any questions regarding this report, please contact the number below. ??For patients who have questions please contact the health healthcare network pricing consultant that requested your imaging first. ? Electronically signed by: Hong Catherine MD, [facility] ([phone]), at 05/26/2021 1:03 PM Narrative 05/26/2021 1:03 [...] BMD measurements and plots are available in SwypeShieldunder the imaging tab. Paper copies will be sent to providers without SwypeShield access.If you have received this report without the data sheet and do not haveaccess to E-, please contact Radiology Imaging Center at [phone]. Thank you for letting us participate in the care of this patient. If youare a health care provider and have any questions regarding this report,please contact the number below. For patients who have questions please contactthe health healthcare network pricing consultant that requested your imaging first. Electronically signed by: Hong Catherine MD, [facility]([phone]), at 05/26/2021 1:03 PM Hoang Castellanos APRN IMG DEXA ORDERABLES documented in this encounter Visit Diagnoses Diagnosis Age-related osteoporosis without current pathological fracture Senile osteoporosis documented in this encounter Care Teams Database Marketing Analyst Relationship Specialty Start Date End Date Hoang Castellanos, SAM [address] [place] [address] PCP - General Family Medicine 03/12/20 documented as of this encounter
--- OUTSIDE RECORDS SUMMARY | 2024-08-07 14:08 | XMS_ITS | Encounter Summary ---
Author Organization [place] [address] Care Team Providers Care Account Maintenance Representative Name Role Phone Hoang Castellanos APRN Primary Care Provider [phone] Reason for Visit * Reason Comments Medication Refill Encounter Details Date Type Department Care Team (Late st Contact Info) Description 06/05/2021 Refill Primary Care at [facility] [address] [place] [phone] Hoang Castellanos APRN [address] [facility] [place] [address] Social History Tobacco Use Types Packs/Day Years [...] filedocumented in this encounter Care Teams Account Maintenance Representative Relationship Specialty Start Date End Date Hoang Castellanos APRN [address] [place] [address] PCP - General Family Medicine 03/12/20 documented as of this encounter
--- OUTSIDE RECORDS SUMMARY | 2024-08-07 14:08 | XMS_ITS | Encounter Summary ---
[place] [address] Care Team Providers Care Dance Critic Name Role Phone Hoang Castellanso APRN Primary Care Provider Encounter Details Date Type Department Care Team (Latest Contact Info) Description 05/26/2021 10:20 AM EDT Ancillary Procedure Radiology Mammo at the [facility] at [facility] [address] [place] [phone] Hoang Castellanos APRN [address] [place] [address] Breast cancer screening by mammogram Social History [...] mammogram documented in this encounter Care Teams Dance Critic Relationship Specialty Start Date End Date Hoang Castellanos APRN [address] [place] [address] PCP - General Family Medicine 03/12/20 documented as of this encounter
--- OUTSIDE RECORDS SUMMARY | 2024-08-07 14:08 | XMS_ITS | Encounter Summary ---
[place] [address] Care Team Providers Care Health Informatics Advisor Name Role Phone Hoang Castellanos APRN Primary Care Provider Encounter Details Date Type Department Care Team (Late st Contact Info) Description 07/07/2021 [place] [address] Chikis Orourke Social History Tobacco Use Types [...] Caller: Patient Best number to reach caller: [phone] Reason for call: Patient asking for next [...] filedocumented in this encounter Care Teams Health Informatics Advisor Relationship Specialty Start Date End Date Hoang Castellanos, WAN SUPPORT SPECIALIST [address] [place] [address] PCP - General Family Medicine 03/12/20 documented as of this encounter
--- OUTSIDE RECORDS SUMMARY | 2024-08-07 14:09 | XMS_ITS | Encounter Summary ---
Author Organization [facility] [place] [address] Care Team Providers Care Shaft Tender Name Role Phone Hoang Castellanos APRN Primary Care Provider Encounter Details Date Type Department Care Team (Latest Contact Info) Description 02/26/2021 12:05 PM EDT Laboratory Appointment Laboratory at [facility] [address] [place] [phone] Weakness of both lower limbs; Diplopia Social [...] MD HEMATOLOGY ORDERABL ES LABORATORY [address] [place] [address] * (ABNORMAL) Hemogram (02/26/2021 12:14 PM EDT) [...] MD HEMATOLOGY ORDERABL ES LAB[facility]AT[facility] [address] [place] [address] * CK (02/26/2021 12:14 PM EDT) Creatine Kinase 79 0 - 160 unit/L LABORATORY Blood 02/26/2021 12:1 4 PM EDT 02/26/2021 12:26 PM EDT Narrative Resulting Agency Comment Spec In Lab Altagracia Baltazar MD CHEMISTRY ORDERABLE S Performing Organization Address [facility] Co de Phone Number [facility] [address] [place] [address] * Acetylcholine Receptor Ab Binding (02/26/2021 12:14 PM EDT) [facility] Achr Binding Ab (NOVEMBER) 0.00 <=0.02 nmol/L LABORATORY Comment: ADDITIONAL INFORMATION This test was developed and its performance characteristics determined by [facility] in a manner consistent with CLIA requirements. This test has not been cleared or approved by the U.S. Food and Drug Administration. Test Performed by: [place] [address] [place] [facility]: Skinny Reyes M.D. Ph.D.; CLIA# [id number] Blood 02/26/2021 12:1 4 PM EDT 02/26/2021 5:14 PM EDT Narrative Resulting Agency Comment Spec In Lab Altagracia Baltazar MD LAB SEND OUT ORDERA BLES Performing Organization Address [facility] Co de Phone Number [facility] [address] [place] [address] * (ABNORMAL) Basic Metabolic Panel (non-fasting) (02/26/2021 12:14 PM EDT) [facility] Glucose 107 65 - 199 mg/dL LABORATORY [...] [facility] [address] [place] [address] documented in this encounter Visit Diagnoses Diagnosis Weakness of both lower limbs Other musculoskeletal symptoms referable to limbs Diplopia documented in this encounter Care Teams Shaft Tender Relationship Specialty Start Date End Date Hoang Castellanos, PLATFORM MATERIAL HANDLER MANAGER [address] [place] [address] PCP - General Family Medicine 03/12/20 documented as of this encounter
--- OUTSIDE RECORDS SUMMARY | 2024-08-07 14:09 | XMS_ITS | Encounter Summary ---
Author Organization [facility] [place] [address] Care Team Providers Care Loom Technician Name Role Phone Hoang Castellanos APRN Primary Care Provider Reason for Visit * Reason Comments Medication Refill Encounter Details Date Type Department Care Team (Late st Contact Info) Description 04/13/2021 Refill Primary Care at [facility] [address] [place] [phone] Hoang Castellanos APRN [address] [facility] [address] [place] [address] Benign essential hypertension Social History Tobacco Use [...] benign documented in this encounter Care Teams Loom Technician Relationship Specialty Start Date End Date Hoang Castellanos, [employer] [address] [place] [address] PCP - General Family Medicine 03/12/20 documented as of this encounter
--- OUTSIDE RECORDS SUMMARY | 2024-08-07 14:09 | XMS_ITS | Encounter Summary ---
Author Organization [facility] [place] [address] Care Team Providers Care Sizing Sprayer Name Role Phone Hoang Castellanos APRN Primary Care Provider [phone] Reason for Visit * Reason Onset Date Comments TeleHealth 02/03/2021 Encounter Details Date Type Department Care Team (Late st Contact Info) Description 02/03/2021 [place] [address] Altagracia Baltazar MD [facility] NEUROLOGY DEPT [address] TeleHealth Social History Tobacco Use Types Packs/Day [...] on filedocumented in this encounter Care Teams Sizing Sprayer Relationship Specialty Start Date End Date Hoang Castellanos APRN [address] [place] [address] PCP - General Family Medicine 03/12/20 documented as of this encounter
--- OUTSIDE RECORDS SUMMARY | 2024-08-07 14:09 | XMS_ITS | Encounter Summary ---
Author Organization [facility] [place] [address] Care Team Providers Care Control Director Name Role Phone Hoang Castellanos APRN Primary Care Provider [phone] Reason for Visit * Reason Comments Medication Refill Encounter Details Date Type Department Care Team (Late st Contact Info) Description 03/16/2021 Refill Primary Care at [facility] 10 [place] [phone] Hoang Castellanos APRN [address] [facility] [place] [address] B12 deficiency Social History Tobacco Use Types [...] deficiencies documented in this encounter Care Teams Control Director Relationship Specialty Start Date End Date Hoang Castellanos APRN [address] [place] [address] PCP - General Family Medicine 03/12/20 documented as of this encounter
--- OUTSIDE RECORDS SUMMARY | 2024-08-07 14:09 | XMS_ITS | Encounter Summary ---
Author Organization [facility] Address [facility] [place] [address] Care Team Providers Care Clinical Staff Anesthesiologist Name Role Phone Hoang Castellanos APRN Primary Care Provider Reason for Referral * Home Health Care (Routine) - Closed Specialty Diagnoses / Procedures Referred By Contac t Referred To Contact Diagnoses Dizziness Generalized weakness Benign essential hypertension Right leg weakness Ananth Wilson MD [address] [place] [place] [address] Unknown None Referral ID Status Reason Start Date Expiration Date V isits Requested Visits Authorized [id number] Closed Continuity of Care 02/03/2021 08/02/2021 1 1 Encounter Details Date Type Department Care Team (Late st Contact Info) Description 02/03/2021 10:00 AM EDT Office Visit [facility] at [facility] [address] [place] [phone] Ananth Wilson MD [address] [place] [place] [address] Dizziness; Generalized weakness; Benign essential hypertension; Right [...] a 60 y.o. female presenting to the [facility] Primary Care Clinic Balance Issues/Dizziness Sx for [...] limbs documented in this encounter Care Teams Clinical Staff Anesthesiologist Relationship Specialty Start Date End Date Hoang Castellanos APRN [address] [place] [address] PCP - General Family Medicine 03/12/20 documented as of this encounter
--- OUTSIDE RECORDS SUMMARY | 2024-08-07 14:09 | XMS_ITS | Encounter Summary ---
[place] [address] Care Team Providers Care Cloud Consultant Name Role Phone Hoang Castellanos APRN Primary Care Provider Reason for Visit * Reason Onset Date Comments Appointment 12/29/2020 Encounter Details Date Type Department Care Team (Late st Contact Info) Description 12/29/2020 Telephone [place] [phone] Keron Theodore MD Appointment Social History Tobacco [...] on filedocumented in this encounter Care Teams Cloud Consultant Relationship Specialty Start Date End Date Hoang Castellanos, ELECTRONICS TESTER [address] [place] [address] PCP - General Family Medicine 03/12/20 documented as of this encounter
--- OUTSIDE RECORDS SUMMARY | 2024-08-07 14:09 | XMS_ITS | Encounter Summary ---
Author Organization [place] [address] Care Team Providers Care Print Color Matcher Name Role Phone Hoang Castellanos APRN Primary Care Provider Encounter Details Date Type Department Care Team (Late st Contact Info) Description 01/13/2021 Abstract [facility] [address] [place] [phone] Provider, His MD Che Social History Tobacco [...] filedocumented in this encounter Care Teams Print Color Matcher Relationship Specialty Start Date End Date Hoang Castellanos APRN [address] [place] [address] PCP - General Family Medicine 03/12/20 documented as of this encounter
--- OUTSIDE RECORDS SUMMARY | 2024-08-07 14:09 | XMS_ITS | Encounter Summary ---
Author Organization [facility] [place] [address] Care Team Providers Care Rock Crusher Operator Name Role Phone Hoang Castellanos APRN Primary Care Provider Encounter Details Date Type Department Care Team (Late st Contact Info) Description 04/08/2021 [place] [address] Campos Puente MD [facility] [place] [address] Social History Tobacco Use Types Packs/Day Years [...] filedocumented in this encounter Care Teams Rock Crusher Operator Relationship Specialty Start Date End Date Hoang Castellanos, SAM [address] [place] [address] PCP - General Family Medicine 03/12/20 documented as of this encounter
--- OUTSIDE RECORDS SUMMARY | 2024-08-07 14:09 | XMS_ITS | Encounter Summary ---
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 Procedures NM Pharmacologic Stress and Rest Myocardial Perfusion Dustin Haynes [facility] [place] [address] [place] [address] Referral ID Status Reason Start Date Expiration Date V isits Requested Visits Authorized [id number] Closed Specialty Service Requested 02/16/2021 07/24/2021 1 1 * Diagnostic Test (Routine) - Closed Specialty Diagnoses / Procedures Referred By Contac t Referred To Contact Radiology Diagnoses 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 Procedures NM Pharmacologic Stress CT Component Dustin Haynes [facility] [place] [address] [place] [address] Referral ID Status Reason Start Date Expiration Date V isits Requested Visits Authorized [id number] Closed Specialty Service Requested 02/16/2021 07/24/2021 1 1 * Consultation (Routine) - Closed Specialty Diagnoses / Procedures Referred By Contac t Referred To Contact Primary Care Diagnoses 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 Dustin Haynes DO [facility] DR CARDIOLOGY DEPT [place], [place] [id number] [place] [address] [place] [address] Referral ID Status Reason Start Date Expiration Date V isits Requested Visits Authorized [id number] Closed Consult, Test & Treat 01/07/2021 01/07/2022 1 1 Reason for Visit * Consultation (Routine) - Closed Specialty Diagnoses / Procedures Referred By Contac t Referred To Contact Cardiology Diagnoses 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 CAD - 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 *ED Hoang Castellanos M, CIVIL ENGINEER [address] [place] [address] Freddy Mejias MD [facility] [place] [address] Referral ID Status Reason Start Date Expiration Date V isits Requested Visits Authorized [id number] Closed Consult, Test & Treat 07/16/2020 07/16/2021 6 6 Encounter Details Date Type Department Care Team (Late st Contact Info) Description 01/07/2021 2:20 PM EDT Office Visit Cardiology at [address] [address] Benito Reed MD [facility] [address] Ananth Almodovar MD [facility] [place] [address] Dustin Haynes DO 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 [facility] ALVIN Zimmerman [address] CARDIOLOGY OUTPATIENT NOTE PRIMARY CARE PROVIDER: Hoang [...] RS Psychiatry ??? Osteoporosis DEXA done at [facility] on 10/29/15: osteoporosis at the left hip [...] 90 tablet 3 ??? Miscellaneous Medical [facility] [...] daily (with meals). ??? l[facility] by [facility].(Non-Drug; Combo Route) route daily. 100 each [...] SOCIAL HISTORY: , no children. Lives in [place]. Occupation: On Disability. Smoking: Active smoker, 1-2ppd, [...] of stress test or symptoms. 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 ? Electronically signed by: Matthew Morrison MD, [facility] ([phone]), at 04/15/2021 3:42 PM Narrative 04/15/2021 3:42 [...] have questions please contactthe health wound care coordinator that requested your imaging first. Electronically signed by: Matthew Morrison MD, [facility]([phone]), at 04/15/2021 3:42 PM Benito Reed MD [...] questions please contact the health wound care coordinator that requested your imaging first. ? Electronically signed by: Matthew Morrison MD, [facility] ([phone]), at 04/15/2021 3:42 PM Narrative 04/15/2021 3:42 [...] have questions please contactthe health wound care coordinator that requested your imaging first. 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
--- OUTSIDE RECORDS SUMMARY | 2024-08-07 14:09 | XMS_ITS | Encounter Summary ---
Author Organization [facility] [place] [address] Care Team Providers Care Roll Or Tape Edge Machine Operator Name Role Phone Hoang Castellanos APRN Primary Care Provider [phone] Reason for Visit * Reason Comments Medication Refill Encounter Details Date Type Department Care Team (Late st Contact Info) Description 12/23/2020 Refill Primary Care at [facility] [address] [place] [phone] Hoang Castellanos APRN [address] [facility] [place] [address] Social History Tobacco Use Types Packs/Day Years [...] filedocumented in this encounter Care Teams Roll Or Tape Edge Machine Operator Relationship Specialty Start Date End Date Hoang Castellanos, FUR CLIPPER [address] [place] [address] PCP - General Family Medicine 03/12/20 documented as of this encounter
--- OUTSIDE RECORDS SUMMARY | 2024-08-07 14:09 | XMS_ITS | Encounter Summary ---
Author Organization [facility] [place] [address] Care Team Providers Care Transport Coordinator Name Role Phone Hoang Castellanos APRN Primary Care Provider Encounter Details Date Type Department Care Team (Late st Contact Info) Description 12/10/2020 Telephone Primary Care at [facility] 10 [facility] [place] [address] Hoang Castellanos APRN [address] [place] [address] Social History Tobacco Use Types Packs/Day Years [...] sister. Jeannie is going to have someone product picker a form so she can fill [...] She has an appointment her at the [facility] on 12/15/2020 with her Provider, Hoang Castellanos [...] panicking. She said she called triage at [facility]. She doesn't want to go to [...] on filedocumented in this encounter Care Teams Transport Coordinator Relationship Specialty Start Date End Date Hoang Castellanos, BREAD OVEN OPERATOR [address] [place] [address] PCP - General Family Medicine 03/12/20 documented as of this encounter
--- OUTSIDE RECORDS SUMMARY | 2024-08-07 14:09 | XMS_ITS | Encounter Summary ---
[place] [address] Care Team Providers Care Coagulation Operator Name Role Phone Hoang Castellanos APRN Primary Care Provider Encounter Details Date Type Department Care Team (Late st Contact Info) Description 04/07/2021 12:45 PM EDT Laboratory Appointment Lab [address] [place] [phone] Social History Tobacco Use Types Packs/Day Years [...] Lamotrigine Lvl (04/07/2021 1:29 PM EDT) Pathologist [facility] Lamotrigine Lvl (NOVEMBER) 3.5 2.5 - 15.0 mcg/mL [facility] Comment: ADDITIONAL INFORMATION This test was developed and its performance characteristics determined by [facility] in a manner consistent with CLIA requirements. This test has not been cleared or approved by the U.S. Food and Drug Administration. Test Performed by: [facility] [place] [address] Family Practice Nurse Practitioner: Skinny Reyes M.D. Ph.D.; CLIA# [id number] Blood Venous Draw / Unknown 04/07/2021 1:29 PM EDT 04/07/2021 4:27 PM EDT Narrative Resulting Agency Comment Spec In Lab Gurjit Bass MD LAB SEND OUT ORDERAB LES [facility] [place] [address] * Vitamin B12 (04/07/2021 1:29 PM EDT) [facility] Vitamin B12 1,018 232 - 1,245 pg/mL [facility] Blood Venous Draw / Unknown 04/07/2021 1:29 PM EDT 04/07/2021 2:08 PM EDT Narrative Resulting Agency Comment Spec In Lab Gurjit Bass MD CHEMISTRY ORDERABLES [facility] [place] [address] * Basic Metabolic Panel (non-fasting) (04/07/2021 1:29 PM EDT) Glucose 124 65 - 199 mg/dL [facility] Comment:Diabetes: >=200 mg/d L plus symptoms Blood Urea Nitrogen 18 8 - 18 mg/dL [facility] Creatinine 0.81 0.70 - 1.20 mg/dL [facility] Sodium 140 135 - 145 mmol/L [facility] Potassium 3.9 3.5 - 5.0 mmol/L [facility] Comment: Please note: ??Patients with WBC >100,000 may have falsely elevated Potassium levels. ??For accurate Potassium quantification in these patients send serum separator tube (gold top) for subsequent determinations. ??Contact the Clinical Chemistry Laboratory if there are any questions. Chloride 101 98 - 107 mmol/L [facility] Carbon Dioxide 31 22 - 31 mmol/L [facility] Anion Gap 8 5 - 15 mmol/L [facility] Calcium 9.6 8.5 - 10.5 mg/dL [facility] Est Glomerular Filtration Rate 79 >=60 mL/min/1. 73 m?? [facility] [...] CHEMISTRY ORDERABLES Performing Organization Address City/[facility] Co de Phone Number [facility] [place] [address] * (ABNORMAL) Hepatic Function Panel (04/07/2021 1:29 PM EDT) Pathologist [facility] Protein, Total 6.6 6.1 - 8.0 gm/dL [facility] Albumin 4.0 3.2 - 5.2 gm/dL [facility] Aspartate Aminotransferase 9 0 - 30 unit/L [facility] Alanine Aminotransferase 10 0 - 30 unit/L [facility] Alkaline Phosphatase 125(H) 35 - 105 unit/L [facility] Bilirubin, Total 0.2 0.2 - 1.3 mg/dL [facility] Bilirubin, Direct 0.1 0.0 - 0.3 mg/dL [facility] Blood Venous Draw / Unknown 04/07/2021 1:29 PM EDT 04/07/2021 2:08 PM EDT Narrative Resulting Agency Comment Spec In Lab Gurjit Bass MD CHEMISTRY ORDERABLES Performing Organization Address [facility] Co de Phone Number [facility] [place] [address] * T4 Total (04/07/2021 1:29 PM EDT) [facility] T4 Total 7.4 5.3 - 11.6 mcg/dL [facility] Comment: Reference Interval (mcg/dL): Females: ??First Trimester: 6.3-13.5 ??Second Trimester: 7.1-14.3 ??Third Trimester: 6.9-14.1 Blood Venous Draw / Unknown 04/07/2021 1:29 PM EDT 04/07/2021 2:08 PM EDT Narrative Resulting Agency Comment Spec In Lab Gurjit Bass MD CHEMISTRY ORDERABLES Performing Organization Address [facility]/ZIP Co de Phone Number [facility] [place] [address] * TSH (04/07/2021 1:29 PM EDT) [facility] Thyroid Stimulating Hormone 2.27 0.27 - 4.20 mcIU/mL [facility] Comment: Reference Interval (mcIU/mL): Females: ??First Trimester: 0.23-3.88 ??Second Trimester: 0.22-3.90 ??Third Trimester: 0.44-4.66 Blood Venous Draw / Unknown 04/07/2021 1:29 PM EDT 04/07/2021 2:08 PM EDT Narrative Resulting Agency Comment Spec In Lab Gurjit Bass MD CHEMISTRY ORDERABLES Performing Organization Address City/[facility]/ZIP Co de Phone Number [facility] [place] [address] * (ABNORMAL) Differential, Automated (04/07/2021 1:29 PM EDT) [facility] Neutrophil % 71.8 % [facility] Neutrophil Absolute 6.73(H) 1.70 - 6.10 x10(3)/mc L [facility] Lymph % 20.4 % [facility] Lymphocytes Abs 1.9 0.9 - 3.2 x10(3)/mc L [facility] Monocyte % 6.2 % [facility] Monocyte Abs 0.6 0.3 - 0.9 x10(3)/mc L [facility] Eos % 0.7 % [facility] Eosinophils Abs 0.1 0.0 - 0.4 x10(3)/mc L [facility] Basophil % 0.6 % [facility] Baso Absolute 0.1 0.0 - 0.1 x10(3)/[facility] Immature Gran % 0.30 % [facility] Comment: Immature granulocytes(IG's)percentage and absolute count will include metamyelocytes, myelocytes, and promyelocytes. Blood smears from CBCs yielding IG's will be scanned manually for concordance. If this scan disagrees with the automated IG or if promyelocytes are noted, a manual differential will be performed. Immature Gran Absolute 0.03 0.00 - 0.04 x10(3)/[facility] Blood Venous Draw / Unknown 04/07/2021 1:29 PM EDT 04/07/2021 2:08 PM EDT Narrative Resulting Agency Comment Spec In Lab Gurjit Bass MD HEMATOLOGY ORDERABLE S Performing Organization Address City/State/[facility] Co de Phone Number [facility] [place] [address] * (ABNORMAL) Hemogram (04/07/2021 1:29 PM EDT) White Blood Cell 9.4 4.0 - 9.5 x10(3)/[facility] Red Blood Cell 4.36 4.00 - 5.21 x10(6)/[facility] Hemoglobin 13.8 11.7 - 15.5 gm/dL [facility] Hematocrit 42.1 35.7 - 45.8 % [facility] Mean Cell Volume 96.6(H) 82.6 - 94.4 fL [facility] Mean Cell Hemoglobin 31.7 27.1 - 32.0 pg [facility] Mean Cell Hemoglobin Concentration 32.8 31.7 - 35.0 gm/dL [facility] Platelet 236 145 - 357 x10(3)/[facility] RDW Standard Deviation 49.1(H) 37.0 - 46.0 fL [facility] RDW coefficient of variation 13.7 11.5 - 14.1 % [facility] Mean Platelet Volume 10.1 7.6 - 12.9 fL [facility] NRBC% auto 0.0 % [facility] NRBC Absolute 0.000 0.000 - 0.000 x10(3)/mc L [facility] Blood Venous Draw / Unknown 04/07/2021 1:29 PM EDT 04/07/2021 2:08 PM EDT Narrative Resulting Agency Comment Spec In Lab Gurjit Bass MD HEMATOLOGY ORDERABLE S [facility] [place] [address] * Lyme IgG & IgM Antibody (04/07/2021 1:29 PM EDT) Lyme Antibody Neg Neg [facility] Blood Venous Draw / Unknown 04/07/2021 1:29 PM EDT 04/08/2021 7:10 AM EDT Narrative Resulting Agency Comment Spec In Lab Gurjit Bass MD IMMUNOLOGY ORDERABLE S [facility] [place] [address] documented in this encounter Visit Diagnoses Not on filedocumented in this encounter Care Teams Coagulation Operator Relationship Specialty Start Date End Date Hoang Castellanos, BUSINESS DEVELOPMENT AGENT [address] [place] [address] PCP - General Family Medicine 03/12/20 documented as of this encounter
--- OUTSIDE RECORDS SUMMARY | 2024-08-07 14:09 | XMS_ITS | Encounter Summary ---
[place] [address] Care Team Providers Care Medical Radiation Tech Name Role Phone Hoang Castellanos APRN Primary Care Provider Reason for Referral * Diagnostic Test (Routine) - Closed Specialty Diagnoses / Procedures Referred By Contac t Referred To Contact Radiology Diagnoses Weakness of both lower limbs Bilateral hand numbness Procedures MRI Cervical Spine wo Contrast (Generic) Altagracia Baltazar MD [facility] [place] [address] [place] [address] Referral ID Status Reason Start Date Expiration Date V isits Requested Visits Authorized [id number] Closed Specialty Service Requested 02/04/2021 08/07/2022 1 1 Reason for Visit * Diagnostic Test (Routine) - Closed Specialty Diagnoses / Procedures Referred By Contac t Referred To Contact Radiology Diagnoses Weakness of both lower limbs Bilateral hand numbness Procedures MRI Cervical Spine wo Contrast (Generic) Altagracia Baltazar MD [facility] [place] [address] [place] [address] Referral ID Status Reason Start Date Expiration Date V isits Requested Visits Authorized [id number] Closed Specialty Service Requested 02/04/2021 08/07/2022 1 1 Encounter Details Date Type Department Care Team (Latest Contact Info) Description 03/10/2021 7:01 AM EDT - 03/10/2021 11:59 PM EDT [place] [address] Altagracia Baltazar MD [facility] [place] [place] [address] Weakness of both lower limbs; Bilateral hand [...] 09/28/2021 Ventolin HFA 90 mcg/actuation HFA Aerosol InhalerIndications:Bottle Cleaner randell obstructive pulmonary disease, unspecified COPD type [...] who have questions please contact the health caretaker grounds that requested your imaging first. ? Narrative [...] patients who have questions please contactthe health caretaker grounds that requested your imaging first. Altagracia Baltazar MD IMG MRI ORDERABLES documented in this encounter Visit Diagnoses Diagnosis Weakness of both lower limbs Other musculoskeletal symptoms referable to limbs Bilateral hand numbness Disturbance of skin sensation documented in this encounter Care Teams Medical Radiation Tech Relationship Specialty Start Date End Date Hoang Castellanos, DESK PEN SET ASSEMBLER [address] [place] [address] PCP - General Family Medicine 03/12/20 documented as of this encounter
--- OUTSIDE RECORDS SUMMARY | 2024-08-07 14:09 | XMS_ITS | Encounter Summary ---
Author Organization [facility] [address] Care Team Providers Care Mechanical Operator Name Role Phone Hoang Castellanos APRN Primary Care Provider [phone] Reason for Visit * Consultation (Routine) - Closed Specialty Diagnoses / Procedures Referred By Contdavide t Referred To Contact Neurology Diagnoses Right leg weakness Dizziness Hoang Castellanos APRN [address] [place] [address] [facility] Neurology [address] [place] [address] Referral ID Status Reason Start Date Expiration Date V isits Requested Visits Authorized [id number] Closed Specialty Service Requested 12/17/2020 12/17/2021 12 12 Encounter Details Date Type Department Care Team (Late st Contact Info) Description 02/04/2021 8:00 AM EDT TH Visit (TeleHealth) [place] [address] Altagracia Baltazar MD [facility] [place] [address] Weakness of both lower limbs [...] 90 tablet 3 ??? Miscellaneous Medical Supply [facility] 1 walker on wheels with seat [...] lancets 30 gauge Misc 1 each by [facility].(Non-Drug; Combo Route) route daily. (Patient not [...] lumbosacral plexopathy, radiculopathy, or sciatic mononeuropathy. Altagracia Baltaazr MD Associate Prof Neurol Neuromuscular Medicine & Clinical Neurophysiology\ documented in this encounter Plan of Treatment Scheduled Referrals Name Type Priority Associated Diagnoses Orde r Schedule Referral to Neurology Outpatient Referral Routine Right leg weakness Dizziness Ordered: 12/17/2020 documented as of this encounter Visit Diagnoses Diagnosis Weakness of both lower limbs Other musculoskeletal symptoms referable to limbs documented in this encounter Care Teams Mechanical Operator Relationship Specialty Start Date End Date Hoang Castellanos, LIFE ASSURANCE REPRESENTATIVE [address] [place] [address] PCP - General Family Medicine 03/12/20 documented as of this encounter
--- OUTSIDE RECORDS SUMMARY | 2024-08-07 14:09 | XMS_ITS | Encounter Summary ---
[place] [address] Care Team Providers Care Dumb Waiter Operator Name Role Phone Hoang Castellanos APRN Primary Care Provider Reason for Referral * Diagnostic Test (Routine) - Closed Specialty Diagnoses / Procedures Referred By Vanita dimas Referred To Contact Radiology Diagnoses Weakness of both lower limbs Bilateral hand numbness Procedures MRI Cervical Spine wo Contrast (Generic) Altagracia Baltazar MD [facility] [place] [address] [place] [address] Referral ID Status Reason Start Date Expiration Date V isits Requested Visits Authorized [id number] Closed Specialty Service Requested 02/04/2021 08/07/2022 1 1 Encounter Details Date Type Department Care Team (Late st Contact Info) Description 02/04/2021 Orders [place] [address] Altagracia Baltazar MD [facility] [place] [address] Weakness of both lower limbs; [...] who have questions please contact the health pet care worker that requested your imaging first. [...] patients who have questions please contactthe health pet care worker that requested your imaging first. Altagracia Baltazar MD [facility] MRI ORDERABLES * (ABNORMAL) Basic Metabolic Panel (non-fasting) (02/26/2021 12:14 PM EDT) [facility] Glucose 107 65 - 199 mg/dL LABORATORY [...] ORDERABLE S [facility] [address] [place] [address] * Acetylcholine Receptor Ab Binding (02/26/2021 12:14 PM EDT) Achr Binding Ab (NOVEMBER) 0.00 <=0.02 nmol/L [facility] Comment: ADDITIONAL INFORMATION This test was developed and its performance characteristics determined by [facility] in a manner consistent with CLIA requirements. This test has not been cleared or approved by the U.S. Food and Drug Administration. Test Performed by: [facility] - [address] [address] Escrow Manager: Skinny Reyes M.D. Ph.D.; CLIA# [id number] Blood 02/26/2021 12:1 4 PM EDT 02/26/2021 5:14 PM EDT Narrative Resulting Agency Comment Spec In Lab Altagracia Baltazar MD LAB SEND OUT ORDERA BLES Performing Organization Address [facility] Co de Phone Number [facility] [address] [place] [address] * CK (02/26/2021 12:14 PM EDT) Creatine Kinase 79 0 - 160 unit/L [facility] Blood 02/26/2021 12:1 4 PM EDT 02/26/2021 12:26 PM EDT Narrative Resulting Agency Comment Spec In Lab Altagracia Baltazar MD CHEMISTRY ORDERABLE S Performing Organization Address [facility] de Phone Number [facility] [address] [place] [address] documented in this encounter Visit Diagnoses Diagnosis Weakness of both lower limbs Other musculoskeletal symptoms referable to limbs Bilateral hand numbness Disturbance of skin sensation Gait disturbance Abnormality of gait Diplopia Weakness of both lower limbs Other musculoskeletal symptoms referable to limbs Bilateral hand numbness Disturbance of skin sensation documented in this encounter Care Teams Dumb Waiter Operator Relationship Specialty Start Date End Date Hoang Castellanos, MANAGEMENT MANAGER [address] [place] [address] PCP - General Family Medicine 03/12/20 documented as of this encounter
--- OUTSIDE RECORDS SUMMARY | 2024-08-07 14:09 | XMS_ITS | Encounter Summary ---
Author Organization [facility] [address] Care Team Providers Care Paint Coating Machine Operator Name Role Phone Hoang Castellanos APRN Primary Care Provider Reason for Referral * Diagnostic Test (Routine) - Closed Specialty Diagnoses / Procedures Referred By Contac t Referred To Contact Radiology Diagnoses Myelopathy Procedures MRI Thoracic Spine wo Contrast (Generic) Gurjit Bass MD [facility] [place] [address] [facility] Rad Mri [address] [place] [address] Referral ID Status Reason Start Date Expiration Date V isits Requested Visits Authorized [id number] Closed Specialty Service Requested 03/26/2021 09/23/2022 1 1 Reason for Visit * Consultation (Routine) - Closed Specialty Diagnoses / Procedures Referred By Contac t Referred To Contact Neurology Diagnoses Intracranial hypertension Hoang Castellanos APRN [address] [facility] [place] [address] Gurjit Bass MD [facility] [place] [address] Referral ID Status Reason Start Date Expiration Date V isits Requested Visits Authorized [id number] Closed Specialty Service Requested 02/09/2021 02/09/2022 12 12 Encounter Details Date Type Department Care Team (Late st Contact Info) Description 03/26/2021 1:00 PM EDT [place] [address] Gurjit Bass MD [facility] [place] [place] [address] Bipolar affective disorder, remission status unspecified; Seizures; [...] and they should contact you and your caser up to set up a clinic appointment. You [...] arise. Gurjit Bass MD Professor of neurology, [employer] [facility] Department of Neurology, [place] [address], [address] Pager: [phone], #[phone] Email: [email or web address] documented in this encounter Progress Notes * [...] me, as I had followed her from 1171-7789. Has a complex medical and neurological history [...] chemistry and liver profile, thyroid function tests, N75mrmsy, TSH level, CK and hemoglobin A1c and [...] Hypothyroidism, acquired ??? Borderline personality disorder Per [facility] Psychiatry ??? 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 Review of systems: 1. Eating: Normal [...] have spoken with the patient, and the caser up who accompanied her, to discuss what needs to be done. I have strongly advised her to stop smoking immediately Thank you for this consultation. I will see the patient back in 3 months or sooner if necessary Gurjit Bass MD [place] [address] Pager: [phone], #[phone] Email: CC: Hoang Baltazar MD documented in [...] have questions please contact the health home care physical therapist that requested your imaging first. ? Narrative [...] who have questions please contactthe health home care physical therapist that requested your imaging first. Electronically signed by: Freddy Christian [facility]([phone]), at 06/24/2021 3:53 PM Gurjit Bass MD IMG MRI ORDERABLES documented in this encounter Visit Diagnoses Diagnosis Bipolar affective disorder, remission status unspecified Seizures Other convulsions Myelopathy Unspecified disease of spinal cord Myelopathy Unspecified disease of spinal cord documented in this encounter Care Teams Paint Coating Machine Operator Relationship Specialty Start Date End Date Hoang Castellanos, AUDITING CLERK [address] [place] [address] PCP - General Family Medicine 03/12/20 documented as of this encounter
--- OUTSIDE RECORDS SUMMARY | 2024-08-07 14:09 | XMS_ITS | Encounter Summary ---
[place] [address] Care Team Providers Care Training And Development Manager Name Role Phone Hoang Castellanos APRN Primary Care Provider Reason for Referral * Diagnostic Test (Routine) - Closed Specialty Diagnoses / Procedures Referred By Contac t Referred To Contact Radiology Diagnoses Coronary artery disease involving [place] coronary artery of [place] heart without angina pectoris Procedures NM Pharmacologic Stress and Rest Myocardial Perfusion Dustin Haynes [facility] [address] [place] [address] Referral ID Status Reason Start Date Expiration Date V isits Requested Visits Authorized [id number] Closed Specialty Service Requested 02/16/2021 07/24/2021 1 1 Reason for Visit * Diagnostic Test (Routine) - Closed Specialty Diagnoses / Procedures Referred By Contac t Referred To Contact Radiology Diagnoses Coronary artery disease involving [place] coronary artery of [place] heart without angina pectoris Procedures NM Pharmacologic Stress and Rest Myocardial Perfusion Dustin aHynes [facility] [place] [address] [place] [address] Referral ID Status Reason Start Date Expiration Date V isits Requested Visits Authorized [id number] Closed Specialty Service Requested 02/16/2021 07/24/2021 1 1 Encounter Details Date Type Department Care Team (Late st Contact Info) Description 04/15/2021 10:20 AM EDT - 04/15/2021 10:28 AM EDT Hospital Encounter [place] [address] Benito Reed MD [facility] [place] [address] Coronary artery disease involving [place] coronary artery of [place] heart without angina pectoris Discharge Disposition: Home [...] Sustained Release 24 hrIndications:Coronary artery disease involving [place] coronary artery of [place] heart without angina pectoris TAKE ONE (1) [...] 09/28/2021 Ventolin HFA 90 mcg/actuation HFA Aerosol InhalerIndications:Catalyst Impregnator randell obstructive pulmonary disease, unspecified COPD type [...] 11:37 AM EDT Coronary artery disease involving [place] coronary artery of [place] heart without angina pectoris documented in this [...] who have questions please contact the health careers adviser that requested your imaging first. ? Narrative [...] patients who have questions please contactthe health careers adviser that requested your imaging first. Benito Reed MD IMG NM ORDERABL ES documented in this encounter Visit Diagnoses Diagnosis Coronary artery disease involving [place] coronary artery of [place] heart without angina pectoris documented in this [...] Arm documented in this encounter Care Teams Training And Development Manager Relationship Specialty Start Date End Date Hoang Castellanos, SAM [address] [place] [address] PCP - General Family Medicine 03/12/20 documented as of this encounter
--- OUTSIDE RECORDS SUMMARY | 2024-08-07 14:09 | XMS_ITS | Encounter Summary ---
[place] [address] Care Team Providers Care Induction Brazer Name Role Phone Hoang Castellanos APRN Primary Care Provider Reason for Referral * Diagnostic Test (Routine) - Closed Specialty Diagnoses / Procedures Referred By Contac t Referred To Contact Cardiology Diagnoses Coronary artery disease involving [place] coronary artery of [place] heart without angina pectoris Procedures Echocardiogram Transthoracic([facility]) Dustin Haynes, [facility] [place] [address] [facility] [place] [address] Referral ID Status Reason Start Date Expiration Date V isits Requested Visits Authorized [id number] Closed Specialty Service Requested 10/01/2020 10/01/2021 1 1 Reason for Visit * Diagnostic Test (Routine) - Closed Specialty Diagnoses / Procedures Referred By Contac t Referred To Contact Cardiology Diagnoses Coronary artery disease involving [place] coronary artery of [place] heart without angina pectoris Procedures Echocardiogram Transthoracic([facility] or [facility]) Dustin Haynes [facility] [place] [address] [facility] [place] [address] Referral ID Status Reason Start Date Expiration Date V isits Requested Visits Authorized [id number] Closed Specialty Service Requested 10/01/2020 10/01/2021 1 1 Encounter Details Date Type Department Care Team (Late st Contact Info) Description 01/07/2021 12:08 PM EDT - 01/07/2021 11:59 PM EDT Hospital Encounter Non-Invasive [place] [id number] Benito Reed MD [facility] [place] [address] Coronary artery disease involving [place] coronary artery of [place] heart without angina pectoris Discharge Disposition: Home [...] 09/28/2021 Ventolin HFA 90 mcg/actuation HFA Aerosol InhalerIndications:Bee Producer randell obstructive pulmonary disease, unspecified COPD type [...] 1:27 PM EDT Coronary artery disease involving [place] coronary artery of [place] heart without angina pectoris documented in this encounter Results * ECHO COMPLETE W CONTRAST (01/07/2021 1:27 PM EDT) EF 65 [facility] SYSTEM Anatomical Region Laterality Modality Other 01/07/2021 Narrative 01/07/2021 1:36 PM EDT Procedure: ?Transthoracic Echocardiogram Patient: ?APOLINAR RUSSELL L ? (Age): 1960(60y) Med Rec#: ? [id number] ?Sex: ?F ? Site Loc: ? [facility] ?Ht / Wt: ??163(cm)/99(kg) Pt. Loc: ?Echo Lab ?BSA: ?2.03 Study Date: ?? 01/07/2021 ?Pt. Type: Outpatient Tape: ? Referring: LAURA Reading: Freddy Mejias ([id number]) Outdoor Emergency Care Technician: Saranya Monson Test Engineer Nuclear Equipment: Zackary Feldman Diagnosis: *Atherosclerotic heart disease of [place] coronary artery without angina pectoris (I25.10) BP: [...] Vmax ?0.56 ? m/sec ? MV deceleration riut554.41 ? msec ? MV A-wave Vmax ?0.81 [...] ? Mid-Inferior ?Normal ? Mid-Inferoseptal ?Normal ? [place]-Septal ? Normal ? [place]-Anterior ? Normal ? [place]-Lateral ?Normal ? [place]-Inferior ? Normal ? [place]-Tip ?Normal ? This report has been electronically signed by: Freddy Mejias MD ? 01/07/2021 13:36:15 Images reviewed and interpretation verified [facility] Cardiac Ultrasound Laboratory Procedure Note Freddy Mejias MD - 01/07/2021 Procedure: Transthoracic Echocardiogram Patient: APOLINAR Lawson (Age): 1960(60y) Med Rec#: [id number] Sex: F Site Loc: [facility] Ht / Wt: 163(cm)/99(kg) Pt. Loc: Echo Lab BSA: 2.03 Study Date: 01/07/2021 Pt. Type: Outpatient Tape: Referring: LAURA Reading: Freddy Mejias ([id number]) Outdoor Emergency Care Technician: Saranya Monson Test Engineer Nuclear Equipment: Friend, Zackary Diagnosis: *Atherosclerotic heart disease of [place] coronary artery without angina pectoris (I25.10) BP: [...] MV E-wave Vmax 0.56 m/sec MV deceleration vbdc292.41 msec MV A-wave Vmax 0.81 m/sec MV [...] Normal Mid-Posterolateral Normal Mid-Inferior Normal Mid-Inferoseptal Normal [place]-Septal Normal [place]-Anterior Normal [place]-Lateral Normal [place]-Inferior Normal [place]-Tip Normal This report has been electronically signed by: Freddy Mejias MD 01/07/2021 13:36:15 Images reviewed and interpretation verified [facility] Cardiac Ultrasound Laboratory Benito Reed MD ECHO ORDERABLES documented in this encounter Visit Diagnoses Diagnosis Coronary artery disease involving [place] coronary artery of [place] heart without angina pectoris documented in this [...] mLs documented in this encounter Care Teams Induction Brazer Relationship Specialty Start Date End Date Hoang Castellanos APRN [address] [place] [address] PCP - General Family Medicine 03/12/20 documented as of this encounter
--- OUTSIDE RECORDS SUMMARY | 2024-08-07 14:09 | XMS_ITS | Encounter Summary ---
Author Organization [facility] Address [facility] [place] [address] Care Team Providers Care Wildlife Biologist Name Role Phone Hoang Castellanos APRN Primary Care Provider Encounter Details Date Type Department Care Team (Late st Contact Info) Description 03/27/2021 [place] [address] Altagracia Baltazar MD [facility] [place] [address] Social History Tobacco Use Types Packs/Day Years [...] on filedocumented in this encounter Care Teams Wildlife Biologist Relationship Specialty Start Date End Date Hoang Castellanos, PRINTED CIRCUIT BOARD PREASSEMBLER [address] [place] [address] PCP - General Family Medicine 03/12/20 documented as of this encounter
--- OUTSIDE RECORDS SUMMARY | 2024-08-07 14:09 | XMS_ITS | Encounter Summary ---
[place] [address] Care Team Providers Care Supervisor Scenic Arts Name Role Phone Hoang Castellanos APRN Primary Care Provider Encounter Details Date Type Department Care Team (Late st Contact Info) Description 12/12/2020 Telephone Primary Care at [facility] [address] [place] [phone] Shannon Cruz, RN Social History Tobacco Use [...] filedocumented in this encounter Care Teams Supervisor Scenic Arts Relationship Specialty Start Date End Date Hoang Castellanos, SCREED PERSON [address] [place] [address] PCP - General Family Medicine 03/12/20 documented as of this encounter
--- OUTSIDE RECORDS SUMMARY | 2024-08-07 14:09 | XMS_ITS | Encounter Summary ---
[place] [address] Care Team Providers Care Automotive Electrical Helper Name Role Phone Hoang Castellanos APRN Primary Care Provider Encounter Details Date Type Department Care Team (Late st Contact Info) Description 03/27/2021 Telephone Primary Care at [facility] [address] [place] [phone] Shannon Cruz, RN Social History Tobacco Use [...] will get lab work done at [facility] soon. documented in this encounter Plan of Treatment Not on file documented as of this encounter Visit Diagnoses Not on filedocumented in this encounter Care Teams Automotive Electrical Helper Relationship Specialty Start Date End Date Hoang Castellanos, LICENSED EMBALMER SUPERVISOR [address] [place] [address] PCP - General Family Medicine 03/12/20 documented as of this encounter
--- OUTSIDE RECORDS SUMMARY | 2024-08-07 14:09 | XMS_ITS | Encounter Summary ---
Author Organization [facility] Address [facility] [place] [address] Care Team Providers Care Home Care Aide Name Role Phone Hoang Castellanos APRN Primary Care Provider Encounter Details Date Type Department Care Team (Late st Contact Info) Description 04/07/2021 2:00 PM EDT Office [place] [address] Campos Puente MD [facility] [place] [address] Cervical spondylosis Social History Tobacco Use Types [...] her sister, Rae Mittal who resides in [place]. She arrives to this visit in a wheelchair. She is accompanied to this visit by her prosthetist. On examination this is a woman with [...] is intact to light touch and proprioception. Mkipcs-un-[id number] is performed accurately. She can arise from [...] myelopathy documented in this encounter Care Teams Home Care Aide Relationship Specialty Start Date End Date Hoang Castellanos APRN [address] [place] [address] PCP - General Family Medicine 03/12/20 documented as of this encounter
--- OUTSIDE RECORDS SUMMARY | 2024-08-07 14:09 | XMS_ITS | Encounter Summary ---
Author Organization [facility] [place] [address] Care Team Providers Care Summer School Coordinator Name Role Phone Hoang Castellanos APRN Primary Care Provider [phone] Encounter Details Date Type Department Care Team (Late st Contact Info) Description 12/10/2020 Telephone Primary Care at [facility] [address] [facility] [place] [phone] Hoang Castellanos APRN [address] [place] [address] Social History Tobacco Use Types Packs/Day Years [...] Notes * Telephone Encounter - Meena Galloway, [facility] - 12/10/2020 10:09 AM EDT I placed a follow up call this morning to speak with patient regarding her loss of vision in her right eye. I saw the note from colon and rectal surgeon provider recommending patient go to the ER, [...] be seen emergently by Dr. Garcia at [facility] for an urgent exam. In speaking with patient this morning she was agreeable to this, and I let her know as soon as I spoke to elizabeth bond at [facility], I would let her know. I spoke to Marli at [facility] who was able to have patient seen and refer her to [facility] if needed. Patient was notified that Dr. [...] on filedocumented in this encounter Care Teams Summer School Coordinator Relationship Specialty Start Date End Date Hoang Castellanos APRN [address] [place] [address] PCP - General Family Medicine 03/12/20 documented as of this encounter
--- OUTSIDE RECORDS SUMMARY | 2024-08-07 14:09 | XMS_ITS | Encounter Summary ---
[place] [address] Care Team Providers Care Party Plan Sales Consultant Name Role Phone Hoang Castellanos APRN Primary Care Provider Encounter Details Date Type Department Care Team (Late st Contact Info) Description 12/17/2020 Telephone Primary Care at [facility] 10 [place] [phone] Jeannie Luciano, RN Social History Tobacco Use [...] insulin documented in this encounter Care Teams Party Plan Sales Consultant Relationship Specialty Start Date End Date Hoang Castellanos, MERCURY PURIFIER [address] [place] [address] PCP - General Family Medicine 03/12/20 documented as of this encounter
--- OUTSIDE RECORDS SUMMARY | 2024-08-07 14:09 | XMS_ITS | Encounter Summary ---
Author Organization [facility] [address] Care Team Providers Care Forming Department Supervisor Name Role Phone Hoang Castellanos APRN Primary Care Provider Reason for Referral * Consultation (Routine) - Closed Specialty Diagnoses / Procedures Referred By Contac t Referred To Contact Thoracic Surgery Diagnoses Smokes cigarettes Hoang Castellanos APRN [address] [place] [address] Beatriz Matthews APRN [facility] [place] [address] Referral ID Status Reason Start Date Expiration Date V isits Requested Visits Authorized [id number] Closed Consult, Test & Treat 03/24/2021 03/24/2022 12 12 * Home Health Care (Routine) - Closed Specialty Diagnoses / Procedures Referred By Contac t Referred To Contact Physical Therapy Diagnoses Acute pain of right shoulder Hoang Castellanos APRN [address] [place] [address] [facility] [address] [address] Referral ID Status Reason Start Date Expiration Date V isits Requested Visits Authorized [id number] Closed Continuity of Care 03/23/2021 09/19/2021 12 12 * Diagnostic Test (Routine) - Closed Specialty Diagnoses / Procedures Referred By Contac t Referred To Contact Radiology Diagnoses Age-related osteoporosis without current pathological fracture Procedures DXA Central Spine, Hip, and/or Whole Body (Generic) Hoang Castellanos APRN [address] [facility] [place] [address] [facility] Rad Xray 10 [place] [address] Referral ID Status Reason Start Date Expiration Date V isits Requested Visits Authorized [id number] Closed Specialty Service Requested 03/23/2021 09/21/2022 1 1 Reason for Visit * Reason Comments Hypertension Diabetes Dizziness Edema Encounter Details Date Type Department Care Team (Late Contact Info) Description 03/23/2021 10:00 AM EDT Office Visit Primary Care at [facility] 10 [place] [address] Hoang Castellanos APRN [address] [facility] [place] [address] Type 2 diabetes mellitus without complication, without [...] this encounter Progress Notes * Hoang Castellanos, PLISSE MACHINE OPERATOR HELPER - 03/23/2021 10:00 AM EDT Subjective: HPI: Jeannie Rico is a 60 y.o. female presenting to the [facility] Primary Care Clinic HPI Patient presents [...] - Referral to Neurology - did a Canvita video ordered an MRI of my neck. Neurology-Dr. Baltazar 02/04 Severe spinal stenosis on MRI c-spine F/u with Dr. Baltazar on 04/14 ?? Dizziness - Referral to Neurology - Dr. Bass on , 03/26. [facility] PT/OT working on balance at home. Able [...] this encounter. (Established patient total visit time: 40284 - 20min, 82497 - 30 min, 49385 - 40 min; New patient total visit times: 63898 - 30 min, 44300 - 45 min, 53300 - 60 min) documented in this encounter [...] BMD measurements and plots are available in Eneedo under the imaging tab. Paper copies will be sent to providers without EIntraxio access. If you have received this report without the data sheet and do not have access to EiSoftStone, please contact [facility] at [phone]. Thank you for letting us participate in the care of this patient. ??If you are a health care provider and have any questions regarding this report, please contact the number below. ??For patients who have questions please contact the health patient centered care specialist that requested your imaging first. ? Electronically signed by: Hong Catherine MD, [facility] ([phone]), at 05/26/2021 1:03 PM Narrative 05/26/2021 1:03 [...] BMD measurements and plots are available in EiSoftStoneunder the imaging tab. Paper copies will be sent to providers without Noonswoon access.If you have received this report without the data sheet and do not haveaccess to E-, please contact [facility] at [phone]. Thank you for letting us participate in the care of this patient. If youare a health care provider and have any questions regarding this report,please contact the number below. For patients who have questions please contactthe health patient centered care specialist that requested your imaging first. Electronically signed by: Hong Catherine MD, [facility]([phone]), at 05/26/2021 1:03 PM Hoang Castellanos APRN [...] mammogram documented in this encounter Care Teams Forming Department Supervisor Relationship Specialty Start Date End Date Hoang Castellanos APRN [address] [place] [address] PCP - General Family Medicine 03/12/20 documented as of this encounter
--- OUTSIDE RECORDS SUMMARY | 2024-08-07 14:09 | XMS_ITS | Encounter Summary ---
Author Organization [facility] [place] [address] Care Team Providers Care Agricultural Lender Name Role Phone Hoang Castellanos APRN Primary Care Provider Reason for Visit * Reason Comments Right Leg Pain * Consultation (Routine) - Closed Specialty Diagnoses / Procedures Referred By Vanita dimas Referred To Contact Orthopaedics Diagnoses Chronic pain of right ankle Hoang Castellanos APRN [address] [facility] [place] [address] [facility] Orthopaedics 10 [place] [address] Referral ID Status Reason Start Date Expiration Date V isits Requested Visits Authorized [id number] Closed Specialty Service Requested 12/17/2020 12/17/2021 12 12 Encounter Details Date Type Department Care Team (Late st Contact Info) Description 02/26/2021 1:00 PM EDT Office Visit Orthopaedics at [facility] 10 [place] [address] Alexis Menezes PA [address] [facility] [place] [address] Chronic pain of right ankle [...] NAME: Jeannie Rico AGE: 60 y.o. MR#: [id number] DATE OF VISIT: 02/26/2021 DATE OF INJURY/ONSET: [...] BIOPSY performed by Ken Sanders MD at [facility] ENDOSCOPY ??? PRO UPPER GI ENDOSCOPY, BIOPSY N/A 09/19/2018 UPPER GASTROINTESTINAL ENDOSCOPY,WITH BIOPSY SINGLE OR MULTIPLE (WRVU 2.49) performed by Tyron Mercado MD at [facility] ENDOSCOPY ??? TONSILLECTOMY ??? UPPER GI ENDOSCOPY, EXAM 12/04/2010 UPPER GI ENDOSCOPY performed by DEE WRIGHT at [facility] Family History Problem Relation Age [...] [facility]Non-Drug; Combo Route) route daily. (Patient not taking: [...] were performed on 02/26/2021 at [facility] which showed healing distal fibula fracture with [...] with this approach. Please refer to the [employer] [employer] website at [email or web address], the patient information section. Click on the shoulder and it will direct you to information regarding your injury. Discussed with patient indications for prompt return or to call the clinic if they have any questions, otherwise they will follow-up as needed and with their PCP as scheduled. Marcin Mneezes PA-C documented in this encounter Plan of Treatment Scheduled Referrals Name Type Priority Associated Diagnoses Order Schedule Referral to Orthopaedics Outpatient Referral Routine Chronic pain of right ankle Ordered: 12/17/2020 documented as of this encounter Visit Diagnoses Diagnosis Chronic pain of right ankle documented in this encounter Care Teams Agricultural Lender Relationship Specialty Start Date End Date Hoang Castellanos, SAM [address] [place] [address] PCP - General Family Medicine 03/12/20 documented as of this encounter
--- OUTSIDE RECORDS SUMMARY | 2024-08-07 14:09 | XMS_ITS | Encounter Summary ---
Author Organization [facility] [place] [address] Care Team Providers Care Roustabout Hand Name Role Phone Hoang Castellanos APRN Primary Care Provider Reason for Referral * Consultation (Routine) - Closed Specialty Diagnoses / Procedures Referred By Contac t Referred To Contact Orthopaedics Diagnoses Chronic pain of right ankle Hoang Castellanos APRN [address] [place] [address] [facility] Orthopaedics 10 [place] [address] Referral ID Status Reason Start Date Expiration Date V isits Requested Visits Authorized [id number] Closed Specialty Service Requested 12/17/2020 12/17/2021 12 12 * Consultation (Routine) - Closed Specialty Diagnoses / Procedures Referred By Contac t Referred To Contact Neurology Diagnoses Right leg weakness Dizziness Hoang Castellanos APRN [address] [place] [address] [facility] Neurology [address] [place] [address] Referral ID Status Reason Start Date Expiration Date V isits Requested Visits Authorized [id number] Closed Specialty Service Requested 12/17/2020 12/17/2021 12 12 Reason for Visit * Reason Comments Hypertension Diabetes Encounter Details Date Type Department Care Team (Late st Contact Info) Description 12/15/2020 1:30 PM EDT Office Visit Primary Care at [facility] 10 [place] [address] Hoang Csatellanos, SAM [address] [place] [address] Benign essential hypertension; Cataract of right eye, [...] a 60 y.o. female presenting to the [facility] Primary Care [facility] Patient Due For: 1. [...] diagnsoed with dense cataract Awaiting appt at [facility] Ophthalmology Right wrist pain Hx of fracture [...] Edema documented in this encounter Care Teams Roustabout Hand Relationship Specialty Start Date End Date Hoang Castellanos APRN [address] [place] [address] PCP - General Family Medicine 03/12/20 documented as of this encounter
--- OUTSIDE RECORDS SUMMARY | 2024-08-07 14:09 | XMS_ITS | Encounter Summary ---
[place] [address] Care Team Providers Care Carroter Name Role Phone Hoang Castellanos APRN Primary Care Provider Encounter Details Date Type Department Care Team (Latest Contact Info) Description 02/26/2021 12:45 PM EDT Ancillary Procedure Radiology XRay at the [facility] at [facility] [address] [place] [address] Jose A Mejia MD [address] [place] [address] Chronic pain of right ankle Social History [...] therapist that requested your imaging first. ? Electronically signed by: Rinku Wilkins MD, [facility] ([phone]), at 02/26/2021 12:58 PM Narrative 02/26/2021 12:58 [...] physical therapist that requested your imaging first. Jose A Mejia MD IMG DX ORDERABLES documented in this encounter Visit Diagnoses Diagnosis Chronic pain of right ankle documented in this encounter Care Teams Carroter Relationship Specialty Start Date End Date Hoang Castellanos, DRIVER LICENSE EXAMINER [address] [place] [address] PCP - General Family Medicine 03/12/20 documented as of this encounter
--- OUTSIDE RECORDS SUMMARY | 2024-08-07 14:09 | XMS_ITS | Encounter Summary ---
[place] [address] Care Team Providers Care Digital Proofing And Platemaker Name Role Phone Hoang Castellanos APRN Primary Care Provider Reason for Visit * Reason Onset Date Comments Questions 02/27/2021 note clarificati on Encounter Details Date Type Department Care Team (Late st Contact Info) Description 02/27/2021 Telephone Orthopaedics at [facility] [address] [facility] [place] [phone] Irasema Chairez RN Questions (note clarification) Social [...] 1960 No relevant phone numbers on file. [phone] (home) Problem/Question: Celi from [facility] left a message stating that [...] filedocumented in this encounter Care Teams Digital Proofing And Platemaker Relationship Specialty Start Date End Date Hoang Castellanos, MEAT GRADING MACHINE OPERATOR [address] [place] [address] PCP - General Family Medicine 03/12/20 documented as of this encounter
--- OUTSIDE RECORDS SUMMARY | 2024-08-07 14:09 | XMS_ITS | Encounter Summary ---
[place] [address] Care Team Providers Care Documentation Clerk Name Role Phone Hoang Castellanos APRN Primary Care Provider Encounter Details Date Type Department Care Team (Late st Contact Info) Description 04/14/2021 3:00 PM EDT TH Visit (TeleHealth) [place] [address] Altagracia Pereira MD [facility] [place] [address] Myelopathy; Weakness of both lower limbs; Bilateral [...] ??? Osteoporosis Overview Note: DEXA done at [facility] on 10/29/15: osteoporosis at the [...] needed for Chest pain. Miscellaneous Medical Supply [facility] 1 walker on wheels with seat ibuprofen (Advil;Motrin) 800 mg Tablet Take 1 tablet by mouth every 8 hours as needed for Pain. sertraline (ZOLOFT) 100 mg Tablet Take 2 tablets by mouth 2 times daily. multivitamin (THERAGRAN) Tablet Take 1 tablet by mouth daily. lancets 30 gauge [facility] 1 each by [facility].(Non-Drug; Combo Route) route daily. ARIPiprazole (Abilify) 5 [...] as is her preference. ALTAGRACIA PEREIRA MD [facility] Chemical Applicator, Neuromuscular Medicine [facility] 04/13/21 11:50 PM Patient provided verbal consent [...] gait documented in this encounter Care Teams Documentation Clerk Relationship Specialty Start Date End Date Hoang Castellanos, REGIONAL ENGAGEMENT CONSULTANT [address] [place] [address] PCP - General Family Medicine 03/12/20 documented as of this encounter
--- OUTSIDE RECORDS SUMMARY | 2024-08-07 14:09 | XMS_ITS | Encounter Summary ---
Author Organization [facility] Address [facility] [place] [address] Care Team Providers Care Garbage Worker Name Role Phone Hoang Castellanos APRN Primary Care Provider [phone] Encounter Details Date Type Department Care Team (Late st Contact Info) Description 04/08/2021 [place] [address] Campos Puente MD [facility] [address] Social History Tobacco Use Types Packs/Day Years [...] - 06/02/2021 3:11 PM EST Angela from [facility] calling to provide fax number. * Telephone Encounter - Marli Hernández - 06/02/2021 2:23 PM EST Per PAB schedule TOV with Pt and siblings for Saturday 06/09 at 2pm LM for [facility] Analysis Tester Angela to provide fax # to fax [...] and Anesthesia consult. * Telephone Encounter - Malri Hernández - 04/16/2021 8:26 AM EDT Pt [...] April 07, 2021 ??5:17 PM To: [facility] [place] Neurosurgery Campground Attendant ?? Message Needs cardiology W/U; PAT consult and schedule for surgery: C5/6 and 6/& ACDF documented in this encounter Plan of Treatment Not on file documented as of this encounter Visit Diagnoses Not on filedocumented in this encounter Care Teams Garbage Worker Relationship Specialty Start Date End Date Hoang Castellanos APRN [address] [place] [address] PCP - General Family Medicine 03/12/20 documented as of this encounter
--- OUTSIDE RECORDS SUMMARY | 2024-08-07 14:09 | XMS_ITS | Encounter Summary ---
Author Organization [facility] [place] [address] Care Team Providers Care Ppa Teacher Name Role Phone Hoang Castellanos APRN Primary Care Provider [phone] Reason for Visit * Reason Comments Medication Refill Encounter Details Date Type Department Care Team (Late st Contact Info) Description 02/16/2021 Refill Primary Care at [facility] 10 [place] [phone] Hoang Castellanos APRN [address] [facility] [place] [address] Coronary artery disease involving [place] coronary artery of [place] heart without angina pectoris Social History Tobacco [...] Visit Diagnoses Diagnosis Coronary artery disease involving [place] coronary artery of [place] heart without angina pectoris documented in this encounter Care Teams Ppa Teacher Relationship Specialty Start Date End Date Hoang Castellanos, SAM [address] [place] [address] PCP - General Family Medicine 03/12/20 documented as of this encounter
--- OUTSIDE RECORDS SUMMARY | 2024-08-07 14:09 | XMS_ITS | Encounter Summary ---
[place] [address] Care Team Providers Care Strawhat Blocking Operator Name Role Phone Hoang Castellanos APRN Primary Care Provider [phone] Encounter Details Date Type Department Care Team (Late st Contact Info) Description 04/07/2021 [place] [address] Gurjit Bass MD [facility] [place] [address] Seizures; Myelopathy; Bipolar affective disorder, remission status [...] MD HEMATOLOGY ORDERABLE S Performing Organization Address City/[facility]/ZIP Co [place] [address] * Lyme IgG & IgM Antibody (2021 10:54 AM EDT) Lyme Antibody Neg Neg [facility] Blood 2021 10:5 4 AM EDT 05/28/2021 6:53 AM EDT Narrative Resulting Agency Comment Spec In Lab Gurjit Bass MD IMMUNOLOGY ORDERABLE S [facility] [place] [address] * TSH (2021 10:54 AM EDT) Thyroid Stimulating Hormone 2.40 0.27 - 4.20 mcIU/mL LABORATORY Comment: Reference Interval (mcIU/mL): Females: ??First Trimester: 0.23-3.88 ??Second Trimester: 0.22-3.90 ??Third Trimester: 0.44-4.66 Blood 2021 10:5 4 AM EDT 2021 11:55 AM EDT Narrative Resulting Agency Comment Spec In Lab Authorizing Provider Result Macy Bass MD CHEMISTRY ORDERABLES Performing Organization Address [facility] de Phone Number [facility] [address] [place] [address] * T4 Total (2021 10:54 AM EDT) T4 Total 8.2 5.3 - 11.6 mcg/dL LABORATORY Comment: Reference Interval (mcg/dL): Females: ??First Trimester: 6.3-13.5 ??Second Trimester: 7.1-14.3 ??Third Trimester: 6.9-14.1 Blood 2021 10:5 4 AM EDT 2021 11:55 AM EDT Narrative Resulting Agency Comment Spec In Lab Authorizing Provider Result Macy Bass MD CHEMISTRY ORDERABLES Performing Organization Address [facility] de Phone Number [facility] [address] [place] [address] * (ABNORMAL) Comprehensive metabolic panel (non-fasting) (2021 [...] Bass MD CHEMISTRY ORDERABLES LABORATORY [address] [place] [address] * Vitamin B12 (2021 10:54 AM EDT) Vitamin B12 1,017 232 - 1,245 pg/mL [facility] Blood 2021 10:5 4 AM EDT 2021 4:48 PM EDT Narrative Resulting Agency Comment Spec In Lab Gurjit Bass MD CHEMISTRY ORDERABLES Performing Organization Address [facility] Co de Phone Number [facility] [place] [address] * Lamotrigine Lvl (2021 10:54 AM EDT) Lamotrigine Lvl (NOVEMBER) 3.7 2.5 - 15.0 mcg/mL [facility] Comment: ADDITIONAL INFORMATION This test was developed and its performance characteristics determined by [facility] in a manner consistent with CLIA requirements. This test has not been cleared or approved by the U.S. Food and Drug Administration. Test Performed by: [facility] [address] [place] [address] Application Tester: Skinny Reyes M.D. Ph.D.; CLIA# [id number] Blood 2021 10:5 4 AM EDT 2021 4:54 PM EDT Narrative Resulting Agency Comment Spec In Lab Gurjit Bass MD LAB SEND OUT ORDERAB LES Performing Organization Address City/[facility] Co de Phone Number [facility] [address] [place] [address] documented in this encounter Visit Diagnoses Diagnosis Seizures Other convulsions Myelopathy Unspecified disease of spinal cord Bipolar affective disorder, remission status unspecified documented in this encounter Care Teams Strawhat Blocking Operator Relationship Specialty Start Date End Date Hoang Castellanos, SUPERVISOR WOOL SHEARING [address] [place] [address] PCP - General Family Medicine 03/12/20 documented as of this encounter
--- OUTSIDE RECORDS SUMMARY | 2024-08-07 14:09 | XMS_ITS | Encounter Summary ---
Author Organization [facility] Address [facility] [place] [address] Care Team Providers Care Staff Climate Scientist Name Role Phone Mark Holguin APRN Primary Care Provider Reason for Referral * Consultation (Routine) - Closed Specialty Diagnoses / Procedures Referred By Vanita dimas Referred To Contact Neurology Diagnoses Intracranial hypertension Mark Holguin APRN [address] [facility] [place] [address] Gurjit Bass MD [facility] [place] [address] Referral ID Status Reason Start Date Expiration Date V isits Requested Visits Authorized [id number] Closed Specialty Service Requested 02/09/2021 02/09/2022 12 12 Reason for Visit * Reason Onset Date Comments Referral 02/09/2021 Encounter Details Date Type Department Care Team (Late Contact Info) Description 02/09/2021 Telephone Primary Care at [facility] 10 [place] [address] Minerva Calderón RN Referral Social History Tobacco [...] meantime, she had reached out to her [facility] welfare case worker Alondrashania left a VM on the PCP nurse's line to follow up on the referral request. Patient states she is trying to work on not becoming frustrated so easily. Jeannie asked me to reach out to Angela to inform her of the update that the referral was placed. Left VM for Angela at [facility], advised the requested referral has [...] hypertension documented in this encounter Care Teams Staff Climate Scientist Relationship Specialty Start Date End Date Mark Holguin, DIRECTOR OF SALES AND MARKETING [address] [place] [address] PCP - General Family Medicine 03/12/20 documented as of this encounter
--- OUTSIDE RECORDS SUMMARY | 2024-08-07 14:09 | XMS_ITS | Encounter Summary ---
[place] [address] Care Team Providers Care Movement Therapist Name Role Phone Hoang Castellanos APRN Primary Care Provider [phone] Encounter Details Date Type Department Care Team (Late st Contact Info) Description 04/13/2021 Telephone [place] [address] Marli Hernández Social History Tobacco Use Types [...] - 04/13/2021 1:44 PM EDT Jeannie Rico [id number] Caller: Symone RITCHIE from [facility] is out in the field. I spoke with Melania JUNG from the [facility] Reason for call: I let Melania know [...] caller: anytime Best number to reach caller: [phone] Reason for call: Calling to confirm if [...] on filedocumented in this encounter Care Teams Movement Therapist Relationship Specialty Start Date End Date Hoang Castellanos APRN [address] [place] [address] PCP - General Family Medicine 03/12/20 documented as of this encounter
--- OUTSIDE RECORDS SUMMARY | 2024-08-07 14:10 | XMS_ITS | Encounter Summary ---
[place] [address] Care Team Providers Care International Sales Manager Name Role Phone Hoang Castellanos APRN Primary Care Provider Encounter Details Date Type Department Care Team (Late st Contact Info) Description 07/04/2020 Telephone Primary Care at [facility] [address] [place] [phone] Isadora Hidalgo LPN Social History Tobacco Use [...] 07/03/20 Name and phone of Emergency Room: [place], [place] [phone] Name of Emergency Room Provider? Nilam Blair [...] at 3:30 Jeannie requested that her case reviewer be part of this appointment documented in this encounter Plan of Treatment Not on file documented as of this encounter Visit Diagnoses Not on filedocumented in this encounter Care Teams International Sales Manager Relationship Specialty Start Date End Date Hoang Castellanos, LAWN MOWER [address] [place] [address] PCP - General Family Medicine 03/12/20 documented as of this encounter
--- OUTSIDE RECORDS SUMMARY | 2024-08-07 14:10 | XMS_ITS | Encounter Summary ---
Author Organization [place] [address] Care Team Providers Care Call Center Analyst Name Role Phone Hoang Castellanos APRN Primary Care Provider Encounter Details Date Type Department Care Team (Late st Contact Info) Description 07/03/2020 12:30 PM EST Ancillary Procedure Radiology Xray at [facility] [place] [address] Social History Tobacco Use Types [...] No acute displaced rib fractures. Procedure Note Motny Sams DO - 07/03/2020 EXAMINATION: XR CHEST [...] on filedocumented in this encounter Care Teams Call Center Analyst Relationship Specialty Start Date End Date Hoang Castellanos APRN [address] [facility] [place] [address] PCP - General Family Medicine 03/12/20 documented as of this encounter
--- OUTSIDE RECORDS SUMMARY | 2024-08-07 14:10 | XMS_ITS | Encounter Summary ---
Author Organization [facility] [place] [address] Care Team Providers Care Assistant Store Manager Name Role Phone Hoang Castellanos APRN Primary Care Provider Encounter Details Date Type Department Care Team (Late st Contact Info) Description 07/14/2020 [place] [address] Chidi Dow MD [facility] [place] [address] Social History Tobacco Use Types Packs/Day Years [...] filedocumented in this encounter Care Teams Assistant Store Manager Relationship Specialty Start Date End Date Hoang Castellanos APRN [address] [place] [address] PCP - General Family Medicine 03/12/20 documented as of this encounter
--- OUTSIDE RECORDS SUMMARY | 2024-08-07 14:10 | XMS_ITS | Encounter Summary ---
Author Organization [facility] Address [facility] [place] [address] Care Team Providers Care Investigative Research Specialist Name Role Phone Hoang Castellanos APRN Primary Care Provider Reason for Referral * Consultation (Routine) - Closed Specialty Diagnoses / Procedures Referred By Contac t Referred To Contact Cardiology Diagnoses Coronary artery disease involving duckwater coronary artery of duckwater heart without angina pectoris CAD - Coronary artery disease involving duckwater coronary artery of duckwater heart without angina pectoris *[facility] Hoang Castellanos APRN [address] [place] [address] Freddy Mejias MD [facility] [address] Referral ID Status Reason Start Date Expiration Date V isits Requested Visits Authorized [id number] Closed Consult, Test & Treat 07/16/2020 07/16/2021 6 6 * Diagnostic Test (Routine) - Closed Specialty Diagnoses / Procedures Referred By Contac t Referred To Contact Radiology Diagnoses Dizziness Procedures MRI Brain wwo Contrast (Generic) Hoang Castellanos APRN [address] [place] [address] [facility] [address] [place] [address] Referral ID Status Reason Start Date Expiration Date V isits Requested Visits Authorized [id number] Closed Specialty Service Requested 07/14/2020 01/12/2022 1 1 Reason for Visit * Reason Comments Follow-up ER Visit Encounter Details Date Type Department Care Team (Latest Contact Info) Description 07/14/2020 3:30 PM EST TH Visit (TeleHealth) Primary Care at [address] [address] Hoang Castellanos APRN 10 [facility] [place] [address] Dizziness; Sprain of right ankle, unspecified ligament, subsequent encounter; Generalized weakness; Benign essential hypertension; Coronary artery disease involving duckwater coronary artery of duckwater heart without angina pectoris Social History Tobacco [...] - 07/14/2020 3:30 PM EST [facility] [...] Medications and allergies reconciled. Yes. Subjective: HPI: Jenanie Rico is a 60 y.o. female Due to public health emergency this visit was conducted as a telehealth encounter. Confirmed that patient consents to visit. Jeannie Rico is a 60 y.o. female who comes in today to follow up after a recent emergency room visit. Jeannie Rico was seen at [facility] emergency room on 07/03/2020 for Right [...] Benign essential hypertension Coronary artery disease involving duckwater coronary artery of duckwater heart without angina pectoris - Referral to [...] Outpatient Referral Routine Coronary artery disease involving duckwater coronary artery of duckwater heart without angina pectoris Ordered: 07/16/2020 documented [...] Essential hypertension, benign Coronary artery disease involving duckwater coronary artery of duckwater heart without angina pectoris Dizziness Dizziness and giddiness documented in this encounter Care Teams Investigative Research Specialist Relationship Specialty Start Date End Date Hoang Castellanos APRN [address] [place] [address] PCP - General Family Medicine 03/12/20 documented as of this encounter
--- OUTSIDE RECORDS SUMMARY | 2024-08-07 14:10 | XMS_ITS | Encounter Summary ---
[place] [address] Care Team Providers Care Spinner Tender Name Role Phone Hoang Castellanos APRN Primary Care Provider Encounter Details Date Type Department Care Team (Late st Contact Info) Description 07/07/2020 Telephone Primary Care at [facility] 10 [place] [phone] Isadora Hidalgo LPN Social History Tobacco Use [...] on filedocumented in this encounter Care Teams Spinner Tender Relationship Specialty Start Date End Date Hoang Castellanos, BAR GAUGER AND LUBRICATOR TENDER [address] [place] [address] PCP - General Family Medicine 03/12/20 documented as of this encounter
--- OUTSIDE RECORDS SUMMARY | 2024-08-07 14:10 | XMS_ITS | Encounter Summary ---
[place] [address] Care Team Providers Care Educational Technologist Name Role Phone Hoang Castellanos APRN Primary Care Provider [phone] Encounter Details Date Type Department Care Team (Late st Contact Info) Description 10/08/2020 Telephone Primary Care at [facility] 10 [place] [phone] Shannon Cruz RN Social History Tobacco Use [...] get out of the appt. Talked to [facility] PT, they are trying to help with [...] and dark urine. She is asking for [facility] RN to come in for BP monitoring [...] tract infection, submit a new specimen. (A) [facility] Urine specimen obtained by clean catch procedure (specimen) 10/14/2020 10:20 AM EDT 10/14/2020 4:00 PM EDT Narrative Resulting Agency Comment Spec In Lab Hoang Castellanos APRN MICROBIOLOGY - GENER AL ORDERABLES [facility] [place] [address] * (ABNORMAL) _Urinalysis with microscopic (10/14/2020 10:20 [...] Appearance, Urine Dipstick Slightly Cloudy LABORATORY Specific [place] [facility] Automated 1.020 1.006 - 1.030 LABORATORY [...] Agency Comment Spec In Lab Hoang Castellanos RITUAL CIRCUMCISER [facility] ORDER[facility]LES [facility] 10 [place] [address] documented in this encounter Visit Diagnoses Diagnosis Foul smelling urine Other nonspecific finding on examination of urine documented in this encounter Care Teams Educational Technologist Relationship Specialty Start Date End Date Hoang Castellanos, RITUAL CIRCUMCISER [address] [place] [address] PCP - General Family Medicine 03/12/20 documented as of this encounter
--- OUTSIDE RECORDS SUMMARY | 2024-08-07 14:10 | XMS_ITS | Encounter Summary ---
[place] [address] Care Team Providers Care Quarter Lining Smoother Name Role Phone Hoang Castellanos APRN Primary Care Provider Encounter Details Date Type Department Care Team (Late st Contact Info) Description 12/09/2020 Telephone Primary Care at [facility] 10 [facility] [place] [phone] Hoang Castellanos APRN [address] [place] [address] Social History Tobacco Use Types Packs/Day Years [...] Calderón RN - 12/09/2020 5:01 PM EDT FURNACE MAINTENANCE came to triage office to report patient is scheduled for OV tomorrow for loss of sight right eye, PMH DM. She states per provider Anthony Carrington APRN, patient needs to be triaged further for stroke assessment. Call to patient for further triage. Left detailed VM to call provider condenser setter via answering servicefor further triage. Advised DH ED or call 911 if sudden partial or total vision loss, change in speech, weakness, facial droop, confusion, dizziness. ED for severe eye pain. Will send myDH message as well. documented in this encounter Plan of Treatment Not on file documented as of this encounter Visit Diagnoses Not on filedocumented in this encounter Care Teams Quarter Lining Smoother Relationship Specialty Start Date End Date Hoang Castlelanos, DERMATOLOGIST [address] [place] [address] PCP - General Family Medicine 03/12/20 documented as of this encounter
--- OUTSIDE RECORDS SUMMARY | 2024-08-07 14:10 | XMS_ITS | Encounter Summary ---
[place] [address] Care Team Providers Care Occupational Therapy Assistant Name Role Phone Hoang Castellanos APRN Primary Care Provider [phone] Reason for Visit * Reason Onset Date Comments Results 10/14/2020 Encounter Details Date Type Department Care Team (Late st Contact Info) Description 10/14/2020 Telephone Primary Care at [facility] 10 [facility] [place] [phone] Shannon Chung, RN Results Social History Tobacco [...] also inform patient that she can call [facility] to start the process for EMS [...] Yesterday Message Contents Hoang Castellanos APRN P [facility] Primary Care Nurse Please inform patient of [...] filedocumented in this encounter Care Teams Occupational Therapy Assistant Relationship Specialty Start Date End Date Hoang Castellanos APRN [address] [place] [address] PCP - General Family Medicine 03/12/20 documented as of this encounter
--- OUTSIDE RECORDS SUMMARY | 2024-08-07 14:10 | XMS_ITS | Encounter Summary ---
[place] [address] Care Team Providers Care Side Panel Padder Name Role Phone Hoang Castellanos APRN Primary Care Provider [phone] Encounter Details Date Type Department Care Team (Late st Contact Info) Description 10/13/2020 Telephone Primary Care at [facility] 10 [place] [phone] Shannon Cruz, RN Social History Tobacco Use [...] 11:06 AM EDT Collette RN called from [facility] in regards to Jeannie Lawson Trisha. She is asking if patient needs labs and urine. Let nurse know we needed both. documented in this encounter Plan of Treatment Not on file documented as of this encounter Visit Diagnoses Not on filedocumented in this encounter Care Teams Side Panel Padder Relationship Specialty Start Date End Date Hoang Castellanos, HEAVY MACHINERY ASSEMBLER [address] [place] [address] PCP - General Family Medicine 03/12/20 documented as of this encounter
--- OUTSIDE RECORDS SUMMARY | 2024-08-07 14:10 | XMS_ITS | Encounter Summary ---
Author Organization [facility] [place] [address] Care Team Providers Care Brim Pouncer Name Role Phone Hoang Castellanos APRN Primary Care Provider Encounter Details Date Type Department Care Team (Latest Contact Info) Description 10/10/2020 1:00 PM EDT TH Visit (TeleHealth) Primary Care at [facility] 10 [facility] [place] [phone] Hoang Castellanos APRN 10 [facility] [place] [address] Type 2 diabetes mellitus without complication, without [...] - 10/10/2020 1:00 PM EDT [facility] Telehealth Encounter Nurse Call: Patient called to notify of telehealth visit in lieu of office/home visit due to public health emergency. For patients in facilities or with caregivers, these were also notified. BEST PHONE NUMBER: [phone] Is this a cell phone number: no [...] wheelchair, getting a ramp and travel size utooter [facility] with Cardiology on 10/01-Dr. Timothy Haynes Planning to do Zio patch and Echo RECOVER program in [facility] helping her build a ramp Right now [...] fall risk. She was instructed to call [facility] to start working with them for EMS [...] Vitamin B12 1,085 232 - 1,245 pg/mL [facility] Blood specimen (specimen) 10/14/2020 10:20 AM EDT 10/14/2020 4:28 PM EDT Narrative Resulting Agency Comment Spec In Lab Britnikeri Trinidad Emanuel VARGAS CHEMISTRY ORDERABLES [facility] [place] [address] * Vitamin D, 25-Hydroxy (10/14/2020 10:20 AM EDT) Vitamin D Total 25 OH 54 21 - 100 ng/mL [facility] Vit D Interp Sufficient [facility] Blood specimen (specimen) 10/14/2020 10:20 AM EDT 10/14/2020 4:28 PM EDT Narrative Resulting Agency Comment Spec In Lab Hoang Castellanos APRN CHEMISTRY ORDERABLES Performing Organization Address City/[facility]/ZIP Co de Phone Number [facility] [place] [address] * Iron and TIBC (10/14/2020 10:20 AM EDT) Iron 67 30 - 150 mcg/dL [facility] TIBC 342 250 - 450 mcg/dL [facility] Iron Saturation 20 20 - 50 % [facility] Blood specimen (specimen) 10/14/2020 10:20 AM EDT 10/14/2020 1:58 PM EDT Narrative Resulting Agency Comment Spec In Lab Hoang Vivi Emanuel WOLFN CHEMISTRY ORDERABLES [facility] [address] [place] [address] * Ferritin (10/14/2020 10:20 AM EDT) Ferritin 60 30 - 400 ng/mL [facility] Comment: Pediatric reference ranges not verified at [facility], interpret with caution. Reference ranges for females greater than 50 years of age approach values for men, i.e., 30-400 ng/mL. Blood specimen (specimen) 10/14/2020 10:20 AM EDT 10/14/2020 11:15 AM EDT Narrative Resulting Agency Comment Spec In Lab Hoang Castellanos APRN CHEMISTRY ORDERABLES Performing Organization Address City/[facility]/ZIP Co de Phone Number [facility] [address] [place] [address] * TSH (10/14/2020 10:20 AM EDT) [facility] Thyroid Stimulating Hormone 1.96 0.27 - 4.20 mcIU/mL [facility] Blood specimen (specimen) 10/14/2020 10:20 AM EDT 10/14/2020 11:15 AM EDT Narrative Resulting Agency Comment Spec In Lab Hoang Castellanos APRN CHEMISTRY ORDERABLES Performing Organization Address [facility] Co de Phone Number [facility] [address] [place] [address] * (ABNORMAL) Hemoglobin A1c (10/14/2020 10:20 AM EDT) [facility] Hemoglobin A1c 5.7(H) 4.3 - 5.6 % [facility] Estimated Average Glucose 117 mg/dL [facility] Blood specimen (specimen) 10/14/2020 10:20 AM EDT 10/14/2020 11:15 AM EDT Narrative Resulting Agency Comment Spec In Lab Hoang Castellanos APRN CHEMISTRY ORDERABLES Performing Organization Address City/[facility] Co de Phone Number [facility] [address] [place] [address] * (ABNORMAL) CMP w/fasting Glucose (10/14/2020 10:20 AM EDT) [facility] Glucose Fasting 88 65 - 99 mg/dL [facility] Comment: ?Fasting* Glucose Interpretive Criteria Normal [...] of Diabetes Mellitus, Position Statement from the [place] [employer]. ??Diabetes Care, Volume 33, Supplement 1, Jul 2009 Blood Urea Nitrogen 21(H) 8 - 18 mg/dL [facility] Creatinine 0.72 0.70 - 1.20 mg/dL [facility] Sodium 138 135 - 145 mmol/L [facility] Potassium 4.1 3.5 - 5.0 mmol/L [facility] Comment: Please note: ??Patients with WBC >100,000 may have falsely elevated Potassium levels. ??For accurate Potassium quantification in these patients send serum separator tube (gold top) for subsequent determinations. ??Contact the Clinical Chemistry Laboratory if there are any questions. Chloride 99 98 - 107 mmol/L [facility] Carbon Dioxide 28 22 - 31 mmol/L [facility] Anion Gap 11 5 - 15 mmol/L [facility] Calcium 9.5 8.5 - 10.5 mg/dL [facility] Protein, Total 6.9 6.1 - 8.0 gm/dL [facility] Albumin 4.1 3.2 - 5.2 gm/dL [facility] Aspartate Aminotransferase 11 0 - 30 unit/L [facility] Alanine Aminotransferase 6 0 - 30 unit/L [facility] Alkaline Phosphatase 108(H) 35 - 105 unit/L [facility] Bilirubin, Total 0.3 0.2 - 1.3 mg/dL [facility] Est Glomerular Filtration Rate 91 >=60 [...] Castellanos APRN CHEMISTRY ORDERABLES Performing Organization Address City/State/[facility] Co de Phone Number [facility] [address] [place] [address] documented in this encounter Visit Diagnoses Diagnosis Type 2 diabetes mellitus without complication, without long-term current use of insulin Benign essential hypertension Essential hypertension, benign Dizziness Dizziness and giddiness Hypothyroidism, acquired Unspecified hypothyroidism Vitamin B12 deficiency Other B-complex deficiencies Vitamin D deficiency Unspecified vitamin D deficiency Iron deficiency anemia, unspecified iron deficiency anemia type documented in this encounter Care Teams Brim Pouncer Relationship Specialty Start Date End Date Hoang Castellanos APRN [address] [place] [address] PCP - General Family Medicine 03/12/20 documented as of this encounter
--- OUTSIDE RECORDS SUMMARY | 2024-08-07 14:10 | XMS_ITS | Encounter Summary ---
[place] [address] Care Team Providers Care Snack Steward Name Role Phone Hoang Castellanos APRN Primary Care Provider Encounter Details Date Type Department Care Team (Late st Contact Info) Description 07/15/2020 Telephone Primary Care at [facility] 10 [place] [phone] Isadora Hidalgo LPN Social History Tobacco Use [...] LPN - 07/15/2020 9:58 AM EST 07/14 [facility] called to report b/p for 07/09 140/80 07/11 136/70 07/14 154/80 documented in this encounter Plan of Treatment Not on file documented as of this encounter Visit Diagnoses Not on filedocumented in this encounter Care Teams Snack Steward Relationship Specialty Start Date End Date Hoang Castellanos, WORSHIP PASTOR [address] [place] [address] PCP - General Family Medicine 03/12/20 documented as of this encounter
--- OUTSIDE RECORDS SUMMARY | 2024-08-07 14:10 | XMS_ITS | Encounter Summary ---
Author Organization [facility] [place] [address] Care Team Providers Care Display Designer Name Role Phone Hoang Castellanos APRN Primary Care Provider Reason for Visit * Reason Onset Date Comments Other 10/07/2020 Encounter Details Date Type Department Care Team (Late st Contact Info) Description 10/07/2020 Telephone Cardiology at [address] [phone] Devi Thomson, RN Other Social History Tobacco [...] on filedocumented in this encounter Care Teams Display Designer Relationship Specialty Start Date End Date Hoang Castellanos, SAM [address] [place] [address] PCP - General Family Medicine 03/12/20 documented as of this encounter
--- OUTSIDE RECORDS SUMMARY | 2024-08-07 14:10 | XMS_ITS | Encounter Summary ---
[place] [address] Care Team Providers Care Emt I/85 Name Role Phone Hoang Castellanos APRN Primary Care Provider Encounter Details Date Type Department Care Team (Late st Contact Info) Description 07/16/2020 Telephone Primary Care at [facility] 10 [facility] [place] [phone] Isadora Hidalgo LPN Social History Tobacco Use [...] on filedocumented in this encounter Care Teams Emt I/85 Relationship Specialty Start Date End Date Hoang Castellanos APRN [address] [place] [address] PCP - General Family Medicine 03/12/20 documented as of this encounter
--- OUTSIDE RECORDS SUMMARY | 2024-08-07 14:10 | XMS_ITS | Encounter Summary ---
[place] [address] Care Team Providers Care Inweaver Name Role Phone Hoang Castellanos APRN Primary Care Provider Encounter Details Date Type Department Care Team (Late st Contact Info) Description 07/09/2020 Telephone Primary Care at [facility] 10 [place] [phone] Isadora Hidalgo LPN Social History Tobacco Use [...] on filedocumented in this encounter Care Teams Inweaver Relationship Specialty Start Date End Date Hoang Castellanos, MANAGER PSYCHIATRY [address] [place] [address] PCP - General Family Medicine 03/12/20 documented as of this encounter
--- OUTSIDE RECORDS SUMMARY | 2024-08-07 14:10 | XMS_ITS | Encounter Summary ---
[place] [address] Care Team Providers Care Sports Recruiter Name Role Phone Hoang Castellanos APRN Primary Care Provider Encounter Details Date Type Department Care Team (Late st Contact Info) Description 10/15/2020 Telephone Primary Care at [facility] 10 [facility] [place] [phone] Shannon Cruz, RN Social History Tobacco Use [...] filedocumented in this encounter Care Teams Sports Recruiter Relationship Specialty Start Date End Date Hoang Castellanos, SAM [address] [place] [address] PCP - General Family Medicine 03/12/20 documented as of this encounter
--- OUTSIDE RECORDS SUMMARY | 2024-08-07 14:10 | XMS_ITS | Encounter Summary ---
Author Organization [facility] [place] [address] Care Team Providers Care Anatomic Pathology Manager Name Role Phone Hoang Castellanos APRN Primary Care Provider Reason for Visit * Reason Comments Medication Refill Encounter Details Date Type Department Care Team (Late st Contact Info) Description 10/27/2020 Refill Primary Care at [facility] [address] [facility] [place] [phone] Hoang Castellanos APRN [address] [place] [address] Social History Tobacco Use Types Packs/Day Years [...] on filedocumented in this encounter Care Teams Anatomic Pathology Manager Relationship Specialty Start Date End Date Hoang Castellanos APRN [address] [place] [address] PCP - General Family Medicine 03/12/20 documented as of this encounter
--- OUTSIDE RECORDS SUMMARY | 2024-08-07 14:10 | XMS_ITS | Encounter Summary ---
Author Organization [facility] [place] [address] Care Team Providers Care Tong Hooker Name Role Phone Hoang Castellanos APRN Primary Care Provider Encounter Details Date Type Department Care Team (Late st Contact Info) Description 07/03/2020 12:25 PM EST Ancillary Procedure Radiology Xray at [facility] [place] [address] Social History Tobacco Use Types [...] on filedocumented in this encounter Care Teams Tong Hooker Relationship Specialty Start Date End Date Hoang Castellanos APRN [address] [place] [address] PCP - General Family Medicine 03/12/20 documented as of this encounter
--- OUTSIDE RECORDS SUMMARY | 2024-08-07 14:10 | XMS_ITS | Encounter Summary ---
[place] [address] Care Team Providers Care Front Desk Associate Name Role Phone Hoang Castellanos APRN Primary Care Provider Encounter Details Date Type Department Care Team (Late st Contact Info) Description 08/28/2020 Telephone Primary Care at [facility] 10 [place] [phone] Shannon Chung, RN Social History Tobacco Use [...] 3:21 PM EST CROW Alatorre called from [facility] in regards to Jeannie Renny Rico. Update: visiting nurses called in vitals. 08/28/20: BP 156/88, HR 55 08/22/20: BP 164/93 BP Readings from Last 3 Encounters: 07/14/20 150/80 07/03/20 139/65 04/03/20 125/69 documented in this encounter Plan of Treatment Not on file documented as of this encounter Visit Diagnoses Diagnosis Benign essential hypertension Essential hypertension, benign documented in this encounter Care Teams Front Desk Associate Relationship Specialty Start Date End Date Hoang Castellanos APRN [address] [place] [address] PCP - General Family Medicine 03/12/20 documented as of this encounter
--- OUTSIDE RECORDS SUMMARY | 2024-08-07 14:10 | XMS_ITS | Encounter Summary ---
Author Organization [facility] [place] [address] Care Team Providers Care Director Of Entertainment Name Role Phone Hoang Castellanos APRN Primary Care Provider Reason for Visit * Reason Comments Medication Refill Encounter Details Date Type Department Care Team (Late st Contact Info) Description 09/30/2020 Refill Primary Care at [facility] [address] [place] [place] [phone] Hoang Castellanos APRN [address] [facility] [place] [address] Gastroesophageal reflux disease Social History Tobacco Use [...] Future Appt: Visit date not found Pharmacy: [place] Last rx: 10/29/2019: 56 tablets/capsules, 11 refills documented in this encounter Plan of Treatment Not on file documented as of this encounter Visit Diagnoses Diagnosis Gastroesophageal reflux disease Esophageal reflux documented in this encounter Care Teams Director Of Entertainment Relationship Specialty Start Date End Date Hoang Castellanos, LINEN FOLDER [address] [place] [place] [address] PCP - General Family Medicine 03/12/20 documented as of this encounter
--- OUTSIDE RECORDS SUMMARY | 2024-08-07 14:10 | XMS_ITS | Encounter Summary ---
Author Organization [facility] Address [facility] [place] [address] Care Team Providers Care Security Engineer Name Role Phone Hoang Castellanos APRN Primary Care Provider Reason for Referral * Home Health Care (Routine) - Closed Specialty Diagnoses / Procedures Referred By Contac t Referred To Contact Home Health Agency Diagnoses Benign essential hypertension Generalized weakness Hoang Castellanos APRN [address] [facility] [id number] Vis[facility] & [address] [address] Referral ID Status Reason Start Date Expiration Date V isits Requested Visits Authorized [id number] Closed Continuity of Care 07/07/2020 01/03/2021 1 1 Reason for Visit * Reason Onset Date Comments Triage 07/07/2020 Encounter Details Date Type Department Care Team ([facility] Contact Info) Description 07/07/2020 Telephone Primary Care at [facility] 10 [place] [address] Jeannie Luciano, forest economics professor Social History Tobacco Use Types Packs/Day Years [...] telehealth she has one tomorrow with her embedded case manager and wants RA to be part of [...] her medications for the day. Hoang Castellanos, DIRECT CARE SUPERVISOR to [facility] Primary Care Nurse ?? 07/07/20 [...] AM EST Pt called through triage because [facility] PT made a visit with her over [...] fatigue documented in this encounter Care Teams Security Engineer Relationship Specialty Start Date End Date Hoang Castellanos, SAM [address] [facility] [address] PCP - General Family Medicine 03/12/20 documented as of this encounter
--- OUTSIDE RECORDS SUMMARY | 2024-08-07 14:10 | XMS_ITS | Encounter Summary ---
Author Organization [facility] [place] [address] Care Team Providers Care Probate Lawyer Name Role Phone Hoang Castellanos APRN Primary Care Provider Encounter Details Date Type Department Care Team (Latest Contact Info) Description 10/14/2020 10:45 AM EDT - 10/14/2020 11:59 PM EDT Hospital Encounter Laboratory at [facility] [place] [address] Foul smelling urine; Vitamin B12 deficiency; Vitamin [...] 1 06/02/2020 12/01/2021 ibuprofen (Advil;Motrin) 800 mg TabletIndications:Technical Healthcare Consultant randell right-sided low back pain without sciatica [...] Comment Spec In Lab Britnikeri Trinidad Emanuel SPINNER CONCRETE PIPE HEMATOLOGY ORDERABLE S Performing Organization Address City/[facility]/ZIP Co de Phone Number LABORATORY 10 [place] [address] * (ABNORMAL) Hemogram (10/14/2020 10:20 AM EDT) [...] APRN HEMATOLOGY ORDERABLE S Performing Organization Address City/[facility]/ZIP Co de Phone Number LABORATORY [address] [place] [address] * (ABNORMAL) CMP w/fasting Glucose (10/14/2020 10:20 AM EDT) [facility] Glucose Fasting 88 65 - 99 mg/dL [facility] Comment: ?Fasting* Glucose Interpretive [...] of Diabetes Mellitus, Position Statement from the [place] [employer]. ??Diabetes Care, Volume 33, Supplement 1, Jul 2009 Blood Urea Nitrogen 21(H) 8 - 18 mg/dL [facility] Creatinine 0.72 0.70 - 1.20 mg/dL [email or web address] Sodium 138 135 - 145 mmol/L [facility] Potassium 4.1 3.5 - 5.0 mmol/L [email or web address] Comment: Please note: ??Patients with WBC >100,000 may have falsely elevated Potassium levels. ??For accurate Potassium quantification in these patients send serum separator tube (gold top) for subsequent determinations. ??Contact the Clinical Chemistry Laboratory if there are any questions. Chloride 99 98 - 107 mmol/L [facility] Carbon Dioxide 28 22 - 31 mmol/L [facility] Anion Gap 11 5 - 15 mmol/L [email or web address] Calcium 9.5 8.5 - 10.5 mg/dL [email or web address] Protein, Total 6.9 6.1 - 8.0 gm/dL [facility] Albumin 4.1 3.2 - 5.2 gm/dL [facility] Aspartate Aminotransferase 11 0 - 30 unit/L [facility] Alanine Aminotransferase 6 0 - 30 unit/L [email or web address] Alkaline Phosphatase 108(H) 35 - 105 [...] Castellanos APRN CHEMISTRY ORDERABLES Performing Organization Address [facility] Co de Phone Number [facility] [address] [place] [address] * (ABNORMAL) Hemoglobin A1c (10/14/2020 10:20 AM EDT) Hemoglobin A1c 5.7(H) 4.3 - 5.6 % LABORATORY Estimated Average Glucose 117 mg/dL [facility] Blood specimen (specimen) 10/14/2020 10:20 AM EDT 10/14/2020 11:15 AM EDT Narrative Resulting Agency Comment Spec In Lab Haong Castellanos APRN CHEMISTRY ORDERABLES Performing Organization Address City/[facility] Co de Phone Number [facility] [address] [place] [address] * TSH (10/14/2020 10:20 AM EDT) Thyroid Stimulating Hormone 1.96 0.27 - 4.20 mcIU/mL [facility] Blood specimen (specimen) 10/14/2020 10:20 AM EDT 10/14/2020 11:15 AM EDT Narrative Resulting Agency Comment Spec In Lab Hoang Castellanos APRN CHEMISTRY ORDERABLES Performing Organization Address City/[facility]/ZIP Co de Phone Number [facility] 10 [facility] [place] [address] * Ferritin (10/14/2020 10:20 AM EDT) [facility] Ferritin 60 30 - 400 ng/mL LABORATORY Comment: Pediatric reference ranges not verified at [facility], interpret with caution. Reference ranges for females greater than 50 years of age approach values for men, i.e., 30-400 ng/mL. Blood specimen (specimen) 10/14/2020 10:20 AM EDT 10/14/2020 11:15 AM EDT Narrative Resulting Agency Comment Spec In Lab Hoang Castellanos APRN CHEMISTRY ORDERABLES Performing Organization Address [facility]/ZIP Co de Phone Number [facility] [address] [facility] [place] [address] * Iron and TIBC (10/14/2020 10:20 AM EDT) [facility] Iron 67 30 - 150 mcg/dL LABORATORY TIBC 342 250 - 450 mcg/dL LABORATORY Iron Saturation 20 20 - 50 % [facility] Blood specimen (specimen) 10/14/2020 10:20 AM EDT 10/14/2020 1:58 PM EDT Narrative Resulting Agency Comment Spec In Lab Hoang Castellanos APRN CHEMISTRY ORDERABLES Performing Organization Address [facility]/ZIP Co de Phone Number [facility] [address] [place] [address] * Vitamin D, 25-Hydroxy (10/14/2020 10:20 AM EDT) [facility] Vitamin D Total 25 OH 54 21 - 100 ng/mL [facility] Vit D Interp Sufficient [facility] Blood specimen (specimen) 10/14/2020 10:20 AM EDT 10/14/2020 4:28 PM EDT Narrative Resulting Agency Comment Spec In Lab Hoang Trinidad Emanuel SPINNER CONCRETE PIPE CHEMISTRY ORDERABLES Performing Organization Address City/[facility]/ZIP Co de Phone Number [facility] [place] [address] * Vitamin B12 (10/14/2020 10:20 AM EDT) Vitamin B12 1,085 232 - 1,245 pg/mL [facility] Blood specimen (specimen) 10/14/2020 10:20 AM EDT 10/14/2020 4:28 PM EDT Narrative Resulting Agency Comment Spec In Lab Hoang Trinidad Emanuel WOLFN CHEMISTRY ORDERABLES Performing Organization Address City/[facility]/ZIP Co de Phone Number [facility] [place] [address] * (ABNORMAL) _Urinalysis with microscopic (10/14/2020 10:20 [...] Slightly Cloudy [facility] Specific [place] Urine Automated 1.020 1.006 - 1.030 LABORATORY [...] Castellanos APRN URINE ORDERABLES Performing Organization Address [facility] Co de Phone Number LABORATORY 10 [place] [address] * (ABNORMAL) Urine culture Clean Catch Urine (10/14/2020 10:20 AM EDT) Urine Culture 50,000-99,000 cfu/ml mixed mucosal jan Note: Culture shows multiple bacterial species suggesting mucosal contamination. If symptoms continue to indicate urinary tract infection, submit a new specimen. (A) [facility] Urine specimen obtained by clean catch procedure (specimen) 10/14/2020 10:20 AM EDT 10/14/2020 4:00 PM EDT Narrative Resulting Agency Comment Spec In Lab Hoang Castellanos APRN MICROBIOLOGY - GENER AL ORDERABLES Performing Organization Address City/[facility]/ZIP Co de Phone Number [facility] [place] [address] documented in this encounter Visit Diagnoses Diagnosis Foul smelling urine Other nonspecific finding on examination of urine Vitamin B12 deficiency Other B-complex deficiencies Vitamin D deficiency Unspecified vitamin D deficiency Iron deficiency anemia, unspecified iron deficiency anemia type Hypothyroidism, acquired Unspecified hypothyroidism Type 2 diabetes mellitus without complication, without long-term current use of insulin documented in this encounter Care Teams Probate Lawyer Relationship Specialty Start Date End Date Hoang Castellanos, SPINNER CONCRETE PIPE [address] [place] [address] PCP - General Family Medicine 03/12/20 documented as of this encounter
--- OUTSIDE RECORDS SUMMARY | 2024-08-07 14:10 | XMS_ITS | Encounter Summary ---
[place] [address] Care Team Providers Care Caisson Worker Name Role Phone Hoang Castellanos APRN Primary Care Provider Reason for Visit * Reason Onset Date Comments Eye Problem 12/10/2020 Sudden vision lo ss RE Encounter Details Date Type Department Care Team (Late st Contact Info) Description 12/10/2020 [place] [phone] Ilana Whittington MD [facility] [place] [address] Eye Problem (Sudden vision loss RE) Social [...] encounter, patient prefers to be seen at [facility] [place] [facility] which is appropriate for eye problem, however, given systemic issues patient is describing, PCP visit likely more time sensitive give possible symptoms of vascular changes/episodes. LVM for patient call back. documented in this encounter Plan of Treatment Not on file documented as of this encounter Visit Diagnoses Not on filedocumented in this encounter Care Teams Caisson Worker Relationship Specialty Start Date End Date Hoang Castellanos, DRAPERY AND UPHOLSTERY MEASURER [address] [place] [address] PCP - General Family Medicine 03/12/20 documented as of this encounter
--- OUTSIDE RECORDS SUMMARY | 2024-08-07 14:10 | XMS_ITS | Encounter Summary ---
[place] [address] Care Team Providers Care Spike Driver Name Role Phone Hoang Castellanos APRN Primary Care Provider Reason for Visit * Reason Onset Date Comments Medication Refill 10/16/2020 Encounter Details Date Type Department Care Team (Late st Contact Info) Description 10/16/2020 Telephone Primary Care at [facility] [address] [facility] [place] [phone] Shannon Cruz, mushroom farmer Refill Social History Tobacco Use Types Packs/Day [...] type documented in this encounter Care Teams Spike Driver Relationship Specialty Start Date End Date Hoang Castellanos APRN [address] [place] [address] PCP - General Family Medicine 03/12/20 documented as of this encounter
--- OUTSIDE RECORDS SUMMARY | 2024-08-07 14:10 | XMS_ITS | Encounter Summary ---
[place] [address] Care Team Providers Care Dry Plasterer Name Role Phone Hoang Castellanos APRN Primary Care Provider Encounter Details Date Type Department Care Team (Late st Contact Info) Description 12/09/2020 Telephone Primary Care at [facility] 10 [place] [phone] Ananth Wilson MD 10 [facility] [place] [address] Social History Tobacco Use Types Packs/Day Years [...] Time: 7:22 PM Caller: self Phone number: [phone] Primary care provider: Hoang Castellanos APRN Reason [...] on filedocumented in this encounter Care Teams Dry Plasterer Relationship Specialty Start Date End Date Hoang Castellanos APRN [address] [place] [address] PCP - General Family Medicine 03/12/20 documented as of this encounter
--- OUTSIDE RECORDS SUMMARY | 2024-08-07 14:10 | XMS_ITS | Encounter Summary ---
Author Organization [facility] [place] [address] Care Team Providers Care Deputy District Customs Director Name Role Phone Hoang Castellanos APRN Primary Care Provider [phone] Reason for Visit * Reason Comments Medication Refill Encounter Details Date Type Department Care Team (Late st Contact Info) Description 10/27/2020 Refill Primary Care at [facility] 10 [place] [phone] Hoang Castellanos APRN 10 [facility] [place] [address] Chronic obstructive pulmonary disease, unspecified COPD type [...] Last Appt: 10/10/2020 Future Appt: 11/10/2020 Pharmacy: [facility] Last rx: 05/21/2019: 1 inhaler,, 11 refills [...] type documented in this encounter Care Teams Deputy District Customs Director Relationship Specialty Start Date End Date Hoang Castellanos, CENTER RECEPTIONIST [address] [place] [address] PCP - General Family Medicine 03/12/20 documented as of this encounter
--- OUTSIDE RECORDS SUMMARY | 2024-08-07 14:10 | XMS_ITS | Encounter Summary ---
Author Organization [facility] [place] [address] Care Team Providers Care Wiping Cloth Cutter Name Role Phone Hoang Castellanos APRN Primary Care Provider Reason for Visit * Reason Comments Medication Refill Encounter Details Date Type Department Care Team (Late st Contact Info) Description 11/24/2020 Refill Primary Care at [facility] 10 [facility] [place] [phone] Hoang Castellanos APRN [address] [facility] [place] [address] Social History Tobacco Use Types Packs/Day Years [...] FeroSul 325 (65 Fe) MG Tablet] 12 [id number] Sig: TAKE ONE (1) TABLET BY MOUTH THREE TIMES A WEEK Last Appt: 10/10/2020 Future Appt: 12/15/2020 Comments: last prescribed by Priya Charles APRN Pharmacy: [facility] Last rx: 01/08/2020: 36 tablets/capsules, 3 refills Lab Results Component Value Date IRON 67 10/14/2020 TIBC 342 10/14/2020 FERRITIN 60 10/14/2020 documented in this encounter Plan of Treatment Not on file documented as of this encounter Visit Diagnoses Not on filedocumented in this encounter Care Teams Wiping Cloth Cutter Relationship Specialty Start Date End Date Hoang Castellanos APRN [address] [place] [address] PCP - General Family Medicine 03/12/20 documented as of this encounter
--- OUTSIDE RECORDS SUMMARY | 2024-08-07 14:10 | XMS_ITS | Encounter Summary ---
Author [facility] [place] [address] Care Team Providers Care Stab Setter And Driller Name Role Phone Hoang Castellanos APRN Primary Care Provider Encounter Details Date Type Department Care Team (Late st Contact Info) Description 10/14/2020 Orders Only Primary Care at [facility] 10 [place] [phone] Hoang Castellanos APRN 10 [facility] [place] [address] Acute cystitis with hematuria Social History Tobacco [...] cystitis documented in this encounter Care Teams Stab Setter And Driller Relationship Specialty Start Date End Date Hoang Castellanos APRN [address] [facility] [place] [address] PCP - General Family Medicine 03/12/20 documented as of this encounter
--- OUTSIDE RECORDS SUMMARY | 2024-08-07 14:10 | XMS_ITS | Encounter Summary ---
Author Organization [facility] [place] [address] Care Team Providers Care Computer Programmer Analyst Name Role Phone oHang Castellanos APRN Primary Care Provider Encounter Details Date Type Department Care Team (Late st Contact Info) Description 10/07/2020 Telephone Primary Care at [facility] 10 [place] [phone] Shannon Cruz, RN Social History Tobacco Use [...] filedocumented in this encounter Care Teams Computer Programmer Analyst Relationship Specialty Start Date End Date Hoang Castellanos APRN [address] [place] [address] PCP - General Family Medicine 03/12/20 documented as of this encounter
--- OUTSIDE RECORDS SUMMARY | 2024-08-07 14:10 | XMS_ITS | Encounter Summary ---
Author Organization [facility] [place] [address] Care Team Providers Care Gear Repairer Name Role Phone Hoang Castellanos APRN Primary Care Provider Reason for Visit * Reason Onset Date Comments Medication Refill 08/12/2020 Encounter Details Date Type Department Care Team (Late st Contact Info) Description 08/12/2020 Refill Primary Care at [facility] 10 [facility] [place] [phone] Hoang Castellanos APRN [address] [place] [address] Social History Tobacco Use Types Packs/Day Years [...] PM EST Request received via fax from [facility] for meloxicam Last Prescription Fill Date: [...] on filedocumented in this encounter Care Teams Gear Repairer Relationship Specialty Start Date End Date Hoang Castellanos, DISH UP PERSON [address] [place] [address] PCP - General Family Medicine 03/12/20 documented as of this encounter
--- OUTSIDE RECORDS SUMMARY | 2024-08-07 14:10 | XMS_ITS | Encounter Summary ---
[place] [address] Care Team Providers Care Regional Education Coordinator Name Role Phone Hoang Castellanos APRN Primary Care Provider Reason for Referral * Diagnostic Test (Routine) - Closed Specialty Diagnoses / Procedures Referred By Contac t Referred To Contact Diagnoses Coronary artery disease involving [place] coronary artery of [place] heart without angina pectoris Repeated falls Procedures Ziopatch 48 Hrs-15 Days Dustin Haynes [facility] [place] [address] Referral ID Status Reason Start Date Expiration Date V isits Requested Visits Authorized [id number] Closed Specialty Service Requested 10/01/2020 10/01/2021 1 1 Reason for Visit * Diagnostic Test (Routine) - Closed Specialty Diagnoses / Procedures Referred By Contac t Referred To Contact Diagnoses Coronary artery disease involving [place] coronary artery of [place] heart without angina pectoris Repeated falls Procedures Ziopatch 48 Hrs-15 Days Dustin Haynes [facility] [place] [address] Referral ID Status Reason Start Date Expiration Date V isits Requested Visits Authorized [id number] Closed Specialty Service Requested 10/01/2020 10/01/2021 1 1 Encounter Details Date Type Department Care Team (Late st Contact Info) Description 10/09/2020 8:25 AM EDT - 10/09/2020 11:59 PM EDT Hospital Encounter Non-Invasive Cardiology Lab [facility] [place] [phone] Benito Reed MD [facility] [place] [address] Coronary artery disease involving [place] coronary artery of [place] heart without angina pectoris; Repeated falls Discharge [...] 1 06/02/2020 12/01/2021 ibuprofen (Advil;Motrin) 800 mg TabletIndications:Learning Support Services Director randell right-sided low back pain without sciatica [...] 8:29 AM EDT Coronary artery disease involving [place] coronary artery of [place] heart without angina pectoris Repeated falls documented in this encounter Results * Ziopatch 48 Hrs-15 Days (10/09/2020 8:29 AM EDT) Anatomical Region Laterality Modality Other Narrative 11/07/2020 2:39 PM EDT [facility] ? Zio Patch? Ambulatory Cardiac Event Monitor [...] Diagnosis Coronary artery disease involving [place] coronary artery of [place] heart without angina pectoris Repeated falls Other symptoms involving nervous and musculoskeletal systems documented in this encounter Care Teams Regional Education Coordinator Relationship Specialty Start Date End Date Hoang Castellanos, ROTARY SURFACE GRINDER [address] [place] [address] PCP - General Family Medicine 03/12/20 documented as of this encounter
--- OUTSIDE RECORDS SUMMARY | 2024-08-07 14:10 | XMS_ITS | Encounter Summary ---
Author Organization [place] [address] Care Team Providers Care Prawn Trawler Hand Name Role Phone Hoang Castellanos APRN Primary Care Provider Reason for Visit * Reason Onset Date Comments Medication Refill 07/16/2020 Encounter Details Date Type Department Care Team (Late st Contact Info) Description 07/16/2020 Refill Primary Care at [facility] [address] [place] [phone] Isadora Hidalgo LPN Social History Tobacco Use [...] on filedocumented in this encounter Care Teams Prawn Trawler Hand Relationship Specialty Start Date End Date Hoang Castellanos, SAM [address] [place] [address] PCP - General Family Medicine 03/12/20 documented as of this encounter
--- OUTSIDE RECORDS SUMMARY | 2024-08-07 14:10 | XMS_ITS | Encounter Summary ---
[place] [address] Care Team Providers Care House Calls Nurse Practitioner Name Role Phone Hoang Castellanos APRN Primary Care Provider Reason for Referral * Diagnostic Test (Routine) - Closed Specialty Diagnoses / Procedures Referred By Contac t Referred To Contact Diagnoses Coronary artery disease involving [place] coronary artery of [place] heart without angina pectoris Repeated falls Procedures Ziopatch 48 Hrs-15 Days Dustin Haynes [facility] [place] [address] Referral ID Status Reason Start Date Expiration Date V isits Requested Visits Authorized [id number] Closed Specialty Service Requested 10/01/2020 10/01/2021 1 1 * Diagnostic Test (Routine) - Closed Specialty Diagnoses / Procedures Referred By Contac t Referred To Contact Cardiology Diagnoses Coronary artery disease involving [place] coronary artery of [place] heart without angina pectoris Procedures Echocardiogram Transthoracic([facility]) Dustin Haynes [facility] [place] [address] [facility] [place] [address] Referral ID Status Reason Start Date Expiration Date V isits Requested Visits Authorized [id number] Closed Specialty Service Requested 10/01/2020 10/01/2021 1 1 Reason for Visit * Consultation (Routine) - Closed Specialty Diagnoses / Procedures Referred By Contac t Referred To Contact Cardiology Diagnoses Coronary artery disease involving [place] coronary artery of [place] heart without angina pectoris CAD - Coronary artery disease involving [place] coronary artery of [place] heart without angina pectoris *BETTYE Hoang Castellanos, OIL DISTRIBUTOR TENDER [address] [place] [address] Freddy Mejias MD [facility] [place] [address] Referral ID Status Reason Start Date Expiration Date V isits Requested Visits Authorized [id number] Closed Consult, Test & Treat 07/16/2020 07/16/2021 6 6 Encounter Details Date Type Department Care Team (Late st Contact Info) Description 10/01/2020 3:00 PM EST TH Visit (TeleHealth) Cardiology at [address] [address] Benito Reed MD [facility] [place] [address] Dustin Haynes DO Coronary artery disease involving [place] coronary artery of [place] heart without angina pectoris; Repeated falls Social [...] from the original note were not included. [facility] [place] [address] CARDIOLOGY OUTPATIENT TELEHEALTH NOTE PRIMARY CARE PROVIDER: [...] Psychiatry ??? Osteoporosis DEXA done at [facility] on 10/29/15: osteoporosis at the left [...] 90 tablet 3 ??? Miscellaneous Medical Supply [facility] 1 walker on wheels with seat 1 [...] week. 36 tablet3 ??? lancets 30 gauge [facility] 1 each by [facility].(Non-Drug; Combo Route) route daily. 100 each 3 [...] SOCIAL HISTORY: , no children. Lives in [place]. Occupation: On Disability. Smoking: Active smoker, 1-2ppd, [...] of type II DM Dustin Haynes DO Dairy Scientist; PGY-5 10/01/2020 Cardiology Attending Attestation: 60 y.o. [...] to the recommendations above. Benito Reed MD [place] [phone] (office); Pager #[phone] Email: [email or web address] documented in this encounter Plan of Treatment Not on file documented as of this encounter Results * ECHO COMPLETE W CONTRAST (01/07/2021 1:27 PM EDT) EF 65 HEARTLAB SYSTEM Anatomical Region Laterality Modality Other 01/07/2021 Narrative 01/07/2021 1:36 PM EDT Procedure: ?Transthoracic Echocardiogram Patient: ?CARBANGIE JEANNIE L ? (Age): 1960(60y) Med Rec#: ? [id number] ?Sex: ?F ? Site Loc: ? [facility] ?Ht / Wt: ??163(cm)/99(kg) Pt. Loc: ?Echo Lab ?BSA: ?2.03 Study Date: ?? 01/07/2021 ?Pt. Type: Outpatient Tape: ? Referring: LAURA Reading: Freddy Mejias ([id number]) Child Care Counselor: Saranya Monson Director Of Student Affairs: Zackary Feldman Diagnosis: *Atherosclerotic heart disease of [place] coronary artery without angina pectoris (I25.10) BP: [...] Vmax ?0.56 ? m/sec ? MV deceleration fdcz709.41 ? msec ? MV A-wave Vmax ?0.81 [...] ? Mid-Inferior ?Normal ? Mid-Inferoseptal ?Normal ? [place]-Septal ? Normal ? [place]-Anterior ? Normal ? [place]-Lateral ?Normal ? [place]-Inferior ? Normal ? [place]-Tip ?Normal ? This report has been electronically signed by: Freddy Mejias MD ? 01/07/2021 13:36:15 Images reviewed and interpretation verified [facility] Cardiac Ultrasound Laboratory Procedure Note Freddy Mejias MD - 01/07/2021 Procedure: Transthoracic Echocardiogram Patient: APOLINAR Lawson DOB(Age): 1960(60y) Med Rec#: [id number] Sex: F Site Loc: [facility] Ht / Wt: 163(cm)/99(kg) Pt. Loc: Echo Lab BSA: 2.03 Study Date: 01/07/2021 Pt. Type: Outpatient Tape: Referring: LAURA Reading: Freddy Mejias ([id number]) Child Care Counselor: Saranya Monson Director Of Student Affairs: Zackary Feldman Diagnosis: *Atherosclerotic heart disease of [place] coronary artery without angina pectoris (I25.10) BP: [...] MV E-wave Vmax 0.56 m/sec MV deceleration depg007.41 msec MV A-wave Vmax 0.81 m/sec MV [...] Normal Mid-Posterolateral Normal Mid-Inferior Normal Mid-Inferoseptal Normal [place]-Septal Normal [place]-Anterior Normal [place]-Lateral Normal [place]-Inferior Normal [place]-Tip Normal This report has been electronically signed by: Freddy Mejias MD 01/07/2021 13:36:15 Images reviewed and interpretation verified [facility] Cardiac Ultrasound Laboratory Benito Reed MD ECHO ORDERABLES * Ziopatch 48 Hrs-15 Days (10/09/2020 8:29 AM EDT) Anatomical Region Laterality Modality Other Narrative 11/07/2020 2:39 PM EDT [facility] ? Zio Patch? Ambulatory Cardiac Event [...] Visit Diagnoses Diagnosis Coronary artery disease involving [place] coronary artery of [place] heart without angina pectoris Repeated falls Other symptoms involving nervous and musculoskeletal systems Coronary artery disease involving [place] coronary artery of [place] heart without angina pectoris Repeated falls Other symptoms involving nervous and musculoskeletal systems Coronary artery disease involving [place] coronary artery of [place] heart without angina pectoris documented in this encounter Care Teams House Calls Nurse Practitioner Relationship Specialty Start Date End Date Hoang Castellanos, OIL DISTRIBUTOR TENDER [address] [place] [address] PCP - General Family Medicine 03/12/20 documented as of this encounter
--- OUTSIDE RECORDS SUMMARY | 2024-08-07 14:10 | XMS_ITS | Encounter Summary ---
Author Organization [facility] [place] [address] Care Team Providers Care Fish And Wildlife Technician Name Role Phone Hoang Castellanos APRN Primary Care Provider [phone] Reason for Referral * Diagnostic Test (Routine) - Closed Specialty Diagnoses / Procedures Referred By Contac t Referred To Contact Radiology Diagnoses Dizziness Procedures MRI Brain wwo Contrast (Generic) Hoang Castellanos APRN [address] [place] [address] [facility] Rad Mri [address] [place] [address] Referral ID Status Reason Start Date Expiration Date V isits Requested Visits Authorized [id number] Closed Specialty Service Requested 07/14/2020 01/12/2022 1 1 Reason for Visit * Diagnostic Test (Routine) - Closed Specialty Diagnoses / Procedures Referred By Contac t Referred To Contact Radiology Diagnoses Dizziness Procedures MRI Brain wwo Contrast (Generic) Hoang Castellanos APRN [address] [place] [address] [facility] Rad Mri [address] [place] [address] Referral ID Status Reason Start Date Expiration Date V isits Requested Visits Authorized [id number] Closed Specialty Service Requested 07/14/2020 01/12/2022 1 1 Encounter Details Date Type Department Care Team (Latest Contact Info) Description 09/16/2020 12:12 PM EST - 09/16/2020 11:59 PM EST Hospital Encounter Radiology MRI at [facility] [address] [place] [address] Hoang Castellanos, MANAGER MULTICULTURAL [address] [place] [address] Dizziness Discharge Disposition: Home Social History Tobacco [...] 1 06/02/2020 12/01/2021 ibuprofen (Advil;Motrin) 800 mg TabletIndications:Ticket Seller randell right-sided low back pain without sciatica [...] ? Electronically signed by: Yannick Solis MD, [facility] ([phone]), at 09/16/2020 1:32 PM Narrative 09/16/2020 1:32 [...] below. Electronically signed by: Yannick Solis MD, [facility]([phone]), at 09/16/2020 1:32 PM Hoang Castellanos APRN [...] mLs documented in this encounter Care Teams Fish And Wildlife Technician Relationship Specialty Start Date End Date Hoang Castellanos, MANAGER MULTICULTURAL [address] [place] [address] PCP - General Family Medicine 03/12/20 documented as of this encounter
--- OUTSIDE RECORDS SUMMARY | 2024-08-07 14:10 | XMS_ITS | Encounter Summary ---
[place] [address] Care Team Providers Care Cask Maker Name Role Phone Hoang Castellanos APRN Primary Care Provider Encounter Details Date Type Department Care Team (Late st Contact Info) Description 09/16/2020 Telephone Primary Care at [facility] [address] [place] [phone] Shannon Cruz RN Social History Tobacco Use [...] on filedocumented in this encounter Care Teams Cask Maker Relationship Specialty Start Date End Date Hoang Castellanos, SAM [address] [place] [address] PCP - General Family Medicine 03/12/20 documented as of this encounter
--- OUTSIDE RECORDS SUMMARY | 2024-08-07 14:10 | XMS_ITS | Encounter Summary ---
Author Organization [facility] Address [facility] [place] [address] Care Team Providers Care Aromatherapist Name Role Phone Hoang Castellanos APRN Primary Care Provider Reason for Referral * Home Health Care (Routine) - Closed Specialty Diagnoses / Procedures Referred By Contdavide t Referred To Contact Home Health Agency Diagnoses Essential hypertension Hoang Castellanos APRN [address] [place] [address] Visiting Nurse, [facility] [address] [address] Referral ID Status Reason Start Date Expiration Date V isits Requested Visits Authorized [id number] Closed Continuity of Care 10/08/2020 04/06/2021 1 1 Encounter Details Date Type Department Care Team (Late st Contact Info) Description 10/08/2020 Telephone Primary Care at [facility] [place] [address] [facility] [place] [phone] Hoang Castellanos APRN [address] [facility] [address] FAM[place], [place] [id number] Social History Tobacco Use Types Packs/Day Years [...] like a referral to the [facility] for blood pressure checks documented in this encounter Plan of Treatment Scheduled Referrals Name Type Priority Associated Diagnoses Orde r Schedule Referral to Home Health - Clinic Use Outpatient Referral Routine Essential hypertension Ordered: 10/08/2020 documented as of this encounter Visit Diagnoses Diagnosis Essential hypertension Unspecified essential hypertension documented in this encounter Care Teams Aromatherapist Relationship Specialty Start Date End Date Hoang Castellanos, HOT STRIP FINISHER [address] [place] [address] PCP - General Family Medicine 03/12/20 documented as of this encounter
--- OUTSIDE RECORDS SUMMARY | 2024-08-07 14:10 | XMS_ITS | Encounter Summary ---
Author Organization [facility] [place] [address] Care Team Providers Care Stripper Shovel Operator Name Role Phone Hoang Castellanos APRN Primary Care Provider Encounter Details Date Type Department Care Team (Late st Contact Info) Description 12/10/2020 Telephone Primary Care at [facility] [address] [facility] [place] [phone] Alva Castellanos LPN Social History Tobacco Use [...] eye. I explained she should see an Hand Method Lasting Machine Operator, I gave her a number for [facility].That is where she wanted to go. I told her to leave a message with their answering service. She asked about keeping the appointment today, I told her she needs to see the Hand Method Lasting Machine Operator hopefully this morning. documented in this encounter Plan of Treatment Not on file documented as of this encounter Visit Diagnoses Not on filedocumented in this encounter Care Teams Stripper Shovel Operator Relationship Specialty Start Date End Date Hoang Castellanos, SWIFT TENDER [address] [place] [address] PCP - General Family Medicine 03/12/20 documented as of this encounter
--- OUTSIDE RECORDS SUMMARY | 2024-08-07 14:11 | XMS_ITS | Encounter Summary ---
[place] [address] Care Team Providers Care Senior Air Director Name Role Phone Hoang Castellanos APRN Primary Care Provider Encounter Details Date Type Department Care Team (Latest Contact Info) Description 04/07/2020 8:00 AM EDT Ancillary Procedure Radiology XRay at the [facility] at [facility] [address] [facility] [place] [address] Talita Hernandez MD [address] [facility] [facility] [place] [address] Closed fracture of distal end of right [...] ? Electronically signed by: Bandar Tejeda MD, [facility] ([phone]), at 04/07/2020 8:21 AM Narrative 04/07/2020 8:21 [...] sequela documented in this encounter Care Teams Senior Air Director Relationship Specialty Start Date End Date Hoang Castellanos, INK GRINDER [address] [place] [address] PCP - General Family Medicine 03/12/20 documented as of this encounter
--- OUTSIDE RECORDS SUMMARY | 2024-08-07 14:11 | XMS_ITS | Encounter Summary ---
Author Organization [facility] [place] [address] Care Team Providers Care Car Record Clerk Name Role Phone Hoang Castellanos APRN Primary Care Provider [phone] Encounter Details Date Type Department Care Team (Late st Contact Info) Description 03/12/2020 1:00 PM EDT Office Visit Physical Therapy at [address] [phone] Karl Spring, PT Low back pain, non-specific [...] primary care and Orth opaedics over at [facility]. She states the back has gradually [...] only, please see [facility] imaging for full report and imaging history) [...] non-specific documented in this encounter Care Teams Car Record Clerk Relationship Specialty Start Date End Date Hoang Castellanos, CERTIFIED PEDORTHOTIST [address] [place] [address] PCP - General Family Medicine 03/12/20 documented as of this encounter
--- OUTSIDE RECORDS SUMMARY | 2024-08-07 14:11 | XMS_ITS | Encounter Summary ---
Author Organization [facility] [place] [address] Care Team Providers Care Parts Sales Representative Name Role Phone Hoang Castellanos APRN Primary Care Provider Reason for Visit * Reason Comments Follow Up Fracture RIGHT distal radius intra-articular fracture 02/04/20 Encounter Details Date Type Department Care Team (Late st Contact Info) Description 02/05/2020 1:00 PM EDT Office Visit Orthopaedics at [facility] [place] [address] Closed fracture of distal end of right [...] encounter documented in this encounter Care Teams Parts Sales Representative Relationship Specialty Start Date End Date Hoang Castellanos, WELDER FITTER HELPER [address] [place] [address] PCP - General Family Medicine 12/07/19 03/11/20 documented as of this encounter
--- OUTSIDE RECORDS SUMMARY | 2024-08-07 14:11 | XMS_ITS | Encounter Summary ---
Author Organization [facility] [place] [address] Care Team Providers Care Amortization Clerk Name Role Phone Hoang Castellanos APRN Primary Care Provider Encounter Details Date Type Department Care Team (Late st Contact Info) Description 03/08/2020 Telephone Primary Care at [facility] [address] [place] [phone] Hoang Castellanos APRN [address] [place] [address] Social History Tobacco Use Types Packs/Day Years [...] able to route a message to the [id number] pool to coordinate and authorize testing. * Telephone Encounter - Hoang Castellanos APRN - 03/08/2020 8:07 AM EDT yard caller note: Pt with hx of chronic [...] on filedocumented in this encounter Care Teams Amortization Clerk Relationship Specialty Start Date End Date Hoang Castellanos APRN [address] [place] [address] PCP - General Family Medicine 12/07/19 03/11/20 documented as of this encounter
--- OUTSIDE RECORDS SUMMARY | 2024-08-07 14:11 | XMS_ITS | Encounter Summary ---
[place] [address] Care Team Providers Care Correctional Officer Sergeant Name Role Phone Hoang Castellanos APRN Primary Care Provider Reason for Visit * Reason Onset Date Comments Appointment 05/07/2020 Encounter Details Date Type Department Care Team (Late st Contact Info) Description 05/07/2020 [place] [phone] Caridad Moon Appointment Social History Tobacco Use [...] 05/07/2020 9:10 AM EDT Call Center / City [facility] Message - General Issue Call Provider patient sees in Clinic: none, new patient Caller and relationship (if other than patient-full name): self Call back number: [phone] Ok to leave a message: yes Reason for call: Patient is calling to reschedule the new patient appointment with Dr Michael Rosas.Patient is requesting a call back to see if this appointment can be a TOV. Please call patient to discuss further. Disposition of Call (choose one and remove others): ??? Routine message sent to [place]: yes documented in this encounter Plan of Treatment Not on file documented as of this encounter Visit Diagnoses Not on filedocumented in this encounter Care Teams Correctional Officer Sergeant Relationship Specialty Start Date End Date Hoang Castellanos, RN CASE MANAGEMENT [address] [place] [address] PCP - General Family Medicine 03/12/20 documented as of this encounter
--- OUTSIDE RECORDS SUMMARY | 2024-08-07 14:11 | XMS_ITS | Encounter Summary ---
[place] [address] Care Team Providers Care Director Electrical Engineering Name Role Phone Hoang Castellanos APRN Primary Care Provider Encounter Details Date Type Department Care Team (Late st Contact Info) Description 04/08/2020 Telephone Orthopaedics at [facility] [address] [facility] [place] [address] Irasema Chairez, RN Social History Tobacco Use [...] filedocumented in this encounter Care Teams Director Electrical Engineering Relationship Specialty Start Date End Date Hoang Castellanos, SAM [address] [place] [address] PCP - General Family Medicine 03/12/20 documented as of this encounter
--- OUTSIDE RECORDS SUMMARY | 2024-08-07 14:11 | XMS_ITS | Encounter Summary ---
[place] [address] Care Team Providers Care Retail Sales Lead Name Role Phone Hoang Castellanos APRN Primary Care Provider Encounter Details Date Type Department Care Team (Late st Contact Info) Description 04/03/2020 Telephone Primary Care at [facility] [place] [phone] Isadora Hidalgo LPN Social History Tobacco Use [...] the test results. If you have a [employer] account, you can see your results as [...] your hands with an alcohol- based hand carpenter ship that contains at least 60% alcohol, covering [...] provided on the website below by the [place] Department of Health and Human services regarding self quarantine. If you reside in a state other than [place], please review your state's specific self-quarantine instructions. https://www.[facility].[place].gov/dphs/cdcs/documents/yogq-lvmjwgxmvs-eewhl.pdf * Telephone Encounter - Isadora Hidalgo LPN [...] documented as of this encounter Care Teams Retail Sales Lead Relationship Specialty Start Date End Date Hoang Castellanos APRN [address] [place] [address] PCP - General Family Medicine 03/12/20 documented as of this encounter
--- OUTSIDE RECORDS SUMMARY | 2024-08-07 14:11 | XMS_ITS | Encounter Summary ---
Author Organization [facility] [place] [address] Care Team Providers Care Dietary Cook Name Role Phone Hoang Castellanos APRN Primary Care Provider Reason for Visit * Reason Onset Date Comments Medication Refill 03/12/2020 Encounter Details Date Type Department Care Team (Late st Contact Info) Description 03/12/2020 Refill Primary Care at [facility] 10 [facility] [place] [phone] Hoang Castellanos APRN [address] [place] [address] Dizziness; Chronic right-sided low back pain without [...] Hidalgo LPN - 03/12/2020 11:25 AM EDT [facility] [place] call they need patient's HT, WT, and different diagnosis.new Rx send with all information documented in this encounter Plan of Treatment Not on file documented as of this encounter Visit Diagnoses Diagnosis Dizziness Dizziness and giddiness Chronic right-sided low back pain without sciatica documented in this encounter Care Teams Dietary Cook Relationship Specialty Start Date End Date Hoang Castellanos APRN [address] [place] [address] PCP - General Family Medicine 03/12/20 documented as of this encounter
--- OUTSIDE RECORDS SUMMARY | 2024-08-07 14:11 | XMS_ITS | Encounter Summary ---
[place] [address] Care Team Providers Care Packaging Specialist Name Role Phone Hoang Castellanos APRN Primary Care Provider [phone] Encounter Details Date Type Department Care Team (Latest Contact Info) Description 05/01/2020 11:15 AM EDT Ancillary Procedure Radiology XRay at the [facility]Specialty Clinic at [facility] [address] [facility] [place] [address] Talita Hernandez MD [address] [facility] [address] [place] [address] Closed fracture of distal end of right [...] ? Electronically signed by: Odell Monsalve MD, [facility] ([phone]), at 05/01/2020 11:13 AM Narrative 05/01/2020 11:13 [...] sequela documented in this encounter Care Teams Packaging Specialist Relationship Specialty Start Date End Date Hoang Castellanos, COIL BINDER [address] [place] [address] PCP - General Family Medicine 03/12/20 documented as of this encounter
--- OUTSIDE RECORDS SUMMARY | 2024-08-07 14:11 | XMS_ITS | Encounter Summary ---
Author Organization [place] [address] Care Team Providers Care Ring Spinner Name Role Phone Hoang Castellanos APRN Primary Care Provider Reason for Visit * Reason Comments Follow Up Fracture RIGHT distal radius fx 02/04/20 Encounter Details Date Type Department Care Team (Late st Contact Info) Description 04/11/2020 8:30 AM EDT Office Visit Orthopaedics at [facility] [place] [address] Closed fracture of distal end of right [...] 90 tablet 3 ??? Miscellaneous Medical Supply [facility] 1 walker on [...] sequela documented in this encounter Care Teams Ring Spinner Relationship Specialty Start Date End Date Hoang Castellanos, HEALTH INFORMATION MANAGERS [address] [place] [address] PCP - General Family Medicine 03/12/20 documented as of this encounter
--- OUTSIDE RECORDS SUMMARY | 2024-08-07 14:11 | XMS_ITS | Encounter Summary ---
[place] [address] Care Team Providers Care Display Director Name Role Phone Hoang Castellanos APRN Primary Care Provider Reason for Visit * Reason Onset Date Comments Medication Refill 05/30/2020 Medication Refill 06/03/2020 Encounter Details Date Type Department Care Team (Late st Contact Info) Description 05/30/2020 Refill Primary Care at [facility] [place] [phone] Isadora Hidalgo LPN Social History Tobacco Use [...] filedocumented in this encounter Care Teams Display Director Relationship Specialty Start Date End Date Hoang Castellanos APRN [address] [place] [address] PCP - General Family Medicine 03/12/20 documented as of this encounter
--- OUTSIDE RECORDS SUMMARY | 2024-08-07 14:11 | XMS_ITS | Encounter Summary ---
[place] [address] Care Team Providers Care Conveyor Maintenance Mechanic Name Role Phone Hoang Castellanos APRN Primary Care Provider Encounter Details Date Type Department Care Team (Late st Contact Info) Description 02/27/2020 Telephone Primary Care at [facility] 10 [place] [phone] Isadora Hidalgo LPN Social History Tobacco Use [...] on the with RA to call Sherri [phone], Jeannie dobson to be part of the appointment documented in this encounter Plan of Treatment Not on file documented as of this encounter Visit Diagnoses Not on filedocumented in this encounter Care Teams Conveyor Maintenance Mechanic Relationship Specialty Start Date End Date Hoang Castellanos, SAM [address] [place] [address] PCP - General Family Medicine 12/07/19 03/11/20 documented as of this encounter
--- OUTSIDE RECORDS SUMMARY | 2024-08-07 14:11 | XMS_ITS | Encounter Summary ---
[place] [address] Care Team Providers Care Hand Tool Lapper Name Role Phone Hoang Castellanos APRN Primary Care Provider Encounter Details Date Type Department Care Team (Late st Contact Info) Description 03/12/2020 [place] [phone] Shakir Mark RN Social History Tobacco Use [...] filedocumented in this encounter Care Teams Hand Tool Lapper Relationship Specialty Start Date End Date Hoang Castellanos APRN [address] [place] [address] PCP - General Family Medicine 03/12/20 documented as of this encounter
--- OUTSIDE RECORDS SUMMARY | 2024-08-07 14:11 | XMS_ITS | Encounter Summary ---
Author Organization [facility] [place] [address] Care Team Providers Care Training Development Director Name Role Phone Hoang Castellanos APRN Primary Care Provider Reason for Visit * Reason Comments Medication Refill Encounter Details Date Type Department Care Team (Late st Contact Info) Description 01/21/2020 Refill Primary Care at [facility] 10 [place] [phone] Yisel Marroquin MD Social History Tobacco Use [...] on filedocumented in this encounter Care Teams Training Development Director Relationship Specialty Start Date End Date Hoang Castellanos, MUCK HAULER [address] [place] [address] PCP - General Family Medicine 12/07/19 03/11/20 documented as of this encounter
--- OUTSIDE RECORDS SUMMARY | 2024-08-07 14:11 | XMS_ITS | Encounter Summary ---
[place] [address] Care Team Providers Care Organisational Psychologist Name Role Phone Hoang Castellanos APRN Primary Care Provider [phone] Reason for Visit * Reason Onset Date Comments Fall 07/03/2020 Ankle Injury 07/03/2020 Encounter Details Date Type Department Care Team (Late st Contact Info) Description 07/03/2020 Telephone Primary Care at [facility] [place] [phone] Minerva Calderón RN Fall; Ankle Injury Social [...] report Jeannie fell at [facility] home in [place] last night, injured ankle, unable to bear weight. They would like to avoid calling 911 but need ambulance transport to get Jeannie to ED. They called her [employer] registered nurse hh case manager who advised to call PCP office. Advised may try to reach [facility] directly, if unable, call 911 for transport to ED. [facility] verbalized understanding and agreement. documented in this encounter Plan of Treatment Not on file documented as of this encounter Visit Diagnoses Not on filedocumented in this encounter Care Teams Organisational Psychologist Relationship Specialty Start Date End Date Hoang Castellanos, MOLD FORMS BUILDER [address] [place] [address] PCP - General Family Medicine 03/12/20 documented as of this encounter
--- OUTSIDE RECORDS SUMMARY | 2024-08-07 14:11 | XMS_ITS | Encounter Summary ---
Author Organization [facility] [place] [address] Care Team Providers Care Loading Machine Operator Name Role Phone Hoang Castellanos APRN Primary Care Provider Reason for Referral * Consultation (Routine) - Closed Specialty Diagnoses / Procedures Referred By Contac t Referred To Contact Neurology Diagnoses Dizziness Hoang Castellanos APRN [address] [place] [address] [facility] [address] [place] [phone] Referral ID Status Reason Start Date Expiration Date V isits Requested Visits Authorized [id number] Closed Specialty Service Requested 03/04/2020 03/04/2021 6 6 * Physical Therapy (Routine) - Closed Specialty Diagnoses / Procedures Referred By Contac t Referred To Contact Physical Therapy Diagnoses Chronic right-sided low back pain without sciatica Hoang Castellanos APRN [address] [place] [address] [facility] [address] [place] [address] Referral ID Status Reason Start Date Expiration Date V isits Requested Visits Authorized [id number] Closed Evaluate and Treat 03/04/2020 03/04/2021 12 12 Reason for Visit * Reason Comments Hypertension Back Pain Dizziness Encounter Details Date Type Department Care Team (Late st Contact Info) Description 03/04/2020 11:00 AM EDT [facility] [place] [address] Hoang Castellanos, PRESSURE SUPERVISOR [address] [place] [address] Dizziness; Chronic right-sided low back pain without [...] a 59 y.o. female [facility] to the [facility] Primary Care Clinic HPI HYPERTENSION: [...] visit: Dizziness - [facility]; 1 walker on wheels with seat Chronic right-sided low back pain without sciatica - ibuprofen (Advil;Motrin) 800 mg Tablet; Take 1 tablet by mouth every 8 hours as needed for Pain. - [facility]; 1 walker on wheels with seat Healthcare maintenance - Shingrix Zoster Vaccine, IM Type 2 diabetes mellitus without complication, without long-term current use of insulin - CMP w/fasting Glucose; Future - Hemoglobin A1c; Future Will send Rx for walker with a seat to [facility] Referral back to Neurology for f/u [...] insulin documented in this encounter Care Teams Loading Machine Operator Relationship Specialty Start Date End Date Hoang Castellanos APRN [address] [place] [address] PCP - General Family Medicine 12/07/19 03/11/20 documented as of this encounter
--- OUTSIDE RECORDS SUMMARY | 2024-08-07 14:11 | XMS_ITS | Encounter Summary ---
Author Organization [facility] [place] [address] Care Team Providers Care Curriculum Supervisor Name Role Phone Hoang Castellanos APRN Primary Care Provider Encounter Details Date Type Department Care Team (Late st Contact Info) Description 04/03/2020 - 04/03/2020 1:17 PM EDT Emergency Emergency Services at [address] [phone] Discharge Disposition: Home Social History [...] 2 times daily. 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
--- OUTSIDE RECORDS SUMMARY | 2024-08-07 14:11 | XMS_ITS | Encounter Summary ---
Author Organization [facility] [place] [address] Care Team Providers Care Electronics Hardware Design Engineer Name Role Phone Hoang Castellanos APRN Primary Care Provider Encounter Details Date Type Department Care Team (Late st Contact Info) Description 04/08/2020 12:00 PM EDT Office Visit Physical Therapy at [address] [phone] Keely Childers PTA Low back pain, non-specific [...] her pain symptoms today. O: Therex: Strength/Endurance/ROM (85711) 40 min ?? Supine Posterior/anterior pelvic rocks [...] non-specific documented in this encounter Care Teams Electronics Hardware Design Engineer Relationship Specialty Start Date End Date Hoang Castellanos APRN [address] [place] [address] PCP - General Family Medicine 03/12/20 documented as of this encounter
--- OUTSIDE RECORDS SUMMARY | 2024-08-07 14:11 | XMS_ITS | Encounter Summary ---
Author Organization [facility] [place] [address] Care Team Providers Care Office Clinician Name Role Phone Hoang Castellanos APRN Primary Care Provider Reason for Referral * Occupational Therapy (Routine) - Closed Specialty Diagnoses / Procedures Referred By Vanita t Referred To Contact Occupational Therapy Diagnoses Closed fracture of distal end of right radius, unspecified fracture morphology, sequela Talita Hernandez MD [address] [place] [address] [facility] [address] [place] [address] Referral ID Status Reason Start Date Expiration Date V isits Requested Visits Authorized [id number] Closed Evaluate and Treat 05/01/2020 05/01/2021 12 12 Reason for Visit * Reason Comments Follow-up Right wrist intra-ar ticular distal radius fracture 02/04/20 Encounter Details Date Type Department Care Team (Late st Contact Info) Description 05/01/2020 11:30 AM EDT Office Visit Orthopaedics at [facility] [address] [place] [phone] Talita Hernandez MD [address] [place] [address] Closed fracture of distal end of right [...] sequela documented in this encounter Care Teams Office Clinician Relationship Specialty Start Date End Date Hoang Castellanos, SAM [address] [place] [address] PCP - General Family Medicine 03/12/20 documented as of this encounter
--- OUTSIDE RECORDS SUMMARY | 2024-08-07 14:11 | XMS_ITS | Encounter Summary ---
Author Organization [facility] [place] [address] Care Team Providers Care Aircraft Detail Draftsperson Name Role Phone Hoang Castellanos APRN Primary Care Provider Reason for Visit * Reason Comments Follow-up Right intra-articula r distal radius and ulna fracture 02/04/20 Encounter Details Date Type Department Care Team (Late st Contact Info) Description 02/12/2020 10:15 AM EDT Office Visit Orthopaedics at [facility] 10 [facility] [place] [address] Talita Hernandez MD [address] [facility] [place] [address] Closed fracture of distal end of right [...] sequela documented in this encounter Care Teams Aircraft Detail Draftsperson Relationship Specialty Start Date End Date Hoang Castellanos, SAM [address] [place] [address] PCP - General Family Medicine 12/07/19 03/11/20 documented as of this encounter
--- OUTSIDE RECORDS SUMMARY | 2024-08-07 14:11 | XMS_ITS | Encounter Summary ---
[place] [address] Care Team Providers Care Flight Operations Inspector Name Role Phone Hoang Castellanos APRN Primary Care Provider [phone] Encounter Details Date Type Department Care Team (Late st Contact Info) Description 03/04/2020 Orders Only Orthopaedics at [facility] 10 [place] [address] Talita Hernandez MD 10 [facility] [place] [address] Closed fracture of distal end of right [...] Primary documented in this encounter Care Teams Flight Operations Inspector Relationship Specialty Start Date End Date Hoang Castellanos APRN 10 [facility] [address] [place] [address] PCP - General Family Medicine 12/07/19 03/11/20 documented as of this encounter
--- OUTSIDE RECORDS SUMMARY | 2024-08-07 14:11 | XMS_ITS | Encounter Summary ---
Author Organization [facility] [place] [address] Care Team Providers Care Student Financial Aid Manager Name Role Phone Hoang Castellanos APRN Primary Care Provider Reason for Visit * Reason Onset Date Comments Medication Refill 03/21/2020 Encounter Details Date Type Department Care Team (Late st Contact Info) Description 03/21/2020 Refill Primary Care at [facility] 10 [facility] [place] [place] [phone] Isadora Hidalgo LPN Social History Tobacco Use [...] filedocumented in this encounter Care Teams Student Financial Aid Manager Relationship Specialty Start Date End Date Hoang Castellanos, SAM [address] [place] [address] PCP - General Family Medicine 03/12/20 documented as of this encounter
--- OUTSIDE RECORDS SUMMARY | 2024-08-07 14:11 | XMS_ITS | Encounter Summary ---
[place] [address] Care Team Providers Care Station Cook Name Role Phone Hoang Castellanos APRN Primary Care Provider Encounter Details Date Type Department Care Team (Latest Contact Info) Description 03/19/2020 10:30 AM EDT Ancillary Procedure Radiology XRay at the [facility]Specialty Clinic at [facility] 10 [facility] [place] [address] Talita Hernandez MD [address] [facility] [address] [place] [address] Closed fracture of distal end of right [...] sequela documented in this encounter Care Teams Station Cook Relationship Specialty Start Date End Date Hoang Castellanos, SAM [address] [place] [place] [address] PCP - General Family Medicine 03/12/20 documented as of this encounter
--- OUTSIDE RECORDS SUMMARY | 2024-08-07 14:11 | XMS_ITS | Encounter Summary ---
Author Organization [facility] Address [facility] [place] [address] Care Team Providers Care Power Press Tender Name Role Phone Hoang Castellanos APRN Primary Care Provider Reason for Visit * Reason Comments Right Ankle Pain Encounter Details Date Type Department Care Team (Late st Contact Info) Description 07/03/2020 11:32 AM EST - 07/03/2020 6:11 PM EST Emergency Emergency Services at [facility] [address] [facility] [place] [phone] Nilam Blair MD [facility] [place] [address] Sprain of right ankle, unspecified ligament, initial [...] sent through Care Everywhere. * Ankle Sprain (Sammarinese) documented in this encounter Medications at Time [...] 1 06/02/2020 12/01/2021 ibuprofen (Advil;Motrin) 800 mg TabletIndications:Restaurant General Manager randell right-sided low back pain without sciatica [...] file Gets together: Not on file Attends restoration service: Not on file Active member of [...] BIOPSY performed by Ken Sanders MD at [facility] ENDOSCOPY ??? PRO UPPER GI ENDOSCOPY, BIOPSY N/A 09/19/2018 UPPER GASTROINTESTINAL ENDOSCOPY,WITH BIOPSY SINGLE OR MULTIPLE (WRVU 2.49) performed by Tyron Mercado MD at [facility] ENDOSCOPY ??? TONSILLECTOMY ??? UPPER GI ENDOSCOPY, EXAM 12/04/2010 UPPER GI ENDOSCOPY performed by DEE WRIGHT at [facility] Review of Systems All other [...] ligament, initial encounter Nilam Blair MD 07/03/20 [id number] * Evonne Evangelista RN - 07/03/2020 4:50 [...] was faxed to the patient's preferred agency, [facility] ([phone]). * Care Management - Lele Davenport - 07/03/2020 4:27 PM EST Met with pt at RN request to discuss VNA services for home PT and review any other needs. Pt is agreeable to VNA services and after reviewing options requests referral to [facility]. She denies need for other community services [...] a commode for free through localagencies including [facility]. VNA referral initiated, will continue to follow [...] ??? Osteoporosis Overview Note: DEXA done at [facility] on 10/29/15: osteoporosis at the left hip T-3, and osteopenia of the spine T-1.9 ??? Atherosclerosis of [place] coronary artery of [place] heart without angina pectoris ??? Smokes cigarettes [...] BIOPSY performed by Ken Sanders MD at [facility] ENDOSCOPY ??? PRO UPPER GI ENDOSCOPY, BIOPSY N/A 09/19/2018 UPPER GASTROINTESTINAL ENDOSCOPY,WITH BIOPSY SINGLE OR MULTIPLE (WRVU 2.49) performed by Tyron Mercado MD at [facility] ??? TONSILLECTOMY ??? UPPER GI ENDOSCOPY, EXAM 12/04/2010 UPPER GI ENDOSCOPY performed by DEE WRIGHT at [facility] Prior Hospital Care related to [...] her friend, otherwise will get one from [employer] ?? Educated pt on availability of shoe [...] Pt is in agreement Charges: Ev low [employer], Self care 2017 PT Evaluation Code Rationale: [...] Date/Time Associated Diagnosis Comments RAPID COVID-19 PCR ([facility]D/[facility]) STAT 07/03/2020 1:27 PM EST HEMOGRAM [...] RNA (Rapid) Not Detected Not Detected [facility] Comment: This result should be [...] using the Simplexa COVID-19 Direct Assay by [employer] as authorized by the FDA issued Emergency [...] Pathology and Laboratory Medicine at [facility], certified under the Clinical Laboratory Improvement Amendments [...] fact sheets at the following FDA website: https://www.fda.gov/medical-devices/txnvwekpnyv-acxlxso-0848-qykdr-28-ajkajpbuz- use-a fkwfiqzcsvepu-xzgntwx-uxsvvrp/tnuun-gdezrzjhxpt-repj SARS-CoV-2 Source GMAT INSTRUCTOR Swab MA [facility] Nasopharyngeal swab (specimen) 07/03/2020 1:27 PM EST 07/03/2020 2:37 PM EST Comment:Symptoms->COVID-19 S uspected Narrative Resulting Agency Comment Spec In Lab Nilam Blair MD MICROBIOLOGY - GENER AL ORDERABLES [facility] [place] [address] * (ABNORMAL) Differential, Automated (07/03/2020 12:55 PM [...] 1.0(H) 0.3 - 0.9 x10(3)/mc L [facility] Eos % 0.3 % [facility] [...] MD HEMATOLOGY ORDERABLE S Performing Organization Address City/[facility]/ZIP Co de Phone Number LABORATORY [address] [place] [address] * (ABNORMAL) Hemogram (07/03/2020 12:55 PM EST) [...] Blair MD HEMATOLOGY ORDERABLE S LABORATORY [address] [place] [address] * Basic Metabolic Panel (non-fasting) (07/03/2020 12:55 [...] Blair MD CHEMISTRY ORDERABLES LABORATORY [address] [place] [address] * Prothrombin Time (07/03/2020 12:55 PM EST) [...] Nilam Blair MD HEMATOLOGY ORDERABLE S [facility] [address] [place] [address] * XR Ankle Min 3 views Right (Generic) (07/03/2020 12:41 PM EST) Anatomical Region Laterality Modality Ankle Right Digital Radiogra phy Impressions 07/03/2020 1:02 PM EST No acute fracture. Thank you for letting us participate in the care of this patient. For questions regarding this report, please contact the number below. ? Electronically signed by: MONTY GRIFFIN DO, [facility] ([phone]), at 07/03/2020 1:02 PM Narrative 07/03/2020 1:02 [...] below. Electronically signed by: MONTY GRIFFIN DO [facility]([phone]), at 07/03/2020 1:02 PM Nilam Blair MD [...] ? Electronically signed by: MONTY GRIFFIN DO [facility] ([phone]), at 07/03/2020 1:01 PM Narrative 07/03/2020 1:01 [...] below. Electronically signed by: MONTY GRIFFIN DO, [facility]([phone]), at 07/03/2020 1:01 PM Nilam Blair MD [...] as of this encounter Care Teams Power Press Tender Relationship Specialty Start Date End Date Hoang Castellanos, SAM [address] [place] [address] PCP - General Family Medicine 03/12/20 documented as of this encounter
--- OUTSIDE RECORDS SUMMARY | 2024-08-07 14:11 | XMS_ITS | Encounter Summary ---
Author Organization [facility] [place] [address] Care Team Providers Care Mmi Teacher Name Role Phone Hoang Castellanos APRN Primary Care Provider Reason for Visit * Reason Onset Date Comments Medication Refill 05/09/2020 Encounter Details Date Type Department Care Team (Late st Contact Info) Description 05/09/2020 Refill Primary Care at [facility] [place] [phone] Isadora Hidalgo LPN Social History Tobacco Use [...] on filedocumented in this encounter Care Teams Mmi Teacher Relationship Specialty Start Date End Date Hoang Castellanos APRN [address] [place] [address] PCP - General Family Medicine 03/12/20 documented as of this encounter
--- OUTSIDE RECORDS SUMMARY | 2024-08-07 14:11 | XMS_ITS | Encounter Summary ---
Author Organization [facility] [place] [address] Care Team Providers Care Turfgrass Management Professor Name Role Phone Hoang Castellanos APRN Primary Care Provider Encounter Details Date Type Department Care Team (Late st Contact Info) Description 03/26/2020 3:00 PM EDT Office Visit Physical Therapy at [address] [phone] Keely Childers PTA Low back pain, non-specific [...] her pain symptoms today. O: Therex: Strength/Endurance/ROM (33074) 45 min ?? ITB foam roller STM [...] non-specific documented in this encounter Care Teams Turfgrass Management Professor Relationship Specialty Start Date End Date Hoang Castellanos, SUPERVISOR OPERATIONS [address] [place] [address] PCP - General Family Medicine 03/12/20 documented as of this encounter
--- OUTSIDE RECORDS SUMMARY | 2024-08-07 14:11 | XMS_ITS | Encounter Summary ---
Author Organization [facility] [place] [address] Care Team Providers Care Printing Supervisor Name Role Phone Hoang Castellanos APRN Primary Care Provider Reason for Visit * Reason Onset Date Comments Medication Refill 04/15/2020 Encounter Details Date Type Department Care Team (Late st Contact Info) Description 04/15/2020 Refill Primary Care at [facility] [address] [facility] [place] [phone] Isadora Hidalgo LPN B12 deficiency Social History [...] deficiencies documented in this encounter Care Teams Printing Supervisor Relationship Specialty Start Date End Date Hoang Castellanos, LANDFILL GRADER [address] [place] [address] PCP - General Family Medicine 03/12/20 documented as of this encounter
--- OUTSIDE RECORDS SUMMARY | 2024-08-07 14:11 | XMS_ITS | Encounter Summary ---
Author Organization [facility] [place] [address] Care Team Providers Care Java Programming Professor Name Role Phone Hoang Castellanos APRN Primary Care Provider Encounter Details Date Type Department Care Team (Late st Contact Info) Description 04/22/2020 Orders Only Orthopaedics at [facility] 10 [place] [address] Talita Hernandez MD [address] [facility] [address] [place] [address] Closed fracture of distal end of right [...] ? Electronically signed by: Odell Monsalve MD, [facility] ([phone]), at 05/01/2020 11:13 AM Narrative 05/01/2020 11:13 [...] conspicuous on the AP radiograph. Procedure Note Oedll Monsalve MD - 05/01/2020 EXAMINATION: XR WRIST [...] sequela documented in this encounter Care Teams Java Programming Professor Relationship Specialty Start Date End Date Hoang Castellanos, DRYING OVEN ATTENDANT [address] [place] [address] PCP - General Family Medicine 03/12/20 documented as of this encounter
--- OUTSIDE RECORDS SUMMARY | 2024-08-07 14:11 | XMS_ITS | Encounter Summary ---
Author Organization [place] [address] Care Team Providers Care Commissary Helper Name Role Phone Hoang Castellanos APRN Primary Care Provider Reason for Visit * Reason Onset Date Comments Medication Refill 03/12/2020 Encounter Details Date Type Department Care Team (Late st Contact Info) Description 03/12/2020 Refill Primary Care at [facility] [address] [facility] [place] [phone] Isadora Hidalgo LPN Dizziness; Chronic right-sided low [...] to send the Rx for walker to [facility] ortho fax # [phone], this way patient doesn't have to pay out of pocket. Rx printed and faxed to [facility] ortho documented in this encounter Plan of Treatment Not on file documented as of this encounter Visit Diagnoses Diagnosis Dizziness Dizziness and giddiness Chronic right-sided low back pain without sciatica documented in this encounter Care Teams Commissary Helper Relationship Specialty Start Date End Date Hoang Castellanos APRN [address] [place] [address] PCP - General Family Medicine 03/12/20 documented as of this encounter
--- OUTSIDE RECORDS SUMMARY | 2024-08-07 14:11 | XMS_ITS | Encounter Summary ---
Author Organization [facility] [place] [address] Care Team Providers Care Airline Security Representative Name Role Phone Hoang Castellanos APRN Primary Care Provider [phone] Reason for Visit * Reason Comments URI Encounter Details Date Type Department Care Team (Late st Contact Info) Description 04/03/2020 11:30 AM EDT Office Visit Primary Care at [facility] 10 [place] [phone] Karl Rowe MD 10 [place] [address] Suspected COVID-19 virus infection; Chronic obstructive pulmonary [...] a 59 y.o. female presenting to the [facility] Primary Care Clinic URI This is [...] to rapid Await results prior to leaving [facility] campus as patient uses Public transportation There are no Patient Instructions on file for this visit. FOLLOWUP: No follow-ups on file. documented in this encounter Plan of Treatment Not on file documented as of this encounter Procedures Procedure Name Priority Date/Time Associated Diagnosis Comments RAPID COVID-19 PCR ([facility]/APD/[facility]) Routine 04/03/2020 11:19 AM EDT documented in this encounter Results * COVID-19 PCR (04/03/2020 11:19 AM EDT) SARS-CoV-2 RNA (Rapid) Not Detected Not Detected [facility] [...] using the Simplexa COVID-19 Direct Assay by [employer] as authorized by the FDA issued Emergency [...] of Pathology and Laboratory Medicine at [facility], certified under the Clinical Laboratory Improvement [...] Information for Healthcare Professionals (https://www.cdc.gov/coronavirus/2019-ncov/hcp/index.html). SARS-CoV-2 Source CARD TENDER Swab [facility] Nasopharyngeal swab (specimen) Other / Unknown 04/03/2020 11:19 AM EDT 04/03/2020 12:42 PM EDT Comment:Symptoms->Fever / Re spiratory Symptoms Narrative Resulting Agency Comment Spec In Lab / [facility]D Hoang Castellanos APRN MICROBIOLOGY - GENER AL ORDERABLES [facility] [place] [address] documented in this encounter Visit Diagnoses Diagnosis Suspected COVID-19 virus infection Chronic obstructive pulmonary disease, unspecified COPD type documented in this encounter Care Teams Airline Security Representative Relationship Specialty Start Date End Date Hoang Castellanos APRN [address] [place] [address] PCP - General Family Medicine 03/12/20 documented as of this encounter
--- OUTSIDE RECORDS SUMMARY | 2024-08-07 14:11 | XMS_ITS | Encounter Summary ---
Author Organization [facility] [place] [address] Care Team Providers Care Gravity Flow Irrigator Name Role Phone Hoang Castellanos APRN Primary Care Provider Encounter Details Date Type Department Care Team (Late st Contact Info) Description 04/03/2020 Telephone Primary Care at [facility] [place] [phone] Jeannie Luciano, RN Social History Tobacco Use [...] 04/03/2020 9:41 AM EDT Pt arrived at [facility] and screened positive for COVID like symptoms; [...] of or healthcare workers at group homes/shelters, assisted facilities or ferry terminal supervisor care facilities (LTCFs); and all first responders. [] For patients with an [facility] primary care provider (PCP), we perform asymptomatic screening requiredfor school, work, or travel. 3. PATIENT REQUEST [] Patient does not meet above criteria but is requesting testing. All patients requesting testing will need to be referred below to [facility] prior to scheduling. PLAN [] Patient scheduled for an appointment with provider [] OV []TH [] Patient declined provider appointment [] Patient referred to [facility] for testing (send signed note to [facility]) [] Triage note sent to provider for input Patient instructions: documented in this encounter Plan of Treatment Not on file documented as of this encounter Visit Diagnoses Diagnosis Suspected COVID-19 virus infection documented in this encounter Care Teams Gravity Flow Irrigator Relationship Specialty Start Date End Date Hoang Castellanos APRN [address] [place] [address] PCP - General Family Medicine 03/12/20 documented as of this encounter
--- OUTSIDE RECORDS SUMMARY | 2024-08-07 14:11 | XMS_ITS | Encounter Summary ---
[place] [address] Care Team Providers Care Portable Grinding Machine Operator Name Role Phone Hoang Castellanos APRN Primary Care Provider Encounter Details Date Type Department Care Team (Latest Contact Info) Description 02/05/2020 12:55 PM EDT Ancillary Procedure Radiology XRay at the [facility] at [facility] 10 [place] [phone] Hoang Castellanos APRN [address] [facility] [place] [address] Closed fracture of distal end of right [...] encounter documented in this encounter Care Teams Portable Grinding Machine Operator Relationship Specialty Start Date End Date Hoang Castellanos APRN [address] [place] [address] PCP - General Family Medicine 12/07/19 03/11/20 documented as of this encounter
--- OUTSIDE RECORDS SUMMARY | 2024-08-07 14:11 | XMS_ITS | Encounter Summary ---
[place] [address] Care Team Providers Care Marketing Services Coordinator Name Role Phone Hoang Castellanos APRN Primary Care Provider Encounter Details Date Type Department Care Team (Late st Contact Info) Description 02/18/2020 Telephone Primary Care at [facility] [address] [facility] [phone] Hoang Castellanos APRN [address] [place] [address] Social History Tobacco Use Types Packs/Day Years [...] Grace Lockhart - 02/21/2020 3:11 PM EDT [place] pharmacy aware. They will DC the order. * Telephone Encounter - Isadora Hidalgo LPN - 02/21/2020 1:22 PM EDT Received another call from [facility] they want to know if we still working to try and get this patches for Jeannie they want an answer either way * Telephone Encounter - Grace Lockhart - 02/18/2020 2:44 PM EDT Lalit Bolton I received a call from [employer] about Jeannie's Lidocaine 5% patch. The insurance denied it (denial is under scanned docs) so they are wondering if this is just being canceled or if you were going to try something different? documented in this encounter Plan of Treatment Not on file documented as of this encounter Visit Diagnoses Not on filedocumented in this encounter Care Teams Marketing Services Coordinator Relationship Specialty Start Date End Date Hoang Castellanos, ZIGZAG TUNNEL ELASTIC OPERATOR [address] [place] [address] PCP - General Family Medicine 12/07/19 03/11/20 documented as of this encounter
--- OUTSIDE RECORDS SUMMARY | 2024-08-07 14:11 | XMS_ITS | Encounter Summary ---
Author Organization [facility] [address] Care Team Providers Care Epic Ambulatory Analyst Name Role Phone Hoang Castellanos APRN Primary Care Provider Reason for Visit * Reason Comments Follow-up Right intra-articula r distal radius and ulna fracture 02/04/20 Encounter Details Date Type Department Care Team (Late st Contact Info) Description 03/04/2020 9:00 AM EDT Office Visit Orthopaedics at [facility] [place] [address] Closed fracture of distal end of right [...] this encounter Patient Instructions * Patient Instructions* Liberatd Day - 03/04/2020 9:00 AM EDT Images [...] sequela documented in this encounter Care Teams Epic Ambulatory Analyst Relationship Specialty Start Date End Date Hoang Castellanos, SAM [address] [place] [address] PCP - General Family Medicine 12/07/19 03/11/20 documented as of this encounter
--- OUTSIDE RECORDS SUMMARY | 2024-08-07 14:11 | XMS_ITS | Encounter Summary ---
Author Organization [facility] [place] [address] Care Team Providers Care File Machine Operator Name Role Phone Hoang Castellanos APRN Primary Care Provider Reason for Visit * Reason Comments Follow-up Right intra-articula r distal radius fracture 02/04/20 Encounter Details Date Type Department Care Team (Late st Contact Info) Description 03/19/2020 10:45 AM EDT Office Visit Orthopaedics at [facility] [address] [facility] [place] [address] Talita Hernandez MD [address] [facility] [address] [place] [address] Closed fracture of distal end of right [...] please contact the number below. ? Narrative 04/07/2020 8:21 AM EDT EXAMINATION: XR [...] sequela documented in this encounter Care Teams File Machine Operator Relationship Specialty Start Date End Date Hoang Castellanos, SAM [address] [place] [address] PCP - General Family Medicine 03/12/20 documented as of this encounter
--- OUTSIDE RECORDS SUMMARY | 2024-08-07 14:11 | XMS_ITS | Encounter Summary ---
Author Organization [facility] [address] Care Team Providers Care Manager Balance Name Role Phone Hoang Castellanos APRN Primary Care Provider Reason for Referral * Consultation (Routine) - Specialty Diagnoses / Procedures Referred By Contdavide t Referred To Contact Orthopaedics Diagnoses Closed fracture of distal end of right radius, unspecified fracture morphology, initial encounter Hoang Castellanos APRN [address] [place] [address] [facility] [place] [address] Referral ID Status Reason Start Date Expiration Date Visits Requested Visits Authorized [id number] Specialty Service Requested 02/05/2020 02/04/2021 6 6 * Diagnostic Test (Routine) - Closed Specialty Diagnoses / Procedures Referred By Contac t Referred To Contact Radiology Diagnoses Chronic right-sided low back pain with right-sided sciatica Procedures MRI Lumbar Spine wo Contrast (Generic) Hoang Castellanos APRN [address] [facility] [place] [address] [facility] [address] [place] [address] Referral ID Status Reason Start Date Expiration Date V isits Requested Visits Authorized [id number] Closed Specialty Service Requested 02/05/2020 08/07/2021 1 1 Reason for Visit * Reason Comments Diabetes Hypertension Right Arm Pain Encounter Details Date Type Department Care Team (Late st Contact Info) Description 02/05/2020 11:30 AM EDT Office Visit Primary Care at [facility] [place] [address] Hoang Castellanos, SAM [address] FAM[facility] [place], [place] [phone] Closed fracture of distal end of right [...] a 59 y.o. female presenting to the [facility] Primary Care Clinic HPI Patient presents today [...] MRI c-spine 04/2009 MRI lumbar 2012 Functional anglican program had helped but that was prior [...] below. ? Electronically signed by: Bandar Tejeda [facility] ([phone]), at 02/19/2020 10:08 AM Narrative 02/19/2020 10:08 [...] the clinical situation (Reference- Sugark Et Al, [id number]). Findings: (Prevalence in patients without low back pain), discdegeneration (decreased T2 signal, height loss, bulge) (91%), disc T2-signal loss(83%), disc height loss (56%), disc bulge (64%), disc protrusion (32%), annularfissure (38%). Thank you for letting us participate in the care of this patient. Forquestions regarding this report, please contact the number below. Electronically signed by: Bandar Tejeda [facility]([phone]), at 02/19/2020 10:08 AM Hoang Castellanos APRN [...] below. ? Electronically signed by: Flory Bedoya [facility] ([phone]), at 02/05/2020 1:43 PM Narrative 02/05/2020 1:43 [...] number below. Electronically signed by: Flory Bedoya [facility]([phone]), at 02/05/2020 1:43 PM Hoang Castellanos WINDROWER OPERATOR IMG DX ORDERABLES * XR Forearm Right [...] below. ? Electronically signed by: Flory Bedoya [facility] ([phone]), at 02/05/2020 12:53 PM Narrative 02/05/2020 12:53 [...] number below. Electronically signed by: ANGUS Cortez [facility]([phone]), at 02/05/2020 12:53 PM Hoang Castellanos APRN [...] sciatica documented in this encounter Care Teams Manager Balance Relationship Specialty Start Date End Date Hoang Castellanos APRN [address] [place] [address] PCP - General Family Medicine 12/07/19 03/11/20 documented as of this encounter
--- OUTSIDE RECORDS SUMMARY | 2024-08-07 14:11 | XMS_ITS | Encounter Summary ---
[place] [address] Care Team Providers Care Concrete Bucket Hooker Name Role Phone Hoang Castellanos APRN Primary Care Provider Reason for Visit * Reason Onset Date Comments Medication Refill 04/01/2020 Encounter Details Date Type Department Care Team (Late st Contact Info) Description 04/01/2020 Refill Primary Care at [facility] [address] [facility] [place] [phone] Isadora Hidalgo LPN Age-related osteoporosis without current [...] 1:54 PM EDT Received a fax from [employer] requesting an Rx for Fosamax, Last Prescription [...] osteoporosis documented in this encounter Care Teams Concrete Bucket Hooker Relationship Specialty Start Date End Date Hoang Castellanos, LAST PATTERN GRADER [address] [place] [address] PCP - General Family Medicine 03/12/20 documented as of this encounter
--- OUTSIDE RECORDS SUMMARY | 2024-08-07 14:11 | XMS_ITS | Encounter Summary ---
[place] [address] Care Team Providers Care Marketing Systems Analyst Name Role Phone Hoang Castellanos APRN Primary Care Provider Reason for Visit * Reason Onset Date Comments Medication Refill 04/22/2020 Medication Refill 04/28/2020 Encounter Details Date Type Department Care Team (Late st Contact Info) Description 04/22/2020 Refill Primary Care at [facility] [place] [phone] Isadora Hidalgo LPN B12 deficiency Social History [...] 2:19 PM EDT Received a fax from [employer] Requesting Rx for aspirin metoprolol vitamin B12, vitamin D3 This prescription got send to [facility] clarify with patient she uses [facility] for all her medications only time she uses [facility] is if she needs antibiotics. documented in this encounter Plan of Treatment Not on file documented as of this encounter Visit Diagnoses Diagnosis B12 deficiency Other B-complex deficiencies documented in this encounter Care Teams Marketing Systems Analyst Relationship Specialty Start Date End Date Hoang Castellanos, ONSITE CASE MANAGER [address] [place] [address] PCP - General Family Medicine 03/12/20 documented as of this encounter
--- OUTSIDE RECORDS SUMMARY | 2024-08-07 14:11 | XMS_ITS | Encounter Summary ---
Author Organization [facility] [place] [address] Care Team Providers Care Primary Special Education Teacher Name Role Phone Hoang Castellanos APRN Primary Care Provider [phone] Reason for Referral * Diagnostic Test (Routine) - Closed Specialty Diagnoses / Procedures Referred By Contac t Referred To Contact Radiology Diagnoses Chronic right-sided low back pain with right-sided sciatica Procedures MRI Lumbar Spine wo Contrast (Generic) Hoang Castellanos APRN [address] [place] [address] [facility] Rad Mri [address] [place] [address] Referral ID Status Reason Start Date Expiration Date V isits Requested Visits Authorized [id number] Closed Specialty Service Requested 02/05/2020 08/07/2021 1 1 Reason for Visit * Diagnostic Test (Routine) - Closed Specialty Diagnoses / Procedures Referred By Contac t Referred To Contact Radiology Diagnoses Chronic right-sided low back pain with right-sided sciatica Procedures MRI Lumbar Spine wo Contrast (Generic) Hoang Castellanos APRN [address] [place] [address] [facility] Rad Mri [address] [place] [address] Referral ID Status Reason Start Date Expiration Date V isits Requested Visits Authorized [id number] Closed Specialty Service Requested 02/05/2020 08/07/2021 1 1 Encounter Details Date Type Department Care Team (Latest Contact Info) Description 02/19/2020 7:23 AM EDT - 02/19/2020 11:59 PM EDT Hospital Encounter Radiology MRI at [facility] [address] [place] [address] Hoang Castellanos, INSPECTOR OPTICAL INSTRUMENT [address] FAM[facility], [place] [id number] Chronic right-sided low back pain with right-sided [...] times daily. 02/26/2021 meloxicam (MOBIC) 15 mg TabletIndications:Facing Slitter randell left SI joint pain Take 1 [...] the clinical situation (Reference- Sugark Et Al, [id number]). Findings: (Prevalence in patients without low back pain), discdegeneration (decreased T2 signal, height loss, bulge) (91%), disc T2-signal loss(83%), disc height loss (56%), disc bulge (64%), disc protrusion (32%), annularfissure (38%). Thank you for letting us participate in the care of this patient. Forquestions regarding this report, please contact the number below. Electronically signed by: Bandar Tejeda [facility]([phone]), at 02/19/2020 10:08 AM Hoang Castellanos APRN IMShahri[facility] MRI ORDERABLES documented in this encounter Visit Diagnoses Diagnosis Chronic right-sided low back pain with right-sided sciatica documented in this encounter Care Teams Primary Special Education Teacher Relationship Specialty Start Date End Date Hoang Castellanos APRN [address] [place] [address] PCP - General Family Medicine 12/07/19 03/11/20 documented as of this encounter
--- OUTSIDE RECORDS SUMMARY | 2024-08-07 14:11 | XMS_ITS | Encounter Summary ---
Author Organization [facility] Address [facility] [place] [address] Care Team Providers Care Tax Commissioner Name Role Phone Hoang Castellanos APRN Primary Care Provider Reason for Visit * Reason Comments Establish Care Right distal radius and ulnar styloid fracture 02/04/20 * Consultation (Routine) - Specialty Diagnoses / Procedures Referred By Vanita dimas Referred To Contact Orthopaedics Diagnoses Closed fracture of distal end of right radius, unspecified fracture morphology, initial encounter Hoang Castellanos APRN [address] [facility] [place] [address] [facility] 10 [place] [address] Referral ID Status Reason Start Date Expiration Date Visits Requested Visits Authorized [id number] Specialty Service Requested 02/05/2020 02/04/2021 6 6 Encounter Details Date Type Department Care Team (Late st Contact Info) Description 02/06/2020 10:00 AM EDT Office Visit Orthopaedics at [facility] 10 [place] [address] Talita Hernandez MD [address] [facility] [place] [address] Other closed intra-articular fracture of [...] G89.29 ??? Lumbago M54.5 ??? Atherosclerosis of [place] coronary artery of [place] heart without angina pectoris I25.10 ??? Smokes [...] BIOPSY performed by Ken Sanders MD at [facility] ??? PRO UPPER GI ENDOSCOPY, BIOPSY N/A 09/19/2018 UPPER GASTROINTESTINAL ENDOSCOPY,WITH BIOPSY SINGLE OR MULTIPLE (WRVU 2.49) performed by Tyron Mercado MD at [facility] ??? TONSILLECTOMY ??? UPPER GI ENDOSCOPY, EXAM 12/04/2010 UPPER GI ENDOSCOPY performed by DEE WRIGHT at [facility] Family History Problem (# of [...] (H) 01/01/2020 Lab Results Component Value Date [id number] 603 02/07/2019 Lab Results Component Value Date [...] G89.29 ??? Lumbago M54.5 ??? Atherosclerosis of [place] coronary artery of [place] heart without angina pectoris I25.10 ??? Smokes [...] BIOPSY performed by Ken Sanders MD at [facility] ??? PRO UPPER GI ENDOSCOPY, BIOPSY N/A 09/19/2018 UPPER GASTROINTESTINAL ENDOSCOPY,WITH BIOPSY SINGLE OR MULTIPLE (WRVU 2.49) performed by Tyron Mercado MD at [facility] ??? TONSILLECTOMY ??? UPPER GI ENDOSCOPY, EXAM 12/04/2010 UPPER GI ENDOSCOPY performed by DEE WRIGHT at [facility] Family History Problem (# of [...] encounter documented in this encounter Care Teams Tax Commissioner Relationship Specialty Start Date End Date Hoang Castellanos, SAM [address] [place] [address] PCP - General Family Medicine 12/07/19 03/11/20 documented as of this encounter
--- OUTSIDE RECORDS SUMMARY | 2024-08-07 14:11 | XMS_ITS | Encounter Summary ---
Author Organization [facility] [place] [address] Care Team Providers Care Gas Operator Name Role Phone Hoang Castellanos APRN Primary Care Provider Reason for Visit * Reason Comments Follow-up Right intra-articula r distal radius and ulna fracture 02/04/20 Encounter Details Date Type Department Care Team (Late st Contact Info) Description 02/21/2020 11:30 AM EDT Office Visit Orthopaedics at [facility] [place] [address] Closed fracture of distal end of right [...] sequela documented in this encounter Care Teams Gas Operator Relationship Specialty Start Date End Date Hoang Castellanos, DIRECTOR OF EMAIL MARKETING [address] [place] [address] PCP - General Family Medicine 12/07/19 03/11/20 documented as of this encounter
--- OUTSIDE RECORDS SUMMARY | 2024-08-07 14:11 | XMS_ITS | Encounter Summary ---
[place] [address] Care Team Providers Care Batch Tank Controller Name Role Phone Hoang Castellanos APRN Primary Care Provider [phone] Encounter Details Date Type Department Care Team (Late st Contact Info) Description 02/26/2020 Telephone Primary Care at [facility] 10 [place] [phone] Devi Mccormick RN Social History Tobacco Use [...] on filedocumented in this encounter Care Teams Batch Tank Controller Relationship Specialty Start Date End Date Hoang Castellanos APRN [address] [place] [address] PCP - General Family Medicine 12/07/19 03/11/20 documented as of this encounter
--- OUTSIDE RECORDS SUMMARY | 2024-08-07 14:11 | XMS_ITS | Encounter Summary ---
Author Organization [facility] [place] [address] Care Team Providers Care Animal Trapper Name Role Phone Hoang Castellanos APRN Primary Care Provider Encounter Details Date Type Department Care Team (Late st Contact Info) Description 04/04/2020 Telephone Orthopaedics at [facility] 10 [facility] [place] [phone] Talita Hernandez MD [address] [place] [address] Social History Tobacco Use Types Packs/Day Years [...] filedocumented in this encounter Care Teams Animal Trapper Relationship Specialty Start Date End Date Hoang Castellanos APRN [address] [place] [address] PCP - General Family Medicine 03/12/20 documented as of this encounter
--- OUTSIDE RECORDS SUMMARY | 2024-08-07 14:11 | XMS_ITS | Encounter Summary ---
Author Organization [facility] [place] [address] Care Team Providers Care Evaporative Cooler Installer Name Role Phone Hoang Castellanos APRN Primary Care Provider Encounter Details Date Type Department Care Team (Latest Contact Info) Description 02/05/2020 12:30 PM EDT Ancillary Procedure Radiology XRay at [facility] at [facility] [address] [place] [phone] Hoang Castellanos APRN [address] [facility] [facility] [place] [address] Right forearm pain Social History Tobacco Use [...] limb documented in this encounter Care Teams Evaporative Cooler Installer Relationship Specialty Start Date End Date Hoang Castellanos APRN [address] [place] [address] PCP - General Family Medicine 12/07/19 03/11/20 documented as of this encounter
--- OUTSIDE RECORDS SUMMARY | 2024-08-07 14:11 | XMS_ITS | Encounter Summary ---
[place] [address] Care Team Providers Care Crop Duster Helper Name Role Phone Hoang Castellanos APRN Primary Care Provider Encounter Details Date Type Department Care Team (Latest Contact Info) Description 02/12/2020 10:00 AM EDT Ancillary Procedure Radiology XRay at [facility] at [facility] [address] [facility] [place] [address] Talita Hernandez MD [address] [facility] [address] ORTHOPAEDIC [place] [address] Other closed intra-articular fracture of distal end [...] encounter documented in this encounter Care Teams Crop Duster Helper Relationship Specialty Start Date End Date Hoang Castellanos, SAM [address] [place] [address] PCP - General Family Medicine 12/07/19 03/11/20 documented as of this encounter
--- OUTSIDE RECORDS SUMMARY | 2024-08-07 14:12 | XMS_ITS | Encounter Summary ---
Author Organization [facility] Address [facility] [place] [address] Care Team Providers Care Transplant Nurse Practitioner Name Role Phone Hoang Castellanos APRN Primary Care Provider Encounter Details Date Type Department Care Team (Latest Contact Info) Description 01/01/2020 8:30 AM EDT Laboratory Appointment Laboratory at [facility] [place] [phone] Essential hypertension; Type 2 diabetes mellitus without [...] APRN CHEMISTRY ORDERABLES LABORATORY [address] [place] [address] * Differential, Automated (01/01/2020 8:33 AM EDT) [...] Spec In Lab / APD Hoang Castellanos BANKING CENTER MANAGER HEMATOLOGY ORDERABLE S LABORATORY [address] [place] [address] * (ABNORMAL) Hemogram (01/01/2020 8:33 AM EDT) [...] APRN HEMATOLOGY ORDERABLE S Performing Organization Address [facility] Co de Phone Number LABORATORY [address] [facility] [place] [address] * (ABNORMAL) Hemoglobin A1c (01/01/2020 8:33 AM EDT) Hemoglobin A1c 6.0(H) 4.3 - 5.6 % LABORATORY Estimated Average Glucose 126 mg/dL LABORATORY Blood specimen (specimen) 01/01/2020 8:33 AM EDT 01/01/2020 11:11 AM EDT Narrative Resulting Agency Comment Spec In Lab / APD Hoang Castellanos APRN CHEMISTRY ORDERABLES Performing Organization Address [facility] Co de Phone Number LABORATORY [address] [facility] [place] [address] * (ABNORMAL) Comprehensive metabolic panel (non-fasting) (01/01/2020 [...] of body mass or the acutely ill. [email or web address] Mob[employer]kf eGFR 81 >=60 mL/min/1. 73 m?? LABORATORY Comment: The eGFR was calculated using the CKD-EPI equation. As with all creatinine based estimates of kidney function, eGFR values calculated with the CKD-EPI equation are not accurate in patients with acute kidney failure, extremes of body mass or the acutely ill. [email or web address] Blood specimen (specimen) 01/01/2020 8:33 AM EDT 01/01/2020 11:13 AM EDT Narrative Resulting Agency Comment Spec In Lab / APD Hoang Castellanos APRN CHEMISTRY ORDERABLES LABORATORY 10 [place] [address] documented in this encounter Visit Diagnoses Diagnosis Essential hypertension Unspecified essential hypertension Type 2 diabetes mellitus without complication, without long-term current use of insulin Hypothyroidism, acquired Unspecified hypothyroidism documented in this encounter Care Teams Transplant Nurse Practitioner Relationship Specialty Start Date End Date Hoang Castellanos APRN [address] [place] [address] PCP - General Family Medicine 12/07/19 03/11/20 documented as of this encounter
--- OUTSIDE RECORDS SUMMARY | 2024-08-07 14:12 | XMS_ITS | Encounter Summary ---
[place] [address] Care Team Providers Care Pattern Maker Programer Name Role Phone Yisel Marroquin MD Primary Care Provider Unavail able Encounter Details Date Type Department Care Team (Late st Contact Info) Description 01/05/2019 Telephone Cardiology at [address] [phone] Jessica Galindo, RN Social History Tobacco Use [...] on filedocumented in this encounter Care Teams Pattern Maker Programer Relationship Specialty Start Date End Date Yisel Marroquin MD PCP - General 11/13/18 03/05/19 documented as of this encounter
--- OUTSIDE RECORDS SUMMARY | 2024-08-07 14:12 | XMS_ITS | Encounter Summary ---
[place] [address] Care Team Providers Care Underpresser Hand Name Role Phone Yisel Marroquin MD Primary Care Provider Unavail able Reason for Visit * Reason Onset Date Comments Medication Refill 06/04/2019 Encounter Details Date Type Department Care Team (Late st Contact Info) Description 06/04/2019 Refill Primary Care at [facility] 10 [place] [phone] Yisel Marroquin MD Gastroesophageal reflux disease, esophagitis [...] Comments: rx was sent on 06/01/19. Pharmacy: [facility] * Telephone Encounter - Shannon Chung RN - 06/04/2019 9:29 AM EST PCP: Yisel Marroquin MD Medication: omeprazole 20mg BID Last Appt: 05/04/2019 Future Appt: 08/06/2019 Comments: pharmacy called stating that they are missing rx for omeprazole. Need 28 worth of rx. Last prescribed 10/19/18 1 year worth. Rest of rx sent Pharmacy: [facility] documented in this encounter Plan of Treatment Not on file documented as of this encounter Visit Diagnoses Diagnosis Gastroesophageal reflux disease, esophagitis presence not specified Asthma with acute exacerbation, unspecified asthma severity, unspecified whether persistent documented in this encounter Care Teams Underpresser Hand Relationship Specialty Start Date End Date Yisel Marroquin MD PCP - General General Internal Medicine 03/06/19 0 documented as of this encounter
--- OUTSIDE RECORDS SUMMARY | 2024-08-07 14:12 | XMS_ITS | Encounter Summary ---
[place] [address] Care Team Providers Care Automatic Beading Lathe Operator Name Role Phone Yisel Marroquin MD Primary Care Provider Unavail able Encounter Details Date Type Department Care Team (Late st Contact Info) Description 05/23/2019 Telephone Primary Care at [facility] [place] [address] Shannon Chung, RN Social History Tobacco Use [...] called asking for rx to sent [facility]. rx sent * Telephone Encounter - Shannon Chung RN - 05/25/2019 5:11 PM EDT Discussed with PCP, pt instructed to increase lisinopril to 15mg QD, continue to monitor with goal to <120/80 * Telephone Encounter - Shannon Chung RN - 05/23/2019 3:34 PM EDT Jeannie called to give update of her BP. She has this taken once a week at [facility]. She states that it has been really good other than 05/22/19. Other BP has been in the 140s/70s. On 05/22: 164/85. She contributes this to having pneumonia, anxiety, and stress. PCP notified. documented in this encounter Plan of Treatment Not on file documented as of this encounter Visit Diagnoses Not on filedocumented in this encounter Care Teams Automatic Beading Lathe Operator Relationship Specialty Start Date End Date Yisel Marroquin MD PCP - General General Internal Medicine 03/06/19 0 documented as of this encounter
--- OUTSIDE RECORDS SUMMARY | 2024-08-07 14:12 | XMS_ITS | Encounter Summary ---
[place] [address] Care Team Providers Care Customs Patrol Officer Name Role Phone Yisel Marroquin MD Primary Care Provider Unavail able Encounter Details Date Type Department Care Team (Late st Contact Info) Description 04/06/2019 Telephone Pharmacy at [facility] 10 [place] [address] Lyly Dixon, [facility] Social History Tobacco Use Types Packs/Day Years [...] Miscellaneous Notes * [facility] - [facility] 9:43 AM EDT Jeannie Lawson Trisha [phone] is scheduled for an office visit with [...] for flu shot at [facility]. Medications 04/09/19 2340 Medication Sig Taking? ibuprofen (ADVIL;MOTRIN) 600 mg [...] filedocumented in this encounter Care Teams Customs Patrol Officer Relationship Specialty Start Date End Date Yisel Marroquin MD PCP - General General Internal Medicine 03/06/19 0 documented as of this encounter
--- OUTSIDE RECORDS SUMMARY | 2024-08-07 14:12 | XMS_ITS | Encounter Summary ---
[place] [address] Care Team Providers Care University Partnership Rep Name Role Phone Hoang Castellanos APRN Primary Care Provider Encounter Details Date Type Department Care Team (Late st Contact Info) Description 12/28/2019 Telephone Primary Care at [facility] 10 [place] [phone] Isadora Hidalgo LPN Social History Tobacco Use [...] 1:55 PM EDT ----- Message from Hoang Casetllanos APRN sent at 12/28/2019 12:21 PM EDT [...] APRN Sent: 12/27/2019 2:11 PM EDT To: [facility] Primary Care Nurse Can we please see if we can add on A1c-I didn't realized the previous order on 12/22. documented in this encounter Plan of Treatment Not on file documented as of this encounter Visit Diagnoses Not on filedocumented in this encounter Care Teams University Partnership Rep Relationship Specialty Start Date End Date Hoang Castellanos APRN [address] [place] [address] PCP - General Family Medicine 12/07/19 03/11/20 documented as of this encounter
--- OUTSIDE RECORDS SUMMARY | 2024-08-07 14:12 | XMS_ITS | Encounter Summary ---
Author Organization [facility] Address [facility] [place] [address] Care Team Providers Care Senior Director Marketing Name Role Phone Yisel Marroquin MD Primary Care Provider Unavail able Encounter Details Date Type Department Care Team (Latest Contact Info) Description 02/07/2019 12:30 PM EDT Laboratory Appointment Laboratory at [facility] [place] [address] Disorder of iron metabolism; Status post bariatric [...] In Lab / APD Sidra Del Toro CONVERTER SUPERVISOR CHEMISTRY ORDERAB LES [facility] [address] [place] [address] * Folate, serum (02/07/2019 12:41 PM EDT) Folate 8.6 4.8 - 24.2 ng/mL [facility] Blood specimen (specimen) 02/07/2019 12:41 PM EDT 02/07/2019 3:55 PM EDT Narrative Resulting Agency Comment Spec In Lab / APD Sidra Bray Alverto SAM CHEMISTRY ORDERAB LES Performing Organization Address [facility]/ZIP Co de Phone Number [facility] [place] [address] * Vitamin D, 25-Hydroxy (02/07/2019 12:41 PM EDT) Vitamin D Total 25 OH 36 30 - 100 ng/mL [facility] [...] be considered to be insufficient or deficient. http://MySQL/nkf-guidelines http://MySQL/nejm-VitD The IDS iSYS Vitamin D Immunoassay detects both 25-OH Vitamin D2 and 25-OH Vitamin D3, but only a total Vitamin D concentration is reported. Blood specimen (specimen) 02/07/2019 12:41 PM EDT 02/08/2019 7:27 AM EDT Narrative Resulting Agency Comment Spec In Lab / APD Sidra T Alverto VARGAS CHEMISTRY ORDERAB LES Performing Organization Address [facility] Co de Phone Number [facility] [place] [address] * Vitamin B1, whole blood (02/07/2019 12:41 PM EDT) Vit B1 Lvl Wb (NOVEMBER) 128 70 - 180 nmol/L [facility] Comment: ADDITIONAL INFORMATION This test was developed and its performance characteristics determined by [facility] in a manner consistent with CLIA requirements. This test has not been cleared or approved by the U.S. Food and Drug Administration. Test Performed by: [facility] [address] [place] [address] Blood specimen (specimen) 02/07/2019 12:41 PM EDT 02/07/2019 5:37 PM EDT Narrative Resulting Agency Comment Spec In Lab / APD Sidra Del Toro CONVERTER SUPERVISOR LAB SEND OUT ORDE RABLES [facility] [address] [place] [address] * Vitamin B12 (02/07/2019 12:41 PM EDT) Vitamin B12 603 232 - 1,245 pg/mL [facility] Blood specimen (specimen) 02/07/2019 12:41 PM EDT 02/07/2019 3:55 PM EDT Narrative Resulting Agency Comment Spec In Lab / APD Sidra Del Toro CONVERTER SUPERVISOR CHEMISTRY ORDERAB LES Performing Organization Address City/[facility]/ZIP Co de Phone Number [facility] [place] [address] * (ABNORMAL) PTH (02/07/2019 12:41 PM EDT) Parathyroid Hormone 71(H) 15 - 65 pg/mL [facility] Blood specimen (specimen) 02/07/2019 12:41 PM EDT 02/07/2019 3:55 PM EDT Narrative Resulting Agency Comment Spec In Lab / APD Sidar Del Toro CONVERTER SUPERVISOR CHEMISTRY ORDERAB LES Performing Organization Address City/[facility]/ZIP Co de Phone Number [facility] [place] [address] * (ABNORMAL) Ferritin (02/07/2019 12:41 PM EDT) Ferritin 19(L) 30 - 400 ng/mL [facility] Comment: Pediatric reference ranges not verified at [facility], interpret with caution. Reference ranges for females greater than 50 years of age approach values for men, i.e., 30-400 ng/mL. Blood specimen (specimen) 02/07/2019 12:41 PM EDT 02/07/2019 2:05 PM EDT Narrative Resulting Agency Comment Spec In Lab / APD Sidra Del Toro CONVERTER SUPERVISOR CHEMISTRY ORDERAB LES Performing Organization Address City/[facility] Co de Phone Number [facility] [address] [place] [address] * (ABNORMAL) Iron and TIBC (02/07/2019 12:41 PM EDT) Iron 64 30 - 150 mcg/dL [facility] TIBC 351 250 - 450 mcg/dL [facility] Iron Saturation 18(L) 20 - 50 % [facility] Blood specimen (specimen) 02/07/2019 12:41 PM EDT 02/07/2019 2:05 PM EDT Narrative Resulting Agency Comment Spec In Lab / APD Sidra Del Toro CONVERTER SUPERVISOR CHEMISTRY ORDERAB LES Performing Organization Address [facility] Co de Phone Number [facility] [address] [place] [address] documented in this encounter Visit Diagnoses Diagnosis Disorder of iron metabolism Other disorders of iron metabolism Status post bariatric surgery Bariatric surgery status Intestinal malabsorption, unspecified type Gastroesophageal reflux disease, esophagitis presence not specified Vitamin D deficiency Unspecified vitamin D deficiency History of diabetes mellitus Personal history of other endocrine, metabolic, and immunity disorders documented in this encounter Care Teams Senior Director Marketing Relationship Specialty Start Date End Date Yisel Marroquin MD PCP - General 11/13/18 03/05/19 documented as of this encounter
--- OUTSIDE RECORDS SUMMARY | 2024-08-07 14:12 | XMS_ITS | Encounter Summary ---
Author Organization [place] [address] Care Team Providers Care Arson Investigator Name Role Phone [place] Holguin APRN Primary Care Provider [phone] Encounter Details Date Type Department Care Team (Late st Contact Info) Description 01/01/2020 Orders Only Primary Care at [facility] [address] [facility] [place] [address] [place] Holguin APRN [address] [place] [address] Essential hypertension; Hypothyroidism, acquired; Type 2 diabetes [...] Spec In Lab / APD [place] Holguin MEDICAL SERVICE REPRESENTATIVE CHEMISTRY ORDERABLES [facility] [address] [place] [address] * (ABNORMAL) Comprehensive metabolic panel (non-fasting) (01/01/2020 [...] of body mass or the acutely ill. http://Diamond Mind/[facility] eGFR 81 >=60 mL/min/1. 73 m?? [facility]ORY Comment: The eGFR was calculated using the CKD-EPI equation. As with all creatinine based estimates of kidney function, eGFR values calculated with the CKD-EPI equation are not accurate in patients with acute kidney failure, extremes of body mass or the acutely ill. http://Di[employer] Mind/[facility] Blood specimen (specimen) 01/01/2020 8:33 AM EDT 01/01/2020 11:13 AM EDT Narrative Resulting Agency Comment Spec In Lab / APD [place] Holguin APRN CHEMISTRY ORDERABLES Performing Organization Address [facility] Co de Phone Number [facility]ATORY [address] [place] [address] * (ABNORMAL) Hemoglobin A1c (01/01/2020 8:33 AM EDT) Hemoglobin A1c 6.0(H) 4.3 - 5.6 % LAB[facility] Estimated Average Glucose 126 mg/dL [facility] Blood specimen (specimen) 01/01/2020 8:33 AM EDT 01/01/2020 11:11 AM EDT Narrative Resulting Agency Comment Spec In Lab / APD [place] Holguin APRN CHEMISTRY ORDERABLES Performing Organization Address City/[facility] Co de Phone Number [facility]ATORY [address] [place] [address] documented in this encounter Visit Diagnoses Diagnosis Essential hypertension Unspecified essential hypertension Hypothyroidism, acquired Unspecified hypothyroidism Type 2 diabetes mellitus without complication, without long-term current use of insulin documented in this encounter Care Teams Arson Investigator Relationship Specialty Start Date End Date [place] Holguin, MEDICAL SERVICE REPRESENTATIVE [address] [place] [address] PCP - General Family Medicine 12/07/19 03/11/20 documented as of this encounter
--- OUTSIDE RECORDS SUMMARY | 2024-08-07 14:12 | XMS_ITS | Encounter Summary ---
[place] [address] Care Team Providers Care Mica Spreader Name Role Phone Yisel Marroquin MD Primary Care Provider Unavail able Encounter Details Date Type Department Care Team (Late st Contact Info) Description 01/05/2019 Orders Only [place] [address] Sidra Del Toro, COMMERCIAL FISHING VESSEL OPERATOR Social History Tobacco Use Types Packs/Day Years [...] on filedocumented in this encounter Care Teams Mica Spreader Relationship Specialty Start Date End Date Yisel Marroquin MD PCP - General 11/13/18 03/05/19 documented as of this encounter
--- OUTSIDE RECORDS SUMMARY | 2024-08-07 14:12 | XMS_ITS | Encounter Summary ---
[place] [address] Care Team Providers Care Tubular Riveter Name Role Phone Yisel Marroquin MD Primary Care Provider Unavail able Reason for Visit * Reason Comments Medication Refill Encounter Details Date Type Department Care Team (Late st Contact Info) Description 07/20/2019 Refill Primary Care at [facility] [address] [place] [phone] Yisel Marroquin MD Social History Tobacco Use [...] on filedocumented in this encounter Care Teams Tubular Riveter Relationship Specialty Start Date End Date Yisel Marroquin MD PCP - General General Internal Medicine 03/06/19 0 documented as of this encounter
--- OUTSIDE RECORDS SUMMARY | 2024-08-07 14:12 | XMS_ITS | Encounter Summary ---
[place] [address] Care Team Providers Care Energy Control Officer Name Role Phone Yisel Marroquin MD Primary Care Provider Unavail able Encounter Details Date Type Department Care Team (Late st Contact Info) Description 01/05/2019 Notes [place] [address] Sidra Del Toro, BUS BOY Social History Tobacco Use Types Packs/Day Years [...] on filedocumented in this encounter Care Teams Energy Control Officer Relationship Specialty Start Date End Date Yisel Marroquin MD PCP - General 11/13/18 03/05/19 documented as of this encounter
--- OUTSIDE RECORDS SUMMARY | 2024-08-07 14:12 | XMS_ITS | Encounter Summary ---
[facility] [place] [address] Care Team Providers Care Housing Case Manager Name Role Phone Yisel Marroquin MD Primary Care Provider Unavail able Reason for Visit * Reason Comments Medication Refill Encounter Details Date Type Department Care Team (Late st Contact Info) Description 02/26/2019 Refill Cardiology at [address] [address] Freddy Mejias MD [facility] [place] [address] Medication Refill Social History Tobacco Use Types [...] on filedocumented in this encounter Care Teams Housing Case Manager Relationship Specialty Start Date End Date Yisel Marroquin MD PCP - General 11/13/18 03/05/19 documented as of this encounter
--- OUTSIDE RECORDS SUMMARY | 2024-08-07 14:12 | XMS_ITS | Encounter Summary ---
[place] [address] Care Team Providers Care Bench Mover Name Role Phone Hoang Castellanos APRN Primary Care Provider [phone] Encounter Details Date Type Department Care Team (Late st Contact Info) Description 01/18/2020 Orders [place] [address] Priya Charles APRN [facility] [place] [address] Iron deficiency Social History Tobacco Use Types [...] unspecified documented in this encounter Care Teams Bench Mover Relationship Specialty Start Date End Date Hoang Castellanos APRN [address] [place] [address] PCP - General Family Medicine 12/07/19 03/11/20 documented as of this encounter
--- OUTSIDE RECORDS SUMMARY | 2024-08-07 14:12 | XMS_ITS | Encounter Summary ---
[place] [address] Care Team Providers Care Geology Instructor Name Role Phone Hoang Castellanos APRN Primary Care Provider Encounter Details Date Type Department Care Team (Late st Contact Info) Description 01/02/2020 Telephone Primary Care at [facility] [place] [phone] Isadora Hidalgo LPN Social History Tobacco Use [...] on filedocumented in this encounter Care Teams Geology Instructor Relationship Specialty Start Date End Date Hoang Castellanos APRN [address] [place] [address] PCP - General Family Medicine 12/07/19 03/11/20 documented as of this encounter
--- OUTSIDE RECORDS SUMMARY | 2024-08-07 14:12 | XMS_ITS | Encounter Summary ---
Author Organization [facility] [place] [address] Care Team Providers Care Burling And Joining Supervisor Name Role Phone Yisel Marroquin MD Primary Care Provider Unavail able Reason for Visit * Diagnostic Test (Routine) - Closed Specialty Diagnoses / Procedures Referred By Vanita dimas Referred To Contact Radiology Diagnoses Long-term use of high-risk medication Other osteoporosis without current pathological fracture Procedures DXA Central-Spine, Hip, And/Or Whole Body (Generic) Yisel Marroquin MD [address] [place] [address] [facility] Rad Xray [address] [place] [id number] Referral ID Status Reason Start Date Expiration Date V isits Requested Visits Authorized [id number] Closed Specialty Service Requested 02/07/2019 02/07/2020 1 1 Encounter Details Date Type Department Care Team (Latest Contact Info) Description 02/20/2019 10:00 AM EDT Ancillary Procedure Radiology D[facility] at [facility] at [address] [address] Yisel Marroquin MD Long-term use [...] BMD measurements and plots are available in EQuibly under the imaging tab. Paper copies will be sent to providers without EQuibly access. If you have received this report without the data sheet and do not have access to maufait, please contact Radiology Senior Investment Analyst at [phone] Tuesday thru Tuesday 8am-4pm. Thank you for letting us participate in the care of this patient. For questions regarding this report, please contact the number below. ? Electronically signed by: Rinku Wilkins [facility] ([phone]), at 02/20/2019 10:58 AM Narrative 02/20/2019 10:58 AM EDT EXAMINATION: DXA CENTRAL-SPINE, HIP, AND/OR WHOLE BODY (GENERIC) CLINICAL HISTORY: Hx bariatric surgery amd intermediate project manager PPI use, rec by gen surg TECHNIQUE: [...] copies will be sent to providers without maufait access.If you have received this report without the data sheet and do not haveaccess to maufait, please contact Radiology Senior Investment Analyst at [phone] Tuesday thruFriday 8am-4pm. Thank you for letting us participate in the care of this patient. Forquestions regarding this report, please contact the number below. Electronically signed by: Rinku Wilkins [facility]([phone]), at 02/20/2019 10:58 AM Yisel Marroquin MD IMG DEXA ORDERABLES documented in this encounter Visit Diagnoses Diagnosis Long-term use of high-risk medication Other osteoporosis without current pathological fracture documented in this encounter Care Teams Burling And Joining Supervisor Relationship Specialty Start Date End Date Yisel Marroquin MD PCP - General 11/13/18 03/05/19 documented as of this encounter
--- OUTSIDE RECORDS SUMMARY | 2024-08-07 14:12 | XMS_ITS | Encounter Summary ---
Author Organization [place] [address] Care Team Providers Care Accounting Manager Name Role Phone Yisel Marroquin MD Primary Care Provider Unavail able Encounter Details Date Type Department Care Team (Late st Contact Info) Description 04/12/2019 Telephone Primary Care at [facility] [address] [place] [address] Shannon Cruz RN Social History Tobacco Use [...] on filedocumented in this encounter Care Teams Accounting Manager Relationship Specialty Start Date End Date Yisel Marroquin MD PCP - General General Internal Medicine 03/06/19 0 documented as of this encounter
--- OUTSIDE RECORDS SUMMARY | 2024-08-07 14:12 | XMS_ITS | Encounter Summary ---
[place] [address] Care Team Providers Care Airplane Electrician Name Role Phone Yisel Marroquin MD Primary Care Provider Unavail able Reason for Visit * Reason Comments Medication Refill Encounter Details Date Type Department Care Team (Late st Contact Info) Description 06/15/2019 Refill Primary Care at [facility] [address] [place] [phone] Yisel Marroquin MD Social History Tobacco Use [...] on filedocumented in this encounter Care Teams Airplane Electrician Relationship Specialty Start Date End Date Yisel Marroquin MD PCP - General General Internal Medicine 03/06/19 0 documented as of this encounter
--- OUTSIDE RECORDS SUMMARY | 2024-08-07 14:12 | XMS_ITS | Encounter Summary ---
[place] [address] Care Team Providers Care Medical Manager Name Role Phone Yisel Marroquin MD Primary Care Provider Unavail able Encounter Details Date Type Department Care Team (Late st Contact Info) Description 05/04/2019 Telephone Primary Care at [facility] [place] [address] Fabby Freedman APRN Social History Tobacco Use [...] filedocumented in this encounter Care Teams Medical Manager Relationship Specialty Start Date End Date Yisel Marroquin MD PCP - General General Internal Medicine 03/06/19 0 documented as of this encounter
--- OUTSIDE RECORDS SUMMARY | 2024-08-07 14:12 | XMS_ITS | Encounter Summary ---
[place] [address] Care Team Providers Care Air Cargo Ground Crew Supervisor Name Role Phone Yisel Marroquin MD Primary Care Provider Unavail able Reason for Visit * Reason Onset Date Comments Other 01/05/2019 Encounter Details Date Type Department Care Team (Late st Contact Info) Description 01/05/2019 Telephone [place] [phone] Sidra Del Toro, BLASTING HELPER Other Social History Tobacco Use Types Packs/Day [...] on filedocumented in this encounter Care Teams Air Cargo Ground Crew Supervisor Relationship Specialty Start Date End Date Yisel Marroquin MD PCP - General 11/13/18 03/05/19 documented as of this encounter
--- OUTSIDE RECORDS SUMMARY | 2024-08-07 14:12 | XMS_ITS | Encounter Summary ---
Author Organization [facility] [place] [address] Care Team Providers Care Freezing Machine Operator Name Role Phone Yisel Marroquin MD Primary Care Provider Unavail able Encounter Details Date Type Department Care Team (Late st Contact Info) Description 01/30/2019 Telephone Primary Care at [facility] [address] [place] [address] Ananth Wilson MD [address] [facility] [place] [address] Social History Tobacco Use Types Packs/Day Years [...] - 01/30/2019 8:05 AM EDT Bethel from [facility] is calling to ask if you wanted the Tizanidine as scheduled? Patient was taking this medication every 6-8 hours as needed. He is asking if you want it to be scheduled cold they get 28 days supply? documented in this encounter Plan of Treatment Not on file documented as of this encounter Visit Diagnoses Not on filedocumented in this encounter Care Teams Freezing Machine Operator Relationship Specialty Start Date End Date Yisel Marroquin MD PCP - General 11/13/18 03/05/19 documented as of this encounter
--- OUTSIDE RECORDS SUMMARY | 2024-08-07 14:12 | XMS_ITS | Encounter Summary ---
[place] [address] Care Team Providers Care Switching Operator Name Role Phone Yisel Marroquin MD Primary Care Provider Unavail able Reason for Visit * Reason Comments Medication Refill Encounter Details Date Type Department Care Team (Late st Contact Info) Description 11/08/2019 Refill Primary Care at [facility] [address] [place] [phone] Yisel Marroquin MD Social History Tobacco Use [...] Telephone Encounter - Meena Galloway [facility] - 11/08/2019 2:04 PM EDT Incruse Ellipta [...] on filedocumented in this encounter Care Teams Switching Operator Relationship Specialty Start Date End Date Yisel Marroquin MD PCP - General General Internal Medicine 03/06/19 0 documented as of this encounter
--- OUTSIDE RECORDS SUMMARY | 2024-08-07 14:12 | XMS_ITS | Encounter Summary ---
Author Organization Formerly [facility] [place] [address] Care Team Providers Care Welder Production Line Combination Name Role Phone Yisel Marroquin MD Primary Care Provider Unavail able Reason for Visit * Reason Comments Follow-up Encounter Details Date Type Department Care Team (Latest Contact Info) Description 09/24/2019 1:30 PM EST Office Visit Primary Care [place] [address] Yisel Marroquin MD Need for [...] your doctor if you can take an fxkf-sph-mgwjnnf pain medicine, such as acetaminophen (Tylenol), ibuprofen [...] Where can you learn more? Visit our [employer] information library at [email or web address]o You can also view health information on [employer], your personal patient account. Log in or sign uptoday. Enter Y571 in the search box to learn more about Sacroiliac Joint Pain: Care Instructions. Current as of: January 17, 2019 Content Version: 12.3 ?? [id number] emere. Care instructions adapted under license by [facility]. If you have questions about a medical condition or this instruction, always ask your healthcare professional. emere disclaims any warranty or liability for your [...] for you. How to do the exercises Tcue-bu-bguva stretch 1. Do not do the tulj-fr-zcxeh exercise if it causes or increases back [...] Where can you learn more? Visit our [employer] information library at [email or web address]o You can also view health information on [employer], your personal patient account. Log in or sign uptoday. Enter T635 in the search box to learn more about Sacroiliac Pain: Exercises. Current as of: January 17, 2019 Content Version: 12.3 ?? [id number] emere. Care instructions adapted under license by [facility]. If you have questions about a medical condition or this instruction, always ask your healthcare professional. emere disclaims any warranty or liability for your [...] your doctor if you can take an nems-qdl-mapcjnq pain medicine, such as acetaminophen (Tylenol), ibuprofen [...] Where can you learn more? Visit our [employer] information library at [email or web address] [email or web address] You can also view health information on [employer], your personal patient account. Log in or sign uptoday. Enter Y571 in the search box to learn more about Sacroiliac Joint Pain: Care Instructions. Current as of: January 17, 2019 Content Version: 12.3 ?? [id number] emere. Care instructions adapted under license by [facility]. If you have questions about a medical condition or this instruction, always ask your healthcare professional. emere disclaims any warranty or liability for your [...] to do In Shape program with her [employer] program. Would like shingles and flu vaccine Patient states they do not need any refills at this time. Flu Vaccine 3415-4269 Age Considerations Vaccine Name Adult [x] 6 [...] had any of the following: History of Guillian-Nettleton Syndrome, allergy to eggs, or allergicreaction to [...] (Reflex Direct LDL) (12/27/2019 7:27 AM EDT) [facility] Cholesterol, Total 114 mg/dL [facility] Comment: Lower Risk: <200 mg/dL Average Risk: 200-239 mg/dL Higher Risk: >vx=545 mg/dL Triglyceride 102 mg/dL [facility] Comment: Average Risk/Lower Risk: <150 mg/dL Borderline High Risk: 150-199 mg/dL High Risk: 200-499 mg/dL Very High Risk: >wi=504 mg/dL HDL Cholesterol 38 mg/dL [facility] Comment: Males: ?? Higher Risk: <40 mg/dL Females: ?? HIgher Risk: <50 mg/dL LDL Cholesterol 56 mg/dL [facility] Comment: Lowest Risk: <100 mg/dL Lower Risk: 100-129 mg/dL Borderline High Risk: 130-159 mg/dL High Risk: 160-189 mg/dL Very High Risk: >jt=553 mg/dL Cholesterol/HDL Ratio 3.0 ratio [facility] Lipid Interpretation See Note [facility] Comment: Lipid management should be guided by a patient? s ASCVD risk, goals and preferences. ACC/AHA Guidelines recommend high intensity statin if clinical ASCVD or LDL greater than or equal to 190 mg/dL. http://Smartisan.com/UYA-LTF-Jhdoxwqva Adults aged 40-75 with LDL 70-189 mg/dL should have their 10 year ASCVD risk estimated with the ACC/AHA ASCVD risk senior construction estimator http://tools.acc.org/WEBDL-Yewq-Epgzsjbki/ Statin should be discussed if risk greater [...] MD CHEMISTRY ORDERABLES [facility] [address] [place] [address] * Magnesium (12/27/2019 7:27 AM EDT) Magnesium 0.80 0.69 - 1.07 mmol/L [facility] Blood specimen (specimen) 12/27/2019 7:27 AM EDT 12/27/2019 8:44 AM EDT Narrative Resulting Agency Comment Spec In Lab / APD Yisel Marroquin MD CHEMISTRY ORDERABLES [facility] [address] [place] [address] documented in this encounter Visit Diagnoses Diagnosis [...] type documented in this encounter Care Teams Welder Production Line Combination Relationship Specialty Start Date End Date Yisel Marroquin MD PCP - General General Internal Medicine 03/06/19 0 documented as of this encounter
--- OUTSIDE RECORDS SUMMARY | 2024-08-07 14:12 | XMS_ITS | Encounter Summary ---
Author Organization [facility] [place] [address] Care Team Providers Care Wood Preparation Supervisor Name Role Phone Hoang Castellanos APRN Primary Care Provider Reason for Visit * Reason Onset Date Comments Medication Refill Medication Refill 12/28/2019 Encounter Details Date Type Department Care Team (Late st Contact Info) Description 12/24/2019 Refill Primary Care at [facility] [address] [facility] [place] [phone] Yisel Marroquin MD CAD (coronary artery disease) [...] Coronary atherosclerosis of unspecified type of vessel, iroquois or graft documented in this encounter Additional Health Concerns Infection Onset Date Last Indicated Resolved Time Rule Out COVID-19 04/03/2020 04/03/2020 04/03/2020 11:21 AM EDT Rule Out COVID-19 07/03/2020 07/03/2020 07/03/2020 4:30 PM EST documented as of this encounter Care Teams Wood Preparation Supervisor Relationship Specialty Start Date End Date Hoang Castellanos, USED CAR MAKE READY MECHANIC [address] [place] [address] PCP - General Family Medicine 03/12/20 documented as of this encounter
--- OUTSIDE RECORDS SUMMARY | 2024-08-07 14:12 | XMS_ITS | Encounter Summary ---
Author Organization [facility] [place] [address] Care Team Providers Care Top Spotter Name Role Phone Yisel Marroquin MD Primary Care Provider Unavail able Reason for Visit * Reason Comments Medication Refill Encounter Details Date Type Department Care Team (Late st Contact Info) Description 11/20/2019 Refill Primary Care at [facility] 10 [place] [address] Ananth Wilson MD 10 [facility] [place] [address] Social History Tobacco Use Types Packs/Day Years [...] on filedocumented in this encounter Care Teams Top Spotter Relationship Specialty Start Date End Date Yisel Marroquin MD PCP - General General Internal Medicine 03/06/19 0 documented as of this encounter
--- OUTSIDE RECORDS SUMMARY | 2024-08-07 14:12 | XMS_ITS | Encounter Summary ---
Author Organization [facility] [place] [address] Care Team Providers Care Java Sql Developer Name Role Phone Yisel Marroquin MD Primary Care Provider Unavail able Reason for Visit * Reason Onset Date Comments Medication Refill 01/29/2019 Encounter Details Date Type Department Care Team (Late st Contact Info) Description 01/29/2019 Ref[address] Primary Care at [facility] 10 [place] [phone] Yisel Marroquin MD Social History Tobacco Use [...] on filedocumented in this encounter Care Teams Java Sql Developer Relationship Specialty Start Date End Date Yisel Marroquin MD PCP - General 11/13/18 03/05/19 documented as of this encounter
--- OUTSIDE RECORDS SUMMARY | 2024-08-07 14:12 | XMS_ITS | Encounter Summary ---
[place] [address] Care Team Providers Care Process Control Supervisor Name Role Phone Yisel Marroquin MD Primary Care Provider Unavail able Encounter Details Date Type Department Care Team (Late st Contact Info) Description 01/05/2019 Notes Only [place] [address] Sidra Del Toro, SALVAGE REPAIRER Social History Tobacco Use Types Packs/Day Years [...] 01/05/2019 12:36 PM EDT Bariatric Surgery Program [facility] cardiology clinic called to clarify whether Jeannie [...] on filedocumented in this encounter Care Teams Process Control Supervisor Relationship Specialty Start Date End Date Yisel Marroquin MD PCP - General 11/13/18 03/05/19 documented as of this encounter
--- OUTSIDE RECORDS SUMMARY | 2024-08-07 14:12 | XMS_ITS | Encounter Summary ---
[place] [address] Care Team Providers Care Cage Loader Name Role Phone Hoang Castellanos APRN Primary Care Provider Encounter Details Date Type Department Care Team (Late st Contact Info) Description 01/08/2020 1:00 PM EDT TH Visit (TeleHealth) [place] [address] Priya Charles, ADVERTISING DISPATCH CLERKS SUPERVISOR [facility] [place] [address] Tamar Guerra, RD [facility] [place] [place] [address] Essential hypertension; Smokes cigarettes; Gastroesophageal reflux disease, [...] Guerra, RD - 01/08/2020 1:00 PM EDT [facility] home support worker Lela [phone] and [place] [phone] Dietitians: [phone] Surgeons/ nurse practitioners: [phone] Nurse line: [phone] Dear Jeannie It was nice talking to [...] follow up in 1 year. Please call [phone] if you do not receive an appointment [...] Our post surgery support group meets at [facility]- currently on hold due to covid 19 1. on the first Tuesday of every month from 1:00 PM-2:00 PM Nutrition and Activity apps- Baritastic, My Fitness Pal, Lose It, My Plate Internet resources: www.Spotster wwwFusionStorm www.bariatriceating.GenOil www.The Kendal Group.GenOil/blog [facility] facebook page: https://www.facebook.com/[facility] Books & Magazines: - Recipes for Life After Weight Loss Surgery by Suly Cruz - Shrink Yourself by Dr Juan Carlos Carlos - Eating Well - www.Zipline Games - Cooking Light- www.cookingGreenerU.GenOil Anxiety: The Happiness Trap by Efren Richey The Mindfulness and acceptance workbook for anxiety By Jose A Acosta. Mindful eating: What are you Hungry For? By Ricardo Murray The Mindful Diet by Katerine Nelson and the [facility] group. Emotional eating: End Emotional Eating by Tamar Russo Calming the Emotional Storm Jessica Hayes documented in this encounter Progress Notes * Priya Charles APRN - 01/08/2020 1:00 [place] [address] Bariatric Surgery Program: Telephone Encounter. 1. Reason/purpose [...] Lumbago M54.5 ??? Atherosclerosis of [place] coronary artery of [place] heart without angina pectoris I25.10 ??? Hypertension [...] down 5#. ?? Using Premier Protein powder. [place] milk- feels like she's going to throw- up. Drinks it fast. ?? Works with therapist weekly and pillowcase turner daily Social History: Has a supportive pillowcase turner.? OBJECTIVE: Type of Surgery:??non-divided RNY gastric bypass [...] 01/08/20 224# 51% 38.4 19.5 years post-op Lee Body Weight (based on BMI of 25): [...] Perfect Iron which is made by the [employer]. Supplement Type Brand/Form Dosage/Amount Frequency Comments Multivitamin [...] APRN CHEMISTRY ORDERA BLES Performing Organization Address City/[facility]/ZIP Co de Phone Number [facility] [place] [address] * PTH (01/18/2020 12:56 PM EDT) Parathyroid Hormone 54 15 - 65 pg/mL [facility] Blood specimen (specimen) 01/18/2020 12:56 PM EDT 01/18/2020 4:52 PM EDT Narrative Resulting Agency Comment Spec In Lab / APD Priya Charles APRN CHEMISTRY ORDERA BLES Performing Organization Address City/[facility]/ZIP Co de Phone Number [facility] [place] [address] * (ABNORMAL) Iron and TIBC (01/18/2020 12:56 [...] APRN CHEMISTRY ORDERA BLES Performing Organization Address [facility] de Phone Number [facility] [address] [place] [phone] * (ABNORMAL) Ferritin (01/18/2020 12:56 PM EDT) Ferritin 16(L) 30 - 400 ng/mL [facility] Comment: Pediatric reference ranges not verified at [facility], interpret with caution. Reference ranges for females greater than 50 years of age approach values for men, i.e., 30-400 ng/mL. Blood specimen (specimen) 01/18/2020 12:56 PM EDT 01/18/2020 1:45 PM EDT Narrative Resulting Agency Comment Spec In Lab / APD Priya Charles APRN CHEMISTRY ORDERA BLES Performing Organization Address [facility] de Phone Number [facility] [address] [place] [phone] * (ABNORMAL) Prealbumin (01/18/2020 12:56 PM EDT) [...] APRN CHEMISTRY ORDERA BLES Performing Organization Address [facility] Co de Phone Number [facility] [place] [address] documented in this encounter Visit Diagnoses Diagnosis [...] nonabsorption documented in this encounter Care Teams Cage Loader Relationship Specialty Start Date End Date Hoang Castellanos, ADVERTISING DISPATCH CLERKS SUPERVISOR [address] [place] [address] PCP - General Family Medicine 12/07/19 03/11/20 documented as of this encounter
--- OUTSIDE RECORDS SUMMARY | 2024-08-07 14:12 | XMS_ITS | Encounter Summary ---
Author Organization [facility] [place] [address] Care Team Providers Care Radio Frequency Technician Name Role Phone Hoang Castellanos APRN Primary Care Provider Encounter Details Date Type Department Care Team (Latest Contact Info) Description 12/27/2019 7:25 AM EDT Laboratory Appointment Laboratory at [facility] [place] [phone] Hyperlipidemia, unspecified hyperlipidemia type; Dizzinesses; Vision changes [...] MD CHEMISTRY ORDERABLES [facility] [address] [place] [address] * Lipid Panel (Reflex Direct LDL) (12/27/2019 7:27 AM EDT) Cholesterol, Total 114 mg/dL [facility] Comment: Lower Risk: <200 mg/dL Average Risk: 200-239 mg/dL Higher Risk: >sj=965 mg/dL Triglyceride 102 mg/dL [facility] Comment: Average Risk/Lower Risk: <150 mg/dL Borderline High Risk: 150-199 mg/dL High Risk: 200-499 mg/dL Very High Risk: >fv=300 mg/dL HDL Cholesterol 38 mg/dL [facility] Comment: Males: ?? Higher Risk: <40 mg/dL Females: ?? HIgher Risk: <50 mg/dL LDL Cholesterol 56 mg/dL [facility] Comment: Lowest Risk: <100 mg/dL Lower Risk: 100-129 mg/dL Borderline High Risk: 130-159 mg/dL High Risk: 160-189 mg/dL Very High Risk: >tp=876 mg/dL Cholesterol/HDL Ratio 3.0 ratio [facility] Lipid Interpretation See Note [facility] Comment: Lipid management should be guided by a patient? s ASCVD risk, goals and preferences. ACC/AHA Guidelines recommend high intensity statin if clinical ASCVD or LDL greater than or equal to 190 mg/dL. http://tinyurl.com/KZX-AWL-Azmmuknuc Adults aged 40-75 with LDL 70-189 mg/dL should have their 10 year ASCVD risk estimated with the ACC/AHA ASCVD risk timber estimator http://tools.acc.org/FHTYZ-Spog-Wxxjukuah/ Statin should be discussed if risk greater [...] ORDERABLES [facility] [address] [place] [address] documented in this encounter Visit Diagnoses Diagnosis Hyperlipidemia, unspecified hyperlipidemia type Dizzinesses Vision changes Unspecified visual disturbance documented in this encounter Care Teams Radio Frequency Technician Relationship Specialty Start Date End Date Hoang Castellanos, JOINERS SUPERVISOR [address] [place] [address] PCP - General Family Medicine 12/07/19 03/11/20 documented as of this encounter
--- OUTSIDE RECORDS SUMMARY | 2024-08-07 14:12 | XMS_ITS | Encounter Summary ---
[place] [address] Care Team Providers Care Care Support Representative Name Role Phone Yisel Marroquin MD Primary Care Provider Unavail able Encounter Details Date Type Department Care Team (Late st Contact Info) Description 06/01/2019 Orders Only Primary Care at [facility] 10 [place] [address] Devi Mccormick RN B12 deficiency Social History [...] deficiencies documented in this encounter Care Teams Care Support Representative Relationship Specialty Start Date End Date Yisel Marroquin MD PCP - General General Internal Medicine 03/06/19 0 documented as of this encounter
--- OUTSIDE RECORDS SUMMARY | 2024-08-07 14:12 | XMS_ITS | Encounter Summary ---
Author Organization [facility] [place] [address] Care Team Providers Care Supervisor Grinding Name Role Phone Yisel Marroquin MD Primary Care Provider Unavail able Reason for Referral * Diagnostic Test (Routine) - Closed Specialty Diagnoses / Procedures Referred By Contdavide t Referred To Contact Radiology Diagnoses Long-term use of high-risk medication Other osteoporosis without current pathological fracture Procedures DXA Central-Spine, Hip, And/Or Whole Body (Generic) Yisel Marroquin MD 10 [place] [address] [facility] Rad Xray 10 [place] [address] Referral ID Status Reason Start Date Expiration Date V isits Requested Visits Authorized [id number] Closed Specialty Service Requested 02/07/2019 02/07/2020 1 1 Reason for Visit * Reason Comments Follow-up Encounter Details Date Type Department Care Team ([facility] Contact Info) Description 02/07/2019 11:30 AM EDT Office Visit Primary Care at [address] [address] Yisel Marroquin MD Smokes cigarettes; [...] alert, oriented, no distress, obese white female, dependency case manager at side HEENT: Dry mucus [...] BMD measurements and plots are available in EStix Games under the imaging tab. Paper copies will be sent to providers without E-DH access. If you have received this report without the data sheet and do not have access to E-WeatherBug, please contact Radiology Land Use Planner at [phone] Tuesday thru Tuesday 8am-4pm. Thank you for letting us participate in the care of this patient. For questions regarding this report, please contact the number below. ? Narrative 02/20/2019 10:58 AM EDT EXAMINATION: DXA CENTRAL-SPINE, HIP, AND/OR WHOLE BODY (GENERIC) CLINICAL HISTORY: Hx bariatric surgery amd halfway PPI use, rec by gen surg TECHNIQUE: Scans were acquired at the lumbar spine, left hip, ?? COMPARISON: 10/29/2015 FINDINGS: Lowest T-score at a diagnostic region of interest: T-score: -2.0, HCANCE: Left femoral neck, WHO diagnosis: Osteoporosis. The bone mineral density of the hip total has decreased by 5.5% compared with the previous DEXA Procedure Note Rinku Wilkins MD - 02/20/2019 EXAMINATION: DXA CENTRAL-SPINE, HIP, AND/OR WHOLE BODY (GENERIC) CLINICAL HISTORY: Hx bariatric surgery amd halfway PPI use, rec by gensurg TECHNIQUE: Scans [...] BMD measurements and plots are available in EGlusterunder the imaging tab. Paper copies will be sent to providers without NephroGenex access.If you have received this report without the data sheet and do not haveaccess to NephroGenex, please contact Radiology Land Use Planner at [phone] Tuesday thruFriday 8am-4pm. Thank you for letting [...] fracture documented in this encounter Care Teams Supervisor Grinding Relationship Specialty Start Date End Date Yisel Marroquin MD PCP - General 11/13/18 03/05/19 documented as of this encounter
--- OUTSIDE RECORDS SUMMARY | 2024-08-07 14:12 | XMS_ITS | Encounter Summary ---
[place] [address] Care Team Providers Care System Manager Name Role Phone Yisel Marroquin MD Primary Care Provider Unavail able Reason for Visit * Reason Comments Medication Refill Encounter Details Date Type Department Care Team (Late st Contact Info) Description 10/29/2019 Refill Primary Care at [facility] 10 [place] [phone] Yisel Marroquin MD Gastroesophageal reflux disease, esophagitis [...] specified documented in this encounter Care Teams System Manager Relationship Specialty Start Date End Date Yisel Marroquin MD PCP - General General Internal Medicine 03/06/19 0 documented as of this encounter
--- OUTSIDE RECORDS SUMMARY | 2024-08-07 14:12 | XMS_ITS | Encounter Summary ---
[place] [address] Care Team Providers Care Flatwork Folder Name Role Phone Yisel Marroquin MD Primary Care Provider Unavail able Encounter Details Date Type Department Care Team (Late st Contact Info) Description 04/18/2019 Telephone Primary Care at [facility] 10 [place] [address] Shannon Cruz, RN Social History Tobacco Use [...] check BP q weekly. She went to [facility] and took it twice. 184/89 and 195/104. PCP notified. documented in this encounter Plan of Treatment Not on file documented as of this encounter Visit Diagnoses Not on filedocumented in this encounter Care Teams Flatwork Folder Relationship Specialty Start Date End Date Yisel Marroquin MD PCP - General General Internal Medicine 03/06/19 0 documented as of this encounter
--- OUTSIDE RECORDS SUMMARY | 2024-08-07 14:12 | XMS_ITS | Encounter Summary ---
Author Organization [facility] [place] [address] Care Team Providers Care Resident Engineer Name Role Phone Yisel Marroquin MD Primary Care Provider Unavail able Reason for Visit * Reason Comments Medication Refill Encounter Details Date Type Department Care Team (Late st Contact Info) Description 06/29/2019 Refill Primary Care at [facility] 10 [place] [address] Ananth Wilson MD 10 [facility] [place] [address] Social History Tobacco Use Types Packs/Day Years [...] on filedocumented in this encounter Care Teams Resident Engineer Relationship Specialty Start Date End Date Yisel Marroquin MD PCP - General General Internal Medicine 03/06/19 0 documented as of this encounter
--- OUTSIDE RECORDS SUMMARY | 2024-08-07 14:12 | XMS_ITS | Encounter Summary ---
[place] [address] Care Team Providers Care Skein Bleacher Name Role Phone Yisel Marroquin MD Primary Care Provider Unavail able Encounter Details Date Type Department Care Team (Late st Contact Info) Description 01/08/2019 Telephone Primary Care at [facility] 10 [place] [address] Yisel Marroquin MD Social History Tobacco Use [...] PCP okayed this (see note from 01/05/19) [facility] called asking question about lisinopril dose. PCP notified. documented in this encounter Plan of Treatment Not on file documented as of this encounter Visit Diagnoses Not on filedocumented in this encounter Care Teams Skein Bleacher Relationship Specialty Start Date End Date Yisel Marroquin MD PCP - General 11/13/18 03/05/19 documented as of this encounter
--- OUTSIDE RECORDS SUMMARY | 2024-08-07 14:12 | XMS_ITS | Encounter Summary ---
Author Organization [facility] [place] [address] Care Team Providers Care Chiropractor Sole Practitioner Name Role Phone Yisel Marroquin MD Primary Care Provider Unavail able Reason for Visit * Reason Comments Follow-up Encounter Details Date Type Department Care Team (Late st Contact Info) Description 05/04/2019 2:00 PM EDT Office Visit Primary Care at [facility] [place] [phone] Yisel Marroquin MD Asthma with acute exacerbation, [...] disorder documented in this encounter Care Teams Chiropractor Sole Practitioner Relationship Specialty Start Date End Date Yisel Marroquin MD PCP - General General Internal Medicine [birth year]12/05/ 0 documented as of this encounter
--- OUTSIDE RECORDS SUMMARY | 2024-08-07 14:12 | XMS_ITS | Encounter Summary ---
[place] [address] Care Team Providers Care Roving Department End Finder Name Role Phone Yisel Marroquin MD Primary Care Provider Unavail able Encounter Details Date Type Department Care Team (Late st Contact Info) Description 09/24/2019 Telephone Primary Care at [facility] [address] [place] [address] Meli Jaimes, NEON INSTALLER [address] [place] [address] Social History Tobacco Use Types Packs/Day Years [...] PM EST Message received from Patel with [facility]. He is calling because the patient's prescriptionfor meloxicam interacts with her aspirin, lisinopril, sertraline and plavix. They need to confirm that you are aware of this and okay with the possible interactions. documented in this encounter Plan of Treatment Not on file documented as of this encounter Visit Diagnoses Not on filedocumented in this encounter Care Teams Roving Department End Finder Relationship Specialty Start Date End Date Yisel Marroquin MD PCP - General General Internal Medicine 03/06/19 0 documented as of this encounter
--- OUTSIDE RECORDS SUMMARY | 2024-08-07 14:12 | XMS_ITS | Encounter Summary ---
Author Organization [facility] [place] [address] Care Team Providers Care Glass Furnace Tender Name Role Phone Hoang Castellanos APRN Primary Care Provider Encounter Details Date Type Department Care Team (Late st Contact Info) Description 12/24/2019 Orders Only Primary Care at [facility] [address] [place] [phone] Payal Ace, RN RADIOLOGY Social History Tobacco Use Types Packs/Day Years [...] filedocumented in this encounter Care Teams Glass Furnace Tender Relationship Specialty Start Date End Date Hoang Castellanos APRN [address] [place] [address] PCP - General Family Medicine 12/07/19 03/11/20 documented as of this encounter
--- OUTSIDE RECORDS SUMMARY | 2024-08-07 14:12 | XMS_ITS | Encounter Summary ---
Author Organization [facility] [place] [address] Care Team Providers Care Tree Puller Name Role Phone Yisel Marroquin MD Primary Care Provider Unavail able Reason for Visit * Reason Onset Date Comments Medication Refill 08/20/2019 Encounter Details Date Type Department Care Team (Late st Contact Info) Description 08/20/2019 Refill Primary Care at [facility] [address] [place] [phone] Yisel Marroquin MD Social History Tobacco Use [...] on filedocumented in this encounter Care Teams Tree Puller Relationship Specialty Start Date End Date Yisel aMrroquin MD PCP - General General Internal Medicine 03/06/19 0 documented as of this encounter
--- OUTSIDE RECORDS SUMMARY | 2024-08-07 14:12 | XMS_ITS | Encounter Summary ---
[place] [address] Care Team Providers Care Maintenance Mechanic Elevators Name Role Phone Yisel Marroquin MD Primary Care Provider Unavail able Reason for Visit * Reason Comments Medication Refill Encounter Details Date Type Department Care Team (Late st Contact Info) Description 11/26/2019 Refill Primary Care at [facility] [address] [place] [phone] Yisel Marroquin MD Social History Tobacco Use [...] on filedocumented in this encounter Care Teams Maintenance Mechanic Elevators Relationship Specialty Start Date End Date Yisel Marroquin MD PCP - General General Internal Medicine 03/06/19 5/14/2 0 documented as of this encounter
--- OUTSIDE RECORDS SUMMARY | 2024-08-07 14:12 | XMS_ITS | Encounter Summary ---
Author Organization [facility] [place] [address] Care Team Providers Care Dining Room Maid Name Role Phone Yisel Marroquin MD Primary Care Provider Unavail able Reason for Visit * Reason Comments Follow-up Encounter Details Date Type Department Care Team (Late st Contact Info) Description 04/11/2019 11:30 AM EDT Office Visit Primary Care at [place] [phone] Yisel Marroquin MD Routine history and physical [...] more? Visit our health information library at [email or web address]. You can also view health information on [employer], your personal patient account. Log in or sign uptoday. Enter M541 in the search box to learn more about Colon Cancer Screening: Care Instructions. Current as of: July 12, 2018 Content Version: 12. ?? [id number] [employer]. Care instructions adapted under license by [facility]. If you have questions about a medical condition or this instruction, always ask your healthcare professional. [employer] disclaims any warranty or liability for your [...] alert, oriented, no distress, obese white female, pillowcase turner at side HEENT: Dry mucus membranes. CV: [...] adult Routine general medical examination at a [facility] care facility Age-related osteoporosis without current pathological fracture Senile osteoporosis documented in this encounter Care Teams Dining Room Maid Relationship Specialty Start Date End Date Yisel Marroquin MD PCP - General General Internal Medicine 03/06/19 0 documented as of this encounter
--- OUTSIDE RECORDS SUMMARY | 2024-08-07 14:12 | XMS_ITS | Encounter Summary ---
Author Organization [place] [address] Care Team Providers Care Director Skills Name Role Phone Hoang Castellanos APRN Primary Care Provider [phone] Encounter Details Date Type Department Care Team (Late st Contact Info) Description 12/28/2019 Notes Only Primary Care at [facility] 10 [place] [phone] Isadora Hidalgo LPN Social History Tobacco Use [...] Skills Relationship Specialty Start Date End Date Hoang Castellanos APRN [address] [facility] [place] [address] PCP - General Family Medicine 12/07/19 03/11/20 documented as of this encounter
--- OUTSIDE RECORDS SUMMARY | 2024-08-07 14:12 | XMS_ITS | Encounter Summary ---
Author Organization [facility] [place] [address] Care Team Providers Care Shafting Worker Name Role Phone Yisel Marroquin MD Primary Care Provider Unavail able Reason for Visit * Reason Onset Date Comments Medication Refill 05/18/2019 Encounter Details Date Type Department Care Team (Late st Contact Info) Description 05/18/2019 Refill Primary Care at [facility] [place] [phone] Yisel Marroquin MD Social History Tobacco Use [...] on filedocumented in this encounter Care Teams Shafting Worker Relationship Specialty Start Date End Date Yisel Marroquin MD PCP - General General Internal Medicine 03/06/19 5 0 documented as of this encounter
--- OUTSIDE RECORDS SUMMARY | 2024-08-07 14:12 | XMS_ITS | Encounter Summary ---
Author Organization [facility] [place] [address] Care Team Providers Care Surplus Property Disposal Agent Name Role Phone Yisel Marroquin MD Primary Care Provider Unavail able Encounter Details Date Type Department Care Team (Late st Contact Info) Description 07/24/2019 Telephone Primary Care at [facility] 10 [place] [address] Meli Jaimes, PHARMACIST CRITICAL CARE [address] [place] [address] Social History Tobacco Use Types Packs/Day Years [...] 07/24/2019 9:43 AM EST Fax received from [facility] stating that the Spiriva is not on her formulary. They are asking for the prescription to be changed to incruse ellipta. Ok to switch? documented in this encounter Plan of Treatment Not on file documented as of this encounter Visit Diagnoses Not on filedocumented in this encounter Care Teams Surplus Property Disposal Agent Relationship Specialty Start Date End Date Yisel Marroquin MD PCP - General General Internal Medicine 03/06/19 0 documented as of this encounter
--- OUTSIDE RECORDS SUMMARY | 2024-08-07 14:12 | XMS_ITS | Encounter Summary ---
Author Organization [place] [address] Care Team Providers Care Surgical Assist Name Role Phone Hoang Castellanos APRN Primary Care Provider Encounter Details Date Type Department Care Team (Latest Contact Info) Description 12/26/2019 10:00 AM EDT TH Visit (TeleHealth) Primary Care at [facility] [address] [facility] [place] [phone] Hoang Castellanos APRN [address] [facility] [place] [address] Benign essential hypertension; Type 2 diabetes mellitus [...] a 59 y.o. female presenting to the [facility] HPI Mental health condition Dr. Vera and oil field caser, Sherri Fuller-talked to them this morning Has [...] type documented in this encounter Care Teams Surgical Assist Relationship Specialty Start Date End Date Hoang Castellanos APRN [address] [place] [address] PCP - General Family Medicine 12/07/19 03/11/20 documented as of this encounter
--- OUTSIDE RECORDS SUMMARY | 2024-08-07 14:12 | XMS_ITS | Encounter Summary ---
[place] [address] Care Team Providers Care Pearl Glue Operator Name Role Phone Yisel Marroquin MD Primary Care Provider Unavail able Encounter Details Date Type Department Care Team (Late st Contact Info) Description 06/01/2019 Telephone Primary Care at [facility] 10 [place] [address] Devi Mccormick RN Social History Tobacco Use [...] on filedocumented in this encounter Care Teams Pearl Glue Operator Relationship Specialty Start Date End Date Yisel Marroquin MD PCP - General General Internal Medicine 03/06/19 0 documented as of this encounter
--- OUTSIDE RECORDS SUMMARY | 2024-08-07 14:12 | XMS_ITS | Encounter Summary ---
Author Organization [place] [address] Care Team Providers Care Rubber Calender Helper Name Role Phone Yisel Marroquin MD Primary Care Provider Unavail able Encounter Details Date Type Department Care Team (Late st Contact Info) Description 08/24/2019 Orders Only Primary Care at [facility] [address] [facility] [place] [address] Meli Jaimes, MEDIA EXECUTIVE [address] [place] [address] Social History Tobacco Use Types Packs/Day Years [...] on filedocumented in this encounter Care Teams Rubber Calender Helper Relationship Specialty Start Date End Date Yisel Marroquin MD PCP - General General Internal Medicine 03/06/19 0 documented as of this encounter
--- OUTSIDE RECORDS SUMMARY | 2024-08-07 14:12 | XMS_ITS | Encounter Summary ---
Author Organization [facility] [place] [address] Care Team Providers Care Neurodiagnostic Tech Name Role Phone Yisel Marroquin MD Primary Care Provider Unavail able Encounter Details Date Type Department Care Team (Late st Contact Info) Description 08/23/2019 Orders Only Primary Care at [facility] [address] [place] [address] Meli Jaimes, BILINGUAL TEACHER ASSISTANT [address] [place] [address] Social History Tobacco Use Types Packs/Day Years [...] on filedocumented in this encounter Care Teams Neurodiagnostic Tech Relationship Specialty Start Date End Date Yisel Marroquin MD PCP - General General Internal Medicine 03/06/19 0 documented as of this encounter
--- OUTSIDE RECORDS SUMMARY | 2024-08-07 14:12 | XMS_ITS | Encounter Summary ---
Author Organization [facility] [place] [address] Care Team Providers Care Traffic Operations Manager Name Role Phone Hoang Castellanos APRN Primary Care Provider Encounter Details Date Type Department Care Team (Latest Contact Info) Description 01/18/2020 12:45 PM EDT Laboratory Appointment Laboratory [place] [phone] Obesity, unspecified classification, unspecified obesity type, unspecified [...] EDT) Prealbumin 18(L) 20 - 40 mg/dL [facility] Comment: Prealbumin levels are generally lower in the pediatric population; adult concentrations are usually attained near puberty. Blood specimen (specimen) 01/18/2020 12:56 PM EDT 01/18/2020 4:52 PM EDT Narrative Resulting Agency Comment Spec In Lab / APD Priya Charles APRN CHEMISTRY ORDERA BLES [facility] [place] [address] * (ABNORMAL) Ferritin (01/18/2020 12:56 PM EDT) Ferritin 16(L) 30 - 400 ng/mL [facility] Comment: Pediatric reference ranges not verified at [facility], interpret with caution. Reference ranges for females greater than 50 years of age approach values for men, i.e., 30-400 ng/mL. Blood specimen (specimen) 01/18/2020 12:56 PM EDT 01/18/2020 1:45 PM EDT Narrative Resulting Agency Comment Spec In Lab / APD Priya Charles SAM CHEMISTRY ORDERA BLES Performing Organization Address [facility]/ZIP Co de Phone Number [facility] [address] [place] [address] * (ABNORMAL) Iron and TIBC (01/18/2020 12:56 PM EDT) Iron 44 30 - 150 mcg/dL [facility] TIBC 397 250 - 450 mcg/dL [facility] Iron Saturation 11(L) 20 - 50 % [facility] Blood specimen (specimen) 01/18/2020 12:56 PM EDT 01/18/2020 1:45 PM EDT Narrative Resulting Agency Comment Spec In Lab / APD Priya Charles COMPOSITE SCIENCE TEACHER CHEMISTRY ORDERA BLES Performing Organization Address [facility] Co de Phone Number [facility] [address] [place] [address] * PTH (01/18/2020 12:56 PM EDT) Parathyroid Hormone 54 15 - 65 pg/mL [facility] Blood specimen (specimen) 01/18/2020 12:56 PM EDT 01/18/2020 4:52 PM EDT Narrative Resulting Agency Comment Spec In Lab / APD Priya Vivi Pomerene SAM CHEMISTRY ORDERA BLES Performing Organization Address City/[facility]/ZIP Co de Phone Number [facility] [place] [address] * Vitamin D, 25-Hydroxy (01/18/2020 12:56 PM EDT) Vitamin D Total 25 OH 38 21 - 100 ng/mL [facility] Comment: Please note, effective November 28, 2019, additional result field for Vitamin D Interpretation, and updated flagging notification. 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
--- OUTSIDE RECORDS SUMMARY | 2024-08-07 14:13 | XMS_ITS | Encounter Summary ---
[place] [address] Care Team Providers Care Postal Delivery Officer Name Role Phone Yisel Marroquin MD Primary Care Provider Unavail able Encounter Details Date Type Department Care Team (Late st Contact Info) Description 01/04/2018 Orders Only Radiology and Cardiology Results [address] [place] [address] Apd Conversion, Results Provider, Social [...] filedocumented in this encounter Care Teams Postal Delivery Officer Relationship Specialty Start Date End Date Yisel Marroquin MD PCP - General 11/13/18 03/05/19 documented as of this encounter
--- OUTSIDE RECORDS SUMMARY | 2024-08-07 14:13 | XMS_ITS | Encounter Summary ---
[place] [address] Care Team Providers Care Shopper'S Aide Name Role Phone Yisel Marroquin MD Primary Care Provider Unavail able Encounter Details Date Type Department Care Team (Late st Contact Info) Description 01/04/2018 Orders Only Radiology and Cardiology Results [address] [place] [address] Apd Conversion, Results Provider, Social [...] Ratio (01/04/2018) Albumin / Creatinin Ratio, Urine 5.5(Treer al Lab) 0 - 29 [facility] DAY CONVERSION Creatinine, Urine 38.0(Exter nal Lab) [facility] CONVERSION Albumin, Urine 2.1(Treer al Lab) [facility] CONVERSION 01/04/2018 Results Provider Apd Conversion URINE ORDERABLES [facility] CONVERSION documented in this encounter Visit Diagnoses Not on filedocumented in this encounter Care Teams Shopper'S Aide Relationship Specialty Start Date End Date Yisel Marroquin MD PCP - General 11/13/18 03/05/19 documented as of this encounter
--- OUTSIDE RECORDS SUMMARY | 2024-08-07 14:13 | XMS_ITS | Encounter Summary ---
Author Organization [facility] [place] [address] Care Team Providers Care Road Cleaner Name Role Phone Yisel Marroquin MD Primary Care Provider Encounter Details Date Type Department Care Team (Late st Contact Info) Description 09/19/2018 12:41 PM EST Anesthesia [place] [address] Francisco Javier Lord MD [facility] [place] [address] Anesthesia Record Procedure Summary Procedure Name Responsible [...] 1157; median cubital vein (antecubital fossa), right; arwj-uul-lamgob catheter system; 20 gauge; FABIANA Cartwright ; [...] Lord MD - 09/19/2018 2:42 PM EST [facility] Department of Anesthesiology Post-procedure Note Patient: Jeanine Rico Procedure Summary Date: 09/19/18 Room / Location: [facility] / [facility] Anesthesia Start: 1241 Anesthesia Stop: 1304 Procedure: UPPER GASTROINTESTINAL ENDOSCOPY,WITH BIOPSY SINGLE OR MULTIPLE (WRVU 2.49) (N/A ) Diagnosis: (dysphagia - CONSULT) Surgeon: Tyron Mercado MD Responsible Provider: Francisco Javier Lord MD Anesthesia Type: MAC ASA Status: 3 All Anesthesia Providers: Anesthesiologist: Francisco Javier Lord MD SCRIPT SUPERVISOR: Jose F Mei CRNA Vitals Value Taken Time BP 129/117 09/19/2018 1:20 PM Temp Pulse Resp SpO2 95 % 09/19/2018 1:26 PM Pain Level Vitals shown include unvalidated device data. Patient Location: PACU/[facility] Level of Consciousness: Awake and [...] ??? Osteoporosis DEXA done at [facility] on 10/29/15: osteoporosis at the left hip T-3, and osteopenia of the spine T-1.9 ??? Atherosclerosis of pala coronary artery of pala heart without angina pectoris ??? Hypertension ??? [...] BIOPSY performed by Ken Sanders MD at [facility] ??? UPPER GI ENDOSCOPY, EXAM 12/04/2010 UPPER GI ENDOSCOPY performed by DEE WRIGHT at [facility] Social History Tobacco Use ??? [...] Chronic pain ??? Lumbago ??? Atherosclerosis of pala coronary artery of pala heart without angina pectoris ??? Hypertension ??? [...] mL/hr documented in this encounter Care Teams Road Cleaner Relationship Specialty Start Date End [place] [address] PCP - General General Internal Medicine 06/28/1810/24 documented as of this encounter
--- OUTSIDE RECORDS SUMMARY | 2024-08-07 14:13 | XMS_ITS | Encounter Summary ---
[place] [address] Care Team Providers Care Supervisor Pumping Name Role Phone Yisel Marroquin MD Primary Care Provider Unavail able Encounter Details Date Type Department Care Team (Late st Contact Info) Description 01/04/2019 Telephone Primary Care at [facility] [address] [place] [address] Shannon Cruz, RN Social History Tobacco Use [...] filedocumented in this encounter Care Teams Supervisor Pumping Relationship Specialty Start Date End Date Yisel Marroquin MD PCP - General 11/13/18 03/05/19 documented as of this encounter
--- OUTSIDE RECORDS SUMMARY | 2024-08-07 14:13 | XMS_ITS | Encounter Summary ---
Author Organization [facility] [place] [address] Care Team Providers Care Nurse Anesthesia Program Director Name Role Phone Yisel Marroquin MD Primary Care Provider Unavail able Encounter Details Date Type Department Care Team (Late st Contact Info) Description 02/07/2017 Orders Only Radiology and Cardiology Results [address] [place] [address] Apd Conversion, Results Provider, Social [...] filedocumented in this encounter Care Teams Nurse Anesthesia Program Director Relationship Specialty Start Date End Date Yisel Marroquin MD PCP - General 11/13/18 03/05/19 documented as of this encounter
--- OUTSIDE RECORDS SUMMARY | 2024-08-07 14:13 | XMS_ITS | Encounter Summary ---
Author Organization [facility] [place] [address] Care Team Providers Care Fork Operator Name Role Phone Yisel Marroquin MD Primary Care Provider Unavail able Encounter Details Date Type Department Care Team (Late st Contact Info) Description 05/19/2017 Abstract [facility] Conversion Results [address] [place] [address] Apd Conversion, Flowsheet Provider, Social History Tobacco [...] on filedocumented in this encounter Care Teams Fork Operator Relationship Specialty Start Date End Date Yisel Marroquin MD PCP - General 11/13/18 03/05/19 documented as of this encounter
--- OUTSIDE RECORDS SUMMARY | 2024-08-07 14:13 | XMS_ITS | Encounter Summary ---
[place] [address] Care Team Providers Care Ota Name Role Phone Yisel Marroquin MD Primary Care Provider Unavail able Reason for Visit * Reason Comments Rash Encounter Details Date Type Department Care Team (Late st Contact Info) Description 01/05/2019 10:45 AM EDT Office Visit Primary Care at [facility] [place] [phone] Yisel Marroquin MD Dermatitis Social History Tobacco [...] MD Internal Medicine [facility] documented in this encounter Plan of Treatment Not on file documented as of this encounter Visit Diagnoses Diagnosis Dermatitis Contact dermatitis and other eczema, due to unspecified cause documented in this encounter Care Teams Ota Relationship Specialty Start Date End Date Yisel Marroquin MD PCP - General 11/13/18 03/05/19 documented as of this encounter
--- OUTSIDE RECORDS SUMMARY | 2024-08-07 14:13 | XMS_ITS | Encounter Summary ---
Author Organization [facility] Address [facility] [place] [address] Care Team Providers Care Cryptoanalysis Teacher Name Role Phone Yisel Marroquin MD Primary Care Provider Unavail able Encounter Details Date Type Department Care Team (Late st Contact Info) Description 02/14/2018 Abstract [facility] Conversion Results [address] [place] [address] Apd Conversion, Flowsheet Provider, Social History Tobacco [...]
--- OUTSIDE RECORDS SUMMARY | 2024-08-07 14:13 | XMS_ITS | Encounter Summary ---
Author Organization [facility] Address [facility] [place] [address] Care Team Providers Care Barrel Finisher Name Role Phone Yisel Marroquin MD Primary Care Provider Unavail able Encounter Details Date Type Department Care Team (Late st Contact Info) Description 11/22/2017 Abstract [place] Rice Conversion Results [address] [place] [address] Apd Conversion, Flowsheet Provider, Social History Tobacco [...] filedocumented in this encounter Care Teams Barrel Finisher Relationship Specialty Start Date End Date Yisel Marroquin MD PCP - General 11/13/18 03/05/19 documented as of this encounter
--- OUTSIDE RECORDS SUMMARY | 2024-08-07 14:13 | XMS_ITS | Encounter Summary ---
Author Organization [facility] Address [facility] [place] [address] Care Team Providers Care Business Solutions Director Name Role Phone Yisel Marroquin MD Primary Care Provider Unavail able Encounter Details Date Type Department Care Team (Late st Contact Info) Description 06/27/2018 Abstract [place] Conversion Results [address] [place] [address] Apd Conversion, Flowsheet Provider, Social History Tobacco [...] filedocumented in this encounter Care Teams Business Solutions Director Relationship Specialty Start Date End Date Yisel Marroquin MD PCP - General 11/13/18 03/05/19 documented as of this encounter
--- OUTSIDE RECORDS SUMMARY | 2024-08-07 14:13 | XMS_ITS | Encounter Summary ---
Author Organization [facility] Address [facility] [place] [address] Care Team Providers Care Farrowing Worker Name Role Phone Yisel Ventura MD Primary Care Provider [phone] Encounter Details Date Type Department Care Team (Latest Contact Info) Description 09/19/2018 10:59 AM EST - 09/19/2018 2:07 PM EST Hospital [place] [address] Tyron Mercado MD [facility] [place] [address] Discharge Disposition: Home Social History Tobacco Use [...] - 09/19/2018 1:11 PM EST Please call [phone] before 8pm Mon-Fri with problems, questions or concerns. If you call after 8pm or on weekends, call the Hospital at [phone] and ask to speak to the University Professor range conservationist and the brim pouncer machine operator will contact that person for you. * Attachments The following attachments cannot be sent through Care Everywhere. * EGD (Upper Endoscopy): Post-op (Bahamian) documented in this encounter Medications at Time [...] G89.29 ??? Lumbago M54.5 ??? Atherosclerosis of squaxin coronary artery of squaxin heart without angina pectoris I25.10 ??? Hypertension [...] Report (09/19/2018 12:59 PM EST) Final Diagnosis [id number] ? Location: 4T; EA07; A The signing [...] Vigil MD Verified: ??09/22/2018 ?Pathologist Performed at: ??-[facility] [place], [place], [place] CLINICAL INFORMATION Specimen Submitted: A - [...] cassette labeled C1. ??ejr 09/22/2018 3:24 PM [facility] GI Biopsy 09/19/2018 12:5 9 PM EST 09/19/2018 12:59 PM EST GI Biopsy 09/19/2018 12:5 9 PM EST 09/19/2018 12:59 PM EST GI Biopsy 09/19/2018 12:5 9 PM EST 09/19/2018 12:59 PM EST Tyron Mercado MD PATHOLOGY/CYTOLOGY ORDERABLES Performing Organization Address [facility] [place] [facility]/ZIP Co de Phone Number [facility] [place] [address] * Specimen to Pathology (09/19/2018 12:59 PM EST) AP Specimen 09/19/2018 12:5 9 PM EST 09/19/2018 12:59 PM EST Narrative [facility] - 09/19/2018 12:59 PM EST Specimen requisition ordered. ??Separate Pathology report to follow Tyron Mercado MD PATHOLOGY/CYTOLOGY ORDERABLES Performing Organization Address [facility] [place] [facility] Co de Phone Number [facility] [place] [address] * Specimen to Pathology (09/19/2018 12:59 PM EST) AP Specimen 09/19/2018 12:5 9 PM EST 09/19/2018 12:59 PM EST Narrative [facility] - 09/19/2018 12:59 PM EST Specimen requisition ordered. ??Separate Pathology report to follow Tyron Mercado MD PATHOLOGY/CYTOLOGY ORDERABLES Performing Organization Address [facility] [place] [facility] Co de Phone Number [facility] [place] [address] * Specimen to Pathology (09/19/2018 12:59 PM EST) AP Specimen 09/19/2018 12:5 9 PM EST 09/19/2018 12:59 PM EST Narrative [facility] - 09/19/2018 12:59 PM EST Specimen requisition ordered. ??Separate Pathology report to follow Tyron Mercado MD PATHOLOGY/CYTOLOGY ORDERABLES Performing Organization Address [facility]/ZIP Co de Phone Number [facility] [place] [address] * UPPER GI ENDOSCOPY (09/19/2018 12:17 PM EST) Pathologist [facility] UPPER GI ENDOSCOPY [facility] Endoscopy Procedure Date: 09/19/2018 12:17 PM ? Patient Name: Jeannie Rico ? Date of : 1960 ? Age: 58 ? Order #: [id number] ? Instrument Name: [id number] ? Procedure: ? Upper GI endoscopy Indications: ? Dysphagia Providers: ? Tyron Mercado MD, Andrés Teixeira, ? Jeannie Alcazar RN, Anaid Ardon, ? Curriculum Development Manager Referring MD: ?Yisel Ventura MD Medicines: [...] EST Yisel Ventura MD [facility] documented in this encounter Visit Diagnoses [...] MD) documented in this encounter Care Teams Farrowing Worker Relationship Specialty Start Date End Date Yisel [place] [address] PCP - General General Internal Medicine 06/28/1810/24 documented as of this encounter
--- OUTSIDE RECORDS SUMMARY | 2024-08-07 14:13 | XMS_ITS | Encounter Summary ---
[place] [address] Care Team Providers Care Alcohol Rubber Name Role Phone Aman Lawernce APRN Primary Care Provider [phone] Encounter Details Date Type Department Care Team (Late st Contact Info) Description 10/21/2017 Telephone [place] [address] Irasema Calvin Social History Tobacco Use Types [...] Sidra Del Toro. She said that her business case analyst will have to bring her, so she and her business case analyst are going to call back to schedule sometime next week. I will push her recall incase we don't hear from her. documented in this encounter Plan of Treatment Not on file documented as of this encounter Visit Diagnoses Not on filedocumented in this encounter Care Teams Alcohol Rubber Relationship Specialty Start Date End Date Aman Lawrence APR[place] [address] [place] [address] PCP - General 06/16/10 06/27/18 documented as of this encounter
--- OUTSIDE RECORDS SUMMARY | 2024-08-07 14:13 | XMS_ITS | Encounter Summary ---
Author Organization [facility] [address] Care Team Providers Care Trial Manager Name Role Phone Aman Lawrence APRN Primary Care Provider [phone] Reason for Visit * Reason Onset Date Comments Medication Refill 03/24/2018 Encounter Details Date Type Department Care Team (Late st Contact Info) Description 03/24/2018 Refill Cardiology at [address] [address] Freddy Mejias MD [facility] [place] [address] Medication Refill Social History Tobacco Use Types [...] on filedocumented in this encounter Care Teams Trial Manager Relationship Specialty Start Date End Date Aman Lawrence APRN [place] [address] PCP - General 06/16/10 06/27/18 documented as of this encounter
--- OUTSIDE RECORDS SUMMARY | 2024-08-07 14:13 | XMS_ITS | Encounter Summary ---
[place] [address] Care Team Providers Care Cafe Worker Name Role Phone Aman Lawrence APRN Primary Care Provider [phone] Encounter Details Date Type Department Care Team (Late st Contact Info) Description 01/19/2017 Telephone [place] [address] Kenya Villanueva, RN Social History Tobacco Use [...] EDT I received a call from the [place] pharmacy about Jeannie's calcium dose changes. I let them know that I have no documentation about any changes in Jeannie's calcium. Medication Calcium Citrate-Vitamin D3 315-250 mg-unit Tablet [[id number]] Calcium Citrate-Vitamin D3 315-250 mg-unit Tablet [[id number]] Order Details Dose: 2 tablet Route: Oral Frequency: 2 TIMES DAILY Dispense Quantity: 360 tablet Refills: 3 Fills Remaining: -- ?? Sig: Take 2 tablets by mouth 2 times daily. (2) tabs 2 times daily. ?? Written Date: 11/19/16 Expiration Date: -- Start Date: 11/19/16 End Date: 11/19/17 after 730 doses ?? Ordering Provider: Sidra Del Toro APRN ARSH #: [id number] Authorizing Provider: Sidra Del Toro APRN ARSH #: [id number] Pharmacy: [address] ARSH #: -- Pharmacy Comments: -- ?? Quantity Remaining: -- Quantity Filled: -- documented in this encounter Plan of Treatment Not on file documented as of this encounter Visit Diagnoses Not on filedocumented in this encounter Care Teams Cafe Worker Relationship Specialty Start Date End Date Aman Lawrence [place] [address] PCP - General 06/16/10 06/27/18 documented as of this encounter
--- OUTSIDE RECORDS SUMMARY | 2024-08-07 14:13 | XMS_ITS | Encounter Summary ---
Author Organization [facility] [place] [address] Care Team Providers Care Librarian Special Collections Name Role Phone Aman Lawrence APRN Primary Care Provider [phone] Reason for Visit * Reason Onset Date Comments Medication Refill 04/25/2017 Encounter Details Date Type Department Care Team (Late st Contact Info) Description 04/25/2017 Refill Cardiology at [address] [address] Freddy Mejias MD [facility] [place] [address] Medication Refill Social History Tobacco Use Types [...] on filedocumented in this encounter Care Teams Librarian Special Collections Relationship Specialty Start Date End Date Aman Lawrence [place] [address] PCP - General 06/16/10 06/27/18 documented as of this encounter
--- OUTSIDE RECORDS SUMMARY | 2024-08-07 14:13 | XMS_ITS | Encounter Summary ---
Author Organization [facility] Address [facility] [place] [address] Care Team Providers Care Renal Medicine Physician Name Role Phone Yisel Marroquin MD Primary Care Provider Unavail able Encounter Details Date Type Department Care Team (Late st Contact Info) Description 01/13/2017 Abstract [place] Rice Conversion Results [address] [place] [address] Apd Conversion, Flowsheet Provider, Social History Tobacco [...] on filedocumented in this encounter Care Teams Renal Medicine Physician Relationship Specialty Start Date End Date Yisel Marroquin MD PCP - General 11/13/18 03/05/19 documented as of this encounter
--- OUTSIDE RECORDS SUMMARY | 2024-08-07 14:13 | XMS_ITS | Encounter Summary ---
Author Organization [facility] [place] [address] Care Team Providers Care Green Building Materials Distributor Name Role Phone Yisel Marroquin MD Primary Care Provider Unavail able Reason for Visit * Reason Onset Date Comments Medication Refill Medication Refill 12/05/2018 Encounter Details Date Type Department Care Team (Late st Contact Info) Description 12/04/2018 Refill Primary Care at [facility] [address] [facility] [place] [address] Yisel Marroquin MD Social History Tobacco Use [...] on filedocumented in this encounter Care Teams Green Building Materials Distributor Relationship Specialty Start Date End Date Yisel Marroquin MD PCP - General 11/13/18 03/05/19 documented as of this encounter
--- OUTSIDE RECORDS SUMMARY | 2024-08-07 14:13 | XMS_ITS | Encounter Summary ---
Author Organization [place] [address] Care Team Providers Care Microbiology Manager Name Role Phone Yisel Marroquin MD Primary Care Provider [phone] Reason for Referral * Consultation (Urgent) - Closed Specialty Diagnoses / Procedures Referred By Contac t Referred To Contact Gastroenterology Carli Tinsley MD [facility] [place] [address] [facility] Endoscopy [address] [place] [address] Referral ID Status Reason Start Date Expiration Date V isits Requested Visits Authorized [id number] Closed Consult, Test & Treat 09/11/2018 09/11/2019 1 1 Reason for Visit * Reason Comments Hoarseness Encounter Details Date Type Department Care Team (Late st Contact Info) Description 09/11/2018 3:33 PM EST - 09/11/2018 6:25 PM EST [place] [address] Ken Guerrero MD [address] [place] [address] Dysphagia, unspecified type Discharge Disposition: Home Social [...] Care Everywhere. * Dysphagia Diet: General Info (Mongolian) documented in this encounter Medications at Time [...] Discussed her case with the GI fellow electronics recycler,who advised urgent referral for an outpatient clinic [...] any errors. This note was dictated with [employer] software. Carli Tinsley MD Resident 09/11/181818 Associated [...] EST) Phosphorus 3.4 2.5 - 4.5 mg/dL [facility] Blood specimen (specimen) Venous Draw / Unknown 09/11/2018 4:45 PM EST 09/11/2018 5:06 PM EST Narrative Resulting Agency Comment Spec In Lab Carli Tinsley MD CHEMISTRY ORDERABLES [facility] [place] [address] * Magnesium (09/11/2018 4:45 PM EST) Magnesium 0.80 0.69 - 1.07 mmol/L [facility] Blood specimen (specimen) Venous Draw / Unknown 09/11/2018 4:45 PM EST 09/11/2018 5:06 PM EST Narrative Resulting Agency Comment Spec In Lab Carli Tinsley MD CHEMISTRY ORDERABLES Performing Organization Address City/[facility]/ZIP Co de Phone Number [facility] [place] [address] * Gold Tube HOLD (09/11/2018 4:45 PM EST) Gold Hold Sample in lab. [facility] Blood specimen (specimen) Venous Draw / Unknown 09/11/2018 4:45 PM EST 09/11/2018 5:07 PM EST Carli Tinsley MD CHEMISTRY ORDERABLES Performing Organization Address City/[facility]/ZIP Co de Phone Number [facility] [place] [address] * Blue Tube HOLD (09/11/2018 4:45 PM EST) Blue Hold Sample in lab. [facility] Blood specimen (specimen) Venous Draw / Unknown 09/11/2018 4:45 PM EST 09/11/2018 5:07 PM EST Carli Tinsley MD HEMATOLOGY ORDERABLE S [facility] [place] [address] * Differential, Automated (09/11/2018 4:45 PM EST) Pathologist [facility] Neutrophil % 70.5 % [facility] Neutrophil Absolute 5.40 1.70 - 6.10 x10(3)/[facility] Lymph % 21.7 % [facility] Lymphocytes Abs 1.7 0.9 - 3.2 x10(3)/[facility] Monocyte % 6.7 % [facility] Monocyte Abs 0.5 0.3 - 0.9 x10(3)/[facility] Eos % 0.3 % [facility] Eosinophils Abs 0.0 0.0 - 0.4 x10(3)/[facility] Basophil % 0.7 % [facility] Baso Absolute 0.0 0.0 - 0.1 x10(3)/[facility] Immature Gran % 0.10 % [facility] Comment: Immature granulocytes(IG's)percentage and absolute count will include metamyelocytes, myelocytes, and promyelocytes. Blood smears from CBCs yielding IG's will be scanned manually for concordance. If this scan disagrees with the automated IG or if promyelocytes are noted, a manual differential will be performed. Immature Gran Absolute 0.01 0.00 - 0.04 x10(3)/[facility] Blood specimen (specimen) 09/11/2018 4:45 PM EST 09/11/2018 5:06 PM EST Narrative Resulting Agency Comment Spec In Lab Carli Tinsley MD HEMATOLOGY ORDERABLE S [facility] [place] [address] * (ABNORMAL) Hemogram (09/11/2018 4:45 PM EST) Pathologist [facility] White Blood Cell 7.6 4.0 - 9.5 x10(3)/[facility] Red Blood Cell 4.44 4.00 - 5.21 x10(6)/mc L [facility] Hemoglobin 14.0 11.7 - 15.5 gm/dL [facility] Hematocrit 42.7 35.7 - 45.8 % [facility] Mean Cell Volume 96.2(H) 82.6 - 94.4 fL [facility] Mean Cell Hemoglobin 31.5 27.1 - 32.0 pg [facility] Mean Cell Hemoglobin Concentration 32.8 31.7 - 35.0 gm/dL [facility] Platelet 161 145 - 357 x10(3)/mc L [facility] RDW Standard Deviation 48.2(H) 37.0 - 46.0 fL [facility] RDW coefficient of variation 13.5 11.5 - 14.1 % [facility] Mean Platelet Volume 10.2 7.6 - 12.9 fL [facility] NRBC% auto 0.0 % [facility] NRBC Absolute 0.000 0.000 - 0.000 x10(3)/mc L [facility] Blood specimen (specimen) 09/11/2018 4:45 PM EST 09/11/2018 5:06 PM EST Narrative Resulting Agency Comment Spec In Lab Carli Tinsley MD HEMATOLOGY ORDERABLE S [facility] [place] [address] * (ABNORMAL) Comprehensive metabolic panel (non-fasting) (09/11/2018 4:45 PM EST) Glucose 81 65 - 199 mg/dL [facility] Comment:Diabetes: >=200 mg/d L plus symptoms Blood Urea Nitrogen 15 8 - 18 mg/dL [facility] Creatinine 0.83 0.70 - 1.20 mg/dL [facility] Sodium 141 135 - 145 mmol/L [facility] Potassium 4.1 3.5 - 5.0 mmol/L [facility] Comment: Please note: ??Patients with WBC >100,000 may have falsely elevated Potassium levels. ??For accurate Potassium quantification in these patients send serum separator tube (gold top) for subsequent determinations. ??Contact the Clinical Chemistry Laboratory if there are any questions. Chloride 101 98 - 107 mmol/L [facility] Carbon Dioxide 26 22 - 31 mmol/L [facility] Anion Gap 14 5 - 15 mmol/L [facility] Calcium 10.1 8.5 - 10.5 mg/dL [facility] Protein, Total 7.4 6.1 - 8.0 gm/dL [facility] Albumin 4.2 3.2 - 5.2 gm/dL [facility] Aspartate Aminotransferase 13 0 - 30 unit/L [facility] Alanine Aminotransferase 7 0 - 30 unit/L [facility] Alkaline Phosphatase 115(H) 40 - 104 unit/L [facility] Bilirubin, Total 0.2 0.2 - 1.3 mg/dL [facility] Est Glomerular Filtration Rate 78 >=60 mL/min/1. 73 m?? [facility] Comment: The eGFR was calculated using the CKD-EPI equation. As with all creatinine based estimates of kidney function, eGFR values calculated with the CKD-EPI equation are not accurate in patients with acute kidney failure, extremes of body mass or the acutely ill. http://[employer] eGFR 90 >=60 mL/min/1. 73 m?? [facility] Comment: The eGFR was calculated using the CKD-EPI equation. As with all creatinine based estimates of kidney function, eGFR values calculated with the CKD-EPI equation are not accurate in patients with acute kidney failure, extremes of body mass or the acutely ill. http://[employer]/[facility] Blood specimen (specimen) 09/11/2018 4:45 PM EST 09/11/2018 5:06 PM EST Narrative Resulting Agency Comment Spec In Lab Ken Guerrero MD CHEMISTRY ORDERABLES [facility] [place] [address] documented in this encounter Visit Diagnoses Diagnosis [...] RN) documented in this encounter Care Teams Microbiology Manager Relationship Specialty Start Date End Date [place] [address] PCP - General General Internal Medicine 06/28/1810/24 documented as of this encounter
--- OUTSIDE RECORDS SUMMARY | 2024-08-07 14:13 | XMS_ITS | Encounter Summary ---
Author Organization [facility] [address] Care Team Providers Care Periodontal Assistant Name Role Phone Yisel Marroquin MD Primary Care Provider Unavail able Encounter Details Date Type Department Care Team (Late st Contact Info) Description 08/22/2017 Abstract [place] Rice Conversion Results [address] [place] [address] Apd Conversion, Flowsheet Provider, Social History Tobacco [...] on filedocumented in this encounter Care Teams Periodontal Assistant Relationship Specialty Start Date End Date Yisel Marroquin MD PCP - General 11/13/18 03/05/19 documented as of this encounter
--- OUTSIDE RECORDS SUMMARY | 2024-08-07 14:13 | XMS_ITS | Encounter Summary ---
Author Organization [facility] Address [facility] [place] [address] Care Team Providers Care Loading Dock Helper Name Role Phone Yisel Marroquin MD Primary Care Provider Unavail able Encounter Details Date Type Department Care Team (Late st Contact Info) Description 03/28/2018 Abstract [place] Conversion Results [address] [place] [address] Apd Conversion, Flowsheet Provider, Social History Tobacco [...] on filedocumented in this encounter Care Teams Loading Dock Helper Relationship Specialty Start Date End Date Yisel Marroquin MD PCP - General 11/13/18 03/05/19 documented as of this encounter
--- OUTSIDE RECORDS SUMMARY | 2024-08-07 14:13 | XMS_ITS | Encounter Summary ---
[place] [address] Care Team Providers Care Pillow Cleaner Name Role Phone Yisel Marroquin MD Primary Care Provider Unavail able Encounter Details Date Type Department Care Team (Late st Contact Info) Description 01/04/2018 Orders Only Radiology and Cardiology Results [address] [place] [address] Apd Conversion, Results Provider, Social [...] 116.9 KORI FLORES DAY CONVERSION Hemoglobin A1c 5.6(Trainmaster al Lab) 4.5 - 6.2 FLORES DAY CONVERSION 01/04/2018 Results Provider Apd Conversion MD JASON ESTRELLA ORDERABLES KORI FLORES DAY CONVERSION documented in this encounter Visit Diagnoses Not on filedocumented in this encounter Care Teams Pillow Cleaner Relationship Specialty Start Date End Date Yisel Marroquin MD PCP - General 11/13/18 03/05/19 documented as of this encounter
--- OUTSIDE RECORDS SUMMARY | 2024-08-07 14:13 | XMS_ITS | Encounter Summary ---
Author Organization [facility] [place] [address] Care Team Providers Care Assembly Technician Name Role Phone Yisel Marroquin MD Primary Care Provider Unavail able Encounter Details Date Type Department Care Team (Late st Contact Info) Description 10/19/2018 Abstract [place] Conversion Results [address] [place] [address] Apd Conversion, Flowsheet Provider, Social History Tobacco [...] on filedocumented in this encounter Care Teams Assembly Technician Relationship Specialty Start Date End Date Yisel Marroquin MD PCP - General 11/13/18 03/05/19 documented as of this encounter
--- OUTSIDE RECORDS SUMMARY | 2024-08-07 14:13 | XMS_ITS | Encounter Summary ---
Author Organization [facility] [place] [address] Care Team Providers Care Special Weapons And Tactics Officer Name Role Phone Yisel Marroquin MD Primary Care Provider [phone] Reason for Visit * Reason Comments Dysphagia Fever Encounter Details Date Type Department Care Team (Late st Contact Info) Description 09/08/2018 3:39 PM EST - 09/08/2018 11:11 PM EST [place] [id number] Meena English MD [facility] [place] [address] Pneumonia due to organism Discharge Disposition: Home [...] y.o. female with history of ASCVD with UT 1 year ago, obesity status post gastric [...] contact the number below. ? 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 CADDIE SUPERVISOR TECHNIQUE: CT neck performed after the intravenous [...] (Bezet) 391 ms MUSE SYSTEM Calculated P [place] 46 degrees MUSE SYSTEM Calculated R [place] 52 degrees MUSE SYSTEM Calculated T [place] 34 degrees MUSE SYSTEM INTERPRETATION Marked sinus bradycardia Abnormal ECG When compared with ECG of 10-MAY-2016 07:53, No significant change was found Confirmed by MD Manish, Karl ([id number]) on 09/08/2018 9:41:34 PM MUSE SYSTEM 09/08/2018 7:26 PM EST 09/08/2018 9:41 PM EST Meena English MD ECG ORDERABLES MUSE SYSTEM * (ABNORMAL) Differential, Automated (09/08/2018 5:01 PM EST) Neutrophil % 67.7 % [facility] Neutrophil Absolute 6.27(H) 1.70 - 6.10 x10(3)/mc L [facility] Lymph % 23.5 % [facility] Lymphocytes Abs 2.2 0.9 - 3.2 x10(3)/ L [facility] Monocyte % 7.0 % [facility] Monocyte Abs 0.6 0.3 - 0.9 x10(3)/ L [facility] Eos % 0.6 % [facility] Eosinophils Abs 0.1 0.0 - 0.4 x10(3)/ L [facility] Basophil % 0.8 % [facility] Baso Absolute 0.1 0.0 - 0.1 x10(3)/ L [facility] Immature Gran % 0.40 % [facility] Comment: Immature granulocytes(IG's)percentage and absolute count will include metamyelocytes, myelocytes, and promyelocytes. Blood smears from CBCs yielding IG's will be scanned manually for concordance. If this scan disagrees with the automated IG or if promyelocytes are noted, a manual differential will be performed. Immature Gran Absolute 0.04 0.00 - 0.04 x10(3)/mc L [facility] Blood specimen (specimen) 09/08/2018 5:01 PM EST 09/08/2018 5:01 PM EST Narrative Resulting Agency Comment Spec In Lab Gerald Benton MD HEMATOLOGY GUS DRAKE Performing Organization Address City/[facility]/ZIP Co de Phone Number [facility] [place] [address] * (ABNORMAL) Hemogram (09/08/2018 5:01 PM EST) White Blood Cell 9.3 4.0 - 9.5 x10(3)/mc L [facility] Red Blood Cell 4.60 4.00 - 5.21 x10(6)/mc L [facility] Hemoglobin 14.2 11.7 - 15.5 gm/dL [facility] Hematocrit 44.9 35.7 - 45.8 % [facility] Mean Cell Volume 97.6(H) 82.6 - 94.4 fL [facility] Mean Cell Hemoglobin 30.9 27.1 - 32.0 pg [facility] Mean Cell Hemoglobin Concentration 31.6(L) 31.7 - 35.0 gm/dL [facility] Platelet 249 145 - 357 x10(3)/mc L [facility] RDW Standard Deviation 49.3(H) 37.0 - 46.0 [facility] RDW coefficient of variation 13.5 11.5 - 14.1 % [facility] Mean Platelet Volume 9.8 7.6 - 12.9 [facility] NRBC% auto 0.0 % [facility] NRBC Absolute 0.000 0.000 - 0.000 x10(3)/mc L [facility] Blood specimen (specimen) 09/08/2018 5:01 PM EST 09/08/2018 5:01 PM EST Narrative Resulting Agency Comment Spec In Lab Gerald DRAKE [facility] [place] [address] * (ABNORMAL) pro-Brain Natriuretic Peptide (09/08/2018 5:01 PM EST) NT-proBNP 347(H) <=125 pg/mL [facility] Blood specimen (specimen) 09/08/2018 5:01 PM EST 09/08/2018 5:01 PM EST Narrative Resulting Agency Comment Spec In Lab Meena English MD CHEMISTRY ORDERABLES [facility] [place] [address] * Troponin (09/08/2018 5:01 PM EST) Pathologist [facility] Troponin-T <0.01 0.00 - 0.00 ng/mL [facility] Comment: The 99th percentile for Troponin T is less than 0.01 ng/mL, any detectable cTnT concentration using this assay should be considered elevated. According to the third universal definition of myocardial infarction the following criteria with a clinical presentation consistent with acute myocardial ischemia meets the diagnosis for a myocardial infarction (UT). Detection of a rise and/or fall of cTnT, with at least one value greater than the 99th percentile (> or = 0.01) and with at least one of the following ?? Symptoms of ischemia ?? New or presumed new significant YG-siohyuj-I wave (ST-T) changes or new left bundle [...] additional sample may be indicated. Reference: Third Hamler Definition of Myocardial Infarction. Journal of the [place] College [employer] 2012;60:1581-98 Blood specimen (specimen) 09/08/2018 5:01 PM EST 09/08/2018 5:01 PM EST Narrative Resulting Agency Comment Spec In Lab Meena English MD CHEMISTRY ORDERABLES [facility] [place] [address] * Basic Metabolic Panel (non-fasting) (09/08/2018 5:01 PM EST) Glucose 92 65 - 199 mg/dL [facility] Comment:Diabetes: >=200 mg/d L plus symptoms Blood Urea Nitrogen 9 8 - 18 mg/dL [facility] Creatinine 0.88 0.70 - 1.20 mg/dL [facility] Sodium 143 135 - 145 mmol/L [facility] Potassium 4.6 3.5 - 5.0 mmol/L [facility] Comment: Please note: ??Patients with WBC >100,000 may have falsely elevated Potassium levels. ??For accurate Potassium quantification in these patients send serum separator tube (gold top) for subsequent determinations. ??Contact the Clinical Chemistry Laboratory if there are any questions. Chloride 103 98 - 107 mmol/L [facility] Carbon Dioxide 30 22 - 31 mmol/L [facility] Anion Gap 10 5 - 15 mmol/L [facility] Calcium 9.9 8.5 - 10.5 mg/dL [facility] Est Glomerular Filtration Rate 72 >=60 mL/min/1. 73 m?? [facility] Comment: The eGFR was calculated using the CKD-EPI equation. As with all creatinine based estimates of kidney function, eGFR values calculated with the CKD-EPI equation are not accurate in patients with acute kidney failure, extremes of body mass or the acutely ill. http://[email or web address] eGFR 84 >=60 mL/min/1. 73 m?? [facility] Comment: The eGFR was calculated using the CKD-EPI equation. As with all creatinine based estimates of kidney function, eGFR values calculated with the CKD-EPI equation are not accurate in patients with acute kidney failure, extremes of body mass or the acutely ill. http://[email or web address] Blood specimen (specimen) 09/08/2018 5:01 PM EST 09/08/2018 5:01 PM EST Narrative Resulting Agency Comment Spec In Lab Meena English MD CHEMISTRY ORDERABLES Performing Organization Address [facility] Co de Phone Number [facility] [place] [address] * Gold Tube HOLD (09/08/2018 5:01 PM EST) Gold Hold Sample in lab. [facility] Blood specimen (specimen) Venous Draw / Unknown 09/08/2018 5:01 PM EST 09/08/2018 5:02 PM EST Gerald Benton MD CHEMISTRY ORDER [place] Performing Organization Address [facility] [place] [address] * Blue Tube HOLD (09/08/2018 5:01 PM EST) Blue Hold Sample in lab. [facility] Blood specimen (specimen) Venous Draw / Unknown 09/08/2018 5:01 PM EST 09/08/2018 5:03 PM EST Gerald Benton MD HEMATOLOGY GUS DRAKE Performing Organization Address [facility] de Phone Number [facility] [place] [address] * XR Chest PA & Lateral (Generic) [...] Hill) documented in this encounter Care Teams Special Weapons And Tactics Officer Relationship Specialty Start Date [place] [address] PCP - General General Internal Medicine 06/28/1810/24 documented as of this encounter
--- OUTSIDE RECORDS SUMMARY | 2024-08-07 14:13 | XMS_ITS | Encounter Summary ---
[place] [address] Care Team Providers Care Manager Center Name Role Phone Yisel Marroquin MD Primary Care Provider Unavail able Encounter Details Date Type Department Care Team (Late st Contact Info) Description 01/04/2018 Orders Only Radiology and Cardiology Results [address] [place] [address] Apd Conversion, Results Provider, Social [...] Lab) [facility] CONVERSION LDL Cholesterol 63(Cash Applications Analyst al Lab) [facility] CONVERSION HDL Cholesterol 40(Cash Applications Analyst al Lab) 40 - 60 [facility] CONVERSION Triglyceride 154(ExtH) 30 - 150 [facility] P [place] [facility] CONVERSION Cholesterol, Total 134(Exter nal Lab) 50 - 200 [facility] CONVERSION 01/04/2018 Results Provider Apd Conversion MD JASON ESTRELLA ORDERABLES [facility] CON[facility] documented in this encounter Visit Diagnoses Not on filedocumented in this encounter Care Teams Manager Center Relationship Specialty Start Date End Date Yisel Marroquin MD PCP - General 11/13/18 03/05/19 documented as of this encounter
--- OUTSIDE RECORDS SUMMARY | 2024-08-07 14:13 | XMS_ITS | Encounter Summary ---
Author Organization [facility] [place] [address] Care Team Providers Care Director Of Counterintelligence Name Role Phone Yisel Marroquin MD Primary Care Provider Unavail able Reason for Visit * Reason Onset Date Comments Medication Refill 01/04/2019 Encounter Details Date Type Department Care Team (Late st Contact Info) Description 01/04/2019 Refill Primary Care at [facility] [address] [place] [phone] Yisel Marroquin MD CAD (coronary artery disease) [...] Coronary atherosclerosis of unspecified type of vessel, afognak or graft documented in this encounter Care Teams Director Of Counterintelligence Relationship Specialty Start Date End Date Yisel Marroquin MD PCP - General 11/13/18 03/05/19 documented as of this encounter
--- OUTSIDE RECORDS SUMMARY | 2024-08-07 14:13 | XMS_ITS | Encounter Summary ---
Author Organization [facility] [place] [address] Care Team Providers Care Regional Sales Trainer Name Role Phone Aman Lawrence APRN Primary Care Provider [phone] Encounter Details Date Type Department Care Team (Late st Contact Info) Description 01/19/2017 Orders [place] [address] Kenya Villanueva, RN Social History Tobacco Use [...] on filedocumented in this encounter Care Teams Regional Sales Trainer Relationship Specialty Start Date End Date Aman Lawrence [place] [address] PCP - General 06/16/10 06/27/18 documented as of this encounter
--- OUTSIDE RECORDS SUMMARY | 2024-08-07 14:13 | XMS_ITS | Encounter Summary ---
Author Organization [facility] Address [facility] [place] [address] Care Team Providers Care Tech Brazer Tester Name Role Phone Aman Lawrence APRN Primary Care Provider [phone] Reason for Visit * Reason Comments Chest Pain Coronary Artery Disease Hypertension Encounter Details Date Type Department Care Team (Latest Contact Info) Description 12/13/2016 10:00 AM EDT Office Visit Cardiology at [address] [address] Freddy Mejias MD [facility] [address] Atherosclerosis of [place] coronary artery of [place] heart without angina pectoris; Essential hypertension Social [...] List Diagnosis ??? Osteoporosis DEXA done at [facility] on 10/29/15: osteoporosis at the left hip T-3, and osteopenia of the spine T-1.9 ??? Atherosclerosis of [place] coronary artery of [place] heart without angina pectoris ??? Hypertension ??? [...] BIOPSY performed by Ken Sanders MD at [facility] ENDOSCOPY ??? UPPER GI ENDOSCOPY, EXAM 12/04/2010 UPPER GI ENDOSCOPY performed by DEE WRIGHT at [facility] No family history on [...] Social history: , no children. Lives in [place]. 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 Smoking: Active smoker, 2ppd Alcohol: Prior alcoholic, [...] 2 times daily. 360 tablet 3 ??? darcrslchjwn-okco-ybgxcwhx (COMPLETE MULTIVITAMIN) Tablet Take 1 tablet by [...] this encounter Visit Diagnoses Diagnosis Atherosclerosis of [place] coronary artery of [place] heart without angina pectoris Essential hypertension Unspecified essential hypertension documented in this encounter Care Teams Tech Brazer Tester Relationship Specialty Start Date End Date Aman Lawrence APRN [address] [place] [address] PCP - General 06/16/10 06/27/18 documented as of this encounter
--- OUTSIDE RECORDS SUMMARY | 2024-08-07 14:13 | XMS_ITS | Encounter Summary ---
Author Organization [facility] Address [facility] [place] [address] Care Team Providers Care Cocoa Bean Cleaner Name Role Phone Yisel Marroquin MD Primary Care Provider [phone] Reason for Visit * Reason Onset Date Comments Pre Procedure Call 09/12/2018 MED STOP- urg ent surgery scheduled Encounter Details Date Type Department Care Team (Late st Contact Info) Description 09/12/2018 Telephone Cardiology at [address] [address] Freddy Mejias MD [facility] [place] [address] Pre Procedure Call (MED STOP- urgent surgery [...] if ok, and if she needs bridging. [phone] Thank you documented in this encounter Plan of Treatment Not on file documented as of this encounter Visit Diagnoses Not on filedocumented in this encounter Care Teams Cocoa Bean Cleaner Relationship Specialty Start Date [place] [address] PCP - General General Internal Medicine 06/28/1810/24 documented as of this encounter
--- OUTSIDE RECORDS SUMMARY | 2024-08-07 14:13 | XMS_ITS | Encounter Summary ---
Author Organization [facility] Address [facility] [place] [address] Care Team Providers Care Mirror Maker Name Role Phone Yisel Marroquin MD Primary Care Provider Unavail able Encounter Details Date Type Department Care Team (Late st Contact Info) Description 02/14/2018 Abstract [place] Conversion Results [address] [place] [address] Apd Conversion, Flowsheet Provider, Social History Tobacco [...] on filedocumented in this encounter Care Teams Mirror Maker Relationship Specialty Start Date End Date Yisel Marroquin MD PCP - General 11/13/18 03/05/19 documented as of this encounter
--- OUTSIDE RECORDS SUMMARY | 2024-08-07 14:13 | XMS_ITS | Encounter Summary ---
Author Organization [facility] [place] [address] Care Team Providers Care Staff Occupational Therapist Name Role Phone Yisel Marroquin MD Primary Care Provider Unavail able Encounter Details Date Type Department Care Team (Late st Contact Info) Description 07/14/2017 Abstract [place] Conversion Results [address] [place] [address] Apd Conversion, Flowsheet Provider, Social History Tobacco [...] on filedocumented in this encounter Care Teams Staff Occupational Therapist Relationship Specialty Start Date End Date Yisel Marroquin MD PCP - General 11/13/18 03/05/19 documented as of this encounter
--- OUTSIDE RECORDS SUMMARY | 2024-08-07 14:13 | XMS_ITS | Encounter Summary ---
[place] [address] Care Team Providers Care Reexaminer Name Role Phone Yisel Marroquin MD Primary Care Provider Unavail able Reason for Visit * Reason Comments Medication Refill Encounter Details Date Type Department Care Team (Late st Contact Info) Description 12/12/2018 Refill Primary Care at [facility] [address] [place] [phone] Yisel Marroquin MD Social History Tobacco Use [...] on filedocumented in this encounter Care Teams Reexaminer Relationship Specialty Start Date End Date Yisel Marroquin MD PCP - General 11/13/18 03/05/19 documented as of this encounter
--- OUTSIDE RECORDS SUMMARY | 2024-08-07 14:13 | XMS_ITS | Encounter Summary ---
Author Organization [facility] [place] [address] Care Team Providers Care Solvent Recoverer Name Role Phone Yisel Ventura MD Primary Care Provider [phone] Encounter Details Date Type Department Care Team (Late st Contact Info) Description 09/19/2018 12:45 PM EST - 09/19/2018 1:15 PM EST [place] [phone] Tyron Mercado MD [facility] [place] [address] UPPER GASTROINTESTINAL ENDOSCOPY,WITH BIOPSY SINGLE OR MULTIPLE [...] - 09/19/2018 1:11 PM EST Please call [phone] before 8pm Mon-Fri with problems, questions or concerns. If you call after 8pm or on weekends, call the Hospital at [phone] and ask to speak to the [place] transportation program director and the arbor press operator will contact that person for you. * Attachments The following attachments cannot be sent through Care Everywhere. * EGD (Upper Endoscopy): Post-op (Bulgarian) documented in this encounter Medications at Time [...] Lumbago M54.5 ??? Atherosclerosis of [place] coronary artery of [place] heart without angina pectoris I25.10 ??? Hypertension [...] Report (09/19/2018 12:59 PM EST) Final Diagnosis [id number] ? Location: 4T; EA07; A The signing [...] Vigil MD Verified: ??09/22/2018 ?Pathologist Performed at: ??-[facility] Dept. of Pathology, [place], [place] CLINICAL INFORMATION Specimen Submitted: A - [...] labeled C1. ??ejr 09/22/2018 3:24 PM EST [facility] GI Biopsy 09/19/2018 12:5 9 PM EST 09/19/2018 12:59 PM EST GI Biopsy 09/19/2018 12:5 9 PM EST 09/19/2018 12:59 PM EST GI Biopsy 09/19/2018 12:5 9 PM EST 09/19/2018 12:59 PM EST Tyron Mercado MD PATHOLOGY/CYTOLOGY ORDERABLES Performing Organization Address City/[facility]/ZIP Co de Phone Number [facility] [place] [address] * Specimen to Pathology (09/19/2018 12:59 PM EST) AP Specimen 09/19/2018 12:5 9 PM EST 09/19/2018 12:59 PM EST Narrative [facility] - 09/19/2018 12:59 PM EST Specimen requisition ordered. ??Separate Pathology report to follow Tyron Mercado MD PATHOLOGY/CYTOLOGY ORDERABLES Performing Organization Address City/[facility]/ZIP Co de Phone Number [facility] [place] [address] * Specimen to Pathology (09/19/2018 12:59 PM EST) AP Specimen 09/19/2018 12:5 9 PM EST 09/19/2018 12:59 PM EST Narrative [facility] - 09/19/2018 12:59 PM EST Specimen requisition ordered. ??Separate Pathology report to follow Tyron Mercado MD PATHOLOGY/CYTOLOGY ORDERABLES Performing Organization Address City/[facility]/ZIP Co de Phone Number [facility] [place] [address] * Specimen to Pathology (09/19/2018 12:59 PM EST) AP Specimen 09/19/2018 12:5 9 PM EST 09/19/2018 12:59 PM EST Narrative [facility] - 09/19/2018 12:59 PM EST Specimen requisition ordered. ??Separate Pathology report to follow Tyron Mercado MD PATHOLOGY/CYTOLOGY ORDERABLES Performing Organization Address [facility]/ZIP Co de Phone Number [facility] [place] [address] * UPPER GI ENDOSCOPY (09/19/2018 12:17 PM EST) Pathologist [facility] UPPER GI ENDOSCOPY [facility] Endoscopy Procedure Date: 09/19/2018 12:17 PM ? Patient Name: Jeannie Rico ? [facility]: [id number] ? Date of : 1960 ? Age: 58 ? Order #: [id number] ? Instrument Name: [id number] ? Procedure: ? Upper GI endoscopy Indications: ? Dysphagia Providers: ? Tyron Mercado MD, Andrés Teixeira, ? Jeannie Alcazar RN, Anaid Ardon, ? Rink Rat Referring MD: ?Yisel Ventura MD Medicines: ? [...] EST Yisel Ventura MD GENERAL SURGICAL ORD [facility] documented in this encounter Visit [...] MD) documented in this encounter Care Teams Solvent Recoverer Relationship Specialty Start Date End Date [place] [address] PCP - General General Internal Medicine 06/28/1810/24 documented as of this encounter
--- OUTSIDE RECORDS SUMMARY | 2024-08-07 14:13 | XMS_ITS | Encounter Summary ---
Author Organization [facility] [place] [address] Care Team Providers Care Instrument Lens Grinder Name Role Phone Yisel Marroquin MD Primary Care Provider Unavail able Encounter Details Date Type Department Care Team (Late st Contact Info) Description 12/11/2018 Orders Only Primary Care at [facility] [address] [place] [address] Ruth Rene Social History Tobacco Use Types [...] filedocumented in this encounter Care Teams Instrument Lens Grinder Relationship Specialty Start Date End Date Yisel Marroquin MD PCP - General 11/13/18 03/05/19 documented as of this encounter
--- OUTSIDE RECORDS SUMMARY | 2024-08-07 14:13 | XMS_ITS | Encounter Summary ---
[place] [address] Care Team Providers Care Drying Tumbler Operator Name Role Phone Yisel Marroquin MD Primary Care Provider Unavail able Reason for Visit * Reason Onset Date Comments Medication Refill 12/14/2018 Encounter Details Date Type Department Care Team (Late st Contact Info) Description 12/14/2018 Refill Primary Care at [facility] [address] [place] [phone] Yisel Marroquin MD B12 deficiency Social History [...] Cruz RN - 12/14/2018 5:25 PM EDT [facility] called because they received a vitamin B12 1000mcg rx. The rx was for QD, but is usually for every week. 4 tabs were sent in. Rx fixed and sent to pharmacy. documented in this encounter Plan of Treatment Not on file documented as of this encounter Visit Diagnoses Diagnosis B12 deficiency Other B-complex deficiencies documented in this encounter Care Teams Drying Tumbler Operator Relationship Specialty Start Date End Date Yisel Marroquin MD PCP - General 11/13/18 03/05/19 documented as of this encounter
--- OUTSIDE RECORDS SUMMARY | 2024-08-07 14:13 | XMS_ITS | Encounter Summary ---
Author Organization [facility] [place] [address] Care Team Providers Care Physiotherapy Practice Manager Name Role Phone Yisel Marroquin MD Primary Care Provider Unavail able Reason for Visit * Reason Comments Follow-up Annual visit S/P RNY gastric bypass Encounter Details Date Type Department Care Team (Late st Contact Info) Description 11/15/2018 9:00 AM EDT Office [place] [address] Sidra Del Toro, Tamar Navarrete, RD [facility] [place] [address] Disorder of iron metabolism; Status post bariatric [...] Guerra, RD - 11/15/2018 9:00 AM EDT [facility] director of academic support Lela [phone] and [place] [phone] Dietitians: [phone] Surgeons/ nurse practitioners: [phone] Nurse line: [phone] Ask your PCP about the timing of your next bone density scan Testing: Labwork: soon. Go to [facility], which is 1 flight below the General Surgery Clinic (or any lab including [facility] (open on Tuesdays) Please note that you will always receive a letter with lab results and recommendations. Read the letter carefully and follow recommendations. The letter also contains information regarding your next lab draw. A copy of your office visit today is sent to your primary skin care specialist Next visit: 1 year Routine visits are done at 4.8,12, 18 and 24 months after surgery, and yearly thereafter. Please call [phone] if you do not receive an appointment [...] of every month from 1-2 PM at [facility]- no registration required Nutrition and Activity apps- Baritastic, My Fitness Pal, Lose It, My Plate Internet resources: www.Graspr www.FedTax www.bariatriceating.com www.Quaero.Knock Knock/blog [facility] facebook page: https://www.facebook.com/[facility] CITYBariatricSurgery Books & Magazines: - Recipes for Life After Weight Loss Surgery by Suly Cruz - Shrink Yourself by Dr Juan Carlos Carlos - Eating Well - www.[employer].Knock Knock - Cooking Light- www.[employer].Knock Knock documented in this encounter Progress Notes * [...] protein drinks Social History: Has a supportive case planner. OBJECTIVE: Type of Surgery: non-divided RNY gastric bypass on 05/12/00 ?? Weight History: Date WT HT 64 BMI Comments 06/08/99 306 %EWL 51.8 Pre-op weight 08/13/10 248 30 42.5 ?? 11/11/10 237 37.5 40.7 ?? 07/04/13 236 37.5 40.5 13 Years post-op 10/23/15 238 36.3% 41.6 15.5 years post-op 11/15/16 228# 42.3% 40.5 16.5 years post-op 11/15/18 221# 53% 38.1 18.5 years post-op [place] Body Weight (based on BMI of 25): [...] month ?? Exercise: yoga, meditation daily, With [employer] weather walks daily ?? ASSESSMENT: ?? Summary [...] of contrast was clearly seen within the bishop paiute fundus indicating a leak. The site of [...] use ? Colonoscopy ? Mammogram - Pap [facility] 10/29/15 DEXA Osteoporosis left hip, treated with [...] BIOPSY performed by Ken Sanders MD at [facility] ENDOSCOPY ??? PRO UPPER GI ENDOSCOPY, BIOPSY N/A 09/19/2018 UPPER GASTROINTESTINAL ENDOSCOPY,WITH BIOPSY SINGLE OR MULTIPLE (WRVU 2.49) performed by Tyron Mercado MD at [facility] ENDOSCOPY ??? TONSILLECTOMY ??? UPPER GI ENDOSCOPY, EXAM 12/04/2010 UPPER GI ENDOSCOPY performed by DEE WRIGHT at [facility] ENDOSCOPY Allergies: as per allergy list [...] blood in stool [] chronic diarrhea/ constipation SOCIAL MEDIA CONTENT MANAGER: [] LMP: [] control [] menorrhagia [x] post-menopause Heme/Lymph: [] excessive bruising or bleeding [] blood donor in past year Psychiatric [] mental health concerns Other: Employment/social: disabled/ to [place] who has schizophrenia Health-related habits: Nicotine: as noted above Alcohol: none Physical activity: as per RD Objective: General: 58 y.o. year-old female looks well, appears upbeat. She is accompanied by her product analystDorcas Heart: Normal S1S2. RRR Lungs: CTA bilaterally [...] If labwork is done by the primary skin care specialist: pleasesend a copy to the Bariatric Surgery Program, General Surgery Clinic, [facility], Questions regarding [facility] Bariatric Surgery Program patients: please call the Bariatric Surgery Program at [phone] documented in this encounter Plan of Treatment Not on file documented as of this encounter Results * (ABNORMAL) Hemoglobin A1c (02/07/2019 12:41 PM EDT) [facility] Hemoglobin A1c 5.9(H) 4.3 - 5.6 % LABORATORY Estimated Average Glucose 123 mg/dL [facility] Blood specimen (specimen) 02/07/2019 12:41 PM EDT 02/07/2019 2:07 PM EDT Narrative Resulting Agency Comment Spec In Lab / APD Sidra T Alverto SUPERINTENDENT DRILLING CHEMISTRY ORDERAB LES Performing Organization Address City/[facility]/ZIP Co de Phone Number [facility] [address] [place] [address] * (ABNORMAL) Iron and TIBC (02/07/2019 12:41 PM EDT) [facility] Iron 64 30 - 150 mcg/dL [facility] TIBC 351 250 - 450 mcg/dL [facility] Iron Saturation 18(L) 20 - 50 % [facility] Blood specimen (specimen) 02/07/2019 12:41 PM EDT 02/07/2019 2:05 PM EDT Narrative Resulting Agency Comment Spec In Lab / APD Sidra Del Toro SUPERINTENDENT DRILLING CHEMISTRY ORDERAB LES Performing Organization Address City/[facility]/ZIP Co de Phone Number [facility] [address] [place] [address] * (ABNORMAL) Ferritin (02/07/2019 12:41 PM EDT) [facility] Ferritin 19(L) 30 - 400 ng/mL [facility] Comment: Pediatric reference ranges not verified at [facility], interpret with caution. Reference ranges for females greater than 50 years of age approach values for men, i.e., 30-400 ng/mL. Blood specimen (specimen) 02/07/2019 12:41 PM EDT 02/07/2019 2:05 PM EDT Narrative Resulting Agency Comment Spec In Lab / APD Sidra T Alverto SUPERINTENDENT DRILLING CHEMISTRY ORDERAB LES Performing Organization Address City/[facility]/ZIP Co de Phone Number [facility] [address] [place] [address] * (ABNORMAL) PTH (02/07/2019 12:41 PM EDT) Parathyroid Hormone 71(H) 15 - 65 pg/mL [facility] Blood specimen (specimen) 02/07/2019 12:41 PM EDT 02/07/2019 3:55 PM EDT Narrative Resulting Agency Comment Spec In Lab / APD Sidra Bray Alverto WOLFN CHEMISTRY ORDERAB LES Performing Organization Address [facility] Co de Phone Number [facility] [place] [address] * Vitamin B12 (02/07/2019 12:41 PM EDT) Vitamin B12 603 232 - 1,245 pg/mL [facility] Blood specimen (specimen) 02/07/2019 12:41 PM EDT 02/07/2019 3:55 PM EDT Narrative Resulting Agency Comment Spec In Lab / APD Sidra Bray Alverto SUPERINTENDENT DRILLING CHEMISTRY ORDERAB LES Performing Organization Address [facility] Co de Phone Number [facility] [place] [address] * Vitamin B1, whole blood (02/07/2019 12:41 PM EDT) Vit B1 Lvl Wb (NOVEMBER) 128 70 - 180 nmol/L [facility] Comment: ADDITIONAL INFORMATION This test was developed and its performance characteristics determined by [facility] in a manner consistent with CLIA requirements. This test has not been cleared or approved by the U.S. Food and Drug Administration. Test Performed by: [facility] [address] [place] [address] Blood specimen (specimen) 02/07/2019 12:41 PM EDT 02/07/2019 5:37 PM EDT Narrative Resulting Agency Comment Spec In Lab / APD Sidra Del Toro APRN LAB SEND OUT ORDE VIDAL Performing Organization Address City/[facility]/ZIP Co de Phone Number [facility] [address] [place] [address] * Vitamin D, 25-Hydroxy (02/07/2019 12:41 PM EDT) Vitamin D Total 25 OH 36 30 - 100 ng/mL [facility] Comment: Deficient <10 ng/mL Insufficient 10 to 29 ng/mL Sufficient 30 to 100 ng/mL Potential Intoxication >100 ng/mL According to the US National Osteoporosis Foundation, Vitamin D concentrations >30 ng/mL are sufficient to protect bone health. ??The National Kidney Foundation has similarly stated that patients with Vitamin D concentrations <30ng/mL should be considered to be insufficient or deficient. http://YourStreet.Knock Knock/nkf-guidelines http://YourStreet.Knock Knock/nejm-VitD The IDS iSYS Vitamin D Immunoassay detects both 25-OH Vitamin D2 and 25-OH Vitamin D3, but only a total Vitamin D concentration is reported. Blood specimen (specimen) 02/07/2019 12:41 PM EDT 02/08/2019 7:27 AM EDT Narrative Resulting Agency Comment Spec In Lab / APD Sidra Del Toro APRN CHEMISTRY ORDERAB LES Performing Organization Address City/[facility]/ZIP Co de Phone Number [facility] [place] [address] * Folate, serum (02/07/2019 12:41 PM EDT) Folate 8.6 4.8 - 24.2 ng/mL [facility] Blood specimen (specimen) 02/07/2019 12:41 PM EDT 02/07/2019 3:55 PM EDT Narrative Resulting Agency Comment Spec In Lab / APD Sidra Del Toro SUPERINTENDENT DRILLING CHEMISTRY ORDERAB LES [facility] [place] [address] documented in this encounter Visit Diagnoses Diagnosis [...] type documented in this encounter Care Teams Physiotherapy Practice Manager Relationship Specialty Start Date End Date Yisel Marroquin MD PCP - General 11/13/18 03/05/19 documented as of this encounter
--- OUTSIDE RECORDS SUMMARY | 2024-08-07 14:13 | XMS_ITS | Encounter Summary ---
Author Organization [facility] [place] [address] Care Team Providers Care Acid Bleacher Name Role Phone Yisel Marroquin MD Primary Care Provider Unavail able Encounter Details Date Type Department Care Team (Late st Contact Info) Description 02/28/2018 Abstract [place] Conversion Results [address] [place] [address] Apd Conversion, Flowsheet Provider, Social History Tobacco [...] filedocumented in this encounter Care Teams Acid Bleacher Relationship Specialty Start Date End Date Yisel Marroquin MD PCP - General 11/13/18 03/05/19 documented as of this encounter
--- OUTSIDE RECORDS SUMMARY | 2024-08-07 14:13 | XMS_ITS | Encounter Summary ---
Author Organization [facility] Address [facility] [place] [address] Care Team Providers Care Turf Grower Name Role Phone Yisel Marroquin MD Primary Care Provider Unavail able Encounter Details Date Type Department Care Team (Late st Contact Info) Description 03/29/2017 Abstract [place] Conversion Results [address] [place] [address] Apd Conversion, Flowsheet Provider, Social History Tobacco [...] on filedocumented in this encounter Care Teams Turf Grower Relationship Specialty Start Date End Date Yisel Marroquin MD PCP - General 11/13/18 03/05/19 documented as of this encounter
--- OUTSIDE RECORDS SUMMARY | 2024-08-07 14:13 | XMS_ITS | Encounter Summary ---
[place] [address] Care Team Providers Care Gas Station Attendant Name Role Phone Yisel Marroquin MD Primary Care Provider [phone] Reason for Visit * Reason Onset Date Comments Other 09/11/2018 Encounter Details Date Type Department Care Team (Late st Contact Info) Description 09/11/2018 Telephone [place] [address] Sidra Del Toro, JUSTICE COURT JUDGE Other Social History Tobacco Use Types Packs/Day [...] filedocumented in this encounter Care Teams Gas Station Attendant Relationship Specialty Start Date End Date Yisel [place]roquin [place] [address] PCP - General General Internal Medicine 06/28/1810/24 documented as of this encounter
--- OUTSIDE RECORDS SUMMARY | 2024-08-07 14:13 | XMS_ITS | Encounter Summary ---
Author Organization [facility] Address [facility] [address] [place] [address] Care Team Providers Care Fabric Coating Supervisor Name Role Phone Aman Lawrence APRN Primary Care Provider [phone] Encounter Details Date Type Department Care Team (Late st Contact Info) Description 02/28/2018 Interpretation Only [facility] [address] [place] [id number] Sherly Earl APRN [address] [place] [address] Social History Tobacco Use Types Packs/Day Years [...] on filedocumented in this encounter Care Teams Fabric Coating Supervisor Relationship Specialty Start Date End Date Aman Lawrence [place] [place] [address] PCP - General 06/16/10 06/27/18 documented as of this encounter
--- OUTSIDE RECORDS SUMMARY | 2024-08-07 14:14 | XMS_ITS | Encounter Summary ---
[place] [address] Care Team Providers Care Network Systems Engineer Name Role Phone Yisel Marroquin MD Primary Care Provider Unavail able Encounter Details Date Type Department Care Team (Late st Contact Info) Description 10/29/2015 Orders Only Radiology and Cardiology Results [address] [place] [address] Apd Conversion, Results Provider, Social [...] on filedocumented in this encounter Care Teams Network Systems Engineer Relationship Specialty Start Date End Date Yisel Marroquin MD PCP - General 11/13/18 03/05/19 documented as of this encounter
--- OUTSIDE RECORDS SUMMARY | 2024-08-07 14:14 | XMS_ITS | Encounter Summary ---
Author Organization [facility] [place] [address] Care Team Providers Care Touch Up Carver Name Role Phone Aman Lawrence APRN Primary Care Provider [phone] Reason for Visit * Reason Onset Date Comments Chest Pain 04/26/2016 Encounter Details Date Type Department Care Team (Late st Contact Info) Description 05/03/2016 Telephone Cardiology at [address] [phone] Yadira Sung RN Chest Pain Social History [...] (Bezet) 399 ms MUSE SYSTEM Calculated P [place] 55 degrees MUSE SYSTEM Calculated R [place] 61 degrees MUSE SYSTEM Calculated T [place] 36 degrees MUSE SYSTEM INTERPRETATION Sinus bradycardia [...] type documented in this encounter Care Teams Touch Up Carver Relationship Specialty Start Date End [place] [address] PCP - General 06/16/10 06/27/18 documented as of this encounter
--- OUTSIDE RECORDS SUMMARY | 2024-08-07 14:14 | XMS_ITS | Encounter Summary ---
Author Organization [facility] [place] [address] Care Team Providers Care Lead Consultant Name Role Phone Yisel Marroquin MD Primary Care Provider Unavail able Encounter Details Date Type Department Care Team (Late st Contact Info) Description 10/29/2015 Orders Only Radiology and Cardiology Results [address] [place] [address] Apd Conversion, Results Provider, Social [...] filedocumented in this encounter Care Teams Lead Consultant Relationship Specialty Start Date End Date Yisel Marroquin MD PCP - General 11/13/18 03/05/19 documented as of this encounter
--- OUTSIDE RECORDS SUMMARY | 2024-08-07 14:14 | XMS_ITS | Encounter Summary ---
Author Organization [facility] [place] [facility] Address [facility] [place] [address] Care Team Providers Care Branch Associate Name Role Phone Yisel Marroquin MD Primary Care Provider Unavail able Encounter Details Date Type Department Care Team (Late st Contact Info) Description 07/01/2016 Abstract [place] Conversion Results [address] [place] [address] Apd Conversion, Flowsheet Provider, Social History Tobacco [...] on filedocumented in this encounter Care Teams Branch Associate Relationship Specialty Start Date End Date Yisel Marroquin MD PCP - General 11/13/18 03/05/19 documented as of this encounter
--- OUTSIDE RECORDS SUMMARY | 2024-08-07 14:14 | XMS_ITS | Encounter Summary ---
[place] [address] Care Team Providers Care Jackscrew Worker Name Role Phone Adriana Perla APRN Primary Care Provider [phone] Encounter Details Date Type Department Care Team (Latest Contact Info) Description 12/18/2015 Multidisciplinary Ca re Committee [place] [address] Sidra Del Toro APRN Social History Tobacco [...] NA Evaluation by a member of the [facility] Bariatric Surgery Program previously: + Staff present at today's meeting: Kasia Crouch MD, Teaching Dietitian, Skinny Gomez MD, Meena Pena MD, Rajendra [...] on filedocumented in this encounter Care Teams Jackscrew Worker Relationship Specialty Start Date End Date Adriana Perla APRN [address] [place] [address] PCP - General 06/16/10 06/27/18 documented as of this encounter
--- OUTSIDE RECORDS SUMMARY | 2024-08-07 14:14 | XMS_ITS | Encounter Summary ---
[place] [address] Care Team Providers Care Nougat Candy Maker Helper Name Role Phone Aman Lawrence APRN Primary Care Provider [phone] Encounter Details Date Type Department Care Team (Late st Contact Info) Description 10/31/2015 Telephone [place] [address] Niecy Darden, RD Social History Tobacco Use [...] sliced chicken, turkey, and ham along with ukrainian muffins and whole wheat tortillas. She has [...] on filedocumented in this encounter Care Teams Nougat Candy Maker Helper Relationship Specialty Start Date End Date Aman Lawrence APRN [address] [place] [address] PCP - General 06/16/10 06/27/18 documented as of this encounter
--- OUTSIDE RECORDS SUMMARY | 2024-08-07 14:14 | XMS_ITS | Encounter Summary ---
Author Organization [facility] Address [facility] [place] [address] Care Team Providers Care Binder Stripper Machine Name Role Phone Yisel Marroquin MD Primary Care Provider Unavail able Encounter Details Date Type Department Care Team (Late st Contact Info) Description 08/03/2016 Abstract [place] Conversion Results [address] [place] [address] Apd Conversion, Flowsheet Provider, Social History Tobacco [...] on filedocumented in this encounter Care Teams Binder Stripper Machine Relationship Specialty Start Date End Date Yisel Marroquin MD PCP - General 11/13/18 03/05/19 documented as of this encounter
--- OUTSIDE RECORDS SUMMARY | 2024-08-07 14:14 | XMS_ITS | Encounter Summary ---
[place] [address] Care Team Providers Care Bail Agent Name Role Phone Aman Lawrence APRN Primary Care Provider [phone] [phone] Reason for Referral * Consultation (Routine) - Closed Specialty Diagnoses / Procedures Referred By Vanita dimas Referred To Contact Endocrinology Diagnoses Osteoporosis, unspecified osteoporosis type, unspecified pathological fracture presence Tobacco dependence Sidra Del Toro APRN [facility] [place] [address] [facility] [address] [place] [phone] Referral ID Status Reason Start Date Expiration Date V isits Requested Visits Authorized [id number] Closed Specialty Service Requested 11/19/2016 11/19/2017 1 1 Reason for Visit * Reason Comments Follow-up Bariatric Surgery Pr ogram follow up Encounter Details Date Type Department Care Team (Late st Contact Info) Description 11/15/2016 9:00 AM EDT Office [place] [id number] Sidra Del Toro APRN Stanzione, Rose A, [...] Niecy Darden - 11/15/2016 9:00 AM EDT [facility] Admin coordinator Rhonda: [phone] Dietitian: [phone] Surgeons/ nurse practitioner: [phone] Nurse line: [phone] Congratulations on your plan to stop smoking!! Testing: Labwork: Today. Go to Education Assistant Area 3, which is 1 flight below [...] after surgery, and yearly thereafter. Please call [phone] if you do not receive an appointment [...] of every month from 1-2 PM at [facility]- no registration required Nutrition and Activity apps- Baritastic, My Fitness Pal, Lose It, My Plate Internet resources: www.GoToTags wwwEupraxia Pharmaceuticals www.bariatriceating.Positive Networks www.Pixium Vision.Positive Networks/blog [facility] facebook page: https://www.facebook.com/[facility]ART[facility]ariatricSurgery Books & Magazines: - Recipes for Life [...] of contrast was clearly seen within the flandreau fundus indicating a leak. 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 At [facility] a non-enhanced CT scanof the abdomen was [...] in December She had an EGD at [facility] last November which was unremarkable Subjective. Patient [...] blood in stool [] chronic diarrhea/ constipation MANAGER ASSET MANAGEMENT: [] LMP: [] control [] menorrhagia [+] post-menopause Heme/Lymph: [] excessive bruising [] blood donor in past year Psychiatric [] mental health concerns Other: Exercise/activity level: as per RD note Employment/social: disabled/ Health-related habits: Tobacco: 2 cartons a week, rolled by pt Alcohol: none Dietary history: See dietitian note. Objective: General: 56 y.o. year-old female looks well. She is accompanied by her duplicating machine servicer Dorcas. Heart: RRR Lungs: CTA bilaterally without [...] labwork is done by the primary patient care: please send a copy to the Bariatric Surgery Program, General Surgery Clinic, [facility], attention Sidra Del Toro APRN. Questions regarding [facility] Bariatric Surgery Program patients: please call Jorge Del Toro APRN at [phone] or [phone] beeper [phone]. E-mail: [email or web address] * Niecy Darden - 11/15/2016 9:00 AM [...] years post-op Social History: Has a supportive onsite case manager. Vitamin/Mineral Supplements (reported by patient): [...] sometimes 1 slice cheese PM Snack Sometimes Yarsanism granola bar Dinner Soup- vegetable, chicken and rice, or tomato Or grilled zuchinni with ham roll up Or 1 egg and 1 slice toast HS Snack Sometimes fruit or tomatoes and carrots Protein/ grams per day: 30-40 grams Calories per day: 3092-7609 kcals Hydrating fluids- oz/ day: 62-68 oz [...] EDT) Folate >20.0 4.8 - 24.2 ng/mL [facility] Blood specimen (specimen) 11/15/2016 10:25 AM EDT 11/15/2016 10:36 AM EDT Narrative Resulting Agency Comment Spec In Lab Sidra Del Toro APRN CHEMISTRY ORDERAB LES [facility] [place] [address] * (ABNORMAL) Vitamin B1, whole blood (11/15/2016 10:25 AM EDT) Vit B1 Lvl Wb (NOVEMBER) 233(H) 70 - 180 nmol/L [facility] Comment: ADDITIONAL INFORMATION This test was developed and its performance characteristics determined by [facility] in a manner consistent with CLIA requirements. This test has not been cleared or approved by the U.S. Food and Drug Administration. Test Performed by: [address] [address] Blood specimen (specimen) 11/15/2016 10:25 AM EDT 11/15/2016 1:08 PM EDT Narrative Resulting Agency Comment Spec In Lab Sidra Katarina Finney [facility] SEND OUT ORDE RABLES Performing Organization Address City/[facility]/ZIP Co de Phone Number [facility] [place] [address] * PTH (11/15/2016 10:25 AM EDT) Parathyroid Hormone 47 15 - 65 pg/mL [facility] Blood specimen (specimen) 11/15/2016 10:25 AM EDT 11/15/2016 10:36 AM EDT Narrative Resulting Agency Comment Spec In Lab Sidra Katarina Alverto SACK SORTER CHEMISTRY ORDERAB LES Performing Organization Address [facility]/ZIP Co de Phone Number [facility] [place] [address] * (ABNORMAL) Vitamin B12 (11/15/2016 10:25 AM EDT) Vitamin B12 1,588(H) 207 - 974 pg/mL [facility] Blood specimen (specimen) 11/15/2016 10:25 AM EDT 11/15/2016 10:36 AM EDT Narrative Resulting Agency Comment Spec In Lab Sidra T Alverto SACK SORTER CHEMISTRY ORDERAB LES Performing Organization Address [facility]/ZIP Co de Phone Number [facility] [place] [address] * Iron and TIBC (11/15/2016 10:25 AM EDT) Iron 88 30 - 150 mcg/dL [facility] TIBC 390 250 - 450 mcg/dL [facility] Iron Saturation 23 20 - 50 % [facility] Blood specimen (specimen) 11/15/2016 10:25 AM EDT 11/15/2016 10:36 AM EDT Narrative Resulting Agency Comment Spec In Lab Sidra Del Toro SACK SORTER CHEMISTRY ORDERAB LES Performing Organization Address City/[facility]/ZIP Co de Phone Number [facility] [place] [address] * Ferritin (11/15/2016 10:25 AM EDT) Ferritin 36 30 - 400 ng/mL [facility] Comment: Pediatric reference ranges not verified at [facility], interpret with caution. Reference ranges for females greater than 50 years of age approach values for men, i.e., 30-400 ng/mL. Blood specimen (specimen) 11/15/2016 10:25 AM EDT 11/15/2016 10:36 AM EDT Narrative Resulting Agency Comment Spec In Lab Sidra T Alverto SACK SORTER CHEMISTRY ORDERAB LES Performing Organization Address City/[facility]/ZIP Co de Phone Number [facility] [place] [address] * Vitamin D, 25-Hydroxy (11/15/2016 10:25 AM EDT) Pathologist [facility] Vitamin D Total 25 OH 44 30 - 100 ng/mL [facility] Comment: Deficient <10 ng/mL Insufficient 10 to 29 ng/mL Sufficient 30 to 100 ng/mL Potential Intoxication >100 ng/mL According to the US National Osteoporosis Foundation, Vitamin D concentrations >30 ng/mL are sufficient to protect bone health. ??The National Kidney Foundation has similarly stated that patients with Vitamin D concentrations <30ng/mL should be considered to be insufficient or deficient. http://Biomoti.Positive Networks/DHnatlkidneyfoundation http://CoreOptics/DHVitD The IDS iSYS Vitamin D Immunoassay detects both 25-OH Vitamin D2 and 25-OH Vitamin D3, but only a total Vitamin D concentration is reported. Blood specimen (specimen) 11/15/2016 10:25 AM EDT 11/15/2016 1:13 PM EDT Narrative Resulting Agency Comment Spec In Lab Sidra Del Toro SACK SORTER CHEMISTRY ORDERAB LES [facility] [place] [address] documented in this encounter Visit Diagnoses Diagnosis Disorder of iron metabolism Other disorders of iron metabolism Status post bariatric surgery Bariatric surgery status Intestinal malabsorption, unspecified type Vitamin D deficiency Unspecified vitamin D deficiency Osteoporosis, unspecified osteoporosis type, unspecified pathological fracture presence Tobacco dependence Tobacco use disorder documented in this encounter Care Teams Bail Agent Relationship Specialty Start Date End Date Aman Lawrence APRN [place] [address] PCP - General 06/16/10 06/27/18 documented as of this encounter
--- OUTSIDE RECORDS SUMMARY | 2024-08-07 14:14 | XMS_ITS | Encounter Summary ---
Author Organization [facility] [place] [address] Care Team Providers Care Hand Surgeon Name Role Phone Yisel Marroquin MD Primary Care Provider Unavail able Encounter Details Date Type Department Care Team (Late st Contact Info) Description 08/03/2016 Abstract [place] [facility] Conversion Results [address] [place] [address] Apd Conversion, Flowsheet Provider, Social History Tobacco [...] filedocumented in this encounter Care Teams Hand Surgeon Relationship Specialty Start Date End Date Yisel Marroquin MD PCP - General 11/13/18 03/05/19 documented as of this encounter
--- OUTSIDE RECORDS SUMMARY | 2024-08-07 14:14 | XMS_ITS | Encounter Summary ---
Author Organization [facility] Address [facility] [place] [address] Care Team Providers Care Awning Maker And Installer Name Role Phone Yisel Marroquin MD Primary Care Provider Unavail able Encounter Details Date Type Department Care Team (Late st Contact Info) Description 09/28/2016 Abstract [place] [facility] Conversion Results [address] [place] [address] Apd Conversion, Flowsheet Provider, Social History Tobacco [...] on filedocumented in this encounter Care Teams Awning Maker And Installer Relationship Specialty Start Date End Date Yisel Marroquin MD PCP - General 11/13/18 03/05/19 documented as of this encounter
--- OUTSIDE RECORDS SUMMARY | 2024-08-07 14:14 | XMS_ITS | Encounter Summary ---
[place] [address] Care Team Providers Care Surfacer Name Role Phone Yisel Marroquin MD Primary Care Provider Unavail able Encounter Details Date Type Department Care Team (Late st Contact Info) Description 04/28/2016 Orders Only Radiology and Cardiology Results [address] [place] [address] Apd Conversion, Results Provider, Social [...] 116.9 [facility] CONVERSION Hemoglobin A1c 6.0(Human Intelligence al Lab) 4.5 - 6.2 [facility] CONVERSION 04/28/2016 Results Provider Apd Conversion MD JASON ESTRELLA ORDERABLES [facility] CON[facility] documented in this encounter Visit Diagnoses Not on filedocumented in this encounter Care Teams Surfacer Relationship Specialty Start Date End Date Yisel Marroquin MD PCP - General 11/13/18 03/05/19 documented as of this encounter
--- OUTSIDE RECORDS SUMMARY | 2024-08-07 14:14 | XMS_ITS | Encounter Summary ---
Author Organization [facility] Address [address] [facility] [place] [address] Care Team Providers Care Rural Mail Contractor Name Role Phone Yisel Marroquin MD Primary Care Provider Unavail able Encounter Details Date Type Department Care Team (Late st Contact Info) Description 01/25/2015 Interpretation Only Radiology [address] [facility] [place] [address] Unknown None Social History Tobacco Use Types [...] 2:54 PM EDT APD Historical Result Principal Rigging Foreman: ??ISAK ??ESCHBACH RIGHT ANKLE: INDICATION: ??Injury. COMPARISON: ??Right foot, January 25, 2015. FINDINGS: Three views of the right ankle show soft tissue swelling over the lateral malleolus. ??Three is no fracture, dislocation, or joint effusion. ??The base of the 5th metatarsal is intact. ??The ankle mortise is symmetric. IMPRESSION: Acute injury confined to the lateral soft tissues. Isak DO [place] /mn [id number] CC: Procedure Note Unknown - 01/22/2019 APD Historical Result Principal Rigging Foreman: ISAK BENAVIDES RIGHT ANKLE: INDICATION: Injury. COMPARISON: Right foot, January 25, 2015. FINDINGS: Three views of the right ankle show soft tissue swelling over the lateralmalleolus. Three is no fracture, dislocation, or joint effusion. The base of the 5thmetatarsal is intact. The ankle mortise is symmetric. IMPRESSION: Acute injury confined to the lateral soft tissues. Isak DO Va KE/mn [id number] CC: Unknown IMG DX ORDERABLES documented in this encounter Visit Diagnoses Not on filedocumented in this encounter Care Teams Rural Mail Contractor Relationship Specialty Start Date End Date Yisel Marroquin MD PCP - General 11/13/18 03/05/19 documented as of this encounter
--- OUTSIDE RECORDS SUMMARY | 2024-08-07 14:14 | XMS_ITS | Encounter Summary ---
Author Organization [facility] Address [facility] [place] [address] Care Team Providers Care Abalone Processor Name Role Phone Aman Lawrence APRN Primary Care Provider +1 -[phone] Reason for Visit * Reason Comments Chest Pain Coronary Artery Disease Encounter Details Date Type Department Care Team (Latest Contact Info) Description 06/14/2016 9:00 AM EST Office Visit Cardiology at [address] [address] Freddy Mejias MD [facility] [address] Atherosclerosis of osage coronary artery of osage heart without angina pectoris; History of cigarette [...] List Diagnosis ??? Osteoporosis DEXA done at [facility] on 10/29/15: osteoporosis at the [...] ENDOSCOPY performed by DEE WRIGHT at [facility] ENDOSCOPY ??? Abdomen surgery ??? Hysterectomy ??? Pro upper gi endoscopy, biopsy N/A 12/03/2015 EGD WITH BIOPSY performed by Ken Sanders MD at [facility] ENDOSCOPY No family history on file. Social [...] Social history: , no children. Lives in [place]. 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 Smoking: Active smoker, 2ppd Alcohol: Prior [...] complex vitamins (B COMPLEX-VITAMIN B12) tablet ??? plvyvaoqdkyc-vcyo-jmmlwcot (COMPLETE MULTIVITAMIN) Tab tablet 1 Tablet(s), PO, Once daily ??? calcium citrate-vitamin D (CITRACAL+D) 315-200 mg-unit per tablet 2 Tablet(s), PO, Twice daily ??? ergocalciferol (VITAMIN D) 50,000 unit capsule [id number], PO, TWICE a week ??? isosorbide mononitrate [...] this encounter Visit Diagnoses Diagnosis Atherosclerosis of osage coronary artery of osage heart without angina pectoris History of cigarette smoking documented in this encounter Care Teams Abalone Processor Relationship Specialty Start Date End Date Aman Lawrence APRN [address] [place] [address] PCP - General 06/16/10 06/27/18 documented as of this encounter
--- OUTSIDE RECORDS SUMMARY | 2024-08-07 14:14 | XMS_ITS | Encounter Summary ---
[place] [address] Care Team Providers Care Time Study Technician Name Role Phone Aman Lawrence APRN Primary Care Provider [phone] [phone] Encounter Details Date Type Department Care Team (Late st Contact Info) Description 12/03/2015 8:22 AM EDT Anesthesia Event [place] [address] Nilam Hi MD [facility] [place] [address] Francisco Javier Lord MD [facility] [place] [address] Anesthesia Record Procedure Summary Procedure Name Responsible [...] 0807; metacarpal vein right (top of hand); bpzf-pkl-kiqpuk catheter system; 22 gauge; distraction; 12/03/15; 0852 [...] Hi MD - 12/03/2015 9:18 AM EDT [facility] Department of Anesthesiology Post-procedure Note Patient: Jeannie Rico Procedure Summary Date Anesthesia Start Anesthesia Stop Room / Location 12/03/15 0822 0836 [facility] ENDO 7 / [facility] ENDOSCOPY Procedure Diagnosis Surgeon Responsible Provider EGD WITH BIOPSY (N/A Trunk) (? ulcer, Heartburn) Ken Sanders MD Chiang, Laura M, MD All Anesthesia Providers: Anesthesiologist: Nilam Hi MD RAILROAD CAR TRUCK BUILDER: Dinesh Babin CRNA Last (1hr) Vitals: BP Temp Pulse Resp SpO2 Patient Location: PACU/[facility] Level of Consciousness: Conscious but Sleepy Pain [...] GI ENDOSCOPY performed by DEE WRIGHT at [facility] ENDOSCOPY ??? Abdomen surgery ??? Hysterectomy History [...] risks discussed with patient. Plan discussed with RAILROAD CAR TRUCK BUILDER. PAT Staff Note documented in this encounter Miscellaneous Notes * Addendum Note - Nilam Hi MD - 12/05/2015 12:19 PM EDT Addendum created 12/05/15 1219 by Nilam Hi MD Modules edited: Notes Section Notes Section: File: [id number] documented in this encounter Plan of Treatment [...] mg documented in this encounter Care Teams Time Study Technician Relationship Specialty Start Date End Date Aman Lawrence APRN [address] [place] [address] PCP - General 06/16/10 06/27/18 documented as of this encounter
--- OUTSIDE RECORDS SUMMARY | 2024-08-07 14:14 | XMS_ITS | Encounter Summary ---
Author Organization [facility] Address [facility] [place] [address] Care Team Providers Care Sharepoint Consultant Name Role Phone Yisel Marroquin MD Primary Care Provider Unavail able Encounter Details Date Type Department Care Team (Late st Contact Info) Description 05/24/2016 Abstract [place] [facility] Conversion Results [address] [place] [address] Apd Conversion, Flowsheet Provider, Social History Tobacco [...] filedocumented in this encounter Care Teams Sharepoint Consultant Relationship Specialty Start Date End Date Yisel Marroquin MD PCP - General 11/13/18 03/05/19 documented as of this encounter
--- OUTSIDE RECORDS SUMMARY | 2024-08-07 14:14 | XMS_ITS | Encounter Summary ---
Author Organization [facility] Address [facility] [place] [address] Care Team Providers Care Oil Well Services Dispatcher Name Role Phone Aman Lawrence APRN Primary Care Provider [phone] [phone] Encounter Details Date Type Department Care Team (Late st Contact Info) Description 09/28/2016 - 09/28/2016 11:59 PM EST Hospital Encounter Radiology Library at [facility] [place] [phone] [facility] Disposition: Home Social History [...] vitamins (B COMPLEX-VITAMIN B12) tablet 09/23/2010 11/19/2016 pxzfrnknawiy-sdpl-gczemy ls (COMPLETE MULTIVITAMIN) Tab tablet 1 Tablet(s), PO, Once daily 09/23/2010 11/19/2016 calcium citrate-vitamin D (CITRACAL+D) 315-200 mg-unit per tablet 2 Tablet(s), PO, Twice daily 09/23/2010 11/19/2016 ergocalciferol (VITAMIN D) 50,000 unit capsule [id number], PO, TWICE a week 09/23/2010 11/19/2016 documented [...] Pelvis (09/28/2016 12:00 AM EST) Narrative ANGUS MÉNDEZ - 10/12/2016 1:44 PM EDT This exam is for storage only and is auto-finalizing. Dr Janie MCKENNA FILM LIBRARY ORD ERABLES [place], [place] documented in this encounter Visit Diagnoses Diagnosis Pain Generalized pain documented in this encounter Care Teams Oil Well Services Dispatcher Relationship Specialty Start Date End Date Aman Lawrence APRN [address] [place] [address] PCP - General 06/16/10 06/27/18 documented as of this encounter
--- OUTSIDE RECORDS SUMMARY | 2024-08-07 14:14 | XMS_ITS | Encounter Summary ---
Author Organization [facility] Address [facility] [place] [address] Care Team Providers Care Medical Oncologist Name Role Phone Yisel Marroquin MD Primary Care Provider Unavail able Encounter Details Date Type Department Care Team (Late st Contact Info) Description 05/01/2015 Abstract [place] Conversion Results [address] [place] [address] Apd Conversion, Flowsheet Provider, Social History Tobacco [...] filedocumented in this encounter Care Teams Medical Oncologist Relationship Specialty Start Date End Date Yisel Marroquin MD PCP - General 11/13/18 03/05/19 documented as of this encounter
--- OUTSIDE RECORDS SUMMARY | 2024-08-07 14:14 | XMS_ITS | Encounter Summary ---
Author Organization [facility] [place] [address] Care Team Providers Care Melter Operator Name Role Phone Aman Lawrence APRN Primary Care Provider [phone] [phone] Encounter Details Date Type Department Care Team (Late st Contact Info) Description 10/10/2015 Telephone [place] [address] Tamar Guerra, RD [facility] [place] [address] Social History Tobacco Use Types Packs/Day Years [...] mainly soft foods. Typical Day is: [employer] Instant Breakfast in the AM and PM, [...] on filedocumented in this encounter Care Teams Melter Operator Relationship Specialty Start Date End Date Aman Lawrence APRN [address] [place] [address] PCP - General 06/16/10 06/27/18 documented as of this encounter
--- OUTSIDE RECORDS SUMMARY | 2024-08-07 14:14 | XMS_ITS | Encounter Summary ---
Author Organization [facility] [place] [address] Care Team Providers Care Tower Technician Name Role Phone Yisel Marroquin MD Primary Care Provider Unavail able Encounter Details Date Type Department Care Team (Late st Contact Info) Description 12/11/2015 Orders Only Radiology and Cardiology Results [address] [place] [address] Apd Conversion, Results Provider, Social [...] Lab) [facility] CONVERSION LDL Cholesterol 35(Gluing Machine Offbearer al Lab) [facility] DAY CONVERSION HDL [...] on filedocumented in this encounter Care Teams Tower Technician Relationship Specialty Start Date End Date Yisel Marroquin MD PCP - General 11/13/18 03/05/19 documented as of this encounter
--- OUTSIDE RECORDS SUMMARY | 2024-08-07 14:14 | XMS_ITS | Encounter Summary ---
Author Organization [facility] Address [facility] [place] [address] Care Team Providers Care Research And Insights Executive Name Role Phone Aman Lawrence APRN Primary Care Provider [phone] [phone] Encounter Details Date Type Department Care Team (Latest Contact Info) Description 12/03/2015 7:35 AM EDT - 12/03/2015 9:01 AM EDT Hospital Encounter [place] [address] Ken Sanders MD [facility] [place] [address] Discharge Disposition: Home Social History Tobacco Use [...] better as expected. Tuesday-Tuesday Same Day Endo [phone] 7a-8p Otherwise contact [phone] and ask to speak to the entry tech power generation turbine room operator Follow-up care is a ramírez part of your treatment and safety. Be sure to make and go to all appointments, and call your doctor if you are having problems. Instructions have been reviewed and patient expresses understanding * Attachments The following attachments cannot be sent through Care Everywhere. * EGD (UPPER ENDOSCOPY) : POST-OP (URDU) documented in this encounter Medications at Time [...] vitamins (B COMPLEX-VITAMIN B12) tablet 09/23/2010 11/19/2016 kauntlsjjfwh-ffbv-hgyme als (COMPLETE MULTIVITAMIN) Tab tablet 1 Tablet(s), PO, Once daily 09/23/2010 11/19/2016 calcium citrate-vitamin D (CITRACAL+D) 315-200 mg-unit per tablet 2 Tablet(s), PO, Twice daily 09/23/2010 11/19/2016 ergocalciferol (VITAMIN D) 50,000 unit capsule [id number], PO, TWICE a week 09/23/2010 11/19/2016 documented [...] Report (12/03/2015 8:39 AM EDT) Final Diagnosis [id number] ? Location: 4T; EA11; A The signing [...] ng: (T1) ??sns 12/05/2015 2:25 PM EDT [facility] GI Biopsy 12/03/2015 8:39 AM EDT 12/03/2015 8:39 AM EDT GI Biopsy 12/03/2015 8:39 AM EDT 12/03/2015 8:39 AM EDT Ken Sanders MD PATHOLOGY/CYTOLOGY O ALYSON Performing Organization Address [facility] [place] [address] * Specimen to Pathology (surgical or derm) (12/03/2015 8:39 AM EDT) AP Specimen 12/03/2015 8:39 AM EDT 12/03/2015 8:39 AM EDT Narrative [facility] - 12/03/2015 8:39 AM EDT Specimen requisition ordered. ??Separate Pathology report to follow Ken Sanders MD PATHOLOGY/CYTOLOGY Kate SHIELDS Performing Organization Address [facility] [place] [address] * Specimen to Pathology (surgical or derm) (12/03/2015 8:39 AM EDT) AP Specimen 12/03/2015 8:39 AM EDT 12/03/2015 8:39 AM EDT Narrative [facility] - 12/03/2015 8:39 AM EDT Specimen requisition ordered. ??Separate Pathology report to follow Ken Sanders MD PATHOLOGY/CYTOLOGY Kate SHIELDS Performing Organization Address [facility] [place] [address] * UPPER GI ENDOSCOPY (12/03/2015 8:21 AM EDT) UPPER GI ENDOSCOPY [facility] Endoscopy Patient Name: Jeannie Trisha ? Procedure Date: 12/03/2015 8:21 AM ? Date of : 1960 ? Age: 55 ? Order #: [id number] ? Procedure: ? Upper GI endoscopy Indications: [...] Babin) documented in this encounter Care Teams Research And Insights Executive Relationship Specialty Start Date End Date Aman Lawrence APRN [address] [place] [address] PCP - General 06/16/10 06/27/18 documented as of this encounter
--- OUTSIDE RECORDS SUMMARY | 2024-08-07 14:14 | XMS_ITS | Encounter Summary ---
[facility] [place] [address] Care Team Providers Care Director Of Hospitality Name Role Phone Yisel Marroquin MD Primary Care Provider Unavail able Encounter Details Date Type Department Care Team (Late st Contact Info) Description 10/12/2016 Abstract [place] Rice Conversion Results [address] [place] [address] Apd Conversion, Flowsheet Provider, Social History Tobacco [...] in this encounter Care Teams Director Of Hospitality Relationship Specialty Start Date End Date Yisel Marroquin MD PCP - General 11/13/18 03/05/19 documented as of this encounter
--- OUTSIDE RECORDS SUMMARY | 2024-08-07 14:14 | XMS_ITS | Encounter Summary ---
[place] [address] Care Team Providers Care Clinical Support Specialist Name Role Phone Yisel Marroquin MD Primary Care Provider Unavail able Encounter Details Date Type Department Care Team (Late st Contact Info) Description 10/29/2015 Orders Only Radiology and Cardiology Results [address] [place] [address] Apd Conversion, Results Provider, Social [...] filedocumented in this encounter Care Teams Clinical Support Specialist Relationship Specialty Start Date End Date Yisel Marroquin MD PCP - General 11/13/18 03/05/19 documented as of this encounter
--- OUTSIDE RECORDS SUMMARY | 2024-08-07 14:14 | XMS_ITS | Encounter Summary ---
Author [place] [address] Care Team Providers Care Table Maker Name Role Phone Aman Lawrence APRN Primary Care Provider +1 [phone] Encounter Details Date Type Department Care Team (Latest Contact Info) Description 12/09/2016 Multidisciplinary Ca re Committee [place] [address] Sidra Del Toro APRN Social History Tobacco [...] Evaluation by a member of the [facility] Bariatric [facility] Program previously: Vivi Del Toro/ Jing Darden Case presentation by: Dr Wright Staff present at today's meeting: Kasia Wright MD, Implant Polisher, Skinny Gomez MD, Meena Pena MD, Tamar [...] GI ENDOSCOPY performed by KASIA WRIGHT at [facility] ENDOSCOPY Plan of care: no further testing indicated, pain is attributed to being musculoskeletal in nature. documented in this encounter Plan of Treatment Not on file documented as of this encounter Visit Diagnoses Not on filedocumented in this encounter Care Teams Table Maker Relationship Specialty Start Date End Date Aman Lawrence APRN [address] [place] [address] PCP - General 06/16/10 06/27/18 documented as of this encounter
--- OUTSIDE RECORDS SUMMARY | 2024-08-07 14:14 | XMS_ITS | Encounter Summary ---
Author Organization [facility] [place] [address] Care Team Providers Care Hand Embroiderer Name Role Phone Aman Lawrence APRN Primary Care Provider [phone] [phone] Encounter Details Date Type Department Care Team (Late st Contact Info) Description 12/03/2015 9:00 AM EDT - 12/03/2015 9:30 AM EDT Surgery [place] [address] Ken Sanders MD [facility] [place] [address] EGD WITH BIOPSY (WRVU 2.39) Social History [...] better as expected. Tuesday-Tuesday Same Day Endo [phone] 7a-8p Otherwise contact [phone] and ask to speak to the battery charger station repairer Follow-up care is a ramírez part of your treatment and safety. Be sure to make and go to all appointments, and call your doctor if you are having problems. Instructions have been reviewed and patient expresses understanding * Attachments The following attachments cannot be sent through Care Everywhere. * EGD (UPPER ENDOSCOPY) : POST-OP (PALESTINIAN) documented in this encounter Medications at Time [...] vitamins (B COMPLEX-VITAMIN B12) tablet 09/23/2010 11/19/2016 fjwnizwznyxo-tobg-iugdu als (COMPLETE MULTIVITAMIN) Tab tablet 1 Tablet(s), PO, Once daily 09/23/2010 11/19/2016 calcium citrate-vitamin D (CITRACAL+D) 315-200 mg-unit per tablet 2 Tablet(s), PO, Twice daily 09/23/2010 11/19/2016 ergocalciferol (VITAMIN D) 50,000 unit capsule [id number], PO, TWICE a week 09/23/2010 11/19/2016 documented [...] Report (12/03/2015 8:39 AM EDT) Final Diagnosis [id number] ? Location: 4T; EA11; A The signing [...] ng: (T1) ??sns 12/05/2015 2:25 PM EDT [facility] GI Biopsy 12/03/2015 8:39 AM EDT 12/03/2015 8:39 AM EDT GI Biopsy 12/03/2015 8:39 AM EDT 12/03/2015 8:39 AM EDT Ken Sanders MD PATHOLOGY/CYTOLOGY O ALYSON Performing Organization Address [facility] [place] [address] * Specimen to Pathology (surgical or derm) (12/03/2015 8:39 AM EDT) AP Specimen 12/03/2015 8:39 AM EDT 12/03/2015 8:39 AM EDT Narrative [facility] - 12/03/2015 8:39 AM EDT Specimen requisition ordered. ??Separate Pathology report to follow Ken Sanders MD PATHOLOGY/CYTOLOGY Kate SHIELDS Performing Organization Address [facility] [place] [address] * Specimen to Pathology (surgical or derm) (12/03/2015 8:39 AM EDT) AP Specimen 12/03/2015 8:39 AM EDT 12/03/2015 8:39 AM EDT Narrative [facility] - 12/03/2015 8:39 AM EDT Specimen requisition ordered. ??Separate Pathology report to follow Ken Sanders MD PATHOLOGY/CYTOLOGY Kate SHIELDS Performing Organization Address [facility] [place] [address] * UPPER GI ENDOSCOPY (12/03/2015 8:21 AM EDT) UPPER GI ENDOSCOPY [facility] Endoscopy Patient Name: Jeannie Trisha ? Procedure Date: 12/03/2015 8:21 AM ? Date of : 1960 ? Age: 55 ? Order #: [id number] ? Procedure: ? Upper GI endoscopy Indications: [...] Babin) documented in this encounter Care Teams Hand Embroiderer Relationship Specialty Start Date End Date Aman Lawrence APRN [address] [address] PCP - General 06/16/10 06/27/18 documented as of this encounter
--- OUTSIDE RECORDS SUMMARY | 2024-08-07 14:14 | XMS_ITS | Encounter Summary ---
Author Organization [facility] Address [facility] [place] [address] Care Team Providers Care Government Affairs Fellow Name Role Phone Yisel Marroquin MD Primary Care Provider Unavail able Encounter Details Date Type Department Care Team (Late st Contact Info) Description 01/13/2016 Abstract [place] Conversion Results [address] [place] [address] Apd Conversion, Flowsheet Provider, Social History Tobacco [...] filedocumented in this encounter Care Teams Government Affairs Fellow Relationship Specialty Start Date End Date Yisel Marroquin MD PCP - General 11/13/18 03/05/19 documented as of this encounter
--- OUTSIDE RECORDS SUMMARY | 2024-08-07 14:14 | XMS_ITS | Encounter Summary ---
[place] [address] Care Team Providers Care Workcell Operator Name Role Phone Yisel Marroquin MD Primary Care Provider Unavail able Encounter Details Date Type Department Care Team (Late st Contact Info) Description 05/14/2015 Orders Only Radiology and Cardiology Results [address] [place] [address] Apd Conversion, Results Provider, Social [...] on filedocumented in this encounter Care Teams Workcell Operator Relationship Specialty Start Date End Date Yisel Marroquin MD PCP - General 11/13/18 03/05/19 documented as of this encounter
--- OUTSIDE RECORDS SUMMARY | 2024-08-07 14:14 | XMS_ITS | Encounter Summary ---
[place] [address] Care Team Providers Care German Professor Name Role Phone Yisel Marroquin MD Primary Care Provider Unavail able Encounter Details Date Type Department Care Team (Late st Contact Info) Description 05/14/2015 Orders Only Radiology and Cardiology Results [address] [place] [address] Apd Conversion, Results Provider, Social [...] Lab) [facility] CONVERSION LDL Cholesterol 46(Stringed Instrument Tuner al Lab) [facility] FLORES DAY CONVERSION HDL Cholesterol 40(Stringed Instrument Tuner al Lab) 40 - 60 KOR[facility] FLORES DAY CONVERSION Triglyceride 174(ExtH) 30 - 150 KORI P NATALEE DAY CONVERSION Cholesterol, Total 121(Exter nal Lab) 50 - 200 [facility] DAY CONVERSION 05/14/2015 Results Provider Apd Conversion MD JASON ESTRELLA ORDERABLES [facility] DAY CONVERSION documented in this encounter Visit Diagnoses Not on filedocumented in this encounter Care Teams German Professor Relationship Specialty Start Date End Date Yisel Marroquin MD PCP - General 11/13/18 03/05/19 documented as of this encounter
--- OUTSIDE RECORDS SUMMARY | 2024-08-07 14:14 | XMS_ITS | Encounter Summary ---
[place] [address] Care Team Providers Care Hospital Security Officer Name Role Phone Aman Lawrence APRN Primary Care Provider [phone] [phone] Reason for Referral * Consultation (Routine) - Closed Specialty Diagnoses / Procedures Referred By Vanita dimas Referred To Contact Gastroenterology Diagnoses Gastroesophageal reflux disease, esophagitis presence not specified Status post bariatric surgery Intestinal malabsorption, unspecified type Sidra Del Toro APRN [facility] [place] [address] [facility] Endoscopy [address] [place] [address] Referral ID Status Reason Start Date Expiration Date V isits Requested Visits Authorized [id number] Closed Test Only 10/23/2015 10/22/2016 1 1 Reason for Visit * Reason Comments Follow-up Bariatric Surgery Pr ogram follow up Encounter Details Date Type Department Care Team (Latest Contact Info) Description 10/23/2015 10:30 AM EDT Office [place] [address] Sidra Del Toro APRN Gastroesophageal [...] 11:14 AM EDT BSP Admin coordinator Rhonda: [phone] Dietitian: [phone] Surgeons/ nurse practitioner: [phone] Nurse line: [phone] Your excess body weight lost: 36% Continue to with the hard work. Testin. Labwork: Today. Go to [facility], which is 1 flight below [...] after surgery, and yearly thereafter. Please call [phone] if you do not receive an appointment by 3-4 weeks prior to the expected visit. Medications: 1. Ask Aman about the plavix medication- when to stop before to the endoscopy 2. recommendations pending labwork. Referrals: Upper endoscopy. The date of the study will like change Date of Procedure: 12/03/15 Arrival Time: 7:30 AM Location: [facility], Endoscopy Center - please park in [...] cabs or buses. We do request your regional company truck driver stay at [facility] while you are here foryour procedure. If you have read the enclosed information thoroughly and still have questions about what you have read, please call [phone] between the hours of 7:00am- 7:00pm, Tuesday-Tuesday and a nurse will assist you. If you have an urgent matter after hours, please call [phone] and ask to speak to the Gastroenterology Fellow ship's electronic warfare officer. If you need to reschedule your procedure please call: [phone]. The preparation for this procedure is no [...] of every month from 1-2 PM at [facility]- no registration required Internet resources: www.Anyvite www.Rapid Pathogen Screening www.Melon Power www.Loterity (cat Alonzo) https://www.facebook.com/[facility]MAN[facility]ariatricSurgery Bariatric surgery apps- [facility] [employer]: - Recipes for [...] 1/2 cup cottage cheese w/ peaches or Indonesian yogurt Lunch Slimfast or Ensure SF PM Snack 1/2 cup cottage cheese and fruit Dinner CIB or Indonesian yogurt or HB egg HS Snack She [...] of contrast was clearly seen within the hoonah fundus indicating a leak. The site of [...] stable, on clopidogrel A. 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 Patient concerns at today's visit: she Would [...] blood in stool [] chronic diarrhea/ constipation BILINGUAL LEGAL ASSISTANT: [] LMP: [] control [] menorrhagia [+] surgical menopause Heme/Lymph: [] excessive bruising [] blood donor in past year Psychiatric [] mental health concerns Other: Exercise/activity level: as per RD note Employment/social: disabled/ Health-related habits: Tobacco: 1 PPD Alcohol: none Dietary history: See dietitian note. Objective: General: 55 y.o. year-old female looks well, appears upbeat. She is accompanied to today's visit byher transfer table operator. Exam room with nauseating odor of nicotine Heart: RRR Lungs: CTA without wheezing Abdomen: soft, non-tender. Multiple upper abdominal scars, including upper midline, right subcostaland chevron scars well-healed, without evidence of hernia. Extremities: no edema Vital signs:Blood pressure 139/71, pulse 55, temperature 36.8 ??C (98.2 ??F), resp. rate 19, kpqqav624.956 kg (238 lb), SpO2 98 %. Body [...] reviewed in detail with Jeannie and her case picker. ?? She is unable to stay to have labwork done today, will be done at [facility]. Primary care office called to obtain copy [...] place prior to consideration of surgery, given supervisor intermediates risks associated with tobacco use including lifetime [...] [K90.9] documented in this encounter Care Teams Hospital Security Officer Relationship Specialty Start Date End Date Aman Lawrence APRN [address] [place] [address] PCP - General 06/16/10 06/27/18 documented as of this encounter
--- OUTSIDE RECORDS SUMMARY | 2024-08-07 14:14 | XMS_ITS | Encounter Summary ---
Author Organization [facility] Address [facility] [place] [address] Care Team Providers Care Hr Associate Name Role Phone Yisel Marroquin MD Primary Care Provider Unavail able Encounter Details Date Type Department Care Team (Late st Contact Info) Description 09/29/2015 Abstract [place] Conversion Results [address] [place] [address] Apd Conversion, Flowsheet Provider, Social History Tobacco [...] on filedocumented in this encounter Care Teams Hr Associate Relationship Specialty Start Date End Date Yisel Marroquin MD PCP - General 11/13/18 03/05/19 documented as of this encounter
--- OUTSIDE RECORDS SUMMARY | 2024-08-07 14:14 | XMS_ITS | Encounter Summary ---
Author Organization [facility] Address [facility] [place] [address] Care Team Providers Care Wireless Sales Manager Name Role Phone Yisel Marroquin MD Primary Care Provider Unavail able Encounter Details Date Type Department Care Team (Late st Contact Info) Description 01/28/2015 Abstract [place] Conversion Results [address] [place] [address] Apd Conversion, Flowsheet Provider, Social History Tobacco [...] on filedocumented in this encounter Care Teams Wireless Sales Manager Relationship Specialty Start Date End Date Yisel Marroquin MD PCP - General 11/13/18 03/05/19 documented as of this encounter
--- OUTSIDE RECORDS SUMMARY | 2024-08-07 14:14 | XMS_ITS | Encounter Summary ---
Author Organization [facility] [place] [address] Care Team Providers Care Director Pediatric Name Role Phone Yisel Marroquin MD Primary Care Provider Unavail able Encounter Details Date Type Department Care Team (Late st Contact Info) Description 08/04/2015 Abstract [place] Conversion Results [address] [place] [address] Apd Conversion, Flowsheet Provider, Social History Tobacco [...] filedocumented in this encounter Care Teams Director Pediatric Relationship Specialty Start Date End Date Yisel Marroquin MD PCP - General 11/13/18 03/05/19 documented as of this encounter
--- OUTSIDE RECORDS SUMMARY | 2024-08-07 14:14 | XMS_ITS | Encounter Summary ---
Author Organization [facility] [place] [address] Care Team Providers Care Attendant Campground Name Role Phone Aman Lawrence APRN Primary Care Provider [phone] [phone] Encounter Details Date Type Department Care Team (Late st Contact Info) Description 10/02/2015 Telephone [place] [address] Tamar Guerra, RD [facility] [place] [address] Social History Tobacco Use Types Packs/Day Years [...] oz. Fluid daily. 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 Plan: Rec. Continue with NSA CIB 3 x daily, providing ~40 g protein. Suggested d/c Ensure and try Atkins Shakes, Low CHO Slim Fast or Boost Glucose Control (all available at [employer]) to aid in meeting protein needs. Continue to try solid food as tolerated: Niuean Yogurt, cottage cheese, apple sauce, hard boiled eggs, toast, etc. Goal of 48+ oz. Water daily. Will f/u with program BUILDING CONSTRUCTION PROFESSOR for next steps. documented in this encounter Plan of Treatment Not on file documented as of this encounter Visit Diagnoses Not on filedocumented in this encounter Care Teams Attendant Campground Relationship Specialty Start Date End Date Aman Lawrence [place] [place] [address] PCP - General 06/16/10 06/27/18 documented as of this encounter
--- OUTSIDE RECORDS SUMMARY | 2024-08-07 14:14 | XMS_ITS | Encounter Summary ---
[place] [address] Care Team Providers Care Automotive Glass Installer Name Role Phone Yisel Marroquin MD Primary Care Provider Unavail able Encounter Details Date Type Department Care Team (Late st Contact Info) Description 04/28/2016 Orders Only Radiology and Cardiology Results [address] [place] [address] Apd Conversion, Results Provider, Social [...] filedocumented in this encounter Care Teams Automotive Glass Installer Relationship Specialty Start Date End Date Yisel Marroquin MD PCP - General 11/13/18 03/05/19 documented as of this encounter
--- OUTSIDE RECORDS SUMMARY | 2024-08-07 14:14 | XMS_ITS | Encounter Summary ---
Author Organization [facility] Address [address] [facility] [place] [address] Care Team Providers Care Info Analyst Name Role Phone Yisel Marroquin MD Primary Care Provider Unavail able Encounter Details Date Type Department Care Team (Late st Contact Info) Description 01/25/2015 Interpretation Only Radiology [address] [facility] [place] [address] Unknown None Social History Tobacco Use Types [...] 2:54 PM EDT APD Historical Result Principal Director Of Head Start: ??ISAK ??ESCHBACH RIGHT FOOT: INDICATION: ??Injury. COMPARISON: ??Right ankle, January 25, 2015. FINDINGS: Three views of the right foot show no fracture, dislocation, joint effusion, or foreign body. Isak Benavides DO CHRISTINA/cornelio [id number] CC: Procedure Note Unknown - 01/22/2019 APD Historical Result Principal Director Of Head Start: ISAK BENAVIDES RIGHT FOOT: INDICATION: Injury. COMPARISON: Right ankle, January 25, 2015. FINDINGS: Three views of the right foot show no fracture, dislocation, jointeffusion, or foreign body. Isak Diazhbzari CHRISTINA/cornelio [id number] CC: Unknown IMG DX ORDERABLES documented in this encounter Visit Diagnoses Not on filedocumented in this encounter Care Teams Info Analyst Relationship Specialty Start Date End Date Yisel Marroquin MD PCP - General 11/13/18 03/05/19 documented as of this encounter
--- OUTSIDE RECORDS SUMMARY | 2024-08-07 14:14 | XMS_ITS | Encounter Summary ---
[place] [address] Care Team Providers Care Fur Trimming Machine Operator Name Role Phone Yisel Marroquin MD Primary Care Provider Unavail able Encounter Details Date Type Department Care Team (Late st Contact Info) Description 05/14/2015 Orders Only Radiology and Cardiology Results [address] [place] [address] Apd Conversion, Results Provider, Social [...] 116.9 [facility] FL[facility] DAY CONVERSION Hemoglobin A1c 6.0(Quality Control al Lab) 4.5 - 6.2 KORI FLORES DAY CONVERSION 05/14/2015 Results Provider Apd Conversion MD JASON ESTRELLA ORDERABLES [facility] DAY CONVERSION documented in this encounter Visit Diagnoses Not on filedocumented in this encounter Care Teams Fur Trimming Machine Operator Relationship Specialty Start Date End Date Yisel Marroquin MD PCP - General 11/13/18 03/05/19 documented as of this encounter
--- OUTSIDE RECORDS SUMMARY | 2024-08-07 14:14 | XMS_ITS | Encounter Summary ---
Author Organization [facility] Address [facility] [place] [address] Care Team Providers Care Profiling Machine Set Up Operator Tool Name Role Phone Yisel Marroquin MD Primary Care Provider Unavail able Encounter Details Date Type Department Care Team (Late st Contact Info) Description 10/29/2015 Interpretation Only Radiology [address] [facility] [place] [address] Unknown None Social History Tobacco Use Types [...] 11:36 AM EDT APD Historical Result Principal Quenching Machine Operator: ??MIRIAM Santana?WESTON DXA SCAN BONE DENSITY: INDICATION: [...] in 1 year. Miriam Hardy MD MR/mn [id number] Procedure Note Unknown - 01/22/2019 APD Historical Result Principal Quenching Machine Operator: MIRIAM HARDY DXA SCAN BONE DENSITY: INDICATION: [...] in 1 year. Miriam Hardy MD /cornelio [id number] Unknown IMG DEXA ORDERABLES documented in this encounter Visit Diagnoses Not on filedocumented in this encounter Care Teams Profiling Machine Set Up Operator Tool Relationship Specialty Start Date End Date Yisel Marroquin MD PCP - General 11/13/18 03/05/19 documented as of this encounter
--- OUTSIDE RECORDS SUMMARY | 2024-08-07 14:14 | XMS_ITS | Encounter Summary ---
Author Organization [facility] Address [facility] [place] [address] Care Team Providers Care Mechanical Oxidizer Name Role Phone Yisel Marroquin MD Primary Care Provider Unavail able Encounter Details Date Type Department Care Team (Late st Contact Info) Description 11/13/2015 Abstract [place] Rice Conversion Results [address] [place] [address] Apd Conversion, Flowsheet Provider, Social History Tobacco [...] filedocumented in this encounter Care Teams Mechanical Oxidizer Relationship Specialty Start Date End Date Yisel Marroquin MD PCP - General 11/13/18 03/05/19 documented as of this encounter
--- OUTSIDE RECORDS SUMMARY | 2024-08-07 14:14 | XMS_ITS | Encounter Summary ---
Author Organization [facility] [place] [address] Care Team Providers Care Disposition Clerk Name Role Phone Yisel Marroquin MD Primary Care Provider Unavail able Encounter Details Date Type Department Care Team (Late st Contact Info) Description 09/20/2016 Orders Only Radiology and Cardiology Results [address] [place] [address] Apd Conversion, Results Provider, Social [...] 116.9 KORI FLORES DAY CONVERSION Hemoglobin A1c 5.8([employer] [facility]) 4.5 - 6.2 FLORES DAY CONVERSION 09/20/2016 Results Provider Apd Conversion MD JASON ESTRELLA ORDERABLES KORI FLORES DAY CONVERSION documented in this encounter Visit Diagnoses Not on filedocumented in this encounter Care Teams Disposition Clerk Relationship Specialty Start Date End Date Yisel Marroquin MD PCP - General 11/13/18 03/05/19 documented as of this encounter
--- OUTSIDE RECORDS SUMMARY | 2024-08-07 14:14 | XMS_ITS | Encounter Summary ---
Author Organization [facility] Address [facility] [place] [address] Care Team Providers Care Molder Pipe Covering Name Role Phone Aman Lawrence APRN Primary Care Provider +1 -[phone] Reason for Visit * Reason Comments Chest Pain Coronary Artery Disease Encounter Details Date Type Department Care Team (Late st Contact Info) Description 05/10/2016 8:00 AM EDT Office Visit Cardiology at [address] [address] Freddy Mejias MD [facility] [place] [address] Chest pain, unspecified type Social History Tobacco [...] want to know if it is working. [phone]. I will see you back in 1 [...] List Diagnosis ??? Osteoporosis D[facility]A done at [facility] on [...] GI ENDOSCOPY performed by DEE WRIGHT at [facility] ??? Abdomen surgery ??? Hysterectomy ??? Pro upper gi endoscopy, biopsy N/A 12/03/2015 EGD WITH BIOPSY performed by Ken Sanders MD at [facility] No family history on file. [...] Social history: , no children. Lives in [place]. 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 pnvadxbekdni-xktu-bbgjtxfx (COMPLETE MULTIVITAMIN) Tab tablet 1 Tablet(s), PO, Once daily ??? calcium citrate-vitamin D (CITRACAL+D) 315-200 mg-unit per tablet 2 Tablet(s), PO, Twice daily ??? ergocalciferol (VITAMIN D) 50,000 unit capsule [id number], PO, TWICE a week No current facility-administered [...] 8:52 AM EDT) Neutrophil % 66.6 % [facility] Neutrophil Absolute 7.47(H) 1.70 - 6.10 x10(3)/mc L [facility] Lymph % 25.1 % [facility] Lymphocytes Abs 2.8 0.9 - 3.2 x10(3)/mc L [facility] Monocyte % 6.2 % [facility] Monocyte Abs 0.7 0.3 - 0.9 x10(3)/mc L [facility] Eos % 1.1 % [facility] Eosinophils Abs 0.1 0.0 - 0.4 x10(3)/mc L [facility] Basophil % 0.6 % [facility] Baso Absolute 0.1 0.0 - 0.1 x10(3)/mc L [facility] Immature Gran % 0.40 % [facility] Comment: Immature granulocytes(IG's)percentage and absolute count will include metamyelocytes, myelocytes, and promyelocytes. Blood smears from CBCs yielding IG's will be scanned manually for concordance. If this scan disagrees with the automated IG or if promyelocytes are noted, a manual differential will be performed. Immature Gran Absolute 0.04 0.00 - 0.04 x10(3)/mc L [facility] Blood specimen (specimen) 05/10/2016 8:52 AM EDT 05/10/2016 9:15 AM EDT Narrative Resulting Agency Comment Spec In Lab Freddy Mejias MD HEMATOLOGY ORDERABLE S [facility] [place] [address] * (ABNORMAL) Hemogram (05/10/2016 8:52 AM EDT) White Blood Cell 11.2(H) 4.0 - 9.5 x10(3)/[facility] Red Blood Cell 4.44 4.00 - 5.21 x10(6)/mc L [facility] Hemoglobin 14.0 11.7 - 15.5 gm/dL [facility] Hematocrit 43.0 35.7 - 45.8 % [facility] Mean Cell Volume 96.8(H) 82.6 - 94.[address] [facility] Mean Cell Hemoglobin 31.5 27.1 - 32.[address] [facility] Mean Cell Hemoglobin Concentration 32.6 31.7 - 35.0 gm/dL [facility] Platelet 232 145 - 357 x10(3)/mc L [facility] RDW Standard Deviation 46.5(H) 37.0 - 46.0 [facility] RDW coefficient of variation 13.0 11.5 - 14.1 % [facility] Mean Platelet Volume 10.2 7.6 - 12.9 [facility] NRBC% auto 0.0 % [facility] NRBC Absolute 0.000 0.000 - 0.000 x10(3)/ L [facility] Blood specimen (specimen) 05/10/2016 8:52 AM EDT 05/10/2016 9:15 AM EDT Narrative Resulting Agency Comment Spec In Lab Freddy Mejias MD HEMATOLOGY ORDERABLE S [facility] [place] [address] * EKG 12 Lead (05/10/2016 7:53 AM EDT) Ventricular rate 50 BPM MUSE SYSTEM Atrial Rate 50 BPM MUSE SYSTEM P-R Interval 150 ms MUSE SYSTEM QRS Duration 86 ms MUSE SYSTEM Q-T Interval 438 ms MUSE SYSTEM QTC Calculated (Bezet) 399 ms MUSE SYSTEM Calculated P [place] 55 degrees MUSE SYSTEM Calculated R [place] 61 degrees MUSE SYSTEM Calculated T [place] 36 degrees MUSE SYSTEM INTERPRETATION Sinus bradycardia Low voltage QRS Borderline ECG When compared with ECG of 10-MAY-2013 08:23, Nonspecific T wave abnormality no longer evident in Anterolateral leads Confirmed by MD ASPEN, EDWARD ([id number]) on 05/10/2016 12:03:03 PM MUSE SYSTEM 05/10/2016 7:53 AM EDT 05/10/2016 12:03 PM EDT Freddy Mejias MD ECG ORDERABLES Performing Organization Address [facility] Co de Phone Number MUSE SYSTEM * Scan Doc: Lab (05/03/2016) Historical Provider MEDIA MGR SCAN EX T ORDR/RSLT documented in this encounter Visit Diagnoses Diagnosis Chest pain, unspecified type documented in this encounter Care Teams Molder Pipe Covering Relationship Specialty Start Date End Date Aman Lawrence APRN [address] [place] [address] PCP - General 06/16/10 06/27/18 documented as of this encounter
--- OUTSIDE RECORDS SUMMARY | 2024-08-07 14:14 | XMS_ITS | Encounter Summary ---
Author Organization [facility] Address One [facility] [place] [address] Care Team Providers Care Seniour Insight Manager Name Role Phone Yisel Marroquin MD Primary Care Provider Unavail able Encounter Details Date Type Department Care Team (Late st Contact Info) Description 09/28/2016 Interpretation Only Radiology [address] [facility] [place] [address] Unknown None Social History Tobacco Use Types [...] 9:37 AM EST APD Historical Result Principal Boilermaking Supervisor: ??JENNY ??SYEDA STACK: INDICATION: ??The patient has [...] No renal calculi identified. Jenny Landa MD [facility]/rr [id number] Procedure Note Unknown - 01/22/2019 APD Historical Result Principal Boilermaking Supervisor: JENNY LANDA KUB: INDICATION: The patient has [...] No renal calculi identified. Jenny Landa MD [facility]/ [id number] Unknown IMG DX ORDERABLES documented in this encounter Visit Diagnoses Not on filedocumented in this encounter Care Teams Seniour Insight Manager Relationship Specialty Start Date End Date Yisel Marroquin MD PCP - General 11/13/18 03/05/19 documented as of this encounter
--- OUTSIDE RECORDS SUMMARY | 2024-08-07 14:14 | XMS_ITS | Encounter Summary ---
[place] [address] Care Team Providers Care Breaker Hand Name Role Phone Aman Perla APRN Primary Care Provider +1 -[phone] Encounter Details Date Type Department Care Team (Latest Contact Info) Description 11/20/2015 Multidisciplinary Ca re Committee [place] [address] Sidra Del Toro APRN Social History Tobacco [...] no Evaluation by a member of the [facility] Bariatric Surgery Program previously: + Case presentation by: Dr Williamson Staff present at today's meeting: Dee Wright MD, Producer Assistant, Skinny Gomez MD, Meena Pena MD, Rajendra [...] GI ENDOSCOPY performed by DEE WRIGHT at [facility] ??? Abdomen surgery ??? Hysterectomy Plan of care: Smoking cessation, EGD on 12/02, may be candidate for apollo overstitch documented in this encounter Plan of Treatment Not on file documented as of this encounter Visit Diagnoses Not on filedocumented in this encounter Care Teams Breaker Hand Relationship Specialty Start Date End Date Aman Per[place] [place] [address] PCP - General 06/16/10 06/27/18 documented as of this encounter
--- OUTSIDE RECORDS SUMMARY | 2024-08-07 14:14 | XMS_ITS | Encounter Summary ---
Author Organization [facility] Address [facility] [place] [address] Care Team Providers Care Concierge Manager Name Role Phone Aman Lawrence APRN Primary Care Provider +1 -[phone] Encounter Details Date Type Department Care Team (Late st Contact Info) Description 05/19/2016 Telephone Cardiology at [address] [address] Freddy Mejias MD [facility] [place] [address] Social History Tobacco Use Types Packs/Day Years [...] on filedocumented in this encounter Care Teams Concierge Manager Relationship Specialty Start Date End Date Aman Lawrence APRN [address] [place] [address] PCP - General 06/16/10 06/27/18 documented as of this encounter
--- OUTSIDE RECORDS SUMMARY | 2024-08-07 14:14 | XMS_ITS | Encounter Summary ---
[place] [address] Care Team Providers Care Market Risk Specialist Name Role Phone Aman Lawrence APRN Primary Care Provider +1 -[phone] Reason for Visit * Reason Onset Date Comments Follow-up 12/03/2016 Encounter Details Date Type Department Care Team (Late st Contact Info) Description 12/03/2016 Telephone [place] [address] Sidra Del Toro APRN Follow-up Social History Tobacco Use Types Packs/Day [...] filedocumented in this encounter Care Teams Market Risk Specialist Relationship Specialty Start Date End Date Aman Lawrence APRN [address] [place] [address] PCP - General 06/16/10 06/27/18 documented as of this encounter
--- OUTSIDE RECORDS SUMMARY | 2024-08-07 14:14 | XMS_ITS | Encounter Summary ---
Author Organization [facility] Address One [facility] [place] [address] Care Team Providers Care Medical Center Director Name Role Phone Yisel Marroquin MD Primary Care Provider Unavail able Encounter Details Date Type Department Care Team (Late st Contact Info) Description 09/28/2016 Interpretation Only Radiology 1 [facility] [place] [address] Unknown None Social History Tobacco Use Types [...] 9:37 AM EST APD Historical Result Principal Quick Technician: ??JENNY ??SYEDA CT ABDOMEN AND PELVIS WITHOUT [...] on this unenhanced CT. Jenny Landa MD [facility]/ [id number] Procedure Note Unknown - 01/22/2019 APD Historical Result Principal Quick Technician: JENNY LANDA CT ABDOMEN AND PELVIS WITHOUT [...] this unenhanced CT. Jenny Vijay Landa MD [facility]/ [id number] Unknown IMG CT ORDERABLES documented in this encounter Visit Diagnoses Not on filedocumented in this encounter Care Teams Medical Center Director Relationship Specialty Start Date End Date Yisel Marroquin MD PCP - General 11/13/18 03/05/19 documented as of this encounter
--- OUTSIDE RECORDS SUMMARY | 2024-08-07 14:15 | XMS_ITS | Encounter Summary ---
Author Organization [facility] Address [facility] [place] [address] Care Team Providers Care Belt Operator Name Role Phone Aman Lawrence APRN Primary Care Provider +1 -[phone] Reason for Visit * Reason Comments Coronary Artery Disease Encounter Details Date Type Department Care Team (Late st Contact Info) Description 01/07/2014 7:40 AM EDT Follow-Up Cardiology at [address] [address] Freddy Mejias MD [facility] [place] [address] CAD (coronary artery disease) (Primary Dx); Smoking [...] GI ENDOSCOPY performed by DEE WRIGHT at [facility] ??? Abdomen surgery ??? [...] Social history: , no children. Lives in [place]. 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 Smoking: Active smoker, 2ppd Alcohol: [...] complex vitamins (B COMPLEX-VITAMIN B12) tablet ??? ipedpsqakfne-dasx-rdqhqkix (COMPLETE MULTIVITAMIN) Tab tablet 1 Tablet(s), PO, Once daily ??? calcium citrate-vitamin D (CITRACAL+D) 315-200 mg-unit per tablet 2 Tablet(s), PO, Twice daily ??? ergocalciferol (VITAMIN D) 50,000 unit capsule [id number], PO, TWICE a week Allergies Allergen Reactions [...] Coronary atherosclerosis of unspecified type of vessel, lower brule or graft Smoking Tobacco use disorder documented in this encounter Care Teams Belt Operator Relationship Specialty Start Date End Date Aman Lawrence APRN [address] [place] [address] PCP - General 06/16/10 06/27/18 documented as of this encounter
--- OUTSIDE RECORDS SUMMARY | 2024-08-07 14:15 | XMS_ITS | Encounter Summary ---
Author Organization [facility] [place] [address] Care Team Providers Care Watch Parts Inspector Name Role Phone Yisel Marroquin MD Primary Care Provider Unavail able Encounter Details Date Type Department Care Team (Late st Contact Info) Description 10/29/2014 Abstract Shawnee Rice Conversion Results [address] [place] [address] Apd Conversion, Flowsheet Provider, Social History Tobacco [...] on filedocumented in this encounter Care Teams Watch Parts Inspector Relationship Specialty Start Date End Date Yisel Marroquin MD PCP - General 11/13/18 03/05/19 documented as of this encounter
--- OUTSIDE RECORDS SUMMARY | 2024-08-07 14:15 | XMS_ITS | Encounter Summary ---
Author Organization [facility] [place] [address] Care Team Providers Care Supercharger Repair Supervisor Name Role Phone Hoang Castellanos APRN Primary Care Provider Reason for Visit * Reason Comments Medication Refill Encounter Details Date Type Department Care Team (Late st Contact Info) Description 02/04/2014 Refill Intermediate [place] [phone] Tamar Kay MD [facility] GENERAL [place] [address] Social History Tobacco Use Types Packs/Day Years [...] documented as of this encounter Care Teams Supercharger Repair Supervisor Relationship Specialty Start Date End Date Hoang Castellanos, SAM [address] [place] [address] PCP - General Family Medicine 03/12/20 documented as of this encounter
--- OUTSIDE RECORDS SUMMARY | 2024-08-07 14:15 | XMS_ITS | Encounter Summary ---
[place] [address] Care Team Providers Care Residential Mortgage Underwriter Name Role Phone Aman Lawrence APRN Primary Care Provider +1 -[phone] Encounter Details Date Type Department Care Team (Latest Contact Info) Description 05/10/2013 8:57 AM EDT - 05/10/2013 11:59 PM EDT Hospital Encounter Non-Invasive [place] [phone] CARDIAC REHAB, PROG CRP Cardiac Rehab Prog, [...] vitamins (B COMPLEX-VITAMIN B12) tablet 09/23/2010 11/19/2016 zijihgndsmsu-djlk-xdfwu als (COMPLETE MULTIVITAMIN) Tab tablet 1 Tablet(s), PO, Once daily 09/23/2010 11/19/2016 calcium citrate-vitamin D (CITRACAL+D) 315-200 mg-unit per tablet 2 Tablet(s), PO, Twice daily 09/23/2010 11/19/2016 ergocalciferol (VITAMIN D) 50,000 unit capsule [id number], PO, TWICE a week 09/23/2010 11/19/2016 documented [...] is under the direction of the medical laboratory scientist,Dr Yvon Gomez. The program includes telemetry monitored exercise sessions with progressive increases in exercise level as appropriate. Educational classes are also provided regarding medications, low fat/chol diet instruction, weight loss, exercise guidelines, stress management and risk factor modification. The patient's progress will be reviewed with the medical laboratory scientist every 2-3 weeks during the courseof the program and with the PCP and/or LOG HAULER intermittently. For details of individual class sessions, [...] 239.4 Lbs. I Body Fat %: 44.8 [place] Body Fat: 22-31 % BMI: 40.9 Waist [...] Coronary atherosclerosis of unspecified type of vessel, atka or graft documented in this encounter Care Teams Residential Mortgage Underwriter Relationship Specialty Start Date End Date Aman Lawrence APRN [address] [place] [address] PCP - General 06/16/10 06/27/18 documented as of this encounter
--- OUTSIDE RECORDS SUMMARY | 2024-08-07 14:15 | XMS_ITS | Encounter Summary ---
Author Organization [facility] Address [facility] [place] [address] Care Team Providers Care Job Placement Officer Name Role Phone Aman Lawrence APRN Primary Care Provider +1 -[phone] Reason for Visit * Reason Comments Coronary Artery Disease Encounter Details Date Type Department Care Team (Late st Contact Info) Description 05/10/2013 8:10 AM EDT Office Visit Cardiology at [address] [address] Freddy Mejias MD [facility] [place] [address] CAD (coronary artery disease) (Primary Dx) Discharge [...] stenosis of the mid LAD. She received LAF x 2. EF was60% by Echo. Patient [...] WRIGHT at [facility] ??? Abdomen surgery ??? Hysterectomy [...] Social history: , no children. Lives in [place]. 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 Smoking: Active smoker, 2ppd Alcohol: Prior [...] ??? VITAMIN D2 50,000 UNIT CAPSULE Oral [id number], PO, TWICE a week ??? QUETIAPINE ER [...] (Bezet) 364 ms MUSE SYSTEM Calculated P Remus 34 degrees MUSE SYSTEM Calculated R [place]us 53 degrees MUSE SYSTEM Calculated T Remus 50 degrees MUSE SYSTEM INTERPRETATION Sinus bradycardia [...] Coronary atherosclerosis of unspecified type of vessel, squaxin or graft documented in this encounter Care Teams Job Placement Officer Relationship Specialty Start Date End Date Aman Lawrence APRN [address] [place] [address] PCP - General 06/16/10 06/27/18 documented as of this encounter
--- OUTSIDE RECORDS SUMMARY | 2024-08-07 14:15 | XMS_ITS | Encounter Summary ---
[place] [address] Care Team Providers Care Iron Installer Name Role Phone Aman Lawrence APRN Primary Care Provider +1 -[phone] Encounter Details Date Type Department Care Team (Late st Contact Info) Description 06/20/2013 Notes [place] [address] Monique Lopez Social History Tobacco Use Types [...] Till then she will be moved to [facility]. documented in this encounter Plan of Treatment Not on file documented as of this encounter Visit Diagnoses Not on filedocumented in this encounter Care Teams Iron Installer Relationship Specialty Start Date End Date Aman Lawrence APRN [address] [place] [address] PCP - General 06/16/10 06/27/18 documented as of this encounter
--- OUTSIDE RECORDS SUMMARY | 2024-08-07 14:15 | XMS_ITS | Encounter Summary ---
Author Organization [facility] Address [facility] [place] [address] Care Team Providers Care Cable Worker Helper Name Role Phone Yisel Marroquin MD Primary Care Provider Unavail able Encounter Details Date Type Department Care Team (Late st Contact Info) Description 09/17/2014 Abstract Shawnee Rice Conversion Results [address] [place] [address] Apd Conversion, Flowsheet Provider, Social History Tobacco [...]
--- OUTSIDE RECORDS SUMMARY | 2024-08-07 14:15 | XMS_ITS | Encounter Summary ---
Author Organization [facility] Address [facility] [place] [address] Care Team Providers Care Laborer Stores Name Role Phone Hoang Castellanos APRN Primary Care Provider Reason for Visit * Reason Comments Medication Refill Encounter Details Date Type Department Care Team (Late st Contact Info) Description 07/12/2014 Refill [place] [address] Tamar Kay MD [facility] GENER[place] [address] Social History Tobacco Use Types Packs/Day Years [...] documented as of this encounter Care Teams Laborer Stores Relationship Specialty Start Date End Date Hoang Castellanos, SAM [address] [place] [address] PCP - General Family Medicine 03/12/20 documented as of this encounter
--- OUTSIDE RECORDS SUMMARY | 2024-08-07 14:15 | XMS_ITS | Encounter Summary ---
[place] [address] Care Team Providers Care Financial Services Intern Name Role Phone Aman Lawrence APRN Primary Care Provider +1 -[phone] Encounter Details Date Type Department Care Team (Late st Contact Info) Description 05/14/2013 Notes [place] [address] [facility] [place] [address] Social History Tobacco Use Types Packs/Day Years [...] complex vitamins (B COMPLEX-VITAMIN B12) tablet ??? tnxnurvcqdyx-hmlg-ezkuaflw (COMPLETE MULTIVITAMIN) Tab tablet 1 Tablet(s), PO, Once daily ??? calcium citrate-vitamin D (CITRACAL+D) 315-200 mg-unit per tablet 2 Tablet(s), PO, Twice daily ??? 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
--- OUTSIDE RECORDS SUMMARY | 2024-08-07 14:15 | XMS_ITS | Encounter Summary ---
Author Organization [facility] Address [facility] [place] [address] Care Team Providers Care Back Tender Pulp Drier Name Role Phone Aman Lawrence APRN Primary Care Provider +1 -[phone] Reason for Visit * Reason Onset Date Comments Medication Refill 08/02/2013 Simvastatin Encounter Details Date Type Department Care Team (Late st Contact Info) Description 08/02/2013 Refill Cardiology at [address] [address] Freddy Mejias MD [facility] [place] [address] Medication Refill (Simvastatin) Social History Tobacco Use [...] Coronary atherosclerosis of unspecified type of vessel, [place] or graft documented in this encounter Care Teams Back Tender Pulp Drier Relationship Specialty Start Date End Date Aman Lawrence APRN [address] [place] [address] PCP - General 06/16/10 06/27/18 documented as of this encounter
--- OUTSIDE RECORDS SUMMARY | 2024-08-07 14:15 | XMS_ITS | Encounter Summary ---
[place] [address] Care Team Providers Care Body Shop Worker Name Role Phone Aman Lawrence APRN Primary Care Provider +1 -[phone] Reason for Visit * Reason Onset Date Comments Other 06/01/2013 request alternat kayden medication Encounter Details Date Type Department Care Team (Late st Contact Info) Description 06/01/2013 Telephone [place] [phone] Sidra Diaz RN Other (request alternative medication) [...] of leakage. Will discuss with Sidra Vallejo CLINIC SPECIALIST documented in this encounter Plan of Treatment Not on file documented as of this encounter Visit Diagnoses Not on filedocumented in this encounter Care Teams Body Shop Worker Relationship Specialty Start Date End Date Aman Lawrence APRN [address] [place] [address] PCP - General 06/16/10 06/27/18 documented as of this encounter
--- OUTSIDE RECORDS SUMMARY | 2024-08-07 14:15 | XMS_ITS | Encounter Summary ---
Author Organization [facility] Address [facility] [place] [address] Care Team Providers Care Applications Engineer Manufacturing Name Role Phone Yisel Marroquin MD Primary Care Provider Unavail able Encounter Details Date Type Department Care Team (Late st Contact Info) Description 02/10/2014 Interpretation Only Radiology [address] [facility] [place] [address] Unknown None Social History Tobacco Use Types [...] 5:07 PM EDT APD Historical Result Principal Manager Philosophy: ??JENNY ?KAYLIE SUPINE ABDOMEN: Supine views of [...] clearly demonstrated by Radiography. Jenny Landa MD [facility]/mn [id number] CC: Procedure Note Unknown - 01/22/2019 APD Historical Result Principal Manager Philosophy: JENNY LANDA SUPINE ABDOMEN: Supine views of [...] not clearlydemonstrated by Radiography. Jenny Landa MD [facility]/co [id number] CC: Unknown IMG DX ORDERABLES documented in this encounter Visit Diagnoses Not on filedocumented in this encounter Care Teams Applications Engineer Manufacturing Relationship Specialty Start Date End Date Yisel Marroquin MD PCP - General 11/13/18 03/05/19 documented as of this encounter
--- OUTSIDE RECORDS SUMMARY | 2024-08-07 14:15 | XMS_ITS | Encounter Summary ---
Author Organization [facility] Address [facility] [place] [address] Care Team Providers Care Certified Nursing Assistant Name Role Phone Yisel Marroquin MD Primary Care Provider Unavail able Encounter Details Date Type Department Care Team (Late st Contact Info) Description 06/05/2014 Abstract [place] Conversion Results [address] [place] [address] Apd Conversion, Flowsheet Provider, Social History Tobacco [...] filedocumented in this encounter Care Teams Certified Nursing Assistant Relationship Specialty Start Date End Date Yisel Marroquin MD PCP - General 11/13/18 03/05/19 documented as of this encounter
--- OUTSIDE RECORDS SUMMARY | 2024-08-07 14:15 | XMS_ITS | Encounter Summary ---
[place] [address] Care Team Providers Care Web Press Jogger Name Role Phone Yisel Marroquin MD Primary Care Provider Unavail able Encounter Details Date Type Department Care Team (Late st Contact Info) Description 12/19/2013 Orders Only Radiology and Cardiology Results [address] [place] [address] Apd Conversion, Results Provider, Social [...] Lab) [facility] CONVERSION LDL Cholesterol 45(Yard Supervisor al Lab) [facility] CONVERSION HDL Cholesterol 40(Yard Supervisor al Lab) 40 - 60 [facility] CONVERSION Triglyceride 109(Exter nal Lab) 30 - 150 [facility] CONVERSION Cholesterol, Total 107(Exter nal Lab) 0 - 200 [facility] CONVERSION 12/19/2013 Results Provider Apd Conversion MD JASON ESTRELLA ORDERABLES [facility] CONVERSION documented in this encounter Visit Diagnoses Not on filedocumented in this encounter Care Teams Web Press Jogger Relationship Specialty Start Date End Date Yisel Marroquin MD PCP - General 11/13/18 03/05/19 documented as of this encounter
--- OUTSIDE RECORDS SUMMARY | 2024-08-07 14:15 | XMS_ITS | Encounter Summary ---
Author Organization [facility] [place] [address] Care Team Providers Care Deaf Teacher Name Role Phone Yisel Marroquin MD Primary Care Provider Unavail able Encounter Details Date Type Department Care Team (Late st Contact Info) Description 02/12/2014 Abstract [place] Conversion Results [address] [place] [address] Apd Conversion, Flowsheet Provider, Social History Tobacco [...] on filedocumented in this encounter Care Teams Deaf Teacher Relationship Specialty Start Date End Date Yisel Marroquin MD PCP - General 11/13/18 03/05/19 documented as of this encounter
--- OUTSIDE RECORDS SUMMARY | 2024-08-07 14:15 | XMS_ITS | Encounter Summary ---
[place] [address] Care Team Providers Care Pupil Personnel Services Director Name Role Phone Aman Lawrence APRN Primary Care Provider [phone] [phone] Reason for Visit * Reason Onset Date Comments Other 05/31/2013 tobacco cessatio n referral rec'd from Jorge Lopez. T/C to pt re: tobacco cessation resources. See documentation Encounter Details Date Type Department Care Team (Late st Contact Info) Description 05/31/2013 [place] [address] Indu Torres RN Other (tobacco cessation referral [...] treatment note: Tobacco cessation referral rec'd from oJrge Lopez, Cardiac Rehab T/c to Mrs Rico [...] smoking 2 ppd. [facility] and would like to come to the [facility] Tobacco Treatment clinic. O/A: Positive recognition was [...] are available in her local area: [facility] is offering FreshStart Classes at the [facility] in [place], [place] [phone] and there is a one-on-one tobacco counseling program & free NRT [facility] the [facility] on Tuesday's 9-3 pm. The [place] [facility] (0-465-DKGQ-NOW offers free telephonic tobacco counseling and free NRT to those whose prescription plans do not cover for the OTC medication. Discussed Reviewed the contents in the [facility] Tobacco cessation packet & D Tobacco treatment free clinic which is held on Tuesday and 9:30-11:30 in the [facility] Education Center on 4-H. Plan: Mrs. Rico plans to contact the [facility] in [facility] for smoking cessation classes and one-on-one to get ready for her Quit date for Jun 29, 2013. She has all contact information and states she will call [facility] Tobacco treatment Program if she opts to schedule an appointment for 2012. Indu Torres RN, MS, C-TTS Beeper 2064 documented in this encounter Plan of Treatment Not on file documented as of this encounter Visit Diagnoses Not on filedocumented in this encounter Care Teams Pupil Personnel Services Director Relationship Specialty Start Date End Date Aman Lawrence APRN [address] [place] [address] PCP - General 06/16/10 06/27/18 documented as of this encounter
--- OUTSIDE RECORDS SUMMARY | 2024-08-07 14:15 | XMS_ITS | Encounter Summary ---
[place] [address] Care Team Providers Care Die Cutter Name Role Phone Aman Lawrence APRN Primary Care Provider +1 -[phone] Encounter Details Date Type Department Care Team (Late st Contact Info) Description 02/10/2014 [place] [address] Humberto Cerda MD Social History Tobacco Use [...] is a Non-reportable exam Humberto Cerda MD [facility] FILM LIBRARY ORD ERABLES documented in this encounter Visit Diagnoses Not on filedocumented in this encounter Care Teams Die Cutter Relationship Specialty Start Date End Date Aman Lawrence APRN [address] [place] [address] PCP - General 06/16/10 06/27/18 documented as of this encounter
--- OUTSIDE RECORDS SUMMARY | 2024-08-07 14:15 | XMS_ITS | Encounter Summary ---
[place] [address] Care Team Providers Care Application Integrator Name Role Phone Aman Lawrence APRN Primary Care Provider +1 [phone] Encounter Details Date Type Department Care Team (Late st Contact Info) Description 02/22/2014 3:50 PM EDT [place] [address] Jovany Cerda MD Kidney stone (Primary Dx) [...] kidney stone. She was seen in the [facility] ED on 02/11/14 with left [...] GI ENDOSCOPY performed by DEE WRIGHT at [facility] ENDOSCOPY ??? Abdomen surgery ??? Hysterectomy [...] complex vitamins (B COMPLEX-VITAMIN B12) tablet ??? rdjxufvgbbke-esci-yerjtgxf (COMPLETE MULTIVITAMIN) Tab tablet 1 Tablet(s), PO, Once daily ??? calcium citrate-vitamin D (CITRACAL+D) 315-200 mg-unit per tablet 2 Tablet(s), PO, Twice daily ??? ergocalciferol (VITAMIN D) 50,000 unit capsule [id number], PO, TWICE a week Allergies Allergen Reactions [...] ? pm) Patient Info ID #: ? [id number] ?: ??[birth year] (53 yrs) Name: ? JEANNIE Lawson APOLINAR ?Visit Date: 03/11/2014 03:57 pm Performed By Performed By: ?Elsa Guerra RDMS Associate: ? Wilfrido Stuart DO Attending: ? Christiano SLADE, Elba Carbajal Referred By: ? JOVANY CERDA MD Service(s) Provided ??URETRO - Retroperitoneal Complete - [id number] ? [id number] Indications ??kidney stone Right Kidney Size (cm) [...] 03/11/2014 04:10 pm) Patient Info ID #: [id number] : 60 (53 yrs) Name: JEANNIE RICO Visit Date: 03/11/2014 03:57 pm Performed By Performed By: Elsa Guerra RDMS Associate: Wilfrido Stuart DO Attending: Elba Alvarado MD Referred By: JOVANY CERDA MD Service(s) Provided URETRO - Retroperitoneal Complete - [id number] Indications kidney stone Right Kidney Size (cm) [...] ? Ordered By: JOVANY CERDA ? MR#: [id number] ?LOC: ??5B ? /Sex: ??1960 (53 years), ? Female ? PROCEDURE: Urine Culture ?SOURCE: U CC ? COLLECTED: 02/22/2014 17:18 ? STARTED: 02/22/2014 17:19 ? FINAL REPORT ? Final Report ? Verified:2013 15:43 ? 1,000-9,000 cfu/ml Gram Positive organisms , probable contaminant ? [facility] Urine specimen obtained by clean catch procedure (specimen) 02/22/2014 5:18 PM EDT 02/22/2014 5:18 PM EDT Narrative Resulting Agency Comment Spec In Lab Jovany Cerda MD [facility]BIOLOGY - [facility] ORDERABLES Performing Organization Address City/State/[facility] Co de Phone Number CERNER MILLENNIUM * [...] Urine Dipstick Clear Clear CERNER MILLENNIUM Specific [place] Urine Automated 1.019 1.002 - 1.030 CERNER [...] In Lab Jovany Cerda MD URINE ORDERABLES [facility] documented in this encounter Visit Diagnoses Diagnosis Kidney stone- Primary Calculus of kidney Kidney stone Calculus of kidney documented in this encounter Care Teams Application Integrator Relationship Specialty Start Date End Date Aman Lawrence APRN [address] [place] [address] PCP - General 06/16/10 06/27/18 documented as of this encounter
--- OUTSIDE RECORDS SUMMARY | 2024-08-07 14:15 | XMS_ITS | Encounter Summary ---
[place] [address] Care Team Providers Care Extruding Press Operator Name Role Phone Aman Lawrence APRN Primary Care Provider +1 -[phone] Encounter Details Date Type Department Care Team (Late st Contact Info) Description 03/11/2014 2:50 PM EDT - 03/11/2014 11:59 PM EDT Hospital Encounter [place] [phone] Kidney stone Social History Tobacco Use Types [...] vitamins (B COMPLEX-VITAMIN B12) tablet 09/23/2010 11/19/2016 jufdvexzjtjj-loyo-iwbal als (COMPLETE MULTIVITAMIN) Tab tablet 1 Tablet(s), PO, Once daily 09/23/2010 11/19/2016 calcium citrate-vitamin D (CITRACAL+D) 315-200 mg-unit per tablet 2 Tablet(s), PO, Twice daily 09/23/2010 11/19/2016 ergocalciferol (VITAMIN D) 50,000 unit capsule [id number], PO, TWICE a week 09/23/2010 11/19/2016 documented [...] ? pm) Patient Info ID #: ? [id number] ?: ??[birth year] (53 yrs) Name: ? YVONNE RICO ?Visit Date: 03/11/2014 03:57 pm Performed By Performed By: ?Elsa Guerra RDMS Associate: ? Wilfrido Stuart DO Attending: ? Christiano SLADE, Elba Carbajal Referred By: ? HUMBERTO BARAJAS MD Service(s) Provided ??URETRO - Retroperitoneal Complete - [id number] ? [id number] Indications ??kidney stone Right Kidney Size (cm) [...] 03/11/2014 04:10 pm) Patient Info ID #: [id number] : 60 (53 yrs) Name: YVONNE RICO Visit Date: 03/11/2014 03:57 pm Performed By Performed By: Elsa Guerra RDMS Associate: Wilfrido Stuart DO Attending: Elba Alvarado MD Referred By: HUMBERTO BARAJAS MD Service(s) Provided URETRO - Retroperitoneal Complete - [id number] Indications kidney stone Right Kidney Size (cm) [...] kidney documented in this encounter Care Teams Extruding Press Operator Relationship Specialty Start Date End Date Aman Lawrence APRN [address] [place] [address] PCP - General 06/16/10 06/27/18 documented as of this encounter
--- OUTSIDE RECORDS SUMMARY | 2024-08-07 14:15 | XMS_ITS | Encounter Summary ---
Author Organization [facility] Address [facility] [place] [address] Care Team Providers Care Elephant Tamer Name Role Phone Yisel Marroquin MD Primary Care Provider Unavail able Encounter Details Date Type Department Care Team (Late st Contact Info) Description 04/16/2014 Abstract [place] Conversion Results [address] [place] [address] Apd Conversion, Flowsheet Provider, Social History Tobacco [...] filedocumented in this encounter Care Teams Elephant Tamer Relationship Specialty Start Date End Date Yisel Marroquin MD PCP - General 11/13/18 03/05/19 documented as of this encounter
--- OUTSIDE RECORDS SUMMARY | 2024-08-07 14:15 | XMS_ITS | Encounter Summary ---
[facility] [place] [address] Care Team Providers Care Schedule Clerk Name Role Phone Yisel Marroquin MD Primary Care Provider Unavail able Encounter Details Date Type Department Care Team (Late st Contact Info) Description 12/13/2014 Abstract [place] Conversion Results [address] [place] [address] Apd Conversion, Flowsheet Provider, Social History Tobacco [...] on filedocumented in this encounter Care Teams Schedule Clerk Relationship Specialty Start Date End Date Yisel Marroquin MD PCP - General 11/13/18 03/05/19 documented as of this encounter
--- OUTSIDE RECORDS SUMMARY | 2024-08-07 14:15 | XMS_ITS | Encounter Summary ---
Author Organization [facility] [place] [address] Care Team Providers Care Nut Sheller Machine Operator Name Role Phone Aman Lawrence APRN Primary Care Provider [phone] [phone] Reason for Visit * Reason Comments Medication Refill Encounter Details Date Type Department Care Team (Late st Contact Info) Description 06/06/2013 Refill Intermediate [place] [phone] Tamar Kay MD [facility] [place] [address] Social History Tobacco Use Types Packs/Day Years [...] filedocumented in this encounter Care Teams Nut Sheller Machine Operator Relationship Specialty Start Date End Date Aman Lawrence APRN [address] [address] PCP - General 06/16/10 06/27/18 documented as of this encounter
--- OUTSIDE RECORDS SUMMARY | 2024-08-07 14:15 | XMS_ITS | Encounter Summary ---
Author Organization [facility] Address One [facility] [place] [address] Care Team Providers Care Manager Social Services Name Role Phone Yisel Marroquin MD Primary Care Provider Unavail able Encounter Details Date Type Department Care Team (Late st Contact Info) Description 02/10/2014 Interpretation Only Radiology [address] [facility] [place] [address] Unknown None Social History Tobacco Use Types [...] 5:07 PM EDT APD Historical Result Principal Touch Up Worker: ??JENNY ??SYEDA CT ABDOMEN AND PELVIS WITHOUT [...] described above. ?? Results discussed with Dr iMx at 6:20 p.m. on February 10, 2014. Jenny Landa MD [facility]/wy [id number] CC: Procedure Note Unknown - 01/22/2019 APD Historical Result Principal Touch Up Worker: JENNY LANDA CT ABDOMEN AND PELVIS WITHOUT [...] on February 10, 2014. Jenny Landa MD [facility]/wy [id number] CC: Unknown IMG CT ORDERABLES documented in this encounter Visit Diagnoses Not on filedocumented in this encounter Care Teams Manager Social Services Relationship Specialty Start Date End Date Yisel Marroquin MD PCP - General 11/13/18 03/05/19 documented as of this encounter
--- OUTSIDE RECORDS SUMMARY | 2024-08-07 14:15 | XMS_ITS | Encounter Summary ---
[place] [address] Care Team Providers Care Cognos Bi Developer Name Role Phone Yisel Marroquin MD Primary Care Provider Unavail able Encounter Details Date Type Department Care Team (Late st Contact Info) Description 12/19/2013 Orders Only Radiology and Cardiology Results [address] [place] [address] Apd Conversion, Results Provider, Social [...] on filedocumented in this encounter Care Teams Cognos Bi Developer Relationship Specialty Start Date End Date Yisel Marroquin MD PCP - General 11/13/18 03/05/19 documented as of this encounter
--- OUTSIDE RECORDS SUMMARY | 2024-08-07 14:15 | XMS_ITS | Encounter Summary ---
[place] [address] Care Team Providers Care Geological Technician Name Role Phone Aman Lawrence APRN Primary Care Provider [phone] -[phone] Reason for Visit * Reason Onset Date Comments Other 06/04/2013 ?PPI with Plavix Encounter Details Date Type Department Care Team (Late st Contact Info) Description 06/04/2013 Telephone Cardiology at [address] [phone] Irasema Mohan RN Other (?PPI with Plavix) [...] filedocumented in this encounter Care Teams Geological Technician Relationship Specialty Start Date [place] [address] PCP - General 06/16/10 06/27/18 documented as of this encounter
--- OUTSIDE RECORDS SUMMARY | 2024-08-07 14:15 | XMS_ITS | Encounter Summary ---
Author Organization [facility] Address [facility] [place] [address] Care Team Providers Care Dip Filler Name Role Phone Yisel Marroquin MD Primary Care Provider Unavail able Encounter Details Date Type Department Care Team (Late st Contact Info) Description 01/14/2014 Abstract [place] Conversion Results [address] [place] [address] Apd Conversion, Flowsheet Provider, Social History Tobacco [...] on filedocumented in this encounter Care Teams Dip Filler Relationship Specialty Start Date End Date Yisel Marroquin MD PCP - General 11/13/18 03/05/19 documented as of this encounter
--- OUTSIDE RECORDS SUMMARY | 2024-08-07 14:15 | XMS_ITS | Encounter Summary ---
Author Organization [facility] [place] [address] Care Team Providers Care Lcpc Name Role Phone Yisel Marroquin MD Primary Care Provider Unavail able Encounter Details Date Type Department Care Team (Late st Contact Info) Description 08/12/2014 Abstract [place] Conversion Results [address] [place] [address] Apd Conversion, Flowsheet Provider, Social History Tobacco [...] on filedocumented in this encounter Care Teams Lcpc Relationship Specialty Start Date End Date Yisel Marroquin MD PCP - General 11/13/18 03/05/19 documented as of this encounter
--- OUTSIDE RECORDS SUMMARY | 2024-08-07 14:15 | XMS_ITS | Encounter Summary ---
[place] [address] Care Team Providers Care Heavy Duty Diesel Mechanic Name Role Phone Aman Lawrence APRN Primary Care Provider +1 [phone] Encounter Details Date Type Department Care Team (Late st Contact Info) Description 03/11/2014 4:00 PM EDT [place] [phone] CLINIC, Humberto Bah MD Kidney stone (Primary [...] for f/u. She was seen in the [facility] ED on 02/11/14 with left flank [...] GI ENDOSCOPY performed by DEE WRIGHT at [facility] ENDOSCOPY ??? Abdomen surgery ??? Hysterectomy Gastric [...] complex vitamins (B COMPLEX-VITAMIN B12) tablet ??? zdxftjnzspmq-mcto-nawarsey (COMPLETE MULTIVITAMIN) Tab tablet 1 Tablet(s), PO, Once daily ??? calcium citrate-vitamin D (CITRACAL+D) 315-200 mg-unit per tablet 2 Tablet(s), PO, Twice daily ??? ergocalciferol (VITAMIN D) 50,000 unit capsule [id number], PO, TWICE a week Allergies Allergen Reactions [...] kidney documented in this encounter Care Teams Heavy Duty Diesel Mechanic Relationship Specialty Start Date End Date Aman Lawrence APRN [address] [place] [address] PCP - General 06/16/10 06/27/18 documented as of this encounter
--- OUTSIDE RECORDS SUMMARY | 2024-08-07 14:15 | XMS_ITS | Encounter Summary ---
Author Organization [facility] [place] [address] Care Team Providers Care Glaze Supervisor Name Role Phone Aman Lawrence APRN Primary Care Provider +1 -[phone] Encounter Details Date Type Department Care Team (Late st Contact Info) Description 07/15/2014 Abstract Family Practice at [address] [phone] Sadie Britton, RN Social History Tobacco Use [...] on filedocumented in this encounter Care Teams Glaze Supervisor Relationship Specialty Start Date End Date Aman Lawrence APRN [address] [place] [address] PCP - General 06/16/10 06/27/18 documented as of this encounter
--- OUTSIDE RECORDS SUMMARY | 2024-08-07 14:15 | XMS_ITS | Encounter Summary ---
Author Organization [facility] Address [facility] [place] [address] Care Team Providers Care Human Resources Benefits Assistant Name Role Phone Yisel Marroquin MD Primary Care Provider Unavail able Encounter Details Date Type Department Care Team (Late st Contact Info) Description 08/07/2014 Abstract [place] Conversion Results [address] [place] [address] Apd Conversion, Flowsheet Provider, Social History Tobacco [...] in this encounter Care Teams Human Resources Benefits Assistant Relationship Specialty Start Date End Date Yisel Marroquin MD PCP - General 11/13/18 03/05/19 documented as of this encounter
--- OUTSIDE RECORDS SUMMARY | 2024-08-07 14:15 | XMS_ITS | Encounter Summary ---
Author Organization [facility] Address [facility] [place] [address] Care Team Providers Care Military Technology Specialist Name Role Phone Aman Lawrence APRN Primary Care Provider [phone] Reason for Visit * Reason Onset Date Comments Medication Problem 04/18/2013 Encounter Details Date Type Department Care Team (Late st Contact Info) Description 04/18/2013 Telephone Cardiology at [address] [id number] Freddy Mejias MD [facility] [place] [address] Medication Problem Social History Tobacco Use Types [...] take it. She can be reached at [phone]. Thank you. documented in this encounter Plan of Treatment Not on file documented as of this encounter Visit Diagnoses Not on filedocumented in this encounter Care Teams Military Technology Specialist Relationship Specialty Start Date End Date Aman Lawrence APRN [address] [place] [id number] PCP - General 06/16/10 06/27/18 documented as of this encounter
--- OUTSIDE RECORDS SUMMARY | 2024-08-07 14:15 | XMS_ITS | Encounter Summary ---
[place] [address] Care Team Providers Care Belt Splicer Name Role Phone Yisel Marroquin MD Primary Care Provider Unavail able Encounter Details Date Type Department Care Team (Late st Contact Info) Description 10/21/2014 Orders Only Radiology and Cardiology Results [address] [place] [address] Apd Conversion, Results Provider, Social [...] 116.9 [address] DAY CONVERSION Hemoglobin A1c 6.1(Engineering Programmer al Lab) 4.5 - 6.2 KORI FLORES DAY CONVERSION 10/21/2014 Results Provider Apd Conversion MD JASON ESTRELLA ORDERABLES KORI FLORES DAY CONVERSION documented in this encounter Visit Diagnoses Not on filedocumented in this encounter Care Teams Belt Splicer Relationship Specialty Start Date End Date Yisel Marroquin MD PCP - General 11/13/18 03/05/19 documented as of this encounter
--- OUTSIDE RECORDS SUMMARY | 2024-08-07 14:15 | XMS_ITS | Encounter Summary ---
Author Organization [facility] Address [facility] [place] [address] Care Team Providers Care Project Developer Name Role Phone Yisel Marroquin MD Primary Care Provider Unavail able Encounter Details Date Type Department Care Team (Late st Contact Info) Description 05/16/2014 Abstract [place] Conversion Results [address] [place] [address] Apd Conversion, Flowsheet Provider, Social History Tobacco [...] filedocumented in this encounter Care Teams Project Developer Relationship Specialty Start Date End Date Yisel Marroquin MD PCP - General 11/13/18 03/05/19 documented as of this encounter
--- OUTSIDE RECORDS SUMMARY | 2024-08-07 14:15 | XMS_ITS | Encounter Summary ---
[place] [address] Care Team Providers Care Garnisher Name Role Phone Aman Lawrence APRN Primary Care Provider [phone] Reason for Visit * Reason Comments Follow-up Bariatric Surgery Zachary suárez Encounter Details Date Type Department Care Team (Late st Contact Info) Description 07/04/2013 2:30 PM EST Follow-Up General [place] [address] Sidra Del Toro APRN S/P gastric bypass [...] Encarnacion, RD - 07/03/2013 4:36 PM EST [facility] Admin coordinator Rhonda: [phone] Dietitian: [phone] Surgeons/ nurse practitioner: [phone] Nurse line: [phone] Your excess body weight lost: 37.5% Testing: [...] prefer, sign up for free account on www.[employer] to log your food- it will count [...] by eating a bigger serving of the nigerian yogurt. Other breakfast ideas: low fat/fat free [...] of every month from 1-2 PM at [facility] Back on Track group visits are held monthly Internet resources: www.[employer] [place] www.[employer] www.Zinc software Www.[employer] (cat Alonzo) [email or web address]/[email or web address]ING[facility]ariatricSurgery Books & Magazines: - Recipes for Life [...] of contrast was clearly seen within the citizen potawatomi fundus indicating a leak. The site of the leak was not identified, but it is assumed to be relatively high. Contrast flowed freely through the anastomosis and no retrograde flow was seen in the afferent loop.There is mild dilatation in the region of the Genesis-en-Y anastomosis. never Colonoscopy ? 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 [...] weight gain. She was advised that her terminal operator weight loss is excellent. She isstable from a bariatric surgery perspective. A staple line breakdown has not been confirmed, since she did not have the upper endoscopy that was ordered at her last visit in 2010. ?? Her case will be discussed at the next team meeting ?? Advised to discuss the timing of her next bone density scan with Primary Drum Dyeing Machine Operator ?? Next BSP visit: 1 year ?? [...] If labwork is done by the primary insurance healthcare representative: please send a copy to the Bariatric Surgery Program, General Surgery Clinic, [facility], attention Sidra Del Toro APRN. Plastic Surgery Clinic evaluation for skin redundancy: done no sooner than 18 months post-operatively when weight loss has been stable for a few months. In general, patients with a BMI >30-35 are not considered candidates due to increased risk of complications unless there are compelling health concern Questions regarding [facility] Bariatric Surgery Program patients: please call Jorge Del Toro APRN at [phone] or [phone] beeper [phone]. * Meena Encarnacion, RD - 07/03/2013 4:30 [...] cup cooked old fashioned oatmeal, 1/2 cup nigerian yogurt w fruit, 1/2 cup skim milk, 1/2 toast w ICBINB AM Snack none Lunch 12pm: 1/2 turkey sandwich (1 slice turkey), salad, 1/2 cup veggie soup, sugar free pudding PM Snack 2pm: fruit/whole wheat crackers w hummus or fruit/cucumber or tomato Dinner 5pm: chicken (3oz breast), 2 cups veggies, 1/2 cup peaches, salad w low fat amharic HS Snack 7pm: 1/2 cup sf pudding [...] rehab, but finished, so walking inside at [facility] or at [facility] [employer] where she works daily most days for [...] track food using online program, such as [employer] as patient reports she is using a [...] type of vessel, citizen potawatomi or graft Esophageal reflux documented in this encounter Care Teams Garnisher Relationship Specialty Start Date End Date Aman Lawrence APRN [address] [place] [address] PCP - General 06/16/10 06/27/18 documented as of this encounter
--- OUTSIDE RECORDS SUMMARY | 2024-08-07 14:15 | XMS_ITS | Encounter Summary ---
[place] [address] Care Team Providers Care Director Of Physiotherapy Services Name Role Phone Aman Lawrence APRN Primary Care Provider [phone] [phone] Encounter Details Date Type Department Care Team (Late st Contact Info) Description 02/10/2014 Orders [place] [address] Humberto Cerda MD Social History Tobacco Use [...] is a Non-reportable exam Humberto Cerda MD [facility] FILM LIBRARY ORD ERABLES documented in this encounter Visit Diagnoses Not on filedocumented in this encounter Care Teams Director Of Physiotherapy Services Relationship Specialty Start Date End Date Aman Lawrence APRN [address] [place] [address] PCP - General 06/16/10 06/27/18 documented as of this encounter
--- OUTSIDE RECORDS SUMMARY | 2024-08-07 14:16 | XMS_ITS | Encounter Summary ---
Author Organization [facility] Address [facility] [place] [address] Care Team Providers Care Biomedical Engineering Aide Name Role Phone Yisel Marroquin MD Primary Care Provider Unavail able Encounter Details Date Type Department Care Team (Late st Contact Info) Description 03/13/2013 Interpretation Only Radiology [address] [facility] [place] [address] Unknown None Social History Tobacco Use Types [...] 7:35 AM EDT APD Historical Result Principal Ultrasound Supervisor: ??BERYL ??BASIM MRI LUMBAR SPINE: CLINICAL [...] protrusion at L5/S1. Beryl Stallworth MD ALBAN/cornelio [id number] CC: Procedure Note Unknown - 01/22/2019 APD Historical Result Principal Ultrasound Supervisor: BERYL STALLWORTH MRI LUMBAR SPINE: CLINICAL [...] protrusion at L5/S1. Beryl Stallworth MD ALBAN/cornelio [id number] CC: Unknown IMG MRI ORDERABLES documented in this encounter Visit Diagnoses Not on filedocumented in this encounter Care Teams Biomedical Engineering Aide Relationship Specialty Start Date End Date Yisel Marroquin MD PCP - General 11/13/18 03/05/19 documented as of this encounter
--- OUTSIDE RECORDS SUMMARY | 2024-08-07 14:16 | XMS_ITS | Encounter Summary ---
[place] [address] Care Team Providers Care Software Installer Name Role Phone Yisel Marroquin MD Primary Care Provider Unavail able Encounter Details Date Type Department Care Team (Late st Contact Info) Description 11/14/2012 Orders Only Radiology and Cardiology Results [address] [place] [address] Apd Conversion, Results Provider, Social [...] filedocumented in this encounter Care Teams Software Installer Relationship Specialty Start Date End Date Yisel Marroquin MD PCP - General 11/13/18 03/05/19 documented as of this encounter
--- OUTSIDE RECORDS SUMMARY | 2024-08-07 14:16 | XMS_ITS | Encounter Summary ---
Author Organization [facility] [place] [address] Care Team Providers Care Butadiene Converter Utility Operator Name Role Phone Aman Lawrence APRN Primary Care Provider [phone] [phone] Encounter Details Date Type Department Care Team (Late st Contact Info) Description 01/18/2011 [place] [address] Bong Cabrera MD Social History Tobacco Use [...] on filedocumented in this encounter Care Teams Butadiene Converter Utility Operator Relationship Specialty Start Date End [place] [address] PCP - General 06/16/10 06/27/18 documented as of this encounter
--- OUTSIDE RECORDS SUMMARY | 2024-08-07 14:16 | XMS_ITS | Encounter Summary ---
Author [place] [address] Care Team Providers Care Fur Dressing Supervisor Name Role Phone Aman Lawrence APRN Primary Care Provider [phone] [phone] Reason for Visit * Reason Comments Obesity Encounter Details Date Type Department Care Team (Late st Contact Info) Description 11/11/2010 9:00 AM EDT Follow-[place] [id number] Sidra Del Toro APRN Bariatric surgery status; [...] Toro T - 11/11/2010 9:20 AM EDT [facility] Admin coordinator Rhonda: [phone] Dietitians: [phone] Surgeons/ nurse practitioner: [phone] Nurse line: [phone] Follow up: will discuss after your upper endoscopy Testing: Labwork: today Please note that labwork results from non-[facility] labs take longer to get results. Please remind the slab installer that certain test tubes need to be [...] Park in the Parking Garage. Go to Globe Tester Area 4T Prescription Medications: will be sent [...] of every month from 1-2 PM at [facility] documented in [...] Open cholecystectomy ~1991 - CHIP/BSO 1985 in [place] for ovarian cyst - Complete dental extractions [...] blood in stool [] chronic diarrhea/ constipation CARD HANGER: [] LMP: [] control [] menorrhagia [+] [...] visits. Iflabwork is done by the primary urgent care nurse practitioner: please send a copy to the Bariatric Surgery Program,General Surgery Clinic, [facility], attention Sidra Del Toro APRN. Plastic Surgery Clinic evaluation for skin redundancy: done no sooner than 18 months post-operatively when weight loss has been stable for a few months. In general, patients with a BMI >30-35 are not considered candidates due to increased risk of complications unless there are compelling health concerns. Questions regarding [facility] Bariatric Surgery Program patients: please call Jorge Del Toro APRN at [phone] or [phone] beeper [phone]. documented in this encounter Plan of Treatment [...] deficiency documented in this encounter Care Teams Fur Dressing Supervisor Relationship Specialty Start Date End Date Aman Lawrence APRN [address] [place] [address] PCP - General 06/16/10 06/27/18 documented as of this encounter
--- OUTSIDE RECORDS SUMMARY | 2024-08-07 14:16 | XMS_ITS | Encounter Summary ---
Author Organization [facility] [place] [address] Care Team Providers Care Pretzel Packer Name Role Phone Adriana Perla APRN Primary Care Provider [phone] Reason for Visit * Reason Comments Chest Pain Encounter Details Date Type Department Care Team (Late st Contact Info) Description 04/16/2013 10:00 AM EDT - 04/16/2013 11:00 AM EDT [place] [id number] Sergo Goins MD [facility] [place] [address] CARDIAC CATHETERIZATION Social History Tobacco Use Types [...] 2, 2PM Dr. Stephanie Osman [address] [place] [address] May 10, 8:10AM Amb[facility] Mal[facility] Your Primary Care Provider: ADRIANA PERLA APRN [address] / [place] [address] For questions regarding this document or issues relating to this hospitalization on the Medical Service, please contact your inpatient physician through the [facility] Machine Tailer . Issues afterhours and on weekends will be handled by the Hospitalist staff on-call. * Attachments The following attachments cannot be sent through Care Everywhere. * PERCUTANEOUS CORONARY INTERVENTION: WHAT TO EXPECT AT HOME (WELSH) documented in this encounter Medications at Time [...] vitamins (B COMPLEX-VITAMIN B12) tablet 09/23/2010 11/19/2016 hkucjmlmcnhk-rxar-lln erals (COMPLETE MULTIVITAMIN) Tab tablet 1 Tablet(s), PO, Once daily 09/23/2010 11/19/2016 calcium citrate-vitamin D (CITRACAL+D) 315-200 mg-unit per tablet 2 Tablet(s), PO, Twice daily 09/23/2010 11/19/2016 ergocalciferol (VITAMIN D) 50,000 unit capsule [id number], PO, TWICE a week 09/23/2010 11/19/2016 documented as of this encounter Progress Notes * Margarita Sharma RN - 04/17/2013 3:37 PM EDT 1540- Discharge orders available. Pt and career services director given discharge AVS, discharge summary, percutaneous intervention care instructions, medication information, diabetes tool kit and nutrition information via verbal and written communication. Pt and career services director expressed a correct verbal understanding of discharge instructions, percutaneous intervention care instructions and medication information. Pt disconnected from telemetry and IVs removed. Pt brought to [facility] via wheelchair and discharged for home via [...] a CHO level 2 diet. Recommend adding [facility] (Heart Healthy) to current diet order. 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 Recommend a daily multivitamin with minerals, 500 mcg of vitamin B12 daily, and 600 mg of calcium twice daily. Pt reports taking these vitamins consistently at home. P: 1. Recommend adding [facility] (Heart Healthy) to current diet order. 2. [...] at this time. Andres Good, MARYLIN Beeper# [id number] * Freddy Mejias MD - 04/17/2013 5:23 [...] Somers DO (PGY-1) Internal Medicine Resident Pager [phone] STAFF ADDENDUM Patient interviewed and examined. Medical [...] tomorrow as appropriate. Andres Good, PT Beeper# [id number] * Jeremy Radford OT - 04/16/2013 10:24 AM EDT Chart reviewed and orders received. 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 RN reports patient mobilizingwell and [...] Somers DO (PGY-1) Internal Medicine Resident Pager [phone] STAFF ADDENDUM Patient interviewed and examined. Medical [...] tablets and recommended she follow-up with a Green Chain Worker. This appointment was scheduled for 04/19 [...] with 325mg of Aspirin in route to [facility]. While in the ED, she had another [...] 05/12/00 Open cholecystectomy ~1991 CHIP/BSO 1985 in [place] for ovarian cyst Complete dental extractions 1998 [...] Social history: , no children. Lives in [place]. 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 Smoking: Active smoker, 2ppd Alcohol: [...] story is co ncerning for a Type-I [place]. I suspect she will need a Cardiac [...] Rae, elder sister) Kasia Cruz, PGY-2 Pager [phone] STAFF ADDENDUM Patient interviewed and examined. Medical [...] 04/18/2013 1:04 PM EDTAssociated Order(s): SCAN DOC: VETERINARY TOXICOLOGIST * Provider, Scanning - 04/16/2013 4:59 PM EDTAssociated Order(s): CARDIAC CATHETERIZATION * Provider, Scanning - 04/16/2013 11:59 AM EDTAssociated Order(s): CARDIAC CATHETERIZATION documented in this encounter ED Notes * Donna Saunders RN - 04/15/2013 12:19 AM EDT Awaiting transfer to [facility]. * Donna Saunders RN - 04/15/2013 12:17 [...] has arragned for her to see a system admin this coming . She comes in tonight [...] Score for ED patients with possible ACS, ([facility] 2009February 03:182(10):6516-03): 1) Age >= 65 years? +1 2) [...] of 19%. Score: 14-day triple point (mortality, [place], revascularization) 0 1.8% 1 4.0% 2 8.3% [...] to their service. Tavon Reed MD 04/14/13 0279 Recent Results (from the past 24 hour(s)) [...] URINE DIPSTICK Component Value Range POC Sp [place] 1.010 1.002 - 1.030 POC pH, UA [...] Internal Controls Acceptable Tavon Reed MD 04/14/13 2489 Tavon Reed MD 04/14/13 3243 * Vandana Marte RN - 04/14/2013 9:32 [...] tablets and recommended she follow-up with a Green Chain Worker. This appointment was scheduled for 04/19 [...] with 325mg of Aspirin in route to [facility]. While in the ED, she had another [...] complex vitamins (B COMPLEX-VITAMIN B12) tablet Oral rfsqdiighmkz-vddf-tvdrowql (COMPLETE MULTIVITAMIN) Tab tablet 1 Tablet(s), PO, Once daily, Oral calcium citrate-vitamin D (CITRACAL+D) 315-200 mg-unit per tablet 2 Tablet(s), PO, Twice daily, Oral ergocalciferol (VITAMIN D) 50,000 unit capsule [id number], PO, TWICE a week, Oral varenicline (CHANTIX) [...] 2PM Dr. Stephanie Osman [address] [place] [address] May 10, 8:10AM Ambrosio Maloney Cardiology [facility] Your Primary Care Provider: ADRIANA PERLA APRN [address] [place] [address] For questions regarding this document or issues relating to this hospitalization on the Medical Service, please contact your inpatient physician through the [facility] Machine Tailer . Issues afterhours and on weekends will be handled by the Hospitalist staff on-call. General Instructions None Future Appointments and Orders Future Appointments: Provider: Department: Dept Phone: Center: 05/03/2013 1:30 PM [facility] Cardiac Rehab Prog Non-Invasive Cardiology Lab [phone] None 05/10/2013 8:10 AM Freddy Mejias MD Cardiology [phone] [facility] Appt Nurse One Cardiology Intake, RN PETE[facility] 4A [phone] [facility] Future Orders Please Complete By Expires Referral to Cardiac Rehab [[id number] Custom] Process Instructions: If no progress note charted, please enter Clinical details in comments. Scheduling Instructions: Comments: Cardiac rehab at [facility] Questions: Responses: Reason for referral Angina, PCI Provider Contact Information: ADRIANA PERLA, SHOEMAKING CUTTER [address] / [facility] [address] Discharge References/Attachments: Discharge References/Attachments PERCUTANEOUS CORONARY INTERVENTION: WHAT TO EXPECT AT HOME (WELSH) Signed: Jefe Sharma, PGY-3 DATE: 04/19/13 * [...] parameters for home exercise. Phase II Referral: [facility], intake 05/03 at 1:30 Activity Summary: By [...] Breath sounds are distant, but clear. On case monitor she is in NSR no ectopy. [...] Procedure Name Priority Date/Time Associated Diagnosis Comments VETERINARY TOXICOLOGIST SCAN 04/18/2013 1:04 PM EDT CARDIAC CATHETERIZATION [...] Routine 04/16/2013 1:16 PM EDT CARDIAC ENZYMES ([facility]) STAT 04/16/2013 12:00 PM EDT ECHOCARDIOGRAM TRANSTHORACIC [...] Routine 04/15/2013 11:27 AM EDT CARDIAC ENZYMES ([facility]) Routine 04/15/2013 10:28 AM EDT APTT STAT [...] STAT 04/14/2013 9:10 PM EDT CARDIAC ENZYMES ([facility]) STAT 04/14/2013 9:10 PM EDT CREATININE STAT 04/14/2013 9:10 PM EDT CBC (WITH DIFF) STAT 04/14/2013 9:10 PM EDT BUN STAT 04/14/2013 9:10 PM EDT GLUCOSE STAT 04/14/2013 9:10 PM EDT ELECTROLYTES PANEL STAT 04/14/2013 9: 10 PM EDT EKG 12-LEAD STAT 04/14/2013 8:57 PM EDT documented in this encounter Results * SCAN DOC: VETERINARY TOXICOLOGIST (04/18/2013 1:04 PM EDT) Anatomical Region Laterality [...] Glucose, POC 138 60 - 199 mg/dL [facility] Comment: Supplemental ranges: <110 mg/dL before meals <200 mg/dL all other times of the day Blood specimen (specimen) 04/17/2013 11:50 AM EDT 04/17/2013 11:50 AM EDT Freddy Mejias MD POINT OF CARE TEST O RDERABLES Performing Organization Address [facility] de Phone Number [facility] * (ABNORMAL) Hemoglobin (04/17/2013 11:13 AM EDT) Hemoglobin 10.2(L) 11.2 - 15.7 gm/dL [facility] Blood specimen (specimen) 04/17/2013 11:13 AM EDT 04/17/2013 11:27 AM EDT Narrative Resulting Agency Comment Spec In Lab Freddy Mejias MD HEMATOLOGY ORDERABLE S Performing Organization Address [facility] de Phone Number [facility] * POCT Glucose (04/17/2013 7:37 AM EDT) Glucose, POC 95 60 - 199 mg/dL [facility] Comment: Supplemental ranges: <110 mg/dL before meals <200 mg/dL all other times of the day Blood specimen (specimen) 04/17/2013 7:37 AM EDT 04/17/2013 7:37 AM EDT Freddy Mejias MD POINT OF CARE TEST O RDERABLES Performing Organization Address [facility]/ZIP Co de Phone Number CERNER DIEGOENNIUM * EKG 12 Lead (04/17/2013 7:21 AM EDT) Ventricular rate 49 BPM MUSE SYSTEM Atrial Rate 49 BPM MUSE SYSTEM P-R Interval 150 ms MUSE SYSTEM QRS Duration 88 ms MUSE SYSTEM Q-T Interval 460 ms MUSE SYSTEM QTC Calculated (Bezet) 415 ms MUSE SYSTEM Calculated P [place] 41 degrees MUSE SYSTEM Calculated R [place] 63 degrees MUSE SYSTEM Calculated T [place] 139 degrees MUSE SYSTEM INTERPRETATION Marked sinus [...] Reed MD ECG ORDERABLES Performing Organization Address [facility] de Phone Number MUSE SYSTEM [...] intervals supplied above were not validated at [facility]. Results from pediatric patients should be interpreted [...] ORDERABLE S Performing Organization Address [facility] de Phone Number [facility] * POCT Glucose (04/16/2013 8:26 PM EDT) Glucose, POC 130 60 - 199 mg/dL [facility] Comment: Supplemental ranges: <110 mg/dL before meals <200 mg/dL all other times of the day Blood specimen (specimen) 04/16/2013 8:26 PM EDT 04/16/2013 8:26 PM EDT Freddy Mejias MD POINT OF CARE TEST O RDERABLES Performing Organization Address [facility] de Phone Number [facility] * POCT Glucose (04/16/2013 4:35 PM EDT) Glucose, POC 101 60 - 199 mg/dL [facility] Comment: Supplemental ranges: <110 mg/dL before meals <200 mg/dL all other times of the day Blood specimen (specimen) 04/16/2013 4:35 PM EDT 04/16/2013 4:35 PM EDT Freddy Mejias MD POINT OF CARE TEST O RDERABLES Performing Organization Address [facility] de Phone Number [facility] * EKG 12 Lead (04/16/2013 1:16 PM EDT) Ventricular rate 55 BPM MUSE SYSTEM Atrial Rate 55 BPM MUSE SYSTEM QRS Duration 76 ms MUSE SYSTEM Q-T Interval 458 ms MUSE SYSTEM QTC Calculated (Bezet) 438 ms MUSE SYSTEM Calculated P [place] 91 degrees MUSE SYSTEM Calculated R [place] 61 degrees MUSE SYSTEM Calculated T [place] 96 degrees MUSE SYSTEM INTERPRETATION Sinus bradycardia ST & T wave abnormality, consider anterolateral ischemia Abnormal ECG When compared with ECG of 15-APR-2013 12:49, T wave inversion less evident in Lateral leads Confirmed by MD WILBER, SERGO ([id number]) on 04/17/2013 9:58:29 PM MUSE SYSTEM 04/16/2013 1:16 PM EDT 04/17/2013 9:58 PM EDT Sergo Goins MD ECG ORDERABLES Performing Organization Address City/[facility]/ZIP Co de Phone Number MUSE SYSTEM * Cardiac Enzymes (04/16/2013 12:00 PM EDT) Pathologist [facility] Troponin-T <0.03 <=0.03 ng/mL [facility] Project [facility] Comment: 0.03 ng/mL: Represents the 99th percentile upper reference limit for normals. >0.03 ng/mL: Elevated cardiac troponin T level indicative of myocardial damage. Diagnosis of acute, evolving or recent [place] requires a typical rise and gradual fall [...] consensus document of the Joint Society of Cardiology/[place] College of Cardiology Committee for the redefinition of myocardial infarction. Journal of the [place] College of Cardiology 2000; 36: 959-969] Creatine Kinase 39 0 - 160 unit/L [facility] [place] [facility] Blood specimen (specimen) 04/16/2013 12:00 PM EDT 04/16/2013 12:05 PM EDT Narrative Resulting Agency Comment Spec In Lab Freddy Mejias MD CHEMISTRY ORDERABLES Performing Organization Address City/[facility]/ZIP Co de Phone Number [facility] [employer] * Echocardiogram Transthoracic(Leb) (04/16/2013 10:11 AM EDT) Pathologist [facility] EF 60 HEARTLAB SYSTEM Anatomical Region Laterality Modality Other 04/16/2013 Narrative 04/16/2013 10:37 AM EDT Procedure: ? Transthoracic Echocardiogram Patient: ? CARBINO JEANNIE L ?(Age): 1960(52) Med Rec#: ?[id number] ? Sex: ?F ? Site Loc: ?[facility] ? Ht / Wt: ??163(cm)/115(kg) Pt. Loc: ? Adult Floor ?BSA: ?2.28 Study Date: ?04/16/2013 ? Pt. Type: Inpatient Tape: ? Referring: Tavon Reed Financial Economist: Dereck Diaz Diagnosis:CPT Code(s): ??Echo Full (60303), ??Spectral Doppler (62885), Color Doppler (38492), ??Optison (58073UV), ??Spectral Doppler (18859), Color Doppler (69479), ??Definity ([id number]), ??Echo Full (26699), Indication(s): ??Angina Rhythm: HR ?BP ?134/69 ?? [...] ? Mid-Inferior ?Normal ? Mid-Inferoseptal ?Normal ? [place]-Septal ? Normal ? [place]-Anterior ? Normal ? [place]-Lateral ?Normal ? [place]-Inferior ? Normal ? [place]-Tip ?Normal ? Chambers ?Value ?Units (Range) ? [...] 04/16/2013 10:36:51 Images reviewed and interpretation verified [facility] Cardiac Ultrasound Laboratory Procedure Note Chalino Gomez MD - 04/16/2013 Procedure: Transthoracic Echocardiogram Patient: APOLINAR SHAY(Age): 1960(52) Med Rec#: [id number] Sex: F Site Loc: [facility] Ht / Wt: 163(cm)/115(kg) Pt. Loc: Adult Floor BSA: 2.28 Study Date: 04/16/2013 Pt. Type: Inpatient Tape: Referring: Tavon Reed Financial Economist: Dereck Diaz Diagnosis:CPT Code(s): Echo Full (70168), Spectral Doppler (63357), Color Doppler (61827), Optison (58554FQ), Spectral Doppler (79820), Color Doppler (92355), Definity ([id number]), Echo Full (19188), Indication(s): Angina Rhythm: HR BP 134/69 SUMMARY: [...] Normal Mid-Posterolateral Normal Mid-Inferior Normal Mid-Inferoseptal Normal [place]-Septal Normal [place]-Anterior Normal [place]-Lateral Normal [place]-Inferior Normal [place]-Tip Normal Chambers Value Units (Range) IVSd 2D [...] 04/16/2013 10:36:51 Images reviewed and interpretation verified [facility] Cardiac Ultrasound Laboratory Tavon Reed MD ECHO [...] intervals supplied above were not validated at [facility]. Results from pediatric patients should be interpreted [...] ORDERABLE S Performing Organization Address [facility] de Phone Number [facility] SALAZAR [...] MD HEMATOLOGY ORDERABLE S Performing Organization Address [facility] de Phone Number [facility] MONTANOIUM * Prothrombin Time (04/16/2013 4:07 AM EDT) Prothrombin Time 13.2 12.0 - 15.0 sec CERNER MILLENNIUM Comment: [facility] Transfusion Committee Guidelines: INR less than [...] ORDERABLE S Performing Organization Address [facility] de Phone Number [facility] SALAZAR [...] ORDERABLE S Performing Organization Address [facility] de Phone Number [facility] * POCT Glucose (04/15/2013 8:50 PM EDT) Glucose, POC 127 60 - 199 mg/dL [facility] Comment: Supplemental ranges: <110 mg/dL before meals <200 mg/dL all other times of the day Blood specimen (specimen) 04/15/2013 8:50 PM EDT 04/15/2013 8:50 PM EDT Freddy Mejias MD POINT OF CARE TEST O RDERABLES Performing Organization Address [facility] Phone Number [facility] * (ABNORMAL) APTT (04/15/2013 5:00 PM EDT) Partial Thromboplastin Time 108(H) 25 - 35 sec [facility] Comment: Recommended therapeutic PTT range for full dose unfractionated heparin is 80-114 seconds. Blood specimen (specimen) 04/15/2013 5:00 PM EDT 04/15/2013 11:16 PM EDT Narrative Resulting Agency Comment Spec In Lab Freddy Mejias MD HEMATOLOGY ORDERABLE S Performing Organization Address [facility] Phone Number [facility] * POCT Glucose (04/15/2013 3:54 PM EDT) Glucose, POC 133 60 - 199 mg/dL [facility] Comment: Supplemental ranges: <110 mg/dL before meals <200 mg/dL all other times of the day Blood specimen (specimen) 04/15/2013 3:54 PM EDT 04/15/2013 3:54 PM EDT Freddy Mejias MD POINT OF CARE TEST O RDERABLES Performing Organization Address [facility] de Phone Number [facility] * EKG 12 Lead (04/15/2013 12:49 PM EDT) Ventricular rate 43 BPM MUSE SYSTEM Atrial Rate 43 BPM MUSE SYSTEM P-R Interval 156 ms MUSE SYSTEM QRS Duration 84 ms MUSE SYSTEM Q-T Interval 508 ms MUSE SYSTEM QTC Calculated (Bezet) 429 ms MUSE SYSTEM Calculated P [place] 42 degrees MUSE SYSTEM Calculated R [place] 36 degrees MUSE SYSTEM Calculated T [place] 146 degrees MUSE SYSTEM INTERPRETATION Marked sinus [...] * POCT Glucose (04/15/2013 11:27 AM EDT) [facility] Glucose, POC 99 60 - 199 mg/dL [facility] Comment: Supplemental ranges: <110 mg/dL before meals <200 mg/dL all other times of the day Blood specimen (specimen) 04/15/2013 11:27 AM EDT 04/15/2013 11:27 AM EDT Freddy Mejias MD POINT OF CARE TEST O RDERABLES Performing Organization Address City/[facility]/ZIP Co de Phone Number [facility] Mod[facility] * Cardiac Enzymes (04/15/2013 10:28 AM EDT) [facility] Troponin-T <0.03 <=0.03 ng/mL [facility] Comment: 0.03 ng/mL: Represents the 99th percentile upper reference limit for normals. >0.03 ng/mL: Elevated cardiac troponin T level indicative of myocardial damage. Diagnosis of acute, evolving or recent [place] requires a typical rise and gradual fall [...] consensus document of the Joint Society of Cardiology/[place] College of Cardiology Committee for the redefinition of myocardial infarction. Journal of the [place] College of Cardiology 2000; 36: 959-969] Creatine Kinase 47 0 - 160 unit/L [facility] Blood specimen (specimen) 04/15/2013 10:28 AM EDT 04/15/2013 10:37 AM EDT Narrative Resulting Agency Comment Spec In Lab Tavon Reed MD CHEMISTRY ORDERABLES Performing Organization Address City/[facility]/ZIP Co de Phone Number [facility] [employer] * (ABNORMAL) APTT (04/15/2013 10:28 AM EDT) Partial Thromboplastin Time 66(H) 25 - 35 sec [facility]ELSE[facility] CORTEZJUANAIUM Comment: Recommended therapeutic PTT range for full dose unfractionated heparin is 80-114 seconds. Blood specimen (specimen) 04/15/2013 10:28 AM EDT 04/15/2013 10:37 AM EDT Narrative Resulting Agency Comment Spec In Lab Freddy Mejias MD HEMATOLOGY ORDERABLE S Performing Organization Address [facility] Co de Phone Number [facility] CORTEZHubHuman * XR chest routine PA & lateral [...] Glucose, POC 108 60 - 199 mg/dL [facility] [employer] Comment: Supplemental ranges: <110 mg/dL before meals <200 mg/dL all other times of the day Blood specimen (specimen) 04/15/2013 7:59 AM EDT 04/15/2013 7:59 AM EDT Freddy Mejias MD POINT OF CARE TEST O RDERABLES Performing Organization Address [facility] Co de Phone Number [facility] Project TalentsBANNER B[facility]WOOD [facility] CENTERClouli * EKG 12 Lead (04/15/2013 7:17 AM EDT) Ventricular rate 57 BPM MUSE SYSTEM Atrial Rate 57 BPM MUSE SYSTEM P-R Interval 148 ms MUSE SYSTEM QRS Duration 82 ms MUSE SYSTEM Q-T Interval 474 ms MUSE SYSTEM QTC Calculated (Bezet) 461 ms MUSE SYSTEM Calculated P [place] 41 degrees MUSE SYSTEM Calculated R [place] 54 degrees MUSE SYSTEM Calculated T [place] 123 degrees MUSE SYSTEM INTERPRETATION Sinus bradycardia [...] Goins MD ECG ORDERABLES Performing Organization Address [facility] Co de Phone Number [...] 4:54 AM EDT) Troponin-T <0.03 <=0.03 ng/mL [facility] Comment: 0.03 ng/mL: Represents the 99th percentile upper reference limit for normals. >0.03 ng/mL: Elevated cardiac troponin T level indicative of myocardial damage. Diagnosis of acute, evolving or recent [place] requires a typical rise and gradual fall [...] consensus document of the Joint Society of Cardiology/[place] College of Cardiology Committee for the redefinition of myocardial infarction. Journal of the [place] College of Cardiology 2000; 36: 959-969] Creatine Kinase 36 0 - 160 unit/L [facility] Blood specimen (specimen) 04/15/2013 4:54 AM EDT 04/15/2013 5:33 AM EDT Narrative Resulting Agency Comment Spec In Lab Tavon Reed MD CHEMISTRY ORDERABLES [facility] * Hemoglobin A1c (04/15/2013 4:54 AM EDT) Hemoglobin A1c 6.1 4.3 - 6.1 % [facility] Comment: The [place] Diabetes Association (ADA) has stated that HbA1c [...] 2013:36;suppl 1:S11-S66. Estimated Average Glucose 128 mg/dL [facility] Comment: eAG equivalents for HbA1c percentages: [...] into estimated average glucose values. ??Diabetes Care 2008:31(8):4924-2450. Blood specimen (specimen) 04/15/2013 4:54 AM EDT 04/15/2013 5:33 AM EDT Narrative Resulting Agency Comment Spec In Lab Tavon Reed MD CHEMISTRY ORDERABLES [facility] * (ABNORMAL) Lipid panel (fasting) (04/15/2013 4:54 AM EDT) Cholesterol, Total 159 <=199 mg/dL [facility] Comment: Recommendations of the NCEP Adult Treatment Panel for the following risk cutoff thresholds for the [place] population: Desirable: <200 mg/dL Borderline High: 200-239 mg/dL High: > or = 240 mg/dL Triglyceride 138 <=149 mg/dL [facility] Comment: Reference Range: Normal triglycerides: ??<150 mg/dL Borderline high: ??150-199 mg/dL High: ??200-499 mg/dL Very high: ??>gj=650 mg/dL KIP 2001; 285(19):9604-9519 HDL Cholesterol 30(L) >=40 mg/dL [facility] Comment: Reference range: ??Low HDL: ?? < 40 mg/dL ??Normal: ?40-60 mg/dL ??Desirable: > 60 mg/dL KIP 2001; 285(19):1014-6832 LDL Cholesterol 101(H) <=99 mg/dL [facility] Comment: Reference range: ?? Optimal: ?<100 mg/dL ?? Near Optimal/Above Optimal: ?? 100-129 mg/dL ?? Borderline high: ?130-159 mg/dL ?? High: ? 160-189 mg/dL ?? Very high: ?>rl=984 mg/dL KIP 2001: 285(19):6057-6901 Cholesterol/HDL Ratio 5.3 ratio CERNER MILLENNIUM Comment: A Cholesterol to HDL ratio below 4:1 is desirable. ??Studies suggest that increased CAD risk occurs at ratios above 5 for females and above 6 for men. ? [place] Heart Association ??(http://www.americanheart.org) ? Sadie Int Med, [...] Narrative Resulting Agency Comment Spec In Lab aTvon Reed MD CHEMISTRY ORDERABLES Performing Organization Address City/[facility]/ZIP Co de Phone Number CHI MONTANOIUM [...] Reed MD CHEMISTRY ORDERABLES Performing Organization Address [facility] de Phone Number CHI SALAZAR * (ABNORMAL) APTT (04/15/2013 4:53 AM EDT) Partial Thromboplastin Time 62(H) 25 - 35 sec [facility] Comment: Recommended therapeutic PTT range for full dose unfractionated heparin is 80-114 seconds. Blood specimen (specimen) 04/15/2013 4:53 AM EDT 04/15/2013 5:33 AM EDT Narrative Resulting Agency Comment Spec In Lab Tavon Reed MD HEMATOLOGY ORDERABLE S Performing Organization Address [facility] Phone Number CHI SALAZAR * Prothrombin Time (04/15/2013 4:53 AM EDT) Prothrombin Time 12.9 12.0 - 15.0 sec CERNER MILLENNIUM Comment: [facility] Transfusion Committee Guidelines: INR less than 2.0, PTT less than OR equal to 43.5 seconds, or Fibrinogen greater than or equal to 100 mg/dl indicate adequate procoagulant activity for hemostasis in patients without underlying bleeding disorders. International Normalization Ratio 0.9 0.9 - 1.1 [facility] Blood specimen (specimen) 04/15/2013 4:53 AM EDT 04/15/2013 5:33 AM EDT Narrative Resulting Agency Comment Spec In Lab Tavon Reed MD HEMATOLOGY ORDERABLE S Performing Organization Address [facility] Co de Phone Number CHI SALAZAR * Prothrombin Time (04/15/2013 12:45 AM EDT) Prothrombin Time 13.7 12.0 - 15.0 sec CERNER MILLENNIUM Comment: [facility] Transfusion Committee Guidelines: INR less than [...] Narrative Resulting Agency Comment Spec In Lab aTvon Reed MD HEMATOLOGY ORDERABLE S Performing Organization Address [facility] Phone Number [facility] * APTT (04/14/2013 11:55 PM EDT) Partial Thromboplastin Time 28 25 - 35 sec [facility] Comment: Recommended therapeutic PTT range for full dose unfractionated heparin is 80-114 seconds. Blood specimen (specimen) 04/14/2013 11:55 PM EDT 04/15/2013 12:07 AM EDT Narrative Resulting Agency Comment Spec In Lab Tavon Reed MD HEMATOLOGY ORDERABLE S Performing Organization Address [facility] Phone Number [facility] * EKG 12 Lead (04/14/2013 10:59 PM EDT) Ventricular rate 65 BPM MUSE SYSTEM Atrial Rate 65 BPM MUSE SYSTEM P-R Interval 134 ms MUSE SYSTEM QRS Duration 86 ms MUSE SYSTEM Q-T Interval 424 ms MUSE SYSTEM QTC Calculated (Bezet) 440 ms MUSE SYSTEM Calculated P [place] 26 degrees MUSE SYSTEM Calculated R [place] 17 degrees MUSE SYSTEM Calculated T [place] 36 degrees MUSE SYSTEM INTERPRETATION Normal sinus rhythm with sinus arrhythmia T wave abnormality, consider anterior ischemia Abnormal ECG When compared with ECG of 14-APR-2013 22:57, (unconfirmed) No significant change was found Confirmed by MD NGHIA, JENNY ([id number]) on 04/16/2013 11:34:39 AM MUSE SYSTEM 04/14/2013 10:5 9 PM EDT 04/16/2013 11:34 AM EDT Tavon Reed MD ECG ORDERABLES Performing Organization Address [facility] Phone Number MUSE SYSTEM * EKG 12 Lead (04/14/2013 10:57 PM EDT) Ventricular rate 56 BPM MUSE SYSTEM Atrial Rate 56 BPM MUSE SYSTEM P-R Interval 144 ms MUSE SYSTEM QRS Duration 84 ms MUSE SYSTEM Q-T Interval 430 ms MUSE SYSTEM QTC Calculated (Bezet) 414 ms MUSE SYSTEM Calculated P [place] 25 degrees MUSE SYSTEM Calculated R [place] 22 degrees MUSE SYSTEM Calculated T [place] 41 degrees MUSE SYSTEM INTERPRETATION Sinus bradycardia with Sinus arrhythmia T wave abnormality, consider anterolateral ischemia Abnormal ECG Confirmed by MD AGRAWAL MARK ([id number]) on 04/16/2013 11:34:11 AM MUSE SYSTEM 04/14/2013 10:5 7 PM EDT 04/16/2013 11:34 AM EDT Tavon Reed MD ECG ORDERABLES Performing Organization Address [facility] de Phone Number MUSE SYSTEM * EKG 12 Lead (04/14/2013 10:56 PM EDT) Ventricular rate 53 BPM MUSE SYSTEM Atrial Rate 53 BPM MUSE SYSTEM P-R Interval 142 ms MUSE SYSTEM QRS Duration 74 ms MUSE SYSTEM Q-T Interval 420 ms MUSE SYSTEM QTC Calculated (Bezet) 394 ms MUSE SYSTEM Calculated P [place] 32 degrees MUSE SYSTEM Calculated R [place] 22 degrees MUSE SYSTEM Calculated T [place] 39 degrees MUSE SYSTEM INTERPRETATION Sinus bradycardia Sinus arrhythmia T wave abnormality, consider anterolateral ischemia Abnormal ECG Confirmed by MD AGRAWAL MARK ([id number]) on 04/16/2013 11:33:23 AM MUSE SYSTEM 04/14/2013 10:5 6 PM EDT 04/16/2013 11:33 AM EDT Freddy Mejias MD ECG ORDERABLES Performing Organization Address City/[facility] Co de Phone Number MUSE SYSTEM * POCT urine (04/14/2013 10:41 PM EDT) POC Urine HCG Negative Negative - Negative POC Control Internal Controls Acceptable Tavon Reed MD POINT OF CARE TEST O RDERABLES * POCT urine dipstick (04/14/2013 10:41 PM EDT) POC Sp [place] 1.010 1.002 - 1.030 POC pH, UA [...] ORDERABLE S Performing Organization Address [facility]/ZIP Co de Phone Number CHI MONTANOIUM [...] ORDERABLE S Performing Organization Address [facility] de Phone Number CHI SALAZAR * Cardiac Enzymes (04/14/2013 9:10 PM EDT) Troponin-T <0.03 <=0.03 ng/mL [facility] Comment: 0.03 ng/mL: Represents the 99th percentile upper reference limit for normals. >0.03 ng/mL: Elevated cardiac troponin T level indicative of myocardial damage. Diagnosis of acute, evolving or recent [place] requires a typical rise and gradual fall [...] consensus document of the Joint Society of Cardiology/[place] [employer] Committee for the redefinition of myocardial infarction. Journal of the [place] College of [employer] 2000; 36: 959-969] Creatine Kinase 49 0 - 160 unit/L [facility] MONTANOIUM Blood specimen (specimen) 04/14/2013 9:10 PM EDT 04/14/2013 9:14 PM EDT Narrative Resulting Agency Comment Spec In Lab Tavon Reed MD CHEMISTRY ORDERABLES Performing Organization Address [facility] de Phone Number CHI SALAZAR * Glucose, random (04/14/2013 9:10 PM EDT) Glucose 114 60 - 199 mg/dL [facility] Comment:Diabetes: >=200 mg/d L plus symptoms Blood specimen (specimen) 04/14/2013 9:10 PM EDT 04/14/2013 9:14 PM EDT Narrative Resulting Agency Comment Spec In Lab Tavon eRed MD CHEMISTRY ORDERABLES Performing Organization Address [facility] Co de Phone Number CHI SALAZAR * Creatinine (04/14/2013 9:10 PM EDT) Creatinine 0.78 0.70 - 1.20 mg/dL [facility] Comment: Please note that the pediatric reference intervals supplied above were not validated at [facility]. Results from pediatric patients should be interpreted in conjunction to the patient's age, height and muscle mass. Est Glomerular Filtration Rate >60 >=60 [facility] Comment: This estimated GFR (eGFR) value [...] Reed MD CHEMISTRY ORDERABLES Performing Organization Address [facility] Co de Phone Number CHI SALAZAR * BUN (04/14/2013 9:10 PM EDT) Blood Urea Nitrogen 16 8 - 18 mg/dL [facility] Blood specimen (specimen) 04/14/2013 9:10 PM EDT 04/14/2013 9:14 PM EDT Narrative Resulting Agency Comment Spec In Lab Tavon Reed MD CHEMISTRY ORDERABLES Performing Organization Address [facility] de Phone Number CERNER MILLENNIUM * Electrolytes [...] Reed MD CHEMISTRY ORDERABLES Performing Organization Address [facility] de Phone Number CERNER MILLENNIUM * EKG 12 Lead (04/14/2013 8:57 PM EDT) Ventricular rate 67 BPM MUSE SYSTEM Atrial Rate 67 BPM MUSE SYSTEM P-R Interval 140 ms MUSE SYSTEM QRS Duration 72 ms MUSE SYSTEM Q-T Interval 372 ms MUSE SYSTEM QTC Calculated (Bezet) 393 ms MUSE SYSTEM Calculated P [place] 44 degrees MUSE SYSTEM Calculated R [place] 36 degrees MUSE SYSTEM Calculated T [place] 48 degrees MUSE SYSTEM INTERPRETATION Sinus rhythm with Premature atrial complexes ST & T wave abnormality, consider anterior ischemia Abnormal ECG When compared with ECG of 09-APR-2013 14:24, Premature atrial complexes are now Present Confirmed by MD NGHIA, JENNY ([id number]) on 04/16/2013 11:04:11 AM MUSE SYSTEM 04/14/2013 8:57 PM EDT 04/16/2013 11:04 AM EDT Freddy Mejias MD ECG ORDERABLES Performing Organization Address [facility] Co de Phone Number MUSE SYSTEM documented in this encounter Visit Diagnoses Not on filedocumented in this encounter Administered Medications Inactive Administered Medications - up to 3 most recent administrations Medication Order MAR Action Action Date Dose Rate Site bivalirudin (ANGIOMAX) 250 mg in sodium chloride 0.9% 50 mL infusion (FARM EQUIPMENT ENGINE MECHANIC) CONTINUOUS PRN, Starting on Tue04/16/13 at 1054, [...] SBP<100, Routine 1617 (Given - Provider: Rocio Garrison, FABIANA) 0925 (Given - Provider: Margarita [...] than 145 sec X 2 - call dry house attendant See Bolus dosing guidance for aPTT [...] Jazmin Esparza RN)1250 (Restarted - Provider: Cristobal Cuellar [...] in sodium chloride 0.9% 50 mL infusion (FARM EQUIPMENT ENGINE MECHANIC) (CANCELED) CONTINUOUS PRN, Starting on Tue04/16/13 at [...] Cristobal Cuellar RN)1451 (Given - Provider: Cristobal Cuellar RN) nitroGLYcerin (NITROSTAT) SL tablet 0.4 mg [...] Patch documented in this encounter Care Teams Pretzel Packer Relationship Specialty Start Date End Date Adriana Perla APRN [address] [place] [address] PCP - General 06/16/10 06/27/18 documented as of this encounter
--- OUTSIDE RECORDS SUMMARY | 2024-08-07 14:16 | XMS_ITS | Encounter Summary ---
[place] [address] Care Team Providers Care Data Entry Email Processor Name Role Phone Aman Lawrence APRN Primary Care Provider [phone] Encounter Details Date Type Department Care Team (Latest Contact Info) Description 11/20/2010 1:44 PM EDT - 11/20/2010 7:55 PM EDT Hospital En[place] [phone] Skinny Gomez MD Discharge Disposition: Home Social [...] vitamins (B COMPLEX-VITAMIN B12) tablet 09/23/2010 11/19/2016 ymiifsshjgah-muuo-stft rals (COMPLETE MULTIVITAMIN) Tab tablet 1 Tablet(s), PO, Once daily 09/23/2010 11/19/2016 calcium citrate-vitamin D (CITRACAL+D) 315-200 mg-unit per tablet 2 Tablet(s), PO, Twice daily 09/23/2010 11/19/2016 ergocalciferol (VITAMIN D) 50,000 unit capsule [id number], PO, TWICE a week 09/23/2010 11/19/2016 documented as of this encounter Miscellaneous Notes * Miscellaneous - Provider, Scanning - 11/20/2010 4:02 PM EDT documented in this encounter Plan of Treatment Not on file documented as of this encounter Visit Diagnoses Not on filedocumented in this encounter Care Teams Data Entry Email Processor Relationship Specialty Start Date End Date Aman Lawrence APRN [address] [place] [address] PCP - General 06/16/10 06/27/18 documented as of this encounter
--- OUTSIDE RECORDS SUMMARY | 2024-08-07 14:16 | XMS_ITS | Encounter Summary ---
Author Organization [facility] [place] [address] Care Team Providers Care Cook Helper Preserves Name Role Phone Yisel Marroquin MD Primary Care Provider Unavail able Encounter Details Date Type Department Care Team (Late st Contact Info) Description 11/14/2012 Orders Only Radiology and Cardiology Results [address] [place] [address] Apd Conversion, Results Provider, Social [...] 116.9 [address] CONVERSION Hemoglobin A1c 6.1(Control System Computer Scientist al Lab) 4.5 - 6.2 [address] DAY CONVERSION 11/14/2012 Results Provider Apd Conversion MD JASON ESTRELLA ORDERABLES [address] [employer] CONVERSION documented in this encounter Visit Diagnoses Not on filedocumented in this encounter Care Teams Cook Helper Preserves Relationship Specialty Start Date End Date Yisel Marroquin MD PCP - General 11/13/18 03/05/19 documented as of this encounter
--- OUTSIDE RECORDS SUMMARY | 2024-08-07 14:16 | XMS_ITS | Encounter Summary ---
[place] [address] Care Team Providers Care Automation Qa Tester Name Role Phone Yisel Marroquin MD Primary Care Provider Unavail able Encounter Details Date Type Department Care Team (Late st Contact Info) Description 03/08/2012 Orders Only Radiology and Cardiology Results [address] [place] [address] Apd Conversion, Results Provider, Social [...] on filedocumented in this encounter Care Teams Automation Qa Tester Relationship Specialty Start Date End Date Yisel Marroquin MD PCP - General 11/13/18 03/05/19 documented as of this encounter
--- OUTSIDE RECORDS SUMMARY | 2024-08-07 14:16 | XMS_ITS | Encounter Summary ---
Author Organization [facility] Address [facility] [place] [address] Care Team Providers Care Wireworker Name Role Phone Aman Lawrence APRN Primary Care Provider [phone] Encounter Details Date Type Department Care Team (Latest Contact Info) Description 12/04/2010 11:46 AM EDT - 12/04/2010 8:23 PM EDT Hospital En[place] [phone] Skinny Gomez MD Trus, Thadeus L, MD [facility] [place] [address] Discharge Disposition: Home Social History Tobacco Use [...] vitamins (B COMPLEX-VITAMIN B12) tablet 09/23/2010 11/19/2016 jafhnlkmkqwe-eklf-tjmj rals (COMPLETE MULTIVITAMIN) Tab tablet 1 Tablet(s), PO, Once daily 09/23/2010 11/19/2016 calcium citrate-vitamin D (CITRACAL+D) 315-200 mg-unit per tablet 2 Tablet(s), PO, Twice daily 09/23/2010 11/19/2016 ergocalciferol (VITAMIN D) 50,000 unit capsule [id number], PO, TWICE a week 09/23/2010 11/19/2016 documented [...] RN) documented in this encounter Care Teams Wireworker Relationship Specialty Start Date End Date Aman Lawrence APRN [address] [place] [place] [address] PCP - General 06/16/10 06/27/18 documented as of this encounter
--- OUTSIDE RECORDS SUMMARY | 2024-08-07 14:16 | XMS_ITS | Encounter Summary ---
Author Organization Formerly [facility] [place] [address] Care Team Providers Care Landscape Drafter Name Role Phone Adriana Perla APRN Primary Care Provider [phone] Reason for Referral * Rehabilitation (Routine) - Closed Specialty Diagnoses / Procedures Referred By Vanita dimas Referred To Contact Cardiology Diagnoses Unstable angina Freddy Mejias MD [facility] [place] [address] [facility] [place] [address] Referral ID Status Reason Start Date Expiration Date V isits Requested Visits Authorized [id number] Closed Evaluate and Treat 04/17/2013 10/14/2013 1 1 Reason for Visit * Reason Comments Chest Pain Encounter Details Date Type Department Care Team (Latest Contact Info) Description 04/14/2013 11:39 PM EDT - 04/17/2013 3:43 PM EDT Hospital Encounter Intermediate [place] [id number] Tavon Reed MD [facility] [place] [address] Freddy Mejias MD [facility] [place] [address] Unstable angina; Chronic pain Discharge Disposition: Home [...] 2PM Dr. Stephanie Osman 5 / [place] [address] May 10, 8:10AM Ambrosio Maloney, Cardiology [facility] Your Primary Care Provider: ADRIANA PERLA, ENTRY EXAMINER [address] / [place] [address] For questions regarding this document or issues relating to this hospitalization on the Medical Service, please contact your inpatient physician through the [facility] Captain Of Guards . Issues afterhours and on weekends will be handled by the Hospitalist staff on-call. * Attachments The following attachments cannot be sent through Care Everywhere. * PERCUTANEOUS CORONARY INTERVENTION: WHAT TO EXPECT AT HOME (SAMI) documented in this encounter Medications at Time [...] vitamins (B COMPLEX-VITAMIN B12) tablet 09/23/2010 11/19/2016 ntyxldmxqgow-jpmh-pbg erals (COMPLETE MULTIVITAMIN) Tab tablet 1 Tablet(s), PO, Once daily 09/23/2010 11/19/2016 calcium citrate-vitamin D (CITRACAL+D) 315-200 mg-unit per tablet 2 Tablet(s), PO, Twice daily 09/23/2010 11/19/2016 ergocalciferol (VITAMIN D) 50,000 unit capsule [id number], PO, TWICE a week 09/23/2010 11/19/2016 documented as of this encounter Progress Notes * Margarita Sharma RN - 04/17/2013 3:37 PM EDT 1540- Discharge orders available. Pt and student career development specialist given discharge AVS, discharge summary, percutaneous intervention care instructions, medication information, diabetes tool kit and nutrition information via verbal and written communication. 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 Recommend a daily multivitamin [...] at this time. Andres Good, PT Beeper# [id number] * Freddy Mjeias MD - 04/17/2013 5:23 AM EDT Inpatient [...] FULL CODE (DPOA: Rae, elder sister) Breanna Smoers DO (PGY-1) Internal Medicine Resident Pager [phone] [...] tomorrow as appropriate. Andres Good PT Beeper# [id number] * Jeremy Radford OT - 04/16/2013 10:24 AM EDT Chart reviewed and orders received. Patient at label fuser tender this morning. RN reports patient mobilizingwell and able to perform own ADLS. We will monitor and f/u as needed for evaluation. Jeremy Radford OTR/L [id number] * Freddy Mejias MD - 04/16/2013 6:10 [...] Somers DO (PGY-1) Internal Medicine Resident Pager [phone] STAFF ADDENDUM Patient interviewed and examined. Medical [...] tablets and recommended she follow-up with a Framing Consultant. This appointment was scheduled for 04/19 (5 [...] with 325mg of Aspirin in route to [facility]. While in the ED, she had another [...] 05/12/00 Open cholecystectomy ~1991 CHIP/BSO 1985 in [place] for ovarian cyst Complete dental extractions 1998 [...] Social history: , no children. Lives in [place]. 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 Smoking: Active smoker, 2ppd Alcohol: Prior alcoholic, [...] story is co ncerning for a Type-I [place]. I suspect she will need a Cardiac [...] Rae, elder sister) Kasia Anthony, PGY-2 Pager [phone] STAFF ADDENDUM Patient interviewed and examined. Medical [...] 04/18/2013 1:04 PM EDTAssociated Order(s): SCAN DOC: MARRIAGE AND FAMILY TEACHER * Provider, Scanning - 04/16/2013 4:59 PM EDTAssociated Order(s): CARDIAC CATHETERIZATION * Cydney Mccurdy - 04/16/2013 11:59 AM EDTAssociated Order(s): CARDIAC CATHETERIZATION documented in this encounter ED Notes * Donna Saunders RN - 04/15/2013 12:19 AM EDT Awaiting transfer to [facility]. * Donna Saunders RN - [...] has arragned for her to see a neonatal social worker this coming . She comes in tonight [...] Score for ED patients with possible ACS, ([facility] 2009February 03:182(10):3629-80): 1) Age >= 65 years? +1 2) [...] of 19%. Score: 14-day triple point (mortality, [place], revascularization) 0 1.8% 1 4.0% 2 8.3% [...] to their service. Tavon Reed MD 04/14/13 2841 Recent Results (from the past 24 hour(s)) [...] URINE DIPSTICK Component Value Range POC Sp [place] 1.010 1.002 - 1.030 POC pH, UA [...] tablets and recommended she follow-up with a Framing Consultant. This appointment was scheduled for 04/19 (5 [...] with 325mg of Aspirin in route to [facility]. While in the ED, she had another [...] complex vitamins (B COMPLEX-VITAMIN B12) tablet Oral bixxsduyjkyf-ekri-rjqafhve (COMPLETE MULTIVITAMIN) Tab tablet 1 Tablet(s), PO, Once daily, Oral calcium citrate-vitamin D (CITRACAL+D) 315-200 mg-unit per tablet 2 Tablet(s), PO, Twice daily, Oral ergocalciferol (VITAMIN D) 50,000 unit capsule [id number], PO, TWICE a week, Oral varenicline (CHANTIX) [...] Dr. Stephanie Osman [address] [place] [address] May 10, 8:10AM Ambrosio Maloney, Cardiology [facility] 4A Your Primary Care Provider: [address] / [place] [address] For questions regarding this document or issues relating to this hospitalization on the Medical Service, please contact your inpatient physician through the [facility] Captain Of [employer] . Issues afterhours and on weekends will be handled by the Hospitalist staff on-call. General Instructions None Future Appointments and Orders Future Appointments: Provider: Department: Dept Phone: Center: 05/03/2013 1:30 PM [facility] Cardiac Rehab Prog Non-Invasive Cardiology Lab [phone] None 05/10/2013 8:10 AM Freddy Mejias MD Cardiology [phone] [facility] Joint Appt Nurse One Cardiology Intake, AFBIANA LYONS 4A [phone] [facility] Future Orders Please Complete By Expires Referral to Cardiac Rehab [[id number] Custom] Process Instructions: If no progress note charted, please enter Clinical details in comments. Scheduling Instructions: Comments: Cardiac rehab at [facility] Questions: Responses: Reason for referral Angina, PCI Provider Contact Information: [place] [address] Discharge References/Attachments: Discharge References/Attachments PERCUTANEOUS CORONARY INTERVENTION: WHAT TO EXPECT AT HOME (SAMI) Signed: Jefe Sharma, PGY-3 DATE: 04/19/13 * [...] parameters for home exercise. Phase II Referral: [facility], intake 05/03 at 1:30 Activity Summary: By [...] Breath sounds are distant, but clear. On teletypesetter monitor she is in NSR no ectopy. [...] Procedure Name Priority Date/Time Associated Diagnosis Comments MARRIAGE AND FAMILY TEACHER SCAN 04/18/2013 1:04 PM EDT CARDIAC CATHETERIZATION [...] Routine 04/16/2013 1:16 PM EDT CARDIAC ENZYMES ([facility]/CGP) STAT 04/16/2013 12:00 PM EDT ECHOCARDIOGRAM TRANSTHORACIC [...] Routine 04/15/2013 11:27 AM EDT CARDIAC ENZYMES ([facility]) Routine 04/15/2013 10:28 AM EDT APTT STAT 04/15/2013 10:28 AM EDT XR CHEST PA AND LATERAL Routine 04/15/20 13 8:31 AM EDT POCT GLUCOSE Routine 04/15/2013 7:59 AM EDT EKG 12-LEAD Routine 04/15/2013 7:17 AM EDT Unstable angina XR CHEST PA AND LATERAL STAT 04/15/20 13 5:07 AM EDT CARDIAC ENZYMES ([facility]) Routine 04/15/2013 4:54 AM EDT TSH Routine [...] in this encounter Results * SCAN DOC: MARRIAGE AND FAMILY TEACHER (04/18/2013 1:04 PM EDT) Anatomical Region Laterality [...] Glucose, POC 138 60 - 199 mg/dL [facility] Comment: Supplemental ranges: <110 mg/dL before meals <200 mg/dL all other times of the day Blood specimen (specimen) 04/17/2013 11:50 AM EDT 04/17/2013 11:50 AM EDT Freddy Mejias MD POINT OF CARE TEST O RDERABLES [facility] * (ABNORMAL) Hemoglobin (04/17/2013 11:13 AM EDT) Hemoglobin 10.2(L) 11.2 - 15.7 gm/dL [facility] Blood specimen (specimen) 04/17/2013 11:13 AM EDT 04/17/2013 11:27 AM EDT Narrative Resulting Agency Comment Spec In Lab Freddy Mejias MD HEMATOLOGY ORDERABLE S Performing Organization Address [facility] Co de Phone Number [facility] * POCT Glucose (04/17/2013 7:37 AM EDT) Pathologist [facility] Glucose, POC 95 60 - 199 mg/dL [facility] Comment: Supplemental ranges: <110 mg/dL before meals <200 mg/dL all other times of the day Blood specimen (specimen) 04/17/2013 7:37 AM EDT 04/17/2013 7:37 AM EDT Freddy Mejias MD POINT OF CARE TEST O RDERABLES Performing Organization Address [facility] de Phone Number [facility] * EKG 12 Lead (04/17/2013 7:21 AM EDT) Ventricular rate 49 BPM MUSE SYSTEM Atrial Rate 49 BPM MUSE SYSTEM P-R Interval 150 ms MUSE SYSTEM QRS Duration 88 ms MUSE SYSTEM Q-T Interval 460 ms MUSE SYSTEM QTC Calculated (Bezet) 415 ms MUSE SYSTEM Calculated P [place] 41 degrees MUSE SYSTEM Calculated R [place] 63 degrees MUSE SYSTEM Calculated T [place] 139 degrees MUSE SYSTEM INTERPRETATION Marked sinus [...] Reed MD ECG ORDERABLES Performing Organization Address [facility] Co de Phone Number MUSE SYSTEM * (ABNORMAL) Differential, Automated (04/17/2013 3:51 AM EDT) Pathologist [facility] Neutrophil % 75.0(H) 34.0 - 71.0 % [...] EDT Tavon Reed MD HEMATOLOGY ORDERABLE S [facility] * (ABNORMAL) Basic Metabolic Panel (non-fasting) (04/17/2013 3:51 AM EDT) Glucose 102 60 - 199 mg/dL [facility] Comment:Diabetes: >=200 mg/d L plus symptoms Blood Urea Nitrogen 9 8 - 18 mg/dL [facility] Creatinine 0.61(L) 0.70 - 1.20 mg/dL [facility] Comment: Please note that the pediatric reference intervals supplied above were not validated at [facility]. Results from pediatric patients should be interpreted [...] Platelet Volume 10.6 9.0 - 12.0 fL [facility] Blood specimen (specimen) 04/17/2013 3:51 AM EDT 04/17/2013 5:10 AM EDT Narrative Resulting Agency Comment Spec In Lab Tavon Reed MD HEMATOLOGY ORDERABLE S Performing Organization Address [facility]/ZIP Co de Phone Number [facility] * POCT Glucose (04/16/2013 8:26 PM EDT) Glucose, POC 130 60 - 199 mg/dL [facility] Comment: Supplemental ranges: <110 mg/dL before meals <200 mg/dL all other times of the day Blood specimen (specimen) 04/16/2013 8:26 PM EDT 04/16/2013 8:26 PM EDT Freddy Mejias MD POINT OF CARE TEST O RDERABLES [facility] * POCT Glucose (04/16/2013 4:35 PM EDT) Glucose, POC 101 60 - 199 mg/dL [facility] Comment: Supplemental ranges: <110 mg/dL before meals <200 mg/dL all other times of the day Blood specimen (specimen) 04/16/2013 4:35 PM EDT 04/16/2013 4:35 PM EDT Freddy Mejias MD POINT OF CARE TEST O RDERABLES Performing Organization Address [facility] Co de Phone Number [facility] * EKG 12 Lead (04/16/2013 1:16 PM EDT) Pathologist [facility] Ventricular rate 55 BPM MUSE SYSTEM Atrial Rate 55 BPM MUSE SYSTEM QRS Duration 76 ms MUSE SYSTEM Q-T Interval 458 ms MUSE SYSTEM QTC Calculated (Bezet) 438 ms MUSE SYSTEM Calculated P [place] 91 degrees MUSE SYSTEM Calculated R [place] 61 degrees MUSE SYSTEM Calculated T [place] 96 degrees MUSE SYSTEM INTERPRETATION Sinus bradycardia ST & T wave abnormality, consider anterolateral ischemia Abnormal ECG When compared with ECG of 15-APR-2013 12:49, T wave inversion less evident in Lateral leads Confirmed by MD WILBER, SERGO ([id number]) on 04/17/2013 9:58:29 PM MUSE SYSTEM 04/16/2013 1:16 PM EDT 04/17/2013 9:58 PM EDT Sergo Goins MD ECG ORDERABLES Performing Organization Address [facility] Co de Phone Number MUSE SYSTEM * Cardiac Enzymes (04/16/2013 12:00 PM EDT) [facility] Troponin-T <0.03 <=0.03 ng/mL [facility] Comment: 0.03 ng/mL: Represents the 99th percentile upper reference limit for normals. >0.03 ng/mL: Elevated cardiac troponin T level indicative of myocardial damage. Diagnosis of acute, evolving or recent [place] requires a typical rise and gradual fall [...] consensus document of the Joint Society of Cardiology/[place] College of Cardiology Committee for the redefinition of myocardial infarction. Journal of the [place] College of Cardiology 2000; 36: 959-969] Creatine Kinase 39 0 - 160 unit/L [facility] Blood specimen (specimen) 04/16/2013 12:00 PM EDT 04/16/2013 12:05 PM EDT Narrative Resulting Agency Comment Spec In Lab Freddy Mejias MD CHEMISTRY ORDERABLES [facility] * Echocardiogram Transthoracic(Leb) (04/16/2013 10:11 AM EDT) EF 60 HEARTRedHelper SYSTEM Anatomical Region Laterality Modality Other 04/16/2013 Narrative 04/16/2013 10:37 AM EDT Procedure: ? Transthoracic Echocardiogram Patient: ? APOLINAR RUSSELL L ?(Age): 1960(52) Med Rec#: ?[id number] ? Sex: ?F ? Site Loc: ?DH ? Ht / Wt: ??163(cm)/115(kg) Pt. Loc: ? Adult Floor ?BSA: ?2.28 Study Date: ?04/16/2013 ? Pt. Type: Inpatient Tape: ? Referring: Tavon Reed Tank Furnace Operator: Dereck Diaz Diagnosis:CPT Code(s): ??Echo Full (52019), ??Spectral Doppler (00569), Color Doppler (57500), ??Optison (40813FX), ??Spectral Doppler (99795), Color Doppler (65665), ??Definity (98515FE), ??Echo Full (94515), Indication(s): ??Angina Rhythm: HR ?BP ?134/69 ?? [...] ? Mid-Inferior ?Normal ? Mid-Inferoseptal ?Normal ? Tracy-Septal ? Normal ? Tracy-Anterior ? Normal ? Tracy-Lateral ?Normal ? Tracy-Inferior ? Normal ? Tracy-Tip ?Normal ? Chambers ?Value ?Units (Range) ? [...] 04/16/2013 10:36:51 Images reviewed and interpretation verified [facility] Cardiac Ultrasound Laboratory Procedure Note Chalino Gomez MD - 04/16/2013 Procedure: Transthoracic Echocardiogram Patient: APOLINAR Lawson DOB(Age): 1960(52) Med Rec#: [id number] Sex: F Site Loc: [facility] Ht / Wt: 163(cm)/115(kg) Pt. Loc: Adult Floor BSA: 2.28 Study Date: 04/16/2013 Pt. Type: Inpatient Tape: Referring: Tavon Reed Tank Furnace Operator: Dereck Diaz Diagnosis:CPT Code(s): Echo Full (07719), Spectral Doppler (57537), Color Doppler (21788), Optison (23551WR), Spectral Doppler (73918), Color Doppler (31059), Definity (52643DU), Echo Full (80240), Indication(s): Angina Rhythm: HR BP 134/69 SUMMARY: [...] Normal Mid-Posterolateral Normal Mid-Inferior Normal Mid-Inferoseptal Normal Tracy-Septal Normal Tracy-Anterior Normal Tracy-Lateral Normal Tracy-Inferior Normal Tracy-Tip Normal Chambers Value Units (Range) IVSd 2D [...] 04/16/2013 10:36:51 Images reviewed and interpretation verified [facility] Cardiac Ultrasound Laboratory Tavon Reed MD ECHO ORDERABLES * POCT Glucose (04/16/2013 7:42 AM EDT) Pathologist [facility] Glucose, POC 103 60 - 199 mg/dL [facility] Comment: Supplemental ranges: <110 mg/dL before meals <200 mg/dL all other times of the day Blood specimen (specimen) 04/16/2013 7:42 AM EDT 04/16/2013 7:42 AM EDT Freddy Mejias MD POINT OF CARE TEST O RDERABLES [facility] * (ABNORMAL) Differential, Automated (04/16/2013 4:07 AM EDT) Pathologist [facility] Neutrophil % 51.8 34.0 - 71.0 % [...] EDT Tavon Reed MD HEMATOLOGY ORDERABLE S [facility] * (ABNORMAL) Basic Metabolic Panel (non-fasting) (04/16/2013 4:07 AM EDT) [facility] Glucose 97 60 - 199 mg/dL [facility] Comment:Diabetes: >=200 mg/d L plus symptoms Blood Urea Nitrogen 12 8 - 18 mg/dL [facility] Creatinine 0.64(L) 0.70 - 1.20 mg/dL [facility] Comment: Please note that the pediatric reference intervals supplied above were not validated at [facility]. Results from pediatric patients should be interpreted [...] MD HEMATOLOGY ORDERABLE S Performing Organization Address City/[facility]/ZIP Co de Phone Number [facility] * [...] 12.0 - 15.0 sec [facility] Comment: [facility] Transfusion Committee Guidelines: INR less [...] MD HEMATOLOGY ORDERABLE S Performing Organization Address [facility] Co de Phone Number [facility] * (ABNORMAL) APTT (04/15/2013 10:00 PM EDT) Partial Thromboplastin Time 111(H) 25 - 35 sec [facility] Comment: Recommended therapeutic PTT range for full dose unfractionated heparin is 80-114 seconds. Blood specimen (specimen) 04/15/2013 10:00 PM EDT 04/15/2013 11:27 PM EDT Narrative Resulting Agency Comment Spec In Lab Freddy Mejias MD HEMATOLOGY ORDERABLE S Performing Organization Address [facility] de Phone Number [facility] * POCT Glucose (04/15/2013 8:50 PM EDT) Glucose, POC 127 60 - 199 mg/dL [facility] Comment: Supplemental ranges: <110 mg/dL before meals <200 mg/dL all other times of the day Blood specimen (specimen) 04/15/2013 8:50 PM EDT 04/15/2013 8:50 PM EDT Freddy Mejias MD POINT OF CARE TEST O RDERABLES Performing Organization Address [facility] Co de Phone Number [facility] * (ABNORMAL) APTT (04/15/2013 5:00 PM EDT) Partial Thromboplastin Time 108(H) 25 - 35 sec [facility] Comment: Recommended therapeutic PTT range for full dose unfractionated heparin is 80-114 seconds. Blood specimen (specimen) 04/15/2013 5:00 PM EDT 04/15/2013 11:16 PM EDT Narrative Resulting Agency Comment Spec In Lab Freddy Mejias MD HEMATOLOGY ORDERABLE S Performing Organization Address [facility] Co de Phone Number [facility] * POCT Glucose (04/15/2013 3:54 PM EDT) Glucose, POC 133 60 - 199 mg/dL [facility] Comment: Supplemental ranges: <110 mg/dL before meals <200 mg/dL all other times of the day Blood specimen (specimen) 04/15/2013 3:54 PM EDT 04/15/2013 3:54 PM EDT Freddy Mejias MD POINT OF CARE TEST O RDERABLES Performing Organization Address [facility] de Phone Number [facility] * EKG 12 Lead (04/15/2013 12:49 PM EDT) Ventricular rate 43 BPM MUSE SYSTEM Atrial Rate 43 BPM MUSE SYSTEM P-R Interval 156 ms MUSE SYSTEM QRS Duration 84 ms MUSE SYSTEM Q-T Interval 508 ms MUSE SYSTEM QTC Calculated (Bezet) 429 ms MUSE SYSTEM Calculated P [place] 42 degrees MUSE SYSTEM Calculated R [place] 36 degrees MUSE SYSTEM Calculated T [place] 146 degrees MUSE SYSTEM INTERPRETATION Marked sinus bradycardia ST & T wave abnormality, consider anterolateral ischemia Abnormal ECG When compared with ECG of 15-APR-2013 07:17, (unconfirmed) No significant change was found Confirmed by MD NGHIA, JENNY ([id number]) on 04/16/2013 5:25:05 PM MUSE SYSTEM 04/15/2013 12:4 9 PM EDT 04/16/2013 5:25 PM EDT Tavon Reed MD ECG ORDERABLES Performing Organization Address [facility] de Phone Number MUSE SYSTEM * POCT Glucose (04/15/2013 11:27 AM EDT) Glucose, POC 99 60 - 199 mg/dL [facility] Comment: Supplemental ranges: <110 mg/dL before meals <200 mg/dL all other times of the day Blood specimen (specimen) 04/15/2013 11:27 AM EDT 04/15/2013 11:27 AM EDT Freddy Mejias MD POINT OF CARE TEST O RDERABLES Performing Organization Address [facility] de Phone Number [facility] * Cardiac Enzymes (04/15/2013 10:28 AM EDT) Troponin-T <0.03 <=0.03 ng/mL [facility] Comment: 0.03 ng/mL: Represents the 99th percentile upper reference limit for normals. >0.03 ng/mL: Elevated cardiac troponin T level indicative of myocardial damage. Diagnosis of acute, evolving or recent [place] requires a typical rise and gradual fall [...] consensus document of the Joint Society of Cardiology/[place] College [employer] Cardiology Committee for the redefinition of myocardial infarction. Journal of the [place] College [employer] Cardiology 2000; 36: 959-969] Creatine Kinase 47 0 - 160 unit/L [facility] Blood specimen (specimen) 04/15/2013 10:28 AM EDT 04/15/2013 10:37 AM EDT Narrative Resulting Agency Comment Spec In Lab Tavon Reed MD CHEMISTRY ORDERABLES Performing Organization Address [facility] de Phone Number [facility] * (ABNORMAL) APTT (04/15/2013 10:28 AM EDT) Partial Thromboplastin Time 66(H) 25 - 35 sec [facility] Comment: Recommended therapeutic PTT range for full dose unfractionated heparin is 80-114 seconds. Blood specimen (specimen) 04/15/2013 10:28 AM EDT 04/15/2013 10:37 AM EDT Narrative Resulting Agency Comment Spec In Lab Freddy Mejias MD HEMATOLOGY ORDERABLE S Performing Organization Address [facility]/ZIP Co de Phone Number [facility] * XR chest routine PA [...] POCT Glucose (04/15/2013 7:59 AM EDT) Pathologist [facility] Glucose, POC 108 60 - 199 mg/dL [facility] Comment: Supplemental ranges: <110 mg/dL before meals <200 mg/dL all other times of the day Blood specimen (specimen) 04/15/2013 7:59 AM EDT 04/15/2013 7:59 AM EDT Freddy Mejias MD POINT OF CARE TEST O RDERABLES Performing Organization Address [facility]/ZIP Co de Phone Number [facility] * EKG 12 Lead (04/15/2013 7:17 AM EDT) Ventricular rate 57 BPM MUSE SYSTEM Atrial Rate 57 BPM MUSE SYSTEM P-R Interval 148 ms MUSE SYSTEM QRS Duration 82 ms MUSE SYSTEM Q-T Interval 474 ms MUSE SYSTEM QTC Calculated (Bezet) 461 ms MUSE SYSTEM Calculated P [place] 41 degrees MUSE SYSTEM Calculated R [place] 54 degrees MUSE SYSTEM Calculated T [place] 123 degrees MUSE SYSTEM INTERPRETATION Sinus bradycardia [...] damage. Diagnosis of acute, evolving or recent [place] requires a typical rise and gradual fall [...] consensus document of the Joint Society of Cardiology/[place] College of Cardiology Committee for the redefinition of myocardial infarction. Journal of the [place] College [employer]iology 2000; 36: 959-969] Creatine Kinase 36 0 - 160 unit/L [facility] Blood specimen (specimen) 04/15/2013 4:54 AM EDT 04/15/2013 5:33 AM EDT Narrative Resulting Agency Comment Spec In Lab Tavon Reed MD CHEMISTRY ORDERABLES [facility] * Hemoglobin A1c (04/15/2013 4:54 AM EDT) Hemoglobin A1c 6.1 4.3 - 6.1 % [facility] Comment: The [place] [employer] Association (ADA) has stated that HbA1c [...] 2013:36;suppl 1:S11-S66. Estimated Average Glucose 128 mg/dL [facility] Comment: eAG equivalents for HbA1c [...] into estimated average glucose values. ??Diabetes Care 2008:31(8):4463-1014. Blood specimen (specimen) 04/15/2013 4:54 AM EDT 04/15/2013 5:33 AM EDT Narrative Resulting Agency Comment Spec In Lab Tavon Reed MD CHEMISTRY ORDERABLES [facility] * (ABNORMAL) Lipid panel (fasting) (04/15/2013 4:54 AM EDT) [facility] Cholesterol, Total 159 <=199 mg/dL [facility] Comment: Recommendations of the NCEP Adult Treatment Panel for the following risk cutoff thresholds for the [place] population: Desirable: <200 mg/dL Borderline High: 200-239 mg/dL High: > or = 240 mg/dL Triglyceride 138 <=149 mg/dL CERNER MILLENNIUM Comment: Reference Range: Normal triglycerides: ??<150 mg/dL Borderline high: ??150-199 mg/dL High: ??200-499 mg/dL Very high: ??>oc=256 mg/dL KIP 2001; 285(19):0365-0750 HDL Cholesterol 30(L) >=40 mg/dL [facility] Comment: Reference range: ??Low HDL: ?? < 40 mg/dL ??Normal: ?40-60 mg/dL ??Desirable: > 60 mg/dL KIP 2001; 285(19):7790-5914 LDL Cholesterol 101(H) <=99 mg/dL [facility] N[facility] MILLENNIUM Comment: Reference range: ?? Optimal: ?<100 mg/dL ?? Near Optimal/Above Optimal: ?? 100-129 mg/dL ?? Borderline high: ?130-159 mg/dL ?? High: ? 160-189 mg/dL ?? Very high: ?>lx=194 mg/dL KIP 2001: 285(19):2471-8140 Cholesterol/HDL Ratio 5.3 ratio [facility] Comment: A Cholesterol to HDL ratio below 4:1 is desirable. ??Studies suggest that increased CAD risk occurs at ratios above 5 for females and above 6 for men. ? [place] [employer] Association ??(http://www.americanheart.org) ? Sadie Int Med, 1994; 121:641 ? AM J Med, 1998; 105(1A):48S Blood specimen (specimen) 04/15/2013 4:54 AM EDT 04/15/2013 5:33 AM EDT Narrative Resulting Agency Comment Spec In Lab Tavon Reed MD CHEMISTRY ORDERABLES [facility] * (ABNORMAL) Hepatic Function Panel [...] Reed MD CHEMISTRY ORDERABLES Performing Organization Address [facility] Co de Phone Number CERNER MILLENNIUM * TSH (04/15/2013 4:54 AM EDT) Thyroid Stimulating Hormone 1.73 0.27 - 4.20 mcIU/mL [facility]ERN[facility] MILLENNIUM Blood specimen (specimen) 04/15/2013 4:54 AM EDT 04/15/2013 5:33 AM EDT Narrative Resulting Agency Comment Spec In Lab Tavon Reed MD CHEMISTRY ORDERABLES Performing Organization Address City/[facility] Co de Phone Number CERKELSEY CORTEZENNIUM * Phosphorus (04/15/2013 4:54 AM EDT) Phosphorus 3.5 2.5 - 4.5 mg/dL [facility]ERN[facility] MILLENNIUM Blood specimen (specimen) 04/15/2013 4:54 AM EDT 04/15/2013 5:33 AM EDT Narrative Resulting Agency Comment Spec In Lab Tavon Reed MD CHEMISTRY ORDERABLES Performing Organization Address [facility] Co de Phone Number CERKELSEY CORTEZENNIUM * Magnesium (04/15/2013 4:54 AM EDT) Magnesium 0.84 0.69 - 1.07 mmol/L [facility] Blood specimen (specimen) 04/15/2013 4:54 AM EDT 04/15/2013 5:33 AM EDT Narrative Resulting Agency Comment Spec In Lab Tavon Reed MD CHEMISTRY ORDERABLES Performing Organization Address [facility] Phone Number [facility] * Calcium (04/15/2013 4:54 AM EDT) Calcium 8.9 8.5 - 10.5 mg/dL [facility] Blood specimen (specimen) 04/15/2013 4:54 AM EDT 04/15/2013 5:33 AM EDT Narrative Resulting Agency Comment Spec In Lab Tavon Reed MD CHEMISTRY ORDERABLES Performing Organization Address [facility] Phone Number [facility] * (ABNORMAL) APTT (04/15/2013 4:53 AM EDT) Partial Thromboplastin Time 62(H) 25 - 35 sec [facility] Comment: Recommended therapeutic PTT range for full dose unfractionated heparin is 80-114 seconds. Blood specimen (specimen) 04/15/2013 4:53 AM EDT 04/15/2013 5:33 AM EDT Narrative Resulting Agency Comment Spec In Lab Tavon Reed MD HEMATOLOGY ORDERABLE S Performing Organization Address [facility] de Phone Number [facility] * Prothrombin Time (04/15/2013 4:53 AM EDT) Prothrombin Time 12.9 12.0 - 15.0 sec [facility] Comment: [facility] Transfusion Committee Guidelines: INR less [...] MD HEMATOLOGY ORDERABLE S Performing Organization Address [facility] Co de Phone Number [facility] * Prothrombin Time (04/15/2013 12:45 AM EDT) Prothrombin Time 13.7 12.0 - 15.0 sec [facility] Comment: [facility] Transfusion Committee Guidelines: INR less [...] MD HEMATOLOGY ORDERABLE S Performing Organization Address [facility] de Phone Number [facility] * APTT (04/14/2013 11:55 PM EDT) Partial Thromboplastin Time 28 25 - 35 sec [facility] Comment: Recommended therapeutic PTT range for full dose unfractionated heparin is 80-114 seconds. Blood specimen (specimen) 04/14/2013 11:55 PM EDT 04/15/2013 12:07 AM EDT Narrative Resulting Agency Comment Spec In Lab Tavon Reed MD HEMATOLOGY ORDERABLE S Performing Organization Address [facility] de Phone Number [facility] * EKG 12 Lead (04/14/2013 10:59 PM EDT) Ventricular rate 65 BPM MUSE SYSTEM Atrial Rate 65 BPM MUSE SYSTEM P-R Interval 134 ms MUSE SYSTEM QRS Duration 86 ms MUSE SYSTEM Q-T Interval 424 ms MUSE SYSTEM QTC Calculated (Bezet) 440 ms MUSE SYSTEM Calculated P [place] 26 degrees MUSE SYSTEM Calculated R [place] 17 degrees MUSE SYSTEM Calculated T [place] 36 degrees MUSE SYSTEM INTERPRETATION Normal sinus rhythm with sinus arrhythmia T wave abnormality, consider anterior ischemia Abnormal ECG When compared with ECG of 14-APR-2013 22:57, (unconfirmed) No significant change was found Confirmed by MD AGRAWAL MARK ([id number]) on 04/16/2013 11:34:39 AM MUSE SYSTEM 04/14/2013 10:5 9 PM EDT 04/16/2013 11:34 AM EDT Tavon Reed MD ECG ORDERABLES Performing Organization Address [facility] Phone Number MUSE SYSTEM * EKG 12 Lead (04/14/2013 10:57 PM EDT) Ventricular rate 56 BPM MUSE SYSTEM Atrial Rate 56 BPM MUSE SYSTEM P-R Interval 144 ms MUSE SYSTEM QRS Duration 84 ms MUSE SYSTEM Q-T Interval 430 ms MUSE SYSTEM QTC Calculated (Bezet) 414 ms MUSE SYSTEM Calculated P [place] 25 degrees MUSE SYSTEM Calculated R [place] 22 degrees MUSE SYSTEM Calculated T [place] 41 degrees MUSE SYSTEM INTERPRETATION Sinus bradycardia with Sinus arrhythmia T wave abnormality, consider anterolateral ischemia Abnormal ECG Confirmed by MD AGRAWAL MARK ([id number]) on 04/16/2013 11:34:11 AM MUSE SYSTEM 04/14/2013 10:5 7 PM EDT 04/16/2013 11:34 AM EDT Tavon Reed MD ECG ORDERABLES Performing Organization Address [facility] Phone Number MUSE SYSTEM * EKG 12 Lead (04/14/2013 10:56 PM EDT) Ventricular rate 53 BPM MUSE SYSTEM Atrial Rate 53 BPM MUSE SYSTEM P-R Interval 142 ms MUSE SYSTEM QRS Duration 74 ms MUSE SYSTEM Q-T Interval 420 ms MUSE SYSTEM QTC Calculated (Bezet) 394 ms MUSE SYSTEM Calculated P [place] 32 degrees MUSE SYSTEM Calculated R [place] 22 degrees MUSE SYSTEM Calculated T [place] 39 degrees MUSE SYSTEM INTERPRETATION Sinus bradycardia Sinus arrhythmia T wave abnormality, consider anterolateral ischemia Abnormal ECG Confirmed by MD AGRAWAL MARK ([id number]) on 04/16/2013 11:33:23 AM MUSE SYSTEM 04/14/2013 10:5 6 PM EDT 04/16/2013 11:33 AM EDT Freddy Mejias MD ECG ORDERABLES MUSE SYSTEM * POCT urine (04/14/2013 10:41 PM EDT) Pathologist [facility] POC Urine HCG Negative Negative - Negative POC Control Internal Controls Acceptable Tavon Reed MD POINT OF CARE TEST O RDERABLES * POCT urine dipstick (04/14/2013 10:41 PM EDT) [facility] POC Sp [place] 1.010 1.002 - 1.030 POC pH, UA [...] Differential, Automated (04/14/2013 9:10 PM EDT) Pathologist [facility] Neutrophil % 59.6 34.0 - 71.0 % [...] MD HEMATOLOGY ORDERABLE S Performing Organization Address [facility] de Phone Number [facility] * Gold Tube HOLD (04/14/2013 9:10 PM EDT) Gold Hold Sample in lab. [facility] CORTEZENNIUM Blood specimen (specimen) 04/14/2013 9:10 PM EDT 04/14/2013 9:15 PM EDT Tavon Reed MD CHEMISTRY ORDERABLES Performing Organization Address [facility] de Phone Number [facility] * Blue Tube HOLD (04/14/2013 9:10 PM EDT) Blue Hold Sample in lab. [facility] CORTEZENNIUM Blood specimen (specimen) 04/14/2013 9:10 PM EDT 04/14/2013 9:15 PM EDT Tavon Reed MD HEMATOLOGY ORDERABLE S Performing Organization Address [facility] Co de Phone Number [facility] [...] Tavon Reed MD HEMATOLOGY ORDERABLE S [facility] * Cardiac Enzymes (04/14/2013 9:10 PM EDT) [facility] Troponin-T <0.03 <=0.03 ng/mL CERNER MILLENNIUM Comment: 0.03 ng/mL: Represents the 99th percentile upper reference limit for normals. >0.03 ng/mL: Elevated cardiac troponin T level indicative of myocardial damage. Diagnosis of acute, evolving or recent [place] requires a typical rise and gradual fall [...] consensus document of the Joint Society of Cardiology/[place] College [employer] Committee for the redefinition of myocardial infarction. Journal of the [place] College [employer]iology 2000; 36: 959-969] Creatine Kinase 49 0 - 160 unit/L CERNER [employer] Commerce[employer]NIUM Blood specimen (specimen) 04/14/2013 9:10 PM EDT 04/14/2013 9:14 PM EDT Narrative Resulting Agency Comment Spec In Lab Tavon Reed MD CHEMISTRY ORDERABLES [facility] [employer] (FIG)IUM * Glucose, random (04/14/2013 9:10 PM EDT) Glucose 114 60 - 199 mg/dL [facility] [employer] Comment:Diabetes: >=200 mg/d L plus symptoms Blood specimen (specimen) 04/14/2013 9:10 PM EDT 04/14/2013 9:14 PM EDT Narrative Resulting Agency Comment Spec In Lab Tavon Reed MD CHEMISTRY ORDERABLES Performing Organization Address City/[facility]/ZIP Co de Phone Number CERKELSEY [employer]NI[employer] * Creatinine (04/14/2013 9:10 PM EDT) Creatinine 0.78 0.70 - 1.20 mg/dL [facility] [employer] ([employer]IUM Comment: Please note that the pediatric reference intervals supplied above were not validated at [facility]. Results from pediatric patients should be interpreted in conjunction to the patient's age, height and muscle mass. Est Glomerular Filtration Rate >60 >=60 CERNER [employer] Comment: This estimated GFR (eGFR) value was [...] Reed MD CHEMISTRY ORDERABLES Performing Organization Address City/[facility] Co de Phone Number CERKELSEY CORTEZENNIUM * BUN (04/14/2013 9:10 PM EDT) Blood Urea Nitrogen 16 8 - 18 mg/dL CERNER MILLENNIUM Blood specimen (specimen) 04/14/2013 9:10 PM EDT 04/14/2013 9:14 PM EDT Narrative Resulting Agency Comment Spec In Lab Tavon Reed MD CHEMISTRY ORDERABLES Performing Organization Address [facility] Co de Phone Number CERNER [...] Reed MD CHEMISTRY ORDERABLES Performing Organization Address City/[facility]/ZIP Co de Phone Number CERKELSEY CORTEZENNIUM * EKG 12 Lead (04/14/2013 8:57 PM EDT) Ventricular rate 67 BPM MUSE SYSTEM Atrial Rate 67 BPM MUSE SYSTEM P-R Interval 140 ms MUSE SYSTEM QRS Duration 72 ms MUSE SYSTEM Q-T Interval 372 ms MUSE SYSTEM QTC Calculated (Bezet) 393 ms MUSE SYSTEM Calculated P [place] 44 degrees MUSE SYSTEM Calculated R [place] 36 degrees MUSE SYSTEM Calculated T [place] 48 degrees MUSE SYSTEM INTERPRETATION Sinus rhythm [...] in sodium chloride 0.9% 50 mL infusion (SENIOR CLINICAL PROJECT MANAGER) CONTINUOUS PRN, Starting on Tue04/16/13 at 1054, [...] sec X 2 - call dry house worker See Bolus dosing guidance for aPTT values [...] over 24 Hours, DAILY, First dose on [place] 04/15/13 at 0900, Until Discontinued, Routine Given [...] Sublingual, EVERY 5 MIN PRN, Starting on [place] 04/15/13 at 0126, Until 04/17/13 at 1743, [...] CONTINUOUS, Starting on 04/14/13 at 2330, Until [place] 04/15/13 at 1227, Maximum dose: 200 mcg/min [...] sec X 2 - call dry house worker See Bolus dosing guidance for aPTT values [...] in sodium chloride 0.9% 50 mL infusion (SENIOR CLINICAL PROJECT MANAGER) (CANCELED) CONTINUOUS PRN, Starting on Tue04/16/13 [...] Patch documented in this encounter Care Teams Landscape Drafter Relationship Specialty Start Date End Date Adriana Perla APRN [address] [place] [address] PCP - General 06/16/10 06/27/18 documented as of this encounter
--- OUTSIDE RECORDS SUMMARY | 2024-08-07 14:16 | XMS_ITS | Encounter Summary ---
Author Organization [facility] [place] [address] Care Team Providers Care Fitter Machinist Name Role Phone Aman Lawrence APRN Primary Care Provider [phone] Encounter Details Date Type Department Care Team (Late st Contact Info) Description 01/18/2011 [place] [address] Lay Davis RN Social History Tobacco Use [...] on filedocumented in this encounter Care Teams Fitter Machinist Relationship Specialty Start Date [place] [address] PCP - General 06/16/10 06/27/18 documented as of this encounter
--- OUTSIDE RECORDS SUMMARY | 2024-08-07 14:16 | XMS_ITS | Encounter Summary ---
Author Organization [facility] Address [address] [facility] [place] [address] Care Team Providers Care Application Infrastructure Engineer Name Role Phone Yisel Marroquin MD Primary Care Provider Unavail able Encounter Details Date Type Department Care Team (Late st Contact Info) Description 11/10/2011 Interpretation Only Radiology [address] [facility] [place] [address] Unknown None Social History Tobacco Use Types [...] 7:42 AM EDT APD Historical Result Principal Commercial Litigation Attorney: ??ISAK ??ESCHBACH DIRECT-DIGITAL SCREENING MAMMOGRAM: COMPARISON: ??August 06, 2007. ??June 13, 2006. Interpretation is made with the benefit of CAD. The examination consists of bilateral CC and MLO views. Breast composition is predominately fatty. There are no suspicious clusters of microcalcifications, suspicious masses, or areas of architectural distortion to suggest malignancy. IMPRESSION: ACR 1 - NEGATIVE MAMMOGRAM / A12. Isak Benavides DO [facility] [id number] CC: Procedure Note Unknown - 01/23/2019 APD Historical Result Principal Commercial Litigation Attorney: ISAK BENAVIDES DIRECT-DIGITAL SCREENING MAMMOGRAM: COMPARISON: August 06, 2007. June 13, 2006. Interpretation is made with the benefit of CAD. The examination consists of bilateral CC and MLO views. Breast composition is predominately fatty. There are no suspicious clusters of microcalcifications, suspiciousmasses, or areas of architectural distortion to suggest malignancy. IMPRESSION: ACR 1 - NEGATIVE MAMMOGRAM / A12. Isak Benavides DO [facility] [id number] CC: Unknown IMG MAMMO ORDERABLES documented in this encounter Visit Diagnoses Not on filedocumented in this encounter Care Teams Application Infrastructure Engineer Relationship Specialty Start Date End Date Yisel Marroquin MD PCP - General 11/13/18 03/05/19 documented as of this encounter
--- OUTSIDE RECORDS SUMMARY | 2024-08-07 14:16 | XMS_ITS | Encounter Summary ---
Author Organization [facility] [place] [address] Care Team Providers Care Reamer Hand Name Role Phone Yisel Marroquin MD Primary Care Provider Unavail able Encounter Details Date Type Department Care Team (Late st Contact Info) Description 10/11/2011 Orders Only Radiology and Cardiology Results [address] [place] [address] Apd Conversion, Results Provider, Social [...] DAY CONVERSION LDL Cholesterol 154(Exter nal Lab) [place]IR [place]ORES DAY CONVERSION HDL Cholesterol 34.9(Exte rnal Lab) 29 - 89 KORI FLORES DAY CONVERSION Triglyceride 217(ExtH) 0 - 199 KORI Cobos NATALEE DAY CONVERSION Cholesterol, Total 232(ExtH) 0 - 199 KORI FLORES DAY CONVERSION 10/11/2011 Results Provider Apd Conversion MD JASON ESTRELLA ORDERABLES KORI FLORES DAY CONVERSION documented in this encounter Visit Diagnoses Not on filedocumented in this encounter Care Teams Reamer Hand Relationship Specialty Start Date End Date Yisel Marroquin MD PCP - General 11/13/18 03/05/19 documented as of this encounter
--- OUTSIDE RECORDS SUMMARY | 2024-08-07 14:16 | XMS_ITS | Encounter Summary ---
Author Organization [facility] Address [facility] [place] [address] Care Team Providers Care Platform Consultant Name Role Phone Aman Lawrence APRN Primary Care Provider +1 -[phone] Reason for Visit * Reason Comments Chest Pain Encounter Details Date Type Department Care Team (Late st Contact Info) Description 04/09/2013 9:29 AM EDT - 04/09/2013 2:55 PM [place] [id number] Tavon Reed MD [facility] [place] [address] Chest pain; Chest pain radiating to arm [...] vitamins (B COMPLEX-VITAMIN B12) tablet 09/23/2010 11/19/2016 xhtjyrskvmdf-zoxj-hvuq rals (COMPLETE MULTIVITAMIN) Tab tablet 1 Tablet(s), PO, Once daily 09/23/2010 11/19/2016 calcium citrate-vitamin D (CITRACAL+D) 315-200 mg-unit per tablet 2 Tablet(s), PO, Twice daily 09/23/2010 11/19/2016 ergocalciferol (VITAMIN D) 50,000 unit capsule [id number], PO, TWICE a week 09/23/2010 11/19/2016 documented [...] no other associating symptoms, Pt placed on nuclear monitoring technician, EKG done, iv est, labs drawn, Pt [...] 0.05 x10(3)/mcL RAPID QUALITATIVE DRUG SCREEN, URINE ([facility]) Component Value Range MARILU Marijuana Metabolites Scr [...] APOLINAR RUSSELL L ?(Age): 1960(52) Med Rec#: ?[id number] ? Sex: ?F ? Site Loc: ?[facility] ? Ht / Wt: ??163(cm)/108(kg) Pt. Loc: ? ED ? BSA: ?2.21 Study Date: ?04/09/2013 ? Pt. Type: Outpatient Tape: ? Referring: Sergo Ortiz ([id number]) Senior Cost Estimator: Remy Campos Interpreting Fellow: Adal Esqueda ([id number]) Diagnosis:CPT Code(s): ??Spectral Doppler (44741), ??Color Doppler (29972), ??Definity (06762TD), ??Echo Full (23945), Indication(s): ??Chest Pain Rhythm: Bradycardia HR ?BP [...] ? Mid-Inferior ?Normal ? Mid-Inferoseptal ?Normal ? [place]-Septal ? Normal ? [place]-Anterior ? Normal ? [place]-Lateral ?Normal ? [place]-Inferior ? Normal ? [place]-Tip ?Normal ? Chambers ?Value ?Units (Range) ? [...] 04/09/2013 15:20:08 Images reviewed and interpretation verified [facility] Cardiac Ultrasound Laboratory Procedure Note Anthony Leary MD - 04/09/2013 Procedure: Transthoracic Echocardiogram Patient: APOLINAR Lawson (Age): 1960(52) Med Rec#: [id number] Sex: F Site Loc: [facility] Ht / Wt: 163(cm)/108(kg) Pt. Loc: ED BSA: 2.21 Study Date: 04/09/2013 Pt. Type: Outpatient Tape: Referring: Sergo Ortiz ([id number]) Senior Cost Estimator: Remy Campos Interpreting Fellow: Adal Esqueda ([id number]) Diagnosis:CPT Code(s): Spectral Doppler (02347), Color Doppler (60634), Definity (75101GG), Echo Full (94071), Indication(s): Chest Pain Rhythm: Bradycardia HR BP [...] Normal Mid-Posterolateral Normal Mid-Inferior Normal Mid-Inferoseptal Normal [place]-Septal Normal [place]-Anterior Normal [place]-Lateral Normal [place]-Inferior Normal [place]-Tip Normal Chambers Value Units (Range) [place] area [...] 04/09/2013 15:20:08 Images reviewed and interpretation verified [facility] Cardiac Ultrasound Laboratory Sergo Ortiz MD ECHO ORDERABLES * EKG 12 Lead (04/09/2013 2:24 PM EDT) Ventricular rate 52 BPM MUSE SYSTEM Atrial Rate 52 BPM MUSE SYSTEM P-R Interval 148 ms MUSE SYSTEM QRS Duration 84 ms MUSE SYSTEM Q-T Interval 418 ms MUSE SYSTEM QTC Calculated (Bezet) 388 ms MUSE SYSTEM Calculated P [place] 51 degrees MUSE SYSTEM Calculated R [place] 52 degrees MUSE SYSTEM Calculated T [place] 42 degrees MUSE SYSTEM INTERPRETATION Sinus bradycardia with sinus arrhythmia Nonspecific T wave abnormality Abnormal ECG When compared with ECG of 09-APR-2013 09:42, No significant change was found Confirmed by MD CARL, SERGO ([id number]) on 04/09/2013 6:04:44 PM MUSE SYSTEM 04/09/2013 2:24 PM EDT 04/09/2013 6:04 PM EDT Tavon Reed MD ECG ORDERABLES Performing Organization Address City/[facility] Co de Phone Number MUSE SYSTEM * Troponin T (04/09/2013 2:00 PM EDT) Pathologist [facility] Troponin-T <0.03 <=0.03 ng/mL [facility] Comment: 0.03 ng/mL: Represents the 99th percentile upper reference limit for normals. >0.03 ng/mL: Elevated cardiac troponin T level indicative of myocardial damage. Diagnosis of acute, evolving or recent [place] requires a typical rise and gradual fall [...] consensus document of the Joint Society of Cardiology/[place] College of [employer]iology Committee for the redefinition of myocardial infarction. Journal of the [place] College [employer] 2000; 36: 959-969] Blood specimen (specimen) 04/09/2013 2:00 PM EDT 04/09/2013 2:10 PM EDT Narrative Resulting Agency Comment Spec In Lab Tavon Reed MD CHEMISTRY ORDERABLES Performing Organization Address [facility] Co de Phone Number NICANORKELSEY CORTEZJUANAMONTSERRAT * (ABNORMAL) Rapid Qual Drug Screen, Urine ([facility]) (04/09/2013 11:50 AM EDT) Pathologist [facility] MARILU Marijuana Metabolites Screen None Detected None Detected [facility] Comment: The marijuana metabolites screen detects the THC Metabolite (17-ixr-7-carboxy- 9-THC) at concentrations >50 ng/mL. Qualitative Drug [...] damage. Diagnosis of acute, evolving or recent [place] requires a typical rise and gradual fall [...] consensus document of the Joint Society of Cardiology/[place] College of Cardiology Committee for the redefinition of myocardial infarction. Journal of the [place] College of Cardiology 2000; 36: 959-969] Blood specimen (specimen) 04/09/2013 10:44 AM EDT 04/09/2013 10:56 AM EDT Narrative Resulting Agency Comment Spec In Lab Tavon Reed MD CHEMISTRY ORDERABLES Performing Organization Address [facility] Co de Phone Number [facility] [facility] * Glucose, random (04/09/2013 10:44 AM EDT) Glucose 86 60 - 199 mg/dL [facility] Comment:Diabetes: >=200 mg/d L plus symptoms Blood specimen (specimen) 04/09/2013 10:44 AM EDT 04/09/2013 10:56 AM EDT Narrative Resulting Agency Comment Spec In Lab Tavon Reed MD CHEMISTRY ORDERABLES Performing Organization Address [facility] Co de Phone Number [facility] [employer] * Creatinine (04/09/2013 10:44 AM EDT) Creatinine 0.75 0.70 - 1.20 mg/dL [facility] [employer] Comment: Please note that the pediatric reference intervals supplied above were not validated at [facility]. Results from pediatric patients should be interpreted in conjunction to the patient's age, height and muscle mass. Est Glomerular Filtration Rate >60 >=60 [facility] Comment: This estimated GFR (eGFR) value was [...] Reed MD CHEMISTRY ORDERABLES Performing Organization Address [facility] de Phone Number CERKELSEY MILLENNIUM * BUN (04/09/2013 10:44 AM EDT) Blood Urea Nitrogen 16 8 - 18 mg/dL CERNER MILLENNIUM Blood specimen (specimen) 04/09/2013 10:44 AM EDT 04/09/2013 10:56 AM EDT Narrative Resulting Agency Comment Spec In Lab Tavon Reed MD CHEMISTRY ORDERABLES Performing Organization Address [facility] de Phone Number CERKELSEY MILLENNIUM * Electrolytes [...] Reed MD CHEMISTRY ORDERABLES Performing Organization Address [facility] Co de Phone Number CERKELSEY MILLENNIUM * [...] (Bezet) 388 ms MUSE SYSTEM Calculated P [place] 54 degrees MUSE SYSTEM Calculated R [place] 56 degrees MUSE SYSTEM Calculated T [place] 57 degrees MUSE SYSTEM INTERPRETATION Sinus bradycardia with sinus arrhythmia Nonspecific T wave abnormality Abnormal ECG When compared with ECG of 31-MAY-2005 11:28, anterior T wave inversion more pronounced. Confirmed by MD CARL, SERGO ([id number]) on 04/09/2013 6:04:15 PM MUSE SYSTEM 04/09/2013 9:42 AM EDT 04/09/2013 6:04 PM EDT Caleb Goldberg MD ECG ORDERABLES MUSE SYSTEM documented [...] Campos) documented in this encounter Care Teams Platform Consultant Relationship Specialty Start Date End Date Aman Lawrence APRN [address] [place] [address] PCP - General 06/16/10 06/27/18 documented as of this encounter
--- OUTSIDE RECORDS SUMMARY | 2024-08-07 14:16 | XMS_ITS | Encounter Summary ---
Author Organization [facility] [place] [address] Care Team Providers Care Plant Pathologist Name Role Phone Aman Lawrence APRN Primary Care Provider +1 [phone] Reason for Visit * Reason Onset Date Comments Other 04/21/2011 MAP reorder Encounter Details Date Type Department Care Team (Late st Contact Info) Description 04/21/2011 [place] [phone] Tegan Austin Other (MAP reorder) Social History [...] to request a Lidoderm reorder. I called [employer] and placed an order for Lidoderm Patches (5% #90). Order number [id number] [place] [facility] [place] [facility] and[place] arrive within ten business days. I returned Jeannie's call to let her know. documented in this encounter Plan of Treatment Not on file documented as of this encounter Visit Diagnoses Not on filedocumented in this encounter Care Teams Plant Pathologist Relationship Specialty Start Date End Date Aman Lawrence APRN [address] [place] [address] PCP - General 06/16/10 06/27/18 documented as of this encounter
--- OUTSIDE RECORDS SUMMARY | 2024-08-07 14:16 | XMS_ITS | Encounter Summary ---
Author Organization [facility] [place] [address] Care Team Providers Care Blender/Braze Applicator Name Role Phone Aman Lawrence APRN Primary Care Provider [phone] [phone] Encounter Details Date Type Department Care Team (Late st Contact Info) Description 12/04/2010 Surgery [place] [address] Kasia Crouch MD [facility] [place] [address] UPPER GI ENDOSCOPY Social History Tobacco Use [...] vitamins (B COMPLEX-VITAMIN B12) tablet 09/23/2010 11/19/2016 mulkwbpiogfc-aqov-jgzo rals (COMPLETE MULTIVITAMIN) Tab tablet 1 Tablet(s), PO, Once daily 09/23/2010 11/19/2016 calcium citrate-vitamin D (CITRACAL+D) 315-200 mg-unit per tablet 2 Tablet(s), PO, Twice daily 09/23/2010 11/19/2016 ergocalciferol (VITAMIN D) 50,000 unit capsule [id number], PO, TWICE a week 09/23/2010 11/19/2016 documented [...] RN) documented in this encounter Care Teams Blender/Braze Applicator Relationship Specialty Start Date End Date Aman Lawrence APRN [address] [place] [address] PCP - General 06/16/10 06/27/18 documented as of this encounter
--- OUTSIDE RECORDS SUMMARY | 2024-08-07 14:16 | XMS_ITS | Encounter Summary ---
Author Organization [facility] [place] [address] Care Team Providers Care Pharmacy Affairs Assistant Name Role Phone Yisel Marroquin MD Primary Care Provider Unavail able Encounter Details Date Type Department Care Team (Late st Contact Info) Description 10/11/2011 Orders Only Radiology and Cardiology Results [address] [place] [address] Apd Conversion, Results Provider, Social [...] filedocumented in this encounter Care Teams Pharmacy Affairs Assistant Relationship Specialty Start Date End Date Yisel Marroquin MD PCP - General 11/13/18 03/05/19 documented as of this encounter
--- OUTSIDE RECORDS SUMMARY | 2024-08-07 14:16 | XMS_ITS | Encounter Summary ---
[place] [address] Care Team Providers Care Regulatory Lead Name Role Phone Yisel Marroquin MD Primary Care Provider Unavail able Encounter Details Date Type Department Care Team (Late st Contact Info) Description 10/11/2011 Orders Only Radiology and Cardiology Results [address] [place] [address] Apd Conversion, Results Provider, Social [...] filedocumented in this encounter Care Teams Regulatory Lead Relationship Specialty Start Date End Date Yisel Marroquin MD PCP - General General Internal Medicine 03/06/19 0 documented as of this encounter
--- OUTSIDE RECORDS SUMMARY | 2024-08-07 14:17 | XMS_ITS | Encounter Summary ---
Author Organization [facility] [place] [address] Care Team Providers Care Early Childhood Educator Aide Name Role Phone Aman Lawrence APRN Primary Care Provider +1 -[phone] Encounter Details Date Type Department Care Team (Late st Contact Info) Description 08/24/2010 8:00 AM EST Procedure visit [place] [address] Social History Tobacco Use Types Packs/Day Years Used Date Smoking Tobacco: Never Assessed Sex and Gender Information Value Date Recorded Sex Assigned at Not on file Gender Identity Not on file Sexual Orientation Not on file documented as of this encounter Plan of Treatment Not on file documented as of this encounter Visit Diagnoses Not on filedocumented in this encounter Care Teams Early Childhood Educator Aide Relationship Specialty Start Date End Date Aman Lawrence [place] [address] PCP - General 06/16/10 06/27/18 documented as of this encounter
--- OUTSIDE RECORDS SUMMARY | 2024-08-07 14:17 | XMS_ITS | Encounter Summary ---
Author Organization [facility] [place] [address] Care Team Providers Care Criminal Investigator Name Role Phone Yisel Marroquin MD Primary Care Provider Unavail able Encounter Details Date Type Department Care Team (Late st Contact Info) Description 11/03/2007 Orders Only Radiology and Cardiology Results [address] [place] [address] Apd Conversion, Results Provider, Social [...] on filedocumented in this encounter Care Teams Criminal Investigator Relationship Specialty Start Date End Date Yisel Marroquin MD PCP - General General Internal Medicine 03/06/19 0 documented as of this encounter
--- OUTSIDE RECORDS SUMMARY | 2024-08-07 14:17 | XMS_ITS | Encounter Summary ---
Author Organization [facility] [place] [address] Care Team Providers Care Bomb Squad Commander Name Role Phone Aman Lawrence APRN Primary Care Provider +1 -[phone] Encounter Details Date Type Department Care Team (Late st Contact Info) Description 07/30/2010 2:30 PM EST Office Visit Functional Denominational Program [place] [address] Bong Cabrera MD Social History Tobacco Use [...] on filedocumented in this encounter Care Teams Bomb Squad Commander Relationship Specialty Start Date End [place] [address] PCP - General 06/16/10 06/27/18 documented as of this encounter
--- OUTSIDE RECORDS SUMMARY | 2024-08-07 14:17 | XMS_ITS | Encounter Summary ---
Author Organization [facility] [place] [address] Care Team Providers Care Market Risk Analyst Name Role Phone Aman Lawrence APRN Primary Care Provider +1 -[phone] Encounter Details Date Type Department Care Team (Late st Contact Info) Description 07/30/2010 9:00 AM EST Office Visit Functional Lutheran Program [place] [address] Tawnya Allison Social History Tobacco Use Types [...] in this encounter Care Teams Market Risk Analyst Relationship Specialty Start Date End [place] [address] PCP - General 06/16/10 06/27/18 documented as of this encounter
--- OUTSIDE RECORDS SUMMARY | 2024-08-07 14:17 | XMS_ITS | Encounter Summary ---
Author Organization [facility] [place] [address] Care Team Providers Care Health Sciences Program Coordinator Name Role Phone Aman Lawrence APRN Primary Care Provider +1 -[phone] Encounter Details Date Type Department Care Team (Late st Contact Info) Description 08/13/2010 7:55 AM EST Office Visit Functional Shinto Program [place] [address] Ananth Sesay, PT Social History Tobacco Use [...] filedocumented in this encounter Care Teams Health Sciences Program Coordinator Relationship Specialty Start Date End Date Aman Lawrence [place] [address] PCP - General 06/16/10 06/27/18 documented as of this encounter
--- OUTSIDE RECORDS SUMMARY | 2024-08-07 14:17 | XMS_ITS | Encounter Summary ---
Author Organization [facility] [place] [address] Care Team Providers Care Squaring Machine Operator Name Role Phone Aman Lawrence APRN Primary Care Provider +1 -[phone] Encounter Details Date Type Department Care Team (Late st Contact Info) Description 08/06/2010 11:00 AM EST Follow-[place] [id number] Social History Tobacco Use Types Packs/Day Years Used Date Smoking Tobacco: Never Assessed Sex and Gender Information Value Date Recorded Sex Assigned at Not on file Gender Identity Not on file Sexual Orientation Not on file documented as of this encounter Plan of Treatment Not on file documented as of this encounter Visit Diagnoses Not on filedocumented in this encounter Care Teams Squaring Machine Operator Relationship Specialty Start Date End Date Aman Lawrence [place] [address] PCP - General 06/16/10 06/27/18 documented as of this encounter
--- OUTSIDE RECORDS SUMMARY | 2024-08-07 14:17 | XMS_ITS | Encounter Summary ---
Author Organization [facility] [place] [address] Care Team Providers Care Turntable Engineer Name Role Phone Aman Lawrence APRN Primary Care Provider +1 -[phone] Encounter Details Date Type Department Care Team (Late st Contact Info) Description 07/31/2010 2:30 PM EST Office Visit Functional Yazdanism Program [place] [address] Bong Cabrera MD Social History Tobacco Use [...] on filedocumented in this encounter Care Teams Turntable Engineer Relationship Specialty Start Date End [place] [address] PCP - General 06/16/10 06/27/18 documented as of this encounter
--- OUTSIDE RECORDS SUMMARY | 2024-08-07 14:17 | XMS_ITS | Encounter Summary ---
[place] [address] Care Team Providers Care Physician'S Assistant Name Role Phone Unavailable Primary Care Provider Unavailabl e Encounter Details Date Type Department Care Team (Late st Contact Info) Description 05/28/2010 1:00 PM EDT Office [place] [address] Unknown None Anabell Simpson, PT Social History [...]
--- OUTSIDE RECORDS SUMMARY | 2024-08-07 14:17 | XMS_ITS | Encounter Summary ---
Author Organization [facility] [place] [address] Care Team Providers Care Pharmacy Graduate Intern Name Role Phone Aman Lawrence APRN Primary Care Provider +1 -[phone] Encounter Details Date Type Department Care Team (Late st Contact Info) Description 08/03/2010 7:55 AM EST Office Visit Functional Cheondoism Program [place] [address] Ananth Sesay, PT Social History Tobacco Use [...] filedocumented in this encounter Care Teams Pharmacy Graduate Intern Relationship Specialty Start Date End Date Aman Lawrence [place] [address] PCP - General 06/16/10 06/27/18 documented as of this encounter
--- OUTSIDE RECORDS SUMMARY | 2024-08-07 14:17 | XMS_ITS | Encounter Summary ---
Author Organization [facility] [place] [address] Care Team Providers Care Purchasing Clerk Name Role Phone Aman Lawrence APRN Primary Care Provider +1 -[phone] Encounter Details Date Type Department Care Team (Late st Contact Info) Description 08/03/2010 8:00 AM EST Office Visit Functional Congregational Program [place] [address] Tawnya Allison Social History Tobacco Use Types [...] on filedocumented in this encounter Care Teams Purchasing Clerk Relationship Specialty Start Date End [place] [address] PCP - General 06/16/10 06/27/18 documented as of this encounter
--- OUTSIDE RECORDS SUMMARY | 2024-08-07 14:17 | XMS_ITS | Encounter Summary ---
Author Organization [facility] [place] [address] Care Team Providers Care Room Service Bellhop Name Role Phone Aman Lawrence APRN Primary Care Provider +1 -[phone] Encounter Details Date Type Department Care Team (Late st Contact Info) Description 08/05/2010 7:55 AM EST Office Visit Functional Roman Catholic Program [place] [address] Ananth Sesay, PT Social History Tobacco Use [...] on filedocumented in this encounter Care Teams Room Service Bellhop Relationship Specialty Start Date End Date Aman Lawrence [place] [address] PCP - General 06/16/10 06/27/18 documented as of this encounter
--- OUTSIDE RECORDS SUMMARY | 2024-08-07 14:17 | XMS_ITS | Encounter Summary ---
Author Organization [facility] [place] [address] Care Team Providers Care Environmental Property Assessor Name Role Phone Aman Lawrence APRN Primary Care Provider +1 -[phone] Encounter Details Date Type Department Care Team (Late st Contact Info) Description 08/06/2010 9:00 AM EST Office Visit Functional Christian Program [place] [address] Tawnya Allison Social History Tobacco Use Types [...] filedocumented in this encounter Care Teams Environmental Property Assessor Relationship Specialty Start Date End Date [place] [address] PCP - General 06/16/10 06/27/18 documented as of this encounter
--- OUTSIDE RECORDS SUMMARY | 2024-08-07 14:17 | XMS_ITS | Encounter Summary ---
Author Organization [facility] [place] [address] Care Team Providers Care Film Processor Name Role Phone Aman Lawrence APRN Primary Care Provider +1 -[phone] Encounter Details Date Type Department Care Team (Late st Contact Info) Description 08/04/2010 9:00 AM EST Office Visit Functional Jain Program [place] [address] Tawnya Allison Social History Tobacco Use Types [...] filedocumented in this encounter Care Teams Film Processor Relationship Specialty Start Date End [place] [address] PCP - General 06/16/10 06/27/18 documented as of this encounter
--- OUTSIDE RECORDS SUMMARY | 2024-08-07 14:17 | XMS_ITS | Encounter Summary ---
Author Organization [facility] [place] [address] Care Team Providers Care Ocularist Name Role Phone Aman Lawrence APRN Primary Care Provider +1 -[phone] Encounter Details Date Type Department Care Team (Late st Contact Info) Description 07/08/2010 9:00 AM EST Office [place] [address] Bong Cabrera MD Discharge Disposition: Home Social [...] on filedocumented in this encounter Care Teams Ocularist Relationship Specialty Start Date End Date Aman Lawrence [place] [address] PCP - General 06/16/10 06/27/18 documented as of this encounter
--- OUTSIDE RECORDS SUMMARY | 2024-08-07 14:17 | XMS_ITS | Encounter Summary ---
Author Organization [facility] [place] [address] Care Team Providers Care Internal Combustion Engine Inspector Name Role Phone Aman Lawrence APRN Primary Care Provider +1 -[phone] Encounter Details Date Type Department Care Team (Late st Contact Info) Description 08/24/2010 8:30 AM EST Office Visit Psychiatry [place] [address] Sadie Chisholm [facility] [address] [place] [address] Social History Tobacco Use Types Packs/Day Years Used Date Smoking Tobacco: Never Assessed Sex and Gender Information Value Date Recorded Sex Assigned at Not on file Gender Identity Not on file Sexual Orientation Not on file documented as of this encounter Plan of Treatment Not on file documented as of this encounter Visit Diagnoses Not on filedocumented in this encounter Care Teams Internal Combustion Engine Inspector Relationship Specialty Start Date End Date Aman Lawrence [place] [address] PCP - General 06/16/10 06/27/18 documented as of this encounter
--- OUTSIDE RECORDS SUMMARY | 2024-08-07 14:17 | XMS_ITS | Encounter Summary ---
Author Organization [facility] [place] [address] Care Team Providers Care Boiler Operator Helper Name Role Phone Aman Lawrence APRN Primary Care Provider +1 -[phone] Encounter Details Date Type Department Care Team (Late st Contact Info) Description 08/07/2010 2:30 PM EST Office Visit Functional Latter-Day Program [place] [address] Caroline Hugo [facility] SOCIAL WORKER [facility] [place] [address] Social History Tobacco Use Types Packs/Day Years Used Date Smoking Tobacco: Never Assessed Sex and Gender Information Value Date Recorded Sex Assigned at Not on file Gender Identity Not on file Sexual Orientation Not on file documented as of this encounter Plan of Treatment Not on file documented as of this encounter Visit Diagnoses Not on filedocumented in this encounter Care Teams Boiler Operator Helper Relationship Specialty Start Date End Date Aman Lawrence APRN [address] [place] [address] PCP - General 06/16/10 06/27/18 documented as of this encounter
--- OUTSIDE RECORDS SUMMARY | 2024-08-07 14:17 | XMS_ITS | Encounter Summary ---
Author Organization [facility] [place] [address] Care Team Providers Care Replanting Machine Operator Name Role Phone Aman Lawrence APRN Primary Care Provider +1 [phone] Encounter Details Date Type Department Care Team (Late st Contact Info) Description 08/10/2010 9:40 AM EST Follow-Up Functional Taoism Program at [facility] [place] [address] Ana Goins, MONITORING TECH [facility] [place] [address] Social History Tobacco Use Types Packs/Day Years Used Date Smoking Tobacco: Never Assessed Sex and Gender Information Value Date Recorded Sex Assigned at Not on file Gender Identity Not on file Sexual Orientation Not on file documented as of this encounter Plan of Treatment Not on file documented as of this encounter Visit Diagnoses Not on filedocumented in this encounter Care Teams Replanting Machine Operator Relationship Specialty Start Date End Date Aman Lawrence [place] [address] PCP - General 06/16/10 06/27/18 documented as of this encounter
--- OUTSIDE RECORDS SUMMARY | 2024-08-07 14:17 | XMS_ITS | Encounter Summary ---
Author Organization [facility]ly [facility] Address [facility] [address] Care Team Providers Care Electronic Publisher Name Role Phone Aman Lawrence APRN Primary Care Provider +1 [phone] Encounter Details Date Type Department Care Team (Latest Contact Info) Description 08/24/2010 7:32 AM EST - 08/24/2010 11:59 PM EST Hospital Encounter XRay at [address] [place] [address] Skinny Gomez MD Discharge Disposition: Home Social [...] filedocumented in this encounter Care Teams Electronic Publisher Relationship Specialty Start Date [place] [address] PCP - General 06/16/10 06/27/18 documented as of this encounter
--- OUTSIDE RECORDS SUMMARY | 2024-08-07 14:17 | XMS_ITS | Encounter Summary ---
Author Organization [facility] [place] [address] Care Team Providers Care Conveyor Belt Installer Name Role Phone Aman Lawrence APRN Primary Care Provider +1 [phone] Encounter Details Date Type Department Care Team (Late st Contact Info) Description 07/08/2010 8:00 AM EST [place] [address] CLINIC, Aman Steele APRN [address] [place] [address] Bong Cabrera MD Bryce, Lydia R Discharge [...] filedocumented in this encounter Care Teams Conveyor Belt Installer Relationship Specialty Start Date End Date Aman Lawrence APRN [address] [place] [address] PCP - General 06/16/10 06/27/18 documented as of this encounter
--- OUTSIDE RECORDS SUMMARY | 2024-08-07 14:17 | XMS_ITS | Encounter Summary ---
Author Organization [facility] [place] [address] Care Team Providers Care Sales Contractor Name Role Phone Aman Lawrence APRN Primary Care Provider +1 [phone] Encounter Details Date Type Department Care Team (Late st Contact Info) Description 07/13/2010 9:00 AM EST [place] [address] Ana Goins, [facility] [place] [address] Social History Tobacco Use Types Packs/Day Years Used Date Smoking Tobacco: Never Assessed Sex and Gender Information Value Date Recorded Sex Assigned at Not on file Gender Identity Not on file Sexual Orientation Not on file documented as of this encounter Plan of Treatment Not on file documented as of this encounter Visit Diagnoses Not on filedocumented in this encounter Care Teams Sales Contractor Relationship Specialty Start Date End Date Aman Lawrence APR[place] [address] PCP - General 06/16/10 06/27/18 documented as of this encounter
--- OUTSIDE RECORDS SUMMARY | 2024-08-07 14:17 | XMS_ITS | Encounter Summary ---
Author Organization [place] [address] Care Team Providers Care Coach Name Role Phone Aman Lawrence APRN Primary Care Provider +1 [phone] Encounter Details Date Type Department Care Team (Latest Contact Info) Description 08/14/2010 1:25 PM EST Procedure visit Functional Bahai Program [place] [address] Bong Cabrera MD Discharge Disposition: Home Social [...] on filedocumented in this encounter Care Teams Coach Relationship Specialty Start Date End Date Aman Lawrence [place] [address] PCP - General 06/16/10 06/27/18 documented as of this encounter
--- OUTSIDE RECORDS SUMMARY | 2024-08-07 14:17 | XMS_ITS | Encounter Summary ---
Author Organization [facility] [place] [address] Care Team Providers Care Filter Tank Tender Helper Name Role Phone Aman Lawrence APRN Primary Care Provider +1 -[phone] Encounter Details Date Type Department Care Team (Late st Contact Info) Description 08/05/2010 9:00 AM EST Office Visit Functional Bahai Program [place] [address] Tawnya Allison Social History Tobacco Use Types [...] on filedocumented in this encounter Care Teams Filter Tank Tender Helper Relationship Specialty Start Date End Date [place] [address] PCP - General 06/16/10 06/27/18 documented as of this encounter
--- OUTSIDE RECORDS SUMMARY | 2024-08-07 14:17 | XMS_ITS | Encounter Summary ---
[place] [address] Care Team Providers Care Machine Printer Hose Name Role Phone Unavailable Primary Care Provider Unavailabl e Encounter Details Date Type Department Care Team (Late st Contact Info) Description 05/28/2010 2:00 PM EDT Office [place] [address] Anabell Simpson, PT Social History Tobacco Use [...]
--- OUTSIDE RECORDS SUMMARY | 2024-08-07 14:17 | XMS_ITS | Encounter Summary ---
[place] [address] Care Team Providers Care Lumber Sales Supervisor Name Role Phone Aman Lawrence APRN Primary Care Provider +1 [phone] Encounter Details Date Type Department Care Team (Late st Contact Info) Description 08/13/2010 11:00 AM EST Follow-[place] [address] Sidra Del Toro APRN Discharge Disposition: Home [...] Absolute 0.01 0.00 - 0.05 x10(3)/mc L [facility] Blood specimen (specimen) 08/13/2010 12:42 PM EST 08/13/2010 12:58 PM EST Sidra Del Toro APRN HEMATOLOGY ORDERA BLES Performing Organization Address [facility]/ZIP Co de Phone Number [facility] * (ABNORMAL) REFLEX LAB-PTH (08/13/2010 12:42 PM EST) Parathyroid Hormone 66(H) 15 - 65 pg/mL [facility] Comment: Please note the change in reference range from 10-57 pg/mL to 15-65 pg/mL (11/04/2008). Blood specimen (specimen) 08/13/2010 12:42 PM EST 08/13/2010 12:58 PM EST Sidra Del Toro APRN CHEMISTRY ORDERAB LES Performing Organization Address [facility] Co de Phone Number [facility] * (ABNORMAL) VITAMIN D 25 HYDROXY (08/13/2010 12:42 PM EST) 25-Hydroxy D2 <4.0 ng/mL [facility] Comment: Test Performed by: [place] [address] Bi Tri Operator: Kimberly Antonio, Ph.D. 25-Hydroxy D3 11 ng/mL [facility] Comment: Test Performed by: [place] [address] Bi Tri Operator: Kimberly Antonio, Ph.D. Vitamin D Total 25 OH 11(L) ng/mL [facility] Comment: Interpretation: 10-24 (mild to moderate deficiency) -- REFERENCE VALUE -- 25-HYDROXY D TOTAL (D2+D3) Optimum levels in the normal population are 25-80 Test Performed by: [place] [address] Bi Tri Operator: Kimberly Antonio, Ph.D. Blood specimen (specimen) 08/13/2010 12:42 PM EST 08/13/2010 2:17 PM EST Sidra Del Toro APRN CHEMISTRY ORDERAB LES Performing Organization Address [facility] Co de Phone Number [facility] * (ABNORMAL) VITAMIN B1, WHOLE BLOOD (08/13/2010 12:42 PM EST) Vit B1 Lvl Wb (NOVEMBER) 82(L) 87 - 280 nmol/L [facility] Comment: Test Performed by [facility] [place], [facility], [address] [place] [address] Patricio Jolly M.D., Ph.D., Director of Laboratories , CLIA [id number] Blood specimen (specimen) 08/13/2010 12:42 PM EST 08/13/2010 1:25 PM EST Sidra Del Toro APRN LAB SEND OUT ORDE RABLES Performing Organization Address [facility] Co wy Phone Number [facility] * (ABNORMAL) PREALBUMIN (08/13/2010 12:42 PM EST) Prealbumin 14(L) 20 - 40 mg/dL [facility] Comment: Prealbumin levels are generally lower in the pediatric population; adult concentrations are usually attained near puberty. Blood specimen (specimen) 08/13/2010 12:42 PM EST 08/13/2010 12:58 PM EST Sidra Del Toro APRN CHEMISTRY ORDERAB LES Performing Organization Address [facility] Co de Phone Number [facility] * VITAMIN B12 (08/13/2010 12:42 PM EST) Vitamin B12 789 207 - 974 pg/mL [facility] Blood specimen (specimen) 08/13/2010 12:42 PM EST 08/13/2010 12:58 PM EST Sidra Del Toro APRN CHEMISTRY ORDERAB LES Performing Organization Address City/[facility] Co de Phone Number [facility] * (ABNORMAL) VITAMIN A (08/13/2010 12:42 PM EST) Vitamin A (NOVEMBER) 27.8(L) 32.5 - 78.0 mcg/dL [facility] Comment: Test Performed by: [facility] [place] [address] Bi Tri Operator: Kimberly Antonio, Ph.D. Blood specimen (specimen) 08/13/2010 12:42 PM EST 08/13/2010 2:17 PM EST Sidra Del Toro APRN LAB SEND OUT ORDE RABLES Performing Organization Address [facility] Co de Phone Number [facility] * FOLATE RBC (08/13/2010 12:42 PM EST) Hematocrit 36.8 34.0 - 45.0 % [facility] RBC Folate 590 460 - 1500 ng/mL [facility] Blood specimen (specimen) 08/13/2010 12:42 PM EST 08/13/2010 12:58 PM EST Sidra Del Toro APRN CHEMISTRY ORDERAB LES Performing Organization Address City/[facility]/ZIP Co de Phone Number [facility] * [...] 08/13/2010 12:58 PM EST Sidra Del Toro ORDNANCE KEEPER CHEMISTRY ORDERAB LES Performing Organization Address City/[facility]/ZIP Co de Phone Number [facility] * (ABNORMAL) IRON AND TIBC (08/13/2010 12:42 PM EST) Iron 21(L) 30 - 150 mcg/dL [facility] TIBC 368 250 - 450 mcg/dL [facility] Iron Saturation 6(L) 20 - 50 % [facility] Blood specimen (specimen) 08/13/2010 12:42 PM EST 08/13/2010 12:58 PM EST Sidra T Alverto ORDNANCE KEEPER CHEMISTRY ORDERAB LES Performing Organization Address [facility] Co de Phone Number [facility] * (ABNORMAL) FERRITIN (08/13/2010 12:42 PM EST) Ferritin 12(L) 15 - 150 ng/mL [facility] Comment: Pediatric reference ranges not verified at [facility], interpret with caution. Reference ranges for females greater than 50 years of age approach values for men, i.e., 30-400 ng/mL. Blood specimen (specimen) 08/13/2010 12:42 PM EST 08/13/2010 12:58 PM EST Sidra T Alverto ORDNANCE KEEPER CHEMISTRY ORDERAB LES Performing Organization Address City/[facility]/ZIP Co de Phone Number [facility] * [...] APRN HEMATOLOGY ORDERA BLES Performing Organization Address City/State/[facility] Co de Phone Number [facility] documented in this encounter Visit Diagnoses Not on filedocumented in this encounter Care Teams Lumber Sales Supervisor Relationship Specialty Start Date End Date Aman Lawrence [place] [address] PCP - General 06/16/10 06/27/18 documented as of this encounter
--- OUTSIDE RECORDS SUMMARY | 2024-08-07 14:17 | XMS_ITS | Encounter Summary ---
Author Organization [facility] [place] [address] Care Team Providers Care Sample Room Supervisor Name Role Phone Aman Lawrence APRN Primary Care Provider +1 -[phone] Encounter Details Date Type Department Care Team (Latest Contact Info) Description 07/28/2010 8:45 AM EST Procedure visit [place] [address] Bong Cabrera MD Discharge Disposition: Home Social [...] on filedocumented in this encounter Care Teams Sample Room Supervisor Relationship Specialty Start Date End Date Aman Lawrence [place] [address] PCP - General 06/16/10 06/27/18 documented as of this encounter
--- OUTSIDE RECORDS SUMMARY | 2024-08-07 14:17 | XMS_ITS | Encounter Summary ---
Author Organization [facility] [place] [address] Care Team Providers Care Flotation Tank Operator Name Role Phone Yisel Marroquin MD Primary Care Provider Unavail able Encounter Details Date Type Department Care Team (Late st Contact Info) Description 11/14/2006 Orders Only Radiology and Cardiology Results [address] [place] [address] Apd Conversion, Results Provider, [...] on filedocumented in this encounter Care Teams Flotation Tank Operator Relationship Specialty Start Date End Date Yisel Marroquin MD PCP - General General Internal Medicine 03/06/19 0 documented as of this encounter
--- OUTSIDE RECORDS SUMMARY | 2024-08-07 14:17 | XMS_ITS | Encounter Summary ---
Author Organization [place] [address] Care Team Providers Care Director Part Name Role Phone Aman Lawrence APRN Primary Care Provider +1 -[phone] Encounter Details Date Type Department Care Team (Late st Contact Info) Description 07/29/2010 7:55 AM EST Office Visit Functional Shinto Program [place] [address] Ananth Sesay, PT Social History Tobacco Use [...] filedocumented in this encounter Care Teams Director Part Relationship Specialty Start Date End Date Aman Lawrence [place] [address] PCP - General 06/16/10 06/27/18 documented as of this encounter
--- OUTSIDE RECORDS SUMMARY | 2024-08-07 14:17 | XMS_ITS | Encounter Summary ---
Author Organization [facility] [place] [address] Care Team Providers Care Riding Coach Name Role Phone Aman Lawrence APRN Primary Care Provider +1 -[phone] Encounter Details Date Type Department Care Team (Late st Contact Info) Description 08/13/2010 8:30 AM EST Office Visit Functional Gnosticist Program [place] [address] Tawnya Allison Social History Tobacco Use Types [...] on filedocumented in this encounter Care Teams Riding Coach Relationship Specialty Start Date End [place] [address] PCP - General 06/16/10 06/27/18 documented as of this encounter
--- OUTSIDE RECORDS SUMMARY | 2024-08-07 14:17 | XMS_ITS | Encounter Summary ---
Author Organization [facility] [place] [address] Care Team Providers Care Retort Operator Name Role Phone Aman Lawrence APRN Primary Care Provider +1 -[phone] Encounter Details Date Type Department Care Team (Latest Contact Info) Description 07/29/2010 1:20 PM EST Procedure visit Functional Jainism Program [place] [address] Bong Cabrera MD Discharge Disposition: Home Social [...] on filedocumented in this encounter Care Teams Retort Operator Relationship Specialty Start Date End Date Aman Lawrence [place] [address] PCP - General 06/16/10 06/27/18 documented as of this encounter
--- OUTSIDE RECORDS SUMMARY | 2024-08-07 14:17 | XMS_ITS | Encounter Summary ---
Author Organization [facility] [place] [address] Care Team Providers Care Machine Stuffer Automatic Name Role Phone Aman Lawrence APRN Primary Care Provider +1 -[phone] Encounter Details Date Type Department Care Team (Late st Contact Info) Description 07/30/2010 7:55 AM EST Office Visit Functional Mandaen Program [place] [address] Ananth Sesay, PT Social History Tobacco Use [...] filedocumented in this encounter Care Teams Machine Stuffer Automatic Relationship Specialty Start Date End Date Aman Lawrence [place] [address] PCP - General 06/16/10 06/27/18 documented as of this encounter
--- OUTSIDE RECORDS SUMMARY | 2024-08-07 14:17 | XMS_ITS | Encounter Summary ---
Author Organization [facility] Address [address] [place] [address] Care Team Providers Care Mortuary Beautician Name Role Phone Yisel Marroquin MD Primary Care Provider Unavail able Encounter Details Date Type Department Care Team (Late st Contact Info) Description 02/26/2009 Interpretation Only Radiology [address] [place] [address] Unknown None Social History Tobacco Use Types [...] 10:50 AM EDT APD Historical Result Principal Sewer Line Photo Inspector: ??MAUREEN ??B CHEST - PA AND LATERAL: [...] focal abnormality seen. Maureen Enamorado MD, FACR [facility] [id number] CC: Procedure Note Unknown - 01/22/2019 APD Historical Result Principal Sewer Line Photo Inspector: MAUREEN Garrido CHEST - PA AND LATERAL: [...] focal abnormality seen. Maureen Enamorado MD, FACR [facility] [id number] CC: Unknown IMG DX ORDERABLES documented in this encounter Visit Diagnoses Not on filedocumented in this encounter Care Teams Mortuary Beautician Relationship Specialty Start Date End Date Yisel Marroquin MD PCP - General 11/13/18 03/05/19 documented as of this encounter
--- OUTSIDE RECORDS SUMMARY | 2024-08-07 14:17 | XMS_ITS | Encounter Summary ---
Author Organization [facility] Address [facility] [place] [address] Care Team Providers Care Banking Manager Name Role Phone Yisel Marroquin MD Primary Care Provider Unavail able Encounter Details Date Type Department Care Team (Late st Contact Info) Description 05/19/2009 Interpretation Only Radiology [address] [place] [address] Unknown None Social History Tobacco Use Types [...] 10:20 AM EDT APD Historical Result Principal Production Clerk: ??TEGAN ?MACHELLE MR OF THE CERVICAL SPINE: [...] the annulus fibrosus. Tegan Lynch MD KG/ma [id number] CC: Procedure Note Unknown - 01/22/2019 APD Historical Result Principal Production Clerk: TEGAN LYNCH MR OF THE CERVICAL SPINE: At 1.5 raz, multiplanar imaging is obtained through the cervical spineutilizing both short and long TR pulse sequences. Examination is performed in a [id number] with neck pain and bilateral arm tingling. [...] of the annulusfibrosus. Tegan Lynch MD KG/ma [id number] CC: Unknown IMG MRI ORDERABLES documented in this encounter Visit Diagnoses Not on filedocumented in this encounter Care Teams Banking Manager Relationship Specialty Start Date End Date Yisel Marroquin MD PCP - General 11/13/18 03/05/19 documented as of this encounter
--- OUTSIDE RECORDS SUMMARY | 2024-08-07 14:17 | XMS_ITS | Encounter Summary ---
Author Organization [facility] [place] [address] Care Team Providers Care Flooring Professional Name Role Phone Aman Lawrence APRN Primary Care Provider +1 -[phone] Encounter Details Date Type Department Care Team (Late st Contact Info) Description 08/07/2010 9:00 AM EST Office Visit Functional Muslim Program [place] [address] Tawnya Allison Social History Tobacco Use Types [...] on filedocumented in this encounter Care Teams Flooring Professional Relationship Specialty Start Date End Date [place] [address] PCP - General 06/16/10 06/27/18 documented as of this encounter
--- OUTSIDE RECORDS SUMMARY | 2024-08-07 14:17 | XMS_ITS | Encounter Summary ---
Author Organization [facility] [place] [address] Care Team Providers Care Marketing Analytics Specialist Name Role Phone Aman Lawrence APRN Primary Care Provider +1 -[phone] Encounter Details Date Type Department Care Team (Late st Contact Info) Description 08/12/2010 7:55 AM EST Office Visit Functional Pentecostal Program [place] [address] Ananth Sesay, PT Social History Tobacco Use [...] filedocumented in this encounter Care Teams Marketing Analytics Specialist Relationship Specialty Start Date End Date Aman Lawrence [place] [address] PCP - General 06/16/10 06/27/18 documented as of this encounter
--- OUTSIDE RECORDS SUMMARY | 2024-08-07 14:17 | XMS_ITS | Encounter Summary ---
Author Organization [facility] [place] [address] Care Team Providers Care Clinical Scientist Name Role Phone Aman Lawrence APRN Primary Care Provider +1 -[phone] Encounter Details Date Type Department Care Team (Late st Contact Info) Description 08/03/2010 2:30 PM EST Office Visit Functional Anabaptism Program [place] [address] Caroline Hugo HOME FURNISHINGS SALES REPRESENTATIVE [facility] [place] [address] Social History Tobacco Use Types Packs/Day Years Used Date Smoking Tobacco: Never Assessed Sex and Gender Information Value Date Recorded Sex Assigned at Not on file Gender Identity Not on file Sexual Orientation Not on file documented as of this encounter Plan of Treatment Not on file documented as of this encounter Visit Diagnoses Not on filedocumented in this encounter Care Teams Clinical Scientist Relationship Specialty Start Date End Date Aman Lawrence APRN [place] [address] PCP - General 06/16/10 06/27/18 documented as of this encounter
--- OUTSIDE RECORDS SUMMARY | 2024-08-07 14:17 | XMS_ITS | Encounter Summary ---
Author Organization [facility] [place] [address] Care Team Providers Care Adult Crossing Guard Name Role Phone Aman Lawrence APRN Primary Care Provider +1 -[phone] Encounter Details Date Type Department Care Team (Late st Contact Info) Description 06/23/2010 1:00 PM EST [place] [address] Dhruv Walker, PA Social History Tobacco Use [...] filedocumented in this encounter Care Teams Adult Crossing Guard Relationship Specialty Start Date End Date Aman Lawrence [place] [address] PCP - General 06/16/10 06/27/18 documented as of this encounter
--- OUTSIDE RECORDS SUMMARY | 2024-08-07 14:17 | XMS_ITS | Encounter Summary ---
Author Organization [facility] [place] [address] [address] Care Team Providers Care Reproduction Technician Name Role Phone Aman Lawrence APRN Primary Care Provider +1 -[phone] Encounter Details Date Type Department Care Team (Late st Contact Info) Description 07/28/2010 7:45 AM EST Office Visit Functional Quaker Program [place] [address] Ananth Sesay M, PT Unknown None Discharge [...] on filedocumented in this encounter Care Teams Reproduction Technician Relationship Specialty Start Date End Date Aman Lawrence [place] [address] PCP - General 06/16/10 06/27/18 documented as of this encounter
--- OUTSIDE RECORDS SUMMARY | 2024-08-07 14:17 | XMS_ITS | Encounter Summary ---
Author Organization [facility] [place] [place] [address] Care Team Providers Care Flow Coordinator Name Role Phone Aman Lawrence APRN Primary Care Provider +1 -[phone] Encounter Details Date Type Department Care Team (Late st Contact Info) Description 06/16/2010 3:00 PM EST Office Visit [place] [address] Adal Oliva, OT [facility] [place] [address] Social History Tobacco Use Types Packs/Day Years Used Date Smoking Tobacco: Never Assessed Sex and Gender Information Value Date Recorded Sex Assigned at Not on file Gender Identity Not on file Sexual Orientation Not on file documented as of this encounter Plan of Treatment Not on file documented as of this encounter Visit Diagnoses Not on filedocumented in this encounter Care Teams Flow Coordinator Relationship Specialty Start Date End [place] [address] PCP - General 06/16/10 06/27/18 documented as of this encounter
--- OUTSIDE RECORDS SUMMARY | 2024-08-07 14:17 | XMS_ITS | Encounter Summary ---
Author Organization [facility] [place] [address] Care Team Providers Care Lumber Sticker Name Role Phone Aman Lawrence APRN Primary Care Provider +1 -[phone] Encounter Details Date Type Department Care Team (Late st Contact Info) Description 08/14/2010 8:00 AM EST Office Visit Functional Sikhism Program [place] [address] Tawnya Allison Social History Tobacco Use Types [...] filedocumented in this encounter Care Teams Lumber Sticker Relationship Specialty Start Date End [place] [address] PCP - General 06/16/10 06/27/18 documented as of this encounter
--- OUTSIDE RECORDS SUMMARY | 2024-08-07 14:17 | XMS_ITS | Encounter Summary ---
Author Organization [facility] [place] [address] Care Team Providers Care Beater Room Supervisor Name Role Phone Aman Lawrence APRN Primary Care Provider +1 -[phone] Encounter Details Date Type Department Care Team (Late st Contact Info) Description 08/04/2010 7:55 AM EST Office Visit Functional Latter Day Program [place] [address] Ananth Sesay, PT Social History Tobacco Use [...] on filedocumented in this encounter Care Teams Beater Room Supervisor Relationship Specialty Start Date End Date Aman Lawrence [place] [address] PCP - General 06/16/10 06/27/18 documented as of this encounter
--- OUTSIDE RECORDS SUMMARY | 2024-08-07 14:17 | XMS_ITS | Encounter Summary ---
Author Organization [facility] [place] [address] Care Team Providers Care Supervisor Boat Outfitting Name Role Phone Aman Lawrence APRN Primary Care Provider +1 -[phone] Encounter Details Date Type Department Care Team (Late st Contact Info) Description 08/07/2010 7:55 AM EST Office Visit Functional Lutheran Program [place] [address] Ananth Sesay, PT Social History Tobacco Use [...] filedocumented in this encounter Care Teams Supervisor Boat Outfitting Relationship Specialty Start Date End Date Aman Lawrence [place] [address] PCP - General 06/16/10 06/27/18 documented as of this encounter
--- OUTSIDE RECORDS SUMMARY | 2024-08-07 14:17 | XMS_ITS | Encounter Summary ---
Author Organization [facility] [place] [address] Care Team Providers Care Precast Worker Name Role Phone Aman Lawrence APRN Primary Care Provider +1 -[phone] Encounter Details Date Type Department Care Team (Late st Contact Info) Description 08/10/2010 9:00 AM EST Office Visit Functional Restorationism Program [place] [address] Tawnya Allison Social History Tobacco Use Types [...] on filedocumented in this encounter Care Teams Precast Worker Relationship Specialty Start Date End [place] [address] PCP - General 06/16/10 06/27/18 documented as of this encounter
--- OUTSIDE RECORDS SUMMARY | 2024-08-07 14:17 | XMS_ITS | Encounter Summary ---
Author Organization [facility] [place] [address] Care Team Providers Care Clinical Documentation Nurse Name Role Phone Aman Lawrence APRN Primary Care Provider +1 -[phone] Encounter Details Date Type Department Care Team (Late st Contact Info) Description 09/23/2010 7:00 AM EST Office [place] [address] CLINIC, Aman Steele APRN [address] [place] [address] Bong Cabrera MD Bryce, Lydia R Social [...] filedocumented in this encounter Care Teams Clinical Documentation Nurse Relationship Specialty Start Date End Date Aman Lawrence APRN [address] [place] [address] PCP - General 06/16/10 06/27/18 documented as of this encounter
--- OUTSIDE RECORDS SUMMARY | 2024-08-07 14:17 | XMS_ITS | Encounter Summary ---
Author Organization [facility] [place] [address] Care Team Providers Care Manager Wellness Name Role Phone Yisel Marroquin MD Primary Care Provider Unavail able Encounter Details Date Type Department Care Team (Late st Contact Info) Description 11/03/2007 Orders Only Radiology and Cardiology Results [address] [place] [address] Apd Conversion, Results Provider, Social [...] filedocumented in this encounter Care Teams Manager Wellness Relationship Specialty Start Date End Date Yisel Marroquin MD PCP - General General Internal Medicine 03/06/19 0 documented as of this encounter
--- OUTSIDE RECORDS SUMMARY | 2024-08-07 14:17 | XMS_ITS | Encounter Summary ---
Author Organization [facility] [place] [address] Care Team Providers Care Writing Manager Name Role Phone Aman Lawrence APRN Primary Care Provider +1 -[phone] Encounter Details Date Type Department Care Team (Late st Contact Info) Description 08/11/2010 9:00 AM EST Office Visit Functional Mu-Ism Program [place] [address] Tawnya Allison Social History Tobacco Use Types [...] on filedocumented in this encounter Care Teams Writing Manager Relationship Specialty Start Date End [place] [address] PCP - General 06/16/10 06/27/18 documented as of this encounter
--- OUTSIDE RECORDS SUMMARY | 2024-08-07 14:17 | XMS_ITS | Encounter Summary ---
Author Organization [facility] [place] [address] Care Team Providers Care Guard Immigration Name Role Phone Aman Lawrence APRN Primary Care Provider +1 -[phone] Encounter Details Date Type Department Care Team (Late st Contact Info) Description 08/05/2010 2:30 PM EST Office Visit Functional Advent Program [place] [address] Bong Cabrera MD Social History Tobacco Use [...] on filedocumented in this encounter Care Teams Guard Immigration Relationship Specialty Start Date End [place] [address] PCP - General 06/16/10 06/27/18 documented as of this encounter
--- OUTSIDE RECORDS SUMMARY | 2024-08-07 14:17 | XMS_ITS | Encounter Summary ---
Author Organization [facility] [place] [address] Care Team Providers Care Tailer In Name Role Phone Aman Lawrence APRN Primary Care Provider +1 -[phone] Encounter Details Date Type Department Care Team (Late st Contact Info) Description 07/13/2010 8:00 AM EST Office Visit [place] [address] Tawnya Allison Social History Tobacco Use Types [...] on filedocumented in this encounter Care Teams Tailer In Relationship Specialty Start Date End [place] [address] PCP - General 06/16/10 06/27/18 documented as of this encounter
--- OUTSIDE RECORDS SUMMARY | 2024-08-07 14:17 | XMS_ITS | Encounter Summary ---
Author Organization [facility] [place] [address] Care Team Providers Care Outpatient Receptionist Name Role Phone Yisel Marroquin MD Primary Care Provider Unavail able Encounter Details Date Type Department Care Team (Late st Contact Info) Description 08/17/2005 Orders Only Radiology and Cardiology Results [address] [place] [address] Apd Conversion, Results Provider, Social [...] on filedocumented in this encounter Care Teams Outpatient Receptionist Relationship Specialty Start Date End Date Yisel Marroquin MD PCP - General General Internal Medicine 03/06/19 0 documented as of this encounter
--- OUTSIDE RECORDS SUMMARY | 2024-08-07 14:17 | XMS_ITS | Encounter Summary ---
Author Organization [facility] [place] [address] Care Team Providers Care Traffic Representative Name Role Phone Aman Lawrence APRN Primary Care Provider +1 -[phone] Encounter Details Date Type Department Care Team (Late st Contact Info) Description 08/10/2010 7:55 AM EST Office Visit Functional Lutheran Program [place] [address] Ananth Sesay, PT Social History Tobacco Use [...] on filedocumented in this encounter Care Teams Traffic Representative Relationship Specialty Start Date End Date Aman Lawrence [place] [address] PCP - General 06/16/10 06/27/18 documented as of this encounter
--- OUTSIDE RECORDS SUMMARY | 2024-08-07 14:17 | XMS_ITS | Encounter Summary ---
Author Organization [facility] [place] [address] Care Team Providers Care Computer Operations Manager Name Role Phone Aman Lawrence APRN Primary Care Provider +1 -[phone] Encounter Details Date Type Department Care Team (Late st Contact Info) Description 07/31/2010 7:55 AM EST Office Visit Functional Jain Program [place] [address] Ananth Sesay, PT Social History Tobacco Use [...] filedocumented in this encounter Care Teams Computer Operations Manager Relationship Specialty Start Date End Date Aman Lawrence [place] [address] PCP - General 06/16/10 06/27/18 documented as of this encounter
--- OUTSIDE RECORDS SUMMARY | 2024-08-07 14:17 | XMS_ITS | Encounter Summary ---
Author Organization [facility] [place] [address] Care Team Providers Care Level Vial Inspector And Tester Name Role Phone Aman Lawrence APRN Primary Care Provider +1 -[phone] Encounter Details Date Type Department Care Team (Late st Contact Info) Description 08/11/2010 7:55 AM EST Office Visit Functional Restorationist Program [place] [address] Ananth Sesay, PT Social History Tobacco Use [...] on filedocumented in this encounter Care Teams Level Vial Inspector And Tester Relationship Specialty Start Date End Date Aman Lawrence [place] [address] PCP - General 06/16/10 06/27/18 documented as of this encounter
--- OUTSIDE RECORDS SUMMARY | 2024-08-07 14:17 | XMS_ITS | Encounter Summary ---
Author Organization [facility] [place] [address] Care Team Providers Care Naval Gunfire Liaison Officer Name Role Phone Aman Lawrence APRN Primary Care Provider +1 -[phone] Encounter Details Date Type Department Care Team (Late st Contact Info) Description 08/12/2010 9:00 AM EST Office Visit Functional Gnosticist Program [place] [address] Tawnya Allison Social History Tobacco Use Types [...] on filedocumented in this encounter Care Teams Naval Gunfire Liaison Officer Relationship Specialty Start Date End [place] [address] PCP - General 06/16/10 06/27/18 documented as of this encounter
--- OUTSIDE RECORDS SUMMARY | 2024-08-07 14:17 | XMS_ITS | Encounter Summary ---
Author Organization [facility] [place] [address] Care Team Providers Care Lead Burner Helper Name Role Phone Yisel Marroquin MD Primary Care Provider Unavail able Encounter Details Date Type Department Care Team (Late st Contact Info) Description 08/17/2005 Orders Only Radiology and Cardiology Results [address] [place] [address] Apd Conversion, Results Provider, Social [...] filedocumented in this encounter Care Teams Lead Burner Helper Relationship Specialty Start Date End Date Yisel Marroquin MD PCP - General General Internal Medicine 03/06/19 0 documented as of this encounter
--- OUTSIDE RECORDS SUMMARY | 2024-08-07 14:17 | XMS_ITS | Encounter Summary ---
Author Organization [facility] [place] [address] Care Team Providers Care Lsw Name Role Phone Aman Lawrence APRN Primary Care Provider +1 -[phone] Encounter Details Date Type Department Care Team (Latest Contact Info) Description 08/06/2010 8:00 AM EST Procedure [place] [address] Caroline Hugo AGRICULTURAL ADVISER [facility] [place] [address] Discharge Disposition: Home Social History Tobacco Use [...] on filedocumented in this encounter Care Teams Lsw Relationship Specialty Start Date End Date Aman Lawrence [place] [address] PCP - General 06/16/10 06/27/18 documented as of this encounter
--- OUTSIDE RECORDS SUMMARY | 2024-08-07 14:17 | XMS_ITS | Encounter Summary ---
Author Organization [facility] [place] [address] Care Team Providers Care Nanoscience Technician Name Role Phone Aman Lawrence APRN Primary Care Provider +1 -[phone] Encounter Details Date Type Department Care Team (Late st Contact Info) Description 08/06/2010 7:55 AM EST Office Visit Functional Christianity Program [place] [address] Ananth Sesay, PT Social History Tobacco Use [...] on filedocumented in this encounter Care Teams Nanoscience Technician Relationship Specialty Start Date End Date Aman Lawrence [place] [address] PCP - General 06/16/10 06/27/18 documented as of this encounter
--- OUTSIDE RECORDS SUMMARY | 2024-08-07 14:17 | XMS_ITS | Encounter Summary ---
Author Organization [facility] [address] Care Team Providers Care Extracting Machine Operator Name Role Phone Aman Lawrence APRN Primary Care Provider +1 -[phone] Encounter Details Date Type Department Care Team (Late st Contact Info) Description 07/31/2010 9:00 AM EST Office Visit Functional Episcopalian Program [place] [address] Tawnya Allison Social History Tobacco Use Types [...] on filedocumented in this encounter Care Teams Extracting Machine Operator Relationship Specialty Start Date End [place] [address] PCP - General 06/16/10 06/27/18 documented as of this encounter
--- OUTSIDE RECORDS SUMMARY | 2024-08-07 14:17 | XMS_ITS | Encounter Summary ---
Author Organization [facility] [place] [address] Care Team Providers Care Telehealth Coordinator Name Role Phone Aman Lawrence APRN Primary Care Provider +1 -[phone] Encounter Details Date Type Department Care Team (Late st Contact Info) Description 08/06/2010 2:30 PM EST Office Visit Functional Zoroastrianism Program [place] [address] Caroline Hugo SHAFT REPAIRER [facility] [place] [address] Social History Tobacco Use Types Packs/Day Years Used Date Smoking Tobacco: Never Assessed Sex and Gender Information Value Date Recorded Sex Assigned at Not on file Gender Identity Not on file Sexual Orientation Not on file documented as of this encounter Plan of Treatment Not on file documented as of this encounter Visit Diagnoses Not on filedocumented in this encounter Care Teams Telehealth Coordinator Relationship Specialty Start Date End Date Aman Lawrence [place] [address] PCP - General 06/16/10 06/27/18 documented as of this encounter
--- OUTSIDE RECORDS SUMMARY | 2024-08-07 14:17 | XMS_ITS | Encounter Summary ---
Author Organization [facility] [place] [address] Care Team Providers Care Outreach Counselor Name Role Phone Aman Lawrence APRN Primary Care Provider +1 -[phone] Encounter Details Date Type Department Care Team (Late st Contact Info) Description 08/14/2010 7:55 AM EST Office Visit Functional Congregation Program [place] [address] Ananth Sesay, PT Social History Tobacco Use [...] on filedocumented in this encounter Care Teams Outreach Counselor Relationship Specialty Start Date End Date Aman Lawrence [place] [address] PCP - General 06/16/10 06/27/18 documented as of this encounter
--- OUTSIDE RECORDS SUMMARY | 2024-08-07 14:17 | XMS_ITS | Encounter Summary ---
Author Organization [facility] [place] [address] Care Team Providers Care Supervisor Steffen House Name Role Phone Aman Lawrence APRN Primary Care Provider +1 -[phone] Encounter Details Date Type Department Care Team (Late st Contact Info) Description 08/11/2010 2:30 PM EST Office Visit Functional Gnosticism Program [place] [address] Bong Cabrera MD Social History Tobacco Use [...] filedocumented in this encounter Care Teams Supervisor Steffen House Relationship Specialty Start Date End Date [place] [address] PCP - General 06/16/10 06/27/18 documented as of this encounter
--- OUTSIDE RECORDS SUMMARY | 2024-08-07 14:17 | XMS_ITS | Encounter Summary ---
Author Organization [facility] [place] [address] Care Team Providers Care Bander Hand Name Role Phone Aman Lawrence APRN Primary Care Provider +1 -[phone] Encounter Details Date Type Department Care Team (Late st Contact Info) Description 07/29/2010 9:00 AM EST Office Visit Functional Latter-Day Program [place] [address] Tawnya Allison Social History Tobacco Use Types [...] on filedocumented in this encounter Care Teams Bander Hand Relationship Specialty Start Date End Date [place] [address] PCP - General 06/16/10 06/27/18 documented as of this encounter
--- OUTSIDE RECORDS SUMMARY | 2024-08-07 14:17 | XMS_ITS | Encounter Summary ---
Author Organization [facility] [place] [address] Care Team Providers Care Delivery Driver/Supervisor Name Role Phone Aman Lawrence APRN Primary Care Provider +1 -[phone] Encounter Details Date Type Department Care Team (Late st Contact Info) Description 07/28/2010 7:45 AM EST Office Visit Functional Jewish Program [place] [address] Tawnya Allison Social History Tobacco Use Types [...] on filedocumented in this encounter Care Teams Delivery Driver/Supervisor Relationship Specialty Start Date End Date [place] [address] PCP - General 06/16/10 06/27/18 documented as of this encounter
--- OUTSIDE RECORDS SUMMARY | 2024-08-07 14:17 | XMS_ITS | Encounter Summary ---
Author Organization [facility] [place] [address] Care Team Providers Care Range Conservationist Name Role Phone Aman Lawrence APRN Primary Care Provider +1 -[phone] Encounter Details Date Type Department Care Team (Late st Contact Info) Description 09/23/2010 9:00 AM EST Office [place] [address] Bong Cabrera MD Discharge Disposition: Home Social [...] on filedocumented in this encounter Care Teams Range Conservationist Relationship Specialty Start Date End Date Aman Lawrence [place] [address] PCP - General 06/16/10 06/27/18 documented as of this encounter
[2024-08-07 16:35] LABS: Anion Gap 7.8 mmol/L (3-11); BUN 21 mg/dL (7-18); CO2 30.2 mmol/L (21.0-32.0); Calcium 9.6 mg/dL (8.5-10.1); Chloride 103 mmol/L (98-107); Estimated GFR 62.91 (mL/min/1.73m2); Glucose 155 mg/dL (74-106); Potassium 4.8 mmol/L (3.5-5.1); Sodium 141 mmol/L (136-145)
== END 2024-08-07 14:01 | disposition home or self-care (01) ==
LOC: NCHCN 14:00
PROVIDERS: PCP Nurse Practitioner Family; Visit Provider Nurse Practitioner Family
DX: E66.9 Obesity, unspecified (principal); E87.5 Hyperkalemia
CPT/HCPCS: 80048; 84425

== ENCOUNTER 2024-08-15 13:24 | Outpatient (REF) | payer MEDICARE, MEDICAID, SELFPAY ==
--- OUTSIDE RECORDS SUMMARY | 2024-08-15 13:26 | XMS_ITS | Data Portability ---
Author Organization [place] - [facility] [place] [address] Assessment Encounter Date Assessment Date Assessment LastModified by Organization Details LastModified Time 10/20/2023 10/20/2023 The total time devoted to today's encounter, including both the spuz-ya-ydlm time with the patient and/or family/caregive r and hjv-rozv-hq-fac e time I personally spent is 30 minutes. Follow-up in 6 Months. Call or RTO sooner if needs arise. [facility] Orders: 1. CBCD, iron, ferritin, TIBC, [...] devoted to today's encounter, including both the qqrv-mc-eygq time with the patient and/or family/caregive r and exg-azus-up-fac e time I personally spent is 36 minutes. Flu vaccine: provide today Comirnaty: provide today Td: current due 2027 PCV20: 2021. PPSV23 2016. PPSV23 2007. Shingrix: completed RSV: counseled to get at local pharmacy as desires Pap/ HPV: s/p hys Mammogram: Scheduled next week CRC: order colo DEXA: current; see below Follow-up in 6 Months. Call or RTO sooner if needs arise. [facility] Orders: 1. CBCD, iron, ferritin, TIBC, [...] available Lab urinalysi s, complete 2023 024 [email or web address] [facility] (Registration ), [address] [place] [address] [place], [address], 01/23/2024 11:04:38 microalbu min/creat inine, ratio panel, urine 2023 024 [email or web address] [facility] (Registration ), [address] [place] [address] [place], [address], 01/23/2024 11:04:52 CBC w/ diff 2023 025 [facility] (Registration ), [address] [place] [address] [place], [address], 07/26/2024 08:10:29 iron + TIBC + ferritin, serum 2023 024 [facility] (Registration ), [address] [place] [address] [place], [address], 10/27/2023 14:08:01 CMP, serum or plasma 2023 025 [facility] (Registration ), [address] [place] [address] [place], [address], 07/26/2024 08:15:33 vitamin B12, serum 2023 025 [facility] (Registration ), [address] [place] [address] [place], [address], 07/26/2024 08:20:11 vitamin D, 25-hydrox y, total, serum 2023 025 [facility] (Registration ), [address] [place] [address] [place], [address], 08/01/2024 18:36:56 vitamin B1 (thiamine ), blood 2023 025 [facility] (Registration ), [address] [place] [address] [place], [address], 07/26/2024 08:20:38 HbA1c (hemoglob in A1c), blood 2023 025 [facility] (Registration ), [address] [place] [address] [place], [address], 07/26/2024 08:15:34 PTH (parathyr oid hormone), intact, serum or plasma 2023 025 [email or web address] [facility] (Registration ), [address] [place] [address] [place], [address], 07/26/2024 08:15:34 urinalysi s complete, reflex culture 2023 024 [facility] (Registration ), [address] [place] [address] [place], [address], 10/28/2023 09:06:37 urinalysi s complete, reflex culture 2023 024 [facility] (Registration ), [address] [place] [address] [place], [address], 11/01/2023 08:34:00 urinalysi s complete, reflex culture 2023 024 [facility] (Registration ), [address] [place] [address] [place] [facility] [place], [address], 11/03/2023 11:01:11 urinalysi s complete, reflex culture 2023 024 [facility] (Registration ), [address] [place] [address] [place] [facility] [place], [address], 11/10/2023 12:55:05 urinalysi s complete, reflex culture 2023 024 [email or web address] [facility] (Registration ), [address] [place] [address] [place], [address], 11/17/2023 09:39:13 urinalysi s complete, reflex culture 2023 024 [email or web address] [facility] (Registration ), [address] [place] [address] [place], [address], 11/24/2023 08:17:11 urinalysi s complete, reflex culture 2023 024 [email or web address] [facility] (Registration ), [address] [place] [address] [place], [address], 12/01/2023 10:25:37 urinalysi s complete, reflex culture 2023 024 [email or web address] [facility] (Registration ), [address] [place] [address] [place], [address], 12/15/2023 08:17:14 urinalysi s complete, reflex culture 2023 024 [email or web address] [facility] (Registration ), [address] [place] [address] [place], [address], 12/15/2023 09:51:29 urinalysi s complete, reflex culture 2023 024 [email or web address] [facility] (Registration ), [address] [place] [address] [place] [facility] [place], [address], 12/22/2023 08:41:56 urinalysi s complete, reflex culture 2023 024 [email or web address] [facility] (Registration ), [address] [place] [address] [place] [facility] [place], [address], 12/29/2023 13:36:34 urinalysi s complete, reflex culture 2023 024 [email or web address] [facility] (Registration ), [address] [place] [address] [place], [address], 01/05/2024 09:42:00 urinalysi s complete, reflex culture 2023 024 [email or web address] [facility] (Registration ), [address] [place] [address] [place], [address], 01/12/2024 12:28:35 urinalysi s complete, reflex culture 2023 024 [email or web address] [facility] (Registration ), [address] [place] [address] [place], [address], 01/19/2024 10:53:44 urinalysi s complete, reflex culture 2023 024 [email or web address] [facility] (Registration ), [address] [place] [address] [place], [address], 01/19/2024 10:53:44 TSH, serum, reflex free T4 2023 024 [email or web address] [facility] (Registration ), [address] [place] [address] [place], [address], 11/08/2023 14:16:44 HbA1c (hemoglob in A1c), blood 2023 025 [email or web address] [facility] (Registration ), [address] [place] [address] [place], [address], 08/02/2024 08:33:30 CBC w/ diff [address] Laboratory (Registration ), [address] [place] [address] [place], [address], 07/26/2024 09:25:27 iron + TIBC + ferritin, serum 2023 025 [facility] (Registration ), [address] [place] [address] [place], [address], 07/26/2024 08:15:34 vitamin B12 + folate, serum or blood 2023 025 [facility] [address] [place] [address] [place] [facility] [place], [address], 07/26/2024 08:25:19 vitamin B1 (thiamine ), blood 2023 024 [facility] [address] [place] [address] [place], [address], 04/12/2024 16:55:22 vitamin D, 1,25-dihy droxy, serum [address] Laboratory (Registration ), [address] [place] [address] [place], [address], 07/26/2024 09:25:27 PTH (parathyr oid hormone), intact, serum or plasma 2023 025 [email or web address] [facility] (Registration ), [address] [place] [address] [place], [address], 08/03/2024 13:26:41 CMP, serum or plasma 2023 025 [facility] (Registration ), [address] [place] [address] [place], [address], 08/01/2024 17:57:51 lipid panel, serum [address] Laboratory (Registration ), [address] [place] [address] [place], [address], 07/26/2024 09:25:27 TSH, serum, reflex free T4 2023 025 [facility] (Registration ), [address] [place] [address] [place], [address], 07/26/2024 08:10:29 Referral None recorded. Procedures colonosco py screening (PROC) 2023 024 [facility], [address] [place] [address] , [address], [place], [address], 04/12/2024 12:30:56 Surgeries None recorded. Imaging LDCT, chest, for lung cancer screening - Due in February 142023 024 [facility] (Radiology), [address] [place] [address] [place], [address], 03/02/2024 08:35:13 Medication Orders Miralax 17 gram/dose oral powder 2023 024 [facility], [address] [place] [address], [address], 10/20/2023 09:04:47 docusate sodium 100 mg capsule 2023 024 [facility], [address] [place] [address], [address], 10/20/2023 10:27:53 senna 8.6 mg tablet 2023 024 [facility], [address] [place] [address], [address], 10/20/2023 10:27:53 omeprazol e 40 mg capsule,d elayed release 2023 024 [facility] [place], [address] [place] [address], [address], 10/20/2023 09:04:48 magnesium oxide 400 mg (241.3 mg magnesium ) tablet 2023 024 [place] [place], [address] [place] [address], [address], 04/12/2024 15:50:24 divalproe x 125 mg capsule,d elayed release sprinkle 2023 024 [email or web address], [address] [place] [address], [address], 04/12/2024 15:45:15 Salonpas 3.1 %-10 %-6 % topical patch 2023 024 [facility], [address] [place] [address], [address], 04/12/2024 08:25:39 Nicoderm CQ 14 mg/24 hr daily transderm al patch 2023 024 [place], [address] [place] [address], [address], 07/23/2024 16:09:00 Nicoderm CQ 7 mg/24 hr daily transderm al patch [address] [facility], [address] [place] [address], [place], [address], 07/23/2024 15:28:54 cephalexi n 500 mg capsule 2023 024 Not available 07/23/2024 15:27:13 Patient TargetsNo targets recorded. Patient Instructions Encounter Date Encounter Id Patient Instructions Last Modified By Organization Details Last Modified Time 03/28/2024 [id number] - Continue using the wheeled walker at all times to aid in mobility and prevent falls. - Attend all scheduled appointments with the podiatry specialist for further assessment and fitting for custom footwear. - Report any new or worsening symptoms immediately, particularly related to foot pain or additional falls. [email or web address] Not available 03/28/2024 08:51:21 05/21/2024 [id number] Today, it does appear that there was an abscess/boil to the right labia, that has since opened and drained on it's own. It appears to be improving, but we will treat any surrounding soft tissue infection with an oral antibiotic (cephalexin) 4 times a day for 5 days. This was sent electronically to [facility], and I have also provided a paper prescription that can be faxed if necessary. Continue to use warm, moist compresses, keep the area clean and dry, and return for any fevers, worsening pain, redness, or drainage not responding to treatment discussed. [email or web address] Not available 05/21/2024 12:48:49 Reason for Referral None Reported. Results Created Date Observation Date Name Description Value Unit Range Abnormal Flag Note LastModifiedBy Organization Detail LastModifiedTime 10/27/1910/27/2023 TSH (W/RE F FT4) TSH (w/ref FT4) 2.01 uIU/m L 0.36-3 .74 normal Not Available [facility] [address] [facility] [place], [address] 10/28/2023 10:23:48 01/01/20 24 01/01/2024 URINA LYSIS color Yellow yellow Not Available [facility] [address], [address] 01/01/2024 12:01:17 01/01/20 24 01/01/2024 URINA LYSIS clarity Clear clear Not Available [facility]ak[facility] [address], [address] 01/01/2024 12:01:17 01/01/20 24 01/01/2024 URINA LYSIS specific gravity 1.020 1.005- 1.025 normal Not Available [address] [place], [address] 01/01/2024 12:01:01/01/20 24 01/01/2024 URINA LYSIS pH 7.0 5-8 normal Not Available [facility] barak[facility] [address], [address] 01/01/2024 12:01:17 01/01/20 24 01/01/2024 URINA LYSIS leukocyte esterase Small negati ve abnormal Not Available [address] [place], [address] 01/01/2024 12:01:17 01/01/20 24 01/01/2024 URINA LYSIS nitrite Negati ve negati ve Not Available [address] [place], [address] 01/01/2024 12:01:17 01/01/20 24 01/01/2024 URINA LYSIS protein Negati ve mg/dL neg-tr noa Not Available [address] [place], [address] 01/01/2024 12:01:17 01/01/20 24 01/01/2024 URINA LYSIS glucose Negati ve mg/dL negati ve Not Available [address] [place], [address] 01/01/2024 12:01:01/01/20 24 01/01/2024 URINA LYSIS ketones Negati ve mg/dL negati ve Not Available [address] [place], [address] 01/01/2024 12:01:17 01/01/20 24 01/01/2024 URINA LYSIS urobilinogen 0.2 mg/dL up to 0.2 Not Available [address] [place], [address] 01/01/2024 12:01:17 01/01/20 24 01/01/2024 URINA LYSIS bilirubin Negati ve negati ve Not Available [address] [place] [place], [address] 01/01/2024 12:01:17 01/01/20 24 01/01/2024 URINA LYSIS blood Negati ve negati ve Not Available [address] [place], [address] 01/01/2024 12:01:17 01/01/20 24 01/01/2024 MICRO SCOPI C FINDI NGS WBC 10-20 hpf 0-5 abnormal Not Available [address] [place], [address] 01/01/2024 12:01:19 01/01/20 24 01/01/2024 MICRO SCOPI C FINDI NGS RBC Negati ve hpf 0-2 Not Available [address], [address] 01/01/2024 12:01:19 01/01/20 24 01/01/2024 MICRO SCOPI C FINDI NGS epithelial cells Few hpf negati ve Not Available [address] [place], [address] 01/01/2024 12:01:19 01/01/20 24 01/01/2024 MICRO SCOPI C FINDI NGS bacteria Rare hpf negati ve Not Available [address] [place], [address] 01/01/2024 12:01:19 01/01/20 24 01/01/2024 MICRO SCOPI C FINDI NGS crystals Negati ve hpf negati ve Not Available [address] [place] [place], [address] 01/01/2024 12:01:19 01/01/20 24 01/01/2024 MICRO SCOPI C FINDI NGS mucus Negati ve negati ve Not Available [address] [place], [address] 01/01/2024 12:01:19 01/01/20 24 01/01/2024 MICRO SCOPI C FINDI NGS casts Negati ve lpf negati ve Not Available [address] [place], [address] 01/01/2024 12:01:19 01/01/20 24 01/01/2024 MICRO SCOPI C FINDI NGS C S indicated? Yes Not Available [address] [place], [address] 01/01/2024 12:01:19 01/01/20 24 01/01/2024 MICRO ALBUM IN microalbumin 8.6 mg/L 1.30-2 0.0 normal Not Available [address] [place], [address] 01/01/2024 13:04:19 01/01/20 24 01/01/2024 MICRO ALBUM IN creatinine urine 103.44 mg/dL Not Available [facility] [address], [address] 01/01/2024 13:04:19 01/01/20 24 01/01/2024 MICRO ALBUM IN microalb ug/mg crea 8.3 ug/mg _cr Carolyn l: <30 ug/mg Crea Micro album inuri a: 30-30 0 ug/mg Crea Clini tarik album inuri a: >300 ug/mg Crea Not Available [address] [place], [address] 01/01/2024 13:04:19 01/01/20 24 01/02/2024 URINE CULTU RE urine culture Urine Cultu re APPEA RAH Mixed Gram Posit darius Boris APPEA RAH Gram Negat darius Richar COLON Y COUNT Not Available [address] [place], [address] 01/02/2024 07:50:07 01/01/20 24 01/02/2024 URINE CULTU [...] ID: 1.2) - <10,0 00 Not Available [address] [place], [address] 01/02/2024 07:50:07 01/01/20 24 01/03/2024 URINE CULTU RE urine culture Urine Cultu re APPEA RAH Mixed Gram Posit darius Boris APPEA RAH Gram Negat darius Richar APPEA RAH Mixed Gram Posit darius Boris APPEA RAH Gram Negat darius Richar COLON Y COUNT Not Available [address] [place], [address] 01/03/2024 08:13:04 01/01/20 24 01/03/2024 URINE CULTU [...] ID: 1.2) - <10,0 00 Not Available [address] [place], [address] 01/03/2024 08:13:04 08/01/19 25 08/01/2024 COMPL ETE BLOOD COUNT W/DIF F WBC 8.73 10_3/ uL 4.4-10 .8 normal Not Available [address] [place], [address] 08/01/2024 17:00:41 08/01/19 25 08/01/2024 COMPL ETE BLOOD COUNT W/DIF F RBC 3.96 10_6/ uL 3.93-5 .22 normal Not Available [address] [place], [address] 08/01/2024 17:00:41 08/01/19 25 08/01/2024 COMPL ETE BLOOD COUNT W/DIF F HGB 13.2 g/dL 11.2-1 5.7 normal Not Available [address] [place], [address] 08/01/2024 17:00:41 08/01/19 25 08/01/2024 COMPL ETE BLOOD COUNT W/DIF F HCT 40.5 % 36.0-4 6.0 normal Not Available [address] [place], [address] 08/01/2024 17:00:41 08/01/19 25 08/01/2024 COMPL ETE BLOOD COUNT W/DIF F MCV 102 fL 80-95 high Not Available [address] [place], [address] 08/01/2024 17:00:41 08/01/19 25 08/01/2024 COMPL ETE BLOOD COUNT W/DIF F MCH 33.3 pg 27.0-3 3.0 high Not Available [address] [place], [address] 08/01/2024 17:00:41 08/01/19 25 08/01/2024 COMPL ETE BLOOD COUNT W/DIF F MCHC 32.6 % 32.0-3 6.0 normal Not Available [address] [place], [address] 08/01/2024 17:00:41 08/01/19 25 08/01/2024 COMPL ETE BLOOD COUNT W/DIF F RDW 13.5 % 11.7-1 4.6 normal Not Available [address] [place], [address] 08/01/2024 17:00:41 08/01/19 25 08/01/2024 COMPL ETE BLOOD COUNT W/DIF F platelet count 239 10_3/ uL 130-40 0 normal Not Available [address] [place], [address] 08/01/2024 17:00:41 08/01/19 25 08/01/2024 COMPL ETE BLOOD COUNT W/DIF F MPV 10.0 fL 8.0-11 .0 normal Not Available [address] [place], [address] 08/01/2024 17:00:41 08/01/19 25 08/01/2024 COMPL ETE BLOOD COUNT W/DIF F neutrophils % 65.3 % Not Available [address] [place], [address] 08/01/2024 17:00:41 08/01/19 25 08/01/2024 COMPL ETE BLOOD COUNT W/DIF F lymphocytes % 24.5 % Not Available [address] [place], [address] 08/01/2024 17:00:41 08/01/19 25 08/01/2024 COMPL ETE BLOOD COUNT W/DIF F monocytes % 8.5 % Not Available [address] [place], [address] 08/01/2024 17:00:41 08/01/19 25 08/01/2024 COMPL ETE BLOOD COUNT W/DIF F eosinophils % 0.5 % Not Available [address] [place], [address] 08/01/2024 17:00:41 08/01/19 25 08/01/2024 COMPL ETE BLOOD COUNT W/DIF F basophils % 0.7 % Not Available [address] [place], [address] 08/01/2024 17:00:41 08/01/19 25 08/01/2024 COMPL ETE BLOOD COUNT W/DIF F immature grans % 0.5 % Not Available [address] [place], [address] 08/01/2024 17:00:41 08/01/19 25 08/01/2024 COMPL ETE BLOOD COUNT W/DIF F nucleated RBC 0.0 % 0.0-0. 3 normal Not Available [address] [place], [address] 08/01/2024 17:00:41 08/01/19 25 08/01/2024 COMPL ETE BLOOD COUNT W/DIF F absolute neutrophil count 5.71 10_3/ uL 1.2-6. 7 normal Not Available [address] [place], [address] 08/01/2024 17:00:41 08/01/19 25 08/01/2024 COMPL ETE BLOOD COUNT W/DIF F absolute lymphocyte count 2.14 10_3/ uL 1.2-3. 4 normal Not Available [address] [place], [address] 08/01/2024 17:00:41 08/01/19 25 08/01/2024 COMPL ETE BLOOD COUNT W/DIF F absolute monocyte count 0.74 10_3/ uL 0.1-0. 8 normal Not Available [address] [place], [address] 08/01/2024 17:00:41 08/01/19 25 08/01/2024 COMPL ETE BLOOD COUNT W/DIF F absolute eosinophil count 0.04 10_3/ uL 0.0-0. 7 normal Not Available [address] [place], [address] 08/01/2024 17:00:41 08/01/19 25 08/01/2024 COMPL ETE BLOOD COUNT W/DIF F absolute basophil count 0.06 10_3/ uL 0.0-0. 2 normal Not Available [address] [place], [address] 08/01/2024 17:00:41 08/01/19 25 08/01/2024 HEMOG LOBIN A1C hemoglobin A1C 5.4 % <5.7 Refer ence Range s <5.7 Carolyn l 5.7-6 .4% Predi abete s 6.5% or great er Diagn ostic for diabe mariaelena (if confi rmed) Refer ences : 1. Ameri can Diabe mariaelena Assoc iatio n. Clas sific ation and Diagn osis of Diabe mariaelena. [facility] mariaelena [facility] 2018; 2(Sup pleme nt 1):S1 3-s28 . Not Available [address] [place], [address] 08/01/2024 17:30:47 08/01/19 25 08/01/2024 IRON AND IBCT iron 76 ug/dL 50-170 normal Not Available Brock barakat [address] [place], [address] 08/01/2024 17:57:49 08/01/19 25 08/01/2024 IRON AND IBCT total iron binding capacity 268 ug/dL 250-45 0 normal Not Available [address] [place], [address] 08/01/2024 17:57:49 08/01/19 25 08/01/2024 IRON AND IBCT transferrin sat 28 % 15-50 normal Not Available Chris mendenhall [address] [place], [address] 08/01/2024 17:57:49 08/01/19 25 08/01/2024 COMPR EHENS DARIUS METAB OLIC PANEL calcium 9.6 mg/dL 8.5-10 .1 normal Not Available [address] [place], [address] 08/01/2024 17:57:50 08/01/19 25 08/01/2024 COMPR EHENS DARIUS METAB OLIC PANEL glucose 76 mg/dL 74-106 normal Not Available Brock barakat [address] [place], [address] 08/01/2024 17:57:50 08/01/19 25 08/01/2024 COMPR EHENS DARIUS METAB OLIC PANEL BUN 24 mg/dL 7-18 high Not Available Brock barakat [address] [place], [address] 08/01/2024 17:57:50 08/01/19 25 08/01/2024 COMPR EHENS DARIUS METAB OLIC PANEL creatinine 0.7 mg/dL 0.55-1 .02 normal Not Available [address] [place], [address] 08/01/2024 17:57:50 08/01/19 25 08/01/2024 COMPR EHENS DARIUS METAB OLIC PANEL estimated GFR 96.52 mL/min /1.73M 2 The eGFR is calcu lated from a serum creat inine using the CKD-E PI 2020 equat ion. Other varia bles requi red for the equat ion are gende r and age; this equat ion does not inclu de a race coeff icien t. This equat ion has simil ar overa ll perfo rmanc e to previ ous equat ions excep t value s may diffe r, in parti cular , in patie nts with highe r value s of eGFR and young er-ag ed adult s. Not Available [address] [place], [address] 08/01/2024 17:57:50 08/01/19 25 08/01/2024 COMPR EHENS DARIUS METAB OLIC PANEL total protein 6.4 g/dL 6.4-8. 2 normal Not Available [address] [place], [address] 08/01/2024 17:57:50 08/01/19 25 08/01/2024 COMPR EHENS DARIUS METAB OLIC PANEL albumin 3.7 g/dL 3.4-5. 0 normal Not Available [address] [place], [address] 08/01/2024 17:57:50 08/01/19 25 08/01/2024 COMPR EHENS DARIUS METAB OLIC PANEL bilirubin, total 0.25 mg/dL 0.2-1. 0 normal Not Available [address] [place], [address] 08/01/2024 17:57:50 08/01/19 25 08/01/2024 COMPR EHENS DARIUS METAB OLIC PANEL alk phos 83 U/L 46-116 normal Not Available [address] [place], [address] 08/01/2024 17:57:50 08/01/19 25 08/01/2024 COMPR EHENS DARIUS METAB OLIC PANEL sodium 143 mmol/ L 136-14 5 normal Not Available [address] [place], [address] 08/01/2024 17:57:50 08/01/19 25 08/01/2024 COMPR EHENS DARIUS METAB OLIC PANEL potassium 5.6 mmol/ L 3.5-5. 1 high Not Available [address] [place], [address] 08/01/2024 17:57:50 08/01/19 25 08/01/2024 COMPR EHENS DARIUS METAB OLIC PANEL chloride 104 mmol/ L 98-107 normal Not Available [address] [place], [address] 08/01/2024 17:57:50 08/01/19 25 08/01/2024 COMPR EHENS DARIUS METAB OLIC PANEL CO2 32.7 mmol/ L 21.0-3 2.0 high Not Available [address] [place], [address] 08/01/2024 17:57:50 08/01/19 25 08/01/2024 COMPR EHENS DARIUS METAB OLIC PANEL anion gap 6.3 mmol/ L 3-11 normal Not Available [address] [place], [address] 08/01/2024 17:57:50 08/01/19 25 08/01/2024 COMPR EHENS DARIUS METAB OLIC PANEL AST 17 U/L 15-37 normal Not Available Brock barakat [address], [address] 08/01/2024 17:57:50 08/01/19 25 08/01/2024 COMPR EHENS DARIUS METAB OLIC PANEL ALT 26 U/L 14-59 normal Not Available Brock barakat [address] [place], [address] 08/01/2024 17:57:50 08/01/19 25 08/01/2024 LIPID 2 cholesterol 103 mg/dL <200 Not Available Chris mendenhall [address] [place], [address] 08/01/2024 17:57:51 08/01/19 25 08/01/2024 LIPID 2 triglyceride 43 mg/dL <150 Not Available [address] [place], [address] 08/01/2024 17:57:51 08/01/19 25 08/01/2024 LIPID 2 HDL cholesterol 67 mg/dL 40-60 Not Available Sony wilfridoza [address] [place], [address] 08/01/2024 17:57:51 08/01/19 25 08/01/2024 LIPID 2 calculated LDL 28 mg/dL <100 Natio nal Tiffanie stero l Educa tion Progr am (NCEP -ATPI II) class ifica tions : Tiffanie stero l <200 mg/dL Tatyana able Tiffanie stero l 200-2 39 mg/dL Borde rline High Tiffanie stero l >or=2 40 mg/dL High HDL <40 mg/dL Low HDL >or=6 0 mg/dL High LDL <100 mg/dL Optim al LDL 100-1 29 mg/dL Near Optim al/Ab ove Optim al LDL 130-1 59 mg/dL Borde rline High LDL 160-1 89 mg/dL High LDL >or=1 90 mg/dL Very High *The above refer ence range is for adult s 18 years or older . Not Available [address] [place], [address] 08/01/2024 17:57:51 08/01/19 25 08/01/2024 ELSY TIN ferritin 193 NG/mL 8-252 normal Not Available [address] [place], [address] 08/01/2024 17:57:52 08/01/19 25 08/01/2024 VITAM IN B12 vitamin B12 > 2000 pg/mL 193-98 6 high Not Available [address] [place], [address] 08/01/2024 17:57:53 08/01/19 25 08/01/2024 VITAM IN D 25 TOTAL vitamin D 25 total 65.7 NG/mL 30-100 normal Refer ence Guide lines : Defic ient: <10 ng/ml Insuf ficie nt: 10-30 ng/ml Suffi cient : 30-10 0 ng/ml Toxic : >100 ng/ml Not Available [address] [place], [address] 08/01/2024 18:36:56 08/01/19 25 08/03/2024 TRANS ELSY N transferrin 216 mg/dL 201-35 2 Test perfo rmed or refer red by [facility] [address], [place] [address] Not Available [address] [place], [address] 08/03/2024 11:29:37 08/07/19 25 08/07/2024 BASIC METAB OLIC PANEL calcium 9.6 mg/dL 8.5-10 .1 normal Not Available [address] [place], [address] 08/07/2024 16:41:37 08/07/19 25 08/07/2024 BASIC METAB OLIC PANEL glucose 155 mg/dL 74-106 high Not Available Brock barakat [address] [facility] [place], [address] 08/07/2024 16:41:37 08/07/19 25 08/07/2024 BASIC METAB OLIC PANEL BUN 21 mg/dL 7-18 high Not Available Brock [address] [place], [address] 08/07/2024 16:41:37 08/07/19 25 08/07/2024 BASIC METAB OLIC PANEL creatinine 1.0 mg/dL 0.55-1 .02 normal Not Available [address] [facility] [place], [address] 08/07/2024 16:41:37 08/07/19 25 08/07/2024 BASIC METAB OLIC PANEL estimated GFR 62.91 mL/min /1.73M 2 The eGFR is calcu lated from a serum creat inine using the CKD-E PI 2020 equat ion. Other varia bles requi red for the equat ion are gende r and age; this equat ion does not inclu de a race coeff icien t. This equat ion has simil ar overa ll perfo rmanc e to previ ous equat ions excep t value s may diffe r, in parti cular , in patie nts with highe r value s of eGFR and young er-ag ed adult s. Not Available [address] [place], [address] 08/07/2024 16:41:37 08/07/19 25 08/07/2024 BASIC METAB OLIC PANEL sodium 141 mmol/ L 136-14 5 normal Not Available [address] [place], [address] 08/07/2024 16:41:37 08/07/19 25 08/07/2024 BASIC METAB OLIC PANEL potassium 4.8 mmol/ L 3.5-5. 1 normal Not Available [address] [place], [address] 08/07/2024 16:41:37 08/07/19 25 08/07/2024 BASIC METAB OLIC PANEL chloride 103 mmol/ L 98-107 normal Not Available [address] [place], [address] 08/07/2024 16:41:37 08/07/19 25 08/07/2024 BASIC METAB OLIC PANEL CO2 30.2 mmol/ L 21.0-3 2.0 normal Not Available [address] [place], [address] 08/07/2024 16:41:37 08/07/19 25 08/07/2024 BASIC METAB OLIC PANEL anion gap 7.8 mmol/ L 3-11 normal Not Available [address] [place], [address] 08/07/2024 16:41:37 12/30/19 24 12/30/2023 XR, knee, 3 view No observ ation record ed. [email or web address] Not Available 2023 11:33:25 12/30/19 24 12/30/2023 XR, tibia + fibul a, 2 view Patien t Name: Silvia De La Cruz Unit #: [id number] Loc: DI Orderi ng Provid er: Delfina Mojica Accoun t #: [id number] 7 Status : REG CLI Primar y Care Provid er: Trudykenya illliamDelfina Date of Exam: 02/14 Sex: F Admiss [...] at the addres s above. Thank- you. [facility] (Radiology) [facility] [place], [address], 01/13/2024 11:19:10 12/30/19 24 12/30/2023 XR, knee Patien t Name: Silvia De La Cruz Unit #: [id number] Loc: DI Orderi ng Provid er: Delfina Mojica Accoun t #: [id number] 7 Status : REG CLI Primar [...] error, please notify us immedi ately at [phone] and return the origin al report to us at the addres s above. Thank- you. [email or web address] [facility] (Radiology) [address] [place] [address] [place], [address], 01/13/2024 11:19:43 12/30/1912/30/2023 XR, knee, 3 view No observ ation record ed. [email or web address] [facility] (Radiology) [address] [place] [address] [place], [address], 01/02/2024 11:33:10 12/30/19 24 12/30/2023 XR, knee Patien t Name: Mauropaty guySilvia felicita Lawson Unit #: [id number] Loc: DI Orderi ng Provid er: Delfina Mojica Accoun t #: [id number] 7 Status : REG CLI Primar [...] at the addres s above. Thank- you. [facility] (Radiology) [address] [place] [address] , [place], [address], 01/13/2024 11:19:58 01/02/20 24 12/30/2023 x-ray imagi ng repor t Patien t Name: Silvia De La Cruz Unit #: [id number] Loc: DI Orderi ng Provid er: Delfina Mojica Accoun t #: [id number] 7 Status : REG CLI Primar [...] at the addres s above. Thank- you. [facility] [address] [place], [address] 01/02/2024 09:08:56 01/02/20 24 12/30/2023 x-ray imagi ng repor t Patien t Name: Silvia D eLa Cruz Unit #: [id number] Loc: DI Orderi ng Provid er: Delfina Mojica Accoun t #: [id number] 7 Status : REG CLI Primar [...] at the addres s above. Thank- you. [facility] [address], [place], [address] 01/02/2024 09:08:57 01/02/20 24 12/30/2023 x-ray imagi ng repor t Patiliz t Name: Silvia De La Cruz Unit #: [id number] Loc: DI Orderi ng Provid er: Delfina Mojica Accoun t #: [id number] 7 Status : REG CLI Primar [...] at the addres s above. Thank- you. [facility] [address], [place], [address] 01/02/2024 09:08:57 02/22/20 24 02/22/2024 LDCT, chest , for lung tiffaniece r lurdes dimas Name: Mauropaty Silvia tovar Unit #: [id number] Loc: DI Orderi ng Provid er: Delfina Mojica Accoun t #: [id number] Status : REG CLI Primar [...] of malign kacie. Modifi er S- Potent ially [facility] ally signif icant findin g. (Non lung cancer ) RADIAT ION DOSE DELIVE RED: Total DLP Total DLP DATA REPOSI TORY: All CT scans at this facili ty are submit leela to the Nation al Radiol ogy Data Regist ry (NRDR) Dose Index Regist ry (DIR) with the Americ cordell hogan of Radiol ogy (ACR). RADIAT ION OPTIMI ZATION : All CT scans at this facili ty use at least one of these [...] icant findin gs- non-agustin ng cancer [email or web address] [facility] [address], [place], [address] 05/01/2024 09:38:28 04/09/20 24 09/16/2022 imagi ng/di [...] ation record ed. Not Available 04/09 01:19:16 04/16/20 24 04/16/2024 MAMMO , scree margarita, bilat eral Patien t Name: Silvia De La Cruz Unit #: [id number] Loc: DI Orderi ng Provid er: Delfina Mojica Accoun t #: [id number] Status : REG CLI Primar [...] error, please notify us immedi ately at [phone] and return the origin al report to us at the addres s above. Thank- you. [email or web address] [facility] (Radiology) [facility] [facility] [place], [address], 04/17/2024 11:07:14 04/18/20 24 04/18/2024 MAMMO , scree margarita, bilat eral Patiliz t Name: Silvia De La Cruz Unit #: [id number] Loc: DI Orderi ng Provid er: Delfina Mojica Accoun t #: [id number] Status : REG CLI Primar [...] er Aided Diagno sis follow ed by Tomashia bhat s and right breast ultras ound. [...] Dictat ed By: Anthony Rosas M.D. 1546 1545 Transc ribed By: Anthony Rosas 154 This is privil eged, confid ential inform ation intend ed only for the provid er named. Any use or distri bution by any person other than this provid er is strict ly prohib ited. If you receiv e this report in error, please notify us immedi jeremíasly at [phone] and return the origin al report to us at the addres s above. Thank- you. [email or web address] [facility] (Radiology) [address], [place], [address], 04/24/2024 15:55:36 04/18/20 24 04/18/2024 US, courtney morris tercitlali , limit ed Ming dimas Name: Silvia De La Cruz Unit #: [id number] Loc: DI Orderi ng Provid er: Delfina Mojica Accoun t #: [id number] Status : REG CLI Primar [...] er Aided Diagno sis follow ed by Tomosy nthesi s and right breast ultras ound. COMPAR DAYAMI: Compar dayami is made with prior examin ations . FINDIN GS: Mammog cristin/ Tomosy nthesi s: Masses /Archi tectur al Distor tion: [...] Dictat ed By: Anthony Rosas M.D. 1546 1546 Transc ribed By: Anthony [...] the addres s above. Thank- you. [email or web address] [facility] [address] , [place], [address] 04/24/2024 15:55:02 Result Notes None recorded. Problems Name Problem SNOMED Code Status Onset Date Resolution Date Notes Provider Name and Address Organization Details Recorded Time Giovanna salmeron 22452986 Active 2024 DAMARI CHAPMAN, [employer] [address], [place], [address] , [facility] 5 05:32:25 Anxiety disorder 471100620 Active 2021 Problem Code: F41.9; Problem Code Type: ICD-10; [address], [place] [address] , [facility] 3 10:18:48 Arthrode sis Active 2021 Problem Code: Z98.1; Problem Code Type: ICD-10; [address], [address] 3 10:18:48 Asthma 167027504 Active 2021 Problem Code: J45.998; Problem Code Type: ICD-10; [address], [address] 3 10:18:48 Atherosc lerosis of coronary artery without angina pectoris 68991348938 4103 Active 2021 Problem Code: I25.10; Problem Code Type: ICD-10; [address], [address] 3 10:18:48 Essentia l hyperten jerson 86949881 Active 2021 Problem Code: I10; Problem Code Type: ICD-10; [address], [facility] [address] [place] [address] 3 10:18:48 Localize d edema 731235725 Active 2021 Problem Code: R60.0; Problem Code Type: ICD-10; [address], [facility] [address] [place] [address] 3 10:18:48 Bipolar disorder 81505452 Active 2021 Problem Code: F31.9; Problem Code Type: ICD-10; [address], [address] 3 10:18:48 Borderli ne personal ity disorder 48710646 Active 2021 Problem Code: F60.3; Problem Code Type: ICD-10; [address], [address] 3 10:18:48 Bulimia nervosa 70503838 Active 2021 Problem Code: F50.2; Problem Code Type: ICD-10; [address], [address] 3 10:18:49 Cataract 781554765 Active 2021 Problem Code: H26.9; Problem Code Type: ICD-10; [address], [address] 3 10:18:48 Spinal stenosis in cervical region 18328707 Active 2021 Problem Code: M48.02; Problem Code Type: ICD-10; [address], [facility] [address] [place] [address] 3 10:18:49 Neck pain 85575112 Active 2021 Problem Code: M54.2; Problem Code Type: ICD-10; [address], [facility] [address] [place] [address] 3 10:18:49 Chronic obstruct darius pulmonar y disease 81177759 Active 2021 Problem Code: J44.9; Problem Code Type: ICD-10; [address], [place], [place], [address] [place] [address] , [facility] 3 10:18:48 Chronic pain 44294755 Active 2021 Problem Code: G89.29; Problem Code Type: ICD-10; [address], [address] 3 10:18:49 Arthralg ia of the ankle and/or foot 684068603 Active 2021 Problem Code: M25.579; Problem Code Type: ICD-10; [address], [address] 3 10:18:48 Major depressi on, single episode 73185195 Active 2021 Problem Code: F32.9; Problem Code Type: ICD-10; [address], [address] 3 10:18:48 Dizzines s and giddines s 312356856 Active 2021 Problem Code: R42; Problem Code Type: ICD-10; [address], [address] 3 10:18:48 Asthenia 94899460 Active 2021 Problem Code: R53.1; Problem Code Type: ICD-10; [address], [address] 3 10:18:48 Gastroes ophageal reflux disease without esophagi tis 634616318 Active 2021 Problem Code: K21.9; Problem Code Type: ICD-10; [address], [place], [address] , [facility] 3 10:18:48 Headache 00475068 Active 2021 Problem Code: R51.9; Problem Code Type: ICD-10; [address], [facility] [address] [place] [address] 3 10:18:48 Hyperlip idemia 39297236 Active 2021 Problem Code: E78.5; Problem Code Type: ICD-10; [address], [address] 3 10:18:48 Hypothyr oidism 94878881 Active 2021 Problem Code: E03.9; Problem Code Type: ICD-10; [address], [address] 3 10:18:48 Low back pain 371485375 Active 2021 Problem Code: M54.50; Problem Code Type: ICD-10; [address], [facility] [address] [place] [address] 3 10:18:48 Obesity 318096027 Active 2021 Problem Code: E66.9; Problem Code Type: ICD-10; [address], [facility] [address] [place] [address] 3 10:18:48 Obstruct darius sleep apnea syndrome 13508598 Active 2021 Problem Code: G47.33; Problem Code Type: ICD-10; [address], [facility] [address] [place] [address] 3 10:18:49 Osteoart hritis of multiple joints 096630544 Active 2021 Problem Code: M15.9; Problem Code Type: ICD-10; [address], [address] 3 10:18:48 Senile osteopor osis 91084447 Active 2021 Problem Code: M81.0; Problem Code Type: ICD-10; [address], [address] 3 10:18:48 Posttrau matic stress disorder 88425726 Active 2021 Problem Code: F43.10; Problem Code Type: ICD-10; [address], [address] 3 10:18:48 Seizure 02934854 Active 2021 Problem Code: R56.9; Problem Code Type: ICD-10; [address], [address] 3 10:18:49 Nicotine dependen ce 40521999 Active 2021 Problem Code: Z87.891; Problem Code Type: ICD-10; [address], [address] 3 10:18:48 History of risk factor for suicide 07764045183 4103 Active 2021 Problem Code: Z91.51; Problem Code Type: ICD-Nany; [address], [address] 3 10:18:48 Vitamin D deficien 29882630 Active 2021 Problem Code: E55.9; Problem Code Type: ICD-10; [address], [place], [address] , [facility] 3 10:18:48 Vitamin B deficien cy 30937474 Active 2021 Problem Code: E53.8; Problem Code Type: ICD-10; [address], [place] [address] , [facility] 3 10:18:48 History of bariatri c surgical procedur e 889686725 Active 2021 Problem Code: Z98.84; Problem Code Type: ICD-10; [address], [place] [address] , [facility] 3 10:18:48 Prediabe mariaelena 731001509 Active 2021 Problem Code: R73.03; Problem Code Type: ICD-10; [address], [place] [address] , [facility] 3 10:18:49 Hemorrho ids 16615622 Active 2021 Problem Code: K64.9; Problem Code Type: ICD-10; [address], [place] [address] , [facility] 3 10:18:49 Constipa tion 79500380 Active 2021 Problem Code: K59.00; Problem Code Type: ICD-10; [address], [place] [address] , [facility] 3 10:18:48 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 466965412 Active 2021 Problem Code: H54.3; Problem Code Type: ICD-10; [address], [place] [address] , [facility] 3 10:18:48 Urinary incontin ence 954412733 Active 2021 Problem Code: R32; Problem Code Type: ICD-10; [address], [address] 3 10:18:48 History of malignan t neoplasm of ovary 886295902 Active 2021 Problem Code: Z85.43; Problem Code Type: ICD-10; [address], [address] 3 10:18:48 Screenin g mammogra phy Active 2022 Problem Code: Z12.31; Problem Code Type: ICD-10; [address], [address] 3 10:18:48 Solitary nodule of lung 202631975 Active 2022 Problem Code: R91.1; Problem Code Type: ICD-10; [address], [address] 3 10:18:48 Anemia 282462149 Active 2022 Problem Code: D64.9; Problem Code Type: ICD-10; [address], [address] 3 10:18:48 Disorder of hematopo ietic structur e 055692997 Active 2022 Problem Code: D75.89; Problem Code Type: ICD-10; [address], [address] 3 10:18:48 Pain in lower limb 06106869 Completed 202202/03/2023 Problem Code: M79.606; Problem Code Type: ICD-10; Not Available [facility] 3 05:27:04 Urinary tract infectio us disease 91288933 Completed 202106/18/2022 Problem Code: N39.0; Problem Code Type: ICD-10; Not Available [facility] 3 05:27:05 Tobacco dependen ce caused by cigarett es 33932204657 085906 Completed 202104/20/2023 Problem Code: F17.210; Problem Code Type: ICD-10; [address], [facility] [address] [place] [address] 4 04:29:59 History of nutritio nal disorder 243779286 Completed 202109/09/2022 Not Available [facility] 3 05:27:05 Tobacco dependen ce caused by cigarett es 81454087790 679881 Completed 202208/23/2022 Problem Code: F17.210; Problem Code Type: ICD-10; [address], [facility] [address] , [facility] 4 04:29:59 Nicotine dependen ce 60804021 Completed 202208/23/2022 Problem Code: F17.200; Problem Code Type: ICD-10; [address], [facility] [address] , [facility] 3 10:18:48 Edema of lower leg 203217654 Active [address], [facility] [address] [place] [address] 3 14:13:38 Restless legs 23995645 Active [address], [facility] [address] , [facility] 3 11:31:07 Active immuniza tion Active 2022 Problem Code: Z23; Problem Code Type: ICD-10; Not Available [facility] 4 05:37:46 Supinati on deformit y of foot 485890973 Active 2023 R BELIA STANLEY MD [address], [place], [address] , [facility] 4 08:41:10 Tobacco dependen ce caused by cigarett es 43950306379 390473 Active 2023 Problem Code: F17.210; Problem Code Type: ICD-10; DAMARI CHAPMAN APRN [address], [place], [address] , [facility] 4 04:29:59 Problem Notes None recorded. Procedures Surgical History None recorded. Imaging Results Imaging Date Name Status LastModified by [facility]iz [facility] Details LastModified Time 12/30/2023 XR, knee, 3 view completed [email or web address] Information not available 01/02/2024 11:33:25 12/30/2023 XR, tibia + fibula, 2 view completed [email or web address] [facility] (Radiology) [address] [place] [address] [place], [address], 01/13/2024 11:19:10 12/30/2023 XR, knee completed [email or web address] [facility] (Radiology) [address] [place] [address] [place], [address], 01/13/2024 11:19:43 12/30/2023 XR, knee, 3 view completed [email or web address] [facility] (Radiology) [address] [place] [address] [place], [address], 01/02/2024 11:33:10 12/30/2023 XR, knee completed [email or web address] [facility] (Radiology) [address] [place] [address] [place], [address], 01/13/2024 11:19:58 12/30/2023 x-ray imaging report completed [address] [place], [address] 01/02/2024 09:08:56 12/30/2023 x-ray imaging report completed [address] [place], [address] 01/02/2024 09:08:57 12/30/2023 x-ray imaging report completed [address] [place], [address] 01/02/2024 09:08:57 02/22/2024 LDCT, chest, for lung cancer screening completed [address] [place], [address] 05/01/2024 09:38:28 09/16/2022 imaging/diagno stic result completed [...] 04/09/2024 01:19:16 04/16/2024 MAMMO, screening, bilateral completed [email or web address] [facility] (Radiology) [address] [facility] [place], [address], 04/17/2024 11:07:14 04/18/2024 MAMMO, screening, bilateral completed [email or web address] [facility] (Radiology) [address] [facility] [place], [address], 04/24/2024 15:55:36 04/18/2024 US, breast, unilateral, limited completed [email or web address] [facility] [address] [facility] [place], [address] 04/24/2024 15:55:02 Procedure Notes None recorded. Medical Equipment None Reported. Allergies Allergen ID Allergen Name Allergen Category Reaction Reaction Severity Criticality Documentation Date Start Date Code Code System Note Provider Name and Address Organization Details Recorded Time 48729 prednison e medicatio n other moderate Not available 06/03/20232010 8640 RxNorm Aggit ation Aller gyRea ction : 'Aggi tatio n'; Not Available [facility] 3 16:21:47 85046 morphine sulfate medicatio n dyspnea Not available Not available 06/03/20232015 65255 RxNorm SOB Aller gyRea ction : 'SOB' ; Not Available [facility] 3 16:21:47 21117 Imitrex medicatio n hives Not available Not available 05/21/2024 66120 3 RxNorm Moira Morris MA [facility] [place] [place] - [facility] 4 12:19:32 Medications Name Sig Start [...] iferol (vitamin D3) 50 mcg (2,000 unit) capsule take 1 tablet by mouth at noon 2024 active Not Available Not Available Not Avai lable cholecalc iferol (vitamin D3) 50 mcg (2,000 [...] Updated DateTime 4 157.48 cm 34.5 kg/m2 83716.4 7 g 97 [degF] 96 % 96 % 67 /min 15 /min 130 mm[Hg] 67 mm[Hg] DAMARI CHAPMAN APRN [address], [place], [address] [place] [address] 4 08:44:52 Date Recorded Body height Body mass index (BMI) Body weight Body temperature Oxygen saturation Oxygen saturation in Arterial blood by Pulse oximetry Heart rate Systolic blood pressure Diastolic blood pressure Provider Name and Address Organization Details Last Updated DateTime 4 157.48 cm 31.5 kg/m2 48581.8 9 g 97 [degF] 98 % 98 % 74 /min 124 mm[Hg] 76 mm[Hg] JABIER VILLASEÑOR MA [facility] 4 08:25:41 Date Recorded Body height Body mass index (BMI) Body weight Oxygen saturation Oxygen saturation in Arterial blood by Pulse oximetry Heart rate Respiratory rate Body temperature Systolic blood pressure Diastolic blood pressure Provider Name and Address Organization Details Last Updated DateTime 4 157.48 cm 31.1 kg/m2 20320.7 g 96 % 96 % 46 /min 14 /min 97.3 [degF] 120 mm[Hg] 62 mm[Hg] DAMARI CHAPMAN APRN [address], [place], [address] [place] [address] 4 07:58:53 Date Recorded Body height Body mass index (BMI) Body weight Body temperature Oxygen saturation Oxygen saturation in Arterial blood by Pulse oximetry Heart rate Respiratory rate Systolic blood pressure Diastolic blood pressure Provider Name and Address Organization Details Last Updated DateTime 4 157.48 cm 29.9 kg/m2 56446.9 6 g 98.3 [degF] 96 % 96 % 61 /min 16 /min 106 mm[Hg] 65 mm[Hg] Moira Morris MA [facility] 12:18:34 Date Recorded Body height Heart rate Respiratory rate Body temperature Oxygen saturation Oxygen saturation in Arterial blood by Pulse oximetry Body mass index (BMI) Body weight Systolic blood pressure Diastolic blood pressure Provider Name and Address Organization Details Last Updated DateTime 4 157.48 cm 60 /min 17 /min 98.2 [degF] 96 % 96 % 28.9 kg/m2 60222.5 9 g 118 mm[Hg] 60 mm[Hg] DAMARI CHAPMAN APRN [address] [address], [place], [address] [place] [address] 15:24:43 Social History Question Answer Notes LastModified by Organizat ion Details LastModified Time Tobacco Smoking Status Former Smoker Moira Morris MA [facility], [facility] 05/21/2024 12:20:36 When Did You Quit Smoking? 1-5yearssin celastcigar ette Quit April 26, 2024 [email or web address] Information not available 05/21/2024 What Was The Date Of Your Most Recent Tobacco Screening? 05/21/2024 [email or web address] Information not available 05/21/2024 What Is Your Current Pack Years? 30ormorepac kyears Information not available 10/20/2023 At What Age Did You Start Smoking Tobacco? 11 Information not available 10/20/2023 How Much Tobacco Do You Smoke? 2 PPW Information not available 10/20/2023 Has Tobacco Cessation Counseling Been Provided? Yes Information not available 10/20/2023 On What Date Was Tobacco Cessation Counseling Provided? 05/21/2024 [email or web address] Information not available 05/21/2024 How Many Years [...] Recorded Time Tdap 8 completed Not Available [facility] 06/03/2023 04:40:27 zoster live 0 completed Not Available [facility] 06/03/2023 04:40:27 zoster live 2 completed Not Available [facility] 06/03/2023 04:40:27 Td(adult) unspecified formulation 7 completed Not Available [facility] 06/03/2023 04:40:27 SARS-COV-2 (COVID-19) vaccine, UNSPECIFIED 1 completed Not Available [facility] 06/03/2023 04:40:27 SARS-COV-2 (COVID-19) vaccine, UNSPECIFIED 1 completed Not Available [facility] 06/03/2023 04:40:27 SARS-COV-2 (COVID-19) vaccine, UNSPECIFIED 2 completed Not Available [facility] 06/03/2023 04:40:28 SARS-COV-2 (COVID-19) vaccine, UNSPECIFIED 1 completed Not Available [facility] 06/03/2023 04:40:28 Pneumococcal conjugate PCV20, polysaccharide [id number] conjugate, adjuvant, PF 2 completed Not Available [facility] 06/03/2023 04:40:28 pneumococcal polysaccharide PPV23 8 completed Not Available [facility] 06/03/2023 04:40:29 pneumococcal polysaccharide PPV23 7 completed Not Available [facility] 06/03/2023 04:40:29 influenza, unspecified formulation 0 completed Not Available [facility] 06/03/2023 04:40:29 influenza, unspecified formulation 2 completed Not Available [facility] 06/03/2023 04:40:30 influenza, unspecified formulation 7 completed Not Available [facility] 06/03/2023 04:40:30 influenza, unspecified formulation 6 completed Not Available [facility] 06/03/2023 04:40:30 influenza, unspecified formulation 1 completed Not Available [facility] 06/03/2023 04:40:30 influenza, unspecified formulation 5 completed Not Available [facility] 06/03/2023 04:40:30 influenza, unspecified formulation 8 completed Not Available [facility] 06/03/2023 04:40:31 COVID-19, mRNA, LNP-S, PF, mike-sucrose, 30 mcg/0.3 mL [address], [facility] [address], [facility] 04/12/2024 15:44:26 Influenza, split virus, trivalent, PF [address], [facility] [address], [facility] 04/12/2024 15:44:26 COVID-19, mRNA, LNP-S, PF, mike-sucrose, 30 mcg/0.3 mL [address], [facility] [address], [facility] 06/30/2023 13:41:28 Influenza, split virus, quadrivalent, PF 3 completed Not Available [facility] 08/05/2023 05:33:03 Past Encounters Encounter ID Performer Location Encounter Start Date Encounter Closed Date Diagnosis/Indication Diagnosis SNOMED-CT Code Diagnosis ICD10 Code Diagnosis Note [id number] DAMARI CHAPMAN APRN [address] [address] 06/30/2023 09:47:30 06/30/2023 15:17:56 Active or passive immunization [id number] Z23 [id number] DAMARI CHAPMAN APRN [facility] [address] [place] [address] 07/14/2023 06:52:54 09/08/2023 05:37:42 Urinary incontinence 533835044 R32 Urinary incontinen ce. Encouraged good perianal hygiene. Depends PRN. Constipation 33179750 K5 9.00 K64.9 Constipati on. Hemorrhoid s. Bowel movements about once per week.- Continue colace, senna- Increase miralax to BID Seizure 21859388 R56.9 Seizures. Stable. Continue meds; check level with next routine blood draw; briefly discussed seeing neurology. Obstructiv e sleep apnea syndrome 69987795 G47.33 Obstructiv e sleep apnea, adult. Asymptomat ic. Managed with side sleeping Obesity 023160093 E66.9 Obesity.hx of gastric bypass.Hx of DM, prediabete s.Vitamin B12 deficiency .Vitamin D deficiency .Osteoporo sis. Last DEXA was 2022, declines med mgmt, although meets requiremen ts.Bariatr ic labs every Jul- CBCD, iron, ferritin, TIBC, calcium, PTH, CMP, vitamin B12, vitamin D, thiamine, A1C.Encour aged to FU with bariatric clinic, recommend the MVI they prescribe. Request notes Hypothyroidism 06942602 E03.9 Hypothyroi dism. Stable, continue med. Check TSH next 08/17. Headache 56972985 R51.9 Headache, unspecifie d.Migraine s.- Declines PT- Declines additional medication s- She will continue to see neurology at [facility]; declines referral to neurology for headaches specific. Gastroesop hageal reflux disease without esophagitis 022366581 K21.9 GERD.Reflu x about once per week- continue med; declines dose increase in pepcid.- Known osteoporos is; discussed her prilosec and her bone health- her specialist at [facility] will write order to restart this medication on a daily basis- Encouraged diet mgmt. Chronic pain 15173660 G8 9.29 Chronic pain.Cervi calgia.Spi nal stenosis, cervical.A nkle pain,chron ic, lumbago.We akness.OA. Continue APAP. No IBU products. D/C diclofenac per her desires. Atheroscle rosis of coronary artery without angina pectoris [id number] 26705 I25.10 Benign essential hypertensi on.Atheros clerosis, coronary, [place] artery.HLD .- Stable, continue meds.- UA/ MA normal when checked 01/14, check yearly, no indication ACEI/ ARB. Dizziness and giddiness 371327339 R42 Dizziness. Rare, monitor for now. Asthma 877044839 J45.90 9 Asthma, chronic.CO PD.Current smoker.Pul monary nodule.- Stable, continue meds.- Low dose lung CT scan next February 14. Smoker for 50 years; 1ppd; 50 pack history.- Encouraged smoking cessation. Bipolar disorder 8817110 4 F31.9 Bipolar disorder.B ulimia.Bor derline personalit y disorder.A nxiety.Dep ression.PT SD.Hx of attempted suicide.- Stable, continue meds through her mental health provider and counseling . Meds psychiatry is prescribin g- vitamin D, B12, depakote, klonopin, lamictal, prazosin, probiotic, prozac, trazodone, vitamin C. To discuss the probiotic through them Edema of lower leg 38106 7004 R60.0 Leg edema, bilateral. Chronic. Trace. Monitor for now. 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 Per hematology in 2022, stable, no indication to evaluate further. Restless legs 70186416 G 25.81 Muscle spasms. Desires stopping magnesium. is aware her symptoms may worsen. Monitor for now. Discussed referral to neurosurge [facility]. [id number] DAMARI CHAPMAN APRN [address] [address] 10/20/2023 07:32:39 10/20/2023 13:47:57 Urinary incontinence 766387413 R32 Urinary incontinen ce. Encouraged good perianal hygiene. Depends PRN. Standing order for UA with reflex. Constipation 45334352 K5 9.00 K64.9 Constipati on.Hemorrh oids.- reduce miralax to 1/2 cap BID. Seizure 40143547 R56.9 Seizures.- Stable. Continue meds; check level with next routine blood draw.- Encouraged neurology eval , she declines Obstructiv e sleep apnea syndrome 22539095 G47.33 Obstructiv e sleep apnea, adult. Asymptomat ic. Managed with side sleeping Obesity 422234707 E66.9 Obesity.hx of gastric bypass.Hx of DM, prediabete s.Vitamin B12 deficiency .Vitamin D deficiency .Osteoporo sis.- Last DEXA was 2022, declines med mgmt, although meets requiremen ts.- Bariatric labs every Jul- CBCD, iron, ferritin, TIBC, calcium, PTH, CMP, vitamin B12, vitamin D, thiamine, A1C.- Encouraged to FU with bariatric clinic, recommend the MVI they prescribe. Hypothyroidism 91396230 E03.9 Hypothyroi dism.- Stable, continue med.- Check TSH next 08/18 Headache 63398696 R51.9 Headache, unspecifie d.Migraine s.- Feels tolerable, monitor for now. Gastroesop hageal reflux disease without esophagitis 700141943 K21.9 GERD.- Worsening. increase prilosec to 40mg daily.- Known osteoporos is; bariatric specialist recommends continuing this medication indefinite ly.- Encouraged diet mgmt. Edema of lower leg 15746 7004 R60.0 Leg edema, bilateral. Chronic. Trace. Monitor for now. Dizziness and giddiness 018323749 R42 Dizziness. Suspect drug to drug interactio ns, medication side effects. Right now not frequent. move slowly with position changes. Monitor for now. Atheroscle rosis of coronary artery without angina pectoris 0453560931 01134 I25.10 Benign essential hypertensi on.Atheros clerosis, coronary, [place] artery.HLD .- Stable, continue meds.- UA/ MA normal when checked 01/14, check yearly, no indication ACEI/ ARB. Asthma 842494089 J45.90 9 Asthma, chronic.CO PD.Current smoker.Pul monary nodule.- Stable, continue meds.- Low dose lung CT scan next February 14. Smoker for 50 years; 1ppd; 50 pack history- Encouraged smoking cessation. Bipolar disorder 3332962 4 F31.9 Bipolar disorder.B ulimia.Bor derline personalit y disorder.A nxiety.Dep ression.PT SD.Hx of attempted suicide.- Stable, continue meds through her mental health provider and counseling .- Meds psychiatry is prescribin g- vitamin D, B12, depakote, klonopin, lamictal, prazosin, probiotic, prozac, trazodone, vitamin C, boswellia, bone builders Chronic pain 69531080 G8 9.29 Chronic pain.Cervi calgia.Spi nal stenosis, cervical.A nkle pain,chron ic, lumbago.We akness.OA. - Well managed with APAP, supplement s. 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 Per hematology in 2022, stable, no indication to evaluate further. Restless legs 57984762 G 25.81 Muscle spasms.- No complaints . 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 Encouraged good perianal hygiene. Depends PRN. Standing order for UA with reflex done last September 2023. Constipation 85609851 K5 9.00 K64.9 Constipati on. Hemorrhoid s. Stable, continue medication regimen. Seizure 50883214 R56.9 Seizures. Without her lamictal, psychiatry stopped this medication . She is on depakote currently, managed through psychiatry . Did discuss with her briefly about seeing neurology, she declines. Monitor for seizures. If desires she would like to see neurology, to let nursing know. Obstructiv e sleep apnea syndrome 08685895 G47.33 Obstructiv e sleep apnea, adult. Asymptomat ic. Managed with side sleeping Obesity 725550387 E66.9 Obesity. hx of gastric bypass. Hx of DM, preDM. Vitamin B12 deficiency , D deficiency . Osteoporos is.- Last DEXA was 2022, declines med mgmt, although meets requiremen ts.- Bariatric labs every Jul- CBCD, iron, ferritin, TIBC, calcium, PTH, CMP, vitamin B12, vitamin D, thiamine, A1C.- Encouraged to FU with bariatric clinic, recommend the MVI they prescribe. Hypothyroidism 86649303 E03.9 Hypothyroi dism. - Stable, continue med. Check TSH next 08/18 Headache 39169229 R51.9 Headache, unspecifie d. Migraines. Slight increase in headaches, attributes to stress. Continue with coping skills of meditation . Gastroesop hageal reflux disease without esophagitis 139862412 K21.9 GERD. Stable, continue medication . Encouraged diet mgmt. Check mag, B12 in July. Edema of lower leg 98119 7004 R60.0 Leg edema, bilateral. Chronic. Trace. Monitor for now. Dizziness and giddiness 538148012 R42 Dizziness. Unchanged. Tolerable. Monitor for now. Atheroscle rosis of coronary artery without angina pectoris 5212134606 42852 I25.10 Benign essential hypertensi on. Atheroscle rosis, coronary, [place] artery. HLD. Bradycardi a.- Stable, continue meds.- UA/ MA normal when checked 01/15, check yearly, no indication ACEI/ ARB.- Check lipids next lab draw. Asthma 936926348 J45.90 9 Asthma, chronic. COPD. Current smoker. Pulmonary nodule.- Stable, continue meds.- Low dose lung CT scan next February 14. Smoker for 50 years; 1ppd; 50 pack history.- Encouraged smoking cessation. order nicotine patches 14mcg once a week for 6 weeks, then 7mcg once a week for 6 weeks, then stop. Bipolar disorder 5035507 4 F31.9 Bipolar. Bulimia. Borderline personalit y disorder. Anxiety. Depression . PTSD. Hx of attempted suicide.- Continue mgmt through psychiatry .- Meds psychiatry is prescribin g- vitamin D, B12, depakote, klonopin, lamictal, prazosin, probiotic, prozac, trazodone, vitamin C, boswellia, bone builders Chronic pain 46853153 G8 9.29 Chronic pain. Cervicalgi a. Spinal stenosis, cervical. Ankle pain, chronic. lumbago. Weakness. OA.- More discomfort to her neck. Will do salonpas on in AM and off at bedtime. Disorder o f hematopoietic structure 339529669 D75.89 Macrocytos is. Unclear etiology. Per hematology in 2022, stable, no indication to evaluate further. Restless legs 74541585 G 25.81 Muscle spasms. RLS. Worsening. Start mag oxide 400mg PO QHS and then re-evaluat e. Screening for malignant neoplasm of colon 874883190 Z12.11 Active or passive immunization 488208727 Z23 Flu: left armCOVID: Right arm [id number] MGAED COLLAZO, ALLI [address] [place] [address] 05/21/2024 11:51:17 05/21/2024 12:53:46 Cellulitis of perineum 88720759 L03.315 63 year old female with onset [...] subsequent surroundin g cellulitis /soft tissue infection. [id number] DAMARI CHAPMAN APRN [facility] [address] [place] [address] 07/23/2024 14:26:28 07/23/2024 16:06:52 Supination deformity of foot 701600756 M21.6X9 Struggling with ambulation with new AFO. is home bound, does not leave [facility] because of her medical conditions and [...] Guarantor Name 10/20/2023 1 [place] [employer] Jeannie Rico [id number] Jeannie Rico 10/20/2023 2 [facility] (MEDICAID) Jeannie Rico [id number] Jeannie Carbino 03/28/2024 1 [place]: [facility] Jeannie Carbino [id number] Jeannie Carbino 03/28/2024 2 [facility] (MEDICAID) Jeannie Carbino [id number] Jeannie Carbino 04/12/2024 1 [place] [facility] Jeannie Carbino [id number] Jeannie Carbino 04/12/2024 2 [facility] (MEDICAID) Jeannie Carbino [id number] Jeannie Carbino 05/21/2024 1 [place]: [facility] Jeannie Carbino [id number] Jeannie Carbino 05/21/2024 2 [facility] (MEDICAID) Jeannie Carbino [id number] Jeannie Carbino 07/23/2024 1 [place] [facility] Jeannie Carbino [id number] Jeannie Carbino 07/23/2024 2 [facility] (MEDICAID) Jeannie Carbino [id number] Jeannie Carbino Notes Date Note Type Note [...] and folate normal; haptoglobin normal. Saw hematology [facility], their note stated persistent macrocytosis since 1995, recommends no further work-up needed. DAMARI CHAPMAN, PRINTING FILM STRIPPER [address], [place], [address], [facility] 10/20/2023 11:06:26 03/28/2024 text/html Patient presents [...] supination issues. She mentions the use of [id number] shoes which have not alleviated her symptoms. He has not seen senior test analyst, orthopedics however is following her and [...] wear. BELIA STANLEY MD [address], [place], [address], [facility]. 03/28/2024 08:55:37 04/12/2024 text/html Home visit for [...] tarry stools.- Seizures. lamotrigine was stopped by psychologist chief, now on depakote. Does not see neurology.-- [...] and folate normal; haptoglobin normal. Saw hematology [facility], their note stated persistent macrocytosis since 1995, recommends no further work-up needed. - RLS. Leg cramps. Monitoring for now.-- update 04.12.24. leg cramps are pretty bad. The restless legs are ok. Feels tizanidine less effective. DAMARI CHAPMAN, PRINTING FILM STRIPPER [address], [place], [address], [facility]. [...] days due to local tenderness. MAGED COLLAZO, GLASSWARE MAKER [address], [place], [address], [facility]. 05/21/2024 12:58:27 07/23/2024 text/html Virtual visit fo r FU: deformity of the foot. She went to [id number]. She has new orthopedic shoes and a brace. The brace is to the right foot, it is an AFO. Has no breakdown around the foot. When she walks, her right foot is flopping, she is having a hard time trying to walk/ control her ankle/ foot movement. does use her walker for ambulation. no pain or discomfort. Feels tripping at times. DAMARI CHAPMAN, PRINTING FILM STRIPPER [address], [place], [address], [facility]. 07/23/2024 15:43:49 OBGyn Episode No OBEpisode recorded.
--- OUTSIDE RECORDS SUMMARY | 2024-08-15 13:26 | XMS_ITS | Encounter Summary ---
Author Organization [facility] Address [address] [place] [address] Care Team Providers Care Brush Clearing Laborer Name Role Phone Unavailable Primary Care Provider Unavailabl e Encounter Details Date Type Department Care Team (Late st Contact Info) Description 03/21/2023 Lab Requisition [facility] Pathology & Laboratory Medicine - [facility] [address] [place] [address] Outr Resulting Lab, Provider Social History Tobacco [...] 19 - 88 pg/mL 03/21/2023 22:22 EDT [facility] Blood VENOUS BLOOD / Unknown 03/21/2023 9:45 EDT 03/21/2023 21:17 EDT us Provider Outr Resulting Lab CHEMISTRY & BLOOD GA S ORDERABLES Final Result [facility] [address] [place] [address] documented in this encounter Visit Diagnoses Not on filedocumented in this encounter
--- OUTSIDE RECORDS SUMMARY | 2024-08-15 13:26 | XMS_ITS | Encounter Summary ---
Author Organization [facility] Address [address] [place] [address] Care Team Providers Care Material Coordinator Name Role Phone Unavailable Primary Care Provider Unavailabl e Encounter Details Date Type Department Care Team (Late st Contact Info) Description 09/09/[address] [facility] Pathology & Laboratory Medicine - [facility] [address] [place] [address] Outr Resulting Lab, Provider Social History Tobacco [...] Insulin 7.8 <29.0 uIU/mL 09/13/2022 9:38 EST [facility] Comment: Displayed Reference Range applies to fasting specimens only. Blood VENOUS BLOOD / Unknown 09/09/2022 7:35 EST 09/09/2022 16:51 EST us Provider Outr Resulting Lab CHEMISTRY & BLOOD GA S ORDERABLES Final Result [facility] [address] [place] [address] documented in this encounter Visit Diagnoses Not on filedocumented in this encounter
--- OUTSIDE RECORDS SUMMARY | 2024-08-15 13:26 | XMS_ITS | Clinical Summary ---
Author Organization [facility] Address [address] [place] [address] Care Team Providers Care Manifold Operator Name Role Phone Unavailable Primary Care Provider Unavailabl e Encounters Date Type Department Care Team Description 08/02/2024 Lab Requisition [facility] Pathology & Laboratory Medicine - [facility] [address] [place] [address] Outr Resulting Lab, Provider from Last 3 [...] 19.0 - 88.0 pg/mL 08/02/2024 20:22 EST [facility] Blood VENOUS BLOOD / Unknown 08/01/2024 14:00 EST 08/02/2024 19:27 EST us Provider Outr Resulting Lab CHEMISTRY & BLOOD GA S ORDERABLES Final Result [facility] [address] [place] [address] * TRANSFERRIN (08/01/2024 14:00 EST) Transferrin 216 201 - 352 mg/dL 08/03/2024 9:30 EST [facility] Blood VENOUS BLOOD / Unknown 08/01/2024 14:00 EST 08/02/2024 19:27 EST us Provider Outr Resulting Lab CHEMISTRY & BLOOD GA S ORDERABLES Final Result [facility] [address] [place], [place] [id number] from Last 3 Months
--- OUTSIDE RECORDS SUMMARY | 2024-08-15 13:26 | XMS_ITS | Encounter Summary ---
Author Organization [facility] Address [address] [place] [address] Care Team Providers Care Cleaner Touch Up Worker Name Role Phone Unavailable Primary Care Provider Unavailabl e Encounter Details Date Type Department Care Team (Late st Contact Info) Description 01/03/2023 Lab Requisition [facility] Pathology & Laboratory Medicine - [facility] [address] [place] [address] Outr Resulting Lab, Provider Social History Tobacco [...] 55.8 - 66.1 % 01/04/2023 14:[address] [facility] Albumin g/dL 3.8 3.6 - 5.2 g/dL 01/04/2023 14:[address] [facility] [place]-1 % 5.6(H) 2.9 - 4.9 % 01/04/2023 14:[address] [facility] [place]-1 g/dL 0.40 0.15 - 0.40 g/dL 01/04/2023 14:04 [facility] [place]-2 % 11.8 7.1 - 11.8 % 01/04/2023 14:04 [facility] Alpha-2 g/dL 0.80 0.50 - 1.00 g/dL 01/04/2023 14:04 [facility] Beta % 12.8 8.4 - 13.1 % 01/04/2023 14:04 [facility] Beta g/dL 0.80 0.60 - 1.20 g/dL 01/04/2023 14:04 [facility] Gamma % 11.0(L) 11.1 - 18.8 % 01/04/2023 14:04 [facility] Gamma g/dL 0.70 0.60 - 1.60 g/dL 01/04/2023 14:04 [facility] SPEP Comment No apparent monoclonal protein seen on serum electrophoresis 01/04/2023 14:04 [facility] Comment:See scanned/suppleme ntary report. Total Protein 6.4 6.3 - 8.2 g/dL 01/04/2023 14:04 [facility] Blood VENOUS BLOOD / Unknown 01/02/2023 11:00 EDT 01/03/2023 17:13 EDT us Provider Outr Resulting Lab CHEMISTRY & BLOOD GA S ORDERABLES Final Result [facility] [address] [place] [address] * PROTEIN, TOTAL (01/02/2023 11:00 EDT) Blood VENOUS BLOOD / Unknown 01/02/2023 11:00 EDT 01/03/2023 17:13 EDT us Provider Outr Resulting Lab CHEMISTRY & BLOOD GA S ORDERABLES Final Result [facility] [address] [place] [address] documented in this encounter Visit Diagnoses Not on filedocumented in this encounter
--- OUTSIDE RECORDS SUMMARY | 2024-08-15 13:26 | XMS_ITS | Encounter Summary ---
Author Organization [facility] Address [address] [place] [address] Care Team Providers Care Iron Worker Apprentice Name Role Phone Unavailable Primary Care Provider Unavailabl e Encounter Details Date Type Department Care Team (Late st Contact Info) Description 01/19/2023 Lab Requisition [facility] Pathology & Laboratory Medicine - [facility] [address] [place] [address] Outr Resulting Lab, Provider Social History Tobacco [...] 32 - 197 mg/dL 01/20/2023 11:04 EDT [facility] Blood VENOUS BLOOD / Unknown 01/19/2023 8:05 EDT 01/19/2023 17:07 EDT us Provider Outr Resulting Lab CHEMISTRY & BLOOD GA S ORDERABLES Final Result [facility] [address] [place] [address] documented in this encounter Visit Diagnoses Not on filedocumented in this encounter
--- OUTSIDE RECORDS SUMMARY | 2024-08-15 13:26 | XMS_ITS | Encounter Summary ---
Author Organization [facility] Address [address] [place] [address] Care Team Providers Care Box Toe Flanger Stitchdowns Name Role Phone Unavailable Primary Care Provider Unavailabl e Encounter Details Date Type Department Care Team (Late st Contact Info) Description 08/02/2022 Lab Requisition [facility] Pathology & Laboratory Medicine - [facility] [address] [place] [address] Outr Resulting Lab, Provider Social History Tobacco [...] 19 - 88 pg/mL 08/02/2022 23:[address] [facility] Blood VENOUS BLOOD / Unknown 08/02/2022 9:00 EST 08/02/2022 17:01 EST us Provider Outr Resulting Lab CHEMISTRY & BLOOD GA S ORDERABLES Final Result [facility] [address] [place] [address] documented in this encounter Visit Diagnoses Not on filedocumented in this encounter
--- OUTSIDE RECORDS SUMMARY | 2024-08-15 13:26 | XMS_ITS | Continuity of Care Document ---
Author Organization [facility] Address [address] [place] [address] Assessment No assessment recorded. Plan of Treatment [...] Name and Address Organization Details Recorded Time Hyperkal emia [id number] Active [address], [place], [address] , [facility] 5 05:32:25 Anxiety disorder 080106526 Active 2021 Problem Code: F41.9; Problem Code Type: ICD-10; [address], [place], [address] , [facility] 3 10:18:48 Arthrode sis Active 2021 Problem Code: Z98.1; Problem Code Type: ICD-Nany; [address], [place], [address] , [facility] 3 10:18:48 Asthma 340569132 Active 2021 Problem Code: J45.998; Problem Code Type: ICD-10; [address], [address] 3 10:18:48 Atherosc lerosis of coronary artery without angina pectoris 69932396745 4103 Active 2021 Problem Code: I25.10; Problem Code Type: ICD-10; [address], [place] [address] , [facility] 3 10:18:48 [facility]ia l hyperten jerson 43643520 Active 2021 Problem Code: I10; Problem Code Type: ICD-10; [address], [address] 3 10:18:48 Localize d edema 386562649 Active 2021 Problem Code: R60.0; Problem Code Type: ICD-10; [address], [address] 3 10:18:48 Bipolar disorder 06471780 Active 2021 Problem Code: F31.9; Problem Code Type: ICD-10; [address], [address] 3 10:18:48 Borderli ne personal ity disorder 25566709 Active 2021 Problem Code: F60.3; Problem Code Type: ICD-10; [address], [address] 3 10:18:48 Bulimia nervosa 00816970 Active 2021 Problem Code: F50.2; Problem Code Type: ICD-10; [address], [address] 3 10:18:49 Cataract 520196189 Active 2021 Problem Code: H26.9; Problem Code Type: ICD-10; [address], [facility] [address] [place] [address] 3 10:18:48 Spinal stenosis in cervical region 45587440 Active 2021 Problem Code: M48.02; Problem Code Type: ICD-10; [address], [address] 3 10:18:49 Neck pain 97176214 Active 2021 Problem Code: M54.2; Problem Code Type: ICD-10; [address], [address] 3 10:18:49 Chronic obstruct kayden pulmonar y disease 36790003 Active 2021 Problem Code: J44.9; Problem Code Type: ICD-10; [address], [facility] [address] [place] [address] 3 10:18:48 Chronic pain 85324003 Active 2021 Problem Code: G89.29; Problem Code Type: ICD-10; [address], [facility] [address] [place] [address] 3 10:18:49 Arthralg ia of the ankle and/or foot 612514841 Active 2021 Problem Code: M25.579; Problem Code Type: ICD-10; [address], [facility] [address] 3 10:18:48 Major depressi on, single episode 85085078 Active 2021 Problem Code: F32.9; Problem Code Type: ICD-10; [address], [address] 3 10:18:48 Dizzines s and giddines s 936615259 Active 2021 Problem Code: R42; Problem Code Type: ICD-10; [address], [address] 3 10:18:48 Asthenia 19845834 Active 2021 Problem Code: R53.1; Problem Code Type: ICD-10; SAM [address], [address] 3 10:18:48 Gastroes ophageal reflux disease without esophagi tis 489581900 Active 2021 Problem Code: K21.9; Problem Code Type: ICD-10; SAM [address], [address] 3 10:18:48 Headache 32369492 Active 2021 Problem Code: R51.9; Problem Code Type: ICD-Nany; SAM [address], [address] 3 10:18:48 Hyperlip idemia 19516289 Active 2021 Problem Code: E78.5; Problem Code Type: ICD-10; [address], [address] 3 10:18:48 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 2021 Problem Code: E03.9; Problem Code Type: ICD-10; [address], [address] 3 10:18:48 Low back pain 665958729 Active 2021 Problem Code: M54.50; Problem Code Type: ICD-10; SAM [address], [address] 3 10:18:48 Obesity 106384335 Active 2021 Problem Code: E66.9; Problem Code Type: ICD-10; [address], [address] 3 10:18:48 Obstruct kayden sleep apnea syndrome 57725610 Active 2021 Problem Code: G47.33; Problem Code Type: ICD-10; SAM [address], [address] 3 10:18:49 Osteoart hritis of multiple joints 145467494 Active 2021 Problem Code: M15.9; Problem Code Type: ICD-10; [address], [address] 3 10:18:48 Senile osteopor osis 74540099 Active 2021 Problem Code: M81.0; Problem Code Type: ICD-10; [address], [address] 3 10:18:48 Posttrau matic stress disorder 09068771 Active 2021 Problem Code: F43.10; Problem Code Type: ICD-10; [address], [address] 3 10:18:48 Seizure 14568815 Active 2021 Problem Code: R56.9; Problem Code Type: ICD-10; SAM [address], [address] 3 10:18:49 Nicotine dependen ce 81853613 Active 2021 Problem Code: Z87.891; Problem Code Type: ICD-10; SAM [address], [address] 3 10:18:48 History of risk factor for suicide 65293955859 4103 Active 2021 Problem Code: Z91.51; Problem Code Type: ICD-10; [address], [place] [address] , [facility] 3 10:18:48 Vitamin D deficien cy 24918597 Active 2021 Problem Code: E55.9; Problem Code Type: ICD-Nany; SAM [address], [place] [address] , [facility] 3 10:18:48 Vitamin B deficien cy 39599209 Active 2021 Problem Code: E53.8; Problem Code Type: ICD-10; SAM [address], [address] 3 10:18:48 History of bariatri c surgical procedur e 645499180 Active 2021 Problem Code: Z98.84; Problem Code Type: ICD-10; [address], [address] 3 10:18:48 Prediabe chasity 105709436 Active 2021 Problem Code: R73.03; Problem Code Type: ICD-10; [address], [place] [address] , [facility] 3 10:18:49 Hemorrho ids 27638790 Active 2021 Problem Code: K64.9; Problem Code Type: ICD-10; [address], [address] 3 10:18:49 Constipa tion 85298950 Active 2021 Problem Code: K59.00; Problem Code Type: ICD-10; [address], [address] 3 10:18:48 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 877829789 Active 2021 Problem Code: H54.3; Problem Code Type: ICD-10; [address], [address] 3 10:18:48 Urinary incontin ence 345719690 Active 2021 Problem Code: R32; Problem Code Type: ICD-Nany; SAM [address], [address] 3 10:18:48 History of malignan t neoplasm of ovary 080257421 Active 2021 Problem Code: Z85.43; Problem Code Type: ICD-10; [address], [address] 3 10:18:48 Screenin g mammogra phy Active 2022 Problem Code: Z12.31; Problem Code Type: ICD-10; [address], [facility] [address] , [facility] 3 10:18:48 Solitary nodule of lung 841230848 Active 2022 Problem Code: R91.1; Problem Code Type: ICD-10; [address], [facility] [address] , [facility] 3 10:18:48 Anemia 781699690 Active 2022 Problem Code: D64.9; Problem Code Type: ICD-10; [address], [facility] [address] [place] [address] 3 10:18:48 Disorder of hematopo ietic structur e 119927688 Active 2022 Problem Code: D75.89; Problem Code Type: ICD-10; [address], [facility] [address] [place] [address] 3 10:18:48 Pain in lower limb 38118319 Completed 202202/03/2023 Problem Code: M79.606; Problem Code Type: ICD-10; Not Available [facility] 3 05:27:04 Urinary tract infectio us disease 86144997 Completed 202106/18/2022 Problem Code: N39.0; Problem Code Type: ICD-10; Not Available [facility] 3 05:27:05 Tobacco dependen ce caused by cigarett es 89733217377 951584 Completed 202104/20/2023 Problem Code: F17.210; Problem Code Type: ICD-10; SAM [address], [facility] [address] [facility] 4 04:29:59 History of nutritio nal disorder 084671937 Completed 202109/09/2022 Not Available [facility] 3 05:27:05 Tobacco dependen ce caused by cigarett es 13328861361 031441 Completed 202208/23/2022 Problem Code: F17.210; Problem Code Type: ICD-10; DAMARI CHAPMAN APRN [address], [facility] [address] , [facility] 4 04:29:59 Nicotine dependen ce 21973403 Completed 202208/23/2022 Problem Code: F17.200; Problem Code Type: ICD-10; DAMARI CHAPMAN APRN [address], [address] 3 10:18:48 Edema of lower leg 730942626 Active 2022 DAMARI CHAPMAN APRN [address], [facility] [address] [place] [address] 3 14:13:38 Restless legs 80644419 Active 2022 DAMARI CHAPMAN APRN [address], [facility] [address] [place] [address] 3 11:31:07 Active immuniza tion Active 2022 Problem Code: Z23; Problem Code Type: ICD-10; Not Available [facility] 4 05:37:46 Supinati on deformit y of foot 608344170 Active [address], [facility] [address] , [facility] 4 08:41:10 Tobacco dependen ce caused by cigarett es 00874584876 746076 Active 2023 Problem Code: F17.210; Problem Code Type: ICD-10; DAMARI CHAPMAN APRN [address], [facility] [address] , [facility] 4 04:29:59 Problem Notes None recorded. Medical Equipment None Reported. Allergies Allergen ID Allergen Name Allergen Category Reaction Reaction Severity Criticality Documentation Date Start Date Code Code System Note Provider Name and Address Organization Details Recorded Time 94780 prednison e medicatio n other moderate Not available 06/03/20232010 8640 RxNorm Aggit ation Aller gyRea ction : 'Aggi tatio n'; Not Available [facility] 3 16:21:47 82646 morphine sulfate medicatio n dyspnea Not available Not available 06/03/20232015 67518 RxNorm SOB Aller gyRea ction : 'SOB' ; Not Available [facility] 3 16:21:47 34075 Imitrex medicatio n hives Not available Not available 05/21/2024 00156 3 RxNorm RICH Purvis, [place] - [facility]. 4 12:19:32 Medications Name Sig Start Date [...] [degF] 96 % 96 % 28.9 kg/m2 41313.5 9 g 118 mm[Hg] 60 mm[Hg] DAMARI CHAPMAN, STOCK PREPARATION OPERATOR [address], [place], [address] , [place] - [facility] 4 15:24:43 Social History Question Answer Notes LastModified by Organizat ion Details LastModified Time Tobacco Smoking Status Former Smoker Moira Morris MA [facility] [place] - [facility]. 05/21/2024 12:20:36 When Did You Quit Smoking? 1-5yearssin celastcigar ette Quit April 26, 2024 Information not available 05/21/2024 What Was The Date Of Your Most Recent Tobacco Screening? 05/21/2024 [email or web address] Information not available 05/21/2024 What Is Your Current Pack Years? [email or web address] Information not available 10/20/2023 At What Age Did You Start Smoking Tobacco? 11 Information not available 10/20/2023 How Much Tobacco Do You Smoke? 2 PPW Information not available 10/20/2023 Has Tobacco Cessation Counseling Been Provided? Yes Information not available 10/20/2023 On What Date Was Tobacco Cessation Counseling Provided? 05/21/2024 [email or web address] Information not available 05/21/2024 How Many Years [...] Recorded Time Tdap 8 completed Not Available [facility] 06/03/2023 04:40:27 zoster live 0 completed Not Available [facility] 06/03/2023 04:40:27 zoster live 2 completed Not Available [facility] 06/03/2023 04:40:27 Td(adult) unspecified formulation 7 completed Not Available [facility] 06/03/2023 04:40:27 SARS-COV-2 (COVID-19) vaccine, UNSPECIFIED 1 completed Not Available [facility] 06/03/2023 04:40:27 SARS-COV-2 (COVID-19) vaccine, UNSPECIFIED 1 completed Not Available [facility] 06/03/2023 04:40:27 SARS-COV-2 (COVID-19) vaccine, UNSPECIFIED 2 completed Not Available [facility] 06/03/2023 04:40:28 SARS-COV-2 (COVID-19) vaccine, UNSPECIFIED 1 completed Not Available [facility] 06/03/2023 04:40:28 Pneumococcal conjugate PCV20, polysaccharide [id number] conjugate, adjuvant, PF 2 completed Not Available [facility] 06/03/2023 04:40:28 pneumococcal polysaccharide PPV23 8 completed Not Available [facility] 06/03/2023 04:40:29 pneumococcal polysaccharide PPV23 7 completed Not Available [facility] 06/03/2023 04:40:29 influenza, unspecified formulation 0 completed Not Available [facility] 06/03/2023 04:40:29 influenza, unspecified formulation 2 completed Not Available [facility] 06/03/2023 04:40:30 influenza, unspecified formulation 7 completed Not Available [facility] 06/03/2023 04:40:30 influenza, unspecified formulation 6 completed Not Available [facility] 06/03/2023 04:40:30 influenza, unspecified formulation 1 completed Not Available [facility] 06/03/2023 04:40:30 influenza, unspecified formulation 5 completed Not Available [facility] 06/03/2023 04:40:30 influenza, unspecified formulation 8 completed Not Available [facility] 06/03/2023 04:40:31 COVID-19, mRNA, LNP-S, PF, mike-sucrose, 30 mcg/0.3 mL 4 completed DAMARI CHAPMAN APRN [address], [place], [address], [facility], [facility]. 04/12/2024 15:44:26 Influenza, split virus, trivalent, PF 4 completed DAMARI CHAPMAN APRN [address], [place], [address], [facility], [facility] 04/12/2024 15:44:26 COVID-19, mRNA, LNP-S, PF, mike-sucrose, 30 mcg/0.3 mL 3 completed DAMARI CHAPMAN APRN [address], [place], [address], [facility] 06/30/2023 13:41:28 Influenza, split virus, quadrivalent, PF 3 completed Not Available [facility] 08/05/2023 05:33:03 Past Encounters Encounter ID Performer Location Encounter Start Date Encounter Closed Date Diagnosis/Indication Diagnosis SNOMED-CT Code Diagnosis ICD10 Code Diagnosis Note [id number] DAMARI CHAPMAN APRN [address] [address] 07/23/2024 14:26:28 07/23/2024 16:06:52 Supination deformity of foot [id number] M21.6X9 Struggling with ambulation with new AFO. is home bound, does not leave [facility] because of her medical conditions and mobility. order PT for further evaluation and management . Health Concerns Section Related Observation LastModified by Organization Detai ls LastModified Time None Recorded Concern Status LastModified by Organization Details LastModified Time None Recorded Payers Encounter Date Sequence Insurance Name Policy Number Policy Brar Covered Member ID Brar Member ID Guarantor Name 07/23/2024 1 [place] [employer] Jeannie Rico [id number] Jeannie Rico 07/23/2024 2 [facility] (MEDICAID) Jeannie Rico [id number] Jeannie Rico Notes Date Note Type Note Provider Name and Address Organization Details Recorded Time 07/23/2024 text/html Virtual visit fo r FU: deformity of the foot. She went to [id number]. She has new orthopedic shoes and a brace. The brace is to the right foot, it is an AFO. Has no breakdown around the foot. When she walks, her right foot is flopping, she is having a hard time trying to walk/ control her ankle/ foot movement. does use her walker for ambulation. no pain or discomfort. Feels tripping at times. DAMARI CHAPMAN, STOCK PREPARATION OPERATOR [address], [place], [address], [facility]. 07/23/2024 15:43:49 OBGyn Episode No OBEpisode recorded.
--- OUTSIDE RECORDS SUMMARY | 2024-08-15 13:26 | XMS_ITS | Referral Summary ---
Author Organization [facility] Address [address] [place] [address] Care Team Providers Care Music Writer Name Role Phone Unavailable Primary Care Provider Unavailabl e Encounters Date Type Department Care Team Description 08/02/2024 Lab Requisition [facility] Pathology & Laboratory Medicine - [facility] [address] [place] [address] Outr Resulting Lab, Provider from Last 3 [...] 19.0 - 88.0 pg/mL 08/02/2024 20:22 EST [facility] Blood VENOUS BLOOD / Unknown 08/01/2024 14:00 EST 08/02/2024 19:27 EST us Provider Outr Resulting Lab CHEMISTRY & BLOOD GA S ORDERABLES Final Result [facility] [address] [place] [address] * TRANSFERRIN (08/01/2024 14:00 EST) Transferrin 216 201 - 352 mg/dL 08/03/2024 9:30 EST [facility] Blood VENOUS BLOOD / Unknown 08/01/2024 14:00 EST 08/02/2024 19:27 EST us Provider Outr Resulting Lab CHEMISTRY & BLOOD GA S ORDERABLES Final Result [facility] [address], [place] [id number] from Last 3 Months
--- OUTSIDE RECORDS SUMMARY | 2024-08-15 13:26 | XMS_ITS | Continuity of Care Document ---
Author Organization [facility], [facility] Address [address] [place] [address] Assessment No assessment recorded. Plan of Treatment [...] By Organization Details Last Modified Time 05/21/2024 [id number] Today, it does appear that there was an abscess/boil to the right labia, that has since opened and drained on it's own. It appears to be improving, but we will treat any surrounding soft tissue infection with an oral antibiotic (cephalexin) 4 times a day for 5 days. This was sent electronically to [facility], and I have also provided a paper prescription that can be faxed if necessary. Continue to use warm, moist compresses, keep the area clean and dry, and return for any fevers, worsening pain, redness, or drainage not responding to treatment discussed. [email or web address] Not available 05/21/2024 12:48:49 Reason for Referral None Reported. Problems Name Problem SNOMED Code Status Onset Date Resolution Date Notes Provider Name and Address Organization Details Recorded Time Hyperkal emia 02546318 Active 2024 DAMARI CHAPMAN, SAM [address], [place], [address] , [facility] 5 05:32:25 Anxiety disorder 040493370 Active 2021 Problem Code: F41.9; Problem Code Type: ICD-10; [address], [place], [place], [address] [place] [address] , [facility] 3 10:18:48 Arthrode sis Active 2021 Problem Code: Z98.1; Problem Code Type: ICD-10; SAM [address], [address] 3 10:18:48 Asthma 284175685 Active 2021 Problem Code: J45.998; Problem Code Type: ICD-10; SAM [address], [place], [place], [address] [place] [address] 3 10:18:48 Atherosc lerosis of coronary artery without angina pectoris 05853828619 4103 Active 2021 Problem Code: I25.10; Problem Code Type: ICD-10; SAM [address], [place] [address] , [facility] 3 10:18:48 [facility]entia l hyperten jerson 51053147 Active 2021 Problem Code: I10; Problem Code Type: ICD-10; SAM [address], [place] [address] , [facility] 3 10:18:48 Localize d edema 521919890 Active 2021 Problem Code: R60.0; Problem Code Type: ICD-10; SAM E[address], [facility] [address] [place] [address] 3 10:18:48 Bipolar disorder 36319229 Active 2021 Problem Code: F31.9; Problem Code Type: ICD-10; SAM [address], [place], [address] , [facility] 3 10:18:48 Borderli ne personal ity disorder 61523513 Active 2021 Problem Code: F60.3; Problem Code Type: ICD-10; SAM [address], [place] [address] , [facility] 3 10:18:48 Bulimia nervosa 65061484 Active 2021 Problem Code: F50.2; Problem Code Type: ICD-10; SAM E[address] Dr, [address] 3 10:18:49 Cataract 681449442 Active 2021 Problem Code: H26.9; Problem Code Type: ICD-10; SAM ENC[address] Dr, [address] 3 10:18:48 Spinal stenosis in cervical region 01380641 Active 2021 Problem Code: M48.02; Problem Code Type: ICD-10; SAM [address] Dr, [facility] [address] , [facility] 3 10:18:49 Neck pain 47746667 Active 2021 Problem Code: M54.2; Problem Code Type: ICD-10; SAM E[address] Dr, [facility] [address] [place] [address] 3 10:18:49 Chronic obstruct kayden pulmonar y disease 54723608 Active 2021 Problem Code: J44.9; Problem Code Type: ICD-10; SAM [address] Dr, [facility] [address] , [facility] 3 10:18:48 Chronic pain 38522620 Active 2021 Problem Code: G89.29; Problem Code Type: ICD-10; SMA [address], [place], [place], [address] [place] [address] 3 10:18:49 Arthralg ia of the ankle and/or foot 552238827 Active 2021 Problem Code: M25.579; Problem Code Type: ICD-10; SAM E[address] Dr, [address] 3 10:18:48 Major depressi on, single episode 00523108 Active 2021 Problem Code: F32.9; Problem Code Type: ICD-10; SAM [address] Dr, [address] 3 10:18:48 Dizzines s and giddines s 432113493 Active 2021 Problem Code: R42; Problem Code Type: ICD-10; SAM [address], [place], [place], [address] [place] [address] 3 10:18:48 Asthenia 72684119 Active 2021 Problem Code: R53.1; Problem Code Type: ICD-10; SAM ENC[address] Dr, [address] 3 10:18:48 Gastroes ophageal reflux disease without esophagi tis 943062066 Active 2021 Problem Code: K21.9; Problem Code Type: ICD-10; SAM ENC[address] Dr, [address] 3 10:18:48 Headache 25294990 Active 2021 Problem Code: R51.9; Problem Code Type: ICD-10; SAM E[address] Dr, [address] 3 10:18:48 Hyperlip idemia 51329208 Active 2021 Problem Code: E78.5; Problem Code Type: ICD-10; SAM [address] Dr, [address] 3 10:18:48 Hypothyr oidism 65709838 Active 2021 Problem Code: E03.9; Problem Code Type: ICD-10; SAM E[address] Dr, [address] 3 10:18:48 Low back pain 424908292 Active 2021 Problem Code: M54.50; Problem Code Type: ICD-10; SAM E[address] Dr, [address] 3 10:18:48 Obesity 747468133 Active 2021 Problem Code: E66.9; Problem Code Type: ICD-10; SAM E[address] Dr, [address] 3 10:18:48 Obstruct kayden sleep apnea syndrome 17377023 Active 2021 Problem Code: G47.33; Problem Code Type: ICD-10; SAM ENC[address] Dr, [address] 3 10:18:49 Osteoart hritis of multiple joints 200990849 Active 2021 Problem Code: M15.9; Problem Code Type: ICD-10; SAM [address] Dr, [place], [place], [address] [place] [address] , [facility] 3 10:18:48 Senile osteopor osis 63311652 Active 2021 Problem Code: M81.0; Problem Code Type: ICD-10; SAM E[address] Dr, [place] [address] , [facility] 3 10:18:48 Posttrau matic stress disorder 73901031 Active 2021 Problem Code: F43.10; Problem Code Type: ICD-10; SAM ENC[address] Dr, [address] 3 10:18:48 Seizure 29612583 Active 2021 Problem Code: R56.9; Problem Code Type: ICD-10; SAM ENC[address] Dr, [address] 3 10:18:49 Nicotine dependen ce 88041690 Active 2021 Problem Code: Z87.891; Problem Code Type: ICD-10; SAM ENC[address] Dr, [address] 3 10:18:48 History of risk factor for suicide 05890593676 4103 Active 2021 Problem Code: Z91.51; Problem Code Type: ICD-10; SAM ENC[address] Dr, [address] 3 10:18:48 Vitamin D deficien 32073190 Active 2021 Problem Code: E55.9; Problem Code Type: ICD-10; SAM ENCISO Dr, [address] [facility] 3 10:18:48 Vitamin B deficien cy 73153318 Active 2021 Problem Code: E53.8; Problem Code Type: ICD-10; SAM ENCISO Dr, [address] 3 10:18:48 History of bariatri c surgical procedur e 656405268 Active 2021 Problem Code: Z98.84; Problem Code Type: ICD-10; SAM E[address] Dr, [address] 3 10:18:48 Prediabe chasity 469975945 Active 2021 Problem Code: R73.03; Problem Code Type: ICD-10; SAM E[address] Dr, [place] [address] , [facility] 3 10:18:49 Hemorrho ids 14989483 Active 2021 Problem Code: K64.9; Problem Code Type: ICD-10; SAM ENC[address] Dr, [address] 3 10:18:49 Constipa tion 47278989 Active 2021 Problem Code: K59.00; Problem Code Type: ICD-10; SAM ENC[address] Dr, [address] 3 10:18:48 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 018817773 Active 2021 Problem Code: H54.3; Problem Code Type: ICD-10; SAM ENC[address] Dr, [address] 3 10:18:48 Urinary incontin ence 415643785 Active 2021 Problem Code: R32; Problem Code Type: ICD-10; SAM ENC[address] Dr, [address] 3 10:18:48 History of malignan t neoplasm of ovary 132435355 Active 2021 Problem Code: Z85.43; Problem Code Type: ICD-10; SAM ENC[address] Dr, [address] 3 10:18:48 Screenin g mammogra phy Active 2022 Problem Code: Z12.31; Problem Code Type: ICD-10; SAM ENC[address] Dr, [address] 3 10:18:48 Solitary nodule of lung 824032609 Active 2022 Problem Code: R91.1; Problem Code Type: ICD-10; SAM ENC[address] Dr, [address] 3 10:18:48 Anemia 945577962 Active 2022 Problem Code: D64.9; Problem Code Type: ICD-10; SAM ENC[address] Dr, [address] 3 10:18:48 Disorder of hematopo ietic structur e 925723826 Active 2022 Problem Code: D75.89; Problem Code Type: ICD-10; SAM ENC[address] Dr, [address] 3 10:18:48 Pain in lower limb 41450714 Completed 202202/03/2023 Problem Code: M79.606; Problem Code Type: ICD-10; Not Available [facility] 3 05:27:04 Urinary tract infectio us disease 29462690 Completed 202106/18/2022 Problem Code: N39.0; Problem Code Type: ICD-10; Not Available [facility] 3 05:27:05 Tobacco dependen ce caused by cigarett es 57340104702 254667 Completed 202104/20/2023 Problem Code: F17.210; Problem Code Type: ICD-10; SAM ENCISO Dr, [facility] [address] , [facility] 4 04:29:59 History of nutritio nal disorder 532281539 Completed 202109/09/2022 Not Available Critical access hospital 3 05:27:05 Tobacco dependen ce caused by cigarett es 83810616534 042235 Completed 202208/23/2022 Problem Code: F17.210; Problem Code Type: ICD-10; SAM ENCISO Dr, [facility] [address] , [facility] 4 04:29:59 Nicotine dependen ce 78275390 Completed 202208/23/2022 Problem Code: F17.200; Problem Code Type: ICD-10; SAM ENCISO Dr, [facility] [address] , [facility] 3 10:18:48 Edema of lower leg 039420252 Active [address], [facility] [address] , [facility] 3 14:13:38 Restless legs 43341239 Active [address], [facility] [address] , [facility] 3 11:31:07 Active immuniza tion Active 2022 Problem Code: Z23; Problem Code Type: ICD-10; Not Available Critical [facility] hospital 4 05:37:46 Supinati on deformit y of foot 919168864 Active 2023 Jing STANLEY MD [address], [place], [address] , [facility] 4 08:41:10 Tobacco dependen ce caused by cigarett es 77198710935 024532 Active 2023 Problem Code: F17.210; Problem Code Type: ICD-10; DAMARI CHAPMAN APRN [address], [facility] [address] , [facility] 4 04:29:59 Problem Notes None recorded. Medical Equipment None Reported. Allergies Allergen ID Allergen Name Allergen Category Reaction Reaction Severity Criticality Documentation Date Start Date Code Code System Note Provider Name and Address Organization Details Recorded Time 82891 prednison e medicatio n other moderate Not available 06/03/20232010 8640 RxNorm Aggit ation Aller gyRea ction : 'Aggi tatio n'; Not Available [facility] 3 16:21:47 10402 morphine sulfate medicatio n dyspnea Not available Not available 06/03/20232015 09884 RxNorm SOB Aller gyRea ction : 'SOB' ; Not Available [facility] hospital 3 16:21:47 39412 Imitrex medicatio n hives Not available Not available 05/21/2024 50193 3 RxNorm RICH Purvis, [facility] 4 12:19:32 Medications Name Sig Start Date [...] and Address Organization Details Last Updated DateTime 157.48 cm 29.9 kg/m2 17855.9 6 g 98.3 [degF] 96 % 96 % 61 /min 16 /min 106 mm[Hg] 65 mm[Hg] Moira Morris MA [facility] 12:18:34 Social History Question Answer Notes LastModified by Organizat ion Details LastModified Time Tobacco Smoking Status Former Smoker Moira Morris MA null, [facility] 05/21/2024 12:20:36 When Did You Quit Smoking? 1-5yearssin celasttriston ette Quit April 26, 2024 [email or web address] Information not available 05/21/2024 What Was The [...] Date Was Tobacco Cessation Counseling Provided? 05/21/2024 [email or web address] Information not available 05/21/2024 How Many Years [...] Recorded Time Tdap 8 completed Not Available Critical access hospital 06/03/2023 04:40:27 zoster live 0 completed Not Available Critical [facility] hospital 06/03/2023 04:40:27 zoster live 2 completed Not Available Critical access hospital 06/03/2023 04:40:27 Td(adult) unspecified formulation 7 completed Not Available Critical [facility] hospital 06/03/2023 04:40:27 SARS-COV-2 (COVID-19) vaccine, UNSPECIFIED 1 completed Not Available [facility] access hospital 06/03/2023 04:40:27 SARS-COV-2 (COVID-19) vaccine, UNSPECIFIED 1 completed Not Available Critical access hospital 06/03/2023 04:40:27 SARS-COV-2 (COVID-19) vaccine, UNSPECIFIED 2 completed Not Available Critical access hospital 06/03/2023 04:40:28 SARS-COV-2 (COVID-19) vaccine, UNSPECIFIED 1 completed Not Available [facility] access hospital 06/03/2023 04:40:28 Pneumococcal conjugate PCV20, polysaccharide QBL456 conjugate, adjuvant, PF 2 completed Not Available Critical access hospital 06/03/2023 04:40:28 pneumococcal polysaccharide PPV23 8 completed Not Available Critical access hospital 06/03/2023 04:40:29 pneumococcal polysaccharide PPV23 7 completed Not Available Critical access hospital 06/03/2023 04:40:29 influenza, unspecified formulation 0 completed Not Available [facility] hospital 06/03/2023 04:40:29 influenza, unspecified formulation 2 completed Not Available Critical [facility] hospital 06/03/2023 04:40:30 influenza, unspecified formulation 7 completed Not Available [facility] access hospital 06/03/2023 04:40:30 influenza, unspecified formulation 6 completed Not Available Critical access hospital 06/03/2023 04:40:30 influenza, unspecified formulation 1 completed Not Available [facility] access hospital 06/03/2023 04:40:30 influenza, unspecified formulation 5 completed Not Available Critical access hospital 06/03/2023 04:40:30 influenza, unspecified formulation 8 completed Not Available Critical access hospital 06/03/2023 04:40:31 COVID-19, mRNA, LNP-S, PF, mike-sucrose, 30 mcg/0.3 mL 4 completed DAMARI CHAPMAN APRN [address], [facility] [address], [facility] 04/12/2024 15:44:26 Influenza, split virus, trivalent, PF 4 completed DAMARI CHAPMAN APRN [address], [facility] [address] 04/12/2024 15:44:26 COVID-19, mRNA, LNP-S, PF, mike-sucrose, 30 mcg/0.3 mL 3 completed DAMARI CHAPMAN APRN [address], [facility] [address] 06/30/2023 13:41:28 Influenza, split virus, quadrivalent, PF 3 completed Not Available Critical access hospital 08/05/2023 05:33:03 Past Encounters Encounter ID Performer Location Encounter Start Date Encounter Closed Date Diagnosis/Indication Diagnosis SNOMED-CT Code Diagnosis ICD10 Code Diagnosis Note [id number] MAGED COLLAZO, [address] [place] [address] 05/21/2024 11:51:17 05/21/2024 12:53:46 Cellulitis of perineum [id number] L03.315 63 year old female with onset [...] ID Guarantor Name 05/21/2024 1 MEDICARE [place]: [employer] Jeannie Rico [id number] Jeannie Rico 05/21/2024 2 [facility] (MEDICAID) Jeannie Rico [id number] Jeannie Rico Notes Date Note Type Note [...] tenderness. MAGED COLLAZO, ALLI [address], [place], [address], [facility]. 05/21/2024 12:58:27 OBGyn Episode No OBEpisode recorded.
--- OUTSIDE RECORDS SUMMARY | 2024-08-15 13:26 | XMS_ITS | Encounter Summary ---
Author Organization [facility] Address [address] [place] [address] Care Team Providers Care Rubber Washer Name Role Phone Unavailable Primary Care Provider Unavailabl e Encounter Details Date Type Department Care Team (Late st Contact Info) Description 08/02/2024 Lab Requisition [facility] Pathology & Laboratory Medicine - [facility] [address] [place] [address] Outr Resulting Lab, Provider Social History Tobacco [...] 19.0 - 88.0 pg/mL 08/02/2024 20:22 EST [facility] Blood VENOUS BLOOD / Unknown 08/01/2024 14:00 EST 08/02/2024 19:27 EST us Provider Outr Resulting Lab CHEMISTRY & BLOOD GA S ORDERABLES Final Result [facility] [address] [place] [address] * TRANSFERRIN (08/01/2024 14:00 EST) Transferrin 216 201 - 352 mg/dL 08/03/2024 9:30 EST [facility] Blood VENOUS BLOOD / Unknown 08/01/2024 14:00 EST 08/02/2024 19:27 EST us Provider Outr Resulting Lab CHEMISTRY & BLOOD GA S ORDERABLES Final Result [facility] [address] [place] [address] [phone] documented in this encounter Visit Diagnoses Not on filedocumented in this encounter
--- OUTSIDE RECORDS SUMMARY | 2024-08-15 13:27 | XMS_ITS | Encounter Summary ---
Author Organization [facility] Address [facility] [place] [address] Care Team Providers Care Marble Supervisor Name Role Phone Hoang Castellanos APRN Primary Care Provider Encounter Details Date Type Department Care Team (Late st Contact Info) Description 04/29/2022 12:00 PM EDT Home Care Visit [facility] for Care [address] [place] [address] Kimberly Austin, ORNAMENTAL RAIL INSTALLER LT LABELLING MACHINE OPERATOR HOME VISIT Social History Tobacco Use [...] Care Plan Visit Details Visit Type -LTC LABELLING MACHINE OPERATOR Home Vis it Discipline -Home Health [...] N/A documented in this encounter Care Teams Marble Supervisor Relationship Specialty Start Date End Date Hoang Castlelanos, TEST CASE DEVELOPER [address] [place] [place] [address] PCP - General Family Medicine 03/12/20 documented as of this encounter
--- OUTSIDE RECORDS SUMMARY | 2024-08-15 13:27 | XMS_ITS | Encounter Summary ---
Author Organization [facility] [place] [address] Care Team Providers Care Neon Light Installer Name Role Phone Hoang Castellanos APRN Primary Care Provider Encounter Details Date Type Department Care Team (Late st Contact Info) Description 05/20/2022 Telephone Primary Care at [facility] [place] [id number] Jeannie Luciano, RN Social History Tobacco Use [...] patient anyways- assuming it could be over [facility]? * Telephone Encounter - Jeannie Luciano RN - 05/20/2022 4:01 PM EDT Message received from Kimberly with [employer] asking if Hoang Castellanos APRN would complete paperwork for her to continue in the LTC Choices for Care with the [facility]. Jeannie will be moving very soon to [...] on filedocumented in this encounter Care Teams Neon Light Installer Relationship Specialty Start Date End Date Hoang Castellanos APRN [address] [place] [address] PCP - General Family Medicine 03/12/20 documented as of this encounter
--- OUTSIDE RECORDS SUMMARY | 2024-08-15 13:27 | XMS_ITS | Encounter Summary ---
[place] [address] Care Team Providers Care Breaker Off Name Role Phone Hoang Castellanos APRN Primary Care Provider [phone] Reason for Referral * Consultation (Routine) - Closed Specialty Diagnoses / Procedures Referred By Vanita t Referred To Contact Hematology and Oncology Diagnoses Macrocytosis Anemia, unspecified type Jolly Davenport APRN [address] [place] [address] [facility] [address] [place] [address] Referral ID Status Reason Start Date Expiration Date V isits Requested Visits Authorized [id number] Closed Consult, Test & Treat PCP Updated and/or Approved 03/31/2023 03/30/2024 12 12 Encounter Details Date Type Department Care Team (Latest Contact Info) Description 03/31/2023 Transcribe Orders eDH Incoming Referrals [phone] Jolly Davenport APRN [address] [place], [place] [id number] Macrocytosis; Anemia, unspecified type Social History Tobacco [...] type documented in this encounter Care Teams Breaker Off Relationship Specialty Start Date End Date Hoang Castellanos, AIRLINE ATTENDANT [address] [place] [address] PCP - General Family Medicine 03/12/20 documented as of this encounter
--- OUTSIDE RECORDS SUMMARY | 2024-08-15 13:27 | XMS_ITS | Encounter Summary ---
Author Organization [facility] Address [facility] [place] [address] Care Team Providers Care Oncology Nurse Navigator Name Role Phone Hoang Castellanos APRN Primary [...] on filedocumented in this encounter Care Teams Oncology Nurse Navigator Relationship Specialty Start Date End Date Hoang Castellanos, RUG SIZER [address] [place] [address] PCP - General Family Medicine 03/12/20 documented as of this encounter
--- OUTSIDE RECORDS SUMMARY | 2024-08-15 13:27 | XMS_ITS | Encounter Summary ---
Author Organization [facility] Address [facility] [place] [address] Care Team Providers Care Side Trimmer Name Role Phone Hoang Castellanos APRN Primary Care Provider Encounter Details Date Type Department Care Team (Late st Contact Info) Description 05/04/2022 9:00 AM EDT Home Care Visit [facility] for Care [address] [place] [phone] Kimberly Austin, DIGITAL MARKETING STRATEGIST LT SHACKLER HOME VISIT Social History Tobacco Use Types [...] Care Plan Visit Details Visit Type -LTC SHACKLER Home Vis it Discipline -Home Health Aide Problems Problem Description Start Date Status Goals Interve ntions A Required Screenings Disciplines: [facility] 03/25/2022 Active 1 goal linked to scheduled/documente d intervention 1 goal intervention scheduled/documente d in this visit Other Disciplines: [facility] 03/25/2022 Active 1 goal linked to scheduled/documente d intervention 1 goal intervention scheduled/documente d in this visit House Keeping Disciplines: [facility] 03/25/2022 Active 1 goal linked to scheduled/documente d intervention 9 goal interventions scheduled/documente d in this visit Personal Care Disciplines: [facility] 03/25/2022 Active 1 goal linked [...] clean-up of patient's environment as directed Completed [facility] KITCHEN AREA Description: [facility] kitchen area Problem:House Keeping Goal:Aide to assist [...] refused documented in this encounter Care Teams Side Trimmer Relationship Specialty Start Date End Date Hoang Castellanos APRN [address] [place] [address] PCP - General Family Medicine 03/12/20 documented as of this encounter
--- OUTSIDE RECORDS SUMMARY | 2024-08-15 13:27 | XMS_ITS | Encounter Summary ---
Author Organization [facility] Address [facility] [place] [address] Care Team Providers Care Unit Secy Name Role Phone Hoang Castellanos APRN Primary Care Provider Encounter Details Date Type Department Care Team (Late st Contact Info) Description 05/21/2022 Home Care Visit [facility] Choices for Care [address] [place] [phone] Farrah Jama [facility] [place] DISCHARGE Social History Tobacco Use [...] on filedocumented in this encounter Care Teams Unit Secy Relationship Specialty Start Date End Date Hoang Castellanos, SAM [address] [place] [address] PCP - General Family Medicine 03/12/20 documented as of this encounter
--- OUTSIDE RECORDS SUMMARY | 2024-08-15 13:27 | XMS_ITS | Encounter Summary ---
[place] [address] Care Team Providers Care Rn Wound Care Name Role Phone Hoang Castellanos APRN Primary Care Provider Encounter Details Date Type Department Care Team (Latest Contact Info) Description 07/13/2023 12:30 PM EST Laboratory Appointment Lab [address] [place] [phone] S/P gastric bypass; Disorder of iron metabolism; [...] EST) Glucose 131 65 - 199 mg/dL [facility] Comment:Diabetes: >=200 mg/d L plus symptoms Blood Urea Nitrogen 24(H) 8 - 18 mg/dL [facility] Creatinine 0.69(L) 0.70 - 1.20 mg/dL [facility] Sodium 139 135 - 145 mmol/L [facility] Potassium 4.5 3.5 - 5.0 mmol/L [facility] Comment: Please note: ??Patients with WBC >100,000 may have falsely elevated Potassium levels. ??For accurate Potassium quantification in these patients send serum separator tube (gold top) for subsequent determinations. ??Contact the Clinical Chemistry Laboratory if there are any questions. Chloride 100 98 - 107 mmol/L [facility] Carbon Dioxide 30 22 - 31 mmol/L [facility] Anion Gap 9 5 - 15 mmol/L [facility] Calcium 10.0 8.5 - 10.5 mg/dL [facility] Protein, Total 6.9 6.1 - 8.0 g/dL [facility] Albumin 4.4 3.2 - 5.2 g/dL [facility] Aspartate Aminotransferase 20 0 - 30 unit/L [facility] Alanine Aminotransferase 21 0 - 30 unit/L [facility] Alkaline Phosphatase 97 35 - 105 unit/L [facility] Bilirubin, Total <0.2(L) 0.2 - 1.3 mg/dL [facility] Est Glomerular Filtration Rate 97 >=60 mL/min/1. 73 m?? [facility] Comment: This patient's estimated [...] APRN CHEMISTRY ORDERA BLES Performing Organization Address [facility] Co de Phone Number [facility] [place] [address] * Ferritin (07/13/2023 12:38 PM EST) Ferritin 46 11 - 328 ng/mL [facility] Comment: Please note that as of 06/29/2023, the reference intervals for Ferritin have been updated. Blood 07/13/2023 12:3 8 PM EST 07/13/2023 12:43 PM EST Narrative Resulting Agency Comment Spec In Lab Priya Charles APRN CHEMISTRY ORDERA BLES Performing Organization Address City/[facility]/ZIP Co de Phone Number [facility] [place] [address] * Folate, serum (07/13/2023 12:38 PM EST) Folate 16.5 4.8 - 24.2 ng/mL [facility] Blood 07/13/2023 12:3 8 PM EST 07/13/2023 12:43 PM EST Narrative Resulting Agency Comment Spec In Lab Priya Charles HEALTH TYPE TECHNICIAN CHEMISTRY ORDERA BLES [facility] [place] [address] * (ABNORMAL) Hemogram (07/13/2023 12:38 PM EST) White Blood Cell 11.1(H) 4.0 - 9.5 x10(3)/mc L [facility] Red Blood Cell 4.53 4.00 - 5.21 x10(6)/mc L [facility] Hemoglobin 14.3 11.7 - 15.5 g/dL [facility] Hematocrit 44.5 35.7 - 45.8 % [facility] Mean Cell Volume 98.2(H) 82.6 - 94.4 fL [facility] Mean Cell Hemoglobin 31.6 27.1 - 32.0 pg [facility] Mean Cell Hemoglobin Concentration 32.1 31.7 - 35.0 g/dL [facility] Platelet 226 145 - 357 x10(3)/mc L [facility] RDW Standard Deviation 52.4(H) 37.0 - 46.0 fL [facility] RDW coefficient of variation 14.4(H) 11.5 - 14.1 % [facility] Mean Platelet Volume 9.4 7.6 - 12.9 fL [facility] NRBC% auto 0.0 % [facility] NRBC Absolute 0.000 0.000 - 0.000 x10(3)/mc L [facility] Blood 07/13/2023 12:3 8 PM EST 07/13/2023 12:43 PM EST Narrative Resulting Agency Comment Spec In Lab Priya Charles APRN HEMATOLOGY ORDER MORENO [facility] [place] [address] * Iron and TIBC (07/13/2023 12:38 PM EST) Iron 74 30 - 150 mcg/dL [facility] TIBC 344 250 - 450 mcg/dL [facility] Iron Saturation 22 20 - 50 % [facility] Blood 07/13/2023 12:3 8 PM EST 07/13/2023 12:43 PM EST Narrative Resulting Agency Comment Spec In Lab Priya Charles APRN CHEMISTRY ORDERA BLES Performing Organization Address [facility] de Phone Number [facility] [place] [address] * PTH (07/13/2023 12:38 PM EST) Parathyroid Hormone 46 15 - 65 pg/mL [facility] Blood 07/13/2023 12:3 8 PM EST 07/13/2023 12:43 PM EST Narrative Resulting Agency Comment Spec In Lab Priya Charles APRN CHEMISTRY ORDERA BLES Performing Organization Address [facility] de Phone Number [facility] [place] [address] * (ABNORMAL) Vitamin B1, whole blood (07/13/2023 12:38 PM EST) Vit B1 Lvl Wb (NOVEMBER) 189(H) 70 - 180 nmol/L [facility] Comment: ADDITIONAL INFORMATION This test was developed and its performance characteristics determined by [facility] in a manner consistent with CLIA requirements. This test has not been cleared or approved by the U.S. Food and Drug Administration. Test Performed by: [facility] - [address] [address] [employer]: Skinny Reyes M.D. Ph.D.; CLIA# [id number] Blood 07/13/2023 12:3 8 PM EST 07/14/2023 9:55 AM EST Narrative Resulting Agency Comment Spec In Lab Priya Charles APRN LAB SEND OUT ORD ERABLES Performing Organization Address [facility] Co de Phone Number [facility] [place] [address] * (ABNORMAL) Vitamin B12 (07/13/2023 12:38 PM EST) Vitamin B12 1,754(H) 232 - 1,245 pg/mL [facility] Blood 07/13/2023 12:3 8 PM EST 07/13/2023 12:43 PM EST Narrative Resulting Agency Comment Spec In Lab Priya Charles APRN CHEMISTRY ORDERA BLES [facility] [place] [address] * Vitamin D, 25-Hydroxy (07/13/2023 12:38 PM EST) Vitamin D Total 25 OH 56 21 - 100 ng/mL [facility] Vit D Interp Sufficient [facility] Blood 07/13/2023 12:3 8 PM EST 07/13/2023 12:43 PM EST Narrative Resulting Agency Comment Spec In Lab Priya Charles APRN CHEMISTRY ORDERA BLES Performing Organization Address City/[facility]/ZIP Co de Phone Number [facility] [place] [address] documented in this encounter Visit Diagnoses Diagnosis S/P gastric bypass Bariatric surgery status Disorder of iron metabolism Other disorders of iron metabolism Intestinal malabsorption, unspecified type documented in this encounter Care Teams Rn Wound Care Relationship Specialty Start Date End Date Hoang Castellanos APRN [address] [place] [address] PCP - General Family Medicine 03/12/20 documented as of this encounter
--- OUTSIDE RECORDS SUMMARY | 2024-08-15 13:27 | XMS_ITS | Encounter Summary ---
Author Organization [facility] Address [facility] [place] [address] Care Team Providers Care Bulb Grader Name Role Phone Hoang Castellanos APRN Primary Care Provider [phone] Encounter Details Date Type Department Care Team (Late st Contact Info) Description 05/07/2022 11:15 AM EDT Home Care Visit [facility] for Care [address] [place] [phone] Kimberly Austin, ENRICHMENT DIRECTOR LT SCIENCE WRITER HOME VISIT Social History Tobacco Use Types [...] Care Plan Visit Details Visit Type -LTC SCIENCE WRITER Home Vis it Discipline -Home Health Aide Problems Problem Description Start Date Status Goals Interve ntions A Required Screenings Disciplines: [facility] 03/25/2022 Active 1 goal linked to scheduled/documente d intervention 1 goal intervention scheduled/documente d in this visit Other Disciplines: [facility] 03/25/2022 Active 1 goal linked to scheduled/documente d intervention 1 goal intervention scheduled/documente d in this visit House Keeping Disciplines: [facility] 03/25/2022 Active 1 goal linked to scheduled/documente d intervention 9 goal interventions scheduled/documente d in this visit Personal Care Disciplines: [facility] 03/25/2022 Active 1 goal linked to scheduled/documente [...] refused documented in this encounter Care Teams Bulb Grader Relationship Specialty Start Date End Date Hoang Castellanos, LOAN PROCESSOR [address] [place] [address] PCP - General Family Medicine 03/12/20 documented as of this encounter
--- OUTSIDE RECORDS SUMMARY | 2024-08-15 13:27 | XMS_ITS | Encounter Summary ---
Author Organization [place] [address] Care Team Providers Care Washer Operator Name Role Phone Hoang Castellanos APRN Primary Care Provider [phone] Encounter Details Date Type Department Care Team (Late st Contact Info) Description 06/04/2022 Telephone Primary Care at [facility] [address] [facility] [place] [phone] Jeannie Luciano, RN Social History Tobacco Use [...] AM EST Message received from Kasia at [facility] where Jeannie has moved to. They received a sign medication list but Jeannie arrived with 2 medications not on our list. They are Depakote ER 250mg and Prozac 20mg. She asked if Jeannie is supposed to be on both Sertraline and Prozac. Returned call to [facility] and spoke with felicita Farr who [...] on filedocumented in this encounter Care Teams Washer Operator Relationship Specialty Start Date End Date Hoang Castellanos APRN [address] [place] [place] [address] PCP - General Family Medicine 03/12/20 documented as of this encounter
--- OUTSIDE RECORDS SUMMARY | 2024-08-15 13:27 | XMS_ITS | Encounter Summary ---
Author Organization [facility] Address [facility] [place] [address] Care Team Providers Care Boat Tester Name Role Phone Hoang Castellanos APRN Primary Care Provider [phone] Encounter Details Date Type Department Care Team (Late st Contact Info) Description 04/20/2022 Home Care Visit [facility] for Care [address] [place] [phone] Farrah Jama TELEPHONE ENCOUNTER Social History [...] SERVICES CLIENT IS RECEIVING THRU [facility]. 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 SHE DOES A WONDERFUL JOB, PER BRITTA NEED TO ADD COOKING TO THE CARE GLADYS THE MANUFACTURING LEADER ONCE IN AWHILE WILL MAKE MEALS FOR THE CLIENT. BRITTA ALSO INDICATED THAT CLIENT WOULD LIKE 3 HOURS EACH DAY IF POSSIBLE. I LET BRITTA KNOW THAT I WOULD LOOK AT THE MANUFACTURING LEADER'S SCHEDULE AND SEE WHAT WE COULD DO. OTHER THAN THAT, BRITTA INDICATED THE CLIENT HAS NO QUESTIONS OR CONCERNS AT THIS TIME. documented in this encounter Plan of Treatment Not on file documented as of this encounter Visit Diagnoses Not on filedocumented in this encounter Care Teams Boat Tester Relationship Specialty Start Date End Date Hoang Castellanos APRN [address] [place] [address] PCP - General Family Medicine 03/12/20 documented as of this encounter
--- OUTSIDE RECORDS SUMMARY | 2024-08-15 13:27 | XMS_ITS | Encounter Summary ---
Author Organization [facility] Address [place] [address] Care Team Providers Care Semiconductor Technician Name Role Phone Hoang Castellanos APRN Primary Care Provider [phone] Encounter Details Date Type Department Care Team (Late st Contact Info) Description 04/23/2022 11:00 AM EDT Home Care Visit [facility] for Care [address] [place] [phone] Kimberly Austin, LIGHT RAIL VEHICLE OPERATOR LT FILTRATION OPERATOR HOME VISIT Social History Tobacco Use [...] Care Plan Visit Details Visit Type -LTC FILTRATION OPERATOR Home Vis it Discipline -Home Health [...] refused documented in this encounter Care Teams Semiconductor Technician Relationship Specialty Start Date End Date Hoang Castellanos, TECHNICIAN TERMINAL AND REPEATER [address] [place] [address] PCP - General Family Medicine 03/12/20 documented as of this encounter
--- OUTSIDE RECORDS SUMMARY | 2024-08-15 13:27 | XMS_ITS | Encounter Summary ---
Author Organization [facility] [place] [address] Care Team Providers Care Retail Account Manager Name Role Phone Hoang Castellanos APRN Primary Care Provider [phone] Reason for Visit * Reason Comments Medication Refill Encounter Details Date Type Department Care Team (Late st Contact Info) Description 05/07/2022 Refill Primary Care at [facility] [address] [facility] [place] [phone] Hoang Castellanos APRN [address] [place] [address] Social History Tobacco Use Types Packs/Day Years [...] None 05/20/2022 8:00 AM [facility] DX ROOM 2 MH Xray [facility] Rad 05/20/2022 9:00 AM Freddy Dolan PA [facility] [id number] [facility] 05/20/2022 To Be Determined Norman, Kimberly M [...] None 06/23/2022 To Be Determined [facility] If no appointment recommendation [...] filedocumented in this encounter Care Teams Retail Account Manager Relationship Specialty Start Date End Date Hoang Castellanos APRN [address] [place] [address] PCP - General Family Medicine 03/12/20 documented as of this encounter
--- OUTSIDE RECORDS SUMMARY | 2024-08-15 13:27 | XMS_ITS | Clinical Summary ---
Author Organization [facility] Address [facility] [place] [address] Care Team Providers Care Ambulatory Services Representative Name Role Phone Hoang Castellanos APRN Primary Care Provider [phone] Allergies Active Allergy Reactions Criticality Noted Date [...] mg Tablet, SublingualIndication s:Coronary artery disease involving su[place]amish coronary artery of su[place] heart without angina pectoris Place 1 tablet [...] Miconazole PowderIndications:De rmal mycosis 1 Application by [facility].(Non-Drug; Combo Route) route 2 times daily. 100 g 3 01/14/2022 Active isosorbide mononitrate CR (Imdur) 30 mg Tablet Sustained Release 24 hrIndications:Almanza ry artery disease involving su[place] coronary artery of su[place] heart without angina pectoris Take 1 tablet [...] Osteoporosis 02/02/2016 Overview (02/02/2016): DEXA done at [facility] on 10/29/15: osteoporosis at the left [...] 03/23/2022 Cerumen impaction 12/13/2014 02/05/2020 Atherosclerosis of su[place]ish co ronary artery of su[place] heart without angina pectoris 05/09/2013 Hypertension 05/09/2013 01/08/2020 Smokes cigarettes 05/09/2013 12/01/2021 Hypothyroidism 05/09/2013 01/08/2020 Obesity, S/P remote gastric bypass in 1996, prior VBG 05/09/2013 03/04/2020 Immunizations Name Administration Dates Next Due Covid-19 Bivalent (Pfizer Co mirnaty) 12yrs+ (4306-9308) 05/13/2022 Covid-19 Monovalent (Pfizer Comirnaty purple cap) [...] in a long term (including now)? No 04/14/2023 Sex and Gender [...] 01/22/2007, 01/22/2007 Zoster vaccine Completed 03/04/2020, 09/24/2019 Pneumoccocal Vaccine: 50+ Completed 2021, 05/19/2017, 05/13/2008 Covid-19 Vaccine Completed 04/12/2024, 01/2023, 05/13/2022, Additional history exists Medical Devices Implanted Type Area Editor Book Device Identifier Shelf Expiration Date Model / Serial / Lot Graft Bone Filler 1-84ado30pe Dbm Freeze Dried Chips ([id number]) (Autoreq) - [id number] Implanted:Qty : 1 on 10/30/2021 by Campos Puente MD at [facility] IMPLANTS N/A: Spine Cervical [employer] - [employer] 06/16/2025 [id number] / [id number] / [id number] Graft Bone Filler 5cc Dbm Jar Putty Ifeoma ([id number]) (Autoreq) - [id number] Implanted:Qty : 1 on 10/30/2021 by Campos Puente MD at [facility] IMPLANTS N/A: Spine Cervical [employer] - [employer] 06/08/2024 [id number] / [id number] / Yaya Spinal 3.5x25mm [place]ito Cervical Pre Cut Ti ([id number]) (Autoreq) - [id number] Implanted:Qty : 2 on 10/30/2021 by Campos Puente MD at [facility] IMPLANTS N/A: Spine Cervical [employer] - [employer] [id number] / / Screw Spinal 3.5x12mm Posterior Cervical Mltaxl Sld Ti ([id number]) (Autoreq) - [id number] Implanted:Qty : 4 on 10/30/2021 by Campos Puente MD at [facility] IMPLANTS N/A: Spine Cervical [employer] - [employer] [id number] / / Screw Spinal Set Posterior Cervical Mltaxl Sld Pt Infinity ([id number]) (Autoreq) - [id number] Implanted:Qty : 1 on 10/30/2021 by Campos Puente MD at [facility] IMPLANTS N/A: Spine Cervical [employer] [id number] / / Procedures Procedure Name Priority Date/Time [...] EST) Glucose 131 65 - 199 mg/dL [facility] Comment:Diabetes: >=200 mg/d L plus symptoms Blood Urea Nitrogen 24(H) 8 - 18 mg/dL [facility] Creatinine 0.69(L) 0.70 - 1.20 mg/dL [facility] Sodium 139 135 - 145 mmol/L [facility] Potassium 4.5 3.5 - 5.0 mmol/L [facility] Comment: Please note: ??Patients with WBC >100,000 may have falsely elevated Potassium levels. ??For accurate Potassium quantification in these patients send serum separator tube (gold top) for subsequent determinations. ??Contact the Clinical Chemistry Laboratory if there are any questions. Chloride 100 98 - 107 mmol/L [facility] Carbon Dioxide 30 22 - 31 mmol/L [facility] Anion Gap 9 5 - 15 mmol/L [facility] Calcium 10.0 8.5 - 10.5 mg/dL [facility] Protein, Total 6.9 6.1 - 8.0 g/dL [facility] Albumin 4.4 3.2 - 5.2 g/dL [facility] Aspartate Aminotransferase 20 0 - 30 unit/L [facility] Alanine Aminotransferase 21 0 - 30 unit/L [facility] Alkaline Phosphatase 97 35 - 105 unit/L [facility] Bilirubin, Total <0.2(L) 0.2 - 1.3 mg/dL [facility] Est Glomerular Filtration Rate 97 >=60 mL/min/1. 73 m?? [facility] Comment: This patient's estimated GFR was [...] Agency Comment Spec In Lab Priya Charles MUD WORKER CHEMISTRY ORDERA BLES [facility] [place] [address] * Mammo Screening Cad and Jessy Bilateral [...] Documents on File Type Date Recorded Patient Ticker Wirer Expl anation Advance Directives and Livin g [...] is based on Patients wishes. Care Teams Ambulatory Services Representative Relationship Specialty Start Date End Date Hoang Castellanos, MUD WORKER [address] [place] [address] PCP - General Family Medicine 03/12/20
--- OUTSIDE RECORDS SUMMARY | 2024-08-15 13:27 | XMS_ITS | Encounter Summary ---
Author Organization [facility] Address [facility] [place] [address] Care Team Providers Care Technical Product Manager Name Role Phone Hoang Castellanos APRN Primary Care Provider Encounter Details Date Type Department Care Team (Late st Contact Info) Description 04/21/2022 11:00 AM EDT Home Care Visit [facility] for Care [address] [place] [phone] Kimberly Austin, EDITOR INDEX LT COIL WRAPPER HOME VISIT Social History Tobacco Use Types [...] Care Plan Visit Details Visit Type -LTC COIL WRAPPER Home Vis it Discipline -Home Health Aide [...] Completed [facility] KITCHEN AREA Description: [facility] kitchen area Problem:House Keeping Goal:Aide [...] refused documented in this encounter Care Teams Technical Product Manager Relationship Specialty Start Date End Date Hoang Castellanos, JANITOR HELPER [address] [place] [address] PCP - General Family Medicine 03/12/20 documented as of this encounter
--- OUTSIDE RECORDS SUMMARY | 2024-08-15 13:27 | XMS_ITS | Encounter Summary ---
Author Organization [facility] Address [facility] [place] [address] Care Team Providers Care Installation Service Representative Name Role Phone Hoang Castellanos APRN Primary Care Provider Encounter Details Date Type Department Care Team (Late st Contact Info) Description 05/05/2022 12:00 PM EDT Home Care Visit [facility] for Care [address] [place] [phone] Kimberly Austin, THREAD MARKER LT WATER AEROBICS INSTRUCTOR HOME VISIT Social History Tobacco Use Types [...] Care Plan Visit Details Visit Type -LTC WATER AEROBICS INSTRUCTOR Home Vis it Discipline -Home Health Aide Problems Problem Description Start Date Status Goals Interve ntions A Required Screenings Disciplines: [facility] 03/25/2022 Active 1 goal linked to scheduled/documente d intervention 1 goal intervention scheduled/documente d in this visit Other Disciplines: [facility] 03/25/2022 Active 1 goal linked to scheduled/documente d intervention 1 goal intervention scheduled/documente d in this visit House Keeping Disciplines: [facility] 03/25/2022 Active 1 goal linked to scheduled/documente d intervention 9 goal interventions scheduled/documente d in this visit Personal Care Disciplines: [facility] 03/25/2022 Active 1 goal linked [...] of patient's environment as directed Completed [facility] KITCHEN AREA Description: Straighten kitchen area Problem:House [...] refused documented in this encounter Care Teams Installation Service Representative Relationship Specialty Start Date End Date Hoang Castellanos, CORPORATE RECEPTIONIST [address] [place] [address] PCP - General Family Medicine 03/12/20 documented as of this encounter
--- OUTSIDE RECORDS SUMMARY | 2024-08-15 13:27 | XMS_ITS | Encounter Summary ---
Author Organization [facility] Address [facility] [place] [address] Care Team Providers Care Air Intelligence Officer Name Role Phone Hoang Castellanos APRN Primary Care Provider Encounter Details Date Type Department Care Team (Late st Contact Info) Description 05/03/2022 12:00 PM EDT Home Care Visit [facility] for Care [address] [place] [phone] Kimberly Austin, TRAFFIC COUNTER LT MARINE CONSULTANT HOME VISIT Social History Tobacco Use [...] Plan Visit Details Visit Type -LTC MARINE CONSULTANT Home Vis it Discipline -Home Health [...] refused documented in this encounter Care Teams Air Intelligence Officer Relationship Specialty Start Date End Date Hoang Castellanos, MOTORCYCLE SERVICE TECHNICIAN [address] [place] [address] PCP - General Family Medicine 03/12/20 documented as of this encounter
--- OUTSIDE RECORDS SUMMARY | 2024-08-15 13:27 | XMS_ITS | Encounter Summary ---
Author Organization [facility] Address [facility] [place] [address] Care Team Providers Care Ad Operations Specialist Name Role Phone Hoang Castellanos APRN Primary Care Provider [phone] Reason for Visit * Reason Comments Medication Refill Encounter Details Date Type Department Care Team (Late st Contact Info) Description 05/07/2022 Refill [place] [address] Michael Espinoza MD [facility] [place] [address] Social History Tobacco Use Types Packs/Day Years [...] on filedocumented in this encounter Care Teams Ad Operations Specialist Relationship Specialty Start Date End Date Hoang Castellanos APRN [address] [place] [address] PCP - General Family Medicine 03/12/20 documented as of this encounter
--- OUTSIDE RECORDS SUMMARY | 2024-08-15 13:27 | XMS_ITS | Encounter Summary ---
Author Organization [facility] Address [facility] [place] [address] Care Team Providers Care Biology Manager Name Role Phone Hoang Castellanos APRN [...] on filedocumented in this encounter Care Teams Biology Manager Relationship Specialty Start Date End Date Hoang Castellanos, FUSING MACHINE TENDER [address] [place] [address] PCP - General Family Medicine 03/12/20 documented as of this encounter
--- OUTSIDE RECORDS SUMMARY | 2024-08-15 13:27 | XMS_ITS | Encounter Summary ---
Author Organization [place] [address] Care Team Providers Care Top Lift Nailer Name Role Phone Hoang Castellanos APRN Primary Care Provider Encounter Details Date Type Department Care Team (Latest Contact Info) Description 05/26/2022 1:30 PM EDT TH Visit (TeleHealth) Primary Care at [facility] [address] [facility] [place] [phone] Hoang Castellanos APRN [address] [place] [address] Cervical spinal stenosis; Arthrodesis present; Right leg [...] this encounter Progress Notes * Hoang Castellanos, THREADER OPERATOR - 05/26/2022 1:30 PM EDT [facility] Telehealth Encounter Nurse Call: Patient called to notify of telehealth visit. For patients in facilities or with caregivers, these were also notified. BEST PHONE NUMBER: [phone] Is this a cell phone number: yes [...] who presents for a telehealth visit with [facility]. Concerns: 1. Paperwork Chronic care needs Urinary incontinence, occasional fecal incontinence RLE weakness Cervical stenosis, chronic neck pain PTSD/LAURA/bipolar disorder Moving to a facility in [facility] Will be switching her primary care Objective: VS: Physical Exam Assessment and Plan: Diagnoses and all orders for this visit: Cervical spinal stenosis Arthrodesis present Right leg weakness Administrative encounter On the day of this encounter, I the medical provider spent a total of at least 20 minutes providingthis patient's care. This includes time spent [id number] with the patient performing evaluation, examination, and counseling. It also includes non [id number] time preparing to see the patient, reviewing the chart, coordinating care, and documenting clinical information in the electronic health record. (Established patient total visit time: 10045 - 20min, 01145 - 30 min, 64448 - 40 min; New patient total visit times: 78217 - 30 min, 20457 - 45 min, 62578 - 60 min) Follow-up: No follow-ups on [...] unspecified documented in this encounter Care Teams Top Lift Nailer Relationship Specialty Start Date End Date Hoang Castellanos APRN [address] [place] [address] PCP - General Family Medicine 03/12/20 documented as of this encounter
--- OUTSIDE RECORDS SUMMARY | 2024-08-15 13:27 | XMS_ITS | Encounter Summary ---
Author Organization [facility] Address [facility] [place] [address] Care Team Providers Care Tobacco Farmworker Name Role Phone Hoang Castellanos APRN Primary Care Provider [phone] Encounter Details Date Type Department Care Team (Late st Contact Info) Description 04/26/2022 12:00 PM EDT Home Care Visit [facility] [address] [place] [phone] Kimberly Austin, ELECTRICAL LINEWORKER LT CONTACT WORKER LITHOGRAPHY HOME VISIT Social History Tobacco Use Types [...] Care Plan Visit Details Visit Type -LTC CONTACT WORKER LITHOGRAPHY Home Vis it Discipline -Home Health Aide Problems Problem Description Start Date Status Goals Interve ntions A Required Screenings Disciplines: [facility] 03/25/2022 Active 1 goal linked to scheduled/documente d intervention 1 goal intervention scheduled/documente d in this visit Other Disciplines: [facility] 03/25/2022 Active 1 goal linked to scheduled/documente d intervention 1 goal intervention scheduled/documente d in this visit House Keeping Disciplines: [facility] 03/25/2022 Active 1 goal linked to scheduled/documente d intervention 9 goal interventions scheduled/documente d in this visit Personal Care Disciplines: [facility] 03/25/2022 Active 1 goal linked to [...] refused documented in this encounter Care Teams Tobacco Farmworker Relationship Specialty Start Date End Date Hoang Castellanos, SHIPYARD PAINTER APPRENTICE [address] [place] [address] PCP - General Family Medicine 03/12/20 documented as of this encounter
--- OUTSIDE RECORDS SUMMARY | 2024-08-15 13:27 | XMS_ITS | Encounter Summary ---
Author Organization [facility] [place] [address] Care Team Providers Care Metal Crafts Teacher Name Role Phone Hoang Castellanos APRN Primary Care Provider [phone] Encounter Details Date Type Department Care Team (Latest Contact Info) Description 05/13/2022 9:45 AM EDT Clinical Support Primary Care at [facility] [place] [address] Need for vaccination Social History [...] - 05/13/2022 9:45 AM EDT Flu Vaccine [id number] Age Considerations Vaccine Name Pediatric [] 6 [...] had any of the following: History of [place]illian-[place] Syndrome, allergy to eggs, or allergicreaction to [...] disease documented in this encounter Care Teams Metal Crafts Teacher Relationship Specialty Start Date End Date Hoang Castellanos, ROLLING MILL OPERATOR [address] [place] [address] PCP - General Family Medicine 03/12/20 documented as of this encounter
--- OUTSIDE RECORDS SUMMARY | 2024-08-15 13:27 | XMS_ITS | Encounter Summary ---
Author Organization [facility] Address [facility] [place] [address] Care Team Providers Care Collection Advisor Name Role Phone Hoang Castellanos APRN Primary Care Provider Encounter Details Date Type Department Care Team (Late st Contact Info) Description 05/06/2022 12:00 PM EDT Home Care Visit [facility] for [facility] [address] [place] [phone] Kimberly Austin, SLUNK SKIN CURER LT PAYROLL ADMINISTRATOR HOME VISIT Social History Tobacco Use [...] Care Plan Visit Details Visit Type -LTC PAYROLL ADMINISTRATOR Home Vis it Discipline -Home Health Aide Problems Problem Description Start Date Status Goals Interve ntions A Required Screenings Disciplines: [facility] 03/25/2022 Active 1 goal linked to scheduled/documente d intervention 1 goal intervention scheduled/documente d in this visit Other Disciplines: [facility] 03/25/2022 Active 1 goal linked to scheduled/documente d intervention 1 goal intervention scheduled/documente d in this visit House Keeping Disciplines: [facility] 03/25/2022 Active 1 goal linked to scheduled/documente d intervention 9 goal interventions scheduled/documente d in this visit Personal Care Disciplines: [facility] 03/25/2022 Active 1 goal linked to [...] clean-up of patient's environment as directed Completed [facility] KITCHEN AREA Description: Straighten kitchen [...] documented in this encounter Care Teams Collection Advisor Relationship Specialty Start Date End Date Hoang Castellanos, LEAD SECTION SUPERVISOR [address] [place] [address] PCP - General Family Medicine 03/12/20 documented as of this encounter
--- OUTSIDE RECORDS SUMMARY | 2024-08-15 13:27 | XMS_ITS | Encounter Summary ---
Author Organization [facility] Address [facility] [place] [address] Care Team Providers Care Business Intelligence Administrator Name Role Phone Hoang Castellanos APRN [...] filedocumented in this encounter Care Teams Business Intelligence Administrator Relationship Specialty Start Date End Date Hoang Castellanos, TECHNOLOGY INFUSION SPECIALIST [address] [place] [address] PCP - General Family Medicine 03/12/20 documented as of this encounter
--- OUTSIDE RECORDS SUMMARY | 2024-08-15 13:27 | XMS_ITS | Encounter Summary ---
Author Organization [facility] Address [facility] [place] [address] Care Team Providers Care Batch Heat Treat Operator Name Role Phone Hoang Castellanos APRN Primary Care Provider Encounter Details Date Type Department Care Team (Late st Contact Info) Description 04/22/2022 12:00 PM EDT Home Care Visit [facility] for [facility] [address] [place] [phone] Kimberly Austin, FLUE GAS ANALYST LT JUNIOR GRAPHIC DESIGNER HOME VISIT Social History Tobacco Use [...] Care Plan Visit Details Visit Type -LTC JUNIOR GRAPHIC DESIGNER Home Vis it Discipline -Home Health [...] refused documented in this encounter Care Teams Batch Heat Treat Operator Relationship Specialty Start Date End Date Hoang Castellanos, HULL DRAFTER [address] [place] [address] PCP - General Family Medicine 03/12/20 documented as of this encounter
--- OUTSIDE RECORDS SUMMARY | 2024-08-15 13:27 | XMS_ITS | Encounter Summary ---
Author Organization [facility] [place] [address] Care Team Providers Care Editor Trade Journal Name Role Phone Hoang Castellanos APRN Primary Care Provider Reason for Visit * Reason Comments Establish Care Encounter Details Date Type Department Care Team (Late st Contact Info) Description 07/13/2023 1:30 PM EST Office [place] [address] Jessica Mcfarland APRN [facility] [place] [address] Meena Hastings, JEREMY S/P gastric bypass; Disorder [...] slept in a alf (including now)? No 04/14/2023 Sex and Gender [...] Mcfarland APRN - 07/13/2023 1:30 PM EST [facility] aircraft life support fitter Lela [phone] and [place] [phone] Dietitians: [phone] Surgeons/ nurse practitioners: [phone] Nurse line: [phone] Dear Jeannie, Please see your electronic medical record note from today for details we discussed at your visit. Below is some additional general information that you may find helpful. Testing: It would be helpful if you can have your lab work drawn a couple days before your visit guerline [facility] facility so the results are available at the time of your follow up visit. If you have labwork done by your primary health care aide before that date, please have a copy sent to the Bariatric Surgery Program. Please call/send my HIGH MOBILITY message if you have not heard from us within 2 weeks of having labs work done. Here's the link to [facility] Lab hours and locations: [email or web address] Next visit: Follow up visits are done at 4 months and 12 months after surgery and yearly thereafter. Some patients are evaluated on a more frequent basis. Please call [phone] if you do not receive an appointment [...] Blow dry area on low setting with balance and hairspring assembler. Avoid excessive heat and/or sweating as friction [...] such as Ibuprofen (Advil), Aleve (Naproxen), Excedrin, Aimee-[place] should be used sparingly after gastric bypass, [...] Our post surgery support group meets at [facility] on the first Tuesday of every month from 1:00 PM-2:00 PM. You can attend online or in person. Use the following link to attend online: [email or web address] Nutrition and Activity apps- Baritastic, My Fitness Pal, Lose It, My Plate Internet resources: www.[employer] wwwCipherApps www.bariatriceaSilicon Frontline Technology.iPositioning www.Major League Gaming.iPositioning/blog [facility] facebook page: https://www.facebook.com/[facility] FAIRFAXBariatricSurgery Books & Magazines: - Recipes for Life After Weight Loss Surgery by Suly Cruz - Shrink Yourself by Dr Juan Carlos Carlos - Eating Well - www.[place].iPositioning - Cooking Light- www.cookinglight.iPositioning Anxiety: The Happiness Trap by Efren Richey The Mindfulness and acceptance workbook for anxiety By Jose A Acosta. Mindful eating: What are you Hungry For? By Ricardo Murray The Mindful Diet by Katerine Nelson and the [facility] group. Emotional eating: End Emotional Eating by Tamar Russo Calming the Emotional Storm Jessica Hayes documented in this encounter Progress Notes * Jessica Mcfarland APRN - 07/13/2023 1:30 PM EST [place] [address] Reason for visit: Bariatric Surgery follow up [...] unsure of frequency). Supplements: Per list from [place] No MV B12 1000 mcg daily Blood [...] Michela and discussed meal plan with Daniella (modeling director), who states gluten free meal plan has been discontinued. Discussed risks associated with alcohol intake after bariatric surgery (increased risk of alcohol misuse/abuse, increased risk of ulcers, empty calorie). Patient has met with mangle operator garments today, please see note for additional details/dietary [...] all bariatric surgery patients is 2x the BOOKING SUPERVISOR) -Continue B12 1000 mcg once a day [...] If labwork is done by the primary health care aide: please send a copy to the Bariatric Surgery Program, General Surgery Clinic, [facility], or fax [phone] Meena Lewis, RD - 07/13/2023 1:30 PM [...] with the [facility] Pooling Operator. Social History: Has a supportive disease case manager rn. OBJECTIVE: Type of Surgery: non-divided RNY gastric [...] 07/13/23 203# 64% 34.8 23 years post-op [place] Body Weight (based on BMI of 25): [...] with the [facility] Pooling Operator to further understand the reasoning for the [...] 25 OH 56 21 - 100 ng/mL [facility] Vit D Interp Sufficient [facility] Blood 07/13/2023 12:3 8 PM EST 07/13/2023 12:43 PM EST Narrative Resulting Agency Comment Spec In Lab Priya Charles FIELD INSTALLER CHEMISTRY ORDERA BLES [facility] [place] [address] * (ABNORMAL) Vitamin B12 (07/13/2023 12:38 PM EST) Vitamin B12 1,754(H) 232 - 1,245 pg/mL [facility] Blood 07/13/2023 12:3 8 PM EST 07/13/2023 12:43 PM EST Narrative Resulting Agency Comment Spec In Lab Priya Charles APRN CHEMISTRY ORDERA BLES Performing Organization Address City/[facility] Co de Phone Number [facility] [place] [address] * (ABNORMAL) Vitamin B1, whole blood (07/13/2023 12:38 PM EST) Vit B1 Lvl Wb (NOVEMBER) 189(H) 70 - 180 nmol/L [facility] Comment: ADDITIONAL INFORMATION This test was developed and its performance characteristics determined by [facility] in a manner consistent with CLIA requirements. This test has not been cleared or approved by the U.S. Food and Drug Administration. Test Performed by: [facility] [place] [address] Fundraiser: Skinny Reyes M.D. Ph.D.; CLIA# [id number] Blood 07/13/2023 12:3 8 PM EST 07/14/2023 9:55 AM EST Narrative Resulting Agency Comment Spec In Lab Priya Charles APRN LAB SEND OUT ORD ERABLES Performing Organization Address [facility]/ZIP Co de Phone Number [facility] [place] [address] * PTH (07/13/2023 12:38 PM EST) Parathyroid Hormone 46 15 - 65 pg/mL [facility] Blood 07/13/2023 12:3 8 PM EST 07/13/2023 12:43 PM EST Narrative Resulting Agency Comment Spec In Lab Priya M [place] FIELD INSTALLER CHEMISTRY ORDERA BLES [facility] [place] [address] * Iron and TIBC (07/13/2023 12:38 PM EST) Iron 74 30 - 150 mcg/dL [facility] TIBC 344 250 - 450 mcg/dL [facility] Iron Saturation 22 20 - 50 % [facility] Blood 07/13/2023 12:3 8 PM EST 07/13/2023 12:43 PM EST Narrative Resulting Agency Comment Spec In Lab Priya Charles APRN CHEMISTRY ORDERA BLES Performing Organization Address City/[facility] Co de Phone Number [facility] [place] [address] * (ABNORMAL) Hemogram (07/13/2023 12:38 PM EST) White Blood Cell 11.1(H) 4.0 - 9.5 x10(3)/mc L [facility] Red Blood Cell 4.53 4.00 - 5.21 x10(6)/mc L [facility] Hemoglobin 14.3 11.7 - 15.5 g/dL [facility] Hematocrit 44.5 35.7 - 45.8 % [facility] Mean Cell Volume 98.2(H) 82.6 - 94.4 fL [facility] Mean Cell Hemoglobin 31.6 27.1 - 32.0 pg [facility] Mean Cell Hemoglobin Concentration 32.1 31.7 - 35.0 g/dL [facility] Platelet 226 145 - 357 x10(3)/mc L [facility] RDW Standard Deviation 52.4(H) 37.0 - 46.0 fL [facility] RDW coefficient of variation 14.4(H) 11.5 - 14.1 % [facility] Mean Platelet Volume 9.4 7.6 - 12.9 fL [facility] NRBC% auto 0.0 % [facility] NRBC Absolute 0.000 0.000 - 0.000 x10(3)/mc L [facility] Blood 07/13/2023 12:3 8 PM EST 07/13/2023 12:43 PM EST Narrative Resulting Agency Comment Spec In Lab Priya Trinidad [place] SAM HEMATOLOGY ORDER MORENO Performing Organization Address City/[facility] Co de Phone Number [facility] [place] [address] * Folate, serum (07/13/2023 12:38 PM EST) Folate 16.5 4.8 - 24.2 ng/mL [facility] Blood 07/13/2023 12:3 8 PM EST 07/13/2023 12:43 PM EST Narrative Resulting Agency Comment Spec In Lab Priya Ricoliher FIELD INSTALLER CHEMISTRY ORDERA BLES Performing Organization Address [facility] Co de Phone Number [facility] [place] [address] * Ferritin (07/13/2023 12:38 PM EST) Ferritin 46 11 - 328 ng/mL [facility] Comment: Please note that as of 06/29/2023, the reference intervals for Ferritin have been updated. Blood 07/13/2023 12:3 8 PM EST 07/13/2023 12:43 PM EST Narrative Resulting Agency Comment Spec In Lab Priya Trinidad [place] SAM CHEMISTRY ORDERA BLES Performing Organization Address [facility] Co de Phone Number [facility] [place] [address] * (ABNORMAL) Comprehensive metabolic panel (non-fasting) (07/13/2023 12:38 PM EST) Glucose 131 65 - 199 mg/dL [facility] Comment:Diabetes: >=200 mg/d L plus symptoms Blood Urea Nitrogen 24(H) 8 - 18 mg/dL [facility] Creatinine 0.69(L) 0.70 - 1.20 mg/dL [facility] Sodium 139 135 - 145 mmol/L [facility] Potassium 4.5 3.5 - 5.0 mmol/L [facility] Comment: Please note: ??Patients with WBC >100,000 may have falsely elevated Potassium levels. ??For accurate Potassium quantification in these patients send serum separator tube (gold top) for subsequent determinations. ??Contact the Clinical Chemistry Laboratory if there are any questions. Chloride 100 98 - 107 mmol/L [facility] Carbon Dioxide 30 22 - 31 mmol/L [facility] Anion Gap 9 5 - 15 mmol/L [facility] Calcium 10.0 8.5 - 10.5 mg/dL [facility] Protein, Total 6.9 6.1 - 8.0 g/dL [facility] Albumin 4.4 3.2 - 5.2 g/dL [facility] Aspartate Aminotransferase 20 0 - 30 unit/L [facility] Alanine Aminotransferase 21 0 - 30 unit/L [facility] Alkaline Phosphatase 97 35 - 105 unit/L [facility] Bilirubin, Total <0.2(L) 0.2 - 1.3 mg/dL [facility] Est Glomerular Filtration Rate 97 >=60 mL/min/1. 73 m?? 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
--- OUTSIDE RECORDS SUMMARY | 2024-08-15 13:27 | XMS_ITS | Encounter Summary ---
Author Organization [facility] Address [facility] [address] Care Team Providers Care Python Architect Name Role Phone Hoang Castellanos APRN Primary Care Provider Encounter Details Date Type Department Care Team (Late st Contact Info) Description 04/27/2022 9:00 AM EDT Home Care Visit [facility] [address] [place] [phone] Kimberly Austin, WRECKING CAR DRIVER LT MACHINE TAILER HOME VISIT Social History Tobacco Use Types [...] Care Plan Visit Details Visit Type -LTC MACHINE TAILER Home Vis it Discipline -Home Health Aide [...] be perfomed by aide as directed Completed [facility] KITCHEN AREA Description: Straighten kitchen area Problem:House [...] refused documented in this encounter Care Teams Python Architect Relationship Specialty Start Date End Date Hoang Castellanos APRN [address] [place] [address] PCP - General Family Medicine 03/12/20 documented as of this encounter
--- OUTSIDE RECORDS SUMMARY | 2024-08-15 13:27 | XMS_ITS | Encounter Summary ---
Author Organization [facility] Address [facility] [place] [address] Care Team Providers Care Capacitor Inspector Name Role Phone Hoang Castellanos APRN Primary Care Provider Encounter Details Date Type Department Care Team (Late st Contact Info) Description 04/30/2022 11:00 AM EDT Home Care Visit [facility] for Care [address] [place] [phone] Kimberly Austin, MANAGER RENTAL LT TIRE RETREADER HOME VISIT Social History Tobacco Use Types [...] Care Plan Visit Details Visit Type -LTC TIRE RETREADER Home Vis it Discipline -Home Health Aide Problems Problem Description Start Date Status Goals Interve ntions A Required Screenings Disciplines: [facility] 03/25/2022 Active 1 goal linked to scheduled/documente d intervention 1 goal intervention scheduled/documente d in this visit Other Disciplines: [facility] 03/25/2022 Active 1 goal linked to scheduled/documente d intervention 1 goal intervention scheduled/documente d in this visit House Keeping Disciplines: [facility] 03/25/2022 Active 1 goal linked to scheduled/documente d intervention 9 goal interventions scheduled/documente d in this visit Personal Care Disciplines: [facility] 03/25/2022 Active 1 goal linked [...] N/A documented in this encounter Care Teams Capacitor Inspector Relationship Specialty Start Date End Date Hoang Casetllanos APRN [address] [place] [address] PCP - General Family Medicine 03/12/20 documented as of this encounter
--- OUTSIDE RECORDS SUMMARY | 2024-08-15 13:27 | XMS_ITS | Encounter Summary ---
Author Organization [facility] [place] [address] Care Team Providers Care Tire Mold Engraver Name Role Phone Hoang Castellanos APRN Primary Care Provider Reason for Visit * Consultation (Routine) - Closed Specialty Diagnoses / Procedures Referred By Vanita t Referred To Contact Hematology and Oncology Diagnoses Macrocytosis Anemia, unspecified type Jolly Davenport APRN [address] [place] [address] [facility] Hem [address]c [address] [place] [address] Referral ID Status Reason Start Date Expiration Date V isits Requested Visits Authorized [id number] Closed Consult, Test & Treat PCP Updated and/or Approved 03/31/2023 03/30/2024 12 12 Encounter Details Date Type Department Care Team (Late st Contact Info) Description 04/14/2023 3:00 PM EDT Office Visit Hematology/Oncology at [address] [phone] Matthew Ortiz MD [facility] [place] [address] Macrocytosis without anemia Social History [...] available records including old computer records at [facility] The patient has multiple medical problems [...] Rfl: 3 Miconazole Powder, 1 Application by [facility].(Non-Drug; Combo Route) route [...] organs documented in this encounter Care Teams Tire Mold Engraver Relationship Specialty Start Date End Date Hoang Castellanos, SUPPORTABILITY ENGINEER [address] [place] [address] PCP - General Family Medicine 03/12/20 documented as of this encounter
--- OUTSIDE RECORDS SUMMARY | 2024-08-15 13:27 | XMS_ITS | Encounter Summary ---
[place] [address] Care Team Providers Care Machine Feller Name Role Phone Hoang Castellanos APRN Primary Care Provider Encounter Details Date Type Department Care Team (Late st Contact Info) Description 07/14/2023 Telephone [place] [phone] Meena Hastings, RD Social History Tobacco Use [...] EST Called [facility] after appt with Jeannie on 07/13/23 and spoke with Daniella, the inpatient nursing aide. Reviewed vitamin and mineral supplement recommendation with [...] her to have documented. Daniella requested a copying machine mechanic of Jeannie's labwork be sent to the [facility]. Asked Daniella about Jeannie's gluten-free diet. Daniella reported that Jeannie has struggled with pain management since joining the [facility] about 1 yr ago. Jeannie will [...] filedocumented in this encounter Care Teams Machine Feller Relationship Specialty Start Date End Date Hoang Castellanos APRN [address] [place] [address] PCP - General Family Medicine 03/12/20 documented as of this encounter
--- OUTSIDE RECORDS SUMMARY | 2024-08-15 13:27 | XMS_ITS | Encounter Summary ---
Author [facility] [place] [address] Care Team Providers Care Exterminator Helper Name Role Phone Hoang Castellanos APRN Primary Care Provider Encounter Details Date Type Department Care Team (Late st Contact Info) Description 12/31/2022 Orders [place] [address] Priya Charles, BOATBUILDER SUPERVISOR [facility] [place] [address] S/P gastric bypass; Disorder of iron metabolism; [...] nonabsorption documented in this encounter Care Teams Exterminator Helper Relationship Specialty Start Date End Date Hoang Castellanos APRN [address] [place] [address] PCP - General Family Medicine 03/12/20 documented as of this encounter
--- OUTSIDE RECORDS SUMMARY | 2024-08-15 13:27 | XMS_ITS | Encounter Summary ---
Author Organization [facility] Address [facility] [place] [address] Care Team Providers Care Retail Attendant Name Role Phone Hoang Castellanos APRN Primary Care Provider Encounter Details Date Type Department Care Team (Late st Contact Info) Description 04/28/2022 12:00 PM EDT Home Care Visit [facility] for Care [address] [place] [phone] Kimberly Austin, SOLAR DESIGNER LT WINDSCREEN FITTER HOME VISIT Social History Tobacco Use Types [...] Care Plan Visit Details Visit Type -LTC WINDSCREEN FITTER Home Vis it Discipline -Home Health Aide Problems Problem Description Start Date Status Goals Interve ntions A Required Screenings Disciplines: [facility] 03/25/2022 Active 1 goal linked to scheduled/documente d intervention 1 goal intervention scheduled/documente d in this visit Other Disciplines: [facility] 03/25/2022 Active 1 goal linked to scheduled/documente d intervention 1 goal intervention scheduled/documente d in this visit House Keeping Disciplines: [facility] 03/25/2022 Active 1 goal linked to scheduled/documente d intervention 9 goal interventions scheduled/documente d in this visit Personal Care Disciplines: [facility] 03/25/2022 Active 1 goal linked [...] (ALMANZA VIRUS) SCREEN QUESTIONS Description: Complete COVID-19 (Almazna virus) screening questions Problem:A Required Screenings Goal:Screenings [...] Completed documented in this encounter Care Teams Retail Attendant Relationship Specialty Start Date End Date Hoang Castellanos, STRATEGIC PLANNING DIRECTOR [address] [place] [address] PCP - General Family Medicine 03/12/20 documented as of this encounter
--- OUTSIDE RECORDS SUMMARY | 2024-08-15 13:27 | XMS_ITS | Encounter Summary ---
Author Organization [facility] Address [facility] [place] [address] Care Team Providers Care Shoemaker Custom Name Role Phone Hoang Castellanos APRN Primary Care Provider Reason for Visit * Reason Onset Date Comments Prior Authorization 04/20/2022 Spiriva Resp imat 2.5mcg Encounter Details Date Type Department Care Team (Late st Contact Info) Description 04/20/2022 Telephone Primary Care at [facility] [address] [place] [phone] Gautam Davidson Prior Authorization (Spiriva Respimat 2.5mcg) [...] Prior Authorization Request received via: Fax from [employer]: Medicare Part D Renewed previous Prior [...] on filedocumented in this encounter Care Teams Shoemaker Custom Relationship Specialty Start Date End Date Hoang Castellanos, PRIMARY TEACHING ASSISTANT [address] [place] [address] PCP - General Family Medicine 03/12/20 documented as of this encounter
--- OUTSIDE RECORDS SUMMARY | 2024-08-15 13:27 | XMS_ITS | Encounter Summary ---
Author Organization [facility] Address [facility] [place] [address] Care Team Providers Care Box Annealer Name Role Phone Hoang Castellanos APRN Primary [...] filedocumented in this encounter Care Teams Box Annealer Relationship Specialty Start Date End Date Hoang Castellanos, DEVELOPER ARCHITECT [address] [place] [address] PCP - General Family Medicine 03/12/20 documented as of this encounter
--- OUTSIDE RECORDS SUMMARY | 2024-08-15 13:27 | XMS_ITS | Encounter Summary ---
Author Organization [facility] Address [facility] [place] [address] Care Team Providers Care Sas Administrator Name Role Phone Hoang Castellanos APRN Primary Care Provider Encounter Details Date Type Department Care Team (Late st Contact Info) Description 05/06/2022 Telephone Primary Care at [facility] [place] [phone] Prior, Gabriela Cruz Social History Tobacco Use [...] to know if release was rec'd for Lane Called back: Advised release had been rec'd documented in this encounter Plan of Treatment Not on file documented as of this encounter Visit Diagnoses Not on filedocumented in this encounter Care Teams Sas Administrator Relationship Specialty Start Date End Date Hoang Castellanos APRN [address] [place] [address] PCP - General Family Medicine 03/12/20 documented as of this encounter
--- OUTSIDE RECORDS SUMMARY | 2024-08-15 13:28 | XMS_ITS | Encounter Summary ---
Author Organization [facility] Address [facility] [place] [address] Care Team Providers Care Finish Off Operator Name Role Phone Hoang Castellanos APRN Primary Care Provider [phone] Encounter Details Date Type Department Care Team (Late st Contact Info) Description 03/31/2022 1:00 PM EDT Home Care Visit [facility] for Care [address] [place] [phone] Kimberly Austin, TAX ASSOCIATE LT RAT POISONER HOME VISIT Social History Tobacco Use Types [...] Care Plan Visit Details Visit Type -LTC RAT POISONER Home Vis it Discipline -Home Health Aide Problems Problem Description Start Date Status Goals Interve ntions A Required Screenings Disciplines: [facility] 03/25/2022 Active 1 goal linked to scheduled/documente d intervention 1 goal intervention scheduled/documente d in this visit Other Disciplines: [facility] 03/25/2022 Active 1 goal linked to scheduled/documente d intervention 1 goal intervention scheduled/documente d in this visit House Keeping Disciplines: [facility] 03/25/2022 Active 1 goal linked to scheduled/documente d intervention 9 goal interventions scheduled/documente d in this visit Personal Care Disciplines: [facility] 03/25/2022 Active 1 goal linked to [...] Completed documented in this encounter Care Teams Finish Off Operator Relationship Specialty Start Date End Date Hoang Castellanos, CABLE FERRY OPERATOR [address] [place] [address] PCP - General Family Medicine 03/12/20 documented as of this encounter
--- OUTSIDE RECORDS SUMMARY | 2024-08-15 13:28 | XMS_ITS | Encounter Summary ---
Author Organization [facility] Address [facility] [place] [address] Care Team Providers Care Slate Mixer Name Role Phone Hoang Castellanos APRN Primary Care Provider [phone] Reason for Referral * Physical Therapy (Routine) - Closed Specialty Diagnoses / Procedures Referred By Vanita t Referred To Contact Physical Therapy Diagnoses Cervical spinal stenosis Hoang Castellanos APRN [address] [place] [address] Physical Therapy, [address] [address] Referral ID Status Reason Start Date Expiration Date V isits Requested Visits Authorized [id number] Closed Evaluate and Treat 01/22/2022 07/21/2022 12 12 Encounter Details Date Type Department Care Team (Late st Contact Info) Description 01/22/2022 Orders Only Primary [facility] at [facility] [address] [place] [phone] Hoang Castellanos APRN [address] [place] [address] Cervical spinal stenosis Social History Tobacco Use [...] region documented in this encounter Care Teams Slate Mixer Relationship Specialty Start Date End Date Hoang Castellanos, SHIPPING HELPER [address] [place] [address] PCP - General Family Medicine 03/12/20 documented as of this encounter
--- OUTSIDE RECORDS SUMMARY | 2024-08-15 13:28 | XMS_ITS | Encounter Summary ---
Author Organization [facility] Address [place] [address] Care Team Providers Care Industrial Health Engineer Name Role Phone Hoang Castellanos APRN Primary Care Provider [phone] Encounter Details Date Type Department Care Team (Latest Contact Info) Description 01/19/2022 9:00 AM EDT Home Care Visit [facility] [address] [place] [phone] Raj Nowak, PT PT DISCIPLINE DISCHARGE [...] training documented in this encounter Care Teams Industrial Health Engineer Relationship Specialty Start Date End Date Hoang Castellanos APRN [address] [place] [address] PCP - General Family Medicine 03/12/20 documented as of this encounter
--- OUTSIDE RECORDS SUMMARY | 2024-08-15 13:28 | XMS_ITS | Encounter Summary ---
Author Organization [facility] Address [facility] [place] [address] Care Team Providers Care Linux Unix Administrator Name Role Phone Hoang Castellanos APRN Primary Care Provider Encounter Details Date Type Department Care Team (Late st Contact Info) Description 04/14/2022 12:00 PM EDT Home Care Visit [facility] for Care [address] [place] [phone] Kimberly Austin, SKIN LAP BONDER LT OYSTER GRADER HOME VISIT Social History Tobacco Use [...] Plan Visit Details Visit Type -LTC OYSTER GRADER Home Vis it Discipline -Home Health Aide Problems Problem Description Start Date Status Goals Interve ntions A Required Screenings Disciplines: [facility] 03/25/2022 Active 1 goal linked to scheduled/documente d intervention 1 goal intervention scheduled/documente d in this visit Other Disciplines: [facility] 03/25/2022 Active 1 goal linked to scheduled/documente d intervention 1 goal intervention scheduled/documente d in this visit House Keeping Disciplines: [facility] 03/25/2022 Active 1 goal linked to scheduled/documente d intervention 9 goal interventions scheduled/documente d in this visit Personal Care Disciplines: [facility] 03/25/2022 Active 1 goal linked to [...] Completed documented in this encounter Care Teams Linux Unix Administrator Relationship Specialty Start Date End Date Hoang Castellanos APRN [address] [place] [phone] PCP - General Family Medicine 03/12/20 documented as of this encounter
--- OUTSIDE RECORDS SUMMARY | 2024-08-15 13:28 | XMS_ITS | Encounter Summary ---
Author Organization [facility] [place] [address] Care Team Providers Care Branch Operations Specialist Name Role Phone Hoang Castellanos APRN Primary Care Provider Encounter Details Date Type Department Care Team (Late st Contact Info) Description 03/25/2022 Telephone Primary Care at [facility] [address] [place] [place] [phone] Jeannie Luciano, RN Social History Tobacco Use [...] and notes faxed to facility. Lashawn Brunner, STAPLING MACHINE OPERATOR to Me ??? Hoang Castellanos, SAMPLE STEAMER ?? 12:30 PM Samara Gallegos provides Level II (SNF) and Level III (JUDITH). We can certainly send a referral, is pt/spouse consenting to referral? Thanks Lashawn * Telephone Encounter - Jeannie Luciano RN - 03/25/2022 1:55 PM EDT Message received from Angela at [facility] (CHANCE on file) asking for call back to discuss a referral to an [facility] for Jeannie. JUDITH is Samara Gallegos in [facility]. Contact at [facility] is Colin Martinez [phone] fax#[phone]. Angela said a referral is needed to [...] filedocumented in this encounter Care Teams Branch Operations Specialist Relationship Specialty Start Date End Date Hoang Castellanos, SAMPLE STEAMER [address] [place] [address] PCP - General Family Medicine 03/12/20 documented as of this encounter
--- OUTSIDE RECORDS SUMMARY | 2024-08-15 13:28 | XMS_ITS | Encounter Summary ---
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
--- OUTSIDE RECORDS SUMMARY | 2024-08-15 13:28 | XMS_ITS | Encounter Summary ---
Author Organization [facility] Address [facility] [place] [address] Care Team Providers Care Char Filter Tank Tender Name Role Phone Hoang Castellanos APRN Primary Care Provider Reason for Visit * Reason Onset Date Comments Colonoscopy 03/25/2022 Pt screening jessica sierra Encounter Details Date Type Department Care Team (Late st Contact Info) Description 03/25/2022 Telephone Surgical Specialties at [facility] [address] [facility] [place] [phone] [place] Arvizu Colonoscopy (Pt screening questions) Social [...] - 03/25/2022 10:20 AM EDT Jeannie Rico [phone] PCP: Hoang Castellanos APRN Received referral: [...] history of heart surgery, stent placement, or DC (heart attack)? No 4. Do you have [...] on filedocumented in this encounter Care Teams Char Filter Tank Tender Relationship Specialty Start Date End Date Hoang Castellanos, SAM [address] [place] [address] PCP - General Family Medicine 03/12/20 documented as of this encounter
--- OUTSIDE RECORDS SUMMARY | 2024-08-15 13:28 | XMS_ITS | Encounter Summary ---
Author Organization [facility] Address [facility] [place] [address] Care Team Providers Care Artillery Officer Name Role Phone Hoang Castellanos APRN Primary Care Provider Encounter Details Date Type Department Care Team (Late st Contact Info) Description 04/19/2022 11:00 AM EDT Home Care Visit [facility] for Care [address] [place] [phone] Kimberly Austin, INTERACTIVE DEVELOPER LT PRESCHOOL DIRECTOR HOME VISIT Social History Tobacco Use Types [...] Care Plan Visit Details Visit Type -LTC PRESCHOOL DIRECTOR Home Vis it Discipline -Home Health Aide Problems Problem Description Start Date Status Goals Interve ntions A Required Screenings Disciplines: [facility] 03/25/2022 Active 1 goal linked to scheduled/documente d intervention 1 goal intervention scheduled/documente d in this visit Other Disciplines: [facility] 03/25/2022 Active 1 goal linked to scheduled/documente d intervention 1 goal intervention scheduled/documente d in this visit House Keeping Disciplines: [facility] 03/25/2022 Active 1 goal linked to scheduled/documente d intervention 9 goal interventions scheduled/documente d in this visit Personal Care Disciplines: [facility] 03/25/2022 Active 1 goal linked to scheduled/documente [...] refused documented in this encounter Care Teams Artillery Officer Relationship Specialty Start Date End Date Hoang Castellanos, PINMAKER [address] [place] [address] PCP - General Family Medicine 03/12/20 documented as of this encounter
--- OUTSIDE RECORDS SUMMARY | 2024-08-15 13:28 | XMS_ITS | Encounter Summary ---
Author Organization [facility] Address [facility] [place] [address] Care Team Providers Care Larder Cook Name Role Phone Hoang Castellanos APRN Primary Care Provider Encounter Details Date Type Department Care Team (Late st Contact Info) Description 04/02/2022 8:00 AM EDT Home Care Visit [facility] for Care [address] [place] [phone] Kimberly Austin, PERFORMANCE TEST CONSULTANT LT CITIZENSHIP TEACHER HOME VISIT Social History Tobacco Use [...] Care Plan Visit Details Visit Type -LTC CITIZENSHIP TEACHER Home Vis it Discipline -Home Health [...] Completed documented in this encounter Care Teams Larder Cook Relationship Specialty Start Date End Date Hoang Castellanos, ENVIRONMENTAL CHANGE ANALYST [address] [place] [address] PCP - General Family Medicine 03/12/20 documented as of this encounter
--- OUTSIDE RECORDS SUMMARY | 2024-08-15 13:28 | XMS_ITS | Encounter Summary ---
Author Organization [facility] [place] [address] Care Team Providers Care Professor Of Biblical Studies Name Role Phone Hoang Castellanos APRN Primary Care Provider Encounter Details Date Type Department Care Team (Latest Contact Info) Description 03/31/2022 9:15 AM EDT Laboratory Appointment Laboratory at [place] [address] S/P gastric bypass; Disorder of [...] MD HEMATOLOGY ORDERABLE S Performing Organization Address City/[facility]/ZIP Co de Phone Number LABORATORY [address] [place] [address] * (ABNORMAL) Hemoglobin A1c (03/31/2022 9:29 AM EDT) Hemoglobin A1c 6.0(H) 4.3 - 5.6 % LABORATORY Estimated Average Glucose 126 mg/dL LABORATORY Blood 03/31/2022 9:29 AM EDT 03/31/2022 11:41 AM EDT Narrative Resulting Agency Comment Spec In Lab Hoang Castellanos APRN CHEMISTRY ORDERABLES LABORATORY [address] [place] [address] * Vitamin D, 25-Hydroxy (03/31/2022 9:29 AM EDT) Vitamin D Total 25 OH 54 21 - 100 ng/mL [facility] Vit D Interp Sufficient [facility] Blood 03/31/2022 9:29 AM EDT 03/31/2022 5:10 PM EDT Narrative Resulting Agency Comment Spec In Lab Hoang Castellanos APRN CHEMISTRY ORDERABLES [facility] [place] [address] * (ABNORMAL) CMP w/fasting Glucose (03/31/2022 9:29 AM EDT) Glucose Fasting 99 65 - 99 mg/dL [facility] Comment: ?Fasting* Glucose Interpretive Criteria [...] of Diabetes Mellitus, Position Statement from the [place] Diabetes Association. ??Diabetes Care, Volume 33, Supplement 1, Jul 2009 Blood Urea Nitrogen 18 8 - 18 mg/dL [facility] Creatinine 0.72 0.70 - 1.20 mg/dL [facility] Sodium 143 135 - 145 mmol/L [facility] Potassium 4.2 3.5 - 5.0 mmol/L [facility] [...] Mejia MD CHEMISTRY ORDERABLES LABORATORY [address] [place] [address] * Lipid Panel (Reflex Direct LDL) (03/31/2022 9:29 AM EDT) Pathologist [facility] Cholesterol, Total 103 mg/dL [facility] Comment: Lower Risk: <200 mg/dL Average Risk: 200-239 mg/dL Higher Risk: >ax=386 mg/dL Triglyceride 111 mg/dL [facility] Comment: Average Risk/Lower Risk: <150 mg/dL Borderline High Risk: 150-199 mg/dL High Risk: 200-499 mg/dL Very High Risk: >ln=126 mg/dL HDL Cholesterol 47 mg/dL [facility] Comment: Males: ?? Higher Risk: <40 mg/dL Females: ?? Higher Risk: <50 mg/dL LDL Cholesterol 34 mg/dL LABORATORY Comment: Lowest Risk: <100 mg/dL Lower Risk: 100-129 mg/dL Borderline High Risk: 130-159 mg/dL High Risk: 160-189 mg/dL Very High Risk: >zl=750 mg/dL Cholesterol/HDL Ratio 2.2 ratio [facility] Lipid Interpretation See Note [facility] Comment: Lipid management should be guided by a patient? s ASCVD risk, goals and preferences. ACC/AHA Guidelines recommend high intensity statin if clinical ASCVD or LDL greater than or equal to 190 mg/dL. http://[employer].com/FDG-MHZ-Saumpryhu Adults aged 40-75 with LDL 70-189 mg/dL should have their 10 year ASCVD risk estimated with the ACC/AHA ASCVD risk senior estimator http://tools.acc.org/BMQWB-Sdfn-Qmleeleuc/ Statin should be discussed if risk greater [...] MD CHEMISTRY ORDERABLES [facility] [address] [place] [address] * TSH (03/31/2022 9:29 AM EDT) Thyroid Stimulating Hormone 2.42 0.27 - 4.20 mcIU/mL [facility] Comment: Reference Interval (mcIU/mL): Females: ??First Trimester: 0.23-3.88 ??Second Trimester: 0.22-3.90 ??Third Trimester: 0.44-4.66 Blood 03/31/2022 9:29 AM EDT 03/31/2022 11:41 AM EDT Narrative Resulting Agency Comment Spec In Lab Sophie Mejia MD CHEMISTRY ORDERABLES Performing Organization Address [facility] de Phone Number [facility] [address] [place] [address] * (ABNORMAL) Ferritin (03/31/2022 9:29 AM EDT) [facility] Ferritin 17(L) 30 - 400 ng/mL [facility] Comment: Pediatric reference ranges not verified at [facility] interpret with caution. Reference ranges for females greater than 50 years of age approach values for men, i.e., 30-400 ng/mL. Blood 03/31/2022 9:29 AM EDT 03/31/2022 11:41 AM EDT Narrative Resulting Agency Comment Spec In Lab Priya Charles APRN CHEMISTRY ORDERA BLES Performing Organization Address [facility] de Phone Number [facility] [address] [place] [address] * Folate, serum (03/31/2022 9:29 AM EDT) [facility] Folate 7.5 4.8 - 24.2 ng/mL [facility] Blood 03/31/2022 9:29 AM EDT 03/31/2022 5:10 PM EDT Narrative Resulting Agency Comment Spec In Lab Priya Charles APRN CHEMISTRY ORDERA BLES [facility] [address] [place] [address] * (ABNORMAL) Hemogram (03/31/2022 9:29 AM EDT) [...] Agency Comment Spec In Lab Priya Charles WIRELESS COMMUNICATIONS ENGINEER HEMATOLOGY ORDER [facility] [address] [place] [address] * (ABNORMAL) Iron and TIBC (03/31/2022 9:29 AM EDT) Iron 40 30 - 150 mcg/dL LAB[facility]ORY TIBC 381 250 - 450 mcg/dL [facility] Iron Saturation 10(L) 20 - 50 % [facility] Blood 03/31/2022 9:29 AM EDT 03/31/2022 11:41 AM EDT Narrative Resulting Agency Comment Spec In Lab Priya Charles APRN CHEMISTRY ORDERA BLES Performing Organization Address City/[facility]/ZIP Co de Phone Number LABORATORY [address] [place] [address] * PTH (03/31/2022 9:29 AM EDT) Parathyroid Hormone 52 15 - 65 pg/mL [facility] Blood 03/31/2022 9:29 AM EDT 03/31/2022 4:41 PM EDT Narrative Resulting Agency Comment Spec In Lab Priya Charles APRN CHEMISTRY ORDERA BLES Performing Organization Address [facility] Co de Phone Number [facility] [place] [address] * Vitamin B12 (03/31/2022 9:29 AM EDT) Vitamin B12 690 232 - 1,245 pg/mL [facility] Blood 03/31/2022 9:29 AM EDT 03/31/2022 5:10 PM EDT Narrative Resulting Agency Comment Spec In Lab Priya Charles APRN CHEMISTRY ORDERA BLES Performing Organization Address [facility] Co de Phone Number [facility] [place] [address] * Vitamin B1, whole blood (03/31/2022 9:29 AM EDT) Vit B1 Lvl Wb (NOVEMBER) 150 70 - 180 nmol/L LABORATORY Comment: ADDITIONAL INFORMATION This test was developed and its performance characteristics determined by [facility] in a manner consistent with CLIA requirements. This test has not been cleared or approved by the U.S. Food and Drug Administration. Test Performed by: [facility] [address] [place] [address] Permit Agent: Skinny Reyes M.D. Ph.D.; CLIA# [id number] Blood 03/31/2022 9:29 AM EDT 03/31/2022 4:59 PM EDT Narrative Resulting Agency Comment Spec In Lab Priya Charles APRN LAB SEND OUT ORD ERABLES [facility] [address] [place] [address] documented in this encounter Visit Diagnoses Diagnosis [...] disorders documented in this encounter Care Teams Professor Of Biblical Studies Relationship Specialty Start Date End Date Hoang Castellanos APRN [address] [place] [address] PCP - General Family Medicine 03/12/20 documented as of this encounter
--- OUTSIDE RECORDS SUMMARY | 2024-08-15 13:28 | XMS_ITS | Encounter Summary ---
Author Organization [facility] [place] [address] Care Team Providers Care Loom Tuner Name Role Phone Hoang Castellanos APRN Primary Care Provider Encounter Details Date Type Department Care Team (Late st Contact Info) Description 04/20/2022 8:15 AM EDT Home Care Visit [facility] Care [address] [place] [phone] Kimberly Austin, AUTOMATION TECHNICIAN LT BENEFITS SALES CONSULTANT HOME VISIT Social History Tobacco Use [...] Care Plan Visit Details Visit Type -LTC BENEFITS SALES CONSULTANT Home Vis it Discipline -Home Health Aide Problems Problem Description Start Date Status Goals Interve ntions A Required Screenings Disciplines: [facility] 03/25/2022 Active 1 goal linked to scheduled/documente d intervention 1 goal intervention scheduled/documente d in this visit Other Disciplines: [facility] 03/25/2022 Active 1 goal linked to scheduled/documente d intervention 1 goal intervention scheduled/documente d in this visit House Keeping Disciplines: [facility] 03/25/2022 Active 1 goal linked to scheduled/documente d intervention 9 goal interventions scheduled/documente d in this visit Personal Care Disciplines: [facility] 03/25/2022 Active 1 goal linked to [...] clean-up of patient's environment as directed Completed [facility] KITCHEN AREA Description: Straighten kitchen area [...] refused documented in this encounter Care Teams Loom Tuner Relationship Specialty Start Date End Date Hoang Castellanos, DIRECTOR WEIGHTS AND MEASURES [address] [place] [address] PCP - General Family Medicine 03/12/20 documented as of this encounter
--- OUTSIDE RECORDS SUMMARY | 2024-08-15 13:28 | XMS_ITS | Encounter Summary ---
Author Organization [facility] Address [facility] [place] [address] Care Team Providers Care Supercalender Operator Helper Name Role Phone Hoang Castellanos APRN Primary Care Provider Encounter Details Date Type Department Care Team (Late st Contact Info) Description 03/26/2022 Home Care Visit [facility] for Care [address] [place] [phone] Kimberly Austin, [facility] MATERIAL ENGINEER HOME VISIT Social History Tobacco Use [...] Care Plan Visit Details Visit Type -LTC MATERIAL ENGINEER Home Vis it Discipline -Home Health Aide Problems Problem Description Start Date Status Goals Interve ntions A Required Screenings Disciplines: [facility] 03/25/2022 Active 1 goal linked to scheduled/documente d intervention 1 goal intervention scheduled/documente d in this visit Other Disciplines: [facility] 03/25/2022 Active 1 goal linked to scheduled/documente d intervention 1 goal intervention scheduled/documente d in this visit House Keeping Disciplines: [facility] 03/25/2022 Active 1 goal linked to scheduled/documente d intervention 9 goal interventions scheduled/documente d in this visit Personal Care Disciplines: [facility] 03/25/2022 Active 1 goal linked [...] refused documented in this encounter Care Teams Supercalender Operator Helper Relationship Specialty Start Date End Date Hoang Castellanos, LEAD HANDLER [address] [place] [address] PCP - General Family Medicine 03/12/20 documented as of this encounter
--- OUTSIDE RECORDS SUMMARY | 2024-08-15 13:28 | XMS_ITS | Encounter Summary ---
Author Organization [facility] Address [facility] [place] [address] Care Team Providers Care Envelope Addresser Name Role Phone Hoang Castellanos APRN Primary Care Provider Encounter Details Date Type Department Care Team (Late st Contact Info) Description 04/07/2022 12:00 PM EDT Home Care Visit [facility] for Care [address] [place] [phone] Kimberly Austin, OBSTETRICS TECH LT INSURANCE PLAN SPECIALIST HOME VISIT Social History Tobacco Use [...] Care Plan Visit Details Visit Type -LTC INSURANCE PLAN SPECIALIST Home Vis it Discipline -Home Health Aide Problems Problem Description Start Date Status Goals Interve ntions A Required Screenings Disciplines: [facility] 03/25/2022 Active 1 goal linked to scheduled/documente d intervention 1 goal intervention scheduled/documente d in this visit Other Disciplines: [facility] 03/25/2022 Active 1 goal linked to scheduled/documente d intervention 1 goal intervention scheduled/documente d in this visit House Keeping Disciplines: [facility] 03/25/2022 Active 1 goal linked to scheduled/documente d intervention 9 goal interventions scheduled/documente d in this visit Personal Care Disciplines: [facility] 03/25/2022 Active 1 goal linked to [...] refused documented in this encounter Care Teams Envelope Addresser Relationship Specialty Start Date End Date Hoang Castellanos, HEALTH PROGRAM MANAGER [address] [place] [address] PCP - General Family Medicine 03/12/20 documented as of this encounter
--- OUTSIDE RECORDS SUMMARY | 2024-08-15 13:28 | XMS_ITS | Encounter Summary ---
Author Organization [facility] Address [facility] [place] [address] Care Team Providers Care Maintenance Millwright Name Role Phone Hoang Castellanos APRN Primary Care Provider [phone] Encounter Details Date Type Department Care Team (Late st Contact Info) Description 04/16/2022 8:00 AM EDT [facility] [address] [place] [phone] Kimberly Austin, SOIL CHECKER LT HABITAT MANAGEMENT COORDINATOR HOME VISIT Social History Tobacco Use Types [...] Care Plan Visit Details Visit Type -LTC HABITAT MANAGEMENT COORDINATOR Home Vis it Discipline -Home Health Aide [...] [facility] KITCHEN AREA Description: [facility] kitchen area Problem:House Keeping Goal:Aide [...] documented in this encounter Care Teams Maintenance Millwright Relationship Specialty Start Date End Date Hoang Castellanos, JET ENGINE MECHANIC [address] [place] [address] PCP - General Family Medicine 03/12/20 documented as of this encounter
--- OUTSIDE RECORDS SUMMARY | 2024-08-15 13:28 | XMS_ITS | Encounter Summary ---
Author Organization [facility] [place] [address] Care Team Providers Care Pens And Pencils Repairer Name Role Phone Hoang Castellanos APRN Primary Care Provider [phone] Reason for Visit * Reason Comments Medication Refill Encounter Details Date Type Department Care Team (Late st Contact Info) Description 04/12/2022 Refill Primary Care at [facility] [address] [place] [address] Hoang Castellanos APRN [address] [place] [address] Social History Tobacco Use Types Packs/Day Years [...] PM EDT Last Prescription Fill Date: 12/01/2021- [employer] CIRQY Number Dispensed and Refills: 1 puff Last [...] on filedocumented in this encounter Care Teams Pens And Pencils Repairer Relationship Specialty Start Date End Date Hoang Castellanos APRN [address] [place] [address] PCP - General Family Medicine 03/12/20 documented as of this encounter
--- OUTSIDE RECORDS SUMMARY | 2024-08-15 13:28 | XMS_ITS | Encounter Summary ---
Author Organization [facility] Address [facility] [place] [address] Care Team Providers Care Ops Manager Name Role Phone Hoang Castellanos APRN Primary Care Provider Encounter Details Date Type Department Care Team (Late st Contact Info) Description 01/20/2022 10:00 AM EDT Home Care Visit [facility] [address] [place] [phone] Meena Greenwood LPN SN HOME VISIT [...] Visit Type -SN Home Visit Discipline -Senior Care Problems Problem Description Start Date Status Goals Interventions Learning/Teaching Needs - Inhalation Treatments Disciplines: DONALD BARRERA Lack of knowledge in how to administer inhalant treatments and how to care for the equipment. 11/26/2021 Resolved on 01/20/2022 1 goal linked to scheduled/docume nted intervention Supervisory Visit Disciplines: DONALD BARRERA Supervision of the CUSTOMER RELATIONS CONSULTANT. 11/26/2021 Resolved on 01/20/2022 1 goal linked [...] Completed documented in this encounter Care Teams Ops Manager Relationship Specialty Start Date End Date Hoang Castellanos, CELEBRITY MANAGER [address] [place] [address] PCP - General Family Medicine 03/12/20 documented as of this encounter
--- OUTSIDE RECORDS SUMMARY | 2024-08-15 13:28 | XMS_ITS | Encounter Summary ---
Author Organization [facility] Address [facility] [place] [address] Care Team Providers Care Territory Business Manager Name Role Phone Hoang Castellanos APRN Primary Care Provider [phone] Encounter Details Date Type Department Care Team (Latest Contact Info) Description 01/18/2022 12:30 PM EDT Home Care Visit [facility] [address] [place] [phone] Renetta Ta, OT OT DISCIPLINE DISCHARGE [...] TO OT DC VIST TODAY WITH HER [facility] CAREGIVER, BRITTA, AND HER SPOUSE. SHE IS [...] ADL AND SHE WILL CONTINUE TO HAVE [facility] CARE SUPPORTS NEEDED. PT IS AGREEABLE WITH OT POC. * Home Health - Renetta Ta OT - 01/18/2022 1:20 PM EDT PT PRESENTS TO OT DC VIST TODAY WITH HER [employer] ORGANIZER CAREGIVER, BRITTA, AND HER SPOUSE. SHE IS [...] ADL AND SHE WILL CONTINUE TO HAVE [employer] ORGANIZER CARE SUPPORTS NEEDED. PT IS AGREEABLE WITH [...] education documented in this encounter Care Teams Territory Business Manager Relationship Specialty Start Date End Date Hoang Castellanos APRN [address] [facility] [address] PCP - General Family Medicine 03/12/20 documented as of this encounter
--- OUTSIDE RECORDS SUMMARY | 2024-08-15 13:28 | XMS_ITS | Encounter Summary ---
Author Organization [facility] Address [facility] [place] [address] Care Team Providers Care Fishery Division Chief Name Role Phone Hoang Castellanos APRN Primary Care Provider Encounter Details Date Type Department Care Team (Late st Contact Info) Description 01/21/2022 [place] [phone] Freddy Dolan PA [facility] [place] [address] Social History Tobacco Use Types Packs/Day Years [...] DPS for 05/20 appts Sent pt a [employer] message with appt details. Jeannie Rico - 01/21/22 Freddy Dolan PA Sent: Carlota January 21, 2022 ??9:40 AM To: [facility] Gang Plank Workman ?? Follow-up and Dispositions Check-out Note: FU 4 months w/ XR c-spine documented in this encounter Plan of Treatment Not on file documented as of this encounter Visit Diagnoses Not on filedocumented in this encounter Care Teams Fishery Division Chief Relationship Specialty Start Date End Date Hoang Castellanos APRN [address] [place] [address] PCP - General Family Medicine 03/12/20 documented as of this encounter
--- OUTSIDE RECORDS SUMMARY | 2024-08-15 13:28 | XMS_ITS | Encounter Summary ---
Author Organization [facility] Address [facility] [place] [address] Care Team Providers Care Dedicated Truck Driver Name Role Phone Hoang aCstellanos APRN Primary Care Provider Reason for Referral * [facility] Care (Routine) - Closed Specialty Diagnoses / Procedures Referred By Contdavide t Referred To Contact Home Health Services Diagnoses Age-related physical debility R54 Visiting [facility], [facility] [address] [address] [facility] Choices For Care [address] [place] [phone] Referral ID Status Reason Start Date Expiration Date V isits Requested Visits Authorized [id number] Closed Consult, Test & Treat 02/08/2022 02/08/[phone] Encounter Details Date Type Department Care Team (Late st Contact Info) Description 02/08/2022 Transcribe Orders eD Incoming Referrals [phone] Visiting [facility] [address] [address] Social History Tobacco Use Types Packs/Day Years [...] Diagnoses Orde r Schedule Amb Referral to [facility] Care Outpatient Referral Routine Ordered: 02/08/2022 documented as of this encounter Visit Diagnoses Not on filedocumented in this encounter Care Teams Dedicated Truck Driver Relationship Specialty Start Date End Date Hoang Castellanos, SUPERVISOR BOILER REPAIR [address] [place] [address] PCP - General Family Medicine 03/12/20 documented as of this encounter
--- OUTSIDE RECORDS SUMMARY | 2024-08-15 13:28 | XMS_ITS | Encounter Summary ---
Author Organization [place] [address] Care Team Providers Care Dowel Inserting Machine Operator Name Role Phone Hoang Castellanos APRN Primary Care Provider Reason for Referral * Surgical (Routine) - Closed Specialty Diagnoses / Procedures Referred By Vanita dimas Referred To Contact Gastroenterology Diagnoses Colon cancer screening screen Procedures PRO COLONOSCOPY, DIAGNOSTIC PRO ANESTH, LWR INTESTINE, SCREENING COLONOSCOPY colo Hoang Castellanos APRN [address] [place] [address] [facility] Endoscopy [address] [place] [address] Referral ID Status Reason Start Date Expiration Date V isits Requested Visits Authorized [id number] Closed Test Only 03/23/2022 03/23/2023 6 6 * Consultation (Routine) - Specialty Diagnoses / Procedures Referred By Vanita dimas Referred To Contact Ophthalmology Diagnoses Cataract of right eye, unspecified cataract type Hoang Castellanos APRN [address] [place] [address] Ruby Calderon, OD [facility] [place] [address] Referral ID Status Reason Start Date Expiration Date V isits Requested Visits Authorized [id number] Consult, Test & Treat 03/23/2022 03/23/2023 6 6 Encounter Details Date Type Department Care Team (Late st Contact Info) Description 03/23/2022 9:00 AM EDT Office Visit Primary Care at [address] [place] [address] Hoang Castellanos, JEWELLERY DESIGNER [address] [place] [address] Annual physical exam; Depression, unspecified depression type; [...] this encounter Progress Notes * Hoang Castellanos, JEWELLERY DESIGNER - 03/23/2022 9:00 AM EDT Subjective: HPI: Jeannie Rico is a 61 y.o. female presenting to the [facility] Primary Care Clinic for an annual chronicdisease review. 1. Depression, unspecified depression type A lot of anxiety and depression She has an appt w Psychiatry on 04/01 Tried viibryd/trintellix/abilify but did not tolerate d/t side effects States she should not be taking Vraylar 2. Cataract of right eye, unspecified cataract type Referral to Ophthalmology at [facility] Evaluated by Jasmeet Garcia at [facility] [...] -- [phone] No results for input(s): [id number], SFOLATE, WAGB2PD, VITAMINB6, 25OHVITD, NPKT16JP, VITAMIND, VITAMINA, VITAMINE, IRON, TRANSFERRIN, IRONSAT, FERRITIN [...] daily. ??? Miconazole Powder 1 Application by [facility].(Non-Drug; [...] daily as needed. ??? Miscellaneous Medical Supply [facility] [...] Hypothyroidism, acquired ??? Osteopor[facility] [...] performed by Campos Puente MD at [facility] MAIN OR ??? PRO DUDLEY W/O FACETEC FORAMOT/DSKC 07/26 VRT SEG, CERVICAL N/A 10/30/2021 LAMINECTOMY, CX W/EXPLOR , W/O FACETECTOMY, 1 OR 2 SEGMENTS (WRVU 17.61) performed by Campos Puente MD at [facility] MAIN OR ??? PRO POSTERIOR SEGMENTAL INSTRUMENTATION 3-6 VRT SEG N/A 10/30/2021 POST SPINAL INSTRUMENTATION, 3-6 VERTEBRA, NON SEGMENTAL (WRVU 12.56) performed by Campos Puente MD at [facility] MAIN OR ??? PRO UPPER GI ENDOSCOPY, BIOPSY N/A 12/03/2015 EGD WITH BIOPSY performed by Ken Sanders MD at [facility] ENDOSCOPY ??? PRO UPPER GI ENDOSCOPY, BIOPSY N/A 09/19/2018 UPPER GASTROINTESTINAL ENDOSCOPY,WITH BIOPSY SINGLE OR MULTIPLE (WRVU 2.49) performed by Tyron Mercado MD at [facility] ENDOSCOPY ??? TONSILLECTOMY ??? UPPER GI ENDOSCOPY, EXAM 12/04/2010 UPPER GI ENDOSCOPY performed by DEE WRIGHT at [facility] ENDOSCOPY Family History Problem (# of [...] canal normal. Nose: Nose normal. Mouth/Throat: Lips: [place]. Mouth: Mucous membranes are moist. Pharynx: Oropharynx [...] COLONOSCOPY PROCEDURE Depression/PTSD managed by psychiatry at [facility]. Encouraged her to bring med list [...] 25 OH 54 21 - 100 ng/mL [facility] Vit D Interp Sufficient [facility] Blood 03/31/2022 9:29 AM EDT 03/31/2022 5:10 PM EDT Narrative Resulting Agency Comment Spec In Lab Hoang Castellanos APRN CHEMISTRY ORDERABLES [facility] [place] [address] * (ABNORMAL) Hemoglobin A1c (03/31/2022 9:29 AM EDT) Hemoglobin A1c 6.0(H) 4.3 - 5.6 % [facility] Estimated Average Glucose 126 mg/dL [facility] Blood 03/31/2022 9:29 AM EDT 03/31/2022 11:41 AM EDT Narrative Resulting Agency Comment Spec In Lab Hoang Castellanos APRN CHEMISTRY ORDERABLES Performing Organization Address City/[facility]/ZIP Co de Phone Number [facility] [address] [place] [address] * Ear wax removal (03/23/2022) Narrative Heena [...] colon documented in this encounter Care Teams Dowel Inserting Machine Operator Relationship Specialty Start Date End Date Hoang Castellanos APRN [address] [place] [address] PCP - General Family Medicine 03/12/20 documented as of this encounter
--- OUTSIDE RECORDS SUMMARY | 2024-08-15 13:28 | XMS_ITS | Encounter Summary ---
Author Organization [facility] [place] [address] Care Team Providers Care Transportation Clerk Name Role Phone Hoang Castellanos APRN Primary Care Provider Reason for Visit * Reason Comments Medication Refill Encounter Details Date Type Department Care Team (Late st Contact Info) Description 03/18/2022 Refill Primary Care at [facility] [address] [facility] [place] [address] Hoang Castellanos APRN [address] [facility] [place] [address] Cervicalgia; Asthma with acute exacerbation, unspecified asthma [...] persistent documented in this encounter Care Teams Transportation Clerk Relationship Specialty Start Date End Date Hoang Castellanos, MULE DRIVER [address] [place] [address] PCP - General Family Medicine 03/12/20 documented as of this encounter
--- OUTSIDE RECORDS SUMMARY | 2024-08-15 13:28 | XMS_ITS | Encounter Summary ---
Author Organization [facility] Address [facility] [place] [address] Care Team Providers Care Director Supply Chain Name Role Phone Hoang Castellanos APRN Primary Care Provider Encounter Details Date Type Department Care Team (Late st Contact Info) Description 03/30/2022 8:00 AM EDT Home Care Visit [facility] for Care [address] [place] [phone] Kimberly Austin, EQUIPMENT SERVICE ASSOCIATE LT CHROME PLATER HOME VISIT Social History Tobacco Use Types [...] Care Plan Visit Details Visit Type -LTC CHROME PLATER Home Vis it Discipline -Home Health Aide Problems Problem Description Start Date Status Goals Interve ntions A Required Screenings Disciplines: [facility] 03/25/2022 Active 1 goal linked to scheduled/documente d intervention 1 goal intervention scheduled/documente d in this visit Other Disciplines: [facility] 03/25/2022 Active 1 goal linked to scheduled/documente d intervention 1 goal intervention scheduled/documente d in this visit House Keeping Disciplines: [facility] 03/25/2022 Active 1 goal linked to scheduled/documente d intervention 9 goal interventions scheduled/documente d in this visit Personal Care Disciplines: [facility] 03/25/2022 Active 1 goal [...] documented in this encounter Care Teams Director Supply Chain Relationship Specialty Start Date End Date Hoang Castellanos APRN [address] [place] [address] PCP - General Family Medicine 03/12/20 documented as of this encounter
--- OUTSIDE RECORDS SUMMARY | 2024-08-15 13:28 | XMS_ITS | Encounter Summary ---
Author Organization [facility] Address [place] [address] Care Team Providers Care Insolvency Practitioner Name Role Phone Hoang Castellanos APRN Primary Care Provider [phone] Encounter Details Date Type Department Care Team (Late st Contact Info) Description 04/15/2022 12:00 PM EDT Home Care Visit [facility] for Care [address] [place] [phone] Kimberly Austin, HARNESS MENDER LT LOGISTICS ASSISTANT HOME VISIT Social History Tobacco Use Types [...] Care Plan Visit Details Visit Type -LTC LOGISTICS ASSISTANT Home Vis it Discipline -Home Health Aide Problems Problem Description Start Date Status Goals Interve ntions A Required Screenings Disciplines: [facility] 03/25/2022 Active 1 goal linked to scheduled/documente d intervention 1 goal intervention scheduled/documente d in this visit Other Disciplines: [facility] 03/25/2022 Active 1 goal linked to scheduled/documente d intervention 1 goal intervention scheduled/documente d in this visit House Keeping Disciplines: [facility] 03/25/2022 Active 1 goal linked to scheduled/documente d intervention 9 goal interventions scheduled/documente d in this visit Personal Care Disciplines: [facility] 03/25/2022 Active 1 goal linked [...] refused documented in this encounter Care Teams Insolvency Practitioner Relationship Specialty Start Date End Date Hoang Castellanos, HEART COORDINATOR [address] [place] [address] PCP - General Family Medicine 03/12/20 documented as of this encounter
--- OUTSIDE RECORDS SUMMARY | 2024-08-15 13:28 | XMS_ITS | Encounter Summary ---
Author Organization [facility] Address [facility] [place] [address] Care Team Providers Care Resident Care Assistant Name Role Phone Hoang Castellanos APRN Primary Care Provider Encounter Details Date Type Department Care Team (Late st Contact Info) Description 04/09/2022 12:00 PM EDT Home Care Visit [facility] for Care [address] [place] [phone] Kimberly Austin, LAB RN LT LEAFLET OR NEWSPAPER DELIVERER HOME VISIT Social History Tobacco Use Types [...] Care Plan Visit Details Visit Type -LTC LEAFLET OR NEWSPAPER DELIVERER Home Vis it Discipline -Home Health Aide Problems Problem Description Start Date Status Goals Interve ntions A Required Screenings Disciplines: [facility] 03/25/2022 Active 1 goal linked to scheduled/documente d intervention 1 goal intervention scheduled/documente d in this visit Other Disciplines: [facility] 03/25/2022 Active 1 goal linked to scheduled/documente d intervention 1 goal intervention scheduled/documente d in this visit House Keeping Disciplines: [facility] 03/25/2022 Active 1 goal linked to scheduled/documente d intervention 9 goal interventions scheduled/documente d in this visit Personal Care Disciplines: [facility] 03/25/2022 Active 1 goal linked [...] refused documented in this encounter Care Teams Resident Care Assistant Relationship Specialty Start Date End Date Hoang Castellanos, PACKAGING SALES REPRESENTATIVE [address] [place] [address] PCP - General Family Medicine 03/12/20 documented as of this encounter
--- OUTSIDE RECORDS SUMMARY | 2024-08-15 13:28 | XMS_ITS | Encounter Summary ---
Author Organization [facility] Address [facility] [place] [address] Care Team Providers Care Dog Catcher Name Role Phone Hoang Castellanos APRN Primary Care Provider [phone] Encounter Details Date Type Department Care Team (Late st Contact Info) Description 04/12/2022 1:00 PM EDT Home Care Visit [facility] for Care [address] [place] [phone] Kimberly Austin, DIORAMA MODEL MAKER LT SELENIUM PLANT OPERATOR HOME VISIT Social History Tobacco Use [...] Care Plan Visit Details Visit Type -LTC SELENIUM PLANT OPERATOR Home Vis it Discipline -Home Health [...] refused documented in this encounter Care Teams Dog Catcher Relationship Specialty Start Date End Date Hoang Castellanos, FOOT PIECE ASSEMBLER [address] [place] [address] PCP - General Family Medicine 03/12/20 documented as of this encounter
--- OUTSIDE RECORDS SUMMARY | 2024-08-15 13:28 | XMS_ITS | Encounter Summary ---
Author Organization [facility] Address [facility] [place] [address] Care Team Providers Care Combination Machine Tender Name Role Phone Hoang Castellanos APRN Primary Care Provider Encounter Details Date Type Department Care Team (Late st Contact Info) Description 04/01/2022 8:00 AM EDT Home [facility] Visit [facility] [address] [place] [phone] Kimberly Austin, DIRECTOR IMMUNOLOGY LT GEOMETRY TEACHER HOME VISIT Social History Tobacco Use [...] Care Plan Visit Details Visit Type -LTC GEOMETRY TEACHER Home Vis it Discipline -Home Health Aide Problems Problem Description Start Date Status Goals Interve ntions A Required Screenings Disciplines: [facility] 03/25/2022 Active 1 goal linked to scheduled/documente d intervention 1 goal intervention scheduled/documente d in this visit Other Disciplines: [facility] 03/25/2022 Active 1 goal linked to scheduled/documente d intervention 1 goal intervention scheduled/documente d in this visit House Keeping Disciplines: [facility] 03/25/2022 Active 1 goal linked to scheduled/documente d intervention 9 goal interventions scheduled/documente d in this visit Personal Care Disciplines: [facility] 03/25/2022 Active 1 goal linked to [...] refused documented in this encounter Care Teams Combination Machine Tender Relationship Specialty Start Date End Date Hoang Castellanos, AUTOMATIC TIRE TESTER [address] [place] [address] PCP - General Family Medicine 03/12/20 documented as of this encounter
--- OUTSIDE RECORDS SUMMARY | 2024-08-15 13:28 | XMS_ITS | Encounter Summary ---
Author Organization [facility] Address [facility] [place] [address] Care Team Providers Care Support Representative Name Role Phone Hoang Castellanos APRN Primary Care Provider [phone] Encounter Details Date Type Department Care Team (Late st Contact Info) Description 03/25/2022 Home Care Visit [facility] Choices for Care [address] [place] [phone] Kimberly Austin, [facility] HOUSE CARPENTER HOME VISIT Social History Tobacco Use Types [...] Care Plan Visit Details Visit Type -LTC HOUSE CARPENTER Home Vis it Discipline -Home Health Aide [...] Completed documented in this encounter Care Teams Support Representative Relationship Specialty Start Date End Date Hoang Castellanos, MAJOR ASSEMBLER [address] [place] [address] PCP - General Family Medicine 03/12/20 documented as of this encounter
--- OUTSIDE RECORDS SUMMARY | 2024-08-15 13:28 | XMS_ITS | Encounter Summary ---
Author Organization [facility] Address [facility] [place] [address] Care Team Providers Care Memory Care Program Resident Name Role Phone Hoang Castellanos APRN Primary Care Provider Encounter Details Date Type Department Care Team (Latest Contact Info) Description 01/21/2022 7:52 AM EDT - 01/21/2022 11:59 PM EDT Hospital Encounter XRay at [facility] [address] [facility] [place] [address] Cervical spinal stenosis Discharge Disposition: Home Social [...] Sustained Release 24 hrIndications:Coronary artery disease involving chippewa-cree coronary artery 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 28 tablet 11 01/18/2022 Miconazole PowderIndications:Derm al mycosis 1 Application by [facility].(Non-Drug; Combo Route) route 2 times daily. 100 g 3 01/14/2022 nitroGLYcerin (Nitrostat) 0.4 mg Tablet, SublingualIndications: Coronary artery disease involving chippewa-cree coronary artery of chippewa-cree heart without angina pectoris Place 1 tablet [...] questions please contact the health day care teacher that requested your imaging first. ? Electronically signed by: Naomi Ricci MD, [facility] ([phone]), at 01/21/2022 11:34 AM Narrative 01/21/2022 11:34 [...] cervical lateral mass screws and rods at [id number] for subtle differences in projection. No hardware [...] have questions please contactthe health day care teacher that requested your imaging first. Electronically signed by: Naomi Ricci MD, [facility]([phone]), at 01/21/2022 11:34 AM Campos Puente MD IMG DX ORDERABLES documented in this encounter Visit Diagnoses Diagnosis Cervical spinal stenosis Spinal stenosis in cervical region documented in this encounter Care Teams Memory Care Program Resident Relationship Specialty Start Date End Date Hoang Castellanos, ENGAGEMENT SPECIALIST [address] [place] [address] PCP - General Family Medicine 03/12/20 documented as of this encounter
--- OUTSIDE RECORDS SUMMARY | 2024-08-15 13:28 | XMS_ITS | Encounter Summary ---
Author Organization [facility] [place] [address] Care Team Providers Care Shoe Clerk Name Role Phone Hoang Castellanos APRN Primary Care Provider Reason for Referral * Physical Therapy (Routine) - Closed Specialty Diagnoses / Procedures Referred By Contac t Referred To Contact Diagnoses Cervical spinal stenosis Freddy Dolan PA [facility] [place] [address] Physical Therapy, [address] [address] Referral ID Status Reason Start Date Expiration Date V isits Requested Visits Authorized [id number] Closed Evaluate and Treat 01/21/2022 07/20/2022 12 12 Encounter Details Date Type Department Care Team (Late st Contact Info) Description 01/21/2022 9:00 AM EDT [place] [address] Freddy Dolan PA [facility] [place] [address] Cervical spinal stenosis; Cervicalgia Social History Tobacco [...] R compared to the L diffusely R crimper assembler is 4/5 and R HF is 4/5 [...] repeat x-rays Freddy Dolan PA-C, [place] Physician Entry Level Truck Driver Section of Neurosurgery [address] [address] documented in this encounter Plan of Treatment Scheduled Referrals Name Type Priority Associated Diagnoses Orde r Schedule Referral to Physical Therapy Outpatient Referral Routine Cervical spinal stenosis Ordered: 01/21/2022 documented as of this encounter Visit Diagnoses Diagnosis Cervical spinal stenosis Spinal stenosis in cervical region Cervicalgia documented in this encounter Care Teams Shoe Clerk Relationship Specialty Start Date End Date Hoang Castellanos, LANDSCAPER [address] [place] [address] PCP - General Family Medicine 03/12/20 documented as of this encounter
--- OUTSIDE RECORDS SUMMARY | 2024-08-15 13:28 | XMS_ITS | Encounter Summary ---
Author Organization [facility] Address [facility] [place] [address] Care Team Providers Care Window Clerk Name Role Phone Hoang Castellanos APRN Primary Care Provider Encounter Details Date Type Department Care Team (Late st Contact Info) Description 01/15/2022 9:00 AM EDT Home Care Visit [facility] [address] [place] [phone] Renetta Ta, OT OT HOME VISIT [...] education documented in this encounter Care Teams Window Clerk Relationship Specialty Start Date End Date Hoang Castellanos, AQUARIST [address] [place] [address] PCP - General Family Medicine 03/12/20 documented as of this encounter
--- OUTSIDE RECORDS SUMMARY | 2024-08-15 13:28 | XMS_ITS | Encounter Summary ---
Author Organization [facility] Address [facility] [place] [address] Care Team Providers Care Metallurgical Or Materials Technician Name Role Phone Hoang Castellanos APRN Primary Care Provider Reason for Referral * [facility] Care (Routine) - Closed Specialty Diagnoses / Procedures Referred By Contdavide t Referred To Contact Home Health Services Diagnoses Age-related physical debility Visiting Nurse, [facility] [address] [address] [facility] Choices For Care [address] [place] [phone] Referral ID Status Reason Start Date Expiration Date V isits Requested Visits Authorized [id number] Closed Consult, Test & Treat 03/03/2022 03/03/2023 999 999 Encounter Details Date Type Department Care Team (Late st Contact Info) Description 03/03/2022 Transcribe Orders eD Incoming Referrals [phone] Visiting Nurse, [facility] [address] [address] Age-related physical debility Social History Tobacco Use [...] Diagnoses Orde r Schedule Amb Referral to [facility] Salesperson Neckties Care Outpatient Referral Routine Age-related physical debility Ordered: 03/03/2022 documented as of this encounter Visit Diagnoses Diagnosis Age-related physical debility Senility without mention of psychosis documented in this encounter Care Teams Metallurgical Or Materials Technician Relationship Specialty Start Date End Date Hoang Castellanos, RESIDENT CARE MANAGER [address] [place] [address] PCP - General Family Medicine 03/12/20 documented as of this encounter
--- OUTSIDE RECORDS SUMMARY | 2024-08-15 13:28 | XMS_ITS | Encounter Summary ---
Author Organization [facility] Address [facility] [place] [address] Care Team Providers Care Cook Fruit Name Role Phone Hoang Castellanos APRN Primary Care Provider [phone] Encounter Details Date Type Department Care Team (Late st Contact Info) Description 04/13/2022 9:30 AM EDT Home Care Visit [facility] for Care [address] [place] [phone] Kimberly Austin, REMELT FURNACE EXPEDITER LT PLASTICS PLATER HOME VISIT Social History Tobacco Use [...] Care Plan Visit Details Visit Type -LTC PLASTICS PLATER Home Vis it Discipline -Home Health Aide Problems Problem Description Start Date Status Goals Interve ntions A Required Screenings Disciplines: [facility] 03/25/2022 Active 1 goal linked to scheduled/documente d intervention 1 goal intervention scheduled/documente d in this visit Other Disciplines: [facility] 03/25/2022 Active 1 goal linked to scheduled/documente d intervention 1 goal intervention scheduled/documente d in this visit House Keeping Disciplines: [facility] 03/25/2022 Active 1 goal linked to scheduled/documente d intervention 9 goal interventions scheduled/documente d in this visit Personal Care Disciplines: [facility] 03/25/2022 Active 1 goal linked to scheduled/documente [...] documented in this encounter Care Teams Cook Fruit Relationship Specialty Start Date End Date Hoang Castellanos, CHAINSTITCH PANTS OUTSEAMER [address] [place] [place] [address] PCP - General Family Medicine 03/12/20 documented as of this encounter
--- OUTSIDE RECORDS SUMMARY | 2024-08-15 13:28 | XMS_ITS | Encounter Summary ---
Author Organization [facility] Address [facility] [place] [address] Care Team Providers Care Laborer Tin Can Name Role Phone Hoang Castellanos APRN Primary Care Provider Encounter Details Date Type Department Care Team (Late st Contact Info) Description 01/21/2022 2:00 PM EDT Home Care Visit [facility] [address] [place] [phone] Fara Joel RN SN OASIS DISCHARGE [...] on filedocumented in this encounter Care Teams Laborer Tin Can Relationship Specialty Start Date End Date Hoang Castellanos APRN [address] [place] [address] PCP - General Family Medicine 03/12/20 documented as of this encounter
--- OUTSIDE RECORDS SUMMARY | 2024-08-15 13:28 | XMS_ITS | Encounter Summary ---
Author Organization [place] [address] Care Team Providers Care Welder Oxyhydrogen Name Role Phone Hoang Castellanos APRN Primary Care Provider Encounter Details Date Type Department Care Team (Latest Contact Info) Description 02/23/2022 Transcribe Orders Laboratory at [facility] [place] [id number] Sophie Mejia MD [address] [place] [phone] Encounter for long-term (current) use of other [...] ORDERABLES [facility] [address] [place] [address] * Lipid Panel (Reflex Direct LDL) (03/31/2022 9:29 AM EDT) Cholesterol, Total 103 mg/dL [facility] Comment: Lower Risk: <200 mg/dL Average Risk: 200-239 mg/dL Higher Risk: >at=214 mg/dL Triglyceride 111 mg/dL [facility] Comment: Average Risk/Lower Risk: <150 mg/dL Borderline High Risk: 150-199 mg/dL High Risk: 200-499 mg/dL Very High Risk: >si=416 mg/dL HDL Cholesterol 47 mg/dL [facility] Comment: Males: ?? Higher Risk: <40 mg/dL Females: ?? Higher Risk: <50 mg/dL LDL Cholesterol 34 mg/dL [facility] Comment: Lowest Risk: <100 mg/dL Lower Risk: 100-129 mg/dL Borderline High Risk: 130-159 mg/dL High Risk: 160-189 mg/dL Very High Risk: >cs=599 mg/dL Cholesterol/HDL Ratio 2.2 ratio [facility] Lipid Interpretation See Note [facility] Comment: Lipid management should be guided by a patient? s ASCVD risk, goals and preferences. ACC/AHA Guidelines recommend high intensity statin if clinical ASCVD or LDL greater than or equal to 190 mg/dL. [email or web address] [email or web address]-[email or web address] Adults aged 40-75 with LDL 70-189 mg/dL should have their 10 year ASCVD risk estimated with the ACC/AHA ASCVD risk upholstery estimator http://tools.acc.org/QAREE-Opyn-Guxdsuzkm/ Statin should be discussed if risk greater [...] Sophie Mejia MD CHEMISTRY ORDERABLES [facility] [address] [place] [address] * (ABNORMAL) CMP w/fasting Glucose (03/31/2022 9:29 AM EDT) Glucose Fasting 99 65 - 99 mg/dL [facility] Comment: ?Fasting* Glucose Interpretive Criteria Normal [...] of Diabetes Mellitus, Position Statement from the [place] [employer]. ??Diabetes Care, Volume 33, Supplement 1, Jul 2009 Blood Urea Nitrogen 18 8 - 18 mg/dL [facility] Creatinine 0.72 0.70 - 1.20 mg/dL [facility] Sodium 143 135 - 145 mmol/L [facility] Potassium 4.2 3.5 - 5.0 mmol/L [facility] Comment: Please note: ??Patients with WBC >100,000 may have falsely elevated Potassium levels. ??For accurate Potassium quantification in these patients send serum separator tube (gold top) for subsequent determinations. ??Contact the Clinical Chemistry Laboratory if there are any questions. Chloride 104 98 - 107 mmol/L [facility] Carbon Dioxide 28 22 - 31 mmol/L [facility] Anion Gap 11 5 - 15 mmol/L [facility] Calcium 9.7 8.5 - 10.5 mg/dL [facility] Protein, Total 6.9 6.1 - 8.0 [...] MD CHEMISTRY ORDERABLES [facility] [address] [place] [address] documented in this encounter Visit Diagnoses Diagnosis Encounter for long-term (current) use of other medications Explosive personality disorder documented in this encounter Care Teams Welder Oxyhydrogen Relationship Specialty Start Date End Date Hoang Castellanos, CAR WORKER [address] [address] PCP - General Family Medicine 03/12/20 documented as of this encounter
--- OUTSIDE RECORDS SUMMARY | 2024-08-15 13:28 | XMS_ITS | Encounter Summary ---
Author Organization [facility] [place] [address] Care Team Providers Care Maintenance Operator Name Role Phone Hoang Castellanos APRN Primary Care Provider Reason for Visit * Reason Comments Medication Refill Encounter Details Date Type Department Care Team (Late st Contact Info) Description 02/15/2022 Refill Primary Care at [facility] [address] [facility] [place] [address] Hoang Castellanos APRN [address] [place] [address] B12 deficiency Social History Tobacco Use Types [...] Notes * Telephone Encounter - Elayne Gomez, [facility] - 02/15/2022 1:45 PM EDT Requested [...] deficiencies documented in this encounter Care Teams Maintenance Operator Relationship Specialty Start Date End Date Hoang Castellanos, RETURN AGENT [address] [place] [address] PCP - General Family Medicine 03/12/20 documented as of this encounter
--- OUTSIDE RECORDS SUMMARY | 2024-08-15 13:29 | XMS_ITS | Encounter Summary ---
Author Organization [facility] Address [facility] [address] Care Team Providers Care Security Dispatcher Name Role Phone Hoang Castellanos APRN Primary Care Provider Encounter Details Date Type Department Care Team (Late st Contact Info) Description 12/30/2021 10:00 AM EDT [facility] [address] [place] [phone] Samira Gasca LNA [facility] HOME VISIT [...] Status Goals Interve ntions Personal Care Disciplines: INSULATION PROFESSIONAL Aide to assist patient with personal cares as directed. 11/26/2021 Active 1 goal linked to scheduled/documen leela intervention 6 goal interventions scheduled/document ed in this visit Activity Disciplines: INSULATION PROFESSIONAL Aide to assist patient activity tasks as [...] ordered Scheduled with variance N/A Transfers Description: INSULATION PROFESSIONAL assist with transfers using Tub chair with extension Problem:Activity Goal:Patient activity needs will be completed by aide as ordered Completed Assist with Ambulation Description: INSULATION PROFESSIONAL assist with ambulation using walker or wheelchair Problem:Activity Goal:Patient activity needs will be completed by aide as ordered Completed Assist Repositioning Description: Assist with repositioning patient. Problem:Activity Goal:Patient activity needs will be completed by aide as ordered Scheduled with variance N/A documented in this encounter Care Teams Security Dispatcher Relationship Specialty Start Date End Date Hoang Castellanos, ALIGNER TYPEWRITER [address] [place] [address] PCP - General Family Medicine 03/12/20 documented as of this encounter
--- OUTSIDE RECORDS SUMMARY | 2024-08-15 13:29 | XMS_ITS | Encounter Summary ---
Author Organization [facility] Address [facility] [address] Care Team Providers Care Warehouse Processor Name Role Phone Hoang Castellanos APRN Primary Care Provider Encounter Details Date Type Department Care Team (Late st Contact Info) Description 12/14/2021 1:00 PM EDT Home Care Visit [facility] [address] [place] [phone] Raj Nowak, PT PT HOME VISIT [...] training documented in this encounter Care Teams Warehouse Processor Relationship Specialty Start Date End Date Hoang Castellanos, BIOMEDICAL FIELD SERVICE ENGINEER [address] [place] [address] PCP - General Family Medicine 03/12/20 documented as of this encounter
--- OUTSIDE RECORDS SUMMARY | 2024-08-15 13:29 | XMS_ITS | Encounter Summary ---
Author Organization [facility] [place] [address] Care Team Providers Care Field Sales Trainer Name Role Phone Hoang Castellanos APRN Primary Care Provider Encounter Details Date Type Department Care Team (Late st Contact Info) Description 01/08/2022 Orders [place] [address] Priya Charles, SECOND MATE [facility] [place] [address] S/P gastric bypass; Disorder of iron metabolism; [...] developed and its performance characteristics determined by [facility] in a manner consistent with CLIA requirements. This test has not been cleared or approved by the U.S. Food and Drug Administration. Test Performed by: [facility] - [address] [address] [employer]: Skinny Reyes M.D. Ph.D.; CLIA# [id number] Blood 03/31/2022 9:29 AM EDT 03/31/2022 4:59 PM EDT Narrative Resulting Agency Comment Spec In Lab Priya Charles APRN LAB SEND OUT [facility]D [facility] [address] [place] [address] * Vitamin B12 (03/31/2022 9:29 AM EDT) Vitamin B12 690 232 - 1,245 pg/mL [facility] Blood 03/31/2022 9:29 AM EDT 03/31/2022 5:10 PM EDT Narrative Resulting Agency Comment Spec In Lab Priya Charles APRN CHEMISTRY ORDERA BLES Performing Organization Address City/[facility] Co de Phone Number [facility] [address] * PTH (03/31/2022 9:29 AM EDT) Parathyroid Hormone 52 15 - 65 pg/mL [facility] Blood 03/31/2022 9:29 AM EDT 03/31/2022 4:41 PM EDT Narrative Resulting Agency Comment Spec In Lab Priya Charles APRN CHEMISTRY ORDERA BLES Performing Organization Address [facility] Co de Phone Number [facility] [place] [address] * (ABNORMAL) Iron and TIBC (03/31/2022 9:29 AM EDT) Iron 40 30 - 150 mcg/dL [facility] TIBC 381 250 - 450 mcg/dL [facility] Iron Saturation 10(L) 20 - 50 % [facility] Blood 03/31/2022 9:29 AM EDT 03/31/2022 11:41 AM EDT Narrative Resulting Agency Comment Spec In Lab Priya Charles SECOND MATE CHEMISTRY ORDERA BLES [facility] [address] [place] [address] * (ABNORMAL) Hemogram (03/31/2022 9:29 AM EDT) [...] APRN HEMATOLOGY ORDER [facility] [address] [place] [address] * Folate, serum (03/31/2022 9:29 AM EDT) Folate 7.5 4.8 - 24.2 ng/mL [facility] Blood 03/31/2022 9:29 AM EDT 03/31/2022 5:10 PM EDT Narrative Resulting Agency Comment Spec In Lab Priya Charles APRN CHEMISTRY ORDERA BLES Performing Organization Address City/[facility]/ZIP Co de Phone Number [facility] [place] [address] * (ABNORMAL) Ferritin (03/31/2022 9:29 AM EDT) [facility] Signature Ferritin 17(L) 30 - 400 ng/mL [facility] Comment: Pediatric reference ranges not verified at [facility], interpret with caution. Reference ranges for females greater than 50 years of age approach values for men, i.e., 30-400 ng/mL. Blood 03/31/2022 9:29 AM EDT 03/31/2022 11:41 AM EDT Narrative Resulting Agency Comment Spec In Lab Priya Charles APRN CHEMISTRY ORDERA BLES Performing Organization Address City/[facility]/ZIP Co de Phone Number [facility] [address] [place] [address] documented in this encounter Visit Diagnoses Diagnosis S/P gastric bypass Bariatric surgery status Disorder of iron metabolism Other disorders of iron metabolism Post-resection malabsorption Other and unspecified postsurgical nonabsorption documented in this encounter Care Teams Field Sales Trainer Relationship Specialty Start Date End Date Hoang Castellanos APRN [address] [place] [address] PCP - General Family Medicine 03/12/20 documented as of this encounter
--- OUTSIDE RECORDS SUMMARY | 2024-08-15 13:29 | XMS_ITS | Encounter Summary ---
Author Organization [facility] [place] [address] Care Team Providers Care Marble Helper Name Role Phone Hoang Castellanos APRN Primary Care Provider Reason for Visit * Home Health Care (Routine) - Closed Specialty Diagnoses / Procedures Referred By Vanita t Referred To Contact Diagnoses Cervical spondylosis with myelopathy Adri Moe MD [address] [place] [address] [address] Referral ID Status Reason Start Date Expiration Date V isits Requested Visits Authorized [id number] Closed Consult, Test & Treat 11/24/2021 11/24/[phone] Encounter Details Date Type Department Care Team (Latest Contact Info) Description 11/26/2021 9:30 AM EDT Home Care Visit [address] [phone] Bárbara Morfin RN SN OASIS [...] hospital bed referral from PCP Assess pill data processing systems project planner usage as there are new medications [...] for 1 month of visits Kimberly Majano [phone] [employer] [facility] [employer] [facility] care budget: wheelchair Aminah Haro [phone] emergency contact documented in this encounter Plan of Treatment Scheduled Referrals Name Type Priority Associated Diagnoses Orde r Schedule Referral to Home Health Outpatient Referral Routine Cervical spondylosis with myelopathy Ordered: 11/24/2021 documented as of this encounter Visit Diagnoses Not on filedocumented in this encounter Care Teams Marble Helper Relationship Specialty Start Date End Date Hoang Castellanos APRN [address] [place] [address] PCP - General Family Medicine 03/12/20 documented as of this encounter
--- OUTSIDE RECORDS SUMMARY | 2024-08-15 13:29 | XMS_ITS | Encounter Summary ---
[place] [address] Care Team Providers Care Rebrander Name Role Phone Hoang Castellanos APRN Primary Care Provider [phone] Encounter Details Date Type Department Care Team (Late st Contact Info) Description 11/04/2021 [place] [address] Chikis Orourke Social History Tobacco Use Types [...] - 11/04/2021 1:54 PM EDT Monique from [facility] calling to advise potential interaction between tramadol prescribed and Viibryd, please call to approve script or change medications documented in this encounter Plan of Treatment Not on file documented as of this encounter Visit Diagnoses Not on filedocumented in this encounter Care Teams Rebrander Relationship Specialty Start Date End Date Hoang Castellanos, DOUGHNUT MAKER [address] [place] [address] PCP - General Family Medicine 03/12/20 documented as of this encounter
--- OUTSIDE RECORDS SUMMARY | 2024-08-15 13:29 | XMS_ITS | Encounter Summary ---
Author Organization [facility] Address [facility] [place] [address] Care Team Providers Care Front Maker Lockstitch Name Role Phone Hoang Castellanos APRN Primary Care Provider Encounter Details Date Type Department Care Team (Late st Contact Info) Description 01/06/2022 11:00 AM EDT Home Care Visit [facility] [address] [place] [phone] Meena Greenwood LPN SN HOME VISIT [...] in this visit Pain/Comfort Deficit Disciplines: SN, CNC SERVICE TECHNICIAN Pain/comfort deficit related to back and shoulders [...] Alteration in Integumentary Status - Other Disciplines: DNOALD BARRERA Patient d/c from rehab with sutures [...] including precautions to avoid smoking, static electricity, submersible pilot lights on gas stoves and water [...] patient. documented in this encounter Care Teams Front Maker Lockstitch Relationship Specialty Start Date End Date Hoang Castellanos, BREAKER OPERATOR [address] [place] [address] PCP - General Family Medicine 03/12/20 documented as of this encounter
--- OUTSIDE RECORDS SUMMARY | 2024-08-15 13:29 | XMS_ITS | Encounter Summary ---
Author Organization [facility] Address [facility] [place] [address] Care Team Providers Care Bacteriology Technician Name Role Phone Hoang Castellanos APRN Primary Care Provider Encounter Details Date Type Department Care Team (Late st Contact Info) Description 01/13/2022 9:00 AM EDT Home Care Visit [facility] [address] [place] [phone] Fara Joel RN SN HOME VISIT [...] encounter Miscellaneous Notes * Case Communication - Fraa Joel RN - 01/13/2022 10:01 AM EDTCG [...] on filedocumented in this encounter Care Teams Bacteriology Technician Relationship Specialty Start Date End Date Hoang Castellanos, SENIOR IT ENGINEER [address] [place] [address] PCP - General Family Medicine 03/12/20 documented as of this encounter
--- OUTSIDE RECORDS SUMMARY | 2024-08-15 13:29 | XMS_ITS | Encounter Summary ---
Author Organization [facility] Address [facility] [place] [address] Care Team Providers Care Washing Machine Operator Name Role Phone Hoang Castellanos APRN Primary Care Provider Encounter Details Date Type Department Care Team (Late st Contact Info) Description 12/18/2021 10:00 AM EDT Home Care Visit [facility] [address] [place] [phone] Renetta Ta, OT OT HOME VISIT [...] MIN A FOR DRESSING AND USE OF PLANT FACILITIES TECHNICIAN FOR UNDERWEAR. HER IS BACK AT THE HOSPITAL AND MADE COMMENTS TO THIS CAPSULE FILLER THAT SHE IS WORRIED ABOUT HER SAFETY BEING HOME ALONE AND COOKING.FABIANA DUDLEY, FROM [facility] PCP OFFICE, CALLED DURING OT VISIT [...] MIN A FOR DRESSING AND USE OF PLANT FACILITIES TECHNICIAN FOR UNDERWEAR. HER IS BACK AT THE HOSPITAL AND MADE COMMENTS TO THIS CAPSULE FILLER THAT SHE IS WORRIED ABOUT HER SAFETY [...] living documented in this encounter Care Teams Washing Machine Operator Relationship Specialty Start Date End Date Hoang Castellanos, MOLD FILLER AND DRAINER [address] [place] [address] PCP - General Family Medicine 03/12/20 documented as of this encounter
--- OUTSIDE RECORDS SUMMARY | 2024-08-15 13:29 | XMS_ITS | Encounter Summary ---
Author Organization [facility] Address [facility] [place] [address] Care Team Providers Care Employee Relations Administrator Name Role Phone Hoang Castellanos APRN Primary Care Provider Encounter Details Date Type Department Care Team (Late st Contact Info) Description 12/29/2021 12:00 PM EDT Home Care Visit [facility] [address] [place] [phone] Raj Nowak, PT PT REASSESSMENT Social [...] training documented in this encounter Care Teams Employee Relations Administrator Relationship Specialty Start Date End Date Hoang Csatellanos, SCUBA DIVING TEACHER [address] [place] [address] PCP - General Family Medicine 03/12/20 documented as of this encounter
--- OUTSIDE RECORDS SUMMARY | 2024-08-15 13:29 | XMS_ITS | Encounter Summary ---
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-unsure if patient realizes this change * Telephone Encounter - Jeannie Luciano RN - 12/01/2021 4:02 PM EDT Message received from [facility] at [facility] asking to do a med reconciliation. 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
--- OUTSIDE RECORDS SUMMARY | 2024-08-15 13:29 | XMS_ITS | Encounter Summary ---
Author Organization [facility] Address [facility] [place] [address] Care Team Providers Care Consultant Technology Name Role Phone Hoang Castellanos APRN Primary Care Provider Encounter Details Date Type Department Care Team (Late st Contact Info) Description 12/02/2021 2:00 PM EDT Home Care Visit [facility] [address] [place] [phone] Bárbara Morfin, RN SN HOME VISIT [...] CP assessment, hospital bed, constipation Mirilax use, CURB AND GUTTER LABORER supervisory if necessary, Covid screening s/s, oxygen tank removal support, inhaler medication management documented in this encounter Plan of Treatment Not on file documented as of this encounter Visit Diagnoses Not on filedocumented in this encounter Home Health Visit - Care Plan Visit Details Visit Type -SN Home Visit Discipline -Fdc Problems Problem Description Start Date Status Goals [...] cg coming in to fill the pill data recovery planner for her and her . Pt [...] Completed documented in this encounter Care Teams Consultant Technology Relationship Specialty Start Date End Date Hoang Castellanos, POPCORN VENDOR [address] [place] [address] PCP - General Family Medicine 03/12/20 documented as of this encounter
--- OUTSIDE RECORDS SUMMARY | 2024-08-15 13:29 | XMS_ITS | Encounter Summary ---
Author Organization [facility] Address [facility] [place] [address] Care Team Providers Care Print Production Coordinator Name Role Phone Hoang Castellanos APRN Primary Care Provider [phone] Encounter Details Date Type Department Care Team (Late st Contact Info) Description 01/12/2022 Home Care Visit [facility] Home Health [address] [place] [phone] Marlene Carolina, RN TELEPHONE ENCOUNTER Social [...] filedocumented in this encounter Care Teams Print Production Coordinator Relationship Specialty Start Date End Date Hoang Castellanos APRN [address] [place] [address] PCP - General Family Medicine 03/12/20 documented as of this encounter
--- OUTSIDE RECORDS SUMMARY | 2024-08-15 13:29 | XMS_ITS | Encounter Summary ---
Author Organization [facility] Address [facility] [place] [address] Care Team Providers Care Dairy Equipment Specialist Name Role Phone Hoang Castellanos APRN Primary Care Provider Encounter Details Date Type Department Care Team (Late st Contact Info) Description 12/12/2021 3:00 PM EDT Home Care Visit [facility] [address] [place] [phone] Dhruv Balderrama, PT PT HOME VISIT [...] exercise documented in this encounter Care Teams Dairy Equipment Specialist Relationship Specialty Start Date End Date Hoang Castellanos, AUTOMOBILE BUMPER STRAIGHTENER [address] [place] [address] PCP - General Family Medicine 03/12/20 documented as of this encounter
--- OUTSIDE RECORDS SUMMARY | 2024-08-15 13:29 | XMS_ITS | Encounter Summary ---
Author Organization [facility] Address [facility] [place] [address] Care Team Providers Care Screw Machine Repairer Name Role Phone Hoang Castellanos APRN Primary Care Provider [phone] Encounter Details Date Type Department Care Team (Late st Contact Info) Description 12/16/2021 Home Care Visit [facility] Home Health [address] [place] [phone] Meena [place], PRINT SHOP ASSISTANT CASE COMMUNICATION Social History Tobacco Use Types [...] on filedocumented in this encounter Care Teams Screw Machine Repairer Relationship Specialty Start Date End Date Hoang Castellanos APRN [address] [place] [address] PCP - General Family Medicine 03/12/20 documented as of this encounter
--- OUTSIDE RECORDS SUMMARY | 2024-08-15 13:29 | XMS_ITS | Encounter Summary ---
Author Organization [facility] [place] [address] Care Team Providers Care Grain Merchandiser Name Role Phone Hoang Castellanos APRN Primary Care Provider Reason for Referral * Home Health Care (Routine) - Closed Specialty Diagnoses / Procedures Referred By Contdavide t Referred To Contact Diagnoses Cervical spondylosis with myelopathy Adri Moe MD [address] [place] [address] [phone] Referral ID Status Reason Start Date Expiration Date V isits Requested Visits Authorized [id number] Closed Consult, Test & Treat 11/24/2021 11/24/[phone] Encounter Details Date Type Department Care Team (Late st Contact Info) Description 11/24/2021 Transcribe Orders [facility] Incoming Referrals [phone] Adri Moe MD [address] [place] [phone] Cervical spondylosis with myelopathy Social History Tobacco [...] myelopathy documented in this encounter Care Teams Grain Merchandiser Relationship Specialty Start Date End Date Hoang Castellanos, PIANO MAKER [address] [place] [address] PCP - General Family Medicine 03/12/20 documented as of this encounter
--- OUTSIDE RECORDS SUMMARY | 2024-08-15 13:29 | XMS_ITS | Encounter Summary ---
Author Organization [facility] Address [facility] [place] [address] Care Team Providers Care Lens Inspector Name Role Phone Hoang Castellanos APRN Primary Care Provider Encounter Details Date Type Department Care Team (Late st Contact Info) Description 12/17/2021 10:30 AM EDT Home Care Visit [facility] [address] [place] [phone] Raj Nowak, PT PT HOME VISIT [...] training documented in this encounter Care Teams Lens Inspector Relationship Specialty Start Date End Date Hoang Castellanos APRN [address] [place] [address] PCP - General Family Medicine 03/12/20 documented as of this encounter
--- OUTSIDE RECORDS SUMMARY | 2024-08-15 13:29 | XMS_ITS | Encounter Summary ---
Author Organization [facility] Address [facility] [place] [address] Care Team Providers Care Regional Production Manager Name Role Phone Hoang Castellanos APRN Primary Care Provider Encounter Details Date Type Department Care Team (Late st Contact Info) Description 01/11/2022 3:00 PM EDT Home Care Visit [facility] [address] [place] [phone] Raj Nowak, PT PT HOME VISIT [...] training documented in this encounter Care Teams Regional Production Manager Relationship Specialty Start Date End Date Hoang Castellanos APRN [address] [place] [address] PCP - General Family Medicine 03/12/20 documented as of this encounter
--- OUTSIDE RECORDS SUMMARY | 2024-08-15 13:29 | XMS_ITS | Encounter Summary ---
Author Organization [facility] Address [facility] [place] [address] Care Team Providers Care Wood Casket Assembler Name Role Phone Hoang Castellanos APRN Primary Care Provider [phone] Encounter Details Date Type Department Care Team (Late st Contact Info) Description 12/24/2021 12:30 PM EDT Home Care Visit [facility] [address] [place] [phone] Raj Nowak, PT PT HOME VISIT [...] training documented in this encounter Care Teams Wood Casket Assembler Relationship Specialty Start Date End Date Hoang Castellanos, SAM [address] [place] [address] PCP - General Family Medicine 03/12/20 documented as of this encounter
--- OUTSIDE RECORDS SUMMARY | 2024-08-15 13:29 | XMS_ITS | Encounter Summary ---
Author Organization [facility] Address [facility] [place] [address] Care Team Providers Care Heel Seater Name Role Phone Hoang Castellanos APRN Primary Care Provider [phone] Encounter Details Date Type Department Care Team (Late st Contact Info) Description 01/08/2022 9:30 AM EDT Home Care Visit [facility] [address] [place] [phone] Renetta Ta, OT OT HOME VISIT [...] education documented in this encounter Care Teams Heel Seater Relationship Specialty Start Date End Date Hoang Castellanos, SAM [address] [place] [address] PCP - General Family Medicine 03/12/20 documented as of this encounter
--- OUTSIDE RECORDS SUMMARY | 2024-08-15 13:29 | XMS_ITS | Encounter Summary ---
Author Organization [facility] Address [facility] [place] [place] [address] Care Team Providers Care Mechanism Inspector Name Role Phone Hoang Castellanos APRN Primary Care Provider Encounter Details Date Type Department Care Team (Late st Contact Info) Description 12/14/2021 9:45 AM EDT Home Care Visit [facility] [address] [place] [phone] Jolly Haddad LNA AIDE HOME VISIT [...] Status Goals Interve ntions Personal Care Disciplines: MILL RECORDER Aide to assist patient with personal cares as directed. 11/26/2021 Active 1 goal linked to scheduled/documen leela intervention 6 goal interventions scheduled/document ed in this visit Activity Disciplines: MILL RECORDER Aide to assist patient activity tasks as [...] by aide as ordered Completed Transfers Description: MILL RECORDER assist with transfers using Tub chair with extension Problem:Activity Goal:Patient activity needs will be completed by aide as ordered Completed Assist with Ambulation Description: MILL RECORDER assist with ambulation using walker or wheelchair Problem:Activity Goal:Patient activity needs will be completed by aide as ordered Completed Assist Repositioning Description: Assist with repositioning patient. Problem:Activity Goal:Patient activity needs will be completed by aide as ordered Completed documented in this encounter Care Teams Mechanism Inspector Relationship Specialty Start Date End Date Hoang Castellanos, PIN DRAFTING MACHINE TENDER [address] [place] [address] PCP - General Family Medicine 03/12/20 documented as of this encounter
--- OUTSIDE RECORDS SUMMARY | 2024-08-15 13:29 | XMS_ITS | Encounter Summary ---
Author Organization [facility] [place] [address] Care Team Providers Care Wheel Installer Name Role Phone Hoang Castellanos APRN Primary Care Provider Reason for Visit * Reason Comments Follow-up Encounter Details Date Type Department Care Team (Late st Contact Info) Description 12/01/2021 11:30 AM EDT Office Visit [facility] [place] [phone] Hoang Castellanos APRN [address] [place] [address] Cervicalgia; Chronic pain syndrome; Chronic obstructive pulmonary [...] a 61 y.o. female presenting to the [facility] Primary Care Clinic HPI Discharge from [facility] Neck pain s/p C5-6 PCDF on [...] up but ends up on stomach anyway [facility] HH services HH RN, P.T., O.T. Right [...] lozenges/gum-would like patches Overnight oximetry done at [facility]. Home O2 was ordered through [employer]. Lowest [...] providingthis patient's care. This includes time spent [id number] with the patient performing evaluation, examination, and counseling. It also includes non [id number] time preparing to see the patient, reviewing the chart, coordinating care, and documenting clinical information in the electronic health record. (Established patient total visit time: 37127 - 20min, 41832 - 30 min, 56701 - 40 min; New patient total visit times: 73275 - 30 min, 13813 - 45 min, 76610 - 60 min) documented in this encounter [...] limbs documented in this encounter Care Teams Wheel Installer Relationship Specialty Start Date End Date Hoang Castellanos APRN [address] [place] [address] PCP - General Family Medicine 03/12/20 documented as of this encounter
--- OUTSIDE RECORDS SUMMARY | 2024-08-15 13:29 | XMS_ITS | Encounter Summary ---
Author Organization [facility] Address [facility] [place] [address] Care Team Providers Care Vice President Media Relations Name Role Phone Hoang Castellanos APRN Primary Care Provider Encounter Details Date Type Department Care Team (Late st Contact Info) Description 01/14/2022 Orders Only Primary Care at [facility] [address] [place] [address] Hoang Castellanos APRN [address] [place] [address] Dermal mycosis Social History Tobacco Use Types [...] unspecified documented in this encounter Care Teams Vice President Media Relations Relationship Specialty Start Date End Date Hoang Castellanos APRN [address] [place] [address] PCP - General Family Medicine 03/12/20 documented as of this encounter
--- OUTSIDE RECORDS SUMMARY | 2024-08-15 13:29 | XMS_ITS | Encounter Summary ---
Author Organization [facility] Address [facility] [place] [address] Care Team Providers Care Store Deli Manager Name Role Phone Hoang Castellanos APRN Primary Care Provider Encounter Details Date Type Department Care Team (Late st Contact Info) Description 12/28/2021 9:30 AM EDT Home Care Visit [facility] [address] [place] [phone] Renetta Ta, OT OT HOME VISIT [...] leisure, documented in this encounter Care Teams Store Deli Manager Relationship Specialty Start Date End Date Hoang Castellanos APRN [address] [place] [address] PCP - General Family Medicine 03/12/20 documented as of this encounter
--- OUTSIDE RECORDS SUMMARY | 2024-08-15 13:29 | XMS_ITS | Encounter Summary ---
Author Organization [facility] [place] [address] Care Team Providers Care Billiard Player Name Role Phone Hoang Castellanos APRN Primary Care Provider [phone] Encounter Details Date Type Department Care Team (Late st Contact Info) Description 11/26/2021 Telephone Primary Care at [facility] [place] [phone] Jeannie Luciano, RN Social History Tobacco Use [...] send notes and any further ? call [phone] Message received from Raven at [facility]. 1)any sutures can be removed at any [...] PM EDT Message received from Paige at [facility] calling back to discuss. Tried to reach [...] about O2. Reviewed the d/c summary from [facility] and there was nothing noted about sutures, nothing noted about her positional needs for hospital bed and according to the D/C summary, respiratory therapy at [facility] was ordering an overnight oximetry while she was admitted and they would order the O2. We have not received notes from the overnight oximetry and those will be needed per Medicare guidelines. Call placed to [facility] asking for more information; awaiting call back. documented in this encounter Plan of Treatment Not on file documented as of this encounter Visit Diagnoses Not on filedocumented in this encounter Care Teams Billiard Player Relationship Specialty Start Date End Date Hoang Castellanos, BORDEREAU CLERK [address] [place] [address] PCP - General Family Medicine 03/12/20 documented as of this encounter
--- OUTSIDE RECORDS SUMMARY | 2024-08-15 13:29 | XMS_ITS | Encounter Summary ---
Author Organization [facility] [place] [address] Care Team Providers Care Dairy Nutrition Consultant Name Role Phone Hoang Castellanos APRN Primary Care Provider Reason for Visit * Home Health Care (Routine) - Closed Specialty Diagnoses / Procedures Referred By Vanita t Referred To Contact Diagnoses Cervical spondylosis with myelopathy Adri Moe MD [address] [place] [address] [phone] Referral ID Status Reason Start Date Expiration Date V isits Requested Visits Authorized [id number] Closed Consult, Test & Treat 11/24/2021 11/24/[phone] Encounter Details Date Type Department Care Team (Late st Contact Info) Description 12/02/2021 9:00 AM EDT Home Care Visit [address] [phone] Renetta Ta, OT OT EVALUATION [...] on filedocumented in this encounter Care Teams Dairy Nutrition Consultant Relationship Specialty Start Date End Date Hoang Castellanos APRN [address] [place] [address] PCP - General Family Medicine 03/12/20 documented as of this encounter
--- OUTSIDE RECORDS SUMMARY | 2024-08-15 13:29 | XMS_ITS | Encounter Summary ---
Author Organization [facility] Address [facility] [place] [address] Care Team Providers Care Calf Skinner Name Role Phone Hoang Castellanos APRN Primary Care Provider Encounter Details Date Type Department Care Team (Late st Contact Info) Description 12/17/2021 9:00 AM EDT Home Care Visit [facility] [address] [place] [phone] Bárbara Morfin, RN SN HOME VISIT [...] medications that were not in home yet, CUSTOMER SUPPORT PROFESSIONAL check in, Hygiene GI/ care, Pain mgmt documented in this encounter Plan of Treatment Not on file documented as of this encounter Visit Diagnoses Not on filedocumented in this encounter Home Health Visit - Care Plan Visit Details Visit Type -SN Home Visit Discipline -Snf Problems Problem Description Start Date Status Goals Interventions Learning/Teaching Needs - Inhalation Treatments Disciplines: SN, PUBLIC HEALTH ADMINISTRATOR Lack of knowledge in how to administer inhalant treatments and how to care for the equipment. 11/26/2021 Active 1 goal linked to scheduled/docume nted intervention 1 goal intervention scheduled/documen shabana in this visit Supervisory Visit Disciplines: DONALD BARRERA Supervision of the [facility]. 11/26/2021 Active 1 goal linked [...] Alteration in Integumentary Status - Other Disciplines: DOANLD BARRERA Patient d/c from rehab with sutures [...] including precautions to avoid smoking, static electricity, yard pilot lights on gas stoves and water [...] Visit Description: Perform supervisory visit of the CUSTOMER SUPPORT PROFESSIONAL at minimum every 16 days. Perform supervisory visit of the PT Sales Service Manager at minimum every 5th visit or every 30 days. Problem:Supervisory Visit Goal:Supervisory visit will be completed as ordered Completed Supervisory visit of CUSTOMER SUPPORT PROFESSIONAL performed. See aide/supervisory visit documentation for assessment. [...] Completed documented in this encounter Care Teams Calf Skinner Relationship Specialty Start Date End Date Hoang Castellanos APRN [address] [place] [address] PCP - General Family Medicine 03/12/20 documented as of this encounter
--- OUTSIDE RECORDS SUMMARY | 2024-08-15 13:29 | XMS_ITS | Encounter Summary ---
Author Organization [facility] [place] [address] Care Team Providers Care Room Server Name Role Phone Hoang Castellanos APRN Primary Care Provider Reason for Visit * Home Health Care (Routine) - Closed Specialty Diagnoses / Procedures Referred By Vanita t Referred To Contact Diagnoses Cervical spondylosis with myelopathy Adri Moe MD [address] [place] [address] [phone] Referral ID Status Reason Start Date Expiration Date V isits Requested Visits Authorized [id number] Closed Consult, Test & Treat 11/24/2021 11/24/[phone] Encounter Details Date Type Department Care Team (Late st Contact Info) Description 11/30/2021 9:00 AM EDT Home Care Visit [address] [phone] Raj Nowak, PT PT EVALUATION [...] 10.30.21. [facility] RETURN[facility] HOME ON 11.24.21. PATIENT LIVES AT HOME WITH HER IN 1ST FLOOR APARTMENTWITH RAMP TO ENTER. PATIENT RECEIVED [facility] HH PT SERVICES PRIOR TO SURGERY [...] TO CONTINUE WITH SUPINE/SEATED EXERCISES INSTRUCTED PER [facility]. SHE VERBALIZES UNDERSTANDING. SHE WILL CONTINUE TO BENEFIT FROM [facility] PT SERVICES IN ORDER TO FURTHER IMPROVE HER STRENGTH, SAFETY, AND ACTIVITY TOLERANCE, WITH GOAL FOR EVENTUAL DC TO OPPT. documented in this encounter Plan of Treatment Not on file documented as of this encounter Visit Diagnoses Not on filedocumented in this encounter Care Teams Room Server Relationship Specialty Start Date End Date Hoang Castellanos APRN [address] [place] [address] PCP - General Family Medicine 03/12/20 documented as of this encounter
--- OUTSIDE RECORDS SUMMARY | 2024-08-15 13:29 | XMS_ITS | Encounter Summary ---
Author Organization [facility] Address [facility] [place] [address] Care Team Providers Care Field Radio Technician Name Role Phone Hoang Castellanos APRN Primary Care Provider Encounter Details Date Type Department Care Team (Late st Contact Info) Description 12/11/2021 2:15 PM EDT Home Care Visit [facility] [address] [place] [phone] Bárbara Morfin, RN SN HOME VISIT [...] in home, pt may need assistance calling the[employer] company to remove empty tank. documented in [...] scheduled/documen leela in this visit Medications Disciplines: ODNALD BARRERA Management of home medications. 11/26/2021 Active [...] including precautions to avoid smoking, static electricity, supervising airplane pilot lights on gas stoves and water [...] house. documented in this encounter Care Teams Field Radio Technician Relationship Specialty Start Date End Date Hoang Castellanos APRN [address] [place] [address] PCP - General Family Medicine 03/12/20 documented as of this encounter
--- OUTSIDE RECORDS SUMMARY | 2024-08-15 13:29 | XMS_ITS | Encounter Summary ---
Author Organization [facility] Address [facility] [place] [address] Care Team Providers Care Gearman Name Role Phone Hoang Castellanos APRN Primary Care Provider Encounter Details Date Type Department Care Team (Late st Contact Info) Description 12/04/2021 11:00 AM EDT Home Care Visit [facility] [address] [place] [phone] Jolly Haddad LNA AIDE HOME VISIT [...] Status Goals Interve ntions Personal Care Disciplines: DRAFTER (CAD) ELECTRONIC Aide to assist patient with personal cares as directed. 11/26/2021 Active 1 goal linked to scheduled/documen leela intervention 6 goal interventions scheduled/document ed in this visit Activity Disciplines: DRAFTER (CAD) ELECTRONIC Aide to assist patient activity tasks as [...] ordered Scheduled with variance N/A Transfers Description: DRAFTER (CAD) ELECTRONIC assist with transfers using Tub chair with extension Problem:Activity Goal:Patient activity needs will be completed by aide as ordered Completed Assist with Ambulation Description: DRAFTER (CAD) ELECTRONIC assist with ambulation using walker or wheelchair Problem:Activity Goal:Patient activity needs will be completed by aide as ordered Completed Assist Repositioning Description: Assist with repositioning patient. Problem:Activity Goal:Patient activity needs will be completed by aide as ordered Completed documented in this encounter Care Teams Gearman Relationship Specialty Start Date End Date Hoang Castellanos, STRING TOP SEALER [address] [place] [address] PCP - General Family Medicine 03/12/20 documented as of this encounter
--- OUTSIDE RECORDS SUMMARY | 2024-08-15 13:29 | XMS_ITS | Encounter Summary ---
Author Organization [facility] Address [place] [address] Care Team Providers Care Marketing Project Coordinator Name Role Phone Hoang Castellanos APRN Primary Care Provider [phone] Encounter Details Date Type Department Care Team (Late st Contact Info) Description 06/06/2022 Plan of Care Documentation [facility] Home Health [address] [place] [phone] Social History Tobacco Use Types Packs/Day [...] filedocumented in this encounter Care Teams Marketing Project Coordinator Relationship Specialty Start Date End Date Hoang Castellanos, SAM [address] [place] [address] PCP - General Family Medicine 03/12/20 documented as of this encounter
--- OUTSIDE RECORDS SUMMARY | 2024-08-15 13:29 | XMS_ITS | Encounter Summary ---
Author Organization [facility] Address [facility] [place] [address] Care Team Providers Care Call Circuit Worker Name Role Phone Hoang Castellanos APRN Primary Care Provider Reason for Visit * Reason Onset Date Comments Prior Authorization 12/02/2021 Encounter Details Date Type Department Care Team (Late st Contact Info) Description 12/02/2021 Telephone Primary Care at [facility] [address] [place] [address] Gautam Davidson Prior Authorization Social History Tobacco [...] filedocumented in this encounter Care Teams Call Circuit Worker Relationship Specialty Start Date End Date Hoang Castellanos APRN [address] [place] [address] PCP - General Family Medicine 03/12/20 documented as of this encounter
--- OUTSIDE RECORDS SUMMARY | 2024-08-15 13:29 | XMS_ITS | Encounter Summary ---
Author Organization [facility] Address [facility] [place] [address] Care Team Providers Care Property Underwriter Name Role Phone Hoang Castellanos APRN Primary Care Provider [phone] Encounter Details Date Type Department Care Team (Late st Contact Info) Description 11/30/2021 Orders Only Primary Care at [facility] [address] [facility] [place] [address] Hoang Castellanos APRN [address] [place] [address] Social History Tobacco Use Types Packs/Day Years [...] filedocumented in this encounter Care Teams Property Underwriter Relationship Specialty Start Date End Date Hoang Castellanos APRN [address] [place] [address] PCP - General Family Medicine 03/12/20 documented as of this encounter
--- OUTSIDE RECORDS SUMMARY | 2024-08-15 13:29 | XMS_ITS | Encounter Summary ---
Author Organization [facility] [place] [address] Care Team Providers Care Teletype Mechanic Name Role Phone Hoang Castellanos APRN Primary Care Provider Encounter Details Date Type Department Care Team (Late st Contact Info) Description 12/15/2021 Refill Primary Care at [facility] [address] [place] [phone] Yvonne Luciano RN Social History Tobacco Use [...] and adding a cough suppressant at nighttime ([id number] [id number]) for about two weeks. Hopefully in [...] ED. Pt verbalized understanding. Note routed to solution spec provider. documented in this encounter Plan of Treatment Not on file documented as of this encounter Visit Diagnoses Not on filedocumented in this encounter Care Teams Teletype Mechanic Relationship Specialty Start Date End Date Hoang Castellanos APRN [address] [place] [address] PCP - General Family Medicine 03/12/20 documented as of this encounter
--- OUTSIDE RECORDS SUMMARY | 2024-08-15 13:29 | XMS_ITS | Encounter Summary ---
Author Organization [facility] Address [facility] [place] [address] Care Team Providers Care Beater Dumper Name Role Phone Hoang Castellanos APRN Primary Care Provider [phone] Encounter Details Date Type Department Care Team (Late st Contact Info) Description 12/23/2021 1:30 PM EDT Home Care Visit [facility] [address] [place] [phone] Bárbara Morfin, RN SN HOME VISIT [...] Learning/Teaching Needs - Inhalation Treatments Disciplines: SN, DIRECTOR FRANCHISE SALES Lack of knowledge in how to administer [...] including precautions to avoid smoking, static electricity, towboat pilot lights on gas stoves and water [...] hours. senior solutions looking for a weekly silverware cleaner but needs a deep clean first. [...] number documented in this encounter Care Teams Beater Dumper Relationship Specialty Start Date End Date Hoang Castellanos, REGIONAL SALES REPRESENTATIVE [address] [place] [address] PCP - General Family Medicine 03/12/20 documented as of this encounter
--- OUTSIDE RECORDS SUMMARY | 2024-08-15 13:29 | XMS_ITS | Encounter Summary ---
[place] [address] Care Team Providers Care Bleach Boiler Puller Name Role Phone Hoang Castellanos APRN Primary Care Provider Encounter Details Date Type Department Care Team (Late st Contact Info) Description 01/06/2022 Orders [place] [phone] Tegan Garcia RN Cervical spinal stenosis Social [...] cervical lateral mass screws and rods at [id number] for subtle differences in projection. No hardware [...] region documented in this encounter Care Teams Bleach Boiler Puller Relationship Specialty Start Date End Date Hoang Castellanos, DIRECTIONAL DRILLER [address] [place] [address] PCP - General Family Medicine 03/12/20 documented as of this encounter
--- OUTSIDE RECORDS SUMMARY | 2024-08-15 13:29 | XMS_ITS | Encounter Summary ---
Author Organization [facility] Address [facility] [address] Care Team Providers Care Transit Department Clerk Name Role Phone Hoang Castellanos APRN Primary Care Provider [phone] Encounter Details Date Type Department Care Team (Late st Contact Info) Description 01/07/2022 1:30 PM EDT Home Care Visit [facility] [address] [place] [phone] Raj Nowak, PT PT HOME VISIT [...] patient/caregiver documented in this encounter Care Teams Transit Department Clerk Relationship Specialty Start Date End Date Hoang Castellanos, MARSH BUGGY OPERATOR [address] [place] [address] PCP - General Family Medicine 03/12/20 documented as of this encounter
--- OUTSIDE RECORDS SUMMARY | 2024-08-15 13:29 | XMS_ITS | Encounter Summary ---
[place] [address] Care Team Providers Care Trimmer Hand Name Role Phone Mark Holguin APRN Primary Care Provider Encounter Details Date Type Department Care Team (Late st Contact Info) Description 11/26/2021 Telephone Primary Care at [facility] [address] [place] [phone] Yvonne Luciano, RN Social History Tobacco Use [...] hospital bed after her recent D/C from [facility] after neck surgery. No D/C notes in chart. Called [facility] and they are re-faxing now. documented in this encounter Plan of Treatment Not on file documented as of this encounter Visit Diagnoses Diagnosis Cervical spondylosis with myelopathy documented in this encounter Care Teams Trimmer Hand Relationship Specialty Start Date End Date Mark Holguin APRN [address] [place] [address] PCP - General Family Medicine 03/12/20 documented as of this encounter
--- OUTSIDE RECORDS SUMMARY | 2024-08-15 13:29 | XMS_ITS | Encounter Summary ---
Author Organization [facility] Address [facility] [place] [address] Care Team Providers Care Track Maintainer Name Role Phone Hoang Castellanos APRN Primary Care Provider Reason for Visit * Reason Onset Date Comments Social Service Coordination 12/18/2021 Encounter Details Date Type Department Care Team (Late st Contact Info) Description 12/18/2021 Telephone Primary Care at [facility] [address] [place] [phone] Jeannie Luciano, RN Social Service Coordination Social [...] visiting but will be ret'd home to [place] tomorrow. No release on file to speak with rae; placed call to pt. Jeannie said ERMA Jackson from [facility] was there at the time. Renetta [...] the ceiling so she has to walk nursing home into the room before she can turn [...] see if Sanjuana would be willing to cotton picking machine operator some easy to prepare frozen foods that are also healthy options. Jeannie does get Meals [employer] Wheels on weekdays and they also have frozen meal options. Jeannie will call them to arrange delivery. Jeannie has [facility] PT, OT, FORESTRY FACULTY MEMBER and SN who will visit her regularly. HCRS Client Operations Manager, Angela was scheduled to visit Jeannie [...] emergencies. Jeannie is aware she can call [facility] 14/02 with any questions or concerns. She knows she can also call the clinic at any time; if it's after hours, the provider dice person will be paged. Jeannie or Rae will call 911 if needed. Jeannie did give me verbal permission to speak with her sister about our conversation and the plan put in place. documented in this encounter Plan of Treatment Not on file documented as of this encounter Visit Diagnoses Not on filedocumented in this encounter Care Teams Track Maintainer Relationship Specialty Start Date End Date Hoang Castellanos, TRAFFIC WORKFORCE REPRESENTATIVE [address] [place] [address] PCP - General Family Medicine 03/12/20 documented as of this encounter
--- OUTSIDE RECORDS SUMMARY | 2024-08-15 13:29 | XMS_ITS | Encounter Summary ---
Author Organization [facility] Address [facility] [place] [address] Care Team Providers Care Bank Compliance Officer Name Role Phone Hoang Castellanos APRN Primary Care Provider [phone] Encounter Details Date Type Department Care Team (Late st Contact Info) Description 01/12/2022 Home Care Visit [facility] [address] [place] [phone] Fara Joel RN TELEPHONE ENCOUNTER Social [...] on filedocumented in this encounter Care Teams Bank Compliance Officer Relationship Specialty Start Date End Date Hoang Castellanos, INTEGRATION SOLUTION ARCHITECT [address] [place] [address] PCP - General Family Medicine 03/12/20 documented as of this encounter
--- OUTSIDE RECORDS SUMMARY | 2024-08-15 13:30 | XMS_ITS | Encounter Summary ---
Author Organization [facility] [place] [address] Care Team Providers Care Salesperson Terrazzo Tiles Name Role Phone Hoang Castellanos APRN Primary Care Provider [phone] Reason for Visit * Reason Comments Medication Refill Encounter Details Date Type Department Care Team (Late st Contact Info) Description 09/28/2021 Refill Primary Care at [facility] [address] [place] [phone] Hoang Castellanos APRN [address] [facility] [place] [address] Social History Tobacco Use Types Packs/Day Years [...] * Telephone Encounter - Maria D Joshi [facility] - 09/28/2021 1:19 PM EST Medication [...] filedocumented in this encounter Care Teams Salesperson Terrazzo Tiles Relationship Specialty Start Date End Date Hoang Castellanos, BAKERY TEAM MEMBER [address] [place] [address] PCP - General Family Medicine 03/12/20 documented as of this encounter
--- OUTSIDE RECORDS SUMMARY | 2024-08-15 13:30 | XMS_ITS | Encounter Summary ---
Author Organization [facility] Address [facility] [place] [address] Care Team Providers Care Government Contracts Manager Name Role Phone Hoang Castellanos APRN Primary Care Provider Reason for Referral * Home Health Care (Routine) - Closed Specialty Diagnoses / Procedures Referred By Contdavide t Referred To Contact Home Health Agency Diagnoses Cervical spondylosis Cervicalgia Eden Lemos MD [address] [place] [address] Visiting Nurse[facility] [address] [address] Referral ID Status Reason Start Date Expiration Date V isits Requested Visits Authorized [id number] Closed PT/OT 09/04/2021 03/03/2022 1 1 Encounter Details Date Type Department Care Team (Late st Contact Info) Description 09/03/2021 Telephone Primary Care at [place] [facility] [address] [place] [phone] Lay Rosas, RN Social History Tobacco Use [...] message from Elena a PT from the [facility] stating they admitted Jeannie to their service and will provide PT Twice a week for six weeks. Elena is also requesting a referral for OT and a medical chief technician which she feels Jeannie can benefit from. Requested routed to provider documented in this encounter Plan of Treatment Scheduled Referrals Name Type Priority Associated Diagnoses Orde r Schedule Referral to Home Health - Clinic Use Outpatient Referral Routine Syncope, unspecified syncope type Ordered: 09/04/2021 documented as of this encounter Visit Diagnoses Diagnosis Syncope, unspecified syncope type documented in this encounter Care Teams Government Contracts Manager Relationship Specialty Start Date End Date Hoang Castellanos APRN [address] [place] [address] PCP - General Family Medicine 03/12/20 documented as of this encounter
--- OUTSIDE RECORDS SUMMARY | 2024-08-15 13:30 | XMS_ITS | Encounter Summary ---
Author Organization [facility] [place] [address] Care Team Providers Care Hackler Doll Wigs Name Role Phone Hoang Castellanos APRN Primary [...] Expiration Date Visits Re quested Visits Authorized [id number] 1 1 Encounter Details Date Type Department Care Team (Latest Contact Info) Description 10/27/2021 10:30 AM EDT Public Health [place] [address] Encounter for preprocedure screening laboratory testing for [...] EDT) SARS-CoV-2 RNA Not Detected Not Detected [facility] [...] diagnosis of COVID-19 is performed using the ExoY[employer] m SARS-CoV-2 Assay as authorized by the FDA Emergency Use Authorization (EUA). This EUA assay is intended for In-vitro Diagnostic (IVD) use with respiratory specimens such as nasopharyngeal swabs collected from individuals during the acute phase of infection. This assay is performed based on the instructions for use provided by [employer] and additional guidance provided by CDC and FDA. Testing is performed in the [facility] Laboratory within the Department of Pathology and Laboratory Medicine at [facility], certified under the Clinical Laboratory Improvement Amendments [...] fact sheets at the following FDA website: https://www.fda.gov/medical-devices/oqsssfxnbgf-xfohsrj-5968-ohnkf-15-qotccconr- use-a dxblkxdafwpov-dhnthle-qqymttq/zkfza-srvzctlvskv-gxdv SARS-CoV-2 RNA Source CERTIFIED OPHTHALMIC ASSISTANT Swab [facility] Nasopharyngeal Swab 10/28/19 11:32 AM EDT 10/27/2021 11:32 AM EDT Comment:Symptoms->Asymptomat ic Narrative Resulting Agency Comment Spec In Lab Campos Puente MD MOLECULAR ORDERABLES [facility] [place] [address] documented in this encounter Visit Diagnoses Diagnosis Encounter for preprocedure screening laboratory testing for COVID-19 documented in this encounter Care Teams Hackler Doll Wigs Relationship Specialty Start Date End Date Hoang Castellanos APRN [address] [place] [address] PCP - General Family Medicine 03/12/20 documented as of this encounter
--- OUTSIDE RECORDS SUMMARY | 2024-08-15 13:30 | XMS_ITS | Encounter Summary ---
Author Organization [facility] Address [facility] [place] [address] Care Team Providers Care Limo Driver Name Role Phone Hoang Castellanos APRN Primary Care Provider [phone] Encounter Details Date Type Department Care Team (Late st Contact Info) Description 10/29/2021 Telephone [place] [address] Campos Puente MD [facility] [place] [address] Social History Tobacco Use Types Packs/Day Years [...] on filedocumented in this encounter Care Teams Limo Driver Relationship Specialty Start Date End Date Hoang Castellanos, ANALYSIS CONSULTANT [address] [place] [address] PCP - General Family Medicine 03/12/20 documented as of this encounter
--- OUTSIDE RECORDS SUMMARY | 2024-08-15 13:30 | XMS_ITS | Encounter Summary ---
Author Organization [facility] [place] [address] Care Team Providers Care Digital Campaign Manager Name Role Phone Hoang Castellanos APRN [...] Expiration Date Visits Re quested Visits Authorized [id number] 1 1 Encounter Details Date Type Department Care Team (Latest Contact Info) Description 10/30/2021 6:57 AM EDT - 11/04/2021 4:02 PM EDT Hospital Encounter [address] [place] [id number] Campos Schumacher MD [facility] [place] [place] [address] Cervical spinal stenosis; Bradycardia; Right leg weakness [...] the last few months. telephone consent by [facility] Course: Jeannie Rico presented 10/30/2021 for [...] have questions please contact the health career placement services counselor that requested your imaging first. Head wo [...] have questions please contact the health career placement services counselor that requested your imaging first. Electronically signed by: Janie Aguilar MD, [facility] ([phone]), at 11/02/2021 12:47 AM XR Chest PA [...] have questions please contact the health career placement services counselor that requested your imaging first. Electronically signed by: Tahira Medrano MD, [facility] ([phone]), at 11/02/2021 11:12 AM Pending Studies and Lab Data: na Discharge Condition: Stable Discharge to: rehab Future Appointments and Orders Future Appointments and Orders Future Appointments Provider Department Dept Phone 12/03/2021 10:30 AM Campos Schumacher MD [facility]surgery at [facility] Arrive at: Commercial Lines Account Manager Area [phone] 12/22/2021 9:45 AM Michael Espinoza MD Endocrinology at [facility] Arrive at: [employer] Account Manager Area 3A [phone] Future Orders Complete By Expires XR Cervical Spine 2 or 3 Views [[id number] Custom] 12/04/2021 (Approximate) 01/04/2022 Process Instructions: Scheduling Instructions: Questions: Where will study be performed?: [facility] Radiology Portable exam?: Reason for exam [...] 30 gauge Misc 1 each by [facility].(Non-Drug; Combo Route) route daily. 1 [...] anticoagulant, and non-steroidal anti-inflammatory (NSAIDs) drugs. Common bfll-zqj-vuwwayl medications which should be avoided include Aspirin, [...] to pass. These medications can be obtained wsim-mrz-stvdnzm and their use is recommended on an [...] retention Constipation not relieved by diet and/or kasl-igp-yysnfur stool softeners and laxatives Nausea/vomiting (upset stomach) [...] tobacco dependence clinics in these locations: ??? [facility]: [place] ??? [facility] Tobacco Treatment [place], [place] Other Programs at [facility] in [place] ??? Living Free of Tobacco support group: For anyone who has quit tobacco or is considering quitting tobacco. [facility] Health Education Center, Level 4, [place] 3:30 to 4:30 p.m. on the tuesday of every month. Other Programs in the Area ??? [facility] in [place] One-on-one counseling, hypnosis. Cassidy Jamison ??? [facility] in [place], [place] One-on-one counseling, QuitLine, classes. Lay Ferris ??? [facility]: One-on-one counseling. All ages and incomes eligible. Sakshi Camacho [facility]: Classes & support group. Behzad Schwab ??? [facility] in [place], [place] One-on-one counseling, QuitLine, classes, hypnosis therapy. Ruth Corey Information about Quitting Smoking and Tobacco See our Quitting Smoking - Information and Materials page (http://[email or web address]/medical- information/smoking/information_on_quitting_smoking.html) for educational information about quitting smoking, downloadable smoking cessation materials, podcasts, websites, helplines, and more. FOLLOW UP PLAN: Incision: [x] Your artie need to be removed on 11/13/2021. You can get them removed by coming into our office, PCP office, or at rehab. a Appointments: Please follow up in the Neurosurgery Clinic in 4-6 weeks. Please call the Neurosurgery Office at [phone] if you do not receive a scheduled appointment within two weeks. Your follow-up appointment will be with: [x] Dr. Schumacher Follow-up Imaging: [x] XR - Cervical HOW TO REACH NEUROSURGERY Office Hours: Tuesday through Tuesday, 8am-5pm. Call . On weekends or after office hours: Call [phone] and ask the dust mill operator to page the Neurosurgery Resident/Advanced Practice Provider sales promotion director. IMPORTANT PHONE NUMBERS: Outpatient Nurse (Karen Belle) Inpatient Nurses Neurosurgical Resident/Advanced Practice Provider On-Call (after 5pm or before 8am) Neurosurgery offices (Tuesday through Tuesday between 8am-5pm): Adult Neurosurgery Dr. Remy Green Pediatric Neurosurgery Dr. Cassidy Funes Advanced Practice Providers Prudence Heaton, Nurse Practitioner (outpatient) Cheryl Patel, Physician Labor/Excavator (inpatient) Mabel Metcalf, Nurse Practitioner (inpatient) Brandi Chiu, Physician Labor/Excavator (inpatient) Brandi Benavides, Physician Labor/Excavator (inpatient) Karen Barksdale, Nurse Practitioner (outpatient: vascular) Amanda Mendez, Physician Labor/Excavator (outpatient: spine) David Herring, Nurse Practitioner (inpatient/outpatient) Freddy Dolan, Physician Labor/Excavator (outpatient) Margo Almodovar, Nurse Practitioner (outpatient: neuro-oncology) HOW TO REACH NEUROSURGERY Office Hours (Tuesday through Tuesday 8am-5pm): Call On weekends or after office hours (after 5pm or before 8am): Call [phone] and ask the dust mill operator to page the Neurosurgery Resident/Advanced Practice Provider sales promotion director. *Your surgeon may not be call worker (especially after office hours or on the weekend) so be ready totell about yourself and your surgery when you call. Neurosurgery Providers Adult Neurosurgery Dr. Remy Green Pediatric Neurosurgery Dr. Cassidy Funes Advanced Practice Providers Prudence Heaton, Nurse Practitioner (outpatient) Cheryl Patel, Physician Labor/Excavator (inpatient) Mabel Metcalf, Nurse Practitioner (inpatient) Brandi Chiu, Physician Labor/Excavator (inpatient) Dereck Salgado, Nurse Practitioner (outpatient: pediatric) Brandi Benavides, Physician Labor/Excavator (inpatient) Karen Barksdale, Nurse Practitioner (outpatient: vascular) Amanda Mendez, Physician Labor/Excavator (outpatient: spine) David Herring, Nurse Practitioner (inpatient/outpatient) Freddy Dolan, Physician Labor/Excavator (outpatient) Margo Almodovar, Nurse Practitioner (outpatient: neuro-oncology) [...] anticoagulant, and non-steroidal anti-inflammatory (NSAIDs) drugs. Common tacr-vca-cwqffti medications which should be avoided include Aspirin, [...] to pass. These medications can be obtained rbpe-dpw-zbzophn and their use is recommended on an [...] retention Constipation not relieved by diet and/or cixp-yxv-epcqiic stool softeners and laxatives Nausea/vomiting (upset stomach) [...] have tobacco dependence clinics in these locations: [facility]: [place] [facility] Tobacco Treatment [facility], [place] Other Programs at [facility] in [place] Living Free of Tobacco support group: For anyone who has quit tobacco or is considering quitting tobacco. [facility] Health Education Center, Level 4, [place] 3:30 to 4:30 p.m. on the tuesday of every month. Other Programs in the Area [facility] in [place] One-on-one counseling, hypnosis. Cassidy Jamison [facility] in [place], [place] One-on-one counseling, QuitLine, classes. Lay Ferris [facility]: One-on-one counseling. All ages and incomes eligible. Sakshi Camacho [facility]: Classes & support group. Behzad Schwab [facility] in [place], [place] One-on-one counseling, QuitLine, classes, hypnosis therapy. Ruth Corey Information about Quitting Smoking and Tobacco See our Quitting Smoking - Information and Materials page (http://[email or web address]/medical- information/smoking/information_on_quitting_smoking.html) for educational information about quitting smoking, downloadable smoking cessation materials, podcasts, websites, helplines, and more. FOLLOW UP PLAN: Incision: [x] Your artie need to be removed on 11/13/2021. You can get them removed by coming into our office, PCP office, or at rehab. a Appointments: Please follow up in the Neurosurgery Clinic in 4-6 weeks. Please call the Neurosurgery Office at [phone] if you do not receive a scheduled appointment within two weeks. Your follow-up appointment will be with: [x] Dr. Schumacher Follow-up Imaging: [x] XR - Cervical HOW TO REACH NEUROSURGERY Office Hours: Tuesday through Tuesday, 8am-5pm. Call . On weekends or after office hours: Call [phone] and ask the dust mill operator to page the Neurosurgery Resident/Advanced Practice Provider sales promotion director. IMPORTANT PHONE NUMBERS: Outpatient Nurse (Karen Belle) Inpatient Nurses Neurosurgical Resident/Advanced Practice Provider On-Call (after 5pm or before 8am) Neurosurgery offices (Tuesday through Tuesday between 8am-5pm): Adult Neurosurgery Dr. Remy Green Pediatric Neurosurgery Dr. Cassidy Funes Advanced Practice Providers Prudence Heaton, Nurse Practitioner (outpatient) Cheryl Patel, Physician Labor/Excavator (inpatient) Mabel Metcalf, Nurse Practitioner (inpatient) Brandi Chiu, Physician Labor/Excavator (inpatient) Brandi Benavides, Physician Labor/Excavator (inpatient) Karen Barksdale, Nurse Practitioner (outpatient: vascular) Amanda Mendez, Physician Labor/Excavator (outpatient: spine) David Herring, Nurse Practitioner (inpatient/outpatient) Freddy Dolan, Physician Labor/Excavator (outpatient) Margo Almodovar, Nurse Practitioner (outpatient: neuro-oncology) [...] Sustained Release 24 hrIndications:Coronary artery disease involving [place] coronary artery of [place] heart without angina pectoris TAKE ONE (1) TABLET BY MOUTH EVERY DAY 28 tablet 02/17/2021 01/18/2022 Ventolin HFA 90 mcg/actuation HFA Aerosol InhalerIndications: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 All belongings [...] General Information Jeannie Rico 1960 Medicare Number: [id number] Transport Date: 11/04/21 (PCS is valid for round trips on this date and for all repetitive trips in the 60-day range as noted below.) Origin: [facility] Destination: [facility], [place] Is the patient's stay covered under [...] van (i.e. seated during transport, without medical director of hospice or monitoring?): No 4) In addition to [...] ambulance transport. Parvin Barksdale MSN-Ed, RN ACM ux designer Office of Care Management Pager #[phone] * Kanu Roberts RN - 11/04/2021 11:23 [...] AM EDTSummary: Discharge Note Office of Care Management/Nutrition Partner Patient Name: Jeannie Rico : 1960 Patient has been offered an acute rehab bed at [facility] for today, 11/04/21 [facility] arranged for a 1530 transport. Ambulance will need: Medicare ambulance form completed and signed (MD or Wrapper Sheeter RN/BREAKDOWN PERSON) Copy of patient demographics [place] [facility] D[place]/DNI order, if active No MD to MD report necessary Please call Nursing Report to , ask for counselling psychologist. Info to accompany patient: Copies of Medication Administration Records and IV sheets for past 10 days. Plan: Nutrition Partner will be available to the patient and Wrapper Sheeter-RN and/or Social Workerfor further assistance. Patient will be [facility] to: [facility] Jeremy Pearson, Nutrition Partner * Amelie Howell OTA - 11/04/2021 9:37 [...] ?? Safety awareness: impulsive ?? Vision:corrective lenses multimedia services manager ?? minimal vision R eye ?? Strength [...] Therapy Rehabilitation Department SRUTHI Tomas Pager # [phone] Patient status, treatment interventions, and goals discussed with student. I am in agreement with all details and associated flowsheet rows as documented and was present for all aspects of the patient treatment session. * Darby Cruz MD - 11/04/2021 9:04 AM EDT Medicine Consults Progress Note ID: Ms. eJannie Rico is a ??61 y.o.??female??h/o CAD s/p [...] Procedure Component Value Units Date/Time COVID-19 PCR [[id number]] Collected: 11/02/21 1615 Lab Status: Final result [...] using the Simplexa COVID-19 Direct Assay by [employer] as authorized by the FDA issued [...] Department of Pathology and Laboratory Medicine at [facility], certified under the Clinical Laboratory Improvement Amendments [...] fact sheets at the following FDA website: https://www.fda.gov/medical-devices/ugstyolbrbf-zvsnvto-5103-foxdz-94-tddqkdrnl- vke-elzyxodheamuec-plkpolu-devices/hedzd-ssvkdibhzmh-wgqh SARS-CoV-2 Source RFID SYSTEMS ENGINEER Swab COVID-19 PCR [[id number]] Collected: 10/27/21 1132 Lab Status: Final result [...] diagnosis of COVID-19 is performed using the [employer] m SARS-CoV-2 Assay as authorized by the FDA Emergency Use Authorization (EUA). This EUA assay is intended for In-vitro Diagnostic (IVD) use with respiratory specimens such as nasopharyngeal swabs collected from individuals during the acute phase of infection. This assay is performed based on the instructions for use provided by [employer] and additional guidance provided by CDC and FDA. Testing is performed in the Clinical [employer] and Advanced Technology Laboratory within the Department of Pathology and Laboratory Medicine at [facility], certified under the Clinical Laboratory Improvement Amendments [...] fact sheets at the following FDA website: https://www.fda.gov/medical-devices/lbunuhsjqcg-ladyyji-6766-ikwdc-99-nzfdtexko- uqc-weoskfeqpyonqq-vknhpeq-devices/thffp-jwmywicjvww-btqs SARS-Cov-2 RNA Source RFID SYSTEMS ENGINEER Swab Diagnostic Studies: Results for orders placed [...] have questions please contact the health career placement services counselor that requested your imaging first. Head wo [...] have questions please contact the health career placement services counselor that requested your imaging first. Electronically signed by: Janie Aguilar MD, [facility] ([phone]), at 11/02/2021 12:47 AM XR Chest PA [...] have questions please contact the health career placement services counselor that requested your imaging first. Electronically signed by: Tahira Medrano MD, [facility] ([phone]), at 11/02/2021 11:12 AM Inpatient Medications: Scheduled [...] changes occur or new questions arise, page [phone]. Case discussed with Dr. Adal Trinidad. 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 [...] RNSARIKA.Patient reported she would go to the [facility] facility.She reported that the HCRS staff had told her they would be checking on her in the home while she was at Rehab which has made the decision easier. Kimberly Lee BREAKDOWN PERSON,[facility] [id number] * Kanu Roberts RN - 11/03/2021 [...] and has home PT and mobile home installer services. Bathroom Set-up: tub shower with seat [...] Billing Code: functional mobility ANDRES NINO PT Pager:[phone] Physical Therapy Inpatient Rehabilitation Department * Kimberly [...] John King and her Casemanager Jodie at [facility] out of [place].Her team has been callingto check in on her while she has been Hospitalized.Patient reports she is on MH medications and hasnot had any side effects from the medications that she can not tolerate at this time.Patient ststesher has MH struggles also and [facility] will be checking on him while she is I rehab for a couple of weeks. Kimberly DIOR,[facility] [id number] * Amelie Howell, MORTAR MIXER - 11/03/2021 9:47 AM EDT Occupational Therapy [...] ?? Safety awareness: impulsive ?? Vision:corrective lenses multimedia services manager ?? minimal vision R eye ?? Strength and ROM: ?? Pt strength and ROM in RUE improved 4/5 strength with report of improvement in sensation ?? Endurance:fair ?? Vitals: pt reported feeling lightheaded following sup>sit, BP taken: 109/68. ?? Pt oxygen found not to be turned on, this typewriter ribbon winder placed pt on 2 L. VSS through [...] Occupational Therapy Rehabilitation Department Amelie NEGRO Pager #[phone] Patient status, treatment interventions, and goals discussed [...] Procedure Component Value Units Date/Time COVID-19 PCR [[id number]] Collected: 11/02/21 1615 Lab Status: Final result [...] using the Simplexa COVID-19 Direct Assay by [employer] as authorized by the FDA issued [...] Department of Pathology and Laboratory Medicine at [facility], certified under the Clinical Laboratory Improvement Amendments [...] fact sheets at the following FDA website: https://www.fda.gov/medical-devices/xoijwqpftqh-vbwpoxf-8244-qezus-70-cosrzdqsi- ars-hrrnlxmiragors-fwrtmph-devices/encxp-favqkaevnpw-eptp SARS-CoV-2 Source RFID SYSTEMS ENGINEER Swab COVID-19 PCR [[id number]] Collected: 10/27/21 1132 Lab Status: Final result [...] diagnosis of COVID-19 is performed using the Parad[employer] m SARS-CoV-2 Assay as authorized by the FDA Emergency Use Authorization (EUA). This EUA assay is intended for In-vitro Diagnostic (IVD) use with respiratory specimens such as nasopharyngeal swabs collected from individuals during the acute phase of infection. This assay is performed based on the instructions for use provided by [employer] and additional guidance provided by CDC and FDA. Testing is performed in the Clinical [employer] and Advanced Technology Laboratory within the Department of Pathology and Laboratory Medicine at [facility], certified under the Clinical Laboratory Improvement Amendments [...] fact sheets at the following FDA website: https://www.fda.gov/medical-devices/brlcvzhodyp-eshnicj-9146-rehjl-28-jpfveudlm- raw-bsmmqasfegnlcj-ikuoxki-devices/bugyk-nxphzwovpln-gorr SARS-Cov-2 RNA Source RFID SYSTEMS ENGINEER Swab Diagnostic Studies: Results for orders placed [...] have questions please contact the health career placement services counselor that requested your imaging first. Head wo [...] have questions please contact the health career placement services counselor that requested your imaging first. Electronically signed by: Janie Aguilar MD, [facility] ([phone]), at 11/02/2021 12:47 AM XR Chest PA [...] have questions please contact the health career placement services counselor that requested your imaging first. Electronically signed by: Tahira Medrano MD, [facility] ([phone]), at 11/02/2021 11:12 AM Inpatient Medications: Scheduled [...] Dr. Adal Trinidad. Associated attestation - Adal Trindiad MD - 11/03/2021 4:27 PM EDT Medicine [...] and has home PT and mobile home installer services. Bathroom Set-up: tub shower with seat [...] Billing Code: functional mobility ANDRES NINO, PT Pager:[phone] Physical Therapy Inpatient Rehabilitation Department * Parvin Barksdale RN - 11/02/2021 10:28 AM EDT Based on discussions with the multi-disciplinary healthcare team, the patient would benefit from acute/swing level of care at discharge. ?? I have met with the Patient to discuss discharge planning needs. I have provided the [facility], Office of Care Management letter from the Gas Pump Attendant pertaining to rehab referrals. I have also provided a letter describing our affiliations within the [facility] and educatedthem about their right to choose where referrals are. ?? Provided patient with [facility] Star Quality Rating for SNF, LTAC [...] requested referrals to: 1. [facility] [address] [place] [address] ?? 2. [facility] Acute Rehabilitation and Sub-Acute (Swing) Rehab Levels of Care [address] [place] [address] ?? 3. [facility] (Swing) ([facility]) [address] [place] [address] ?? PHONE: [phone] FAX: [phone] ?? Expected date of discharge: 11/03/21 Has patient received the COVID vaccine: Yes Booster: Yes Does patient have COVID vaccine card: Yes Copy of Card Obtained: No Note routed to Nutrition Partner who will communicate referrals to facilities and provide any required information. Parvin Barksdale MSN-Ed, RN ACM ux designer Office of Care Management Pager #[phone] * Earlene Lee RN - 11/02/2021 12:14 AM EDT Patient desated to 70s on 3l NC o2, on 4L o2 NC, sat is 94%. Provider aware. Patient had a ct head and neck as her RLE was 2/5 strength at bedtime, and family was concerned about patient's shorter responses and confusion, though was AOx4 for this typewriter ribbon winder's check of orientationat bedtime. Provider aware. * [...] 17.4) performed by Campos Schumacher MD at [facility] MAIN OR PRO DUDLEY W/O FACETEC FORAMOT/DSKC 1/ VRT SEG, CERVICAL N/A 10/30/2021 LAMINECTOMY, CX W/EXPLOR , W/O FACETECTOMY, 1 OR 2 SEGMENTS (WRVU 17.61) performed by Campos Schumacher MD at [facility] MAIN OR PRO POSTERIOR SEGMENTAL INSTRUMENTATION 3-6 VRT SEG N/A 10/30/2021 POST SPINAL INSTRUMENTATION, 3-6 VERTEBRA, NON SEGMENTAL (WRVU 12.56) performed by Campos Schumacher MD at [facility] MAIN OR PRO UPPER GI ENDOSCOPY, BIOPSY N/A 12/03/2015 EGD WITH BIOPSY performed by Ken Sanders MD at [facility] ENDOSCOPY PRO UPPER GI ENDOSCOPY, BIOPSY N/A 09/19/2018 UPPER GASTROINTESTINAL ENDOSCOPY,WITH BIOPSY SINGLE OR MULTIPLE (WRVU 2.49) performed by Tyron Mercado MD at [facility] ENDOSCOPY TONSILLECTOMY UPPER GI ENDOSCOPY, EXAM 12/04/2010 UPPER GI ENDOSCOPY performed by DEE WRIGHT at [facility] ENDOSCOPY Social History: Home set-up: Pt lives with he in an apt with 3 cats. is home, and has home PT and mobile home installer services. Bathroom Set-up: tub shower with seat [...] 54 Billing Code: miles NINO, PT Pager: [phone] Physical Therapy Inpatient Rehabilitation Department * Pham [...] 17.4) performed by Campos Schumacher MD at [facility] MAIN OR ??? PRO DUDLEY W/O FACETEC FORAMOT/DSKC 1/2 VRT SEG, CERVICAL N/A 10/30/2021 LAMINECTOMY, CX W/EXPLOR , W/O FACETECTOMY, 1 OR 2 SEGMENTS (WRVU 17.61) performed by Campos Schumacher MD at [facility] MAIN OR ??? PRO POSTERIOR SEGMENTAL INSTRUMENTATION 3-6 VRT SEG N/A 10/30/2021 POST SPINAL INSTRUMENTATION, 3-6 VERTEBRA, NON SEGMENTAL (WRVU 12.56) performed by Campos Schumacher MD at [facility] MAIN OR ??? PRO UPPER GI ENDOSCOPY, BIOPSY N/A 12/03/2015 EGD WITH BIOPSY performed by Ken Sanders MD at [facility] ENDOSCOPY ??? PRO UPPER GI ENDOSCOPY, BIOPSY N/A 09/19/2018 UPPER GASTROINTESTINAL ENDOSCOPY,WITH BIOPSY SINGLE OR MULTIPLE (WRVU 2.49) performed by Tyron Mercado MD at [facility] ENDOSCOPY ??? TONSILLECTOMY ??? UPPER GI ENDOSCOPY, EXAM 12/04/2010 UPPER GI ENDOSCOPY performed by DEE WRIGHT at [facility] ENDOSCOPY Social History: Patient lives with [...] deficits Vision & Perception: ?? corrective lenses multimedia services manager ?? minimal vision R eye Communication: WFL [...] and measurable assessment of functional outcome. Pager: [phone] Pham Shannon OT 11/01/2021 Occupational Therapy Rehabilitation [...] eval as able. Kenna Diane, PT Pager: [phone] Physical Therapy Inpatient Rehabilitation Department * Moe [...] for tomorrow to see as appropriate. Pager: [phone] MOE CANTRELL OT 10/31/2021 Occupational Therapy Rehabilitation [...] BIOPSY performed by Ken Sanders MD at [facility] ENDOSCOPY ??? PRO UPPER GI ENDOSCOPY, BIOPSY N/A 09/19/2018 UPPER GASTROINTESTINAL ENDOSCOPY,WITH BIOPSY SINGLE OR MULTIPLE (WRVU 2.49) performed by Tyron Mercado MD at [facility] ENDOSCOPY ??? TONSILLECTOMY ??? UPPER GI ENDOSCOPY, EXAM 12/04/2010 UPPER GI ENDOSCOPY performed by DEE RWIGHT at [facility] ENDOSCOPY Medications: No current facility-administered medications [...] tablet 1 ??? Miscellaneous Medical Supply [facility] 1 walker on wheels [...] 30 gauge Misc 1 each by [facility].(Non-Drug; Combo Route) route daily. [...] - 10/30/2021 12:50 PM EDT NEURODIAGNOSTIC LABORATORY [facility] INTRAOPERATIVE MONITORING REPORT Name: Jeannie Rico [...] and abductor hallucis brevis recordings. CPT Codes: 13473 (EEG); 26615 (EMG 2 limbs); 33895 (EMG limited x2) 04995 (TOF, 4 nerves); 87609 (upper & lower MEP); 90889 (upper and lower SSEP bilateral); 85478 (IOM, 7 units); 52852 (IOM, 2 units). Intraoperative Neurophysiologic Monitoring was [...] Follow-up Care: Contact information for follow-up [facility] Admissions - [address] [facility] [address] Transportation: Wheelchair van/Ambulance? Yes Ambulance transportation is [...] MEDICAID [place] Prescription Coverage: Yes Preferred Pharmacy: [facility] [place] - [place], [place] - [address] [facility] [address] [facility] [address] [facility] [place] [place] [facility] [address] [facility] [address] [facility] [address] [facility] [address] This plan was formulated with input from patient, pt and family (please identify family/friend involved if applicable) and team. All are in agreement with plan. Parvin BATEMAN, RN Pager #[phone] * Plan of Care - Sarah Hanson [...] 30 gauge Misc 1 each by [facility].(Non-Drug; Combo Route) route daily. [...] 17.4) performed by Campos Schumacher MD at [facility] MAIN OR ??? PRO DUDLEY W/O FACETEC FORAMOT/DSKC 07/26 VRT SEG, CERVICAL N/A 10/30/2021 LAMINECTOMY, CX W/EXPLOR , W/O FACETECTOMY, 1 OR 2 SEGMENTS (WRVU 17.61) performed by Campos Schumacher MD at [facility] MAIN OR ??? PRO POSTERIOR SEGMENTAL INSTRUMENTATION 3-6 VRT SEG N/A 10/30/2021 POST SPINAL INSTRUMENTATION, 3-6 VERTEBRA, NON SEGMENTAL (WRVU 12.56) performed by Campos Schumacher MD at [facility] MAIN OR ??? PRO UPPER GI ENDOSCOPY, BIOPSY N/A 12/03/2015 EGD WITH BIOPSY performed by Ken Sanders MD at [facility] ENDOSCOPY ??? PRO UPPER GI ENDOSCOPY, BIOPSY N/A 09/19/2018 UPPER GASTROINTESTINAL ENDOSCOPY,WITH BIOPSY SINGLE OR MULTIPLE (WRVU 2.49) performed by Tyron Mercado MD at [facility] ENDOSCOPY ??? TONSILLECTOMY ??? UPPER GI ENDOSCOPY, EXAM 12/04/2010 UPPER GI ENDOSCOPY performed by DEE WRIGHT at [facility] ENDOSCOPY Family History: Mother: from lung cancer at age 64; COPD, smoker, congestive heart failure Father: HTN, DM, Kidney Cancer, Skin Cancer; from [place] at 76 Maternal Grandmother - at age 35 y/o due to ovarian Social History: Tobacco: not a current smoker; prior 3 packs a day smoker - quit 3 months prior Etoh: none Illicits: uses medical marijuana Living Situation: Lives in [place], [place] Occupation: On disability due to mental [...] have questions please contact the health career placement services counselor that requested your imaging first. Head wo [...] have questions please contact the health career placement services counselor that requested your imaging first. Electronically signed by: Janie Aguilar MD, [facility] ([phone]), at 11/02/2021 12:47 AM XR Chest PA [...] have questions please contact the health career placement services counselor that requested your imaging first. Electronically signed by: Tahira Medrano MD, [facility] ([phone]), at 11/02/2021 11:12 AM Assessment: Ms. Jeannie [...] MD Internal Medicine, PGY3 DINORA Pager # [phone] Associated attestation - Adal Trinidad MD - [...] TBD pending rehab evals and hospital course. BREAKDOWN PERSON support for PMH PTSD, bipolar DO and anxiety. Care Management will continue to follow and assist with discharge planning and coordination of care as indicated. Anticipated Date of Discharge: 11/04/2021 Parvin BATEMAN, RN Pager #[phone] * Initial Assessments - Parvin Barksdale RN - 10/31/2021 1:55 PM EDT Office of Care Management Initial Assessment Medical record reviewed. Plan of care and patient status discussed with direct care Registered Nurse and/or Care Team in multidisciplinary rounds. Reason for Hospitalization: spinal surgery Last COVID test: Lab Results Component Value Date COVID19 Not Detected 10/27/2021 [id number] Not Detected 07/03/2020 Present on Admission: ??? Arthrodesis present Hospitalizations Within the Past 30 Days: no previous admission in last 30 days Patient receiving hospital care under IPI- SDP Admission (IP) status. Admission order reviewed. Primary Insurance on file: MEDICARE Secondary Insurance on file:@ Primary care provider on file: Hoang Castellanos, CASING WRINGER OPERATOR [phone] Pharmacy: [facility] [place] - [place], [place] - [address] [facility] [address] [place] [address] [facility] - [place], [place] [address] [facility] [address] Advance Care Planning: Attempt Cardiopulmonary Resuscitation - Inpatient Received -Advanced Directive: Yes, on file Who is your DPOA-HC?: Sibling Current Functional Ability: Completely Dependent Functional Status Prior to Admission: unable to assess Home Environment: Others in the home: spouse. Current Living Arrangements: home/apartment/condo. Accessibility Concerns: . Current DME: unable to assess [address] [place] [address] Social & Family Supports: All names listed below confirmed with patient as current and correct Extended Emergency Contact Information Primary Emergency Contact: Kyra Mittal Address: [address] [place] Relation: Sibling Secondary Emergency Contact: jodie espinoza Mobile Relation: Construction Teacher Current Care Provided by: unable to assess [...] TBD pending hospital course and rehab evals. BREAKDOWN PERSON consult requested for emotional support r/t PMH PTSD, bipolar DO and anxiety. Registered Nurse Wrapper Sheeter / Medical Record Librarians Teacher will continue to follow patient???s progress and remain available if situation changes for coordination of care, psychosocial support and/or discharge planning. Office of Care Management Parvin Barksdale MSN, RN Pager #[phone] * Plan of Care - Irasema Calix [...] Operative Note Patient Name: Jeannie Rico : [id number] MR#: [id number] Case Date: 10/30/2021 Surgeon: Surgeon(s) and Role: [...] Lu MD - 10/30/2021 10:44 AM EDT [facility] Operative Note Patient Name: Jeannie Rico : [id number] MR#: [id number] Case Date: 10/30/2021 Surgeon: Surgeon(s) and Role: [...] C6, which was again confirmed by fluoroscopy. Cigarette Machines Mechanic holes for our screws were then fashioned bilaterally along the lateral masses of C5 and C6 using a modified Magerl technique with insertion point slightly inferior and medial to the midpoint ofthe lateral masses first using the Souqalmalas Cirilo C1 drill bit for the cortical rim, followed by hand drill, tap, and confirmation with ball tip feeler. The right C6 entry point required redirection to avoid entering the facet space. Once we were satisfied with the jet pilot holes bone wax was placed in thepilot holes. Attention was then given to laminectomy. The Souqalmalas Cirilo drill M8 bit was used to [...] healing. Attention was then given to closure. Minerva irrigation was then performed and meticulous hemostasis [...] then flipped onto the recovery bed, Garsia geography head removed, and extubated without incident. At [...] 11/02/2021 7:51 PM EDT RAPID COVID-19 PCR ([facility]) Routine 11/02/2021 4:15 PM EDT POCT [...] W/O Facetec Foramot/Dskc 07/26 Vrt Seg, Cervical ([id number]) 10/30/2021 8:44 AM EDT C 5/6 and 6/7 ACDF MODIFIER,POSTERIOR CERVICAL INFINITY MEDTRONIC 10/30/2021 8:44 AM EDT C 5/6 and 6/7 ACDF Posterior Segmental Instrumentation 3-6 Vrt Seg ([id number]) 10/30/2021 8:44 AM EDT C 5/6 and 6/7 ACDF Arthrodesis, Post/Posterolat Tq, Sngle Interspace; Cervical Below C2 Segmnt ([id number]) 10/30/2021 8:44 AM EDT C 5/6 and 6/7 ACDF POCT GLUCOSE Routine 10/30/2021 8:11 AM EDT documented in this encounter Results * POCT Glucose (11/04/2021 11:50 AM EDT) Glucose, POC 97 65 - 199 mg/dL [facility] Comment: Supplemental ranges: <140 mg/dL before meals <180 mg/dL all other times of the day Blood 11/04/2021 11:5 0 AM EDT 11/04/2021 11:50 AM EDT Campos Schumacher MD POINT OF CARE TEST O ALYSON [facility] [place] [address] * POCT Glucose (11/04/2021 7:41 AM EDT) Glucose, POC 133 65 - 199 mg/dL [facility] Comment: Supplemental ranges: <140 mg/dL before meals <180 mg/dL all other times of the day Blood 11/04/2021 7:41 AM EDT 11/04/2021 7:41 AM EDT Campos Schumacher MD POINT OF CARE TEST O ALYSON Performing Organization Address [facility]/ZIP Co de Phone Number [facility] [place] [address] * POCT Glucose (11/04/2021 3:56 AM EDT) Glucose, POC 85 65 - 199 mg/dL [facility] Comment: Supplemental ranges: <140 mg/dL before meals <180 mg/dL all other times of the day Blood 11/04/2021 3:56 AM EDT 11/04/2021 3:56 AM EDT Campos Schumacher MD POINT OF CARE TEST O ALYSON Performing Organization Address City/[facility]/ZIP Co de Phone Number [facility] [place] [address] * POCT Glucose (11/03/2021 11:46 PM EDT) Glucose, POC 98 65 - 199 mg/dL [facility] Comment: Supplemental ranges: <140 mg/dL before meals <180 mg/dL all other times of the day Blood 11/03/2021 11:4 6 PM EDT 11/03/2021 11:46 PM EDT Campos Schumacher MD POINT OF CARE TEST O JEREMYERAKE [facility] [place] [address] * POCT Glucose (11/03/2021 7:56 PM EDT) Glucose, POC 95 65 - 199 mg/dL [facility] Comment: Supplemental ranges: <140 mg/dL before meals <180 mg/dL all other times of the day Blood 11/03/2021 7:56 PM EDT 11/03/2021 7:56 PM EDT Campos Schumacher MD POINT OF CARE TEST O JEREMYERAKE Performing Organization Address City/[facility]/ZIP Co de Phone Number [facility] [place] [address] * (ABNORMAL) POCT Glucose (11/03/2021 3:15 PM EDT) Glucose, POC 216(H) 65 - 199 mg/dL [facility] Comment: Supplemental ranges: <140 mg/dL before meals <180 mg/dL all other times of the day Blood 11/03/2021 3:15 PM EDT 11/03/2021 3:15 PM EDT Campos Schumacher MD POINT OF CARE TEST O RDERABLES Performing Organization Address City/[facility]/ZIP Co de Phone Number [facility] [place] [address] * (ABNORMAL) POCT Glucose (11/03/2021 12:03 PM EDT) Glucose, POC 307(H) 65 - 199 mg/dL [facility] Comment: Supplemental ranges: <140 mg/dL before meals <180 mg/dL all other times of the day Blood 11/03/2021 12:0 3 PM EDT 11/03/2021 12:03 PM EDT Campos Schumacher MD POINT OF CARE TEST O ALYSON Performing Organization Address [facility]/ZIP Co de Phone Number [facility] [place] [address] * POCT Glucose (11/03/2021 7:44 AM EDT) Glucose, POC 110 65 - 199 mg/dL [facility] Comment: Supplemental ranges: <140 mg/dL before meals <180 mg/dL all other times of the day Blood 11/03/2021 7:44 AM EDT 11/03/2021 7:44 AM EDT Campos Schumacher MD POINT OF CARE TEST O ALYSON Performing Organization Address [facility] Co de Phone Number [facility] [place] [address] * POCT Glucose (11/03/2021 4:13 AM EDT) Glucose, POC 103 65 - 199 mg/dL [facility] Comment: Supplemental ranges: <140 mg/dL before meals <180 mg/dL all other times of the day Blood 11/03/2021 4:13 AM EDT 11/03/2021 4:13 AM EDT Campos Schumacher MD POINT OF CARE TEST O ALYSON Performing Organization Address [facility]/ZIP Co de Phone Number [facility] [place] [address] * POCT Glucose (11/03/2021 12:03 AM EDT) Glucose, POC 100 65 - 199 mg/dL [facility] Comment: Supplemental ranges: <140 mg/dL before meals <180 mg/dL all other times of the day Blood 11/03/2021 12:0 3 AM EDT 11/03/2021 12:03 AM EDT Campos Schumacher MD POINT OF CARE TEST O RDERAKE [facility] [place] [address] * POCT Glucose (11/02/2021 7:51 PM EDT) Pathologist [facility] Glucose, POC 116 65 - 199 mg/dL [facility] Comment: Supplemental ranges: <140 mg/dL before meals <180 mg/dL all other times of the day Blood 11/02/2021 7:51 PM EDT 11/02/2021 7:51 PM EDT Campos Schumacher MD POINT OF CARE TEST O ALYSON Performing Organization Address [facility] Co de Phone Number [facility] [place] [address] * COVID-19 PCR (11/02/2021 4:15 PM EDT) [facility] SARS-CoV-2 RNA (Rapid) Not Detected Not [...] using the Simplexa COVID-19 Direct Assay by [employer] as authorized by the FDA issued [...] Department of Pathology and Laboratory Medicine at [facility], certified under the Clinical Laboratory Improvement Amendments [...] fact sheets at the following FDA website: https://www.fda.gov/medical-devices/alqdhyqvhbw-rqtbttg-1449-dylzp-29-hkgrhgird- use-a kzxnekttsvwxe-rvsusqm-xcxlbhs/zqhug-gkosqriyxlf-jcgv SARS-CoV-2 Source RFID SYSTEMS ENGINEER Swab DE [facility] Nasopharyngeal Swab 11/03/19 4:15 PM EDT 11/02/2021 5:10 PM EDT Comment:Symptoms->Surveillan ce Narrative Resulting Agency Comment Spec In Lab Campos Schumacher MD MICROBIOLOGY - GENER AL ORDERABLES [facility] [place] [address] * POCT Glucose (11/02/2021 3:35 PM EDT) Glucose, POC 100 65 - 199 mg/dL [facility] Comment: Supplemental ranges: <140 mg/dL before meals <180 mg/dL all other times of the day Blood 11/02/2021 3:35 PM EDT 11/02/2021 3:35 PM EDT Campos Schumacher MD POINT OF CARE TEST O ALYSON Performing Organization Address City/[facility]/ZIP Co de Phone Number [facility] [place] [address] * POCT Glucose (11/02/2021 11:57 AM EDT) Glucose, POC 77 65 - 199 mg/dL [facility] Comment: Supplemental ranges: <140 mg/dL before meals <180 mg/dL all other times of the day Blood 11/02/2021 11:5 7 AM EDT 11/02/2021 11:57 AM EDT Campos Schumacher MD POINT OF CARE TEST O ALYSON Performing Organization Address [facility] Co de Phone Number [facility] [place] [address] * XR Chest PA & Lateral (Generic) [...] have questions please contact the health career placement services counselor that requested your imaging first. ? Narrative [...] who have questions please contactthe health career placement services counselor that requested your imaging first. Electronically signed by: Tahira Medrano MD, [facility]([phone]), at 11/02/2021 11:12 AM Campos Schumacher MD IMG DX ORDERABLES * POCT Glucose (11/02/2021 7:20 AM EDT) Glucose, POC 97 65 - 199 mg/dL [facility] Comment: Supplemental ranges: <140 mg/dL before meals <180 mg/dL all other times of the day Blood 11/02/2021 7:20 AM EDT 11/02/2021 7:20 AM EDT Campos Schumacher MD POINT OF CARE TEST O RDERABLES Performing Organization Address City/[facility]/ZIP Co de Phone Number [facility] [place] [address] * Duplex Study for DVT, Bilat legs (11/02/2021 7:15 AM EDT) VB Text Report Department: Vascular Surgery Lab Patient: [id number] (JEANNIE RICO) CPT: 76923 Referring Physician: CAMPOS SCHUMACHER ?? Indications: New [...] Schumacher MD VASCULAR ORDERABLES Performing Organization Address [facility]/ZIP Co de Phone Number [facility] * POCT Glucose (11/02/2021 4:02 AM EDT) Glucose, POC 90 65 - 199 mg/dL [facility] Comment: Supplemental ranges: <140 mg/dL before meals <180 mg/dL all other times of the day Blood 11/02/2021 4:02 AM EDT 11/02/2021 4:02 AM EDT Campos Schumacher MD POINT OF CARE TEST O RDLEOBARDO Performing Organization Address [facility] Co de Phone Number [facility] [place] [address] * POCT Glucose (11/01/2021 11:59 PM EDT) Glucose, POC 97 65 - 199 mg/dL [facility] Comment: Supplemental ranges: <140 mg/dL before meals <180 mg/dL all other times of the day Blood 11/01/2021 11:5 9 PM EDT 11/01/2021 11:59 PM EDT Campos Schumacher MD POINT OF CARE TEST O ALYSON Performing Organization Address [facility] Co de Phone Number [facility] [place] [address] * CT Head wo & Multiphase CTA [...] have questions please contact the health career placement services counselor that requested your imaging first. ? Electronically signed by: Janie Aguilar MD, [facility] ([phone]), at 11/02/2021 12:47 AM Narrative 11/02/2021 12:47 AM EDT EXAMINATION: CT HEAD WO & MULTIPHASE CTA HEAD/NECK (THROMBECTOMY PROTOCOL) CLINICAL HISTORY: cva sx. neuro feficiets TECHNIQUE: CT of head without intravenous contrast. Multiphase CTA of the carotids and cher-ae heights of [place] is performed after the administration [...] Bilateral vertebral arteries, basilar artery, bilateral marine diesel mechanic, and bilateral posterior communicating arteries are patent [...] intravenous contrast. Multiphase CTA of the carotidsand cher-ae heights of [place] is performed after the administration [...] Bilateral vertebral arteries, basilar artery, bilateral marine diesel mechanic, andbilateral posterior communicating arteries are patent without evidence ofhemodynamically significant stenosis, aneurysm or dissection. Diminutive right [id number]. No perfusion asymmetry on the delayed phase [...] who have questions please contactthe health career placement services counselor that requested your imaging first. Electronically signed by: Janie Aguilar MD, [facility]([phone]), at 11/02/2021 12:47 AM Campos Schumacher MD IMG CT ORDERABLES * POCT Glucose (11/01/2021 7:50 PM EDT) Glucose, POC 91 65 - 199 mg/dL [facility] Comment: Supplemental ranges: <140 mg/dL before meals <180 mg/dL all other times of the day Blood 11/01/2021 7:50 PM EDT 11/01/2021 7:50 PM EDT Campos Schumacher MD POINT OF CARE TEST O RDERAKE Performing Organization Address City/[facility]/ZIP Co de Phone Number [facility] [place] [address] * POCT Glucose (11/01/2021 4:01 PM EDT) Glucose, POC 110 65 - 199 mg/dL [facility] Comment: Supplemental ranges: <140 mg/dL before meals <180 mg/dL all other times of the day Blood 11/01/2021 4:01 PM EDT 11/01/2021 4:01 PM EDT Campos Schumacher MD POINT OF CARE TEST O JEREMYERAKE [facility] [place] [address] * POCT Glucose (11/01/2021 11:56 AM EDT) Glucose, POC 119 65 - 199 mg/dL [facility] Comment: Supplemental ranges: <140 mg/dL before meals <180 mg/dL all other times of the day Blood 11/01/2021 11:5 6 AM EDT 11/01/2021 11:56 AM EDT Campos Schumacher MD POINT OF CARE TEST O ALYSON Performing Organization Address City/[facility]/ZIP Co de Phone Number [facility] [place] [address] * POCT Glucose (11/01/2021 7:52 AM EDT) Glucose, POC 108 65 - 199 mg/dL [facility] Comment: Supplemental ranges: <140 mg/dL before meals <180 mg/dL all other times of the day Blood 11/01/2021 7:52 AM EDT 11/01/2021 7:52 AM EDT Campos Schumacher MD POINT OF CARE TEST O ALYSNO Performing Organization Address City/[facility]/ZIP Co de Phone Number [facility] [place] [address] * POCT Glucose (11/01/2021 3:09 AM EDT) Glucose, POC 117 65 - 199 mg/dL [facility] Comment: Supplemental ranges: <140 mg/dL before meals <180 mg/dL all other times of the day Blood 11/01/2021 3:09 AM EDT 11/01/2021 3:09 AM EDT Campos Schumacher MD POINT OF CARE TEST O ALYSON Performing Organization Address City/[facility] Co de Phone Number [facility] [place] [address] * POCT Glucose (11/01/2021 12:37 AM EDT) Glucose, POC 134 65 - 199 mg/dL [facility] Comment: Supplemental ranges: <140 mg/dL before meals <180 mg/dL all other times of the day Blood 11/01/2021 12:3 7 AM EDT 11/01/2021 12:37 AM EDT Campos Schumacher MD POINT OF CARE TEST O ALYSON Performing Organization Address City/[facility]/ZIP Co de Phone Number [facility] [place] [address] * POCT Glucose (10/31/2021 8:17 PM EDT) Glucose, POC 109 65 - 199 mg/dL [facility] Comment: Supplemental ranges: <140 mg/dL before meals <180 mg/dL all other times of the day Blood 10/31/2021 8:17 PM EDT 10/31/2021 8:17 PM EDT Campos Schumacher MD POINT OF CARE TEST O ALYSON Performing Organization Address [facility]/ZIP Co de Phone Number [facility] [place] [address] * POCT Glucose (10/31/2021 4:16 PM EDT) Glucose, POC 129 65 - 199 mg/dL [facility] Comment: Supplemental ranges: <140 mg/dL before meals <180 mg/dL all other times of the day Blood 10/31/2021 4:16 PM EDT 10/31/2021 4:16 PM EDT Campos Schumacher MD POINT OF CARE TEST O ALYSON Performing Organization Address City/[facility] Co de Phone Number [facility] [place] [address] * (ABNORMAL) pro-Brain Natriuretic Peptide (10/31/2021 12:21 PM EDT) NT-proBNP 428(H) <=124 pg/mL [facility] Blood Venous Draw / Unknown 10/31/2021 12:21 PM EDT 10/31/2021 12:57 PM EDT Narrative Resulting Agency Comment Spec In Lab Cheryl GR CHEMISTRY ORDERAB LES Performing Organization Address [facility] Co de Phone Number [facility] [place] [address] * Troponin (10/31/2021 12:21 PM EDT) [facility] Troponin-T <0.01 0.00 - 0.00 ng/mL [facility] Comment: The 99th percentile for Troponin T is less than 0.01 ng/mL, any detectable cTnT concentration using this assay should be considered elevated. According to the third universal definition of myocardial infarction the following criteria with a clinical presentation consistent with acute myocardial ischemia meets the diagnosis for a myocardial infarction ([place]). Detection of a rise and/or fall of cTnT, with at least one value greater than the 99th percentile (> or = 0.01) and with at least one of the following ?? Symptoms of ischemia ?? New or presumed new significant SZ-canrvao-F wave (ST-T) changes or new left bundle [...] additional sample may be indicated. Reference: [place] Definition of Myocardial Infarction. Journal of the [place] [employer] 2012;60:1581-98 Blood 10/31/2021 12:2 1 PM EDT 10/31/2021 12:32 PM EDT Narrative Resulting Agency Comment Spec In Lab Campos Schumacher MD CHEMISTRY ORDERABLES Performing Organization Address [facility]/ZIP Co de Phone Number [facility] [place] [address] * (ABNORMAL) Basic Metabolic Panel (non-fasting) (10/31/2021 12:21 PM EDT) Glucose 118 65 - 199 mg/dL [facility] Comment:Diabetes: >=200 mg/d L plus symptoms Blood Urea Nitrogen 12 8 - 18 mg/dL [facility] Creatinine 0.74 0.70 - 1.20 mg/dL [facility] Sodium 134(L) 135 - 145 mmol/L [facility] Potassium 4.7 3.5 - 5.0 mmol/L [facility] Comment: Please note: ??Patients with WBC >100,000 may have falsely elevated Potassium levels. ??For accurate Potassium quantification in these patients send serum separator tube (gold top) for subsequent determinations. ??Contact the Clinical Chemistry Laboratory if there are any questions. Chloride 98 98 - 107 mmol/L [facility] Carbon Dioxide 28 22 - 31 mmol/L [facility] Anion Gap 8 5 - 15 mmol/L [facility] Calcium 9.0 8.5 - 10.5 mg/dL [facility] Est Glomerular Filtration Rate 87 >=60 mL/min/1. 73 m?? [facility] [...] In Lab Campos Schumacher MD CHEMISTRY ORDERABLES [facility] [place] [phone] * Phosphorus (10/31/2021 12:21 PM EDT) Phosphorus 4.4 2.5 - 4.5 mg/dL [facility] Blood 10/31/2021 12:2 1 PM EDT 10/31/2021 12:27 PM EDT Narrative Resulting Agency Comment Spec In Lab Campos Schumacher MD CHEMISTRY ORDERABLES Performing Organization Address City/[facility]/ZIP Co de Phone Number [facility] [place] [address] * Magnesium (10/31/2021 12:21 PM EDT) Pathologist [facility] Magnesium 0.78 0.69 - 1.07 mmol/L [facility] Blood 10/31/2021 12:2 1 PM EDT 10/31/2021 12:27 PM EDT Narrative Resulting Agency Comment Spec In Lab Campos Schumacher MD CHEMISTRY ORDERABLES Performing Organization Address City/[facility]/ZIP Co de Phone Number [facility] [place] [address] * EKG 12 Lead (10/31/2021 12:08 PM EDT) Ventricular rate 59 BPM MUSE SYSTEM Atrial Rate 59 BPM MUSE SYSTEM P-R Interval 142 ms MUSE SYSTEM QRS Duration 82 ms MUSE SYSTEM Q-T Interval 408 ms MUSE SYSTEM QTC Calculated (Bezet) 403 ms MUSE SYSTEM Calculated P [place] 9 degrees MUSE SYSTEM Calculated R [place] 27 degrees MUSE SYSTEM Calculated T [place] 11 degrees MUSE SYSTEM INTERPRETATION Sinus bradycardia [...] Glucose, POC 118 65 - 199 mg/dL [facility] Comment: Supplemental ranges: <140 mg/dL before meals <180 mg/dL all other times of the day Blood 10/31/2021 11:5 3 AM EDT 10/31/2021 11:53 AM EDT Campos Schumacher MD POINT OF CARE TEST O RDERABLES Performing Organization Address City/[facility]/ZIP Co de Phone Number [facility] [place] [address] * (ABNORMAL) Differential, Automated (10/31/2021 8:14 AM EDT) Neutrophil % 85.7 % [facility] Neutrophil Absolute 9.06(H) 1.70 - 6.10 x10(3)/mc L [facility] Lymph % 6.3 % [facility] Lymphocytes Abs 0.7(L) 0.9 - 3.2 x10(3)/mc L [facility] Monocyte % 7.1 % [facility] Monocyte Abs 0.8 0.3 - 0.9 x10(3)/mc L [facility] Eos % 0.2 % [facility] Eosinophils Abs 0.0 0.0 - 0.4 x10(3)/mc L [facility] Basophil % 0.3 % [facility] Baso Absolute 0.0 0.0 - 0.1 x10(3)/mc L [facility] Immature Gran % 0.40 % [facility] Comment: Immature granulocytes(IG's)percentage and absolute count will include metamyelocytes, myelocytes, and promyelocytes. Blood smears from CBCs yielding IG's will be scanned manually for concordance. If this scan disagrees with the automated IG or if promyelocytes are noted, a manual differential will be performed. Immature Gran Absolute 0.04 0.00 - 0.04 x10(3)/ L [facility] Blood 10/31/2021 8:14 AM EDT 10/31/2021 8:47 AM EDT Narrative Resulting Agency Comment Spec In Lab Melania Gaxiola MD HEMATOLOGY ORDERAB LES [facility] [place] [address] * (ABNORMAL) Hemogram (10/31/2021 8:14 AM EDT) White Blood Cell 10.6(H) 4.0 - 9.5 x10(3)/[facility] Red Blood Cell 4.26 4.00 - 5.21 x10(6)/[facility] Hemoglobin 13.0 11.7 - 15.5 g/dL [facility] Hematocrit 40.9 35.7 - 45.8 % [facility] Mean Cell Volume 96.0(H) 82.6 - 94.4 fL [facility] Mean Cell Hemoglobin 30.5 27.1 - 32.0 pg [facility] Mean Cell Hemoglobin Concentration 31.8 31.7 - 35.0 g/dL [facility] Platelet 210 145 - 357 x10(3)/ L [facility] RDW Standard Deviation 47.4(H) 37.0 - 46.0 [facility] RDW coefficient of variation 13.2 11.5 - 14.1 % [facility] Mean Platelet Volume 9.8 7.6 - 12.9 [facility] NRBC% auto 0.0 % [facility] NRBC Absolute 0.000 0.000 - 0.000 x10(3)/ L [facility] Blood 10/31/2021 8:14 AM EDT 10/31/2021 8:47 AM EDT Narrative Resulting Agency Comment Spec In Lab Melania Gaxiola MD HEMATOLOGY ORDERAB LES [facility] [place] [address] * POCT Glucose (10/31/2021 7:50 AM EDT) Glucose, POC 111 65 - 199 mg/dL [facility] Comment: Supplemental ranges: <140 mg/dL before meals <180 mg/dL all other times of the day Blood 10/31/2021 7:50 AM EDT 10/31/2021 7:50 AM EDT Campos Schumacher MD POINT OF CARE TEST O RDERAKE Performing Organization Address [facility]/ZIP Co de Phone Number [facility] [place] [address] * POCT Glucose (10/31/2021 5:36 AM EDT) Glucose, POC 116 65 - 199 mg/dL [facility] Comment: Supplemental ranges: <140 mg/dL before meals <180 mg/dL all other times of the day Blood 10/31/2021 5:36 AM EDT 10/31/2021 5:36 AM EDT Campos Schumacher MD POINT OF CARE TEST O ALYSON Performing Organization Address City/[facility]/ZIP Co de Phone Number [facility] [place] [address] * POCT Glucose (10/30/2021 11:28 PM EDT) Glucose, POC 119 65 - 199 mg/dL [facility] Comment: Supplemental ranges: <140 mg/dL before meals <180 mg/dL all other times of the day Blood 10/30/2021 11:2 8 PM EDT 10/30/2021 11:28 PM EDT Campos Schumacher MD POINT OF CARE TEST O RDERAKE Performing Organization Address [facility] Co de Phone Number [facility] [place] [address] * POCT Glucose (10/30/2021 7:50 PM EDT) Glucose, POC 142 65 - 199 mg/dL [facility] Comment: Supplemental ranges: <140 mg/dL before meals <180 mg/dL all other times of the day Blood 10/30/2021 7:50 PM EDT 10/30/2021 7:50 PM EDT Campos Schumacher MD POINT OF CARE TEST O ALYSON Performing Organization Address [facility] Co de Phone Number [facility] [place] [address] * XR Cervical Spine 2 or 3 [...] have questions please contact the health career placement services counselor that requested your imaging first. ? Electronically signed by: [facility] ([phone]), at 10/31/2021 10:23 AM Narrative 10/31/2021 10:23 [...] who have questions please contactthe health career placement services counselor that requested your imaging first. Electronically signed by: YANET GANN [facility] ([phone]),at 10/31/2021 10:23 AM Campos Schumacher MD IMG DX ORDERABLES * POCT Glucose (10/30/2021 3:17 PM EDT) Glucose, POC 103 65 - 199 mg/dL [facility] Comment: Supplemental ranges: <140 mg/dL before meals <180 mg/dL all other times of the day Blood 10/30/2021 3:17 PM EDT 10/30/2021 3:17 PM EDT Campos Schumacher MD POINT OF CARE TEST O ALYSON Performing Organization Address [facility] de Phone Number [facility] [place] [address] * XR Fluoro No Rad <1Hr - OR Use (10/30/2021 1:30 PM EDT) Narrative Dicom, Auditing User - 10/30/2021 2:07 PM EDT This exam is auto-finalizing. No interpretation was done. Campos Schumacher MD IMG FLUORO ORDERABLE S * POCT Glucose (10/30/2021 8:11 AM EDT) Glucose, POC 110 65 - 199 mg/dL [facility] Comment: Supplemental ranges: <140 mg/dL before meals <180 mg/dL all other times of the day Blood 10/30/2021 8:11 AM EDT 10/30/2021 8:11 AM EDT Campos Schumacher MD POINT OF CARE TEST O ALYSON Performing Organization Address [facility] de Phone Number [facility] [place] [address] documented in this encounter Visit Diagnoses Diagnosis [...] Sarah Hanson RN)2020 (Given - Provider: David Byres RN) 0914 (Given - Provider: Ana Damian)2010 [...] Routine documented in this encounter Care Teams Digital Campaign Manager Relationship Specialty Start Date End Date Hoang Castellanos, CASING WRINGER OPERATOR [address] [place] [address] PCP - General Family Medicine 03/12/20 documented as of this encounter
--- OUTSIDE RECORDS SUMMARY | 2024-08-15 13:30 | XMS_ITS | Encounter Summary ---
[place] [address] Care Team Providers Care Fishing Vessel Mate Name Role Phone Hoang Castellanos APRN Primary Care Provider Encounter Details Date Type Department Care Team (Late st Contact Info) Description 10/05/2021 Telephone [place] [address] Tamar Velazquez Social History Tobacco Use Types [...] ASK: TRAVEL ???Have you travelled outside of [place] ([place], [place], [place], [place], [place], [place]) in the past 14 days??? 2. ASK: [...] Transfer patient to the Covid-19 Hotline Number ([phone]) for further instructions. If 'No' to all [...] filedocumented in this encounter Care Teams Fishing Vessel Mate Relationship Specialty Start Date End Date Hoang Castellanos APRN [address] [place] [address] PCP - General Family Medicine 03/12/20 documented as of this encounter
--- OUTSIDE RECORDS SUMMARY | 2024-08-15 13:30 | XMS_ITS | Encounter Summary ---
Author Organization [facility] Address [facility] [place] [address] Care Team Providers Care Heel Stiffener Name Role Phone Hoang Castellanos APRN Primary Care Provider Reason for Referral * Home Health Care (Routine) - Closed Specialty Diagnoses / Procedures Referred By Contdavide t Referred To Contact Physical Therapy Diagnoses Cervicalgia Cervical spinal stenosis Generalized weakness Hoang Castellanos APRN [address] [place] [address] Visiting Nurse[facility] & [address] [address] Referral ID Status Reason Start Date Expiration Date V isits Requested Visits Authorized [id number] Closed Continuity of Care 08/31/2021 02/27/2022 12 12 Encounter Details Date Type Department Care Team (Latest Contact Info) Description 08/31/2021 10:00 AM EST TH Visit (TeleHealth) Primary Care at [facility] [address] [facility] [place] [address] Hoang Castellanos APRN [address] [place] [address] Cervicalgia; Cervical spinal stenosis; Generalized weakness; Anxiety [...] this encounter Progress Notes * Hoang Castellanos, BUTTON SPINDLER - 08/31/2021 10:00 AM EST [facility] Telehealth Encounter Nurse Call: Patient called to [...] who presents for a [facility]. She is having surgery coming [...] office this morning. She was sent to rn first assistant-awaiting inpatient bed to open up. Neck pain Stressful-emotional pain Supposed to get choices plus care, needs to move apts by November 21 [facility] is helping but they are not getting anywhere either. Current CM is Angela ([phone]). Feeling hopeless, would like to be able [...] others Anxiety, PTSD Not seeing psychiatry through [facility] anymore since they left in July ER [...] do of a section 8 Nicki in rehabilitation case coordinator from [facility] who are assisting both her [...] this encounter. (Established patient total visit time: 24628 - 20min, 91720 - 30 min, 99143 - 40 min; New patient total visit times: 98413 - 30 min, 63899 - 45 min, 01763 - 60 min) documented in this encounter [...] unspecified documented in this encounter Care Teams Heel Stiffener Relationship Specialty Start Date End Date Hoang Castellanos APRN [address] [place] [address] PCP - General Family Medicine 03/12/20 documented as of this encounter
--- OUTSIDE RECORDS SUMMARY | 2024-08-15 13:30 | XMS_ITS | Encounter Summary ---
Author Organization [facility] [place] [address] Care Team Providers Care Repairer Pump Name Role Phone Hoang Castellanos APRN Primary Care Provider Reason for Visit * Reason Comments Medication Refill Encounter Details Date Type Department Care Team (Late st Contact Info) Description 09/01/2021 Refill Primary Care at [facility] [address] [place] [phone] Hoang Castellanos APRN [address] [place] [address] Benign essential hypertension; Hyperlipidemia, unspecified hyperlipidemia type; [...] Name: amLODIPine Besylate 5 MG Tablet] 28 [id number] Sig: TAKE ONE (1) TABLET BY MOUTH [...] reflux documented in this encounter Care Teams Repairer Pump Relationship Specialty Start Date End Date Hoang Castellanos, SIZE TESTER [address] [place] [address] PCP - General Family Medicine 03/12/20 documented as of this encounter
--- OUTSIDE RECORDS SUMMARY | 2024-08-15 13:30 | XMS_ITS | Encounter Summary ---
Author Organization [facility] [place] [address] Care Team Providers Care Mmd Unit Teacher Name Role Phone Hoang Castellanos APRN Primary Care Provider Reason for Visit * Reason Comments Medication Refill Encounter Details Date Type Department Care Team (Late st Contact Info) Description 09/14/2021 Refill Primary Care at [facility] [address] [place] [phone] Hoang Castellanos APRN [address] [place] [address] Cervicalgia; Chronic pain syndrome Social History Tobacco [...] syndrome documented in this encounter Care Teams Mmd Unit Teacher Relationship Specialty Start Date End Date Hoang Castellanos, MANAGER STRATEGY & ACCOUNT [address] [place] [address] PCP - General Family Medicine 03/12/20 documented as of this encounter
--- OUTSIDE RECORDS SUMMARY | 2024-08-15 13:30 | XMS_ITS | Encounter Summary ---
[place] [address] Care Team Providers Care Manufacturing Lead Name Role Phone Hoang Castellanos APRN [...] Expiration Date Visits Re quested Visits Authorized [id number] 1 1 Encounter Details Date Type Department Care Team (Late st Contact Info) Description 10/30/2021 8:35 AM EDT - 10/30/2021 1:12 PM EDT Surgery [place] [address] Campos Schumacher MD [facility] [place] [address] @ARTHRODESIS, POSTERIOR CERVICAL SPINE (WRVU 17.4) Social [...] the last few months. telephone consent by [facility] Course: Jeannie Rico presented 10/30/2021 for [...] who have questions please contact the health personal care assistant that requested your imaging first. Head wo [...] who have questions please contact the health personal care assistant that requested your imaging first. Chest PA [...] who have questions please contact the health personal care assistant that requested your imaging first. Pending Studies and Lab Data: na Discharge Condition: Stable Discharge to: rehab Future Appointments and Orders Future Appointments and Orders Future Appointments Provider Department Dept Phone 12/03/2021 10:30 AM Campos Schumacher [place] [facility] [place] at: [employer] [facility] [phone] 12/22/2021 9:45 AM Michael Espinoza MD [place]ocrinology at [facility] [place]rive at: [employer] [facility] 3A [phone] Future Orders Complete By Expires XR Cervical Spine 2 or 3 Views [07708 Custom] 12/04/2021 (Approximate) 01/04/2022 Process Instructions: Scheduling Instructions: Questions: Where will study be performed?: [facility] Radiology Portable exam?: Reason for exam [...] lancets 30 gauge Misc 1 each by [facility]Non-Drug; Combo Route) route daily. 1 each Quantity: [...] anticoagulant, and non-steroidal anti-inflammatory (NSAIDs) drugs. Common juns-qcs-ctsmnak medications which should be avoided include Aspirin, [...] to pass. These medications can be obtained hjmm-eqj-ultskzl and their use is recommended on an [...] retention Constipation not relieved by diet and/or xmnj-vzt-llrwtjl stool softeners and laxatives Nausea/vomiting (upset stomach) [...] tobacco dependence clinics in these locations: ??? [facility]: [place] ??? [facility] [place], [place] Other Programs at [facility] in [place] ??? Living Free of Tobacco support group: For anyone who has quit tobacco or is considering quitting tobacco. [facility] Health Education Center, Level 4, [place] 3:30 to 4:30 p.m. on the tuesday of every month. Other Programs in the Area ??? [facility] in [place] One-on-one counseling, hypnosis. Cassidy Jamison ??? [facility] in [place], [place] One-on-one counseling, QuitLine, classes. Lay Ferris ??? [facility]: One-on-one counseling. All ages and incomes eligible. Sakshi Camacho [facility]: Classes & support group. Behzad Schwab ??? [facility] in [place], [place] One-on-one counseling, QuitLine, classes, hypnosis therapy. Ruth Corey Information about Quitting Smoking and Tobacco See our Quitting Smoking - Information and Materials page (http://www.[facility].org/medical- information/smoking/information_on_quitting_smoking.html) for educational information about quitting smoking, downloadable smoking cessation materials, podcasts, websites, helplines, and more. FOLLOW UP PLAN: Incision: [x] Your artie need to be removed on 11/13/2021. You can get them removed by coming into our office, PCP office, or at rehab. a Appointments: Please follow up in the Neurosurgery Clinic in 4-6 weeks. Please call the Neurosurgery Office at [phone] if you do not receive a scheduled appointment within two weeks. Your follow-up appointment will be with: [x] Dr. Schumacher Follow-up Imaging: [x] XR - Cervical HOW TO REACH NEUROSURGERY Office Hours: Tuesday through Tuesday, 8am-5pm. Call . On weekends or after office hours: Call [phone] and ask the black mill operator to page the Neurosurgery Resident/Advanced Practice Provider carpentry professional. IMPORTANT PHONE NUMBERS: Outpatient Nurse (Karen Belle) Inpatient Nurses Neurosurgical Resident/Advanced Practice Provider On-Call (after 5pm or before 8am) Neurosurgery offices (Tuesday through Tuesday between 8am-5pm): Adult Neurosurgery Dr. Remy Green Pediatric Neurosurgery Dr. Cassidy Funes Advanced Practice Providers Prudence Heaton, Nurse Practitioner (outpatient) Cheryl Patel, Physician Marketing Researcher (inpatient) Mabel Metcalf, Nurse Practitioner (inpatient) Brandi Chiu, Physician Marketing Researcher (inpatient) Brandi Benavides, Physician Marketing Researcher (inpatient) Karen Barksdale, Nurse Practitioner (outpatient: vascular) Amanda Mendez, Physician Marketing Researcher (outpatient: spine) David Herring, Nurse Practitioner (inpatient/outpatient) Freddy Dolan, Physician Marketing Researcher (outpatient) Margo Almodovar, Nurse Practitioner (outpatient: neuro-oncology) HOW TO REACH NEUROSURGERY Office Hours (Tuesday through Tuesday 8am-5pm): Call On weekends or after office hours (after 5pm or before 8am): Call [phone] and ask the black mill operator to page the Neurosurgery Resident/Advanced Practice Provider carpentry professional. *Your surgeon may not be call center dispatcher (especially after office hours or on the weekend) so be ready totell about yourself and your surgery when you call. Neurosurgery Providers Adult Neurosurgery Dr. Remy Green Pediatric Neurosurgery Dr. Cassidy Funes Advanced Practice Providers Prudence Heaton, Nurse Practitioner (outpatient) Cheryl Patel, Physician Marketing Researcher (inpatient) Mabel Metcalf, Nurse Practitioner (inpatient) Brandi Chiu, Physician Marketing Researcher (inpatient) Dereck Salgado, Nurse Practitioner (outpatient: pediatric) Brandi Benavides, Physician Marketing Researcher (inpatient) Karen Barksdale, Nurse Practitioner (outpatient: vascular) Amanda Mendez, Physician Marketing Researcher (outpatient: spine) David Herring, Nurse Practitioner (inpatient/outpatient) Freddy Dolan, Physician Marketing Researcher (outpatient) Margo Almodovar, Nurse Practitioner (outpatient: neuro-oncology) [...] anticoagulant, and non-steroidal anti-inflammatory (NSAIDs) drugs. Common lqio-mab-pchvryw medications which should be avoided include Aspirin, [...] to pass. These medications can be obtained yoer-sbm-naqqhqn and their use is recommended on an [...] retention Constipation not relieved by diet and/or bbwd-cnn-ymcrudn stool softeners and laxatives Nausea/vomiting (upset stomach) [...] have tobacco dependence clinics in these locations: [facility]: [place] [facility], [place] Other Programs at [facility] in [place] Living Free of Tobacco support group: For anyone who has quit tobacco or is considering quitting tobacco. [facility] Health Education Center, Level 4, [place] 3:30 to 4:30 p.m. on the tuesday of every month. Other Programs in the Area [facility] in [place] One-on-one counseling, hypnosis. Cassidy Jamison [facility] in [place], [place] One-on-one counseling, QuitLine, classes. Lay Ferris [facility]: One-on-one counseling. All ages and incomes eligible. Sakshi Camacho [facility]: Classes & support group. Behzad Schwab [facility] in [place], [place] One-on-one counseling, QuitLine, classes, hypnosis therapy. Ruth Corey Information about Quitting Smoking and Tobacco See our Quitting Smoking - Information and Materials page (http://www.[email or web address]/medical- information/smoking/information_on_quitting_smoking.html) for educational information about quitting smoking, downloadable smoking cessation materials, podcasts, websites, helplines, and more. FOLLOW UP PLAN: Incision: [x] Your artie need to be removed on 11/13/2021. You can get them removed by coming into our office, PCP office, or at rehab. a Appointments: Please follow up in the Neurosurgery Clinic in 4-6 weeks. Please call the Neurosurgery Office at [phone] if you do not receive a scheduled appointment within two weeks. Your follow-up appointment will be with: [x] Dr. Schumacher Follow-up Imaging: [x] XR - Cervical HOW TO REACH NEUROSURGERY Office Hours: Tuesday through Tuesday, 8am-5pm. Call . On weekends or after office hours: Call [phone] and ask the black mill operator to page the Neurosurgery Resident/Advanced Practice Provider carpentry professional. IMPORTANT PHONE NUMBERS: Outpatient Nurse (Karen Belle) Inpatient Nurses Neurosurgical Resident/Advanced Practice Provider On-Call (after 5pm or before 8am) Neurosurgery offices (Tuesday through Tuesday between 8am-5pm): Adult Neurosurgery Dr. Remy Green Pediatric Neurosurgery Dr. Cassidy Funes Advanced Practice Providers Prudence Heaton, Nurse Practitioner (outpatient) Cheryl Patel, Physician Marketing Researcher (inpatient) Mabel Metcalf, Nurse Practitioner (inpatient) Brandi Chiu, Physician Marketing Researcher (inpatient) Brandi Benavides, Physician Marketing Researcher (inpatient) Karen Barksdale, Nurse Practitioner (outpatient: vascular) Amanda Mendez, Physician Marketing Researcher (outpatient: spine) David Herring, Nurse Practitioner (inpatient/outpatient) Freddy Dolan, Physician Marketing Researcher (outpatient) Margo Almodovar, Nurse Practitioner (outpatient: neuro-oncology) [...] Sustained Release 24 hrIndications:Coronary 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 All belongings sent with patient. KILO removed, incision EDUCATION PROFESSOR, skin free from pressure ulcers. Discharge instructions, medications, and follow-up appointments reviewed, education provided on 1300, all questions answered. Report called to at 1300. Patient instructed to call with concerns. * Parvin Barksdale RN - 11/04/2021 11:44 AM EDT Physician Certification Statement for Non-Emergency Ambulance Services Section I - General Information Jeannie Rico 1960 Medicare Number: [id number] Transport Date: 11/04/21 (PCS is valid for round trips on this date and for all repetitive trips in the 60-day range as noted below.) Origin: [facility] Destination: [facility], [place] Is the patient's stay covered under [...] van (i.e. seated during transport, without medical technologist prn or monitoring?): No 4) In addition to [...] ambulance transport. Parvin Barksdale MSN-Ed, RN ACM retail pricing coordinator Office of Care Management Pager #[phone] * Kanu Roberts RN - 11/04/2021 11:23 [...] AM EDTSummary: Discharge Note Office of Care Management/Side Panel Hanger Patient Name: Jeannie Rico : 1960 Patient has been offered an acute rehab bed at [facility] for today, 11/04/21 [facility] arranged for a 1530 transport. Ambulance will need: Medicare ambulance form completed and signed (MD or Ladies Suit Operator RN/DRY HOUSE TENDER) Copy of patient demographics [place] Out of Hospital DNR/DNI order, if active No MD to MD report necessary Please call Nursing Report to , ask for contract associate. Info to accompany patient: Copies of Medication Administration Records and IV sheets for past 10 days. Plan: Side Panel Hanger will be available to the patient and Ladies Suit Operator-RN and/or Social Workerfor further assistance. Patient will be discharged to: [facility] Jeremy Pearson, Side Panel Hanger * Amelie Howell OTA - 11/04/2021 9:37 [...] Safety awareness: impulsive ?? Vision:corrective lenses multimedia production assistant ?? minimal vision R eye ?? Strength [...] Therapy Rehabilitation Department SRUTHI Tomas Pager # [phone] Patient status, treatment interventions, and goals discussed [...] Procedure Component Value Units Date/Time COVID-19 PCR [[id number]] Collected: 11/02/21 1615 Lab Status: Final result [...] using the Simplexa COVID-19 Direct Assay by Keniu as authorized by the FDA issued Emergency [...] Department of Pathology and Laboratory Medicine at [facility], certified under the Clinical Laboratory Improvement Amendments [...] fact sheets at the following FDA website: https://www.fda.gov/medical-devices/bzzbprfehcu-hkostna-8788-idikh-64-vkhuhbbxu- nwc-wjryyzexbxagly-zceroid-devices/ipjff-qgfnrqphrcv-owca SARS-CoV-2 Source CONSULTANT LUXURY AND AUTO. VICE PRESIDENT JAGUAR BRAND (EX ) Swab COVID-19 PCR [[id number]] Collected: 10/27/21 1132 Lab Status: Final result [...] diagnosis of COVID-19 is performed using the [employer] m SARS-CoV-2 Assay as authorized by the FDA Emergency Use Authorization (EUA). This EUA assay is intended for In-vitro Diagnostic (IVD) use with respiratory specimens such as nasopharyngeal swabs collected from individuals during the acute phase of infection. This assay is performed based on the instructions for use provided by [employer] and additional guidance provided by CDC and FDA. Testing is performed in the Clinical Genomics and Advanced Technology Laboratory within the Department of Pathology and Laboratory Medicine at [facility], certified under the Clinical Laboratory Improvement Amendments [...] fact sheets at the following FDA website: https://www.fda.gov/medical-devices/jdwjxhqsidt-nlmjyfb-5982-skfkd-86-gtqpqksum- bju-cmwuooaebqkuij-pxnevjj-devices/qriym-knmokswgkxg-dpjp SARS-Cov-2 RNA Source CONSULTANT LUXURY AND AUTO. VICE PRESIDENT [employer] (EX ) Swab Diagnostic Studies: Results for orders placed [...] who have questions please contact the health personal care assistant that requested your imaging first. Head wo [...] who have questions please contact the health personal care assistant that requested your imaging first. Chest PA [...] who have questions please contact the health personal care assistant that requested your imaging first. Inpatient Medications: [...] changes occur or new questions arise, page [phone]. Case discussed with Dr. Adal Trinidad. Associated [...] Oxygen weaned off, with intermittent requirement in carton lettering machine operator which likely relates to sleep [...] has made the decision easier. Kimberly Lee DRY HOUSE TENDER,[facility] [id number] * Kanu Roberts RN - [...] home, and has home PT and home theater expert services. Bathroom Set-up: tub shower with seat [...] Billing Code: functional mobility ANDRES NINO PT Pager:[phone] Physical Therapy Inpatient Rehabilitation Department * Kimberly [...] John King and her Casemanager Jodie at [facility] out of [place].Her team has been callingto check in on her while she has been Hospitalized.Patient reports she is on MH medications and hasnot had any side effects from the medications that she can not tolerate at this time.Patient ststesher has MH struggles also and [facility] will be checking on him while she is I rehab for a couple of weeks. Kimberly DIOR,[facility] X4991 * Amelie Howell, FRANCIS[place] - [...] Safety awareness: impulsive ?? Vision:corrective lenses multimedia production assistant ?? minimal vision R eye ?? Strength and ROM: ?? Pt strength and ROM in RUE improved 4/5 strength with report of improvement in sensation ?? Endurance:fair ?? Vitals: pt reported feeling lightheaded following sup>sit, BP taken: 109/68. ?? Pt oxygen found not to be turned on, this publications writer placed pt on 2 L. VSS [...] Occupational Therapy Rehabilitation Department Amelie NEGRO Pager #[phone] Patient status, treatment interventions, and goals discussed [...] Procedure Component Value Units Date/Time COVID-19 PCR [[id number]] Collected: 11/02/21 1615 Lab Status: Final result [...] using the Simplexa COVID-19 Direct Assay by Keniu as authorized by the FDA issued Emergency [...] Department of Pathology and Laboratory Medicine at [facility], certified under the Clinical Laboratory Improvement Amendments [...] fact sheets at the following FDA website: https://www.fda.gov/medical-devices/hqslyivetpk-xewslvq-2310-xzmil-82-pjpxoebpk- mbg-vcvnfdrfqtgmiv-nfmpjjf-devices/zhpzd-cvuqijosyok-pgdk SARS-CoV-2 Source CONSULTANT LUXURY AND AUTO. VICE PRESIDENT J[employer] (EX ) Swab COVID-19 PCR [[id number]] Collected: 10/27/21 1132 Lab Status: Final result [...] diagnosis of COVID-19 is performed using the [employer] m SARS-CoV-2 Assay as authorized by the FDA Emergency Use Authorization (EUA). This EUA assay is intended for In-vitro Diagnostic (IVD) use with respiratory specimens such as nasopharyngeal swabs collected from individuals during the acute phase of infection. This assay is performed based on the instructions for use provided by [employer] and additional guidance provided by CDC and FDA. Testing is performed in the Clinical [employer] and Advanced Technology Laboratory within the Department of Pathology and Laboratory Medicine at [facility], certified under the Clinical Laboratory Improvement Amendments [...] fact sheets at the following FDA website: https://www.fda.gov/medical-devices/jcmfophaxnl-cezobls-3035-eifhw-32-sfziprvus- pzb-euagbwzpcspuru-mrnmzqk-devices/dtxkf-nowolwrcuvb-ssbc SARS-Cov-2 RNA Source CONSULTANT LUXURY AND AUTO. VICE PRESIDENT J[employer] (EX ) Swab Diagnostic Studies: Results for orders placed [...] who have questions please contact the health personal care assistant that requested your imaging first. Head wo [...] who have questions please contact the health personal care assistant that requested your imaging first. Chest PA [...] who have questions please contact the health personal care assistant that requested your imaging first. Inpatient Medications: [...] home, and has home PT and home theater expert services. Bathroom Set-up: tub shower with seat [...] Billing Code: functional mobility ANDRES NINO, PT Pager:[phone] Physical Therapy Inpatient Rehabilitation Department * Parvin Barksdale RN - 11/02/2021 10:28 AM EDT Based on discussions with the multi-disciplinary healthcare team, the patient would benefit from acute/swing level of care at discharge. ?? I have met with the Patient to discuss discharge planning needs. I have provided the [facility], Office of Care Management letter from the Applications Consultant pertaining to rehab referrals. I have also provided a letter describing our affiliations within the [facility] and educatedthem about their right to choose where referrals are. ?? Provided patient with [facility] Star Quality Rating for SNF, [...] requested referrals to: 1. [facility] [address] [place] [address] ?? 2. [facility] Acute Rehabilitation and Sub-Acute (Swing) Rehab Levels of Care [address] [place] [address] ?? 3. [facility] (Swing) ([facility]) [address] [place] [address] ?? PHONE: [phone] FAX: [phone] ?? Expected date of discharge: 11/03/21 Has patient received the COVID vaccine: Yes Booster: Yes Does patient have COVID vaccine card: Yes Copy of Card Obtained: No Note routed to Side Panel Hanger who will communicate referrals to facilities and provide any required information. Parvin Barksdale MSN-Ed, RN ACM retail pricing coordinator Office of Care Management Pager #[phone] * Earlene Lee RN - 11/02/2021 12:14 AM EDT Patient desated to 70s on 3l NC o2, on 4L o2 NC, sat is 94%. Provider aware. Patient had a ct head and neck as her RLE was 2/5 strength at bedtime, and family was concerned about patient's shorter responses and confusion, though was AOx4 for this publications writer's check of orientationat bedtime. Provider aware. [...] 17.4) performed by Campos Schumacher MD at [facility] MAIN OR PRO DUDLEY W/O FACETEC FORAMOT/DSKC 1/ VRT SEG, CERVICAL N/A 10/30/2021 LAMINECTOMY, CX W/EXPLOR , W/O FACETECTOMY, 1 OR 2 SEGMENTS (WRVU 17.61) performed by Campos Schumacher MD at [facility] MAIN OR PRO POSTERIOR SEGMENTAL INSTRUMENTATION 3-6 VRT SEG N/A 10/30/2021 POST SPINAL INSTRUMENTATION, 3-6 VERTEBRA, NON SEGMENTAL (WRVU 12.56) performed by Campos Schumacher MD at [facility] MAIN OR PRO UPPER GI ENDOSCOPY, BIOPSY N/A 12/03/2015 EGD WITH BIOPSY performed by Ken Sanders MD at [facility] ENDOSCOPY PRO UPPER GI ENDOSCOPY, BIOPSY N/A 09/19/2018 UPPER GASTROINTESTINAL ENDOSCOPY,WITH BIOPSY SINGLE OR MULTIPLE (WRVU 2.49) performed by Tyron Mercado MD at [facility] ENDOSCOPY TONSILLECTOMY UPPER GI ENDOSCOPY, EXAM 12/04/2010 UPPER GI ENDOSCOPY performed by DEE WRIGHT at [facility] ENDOSCOPY Social History: Home set-up: Pt lives with he in an apt with 3 cats. is home, and has home PT and home theater expert services. Bathroom Set-up: tub shower with seat [...] 54 Billing Code: miles NINO, PT Pager: [phone] Physical Therapy Inpatient Rehabilitation Department * Pham [...] 17.4) performed by Campos Schumacher MD at [facility] MAIN OR ??? PRO DUDLEY W/O FACETEC FORAMOT/DSKC 1/ VRT SEG, CERVICAL N/A 10/30/2021 LAMINECTOMY, CX W/EXPLOR , W/O FACETECTOMY, 1 OR 2 SEGMENTS (WRVU 17.61) performed by Campos Schumacher MD at [facility] MAIN OR ??? PRO POSTERIOR SEGMENTAL INSTRUMENTATION 3-6 VRT SEG N/A 10/30/2021 POST SPINAL INSTRUMENTATION, 3-6 VERTEBRA, NON SEGMENTAL (WRVU 12.56) performed by Campos Schumacher MD at [facility] MAIN OR ??? PRO UPPER GI [...] WRIGHT at [facility] ENDOSCOPY Social History: Patient lives with [...] Vision & Perception: ?? corrective lenses multimedia production assistant ?? minimal vision R eye Communication: WFL [...] and measurable assessment of functional outcome. Pager: [phone] Pham Shannon OT 11/01/2021 Occupational Therapy Rehabilitation [...] eval as able. Kenna Diane, PT Pager: [phone] Physical Therapy Inpatient Rehabilitation Department * Moe [...] for tomorrow to see as appropriate. Pager: [phone] MOE CANTRELL OT 10/31/2021 Occupational Therapy Rehabilitation [...] WRIGHT at [facility] ENDOSCOPY Medications: No current facility-administered medications [...] 30 tablet 1 ??? Miscellaneous Medical Supply [facility] 1 walker on wheels with seat 1 each 0 ??? ibuprofen (Advil;Motrin) 800 mg Tablet Take 1 tablet by mouth every 8 hours as needed for Pain.90 tablet 5 ??? sertraline (ZOLOFT) 100 mg Tablet Take 2 tablets by mouth 2 times daily. ??? multivitamin (THERAGRAN) Tablet Take 1 tablet by mouth daily. ??? lancets 30 gauge Misc 1 each by [facility].(Non-Drug; Combo Route) route daily. 100 each 3 [...] - 10/30/2021 12:50 PM EDT NEURODIAGNOSTIC LABORATORY [facility] INTRAOPERATIVE MONITORING REPORT Name: Jeannie Rico : [...] and abductor hallucis brevis recordings. CPT Codes: 00196 (EEG); 52922 (EMG 2 limbs); 33722 (EMG limited x2) 99661 (TOF, 4 nerves); 64651 (upper & lower MEP); 66591 (upper and lower SSEP bilateral); 52608 (IOM, 7 units); 40205 (IOM, 2 units). Intraoperative Neurophysiologic Monitoring was [...] & Follow-up Care: Contact information for follow-up [facility] [address] [facility] [address] Transportation: Wheelchair van/Ambulance? Yes Ambulance transportation is [...] MEDICAID [place] Prescription Coverage: Yes Preferred Pharmacy: [facility] [place], [place] - [address] [address] [facility] [address] [facility] [place], [place] [facility] [address] [facility] [address] [facility] [place] [address] [facility] [address] This plan was formulated with input from patient, pt and family (please identify family/friend involved if applicable) and team. All are in agreement with plan. Parvin BATEMAN, RN Pager #[phone] * Plan of Care - Sarah Hanson [...] lancets 30 gauge Misc 1 each by [facility]Non-Drug; Combo Route) route daily. 100 each 3 [...] 17.4) performed by Campos Schumacher MD at [facility] MAIN OR ??? PRO DUDLEY W/O FACETEC FORAMOT/DSKC 07/26 VRT SEG, CERVICAL N/A 10/30/2021 LAMINECTOMY, CX W/EXPLOR , W/O FACETECTOMY, 1 OR 2 SEGMENTS (WRVU 17.61) performed by Campos Schumacher MD at [facility] MAIN OR ??? PRO POSTERIOR SEGMENTAL INSTRUMENTATION 3-6 VRT SEG N/A 10/30/2021 POST SPINAL INSTRUMENTATION, 3-6 VERTEBRA, NON SEGMENTAL (WRVU 12.56) performed by Campos Schumacher MD at [facility] MAIN OR ??? PRO UPPER GI [...] WRIGHT at [facility] ENDOSCOPY Family History: Mother: from lung cancer at age 64; COPD, smoker, congestive heart failure Father: HTN, DM, Kidney Cancer, Skin Cancer; from [place] at 76 Maternal Grandmother - at age 35 y/o due to ovarian Social History: Tobacco: not a current smoker; prior 3 packs a day smoker - quit 3 months prior Etoh: none Illicits: uses medical marijuana Living Situation: Lives in [place], [place] Occupation: On disability due to mental [...] who have questions please contact the health personal care assistant that requested your imaging first. Head wo [...] who have questions please contact the health personal care assistant that requested your imaging first. Chest PA [...] who have questions please contact the health personal care assistant that requested your imaging first. Assessment: Ms. [...] MD Internal Medicine, PGY3 DINORA Pager # [phone] Associated attestation - Adal Trinidad MD - [...] TBD pending rehab evals and hospital course. 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 Care Management will continue to follow and assist with discharge planning and coordination of care as indicated. Anticipated Date of Discharge: 11/04/2021 Parvin BATEMAN, RN Pager #[phone] * Initial Assessments - Parvin Barksdale RN - 10/31/2021 1:55 PM EDT Office of Care Management Initial Assessment Medical record reviewed. Plan of care and patient status discussed with direct care Registered Nurse and/or Care Team in multidisciplinary rounds. Reason for Hospitalization: spinal surgery Last COVID test: Lab Results Component Value Date COVID19 Not Detected 10/27/2021 [id number] Not Detected 07/03/2020 Present on Admission: ??? Arthrodesis present Hospitalizations Within the Past 30 Days: no previous admission in last 30 days Patient receiving hospital care under IPI- SDP Admission (IP) status. Admission order reviewed. Primary Insurance on file: MEDICARE Secondary Insurance on file:@ Primary care provider on file: Hoang Castellanos, DIRECTOR LEARNING [phone] Pharmacy: [facility] [place] - [place], [place] - [address] [facility] [address] [place] [address] [facility] - [place], [place] - [address] [facility] [address] Advance Care Planning: Attempt Cardiopulmonary Resuscitation - Inpatient Received -Advanced Directive: Yes, on file Who is your DPOA-HC?: Sibling Current Functional Ability: Completely Dependent Functional Status Prior to Admission: unable to assess Home Environment: Others in the home: spouse. Current Living Arrangements: home/apartment/condo. Accessibility Concerns: . Current DME: unable to assess [address] [place] [address] Social & Family Supports: All names listed below confirmed with patient as current and correct Extended Emergency Contact Information Primary Emergency Contact: MittalKyra dubose Address: [address] [place] Relation: Sibling Secondary Emergency Contact: jodie espinoza Mobile Relation: Director Of Consumer Marketing Current Care Provided by: unable to assess [...] TBD pending hospital course and rehab evals. DRY HOUSE TENDER consult requested for emotional support r/t PMH PTSD, bipolar DO and anxiety. Registered Nurse Ladies Suit Operator / K 9 Handler/ Deputy will continue to follow patient???s progress and remain available if situation changes for coordination of care, psychosocial support and/or discharge planning. Office of Care Management Parvin Barksdale MSN, RN Pager #[phone] * Plan of Care - Irasema Calix [...] Operative Note Patient Name: Jeannie Rico : [id number] MR#: [id number] Case Date: 10/30/2021 Surgeon: Surgeon(s) and Role: [...] Lu MD - 10/30/2021 10:44 AM EDT [facility] [place] Patient Name: Jeannie Rico : [id number] MR#: [id number] Case Date: 10/30/2021 Surgeon: Surgeon(s) and Role: [...] C6, which was again confirmed by fluoroscopy. Accounting Officer holes for our screws were then fashioned bilaterally along the lateral masses of C5 and C6 using a modified Magerl technique with insertion point slightly inferior and medial to the midpoint ofthe lateral masses first using the Fixberas Cirilo C1 drill bit for the cortical rim, followed by hand drill, tap, and confirmation with ball tip feeler. The right C6 entry point required redirection to avoid entering the facet space. Once we were satisfied with the pilot boat captain holes bone wax was placed in thepilot [...] healing. Attention was then given to closure. [place] irrigation was then performed and meticulous hemostasis [...] then flipped onto the recovery bed, Garsia heat treater head removed, and extubated without incident. At [...] 11/02/2021 7:51 PM EDT RAPID COVID-19 PCR ([facility]/APD/[facility]) Routine 11/02/2021 4:15 PM EDT POCT [...] W/O Facetec Foramot/Dskc 07/26 Vrt Seg, Cervical ([id number]) 10/30/2021 8:44 AM EDT C 5/6 and 6/7 ACDF MODIFIER,POSTERIOR CERVICAL INFINITY MEDTRONIC 10/30/2021 8:44 AM EDT C 5/6 and 6/7 ACDF Posterior Segmental Instrumentation 3-6 Vrt Seg ([id number]) 10/30/2021 8:44 AM EDT C 5/6 and 6/7 ACDF Arthrodesis, Post/Posterolat Tq, Sngle Interspace; Cervical Below C2 Segmnt ([id number]) 10/30/2021 8:44 AM EDT C 5/6 and 6/7 ACDF POCT GLUCOSE Routine 10/30/2021 8:11 AM EDT documented in this encounter Results * POCT Glucose (11/04/2021 11:50 AM EDT) Glucose, POC 97 65 - 199 mg/dL [facility] Comment: Supplemental ranges: <140 mg/dL before meals <180 mg/dL all other times of the day Blood 11/04/2021 11:5 0 AM EDT 11/04/2021 11:50 AM EDT Campos Schumacher MD POINT OF CARE TEST O ALYSON [facility] [place] [address] * POCT Glucose (11/04/2021 7:41 AM EDT) Glucose, POC 133 65 - 199 mg/dL [facility] Comment: Supplemental ranges: <140 mg/dL before meals <180 mg/dL all other times of the day Blood 11/04/2021 7:41 AM EDT 11/04/2021 7:41 AM EDT Campos Schumacher MD POINT OF CARE TEST O ALYSON Performing Organization Address [facility]/ZIP Co de Phone Number [facility] [place] [address] * POCT Glucose (11/04/2021 3:56 AM EDT) Glucose, POC 85 65 - 199 mg/dL [facility] Comment: Supplemental ranges: <140 mg/dL before meals <180 mg/dL all other times of the day Blood 11/04/2021 3:56 AM EDT 11/04/2021 3:56 AM EDT Campos Schumacher MD POINT OF CARE TEST O ALYSON Performing Organization Address City/[facility]/ZIP Co de Phone Number [facility] [place] [address] * POCT Glucose (11/03/2021 11:46 PM EDT) Glucose, POC 98 65 - 199 mg/dL [facility] Comment: Supplemental ranges: <140 mg/dL before meals <180 mg/dL all other times of the day Blood 11/03/2021 11:4 6 PM EDT 11/03/2021 11:46 PM EDT Campos Schumacher MD POINT OF CARE TEST O ALYSON [facility] [place] [address] * POCT Glucose (11/03/2021 7:56 PM EDT) Glucose, POC 95 65 - 199 mg/dL [facility] Comment: Supplemental ranges: <140 mg/dL before meals <180 mg/dL all other times of the day Blood 11/03/2021 7:56 PM EDT 11/03/2021 7:56 PM EDT Campos Schumacher MD POINT OF CARE TEST O ALSYON Performing Organization Address City/[facility]/ZIP Co de Phone Number [facility] [place] [address] * (ABNORMAL) POCT Glucose (11/03/2021 3:15 PM EDT) Glucose, POC 216(H) 65 - 199 mg/dL [facility] Comment: Supplemental ranges: <140 mg/dL before meals <180 mg/dL all other times of the day Blood 11/03/2021 3:15 PM EDT 11/03/2021 3:15 PM EDT Campos Schumacher MD POINT OF CARE TEST O JEREMYERAKE [facility] [place] [address] * (ABNORMAL) POCT Glucose (11/03/2021 12:03 PM EDT) Glucose, POC 307(H) 65 - 199 mg/dL [facility] Comment: Supplemental ranges: <140 mg/dL before meals <180 mg/dL all other times of the day Blood 11/03/2021 12:0 3 PM EDT 11/03/2021 12:03 PM EDT Campos Schumacher MD POINT OF CARE TEST O ALYSON Performing Organization Address [facility] Co de Phone Number [facility] [place] [address] * POCT Glucose (11/03/2021 7:44 AM EDT) Glucose, POC 110 65 - 199 mg/dL [facility] Comment: Supplemental ranges: <140 mg/dL before meals <180 mg/dL all other times of the day Blood 11/03/2021 7:44 AM EDT 11/03/2021 7:44 AM EDT Campos Schumacher MD POINT OF CARE TEST O ALYSON Performing Organization Address [facility] Co de Phone Number [facility] [place] [address] * POCT Glucose (11/03/2021 4:13 AM EDT) Glucose, POC 103 65 - 199 mg/dL [facility] Comment: Supplemental ranges: <140 mg/dL before meals <180 mg/dL all other times of the day Blood 11/03/2021 4:13 AM EDT 11/03/2021 4:13 AM EDT Campos Schumacher MD POINT OF CARE TEST O ALYSON Performing Organization Address [facility] Co de Phone Number [facility] [place] [address] * POCT Glucose (11/03/2021 12:03 AM EDT) Glucose, POC 100 65 - 199 mg/dL [facility] Comment: Supplemental ranges: <140 mg/dL before meals <180 mg/dL all other times of the day Blood 11/03/2021 12:0 3 AM EDT 11/03/2021 12:03 AM EDT Campos Schumacher MD POINT OF CARE TEST O RDERABLES Performing Organization Address City/[facility]/ZIP Co de Phone Number [facility] [place] [address] * POCT Glucose (11/02/2021 7:51 PM EDT) Pathologist [facility] Glucose, POC 116 65 - 199 mg/dL [facility] Comment: Supplemental ranges: <140 mg/dL before meals <180 mg/dL all other times of the day Blood 11/02/2021 7:51 PM EDT 11/02/2021 7:51 PM EDT Campos Schumacher MD POINT OF CARE TEST O ALYSON Performing Organization Address [facility] Co de Phone Number [facility] [place] [address] * COVID-19 PCR (11/02/2021 4:15 PM EDT) [facility] SARS-CoV-2 RNA (Rapid) Not Detected Not Detected [facility] [...] using the Simplexa COVID-19 Direct Assay by Keniu as authorized by the FDA issued Emergency [...] Department of Pathology and Laboratory Medicine at [facility], certified under the Clinical Laboratory Improvement Amendments [...] fact sheets at the following FDA website: https://www.fda.gov/medical-devices/ikyucdejzai-zkjaght-2045-wgzot-92-xjgjyxbhz- use-a lfbyrzbqtlwiu-wsfcfjl-flztcds/amsjw-tfaqnzioott-ftuy SARS-CoV-2 Source CONSULTANT LUXURY AND AUTO. VICE PRESIDENT JAGUAR BRAND (EX ) Swab [facility] Nasopharyngeal Swab 11/03/19 4:15 PM EDT 11/02/2021 5:10 PM EDT Comment:Symptoms->Surveillan ce Narrative Resulting Agency Comment Spec In Lab Campos Schumacher MD MICROBIOLOGY - GENER AL ORDERABLES [facility] [place] [address] * POCT Glucose (11/02/2021 3:35 PM EDT) Glucose, POC 100 65 - 199 mg/dL [facility] Comment: Supplemental ranges: <140 mg/dL before meals <180 mg/dL all other times of the day Blood 11/02/2021 3:35 PM EDT 11/02/2021 3:35 PM EDT Campos Schumacher MD POINT OF CARE TEST O ALYSON Performing Organization Address City/[facility]/ZIP Co de Phone Number [facility] [place] [address] * POCT Glucose (11/02/2021 11:57 AM EDT) Glucose, POC 77 65 - 199 mg/dL [facility] Comment: Supplemental ranges: <140 mg/dL before meals <180 mg/dL all other times of the day Blood 11/02/2021 11:5 7 AM EDT 11/02/2021 11:57 AM EDT Campos Schumacher MD POINT OF CARE TEST O ALYSON Performing Organization Address [facility]/ZIP Co de Phone Number [facility] [place] [address] * XR Chest PA & Lateral (Generic) [...] who have questions please contact the health personal care assistant that requested your imaging first. ? Narrative [...] patients who have questions please contactthe health personal care assistant that requested your imaging first. Campos Schumacher MD IMG DX ORDERABLES * POCT Glucose (11/02/2021 7:20 AM EDT) Glucose, POC 97 65 - 199 mg/dL [facility] Comment: Supplemental ranges: <140 mg/dL before meals <180 mg/dL all other times of the day Blood 11/02/2021 7:20 AM EDT 11/02/2021 7:20 AM EDT Campos Schumacher MD POINT OF CARE TEST O RDERABLES Performing Organization Address City/[facility]/ZIP Co de Phone Number [facility] [place] [address] * Duplex Study for DVT, Bilat legs (11/02/2021 7:15 AM EDT) VB Text Report Department: Vascular Surgery Lab Patient: [id number] (JEANNIE RICO) CPT: 35961 Referring Physician: CAMPOS SCHUMACHER ?? Indications: New [...] VASCULAR ORDERABLES Performing Organization Address [facility]/ZIP Co de Phone Number [facility] * POCT Glucose (11/02/2021 4:02 AM EDT) Glucose, POC 90 65 - 199 mg/dL [facility] Comment: Supplemental ranges: <140 mg/dL before meals <180 mg/dL all other times of the day Blood 11/02/2021 4:02 AM EDT 11/02/2021 4:02 AM EDT Campos Schumacher MD POINT OF CARE TEST O ALYSON Performing Organization Address [facility] Co de Phone Number [facility] [place] [address] * POCT Glucose (11/01/2021 11:59 PM EDT) Glucose, POC 97 65 - 199 mg/dL [facility] Comment: Supplemental ranges: <140 mg/dL before meals <180 mg/dL all other times of the day Blood 11/01/2021 11:5 9 PM EDT 11/01/2021 11:59 PM EDT Campos Schumacher MD POINT OF CARE TEST O ALYSON Performing Organization Address [facility] Co de Phone Number [facility] [place] [address] * CT Head wo & Multiphase CTA [...] who have questions please contact the health personal care assistant that requested your imaging first. ? Narrative 11/02/2021 12:47 AM EDT EXAMINATION: CT HEAD WO & MULTIPHASE CTA HEAD/NECK (THROMBECTOMY PROTOCOL) CLINICAL HISTORY: cva sx. neuro feficiets TECHNIQUE: CT of head without intravenous contrast. Multiphase CTA of the carotids and pala of Barclay is performed after the administration [...] dissection. Bilateral vertebral arteries, basilar artery, bilateral grey inspector, and bilateral posterior communicating arteries are patent [...] intravenous contrast. Multiphase CTA of the carotidsand pala of Barclay is performed after the administration [...] dissection. Bilateral vertebral arteries, basilar artery, bilateral grey inspector, andbilateral posterior communicating arteries are patent without evidence ofhemodynamically significant stenosis, aneurysm or dissection. Diminutive right [id number]. No perfusion asymmetry on the delayed phase [...] patients who have questions please contactthe health personal care assistant that requested your imaging first. Campos Schumacher MD IMG CT ORDERABLES * POCT Glucose (11/01/2021 7:50 PM EDT) Glucose, POC 91 65 - 199 mg/dL [facility] Comment: Supplemental ranges: <140 mg/dL before meals <180 mg/dL all other times of the day Blood 11/01/2021 7:50 PM EDT 11/01/2021 7:50 PM EDT Campos Schumacher MD POINT OF CARE TEST O RDERAKE Performing Organization Address City/[facility]/ZIP Co de Phone Number [facility] [place] [address] * POCT Glucose (11/01/2021 4:01 PM EDT) Glucose, POC 110 65 - 199 mg/dL [facility] Comment: Supplemental ranges: <140 mg/dL before meals <180 mg/dL all other times of the day Blood 11/01/2021 4:01 PM EDT 11/01/2021 4:01 PM EDT Campos Schumacher MD POINT OF CARE TEST O ALYSON [facility] [place] [address] * POCT Glucose (11/01/2021 11:56 AM EDT) Glucose, POC 119 65 - 199 mg/dL [facility] Comment: Supplemental ranges: <140 mg/dL before meals <180 mg/dL all other times of the day Blood 11/01/2021 11:5 6 AM EDT 11/01/2021 11:56 AM EDT Campos Schumacher MD POINT OF CARE TEST O ALYSON Performing Organization Address City/[facility]/ZIP Co de Phone Number [facility] [place] [address] * POCT Glucose (11/01/2021 7:52 AM EDT) Glucose, POC 108 65 - 199 mg/dL [facility] Comment: Supplemental ranges: <140 mg/dL before meals <180 mg/dL all other times of the day Blood 11/01/2021 7:52 AM EDT 11/01/2021 7:52 AM EDT Campos Schumacher MD POINT OF CARE TEST O ALYSON Performing Organization Address City/[facility]/ZIP Co de Phone Number [facility] [place] [address] * POCT Glucose (11/01/2021 3:09 AM EDT) Glucose, POC 117 65 - 199 mg/dL [facility] Comment: Supplemental ranges: <140 mg/dL before meals <180 mg/dL all other times of the day Blood 11/01/2021 3:09 AM EDT 11/01/2021 3:09 AM EDT Campos Schumacher MD POINT OF CARE TEST O ALYSON Performing Organization Address City/[facility] Co de Phone Number [facility] [place] [address] * POCT Glucose (11/01/2021 12:37 AM EDT) Glucose, POC 134 65 - 199 mg/dL [facility] Comment: Supplemental ranges: <140 mg/dL before meals <180 mg/dL all other times of the day Blood 11/01/2021 12:3 7 AM EDT 11/01/2021 12:37 AM EDT Campos Schumacher MD POINT OF CARE TEST O ALYSON Performing Organization Address City/[facility]/ZIP Co de Phone Number [facility] [place] [address] * POCT Glucose (10/31/2021 8:17 PM EDT) Glucose, POC 109 65 - 199 mg/dL [facility] Comment: Supplemental ranges: <140 mg/dL before meals <180 mg/dL all other times of the day Blood 10/31/2021 8:17 PM EDT 10/31/2021 8:17 PM EDT Campos Schumacher MD POINT OF CARE TEST O ALYSON Performing Organization Address [facility]/ZIP Co de Phone Number [facility] [place] [address] * POCT Glucose (10/31/2021 4:16 PM EDT) Glucose, POC 129 65 - 199 mg/dL [facility] Comment: Supplemental ranges: <140 mg/dL before meals <180 mg/dL all other times of the day Blood 10/31/2021 4:16 PM EDT 10/31/2021 4:16 PM EDT Campos Schumacher MD POINT OF CARE TEST O ALYOSN Performing Organization Address City/[facility] Co de Phone Number [facility] [place] [address] * (ABNORMAL) pro-Brain Natriuretic Peptide (10/31/2021 12:21 PM EDT) NT-proBNP 428(H) <=124 pg/mL [facility] Blood Venous Draw / Unknown 10/31/2021 12:21 PM EDT 10/31/2021 12:57 PM EDT Narrative Resulting Agency Comment Spec In Lab Cheryl GR CHEMISTRY ORDERAB LES Performing Organization Address [facility] Co de Phone Number [facility] [place] [address] * Troponin (10/31/2021 12:21 PM EDT) Pathologist [facility] Troponin-T <0.01 0.00 - 0.00 ng/mL [facility] Comment: The 99th percentile for Troponin T is less than 0.01 ng/mL, any detectable cTnT concentration using this assay should be considered elevated. According to the third universal definition of myocardial infarction the following criteria with a clinical presentation consistent with acute myocardial ischemia meets the diagnosis for a myocardial infarction (IN). Detection of a rise and/or fall of cTnT, with at least one value greater than the 99th percentile (> or = 0.01) and with at least one of the following ?? Symptoms of ischemia ?? New or presumed new significant CH-bokrfkj-M wave (ST-T) changes or new left bundle [...] additional sample may be indicated. Reference: Third [place] Definition of Myocardial Infarction. Journal of the [place] [employer] 2012;60:1581-98 Blood 10/31/2021 12:2 1 PM EDT 10/31/2021 12:32 PM EDT Narrative Resulting Agency Comment Spec In Lab Cmapos Schumacher MD CHEMISTRY ORDERABLES Performing Organization Address [facility]/ZIP Co de Phone Number [facility] [place] [address] * (ABNORMAL) Basic Metabolic Panel (non-fasting) (10/31/2021 12:21 PM EDT) Glucose 118 65 - 199 mg/dL [facility] Comment:Diabetes: >=200 mg/d L plus symptoms Blood Urea Nitrogen 12 8 - 18 mg/dL [facility] Creatinine 0.74 0.70 - 1.20 mg/dL [facility] Sodium 134(L) 135 - 145 mmol/L [facility] Potassium 4.7 3.5 - 5.0 mmol/L [facility] Comment: Please note: ??Patients with WBC >100,000 may have falsely elevated Potassium levels. ??For accurate Potassium quantification in these patients send serum separator tube (gold top) for subsequent determinations. ??Contact the Clinical Chemistry Laboratory if there are any questions. Chloride 98 98 - 107 mmol/L [facility] Carbon Dioxide 28 22 - 31 mmol/L [facility] Anion Gap 8 5 - 15 mmol/L [facility] Calcium 9.0 8.5 - 10.5 mg/dL [facility] Est Glomerular Filtration Rate 87 >=60 mL/min/1. 73 m?? [facility] Comment: This patient? [...] In Lab Campos Schumacher MD CHEMISTRY ORDERABLES [facility] [place] [address] * Phosphorus (10/31/2021 12:21 PM EDT) Phosphorus 4.4 2.5 - 4.5 mg/dL [facility] Blood 10/31/2021 12:2 1 PM EDT 10/31/2021 12:27 PM EDT Narrative Resulting Agency Comment Spec In Lab Campos Schumacher MD CHEMISTRY ORDERABLES Performing Organization Address City/[facility]/ZIP Co de Phone Number [facility] [place] [address] * Magnesium (10/31/2021 12:21 PM EDT) Pathologist [facility] Magnesium 0.78 0.69 - 1.07 mmol/L [facility] Blood 10/31/2021 12:2 1 PM EDT 10/31/2021 12:27 PM EDT Narrative Resulting Agency Comment Spec In Lab Campos Schumacher MD CHEMISTRY ORDERABLES Performing Organization Address City/[facility]/ZIP Co de Phone Number [facility] [place] [address] * EKG 12 Lead (10/31/2021 12:08 PM EDT) Ventricular rate 59 BPM MUSE SYSTEM Atrial Rate 59 BPM MUSE SYSTEM P-R Interval 142 ms MUSE SYSTEM QRS Duration 82 ms MUSE SYSTEM Q-T Interval 408 ms MUSE SYSTEM QTC Calculated (Bezet) 403 ms MUSE SYSTEM Calculated P [place] 9 degrees MUSE SYSTEM Calculated R [place] 27 degrees MUSE SYSTEM Calculated T [place] 11 degrees MUSE SYSTEM INTERPRETATION Sinus bradycardia [...] Glucose, POC 118 65 - 199 mg/dL [facility] Comment: Supplemental ranges: <140 mg/dL before meals <180 mg/dL all other times of the day Blood 10/31/2021 11:5 3 AM EDT 10/31/2021 11:53 AM EDT Campos Schumacher MD POINT OF CARE TEST O RDERABLES Performing Organization Address City/[facility]/ZIP Co de Phone Number [facility] [place] [address] * (ABNORMAL) Differential, Automated (10/31/2021 8:14 AM EDT) Neutrophil % 85.7 % [facility] Neutrophil Absolute 9.06(H) 1.70 - 6.10 x10(3)/mc L [facility] Lymph % 6.3 % [facility] Lymphocytes Abs 0.7(L) 0.9 - 3.2 x10(3)/mc L [facility] Monocyte % 7.1 % [facility] Monocyte Abs 0.8 0.3 - 0.9 x10(3)/mc L [facility] Eos % 0.2 % [facility] Eosinophils Abs 0.0 0.0 - 0.4 x10(3)/mc L [facility] Basophil % 0.3 % [facility] Baso Absolute 0.0 0.0 - 0.1 x10(3)/mc L [facility] Immature Gran % 0.40 % [facility] Comment: Immature granulocytes(IG's)percentage and absolute count will include metamyelocytes, myelocytes, and promyelocytes. Blood smears from CBCs yielding IG's will be scanned manually for concordance. If this scan disagrees with the automated IG or if promyelocytes are noted, a manual differential will be performed. Immature Gran Absolute 0.04 0.00 - 0.04 x10(3)/ L [facility] Blood 10/31/2021 8:14 AM EDT 10/31/2021 8:47 AM EDT Narrative Resulting Agency Comment Spec In Lab Melania Gaxiola MD HEMATOLOGY ORDERAB LES [facility] [place] [address] * (ABNORMAL) Hemogram (10/31/2021 8:14 AM EDT) White Blood Cell 10.6(H) 4.0 - 9.5 x10(3)/[facility] Red Blood Cell 4.26 4.00 - 5.21 x10(6)/[facility] Hemoglobin 13.0 11.7 - 15.5 g/dL [facility] Hematocrit 40.9 35.7 - 45.8 % [facility] Mean Cell Volume 96.0(H) 82.6 - 94.4 fL [facility] Mean Cell Hemoglobin 30.5 27.1 - 32.0 pg [facility] Mean Cell Hemoglobin Concentration 31.8 31.7 - 35.0 g/dL [facility] Platelet 210 145 - 357 x10(3)/[facility] LAB[facility] RDW Standard Deviation 47.4(H) 37.0 - 46.0 [facility] RDW coefficient of variation 13.2 11.5 - 14.1 % [facility] Mean Platelet Volume 9.8 7.6 - 12.9 [facility] NRBC% auto 0.0 % [facility] NRBC Absolute 0.000 0.000 - 0.000 x10(3)/ L [facility] Blood 10/31/2021 8:14 AM EDT 10/31/2021 8:47 AM EDT Narrative Resulting Agency Comment Spec In Lab Melania Gaxiola MD HEMATOLOGY ORDERAB LES [facility] [place] [address] * POCT Glucose (10/31/2021 7:50 AM EDT) Glucose, POC 111 65 - 199 mg/dL [facility] Comment: Supplemental ranges: <140 mg/dL before meals <180 mg/dL all other times of the day Blood 10/31/2021 7:50 AM EDT 10/31/2021 7:50 AM EDT Campos Schumacher MD POINT OF CARE TEST O RDERAKE Performing Organization Address [facility] Co de Phone Number [facility] [place] [address] * POCT Glucose (10/31/2021 5:36 AM EDT) Glucose, POC 116 65 - 199 mg/dL [facility] Comment: Supplemental ranges: <140 mg/dL before meals <180 mg/dL all other times of the day Blood 10/31/2021 5:36 AM EDT 10/31/2021 5:36 AM EDT Campos Schumahcer MD POINT OF CARE TEST O RDLEOBARDO Performing Organization Address City/[facility]/ZIP Co de Phone Number [facility] [place] [address] * POCT Glucose (10/30/2021 11:28 PM EDT) Glucose, POC 119 65 - 199 mg/dL [facility] Comment: Supplemental ranges: <140 mg/dL before meals <180 mg/dL all other times of the day Blood 10/30/2021 11:2 8 PM EDT 10/30/2021 11:28 PM EDT Campos Schumacher MD POINT OF CARE TEST O ALYSON Performing Organization Address City/[facility]/ZIP Co de Phone Number [facility] [place] [address] * POCT Glucose (10/30/2021 7:50 PM EDT) Glucose, POC 142 65 - 199 mg/dL [facility] Comment: Supplemental ranges: <140 mg/dL before meals <180 mg/dL all other times of the day Blood 10/30/2021 7:50 PM EDT 10/30/2021 7:50 PM EDT Campos Schumacher MD POINT OF CARE TEST O ALYSON Performing Organization Address [facility] Co de Phone Number [facility] [place] [address] * XR Cervical Spine 2 or 3 [...] who have questions please contact the health personal care assistant that requested your imaging first. ? Narrative [...] patients who have questions please contactthe health personal care assistant that requested your imaging first. Electronically signed by: YANET GANN [facility] ([phone]),at 10/31/2021 10:23 AM Campos Schumacher MD IMG DX ORDERABLES * POCT Glucose (10/30/2021 3:17 PM EDT) Glucose, POC 103 65 - 199 mg/dL [facility] Comment: Supplemental ranges: <140 mg/dL before meals <180 mg/dL all other times of the day Blood 10/30/2021 3:17 PM EDT 10/30/2021 3:17 PM EDT Campos Schumacher MD POINT OF CARE TEST O ALYSON Performing Organization Address [facility] de Phone Number [facility] [place] [address] * XR Fluoro No Rad <1Hr - OR Use (10/30/2021 1:30 PM EDT) Narrative Dicom, Auditing User - 10/30/2021 2:07 PM EDT This exam is auto-finalizing. No interpretation was done. Campos Schumacher MD IMG FLUORO ORDERABLE S * POCT Glucose (10/30/2021 8:11 AM EDT) Glucose, POC 110 65 - 199 mg/dL [facility] Comment: Supplemental ranges: <140 mg/dL before meals <180 mg/dL all other times of the day Blood 10/30/2021 8:11 AM EDT 10/30/2021 8:11 AM EDT Campos Schumacher MD POINT OF CARE TEST O ALYSON Performing Organization Address [facility] de Phone Number [facility] [place] [address] documented in this encounter Visit Diagnoses Not [...] Routine documented in this encounter Care Teams Manufacturing Lead Relationship Specialty Start Date End Date Hoang Castellanos, DIRECTOR LEARNING [address] [place] [address] PCP - General Family Medicine 03/12/20 documented as of this encounter
--- OUTSIDE RECORDS SUMMARY | 2024-08-15 13:30 | XMS_ITS | Encounter Summary ---
Author Organization [facility] [place] [address] Care Team Providers Care Pathology Supervisor Name Role Phone Hoang Castellanos APRN Primary Care Provider Reason for Visit * Reason Comments Medication Refill Encounter Details Date Type Department Care Team (Late st Contact Info) Description 10/26/2021 Refill Primary Care at [facility] [address] [place] [phone] Hoang Castellanos APRN [address] [facility] [address] Social History Tobacco Use Types Packs/Day Years [...] * Telephone Encounter - [facility] - 10/26/2021 2:33 PM EDT [...] on filedocumented in this encounter Care Teams Pathology Supervisor Relationship Specialty Start Date End Date Hoang Castellanos, RADIATION MONITOR [address] [place] [address] PCP - General Family Medicine 03/12/20 documented as of this encounter
--- OUTSIDE RECORDS SUMMARY | 2024-08-15 13:30 | XMS_ITS | Encounter Summary ---
Author Organization [facility] Address [facility] [place] [address] Care Team Providers Care Certified Teacher Assistant Name Role Phone Hoang Castellanos APRN Primary Care Provider Reason for Visit * Reason Onset Date Comments Medication Refill 09/28/2021 Encounter Details Date Type Department Care Team (Late st Contact Info) Description 09/28/2021 [facility]ill [facility] [place] [address] Hoang Castellanos APRN [address] [place] [address] Social History Tobacco Use Types Packs/Day Years [...] filedocumented in this encounter Care Teams Certified Teacher Assistant Relationship Specialty Start Date End Date Hoang Castellanos, PROFESSOR OF PRACTICE [address] [place] [address] PCP - General Family Medicine 03/12/20 documented as of this encounter
--- OUTSIDE RECORDS SUMMARY | 2024-08-15 13:30 | XMS_ITS | Encounter Summary ---
[place] [address] Care Team Providers Care Floor Attendant Name Role Phone Hoang Castellanos APRN Primary Care Provider Reason for Visit * Reason Onset Date Comments Other 10/28/2021 Test results Encounter Details Date Type Department Care Team (Late st Contact Info) Description 10/28/2021 Telephone [place] [phone] Laurel Ordoñez RN Other (Test results) Social [...] filedocumented in this encounter Care Teams Floor Attendant Relationship Specialty Start Date End Date Hoang Castellanos, MANAGER SPECIAL EVENTS [address] [place] [address] PCP - General Family Medicine 03/12/20 documented as of this encounter
--- OUTSIDE RECORDS SUMMARY | 2024-08-15 13:30 | XMS_ITS | Encounter Summary ---
Author Organization [facility] Address [facility] [place] [address] Care Team Providers Care Residential Worker Name Role Phone Hoang Castellanos APRN [...] Expiration Date Visits Re quested Visits Authorized [id number] 1 1 Encounter Details Date Type Department Care Team (Late st Contact Info) Description 10/30/2021 8:45 AM EDT Anesthesia [place] [address] Pat Leblanc MD [facility] DR [place] [address] Evelia Dickerson [place] [address] Anesthesia Record Procedure Summary Procedure Name Responsible [...] 08; median cubital vein (antecubital fossa), left; puhh-qiy-fguxkx catheter system; Anatomical Landmarks; US Not Used; [...] 0916; metacarpal vein (top of hand), right; phgr-hbh-oohrcx catheter system; Anatomical Landmarks; 20 gauge; Leblanc MD; LDA not present upon assessment; 10/31/21; 1717 10/30/21 0916 by hSan Wheeler, CHEMICAL ENGINEERING TEACHER 10/31/21 1717 by eLila Sanchez RN Arterial Line 10/30/21; 0923; radi al artery, right; 20 gauge; Guidewire, Anatomical Landmarks; continuous blood pressure monitoring; MD Deana; Sterile Prep, Sterile Gloves; 10/30/21; 19310/30/21 0923 by Shan Wheeler, CHEMICAL ENGINEERING TEACHER 10/30/21 193 by Anna Cesar RN (RETIRED) Peripheral IV Line - Single Lumen 10/30/21; 0933; great saphenous vein (medial side of leg), right; aiwp-ghp-bfmhqh catheter system; Anatomical Landmarks; 18 gauge; S.Liam, CHEMICAL ENGINEERING TEACHER; 10/30/21; 1513 10/30/21 0933 by Shan Wheeler, CHEMICAL ENGINEERING TEACHER 10/30/21 1513 by Tom Hernandez RN Incision [...] Procedure Summary Date: 10/30/21 Room / Location: [facility] OR [address] [place] [address] MAIN OR Anesthesia Start: 844 Anesthesia Stop: [...] All Anesthesia Providers: Anesthesiologist: Pat Leblanc MD CHEMICAL ENGINEERING TEACHER: Shan Wheeler CRNA Vitals Value Taken Time [...] Psychiatry ??? Osteoporosis DEXA done at [facility] on 10/29/15: osteoporosis at the [...] BIOPSY performed by Ken Sanders MD at [facility] ENDOSCOPY ??? PRO UPPER GI ENDOSCOPY, BIOPSY N/A 09/19/2018 UPPER GASTROINTESTINAL ENDOSCOPY,WITH BIOPSY SINGLE OR MULTIPLE (WRVU 2.49) performed by Tyron Mercado MD at [facility] ENDOSCOPY ??? TONSILLECTOMY ??? UPPER GI ENDOSCOPY, EXAM 12/04/2010 UPPER GI ENDOSCOPY performed by DEE WRIGHT at [facility] ENDOSCOPY Social History Tobacco Use ??? Smoking [...] risks discussed with patient. Plan discussed with CHEMICAL ENGINEERING TEACHER. Anesthesia Screening Note: Date and Time of [...] is normal. ASSESSMENT: Jeannie presented to the [facility] clinic today with her manager school Angela to discuss anesthesia for her upcoming cervical spine decompression. She has a history of CAD requiring coronary angioplasty with stent placement. She denies chest pain or lightheadedness. She had an echocardiogram in December which showed an EF of 65%, no significant valve disease. [facility] which was normal. [...] mg documented in this encounter Care Teams Residential Worker Relationship Specialty Start Date End Date Hoang Castellanos, CABLE WORKER HELPER [address] [place] [address] PCP - General Family Medicine 03/12/20 documented as of this encounter
--- OUTSIDE RECORDS SUMMARY | 2024-08-15 13:31 | XMS_ITS | Encounter Summary ---
[place] [address] Care Team Providers Care Subway Car Repairer Name Role Phone Hoang Castellanos APRN Primary Care Provider [phone] Encounter Details Date Type Department Care Team (Latest Contact Info) Description 05/26/2021 10:20 AM EDT Ancillary Procedure Radiology Mammo at the [facility] at [facility] [address] [place] [phone] Hoang Castellanos APRN [address] [place] [address] Breast cancer screening by mammogram Social History [...] mammogram documented in this encounter Care Teams Subway Car Repairer Relationship Specialty Start Date End Date Hoang Castellanos APRN [address] [place] [address] PCP - General Family Medicine 03/12/20 documented as of this encounter
--- OUTSIDE RECORDS SUMMARY | 2024-08-15 13:31 | XMS_ITS | Encounter Summary ---
[place] [address] Care Team Providers Care Pipe Fitter Fire Sprinkler Systems Name Role Phone Hoang Castellanos APRN Primary Care Provider Encounter Details Date Type Department Care Team (Late st Contact Info) Description 06/08/2021 Telephone [place] [address] Sheree Escalante Social History Tobacco Use Types [...] EST Sheree Escalante, CTT[place] [address] [email or web address]: Jeannie Rico is a 61 [...] BIOPSY performed by Kne Sanders MD at [facility] ENDOSCOPY ??? PRO UPPER GI ENDOSCOPY, BIOPSY N/A 09/19/2018 UPPER GASTROINTESTINAL ENDOSCOPY,WITH BIOPSY SINGLE OR MULTIPLE (WRVU 2.49) performed by Tyron Mercado MD at [facility] ENDOSCOPY ??? TONSILLECTOMY ??? UPPER GI ENDOSCOPY, EXAM 12/04/2010 UPPER GI ENDOSCOPY performed by DEE WRIGHT at [facility] ENDOSCOPY Current Outpatient Medications on File [...] Medical [place] [facility] [place] walker on wheels [...] in places where it is forbidden? (ex. [place]) No Yes 0 3. Which cigarette would [...] number of lozenges to be used in [facility] is 20. Most people who use the [...] The patient has been provided with a [facility] Smoking Cessation packet. The patient has my [...] interested. Sheree Escalante 06/08/21 Tobacco Treatment Program [facility] documented in this encounter Plan of Treatment Not on file documented as of this encounter Visit Diagnoses Not on filedocumented in this encounter Care Teams Pipe Fitter Fire Sprinkler Systems Relationship Specialty Start Date End Date Hoang Castellanos APRN [address] [place] [address] PCP - General Family Medicine 03/12/20 documented as of this encounter
--- OUTSIDE RECORDS SUMMARY | 2024-08-15 13:31 | XMS_ITS | Encounter Summary ---
Author Organization [facility] Address [facility] [place] [address] Care Team Providers Care Unit Control Clerk Name Role Phone Hoang Castellanos APRN Primary Care Provider Encounter Details Date Type Department Care Team (Late st Contact Info) Description 06/24/2021 Home Care Visit [facility] Choices for Care [address] [place] [phone] Farrah Jama [facility] [place] Social History Tobacco Use Types Packs/Day [...] filedocumented in this encounter Care Teams Unit Control Clerk Relationship Specialty Start Date End Date Hoang Castellanos APRN [address] [place] [address] PCP - General Family Medicine 03/12/20 documented as of this encounter
--- OUTSIDE RECORDS SUMMARY | 2024-08-15 13:31 | XMS_ITS | Encounter Summary ---
Author Organization [facility] [address] Care Team Providers Care Fiberglass Roller Name Role Phone Hoang Castellanos APRN Primary Care Provider [phone] Reason for Visit * Reason Onset Date Comments Pre-op Exam 05/13/2021 Encounter Details Date Type Department Care Team (Late st Contact Info) Description 05/13/2021 Telephone Primary Care at [facility] 10 [facility] [place] [address] Hoang Castellanos APRN [address] [place] [address] Pre-op Exam Social History Tobacco Use Types [...] know. * Telephone Encounter - Hoang Castellanos, SOFTWARE SALES - 05/13/2021 1:04 PM EDT Thomas! I just took a call from Angela Esipnoza who is the wrapper caser for Jeannie Bates called and has a few questions regarding her care. Please call her at [phone]. I received the above message from Amanda [...] attest that you are eligible, please call [phone] to schedule your appointment. You are required to bring your proof of vaccine card * Telephone Encounter - Gautam Davidson - 05/13/2021 9:57 AM EDT Jeannie needs a preop and would really like to follow up with you on it. She said surgery is either the first or second week of May but wasnt sure on the date. She is having it at [facility] with neurology. Please advise documented in this encounter Plan of Treatment Not on file documented as of this encounter Visit Diagnoses Not on filedocumented in this encounter Care Teams Fiberglass Roller Relationship Specialty Start Date End Date Hoang Castellanos APRN [address] [place] [address] PCP - General Family Medicine 03/12/20 documented as of this encounter
--- OUTSIDE RECORDS SUMMARY | 2024-08-15 13:31 | XMS_ITS | Encounter Summary ---
Author Organization [facility] Address [facility] [place] [address] Care Team Providers Care Healthcare Translator Name Role Phone Hoang Castellanos APRN Primary Care Provider Encounter Details Date Type Department Care Team (Late st Contact Info) Description 04/15/2021 10:29 AM EDT - 04/15/2021 10:31 AM EDT Hospital Encounter [place] [phone] Benito Reed MD [facility] [place] [address] Coronary artery disease involving [place] coronary artery of [place] heart without angina pectoris Discharge Disposition: Home [...] Sustained Release 24 hrIndications:Coronary artery disease involving [place] coronary artery of [place] heart without angina pectoris TAKE ONE (1) [...] 09/28/2021 Ventolin HFA 90 mcg/actuation HFA Aerosol InhalerIndications:Machine Feller randell obstructive pulmonary disease, unspecified COPD type [...] 12:06 PM EDT Coronary artery disease involving [place] coronary artery of [place] heart without angina pectoris documented in this encounter Results * Nuclear Pharmacologic Stress Cardiology (04/15/2021 12:06 PM EDT) Anatomical Region Laterality Modality Other Benito Reed MD CARDIAC SERVICE S ORDERABLES documented in this encounter Visit Diagnoses Diagnosis Coronary artery disease involving [place] coronary artery of [place] heart without angina pectoris documented in this encounter Care Teams Healthcare Translator Relationship Specialty Start Date End Date Hoang Castellanos, SKIFF OPERATOR [address] [place] [address] PCP - General Family Medicine 03/12/20 documented as of this encounter
--- OUTSIDE RECORDS SUMMARY | 2024-08-15 13:31 | XMS_ITS | Encounter Summary ---
Author Organization [facility] [address] Care Team Providers Care Baseball Inspector Name Role Phone Hoang Castellanos APRN Primary Care Provider Encounter Details Date Type Department Care Team (Latest Contact Info) Description 2021 10:50 AM EDT Laboratory Appointment Laboratory at [facility] [address] [place] [phone] Seizures; Myelopathy; Bipolar affective disorder, remission status [...] MD HEMATOLOGY ORDERABLE S Performing Organization Address City/[facility]/ZIP Co de Phone Number LABORATORY [address] [place] [address] * Hemoglobin A1c (2021 10:54 AM EDT) Hemoglobin A1c 5.6 4.3 - 5.6 % LABORATORY Estimated Average Glucose 114 mg/dL LABORATORY Blood 2021 10:5 4 AM EDT 2021 11:55 AM EDT Narrative Resulting Agency Comment Spec In Lab Hoang Castellanos APRN CHEMISTRY ORDERABLES Performing Organization Address City/[facility]/ZIP Co de Phone Number LABORATORY [address] [place] [address] * Lamotrigine Lvl (2021 10:54 AM EDT) Lamotrigine Lvl (NOVEMBER) 3.7 2.5 - 15.0 mcg/mL LABORATORY Comment: ADDITIONAL INFORMATION This test was developed and its performance characteristics determined by [facility] in a manner consistent with CLIA requirements. This test has not been cleared or approved by the U.S. Food and Drug Administration. Test Performed by: [facility] - [facility] [address] [place] [address] Postmaster Relief: Skinny Reyes M.D. Ph.D.; CLIA# [id number] Blood 2021 10:5 4 AM EDT 2021 4:54 PM EDT Narrative Resulting Agency Comment Spec In Lab Gurjit Bass MD LAB SEND OUT ORDERAB LES Performing Organization Address [facility]/ZIP Co de Phone Number [facility] [address] [place] [address] * Vitamin B12 (2021 10:54 AM EDT) Pathologist [facility] Vitamin B12 1,017 232 - 1,245 pg/mL [facility] Blood 2021 10:5 4 AM EDT 2021 4:48 PM EDT Narrative Resulting Agency Comment Spec In Lab Gurjit Bass MD CHEMISTRY ORDERABLES Performing Organization Address [facility] Co de Phone Number [facility] [place] [address] * (ABNORMAL) Comprehensive metabolic panel (non-fasting) (2021 [...] Bass MD CHEMISTRY ORDERABLES LABORATORY [address] [place] [address] * T4 Total (2021 10:54 AM EDT) T4 Total 8.2 5.3 - 11.6 mcg/dL [facility] Comment: Reference Interval (mcg/dL): Females: ??First Trimester: 6.3-13.5 ??Second Trimester: 7.1-14.3 ??Third Trimester: 6.9-14.1 Blood 2021 10:5 4 AM EDT 2021 11:55 AM EDT Narrative Resulting Agency Comment Spec In Lab Gurjit Bass MD CHEMISTRY ORDERABLES Performing Organization Address City/[facility] Co de Phone Number [facility]OR[facility]ORY [address] [place] [address] * TSH (2021 10:54 AM EDT) Thyroid Stimulating Hormone 2.40 0.27 - 4.20 mcIU/mL LABORATORY Comment: Reference Interval (mcIU/mL): Females: ??First Trimester: 0.23-3.88 ??Second Trimester: 0.22-3.90 ??Third Trimester: 0.44-4.66 Blood 2021 10:5 4 AM EDT 2021 11:55 AM EDT Narrative Resulting Agency Comment Spec In Lab Gurjit Bass MD CHEMISTRY ORDERABLES Performing Organization Address [facility] Co de Phone Number [facility]ORY [address] [place] [address] * Lyme IgG & IgM Antibody (2021 10:54 AM EDT) Lyme Antibody Neg Neg [facility] Blood 2021 10:5 4 AM EDT 05/28/2021 6:53 AM EDT Narrative Resulting Agency Comment Spec In Lab Gurjit Bass MD IMMUNOLOGY ORDERABLE S Performing Organization Address City/[facility]/ZIP Co de Phone Number [facility] [place] [address] * (ABNORMAL) Hemogram (2021 10:54 AM EDT) [...] Bass MD HEMATOLOGY ORDERABLE S LABORATORY [address] [place] [address] documented in this encounter Visit Diagnoses Diagnosis Seizures Other convulsions Myelopathy Unspecified disease of spinal cord Bipolar affective disorder, remission status unspecified Type 2 diabetes mellitus without complication, without long-term current use of insulin documented in this encounter Care Teams Baseball Inspector Relationship Specialty Start Date End Date Hoang Castellanos, SAS ADMINISTRATOR [address] [place] [address] PCP - General Family Medicine 03/12/20 documented as of this encounter
--- OUTSIDE RECORDS SUMMARY | 2024-08-15 13:31 | XMS_ITS | Encounter Summary ---
Author Organization [facility] [place] [address] Care Team Providers Care Dispatcher Clerk Name Role Phone Hoang Castellanos APRN Primary Care Provider Reason for Visit * Reason Onset Date Comments TeleHealth 07/28/2021 Encounter Details Date Type Department Care Team (Late st Contact Info) Description 07/28/2021 Telephone [place] [phone] Gurjit Bass MD [facility] [place] [address] TeleHealth Social History Tobacco Use Types Packs/Day [...] filedocumented in this encounter Care Teams Dispatcher Clerk Relationship Specialty Start Date End Date Hoang Castellanos, SAM [address] [place] [address] PCP - General Family Medicine 03/12/20 documented as of this encounter
--- OUTSIDE RECORDS SUMMARY | 2024-08-15 13:31 | XMS_ITS | Encounter Summary ---
Author Organization [facility] [place] [address] Care Team Providers Care Stem Roller Or Crusher Operator Name Role Phone Hoang Castellanos APRN Primary Care Provider Reason for Visit * Reason Comments Medication Refill Encounter Details Date Type Department Care Team (Late st Contact Info) Description 04/23/2021 Refill Primary Care at [facility] [address] [place] [phone] Hoang Castellanos APRN [address] [facility] [place] [address] Social History Tobacco Use Types Packs/Day Years [...] Notes * [facility]/23/2021 2:31 PM [...] on filedocumented in this encounter Care Teams Stem Roller Or Crusher Operator Relationship Specialty Start Date End Date Hoang Castellanos APRN [address] [place] [address] PCP - General Family Medicine 03/12/20 documented as of this encounter
--- OUTSIDE RECORDS SUMMARY | 2024-08-15 13:31 | XMS_ITS | Encounter Summary ---
[place] [address] Care Team Providers Care Watcher Automat Long Goods Name Role Phone Hoang Castellanos APRN Primary Care Provider Reason for Referral * Diagnostic Test (Routine) - Closed Specialty Diagnoses / Procedures Referred By Contac t Referred To Contact Radiology Diagnoses Cervical spondylosis Procedures CT Cervical Spine wo Contrast Campos Puente MD [facility] [place] [address] [facility] [place] [address] Referral ID Status Reason Start Date Expiration Date V isits Requested Visits Authorized [id number] Closed Specialty Service Requested 08/09/2021 02/06/2023 1 1 Encounter Details Date Type Department Care Team (Late st Contact Info) Description 08/06/2021 10:00 AM EST Office [place] [address] Campos Puente MD [facility] [place] [address] Cervical spondylosis Social History Tobacco [...] is accompanied to this visit by her pattern technician. She states that her function has been [...] resident's interpretation and agree with the findings, Siomraa Rahman MD at 08/18/2021 10:43 AM Thank you for letting us participate in the care of this patient. ??If you are a health care provider and have any questions regarding this report, please contact the number below. ??For patients who have questions please contact the health elderly caregiver that requested your imaging first. ? Electronically signed by: Siomara Rahman MD, [facility] ([phone]), at 08/18/2021 10:43 AM Narrative 08/18/2021 10:43 [...] caregiver that requested your imaging first. Campos Puente MD IMG CT ORDERABLES documented in this encounter Visit Diagnoses Diagnosis Cervical spondylosis Cervical spondylosis without myelopathy Cervical spondylosis Cervical spondylosis without myelopathy documented in this encounter Care Teams Watcher Automat Long Goods Relationship Specialty Start Date End Date Hoang Castellanos, MILL CONTROLLER [address] [place] [address] PCP - General Family Medicine 03/12/20 documented as of this encounter
--- OUTSIDE RECORDS SUMMARY | 2024-08-15 13:31 | XMS_ITS | Encounter Summary ---
[place] [address] Care Team Providers Care Do All Operator Name Role Phone Hoang Castellanos APRN Primary Care Provider [phone] Encounter Details Date Type Department Care Team (Late st Contact Info) Description 07/07/2021 Tele[place] [address] Chikis Orourke Social History Tobacco Use Types [...] Caller: Patient Best number to reach caller: [phone] Reason for call: Patient asking for next [...] on filedocumented in this encounter Care Teams Do All Operator Relationship Specialty Start Date End Date Hoang Castellanos, LOSS PREVENTION/SAFETY DISTRICT MANAGER [address] [place] [address] PCP - General Family Medicine 03/12/20 documented as of this encounter
--- OUTSIDE RECORDS SUMMARY | 2024-08-15 13:31 | XMS_ITS | Encounter Summary ---
Author Organization [facility] [place] [address] Care Team Providers Care Quality Control Name Role Phone Hoang Castellanos APRN Primary Care Provider Reason for Referral * Diagnostic Test (Routine) - Closed Specialty Diagnoses / Procedures Referred By Contac t Referred To Contact Radiology Diagnoses Myelopathy Procedures MRI Thoracic Spine wo Contrast (Generic) Gurjit Bass MD [facility] [place] [address] [facility] Rad Mri [address] [place] [address] Referral ID Status Reason Start Date Expiration Date V isits Requested Visits Authorized [id number] Closed Specialty Service Requested 03/26/2021 09/23/2022 1 1 Reason for Visit * Diagnostic Test (Routine) - Closed Specialty Diagnoses / Procedures Referred By Contac t Referred To Contact Radiology Diagnoses Myelopathy Procedures MRI Thoracic Spine wo Contrast (Generic) Gurjit Bass MD [facility] [address] [facility] Rad Mri [address] [place] [address] Referral ID Status Reason Start Date Expiration Date V isipamela Requested Visits Authorized [id number] Closed Specialty Service Requested 03/26/2021 09/23/2022 1 1 Encounter Details Date Type Department Care Team (Latest Contact Info) Description 06/24/2021 1:30 PM EST - 06/24/2021 11:59 PM EST Hospital Encounter Radiology MRI at [facility] [address] [place] [address] Gurjit Bass MD [facility] [place] [address] Myelopathy Discharge Disposition: Home Social History Tobacco [...] Sustained Release 24 hrIndications:Coronary artery disease involving tribal coronary artery of tribal heart without angina pectoris TAKE ONE (1) [...] 09/28/2021 Ventolin HFA 90 mcg/actuation HFA Aerosol InhalerIndications:Solution Developer randell obstructive pulmonary disease, unspecified COPD type [...] who have questions please contact the health intensive care unit registered nurse that requested your imaging first. ? Narrative [...] patients who have questions please contactthe health intensive care unit registered nurse that requested your imaging first. Gurjit Bass MD IMG MRI ORDERABLES documented in this encounter Visit Diagnoses Diagnosis Myelopathy Unspecified disease of spinal cord documented in this encounter Care Teams Quality Control Relationship Specialty Start Date End Date Hoang Castellanos, SAM [address] [place] [place] [address] PCP - General Family Medicine 03/12/20 documented as of this encounter
--- OUTSIDE RECORDS SUMMARY | 2024-08-15 13:31 | XMS_ITS | Encounter Summary ---
[place] [address] Care Team Providers Care Supervisor Publications Production Name Role Phone Hoang Castellanos APRN Primary Care Provider Reason for Referral * Diagnostic Test (Routine) - Closed Specialty Diagnoses / Procedures Referred By Contac t Referred To Contact Radiology Diagnoses Cervical spondylosis Procedures CT Cervical Spine wo Contrast Campos Puente MD [facility] [place] [address] [facility] [place] [address] Referral ID Status Reason Start Date Expiration Date V isits Requested Visits Authorized [id number] Closed Specialty Service Requested 08/09/2021 02/06/2023 1 1 Reason for Visit * Diagnostic Test (Routine) - Closed Specialty Diagnoses / Procedures Referred By Contac t Referred To Contact Radiology Diagnoses Cervical spondylosis Procedures CT Cervical Spine wo Contrast Campos Puente MD [facility] [place] [address] [facility] [place] [address] Referral ID Status Reason Start Date Expiration Date V isits Requested Visits Authorized [id number] Closed Specialty Service Requested 08/09/2021 02/06/2023 1 1 Encounter Details Date Type Department Care Team (Latest Contact Info) Description 08/18/2021 7:49 AM EST - 08/18/2021 11:59 PM EST Hospital Encounter CT Scan at [facility] [place] [address] Campos Puente MD [facility] [place] [address] Cervical spondylosis Discharge Disposition: Home Social History [...] Sustained Release 24 hrIndications:Coronary artery disease involving [place] coronary artery of [place] heart without angina pectoris TAKE ONE (1) TABLET BY MOUTH EVERY DAY 28 tablet 02/17/2021 01/18/2022 FeroSuL 325 mg (65 mg iron) Tablet TAKE ONE (1) TABLET BY MOUTH THREE TIMES A WEEK 12 tablet 11/26/2020 10/26/2021 prazosin (Minipress) 2 mg Capsule TAKE THREE (3) CAPSULES BY MOUTH DAILY AT BEDTIME 84 each 10/31/2020 09/28/2021 Ventolin HFA 90 mcg/actuation HFA Aerosol InhalerIndications:Brake Lining Driller randell obstructive pulmonary disease, unspecified COPD type [...] have questions please contact the health manager respiratory care that requested your imaging first. ? [...] who have questions please contactthe health manager respiratory care that requested your imaging first. Campos Puente MD IMG CT ORDERABLES documented in this encounter Visit Diagnoses Diagnosis Cervical spondylosis Cervical spondylosis without myelopathy documented in this encounter Care Teams Supervisor Publications Production Relationship Specialty Start Date End Date Hoang Castellanos, BOILER HELPER [address] [place] [place] [address] PCP - General Family Medicine 03/12/20 documented as of this encounter
--- OUTSIDE RECORDS SUMMARY | 2024-08-15 13:31 | XMS_ITS | Encounter Summary ---
Author Organization [facility] Address [facility] [place] [address] Care Team Providers Care Blind Eyeletter Name Role Phone Hoang Castellanos APRN Primary Care Provider Encounter Details Date Type Department Care Team (Late st Contact Info) Description 05/28/2021 Notes Only Primary Care at [facility] [address] [place] [phone] Flavia Zamora Social History Tobacco Use Types [...] qualifies to receive a $20 voucher to [facility] [employer]. documented in this encounter Plan of Treatment Not on file documented as of this encounter Visit Diagnoses Not on filedocumented in this encounter Care Teams Blind Eyeletter Relationship Specialty Start Date End Date Hoang Castellanos APRN [address] [place] [address] PCP - General Family Medicine 03/12/20 documented as of this encounter
--- OUTSIDE RECORDS SUMMARY | 2024-08-15 13:31 | XMS_ITS | Encounter Summary ---
[place] [address] Care Team Providers Care Radio Mechanic Apprentice Name Role Phone Hoang Castellanos APRN Primary Care Provider Reason for Visit * Diagnostic Test (Routine) - Closed Specialty Diagnoses / Procedures Referred By Contac t Referred To Contact Radiology Diagnoses Coronary artery disease involving mus[place]ogee coronary artery of muscogee heart without angina pectoris Procedures NM Pharmacologic Stress and Rest Myocardial Perfusion Dustin Haynes, [facility] [place] [place] [address] [place] [address] Referral ID Status Reason Start Date Expiration Date V isits Requested Visits Authorized [id number] Closed Specialty Service Requested 02/16/2021 07/24/2021 1 1 Encounter Details Date Type Department Care Team (Late st Contact Info) Description 04/15/2021 10:32 AM EDT Hospital Encounter [place] [address] Benito Reed MD [facility] [place] [address] Discharge Disposition: Home Social History [...] Sustained Release 24 hrIndications:Coronary artery disease involving musc[place]ee coronary artery of mus[place]ogee heart without angina pectoris TAKE ONE (1) [...] 09/28/2021 Ventolin HFA 90 mcg/actuation HFA Aerosol InhalerIndications:Wardrobe Coordinator randell obstructive pulmonary disease, unspecified COPD type [...] 11:37 AM EDT Coronary artery disease involving mus[place]ee coronary artery of muscogee heart without angina pectoris documented in this [...] Arm documented in this encounter Care Teams Radio Mechanic Apprentice Relationship Specialty Start Date End Date Hoang Castellanos, CAMPUS SUPERVISOR [address] [place] [address] PCP - General Family Medicine 03/12/20 documented as of this encounter
--- OUTSIDE RECORDS SUMMARY | 2024-08-15 13:31 | XMS_ITS | Encounter Summary ---
Author Organization [facility] [address] Care Team Providers Care Second Crusher Name Role Phone Hoang Castellanos APRN Primary Care Provider [phone] Encounter Details Date Type Department Care Team (Late st Contact Info) Description 08/11/2021 Telephone [place] [address] Campos Puente MD [facility] [place] [address] Social History Tobacco Use Types Packs/Day Years [...] scheduling surgery. Please review and call patient [phone] Thank you Marli (Email sent to [facility] [place]) * Telephone Encounter - Marli Hernández - 08/11/2021 11:40 AM EST Called pt scheduled CT C-spine for 08/18 send email and IB to [facility] to review on 08/19 then schedule surgery ~~~~~~~~~~~~~~~~~~~~~~~~~~~~~~~ Jeannie Rico - 08/06/21 Campos Puente MD Sent: Jennifer August 09, 2021 10:50 AM To: P [facility] Neurosurgery [place] ?? Message CT cervical spine; have me review and then schedule surgery documented in this encounter Plan of Treatment Not on file documented as of this encounter Visit Diagnoses Not on filedocumented in this encounter Care Teams Second Crusher Relationship Specialty Start Date End Date Hoang Castellanos, SAM [address] [place] [address] PCP - General Family Medicine 03/12/20 documented as of this encounter
--- OUTSIDE RECORDS SUMMARY | 2024-08-15 13:31 | XMS_ITS | Encounter Summary ---
Author Organization [facility] [place] [place] [address] Care Team Providers Care Cryptographic Clerk Name Role Phone Hoang Castellanos APRN Primary Care Provider Reason for Visit * Reason Comments Medication Refill Encounter Details Date Type Department Care Team (Late st Contact Info) Description 06/05/2021 Refill Primary Care at [facility] [address] [place] [phone] Hoang Castellanos APRN 10 [facility] [address] Social History Tobacco Use Types Packs/Day Years [...] on filedocumented in this encounter Care Teams Cryptographic Clerk Relationship Specialty Start Date End Date Hoang Castellanos APRN [address] [place] [address] PCP - General Family Medicine 03/12/20 documented as of this encounter
--- OUTSIDE RECORDS SUMMARY | 2024-08-15 13:31 | XMS_ITS | Encounter Summary ---
Author Organization [facility] [place] [address] Care Team Providers Care Final Inspector Motorcyles Name Role Phone Hoang Castellanos APRN Primary Care Provider Reason for Visit * Reason Onset Date Comments TeleHealth 06/04/2021 Encounter Details Date Type Department Care Team (Late st Contact Info) Description 06/04/2021 [place] [address] Campos Puente MD [facility] [place] [address] TeleHealth Social History Tobacco Use Types Packs/Day [...] on filedocumented in this encounter Care Teams Final Inspector Motorcyles Relationship Specialty Start Date End Date Hoang Castellanos, SAM [address] [place] [address] PCP - General Family Medicine 03/12/20 documented as of this encounter
--- OUTSIDE RECORDS SUMMARY | 2024-08-15 13:31 | XMS_ITS | Encounter Summary ---
[place] [address] Care Team Providers Care Excavator Backhoe Operator Name Role Phone Hoang Castellanos APRN Primary Care Provider [phone] Reason for Referral * Diagnostic Test (Routine) - Closed Specialty Diagnoses / Procedures Referred By Contac t Referred To Contact Radiology Diagnoses Coronary artery disease involving match-e-be-nash-she-wish band coronary artery of match-e-be-nash-she-wish band heart without angina pectoris Procedures NM Pharmacologic Stress CT Component Dustin Haynes [facility] [place] [address] [place] [address] Referral ID Status Reason Start Date Expiration Date V isits Requested Visits Authorized [id number] Closed Specialty Service Requested 02/16/2021 07/24/2021 1 1 Reason for Visit * Diagnostic Test (Routine) - Closed Specialty Diagnoses / Procedures Referred By Contdavide t Referred To Contact Radiology Diagnoses Coronary artery disease involving match-e-be-nash-she-wish band coronary artery of match-e-be-nash-she-wish band heart without angina pectoris Procedures NM Pharmacologic Stress CT Component Dustin Haynes [facility] [place] [address] [place] [address] Referral ID Status Reason Start Date Expiration Date V isits Requested Visits Authorized [id number] Closed Specialty Service Requested 02/16/2021 07/24/2021 1 1 Encounter Details Date Type Department Care Team (Late st Contact Info) Description 04/15/2021 10:33 AM EDT - 04/15/2021 11:59 PM EDT Hospital Encounter [place] [address] Benito Reed MD [facility] [place] [address] Coronary artery disease involving match-e-be-nash-she-wish band coronary artery of match-e-be-nash-she-wish band heart without angina pectoris Discharge Disposition: Home [...] Sustained Release 24 hrIndications:Coronary artery disease involving match-e-be-nash-she-wish band coronary artery of match-e-be-nash-she-wish band heart without angina pectoris TAKE ONE (1) [...] 09/28/2021 Ventolin HFA 90 mcg/actuation HFA Aerosol InhalerIndications:Lawn Mower Mechanic randell obstructive pulmonary disease, unspecified COPD [...] 11:54 AM EDT Coronary artery disease involving match-e-be-nash-she-wish band coronary artery of match-e-be-nash-she-wish band heart without angina pectoris documented in this [...] who have questions please contact the health resident care assistant that requested your imaging first. [...] patients who have questions please contactthe health resident care assistant that requested your imaging first. Benito Reed MD IMG NM ORDERABL ES documented in this encounter Visit Diagnoses Diagnosis Coronary artery disease involving match-e-be-nash-she-wish band coronary artery of match-e-be-nash-she-wish band heart without angina pectoris documented in this encounter Care Teams Excavator Backhoe Operator Relationship Specialty Start Date End Date Hoang Castellanos, SAM [address] [place] [address] PCP - General Family Medicine 03/12/20 documented as of this encounter
--- OUTSIDE RECORDS SUMMARY | 2024-08-15 13:31 | XMS_ITS | Encounter Summary ---
Author Organization [facility] [place] [address] Care Team Providers Care Digester Capper Name Role Phone Hoang Castellanos APRN Primary Care Provider [phone] Encounter Details Date Type Department Care Team (Late st Contact Info) Description 2021 Telephone Primary Care at [facility] [place] [phone] Jeannie Luciano, RN Social History Tobacco Use [...] EDT Message received from Porfirio pharmacist at [facility] re: rx sent for nicotine [...] disorder documented in this encounter Care Teams Digester Capper Relationship Specialty Start Date End Date Hoang Castellanos APRN [address] [place] [address] PCP - General Family Medicine 03/12/20 documented as of this encounter
--- OUTSIDE RECORDS SUMMARY | 2024-08-15 13:31 | XMS_ITS | Encounter Summary ---
[place] [address] Care Team Providers Care Letter Carrier Name Role Phone Hoang Castellanos APRN Primary Care Provider Encounter Details Date Type Department Care Team (Late st Contact Info) Description 05/26/2021 [place] [address] Hiral Jose Social History Tobacco Use Types [...] on filedocumented in this encounter Care Teams Letter Carrier Relationship Specialty Start Date End Date Hoang Castellanos APRN [address] [place] [address] PCP - General Family Medicine 03/12/20 documented as of this encounter
--- OUTSIDE RECORDS SUMMARY | 2024-08-15 13:31 | XMS_ITS | Encounter Summary ---
[place] [address] Care Team Providers Care Digital Art Director Name Role Phone Hoang Castellanos APRN Primary Care Provider Reason for Referral * Consultation (Routine) - Closed Specialty Diagnoses / Procedures Referred By Contac t Referred To Contact Primary Care Diagnoses Financial difficulties Hoang Castellanos APRN [address] [place] [address] Flavia Zamora Referral ID Status Reason Start Date Expiration Date V isits Requested Visits Authorized [id number] Closed Consult, Test & Treat 2021 2022 12 12 * Consultation (Routine) - Closed Specialty Diagnoses / Procedures Referred By Contac t Referred To Contact Endocrinology Diagnoses Osteoporosis, unspecified osteoporosis type, unspecified pathological fracture presence Hoang Castellanos APRN [address] [place] [address] [facility] [address] [place] [phone] Referral ID Status Reason Start Date Expiration Date V isits Requested Visits Authorized [id number] Closed Specialty Service Requested 2021 2022 12 12 Reason for Visit * Reason Comments Pre-op Exam Encounter Details Date Type Department Care Team (Latest Contact Info) Description 2021 9:30 AM EDT Office Visit Primary Care at [facility] [address] [facility] [place] [address] Hoang Castellanos, SAM [address] [place] [address] Preop examination; Cervicalgia; Preop cardiovascular exam; Health [...] this encounter Progress Notes * Hoang Castellanos, COMMERCIAL LOAN ADMINISTRATOR - 2021 9:30 AM EDT Subjective: Patient [...] Directives - Y ?? Durable Power of Ambulatory Services Representative for Health Care - [] No; [x] [...] WRIGHT at [facility] END[facility]COPY Allergies Allergen Reactions ??? Morphine Shortness [...] 30 gauge Misc 1 each by [facility]Non-Drug; Combo Route) route daily. 100 each 3 [...] 05/26/21 94.3 kg (208 lb) Flu Vaccine 3436-0309 Age Considerations Vaccine Name Pediatric [] 6 [...] had any of the following: History of Guillian-Genesee Syndrome, allergy to eggs, or allergicreaction to [...] Ear: There is impacted cerumen. Mouth/Throat: Lips: [place]. Mouth: Mucous membranes are moist. Dentition: Abnormal [...] - Consider Stress Testing if it would policy change clerks supervisor or would be done otherwise PULMONARY RISK [...] like to do MRI thoracic spine at [facility] instead-will coordinate with [facility] Radiology SW support for lore enrique-she has a showcase maker helping her get into assisted living facility RX for Smoking Cessation A total of 45 minutes was spent on the day of the visit for completion of this encounter. (Established patient total visit time: 61522 - 20min, 76605 - 30 min, 69600 - 40 min; New patient total visit times: 28758 - 30 min, 75008 - 45 min, 61852 - 60 min) * Conor Velazquez - [...] Agency Comment Spec In Lab Hoang Castellanos COMMERCIAL LOAN ADMINISTRATOR CHEMISTRY ORDERABLES [facility] [address] [place] [place] [address] documented in this encounter Visit Diagnoses Diagnosis [...] resources documented in this encounter Care Teams Digital Art Director Relationship Specialty Start Date End Date Hoang Castellanos, COMMERCIAL LOAN ADMINISTRATOR [address] [place] [address] PCP - General Family Medicine 03/12/20 documented as of this encounter
--- OUTSIDE RECORDS SUMMARY | 2024-08-15 13:31 | XMS_ITS | Encounter Summary ---
Author Organization [facility] [place] [address] Care Team Providers Care Information Systems Technician Name Role Phone Hoang Castellanos APRN Primary Care Provider Encounter Details Date Type Department Care Team (Late st Contact Info) Description 08/04/2021 9:00 AM EST TH Visit (TeleHealth) [place] [address] Gurjit Bass MD [facility] [place] [address] Myelopathy Social History Tobacco Use Types Packs/Day [...] Gait ataxia History: [facility] The patient is aware that this is [...] me, as I had followed her from [phone]. Has a complex medical and neurological history [...] chemistry and liver profile, thyroid function tests, [id number], TSH level, CK and hemoglobin A1c and [...] RS Psychiatry ??? Osteoporosis DEXA done at [facility] on 10/29/15: osteoporosis at [...] She does some interviewing for a local [employer] program. Her sister Who lives in [place] advises her regarding medical decisions Review of [...] 30 tablet 1 ??? Miscellaneous Medical Supply [facility] 1 walker on wheels with seat 1 [...] lancets 30 gauge Misc 1 each by [facility].(Non-Drug; Combo Route) route daily. 100 each 3 [...] necessary Gurjit Bass [place] [address] Pager: [phone], #[phone] Email: [email or web address] CC: Hoang Baltazar MD documented in this encounter Plan of Treatment Not on file documented as of this encounter Visit Diagnoses Diagnosis Myelopathy Unspecified disease of spinal cord documented in this encounter Care Teams Information Systems Technician Relationship Specialty Start Date End Date Hoang Castellanos APRN [address] [place] [address] PCP - General Family Medicine 03/12/20 documented as of this encounter
--- OUTSIDE RECORDS SUMMARY | 2024-08-15 13:31 | XMS_ITS | Encounter Summary ---
Author Organization [facility] Address [facility] [place] [address] Care Team Providers Care Glass Cutter Helper Name Role Phone Hoang Castellanos APRN Primary Care Provider Encounter Details Date Type Department Care Team (Late st Contact Info) Description 06/06/2022 Plan of Care Documentation [facility] Choices for Care [address] [place] [phone] Social History Tobacco Use Types Packs/Day [...] filedocumented in this encounter Care Teams Glass Cutter Helper Relationship Specialty Start Date End Date Hoang Castellanos APRN [address] [place] [address] PCP - General Family Medicine 03/12/20 documented as of this encounter
--- OUTSIDE RECORDS SUMMARY | 2024-08-15 13:31 | XMS_ITS | Encounter Summary ---
[place] [address] Care Team Providers Care Back Roller Name Role Phone Hoang Castellanos APRN Primary Care Provider Encounter Details Date Type Department Care Team (Late st Contact Info) Description 06/15/2021 Telephone [place] [address] Sheree Escalante Social History Tobacco Use Types [...] on filedocumented in this encounter Care Teams Back Roller Relationship Specialty Start Date End Date Hoang Castellanos, CEPHALOMETRIC TRACER [address] [place] [address] PCP - General Family Medicine 03/12/20 documented as of this encounter
--- OUTSIDE RECORDS SUMMARY | 2024-08-15 13:31 | XMS_ITS | Encounter Summary ---
Author Organization [facility] [place] [address] Care Team Providers Care Microsoft Dynamics Consultant Name Role Phone Hoang Castellanos APRN Primary Care Provider Encounter Details Date Type Department Care Team (Latest Contact Info) Description 06/09/2021 2:00 PM EST TH Visit (TeleHealth) [place] [address] Campos Puente MD [facility] [place] [address] Cervical spondylosis Social History Tobacco Use Types [...] myelopathy documented in this encounter Care Teams [employer] Dynamics Consultant Relationship Specialty Start Date End Date Hoang Castellanos, CHOKE REAMER [address] [place] [address] PCP - General Family Medicine 03/12/20 documented as of this encounter
--- OUTSIDE RECORDS SUMMARY | 2024-08-15 13:31 | XMS_ITS | Encounter Summary ---
[place] [address] Care Team Providers Care Cleaner And Presser Name Role Phone Trever Castellanos APRN Primary Care Provider Reason for Visit * Reason Onset Date Comments New Medication Request 05/20/2021 Encounter Details Date Type Department Care Team (Late st Contact Info) Description 05/20/2021 Telephone Primary Care at [facility] [place] [phone] Jeannie Luciano RN New Medication Request Social [...] BID was going to be sent to [facility] after her conversation with trever Castellanos APRN. Routed note to PCP. documented in this encounter Plan of Treatment Not on file documented as of this encounter Visit Diagnoses Diagnosis Cervicalgia Chronic pain syndrome documented in this encounter Care Teams Cleaner And Presser Relationship Specialty Start Date End Date Trever Castellanos, ONCOLOGY COORDINATOR [address] [place] [address] PCP - General Family Medicine 03/12/20 documented as of this encounter
--- OUTSIDE RECORDS SUMMARY | 2024-08-15 13:31 | XMS_ITS | Encounter Summary ---
[place] [address] Care Team Providers Care Cigarette Vendor Name Role Phone Hoang Castellanos APRN Primary Care Provider Encounter Details Date Type Department Care Team (Late st Contact Info) Description 06/23/2021 10:30 AM EST Clinical [place] [phone] Social History Tobacco Use Types Packs/Day Years [...] in the past. Pt is here with Candy Cooker Helper Angela. Pre-operative instruction booklet reviewed. Patient verbalizes [...] on filedocumented in this encounter Care Teams Cigarette Vendor Relationship Specialty Start Date End Date Hoang Castellanos, SAM [address] [place] [address] PCP - General Family Medicine 03/12/20 documented as of this encounter"
--- OUTSIDE RECORDS SUMMARY | 2024-08-15 13:31 | XMS_ITS | Encounter Summary ---
Author Organization [facility] [place] [address] Care Team Providers Care Client Support Coordinator Name Role Phone Hoang Castellanos APRN Primary Care Provider Encounter Details Date Type Department Care Team (Latest Contact Info) Description 04/30/2021 11:20 AM EDT Office Visit Cardiology at [address] [address] Chase Talbot MD Dizziness; Hyperlipidemia, unspecified hyperlipidemia type; Bilateral leg edema; Obstructive sleep apnea (adult) (pediatric); Smokes cigarettes; Coronary artery disease involving curyung coronary artery of curyung heart without angina pectoris Social History Tobacco [...] the original note were not included. [facility] [place] [address] CARDIOLOGY OUTPATIENT CLINIC VISIT [facility] Jeannie Rico 04/30/2021 Referring Providers: Hoang Castellanos [...] BIOPSY performed by Ken Sanders MD at [facility] ??? PRO UPPER GI ENDOSCOPY, BIOPSY N/A 09/19/2018 UPPER GASTROINTESTINAL ENDOSCOPY,WITH BIOPSY SINGLE OR MULTIPLE (WRVU 2.49) performed by Tyron Mercado MD at [facility] ??? TONSILLECTOMY ??? UPPER GI ENDOSCOPY, EXAM 12/04/2010 UPPER GI ENDOSCOPY performed by DEE WRIGHT at [facility] SOCIAL HISTORY: reports that she [...] 30 tablet 1 ??? Miscellaneous Medical Supply [facility] [...] lancets 30 gauge Misc 1 each by [facility] [...] (pediatric) Smokes cigarettes Coronary artery disease involving curyung coronary artery of curyung heart without angina pectoris 1. Preoperative risk [...] Sincerely, Dr. Chase Talbot MD MS MYA Principal Consultant Interventional Cardiology 04/30/2021 CC: Hoang Castellanos APRN documented in this encounter Plan of Treatment Not on file documented as of this encounter Visit Diagnoses Diagnosis Dizziness Dizziness and giddiness Hyperlipidemia, unspecified hyperlipidemia type Bilateral leg edema Edema Obstructive sleep apnea (adult) (pediatric) Smokes cigarettes Tobacco use disorder Coronary artery disease involving curyung coronary artery of curyung heart without angina pectoris documented in this encounter Care Teams Client Support Coordinator Relationship Specialty Start Date End Date Hoang Castellanos APRN [address] [place] [address] PCP - General Family Medicine 03/12/20 documented as of this encounter
--- OUTSIDE RECORDS SUMMARY | 2024-08-15 13:31 | XMS_ITS | Encounter Summary ---
Author Organization [facility] [place] [address] Care Team Providers Care Geotechnical Department Manager Name Role Phone Hoang Castellanos APRN Primary Care Provider Reason for Visit * Reason Comments Medication Refill Encounter Details Date Type Department Care Team (Late st Contact Info) Description 06/16/2021 Refill Primary Care at [facility] [address] [place] [phone] Hoang Castellanos APRN [address] [place] [address] Cervicalgia; Chronic pain syndrome Social History Tobacco [...] * Telephone Encounter - Maria D Joshi, [facility] - 06/16/2021 1:29 PM EST Medication [...] syndrome documented in this encounter Care Teams Geotechnical Department Manager Relationship Specialty Start Date End Date Hoang Castellanos APRN [address] [place] [address] PCP - General Family Medicine 03/12/20 documented as of this encounter
--- OUTSIDE RECORDS SUMMARY | 2024-08-15 13:31 | XMS_ITS | Encounter Summary ---
Author Organization [facility] Address [facility] [place] [address] Care Team Providers Care Concaving Machine Operator Name Role Phone Hoang Castellanos APRN Primary Care Provider Reason for Visit * Diagnostic Test (Routine) - Closed Specialty Diagnoses / Procedures Referred By Contdavide t Referred To Contact Radiology Diagnoses Age-related osteoporosis without current pathological fracture Procedures DXA Central Spine, Hip, and/or Whole Body (Generic) Hoang Castellanos APRN [address] [facility] [place] [address] [facility] Rad Xray [address] [place] [phone] Referral ID Status Reason Start Date Expiration Date V isits Requested Visits Authorized [id number] Closed Specialty Service Requested 03/23/2021 09/21/2022 1 1 Encounter Details Date Type Department Care Team (Latest Contact Info) Description 05/26/2021 9:30 AM EDT Ancillary Procedure Radiology D[facility] at [facility] at [address] [address] Hoang Castellanos APRN [address] [place] [address] Age-related osteoporosis without current pathological [...] BMD measurements and plots are available in [facility] under the imaging tab. Paper copies will be sent to providers without [facility] access. If you have received this report without the data sheet and do not have access to [facility], please contact [facility] at [phone]. Thank you for letting us participate in the care of this patient. ??If you are a health care provider and have any questions regarding this report, please contact the number below. ??For patients who have questions please contact the health career professional that requested your imaging first. ? Electronically signed by: Hong Catherine MD, [facility] ([phone]), at 05/26/2021 1:03 PM Narrative 05/26/2021 1:03 [...] BMD measurements and plots are available in [facility] the imaging tab. Paper copies will be sent to providers without [facility] access.If you have received this report without the data sheet and do not haveaccess to E-, please contact [facility] at [phone]. Thank you for letting us participate in the care of this patient. If youare a health care provider and have any questions regarding this report,please contact the number below. For patients who have questions please contactthe health career professional that requested your imaging first. Electronically signed by: Hong Catherine MD, [facility]([phone]), at 05/26/2021 1:03 PM Hoang Castellanos APRN IMG DEXA ORDERABLES documented in this encounter Visit Diagnoses Diagnosis Age-related osteoporosis without current pathological fracture Senile osteoporosis documented in this encounter Care Teams Concaving Machine Operator Relationship Specialty Start Date End Date Hoang Castellanos, SAM [address] [place] [address] PCP - General Family Medicine 03/12/20 documented as of this encounter
--- OUTSIDE RECORDS SUMMARY | 2024-08-15 13:31 | XMS_ITS | Encounter Summary ---
[place] [address] Care Team Providers Care Fuel Attendant Name Role Phone Hoang Castellanos APRN Primary Care Provider Reason for Visit * Reason Onset Date Comments Other 06/22/2021 Encounter Details Date Type Department Care Team (Late st Contact Info) Description 06/22/2021 [place] [phone] Gurjit Bass MD Other Social History Tobacco [...] 06/22/2021 11:56 AM EST Call Center / [place] Message - General Issue Call Provider patient sees in Clinic: Gurjit Bass Caller and relationship (if other than patient-full name): [employer] and position if other than patient or family: n Call back number: [phone] Ok to leave a message: y Reason [...] Nurse: y ??? Routine message sent to [place]: n Nurse/[place] contacted via: Message: y Call: n Pager: n documented in this encounter Plan of Treatment Not on file documented as of this encounter Visit Diagnoses Not on filedocumented in this encounter Care Teams Fuel Attendant Relationship Specialty Start Date End Date Hoang Castellanos, RUBBER PRODUCTION MACHINE OPERATOR [address] [place] [address] PCP - General Family Medicine 03/12/20 documented as of this encounter
--- OUTSIDE RECORDS SUMMARY | 2024-08-15 13:31 | XMS_ITS | Encounter Summary ---
Author Organization [facility] [place] [address] Care Team Providers Care Pvc Monitor Name Role Phone Hoang Castellanos APRN Primary Care Provider Reason for Visit * Consultation (Routine) - Closed Specialty Diagnoses / Procedures Referred By Contac t Referred To Contact Endocrinology Diagnoses Osteoporosis, unspecified osteoporosis type, unspecified pathological fracture presence Hoang Castellanos APRN [address] [place] [address] [facility] Endocrinology [address] [place] [phone] Referral ID Status Reason Start Date Expiration Date V isits Requested Visits Authorized [id number] Closed Specialty Service Requested 2021 2022 12 12 Encounter Details Date Type Department Care Team (Latest Contact Info) Description 06/22/2021 2:15 PM EST TH Visit (TeleHealth) [place] [address] Michael Espinoza MD [facility] [place] [address] Vitamin D deficiency; Adult osteomalacia [...] performed by Ken Sanders MD at [facility] ENDOSCOPY ??? PRO UPPER GI ENDOSCOPY, BIOPSY N/A 09/19/2018 UPPER GASTROINTESTINAL ENDOSCOPY,WITH BIOPSY SINGLE OR MULTIPLE (WRVU 2.49) performed by Tyron Mercado MD at [facility] ENDOSCOPY ??? TONSILLECTOMY ??? UPPER GI ENDOSCOPY, EXAM 12/04/2010 UPPER GI ENDOSCOPY performed by DEE WRIGHT at [facility] ENDOSCOPY Social history Social History Socioeconomic [...] performed by Ken Sanders MD at [facility] ENDOSCOPY ??? PRO UPPER GI ENDOSCOPY, BIOPSY N/A 09/19/2018 UPPER GASTROINTESTINAL ENDOSCOPY,WITH BIOPSY SINGLE OR MULTIPLE (WRVU 2.49) performed by Tyron Mercado MD at [facility] ENDOSCOPY ??? TONSILLECTOMY ??? UPPER GI ENDOSCOPY, EXAM 12/04/2010 UPPER GI ENDOSCOPY performed by DEE WRIGHT at [facility] ENDOSCOPY Current Outpatient Medications: ??? tiZANidine [...] tablet, Rfl: 1 ??? Miscellaneous Medical Supply [facility]er on wheels with seat, Disp: [...] ??? 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
--- OUTSIDE RECORDS SUMMARY | 2024-08-15 13:31 | XMS_ITS | Encounter Summary ---
[place] [address] Care Team Providers Care Turn Laster Name Role Phone Hoang Castellanos APRN Primary Care Provider Reason for Referral * Psychiatric (Urgent) - Closed Specialty Diagnoses / Procedures Referred By Contac t Referred To Contact Psychiatry Diagnoses Syncope, unspecified syncope type Cornelio Rosado MD [facility] [address] [place] [address] [facility] Psychiatry [address] [place] [address] Referral ID Status Reason Start Date Expiration Date V isits Requested Visits Authorized [id number] Closed Consult, Test & Treat 08/07/2021 08/07/2022 1 1 Reason for Visit * Reason Comments Chest Pain Encounter Details Date Type Department Care Team (Late st Contact Info) Description 08/07/2021 10:46 AM EST - 08/07/2021 4:16 PM EST Emergency [place] [phone] Xander Reese MD [facility] [address] [place] [address] Syncope, unspecified syncope type Discharge [...] APD 12/22/2021 9:45 AM Michael Espinoza MD [facility] PCP: Hoang Castellanos APRN at [phone] Your Doctor(s) at [facility]: Xander Reese MD - Attending physician Cornelio [...] Sustained Release 24 hrIndications:Coronary artery disease involving teller coronary artery of teller heart without angina pectoris TAKE ONE (1) [...] 09/28/2021 Ventolin HFA 90 mcg/actuation HFA Aerosol InhalerIndications:Blast Furnace Blower randell obstructive pulmonary disease, unspecified COPD type [...] [place] MSW - 08/07/2021 3:17 PM EST MANAGER DATABASE ADMINISTRATION went to speak with pt. Jeannie reported [...] feeling some relief being in ADM room. MANAGER DATABASE ADMINISTRATION assisted pt in called her outpatient SARIKA Miller ([phone]). SARIKA Miller stated she was working remote today and would not be able to come get Jeannie to bring her home. She did say she would speak to her coworkers/order department supervisor to determine if someone could provide transportation for the pt to get home. MANAGER DATABASE ADMINISTRATION spoke to pt who reported that she had been experiencing a pinched nerve in her neck which has affected her arm and leg on the left side. She discussed having PTSD and 'mental health' problems, but did not go into detail. SARIKA Miller suggested a psych eval, which pt was open to. MANAGER DATABASE ADMINISTRATION made medical team aware of pt's/CM concerns. MANAGER DATABASE ADMINISTRATION also alerted team that pt was very hungry. RN to bring pt food. SARIKA Miller called MANAGER DATABASE ADMINISTRATION, who handed phone to . stated he could put in emergency psych consult. SARIKA stated she could have a ride for pt if she was able to discharge by 4pm. MANAGER DATABASE ADMINISTRATION inquired with team who will put discharge orders in now. MANAGER DATABASE ADMINISTRATION confirmed with Angela that worker Roberto Carlos would pick pt up from the ED entrance at 4pm today. MANAGER DATABASE ADMINISTRATION will relay that to pt and medical team. Nohemi Washington MANAGER DATABASE ADMINISTRATION Emergency Department [employer] [phone] Pager: [phone] documented in this encounter ED Notes * Cornelio Rosado MD - 08/07/2021 11:29 AM EST ED PROVIDER NOTE Patient: Jeannie Rico Age (): 61 y.o. (1960) SUBJECTIVE CC: Chief Complaint Patient presents with ??? Chest Pain HPI: Jeannie Rico is a 61 y.o. female with PMH significant for asthma, diabetes, hypertension, hyperlipidemia, prior MD (PCI to prox and mid LAD, 2012) [...] have questions please contact the health healthcare architect that requested your imaging first. - I have reviewed the EKG, which is significant for: afib ASSESSMENT & PLAN MDM: Jeannie Rico is a 61 y.o. female with past medical history of prior MD as well as cervical myelopathy who presents after a syncopal event. In the emergency department she was hemodynamically stable (chronically bradycardic) with appropriate mentation. Physical exam unremarkable. Bedside ultrasound demonstrates wall motion normalities which are not favored to be new given prior MD and nonischemic EKG. Patient did not have a positive delta troponin. Rest of lab work including BMP, CBC and headCT unremarkable. Patient's social service coordinator reached out to [facility] social work for psychiatric evaluation given recent stress. Outside social service coordinator describes increased distress due to housing insecurity as well as pending surgery for cervical process. In the emergency department she denied SI or HI and was mentating a ppropriately and preferred urgent referral to outpatient psychiatry. This MD spoke with outpatient restaurant server and confirmed no statements of SI or HI. Urgent referral to psychiatry placed. PLAN: Patient will be discharged home, urgent referral to psychiatry placed Cornelio Rosado MD Resident 08/07/21 6821 Associated attestation - Xander Reese MD - [...] received message from social work that her restaurant server was in touch with her and concern. We asked the patient who described having increasing PTSD and being in the trauma bay on her initial presentation but didnot feel overtly homicidal or suicidal. Dr. Rosado also discussed the case with her outpatient restaurant server. Assessment: Syncope without findings of intracranial hemorrhage, [...] EST) Troponin-T <0.01 0.00 - 0.00 ng/mL [facility] Comment: The 99th percentile for Troponin T is less than 0.01 ng/mL, any detectable cTnT concentration using this assay should be considered elevated. According to the third universal definition of myocardial infarction the following criteria with a clinical presentation consistent with acute myocardial ischemia meets the diagnosis for a myocardial infarction (MD). Detection of a rise and/or fall of cTnT, with at least one value greater than the 99th percentile (> or = 0.01) and with at least one of the following ?? Symptoms of ischemia ?? New or presumed new significant JM-oczwtua-P wave (ST-T) changes or new left bundle [...] additional sample may be indicated. Reference: Third Warren Definition of Myocardial Infarction. Journal of the [place] College [employer]iology 2012;60:1581-98 Blood 08/07/2021 1:49 PM EST 08/07/2021 2:01 PM EST Narrative Resulting Agency Comment Spec In Lab Xander Reese MD CHEMISTRY ORDERABL ES [facility] [place] [address] * CT Head wo Contrast (Generic) (08/07/2021 [...] have questions please contact the health healthcare architect that requested your imaging first. ? Electronically signed by: ANGUS Claudio [facility] ([phone]), at 08/07/2021 11:41 AM Narrative 08/07/2021 11:41 [...] who have questions please contactthe health healthcare architect that requested your imaging first. Xander Reese MD IMG CT ORDERABLES * Blue Tube HOLD (08/07/2021 11:00 AM EST) Pathologist [facility] Blue Hold Sample in lab. [facility] Blood Venous Draw / Unknown 08/07/2021 11:00 AM EST 08/07/2021 11:14 AM EST Cornelio Rosado MD HEMATOLOGY OR DERABLES [facility] [place] [place] [address] * Differential, Automated (08/07/2021 11:00 AM EST) Pathologist [facility] Neutrophil % 62.7 % [facility] Neutrophil Absolute 4.25 1.70 - 6.10 x10(3)/[facility] LABORATORY Lymph % 26.0 % [facility] Lymphocytes Abs 1.8 0.9 - 3.2 x10(3)/[facility] Monocyte % 8.8 % [facility] Monocyte Abs 0.6 0.3 - 0.9 x10(3)/[facility] Eos % 0.9 % [facility] Eosinophils Abs 0.1 0.0 - 0.4 x10(3)/[facility] Basophil % 1.2 % [facility] Baso Absolute 0.1 0.0 - 0.1 x10(3)/[facility] Immature Gran % 0.40 % [facility] Comment: Immature granulocytes(IG's)percentage and absolute count will include metamyelocytes, myelocytes, and promyelocytes. Blood smears from CBCs yielding IG's will be scanned manually for concordance. If this scan disagrees with the automated IG or if promyelocytes are noted, a manual differential will be performed. Immature Gran Absolute 0.03 0.00 - 0.04 x10(3)/mcL [facility] Blood 08/07/2021 11:0 0 AM EST 08/07/2021 11:14 AM EST Narrative Resulting Agency Comment Spec In Lab Cornelio Rosado MD HEMATOLOGY OR DERABLES Performing Organization Address City/State/[facility] Co de Phone Number [facility] [place] [place] [address] * (ABNORMAL) Hemogram (08/07/2021 11:00 AM EST) White Blood Cell 6.8 4.0 - 9.5 x10(3)/[facility] Red Blood Cell 4.85 4.00 - 5.21 x10(6)/[facility] Hemoglobin 14.7 11.7 - 15.5 g/dL [facility] Hematocrit 45.7 35.7 - 45.8 % [facility] Mean Cell Volume 94.2 82.6 - 94.4 fL [facility] Mean Cell Hemoglobin 30.3 27.1 - 32.0 pg [facility] Mean Cell Hemoglobin Concentration 32.2 31.7 - 35.0 g/dL [facility] Platelet 215 145 - 357 x10(3)/[facility] RDW Standard Deviation 46.5(H) 37.0 - 46.0 [facility] RDW coefficient of variation 13.2 11.5 - 14.1 % [facility] Mean Platelet Volume 10.1 7.6 - 12.9 [facility] NRBC% auto 0.0 % [facility] NRBC Absolute 0.000 0.000 - 0.000 x10(3)/ L [facility] Blood 08/07/2021 11:0 0 AM EST 08/07/2021 11:14 AM EST Narrative Resulting Agency Comment Spec In Lab Cornelio Rosado MD HEMATOLOGY OR DERABLES [facility] [place] [address] * (ABNORMAL) Basic Metabolic Panel (non-fasting) (08/07/2021 11:00 AM EST) Glucose 93 65 - 199 mg/dL [facility] Comment:Diabetes: >=200 mg/d L plus symptoms Blood Urea Nitrogen 19(H) 8 - 18 mg/dL [facility] Creatinine 0.91 0.70 - 1.20 mg/dL [facility] Sodium 138 135 - 145 mmol/L [facility] Potassium 4.4 3.5 - 5.0 mmol/L [facility] Comment: Please note: ??Patients with WBC >100,000 may have falsely elevated Potassium levels. ??For accurate Potassium quantification in these patients send serum separator tube (gold top) for subsequent determinations. ??Contact the Clinical Chemistry Laboratory if there are any questions. Chloride 100 98 - 107 mmol/L [facility] Carbon Dioxide 28 22 - 31 mmol/L [facility] Anion Gap 10 5 - 15 mmol/L [facility] Calcium 10.1 8.5 - 10.5 mg/dL [facility] Est Glomerular Filtration Rate 68 >=60 mL/min/1. 73 m?? [facility] Comment: This patient? s [...] MD CHEMISTRY ORDERABL ES Performing Organization Address [facility] Co de Phone Number [facility] [place] [address] * Troponin (08/07/2021 11:00 AM EST) Troponin-T <0.01 0.00 - 0.00 ng/mL [facility] Comment: The 99th percentile for Troponin T is less than 0.01 ng/mL, any detectable cTnT concentration using this assay should be considered elevated. According to the third universal definition of myocardial infarction the following criteria with a clinical presentation consistent with acute myocardial ischemia meets the diagnosis for a myocardial infarction (MD). Detection of a rise and/or fall of cTnT, with at least one value greater than the 99th percentile (> or = 0.01) and with at least one of the following ?? Symptoms of ischemia ?? New or presumed new significant RI-wsbwibn-U wave (ST-T) changes or new left bundle [...] additional sample may be indicated. Reference: Third Warren Definition of Myocardial Infarction. Journal of the [place] College of Cardiology 2012;60:1581-98 Blood 08/07/2021 11:0 0 AM EST 08/07/2021 11:14 AM EST Narrative Resulting Agency Comment Spec In Lab Xander Reese MD CHEMISTRY ORDERABL ES Performing Organization Address City/[facility]/ZIP Co de Phone Number [facility] [place] [address] * EKG 12 Lead (08/07/2021 10:47 AM EST) Ventricular rate 46 BPM MUSE SYSTEM Atrial Rate 46 BPM MUSE SYSTEM P-R Interval 126 ms MUSE SYSTEM QRS Duration 76 ms MUSE SYSTEM Q-T Interval 448 ms MUSE SYSTEM QTC Calculated (Bezet) 392 ms MUSE SYSTEM Calculated P Dracut 43 degrees MUSE SYSTEM Calculated R [place] 62 degrees MUSE SYSTEM Calculated T [place]ac[place] 42 degrees MUSE SYSTEM INTERPRETATION Sinus bradycardia Otherwise normal ECG When compared with ECG of 08-SEP-2018 19:26, No significant change was found I personally reviewed the tracing and edited the fellows interpretation Confirmed by fellow Trenton Cloud ([id number]) on 08/08/2021 12:29:27 PM Confirmed by Tabitha Aguilar ([id number]) on 08/08/2021 1:45:23 PM MUSE SYSTEM 08/07/2021 10:4 7 AM EST 08/08/2021 1:45 PM EST Xander Reese MD ECG ORDERABLES MUSE SYSTEM documented in this encounter Visit Diagnoses Diagnosis Syncope, unspecified syncope type documented in this encounter Care Teams Turn Laster Relationship Specialty Start Date End Date Hoang Castellanos, PICKER PACKER [address] [place] [address] PCP - General Family Medicine 03/12/20 documented as of this encounter
--- OUTSIDE RECORDS SUMMARY | 2024-08-15 13:31 | XMS_ITS | Encounter Summary ---
[place] [address] Care Team Providers Care Clock And Watch Assembler Name Role Phone Hoang Castellanos APRN Primary Care Provider Encounter Details Date Type Department Care Team (Late st Contact Info) Description 06/23/2021 10:00 AM EST Office [place] [phone] Social History Tobacco Use Types Packs/Day Years [...] on filedocumented in this encounter Care Teams Clock And Watch Assembler Relationship Specialty Start Date End Date Hoang Castellanos, SAM [address] [place] [address] PCP - General Family Medicine 03/12/20 documented as of this encounter
--- OUTSIDE RECORDS SUMMARY | 2024-08-15 13:31 | XMS_ITS | Encounter Summary ---
[place] [address] Care Team Providers Care Launchman Name Role Phone Hoang Castellanos APRN Primary Care Provider Encounter Details Date Type Department Care Team (Late st Contact Info) Description 06/22/2021 [place] [address] Sheree Escalante Social History Tobacco Use Types [...] on filedocumented in this encounter Care Teams Launchman Relationship Specialty Start Date End Date Hoang Castellanos APRN [address] [place] [address] PCP - General Family Medicine 03/12/20 documented as of this encounter
--- OUTSIDE RECORDS SUMMARY | 2024-08-15 13:32 | XMS_ITS | Encounter Summary ---
Author Organization [facility] [place] [address] Care Team Providers Care Automation And Controls Supervisor Name Role Phone Hoang Castellanos APRN Primary Care Provider Reason for Referral * Consultation (Routine) - Closed Specialty Diagnoses / Procedures Referred By Contac t Referred To Contact Thoracic Surgery Diagnoses Smokes cigarettes Hoang Castellanos APRN [address] [place] [address] Beatriz Matthews APRN [facility] [place] [address] Referral ID Status Reason Start Date Expiration Date V isits Requested Visits Authorized [id number] Closed Consult, Test & Treat 03/24/2021 03/24/2022 12 12 * Home Health Care (Routine) - Closed Specialty Diagnoses / Procedures Referred By Contac t Referred To Contact Physical Therapy Diagnoses Acute pain of right shoulder Hoang Castelalnos APRN [address] [place] [address] [facility] [address] [address] Referral ID Status Reason Start Date Expiration Date V isits Requested Visits Authorized [id number] Closed Continuity of Care 03/23/2021 09/19/2021 12 12 * Diagnostic Test (Routine) - Closed Specialty Diagnoses / Procedures Referred By Contac t Referred To Contact Radiology Diagnoses Age-related osteoporosis without current pathological fracture Procedures DXA Central Spine, Hip, and/or Whole Body (Generic) Hoang Castellanos APRN [address] [facility] [place] [address] [facility] Rad Xray [address] [place] [address] Referral ID Status Reason Start Date Expiration Date V isits Requested Visits Authorized [id number] Closed Specialty Service Requested 03/23/2021 09/21/2022 1 1 Reason for Visit * Reason Comments Hypertension Diabetes Dizziness Edema Encounter Details Date Type Department Care Team (Late Contact Info) Description 03/23/2021 10:00 AM EDT Office Visit Primary Care at [facility] [address] [place] [address] Hoang Castellanos APRN [address] [facility] [place] [address] Type 2 diabetes mellitus without complication, without [...] this encounter Progress Notes * Hoang Castellanos, SAW MAN - 03/23/2021 10:00 AM EDT Subjective: HPI: Jeannie Rico is a 60 y.o. female presenting to the [facility] Primary Care Clinic HPI Patient presents [...] - Referral to Neurology - did a [employer] video ordered an MRI of my neck. Neurology-Dr. Baltazar 02/04 Severe spinal stenosis on MRI c-spine F/u with Dr. Baltazar on 04/14 ?? Dizziness - Referral to Neurology - Dr. Bass on , 03/26. [facility] PT/OT working on balance [...] this encounter. (Established patient total visit time: 01429 - 20min, 82263 - 30 min, 00759 - 40 min; New patient total visit times: 53745 - 30 min, 87383 - 45 min, 39253 - 60 min) documented in this encounter [...] BMD measurements and plots are available in [employer] under the imaging tab. Paper copies will be sent to providers without EuTest access. If you have received this report without the data sheet and do not have access to [email or web address], please contact [facility] at [phone]. Thank you for letting us participate in the care of this patient. ??If you are a health care provider and have any questions regarding this report, please contact the number below. ??For patients who have questions please contact the health laboratory animal care veterinarian that requested your imaging first. ? Electronically signed by: Hong Catherine MD, [facility] ([phone]), at 05/26/2021 1:03 PM Narrative 05/26/2021 1:03 [...] BMD measurements and plots are available in [email or web address] the imaging tab. Paper copies will be sent to providers without SQMOS access.If you have received this report without the data sheet and do not haveaccess to E-, please contact [facility] at [phone]. Thank you for letting us participate in the care of this patient. If youare a health care provider and have any questions regarding this report,please contact the number below. For patients who have questions please contactthe health laboratory animal care veterinarian that requested your imaging first. Electronically signed by: Hong Catherine MD, [facility]([phone]), at 05/26/2021 1:03 PM Hoang Castellanos APRN [...] mammogram documented in this encounter Care Teams Automation And Controls Supervisor Relationship Specialty Start Date End Date Hoang Castellanos APRN [address] [place] [address] PCP - General Family Medicine 03/12/20 documented as of this encounter
--- OUTSIDE RECORDS SUMMARY | 2024-08-15 13:32 | XMS_ITS | Encounter Summary ---
[place] [address] Care Team Providers Care Kiln Burner Helper Name Role Phone Hoang Castellanos APRN Primary Care Provider Encounter Details Date Type Department Care Team (Late st Contact Info) Description 03/27/2021 Telephone Primary Care at [facility] [address] [place] [phone] Shannon Cruz, RN Social History Tobacco Use [...] she will get lab work done at [facility] soon. documented in this encounter Plan of Treatment Not on file documented as of this encounter Visit Diagnoses Not on filedocumented in this encounter Care Teams Kiln Burner Helper Relationship Specialty Start Date End Date Hoang Castellanos, PHYSICAL MEDICINE SPECIALIST [address] [place] [place] [address] PCP - General Family Medicine 03/12/20 documented as of this encounter
--- OUTSIDE RECORDS SUMMARY | 2024-08-15 13:32 | XMS_ITS | Encounter Summary ---
[place] [address] Care Team Providers Care Pyrometer Mechanic Name Role Phone Hoang Castellanos APRN Primary Care Provider Reason for Referral * Diagnostic Test (Routine) - Closed Specialty Diagnoses / Procedures Referred By Contac t Referred To Contact Cardiology Diagnoses Coronary artery disease involving [place] coronary artery of [place] heart without angina pectoris Procedures Echocardiogram Transthoracic([facility]) Dustin Haynes, [facility] [place] [address] [facility] [place] [address] Referral ID Status Reason Start Date Expiration Date V isits Requested Visits Authorized [id number] Closed Specialty Service Requested 10/01/2020 10/01/2021 1 1 Reason for Visit * Diagnostic Test (Routine) - Closed Specialty Diagnoses / Procedures Referred By Contac t Referred To Contact Cardiology Diagnoses Coronary artery disease involving [place] coronary artery of [place] heart without angina pectoris Procedures Echocardiogram Transthoracic([facility]) Dustin Haynes [facility] [place] [address] [facility] [place] [address] Referral ID Status Reason Start Date Expiration Date V isits Requested Visits Authorized [id number] Closed Specialty Service Requested 10/01/2020 10/01/2021 1 1 Encounter Details Date Type Department Care Team (Late st Contact Info) Description 01/07/2021 12:08 PM EDT - 01/07/2021 11:59 PM EDT Hospital Encounter [place] [id number] Benito Reed MD [facility] [place] [address] Coronary artery disease involving [place] coronary artery of [place] heart without angina pectoris Discharge Disposition: [...] 09/28/2021 Ventolin HFA 90 mcg/actuation HFA Aerosol InhalerIndications:Brimming Machine Operator randell obstructive pulmonary disease, unspecified COPD [...] 1:27 PM EDT Coronary artery disease involving [place] coronary artery of [place] heart without angina pectoris documented in this encounter Results * ECHO COMPLETE W CONTRAST (01/07/2021 1:27 PM EDT) EF 65 HEARTInterValve SYSTEM Anatomical Region Laterality Modality Other 01/07/2021 Narrative 01/07/2021 1:36 PM EDT Procedure: ?Transthoracic Echocardiogram Patient: ?APOLINAR RUSSELL L ? (Age): 1960(60y) Med Rec#: ? [id number] ?Sex: ?F ? Site Loc: ? [facility] ?Ht / Wt: ??163(cm)/99(kg) Pt. Loc: ?Echo Lab ?BSA: ?2.03 Study Date: ?? 01/07/2021 ?Pt. Type: Outpatient Tape: ? Referring: LAURA Reading: Freddy Mejias ([id number]) Forestry Biology Specialist: Saranya Monson Server Assistant: Zackary Feldman Diagnosis: *Atherosclerotic heart disease of [place] coronary artery without angina pectoris (I25.10) BP: [...] Vmax ?0.56 ? m/sec ? MV deceleration fsgc803.41 ? msec ? MV A-wave Vmax ?0.81 [...] ? Mid-Inferior ?Normal ? Mid-Inferoseptal ?Normal ? [place]-Septal ? Normal ? [place]-Anterior ? Normal ? [place]-Lateral ?Normal ? [place]-Inferior ? Normal ? [place]-Tip ?Normal ? This report has been electronically signed by: Freddy Mejias MD ? 01/07/2021 13:36:15 Images reviewed and interpretation verified [facility] Procedure Note Freddy Mejias MD - 01/07/2021 Procedure: Transthoracic Echocardiogram Patient: APOLINAR Lawson (Age): 1960(60y) Med Rec#: [id number] Sex: F Site Loc: [facility] Ht / Wt: 163(cm)/99(kg) Pt. Loc: Echo Lab BSA: 2.03 Study Date: 01/07/2021 Pt. Type: Outpatient Tape: Referring: LAURA Reading: Freddy Mejias ([id number]) Forestry Biology Specialist: Saranya Monson Server Assistant: Friend, Zackary Diagnosis: *Atherosclerotic heart disease of [place] coronary artery without angina pectoris (I25.10) BP: [...] MV E-wave Vmax 0.56 m/sec MV deceleration yzet930.41 msec MV A-wave Vmax 0.81 m/sec MV [...] Normal Mid-Posterolateral Normal Mid-Inferior Normal Mid-Inferoseptal Normal [place]-Septal Normal [place]-Anterior Normal [place]-Lateral Normal [place]-Inferior Normal [place]-Tip Normal This report has been electronically signed by: Freddy Mejias MD 01/07/2021 13:36:15 Images reviewed and interpretation verified [facility] Benito Reed MD ECHO ORDERABLES documented in this encounter Visit Diagnoses Diagnosis Coronary artery disease involving [place] coronary artery of [place] heart without angina pectoris documented in [...] mLs documented in this encounter Care Teams Pyrometer Mechanic Relationship Specialty Start Date End Date Hoang Castellanos APRN [address] [place] [address] PCP - General Family Medicine 03/12/20 documented as of this encounter
--- OUTSIDE RECORDS SUMMARY | 2024-08-15 13:32 | XMS_ITS | Encounter Summary ---
Author Organization [facility] [place] [address] Care Team Providers Care Middle School Music Teacher Name Role Phone Hoang Castellanos APRN Primary Care Provider Reason for Visit * Consultation (Routine) - Closed Specialty Diagnoses / Procedures Referred By Contdavide t Referred To Contact Neurology Diagnoses Right leg weakness Dizziness Hoang Castellanos APRN [address] [place] [address] [facility] Neurology [address] [place] [address] Referral ID Status Reason Start Date Expiration Date V isits Requested Visits Authorized [id number] Closed Specialty Service Requested 12/17/2020 12/17/2021 12 12 Encounter Details Date Type Department Care Team (Late st Contact Info) Description 02/04/2021 8:00 AM EDT TH Visit (TeleHealth) [place] [address] Altagracia Baltazar MD [facility] [place] [address] Weakness of both lower limbs [...] ??? Osteoporosis Overview Note: DEXA done at [facility] on 10/29/15: osteoporosis at the left hip [...] WRIGHT at [facility] ENDOSCOPY Medications: Current Outpatient Medications [...] 3 ??? Miscellaneous Medical Supply [facility] [place] [...] lancets 30 gauge Misc 1 each by [facility]Non-Drug; Combo Route) route daily. [...] limbs documented in this encounter Care Teams Middle School Music Teacher Relationship Specialty Start Date End Date Hoang Castellanos, CANCELING MACHINE OPERATOR [address] [place] [address] PCP - General Family Medicine 03/12/20 documented as of this encounter
--- OUTSIDE RECORDS SUMMARY | 2024-08-15 13:32 | XMS_ITS | Encounter Summary ---
Author Organization [facility] [place] [address] Care Team Providers Care Pet Adoption Counselor Name Role Phone Hoang Castellanos APRN Primary Care Provider Reason for Referral * Diagnostic Test (Routine) - Closed Specialty Diagnoses / Procedures Referred By Contac t Referred To Contact Radiology Diagnoses Myelopathy Procedures MRI Thoracic Spine wo Contrast (Generic) Gurjit Bass MD [facility] [place] [address] [facility] Rad Mri [address] [place] [address] Referral ID Status Reason Start Date Expiration Date V isits Requested Visits Authorized [id number] Closed Specialty Service Requested 03/26/2021 09/23/2022 1 1 Reason for Visit * Consultation (Routine) - Closed Specialty Diagnoses / Procedures Referred By Contac t Referred To Contact Neurology Diagnoses Intracranial hypertension Hoang Castellanos APRN [address] [facility] [place] [address] Gurjit Bass MD [facility] [place] [address] Referral ID Status Reason Start Date Expiration Date V isits Requested Visits Authorized [id number] Closed Specialty Service Requested 02/09/2021 02/09/2022 12 12 Encounter Details Date Type Department Care Team (Late st Contact Info) Description 03/26/2021 1:00 PM EDT Office [place] [address] Gurjit Bass MD [facility] [place] [address] Bipolar affective disorder, remission status unspecified; Seizures; [...] and they should contact you and your showcase maker to set up a clinic appointment. You [...] arise. Gurjit Bass MD Professor of neurology, [employer] at [facility] Department of Neurology, [place] [address], [address] Pager: [phone], #[phone] Email: [email or web address] documented in this encounter Progress Notes * [...] me, as I had followed her from 5282-2367. Has a complex medical and neurological history [...] chemistry and liver profile, thyroid function tests, [id number], TSH level, CK and hemoglobin A1c and [...] Hypothyroidism, acquired ??? Borderline personality disorder Per [facility] ??? 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 Review of systems: 1. Eating: Normal [...] 30 tablet 1 ??? Miscellaneous Medical Supply [facility] 1 walker on wheels with seat 1 [...] have spoken with the patient, and the showcase maker who accompanied her, to discuss what needs to be done. I have strongly advised her to stop smoking immediately Thank you for this consultation. I will see the patient back in 3 months or sooner if necessary Gurjit Bass MD [place] [address] Pager: [phone], #[phone] Email: CC: Hoang Baltazar MD documented in [...] who have questions please contact the health geriatric personal care aide that requested your imaging first. [...] patients who have questions please contactthe health geriatric personal care aide that requested your imaging first. Electronically signed by: Freddy Christian [facility]([phone]), at 06/24/2021 3:53 PM Gurjit Bass MD IMG MRI ORDERABLES documented in this encounter Visit Diagnoses Diagnosis Bipolar affective disorder, remission status unspecified Seizures Other convulsions Myelopathy Unspecified disease of spinal cord Myelopathy Unspecified disease of spinal cord documented in this encounter Care Teams Pet Adoption Counselor Relationship Specialty Start Date End Date Hoang Castellanos, CONTRACTOR GENERAL BUILDING [address] [place] [address] PCP - General Family Medicine 03/12/20 documented as of this encounter
--- OUTSIDE RECORDS SUMMARY | 2024-08-15 13:32 | XMS_ITS | Encounter Summary ---
Author Organization [facility] Address [facility] [place] [address] Care Team Providers Care Dough Panner Name Role Phone Hoang Castellanos APRN Primary Care Provider [phone] Encounter Details Date Type Department Care Team (Late st Contact Info) Description 04/08/2021 [place] [address] Campos Puente MD [facility] [place] [address] Social History Tobacco Use Types Packs/Day Years [...] - 06/02/2021 3:11 PM EST Angela from [facility] calling to provide fax number. * Telephone Encounter - Marli Hernández - 06/02/2021 2:23 PM EST Per PAB schedule TOV with Pt and siblings for Saturday 06/09 at 2pm LM for [facility] Pai Gow Manager Angela to provide fax # to fax [...] anesthesia consult. * Telephone Encounter - Marli Hernnádez - 04/08/2021 2:28 PM EDT Jeannie Rico - 04/07/21 Campos Puente MD Sent: Bruce April 07, 2021 ??5:17 PM To: P [facility] Neurosurgery Supervisor Propellant Charge Loading ?? Message Needs cardiology W/U; PAT consult and schedule for surgery: C5/6 and 6/& ACDF documented in this encounter Plan of Treatment Not on file documented as of this encounter Visit Diagnoses Not on filedocumented in this encounter Care Teams Dough Panner Relationship Specialty Start Date End Date Hoang Castellanos APRN [address] [place] [address] PCP - General Family Medicine 03/12/20 documented as of this encounter
--- OUTSIDE RECORDS SUMMARY | 2024-08-15 13:32 | XMS_ITS | Encounter Summary ---
Author Organization [facility] [place] [address] Care Team Providers Care Cytopathology Technologist Name Role Phone Hoang Castellanos APRN Primary Care Provider Encounter Details Date Type Department Care Team (Late st Contact Info) Description 12/10/2020 Telephone Primary Care at [facility] 10 [facility] [place] [address] Hoang Castellanos APRN [address] [place] [address] Social History Tobacco Use Types Packs/Day Years [...] sister. Jeannie is going to have someone molded goods spot picker a form so she can fill [...] She [facility] an [facility] [place] with her Provider, Hoang Castellanos [...] panicking. She said she called triage at [facility]. She doesn't want to go to [...] on filedocumented in this encounter Care Teams Cytopathology Technologist Relationship Specialty Start Date End Date Hoang Castellanos, SENIOR NET DEVELOPER [address] [place] [address] PCP - General Family Medicine 03/12/20 documented as of this encounter
--- OUTSIDE RECORDS SUMMARY | 2024-08-15 13:32 | XMS_ITS | Encounter Summary ---
Author [place] [address] Care Team Providers Care Manager Data Warehouse Name Role Phone Hoang Castellanos APRN Primary Care Provider Reason for Visit * Reason Onset Date Comments Questions 02/27/2021 note clarificati on Encounter Details Date Type Department Care Team (Late st Contact Info) Description 02/27/2021 Telephone Orthopaedics at [facility] 10 [facility] [place] [address] Irasema Chairez RN Questions (note clarification) Social [...] 1960 No relevant phone numbers on file. [phone] (home) Problem/Question: Celi from [facility] left a message stating that she [...] filedocumented in this encounter Care Teams Manager Data Warehouse Relationship Specialty Start Date End Date Hoang Castellanos, PLUG SHAPER HAND [address] [place] [address] PCP - General Family Medicine 03/12/20 documented as of this encounter
--- OUTSIDE RECORDS SUMMARY | 2024-08-15 13:32 | XMS_ITS | Encounter Summary ---
[place] [address] Care Team Providers Care Truck Washer Name Role Phone Hoang Castellanos APRN Primary Care Provider [phone] Encounter Details Date Type Department Care Team (Late st Contact Info) Description 04/14/2021 3:00 PM EDT TH Visit (TeleHealth) [place] [address] Altagracia Pereira MD [facility] [place] [address] Myelopathy; Weakness of both lower limbs; Bilateral [...] Osteoporosis Overview Note: DEXA done at [facility] on 10/29/15: osteoporosis at the left [...] needed for Chest pain. Miscellaneous Medical Supply [facility] 1 walker on wheels with seat ibuprofen (Advil;Motrin) 800 mg Tablet Take 1 tablet by mouth every 8 hours as needed for Pain. sertraline (ZOLOFT) 100 mg Tablet Take 2 tablets by mouth 2 times daily. multivitamin (THERAGRAN) Tablet Take 1 tablet by mouth daily. lancets 30 gauge [facility] 1 each by [facility].(Non-Drug; Combo Route) route daily. ARIPiprazole (Abilify) 5 [...] as is her preference. ALTAGRACIA PEREIRA MD [facility] Door Technician, Neuromuscular Medicine [facility] 04/13/21 11:50 PM Patient provided verbal consent [...] gait documented in this encounter Care Teams Truck Washer Relationship Specialty Start Date End Date Hoang Castellanos, WIRE MILL OPERATOR [address] [place] [address] PCP - General Family Medicine 03/12/20 documented as of this encounter
--- OUTSIDE RECORDS SUMMARY | 2024-08-15 13:32 | XMS_ITS | Encounter Summary ---
[place] [address] Care Team Providers Care Pantograph Machine Set Up Operator Name Role Phone Hoang Castellanos APRN Primary Care Provider Reason for Visit * Reason Onset Date Comments Appointment 12/29/2020 Encounter Details Date Type Department Care Team (Late st Contact Info) Description 12/29/2020 Telephone [place] [address] Keron Theodore MD Appointment Social History Tobacco [...] on filedocumented in this encounter Care Teams Pantograph Machine Set Up Operator Relationship Specialty Start Date End Date Hoang Castellanos, TRIBAL DELEGATE [address] [place] [address] PCP - General Family Medicine 03/12/20 documented as of this encounter
--- OUTSIDE RECORDS SUMMARY | 2024-08-15 13:32 | XMS_ITS | Encounter Summary ---
[place] [address] Care Team Providers Care Acting Teacher Name Role Phone Hoang Castellanos APRN Primary Care Provider [phone] Encounter Details Date Type Department Care Team (Latest Contact Info) Description 02/26/2021 12:45 PM EDT Ancillary Procedure Radiology XRay at the [facility] at [facility] [address] [place] [address] Jose A Mejia MD [address] [place] [address] Chronic pain of right ankle Social History [...] ? Electronically signed by: Rinku Wilkins MD, [facility] ([phone]), at 02/26/2021 12:58 PM Narrative 02/26/2021 12:58 [...] critical care that requested your imaging first. Jose A Mejia MD IMG DX ORDERABLES documented in this encounter Visit Diagnoses Diagnosis Chronic pain of right ankle documented in this encounter Care Teams Acting Teacher Relationship Specialty Start Date End Date Hoang Castellanos, WILD LIFE PHOTOGRAPHER [address] [place] [address] PCP - General Family Medicine 03/12/20 documented as of this encounter
--- OUTSIDE RECORDS SUMMARY | 2024-08-15 13:32 | XMS_ITS | Encounter Summary ---
[place] [address] Care Team Providers Care Cw Operator Name Role Phone Hoang Castellanos APRN Primary Care Provider Reason for Referral * Diagnostic Test (Routine) - Closed Specialty Diagnoses / Procedures Referred By Vanita dimas Referred To Contact Radiology Diagnoses Weakness of both lower limbs Bilateral hand numbness Procedures MRI Cervical Spine wo Contrast (Generic) Altagracia Baltazar MD [facility] [address] [place] [address] Referral ID Status Reason Start Date Expiration Date V isits Requested Visits Authorized [id number] Closed Specialty Service Requested 02/04/2021 08/07/2022 1 1 Encounter Details Date Type Department Care Team (Late st Contact Info) Description 02/04/2021 [place] [address] Altagracia Baltazar MD [facility] [place] [address] Weakness of both lower limbs; [...] have questions please contact the health career information specialist that requested your imaging first. ? Electronically signed by: Xander Whittington MD, [facility] ([phone]), at 03/10/2021 10:54 AM Narrative 03/10/2021 10:54 [...] who have questions please contactthe health career information specialist that requested your imaging first. Electronically signed by: Xander Whittington MD, [facility]([phone]), at 03/10/2021 10:54 AM Altagracia Baltazar MD [facility] MRI ORDERABLES * (ABNORMAL) Basic Metabolic Panel (non-fasting) (02/26/2021 12:14 PM EDT) [facility] Glucose 107 65 - 199 mg/dL LABORATORY [...] ORDERABLE S [facility] [address] [place] [address] * Acetylcholine Receptor Ab Binding (02/26/2021 12:14 PM EDT) Achr Binding Ab (NOVEMBER) 0.00 <=0.02 nmol/L [facility] Comment: ADDITIONAL INFORMATION This test was developed and its performance characteristics determined by [facility] in a manner consistent with CLIA requirements. This test has not been cleared or approved by the U.S. Food and Drug Administration. Test Performed by: [facility] - [address] [address] Food Service Lead: Skinny Reyes M.D. Ph.D.; CLIA# [id number] Blood 02/26/2021 12:1 4 PM EDT 02/26/2021 5:14 PM EDT Narrative Resulting Agency Comment Spec In Lab Altagracia Baltazar MD LAB SEND OUT ORDERA BLES Performing Organization Address [facility] Co de Phone Number [facility] [address] [place] [address] * CK (02/26/2021 12:14 PM EDT) Creatine Kinase 79 0 - 160 unit/L [facility] Blood 02/26/2021 12:1 4 PM EDT 02/26/2021 12:26 PM EDT Narrative Resulting Agency Comment Spec In Lab Altagracia Baltazar MD CHEMISTRY ORDERABLE S Performing Organization Address [facility] de Phone Number [facility] [address] [place] [address] documented in this encounter Visit Diagnoses Diagnosis Weakness of both lower limbs Other musculoskeletal symptoms referable to limbs Bilateral hand numbness Disturbance of skin sensation Gait disturbance Abnormality of gait Diplopia Weakness of both lower limbs Other musculoskeletal symptoms referable to limbs Bilateral hand numbness Disturbance of skin sensation documented in this encounter Care Teams Cw Operator Relationship Specialty Start Date End Date Hoang Castellanos, PHLEBOTOMY INSTRUCTOR [address] [place] [address] PCP - General Family Medicine 03/12/20 documented as of this encounter
--- OUTSIDE RECORDS SUMMARY | 2024-08-15 13:32 | XMS_ITS | Encounter Summary ---
Author Organization [facility] [place] [address] Care Team Providers Care Iv Rn Name Role Phone Hoang Castellanos APRN Primary Care Provider Reason for Visit * Reason Onset Date Comments TeleHealth 02/03/2021 Encounter Details Date Type Department Care Team (Late st Contact Info) Description 02/03/2021 [place] [address] Altagracia Baltazar MD [facility] [place] [address] TeleHealth Social History Tobacco Use Types Packs/Day [...] on filedocumented in this encounter Care Teams Iv Rn Relationship Specialty Start Date End Date Hoang Castellanos APRN [address] [place] [address] PCP - General Family Medicine 03/12/20 documented as of this encounter
--- OUTSIDE RECORDS SUMMARY | 2024-08-15 13:32 | XMS_ITS | Encounter Summary ---
Author Organization [facility] [place] [address] Care Team Providers Care Clinical Courier Name Role Phone Hoang Castellanos APRN Primary Care Provider Reason for Visit * Reason Comments Right Leg Pain * Consultation (Routine) - Closed Specialty Diagnoses / Procedures Referred By Vanita dimas Referred To Contact Orthopaedics Diagnoses Chronic pain of right ankle Hoang Castellanos APRN 10 [facility] [place] [address] [facility] [address] [place] [address] Referral ID Status Reason Start Date Expiration Date V isits Requested Visits Authorized [id number] Closed Specialty Service Requested 12/17/2020 12/17/2021 12 12 Encounter Details Date Type Department Care Team (Late st Contact Info) Description 02/26/2021 1:00 PM EDT Office Visit Orthopaedics at [facility] 10 [place] [address] Alexis Menezes PA 10 [facility] [place] [address] Chronic pain of right ankle [...] NAME: Jeannie Rico AGE: 60 y.o. MR#: [id number] DATE OF VISIT: 02/26/2021 DATE OF INJURY/ONSET: [...] WRIGHT at [facility] ENDOSCOPY Family History Problem Relation Age of [...] lancets 30 gauge Misc 1 each by [facility].(Non-Drug; Combo Route) route daily. (Patient not taking: [...] X-ray series were performed on 02/26/2021 at [facility] which showed healing distal fibula [...] with this approach. Please refer to the [place] [employer] website at WWW.AAOS.org, [...] ankle documented in this encounter Care Teams Clinical Courier Relationship Specialty Start Date End Date Hoang Castellanos, SAM [address] [place] [address] PCP - General Family Medicine 03/12/20 documented as of this encounter
--- OUTSIDE RECORDS SUMMARY | 2024-08-15 13:32 | XMS_ITS | Encounter Summary ---
Author Organization [facility] [place] [address] Care Team Providers Care Healthcare Translator Name Role Phone Hoang Castellanos APRN Primary Care Provider [phone] Reason for Visit * Reason Comments Medication Refill Encounter Details Date Type Department Care Team (Late st Contact Info) Description 02/16/2021 Refill Primary Care at [facility] 10 [place] [address] Hoang Castellanos APRN [address] [facility] [place] [address] Coronary artery disease involving [place] coronary artery of [place] heart without angina [...] Visit Diagnoses Diagnosis Coronary artery disease involving [place] coronary artery of [place] heart without angina pectoris documented in this encounter Care Teams Healthcare Translator Relationship Specialty Start Date End Date Hoang Castellanos, SAM [address] [place] [address] PCP - General Family Medicine 03/12/20 documented as of this encounter
--- OUTSIDE RECORDS SUMMARY | 2024-08-15 13:32 | XMS_ITS | Encounter Summary ---
[place] [address] Care Team Providers Care Hiv Cts Specialist Name Role Phone Hoang Castellanos APRN Primary Care Provider Reason for Referral * Diagnostic Test (Routine) - Closed Specialty Diagnoses / Procedures Referred By Contac t Referred To Contact Radiology Diagnoses Weakness of both lower limbs Bilateral hand numbness Procedures MRI Cervical Spine wo Contrast (Generic) Altagracia Baltazar MD [facility] [place] [address] [place] [address] Referral ID Status Reason Start Date Expiration Date V isits Requested Visits Authorized [id number] Closed Specialty Service Requested 02/04/2021 08/07/2022 1 1 Reason for Visit * Diagnostic Test (Routine) - Closed Specialty Diagnoses / Procedures Referred By Contac t Referred To Contact Radiology Diagnoses Weakness of both lower limbs Bilateral hand numbness Procedures MRI Cervical Spine wo Contrast (Generic) Altagracia Baltazar MD [facility] [place] [address] [place] [address] Referral ID Status Reason Start Date Expiration Date V isits Requested Visits Authorized [id number] Closed Specialty Service Requested 02/04/2021 08/07/2022 1 1 Encounter Details Date Type Department Care Team (Latest Contact Info) Description 03/10/2021 7:01 AM EDT - 03/10/2021 11:59 PM EDT [place] [address] Altagracia Baltazar MD [facility] [place] [address] Weakness of both lower limbs; Bilateral hand [...] 09/28/2021 Ventolin HFA 90 mcg/actuation HFA Aerosol InhalerIndications:Real Estate Sales Supervisor randell obstructive pulmonary disease, unspecified COPD type [...] questions please contact the health managed care analyst that requested your imaging first. ? Electronically signed by: Xander Whittington MD, [facility] ([phone]), at 03/10/2021 10:54 AM Narrative 03/10/2021 10:54 [...] have questions please contactthe health managed care analyst that requested your imaging first. Altagracia Baltazar MD IMG MRI ORDERABLES documented in this encounter Visit Diagnoses Diagnosis Weakness of both lower limbs Other musculoskeletal symptoms referable to limbs Bilateral hand numbness Disturbance of skin sensation documented in this encounter Care Teams Hiv Cts Specialist Relationship Specialty Start Date End Date Hoang Castellanos, RESEARCH WORKER [employer] [address] [place] [address] PCP - General Family Medicine 03/12/20 documented as of this encounter
--- OUTSIDE RECORDS SUMMARY | 2024-08-15 13:32 | XMS_ITS | Encounter Summary ---
Author Organization [facility] [place] [address] Care Team Providers Care Pipeline Construction Inspector Name Role Phone Hoang Castellanos APRN Primary Care Provider [phone] Reason for Visit * Reason Comments Medication Refill Encounter Details Date Type Department Care Team (Late st Contact Info) Description 12/23/2020 Refill Primary Care at [facility] 10 [place] [phone] Hoang Castellanos APRN 10 [facility] [place] [address] Social History Tobacco Use Types Packs/Day Years [...] on filedocumented in this encounter Care Teams Pipeline Construction Inspector Relationship Specialty Start Date End Date Hoang Castellanos, SECTION MAINTAINER [address] [place] [address] PCP - General Family Medicine 03/12/20 documented as of this encounter
--- OUTSIDE RECORDS SUMMARY | 2024-08-15 13:32 | XMS_ITS | Encounter Summary ---
Author Organization [facility] Address [facility] [place] [address] Care Team Providers Care Shower Doors And Panels Fabricator Name Role Phone Hoang Castellanos APRN Primary Care Provider Encounter Details Date Type Department Care Team (Late st Contact Info) Description 04/07/2021 2:00 PM EDT Office [place] [address] Campos Puente MD [facility] [place] [address] Cervical spondylosis Social History Tobacco Use Types [...] her sister, Rae Mittal who resides in [place]. She arrives to this visit in a wheelchair. She is accompanied to this visit by her research recruiter. On examination this is a woman with [...] is intact to light touch and proprioception. Lvbtum-rj-[id number] is performed accurately. She can arise from a seated position with the use of her arms and can take a few steps but requires holding onto furniture to accomplish this. Review of her MRI shows preserved cervical lordosis with C5-6 and C6-7 spondylosis. We had a varinder discussion on the situation and options here. 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 We discussed that the [...] myelopathy documented in this encounter Care Teams Shower Doors And Panels Fabricator Relationship Specialty Start Date End Date Hoang Castellanos APRN [address] [place] [place] [address] PCP - General Family Medicine 03/12/20 documented as of this encounter
--- OUTSIDE RECORDS SUMMARY | 2024-08-15 13:32 | XMS_ITS | Encounter Summary ---
[place] [address] Care Team Providers Care Telesales Advisor Name Role Phone Hoang Castellanos APRN Primary Care Provider Encounter Details Date Type Department Care Team (Late st Contact Info) Description 04/13/2021 [place]phone [place] [address] Marli Hernández Social History Tobacco Use Types [...] - 04/13/2021 1:44 PM EDT Jeannie Rico [phone] Caller: Symone RITCHIE from [facility] is out in the field. I spoke with Melania JUNG from the [facility] Reason for call: I let Melania know [...] caller: anytime Best number to reach caller: [phone] Reason for call: Calling to confirm if [...] on filedocumented in this encounter Care Teams Telesales Advisor Relationship Specialty Start Date End Date Hoang Castellanos APRN [address] [place] [address] PCP - General Family Medicine 03/12/20 documented as of this encounter
--- OUTSIDE RECORDS SUMMARY | 2024-08-15 13:32 | XMS_ITS | Encounter Summary ---
Author Organization [facility] [place] [address] Care Team Providers Care Chain Saw Driver Name Role Phone Hoang Castellanos APRN Primary Care Provider Reason for Visit * Reason Comments Medication Refill Encounter Details Date Type Department Care Team (Late st Contact Info) Description 03/16/2021 Refill Primary Care at [facility] 10 [place] [phone] Hoang Castellanos APRN 10 [facility] [place] [address] B12 deficiency Social History Tobacco Use Types [...] deficiencies documented in this encounter Care Teams Chain Saw Driver Relationship Specialty Start Date End Date Hoang Castellanos APRN [address] [place] [address] PCP - General Family Medicine 03/12/20 documented as of this encounter
--- OUTSIDE RECORDS SUMMARY | 2024-08-15 13:32 | XMS_ITS | Encounter Summary ---
[place] [address] Care Team Providers Care Assistant Floor Covering Printer Name Role Phone Hoang Castellanos APRN Primary Care Provider Reason for Referral * Diagnostic Test (Routine) - Closed Specialty Diagnoses / Procedures Referred By Contac t Referred To Contact Radiology Diagnoses Coronary artery disease involving kashia coronary artery of kashia heart without angina pectoris Procedures NM Pharmacologic Stress and Rest Myocardial Perfusion Dustin Haynes [facility] [address] [place] [address] Referral ID Status Reason Start Date Expiration Date V isits Requested Visits Authorized [id number] Closed Specialty Service Requested 02/16/2021 07/24/2021 1 1 Reason for Visit * Diagnostic Test (Routine) - Closed Specialty Diagnoses / Procedures Referred By Contac t Referred To Contact Radiology Diagnoses Coronary artery disease involving k[place]ia coronary artery of kashia heart without angina pectoris Procedures NM Pharmacologic Stress and Rest Myocardial Perfusion Dustin Haynes [facility] [address] [place] [address] Referral ID Status Reason Start Date Expiration Date V isits Requested Visits Authorized [id number] Closed Specialty Service Requested 02/16/2021 07/24/2021 1 1 Encounter Details Date Type Department Care Team (Late st Contact Info) Description 04/15/2021 10:20 AM EDT - 04/15/2021 10:28 AM EDT Hospital Encounter [place] [address] Benito Reed MD [facility] [place] [address] 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 ? Electronically signed by: Matthew Morrison MD, [facility] ([phone]), at 04/15/2021 3:42 PM Narrative 04/15/2021 3:42 [...] patients who have questions please contactthe health long term care pharmacist that requested your imaging first. 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
--- OUTSIDE RECORDS SUMMARY | 2024-08-15 13:32 | XMS_ITS | Encounter Summary ---
[place] [address] Care Team Providers Care High Raw Sugar Boiler Name Role Phone Hoang Castellanos APRN Primary Care Provider [phone] Encounter Details Date Type Department Care Team (Late st Contact Info) Description 04/07/2021 Orders [place] [address] Gurjti Bass MD [facility] [place] [address] Seizures; Myelopathy; Bipolar affective disorder, remission status [...] MD HEMATOLOGY ORDERABLE S Performing Organization Address City/[facility]/ZIP Co [place] [address] * Lyme IgG & IgM Antibody (2021 10:54 AM EDT) Lyme Antibody Neg Neg [facility] Blood 2021 10:5 4 AM EDT 05/28/2021 6:53 AM EDT Narrative Resulting Agency Comment Spec In Lab Gurjit Bass MD IMMUNOLOGY ORDERABLE S [facility] [place] [address] * TSH (2021 10:54 AM EDT) Thyroid Stimulating Hormone 2.40 0.27 - 4.20 mcIU/mL LABORATORY Comment: Reference Interval (mcIU/mL): Females: ??First Trimester: 0.23-3.88 ??Second Trimester: 0.22-3.90 ??Third Trimester: 0.44-4.66 Blood 2021 10:5 4 AM EDT 2021 11:55 AM EDT Narrative Resulting Agency Comment Spec In Lab Authorizing Provider Result Macy Bass MD CHEMISTRY ORDERABLES Performing Organization Address [facility] de Phone Number [facility] [address] [place] [address] * T4 Total (2021 10:54 AM EDT) T4 Total 8.2 5.3 - 11.6 mcg/dL LABORATORY Comment: Reference Interval (mcg/dL): Females: ??First Trimester: 6.3-13.5 ??Second Trimester: 7.1-14.3 ??Third Trimester: 6.9-14.1 Blood 2021 10:5 4 AM EDT 2021 11:55 AM EDT Narrative Resulting Agency Comment Spec In Lab Authorizing Provider Result Macy Bass MD CHEMISTRY ORDERABLES Performing Organization Address [facility] de Phone Number [facility] [address] [place] [address] * (ABNORMAL) Comprehensive metabolic panel (non-fasting) (2021 [...] Bass MD CHEMISTRY ORDERABLES LABORATORY [address] [place] [address] * Vitamin B12 (2021 10:54 AM EDT) Vitamin B12 1,017 232 - 1,245 pg/mL [facility] Blood 2021 10:5 4 AM EDT 2021 4:48 PM EDT Narrative Resulting Agency Comment Spec In Lab Gurjit Bass MD CHEMISTRY ORDERABLES Performing Organization Address [facility] Co de Phone Number [facility] [place] [address] * Lamotrigine Lvl (2021 10:54 AM EDT) Lamotrigine Lvl (NOVEMBER) 3.7 2.5 - 15.0 mcg/mL [facility] Comment: ADDITIONAL INFORMATION This test was developed and its performance characteristics determined by [facility] in a manner consistent with CLIA requirements. This test has not been cleared or approved by the U.S. Food and Drug Administration. Test Performed by: [facility] [address] [place] [address] System Support Technician: Skinny Reyes M.D. Ph.D.; CLIA# [id number] Blood 2021 10:5 4 AM EDT 2021 4:54 PM EDT Narrative Resulting Agency Comment Spec In Lab Gurjit Bass MD LAB SEND OUT ORDERAB LES Performing Organization Address City/[facility] Co de Phone Number [facility] [address] [place] [address] documented in this encounter Visit Diagnoses Diagnosis Seizures Other convulsions Myelopathy Unspecified disease of spinal cord Bipolar affective disorder, remission status unspecified documented in this encounter Care Teams High Raw Sugar Boiler Relationship Specialty Start Date End Date Hoang Castellanos, FBI FIELD AGENT [address] [place] [address] PCP - General Family Medicine 03/12/20 documented as of this encounter
--- OUTSIDE RECORDS SUMMARY | 2024-08-15 13:32 | XMS_ITS | Encounter Summary ---
Author [facility] [place] [address] Care Team Providers Care Sr. Merchandise Planner Name Role Phone Hoang Castellanos APRN Primary Care Provider Encounter Details Date Type Department Care Team (Late st Contact Info) Description 12/10/2020 Telephone Primary Care at [facility] [address] [facility] [place] [phone] Hoang Castellanos APRN [address] [place] [address] Social History Tobacco Use Types Packs/Day Years [...] Notes * Telephone Encounter - Meena Galloway, [facility] - 12/10/2020 10:09 AM EDT I placed a follow up call this morning to speak with patient regarding her loss of vision in her right eye. I saw the note from sap basis consultant provider recommending patient go to the ER, [...] be seen emergently by Dr. Garcia at [facility] for an urgent exam. In speaking with patient this morning she was agreeable to this, and I let her know as soon as I spoke to elizabeth bond at [facility], I would let her know. I spoke to Marli at [facility] who was able to have patient seen and refer her to [facility] if needed. Patient was [...] on filedocumented in this encounter Care Teams Sr. Merchandise Planner Relationship Specialty Start Date End Date Hoang Castellanos APRN [address] [place] [place] [address] PCP - General Family Medicine 03/12/20 documented as of this encounter
--- OUTSIDE RECORDS SUMMARY | 2024-08-15 13:32 | XMS_ITS | Encounter Summary ---
[place] [address] Care Team Providers Care Cyber Security Systems Engineer Name Role Phone Hoang Castellanos APRN Primary Care Provider Encounter Details Date Type Department Care Team (Late st Contact Info) Description 12/17/2020 Telephone Primary Care at [facility] 10 [place] [address] Jeannie Luciano, RN Social History Tobacco Use [...] insulin documented in this encounter Care Teams Cyber Security Systems Engineer Relationship Specialty Start Date End Date Hoang Castellanos, SALES MGR [address] [place] [address] PCP - General Family Medicine 03/12/20 documented as of this encounter
--- OUTSIDE RECORDS SUMMARY | 2024-08-15 13:32 | XMS_ITS | Encounter Summary ---
Author Organization [facility] Address [facility] [place] [address] Care Team Providers Care Associate Application Developer Name Role Phone Hoang Castellanos APRN Primary Care Provider Encounter Details Date Type Department Care Team (Late st Contact Info) Description 03/27/2021 [place] [address] Altagracia aBltazar MD [facility] [place] [address] Social History Tobacco Use Types Packs/Day Years [...] on filedocumented in this encounter Care Teams Associate Application Developer Relationship Specialty Start Date End Date Hoang Castellanos, ZONE MANAGER [address] [place] [address] PCP - General Family Medicine 03/12/20 documented as of this encounter
--- OUTSIDE RECORDS SUMMARY | 2024-08-15 13:32 | XMS_ITS | Encounter Summary ---
[place] [address] Care Team Providers Care Employee Health Nurse Name Role Phone Hoang Castellanos APRN Primary Care Provider Encounter Details Date Type Department Care Team (Late st Contact Info) Description 12/12/2020 Telephone Primary Care at [facility] 10 [place] [address] Shannon Cruz, RN Social History Tobacco Use [...] on filedocumented in this encounter Care Teams Employee Health Nurse Relationship Specialty Start Date End Date Hoang Castellanos, FOLDED TOWEL MACHINE OPERATOR [address] [place] [place] [address] PCP - General Family Medicine 03/12/20 documented as of this encounter
--- OUTSIDE RECORDS SUMMARY | 2024-08-15 13:32 | XMS_ITS | Encounter Summary ---
[place] [address] Care Team Providers Care Sociology Faculty Member Name Role Phone Hoang Castellanos APRN Primary Care Provider Encounter Details Date Type Department Care Team (Late st Contact Info) Description 04/07/2021 12:45 PM EDT Laboratory Appointment Lab [address] [place] [phone] Social History Tobacco Use Types Packs/Day Years [...] Lamotrigine Lvl (04/07/2021 1:29 PM EDT) Pathologist [facility] Lamotrigine Lvl (NOVEMBER) 3.5 2.5 - 15.0 mcg/mL [facility] Comment: ADDITIONAL INFORMATION This test was developed and its performance characteristics determined by [facility] in a manner consistent with CLIA requirements. This test has not been cleared or approved by the U.S. Food and Drug Administration. Test Performed by: [facility] [place] [address] Automotive Parts Advisor: Skinny Reyes M.D. Ph.D.; CLIA# [id number] Blood Venous Draw / Unknown 04/07/2021 1:29 PM EDT 04/07/2021 4:27 PM EDT Narrative Resulting Agency Comment Spec In Lab Gurjit Bass MD LAB SEND OUT ORDERAB LES [facility] [place] [address] * Vitamin B12 (04/07/2021 1:29 PM EDT) [facility] Vitamin B12 1,018 232 - 1,245 pg/mL [facility] Blood Venous Draw / Unknown 04/07/2021 1:29 PM EDT 04/07/2021 2:08 PM EDT Narrative Resulting Agency Comment Spec In Lab Gurjit Bass MD CHEMISTRY ORDERABLES [facility] [place] [address] * Basic Metabolic Panel (non-fasting) (04/07/2021 1:29 PM EDT) Glucose 124 65 - 199 mg/dL [facility] Comment:Diabetes: >=200 mg/d L plus symptoms Blood Urea Nitrogen 18 8 - 18 mg/dL [facility] Creatinine 0.81 0.70 - 1.20 mg/dL [facility] Sodium 140 135 - 145 mmol/L [facility] Potassium 3.9 3.5 - 5.0 mmol/L [facility] Comment: Please note: ??Patients with WBC >100,000 may have falsely elevated Potassium levels. ??For accurate Potassium quantification in these patients send serum separator tube (gold top) for subsequent determinations. ??Contact the Clinical Chemistry Laboratory if there are any questions. Chloride 101 98 - 107 mmol/L [facility] Carbon Dioxide 31 22 - 31 mmol/L [facility] Anion Gap 8 5 - 15 mmol/L [facility] Calcium 9.6 8.5 - 10.5 mg/dL [facility] Est Glomerular Filtration Rate 79 >=60 mL/min/1. 73 m?? [facility] Comment: This patient? [...] Bass MD CHEMISTRY ORDERABLES Performing Organization Address City/[facility] Co de Phone Number [facility] [place] [address] * (ABNORMAL) Hepatic Function Panel (04/07/2021 1:29 PM EDT) Pathologist [facility] Protein, Total 6.6 6.1 - 8.0 gm/dL [facility] Albumin 4.0 3.2 - 5.2 gm/dL [facility] Aspartate Aminotransferase 9 0 - 30 unit/L [facility] Alanine Aminotransferase 10 0 - 30 unit/L [facility] Alkaline Phosphatase 125(H) 35 - 105 unit/L [facility] Bilirubin, Total 0.2 0.2 - 1.3 mg/dL [facility] Bilirubin, Direct 0.1 0.0 - 0.3 mg/dL [facility] Blood Venous Draw / Unknown 04/07/2021 1:29 PM EDT 04/07/2021 2:08 PM EDT Narrative Resulting Agency Comment Spec In Lab Gurjit Bass MD CHEMISTRY ORDERABLES Performing Organization Address [facility] Co de Phone Number [facility] [place] [address] * T4 Total (04/07/2021 1:29 PM EDT) [facility] T4 Total 7.4 5.3 - 11.6 mcg/dL [facility] Comment: Reference Interval (mcg/dL): Females: ??First Trimester: 6.3-13.5 ??Second Trimester: 7.1-14.3 ??Third Trimester: 6.9-14.1 Blood Venous Draw / Unknown 04/07/2021 1:29 PM EDT 04/07/2021 2:08 PM EDT Narrative Resulting Agency Comment Spec In Lab Gurjit Bass MD CHEMISTRY ORDERABLES Performing Organization Address [facility]/ZIP Co de Phone Number [facility] [place] [address] * TSH (04/07/2021 1:29 PM EDT) [facility] Thyroid Stimulating Hormone 2.27 0.27 - 4.20 mcIU/mL [facility] Comment: Reference Interval (mcIU/mL): Females: ??First Trimester: 0.23-3.88 ??Second Trimester: 0.22-3.90 ??Third Trimester: 0.44-4.66 Blood Venous Draw / Unknown 04/07/2021 1:29 PM EDT 04/07/2021 2:08 PM EDT Narrative Resulting Agency Comment Spec In Lab Gurjit Bass MD CHEMISTRY ORDERABLES Performing Organization Address City/[facility]/ZIP Co de Phone Number [facility] [place] [address] * (ABNORMAL) Differential, Automated (04/07/2021 1:29 PM EDT) [facility] Neutrophil % 71.8 % [facility] Neutrophil Absolute 6.73(H) 1.70 - 6.10 x10(3)/mc L [facility] Lymph % 20.4 % [facility] Lymphocytes Abs 1.9 0.9 - 3.2 x10(3)/mc L [facility] Monocyte % 6.2 % [facility] Monocyte Abs 0.6 0.3 - 0.9 x10(3)/mc L [facility] Eos % 0.7 % [facility] Eosinophils Abs 0.1 0.0 - 0.4 x10(3)/mc L [facility] Basophil % 0.6 % [facility] Baso Absolute 0.1 0.0 - 0.1 x10(3)/[facility] Immature Gran % 0.30 % [facility] Comment: Immature granulocytes(IG's)percentage and absolute count will include metamyelocytes, myelocytes, and promyelocytes. Blood smears from CBCs yielding IG's will be scanned manually for concordance. If this scan disagrees with the automated IG or if promyelocytes are noted, a manual differential will be performed. Immature Gran Absolute 0.03 0.00 - 0.04 x10(3)/[facility] Blood Venous Draw / Unknown 04/07/2021 1:29 PM EDT 04/07/2021 2:08 PM EDT Narrative Resulting Agency Comment Spec In Lab Gurjit Bass MD HEMATOLOGY ORDERABLE S Performing Organization Address City/State/[facility] Co de Phone Number [facility] [place] [address] * (ABNORMAL) Hemogram (04/07/2021 1:29 PM EDT) White Blood Cell 9.4 4.0 - 9.5 x10(3)/[facility] Red Blood Cell 4.36 4.00 - 5.21 x10(6)/[facility] Hemoglobin 13.8 11.7 - 15.5 gm/dL [facility] Hematocrit 42.1 35.7 - 45.8 % [facility] Mean Cell Volume 96.6(H) 82.6 - 94.4 fL [facility] Mean Cell Hemoglobin 31.7 27.1 - 32.0 pg [facility] Mean Cell Hemoglobin Concentration 32.8 31.7 - 35.0 gm/dL [facility] Platelet 236 145 - 357 x10(3)/[facility] RDW Standard Deviation 49.1(H) 37.0 - 46.0 fL [facility] RDW coefficient of variation 13.7 11.5 - 14.1 % [facility] Mean Platelet Volume 10.1 7.6 - 12.9 fL [facility] NRBC% auto 0.0 % [facility] NRBC Absolute 0.000 0.000 - 0.000 x10(3)/mc L [facility] Blood Venous Draw / Unknown 04/07/2021 1:29 PM EDT 04/07/2021 2:08 PM EDT Narrative Resulting Agency Comment Spec In Lab Gurjit Bass MD HEMATOLOGY ORDERABLE S [facility] [place] [address] * Lyme IgG & IgM Antibody (04/07/2021 1:29 PM EDT) Lyme Antibody Neg Neg [facility] Blood Venous Draw / Unknown 04/07/2021 1:29 PM EDT 04/08/2021 7:10 AM EDT Narrative Resulting Agency Comment Spec In Lab Gurjit Bass MD IMMUNOLOGY ORDERABLE S [facility] [place] [address] documented in this encounter Visit Diagnoses Not on filedocumented in this encounter Care Teams Sociology Faculty Member Relationship Specialty Start Date End Date Hoang Castellanos, ZIPPER SETTER LOCKSTITCH [address] [place] [address] PCP - General Family Medicine 03/12/20 documented as of this encounter
--- OUTSIDE RECORDS SUMMARY | 2024-08-15 13:32 | XMS_ITS | Encounter Summary ---
Author Organization [facility] [place] [address] Care Team Providers Care Dye Colorist Formulator Name Role Phone Hoang Castellanos APRN Primary Care Provider Reason for Referral * Home Health Care (Routine) - Closed Specialty Diagnoses / Procedures Referred By Contac t Referred To Contact Diagnoses Dizziness Generalized weakness Benign essential hypertension Right leg weakness Ananth Wilson MD [address] [place] [address] Unknown None Referral ID Status Reason Start Date Expiration Date V isits Requested Visits Authorized [id number] Closed Continuity of Care 02/03/2021 08/02/2021 1 1 Encounter Details Date Type Department Care Team (Late st Contact Info) Description 02/03/2021 10:00 AM EDT Office Visit [facility] at [facility] [address] [place] [phone] Ananth Wilson MD [address] [place] [address] Dizziness; Generalized weakness; Benign essential hypertension; Right [...] a 60 y.o. female presenting [facility] the [facility] Primary Care Clinic Balance Issues/Dizziness Sx [...] limbs documented in this encounter Care Teams Dye Colorist Formulator Relationship Specialty Start Date End Date Hoang Castellanos APRN [address] [place] [address] PCP - General Family Medicine 03/12/20 documented as of this encounter
--- OUTSIDE RECORDS SUMMARY | 2024-08-15 13:32 | XMS_ITS | Encounter Summary ---
Author Organization [place] [address] Care Team Providers Care Bone Puller Name Role Phone Hoang Castellanos APRN Primary Care Provider Encounter Details Date Type Department Care Team (Latest Contact Info) Description 02/26/2021 12:05 PM EDT Laboratory Appointment Laboratory at [facility] [address] [place] [phone] Weakness of both lower limbs; Diplopia Social [...] MD HEMATOLOGY ORDERABL ES [facility] [address] [place] [address] * (ABNORMAL) Hemogram (02/26/2021 12:14 PM EDT) [...] MD HEMATOLOGY ORDERABL ES [facility] [address] [place] [address] * CK (02/26/2021 12:14 PM EDT) Creatine Kinase 79 0 - 160 unit/L [facility] Blood 02/26/2021 12:1 4 PM EDT 02/26/2021 12:26 PM EDT Narrative Resulting Agency Comment Spec In Lab Altagracia Baltazar MD CHEMISTRY ORDERABLE S Performing Organization Address [facility] Co de Phone Number [facility] [address] [place] [address] * Acetylcholine Receptor Ab Binding (02/26/2021 12:14 PM EDT) [facility] Achr Binding Ab (NOVEMBER) 0.00 <=0.02 nmol/L LAB[facility] Comment: ADDITIONAL INFORMATION This test was developed and its performance characteristics determined by [facility] in a manner consistent with CLIA requirements. This test has not been cleared or approved by the U.S. Food and Drug Administration. Test Performed by: [place] [address] Soil Field Technician: Skinny Reyes M.D. Ph.D.; CLIA# [id number] Blood 02/26/2021 12:1 4 PM EDT 02/26/2021 5:14 PM EDT Narrative Resulting Agency Comment Spec In Lab Altagracia Baltazar MD LAB SEND OUT ORDERA BLES Performing Organization Address [facility] Co de Phone Number [facility] [address] [place] [address] * (ABNORMAL) Basic Metabolic Panel (non-fasting) (02/26/2021 12:14 PM EDT) [facility] Glucose 107 65 - 199 mg/dL LABORATORY [...] Altagracia Baltazar MD CHEMISTRY ORDERABLE S [facility] [address] [address] documented in this encounter Visit Diagnoses Diagnosis Weakness of both lower limbs Other musculoskeletal symptoms referable to limbs Diplopia documented in this encounter Care Teams Bone Puller Relationship Specialty Start Date End Date Hoang Castellanos, MANUFACTURING MAINTENANCE MECHANIC [address] [place] [address] PCP - General Family Medicine 03/12/20 documented as of this encounter
--- OUTSIDE RECORDS SUMMARY | 2024-08-15 13:32 | XMS_ITS | Encounter Summary ---
Author Organization [facility] [place] [address] Care Team Providers Care Conference Center Coordinator Name Role Phone Hoang Castellanos APRN Primary Care Provider [phone] Reason for Visit * Reason Comments Medication Refill Encounter Details Date Type Department Care Team (Late st Contact Info) Description 04/13/2021 Refill Primary Care at [facility] [address] [place] [phone] Hoang Castellanos APRN [address] [place] [address] Benign essential hypertension Social History Tobacco Use [...] benign documented in this encounter Care Teams Conference Center Coordinator Relationship Specialty Start Date End Date Hoang Castellanos, GATE ATTENDANT [address] [place] [address] PCP - General Family Medicine 03/12/20 documented as of this encounter
--- OUTSIDE RECORDS SUMMARY | 2024-08-15 13:32 | XMS_ITS | Encounter Summary ---
Author Organization [facility] [place] [address] Care Team Providers Care House Coordinator Name Role Phone Hoang Castellanos APRN Primary Care Provider [phone] Encounter Details Date Type Department Care Team (Late st Contact Info) Description 04/08/2021 [place] [address] Campos Puente MD [facility] [place] [address] Social History Tobacco Use Types Packs/Day Years [...] on filedocumented in this encounter Care Teams House Coordinator Relationship Specialty Start Date End Date Hoang Castellanos, SAM [address] [place] [address] PCP - General Family Medicine 03/12/20 documented as of this encounter
--- OUTSIDE RECORDS SUMMARY | 2024-08-15 13:32 | XMS_ITS | Encounter Summary ---
[place] [address] Care Team Providers Care Feeder Switchboard Operator Name Role Phone Hoang Castellanos APRN Primary Care Provider Reason for Referral * Diagnostic Test (Routine) - Closed Specialty Diagnoses / Procedures Referred By Contac t Referred To Contact Radiology Diagnoses Coronary artery disease involving [place] coronary artery of [place] heart without angina pectoris Procedures NM Pharmacologic Stress and Rest Myocardial Perfusion Dustin Haynes [facility] [place] [address] [place] [address] Referral ID Status Reason Start Date Expiration Date V isits Requested Visits Authorized [id number] Closed Specialty Service Requested 02/16/2021 07/24/2021 1 1 * Diagnostic Test (Routine) - Closed Specialty Diagnoses / Procedures Referred By Contac t Referred To Contact Radiology Diagnoses Coronary artery disease involving [place] coronary artery of [place] heart without angina pectoris Procedures NM Pharmacologic Stress CT Component Dustin Haynes [facility] [place] [address] [place] [address] Referral ID Status Reason Start Date Expiration Date V isits Requested Visits Authorized [id number] Closed Specialty Service Requested 02/16/2021 07/24/2021 1 1 * Consultation (Routine) - Closed Specialty Diagnoses / Procedures Referred By Contac t Referred To Contact Primary Care Diagnoses Coronary artery disease involving [place] coronary artery of [place] heart without angina pectoris Dustin Haynes DO [facility] [address] CARDIOLOGY DEPT [place], [place] [id number] [place] [address] [place] [address] Referral ID Status Reason Start Date Expiration Date V isits Requested Visits Authorized [id number] Closed Consult, Test & Treat 01/07/2021 01/07/2022 1 1 Reason for Visit * Consultation (Routine) - Closed Specialty Diagnoses / Procedures Referred By Contac t Referred To Contact Cardiology Diagnoses Coronary artery disease involving [place] coronary artery of [place] heart without angina pectoris CAD - Coronary artery disease involving [place] coronary artery of [place] heart without angina pectoris *ED Hoang Castellanos M, WOUND CARE PHYSICIAN [address] [place] [address] Freddy Mejias MD [facility] [place] [address] Referral ID Status Reason Start Date Expiration Date V isits Requested Visits Authorized [id number] Closed Consult, Test & Treat 07/16/2020 07/16/2021 6 6 Encounter Details Date Type Department Care Team (Late st Contact Info) Description 01/07/2021 2:20 PM EDT Office Visit Cardiology at [address] [address] Benito Reed MD [facility] [place] [address] Ananth Almodovar MD [facility] [place] [address] Dustin Haynes DO Coronary artery disease involving [place] coronary artery of [place] heart without angina pectoris Social History Tobacco [...] from the original note were not included. [facility] [place] [address] CARDIOLOGY OUTPATIENT NOTE PRIMARY CARE PROVIDER: Hoang [...] a longstanding problem and it appears Dr. eMjias had decreased her lisinopril at prior visits [...] 90 tablet 3 ??? Miscellaneous Medical [employer] [facility] 1 walker on wheels with seat 1 [...] daily (with meals). ??? lancets [facility] each by [facility].(Non-Drug; Combo Route) route daily. 100 each 3 [...] SOCIAL HISTORY: , no children. Lives in [place]. Occupation: On Disability. Smoking: Active smoker, 1-2ppd, [...] of stress test or symptoms. Dustin Haynes, Anesthesiologist/Physician; PGY-5 01/07/2021 I have seen the patient [...] Routine Coronary artery disease involving [place] coronary artery of [place] heart without angina pectoris Ordered: 01/07/2021 documented [...] who have questions please contact the health live in caregiver that requested your imaging first. ? Electronically signed by: Matthew Morrison MD, [facility] ([phone]), at 04/15/2021 3:42 PM Narrative 04/15/2021 3:42 [...] patients who have questions please contactthe health live in caregiver that requested your imaging first. Electronically signed by: Matthew Morrison MD, [facility]([phone]), at 04/15/2021 3:42 PM Benito Reed MD [...] who have questions please contact the health live in caregiver that requested your imaging first. ? Electronically signed by: Matthew Morrison MD, [facility] ([phone]), at 04/15/2021 3:42 PM Narrative 04/15/2021 3:42 [...] patients who have questions please contactthe health live in caregiver that requested your imaging first. Benito Reed MD IMG NM ORDERABL ES documented in this encounter Visit Diagnoses Diagnosis Coronary artery disease involving [place] coronary artery of [place] heart without angina pectoris Coronary artery disease involving [place] coronary artery of [place] heart without angina pectoris Coronary artery disease involving [place] coronary artery of [place] heart without angina pectoris documented in this encounter Care Teams Feeder Switchboard Operator Relationship Specialty Start Date End Date Hoang Castellanos, WOUND CARE PHYSICIAN [address] [place] [address] PCP - General Family Medicine 03/12/20 documented as of this encounter
--- OUTSIDE RECORDS SUMMARY | 2024-08-15 13:32 | XMS_ITS | Encounter Summary ---
Author Organization [facility] [place] [address] Care Team Providers Care Printer'S Devil Name Role Phone Hoang Castellanos APRN Primary Care Provider Encounter Details Date Type Department Care Team (Late st Contact Info) Description 01/13/2021 Abstract [facility] [address] [place] [phone] Provider, His MD Che Social History Tobacco [...] on filedocumented in this encounter Care Teams Printer'S Devil Relationship Specialty Start Date End Date Hoang Castellanos APRN [address] [place] [address] PCP - General Family Medicine 03/12/20 documented as of this encounter
--- OUTSIDE RECORDS SUMMARY | 2024-08-15 13:32 | XMS_ITS | Encounter Summary ---
Author Organization Count Includes [facility] Address [facility] [place] [address] Care Team Providers Care Escalator Mechanic Name Role Phone Mark Holguin APRN Primary Care Provider Reason for Referral * Consultation (Routine) - Closed Specialty Diagnoses / Procedures Referred By Vanita dimas Referred To Contact Neurology Diagnoses Intracranial hypertension Mark Holguin APRN [address] [facility] [place] [address] Gurjit Bass MD [facility] [place] [address] Referral ID Status Reason Start Date Expiration Date V isits Requested Visits Authorized [id number] Closed Specialty Service Requested 02/09/2021 02/09/2022 12 12 Reason for Visit * Reason Onset Date Comments Referral 02/09/2021 Encounter Details Date Type Department Care Team (Late Contact Info) Description 02/09/2021 Telephone Primary Care at [facility] [address] [place] [address] Minerva Calderón RN Referral Social History Tobacco [...] meantime, she had reached out to her [facility] correctional counselor/case manager Alondrashania left a VM on the PCP nurse's line to follow up on the referral request. Patient states she is trying to work on not becoming frustrated so easily. Jeannie asked me to reach out to Angela to inform her of the update that the referral was placed. Left VM for Angela at [facility], advised the requested referral has been placed [...] hypertension documented in this encounter Care Teams Escalator Mechanic Relationship Specialty Start Date End Date Mark Holguin, TECHNICAL COMMUNICATOR [address] [place] [place] [address] PCP - General Family Medicine 03/12/20 documented as of this encounter
--- OUTSIDE RECORDS SUMMARY | 2024-08-15 13:32 | XMS_ITS | Encounter Summary ---
Author Organization [facility] [address] Care Team Providers Care Coverstitch Machine Operator Name Role Phone Hoang Castellanos APRN Primary Care Provider Reason for Referral * Consultation (Routine) - Closed Specialty Diagnoses / Procedures Referred By Contac t Referred To Contact Orthopaedics Diagnoses Chronic pain of right ankle Hoang Castellanos APRN [address] [place] [address] [facility] Orthopaedics 10 [place] [address] Referral ID Status Reason Start Date Expiration Date V isits Requested Visits Authorized [id number] Closed Specialty Service Requested 12/17/2020 12/17/2021 12 12 * Consultation (Routine) - Closed Specialty Diagnoses / Procedures Referred By Contac t Referred To Contact Neurology Diagnoses Right leg weakness Dizziness Hoang Castellanos APRN [address] [place] [address] [facility] Neurology [address] [place] [phone] Referral ID Status Reason Start Date Expiration Date V isits Requested Visits Authorized [id number] Closed Specialty Service Requested 12/17/2020 12/17/2021 12 12 Reason for Visit * Reason Comments Hypertension Diabetes Encounter Details Date Type Department Care Team (Late st Contact Info) Description 12/15/2020 1:30 PM EDT Office Visit Primary Care at [facility] 10 [facility] [address] Hoang Castellanos, SAM [address] [place] [address] Benign essential hypertension; Cataract of right eye, [...] a 60 y.o. female presenting to the [facility] Primary Care Clinic Patient Due [...] diagnsoed with dense cataract Awaiting appt at [facility] Ophthalmology Right wrist pain Hx of fracture [...] Edema documented in this encounter Care Teams Coverstitch Machine Operator Relationship Specialty Start Date End Date Hoang Castellanos APRN [address] [place] [address] PCP - General Family Medicine 03/12/20 documented as of this encounter
--- OUTSIDE RECORDS SUMMARY | 2024-08-15 13:32 | XMS_ITS | Encounter Summary ---
[place] [address] Care Team Providers Care Forest Fire Prevention Specialist Name Role Phone Hoang Castellanos APRN Primary Care Provider Reason for Visit * Diagnostic Test (Routine) - Closed Specialty Diagnoses / Procedures Referred By Contac t Referred To Contact Radiology Diagnoses Coronary artery disease involving grayling coronary artery of grayling heart without angina pectoris Procedures NM Pharmacologic Stress and Rest Myocardial Perfusion Dustin Haynes, [facility] [address] [place] [address] Referral ID Status Reason Start Date Expiration Date V isits Requested Visits Authorized [id number] Closed Specialty Service Requested 02/16/2021 07/24/2021 1 1 Encounter Details Date Type Department Care Team (Late st Contact Info) Description 04/15/2021 10:32 AM EDT Hospital En[place] [address] Benito Reed MD [facility] [place] [address] Discharge Disposition: Home Social History [...] Sustained Release 24 hrIndications:Coronary artery disease involving grayling coronary artery of grayling heart without angina pectoris TAKE ONE (1) [...] 09/28/2021 Ventolin HFA 90 mcg/actuation HFA Aerosol InhalerIndications:Motorboat Operator randell obstructive pulmonary disease, unspecified COPD [...] 11:37 AM EDT Coronary artery disease involving grayling coronary artery of grayling heart without angina pectoris documented in this [...] have questions please contact the health career orientation teacher that requested your imaging first. ? Electronically signed by: Matthew Morrison MD, [facility] ([phone]), at 04/15/2021 3:42 PM Narrative 04/15/2021 3:42 [...] who have questions please contactthe health career orientation teacher that requested your imaging first. Electronically signed by: Matthew Morrison MD, [facility]([phone]), at 04/15/2021 3:42 PM Benito Reed MD [...] have questions please contact the health career orientation teacher that requested your imaging first. ? Electronically signed by: Matthew Morrison MD, [facility] ([phone]), at 04/15/2021 3:42 PM Narrative 04/15/2021 3:42 [...] who have questions please contactthe health career orientation teacher that requested your imaging first. Electronically signed by: Matthew Morrison MD, [facility]([phone]), at 04/15/2021 3:42 PM Benito Reed MD IMG NM ORDERABL ES documented in this encounter Visit Diagnoses Not on filedocumented in this encounter Care Teams Forest Fire Prevention Specialist Relationship Specialty Start Date End Date Hoang Castellanos APRN [address] [place] [address] PCP - General Family Medicine 03/12/20 documented as of this encounter
--- OUTSIDE RECORDS SUMMARY | 2024-08-15 13:33 | XMS_ITS | Encounter Summary ---
[place] [address] Care Team Providers Care Manager Assembly Name Role Phone Hoang Castellanos APRN Primary Care Provider Encounter Details Date Type Department Care Team (Late st Contact Info) Description 10/13/2020 Telephone Primary Care at [facility] 10 [place] [phone] Shannon Cruz, RN Social History Tobacco Use [...] 11:06 AM EDT Collette RN called from [facility] in regards to Jeannei Lawson Trisha. She is asking if patient needs labs and urine. Let nurse know we needed both. documented in this encounter Plan of Treatment Not on file documented as of this encounter Visit Diagnoses Not on filedocumented in this encounter Care Teams Manager Assembly Relationship Specialty Start Date End Date Hoang Castellanos, PHOTOCOPYING EQUIPMENT REPAIRER [address] [place] [address] PCP - General Family Medicine 03/12/20 documented as of this encounter
--- OUTSIDE RECORDS SUMMARY | 2024-08-15 13:33 | XMS_ITS | Encounter Summary ---
Author Organization [place] [address] Care Team Providers Care Sales Enablement Consultant Name Role Phone Hoang Castellanos APRN Primary Care Provider Reason for Visit * Reason Comments Medication Refill Encounter Details Date Type Department Care Team (Late st Contact Info) Description 09/30/2020 Refill Primary Care at [facility] 10 [facility] [place] [phone] Hoang Castellanos APRN [address] [place] [address] Gastroesophageal reflux disease Social History Tobacco Use [...] Future Appt: Visit date not found Pharmacy: [facility] Last rx: 10/29/2019: 56 tablets/capsules, 11 refills documented in this encounter Plan of Treatment Not on file documented as of this encounter Visit Diagnoses Diagnosis Gastroesophageal reflux disease Esophageal reflux documented in this encounter Care Teams Sales Enablement Consultant Relationship Specialty Start Date End Date Hoang Castellanos, TRAFFIC SIGNAL TECHNICIAN [address] [place] [address] PCP - General Family Medicine 03/12/20 documented as of this encounter
--- OUTSIDE RECORDS SUMMARY | 2024-08-15 13:33 | XMS_ITS | Encounter Summary ---
Author Organization [facility] [place] [address] Care Team Providers Care Faculty Instructor Name Role Phone Hoang Castellanos APRN Primary Care Provider [phone] Encounter Details Date Type Department Care Team (Late st Contact Info) Description 07/14/2020 Orders [place] [address] Chidi Dow MD [facility] [place] [address] Social History Tobacco Use Types Packs/Day Years [...] on filedocumented in this encounter Care Teams Faculty Instructor Relationship Specialty Start Date End Date Hoang Castellanos APRN [address] [place] [address] PCP - General Family Medicine 03/12/20 documented as of this encounter
--- OUTSIDE RECORDS SUMMARY | 2024-08-15 13:33 | XMS_ITS | Encounter Summary ---
Author Organization [facility] [place] [address] Care Team Providers Care Earth Observations Chief Scientist Name Role Phone Hoang Castellanos APRN Primary Care Provider Reason for Visit * Reason Onset Date Comments Other 10/07/2020 Encounter Details Date Type Department Care Team (Late st Contact Info) Description 10/07/2020 Telephone Cardiology at [address] [phone] Devi Thomson, RN Other Social History Tobacco [...] on filedocumented in this encounter Care Teams Earth Observations Chief Scientist Relationship Specialty Start Date End Date Hoang Castellanos, SAM [address] [place] [address] PCP - General Family Medicine 03/12/20 documented as of this encounter
--- OUTSIDE RECORDS SUMMARY | 2024-08-15 13:33 | XMS_ITS | Encounter Summary ---
Author Organization [facility] [place] [address] Care Team Providers Care Manager Of Employee Relations Name Role Phone Hoang Castellanos APRN Primary Care Provider Encounter Details Date Type Department Care Team (Latest Contact Info) Description 10/10/2020 1:00 PM EDT TH Visit (TeleHealth) Primary Care at [facility] 10 [place] [phone] Hoang Castellanos APRN 10 [facility] [place] [address] Type 2 diabetes mellitus without complication, without [...] - 10/10/2020 1:00 PM EDT [facility] Nurse Call: Patient called [...] wheelchair, getting a ramp and travel size riooter [facility] with Cardiology on 10/01-Dr. Timothy Haynes Planning to do Zio patch and Echo RECOVER program in [facility] helping her build a ramp Right [...] fall risk. She was instructed to call [employer] to start working with them for EMS [...] Vitamin B12 1,085 232 - 1,245 pg/mL [facility] Blood specimen (specimen) 10/14/2020 10:20 AM EDT 10/14/2020 4:28 PM EDT Narrative Resulting Agency Comment Spec In Lab Britnikeri Trinidad Emanuel VARGAS CHEMISTRY ORDERABLES [facility] [place] [address] * Vitamin D, 25-Hydroxy (10/14/2020 10:20 AM EDT) Vitamin D Total 25 OH 54 21 - 100 ng/mL [facility] Vit D Interp Sufficient [facility] Blood specimen (specimen) 10/14/2020 10:20 AM EDT 10/14/2020 4:28 PM EDT Narrative Resulting Agency Comment Spec In Lab Hoang Castellanos APRN CHEMISTRY ORDERABLES Performing Organization Address City/[facility]/ZIP Co de Phone Number [facility] [place] [address] * Iron and TIBC (10/14/2020 10:20 AM EDT) Iron 67 30 - 150 mcg/dL [facility] TIBC 342 250 - 450 mcg/dL [facility] Iron Saturation 20 20 - 50 % [facility] Blood specimen (specimen) 10/14/2020 10:20 AM EDT 10/14/2020 1:58 PM EDT Narrative Resulting Agency Comment Spec In Lab Hoang Vivi Emanuel WOLFN CHEMISTRY ORDERABLES [facility] [address] [place] [address] * Ferritin (10/14/2020 10:20 AM EDT) Ferritin 60 30 - 400 ng/mL [facility] Comment: Pediatric reference ranges not verified at [facility], interpret with caution. Reference ranges for females greater than 50 years of age approach values for men, i.e., 30-400 ng/mL. Blood specimen (specimen) 10/14/2020 10:20 AM EDT 10/14/2020 11:15 AM EDT Narrative Resulting Agency Comment Spec In Lab Hoang Castellanos APRN CHEMISTRY ORDERABLES Performing Organization Address City/[facility]/ZIP Co de Phone Number [facility] [address] [place] [address] * TSH (10/14/2020 10:20 AM EDT) [facility] Thyroid Stimulating Hormone 1.96 0.27 - 4.20 mcIU/mL [facility] Blood specimen (specimen) 10/14/2020 10:20 AM EDT 10/14/2020 11:15 AM EDT Narrative Resulting Agency Comment Spec In Lab Hoang Castellanos APRN CHEMISTRY ORDERABLES Performing Organization Address [facility] Co de Phone Number [facility] [address] [place] [address] * (ABNORMAL) Hemoglobin A1c (10/14/2020 10:20 AM EDT) [facility] Hemoglobin A1c 5.7(H) 4.3 - 5.6 % [facility] Estimated Average Glucose 117 mg/dL [facility] Blood specimen (specimen) 10/14/2020 10:20 AM EDT 10/14/2020 11:15 AM EDT Narrative Resulting Agency Comment Spec In Lab Hoang Castellanos APRN CHEMISTRY ORDERABLES Performing Organization Address City/[facility] Co de Phone Number [facility] [address] [place] [address] * (ABNORMAL) CMP w/fasting Glucose (10/14/2020 10:20 AM EDT) [facility] Glucose Fasting 88 65 - 99 mg/dL [facility] Comment: ?Fasting* Glucose Interpretive Criteria Normal [...] of Diabetes Mellitus, Position Statement from the [place] [employer]. ??Diabetes Care, Volume 33, Supplement 1, Jul 2009 Blood Urea Nitrogen 21(H) 8 - 18 mg/dL [facility] Creatinine 0.72 0.70 - 1.20 mg/dL [facility] Sodium 138 135 - 145 mmol/L [facility] Potassium 4.1 3.5 - 5.0 mmol/L [facility] Comment: Please note: ??Patients with WBC >100,000 may have falsely elevated Potassium levels. ??For accurate Potassium quantification in these patients send serum separator tube (gold top) for subsequent determinations. ??Contact the Clinical Chemistry Laboratory if there are any questions. Chloride 99 98 - 107 mmol/L [facility] Carbon Dioxide 28 22 - 31 mmol/L [facility] Anion Gap 11 5 - 15 mmol/L [facility] Calcium 9.5 8.5 - 10.5 mg/dL [facility] Protein, Total 6.9 6.1 - 8.0 gm/dL [facility] Albumin 4.1 3.2 - 5.2 gm/dL [facility] Aspartate Aminotransferase 11 0 - 30 unit/L [facility] Alanine Aminotransferase 6 0 - 30 unit/L [facility] Alkaline Phosphatase 108(H) 35 - 105 unit/L [facility] Bilirubin, Total 0.3 0.2 - 1.3 mg/dL [facility] Est Glomerular Filtration Rate 91 >=60 [...] Castellanos APRN CHEMISTRY ORDERABLES Performing Organization Address City/State/[facility] Co de Phone Number [facility] [address] [place] [address] documented in this encounter Visit Diagnoses Diagnosis Type 2 diabetes mellitus without complication, without long-term current use of insulin Benign essential hypertension Essential hypertension, benign Dizziness Dizziness and giddiness Hypothyroidism, acquired Unspecified hypothyroidism Vitamin B12 deficiency Other B-complex deficiencies Vitamin D deficiency Unspecified vitamin D deficiency Iron deficiency anemia, unspecified iron deficiency anemia type documented in this encounter Care Teams Manager Of Employee Relations Relationship Specialty Start Date End Date Hoang Castellanos APRN [address] [place] [address] PCP - General Family Medicine 03/12/20 documented as of this encounter
--- OUTSIDE RECORDS SUMMARY | 2024-08-15 13:33 | XMS_ITS | Encounter Summary ---
[place] [address] Care Team Providers Care Apparatus Operator Name Role Phone Hoang Castellanos APRN Primary Care Provider Encounter Details Date Type Department Care Team (Late st Contact Info) Description 07/04/2020 Telephone Primary Care at [facility] 10 [place] [phone] Isadora Hidalgo LPN Social History Tobacco Use [...] 07/03/20 Name and phone of Emergency Room: [place], [place] [phone] Name of Emergency Room Provider? Nilam Blair [...] 07/14 at 3:30 Jeannie requested that her corrections caseworker be part of this appointment documented in this encounter Plan of Treatment Not on file documented as of this encounter Visit Diagnoses Not on filedocumented in this encounter Care Teams Apparatus Operator Relationship Specialty Start Date End Date Hoang Castellanos, ICE SELLER [address] [place] [address] PCP - General Family Medicine 03/12/20 documented as of this encounter
--- OUTSIDE RECORDS SUMMARY | 2024-08-15 13:33 | XMS_ITS | Encounter Summary ---
Author [facility] [place] [address] Care Team Providers Care Consulting Sales Manager Name Role Phone Hoang Castellanos APRN Primary Care Provider Encounter Details Date Type Department Care Team (Late st Contact Info) Description 10/14/2020 Orders Only Primary Care at [facility] 10 [place] [phone] Hoang Castellanos APRN 10 [facility] [place] [address] Acute cystitis with hematuria Social History Tobacco [...] cystitis documented in this encounter Care Teams Consulting Sales Manager Relationship Specialty Start Date End Date Hoang Castellanos APRN [address] [facility] [place] [address] PCP - General Family Medicine 03/12/20 documented as of this encounter
--- OUTSIDE RECORDS SUMMARY | 2024-08-15 13:33 | XMS_ITS | Encounter Summary ---
[place] [address] Care Team Providers Care Device Engineer Name Role Phone Hoang Castellanos APRN Primary Care Provider Encounter Details Date Type Department Care Team (Late st Contact Info) Description 07/07/2020 Telephone Primary Care at [facility] 10 [place] [phone] Isadora Hidalgo LPN Social History Tobacco Use [...] on filedocumented in this encounter Care Teams Device Engineer Relationship Specialty Start Date End Date Hoang Castellanos, ONLINE MARKETING DIRECTOR [address] [place] [address] PCP - General Family Medicine 03/12/20 documented as of this encounter
--- OUTSIDE RECORDS SUMMARY | 2024-08-15 13:33 | XMS_ITS | Encounter Summary ---
Author Organization [facility] Address [facility] [place] [address] Care Team Providers Care Rubber Goods Supervisor Name Role Phone Hoang Castellanos APRN Primary Care Provider [phone] Reason for Referral * Home Health Care (Routine) - Closed Specialty Diagnoses / Procedures Referred By Contdavide t Referred To Contact Home Health Agency Diagnoses Essential hypertension Hoang Castellanos APRN [address] [place] [address] Visiting Nurse, [facility] [address] [address] Referral ID Status Reason Start Date Expiration Date V isits Requested Visits Authorized [id number] Closed Continuity of Care 10/08/2020 04/06/2021 1 1 Encounter Details Date Type Department Care Team (Late st Contact Info) Description 10/08/2020 Telephone Primary Care at [facility] [address] [facility] [place] [phone] Hoang Castellanos APRN [address] [facility] [address], [place] [phone] Social History Tobacco Use Types Packs/Day Years [...] She would like a referral to the [facility] for blood pressure checks documented in this encounter Plan of Treatment Scheduled Referrals Name Type Priority Associated Diagnoses Orde r Schedule Referral to Home Health - Clinic Use Outpatient Referral Routine Essential hypertension Ordered: 10/08/2020 documented as of this encounter Visit Diagnoses Diagnosis Essential hypertension Unspecified essential hypertension documented in this encounter Care Teams Rubber Goods Supervisor Relationship Specialty Start Date End Date Hoang Castellanos, CONTINUOUS PROCESS MACHINE OPERATOR [address] [place] [address] PCP - General Family Medicine 03/12/20 documented as of this encounter
--- OUTSIDE RECORDS SUMMARY | 2024-08-15 13:33 | XMS_ITS | Encounter Summary ---
[place] [address] Care Team Providers Care School Standards Coach Name Role Phone Hoang Castellanos APRN Primary Care Provider Reason for Visit * Reason Onset Date Comments Medication Refill 10/16/2020 Encounter Details Date Type Department Care Team (Late st Contact Info) Description 10/16/2020 Telephone Primary Care at [facility] 10 [facility] [place] [phone] Shannon Cruz, biodiesel product development manager Refill Social History Tobacco Use Types Packs/Day [...] type documented in this encounter Care Teams School Standards Coach Relationship Specialty Start Date End Date Hoang Castellanos APRN [address] [place] [address] PCP - General Family Medicine 03/12/20 documented as of this encounter
--- OUTSIDE RECORDS SUMMARY | 2024-08-15 13:33 | XMS_ITS | Encounter Summary ---
[place] [address] Care Team Providers Care Hazmat Cdl Driver Name Role Phone Hoang Castellanos APRN Primary Care Provider Reason for Referral * Diagnostic Test (Routine) - Closed Specialty Diagnoses / Procedures Referred By Contac t Referred To Contact Diagnoses Coronary artery disease involving [place] coronary artery of [place] heart without angina pectoris Repeated falls Procedures Ziopatch 48 Hrs-15 Days Dustin Haynes [facility] [place] [address] Referral ID Status Reason Start Date Expiration Date V isits Requested Visits Authorized [id number] Closed Specialty Service Requested 10/01/2020 10/01/2021 1 1 Reason for Visit * Diagnostic Test (Routine) - Closed Specialty Diagnoses / Procedures Referred By Contac t Referred To Contact Diagnoses Coronary artery disease involving [place] coronary artery of [place] heart without angina pectoris Repeated falls Procedures Ziopatch 48 Hrs-15 Days Dustin Haynes [facility] [place] [address] Referral ID Status Reason Start Date Expiration Date V isits Requested Visits Authorized [id number] Closed Specialty Service Requested 10/01/2020 10/01/2021 1 1 Encounter Details Date Type Department Care Team (Late st Contact Info) Description 10/09/2020 8:25 AM EDT - 10/09/2020 11:59 PM EDT Hospital Encounter Non-Invasive Cardiology Lab [facility] [place] [phone] Benito Reed MD [facility] [place] [address] Coronary artery disease involving [place] coronary artery of [place] heart without angina pectoris; Repeated falls Discharge [...] 1 06/02/2020 12/01/2021 ibuprofen (Advil;Motrin) 800 mg TabletIndications:Residential Real Estate Appraiser randell right-sided low back pain without sciatica [...] 8:29 AM EDT Coronary artery disease involving [place] coronary artery of [place] heart without angina pectoris Repeated falls documented in this encounter Results * Ziopatch 48 Hrs-15 Days (10/09/2020 8:29 AM EDT) Anatomical Region Laterality Modality Other Narrative 11/07/2020 2:39 PM EDT [facility] ? Zio Patch? Ambulatory Cardiac Event [...] Visit Diagnoses Diagnosis Coronary artery disease involving [place] coronary artery of [place] heart without angina pectoris Repeated falls Other symptoms involving nervous and musculoskeletal systems documented in this encounter Care Teams Hazmat Cdl Driver Relationship Specialty Start Date End Date Hoang Castellanos, PHYSICAL BIOCHEMIST [address] [place] [address] PCP - General Family Medicine 03/12/20 documented as of this encounter
--- OUTSIDE RECORDS SUMMARY | 2024-08-15 13:33 | XMS_ITS | Encounter Summary ---
Author Organization Formerly [facility] Address [facility] [place] [address] Care Team Providers Care Grader Patrol Name Role Phone Hoang Castellanos APRN Primary Care Provider Reason for Referral * Consultation (Routine) - Closed Specialty Diagnoses / Procedures Referred By Contac t Referred To Contact Cardiology Diagnoses Coronary artery disease involving [place] coronary artery of [place] heart without angina pectoris CAD - Coronary artery disease involving [place] coronary artery of [place] heart without angina pectoris *[facility] Hoang Castellanos APRN [address] [place] [place] [address] Freddy Mejias MD [facility] [place] [address] Referral ID Status Reason Start Date Expiration Date V isits Requested Visits Authorized [id number] Closed Consult, Test & Treat 07/16/2020 07/16/2021 6 6 * Diagnostic Test (Routine) - Closed Specialty Diagnoses / Procedures Referred By Contac t Referred To Contact Radiology Diagnoses Dizziness Procedures MRI Brain wwo Contrast (Generic) Hoang Castellanos APRN [address] [place] [address] [facility] [address] [place] [address] Referral ID Status Reason Start Date Expiration Date V isits Requested Visits Authorized [id number] Closed Specialty Service Requested 07/14/2020 01/12/2022 1 1 Reason for Visit * Reason Comments Follow-up ER Visit Encounter Details Date Type Department Care Team (Latest Contact Info) Description 07/14/2020 3:30 PM EST TH Visit (TeleHealth) Primary Care at [address] [address] Hoang Castellanos APRN 10 [facility] [place] [address] Dizziness; Sprain of right ankle, unspecified ligament, subsequent encounter; Generalized weakness; Benign essential hypertension; Coronary artery disease involving [place] coronary artery of [place] heart without angina pectoris Social History Tobacco [...] - 07/14/2020 3:30 PM EST [facility]ty Clinic [facility] Telehealth Encounter Nurse Call: Patient called [...] room visit. Jeannie Rico was seen at [facility] emergency room on 07/03/2020 for Right [...] Benign essential hypertension Coronary artery disease involving [place] coronary artery of [place] heart without angina pectoris - Referral to [...] Outpatient Referral Routine Coronary artery disease involving [place] coronary artery of [place] heart without angina pectoris Ordered: 07/16/2020 documented [...] ? Electronically signed by: Yannick Solis MD, [facility] ([phone]), at 09/16/2020 1:32 PM Narrative 09/16/2020 1:32 [...] below. Electronically signed by: Yannick Solis MD, [facility]([phone]), at 09/16/2020 1:32 PM Hoang Castellanos APRN IMG MRI ORDERABLES documented in this encounter Visit Diagnoses Diagnosis Dizziness Dizziness and giddiness Sprain of right ankle, unspecified ligament, subsequent encounter Generalized weakness Other malaise and fatigue Benign essential hypertension Essential hypertension, benign Coronary artery disease involving [place] coronary artery of [place] heart without angina pectoris Dizziness Dizziness and giddiness documented in this encounter Care Teams Grader Patrol Relationship Specialty Start Date End Date Hoang Castellanos APRN [address] [place] [address] PCP - General Family Medicine 03/12/20 documented as of this encounter
--- OUTSIDE RECORDS SUMMARY | 2024-08-15 13:33 | XMS_ITS | Encounter Summary ---
[place] [address] Care Team Providers Care Hop Strainer Name Role Phone Hoang Castellanos APRN Primary Care Provider Reason for Visit * Reason Onset Date Comments Eye Problem 12/10/2020 Sudden vision lo ss RE Encounter Details Date Type Department Care Team (Late st Contact Info) Description 12/10/2020 Tele[place] [phone] Ilana Whittington MD [facility] [place] [address] Eye Problem (Sudden vision loss RE) Social [...] encounter, patient prefers to be seen at [facility] which is appropriate for eye problem, however, given systemic issues patient is describing, PCP visit likely more time sensitive give possible symptoms of vascular changes/episodes. LVM for patient call back. documented in this encounter Plan of Treatment Not on file documented as of this encounter Visit Diagnoses Not on filedocumented in this encounter Care Teams Hop Strainer Relationship Specialty Start Date End Date Hoang Castellanos, MENSWEAR SALESPERSON [address] [place] [address] PCP - General Family Medicine 03/12/20 documented as of this encounter
--- OUTSIDE RECORDS SUMMARY | 2024-08-15 13:33 | XMS_ITS | Encounter Summary ---
[place] [address] Care Team Providers Care Physician Chief Of Pathology Name Role Phone Hoang Castellanos APRN Primary Care Provider [phone] Encounter Details Date Type Department Care Team (Late st Contact Info) Description 07/15/2020 Telephone Primary Care at [facility] 10 [place] [phone] Isadora Hidalgo LPN Social History Tobacco Use [...] LPN - 07/15/2020 9:58 AM EST 07/14 [facility] called to report b/p for 07/09 140/80 07/11 136/70 07/14 154/80 documented in this encounter Plan of Treatment Not on file documented as of this encounter Visit Diagnoses Not on filedocumented in this encounter Care Teams Physician Chief Of Pathology Relationship Specialty Start Date End Date Hoang Castellanos, GUIDE TOUR [address] [place] [place] [address] PCP - General Family Medicine 03/12/20 documented as of this encounter
--- OUTSIDE RECORDS SUMMARY | 2024-08-15 13:33 | XMS_ITS | Encounter Summary ---
[place] [address] Care Team Providers Care Marketing Regional Consultant Name Role Phone Hoang Castellanos APRN Primary Care Provider [phone] Encounter Details Date Type Department Care Team (Late st Contact Info) Description 07/16/2020 Telephone Primary Care at [facility] 10 [facility] [place] [phone] Isadora Hidalgo LPN Social History Tobacco Use [...] filedocumented in this encounter Care Teams Marketing Regional Consultant Relationship Specialty Start Date End Date Hoang Castellanos APRN [address] [place] [address] PCP - General Family Medicine 03/12/20 documented as of this encounter
--- OUTSIDE RECORDS SUMMARY | 2024-08-15 13:33 | XMS_ITS | Encounter Summary ---
Author Organization [facility] [place] [address] Care Team Providers Care Food Order Delivery Runner Name Role Phone Hoang Castellanos APRN Primary Care Provider Reason for Visit * Reason Onset Date Comments Medication Refill 08/12/2020 Encounter Details Date Type Department Care Team (Late st Contact Info) Description 08/12/2020 Refill Primary Care at [facility] 10 [facility] [place] [phone] Hoang Castellanos APRN [address] [place] [address] Social History Tobacco Use Types Packs/Day Years [...] PM EST Request received via fax from [facility] for meloxicam Last Prescription Fill Date: [...] filedocumented in this encounter Care Teams Food Order Delivery Runner Relationship Specialty Start Date End Date Hoang Castellanos, CANDY PULLER [address] [place] [place] [address] PCP - General Family Medicine 03/12/20 documented as of this encounter
--- OUTSIDE RECORDS SUMMARY | 2024-08-15 13:33 | XMS_ITS | Encounter Summary ---
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 right-sided low back pain without sciatica [...] Comment Spec In Lab Britnik[facility] Trinidad Emanuel DOT NET DEVELOPER HEMATOLOGY ORDERABLE S Performing Organization Address City/[facility]/ZIP Co de Phone Number LABORATORY [address] [place] [address] * (ABNORMAL) Hemogram (10/14/2020 10:20 AM EDT) [...] APRN HEMATOLOGY ORDERABLE S Performing Organization Address City/[facility]/ZIP Co de Phone Number LABORATORY [address] [place] [address] * (ABNORMAL) CMP w/fasting Glucose (10/14/2020 10:20 AM EDT) [facility] Glucose Fasting 88 65 - 99 mg/dL [facility] Comment: ?Fasting* Glucose Interpretive Criteria [...] of Diabetes Mellitus, Position Statement from the [place] [employer]. ??Diabetes Care, Volume 33, Supplement 1, Jul 2009 Blood Urea Nitrogen 21(H) 8 - 18 mg/dL [facility] Creatinine 0.72 0.70 - 1.20 mg/dL [email or web address] Sodium 138 135 - 145 mmol/L [facility] Potassium 4.1 3.5 - 5.0 mmol/L [email or web address] Comment: Please note: ??Patients with WBC >100,000 may have falsely elevated Potassium levels. ??For accurate Potassium quantification in these patients send serum separator tube (gold top) for subsequent determinations. ??Contact the Clinical Chemistry Laboratory if there are any questions. Chloride 99 98 - 107 mmol/L [facility] Carbon Dioxide 28 22 - 31 mmol/L [facility] Anion Gap 11 5 - 15 mmol/L [email or web address] Calcium 9.5 8.5 - 10.5 mg/dL [email or web address] Protein, Total 6.9 6.1 - 8.0 gm/dL [facility] Albumin 4.1 3.2 - 5.2 gm/dL [facility] Aspartate Aminotransferase 11 0 - 30 unit/L [facility] Alanine Aminotransferase 6 0 - 30 unit/L [email or web address] Alkaline Phosphatase 108(H) 35 - 105 [...] Castellanos APRN CHEMISTRY ORDERABLES Performing Organization Address [facility] Co de Phone Number [facility] [address] [place] [address] * (ABNORMAL) Hemoglobin A1c (10/14/2020 10:20 AM EDT) Hemoglobin A1c 5.7(H) 4.3 - 5.6 % LABORATORY Estimated Average Glucose 117 mg/dL [facility] Blood specimen (specimen) 10/14/2020 10:20 AM EDT 10/14/2020 11:15 AM EDT Narrative Resulting Agency Comment Spec In Lab Hoang Castellanos APRN CHEMISTRY ORDERABLES Performing Organization Address City/[facility] Co de Phone Number [facility] [address] [place] [address] * TSH (10/14/2020 10:20 AM EDT) Thyroid Stimulating Hormone 1.96 0.27 - 4.20 mcIU/mL [facility] Blood specimen (specimen) 10/14/2020 10:20 AM EDT 10/14/2020 11:15 AM EDT Narrative Resulting Agency Comment Spec In Lab Hoang Castellanos APRN CHEMISTRY ORDERABLES Performing Organization Address City/[facility]/ZIP Co de Phone Number [facility] [address] [place] [address] * Ferritin (10/14/2020 10:20 AM EDT) [facility] Ferritin 60 30 - 400 ng/mL LABORATORY [...] Castellanos APRN CHEMISTRY ORDERABLES Performing Organization Address [facility]/ZIP Co de Phone Number [facility] [address] [place] [address] * Iron and TIBC (10/14/2020 10:20 AM EDT) [facility] Iron 67 30 - 150 mcg/dL LABORATORY TIBC 342 250 - 450 mcg/dL LABORATORY Iron Saturation 20 20 - 50 % [facility] Blood specimen (specimen) 10/14/2020 10:20 AM EDT 10/14/2020 1:58 PM EDT Narrative Resulting Agency Comment Spec In Lab Hoang Castellanos APRN CHEMISTRY ORDERABLES Performing Organization Address [facility]/ZIP Co de Phone Number [facility]ORY [address] [place] [address] * Vitamin D, 25-Hydroxy (10/14/2020 10:20 AM EDT) [facility] Vitamin D Total 25 OH 54 21 - 100 ng/mL [facility] Vit D Interp Sufficient [facility] Blood specimen (specimen) 10/14/2020 10:20 AM EDT 10/14/2020 4:28 PM EDT Narrative Resulting Agency Comment Spec In Lab Hoang Trinidad Emanuel DOT NET DEVELOPER CHEMISTRY ORDERABLES Performing Organization Address City/[facility]/ZIP Co de Phone Number [facility] [place] [address] * Vitamin B12 (10/14/2020 10:20 AM EDT) Vitamin B12 1,085 232 - 1,245 pg/mL [facility] Blood specimen (specimen) 10/14/2020 10:20 AM EDT 10/14/2020 4:28 PM EDT Narrative Resulting Agency Comment Spec In Lab Hoang Trinidad Emanuel WOLFN CHEMISTRY ORDERABLES Performing Organization Address City/[facility]/ZIP Co de Phone Number [facility] [place] [address] * (ABNORMAL) _Urinalysis with microscopic (10/14/2020 10:20 [...] Slightly Cloudy [facility] Specific [place] Urine Automated 1.020 1.006 - 1.030 LABORATORY [...] Castellanos APRN URINE ORDERABLES Performing Organization Address [facility] Co de Phone Number LABORATORY [address] [place] [address] * (ABNORMAL) Urine culture Clean Catch Urine [...] - GENER AL ORDERABLES Performing Organization Address City/[facility]/ZIP Co de Phone Number [facility] [place] [address] documented in this encounter Visit Diagnoses Diagnosis Foul smelling urine Other nonspecific finding on examination of urine Vitamin B12 deficiency Other B-complex deficiencies Vitamin D deficiency Unspecified vitamin D deficiency Iron deficiency anemia, unspecified iron deficiency anemia type Hypothyroidism, acquired Unspecified hypothyroidism Type 2 diabetes mellitus without complication, without long-term current use of insulin documented in this encounter Care Teams Asbestos Brake Lining Finisher Helper Relationship Specialty Start Date End Date Hoang Castellanos, DOT NET DEVELOPER [address] [place] [address] PCP - General Family Medicine 03/12/20 documented as of this encounter
--- OUTSIDE RECORDS SUMMARY | 2024-08-15 13:33 | XMS_ITS | Encounter Summary ---
[place] [address] Care Team Providers Care Emergency Services Director Name Role Phone Hoang Castellanos APRN Primary Care Provider Encounter Details Date Type Department Care Team (Late st Contact Info) Description 12/09/2020 Telephone Primary Care at [facility] [address] [place] [phone] Ananth Wilson MD 10 [facility] [place] [address] Social History Tobacco Use Types Packs/Day Years [...] Time: 7:22 PM Caller: self Phone number: [phone] Primary care provider: Hoang Castellanos APRN Reason [...] on filedocumented in this encounter Care Teams Emergency Services Director Relationship Specialty Start Date End Date Hoang aCstellanos APRN [address] [place] [address] PCP - General Family Medicine 03/12/20 documented as of this encounter
--- OUTSIDE RECORDS SUMMARY | 2024-08-15 13:33 | XMS_ITS | Encounter Summary ---
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 Repeated falls Procedures Ziopatch 48 Hrs-15 Days Dustin Haynes [facility] [place] [address] Referral ID Status Reason Start Date Expiration Date V isits Requested Visits Authorized [id number] Closed Specialty Service Requested 10/01/2020 10/01/2021 1 1 * Diagnostic Test (Routine) - Closed Specialty Diagnoses / Procedures Referred By Contac t Referred To Contact Cardiology Diagnoses 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 Procedures Echocardiogram Transthoracic([facility] or [facility]) Dustin Haynes [facility] [place] [address] [facility] [place] [address] Referral ID Status Reason Start Date Expiration Date V isits Requested Visits Authorized [id number] Closed Specialty Service Requested 10/01/2020 10/01/2021 1 1 Reason for Visit * Consultation (Routine) - Closed Specialty Diagnoses / Procedures Referred By Contac t Referred To Contact Cardiology Diagnoses 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 CAD - 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 *BETTYE Hoang Castellanos, PARTY PLAN DEMONSTRATOR [address] [place] [address] Freddy Mejias MD [facility] [place] [address] Referral ID Status Reason Start Date Expiration Date V isits Requested Visits Authorized [id number] Closed Consult, Test & Treat 07/16/2020 07/16/2021 6 6 Encounter Details Date Type Department Care Team (Late st Contact Info) Description 10/01/2020 3:00 PM EST TH Visit (TeleHealth) Cardiology at [address] [address] Benito Reed MD [facility] [place] [address] Dustin Haynes DO 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 [facility] [place] [address] CARDIOLOGY OUTPATIENT TELEHEALTH NOTE PRIMARY CARE PROVIDER: [...] ??? Osteoporosis DEXA done at [facility] on 10/29/15: osteoporosis at the [...] 90 tablet 3 ??? Miscellaneous Medical Supply [facility] 1 walker on [...] week. 36 tablet3 ??? lancets 30 gauge [facility] 1 each by [facility].(Non-Drug; Combo Route) route [...] SOCIAL HISTORY: , no children. Lives in [place]. Occupation: On Disability. Smoking: Active smoker, 1-2ppd, [...] of type II DM Dustin Haynes DO License Inspector; PGY-5 10/01/2020 Cardiology Attending Attestation: 60 y.o. [...] to the recommendations above. Benito Reed MD [place] [phone] (office); Pager #[phone] Email: [email or web address] documented in this encounter Plan of Treatment Not on file documented as of this encounter Results * ECHO COMPLETE W CONTRAST (01/07/2021 1:27 PM EDT) EF 65 HEARTLAB SYSTEM Anatomical Region Laterality Modality Other 01/07/2021 Narrative 01/07/2021 1:36 PM EDT Procedure: ?Transthoracic Echocardiogram Patient: ?CARBANGIE JEANNIE L ? (Age): 1960(60y) Med Rec#: ? [id number] ?Sex: ?F ? Site Loc: ? [facility] ?Ht / Wt: ??163(cm)/99(kg) Pt. Loc: ?Echo Lab ?BSA: ?2.03 Study Date: ?? 01/07/2021 ?Pt. Type: Outpatient Tape: ? 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 m/sec ? MV deceleration ccki551.41 ? msec ? MV A-wave Vmax ?0.81 [...] ? Mid-Inferior ?Normal ? Mid-Inferoseptal ?Normal ? [place]-Septal ? Normal ? [place]-Anterior ? Normal ? [place]-Lateral ?Normal ? [place]-Inferior ? Normal ? [place]-Tip ?Normal ? This report has been electronically signed by: Freddy Mejias MD ? 01/07/2021 13:36:15 Images reviewed and interpretation verified [facility] Cardiac Ultrasound Laboratory Procedure Note Freddy Mejias MD - 01/07/2021 Procedure: Transthoracic Echocardiogram Patient: APOLINAR Lawson DOB(Age): 1960(60y) Med Rec#: [id number] Sex: F Site Loc: [facility] Ht / Wt: 163(cm)/99(kg) Pt. Loc: Echo Lab BSA: 2.03 Study Date: 01/07/2021 Pt. 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.10) BP: [...] MV E-wave Vmax 0.56 m/sec MV deceleration [id number] msec MV A-wave Vmax 0.81 m/sec MV [...] Normal Mid-Posterolateral Normal Mid-Inferior Normal Mid-Inferoseptal Normal [place]-Septal Normal [place]-Anterior Normal [place]-Lateral Normal [place]-Inferior Normal [place]-Tip Normal This report has been electronically signed by: Freddy Mejias MD 01/07/2021 13:36:15 Images reviewed and interpretation verified [facility] Cardiac Ultrasound Laboratory Benito Reed MD ECHO ORDERABLES * Ziopatch 48 Hrs-15 Days (10/09/2020 8:29 AM EDT) Anatomical Region Laterality Modality Other Narrative 11/07/2020 2:39 PM EDT [facility] ? Zio Patch? 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
--- OUTSIDE RECORDS SUMMARY | 2024-08-15 13:33 | XMS_ITS | Encounter Summary ---
Author Organization [facility] [place] [address] Care Team Providers Care Pearl Hand Name Role Phone Hoang Castellanos APRN Primary Care Provider Encounter Details Date Type Department Care Team (Late st Contact Info) Description 12/10/2020 Telephone Primary Care at [facility] [address] [place] [phone] Alva Castellanos LPN Social History Tobacco Use [...] eye. I explained she should see an Home Service Demonstrator, I gave her a number for [facility].That is where she wanted to go. I told her to leave a message with their answering service. She asked about keeping the appointment today, I told her she needs to see the Home Service Demonstrator hopefully this morning. documented in this encounter Plan of Treatment Not on file documented as of this encounter Visit Diagnoses Not on filedocumented in this encounter Care Teams Pearl Hand Relationship Specialty Start Date End Date Hoang Castellanos, RESEARCH PROJECT MANAGER [address] [place] [address] PCP - General Family Medicine 03/12/20 documented as of this encounter
--- OUTSIDE RECORDS SUMMARY | 2024-08-15 13:33 | XMS_ITS | Encounter Summary ---
[place] [address] Care Team Providers Care Picket Labor Union Name Role Phone Hoang Castellanos APRN Primary Care Provider Encounter Details Date Type Department Care Team (Late st Contact Info) Description 10/08/2020 Telephone Primary Care at [facility] [address] [place] [phone] Shannon Cruz RN Social History Tobacco Use [...] get out of the appt. Talked to [facility] PT, they are trying to help with [...] and dark urine. She is asking for [facility] RN to come in for BP monitoring [...] tract infection, submit a new specimen. (A) [facility] Urine specimen obtained by clean catch procedure (specimen) 10/14/2020 10:20 AM EDT 10/14/2020 4:00 PM EDT Narrative Resulting Agency Comment Spec In Lab Hoang Castellanos APRN MICROBIOLOGY - GENER AL ORDERABLES [facility] [place] [address] * (ABNORMAL) _Urinalysis with microscopic (10/14/2020 10:20 [...] Appearance, Urine Dipstick Slightly Cloudy LABORATORY Specific [place] Urine Automated 1.020 1.006 - 1.030 LABORATORY [...] Agency Comment Spec In Lab Hoang Castellanos POWDER GUARD URINE ORDERABLES LABORATORY [address] [place] [address] documented in this encounter Visit Diagnoses Diagnosis Foul smelling urine Other nonspecific finding on examination of urine documented in this encounter Care Teams Picket Labor Union Relationship Specialty Start Date End Date Hoang Castellanos, POWDER GUARD [address] [place] [address] PCP - General Family Medicine 03/12/20 documented as of this encounter
--- OUTSIDE RECORDS SUMMARY | 2024-08-15 13:33 | XMS_ITS | Encounter Summary ---
Author Organization [facility] Address [facility] [address] [place] [address] Care Team Providers Care Terminal Carman Name Role Phone Hoang Castellanos APRN Primary Care Provider [phone] Reason for Visit * Reason Comments Right Ankle Pain Encounter Details Date Type Department Care Team (Late st Contact Info) Description 07/03/2020 11:32 AM EST - 07/03/2020 6:11 PM EST Emergency Emergency Services at [facility] [address] [facility] [place] [phone] Nilam Blair MD [facility] [place] [address] Sprain of right ankle, unspecified ligament, initial [...] sent through Care Everywhere. 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 TONSILLECTOMY ??? UPPER GI ENDOSCOPY, EXAM 12/04/2010 UPPER GI ENDOSCOPY performed by DEE WRIGHT at [facility] Review of Systems All other [...] ligament, initial encounter Nilam Blair MD 07/03/20 3578 * Evonne Evangelista RN - 07/03/2020 4:50 [...] to the patient's preferred agency, [facility] ([phone]). * Care Management - Lele Davenport - 07/03/2020 4:27 PM EST Met with pt at RN request to discuss VNA services for home PT and review any other needs. Pt is agreeable to VNA services and after reviewing options requests referral to [facility]. She denies need for other community services [...] a commode for free through localagencies including [facility]. VNA referral initiated, will continue [...] ??? Osteoporosis Overview Note: DEXA done at [facility] on 10/29/15: osteoporosis at the left hip T-3, and osteopenia of the spine T-1.9 ??? Atherosclerosis of [place] coronary artery of [place] heart without angina pectoris ??? Smokes cigarettes [...] DEE WRIGHT at [facility] Prior Hospital Care related to [...] her friend, otherwise will get one from [employer] ?? Educated pt on availability of shoe [...] Pt is in agreement Charges: Ev low Fishki, Self care 2017 PT Evaluation Code Rationale: [...] Date/Time Associated Diagnosis Comments RAPID COVID-19 PCR ([facility]D/[facility]) STAT 07/03/2020 1:27 PM EST HEMOGRAM [...] SARS-CoV-2 RNA (Rapid) Not Detected Not Detected [facility] [...] using the Simplexa COVID-19 Direct Assay by Spot Runner as authorized by the FDA issued Emergency [...] Department of Pathology and Laboratory Medicine at [facility], certified under the Clinical Laboratory Improvement [...] fact sheets at the following FDA website: https://www.fda.gov/medical-devices/ufqvxenvtdw-jxnpcoy-1152-dgrsj-20-dzeadsrtp- use-a imyypebytxuur-aycocgc-gldldqi/oyjik-fgtmdkdnhdm-suez SARS-CoV-2 Source PHOTOGRAPHY SPOTTER Swab MA RY [facility] Nasopharyngeal swab (specimen) 07/03/2020 1:27 PM EST 07/03/2020 2:37 PM EST Comment:Symptoms->COVID-19 S uspected Narrative Resulting Agency Comment Spec In Lab Nilam Blair MD MICROBIOLOGY - GENER AL ORDERABLES [facility] [place] [address] * (ABNORMAL) Differential, Automated (07/03/2020 12:55 PM [...] MD HEMATOLOGY ORDERABLE S Performing Organization Address City/[facility]/ZIP Co de Phone Number LABORATORY [address] [place] [address] * (ABNORMAL) Hemogram (07/03/2020 12:55 PM EST) [...] Blair MD HEMATOLOGY ORDERABLE S LABORATORY [address] [place] [address] * Basic Metabolic Panel (non-fasting) (07/03/2020 12:55 [...] Blair MD CHEMISTRY ORDERABLES LABORATORY [address] [place] [address] * Prothrombin Time (07/03/2020 12:55 PM EST) [...] Nilam Blair MD HEMATOLOGY ORDERABLE S [place] [facility] [address] [place] [address] * XR Ankle Min 3 views Right (Generic) (07/03/2020 12:41 PM EST) Anatomical Region Laterality Modality Ankle Right Digital Radiogra phy Impressions 07/03/2020 1:02 PM EST No acute fracture. Thank you for letting us participate in the care of this patient. For questions regarding this report, please contact the number below. ? Electronically signed by: MONTY GRIFFIN DO, [facility] ([phone]), at 07/03/2020 1:02 PM Narrative 07/03/2020 1:02 [...] below. Nilam Blair MD IMG DX ORDERABLES * [...] signed by: MONTY GRIFFIN DO [facility] ([phone]), at 07/03/2020 1:01 PM Narrative 07/03/2020 1:01 [...] signed by: MONTY GRIFFIN DO, [facility]([phone]), at 07/03/2020 1:01 PM Nilam Blair MD [...] documented as of this encounter Care Teams Terminal Carman Relationship Specialty Start Date End Date Hoang Castellanos, SAM [address] [place] [address] PCP - General Family Medicine 03/12/20 documented as of this encounter
--- OUTSIDE RECORDS SUMMARY | 2024-08-15 13:33 | XMS_ITS | Encounter Summary ---
[place] [address] Care Team Providers Care Vp Account Director Name Role Phone Hoang Castellanos APRN Primary Care Provider [phone] Reason for Visit * Reason Onset Date Comments Results 10/14/2020 Encounter Details Date Type Department Care Team (Late st Contact Info) Description 10/14/2020 Telephone Primary Care at [facility] [address] [facility] [place] [phone] Shannon Chung, RN Results Social History Tobacco [...] also inform patient that she can call [facility] to start the process for EMS transportation [...] Yesterday Message Contents Hoang Castellanos APRN P [facility] Primary Care Nurse Please inform patient [...] filedocumented in this encounter Care Teams Vp Account Director Relationship Specialty Start Date End Date Hoang Castellanos APRN [address] [place] [place] [address] PCP - General Family Medicine 03/12/20 documented as of this encounter
--- OUTSIDE RECORDS SUMMARY | 2024-08-15 13:33 | XMS_ITS | Encounter Summary ---
Author Organization [facility] [place] [address] Care Team Providers Care Outside Salesperson Name Role Phone Hoang Castellanos APRN Primary Care Provider [phone] Encounter Details Date Type Department Care Team (Late st Contact Info) Description 07/03/2020 12:30 PM EST Ancillary Procedure Radiology Xray at [facility] [place] [address] Social History Tobacco Use Types [...] filedocumented in this encounter Care Teams Outside Salesperson Relationship Specialty Start Date End Date Hoang Castellanos APRN [address] [place] [address] PCP - General Family Medicine 03/12/20 documented as of this encounter
--- OUTSIDE RECORDS SUMMARY | 2024-08-15 13:33 | XMS_ITS | Encounter Summary ---
Author Organization [facility] [place] [address] Care Team Providers Care Medical Laboratory Scientist Name Role Phone Hoang Castellanos APRN Primary Care Provider [phone] Encounter Details Date Type Department Care Team (Late st Contact Info) Description 07/03/2020 12:25 PM EST Ancillary Procedure Radiology Xray at [facility] [place] [address] Social History Tobacco Use Types [...] filedocumented in this encounter Care Teams Medical Laboratory Scientist Relationship Specialty Start Date End Date Hoang Castellanos APRN [address] [place] [address] PCP - General Family Medicine 03/12/20 documented as of this encounter
--- OUTSIDE RECORDS SUMMARY | 2024-08-15 13:33 | XMS_ITS | Encounter Summary ---
Author Organization [facility] [place] [address] Care Team Providers Care Guest Services Officer Name Role Phone Hoang Castellanos APRN Primary Care Provider Reason for Visit * Reason Comments Medication Refill Encounter Details Date Type Department Care Team (Late st Contact Info) Description 11/24/2020 Refill Primary Care at [facility] [address] [facility] [place] [phone] Hoang Castellanos APRN [address] [facility] [address] Social History Tobacco Use Types Packs/Day Years [...] FeroSul 325 (65 Fe) MG Tablet] 12 [id number] Sig: TAKE ONE (1) TABLET BY MOUTH THREE TIMES A WEEK Last Appt: 10/10/2020 Future Appt: 12/15/2020 Comments: last prescribed by Priya Charles APRN Pharmacy: [facility] Last rx: 01/08/2020: 36 tablets/capsules, 3 refills Lab Results Component Value Date IRON 67 10/14/2020 TIBC 342 10/14/2020 FERRITIN 60 10/14/2020 documented in this encounter Plan of Treatment Not on file documented as of this encounter Visit Diagnoses Not on filedocumented in this encounter Care Teams Guest Services Officer Relationship Specialty Start Date End Date Hoang Castellanos APRN [address] [place] [address] PCP - General Family Medicine 03/12/20 documented as of this encounter
--- OUTSIDE RECORDS SUMMARY | 2024-08-15 13:33 | XMS_ITS | Encounter Summary ---
Author Organization [facility] Address [facility] [place] [address] Care Team Providers Care Plastics Technician Name Role Phone Hoang Castellanos APRN Primary Care Provider Reason for Referral * Home Health Care (Routine) - Closed Specialty Diagnoses / Procedures Referred By Contac t Referred To Contact Home Health Agency Diagnoses Benign essential hypertension Generalized weakness Hoang Castellanos APRN [address] [place] [address] Visiting Nurse[facility] & [address] [address] Referral ID Status Reason Start Date Expiration Date V isits Requested Visits Authorized [id number] Closed Continuity of Care 07/07/2020 01/03/2021 1 1 Reason for Visit * Reason Onset Date Comments Triage 07/07/2020 Encounter Details Date Type Department Care Team ([facility] Contact Info) Description 07/07/2020 Telephone Primary Care at [facility] [address] [place] [address] Jeannie Luciano, body liner Social History Tobacco Use Types Packs/Day Years [...] telehealth she has one tomorrow with her disease case manager rn and wants RA to be part of [...] her medications for the day. Hoang Castellanos, LEATHER SPRAYER to [facility] Primary Care Nurse ?? 07/07/20 9:29 [...] AM EST Pt called through triage because [facility] PT made a visit with her over [...] fatigue documented in this encounter Care Teams Plastics Technician Relationship Specialty Start Date End Date Hoang Castellanos, SAM [address] [place] [address] PCP - General Family Medicine 03/12/20 documented as of this encounter
--- OUTSIDE RECORDS SUMMARY | 2024-08-15 13:33 | XMS_ITS | Encounter Summary ---
[place] [address] Care Team Providers Care Vocational Rehabilitation Counselor Name Role Phone Hoang Castellanos APRN Primary Care Provider Encounter Details Date Type Department Care Team (Late st Contact Info) Description 10/15/2020 Telephone Primary Care at [facility] [address] [place] [phone] Shannon Cruz, RN Social History Tobacco Use [...] on filedocumented in this encounter Care Teams Vocational Rehabilitation Counselor Relationship Specialty Start Date End Date Hoang Castellanos, ASM [address] [place] [address] PCP - General Family Medicine 03/12/20 documented as of this encounter
--- OUTSIDE RECORDS SUMMARY | 2024-08-15 13:33 | XMS_ITS | Encounter Summary ---
[place] [address] Care Team Providers Care Joint Cleaning Machine Operator Name Role Phone Hoang Castellanos APRN Primary Care Provider Encounter Details Date Type Department Care Team (Late st Contact Info) Description 12/09/2020 Telephone Primary Care at [facility] [address] [facility] [place] [phone] Hoang Castellanos APRN [address] [place] [place] [address] Social History Tobacco Use Types Packs/Day Years [...] Calderón RN - 12/09/2020 5:01 PM EDT DOCTOR OF MEDICINE came to triage office to report patient is scheduled for OV tomorrow for loss of sight right eye, PMH DM. She states per provider Anthony Carrington APRN, patient needs to be triaged further for stroke assessment. Call to patient for further triage. Left detailed VM to call provider regional business manager via answering servicefor further triage. Advised DH ED or call 911 if sudden partial or total vision loss, change in speech, weakness, facial droop, confusion, dizziness. ED for severe eye pain. Will send myDH message as well. documented in this encounter Plan of Treatment Not on file documented as of this encounter Visit Diagnoses Not on filedocumented in this encounter Care Teams Joint Cleaning Machine Operator Relationship Specialty Start Date End Date Hoang Castellanos, DIRECTOR PAID MEDIA [address] [place] [address] PCP - General Family Medicine 03/12/20 documented as of this encounter
--- OUTSIDE RECORDS SUMMARY | 2024-08-15 13:33 | XMS_ITS | Encounter Summary ---
Author Organization [facility] [place] [address] Care Team Providers Care Steel Turner Name Role Phone Hoang Castellanos APRN Primary Care Provider [phone] Reason for Visit * Reason Comments Medication Refill Encounter Details Date Type Department Care Team (Late st Contact Info) Description 10/27/2020 Refill Primary Care at [facility] 10 [place] [phone] Hoang Castellanos APRN 10 [facility] [place] [address] Chronic obstructive pulmonary disease, unspecified COPD type [...] Last Appt: 10/10/2020 Future Appt: 11/10/2020 Pharmacy: [facility] Last rx: 05/21/2019: 1 inhaler,, 11 refills [...] type documented in this encounter Care Teams Steel Turner Relationship Specialty Start Date End Date Hoang Castellanos, TORCH BRAZER [address] [place] [address] PCP - General Family Medicine 03/12/20 documented as of this encounter
--- OUTSIDE RECORDS SUMMARY | 2024-08-15 13:33 | XMS_ITS | Encounter Summary ---
[place] [address] Care Team Providers Care School Business Manager Name Role Phone Hoang Castellanos APRN Primary Care Provider Encounter Details Date Type Department Care Team (Late st Contact Info) Description 07/09/2020 Telephone Primary Care at [facility] 10 [place] [phone] Isadora Hidalgo LPN Social History Tobacco Use [...] on filedocumented in this encounter Care Teams School Business Manager Relationship Specialty Start Date End Date Hoang Castellanos, MICROMATIC HONE OPERATOR [address] [place] [address] PCP - General Family Medicine 03/12/20 documented as of this encounter
--- OUTSIDE RECORDS SUMMARY | 2024-08-15 13:33 | XMS_ITS | Encounter Summary ---
[place] [address] Care Team Providers Care Excel Expert Name Role Phone Hoang Castellanos APRN Primary Care Provider Encounter Details Date Type Department Care Team (Late st Contact Info) Description 09/16/2020 Telephone Primary Care at [facility] 10 [place] [phone] Shannon Cruz RN Social History Tobacco Use [...] on filedocumented in this encounter Care Teams Excel Expert Relationship Specialty Start Date End Date Hoang Castellanos, SAM [address] [place] [address] PCP - General Family Medicine 03/12/20 documented as of this encounter
--- OUTSIDE RECORDS SUMMARY | 2024-08-15 13:33 | XMS_ITS | Encounter Summary ---
Author Organization [place] [address] Care Team Providers Care Gaming Cage Worker Name Role Phone Hoang Castellanos APRN Primary Care Provider Reason for Visit * Reason Onset Date Comments Medication Refill 07/16/2020 Encounter Details Date Type Department Care Team (Late st Contact Info) Description 07/16/2020 Refill Primary Care at [facility] 10 [facility] [place] [phone] Isadora Hidalgo LPN Social History Tobacco Use [...] on filedocumented in this encounter Care Teams Gaming Cage Worker Relationship Specialty Start Date End Date Hoang Castellanos, SAM [address] [place] [place] [address] PCP - General Family Medicine 03/12/20 documented as of this encounter
--- OUTSIDE RECORDS SUMMARY | 2024-08-15 13:33 | XMS_ITS | Encounter Summary ---
Author Organization [facility] [place] [address] Care Team Providers Care Motorized Squad Commanding Officer Name Role Phone Hoang Castellanos APRN Primary Care Provider Reason for Referral * Diagnostic Test (Routine) - Closed Specialty Diagnoses / Procedures Referred By Contac t Referred To Contact Radiology Diagnoses Dizziness Procedures MRI Brain wwo Contrast (Generic) Hoang Castellanos APRN [address] [place] [address] [facility] 10 [place] [address] Referral ID Status Reason Start Date Expiration Date V isits Requested Visits Authorized [id number] Closed Specialty Service Requested 07/14/2020 01/12/2022 1 1 Reason for Visit * Diagnostic Test (Routine) - Closed Specialty Diagnoses / Procedures Referred By Contac t Referred To Contact Radiology Diagnoses Dizziness Procedures MRI Brain wwo Contrast (Generic) Hoang Castellanos APRN [address] [place] [address] [facility] 10 [place] [address] Referral ID Status Reason Start Date Expiration Date V isits Requested Visits Authorized [id number] Closed Specialty Service Requested 07/14/2020 01/12/2022 1 1 Encounter Details Date Type Department Care Team (Latest Contact Info) Description 09/16/2020 12:12 PM EST - 09/16/2020 11:59 PM EST Hospital Encounter Radiology MRI at [facility] [address] [place] [address] Hoang Castellanos, CONSULTANT LUXURY AND AUTO. VICE PRESIDENT [employer] (EX ) [address] [place] [address] Dizziness Discharge Disposition: Home Social History Tobacco [...] 1 06/02/2020 12/01/2021 ibuprofen (Advil;Motrin) 800 mg TabletIndications:Tool Sharpener randell right-sided low back pain without sciatica [...] mLs documented in this encounter Care Teams Motorized Squad Commanding Officer Relationship Specialty Start Date End Date Hoang Castellanos, CONSULTANT LUXURY AND AUTO. VICE PRESIDENT [employer] (EX ) [address] [place] [address] PCP - General Family Medicine 03/12/20 documented as of this encounter
--- OUTSIDE RECORDS SUMMARY | 2024-08-15 13:33 | XMS_ITS | Encounter Summary ---
Author Organization [facility] [place] [address] Care Team Providers Care Mailing Jogger Name Role Phone Hoang Castellanos APRN Primary Care Provider Encounter Details Date Type Department Care Team (Late st Contact Info) Description 10/07/2020 Telephone Primary Care at [facility] 10 [place] [phone] Shannon Cruz, RN Social History Tobacco Use [...] on filedocumented in this encounter Care Teams Mailing Jogger Relationship Specialty Start Date End Date Hoang Castellanos APRN [address] [place] [address] PCP - General Family Medicine 03/12/20 documented as of this encounter
--- OUTSIDE RECORDS SUMMARY | 2024-08-15 13:33 | XMS_ITS | Encounter Summary ---
[place] [address] Care Team Providers Care Laundry Agent Name Role Phone Hoang Castellanos APRN Primary Care Provider Encounter Details Date Type Department Care Team (Late st Contact Info) Description 08/28/2020 Telephone Primary Care at [facility] 10 [place] [phone] Shannon Chung, RN Social History Tobacco Use [...] 3:21 PM EST CROW Alatorre called from [facility] in regards to Jeannie Renny Rico. Update: visiting nurses called in vitals. 08/28/20: BP 156/88, HR 55 08/22/20: BP 164/93 BP Readings from Last 3 Encounters: 07/14/20 150/80 07/03/20 139/65 04/03/20 125/69 documented in this encounter Plan of Treatment Not on file documented as of this encounter Visit Diagnoses Diagnosis Benign essential hypertension Essential hypertension, benign documented in this encounter Care Teams Laundry Agent Relationship Specialty Start Date End Date Hoang Castellanos APRN [address] [place] [address] PCP - General Family Medicine 03/12/20 documented as of this encounter
--- OUTSIDE RECORDS SUMMARY | 2024-08-15 13:33 | XMS_ITS | Encounter Summary ---
Author Organization [facility] [place] [address] Care Team Providers Care Media Consultant Name Role Phone Hoang Castellanos APRN Primary Care Provider [phone] Reason for Visit * Reason Comments Medication Refill Encounter Details Date Type Department Care Team (Late st Contact Info) Description 10/27/2020 Refill Primary Care at [facility] 10 [facility] [place] [phone] Hoang Castellanos APRN [address] [facility] [place] [address] Social History Tobacco Use Types Packs/Day Years [...] filedocumented in this encounter Care Teams Media Consultant Relationship Specialty Start Date End Date Hoang Castellanos APRN [address] [place] [address] PCP - General Family Medicine 03/12/20 documented as of this encounter
--- OUTSIDE RECORDS SUMMARY | 2024-08-15 13:34 | XMS_ITS | Encounter Summary ---
Author Organization [facility] [place] [address] Care Team Providers Care Plant Care Worker Name Role Phone Hoang Castellanos APRN Primary Care Provider [phone] Encounter Details Date Type Department Care Team (Late st Contact Info) Description 04/22/2020 Orders Only Orthopaedics at [facility] 10 [place] [address] Talita Hernandez MD [address] [facility] [address] [place] [address] Closed fracture of distal end of right [...] signed by: Odell Monsalve MD, [facility] ([phone]), at 05/01/2020 11:13 AM Narrative 05/01/2020 11:13 [...] documented in this encounter Care Teams Plant Care Worker Relationship Specialty Start Date End Date Hoang Castellanos, RESIDENTIAL AIDE [address] [place] [address] PCP - General Family Medicine 03/12/20 documented as of this encounter
--- OUTSIDE RECORDS SUMMARY | 2024-08-15 13:34 | XMS_ITS | Encounter Summary ---
[place] [address] Care Team Providers Care Metal Mold Dresser Name Role Phone Hoang Castellanos APRN Primary Care Provider [phone] Reason for Visit * Reason Onset Date Comments Fall 07/03/2020 Ankle Injury 07/03/2020 Encounter Details Date Type Department Care Team (Late st Contact Info) Description 07/03/2020 Telephone Primary Care at [facility] [place] [phone] Minerva Calderón RN Fall; Ankle Injury Social [...] report Jeannie fell at [facility] home in [place] last night, injured ankle, unable to bear weight. They would like to avoid calling 911 but need ambulance transport to get Jeannie to ED. They called her [facility] case advocate who advised to call PCP office. Advised [...] Date End Date Hoang Castellanos, PROFESSOR OF BIOSTATISTICS [address] [place] [address] PCP - General Family Medicine 03/12/20 documented as of this encounter
--- OUTSIDE RECORDS SUMMARY | 2024-08-15 13:34 | XMS_ITS | Encounter Summary ---
[place] [address] Care Team Providers Care Control Analyst Name Role Phone Hoang Castellanos APRN Primary Care Provider Reason for Visit * Reason Onset Date Comments Appointment 05/07/2020 Encounter Details Date Type Department Care Team (Late st Contact Info) Description 05/07/2020 [place] [phone] Caridad Moon Appointment Social History Tobacco Use [...] 05/07/2020 9:10 AM EDT Call Center / Loss Prevention Leader Message - General Issue Call Provider patient sees in Clinic: none, new patient Caller and relationship (if other than patient-full name): self Call back number: [phone] Ok to leave a message: yes Reason for call: Patient is calling to reschedule the new patient appointment with Dr Michael Rosas.Patient is requesting a call back to see if this appointment can be a TOV. Please call patient to discuss further. Disposition of Call (choose one and remove others): ??? Routine message sent to Cashiers: yes documented in this encounter Plan of Treatment Not on file documented as of this encounter Visit Diagnoses Not on filedocumented in this encounter Care Teams Control Analyst Relationship Specialty Start Date End Date Hoang Castellanos, CHIEF OF PEDIATRIC UROLOGY [address] [place] [address] PCP - General Family Medicine 03/12/20 documented as of this encounter
--- OUTSIDE RECORDS SUMMARY | 2024-08-15 13:34 | XMS_ITS | Encounter Summary ---
[place] [address] Care Team Providers Care Electronic Communications Technician Name Role Phone Hoang Castellanos APRN Primary Care Provider Reason for Visit * Reason Onset Date Comments Medication Refill 05/30/2020 Medication Refill 06/03/2020 Encounter Details Date Type Department Care Team (Late st Contact Info) Description 05/30/2020 Refill Primary Care at [facility] [place] [phone] Isadora Hidalgo LPN Social History Tobacco Use [...] filedocumented in this encounter Care Teams Electronic Communications Technician Relationship Specialty Start Date End Date Hoang Castellanos APRN [address] [place] [address] PCP - General Family Medicine 03/12/20 documented as of this encounter
--- OUTSIDE RECORDS SUMMARY | 2024-08-15 13:34 | XMS_ITS | Encounter Summary ---
[place] [address] Care Team Providers Care Cnc Maintenance Mechanic Name Role Phone Hoang Castellanos APRN Primary Care Provider Encounter Details Date Type Department Care Team (Late st Contact Info) Description 02/27/2020 Telephone Primary Care at [facility] 10 [place] [phone] Isadora Hidalgo LPN Social History Tobacco Use [...] on the with RA to call Sherri [phone], Jeannie dobson to be part of the appointment documented in this encounter Plan of Treatment Not on file documented as of this encounter Visit Diagnoses Not on filedocumented in this encounter Care Teams Cnc Maintenance Mechanic Relationship Specialty Start Date End Date Hoang Castellanos, SAM [address] [place] [address] PCP - General Family Medicine 12/07/19 03/11/20 documented as of this encounter
--- OUTSIDE RECORDS SUMMARY | 2024-08-15 13:34 | XMS_ITS | Encounter Summary ---
[place] [address] Care Team Providers Care Picker Name Role Phone Hoang Castellanos APRN Primary Care Provider Encounter Details Date Type Department Care Team (Late st Contact Info) Description 04/03/2020 Telephone Primary Care at [facility] [place] [phone] Isadora Hidalgo LPN Social History Tobacco Use [...] the test results. If you have a [employer] account, you can see your results as [...] your hands with an alcohol- based hand ncaa compliance internship that contains at least 60% alcohol, covering [...] provided on the website below by the [place] Department of Health and Human services regarding self quarantine. If you reside in a state other than [place], please review your state's specific self-quarantine instructions. https://www.[facility].ca.gov/dphs/cdcs/documents/xamm-hgvxrjimmn-otire.pdf * Telephone Encounter - Isadora Hidalgo LPN [...] documented as of this encounter Care Teams Picker Relationship Specialty Start Date End Date Hoang Castellanos APRN [address] [place] [address] PCP - General Family Medicine 03/12/20 documented as of this encounter
--- OUTSIDE RECORDS SUMMARY | 2024-08-15 13:34 | XMS_ITS | Encounter Summary ---
Author Organization [facility] [place] [address] Care Team Providers Care Body Work Auto Trimmer Name Role Phone Hoang Castellanos APRN Primary Care Provider [phone] Encounter Details Date Type Department Care Team (Late st Contact Info) Description 03/12/2020 1:00 PM EDT Office Visit Physical Therapy at [address] [phone] Karl Spring, PT Low back pain, non-specific [...] primary care and Orth opaedics over at [facility]. She states the back has gradually improved [...] most recent radiology report only, please see [facility] for full report and imaging [...] non-specific documented in this encounter Care Teams Body Work Auto Trimmer Relationship Specialty Start Date End Date Hoang Castellanos, BLEACH CHLORINATOR [address] [place] [address] PCP - General Family Medicine 03/12/20 documented as of this encounter
--- OUTSIDE RECORDS SUMMARY | 2024-08-15 13:34 | XMS_ITS | Encounter Summary ---
Author Organization [facility] [address] Care Team Providers Care Cut Filer Name Role Phone Hoang Castellanos APRN Primary Care Provider Reason for Visit * Reason Onset Date Comments Medication Refill 04/15/2020 Encounter Details Date Type Department Care Team (Late st Contact Info) Description 04/15/2020 Refill Primary Care at [facility] 10 [facility] [place] [phone] Isadora Hidalgo LPN B12 deficiency Social History [...] deficiencies documented in this encounter Care Teams Cut Filer Relationship Specialty Start Date End Date Hoang Castellanos, MECHANICAL RESEARCH ENGINEER [address] [place] [address] PCP - General Family Medicine 03/12/20 documented as of this encounter
--- OUTSIDE RECORDS SUMMARY | 2024-08-15 13:34 | XMS_ITS | Encounter Summary ---
Author Organization [facility] [place] [address] Care Team Providers Care Staff Counsel Name Role Phone Hoang Castellanos APRN Primary Care Provider Encounter Details Date Type Department Care Team (Late st Contact Info) Description 03/26/2020 3:00 PM EDT Office Visit Physical Therapy at [address] [phone] Keely Childers PTA Low back pain, non-specific [...] her pain symptoms today. O: Therex: Strength/Endurance/ROM (02113) 45 min ?? ITB foam roller STM [...] non-specific documented in this encounter Care Teams Staff Counsel Relationship Specialty Start Date End Date Hoang Castellanos, PROPELLER INSPECTOR [address] [place] [address] PCP - General Family Medicine 03/12/20 documented as of this encounter
--- OUTSIDE RECORDS SUMMARY | 2024-08-15 13:34 | XMS_ITS | Encounter Summary ---
Author Organization [facility] [place] [address] Care Team Providers Care Agency Legal Counsel Name Role Phone Hoang Castellanos APRN Primary Care Provider Reason for Visit * Reason Comments URI Encounter Details Date Type Department Care Team (Late st Contact Info) Description 04/03/2020 11:30 AM EDT Office Visit Primary Care at [facility] 10 [place] [phone] Karl Rowe MD 10 [place] [address] Suspected COVID-19 virus infection; Chronic obstructive pulmonary [...] the [facility] URI This is a [...] to rapid Await results prior to leaving [facility] campus as patient uses Public transportation There are no Patient Instructions on file for this visit. FOLLOWUP: No follow-ups on file. documented in this encounter Plan of Treatment Not on file documented as of this encounter Procedures Procedure Name Priority Date/Time Associated Diagnosis Comments RAPID COVID-19 PCR ([facility]) Routine 04/03/2020 11:19 AM EDT documented in [...] using the Simplexa COVID-19 Direct Assay by [employer] as authorized by the FDA issued Emergency [...] of Pathology and Laboratory Medicine at [facility], certified under the Clinical Laboratory [...] Information for Healthcare Professionals (https://www.cdc.gov/coronavirus/2019-ncov/hcp/index.html). SARS-CoV-2 Source FILTER TANK TENDER Swab [facility] Nasopharyngeal swab (specimen) Other / Unknown 04/03/2020 11:19 AM EDT 04/03/2020 12:42 PM EDT Comment:Symptoms->Fever / Re spiratory Symptoms Narrative Resulting Agency Comment Spec In Lab / APD Hoang Castellanos APRN MICROBIOLOGY - GENER AL ORDERABLES [facility] [place] [address] documented in this encounter Visit Diagnoses Diagnosis Suspected COVID-19 virus infection Chronic obstructive pulmonary disease, unspecified COPD type documented in this encounter Care Teams Agency Legal Counsel Relationship Specialty Start Date End Date Hoang Castellanos APRN [address] [place] [address] PCP - General Family Medicine 03/12/20 documented as of this encounter
--- OUTSIDE RECORDS SUMMARY | 2024-08-15 13:34 | XMS_ITS | Encounter Summary ---
[place] [address] Care Team Providers Care Historical Site Guide Name Role Phone Hoang Castellanos APRN Primary Care Provider [phone] Encounter Details Date Type Department Care Team (Latest Contact Info) Description 02/05/2020 12:55 PM EDT Ancillary Procedure Radiology XRay at the [facility] at [facility] 10 [place] [phone] Hoang Castellanos APRN 10 [facility] [place] [address] Closed fracture of distal end of right [...] below. ? Electronically signed by: Flory Bedoya [facility] ([phone]), at 02/05/2020 1:43 PM Narrative 02/05/2020 1:43 [...] number below. Electronically signed by: Flory Bedoya [facility]([phone]), at 02/05/2020 1:43 PM Hoang Castellanos APRN IMG DX ORDERABLES documented in this encounter Visit Diagnoses Diagnosis Closed fracture of distal end of right radius, unspecified fracture morphology, initial encounter documented in this encounter Care Teams Historical Site Guide Relationship Specialty Start Date End Date Hoang Castellanos APRN [address] [place] [address] PCP - General Family Medicine 12/07/19 03/11/20 documented as of this encounter
--- OUTSIDE RECORDS SUMMARY | 2024-08-15 13:34 | XMS_ITS | Encounter Summary ---
Author Organization [facility] [place] [address] Care Team Providers Care Contract Accountant Name Role Phone Hoang Castellanos APRN Primary Care Provider Encounter Details Date Type Department Care Team (Late st Contact Info) Description 04/03/2020 Telephone Primary Care at [facility] [place] [phone] Jeannie Luciano, RN Social History Tobacco Use [...] 04/03/2020 9:41 AM EDT Pt arrived at [facility] and screened positive for COVID like symptoms; [...] of or healthcare workers at group homes/shelters, fci facilities or paper sorter and counter care facilities (LTCFs); and all first responders. [] For patients with an [facility] primary care provider (PCP), we perform asymptomatic screening requiredfor school, work, or travel. 3. PATIENT REQUEST [] Patient does not meet above criteria but is requesting testing. All patients requesting testing will need to be referred below to [facility] prior to scheduling. PLAN [] Patient scheduled for an appointment with provider [] OV []TH [] Patient declined provider appointment [] Patient referred to [facility] for testing (send signed note to [facility]) [] Triage note sent to provider for input Patient instructions: documented in this encounter Plan of Treatment Not on file documented as of this encounter Visit Diagnoses Diagnosis Suspected COVID-19 virus infection documented in this encounter Care Teams Contract Accountant Relationship Specialty Start Date End Date Hoang Castellanos APRN [address] [place] [address] PCP - General Family Medicine 03/12/20 documented as of this encounter
--- OUTSIDE RECORDS SUMMARY | 2024-08-15 13:34 | XMS_ITS | Encounter Summary ---
Author Organization [place] [address] Care Team Providers Care Middle School Art Teacher Name Role Phone Hoang Castellanos APRN Primary Care Provider Encounter Details Date Type Department Care Team (Latest Contact Info) Description 01/18/2020 12:45 PM EDT Laboratory Appointment Laboratory at [facility] [place] [phone] Obesity, unspecified classification, unspecified obesity type, unspecified [...] EDT) Prealbumin 18(L) 20 - 40 mg/dL [facility] Comment: Prealbumin levels are generally lower in the pediatric population; adult concentrations are usually attained near puberty. Blood specimen (specimen) 01/18/2020 12:56 PM EDT 01/18/2020 4:52 PM EDT Narrative Resulting Agency Comment Spec In Lab / APD Priya Charles APRN CHEMISTRY ORDERA BLES [facility] [place] [address] * (ABNORMAL) Ferritin (01/18/2020 12:56 PM EDT) Ferritin 16(L) 30 - 400 ng/mL [facility] Comment: Pediatric reference ranges not verified at [facility], interpret with caution. Reference ranges for females greater than 50 years of age approach values for men, i.e., 30-400 ng/mL. Blood specimen (specimen) 01/18/2020 12:56 PM EDT 01/18/2020 1:45 PM EDT Narrative Resulting Agency Comment Spec In Lab / APD Priya Charles SAM CHEMISTRY ORDERA BLES Performing Organization Address [facility]/ZIP Co de Phone Number [facility] [address] [place] [address] * (ABNORMAL) Iron and TIBC (01/18/2020 12:56 PM EDT) Iron 44 30 - 150 mcg/dL [facility] TIBC 397 250 - 450 mcg/dL [facility] Iron Saturation 11(L) 20 - 50 % [facility] Blood specimen (specimen) 01/18/2020 12:56 PM EDT 01/18/2020 1:45 PM EDT Narrative Resulting Agency Comment Spec In Lab / APD Priya Charles CLIENT EXECUTIVE CHEMISTRY ORDERA BLES Performing Organization Address [facility] Co de Phone Number [facility] [address] [facility] [place] [address] * PTH (01/18/2020 12:56 PM EDT) Parathyroid Hormone 54 15 - 65 pg/mL [facility] Blood specimen (specimen) 01/18/2020 12:56 PM EDT 01/18/2020 4:52 PM EDT Narrative Resulting Agency Comment Spec In Lab / APD Priya Vivi Ellamore SAM CHEMISTRY ORDERA BLES Performing Organization Address City/[facility]/ZIP Co de Phone Number [facility] [place] [address] * Vitamin D, 25-Hydroxy (01/18/2020 12:56 PM EDT) Vitamin D Total 25 OH 38 21 - 100 ng/mL [facility] Comment: Please note, effective November 28, 2019, additional result field for Vitamin D Interpretation, and updated flagging notification. Vit D Interp Sufficient [facility] Blood specimen (specimen) 01/18/2020 12:56 PM EDT 01/18/2020 4:52 PM EDT Narrative Resulting Agency Comment Spec In Lab / APD Priya Charles CLIENT EXECUTIVE CHEMISTRY ORDERA BLES 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
--- OUTSIDE RECORDS SUMMARY | 2024-08-15 13:34 | XMS_ITS | Encounter Summary ---
Author Organization [facility]ly [facility], 1928–[address] [place] [address] Care Team Providers Care Sugar Cane Planting Equipment Operator Name Role Phone Hoang Castellanos APRN Primary Care Provider Reason for Visit * Reason Onset Date Comments Medication Refill 03/12/2020 Encounter Details Date Type Department Care Team (Late st Contact Info) Description 03/12/2020 Refill Primary Care at [facility] [address] [place] [phone] Hoang Castellanos APRN [address] [place] [address] Dizziness; Chronic right-sided low back pain without [...] Hidalgo LPN - 03/12/2020 11:25 AM EDT [facility] ortho call they need patient's HT, WT, and different diagnosis.new Rx send with all information documented in this encounter Plan of Treatment Not on file documented as of this encounter Visit Diagnoses Diagnosis Dizziness Dizziness and giddiness Chronic right-sided low back pain without sciatica documented in this encounter Care Teams Sugar Cane Planting Equipment Operator Relationship Specialty Start Date End Date Hoang Castellanos APRN [address] [place] [address] PCP - General Family Medicine 03/12/20 documented as of this encounter
--- OUTSIDE RECORDS SUMMARY | 2024-08-15 13:34 | XMS_ITS | Encounter Summary ---
[place] [address] Care Team Providers Care Multi Disciplined Language Analyst Name Role Phone Hoang Castellanos APRN Primary Care Provider Encounter Details Date Type Department Care Team (Late st Contact Info) Description 02/26/2020 Telephone Primary Care at [facility] 10 [place] [phone] Devi Mccormick RN Social History Tobacco Use [...] on filedocumented in this encounter Care Teams Multi Disciplined Language Analyst Relationship Specialty Start Date End Date Hoang Castellanos APRN [address] [place] [address] PCP - General Family Medicine 12/07/19 03/11/20 documented as of this encounter
--- OUTSIDE RECORDS SUMMARY | 2024-08-15 13:34 | XMS_ITS | Encounter Summary ---
Author Organization [facility] [place] [address] Care Team Providers Care Quality Cloth Tester Name Role Phone Hoang Castellanos APRN Primary Care Provider Encounter Details Date Type Department Care Team (Late st Contact Info) Description 03/08/2020 Telephone Primary Care at [facility] [address] [facility] [place] [phone] Hoang Castellanos APRN [address] [place] [address] Social History Tobacco Use Types Packs/Day Years [...] able to route a message to the [id number] pool to coordinate and authorize testing. * Telephone Encounter - Hoang Castellanos APRN - 03/08/2020 8:07 AM EDT call or contact centre coach note: Pt with hx of chronic bronchitis, [...] on filedocumented in this encounter Care Teams Quality Cloth Tester Relationship Specialty Start Date End Date Hoang Castellanos APRN [address] [place] [address] PCP - General Family Medicine 12/07/19 03/11/20 documented as of this encounter
--- OUTSIDE RECORDS SUMMARY | 2024-08-15 13:34 | XMS_ITS | Encounter Summary ---
Author Organization [facility] Address [facility] [place] [address] Care Team Providers Care Hotel Service Manager Name Role Phone Hoang Castellanos APRN Primary Care Provider Reason for Visit * Reason Comments Establish Care Right distal radius and ulnar styloid fracture 02/04/20 * Consultation (Routine) - Specialty Diagnoses / Procedures Referred By Vanita dimas Referred To Contact Orthopaedics Diagnoses Closed fracture of distal end of right radius, unspecified fracture morphology, initial encounter Hoang Castellanos APRN 10 [facility] [place] [address] [facility]ics 10 [place] [address] Referral ID Status Reason Start Date Expiration Date Visits Requested Visits Authorized [id number] Specialty Service Requested 02/05/2020 02/04/2021 6 6 Encounter Details Date Type Department Care Team (Late st Contact Info) Description 02/06/2020 10:00 AM EDT Office Visit Orthopaedics at [facility] 10 [place] [address] Talita Hernandez MD 10 [facility] [place] [address] Other closed intra-articular fracture of [...] G89.29 ??? Lumbago M54.5 ??? Atherosclerosis of comanche coronary artery of comanche heart without angina pectoris I25.10 ??? Smokes [...] at [facility] END[facility]COPY Family History Problem (# [...] (H) 01/01/2020 Lab Results Component Value Date [id number] 02/07/2019 Lab Results Component Value Date [...] G89.29 ??? Lumbago M54.5 ??? Atherosclerosis of comanche coronary artery of comanche heart without angina pectoris I25.10 ??? Smokes [...] at [facility] ENDOSCOPY Family History Problem (# [...] encounter documented in this encounter Care Teams Hotel Service Manager Relationship Specialty Start Date End Date Hoang Castellanos, SAM [address] [place] [address] PCP - General Family Medicine 12/07/19 03/11/20 documented as of this encounter
--- OUTSIDE RECORDS SUMMARY | 2024-08-15 13:34 | XMS_ITS | Encounter Summary ---
Author Organization [facility] [place] [address] Care Team Providers Care Roof Cement And Paint Maker Name Role Phone Hoang Castellanos APRN Primary Care Provider Reason for Visit * Reason Onset Date Comments Medication Refill 05/09/2020 Encounter Details Date Type Department Care Team (Late st Contact Info) Description 05/09/2020 Refill Primary Care at [facility] [place] [phone] Isadora Hidalgo LPN Social History Tobacco Use [...] Care Teams Roof Cement And Paint Maker Relationship Specialty Start Date End Date Hoang Castellanos APRN [address] [place] [address] PCP - General Family Medicine 03/12/20 documented as of this encounter
--- OUTSIDE RECORDS SUMMARY | 2024-08-15 13:34 | XMS_ITS | Encounter Summary ---
Author Organization [facility] [place] [address] Care Team Providers Care Machine Binder Stripper Name Role Phone Hoang Castellanos APRN Primary Care Provider [phone] Reason for Referral * Consultation (Routine) - Closed Specialty Diagnoses / Procedures Referred By Contac t Referred To Contact Neurology Diagnoses Dizziness Hoang Castellanos APRN [address] [place] [address] [facility] [address] [place] [phone] Referral ID Status Reason Start Date Expiration Date V isits Requested Visits Authorized [id number] Closed Specialty Service Requested 03/04/2020 03/04/2021 6 6 * Physical Therapy (Routine) - Closed Specialty Diagnoses / Procedures Referred By Contac t Referred To Contact Physical Therapy Diagnoses Chronic right-sided low back pain without sciatica Hoang Castellanos APRN [address] [place] [address] [facility] [address] [place] [address] Referral ID Status Reason Start Date Expiration Date V isits Requested Visits Authorized [id number] Closed Evaluate and Treat 03/04/2020 03/04/2021 12 12 Reason for Visit * Reason Comments Hypertension Back Pain Dizziness Encounter Details Date Type Department Care Team (Late st Contact Info) Description 03/04/2020 11:00 AM EDT [facility] [place] [address] Hoang Castellanos, DRUM BUILDER [address] [place] [address] Dizziness; Chronic right-sided low back pain without [...] a 59 y.o. female presenting to the [facility] Primary Care Clinic HPI HYPERTENSION: She [...] visit: Dizziness - [facility]; 1 walker on wheels with seat Chronic right-sided low back pain without sciatica - ibuprofen (Advil;Motrin) 800 mg Tablet; Take 1 tablet by mouth every 8 hours as needed for Pain. - [facility]; 1 walker on wheels with seat Healthcare maintenance - Shingrix Zoster Vaccine, IM Type 2 diabetes mellitus without complication, without long-term current use of insulin - CMP w/fasting Glucose; Future - Hemoglobin A1c; Future Will send Rx for walker with a seat to [facility] Referral back to Neurology for f/u [...] insulin documented in this encounter Care Teams Machine Binder Stripper Relationship Specialty Start Date End Date Hoang Castellanos APRN [address] [place] [address] PCP - General Family Medicine 12/07/19 03/11/20 documented as of this encounter
--- OUTSIDE RECORDS SUMMARY | 2024-08-15 13:34 | XMS_ITS | Encounter Summary ---
Author Organization [place] [address] Care Team Providers Care Director Of Cath Lab Name Role Phone Hoang Castellanos APRN Primary Care Provider Reason for Visit * Reason Onset Date Comments Medication Refill 03/21/2020 Encounter Details Date Type Department Care Team (Late st Contact Info) Description 03/21/2020 Refill Primary Care at [facility] [address] [facility] [place] [phone] Isadora Hidalgo LPN Social History Tobacco Use [...] SAM [address] [place] [address] PCP - General Family Medicine 03/12/20 documented as of this encounter
--- OUTSIDE RECORDS SUMMARY | 2024-08-15 13:34 | XMS_ITS | Encounter Summary ---
Author Organization [facility] [place] [address] Care Team Providers Care Net Front End Developer Name Role Phone Hoang Castellanos APRN Primary Care Provider Reason for Visit * Reason Comments Medication Refill Encounter Details Date Type Department Care Team (Late st Contact Info) Description 01/21/2020 Refill Primary Care at [facility] 10 [place] [phone] Yisel Marroquin MD Social History Tobacco Use [...] filedocumented in this encounter Care Teams Net Front End Developer Relationship Specialty Start Date End Date Hoang Castellanos, BED LABORER [address] [place] [address] PCP - General Family Medicine 12/07/19 03/11/20 documented as of this encounter
--- OUTSIDE RECORDS SUMMARY | 2024-08-15 13:34 | XMS_ITS | Encounter Summary ---
Author Organization [facility] [place] [address] Care Team Providers Care Tab Builder Name Role Phone Hoang Castellanos APRN Primary Care Provider Reason for Visit * Reason Onset Date Comments Medication Refill 03/12/2020 Encounter Details Date Type Department Care Team (Late st Contact Info) Description 03/12/2020 Refill Primary Care at [facility] 10 [facility] [place] [phone] Isadora Hidalgo LPN Dizziness; Chronic right-sided low [...] to send the Rx for walker to [facility] ortho fax # [phone], this way patient doesn't have to pay out of pocket. Rx printed and faxed to [facility] ortho documented in this encounter Plan of Treatment Not on file documented as of this encounter Visit Diagnoses Diagnosis Dizziness Dizziness and giddiness Chronic right-sided low back pain without sciatica documented in this encounter Care Teams Tab Builder Relationship Specialty Start Date End Date Hoang Castellanos APRN [address] [place] [address] PCP - General Family Medicine 03/12/20 documented as of this encounter
--- OUTSIDE RECORDS SUMMARY | 2024-08-15 13:34 | XMS_ITS | Encounter Summary ---
Author Organization [facility] [place] [address] Care Team Providers Care Auto Claims Adjuster Name Role Phone Hoang Castellanos APRN Primary Care Provider Reason for Visit * Reason Comments Follow-up Right intra-articula r distal radius fracture 02/04/20 Encounter Details Date Type Department Care Team (Late st Contact Info) Description 03/19/2020 10:45 AM EDT Office Visit Orthopaedics at [facility] 10 [place] [address] Talita Hernandez MD [address] [facility] [facility] [place] [address] Closed fracture of distal end of right [...] ? Electronically signed by: Bandar Tejeda MD, [facility] ([phone]), at 04/07/2020 8:21 AM Narrative 04/07/2020 8:21 [...] below. Electronically signed by: Bandar Tejeda MD, [facility]([phone]), at 04/07/2020 8:21 AM Talita Hernandez MD IMG DX ORDERABLES documented in this encounter Visit Diagnoses Diagnosis Closed fracture of distal end of right radius, unspecified fracture morphology, sequela Closed fracture of distal end of right radius, unspecified fracture morphology, sequela documented in this encounter Care Teams Auto Claims Adjuster Relationship Specialty Start Date End Date Hoang Castellanos, SAM [address] [place] [address] PCP - General Family Medicine 03/12/20 documented as of this encounter
--- OUTSIDE RECORDS SUMMARY | 2024-08-15 13:34 | XMS_ITS | Encounter Summary ---
Author Organization [facility] [place] [address] Care Team Providers Care Radiagraph Operator Name Role Phone Hoang Castellanos APRN Primary Care Provider Encounter Details Date Type Department Care Team (Late st Contact Info) Description 04/03/2020 - 04/03/2020 1:17 PM EDT Emergency Emergency Services at [address] [phone] Discharge Disposition: Home Social History [...] 2 times daily. ibuprofen (Advil;Motrin) 800 mg TabletIndications:Professor Of Geography randell right-sided low back pain without sciatica [...] documented as of this encounter Care Teams Radiagraph Operator Relationship Specialty Start Date End Date Hoang Castellanos, SAM [address] [place] [address] PCP - General Family Medicine 03/12/20 documented as of this encounter
--- OUTSIDE RECORDS SUMMARY | 2024-08-15 13:34 | XMS_ITS | Encounter Summary ---
Author Organization [facility] [place] [address] Care Team Providers Care Mint Wafer Depositor Name Role Phone Hoang Castellanos APRN Primary Care Provider Reason for Referral * Occupational Therapy (Routine) - Closed Specialty Diagnoses / Procedures Referred By Vanita t Referred To Contact Occupational Therapy Diagnoses Closed fracture of distal end of right radius, unspecified fracture morphology, sequela Talita Hernandez MD [address] [place] [address] [facility] [address] [place] [address] Referral ID Status Reason Start Date Expiration Date V isits Requested Visits Authorized [id number] Closed Evaluate and Treat 05/01/2020 05/01/2021 12 12 Reason for Visit * Reason Comments Follow-up Right wrist intra-ar ticular distal radius fracture 02/04/20 Encounter Details Date Type Department Care Team (Late st Contact Info) Description 05/01/2020 11:30 AM EDT Office Visit Orthopaedics at [facility] [address] [place] [phone] Talita Hernandez MD [address] [place] [address] Closed fracture of distal end of right [...] sequela documented in this encounter Care Teams Mint Wafer Depositor Relationship Specialty Start Date End Date Hoang Castellanos, SAM [address] [place] [address] PCP - General Family Medicine 03/12/20 documented as of this encounter
--- OUTSIDE RECORDS SUMMARY | 2024-08-15 13:34 | XMS_ITS | Encounter Summary ---
Author Organization [facility] [place] [address] Care Team Providers Care Double End Tenoner Operator Name Role Phone Hoang Castellanos APRN Primary Care Provider Reason for Visit * Reason Comments Follow Up Fracture RIGHT distal radius fx 02/04/20 Encounter Details Date Type Department Care Team (Late st Contact Info) Description 04/11/2020 8:30 AM EDT Office Visit Orthopaedics at [facility] [place] [address] Closed fracture of distal end of right [...] 90 tablet 3 ??? Miscellaneous Medical Supply [facility] 1 walker on wheels with seat 1 [...] sequela documented in this encounter Care Teams Double End Tenoner Operator Relationship Specialty Start Date End Date Hoang Castellanos, BUSINESS INSURANCE AGENT [address] [place] [address] PCP - General Family Medicine 03/12/20 documented as of this encounter
--- OUTSIDE RECORDS SUMMARY | 2024-08-15 13:34 | XMS_ITS | Encounter Summary ---
[place] [address] Care Team Providers Care Numerical Control Nesting Operator Name Role Phone Hoang Castellanos APRN Primary Care Provider Encounter Details Date Type Department Care Team (Latest Contact Info) Description 02/12/2020 10:00 AM EDT Ancillary Procedure Radiology XRay at the [facility] at [facility] 10 [facility] [place] [address] Talita Hernandez MD [address] [facility] [address] [place] [address] Other closed intra-articular fracture of distal end [...] encounter documented in this encounter Care Teams Numerical Control Nesting Operator Relationship Specialty Start Date End Date Hoang Castellanos, SAM [address] [place] [address] PCP - General Family Medicine 12/07/19 03/11/20 documented as of this encounter
--- OUTSIDE RECORDS SUMMARY | 2024-08-15 13:34 | XMS_ITS | Encounter Summary ---
[place] [address] Care Team Providers Care Coffee Taster Name Role Phone Hoang Castellanos APRN Primary Care Provider Encounter Details Date Type Department Care Team (Late st Contact Info) Description 02/18/2020 Telephone Primary Care at [facility] 10 [facility] [place] [phone] Hoang Castellanos APRN [address] [place] [address] Social History Tobacco Use Types Packs/Day Years [...] Grace Lockhart - 02/21/2020 3:11 PM EDT [facility] aware. They will DC the order. * Telephone Encounter - Isadora Hidalgo LPN - 02/21/2020 1:22 PM EDT Received another call from [facility] they want to know if we still working to try and get this patches for Jeannie they want an answer either way * Telephone Encounter - Grace Lockhart - 02/18/2020 2:44 PM EDT Lalit Bolton I received a call from [employer] about Jeannie's Lidocaine 5% patch. The insurance denied it (denial is under scanned docs) so they are wondering if this is just being canceled or if you were going to try something different? documented in this encounter Plan of Treatment Not on file documented as of this encounter Visit Diagnoses Not on filedocumented in this encounter Care Teams Coffee Taster Relationship Specialty Start Date End Date Hoang Castellanos, SMELTER LINER [address] [place] [address] PCP - General Family Medicine 12/07/19 03/11/20 documented as of this encounter
--- OUTSIDE RECORDS SUMMARY | 2024-08-15 13:34 | XMS_ITS | Encounter Summary ---
Author Organization [facility] [place] [address] Care Team Providers Care Delivery And Installation Subcontractor Name Role Phone Hoang Castellnaos APRN Primary Care Provider Encounter Details Date Type Department Care Team (Latest Contact Info) Description 02/05/2020 12:30 PM EDT Ancillary Procedure Radiology XRay at the [facility] at [facility] [address] [place] [phone] Hoang Castellanos APRN [address] [facility] [place] [address] Right forearm pain Social History Tobacco Use [...] below. ? Electronically signed by: Flory Bedoya [facility] ([phone]), at 02/05/2020 12:53 PM Narrative 02/05/2020 12:53 [...] limb documented in this encounter Care Teams Delivery And Installation Subcontractor Relationship Specialty Start Date End Date Hoang Castellanos APRN [address] [place] [address] PCP - General Family Medicine 12/07/19 03/11/20 documented as of this encounter
--- OUTSIDE RECORDS SUMMARY | 2024-08-15 13:34 | XMS_ITS | Encounter Summary ---
[place] [address] Care Team Providers Care Automatic Spooler Operator Name Role Phone Hoang Castellanos APRN Primary Care Provider Encounter Details Date Type Department Care Team (Latest Contact Info) Description 05/01/2020 11:15 AM EDT Ancillary Procedure Radiology XRay at the [facility] at [facility] [address] [facility] [place] [address] Talita Hernandez MD [address] [facility] [address] [place] [address] Closed fracture of distal end of right [...] ? Electronically signed by: Odell Monsalve MD, [facility] ([phone]), at 05/01/2020 11:13 AM Narrative 05/01/2020 11:13 [...] sequela documented in this encounter Care Teams Automatic Spooler Operator Relationship Specialty Start Date End Date Hoang Castellanos, IRRIGATION SYSTEM INSTALLER [address] [place] [address] PCP - General Family Medicine 03/12/20 documented as of this encounter
--- OUTSIDE RECORDS SUMMARY | 2024-08-15 13:34 | XMS_ITS | Encounter Summary ---
[place] [address] Care Team Providers Care Florist Name Role Phone Hoang Castellnaos APRN Primary Care Provider Encounter Details Date Type Department Care Team (Late st Contact Info) Description 01/18/2020 Orders [place] [address] Priya [place] APRN [facility] [place] [address] Iron deficiency Social History Tobacco Use Types [...] unspecified documented in this encounter Care Teams Florist Relationship Specialty Start Date End Date Hoang Castellanos APRN [address] [place] [address] PCP - General Family Medicine 12/07/19 03/11/20 documented as of this encounter
--- OUTSIDE RECORDS SUMMARY | 2024-08-15 13:34 | XMS_ITS | Encounter Summary ---
Author Organization [place] [address] Care Team Providers Care Public Address System Operator Name Role Phone Hoang Castellanos APRN Primary Care Provider [phone] Encounter Details Date Type Department Care Team (Late st Contact Info) Description 04/08/2020 12:00 PM EDT Office Visit Physical Therapy at [address] [phone] Keely Childers PTA Low back pain, non-specific [...] her pain symptoms today. O: Therex: Strength/Endurance/ROM (88369) 40 min ?? Supine Posterior/anterior pelvic rocks [...] non-specific documented in this encounter Care Teams Public Address System Operator Relationship Specialty Start Date End Date Hoang Castellanos APRN [address] [place] [address] PCP - General Family Medicine 03/12/20 documented as of this encounter
--- OUTSIDE RECORDS SUMMARY | 2024-08-15 13:34 | XMS_ITS | Encounter Summary ---
[place] [address] Care Team Providers Care Supervisor Delivery Department Name Role Phone Hoang Castellanos APRN Primary Care Provider Encounter Details Date Type Department Care Team (Latest Contact Info) Description 04/07/2020 8:00 AM EDT Ancillary Procedure Radiology XRay at the [facility] at [facility] [address] [facility] [place] [address] Talita Hernandez MD [address] [facility] [address] ORTHOPAEDIC [place] [address] Closed fracture of distal end of right [...] sequela documented in this encounter Care Teams Supervisor Delivery Department Relationship Specialty Start Date End Date Hoang Castellanos, WEBBING INSPECTOR [address] [place] [address] PCP - General Family Medicine 03/12/20 documented as of this encounter
--- OUTSIDE RECORDS SUMMARY | 2024-08-15 13:34 | XMS_ITS | Encounter Summary ---
[place] [address] Care Team Providers Care Bpm Solution Architect Name Role Phone Hoang Castellanos APRN Primary Care Provider Reason for Visit * Reason Onset Date Comments Medication Refill 04/01/2020 Encounter Details Date Type Department Care Team (Late st Contact Info) Description 04/01/2020 Refill Primary Care at [facility] 10 [place] [phone] Isadora Hidalgo LPN Age-related osteoporosis without current [...] 1:54 PM EDT Received a fax from [facility] requesting an Rx for Fosamax, Last Prescription [...] osteoporosis documented in this encounter Care Teams Bpm Solution Architect Relationship Specialty Start Date End Date Hoang Castellanos, CLERICAL COORDINATOR [address] [place] [address] PCP - General Family Medicine 03/12/20 documented as of this encounter
--- OUTSIDE RECORDS SUMMARY | 2024-08-15 13:34 | XMS_ITS | Encounter Summary ---
Author Organization [facility] [place] [address] Care Team Providers Care Clinical Esthetician Name Role Phone Hoang Castellanos APRN Primary Care Provider Reason for Referral * Diagnostic Test (Routine) - Closed Specialty Diagnoses / Procedures Referred By Contac t Referred To Contact Radiology Diagnoses Chronic right-sided low back pain with right-sided sciatica Procedures MRI Lumbar Spine wo Contrast (Generic) Hoang Castellanos APRN [address] [place] [address] [facility] Rad Mri [address] [place] [address] Referral ID Status Reason Start Date Expiration Date V isits Requested Visits Authorized [id number] Closed Specialty Service Requested 02/05/2020 08/07/2021 1 1 Reason for Visit * Diagnostic Test (Routine) - Closed Specialty Diagnoses / Procedures Referred By Contac t Referred To Contact Radiology Diagnoses Chronic right-sided low back pain with right-sided sciatica Procedures MRI Lumbar Spine wo Contrast (Generic) Hoang Castellanos APRN [address] [place] [address] [facility] Mri [address] [place] [address] Referral ID Status Reason Start Date Expiration Date V isits Requested Visits Authorized [id number] Closed Specialty Service Requested 02/05/2020 08/07/2021 1 1 Encounter Details Date Type Department Care Team (Latest Contact Info) Description 02/19/2020 7:23 AM EDT - 02/19/2020 11:59 PM EDT Hospital Encounter Radiology MRI at [facility] [address] [place] [address] Hoang Castellanos, METAL SANDER AND FINISHER [address] [facility] [address] FAMILY MED[facility]INE [place], [place] [phone] Chronic right-sided low back pain with right-sided [...] times daily. 02/26/2021 meloxicam (MOBIC) 15 mg TabletIndications:Lead Ramp Service Man randell left SI joint pain Take 1 [...] the clinical situation (Reference- Sugark Et Al, [id number]). Findings: (Prevalence in patients without low back [...] sciatica documented in this encounter Care Teams Clinical Esthetician Relationship Specialty Start Date End Date Hoang Castellanos APRN [address] [place] [address] PCP - General Family Medicine 12/07/19 03/11/20 documented as of this encounter
--- OUTSIDE RECORDS SUMMARY | 2024-08-15 13:34 | XMS_ITS | Encounter Summary ---
[place] [address] Care Team Providers Care Rubber Goods Supervisor Name Role Phone Hoang Castellanos APRN Primary Care Provider Encounter Details Date Type Department Care Team (Latest Contact Info) Description 03/19/2020 10:30 AM EDT Ancillary Procedure Radiology XRay at the [facility] Clinic at [facility] 10 [facility] [place] [address] Talita Hernandez MD [address] [facility] [address] [place] [address] Closed fracture of distal end of right [...] below. ? Electronically signed by: Flory Bedoya [facility] ([phone]), at 03/19/2020 10:26 AM Narrative 03/19/2020 10:26 AM EDT EXAMINATION: XR [...] number below. Electronically signed by: Flory Bedoya [facility]([phone]), at 03/19/2020 10:26 AM Talita Hernandez MD IMG DX ORDERABLES documented in this encounter Visit Diagnoses Diagnosis Closed fracture of distal end of right radius, unspecified fracture morphology, sequela documented in this encounter Care Teams Rubber Goods Supervisor Relationship Specialty Start Date End Date Hoang Castellanos, SAM [address] [place] [address] PCP - General Family Medicine 03/12/20 documented as of this encounter
--- OUTSIDE RECORDS SUMMARY | 2024-08-15 13:34 | XMS_ITS | Encounter Summary ---
Author Organization [facility] [place] [address] Care Team Providers Care Onion Topper Name Role Phone Hoang Castellanos APRN Primary Care Provider [phone] Reason for Referral * Consultation (Routine) - Specialty Diagnoses / Procedures Referred By Contdavide t Referred To Contact Orthopaedics Diagnoses Closed fracture of distal end of right radius, unspecified fracture morphology, initial encounter Hoang Castellanos APRN [address] [place] [address] [facility] [place] [address] Referral ID Status Reason Start Date Expiration Date Visits Requested Visits Authorized [id number] Specialty Service Requested 02/05/2020 02/04/2021 6 6 * Diagnostic Test (Routine) - Closed Specialty Diagnoses / Procedures Referred By Contac t Referred To Contact Radiology Diagnoses Chronic right-sided low back pain with right-sided sciatica Procedures MRI Lumbar Spine wo Contrast (Generic) Hoang Castellanos APRN [address] [place] [address] [facility] Rad Mri [address] [place] [address] Referral ID Status Reason Start Date Expiration Date V isits Requested Visits Authorized [id number] Closed Specialty Service Requested 02/05/2020 08/07/2021 1 1 Reason for Visit * Reason Comments Diabetes Hypertension Right Arm Pain Encounter Details Date Type Department Care Team (Late st Contact Info) Description 02/05/2020 11:30 AM EDT Office Visit Primary Care at [facility] [address] [facility] [place] [address] Hoang Castellanos, SAM [address] FAMILY MEDICINE [place], [place] [phone] Closed fracture of distal end of right [...] 59 y.o. female presenting to the [facility] Primary Care Clinic HPI Patient presents today [...] MRI c-spine 04/2009 MRI lumbar 2012 Functional spiritism program had helped but that was prior [...] below. ? Electronically signed by: Bandar Tejeda [facility] ([phone]), at 02/19/2020 10:08 AM Narrative 02/19/2020 10:08 [...] the clinical situation (Reference- Sugark Et Al, [id number]). Findings: (Prevalence in patients without low back pain), discdegeneration (decreased T2 signal, height loss, bulge) (91%), disc T2-signal loss(83%), disc height loss (56%), disc bulge (64%), disc protrusion (32%), annularfissure (38%). Thank you for letting us participate in the care of this patient. Forquestions regarding this report, please contact the number below. Electronically signed by: Bandar Tejeda [facility]([phone]), at 02/19/2020 10:08 AM Hoang Castellanos APRN [...] below. ? Electronically signed by: Flory Bedoya [facility] ([phone]), at 02/05/2020 1:43 PM Narrative 02/05/2020 1:43 [...] please contact the number below. Hoang Castellanos VICE CHAIR IMG DX ORDERABLES * XR Forearm Right [...] below. ? Electronically signed by: Flory Bedoya [facility] ([phone]), at 02/05/2020 12:53 PM Narrative 02/05/2020 12:53 [...] sciatica documented in this encounter Care Teams Onion Topper Relationship Specialty Start Date End Date Hoang Castellanos APRN [address] [place] [address] PCP - General Family Medicine 12/07/19 03/11/20 documented as of this encounter
--- OUTSIDE RECORDS SUMMARY | 2024-08-15 13:34 | XMS_ITS | Encounter Summary ---
[place] [address] Care Team Providers Care Coat Operator Insulator Name Role Phone Hoang Castellanos APRN Primary Care Provider Encounter Details Date Type Department Care Team (Late st Contact Info) Description 03/04/2020 Orders Only Orthopaedics at [facility] 10 [place] [address] Talita Hernandez MD 10 [facility] [place] [address] Closed fracture of distal end of right [...] Primary documented in this encounter Care Teams Coat Operator Insulator Relationship Specialty Start Date End Date Hoang Castellanos APRN 10 [facility] [address] [address] PCP - General Family Medicine 12/07/19 03/11/20 documented as of this encounter
--- OUTSIDE RECORDS SUMMARY | 2024-08-15 13:34 | XMS_ITS | Encounter Summary ---
Author Organization [facility] [place] [address] Care Team Providers Care Cylinder Die Machine Operator Name Role Phone Hoang Castellanos APRN Primary Care Provider Reason for Visit * Reason Comments Follow Up Fracture RIGHT distal radius intra-articular fracture 02/04/20 Encounter Details Date Type Department Care Team (Late st Contact Info) Description 02/05/2020 1:00 PM EDT Office Visit Orthopaedics at [facility] [place] [address] Closed fracture of distal end of right [...] encounter documented in this encounter Care Teams Cylinder Die Machine Operator Relationship Specialty Start Date End Date Hoang Castellanos, PROGRAM ARCHITECT [address] [place] [address] PCP - General Family Medicine 12/07/19 03/11/20 documented as of this encounter
--- OUTSIDE RECORDS SUMMARY | 2024-08-15 13:34 | XMS_ITS | Encounter Summary ---
[place] [address] Care Team Providers Care Manager Sales Support Name Role Phone Hoang Castellanos APRN Primary Care Provider Encounter Details Date Type Department Care Team (Late st Contact Info) Description 03/12/2020 [place] [phone] Shakir Mark RN Social History Tobacco Use [...] filedocumented in this encounter Care Teams Manager Sales Support Relationship Specialty Start Date End Date Hoang Castellanos APRN [address] [place] [address] PCP - General Family Medicine 03/12/20 documented as of this encounter
--- OUTSIDE RECORDS SUMMARY | 2024-08-15 13:34 | XMS_ITS | Encounter Summary ---
[place] [address] Care Team Providers Care Record Changer Name Role Phone Hoang Castellanos APRN Primary Care Provider [phone] Reason for Visit * Reason Onset Date Comments Medication Refill 04/22/2020 Medication Refill 04/28/2020 Encounter Details Date Type Department Care Team (Late st Contact Info) Description 04/22/2020 Refill Primary Care at [facility] [place] [phone] Isadora Hidalgo LPN B12 deficiency Social History [...] 2:19 PM EDT Received a fax from [facility] Requesting Rx for aspirin metoprolol vitamin B12, vitamin D3 This prescription got send to [facility] clarify with patient she uses [facility] for all her medications only time she uses [facility] is if she needs antibiotics. documented in this encounter Plan of Treatment Not on file documented as of this encounter Visit Diagnoses Diagnosis B12 deficiency Other B-complex deficiencies documented in this encounter Care Teams Record Changer Relationship Specialty Start Date End Date Hoang Castellanos, SILK SCREEN FRAME ASSEMBLER [address] [place] [address] PCP - General Family Medicine 03/12/20 documented as of this encounter
--- OUTSIDE RECORDS SUMMARY | 2024-08-15 13:34 | XMS_ITS | Encounter Summary ---
Author Organization [facility] [place] [address] Care Team Providers Care Salesperson Men'S Hats Name Role Phone Hoang Castellanos APRN Primary Care Provider Reason for Visit * Reason Comments Follow-up Right intra-articula r distal radius and ulna fracture 02/04/20 Encounter Details Date Type Department Care Team (Late st Contact Info) Description 02/21/2020 11:30 AM EDT Office Visit Orthopaedics at [facility] [place] [address] Closed fracture of distal end of right [...] sequela documented in this encounter Care Teams Salesperson Men'S Hats Relationship Specialty Start Date End Date Hoang Castellanos, FARMWORKER BROODER FARM [address] [place] [address] PCP - General Family Medicine 12/07/19 03/11/20 documented as of this encounter
--- OUTSIDE RECORDS SUMMARY | 2024-08-15 13:34 | XMS_ITS | Encounter Summary ---
Author Organization [facility] [place] [address] Care Team Providers Care Supervisor Wet End Name Role Phone Hoang Castellanos APRN Primary Care Provider Reason for Visit * Reason Comments Follow-up Right intra-articula r distal radius and ulna fracture 02/04/20 Encounter Details Date Type Department Care Team (Late st Contact Info) Description 02/12/2020 10:15 AM EDT Office Visit Orthopaedics at [facility] 10 [facility] [place] [address] Talita Hernandez MD [address] [facility] [address] [place] [address] Closed fracture of distal end of right [...] documented in this encounter Care Teams Supervisor Wet End Relationship Specialty Start Date End Date Hoang Castellanos, SAM [address] [place] [address] PCP - General Family Medicine 12/07/19 03/11/20 documented as of this encounter
--- OUTSIDE RECORDS SUMMARY | 2024-08-15 13:34 | XMS_ITS | Encounter Summary ---
Author Organization [facility] [address] Care Team Providers Care Cardiac Care Unit Nurse Name Role Phone Hoang Castellanos APRN Primary Care Provider Reason for Visit * Reason Comments Follow-up Right intra-articula r distal radius and ulna fracture 02/04/20 Encounter Details Date Type Department Care Team (Late st Contact Info) Description 03/04/2020 9:00 AM EDT Office Visit Orthopaedics at [facility] [place] [address] Closed fracture of distal end of right [...] sequela documented in this encounter Care Teams Cardiac Care Unit Nurse Relationship Specialty Start Date End Date Hoang Castellanos, SAM [address] [place] [address] PCP - General Family Medicine 12/07/19 03/11/20 documented as of this encounter
--- OUTSIDE RECORDS SUMMARY | 2024-08-15 13:34 | XMS_ITS | Encounter Summary ---
Author Organization [facility] [place] [address] Care Team Providers Care Mixer Driver Name Role Phone Hoang Castellanos APRN Primary Care Provider Encounter Details Date Type Department Care Team (Late st Contact Info) Description 04/04/2020 Telephone Orthopaedics at [facility] 10 [facility] [place] [phone] Talita Hernandez MD [address] [facility] [place] [address] Social History Tobacco Use Types Packs/Day Years [...] on filedocumented in this encounter Care Teams Mixer Driver Relationship Specialty Start Date End Date Hoang Castellanos APRN [address] [place] [place] [address] PCP - General Family Medicine 03/12/20 documented as of this encounter
--- OUTSIDE RECORDS SUMMARY | 2024-08-15 13:34 | XMS_ITS | Encounter Summary ---
[place] [address] Care Team Providers Care Is/It Project Manager Name Role Phone Hoang Castellanos APRN Primary Care Provider [phone] Encounter Details Date Type Department Care Team (Late st Contact Info) Description 04/08/2020 Telephone Orthopaedics at [facility] [address] [place] [address] Iraseam Chairez, RN Social History Tobacco Use Types [...] on filedocumented in this encounter Care Teams Is/It Project Manager Relationship Specialty Start Date End Date Hoang Castellanos, SAM [address] [place] [address] PCP - General Family Medicine 03/12/20 documented as of this encounter
--- OUTSIDE RECORDS SUMMARY | 2024-08-15 13:35 | XMS_ITS | Encounter Summary ---
[place] [address] Care Team Providers Care Toddler Guide Name Role Phone Yisel Marroquin MD Primary Care Provider Unavail able Reason for Visit * Reason Onset Date Comments Other 01/05/2019 Encounter Details Date Type Department Care Team (Late st Contact Info) Description 01/05/2019 Telephone [place] [phone] Sidra Del Toro, ETCHER PRINTED CIRCUIT BOARDS Other Social History Tobacco Use Types Packs/Day [...] on filedocumented in this encounter Care Teams Toddler Guide Relationship Specialty Start Date End Date Yisel Marroquin MD PCP - General 11/13/18 03/05/19 documented as of this encounter
--- OUTSIDE RECORDS SUMMARY | 2024-08-15 13:35 | XMS_ITS | Encounter Summary ---
Author Organization [facility] [place] [address] Care Team Providers Care Lineman Service Or Work Dispatcher Name Role Phone Yisel Marroquin MD Primary Care Provider Unavail able Reason for Referral * Diagnostic Test (Routine) - Closed Specialty Diagnoses / Procedures Referred By Contdavide t Referred To Contact Radiology Diagnoses Long-term use of high-risk medication Other osteoporosis without current pathological fracture Procedures DXA Central-Spine, Hip, And/Or Whole Body (Generic) Yisel Marroquin MD 10 [place] [address] Apdc Rad Xray 10 [place] [address] Referral ID Status Reason Start Date Expiration Date V isits Requested Visits Authorized [id number] Closed Specialty Service Requested 02/07/2019 02/07/2020 1 1 Reason for Visit * Reason Comments Follow-up Encounter Details Date Type Department Care Team ([facility] Contact Info) Description 02/07/2019 11:30 AM EDT Office Visit Primary Care at [address] [address] Yisel Marroquin MD Smokes cigarettes; [...] alert, oriented, no distress, obese white female, 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 CV: [...] BMD measurements and plots are available in [employer] under the imaging tab. Paper copies will be sent to providers without E-DH access. If you have received this report without the data sheet and do not have access to E-Kahnoodle, please contact Radiology Heating Systems Installer at [phone] Tuesday thru Tuesday 8am-4pm. Thank you for letting us participate in the care of this patient. For questions regarding this report, please contact the number below. ? Electronically signed by: Rinku Wilkins [facility] ([phone]), at 02/20/2019 10:58 AM Narrative 02/20/2019 10:58 AM EDT EXAMINATION: DXA CENTRAL-SPINE, HIP, AND/OR WHOLE BODY (GENERIC) CLINICAL HISTORY: Hx bariatric surgery amd senior living PPI use, rec by gen surg TECHNIQUE: [...] (GENERIC) CLINICAL HISTORY: Hx bariatric surgery amd senior living PPI use, rec by gensurg TECHNIQUE: Scans [...] BMD measurements and plots are available in [employer] the imaging tab. Paper copies will be sent to providers without Anzode access.If you have received this report without the data sheet and do not haveaccess to An[employer], please contact Radiology Heating Systems Installer at [phone] Tuesday thruFriday 8am-4pm. Thank you for letting us participate in the care of this patient. Forquestions regarding this report, please contact the number below. Electronically signed by: Rinku Wilkins [facility]([phone]), at 02/20/2019 10:58 AM Yisel Marroquin MD [...] fracture documented in this encounter Care Teams Lineman Service Or Work Dispatcher Relationship Specialty Start Date End Date Yisel Marroquin MD PCP - General 11/13/18 03/05/19 documented as of this encounter
--- OUTSIDE RECORDS SUMMARY | 2024-08-15 13:35 | XMS_ITS | Encounter Summary ---
Author Organization [facility] [place] [address] Care Team Providers Care Telecommunicator Supervisor Name Role Phone Hoang Castellanos APRN Primary Care Provider [phone] Encounter Details Date Type Department Care Team (Late st Contact Info) Description 12/24/2019 Orders Only Primary Care at [facility] [address] [place] [phone] Payal Ace, OBSTETRICAL TECH Social History Tobacco Use Types Packs/Day Years [...] on filedocumented in this encounter Care Teams Telecommunicator Supervisor Relationship Specialty Start Date End Date Hoang Castellanos APRN [address] [place] [address] PCP - General Family Medicine 12/07/19 03/11/20 documented as of this encounter
--- OUTSIDE RECORDS SUMMARY | 2024-08-15 13:35 | XMS_ITS | Encounter Summary ---
Author [facility] [place] [address] Care Team Providers Care Inspector Returned Materials Name Role Phone Yisel Marroquin MD Primary Care Provider Unavail able Reason for Visit * Reason Comments Medication Refill Encounter Details Date Type Department Care Team (Late st Contact Info) Description 02/26/2019 Refill Cardiology at [address] [address] Freddy Mejias MD [facility] [place] [address] Medication Refill Social History Tobacco Use Types [...] filedocumented in this encounter Care Teams Inspector Returned Materials Relationship Specialty Start Date End Date Yisel Marroquin MD PCP - General 11/13/18 03/05/19 documented as of this encounter
--- OUTSIDE RECORDS SUMMARY | 2024-08-15 13:35 | XMS_ITS | Encounter Summary ---
Author Organization [facility] [place] [address] Care Team Providers Care Belling Machine Operator Name Role Phone Yisel Marroquin MD Primary Care Provider Unavail able Encounter Details Date Type Department Care Team (Late st Contact Info) Description 08/24/2019 Orders Only Primary Care at [facility] [address] [place] [address] Meli Jaimes, PAPER CUTTER OPERATOR [address] [place] [address] Social History Tobacco Use Types Packs/Day Years [...] on filedocumented in this encounter Care Teams Belling Machine Operator Relationship Specialty Start Date End Date Yisel Marroquin MD PCP - General General Internal Medicine [birth year]12/05/ 0 documented as of this encounter
--- OUTSIDE RECORDS SUMMARY | 2024-08-15 13:35 | XMS_ITS | Encounter Summary ---
Author Organization [place] [address] Care Team Providers Care Online Media Buyer Name Role Phone Yisel Marroquin MD Primary Care Provider Unavail able Reason for Visit * Reason Comments Follow-up Encounter Details Date Type Department Care Team (Late st Contact Info) Description 04/11/2019 11:30 AM EDT Office Visit Primary Care at [facility] 10 [place] [address] Yisel Marroquin MD Routine history and physical [...] more? Visit our health information library at [email or web address] Marketplaceinfo. You can also view health information on JotSpot, your personal patient account. Log in or sign uptoday. Enter M541 in the search box to learn more about Colon Cancer Screening: Care Instructions. Current as of: July 12, 2018 Content Version: 12. ?? [id number] [employer]. Care instructions adapted under license by [facility]. If you have questions about a medical condition or this instruction, always ask your healthcare professional. [employer] disclaims any warranty or liability for your [...] alert, oriented, no distress, obese white female, upper caser at side HEENT: Dry mucus membranes. [...] adult Routine general medical examination at a regional medical center care facility Age-related osteoporosis without current pathological fracture Senile osteoporosis documented in this encounter Care Teams Online Media Buyer Relationship Specialty Start Date End Date Yisel Marroquin MD PCP - General General Internal Medicine 03/06/19 0 documented as of this encounter
--- OUTSIDE RECORDS SUMMARY | 2024-08-15 13:35 | XMS_ITS | Encounter Summary ---
Author Organization [facility] [place] [address] Care Team Providers Care Junior Php Developer Name Role Phone Yisel Marroquin MD Primary Care Provider Unavail able Encounter Details Date Type Department Care Team (Late st Contact Info) Description 01/30/2019 Telephone Primary Care at [facility] 10 [place] [address] Ananth Wilson MD 10 [facility] [place] [address] Social History Tobacco Use Types Packs/Day Years [...] - 01/30/2019 8:05 AM EDT Bethel from [facility] is calling to ask if you [...] filedocumented in this encounter Care Teams Junior Php Developer Relationship Specialty Start Date End Date Yisel Marroquin MD PCP - General 11/13/18 03/05/19 documented as of this encounter
--- OUTSIDE RECORDS SUMMARY | 2024-08-15 13:35 | XMS_ITS | Encounter Summary ---
Author Organization [facility] [place] [address] Care Team Providers Care Regulatory Assistant Name Role Phone Yisel Marroquin MD Primary Care Provider Unavail able Reason for Visit * Reason Onset Date Comments Medication Refill 08/20/2019 Encounter Details Date Type Department Care Team (Late st Contact Info) Description 08/20/2019 Refill Primary Care at [facility] 10 [place] [address] Yisel Marroquin MD Social History Tobacco Use [...] filedocumented in this encounter Care Teams Regulatory Assistant Relationship Specialty Start Date End Date Yisel Marroquin MD PCP - General General Internal Medicine 03/06/19 0 documented as of this encounter
--- OUTSIDE RECORDS SUMMARY | 2024-08-15 13:35 | XMS_ITS | Encounter Summary ---
Author Organization [facility] [place] [address] Care Team Providers Care Dock Pumper Name Role Phone Yisel Marroquin MD Primary Care Provider Unavail able Reason for Visit * Reason Onset Date Comments Medication Refill 01/29/2019 Encounter Details Date Type Department Care Team (Late st Contact Info) Description 01/29/2019 Refill Primary Care at [facility] 10 [place] [phone] Yisel Marroquin MD Social History Tobacco Use [...] filedocumented in this encounter Care Teams Dock Pumper Relationship Specialty Start Date End Date Yisel Marroquin MD PCP - General 11/13/18 03/05/19 documented as of this encounter
--- OUTSIDE RECORDS SUMMARY | 2024-08-15 13:35 | XMS_ITS | Encounter Summary ---
Author Organization [place] [address] Care Team Providers Care Refinery Operator Assistant Name Role Phone Yisel Marroquin MD Primary Care Provider Unavail able Reason for Visit * Reason Comments Medication Refill Encounter Details Date Type Department Care Team (Late st Contact Info) Description 11/20/2019 Refill Primary Care at [facility] 10 [place] [address] Ananth Wilson MD 10 [facility] [place] [address] Social History Tobacco Use Types Packs/Day Years [...] on filedocumented in this encounter Care Teams Refinery Operator Assistant Relationship Specialty Start Date End Date Yisel Marroquin MD PCP - General General Internal Medicine 03/06/19 0 documented as of this encounter
--- OUTSIDE RECORDS SUMMARY | 2024-08-15 13:35 | XMS_ITS | Encounter Summary ---
Author Organization [facility] Address [facility] [place] [address] Care Team Providers Care Music Executive Name Role Phone Hoang Castellanos APRN Primary Care Provider [phone] Encounter Details Date Type Department Care Team (Latest Contact Info) Description 01/01/2020 8:30 AM EDT Laboratory Appointment Laboratory [place] [address] Essential hypertension; Type 2 diabetes mellitus without [...] APRN CHEMISTRY ORDERABLES LABORATORY [address] [place] [address] * Differential, Automated (01/01/2020 8:33 AM EDT) [...] Spec In Lab / APD Hoang Castellanos TEACHER OF THE EMOTIONALLY DISTURBED HEMATOLOGY ORDERABLE S LABORATORY [address] [place] [address] * (ABNORMAL) Hemogram (01/01/2020 8:33 AM EDT) [...] APRN HEMATOLOGY ORDERABLE S Performing Organization Address [facility] Co de Phone Number LABORATORY [address] [place] [address] * (ABNORMAL) Hemoglobin A1c (01/01/2020 8:33 AM EDT) Hemoglobin A1c 6.0(H) 4.3 - 5.6 % LABORATORY Estimated Average Glucose 126 mg/dL LABORATORY Blood specimen (specimen) 01/01/2020 8:33 AM EDT 01/01/2020 11:11 AM EDT Narrative Resulting Agency Comment Spec In Lab / APD Hoang Castellanos APRN CHEMISTRY ORDERABLES Performing Organization Address [facility] Co de Phone Number LABORATORY [address] [place] [address] * (ABNORMAL) Comprehensive metabolic panel (non-fasting) (01/01/2020 [...] of body mass or the acutely ill. http://[email or web address].com/Zemantankf eGFR 81 >=60 mL/min/1. 73 m?? LABORATORY Comment: The eGFR was calculated using the CKD-EPI equation. As with all creatinine based estimates of kidney function, eGFR values calculated with the CKD-EPI equation are not accurate in patients with acute kidney failure, extremes of body mass or the acutely ill. http://[email or web address].com/DHMCnkf Blood specimen (specimen) 01/01/2020 8:33 AM EDT 01/01/2020 11:13 AM EDT Narrative Resulting Agency Comment Spec In Lab / APD Hoang Castellanos APRN CHEMISTRY ORDERABLES LABORATORY 10 [place] [address] documented in this encounter Visit Diagnoses Diagnosis Essential hypertension Unspecified essential hypertension Type 2 diabetes mellitus without complication, without long-term current use of insulin Hypothyroidism, acquired Unspecified hypothyroidism documented in this encounter Care Teams Music Executive Relationship Specialty Start Date End Date Hoang Castellanos APRN [address] [place] [address] PCP - General Family Medicine 12/07/19 03/11/20 documented as of this encounter
--- OUTSIDE RECORDS SUMMARY | 2024-08-15 13:35 | XMS_ITS | Encounter Summary ---
[place] [address] Care Team Providers Care Practice Representative Name Role Phone Yisel Marroquin MD Primary Care Provider Unavail able Encounter Details Date Type Department Care Team (Late st Contact Info) Description 01/05/2019 Orders Only [place] [address] Sidra Del Toro, DIRECTOR OF NURSING Social History Tobacco Use Types Packs/Day Years [...] on filedocumented in this encounter Care Teams Practice Representative Relationship Specialty Start Date End Date Yisel Marroquin MD PCP - General 11/13/18 03/05/19 documented as of this encounter
--- OUTSIDE RECORDS SUMMARY | 2024-08-15 13:35 | XMS_ITS | Encounter Summary ---
[place] [address] Care Team Providers Care Care Provider Name Role Phone Hoang Castellanos APRN Primary Care Provider Encounter Details Date Type Department Care Team (Late st Contact Info) Description 01/08/2020 1:00 PM EDT TH Visit (TeleHealth) [place] [address] Priya Charles, GRAIN ELEVATOR WORKER [facility] [address] Tamar Guerra, RD [facility] [place] [address] Essential hypertension; Smokes cigarettes; Gastroesophageal reflux disease, [...] Guerra, RD - 01/08/2020 1:00 PM EDT [facility] desktop support engineer Lela [phone] and [place] [phone] Dietitians: [phone] Surgeons/ nurse practitioners: [phone] Nurse line: [phone] Dear Jeannie It was nice talking to [...] follow up in 1 year. Please call [phone] if you do not receive an appointment [...] Our post surgery support group meets at [facility]- currently on hold due to covid 19 1. on the first Tuesday of every month from 1:00 PM-2:00 PM Nutrition and Activity apps- Baritastic, My Fitness Pal, Lose It, My Plate Internet resources: www.Histros www[employer] www.bariatriceating.PEAK-IT www.Invizeon.PEAK-IT/blog [facility] facebook page: https://www.facebook.com/[facility]WTONBariatricSurgery Books & Magazines: - Recipes for Life After Weight Loss Surgery by Suly Cruz - Shrink Yourself by Dr Juan Carlos Carlos - Eating Well - www.Rest Devices - Cooking Light- www.cookingMango DSP.PEAK-IT Anxiety: The Happiness Trap by Efren Richey The Mindfulness and acceptance workbook for anxiety By Jose A Acosta. Mindful eating: What are you Hungry For? By Ricardo Murray The Mindful Diet by Katerine Nelson and the [facility] group. Emotional eating: End Emotional Eating by Tamar Russo Calming the Emotional Storm Jessica Hayes documented in this encounter Progress Notes * Priya Charles APRN - 01/08/2020 1:00 [place] [address] Bariatric Surgery Program: Telephone Encounter. 1. Reason/purpose [...] G89.29 ??? Lumbago M54.5 ??? Atherosclerosis of rampart coronary artery of rampart heart without angina pectoris I25.10 ??? Hypertension [...] review via e- Priya Charles APRN * aTmar Guerra, RD - 01/08/2020 1:00 PM EDT Bariatric Nutrition Telephone Office Visit Phone call made with Priya Charles APRN SUBJECTIVE: Topics Discussed/Patient Concerns: ?? No exercise, off track with eating ?? 224# now- down 5#. ?? Using Premier Protein powder. [place] milk- feels like she's going to throw- up. Drinks it fast. ?? Works with therapist weekly and rehabilitation caseworker daily Social History: Has a supportive outsole caser.? OBJECTIVE: Type of Surgery:??non-divided RNY gastric bypass [...] 01/08/20 224# 51% 38.4 19.5 years post-op [place] Body Weight (based on BMI of 25): [...] Perfect Iron which is made by the Stripe. Supplement Type Brand/Form Dosage/Amount Frequency Comments Multivitamin [...] 25 OH 38 21 - 100 ng/mL [facility] Comment: Please note, effective November 28, 2019, additional result field for Vitamin D Interpretation, and updated flagging notification. Vit D Interp Sufficient [facility] Blood specimen (specimen) 01/18/2020 12:56 PM EDT 01/18/2020 4:52 PM EDT Narrative Resulting Agency Comment Spec In Lab / APD Priya Charles APRN CHEMISTRY ORDERA BLES Performing Organization Address City/[facility]/ZIP Co de Phone Number [facility] [place] [address] * PTH (01/18/2020 12:56 PM EDT) Parathyroid Hormone 54 15 - 65 pg/mL [facility] Blood specimen (specimen) 01/18/2020 12:56 PM EDT 01/18/2020 4:52 PM EDT Narrative Resulting Agency Comment Spec In Lab / APD Priya Charles APRN CHEMISTRY ORDERA BLES Performing Organization Address City/[facility]/ZIP Co de Phone Number [facility] [place] [address] * (ABNORMAL) Iron and TIBC (01/18/2020 12:56 [...] APRN CHEMISTRY ORDERA BLES Performing Organization Address [facility] de Phone Number [facility] [address] [place] [address] * (ABNORMAL) Ferritin (01/18/2020 12:56 PM EDT) Ferritin 16(L) 30 - 400 ng/mL [facility] Comment: Pediatric reference ranges not verified at [facility], interpret with caution. Reference ranges for females greater than 50 years of age approach values for men, i.e., 30-400 ng/mL. Blood specimen (specimen) 01/18/2020 12:56 PM EDT 01/18/2020 1:45 PM EDT Narrative Resulting Agency Comment Spec In Lab / APD Priya Charles APRN CHEMISTRY ORDERA BLES Performing Organization Address [facility] de Phone Number [facility] [address] [place] [address] * (ABNORMAL) Prealbumin (01/18/2020 12:56 PM EDT) Prealbumin 18(L) 20 - 40 mg/dL [facility] Comment: Prealbumin levels are generally lower in the pediatric population; adult concentrations are usually attained near puberty. Blood specimen (specimen) 01/18/2020 12:56 PM EDT 01/18/2020 4:52 PM EDT Narrative Resulting Agency Comment Spec In Lab / APD Priya Charles APRN CHEMISTRY ORDERA BLES Performing Organization Address [facility] Co de Phone Number [facility] [place] [address] documented in this encounter Visit Diagnoses Diagnosis [...] nonabsorption documented in this encounter Care Teams Care Provider Relationship Specialty Start Date End Date Hoang Castellanos, GRAIN ELEVATOR WORKER [address] [place] [address] PCP - General Family Medicine 12/07/19 03/11/20 documented as of this encounter
--- OUTSIDE RECORDS SUMMARY | 2024-08-15 13:35 | XMS_ITS | Encounter Summary ---
[place] [address] Care Team Providers Care Woodworking Machine Feeder Name Role Phone Yisel Marroquin MD Primary Care Provider Unavail able Encounter Details Date Type Department Care Team (Late st Contact Info) Description 05/23/2019 Telephone Primary Care at [facility] [place] [address] Shannon Chung, RN Social History Tobacco Use [...] called asking for rx to sent to [facility]. rx sent * Telephone Encounter - Shannon Chung RN - 05/25/2019 5:11 PM EDT Discussed with PCP, pt instructed to increase lisinopril to 15mg QD, continue to monitor with goal to <120/80 * Telephone Encounter - Shannon Chung RN - 05/23/2019 3:34 PM EDT Jeannie called to give update of her BP. She has this taken once a week at [facility]. She states that it has been really good other than 05/22/19. Other BP has been in the 140s/70s. On 05/22: 164/85. She contributes this to having pneumonia, anxiety, and stress. PCP notified. documented in this encounter Plan of Treatment Not on file documented as of this encounter Visit Diagnoses Not on filedocumented in this encounter Care Teams Woodworking Machine Feeder Relationship Specialty Start Date End Date Yisel Marroquin MD PCP - General General Internal Medicine 03/06/19 0 documented as of this encounter
--- OUTSIDE RECORDS SUMMARY | 2024-08-15 13:35 | XMS_ITS | Encounter Summary ---
Author Organization [place] [address] Care Team Providers Care Division Chair Name Role Phone Hoang Castellanos APRN Primary Care Provider Encounter Details Date Type Department Care Team (Latest Contact Info) Description 12/26/2019 10:00 AM EDT TH Visit (TeleHealth) Primary Care at [facility] 10 [facility] [address] Hoang Castellanos APRN 10 [facility] [address] Benign essential hypertension; Type 2 diabetes mellitus [...] y.o. female presenting to the [facility] HPI Mental [...] type documented in this encounter Care Teams Division Chair Relationship Specialty Start Date End Date Hoang Castellanos APRN [address] [place] [address] PCP - General Family Medicine 12/07/19 03/11/20 documented as of this encounter
--- OUTSIDE RECORDS SUMMARY | 2024-08-15 13:35 | XMS_ITS | Encounter Summary ---
[place] [address] Care Team Providers Care Sewer Builder Name Role Phone Yisel Marroquin MD Primary Care Provider Unavail able Reason for Visit * Reason Comments Medication Refill Encounter Details Date Type Department Care Team (Late st Contact Info) Description 07/20/2019 Refill Primary Care at [facility] 10 [place] [address] Yisel Marroquin MD Social History Tobacco Use [...] on filedocumented in this encounter Care Teams Sewer Builder Relationship Specialty Start Date End Date Yisel Marroquin MD PCP - General General Internal Medicine 03/06/19 0 documented as of this encounter
--- OUTSIDE RECORDS SUMMARY | 2024-08-15 13:35 | XMS_ITS | Encounter Summary ---
[place] [address] Care Team Providers Care Business Analyst Manager Name Role Phone Yisel Marroquin MD Primary Care Provider Unavail able Encounter Details Date Type Department Care Team (Late st Contact Info) Description 04/06/2019 Telephone Pharmacy at [facility] 10 [place] [address] Lyly Dixon, [facility] Social History Tobacco Use Types Packs/Day [...] Miscellaneous Notes * [facility]09/2019 9:43 AM EDT Jeannie Lawson Trisha [id number] is scheduled for an office visit with [...] for flu shot at [facility]. Medications 04/09/19 7640 Medication Sig Taking? ibuprofen (ADVIL;MOTRIN) 600 mg [...] filedocumented in this encounter Care Teams Business Analyst Manager Relationship Specialty Start Date End Date Yisel Marroquin MD PCP - General General Internal Medicine 03/06/19 0 documented as of this encounter
--- OUTSIDE RECORDS SUMMARY | 2024-08-15 13:35 | XMS_ITS | Encounter Summary ---
[place] [address] Care Team Providers Care Geophysical Drafter Name Role Phone Yisel Marroquin MD Primary Care Provider Unavail able Reason for Visit * Reason Comments Medication Refill Encounter Details Date Type Department Care Team (Late st Contact Info) Description 10/29/2019 Refill Primary Care at [facility] 10 [place] [phone] Yisel Marroquin MD Gastroesophageal reflux disease, esophagitis [...] specified documented in this encounter Care Teams Geophysical Drafter Relationship Specialty Start Date End Date Yisel Marroquin MD PCP - General General Internal Medicine 03/06/19 0 documented as of this encounter
--- OUTSIDE RECORDS SUMMARY | 2024-08-15 13:35 | XMS_ITS | Encounter Summary ---
Author Organization [facility] [place] [address] Care Team Providers Care Assorter Name Role Phone Hoang Castellanos APRN Primary Care Provider [phone] Encounter Details Date Type Department Care Team (Late st Contact Info) Description 12/28/2019 Notes Only Primary Care at [facility] 10 [place] [phone] Isadora Hidalgo LPN Social History Tobacco Use [...] on filedocumented in this encounter Care Teams Assorter Relationship Specialty Start Date End Date Hoang Castellanos APRN [address] [facility] [facility] [place] [address] PCP - General Family Medicine 12/07/19 03/11/20 documented as of this encounter
--- OUTSIDE RECORDS SUMMARY | 2024-08-15 13:35 | XMS_ITS | Encounter Summary ---
[place] [address] Care Team Providers Care Broadcast Engineer Name Role Phone Yisel Marroquin MD Primary Care Provider Unavail able Encounter Details Date Type Department Care Team (Late st Contact Info) Description 09/24/2019 Telephone Primary Care at [facility] 10 [place] [address] Meli Jaimes, CUSTOMER EXPERIENCE CONSULTANT [address] [place] [address] Social History Tobacco Use Types Packs/Day Years [...] PM EST Message received from Patel with [facility]. He is calling because the patient's prescriptionfor meloxicam interacts with her aspirin, lisinopril, sertraline and plavix. They need to confirm that you are aware of this and okay with the possible interactions. documented in this encounter Plan of Treatment Not on file documented as of this encounter Visit Diagnoses Not on filedocumented in this encounter Care Teams Broadcast Engineer Relationship Specialty Start Date End Date Yisel Marroquin MD PCP - General General Internal Medicine 03/06/19 0 documented as of this encounter
--- OUTSIDE RECORDS SUMMARY | 2024-08-15 13:35 | XMS_ITS | Encounter Summary ---
[place] [address] Care Team Providers Care Art Class Model Name Role Phone Hoang Castellanos APRN Primary Care Provider Encounter Details Date Type Department Care Team (Late st Contact Info) Description 01/02/2020 Telephone Primary Care at [facility] [place] [phone] Isadora Hidalgo LPN Social History Tobacco Use [...] filedocumented in this encounter Care Teams Art Class Model Relationship Specialty Start Date End Date Hoang Castellanos APRN [address] [place] [address] PCP - General Family Medicine 12/07/19 03/11/20 documented as of this encounter
--- OUTSIDE RECORDS SUMMARY | 2024-08-15 13:35 | XMS_ITS | Encounter Summary ---
[place] [address] Care Team Providers Care Trouble Locater Name Role Phone Yisel Marroquin MD Primary Care Provider Unavail able Encounter Details Date Type Department Care Team (Late st Contact Info) Description 01/05/2019 Notes [place] [address] Sidra Del Toro, VOUCHER CLERK Social History Tobacco Use Types Packs/Day Years [...] 01/05/2019 12:36 PM EDT Bariatric Surgery Program [facility] cardiology clinic called to clarify [...] on filedocumented in this encounter Care Teams Trouble Locater Relationship Specialty Start Date End Date Yisel Marroquin MD PCP - General 11/13/18 03/05/19 documented as of this encounter
--- OUTSIDE RECORDS SUMMARY | 2024-08-15 13:35 | XMS_ITS | Encounter Summary ---
Author Organization [facility] [place] [address] Care Team Providers Care Chemistry Lab Instructor Name Role Phone Hoang Castellanos APRN Primary Care Provider [phone] Encounter Details Date Type Department Care Team (Latest Contact Info) Description 12/27/2019 7:25 AM EDT Laboratory Appointment Laboratory at [facility] [place] [phone] Hyperlipidemia, unspecified hyperlipidemia type; Dizzinesses; Vision changes [...] MD CHEMISTRY ORDERABLES [facility] [address] [place] [address] * Lipid Panel (Reflex Direct LDL) (12/27/2019 7:27 AM EDT) Cholesterol, Total 114 mg/dL [facility] Comment: Lower Risk: <200 mg/dL Average Risk: 200-239 mg/dL Higher Risk: >zt=529 mg/dL Triglyceride 102 mg/dL [facility] Comment: Average Risk/Lower Risk: <150 mg/dL Borderline High Risk: 150-199 mg/dL High Risk: 200-499 mg/dL Very High Risk: >jp=039 mg/dL HDL Cholesterol 38 mg/dL [facility] Comment: Males: ?? Higher Risk: <40 mg/dL Females: ?? HIgher Risk: <50 mg/dL LDL Cholesterol 56 mg/dL [facility] Comment: Lowest Risk: <100 mg/dL Lower Risk: 100-129 mg/dL Borderline High Risk: 130-159 mg/dL High Risk: 160-189 mg/dL Very High Risk: >tx=720 mg/dL Cholesterol/HDL Ratio 3.0 ratio [facility] Lipid Interpretation See Note [facility] Comment: Lipid management should be guided by a patient? s ASCVD risk, goals and preferences. ACC/AHA Guidelines recommend high intensity statin if clinical ASCVD or LDL greater than or equal to 190 mg/dL. http://tinyurl.com/FSB-HSM-Zigrbczge Adults aged 40-75 with LDL 70-189 mg/dL should have their 10 year ASCVD risk estimated with the ACC/AHA ASCVD risk rheostat assembler http://tools.acc.org/AWTVZ-Abkt-Viudpzfoc/ Statin should be discussed if risk greater [...] ORDERABLES [facility] [address] [place] [address] documented in this encounter Visit Diagnoses Diagnosis Hyperlipidemia, unspecified hyperlipidemia type Dizzinesses Vision changes Unspecified visual disturbance documented in this encounter Care Teams Chemistry Lab Instructor Relationship Specialty Start Date End Date Hoang Castellanos, PALLET SORTER [address] [place] [address] PCP - General Family Medicine 12/07/19 03/11/20 documented as of this encounter
--- OUTSIDE RECORDS SUMMARY | 2024-08-15 13:35 | XMS_ITS | Encounter Summary ---
[place] [address] Care Team Providers Care Ancillary Services Manager Name Role Phone Yisel Marroquin MD Primary Care Provider Unavail able Encounter Details Date Type Department Care Team (Late st Contact Info) Description 04/18/2019 Telephone Primary Care at [facility] 10 [place] [address] Shannon Cruz, RN Social History Tobacco Use [...] check BP q weekly. [facility]. 184/89 and 195/104. PCP notified. documented in this encounter Plan of Treatment Not on file documented as of this encounter Visit Diagnoses Not on filedocumented in this encounter Care Teams Ancillary Services Manager Relationship Specialty Start Date End Date Yisel Marroquin MD PCP - General General Internal Medicine 03/06/19 0 documented as of this encounter
--- OUTSIDE RECORDS SUMMARY | 2024-08-15 13:35 | XMS_ITS | Encounter Summary ---
[place] [address] Care Team Providers Care Ad Trafficker Name Role Phone Yisel Marroquin MD Primary Care Provider Unavail able Reason for Visit * Reason Comments Medication Refill Encounter Details Date Type Department Care Team (Late st Contact Info) Description 11/08/2019 Refill Primary Care at [facility] 10 [place] [phone] Yisel Marroquin MD Social History Tobacco Use [...] Notes * Telephone Encounter - Meena Galloway [facility] - 11/08/2019 2:04 PM EDT Incruse Ellipta [...] filedocumented in this encounter Care Teams Ad Trafficker Relationship Specialty Start Date End Date Yisel Marroquin MD PCP - General General Internal Medicine 03/06/19 0 documented as of this encounter
--- OUTSIDE RECORDS SUMMARY | 2024-08-15 13:35 | XMS_ITS | Encounter Summary ---
[place] [address] Care Team Providers Care Tractor Driver Name Role Phone Hoang Castellanos APRN Primary Care Provider Encounter Details Date Type Department Care Team (Late st Contact Info) Description 12/28/2019 Telephone Primary Care at [facility] 10 [place] [phone] Isadora Hidalgo LPN Social History Tobacco Use [...] APRN Sent: 12/27/2019 2:11 PM EDT To: [facility] Primary Care Nurse Can we please see if we can add on A1c-I didn't realized the previous order on 12/22. documented in this encounter Plan of Treatment Not on file documented as of this encounter Visit Diagnoses Not on filedocumented in this encounter Care Teams Tractor Driver Relationship Specialty Start Date End Date Hoang Castellanos APRN [address] [place] [address] PCP - General Family Medicine 12/07/19 03/11/20 documented as of this encounter
--- OUTSIDE RECORDS SUMMARY | 2024-08-15 13:35 | XMS_ITS | Encounter Summary ---
[place] [address] Care Team Providers Care Line Maintenance Technician Name Role Phone Yisel Marroquin MD Primary Care Provider Unavail able Encounter Details Date Type Department Care Team (Late st Contact Info) Description 04/12/2019 Telephone Primary Care at [facility] 10 [place] [address] Shannon Cruz RN Social History Tobacco Use [...] on filedocumented in this encounter Care Teams Line Maintenance Technician Relationship Specialty Start Date End Date Yisel Marroquin MD PCP - General General Internal Medicine 03/06/19 0 documented as of this encounter
--- OUTSIDE RECORDS SUMMARY | 2024-08-15 13:35 | XMS_ITS | Encounter Summary ---
[place] [address] Care Team Providers Care Produce Field Merchandiser Name Role Phone Yisel Marroquin MD Primary Care Provider Unavail able Encounter Details Date Type Department Care Team (Late st Contact Info) Description 06/01/2019 Orders Only Primary Care at [facility] 10 [place] [address] Devi Mccormick RN B12 deficiency Social History [...] deficiencies documented in this encounter Care Teams Produce Field Merchandiser Relationship Specialty Start Date End Date Yisel Marroquin MD PCP - General General Internal Medicine 03/06/19 0 documented as of this encounter
--- OUTSIDE RECORDS SUMMARY | 2024-08-15 13:35 | XMS_ITS | Encounter Summary ---
Author Organization [facility] [place] [address] Care Team Providers Care Political Aide Name Role Phone Yisel Marroquin MD Primary Care Provider Unavail able Encounter Details Date Type Department Care Team (Late st Contact Info) Description 07/24/2019 Telephone Primary Care at [facility] 10 [place] [address] Meli Jaimes, WIG COMBER [address] ORTHOPA[place] [address] Social History Tobacco Use Types Packs/Day Years [...] 07/24/2019 9:43 AM EST Fax received from [employer] stating that the Spiriva is not on her formulary. They are asking for the prescription to be changed to incruse ellipta. Ok to switch? documented in this encounter Plan of Treatment Not on file documented as of this encounter Visit Diagnoses Not on filedocumented in this encounter Care Teams Political Aide Relationship Specialty Start Date End Date Yisel Marroquin MD PCP - General General Internal Medicine 03/06/19 0 documented as of this encounter
--- OUTSIDE RECORDS SUMMARY | 2024-08-15 13:35 | XMS_ITS | Encounter Summary ---
[place] [address] Care Team Providers Care Manager Oracle Retail Name Role Phone Yisel Marroquin MD Primary Care Provider Unavail able Encounter Details Date Type Department Care Team (Late st Contact Info) Description 01/05/2019 Telephone Cardiology at [address] [phone] Jessica Galindo, RN Social History Tobacco Use [...] filedocumented in this encounter Care Teams Manager [employer] Retail Relationship Specialty Start Date End Date Yisel Marroquin MD PCP - General 11/13/18 03/05/19 documented as of this encounter
--- OUTSIDE RECORDS SUMMARY | 2024-08-15 13:35 | XMS_ITS | Encounter Summary ---
[place] [address] Care Team Providers Care Miter Operator Name Role Phone Yisel Marroquin MD Primary Care Provider Unavail able Encounter Details Date Type Department Care Team (Late st Contact Info) Description 01/08/2019 Telephone Primary Care at [facility] 10 [place] [address] Yisel Marroquin MD Social History Tobacco Use [...] PCP okayed this (see note from 01/05/19) [facility] called asking question about lisinopril dose. PCP notified. documented in this encounter Plan of Treatment Not on file documented as of this encounter Visit Diagnoses Not on filedocumented in this encounter Care Teams Miter Operator Relationship Specialty Start Date End Date Yisel Marroquin MD PCP - General 11/13/18 03/05/19 documented as of this encounter
--- OUTSIDE RECORDS SUMMARY | 2024-08-15 13:35 | XMS_ITS | Encounter Summary ---
Author Organization [facility] [place] [address] Care Team Providers Care Agile Scrum Master Name Role Phone Yisel Marroquin MD Primary Care Provider Unavail able Encounter Details Date Type Department Care Team (Late st Contact Info) Description 08/23/2019 Orders Only Primary Care at [facility] [address] [place] [address] Meli Jaimes, INSPECTOR SHELLS [address] [place] [address] Social History Tobacco Use Types Packs/Day Years [...] on filedocumented in this encounter Care Teams Agile Scrum Master Relationship Specialty Start Date End Date Yisel Marroquin MD PCP - General General Internal Medicine 03/06/1912/05/ 0 documented as of this encounter
--- OUTSIDE RECORDS SUMMARY | 2024-08-15 13:35 | XMS_ITS | Encounter Summary ---
Author Organization [facility] [place] [address] Care Team Providers Care Extended Insurance Clerk Name Role Phone Yisel Marroquin MD Primary Care Provider Unavail able Reason for Visit * Reason Comments Medication Refill Encounter Details Date Type Department Care Team (Late st Contact Info) Description 06/29/2019 Refill Primary Care at [facility] 10 [place] [address] Ananth Wilson MD [address] [facility] [place] [address] Social History Tobacco Use Types Packs/Day Years [...] on filedocumented in this encounter Care Teams Extended Insurance Clerk Relationship Specialty Start Date End Date Yisel Marroquin MD PCP - General General Internal Medicine 03/06/19 0 documented as of this encounter
--- OUTSIDE RECORDS SUMMARY | 2024-08-15 13:35 | XMS_ITS | Encounter Summary ---
[place] [address] Care Team Providers Care Traveling Passenger Agent Name Role Phone Yisel Marroquin MD Primary Care Provider Unavail able Encounter Details Date Type Department Care Team (Late st Contact Info) Description 01/05/2019 Notes [place] [address] Sidra Del Toro, MUSIC ENGINEER Social History Tobacco Use Types Packs/Day [...] filedocumented in this encounter Care Teams Traveling Passenger Agent Relationship Specialty Start Date End Date Yisel Marroquin MD PCP - General 11/13/18 03/05/19 documented as of this encounter
--- OUTSIDE RECORDS SUMMARY | 2024-08-15 13:35 | XMS_ITS | Encounter Summary ---
[place] [address] Care Team Providers Care Tractor Trailer Mechanic Name Role Phone Yisel Marroquin MD Primary Care Provider Unavail able Reason for Visit * Reason Comments Medication Refill Encounter Details Date Type Department Care Team (Late st Contact Info) Description 06/15/2019 Refill Primary Care at [facility] 10 [place] [phone] Yisel Marroquin MD Social History Tobacco Use [...] encounter Miscellaneous Notes * Telephone Encounter - [place] dimas, Arjun - 06/18/2019 12:47 PM EST [...] filedocumented in this encounter Care Teams Tractor Trailer Mechanic Relationship Specialty Start Date End Date Yisel Marroquin MD PCP - General General Internal Medicine 03/06/19 0 documented as of this encounter
--- OUTSIDE RECORDS SUMMARY | 2024-08-15 13:35 | XMS_ITS | Encounter Summary ---
[place] [address] Care Team Providers Care Public Transit Bus Driver Name Role Phone Yisel Marroquin MD Primary Care Provider Unavail able Encounter Details Date Type Department Care Team (Late st Contact Info) Description 05/04/2019 Telephone Primary Care at [facility] [place] [address] Fabby Freedman APRN Social History Tobacco Use [...] filedocumented in this encounter Care Teams Public Transit Bus Driver Relationship Specialty Start Date End Date Yisel Marroquin MD PCP - General General Internal Medicine 03/06/19 0 documented as of this encounter
--- OUTSIDE RECORDS SUMMARY | 2024-08-15 13:35 | XMS_ITS | Encounter Summary ---
Author Organization [facility] [place] [address] Care Team Providers Care Territory Account Representative Name Role Phone Yisel Marroquin MD Primary Care Provider Unavail able Reason for Visit * Diagnostic Test (Routine) - Closed Specialty Diagnoses / Procedures Referred By Vanita dimas Referred To Contact Radiology Diagnoses Long-term use of high-risk medication Other osteoporosis without current pathological fracture Procedures DXA Central-Spine, Hip, And/Or Whole Body (Generic) Yisel Marroquin MD 10 [place] [address] [facility] Rad Xray [address] [place] [phone] Referral ID Status Reason Start Date Expiration Date V isits Requested Visits Authorized [id number] Closed Specialty Service Requested 02/07/2019 02/07/2020 1 1 Encounter Details Date Type Department Care Team (Latest Contact Info) Description 02/20/2019 10:00 AM EDT Ancillary Procedure Radiology D[facility] at [facility] at [address] [address] Yisel Marroquin MD Long-term use [...] BMD measurements and plots are available in [employer] under the imaging tab. Paper copies will be sent to providers without [employer] access. If you have received this report without the data sheet and do not have access to [employer], please contact Radiology Track Repairer Helper at [phone] Tuesday thru Tuesday 8am-4pm. Thank you for letting us participate in the care of this patient. For questions regarding this report, please contact the number below. ? Electronically signed by: Rinku Wilkins [facility] ([phone]), at 02/20/2019 10:58 AM Narrative 02/20/2019 10:58 AM EDT EXAMINATION: DXA CENTRAL-SPINE, HIP, AND/OR WHOLE BODY (GENERIC) CLINICAL HISTORY: Hx bariatric surgery amd long line teamster PPI use, rec by gen surg TECHNIQUE: [...] (GENERIC) CLINICAL HISTORY: Hx bariatric surgery amd fpc PPI use, rec by gensurg TECHNIQUE: Scans [...] copies will be sent to providers without [employer] access.If you have received this report without the data sheet and do not haveaccess to [employer], please contact Radiology Track Repairer Helper at [phone] Tuesday thruFriday 8am-4pm. Thank you for letting us participate in the care of this patient. Forquestions regarding this report, please contact the number below. Electronically signed by: Rinku Wilkins [facility]([phone]), at 02/20/2019 10:58 AM Yisel Marroquin MD IMG DEXA ORDERABLES documented in this encounter Visit Diagnoses Diagnosis Long-term use of high-risk medication Other osteoporosis without current pathological fracture documented in this encounter Care Teams Territory Account Representative Relationship Specialty Start Date End Date Yisel Marroquin MD PCP - General 11/13/18 03/05/19 documented as of this encounter
--- OUTSIDE RECORDS SUMMARY | 2024-08-15 13:35 | XMS_ITS | Encounter Summary ---
[place] [address] Care Team Providers Care Vocal Teacher Name Role Phone Yisel Marroquin MD Primary Care Provider Unavail able Reason for Visit * Reason Comments Medication Refill Encounter Details Date Type Department Care Team (Late st Contact Info) Description 11/26/2019 Refill Primary Care at [facility] 10 [place] [phone] Yisel Marroquin MD Social History Tobacco Use [...] on filedocumented in this encounter Care Teams Vocal Teacher Relationship Specialty Start Date End Date Yisel Marroquin MD PCP - General General Internal Medicine 03/06/19 5/14/2 0 documented as of this encounter
--- OUTSIDE RECORDS SUMMARY | 2024-08-15 13:35 | XMS_ITS | Encounter Summary ---
Author Organization [facility] [place] [address] Care Team Providers Care Mold Making Plastics Sheets Supervisor Name Role Phone Yisel Marroquin MD Primary Care Provider Unavail able Reason for Visit * Reason Comments Follow-up Encounter Details Date Type Department Care Team (Late st Contact Info) Description 05/04/2019 2:00 PM EDT Office Visit Primary Care [place] [phone] Yisel Marroquin MD Asthma with acute exacerbation, [...] disorder documented in this encounter Care Teams Mold Making Plastics Sheets Supervisor Relationship Specialty Start Date End Date Yisel Marroquin MD PCP - General General Internal Medicine 03/06/1912/05/ 0 documented as of this encounter
--- OUTSIDE RECORDS SUMMARY | 2024-08-15 13:35 | XMS_ITS | Encounter Summary ---
[place] [address] Care Team Providers Care Winder Fixer Name Role Phone Yisel Marroquin MD Primary Care Provider Unavail able Encounter Details Date Type Department Care Team (Late st Contact Info) Description 06/01/2019 Telephone Primary Care at [facility] 10 [place] [address] Devi Mccormick RN Social History Tobacco Use [...] on filedocumented in this encounter Care Teams Winder Fixer Relationship Specialty Start Date End Date Yisel Marroquin MD PCP - General General Internal Medicine 03/06/19 0 documented as of this encounter
--- OUTSIDE RECORDS SUMMARY | 2024-08-15 13:35 | XMS_ITS | Encounter Summary ---
[place] [address] Care Team Providers Care Delivery Mgr Name Role Phone Yisel Marroquin MD Primary Care Provider Unavail able Reason for Visit * Reason Onset Date Comments Medication Refill 06/04/2019 Encounter Details Date Type Department Care Team (Late st Contact Info) Description 06/04/2019 Refill Primary Care at [facility] 10 [place] [phone] Yisel Marroquin MD Gastroesophageal reflux disease, esophagitis [...] Comments: rx was sent on 06/01/19. Pharmacy: [facility] * Telephone Encounter - Shannon Chung RN - 06/04/2019 9:29 AM EST PCP: Yisel Marroquin MD Medication: omeprazole 20mg BID Last Appt: 05/04/2019 Future Appt: 08/06/2019 Comments: pharmacy called stating that they are missing rx for omeprazole. Need 28 worth of rx. Last prescribed 10/19/18 1 year worth. Rest of rx sent Pharmacy: [facility] documented in this encounter Plan of Treatment Not on file documented as of this encounter Visit Diagnoses Diagnosis Gastroesophageal reflux disease, esophagitis presence not specified Asthma with acute exacerbation, unspecified asthma severity, unspecified whether persistent documented in this encounter Care Teams Delivery Mgr Relationship Specialty Start Date End Date Yisel Marroquin MD PCP - General General Internal Medicine 03/06/19 0 documented as of this encounter
--- OUTSIDE RECORDS SUMMARY | 2024-08-15 13:35 | XMS_ITS | Encounter Summary ---
Author Organization [facility] [place] [address] Care Team Providers Care Career And Guidance Counselor Name Role Phone Hoang Castellanos APRN Primary Care Provider [phone] Reason for Visit * Reason Onset Date Comments Medication Refill Medication Refill 12/28/2019 Encounter Details Date Type Department Care Team (Late st Contact Info) Description 12/24/2019 Refill Primary Care at [facility] [address] [facility] [place] [phone] Yisel Marroquin MD CAD (coronary artery disease) [...] Coronary atherosclerosis of unspecified type of vessel, [place] or graft documented in this encounter Additional Health Concerns Infection Onset Date Last Indicated Resolved Time Rule Out COVID-19 04/03/2020 04/03/2020 04/03/2020 11:21 AM EDT Rule Out COVID-19 07/03/2020 07/03/2020 07/03/2020 4:30 PM EST documented as of this encounter Care Teams Career And Guidance Counselor Relationship Specialty Start Date End Date Hoang Castellanos, FOUNDER / CEO [address] [place] [address] PCP - General Family Medicine 03/12/20 documented as of this encounter
--- OUTSIDE RECORDS SUMMARY | 2024-08-15 13:35 | XMS_ITS | Encounter Summary ---
Author Organization [facility]ly [facility] [place] [address] Care Team Providers Care Sales Assistants And Salespersons Name Role Phone Mark Holguin APRN Primary Care Provider [phone] Encounter Details Date Type Department Care Team (Late st Contact Info) Description 01/01/2020 Orders Only Primary Care at [facility] [address] [facility] [place] [address] Mark Holguin APRN [address] [place] [address] Essential hypertension; Hypothyroidism, acquired; Type 2 diabetes [...] Spec In Lab / APD Mark Holguin CEMENT AND CONCRETE PLANT WORKER CHEMISTRY ORDERABLES LABORATORY [address] [place] [address] * (ABNORMAL) Comprehensive metabolic panel (non-fasting) (01/01/2020 [...] of body mass or the acutely ill. [email or web address] eGFR 81 >=60 mL/min/1. 73 m?? LABORATORY Comment: The eGFR was calculated using the CKD-EPI equation. As with all creatinine based estimates of kidney function, eGFR values calculated with the CKD-EPI equation are not accurate in patients with acute kidney failure, extremes of body mass or the acutely ill. [email or web address]/[facility] Blood specimen (specimen) 01/01/2020 8:33 AM EDT 01/01/2020 11:13 AM EDT Narrative Resulting Agency Comment Spec In Lab / APD Mark Holguin APRN CHEMISTRY ORDERABLES Performing Organization Address [facility] Co de Phone Number LABORATORY [address] [place] [address] * (ABNORMAL) Hemoglobin A1c (01/01/2020 8:33 AM EDT) Hemoglobin A1c 6.0(H) 4.3 - 5.6 % LABORATORY Estimated Average Glucose 126 mg/dL LABORATORY Blood specimen (specimen) 01/01/2020 8:33 AM EDT 01/01/2020 11:11 AM EDT Narrative Resulting Agency Comment Spec In Lab / APD Mark Holguin APRN CHEMISTRY ORDERABLES Performing Organization Address [facility] Co de Phone Number LABORATORY [address] [facility] [place] [address] documented in this encounter Visit Diagnoses Diagnosis Essential hypertension Unspecified essential hypertension Hypothyroidism, acquired Unspecified hypothyroidism Type 2 diabetes mellitus without complication, without long-term current use of insulin documented in this encounter Care Teams Sales Assistants And Salespersons Relationship Specialty Start Date End Date Mark Holguin, CEMENT AND CONCRETE PLANT WORKER [address] [place] [address] PCP - General Family Medicine 12/07/19 03/11/20 documented as of this encounter
--- OUTSIDE RECORDS SUMMARY | 2024-08-15 13:35 | XMS_ITS | Encounter Summary ---
Author Organization [facility] [place] [address] Care Team Providers Care Nib Assembler Name Role Phone Yisel Marroquin MD Primary Care Provider Unavail able Reason for Visit * Reason Comments Follow-up Encounter Details Date Type Department Care Team (Latest Contact Info) Description 09/24/2019 1:30 PM EST Office Visit Primary Care at [facility] [place] [address] Yisel Marroquin MD Need for [...] your doctor if you can take an zpnq-phm-izqlplc pain medicine, such as acetaminophen (Tylenol), ibuprofen [...] Where can you learn more? Visit our [employer] Mobile Apps information library at [email or web address] You can also view health information on [employer], your personal patient account. Log in or sign uptoday. Enter Y571 in the search box to learn more about Sacroiliac Joint Pain: Care Instructions. Current as of: January 17, 2019 Content Version: 12.3 ?? [id number] [employer]. Care instructions adapted under license by [facility]. If you have questions about a medical condition or this instruction, always ask your healthcare professional. [employer] disclaims any warranty or liability for your [...] for you. How to do the exercises Zdjr-vc-tysrf stretch 1. Do not do the fsfi-nn-hcpka exercise if it causes or increases back [...] Where can you learn more? Visit our [employer] Mobile Apps information library at [email or web address] You can also view health information on [employer], your personal patient account. Log in or sign uptoday. Enter T635 in the search box to learn more about Sacroiliac Pain: Exercises. Current as of: January 17, 2019 Content Version: 12.3 ?? 8936-3975 [employer]. Care instructions adapted under license by [facility]. If you have questions about a medical condition or this instruction, always ask your healthcare professional. [employer] disclaims any warranty or liability for your [...] use good posture. Follow-up care is a ramírze part of your treatment and safety. Be [...] your doctor if you can take an rrne-ivj-enevthp pain medicine, such as acetaminophen (Tylenol), ibuprofen [...] Where can you learn more? Visit our [employer] Mobile Apps information library at [email or web address] Mobile Appsinfo You can also view health information on [employer], your personal patient account. Log in or sign uptoday. Enter Y571 in the search box to learn more about Sacroiliac Joint Pain: Care Instructions. Current as of: January 17, 2019 Content Version: 12.3 ?? [id number] [employer]. Care instructions adapted under license by [facility]. If you have questions about a medical condition or this instruction, always ask your healthcare professional. [employer] disclaims any warranty or liability for your [...] to do In Shape program with her [employer] program. Would like shingles and flu vaccine Patient states they do not need any refills at this time. Flu Vaccine 5714-3979 Age Considerations Vaccine Name Adult [x] 6 [...] had any of the following: History of Guillian-Phillipsport Syndrome, allergy to eggs, or allergicreaction to [...] (Reflex Direct LDL) (12/27/2019 7:27 AM EDT) [facility] Cholesterol, Total 114 mg/dL [facility] Comment: Lower Risk: <200 mg/dL Average Risk: 200-239 mg/dL Higher Risk: >cy=144 mg/dL Triglyceride 102 mg/dL [facility] Comment: Average Risk/Lower Risk: <150 mg/dL Borderline High Risk: 150-199 mg/dL High Risk: 200-499 mg/dL Very High Risk: >by=621 mg/dL HDL Cholesterol 38 mg/dL [facility] Comment: Males: ?? Higher Risk: <40 mg/dL Females: ?? HIgher Risk: <50 mg/dL LDL Cholesterol 56 mg/dL [facility] Comment: Lowest Risk: <100 mg/dL Lower Risk: 100-129 mg/dL Borderline High Risk: 130-159 mg/dL High Risk: 160-189 mg/dL Very High Risk: >aq=341 mg/dL Cholesterol/HDL Ratio 3.0 ratio [facility] Lipid Interpretation See Note [facility] Comment: Lipid management should be guided by a patient? s ASCVD risk, goals and preferences. ACC/AHA Guidelines recommend high intensity statin if clinical ASCVD or LDL greater than or equal to 190 mg/dL. http://Liazon.com/IFR-WDL-Qboqiqfou Adults aged 40-75 with LDL 70-189 mg/dL should have their 10 year ASCVD risk estimated with the ACC/AHA ASCVD risk automotive collision estimator http://tools.acc.org/VHMJK-Eytk-Jnnkbrkyt/ Statin should be discussed if risk greater [...] MD CHEMISTRY ORDERABLES [facility] [address] [place] [address] * Magnesium (12/27/2019 7:27 AM EDT) Magnesium 0.80 0.69 - 1.07 mmol/L [facility] Blood specimen (specimen) 12/27/2019 7:27 AM EDT 12/27/2019 8:44 AM EDT Narrative Resulting Agency Comment Spec In Lab / APD Yisel Marroquin MD CHEMISTRY ORDERABLES [facility] [address] [place] [address] documented in this encounter Visit Diagnoses Diagnosis [...] type documented in this encounter Care Teams Nib Assembler Relationship Specialty Start Date End Date Yisel Marroquin MD PCP - General General Internal Medicine 03/06/19 0 documented as of this encounter
--- OUTSIDE RECORDS SUMMARY | 2024-08-15 13:35 | XMS_ITS | Encounter Summary ---
Author Organization [facility] [place] [address] Care Team Providers Care Black Top Spreader Machine Operator Name Role Phone Yisel Marroquin MD Primary Care Provider Unavail able Reason for Visit * Reason Onset Date Comments Medication Refill 05/18/2019 Encounter Details Date Type Department Care Team (Late st Contact Info) Description 05/18/2019 Refill Primary Care at [facility] [place] [phone] Yisel Marroquin MD Social History Tobacco Use [...] on filedocumented in this encounter Care Teams Black Top Spreader Machine Operator Relationship Specialty Start Date End Date Yisel Marroquin MD PCP - General General Internal Medicine 03/06/19 5 0 documented as of this encounter
--- OUTSIDE RECORDS SUMMARY | 2024-08-15 13:35 | XMS_ITS | Encounter Summary ---
Author Organization [facility] Address [facility] [place] [address] Care Team Providers Care Patient Manager Name Role Phone Yisel Marroquin MD Primary Care Provider Unavail able Encounter Details Date Type Department Care Team (Latest Contact Info) Description 02/07/2019 12:30 PM EDT Laboratory Appointment Laboratory at [facility] [place] [address] Disorder of iron metabolism; Status post bariatric [...] In Lab / APD Sidra Del Toro REFINERY OPERATOR HELPER CRACKING UNIT CHEMISTRY ORDERAB LES [facility] [address] [place] [address] * Folate, serum (02/07/2019 12:41 PM EDT) Folate 8.6 4.8 - 24.2 ng/mL [facility] Blood specimen (specimen) 02/07/2019 12:41 PM EDT 02/07/2019 3:55 PM EDT Narrative Resulting Agency Comment Spec In Lab / APD Sidra Bray Alverto SAM CHEMISTRY ORDERAB LES Performing Organization Address [facility]/ZIP Co de Phone Number [facility] [place] [address] * Vitamin D, 25-Hydroxy (02/07/2019 12:41 PM EDT) Vitamin D Total 25 OH 36 30 - 100 ng/mL [facility] Comment: Deficient <10 ng/mL Insufficient 10 to 29 ng/mL Sufficient 30 to 100 ng/mL Potential Intoxication >100 ng/mL According to the US National Osteoporosis Foundation, Vitamin D concentrations >30 ng/mL are sufficient to protect bone health. ??The National Kidney Foundation has similarly stated that patients with Vitamin D concentrations <30ng/mL should be considered to be insufficient or deficient. http://Demibooks/nkf-guidelines http://[employer]/nejm-VitD The IDS iSYS Vitamin D Immunoassay detects both 25-OH Vitamin D2 and 25-OH Vitamin D3, but only a total Vitamin D concentration is reported. Blood specimen (specimen) 02/07/2019 12:41 PM EDT 02/08/2019 7:27 AM EDT Narrative Resulting Agency Comment Spec In Lab / APD Sidra T Alverto VARGAS CHEMISTRY ORDERAB LES Performing Organization Address [facility] Co de Phone Number [facility] [place] [address] * Vitamin B1, whole blood (02/07/2019 12:41 PM EDT) Vit B1 Lvl Wb (NOVEMBER) 128 70 - 180 nmol/L [facility] Comment: ADDITIONAL INFORMATION This test was developed and its performance characteristics determined by [facility] in a manner consistent with CLIA requirements. This test has not been cleared or approved by the U.S. Food and Drug Administration. Test Performed by: [facility] [address] [place] [address] Blood specimen (specimen) 02/07/2019 12:41 PM EDT 02/07/2019 5:37 PM EDT Narrative Resulting Agency Comment Spec In Lab / APD Sidra Del Toro REFINERY OPERATOR HELPER CRACKING UNIT LAB SEND OUT ORDE RABLES [facility] [employer] [facility]AT[facility] [address] [place] [address] * Vitamin B12 (02/07/2019 12:41 PM EDT) Vitamin B12 603 232 - 1,245 pg/mL [facility] Blood specimen (specimen) 02/07/2019 12:41 PM EDT 02/07/2019 3:55 PM EDT Narrative Resulting Agency Comment Spec In Lab / APD Sidra Del Toro REFINERY OPERATOR HELPER CRACKING UNIT CHEMISTRY ORDERAB LES Performing Organization Address City/[facility]/ZIP Co de Phone Number [facility] [address] * (ABNORMAL) PTH (02/07/2019 12:41 PM EDT) Parathyroid Hormone 71(H) 15 - 65 pg/mL [facility] Blood specimen (specimen) 02/07/2019 12:41 PM EDT 02/07/2019 3:55 PM EDT Narrative Resulting Agency Comment Spec In Lab / APD Sidra Del Toro REFINERY OPERATOR HELPER CRACKING UNIT CHEMISTRY ORDERAB LES Performing Organization Address City/[facility]/ZIP Co de Phone Number [facility] [place] [address] * (ABNORMAL) Ferritin (02/07/2019 12:41 PM EDT) Ferritin 19(L) 30 - 400 ng/mL [facility] Comment: Pediatric reference ranges not verified at [facility], interpret with caution. Reference ranges for females greater than 50 years of age approach values for men, i.e., 30-400 ng/mL. Blood specimen (specimen) 02/07/2019 12:41 PM EDT 02/07/2019 2:05 PM EDT Narrative Resulting Agency Comment Spec In Lab / APD Sidra Del Toro REFINERY OPERATOR HELPER CRACKING UNIT CHEMISTRY ORDERAB LES Performing Organization Address City/[facility] Co de Phone Number LABORATORY [address] [place] [address] * (ABNORMAL) Iron and TIBC (02/07/2019 12:41 PM EDT) Iron 64 30 - 150 mcg/dL LABORATORY TIBC 351 250 - 450 mcg/dL LABORATORY Iron Saturation 18(L) 20 - 50 % LABORATORY Blood specimen (specimen) 02/07/2019 12:41 PM EDT 02/07/2019 2:05 PM EDT Narrative Resulting Agency Comment Spec In Lab / APD Sidra Del Toro REFINERY OPERATOR HELPER CRACKING UNIT CHEMISTRY ORDERAB LES Performing Organization Address [facility] Co de Phone Number LABORATORY [address] [place] [address] documented in this encounter Visit Diagnoses Diagnosis Disorder of iron metabolism Other disorders of iron metabolism Status post bariatric surgery Bariatric surgery status Intestinal malabsorption, unspecified type Gastroesophageal reflux disease, esophagitis presence not specified Vitamin D deficiency Unspecified vitamin D deficiency History of diabetes mellitus Personal history of other endocrine, metabolic, and immunity disorders documented in this encounter Care Teams Patient Manager Relationship Specialty Start Date End Date Yisel Marroquin MD PCP - General 11/13/18 03/05/19 documented as of this encounter
--- OUTSIDE RECORDS SUMMARY | 2024-08-15 13:36 | XMS_ITS | Encounter Summary ---
[place] [address] Care Team Providers Care Security Incident Handler Name Role Phone Yisel Marroquin MD Primary Care Provider Unavail able Encounter Details Date Type Department Care Team (Late st Contact Info) Description 01/04/2018 Orders Only Radiology and Cardiology Results [address] [place] [address] Apd Conversion, Results Provider, Social [...] Lab) [facility] CON[facility] LDL Cholesterol 63(Last Pattern Grader al Lab) [facility] HDL Cholesterol 40(Last Pattern Grader al Lab) 40 - 60 [facility] Triglyceride 154(ExtH) 30 - 150 [facility] CONVERSION Cholesterol, Total 134(Exter nal Lab) 50 - 200 [facility] CON[facility] 01/04/2018 Results Provider Apd Conversion MD JASON ESTRELLA ORDERABLES [facility] documented in this encounter Visit Diagnoses Not on filedocumented in this encounter Care Teams Security Incident Handler Relationship Specialty Start Date End Date Yisel Marroquin MD PCP - General 11/13/18 03/05/19 documented as of this encounter
--- OUTSIDE RECORDS SUMMARY | 2024-08-15 13:36 | XMS_ITS | Encounter Summary ---
Author Organization [facility] [place] [address] Care Team Providers Care Machine Repairman Name Role Phone Aman Lawrence APRN Primary Care Provider [phone] Encounter Details Date Type Department Care Team (Late st Contact Info) Description 01/19/2017 Orders [place] [address] Kenya Villanueva, RN Social History Tobacco Use [...] filedocumented in this encounter Care Teams Machine Repairman Relationship Specialty Start Date End Date Aman Lawrence [place] [address] PCP - General 06/16/10 06/27/18 documented as of this encounter
--- OUTSIDE RECORDS SUMMARY | 2024-08-15 13:36 | XMS_ITS | Encounter Summary ---
Author Organization [facility] [place] [address] Care Team Providers Care Account Management Assistant Name Role Phone Yisel Marroquin MD Primary Care Provider Unavail able Encounter Details Date Type Department Care Team (Late st Contact Info) Description 02/28/2018 Abstract [facility] Conversion Results [address] [place] [address] Apd Conversion, Flowsheet Provider, Social History Tobacco [...] filedocumented in this encounter Care Teams Account Management Assistant Relationship Specialty Start Date End Date Yisel Marroquin MD PCP - General 11/13/18 03/05/19 documented as of this encounter
--- OUTSIDE RECORDS SUMMARY | 2024-08-15 13:36 | XMS_ITS | Encounter Summary ---
Author Organization [facility] Address [facility] [address] Care Team Providers Care Traffic Engineer Name Role Phone Yisel Marroquin MD Primary Care Provider Unavail able Encounter Details Date Type Department Care Team (Late st Contact Info) Description 06/27/2018 Abstract [facility] Conversion Results [address] [place] [address] Apd Conversion, Flowsheet Provider, Social History Tobacco [...] filedocumented in this encounter Care Teams Traffic Engineer Relationship Specialty Start Date End Date Ysiel Marroquin MD PCP - General 11/13/18 03/05/19 documented as of this encounter
--- OUTSIDE RECORDS SUMMARY | 2024-08-15 13:36 | XMS_ITS | Encounter Summary ---
[place] [address] Care Team Providers Care Parts Technician Name Role Phone Yisel Marroquin MD Primary Care Provider Unavail able Encounter Details Date Type Department Care Team (Late st Contact Info) Description 01/04/2019 Telephone Primary Care at [facility] [address] [place] [address] Shannon Cruz, RN Social History Tobacco Use [...] filedocumented in this encounter Care Teams Parts Technician Relationship Specialty Start Date End Date Yisel Marroquin MD PCP - General 11/13/18 03/05/19 documented as of this encounter
--- OUTSIDE RECORDS SUMMARY | 2024-08-15 13:36 | XMS_ITS | Encounter Summary ---
Author Organization [facility] [place] [address] Care Team Providers Care Aircraft Engine Cylinder Mechanic Name Role Phone Yisel Marroquin MD Primary Care Provider Unavail able Encounter Details Date Type Department Care Team (Late st Contact Info) Description 02/07/2017 Orders Only Radiology and Cardiology Results [address] [place] [address] Apd Conversion, Results Provider, Social [...] filedocumented in this encounter Care Teams Aircraft Engine Cylinder Mechanic Relationship Specialty Start Date End Date Yisel Marroquin MD PCP - General 11/13/18 03/05/19 documented as of this encounter
--- OUTSIDE RECORDS SUMMARY | 2024-08-15 13:36 | XMS_ITS | Encounter Summary ---
Author Organization [facility] Address [facility] [place] [address] Care Team Providers Care Circulation Sales Representative Name Role Phone Yisel Marroquin MD Primary Care Provider Unavail able Encounter Details Date Type Department Care Team (Late st Contact Info) Description 03/28/2018 Abstract [facility] Conversion Results [address] [place] [address] Apd Conversion, Flowsheet Provider, Social History Tobacco [...] on filedocumented in this encounter Care Teams Circulation Sales Representative Relationship Specialty Start Date End Date Yisel Marroquin MD PCP - General 11/13/18 03/05/19 documented as of this encounter
--- OUTSIDE RECORDS SUMMARY | 2024-08-15 13:36 | XMS_ITS | Encounter Summary ---
Author Organization [facility] Address [facility] [place] [address] Care Team Providers Care Health Care / Medical Job Titles Name Role Phone Yisel Marroquin MD Primary Care Provider Unavail able Encounter Details Date Type Department Care Team (Late st Contact Info) Description 02/14/2018 Abstract [facility] Conversion Results [address] [place] [address] Apd Conversion, Flowsheet Provider, Social History Tobacco [...] filedocumented in this encounter Care Teams Health Care / Medical Job Titles Relationship Specialty Start Date End Date Yisel Marroquin MD PCP - General 11/13/18 03/05/19 documented as of this encounter
--- OUTSIDE RECORDS SUMMARY | 2024-08-15 13:36 | XMS_ITS | Encounter Summary ---
Author Organization [facility] [place] [address] Care Team Providers Care Supervisor Rework Name Role Phone Aman Lawrence APRN Primary Care Provider [phone] Reason for Visit * Reason Onset Date Comments Medication Refill 04/25/2017 Encounter Details Date Type Department Care Team (Late st Contact Info) Description 04/25/2017 Refill Cardiology at [address] [address] Freddy Mejias MD [facility] [place] [address] Medication Refill Social History Tobacco Use Types [...] filedocumented in this encounter Care Teams Supervisor Rework Relationship Specialty Start Date End Date Aman Lawrence [place] [address] PCP - General 06/16/10 06/27/18 documented as of this encounter
--- OUTSIDE RECORDS SUMMARY | 2024-08-15 13:36 | XMS_ITS | Encounter Summary ---
Author Organization [facility] [place] [address] Care Team Providers Care Phototypesetting Equipment Monitor Name Role Phone Yisel Marroquin MD Primary Care Provider Unavail able Reason for Visit * Reason Onset Date Comments Medication Refill 01/04/2019 Encounter Details Date Type Department Care Team (Late st Contact Info) Description 01/04/2019 Refill Primary Care at [facility] [address] [place] [phone] Yisel Marroquin MD CAD (coronary artery disease) [...] Coronary atherosclerosis of unspecified type of vessel, asa'[place] or graft documented in this encounter Care Teams Phototypesetting Equipment Monitor Relationship Specialty Start Date End Date Yisel Marroquin MD PCP - General 11/13/18 03/05/19 documented as of this encounter
--- OUTSIDE RECORDS SUMMARY | 2024-08-15 13:36 | XMS_ITS | Encounter Summary ---
Author Organization [facility] [place] [address] Care Team Providers Care Foundation Coordinator Name Role Phone Yisel Marroquin MD Primary Care Provider [phone] Reason for Visit * Reason Comments Dysphagia Fever Encounter Details Date Type Department Care Team (Late st Contact Info) Description 09/08/2018 3:39 PM EST - 09/08/2018 11:11 PM [place] [id number] Meena English MD [facility] [place] [address] Pneumonia due to organism Discharge Disposition: Home [...] y.o. 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, obesity status post gastric [...] Electronically signed by: JASMINE WATSON [facility] ([phone]), at 09/08/2018 10:57 PM 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 BARN AND PROPERTY MANAGER TECHNIQUE: CT neck performed after the intravenous [...] (GENERIC) CLINICAL HISTORY: Dysphagia, concern for possible BARN AND PROPERTY MANAGER TECHNIQUE: CT neck performed after the intravenous [...] (Bezet) 391 ms MUSE SYSTEM Calculated P Marion 46 degrees MUSE SYSTEM Calculated R Marion 52 degrees MUSE SYSTEM Calculated T Marion 34 degrees MUSE SYSTEM INTERPRETATION Marked sinus bradycardia Abnormal ECG When compared with ECG of 10-MAY-2016 07:53, No significant change was found Confirmed by MD Manish, Karl ([id number]) on 09/08/2018 9:41:34 PM MUSE SYSTEM 09/08/2018 7:26 PM EST 09/08/2018 9:41 PM EST Meena English MD ECG ORDERABLES MUSE SYSTEM * (ABNORMAL) Differential, Automated (09/08/2018 5:01 PM EST) Neutrophil % 67.7 % [facility] Neutrophil Absolute 6.27(H) 1.70 - 6.10 x10(3)/mc L [facility] Lymph % 23.5 % [facility] Lymphocytes Abs 2.2 0.9 - 3.2 x10(3)/ L [facility] Monocyte % 7.0 % [facility] Monocyte Abs 0.6 0.3 - 0.9 x10(3)/ L [facility] Eos % 0.6 % [facility] Eosinophils Abs 0.1 0.0 - 0.4 x10(3)/ L [facility] Basophil % 0.8 % [facility] Baso Absolute 0.1 0.0 - 0.1 x10(3)/ L [facility] [...] Absolute 0.04 0.00 - 0.04 x10(3)/mc L [facility] Blood specimen (specimen) 09/08/2018 5:01 PM EST 09/08/2018 5:01 PM EST Narrative Resulting Agency Comment Spec In Lab Gerald Benton MD HEMATOLOGY GUS DRAEK Performing Organization Address City/[facility]/ZIP Co de Phone Number [facility] [place] [address] * (ABNORMAL) Hemogram (09/08/2018 5:01 PM EST) White Blood Cell 9.3 4.0 - 9.5 x10(3)/mc L [facility] Red Blood Cell 4.60 4.00 - 5.21 x10(6)/mc L [facility] Hemoglobin 14.2 11.7 - 15.5 gm/dL [facility] Hematocrit 44.9 35.7 - 45.8 % [facility] Mean Cell Volume 97.6(H) 82.6 - 94.4 fL [facility] Mean Cell Hemoglobin 30.9 27.1 - 32.0 pg [facility] Mean Cell Hemoglobin Concentration 31.6(L) 31.7 - 35.0 gm/dL [facility] Platelet 249 145 - 357 x10(3)/mc L [facility] RDW Standard Deviation 49.3(H) 37.0 - 46.0 [facility] RDW coefficient of variation 13.5 11.5 - 14.1 % [facility] Mean Platelet Volume 9.8 7.6 - 12.9 [facility] NRBC% auto 0.0 % [facility] NRBC Absolute 0.000 0.000 - 0.000 x10(3)/mc L [facility] Blood specimen (specimen) 09/08/2018 5:01 PM EST 09/08/2018 5:01 PM EST Narrative Resulting Agency Comment Spec In Lab Gerald DRAKE [facility] [place] [address] * (ABNORMAL) pro-Brain Natriuretic Peptide (09/08/2018 5:01 PM EST) NT-proBNP 347(H) <=125 pg/mL [facility] Blood specimen (specimen) 09/08/2018 5:01 PM EST 09/08/2018 5:01 PM EST Narrative Resulting Agency Comment Spec In Lab Meena English MD CHEMISTRY ORDERABLES [facility] [place] [address] * Troponin (09/08/2018 5:01 PM EST) Pathologist [facility] [place] Troponin-T <0.01 0.00 - 0.00 ng/mL [facility] Comment: The 99th percentile for Troponin T is less than 0.01 ng/mL, any detectable cTnT concentration using this assay should be considered elevated. According to the third universal definition of myocardial infarction the following criteria with a clinical presentation consistent with acute myocardial ischemia meets the diagnosis for a myocardial infarction (RI). Detection of a rise and/or fall of cTnT, with at least one value greater than the 99th percentile (> or = 0.01) and with at least one of the following ?? Symptoms of ischemia ?? New or presumed new significant EP-[id number]-B wave (ST-T) changes or new left bundle [...] additional sample may be indicated. Reference: Third Shannon Definition of Myocardial Infarction. Journal of the [place] [employer] 2012;60:1581-98 Blood specimen (specimen) 09/08/2018 5:01 PM EST 09/08/2018 5:01 PM EST Narrative Resulting Agency Comment Spec In Lab Meena English MD CHEMISTRY ORDERABLES [facility] [place] [address] * Basic Metabolic Panel (non-fasting) (09/08/2018 5:01 PM EST) Glucose 92 65 - 199 mg/dL [facility] Comment:Diabetes: >=200 mg/d L plus symptoms Blood Urea Nitrogen 9 8 - 18 mg/dL [facility] Creatinine 0.88 0.70 - 1.20 mg/dL [facility] Sodium 143 135 - 145 mmol/L [facility] Potassium 4.6 3.5 - 5.0 mmol/L [facility] Comment: Please note: ??Patients with WBC >100,000 may have falsely elevated Potassium levels. ??For accurate Potassium quantification in these patients send serum separator tube (gold top) for subsequent determinations. ??Contact the Clinical Chemistry Laboratory if there are any questions. Chloride 103 98 - 107 mmol/L [facility] Carbon Dioxide 30 22 - 31 mmol/L [facility] Anion Gap 10 5 - 15 mmol/L [facility] Calcium 9.9 8.5 - 10.5 mg/dL [facility] Est Glomerular Filtration Rate 72 >=60 mL/min/1. 73 m?? [facility] Comment: The eGFR was calculated using the CKD-EPI equation. As with all creatinine based estimates of kidney function, eGFR values calculated with the CKD-EPI equation are not accurate in patients with acute kidney failure, extremes of body mass or the acutely ill. http://Babytree/[facility] CITYnkf eGFR 84 >=60 mL/min/1. 73 m?? [facility] Comment: The eGFR was calculated using the CKD-EPI equation. As with all creatinine based estimates of kidney function, eGFR values calculated with the CKD-EPI equation are not accurate in patients with acute kidney failure, extremes of body mass or the acutely ill. http://Babytree/[facility] CITY[facility] Blood specimen (specimen) 09/08/2018 5:01 PM EST 09/08/2018 5:01 PM EST Narrative Resulting Agency Comment Spec In Lab Meena English MD CHEMISTRY ORDERABLES Performing Organization Address [facility] Co de Phone Number [facility] [place] [address] * Gold Tube HOLD (09/08/2018 5:01 PM EST) Gold Hold Sample in lab. [facility] Blood specimen (specimen) Venous Draw / Unknown 09/08/2018 5:01 PM EST 09/08/2018 5:02 PM EST Gerald Benton MD CHEMISTRY ORDER MORENO Performing Organization Address [facility] [place] [address] * Blue Tube HOLD (09/08/2018 5:01 PM EST) Blue Hold Sample in lab. [facility] Blood specimen (specimen) Venous Draw / Unknown 09/08/2018 5:01 PM EST 09/08/2018 5:03 PM EST Gerald Benton MD HEMATOLOGY GUS DRAKE Performing Organization Address [facility] de Phone Number [facility] [place] [address] * XR Chest PA & Lateral (Generic) (09/08/2018 4:30 PM EST) Anatomical Region Laterality Modality Chest N/A Digital Radiogra phy Impressions 09/08/2018 4:48 PM EST Suspect developing infiltrate left lower lobe. Thank you for letting us participate in the care of this patient. For questions regarding this report, please contact the number below. ? Electronically signed by: Rinku Wilkins [facility] ([phone]), at 09/08/2018 4:48 PM Narrative 09/08/2018 4:48 [...] Electronically signed by: Rinku Wilkins [facility]([phone]), at 09/08/2018 4:48 PM Meena English MD [...] Hill) documented in this encounter Care Teams Foundation Coordinator Relationship Specialty Start Date [place] [address] PCP - General General Internal Medicine 06/28/1810/24 documented as of this encounter
--- OUTSIDE RECORDS SUMMARY | 2024-08-15 13:36 | XMS_ITS | Encounter Summary ---
[place] [address] Care Team Providers Care Pipe Connector Name Role Phone Yisel Marroquin MD Primary Care Provider [phone] Reason for Visit * Reason Onset Date Comments Other 09/11/2018 Encounter Details Date Type Department Care Team (Late st Contact Info) Description 09/11/2018 Telephone [place] [phone] Sidra Del Toro, EXECUTIVE MANAGER Other Social History Tobacco Use Types Packs/Day [...] filedocumented in this encounter Care Teams Pipe Connector Relationship Specialty Start Date End Date Yisel [place] [address] PCP - General General Internal Medicine 06/28/1810/24 documented as of this encounter
--- OUTSIDE RECORDS SUMMARY | 2024-08-15 13:36 | XMS_ITS | Encounter Summary ---
Author Organization [facility] Address [facility] [place] [address] Care Team Providers Care Partner Marketing Manager Name Role Phone Yisel Marroquin MD Primary Care Provider Unavail able Encounter Details Date Type Department Care Team (Late st Contact Info) Description 03/29/2017 Abstract [place] Conversion Results [address] [place] [address] Apd Conversion, Flowsheet Provider, Social History Tobacco [...] on filedocumented in this encounter Care Teams Partner Marketing Manager Relationship Specialty Start Date End Date Yisel Marroquin MD PCP - General 11/13/18 03/05/19 documented as of this encounter
--- OUTSIDE RECORDS SUMMARY | 2024-08-15 13:36 | XMS_ITS | Encounter Summary ---
Author Organization [facility] [place] [address] Care Team Providers Care Edger Runner Name Role Phone Yisel Marroquin MD Primary Care Provider [phone] Encounter Details Date Type Department Care Team (Late st Contact Info) Description 09/19/2018 12:41 PM EST Anesthesia [place] [address] Francisco Javier Lord MD [facility] [place] [address] Anesthesia Record Procedure Summary Procedure Name Responsible [...] 1157; median cubital vein (antecubital fossa), right; fzeu-lcq-ktythl catheter system; 20 gauge; FABIANA Cartwright ; [...] Lord MD - 09/19/2018 2:42 PM EST [facility] [place] of Anesthesiology Post-procedure Note Patient: Jeannie Rico Procedure Summary Date: 09/19/18 Room / Location: [facility] / [facility] Anesthesia Start: 1241 Anesthesia Stop: 1304 Procedure: UPPER GASTROINTESTINAL ENDOSCOPY,WITH BIOPSY SINGLE OR MULTIPLE (WRVU 2.49) (N/A ) Diagnosis: (dysphagia - CONSULT) Surgeon: Tyron Mercado MD Responsible Provider: Francisco Javier Lord MD Anesthesia Type: MAC ASA Status: 3 All Anesthesia Providers: Anesthesiologist: Francisco Javier Lord MD TELECOMMUNICATIONS LINESWORKER: Jose F Mei CRNA Vitals Value Taken Time BP 129/117 09/19/2018 1:20 PM Temp Pulse Resp SpO2 95 % 09/19/2018 1:26 PM Pain Level Vitals shown include unvalidated device data. [facility] Level of Consciousness: Awake and Alert Pain [...] ??? Osteoporosis DEXA done at [facility] on 10/29/15: osteoporosis at the left hip T-3, and osteopenia of the spine T-1.9 ??? Atherosclerosis of [place] coronary artery of [place] heart without angina pectoris ??? Hypertension ??? [...] BIOPSY performed by Ken Sanders MD at [facility] ??? UPPER GI ENDOSCOPY, EXAM 12/04/2010 UPPER GI ENDOSCOPY performed by DEE WRIGHT at [facility] Social History Tobacco Use [...] Chronic pain ??? Lumbago ??? Atherosclerosis of [place] coronary artery of [place] heart without angina pectoris ??? Hypertension ??? [...] mL/hr documented in this encounter Care Teams Edger Runner Relationship Specialty Start Date End [place] [address] PCP - General General Internal Medicine 06/28/1810/24 documented as of this encounter
--- OUTSIDE RECORDS SUMMARY | 2024-08-15 13:36 | XMS_ITS | Encounter Summary ---
[place] [address] Care Team Providers Care Paper Wrapping Machine Operator Name Role Phone Yisel Marroquin MD Primary Care Provider Unavail able Reason for Visit * Reason Comments Rash Encounter Details Date Type Department Care Team (Late st Contact Info) Description 01/05/2019 10:45 AM EDT Office Visit Primary Care at [facility] [place] [phone] Yisel Marroquin MD Dermatitis Social History Tobacco [...] Diagnoses Dermatitis Yisel Marroquin MD Internal Medicine [facility] [place] documented in this encounter Plan of Treatment Not on file documented as of this encounter Visit Diagnoses Diagnosis Dermatitis Contact dermatitis and other eczema, due to unspecified cause documented in this encounter Care Teams Paper Wrapping Machine Operator Relationship Specialty Start Date End Date Yisel Marroquin MD PCP - General 11/13/18 03/05/19 documented as of this encounter
--- OUTSIDE RECORDS SUMMARY | 2024-08-15 13:36 | XMS_ITS | Encounter Summary ---
Author Organization [facility] Address [facility] [place] [address] Care Team Providers Care Parachute Folder Name Role Phone Yisel Marroquin MD Primary Care Provider [phone] Reason for Visit * Reason Onset Date Comments Pre Procedure Call 09/12/2018 MED STOP- urg ent surgery scheduled Encounter Details Date Type Department Care Team (Late st Contact Info) Description 09/12/2018 Telephone Cardiology at [address] [address] Freddy Mejias MD [facility] [address] Pre Procedure Call (MED STOP- urgent surgery [...] if ok, and if she needs bridging. [phone] Thank you documented in this encounter Plan of Treatment Not on file documented as of this encounter Visit Diagnoses Not on filedocumented in this encounter Care Teams Parachute Folder Relationship Specialty Start Date [place] [address] PCP - General General Internal Medicine 06/28/1810/24 documented as of this encounter
--- OUTSIDE RECORDS SUMMARY | 2024-08-15 13:36 | XMS_ITS | Encounter Summary ---
Author Organization [facility] [place] [address] Care Team Providers Care Web Search Evaluator Name Role Phone Yisel Marroquin MD Primary Care Provider Unavail able Reason for Visit * Reason Onset Date Comments Medication Refill Medication Refill 12/05/2018 Encounter Details Date Type Department Care Team (Late st Contact Info) Description 12/04/2018 Refill Primary Care at [facility] [address] [facility] [address] Yisel Marroquin MD Social History Tobacco Use [...] filedocumented in this encounter Care Teams Web Search Evaluator Relationship Specialty Start Date End Date Yisel Marroquin MD PCP - General 11/13/18 03/05/19 documented as of this encounter
--- OUTSIDE RECORDS SUMMARY | 2024-08-15 13:36 | XMS_ITS | Encounter Summary ---
Author Organization [facility] Address [facility] [place] [address] Care Team Providers Care School Bus Driver/Mechanic Name Role Phone Yisel Marroquin MD Primary Care Provider Unavail able Encounter Details Date Type Department Care Team (Late st Contact Info) Description 01/13/2017 Abstract [place] Conversion Results [address] [place] [address] Apd Conversion, Flowsheet Provider, Social History Tobacco [...] filedocumented in this encounter Care Teams School Bus Driver/Mechanic Relationship Specialty Start Date End Date Yisel Marroquin MD PCP - General 11/13/18 03/05/19 documented as of this encounter
--- OUTSIDE RECORDS SUMMARY | 2024-08-15 13:36 | XMS_ITS | Encounter Summary ---
Author [place] [address] Care Team Providers Care Critical Care Physician Assistant Name Role Phone Yisel Marroquin MD Primary Care Provider Unavail able Encounter Details Date Type Department Care Team (Late st Contact Info) Description 01/04/2018 Orders Only Radiology and Cardiology Results [address] [place] [address] Apd Conversion, Results Provider, Social [...] Ratio (01/04/2018) Albumin / Creatinin Ratio, Urine 5.5(Ic Designer Custom al Lab) 0 - 29 KOR[place] FLOR[place] DAY CONVERSION Creatinine, Urine 38.0(Exter nal Lab) KORI FLOR[place] DAY CONVERSION Albumin, Urine 2.1(Ic Designer Custom al Lab) KORI FLOR[place] DAY CONVERSION 01/04/2018 Results Provider Apd Conversion URINE ORDERABLES KORI FLOR[place] DAY CONVERSION documented in this encounter Visit Diagnoses Not on filedocumented in this encounter Care Teams Critical Care Physician Assistant Relationship Specialty Start Date End Date Yisel Marroquin MD PCP - General 11/13/18 03/05/19 documented as of this encounter
--- OUTSIDE RECORDS SUMMARY | 2024-08-15 13:36 | XMS_ITS | Encounter Summary ---
[place] [address] Care Team Providers Care Qa Manager Name Role Phone Yisel Marroquin MD Primary Care Provider Unavail able Encounter Details Date Type Department Care Team (Late st Contact Info) Description 01/04/2018 Orders Only Radiology and Cardiology Results [address] [place] [address] Apd Conversion, Results Provider, Social [...] 116.9 KORI FLORES DAY CONVERSION Hemoglobin A1c 5.6(Staff Development Coordinator al Lab) 4.5 - 6.2 FLORES DAY CONVERSION 01/04/2018 Results Provider Apd Conversion MD JASON ESTRELLA ORDERABLES [facility]I [place]OR[place] DAY CONVERSION documented in this encounter Visit Diagnoses Not on filedocumented in this encounter Care Teams Qa Manager Relationship Specialty Start Date End Date Yisel Marroquin MD PCP - General 11/13/18 03/05/19 documented as of this encounter
--- OUTSIDE RECORDS SUMMARY | 2024-08-15 13:36 | XMS_ITS | Encounter Summary ---
Author Organization [facility] Address [facility] [place] [address] Care Team Providers Care Jelly Filter Tender Name Role Phone Yisel Marroquin MD Primary Care Provider Unavail able Encounter Details Date Type Department Care Team (Late st Contact Info) Description 11/22/2017 Abstract [place] Conversion Results [address] [place] [address] Apd Conversion, Flowsheet Provider, Social History Tobacco [...] on filedocumented in this encounter Care Teams Jelly Filter Tender Relationship Specialty Start Date End Date Yisel Marroquin MD PCP - General 11/13/18 03/05/19 documented as of this encounter
--- OUTSIDE RECORDS SUMMARY | 2024-08-15 13:36 | XMS_ITS | Encounter Summary ---
[place] [address] Care Team Providers Care Running Specialist Name Role Phone Aman Lawrence APRN Primary Care Provider [phone] Encounter Details Date Type Department Care Team (Late st Contact Info) Description 10/21/2017 Telephone [place] [address] Irasema Calvin Social History Tobacco Use Types [...] Sidra Del Toro. She said that her rn case management will have to bring her, so she and her rn case management are going to call back to schedule sometime next week. I will push her recall incase we don't hear from her. documented in this encounter Plan of Treatment Not on file documented as of this encounter Visit Diagnoses Not on filedocumented in this encounter Care Teams Running Specialist Relationship Specialty Start Date End Date Aman Lawrence APRN [address] [place] [address] PCP - General 06/16/10 06/27/18 documented as of this encounter
--- OUTSIDE RECORDS SUMMARY | 2024-08-15 13:36 | XMS_ITS | Encounter Summary ---
Author Organization [facility] [place] [address] Care Team Providers Care Imcu Nurse Name Role Phone Yisel Marroquin MD Primary Care Provider Unavail able Encounter Details Date Type Department Care Team (Late st Contact Info) Description 08/22/2017 Abstract [place] Conversion Results [address] [place] [address] Apd Conversion, Flowsheet Provider, Social History Tobacco [...] on filedocumented in this encounter Care Teams Imcu Nurse Relationship Specialty Start Date End Date Yisel Marroquin MD PCP - General 11/13/18 03/05/19 documented as of this encounter
--- OUTSIDE RECORDS SUMMARY | 2024-08-15 13:36 | XMS_ITS | Encounter Summary ---
[place] [address] Care Team Providers Care Language Therapist Name Role Phone Aman Lawrence APRN Primary Care Provider [phone] Encounter Details Date Type Department Care Team (Latest Contact Info) Description 12/09/2016 Multidisciplinary Ca re Committee [place] [address] Sidra Del Toro APRN Social History Tobacco [...] attendance: Evaluation by a member of the [facility] Bariatric Surgery Program previously: Vivi Del Toro/ Jing Darden Case presentation by: Dr Wright Staff present at today's meeting: Kasia Wright MD, Rn Homecare, Skinny Gomez MD, Meena Pena MD, Tamar [...] MD at [facility] ??? UPPER GI ENDOSCOPY, EXAM 12/04/2010 UPPER GI ENDOSCOPY performed by KASIA WRIGHT at [facility] Plan of care: no further testing indicated, pain is attributed to being musculoskeletal in nature. documented in this encounter Plan of Treatment Not on file documented as of this encounter Visit Diagnoses Not on filedocumented in this encounter Care Teams Language Therapist Relationship Specialty Start Date End Date Aman Lawrence APRN [address] [place] [address] PCP - General 06/16/10 06/27/18 documented as of this encounter
--- OUTSIDE RECORDS SUMMARY | 2024-08-15 13:36 | XMS_ITS | Encounter Summary ---
Author Organization [facility] Address [facility] [place] [address] Care Team Providers Care Interventional Radiologist Name Role Phone Yisel Marroquin MD Primary Care Provider Unavail able Encounter Details Date Type Department Care Team (Late st Contact Info) Description 02/14/2018 Abstract [place] Conversion Results [address] [place] [address] Apd Conversion, Flowsheet Provider, Social History Tobacco [...] on filedocumented in this encounter Care Teams Interventional Radiologist Relationship Specialty Start Date End Date Yisel Marroquin MD PCP - General 11/13/18 03/05/19 documented as of this encounter
--- OUTSIDE RECORDS SUMMARY | 2024-08-15 13:36 | XMS_ITS | Encounter Summary ---
Author Organization [facility] Address [facility] [place] [address] Care Team Providers Care Academic Services Coordinator Name Role Phone Aman Lawrence APRN Primary Care Provider [phone] Reason for Visit * Reason Comments Chest Pain Coronary Artery Disease Hypertension Encounter Details Date Type Department Care Team (Latest Contact Info) Description 12/13/2016 10:00 AM EDT Office Visit Cardiology at [address] [address] Freddy Mejias MD [facility] [place] [address] Atherosclerosis of [place] coronary artery of [place] heart without angina pectoris; Essential hypertension Social [...] ??? Osteoporosis DEXA done at [facility] on 10/29/15: osteoporosis at the left hip T-3, and osteopenia of the spine T-1.9 ??? Atherosclerosis [place] coronary artery of [place] heart without angina pectoris ??? Hypertension ??? [...] at [facility] ENDOSCOPY ??? UPPER GI ENDOSCOPY, EXAM 12/04/2010 UPPER GI ENDOSCOPY performed by DEE WRIGHT at [facility] No family history on file. [...] Social history: , no children. Lives in [place]. 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 Smoking: Active smoker, 2ppd Alcohol: Prior alcoholic, [...] 2 times daily. 360 tablet 3 ??? ydjazkbqbsan-qsvc-goszodca (COMPLETE MULTIVITAMIN) Tablet Take 1 tablet by [...] this encounter Visit Diagnoses Diagnosis Atherosclerosis [place] coronary artery of [place] heart without angina pectoris Essential hypertension Unspecified essential hypertension documented in this encounter Care Teams Academic Services Coordinator Relationship Specialty Start Date End Date Aman Lawrence APRN [address] [place] [address] PCP - General 06/16/10 06/27/18 documented as of this encounter
--- OUTSIDE RECORDS SUMMARY | 2024-08-15 13:36 | XMS_ITS | Encounter Summary ---
Author Organization [facility] Address [facility] [address] [place] [address] Care Team Providers Care Set Up Mechanic Crown Assembly Machine Name Role Phone Aman Lawrence APRN Primary Care Provider [phone] Encounter Details Date Type Department Care Team (Late st Contact Info) Description 02/28/2018 Interpretation Only [facility] [address] [place] [phone] Sherly Earl APRN [address] [place] [address] Social History Tobacco Use Types Packs/Day Years [...] on filedocumented in this encounter Care Teams Set Up Mechanic Crown Assembly Machine Relationship Specialty Start Date End Date Aman Lawrence [place] [address] [place] [address] PCP - General 06/16/10 06/27/18 documented as of this encounter
--- OUTSIDE RECORDS SUMMARY | 2024-08-15 13:36 | XMS_ITS | Encounter Summary ---
Author Organization [facility] [place] [address] Care Team Providers Care Spring Coiler Hand Name Role Phone Aman Lawrence APRN Primary Care Provider [phone] Reason for Visit * Reason Onset Date Comments Medication Refill 03/24/2018 Encounter Details Date Type Department Care Team (Late st Contact Info) Description 03/24/2018 Refill Cardiology at [address] [address] Freddy Mejias MD [facility] [place] [address] Medication Refill Social History Tobacco Use Types [...] filedocumented in this encounter Care Teams Spring Coiler Hand Relationship Specialty Start Date End Date Aman Lawrence APRN [address] [address] PCP - General 06/16/10 06/27/18 documented as of this encounter
--- OUTSIDE RECORDS SUMMARY | 2024-08-15 13:36 | XMS_ITS | Encounter Summary ---
Author [place] [address] Care Team Providers Care Degreasing Wheel Operator Name Role Phone Yisel Marroquin MD Primary Care Provider Unavail able Encounter Details Date Type Department Care Team (Late st Contact Info) Description 01/04/2018 Orders Only Radiology and Cardiology Results [address] [place] [address] Apd Conversion, Results Provider, Social [...] on filedocumented in this encounter Care Teams Degreasing Wheel Operator Relationship Specialty Start Date End Date Yisel Marroquin MD PCP - General 11/13/18 03/05/19 documented as of this encounter
--- OUTSIDE RECORDS SUMMARY | 2024-08-15 13:36 | XMS_ITS | Encounter Summary ---
Author Organization [facility] [place] [address] Care Team Providers Care It Help Desk Analyst Name Role Phone Yisel Marroquin MD Primary Care Provider Unavail able Encounter Details Date Type Department Care Team (Late st Contact Info) Description 12/11/2018 Orders Only Primary Care at [facility] [address] [place] [address] Ruth Rene Social History Tobacco Use Types [...] on filedocumented in this encounter Care Teams It Help Desk Analyst Relationship Specialty Start Date End Date Yisel Marroquin MD PCP - General 11/13/18 03/05/19 documented as of this encounter
--- OUTSIDE RECORDS SUMMARY | 2024-08-15 13:36 | XMS_ITS | Encounter Summary ---
[place] [address] Care Team Providers Care Pnp Name Role Phone Aman Lawrence APRN Primary Care Provider [phone] Reason for Visit * Reason Onset Date Comments Follow-up 12/03/2016 Encounter Details Date Type Department Care Team (Late st Contact Info) Description 12/03/2016 Telephone [place] [address] Sidra Del Toro APRN Follow-up Social History [...] on filedocumented in this encounter Care Teams Pnp Relationship Specialty Start Date End Date Aman Lawrence APRN [address] [place] [address] PCP - General 06/16/10 06/27/18 documented as of this encounter
--- OUTSIDE RECORDS SUMMARY | 2024-08-15 13:36 | XMS_ITS | Encounter Summary ---
[place] [address] Care Team Providers Care Casino Surveillance Officer Name Role Phone Aman Lawrence APRN Primary Care Provider [phone] Encounter Details Date Type Department Care Team (Late st Contact Info) Description 01/19/2017 Telephone [place] [address] Kenya Villanueva, RN Social History Tobacco Use [...] EDT I received a call from the [facility] pharmacy about Jeannie's calcium dose changes. I let them know that I have no documentation about any changes in Jeannie's calcium. Medication Calcium Citrate-Vitamin D3 315-250 mg-unit Tablet [[id number]] Calcium Citrate-Vitamin D3 315-250 mg-unit Tablet [[id number]] Order Details Dose: 2 tablet Route: Oral Frequency: 2 TIMES DAILY Dispense Quantity: 360 tablet Refills: 3 Fills Remaining: -- ?? Sig: Take 2 tablets by mouth 2 times daily. (2) tabs 2 times daily. ?? Written Date: 11/19/16 Expiration Date: -- Start Date: 11/19/16 End Date: 11/19/17 after 730 doses ?? Ordering Provider: Sidra Del Toro APRN ARSH #: [id number] Authorizing Provider: Sidra Del Toro APRN ARSH #: [id number] Pharmacy: [address] ARSH #: -- Pharmacy Comments: -- ?? Quantity Remaining: -- Quantity Filled: -- documented in this encounter Plan of Treatment Not on file documented as of this encounter Visit Diagnoses Not on filedocumented in this encounter Care Teams Casino Surveillance Officer Relationship Specialty Start Date End Date Aman Lawrence APRN [place] [address] PCP - General 06/16/10 06/27/18 documented as of this encounter
--- OUTSIDE RECORDS SUMMARY | 2024-08-15 13:36 | XMS_ITS | Encounter Summary ---
Author Organization [facility] Address [facility] [place] [address] Care Team Providers Care Electrical Contacts Adjuster Name Role Phone Yisel Ventura MD Primary Care Provider [phone] Encounter Details Date Type Department Care Team (Latest Contact Info) Description 09/19/2018 10:59 AM EST - 09/19/2018 2:07 PM EST Hospital Encounter [place] [address] Tyron Mercado MD [facility] [place] [address] Discharge Disposition: Home Social History Tobacco Use [...] - 09/19/2018 1:11 PM EST Please call [phone] before 8pm Mon-Fri with problems, questions or concerns. If you call after 8pm or on weekends, call the Hospital at [phone] and ask to speak to the Timber Hand fabrication lead and the owner operator tanker truck driver will contact that person for you. * Attachments The following attachments cannot be sent through Care Everywhere. * EGD (Upper Endoscopy): Post-op ([place]) documented in this encounter Medications at Time [...] G89.29 ??? Lumbago M54.5 ??? Atherosclerosis of [place] coronary artery of [place] heart without angina pectoris I25.10 ??? Hypertension [...] Report (09/19/2018 12:59 PM EST) Final Diagnosis [id number] ? Location: 4T; EA07; A The signing [...] Vigil MD Verified: ??09/22/2018 ?Pathologist Performed at: ??-[facility] [place] Dept. of Pathology, [place], [place] CLINICAL INFORMATION Specimen Submitted: A - [...] cassette labeled C1. ??ejr 09/22/2018 3:24 PM [facility] GI Biopsy 09/19/2018 12:5 9 PM EST 09/19/2018 12:59 PM EST GI Biopsy 09/19/2018 12:5 9 PM EST 09/19/2018 12:59 PM EST GI Biopsy 09/19/2018 12:5 9 PM EST 09/19/2018 12:59 PM EST Tyron Mercado MD PATHOLOGY/CYTOLOGY ORDERABLES Performing Organization Address [facility]/ZIP Co de Phone Number [facility] [place] [address] * Specimen to Pathology (09/19/2018 12:59 PM EST) AP Specimen 09/19/2018 12:5 9 PM EST 09/19/2018 12:59 PM EST Narrative [facility] - 09/19/2018 12:59 PM EST Specimen requisition ordered. ??Separate Pathology report to follow Tyron Mercado MD PATHOLOGY/CYTOLOGY ORDERABLES Performing Organization Address [facility] Co de Phone Number [facility] [place] [address] * Specimen to Pathology (09/19/2018 12:59 PM EST) AP Specimen 09/19/2018 12:5 9 PM EST 09/19/2018 12:59 PM EST Narrative [facility] - 09/19/2018 12:59 PM EST Specimen requisition ordered. ??Separate Pathology report to follow Tyron Mercado MD PATHOLOGY/CYTOLOGY ORDERABLES Performing Organization Address [facility] Co de Phone Number [facility] [place] [address] * Specimen to Pathology (09/19/2018 12:59 PM EST) AP Specimen 09/19/2018 12:5 9 PM EST 09/19/2018 12:59 PM EST Narrative [facility] - 09/19/2018 12:59 PM EST Specimen requisition ordered. ??Separate Pathology report to follow Tyron Mercado MD PATHOLOGY/CYTOLOGY ORDERABLES Performing Organization Address [facility]/ZIP Co de Phone Number [facility] [place] [address] * UPPER GI ENDOSCOPY (09/19/2018 12:17 PM EST) Pathologist [facility] UPPER GI ENDOSCOPY [facility] Endoscopy Procedure Date: 09/19/2018 12:17 PM ? Patient Name: Jeannie Rico ? Date of : 1960 ? Age: 58 ? Order #: [id number] ? Instrument Name: [id number] ? Procedure: ? Upper GI endoscopy Indications: ? Dysphagia Providers: ? Tyron Mercado MD, Andrés Teixeira, ? Jeannie Alcazar RN, Anaid Ardon, ? Engineer Assistant Referring MD: ?Yisel Vetnura MD Medicines: ? Monitored Anesthesia Care Complications: [...] EST Yisel Ventura MD [facility] documented in this encounter [...] MD) documented in this encounter Care Teams Electrical Contacts Adjuster Relationship Specialty Start Date End Date [place] [address] PCP - General General Internal Medicine 06/28/1810/24 documented as of this encounter
--- OUTSIDE RECORDS SUMMARY | 2024-08-15 13:36 | XMS_ITS | Encounter Summary ---
Author Organization [facility] [place] [address] Care Team Providers Care Engineering And Operations Director Name Role Phone Yisel Marroquin MD Primary Care Provider Unavail able Encounter Details Date Type Department Care Team (Late st Contact Info) Description 10/19/2018 Abstract [place] Conversion Results [address] [place] [address] Apd Conversion, Flowsheet Provider, Social History Tobacco [...] filedocumented in this encounter Care Teams Engineering And Operations Director Relationship Specialty Start Date End Date Yisel Marroquin MD PCP - General 11/13/18 03/05/19 documented as of this encounter
--- OUTSIDE RECORDS SUMMARY | 2024-08-15 13:36 | XMS_ITS | Encounter Summary ---
[place] [address] Care Team Providers Care Records Specialist Name Role Phone Yisel Marroquin MD Primary Care Provider Unavail able Reason for Visit * Reason Onset Date Comments Medication Refill 12/14/2018 Encounter Details Date Type Department Care Team (Late st Contact Info) Description 12/14/2018 Refill Primary Care at [facility] [address] [place] [phone] Yisel Marroquin MD B12 deficiency Social History [...] Cruz RN - 12/14/2018 5:25 PM EDT [facility] called because they received a vitamin B12 1000mcg rx. The rx was for QD, but is usually for every week. 4 tabs were sent in. Rx fixed and sent to pharmacy. documented in this encounter Plan of Treatment Not on file documented as of this encounter Visit Diagnoses Diagnosis B12 deficiency Other B-complex deficiencies documented in this encounter Care Teams Records Specialist Relationship Specialty Start Date End Date Yisel Marroquin MD PCP - General 11/13/18 03/05/19 documented as of this encounter
--- OUTSIDE RECORDS SUMMARY | 2024-08-15 13:36 | XMS_ITS | Encounter Summary ---
Author Organization [facility] [place] [address] Care Team Providers Care Med Surg Rn Name Role Phone Yisel Marroquin MD Primary Care Provider Unavail able Encounter Details Date Type Department Care Team (Late st Contact Info) Description 07/14/2017 Abstract [place] Conversion Results [address] [place] [address] Apd Conversion, Flowsheet Provider, Social History Tobacco [...] on filedocumented in this encounter Care Teams Med Surg Rn Relationship Specialty Start Date End Date Yisel Marroquin MD PCP - General 11/13/18 03/05/19 documented as of this encounter
--- OUTSIDE RECORDS SUMMARY | 2024-08-15 13:36 | XMS_ITS | Encounter Summary ---
[place] [address] Care Team Providers Care Spindle Frame Carver Name Role Phone Yisel Marroquin MD Primary Care Provider Unavail able Reason for Visit * Reason Comments Medication Refill Encounter Details Date Type Department Care Team (Late st Contact Info) Description 12/12/2018 Refill Primary Care at [facility] [address] [place] [phone] Yisel Marroquin MD Social History Tobacco Use [...] on filedocumented in this encounter Care Teams Spindle Frame Carver Relationship Specialty Start Date End Date Yisel Marroquin MD PCP - General 11/13/18 03/05/19 documented as of this encounter
--- OUTSIDE RECORDS SUMMARY | 2024-08-15 13:36 | XMS_ITS | Encounter Summary ---
Author Organization [facility] [address] Care Team Providers Care Stitcher Hand Name Role Phone Yisel Marroquin MD Primary Care Provider [phone] Reason for Referral * Consultation (Urgent) - Closed Specialty Diagnoses / Procedures Referred By Contac t Referred To Contact Gastroenterology Carli Tinsley MD [facility] [address] [place] [address] [facility] Endoscopy [address] [place] [address] Referral ID Status Reason Start Date Expiration Date V isits Requested Visits Authorized [id number] Closed Consult, Test & Treat 09/11/2018 09/11/2019 1 1 Reason for Visit * Reason Comments Hoarseness Encounter Details Date Type Department Care Team (Late st Contact Info) Description 09/11/2018 3:33 PM EST - 09/11/2018 6:25 PM EST [place] [address] Ken Guerrero MD [address] [place] [id number] Dysphagia, unspecified type Discharge Disposition: Home Social [...] Care Everywhere. * Dysphagia Diet: General Info ([place]er) documented in this encounter Medications at Time [...] Discussed her case with the GI fellow solar field installation crew member,who advised urgent referral for an outpatient clinic [...] any errors. This note was dictated with [employer] software. Carli Tinsley MD Resident 09/11/181818 Associated [...] EST) Phosphorus 3.4 2.5 - 4.5 mg/dL [facility] Blood specimen (specimen) Venous Draw / Unknown 09/11/2018 4:45 PM EST 09/11/2018 5:06 PM EST Narrative Resulting Agency Comment Spec In Lab Carli Tinsley MD CHEMISTRY ORDERABLES [facility] [place] [address] * Magnesium (09/11/2018 4:45 PM EST) Magnesium 0.80 0.69 - 1.07 mmol/L [facility] Blood specimen (specimen) Venous Draw / Unknown 09/11/2018 4:45 PM EST 09/11/2018 5:06 PM EST Narrative Resulting Agency Comment Spec In Lab Carli Tinsley MD CHEMISTRY ORDERABLES Performing Organization Address City/[facility]/ZIP Co de Phone Number [facility] [place] [address] * Gold Tube HOLD (09/11/2018 4:45 PM EST) Gold Hold Sample in lab. [facility] Blood specimen (specimen) Venous Draw / Unknown 09/11/2018 4:45 PM EST 09/11/2018 5:07 PM EST Carli Tinsley MD CHEMISTRY ORDERABLES Performing Organization Address City/[facility]/ZIP Co de Phone Number [facility] [place] [address] * Blue Tube HOLD (09/11/2018 4:45 PM EST) Blue Hold Sample in lab. [facility] Blood specimen (specimen) Venous Draw / Unknown 09/11/2018 4:45 PM EST 09/11/2018 5:07 PM EST Carli Tinsley MD HEMATOLOGY ORDERABLE S [facility] [place] [address] * Differential, Automated (09/11/2018 4:45 PM EST) Pathologist [facility] Neutrophil % 70.5 % [facility] Neutrophil Absolute 5.40 1.70 - 6.10 x10(3)/[facility] LABORATORY Lymph % 21.7 % [facility] Lymphocytes Abs 1.7 0.9 - 3.2 x10(3)/[facility] Monocyte % 6.7 % [facility] Monocyte Abs 0.5 0.3 - 0.9 x10(3)/[facility]ORATORY Eos % 0.3 % [facility] Eosinophils Abs 0.0 0.0 - 0.4 x10(3)/[facility] Basophil % 0.7 % [facility] Baso Absolute 0.0 0.0 - 0.1 x10(3)/[facility]ORATORY Immature Gran % 0.10 % [facility] Comment: Immature granulocytes(IG's)percentage and absolute count will include metamyelocytes, myelocytes, and promyelocytes. Blood smears from CBCs yielding IG's will be scanned manually for concordance. If this scan disagrees with the automated IG or if promyelocytes are noted, a manual differential will be performed. Immature Gran Absolute 0.01 0.00 - 0.04 x10(3)/[facility] Blood specimen (specimen) 09/11/2018 4:45 PM EST 09/11/2018 5:06 PM EST Narrative Resulting Agency Comment Spec In Lab Carli Tinsley MD HEMATOLOGY ORDERABLE S [facility] [place] [address] * (ABNORMAL) Hemogram (09/11/2018 4:45 PM EST) Pathologist [facility] White Blood Cell 7.6 4.0 - 9.5 x10(3)/[facility] LABORATORY Red Blood Cell 4.44 4.00 - 5.21 x10(6)/mc L [facility] Hemoglobin 14.0 11.7 - 15.5 gm/dL [facility] Hematocrit 42.7 35.7 - 45.8 % [facility] Mean Cell Volume 96.2(H) 82.6 - 94.4 fL [facility] Mean Cell Hemoglobin 31.5 27.1 - 32.0 pg [facility] Mean Cell Hemoglobin Concentration 32.8 31.7 - 35.0 gm/dL [facility] Platelet 161 145 - 357 x10(3)/mc L [facility] RDW Standard Deviation 48.2(H) 37.0 - 46.0 fL [facility] RDW coefficient of variation 13.5 11.5 - 14.1 % [facility] Mean Platelet Volume 10.2 7.6 - 12.9 fL [facility] NRBC% auto 0.0 % [facility] NRBC Absolute 0.000 0.000 - 0.000 x10(3)/mc L [facility] Blood specimen (specimen) 09/11/2018 4:45 PM EST 09/11/2018 5:06 PM EST Narrative Resulting Agency Comment Spec In Lab Carli Tinsley MD HEMATOLOGY ORDERABLE S [facility] [place] [address] * (ABNORMAL) Comprehensive metabolic panel (non-fasting) (09/11/2018 4:45 PM EST) Glucose 81 65 - 199 mg/dL [facility] Comment:Diabetes: >=200 mg/d L plus symptoms Blood Urea Nitrogen 15 8 - 18 mg/dL [facility] Creatinine 0.83 0.70 - 1.20 mg/dL [facility] Sodium 141 135 - 145 mmol/L [facility] Potassium 4.1 3.5 - 5.0 mmol/L [facility] Comment: Please note: ??Patients with WBC >100,000 may have falsely elevated Potassium levels. ??For accurate Potassium quantification in these patients send serum separator tube (gold top) for subsequent determinations. ??Contact the Clinical Chemistry Laboratory if there are any questions. Chloride 101 98 - 107 mmol/L [facility] Carbon Dioxide 26 22 - 31 mmol/L [facility] Anion Gap 14 5 - 15 mmol/L [facility] Calcium 10.1 8.5 - 10.5 mg/dL [facility] Protein, Total 7.4 6.1 - 8.0 gm/dL [facility] Albumin 4.2 3.2 - 5.2 gm/dL [facility] Aspartate Aminotransferase 13 0 - 30 unit/L [facility] Alanine Aminotransferase 7 0 - 30 unit/L [facility] Alkaline Phosphatase 115(H) 40 - 104 unit/L [facility] Bilirubin, Total 0.2 0.2 - 1.3 mg/dL [facility] Est Glomerular Filtration Rate 78 >=60 mL/min/1. 73 m?? [facility] Comment: The eGFR was calculated using the CKD-EPI equation. As with all creatinine based estimates of kidney function, eGFR values calculated with the CKD-EPI equation are not accurate in patients with acute kidney failure, extremes of body mass or the acutely ill. [email or web address] eGFR 90 >=60 mL/min/1. 73 m?? [facility] Comment: The eGFR was calculated using the CKD-EPI equation. As with all creatinine based estimates of kidney function, eGFR values calculated with the CKD-EPI equation are not accurate in patients with acute kidney failure, extremes of body mass or the acutely ill. [email or web address] Blood specimen (specimen) 09/11/2018 4:45 PM EST 09/11/2018 5:06 PM EST Narrative Resulting Agency Comment Spec In Lab Ken Guerrero MD CHEMISTRY ORDERABLES [facility] [place] [address] documented in this encounter Visit Diagnoses Diagnosis [...] RN) documented in this encounter Care Teams Stitcher Hand Relationship Specialty Start Date End [place] [address] PCP - General General Internal Medicine 06/28/1810/24 documented as of this encounter
--- OUTSIDE RECORDS SUMMARY | 2024-08-15 13:36 | XMS_ITS | Encounter Summary ---
Author Organization [facility] [place] [address] Care Team Providers Care Security Officer Supervisor Name Role Phone Yisel Ventura MD Primary Care Provider [phone] Encounter Details Date Type Department Care Team (Late st Contact Info) Description 09/19/2018 12:45 PM EST - 09/19/2018 1:15 PM EST [place] [id number] Tyron Mercado MD [facility] [place] [address] UPPER GASTROINTESTINAL ENDOSCOPY,WITH BIOPSY SINGLE OR MULTIPLE [...] - 09/19/2018 1:11 PM EST Please call [phone] before 8pm Mon-Fri with problems, questions or concerns. If you call after 8pm or on weekends, call the Hospital at [phone] and ask to speak to the Roof Foreman graves registration specialist and the vertical lathe operator will contact that person for you. * Attachments The following attachments cannot be sent through Care Everywhere. * EGD (Upper Endoscopy): Post-op (Rwandan) documented in this encounter Medications at Time [...] G89.29 ??? Lumbago M54.5 ??? Atherosclerosis of [place] coronary artery of [place] heart without angina pectoris I25.10 ??? Hypertension [...] Report (09/19/2018 12:59 PM EST) Final Diagnosis [id number] ? Location: 4T; EA07; A The signing [...] Vigil MD Verified: ??09/22/2018 ?Pathologist Performed at: ??-[facility] Dept. of Pathology, [place], [place] CLINICAL INFORMATION Specimen Submitted: A - [...] labeled C1. ??ejr 09/22/2018 3:24 PM EST [facility] GI Biopsy 09/19/2018 12:5 9 PM EST 09/19/2018 12:59 PM EST GI Biopsy 09/19/2018 12:5 9 PM EST 09/19/2018 12:59 PM EST GI Biopsy 09/19/2018 12:5 9 PM EST 09/19/2018 12:59 PM EST Tyron Mercado MD PATHOLOGY/CYTOLOGY ORDERABLES Performing Organization Address City/[facility]/ZIP Co de Phone Number [facility] [place] [address] * Specimen to Pathology (09/19/2018 12:59 PM EST) AP Specimen 09/19/2018 12:5 9 PM EST 09/19/2018 12:59 PM EST Narrative [facility] - 09/19/2018 12:59 PM EST Specimen requisition ordered. ??Separate Pathology report to follow Tyron Mercado MD PATHOLOGY/CYTOLOGY ORDERABLES Performing Organization Address City/[facility]/ZIP Co de Phone Number [facility] [place] [address] * Specimen to Pathology (09/19/2018 12:59 PM EST) AP Specimen 09/19/2018 12:5 9 PM EST 09/19/2018 12:59 PM EST Narrative [facility] - 09/19/2018 12:59 PM EST Specimen requisition ordered. ??Separate Pathology report to follow Tyron Mercado MD PATHOLOGY/CYTOLOGY ORDERABLES Performing Organization Address City/[facility]/ZIP Co de Phone Number [facility] [place] [address] * Specimen to Pathology (09/19/2018 12:59 PM EST) AP Specimen 09/19/2018 12:5 9 PM EST 09/19/2018 12:59 PM EST Narrative [facility] - 09/19/2018 12:59 PM EST Specimen requisition ordered. ??Separate Pathology report to follow Tyron Mercado MD PATHOLOGY/CYTOLOGY ORDERABLES Performing Organization Address [facility]/ZIP Co de Phone Number [facility] [place] [address] * UPPER GI ENDOSCOPY (09/19/2018 12:17 PM EST) Pathologist [facility] UPPER GI ENDOSCOPY [facility] Endoscopy Procedure Date: 09/19/2018 12:17 PM ? Patient Name: Jeannie Rico ? [facility]: [id number] ? Date of : 1960 ? Age: 58 ? Order #: [id number] ? Instrument Name: [id number] ? Procedure: ? Upper GI endoscopy Indications: ? Dysphagia Providers: ? Tyron Mercado MD, Andrés Teixeira, ? Jeannie Alcazar RN, Anaid Ardon, ? Rail Splitter Referring MD: ?Yisel Ventura MD Medicines: ? [...] EST Yisel Ventura MD GENERAL SURGICAL ORD [facility]ATION documented in this encounter [...] MD) documented in this encounter Care Teams Security Officer Supervisor Relationship Specialty Start Date End Date [place] [address] PCP - General General Internal Medicine 06/28/1810/24 documented as of this encounter
--- OUTSIDE RECORDS SUMMARY | 2024-08-15 13:36 | XMS_ITS | Encounter Summary ---
Author Organization [facility] [place] [address] Care Team Providers Care Manager Sign Name Role Phone Yisel Marroquin MD Primary Care Provider Unavail able Reason for Visit * Reason Comments Follow-up Annual visit S/P RNY gastric bypass Encounter Details Date Type Department Care Team (Late st Contact Info) Description 11/15/2018 9:00 AM EDT Office [place] [address] Sidra Del Toro, Tamar Navarrete, RD [facility] [address] Disorder of iron metabolism; Status post bariatric [...] Guerra, RD - 11/15/2018 9:00 AM EDT [facility] client support manager Lela [phone] and [place] [phone] Dietitians: [phone] Surgeons/ nurse practitioners: [phone] Nurse line: [phone] Ask your PCP about the timing of your next bone density scan Testing: Labwork: soon. Go to Typist Area 3L, which is 1 flight below the General Surgery Clinic (or any lab including [facility] (open on Tuesdays) Please note that you will always receive a letter with lab results and recommendations. Read the letter carefully and follow recommendations. The letter also contains information regarding your next lab draw. A copy of your office visit today is sent to your primary day care home mother Next visit: 1 year Routine visits are done at 4.8,12, 18 and 24 months after surgery, and yearly thereafter. Please call [phone] if you do not receive an appointment [...] of every month from 1-2 PM at [facility]- no registration required Nutrition and Activity apps- Baritastic, My Fitness Pal, Lose It, My Plate Internet resources: www.Mojeek www.Jeeves www.bariatriceating.com www.Sxmobi Science and Technology.Mijn AutoCoach/blog [facility] facebook page: https://www.facebook.com/[facility] HEALTH – TULSABariatricSurgery Books & Magazines: - Recipes for Life After Weight Loss Surgery by Suly Cruz - Shrink Yourself by Dr Juan Carlos Carlos - Eating Well - www.OKCoin.Mijn AutoCoach - Cooking Light- www.Phico Therapeutics.Mijn AutoCoach documented in this encounter Progress Notes * [...] protein drinks Social History: Has a supportive immigration case manager. OBJECTIVE: Type of Surgery: non-divided [...] 11/15/18 221# 53% 38.1 18.5 years post-op [place] Body Weight (based on BMI of 25): [...] month ?? Exercise: yoga, meditation daily, With [employer] weather walks daily ?? ASSESSMENT: ?? Summary [...] of contrast was clearly seen within the mentasta fundus indicating a leak. The site of [...] use ? Colonoscopy ? Mammogram - Pap [facility] 10/29/15 DEXA Osteoporosis left hip, treated [...] MD at [facility] ENDOSCOPY ??? PRO UPPER GI ENDOSCOPY, BIOPSY N/A 09/19/2018 UPPER GASTROINTESTINAL ENDOSCOPY,WITH BIOPSY SINGLE OR MULTIPLE (WRVU 2.49) performed by Tyron Mercado MD at [facility] ENDOSCOPY ??? TONSILLECTOMY ??? UPPER GI ENDOSCOPY, EXAM 12/04/2010 UPPER GI ENDOSCOPY performed by DEE WRIGHT at [facility] ENDOSCOPY Allergies: as per allergy list Medications [...] blood in stool [] chronic diarrhea/ constipation TICKET BROKER: [] LMP: [] control [] menorrhagia [x] post-menopause Heme/Lymph: [] excessive bruising or bleeding [] blood donor in past year Psychiatric [] mental health concerns Other: Employment/social: disabled/ to [place] who has schizophrenia Health-related habits: Nicotine: as noted above Alcohol: none Physical activity: as per RD Objective: General: 58 y.o. year-old female looks well, appears upbeat. She is accompanied by her client service coordinatorDorcas Heart: Normal S1S2. RRR Lungs: CTA bilaterally [...] If labwork is done by the primary day care home mother: pleasesend a copy to the Bariatric Surgery Program, General Surgery Clinic, [facility], Questions regarding [facility] Bariatric Surgery Program patients: please call the Bariatric Surgery Program at [phone] documented in this encounter Plan of Treatment Not on file documented as of this encounter Results * (ABNORMAL) Hemoglobin A1c (02/07/2019 12:41 PM EDT) [facility] Hemoglobin A1c 5.9(H) 4.3 - 5.6 % LABORATORY Estimated Average Glucose 123 mg/dL [facility] Blood specimen (specimen) 02/07/2019 12:41 PM EDT 02/07/2019 2:07 PM EDT Narrative Resulting Agency Comment Spec In Lab / APD Sidra T Alverto GARNETT ROOM WORKER CHEMISTRY ORDERAB LES Performing Organization Address City/[facility]/ZIP Co de Phone Number [facility] [address] [place] [address] * (ABNORMAL) Iron and TIBC (02/07/2019 12:41 PM EDT) [facility] Iron 64 30 - 150 mcg/dL [facility] TIBC 351 250 - 450 mcg/dL [facility] Iron Saturation 18(L) 20 - 50 % [facility] Blood specimen (specimen) 02/07/2019 12:41 PM EDT 02/07/2019 2:05 PM EDT Narrative Resulting Agency Comment Spec In Lab / APD Sidra Del Toro GARNETT ROOM WORKER CHEMISTRY ORDERAB LES Performing Organization Address City/[facility]/ZIP Co de Phone Number [facility] [address] [place] [address] * (ABNORMAL) Ferritin (02/07/2019 12:41 PM EDT) [facility] Ferritin 19(L) 30 - 400 ng/mL [facility] Comment: Pediatric reference ranges not verified at [facility], interpret with caution. Reference ranges for females greater than 50 years of age approach values for men, i.e., 30-400 ng/mL. Blood specimen (specimen) 02/07/2019 12:41 PM EDT 02/07/2019 2:05 PM EDT Narrative Resulting Agency Comment Spec In Lab / APD Sidra T Alverto GARNETT ROOM WORKER CHEMISTRY ORDERAB LES Performing Organization Address City/[facility]/ZIP Co de Phone Number [facility] [address] [place] [address] * (ABNORMAL) PTH (02/07/2019 12:41 PM EDT) Parathyroid Hormone 71(H) 15 - 65 pg/mL [facility] Blood specimen (specimen) 02/07/2019 12:41 PM EDT 02/07/2019 3:55 PM EDT Narrative Resulting Agency Comment Spec In Lab / APD Sidra Bray Alverto WOLFN CHEMISTRY ORDERAB LES Performing Organization Address [facility] Co de Phone Number [facility] [place] [address] * Vitamin B12 (02/07/2019 12:41 PM EDT) Vitamin B12 603 232 - 1,245 pg/mL [facility] Blood specimen (specimen) 02/07/2019 12:41 PM EDT 02/07/2019 3:55 PM EDT Narrative Resulting Agency Comment Spec In Lab / APD Sidra Bray Alverto GARNETT ROOM WORKER CHEMISTRY ORDERAB LES Performing Organization Address [facility] Co de Phone Number [facility] [place] [address] * Vitamin B1, whole blood (02/07/2019 12:41 [...] Food and Drug Administration. Test Performed by: [facility] [address] [place] [address] Blood specimen (specimen) 02/07/2019 12:41 PM EDT 02/07/2019 5:37 PM EDT Narrative Resulting Agency Comment Spec In Lab / APD Sidra Del Toro APRN LAB SEND OUT ORDE VIDAL Performing Organization Address City/[facility]/ZIP Co de Phone Number [facility] [address] [place] [address] * Vitamin D, 25-Hydroxy (02/07/2019 12:41 PM EDT) Vitamin D Total 25 OH 36 30 - 100 ng/mL [facility] Comment: Deficient <10 ng/mL Insufficient 10 to 29 ng/mL Sufficient 30 to 100 ng/mL Potential Intoxication >100 ng/mL According to the US National Osteoporosis Foundation, Vitamin D concentrations >30 ng/mL are sufficient to protect bone health. ??The National Kidney Foundation has similarly stated that patients with Vitamin D concentrations <30ng/mL should be considered to be insufficient or deficient. http://omelett.es.Mijn AutoCoach/nkf-guidelines http://omelett.es.Mijn AutoCoach/nejm-VitD The IDS iSYS Vitamin D Immunoassay detects both 25-OH Vitamin D2 and 25-OH Vitamin D3, but only a total Vitamin D concentration is reported. Blood specimen (specimen) 02/07/2019 12:41 PM EDT 02/08/2019 7:27 AM EDT Narrative Resulting Agency Comment Spec In Lab / APD Sidra Del Toro APRN CHEMISTRY ORDERAB LES Performing Organization Address City/[facility]/ZIP Co de Phone Number [facility] [place] [address] * Folate, serum (02/07/2019 12:41 PM EDT) Folate 8.6 4.8 - 24.2 ng/mL [facility] Blood specimen (specimen) 02/07/2019 12:41 PM EDT 02/07/2019 3:55 PM EDT Narrative Resulting Agency Comment Spec In Lab / APD Sidra Del Toro GARNETT ROOM WORKER CHEMISTRY ORDERAB LES [facility] [place] [address] documented in this encounter Visit Diagnoses Diagnosis [...] documented in this encounter Care Teams Manager Sign Relationship Specialty Start Date End Date Yisel Marroquin MD PCP - General 11/13/18 03/05/19 documented as of this encounter
--- OUTSIDE RECORDS SUMMARY | 2024-08-15 13:36 | XMS_ITS | Encounter Summary ---
Author Organization [facility] Address [facility] [address] Care Team Providers Care Military Communications Specialist Name Role Phone Yisel Marroquin MD Primary Care Provider Unavail able Encounter Details Date Type Department Care Team (Late st Contact Info) Description 05/19/2017 Abstract [place] Conversion Results [address] [place] [address] Apd Conversion, Flowsheet Provider, Social History Tobacco [...] filedocumented in this encounter Care Teams Military Communications Specialist Relationship Specialty Start Date End Date Yisel Marroquin MD PCP - General 11/13/18 03/05/19 documented as of this encounter
--- OUTSIDE RECORDS SUMMARY | 2024-08-15 13:37 | XMS_ITS | Encounter Summary ---
Author Organization [facility] Address [facility] [place] [address] Care Team Providers Care Recreation Assistant Name Role Phone Yisel Marroquin MD Primary Care Provider Unavail able Encounter Details Date Type Department Care Team (Late st Contact Info) Description 09/29/2015 Abstract [place] Conversion Results [address] [place] [address] Apd Conversion, Flowsheet Provider, Social History Tobacco [...] on filedocumented in this encounter Care Teams Recreation Assistant Relationship Specialty Start Date End Date Yisel Marroquin MD PCP - General 11/13/18 03/05/19 documented as of this encounter
--- OUTSIDE RECORDS SUMMARY | 2024-08-15 13:37 | XMS_ITS | Encounter Summary ---
[place] [address] Care Team Providers Care Physician Assistant Certified Name Role Phone Aman Lawrence APRN Primary Care Provider [phone] Reason for Referral * Consultation (Routine) - Closed Specialty Diagnoses / Procedures Referred By Vanita dimas Referred To Contact Gastroenterology Diagnoses Gastroesophageal reflux disease, esophagitis presence not specified Status post bariatric surgery Intestinal malabsorption, unspecified type Sidra Del Toro APRN [facility] [place] [address] [facility] Endoscopy [address] [place] [address] Referral ID Status Reason Start Date Expiration Date V isits Requested Visits Authorized [id number] Closed Test Only 10/23/2015 10/22/2016 1 1 Reason for Visit * Reason Comments Follow-up Bariatric Surgery Pr ogram follow up Encounter Details Date Type Department Care Team (Latest Contact Info) Description 10/23/2015 10:30 AM EDT Office [place] [address] Sidra Del Toro APRN Gastroesophageal [...] 11:14 AM EDT BSP Admin coordinator Rhonda: [phone] Dietitian: [phone] Surgeons/ nurse practitioner: [phone] Nurse line: [phone] Your excess body weight lost: 36% Continue to with the hard work. Testin. Labwork: Today. Go to Tooling Mechanic Area 3L, which is 1 flight below [...] after surgery, and yearly thereafter. Please call [phone] if you do not receive an appointment by 3-4 weeks prior to the expected visit. Medications: 1. Ask Aman about the plavix medication- when to stop before to the endoscopy 2. recommendations pending labwork. Referrals: Upper endoscopy. The date of the study will like change Date of Procedure: 12/03/15 Arrival Time: 7:30 AM Location: [facility], Endoscopy Center - please park in [...] cabs or buses. We do request your cdl b driver stay at [facility] while you are here foryour procedure. If you have read the enclosed information thoroughly and still have questions about what you have read, please call [phone] between the hours of 7:00am- 7:00pm, Tuesday-Tuesday and a nurse will assist you. If you have an urgent matter after hours, please call [phone] and ask to speak to the Gastroenterology Fellow provider relations representative. If you need to reschedule your procedure please call: [phone]. The preparation for this procedure is no [...] PM at [facility]- no registration required Internet resources: www.Dromadaire.com www.NetBrain Technologies www.Context app www.Frensenius [facility] (cat Alonzo) https://www.facebook.com/[facility]QUAHBariatricSurgery Bariatric surgery apps- [facility] Post-cecy Books & Magazines: - Recipes for Life After Weight Loss Surgery by Suly Cruz - Shrink Yourself by Dr Juan Carlos Carlos - Nutrition Action Health Letter subscribe at www.cspinet.org/nah/ - Eating Well - Cooking Light documented in this encounter Progress Notes * iNecy Darden - 10/23/2015 8:32 AM EDT Bariatric [...] 1/2 cup cottage cheese w/ peaches or Malawian yogurt Lunch Slimfast or Ensure SF PM Snack 1/2 cup cottage cheese and fruit Dinner CIB or Malawian yogurt or HB egg HS Snack She [...] of contrast was clearly seen within the [place] fundus indicating a leak. The site of [...] stable, on clopidogrel A. 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 Patient concerns at today's visit: she [...] blood in stool [] chronic diarrhea/ constipation GAS PROCESSING PLANT OPERATOR: [] LMP: [] control [] menorrhagia [+] surgical menopause Heme/Lymph: [] excessive bruising [] blood donor in past year Psychiatric [] mental health concerns Other: Exercise/activity level: as per RD note Employment/social: disabled/ Health-related habits: Tobacco: 1 PPD Alcohol: none Dietary history: See dietitian note. Objective: General: 55 y.o. year-old female looks well, appears upbeat. She is accompanied to today's visit byher molded goods controls operator. Exam room with nauseating odor of nicotine Heart: RRR Lungs: CTA without wheezing Abdomen: soft, non-tender. Multiple upper abdominal scars, including upper midline, right subcostaland chevron scars well-healed, without evidence of hernia. Extremities: no edema Vital signs:Blood pressure 139/71, pulse 55, temperature 36.8 ??C (98.2 ??F), resp. rate 19, juuqvq883.956 kg (238 lb), SpO2 98 %. Body [...] reviewed in detail with Jeannie and her housing case manager. ?? She is unable to stay to have labwork done today, will be done at [facility]. Primary care office called to obtain copy [...] place prior to consideration of surgery, given exterminator risks associated with tobacco use including lifetime [...] [K90.9] documented in this encounter Care Teams Physician Assistant Certified Relationship Specialty Start Date End Date Aman Lawrence APRN [address] [place] [address] PCP - General 06/16/10 06/27/18 documented as of this encounter
--- OUTSIDE RECORDS SUMMARY | 2024-08-15 13:37 | XMS_ITS | Encounter Summary ---
[place] [address] Care Team Providers Care Film Historian Name Role Phone Aman Lawrence APRN Primary Care Provider [phone] Reason for Referral * Consultation (Routine) - Closed Specialty Diagnoses / Procedures Referred By Vanita dimas Referred To Contact Endocrinology Diagnoses Osteoporosis, unspecified osteoporosis type, unspecified pathological fracture presence Tobacco dependence Sidra Del Toro APRN [facility] [place] [address] [facility] [address] [place] [id number] Referral ID Status Reason Start Date Expiration Date V isits Requested Visits Authorized [id number] Closed Specialty Service Requested 11/19/2016 11/19/2017 1 1 Reason for Visit * Reason Comments Follow-up Bariatric Surgery Pr ogram follow up Encounter Details Date Type Department Care Team (Late st Contact Info) Description 11/15/2016 9:00 AM EDT Office [place] [id number] Sidra Del Toro APRN Stanzione, Rose A, [...] Niecy Darden - 11/15/2016 9:00 AM EDT [facility] Admin coordinator Rhonda: [phone] Dietitian: [phone] Surgeons/ nurse practitioner: [phone] Nurse line: [phone] Congratulations on your plan to stop smoking!! Testing: Labwork: Today. Go to Counter Manager Area 3, which is 1 flight below [...] after surgery, and yearly thereafter. Please call [phone] if you do not receive an appointment [...] of every month from 1-2 PM at [facility] [place] [place]- no registration required Nutrition and Activity apps- Baritastic, My Fitness Pal, Lose It, My Plate Internet resources: www.[employer] wwwNok Nok Labs www.bariatriceating.[employer] www.[employer]/blog [facility] [place] [place] facebook page: https://www.facebook.com/[facility] Books & Magazines: - Recipes for Life [...] of contrast was clearly seen within the soboba fundus indicating a leak. 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 [facility] a non-enhanced CT scanof the abdomen was [...] in December She had an EGD at [facility] [place] [place] last November which was unremarkable Subjective. Patient [...] blood in stool [] chronic diarrhea/ constipation SENIOR COMPLIANCE OFFICER: [] LMP: [] control [] menorrhagia [+] post-menopause Heme/Lymph: [] excessive bruising [] blood donor in past year Psychiatric [] mental health concerns Other: Exercise/activity level: as per RD note Employment/social: disabled/ Health-related habits: Tobacco: 2 cartons a week, rolled by pt Alcohol: none Dietary history: See dietitian note. Objective: General: 56 y.o. year-old female looks well. She is accompanied by her supervisor purification Dorcas. Heart: RRR Lungs: CTA bilaterally without [...] If labwork is done by the primary small animal caretaker: please send a copy to the Bariatric Surgery Program, General Surgery Clinic, [facility] [place] [place], attention Sidra Del Toro APRN. Questions regarding [facility] [place] [place] Bariatric Surgery Program patients: please call Jorge Del Toro APRN at [phone] or [phone] [phone]. E-mail: [email or web address] * Niecy Darden - 11/15/2016 9:00 AM [...] years post-op Social History: Has a supportive case repairer. Vitamin/Mineral Supplements (reported by patient): Supplement Type [...] sometimes 1 slice cheese PM Snack Sometimes Bahai granola bar Dinner Soup- vegetable, chicken and rice, or tomato Or grilled zuchinni with ham roll up Or 1 egg and 1 slice toast HS Snack Sometimes fruit or tomatoes and carrots Protein/ grams per day: 30-40 grams Calories per day: 0190-1911 kcals Hydrating fluids- oz/ day: 62-68 oz [...] EDT) Folate >20.0 4.8 - 24.2 ng/mL [facility] Blood specimen (specimen) 11/15/2016 10:25 AM EDT 11/15/2016 10:36 AM EDT Narrative Resulting Agency Comment Spec In Lab Sidra Del Toro APRN CHEMISTRY ORDERAB LES [facility] [place] [address] * (ABNORMAL) Vitamin B1, whole blood (11/15/2016 10:25 AM EDT) Vit B1 Lvl Wb (NOVEMBER) 233(H) 70 - 180 nmol/L [facility] Comment: ADDITIONAL INFORMATION This test was developed and its performance characteristics determined by [facility] in a manner consistent with CLIA requirements. This test has not been cleared or approved by the U.S. Food and Drug Administration. Test Performed by: [address] [address] Blood specimen (specimen) 11/15/2016 10:25 AM EDT 11/15/2016 1:08 PM EDT Narrative Resulting Agency Comment Spec In Lab Sidra Katarina Finney [facility] SEND OUT ORDE RABLES Performing Organization Address City/[facility]/ZIP Co de Phone Number [facility] [place] [address] * PTH (11/15/2016 10:25 AM EDT) Parathyroid Hormone 47 15 - 65 pg/mL [facility] Blood specimen (specimen) 11/15/2016 10:25 AM EDT 11/15/2016 10:36 AM EDT Narrative Resulting Agency Comment Spec In Lab Sidra Katarina Alverto COMMUNITY HEALTH AGENT CHEMISTRY ORDERAB LES Performing Organization Address [facility]/ZIP Co de Phone Number [facility] [place] [address] * (ABNORMAL) Vitamin B12 (11/15/2016 10:25 AM EDT) Vitamin B12 1,588(H) 207 - 974 pg/mL [facility] Blood specimen (specimen) 11/15/2016 10:25 AM EDT 11/15/2016 10:36 AM EDT Narrative Resulting Agency Comment Spec In Lab Sidra T Alverto COMMUNITY HEALTH AGENT CHEMISTRY ORDERAB LES Performing Organization Address [facility]/ZIP Co de Phone Number [facility] [place] [address] * Iron and TIBC (11/15/2016 10:25 AM EDT) Iron 88 30 - 150 mcg/dL [facility] TIBC 390 250 - 450 mcg/dL [facility] Iron Saturation 23 20 - 50 % [facility] Blood specimen (specimen) 11/15/2016 10:25 AM EDT 11/15/2016 10:36 AM EDT Narrative Resulting Agency Comment Spec In Lab Sidra Del Toro COMMUNITY HEALTH AGENT CHEMISTRY ORDERAB LES Performing Organization Address City/[facility]/ZIP Co de Phone Number [facility] [place] [address] * Ferritin (11/15/2016 10:25 AM EDT) Ferritin 36 30 - 400 ng/mL [facility] Comment: Pediatric reference ranges not verified at [facility] [place] [place], interpret with caution. Reference ranges for females greater than 50 years of age approach values for men, i.e., 30-400 ng/mL. Blood specimen (specimen) 11/15/2016 10:25 AM EDT 11/15/2016 10:36 AM EDT Narrative Resulting Agency Comment Spec In Lab Sidra T Alverto COMMUNITY HEALTH AGENT CHEMISTRY ORDERAB LES Performing Organization Address City/[facility]/ZIP Co de Phone Number [facility] [place] [address] * Vitamin D, 25-Hydroxy (11/15/2016 10:25 AM EDT) Pathologist [facility] Vitamin D Total 25 OH 44 30 - 100 ng/mL [facility] Comment: Deficient <10 ng/mL Insufficient 10 to 29 ng/mL Sufficient 30 to 100 ng/mL Potential Intoxication >100 ng/mL According to the US National Osteoporosis Foundation, Vitamin D concentrations >30 ng/mL are sufficient to protect bone health. ??The National Kidney Foundation has similarly stated that patients with Vitamin D concentrations <30ng/mL should be considered to be insufficient or deficient. http://SHEEX.Triplejump Group/DHnatlkidneyfoundation http://[employer]/DHVitD The IDS iSYS Vitamin D Immunoassay detects both 25-OH Vitamin D2 and 25-OH Vitamin D3, but only a total Vitamin D concentration is reported. Blood specimen (specimen) 11/15/2016 10:25 AM EDT 11/15/2016 1:13 PM EDT Narrative Resulting Agency Comment Spec In Lab Sidra Del Toro COMMUNITY HEALTH AGENT CHEMISTRY ORDERAB LES [facility] [place] [address] documented in this encounter Visit Diagnoses Diagnosis Disorder of iron metabolism Other disorders of iron metabolism Status post bariatric surgery Bariatric surgery status Intestinal malabsorption, unspecified type Vitamin D deficiency Unspecified vitamin D deficiency Osteoporosis, unspecified osteoporosis type, unspecified pathological fracture presence Tobacco dependence Tobacco use disorder documented in this encounter Care Teams Film Historian Relationship Specialty Start Date End Date Aman Lawrence APRN [place] [address] PCP - General 06/16/10 06/27/18 documented as of this encounter
--- OUTSIDE RECORDS SUMMARY | 2024-08-15 13:37 | XMS_ITS | Encounter Summary ---
Author Organization [facility] Address [address] [facility] [place] [address] Care Team Providers Care Medical Photographer Name Role Phone Yisel Marroquin MD Primary Care Provider Unavail able Encounter Details Date Type Department Care Team (Late st Contact Info) Description 09/28/2016 Interpretation Only Radiology [address] [facility] [place] [id number] Unknown None Social History Tobacco Use Types [...] 9:37 AM EST APD Historical Result Principal Butcher: ??JENNY ??SYEDA STACK: INDICATION: ??The patient has [...] No renal calculi identified. Jenny Landa MD [facility]/rr [id number] Procedure Note Unknown - 01/22/2019 APD Historical Result Principal Butcher: JENNY LANDA KUB: INDICATION: The patient has [...] No renal calculi identified. Jenny Landa MD [facility]/ [id number] Unknown IMG DX ORDERABLES documented in this encounter Visit Diagnoses Not on filedocumented in this encounter Care Teams Medical Photographer Relationship Specialty Start Date End Date Yisel Marroquin MD PCP - General 11/13/18 03/05/19 documented as of this encounter
--- OUTSIDE RECORDS SUMMARY | 2024-08-15 13:37 | XMS_ITS | Encounter Summary ---
Author Organization [facility] [place] [address] Care Team Providers Care Animation Director Name Role Phone Yisel Marroquin MD Primary Care Provider Unavail able Encounter Details Date Type Department Care Team (Late st Contact Info) Description 08/07/2014 Abstract [place] Conversion Results [address] [place] [address] Apd Conversion, Flowsheet Provider, Social History Tobacco [...] on filedocumented in this encounter Care Teams Animation Director Relationship Specialty Start Date End Date Yisel Marroquin MD PCP - General 11/13/18 03/05/19 documented as of this encounter
--- OUTSIDE RECORDS SUMMARY | 2024-08-15 13:37 | XMS_ITS | Encounter Summary ---
[place] [address] Care Team Providers Care Research Project Coordinator Name Role Phone Yisel Marroquin MD Primary Care Provider Unavail able Encounter Details Date Type Department Care Team (Late st Contact Info) Description 05/14/2015 Orders Only Radiology and Cardiology Results [address] [place] [address] Apd Conversion, Results Provider, Social [...] filedocumented in this encounter Care Teams Research Project Coordinator Relationship Specialty Start Date End Date Yisel Marroquin MD PCP - General 11/13/18 03/05/19 documented as of this encounter
--- OUTSIDE RECORDS SUMMARY | 2024-08-15 13:37 | XMS_ITS | Encounter Summary ---
Author Organization [facility] Address [facility] [place] [address] Care Team Providers Care Rehabilitation Medicine Physician Name Role Phone Yisel Marroquin MD Primary Care Provider Unavail able Encounter Details Date Type Department Care Team (Late st Contact Info) Description 08/03/2016 Abstract [place] Conversion Results [address] [place] [address] Apd Conversion, Flowsheet Provider, Social History Tobacco [...] on filedocumented in this encounter Care Teams Rehabilitation Medicine Physician Relationship Specialty Start Date End Date Yisel Marroquin MD PCP - General 11/13/18 03/05/19 documented as of this encounter
--- OUTSIDE RECORDS SUMMARY | 2024-08-15 13:37 | XMS_ITS | Encounter Summary ---
Author Organization [facility] [place] [address] Care Team Providers Care Furniture Manager Name Role Phone Yisel Marroquin MD Primary Care Provider Unavail able Encounter Details Date Type Department Care Team (Late st Contact Info) Description 09/20/2016 Orders Only Radiology and Cardiology Results [address] [place] [address] Apd Conversion, Results Provider, Social [...] 116.9 KORI FLORES DAY CONVERSION Hemoglobin A1c 5.8(Generation Technologist al Lab) 4.5 - 6.2 FLORES DAY CONVERSION 09/20/2016 Results Provider Apd Conversion MD JASON ESTRELLA ORDERABLES KORI [facility]OR[facility] DAY CONVERSION documented in this encounter Visit Diagnoses Not on filedocumented in this encounter Care Teams Furniture Manager Relationship Specialty Start Date End Date Yisel Marroquin MD PCP - General 11/13/18 03/05/19 documented as of this encounter
--- OUTSIDE RECORDS SUMMARY | 2024-08-15 13:37 | XMS_ITS | Encounter Summary ---
[place] [address] Care Team Providers Care Sugar Cane Farm Manager Name Role Phone Aman Lawrence APRN Primary Care Provider [phone] Encounter Details Date Type Department Care Team (Late st Contact Info) Description 12/03/2015 8:22 AM EDT Anesthesia [place] [address] Nilam Hi MD [facility] [place] [address] Francisco Javier Lord MD [facility] [place] [address] Anesthesia Record Procedure Summary Procedure Name Responsible [...] 0807; metacarpal vein right (top of hand); sazh-rom-nftdfa catheter system; 22 gauge; distraction; 12/03/15; 0852 [...] Hi MD - 12/03/2015 9:18 AM EDT [facility] Department of Anesthesiology Post-procedure Note Patient: Jeannie Rico Procedure Summary Date Anesthesia Start Anesthesia Stop Room / Location 12/03/15 0822 0836 [facility] / [facility] Procedure Diagnosis Surgeon Responsible Provider EGD WITH BIOPSY (N/A Trunk) (? ulcer, Heartburn) Ken Sanders MD Chiang, Laura M, MD All Anesthesia Providers: Anesthesiologist: Nilam Hi MD BOARD SETTER: Dinesh Babin CRNA Last (1hr) Vitals: BP Temp Pulse Resp SpO2 Patient Location: PACU/[facility] Level of Consciousness: Conscious but [...] GI ENDOSCOPY performed by DEE WRIGHT at [facility] ??? Abdomen surgery ??? Hysterectomy History [...] risks discussed with patient. Plan discussed with BOARD SETTER. PAT Staff Note documented in this encounter Miscellaneous Notes * Addendum Note - Nilam Hi MD - 12/05/2015 12:19 PM EDT Addendum created 12/05/15 1219 by Nilam Hi MD Modules edited: Notes Section Notes Section: File: [id number] documented in this encounter Plan of Treatment [...] mg documented in this encounter Care Teams Sugar Cane Farm Manager Relationship Specialty Start Date End Date Aman Lawrence APRN [address] [place] [address] PCP - General 06/16/10 06/27/18 documented as of this encounter
--- OUTSIDE RECORDS SUMMARY | 2024-08-15 13:37 | XMS_ITS | Encounter Summary ---
[place] [address] Care Team Providers Care Biological Aide Name Role Phone Yisel Marroquin MD Primary Care Provider Unavail able Encounter Details Date Type Department Care Team (Late st Contact Info) Description 04/28/2016 Orders Only Radiology and Cardiology Results [address] [place] [address] Apd Conversion, Results Provider, [...] on filedocumented in this encounter Care Teams Biological Aide Relationship Specialty Start Date End Date Yisel Marroquin MD PCP - General 11/13/18 03/05/19 documented as of this encounter
--- OUTSIDE RECORDS SUMMARY | 2024-08-15 13:37 | XMS_ITS | Encounter Summary ---
Author Organization [facility] Address [facility] [place] [address] Care Team Providers Care Block Sorter Name Role Phone Yisel Marroquin MD Primary Care Provider Unavail able Encounter Details Date Type Department Care Team (Late st Contact Info) Description 01/13/2016 Abstract [place] Conversion Results [address] [place] [address] Apd Conversion, Flowsheet Provider, Social History Tobacco [...] on filedocumented in this encounter Care Teams Block Sorter Relationship Specialty Start Date End Date Yisel Marroquin MD PCP - General 11/13/18 03/05/19 documented as of this encounter
--- OUTSIDE RECORDS SUMMARY | 2024-08-15 13:37 | XMS_ITS | Encounter Summary ---
Author Organization [facility] Address [address] [facility] [place] [address] Care Team Providers Care Sql Server Dba Developer Name Role Phone Yisel Marroquin MD Primary Care Provider Unavail able Encounter Details Date Type Department Care Team (Late st Contact Info) Description 09/28/2016 Interpretation Only Radiology [address] [facility] [place] [address] Unknown None Social History Tobacco Use Types [...] 9:37 AM EST APD Historical Result Principal Radar Signal Processing Engineer: ??JENNY ??SYEDA CT ABDOMEN AND PELVIS WITHOUT [...] on this unenhanced CT. Jenny Landa MD [facility]/ [id number] Procedure Note Unknown - 01/22/2019 APD Historical Result Principal Radar Signal Processing Engineer: JENNY LANDA CT ABDOMEN AND PELVIS WITHOUT [...] this unenhanced CT. Jenny Vijay Landa MD [facility]/ [id number] Unknown IMG CT ORDERABLES documented in this encounter Visit Diagnoses Not on filedocumented in this encounter Care Teams Sql Server Dba Developer Relationship Specialty Start Date End Date Yisel Marroquin MD PCP - General 11/13/18 03/05/19 documented as of this encounter
--- OUTSIDE RECORDS SUMMARY | 2024-08-15 13:37 | XMS_ITS | Encounter Summary ---
[place] [address] Care Team Providers Care Sales Mgr Name Role Phone Yisel Marroquin MD Primary Care Provider Unavail able Encounter Details Date Type Department Care Team (Late st Contact Info) Description 04/28/2016 Orders Only Radiology and Cardiology Results [address] [place] [address] Apd Conversion, Results Provider, Social [...] 116.9 KORI FLORES DAY CONVERSION Hemoglobin A1c 6.0(Health Insurance Sales Agent al Lab) 4.5 - 6.2 KORI FLORES DAY CONVERSION 04/28/2016 Results Provider Apd Conversion MD JASON ESTRELLA ORDERABLES KORI FLORES DAY CONVERSION documented in this encounter Visit Diagnoses Not on filedocumented in this encounter Care Teams Sales Mgr Relationship Specialty Start Date End Date Yisel Marroquin MD PCP - General 11/13/18 03/05/19 documented as of this encounter
--- OUTSIDE RECORDS SUMMARY | 2024-08-15 13:37 | XMS_ITS | Encounter Summary ---
[place] [address] Care Team Providers Care Travel Ticketing Reviewer Name Role Phone Yisel Marroquin MD Primary Care Provider Unavail able Encounter Details Date Type Department Care Team (Late st Contact Info) Description 10/29/2015 Orders Only Radiology and Cardiology Results [address] [place] [address] Apd Conversion, Results Provider, Social [...] on filedocumented in this encounter Care Teams Travel Ticketing Reviewer Relationship Specialty Start Date End Date Yisel Marroquin MD PCP - General 11/13/18 03/05/19 documented as of this encounter
--- OUTSIDE RECORDS SUMMARY | 2024-08-15 13:37 | XMS_ITS | Encounter Summary ---
Author [facility] [place] [address] Care Team Providers Care Inspector Assembly Name Role Phone Yisel Marroquin MD Primary Care Provider Unavail able Encounter Details Date Type Department Care Team (Late st Contact Info) Description 10/12/2016 Abstract [place] Conversion Results [address] [place] [address] Apd Conversion, Flowsheet Provider, Social History Tobacco [...] filedocumented in this encounter Care Teams Inspector Assembly Relationship Specialty Start Date End Date Yisel Marroquin MD PCP - General 11/13/18 03/05/19 documented as of this encounter
--- OUTSIDE RECORDS SUMMARY | 2024-08-15 13:37 | XMS_ITS | Encounter Summary ---
Author Organization [facility] Address [facility] [place] [address] Care Team Providers Care Lpn Care Manager Name Role Phone Aman Lawrence APRN Primary Care Provider +1 [phone] Encounter Details Date Type Department Care Team (Latest Contact Info) Description 12/03/2015 7:35 AM EDT - 12/03/2015 9:01 AM EDT Hospital En[place] [address] Ken Sanders MD [facility] [place] [address] Discharge Disposition: Home Social History Tobacco Use [...] better as expected. Tuesday-Tuesday Same Day Endo [phone]-8p Otherwise contact [phone] and ask to speak to the tube coverer auto transmission technician Follow-up care is a ramírez part of your treatment and safety. Be sure to make and go to all appointments, and call your doctor if you are having problems. Instructions have been reviewed and patient expresses understanding * Attachments The following attachments cannot be sent through Care Everywhere. * EGD (UPPER ENDOSCOPY) : POST-OP (TURKISH) documented in this encounter Medications at Time [...] vitamins (B COMPLEX-VITAMIN B12) tablet 09/23/2010 11/19/2016 gxcinresiftw-yzbj-cwfnp als (COMPLETE MULTIVITAMIN) Tab tablet 1 Tablet(s), PO, Once daily 09/23/2010 11/19/2016 calcium citrate-vitamin D (CITRACAL+D) 315-200 mg-unit per tablet 2 Tablet(s), PO, Twice daily 09/23/2010 11/19/2016 ergocalciferol (VITAMIN D) 50,000 unit capsule [id number], PO, TWICE a week 09/23/2010 11/19/2016 documented [...] Report (12/03/2015 8:39 AM EDT) Final Diagnosis [id number] ? Location: 4T; EA11; A The signing [...] ng: (T1) ??sns 12/05/2015 2:25 PM EDT [facility] GI Biopsy 12/03/2015 8:39 AM EDT 12/03/2015 8:39 AM EDT GI Biopsy 12/03/2015 8:39 AM EDT 12/03/2015 8:39 AM EDT Ken Sanders MD PATHOLOGY/CYTOLOGY O ALYSON Performing Organization Address [facility] [place] [address] * Specimen to Pathology (surgical or derm) (12/03/2015 8:39 AM EDT) AP Specimen 12/03/2015 8:39 AM EDT 12/03/2015 8:39 AM EDT Narrative [facility] - 12/03/2015 8:39 AM EDT Specimen requisition ordered. ??Separate Pathology report to follow Ken Sanders MD PATHOLOGY/CYTOLOGY Kate SHIELDS Performing Organization Address [facility] [place] [address] * Specimen to Pathology (surgical or derm) (12/03/2015 8:39 AM EDT) AP Specimen 12/03/2015 8:39 AM EDT 12/03/2015 8:39 AM EDT Narrative [facility] - 12/03/2015 8:39 AM EDT Specimen requisition ordered. ??Separate Pathology report to follow Ken Sanders MD PATHOLOGY/CYTOLOGY Kate SHIELDS Performing Organization Address [facility] [place] [address] * UPPER GI ENDOSCOPY (12/03/2015 8:21 AM EDT) UPPER GI ENDOSCOPY [facility] Patient Name: Jeannie Trisha ? Procedure Date: 12/03/2015 8:21 AM ? Date of : 1960 ? Age: 55 ? Order #: [id number] ? Procedure: ? Upper GI endoscopy Indications: [...] Babin) documented in this encounter Care Teams Lpn Care Manager Relationship Specialty Start Date End Date Aman Lawrence APRN [address] [place] [address] PCP - General 06/16/10 06/27/18 documented as of this encounter
--- OUTSIDE RECORDS SUMMARY | 2024-08-15 13:37 | XMS_ITS | Encounter Summary ---
[place] [address] Care Team Providers Care Roll Line Operator Name Role Phone Yisel Marroquin MD Primary Care Provider Unavail able Encounter Details Date Type Department Care Team (Late st Contact Info) Description 10/29/2015 Orders Only Radiology and Cardiology Results [address] [place] [address] Apd Conversion, Results Provider, Social [...] filedocumented in this encounter Care Teams Roll Line Operator Relationship Specialty Start Date End Date Yisel Marroquin MD PCP - General 11/13/18 03/05/19 documented as of this encounter
--- OUTSIDE RECORDS SUMMARY | 2024-08-15 13:37 | XMS_ITS | Encounter Summary ---
Author Organization [facility] [place] [address] Care Team Providers Care Psychiatric Attendant Name Role Phone Yisel Marroquin MD Primary Care Provider Unavail able Encounter Details Date Type Department Care Team (Late st Contact Info) Description 08/03/2016 Abstract [place] Conversion Results [address] [place] [address] Apd Conversion, Flowsheet Provider, Social History Tobacco [...] on filedocumented in this encounter Care Teams Psychiatric Attendant Relationship Specialty Start Date End Date Yisel Marroquin MD PCP - General 11/13/18 03/05/19 documented as of this encounter
--- OUTSIDE RECORDS SUMMARY | 2024-08-15 13:37 | XMS_ITS | Encounter Summary ---
Author Organization [facility] Address [place] [address] Care Team Providers Care Machine Burrer Name Role Phone Yisel Marroquin MD Primary Care Provider Unavail able Encounter Details Date Type Department Care Team (Late st Contact Info) Description 07/01/2016 Abstract [place] Conversion Results [address] [place] [address] Apd Conversion, Flowsheet Provider, Social History Tobacco [...] filedocumented in this encounter Care Teams Machine Burrer Relationship Specialty Start Date End Date Yisel Marroquin MD PCP - General 11/13/18 03/05/19 documented as of this encounter
--- OUTSIDE RECORDS SUMMARY | 2024-08-15 13:37 | XMS_ITS | Encounter Summary ---
Author Organization [facility] [place] [address] Care Team Providers Care Mangle Tender Cloth Name Role Phone Yisel Marroquin MD Primary Care Provider Unavail able Encounter Details Date Type Department Care Team (Late st Contact Info) Description 08/12/2014 Abstract [place] De Santiago Krystal Conversion Results [address] [place] [address] Apd Conversion, Flowsheet Provider, Social History Tobacco [...] on filedocumented in this encounter Care Teams Mangle Tender Cloth Relationship Specialty Start Date End Date Yisel Marroquin MD PCP - General 11/13/18 03/05/19 documented as of this encounter
--- OUTSIDE RECORDS SUMMARY | 2024-08-15 13:37 | XMS_ITS | Encounter Summary ---
Author Organization [facility] [place] [address] Care Team Providers Care Merchandise For Resale Purchasing Agent Name Role Phone Yisel Marroquin MD Primary Care Provider Unavail able Encounter Details Date Type Department Care Team (Late st Contact Info) Description 12/13/2014 Abstract [place] Conversion Results [address] [place] [address] Apd Conversion, Flowsheet Provider, Social History Tobacco [...] on filedocumented in this encounter Care Teams Merchandise For Resale Purchasing Agent Relationship Specialty Start Date End Date Yisel Marroquin MD PCP - General 11/13/18 03/05/19 documented as of this encounter
--- OUTSIDE RECORDS SUMMARY | 2024-08-15 13:37 | XMS_ITS | Encounter Summary ---
Author Organization [facility] [place] [address] Care Team Providers Care Trial Court Judge Name Role Phone Aman Lawrence APRN Primary Care Provider +1 [phone] Encounter Details Date Type Department Care Team (Late st Contact Info) Description 10/10/2015 Telephone [place] [address] Tamar Guerra, RD [facility] [place] [address] Social History Tobacco Use Types Packs/Day Years [...] mainly soft foods. Typical Day is: [employer] [place] Instant Breakfast in the AM and PM, [...] filedocumented in this encounter Care Teams Trial Court Judge Relationship Specialty Start Date End Date Aman Lawrence APRN [address] [place] [address] PCP - General 06/16/10 06/27/18 documented as of this encounter
--- OUTSIDE RECORDS SUMMARY | 2024-08-15 13:37 | XMS_ITS | Encounter Summary ---
Author Organization [facility] Address [facility] [place] [address] Care Team Providers Care Administrative Support Coordinator Name Role Phone Aman Lawrence APRN Primary Care Provider +1 [phone] Reason for Visit * Reason Comments Chest Pain Coronary Artery Disease Encounter Details Date Type Department Care Team (Late st Contact Info) Description 05/10/2016 8:00 AM EDT Office Visit Cardiology at [address] [address] Freddy Mejias MD [facility] [address] Chest pain, unspecified type Social History Tobacco [...] want to know if it is working. [phone]. I will see you back in 1 [...] ??? Osteoporosis DEXA done at [facility] on 10/29/15: osteoporosis at the left hip [...] GI ENDOSCOPY performed by DEE WRIGHT at [facility] ??? Abdomen surgery ??? Hysterectomy ??? Pro upper gi endoscopy, biopsy N/A 12/03/2015 EGD WITH BIOPSY performed by Ken Sanders MD at [facility] No family history on [...] Social history: , no children. Lives in [place]. 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 Smoking: Active smoker, 2ppd [...] complex vitamins (B COMPLEX-VITAMIN B12) tablet ??? rxezdkddnher-pkzd-hukbhmod (COMPLETE MULTIVITAMIN) Tab tablet 1 Tablet(s), PO, Once daily ??? calcium citrate-vitamin D (CITRACAL+D) 315-200 mg-unit per tablet 2 Tablet(s), PO, Twice daily ??? ergocalciferol (VITAMIN D) 50,000 unit capsule [id number], PO, TWICE a week No current facility-administered [...] 8:52 AM EDT) Neutrophil % 66.6 % [facility] Neutrophil Absolute 7.47(H) 1.70 - 6.10 x10(3)/mc L [facility] Lymph % 25.1 % [facility] Lymphocytes Abs 2.8 0.9 - 3.2 x10(3)/mc L [facility] Monocyte % 6.2 % [facility] Monocyte Abs 0.7 0.3 - 0.9 x10(3)/mc L [facility] Eos % 1.1 % [facility] Eosinophils Abs 0.1 0.0 - 0.4 x10(3)/mc L [facility] Basophil % 0.6 % [facility] Baso Absolute 0.1 0.0 - 0.1 x10(3)/mc L [facility] Immature Gran % 0.40 % [facility] Comment: Immature granulocytes(IG's)percentage and absolute count will include metamyelocytes, myelocytes, and promyelocytes. Blood smears from CBCs yielding IG's will be scanned manually for concordance. If this scan disagrees with the automated IG or if promyelocytes are noted, a manual differential will be performed. Immature Gran Absolute 0.04 0.00 - 0.04 x10(3)/mc L [facility] Blood specimen (specimen) 05/10/2016 8:52 AM EDT 05/10/2016 9:15 AM EDT Narrative Resulting Agency Comment Spec In Lab Freddy Mejias MD HEMATOLOGY ORDERABLE S [facility] [place] [address] * (ABNORMAL) Hemogram (05/10/2016 8:52 AM EDT) White Blood Cell 11.2(H) 4.0 - 9.5 x10(3)/[facility] Red Blood Cell 4.44 4.00 - 5.21 x10(6)/mc L [facility] Hemoglobin 14.0 11.7 - 15.5 gm/dL [facility] Hematocrit 43.0 35.7 - 45.8 % [facility] Mean Cell Volume 96.8(H) 82.6 - 94.[address] [facility] Mean Cell Hemoglobin 31.5 27.1 - 32.[address] [facility] Mean Cell Hemoglobin Concentration 32.6 31.7 - 35.0 gm/dL [facility] Platelet 232 145 - 357 x10(3)/mc L [facility] RDW Standard Deviation 46.5(H) 37.0 - 46.0 [facility] RDW coefficient of variation 13.0 11.5 - 14.1 % [facility] Mean Platelet Volume 10.2 7.6 - 12.9 [facility] NRBC% auto 0.0 % [facility] NRBC Absolute 0.000 0.000 - 0.000 x10(3)/ L [facility] Blood specimen (specimen) 05/10/2016 8:52 AM EDT 05/10/2016 9:15 AM EDT Narrative Resulting Agency Comment Spec In Lab Freddy Mejias MD HEMATOLOGY ORDERABLE S [facility] [place] [address] * EKG 12 Lead (05/10/2016 7:53 AM EDT) Ventricular rate 50 BPM MUSE SYSTEM Atrial Rate 50 BPM MUSE SYSTEM P-R Interval 150 ms MUSE SYSTEM QRS Duration 86 ms MUSE SYSTEM Q-T Interval 438 ms MUSE SYSTEM QTC Calculated (Bezet) 399 ms MUSE SYSTEM Calculated P [place] 55 degrees MUSE SYSTEM Calculated R [place] 61 degrees MUSE SYSTEM Calculated T [place] 36 degrees MUSE SYSTEM INTERPRETATION Sinus bradycardia Low voltage QRS Borderline ECG When compared with ECG of 10-MAY-2013 08:23, Nonspecific T wave abnormality no longer evident in Anterolateral leads Confirmed by MD ASPEN, EDWARD ([id number]) on 05/10/2016 12:03:03 PM MUSE SYSTEM 05/10/2016 7:53 AM EDT 05/10/2016 12:03 PM EDT Freddy Mejias MD ECG ORDERABLES Performing Organization Address [facility] Co de Phone Number MUSE SYSTEM * Scan Doc: Lab (05/03/2016) Historical Provider MEDIA MGR SCAN EX T ORDR/RSLT documented in this encounter Visit Diagnoses Diagnosis Chest pain, unspecified type documented in this encounter Care Teams Administrative Support Coordinator Relationship Specialty Start Date End Date Aman Lawrence APRN [address] [place] [address] PCP - General 06/16/10 06/27/18 documented as of this encounter
--- OUTSIDE RECORDS SUMMARY | 2024-08-15 13:37 | XMS_ITS | Encounter Summary ---
Author Organization [facility] Address [address] [facility] [place] [address] Care Team Providers Care Horse Show Judge Name Role Phone Yisel Marroquin MD Primary Care Provider Unavail able Encounter Details Date Type Department Care Team (Late st Contact Info) Description 01/25/2015 Interpretation Only Radiology [address] [facility] [place] [address] Unknown None Social History Tobacco Use Types [...] 2:54 PM EDT APD Historical Result Principal Freight Sales Broker: ??ISAK ??ESCHBACH RIGHT FOOT: INDICATION: ??Injury. COMPARISON: ??Right ankle, January 25, 2015. FINDINGS: Three views of the right foot show no fracture, dislocation, joint effusion, or foreign body. Isak Benavides DO CHRISTINA/cornelio [id number] CC: Procedure Note Unknown - 01/22/2019 APD Historical Result Principal Freight Sales Broker: ISAK BENAVIDES RIGHT FOOT: INDICATION: Injury. COMPARISON: Right ankle, January 25, 2015. FINDINGS: Three views of the right foot show no fracture, dislocation, jointeffusion, or foreign body. Isak Diazhbzari CHRISTINA/cornelio [id number] CC: Unknown IMG DX ORDERABLES documented in this encounter Visit Diagnoses Not on filedocumented in this encounter Care Teams Horse Show Judge Relationship Specialty Start Date End Date Yisel Marroquin MD PCP - General 11/13/18 03/05/19 documented as of this encounter
--- OUTSIDE RECORDS SUMMARY | 2024-08-15 13:37 | XMS_ITS | Encounter Summary ---
Author Organization [facility] Address [facility] [place] [address] Care Team Providers Care Needle Punch Machine Operator Helper Name Role Phone Yisel Marroquin MD Primary Care Provider Unavail able Encounter Details Date Type Department Care Team (Late st Contact Info) Description 05/01/2015 Abstract [place] Conversion Results [address] [place] [address] Apd Conversion, Flowsheet Provider, Social History Tobacco [...] on filedocumented in this encounter Care Teams Needle Punch Machine Operator Helper Relationship Specialty Start Date End Date Yisel Marroquin MD PCP - General 11/13/18 03/05/19 documented as of this encounter
--- OUTSIDE RECORDS SUMMARY | 2024-08-15 13:37 | XMS_ITS | Encounter Summary ---
[place] [address] Care Team Providers Care Coding Clerk Name Role Phone Yisel Marroquin MD Primary Care Provider Unavail able Encounter Details Date Type Department Care Team (Late st Contact Info) Description 10/21/2014 Orders Only Radiology and Cardiology Results [address] [place] [address] Apd Conversion, Results Provider, Social [...] 116.9 [place] [place] DAY CONVERSION Hemoglobin A1c 6.1(Epic Professional al Lab) 4.5 - 6.2 K[facility] [place]OR[place] DAY CONVERSION 10/21/2014 Results Provider Apd Conversion MD JASON ESTRELLA ORDERABLES [facility] DAY CONVERSION documented in this encounter Visit Diagnoses Not on filedocumented in this encounter Care Teams Coding Clerk Relationship Specialty Start Date End Date Yisel Marroquin MD PCP - General 11/13/18 03/05/19 documented as of this encounter
--- OUTSIDE RECORDS SUMMARY | 2024-08-15 13:37 | XMS_ITS | Encounter Summary ---
Author Organization [facility] Address [facility] [place] [address] Care Team Providers Care Carpentry Specialist Name Role Phone Yisel Marroquin MD Primary Care Provider Unavail able Encounter Details Date Type Department Care Team (Late st Contact Info) Description 05/24/2016 Abstract [place] Rice Conversion Results [address] [place] [address] Apd Conversion, Flowsheet Provider, Social History Tobacco [...] on filedocumented in this encounter Care Teams Carpentry Specialist Relationship Specialty Start Date End Date Yisel Marroquin MD PCP - General 11/13/18 03/05/19 documented as of this encounter
--- OUTSIDE RECORDS SUMMARY | 2024-08-15 13:37 | XMS_ITS | Encounter Summary ---
Author Organization [facility] [place] [address] Care Team Providers Care Motion Picture Director Name Role Phone Yisel Marroquin MD Primary Care Provider Unavail able Encounter Details Date Type Department Care Team (Late st Contact Info) Description 10/29/2015 Orders Only Radiology and Cardiology Results [address] [place] [address] Apd Conversion, Results Provider, Social [...] on filedocumented in this encounter Care Teams Motion Picture Director Relationship Specialty Start Date End Date Yisel Marroquin MD PCP - General 11/13/18 03/05/19 documented as of this encounter
--- OUTSIDE RECORDS SUMMARY | 2024-08-15 13:37 | XMS_ITS | Encounter Summary ---
Author [place] [address] Care Team Providers Care Custom Frame Assembler Name Role Phone Adriana Perla APRN Primary Care Provider +1 -[phone] Encounter Details Date Type Department Care Team (Latest Contact Info) Description 12/18/2015 Multidisciplinary Ca re Committee [place] [address] Sidra Del Toro APRN Social History Tobacco [...] NA Evaluation by a member of the [facility] Bariatric Surgery Program previously: + Staff present at today's meeting: Kasia Crouch MD, Silk Examiner, Skinny Gomez MD, Meena Pena MD, Rajendra [...] on filedocumented in this encounter Care Teams Custom Frame Assembler Relationship Specialty Start Date End Date Adriana Perla APRN [address] [place] [address] PCP - General 06/16/10 06/27/18 documented as of this encounter
--- OUTSIDE RECORDS SUMMARY | 2024-08-15 13:37 | XMS_ITS | Encounter Summary ---
[place] [address] Care Team Providers Care Tailer Off Name Role Phone Yisel Marroquin MD Primary Care Provider Unavail able Encounter Details Date Type Department Care Team (Late st Contact Info) Description 05/14/2015 Orders Only Radiology and Cardiology Results [address] [place] [address] Apd Conversion, Results Provider, Social [...] Lab) K[facility] FLOR[facility] DAY CONVERSION LDL Cholesterol 46(Pet Feeder al Lab) KORI FLORES DAY CONVERSION HDL Cholesterol 40(Pet Feeder al Lab) 40 - 60 KORI FLORES DAY CONVERSION Triglyceride 174(ExtH) 30 - 150 KORI P NATALEE DAY CONVERSION Cholesterol, Total 121(Exter nal Lab) 50 - 200 K[facility] FLOR[facility] DAY CONVERSION 05/14/2015 Results Provider Apd Conversion MD JASON ESTRELLA ORDERABLES [facility] [place] DAY CONVERSION documented in this encounter Visit Diagnoses Not on filedocumented in this encounter Care Teams Tailer Off Relationship Specialty Start Date End Date Yisel Marroquin MD PCP - General 11/13/18 03/05/19 documented as of this encounter
--- OUTSIDE RECORDS SUMMARY | 2024-08-15 13:37 | XMS_ITS | Encounter Summary ---
Author Organization [facility] [place] [address] Care Team Providers Care Forcer Maker Name Role Phone Aman Lawrence APRN Primary Care Provider +1 -[phone] Reason for Visit * Reason Onset Date Comments Chest Pain 04/26/2016 Encounter Details Date Type Department Care Team (Late st Contact Info) Description 05/03/2016 Telephone Cardiology at [address] [phone] Yadira Sung RN Chest Pain Social History [...] (Bezet) 399 ms MUSE SYSTEM Calculated P [place] 55 degrees MUSE SYSTEM Calculated R [place] 61 degrees MUSE SYSTEM Calculated T [place] 36 degrees MUSE SYSTEM INTERPRETATION Sinus bradycardia [...] type documented in this encounter Care Teams Forcer Maker Relationship Specialty Start Date End [place] [address] PCP - General 06/16/10 06/27/18 documented as of this encounter
--- OUTSIDE RECORDS SUMMARY | 2024-08-15 13:37 | XMS_ITS | Encounter Summary ---
Author Organization [facility] Address [facility] [place] [address] Care Team Providers Care Final Dressing Cutter Name Role Phone Aman Lawrence APRN Primary Care Provider +1 [phone] Encounter Details Date Type Department Care Team (Late st Contact Info) Description 09/28/2016 - 09/28/2016 11:59 PM EST Hospital Encounter Radiology Library at [facility] [place] [phone] [facility] Disposition: Home Social History [...] vitamins (B COMPLEX-VITAMIN B12) tablet 09/23/2010 11/19/2016 adhoatlcwdkw-dulk-pgylxi ls (COMPLETE MULTIVITAMIN) Tab tablet 1 Tablet(s), PO, Once daily 09/23/2010 11/19/2016 calcium citrate-vitamin D (CITRACAL+D) 315-200 mg-unit per tablet 2 Tablet(s), PO, Twice daily 09/23/2010 11/19/2016 ergocalciferol (VITAMIN D) 50,000 unit capsule [id number], PO, TWICE a week 09/23/2010 11/19/2016 documented [...] Janie MCKENNA FILM LIBRARY ORD ERABLES [place], [place] documented in this encounter Visit Diagnoses Diagnosis Pain Generalized pain documented in this encounter Care Teams Final Dressing Cutter Relationship Specialty Start Date End Date Aman Lawrence APRN [address] [place] [address] PCP - General 06/16/10 06/27/18 documented as of this encounter
--- OUTSIDE RECORDS SUMMARY | 2024-08-15 13:37 | XMS_ITS | Encounter Summary ---
Author Organization [facility] Address [facility] [place] [address] Care Team Providers Care Lucerne Farmer Name Role Phone Yisel Marroquin MD Primary Care Provider Unavail able Encounter Details Date Type Department Care Team (Late st Contact Info) Description 10/29/2015 Interpretation Only Radiology 1 [facility] [place] [address] Unknown None Social History Tobacco Use Types [...] 11:36 AM EDT APD Historical Result Principal Timber Sprinkler: ??MIRIAM Santana?[place] DXA SCAN BONE DENSITY: INDICATION: [...] in 1 year. Miriam Hardy MD MR/mn [id number] Procedure Note Unknown - 01/22/2019 APD Historical Result Principal Timber Sprinkler: MIRIAM HARDY DXA SCAN BONE DENSITY: INDICATION: [...] in 1 year. Miriam Hardy MD /cornelio [id number] Unknown IMG DEXA ORDERABLES documented in this encounter Visit Diagnoses Not on filedocumented in this encounter Care Teams Lucerne Farmer Relationship Specialty Start Date End Date Yisel Marroquin MD PCP - General 11/13/18 03/05/19 documented as of this encounter
--- OUTSIDE RECORDS SUMMARY | 2024-08-15 13:37 | XMS_ITS | Encounter Summary ---
Author Organization [facility] [place] [address] Care Team Providers Care Correspondence School Instructor Name Role Phone Aman Lawrence APRN Primary Care Provider +1 -[phone] Encounter Details Date Type Department Care Team (Late st Contact Info) Description 10/02/2015 Telephone [place] [address] Tamar Guerra, RD [facility] [place] [address] Social History Tobacco Use Types Packs/Day Years [...] oz. Fluid daily. 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 Plan: Rec. Continue with NSA CIB 3 x daily, providing ~40 g protein. Suggested d/c Ensure and try Atkins Shakes, Low CHO Slim Fast or Boost Glucose Control (all available at [employer]) to aid in meeting protein needs. Continue to try solid food as tolerated: Niuean Yogurt, cottage cheese, apple sauce, hard boiled eggs, toast, etc. Goal of 48+ oz. Water daily. Will f/u with program [facility] for next steps. documented in this encounter Plan of Treatment Not on file documented as of this encounter Visit Diagnoses Not on filedocumented in this encounter Care Teams Correspondence School Instructor Relationship Specialty Start Date End Date Aman Lawrence [place] [place] [address] PCP - General 06/16/10 06/27/18 documented as of this encounter
--- OUTSIDE RECORDS SUMMARY | 2024-08-15 13:37 | XMS_ITS | Encounter Summary ---
[place] [address] Care Team Providers Care Exercise Physiology Professor Name Role Phone Yisel Marroquin MD Primary Care Provider Unavail able Encounter Details Date Type Department Care Team (Late st Contact Info) Description 05/14/2015 Orders Only Radiology and Cardiology Results [address] [place] [address] Apd Conversion, Results Provider, Social [...] 116.9 KORI FLORES DAY CONVERSION Hemoglobin A1c 6.0(Jet Handler al Lab) 4.5 - 6.2 KORI FLORES DAY CONVERSION 05/14/2015 Results Provider Apd Conversion MD JASON ESTRELLA ORDERABLES KORI FLORES DAY CONVERSION documented in this encounter Visit Diagnoses Not on filedocumented in this encounter Care Teams Exercise Physiology Professor Relationship Specialty Start Date End Date Yisel Marroquin MD PCP - General 11/13/18 03/05/19 documented as of this encounter
--- OUTSIDE RECORDS SUMMARY | 2024-08-15 13:37 | XMS_ITS | Encounter Summary ---
Author Organization [facility] Address [facility] [address] Care Team Providers Care Buggy Runner Name Role Phone Yisel Marroquin MD Primary Care Provider Unavail able Encounter Details Date Type Department Care Team (Late st Contact Info) Description 09/28/2016 Abstract [place] Conversion Results [address] [place] [address] Apd Conversion, Flowsheet Provider, Social History Tobacco [...] on filedocumented in this encounter Care Teams Buggy Runner Relationship Specialty Start Date End Date Yisel Marroquin MD PCP - General 11/13/18 03/05/19 documented as of this encounter
--- OUTSIDE RECORDS SUMMARY | 2024-08-15 13:37 | XMS_ITS | Encounter Summary ---
Author Organization [facility] Address [facility] [place] [address] Care Team Providers Care Kiln Remover Name Role Phone Aman Lawrence APRN Primary Care Provider +1 -[phone] Encounter Details Date Type Department Care Team (Late st Contact Info) Description 05/19/2016 Telephone Cardiology at [address] [address] Freddy Mejias MD [facility] [place] [address] Social History Tobacco Use Types Packs/Day Years [...] filedocumented in this encounter Care Teams Kiln Remover Relationship Specialty Start Date End Date Aman Lawrence APRN [address] [place] [address] PCP - General 06/16/10 06/27/18 documented as of this encounter
--- OUTSIDE RECORDS SUMMARY | 2024-08-15 13:37 | XMS_ITS | Encounter Summary ---
Author Organization [facility] Address [facility] [place] [address] Care Team Providers Care Flume Maker Name Role Phone Yisel Marroquin MD Primary Care Provider Unavail able Encounter Details Date Type Department Care Team (Late st Contact Info) Description 01/25/2015 Interpretation Only Radiology [address] [facility] [place] [address] Unknown None Social History Tobacco Use Types [...] 2:54 PM EDT APD Historical Result Principal Housing Coordinator: ??ISAK ??ESCHBACH RIGHT ANKLE: INDICATION: ??Injury. COMPARISON: ??Right foot, January 25, 2015. FINDINGS: Three views of the right ankle show soft tissue swelling over the lateral malleolus. ??Three is no fracture, dislocation, or joint effusion. ??The base of the 5th metatarsal is intact. ??The ankle mortise is symmetric. IMPRESSION: Acute injury confined to the lateral soft tissues. Isak DO [place] /[place] [id number] CC: Procedure Note Unknown - 01/22/2019 APD Historical Result Principal Housing Coordinator: ISAK BENAVIDES RIGHT ANKLE: INDICATION: Injury. COMPARISON: Right foot, January 25, 2015. FINDINGS: Three views of the right ankle show soft tissue swelling over the lateralmalleolus. Three is no fracture, dislocation, or joint effusion. The base of the 5thmetatarsal is intact. The ankle mortise is symmetric. IMPRESSION: Acute injury confined to the lateral soft tissues. Isak DO Va KE/mn [id number] CC: Unknown IMG DX ORDERABLES documented in this encounter Visit Diagnoses Not on filedocumented in this encounter Care Teams Flume Maker Relationship Specialty Start Date End Date Yisel Marroquin MD PCP - General 11/13/18 03/05/19 documented as of this encounter
--- OUTSIDE RECORDS SUMMARY | 2024-08-15 13:37 | XMS_ITS | Encounter Summary ---
[place] [address] Care Team Providers Care Digital Solutions Architect Name Role Phone Aman Lawrence APRN Primary Care Provider +1 -[phone] Encounter Details Date Type Department Care Team (Late st Contact Info) Description 10/31/2015 Telephone [place] [address] Niecy Darden, RD Social History Tobacco Use [...] sliced chicken, turkey, and ham along with faroese muffins and whole wheat tortillas. She has [...] filedocumented in this encounter Care Teams Digital Solutions Architect Relationship Specialty Start Date End Date Aman Lawrence APRN [address] [place] [address] PCP - General 06/16/10 06/27/18 documented as of this encounter
--- OUTSIDE RECORDS SUMMARY | 2024-08-15 13:37 | XMS_ITS | Encounter Summary ---
Author Organization [facility] Address [facility] [place] [address] Care Team Providers Care Pyrotechnist Name Role Phone Hoang Castellanos APRN Primary Care Provider Reason for Visit * Reason Comments Medication Refill Encounter Details Date Type Department Care Team (Late st Contact Info) Description 07/12/2014 [place] [address] Tamar Kay MD [facility] [place] [address] Social History Tobacco Use Types Packs/Day Years [...] documented as of this encounter Care Teams Pyrotechnist Relationship Specialty Start Date End Date Hoang Castellanos, SAM [address] [place] [address] PCP - General Family Medicine 03/12/20 documented as of this encounter
--- OUTSIDE RECORDS SUMMARY | 2024-08-15 13:37 | XMS_ITS | Encounter Summary ---
Author Organization [facility] [place] [address] Care Team Providers Care Cook Taco Name Role Phone Aman Lawrence APRN Primary Care Provider +1 [phone] Encounter Details Date Type Department Care Team (Late st Contact Info) Description 12/03/2015 9:00 AM EDT - 12/03/2015 9:30 AM EDT [place] [phone] Ken Sanders MD [facility] [place] [address] EGD WITH BIOPSY (WRVU 2.39) Social History [...] better as expected. Tuesday-Tuesday Same Day Endo [phone]-[id number] Otherwise contact [phone] and ask to speak to the hog pusher distribution superintendent Follow-up care is a ramírez part of your treatment and safety. Be sure to make and go to all appointments, and call your doctor if you are having problems. Instructions have been reviewed and patient expresses understanding * Attachments The following attachments cannot be sent through Care Everywhere. * EGD (UPPER ENDOSCOPY) : POST-OP (CAYMAN ISLANDER) documented in this encounter Medications at [...] vitamins (B COMPLEX-VITAMIN B12) tablet 09/23/2010 11/19/2016 tbkzudqnodno-ctrr-jxbgb als (COMPLETE MULTIVITAMIN) Tab tablet 1 Tablet(s), PO, Once daily 09/23/2010 11/19/2016 calcium citrate-vitamin D (CITRACAL+D) 315-200 mg-unit per tablet 2 Tablet(s), PO, Twice daily 09/23/2010 11/19/2016 ergocalciferol (VITAMIN D) 50,000 unit capsule [id number], PO, TWICE a week 09/23/2010 11/19/2016 documented [...] Report (12/03/2015 8:39 AM EDT) Final Diagnosis [id number] ? Location: 4T; EA11; A The signing [...] ng: (T1) ??sns 12/05/2015 2:25 PM EDT [facility] GI Biopsy 12/03/2015 8:39 AM EDT 12/03/2015 8:39 AM EDT GI Biopsy 12/03/2015 8:39 AM EDT 12/03/2015 8:39 AM EDT Ken Sanders MD PATHOLOGY/CYTOLOGY O ALYSON Performing Organization Address [facility] [place] [place] [address] * Specimen to Pathology (surgical or derm) (12/03/2015 8:39 AM EDT) AP Specimen 12/03/2015 8:39 AM EDT 12/03/2015 8:39 AM EDT Narrative [facility] - 12/03/2015 8:39 AM EDT Specimen requisition ordered. ??Separate Pathology report to follow Ken Sanders MD PATHOLOGY/CYTOLOGY Kate SHIELDS Performing Organization Address [facility] [place] [address] * Specimen to Pathology (surgical or derm) (12/03/2015 8:39 AM EDT) AP Specimen 12/03/2015 8:39 AM EDT 12/03/2015 8:39 AM EDT Narrative [facility] - 12/03/2015 8:39 AM EDT Specimen requisition ordered. ??Separate Pathology report to follow Ken Sanders MD PATHOLOGY/CYTOLOGY Kate SHIELDS Performing Organization Address [facility] [place] [place] [address] * UPPER GI ENDOSCOPY (12/03/2015 8:21 AM EDT) UPPER GI ENDOSCOPY [facility] Endoscopy Patient Name: Jeannie Trisha ? Procedure Date: 12/03/2015 8:21 AM ? Date of : 1960 ? Age: 55 ? Order #: [id number] ? Procedure: ? Upper GI endoscopy Indications: [...] Babin) documented in this encounter Care Teams Cook Taco Relationship Specialty Start Date End Date Aman Lawrence APR[place] [address] [address] PCP - General 06/16/10 06/27/18 documented as of this encounter
--- OUTSIDE RECORDS SUMMARY | 2024-08-15 13:37 | XMS_ITS | Encounter Summary ---
Author Organization [facility] [place] [address] Care Team Providers Care Drop Worker Name Role Phone Yisel Marroquin MD Primary Care Provider Unavail able Encounter Details Date Type Department Care Team (Late st Contact Info) Description 08/04/2015 Abstract [place] Conversion Results [address] [place] [address] Apd Conversion, Flowsheet Provider, Social History Tobacco [...] on filedocumented in this encounter Care Teams Drop Worker Relationship Specialty Start Date End Date Yisel Marroquin MD PCP - General 11/13/18 03/05/19 documented as of this encounter
--- OUTSIDE RECORDS SUMMARY | 2024-08-15 13:37 | XMS_ITS | Encounter Summary ---
Author Organization [facility] [place] [address] Care Team Providers Care Showcase Trimmer Name Role Phone Aman Lawrence APRN Primary Care Provider +1 [phone] Encounter Details Date Type Department Care Team (Late st Contact Info) Description 07/15/2014 Abstract Family Practice at [address] [phone] Sadie Britton, RN Social History Tobacco Use [...] on filedocumented in this encounter Care Teams Showcase Trimmer Relationship Specialty Start Date End Date Aman Lawrence APRN [address] [place] [address] PCP - General 06/16/10 06/27/18 documented as of this encounter
--- OUTSIDE RECORDS SUMMARY | 2024-08-15 13:37 | XMS_ITS | Encounter Summary ---
[place] [address] Care Team Providers Care Sales Enablement Lead Name Role Phone Aman Perla APRN Primary Care Provider +1 -[phone] Encounter Details Date Type Department Care Team (Latest Contact Info) Description 11/20/2015 Multidisciplinary Ca re Committee [place] [address] Sidra Del Toro APRN Social History Tobacco [...] no Evaluation by a member of the [facility] Bariatric Surgery Program previously: + Case presentation by: Dr Williamson Staff present at today's meeting: Dee Wright MD, Recruiting Intern, Skinny Gomez MD, Meena Pena MD, Rajendra [...] performed by DEE WRIGHT at [facility] ENDOSCOPY ??? Abdomen surgery ??? Hysterectomy Plan of care: Smoking cessation, EGD on 12/02, may be candidate for apollo overstitch documented in this encounter Plan of Treatment Not on file documented as of this encounter Visit Diagnoses Not on filedocumented in this encounter Care Teams Sales Enablement Lead Relationship Specialty Start Date End Date Aman Per[place] [address] [place] [address] PCP - General 06/16/10 06/27/18 documented as of this encounter
--- OUTSIDE RECORDS SUMMARY | 2024-08-15 13:37 | XMS_ITS | Encounter Summary ---
Author Organization [facility] Address [facility] [place] [address] Care Team Providers Care Hydro Station Operator Name Role Phone Yisel Marroquin MD Primary Care Provider Unavail able Encounter Details Date Type Department Care Team (Late st Contact Info) Description 09/17/2014 Abstract [place] Conversion Results [address] [place] [address] Apd Conversion, Flowsheet Provider, Social History Tobacco [...] on filedocumented in this encounter Care Teams Hydro Station Operator Relationship Specialty Start Date End Date Yisel Marroquin MD PCP - General 11/13/18 03/05/19 documented as of this encounter
--- OUTSIDE RECORDS SUMMARY | 2024-08-15 13:37 | XMS_ITS | Encounter Summary ---
Author Organization [facility] Address [facility] [place] [address] Care Team Providers Care Direct Service Worker Name Role Phone Yisel Marroquin MD Primary Care Provider Unavail able Encounter Details Date Type Department Care Team (Late st Contact Info) Description 11/13/2015 Abstract [place] Conversion Results [address] [place] [address] Apd Conversion, Flowsheet Provider, Social History Tobacco [...]
--- OUTSIDE RECORDS SUMMARY | 2024-08-15 13:37 | XMS_ITS | Encounter Summary ---
Author Organization [facility] [place] [address] Care Team Providers Care Manager Urgent Care Name Role Phone Yisel Marroquin MD Primary Care Provider Unavail able Encounter Details Date Type Department Care Team (Late st Contact Info) Description 12/11/2015 Orders Only Radiology and Cardiology Results [address] [place] [address] Apd Conversion, Results Provider, Social [...] Lab) KORI FLORES DAY CONVERSION LDL Cholesterol 35(Machine Driller al Lab) KORI FLORES DAY CONVERSION HDL [...] filedocumented in this encounter Care Teams Manager Urgent Care Relationship Specialty Start Date End Date Yisel Marroquin MD PCP - General 11/13/18 03/05/19 documented as of this encounter
--- OUTSIDE RECORDS SUMMARY | 2024-08-15 13:37 | XMS_ITS | Encounter Summary ---
Author Organization [facility] [place] [address] Care Team Providers Care Coin Wrapping Machine Operator Name Role Phone Yisel Marroquin MD Primary Care Provider Unavail able Encounter Details Date Type Department Care Team (Late st Contact Info) Description 10/29/2014 Abstract [place] Conversion Results [address] [place] [address] Apd Conversion, Flowsheet Provider, Social History Tobacco [...] on filedocumented in this encounter Care Teams Coin Wrapping Machine Operator Relationship Specialty Start Date End Date Yisel Marroquin MD PCP - General 11/13/18 03/05/19 documented as of this encounter
--- OUTSIDE RECORDS SUMMARY | 2024-08-15 13:37 | XMS_ITS | Encounter Summary ---
Author Organization [facility] Address [facility] [place] [address] Care Team Providers Care Musical Instrument Maker Or Repairer Name Role Phone Aman Lawrence APRN Primary Care Provider +1 -[phone] Reason for Visit * Reason Comments Chest Pain Coronary Artery Disease Encounter Details Date Type Department Care Team (Latest Contact Info) Description 06/14/2016 9:00 AM EST Office Visit Cardiology at [address] [address] Freddy Mejias MD [facility] [place] [address] Atherosclerosis of [place] coronary artery of [place] heart without angina pectoris; History of cigarette [...] List Diagnosis ??? Osteoporosis DEXA done at [facility] on [...] WRIGHT at [facility] ENDOSCOPY ??? Abdomen surgery ??? Hysterectomy ??? Pro upper gi endoscopy, biopsy N/A 12/03/2015 EGD WITH BIOPSY performed by Ken Sanders MD at [facility] ENDOSCOPY No family history on file. [...] Social history: , no children. Lives in [place]. 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 ezkwevmtvbjx-ypti-ttzxtjyg (COMPLETE MULTIVITAMIN) Tab tablet 1 Tablet(s), PO, Once daily ??? calcium citrate-vitamin D (CITRACAL+D) 315-200 mg-unit per tablet 2 Tablet(s), PO, Twice daily ??? ergocalciferol (VITAMIN D) 50,000 unit capsule [id number], PO, TWICE a week ??? isosorbide mononitrate [...] this encounter Visit Diagnoses Diagnosis Atherosclerosis of [place] coronary artery of [place] heart without angina pectoris History of cigarette smoking documented in this encounter Care Teams Musical Instrument Maker Or Repairer Relationship Specialty Start Date End Date Aman Lawrence APRN [address] [place] [address] PCP - General 06/16/10 06/27/18 documented as of this encounter
--- OUTSIDE RECORDS SUMMARY | 2024-08-15 13:37 | XMS_ITS | Encounter Summary ---
Author Organization [facility] Address [facility] [place] [address] Care Team Providers Care Office Technician Name Role Phone Yisel Marroquin MD Primary Care Provider Unavail able Encounter Details Date Type Department Care Team (Late st Contact Info) Description 01/28/2015 Abstract [place] Conversion Results [address] [place] [address] Apd Conversion, Flowsheet Provider, Social History Tobacco [...] filedocumented in this encounter Care Teams Office Technician Relationship Specialty Start Date End Date Yisel Marroquin MD PCP - General 11/13/18 03/05/19 documented as of this encounter
--- OUTSIDE RECORDS SUMMARY | 2024-08-15 13:38 | XMS_ITS | Encounter Summary ---
Author Organization [facility] Address [facility] [place] [address] Care Team Providers Care Centrifugal Operator Name Role Phone Aman Lawrence APRN Primary Care Provider +1 -[phone] Reason for Visit * Reason Onset Date Comments Medication Refill 08/02/2013 Simvastatin Encounter Details Date Type Department Care Team (Late st Contact Info) Description 08/02/2013 Refill Cardiology at [address] [address] Freddy Mejias MD [facility] [address] Medication Refill (Simvastatin) Social History Tobacco Use [...] Coronary atherosclerosis of unspecified type of vessel, tanana or graft documented in this encounter Care Teams Centrifugal Operator Relationship Specialty Start Date End Date Aman Lawrence APRN [address] [place] [address] PCP - General 06/16/10 06/27/18 documented as of this encounter
--- OUTSIDE RECORDS SUMMARY | 2024-08-15 13:38 | XMS_ITS | Encounter Summary ---
[place] [address] Care Team Providers Care Third Steel Pourer Name Role Phone Aman Lawrence APRN Primary Care Provider +1 -[phone] Reason for Visit * Reason Onset Date Comments Other 06/04/2013 ?PPI with Plavix Encounter Details Date Type Department Care Team (Late st Contact Info) Description 06/04/2013 Telephone Cardiology at [address] [phone] Irasema Mohan RN Other (?PPI with Plavix) [...] on filedocumented in this encounter Care Teams Third Steel Pourer Relationship Specialty Start Date [place] [address] PCP - General 06/16/10 06/27/18 documented as of this encounter
--- OUTSIDE RECORDS SUMMARY | 2024-08-15 13:38 | XMS_ITS | Encounter Summary ---
[place] [address] Care Team Providers Care Apprenticeship Representative Name Role Phone Aman Lawrence APRN Primary Care Provider +1 -[phone] Encounter Details Date Type Department Care Team (Late st Contact Info) Description 02/22/2014 3:50 PM EDT [place] [address] Jovany Cerda MD Kidney stone (Primary Dx) [...] kidney stone. She was seen in the [facility] ED on 02/11/14 with left flank [...] GI ENDOSCOPY performed by DEE WRIGHT at [facility] ENDOSCOPY ??? Abdomen surgery ??? Hysterectomy [...] complex vitamins (B COMPLEX-VITAMIN B12) tablet ??? uvpijvifcqtb-ugqw-csrkfdgp (COMPLETE MULTIVITAMIN) Tab tablet 1 Tablet(s), PO, Once daily ??? calcium citrate-vitamin D (CITRACAL+D) 315-200 mg-unit per tablet 2 Tablet(s), PO, Twice daily ??? ergocalciferol (VITAMIN D) 50,000 unit capsule [id number], PO, TWICE a week Allergies Allergen Reactions [...] ? pm) Patient Info ID #: ? [id number] ?: ??[birth year] (53 yrs) Name: ? JEANNIE Lawson APOLINAR ?Visit Date: 03/11/2014 03:57 pm Performed By Performed By: ?Elsa Guerra RDMS Associate: ? Wilfrido Stuart DO Attending: ? Christiano SLADE, Elba Carbajal Referred By: ? JOVANY CERDA MD Service(s) Provided ??URETRO - Retroperitoneal Complete - [id number] ? [id number] Indications ??kidney stone Right Kidney Size (cm) [...] 03/11/2014 04:10 pm) Patient Info ID #: [id number] : [birth year] (53 yrs) Name: JEANNIE RICO Visit Date: 03/11/2014 03:57 pm Performed By Performed By: Elsa Guerra RDMS Associate: Wilfrido Stuart DO Attending: Elba Alvarado MD Referred By: JOVANY CERDA MD Service(s) Provided URETRO - Retroperitoneal Complete - [id number] Indications kidney stone Right Kidney Size (cm) [...] ? Ordered By: JOVANY CERDA ? MR#: [id number] ?LOC: ??5B ? /Sex: ??1960 (53 years), ? Female ? PROCEDURE: Urine Culture ?SOURCE: U CC ? COLLECTED: 02/22/2014 17:18 ? STARTED: 02/22/2014 17:19 ? FINAL REPORT ? Final Report ? Verified:2013 15:43 ? 1,000-9,000 cfu/ml Gram Positive organisms , probable contaminant ? [facility] Urine specimen obtained by clean catch procedure (specimen) 02/22/2014 5:18 PM EDT 02/22/2014 5:18 PM EDT Narrative Resulting Agency Comment Spec In Lab Jovany Cerda MD MICROBIOLOGY - [facility] AL ORDERABLES Performing Organization Address City/State/[facility] Co de Phone Number CERNER MILLENNIUM [...] Urine Dipstick Clear Clear CERNER MILLENNIUM Specific Pax Urine Automated 1.019 1.002 - 1.030 CERNER [...] kidney documented in this encounter Care Teams Apprenticeship Representative Relationship Specialty Start Date End Date Aman Lawrence APRN [address] [place] [address] PCP - General 06/16/10 06/27/18 documented as of this encounter
--- OUTSIDE RECORDS SUMMARY | 2024-08-15 13:38 | XMS_ITS | Encounter Summary ---
Author Organization [facility] [place] [address] Care Team Providers Care Toll Patrolman Name Role Phone Adriana Perla APRN Primary Care Provider [phone] Reason for Referral * Rehabilitation (Routine) - Closed Specialty Diagnoses / Procedures Referred By Vanita dimas Referred To Contact Cardiology Diagnoses Unstable angina Freddy Mejias MD [facility] [place] [address] [facility] [place] [address] Referral ID Status Reason Start Date Expiration Date V isits Requested Visits Authorized [id number] Closed Evaluate and Treat 04/17/2013 10/14/2013 1 1 Reason for Visit * Reason Comments Chest Pain Encounter Details Date Type Department Care Team (Latest Contact Info) Description 04/14/2013 11:39 PM EDT - 04/17/2013 3:43 PM EDT Hospital Encounter Intermediate [place] [phone] Tavon Reed MD [facility] [place] [address] Freddy Mejias MD [facility] [address] Unstable angina; Chronic pain Discharge Disposition: Home [...] 2PM Dr. Stephanie Osman 5 / [place] [address] May 10, 8:10AM Ambrosio Maloney, Cardiology [facility] Your Primary Care Provider: ADRIANA PERLA, BUSINESS MACHINES TEACHER [address] / [place] [address] For questions regarding this document or issues relating to this hospitalization on the Medical Service, please contact your inpatient physician through the [facility] Driver Retraining Instructor . Issues afterhours and on weekends will be handled by the Hospitalist staff on-call. * Attachments The following attachments cannot be sent through Care Everywhere. * PERCUTANEOUS CORONARY INTERVENTION: WHAT TO EXPECT AT HOME (HUNGARIAN) documented in this encounter Medications at Time [...] vitamins (B COMPLEX-VITAMIN B12) tablet 09/23/2010 11/19/2016 wrknpyenhjyt-zrmh-lze erals (COMPLETE MULTIVITAMIN) Tab tablet 1 Tablet(s), PO, Once daily 09/23/2010 11/19/2016 calcium citrate-vitamin D (CITRACAL+D) 315-200 mg-unit per tablet 2 Tablet(s), PO, Twice daily 09/23/2010 11/19/2016 ergocalciferol (VITAMIN D) 50,000 unit capsule [id number], PO, TWICE a week 09/23/2010 11/19/2016 documented as of this encounter Progress Notes * Margarita Sharma RN - 04/17/2013 3:37 PM EDT 1540- Discharge orders available. Pt and critical care physician assistant given discharge AVS, discharge summary, percutaneous intervention care instructions, medication information, diabetes tool kit and nutrition information via verbal and written communication. Pt and critical care physician assistant expressed a correct verbal understanding of discharge instructions, percutaneous intervention care instructions and medication information. Pt disconnected from telemetry and IVs removed. 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 Recommend a daily multivitamin [...] at this time. Andres Good, PT Beeper# [id number] * Freddy Mejias MD - 04/17/2013 5:23 [...] tomorrow as appropriate. Andres Good PT Beeper# [id number] * Jeremy Radford OT - 04/16/2013 10:24 AM EDT Chart reviewed and orders received. 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 RN reports patient mobilizingwell and able to perform own ADLS. We will monitor and f/u as needed for evaluation. Jeremy Radford OTR/L [id number] * Freddy Mejias MD - 04/16/2013 6:10 [...] Pantoprazole 40mg daily - IVF: OFF / Henrandez: OFF - Diet: Carb-controlled diet - PT/OT consulted - Code Status: FULL CODE (DPOA: Rae, elder sister) Breanna Somers DO (PGY-1) Internal Medicine Resident Pager [phone] STAFF ADDENDUM Patient interviewed and examined. Medical [...] tablets and recommended she follow-up with a Elevator Repair Mechanic. This appointment was scheduled for 04/19 (5 [...] with 325mg of Aspirin in route to [facility]. While in the ED, she had another [...] 05/12/00 Open cholecystectomy ~1991 CHIP/BSO 1985 in [place] for ovarian cyst Complete dental extractions 1998 [...] Social history: , no children. Lives in [place]. 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 Smoking: Active smoker, 2ppd Alcohol: Prior alcoholic, [...] story is co ncerning for a Type-I NC. I suspect she will need a Cardiac [...] Rae, elder sister) Kasia Anthony, PGY-2 Pager [phone] STAFF ADDENDUM Patient interviewed and examined. Medical [...] 04/18/2013 1:04 PM EDTAssociated Order(s): SCAN DOC: SLOPE HOIST OPERATOR * Provider, Scanning - 04/16/2013 4:59 PM EDTAssociated Order(s): CARDIAC CATHETERIZATION * Cydney Mccurdy - 04/16/2013 11:59 AM EDTAssociated Order(s): CARDIAC CATHETERIZATION documented in this encounter ED Notes * Donna Saunders RN - 04/15/2013 12:19 AM EDT Awaiting transfer to [facility]. * Donna Saunders RN - [...] has arragned for her to see a ms sql developer this coming . She comes in tonight [...] Score for ED patients with possible ACS, ([facility] 2009February 03:182(10):4037-30): 1) Age >= 65 years? +1 2) [...] of 19%. Score: 14-day triple point (mortality, NC, revascularization) 0 1.8% 1 4.0% 2 8.3% [...] to their service. Tavon Reed MD 04/14/13 5470 Recent Results (from the past 24 hour(s)) [...] URINE DIPSTICK Component Value Range POC Sp [place] 1.010 1.002 - 1.030 POC pH, UA [...] tablets and recommended she follow-up with a Elevator Repair Mechanic. This appointment was scheduled for 04/19 (5 [...] with 325mg of Aspirin in route to [facility]. While in the ED, she had another [...] complex vitamins (B COMPLEX-VITAMIN B12) tablet Oral lteuculneuje-acer-wcimapkk (COMPLETE MULTIVITAMIN) Tab tablet 1 Tablet(s), PO, Once daily, Oral calcium citrate-vitamin D (CITRACAL+D) 315-200 mg-unit per tablet 2 Tablet(s), PO, Twice daily, Oral ergocalciferol (VITAMIN D) 50,000 unit capsule [id number], PO, TWICE a week, Oral varenicline (CHANTIX) [...] Dr. Stephanie Osman [address] [place] [address] May 10, 8:10AM Ambrosio Maloney, Cardiology [facility] 4A Your Primary Care Provider: [address] / [place] [address] For questions regarding this document or issues relating to this hospitalization on the Medical Service, please contact your inpatient physician through the [facility] Driver Retraining Instructor . Issues afterhours and on weekends will be handled by the Hospitalist staff on-call. General Instructions None Future Appointments and Orders Future Appointments: Provider: Department: Dept Phone: Center: 05/03/2013 1:30 PM [facility] Cardiac Rehab Prog Non-Invasive Cardiology Lab [phone] None 05/10/2013 8:10 AM Freddy Mejias MD Cardiology [phone] [facility] Joint Appt Nurse One Cardiology Intake, FABIANA LYONS 4A [phone] [facility] Future Orders Please Complete By Expires Referral to Cardiac Rehab [[id number] Custom] Process Instructions: If no progress note charted, please enter Clinical details in comments. Scheduling Instructions: Comments: Cardiac rehab at [facility] Questions: Responses: Reason for referral Angina, PCI Provider Contact Information: [place] [address] Discharge References/Attachments: Discharge References/Attachments PERCUTANEOUS CORONARY INTERVENTION: WHAT TO EXPECT AT HOME (HUNGARIAN) Signed: Jefe Sharma, PGY-3 DATE: 04/19/13 * [...] parameters for home exercise. Phase II Referral: [facility], intake 05/03 at 1:30 Activity Summary: By [...] distant, but clear. On quality assurance monitor she is in NSR no ectopy. [...] Procedure Name Priority Date/Time Associated Diagnosis Comments SLOPE HOIST OPERATOR SCAN 04/18/2013 1:04 PM EDT CARDIAC CATHETERIZATION [...] Routine 04/16/2013 1:16 PM EDT CARDIAC ENZYMES ([facility]) STAT 04/16/2013 12:00 PM EDT ECHOCARDIOGRAM TRANSTHORACIC [...] Routine 04/15/2013 11:27 AM EDT CARDIAC ENZYMES ([facility]) Routine 04/15/2013 10:28 AM EDT APTT STAT 04/15/2013 10:28 AM EDT XR CHEST PA AND LATERAL Routine 04/15/20 13 8:31 AM EDT POCT GLUCOSE Routine 04/15/2013 7:59 AM EDT EKG 12-LEAD Routine 04/15/2013 7:17 AM EDT Unstable angina XR CHEST PA AND LATERAL STAT 04/15/20 13 5:07 AM EDT CARDIAC ENZYMES ([facility]) Routine 04/15/2013 4:54 AM EDT TSH Routine [...] in this encounter Results * SCAN DOC: SLOPE HOIST OPERATOR (04/18/2013 1:04 PM EDT) Anatomical Region Laterality [...] Glucose, POC 138 60 - 199 mg/dL [facility] Comment: Supplemental ranges: <110 mg/dL before meals <200 mg/dL all other times of the day Blood specimen (specimen) 04/17/2013 11:50 AM EDT 04/17/2013 11:50 AM EDT Freddy Mejias MD POINT OF CARE TEST O RDERABLES [facility] * (ABNORMAL) Hemoglobin (04/17/2013 11:13 AM EDT) Hemoglobin 10.2(L) 11.2 - 15.7 gm/dL [facility] Blood specimen (specimen) 04/17/2013 11:13 AM EDT 04/17/2013 11:27 AM EDT Narrative Resulting Agency Comment Spec In Lab Freddy Mejias MD HEMATOLOGY ORDERABLE S Performing Organization Address [facility] Co de Phone Number [facility] * POCT Glucose (04/17/2013 7:37 AM EDT) Pathologist [facility] Glucose, POC 95 60 - 199 mg/dL [facility] Comment: Supplemental ranges: <110 mg/dL before meals <200 mg/dL all other times of the day Blood specimen (specimen) 04/17/2013 7:37 AM EDT 04/17/2013 7:37 AM EDT Freddy Mejias MD POINT OF CARE TEST O RDERABLES Performing Organization Address [facility] de Phone Number [facility] * EKG 12 Lead (04/17/2013 7:21 AM EDT) Ventricular rate 49 BPM MUSE SYSTEM Atrial Rate 49 BPM MUSE SYSTEM P-R Interval 150 ms MUSE SYSTEM QRS Duration 88 ms MUSE SYSTEM Q-T Interval 460 ms MUSE SYSTEM QTC Calculated (Bezet) 415 ms MUSE SYSTEM Calculated P Edna 41 degrees MUSE SYSTEM Calculated R Edna 63 degrees MUSE SYSTEM Calculated T Edna 139 degrees MUSE SYSTEM INTERPRETATION Marked sinus [...] Reed MD ECG ORDERABLES Performing Organization Address [facility] Co de Phone Number MUSE SYSTEM * (ABNORMAL) Differential, Automated (04/17/2013 3:51 AM EDT) Pathologist [facility] Neutrophil % 75.0(H) 34.0 - 71.0 % [...] EDT Tavon Reed MD HEMATOLOGY ORDERABLE S [facility]IE * (ABNORMAL) Basic Metabolic Panel (non-fasting) (04/17/2013 3:51 AM EDT) Glucose 102 60 - 199 mg/dL [facility] Comment:Diabetes: >=200 mg/d L plus symptoms Blood Urea Nitrogen 9 8 - 18 mg/dL [facility] Creatinine 0.61(L) 0.70 - 1.20 mg/dL [facility] Comment: Please note that the pediatric reference intervals supplied above were not validated at [facility]. Results from pediatric patients should be interpreted [...] Platelet Volume 10.6 9.0 - 12.0 fL [facility] MILL[facility] Blood specimen (specimen) 04/17/2013 3:51 AM EDT 04/17/2013 5:10 AM EDT Narrative Resulting Agency Comment Spec In Lab Tavon Reed MD HEMATOLOGY ORDERABLE S Performing Organization Address [facility]/ZIP Co de Phone Number [facility] * POCT Glucose (04/16/2013 8:26 PM EDT) Glucose, POC 130 60 - 199 mg/dL [facility] Comment: Supplemental ranges: <110 mg/dL before meals <200 mg/dL all other times of the day Blood specimen (specimen) 04/16/2013 8:26 PM EDT 04/16/2013 8:26 PM EDT Freddy Mejias MD POINT OF CARE TEST O RDERABLES [facility] * POCT Glucose (04/16/2013 4:35 PM EDT) Glucose, POC 101 60 - 199 mg/dL [facility] Comment: Supplemental ranges: <110 mg/dL before meals <200 mg/dL all other times of the day Blood specimen (specimen) 04/16/2013 4:35 PM EDT 04/16/2013 4:35 PM EDT Freddy Mejias MD POINT OF CARE TEST O RDERABLES Performing Organization Address [facility] Co de Phone Number [facility] * EKG 12 Lead (04/16/2013 1:16 PM EDT) Pathologist [facility] Ventricular rate 55 BPM MUSE SYSTEM Atrial Rate 55 BPM MUSE SYSTEM QRS Duration 76 ms MUSE SYSTEM Q-T Interval 458 ms MUSE SYSTEM QTC Calculated (Bezet) 438 ms MUSE SYSTEM Calculated P Edna 91 degrees MUSE SYSTEM Calculated R Edna 61 degrees MUSE SYSTEM Calculated T Edna 96 degrees MUSE SYSTEM INTERPRETATION Sinus bradycardia ST & T wave abnormality, consider anterolateral ischemia Abnormal ECG When compared with ECG of 15-APR-2013 12:49, T wave inversion less evident in Lateral leads Confirmed by MD WILBER, SERGO ([id number]) on 04/17/2013 9:58:29 PM MUSE SYSTEM 04/16/2013 1:16 PM EDT 04/17/2013 9:58 PM EDT Sergo Goins MD ECG ORDERABLES Performing Organization Address [facility] Co de Phone Number MUSE SYSTEM * Cardiac Enzymes (04/16/2013 12:00 PM EDT) [facility] Troponin-T <0.03 <=0.03 ng/mL [facility] Comment: 0.03 ng/mL: Represents the 99th percentile upper reference limit for normals. >0.03 ng/mL: Elevated cardiac troponin T level indicative of myocardial damage. Diagnosis of acute, evolving or recent NC requires a typical rise and gradual fall [...] consensus document of the Joint Society of Cardiology/Indian College of Cardiology Committee for the redefinition of myocardial infarction. Journal of the Indian College of Cardiology 2000; 36: 959-969] Creatine Kinase 39 0 - 160 unit/L [facility] Blood specimen (specimen) 04/16/2013 12:00 PM EDT 04/16/2013 12:05 PM EDT Narrative Resulting Agency Comment Spec In Lab Freddy Mejias MD CHEMISTRY ORDERABLES [facility] * Echocardiogram Transthoracic(Leb) (04/16/2013 10:11 AM EDT) EF 60 [facility]ART[facility]te [facility] SYSTEM Anatomical Region Laterality Modality Other 04/16/2013 Narrative 04/16/2013 10:37 AM EDT Procedure: ? Transthoracic Echocardiogram Patient: ? APOLINAR RUSSELL L ?(Age): 1960(52) Med Rec#: ?[id number] ? Sex: ?F ? Site Loc: ?DH ? Ht / Wt: ??163(cm)/115(kg) Pt. Loc: ? Adult Floor ?BSA: ?2.28 Study Date: ?04/16/2013 ? Pt. Type: Inpatient Tape: ? Referring: Tavon Reed Greenhouse Grower: Dereck Diaz Diagnosis:CPT Code(s): ??Echo Full (47519), ??Spectral Doppler (45685), Color Doppler (44037), ??Optison (91118QH), ??Spectral Doppler (74993), Color Doppler (98483), ??Definity (10906ZC), ??Echo Full (31403), Indication(s): ??Angina Rhythm: HR ?BP ?134/69 ?? [...] ? Mid-Inferior ?Normal ? Mid-Inferoseptal ?Normal ? [place]-Septal ? Normal ? [place]-Anterior ? Normal ? [place]-Lateral ?Normal ? [place]-Inferior ? Normal ? [place]-Tip ?Normal ? Chambers ?Value ?Units (Range) ? [...] 10:36:51 Images reviewed and interpretation verified [facility] Cardiac Ultrasound Laboratory Procedure Note Chalino Gomez MD - 04/16/2013 Procedure: Transthoracic Echocardiogram Patient: APOLINAR Lawson DOB(Age): 1960(52) Med Rec#: [id number] Sex: F Site Loc: [facility] Ht / Wt: 163(cm)/115(kg) Pt. Loc: Adult Floor BSA: 2.28 Study Date: 04/16/2013 Pt. Type: Inpatient Tape: Referring: Tavon Reed Greenhouse Grower: Dereck Diaz Diagnosis:CPT Code(s): Echo Full (32117), Spectral Doppler (54342), Color Doppler (55339), Optison (64124BI), Spectral Doppler (83908), Color Doppler (62909), Definity (72385WR), Echo Full (20228), Indication(s): Angina Rhythm: HR BP 134/69 SUMMARY: [...] Normal Mid-Posterolateral Normal Mid-Inferior Normal Mid-Inferoseptal Normal [place]-Septal Normal [place]-Anterior Normal [place]-Lateral Normal [place]-Inferior Normal [place]-Tip Normal Chambers Value Units (Range) IVSd 2D [...] 10:36:51 Images reviewed and interpretation verified [facility] Cardiac Ultrasound Laboratory Tavon Reed MD ECHO ORDERABLES * POCT Glucose (04/16/2013 7:42 AM EDT) Pathologist [facility] Glucose, POC 103 60 - 199 mg/dL [facility]ILL[facility]NI[facility] Comment: Supplemental ranges: <110 mg/dL before meals <200 mg/dL all other times of the day Blood specimen (specimen) 04/16/2013 7:42 AM EDT 04/16/2013 7:42 AM EDT Freddy Mejias MD POINT OF CARE TEST O RDERABLES [facility] * (ABNORMAL) Differential, Automated (04/16/2013 4:07 AM EDT) Pathologist [facility] Neutrophil % 51.8 34.0 - 71.0 % [...] AM EDT 04/16/2013 4:17 AM EDT Tavon eRed MD HEMATOLOGY ORDERABLE S [facility] * (ABNORMAL) Basic Metabolic Panel (non-fasting) (04/16/2013 4:07 AM EDT) [facility] Glucose 97 60 - 199 mg/dL [facility] Comment:Diabetes: >=200 mg/d L plus symptoms Blood Urea Nitrogen 12 8 - 18 mg/dL [facility] Creatinine 0.64(L) 0.70 - 1.20 mg/dL [facility] Comment: Please note that the pediatric reference intervals supplied above were not validated at [facility]. Results from pediatric patients should be interpreted [...] MD HEMATOLOGY ORDERABLE S Performing Organization Address City/[facility]/ZIP Co de Phone Number [facility] * [...] 12.0 - 15.0 sec [facility] Comment: [facility] Transfusion Committee Guidelines: INR less than [...] MD HEMATOLOGY ORDERABLE S Performing Organization Address [facility] Co de Phone Number [facility] * (ABNORMAL) APTT (04/15/2013 10:00 PM EDT) Partial Thromboplastin Time 111(H) 25 - 35 sec [facility] Comment: Recommended therapeutic PTT range for full dose unfractionated heparin is 80-114 seconds. Blood specimen (specimen) 04/15/2013 10:00 PM EDT 04/15/2013 11:27 PM EDT Narrative Resulting Agency Comment Spec In Lab Freddy Mejias MD HEMATOLOGY ORDERABLE S Performing Organization Address [facility] de Phone Number [facility] * POCT Glucose (04/15/2013 8:50 PM EDT) Glucose, POC 127 60 - 199 mg/dL [facility] Comment: Supplemental ranges: <110 mg/dL before meals <200 mg/dL all other times of the day Blood specimen (specimen) 04/15/2013 8:50 PM EDT 04/15/2013 8:50 PM EDT Freddy Mejias MD POINT OF CARE TEST O RDERABLES Performing Organization Address [facility] Co de Phone Number [facility] * (ABNORMAL) APTT (04/15/2013 5:00 PM EDT) Partial Thromboplastin Time 108(H) 25 - 35 sec [facility] Comment: Recommended therapeutic PTT range for full dose unfractionated heparin is 80-114 seconds. Blood specimen (specimen) 04/15/2013 5:00 PM EDT 04/15/2013 11:16 PM EDT Narrative Resulting Agency Comment Spec In Lab Freddy Mejias MD HEMATOLOGY ORDERABLE S Performing Organization Address [facility] Co de Phone Number [facility] * POCT Glucose (04/15/2013 3:54 PM EDT) Glucose, POC 133 60 - 199 mg/dL [facility] Comment: Supplemental ranges: <110 mg/dL before meals <200 mg/dL all other times of the day Blood specimen (specimen) 04/15/2013 3:54 PM EDT 04/15/2013 3:54 PM EDT Freddy Mejias MD POINT OF CARE TEST O RDERABLES Performing Organization Address [facility] de Phone Number [facility] * EKG 12 Lead (04/15/2013 12:49 PM EDT) Ventricular rate 43 BPM MUSE SYSTEM Atrial Rate 43 BPM MUSE SYSTEM P-R Interval 156 ms MUSE SYSTEM QRS Duration 84 ms MUSE SYSTEM Q-T Interval 508 ms MUSE SYSTEM QTC Calculated (Bezet) 429 ms MUSE SYSTEM Calculated P Edna 42 degrees MUSE SYSTEM Calculated R Edna 36 degrees MUSE SYSTEM Calculated T Edna 146 degrees MUSE SYSTEM INTERPRETATION Marked sinus bradycardia ST & T wave abnormality, consider anterolateral ischemia Abnormal ECG When compared with ECG of 15-APR-2013 07:17, (unconfirmed) No significant change was found Confirmed by MD NGHIA, JENNY ([id number]) on 04/16/2013 5:25:05 PM MUSE SYSTEM 04/15/2013 12:4 9 PM EDT 04/16/2013 5:25 PM EDT Tavon Reed MD ECG ORDERABLES Performing Organization Address [facility] de Phone Number MUSE SYSTEM * POCT Glucose (04/15/2013 11:27 AM EDT) Glucose, POC 99 60 - 199 mg/dL [facility] Comment: Supplemental ranges: <110 mg/dL before meals <200 mg/dL all other times of the day Blood specimen (specimen) 04/15/2013 11:27 AM EDT 04/15/2013 11:27 AM EDT Freddy Mejias MD POINT OF CARE TEST O RDERABLES Performing Organization Address [facility] de Phone Number [facility] * Cardiac Enzymes (04/15/2013 10:28 AM EDT) Troponin-T <0.03 <=0.03 ng/mL [facility] Comment: 0.03 ng/mL: Represents the 99th percentile upper reference limit for normals. >0.03 ng/mL: Elevated cardiac troponin T level indicative of myocardial damage. Diagnosis of acute, evolving or recent NC requires a typical rise and gradual fall [...] consensus document of the Joint Society of Cardiology/Indian College of Cardiology Committee for the redefinition of myocardial infarction. Journal of the Indian College of Cardiology 2000; 36: 959-969] Creatine Kinase 47 0 - 160 unit/L [facility] Blood specimen (specimen) 04/15/2013 10:28 AM EDT 04/15/2013 10:37 AM EDT Narrative Resulting Agency Comment Spec In Lab Tavon Reed MD CHEMISTRY ORDERABLES Performing Organization Address [facility] de Phone Number [facility] * (ABNORMAL) APTT (04/15/2013 10:28 AM EDT) Partial Thromboplastin Time 66(H) 25 - 35 sec [facility] Comment: Recommended therapeutic PTT range for full dose unfractionated heparin is 80-114 seconds. Blood specimen (specimen) 04/15/2013 10:28 AM EDT 04/15/2013 10:37 AM EDT Narrative Resulting Agency Comment Spec In Lab Freddy Mejias MD HEMATOLOGY ORDERABLE S Performing Organization Address [facility]/ZIP Co de Phone Number [facility] * XR chest routine [...] POCT Glucose (04/15/2013 7:59 AM EDT) Pathologist [facility] Glucose, POC 108 60 - 199 mg/dL [facility] Comment: Supplemental ranges: <110 mg/dL before meals <200 mg/dL all other times of the day Blood specimen (specimen) 04/15/2013 7:59 AM EDT 04/15/2013 7:59 AM EDT Freddy Mejias MD POINT OF CARE TEST O RDERABLES Performing Organization Address [facility]/ZIP Co de Phone Number [facility] * EKG 12 Lead (04/15/2013 7:17 AM EDT) Ventricular rate 57 BPM MUSE SYSTEM Atrial Rate 57 BPM MUSE SYSTEM P-R Interval 148 ms MUSE SYSTEM QRS Duration 82 ms MUSE SYSTEM Q-T Interval 474 ms MUSE SYSTEM QTC Calculated (Bezet) 461 ms MUSE SYSTEM Calculated P Edna 41 degrees MUSE SYSTEM Calculated R Edna 54 degrees MUSE SYSTEM Calculated T Edna 123 degrees MUSE SYSTEM INTERPRETATION Sinus bradycardia [...] damage. Diagnosis of acute, evolving or recent NC requires a typical rise and gradual fall [...] consensus document of the Joint Society of Cardiology/Indian College of Cardiology Committee for the redefinition of myocardial infarction. Journal of the Indian College of Cardiology 2000; 36: 959-969] Creatine Kinase 36 0 - 160 unit/L [facility] Blood specimen (specimen) 04/15/2013 4:54 AM EDT 04/15/2013 5:33 AM EDT Narrative Resulting Agency Comment Spec In Lab Tavon Reed MD CHEMISTRY ORDERABLES [facility] * Hemoglobin A1c (04/15/2013 4:54 AM EDT) Hemoglobin A1c 6.1 4.3 - 6.1 % [facility] Comment: The Indian Diabetes Association (ADA) has stated that HbA1c [...] 2013:36;suppl 1:S11-S66. Estimated Average Glucose 128 mg/dL [facility] Comment: eAG equivalents for HbA1c [...] into estimated average glucose values. ??Diabetes Care 2008:31(8):6882-0858. Blood specimen (specimen) 04/15/2013 4:54 AM EDT 04/15/2013 5:33 AM EDT Narrative Resulting Agency Comment Spec In Lab Tavon Reed MD CHEMISTRY ORDERABLES [facility] * (ABNORMAL) Lipid panel (fasting) (04/15/2013 4:54 AM EDT) [facility] Cholesterol, Total 159 <=199 mg/dL [facility] Comment: Recommendations of the NCEP Adult Treatment Panel for the following risk cutoff thresholds for the [place] population: Desirable: <200 mg/dL Borderline High: 200-239 mg/dL High: > or = 240 mg/dL Triglyceride 138 <=149 mg/dL [facility] MILLENNIUM Comment: Reference Range: Normal triglycerides: ??<150 mg/dL Borderline high: ??150-199 mg/dL High: ??200-499 mg/dL Very high: ??>jq=744 mg/dL KIP 2001; 285(19):1879-7126 HDL Cholesterol 30(L) >=40 mg/dL [facility] Comment: Reference range: ??Low HDL: ?? < 40 mg/dL ??Normal: ?40-60 mg/dL ??Desirable: > 60 mg/dL KIP 2001; 285(19):9690-1046 LDL Cholesterol 101(H) <=99 mg/dL [facility] MILLENNIUM Comment: Reference range: ?? Optimal: ?<100 mg/dL ?? Near Optimal/Above Optimal: ?? 100-129 mg/dL ?? Borderline high: ?130-159 mg/dL ?? High: ? 160-189 mg/dL ?? Very high: ?>fx=381 mg/dL KIP 2001: 285(19):9237-7806 Cholesterol/HDL Ratio 5.3 ratio [facility] Comment: A Cholesterol to HDL ratio below 4:1 is desirable. ??Studies suggest that increased CAD risk occurs at ratios above 5 for females and above 6 for men. ? Indian Heart Association ??(http://www.americanheart.org) ? Sadie Int Med, 1994; 121:641 ? AM J Med, 1998; 105(1A):48S Blood specimen (specimen) 04/15/2013 4:54 AM EDT 04/15/2013 5:33 AM EDT Narrative Resulting Agency Comment Spec In Lab Tavon Reed MD CHEMISTRY ORDERABLES [facility] * (ABNORMAL) Hepatic Function Panel (04/15/2013 4:54 [...] Reed MD CHEMISTRY ORDERABLES Performing Organization Address [facility] Co de Phone Number CERNER MILLENNIUM * TSH (04/15/2013 4:54 AM EDT) Thyroid Stimulating Hormone 1.73 0.27 - 4.20 mcIU/mL [facility] MILLENNIUM Blood specimen (specimen) 04/15/2013 4:54 AM EDT 04/15/2013 5:33 AM EDT Narrative Resulting Agency Comment Spec In Lab Tavon Reed MD CHEMISTRY ORDERABLES Performing Organization Address City/[facility] Co de Phone Number CERKELSEY CORTEZENNIUM * Phosphorus (04/15/2013 4:54 AM EDT) Phosphorus 3.5 2.5 - 4.5 mg/dL [facility] MILLENNIUM Blood specimen (specimen) 04/15/2013 4:54 AM EDT 04/15/2013 5:33 AM EDT Narrative Resulting Agency Comment Spec In Lab Tavon Reed MD CHEMISTRY ORDERABLES Performing Organization Address City/[facility] Co de Phone Number CERKELSEY CORTEZENNIUM * Magnesium (04/15/2013 4:54 AM EDT) Magnesium 0.84 0.69 - 1.07 mmol/L [facility] Blood specimen (specimen) 04/15/2013 4:54 AM EDT 04/15/2013 5:33 AM EDT Narrative Resulting Agency Comment Spec In Lab Tavon Reed MD CHEMISTRY ORDERABLES Performing Organization Address [facility] Phone Number [facility] * Calcium (04/15/2013 4:54 AM EDT) Calcium 8.9 8.5 - 10.5 mg/dL [facility] Blood specimen (specimen) 04/15/2013 4:54 AM EDT 04/15/2013 5:33 AM EDT Narrative Resulting Agency Comment Spec In Lab Tavon Reed MD CHEMISTRY ORDERABLES Performing Organization Address [facility] Phone Number [facility] * (ABNORMAL) APTT (04/15/2013 4:53 AM EDT) Partial Thromboplastin Time 62(H) 25 - 35 sec [facility] Comment: Recommended therapeutic PTT range for full dose unfractionated heparin is 80-114 seconds. Blood specimen (specimen) 04/15/2013 4:53 AM EDT 04/15/2013 5:33 AM EDT Narrative Resulting Agency Comment Spec In Lab Tavon Reed MD HEMATOLOGY ORDERABLE S Performing Organization Address [facility] de Phone Number [facility] * Prothrombin Time (04/15/2013 4:53 AM EDT) Prothrombin Time 12.9 12.0 - 15.0 sec [facility] Comment: [facility] Transfusion Committee Guidelines: INR less than [...] MD HEMATOLOGY ORDERABLE S Performing Organization Address [facility] Co de Phone Number [facility] * Prothrombin Time (04/15/2013 12:45 AM EDT) Prothrombin Time 13.7 12.0 - 15.0 sec [facility] Comment: [facility] Transfusion Committee Guidelines: INR less than [...] MD HEMATOLOGY ORDERABLE S Performing Organization Address [facility] de Phone Number [facility] * APTT (04/14/2013 11:55 PM EDT) Partial Thromboplastin Time 28 25 - 35 sec [facility] Comment: Recommended therapeutic PTT range for full dose unfractionated heparin is 80-114 seconds. Blood specimen (specimen) 04/14/2013 11:55 PM EDT 04/15/2013 12:07 AM EDT Narrative Resulting Agency Comment Spec In Lab Tavon Reed MD HEMATOLOGY ORDERABLE S Performing Organization Address [facility] de Phone Number [facility] * EKG 12 Lead (04/14/2013 10:59 PM EDT) Ventricular rate 65 BPM MUSE SYSTEM Atrial Rate 65 BPM MUSE SYSTEM P-R Interval 134 ms MUSE SYSTEM QRS Duration 86 ms MUSE SYSTEM Q-T Interval 424 ms MUSE SYSTEM QTC Calculated (Bezet) 440 ms MUSE SYSTEM Calculated P [place] 26 degrees MUSE SYSTEM Calculated R [place] 17 degrees MUSE SYSTEM Calculated T [place] 36 degrees MUSE SYSTEM INTERPRETATION Normal sinus rhythm with sinus arrhythmia T wave abnormality, consider anterior ischemia Abnormal ECG When compared with ECG of 14-APR-2013 22:57, (unconfirmed) No significant change was found Confirmed by MD AGRAWAL MARK ([id number]) on 04/16/2013 11:34:39 AM MUSE SYSTEM 04/14/2013 10:5 9 PM EDT 04/16/2013 11:34 AM EDT Tavon Reed MD ECG ORDERABLES Performing Organization Address [facility] Phone Number MUSE SYSTEM * EKG 12 Lead (04/14/2013 10:57 PM EDT) Ventricular rate 56 BPM MUSE SYSTEM Atrial Rate 56 BPM MUSE SYSTEM P-R Interval 144 ms MUSE SYSTEM QRS Duration 84 ms MUSE SYSTEM Q-T Interval 430 ms MUSE SYSTEM QTC Calculated (Bezet) 414 ms MUSE SYSTEM Calculated P [place] 25 degrees MUSE SYSTEM Calculated R [place] 22 degrees MUSE SYSTEM Calculated T [place] 41 degrees MUSE SYSTEM INTERPRETATION Sinus bradycardia with Sinus arrhythmia T wave abnormality, consider anterolateral ischemia Abnormal ECG Confirmed by MD AGRAWAL MARK ([id number]) on 04/16/2013 11:34:11 AM MUSE SYSTEM 04/14/2013 10:5 7 PM EDT 04/16/2013 11:34 AM EDT Tavon Reed MD ECG ORDERABLES Performing Organization Address [facility] Phone Number MUSE SYSTEM * EKG 12 Lead (04/14/2013 10:56 PM EDT) Ventricular rate 53 BPM MUSE SYSTEM Atrial Rate 53 BPM MUSE SYSTEM P-R Interval 142 ms MUSE SYSTEM QRS Duration 74 ms MUSE SYSTEM Q-T Interval 420 ms MUSE SYSTEM QTC Calculated (Bezet) 394 ms MUSE SYSTEM Calculated P [place] 32 degrees MUSE SYSTEM Calculated R [place] 22 degrees MUSE SYSTEM Calculated T [place] 39 degrees MUSE SYSTEM INTERPRETATION Sinus bradycardia Sinus arrhythmia T wave abnormality, consider anterolateral ischemia Abnormal ECG Confirmed by MD AGRAWAL MARK ([id number]) on 04/16/2013 11:33:23 AM MUSE SYSTEM 04/14/2013 10:5 6 PM EDT 04/16/2013 11:33 AM EDT Freddy Mejias MD ECG ORDERABLES MUSE SYSTEM * POCT urine (04/14/2013 10:41 PM EDT) Pathologist [facility] POC Urine HCG Negative Negative - Negative POC Control Internal Controls Acceptable Tavon Reed MD POINT OF CARE TEST O RDERABLES * POCT urine dipstick (04/14/2013 10:41 PM EDT) [facility] POC Sp [place] 1.010 1.002 - 1.030 POC pH, UA [...] Differential, Automated (04/14/2013 9:10 PM EDT) Pathologist [facility] Neutrophil % 59.6 34.0 - 71.0 % [...] MD HEMATOLOGY ORDERABLE S Performing Organization Address [facility] de Phone Number [facility] * Gold Tube HOLD (04/14/2013 9:10 PM EDT) Gold Hold Sample in lab. [facility] CORTEZENNIUM Blood specimen (specimen) 04/14/2013 9:10 PM EDT 04/14/2013 9:15 PM EDT Tavon Reed MD CHEMISTRY ORDERABLES Performing Organization Address [facility] de Phone Number [facility] * Blue Tube HOLD (04/14/2013 9:10 PM EDT) Blue Hold Sample in lab. [facility] CORTEZENNIUM Blood specimen (specimen) 04/14/2013 9:10 PM EDT 04/14/2013 9:15 PM EDT Tavon Reed MD HEMATOLOGY ORDERABLE S Performing Organization Address [facility] Co de Phone Number [...] Lab Tavon Reed MD HEMATOLOGY ORDERABLE S [facility] DIEGO[facility] * Cardiac Enzymes (04/14/2013 9:10 PM EDT) [facility] Troponin-T <0.03 <=0.03 ng/mL CERNER MILLENNIUM Comment: 0.03 ng/mL: Represents the 99th percentile upper reference limit for normals. >0.03 ng/mL: Elevated cardiac troponin T level indicative of myocardial damage. Diagnosis of acute, evolving or recent NC requires a typical rise and gradual fall [...] consensus document of the Joint Society of Cardiology/Indian College of Cardiology Committee for the redefinition of myocardial infarction. Journal of the Indian College of Cardiology 2000; 36: 959-969] Creatine Kinase 49 0 - 160 unit/L [facility] JoGuruENNIUM Blood specimen (specimen) 04/14/2013 9:10 PM EDT 04/14/2013 9:14 PM EDT Narrative Resulting Agency Comment Spec In Lab Tavon Reed MD CHEMISTRY ORDERABLES [facility] * Glucose, random (04/14/2013 9:10 PM EDT) Glucose 114 60 - 199 mg/dL [facility] JoGuruENNIUM Comment:Diabetes: >=200 mg/d L plus symptoms Blood specimen (specimen) 04/14/2013 9:10 PM EDT 04/14/2013 9:14 PM EDT Narrative Resulting Agency Comment Spec In Lab Tavon Reed MD CHEMISTRY ORDERABLES Performing Organization Address City/[facility]/ZIP Co de Phone Number CERKELSEY JoGuruENNIUM * Creatinine (04/14/2013 9:10 PM EDT) Creatinine 0.78 0.70 - 1.20 mg/dL [facility] Comment: Please note that the pediatric reference intervals supplied above were not validated at [facility]. Results from pediatric patients should be interpreted in conjunction to the patient's age, height and muscle mass. Est Glomerular Filtration Rate >60 >=60 CERNER JoGuruENNIUM Comment: This estimated GFR (eGFR) value was [...] Reed MD CHEMISTRY ORDERABLES Performing Organization Address City/[facility] Co de Phone Number CERKELSEY CORTEZENNIUM * BUN (04/14/2013 9:10 PM EDT) Blood Urea Nitrogen 16 8 - 18 mg/dL [facility]ERNER MILLENNIUM Blood specimen (specimen) 04/14/2013 9:10 PM EDT 04/14/2013 9:14 PM EDT Narrative Resulting Agency Comment Spec In Lab Tavon Reed MD CHEMISTRY ORDERABLES Performing Organization Address [facility] Co de Phone Number CERNER MILLENNIUM [...] Reed MD CHEMISTRY ORDERABLES Performing Organization Address City/[facility]/ZIP Co de Phone Number CERKELSEY CORTEZENNIUM * EKG 12 Lead (04/14/2013 8:57 PM EDT) Ventricular rate 67 BPM MUSE SYSTEM Atrial Rate 67 BPM MUSE SYSTEM P-R Interval 140 ms MUSE SYSTEM QRS Duration 72 ms MUSE SYSTEM Q-T Interval 372 ms MUSE SYSTEM QTC Calculated (Bezet) 393 ms MUSE SYSTEM Calculated P [place] 44 degrees MUSE SYSTEM Calculated R [place] 36 degrees MUSE SYSTEM Calculated T [place] 48 degrees MUSE SYSTEM INTERPRETATION Sinus rhythm [...] in sodium chloride 0.9% 50 mL infusion (MEDICAL RECORDS DIRECTOR) CONTINUOUS PRN, Starting on Tue04/16/13 at 1054, [...] than 145 sec X 2 - call assistant executive housekeeper See Bolus dosing guidance for aPTT [...] over 24 Hours, DAILY, First dose on [place] 04/15/13 at 0900, Until Discontinued, Routine Given [...] Sublingual, EVERY 5 MIN PRN, Starting on [place] 04/15/13 at 0126, Until 04/17/13 at 1743, [...] CONTINUOUS, Starting on 04/14/13 at 2330, Until [place] 04/15/13 at 1227, Maximum dose: 200 mcg/min [...] 2200 (Given by Other - Provider: Tegan uAgust, FABIANA) 0600 (Given - Provider: Tegan August [...] than 145 sec X 2 - call assistant executive housekeeper See Bolus dosing guidance for aPTT [...] in sodium chloride 0.9% 50 mL infusion (MEDICAL RECORDS DIRECTOR) (CANCELED) CONTINUOUS PRN, Starting on Tue04/16/13 at [...] Intra-Operative (Intra-Procedure), Routine 1051 (Given - Provider: oMnty Lopez) fentaNYL 50mcg/mL injection (CANCELED) ONCE PRN, [...] Patch documented in this encounter Care Teams Toll Patrolman Relationship Specialty Start Date End Date Adriana Perla APRN [address] [place] [address] PCP - General 06/16/10 06/27/18 documented as of this encounter
--- OUTSIDE RECORDS SUMMARY | 2024-08-15 13:38 | XMS_ITS | Encounter Summary ---
Author Organization [facility] Address [facility] [place] [address] Care Team Providers Care Auto Hiker Name Role Phone Aman Lawrence APRN Primary Care Provider [phone] Reason for Visit * Reason Comments Coronary Artery Disease Encounter Details Date Type Department Care Team (Late st Contact Info) Description 05/10/2013 8:10 AM EDT Office Visit Cardiology at [address] [phone] Freddy Mejias MD [facility] [place] [address] CAD (coronary artery disease) (Primary Dx) Discharge [...] performed by DEE WRIGHT at [facility] ENDOSCOPY ??? Abdomen surgery ??? Hysterectomy No [...] Social history: , no children. Lives in [place]. 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 Smoking: Active smoker, 2ppd Alcohol: [...] ??? VITAMIN D2 50,000 UNIT CAPSULE Oral [id number], PO, TWICE a week ??? QUETIAPINE ER [...] (Bezet) 364 ms MUSE SYSTEM Calculated P [place] 34 degrees MUSE SYSTEM Calculated R [place] 53 degrees MUSE SYSTEM Calculated T [place] 50 degrees MUSE SYSTEM INTERPRETATION Sinus bradycardia [...] Coronary atherosclerosis of unspecified type of vessel, [place] or graft documented in this encounter Care Teams Auto Hiker Relationship Specialty Start Date End Date Aman Lawrence APRN [address] [place] [address] PCP - General 06/16/10 06/27/18 documented as of this encounter
--- OUTSIDE RECORDS SUMMARY | 2024-08-15 13:38 | XMS_ITS | Encounter Summary ---
[place] [address] Care Team Providers Care It Support Technician Name Role Phone Yisel Marroquin MD Primary Care Provider Unavail able Encounter Details Date Type Department Care Team (Late st Contact Info) Description 12/19/2013 Orders Only Radiology and Cardiology Results [address] [place] [address] Apd Conversion, Results Provider, Social [...] Lab) [facility] CONVERSION LDL Cholesterol 45(Associate Professor Of Chemistry al Lab) [facility] CONVERSION HDL Cholesterol 40(Associate Professor Of Chemistry al Lab) 40 - 60 [facility] CONVERSION Triglyceride 109(Exter nal Lab) 30 - 150 [facility] CONVERSION Cholesterol, Total 107(Exter nal Lab) 0 - 200 [facility] CONVERSION 12/19/2013 Results Provider Apd Conversion MD JASON ESTRELLA ORDERABLES [facility] CONVERSION documented in this encounter Visit Diagnoses Not on filedocumented in this encounter Care Teams It Support Technician Relationship Specialty Start Date End Date Yisel Marroquin MD PCP - General 11/13/18 03/05/19 documented as of this encounter
--- OUTSIDE RECORDS SUMMARY | 2024-08-15 13:38 | XMS_ITS | Encounter Summary ---
Author Organization [facility] Address [facility] [place] [address] Care Team Providers Care Sandblast Or Shotblast Equipment Tender Name Role Phone Yisel Marroquin MD Primary Care Provider Unavail able Encounter Details Date Type Department Care Team (Late st Contact Info) Description 04/16/2014 Abstract [place] Conversion Results [address] [place] [address] Apd Conversion, Flowsheet Provider, Social History Tobacco [...] filedocumented in this encounter Care Teams Sandblast Or Shotblast Equipment Tender Relationship Specialty Start Date End Date Yisel Marroquin MD PCP - General 11/13/18 03/05/19 documented as of this encounter
--- OUTSIDE RECORDS SUMMARY | 2024-08-15 13:38 | XMS_ITS | Encounter Summary ---
Author Organization [facility] Address [facility] [address] Care Team Providers Care Transport Aircrewman Name Role Phone Yisel Marroquin MD Primary Care Provider Unavail able Encounter Details Date Type Department Care Team (Late st Contact Info) Description 06/05/2014 Abstract [place] Conversion Results [address] [place] [address] Apd Conversion, Flowsheet Provider, Social History Tobacco [...] filedocumented in this encounter Care Teams Transport Aircrewman Relationship Specialty Start Date End Date Yisel Marroquin MD PCP - General 11/13/18 03/05/19 documented as of this encounter
--- OUTSIDE RECORDS SUMMARY | 2024-08-15 13:38 | XMS_ITS | Encounter Summary ---
Author Organization [facility] Address [facility] [place] [address] Care Team Providers Care Manugrapher Name Role Phone Aman Lawrence APRN Primary Care Provider [phone] Reason for Visit * Reason Onset Date Comments Medication Problem 04/18/2013 Encounter Details Date Type Department Care Team (Late st Contact Info) Description 04/18/2013 Telephone Cardiology at [address] [phone] Freddy Mejias MD [facility] [place] [address] Medication Problem Social History Tobacco Use Types [...] take it. She can be reached at [phone]. Thank you. documented in this encounter Plan of Treatment Not on file documented as of this encounter Visit Diagnoses Not on filedocumented in this encounter Care Teams Manugrapher Relationship Specialty Start Date End Date Aman Lawrence APRN [address] [place] [address] PCP - General 06/16/10 06/27/18 documented as of this encounter
--- OUTSIDE RECORDS SUMMARY | 2024-08-15 13:38 | XMS_ITS | Encounter Summary ---
Author Organization [facility] Address [facility] [place] [address] Care Team Providers Care Bilingual Branch Manager Name Role Phone Aman Lawrence APRN Primary Care Provider [phone] Reason for Visit * Reason Comments Coronary Artery Disease Encounter Details Date Type Department Care Team (Late st Contact Info) Description 01/07/2014 7:40 AM EDT Follow-Up Cardiology at [address] [address] rFeddy Mejias MD [facility] [place] [address] CAD (coronary artery disease) (Primary Dx); Smoking [...] ENDOSCOPY performed by DEE WRIGHT at [facility] ENDOSCOPY ??? Abdomen surgery ??? Hysterectomy [...] Social history: , no children. Lives in [place]. 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 ytoiefddaxia-rkmb-hsxlwweq (COMPLETE MULTIVITAMIN) Tab tablet 1 Tablet(s), PO, Once daily ??? calcium citrate-vitamin D (CITRACAL+D) 315-200 mg-unit per tablet 2 Tablet(s), PO, Twice daily ??? ergocalciferol (VITAMIN D) 50,000 unit capsule [id number], PO, TWICE a week Allergies Allergen Reactions [...] Coronary atherosclerosis of unspecified type of vessel, [place] or graft Smoking Tobacco use disorder documented in this encounter Care Teams Bilingual Branch Manager Relationship Specialty Start Date End Date Aman Lawrence APRN [address] [place] [address] PCP - General 06/16/10 06/27/18 documented as of this encounter
--- OUTSIDE RECORDS SUMMARY | 2024-08-15 13:38 | XMS_ITS | Encounter Summary ---
[place] [address] Care Team Providers Care Informatics Spec Name Role Phone Amna Lawrence APRN Primary Care Provider [phone] Encounter Details Date Type Department Care Team (Latest Contact Info) Description 05/10/2013 8:57 AM EDT - 05/10/2013 11:59 PM EDT Hospital Encounter Non[place] [phone] CARDIAC REHAB, PROG CRP Cardiac Rehab Prog, [...] vitamins (B COMPLEX-VITAMIN B12) tablet 09/23/2010 11/19/2016 hiptwpbfgixe-xbjp-ibvtt als (COMPLETE MULTIVITAMIN) Tab tablet 1 Tablet(s), PO, Once daily 09/23/2010 11/19/2016 calcium citrate-vitamin D (CITRACAL+D) 315-200 mg-unit per tablet 2 Tablet(s), PO, Twice daily 09/23/2010 11/19/2016 ergocalciferol (VITAMIN D) 50,000 unit capsule [id number], PO, TWICE a week 09/23/2010 11/19/2016 documented [...] is under the direction of the medical technologist hematology,Dr Yvon Gomez. The program includes telemetry monitored exercise sessions with progressive increases in exercise level as appropriate. Educational classes are also provided regarding medications, low fat/chol diet instruction, weight loss, exercise guidelines, stress management and risk factor modification. The patient's progress will be reviewed with the medical technologist hematology every 2-3 weeks during the courseof the program and with the PCP and/or ORDER TO DELIVERY SUPERVISOR intermittently. For details of individual class sessions, [...] 239.4 Lbs. I Body Fat %: 44.8 Weir Body Fat: 22-31 % BMI: 40.9 Waist [...] Coronary atherosclerosis of unspecified type of vessel, [place] or graft documented in this encounter Care Teams Informatics Spec Relationship Specialty Start Date End Date Aman Lawrence APRN [address] [place] [id number] PCP - General 06/16/10 06/27/18 documented as of this encounter
--- OUTSIDE RECORDS SUMMARY | 2024-08-15 13:38 | XMS_ITS | Encounter Summary ---
[place] [address] Care Team Providers Care Clinical Audiologist Name Role Phone Yisel Marroquin MD Primary Care Provider Unavail able Encounter Details Date Type Department Care Team (Late st Contact Info) Description 12/19/2013 Orders Only Radiology and Cardiology Results [address] [place] [address] Apd Conversion, Results Provider, Social [...] filedocumented in this encounter Care Teams Clinical Audiologist Relationship Specialty Start Date End Date Yisel Marroquin MD PCP - General 11/13/18 03/05/19 documented as of this encounter
--- OUTSIDE RECORDS SUMMARY | 2024-08-15 13:38 | XMS_ITS | Encounter Summary ---
[place] [address] Care Team Providers Care Bakery Worker Name Role Phone Aman Lawrence APRN Primary Care Provider +1 -[phone] Encounter Details Date Type Department Care Team (Late st Contact Info) Description 06/20/2013 Notes [place] [address] Monique Lopez Social History Tobacco Use Types [...] then she will be moved to [facility]. documented in this encounter Plan of Treatment Not on file documented as of this encounter Visit Diagnoses Not on filedocumented in this encounter Care Teams Bakery Worker Relationship Specialty Start Date End Date Aman Lawrence APRN [address] [place] [address] PCP - General 06/16/10 06/27/18 documented as of this encounter
--- OUTSIDE RECORDS SUMMARY | 2024-08-15 13:38 | XMS_ITS | Encounter Summary ---
[place] [address] Care Team Providers Care Tester Printed Circuit Boards Name Role Phone Aman Lawrence APRN Primary Care Provider +1 [phone] Reason for Visit * Reason Comments Follow-up Bariatric Surgery Zachary suárez Encounter Details Date Type Department Care Team (Late st Contact Info) Description 07/04/2013 2:30 PM EST Follow[place] [address] Sidra Del Toro APRN S/P gastric bypass [...] Encarnacion, RD - 07/03/2013 4:36 PM EST [facility] Admin coordinator Rhonda: [phone] Dietitian: [phone] Surgeons/ nurse practitioner: [phone] Nurse line: [phone] Your excess body weight lost: 37.5% Testing: [...] prefer, sign up for free account on www.[employer] to log your food- it will count [...] by eating a bigger serving of the british yogurt. Other breakfast ideas: low fat/fat free [...] of every month from 1-2 PM at [facility] Back on Track group visits are held monthly Internet resources: www.[facility] www.EUDOWEB www.[employer] Www.[employer] (cat Alonzo) https://www.[employer] (MXD3D).com/[facility]ariatric[facility] Books & Magazines: - Recipes [...] of contrast was clearly seen within the chilkat fundus indicating a leak. The site of the leak was not identified, but it is assumed to be relatively high. Contrast flowed freely through the anastomosis and no retrograde flow was seen in the afferent loop.There is mild dilatation in the region of the Genesis-en-Y anastomosis. never Colonoscopy ? 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 [...] gain. She was advised that her terminal manager weight loss is excellent. She isstable from a bariatric surgery perspective. A staple line breakdown has not been confirmed, since she did not have the upper endoscopy that was ordered at her last visit in 2010. ?? Her case will be discussed at the next team meeting ?? Advised to discuss the timing of her next bone density scan with Primary Firer Watertender ?? Next BSP visit: 1 year ?? [...] If labwork is done by the primary rn progressive care unit: please send a copy to the Bariatric Surgery Program, General Surgery Clinic, [facility], attention Sidra Del Toro APRN. Plastic Surgery Clinic evaluation for skin redundancy: done no sooner than 18 months post-operatively when weight loss has been stable for a few months. In general, patients with a BMI >30-35 are not considered candidates due to increased risk of complications unless there are compelling health concern Questions regarding [facility] Bariatric Surgery Program patients: please call Jorge Del Toro APRN at [phone] or [phone] beeper [phone]. * Meena Encarnacion, RD - 07/03/2013 4:30 [...] cup cooked old fashioned oatmeal, 1/2 cup british yogurt w fruit, 1/2 cup skim milk, 1/2 toast w ICBINB AM Snack none Lunch 12pm: 1/2 turkey sandwich (1 slice turkey), salad, 1/2 cup veggie soup, sugar free pudding PM Snack 2pm: fruit/whole wheat crackers w hummus or fruit/cucumber or tomato Dinner 5pm: chicken (3oz breast), 2 cups veggies, 1/2 cup peaches, salad w low fat maori HS Snack 7pm: 1/2 cup sf pudding [...] rehab, but finished, so walking inside at [facility] or at [facility] [employer] where she works daily most days for [...] track food using online program, such as [employer] as patient reports she is using a [...] Coronary atherosclerosis of unspecified type of vessel, chilkat or graft Esophageal reflux documented in this encounter Care Teams Tester Printed Circuit Boards Relationship Specialty Start Date End Date Aman Lawrence APRN [address] [place] [address] PCP - General 06/16/10 06/27/18 documented as of this encounter
--- OUTSIDE RECORDS SUMMARY | 2024-08-15 13:38 | XMS_ITS | Encounter Summary ---
[place] [address] Care Team Providers Care Keyboarding Clerk Name Role Phone Aman Lawrence APRN Primary Care Provider +1 [phone] Encounter Details Date Type Department Care Team (Late st Contact Info) Description 03/11/2014 2:50 PM EDT - 03/11/2014 11:59 PM EDT Hospital En[place] [id number] Kidney stone Social History Tobacco Use Types [...] vitamins (B COMPLEX-VITAMIN B12) tablet 09/23/2010 11/19/2016 pzudtbnbbxls-dnqy-odatm als (COMPLETE MULTIVITAMIN) Tab tablet 1 Tablet(s), PO, Once daily 09/23/2010 11/19/2016 calcium citrate-vitamin D (CITRACAL+D) 315-200 mg-unit per tablet 2 Tablet(s), PO, Twice daily 09/23/2010 11/19/2016 ergocalciferol (VITAMIN D) 50,000 unit capsule [id number], PO, TWICE a week 09/23/2010 11/19/2016 documented [...] ? pm) Patient Info ID #: ? [id number] ?: ??[birth year] (53 yrs) Name: ? YVONNE RICO ?Visit Date: 03/11/2014 03:57 pm Performed By Performed By: ?Elsa Guerra RDMS Associate: ? Wilfrido Stuart DO Attending: ? Christiano SLADE, Elba Carbajal Referred By: ? HUMBERTO BARAJAS MD Service(s) Provided ??URETRO - Retroperitoneal Complete - [id number] ? [id number] Indications ??kidney stone Right Kidney Size (cm) [...] 03/11/2014 04:10 pm) Patient Info ID #: [id number] : 60 (53 yrs) Name: YVONNE RICO Visit Date: 03/11/2014 03:57 pm Performed By Performed By: Elsa Guerra RDMS Associate: Wilfrido Stuart DO Attending: Elba Alvarado MD Referred By: HUMBERTO BARAJAS MD Service(s) Provided URETRO - Retroperitoneal Complete - [id number] Indications kidney stone Right Kidney Size (cm) [...] Film and interpretation reviewed by the attending Hmuberto Barajas MD IMG US GEN ORDERABLE S documented in this encounter Visit Diagnoses Diagnosis Kidney stone Calculus of kidney documented in this encounter Care Teams Keyboarding Clerk Relationship Specialty Start Date End Date Aman Lawrence APRN [address] [place] [address] PCP - General 06/16/10 06/27/18 documented as of this encounter
--- OUTSIDE RECORDS SUMMARY | 2024-08-15 13:38 | XMS_ITS | Encounter Summary ---
Author Organization [facility] [place] [address] Care Team Providers Care Criminal Psychologist Name Role Phone Hoang Castellanos APRN Primary Care Provider Reason for Visit * Reason Comments Medication Refill Encounter Details Date Type Department Care Team (Late st Contact Info) Description 02/04/2014 Refill Intermediate [place] [phone] Tamar Kay MD [facility] [place] [address] Social History Tobacco Use Types Packs/Day Years [...] documented as of this encounter Care Teams Criminal Psychologist Relationship Specialty Start Date End Date Hoang Castelalnos, SAM [address] [place] [address] PCP - General Family Medicine 03/12/20 documented as of this encounter
--- OUTSIDE RECORDS SUMMARY | 2024-08-15 13:38 | XMS_ITS | Encounter Summary ---
Author Organization [facility] Address [address] [facility] [place] [address] Care Team Providers Care Superintendent Tests Name Role Phone Yisel Marroquin MD Primary Care Provider Unavail able Encounter Details Date Type Department Care Team (Late st Contact Info) Description 02/10/2014 Interpretation Only Radiology [address] [facility] [place] [address] Unknown None Social History Tobacco Use Types [...] 5:07 PM EDT APD Historical Result Principal Sales Estimator: ??JENNY ?KAYLIE SUPINE ABDOMEN: Supine views of [...] clearly demonstrated by Radiography. Jenny Landa MD [facility]/mn [id number] CC: Procedure Note Unknown - 01/22/2019 APD Historical Result Principal Sales Estimator: JENNY LANDA SUPINE ABDOMEN: Supine views of [...] not clearlydemonstrated by Radiography. Jenny Landa MD [facility]/vt [id number] CC: Unknown IMG DX ORDERABLES documented in this encounter Visit Diagnoses Not on filedocumented in this encounter Care Teams Superintendent Tests Relationship Specialty Start Date End Date Yisel Marroquin MD PCP - General 11/13/18 03/05/19 documented as of this encounter
--- OUTSIDE RECORDS SUMMARY | 2024-08-15 13:38 | XMS_ITS | Encounter Summary ---
[place] [address] Care Team Providers Care Heading Up Machine Operator Name Role Phone Aamn Lawrence APRN Primary Care Provider [phone] [phone] Reason for Visit * Reason Onset Date Comments Other 05/31/2013 tobacco cessatio n referral rec'd from Jorge Lopez. T/C to pt re: tobacco cessation resources. See documentation Encounter Details Date Type Department Care Team (Late st Contact Info) Description 05/31/2013 [place] [address] Indu Torres RN Other (tobacco cessation referral [...] been smoking 2 ppd. I come [facility] and would like to come to the [facility] Tobacco Treatment clinic. O/A: Positive recognition was [...] in her local area: [facility] is offering FreshStart Classes at the [facility] in [place], [place] [phone] and there is a one-on-one tobacco counseling program & free NRT at the [facility] on Tuesday's 9-3 pm. The [place] [facility] ([phone]-[phone]-NOW offers free telephonic tobacco counseling and free NRT to those whose prescription plans do not cover for the OTC medication. Discussed Reviewed the contents in the [facility] Tobacco cessation packet & D Tobacco treatment free clinic which is held on Tuesday and 9:30-11:30 in the [facility] on 4-H. Plan: Mrs. Rico plans to contact the [facility] for smoking cessation classes and one-on-one to get ready for her Quit date for Jun 29, 2013. She has all contact information and states she will call [facility] Tobacco treatment Program if she opts to schedule an appointment for 2012. Indu Torres RN, MS, C-TTS Beeper 0192 documented in this encounter Plan of Treatment Not on file documented as of this encounter Visit Diagnoses Not on filedocumented in this encounter Care Teams Heading Up Machine Operator Relationship Specialty Start Date End Date Aman Lawrence APRN [address] [place] [address] PCP - General 06/16/10 06/27/18 documented as of this encounter
--- OUTSIDE RECORDS SUMMARY | 2024-08-15 13:38 | XMS_ITS | Encounter Summary ---
Author Organization [facility] [place] [address] Care Team Providers Care Treasury Specialist Name Role Phone Yisel Marroquin MD Primary Care Provider Unavail able Encounter Details Date Type Department Care Team (Late st Contact Info) Description 02/12/2014 Abstract [place] Conversion Results [address] [place] [address] Apd Conversion, Flowsheet Provider, Social History Tobacco [...] on filedocumented in this encounter Care Teams Treasury Specialist Relationship Specialty Start Date End Date Yisel Marroquin MD PCP - General 11/13/18 03/05/19 documented as of this encounter
--- OUTSIDE RECORDS SUMMARY | 2024-08-15 13:38 | XMS_ITS | Encounter Summary ---
Author Organization [facility] Address [address] [facility] [address] Care Team Providers Care Library Circulation Assistant Name Role Phone Yisel Marroquin MD Primary Care Provider Unavail able Encounter Details Date Type Department Care Team (Late st Contact Info) Description 02/10/2014 Interpretation Only Radiology [address] [facility] [place] [address] Unknown None Social History Tobacco Use Types [...] 5:07 PM EDT APD Historical Result Principal Alum Operator: ??JENNY ??SYEDA CT ABDOMEN AND PELVIS [...] on February 10, 2014. Jenny Landa MD [facility]/tn [id number] CC: Procedure Note Unknown - 01/22/2019 APD Historical Result Principal Alum Operator: JENNY LANDA CT ABDOMEN AND PELVIS [...] on February 10, 2014. Jenny Landa MD [facility]/tn [id number] CC: Unknown IMG CT ORDERABLES documented in this encounter Visit Diagnoses Not on filedocumented in this encounter Care Teams Library Circulation Assistant Relationship Specialty Start Date End Date Yisel Marroquin MD PCP - General 11/13/18 03/05/19 documented as of this encounter
--- OUTSIDE RECORDS SUMMARY | 2024-08-15 13:38 | XMS_ITS | Encounter Summary ---
Author Organization [facility] Address [facility] [place] [address] Care Team Providers Care Metal Fabricating Inspector Name Role Phone Yisel Marroquin MD Primary Care Provider Unavail able Encounter Details Date Type Department Care Team (Late st Contact Info) Description 01/14/2014 Abstract [place] Conversion Results [address] [place] [address] Apd Conversion, Flowsheet Provider, Social History Tobacco [...] filedocumented in this encounter Care Teams Metal Fabricating Inspector Relationship Specialty Start Date End Date Yisel Marroquin MD PCP - General 11/13/18 03/05/19 documented as of this encounter
--- OUTSIDE RECORDS SUMMARY | 2024-08-15 13:38 | XMS_ITS | Encounter Summary ---
[place] [address] Care Team Providers Care Pediatric Licensed Practical Nurse Name Role Phone Aman Lawrence APRN Primary Care Provider +1 -[phone] Encounter Details Date Type Department Care Team (Late st Contact Info) Description 02/10/2014 Orders [place] [address] Humberto Cerda MD Social History Tobacco Use [...] is a Non-reportable exam Humberto Cerda MD [facility] FILM LIBRARY ORD ERABLES documented in this encounter Visit Diagnoses Not on filedocumented in this encounter Care Teams Pediatric Licensed Practical Nurse Relationship Specialty Start Date End Date Aman Lawrence APRN [address] [place] [address] PCP - General 06/16/10 06/27/18 documented as of this encounter
--- OUTSIDE RECORDS SUMMARY | 2024-08-15 13:38 | XMS_ITS | Encounter Summary ---
[place] [address] Care Team Providers Care Film Processor Name Role Phone Aman Lawrence APRN Primary Care Provider [phone] [phone] Reason for Visit * Reason Onset Date Comments Other 06/01/2013 request alternat kayden medication Encounter Details Date Type Department Care Team (Late st Contact Info) Description 06/01/2013 Telephone [place] [address] Sidra Diaz RN Other (request alternative medication) [...] of leakage. Will discuss with Sidra Vallejo RESIDENT MEDICAL OFFICER documented in this encounter Plan of Treatment Not on file documented as of this encounter Visit Diagnoses Not on filedocumented in this encounter Care Teams Film Processor Relationship Specialty Start Date End Date Aman Lawrence APRN [address] [place] [address] PCP - General 06/16/10 06/27/18 documented as of this encounter
--- OUTSIDE RECORDS SUMMARY | 2024-08-15 13:38 | XMS_ITS | Encounter Summary ---
[place] [address] Care Team Providers Care Licensed Aircraft Maintenance Engineer Name Role Phone Aman Lawrence APRN Primary Care Provider +1 -[phone] Encounter Details Date Type Department Care Team (Late st Contact Info) Description 05/14/2013 Notes [place] [address] [facility] [place] [address] Social History Tobacco Use Types Packs/Day Years [...] complex vitamins (B COMPLEX-VITAMIN B12) tablet ??? rttunrnzybwb-frvw-nirrtggq (COMPLETE MULTIVITAMIN) Tab tablet 1 Tablet(s), PO, Once daily ??? calcium citrate-vitamin D (CITRACAL+D) 315-200 mg-unit per tablet 2 Tablet(s), PO, Twice daily ??? 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
--- OUTSIDE RECORDS SUMMARY | 2024-08-15 13:38 | XMS_ITS | Encounter Summary ---
Author Organization [facility] Address [facility] [place] [address] Care Team Providers Care Insulator Cutter And Former Name Role Phone Yisel Marroquin MD Primary Care Provider Unavail able Encounter Details Date Type Department Care Team (Late st Contact Info) Description 05/16/2014 Abstract [place] Conversion Results [address] [place] [address] Apd Conversion, Flowsheet Provider, Social History Tobacco [...] on filedocumented in this encounter Care Teams Insulator Cutter And Former Relationship Specialty Start Date End Date Yisel Marroquin MD PCP - General 11/13/18 03/05/19 documented as of this encounter
--- OUTSIDE RECORDS SUMMARY | 2024-08-15 13:38 | XMS_ITS | Encounter Summary ---
[place] [address] Care Team Providers Care World Travel Counselor Name Role Phone Aman Lawrence APRN Primary Care Provider +1 -[phone] Encounter Details Date Type Department Care Team (Late st Contact Info) Description 03/11/2014 4:00 PM EDT [place] [phone] CLINIC, Humberto Bah MD Kidney stone (Primary [...] for f/u. She was seen in the [facility] ED on 02/11/14 with left flank pain. [...] DEE WRIGHT at [facility] ENDOSCOPY ??? Abdomen surgery ??? Hysterectomy Gastric [...] complex vitamins (B COMPLEX-VITAMIN B12) tablet ??? cqitcisqaqxn-lres-xcjrgrsl (COMPLETE MULTIVITAMIN) Tab tablet 1 Tablet(s), PO, Once daily ??? calcium citrate-vitamin D (CITRACAL+D) 315-200 mg-unit per tablet 2 Tablet(s), PO, Twice daily ??? ergocalciferol (VITAMIN D) 50,000 unit capsule [id number], PO, TWICE a week Allergies Allergen Reactions [...] kidney documented in this encounter Care Teams World Travel Counselor Relationship Specialty Start Date End Date Aman Lawrence APRN [address] [place] [address] PCP - General 06/16/10 06/27/18 documented as of this encounter
--- OUTSIDE RECORDS SUMMARY | 2024-08-15 13:38 | XMS_ITS | Encounter Summary ---
[place] [address] Care Team Providers Care Bonderizer Operator Name Role Phone Aman Lawrence APRN Primary Care Provider +1 [phone] Encounter Details Date Type Department Care Team (Late st Contact Info) Description 02/10/2014 [place] [address] Humberto Cerda MD Social History Tobacco Use [...] is a Non-reportable exam Humberto Cerda MD [facility] FILM LIBRARY ORD ERABLES documented in this encounter Visit Diagnoses Not on filedocumented in this encounter Care Teams Bonderizer Operator Relationship Specialty Start Date End Date Aman Lawrence APRN [address] [place] [address] PCP - General 06/16/10 06/27/18 documented as of this encounter
--- OUTSIDE RECORDS SUMMARY | 2024-08-15 13:38 | XMS_ITS | Encounter Summary ---
Author Organization [facility] [place] [address] Care Team Providers Care Advertising Vice President Name Role Phone Aman Lawrence APRN Primary Care Provider +1 -[phone] Reason for Visit * Reason Comments Medication Refill Encounter Details Date Type Department Care Team (Late st Contact Info) Description 06/06/2013 Refill Intermediate [place] [address] Tamar Kay MD [facility] [place] [address] Social History Tobacco Use Types Packs/Day Years [...] filedocumented in this encounter Care Teams Advertising Vice President Relationship Specialty Start Date End Date Aman Lawrence [place] [address] PCP - General 06/16/10 06/27/18 documented as of this encounter
--- OUTSIDE RECORDS SUMMARY | 2024-08-15 13:39 | XMS_ITS | Encounter Summary ---
Author Organization [facility] [place] [address] Care Team Providers Care Manager Agency Name Role Phone Aman Lawrence APRN Primary Care Provider +1 -[phone] Reason for Visit * Reason Onset Date Comments Other 04/21/2011 MAP reorder Encounter Details Date Type Department Care Team (Late st Contact Info) Description 04/21/2011 [place] [address] Tegan Austin Other (MAP reorder) Social History [...] to request a Lidoderm reorder. I called [facility] and placed an order for Lidoderm Patches (5% #90). Order number [id number] [facility] andshould arrive within ten business days. I returned Jeannie's call to let her know. documented in this encounter Plan of Treatment Not on file documented as of this encounter Visit Diagnoses Not on filedocumented in this encounter Care Teams Manager Agency Relationship Specialty Start Date End Date Aman Lawrence APRN [address] [place] [address] PCP - General 06/16/10 06/27/18 documented as of this encounter
--- OUTSIDE RECORDS SUMMARY | 2024-08-15 13:39 | XMS_ITS | Encounter Summary ---
[facility] Organization [facility] Address [facility] [place] [address] Care Team Providers Care Radioactivity Technician Name Role Phone Aman Lawrence APRN Primary Care Provider +1 [phone] Reason for Visit * Reason Comments Chest Pain Encounter Details Date Type Department Care Team (Late st Contact Info) Description 04/09/2013 9:29 AM EDT - 04/09/2013 2:55 PM [place]T [place] [id number] Tavon Reed MD [facility] [place] [address] Chest pain; Chest pain radiating to arm [...] vitamins (B COMPLEX-VITAMIN B12) tablet 09/23/2010 11/19/2016 cpwffyidxpbm-arwv-txfm rals (COMPLETE MULTIVITAMIN) Tab tablet 1 Tablet(s), PO, Once daily 09/23/2010 11/19/2016 calcium citrate-vitamin D (CITRACAL+D) 315-200 mg-unit per tablet 2 Tablet(s), PO, Twice daily 09/23/2010 11/19/2016 ergocalciferol (VITAMIN D) 50,000 unit capsule [id number], PO, TWICE a week 09/23/2010 11/19/2016 documented [...] no other associating symptoms, Pt placed on youth nutritional monitor, EKG done, iv est, labs drawn, [...] 0.05 x10(3)/mcL RAPID QUALITATIVE DRUG SCREEN, URINE ([facility]) Component Value Range MARILU Marijuana Metabolites Scr [...] APOLINAR RUSSELL L ?(Age): 1960(52) Med Rec#: ?[id number] ? Sex: ?F ? Site Loc: ?[facility] ? Ht / Wt: ??163(cm)/108(kg) Pt. Loc: ? ED ? BSA: ?2.21 Study Date: ?04/09/2013 ? Pt. Type: Outpatient Tape: ? Referring: Sergo Ortiz ([id number]) Supervisor Paste Plant: Remy Campos Interpreting Fellow: Adal Esqueda ([id number]) Diagnosis:CPT Code(s): ??Spectral Doppler (20168), ??Color Doppler (21951), ??Definity (34471FK), ??Echo Full (40436), Indication(s): ??Chest Pain Rhythm: Bradycardia HR ?BP [...] ? Mid-Inferior ?Normal ? Mid-Inferoseptal ?Normal ? [place]-Septal ? Normal ? [place]-Anterior ? Normal ? [place]-Lateral ?Normal ? [place]-Inferior ? Normal ? [place]-Tip ?Normal ? Chambers ?Value ?Units (Range) ? [...] 04/09/2013 15:20:08 Images reviewed and interpretation verified [facility] Cardiac Ultrasound Laboratory Procedure Note Anthony Leary MD - 04/09/2013 Procedure: Transthoracic Echocardiogram Patient: APOLINAR Lawson (Age): 1960(52) Med Rec#: [id number] Sex: F Site Loc: [facility] Ht / Wt: 163(cm)/108(kg) Pt. Loc: ED BSA: 2.21 Study Date: 04/09/2013 Pt. Type: Outpatient Tape: Referring: Sergo Ortiz ([id number]) Supervisor Paste Plant: Remy Campos Interpreting Fellow: Adal Esqueda ([id number]) Diagnosis:CPT Code(s): Spectral Doppler (35104), Color Doppler (39693), Definity (92308GJ), Echo Full (65026), Indication(s): Chest Pain Rhythm: Bradycardia HR BP [...] Normal Mid-Posterolateral Normal Mid-Inferior Normal Mid-Inferoseptal Normal [place]-Septal Normal [place]-Anterior Normal [place]-Lateral Normal [place]-Inferior Normal [place]-Tip Normal Chambers Value Units (Range) [place] area [...] 04/09/2013 15:20:08 Images reviewed and interpretation verified [facility] Cardiac Ultrasound Laboratory Sergo Ortiz MD ECHO ORDERABLES * EKG 12 Lead (04/09/2013 2:24 PM EDT) Ventricular rate 52 BPM MUSE SYSTEM Atrial Rate 52 BPM MUSE SYSTEM P-R Interval 148 ms MUSE SYSTEM QRS Duration 84 ms MUSE SYSTEM Q-T Interval 418 ms MUSE SYSTEM QTC Calculated (Bezet) 388 ms MUSE SYSTEM Calculated P Dixon 51 degrees MUSE SYSTEM Calculated R Dixon 52 degrees MUSE SYSTEM Calculated T Dixon 42 degrees MUSE SYSTEM INTERPRETATION Sinus bradycardia with sinus arrhythmia Nonspecific T wave abnormality Abnormal ECG When compared with ECG of 09-APR-2013 09:42, No significant change was found Confirmed by MD CARL, SERGO ([id number]) on 04/09/2013 6:04:44 PM MUSE SYSTEM 04/09/2013 2:24 PM EDT 04/09/2013 6:04 PM EDT Tavon Reed MD ECG ORDERABLES Performing Organization Address City/[facility] Co de Phone Number MUSE SYSTEM * Troponin T (04/09/2013 2:00 PM EDT) Pathologist [facility] Troponin-T <0.03 <=0.03 ng/mL [facility] Comment: 0.03 ng/mL: Represents the 99th percentile upper reference limit for normals. >0.03 ng/mL: Elevated cardiac troponin T level indicative of myocardial damage. Diagnosis of acute, evolving or recent CT requires a typical rise and gradual fall [...] consensus document of the Joint Society of Cardiology/[place] College of Cardiology Committee for the redefinition of myocardial infarction. Journal of the [place] College of Cardiology 2000; 36: 959-969] Blood specimen (specimen) 04/09/2013 2:00 PM EDT 04/09/2013 2:10 PM EDT Narrative Resulting Agency Comment Spec In Lab Tavon Reed MD CHEMISTRY ORDERABLES Performing Organization Address [facility] Co de Phone Number [facility]ORKELSE[facility] CORTEZJUANAMONTSERRAT * (ABNORMAL) Rapid Qual Drug Screen, Urine ([facility]) (04/09/2013 11:50 AM EDT) Pathologist [facility] MARILU Marijuana Metabolites Screen None Detected None Detected [facility] Comment: The marijuana metabolites screen detects the THC Metabolite (11-ped-1-carboxy- 9-THC) at concentrations >50 ng/mL. Qualitative Drug [...] damage. Diagnosis of acute, evolving or recent CT requires a typical rise and gradual fall [...] consensus document of the Joint Society of Cardiology/[place] College of Cardiology Committee for the redefinition of myocardial infarction. Journal of the [place] College of Cardiology 2000; 36: 959-969] Blood specimen (specimen) 04/09/2013 10:44 AM EDT 04/09/2013 10:56 AM EDT Narrative Resulting Agency Comment Spec In Lab Tavon Reed MD CHEMISTRY ORDERABLES Performing Organization Address [facility] Co de Phone Number [facility] * Glucose, random (04/09/2013 10:44 AM EDT) Glucose 86 60 - 199 mg/dL [facility] Comment:Diabetes: >=200 mg/d L plus symptoms Blood specimen (specimen) 04/09/2013 10:44 AM EDT 04/09/2013 10:56 AM EDT Narrative Resulting Agency Comment Spec In Lab Tavon Reed MD CHEMISTRY ORDERABLES Performing Organization Address [facility] Co de Phone Number [facility] * Creatinine (04/09/2013 10:44 AM EDT) Creatinine 0.75 0.70 - 1.20 mg/dL [facility] [employer] Comment: Please note that the pediatric reference intervals supplied above were not validated at [facility]. Results from pediatric patients should be interpreted in conjunction to the patient's age, height and muscle mass. Est Glomerular Filtration Rate >60 >=60 [facility] Comment: This estimated GFR (eGFR) value was [...] Reed MD CHEMISTRY ORDERABLES Performing Organization Address [facility] de Phone Number CERKELSEY MILLENNIUM * BUN (04/09/2013 10:44 AM EDT) Blood Urea Nitrogen 16 8 - 18 mg/dL [facility]ERN[facility] MILLENNIUM Blood specimen (specimen) 04/09/2013 10:44 AM EDT 04/09/2013 10:56 AM EDT Narrative Resulting Agency Comment Spec In Lab Tavon Reed MD CHEMISTRY ORDERABLES Performing Organization Address [facility] de Phone Number CERKELSEY MILLENNIUM * Electrolytes [...] Reed MD CHEMISTRY ORDERABLES Performing Organization Address [facility] Co de Phone Number CERKELSEY MILLENNIUM [...] (Bezet) 388 ms MUSE SYSTEM Calculated P Dixon 54 degrees MUSE SYSTEM Calculated R Dixon 56 degrees MUSE SYSTEM Calculated T Dixon 57 degrees MUSE SYSTEM INTERPRETATION Sinus bradycardia [...] Campos) documented in this encounter Care Teams Radioactivity Technician Relationship Specialty Start Date End Date Aman Lawrence APRN [address] [place] [address] PCP - General 06/16/10 06/27/18 documented as of this encounter
--- OUTSIDE RECORDS SUMMARY | 2024-08-15 13:39 | XMS_ITS | Encounter Summary ---
Author Organization [facility] [place] [address] Care Team Providers Care Cooker Syrup Name Role Phone Aman Lawrence APRN Primary Care Provider +1 [phone] Encounter Details Date Type Department Care Team (Late st Contact Info) Description 08/12/2010 9:00 AM EST Office Visit Functional Scientologist Program [place] [address] Tawnya Allison Social History Tobacco Use Types [...] on filedocumented in this encounter Care Teams Cooker Syrup Relationship Specialty Start Date End Date [place] [address] PCP - General 06/16/10 06/27/18 documented as of this encounter
--- OUTSIDE RECORDS SUMMARY | 2024-08-15 13:39 | XMS_ITS | Encounter Summary ---
Author Organization [facility] [place] [address] Care Team Providers Care Senior Mortgage Underwriter Name Role Phone Aman Lawrence APRN Primary Care Provider +1 [phone] Encounter Details Date Type Department Care Team (Late st Contact Info) Description 08/12/2010 7:55 AM EST Office Visit Functional Anglican Program [place] [address] Ananth Sesay, PT Social History Tobacco Use [...] filedocumented in this encounter Care Teams Senior Mortgage Underwriter Relationship Specialty Start Date End Date Aman Lawrence [place] [address] PCP - General 06/16/10 06/27/18 documented as of this encounter
--- OUTSIDE RECORDS SUMMARY | 2024-08-15 13:39 | XMS_ITS | Encounter Summary ---
[place] [address] Care Team Providers Care Solar Mechanical Engineer Name Role Phone Yisel Marroquin MD Primary Care Provider Unavail able Encounter Details Date Type Department Care Team (Late st Contact Info) Description 10/11/2011 Orders Only Radiology and Cardiology Results [address] [place] [address] Apd Conversion, Results Provider, Social [...] filedocumented in this encounter Care Teams Solar Mechanical Engineer Relationship Specialty Start Date End Date Yisel Marroquin MD PCP - General General Internal Medicine 03/06/19 0 documented as of this encounter
--- OUTSIDE RECORDS SUMMARY | 2024-08-15 13:39 | XMS_ITS | Encounter Summary ---
Author Organization [facility] [place] [address] Care Team Providers Care Bilingual Teacher Aide Name Role Phone Aman Lawrence APRN Primary Care Provider +1 [phone] Encounter Details Date Type Department Care Team (Late st Contact Info) Description 08/24/2010 8:00 AM EST Procedure visit [place] [address] Social History Tobacco Use Types Packs/Day Years Used Date Smoking Tobacco: Never Assessed Sex and Gender Information Value Date Recorded Sex Assigned at Not on file Gender Identity Not on file Sexual Orientation Not on file documented as of this encounter Plan of Treatment Not on file documented as of this encounter Visit Diagnoses Not on filedocumented in this encounter Care Teams Bilingual Teacher Aide Relationship Specialty Start Date End Date Aman Lawrence [place] [address] PCP - General 06/16/10 06/27/18 documented as of this encounter
--- OUTSIDE RECORDS SUMMARY | 2024-08-15 13:39 | XMS_ITS | Encounter Summary ---
Author Organization [facility] [place] [address] Care Team Providers Care Sustainability Officer Name Role Phone Aman Lawrence APRN Primary Care Provider [phone] [phone] Encounter Details Date Type Department Care Team (Late st Contact Info) Description 08/11/2010 9:00 AM EST Office Visit Functional Tenriism [place] [address] Tawnya Allison Social History Tobacco Use Types [...] on filedocumented in this encounter Care Teams Sustainability Officer Relationship Specialty Start Date End [place] [address] PCP - General 06/16/10 06/27/18 documented as of this encounter
--- OUTSIDE RECORDS SUMMARY | 2024-08-15 13:39 | XMS_ITS | Encounter Summary ---
Author Organization [facility] [place] [address] Care Team Providers Care Roll Winder Name Role Phone Yisel Marroquin MD Primary Care Provider Unavail able Encounter Details Date Type Department Care Team (Late st Contact Info) Description 10/11/2011 Orders Only Radiology and Cardiology Results [address] [place] [address] Apd Conversion, Results Provider, Social [...] filedocumented in this encounter Care Teams Roll Winder Relationship Specialty Start Date End Date Yisel Marroquin MD PCP - General 11/13/18 03/05/19 documented as of this encounter
--- OUTSIDE RECORDS SUMMARY | 2024-08-15 13:39 | XMS_ITS | Encounter Summary ---
Author Organization [facility] [place] [address] Care Team Providers Care Welt Beater Name Role Phone Aman Lawrence APRN Primary Care Provider +1 -[phone] Encounter Details Date Type Department Care Team (Late st Contact Info) Description 08/13/2010 8:30 AM EST Office Visit Functional Methodist Program [place] [address] Tawnya Allison Social History Tobacco Use Types [...] on filedocumented in this encounter Care Teams Welt Beater Relationship Specialty Start Date End [place] [address] PCP - General 06/16/10 06/27/18 documented as of this encounter
--- OUTSIDE RECORDS SUMMARY | 2024-08-15 13:39 | XMS_ITS | Encounter Summary ---
Author Organization [facility] Address [facility] [place] [address] Care Team Providers Care Fruit Distributor Name Role Phone Aman Lawrence APRN Primary Care Provider +1 [phone] Encounter Details Date Type Department Care Team (Latest Contact Info) Description 12/04/2010 11:46 AM EDT - 12/04/2010 8:23 PM EDT Hospital Encounter [place] [phone] Skinny Gomez MD Trus, Thadeus L, MD [facility] [place] [address] Discharge Disposition: Home Social History Tobacco Use [...] vitamins (B COMPLEX-VITAMIN B12) tablet 09/23/2010 11/19/2016 zyfmoaocoidz-zngv-bfzv rals (COMPLETE MULTIVITAMIN) Tab tablet 1 Tablet(s), PO, Once daily 09/23/2010 11/19/2016 calcium citrate-vitamin D (CITRACAL+D) 315-200 mg-unit per tablet 2 Tablet(s), PO, Twice daily 09/23/2010 11/19/2016 ergocalciferol (VITAMIN D) 50,000 unit capsule [id number], PO, TWICE a week 09/23/2010 11/19/2016 documented [...] RN) documented in this encounter Care Teams Fruit Distributor Relationship Specialty Start Date End Date Aman Lawrence APRN [address] [place] [address] PCP - General 06/16/10 06/27/18 documented as of this encounter
--- OUTSIDE RECORDS SUMMARY | 2024-08-15 13:39 | XMS_ITS | Encounter Summary ---
[place] [address] Care Team Providers Care Clerical Investigator Name Role Phone Aman Lawrence APRN Primary Care Provider [phone] [phone] Encounter Details Date Type Department Care Team (Late st Contact Info) Description 08/13/2010 11:00 AM EST Follow[place] [address] Sidra Del Toro APRN Discharge Disposition: Home [...] Absolute 0.01 0.00 - 0.05 x10(3)/mc L [facility] Blood specimen (specimen) 08/13/2010 12:42 PM EST 08/13/2010 12:58 PM EST Sidra Del Toro APRN HEMATOLOGY ORDERA BLES Performing Organization Address [facility]/ZIP Co de Phone Number [facility] * (ABNORMAL) REFLEX LAB-PTH (08/13/2010 12:42 PM EST) Parathyroid Hormone 66(H) 15 - 65 pg/mL [facility] Comment: Please note the change in reference range from 10-57 pg/mL to 15-65 pg/mL (11/04/2008). Blood specimen (specimen) 08/13/2010 12:42 PM EST 08/13/2010 12:58 PM EST Sidra Del Toro APRN CHEMISTRY ORDERAB LES Performing Organization Address [facility] Co de Phone Number [facility] * (ABNORMAL) VITAMIN D 25 HYDROXY (08/13/2010 12:42 PM EST) 25-Hydroxy D2 <4.0 ng/mL [facility] Comment: Test Performed by: [place] [address] Complaint Evaluation Officer: Kimberly Antonio, Ph.D. 25-Hydroxy D3 11 ng/mL [facility] Comment: Test Performed by: [place] [address] Complaint Evaluation Officer: Kimberly Antonio, Ph.D. Vitamin D Total 25 OH 11(L) ng/mL [facility] Comment: Interpretation: 10-24 (mild to moderate deficiency) -- REFERENCE VALUE -- 25-HYDROXY D TOTAL (D2+D3) Optimum levels in the normal population are 25-80 Test Performed by: [place] [address] Complaint Evaluation Officer: Kimberly Antonio, Ph.D. Blood specimen (specimen) 08/13/2010 12:42 PM EST 08/13/2010 2:17 PM EST Sidra Del Toro APRN CHEMISTRY ORDERAB LES Performing Organization Address [facility] Co de Phone Number [facility] * (ABNORMAL) VITAMIN B1, WHOLE BLOOD (08/13/2010 12:42 PM EST) Vit B1 Lvl Wb (NOVEMBER) 82(L) 87 - 280 nmol/L [facility] Comment: Test Performed by [employer] [place], [employer] [facility], [address] [place] [address] Patricio Jolly M.D., Ph.D., Director of Laboratories , CLIA [id number] Blood specimen (specimen) 08/13/2010 12:42 PM EST 08/13/2010 1:25 PM EST Sidra Del Toro APRN LAB SEND OUT ORDE RABLES Performing Organization Address [facility] Co sc Phone Number [facility] * (ABNORMAL) PREALBUMIN (08/13/2010 12:42 PM EST) Prealbumin 14(L) 20 - 40 mg/dL [facility] Comment: Prealbumin levels are generally lower in the pediatric population; adult concentrations are usually attained near puberty. Blood specimen (specimen) 08/13/2010 12:42 PM EST 08/13/2010 12:58 PM EST Sidra Del Toro APRN CHEMISTRY ORDERAB LES Performing Organization Address [facility] Co de Phone Number [facility] * VITAMIN B12 (08/13/2010 12:42 PM EST) Vitamin B12 789 207 - 974 pg/mL [facility] Blood specimen (specimen) 08/13/2010 12:42 PM EST 08/13/2010 12:58 PM EST Sidra Del Toro APRN CHEMISTRY ORDERAB LES Performing Organization Address City/[facility] Co de Phone Number [facility] * (ABNORMAL) VITAMIN A (08/13/2010 12:42 PM EST) Vitamin A (NOVEMBER) 27.8(L) 32.5 - 78.0 mcg/dL [facility] Comment: Test Performed by: [place] [address] Complaint Evaluation Officer: Kimberly Antonio, Ph.D. Blood specimen (specimen) 08/13/2010 12:42 PM EST 08/13/2010 2:17 PM EST Sidra Del Toro APRN LAB SEND OUT ORDE RABLES Performing Organization Address [facility] Co de Phone Number [facility] * FOLATE RBC (08/13/2010 12:42 PM EST) Hematocrit 36.8 34.0 - 45.0 % [facility]NI[facility] RBC Folate 590 460 - 1500 ng/mL [facility] Blood specimen (specimen) 08/13/2010 12:42 PM EST 08/13/2010 12:58 PM EST Sidra Del Toro APRN CHEMISTRY ORDERAB LES Performing Organization Address City/[facility]/ZIP Co de Phone Number [facility] * [...] 08/13/2010 12:58 PM EST Sidra Del Toro SPORTS EQUIPMENT REPAIRER CHEMISTRY ORDERAB LES Performing Organization Address City/[facility]/ZIP Co de Phone Number [facility] * (ABNORMAL) IRON AND TIBC (08/13/2010 12:42 PM EST) Iron 21(L) 30 - 150 mcg/dL [facility] TIBC 368 250 - 450 mcg/dL [facility] Iron Saturation 6(L) 20 - 50 % [facility] Blood specimen (specimen) 08/13/2010 12:42 PM EST 08/13/2010 12:58 PM EST Sidra T Alverto SPORTS EQUIPMENT REPAIRER CHEMISTRY ORDERAB LES Performing Organization Address [facility] Co de Phone Number [facility] * (ABNORMAL) FERRITIN (08/13/2010 12:42 PM EST) Ferritin 12(L) 15 - 150 ng/mL [facility] Comment: Pediatric reference ranges not verified at [facility], interpret with caution. Reference ranges for females greater than 50 years of age approach values for men, i.e., 30-400 ng/mL. Blood specimen (specimen) 08/13/2010 12:42 PM EST 08/13/2010 12:58 PM EST Sidra T Alverto SPORTS EQUIPMENT REPAIRER CHEMISTRY ORDERAB LES Performing Organization Address City/[facility]/ZIP Co de Phone Number [facility] * [...] APRN HEMATOLOGY ORDERA BLES Performing Organization Address City/State/[facility] Co de Phone Number [facility] documented in this encounter Visit Diagnoses Not on filedocumented in this encounter Care Teams Clerical Investigator Relationship Specialty Start Date End Date Aman Lawrence [place] [address] PCP - General 06/16/10 06/27/18 documented as of this encounter
--- OUTSIDE RECORDS SUMMARY | 2024-08-15 13:39 | XMS_ITS | Encounter Summary ---
[place] [address] Care Team Providers Care Elevator Erector Name Role Phone Aman Lawrence APRN Primary Care Provider +1 [phone] Encounter Details Date Type Department Care Team (Latest Contact Info) Description 11/20/2010 1:44 PM EDT - 11/20/2010 7:55 PM EDT Hospital [place] [phone] Skinny Gomez MD Discharge Disposition: Home Social [...] vitamins (B COMPLEX-VITAMIN B12) tablet 09/23/2010 11/19/2016 etpatnvtepkv-lfeo-ruaw rals (COMPLETE MULTIVITAMIN) Tab tablet 1 Tablet(s), PO, Once daily 09/23/2010 11/19/2016 calcium citrate-vitamin D (CITRACAL+D) 315-200 mg-unit per tablet 2 Tablet(s), PO, Twice daily 09/23/2010 11/19/2016 ergocalciferol (VITAMIN D) 50,000 unit capsule [id number], PO, TWICE a week 09/23/2010 11/19/2016 documented as of this encounter Miscellaneous Notes * Miscellaneous - Provider, Scanning - 11/20/2010 4:02 PM EDT documented in this encounter Plan of Treatment Not on file documented as of this encounter Visit Diagnoses Not on filedocumented in this encounter Care Teams Elevator Erector Relationship Specialty Start Date End Date Aman Lawrence APRN [address] [place] [address] PCP - General 06/16/10 06/27/18 documented as of this encounter
--- OUTSIDE RECORDS SUMMARY | 2024-08-15 13:39 | XMS_ITS | Encounter Summary ---
Author Organization [facility] [place] [address] Care Team Providers Care Area Development Consultant Name Role Phone Aman Lawrence APRN Primary Care Provider +1 [phone] Encounter Details Date Type Department Care Team (Late st Contact Info) Description 01/18/2011 [place] [address] Lay Davis RN Social History Tobacco Use [...] on filedocumented in this encounter Care Teams Area Development Consultant Relationship Specialty Start Date End [place] [address] PCP - General 06/16/10 06/27/18 documented as of this encounter
--- OUTSIDE RECORDS SUMMARY | 2024-08-15 13:39 | XMS_ITS | Encounter Summary ---
Author Organization [facility] Address [address] [place] [address] Care Team Providers Care Development Editor Name Role Phone Yisel Marroquin MD Primary Care Provider Unavail able Encounter Details Date Type Department Care Team (Late st Contact Info) Description 03/13/2013 Interpretation Only Radiology [address] [place] [address] Unknown None Social History Tobacco Use Types [...] 7:35 AM EDT APD Historical Result Principal Unit Assembler: ??BERYL ??BASIM MRI LUMBAR SPINE: CLINICAL HISTORY: [...] protrusion at L5/S1. Beryl Stallworth MD ALBAN/cornelio [id number] CC: Procedure Note Unknown - 01/22/2019 APD Historical Result Principal Unit Assembler: BERYL STALLWORTH MRI LUMBAR SPINE: CLINICAL HISTORY: [...] protrusion at L5/S1. Beryl Stallworth MD ALBAN/cornelio [id number] CC: Unknown IMG MRI ORDERABLES documented in this encounter Visit Diagnoses Not on filedocumented in this encounter Care Teams Development Editor Relationship Specialty Start Date End Date Yisel Marroquin MD PCP - General 11/13/18 03/05/19 documented as of this encounter
--- OUTSIDE RECORDS SUMMARY | 2024-08-15 13:39 | XMS_ITS | Encounter Summary ---
Author Organization [facility] [place] [address] Care Team Providers Care Property Valuer Name Role Phone Aman Lawrence APRN Primary Care Provider [phone] Encounter Details Date Type Department Care Team (Latest Contact Info) Description 08/14/2010 1:25 PM EST Procedure visit Functional [facility] [place] [address] Bong Cabrera MD Discharge Disposition: Home Social [...] filedocumented in this encounter Care Teams Property Valuer Relationship Specialty Start Date End Date Aman Lawrence [place] [address] PCP - General 06/16/10 06/27/18 documented as of this encounter
--- OUTSIDE RECORDS SUMMARY | 2024-08-15 13:39 | XMS_ITS | Encounter Summary ---
Author Organization [facility] [place] [address] Care Team Providers Care Vertical Boring Mill Operator Name Role Phone Aman Lawrence APRN Primary Care Provider [phone] Encounter Details Date Type Department Care Team (Late st Contact Info) Description 08/14/2010 7:55 AM EST Office Visit Functional [facility] [place] [address] Ananth Sesay, PT Social History Tobacco Use [...] on filedocumented in this encounter Care Teams Vertical Boring Mill Operator Relationship Specialty Start Date End Date Aman Lawrence [place] [address] [place] [address] PCP - General 06/16/10 06/27/18 documented as of this encounter
--- OUTSIDE RECORDS SUMMARY | 2024-08-15 13:39 | XMS_ITS | Encounter Summary ---
Author Organization [facility] [place] [address] Care Team Providers Care Marketing Operations Assistant Name Role Phone Aman Lawrence APRN Primary Care Provider [phone] Encounter Details Date Type Department Care Team (Late st Contact Info) Description 08/13/2010 7:55 AM EST Office Visit Functional [facility] [place] [address] Ananth Sesay, PT Social History Tobacco Use [...] filedocumented in this encounter Care Teams Marketing Operations Assistant Relationship Specialty Start Date End Date Aman Lawrence [place] [address] PCP - General 06/16/10 06/27/18 documented as of this encounter
--- OUTSIDE RECORDS SUMMARY | 2024-08-15 13:39 | XMS_ITS | Encounter Summary ---
Author Organization [facility] Address [address] [facility] [place] [address] Care Team Providers Care Fire Engine Operator Name Role Phone Yisel Marroquin MD Primary Care Provider Unavail able Encounter Details Date Type Department Care Team (Late st Contact Info) Description 11/10/2011 Interpretation Only Radiology [address] [facility] [place] [address] Unknown None Social History Tobacco Use Types [...] 7:42 AM EDT APD Historical Result Principal Cosmetic Assembler: ??ISAK ??ESCHBACH DIRECT-DIGITAL SCREENING MAMMOGRAM: COMPARISON: ??August 06, 2007. ??June 13, 2006. Interpretation is made with the benefit of CAD. The examination consists of bilateral CC and MLO views. Breast composition is predominately fatty. There are no suspicious clusters of microcalcifications, suspicious masses, or areas of architectural distortion to suggest malignancy. IMPRESSION: ACR 1 - NEGATIVE MAMMOGRAM / A12. Isak Benavides DO [facility] [id number] CC: Procedure Note Unknown - 01/23/2019 APD Historical Result Principal Cosmetic Assembler: ISAK BENAVIDES DIRECT-DIGITAL SCREENING MAMMOGRAM: COMPARISON: August 06, 2007. June 13, 2006. Interpretation is made with the benefit of CAD. The examination consists of bilateral CC and MLO views. Breast composition is predominately fatty. There are no suspicious clusters of microcalcifications, suspiciousmasses, or areas of architectural distortion to suggest malignancy. IMPRESSION: ACR 1 - NEGATIVE MAMMOGRAM / A12. Isak Benavides DO [facility] [id number] CC: Unknown IMG MAMMO ORDERABLES documented in this encounter Visit Diagnoses Not on filedocumented in this encounter Care Teams Fire Engine Operator Relationship Specialty Start Date End Date Yisel Marroquin MD PCP - General 11/13/18 03/05/19 documented as of this encounter
--- OUTSIDE RECORDS SUMMARY | 2024-08-15 13:39 | XMS_ITS | Encounter Summary ---
Author Organization [facility] [place] [address] Care Team Providers Care Coroner Transport Technician Name Role Phone Yisel Marroquin MD Primary Care Provider Unavail able Encounter Details Date Type Department Care Team (Late st Contact Info) Description 11/14/2012 Orders Only Radiology and Cardiology Results [address] [place] [address] Apd Conversion, Results Provider, Social [...] 116.9 [address] CONVERSION Hemoglobin A1c 6.1(Window And Door Installer al Lab) 4.5 - 6.2 KORI FLORES DAY CONVERSION 11/14/2012 Results Provider Apd Conversion MD JASON ESTRELLA ORDERABLES [facility] DAY CONVERSION documented in this encounter Visit Diagnoses Not on filedocumented in this encounter Care Teams Coroner Transport Technician Relationship Specialty Start Date End Date Yisel Marroquin MD PCP - General 11/13/18 03/05/19 documented as of this encounter
--- OUTSIDE RECORDS SUMMARY | 2024-08-15 13:39 | XMS_ITS | Encounter Summary ---
Author Organization [facility] [place] [address] Care Team Providers Care Transportation Mechanic Name Role Phone Aman Lawrence APRN Primary Care Provider [phone] Encounter Details Date Type Department Care Team (Late st Contact Info) Description 08/24/2010 8:30 AM EST Office Visit Psychiatry [place] [address] Sadie Chisholm [facility] [address] [place] [address] Social History Tobacco Use Types Packs/Day Years Used Date Smoking Tobacco: Never Assessed Sex and Gender Information Value Date Recorded Sex Assigned at Not on file Gender Identity Not on file Sexual Orientation Not on file documented as of this encounter Plan of Treatment Not on file documented as of this encounter Visit Diagnoses Not on filedocumented in this encounter Care Teams Transportation Mechanic Relationship Specialty Start Date End Date Aman Lawrence [place] [address] PCP - General 06/16/10 06/27/18 documented as of this encounter
--- OUTSIDE RECORDS SUMMARY | 2024-08-15 13:39 | XMS_ITS | Encounter Summary ---
[facility] [place] [place] [address] Care Team Providers Care Yacht Master Name Role Phone Aman Lawrence APRN Primary Care Provider [phone] Encounter Details Date Type Department Care Team (Late st Contact Info) Description 09/23/2010 9:00 AM EST Office [place] [address] Bong Cabrera MD Discharge Disposition: Home Social [...] on filedocumented in this encounter Care Teams Yacht Master Relationship Specialty Start Date End Date Aman Lawrence [place] [address] PCP - General 06/16/10 06/27/18 documented as of this encounter
--- OUTSIDE RECORDS SUMMARY | 2024-08-15 13:39 | XMS_ITS | Encounter Summary ---
Author Organization [facility] [place] [address] Care Team Providers Care Correctional Maintenance Technician Name Role Phone Adriana Perla APRN Primary Care Provider [phone] Reason for Visit * Reason Comments Chest Pain Encounter Details Date Type Department Care Team (Late st Contact Info) Description 04/16/2013 10:00 AM EDT - 04/16/2013 11:00 AM EDT [place] [id number] Sergo Goins MD [facility] [place] [address] CARDIAC CATHETERIZATION Social History Tobacco Use Types [...] 2, 2PM Dr. Stephanie Osman [address] [place] [address] May 10, 8:10AM Ambrosio Maloney Cardiology [facility] Your Primary Care Provider: ADRIANA PERLA APRN [address] / [place] [address] For questions regarding this document or issues relating to this hospitalization on the Medical Service, please contact your inpatient physician through the [facility] Industrial Hygiene Technician . Issues afterhours and on weekends will be handled by the Hospitalist staff on-call. * Attachments The following attachments cannot be sent through Care Everywhere. * PERCUTANEOUS CORONARY INTERVENTION: WHAT TO EXPECT AT HOME (GEORGIAN) documented in this encounter Medications at Time [...] vitamins (B COMPLEX-VITAMIN B12) tablet 09/23/2010 11/19/2016 cdoeidqwnqpv-pisf-eel erals (COMPLETE MULTIVITAMIN) Tab tablet 1 Tablet(s), PO, Once daily 09/23/2010 11/19/2016 calcium citrate-vitamin D (CITRACAL+D) 315-200 mg-unit per tablet 2 Tablet(s), PO, Twice daily 09/23/2010 11/19/2016 ergocalciferol (VITAMIN D) 50,000 unit capsule [id number], PO, TWICE a week 09/23/2010 11/19/2016 documented as of this encounter Progress Notes * Margarita Sharma RN - 04/17/2013 3:37 PM EDT 1540- Discharge orders available. Pt and career development specialist given discharge AVS, discharge summary, percutaneous intervention care instructions, medication information, diabetes tool kit and nutrition information via verbal and written communication. Pt and career development specialist expressed a correct verbal understanding of discharge instructions, percutaneous intervention care instructions and medication information. Pt disconnected from telemetry and IVs removed. Pt brought to [facility] via wheelchair and discharged [...] a CHO level 2 diet. Recommend adding [facility] (Heart Healthy) to current diet order. 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 Recommend a daily multivitamin with minerals, 500 mcg of vitamin B12 daily, and 600 mg of calcium twice daily. Pt reports taking these vitamins consistently at home. P: 1. Recommend adding [facility] (Heart Healthy) to current diet order. 2. [...] at this time. Andres Good, MARYLIN Beeper# [id number] * Freddy Mejias MD - 04/17/2013 5:23 [...] Somers DO (PGY-1) Internal Medicine Resident Pager [phone] STAFF ADDENDUM Patient interviewed and examined. Medical [...] but hard and tender at the groin herann area. Call to MD to check the right groin; no new orders at this time. * Andres Good PT - 04/16/2013 2:41 PM EDT Physical Therapy Note Pt had cardiac cath today and is on bedrest until later today. Will follow up tomorrow as appropriate. Andres Good, PT Beeper# [id number] * Jeremy Radford OT - 04/16/2013 10:24 AM EDT Chart reviewed and orders received. 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 RN reports patient mobilizingwell [...] Somers DO (PGY-1) Internal Medicine Resident Pager [phone] STAFF ADDENDUM Patient interviewed and examined. Medical [...] tablets and recommended she follow-up with a Security Systems Installer. This appointment was scheduled for 04/19 (5 [...] with 325mg of Aspirin in route to [facility]. While in the ED, she had another [...] Social history: , no children. Lives in [place]. 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 Smoking: Active smoker, 2ppd Alcohol: Prior [...] story is co ncerning for a Type-I MO. I suspect she will need a Cardiac [...] Rae, elder sister) Kasia Cruz, PGY-2 Pager [phone] STAFF ADDENDUM Patient interviewed and examined. Medical [...] 04/18/2013 1:04 PM EDTAssociated Order(s): SCAN DOC: BLACKTOP SPREADER * Provider, Scanning - 04/16/2013 4:59 PM [...] Report given to Donna Saunders RN. * Taovn Reed MD - 04/14/2013 10:18 PM EDT [...] has arragned for her to see a toy consultant this coming . She comes in tonight [...] Score for ED patients with possible ACS, ([facility] 2009February 03:182(10):0837-87): 1) Age >= 65 years? +1 2) [...] of 19%. Score: 14-day triple point (mortality, MO, revascularization) 0 1.8% 1 4.0% 2 8.3% [...] to their service. Tavon Reed MD 04/14/13 3796 Recent Results (from the past 24 hour(s)) [...] URINE DIPSTICK Component Value Range POC Sp [place] 1.010 1.002 - 1.030 POC pH, UA [...] Internal Controls Acceptable Tavon Reed MD 04/14/13 3680 Tavon Reed MD 04/14/13 6257 * Vandana Marte RN - 04/14/2013 9:32 [...] tablets and recommended she follow-up with a Security Systems Installer. This appointment was scheduled for 04/19 (5 [...] with 325mg of Aspirin in route to [facility]. While in the ED, she had another [...] complex vitamins (B COMPLEX-VITAMIN B12) tablet Oral updhepzznswf-ekly-zoaixxwi (COMPLETE MULTIVITAMIN) Tab tablet 1 Tablet(s), PO, Once daily, Oral calcium citrate-vitamin D (CITRACAL+D) 315-200 mg-unit per tablet 2 Tablet(s), PO, Twice daily, Oral ergocalciferol (VITAMIN D) 50,000 unit capsule [id number], PO, TWICE a week, Oral varenicline (CHANTIX) [...] 2PM Dr. Stephanie Osman [address] [place] [address] May 10, 8:10AM Ambrosio Maloney Cardiology [facility] 4[facility] Your Primary Care Provider: ADRIANA PERLA APRN [address] [place] [address] For questions regarding this document or issues relating to this hospitalization on the Medical Service, please contact your inpatient physician through the [facility] Industrial Hygiene Technician . Issues afterhours and on weekends will be handled by the Hospitalist staff on-call. General Instructions None Future Appointments and Orders Future Appointments: Provider: Department: Dept Phone: Center: 05/03/2013 1:30 PM [facility] Cardiac Re[facility] Prog Non-Invasive Cardiology Lab [phone] None 05/10/2013 8:10 AM Freddy Mejias MD Cardiology [phone] [facility] Joint Appt Nurse One Cardiology Intake, RN PETEY 4A [phone] [facility] Future Orders Please Complete By Expires Referral to Cardiac Rehab [[id number] Custom] Process Instructions: If no progress note charted, please enter Clinical details in comments. Scheduling Instructions: Comments: Cardiac rehab at [facility] Questions: Responses: Reason for referral Angina, PCI Provider Contact Information: ADRIANA PERLA, HEALTHCARE CONSULTANT [address] / [facility] [address] Discharge References/Attachments: Discharge References/Attachments PERCUTANEOUS CORONARY INTERVENTION: WHAT TO EXPECT AT HOME (GEORGIAN) Signed: Jefe Sharma, PGY-3 DATE: 04/19/13 * [...] parameters for home exercise. Phase II Referral: [facility], intake 05/03 at 1:30 Activity Summary: By [...] O2 Sat 95% 98% Slow pace but valentnia well ECG SR SR * Miscellaneous - [...] distant, but clear. On quality assurance monitor body she is in NSR no ectopy. Friend [...] Procedure Name Priority Date/Time Associated Diagnosis Comments BLACKTOP SPREADER SCAN 04/18/2013 1:04 PM EDT CARDIAC CATHETERIZATION [...] Routine 04/16/2013 1:16 PM EDT CARDIAC ENZYMES ([facility]) STAT 04/16/2013 12:00 PM EDT ECHOCARDIOGRAM TRANSTHORACIC [...] Routine 04/15/2013 11:27 AM EDT CARDIAC ENZYMES ([facility]) Routine 04/15/2013 10:28 AM EDT APTT STAT [...] STAT 04/14/2013 9:10 PM EDT CARDIAC ENZYMES ([facility]) STAT 04/14/2013 9:10 PM EDT CREATININE STAT 04/14/2013 9:10 PM EDT CBC (WITH DIFF) STAT 04/14/2013 9:10 PM EDT BUN STAT 04/14/2013 9:10 PM EDT GLUCOSE STAT 04/14/2013 9:10 PM EDT ELECTROLYTES PANEL STAT 04/14/2013 9: 10 PM EDT EKG 12-LEAD STAT 04/14/2013 8:57 PM EDT documented in this encounter Results * SCAN DOC: BLACKTOP SPREADER (04/18/2013 1:04 PM EDT) Anatomical Region Laterality [...] POC 138 60 - 199 mg/dL [facility] Comment: Supplemental ranges: <110 mg/dL before meals <200 mg/dL all other times of the day Blood specimen (specimen) 04/17/2013 11:50 AM EDT 04/17/2013 11:50 AM EDT Freddy Mejias MD POINT OF CARE TEST O RDERABLES Performing Organization Address [facility] de Phone Number [facility] * (ABNORMAL) Hemoglobin (04/17/2013 11:13 AM EDT) Hemoglobin 10.2(L) 11.2 - 15.7 gm/dL [facility] Blood specimen (specimen) 04/17/2013 11:13 AM EDT 04/17/2013 11:27 AM EDT Narrative Resulting Agency Comment Spec In Lab Freddy Mejias MD HEMATOLOGY ORDERABLE S Performing Organization Address [facility] de Phone Number [facility] * POCT Glucose (04/17/2013 7:37 AM EDT) Glucose, POC 95 60 - 199 mg/dL [facility] Comment: Supplemental ranges: <110 mg/dL before meals <200 mg/dL all other times of the day Blood specimen (specimen) 04/17/2013 7:37 AM EDT 04/17/2013 7:37 AM EDT Freddy Mejias MD POINT OF CARE TEST O RDERABLES Performing Organization Address [facility]/ZIP Co de Phone Number CERNER DIEGOENNIUM * EKG 12 Lead (04/17/2013 7:21 AM EDT) Ventricular rate 49 BPM MUSE SYSTEM Atrial Rate 49 BPM MUSE SYSTEM P-R Interval 150 ms MUSE SYSTEM QRS Duration 88 ms MUSE SYSTEM Q-T Interval 460 ms MUSE SYSTEM QTC Calculated (Bezet) 415 ms MUSE SYSTEM Calculated P [place] 41 degrees MUSE SYSTEM Calculated R [place] 63 degrees MUSE SYSTEM Calculated T [place] 139 degrees MUSE SYSTEM INTERPRETATION Marked sinus [...] Reed MD ECG ORDERABLES Performing Organization Address [facility] de Phone Number MUSE SYSTEM [...] intervals supplied above were not validated at [facility]. Results from pediatric patients should be interpreted [...] MD HEMATOLOGY ORDERABLE S Performing Organization Address [facility] de Phone Number [facility] * POCT Glucose (04/16/2013 8:26 PM EDT) Glucose, POC 130 60 - 199 mg/dL [facility] Comment: Supplemental ranges: <110 mg/dL before meals <200 mg/dL all other times of the day Blood specimen (specimen) 04/16/2013 8:26 PM EDT 04/16/2013 8:26 PM EDT Freddy Mejias MD POINT OF CARE TEST O RDERABLES Performing Organization Address [facility] de Phone Number [facility] * POCT Glucose (04/16/2013 4:35 PM EDT) Glucose, POC 101 60 - 199 mg/dL [facility] Comment: Supplemental ranges: <110 mg/dL before meals <200 mg/dL all other times of the day Blood specimen (specimen) 04/16/2013 4:35 PM EDT 04/16/2013 4:35 PM EDT Freddy Mejias MD POINT OF CARE TEST O RDERABLES Performing Organization Address [facility] de Phone Number [facility] * EKG 12 Lead (04/16/2013 1:16 PM EDT) Ventricular rate 55 BPM MUSE SYSTEM Atrial Rate 55 BPM MUSE SYSTEM QRS Duration 76 ms MUSE SYSTEM Q-T Interval 458 ms MUSE SYSTEM QTC Calculated (Bezet) 438 ms MUSE SYSTEM Calculated P [place] 91 degrees MUSE SYSTEM Calculated R [place] 61 degrees MUSE SYSTEM Calculated T [place] 96 degrees MUSE SYSTEM INTERPRETATION Sinus bradycardia ST & T wave abnormality, consider anterolateral ischemia Abnormal ECG When compared with ECG of 15-APR-2013 12:49, T wave inversion less evident in Lateral leads Confirmed by MD WILBER, SERGO ([id number]) on 04/17/2013 9:58:29 PM MUSE SYSTEM 04/16/2013 1:16 PM EDT 04/17/2013 9:58 PM EDT Sergo Goins MD ECG ORDERABLES Performing Organization Address City/[facility]/ZIP Co de Phone Number MUSE SYSTEM * Cardiac Enzymes (04/16/2013 12:00 PM EDT) Pathologist [facility] Troponin-T <0.03 <=0.03 ng/mL [facility] SeedInvestTUSTIN [facility] Comment: 0.03 ng/mL: Represents the 99th percentile upper reference limit for normals. >0.03 ng/mL: Elevated cardiac troponin T level indicative of myocardial damage. Diagnosis of acute, evolving or recent MO requires a typical rise and gradual fall [...] consensus document of the Joint Society of Cardiology/[place] College of Cardiology Committee for the redefinition of myocardial infarction. Journal of the [place] College of Cardiology 2000; 36: 959-969] Creatine Kinase 39 0 - 160 unit/L [facility] Studio [facility]aleCAROLINAS [facility] Blood specimen (specimen) 04/16/2013 12:00 PM EDT 04/16/2013 12:05 PM EDT Narrative Resulting Agency Comment Spec In Lab Freddy Mejias MD CHEMISTRY ORDERABLES Performing Organization Address City/[facility]/ZIP Co de Phone Number [facility] iList * Echocardiogram Transthoracic(Leb) (04/16/2013 10:11 AM EDT) Pathologist [facility] EF 60 HEARTLAB SYSTEM Anatomical Region Laterality Modality Other 04/16/2013 Narrative 04/16/2013 10:37 AM EDT Procedure: ? Transthoracic Echocardiogram Patient: ? CARBINO JEANNIE L ?(Age): 1960(52) Med Rec#: ?[id number] ? Sex: ?F ? Site Loc: ?[facility] ? Ht / Wt: ??163(cm)/115(kg) Pt. Loc: ? Adult Floor ?BSA: ?2.28 Study Date: ?04/16/2013 ? Pt. Type: Inpatient Tape: ? Referring: Tavon Reed Foreign Exchange Trader: Dereck Diaz Diagnosis:CPT Code(s): ??Echo Full (94203), ??Spectral Doppler (70485), Color Doppler (73261), ??Optison (34720WF), ??Spectral Doppler (39262), Color Doppler (92067), ??Definity (17472DL), ??Echo Full (76754), Indication(s): ??Angina Rhythm: HR ?BP ?134/69 ?? [...] ? Mid-Inferior ?Normal ? Mid-Inferoseptal ?Normal ? Winnie-Septal ? Normal ? Winnie-Anterior ? Normal ? Winnie-Lateral ?Normal ? Winnie-Inferior ? Normal ? Winnie-Tip ?Normal ? Chambers ?Value ?Units (Range) ? [...] 04/16/2013 10:36:51 Images reviewed and interpretation verified [facility] Procedure Note Chalino Gomez MD - 04/16/2013 Procedure: Transthoracic Echocardiogram Patient: APOLINAR SHAY(Age): 1960(52) Med Rec#: [id number] Sex: F Site Loc: [facility] Ht / Wt: 163(cm)/115(kg) Pt. Loc: Adult Floor BSA: 2.28 Study Date: 04/16/2013 Pt. Type: Inpatient Tape: Referring: Tavon Reed Foreign Exchange Trader: Dereck Diaz Diagnosis:CPT Code(s): Echo Full (65665), Spectral Doppler (33877), Color Doppler (27459), Optison (41467PD), Spectral Doppler (45516), Color Doppler (45924), Definity (76123TR), Echo Full (06870), Indication(s): Angina Rhythm: HR BP 134/69 SUMMARY: [...] Normal Mid-Posterolateral Normal Mid-Inferior Normal Mid-Inferoseptal Normal Winnie-Septal Normal Winnie-Anterior Normal Winnie-Lateral Normal Winnie-Inferior Normal Winnie-Tip Normal Chambers Value Units (Range) IVSd 2D [...] 04/16/2013 10:36:51 Images reviewed and interpretation verified [facility] Tavon Reed MD ECHO [...] intervals supplied above were not validated at [facility]. Results from pediatric patients should be interpreted [...] MD HEMATOLOGY ORDERABLE S Performing Organization Address [facility] de Phone Number CH[facility] SALAZAR [...] MD HEMATOLOGY ORDERABLE S Performing Organization Address [facility] de Phone Number CHI MONTANOIUM * Prothrombin [...] MD HEMATOLOGY ORDERABLE S Performing Organization Address [facility] de Phone Number CHI SALAZAR [...] MD HEMATOLOGY ORDERABLE S Performing Organization Address [facility] de Phone Number [facility] * POCT Glucose (04/15/2013 8:50 PM EDT) Glucose, POC 127 60 - 199 mg/dL [facility] Comment: Supplemental ranges: <110 mg/dL before meals <200 mg/dL all other times of the day Blood specimen (specimen) 04/15/2013 8:50 PM EDT 04/15/2013 8:50 PM EDT Freddy Mejias MD POINT OF CARE TEST O RDERABLES Performing Organization Address [facility] Phone Number [facility] * (ABNORMAL) APTT (04/15/2013 5:00 PM EDT) Partial Thromboplastin Time 108(H) 25 - 35 sec [facility] Comment: Recommended therapeutic PTT range for full dose unfractionated heparin is 80-114 seconds. Blood specimen (specimen) 04/15/2013 5:00 PM EDT 04/15/2013 11:16 PM EDT Narrative Resulting Agency Comment Spec In Lab Freddy Mejias MD HEMATOLOGY ORDERABLE S Performing Organization Address [facility] Phone Number [facility] * POCT Glucose (04/15/2013 3:54 PM EDT) Glucose, POC 133 60 - 199 mg/dL [facility] Comment: Supplemental ranges: <110 mg/dL before meals <200 mg/dL all other times of the day Blood specimen (specimen) 04/15/2013 3:54 PM EDT 04/15/2013 3:54 PM EDT Freddy Mejias MD POINT OF CARE TEST O RDERABLES Performing Organization Address [facility] de Phone Number [facility] * EKG 12 Lead (04/15/2013 12:49 PM EDT) Ventricular rate 43 BPM MUSE SYSTEM Atrial Rate 43 BPM MUSE SYSTEM P-R Interval 156 ms MUSE SYSTEM QRS Duration 84 ms MUSE SYSTEM Q-T Interval 508 ms MUSE SYSTEM QTC Calculated (Bezet) 429 ms MUSE SYSTEM Calculated P [place] 42 degrees MUSE SYSTEM Calculated R [place] 36 degrees MUSE SYSTEM Calculated T [place] 146 degrees MUSE SYSTEM INTERPRETATION Marked sinus [...] * POCT Glucose (04/15/2013 11:27 AM EDT) [facility] Glucose, POC 99 60 - 199 mg/dL [facility] SeedInvestTUSTIN [facility]ATION [facility] Comment: Supplemental ranges: <110 mg/dL before meals <200 mg/dL all other times of the day Blood specimen (specimen) 04/15/2013 11:27 AM EDT 04/15/2013 11:27 AM EDT Freddy Mejias MD POINT OF CARE TEST O RDERABLES Performing Organization Address City/[facility]/ZIP Co de Phone Number [facility]ITALCrowdOptic * Cardiac Enzymes (04/15/2013 10:28 AM EDT) [facility] Troponin-T <0.03 <=0.03 ng/mL [facility] Comment: 0.03 ng/mL: Represents the 99th percentile upper reference limit for normals. >0.03 ng/mL: Elevated cardiac troponin T level indicative of myocardial damage. Diagnosis of acute, evolving or recent MO requires a typical rise and gradual fall [...] consensus document of the Joint Society of Cardiology/[place] College of Cardiology Committee for the redefinition of myocardial infarction. Journal of the [place] College of Cardiology 2000; 36: 959-969] Creatine Kinase 47 0 - 160 unit/L [facility] Blood specimen (specimen) 04/15/2013 10:28 AM EDT 04/15/2013 10:37 AM EDT Narrative Resulting Agency Comment Spec In Lab Tavon Reed MD CHEMISTRY ORDERABLES Performing Organization Address City/[facility]/ZIP Co de Phone Number [facility] iList * (ABNORMAL) APTT (04/15/2013 10:28 AM EDT) Partial Thromboplastin Time 66(H) 25 - 35 sec [facility] Comment: Recommended therapeutic PTT range for full dose unfractionated heparin is 80-114 seconds. Blood specimen (specimen) 04/15/2013 10:28 AM EDT 04/15/2013 10:37 AM EDT Narrative Resulting Agency Comment Spec In Lab Freddy Mejias MD HEMATOLOGY ORDERABLE S Performing Organization Address [facility] Co de Phone Number [facility] CORTEZTraiana * XR chest routine PA & lateral [...] Glucose, POC 108 60 - 199 mg/dL [facility] iList Comment: Supplemental ranges: <110 mg/dL before meals <200 mg/dL all other times of the day Blood specimen (specimen) 04/15/2013 7:59 AM EDT 04/15/2013 7:59 AM EDT Freddy Mejias MD POINT OF CARE TEST O RDERABLES Performing Organization Address [facility] Co de Phone Number [facility] SeedInvestPHOENIX MEMORIAL [email or web address] * EKG 12 Lead (04/15/2013 7:17 AM EDT) Ventricular rate 57 BPM MUSE SYSTEM Atrial Rate 57 BPM MUSE SYSTEM P-R Interval 148 ms MUSE SYSTEM QRS Duration 82 ms MUSE SYSTEM Q-T Interval 474 ms MUSE SYSTEM QTC Calculated (Bezet) 461 ms MUSE SYSTEM Calculated P [place] 41 degrees MUSE SYSTEM Calculated R [place] 54 degrees MUSE SYSTEM Calculated T [place] 123 degrees MUSE SYSTEM INTERPRETATION Sinus bradycardia [...] Goins MD ECG ORDERABLES Performing Organization Address [facility] Co de Phone Number MUSE SYSTEM [...] 4:54 AM EDT) Troponin-T <0.03 <=0.03 ng/mL [facility] Comment: 0.03 ng/mL: Represents the 99th percentile upper reference limit for normals. >0.03 ng/mL: Elevated cardiac troponin T level indicative of myocardial damage. Diagnosis of acute, evolving or recent MO requires a typical rise and gradual fall [...] consensus document of the Joint Society of Cardiology/[place] College of Cardiology Committee for the redefinition of myocardial infarction. Journal of the [place] College of Cardiology 2000; 36: 959-969] Creatine Kinase 36 0 - 160 unit/L [facility] Blood specimen (specimen) 04/15/2013 4:54 AM EDT 04/15/2013 5:33 AM EDT Narrative Resulting Agency Comment Spec In Lab Tavon Reed MD CHEMISTRY ORDERABLES [facility] * Hemoglobin A1c (04/15/2013 4:54 AM EDT) Hemoglobin A1c 6.1 4.3 - 6.1 % [facility] Comment: The [place] Diabetes Association (ADA) has stated that HbA1c [...] 1:S11-S66. Estimated Average Glucose 128 mg/dL [facility] Comment: eAG equivalents for HbA1c percentages: HbA1c(%) [...] into estimated average glucose values. ??Diabetes Care 2008:31(8):9397-4283. Blood specimen (specimen) 04/15/2013 4:54 AM EDT 04/15/2013 5:33 AM EDT Narrative Resulting Agency Comment Spec In Lab Tavon Reed MD CHEMISTRY ORDERABLES [facility] * (ABNORMAL) Lipid panel (fasting) (04/15/2013 4:54 AM EDT) Cholesterol, Total 159 <=199 mg/dL [facility] Comment: Recommendations of the NCEP Adult Treatment Panel for the following risk cutoff thresholds for the [place] population: Desirable: <200 mg/dL Borderline High: 200-239 mg/dL High: > or = 240 mg/dL Triglyceride 138 <=149 mg/dL [facility] Comment: Reference Range: Normal triglycerides: ??<150 mg/dL Borderline high: ??150-199 mg/dL High: ??200-499 mg/dL Very high: ??>oi=346 mg/dL KIP 2001; 285(19):2245-5393 HDL Cholesterol 30(L) >=40 mg/dL [facility] Comment: Reference range: ??Low HDL: ?? < 40 mg/dL ??Normal: ?40-60 mg/dL ??Desirable: > 60 mg/dL KIP 2001; 285(19):8121-3436 LDL Cholesterol 101(H) <=99 mg/dL [facility] Comment: Reference range: ?? Optimal: ?<100 mg/dL ?? Near Optimal/Above Optimal: ?? 100-129 mg/dL ?? Borderline high: ?130-159 mg/dL ?? High: ? 160-189 mg/dL ?? Very high: ?>ig=428 mg/dL KIP 2001: 285(19):9232-1953 Cholesterol/HDL Ratio 5.3 ratio CERNER MILLENNIUM Comment: A Cholesterol to HDL ratio below 4:1 is desirable. ??Studies suggest that increased CAD risk occurs at ratios above 5 for females and above 6 for men. ? [place] Heart Association ??(http://www.americanheart.org) ? Sadie [facility] Med, [...] Reed MD CHEMISTRY ORDERABLES Performing Organization Address City/[facility]/ZIP Co de Phone Number CHI MONTANOIUM [...] Reed MD CHEMISTRY ORDERABLES Performing Organization Address [facility] de Phone Number CHI SALAZAR * (ABNORMAL) APTT (04/15/2013 4:53 AM EDT) Partial Thromboplastin Time 62(H) 25 - 35 sec [facility] Comment: Recommended therapeutic PTT range for full dose unfractionated heparin is 80-114 seconds. Blood specimen (specimen) 04/15/2013 4:53 AM EDT 04/15/2013 5:33 AM EDT Narrative Resulting Agency Comment Spec In Lab Tavon Reed MD HEMATOLOGY ORDERABLE S Performing Organization Address [facility] Phone Number CHI SALAZAR * [...] International Normalization Ratio 0.9 0.9 - 1.1 [facility] MILL[facility] Blood specimen (specimen) 04/15/2013 4:53 AM EDT 04/15/2013 5:33 AM EDT Narrative Resulting Agency Comment Spec In Lab Tavon Reed MD HEMATOLOGY ORDERABLE S Performing Organization Address [facility] Co de Phone Number CHI SALAZAR [...] MD HEMATOLOGY ORDERABLE S Performing Organization Address [facility] Phone Number [facility] * APTT (04/14/2013 11:55 PM EDT) Partial Thromboplastin Time 28 25 - 35 sec [facility] Comment: Recommended therapeutic PTT range for full dose unfractionated heparin is 80-114 seconds. Blood specimen (specimen) 04/14/2013 11:55 PM EDT 04/15/2013 12:07 AM EDT Narrative Resulting Agency Comment Spec In Lab Tavon Reed MD HEMATOLOGY ORDERABLE S Performing Organization Address [facility] Phone Number [facility] * EKG 12 Lead (04/14/2013 10:59 PM EDT) Ventricular rate 65 BPM MUSE SYSTEM Atrial Rate 65 BPM MUSE SYSTEM P-R Interval 134 ms MUSE SYSTEM QRS Duration 86 ms MUSE SYSTEM Q-T Interval 424 ms MUSE SYSTEM QTC Calculated (Bezet) 440 ms MUSE SYSTEM Calculated P [place] 26 degrees MUSE SYSTEM Calculated R [place] 17 degrees MUSE SYSTEM Calculated T [place] 36 degrees MUSE SYSTEM INTERPRETATION Normal sinus rhythm with sinus arrhythmia T wave abnormality, consider anterior ischemia Abnormal ECG When compared with ECG of 14-APR-2013 22:57, (unconfirmed) No significant change was found Confirmed by MD NGHIA, JENNY ([id number]) on 04/16/2013 11:34:39 AM MUSE SYSTEM 04/14/2013 10:5 9 PM EDT 04/16/2013 11:34 AM EDT Tavon Reed MD ECG ORDERABLES Performing Organization Address [facility] Phone Number MUSE SYSTEM * EKG 12 Lead (04/14/2013 10:57 PM EDT) Ventricular rate 56 BPM MUSE SYSTEM Atrial Rate 56 BPM MUSE SYSTEM P-R Interval 144 ms MUSE SYSTEM QRS Duration 84 ms MUSE SYSTEM Q-T Interval 430 ms MUSE SYSTEM QTC Calculated (Bezet) 414 ms MUSE SYSTEM Calculated P [place] 25 degrees MUSE SYSTEM Calculated R [place] 22 degrees MUSE SYSTEM Calculated T [place] 41 degrees MUSE SYSTEM INTERPRETATION Sinus bradycardia with Sinus arrhythmia T wave abnormality, consider anterolateral ischemia Abnormal ECG Confirmed by MD AGRAWAL MARK ([id number]) on 04/16/2013 11:34:11 AM MUSE SYSTEM 04/14/2013 10:5 7 PM EDT 04/16/2013 11:34 AM EDT Tavon Reed MD ECG ORDERABLES Performing Organization Address [facility] de Phone Number MUSE SYSTEM * EKG 12 Lead (04/14/2013 10:56 PM EDT) Ventricular rate 53 BPM MUSE SYSTEM Atrial Rate 53 BPM MUSE SYSTEM P-R Interval 142 ms MUSE SYSTEM QRS Duration 74 ms MUSE SYSTEM Q-T Interval 420 ms MUSE SYSTEM QTC Calculated (Bezet) 394 ms MUSE SYSTEM Calculated P [place] 32 degrees MUSE SYSTEM Calculated R [place] 22 degrees MUSE SYSTEM Calculated T [place] 39 degrees MUSE SYSTEM INTERPRETATION Sinus bradycardia Sinus arrhythmia T wave abnormality, consider anterolateral ischemia Abnormal ECG Confirmed by MD AGRAWAL MARK ([id number]) on 04/16/2013 11:33:23 AM MUSE SYSTEM 04/14/2013 10:5 6 PM EDT 04/16/2013 11:33 AM EDT Freddy Mejias MD ECG ORDERABLES Performing Organization Address City/[facility] Co de Phone Number MUSE SYSTEM * POCT urine (04/14/2013 10:41 PM EDT) POC Urine HCG Negative Negative - Negative POC Control Internal Controls Acceptable Tavon Reed MD POINT OF CARE TEST O RDERABLES * POCT urine dipstick (04/14/2013 10:41 PM EDT) POC Sp [place] 1.010 1.002 - 1.030 POC pH, UA [...] MD HEMATOLOGY ORDERABLE S Performing Organization Address [facility]/ZIP Co de Phone Number CHI MONTANOIUM [...] MD HEMATOLOGY ORDERABLE S Performing Organization Address [facility] de Phone Number CHI SALAZAR * Cardiac Enzymes (04/14/2013 9:10 PM EDT) Troponin-T <0.03 <=0.03 ng/mL [facility] Comment: 0.03 ng/mL: Represents the 99th percentile upper reference limit for normals. >0.03 ng/mL: Elevated cardiac troponin T level indicative of myocardial damage. Diagnosis of acute, evolving or recent MO requires a typical rise and gradual fall [...] consensus document of the Joint Society of Cardiology/[place] College of Cardiology Committee for the redefinition of myocardial infarction. Journal of the [place] College of Cardiology 2000; 36: 959-969] Creatine Kinase 49 0 - 160 unit/L CHI MONTANOIUM Blood specimen (specimen) 04/14/2013 9:10 PM EDT 04/14/2013 9:14 PM EDT Narrative Resulting Agency Comment Spec In Lab Tavon Reed MD CHEMISTRY ORDERABLES Performing Organization Address [facility] de Phone Number CHI SALAZAR * Glucose, random (04/14/2013 9:10 PM EDT) Glucose 114 60 - 199 mg/dL CHI SALAZAR Comment:Diabetes: >=200 mg/d L plus symptoms Blood specimen (specimen) 04/14/2013 9:10 PM EDT 04/14/2013 9:14 PM EDT Narrative Resulting Agency Comment Spec In Lab Tavon Reed MD CHEMISTRY ORDERABLES Performing Organization Address [facility] Co de Phone Number CHI SALAZAR * Creatinine (04/14/2013 9:10 PM EDT) Creatinine 0.78 0.70 - 1.20 mg/dL [facility] Comment: Please note that the pediatric reference intervals supplied above were not validated at [facility]. Results from pediatric patients should be interpreted in conjunction to the patient's age, height and muscle mass. Est Glomerular Filtration Rate >60 >=60 [facility] Comment: This estimated GFR (eGFR) value was [...] Reed MD CHEMISTRY ORDERABLES Performing Organization Address [facility] Co de Phone Number CHI SALAZAR * BUN (04/14/2013 9:10 PM EDT) Blood Urea Nitrogen 16 8 - 18 mg/dL [facility] Blood specimen (specimen) 04/14/2013 9:10 PM EDT 04/14/2013 9:14 PM EDT Narrative Resulting Agency Comment Spec In Lab Tavon Reed MD CHEMISTRY ORDERABLES Performing Organization Address [facility] de Phone Number CERNER MILLENNIUM * [...] Reed MD CHEMISTRY ORDERABLES Performing Organization Address [facility] de Phone Number CERNER MILLENNIUM * EKG 12 Lead (04/14/2013 8:57 PM EDT) Ventricular rate 67 BPM MUSE SYSTEM Atrial Rate 67 BPM MUSE SYSTEM P-R Interval 140 ms MUSE SYSTEM QRS Duration 72 ms MUSE SYSTEM Q-T Interval 372 ms MUSE SYSTEM QTC Calculated (Bezet) 393 ms MUSE SYSTEM Calculated P [place] 44 degrees MUSE SYSTEM Calculated R [place] 36 degrees MUSE SYSTEM Calculated T [place] 48 degrees MUSE SYSTEM INTERPRETATION Sinus rhythm with Premature atrial complexes ST & T wave abnormality, consider anterior ischemia Abnormal ECG When compared with ECG of 09-APR-2013 14:24, Premature atrial complexes are now Present Confirmed by MD NGHIA, JENNY ([id number]) on 04/16/2013 11:04:11 AM MUSE SYSTEM 04/14/2013 8:57 PM EDT 04/16/2013 11:04 AM EDT Freddy Mejias MD ECG ORDERABLES Performing Organization Address [facility] Co de Phone Number MUSE SYSTEM documented in this encounter Visit Diagnoses Not on filedocumented in this encounter Administered Medications Inactive Administered Medications - up to 3 most recent administrations Medication Order MAR Action Action Date Dose Rate Site bivalirudin (ANGIOMAX) 250 mg in sodium chloride 0.9% 50 mL infusion (LAW FIRM PARTNER) CONTINUOUS PRN, Starting on Tue04/16/13 at 1054, [...] Provider: Tegan August RN)1345 (Given - Provider: oRcio Garrison RN) 0145 (Given - Provider: Katerine [...] than 145 sec X 2 - call joss house keeper See Bolus dosing guidance for aPTT values [...] in sodium chloride 0.9% 50 mL infusion ([employer]W [employer]NER) (CANCELED) CONTINUOUS PRN, Starting on Tue04/16/13 at [...] Patch documented in this encounter Care Teams Correctional Maintenance Technician Relationship Specialty Start Date End Date Adriana Perla APRN [address] [place] [address] PCP - General 06/16/10 06/27/18 documented as of this encounter
--- OUTSIDE RECORDS SUMMARY | 2024-08-15 13:39 | XMS_ITS | Encounter Summary ---
Author Organization [facility] [place] [address] Care Team Providers Care Regional Vice President Life Sales Name Role Phone Aman Lawrence APRN Primary Care Provider +1 [phone] Encounter Details Date Type Department Care Team (Late st Contact Info) Description 09/23/2010 7:00 AM EST Office [place] [address] CLINIC, Aman Steele APRN [address] [place] [address] Bong Cabrera MD Bryce, Lydia R Social [...] filedocumented in this encounter Care Teams Regional Vice President Life Sales Relationship Specialty Start Date End Date Aman Lawrence APRN [address] [place] [address] PCP - General 06/16/10 06/27/18 documented as of this encounter
--- OUTSIDE RECORDS SUMMARY | 2024-08-15 13:39 | XMS_ITS | Encounter Summary ---
Author Organization [facility] [place] [address] Care Team Providers Care Timber Deadener Name Role Phone Aman Lawrence APRN Primary Care Provider +1 -[phone] Encounter Details Date Type Department Care Team (Late st Contact Info) Description 08/14/2010 8:00 AM EST Office Visit Functional Scientology Program [place] [address] Tawnya Allison Social History Tobacco Use Types [...] on filedocumented in this encounter Care Teams Timber Deadener Relationship Specialty Start Date End [place] [address] PCP - General 06/16/10 06/27/18 documented as of this encounter
--- OUTSIDE RECORDS SUMMARY | 2024-08-15 13:39 | XMS_ITS | Encounter Summary ---
Author Organization [facility] [place] [address] Care Team Providers Care Jigsaw Operator Name Role Phone Yisel Marroquin MD Primary Care Provider Unavail able Encounter Details Date Type Department Care Team (Late st Contact Info) Description 10/11/2011 Orders Only Radiology and Cardiology Results [address] [place] [address] Apd Conversion, Results Provider, Social [...] on filedocumented in this encounter Care Teams Jigsaw Operator Relationship Specialty Start Date End Date Yisel Marroquin MD PCP - General 11/13/18 03/05/19 documented as of this encounter
--- OUTSIDE RECORDS SUMMARY | 2024-08-15 13:39 | XMS_ITS | Encounter Summary ---
Author Organization [facility] [place] [address] Care Team Providers Care Sewing Machine Assembler Name Role Phone Aman Lawrence APRN Primary Care Provider +1 -[phone] Encounter Details Date Type Department Care Team (Late st Contact Info) Description 08/11/2010 2:30 PM EST Office Visit Functional [facility] Program [place] [address] Bong Cabrera MD Social History Tobacco Use [...] Assembler Relationship Specialty Start Date End [place] [address] PCP - General 06/16/10 06/27/18 documented as of this encounter
--- OUTSIDE RECORDS SUMMARY | 2024-08-15 13:39 | XMS_ITS | Encounter Summary ---
Author Organization [facility] [place] [address] Care Team Providers Care Fence Rider Name Role Phone Aman Lawrence APRN Primary Care Provider +1 -[phone] Encounter Details Date Type Department Care Team (Late st Contact Info) Description 12/04/2010 Surgery [place] [address] Kasia Crouch MD [facility] [place] [address] UPPER GI ENDOSCOPY Social History Tobacco Use [...] vitamins (B COMPLEX-VITAMIN B12) tablet 09/23/2010 11/19/2016 zvtehuswhpoo-xvlo-jmug rals (COMPLETE MULTIVITAMIN) Tab tablet 1 Tablet(s), PO, Once daily 09/23/2010 11/19/2016 calcium citrate-vitamin D (CITRACAL+D) 315-200 mg-unit per tablet 2 Tablet(s), PO, Twice daily 09/23/2010 11/19/2016 ergocalciferol (VITAMIN D) 50,000 unit capsule [id number], PO, TWICE a week 09/23/2010 11/19/2016 documented [...] RN) documented in this encounter Care Teams Fence Rider Relationship Specialty Start Date End Date Aman Lawrence APRN [address] [place] [address] PCP - General 06/16/10 06/27/18 documented as of this encounter
--- OUTSIDE RECORDS SUMMARY | 2024-08-15 13:39 | XMS_ITS | Encounter Summary ---
Author Organization [facility] Address [facility] [place] [address] Care Team Providers Care Public Policy Mediator Name Role Phone Aman Lawrence APRN Primary Care Provider +1 [phone] Encounter Details Date Type Department Care Team (Latest Contact Info) Description 08/24/2010 7:32 AM EST - 08/24/2010 11:59 PM EST Hospital Encounter XRay at [address] [place] [address] Skinny Gomez MD Discharge Disposition: Home Social [...] filedocumented in this encounter Care Teams Public Policy Mediator Relationship Specialty Start Date [place] [address] PCP - General 06/16/10 06/27/18 documented as of this encounter
--- OUTSIDE RECORDS SUMMARY | 2024-08-15 13:39 | XMS_ITS | Encounter Summary ---
[place] [address] Care Team Providers Care Doper Operator Name Role Phone Yisel Marroquin MD Primary Care Provider Unavail able Encounter Details Date Type Department Care Team (Late st Contact Info) Description 11/14/2012 Orders Only Radiology and Cardiology Results [address] [place] [address] Apd Conversion, Results Provider, Social [...] Provider Apd Conversion MD JASON ESTRELLA ORDERABLES OKRI GARCIA CONVERSION documented in this encounter Visit Diagnoses Not on filedocumented in this encounter Care Teams Doper Operator Relationship Specialty Start Date End Date Yisel Marroquin MD PCP - General 11/13/18 03/05/19 documented as of this encounter
--- OUTSIDE RECORDS SUMMARY | 2024-08-15 13:39 | XMS_ITS | Encounter Summary ---
Author Organization [facility] [place] [address] Care Team Providers Care Rn Wellness Name Role Phone Aman Lawrence APRN Primary Care Provider +1 -[phone] Encounter Details Date Type Department Care Team (Late st Contact Info) Description 01/18/2011 Abstract [place] [address] Bong Cabrera MD Social History Tobacco Use [...] filedocumented in this encounter Care Teams Rn Wellness Relationship Specialty Start Date [place] [address] PCP - General 06/16/10 06/27/18 documented as of this encounter
--- OUTSIDE RECORDS SUMMARY | 2024-08-15 13:39 | XMS_ITS | Encounter Summary ---
[place] [address] Care Team Providers Care Food Sales Clerk Name Role Phone Aman Lawrence APRN Primary Care Provider +1 -[phone] Reason for Visit * Reason Comments Obesity Encounter Details Date Type Department Care Team (Late st Contact Info) Description 11/11/2010 9:00 AM EDT [place] [id number] Sidra Del Toro APRN Bariatric surgery status; [...] Toro T - 11/11/2010 9:20 AM EDT [facility] Admin coordinator Rhonda: [phone] Dietitians: [phone] Surgeons/ nurse practitioner: [phone] Nurse line: [phone] Follow up: will discuss after your upper endoscopy Testing: Labwork: today Please note that labwork results from non-[facility] labs take longer to get results. Please remind the sanitation laborer that certain test tubes need to [...] Park in the Parking Garage. 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 Iflabwork is done by the primary customer care assistant: please send a copy to the Bariatric Surgery Program,General Surgery Clinic, [facility], attention Sidra Del Toro APRN. Plastic Surgery Clinic evaluation for skin redundancy: done no sooner than 18 months post-operatively when weight loss has been stable for a few months. In general, patients with a BMI >30-35 are not considered candidates due to increased risk of complications unless there are compelling health concerns. Questions regarding [facility] Bariatric Surgery Program patients: please call Jorge Del Toro APRN at [phone] or [phone] beeper [phone]. documented in this encounter Plan of Treatment [...] deficiency documented in this encounter Care Teams Food Sales Clerk Relationship Specialty Start Date End Date Aman Lawrence APRN [address] [place] [address] PCP - General 06/16/10 06/27/18 documented as of this encounter
--- OUTSIDE RECORDS SUMMARY | 2024-08-15 13:39 | XMS_ITS | Encounter Summary ---
[place] [address] Care Team Providers Care Chemical Equipment Controller Name Role Phone Yisel Marroquin MD Primary Care Provider Unavail able Encounter Details Date Type Department Care Team (Late st Contact Info) Description 03/08/2012 Orders Only Radiology and Cardiology Results [address] [place] [address] Apd Conversion, Results Provider, Social [...] filedocumented in this encounter Care Teams Chemical Equipment Controller Relationship Specialty Start Date End Date Yisel Marroquin MD PCP - General 11/13/18 03/05/19 documented as of this encounter
--- OUTSIDE RECORDS SUMMARY | 2024-08-15 13:40 | XMS_ITS | Encounter Summary ---
Author Organization [facility] Address [facility] [place] [address] Care Team Providers Care Professor Of Philosophy Name Role Phone Yisel Marroquin MD Primary Care Provider Unavail able Encounter Details Date Type Department Care Team (Late st Contact Info) Description 05/19/2009 Interpretation Only Radiology [address] [facility] [place] [address] Unknown None Social History Tobacco Use Types [...] 10:20 AM EDT APD Historical Result Principal Consultant Dietitian: ??TEGAN ?MACHELLE MR OF THE CERVICAL SPINE: [...] the annulus fibrosus. Tegan Lynch MD KG/ma [id number] CC: Procedure Note Unknown - 01/22/2019 APD Historical Result Principal Consultant Dietitian: TEGAN LYNCH MR OF THE CERVICAL SPINE: At 1.5 raz, multiplanar imaging is obtained through the cervical spineutilizing both short and long TR pulse sequences. Examination is performed in a 83-teps-quibvpyjq with neck pain and bilateral arm tingling. [...] of the annulusfibrosus. Tegan Lynch MD KG/ma [id number] CC: Unknown IMG MRI ORDERABLES documented in this encounter Visit Diagnoses Not on filedocumented in this encounter Care Teams Professor Of Philosophy Relationship Specialty Start Date End Date Yisel Marroquin MD PCP - General 11/13/18 03/05/19 documented as of this encounter
--- OUTSIDE RECORDS SUMMARY | 2024-08-15 13:40 | XMS_ITS | Encounter Summary ---
Author Organization [facility] [place] [address] Care Team Providers Care Workforce Management Coordinator Name Role Phone Aman Lawrence APRN Primary Care Provider +1 [phone] Encounter Details Date Type Department Care Team (Late st Contact Info) Description 08/07/2010 2:30 PM EST Office Visit Functional Holiness Program [place] [address] Caroline Hugo INFORMATION SYSTEMS SECURITY ANALYST [facility] [place] [address] Social History Tobacco Use Types Packs/Day Years Used Date Smoking Tobacco: Never Assessed Sex and Gender Information Value Date Recorded Sex Assigned at Not on file Gender Identity Not on file Sexual Orientation Not on file documented as of this encounter Plan of Treatment Not on file documented as of this encounter Visit Diagnoses Not on filedocumented in this encounter Care Teams Workforce Management Coordinator Relationship Specialty Start Date End Date Aman Lawrence APRN [address] [address] PCP - General 06/16/10 06/27/18 documented as of this encounter
--- OUTSIDE RECORDS SUMMARY | 2024-08-15 13:40 | XMS_ITS | Encounter Summary ---
Author Organization [facility] [place] [address] Care Team Providers Care Research Group Director Name Role Phone Aman Lawrence APRN Primary Care Provider +1 [phone] Encounter Details Date Type Department Care Team (Late st Contact Info) Description 08/04/2010 7:55 AM EST Office Visit Functional Amish Program [place] [address] Ananth Sesay, PT Social History Tobacco Use [...] filedocumented in this encounter Care Teams Research Group Director Relationship Specialty Start Date End Date Aman [place] [address] PCP - General 06/16/10 06/27/18 documented as of this encounter
--- OUTSIDE RECORDS SUMMARY | 2024-08-15 13:40 | XMS_ITS | Encounter Summary ---
Author Organization [facility] [place] [address] Care Team Providers Care Hospice Coordinator Name Role Phone Yisel Marroquin MD Primary Care Provider Unavail able Encounter Details Date Type Department Care Team (Late st Contact Info) Description 11/03/2007 Orders Only Radiology and Cardiology Results [address] [place] [address] Apd Conversion, Results Provider, Social [...] on filedocumented in this encounter Care Teams Hospice Coordinator Relationship Specialty Start Date End Date Yisel Marroquin MD PCP - General General Internal Medicine 03/06/19 0 documented as of this encounter
--- OUTSIDE RECORDS SUMMARY | 2024-08-15 13:40 | XMS_ITS | Encounter Summary ---
Author Organization [facility] [place] [address] Care Team Providers Care Dispenser Operator Name Role Phone Aman Lawrence APRN Primary Care Provider +1 -[phone] Encounter Details Date Type Department Care Team (Late st Contact Info) Description 07/08/2010 8:00 AM EST Follow-[place] [address] CLINIC, Aman Steele APRN [address] [place] [address] Bong Cabrera MD Bryce, Lydia R Discharge [...] on filedocumented in this encounter Care Teams Dispenser Operator Relationship Specialty Start Date End Date Aman Lawrence APRN [address] [place] [address] PCP - General 06/16/10 06/27/18 documented as of this encounter
--- OUTSIDE RECORDS SUMMARY | 2024-08-15 13:40 | XMS_ITS | Encounter Summary ---
Author Organization [facility], Located Within [facility] [place] [address] Care Team Providers Care Medical Translator Name Role Phone Aman Lawrence APRN Primary Care Provider +1 -[phone] Encounter Details Date Type Department Care Team (Late st Contact Info) Description 08/06/2010 11:00 AM EST Follow[place] [id number] Social History Tobacco Use Types Packs/Day Years Used Date Smoking Tobacco: Never Assessed Sex and Gender Information Value Date Recorded Sex Assigned at Not on file Gender Identity Not on file Sexual Orientation Not on file documented as of this encounter Plan of Treatment Not on file documented as of this encounter Visit Diagnoses Not on filedocumented in this encounter Care Teams Medical Translator Relationship Specialty Start Date End Date Aman Lawrence [place] [address] PCP - General 06/16/10 06/27/18 documented as of this encounter
--- OUTSIDE RECORDS SUMMARY | 2024-08-15 13:40 | XMS_ITS | Encounter Summary ---
Author Organization [facility] [place] [address] Care Team Providers Care Senior Statistical Programmer Name Role Phone Aman Lawrence APRN Primary Care Provider +1 -[phone] Encounter Details Date Type Department Care Team (Late st Contact Info) Description 08/03/2010 7:55 AM EST Office Visit Functional Sikh Program [place] [address] Ananth Sesay, PT Social History Tobacco Use [...] filedocumented in this encounter Care Teams Senior Statistical Programmer Relationship Specialty Start Date End Date Aman Lawrence [place] [address] PCP - General 06/16/10 06/27/18 documented as of this encounter
--- OUTSIDE RECORDS SUMMARY | 2024-08-15 13:40 | XMS_ITS | Encounter Summary ---
Author Organization [facility] [place] [address] Care Team Providers Care Lithographic Proofer Name Role Phone Aman Lawrence APRN Primary Care Provider +1 -[phone] Encounter Details Date Type Department Care Team (Late st Contact Info) Description 08/10/2010 9:00 AM EST Office Visit Functional Zoroastrian Program [place] [address] Tawnya Allison Social History Tobacco Use Types [...] on filedocumented in this encounter Care Teams Lithographic Proofer Relationship Specialty Start Date End [place] [address] PCP - General 06/16/10 06/27/18 documented as of this encounter
--- OUTSIDE RECORDS SUMMARY | 2024-08-15 13:40 | XMS_ITS | Encounter Summary ---
Author Organization [facility] [place] [address] Care Team Providers Care Record Filing Clerk Name Role Phone Aman Lawrence APRN Primary Care Provider +1 -[phone] Encounter Details Date Type Department Care Team (Late st Contact Info) Description 07/29/2010 9:00 AM EST Office Visit Functional Zoroastrianism Program [place] [address] Tawnya Allison Social History Tobacco Use Types [...] on filedocumented in this encounter Care Teams Record Filing Clerk Relationship Specialty Start Date End [place] [address] PCP - General 06/16/10 06/27/18 documented as of this encounter
--- OUTSIDE RECORDS SUMMARY | 2024-08-15 13:40 | XMS_ITS | Encounter Summary ---
Author Organization [facility] [place] [address] Care Team Providers Care Histology Aide Name Role Phone Aman Lawrence APRN Primary Care Provider +1 -[phone] Encounter Details Date Type Department Care Team (Late st Contact Info) Description 06/23/2010 1:00 PM EST Follow-[place] [address] Dhruv Walker, PA Social History Tobacco Use [...] on filedocumented in this encounter Care Teams Histology Aide Relationship Specialty Start Date End Date Aman Lawrence [place] [address] PCP - General 06/16/10 06/27/18 documented as of this encounter
--- OUTSIDE RECORDS SUMMARY | 2024-08-15 13:40 | XMS_ITS | Encounter Summary ---
Author Organization [facility] [place] [address] Care Team Providers Care Sheet Roller Operator Name Role Phone Aman Lawrence APRN Primary Care Provider +1 -[phone] Encounter Details Date Type Department Care Team (Latest Contact Info) Description 07/28/2010 8:45 AM EST Procedure [place] [address] Bong Cabrera MD Discharge Disposition: Home Social [...] on filedocumented in this encounter Care Teams Sheet Roller Operator Relationship Specialty Start Date End Date Aman Lawrence [place] [address] PCP - General 06/16/10 06/27/18 documented as of this encounter
--- OUTSIDE RECORDS SUMMARY | 2024-08-15 13:40 | XMS_ITS | Encounter Summary ---
Author Organization [facility] [place] [address] Care Team Providers Care Cuff Maker Name Role Phone Aman Lawrence APRN Primary Care Provider +1 -[phone] Encounter Details Date Type Department Care Team (Late st Contact Info) Description 07/30/2010 7:55 AM EST Office Visit Functional Scientologist Program [place] [address] Ananth Sesay, PT Social History Tobacco Use [...] on filedocumented in this encounter Care Teams Cuff Maker Relationship Specialty Start Date End Date Aman Lawrence [place] [address] PCP - General 06/16/10 06/27/18 documented as of this encounter
--- OUTSIDE RECORDS SUMMARY | 2024-08-15 13:40 | XMS_ITS | Encounter Summary ---
Author Organization [facility] [place] [address] Care Team Providers Care Card Lacer Jacquard Name Role Phone Aman Lawrence APRN Primary Care Provider +1 -[phone] Encounter Details Date Type Department Care Team (Late st Contact Info) Description 07/31/2010 7:55 AM EST Office Visit Functional Anabaptist Program [place] [address] Ananth Sesay, PT Social History Tobacco Use [...] on filedocumented in this encounter Care Teams Card Lacer Jacquard Relationship Specialty Start Date End Date Aman Lawrence [place] [id number] PCP - General 06/16/10 06/27/18 documented as of this encounter
--- OUTSIDE RECORDS SUMMARY | 2024-08-15 13:40 | XMS_ITS | Encounter Summary ---
Author Organization [facility] [place] [address] Care Team Providers Care Automatic Bow Maker Machine Tender Name Role Phone Yisel Marroquin MD Primary Care Provider Unavail able Encounter Details Date Type Department Care Team (Late st Contact Info) Description 11/03/2007 Orders Only Radiology and Cardiology Results [address] [place] [address] Apd Conversion, Results Provider, Social [...] filedocumented in this encounter Care Teams Automatic Bow Maker Machine Tender Relationship Specialty Start Date End Date Yisel Marroquin MD PCP - General General Internal Medicine 03/06/19 0 documented as of this encounter
--- OUTSIDE RECORDS SUMMARY | 2024-08-15 13:40 | XMS_ITS | Encounter Summary ---
Author Organization [facility] [place] [address] Care Team Providers Care Product Development Specialist Name Role Phone Aman Lawrence APRN Primary Care Provider +1 -[phone] Encounter Details Date Type Department Care Team (Late st Contact Info) Description 07/28/2010 7:45 AM EST Office Visit Functional Tenriism Program [place] [address] Tawnya Allison Social History Tobacco Use Types [...] in this encounter Care Teams Product Development Specialist Relationship Specialty Start Date End [place] [address] PCP - General 06/16/10 06/27/18 documented as of this encounter
--- OUTSIDE RECORDS SUMMARY | 2024-08-15 13:40 | XMS_ITS | Encounter Summary ---
Author Organization [facility] [place] [address] Care Team Providers Care Public Health Advisor Name Role Phone Aman Lawrence APRN Primary Care Provider +1 -[phone] Encounter Details Date Type Department Care Team (Late st Contact Info) Description 08/05/2010 7:55 AM EST Office Visit Functional Evangelical Program [place] [address] Ananth Sesay, PT Social History Tobacco Use [...] in this encounter Care Teams Public Health Advisor Relationship Specialty Start Date End Date Aman Lawrence [place] [address] PCP - General 06/16/10 06/27/18 documented as of this encounter
--- OUTSIDE RECORDS SUMMARY | 2024-08-15 13:40 | XMS_ITS | Encounter Summary ---
[place] [address] Care Team Providers Care Medical Office Technology Instructor Name Role Phone Unavailable Primary Care Provider Unavailabl e Encounter Details Date Type Department Care Team (Late st Contact Info) Description 05/28/2010 2:00 PM EDT Office [place] [address] Anabell Simpson, PT Social History Tobacco Use [...]
--- OUTSIDE RECORDS SUMMARY | 2024-08-15 13:40 | XMS_ITS | Encounter Summary ---
Author Organization [facility] [place] [address] Care Team Providers Care Studio Operation Engineer Name Role Phone Aman Lawrence APRN Primary Care Provider +1 -[phone] Encounter Details Date Type Department Care Team (Late st Contact Info) Description 07/08/2010 9:00 AM EST Office [place] [address] Bong Cabrera MD Discharge Disposition: Home Social [...] filedocumented in this encounter Care Teams Studio Operation Engineer Relationship Specialty Start Date End Date Aman Lawrence [place] [address] PCP - General 06/16/10 06/27/18 documented as of this encounter
--- OUTSIDE RECORDS SUMMARY | 2024-08-15 13:40 | XMS_ITS | Encounter Summary ---
Author Organization [facility] [place] [address] Care Team Providers Care Control Clerk Name Role Phone Aman Lawrence APRN Primary Care Provider +1 -[phone] Encounter Details Date Type Department Care Team (Late st Contact Info) Description 08/10/2010 7:55 AM EST Office Visit Functional Scientologist Program [place] [address] Ananth Sesay, PT Social History Tobacco Use [...] filedocumented in this encounter Care Teams Control Clerk Relationship Specialty Start Date End Date Aman Lawrence [place] [address] PCP - General 06/16/10 06/27/18 documented as of this encounter
--- OUTSIDE RECORDS SUMMARY | 2024-08-15 13:40 | XMS_ITS | Encounter Summary ---
Author Organization [facility] [place] [address] Care Team Providers Care Maintenance Aide Name Role Phone Aman Lawrence APRN Primary Care Provider +1 -[phone] Encounter Details Date Type Department Care Team (Late st Contact Info) Description 07/13/2010 9:00 AM EST [place] [address] Ana Goins, [facility] [address] Social History Tobacco Use Types Packs/Day Years Used Date Smoking Tobacco: Never Assessed Sex and Gender Information Value Date Recorded Sex Assigned at Not on file Gender Identity Not on file Sexual Orientation Not on file documented as of this encounter Plan of Treatment Not on file documented as of this encounter Visit Diagnoses Not on filedocumented in this encounter Care Teams Maintenance Aide Relationship Specialty Start Date End Date Aman Lawrence APR[place] [address] PCP - General 06/16/10 06/27/18 documented as of this encounter
--- OUTSIDE RECORDS SUMMARY | 2024-08-15 13:40 | XMS_ITS | Encounter Summary ---
Author Organization [facility] [place] [address] Care Team Providers Care Dam Worker Name Role Phone Aman Lawrence APRN Primary Care Provider +1 -[phone] Encounter Details Date Type Department Care Team (Late st Contact Info) Description 08/03/2010 2:30 PM EST Office Visit Functional Oriental Orthodox Program [place] [address] Caroline Hugo [facility] [place] [address] Social History Tobacco Use Types Packs/Day Years Used Date Smoking Tobacco: Never Assessed Sex and Gender Information Value Date Recorded Sex Assigned at Not on file Gender Identity Not on file Sexual Orientation Not on file documented as of this encounter Plan of Treatment Not on file documented as of this encounter Visit Diagnoses Not on filedocumented in this encounter Care Teams Dam Worker Relationship Specialty Start Date End Date Aman Lawrence APRN [address] [place] [address] PCP - General 06/16/10 06/27/18 documented as of this encounter
--- OUTSIDE RECORDS SUMMARY | 2024-08-15 13:40 | XMS_ITS | Encounter Summary ---
Author Organization [facility] [place] [address] Care Team Providers Care Pearl Maker Name Role Phone Yisel Marroquin MD Primary Care Provider Unavail able Encounter Details Date Type Department Care Team (Late st Contact Info) Description 08/17/2005 Orders Only Radiology and Cardiology Results [address] [place] [address] Apd Conversion, Results Provider, Social [...] filedocumented in this encounter Care Teams Pearl Maker Relationship Specialty Start Date End Date Yisel Marroquin MD PCP - General General Internal Medicine 03/06/19 0 documented as of this encounter
--- OUTSIDE RECORDS SUMMARY | 2024-08-15 13:40 | XMS_ITS | Encounter Summary ---
Author Organization [facility] [place] [address] Care Team Providers Care Riding Teacher Name Role Phone Aman Lawrence APRN Primary Care Provider +1 -[phone] Encounter Details Date Type Department Care Team (Late st Contact Info) Description 07/13/2010 8:00 AM EST Office [place] [address] Tawnya Allison Social History Tobacco Use Types [...] filedocumented in this encounter Care Teams Riding Teacher Relationship Specialty Start Date End Date [place] [address] PCP - General 06/16/10 06/27/18 documented as of this encounter
--- OUTSIDE RECORDS SUMMARY | 2024-08-15 13:40 | XMS_ITS | Encounter Summary ---
Author Organization [facility] [address] Care Team Providers Care Beverage Server Name Role Phone Aman Lawrence APRN Primary Care Provider +1 -[phone] Encounter Details Date Type Department Care Team (Late st Contact Info) Description 07/31/2010 9:00 AM EST Office Visit Functional Yazidism Program [place] [address] Tawnya Allison Social History Tobacco Use Types [...] on filedocumented in this encounter Care Teams Beverage Server Relationship Specialty Start Date End [place] [address] PCP - General 06/16/10 06/27/18 documented as of this encounter
--- OUTSIDE RECORDS SUMMARY | 2024-08-15 13:40 | XMS_ITS | Encounter Summary ---
Author Organization [facility] [place] [address] Care Team Providers Care Swage Toolsetter Name Role Phone Aman Lawrence APRN Primary Care Provider +1 -[phone] Encounter Details Date Type Department Care Team (Late st Contact Info) Description 08/07/2010 9:00 AM EST Office Visit Functional Baptist Program [place] [address] Tawnya Allison Social History Tobacco Use Types [...] on filedocumented in this encounter Care Teams Swage Toolsetter Relationship Specialty Start Date End [place] [address] PCP - General 06/16/10 06/27/18 documented as of this encounter
--- OUTSIDE RECORDS SUMMARY | 2024-08-15 13:40 | XMS_ITS | Encounter Summary ---
Author Organization [facility] [place] [address] Care Team Providers Care Rehabilitation Therapy Aide Name Role Phone Aman Lawrence APRN Primary Care Provider +1 -[phone] Encounter Details Date Type Department Care Team (Late st Contact Info) Description 07/30/2010 2:30 PM EST Office Visit Functional Mormon Program [place] [address] Bong Cabrera MD Social History Tobacco Use [...] filedocumented in this encounter Care Teams Rehabilitation Therapy Aide Relationship Specialty Start Date End [place] [address] PCP - General 06/16/10 06/27/18 documented as of this encounter
--- OUTSIDE RECORDS SUMMARY | 2024-08-15 13:40 | XMS_ITS | Encounter Summary ---
Author Organization [facility] [place] [address] Care Team Providers Care Returner Name Role Phone Aman Lawrence APRN Primary Care Provider +1 -[phone] Encounter Details Date Type Department Care Team (Late st Contact Info) Description 07/28/2010 7:45 AM EST Office Visit Functional Methodist Program [place] [address] Ananth Sesay M, PT Unknown None Discharge [...] on filedocumented in this encounter Care Teams Returner Relationship Specialty Start Date End Date Aman Lawrence [place] [address] PCP - General 06/16/10 06/27/18 documented as of this encounter
--- OUTSIDE RECORDS SUMMARY | 2024-08-15 13:40 | XMS_ITS | Encounter Summary ---
Author Organization [facility] [place] [address] Care Team Providers Care Associate Spa Director Name Role Phone Aman Lawrence APRN Primary Care Provider +1 -[phone] Encounter Details Date Type Department Care Team (Late st Contact Info) Description 08/03/2010 8:00 AM EST Office Visit Functional Restorationist Program [place] [address] Tawnya Allison Social History Tobacco Use Types [...] filedocumented in this encounter Care Teams Associate Spa Director Relationship Specialty Start Date End [place] [address] PCP - General 06/16/10 06/27/18 documented as of this encounter
--- OUTSIDE RECORDS SUMMARY | 2024-08-15 13:40 | XMS_ITS | Encounter Summary ---
Author Organization [facility] [address] Care Team Providers Care Salon Supervisor Name Role Phone Aman Lawrence APRN Primary Care Provider +1 -[phone] Encounter Details Date Type Department Care Team (Late st Contact Info) Description 07/29/2010 7:55 AM EST Office Visit Functional Yazdanism Program [place] [address] Ananth Sesay, PT Social History Tobacco Use [...] [place] [address] PCP - General 06/16/10 06/27/18 documented as of this encounter
--- OUTSIDE RECORDS SUMMARY | 2024-08-15 13:40 | XMS_ITS | Encounter Summary ---
Author Organization [facility] [place] [address] Care Team Providers Care Chemistry Technologist Name Role Phone Aman Lawrence APRN Primary Care Provider +1 -[phone] Encounter Details Date Type Department Care Team (Latest Contact Info) Description 08/06/2010 8:00 AM EST Procedure [place] [address] Caroline Hugo [employer] [facility] [place] [address] Discharge Disposition: Home Social History Tobacco Use [...] on filedocumented in this encounter Care Teams Chemistry Technologist Relationship Specialty Start Date End Date Aman Lawrence [place] [address] PCP - General 06/16/10 06/27/18 documented as of this encounter
--- OUTSIDE RECORDS SUMMARY | 2024-08-15 13:40 | XMS_ITS | Encounter Summary ---
Author Organization [facility] [place] [address] Care Team Providers Care Beverage Manager Name Role Phone Yisel Marroquin MD Primary Care Provider Unavail able Encounter Details Date Type Department Care Team (Late st Contact Info) Description 11/14/2006 Orders Only Radiology and Cardiology Results [address] [place] [address] Apd Conversion, Results Provider, Social [...] filedocumented in this encounter Care Teams Beverage Manager Relationship Specialty Start Date End Date Yisel Marroquin MD PCP - General General Internal Medicine 03/06/19 0 documented as of this encounter
--- OUTSIDE RECORDS SUMMARY | 2024-08-15 13:40 | XMS_ITS | Encounter Summary ---
Author Organization [facility] [place] [address] Care Team Providers Care Inspecting Engineer Name Role Phone Aman Lawrence APRN Primary Care Provider +1 -[phone] Encounter Details Date Type Department Care Team (Late st Contact Info) Description 08/07/2010 7:55 AM EST Office Visit Functional Taoist Program [place] [address] Ananth Sesay, PT Social History Tobacco Use [...] on filedocumented in this encounter Care Teams Inspecting Engineer Relationship Specialty Start Date End Date Aman Lawrence [place] [address] PCP - General 06/16/10 06/27/18 documented as of this encounter
--- OUTSIDE RECORDS SUMMARY | 2024-08-15 13:40 | XMS_ITS | Encounter Summary ---
Author Organization [facility] [place] [address] Care Team Providers Care Oven Press Tender Name Role Phone Aman Lawrence APRN Primary Care Provider +1 -[phone] Encounter Details Date Type Department Care Team (Late st Contact Info) Description 07/31/2010 2:30 PM EST Office Visit Functional Evangelical Program [place] [address] Bong Cabrera MD Social History Tobacco Use [...] on filedocumented in this encounter Care Teams Oven Press Tender Relationship Specialty Start Date End Date [place] [address] PCP - General 06/16/10 06/27/18 documented as of this encounter
--- OUTSIDE RECORDS SUMMARY | 2024-08-15 13:40 | XMS_ITS | Encounter Summary ---
Author Organization [facility] [place] [address] Care Team Providers Care Clerk Travel Reservations Name Role Phone Aman Lawrence APRN Primary Care Provider +1 -[phone] Encounter Details Date Type Department Care Team (Late st Contact Info) Description 08/05/2010 9:00 AM EST Office Visit Functional Anabaptism Program [place] [address] Tawnya Allison Social History Tobacco Use Types [...] on filedocumented in this encounter Care Teams Clerk Travel Reservations Relationship Specialty Start Date End [place] [address] PCP - General 06/16/10 06/27/18 documented as of this encounter
--- OUTSIDE RECORDS SUMMARY | 2024-08-15 13:40 | XMS_ITS | Encounter Summary ---
Author Organization [facility] [place] [address] Care Team Providers Care Automobile Parts Assembler Name Role Phone Aman Lawrence APRN Primary Care Provider +1 -[phone] Encounter Details Date Type Department Care Team (Late st Contact Info) Description 08/05/2010 2:30 PM EST Office Visit Functional Faith Program [place] [address] Bong Cabrera MD Social History Tobacco Use [...] filedocumented in this encounter Care Teams Automobile Parts Assembler Relationship Specialty Start Date End Date [place] [id number] PCP - General 06/16/10 06/27/18 documented as of this encounter
--- OUTSIDE RECORDS SUMMARY | 2024-08-15 13:40 | XMS_ITS | Encounter Summary ---
Author Organization [facility] [place] [address] Care Team Providers Care Briquette Molder Name Role Phone Aman Lawrence APRN Primary Care Provider +1 -[phone] Encounter Details Date Type Department Care Team (Late st Contact Info) Description 08/10/2010 9:40 AM EST Follow-Up Functional Christian [facility] [place] [address] Ana Goins, CHILDBIRTH EDUCATOR [facility] [place] [address] Social History Tobacco Use Types Packs/Day Years Used Date Smoking Tobacco: Never Assessed Sex and Gender Information Value Date Recorded Sex Assigned at Not on file Gender Identity Not on file Sexual Orientation Not on file documented as of this encounter Plan of Treatment Not on file documented as of this encounter Visit Diagnoses Not on filedocumented in this encounter Care Teams Briquette Molder Relationship Specialty Start Date End Date Aman Lawrence [place] [address] PCP - General 06/16/10 06/27/18 documented as of this encounter
--- OUTSIDE RECORDS SUMMARY | 2024-08-15 13:40 | XMS_ITS | Encounter Summary ---
Author Organization [facility] [place] [address] Care Team Providers Care Extruding Machine Operator Name Role Phone Aman Lawrence APRN Primary Care Provider [phone] Encounter Details Date Type Department Care Team (Late st Contact Info) Description 08/06/2010 2:30 PM EST Office Visit Functional Gnosticism Program [place] [address] [address] SUPERVISOR [facility] [place] [address] Social History Tobacco Use Types Packs/Day Years Used Date Smoking Tobacco: Never Assessed Sex and Gender Information Value Date Recorded Sex Assigned at Not on file Gender Identity Not on file Sexual Orientation Not on file documented as of this encounter Plan of Treatment Not on file documented as of this encounter Visit Diagnoses Not on filedocumented in this encounter Care Teams Extruding Machine Operator Relationship Specialty Start Date End Date Aman Lawrence APR[place] [address] [address] PCP - General 06/16/10 06/27/18 documented as of this encounter
--- OUTSIDE RECORDS SUMMARY | 2024-08-15 13:40 | XMS_ITS | Encounter Summary ---
Author Organization [facility] [place] [address] Care Team Providers Care Rescue Worker Name Role Phone Aman Lawrence APRN Primary Care Provider [phone] Encounter Details Date Type Department Care Team (Latest Contact Info) Description 07/29/2010 1:20 PM EST Procedure visit Functional Sikhism Program [place] [address] Bong Cabrera MD Discharge Disposition: Home Social [...] on filedocumented in this encounter Care Teams Rescue Worker Relationship Specialty Start Date End Date Aman Lawrence [place] [address] PCP - General 06/16/10 06/27/18 documented as of this encounter
--- OUTSIDE RECORDS SUMMARY | 2024-08-15 13:40 | XMS_ITS | Encounter Summary ---
Author Organization [facility] [place] [address] Care Team Providers Care Forestry Support Specialist Name Role Phone Aman Lawrence APRN Primary Care Provider [phone] Encounter Details Date Type Department Care Team (Late st Contact Info) Description 08/06/2010 9:00 AM EST Office Visit Functional Methodist Program [place] [address] Tawnya Allison Social History Tobacco Use Types [...] on filedocumented in this encounter Care Teams Forestry Support Specialist Relationship Specialty Start Date End [place] [address] PCP - General 06/16/10 06/27/18 documented as of this encounter
--- OUTSIDE RECORDS SUMMARY | 2024-08-15 13:40 | XMS_ITS | Encounter Summary ---
Author Organization [facility] [place] [place] [address] Care Team Providers Care Direct Marketing Manager Name Role Phone Aman Lawrence APRN Primary Care Provider [phone] Encounter Details Date Type Department Care Team (Late st Contact Info) Description 08/11/2010 7:55 AM EST Office Visit Functional Worship Program [place] [address] Ananth Sesay, PT Social History Tobacco Use [...] filedocumented in this encounter Care Teams Direct Marketing Manager Relationship Specialty Start Date End Date Aman Lawrence [place] [address] PCP - General 06/16/10 06/27/18 documented as of this encounter
--- OUTSIDE RECORDS SUMMARY | 2024-08-15 13:40 | XMS_ITS | Encounter Summary ---
Author Organization [facility] [place] [address] Care Team Providers Care Restaurant Floor Manager Name Role Phone Aman Lawrence APRN Primary Care Provider [phone] Encounter Details Date Type Department Care Team (Late st Contact Info) Description 06/16/2010 3:00 PM EST Office [place] [address] Adal Oliva, OT [facility] PHYSICAL MEDICINE & [place] [address] Social History Tobacco Use Types Packs/Day Years Used Date Smoking Tobacco: Never Assessed Sex and Gender Information Value Date Recorded Sex Assigned at Not on file Gender Identity Not on file Sexual Orientation Not on file documented as of this encounter Plan of Treatment Not on file documented as of this encounter Visit Diagnoses Not on filedocumented in this encounter Care Teams Restaurant Floor Manager Relationship Specialty Start Date End [place] [address] PCP - General 06/16/10 06/27/18 documented as of this encounter
--- OUTSIDE RECORDS SUMMARY | 2024-08-15 13:40 | XMS_ITS | Encounter Summary ---
Author Organization [facility] Address [place] [address] Care Team Providers Care Level Vial Marker Name Role Phone Yisel Marroquin MD Primary Care Provider Unavail able Encounter Details Date Type Department Care Team (Late st Contact Info) Description 02/26/2009 Interpretation Only Radiology [address] [place] [address] Unknown None Social History Tobacco Use Types [...] 10:50 AM EDT APD Historical Result Principal Lace Finisher: ??MAUREEN ??B CHEST - PA AND LATERAL: [...] focal abnormality seen. Maureen Enamorado MD, FACR [facility] [id number] CC: Procedure Note Unknown - 01/22/2019 APD Historical Result Principal Lace Finisher: MAUREEN Garrido CHEST - PA AND LATERAL: [...] focal abnormality seen. Maureen Enamorado MD, FACR [facility] [id number] CC: Unknown IMG DX ORDERABLES documented in this encounter Visit Diagnoses Not on filedocumented in this encounter Care Teams Level Vial Marker Relationship Specialty Start Date End Date Yisel Marroquin MD PCP - General 11/13/18 03/05/19 documented as of this encounter
--- OUTSIDE RECORDS SUMMARY | 2024-08-15 13:40 | XMS_ITS | Encounter Summary ---
Author Organization [place] [address] Care Team Providers Care White Sugar Supervisor Name Role Phone Yisel Marroquin MD Primary Care Provider Unavail able Encounter Details Date Type Department Care Team (Late st Contact Info) Description 08/17/2005 Orders Only Radiology and Cardiology Results [address] [place] [address] Apd Conversion, Results Provider, Social [...] on filedocumented in this encounter Care Teams White Sugar Supervisor Relationship Specialty Start Date End Date Yisel Marroquin MD PCP - General General Internal Medicine 03/06/19 0 documented as of this encounter
--- OUTSIDE RECORDS SUMMARY | 2024-08-15 13:40 | XMS_ITS | Encounter Summary ---
Author Organization [facility] [place] [address] Care Team Providers Care Diamond Sizer And Grader Name Role Phone Aman Lawrence APRN Primary Care Provider [phone] Encounter Details Date Type Department Care Team (Late st Contact Info) Description 08/06/2010 7:55 AM EST Office Visit Functional Holiness Program [place] [address] Ananth Sesay, PT Social History Tobacco Use [...] on filedocumented in this encounter Care Teams Diamond Sizer And Grader Relationship Specialty Start Date End Date Aman Lawrence [place] [address] PCP - General 06/16/10 06/27/18 documented as of this encounter
--- OUTSIDE RECORDS SUMMARY | 2024-08-15 13:40 | XMS_ITS | Encounter Summary ---
Author Organization [facility] [place] [address] Care Team Providers Care Supervisor [place] Name Role Phone Aman Lawrence APRN Primary Care Provider [phone] Encounter Details Date Type Department Care Team (Late st Contact Info) Description 07/30/2010 9:00 AM EST Office Visit Functional Hindu Program [place] [address] Tawnya Allison Social History Tobacco Use Types [...] filedocumented in this encounter Care Teams Supervisor [place] Relationship Specialty Start Date End [place] [id number] PCP - General 06/16/10 06/27/18 documented as of this encounter
--- OUTSIDE RECORDS SUMMARY | 2024-08-15 13:40 | XMS_ITS | Encounter Summary ---
[place] [address] Care Team Providers Care Hotel Or Motel Cleaning Supervisor Name Role Phone Unavailable Primary Care Provider Unavailabl e Encounter Details Date Type Department Care Team (Late st Contact Info) Description 05/28/2010 1:00 PM EDT Office [place] [address] Unknown None Anabell Simpson, PT Social History [...]
--- OUTSIDE RECORDS SUMMARY | 2024-08-15 13:40 | XMS_ITS | Encounter Summary ---
Author Organization [facility] [place] [address] Care Team Providers Care Case Finisher Name Role Phone Aman Lawrence APRN Primary Care Provider [phone] Encounter Details Date Type Department Care Team (Late st Contact Info) Description 08/04/2010 9:00 AM EST Office Visit Functional Yazdanism Program [place] [address] Tawnya Allison Social History Tobacco Use Types [...] on filedocumented in this encounter Care Teams Case Finisher Relationship Specialty Start Date End [place] [address] PCP - General 06/16/10 06/27/18 documented as of this encounter
[2024-08-19 12:07] LABS: Thiamine (Vitamin B1), WB 127 nmol/L (70-180)
== END 2024-08-15 13:25 | disposition home or self-care (01) ==
LOC: NCHCN 13:24
PROVIDERS: PCP Nurse Practitioner Family; Visit Provider Nurse Practitioner Family
DX: E66.9 Obesity, unspecified (principal)
CPT/HCPCS: 84425

== ENCOUNTER 2024-12-05 14:17 | Emergency (ER) | payer MEDICARE, MEDICAID, SELFPAY ==
[2024-12-05 14:19] VITALS: BP 113/79; PULSE 63; RESP 16; TEMP 36.2; O2SAT 96
--- NOTE | 2024-12-05 14:30 | DI.RAD_ITS ---
Exam(s) XR FOREARM RT XR ELBOW RT COMPLETE XR SHOULDER RT COMPLETE 2+V XR HUMERUS RT EXAM: XR SHOULDER RT COMPLETE 2+V, XR elbow RT complete, XR forearm RT and XR humerus RT CLINICAL HISTORY: pain s/p fall. TECHNIQUE: 2D digital imaging was performed of the right elbow, forearm, humerus and shoulder. Five images were obtained. COMPARISON: There are no priors for comparison. FINDINGS: BONES: There is an acute transverse fracture through the proximal metaphysis of the right humerus. T here is mild impaction of the fracture. There is also component of the fracture extending longitudin ally into the greater tuberosity. No bony destructive lesion is seen. There is an old healed distal radial fracture deformity. JOINTS: No dislocation present. There are degenerative changes seen at the acromioclavicular joint. The glenohumeral joint is intact. The elbow is intact. No fracture is seen. There is no elbow join t effusion. The AP view of the elbow is limited due to positioning. SOFT TISSUE: Normal. IMPRESSION: Acute mildly impacted transverse fractures of the proximal metaphysis of the right humerus. DATA REPOSITORY: RADIATION DOSE DELIVERED:
--- NOTE | 2024-12-05 14:41 | ED.GENADUL_ITS ---
Discharge Plan Disposition Patient Disposition: Residential Facility(SNF) Condition: Stable Discharge Details Clinical Impression: Contusion of arm, right, Closed fracture of proximal end of right humerus Primary Care Provider: Jolly Davenport ED Provider: Karl Fields [place] Meds and New Rx's Prescriptions: New tizanidine 2 mg capsule 2 mg PO Q8H PRNQty: 30 0RF Continued fluoxetine 20 mg capsule 60 mg PO DAILY prazosin 5 mg capsule 5 mg PO QHS Incruse Ellipta 62.5 mcg/actuation blister with device 1 inh inhalation DAILY isosorbide mononitrate 30 mg tablet extended release 24 hr 30 mg PO DAILY (DME) Affirm Underwear Misc See Rx Instructions .Route Rx Instructions: As directed aspirin 81 mg tablet,delayed release (DR/EC) 81 mg PO DAILY fluticasone furoate-vilanterol [Breo Ellipta] 200-25 mcg/dose blister with device 1 inh inhalation DAILY docusate sodium 100 mg capsule 100 mg PO BID divalproex 125 mg capsule, delayed rel sprinkle See Rx Instructions PO HS Rx Instructions: 2 QAM and 3 HS orally bedtime; atorvastatin 40 mg Tablet 40 mg PO QPM ferrous sulfate [FeroSul] 325 mg (65 mg iron) tablet 325 mg PO DIRECTED Rx Instructions: 3 times weekly divalproex 250 mg Tablet Extended Release 24 Hr 250 mg PO QPM polyethylene glycol 3350 [Miralax] 17 gram Powder In Packet 17 g PO DAILY clonazepam [Klonopin] 0.5 mg Tablet 0.5 mg PO QPM cyanocobalamin (vitamin B-12) [Vitamin B-12] 1,000 mcg Tablet 1,000 mcg PO HS levothyroxine 50 mcg Tablet 50 mcg PO DAILY nitroglycerin 0.4 mg Tablet, Sublingual 0.4 mg SUBLINGUAL Q5M PRN Rx Instructions: do not exceed 3 doses per episode magnesium oxide 400 mg magnesium Tablet 400 mg PO QPM albuterol 90 mcg/actuation Aerosol 90 mcg INHALATION Q6H PRN PRN Culturelle 10 billion cell Capsule 1 cap PO DAILY cholecalciferol (vitamin D3) 25 mcg (1,000 unit) Tablet 75 mcg PO HS omeprazole 20 mg capsule,delayed release(DR/EC) 40 mg PO DAILY tizanidine 4 mg tablet 4 mg PO QHS trazodone 50 mg tablet 50 mg PO QHS acetaminophen 500 mg capsule 1,000 mg PO TID sennosides [senna] 8.6 mg tablet 17.2 mg PO DAILY calcium citrate 200 mg (950 mg) Tablet 250 mg PO DAILY Discharge Instructions Additional Instructions: You have a proximal right humerus fracture. Call orthopedics tomorrow to arrange for follow-up appointment. You can take 1000 mg of acetaminophen and 600 mg of ibuprofen every 6 hours as needed. If you feel significantly more ill or have severe worsening pain return to the emergency department for reevaluation. Referrals: Colin Hagan MD [ [facility] STAFF PHYSICIAN] - [facility] General Mode of arrival: EMS . Date/Time Provider Initiated Documentation: 12/05/24 14:28 . Limitations to Documentation: no limitations . Information obtained by: patient . History of Present Illness 64 year old F presents to the emergency department with the chief complaint of right arm pain s/p fall, described as moderate, and is localized to the right and upper extremity. Patient reports no radiation. Patient started experiencing this hour(s) (1) and it has been constant. Rest improves symptom(s), Movement worsens symptoms . Patient notes no other symptoms.. Patient did receive the following treatments prior to arrival, none Related Data Home Medications ?Medication ?Instructions ?Recorded ?Confirmed Lactobacillus rhamnosus GG 10 1 cap PO DAILY 09/16/22 11/14/24 billion cell capsule (Culturelle) albuterol 90 mcg/actuation aerosol 90 mcg inhalation Q6H PRN PRN 09/16/22 12/05/24 inhaler atorvastatin 40 mg tablet 40 mg PO QPM 09/16/22 12/05/24 cholecalciferol (vitamin D3) 25 75 mcg PO HS 09/16/22 11/14/24 mcg (1,000 unit) tablet clonazepam 0.5 mg tablet (Klonopin) 0.5 mg PO QPM 09/16/22 12/05/24 cyanocobalamin (vitamin B-12) 1,000 mcg PO HS 09/16/22 11/14/24 1,000 mcg tablet (Vitamin B-12) divalproex 250 mg tablet,extended 250 mg PO QPM 09/16/22 12/05/24 release 24 hr ferrous sulfate 325 mg (65 mg 325 mg PO DIRECTED 09/16/22 11/14/24 iron) tablet (FeroSul) levothyroxine 50 mcg tablet 50 mcg PO DAILY 09/16/22 12/05/24 magnesium oxide 400 mg PO QPM 09/16/22 12/05/24 nitroglycerin 0.4 mg sublingual 0.4 mg sublingual Q5M PRN 09/16/22 12/05/24 tablet polyethylene glycol 3350 17 gram 17 g PO DAILY 09/16/22 12/05/24 oral powder packet (Miralax) isosorbide mononitrate 30 mg 30 mg PO DAILY 10/11/22 12/05/24 tablet,extended release 24 hr aspirin 81 mg tablet,delayed 81 mg PO DAILY 05/24/24 12/05/24 release diaper,brief,adult,disposable 05/24/24 11/14/24 (Affirm Underwear) docusate sodium 100 mg capsule 100 mg PO BID 05/24/24 12/05/24 fluticasone furoate 200 1 inh inhalation DAILY 05/24/24 12/05/24 mcg-vilanterol 25 mcg/dose inhalation powder (Breo Ellipta) acetaminophen 500 mg capsule 1,000 mg PO TID 11/14/24 12/05/24 divalproex 125 mg capsule,delayed See Rx Instructions PO HS 11/14/24 12/05/24 release sprinkle fluoxetine 20 mg capsule 60 mg PO DAILY 11/14/24 12/05/24 omeprazole 20 mg capsule,delayed 40 mg PO DAILY 11/14/24 12/05/24 release prazosin 5 mg capsule 5 mg PO QHS 11/14/24 12/05/24 sennosides 8.6 mg tablet (senna) 17.2 mg PO DAILY 11/14/24 12/05/24 tizanidine 4 mg tablet 4 mg PO QHS 11/14/24 12/05/24 trazodone 50 mg tablet 50 mg PO QHS depression 11/14/24 12/05/24 umeclidinium 62.5 mcg/actuation 1 inh inhalation DAILY 11/14/24 12/05/24 blister powder for inhalation (Incruse Ellipta) calcium citrate 250 mg PO DAILY 12/05/24 12/05/24 tizanidine 2 mg capsule 2 mg PO Q8H PRN #30 caps 12/05/24 Previous Rx's ?Medication ?Instructions ?Recorded tizanidine 2 mg capsule 2 mg PO Q8H PRN #30 caps 12/05/24 Allergies Allergy/AdvReac Type Severity Reaction Status Date / Time morphine Allergy Unknown Verified 12/05/24 14:24 oxycodone Allergy Unknown Verified 12/05/24 14:24 prednisone Allergy Unknown Verified 12/05/24 14:24 sumatriptan (From Imitrex) Allergy Unknown Unverified 12/05/24 14:24 varenicline (From Chantix) Allergy Unknown Verified 12/05/24 14:24 General Stated Complaint: Orthopedic GEOFFREY: 3 Review of Systems All systems reviewed & are unremarkable except as noted in HPI and below Constitutional Constitutional: Denies chills, Denies fever(s) and Denies weakness Cardiovascular Cardiovascular: Denies chest pain and Denies dyspnea Respiratory Respiratory: Denies cough and Denies dyspnea Gastrointestinal Gastrointestinal: Denies abdominal pain, Denies nausea and Denies vomiting Neurologic Neurologic: Denies weakness Exam Const General: no acute distress Orientation: alert HENNE Head: normal to inspection Ears: external ears normal General nose exam: external nose normal Mouth: moist mucous membranes Eyes General: appearance normal, both eyes and all related structures Neck Neck: normal visual inspection Resp Effort & Inspection: normal respiratory effort and able to speak in complete sentences Cardio Rate: regular rate Skin General skin exam: no rashes or lesions noted Neuro General: patient alert and patient oriented x3 Extrem General: capillary refill normal Psych Mental Status: mental status grossly normal Course Vital Signs Vital signs: Vital Signs Temperature 36.2 C L 12/05/24 14:19 Pulse 63 12/05/24 14:19 Respiratory Rate 16 12/05/24 14:19 Blood Pressure 113/79 12/05/24 14:19 Pulse Oximetry 96 12/05/24 14:19 Temperature 36.2 C L 12/05/24 14:19 Temperature Source Temporal Artery Scan 12/05/24 14:19 Pulse 63 12/05/24 14:19 Respiratory Rate 16 12/05/24 14:19 Blood Pressure 113/79 12/05/24 14:19 Blood Pressure Position Sitting 12/05/24 14:19 Pulse Oximetry 96 12/05/24 14:19 Oxygen Delivery Method Room Air 12/05/24 14:19 Oxygen Flow Rate 0 12/05/24 14:19 Pain Level 10 12/05/24 14:19 Medical Decision Making 64-year-old female with a history of bipolar, resides at [facility] and rehab comes in after she was walking and tripped over a rug landing on her right arm. She denies hitting her head or loss of consciousness. Denies any preceding symptoms such as dizziness, chest pain or difficulty breathing. She is well-appearing on exam. She has tenderness to the right lateral shoulder, right mid humerus, right lateral elbow and right mid forearm. She has no pain or tenderness in her wrist or hands. She has intact distal sensation and pulses. She has limited range of motion of the shoulder and elbow due to pain. She has no headache, no neck pain, no back pain, no chest or abdomen pain has no tenderness in these areas. Will obtain x-rays of her right shoulder, humerus, elbow and forearm and reassess. X-ray shows proximal humerus fracture otherwise no acute findings. Patient is stable and appears well. She says that she is having some muscle spasms in her right upper extremity and requesting muscle relaxer for and states she was treated as well with tizanidine which I feel is reasonable. She will follow-up with orthopedics and return precautions Differential Diagnosis Differential Diagnosis: Fracture, contusion Quality:SDOH Health Related Social Needs: No Data to Display [facility] All Active Problems (Updated 12/05/24 @ 15:58 by Karl Fields MD) Closed fracture of proximal end of right humerus (Acute) Contusion of arm, right (Acute) DNR (do not resuscitate) (Acute) See 11/14/24 COLST: DNR/DNI, yes transfer to the hospital and treat, use trial of antibiotics and IV fluids. No feeding tube. Osteoporosis (Chronic) Advanced care planning/counseling discussion (Acute) Ambulatory dysfunction (Acute) Bipolar 1 disorder (Acute) Anxiety and depression (Chronic) Fracture of right tibia and fibula (Acute) S/P IM FIXATION Fracture of left proximal fibula (Acute) Closed fracture of left distal tibia (Acute) Medical History (Updated 12/05/24 @ 15:58 by Karl Fields MD) Palliative care encounter Chronic neck pain with history of cervical spinal surgery Smoker Migraine CAD (coronary artery disease) Prediabetes Cervical stenosis of spinal canal Asthma Surgical History (Updated 05/24/24 @ 13:19 by Cristela Zapata RN) History of cholecystectomy open H/O gastric bypass Stented coronary artery Social History Smoking/Tobacco Use Status: Current every day Tobacco Type: cigarettes Smoking risk assessment performed?: Yes Alcohol Intake: never Substance use type: marijuana Housing: assisted living facility Do you feel safe at home: Yes Do you feel safe in your relationship?: Yes
[2024-12-05] MEDS: ACETAMINOPHEN 1,000 MG/100 ML BTL 400 MG IVPB (14:48)
[2024-12-05 16:13] VITALS: BP 116/75; PULSE 65; RESP 16; TEMP 36.6; O2SAT 98
== END 2024-12-05 16:33 | disposition skilled nursing facility (03) ==
PROVIDERS: Emergency Provider Emergency Medicine; PCP Nurse Practitioner Family
DX: S42.291A Other displaced fracture of upper end of right humerus, initial encounter for closed fracture (principal); F17.210 Nicotine dependence, cigarettes, uncomplicated; I25.10 Atherosclerotic heart disease of native coronary artery without angina pectoris; Z95.5 Presence of coronary angioplasty implant and graft; Z98.84 Bariatric surgery status; W18.39XA Other fall on same level, initial encounter; Y93.01 Activity, walking, marching and hiking; Y92.098 Other place in other non-institutional residence as the place of occurrence of the external cause
CPT/HCPCS: 96365; 99284; 73030; 73060; 73080; 73090; J0131

== ENCOUNTER 2024-12-06 18:07 | Emergency (ER) | payer MEDICARE, MEDICAID, SELFPAY ==
--- NOTE | 2024-12-06 18:00 | RT.EKG_ITS ---
APPROVED REPORT Exam: Resting ECG Reason for Exam: dizziness Patient Location: E HR:46 bpm ECG Measurements Heart Rate 46 AXIS NE 156 P 42 QRSd 89 QRS 60 QT 455 T 47 QTc 398 Conclusion Bradycardia with irregular rate...V-rate 41- 54, mean < 60
[2024-12-06 18:12] VITALS: BP 167/79; PULSE 51; RESP 18; O2SAT 97
[2024-12-06 18:18] VITALS: PULSE 48; PULSE 56; RESP 16; O2SAT 98
[2024-12-06 18:20] VITALS: PULSE 49; PULSE 51; RESP 15; O2SAT 97
[2024-12-06 18:30] VITALS: PULSE 55; PULSE 56; RESP 17; O2SAT 98
--- NOTE | 2024-12-06 18:33 | DI.RAD_ITS ---
Exam(s) XR PELVIS AP EXAM: XR PELVIS AP CLINICAL HISTORY: fall/pain. TECHNIQUE: 2D digital imaging was performed. COMPARISON: No exams were available for comparison FINDINGS: Single AP view of the pelvis There is no obvious pelvic nor hip fracture. Bone density is age-appropriate. No osseous lesions. No hip joint space narrowing. Some calcification is noted in the femoral arteries bilaterally. IMPRESSION: No acute osseous findings. DATA REPOSITORY: RADIATION DOSE DELIVERED:
--- NOTE | 2024-12-06 18:35 | ED.GENADUL_ITS ---
Discharge Plan Disposition Patient Disposition: Home Condition: Stable Discharge Details Clinical Impression: Acute pain of right hip Primary Care Provider: Jolly Davenport ED Provider: Jasmeet See Home Meds and New Rx's Prescriptions: Continued fluoxetine 20 mg capsule 60 mg PO DAILY prazosin 5 mg capsule 5 mg PO QHS Incruse Ellipta 62.5 mcg/actuation blister with device 1 inh inhalation DAILY isosorbide mononitrate 30 mg tablet extended release 24 hr 30 mg PO DAILY (DME) Affirm Underwear Misc See Rx Instructions .Route Rx Instructions: As directed aspirin 81 mg tablet,delayed release (DR/EC) 81 mg PO DAILY fluticasone furoate-vilanterol [Breo Ellipta] 200-25 mcg/dose blister with device 1 inh inhalation DAILY docusate sodium 100 mg capsule 100 mg PO BID divalproex 125 mg capsule, delayed rel sprinkle See Rx Instructions PO HS Rx Instructions: 2 QAM and 3 HS orally bedtime; atorvastatin 40 mg Tablet 40 mg PO QPM ferrous sulfate [FeroSul] 325 mg (65 mg iron) tablet 325 mg PO DIRECTED Rx Instructions: 3 times weekly divalproex 250 mg Tablet Extended Release 24 Hr 250 mg PO QPM polyethylene glycol 3350 [Miralax] 17 gram Powder In Packet 17 g PO DAILY clonazepam [Klonopin] 0.5 mg Tablet 0.5 mg PO QPM cyanocobalamin (vitamin B-12) [Vitamin B-12] 1,000 mcg Tablet 1,000 mcg PO HS levothyroxine 50 mcg Tablet 50 mcg PO DAILY nitroglycerin 0.4 mg Tablet, Sublingual 0.4 mg SUBLINGUAL Q5M PRN Rx Instructions: do not exceed 3 doses per episode magnesium oxide 400 mg magnesium Tablet 400 mg PO QPM albuterol 90 mcg/actuation Aerosol 90 mcg INHALATION Q6H PRN PRN Culturelle 10 billion cell Capsule 1 cap PO DAILY cholecalciferol (vitamin D3) 25 mcg (1,000 unit) Tablet 75 mcg PO HS omeprazole 20 mg capsule,delayed release(DR/EC) 40 mg PO DAILY tizanidine 4 mg tablet 4 mg PO QHS trazodone 50 mg tablet 50 mg PO QHS acetaminophen 500 mg capsule 1,000 mg PO TID sennosides [senna] 8.6 mg tablet 17.2 mg PO DAILY calcium citrate 200 mg (950 mg) Tablet 250 mg PO DAILY tizanidine 2 mg capsule 2 mg PO Q8H PRNQty: 30 0RF Discharge Instructions Instructions: Hip Pain ED Additional Instructions: X-ray and CT of the hip and pelvis are both unremarkable for acute fracture. Please continue your current medications for discomfort and speak with your facility doctor tomorrow for additional analgesia for breakthrough pain. It would be difficult to ambulate as you typically use a brace on your right lower extremity and use a walker. Your recent right arm fracture makes it very difficult to use that arm to help ambulate. Fortunately you are already at a rehab facility where they can help you. Please watch for new or worsening symptoms and return to the ER for any concerns. Discharge Data Discharge Date/Time-TO BE ENTERED AT DEPARTURE: 12/06/24 22:42 HPI General Mode of arrival: EMS . Date/Time Provider Initiated Documentation: 12/06/24 18:20 . Limitations to Documentation: no limitations . Information obtained by: patient . History of Present Illness 64 year old F presents to the emergency department with the chief complaint of Right hip pain, described as moderate, with intensity rated at 6. Quality is described as aching, and is localized to the right and lower extremity. Patient reports no radiation. Patient started experiencing this day(s) (1) and it has been constant. Immobilization improves symptom(s), Movement worsens symptoms . Patient notes other (Known proximal right humerus fracture). Patient did receive the following treatments prior to arrival, none Related Data Home Medications ?Medication ?Instructions ?Recorded ?Confirmed Lactobacillus rhamnosus GG 10 1 cap PO DAILY 09/16/22 12/06/24 billion cell capsule (Culturelle) albuterol 90 mcg/actuation aerosol 90 mcg inhalation Q6H PRN PRN 09/16/22 12/06/24 inhaler atorvastatin 40 mg tablet 40 mg PO QPM 09/16/22 12/06/24 cholecalciferol (vitamin D3) 25 75 mcg PO HS 09/16/22 12/06/24 mcg (1,000 unit) tablet clonazepam 0.5 mg tablet (Klonopin) 0.5 mg PO QPM 09/16/22 12/06/24 cyanocobalamin (vitamin B-12) 1,000 mcg PO HS 09/16/22 12/06/24 1,000 mcg tablet (Vitamin B-12) divalproex 250 mg tablet,extended 250 mg PO QPM 09/16/22 12/06/24 release 24 hr ferrous sulfate 325 mg (65 mg 325 mg PO DIRECTED 09/16/22 12/06/24 iron) tablet (FeroSul) levothyroxine 50 mcg tablet 50 mcg PO DAILY 09/16/22 12/06/24 magnesium oxide 400 mg PO QPM 09/16/22 12/06/24 nitroglycerin 0.4 mg sublingual 0.4 mg sublingual Q5M PRN 09/16/22 12/06/24 tablet polyethylene glycol 3350 17 gram 17 g PO DAILY 09/16/22 12/06/24 oral powder packet (Miralax) isosorbide mononitrate 30 mg 30 mg PO DAILY 10/11/22 12/06/24 tablet,extended release 24 hr aspirin 81 mg tablet,delayed 81 mg PO DAILY 05/24/24 12/06/24 release diaper,brief,adult,disposable 05/24/24 12/06/24 (Affirm Underwear) docusate sodium 100 mg capsule 100 mg PO BID 05/24/24 12/06/24 fluticasone furoate 200 1 inh inhalation DAILY 05/24/24 12/06/24 mcg-vilanterol 25 mcg/dose inhalation powder (Breo Ellipta) acetaminophen 500 mg capsule 1,000 mg PO TID 11/14/24 12/06/24 divalproex 125 mg capsule,delayed See Rx Instructions PO HS 11/14/24 12/06/24 release sprinkle fluoxetine 20 mg capsule 60 mg PO DAILY 11/14/24 12/06/24 omeprazole 20 mg capsule,delayed 40 mg PO DAILY 11/14/24 12/06/24 release prazosin 5 mg capsule 5 mg PO QHS 11/14/24 12/06/24 sennosides 8.6 mg tablet (senna) 17.2 mg PO DAILY 11/14/24 12/06/24 tizanidine 4 mg tablet 4 mg PO QHS 11/14/24 12/06/24 trazodone 50 mg tablet 50 mg PO QHS depression 11/14/24 12/06/24 umeclidinium 62.5 mcg/actuation 1 inh inhalation DAILY 11/14/24 12/06/24 blister powder for inhalation (Incruse Ellipta) calcium citrate 250 mg PO DAILY 12/05/24 12/06/24 tizanidine 2 mg capsule 2 mg PO Q8H PRN #30 caps 12/05/24 12/06/24 Previous Rx's ?Medication ?Instructions ?Recorded tizanidine 2 mg capsule 2 mg PO Q8H PRN #30 caps 12/05/24 Allergies Allergy/AdvReac Type Severity Reaction Status Date / Time morphine Allergy Unknown Verified 12/05/24 14:24 oxycodone Allergy Unknown Verified 12/05/24 14:24 prednisone Allergy Unknown Verified 12/05/24 14:24 sumatriptan (From Imitrex) Allergy Unknown Unverified 12/05/24 14:24 varenicline (From Chantix) Allergy Unknown Verified 12/05/24 14:24 General Stated Complaint: Orthopedic GEOFFREY: 3 Review of Systems Constitutional Constitutional: Denies headache(s) and Denies weakness Eyes Eyes: Denies change in vision ENT Ears, Nose, Mouth, and Throat: Denies headache(s) and Denies neck pain Cardiovascular Cardiovascular: Denies chest pain and Denies dyspnea Respiratory Respiratory: Denies dyspnea Gastrointestinal Gastrointestinal: Denies abdominal pain, Denies nausea and Denies vomiting Genitourinary Genitourinary: Denies dysuria Musculoskeletal Musculoskeletal: Denies back pain, Denies neck pain, Denies numbness and Denies tingling Integumentary/Breasts Skin/Breast: Denies rash Neurologic Neurologic: Denies headache(s), Denies numbness, Denies tingling and Denies weakness Hematologic/Lymphatic Hematologic/Lymphatic: Denies easy bleeding and Denies easy bruising Exam Const General: cooperative, healthy appearing, comfortable and no acute distress Orientation: alert, awake and oriented x3 HENMT Head: normal to inspection, normocephalic and atraumatic Face and sinus: normal facial exam Mouth: moist mucous membranes Eyes General: appearance normal, both eyes and all related structures Conjunctivae: conjunctivae normal Direct ophthalmoscopy: normal light reflex Neck Neck: normal visual inspection, full ROM, trachea midline and supple Resp Effort & Inspection: normal respiratory effort and able to speak in complete sentences Auscultation: clear to auscultation bilaterally Cardio Rate: bradycardic Rhythm: regular rhythm GI Palpation: soft and nontender Back/Spine/Pelvis Back: No back tenderness Skin General skin exam: no rashes or lesions noted Neuro General: patient alert, patient awake, patient oriented x3, moves all extremities and no focal motor deficits Cognition: normal cognition Speech: speech normal Motor: muscle tone normal throughout Sensory Exam: no sensory deficits noted Extrem General: capillary refill normal Other: Right hip with diffuse mild discomfort. Skin is intact without obvious deformity. There is no obvious shortening or rotation of the leg. The patient is able to demonstrate some limited hip movement but states increased muscular pain about the hip with any movement. Psych Appearance: grossly normal Mental Status: mental status grossly normal Course Vital Signs Vital signs: Vital Signs Pulse 51 L 12/06/24 18:12 Respiratory Rate 18 12/06/24 18:12 Blood Pressure 167/79 H 12/06/24 18:12 Pulse Oximetry 97 12/06/24 18:12 Pulse 51 L 12/06/24 18:12 Respiratory Rate 18 12/06/24 18:12 Blood Pressure 167/79 H 12/06/24 18:12 Pulse Oximetry 97 12/06/24 18:12 Medical Decision Making 64-year-old female who is a DNR, with a history of bipolar, anxiety, depression, thyroid disease, GERD, CAD, resides at [facility] and rehab comes in for right hip pain a day after falling. Patient describes mechanical fall yesterday for which she was seen in the ER and was diagnosed with a right proximal humerus fracture. Patient states that the discomfort in the arm was so severe she did not notice the discomfort in her right hip. She does admit that she typically ambulates with a walker and wears a brace on her right ankle. She has had difficulty ambulating secondary to pain in her hip but also her inability to bear weight on her right arm which makes using the walker very challenging. She is also not wearing the brace on her ankle. She denies subsequent injury. She mentioned dizziness to the triage nurse. Patient states this is chronic and intermittent, none currently. Again states that the fall was mechanical, no dizziness associate with the fall. Patient was given a prescription for a muscle relaxer yesterday which she is taking, states it works fairly well. Plans to speak with her facility doctor tomorrow regarding additional analgesia Challenging situation given her baseline difficulty with ambulation, now compounded with a right humeral fracture making ambulation with walker very challenging especially now with right hip pain status post fall. Will obtain x- ray of the pelvis, hip, and femur. Will also obtain routine laboratory values and the chance this is fractured and would require admission and surgery. Differential includes but excluded to hip contusion, hip fracture, pelvis fracture, extremely low suspicion for femur fracture or dislocation. Laboratory values do not reveal any obvious emergent process. EKG reveals bradycardia with a ventricular rate of 46. No STEMI. When comparing prior ER visits, baseline heart rate typically bradycardia. Heart rate primarily in the mid 50s here on the clinical research monitor. Pelvis, right hip, and femur x-ray ordered and reviewed, confirmed by radiology as osteoarthritis of the right hip, no acute fracture. Discussed initial results with patient. She is eager to return to her facility. Given her inability to safely ambulate, I will obtain CT imaging of the pelvis to further evaluate occult fracture. Pelvis CT ordered and read by radiology as no acute fracture. Diffuse osteopenia noted. Discussed workup with patient in length. Patient is eager to return to the facility where her reside. She feels like this is the most appropriate disposition as she is already at a rehab facility who can help her navigate her difficulty ambulating, baseline walker use, and right humeral fracture and right hip pain status post fall. She does request that I speak with her sister. Spoke with patient's Sister JHONATAN Rae, regarding exam, workup, and disposition. She was appreciative of the call and felt like transfer back to her facility was completely reasonable. Medical Records Medical records reviewed: Yes I reviewed the patient's medical records. Lab Data Lab results reviewed: Yes I reviewed the patient's lab results. Labs: Laboratory Tests Range/Units 12/06/24 12/06/24 19:40 19:59 WBC (4.4-10.8) 10^3/uL 10.66 RBC (3.93-5.22) 10^6/uL 3.84 L Hgb (11.2-15.7) g/dL 12.5 Hct (36.0-46.0) % 37.8 MCV (80-95) fL 98 H MCH (27.0-33.0) pg 32.6 MCHC (32.0-36.0) % 33.1 RDW (11.7-14.6) % 13.4 Plt Count (130-400) 10^3/uL 157 MPV (8.0-11.0) fL 9.2 Immature Gran % % 0.4 Neutrophils % % 73.1 Lymphocytes % % 15.1 Monocytes % % 8.1 Eosinophils % % 2.6 Basophils % % 0.7 Nucleated RBC % (0.0-0.3) % 0.0 Absolute Neutrophils (1.2-6.7) 10^3/uL 7.80 H Absolute Lymphocytes (1.2-3.4) 10^3/uL 1.61 Absolute Monocytes (0.1-0.8) 10^3/uL 0.86 H Absolute Eosinophils (0.0-0.7) 10^3/uL 0.28 Absolute Basophils (0.0-0.2) 10^3/uL 0.07 Sodium (136-145) mmol/L 139 Potassium (3.5-5.1) mmol/L 4.0 Chloride (98-107) mmol/L 103 Carbon Dioxide (21.0-32.0) mmol/L 31.1 Anion Gap (3-11) mmol/L 4.9 BUN (7-18) mg/dL 41 H Creatinine (0.55-1.02) mg/dL 1.1 H Est GFR (CKD-EPI 2020) (mL/min/1.73m2) 56.11 Glucose (74-106) mg/dL 88 Calcium (8.5-10.1) mg/dL 9.3 Total Bilirubin (0.2-1.0) mg/dL 0.5 AST (15-37) U/L 17 ALT (14-59) U/L 27 Alkaline Phosphatase (46-116) U/L 84 Total Protein (6.4-8.2) g/dL 6.2 L Albumin (3.4-5.0) g/dL 3.2 L TSH (0.36-3.74) uIU/mL 1.90 Urine Color (Yellow) Yellow Urine Clarity (Clear) Clear Urine pH (5-8) 6.5 Ur Specific [place] (1.005-1.025) 1.020 Urine Protein (Neg-Trace) mg/dL Trace Urine Ketones (Negative) mg/dL Trace H Urine Blood (Negative) Negative Urine Nitrite (Negative) Negative Urine Bilirubin (Negative) Negative Urine Urobilinogen (Up to 0.2) mg/dL 1.0 H Ur Leukocyte Esterase (Negative) Small H Urine RBC (0-2) HPF 0-2 Urine WBC (0-5) HPF 0-2 Ur Epithelial Cells (Negative) HPF Rare Urine Crystals (Negative) HPF Negative Urine Bacteria (Negative) HPF Negative Urine Mucus (Negative) Trace Ur Culture Indicated? No Urine Glucose (Negative) mg/dL Negative Quality:SDOH Health Related Social Needs: No Data to Display PFSH All Active Problems (Updated 12/06/24 @ 22:12 by SIMÓN Lo) Acute pain of right hip (Acute) Closed fracture of proximal end of right humerus (Acute) Contusion of arm, right (Acute) DNR (do not resuscitate) (Acute) See 11/14/24 COLST: DNR/DNI, yes transfer to the hospital and treat, use trial of antibiotics and IV fluids. No feeding tube. Osteoporosis (Chronic) Advanced care planning/counseling discussion (Acute) Ambulatory dysfunction (Acute) Bipolar 1 disorder (Acute) Anxiety and depression (Chronic) Fracture of right tibia and fibula (Acute) S/P IM FIXATION Fracture of left proximal fibula (Acute) Closed fracture of left distal tibia (Acute) Medical History (Updated 12/06/24 @ 22:12 by SIÓMN Lo) Palliative care encounter Chronic neck pain with history of cervical spinal surgery Smoker Migraine CAD (coronary artery disease) Prediabetes Cervical stenosis of spinal canal Asthma Surgical History (Updated 05/24/24 @ 13:19 by Cristela Zapata RN) History of cholecystectomy open H/O gastric bypass Stented coronary artery Social History Smoking/Tobacco Use Status: Current every day Tobacco Type: cigarettes Smoking risk assessment performed?: Yes Alcohol Intake: never Substance use type: marijuana Housing: assisted living facility Do you feel safe at home: Yes Do you feel safe in your relationship?: Yes
--- NOTE | 2024-12-06 18:45 | DI.RAD_ITS ---
Exam(s) XR CHEST 2V PA LATERAL EXAM: XR CHEST 2V PA LATERAL CLINICAL HISTORY: fall. TECHNIQUE: 2D digital imaging was performed. COMPARISON: CR XR CHEST 2V PA LATERAL from 09/16/2022 FINDINGS: 2 views: Heart size is normal. The mediastinum is not widened. Lungs are clear. No infiltrates nor pleural effusions. IMPRESSION: No acute pulmonary findings. DATA REPOSITORY: RADIATION DOSE DELIVERED:
--- NOTE | 2024-12-06 19:19 | DI.RAD_ITS ---
Exam(s) XR FEMUR RT EXAM: XR FEMUR RT CLINICAL HISTORY: fall/pain. TECHNIQUE: 2D digital imaging was performed. COMPARISON: CR XR TIB/FIB RT from 12/30/2023 FINDINGS: Two views. There is no femur fracture identified. Minimal if any significant degenerative changes in the hip kyler int. IMPRESSION: No acute osseous findings in the right femur. DATA REPOSITORY: RADIATION DOSE DELIVERED:
--- NOTE | 2024-12-06 19:30 | DI.CT_ITS ---
Exam(s) CT PELVIC WO EXAM: CT PELVIC WO CLINICAL HISTORY: R hip pain, won't bear weight. TECHNIQUE: Imaging Protocol: Axial computed tomography images with coronal and sagittal reformatted images were created and reviewed CONTRAST MATERIAL: Intravenous: none Oral: None COMPARISON: No exams were available for comparison FINDING: PELVIS: OSSEOUS: No pelvic nor hip fractures evident.No significant osseous lesions evident.No hematomas evid ent. ANTERIOR ABDOMINAL WALL/GI:No evidence of significant anterior abdominal wall nor inguinal hernia in the pelvis evident.There is abundant fecal material noted in the rectum. No obvious true bowel obstr uction. No evidence of appendicitis.No evidence of acute sigmoid diverticulitis.No free fluid in the pelvis. LYMPH NODES: There is no intrapelvic nor inguinal adenopathy. URINARY BLADDER: Mostly collapsed. No calculi nor obvious masses evident REPRODUCTIVE: Uterus is surgically absent. No abnormal adnexal masses nor free fluid in the pelvis.. IMPRESSION: 1. No fractures evident in the pelvis and hips. If there is high clinical suspicion for fracture the n follow-up rapid 10 minute MRI protocol of the hip/pelvic can be performed for added sensitivity/spe cificity. RADIATION DOSE DELIVERED: 544.55mGy.cm Total DLP DATA REPOSITORY: All CT scans at this facility are submitted to the National Radiology Data Registry (NRDR) Dose Index Registry (DIR) with the [employer] (ACR). RADIATION OPTIMIZATION: All CT scans at this facility use at least one of these dose optimization te chniques: automated exposure control; mA and/or kV adjustment per patient size (includes targeted exa ms where dose is matched to clinical indication); or iterative reconstruction.
[2024-12-06 19:46] LABS: Abs Immature Grans 0.04 10^3/uL (0.0-0.06); Absolute Basophil Count 0.07 10^3/uL (0.0-0.2); Absolute Eosinophil Count 0.28 10^3/uL (0.0-0.7); Absolute Lymphocyte Count 1.61 10^3/uL (1.2-3.4); Absolute Monocyte Count 0.86 10^3/uL (0.1-0.8); Basophils % 0.7 %; Eosinophils % 2.6 %; HCT 37.8 % (36.0-46.0); HGB 12.5 g/dL (11.2-15.7); Immature Grans % 0.4 %; Lymphocytes % 15.1 %; MCH 32.6 pg (27.0-33.0); MCHC 33.1 % (32.0-36.0); MCV 98 fL (80-95); MPV 9.2 fL (8.0-11.0); Monocytes % 8.1 %; Neutrophils % 73.1 %; Platelet Count 157 10^3/uL (130-400); RBC 3.84 10^6/uL (3.93-5.22); RDW 13.4 % (11.7-14.6); RDW-SD 48.7 fL; WBC 10.66 10^3/uL (4.4-10.8)
[2024-12-06 20:07] LABS: Bilirubin Negative (Negative); Blood Negative (Negative); Clarity Clear (Clear); Glucose Negative (Negative); Ketones Trace mg/dL (Negative); Leukocyte Esterase Small (Negative); Nitrite Negative (Negative); pH 6.5 (5-8)
--- NOTE | 2024-12-06 20:07 | DI.VRAD_ITS ---
PROCEDURE INFORMATION: Exam: XR Right Femur Exam date and time: 12/06/2024 7:12 PM Age: 64 years old Clinical indication: Injury or trauma; Injury details: Fall/pain TECHNIQUE: Imaging protocol: Radiologic exam of the right femur. Views: 2 views. COMPARISON: CT LOWER EXTREMITY RT WO 09/16/2022 2:00 PM FINDINGS: Bones/joints: No acute fracture. Mild osteoarthritis of the right hip. No lytic or blastic lesions. Soft tissues: Unremarkable. IMPRESSION: 1. No acute fracture. 2. Osteoarthritis of the right hip. Dictated and Authenticated by: Yariel Simon MD. Orderin Mayi Alamo MD
[2024-12-06 20:12] LABS: ALT 27 U/L (14-59); AST 17 U/L (15-37); Albumin 3.2 g/dL (3.4-5.0); Alkaline Phosphatase 84 U/L (46-116); Anion Gap 4.9 mmol/L (3-11); BUN 41 mg/dL (7-18); Bilirubin, Total 0.5 mg/dL (0.2-1.0); CO2 31.1 mmol/L (21.0-32.0); CREATININE 1.1 mg/dL (0.55-1.02); Calcium 9.3 mg/dL (8.5-10.1); Chloride 103 mmol/L (98-107); Estimated GFR 56.11 (mL/min/1.73m2); Glucose 88 mg/dL (74-106); Sodium 139 mmol/L (136-145); Total Protein 6.2 g/dL (6.4-8.2)
[2024-12-06 20:14] LABS: Bacteria Negative HPF (Negative); C & S Indicated? No; Crystals Negative HPF (Negative); Epithelial Cells Rare HPF (Negative); Mucus Trace (Negative); RBC 0-2 HPF (0-2); WBC 0-2 HPF (0-5)
--- NOTE | 2024-12-06 20:14 | DI.VRAD_ITS ---
PROCEDURE INFORMATION: Exam: CT Pelvis Without Contrast, Skeleton Exam date and time: 12/06/2024 7:59 PM Age: 64 years old Clinical indication: Right hip; RT hip pain, will not bear weight TECHNIQUE: Imaging protocol: Computed tomography of the pelvis without contrast. Exam focused on the skeleton. COMPARISON: CR XR PELVIS AP 12/06/2024 7:10 PM FINDINGS: Intestine: Constipation. Bones/joints: No acute fracture. Osteoarthritic changes involving both hips. Diffuse osteopenia. Soft tissues: Unremarkable. IMPRESSION: 1. No acute fracture. 2. Diffuse osteopenia. 3. Constipation. Dictated and Authenticated by: Yariel Simon MD. Orderin Mayi Alamo MD
[2024-12-06] MEDS: Acetaminophen 500 MG TAB (21:40)
== END 2024-12-06 22:42 | disposition home or self-care (01) ==
PROVIDERS: Emergency Provider Physician Assistant; PCP Nurse Practitioner Family
DX: M25.551 Pain in right hip (principal); I25.10 Atherosclerotic heart disease of native coronary artery without angina pectoris; F17.210 Nicotine dependence, cigarettes, uncomplicated; Z95.5 Presence of coronary angioplasty implant and graft; Z98.84 Bariatric surgery status; Z79.82 Long term (current) use of aspirin
CPT/HCPCS: 73552; 80053; 93005; 99285; 71046; 72170; 72192; 81003; 81015; 84443; 85025; 93010; 99284

== ENCOUNTER 2024-12-12 10:23 | Outpatient (CLI) | payer MEDICARE, MEDICAID, SELFPAY ==
--- NOTE | 2024-12-12 09:45 | DI.RAD_ITS ---
Exam(s) XR SHOULDER RT COMPLETE 2+V EXAM: XR SHOULDER RT COMPLETE 2+V CLINICAL HISTORY: F/U FRACTURE. TECHNIQUE: 2D digital imaging was performed of the right shoulder. Two images were obtained. Grash ey and Y views were obtained. COMPARISON: CR XR SHOULDER RT COMPLETE 2+V from 12/05/2024 FINDINGS: BONES: There has been no change in alignment of the fracture through the proximal metaphysis of the r ight humerus. No bony destructive lesion is seen. JOINTS: No dislocation present. Degenerative changes are seen at the acromioclavicular joint. SOFT TISSUE: Normal. IMPRESSION: Stable alignment of the proximal right humeral fracture. DATA REPOSITORY: RADIATION DOSE DELIVERED:
== END 2024-12-12 10:24 | disposition home or self-care (01) ==
LOC: DIORS 10:23
PROVIDERS: PCP Nurse Practitioner Family; Referring Provider Nurse Practitioner Family; Visit Provider Student in an Organized Health Care Education/Training Program
DX: S42.201A Unspecified fracture of upper end of right humerus, initial encounter for closed fracture (principal); W19.XXXA Unspecified fall, initial encounter
CPT/HCPCS: 99213; 73030

== ENCOUNTER 2025-01-06 06:02 | Inpatient (IN) | payer MEDICARE, MEDICAID, SELFPAY ==
[2025-01-06] VITALS (41 sets, daily range): BP systolic 91–143; BP diastolic 41–111; PULSE 65–96; RESP 15–26; TEMP 35.5–36.6; O2SAT 89–97
--- NOTE | 2025-01-06 06:00 | DI.CT_ITS ---
Exam(s) CT CHEST PE CTA EXAM: CT CHEST PE CTA CLINICAL HISTORY: hypoxia. TECHNIQUE: Imaging Protocol: CT angiography of the chest was performed using pulmonary embolus protocol. Multi planar reconstructions were performed. CONTRAST MATERIAL: Intravenous: Omnipaque 350 Contrast volume: 60 cc COMPARISON: CT CT CHEST LUNG CANCER SCREEN from 02/22/2024 FINDINGS: CHEST: PULMONARY ARTERIES: There are no obvious intraluminal filling defects to suggest acute pulmonary emboli. LUNGS: There is significant infiltrate in the right lower lobe. Lesser amount of infiltrate in left lower lobe. No pleural effusions. Small granuloma in the lateral left lung noted.. MEDIASTINUM: The esophagus is dilated and fluid-filled. Centimeter large hilar lymph nodes noted bilaterally. No adenopathy in the anterior mediastinal fat. CARDIAC: Heart size is upper normal. There is no pericardial effusion.Caliber of the thoracic aorta is within normal limits. No evidence of dissection. There is no significant shift of the interventricular septum. PARTIALLY VISUALIZED UPPERMOST ABDOMEN: No adrenal masses. There is evidence of prior bariatric surgery. OSSEOUS: No significant osseous lesions.No fractures.. IMPRESSION: 1. There is evidence of prior bariatric surgery. The esophagus is distended and fluid-filled. 2. There is significant consolidation-infiltrate in the right lower lobe and there are secretions noted in the right mainstem bronchus and bronchi. Suspect aspiration. There are no pleural effusions. 3. No evidence of pulmonary emboli. No evidence of aortic dissection nor pericardial effusion. Preliminary virtual Radiology report was reviewed RADIATION DOSE DELIVERED: 367.03mGy.cm Total DLP DATA REPOSITORY: All CT scans at this facility are submitted to the National Radiology Data Registry (NRDR) Dose Index Registry (DIR) with the [employer] (ACR). RADIATION OPTIMIZATION: All CT scans at this facility use at least one of these dose optimization techniques: automated exposure control; mA and/or kV adjustment per patient size (includes targeted exams where dose is matched to clinical indication); or iterative reconstruction.
--- NOTE | 2025-01-06 06:00 | RT.EKG_ITS ---
APPROVED REPORT Exam: Resting ECG Reason for Exam: hypoxia Patient Location: E HR:90 bpm ECG Measurements Heart Rate 90 AXIS GA [id number] P [id number] QRSd 93 QRS 75 QT 384 T 84 QTc 471 Conclusion Atrial fibrillation...V-rate 88- 91, irreg A-activity Borderline repol abnormality, diffuse leads...ST dep, T flat/neg, ant/lat/inf slightly prolonged QTc. No ST segment or T wave abnormalities to suggest occlusive TN.
--- NOTE | 2025-01-06 06:17 | W.ED.GENAD ---
Discharge Plan Discharge Details Chief Complaint: AMS/LOC Clinical Impression: Weakness, Altered mental status, Acute hypoxemic respiratory failure, Aspiration pneumonia, Elevated troponin Primary Care Provider: Jolly Davenport ED Provider: Tamar Levi [place] Meds and New Rx's Prescriptions: No Action fluoxetine 20 mg capsule 60 mg PO DAILY prazosin 5 mg capsule 5 mg PO QHS Incruse Ellipta 62.5 mcg/actuation blister with device 1 inh inhalation DAILY isosorbide mononitrate 30 mg tablet extended release 24 hr 30 mg PO DAILY (DME) Affirm Underwear Misc See Rx Instructions .Route Rx Instructions: As directed aspirin 81 mg tablet,delayed release (DR/EC) 81 mg PO DAILY fluticasone furoate-vilanterol [Breo Ellipta] 200-25 mcg/dose blister with device 1 inh inhalation DAILY docusate sodium 100 mg capsule 100 mg PO BID divalproex 125 mg capsule, delayed rel sprinkle See Rx Instructions PO HS Rx Instructions: 2 QAM and 3 HS orally bedtime; atorvastatin 40 mg Tablet 40 mg PO QPM ferrous sulfate [FeroSul] 325 mg (65 mg iron) tablet 325 mg PO DIRECTED Rx Instructions: 3 times weekly divalproex 250 mg Tablet Extended Release 24 Hr 250 mg PO QPM polyethylene glycol 3350 [Miralax] 17 gram Powder In Packet 17 g PO DAILY clonazepam [Klonopin] 0.5 mg Tablet 0.5 mg PO QPM cyanocobalamin (vitamin B-12) [Vitamin B-12] 1,000 mcg Tablet 1,000 mcg PO HS levothyroxine 50 mcg Tablet 50 mcg PO DAILY nitroglycerin 0.4 mg Tablet, Sublingual 0.4 mg SUBLINGUAL Q5M PRN Rx Instructions: do not exceed 3 doses per episode magnesium oxide 400 mg magnesium Tablet 400 mg PO QPM albuterol 90 mcg/actuation Aerosol 90 mcg INHALATION Q6H PRN PRN Culturelle 10 billion cell Capsule 1 cap PO DAILY cholecalciferol (vitamin D3) 25 mcg (1,000 unit) Tablet 75 mcg PO HS omeprazole 20 mg capsule,delayed release(DR/EC) 40 mg PO DAILY tizanidine 4 mg tablet 4 mg PO QHS trazodone 50 mg tablet 50 mg PO QHS acetaminophen 500 mg capsule 1,000 mg PO TID sennosides [senna] 8.6 mg tablet 17.2 mg PO DAILY calcium citrate 200 mg (950 mg) Tablet 250 mg PO DAILY tizanidine 2 mg capsule 2 mg PO Q8H PRNQty: 30 0RF bisacodyl 10 mg suppository 10 mg NH DAILY PRN fluoxetine 40 mg capsule 40 mg PO DAILY ondansetron 4 mg tablet,disintegrating 4 mg PO TID-QID PRN HPI General Mode of arrival: ambulatory. Date/Time Provider Initiated Documentation: 01/06/25 06:06. Limitations to Documentation: no limitations. Information obtained by: patient, EMS and old records reviewed. HPI Narrative: 64yo F with hx prior CVA with residual right sided deficits, CAD, asthma, presenting via EMS for episode of unresponsiveness. Per EMS, staff and nursing facility found her unresponsive at 0530 this morning. For EMS, was becoming alert on their arrival. O2 sat in the 80's while on 3L O2, placed on 10L NRB by EMS. Reportedly did get medication for sleep last night. Of note, her (same room in the nursing facility) came to the ED last night for vomiting and hypoxia and was admitted with suspected aspiration. Patient reports feeling 'tired', otherwise denies complaints. No pain anywhere including no headache. No nausea, vomiting, abdominal pain, diarrhea. She denies any chest pain, shortness of breath, or lightheadness. No fevers, chills, rash. Denies new weakness; states her right side and both legs are 'always weak'. She is otherwise in her usual state of health. Related Data Home Medications ?Medication ?Instructions ?Recorded ?Confirmed Lactobacillus rhamnosus GG 10 1 cap PO DAILY 09/16/22 01/06/25 billion cell capsule (Culturelle) albuterol 90 mcg/actuation aerosol 90 mcg inhalation Q6H PRN PRN 09/16/22 01/06/25 inhaler atorvastatin 40 mg tablet 40 mg PO QPM 09/16/22 01/06/25 cholecalciferol (vitamin D3) 25 75 mcg PO HS 09/16/22 01/06/25 mcg (1,000 unit) tablet clonazepam 0.5 mg tablet (Klonopin) 0.5 mg PO QPM 09/16/22 01/06/25 cyanocobalamin (vitamin B-12) 1,000 mcg PO HS 09/16/22 01/06/25 1,000 mcg tablet (Vitamin B-12) divalproex 250 mg tablet,extended 250 mg PO QPM 09/16/22 01/06/25 release 24 hr ferrous sulfate 325 mg (65 mg 325 mg PO DIRECTED 09/16/22 01/06/25 iron) tablet (FeroSul) levothyroxine 50 mcg tablet 50 mcg PO DAILY 09/16/22 01/06/25 magnesium oxide 400 mg PO QPM 09/16/22 01/06/25 nitroglycerin 0.4 mg sublingual 0.4 mg sublingual Q5M PRN 09/16/22 01/06/25 tablet polyethylene glycol 3350 17 gram 17 g PO DAILY 09/16/22 01/06/25 oral powder packet (Miralax) isosorbide mononitrate 30 mg 30 mg PO DAILY 10/11/22 01/06/25 tablet,extended release 24 hr aspirin 81 mg tablet,delayed 81 mg PO DAILY 05/24/24 01/06/25 release diaper,brief,adult,disposable 05/24/24 01/06/25 (Affirm Underwear) docusate sodium 100 mg capsule 100 mg PO BID 05/24/24 01/06/25 fluticasone furoate 200 1 inh inhalation DAILY 05/24/24 01/06/25 mcg-vilanterol 25 mcg/dose inhalation powder (Breo Ellipta) acetaminophen 500 mg capsule 1,000 mg PO TID 11/14/24 01/06/25 divalproex 125 mg capsule,delayed See Rx Instructions PO HS 11/14/24 01/06/25 release sprinkle fluoxetine 20 mg capsule 60 mg PO DAILY 11/14/24 01/06/25 omeprazole 20 mg capsule,delayed 40 mg PO DAILY 11/14/24 01/06/25 release prazosin 5 mg capsule 5 mg PO QHS 11/14/24 01/06/25 sennosides 8.6 mg tablet (senna) 17.2 mg PO DAILY 11/14/24 01/06/25 tizanidine 4 mg tablet 4 mg PO QHS 11/14/24 01/06/25 trazodone 50 mg tablet 50 mg PO QHS depression 11/14/24 01/06/25 umeclidinium 62.5 mcg/actuation 1 inh inhalation DAILY 11/14/24 01/06/25 blister powder for inhalation (Incruse Ellipta) calcium citrate 250 mg PO DAILY 12/05/24 01/06/25 tizanidine 2 mg capsule 2 mg PO Q8H PRN #30 caps 12/05/24 01/06/25 bisacodyl 10 mg rectal suppository 10 mg NH DAILY PRN 01/06/25 01/06/25 fluoxetine 40 mg capsule 40 mg PO DAILY 01/06/25 01/06/25 ondansetron 4 mg disintegrating 4 mg PO TID-QID PRN 01/06/25 01/06/25 tablet Previous Rx's ?Medication ?Instructions ?Recorded tizanidine 2 mg capsule 2 mg PO Q8H PRN #30 caps 12/05/24 Allergies Allergy/AdvReac Type Severity Reaction Status Date / Time morphine Allergy Unknown Verified 12/12/24 09:46 oxycodone Allergy Unknown Verified 12/12/24 09:46 prednisone Allergy Unknown Verified 12/12/24 09:46 sumatriptan (From Imitrex) Allergy Unknown Unverified 12/12/24 09:46 varenicline (From Chantix) Allergy Unknown Verified 12/12/24 09:46 General Stated Complaint: AMS/LOC GEOFFREY: 3 Review of Systems Narrative: see HPI Exam Narrative Exam Narrative: General: Alert, unwell appearing Head: Normocephalic, atraumatic Neck: Trachea midline, ?Neck supple. ENT: ?MMM.? Cardiac: ?RRR, no murmurs appreciated Resp: No increased WOB. Rhonchi. + cough Abd: ?Soft, non-distended, nontender : ?No suprapubic tenderness. No CVA tenderness. Extremities: ?No deformities.? No peripheral edema. Neuro: ? GCS 14 (E3 V5 M6)? PERRL.? EOMI.? Endentoulous with dysarthria. Motor- RUE: 3/5 LUE 4/5 RLE: 1/5 LLE 3 Coordination: No dysmetrria TN on left, insufficient strength on right Sensation- ?Intact to light touch and symmetric multiple dermatomes including upper and lower extremities CRANIAL NERVES: II: Pupils equal and reactive, III, IV, : EOM intact, no gaze preference or deviation, no nystagmus. V: normal sensation in V1, V2, and V3 segments bilaterally VII: no asymmetry, no nasolabial fold flattening VIII: hard of hearing IX, X: normal palatal elevation, no uvular deviation XI: 5/5 head turn and 5/5 shoulder shrug bilaterally XII: midline tongue protrusion Course Vital Signs Vital signs: Vital Signs Temperature 36.3 C L 01/06/25 05:56 Pulse 77 01/06/25 05:56 Respiratory Rate 18 01/06/25 05:56 Blood Pressure 91/62 L 01/06/25 05:56 Pulse Oximetry 96 01/06/25 05:56 Temperature 36.3 C L 01/06/25 05:56 Temperature Source Oral 01/06/25 05:56 Pulse 77 01/06/25 05:56 Respiratory Rate 18 01/06/25 06:01 Respiratory Effort Non-Labored 01/06/25 06:01 Blood Pressure 91/62 L 01/06/25 05:56 Pulse Oximetry 96 01/06/25 05:56 Oxygen Delivery Method Non-Rebreather 01/06/25 05:56 Oxygen Flow Rate 10 01/06/25 05:56 Pain Level 0 01/06/25 05:56 Medical Decision Making 64yo F with hx prior CVA with residual right sided deficits, CAD, asthma, presenting via EMS for episode of unresponsiveness. Per EMS, staff and nursing facility found her unresponsive at 0530 this morning, unknown last seen normal per EMS. For EMS, was becoming alert on their arrival. O2 sat in the 80's while on 3L O2, placed on 10L NRB by EMS. Of note, her (same room in the nursing facility) came to the ED last night for vomiting and hypoxia and was admitted with suspected aspiration. Patient denies complaints. Unclear what her baseline mental status and deficits are; on record review appears to at least be ambulatory typically. Soft blood pressure on arrival, vital signs otherwise reassuring. Transition from NRB to 6LNC and sat >92%. GCS 14 on exam, rhonchi, marked RUE and RLE weakness which is reportedly chronic (unknown degree) and 3/5 strength LLE which is likely new (though patient does report that both her legs are weak). Not a tpa candidate d/t wake up stroke. Will give 1L IVFB and albuterol neb, plan for labs and head/neck & chest CT. Attempted to contact nursing facility to further clarify LKN and baseline without success (phone not answered and no ability to leave voicemail). -EKG SR, slightly prolonged QTc, no ST segment or T wave abnormalities to suggest occlusive FL. -Labs reviewed as below, CBC with leukoctyosis to 15, CMP with no actionable abnormalities, Mg slightly low at 1.6 (oral replacement ordered), VBG with chronic respiratory acidosis with normal pH, normal lactate, ammonia normal,TSH normal, ETOH negative, initial troponin 132 (lower suspicion for [id number], will hold aspirin until after head CT). UA pending. Respiratory viral swab negative. -CT head and CTA chest ordered. CT head independently reviewed; no clear mass or ICH on my view. Radiology read pending. CTA chest with no large saddle emoblus on my view and does have bilateral infiltrate. With new oxygen requirement and leukocytosis, will send blood cultures and treat with ceftriaxone and vancomycin. Remains afebrile with normal HR. Signed out to oncoming physician, plan to followup imaging reads and teleneuro consult. Medical Records Medical records reviewed: Yes I reviewed the patient's medical records. Medical records narrative: majority of medical hx obtained from nursing facility notes Lab Data Lab results reviewed: Yes I reviewed the patient's lab results. Labs: 01/06/25 07:34 Blood Blood Culture - Pending 01/06/25 07:34 Blood Blood Culture - Pending Laboratory Tests Range/Units 01/06/25 01/06/25 01/06/25 06:10 06:36 06:37 WBC Cancelled 15.35 H RBC Cancelled 4.08 Hgb Cancelled 13.1 Hct Cancelled 41.2 MCV Cancelled 101 H MCH Cancelled 32.1 MCHC Cancelled 31.8 L RDW Cancelled 13.2 Plt Count Cancelled 176 MPV Cancelled 9.3 Immature Gran % Cancelled 0.3 Neutrophils % Cancelled 87.6 Band Neutrophils % Cancelled Lymphocytes % Cancelled 5.7 Atypical Lymphs % Cancelled Monocytes % Cancelled 5.9 Eosinophils % Cancelled 0.1 Basophils % Cancelled 0.4 Metamyelocytes % Cancelled Myelocytes % Cancelled Promyelocytes % Cancelled Other Cells % Cancelled Nucleated RBC % Cancelled 0.0 Absolute Neutrophils Cancelled 13.45 H Absolute Lymphocytes Cancelled 0.87 L Absolute Monocytes Cancelled 0.91 H Absolute Eosinophils Cancelled 0.02 Absolute Basophils Cancelled 0.06 RBC Morphology Cancelled Polychromasia Cancelled Hypochromasia Cancelled Poikilocytosis Cancelled Basophilic Stippling Cancelled Anisocytosis Cancelled Microcytosis Cancelled Macrocytosis Cancelled Spherocytes Cancelled Tear Drop Cells Cancelled Ovalocytes Cancelled Stomatocytes Cancelled Richard-[place] Bodies Cancelled Anjali Cells/Echinocytes Cancelled Acanthocytes (Spur) Cancelled Schistocytes Cancelled VBG pH (7.31-7.41) 7.38 VBG pCO2 (41-51) mmHg 53 H VBG pO2 mmHg 45 VBG HCO3 (23-28) mmol/L 31 H VBG Total CO2 (24-29) mmol/L 28 VBG O2 Saturation % 79 VBG Base Excess (-2-3) mmol/L 6 H VBG Lactate (<or=2.0) mmol/L 1.2 Sodium Cancelled 144 Potassium Cancelled 3.6 Chloride Cancelled 103 Carbon Dioxide Cancelled 33.1 H Anion Gap Cancelled 7.9 BUN Cancelled 26 H Creatinine Cancelled 0.5 L Est GFR (CKD-EPI 2020) Cancelled 104.67 Glucose Cancelled 121 H Calcium Cancelled 9.8 Magnesium Cancelled 1.6 L Total Bilirubin Cancelled 0.5 AST Cancelled 18 ALT Cancelled 30 Alkaline Phosphatase Cancelled 125 H Ammonia (11-32) umol/L 10 L Troponin I Cancelled 132 H* Total Protein Cancelled 6.5 Albumin Cancelled 3.5 TSH Cancelled 1.12 Ethyl Alcohol Cancelled < 3.0 COVID-19 Source Nasopharynx SARS-CoV-2 (PCR) (Negative) Negative Influenza Type A (PCR) (Negative) Negative Influenza Type B (PCR) (Negative) Negative RSV (PCR) (Negative) Negative Critical Care Time Critical Care Time Critical Care Time: Yes Total Critical Care Time: 32 Attestation: Due to a high probability of clinically significant, life threatening deterioration, the patient required my highest level of preparedness to intervene emergently and I personally spent this critical care time directly and personally managing the patient. This critical care time included obtaining a history; examining the patient; pulse oximetry; ordering and review of studies; arranging urgent treatment with development of a management plan; evaluation of patient's response to treatment; frequent reassessment; and, discussions with other providers. This critical care time was performed to assess and manage the high probability of imminent, life-threatening deterioration that could result in multi-organ failure. It was exclusive of separately billable procedures and treating other patients PFSH All Active Problems (Updated 01/06/25 @ 07:52 by Tamar Levi MD) Elevated troponin (Acute) Aspiration pneumonia (Acute) Acute hypoxemic respiratory failure (Acute) Altered mental status (Acute) Weakness (Acute) DNR (do not resuscitate) (Acute) See 11/14/24 COLST: DNR/DNI, yes transfer to the hospital and treat, use trial of antibiotics and IV fluids. No feeding tube. Osteoporosis (Chronic) Advanced care planning/counseling discussion (Acute) Ambulatory dysfunction (Acute) Bipolar 1 disorder (Acute) Anxiety and depression (Chronic) Fracture of right tibia and fibula (Acute) S/P IM FIXATION Fracture of left proximal fibula (Acute) Closed fracture of left distal tibia (Acute) Medical History (Updated 01/06/25 @ 07:52 by Tamar Levi MD) Palliative care encounter Chronic neck pain with history of cervical spinal surgery Smoker Migraine CAD (coronary artery disease) Prediabetes Cervical stenosis of spinal canal Asthma Surgical History (Updated 05/24/24 @ 13:19 by Cristela Zapata RN) History of cholecystectomy open H/O gastric bypass Stented coronary artery Social History Smoking/Tobacco Use Status: Current every day Tobacco Type: cigarettes Smoking risk assessment performed?: Yes Alcohol Intake: never Substance use type: marijuana Housing: assisted living facility Do you feel safe at home: Yes Do you feel safe in your relationship?: Yes
[2025-01-06 06:23] LABS: BE (Venous) 6 mmol/L (-2-3); HCO3 (Venous) 31 mmol/L (23-28); Lactate 1.2 mmol/L (<or=2.0); O2 Sat (Venous) 79 %; TCO2 (Venous) 28 mmol/L (24-29); pCO2 (Venous) 53 mmHg (41-51); pH (Venous) 7.38 (7.31-7.41); pO2 (Venous) 45 mmHg
[2025-01-06] MEDS: Albuterol 2.5 MG/3 ML INH SOLN VIAL UPD (06:37)
[2025-01-06] MEDS: Normal Saline 1,000 ML 1000 ML IV (06:41)
--- NOTE | 2025-01-06 06:45 | DI.CT_ITS ---
Exam(s) CT BRAIN NECK CTA EXAM: CT BRAIN NECK CTA CLINICAL HISTORY: R sided deficits (?chronic), new LLE weakness. TECHNIQUE: Imaging Protocol: Axial CT angiography was performed with multi- slice acquisition and multi-planar and/or 3D reconstructions. CONTRAST MATERIAL: Intravenous: Omnipaque 350 Contrast volume:70 mL COMPARISON: No exams were available for comparison FINDINGS: CTA Neck W: Aortic arch anatomy: The aortic arch anatomy is conventional and there is no significant stenosis at the origin of the great vessels off of the aortic arch. No intimal flap evident. Anterior circulation: Both common carotid arteries ascend with normal luminal diameters. At the level the carotid bulbs and proximal internal carotid arteries there is some partially calcified plaque bilaterally but no hemodynamically significant stenosis at this level. However, there appears to be some significant kinking and tortuosity in the proximal right internal carotid artery. Similar findings are not seen on the left side. Posterior circulation: Both vertebral arteries originate in conventional fashion off of the subclavian arteries and there is no obvious stenosis at the origin of the vertebral arteries. Both vertebral arteries exhibit normal luminal diameters within the foramen transversarium. No significant stenosis nor evidence of dissection. Both vertebral arteries contribute to the formation of the basilar artery at the skull base. CTA Brain W: Anterior circulation: Both internal carotid arteries are patent in the skull base-carotid canals as well as within the cavernous sinuses. The supraclinoid aspects of the ICAs are patent. The left A1 segment is dominant. Anterior cerebral arteries are patent and there is no evidence of aneurysm at the level the anterior communicating artery. Both middle cerebral arteries are patent with no evidence of significant stenosis nor intraluminal thrombus. There also no aneurysms of these vessels. Posterior circulation: The basilar artery ascends without significant stenosis.. Distally it gives off patent bilateral superior cerebellar arteries. Above this level the basilar artery terminates as a patent bilateral left posterior cerebral artery. The right posterior cerebral artery is fed by a posterior communicating artery on the right side of the [id number]. There is no evidence of aneurysm at the tip of the basilar artery nor elsewhere in the [id number]. CT BRAIN: There is no evidence of intracranial hemorrhage, mass effect, or shift of midline structures. There are no extra-axial fluid collections. Ventricles are not enlarged or shifted. There are no ring enhancing lesions in the brain and no abnormal meningeal enhancement. IMPRESSION: 1. There is significant tortuosity and kinking in the proximal right internal carotid artery in the neck. Less so on the left side. 2. Patent vertebral arteries. No evidence of stenosis nor dissection. 3. Patent intracranial arteries. Right posterior cerebral artery is incidentally noted to be fed by posterior communicating artery on the right side of the [id number] (persistent circulation). 4. No acute intracranial findings. No ring enhancing lesions in the brain. No aneurysms nor evidence of vascular malformation. Preliminary virtual Radiology report was reviewed RADIATION DOSE DELIVERED: 2,071.78mGy.cm Total DLP DATA REPOSITORY: All CT scans at this facility are submitted to the National Radiology Data Registry (NRDR) Dose Index Registry (DIR) with the [employer] (ACR). RADIATION OPTIMIZATION: All CT scans at this facility use at least one of these dose optimization techniques: automated exposure control; mA and/or kV adjustment per patient size (includes targeted exams where dose is matched to clinical indication); or iterative reconstruction.
[2025-01-06 06:50] LABS: Abs Immature Grans 0.04 10^3/uL (0.0-0.06); Absolute Basophil Count 0.06 10^3/uL (0.0-0.2); Absolute Eosinophil Count 0.02 10^3/uL (0.0-0.7); Absolute Neutrophil Count 13.45 10^3/uL (1.2-6.7); Basophils % 0.4 %; Eosinophils % 0.1 %; HCT 41.2 % (36.0-46.0); HGB 13.1 g/dL (11.2-15.7); Immature Grans % 0.3 %; Lymphocytes % 5.7 %; MCH 32.1 pg (27.0-33.0); MCHC 31.8 % (32.0-36.0); MCV 101 fL (80-95); MPV 9.3 fL (8.0-11.0); Monocytes % 5.9 %; Neutrophils % 87.6 %; Platelet Count 176 10^3/uL (130-400); RBC 4.08 10^6/uL (3.93-5.22); RDW 13.2 % (11.7-14.6); WBC 15.35 10^3/uL (4.4-10.8)
[2025-01-06 06:53] LABS: Absolute Lymphocyte Count 0.87 10^3/uL (1.2-3.4); Absolute Monocyte Count 0.91 10^3/uL (0.1-0.8)
[2025-01-06 06:56] LABS: Ammonia 10 umol/L (11-32)
[2025-01-06] MEDS: Omnipaque 350 MG/ML 100 ML BTL IJ (06:59)
[2025-01-06] MEDS: Normal Saline - Diluent 50 ML VIAL IJ ×2 (07:00→07:01)
[2025-01-06] MEDS: Omnipaque 350 MG/ML 50 ML BTL IJ (07:00)
[2025-01-06 07:11] LABS: ALT 30 U/L (14-59); AST 18 U/L (15-37); Albumin 3.5 g/dL (3.4-5.0); Alkaline Phosphatase 125 U/L (46-116); Anion Gap 7.9 mmol/L (3-11); BUN 26 mg/dL (7-18); Bilirubin, Total 0.5 mg/dL (0.2-1.0); CO2 33.1 mmol/L (21.0-32.0); CREATININE 0.5 mg/dL (0.55-1.02); Calcium 9.8 mg/dL (8.5-10.1); Chloride 103 mmol/L (98-107); ETHANOL BLOOD < 3.0 mg/dL (<10); Estimated GFR 104.67 (mL/min/1.73m2); Glucose 121 mg/dL (74-106); Magnesium 1.6 mg/dL (1.8-2.4); Potassium 3.6 mmol/L (3.5-5.1); Sodium 144 mmol/L (136-145); TSH (W/Ref FT4) 1.12 uIU/mL (0.36-3.74); Total Protein 6.5 g/dL (6.4-8.2)
[2025-01-06 07:16] LABS: Troponin I 132 ng/L (<or=51)
[2025-01-06 07:17] LABS: COVID-19 PCR Negative (Negative); Influenza A PCR Negative (Negative); Influenza B PCR Negative (Negative); RSV PCR Negative (Negative)
[2025-01-06 07:18] LABS: Source Nasopharynx
--- NOTE | 2025-01-06 07:24 | W.EDPROG ---
Date of service: 01/06/25 Time of Service: 07:24 Medical Decision Making I received signout on this 64-year-old DNI DNR female with prior CVA found unresponsive at 5:30 AM [facility] with hypoxia into the 80s on 2 L nasal cannula and left-sided weakness which appeared to be new. She is pending CT and teleneuro consultation. She was found to have a myocardial injury. Her scan shows no obvious intracranial hemorrhage so she will receive aspirin. 8:[address] angiogram head with no intracranial hemorrhage nor LVO. Delta troponin flat. Likely myocardial injury secondary to acute stress. In the absence of chest pain, will defer heparinization. She has new onset oxygen requirement and may have aspirated. She is received blood cultures and empiric coverage with ceftriaxone and vancomycin. 11:55 PM Late charting due to patient care. I was in touch with Dr. Ritchie from the hospitalist service. He graciously agreed to accept the patient for hospitalization. Quality:SDOH Health Related Social Needs: Health related social needs details Pt lives at [facility]. Discharge Plan Discharge Details Chief Complaint: AMS/LOC Clinical Impression: Weakness, Altered mental status, Acute hypoxemic respiratory failure, Aspiration pneumonia, Elevated troponin Admit Date/Time: 01/06/25 08:43 Admit Provider: Anthony Ritchie Attending Provider: Anthony Ritchie Primary Care Provider: Jolly Davenport ED Provider: Jose A Gonzalez
--- NOTE | 2025-01-06 07:38 | DI.VRAD_ITS ---
Addendum created by Stefania Harvey MD on 01/06/2025 7:41:50 AM EDT: THIS REPORT CONTAINS FINDINGS THAT MAY BE CRITICAL TO PATIENT CARE. The findings were verbally communicated via telephone conference with RONNY HARTMANN at 7:41 AM EDT on 01/06/2025. The findings were acknowledged and understood. Addendum created by Stefania Harvey MD on 01/06/2025 7:41:26 AM EDT: Not mentioned above: Right proximal humerus fracture, not seen on prior study. Stable lesion in the left humerus. Initial report created on 01/06/2025 7:38:23 AM EDT: PROCEDURE INFORMATION: Exam: CTA Chest With Contrast Exam date and time: 01/06/2025 7:15 AM Age: 64 years old Clinical indication: Other: Hypoxia TECHNIQUE: Imaging protocol: Computed tomographic angiography of the chest with contrast. Exam focused on the arteries. 3D rendering (Not supervised by radiologist): MIP and/or 3D reconstructed images were created by the technologist. Contrast material: OMNIPAQUE 350; Contrast volume: 70 ml; Contrast route: INTRAVENOUS (IV); COMPARISON: CT CHEST LUNG CANCER SCREEN 02/22/2024 8:57 AM FINDINGS: Limitations: Images are degraded due to artifact caused by patient motion and arm positioning. Pulmonary arteries: No definite pulmonary embolus identified, within the limitations noted above. Aorta: Atherosclerotic changes in the aorta and its branches. Lungs: Consolidation in the lower lobes [id number]. Secretions in the right lower lobe bronchi. Pleural spaces: No pleural effusion. Heart: No pericardial effusion. Coronary arteries: Coronary artery calcifications. Esophagus: Gas and fluid distension of the esophagus. Lymph nodes: No acute abnormality seen. Gallbladder and biliary ducts: Cholecystectomy. Adrenal glands: Mild adrenal thickening. Kidneys: Low attenuation lesions in the kidneys are too small to accurately characterize on CT. Stomach: Gastric surgery. Bones/joints: No acute pertinent abnormality seen. Soft tissues: No acute pertinent abnormality seen. IMPRESSION: 1. No definite pulmonary embolus identified, within the limitations noted above. 2. Dilated, fluid-filled esophagus. Secretions in right lower lobe bronchus. Consolidation in the lower lobes [id number]-left. Findings highly suggestive of aspiration with pneumonia. Follow-up to resolution advised. 3. Additional findings as above. Dictated and Authenticated by: Stefania Harvey MD. Orderin Gurmeet Boyle MD
[2025-01-06] MEDS: Aspirin 81 MG CHEW 324 MG CH (07:42)
[2025-01-06] MEDS: Magnesium Oxide 400 MG TAB (07:43)
[2025-01-06] MEDS: cefTRIAXone 2 GM/50 ML BAG IVPB (07:58)
[2025-01-06] MEDS: VANCOMYCIN/WATER (PEG) 1.5 GM/300 ML BAG IV (07:58)
--- NOTE | 2025-01-06 08:07 | DI.VRAD_ITS ---
PROCEDURE INFORMATION: Exam: CTA Head Without And With Contrast, Arteriography Exam date and time: 01/06/2025 6:58 AM Age: 64 years old Clinical indication: R sided deficits (? Chronic), new onset of left lower extremity weakness TECHNIQUE: Imaging protocol: Computed tomographic angiography of the head without and with contrast. Exam focused on the arteries. 3D rendering (Not supervised by radiologist): MIP and/or 3D reconstructed images were created by the technologist. Contrast material: OMNIPAQUE 350; Contrast volume: 70 ml; Contrast route: INTRAVENOUS (IV); COMPARISON: No relevant prior studies available. FINDINGS: Unenhanced images demonstrate no acute intracranial hemorrhage or mass effect. Subtle regions of decreased attenuation in subcortical white matter both frontal lobes may relate to mild chronic small-vessel disease. MR diffusion imaging could provide more sensitive and specific imaging for acute ischemia, if clinically warranted and feasible. Internal carotid: Intracranial segments of bilateral internal carotid arteries are patent without flow limiting stenosis. Anterior cerebral: Proximal anterior cerebral arteries bilaterally are patent without evidence of flow-limiting stenosis. Right A1 segment is mildly hypoplastic and there is a widely patent anterior communicating artery. Middle cerebral: Bilateral proximal middle cerebral arteries are patent without flow-limiting stenosis or occlusion. There is grossly symmetric appearance of branch vessels within the sylvian fissures. Posterior cerebral: Bilateral proximal posterior cerebral arteries are patent without flow-limiting stenosis or occlusion. origin right posterior cerebral artery from the right ICA with no conclusive evidence of a basilar origin P1 segment.. Vertebrobasilar: Basilar artery is patent without flow-limiting stenosis. Intracranial segments of both vertebral arteries are patent without flow-limiting stenosis. Venous sinuses: Major dural venous sinuses are patent without evidence of thrombus. IMPRESSION: 1. CTA head demonstrates no intracranial large vessel occlusion or flow-limiting stenosis. 2. Unenhanced CT images show no acute intracranial hemorrhage or mass effect. Small foci of decreased attenuation may relate to chronic small-vessel disease cervical MRI could provide more sensitive and specific assessment, if warranted and feasible. PROCEDURE INFORMATION: Exam: CTA Neck Without And With Contrast Exam date and time: 01/06/2025 6:58 AM Age: 64 years old Clinical indication: Other: R sided deficits (? Chronic), new lle weakness TECHNIQUE: Imaging protocol: Computed tomographic angiography of the neck without and with contrast. Exam focused on the cervical segments of the vasculature. 3D rendering (Not supervised by radiologist): MIP and/or 3D reconstructed images were created by the technologist. Contrast material: OMNIPAQUE 350; Contrast volume: 70 ml; Contrast route: INTRAVENOUS (IV); COMPARISON: No prior neck vascular imaging. FINDINGS: Aortic arch: No significant stenosis of the great vessels at their origins from the aortic arch. Right carotid: Minimal atherosclerotic calcifications at the bifurcation without flow-limiting stenosis. The proximal right ICA is tortuous with 2 prominent kinks. Left carotid: Minimal atherosclerotic calcifications at the bifurcation and proximal left ICA without significant stenosis. Left ICA is mildly tortuous proximal to the skull base. Left vertebral: Left vertebral artery is patent without flow-limiting stenosis or dissection. Right vertebral: Right vertebral artery is patent without evidence of flow-limiting stenosis or dissection. Soft tissues: No acute abnormality of the neck soft tissues is seen. There is considerable food in mildly dilated esophagus. There is also debris within the trachea and right mainstem bronchus. Prominent peribronchial thickening noted in the right upper lobe. Please note that the mid to lower lung zones are not imaged on this exam. CT chest performed and reported separately; please refer to that report for further details. Bones: Chronic multilevel cervical degenerative disc disease. Previous laminectomy and posterior instrumentation at C5-C6 IMPRESSION: 1. CTA Neck shows no occlusion or severe atherosclerotic stenosis of the extracranial cerebrovascular circulation. There are prominent kinks associated with vessel tortuosity in the proximal right ICA. 2. Food/fluid in dilated esophagus. Debris also noted within the distal trachea and right mainstem bronchus. Please see chest CT report for further details. REFERENCES: NASCET CRITERIA. The degree of stenosis in the cervical segment of the internal carotid artery is based on NASCET criteria. Normal is no stenosis. Mild is less than 50% stenosis. Moderate is 50-69% stenosis. Severe is 70% to 99% stenosis. Total occlusion is no detectable patent lumen. Dictated and Authenticated by: Lele Garcia MD. Orderin Gurmeet Boyle MD
[2025-01-06 08:08] LABS: Troponin I 131 ng/L (<or=51)
--- NOTE | 2025-01-06 09:26 | W.PC.ACHO ---
Registration Status: REG ER Primary Language: Preferred Language: ED Information & Data Chief Complaint AMS/LOC 01/06/25 06:19 Triage Note PT was found unresponsive at 01/06/25 05:56 0530. PT became semi responsive for EMS. PTs SPO2 % was in the 80s with 3 liters O2. Medical / Surgical History (Last Updated 11/15/24 @ 07:54 by Nilam Peralta RN) Palliative care encounter Chronic neck pain with history of cervical spinal surgery Smoker Migraine CAD (coronary artery disease) Prediabetes Cervical stenosis of spinal canal Asthma (Last Updated 05/24/24 @ 13:19 by Cristela Zapata RN) History of cholecystectomy H/O gastric bypass Stented coronary artery Most Recent Vital Signs Temperature 36.6 C 01/06/25 06:42 Temperature Source Rectal 01/06/25 06:42 Pulse 78 01/06/25 09:20 Pulse 78 01/06/25 09:20 Respiratory Rate 22 01/06/25 09:20 Respiratory Effort Non-Labored 01/06/25 06:01 Blood Pressure 103/60 01/06/25 09:16 Blood Pressure Mean 69 01/06/25 09:16 Pulse Oximetry 95 01/06/25 09:20 Oxygen Delivery Method Non-Rebreather 01/06/25 05:56 Oxygen Flow Rate 10 01/06/25 05:56 Pain Level 0 01/06/25 05:56 Comment 3L 01/06/25 08:20 Allergies morphine Allergy (Verified 12/12/24 09:46) Unknown oxycodone Allergy (Verified 12/12/24 09:46) Unknown prednisone Allergy (Verified 12/12/24 09:46) Unknown sumatriptan (From Imitrex) Allergy (Unverified 12/12/24 09:46) Unknown varenicline (From Chantix) Allergy (Verified 12/12/24 09:46) Unknown Active Medications Generic Name Dose Route Start Last Admin Trade Name Freq PRN Reason Stop Dose Admin Vancomycin/PEG/NADA/Lysine/Water 1.5 gm in 300 mls @ 200 mls/hr 01/06/25 08:00 01/06/25 07:58 Vancocin Injection IV 01/06/25 09:29 200 mls/hr NOW ONE Administration Iohexol 100 ml 01/06/25 07:00 06/15/25 06:59 Omnipaque 350 Mg/Ml 100 Ml Btl IJ 02/05/25 23:59 100 ml DIRECTED MARIA VICTORIA Administration Iohexol 50 ml 01/06/25 07:00 01/06/25 07:00 Omnipaque 350 Mg/Ml 50 Ml Btl IJ 02/05/25 23:59 50 ml DIRECTED MARIA VICTORIA Administration Sodium Chloride 50 ml 01/06/25 07:00 01/06/25 07:01 Normal Saline - Diluent 50 Ml Vial IJ 50 ml .FOR DI USE MARIA VICTORIA Administration IV IV Catheter Type [Left Upper Peripheral IV arm] IV Catheter Type [Left Saline Lock Antecubital] IV Catheter Gauge [Left Upper 18 arm] IV Catheter Gauge [Left 18 Antecubital] Diet Orders Category Date Time Status Regular/Normal [DIET] Nutrition 01/06/25 Lunch Active Diagnostics 01/06/25 01/06/25 01/06/25 Range/Units 07:39 07:39 06:37 WBC 15.35 H RBC 4.08 Hgb 13.1 Hct 41.2 MCV 101 H MCH 32.1 MCHC 31.8 L RDW 13.2 Plt Count 176 MPV 9.3 Immature Gran % 0.3 Neutrophils % 87.6 Band Neutrophils % Lymphocytes % 5.7 Atypical Lymphs % Monocytes % 5.9 Eosinophils % 0.1 Basophils % 0.4 Metamyelocytes % Myelocytes % Promyelocytes % Other Cells % Nucleated RBC % 0.0 Absolute Neutrophils 13.45 H Absolute Lymphocytes 0.87 L Absolute Monocytes 0.91 H Absolute Eosinophils 0.02 Absolute Basophils 0.06 RBC Morphology Polychromasia Hypochromasia Poikilocytosis Basophilic Stippling Anisocytosis Microcytosis Macrocytosis Spherocytes Tear Drop Cells Ovalocytes Stomatocytes [place] Bodies Anjali Cells/Echinocytes Acanthocytes (Spur) Schistocytes VBG pH (7.31-7.41) VBG pCO2 (41-51) mmHg VBG pO2 mmHg VBG HCO3 (23-28) mmol/L VBG Total CO2 (24-29) mmol/L VBG O2 Saturation % VBG Base Excess (-2-3) mmol/L VBG Lactate (<or=2.0) mmol/L Sodium 144 Potassium 3.6 Chloride 103 Carbon Dioxide 33.1 H Anion Gap 7.9 BUN 26 H Creatinine 0.5 L Est GFR (CKD-EPI 2020) 104.67 Glucose 121 H Calcium 9.8 Magnesium 1.6 L Total Bilirubin 0.5 AST 18 ALT 30 Alkaline Phosphatase 125 H Ammonia 10 L (11-32) umol/L Troponin I Pending 131 H* 132 H* Total Protein 6.5 Albumin 3.5 TSH 1.12 Ethyl Alcohol < 3.0 COVID-19 Source SARS-CoV-2 (PCR) (Negative) Influenza Type A (PCR) (Negative) Influenza Type B (PCR) (Negative) RSV (PCR) (Negative) 01/06/25 01/06/25 Range/Units 06:36 06:10 WBC Cancelled RBC Cancelled Hgb Cancelled Hct Cancelled MCV Cancelled MCH Cancelled MCHC Cancelled RDW Cancelled Plt Count Cancelled MPV Cancelled Immature Gran % Cancelled Neutrophils % Cancelled Band Neutrophils % Cancelled Lymphocytes % Cancelled Atypical Lymphs % Cancelled Monocytes % Cancelled Eosinophils % Cancelled Basophils % Cancelled Metamyelocytes % Cancelled Myelocytes % Cancelled Promyelocytes % Cancelled Other Cells % Cancelled Nucleated RBC % Cancelled Absolute Neutrophils Cancelled Absolute Lymphocytes Cancelled Absolute Monocytes Cancelled Absolute Eosinophils Cancelled Absolute Basophils Cancelled RBC Morphology Cancelled Polychromasia Cancelled Hypochromasia Cancelled Poikilocytosis Cancelled Basophilic Stippling Cancelled Anisocytosis Cancelled Microcytosis Cancelled Macrocytosis Cancelled Spherocytes Cancelled Tear Drop Cells Cancelled Ovalocytes Cancelled Stomatocytes Cancelled [place] Bodies Cancelled Anjali Cells/Echinocytes Cancelled Acanthocytes (Spur) Cancelled Schistocytes Cancelled VBG pH 7.38 (7.31-7.41) VBG pCO2 53 H (41-51) mmHg VBG pO2 45 mmHg VBG HCO3 31 H (23-28) mmol/L VBG Total CO2 28 (24-29) mmol/L VBG O2 Saturation 79 % VBG Base Excess 6 H (-2-3) mmol/L VBG Lactate 1.2 (<or=2.0) mmol/L Sodium Cancelled Potassium Cancelled Chloride Cancelled Carbon Dioxide Cancelled Anion Gap Cancelled BUN Cancelled Creatinine Cancelled Est GFR (CKD-EPI 2020) Cancelled Glucose Cancelled Calcium Cancelled Magnesium Cancelled Total Bilirubin Cancelled AST Cancelled ALT Cancelled Alkaline Phosphatase Cancelled Ammonia (11-32) umol/L Troponin I Cancelled Total Protein Cancelled Albumin Cancelled TSH Cancelled Ethyl Alcohol Cancelled COVID-19 Source Nasopharynx SARS-CoV-2 (PCR) Negative (Negative) Influenza Type A (PCR) Negative (Negative) Influenza Type B (PCR) Negative (Negative) RSV (PCR) Negative (Negative) 01/06/25 07:51 Blood Culture - Pending Blood 01/06/25 07:39 Blood Culture - Pending Blood Intake and Output - 24 Hour Total 01/06/25 05:40 thru 01/06/25 08:53 Weight 70.1 kg Falls Risk Assessment History of Falls No History 01/06/25 06:01 Contributing Factors Confusion 01/06/25 06:01 Ambulatory Aids Uses ambulatory device 01/06/25 06:01 Tubes/Lines None 01/06/25 06:01 Gait Evaluation W/no contributing factors 01/06/25 06:01 Cognition Cognitive impairment 01/06/25 06:01 Fall Total Score 43 01/06/25 06:01 Level of Risk Moderate Risk 01/06/25 06:01 v v v v v v v v v Sending and/or Receiving Nurses: Please use comment section below to note any information pertinent to the patient hand-off not included above. Information / Comments: paged at [phone] and report called for at [phone]. L 18 G AC. Pt is on 3 L oxygen and sating 88-93%. Report received from: Tamar Patel ED RN
[2025-01-06 09:59] LABS: Troponin I 159 ng/L (<or=51)
[2025-01-06] MEDS: Enoxaparin 40 MG/0.4 ML SYR SC (10:58)
--- NOTE | 2025-01-06 12:12 | INITIAL_ITS ---
Care Management Initial Assmt Functional Status/Living Situation Patient Presentation: Jeannie was lying in bed, when CM arrived. She presented to the ED with the chief complaint of AMS/LOC. Jeannie is currently living at [facility], in the same room as her - Brandon. Patient appears to have desire to communicate, however, when verbalizing, her communications were effortful and unintelligible, to this abstract writer. Speech and PT consults were requested. The following information is from Abbie, at [facility] (Weekend supervisor respiratory). At baseline, Jeannie communicates effectively and advocates for her own and her husbands wants and needs, with no speech interuptions. She has a FWW, but primarily uses a WC, in the facility. Darron call stated, Jeannie has not always been a reliable historian. CM will conintue to follow. Town of Residence: [facility] Resides with: Other ([facility] ) Significant Other/Family: Out of area Caregiver/Guardian: [facility] Instrumental Activities of Daily Living (ADLs): Requires support Activities/Hobbies/SocialSupport: Spending time with her - Brandon. Medications Medication Management: No Issues/Barriers identified Physical Functioning/Mobility Assistive Device: Has a FWW at the facility but per facility uses a WC typically. Advance Directives Advance Directives: Do you have an Advance Directive: Y , 09:47 AD On File at [facility]: Y 01/08/23, 09:47 Date Asked 08/10/24 08/10/24, 08:22 AD Date Reviewed 12/05/24 12/05/24, 15:20 COLST On File at [facility] COLST Date Scanned Code Status Resuscitation Status DNR/DNI Portal Pt does not currently have a portal and education provided: No Insurance Coverage/Financial Issues Insurance: Medicare Part A & B - [id number] Medicaid [facility] - [id number] Care Team Visit Care Team Role Provider Type Jolly Davenport Primary Care Provider ADV PRACTICE REGISTERED NURSE Avril Siegel Other Providers WOODYARD CRANE OPERATOR Cassidy Jameson Other Providers WOODYARD CRANE OPERATOR Jolly Lovett Other Providers WOODYARD CRANE OPERATOR Cheyenne Charlton RN Other Providers WOODYARD CRANE OPERATOR Ayana Ritchie Other Providers WOODYARD CRANE OPERATOR Jose A Gonzalez MD Emergency Provider [facility] STAFF PHYSICIAN Anthony Ritchie MD Admit Provider [facility] STAFF PHYSICIAN Attending Provider Discharge Potential Discharge Needs: PT Evaluation, PCP F/U Appt and Other (Palliative) Anticipated Barriers to Discharge: Medical Status Patient/Family Education Needs: Review discharge instructions, discuss Ask Me Three Transportation: RCT Plan: Anticipate, Jeannie will return to [facility] where she resides, once medically ready. She will follow up with her facility providers, palliative, and plan of care. Jeannie will be transported via RCT vs. EMS. CM will continue to follow. Social Determinants of Health Screening Will the Patient Participate in the Screening?: Unable to obtain Health Related Social Needs Health related social needs details: Pt lives at [facility]. [facility] All Active Problems (Updated 01/06/25 @ 07:52 by Tamar Levi MD) Elevated troponin (Acute) Aspiration pneumonia (Acute) Acute hypoxemic respiratory failure (Acute) Altered mental status (Acute) Weakness (Acute) DNR (do not resuscitate) (Acute) See 11/14/24 COLST: DNR/DNI, yes transfer to the hospital and treat, use trial of antibiotics and IV fluids. No feeding tube. Osteoporosis (Chronic) Advanced care planning/counseling discussion (Acute) Ambulatory dysfunction (Acute) Bipolar 1 disorder (Acute) Anxiety and depression (Chronic) Fracture of right tibia and fibula (Acute) S/P IM FIXATION Fracture of left proximal fibula (Acute) Closed fracture of left distal tibia (Acute) Medical History (Updated 01/06/25 @ 07:52 by Tamar Levi MD) Palliative care encounter Chronic neck pain with history of cervical spinal surgery Smoker Migraine CAD (coronary artery disease) Prediabetes Cervical stenosis of spinal canal Asthma Surgical History (Updated 05/24/24 @ 13:19 by Cristela Zapata RN) History of cholecystectomy open H/O gastric bypass Stented coronary artery Social History Smoking/Tobacco Use Status: Current every day Tobacco Type: cigarettes Smoking risk assessment performed?: Yes Alcohol Intake: never Substance use type: marijuana Housing: retirement Do you feel safe at home: Yes Do you feel safe in your relationship?: Yes Readmission Within the Past 30 Days Yes or No: No
[2025-01-06] MEDS: Normal Saline 1,000 ML 100 ML IV (12:54)
[2025-01-06] MEDS: Acetaminophen 500 MG TAB 1000 MG PO ×2 (14:05→20:27)
--- NOTE | 2025-01-06 15:28 | W.PM.HP.N ---
Date of service: 01/06/25 Time of Service: 15:28 Assessment and Plan Assessment and plan (1) Elevated troponin: Status: Acute Assessment and plan: repeat troponins and ekg in am. Pt is asymptomatic. Most likely demand ischemia (2) Fracture of right tibia and fibula: Status: Acute Assessment and plan: mentioned as an addendum in the ct note today. Will d/w in house radiology to see if this is a chronic vs new findings. Will d/w Ortho pending this result (3) Altered mental status: Status: Acute Assessment and plan: Pt does respond to verbal stimuli but not always most appropriately. Monitor for improvements (4) Aspiration pneumonia: Status: Acute Assessment and plan: will order zosyn and vanc and will stop vanc if mrsa swab is negative (5) H/O gastric bypass: Assessment and plan: add thiamine dvtp with lovenox History of Present Illness History of Present Illness Chief Complaint: unresponsive Narrative: 64-year-old female with a known history of CVA and is currently living at a local long term facility was found to be unresponsive this morning around 530. Workup in the ED was significant for hypoxia as well as due to left-sided weakness and radiograms which are indicative of aspiration pneumonia. CT on admission for the head was negative for intracranial hemorrhage. Of note the patient was not on Plavix at the long term facility as far as I can tell. The patient was on a daily aspirin. My discussion with the patient she is somewhat confused but is alert to person and place but not time. Patient does not give a linear history. Review of Systems Unobtainable due to mental condition PFSH All Active Problems (Updated 01/06/25 @ 07:52 by Tmaar Levi MD) Elevated troponin (Acute) Aspiration pneumonia (Acute) Acute hypoxemic respiratory failure (Acute) Altered mental status (Acute) Weakness (Acute) DNR (do not resuscitate) (Acute) See 11/14/24 COLST: DNR/DNI, yes transfer to the hospital and treat, use trial of antibiotics and IV fluids. No feeding tube. Osteoporosis (Chronic) Advanced care planning/counseling discussion (Acute) Ambulatory dysfunction (Acute) Bipolar 1 disorder (Acute) Anxiety and depression (Chronic) Fracture of right tibia and fibula (Acute) S/P IM FIXATION Fracture of left proximal fibula (Acute) Closed fracture of left distal tibia (Acute) Medical History (Updated 01/06/25 @ 07:52 by Tamar Levi MD) Palliative care encounter Chronic neck pain with history of cervical spinal surgery Smoker Migraine CAD (coronary artery disease) Prediabetes Cervical stenosis of spinal canal Asthma Surgical History (Updated 05/24/24 @ 13:19 by Cristela Zapata RN) History of cholecystectomy open H/O gastric bypass Stented coronary artery Social History Smoking/Tobacco Use Status: Current every day Tobacco Type: cigarettes Smoking risk assessment performed?: Yes Alcohol Intake: never Substance use type: marijuana Housing: long term Do you feel safe at home: Yes Do you feel safe in your relationship?: Yes Meds Allergies and Home Medications Allergies Allergy/AdvReac Type Severity Reaction Status Date / Time morphine Allergy Unknown Verified 12/12/24 09:46 oxycodone Allergy Unknown Verified 12/12/24 09:46 prednisone Allergy Unknown Verified 12/12/24 09:46 sumatriptan (From Imitrex) Allergy Unknown Unverified 12/12/24 09:46 varenicline (From Chantix) Allergy Unknown Verified 12/12/24 09:46 Home Medications ?Medication ?Instructions ?Recorded ?Confirmed ?Type Lactobacillus rhamnosus GG 10 1 cap PO DAILY 09/16/22 01/06/25 History billion cell capsule (Culturelle) albuterol 90 mcg/actuation aerosol 90 mcg inhalation Q6H PRN PRN 09/16/22 01/06/25 History inhaler atorvastatin 40 mg tablet 40 mg PO QPM 09/16/22 01/06/25 History cholecalciferol (vitamin D3) 25 75 mcg PO HS 09/16/22 01/06/25 History mcg (1,000 unit) tablet clonazepam 0.5 mg tablet (Klonopin) 0.5 mg PO QPM 09/16/22 01/06/25 History cyanocobalamin (vitamin B-12) 1,000 mcg PO HS 09/16/22 01/06/25 History 1,000 mcg tablet (Vitamin B-12) ferrous sulfate 325 mg (65 mg 325 mg PO DIRECTED 09/16/22 01/06/25 History iron) tablet (FeroSul) levothyroxine 50 mcg tablet 50 mcg PO DAILY 09/16/22 01/06/25 History magnesium oxide 400 mg PO QPM 09/16/22 01/06/25 History nitroglycerin 0.4 mg sublingual 0.4 mg sublingual Q5M PRN 09/16/22 01/06/25 History tablet polyethylene glycol 3350 17 gram 17 g PO DAILY 09/16/22 01/06/25 History oral powder packet (Miralax) isosorbide mononitrate 30 mg 30 mg PO DAILY 10/11/22 01/06/25 History tablet,extended release 24 hr aspirin 81 mg tablet,delayed 81 mg PO DAILY 05/24/24 01/06/25 History release diaper,brief,adult,disposable 05/24/24 01/06/25 History (Affirm Underwear) docusate sodium 100 mg capsule 100 mg PO BID 05/24/24 01/06/25 History fluticasone furoate 200 1 inh inhalation DAILY 05/24/24 01/06/25 History mcg-vilanterol 25 mcg/dose inhalation powder (Breo Ellipta) acetaminophen 500 mg capsule 1,000 mg PO TID 11/14/24 01/06/25 History fluoxetine 20 mg capsule 20 mg PO DAILY 11/14/24 01/06/25 History omeprazole 20 mg capsule,delayed 40 mg PO DAILY 11/14/24 01/06/25 History release prazosin 5 mg capsule 5 mg PO QHS 11/14/24 01/06/25 History sennosides 8.6 mg tablet (senna) 17.2 mg PO DAILY 11/14/24 01/06/25 History tizanidine 4 mg tablet 4 mg PO QHS 11/14/24 01/06/25 History trazodone 50 mg tablet 50 mg PO QHS depression 11/14/24 01/06/25 History umeclidinium 62.5 mcg/actuation 1 inh inhalation DAILY 11/14/24 01/06/25 History blister powder for inhalation (Incruse Ellipta) calcium citrate 250 mg PO DAILY 12/05/24 01/06/25 History bisacodyl 10 mg rectal suppository 10 mg OK DAILY PRN 01/06/25 01/06/25 History divalproex 125 mg tablet,delayed See Rx Instructions PO .COMPLEX 01/06/25 01/06/25 History release fluoxetine 40 mg capsule 40 mg PO DAILY 01/06/25 01/06/25 History ondansetron 4 mg disintegrating 4 mg PO TID-QID PRN 01/06/25 01/06/25 History tablet tizanidine 2 mg tablet 2 mg PO Q8H PRN PRN 01/06/25 01/06/25 History Exam Narrative Exam Narrative: HEENT-normocephalic atraumatic mucous membranes moist oropharynx is clear Neck-no lymphadenopathy no JVD no thyromegaly Cardiovascular-no murmur rubs or gallops Lungs-decreased breath sounds right lower lobe Abdomen-soft nontender nondistended bowel sounds active Neurologic-cranial nerves II through XII intact as tested reflexes in upper extremity normal as tested symmetrical smile noted she does have 4-5 weakness in the right lower extremity but this is a known deficit Musculoskeletal-patient cannot reach her right hand overhead Results Labs 01/06/25 06:37 01/06/25 06:37 Labs: Laboratory Results - last 24 hr 01/06/25 01/06/25 01/06/25 06:10 06:36 06:37 WBC Cancelled 15.35 H RBC Cancelled 4.08 Hgb Cancelled 13.1 Hct Cancelled 41.2 MCV Cancelled 101 H MCH Cancelled 32.1 MCHC Cancelled 31.8 L RDW Cancelled 13.2 Plt Count Cancelled 176 MPV Cancelled 9.3 Immature Gran % Cancelled 0.3 Neutrophils % Cancelled 87.6 Band Neutrophils % Cancelled Lymphocytes % Cancelled 5.7 Atypical Lymphs % Cancelled Monocytes % Cancelled 5.9 Eosinophils % Cancelled 0.1 Basophils % Cancelled 0.4 Metamyelocytes % Cancelled Myelocytes % Cancelled Promyelocytes % Cancelled Other Cells % Cancelled Nucleated RBC % Cancelled 0.0 Absolute Neutrophils Cancelled 13.45 H Absolute Lymphocytes Cancelled 0.87 L Absolute Monocytes Cancelled 0.91 H Absolute Eosinophils Cancelled 0.02 Absolute Basophils Cancelled 0.06 RBC Morphology Cancelled Polychromasia Cancelled Hypochromasia Cancelled Poikilocytosis Cancelled Basophilic Stippling Cancelled Anisocytosis Cancelled Microcytosis Cancelled Macrocytosis Cancelled Spherocytes Cancelled Tear Drop Cells Cancelled Ovalocytes Cancelled Stomatocytes Cancelled Richard-Mulberry Bodies Cancelled Anjali Cells/Echinocytes Cancelled Acanthocytes (Spur) Cancelled Schistocytes Cancelled VBG pH 7.38 VBG pCO2 53 H VBG pO2 45 VBG HCO3 31 H VBG Total CO2 28 VBG O2 Saturation 79 VBG Base Excess 6 H VBG Lactate 1.2 Sodium Cancelled 144 Potassium Cancelled 3.6 Chloride Cancelled 103 Carbon Dioxide Cancelled 33.1 H Anion Gap Cancelled 7.9 BUN Cancelled 26 H Creatinine Cancelled 0.5 L Est GFR (CKD-EPI 2020) Cancelled 104.67 Glucose Cancelled 121 H Calcium Cancelled 9.8 Magnesium Cancelled 1.6 L Total Bilirubin Cancelled 0.5 AST Cancelled 18 ALT Cancelled 30 Alkaline Phosphatase Cancelled 125 H Ammonia 10 L Troponin I Cancelled 132 H* Total Protein Cancelled 6.5 Albumin Cancelled 3.5 TSH Cancelled 1.12 Ethyl Alcohol Cancelled < 3.0 COVID-19 Source Nasopharynx SARS-CoV-2 (PCR) Negative Influenza Type A (PCR) Negative Influenza Type B (PCR) Negative RSV (PCR) Negative 01/06/25 01/06/25 07:39 09:31 WBC RBC Hgb Hct MCV MCH MCHC RDW Plt Count MPV Immature Gran % Neutrophils % Band Neutrophils % Lymphocytes % Atypical Lymphs % Monocytes % Eosinophils % Basophils % Metamyelocytes % Myelocytes % Promyelocytes % Other Cells % Nucleated RBC % Absolute Neutrophils Absolute Lymphocytes Absolute Monocytes Absolute Eosinophils Absolute Basophils RBC Morphology Polychromasia Hypochromasia Poikilocytosis Basophilic Stippling Anisocytosis Microcytosis Macrocytosis Spherocytes Tear Drop Cells Ovalocytes Stomatocytes Richard-Mulberry Bodies [place] Cells/Echinocytes Acanthocytes (Spur) Schistocytes VBG pH VBG pCO2 VBG pO2 VBG HCO3 VBG Total CO2 VBG O2 Saturation VBG Base Excess VBG Lactate Sodium Potassium Chloride Carbon Dioxide Anion Gap BUN Creatinine Est GFR (CKD-EPI 2020) Glucose Calcium Magnesium Total Bilirubin AST ALT Alkaline Phosphatase Ammonia Troponin I 131 H* 159 H* Total Protein Albumin TSH Ethyl Alcohol COVID-19 Source SARS-CoV-2 (PCR) Influenza Type A (PCR) Influenza Type B (PCR) RSV (PCR) Last Vital Signs Temp 35.7 C L 01/06/25 11:13 Pulse 69 01/06/25 11:13 Resp 16 01/06/25 11:13 BP 108/95 H 01/06/25 11:13 Pulse Ox 94 01/06/25 11:13 Time Spent Time spent with Patient: 40-54 minutes Time was spent: preparing to see the patient(eg.review tests), obtaining and/or reviewing separately otained hiistory, ordering medications,tests, procedures, referring, communicating with other health acute care physician, indepentently interpreting results, counseling the patient and care coordination
[2025-01-06] MEDS: PIPERACILLIN/TAZO 3.375 GM in Normal Saline 50 ML IVPB ×2 (16:13→23:21)
[2025-01-06 17:47] LABS: MRSA PCR Negative (Negative)
[2025-01-06 18:09] LABS: Bilirubin Negative (Negative); Blood Negative (Negative); Clarity Clear (Clear); Glucose Negative (Negative); Ketones Trace mg/dL (Negative); Leukocyte Esterase Negative (Negative); Nitrite Negative (Negative); Urobilinogen 0.2 mg/dL (Up to 0.2); pH 5.5 (5-8)
[2025-01-06] MEDS: Budesonide/Formoterol 160/4.5 6 GM 60 PUFF INH IH (19:45)
[2025-01-06] MEDS: Prazosin 5 MG CAP PO (20:26)
[2025-01-06] MEDS: Cyanocobalamin 500 MCG TAB 1000 MCG PO (20:27)
[2025-01-06] MEDS: Docusate Sodium 100 MG CAP PO (20:27)
[2025-01-06] MEDS: Cholecalciferol (Vitamin D3) 1,000 UNIT TAB 3000 UNITS PO (20:28)
[2025-01-06] MEDS: traZODone 50 MG TAB PO (20:29)
[2025-01-06] MEDS: Atorvastatin 40 MG TAB PO (20:29)
[2025-01-06] MEDS: clonazePAM 0.5 MG TAB PO (20:29)
[2025-01-06] MEDS: Magnesium Gluconate 500 MG TAB 1000 MG PO (20:55)
[2025-01-06] MEDS: Divalproex 125 MG TABEC 375 MG PO (20:56)
--- NOTE | 2025-01-07 | DI.MRI_ITS ---
Exam(s) MR BRAIN WO EXAM: MR BRAIN WO CLINICAL HISTORY: possible cva TECHNIQUE: Multiplanar multisequence MRI of the brain was performed. COMPARISON: CT CT BRAIN NECK CTA from 01/06/2025 FINDINGS: The examination is limited due to patient motion artifact. VENTRICLES AND EXTRA AXIAL SPACES: Normal in size and morphology for the patient's age. MIDLINE SHIFT: None. CEREBRAL PARENCHYMA: No focus of restricted diffusion to suggest acute infarct. No space-occupying lesion identified. There are scattered foci of hyperintense signal seen on the T2 and FLAIR images in the white matter most consistent with chronic microvascular ischemic disease. HEMORRHAGE: None. BRAINSTEM/CEREBELLUM: Normal. CALVARIUM: Normal. VISUALIZED PARANASAL SINUSES/MASTOIDS:Clear. SQUAXIN OF MENARD: Normal flow void. PITUITARY GLAND: Unremarkable. OTHER FINDINGS: None. IMPRESSION: 1. The examination is limited due to patient motion artifact. 2. No evidence of an acute infarct. 3. Age-related cerebral atrophy and chronic microvascular ischemic disease. DATA REPOSITORY:
[2025-01-07] MEDS: Normal Saline 1,000 ML 100 ML IV ×3 (00:15→23:09)
[2025-01-07] MEDS: PIPERACILLIN/TAZO 3.375 GM in Normal Saline 50 ML IVPB ×4 (05:34→23:09)
[2025-01-07] MEDS: Levothyroxine 50 MCG TAB PO (05:40)
[2025-01-07 07:11] LABS: Abs Immature Grans 0.05 10^3/uL (0.0-0.06); Absolute Basophil Count 0.05 10^3/uL (0.0-0.2); Absolute Lymphocyte Count 1.38 10^3/uL (1.2-3.4); Absolute Monocyte Count 0.66 10^3/uL (0.1-0.8); Basophils % 0.4 %; Eosinophils % 0.4 %; HCT 36.2 % (36.0-46.0); HGB 11.2 g/dL (11.2-15.7); Immature Grans % 0.4 %; Lymphocytes % 12.2 %; MCH 31.5 pg (27.0-33.0); MCHC 30.9 % (32.0-36.0); MCV 102 fL (80-95); MPV 9.6 fL (8.0-11.0); Monocytes % 5.8 %; Neutrophils % 80.8 %; Platelet Count 163 10^3/uL (130-400); RBC 3.56 10^6/uL (3.93-5.22); RDW 13.7 % (11.7-14.6); RDW-SD 51.6 fL; WBC 11.31 10^3/uL (4.4-10.8)
[2025-01-07 07:15] VITALS: BP 157/79; PULSE 84; RESP 16; TEMP 36.6; O2SAT 89
[2025-01-07 07:25] LABS: Absolute Eosinophil Count 0.05 10^3/uL (0.0-0.7); Absolute Neutrophil Count 9.14 10^3/uL (1.2-6.7)
[2025-01-07 07:36] LABS: ALT 25 U/L (14-59); AST 16 U/L (15-37); Albumin 2.5 g/dL (3.4-5.0); Alkaline Phosphatase 99 U/L (46-116); Anion Gap 5.8 mmol/L (3-11); BUN 18 mg/dL (7-18); Bilirubin, Total 0.4 mg/dL (0.2-1.0); CO2 33.2 mmol/L (21.0-32.0); CREATININE 0.5 mg/dL (0.55-1.02); Calcium 8.5 mg/dL (8.5-10.1); Chloride 109 mmol/L (98-107); Estimated GFR 104.67 (mL/min/1.73m2); Glucose 93 mg/dL (74-106); Potassium 3.3 mmol/L (3.5-5.1); Sodium 148 mmol/L (136-145); Total Protein 5.3 g/dL (6.4-8.2); Vancomycin, Random 5.3 ug/mL
[2025-01-07 07:39] LABS: Troponin I 373 ng/L (<or=51)
[2025-01-07] MEDS: Umeclidinium 7 CAP INHALER 1 CAP IH (07:51)
[2025-01-07] MEDS: Budesonide/Formoterol 160/4.5 6 GM 60 PUFF INH IH ×2 (07:51→20:35)
--- NOTE | 2025-01-07 08:00 | RT.EKG_ITS ---
APPROVED REPORT Exam: Resting ECG Reason for Exam: elevated troponins Patient Location: I HR:76 bpm ECG Measurements Heart Rate 76 AXIS AL 129 P 25 QRSd 84 QRS 44 QT 450 T -3 QTc 507 Conclusion Sinus rhythm...normal P axis, V-rate 60- 99 Low voltage, extremity leads...all extremity leads <0.5mV Nonspecific T abnormalities, anterior leads...T <-0.10mV, V2-V4 Prolonged QT interval...QTc >500mS
--- NOTE | 2025-01-07 09:04 | PDOC.CMPRO ---
Date of service: 01/07/25 Time of Service: 09:04 Care Management Progress Note Progress Note Text Progress Note Text: Jeannie is admitted for AMS and aspiration pneumonia and is being treated with IV ABX. She resides a [facility] with her Srikanth (whom is also admitted as a patient.) Pt was lying in bed and appeared to be resting comfortably when CM attempted to meet with her; nursing was present and reported that Jeannie had a Reiki session earlier in the day and has been drowsy since. Per RN, Jeannie's speech is garbled in the morning and becomes more clear as the day goes on. Her sister Kyra from [facility] is in the area visiting and reported to CM that her sister does not have any verbal or AMS deficits at baseline. CM will continue to follow. Discharge Potential Discharge Needs: Consult Consult Services Needed: Palliative and PCP F/U Appt Anticipated Barriers to Discharge: Medical Status Patient/Family Education Needs: Review discharge instructions, discuss Ask Me Three Transportation: RCT Plan: Jeannie will return to [facility] where she resides, once medically ready. She will follow up with her facility providers, palliative, and plan of care. Jeannie will be transported via RCT vs. CM will continue to follow. Social Determinants of Health Screening Will the Patient Participate in the Screening?: Unable to obtain Health Related Social Needs Health related social needs details: Pt lives at [facility].
[2025-01-07] MEDS: Omeprazole 20 MG CAPCR 40 MG PO (09:45)
[2025-01-07] MEDS: Polyethylene Glycol 3350 17 GM PACKET PO (09:45)
[2025-01-07] MEDS: Lactobacillus Acidophilus CAP 1 CAP PO (09:45)
[2025-01-07] MEDS: Acetaminophen 500 MG TAB 1000 MG PO ×2 (09:45→20:53)
[2025-01-07] MEDS: Aspirin E.C. 81 MG TABEC PO (09:46)
[2025-01-07] MEDS: FLUoxetine 20 MG CAP 60 MG PO (09:47)
[2025-01-07] MEDS: Calcium Citrate 950 MG TAB PO (09:47)
[2025-01-07] MEDS: Divalproex 125 MG TABEC 250 MG PO (09:47)
[2025-01-07] MEDS: Senna TAB 1 TAB PO (09:47)
[2025-01-07] MEDS: Docusate Sodium 100 MG CAP PO ×2 (09:48→20:56)
[2025-01-07] MEDS: Ferrous Sulfate 325 MG TAB PO (09:48)
[2025-01-07] MEDS: Isosorbide Mononitrate 30 MG TABCR PO (09:48)
[2025-01-07] MEDS: Normal Saline Flush 10 ML SYR IVP (10:49)
[2025-01-07] MEDS: Enoxaparin 40 MG/0.4 ML SYR SC (10:57)
[2025-01-07 11:20] VITALS: BP 124/72; PULSE 74; RESP 16; TEMP 36.6; O2SAT 88
--- NOTE | 2025-01-07 11:21 | NUR.NOTE ---
Nursing Note: Reviewed documentation by Raven Belle, student TIGER MACHINE OPERATOR. Agree with her findings.
--- NOTE | 2025-01-07 12:25 | PGE_ITS ---
Date of Service Date of service: 01/07/25 Time of Service: 12:25 Assessment and Plan Assessment and plan (1) Elevated troponin: Status: Acute Assessment and plan: repeat troponins and ekg in am. Pt is asymptomatic. Most likely demand ischemia 01/07/25 EKG negative times 2. No chest pain. Troponin are trending up 132/131/159/373 Recheck in am and if still increasing will consult cardiology (2) Fracture of right tibia and fibula: Status: Acute Assessment and plan: mentioned as an addendum in the ct note today. Will d/w in house radiology to see if this is a chronic vs new findings. Will d/w Ortho pending this result 01/07/25 Notes reviewed from Ortho (Demetra) 12/12/24 which mentions conservative treatment for now and reimaging in 2 months from the date of the note (3) Altered mental status: Status: Acute Assessment and plan: Pt does respond to verbal stimuli but not always most appropriately. Monitor for improvements 01/07/25 resolved (4) Aspiration pneumonia: Status: Acute Assessment and plan: will order zosyn and vanc and will stop vanc if mrsa swab is negative 01/07/25 ST to see today, await input and recommendations (5) H/O gastric bypass: Assessment and plan: add thiamine dvtp with lovenox Subjective Subjective Interval history since last seen: Pt seen and examined in her room this am. Pt does appear to have improving mentation. Exam Narrative Exam Narrative: HEENT-normocephalic atraumatic mucous membranes moist oropharynx is clear Neck-no lymphadenopathy no JVD no thyromegaly Cardiovascular-no murmur rubs or gallops Lungs-decreased breath sounds right lower lobe Abdomen-soft nontender nondistended bowel sounds active Neurologic-cranial nerves II through XII intact as tested reflexes in upper extremity normal as tested symmetrical smile noted she does have 4-5 weakness in the right lower extremity but this is a known deficit Musculoskeletal-patient cannot reach her right hand overhead Objective Last Vital Signs Temp 36.6 C 01/07/25 11:20 Pulse 74 01/07/25 11:20 Resp 16 01/07/25 11:20 BP 124/72 01/07/25 11:20 Pulse Ox 88 L 01/07/25 11:20 Laboratory Results - last 24 hr 0601/06/25 01/07/25 15:25 17:47 06:10 WBC 11.31 H RBC 3.56 L Hgb 11.2 Hct 36.2 MCV 102 H MCH 31.5 MCHC 30.9 L RDW 13.7 Plt Count 163 MPV 9.6 Immature Gran % 0.4 Neutrophils % 80.8 Lymphocytes % 12.2 Monocytes % 5.8 Eosinophils % 0.4 Basophils % 0.4 Nucleated RBC % 0.0 Absolute Neutrophils 9.14 H Absolute Lymphocytes 1.38 Absolute Monocytes 0.66 Absolute Eosinophils 0.05 Absolute Basophils 0.05 Sodium 148 H Potassium 3.3 L Chloride 109 H Carbon Dioxide 33.2 H Anion Gap 5.8 BUN 18 Creatinine 0.5 L Est GFR (CKD-EPI 2020) 104.67 Glucose 93 Calcium 8.5 Total Bilirubin 0.4 AST 16 ALT 25 Alkaline Phosphatase 99 Troponin I 373 H* Total Protein 5.3 L Albumin 2.5 L Urine Color Yellow Urine Clarity Clear Urine pH 5.5 Ur Specific [place] 1.010 Urine Protein Negative Urine Ketones Trace H Urine Blood Negative Urine Nitrite Negative Urine Bilirubin Negative Urine Urobilinogen 0.2 Ur Leukocyte Esterase Negative Urine Glucose Negative Random Vancomycin 5.3 MRSA (TEM-PCR) Negative Time Spent with Patient Time Spent with Patient: 25-34 minutes Time was spent: preparing to see the patient(eg.review tests), obtaining and/or reviewing separately otained hiistory, ordering medications,tests, procedures, referring, communicating with other health foster care therapist, indepentently interpreting results, counseling the patient and care coordination
--- NOTE | 2025-01-07 12:51 | W.SPSTE ---
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 They had previously lived at [facility] but moved to [facility] due to increasing mobility issues for her and increasing frequency of falls. Jeannie was found unresponsive by staff at rehab facility and brought to [facility] ED. Initially there were concerns for CVA due to AMS and altered speech, but CT and MRI were negative. She was found with hypoxia and suspected aspiration pneumonia on chest x-rays. Notable chest x-ray results from date of admission as below: CHEST CT 01/06/25: IMPRESSION: 1. There is evidence of prior bariatric surgery. The esophagus is distended and fluid-filled. 2. There is significant consolidation-infiltrate in the right lower lobe and there are secretions noted in the right mainstem bronchus and bronchi. Suspect aspiration. There are no pleural effusions. 3. No evidence of pulmonary emboli. No evidence of aortic dissection nor pericardial effusion. HEMATOLOGY ONCOLOGY CONSULTANT IMPRESSIONS & RECOMMENDATIONS: Jeannie was contacted initially this date in the morning but was too somnolent and difficult to rouse, unable to provide audible verbal responses to HEMATOLOGY ONCOLOGY CONSULTANT questions/orientation. She was revisited later during noon meal and was much more alert and responses were appropriate. Speech was very quiet, but comprehensible at a close distance with reminders to speak up. She endorses frequent reflux and believes she is on a PPI at baseline. She endorses difficulty chewing (edentulous) and swallowing dry/tough solid foods such as chicken. She localizes pharyngeal stasis to approximately level of valleculae. When provided with small/bite sized textures with extra moisture, her tolerance improved significantly. She did not demonstrate any s/sx aspiration throughout the exam and tolerated 1-2 sips of liquid at a time without cough, throat clear. Voice remained dry and clear throughout exam. She belches intermittently throughout the exam. She appears very weak throughout the exam, has difficulty with fine control/lining strap closer even with her strong hand, and as such requires 1:1 feeding. She is unable to lift her weak extremity (R arm) high enough for self-feeding, endorses this is baseline from remote CVA. Given s/sx reported/observed, and imaging results from this admission, there is strong likelihood of reflux component if she does indeed have aspiration pneumonia. While she does seem to have some difficulty tolerating dry solids, I do not suspect this is a major contributor to aspiration risk. HEMATOLOGY ONCOLOGY CONSULTANT will continue to follow given fluctuating ability to participate throughout the day and reports of similar variability from nursing, to ensure consistent diet tolerance of current recommended diet. Diet recommendation and aspiration precautions are as below to reduce pharyngeal stasis, reduce risk of prandial and post-prandial aspiration. FURTHER INPATIENT HEMATOLOGY ONCOLOGY CONSULTANT SERVICES: Patient to be followed while on unit x1-2 to ensure consistent diet tolerance. Consider MBSS if repeat PNA's occurr. Suggested Referrals/Consults: Gastroenterology Occupational Therapy DISCHARGE RECOMMENDATIONS: Recommend HEMATOLOGY ONCOLOGY CONSULTANT services at [facility] for carry-over of aspiration precautions/diet recommendations. Diet Recommendations: ? SOLIDS: 6-Soft & Bite-Sized Solids - extra moisture/sauce/gravy added LIQUIDS: 0-Thin Liquids MEDICATIONS: Whole vs Crushed as tolerated With 0-Thin Liquids Alter medications only as advised by MD or Pharmacist RISK MANAGEMENT: Level of Assistance/Supervision: 1:1Assistive feeding only by trained staff/family Positioning and environment: PO intake only when awake/alert? Reduce auditory and/or visual distractions when eating As upright as tolerated, use HOB controls/bed tilt to achieve upright positioning Oral hygiene Before/after PO intake Using friction with toothbrush/swab on all oral structures as tolerated Strategies/Adaptations/Assistive Equipment: Small sips Small bites Extra swallows as needed to clear pharyngeal stasis Alternate intake of liquids and solids Reflux Precautions: Small+frequent meals throughout day Maintain fully upright position at least 30 minutes after meals Avoid meals/snacks 2-3 hours prior to reclining/sleeping Sleep with head of bed elevated to reduce likelihood of nocturnal reflux Education Provided to: Nursing Patient Topics Addressed: anatomy/physiology of swallowing mechanism definition and impacts of aspiration impact of current diagnoses on swallow function role of HEMATOLOGY ONCOLOGY CONSULTANT in management of swallow disorders overt s/sx to monitor for re: potential aspiration of food / liquids relationship between reflux, GERD and swallow fxn relationship between respiratory function and deglutition rationale and instruction for additional risk management strategies as above SUBJECTIVE: Patient received: Initially somnolent, difficult to rouse, later alert/awake. Agreeable to evaluation. Pain Reported n/a Baseline Swallow Function: Patient reports reflux, pharyngeal stasis especially for dry solids (e.g., chicken, bread), and difficulty chewing due to edentulousness. Denies frequent s/sx aspiration or sensation of aspiration (~1x weekly or less). OBJECTIVE Patient positioning: As upright as possible using HOB/bed tilt controls Oral care: Completed by HEMATOLOGY ONCOLOGY CONSULTANT following meal. 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 Speech: Low volume/air reserve but not formally tested, focused on dysphagia this date. Will continue to screen speech in following visits. Comprehensible at close distance. Oral Mechanism Examination: Dentition: Edentulous, no dentures. Pt reports she plans to get dentures soon. Oral mucosa: WFL ? Cranial Nerve Assessment: CN V ? Trigeminal Facial Sensation WNL Jaw Strength/ROM WNL ?WNL CN VII- Facial WNL labial ROM, strength, coordination. WNL lingual sensation WNL CN IX ? Glossopharyngeal WNL palatal elevation with phonation. No evidence of nasal emissions WNL CN X ? Vagus WNL Vocal quality and volume. Strong/sharp volitional cough WNL CX XII ? Hypoglossal WNL lingual ROM, coordination, mild reduced lateral strength to resistance mild PO Intake: Trials Assessed: IDDSI 0 Thin Liquids IDDSI 6 Soft & Bite Size Solid IDDSI 7 Regular Solid Oral Phase Findings: Difficulty chewing Residue (diffuse mild lingual for dry textures) Pharyngeal Phase Findings: Endorsed stasis? Esophageal Phase Findings ??Belching observed ? Friona Swallow Protocol Results: PASS Complete/uninterrupted without s/sx aspiration PLAN: Frequency: 2-3x/week until goals met Goals: [employer] Combination Teacher Goals: Patient will remain free from aspiration-related illness, malnutrition, and dehydration. Patient/family will verbalize comprehension of education provided re:dysphagia, strategies to maximize functioning, and role of ST. Short Term Goals: Patient will tolerate Soft/Bite Size Diet and Thin liquids without overt s/s aspiration across 2/2 visits. Patient/caregivers will be independent with implementation of aspiration precautions as indicated across 1-2 visits.
[2025-01-07 15:37] VITALS: BP 140/75; PULSE 78; RESP 16; TEMP 36.7; O2SAT 85
[2025-01-07] MEDS: Acetaminophen 325 MG TAB PO (15:48)
[2025-01-07 19:41] VITALS: BP 106/66; PULSE 67; RESP 19; TEMP 37.4; O2SAT 94
[2025-01-07 20:00] VITALS: PULSE 78
[2025-01-07] MEDS: Divalproex 125 MG TABEC 375 MG PO (20:51)
[2025-01-07] MEDS: Cyanocobalamin 500 MCG TAB 1000 MCG PO (20:54)
[2025-01-07] MEDS: Prazosin 5 MG CAP PO (20:55)
[2025-01-07] MEDS: POTASSIUM CHLORIDE 20 MEQ, POTASSIUM CHLORIDE 10 MEQ 30 MEQ PO (20:56)
[2025-01-07] MEDS: clonazePAM 0.5 MG TAB PO (20:57)
[2025-01-07] MEDS: Cholecalciferol (Vitamin D3) 1,000 UNIT TAB 3000 UNITS PO (20:57)
[2025-01-07] MEDS: Atorvastatin 40 MG TAB PO (20:57)
[2025-01-07] MEDS: traZODone 50 MG TAB PO (21:14)
[2025-01-07 23:11] VITALS: BP 98/61; PULSE 63; RESP 20; TEMP 36.3; O2SAT 89
[2025-01-08 03:28] VITALS: BP 116/73; PULSE 66; RESP 19; TEMP 37.2; O2SAT 91
[2025-01-08] MEDS: PIPERACILLIN/TAZO 3.375 GM in Normal Saline 50 ML IVPB ×2 (04:59→11:08)
[2025-01-08] MEDS: Levothyroxine 50 MCG TAB PO (05:30)
[2025-01-08 07:07] LABS: Abs Immature Grans 0.04 10^3/uL (0.0-0.06); Absolute Basophil Count 0.04 10^3/uL (0.0-0.2); Absolute Eosinophil Count 0.16 10^3/uL (0.0-0.7); Absolute Lymphocyte Count 1.43 10^3/uL (1.2-3.4); Absolute Monocyte Count 0.72 10^3/uL (0.1-0.8); Absolute Neutrophil Count 8.19 10^3/uL (1.2-6.7); Basophils % 0.4 %; Eosinophils % 1.5 %; HCT 31.7 % (36.0-46.0); Immature Grans % 0.4 %; Lymphocytes % 13.5 %; MCH 32.2 pg (27.0-33.0); MCHC 31.5 % (32.0-36.0); MCV 102 fL (80-95); MPV 9.5 fL (8.0-11.0); Monocytes % 6.8 %; Neutrophils % 77.4 %; Platelet Count 157 10^3/uL (130-400); RBC 3.11 10^6/uL (3.93-5.22); RDW 13.8 % (11.7-14.6); RDW-SD 51.9 fL; WBC 10.58 10^3/uL (4.4-10.8)
[2025-01-08 07:15] LABS: ALT 20 U/L (14-59); AST 11 U/L (15-37); Albumin 2.1 g/dL (3.4-5.0); Alkaline Phosphatase 80 U/L (46-116); Anion Gap 3.4 mmol/L (3-11); BUN 15 mg/dL (7-18); Bilirubin, Total 0.4 mg/dL (0.2-1.0); CO2 31.6 mmol/L (21.0-32.0); CREATININE 0.4 mg/dL (0.55-1.02); Calcium 8.7 mg/dL (8.5-10.1); Chloride 111 mmol/L (98-107); Estimated GFR 110.45 (mL/min/1.73m2); Glucose 92 mg/dL (74-106); Potassium 3.9 mmol/L (3.5-5.1); Sodium 146 mmol/L (136-145); Total Protein 4.8 g/dL (6.4-8.2)
[2025-01-08 07:23] LABS: Troponin I 124 ng/L (<or=51)
[2025-01-08 07:49] VITALS: BP 139/83; PULSE 66; RESP 18; TEMP 37.1; O2SAT 90
[2025-01-08] MEDS: Divalproex 125 MG TABEC 250 MG PO (07:59)
[2025-01-08] MEDS: FLUoxetine 20 MG CAP 60 MG PO (08:00)
[2025-01-08] MEDS: POTASSIUM CHLORIDE 20 MEQ, POTASSIUM CHLORIDE 10 MEQ 30 MEQ PO (08:00)
[2025-01-08] MEDS: Aspirin E.C. 81 MG TABEC PO (08:00)
[2025-01-08] MEDS: Acetaminophen 500 MG TAB 1000 MG PO (08:00)
[2025-01-08] MEDS: Calcium Citrate 950 MG TAB PO (08:00)
[2025-01-08] MEDS: Omeprazole 20 MG CAPCR 40 MG PO (08:00)
[2025-01-08] MEDS: Isosorbide Mononitrate 30 MG TABCR PO (08:00)
[2025-01-08] MEDS: Magnesium Gluconate 500 MG TAB 1000 MG PO (08:01)
[2025-01-08] MEDS: Docusate Sodium 100 MG CAP PO (08:01)
[2025-01-08] MEDS: Lactobacillus Acidophilus CAP 1 CAP PO (08:01)
[2025-01-08] MEDS: Senna TAB 1 TAB PO (08:01)
[2025-01-08] MEDS: Budesonide/Formoterol 160/4.5 6 GM 60 PUFF INH IH (08:35)
[2025-01-08] MEDS: Umeclidinium 7 CAP INHALER 1 CAP IH (08:36)
--- NOTE | 2025-01-08 10:07 | PDOC.CMDIS ---
Date of service: 01/08/25 Time of Service: 10:08 LACE Index Scoring Tool Questions: Length of Stay (in days): 2 Was the patient admitted via the E.D.?: Yes E.D. 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 Follow up with community/facility providers and discharge plan of care as directed. Transportation will be via [facility]. Patient/Family Education Needs: Review discharge instructions and plan to return to SNF. Review ask me 3. Services Needed at Discharge: Long Term Facility (Resident of [facility]) and Transportation ([facility]) SDOH Health Related Social Needs: Health related social needs details Pt lives at [facility]. Health related social needs details: Pt lives at [facility].
[2025-01-08] MEDS: Enoxaparin 40 MG/0.4 ML SYR SC (11:08)
--- NOTE | 2025-01-08 13:31 | DSE_ITS ---
Date of service: 01/08/25 Time of Service: 13:31 DS: Diagnosis Discharge Diagnosis (1) Elevated troponin: Status: Acute (2) Fracture of right tibia and fibula: Status: Acute (3) Altered mental status: Status: Acute (4) Aspiration pneumonia: Status: Acute (5) H/O gastric bypass: Discharge Plan Disposition [facility] Condition: Stable Discharge Details Reason For Visit: CVA Admit Date/Time: 01/06/25 08:43 Admit Provider: Anthony Ritchie Attending Provider: Anthony Ritchie Primary Care Provider: Jolly Davenport Hospital Course Hospital Course: Patient was originally admitted for concerns about a CVA. CT and MRI were not indicative CVA. CT of the chest did indicate a possible aspiration pneumonia though. Patient was treated for aspiration pneumonia. Over the ensuing 48 to 72 hours her mentation improved remarkably and on the she has to be discharged back to the snf facility. She will go home on [facility] for another 7 days. I have attached her MRI CTA and chest CT to the bottom of this document for completeness. Blood cultures are negative at 48 hours. White count on admission was 15 and is currently 10.58. She is noted to have mild anemia which may be worked up in the outpatient setting. She also elevated MCV. Renal function appears within normal limits she did have mild elevations in her troponins but no chest pain EKGs were within normal limits. Speech therapy evaluation was also performed while she was here and will have further evaluation and treatment in the snf environment. History of Present Illness History of Present Illness Chief Complaint: unresponsive Narrative: 64-year-old female with a known history of CVA and is currently living at a local snf facility was found to be unresponsive this morning around 530. Workup in the ED was significant for hypoxia as well as due to left-sided weakness and radiograms which are indicative of aspiration pneumonia. CT on admission for the head was negative for intracranial hemorrhage. Of note the patient was not on Plavix at the snf facility as far as I can tell. The patient was on a daily aspirin. My discussion with the patient she is somewhat confused but is alert to person and place but not time. Patient does not give a linear history. Assessment and Plan Assessment and plan (1) Elevated troponin: Status: Acute Assessment and plan: repeat troponins and ekg in am. Pt is asymptomatic. Most likely demand ischemia (2) Fracture of right tibia and fibula: Status: Acute Assessment and plan: mentioned as an addendum in the ct note today. Will d/w in house radiology to see if this is a chronic vs new findings. Will d/w Ortho pending this result (3) Altered mental status: Status: Acute Assessment and plan: Pt does respond to verbal stimuli but not always most appropriately. Monitor for improvements (4) Aspiration pneumonia: Status: Acute Assessment and plan: will order zosyn and vanc and will stop vanc if mrsa swab is negative (5) H/O gastric bypass: Assessment and plan: add thiamine dvtp with lovenox MRI 01/07/25 MPRESSION: 1. The examination is limited due to patient motion artifact. 2. No evidence of an acute infarct. 3. Age-related cerebral atrophy and chronic microvascular ischemic disease. CTA 01/06/25 MPRESSION: 1. CTA head demonstrates no intracranial large vessel occlusion or flow-limiting stenosis. 2. Unenhanced CT images show no acute intracranial hemorrhage or mass effect. Small foci of decreased attenuation may relate to chronic small-vessel disease cervical MRI could provide more sensitive and specific assessment, if warranted and feasible. CT CHEST IMPRESSION: 1. No definite pulmonary embolus identified, within the limitations noted above. 2. Dilated, fluid-filled esophagus. Secretions in right lower lobe bronchus. Consolidation in the lower lobes [id number]. Findings highly suggestive of aspiration with pneumonia. Follow-up to resolution advised. 3. Additional findings as above. Home Meds and New Rx's Prescriptions: New potassium chloride 15 mEq Tablet,Er Particles/Crystals 30 meq PO BID 10 Days Qty: 40 0RF amoxicillin-pot clavulanate 875-125 mg tablet 1 tab PO BID 7 Days Qty: 14 0RF Continued fluoxetine 20 mg capsule 20 mg PO DAILY Rx Instructions: total dose 60 mg daily prazosin 5 mg capsule 5 mg PO QHS Incruse Ellipta 62.5 mcg/actuation blister with device 1 inh inhalation DAILY isosorbide mononitrate 30 mg tablet extended release 24 hr 30 mg PO DAILY aspirin 81 mg tablet,delayed release (DR/EC) 81 mg PO DAILY fluticasone furoate-vilanterol [Breo Ellipta] 200-25 mcg/dose blister with device 1 inh inhalation DAILY docusate sodium 100 mg capsule 100 mg PO BID atorvastatin 40 mg Tablet 40 mg PO QPM ferrous sulfate [FeroSul] 325 mg (65 mg iron) tablet 325 mg PO DIRECTED Rx Instructions: 3 times weekly polyethylene glycol 3350 [Miralax] 17 gram Powder In Packet 17 g PO DAILY clonazepam [Klonopin] 0.5 mg Tablet 0.5 mg PO QPM cyanocobalamin (vitamin B-12) [Vitamin B-12] 1,000 mcg Tablet 1,000 mcg PO HS levothyroxine 50 mcg Tablet 50 mcg PO DAILY nitroglycerin 0.4 mg Tablet, Sublingual 0.4 mg SUBLINGUAL Q5M PRN Rx Instructions: do not exceed 3 doses per episode magnesium oxide 400 mg magnesium Tablet 400 mg PO QPM albuterol 90 mcg/actuation Aerosol 90 mcg INHALATION Q6H PRN PRN Culturelle 10 billion cell Capsule 1 cap PO DAILY cholecalciferol (vitamin D3) 25 mcg (1,000 unit) Tablet 75 mcg PO HS omeprazole 20 mg capsule,delayed release(DR/EC) 40 mg PO DAILY tizanidine 4 mg tablet 4 mg PO QHS acetaminophen 500 mg capsule 1,000 mg PO TID sennosides [senna] 8.6 mg tablet 17.2 mg PO DAILY calcium citrate 200 mg (950 mg) Tablet 250 mg PO DAILY bisacodyl 10 mg suppository 10 mg NC DAILY PRN fluoxetine 40 mg capsule 40 mg PO DAILY ondansetron 4 mg tablet,disintegrating 4 mg PO TID-QID PRN tizanidine 2 mg tablet 2 mg PO Q8H PRN PRN divalproex 125 mg tablet,delayed release (DR/EC) See Rx Instructions PO .COMPLEX Rx Instructions: 2-3 tabs orally bid; orally; 2 tabs AM, 3 tabs PM No Action (DME) Affirm Underwear Misc See Rx Instructions .Route Rx Instructions: As directed trazodone 50 mg tablet 50 mg PO QHS Discharge Instructions Stand Alone Forms: Nursing Discharge Form Referrals: Jolly Davenport [Primary Care Provider, Medicine] Referral Note: follow up in 5-7 days Activity:: Activity as Tolerated Equipment/Supplies:: No Equipment Needed Diet:: As Tolerated Discharge Orders Discharge Orders: Discharge Order (Routine); Ordered 01/08/25 Ordered By: Anthony Ritchie DS: Summary Time Spent with Patient providing and/or coordinating discharge services: Greater than 30 minutes Status at Discharge Functional status at discharge: independent ambulation Overall status at discharge: patient is back to baseline Mental Status: mental status grossly normal Speech and Movement: speech and movement normal Mood: congruent mood Affect: normal affect Quality:SDOH Health Related Social Needs: Health related social needs details Pt lives at [facility]. Health related social needs details: Pt lives at [facility]. Exam Narrative Exam Narrative: HEENT-normocephalic atraumatic mucous membranes moist oropharynx is clear Neck-no lymphadenopathy no JVD no thyromegaly Cardiovascular-no murmur rubs or gallops Lungs-decreased breath sounds right lower lobe Abdomen-soft nontender nondistended bowel sounds active Neurologic-cranial nerves II through XII intact as tested reflexes in upper extremity normal as tested symmetrical smile noted she does have 4-5 weakness in the right lower extremity but this is a known deficit Musculoskeletal-patient cannot reach her right hand overhead much more alert today. Psych Mental Status: mental status grossly normal Speech and Movement: speech and movement normal Mood: congruent mood Affect: normal affect DS: Data Vitals/I&O Vitals and I&O: Vital Signs Temperature 37.1 C 01/08/25 07:49 Temperature Source Temporal Artery Scan 01/08/25 07:49 Pulse 66 01/08/25 07:49 Pulse Rhythm Regular 01/06/25 10:05 Pulse 78 01/06/25 09:20 Respiratory Rate 18 01/08/25 07:49 Respiratory Effort Normal, Non-Labored 01/06/25 10:05 Respiratory Depth Normal 01/06/25 10:05 Respiratory Pattern Normal 01/06/25 10:05 Blood Pressure 139/83 01/08/25 07:49 Blood Pressure Mean 101 01/08/25 07:49 Pulse Oximetry 90 L 01/08/25 07:49 Oxygen Delivery Method Room Air 01/08/25 07:49 Oxygen Flow Rate 0 01/08/25 07:49 Pain Level 5 01/08/25 03:28 Comment 3L 01/06/25 08:20 Intake & Output 01/07/25 01/08/25 01/08/25 23:59 11:59 23:59 Intake Total 2100 / 2200 1200 / 1200 Output Total 350 / 550 350 / 350 Balance 1750 / 1650 1200 / 850 -350 / 850 Weight 25 kg Intake: IV 2100 / 2200 1100 / 1100 Oral 100 / 100 Output: Urine 350 / 550 350 / 350 Other: Urine Color Yellow Yellow Urine Appearance Clear Urine Odor Normal Normal Comment pT denies needing to urinate at this time Data Completed and Pending Labs on day of discharge: Labs from last 24 hours 01/08/25 06:11 WBC 10.58 RBC 3.11 L Hgb 10.0 L Hct 31.7 L MCV 102 H MCH 32.2 MCHC 31.5 L RDW 13.8 Plt Count 157 MPV 9.5 Immature Gran % 0.4 Neutrophils % 77.4 Lymphocytes % 13.5 Monocytes % 6.8 Eosinophils % 1.5 Basophils % 0.4 Nucleated RBC % 0.0 Absolute Neutrophils 8.19 H Absolute Lymphocytes 1.43 Absolute Monocytes 0.72 Absolute Eosinophils 0.16 Absolute Basophils 0.04 Sodium 146 H Potassium 3.9 Chloride 111 H Carbon Dioxide 31.6 Anion Gap 3.4 BUN 15 Creatinine 0.4 L Est GFR (CKD-EPI 2020) 110.45 Glucose 92 Calcium 8.7 Total Bilirubin 0.4 AST 11 L ALT 20 Alkaline Phosphatase 80 Troponin I 124 H* Total Protein 4.8 L Albumin 2.1 L Preliminary micro results at discharge 01/06/25 07:51 Blood Blood Culture - Preliminary NO GROWTH 48 HOURS 01/06/25 07:39 Blood Blood Culture - Preliminary NO GROWTH 48 HOURS PFSH All Active Problems (Updated 01/06/25 @ 07:52 by Tamar Levi MD) Elevated troponin (Acute) Aspiration pneumonia (Acute) Acute hypoxemic respiratory failure (Acute) Altered mental status (Acute) Weakness (Acute) DNR (do not resuscitate) (Acute) See 11/14/24 COLST: DNR/DNI, yes transfer to the hospital and treat, use trial of antibiotics and IV fluids. No feeding tube. Osteoporosis (Chronic) Advanced care planning/counseling discussion (Acute) Ambulatory dysfunction (Acute) Bipolar 1 disorder (Acute) Anxiety and depression (Chronic) Fracture of right tibia and fibula (Acute) S/P IM FIXATION Fracture of left proximal fibula (Acute) Closed fracture of left distal tibia (Acute) Medical History (Updated 01/06/25 @ 07:52 by Tamar Levi MD) Palliative care encounter Chronic neck pain with history of cervical spinal surgery Smoker Migraine CAD (coronary artery disease) Prediabetes Cervical stenosis of spinal canal Asthma Surgical History (Updated 05/24/24 @ 13:19 by Cristela Zapata RN) History of cholecystectomy open H/O gastric bypass Stented coronary artery Social History Smoking/Tobacco Use Status: Current every day Tobacco Type: cigarettes Smoking risk assessment performed?: Yes Alcohol Intake: never Substance use type: marijuana Housing: senior living Do you feel safe at home: Yes Do you feel safe in your relationship?: Yes Time Spent with Patient Time Spent with Patient: 45-69 minutes Time was spent: preparing to see the patient(eg.review tests), obtaining and/or reviewing separately otained hiistory, ordering medications,tests, procedures, referring, communicating with other health wound care specialist, indepentently interpreting results, counseling the patient and care coordination
--- NOTE | 2025-01-08 13:41 | CHAPLAIN ---
Jeannie was resting in bed, visiting with Ananth Layton, the research administrator from [facility], when stopped in. I explained my role and offered support. According to Care Management notes, Jeannie lives at the [facility] and shares a room with her . Her ability to speak had changed, but she seems to be able to verbalize efficiently again.
--- NOTE | 2025-01-08 13:58 | IN_ITS ---
PT Notes Visit Reasons: Cerebrovascular accident Physical Therapy Inpatient Initial Evaluation Date:01/08/2025 Referring Doctor: Dr Ritchie PT Orders: PT CONSULT: PT Evaluation and treatment Precautions:Standard, Fall Risk Patient Profile/Admitting Diagnosis: Pt is a 64 yo female presented to ED From SNF after episode of unresponsiveness. In ED pt noted to have left sided weakness. Imagining negative for CVA. pt dx of aspiration pneumonia and elevated troponins. Pt admitted to Med surg unit for further medical workup and management. Pt had ST consult recommended 1:1 feeding PMHX: Elevated troponin (Acute) Aspiration pneumonia (Acute) Acute hypoxemic respiratory failure (Acute) Altered mental status (Acute) Weakness (Acute) DNR (do not resuscitate) (Acute) See 11/14/24 COLST: DNR/DNI, yes transfer to the hospital and treat, use trial of antibiotics and IV fluids. No feeding tube.Osteoporosis (Chronic) Advanced care planning/counseling discussion (Acute) Ambulatory dysfunction (Acute) Bipolar 1 disorder (Acute) Anxiety and depression (Chronic) Fracture of right tibia and fibula (Acute) S/P IM FIXATION Fracture of left proximal fibula (Acute) Closed fracture of left distal tibia (Acute) Medical History (Updated 01/06/25 @ 07:52 by Tamar Levi MD) Palliative care encounter Chronic neck pain with history of cervical spinal surgery Smoker Migraine CAD (coronary artery disease) Prediabetes Cervical stenosis of spinal canal Asthma Surgical History (Updated 05/24/24 @ 13:19 by Cristela Zapata RN) History of cholecystectomy openH/O gastric bypass Stented coronary artery Social History/Home Situation: Pt is LTC resident at [facility]. She utilizes a wheelchair as her primary mode of locomotion. She was working with PT for ambulation with her 4WW and OT for her RUE strength, ADL prior to admission. Pt assist for all transfers.and ambulation. Equipment Owned/DME: w/c with cushion, 4WW, sling for comfort RUE (per pt) Subjective: Pt reports she had just been able to take a walk outside with the 4ww with the PT one week ago. Pt states she shares her room with her who is also in the hospital now. Pt reports her right leg at times mariah on her. Objective: [] General Observation: female semireclined in bed with telemetry in place. Pt with ecchymotic area to her sternum. Pt with fading ecchymotic area to her right knee. Mental Status: alert and oriented to person, she does not know what happened to send her to the hospital. able to follow instructions. pt with poor safety awareness. Pain: right upper arm 5/10 at times depending how she moves her arm. She declines use of sling stating it bothers her neck too much and made it harder to do things. ROM: [] Right Upper Extremity: GHJ flexion 85 degrees, abduction 75 degrees, elbow hand WFL Left Upper Extremity: WFL Right Lower Extremity: hip and knee WFL, ankle DF -5 degrees Left Lower Extremity: WFL Strength: [] Right Upper Extremity: impaired GHJ flexion abduction d/t pain, elbow and hand grasp good Left Upper Extremity: >3/5 Right Lower Extremity: hip flexion 2+/5, abduction 2+/5, hip IR 2-/5, hip extension 3-/5, knee extension 3-/5, knee flexion 2+/5, ankle DF 3-/5, PF 2+/5 Left Lower Extremity:3/5 Sensation: intact coordination: impaired accuracy RLE, right opposition. Bed Mobility/Transfers: [] Supine to sit mod A Sit to stand min A Stand to sit min A Bed to chair Min A with FWW Gait: amb with FWW with min A 25 feet impaired R knee stability , impaired right foot clearance , pt with excessive pf to sustain knee extension on right Balance: [] Static Sitting: Good Dynamic Sitting: Fair Static Standing: Fair - with UE support Dynamic Standing: Poor + Special Tests: [] Mobility Limitations Standardized Measure [] [facility] AM-PAC 6 clicks Basic Mobility Inpatient Short Form: [] Raw Score:12 CMS Score:68.66% Informed Consent/Education: Patient instructed in purpose of PT consult. Assessment: Patient demonstrates significant impairment in right LE motor control resulting in excessive plantarflexion at mid stance on right. Patient may benefit from right AFO to aid in foot clearance and tibial control reducing hyperextension at knee. Patient is a 64-year-old female who presents with clinical signs and symptoms consistent with current/admitting diagnoses that have resulted to mobility limitations, gait instability, generalized weakness, and impairment of motor control as demonstrated by the following impairment level findings: 1. Decreased strength/ motor control to BUE/BLE R>L major muscle groups 2. Impaired standing/sitting balance 3. Impaired functional activity tolerance 4. pain in right UE/shoulder /upper arm Impairments are contributing to the following functional limitations: 1. Inability to safely ambulate without assistive device 2. Increase completion time for mobility ADL performance 3. Increased fall risk 4. decline in bed mobility skills 5. decline in transfer skills Patient is assessed as a moderate complexity based on the following: History: 64-year-old female with impairment level findings, functional limitations, and past medical history as indicated above Examination: Demonstrable impairment in strength, balance, and mobility level with underlying impairments and functional limitations as documented above Presentation: evolving/stable Decision Making: moderate Goals: N/A. d/t pt returning to SNF Plan of Care/Treatment Plan: N/A. d/t pt returning to SNF DISCHARGE RECOMMENDATIONS: Return to SNF when medically appropriate . Continued OT and PT for strengthening , functional mobility, gait and balance. TREATMENT CODE/TIME:87317/ [id number] Thank you for the opportunity to participate in the care of this patient. Alysha Porter PT [facility]
== END 2025-01-08 14:27 | disposition skilled nursing facility (03) | DRG 177 ==
LOC: ER 08:53 → MS 09:43
PROVIDERS: Student in an Organized Health Care Education/Training Program; Admitting Provider Hospitalist; Emergency Provider Emergency Medicine; PCP Nurse Practitioner Family; Responsible Provider Hospitalist; Visit Provider Hospitalist
DX: R41.82 Altered mental status, unspecified; J69.0 Pneumonitis due to inhalation of food and vomit; Z66 Do not resuscitate; M81.0 Age-related osteoporosis without current pathological fracture; J96.01 Acute respiratory failure with hypoxia; R53.1 Weakness; F31.89 Other bipolar disorder; F41.8 Other specified anxiety disorders; F17.210 Nicotine dependence, cigarettes, uncomplicated; J45.909 Unspecified asthma, uncomplicated; R73.03 Prediabetes; I25.10 Atherosclerotic heart disease of native coronary artery without angina pectoris; Z98.84 Bariatric surgery status; I69.351 Hemiplegia and hemiparesis following cerebral infarction affecting right dominant side; E03.9 Hypothyroidism, unspecified; I10 Essential (primary) hypertension; R74.8 Abnormal levels of other serum enzymes; Z79.82 Long term (current) use of aspirin; M48.02 Spinal stenosis, cervical region; Z95.5 Presence of coronary angioplasty implant and graft; D64.9 Anemia, unspecified
CPT/HCPCS: 00123; 36415; 70496; 70498; 71275; 80053; 82805; 87040; 87637; 87641; 92610; 93005; 94640; 96365; 96366; 96367; 97162; 99285; J1650; 70551; 80202; 80320; 81003; 82140; 83605; 83735; 84443; 84484; 85025; 93010; 94664; 99222; 99232; 99239; J0696; J2543; J3372; J3490; J7613; Q9967

== ENCOUNTER 2025-01-28 09:28 | Emergency (ER) | payer MEDICARE, MEDICAID, SELFPAY ==
[2025-01-28] VITALS (42 sets, daily range): BP systolic 97–161; BP diastolic 46–74; PULSE 42–69; RESP 6–25; O2SAT 89–100
--- NOTE | 2025-01-28 09:15 | RT.EKG_ITS ---
APPROVED REPORT Exam: Resting ECG Reason for Exam: Unwitnessed Fall Patient Location: E HR:48 bpm ECG Measurements Heart Rate 48 AXIS IL 170 P 44 QRSd 82 QRS 69 QT 460 T 62 QTc 411 Conclusion sinus 48 no stemi
--- NOTE | 2025-01-28 09:30 | DI.CT_ITS ---
Exam(s) CT HEAD CERVICAL SPINE WO EXAM: CT HEAD CERVICAL SPINE WO CLINICAL HISTORY: Fall, Head Trauma. TECHNIQUE: Imaging Protocol: Axial computed tomography images with coronal and sagittal reformatted images were created and reviewed COMPARISON: CT CT BRAIN NECK CTA from 01/06/2025 FINDINGS: BRAIN: There are no skull fractures nor fluid in the visualized paranasal sinuses. There is no evidence of intracranial hemorrhage, mass effect, or shift of midline structures. There are no extra-axial fluid collections. The ventricles are not enlarged or shifted and there is no blood within the ventricular system nor within the basal cisterns. CERVICAL SPINE: There is evidence of prior cervical spine surgery with laminectomies and posterior fusion rods in the lower cervical spine at C5-C6 levels.. No evidence of acute fracture. Chronic disc space narrowing at C5-6 and C6-7 levels noted. Narrowing posteriorly at C4-5 level noted, similar to previous. No new significant facet joint findings. No facet malalignment. No significant osseous lesions evident. IMPRESSION: No acute intracranial findings on this noninfused CT scan of the brain. No evidence of acute cervical spine fracture, malalignment, nor acute compromise of the cervical spinal canal. Prior laminectomies at C5-6 levels again noted as well as posterior fusion rods and intrapedicular screws. Findings called by myself to ER provider 01/28/2025 at 11:30 a.m.. RADIATION DOSE DELIVERED: 1,086.95mGy.cm Total DLP DATA REPOSITORY: All CT scans at this facility are submitted to the National Radiology Data Registry (NRDR) Dose Index Registry (DIR) with the [employer] (A[employer]). RADIATION OPTIMIZATION: All CT scans at this facility use at least one of these dose optimization techniques: automated exposure control; mA and/or kV adjustment per patient size (includes targeted exams where dose is matched to clinical indication); or iterative reconstruction.
--- NOTE | 2025-01-28 09:45 | DI.RAD_ITS ---
Exam(s) XR CHEST 1V IN DI DEPT EXAM: XR CHEST 1V IN DI DEPT CLINICAL HISTORY: Trauma. TECHNIQUE: 2D digital imaging was performed. COMPARISON: CR XR CHEST 2V PA LATERAL from 12/06/2024 FINDINGS: Single AP portable view. Heart size is upper normal. The mediastinum is not widened. Lungs are clear. No infiltrates nor obvious pleural effusions. No right rib fracture again noted IMPRESSION: No acute pulmonary findings on this single AP portable view of the chest. DATA REPOSITORY: RADIATION DOSE DELIVERED:
--- NOTE | 2025-01-28 09:48 | W.ED.GENAD ---
Discharge Plan Disposition Patient Disposition: Detention Facility(SNF) Condition: Stable Discharge Details Clinical Impression: Fall, Bradycardia with 41-50 beats per minute Primary Care Provider: Jolly Davenport ED Provider: Farrah Wooten [place] Meds and New Rx's Prescriptions: No Action fluoxetine 20 mg capsule 20 mg PO DAILY Rx Instructions: total dose 60 mg daily prazosin 5 mg capsule 5 mg PO QHS Incruse Ellipta 62.5 mcg/actuation blister with device 1 inh inhalation DAILY isosorbide mononitrate 30 mg tablet extended release 24 hr 30 mg PO DAILY (DME) Affirm Underwear Misc See Rx Instructions .Route Rx Instructions: As directed aspirin 81 mg tablet,delayed release (DR/EC) 81 mg PO DAILY fluticasone furoate-vilanterol [Breo Ellipta] 200-25 mcg/dose blister with device 1 inh inhalation DAILY docusate sodium 100 mg capsule 100 mg PO BID atorvastatin 40 mg Tablet 40 mg PO QPM ferrous sulfate [FeroSul] 325 mg (65 mg iron) tablet 325 mg PO DIRECTED Rx Instructions: 3 times weekly polyethylene glycol 3350 [Miralax] 17 gram Powder In Packet 17 g PO DAILY clonazepam [Klonopin] 0.5 mg Tablet 0.5 mg PO QPM cyanocobalamin (vitamin B-12) [Vitamin B-12] 1,000 mcg Tablet 1,000 mcg PO HS levothyroxine 50 mcg Tablet 50 mcg PO DAILY nitroglycerin 0.4 mg Tablet, Sublingual 0.4 mg SUBLINGUAL Q5M PRN Rx Instructions: do not exceed 3 doses per episode magnesium oxide 400 mg magnesium Tablet 400 mg PO QPM albuterol 90 mcg/actuation Aerosol 90 mcg INHALATION Q6H PRN PRN Culturelle 10 billion cell Capsule 1 cap PO DAILY cholecalciferol (vitamin D3) 25 mcg (1,000 unit) Tablet 75 mcg PO HS omeprazole 20 mg capsule,delayed release(DR/EC) 40 mg PO DAILY tizanidine 4 mg tablet 4 mg PO QHS trazodone 50 mg tablet 50 mg PO QHS acetaminophen 500 mg capsule 1,000 mg PO TID sennosides [senna] 8.6 mg tablet 17.2 mg PO DAILY calcium citrate 200 mg (950 mg) Tablet 250 mg PO DAILY bisacodyl 10 mg suppository 10 mg DC DAILY PRN fluoxetine 40 mg capsule 40 mg PO DAILY ondansetron 4 mg tablet,disintegrating 4 mg PO TID-QID PRN tizanidine 2 mg tablet 2 mg PO Q8H PRN PRN divalproex 125 mg tablet,delayed release (DR/EC) See Rx Instructions PO .COMPLEX Rx Instructions: 2-3 tabs orally bid; orally; 2 tabs AM, 3 tabs PM Discharge Instructions Instructions: Bradycardia, Preventing falls in adults Additional Instructions: At this time head CT was done, chest x-ray, lab work and urinalysis. At this time your heart rate is a little bit low which is called bradycardia. You were placed on the care management list to get a follow-up appointment with cardiology to address this. Please also discuss this with your primary care provider. You do have a couple of skin tears noted to your arm and neck. No evidence of stroke, bleeding in your brain or broken bones in your neck. You will be sore for the next few days. No evidence of heart attack or urinary tract infection. Please do not get up from a chair or walk without assistance or calling for help first. Discussed your home medications with your primary care provider or prescribing provider. Keep wounds clean and dry. Please be seen sooner for any signs of infection including increased redness, red streaks drainage or swelling. change the dressings once a day. Wash gently with soap and water. Allow to air dry at least 20 minutes a day. Referrals: CARDIOLOGY,[facility] [OTHER, Cardiology] - 1 week Referral Note: ER follow up Bradycardia Clinical Impression: Bradycardia with 41-50 beats per minute; Fall CARDIOLOGY,[facility] [OTHER, Cardiology] - 1 week Jolly Davenport [Primary Care Provider, Medicine] - 1 week HPI General Mode of arrival: EMS. Date/Time Provider Initiated Documentation: 01/28/25 09:44. Limitations to Documentation: no limitations. Information obtained by: patient, RN/MD ([facility]), EMS, RN notes reviewed and old records reviewed. HPI Narrative: 64-year-old female presents to the ER via EMS with a chief complaint of witnessed fall after standing up [facility] a wheelchair [facility] morning. Patient sustained a frontal scalp small laceration with surrounding hematoma with bleeding controlled, right anterior skin tear and left upper extremity skin tear which is large. She is also complaining of some neck pain. She is ANO x 4 upon arrival no focal neurodeficits noted. Denies any pelvic pain. She was recently treated for pneumonia she does endorse diarrhea for the last 2 days denies any nausea vomiting or abdominal pain denies any chest pain. She does have a brace noted to her right lower extremity from a leg surgery. Upon arrival blood pressure is 97/53 pulse 48, does have a history of CAD asthma history of gastric bypass cholecystectomy coronary artery stent, osteoporosis, Related Data Home Medications ?Medication ?Instructions ?Recorded ?Confirmed Lactobacillus rhamnosus GG 10 1 cap PO DAILY 09/16/22 01/06/25 billion cell capsule (Culturelle) albuterol 90 mcg/actuation aerosol 90 mcg inhalation Q6H PRN PRN 09/16/22 01/06/25 inhaler atorvastatin 40 mg tablet 40 mg PO QPM 09/16/22 01/06/25 cholecalciferol (vitamin D3) 25 75 mcg PO HS 09/16/22 01/06/25 mcg (1,000 unit) tablet clonazepam 0.5 mg tablet (Klonopin) 0.5 mg PO QPM 09/16/22 01/06/25 cyanocobalamin (vitamin B-12) 1,000 mcg PO HS 09/16/22 01/06/25 1,000 mcg tablet (Vitamin B-12) ferrous sulfate 325 mg (65 mg 325 mg PO DIRECTED 09/16/22 01/06/25 iron) tablet (FeroSul) levothyroxine 50 mcg tablet 50 mcg PO DAILY 09/16/22 01/06/25 magnesium oxide 400 mg PO QPM 09/16/22 01/06/25 nitroglycerin 0.4 mg sublingual 0.4 mg sublingual Q5M PRN 09/16/22 01/06/25 tablet polyethylene glycol 3350 17 gram 17 g PO DAILY 09/16/22 01/06/25 oral powder packet (Miralax) isosorbide mononitrate 30 mg 30 mg PO DAILY 10/11/22 01/06/25 tablet,extended release 24 hr aspirin 81 mg tablet,delayed 81 mg PO DAILY 05/24/24 01/06/25 release diaper,brief,adult,disposable 05/24/24 01/06/25 (Affirm Underwear) docusate sodium 100 mg capsule 100 mg PO BID 05/24/24 01/06/25 fluticasone furoate 200 1 inh inhalation DAILY 05/24/24 01/06/25 mcg-vilanterol 25 mcg/dose inhalation powder (Breo Ellipta) acetaminophen 500 mg capsule 1,000 mg PO TID 11/14/24 01/06/25 fluoxetine 20 mg capsule 20 mg PO DAILY 11/14/24 01/06/25 omeprazole 20 mg capsule,delayed 40 mg PO DAILY 11/14/24 01/06/25 release prazosin 5 mg capsule 5 mg PO QHS 11/14/24 01/06/25 sennosides 8.6 mg tablet (senna) 17.2 mg PO DAILY 11/14/24 01/06/25 tizanidine 4 mg tablet 4 mg PO QHS 11/14/24 01/06/25 trazodone 50 mg tablet 50 mg PO QHS depression 11/14/24 01/06/25 umeclidinium 62.5 mcg/actuation 1 inh inhalation DAILY 11/14/24 01/06/25 blister powder for inhalation (Incruse Ellipta) calcium citrate 250 mg PO DAILY 12/05/24 01/06/25 bisacodyl 10 mg rectal suppository 10 mg DC DAILY PRN 01/06/25 01/06/25 divalproex 125 mg tablet,delayed See Rx Instructions PO .COMPLEX 01/06/25 01/06/25 release fluoxetine 40 mg capsule 40 mg PO DAILY 01/06/25 01/06/25 ondansetron 4 mg disintegrating 4 mg PO TID-QID PRN 01/06/25 01/06/25 tablet tizanidine 2 mg tablet 2 mg PO Q8H PRN PRN 01/06/25 01/06/25 Allergies Allergy/AdvReac Type Severity Reaction Status Date / Time morphine Allergy Unknown Verified 12/12/24 09:46 oxycodone Allergy Unknown Verified 12/12/24 09:46 prednisone Allergy Unknown Verified 12/12/24 09:46 sumatriptan (From Imitrex) Allergy Unknown Unverified 12/12/24 09:46 varenicline (From Chantix) Allergy Unknown Verified 12/12/24 09:46 General Stated Complaint: Trauma GEOFFREY: 3 Review of Systems All systems reviewed & are unremarkable except as noted in HPI and below ENT Ears, Nose, Mouth, and Throat: Reports neck pain Musculoskeletal Musculoskeletal: Reports as per HPI and Reports neck pain Exam Narrative Exam Narrative: General: Well Developed, Awake and Alert, conversant. Skin: Warm and Dry HEENT: Head: No palpable deformities, Normocephalic Eyes: Pupils PERRLA, EOM's intact. No periorbital eccymosis or step off Ears: Canal patent. Tympanic membranes are clear . No miles's sign, no hemptympanum. Nose/Face: Left frontal scalp laceration proximately 0.5 cm, facial bones nontender to palpation and stable with manipulation. Mouth/Throat: No intraoral trauma. Teeth and mandible are intact. Neck: Patient arrives in a c-collar placed by EMS upon arrival. . Trachea midline. Right anterior neck skin tear, bleeding controlled Chest: No surface trauma. Nontender without crepitus or deformity. Lungs clear to ausculatation bilaterally. Equal movement bilaterally. Breathing eupneic. Heart: RRR, no rubs, murmurs or gallop. Abdomen: No abrasions, ecchymosis, or surface trauma. Nondistended. Nontender to palpation no guarding, rebound, or rigidity. Pelvis: Nontender to palpation and stable to compression. Femoral pulses strong and equal Extremities: Large skin tear with surrounding ecchymosis noted to left upper extremity antecubital area. Sensation intact. Peripheral pulses intact and equal. Neuro: ANO x4, GCS 15, cranial nerves II through XII intact. Motor and sensory exam nonfocal. Reflexes are symmetric. Course Vital Signs Vital signs: Vital Signs Pulse 48 L 01/28/25 09:31 Respiratory Rate 16 01/28/25 09:31 Blood Pressure 97/53 L 01/28/25 09:31 Pulse Oximetry 94 01/28/25 09:31 Pulse 48 L 01/28/25 09:31 Respiratory Rate 16 01/28/25 09:31 Blood Pressure 97/53 L 01/28/25 09:31 Pulse Oximetry 94 01/28/25 09:31 Oxygen Delivery Method Room Air 01/28/25 09:31 Oxygen Flow Rate 0 01/28/25 09:31 Medical Decision Making 64-year-old female presents to the ER via EMS with a chief complaint of witnessed fall after standing up from a wheelchair at [facility] this morning. Patient sustained a frontal scalp small laceration with surrounding hematoma with bleeding controlled, right anterior skin tear and left upper extremity skin tear which is large. She is also complaining of some neck pain. She is ANO x 4 upon arrival no focal neurodeficits noted. Denies any pelvic pain. She was recently treated for pneumonia she does endorse diarrhea for the last 2 days denies any nausea vomiting or abdominal pain denies any chest pain. She does have a brace noted to her right lower extremity from a leg surgery. Upon arrival blood pressure is 97/53 pulse 48, does have a history of CAD asthma history of gastric bypass cholecystectomy coronary artery stent, osteoporosis, Trauma workup ordered including labs, EKG troponin due to the nature of the fall, urinalysis stool study including C. difficile due to the recent antibiotics head CT and C-spine CT, CXR. Workup is largely unremarkable, blood pressure has improved after 500 cc normal saline, patient is sitting up in bed and talking is ANO x 4, blood pressure is 127/66 heart rate is 51 she is satting 100% on room air I did discuss home care with her and to discuss her normal medications with her primary care. 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 No evidence of urinary tract infection no CVA no acute fractures. Patient did not have diarrhea during her stay here in the emergency department so stool studies not obtained. Discussed orthostatics and discharge care with ED staff will arrange for transport back to [facility]. Orthostatics performed prior to patient being discharged heart rate improved to 61 upon standing blood pressure 143/74, please see nurses notes. Standing blood pressure 121/64 heart rate 64. Patient transported back to the [facility] please see discharge note by ED staff. Vital signs remained hemodynamically stable upon discharge. This text was generated using [employer] dictation system, please disregard any oddities of phrase or misspellings. Medical Records Medical records reviewed: Yes I reviewed the patient's medical records. Lab Data Lab results reviewed: Yes I reviewed the patient's lab results. Labs: Laboratory Tests Range/Units 01/28/25 01/28/25 01/28/25 10:20 11:05 11:15 WBC (4.4-10.8) 10^3/uL 8.55 RBC (3.93-5.22) 10^6/uL 3.48 L Hgb (11.2-15.7) g/dL 11.4 Hct (36.0-46.0) % 35.7 L MCV (80-95) fL 103 H MCH (27.0-33.0) pg 32.8 MCHC (32.0-36.0) % 31.9 L RDW (11.7-14.6) % 13.5 Plt Count (130-400) 10^3/uL 200 MPV (8.0-11.0) fL 9.7 Immature Gran % % 0.6 Neutrophils % % 70.1 Lymphocytes % % 20.1 Monocytes % % 6.3 Eosinophils % % 2.1 Basophils % % 0.8 Nucleated RBC % (0.0-0.3) % 0.0 Absolute Neutrophils (1.2-6.7) 10^3/uL 5.99 Absolute Lymphocytes (1.2-3.4) 10^3/uL 1.72 Absolute Monocytes (0.1-0.8) 10^3/uL 0.54 Absolute Eosinophils (0.0-0.7) 10^3/uL 0.18 Absolute Basophils (0.0-0.2) 10^3/uL 0.07 PT (9.1-11.1) sec 10.3 INR (0.9-1.1) 1.0 APTT (20.6-30.2) sec 24.5 Sodium (136-145) mmol/L 143 Potassium (3.5-5.1) mmol/L 3.8 Chloride (98-107) mmol/L 105 Carbon Dioxide (21.0-32.0) mmol/L 31.3 Anion Gap (3-11) mmol/L 6.7 BUN (7-18) mg/dL 26 H Creatinine (0.55-1.02) mg/dL 0.6 Est GFR (CKD-EPI 2020) (mL/min/1.73m2) 100.17 Glucose (74-106) mg/dL 103 Calcium (8.5-10.1) mg/dL 9.4 Magnesium (1.8-2.4) mg/dL 1.9 Total Bilirubin (0.2-1.0) mg/dL 0.3 AST (15-37) U/L 20 ALT (14-59) U/L 25 Alkaline Phosphatase (46-116) U/L 105 Troponin I (<or=51) ng/L 6 6 Total Protein (6.4-8.2) g/dL 6.2 L Albumin (3.4-5.0) g/dL 3.0 L Urine Color (Yellow) Yellow Urine Clarity (Clear) Clear Urine pH (5-8) 5.5 Ur Specific [place] (1.005-1.025) 1.025 Urine Protein (Neg-Trace) mg/dL Negative Urine Ketones (Negative) mg/dL Negative Urine Blood (Negative) Negative Urine Nitrite (Negative) Negative Urine Bilirubin (Negative) Negative Urine Urobilinogen (Up to 0.2) mg/dL 0.2 Ur Leukocyte Esterase (Negative) Negative Urine Glucose (Negative) mg/dL Negative Quality:SDOH Health Related Social Needs: Health related social needs details Pt lives at [facility]. [facility] All Active Problems (Updated 01/28/25 @ 12:41 by Farrah Wooten NP) Bradycardia with 41-50 beats per minute (Acute) Fall (Acute) Aspiration pneumonia (Acute) Acute hypoxemic respiratory failure (Acute) Weakness (Acute) DNR (do not resuscitate) (Acute) See 11/14/24 COLST: DNR/DNI, yes transfer to the hospital and treat, use trial of antibiotics and IV fluids. No feeding tube. Osteoporosis (Chronic) Advanced care planning/counseling discussion (Acute) Ambulatory dysfunction (Acute) Bipolar 1 disorder (Acute) Anxiety and depression (Chronic) Fracture of left proximal fibula (Acute) Closed fracture of left distal tibia (Acute) Medical History Palliative care encounter Chronic neck pain with history of cervical spinal surgery Smoker Migraine CAD (coronary artery disease) Prediabetes Cervical stenosis of spinal canal Asthma Surgical History History of cholecystectomy open H/O gastric bypass Stented coronary artery Social History Smoking/Tobacco Use Status: Current every day Tobacco Type: cigarettes Smoking risk assessment performed?: Yes Alcohol Intake: never Substance use type: marijuana Housing: snf Do you feel safe at home: Yes Do you feel safe in your relationship?: Yes
[2025-01-28] MEDS: Normal Saline 500 ML IV (10:25)
[2025-01-28] MEDS: Lidocaine/Epinephri/Tetracaine Topical Gel 3 ML TP (10:25)
[2025-01-28 10:27] LABS: Abs Immature Grans 0.05 10^3/uL (0.0-0.06); HCT 35.7 % (36.0-46.0); HGB 11.4 g/dL (11.2-15.7); Immature Grans % 0.6 %; MCH 32.8 pg (27.0-33.0); MCHC 31.9 % (32.0-36.0); MCV 103 fL (80-95); MPV 9.7 fL (8.0-11.0); Platelet Count 200 10^3/uL (130-400); RBC 3.48 10^6/uL (3.93-5.22); RDW 13.5 % (11.7-14.6); RDW-SD 51.5 fL; WBC 8.55 10^3/uL (4.4-10.8)
[2025-01-28 10:53] LABS: INR 1.0 (0.9-1.1); PTT Activated 24.5 sec (20.6-30.2); Prothrombin Time 10.3 sec (9.1-11.1)
[2025-01-28 11:18] LABS: Glucose Negative (Negative)
[2025-01-28 11:30] LABS: ALT 25 U/L (14-59); AST 20 U/L (15-37); Albumin 3.0 g/dL (3.4-5.0); Alkaline Phosphatase 105 U/L (46-116); Anion Gap 6.7 mmol/L (3-11); BUN 26 mg/dL (7-18); Bilirubin, Total 0.3 mg/dL (0.2-1.0); CO2 31.3 mmol/L (21.0-32.0); Calcium 9.4 mg/dL (8.5-10.1); Chloride 105 mmol/L (98-107); Estimated GFR 100.17 (mL/min/1.73m2); Glucose 103 mg/dL (74-106); Magnesium 1.9 mg/dL (1.8-2.4); Potassium 3.8 mmol/L (3.5-5.1); Sodium 143 mmol/L (136-145); Total Protein 6.2 g/dL (6.4-8.2); Troponin I 6 ng/L (<or=51)
[2025-01-28 11:49] LABS: Troponin I 6 ng/L (<or=51)
--- NOTE | 2025-01-28 13:01 | NUR.NOTE ---
Nursing Note: Wound care provided after LET used. Cleansed with ultradex/saline. Pt tolerated well. Skin unfurled, adhered to skin. Bacitracin applied and covered with tegaderm to left arm and upper chest.
--- NOTE | 2025-01-28 13:05 | NUR.NOTE ---
Nursing Note: pt did not have any stool production while in ER. Sample not provided, therefore stool sample not collected
== END 2025-01-28 13:55 | disposition skilled nursing facility (03) ==
PROVIDERS: Emergency Provider Registered Nurse Emergency; PCP Nurse Practitioner Family
DX: M54.2 Cervicalgia (principal); R00.1 Bradycardia, unspecified; I25.10 Atherosclerotic heart disease of native coronary artery without angina pectoris; Z98.84 Bariatric surgery status; Z98.1 Arthrodesis status; Z79.82 Long term (current) use of aspirin
CPT/HCPCS: 80053; 93005; 96360; 99285; 70450; 71045; 72125; 81003; 83735; 84484; 85025; 85610; 85730; 93010

== ENCOUNTER 2025-02-13 10:32 | Outpatient (CLI) | payer MEDICARE, MEDICAID, SELFPAY ==
--- NOTE | 2025-02-13 10:15 | DI.RAD_ITS ---
Exam(s) XR SHOULDER RT COMPLETE 2+V EXAM: XR SHOULDER RT COMPLETE 2+V CLINICAL HISTORY: F/U R PROX HUM FX. TECHNIQUE: 2D digital imaging was performed. Five views. COMPARISON: CR XR SHOULDER RT COMPLETE 2+V from 12/12/2024 FINDINGS: The exam somewhat limited by positioning. There has been some healing at the humeral head fracture which is unchanged in alignment. No narrowing of the glenohumeral joint space. Minimal degenerative changes of the AC joint. IMPRESSION: Stable alignment of proximal humeral fracture which shows some interval healing. DATA REPOSITORY: RADIATION DOSE DELIVERED:
== END 2025-02-13 10:33 | disposition home or self-care (01) ==
LOC: DIORS 10:32
PROVIDERS: PCP Nurse Practitioner Family; Referring Provider Nurse Practitioner Family; Visit Provider Student in an Organized Health Care Education/Training Program
DX: S42.201D Unspecified fracture of upper end of right humerus, subsequent encounter for fracture with routine healing (principal); W19.XXXD Unspecified fall, subsequent encounter
CPT/HCPCS: 99213; 73030

== ENCOUNTER 2025-02-22 19:13 | Outpatient (REF) | payer MEDICARE, MEDICAID, SELFPAY | END 2025-02-22 19:14 | disposition home or self-care (01) | LOC: LBN 19:13 | PROVIDERS: PCP Nurse Practitioner Family; Visit Provider Nurse Practitioner Adult Health | DX: F39 Unspecified mood [affective] disorder (principal) | CPT/HCPCS: 80164 ==

== ENCOUNTER 2025-02-25 07:47 | Outpatient (CLI) | payer MEDICARE, MEDICAID, SELFPAY | END 2025-02-25 07:48 | disposition home or self-care (01) | LOC: DI.CARD 07:47 | PROVIDERS: PCP Nurse Practitioner Family; Visit Provider Registered Nurse | CPT/HCPCS: 93010 ==

== ENCOUNTER 2025-03-06 07:57 | Outpatient (CLI) | payer MEDICARE, MEDICAID, SELFPAY ==
--- NOTE | 2025-03-06 07:45 | RT.EKG_ITS ---
APPROVED REPORT Exam: Resting ECG Reason for Exam: CAD Patient Location: O HR:58 bpm ECG Measurements Heart Rate 58 AXIS NH 130 P 32 QRSd 83 QRS 53 QT 422 T 39 QTc 415 Conclusion Sinus rhythm...normal P axis, V-rate 50- 99 Normal Electrocardiogram
== END 2025-03-06 07:58 | disposition home or self-care (01) ==
LOC: DI.CARD 07:58
PROVIDERS: PCP Nurse Practitioner Family; Visit Provider Registered Nurse
DX: I25.10 Atherosclerotic heart disease of native coronary artery without angina pectoris (principal)
CPT/HCPCS: 93010

== ENCOUNTER → 2025-03-06 08:06 | Outpatient (BNVA) | payer MEDICARE, MEDICAID, SELFPAY | PROVIDERS: PCP Nurse Practitioner Family; Referring Provider Nurse Practitioner Family; Visit Provider Registered Nurse | DX: I25.10 Atherosclerotic heart disease of native coronary artery without angina pectoris (principal); R00.1 Bradycardia, unspecified; R42 Dizziness and giddiness; R06.00 Dyspnea, unspecified; R07.9 Chest pain, unspecified; Z79.02 Long term (current) use of antithrombotics/antiplatelets; Z95.5 Presence of coronary angioplasty implant and graft | CPT/HCPCS: 99215; 93005 ==

== ENCOUNTER 2025-03-06 08:58 | Outpatient (CLI) | payer MEDICARE, MEDICAID, SELFPAY | END 2025-03-06 08:59 | disposition home or self-care (01) | PROVIDERS: PCP Nurse Practitioner Family; Referring Provider Registered Nurse; Visit Provider Registered Nurse | DX: R55 Syncope and collapse (principal) | CPT/HCPCS: 93005; 93270; 99215 ==

== ENCOUNTER 2025-04-08 00:26 | Outpatient (CLI) | payer MEDICARE, MEDICAID, SELFPAY ==
--- NOTE | 2025-04-08 05:45 | DI.NM_ITS ---
APPROVED REPORT Exam: Pharmacologic Patient Location: Out-Patient Room/Bed: Stress Nurse: Naima Adamson RN and Vijay Breen RN Ordering Provider:MELIZA SAMSON, Contact Number: BMI: 24.88 Baseline Rhythm: Sinus Bradycardia. Comment: Rare PAC noted. Indications: Chest Pain; Syncope; Dyspnea. Medical History Medical History: Smoker; Chronic Neck Pain; CAD; Migraines; Prediabetes; Asthma; HLD; HTN; Aspiration Pneumonia; Acute Hypoxemic Respiratory Failure; Weakness; Ambulatory Dysfunction; Bipolar 1 Disorder; Anxiety; Depression. Cardiac Medications: Albuterol; Aspirin; Atorvastatin; Clonazepam; Divalproex; Fluoxetine; Breo Ellipta; Isosorbide Mononitrate; Levothyroxine; Magnesium; Nitroglycerin; Omeprazole; Ondansetron; Prazosin; Tizanidine; Tramadol; Trazadone; Incruse Ellipta. Allergies: Morphine; Oxycodone; Prednisone; Imitrex; Chantix. Cardiac Risk Factors: HLD; HTN; CVD; Prediabetes; Asthma; Former Smoker. Previous Cardiac Procedures: Coronary Artery Stents x2 in 2013. Pretest Chest Pain Characteristics: None. Exercise History: Sedentary. Physical Disabilities: Brace on right lower leg. Lung Sounds: Clear bilaterally throughout, anterior and posterior. Heart Sounds: S1 and S2 auscultated. Stress Test Details Test: Pharmacologic stress testing performed using 0.4 mg of regadenoson per 5 mL given IV over 10 seconds. Reason for pharmacologic stress test: physical limitation. Nuclear Acquisition: Rest Tc-99m/Stress Tc-99m 1 day Rest Isotope: Tc-99m Sestamibi. Dose: 10.0 Date: 04/08/2025 Injection Time: 1100 Stress Isotope: Tc-99m Sestamibi. Dose: 30.0 Date: 04/08/2025 Injection Time: 1300 HR Resting HR Supine: 42 bpm Max Heart Rate (APMHR): 156 bpm Target HR (85% APMHR): 133 bpm Max HR Achieved: 65 bpm % of APMHR: 42 Recovery HR: 53 bpm BP Resting BP Supine: 150/90 mmHg Max BP: 180/98 mmHg Recovery BP: 138/78 mmHg ECG Resting ECG: Sinus Bradycardia. Ectopy: Rare PAC. Stress ECG: Sinus Rhythm. ST Change: Nondiagnostic low heart rate. Arrhythmia: Rare PAC. Recovery ECG: Sinus Bradycardia. Recovery ST Change: Nondiagnostic low heart rate. Recovery Arrhythmia: None. Clinical Stress Symptoms: Very mild shortness of breath. Angina Score: None Rate Pressure Product: [id number] Stress ECG Conclusion 1. Resting electrocardiogram was normal 2. Patient underwent testing using pharmacologic stress with regadenoson 3. Peak heart rate achieved was 42% of maximal predicted for age 4. The electrocardiographic portion of the test was nondiagnostic 5. See MPI report Stress Test Summary STAGE HR BP SpO2 Symptoms NOTES Supine 42 150/90 100 Pt. is asymptomatic. 1 min post Lexiscan injection 50 180/98 99 Pt. c/o very mild shortness of breath. 3 min post Lexiscan injection 56 140/80 100 Pt. states that all shortness of breath has resolved. 6 min post Lexiscan injection 53 138/78 100 Pt. is asymptomatic. Pt. peformed a MPI nuclear medicine stress test using a laying lexiscan protocol. Laying lexiscan protocol was used due to pt. having a physical limitation (brace on right lower leg) affecting her ability to walk on the treadmill. Pt. experienced very mild shortness of breath immediately following the lexiscan injection which resolved prior to the end of the stress test. Pt. was conversing pleasantly with nursing staff upon leaving the Stress Lab. Pt. left via wheelchair accompanied by her caregiver in no apparent distress. MPI Conclusion Myocardial perfusion is normal. There is no ischemia or evidence of prior infarction Ejection fraction is 55% with normal wall motion
--- NOTE | 2025-04-08 09:40 | DI.US_ITS ---
APPROVED REPORT EXAM: Comprehensive 2D, Doppler, and color-flow Echocardiogram Patient Location: Out-Patient Cooker Sulfate: Parish Kwon RDCS (AE) Indications: Bradycardia, dyspnea, syncope Other Information Study Quality: Fair. Technically limited study due to body habitus. Conclusion Normal left ventricular wall thickness and chamber size. Ejection fraction is 60 to 65%. Wall motion is normal Normal right ventricular size and function Both atria are normal in size Mild mitral annular calcification. No additional valvular disease is identified Wall motion Left Ventricle The left ventricle is normal size. The left ventricular systolic function is normal. The left ventricular ejection fraction is within the normal range. There is normal left ventricular wall thickness. There is normal LV segmental wall motion. There is no ventricular septal defect visualized. LVEF is 60-65%. Right Ventricle The right ventricle is normal size. The right ventricular systolic function is normal. Atria The left atrium size is normal. The right atrium size is normal. The interatrial septum is intact with no evidence for an atrial septal defect. Aortic Valve Aortic valve is grossly normal in structure. There is no aortic valvular stenosis. No aortic regurgitation is present. Mitral Valve Mild mitral annular calcification. No evidence of mitral valve stenosis. Trace to mild mitral regurgitation. Tricuspid Valve The tricuspid valve is normal in structure. There is no tricuspid valve stenosis. Trace tricuspid regurgitation. Pulmonic Valve The pulmonary valve is normal in structure. There is no pulmonic valvular stenosis. There is no pulmonic valvular regurgitation. Great Vessels The aortic root is normal in size. Ascending aorta is not well visualized. Aortic arch is normal in caliber. IVC is normal in size and collapses >50% with inspiration. Pericardium There is no pericardial effusion. 2D Dimensions IVSD d PLAX 0.58 cm F: 0.6-1.0 Ao Root d 2.23 cm F: 2.7 - 3.3 LVPW d PLAX 0.65 cm F: 0.6 - 1.0 LVID d PLAX 5.76 cm F: 3.8 - 5.2 LVDs 3.68 cm F: 2.2 - 3.5 LV EF Teichholz 64.9 % FS 36.04 % LV EDV (Teich) 163.9 mL LV ESV (Teich) 57.5 mL Stroke Vol Index (Teich) 61.86 M-Mode TAPSE 2.46 cm (M/F) >1.7 Auto EF LV EDV A4C 86.8 mL LV EDV A2C 96.4 mL LV EDV BP 90.7 mL LV ESV A4C 34.4 mL LV ESV A2C 35.6 mL LV ESV BP 35.4 mL LVEF(%) A4C 60.4 % LVEF(%) A2C 63.1 % LVEF(%) BP 61.0 % LV SV A4C 52.4 ml LV SV A2C 60.8 ml LV SV BP 55.3 ml LV CO A4C 4.6 L/min LV CO A2C 4.9 L/min LV CO BP 4.8 L/min HR A4C 88.03 BPM HR A2C 81.27 BPM LV EDV Index (BP) LA Volume LA Length A4C 4.6 cm LA Length A2C 5.2 cm LA Area A4C s 11.09 cm2 LA Area A2C s 13.06 cm2 LA Vol A4C A-L 22.83 mL LA Vol A2C A-L 27.80 mL LA Vol Biplane A-L 26.9 mL LA Vol/BSA A4C A-L LA Vol/BSA A2C A-L LA Vol/BSA BP A-L 15.6 mL/m2 LA Vol A4C MOD 22.1 mL LA Vol A2C MOD 27.1 mL LA Vol BP MOD 26.1 mL RA Volume RA Area A4C 6.5 cm2 RA ESV A4C (A-L) 9.4mL RA Vol/BSA A4C A-L RA Length A4C 3.8 cm RA ESV A4C (MOD) 9.0mL LV Diastology MV E' medial 0.094 (>0.07 m/s) MV E Vmax 0.85 (0.4-1.3 m/s) MV E/E' MED 9.02 (<14) MV A Vmax 0.75 (0.4-1.3 m/s) MV E' lateral 0.129 (>0.1 m/s) E/A Ratio 1.1 MV E/E' LAT 6.57 (<14) MV E' Average 0.111 m/s MV E/E'(average) 7.61 Aortic Valve AoV Vmax 1.28 m/s LVOT Vmax 0.95 m/s AoV Peak Grad 6.5 mmHg LVOT Peak Grad 3.6 mmHg AoV Area (Vmax) 1.62 cm2 LVOT VTI 0.261 m AoV VTI 0.354 m LVOT Mean Grad 2.0 mmHg AoV Mean Kal. 0.81 m/s LVOT SV 56.57 mL AoV Mean Grad 3.1 mmHg LVOT Diam s 1.65 cm AoV Area (VTI) 1.60 cm2 AV Regurg Peak Gr. 6.52 mmHg Velocity Ratio 0.74 Mitral Valve MV DT 181 (160-240 msec) Pulmonary Valve PV Vmax 0.84 (0.5-1.5 m/s) RVOT Vmax 0.59 m/s PV Peak Grad 2.8 mmHg RVOT Peak Gr. 1.4 mmHg PV Mean Kal 0.55 m/s RVOT VTI 0.170 m PV Mean Grad 1.4 mmHg RVOT Mean Gr. 0.9 mmHg
[2025-04-08] MEDS: Regadenoson 0.4 MG/5 ML SYR IVP (12:59)
== END 2025-04-08 00:46 ==
LOC: DI 00:26
PROVIDERS: PCP Nurse Practitioner Family; Visit Provider Registered Nurse
DX: R06.00 Dyspnea, unspecified (principal); R07.9 Chest pain, unspecified
CPT/HCPCS: 78452; 93016; 93018; 93306; 93017; J2785

== ENCOUNTER 2025-04-09 07:53 | Outpatient (CLI) | payer MEDICARE, MEDICAID, SELFPAY ==
--- NOTE | 2025-04-09 08:40 | W.CARDEVENT ---
Date of service: 04/09/25 Time of Service: 08:41 Cardiac Event Recorder Referring Provider:: Pauline Li Indications:: Chest pain Cardiac Event Note: This is a cardiac event monitor. Patient was monitored for 29 days and 14 hours rhythm throughout was sinus with an average heart rate overall of 54 There were no significant ventricular dysrhythmias There were rare atrial premature beats. Some of these correlated with symptoms. Most symptoms correlated to sinus rhythm There was no atrial fibrillation, no high-grade AV block, no pauses greater than 3 seconds
== END 2025-04-09 07:54 | disposition home or self-care (01) ==
LOC: CARDOPNVT 07:53
PROVIDERS: PCP Nurse Practitioner Family; Visit Provider Internal Medicine Cardiovascular Disease
DX: R07.9 Chest pain, unspecified (principal)
CPT/HCPCS: 93272

== ENCOUNTER → 2025-05-01 10:34 | Outpatient (BNVA) | payer MEDICARE, MEDICAID, SELFPAY | PROVIDERS: PCP Nurse Practitioner Family; Referring Provider Nurse Practitioner Family; Visit Provider Registered Nurse | DX: I25.10 Atherosclerotic heart disease of native coronary artery without angina pectoris (principal); R00.1 Bradycardia, unspecified; I10 Essential (primary) hypertension; J44.9 Chronic obstructive pulmonary disease, unspecified | CPT/HCPCS: 99215 ==

== ENCOUNTER 2025-05-21 15:08 | Outpatient (REF) | payer MEDICARE, MEDICAID, SELFPAY ==
[2025-05-21 16:04] LABS: Glucose Negative (Negative)
== END 2025-05-21 15:09 | disposition home or self-care (01) ==
LOC: LBN 15:08
PROVIDERS: PCP Nurse Practitioner Family; Visit Provider Nurse Practitioner Adult Health
DX: N39.0 Urinary tract infection, site not specified (principal)
CPT/HCPCS: 81003; 87086

== ENCOUNTER 2025-05-23 00:31 | Inpatient (IN) | payer MEDICARE, MEDICAID, SELFPAY ==
[2025-05-23] VITALS (61 sets, daily range): BP systolic 59–147; BP diastolic 30–87; PULSE 53–85; RESP 11–28; TEMP 35.9–38.3; O2SAT 89–100
--- NOTE | 2025-05-23 00:15 | RT.EKG_ITS ---
APPROVED REPORT Exam: Resting ECG Reason for Exam: AMS Patient Location: E HR:59 bpm ECG Measurements Heart Rate 59 AXIS W[place] 133 P 29 QRSd 75 QRS 52 QT 428 T 51 QTc 425 Conclusion Sinus bradycardia...rate< 60 Low voltage, extremity leads...all extremity leads <0.5mV Abnormal T, consider ischemia, anterior leads...T <-0.20mV, V2-V4 Physician: No STEMI, inverted t waves in V1-3
--- NOTE | 2025-05-23 00:33 | W.ED.GENAD ---
Discharge Plan Disposition Patient Disposition: Admit to [facility] Condition: Improving Discharge Details Clinical Impression: Septic shock, Pneumonia Primary Care Provider: Jolly Davenport ED Provider: Remy Christian Home Meds and New Rx's Prescriptions: No Action fluoxetine 20 mg capsule 20 mg PO DAILY Rx Instructions: total dose 60 mg daily prazosin 5 mg capsule 5 mg PO QHS Incruse Ellipta 62.5 mcg/actuation blister with device 1 inh inhalation DAILY (DME) Affirm Underwear Misc See Rx Instructions .Route Rx Instructions: As directed aspirin 81 mg tablet,delayed release (DR/EC) 81 mg PO DAILY fluticasone furoate-vilanterol [Breo Ellipta] 200-25 mcg/dose blister with device 1 inh inhalation DAILY docusate sodium 100 mg capsule 100 mg PO BID divalproex 250 mg tablet,delayed release (DR/EC) 250 mg PO BID Patient Comments: 02/18/25 per H&R notes. RH fluoxetine 60 mg tablet 60 mg PO DAILY Patient Comments: 02/18/25 per H&R notes for total of 80 mg daily. RH tramadol 50 mg tablet 50 mg PO Q4H PRN atorvastatin 40 mg Tablet 40 mg PO QPM ferrous sulfate [FeroSul] 325 mg (65 mg iron) tablet 325 mg PO DIRECTED Rx Instructions: 3 times weekly polyethylene glycol 3350 [Miralax] 17 gram Powder In Packet 17 g PO DAILY clonazepam [Klonopin] 0.5 mg Tablet 0.5 mg PO QPM cyanocobalamin (vitamin B-12) [Vitamin B-12] 1,000 mcg Tablet 1,000 mcg PO HS levothyroxine 50 mcg Tablet 50 mcg PO DAILY nitroglycerin 0.4 mg Tablet, Sublingual 0.4 mg SUBLINGUAL Q5M PRN Rx Instructions: do not exceed 3 doses per episode magnesium oxide 400 mg magnesium Tablet 400 mg PO QPM albuterol 90 mcg/actuation Aerosol 90 mcg INHALATION Q6H PRN PRN Culturelle 10 billion cell Capsule 1 cap PO DAILY cholecalciferol (vitamin D3) 25 mcg (1,000 unit) Tablet 75 mcg PO HS omeprazole 20 mg capsule,delayed release(DR/EC) 40 mg PO DAILY tizanidine 4 mg tablet 4 mg PO QHS trazodone 50 mg tablet 50 mg PO QHS acetaminophen 500 mg capsule 1,000 mg PO TID sennosides [senna] 8.6 mg tablet 17.2 mg PO DAILY calcium citrate 200 mg (950 mg) Tablet 250 mg PO DAILY bisacodyl 10 mg suppository 10 mg HI DAILY PRN ondansetron 4 mg tablet,disintegrating 4 mg PO TID-QID PRN tizanidine 2 mg tablet 2 mg PO Q8H PRN PRN HPI General Date/Time Provider Initiated Documentation: 05/23/25 00:33. HPI Narrative: This is a 64-year-old female who resides at [facility] with past medical history of a prior cerebrovascular accident on the right with chronic left-sided deficits, coronary artery disease, asthma, hypertension, high cholesterol, and a DNR status, who presents today for altered mental status. [facility] and rehab staff noted that at 10 PM the patient was doing well. That was the last check. When she was checked in 11 at midnight they noticed that she was notably altered compared to her baseline, EMS was called, blood sugar was normal, she had worsening left-sided deficits, increased weakness and confusion. Blood pressure was noted to be severely low in the 60s. She was brought to the ER for further assessment. Patient on arrival is able to speak with us, she states that she has some pain in her neck. She denies any other chest pain or abdominal pain or other complaints. She denies any other factors. She denies any falls. No other complaints at this time. Related Data Home Medications Medication Instructions Recorded Confirmed Lactobacillus rhamnosus GG 10 1 cap PO DAILY 09/16/22 05/01/25 billion cell capsule (Culturelle) albuterol 90 mcg/actuation aerosol 90 mcg inhalation Q6H PRN PRN 09/16/22 05/01/25 inhaler atorvastatin 40 mg tablet 40 mg PO QPM 09/16/22 05/01/25 cholecalciferol (vitamin D3) 25 75 mcg PO HS 09/16/22 05/01/25 mcg (1,000 unit) tablet clonazepam 0.5 mg tablet (Klonopin) 0.5 mg PO QPM 09/16/22 05/01/25 cyanocobalamin (vitamin B-12) 1,000 mcg PO HS 09/16/22 05/01/25 1,000 mcg tablet (Vitamin B-12) ferrous sulfate 325 mg (65 mg 325 mg PO DIRECTED 09/16/22 05/01/25 iron) tablet (FeroSul) levothyroxine 50 mcg tablet 50 mcg PO DAILY 09/16/22 05/01/25 magnesium oxide 400 mg PO QPM 09/16/22 05/01/25 nitroglycerin 0.4 mg sublingual 0.4 mg sublingual Q5M PRN 09/16/22 05/01/25 tablet polyethylene glycol 3350 17 gram 17 g PO DAILY 09/16/22 05/01/25 oral powder packet (Miralax) aspirin 81 mg tablet,delayed 81 mg PO DAILY 05/24/24 05/01/25 release diaper,brief,adult,disposable 05/24/24 05/01/25 (Affirm Underwear) docusate sodium 100 mg capsule 100 mg PO BID 05/24/24 05/01/25 fluticasone furoate 200 1 inh inhalation DAILY 05/24/24 05/01/25 mcg-vilanterol 25 mcg/dose inhalation powder (Breo Ellipta) acetaminophen 500 mg capsule 1,000 mg PO TID 11/14/24 05/01/25 fluoxetine 20 mg capsule 20 mg PO DAILY 11/14/24 05/01/25 omeprazole 20 mg capsule,delayed 40 mg PO DAILY 11/14/24 05/01/25 release prazosin 5 mg capsule 5 mg PO QHS 11/14/24 05/01/25 sennosides 8.6 mg tablet (senna) 17.2 mg PO DAILY 11/14/24 05/01/25 tizanidine 4 mg tablet 4 mg PO QHS 11/14/24 05/01/25 trazodone 50 mg tablet 50 mg PO QHS depression 11/14/24 05/01/25 umeclidinium 62.5 mcg/actuation 1 inh inhalation DAILY 11/14/24 05/01/25 blister powder for inhalation (Incruse Ellipta) calcium citrate 250 mg PO DAILY 12/05/24 05/01/25 bisacodyl 10 mg rectal suppository 10 mg HI DAILY PRN 01/06/25 05/01/25 ondansetron 4 mg disintegrating 4 mg PO TID-QID PRN 01/06/25 05/01/25 tablet tizanidine 2 mg tablet 2 mg PO Q8H PRN PRN 01/06/25 05/01/25 divalproex 250 mg tablet,delayed 250 mg PO BID 02/18/25 05/01/25 release fluoxetine 60 mg tablet 60 mg PO DAILY 02/18/25 05/01/25 tramadol 50 mg tablet 50 mg PO Q4H PRN 02/18/25 05/01/25 Allergies Allergy/AdvReac Type Severity Reaction Status Date / Time morphine Allergy Unknown Verified 05/01/25 10:49 oxycodone Allergy Unknown Verified 05/01/25 10:49 prednisone Allergy Unknown Verified 05/01/25 10:49 sumatriptan (From Imitrex) Allergy Unknown Verified 05/01/25 10:49 varenicline (From Chantix) Allergy Unknown Verified 05/01/25 10:49 General GEOFFREY: 3 Exam Narrative Exam Narrative: 1.Const: Well-nourished, Well-developed, appearing stated age 2.Eyes: PERRL, no conjunctival injection, and symmetrical lids. Notable exotropia of the right eye 3.ENT: Atraumatic external nose and ears. Dry MM. Neck: Symmetric, trachea midline, No thyromegaly. 4.CVS: +S1/S2, Peripheral pulses 2+ and equal in all extremities. Brisk capillary refill in all extremities. 5.RESP: Unlabored respiratory effort. Clear to auscultation bilaterally. No wheezes rales or rhonchi 6.GI: Soft, Nontender/Nondistended, No hepatosplenomegaly. No guarding or rebound. 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 Mild weakness of the lower extremities bilaterally with +2 strength of the lower extremities bilaterally. 8.Skin: Warm, Dry. multiple small bruises. 9.Neuro: Mild left-sided facial droop which appears to be chronic, however good movement of the face bilaterally. No asymmetry for the upper extremities for strength or movement, no asymmetry for the lower extremities. She demonstrates +1 to +2 strength of the lower extremities bilaterally. +4 strength of the upper extremities bilaterally. Speech is soft, but otherwise clear. 10.Psych: (AAO) x2 Course Lab/Test Results Lab/Test Results: 05/23/25 00:29 Blood Blood Culture - Pending 05/23/25 00:29 Blood Blood Culture - Pending Procedure Arterial Line Date of Procedure: 05/23/25 Time of Procedure: 03:30 Provider that performed the procedure: Remy Christian Indication: BP Monitoring and Hypotension Patient Consented: Verbally Standard Time Out Performed: Yes Sterility: Sterile Local Anesthetic: Lidocaine 1% Amount of anesthetic used(mL): 3 Laterality: Left Insertion Site: Radial Arterial Line Catheter: 20G Arrow Arterial Line Procedure: 1% Lidocaine to skin and subcutaneous tissue with 25g needle, Vessel accessed with needle, Vessel accessed with catheter over needle, Guidewire placed with ease, Catheter placed without resistance and Guidewire removed Ultrasound: Used/Image Saved Number of Attempts( see previous attempts in note section): 1 Dressing: Tegaderm Applied, Chlorhexidine Dressing, BioPatch Applied and Sutured in Place Procedure Tolerated: No Complications and Patient tolerated well Procedure Outcome: Successful Central Line Placement Date of Procedure: 05/23/25 Time of Procedure: 03:26 Provider that performed the procedure: Remy Christian Indication: Central venous access, Definitive access, Emergent access and Hypotension Patient Consented: Verbally Standard Time Out Performed: Yes Sterility: Sterile Local Anesthetic: Lidocaine 1% Amount of anesthetic used(mL): 3 Laterality: Right Insertion Site: Internal Jugular (IJ) Central Line Type: Triple Lumen Catheter Insertion Procedure: 1% Lidocaine to skin and subcutaneous tissue with 25g needle, Vessel accessed with needle, Vessel accessed with catheter over needle, catheter advanced, Guidewire placed with ease, Extension tubing fills with blood, then empties easily with gravity, Dermatotomy (skin wilmar) made with scalpel, Dilator placed without resistance, Introducer/Catheter placed without resistance, Guidewire removed and Claves placed, blood withdrawn, ports flushed and clamped Ultrasound: Used/Image Saved Number of Attempts(see previous attempts in note section): 1 Post Procedure: good blood return Post Procedure X-Ray: tip of catheter in good position Dressing: Tegaderm applied and BioPatch applied Medical Decision Making Exam demonstratesThivirginia is a 64-year-old female who [facility] with past medical history of a prior cerebrovascular accident on the right with chronic left-sided deficits, coronary artery disease, asthma, hypertension, high cholesterol, and a DNR status, who presents today for altered mental status. [facility] staff noted that at 10 PM the patient was doing well. That was the last check. When she was checked in 11 at midnight they noticed that she was notably altered compared to her baseline, EMS was called, blood sugar was normal, she had worsening left-sided deficits, increased weakness and confusion. Blood pressure was noted to be severely low in the 60s. She was brought to the ER for further assessment. Patient on arrival is able to speak with us, she states that she has some pain in her neck. She denies any other chest pain or abdominal pain or other complaints. She denies any other factors. She denies any falls. No other complaints at this time. Multiple clinical bruises over her upper and lower extremities. Lung sounds are clear, no asymmetry for the upper extremities, bilaterally equal weakness of the lower extremities. 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 Chronic left-sided facial droop present. Patient markedly hypotensive in the 60s systolic. Differential includes sepsis, dehydration, stroke. She has no nuchal rigidity or neck stiffness, mild generalized posterior neck tenderness on palpation. Will evaluate for infectious etiologies, get CT imaging, rehydrate as the patient's last echo showed a normal ejection fraction this year. Will monitor closely and reassess. Bedside ultrasound shows evidence of notably diminished IVC that collapses easily, bilateral IJ's also demonstrate evidence of complete collapsibility with inspiration. Patient does appear profoundly fluid deficit. We will aggressively rehydrate. Bedside limited echo shows an unremarkable ejection fraction. 3:37 AM After 2 L of fluid (1 L normal saline 1 L of lactated ringer) patient still remained notably hypotensive, MAP was in the 50s to 40s. However the patient did look clinically improved. She was mentating well, and able to communicate well. Because of the continued low blood pressure, I am still concerned for septic shock. I discussed with the patient my concerns, and the potential need for central line and arterial line. We discussed the risks and benefits of this procedure, and we reflected this against her CODE STATUS of DNR DNI, however she still has a desire for interventions. Patient has consented to the central line, central line was placed without complication. Postprocedural x-ray shows appropriate placement. Art line was placed without complication. Broad-spectrum antibiotics were started early with vancomycin, Zosyn and doxycycline. Patient's oxygen status remained stable. CT imaging shows evidence of opacities in the lower lungs bilaterally, there is also some rectal thickening concerning for proctitis labs show an elevated white count of 17, left shift no bandemia yet. Mild alkalosis with no acidosis. Elevated lactate of 2.2. Electrolytes stable, renal function good. Troponin stable, thyroid function normal. Procalcitonin elevated at 0.68, COVID flu and RSV negative. Still pending urinalysis. Discussed the case with the hospitalist Dr. Butts, he agrees with the assessment and plan. Patient will be admitted to the ICU for further medical management. I suspect aspiration to be a notable component of her symptoms as we did try to give her a sip of water down here and she immediately started coughing. With her chronic stroke deficits I suspect this is a likely concerning etiology. Additionally, CT scan of the head negative, symptomatology is notably clinically inconsistent with stroke. I have extensively reviewed the treatment plan with the patient. I have addressed all patient concerns at this time. I have also discussed the plan with the admitting physician and they agree with the current assessment and plan and have agreed to assume responsibility for the patient. All parties demonstrate verbal understanding and agreement with our assessment and plan at this time. The documentation in this chart was dictated using [employer] dictation software. Please excuse any dictation errors. FINDINGS: Limitations: Images are degraded due to artifact caused by patient motion and arm positioning. No contrast was administered, limiting evaluation for some pathologies. Lungs: Airspace opacities in the posterior lungs. Pleural spaces: No pleural effusion. Heart: No pericardial effusion. Coronary arteries: Coronary artery calcifications. Esophagus: The esophagus is distended with gas and debris. Patient may be at risk for aspiration. Lymph nodes: No acute abnormality. Vasculature: Arterial calcifications. Bones/joints: No acute pertinent abnormality appreciated. Soft tissues: No acute pertinent abnormality appreciated. IMPRESSION: 1. Opacities in the posterior lungs bilaterally, likely atelectasis. Cannot exclude pneumonia. Followup as clinically warranted. 2. Additional findings as above. 3. CT scan of the abdomen and pelvis dictated separately FINDINGS: Limitations: Images are degraded due to artifact caused by patient motion and arm positioning. No contrast was administered, limiting evaluation for some pathologies. Lungs: CT scan of the chest dictated separately. Liver: Borderline hepatomegaly. Gallbladder and biliary ducts: Cholecystectomy with biliary ductal dilatation. Pancreas: No CT evidence for acute pancreatitis. Spleen: No splenomegaly. Adrenal glands: Nodular adrenal thickening. Kidneys and ureters: Right renal cysts. Small nonobstructing right renal calculi. Stomach and bowel: Gastric surgery. No intestinal obstruction is evident. Fluid in nondilated small bowel, nonspecific. Rectal thickening. Retained fecal material throughout the colon. Correlate clinically for history of constipation. Appendix: No evidence of appendicitis. Intraperitoneal space: No free air. Vasculature: Arterial calcifications. Lymph nodes: Nonspecific mesenteric lymph nodes. Urinary bladder: No acute findings. Reproductive: Uterus absent. Bones/joints: No pertinent acute abnormality seen Soft tissues: No pertinent acute abnormality seen. IMPRESSION: 1. Rectal thickening. Consider proctitis, less likely neoplasm. Follow-up as clinically warranted. 2. Fluid filled small bowel, nonspecific and can be a normal finding or reflective of mild inflammation. 3. Additional findings as above. 4. Additional studies dictated separately. Thank you for allowing us to participate in the care of your patient. Dictated and Authenticated by: Stefania Harvey MD 05/23/2025 2:39 AM Eastern Time ([place] & [place]) Quality:SDOH Health Related Social Needs: Health related social needs details Pt lives at [facility]. Critical Care Time Critical Care Time Critical Care Time: Yes Total Critical Care Time: 45 Attestation: Upon my evaluation, this patient had a high probability of imminent or life-threatening deterioration, which required my direct attention, intervention, and personal management. I have personally provided 45 minutes of critical care time exclusive of time spent on separately billable procedures. Time includes review of laboratory data, radiology results, discussion with consultants, and monitoring for potential decompensation. Interventions were performed as documented. [facility] All Active Problems (Updated 05/23/25 @ 04:34 by Freddy Butts) Hypokalemia (Acute) Septic shock (Acute) CVA (cerebral vascular accident) (Chronic) Septic shock (Acute) HLD (hyperlipidemia) (Acute) HTN (hypertension) with goal to be determined (Chronic) Aspiration pneumonia (Acute) Acute hypoxemic respiratory failure (Acute) Weakness (Acute) DNR (do not resuscitate) (Acute) See 11/14/24 COLST: DNR/DNI, yes transfer to the hospital and treat, use trial of antibiotics and IV fluids. No feeding tube. Osteoporosis (Chronic) Advanced care planning/counseling discussion (Acute) Ambulatory dysfunction (Acute) Bipolar 1 disorder (Acute) Anxiety and depression (Chronic) Fracture of left proximal fibula (Acute) Closed fracture of left distal tibia (Acute) Medical History (Updated 05/23/25 @ 04:34 by Freddy Butts) Palliative care encounter Chronic neck pain with history of cervical spinal surgery Smoker Migraine CAD (coronary artery disease) Prediabetes Cervical stenosis of spinal canal Asthma Surgical History History of cholecystectomy open H/O gastric bypass Stented coronary artery Social History Smoking/Tobacco Use Status: Former Tobacco Use Quit Date: 02/23/24 Smoking risk assessment performed?: Yes Alcohol Intake: never Substance use type: marijuana Housing: [facility] Do you feel safe at home: Yes Do you feel safe in your relationship?: Yes POCUS Exam (ED) Limited Cardiac Exam DATE OF EXAM: 05/23/25 TIME OF EXAM: 03:35 PROVIDER THAT PERFORMED THE STUDY: Remy Christian IS THIS A REPEAT EXAM DURING THIS ENCOUNTER: no REASON FOR EXAM: Hypotension and Hypovolemic shock VISUALIZED STRUCTURES: Left ventricle, Right ventricle and Interventricular septum VIEW OBTAINED: Parasternal long-axis PERTINENT FINDINGS/IMPRESSION: IVC inspiratory collapsability and No apparent abnormalities Exam complete
[2025-05-23 00:42] LABS: BE (Venous) 7 mmol/L (-2-3); HCO3 (Venous) 31 mmol/L (23-28); O2 Sat (Venous) 67 %; TCO2 (Venous) 28 mmol/L (24-29); pCO2 (Venous) 48 mmHg (41-51); pO2 (Venous) 35 mmHg
[2025-05-23 00:48] LABS: Abs Immature Grans 0.17 10^3/uL (0.0-0.06); HCT 38.9 % (36.0-46.0); HGB 12.6 g/dL (11.2-15.7); Immature Grans % 1.0 %; MCH 31.7 pg (27.0-33.0); MCHC 32.4 % (32.0-36.0); MCV 98 fL (80-95); MPV 9.3 fL (8.0-11.0); Platelet Count 137 10^3/uL (130-400); RBC 3.98 10^6/uL (3.93-5.22); RDW 14.2 % (11.7-14.6); RDW-SD 51.2 fL; WBC 17.33 10^3/uL (4.4-10.8)
[2025-05-23 01:03] LABS: INR 1.1 (0.9-1.1); PTT Activated 26.0 sec (20.6-30.2); Prothrombin Time 10.6 sec (9.1-11.1)
[2025-05-23 01:12] LABS: ALT 44 U/L (14-59); AST 36 U/L (15-37); Albumin 3.1 g/dL (3.4-5.0); Alkaline Phosphatase 76 U/L (46-116); Anion Gap 6.2 mmol/L (3-11); BUN 39 mg/dL (7-18); Bilirubin, Total 0.4 mg/dL (0.2-1.0); CO2 32.8 mmol/L (21.0-32.0); Calcium 9.3 mg/dL (8.5-10.1); Chloride 99 mmol/L (98-107); Glucose 173 mg/dL (74-106); Potassium 3.9 mmol/L (3.5-5.1); Sodium 138 mmol/L (136-145); Total Protein 6.3 g/dL (6.4-8.2); Troponin I 11 ng/L (<or=51)
[2025-05-23 01:14] LABS: TSH (W/Ref FT4) 1.54 uIU/mL (0.36-3.74)
[2025-05-23] MEDS: Normal Saline 1,000 ML 1000 ML IV (01:15)
[2025-05-23] MEDS: Lactated Ringers 1,000 ML 1000 ML IV (01:16)
[2025-05-23] MEDS: PIPERACILLIN/TAZO 4.5 GM in Normal Saline 100 ML IVPB (01:17)
[2025-05-23 01:18] LABS: Procalcitonin 0.68 ng/mL
[2025-05-23] MEDS: DOXYCYCLINE 100 MG in Normal Saline 100 ML IVPB (01:19)
[2025-05-23] MEDS: Omnipaque 350 MG/ML 100 ML BTL IJ (02:08)
[2025-05-23] MEDS: Normal Saline - Diluent 50 ML VIAL IJ (02:08)
[2025-05-23] MEDS: Normal Saline Flush 10 ML SYR IVP ×4 (02:09→20:13)
--- NOTE | 2025-05-23 02:09 | DI.CT_ITS ---
Exam(s) CT BRAIN NECK CTA EXAM: CT BRAIN NECK CTA CLINICAL HISTORY: hx of stroke, altered, hypotensive. TECHNIQUE: Imaging Protocol: Axial CT angiography was performed with multi- slice acquisition and multi-planar and/or 3D reconstructions. CONTRAST MATERIAL: Intravenous: Omnipaque 350 Contrast volume:70 mL COMPARISON: CT CT HEAD CERVICAL SPINE WO from 01/28/2025 FINDINGS: CTA Neck W: Aortic arch anatomy: The aortic arch anatomy is conventional and there is no significant stenosis at the origin of the great vessels off of the aortic arch. No intimal flap evident. Anterior circulation: Both common carotid arteries ascend with normal luminal diameters. At the level the carotid bulbs and proximal internal carotid arteries there is mild partially calcified bilateral plaque but without hemodynamically significant stenosis evident. Amount of stenosis is less than 20 percent bilaterally. Above this level there is tortuosity in the right internal carotid artery both out significant stenosis. The left internal carotid artery in the upper neck exhibits less tortuosity than the opposite-right side Posterior circulation: Both vertebral arteries originate in conventional fashion off of the subclavian arteries and there is no obvious stenosis at the origin of the vertebral arteries. Both vertebral arteries exhibit normal and approximately equal luminal diameters within the foramen transversarium. Both vertebral arteries contribute to the formation of the basilar artery at the skull base. CTA Brain W: Anterior circulation: Both internal carotid arteries are patent in the skull base-carotid canals as well as within the cavernous sinuses. There is mild calcified mural plaque in the intra cavernous aspects of both ICAs but no significant stenosis at these levels. The supraclinoid aspects of the ICAs are patent. Both A1 segments are patent as are the anterior cerebral arteries and there is no evidence of aneurysm at the level of the anterior communicating artery. Both middle cerebral arteries are patent with no evidence of significant stenosis nor intraluminal thrombus. There also no aneurysms of these vessels. Posterior circulation: Basilar artery ascends without significant stenosis. Distally it gives off superior cerebellar arteries. Above this level it terminates as patent left posterior cerebral artery. The right posterior cerebral artery is fed by posterior communicating artery on the right side of the [id number] (pe rsistent circulation). Above this level the basilar artery terminates as patent bilateral posterior cerebral arteries. There is no evidence of aneurysm at the tip of the basilar artery nor elsewhere in the [id number]. CT BRAIN: There is no evidence of intracranial hemorrhage, mass effect, or shift of midline structures. There are no extra-axial fluid collections. Ventricles are not enlarged or shifted. There are no ring enhancing lesions in the brain and no abnormal meningeal enhancement. IMPRESSION: 1. Patent carotid arteries in the neck. Mild plaque bilaterally at the carotid bulbs but no hemodynamically significant stenosis. 2. Patent vertebral arteries. No significant stenosis nor dissection. 3. Patent intracranial arteries. 4. No acute intracranial findings Preliminary V rad report was reviewed RADIATION DOSE DELIVERED: 2,012.49mGy.cm Total DLP DATA REPOSITORY: All CT scans at this facility are submitted to the National Radiology Data Registry (NRDR) Dose Index Registry (DIR) with the [employer] ([employer]). RADIATION OPTIMIZATION: All CT scans at this facility use at least one of these dose optimization techniques: automated exposure control; mA and/or kV adjustment per patient size (includes targeted exams where dose is matched to clinical indication); or iterative reconstruction.
--- NOTE | 2025-05-23 02:10 | DI.CT_ITS ---
Exam(s) CT CHEST/ABD/PEL WO EXAM: CT CHEST/ABD/PEL WO CLINICAL HISTORY: altered, shock. TECHNIQUE: Imaging Protocol: Axial computed tomography images with coronal and sagittal reformatted images were created and reviewed CONTRAST MATERIAL: Intravenous: none Oral: None COMPARISON: CT CT CHEST PE CTA from 01/06/2025 FINDINGS: CHEST: LUNGS: The previously present infiltrate in the right lower lobe has somewhat cleared. However, there is now infiltrate in the posterior basal segments of both lower lobes, not associated with pleural effusions. Few small benign calcified granulomas in the left lung are noted. MEDIASTINUM: The esophagus is again noted to be dilated. Visualized thyroid unremarkable.No obvious hilar nor mediastinal adenopathy, realized limitations of a non infused study. CARDIAC: Heart size upper normal. There is no pericardial effusion. Thecaliber of the thoracic aorta is within normal limits. OSSEOUS: No significant osseous lesions.No fractures.. ABDOMEN: There is no ascites. There is evidence of previous gastric surgery, possibly bypass, again noted. Anastomosis in left side of the abdomen appears unchanged. The there is no high-grade bowel obstruction. No free air. No abscess. LIVER: There are no obvious focal hepatic lesions evident of this noninfused study. GALLBLADDER/BILIARY: Bladder is surgically absent. CBD is not dilated. PANCREAS: No evidence of obvious pancreatic mass nor dilatation of the pancreatic duct. SPLEEN: Spleen is not enlarged. No obvious intrasplenic lesions. ADRENALS: There are no significant adrenal masses. KIDNEYS: Bilateral extrarenal pelves.. Benign cysts are noted in the right kidney. No follow-up required. Also a few small calculi in the right kidney. No hydronephrosis nor hydroureter. Urinary bladder is partially collapsed. ABDOMINAL AORTA: Calcified but not enlarged. LYMPH NODES: There is no retroperitoneal nor para-aortic adenopathy. ABDOMINAL WALL/GI: No evidence of significant anterior abdominal wall nor inguinal hernia. PELVIS: LYMPH NODES: There is no intrapelvic nor inguinal adenopathy. GI: No evidence of appendicitis.No evidence of sigmoid diverticulitis. URINARY BLADDER: Collapsed. No obvious abnormality. REPRODUCTIVE: Uterus surgically absent. No abnormal adnexal masses. No free fluid in the pelvis. OSSEOUS: No significant osseous lesions. No fractures. IMPRESSION: 1. There infiltrates in posterior basal segments of both lower lobes. No pleural effusions. Esophagus is again noted be dilated in this patient who appears to have had prior gastric surgery. Suspect aspiration pneumonia. 2. Prior cholecystectomy and hysterectomy. No evidence of significant bowel obstruction, free air, nor abscess. 3. There are few nonobstructive calculi in the right kidney. There are extrarenal pelves bilaterally. Other findings as above. Preliminary V rad report was reviewed. RADIATION DOSE DELIVERED: 1,226.18mGy.cm Total DLP DATA REPOSITORY: All CT scans at this facility are submitted to the National Radiology Data Registry (NRDR) Dose Index Registry (DIR) with the [employer] ([employer]). RADIATION OPTIMIZATION: All CT scans at this facility use at least one of these dose optimization techniques: automated exposure control; mA and/or kV adjustment per patient size (includes targeted exams where dose is matched to clinical indication); or iterative reconstruction.
[2025-05-23] MEDS: VANCOMYCIN 1,300 MG in Normal Saline 500 ML 333.3333 MG IVPB (02:17)
--- NOTE | 2025-05-23 02:18 | DI.VRAD_ITS ---
PROCEDURE INFORMATION: Exam: CTA Head Without And With Contrast, Arteriography Exam date and time: 05/23/2025 1:46 AM Age: 64 years old Clinical indication: Stroke-like symptoms; Altered mental status/memory loss and other: Hypotensive; Additional info: HX of stroke, altered, hypotensive TECHNIQUE: Imaging protocol: Computed tomographic angiography of the head without and with contrast. Exam focused on the arteries. 3D rendering (Not supervised by radiologist): MIP and/or 3D reconstructed images were created by the technologist. Radiation optimization: All CT scans at this facility use at least one of these dose optimization techniques: automated exposure control; mA and/or kV adjustment per patient size (includes targeted exams where dose is matched to clinical indication); or iterative reconstruction. Contrast material: [id number]; Contrast volume: 70 ml; Contrast route: INTRAVENOUS (IV); Other technique: STROKE PROTOCOL was implemented. COMPARISON: CT BRAIN NECK CTA 01/06/2025 6:58 AM FINDINGS: ANTERIOR CIRCULATION: Right internal carotid artery: Trace atheromatous calcification is present within the cavernous portions of the right internal carotid arteries. Less than 50% luminal stenosis. Right middle cerebral artery: No occlusion or significant stenosis. No aneurysm. Right anterior cerebral artery: No occlusion or significant stenosis. No aneurysm. Left internal carotid artery: Trace atheromatous calcification is present within the cavernous portions of the left internal carotid arteries. Less than 50% luminal stenosis. Left middle cerebral artery: No occlusion or significant stenosis. No aneurysm. Left anterior cerebral artery: No occlusion or significant stenosis. No aneurysm. POSTERIOR CIRCULATION: Right vertebral artery: No occlusion or significant stenosis. No aneurysm. Left vertebral artery: No occlusion or significant stenosis. No aneurysm. Basilar artery: No occlusion or significant stenosis. No aneurysm. Right posterior cerebral artery: No occlusion or significant stenosis. No aneurysm. Left posterior cerebral artery: No occlusion or significant stenosis. No aneurysm. HEAD: Brain: Normal. No hemorrhage. Unremarkable white matter. No mass effect. Cerebral ventricles: Normal. No ventriculomegaly. Bones: Unremarkable. No acute fracture. Paranasal sinuses: Visualized sinuses are normal. No fluid levels. Mastoid air cells: Visualized mastoids are normal. No mastoid effusion. Soft tissues: Unremarkable. IMPRESSION: No stenosis, occlusion, or aneurysm. ASSESSMENT: ASPECTS ([place] Stroke Program Early CT Score) is 10. PROCEDURE INFORMATION: Exam: CTA Neck Without And With Contrast Exam date and time: 05/23/2025 1:46 AM Age: 64 years old Clinical indication: Stroke-like symptoms; Altered mental status/memory loss and other: Hypotensive; Additional info: HX of stroke, altered, hypotensive TECHNIQUE: Imaging protocol: Computed tomographic angiography of the neck without and with contrast. Exam focused on the cervical segments of the vasculature. 3D rendering (Not supervised by radiologist): MIP and/or 3D reconstructed images were created by the technologist. Radiation optimization: All CT scans at this facility use at least one of these dose optimization techniques: automated exposure control; mA and/or kV adjustment per patient size (includes targeted exams where dose is matched to clinical indication); or iterative reconstruction. Contrast material: [id number]; Contrast volume: 70 ml; Contrast route: INTRAVENOUS (IV); COMPARISON: CT BRAIN NECK CTA 01/06/2025 6:58 AM FINDINGS: Right common carotid artery: No stenosis. No dissection or occlusion. Right internal carotid artery: Mild atheromatous calcifications are present at the right carotid bulb. Right external carotid artery: No occlusion or stenosis of the origin. Left common carotid artery: No stenosis. No dissection or occlusion. Left internal carotid artery: Mild atheromatous calcifications are present at the left carotid bulb. Left external carotid artery: No occlusion or stenosis of the origin. Right vertebral artery: No stenosis. No dissection or occlusion. Left vertebral artery: No stenosis. No dissection or occlusion. Aorta: Atheromatous calcifications are present within the visualized thoracic aorta. Soft tissues: Normal. No significant soft tissue swelling. Bones/joints: Moderate degenerative changes are present throughout the cervical spine including intervertebral disc space narrowing, endplate sclerosis and osteophytosis. Posterior fixation hardware is present at C5-C6. IMPRESSION: No stenosis, occlusion, or aneurysm. REFERENCES: NASCET CRITERIA. The degree of stenosis in the cervical segment of the internal carotid artery is based on NASCET criteria. Normal is no stenosis. Mild is less than 50% stenosis. Moderate is 50-69% stenosis. Severe is 70% to 99% stenosis. Total occlusion is no detectable patent lumen. Dictated and Authenticated by: Sarah Zamorano MD. Orderin Gino Alberto MD
--- NOTE | 2025-05-23 02:40 | DI.VRAD_ITS ---
PROCEDURE INFORMATION: Exam: CT Chest Without Contrast; Diagnostic Exam date and time: 05/23/2025 1:44 AM Age: 64 years old Clinical indication: Other: Altered, shock TECHNIQUE: Imaging protocol: Diagnostic computed tomography of the chest without contrast. 3D rendering (Not supervised by radiologist): MIP and/or 3D reconstructed images were created by the technologist. Radiation optimization: All CT scans at this facility use at least one of these dose optimization techniques: automated exposure control; mA and/or kV adjustment per patient size (includes targeted exams where dose is matched to clinical indication); or iterative reconstruction. COMPARISON: CT CHEST PE CTA 01/06/2025 7:15 AM FINDINGS: Limitations: Images are degraded due to artifact caused by patient motion and arm positioning. No contrast was administered, limiting evaluation for some pathologies. Lungs: Airspace opacities in the posterior lungs. Pleural spaces: No pleural effusion. Heart: No pericardial effusion. Coronary arteries: Coronary artery calcifications. Esophagus: The esophagus is distended with gas and debris. Patient may be at risk for aspiration. Lymph nodes: No acute abnormality. Vasculature: Arterial calcifications. Bones/joints: No acute pertinent abnormality appreciated. Soft tissues: No acute pertinent abnormality appreciated. IMPRESSION: 1. Opacities in the posterior lungs bilaterally, likely atelectasis. Cannot exclude pneumonia. Follow-up as clinically warranted. 2. Additional findings as above. 3. CT scan of the abdomen and pelvis dictated separately. PROCEDURE INFORMATION: Exam: CT Abdomen And Pelvis Without Contrast Exam date and time: 05/23/2025 1:44 AM Age: 64 years old Clinical indication: Other: Altered, shock TECHNIQUE: Imaging protocol: Computed tomography of the abdomen and pelvis without contrast. Radiation optimization: All CT scans at this facility use at least one of these dose optimization techniques: automated exposure control; mA and/or kV adjustment per patient size (includes targeted exams where dose is matched to clinical indication); or iterative reconstruction. COMPARISON: CT PELVIC WO 12/06/2024 7:59 PM FINDINGS: Limitations: Images are degraded due to artifact caused by patient motion and arm positioning. No contrast was administered, limiting evaluation for some pathologies. Lungs: CT scan of the chest dictated separately. Liver: Borderline hepatomegaly. Gallbladder and biliary ducts: Cholecystectomy with biliary ductal dilatation. Pancreas: No CT evidence for acute pancreatitis. Spleen: No splenomegaly. Adrenal glands: Nodular adrenal thickening. Kidneys and ureters: Right renal cysts. Small nonobstructing right renal calculi. Stomach and bowel: Gastric surgery. No intestinal obstruction is evident. Fluid in nondilated small bowel, nonspecific. Rectal thickening. Retained fecal material throughout the colon. Correlate clinically for history of constipation. Appendix: No evidence of appendicitis. Intraperitoneal space: No free air. Vasculature: Arterial calcifications. Lymph nodes: Nonspecific mesenteric lymph nodes. Urinary bladder: No acute findings. Reproductive: Uterus absent. Bones/joints: No pertinent acute abnormality seen. Soft tissues: No pertinent acute abnormality seen. IMPRESSION: 1. Rectal thickening. Consider proctitis, less likely neoplasm. Follow-up as clinically warranted. 2. Fluid filled small bowel, nonspecific and can be a normal finding or reflective of mild inflammation. 3. Additional findings as above. 4. Additional studies dictated separately. Dictated and Authenticated by: Stefania Harvey MD. Orderin Gino Alberto MD
[2025-05-23] MEDS: Norepinephrine in D5W 8 MG/250 ML BAG 9.4 MG IV (02:44)
--- NOTE | 2025-05-23 02:47 | DI.RAD_ITS ---
Exam(s) XR PORTABLE CHEST AP EXAM: XR PORTABLE CHEST AP CLINICAL HISTORY: post central line placement. TECHNIQUE: 2D digital imaging was performed. COMPARISON: Prior chest x-ray 01/28/2021 FINDINGS: Single AP portable view. Distal tip of the right jugular central line is in the lower right atrium. Heart size is upper normal. The mediastinum is not widened. Left lung is clear. There appears to be some infiltrate in the right lower lobe retrocardiac region. No obvious pleural effusions. IMPRESSION: Probable infiltrate in the right lower lobe.Central line as above. DATA REPOSITORY: RADIATION DOSE DELIVERED:
[2025-05-23 02:49] LABS: COVID-19 PCR Negative (Negative); RSV PCR Negative (Negative)
[2025-05-23 02:50] LABS: Troponin I 10 ng/L (<or=51)
--- NOTE | 2025-05-23 02:52 | DI.VRAD_ITS ---
PROCEDURE INFORMATION: Exam: XR Chest Exam date and time: 05/23/2025 2:42 AM Age: 64 years old Clinical indication: Device placement; Other: Central line placement TECHNIQUE: Imaging protocol: Radiologic exam of the chest. Views: 1 view. COMPARISON: CT CHEST/ABD/PEL WO 05/23/2025 1:44 AM FINDINGS: Tubes, catheters and devices: Right central venous catheter terminates in the expected location of the right atrium. Lungs: No focal consolidation seen. Pleural spaces: No large pleural effusion seen. Heart/Mediastinum: No cardiomegaly. Bones/joints: No acute abnormality. IMPRESSION: Right central venous catheter as above. Dictated and Authenticated by: Stefania Harvey MD. Orderin Gino Alberto MD
--- NOTE | 2025-05-23 03:06 | W.PM.HP.N ---
Date of service: 05/23/25 Time of Service: 03:06 Assessment and Plan Assessment and plan (1) Septic shock: Start date: 05/23/25 Status: Acute Assessment and plan: This is a 64-year-old lady who resides at the local half-way status post CVA which was stated to be a right CVA with residual left-sided weakness though by my history and exam he may have more of a history consistent with left CVA with no apparent changes on CTA of the head and neck on this admission. She did have previous MRIs. And also appears to be affecting the posterior circulation with left homonymous hemianopsia. She is at risk for aspiration and imaging did reveal possible aspiration pneumonia which is bilateral lower [place] with worse infiltrates on the right though her exam is not revealing. She presents with hypotension requiring IV fluid resuscitation and now on IV norepinephrine though only requiring low doses. She is a DNR/DNI but does want aggressive treatment of reversible problems. Her mentation did improve with IV hydration. She also may have a possible UTI and both of these are being covered with IV Unasyn and vancomycin. She did receive trip on a box initial therapy in the ED. She will be admitted to the ICU for close monitoring of her MAP to be above 65 with aggressive treatment of possible pneumonia and UTI. Cultures are pending. She remains a DNR/DNI. (2) Aspiration pneumonia: Start date: 05/23/25 Status: Acute Assessment and plan: Possible aspiration with pneumonia causing her presentation with altered mental status and septic shock. Aggressive treatment of hypotension and reversible problems such as pneumonia and UTI. She is on Unasyn for possible aspiration pneumonia. (3) HTN (hypertension) with goal to be determined: Status: Chronic Assessment and plan: Adjust outpatient medical therapy because of hypotension. Reinitiate usual therapy as patient recovers. (4) Anxiety and depression: Status: Chronic Assessment and plan: Continue outpatient medical therapy. (5) CVA (cerebral vascular accident): Status: Chronic Assessment and plan: Patient history is confusing with no MRI report to confirm the location of her stroke and her muscle weaknesses is not prominent on 1 side or the other. She does appear to have a right homonymous hemianopsia which would mean that she had a left posterior circulation stroke in the past. MRI report should be reviewed. Patient should have swallow evaluation before advancing diet. Speech therapy was consulted. (6) CAD (coronary artery disease): Assessment and plan: Patient does not appear to have had a decompensation and she will continue outpatient medical therapy with monitoring. Troponins were negative. History of Present Illness History of Present Illness Chief Complaint: Acute altered mental status at half-way in the evening. Narrative: This is a 64-year-old female patient who resides at the local half-way status post stroke with right visual field defects and mention of possible right CVA with residual left-sided weakness though this is not apparent on ED exam and imaging does not reveal large strokes though MRI is not available. She does have some problems swallowing and may be at risk for aspiration. She was brought to the ED with severe hypotension and sudden onset altered mental status in the late evening with worsening left-sided weakness by report. In the ED she was found to have a markedly elevated leukocytes and no fever reported to the half-way but she did have a fever in the ED over 38 °C. Imaging did reveal bilateral pneumonia worse on the right. She was not hypoxic, tachypneic or tachycardic. Her VBG did reveal slight alkalosis which may have been respiratory with patient having pneumonia and possibly hyperventilating at the half-way. Lactic acid was elevated but procalcitonin was negative. Her urinalysis also was positive for possible infection and culture was pending. She was initiated on triple antibiotics in the ED. She denies cough or abdominal pain and has no urinary symptoms. She is at risk for UTI with her immobility. She also is at risk for aspiration as mentioned because of her previous CVA and trouble swallowing. Her hypotension did respond to IV fluid resuscitation and initiation of norepinephrine to maintain a MAP above 65 in the ED and did have a central line placed for IV access. She was awake and had a very dry mouth with no other complaints with review of systems and interview. The patient did ask that her sister be called to let her know that she is in the hospital. She will be admitted to the ICU for continued blood pressure support and IV hydration as well as IV antibiotic therapy targeting aspiration pneumonia with Unasyn and continuation of vancomycin pending blood cultures and urine culture. She is a DNR/DNI. Review of Systems Narrative: 13 point review of systems otherwise unrevealing or stable. The patient speaks very slowly and is somnolent during part of the exam. PFSH All Active Problems (Updated 05/23/25 @ 05:46 by Freddy Butts) Hypokalemia (Acute) Septic shock (Acute) CVA (cerebral vascular accident) (Chronic) Septic shock (Acute) HLD (hyperlipidemia) (Acute) HTN (hypertension) with goal to be determined (Chronic) Aspiration pneumonia (Acute) Acute hypoxemic respiratory failure (Acute) Weakness (Acute) DNR (do not resuscitate) (Acute) See 11/14/24 COLST: DNR/DNI, yes transfer to the hospital and treat, use trial of antibiotics and IV fluids. No feeding tube. Osteoporosis (Chronic) Advanced care planning/counseling discussion (Acute) Ambulatory dysfunction (Acute) Bipolar 1 disorder (Acute) Anxiety and depression (Chronic) Fracture of left proximal fibula (Acute) Closed fracture of left distal tibia (Acute) Medical History (Updated 05/23/25 @ 05:46 by Freddy Butts) Palliative care encounter Chronic neck pain with history of cervical spinal surgery Smoker Migraine CAD (coronary artery disease) Prediabetes Cervical stenosis of spinal canal Asthma Surgical History History of cholecystectomy open H/O gastric bypass Stented coronary artery Social History Smoking/Tobacco Use Status: Former Tobacco Use Quit Date: 02/23/24 Smoking risk assessment performed?: Yes Alcohol Intake: never Substance use type: marijuana Housing: half-way Do you feel safe at home: Yes Do you feel safe in your relationship?: Yes Meds Allergies and Home Medications Allergies Allergy/AdvReac Type Severity Reaction Status Date / Time morphine Allergy Unknown Verified 05/01/25 10:49 oxycodone Allergy Unknown Verified 05/01/25 10:49 prednisone Allergy Unknown Verified 05/01/25 10:49 sumatriptan (From Imitrex) Allergy Unknown Verified 05/01/25 10:49 varenicline (From Chantix) Allergy Unknown Verified 05/01/25 10:49 Home Medications Medication Instructions Recorded Confirmed Type Lactobacillus rhamnosus GG 10 1 cap PO DAILY 09/16/22 05/23/25 History billion cell capsule (Culturelle) albuterol 90 mcg/actuation aerosol 90 mcg inhalation Q6H PRN PRN 09/16/22 05/01/25 History inhaler atorvastatin 40 mg tablet 40 mg PO QPM 09/16/22 05/23/25 History cholecalciferol (vitamin D3) 25 75 mcg PO HS 09/16/22 05/01/25 History mcg (1,000 unit) tablet clonazepam 0.5 mg tablet (Klonopin) 0.5 mg PO QPM 09/16/22 05/23/25 History cyanocobalamin (vitamin B-12) 1,000 mcg PO HS 09/16/22 05/01/25 History 1,000 mcg tablet (Vitamin B-12) ferrous sulfate 325 mg (65 mg 325 mg PO DIRECTED 09/16/22 05/01/25 History iron) tablet (FeroSul) levothyroxine 50 mcg tablet 50 mcg PO DAILY 09/16/22 05/23/25 History magnesium oxide 400 mg PO QPM 09/16/22 05/23/25 History nitroglycerin 0.4 mg sublingual 0.4 mg sublingual Q5M PRN 09/16/22 05/23/25 History tablet polyethylene glycol 3350 17 gram 17 g PO DAILY 09/16/22 05/23/25 History oral powder packet (Miralax) aspirin 81 mg tablet,delayed 81 mg PO DAILY 05/24/24 05/23/25 History release diaper,brief,adult,disposable 05/24/24 05/23/25 History (Affirm Underwear) docusate sodium 100 mg capsule 100 mg PO BID 05/24/24 05/23/25 History fluticasone furoate 200 1 inh inhalation DAILY 05/24/24 05/23/25 History mcg-vilanterol 25 mcg/dose inhalation powder (Breo Ellipta) acetaminophen 500 mg capsule 1,000 mg PO TID 11/14/24 05/01/25 History fluoxetine 20 mg capsule 20 mg PO DAILY 11/14/24 05/23/25 History omeprazole 20 mg capsule,delayed 40 mg PO DAILY 11/14/24 05/23/25 History release prazosin 5 mg capsule 5 mg PO QHS 11/14/24 05/23/25 History sennosides 8.6 mg tablet (senna) 17.2 mg PO DAILY 11/14/24 05/23/25 History tizanidine 4 mg tablet 4 mg PO QHS 11/14/24 05/23/25 History trazodone 50 mg tablet 50 mg PO QHS depression 11/14/24 05/23/25 History umeclidinium 62.5 mcg/actuation 1 inh inhalation DAILY 11/14/24 05/23/25 History blister powder for inhalation (Incruse Ellipta) calcium citrate 250 mg PO DAILY 12/05/24 05/23/25 History bisacodyl 10 mg rectal suppository [address] DAILY PRN 01/06/25 05/23/25 History ondansetron 4 mg disintegrating 4 mg PO TID-QID PRN 01/06/25 05/23/25 History tablet tizanidine 2 mg tablet 2 mg PO Q8H PRN PRN 01/06/25 05/23/25 History divalproex 250 mg tablet,delayed 250 mg PO BID 02/18/25 05/23/25 History release fluoxetine 60 mg tablet 60 mg PO DAILY 02/18/25 05/23/25 History tramadol 50 mg tablet 50 mg PO Q4H PRN 02/18/25 05/23/25 History isosorbide mononitrate 30 mg 30 mg PO DAILY atherosclerotic 05/23/25 05/23/25 History tablet,extended release 24 hr heart disease lidocaine 5 % topical patch 1 patch topical DAILY left upper 05/23/25 05/23/25 History back pain Exam Narrative Exam Narrative: General: Patient appears older than stated age, she is thin lying in bed speaking in a slow monotonous tone but answering questions appropriately. She is alert and oriented at least to person and place. HEENT: Normocephalic, eyes with pupils equal and reactive to light symmetrically, extraocular movement intact and sclera anicteric. Oropharynx with very dry mucosa and patient is edentulous. Neck: Supple without JVD. Back: Kyphotic without CVA tenderness. Lungs: Fair aeration with no focalizing rales or rhonchi. No expiratory wheeze. Breast: Exam deferred. Heart: Irregular rhythm with normal rate, 2/6 systolic murmur over left sternal border. No gallop or rub. Abdomen: Scaphoid contour, soft and nontender to palpation with no palpable hepatosplenomegaly. Bowel sounds are decreased but present in all quadrants. No guarding or rebound. Genitalia/rectal: Exam deferred. Extremities: Without clubbing, cyanosis or grossly pitting edema. Fair capillary refill. Skin: Hot, dry and pale. Decreased turgor. Neuro: Patient does have loss of vision in the right visual field testing with the patient holding 1 eye and any other eye close with decreased vision over right visual field. Cranial nerves II through XII otherwise grossly intact with her homonymous hemianopsia being most likely central from her previous stroke. No focal muscle weakness though she is generally weak in the lower extremities. No tremor. Psych: Flattened affect with depressed mood. No abnormal thought processes. Remote and recent memory grossly intact. Results Imaging Imaging Studies: Exam: XR Chest Exam date and time: 05/23/2025 2:42 AM Age: 64 years old Clinical indication: Device placement; Other: Central line placement TECHNIQUE: Imaging protocol: Radiologic exam of the chest. Views: 1 view. COMPARISON: CT CHEST/ABD/PEL WO 05/23/2025 1:44 AM FINDINGS: Tubes, catheters and devices: Right central venous catheter terminates in the expected location of the right atrium. Lungs: No focal consolidation seen. Pleural spaces: No large pleural effusion seen. Heart/Mediastinum: No cardiomegaly. Bones/joints: No acute abnormality. IMPRESSION: Right central venous catheter as above. Exam: CT Chest Without Contrast; Diagnostic Exam date and time: 05/23/2025 1:44 AM Age: 64 years old Clinical indication: Other: Altered, shock COMPARISON: CT CHEST PE CTA 01/06/2025 7:15 AM FINDINGS: Limitations: Images are degraded due to artifact caused by patient motion and arm positioning. No contrast was administered, limiting evaluation for some pathologies. Lungs: Airspace opacities in the posterior lungs. Pleural spaces: No pleural effusion. Heart: No pericardial effusion. Coronary arteries: Coronary artery calcifications. Esophagus: The esophagus is distended with gas and debris. Patient may be at risk for aspiration. Lymph nodes: No acute abnormality. Vasculature: Arterial calcifications. Bones/joints: No acute pertinent abnormality appreciated. Soft tissues: No acute pertinent abnormality appreciated. IMPRESSION: 1. Opacities in the posterior lungs bilaterally, likely atelectasis. Cannot exclude pneumonia. Follow-up as clinically warranted. 2. Additional findings as above. 3. CT scan of the abdomen and pelvis dictated separately. PROCEDURE INFORMATION: Exam: CT Abdomen And Pelvis Without Contrast Exam date and time: 05/23/2025 1:44 AM Age: 64 years old Clinical indication: Other: Altered, shock COMPARISON: CT PELVIC WO 12/06/2024 7:59 PM FINDINGS: Limitations: Images are degraded due to artifact caused by patient motion and arm positioning. No contrast was administered, limiting evaluation for some pathologies. Lungs: CT scan of the chest dictated separately. Liver: Borderline hepatomegaly. Gallbladder and biliary ducts: Cholecystectomy with biliary ductal dilatation. Pancreas: No CT evidence for acute pancreatitis. Spleen: No splenomegaly. Adrenal glands: Nodular adrenal thickening. Kidneys and ureters: Right renal cysts. Small nonobstructing right renal calculi. Stomach and bowel: Gastric surgery. No intestinal obstruction is evident. Fluid in nondilated small bowel, nonspecific. Rectal thickening. Retained fecal material throughout the colon. Correlate clinically for history of constipation. Appendix: No evidence of appendicitis. Intraperitoneal space: No free air. Vasculature: Arterial calcifications. Lymph nodes: Nonspecific mesenteric lymph nodes. Urinary bladder: No acute findings. Reproductive: Uterus absent. Bones/joints: No pertinent acute abnormality seen. Soft tissues: No pertinent acute abnormality seen. IMPRESSION: 1. Rectal thickening. Consider proctitis, less likely neoplasm. Follow-up as clinically warranted. 2. Fluid filled small bowel, nonspecific and can be a normal finding or reflective of mild inflammation. 3. Additional findings as above. 4. Additional studies dictated separately. Exam: CTA Head Without And With Contrast, Arteriography Exam date and time: 05/23/2025 1:46 AM Age: 64 years old Clinical indication: Stroke-like symptoms; Altered mental status/memory loss and other: Hypotensive; Additional info: HX of stroke, altered, hypotensive COMPARISON: CT BRAIN NECK CTA 01/06/2025 6:58 AM FINDINGS: ANTERIOR CIRCULATION: Right internal carotid artery: Trace atheromatous calcification is present within the cavernous portions of the right internal carotid arteries. Less than 50% luminal stenosis. Right middle cerebral artery: No occlusion or significant stenosis. No aneurysm. Right anterior cerebral artery: No occlusion or significant stenosis. No aneurysm. Left internal carotid artery: Trace atheromatous calcification is present within the cavernous portions of the left internal carotid arteries. Less than 50% luminal stenosis. Left middle cerebral artery: No occlusion or significant stenosis. No aneurysm. Left anterior cerebral artery: No occlusion or significant stenosis. No aneurysm. POSTERIOR CIRCULATION: Right vertebral artery: No occlusion or significant stenosis. No aneurysm. Left vertebral artery: No occlusion or significant stenosis. No aneurysm. Basilar artery: No occlusion or significant stenosis. No aneurysm. Right posterior cerebral artery: No occlusion or significant stenosis. No aneurysm. Left posterior cerebral artery: No occlusion or significant stenosis. No aneurysm. HEAD: Brain: Normal. No hemorrhage. Unremarkable white matter. No mass effect. Cerebral ventricles: Normal. No ventriculomegaly. Bones: Unremarkable. No acute fracture. Paranasal sinuses: Visualized sinuses are normal. No fluid levels. Mastoid air cells: Visualized mastoids are normal. No mastoid effusion. Soft tissues: Unremarkable. IMPRESSION: No stenosis, occlusion, or aneurysm. ASSESSMENT: ASPECTS ([place] Stroke Program Early CT Score) is 10. PROCEDURE INFORMATION: Exam: CTA Neck Without And With Contrast Exam date and time: 05/23/2025 1:46 AM Age: 64 years old Clinical indication: Stroke-like symptoms; Altered mental status/memory loss and other: Hypotensive; Additional info: HX of stroke, altered, hypotensive COMPARISON: CT BRAIN NECK CTA 01/06/2025 6:58 AM FINDINGS: Right common carotid artery: No stenosis. No dissection or occlusion. Right internal carotid artery: Mild atheromatous calcifications are present at the right carotid bulb. Right external carotid artery: No occlusion or stenosis of the origin. Left common carotid artery: No stenosis. No dissection or occlusion. Left internal carotid artery: Mild atheromatous calcifications are present at the left carotid bulb. Left external carotid artery: No occlusion or stenosis of the origin. Right vertebral artery: No stenosis. No dissection or occlusion. Left vertebral artery: No stenosis. No dissection or occlusion. Aorta: Atheromatous calcifications are present within the visualized thoracic aorta. Soft tissues: Normal. No significant soft tissue swelling. Bones/joints: Moderate degenerative changes are present throughout the cervical spine including intervertebral disc space narrowing, endplate sclerosis and osteophytosis. Posterior fixation hardware is present at C5-C6. IMPRESSION: No stenosis, occlusion, or aneurysm. Labs 05/23/25 00:37 05/23/25 00:37 Labs: Laboratory Results - last 24 hr 05/23/25 05/23/25 05/23/25 00:37 02:05 02:15 WBC 17.33 H RBC 3.98 Hgb 12.6 Hct 38.9 MCV 98 H MCH 31.7 MCHC 32.4 RDW 14.2 Plt Count 137 MPV 9.3 Immature Gran % 1.0 Neutrophils % 92.3 Lymphocytes % 0.8 Monocytes % 5.3 Eosinophils % 0.1 Basophils % 0.5 Nucleated RBC % 0.0 Absolute Neutrophils 16.00 H Absolute Lymphocytes 0.14 L Absolute Monocytes 0.92 H Absolute Eosinophils 0.02 Absolute Basophils 0.09 PT 10.6 INR 1.1 APTT 26.0 VBG pH 7.42 H VBG pCO2 48 VBG pO2 35 VBG HCO3 31 H VBG Total CO2 28 VBG O2 Saturation 67 VBG Base Excess 7 H VBG Lactate 2.2 H* Sodium 138 Potassium 3.9 Chloride 99 Carbon Dioxide 32.8 H Anion Gap 6.2 BUN 39 H Creatinine 0.9 Est GFR (CKD-EPI 2020) 71.39 Glucose 173 H Calcium 9.3 Total Bilirubin 0.4 AST 36 ALT 44 Alkaline Phosphatase 76 Troponin I 11 10 Total Protein 6.3 L Albumin 3.1 L Procalcitonin 0.68 TSH 1.54 COVID-19 Source Nasopharynx SARS-CoV-2 (PCR) Negative Influenza Type A (PCR) Negative Influenza Type B (PCR) Negative RSV (PCR) Negative Last Vital Signs Temp 35.9 C L 05/23/25 00:25 Pulse 64 05/23/25 00:25 Resp 22 05/23/25 00:25 BP 76/64 L 05/23/25 00:25 Pulse Ox 90 L 05/23/25 00:25 Time Spent Time spent with Patient: >75 minutes Time was spent: preparing to see the patient(eg.review tests), obtaining and/or reviewing separately otained hiistory, ordering medications,tests, procedures, indepentently interpreting results and care coordination
[2025-05-23 04:31] LABS: Glucose Negative (Negative)
[2025-05-23 06:15] LABS: MRSA PCR Negative (Negative)
[2025-05-23 06:22] LABS: BE (Venous) 3 mmol/L (-2-3); HCO3 (Venous) 27 mmol/L (23-28); O2 Sat (Venous) 96 %; TCO2 (Venous) 25 mmol/L (24-29); pCO2 (Venous) 43 mmHg (41-51); pO2 (Venous) 78 mmHg
[2025-05-23 06:58] LABS: HCT 34.8 % (36.0-46.0); HGB 11.3 g/dL (11.2-15.7); MCH 32.1 pg (27.0-33.0); MCHC 32.5 % (32.0-36.0); MCV 99 fL (80-95); MPV 9.6 fL (8.0-11.0); Platelet Count 115 10^3/uL (130-400); RBC 3.52 10^6/uL (3.93-5.22); RDW 14.6 % (11.7-14.6); RDW-SD 52.5 fL; WBC 15.47 10^3/uL (4.4-10.8)
[2025-05-23 07:06] LABS: ALT 79 U/L (14-59); AST 125 U/L (15-37); Albumin 2.4 g/dL (3.4-5.0); Alkaline Phosphatase 70 U/L (46-116); Anion Gap 8.8 mmol/L (3-11); BUN 32 mg/dL (7-18); Bilirubin, Total 0.5 mg/dL (0.2-1.0); CO2 27.2 mmol/L (21.0-32.0); Calcium 8.4 mg/dL (8.5-10.1); Chloride 106 mmol/L (98-107); Glucose 117 mg/dL (74-106); Potassium 3.5 mmol/L (3.5-5.1); Sodium 142 mmol/L (136-145); Total Protein 5.2 g/dL (6.4-8.2)
[2025-05-23 07:11] LABS: Troponin I 9 ng/L (<or=51)
[2025-05-23] MEDS: Levothyroxine 50 MCG TAB PO (07:32)
[2025-05-23] MEDS: AMPICILLIN/SULBACTAM 3 GM in Normal Saline 100 ML IVPB ×3 (07:32→20:09)
--- NOTE | 2025-05-23 08:13 | INITIAL_ITS ---
Date of service: 05/23/25 Time of Service: 08:13 Care Management Initial Assmt Initial Assessment Reason for Hospitalization: altered mental status secondary to pneumonia and UTI Functional Status/Living Situation Patient Presentation: Jeannie presented to the ED very early this morning with c/o altered mental status believed due to pneumonia and UTI. Jeannie resides with her at [facility]. She has a history of CVA with right sided weakness. Today Jeannie is back to her baseline and will likely return to [facility] tomorrow. She has only just come off of the nor-epinepherine that was needed for BP support, and will require continued monitoring over night. Jeannie did state that she would like to go home and is feeling much better. Jeannie was pleasant with CM, but she received a phone call and we did not speak for long. Town of Residence: [facility] Resides with: Spouse (Lives with her , Brandon, at the [facility]) Significant Other/Family: Out of area Caregiver/Guardian: [facility] Employment Status: Disabled Instrumental Activities of Daily Living (ADLs): Requires support Activities/Hobbies/SocialSupport: Enjoys spending time with her . Medications Medication Management: No Issues/Barriers identified Physical Functioning/Mobility Assistive Device: FWW and wheelchair Advance Directives Advance Directives: Do you have an Advance Directive: Y , 09:47 AD On File at [facility]: Y 01/08/23, 09:47 Date Asked 05/21/25 05/21/25, 15:09 AD Date Reviewed COLST On File at [facility] Yes 01/07/25, 07:42 COLST Date Scanned 11/20/24 01/07/25, 07:42 Code Status Resuscitation Status DNR/DNI Insurance Coverage/Financial Issues Insurance: Medicare Part A & B - [id number] Medicaid [facility] Care Team Visit Care Team Role Provider Type Jolly Davenport Primary Care Provider ADV PRACTICE REGISTERED NURSE Susanne Chisholm, RETAIL CLIENT SOLUTIONS ANALYST Other Providers SPEECH LANGUAGE PATHOLOGIST Tom Del Angel, RETAIL CLIENT SOLUTIONS ANALYST Other Providers SPEECH LANGUAGE PATHOLOGIST Nilam Albright Other Providers SPEECH LANGUAGE PATHOLOGIST Taylor Babin, RETAIL CLIENT SOLUTIONS ANALYST Other Providers SPEECH LANGUAGE PATHOLOGIST Alycia Tinsley, RETAIL CLIENT SOLUTIONS ANALYST Other Providers SPEECH LANGUAGE PATHOLOGIST Remy R Gino, DO Emergency Provider [facility] STAFF PHYSICIAN Freddy Butts Admit Provider NON-NESTOR STAFF PHYSICIAN Attending Provider Discharge Potential Discharge Needs: Other (facility provider f/u) Anticipated Barriers to Discharge: None Identified Patient/Family Education Needs: Review discharge instructions, discuss Ask Me Three Transportation: [facility] Transportation: Wheel chair van Plan: Anticipate, Jeannie will return to [facility], where she resides, once medically ready. She will follow up with her facility providers, palliative care, and her plan of care. Jeannie will be transported via [facility] wheelchair van. CM will continue to follow. Social Determinants of Health Screening Will the Patient Participate in the Screening?: Declined to provide PFSH All Active Problems (Updated 05/23/25 @ 05:46 by Freddy Butts) Hypokalemia (Acute) Septic shock (Acute) CVA (cerebral vascular accident) (Chronic) Septic shock (Acute) HLD (hyperlipidemia) (Acute) HTN (hypertension) with goal to be determined (Chronic) Aspiration pneumonia (Acute) Acute hypoxemic respiratory failure (Acute) Weakness (Acute) DNR (do not resuscitate) (Acute) See 11/14/24 COLST: DNR/DNI, yes transfer to the hospital and treat, use trial of antibiotics and IV fluids. No feeding tube. Osteoporosis (Chronic) Advanced care planning/counseling discussion (Acute) Ambulatory dysfunction (Acute) Bipolar 1 disorder (Acute) Anxiety and depression (Chronic) Fracture of left proximal fibula (Acute) Closed fracture of left distal tibia (Acute) Medical History (Updated 05/23/25 @ 05:46 by Freddy Butts) Palliative care encounter Chronic neck pain with history of cervical spinal surgery Smoker Migraine CAD (coronary artery disease) Prediabetes Cervical stenosis of spinal canal Asthma Surgical History History of cholecystectomy open H/O gastric bypass Stented coronary artery Social History Smoking/Tobacco Use Status: Former Tobacco Use Quit Date: 02/23/24 Smoking risk assessment performed?: Yes Alcohol Intake: never Substance use type: marijuana Housing: assisted living facility Do you feel safe at home: Yes Do you feel safe in your relationship?: Yes
[2025-05-23] MEDS: Umeclidinium 7 CAP INHALER 1 CAP IH (08:49)
[2025-05-23] MEDS: Budesonide/Formoterol 160/4.5 6 GM 60 PUFF INH IH ×2 (08:49→20:10)
[2025-05-23] MEDS: Lidocaine 5% Patch 1 PATCH TP (08:54)
[2025-05-23] MEDS: Acetaminophen 500 MG TAB 1000 MG PO (08:54)
[2025-05-23] MEDS: Lactobacillus Acidophilus CAP 1 CAP PO (08:54)
[2025-05-23] MEDS: FLUoxetine 20 MG CAP 60 MG PO (08:54)
[2025-05-23] MEDS: Enoxaparin 40 MG/0.4 ML SYR SC (08:55)
[2025-05-23] MEDS: Calcium Citrate 950 MG TAB PO (08:55)
[2025-05-23] MEDS: Senna TAB 1 TAB PO (08:55)
[2025-05-23] MEDS: Docusate Sodium 100 MG CAP PO ×2 (08:55→20:10)
[2025-05-23] MEDS: Divalproex 250 MG TABEC PO ×2 (08:55→20:11)
[2025-05-23] MEDS: Aspirin E.C. 81 MG TABEC PO (08:55)
[2025-05-23] MEDS: Isosorbide Mononitrate 30 MG TABCR PO (08:55)
[2025-05-23] MEDS: Omeprazole 20 MG CAPCR 40 MG PO (08:55)
--- NOTE | 2025-05-23 09:00 | W.PC.ACHO ---
Registration Status: ADM IN Primary Language: Preferred Language: ED Information & Data Chief Complaint AMS/LOC 05/23/25 00:25 Triage Note Arrived via EMS who were 05/23/25 00:25 called to [facility] because they think the pt is having a stroke. EMS states BP low enroute 60s systolic. Pt's baseline allegedly up and about Medical / Surgical History (Last Updated 05/23/25 @ 03:44 by Freddy Butts) Palliative care encounter Chronic neck pain with history of cervical spinal surgery Smoker Migraine CAD (coronary artery disease) Prediabetes Cervical stenosis of spinal canal Asthma (Last Reviewed 05/23/25 @ 03:06 by Freddy Butts) History of cholecystectomy H/O gastric bypass Stented coronary artery Most Recent Vital Signs Temperature 36.9 C 05/23/25 05:50 Temperature Source Temporal Artery Scan 05/23/25 05:50 Pulse 57 L 05/23/25 05:10 Pulse 57 L 05/23/25 05:10 Respiratory Rate 24 05/23/25 05:10 Respiratory Effort Normal 05/23/25 05:50 Respiratory Depth Normal 05/23/25 05:50 Respiratory Pattern Normal 05/23/25 05:50 Blood Pressure 85/47 L 05/23/25 03:17 Blood Pressure Mean 57 05/23/25 03:17 Blood Pressure Position Sitting 05/23/25 00:25 Pulse Oximetry 99 05/23/25 08:50 Oxygen Delivery Method Room Air 05/23/25 08:50 Oxygen Flow Rate 0 05/23/25 08:50 Pain Level 6 05/23/25 05:10 Arterial Systolic 79 05/23/25 04:30 Arterial Diastolic 62 05/23/25 04:30 Arterial Mean 85 05/23/25 05:10 Allergies morphine Allergy (Verified 05/01/25 10:49) Unknown oxycodone Allergy (Verified 05/01/25 10:49) Unknown prednisone Allergy (Verified 05/01/25 10:49) Unknown sumatriptan (From Imitrex) Allergy (Verified 05/01/25 10:49) Unknown varenicline (From Chantix) Allergy (Verified 05/01/25 10:49) Unknown Active Medications Generic Name Dose Route Start Last Admin Trade Name Freq PRN Reason Stop Dose Admin Acetaminophen 1,000 mg 05/23/25 08:30 05/23/25 08:54 Acetaminophen 500 Mg Tab PO 1,000 mg TID MARIA VICTORIA Administration Acidophilus/Pectin 1 cap 05/23/25 08:30 05/23/25 08:54 Lactobacillus Acidophilus Cap PO 1 cap DAILY MARIA VICTORIA Administration Aspirin 81 mg 05/23/25 08:30 05/23/25 08:55 Aspirin E.C. 81 Mg Tabec PO 81 mg DAILY MARIA VICTORIA Administration Budesonide/Formoterol Fumarate 2 puff 05/23/25 08:30 05/23/25 08:49 Budesonide/Formoterol 160/4.5 6 Gm 60 Puff Inh IH 2 puff BID MARIA VICTORIA Administration Calcium Citrate 950 mg 05/23/25 08:30 05/23/25 08:55 Calcium Citrate 950 Mg Tab PO 950 mg DAILY MARIA VICTORIA Administration Divalproex Sodium 250 mg 05/23/25 08:30 05/23/25 08:55 Divalproex 250 Mg Tabec PO 250 mg BID MARIA VICTORIA Administration Docusate Sodium 100 mg 05/23/25 08:30 05/23/25 08:55 Docusate Sodium 100 Mg Cap PO 100 mg BID MARIA VICTORIA Administration Enoxaparin Sodium 40 mg 05/23/25 08:30 05/23/25 08:55 Enoxaparin 40 Mg/0.4 Ml Syr SC 40 mg DAILY MARIA VICTORIA Administration Fluoxetine HCl 60 mg 05/23/25 08:30 05/23/25 08:54 Fluoxetine 20 Mg Cap PO 60 mg DAILY MARIA VICTORIA Administration Ampicillin Sodium/Sulbactam 100 mls @ 200 mls/hr 05/23/25 08:00 05/23/25 07:32 Sodium 3 gm/ Sodium Chloride IVPB 200 mls/hr Q6H MARIA VICTORIA Administration Isosorbide Mononitrate 30 mg 05/23/25 08:30 05/23/25 08:55 Isosorbide Mononitrate 30 Mg Tabcr PO 30 mg DAILY MARIA VICTORIA Administration Levothyroxine Sodium 50 mcg 05/23/25 06:00 05/23/25 07:32 Levothyroxine 50 Mcg Tab PO 50 mcg 0600 MARIA VICTORIA Administration Lidocaine 1 patch 05/23/25 08:30 05/23/25 08:54 Lidocaine 5% Patch TP 1 patch DAILY MARIA VICTORIA Administration Omeprazole 40 mg 05/23/25 08:30 05/23/25 08:55 Omeprazole 20 Mg Capcr PO 40 mg DAILY MARIA VICTORIA Administration Sennosides 1 tab 05/23/25 08:30 05/23/25 08:55 Senna Tab PO 1 tab DAILY MARIA VICTORIA Administration Sodium Chloride 0 ml 05/23/25 00:28 05/23/25 07:43 Normal Saline Flush 10 Ml Syr IVP 40 ml PRN PRN Administration Sodium Chloride 0 ml 05/23/25 08:30 05/23/25 08:55 Normal Saline Flush 10 Ml Syr IVP 10 ml BID MARIA VICTORIA Administration Sodium Chloride 50 ml 05/23/25 02:15 05/23/25 02:08 Normal Saline - Diluent 50 Ml Vial IJ 50 ml DIRECTED MARIA VICTORIA Administration Umeclidinium [place] 1 cap 05/23/25 08:30 05/23/25 08:49 Umeclidinium 7 Cap Inhaler IH 1 puff DAILY MARIA VICTORIA Administration IV IV Catheter Type [Right Triple Lumen Subclavian External Jugular] IV Catheter Type [Right Saline Lock Antecubital] IV Catheter Type [Left Saline Lock Antecubital] IV Catheter Gauge [Right 20 Antecubital] IV Catheter Gauge [Left 18 Antecubital] Diet Orders Category Date Time Status Heart Healthy Eating [DIET] Nutrition 05/23/25 Breakfast Active Diagnostics 05/23/25 05/23/25 05/23/25 Range/Units 12:00 06:10 04:45 WBC 15.47 H (4.4-10.8) 10^3/uL RBC 3.52 L (3.93-5.22) 10^6/uL Hgb 11.3 (11.2-15.7) g/dL Hct 34.8 L (36.0-46.0) % MCV 99 H (80-95) fL MCH 32.1 (27.0-33.0) pg MCHC 32.5 (32.0-36.0) % RDW 14.6 (11.7-14.6) % Plt Count 115 L (130-400) 10^3/uL MPV 9.6 (8.0-11.0) fL Immature Gran % % Neutrophils % % Lymphocytes % % Monocytes % % Eosinophils % % Basophils % % Nucleated RBC % (0.0-0.3) % Absolute Neutrophils (1.2-6.7) 10^3/uL Absolute Lymphocytes (1.2-3.4) 10^3/uL Absolute Monocytes (0.1-0.8) 10^3/uL Absolute Eosinophils (0.0-0.7) 10^3/uL Absolute Basophils (0.0-0.2) 10^3/uL PT (9.1-11.1) sec INR (0.9-1.1) APTT (20.6-30.2) sec VBG pH 7.41 (7.31-7.41) VBG pCO2 43 (41-51) mmHg VBG pO2 78 mmHg VBG HCO3 27 (23-28) mmol/L VBG Total CO2 25 (24-29) mmol/L VBG O2 Saturation 96 % VBG Base Excess 3 (-2-3) mmol/L VBG Lactate 0.9 (<or=2.0) mmol/L Sodium 142 (136-145) mmol/L Potassium 3.5 (3.5-5.1) mmol/L Chloride 106 (98-107) mmol/L Carbon Dioxide 27.2 (21.0-32.0) mmol/L Anion Gap 8.8 (3-11) mmol/L BUN 32 H (7-18) mg/dL Creatinine 0.7 (0.55-1.02) mg/dL Est GFR (CKD-EPI 2020) 96.52 (mL/min/1.73m2) Glucose 117 H (74-106) mg/dL Calcium 8.4 L (8.5-10.1) mg/dL Total Bilirubin 0.5 (0.2-1.0) mg/dL AST 125 H (15-37) U/L ALT 79 H (14-59) U/L Alkaline Phosphatase 70 (46-116) U/L Troponin I 9 (<or=51) ng/L Total Protein 5.2 L (6.4-8.2) g/dL Albumin 2.4 L (3.4-5.0) g/dL Procalcitonin ng/mL TSH (0.36-3.74) uIU/mL Urine Color (Yellow) Urine Clarity (Clear) Urine pH (5-8) Ur Specific [place] (1.005-1.025) Urine Protein (Neg-Trace) mg/dL Urine Ketones (Negative) mg/dL Urine Blood (Negative) Urine Nitrite (Negative) Urine Bilirubin (Negative) Urine Urobilinogen (Up to 0.2) mg/dL Ur Leukocyte Esterase (Negative) Urine RBC (0-2) HPF Urine WBC (0-5) HPF Ur Epithelial Cells (Negative) HPF Urine Crystals (Negative) HPF Urine Bacteria (Negative) HPF Urine Casts (Negative) LPF Urine Mucus (Negative) Ur Culture Indicated? Urine Glucose (Negative) mg/dL Random Vancomycin Pending COVID-19 Source SARS-CoV-2 (PCR) (Negative) Influenza Type A (PCR) (Negative) Influenza Type B (PCR) (Negative) RSV (PCR) (Negative) MRSA (TEM-PCR) Negative (Negative) 05/23/25 05/23/25 05/23/25 Range/Units 03:50 02:15 02:05 WBC (4.4-10.8) 10^3/uL RBC (3.93-5.22) 10^6/uL Hgb (11.2-15.7) g/dL Hct (36.0-46.0) % MCV (80-95) fL MCH (27.0-33.0) pg MCHC (32.0-36.0) % RDW (11.7-14.6) % Plt Count (130-400) 10^3/uL MPV (8.0-11.0) fL Immature Gran % % Neutrophils % % Lymphocytes % % Monocytes % % Eosinophils % % Basophils % % Nucleated RBC % (0.0-0.3) % Absolute Neutrophils (1.2-6.7) 10^3/uL Absolute Lymphocytes (1.2-3.4) 10^3/uL Absolute Monocytes (0.1-0.8) 10^3/uL Absolute Eosinophils (0.0-0.7) 10^3/uL Absolute Basophils (0.0-0.2) 10^3/uL PT (9.1-11.1) sec INR (0.9-1.1) APTT (20.6-30.2) sec VBG pH (7.31-7.41) VBG pCO2 (41-51) mmHg VBG pO2 mmHg VBG HCO3 (23-28) mmol/L VBG Total CO2 (24-29) mmol/L VBG O2 Saturation % VBG Base Excess (-2-3) mmol/L VBG Lactate (<or=2.0) mmol/L Sodium (136-145) mmol/L Potassium (3.5-5.1) mmol/L Chloride (98-107) mmol/L Carbon Dioxide (21.0-32.0) mmol/L Anion Gap (3-11) mmol/L BUN (7-18) mg/dL Creatinine (0.55-1.02) mg/dL Est GFR (CKD-EPI 2020) (mL/min/1.73m2) Glucose (74-106) mg/dL Calcium (8.5-10.1) mg/dL Total Bilirubin (0.2-1.0) mg/dL AST (15-37) U/L ALT (14-59) U/L Alkaline Phosphatase (46-116) U/L Troponin I 10 (<or=51) ng/L Total Protein (6.4-8.2) g/dL Albumin (3.4-5.0) g/dL Procalcitonin ng/mL TSH (0.36-3.74) uIU/mL Urine Color Yellow (Yellow) Urine Clarity Sl Cloudy (Clear) Urine pH 5.5 (5-8) Ur Specific [place] 1.010 (1.005-1.025) Urine Protein Trace (Neg-Trace) mg/dL Urine Ketones 15 H (Negative) mg/dL Urine Blood Trace-intact H (Negative) Urine Nitrite Negative (Negative) Urine Bilirubin Negative (Negative) Urine Urobilinogen 0.2 (Up to 0.2) mg/dL Ur Leukocyte Esterase Negative (Negative) Urine RBC 3-5 H (0-2) HPF Urine WBC 3-5 (0-5) HPF Ur Epithelial Cells Few (Negative) HPF Urine Crystals Negative (Negative) HPF Urine Bacteria Few (Negative) HPF Urine Casts Negative (Negative) LPF Urine Mucus Trace (Negative) Ur Culture Indicated? C&S Done As Ordered Urine Glucose Negative (Negative) mg/dL Random Vancomycin COVID-19 Source Nasopharynx SARS-CoV-2 (PCR) Negative (Negative) Influenza Type A (PCR) Negative (Negative) Influenza Type B (PCR) Negative (Negative) RSV (PCR) Negative (Negative) MRSA (TEM-PCR) (Negative) 05/23/25 Range/Units 00:37 WBC 17.33 H (4.4-10.8) 10^3/uL RBC 3.98 (3.93-5.22) 10^6/uL Hgb 12.6 (11.2-15.7) g/dL Hct 38.9 (36.0-46.0) % MCV 98 H (80-95) fL MCH 31.7 (27.0-33.0) pg MCHC 32.4 (32.0-36.0) % RDW 14.2 (11.7-14.6) % Plt Count 137 (130-400) 10^3/uL MPV 9.3 (8.0-11.0) fL Immature Gran % 1.0 % Neutrophils % 92.3 % Lymphocytes % 0.8 % Monocytes % 5.3 % Eosinophils % 0.1 % Basophils % 0.5 % Nucleated RBC % 0.0 (0.0-0.3) % Absolute Neutrophils 16.00 H (1.2-6.7) 10^3/uL Absolute Lymphocytes 0.14 L (1.2-3.4) 10^3/uL Absolute Monocytes 0.92 H (0.1-0.8) 10^3/uL Absolute Eosinophils 0.02 (0.0-0.7) 10^3/uL Absolute Basophils 0.09 (0.0-0.2) 10^3/uL PT 10.6 (9.1-11.1) sec INR 1.1 (0.9-1.1) APTT 26.0 (20.6-30.2) sec VBG pH 7.42 H (7.31-7.41) VBG pCO2 48 (41-51) mmHg VBG pO2 35 mmHg VBG HCO3 31 H (23-28) mmol/L VBG Total CO2 28 (24-29) mmol/L VBG O2 Saturation 67 % VBG Base Excess 7 H (-2-3) mmol/L VBG Lactate 2.2 H* (<or=2.0) mmol/L Sodium 138 (136-145) mmol/L Potassium 3.9 (3.5-5.1) mmol/L Chloride 99 (98-107) mmol/L Carbon Dioxide 32.8 H (21.0-32.0) mmol/L Anion Gap 6.2 (3-11) mmol/L BUN 39 H (7-18) mg/dL Creatinine 0.9 (0.55-1.02) mg/dL Est GFR (CKD-EPI 2020) 71.39 (mL/min/1.73m2) Glucose 173 H (74-106) mg/dL Calcium 9.3 (8.5-10.1) mg/dL Total Bilirubin 0.4 (0.2-1.0) mg/dL AST 36 (15-37) U/L ALT 44 (14-59) U/L Alkaline Phosphatase 76 (46-116) U/L Troponin I 11 (<or=51) ng/L Total Protein 6.3 L (6.4-8.2) g/dL Albumin 3.1 L (3.4-5.0) g/dL Procalcitonin 0.68 ng/mL TSH 1.54 (0.36-3.74) uIU/mL Urine Color (Yellow) Urine Clarity (Clear) Urine pH (5-8) Ur Specific [place] (1.005-1.025) Urine Protein (Neg-Trace) mg/dL Urine Ketones (Negative) mg/dL Urine Blood (Negative) Urine Nitrite (Negative) Urine Bilirubin (Negative) Urine Urobilinogen (Up to 0.2) mg/dL Ur Leukocyte Esterase (Negative) Urine RBC (0-2) HPF Urine WBC (0-5) HPF Ur Epithelial Cells (Negative) HPF Urine Crystals (Negative) HPF Urine Bacteria (Negative) HPF Urine Casts (Negative) LPF Urine Mucus (Negative) Ur Culture Indicated? Urine Glucose (Negative) mg/dL Random Vancomycin COVID-19 Source SARS-CoV-2 (PCR) (Negative) Influenza Type A (PCR) (Negative) Influenza Type B (PCR) (Negative) RSV (PCR) (Negative) MRSA (TEM-PCR) (Negative) 05/23/25 03:50 Urine Culture - Pending Urine - Cath Hernandez Indwelling 05/23/25 01:21 Blood Culture - Pending Blood 05/23/25 00:37 Blood Culture - Pending Blood [id number] Documentation Fingerstick Glucose Start: 05/23/25 00:36 Freq: Status: Active Protocol: Activity Type Activity Date Activity User E-sign Co-sign Detail Recorded Client Recorded Date Recorded By Document 05/23/25 00:35 ANNALISE ELAINE(3) [id number] 05/23/25 00:36 ANNALISE ELAINE(4) Intake and Output - 24 Hour Total 05/23/25 00:23 thru 05/23/25 08:25 Intake Total 2700.000 Balance 2700.000 Weight 64.2 kg Intake: IV 2700.000 Falls Risk Assessment History of Falls Previous History 05/23/25 04:27 Contributing Factors Confusion,Unstable, 05/23/25 04:27 Impairments,Incontinence Ambulatory Aids Uses ambulatory device 05/23/25 04:27 Tubes/Lines None 05/23/25 04:27 Gait Evaluation W/no contributing factors 05/23/25 04:27 Cognition Cognitive impairment 05/23/25 04:27 Fall Total Score 67 05/23/25 04:27 Level of Risk High Risk 05/23/25 04:27 Problems (Last Updated 05/23/25 @ 03:44 by Freddy Butts) Septic shock (Acute) CVA (cerebral vascular accident) (Chronic) Septic shock (Acute) HTN (hypertension) with goal to be determined (Chronic) Aspiration pneumonia (Acute) Anxiety and depression (Chronic) v v v v v v v v v Sending and/or Receiving Nurses: Please use comment section below to note any information pertinent to the patient hand-off not included above. Information / Comments: Report received from: FABIANA Linder
--- NOTE | 2025-05-23 11:57 | W.SPSTE ---
Date of service: 05/23/25 Time of Service: 11:40 Subjective Clinical (Bedside) Swallow Evaluation Speech Language Pathology Referred by: Dr Butts Referral Type: Clinical Swallow Evaluation Reason for Referral/HPI: Jeannie Rico is a 64 yo female with PMH significant for prior CVA with residual weakness, gastric bypass, GERD on Omeprazole, and hx prior hospitalization for aspiration pneumonia in December 2024. She lives in a nursing facility and was found to have altered mental status late last evening. Jeannie has since returned to baseline- currently alert/oriented. [employer]CH[employer]IC IMPRESSIONS & RECOMMENDATIONS: Suspect recurrent aspiration pneumonia to be due to reflux/esophageal dysfunction. Jeannie's primary complaints with regards to swallowing include food sticking in lower esophageal region (occasionally in throat). She states she is overdue for an endoscopy and reports history dilation 3-5 years ago. She is on Omeprazole but admits to usually laying down after meals. Education provided re: importance of remaining upright after meals (60-90 min) to reduce risk for aspiration pneumonitis. She agreed to this. Bedside swallow evaluation is otherwise unremarkable, with no overt s/s aspiration appreciated. Recommend diet modifications as outlined below. This is her baseline diet as she is edentulous. *Recommend consideration of esophageal workup in outpatient, as per reasons above. FURTHER [employer] WASHER MECHANIC SERVICES: No further [employer] AND WASHER MECHANIC services indicated Diet Recommendations: SOLIDS - L6 Soft & Bite Sized LIQUIDS - Thin liquids MEDICATIONS - As tolerated, whole with liquid SUPERVISION - Independent REFLUX PRECAUTIONS: - [place] upright for all meals & remain upright at least 60-90 min afterwards - Small bites and chew well - Favor softer/moist/cut up foods SUBJECTIVE: Patient received alert/awake, oriented, conversant, agreeable to evaluation Pain Reported? None PO Trials Assessed: Ice IDDSI 0 Thin Liquids - water via straw IDDSI 6 Soft & Bite Size Solid - Diced peaches Oral Mechanism Examination: Patient is edentulous. Oral mucosa is WFL. Cranial Nerve Assessment: CN V – Trigeminal Facial Sensation WNL Jaw Strength/ROM WNL WNL CN VII- Facial WNL labial ROM, strength, coordination. WNL lingual sensation WNL CN IX – Glossopharyngeal WNL palatal elevation with phonation. No evidence of nasal emissions WNL CN X – Vagus WNL Vocal quality and volume. Strong/sharp volitional cough WNL CX XII – Hypoglossal WNL lingual ROM, strength, coordination WNL Oral Phase Findings: Prolonged oral phase due to edentulous status, WFL for trials assessed Pharyngeal Phase Findings: WFL Salma Swallow Protocol Results: PASS ASSESSMENT: Further [employer]CH[employer]IC Services not indicated Recommendation at Discharge: no further [employer]CH[employer]IC services Suggested Referrals: Gastroenterology Recommended Procedures: Consider endoscopy Education Provided to: Nursing, SAUSAGE STRINGER, patient Topics Addressed: [employer]CH[employer]IC findings & reflux precaution s PLAN: Eval only [employer]CH[employer]IC CPT Code: 93334 Clinical Swallowing Evaluation TOTAL TIME: 20 Minutes 1140-12pm
[2025-05-23 13:42] LABS: Vancomycin, Random 8.5 ug/mL
--- NOTE | 2025-05-23 13:42 | PHA.REVIEW2 ---
Pharmacy Admission Review Admission Clinical Review Admission Pharmacy Review: Septic shock (Acute) Septic shock (Acute) Aspiration pneumonia (Acute) morphine Allergy (Verified 05/01/25 10:49) Unknown oxycodone Allergy (Verified 05/01/25 10:49) Unknown prednisone Allergy (Verified 05/01/25 10:49) Unknown sumatriptan (From Imitrex) Allergy (Verified 05/01/25 10:49) Unknown varenicline (From Chantix) Allergy (Verified 05/01/25 10:49) Unknown Resuscitation Status DNR/DNI Height 5 ft 4 in Weight 64.2 kg Pharmacy Admission Review Renal Dosing Renal Dosing: BUN 32 mg/dL (7-18) H 05/23/25 06:10 Creatinine 0.7 mg/dL (0.55-1.02) 05/23/25 06:10 Medications needing adjustments: Reviewed (CrCl 57.55 mL/min) List of meds needing interventions: Current medications are okay Anticoagulation Anticoagulation: Hgb 11.3 g/dL (11.2-15.7) 05/23/25 06:10 Hct 34.8 % (36.0-46.0) L 05/23/25 06:10 Plt Count 115 10^3/uL (130-400) L 05/23/25 06:10 INR 1.1 (0.9-1.1) 05/23/25 00:37 Creatinine 0.7 mg/dL (0.55-1.02) 05/23/25 06:10 DVT Prophylaxis: Reviewed Medications: Enoxaparin (40mg daily) Relevant Labs Relevant Labs: Sodium 142 mmol/L (136-145) 05/23/25 06:10 Potassium 3.5 mmol/L (3.5-5.1) 05/23/25 06:10 Chloride 106 mmol/L (98-107) 05/23/25 06:10 Electrolytes, C-Reactive P, ESR: Reviewed (AST/ALT 125/79) Cardiac Review Cardiac Review: Troponin I 9 ng/L (<or=51) 05/23/25 06:10 Blood Pressure 108/53 1115 Blood Pressure 107/48 1029 Blood Pressure 106/71 0836 Blood Pressure 117/55 0827 Blood Pressure 117/62 0811 Blood Pressure 120/56 0757 Blood Pressure 128/74 0640 Blood Pressure 85/47 0317 Blood Pressure 123/52 0303 Blood Pressure 105/74 0246 BP, HR, EF%: Reviewed (HR 59) List meds needing interventions: Has order for isosorbide CR 30mg daily QTc Review QTc: Reviewed (425 from 05/23/25) IV to PO Switch IV Medications: Reviewed (Unasyn and vancomycin) Home Meds Home Med List reviewed: Intervened Relevent Home Meds Not ordered & why?: Breo (substituted with Symbicort per pharmacy protocol), tramadol (PRN) Sent nurse a message to confirm fluoxetine dose (60mg daily vs 80mg daily). Waiting to hear back. Current Meds Current Medication Order Review: Intervened Comments: Discontinued norepinephrine infusion order - no longer needed, verified with provider Changed IV ED access order Patient had 2 orders for acetaminophen, one scheduled and one as needed. Asked provider if patient needed both ordered. Per provider only wants the as needed order. Canceled scheduled order. Added 2nd PRN to bisacodyl order per pharmacy protocol Changed vitamin B12 order from 100mcg tablets to 500mcg tablets (dose is 1000mcg daily) Changed nitroglycerin frequency per pharmacy protocol Changed omeprazole timing from 0830 to 0730 per pharmacy protocol Pharmacy Antibiotic Review Relevant Labs: Relevant Labs 05/23/25 00:37 Procalcitonin 0.68 Pharmacy Antibiotic Activity: C/S review and Reviewed, no change Comments: Patient is on Unasyn and vancomycin, day 1, for aspiration pneumonia and septic shock. Based on vancomycin level, current dose is 1000mg q12h with predicted AUC of 578. Repeat level if any significant renal function changes or prolonged treatment required. WBC decreased from 17.33 and blood/urine cultures pending.
[2025-05-23] MEDS: VANCOMYCIN/WATER (PEG) 1 GM/200 ML BAG IVPB (14:47)
--- NOTE | 2025-05-23 15:39 | CHAPLAIN ---
Jeannie was resting in the dark, watching tv when I visited. She said she was admitted last night and hasn't slept much. She looked tired. She seems comfortable being here. I explained my role and offered support.
[2025-05-23] MEDS: Cyanocobalamin 500 MCG TAB 1000 MCG PO (20:10)
[2025-05-23] MEDS: Atorvastatin 40 MG TAB PO (20:10)
[2025-05-23] MEDS: Magnesium Oxide 400 MG TAB PO (20:11)
[2025-05-23] MEDS: traZODone 50 MG TAB PO (20:11)
[2025-05-23] MEDS: Cholecalciferol (Vitamin D3) 1,000 UNIT TAB 1000 UNITS PO (20:11)
[2025-05-23] MEDS: clonazePAM 0.5 MG TAB PO (20:11)
[2025-05-23] MEDS: tiZANidine 4 MG TABLET PO (20:11)
[2025-05-23] MEDS: Prazosin 5 MG CAP PO (20:11)
[2025-05-24] VITALS (23 sets, daily range): BP systolic 91–130; BP diastolic 47–81; PULSE 44–67; RESP 11–32; TEMP 36–37.2; O2SAT 86–99
--- NOTE | 2025-05-24 | DI.US_ITS ---
Exam(s) US ABDOMEN EXAM: US ABDOMEN CLINICAL HISTORY: epigastric tenderness, elevated AST/ALT TECHNIQUE: Ultrasound of complete upper abdomen performed using standard protocol. COMPARISON: CT CT CHEST/ABD/PEL WO from 05/23/2025 US POCUS EXAM from 05/23/2025 FINDINGS: There is no ascites evident. LIVER: There are no hepatic lesions evident nor obvious dilatation of intrahepatic ducts. GALLBLADDER/BILIARY: Gallbladder is again noted be surgically absent. The common hepatic duct ismildly dilated, measuring up to 11mm. Probably related to post cholecystectomy status. PANCREAS: There is no evidence of obvious pancreatic mass nor dilatation of the pancreatic duct. Pancreatic tail was less than optimally visualized due to bowel gas in this area. SPLEEN: Not visualized due to bowel gas in this region. Spleen, however, appeared unremarkable on yesterday's CT scan. KIDNEYS:Kidneys exhibit normal size with no evidence of solid mass. There is a single 1 cm benign cyst in each kidney, not requiring further workup. There is a small nonobstructive calculus in the right kidney is also seen on recent CT scan. No hydronephrosis. ABDOMINAL AORTA: There is no evidence of abdominal aortic aneurysm. IVC: Normal diameter where visualized. IMPRESSION: 1. Gallbladder surgically absent. The CBD is dilated. This is probably related to post cholecystectomy status but correlation with blood work recommended. 2. Tail the pancreas and spleen are not able to be visualized due to bowel gas in this region. However, both of these were shown to be unremarkable on yesterday's CT scan. 3. Small nonobstructive calculus noted in lower pole region of the right kidney. No hydronephrosis. DATA REPOSITORY:
[2025-05-24] MEDS: Patch Removal 1 EACH TP ×2 (00:22→21:47)
[2025-05-24] MEDS: Acetaminophen 325 MG TAB 650 MG PO ×2 (01:01→23:21)
[2025-05-24] MEDS: AMPICILLIN/SULBACTAM 3 GM in Normal Saline 100 ML IVPB ×4 (02:19→19:59)
[2025-05-24] MEDS: VANCOMYCIN/WATER (PEG) 1 GM/200 ML BAG IVPB (02:53)
[2025-05-24] MEDS: Levothyroxine 50 MCG TAB PO (05:28)
[2025-05-24] MEDS: Normal Saline Flush 10 ML SYR IVP ×3 (05:28→20:04)
[2025-05-24] MEDS: Normal Saline 1,000 ML 125 ML IV ×2 (06:48→17:09)
[2025-05-24 06:55] LABS: HCT 32.2 % (36.0-46.0); HGB 10.4 g/dL (11.2-15.7); MCH 32.2 pg (27.0-33.0); MCHC 32.3 % (32.0-36.0); MCV 100 fL (80-95); MPV 9.6 fL (8.0-11.0); RBC 3.23 10^6/uL (3.93-5.22); RDW 14.5 % (11.7-14.6); RDW-SD 53.1 fL; WBC 8.39 10^3/uL (4.4-10.8)
[2025-05-24 07:05] LABS: ALT 355 U/L (14-59); AST 394 U/L (15-37); Albumin 2.0 g/dL (3.4-5.0); Alkaline Phosphatase 115 U/L (46-116); Anion Gap 7.5 mmol/L (3-11); BUN 22 mg/dL (7-18); Bilirubin, Total 0.4 mg/dL (0.2-1.0); CO2 29.5 mmol/L (21.0-32.0); Calcium 8.4 mg/dL (8.5-10.1); Chloride 104 mmol/L (98-107); Glucose 92 mg/dL (74-106); Potassium 3.0 mmol/L (3.5-5.1); Sodium 141 mmol/L (136-145); Total Protein 4.7 g/dL (6.4-8.2)
[2025-05-24 07:09] LABS: Platelet Count 94 10^3/uL (130-400)
--- NOTE | 2025-05-24 08:24 | W.PM.PROGNOT ---
Date of Service Date of service: 05/24/25 Time of Service: 08:27 Assessment and Plan Assessment and plan (1) Septic shock: Start date: 05/23/25 Status: Acute Assessment and plan: Initially septic and hypotensive after fluids, on norepinephrine 05/22-05/23 at low doses. Source appears to be pneumonia. Vitals have stabilized but blood pressure still low normal, urine output adequate. WBC has normalized. Per cardiology notes on 05/01, pulse was low then and BP low normal, recommended stopping imdur. Will stop this. Cultures negative. With newly elevated LFTs and low platelets, get tick panel, resume doxycycline (2) Aspiration pneumonia: Start date: 05/23/25 Status: Acute Assessment and plan: She is on Unasyn for possible aspiration pneumonia and Vancomycin I am concerned for development of transaminitis, see below. Get MRSA swab, stop vanco if negative. STUDENT SUCCESS COACH eval reassuring. Even so, I am concerned about clonezepam affecting mental status overnight. Try lower dose. (3) Transaminitis: Status: Acute Assessment and plan: New this admission. A/w low platelets, get tick panel. Septic shock could have been trigger, but we didn't see renal dysfunction. Antibiotics could cause KINSEY but none are common causes. She doesn't have symptoms of DRESS Some tenderness. Admission CT w/o contrast did not show liver pathology. Get abd u/s. Bili okay, get INR and hepatitis panel. (4) HTN (hypertension) with goal to be determined: Status: Chronic Assessment and plan: Only on prazosin and imdur as outpatient, imdur was meant to be stopped. Holding prazosin for now. (5) CVA (cerebral vascular accident): Status: Chronic Assessment and plan: Patient history is confusing, MRI after the event in December was non-focal without acute infarct. Current exam is not focal. Continue aspirin and statin. (6) CAD (coronary artery disease): Assessment and plan: No chest pain. Troponins were negative on admission. Continue ASA/statin. Recent echocardiogram 04/18 reassuring. (7) Hypokalemia: Status: Acute Assessment and plan: Mg okay. Replace orally. Subjective Subjective Patient reports: no new complaints; denies diarrhea, nausea, vomiting or fever Interval history since last seen: Seen by STUDENT SUCCESS COACH, no concerns about her swallow Off norepinephrine at 8am 05/23, to floor status at 7pm She feels okay this morning. Still a little lightheaded, generally weak. No chest pain, not SOB at rest on 1 liter NC. Minimal cough. She feels like she could eat. Exam Narrative Exam Narrative: GEN: A little sleepy intially, but becomes alert and oriented x 3, appropriate, but slightly slow to respond to questions. Lungs: rales right base, otherwise CTAB. Normal effort on 1 liter NC CV: isabelle, regular, no M/G/R ABD: +BS, soft, mild epigastric tenderness. no organomegaly/masses palpable, no guarding/rebound. Ext: no c/c/edema, warm. Objective Last Vital Signs Temp 37.2 C 05/24/25 03:30 Pulse 45 L 05/24/25 06:10 Resp 20 05/24/25 06:10 BP 92/47 L 05/24/25 06:10 Pulse Ox 96 05/24/25 06:10 Laboratory Results - last 24 hr 05/23/25 05/24/25 13:10 05:35 WBC 8.39 RBC 3.23 L Hgb 10.4 L Hct 32.2 L MCV 100 H MCH 32.2 MCHC 32.3 RDW 14.5 Plt Count 94 L MPV 9.6 Sodium 141 Potassium 3.0 L Chloride 104 Carbon Dioxide 29.5 Anion Gap 7.5 BUN 22 H Creatinine 0.5 L Est GFR (CKD-EPI 2020) 104.67 Glucose 92 Calcium 8.4 L Total Bilirubin 0.4 AST 394 H ALT 355 H Alkaline Phosphatase 115 Total Protein 4.7 L Albumin 2.0 L Random Vancomycin 8.5 Time Spent with Patient Time Spent with Patient: >50 minutes Time was spent: preparing to see the patient(eg.review tests), obtaining and/or reviewing separately otained hiistory, ordering medications,tests, procedures, referring, communicating with other health managed care analyst, indepentently interpreting results, counseling the patient and care coordination
[2025-05-24] MEDS: Polyethylene Glycol 3350 17 GM PACKET PO (08:30)
[2025-05-24] MEDS: Enoxaparin 40 MG/0.4 ML SYR SC (08:30)
[2025-05-24] MEDS: Lidocaine 5% Patch 1 PATCH TP (08:31)
[2025-05-24] MEDS: Aspirin E.C. 81 MG TABEC PO (08:32)
[2025-05-24] MEDS: Omeprazole 20 MG CAPCR 40 MG PO (08:32)
[2025-05-24] MEDS: Divalproex 250 MG TABEC PO ×2 (08:32→20:03)
[2025-05-24] MEDS: Senna TAB 1 TAB PO (08:32)
[2025-05-24] MEDS: Lactobacillus Acidophilus CAP 1 CAP PO (08:33)
[2025-05-24] MEDS: Calcium Citrate 950 MG TAB PO (08:33)
[2025-05-24] MEDS: Docusate Sodium 100 MG CAP PO ×2 (08:33→20:03)
[2025-05-24] MEDS: Ferrous Sulfate 325 MG TAB PO (08:33)
[2025-05-24] MEDS: FLUoxetine 20 MG CAP 80 MG PO (08:34)
[2025-05-24] MEDS: Budesonide/Formoterol 160/4.5 6 GM 60 PUFF INH IH ×2 (08:34→19:48)
[2025-05-24] MEDS: Umeclidinium 7 CAP INHALER 1 CAP IH (08:35)
[2025-05-24] MEDS: Potassium Chloride 20 MEQ TABCR 40 MEQ PO ×3 (08:45→20:05)
--- NOTE | 2025-05-24 10:43 | PDOC.CMPRO ---
Date of service: 05/24/25 Time of Service: 10:43 Care Management Progress Note Progress Note Text Progress Note Text: Jeannie was awake and lying in bed when CM met with her. She is admitted to the ICU for medication management and close monitoring s/p septic shock (secondary to aspiration pneumonia.) She is smiling and shares that she feels much better. She is planning to return to [facility] once medically ready, facility is notified. CM will follow. Discharge Potential Discharge Needs: Other (Follow up with facility/community providers) Anticipated Barriers to Discharge: Medical Status Patient/Family Education Needs: Review discharge instructions, discuss Ask Me Three Transportation: [facility] Transportation: Wheel chair van Plan: Anticipate, Jeannie will return to [facility], where she resides, once medically ready. She will follow up with her facility providers, palliative care, and her plan of care. Jeannie will be transported via [facility] wheelchair van. CM updated [facility] of potential to return over the weekend. CM will continue to follow. Social Determinants of Health Screening Social Determinants of health last assessed in clinic: 05/23/25 Will the Patient Participate in the Screening?: Declined to provide Do you worry about having a steady place to live?: no Problems where you live: no known problems In the past 12 months, have you had to go without electric, gas, oil or water in your home?: no Has lack of transportation kept you from medical appointments or from doing things needed for daily living?: no Has anyone in your life made you feel unsafe or unsupported?: no How hard is it for you to pay for the very basics like food, housing, medical care, and heating? Would you say it is:: Not hard at all Do you want help finding or keeping work or a job?: I do not need or want help If for any reason you need help with day-to-day activities such as bathing, preparing meals, shopping, managing finances, etc., do you get the help you need?: I get all the help I need How often do you feel lonely or isolated from those around you?: Never Do you speak a language other than Polish at home?: No Does the patient want assistance with any of the above?: No
[2025-05-24] MEDS: Doxycycline Hyclate 100 MG CAP PO ×2 (11:07→20:10)
[2025-05-24 12:05] LABS: MRSA PCR Negative (Negative)
--- NOTE | 2025-05-24 14:46 | PT.INIE ---
PT Notes Visit Reasons: Septic shock, Aspiration Pneumonia Inpatient Physical Therapy Evaluation Date: 05/24/2025 Referring Doctor: Dr. Jack PT Orders: PT CONSULT: safety consult for d/c Precautions: Fall precautions Patient Profile/Admitting Diagnosis: septic shock, aspiration pneumonia PMHX: CVA in 2004 Social History/Home Situation: Lives in a Retirement where she gets physical therapy each day Current Functional Limitations: ambulates to the bathroom and back independently with a RW but if she walks farther than that she has to call for assistance, does not need to manage any stairs Equipment Owned/DME: RW, wheelchair Subjective: Pt admitted with septic shock after she was found to have AMS and significant hypotension. Systolic blood pressure was in the 60s. She states she feels much better today and is hoping to go home soon. She is A+Ox4 currently. Objective: General Observation: Resting comfortably in bed, agreeable to PT, tele, IV, FC in place Mental Status: A+Ox4 Pain: minor pain noted in between her shoulder blades Vital Signs: monitored by nursing ROM: -able to actively flex bilateral shoulders overhead -limited DF ROM both actively and passively observed on right Strength: -forest and conservation worker strength slightly less on right but still functional, left is strong -able to perform SLR, heel slide, DF/PF on LLE without issue -unable to perform SLR or heel slide on RLE, able to actively perform DF in supine but this is difficult Bed Mobility/Transfers: -supine to sitting w/SBA -sitting to supine w/min assist for RLE -sitting to standing w/min assist -standing to sitting w/CGA Gait: ambulates 20 ft w/RW and CGA - demonstrates increased hip flexion and slight ER during swing phase to compensate for foot drop Balance: Static Sitting: good Dynamic Sitting: good Static Standing: fair Dynamic Standing: fair - able to perform marching in place but requires RW for UE support Special Tests: Mobility Limitations Standardized Measure [facility] AM-PAC 6 clicks Basic Mobility Inpatient Short Form: Raw Score: 17 CMS Score: 50.57% Informed Consent/Education: Patient instructed in purpose of PT consult and plan of care. Assessment: Pt is currently A+Ox4 and functioning close to her baseline. She is requiring min assist to get into bed due to RLE weaknesses but it is likely that this was present before admission due to a previous stroke. She was able to ambulate about 20 ft w/CGA and a RW but does demonstrate a right foot drop that increases her risk for falling. She is cleared to return back to her living facility when medically cleared but will continue to benefit from PT services while in the hospital to optimize her level of function and decrease her fall risk. Patient is assessed as a [x] Low [id number] complexity based on the following: History: Low Examination: Low Presentation: Low Decision Making: Low Goals: Goals X1 week 1. Supine-Sit w/SBA 2. Sit-Supine w/SBA 3. Sit-Stand w/CGA 4. Stand-Sit w/SBA 5. Gait - 50 ft w/CGA and use of RW Plan of Care/Treatment Plan: 1-2x/day, 7 days/week x 1 week. Plan of care has been reviewed with the STUDENT OFFICER providing the service under Physical Therapy direction. Initiate Physical Therapy intervention for strengthening, bed mobility, transfers, gait, stairs, balance training, use of assistive device. DISCHARGE RECOMMENDATIONS: Discharge back to SNF with continued PT services TREATMENT CODE/TIME: Brian aquino ([id number]) x1 - 30 min
[2025-05-24] MEDS: DEXTROSE 5%-LACTATED RINGERS 1,000 ML 50 ML IV (17:52)
[2025-05-24] MEDS: Cholecalciferol (Vitamin D3) 1,000 UNIT TAB 1000 UNITS PO (20:01)
[2025-05-24] MEDS: Atorvastatin 40 MG TAB PO (20:01)
[2025-05-24] MEDS: Cyanocobalamin 500 MCG TAB 1000 MCG PO (20:02)
[2025-05-24] MEDS: Magnesium Oxide 400 MG TAB PO (20:03)
[2025-05-24] MEDS: traZODone 50 MG TAB PO (20:05)
[2025-05-24] MEDS: tiZANidine 4 MG TABLET PO (20:05)
[2025-05-24] MEDS: clonazePAM 0.5 MG TAB 0.25 MG PO (20:31)
--- NOTE | 2025-05-24 23:26 | W.PC.ACHO ---
Registration Status: ADM IN Primary Language: Preferred Language: ED Information & Data Chief Complaint AMS/LOC 05/23/25 00:25 Triage Note Arrived via EMS who were 05/23/25 00:25 called to [facility] because they think the pt is having a stroke. EMS states BP low enroute 60s systolic. Pt's baseline allegedly up and about Medical / Surgical History (Last Updated 05/23/25 @ 03:44 by Freddy Butts) Palliative care encounter Chronic neck pain with history of cervical spinal surgery Smoker Migraine CAD (coronary artery disease) Prediabetes Cervical stenosis of spinal canal Asthma (Last Reviewed 05/23/25 @ 03:06 by Freddy Butts) History of cholecystectomy H/O gastric bypass Stented coronary artery Most Recent Vital Signs Temperature 36 C L 05/24/25 22:57 Temperature Source Temporal Artery Scan 05/24/25 22:57 Pulse 56 L 05/24/25 22:57 Pulse 54 L 05/24/25 22:00 Respiratory Rate 18 05/24/25 22:57 Respiratory Effort Normal 05/23/25 05:50 Respiratory Depth Normal 05/23/25 05:50 Respiratory Pattern Normal 05/23/25 05:50 Blood Pressure 127/81 05/24/25 22:57 Blood Pressure Mean 96 05/24/25 22:57 Blood Pressure Position Sitting 05/23/25 00:25 Pulse Oximetry 98 05/24/25 22:57 Oxygen Delivery Method Nasal Cannula 05/24/25 22:57 Oxygen Flow Rate 2 05/24/25 22:57 Pain Level 2 05/24/25 22:25 Arterial Systolic 79 05/23/25 04:30 Arterial Diastolic 62 05/23/25 04:30 Arterial Mean 85 05/23/25 05:10 Allergies morphine Allergy (Verified 05/01/25 10:49) Unknown oxycodone Allergy (Verified 05/01/25 10:49) Unknown prednisone Allergy (Verified 05/01/25 10:49) Unknown sumatriptan (From Imitrex) Allergy (Verified 05/01/25 10:49) Unknown varenicline (From Chantix) Allergy (Verified 05/01/25 10:49) Unknown Active Medications Generic Name Dose Route Start Last Admin Trade Name Freq PRN Reason Stop Dose Admin Acetaminophen 650 mg 05/23/25 05:38 05/24/25 23:21 Acetaminophen 325 Mg Tab PO 650 mg Q4H PRN PRN Administration Acidophilus/Pectin 1 cap 05/23/25 08:30 05/24/25 08:33 Lactobacillus Acidophilus Cap PO 1 cap DAILY MARIA VICTORIA Administration Aspirin 81 mg 05/23/25 08:30 05/24/25 08:32 Aspirin E.C. 81 Mg Tabec PO 81 mg DAILY MARIA VICTORIA Administration Atorvastatin Calcium 40 mg 05/23/25 20:00 05/24/25 20:01 Atorvastatin 40 Mg Tab PO 40 mg QPM MARIA VICTORIA Administration Budesonide/Formoterol Fumarate 2 puff 05/23/25 08:30 05/24/25 19:48 Budesonide/Formoterol 160/4.5 6 Gm 60 Puff Inh IH 2 puff BID MARIA VICTORIA Administration Calcium Citrate 950 mg 05/23/25 08:30 05/24/25 08:33 Calcium Citrate 950 Mg Tab PO 950 mg DAILY MARIA VICTORIA Administration Cholecalciferol 1,000 units 05/23/25 20:00 05/24/25 20:01 Cholecalciferol (Vitamin D3) 1,000 Unit Tab PO 1,000 units HS MARIA VICTORIA Administration Clonazepam 0.25 mg 05/24/25 20:00 05/24/25 20:31 Clonazepam 0.5 Mg Tab PO 0.25 mg QPM MARIA VICTORIA Administration Cyanocobalamin 1,000 mcg 05/23/25 20:00 05/24/25 20:02 Cyanocobalamin 500 Mcg Tab PO 1,000 mcg HS MARIA VICTORIA Administration Divalproex Sodium 250 mg 05/23/25 08:30 05/24/25 20:03 Divalproex 250 Mg Tabec PO 250 mg BID MARIA VICTORIA Administration Docusate Sodium 100 mg 05/23/25 08:30 05/24/25 20:03 Docusate Sodium 100 Mg Cap PO 100 mg BID MARIA VICTORIA Administration Doxycycline Hyclate 100 mg 05/24/25 20:00 05/24/25 20:10 Doxycycline Hyclate 100 Mg Cap PO 100 mg BID@1100,2000 MARIA VICTORIA Administration Enoxaparin Sodium 40 mg 05/23/25 08:30 05/24/25 08:30 Enoxaparin 40 Mg/0.4 Ml Syr SC 40 mg DAILY MARIA VICTORIA Administration Ferrous Sulfate 325 mg 05/24/25 08:30 05/24/25 08:33 Ferrous Sulfate 325 Mg Tab PO 325 mg MoWeFr@0830 MARIA VICTORIA Administration Fluoxetine HCl 80 mg 05/24/25 08:30 05/24/25 08:34 Fluoxetine 20 Mg Cap PO 80 mg DAILY MARIA VICTORIA Administration Ampicillin Sodium/Sulbactam 100 mls @ 200 mls/hr 05/23/25 08:00 05/24/25 20:30 Sodium 3 gm/ Sodium Chloride IVPB Infused Q6H MARIA VICTORIA Infusion Dextrose/Lactated Ringer's 1,000 mls @ 50 mls/hr 05/24/25 17:30 05/24/25 17:52 Dextrose 5%-Lr IV 50 mls/hr INFUSION MARIA VICTORIA Administration Isosorbide Mononitrate 30 mg 05/23/25 08:30 05/23/25 08:55 Isosorbide Mononitrate 30 Mg Tabcr PO 30 mg On Hold: 05/24/25 08:18 DAILY MARIA VICTORIA Administration Levothyroxine Sodium 50 mcg 05/23/25 06:00 05/24/25 05:28 Levothyroxine 50 Mcg Tab PO 50 mcg 0600 MARIA VICTORIA Administration Lidocaine 1 patch 05/23/25 08:30 05/24/25 08:31 Lidocaine 5% Patch TP 1 patch DAILY MARIA VICTORIA Administration Magnesium Oxide 400 mg 05/23/25 20:00 05/24/25 20:03 Magnesium Oxide 400 Mg Tab PO 400 mg QPM MARIA VICTORIA Administration Miscellaneous 1 each 05/23/25 20:30 05/24/25 21:47 Patch Removal TP 1 each 2030 MARIA VICTORIA Administration Omeprazole 40 mg 05/24/25 07:30 05/24/25 08:32 Omeprazole 20 Mg Capcr PO 40 mg DAILY@0730 MARIA VICTORIA Administration Polyethylene Glycol 17 gm 05/23/25 08:30 05/24/25 08:30 Polyethylene Glycol 3350 17 Gm Packet PO 17 gm DAILY MARIA VICTORIA Administration Prazosin HCl 5 mg 05/23/25 20:00 05/23/25 20:11 Prazosin 5 Mg Cap PO 5 mg On Hold: 05/24/25 08:18 HS MARIA VICTORIA Administration Sennosides 1 tab 05/23/25 08:30 05/24/25 08:32 Senna Tab PO 1 tab DAILY MARIA VICTORIA Administration Sodium Chloride 0 ml 05/23/25 00:28 05/24/25 05:28 Normal Saline Flush 10 Ml Syr IVP 60 ml PRN PRN Administration Sodium Chloride 0 ml 05/23/25 08:30 05/24/25 20:04 Normal Saline Flush 10 Ml Syr IVP 20 ml BID MARIA VICTORIA Administration Tizanidine HCl 4 mg 05/23/25 20:00 05/24/25 20:05 Tizanidine 4 Mg Tablet PO 4 mg HS MARIA VICTORIA Administration Trazodone HCl 50 mg 05/23/25 20:00 05/24/25 20:05 Trazodone 50 Mg Tab PO 50 mg HS MARIA VICTORIA Administration Umeclidinium [place] 1 cap 05/23/25 08:30 05/24/25 08:35 Umeclidinium 7 Cap Inhaler IH 1 puff DAILY MARIA VICTORIA Administration IV IV Catheter Type [Right IJ Triple Lumen External Jugular] IV Catheter Type [Right Saline Lock Antecubital] IV Catheter Type [Left Saline Lock Antecubital] IV Catheter Gauge [Right 20 Antecubital] IV Catheter Gauge [Left 18 Antecubital] Diagnostics 05/24/25 05/24/25 05/24/25 Range/Units Unknown 10:10 05:35 WBC 8.39 (4.4-10.8) 10^3/uL RBC 3.23 L (3.93-5.22) 10^6/uL Hgb 10.4 L (11.2-15.7) g/dL Hct 32.2 L (36.0-46.0) % MCV 100 H (80-95) fL MCH 32.2 (27.0-33.0) pg MCHC 32.3 (32.0-36.0) % RDW 14.5 (11.7-14.6) % Plt Count 94 L (130-400) 10^3/uL MPV 9.6 (8.0-11.0) fL INR Pending Sodium 141 (136-145) mmol/L Potassium 3.0 L (3.5-5.1) mmol/L Chloride 104 (98-107) mmol/L Carbon Dioxide 29.5 (21.0-32.0) mmol/L Anion Gap 7.5 (3-11) mmol/L BUN 22 H (7-18) mg/dL Creatinine 0.5 L (0.55-1.02) mg/dL Est GFR (CKD-EPI 2020) 104.67 (mL/min/1.73m2) Glucose 92 (74-106) mg/dL Calcium 8.4 L (8.5-10.1) mg/dL Total Bilirubin 0.4 (0.2-1.0) mg/dL AST 394 H (15-37) U/L ALT 355 H (14-59) U/L Alkaline Phosphatase 115 (46-116) U/L Total Protein 4.7 L (6.4-8.2) g/dL Albumin 2.0 L (3.4-5.0) g/dL B. divergens/MO-1 PCR Pending Babesia duncani (PCR) Pending Babesia microti DNA PCR Pending Lyme Disease Antibody Pending E.chaffeensis DNA (PCR) Pending E.ewingii/canis DNA PCR Pending E.muris eauclairensis (PCR) Pending Hepatitis A IgM Ab Pending Hep Bs Antigen Pending Hep B Core Total Ab Pending Hepatitis C Antibody Pending MRSA (TEM-PCR) Negative (Negative) A. phagocytophilum (PCR) Pending Blood B. miyamotoi (PCR) Pending 05/23/25 03:50 Urine Culture - Preliminary Urine - Cath Jaquez Indwelling 05/23/25 01:21 Blood Culture - Preliminary Blood NO GROWTH 24 HOURS 05/23/25 00:37 Blood Culture - Preliminary Blood NO GROWTH 24 HOURS [id number] Documentation Fingerstick Glucose Start: 05/23/25 00:36 Freq: Status: Complete Protocol: Activity Type Activity Date Activity User E-sign Co-sign Detail Recorded Client Recorded Date Recorded By Document 05/23/25 00:35 BKG DAEMON [id number] 05/23/25 00:36 BKG DAEMON(2) Intake and Output - 24 Hour Total 05/23/25 00:23 thru 05/24/25 22:40 Intake Total 6604.490 Output Total 1625 Balance 4979.490 Weight 74 kg Intake: IV 5102.490 Oral 1502 Output: Urine 1625 Other: Urine Color Light Karen Urine Appearance Clear Comment jaquez catheter in place Falls Risk Assessment History of Falls Previous History 05/23/25 04:27 Contributing Factors Confusion,Unstable, 05/23/25 04:27 Impairments,Incontinence Ambulatory Aids Uses ambulatory device 05/23/25 04:27 Tubes/Lines None 05/23/25 04:27 Gait Evaluation W/no contributing factors 05/23/25 04:27 Cognition Cognitive impairment 05/23/25 04:27 Fall Total Score 67 05/23/25 04:27 Level of Risk High Risk 05/23/25 04:27 Problems (Last Updated 05/23/25 @ 03:44 by Freddy Butts) Transaminitis (Acute) Hypokalemia (Acute) Septic shock (Acute) CVA (cerebral vascular accident) (Chronic) Septic shock (Acute) HTN (hypertension) with goal to be determined (Chronic) Aspiration pneumonia (Acute) Anxiety and depression (Chronic) v v v v v v v v v Sending and/or Receiving Nurses: Please use comment section below to note any information pertinent to the patient hand-off not included above. Information / Comments:Received pt. in the unit per icu bed accompanied by the agricultural research technician and this grant writer.transferred pt. bed to bed with the help of ADRIAN.Pt, has an IV on right AC 20 gauge and Left AC 18 gauge.also with right IJ 3 lumens with running IVF of LR running @ 50ml/hr.C/o of right arm pit pain and given prn tylenol.Situted pt. into comfort.needs attended.With continous 2lpm via NC. Report received from:DORA, SYSTEM SOFTWARE DEVELOPER
[2025-05-25] VITALS (7 sets, daily range): BP systolic 126–143; BP diastolic 66–78; PULSE 48–78; RESP 16–18; TEMP 36–36.8; O2SAT 96–99
[2025-05-25] MEDS: AMPICILLIN/SULBACTAM 3 GM in Normal Saline 100 ML IVPB ×2 (01:50→08:31)
[2025-05-25] MEDS: Levothyroxine 50 MCG TAB PO (05:40)
[2025-05-25 06:37] LABS: HCT 32.6 % (36.0-46.0); HGB 10.4 g/dL (11.2-15.7); MCH 31.4 pg (27.0-33.0); MCHC 31.9 % (32.0-36.0); MCV 99 fL (80-95); MPV 10.2 fL (8.0-11.0); Platelet Count 104 10^3/uL (130-400); RBC 3.31 10^6/uL (3.93-5.22); RDW 14.6 % (11.7-14.6); RDW-SD 53.2 fL; WBC 5.74 10^3/uL (4.4-10.8)
[2025-05-25 07:08] LABS: ALT 531 U/L (14-59); AST 449 U/L (15-37); Albumin 1.9 g/dL (3.4-5.0); Alkaline Phosphatase 228 U/L (46-116); BUN 16 mg/dL (7-18); Bilirubin, Total 0.5 mg/dL (0.2-1.0); CO2 30.9 mmol/L (21.0-32.0); Calcium 8.6 mg/dL (8.5-10.1); Glucose 85 mg/dL (74-106); Total Protein 4.6 g/dL (6.4-8.2)
[2025-05-25 07:15] LABS: Anion Gap 3.1 mmol/L (3-11); Chloride 105 mmol/L (98-107); Sodium 139 mmol/L (136-145)
[2025-05-25 07:23] LABS: Potassium 4.5 mmol/L (3.5-5.1)
[2025-05-25 07:36] LABS: INR 1.0 (0.9-1.1); Prothrombin Time 9.8 sec (9.1-11.1)
[2025-05-25] MEDS: Umeclidinium 7 CAP INHALER 1 CAP IH (08:24)
[2025-05-25] MEDS: Budesonide/Formoterol 160/4.5 6 GM 60 PUFF INH IH ×2 (08:24→19:50)
[2025-05-25] MEDS: Lidocaine 5% Patch 1 PATCH TP (08:30)
[2025-05-25] MEDS: Omeprazole 20 MG CAPCR 40 MG PO (08:30)
[2025-05-25] MEDS: Enoxaparin 40 MG/0.4 ML SYR SC (08:30)
[2025-05-25] MEDS: Calcium Citrate 950 MG TAB PO (08:30)
[2025-05-25] MEDS: Senna TAB 1 TAB PO (08:30)
[2025-05-25] MEDS: Aspirin E.C. 81 MG TABEC PO (08:30)
[2025-05-25] MEDS: Docusate Sodium 100 MG CAP PO ×2 (08:30→20:35)
[2025-05-25] MEDS: Divalproex 250 MG TABEC PO ×2 (08:30→20:34)
[2025-05-25] MEDS: Lactobacillus Acidophilus CAP 1 CAP PO (08:30)
[2025-05-25] MEDS: FLUoxetine 20 MG CAP 80 MG PO (08:31)
[2025-05-25] MEDS: Normal Saline Flush 10 ML SYR IVP ×2 (08:32→20:35)
--- NOTE | 2025-05-25 09:12 | PT.INTREAT ---
Date of service: 05/25/25 Time of Service: 10:40 PT Notes Visit Reasons: Septic shock, Aspiration Pneumonia Inpatient Physical Therapy Treatment Note [facility] Date: [05/25/2025] PRECAUTIONS:[]fall risk SUBJECTIVE: []I feel like I am getting stronger and making progress. Hx of present admission:Patient Profile/Admitting Diagnosis: septic shock, aspiration pneumonia PMHX: CVA in 2004 Social History/Home Situation: Lives in a [facility]mediate where she gets physical therapy each day Current Functional Limitations: ambulates to the bathroom and back independently with a RW but if she walks farther than that she has to call for assistance, does not need to manage any stairs OBJECTIVE: [] Therapeutic Activities - (26094 x[3]): instruction in dynamic activities with one on one patient contact by the provider to improve functional performance as follows: Provided skilled cues and instruction on performance and technique throughout. [] Transfers: supine to sit with HOB elevated SBA , sit to supine min A of 1 to aide right LE sit to stand from bed to RW SBA, v/c to pick head up stand to sit from RW to bed SBA with v/c for hand placement sit to stand and stand to sit to chair SBA with v/c for hand placement Ambulates: with FWRW 60' with CTG with v/c for pacing and to look up, able to take 3-4 steps with CTG without AD while working on balance Balance: Standing at RW holding on for 15' Standing at RW letting go 2x10 sec with reaching with left UE Standing and using RW for support marching in place x 20 sec PAIN: []right arm axilla area does not grade pain. VITALS: monitored by nursing staff ASSESSMENT: [] Pt is currently A+Ox4 and functioning close to her baseline. She is requiring min assist to get into bed due to RLE weaknesses but it is likely that this was present before admission due to a previous stroke. She was able to ambulate about 60 ft w/CGA and a RW but does demonstrate a right foot drop that increases her risk for falling. She is cleared to return back to her living facility when medically cleared but will continue to benefit from PT services while in the hospital to optimize her level of function and decrease her fall risk. PLAN: []1-2x/day, 7 days/week x 1 week. Plan of care has been reviewed with the FOOD SAFETY TECHNICIAN providing the service under Physical Therapy direction. Initiate Physical Therapy intervention for strengthening, bed mobility, transfers, gait, stairs, balance training, use of assistive device. DISCHARGE RECOMMENDATIONS: Discharge back to SNF with continued PT services TREATMENT CODE/TIME:[id number] 10:40-11:20
[2025-05-25] MEDS: cefTRIAXone 2 GM/50 ML BAG IVPB (12:06)
[2025-05-25] MEDS: Doxycycline Hyclate 100 MG CAP PO ×2 (12:06→20:35)
--- NOTE | 2025-05-25 16:20 | W.PM.PROGNOT ---
Date of Service Date of service: 05/25/25 Time of Service: 16:20 Assessment and Plan Assessment and plan (1) Septic shock: Start date: 05/23/25 Status: Acute Assessment and plan: Initially septic and hypotensive after fluids, on norepinephrine 05/22-05/23 at low doses. Source appears to be pneumonia. Shock has resolved. WBC has normalized. (2) Aspiration pneumonia: Start date: 05/23/25 Status: Acute Assessment and plan: She is on Unasyn and doxycycline for possible aspiration pneumonia. Vancomycin stopped 05/24 with MRSA swab negative. Concern for DILI, stopping Unasyn, to ceftriaxone and doxy UPHOLSTERER APPRENTICE eval reassuring. (3) Transaminitis: Status: Acute Assessment and plan: New this admission. A/w low platelets, tick and acute hepatitis panel pending. Septic shock could have been trigger, but we didn't see renal dysfunction. Antibiotics could cause KINSEY but none are common causes. She doesn't have symptoms of DRESS Exam benign. Admission CT w/o contrast did not show liver pathology. U/s also normal 05/24. Bili/INR okay. (4) HTN (hypertension) with goal to be determined: Status: Chronic Assessment and plan: Only on prazosin and imdur as outpatient, imdur was meant to be stopped, also stop prazosin as she doesn't think she needs it. . (5) CVA (cerebral vascular accident): Status: Chronic Assessment and plan: Patient history is confusing, MRI after the event in December was non-focal without acute infarct. Current exam is not focal. Continue aspirin and statin. (6) CAD (coronary artery disease): Assessment and plan: No chest pain. Troponins were negative on admission. Continue ASA/statin. Recent echocardiogram 04/18 reassuring. Subjective Subjective Patient reports: no new complaints, feels better, tolerating a regular diet and voiding w/o difficulty; denies diarrhea, nausea, vomiting or fever Interval history since last seen: Feels better, breathing improved. would like to go back to rehab. No abdominal pain Exam Narrative Exam Narrative: GEN: More alert, oriented, NAD Lungs: minimal rales right base, otherwise CTAB. normal effort on room air. CV: isabelle, regular, no M/G/R ABD: +BS, soft, no tenderness. no organomegaly/masses palpable Ext: no c/c/edema, warm. Objective Last Vital Signs Temp 36.8 C 05/25/25 15:10 Pulse 78 05/25/25 15:10 Resp 16 05/25/25 15:10 BP 138/76 05/25/25 15:10 Pulse Ox 98 05/25/25 15:10 Laboratory Results - last 24 hr 05/24/25 05/25/25 05/25/25 Unknown 05:40 07:01 WBC 5.74 RBC 3.31 L Hgb 10.4 L Hct 32.6 L MCV 99 H MCH 31.4 MCHC 31.9 L RDW 14.6 Plt Count 104 L MPV 10.2 PT 9.8 INR Cancelled 1.0 Sodium 139 Potassium 4.5 D Chloride 105 Carbon Dioxide 30.9 Anion Gap 3.1 BUN 16 Creatinine 0.4 L Est GFR (CKD-EPI 2020) 110.45 Glucose 85 Calcium 8.6 Total Bilirubin 0.5 AST 449 H ALT 531 H Alkaline Phosphatase 228 H Total Protein 4.6 L Albumin 1.9 L Time Spent with Patient Time Spent with Patient: 35-49 minutes Time was spent: preparing to see the patient(eg.review tests), obtaining and/or reviewing separately otained hiistory, ordering medications,tests, procedures, referring, communicating with other health reproductive healthcare assistant, indepentently interpreting results, counseling the patient and care coordination
[2025-05-25] MEDS: clonazePAM 0.5 MG TAB 0.25 MG PO (20:34)
[2025-05-25] MEDS: Cyanocobalamin 500 MCG TAB 1000 MCG PO (20:34)
[2025-05-25] MEDS: Magnesium Oxide 400 MG TAB PO (20:34)
[2025-05-25] MEDS: Cholecalciferol (Vitamin D3) 1,000 UNIT TAB 1000 UNITS PO (20:34)
[2025-05-25] MEDS: traZODone 50 MG TAB PO (20:35)
[2025-05-25] MEDS: tiZANidine 4 MG TABLET PO (20:35)
[2025-05-25] MEDS: Atorvastatin 40 MG TAB PO (20:35)
[2025-05-25] MEDS: Patch Removal 1 EACH TP (20:39)
[2025-05-26 02:48] VITALS: BP 131/80; PULSE 57; RESP 16; TEMP 36.4; O2SAT 97
[2025-05-26] MEDS: Acetaminophen 325 MG TAB 650 MG PO (05:23)
[2025-05-26] MEDS: Levothyroxine 50 MCG TAB PO (05:23)
[2025-05-26 06:35] LABS: HCT 33.3 % (36.0-46.0); HGB 10.8 g/dL (11.2-15.7); MCH 31.3 pg (27.0-33.0); MCHC 32.4 % (32.0-36.0); MCV 97 fL (80-95); MPV 9.9 fL (8.0-11.0); Platelet Count 110 10^3/uL (130-400); RBC 3.45 10^6/uL (3.93-5.22); RDW 14.2 % (11.7-14.6); RDW-SD 50.9 fL; WBC 6.70 10^3/uL (4.4-10.8)
[2025-05-26 06:52] LABS: ALT 373 U/L (14-59); AST 146 U/L (15-37); Albumin 2.0 g/dL (3.4-5.0); Alkaline Phosphatase 245 U/L (46-116); Anion Gap 4.7 mmol/L (3-11); BUN 7 mg/dL (7-18); Bilirubin, Direct 0.2 mg/dL (0.0-0.2); Bilirubin, Total 0.4 mg/dL (0.2-1.0); CO2 33.3 mmol/L (21.0-32.0); Calcium 8.7 mg/dL (8.5-10.1); Chloride 101 mmol/L (98-107); Glucose 71 mg/dL (74-106); Potassium 4.0 mmol/L (3.5-5.1); Sodium 139 mmol/L (136-145); Total Protein 4.8 g/dL (6.4-8.2)
[2025-05-26 07:14] VITALS: BP 144/82; PULSE 51; RESP 18; TEMP 36.8; O2SAT 92
[2025-05-26] MEDS: Umeclidinium 7 CAP INHALER 1 CAP IH (07:39)
[2025-05-26] MEDS: Budesonide/Formoterol 160/4.5 6 GM 60 PUFF INH IH (07:39)
[2025-05-26 07:43] VITALS: PULSE 49; O2SAT 95
--- NOTE | 2025-05-26 07:58 | W.PM.DS.N ---
Date of service: 05/26/25 Time of Service: 12:24 DS: Diagnosis Discharge Diagnosis (1) Septic shock: Status: Acute (2) Aspiration pneumonia: Status: Acute (3) Transaminitis: Status: Acute Asessment and Plan: concern for Drug induced liver injury, Unasyn? (4) HTN (hypertension) with goal to be determined: Status: Chronic (5) CVA (cerebral vascular accident): Status: Chronic (6) CAD (coronary artery disease): (7) Bipolar 1 disorder: Status: Acute Discharge Plan Disposition [facility] Condition: Improving Discharge Details Reason For Visit: Septic shock, Aspiration Pneumonia Admit Date/Time: 05/23/25 04:01 Admit Provider: Freddy Butts Attending Provider: Freddy Butts [facility] Hospital Course: 64-year-old female patient with history of CVA/TIA, BPAD, esophogeal strictures/dilations, and HTN who resides at the local [place] [facility] presented with fever, weakness, and altered mental status. She was found to be in septic shock and treated with fluids and antibiotics including ampicillin/sulbactam and vancomycin, and doxycycline to cover presumed aspiration pneumonia. CT C/A/P on admission showed infiltrates in posterior basal segments of both lower lobes. She was on noriepinephrine drip in the ICU overnight the first night, but was weaned by the next morning. Her hypoxia improved and she was weaned to room air by day #2 and her WBC normalized. MRSA swabs were negative and vancomycin stopped. She had a speech pathology evaluation who found no issues with her swallow, and recommended follow up with GI for her esophageal issues. She continued to have soft blood pressures after she clinically improved. Her isosorbide, which cardiology had recommended stopping earlier in April, was stopped. Her prazosin, which she was taking for nightmares, was also stopped, as she felt she didn't need this medication since being on divalproex. Her mental status remained slower in the mornings, and her clonezepam was decreased to 0.25mg with improvement. She was still able to sleep and did not complain of more anxiety. She was feeling better but 05/25 but her AST/ALT continued to trend up despite clinical improvement. They were 125/79 on admission and up to 449/531 by 05/25. Bili was normal, though alkaline phosphatase was mildly elevated. Her platelets were slightly low. Tick/lyme and acute hepatitis panels were sent and medications reviewed 05/24, vancomycin stopped. Tramadol was not given as she was not asking for it. On 05/25, ampicillin/sulbactam was replace with ceftriaxone over concern for drug associated liver injury. She had a CT on admission that showed normal liver and spleen. Ultrasound 05/24 of the abdomen was also benign. By 05/26 her LFTs were improving. Acetaminophen should be used as needed and limited to 2g/day until her liver function stabilizes. Note of CVA history confusing in records. She had a CTA head/neck without acute findings on admission, and did not have clear focal neurologic findings on this admission. Her MRI from December 2024 actually did not show a focal stroke. Tick/lyme and hepatitis panel pending at time of discharge. Her rhythm was mostly sinus bradycardia down to 40s at night. She did not have symptoms. This should be followed as an outpatient. Her blood pressure was slightly high after the prazosin and isosorbide were stopped. A medication such as CHANDRAKANT/ARB should be considered as an outpatient if BP stays high, given contraindication to beta blockers with low pulse and her CAD history. She was discharged with 1 more day of cefdinir and 3 more doses of doxycyline to complete a 5 day course. Repeat CMP/CBC should be done in 1 week. Home Meds and New Rx's Prescriptions: New acetaminophen 325 mg Tablet 650 mg PO Q4H PRN PRNQty: 0 0RF doxycycline hyclate 100 mg Capsule 100 mg PO BID@1200,2000 2 Days Qty: 3 0RF cefdinir 300 mg capsule 300 mg PO BID Qty: 2 0RF Rx Instructions: on 05/27, then stop Continued fluoxetine 20 mg capsule 20 mg PO DAILY Rx Instructions: total dose 60 mg daily Incruse Ellipta 62.5 mcg/actuation blister with device 1 inh inhalation DAILY (DME) Affirm Underwear Misc See Rx Instructions .Route Rx Instructions: As directed aspirin 81 mg tablet,delayed release (DR/EC) 81 mg PO DAILY fluticasone furoate-vilanterol [Breo Ellipta] 200-25 mcg/dose blister with device 1 inh inhalation DAILY docusate sodium 100 mg capsule 100 mg PO BID Patient Comments: as needed divalproex 250 mg tablet,delayed release (DR/EC) 250 mg PO BID Patient Comments: 02/18/25 per H&R notes. RH fluoxetine 60 mg tablet 60 mg PO DAILY Patient Comments: 02/18/25 per H&R notes for total of 80 mg daily. RH lidocaine 5 % adhesive patch,medicated 1 patch topical DAILY atorvastatin 40 mg Tablet 40 mg PO QPM ferrous sulfate [FeroSul] 325 mg (65 mg iron) tablet 325 mg PO DIRECTED Rx Instructions: 3 times weekly polyethylene glycol 3350 [Miralax] 17 gram Powder In Packet 17 g PO DAILY cyanocobalamin (vitamin B-12) [Vitamin B-12] 1,000 mcg Tablet 1,000 mcg PO HS levothyroxine 50 mcg Tablet 50 mcg PO DAILY nitroglycerin 0.4 mg Tablet, Sublingual 0.4 mg SUBLINGUAL Q5M PRN Rx Instructions: do not exceed 3 doses per episode magnesium oxide 400 mg magnesium Tablet 400 mg PO QPM albuterol 90 mcg/actuation Aerosol 90 mcg INHALATION Q6H PRN PRN Culturelle 10 billion cell Capsule 1 cap PO DAILY cholecalciferol (vitamin D3) 25 mcg (1,000 unit) Tablet 75 mcg PO HS omeprazole 20 mg capsule,delayed release(DR/EC) 40 mg PO DAILY Patient Comments: 20MG ONE CAP tizanidine 4 mg tablet 4 mg PO QHS trazodone 50 mg tablet 50 mg PO QHS sennosides [senna] 8.6 mg tablet 17.2 mg PO DAILY calcium citrate 200 mg (950 mg) Tablet 250 mg PO DAILY bisacodyl 10 mg suppository 10 mg PA DAILY PRN ondansetron 4 mg tablet,disintegrating 4 mg PO TID-QID PRN tizanidine 2 mg tablet 2 mg PO Q8H PRN PRN Changed clonazepam [Klonopin] 0.5 mg Tablet 0.25 mg PO QPM Qty: 0 0RF Discontinued prazosin 5 mg capsule 5 mg PO QHS tramadol 50 mg tablet 50 mg PO Q4H PRN isosorbide mononitrate 30 mg tablet extended release 24 hr 30 mg PO DAILY acetaminophen 500 mg capsule 1,000 mg PO TID Discharge Instructions Activity:: Activity as Tolerated Equipment/Supplies:: No Equipment Needed Diet:: As Tolerated Discharge Orders Discharge Orders: Discharge Order (Routine); Ordered 05/26/25 Ordered By: Jose A Jack DS: Summary Time Spent with Patient providing and/or coordinating discharge services: Greater than 30 minutes Status at Discharge Functional status at discharge: uses cane/walker Overall status at discharge: patient is back to baseline Mental Status: mental status grossly normal Speech and Movement: speech and movement normal Mood: congruent mood Affect: normal affect Quality:SDOH Health Related Social Needs: Health related social needs details Pt lives at [facility]. Exam Narrative Exam Narrative: GEN: Alert, oriented x 3, NAD Lungs: minimal rales right base, otherwise CTAB. normal effort on room air. CV: isabelle, regular, no M/G/R ABD: +BS, soft, no tenderness. no organomegaly/masses palpable Ext: no c/c/edema, warm. Psych Mental Status: mental status grossly normal Speech and Movement: speech and movement normal Mood: congruent mood Affect: normal affect DS: Data Vitals/I&O Vitals and I&O: Vital Signs Temperature 36.8 C 05/26/25 07:14 Temperature Source Temporal Artery Scan 05/26/25 07:14 Pulse 49 L 05/26/25 07:43 Pulse 54 L 05/24/25 22:00 Respiratory Rate 18 05/26/25 07:14 Respiratory Effort Normal 05/23/25 05:50 Respiratory Depth Normal 05/23/25 05:50 Respiratory Pattern Normal 05/23/25 05:50 Blood Pressure 144/82 H 05/26/25 07:14 Blood Pressure Mean 102 05/26/25 07:14 Blood Pressure Position Sitting 05/23/25 00:25 Pulse Oximetry 95 05/26/25 07:43 Oxygen Delivery Method Room Air 05/26/25 07:43 Oxygen Flow Rate 0 05/26/25 07:43 Pain Level 4 05/26/25 05:23 Comment Pt refused vitals, pt sleeping. Pt's vitals are Q4 while awake. 05/25/25 03:44 Arterial Systolic 79 05/23/25 04:30 Arterial Diastolic 62 05/23/25 04:30 Arterial Mean 85 05/23/25 05:10 Intake & Output 05/25/25 05/25/25 05/26/25 11:59 23:59 10:59 Intake Total / 1969 Output Total 1000 / 2600 1600 / 2600 1600 / 1600 Balance -800 / -630 170 / -630 -1600 / -1600 Weight 71.8 kg Intake: IV 200 / 1290 1090 / 1290 Oral 680 / 680 Output: Urine 1000 / 2600 1600 / 2600 1600 / 1600 Other: Urine Color Light Karen Light Karen Yellow Urine Appearance Clear Clear Clear Stool Size Copious Moderate Stool Characteristics Formed Formed Brown Brown Data Completed and Pending Pending Labs at Discharge: 05/23/25 05/23/25 05/23/25 00:37 02:05 02:15 WBC 17.33 H RBC 3.98 Hgb 12.6 Hct 38.9 MCV 98 H MCH 31.7 MCHC 32.4 RDW 14.2 Plt Count 137 MPV 9.3 Immature Gran % 1.0 Neutrophils % 92.3 Lymphocytes % 0.8 Monocytes % 5.3 Eosinophils % 0.1 Basophils % 0.5 Nucleated RBC % 0.0 Absolute Neutrophils 16.00 H Absolute Lymphocytes 0.14 L Absolute Monocytes 0.92 H Absolute Eosinophils 0.02 Absolute Basophils 0.09 PT 10.6 INR 1.1 APTT 26.0 VBG pH 7.42 H VBG pCO2 48 VBG pO2 35 VBG HCO3 31 H VBG Total CO2 28 VBG O2 Saturation 67 VBG Base Excess 7 H VBG Lactate 2.2 H* Sodium 138 Potassium 3.9 Chloride 99 Carbon Dioxide 32.8 H Anion Gap 6.2 BUN 39 H Creatinine 0.9 Est GFR (CKD-EPI 2020) 71.39 Glucose 173 H Calcium 9.3 Total Bilirubin 0.4 Conjugated Bilirubin AST 36 ALT 44 Alkaline Phosphatase 76 Troponin I 11 10 Total Protein 6.3 L Albumin 3.1 L Procalcitonin 0.68 TSH 1.54 Urine Color Urine Clarity Urine pH Ur Specific [place] Urine Protein Urine Ketones Urine Blood Urine Nitrite Urine Bilirubin Urine Urobilinogen Ur Leukocyte Esterase Urine RBC Urine WBC Ur Epithelial Cells Urine Crystals Urine Bacteria Urine Casts Urine Mucus Ur Culture Indicated? Urine Glucose Random Vancomycin B. divergens/MO-1 PCR Babesia duncani (PCR) Babesia microti DNA PCR Lyme Disease Antibody COVID-19 Source Nasopharynx SARS-CoV-2 (PCR) Negative E.chaffeensis DNA (PCR) E.ewingii/canis DNA PCR E.muris eauclairensis (PCR) Hepatitis A IgM Ab Hep Bs Antigen Hep B Core Total Ab Hepatitis C Antibody Influenza Type A (PCR) Negative Influenza Type B (PCR) Negative RSV (PCR) Negative MRSA (TEM-PCR) A. phagocytophilum (PCR) Blood B. miyamotoi (PCR) 05/23/25 05/23/25 05/23/25 03:50 04:45 06:10 WBC 15.47 H RBC 3.52 L Hgb 11.3 Hct 34.8 L MCV 99 H MCH 32.1 MCHC 32.5 RDW 14.6 Plt Count 115 L MPV 9.6 Immature Gran % Neutrophils % Lymphocytes % Monocytes % Eosinophils % Basophils % Nucleated RBC % Absolute Neutrophils Absolute Lymphocytes Absolute Monocytes Absolute Eosinophils Absolute Basophils PT INR APTT VBG pH 7.41 VBG pCO2 43 VBG pO2 78 VBG HCO3 27 VBG Total CO2 25 VBG O2 Saturation 96 VBG Base Excess 3 VBG Lactate 0.9 Sodium 142 Potassium 3.5 Chloride 106 Carbon Dioxide 27.2 Anion Gap 8.8 BUN 32 H Creatinine 0.7 Est GFR (CKD-EPI 2020) 96.52 Glucose 117 H Calcium 8.4 L Total Bilirubin 0.5 Conjugated Bilirubin AST 125 H ALT 79 H Alkaline Phosphatase 70 Troponin I 9 Total Protein 5.2 L Albumin 2.4 L Procalcitonin TSH Urine Color Yellow Urine Clarity Sl Cloudy Urine pH 5.5 Ur Specific [place] 1.010 Urine Protein Trace Urine Ketones 15 H Urine Blood Trace-intact H Urine Nitrite Negative Urine Bilirubin Negative Urine Urobilinogen 0.2 Ur Leukocyte Esterase Negative Urine RBC 3-5 H Urine WBC 3-5 Ur Epithelial Cells Few Urine Crystals Negative Urine Bacteria Few Urine Casts Negative Urine Mucus Trace Ur Culture Indicated? C&S Done As Ordered Urine Glucose Negative Random Vancomycin B. divergens/MO-1 PCR Babesia duncani (PCR) Babesia microti DNA PCR Lyme Disease Antibody COVID-19 Source SARS-CoV-2 (PCR) E.chaffeensis DNA (PCR) E.ewingii/canis DNA PCR E.muris eauclairensis (PCR) Hepatitis A IgM Ab Hep Bs Antigen Hep B Core Total Ab Hepatitis C Antibody Influenza Type A (PCR) Influenza Type B (PCR) RSV (PCR) MRSA (TEM-PCR) Negative A. phagocytophilum (PCR) Blood B. miyamotoi (PCR) 05/23/25 05/24/25 05/24/25 13:10 05:35 10:10 WBC 8.39 RBC 3.23 L Hgb 10.4 L Hct 32.2 L MCV 100 H MCH 32.2 MCHC 32.3 RDW 14.5 Plt Count 94 L MPV 9.6 Immature Gran % Neutrophils % Lymphocytes % Monocytes % Eosinophils % Basophils % Nucleated RBC % Absolute Neutrophils Absolute Lymphocytes Absolute Monocytes Absolute Eosinophils Absolute Basophils PT INR APTT VBG pH VBG pCO2 VBG pO2 VBG HCO3 VBG Total CO2 VBG O2 Saturation VBG Base Excess VBG Lactate Sodium 141 Potassium 3.0 L Chloride 104 Carbon Dioxide 29.5 Anion Gap 7.5 BUN 22 H Creatinine 0.5 L Est GFR (CKD-EPI 2020) 104.67 Glucose 92 Calcium 8.4 L Total Bilirubin 0.4 Conjugated Bilirubin AST 394 H ALT 355 H Alkaline Phosphatase 115 Troponin I Total Protein 4.7 L Albumin 2.0 L Procalcitonin TSH Urine Color Urine Clarity Urine pH Ur Specific [place] Urine Protein Urine Ketones Urine Blood Urine Nitrite Urine Bilirubin Urine Urobilinogen Ur Leukocyte Esterase Urine RBC Urine WBC Ur Epithelial Cells Urine Crystals Urine Bacteria Urine Casts Urine Mucus Ur Culture Indicated? Urine Glucose Random Vancomycin 8.5 B. divergens/MO-1 PCR Pending Babesia duncani (PCR) Pending Babesia microti DNA PCR Pending Lyme Disease Antibody Pending COVID-19 Source SARS-CoV-2 (PCR) E.chaffeensis DNA (PCR) Pending E.ewingii/canis DNA PCR Pending E.muris eauclairensis (PCR) Pending Hepatitis A IgM Ab Pending Hep Bs Antigen Pending Hep B Core Total Ab Pending Hepatitis C Antibody Pending Influenza Type A (PCR) Influenza Type B (PCR) RSV (PCR) MRSA (TEM-PCR) Negative A. phagocytophilum (PCR) Pending Blood B. miyamotoi (PCR) Pending 05/24/25 05/25/25 05/25/25 Unknown 05:40 07:01 WBC 5.74 RBC 3.31 L Hgb 10.4 L Hct 32.6 L MCV 99 H MCH 31.4 MCHC 31.9 L RDW 14.6 Plt Count 104 L MPV 10.2 Immature Gran % Neutrophils % Lymphocytes % Monocytes % Eosinophils % Basophils % Nucleated RBC % Absolute Neutrophils Absolute Lymphocytes Absolute Monocytes Absolute Eosinophils Absolute Basophils PT 9.8 INR Cancelled 1.0 APTT VBG pH VBG pCO2 VBG pO2 VBG HCO3 VBG Total CO2 VBG O2 Saturation VBG Base Excess VBG Lactate Sodium 139 Potassium 4.5 D Chloride 105 Carbon Dioxide 30.9 Anion Gap 3.1 BUN 16 Creatinine 0.4 L Est GFR (CKD-EPI 2020) 110.45 Glucose 85 Calcium 8.6 Total Bilirubin 0.5 Conjugated Bilirubin AST 449 H ALT 531 H Alkaline Phosphatase 228 H Troponin I Total Protein 4.6 L Albumin 1.9 L Procalcitonin TSH Urine Color Urine Clarity Urine pH Ur Specific [place] Urine Protein Urine Ketones Urine Blood Urine Nitrite Urine Bilirubin Urine Urobilinogen Ur Leukocyte Esterase Urine RBC Urine WBC Ur Epithelial Cells Urine Crystals Urine Bacteria Urine Casts Urine Mucus Ur Culture Indicated? Urine Glucose Random Vancomycin B. divergens/MO-1 PCR Babesia duncani (PCR) Babesia microti DNA PCR Lyme Disease Antibody COVID-19 Source SARS-CoV-2 (PCR) E.chaffeensis DNA (PCR) E.ewingii/canis DNA PCR E.muris eauclairensis (PCR) Hepatitis A IgM Ab Hep Bs Antigen Hep B Core Total Ab Hepatitis C Antibody Influenza Type A (PCR) Influenza Type B (PCR) RSV (PCR) MRSA (TEM-PCR) A. phagocytophilum (PCR) Blood B. miyamotoi (PCR) 05/26/25 06:20 WBC 6.70 RBC 3.45 L Hgb 10.8 L Hct 33.3 L MCV 97 H MCH 31.3 MCHC 32.4 RDW 14.2 Plt Count 110 L MPV 9.9 Immature Gran % Neutrophils % Lymphocytes % Monocytes % Eosinophils % Basophils % Nucleated RBC % Absolute Neutrophils Absolute Lymphocytes Absolute Monocytes Absolute Eosinophils Absolute Basophils PT INR APTT VBG pH VBG pCO2 VBG pO2 VBG HCO3 VBG Total CO2 VBG O2 Saturation VBG Base Excess VBG Lactate Sodium 139 Potassium 4.0 Chloride 101 Carbon Dioxide 33.3 H Anion Gap 4.7 BUN 7 Creatinine 0.5 L Est GFR (CKD-EPI 2020) 104.67 Glucose 71 L Calcium 8.7 Total Bilirubin 0.4 Conjugated Bilirubin 0.2 AST 146 H ALT 373 H Alkaline Phosphatase 245 H Troponin I Total Protein 4.8 L Albumin 2.0 L Procalcitonin TSH Urine Color Urine Clarity Urine pH Ur Specific [place] Urine Protein Urine Ketones Urine Blood Urine Nitrite Urine Bilirubin Urine Urobilinogen Ur Leukocyte Esterase Urine RBC Urine WBC Ur Epithelial Cells Urine Crystals Urine Bacteria Urine Casts Urine Mucus Ur Culture Indicated? Urine Glucose Random Vancomycin B. divergens/MO-1 PCR Babesia duncani (PCR) Babesia microti DNA PCR Lyme Disease Antibody COVID-19 Source SARS-CoV-2 (PCR) E.chaffeensis DNA (PCR) E.ewingii/canis DNA PCR E.muris eauclairensis (PCR) Hepatitis A IgM Ab Hep Bs Antigen Hep B Core Total Ab Hepatitis C Antibody Influenza Type A (PCR) Influenza Type B (PCR) RSV (PCR) MRSA (TEM-PCR) A. phagocytophilum (PCR) Blood B. miyamotoi (PCR) Preliminary micro results at discharge 05/23/25 01:21 Blood Blood Culture - Preliminary NO GROWTH 72 HOURS 05/23/25 00:37 Blood Blood Culture - Preliminary NO GROWTH 72 HOURS PFSH All Active Problems (Updated 05/26/25 @ 07:30 by Jose A Jack) Transaminitis (Acute) Hypokalemia (Acute) Septic shock (Acute) CVA (cerebral vascular accident) (Chronic) Septic shock (Acute) HLD (hyperlipidemia) (Acute) HTN (hypertension) with goal to be determined (Chronic) Aspiration pneumonia (Acute) Acute hypoxemic respiratory failure (Acute) Weakness (Acute) DNR (do not resuscitate) (Acute) See 11/14/24 COLST: DNR/DNI, yes transfer to the hospital and treat, use trial of antibiotics and IV fluids. No feeding tube. Osteoporosis (Chronic) Advanced care planning/counseling discussion (Acute) Ambulatory dysfunction (Acute) Bipolar 1 disorder (Acute) Anxiety and depression (Chronic) Fracture of left proximal fibula (Acute) Closed fracture of left distal tibia (Acute) Medical History (Updated 05/26/25 @ 07:30 by Jose A Jack) Palliative care encounter Chronic neck pain with history of cervical spinal surgery Smoker Migraine CAD (coronary artery disease) Prediabetes Cervical stenosis of spinal canal Asthma Surgical History History of cholecystectomy open H/O gastric bypass Stented coronary artery Social History Smoking/Tobacco Use Status: Former Tobacco Use Quit Date: 02/23/24 Smoking risk assessment performed?: Yes Alcohol Intake: never Substance use type: marijuana Housing: assisted living facility Do you feel safe at home: Yes Do you feel safe in your relationship?: Yes Time Spent with Patient Time Spent with Patient: 45-69 minutes Time was spent: preparing to see the patient(eg.review tests), obtaining and/or reviewing separately otained hiistory, ordering medications,tests, procedures, referring, communicating with other health manager intensive care unit, indepentently interpreting results, counseling the patient and care coordination
[2025-05-26] MEDS: Lidocaine 5% Patch 1 PATCH TP (08:03)
[2025-05-26] MEDS: Enoxaparin 40 MG/0.4 ML SYR SC (08:03)
[2025-05-26] MEDS: Polyethylene Glycol 3350 17 GM PACKET PO (08:03)
[2025-05-26] MEDS: Calcium Citrate 950 MG TAB PO (08:04)
[2025-05-26] MEDS: FLUoxetine 20 MG CAP 80 MG PO (08:04)
[2025-05-26] MEDS: Aspirin E.C. 81 MG TABEC PO (08:04)
[2025-05-26] MEDS: Senna TAB 1 TAB PO (08:04)
[2025-05-26] MEDS: Docusate Sodium 100 MG CAP PO (08:04)
[2025-05-26] MEDS: Divalproex 250 MG TABEC PO (08:04)
[2025-05-26] MEDS: Lactobacillus Acidophilus CAP 1 CAP PO (08:04)
[2025-05-26] MEDS: Omeprazole 20 MG CAPCR 40 MG PO (08:04)
[2025-05-26] MEDS: Normal Saline Flush 10 ML SYR IVP (08:04)
[2025-05-26 09:15] VITALS: PULSE 74; O2SAT 94
[2025-05-26] MEDS: cefTRIAXone 2 GM/50 ML BAG IVPB (09:59)
[2025-05-26] MEDS: Doxycycline Hyclate 100 MG CAP PO (11:19)
[2025-05-26 11:25] VITALS: BP 148/80; PULSE 58; RESP 18; TEMP 36.8; O2SAT 96
--- NOTE | 2025-05-26 12:10 | PTTR_ITS ---
PT Notes Visit Reasons: Septic shock, Aspiration Pneumonia Inpatient Physical Therapy Treatment Note [facility] Date: [05/26/2025] PRECAUTIONS:[]fall risk SUBJECTIVE: []I hope they are not disappointed at the rehab, I was doing good. Hx of present admission:Patient Profile/Admitting Diagnosis: septic shock, aspiration pneumonia PMHX: CVA in 2004 Social History/Home Situation: Lives in a [facility] where she gets physical therapy each day Current Functional Limitations: ambulates to the bathroom and back independently with a RW but if she walks farther than that she has to call for assistance, does not need to manage any stairs OBJECTIVE: [] Therapeutic Activities - (01067 x[3]): instruction in dynamic activities with one on one patient contact by the provider to improve functional performance as follows: Provided skilled cues and instruction on performance and technique throughout. [] Transfers: supine to sit with HOB elevated SBA , sit to supine occasionally needs min A of 1 to aide right LE sit to stand and stand to sit to chair SBA with v/c for hand placement very occasssionally repeated 4x Ambulates: with FWRW 60' with SBA with v/c to look up Sit to stand from chair, to RW and ambulate 8' and maneuver to toilet with min A to sit down to toilet, and stand for 1 min at RW to be cleaned and returned to chair also SBA. Balance: Standing at RW letting go 4x10 sec with reaching with left UE Standing and using RW for support marching in place x 20 sec PAIN: []no c/o pain VITALS: monitored by nursing staff ASSESSMENT: [] Pt is currently A+Ox4 and functioning close to her baseline. She is requiring min assist to get into bed due to RLE weaknesses but it is likely that this was present before admission due to a previous stroke. She was able to ambulate about 60 ft w/SBA and a RW , does demonstrate a right foot drop that increases her risk for falling. She is cleared to return back to her living facility when medically cleared but will continue to benefit from PT services while in the hospital to optimize her level of function and decrease her fall risk. PLAN: []1-2x/day, 7 days/week x 1 week. Plan of care has been reviewed with the ELECTRICAL MECHANICAL TECHNICIAN providing the service under Physical Therapy direction. Initiate Physical Therapy intervention for strengthening, bed mobility, transfers, gait, stairs, balance training, use of assistive device. DISCHARGE RECOMMENDATIONS: Discharge back to SNF with continued PT services TREATMENT CODE/TIME:[id number] 1:30-11:45
--- NOTE | 2025-05-26 12:50 | PDOC.CMDIS ---
Date of service: 05/26/25 Time of Service: 12:50 LACE Index Scoring Tool Questions: Length of Stay (in days): 3 Was the patient admitted via the E.D.?: Yes Comorbidities: Cerebrovascular Disease E.D. Visits: 5 Answers: Total Score: 11 Risk of Readmission: High Risk Care Management Discharge Plan Reason for Hospitalization: pneumonia Discharge Plan: Jeannie will be transferred back to [facility] where she resides. She will follow up with the facility providers and plan of care and transport via [facility] W/C van coordinated by CM. Patient/Family Education Needs: Review of discharge instructions, limitations, follow up plan and discuss [facility] Health Related Social Needs: Health related social needs details Pt lives at [facility].
--- NOTE | 2025-05-26 13:17 | W.PC.ACHO ---
Registration Status: ADM IN Primary Language: Preferred Language: ED Information & Data Chief Complaint AMS/LOC 05/23/25 00:25 Triage Note Arrived via EMS who were 05/23/25 00:25 called to [facility] because they think the pt is having a stroke. EMS states BP low enroute 60s systolic. Pt's baseline allegedly up and about Medical / Surgical History (Last Updated 05/23/25 @ 03:44 by Freddy Butts) Palliative care encounter Chronic neck pain with history of cervical spinal surgery Smoker Migraine CAD (coronary artery disease) Prediabetes Cervical stenosis of spinal canal Asthma (Last Reviewed 05/23/25 @ 03:06 by Freddy Butts) History of cholecystectomy H/O gastric bypass Stented coronary artery Most Recent Vital Signs Temperature 36.8 C 05/26/25 11:25 Temperature Source Temporal Artery Scan 05/26/25 11:25 Pulse 58 L 05/26/25 11:25 Pulse 54 L 05/24/25 22:00 Respiratory Rate 18 05/26/25 11:25 Respiratory Effort Normal 05/23/25 05:50 Respiratory Depth Normal 05/23/25 05:50 Respiratory Pattern Normal 05/23/25 05:50 Blood Pressure 148/80 H 05/26/25 11:25 Blood Pressure Mean 102 05/26/25 11:25 Blood Pressure Position Sitting 05/23/25 00:25 Pulse Oximetry 96 05/26/25 11:25 Oxygen Delivery Method Room Air 05/26/25 11:25 Oxygen Flow Rate 0 05/26/25 11:25 Pain Level 4 05/26/25 05:23 Comment Pt refused vitals, pt sleeping. Pt's vitals are Q4 while awake. 05/25/25 03:44 Arterial Systolic 79 05/23/25 04:30 Arterial Diastolic 62 05/23/25 04:30 Arterial Mean 85 05/23/25 05:10 Allergies morphine Allergy (Verified 05/01/25 10:49) Unknown oxycodone Allergy (Verified 05/01/25 10:49) Unknown prednisone Allergy (Verified 05/01/25 10:49) Unknown sumatriptan (From Imitrex) Allergy (Verified 05/01/25 10:49) Unknown varenicline (From Chantix) Allergy (Verified 05/01/25 10:49) Unknown ampicillin (From ampicillin-sulbactam) Adverse Reaction (Intermediate, Verified 05/26/25 07:32) Other (See Comment) possible drug induced liver injury, monitor LFTs if trialing again sulbactam (From ampicillin-sulbactam) Adverse Reaction (Intermediate, Verified 05/26/25 07:32) Other (See Comment) possible drug induced liver injury, monitor LFTs if trialing again Active Medications Generic Name Dose Route Start Last Admin Trade Name Freq PRN Reason Stop Dose Admin Acetaminophen 650 mg 05/23/25 05:38 05/26/25 05:23 Acetaminophen 325 Mg Tab PO 650 mg Q4H PRN PRN Administration Acidophilus/Pectin 1 cap 05/23/25 08:30 05/26/25 08:04 Lactobacillus Acidophilus Cap PO 1 cap DAILY MARIA VICTORIA Administration Aspirin 81 mg 05/23/25 08:30 05/26/25 08:04 Aspirin E.C. 81 Mg Tabec PO 81 mg DAILY MARIA VICTORIA Administration Atorvastatin Calcium 40 mg 05/23/25 20:00 05/25/25 20:35 Atorvastatin 40 Mg Tab PO 40 mg QPM MARIA VICTORIA Administration Budesonide/Formoterol Fumarate 2 puff 05/23/25 08:30 05/26/25 07:39 Budesonide/Formoterol 160/4.5 6 Gm 60 Puff Inh IH 2 puff BID MARIA VICTORIA Administration Calcium Citrate 950 mg 05/23/25 08:30 05/26/25 08:04 Calcium Citrate 950 Mg Tab PO 950 mg DAILY MARIA VICTORIA Administration Cholecalciferol 1,000 units 05/23/25 20:00 05/25/25 20:34 Cholecalciferol (Vitamin D3) 1,000 Unit Tab PO 1,000 units HS MARIA VICTORIA Administration Clonazepam 0.25 mg 05/24/25 20:00 05/25/25 20:34 Clonazepam 0.5 Mg Tab PO 0.25 mg QPM MARIA VICTORIA Administration Cyanocobalamin 1,000 mcg 05/23/25 20:00 05/25/25 20:34 Cyanocobalamin 500 Mcg Tab PO 1,000 mcg HS MARIA VICTORIA Administration Divalproex Sodium 250 mg 05/23/25 08:30 05/26/25 08:04 Divalproex 250 Mg Tabec PO 250 mg BID MARIA VICTORIA Administration Docusate Sodium 100 mg 05/23/25 08:30 05/26/25 08:04 Docusate Sodium 100 Mg Cap PO 100 mg BID MARIA VICTORIA Administration Doxycycline Hyclate 100 mg 05/25/25 12:00 05/26/25 11:19 Doxycycline Hyclate 100 Mg Cap PO 100 mg BID@1200,2000 MARIA VICTORIA Administration Enoxaparin Sodium 40 mg 05/23/25 08:30 05/26/25 08:03 Enoxaparin 40 Mg/0.4 Ml Syr SC 40 mg DAILY MARIA VICTORIA Administration Ferrous Sulfate 325 mg 05/24/25 08:30 05/24/25 08:33 Ferrous Sulfate 325 Mg Tab PO 325 mg MoWeFr@0830 MARIA VICTORIA Administration Fluoxetine HCl 80 mg 05/24/25 08:30 05/26/25 08:04 Fluoxetine 20 Mg Cap PO 80 mg DAILY MARIA VICTORIA Administration Ceftriaxone Sodium/Dextrose 2 gm in 50 mls @ 100 mls/hr 05/26/25 10:00 05/26/25 10:52 Rocephin IVPB Infused Q24H MARIA VICTORIA Infusion Levothyroxine Sodium 50 mcg 05/23/25 06:00 05/26/25 05:23 Levothyroxine 50 Mcg Tab PO 50 mcg 0600 MARIA VICTORIA Administration Lidocaine 1 patch 05/23/25 08:30 05/26/25 08:03 Lidocaine 5% Patch TP 1 patch DAILY MARIA VICTORIA Administration Magnesium Oxide 400 mg 05/23/25 20:00 05/25/25 20:34 Magnesium Oxide 400 Mg Tab PO 400 mg QPM MARIA VICTORIA Administration Miscellaneous 1 each 05/23/25 20:30 05/25/25 20:39 Patch Removal TP 1 each 2030 MARIA VICTORIA Administration Omeprazole 40 mg 05/24/25 07:30 05/26/25 08:04 Omeprazole 20 Mg Capcr PO 40 mg DAILY@0730 MARIA VICTORIA Administration Polyethylene Glycol 17 gm 05/23/25 08:30 05/26/25 08:03 Polyethylene Glycol 3350 17 Gm Packet PO 17 gm DAILY MARIA VICTORIA Administration Sennosides 1 tab 05/23/25 08:30 05/26/25 08:04 Senna Tab PO 1 tab DAILY MARIA VICTORIA Administration Sodium Chloride 0 ml 05/23/25 00:28 05/24/25 05:28 Normal Saline Flush 10 Ml Syr IVP 60 ml PRN PRN Administration Sodium Chloride 0 ml 05/23/25 08:30 05/26/25 08:04 Normal Saline Flush 10 Ml Syr IVP 10 ml BID MARIA VICTORIA Administration Tizanidine HCl 4 mg 05/23/25 20:00 05/25/25 20:35 Tizanidine 4 Mg Tablet PO 4 mg HS MARIA VICTORIA Administration Trazodone HCl 50 mg 05/23/25 20:00 05/25/25 20:35 Trazodone 50 Mg Tab PO 50 mg HS MARIA VICTORIA Administration Umeclidinium [place] 1 cap 05/23/25 08:30 05/26/25 07:39 Umeclidinium 7 Cap Inhaler IH 1 puff DAILY MARIA VICTORIA Administration IV IV Catheter Type [Right triple lumen EJ External Jugular] IV Catheter Type [Right Saline Lock Antecubital] IV Catheter Type [Left Saline Lock Antecubital] IV Catheter Gauge [Right 20 Antecubital] IV Catheter Gauge [Left 18 Antecubital] Diagnostics 05/26/25 Range/Units 06:20 WBC 6.70 (4.4-10.8) 10^3/uL RBC 3.45 L (3.93-5.22) 10^6/uL Hgb 10.8 L (11.2-15.7) g/dL Hct 33.3 L (36.0-46.0) % MCV 97 H (80-95) fL MCH 31.3 (27.0-33.0) pg MCHC 32.4 (32.0-36.0) % RDW 14.2 (11.7-14.6) % Plt Count 110 L (130-400) 10^3/uL MPV 9.9 (8.0-11.0) fL Sodium 139 (136-145) mmol/L Potassium 4.0 (3.5-5.1) mmol/L Chloride 101 (98-107) mmol/L Carbon Dioxide 33.3 H (21.0-32.0) mmol/L Anion Gap 4.7 (3-11) mmol/L BUN 7 (7-18) mg/dL Creatinine 0.5 L (0.55-1.02) mg/dL Est GFR (CKD-EPI 2020) 104.67 (mL/min/1.73m2) Glucose 71 L (74-106) mg/dL Calcium 8.7 (8.5-10.1) mg/dL Total Bilirubin 0.4 (0.2-1.0) mg/dL Conjugated Bilirubin 0.2 (0.0-0.2) mg/dL AST 146 H (15-37) U/L ALT 373 H (14-59) U/L Alkaline Phosphatase 245 H (46-116) U/L Total Protein 4.8 L (6.4-8.2) g/dL Albumin 2.0 L (3.4-5.0) g/dL 05/23/25 01:21 Blood Culture - Preliminary Blood NO GROWTH 72 HOURS 05/23/25 00:37 Blood Culture - Preliminary Blood NO GROWTH 72 HOURS [id number] Documentation Fingerstick Glucose Start: 05/23/25 00:36 Freq: Status: Complete Protocol: Activity Type Activity Date Activity User E-sign Co-sign Detail Recorded Client Recorded Date Recorded By Document 05/23/25 00:35 BKG DAEMON(3) [id number] 05/23/25 00:36 BKG DAEMON(4) Intake and Output - 24 Hour Total 05/23/25 00:23 thru 05/26/25 12:25 Intake Total 8804.490 Output Total 6325 Balance 2479.490 Weight 71.8 kg Intake: IV 6442.490 Oral 2362 Output: Urine 6325 Other: Urine Color Yellow Urine Appearance Clear Urine Odor Normal Comment jaquez catheter in place Stool Size Moderate Stool Characteristics Formed [place] Risk Assessment History of Falls Previous History 05/23/25 04:27 Contributing Factors Confusion,Unstable, 05/23/25 04:27 Impairments,Incontinence Ambulatory Aids Uses ambulatory device 05/23/25 04:27 Tubes/Lines None 05/23/25 04:27 Gait Evaluation W/no contributing factors 05/23/25 04:27 Cognition Cognitive impairment 05/23/25 04:27 Fall Total Score 67 05/23/25 04:27 Level of Risk High Risk 05/23/25 04:27 Problems (Last Updated 05/23/25 @ 03:44 by Freddy Butts) Transaminitis (Acute) Hypokalemia (Acute) Septic shock (Acute) CVA (cerebral vascular accident) (Chronic) Septic shock (Acute) HTN (hypertension) with goal to be determined (Chronic) Aspiration pneumonia (Acute) Anxiety and depression (Chronic) v v v v v v v v v Sending and/or Receiving Nurses: Please use comment section below to note any information pertinent to the patient hand-off not included above. Information / Comments: Report received from: report given to candace BENNETT at [facility] at 1300
[2025-05-27 09:57] LABS: Lyme Ab w Rflx to Lyme Confirm Negative (Negative)
[2025-05-27 10:27] LABS: Hepatitis A Antibody IgM Negative (Negative); Hepatitis C Ab w Rflx HCV PCR Negative (Negative)
[2025-05-28 16:29] LABS: B. miyamotoi PCR Negative (Negative); Babesia divergens/MO-1 Negative (Negative); Ehrlichia muris eauclairensis Negative (Negative)
--- NOTE | 2025-06-02 16:18 | NUR.NOTE ---
Access chart to reconcile EKG orders with EKG's in [facility]. Duplicate order cancelled.Nursing Note:
== END 2025-05-26 13:45 | disposition skilled nursing facility (03) | DRG 871 ==
LOC: ER 04:09 → ICU 05:25 → MS 05-24 22:52
PROVIDERS: Admitting Provider Family Medicine; Emergency Provider Student in an Organized Health Care Education/Training Program; PCP Nurse Practitioner Family; Responsible Provider Family Medicine; Visit Provider Family Medicine
DX: A41.9 Sepsis, unspecified organism (principal); R65.21 Severe sepsis with septic shock; J69.0 Pneumonitis due to inhalation of food and vomit; I10 Essential (primary) hypertension; F41.9 Anxiety disorder, unspecified; F31.9 Bipolar disorder, unspecified; I25.10 Atherosclerotic heart disease of native coronary artery without angina pectoris; E87.6 Hypokalemia; I69.354 Hemiplegia and hemiparesis following cerebral infarction affecting left non-dominant side; R74.01 Elevation of levels of liver transaminase levels; H53.462 Homonymous bilateral field defects, left side; Z66 Do not resuscitate; R41.82 Altered mental status, unspecified; E78.5 Hyperlipidemia, unspecified; R53.1 Weakness; M81.0 Age-related osteoporosis without current pathological fracture; G43.909 Migraine, unspecified, not intractable, without status migrainosus; R73.03 Prediabetes; J45.909 Unspecified asthma, uncomplicated; Z87.891 Personal history of nicotine dependence; Z79.899 Other long term (current) drug therapy; D69.6 Thrombocytopenia, unspecified; K22.2 Esophageal obstruction
CPT/HCPCS: 00123; 36415; 36416; 36556; 36592; 70496; 70498; 71250; 76937; 80048; 80053; 80076; 82805; 82962; 84145; 85027; 86704; 86709; 86803; 87040; 87340; 87637; 87641; 87798; 92610; 93005; 93308; 94640; 96365; 96366; 96367; 96368; 97161; 97530; 99291; J1650; 36620; 71045; 74176; 76700; 80202; 81003; 81015; 83605; 84443; 84484; 85025; 85610; 85730; 86618; 87086; 93010; 94664; 94760; 99223; 99232; 99233; 99239; J0295; J0696; J2543; J3373; J3490

== ENCOUNTER 2025-06-10 14:08 | Outpatient (REF) | payer MEDICARE, MEDICAID, SELFPAY ==
[2025-06-10 13:48] LABS: Abs Immature Grans 0.04 10^3/uL (0.0-0.06); HCT 36.1 % (36.0-46.0); HGB 11.6 g/dL (11.2-15.7); Immature Grans % 0.4 %; MCH 32.0 pg (27.0-33.0); MCHC 32.1 % (32.0-36.0); MCV 99 fL (80-95); MPV 10.3 fL (8.0-11.0); Platelet Count 228 10^3/uL (130-400); RBC 3.63 10^6/uL (3.93-5.22); RDW 14.3 % (11.7-14.6); RDW-SD 52.5 fL; WBC 9.16 10^3/uL (4.4-10.8)
[2025-06-10 13:58] LABS: Iron 66 ug/dL (50-170); Magnesium 1.9 mg/dL (1.6-2.6)
[2025-06-10 13:59] LABS: ALT 20 U/L (10-49); AST 23 U/L (<34); Albumin 3.4 g/dL (3.4-5.0); Alkaline Phosphatase 105 U/L (46-116); Anion Gap 5.5 mmol/L (3-11); BUN 31 mg/dL (9-23); Bilirubin, Total 0.40 mg/dL (0.2-1.2); CO2 31.5 mmol/L (20.0-31.0); Calcium 9.2 mg/dL (8.3-10.6); Chloride 102 mmol/L (98-107); Glucose 79 mg/dL (74-106); Potassium 4.6 mmol/L (3.5-5.1); Sodium 139 mmol/L (136-145); Total Protein 5.5 g/dL (5.7-8.2)
[2025-06-10 14:03] LABS: Ferritin 162 ng/mL (7-271); Vitamin D 25 Total 62 ng/mL (30-100)
== END 2025-06-10 14:09 | disposition home or self-care (01) ==
LOC: LBN 14:08
PROVIDERS: PCP Nurse Practitioner Family; Visit Provider Nurse Practitioner Adult Health
DX: R74.01 Elevation of levels of liver transaminase levels (principal)
CPT/HCPCS: 80053; 82306; 82728; 83540; 83735; 85025

== ENCOUNTER 2025-07-23 13:01 | Outpatient (REF) | payer MEDICARE, MEDICAID, SELFPAY ==
[2025-07-23 15:48] LABS: Cholesterol 86 mg/dL (<200); HDL Cholesterol 43 mg/dL (>or=50); TSH 0.84 uIU/mL (0.55-4.78); Vitamin B12 1947 pg/mL (211-911); Vitamin D 25 Total 83 ng/mL (30-100)
== END 2025-07-23 13:02 | disposition home or self-care (01) ==
LOC: LBN 13:01
PROVIDERS: PCP Nurse Practitioner Family; Visit Provider Nurse Practitioner Adult Health
DX: I11.0 Hypertensive heart disease with heart failure (principal); E78.5 Hyperlipidemia, unspecified; E03.9 Hypothyroidism, unspecified
CPT/HCPCS: 80061; 82306; 80164; 82607; 84443